=== PATIENT | female | born 1985 | race Caucasian/White ===

== ENCOUNTER 2020-10-20 17:32 | Emergency (ER) | payer OTHER, SELFPAY ==
[2020-10-20 17:45] VITALS: BP 124/82; PULSE 75; RESP 16; TEMP 36.5; O2SAT 96
--- NOTE | 2020-10-20 18:05 | ED.WOUNDLAC ---
HPI - Wound/Laceration General Chief Complaint: Wound/Laceration Stated Complaint: cut finger Time Seen by Provider: 10/20/20 17:50 Source: patient Mode of arrival: ambulatory Limitations: no limitations History of Present Illness HPI narrative: Patient comes in after cutting off tip of left index finger. The laceration was fairly close to the periosteum, and it appears she was bleeding quite a bit to start with, but this has now stopped. Laceration happened just prior to arrival. Place: home Patient tetanus UTD: Yes Context: accidental Associated symptoms: pain Related Data Home Medications Medication Instructions Recorded Confirmed norethindrone-e.estradiol-iron 1 tablet PO DAILY 10/20/20 10/20/20 [Aurovela Fe 1-20 (28)] Allergies Allergy/AdvReac Type Severity Reaction Status Date / Time No Known Allergies Allergy Unverified 09/12/11 13:22 Review of Systems Constitutional: Constitutional: Reports no additional constitutional complaints Eyes: Eyes: Reports no additional eye complaints ENT: Reports system reviewed and no additional complaints, except as documented Cardiovascular: Cardiovascular: Reports no additional cardiovascular complaints Respiratory: Respiratory: Reports no additional respiratory complaints Gastrointestinal: Gastrointestinal: Reports no additional gastrointestinal complaints Genitourinary: Genitourinary: Reports no additional female genitourinary complaints Musculoskeletal: Musculoskeletal: Reports no additional musculoskeletal complaints Integumentary/Breasts: Skin/Breast: Reports system reviewed and no additional complaints, except as docu Neurologic: Reports system reviewed and no additional complaints, except as documented Psychiatric: Psychiatric: Reports no additional psychiatric complaints Endocrine: Endocrine: Reports no additional endocrine complaints Hematologic/Lymphatic: Hematologic/Lymphatic: Reports no additional hematologic/lymphatic complaints Allergic/Immunologic: Allergic/Immunologic: Reports no additional allergic/immunologic complaints [facility] Past Medical History Medical History (Updated 10/21/20 @ 00:12 by Fran Thurman MD) Renal calculi Surgical History Surgical History History of cholecystectomy Family History Family History Mother Family history non-contributory Social History Social History Smoking status: Never smoker Alcohol intake: never Exam Const: General: no acute distress Orientation/consciousness: patient oriented x3 HENMT: Head: normal to inspection Ears: external ears normal Face and sinus: normal facial exam Mouth: Yes Abnormal oral and palatal mucosa present Throat: posterior oropharynx normal Eyes: Conjunctivae: conjunctivae normal Neck: Neck: normal visual inspection and no lymphadenopathy Chest: Chest palpation & inspection: normal inspection of the chest Resp: Effort & Inspection: normal respiratory effort Auscultation: clear to auscultation bilaterally Cardio: Rate: regular rate Rhythm: regular rhythm GI: GI Palp: Yes Soft to palpation (nontender) Skin: General skin exam: normal color Other: Tip of left index finger has been cut off. THis wound is now no longer bleeding. Neuro: General: patient oriented x3 Extrem: General: normal to inspection Psych: Appearance: grossly normal Mental Status: mental status grossly normal Thought content: Yes Normal thought content present Course Course Emergency Course: Wound was simply washed. It spontaneously achieved hemostasis. Vital Signs Vital signs: Vital Signs Temperature 36.5 C 10/20/20 17:45 Pulse Rate 75 10/20/20 17:45 Respiratory Rate 16 10/20/20 17:45 Blood Pressure 124/82 10/20/20 17:45 Pulse Oximetry 96 10/20/20 17:45 Temperature 36.5 C 10/20/20 18:07
[2020-10-20 18:07] VITALS: BP 124/82; PULSE 75; RESP 15; TEMP 36.5; O2SAT 96
== END 2020-10-20 18:05 | disposition home or self-care (01) ==
PROVIDERS: Emergency Provider Emergency Medicine; PCP Family Medicine
DX: S61.211A Laceration without foreign body of left index finger without damage to nail, initial encounter (principal); W45.8XXA Other foreign body or object entering through skin, initial encounter
CPT/HCPCS: 99282

== ENCOUNTER 2021-07-13 08:00 | Outpatient (CLI) | payer OTHER, SELFPAY ==
[2021-07-13 08:20] LABS: Basophils Absolute Auto 0.02 K/mm3 (0.00-0.10); Basophils Percent Auto 0.3 % (0.0-1.0); Eosinophils Absolute Auto 0.14 K/mm3 (0.02-0.50); Eosinophils Percent Auto 1.9 % (1.0-6.0); Hematocrit 38.9 % (35.0-49.0); Hemoglobin 13.3 g/dL (12.0-15.0); Immature Granulocyte Absolute 0.02 K/mm3 (0.00-0.00); Immature Granulocyte Percent A 0.3 % (0.0-0.0); Lymphocytes Absolute Auto 2.25 K/mm3 (1.10-4.50); Mean Corpuscular HGB Conc 34.2 g/dL (32.0-36.0); Mean Corpuscular Hemoglobin 28.4 pg (27.0-31.0); Mean Corpuscular Volume 82.9 fL (78.0-102.0); Mean Platelet Volume 8.9 fl (9.2-11.8); Monocytes Absolute Auto 0.65 K/mm3 (0.10-0.90); Neutrophils Absolute Auto 4.2 K/mm3 (1.7-7.2); Neutrophils Percent Auto 57.5 % (50.0-70.0); Platelet Count Result 250 K/mm3 (150-420); Red Blood Count 4.69 M/mm3 (4.20-5.40); Red Cell Distribution Width 12.9 % (11.6-14.4); White Blood Count 7.3 K/mm3 (4.8-10.8)
[2021-07-13 09:15] LABS: Alanine Aminotransferase 20 U/L (14-59); Alkaline Phosphatase 72 U/L (46-116); Anion Gap 11 mmol/L (8-16); Aspartate Amino Transferase 13 U/L (15-37); Bilirubin,Total 0.4 mg/dL (0.00-1.00); Blood Urea Nitrogen 11 mg/dL (7-18); Calcium 8.3 mg/dL (8.5-10.1); Carbon Dioxide 24 mmol/L (21-32); Chloride 106 mmol/L (98-108); Cholesterol 193 mg/dL (0-200); Estimated Glomerular Filt Rate > 60; Glucose 88 mg/dL (70-99); HDL Direct 39 mg/dL (40-60); LDL Cholesterol Calculated 117 mg/dL (<130); Osmolality Calculated 290 mOsm/kg (285-295); Potassium 4.2 mmol/L (3.5-5.1); Sodium 141 mmol/L (136-145); Thyroid Stimulating Hormone 1.92 uIU/mL (0.36-3.74); Total Protein 6.7 g/dL (6.4-8.2); Triglycerides 186 mg/dL (0-150)
== END 2021-07-13 08:01 | disposition home or self-care (01) ==
LOC: CHSLAB 08:05
PROVIDERS: PCP Family Medicine
DX: N92.0 Excessive and frequent menstruation with regular cycle (principal); Z13.0 Encounter for screening for diseases of the blood and blood-forming organs and certain disorders involving the immune mechanism; Z13.29 Encounter for screening for other suspected endocrine disorder; Z13.1 Encounter for screening for diabetes mellitus; Z13.220 Encounter for screening for lipoid disorders
CPT/HCPCS: 36415; 80053; 80061; 84443; 85025

== ENCOUNTER 2022-04-07 17:24 | Emergency (ER) | payer OTHER, SELFPAY ==
[2022-04-07 17:33] VITALS: BP 123/91; PULSE 101; RESP 16; TEMP 36.4; O2SAT 99
--- NOTE | 2022-04-07 17:40 | ED.GENADULT ---
HPI - General Adult General Chief complaint: Unspecified Stated complaint: spider bite L arm History of Present Illness HPI narrative: Sarah presented to the ED with a spider bite on her left forearm that that occurred 2 days ago. She thinks there might be some redness swelling. There is no drainage, fevers, chills or systemic symptoms reported. Related Data Home Medications Medication Instructions Recorded Confirmed norethindrone 1 mg-ethinyl 1 tablet PO DAILY 10/20/20 04/07/22 estradiol 20 mcg (21)-iron 75 mg (7) tablet (Aurovela Fe 1-20 (28)) Allergies Allergy/AdvReac Type Severity Reaction Status Date / Time No Known Allergies Allergy Unverified 04/07/22 17:37 Review of Systems Review of Systems: All systems reviewed & are unremarkable except as noted in HPI and below PMFSH Past Medical History Medical History Renal calculi Surgical History Surgical History History of cholecystectomy Family History Family History Mother Family history non-contributory Social History Social History Smoking status: Never smoker Alcohol intake: never Exam Const: Nutritional Appearance: average body habitus and well nourished Orientation/consciousness: oriented to person, oriented to place and oriented to time HENMT: Head: normal to inspection Eyes: General: appearance normal, both eyes and all related structures Chest: Chest palpation & inspection: normal inspection of the chest Resp: Effort & Inspection: normal respiratory effort and able to speak in complete sentences Auscultation: clear to auscultation bilaterally Cardio: Rate: tachycardic Skin: Other: On the anterior side of the left forearm there is a small erythematous papule (<1mm) with no surrounding erythema, drainage, induration or fluctuance Neuro: General: oriented to person, oriented to place and oriented to time Extrem: General: normal to inspection Psych: Appearance: grossly normal Course Vital Signs Vital signs: Vital Signs Temperature 97.5 F L 04/07/22 17:33 Pulse Rate 101 H 04/07/22 17:33 Respiratory Rate 16 07/24/22 17:33 Blood Pressure 123/91 H 04/07/22 17:33 Pulse Oximetry 99 04/07/22 17:33 Oxygen Delivery Room Air 04/07/22 17:33 Temperature 97.5 F L 04/07/22 17:33 Pulse Rate 101 H 04/07/22 17:33 Respiratory Rate 16 04/07/22 17:33 Blood Pressure 123/91 H 04/07/22 17:33 Pulse Oximetry 99 04/07/22 17:33 Oxygen Delivery Room Air 04/07/22 17:33 Medical Decision Making Vital Signs Vital Signs: Vital Signs Temperature 97.5 F L 04/07/22 17:33 Pulse Rate 101 H 04/07/22 17:33 Respiratory Rate 16 04/07/22 17:33 Blood Pressure 123/91 H 04/07/22 17:33 Pulse Oximetry 99 04/07/22 17:33 Oxygen Delivery Room Air 04/07/22 17:33 Temperature 97.5 F L 04/07/22 17:33 Pulse Rate 101 H 04/07/22 17:33 Respiratory Rate 16 04/07/22 17:33 Blood Pressure 123/91 H 04/07/22 17:33 Pulse Oximetry 99 04/07/22 17:33 Oxygen Delivery Room Air 04/07/22 17:33 Discharge Plan Discharge Clinical Impression: Accidental spider bite Patient Disposition: Home, Self-Care Condition: Stable Prescriptions: No Action norethindrone-e.estradiol-iron [Aurovela Fe 1-20 (28)] 1 mg-20 mcg (21)/75 mg (7) tablet 1 tablet PO DAILY Follow-up/Referrals: Alex,Nilam Stoddard MD [Primary Care Provider] -
[2022-04-07 17:44] VITALS: BP 123/91; PULSE 101; RESP 16; TEMP 36.4; O2SAT 99
== END 2022-04-07 17:45 | disposition home or self-care (01) ==
PROVIDERS: Emergency Provider Family Medicine; PCP Family Medicine
DX: T63.301A Toxic effect of unspecified spider venom, accidental (unintentional), initial encounter (principal)
CPT/HCPCS: 99281

== ENCOUNTER 2022-07-03 15:34 | Outpatient (CLI) | payer OTHER, SELFPAY ==
--- NOTE | ~2022-07-03 | XR_ITS ---
EXAMINATION: XR chest 2V Exam Date/Time: 07/03/2022 15:45 CDT HISTORY: cough, nasal congestion Comparison: None available. RESULT: Lines, tubes, and devices: Cholecystectomy clips. Lungs and pleura: Clear. Cardiomediastinal silhouette: Normal. Other: No acute osseous or upper abdominal finding. IMPRESSION: No acute cardiopulmonary process. Reviewed, dictated and finalized at location K.
== END 2022-07-03 15:35 | disposition home or self-care (01) ==
LOC: CHSIMG 15:37
PROVIDERS: PCP Family Medicine; Visit Provider Family Medicine
DX: R05.9 Cough, unspecified (principal); R09.81 Nasal congestion
CPT/HCPCS: 71046

== ENCOUNTER 2022-10-01 11:07 | Emergency (ER) | payer OTHER, SELFPAY ==
[2022-10-01 11:07] VITALS: BP 146/93; PULSE 88; RESP 18; TEMP 36; O2SAT 98
[2022-10-01 11:13] VITALS: BP 149/93; PULSE 95; RESP 16; TEMP 36; O2SAT 98
--- NOTE | 2022-10-01 11:19 | ED.DENTAL ---
HPI - Dental/Oral General Chief complaint: Dental/Oral Stated complaint: dental pain Time Seen by Provider: 10/01/22 11:18 Source: patient and RN notes reviewed Mode of arrival: ambulatory Limitations: no limitations History of Present Illness Complaint: tooth pain Location: Tooth # (4) Onset (ago): day(s) (3) Duration: constant Severity: severe Relieving factors: nothing Treatment prior to arrival: topical analgesic and oral analgesic Related Data Home Medications Medication Instructions Recorded Confirmed norethindrone 1 mg-ethinyl 1 tablet PO DAILY 10/20/20 10/01/22 estradiol 20 mcg (21)-iron 75 mg (7) tablet (Aurovela Fe 1-20 (28)) Allergies Allergy/AdvReac Type Severity Reaction Status Date / Time No Known Allergies Allergy Unverified 10/01/22 11:16 Review of Systems Review of Systems: All systems reviewed & are unremarkable except as noted in HPI and below Constitutional: Constitutional: Denies chills and Denies fever(s) PMFSH Past Medical History Medical History Renal calculi Surgical History Surgical History History of cholecystectomy Family History Family History Mother Family history non-contributory Social History Social History Smoking status: Never smoker Alcohol intake: never Exam Const: General: healthy appearing and no acute distress Nutritional Appearance: well nourished and obese Orientation/consciousness: patient oriented x3 Limitations: no limitations HENMT: Head: normal to inspection Ears: external ears normal Face/Nose/Sinus: Normal external nose present Face and sinus: normal facial exam Teeth and gingiva: abnormal tooth and associated gingiva upper right second molar tender Throat: posterior oropharynx normal Eyes: Conjunctivae: conjunctivae normal Pupils: Equal, round and reactive pupils present EOM: EOMs intact bilaterally Neck: Neck: normal visual inspection Resp: Effort & Inspection: normal respiratory effort Auscultation: clear to auscultation bilaterally Cardio: Rate: regular rate Rhythm: regular rhythm GI: GI Palp: Yes Soft to palpation and No Tenderness to palpation present (GI) Auscultation: normal bowel sounds Back/Spine/Pelvis: Cervical Spine: cervical ROM normal Thoracic/Lumbar Spine: thoraco-lumbar ROM normal Skin: General skin exam: normal color Rashes: no rashes Neuro: General: patient oriented x3, moves all extremities, no focal motor deficits and CN's II-XI intact bilaterally Speech: normal speech Gait exam (Neuro): Normal gait present Extrem: General: normal to inspection and no clubbing, cyanosis or edema Psych: Mental Status: mental status grossly normal Affect: normal affect Attitude: cooperative Course Vital Signs Vital signs: Vital Signs Temperature 36.0 C L 10/01/22 11:07 Pulse Rate 88 10/01/22 11:07 Respiratory Rate 18 10/01/22 11:07 Blood Pressure 146/93 H 10/01/22 11:07 Pulse Oximetry 98 10/01/22 11:07 Oxygen Delivery Room Air 10/01/22 11:07 Temperature 36.0 C L 10/01/22 12:07 Pulse Rate 95 10/01/22 12:07 Respiratory Rate 16 10/01/22 12:07 Blood Pressure 149/93 H 10/01/22 12:07 Pulse Oximetry 98 10/01/22 12:07 Oxygen Delivery Room Air 10/01/22 12:07 MDM - Dental/Oral MDM Narrative Medical decision making narrative: under not see any evidence of infection. There is no abscess no swelling along the gum line. Differential Diagnosis Differential diagnosis: Likely gingival abscess, dental caries, toothache and dental abscess Discharge Plan Discharge Clinical Impression: Toothache Patient Disposition: Home, Self-Care Condition: Stable Instructions: Toothache (ED) Additional Instructions: Use Tylenol as needed in between the nab
[2022-10-01 12:07] VITALS: BP 149/93; PULSE 95; RESP 16; TEMP 36; O2SAT 98
== END 2022-10-01 12:08 | disposition home or self-care (01) ==
LOC: CHSED 11:35
PROVIDERS: Emergency Provider Emergency Medicine; PCP Family Medicine
DX: K08.89 Other specified disorders of teeth and supporting structures (principal)
CPT/HCPCS: 99283

== ENCOUNTER 2022-10-11 11:48 | Emergency (ER) | payer OTHER, SELFPAY ==
[2022-10-11 11:51] VITALS: BP 123/69; PULSE 89; RESP 16; TEMP 36.8; O2SAT 97
--- NOTE | 2022-10-11 12:03 | ED.URI ---
HPI - URI/Sore Throat General Chief Complaint: Upper Respiratory Infection Stated Complaint: flu symptoms Time Seen by Provider: 10/11/22 12:01 Source: patient and RN notes reviewed Mode of arrival: ambulatory Limitations: no limitations History of Present Illness MD elicited complaint: fever ( subjective) and sore throat Onset (ago): day(s) (1) Consistency: constant Severity: moderate Description of mucous: clear Able to tolerate fluids by mouth: Yes Exacerbating factors: swallowing Relieving factors: nothing Associated symptoms: chills and myalgias Treatments prior to arrival: ibuprofen and cold medicine Related Data Home Medications Medication Instructions Recorded Confirmed norethindrone 1 mg-ethinyl 1 tablet PO DAILY 10/20/20 10/11/22 estradiol 20 mcg (21)-iron 75 mg (7) tablet (Aurovela Fe 1-20 (28)) Allergies Allergy/AdvReac Type Severity Reaction Status Date / Time No Known Allergies Allergy Unverified 10/11/22 11:50 PMFSH Past Medical History Medical History Renal calculi Surgical History Surgical History History of cholecystectomy Family History Family History Mother Family history non-contributory Social History Social History Smoking status: Never smoker Alcohol intake: never Course Vital Signs Vital signs: Vital Signs Temperature 36.8 C 10/11/22 11:51 Pulse Rate 89 10/11/22 11:51 Respiratory Rate 16 10/11/22 11:51 Blood Pressure 123/69 10/11/22 11:51 Pulse Oximetry 97 10/11/22 11:51 Oxygen Delivery Room Air 10/11/22 11:51 Temperature 36.8 C 10/11/22 11:51 Pulse Rate 89 10/11/22 11:51 Respiratory Rate 16 10/11/22 11:51 Blood Pressure 123/69 10/11/22 11:51 Pulse Oximetry 98 10/11/22 12:40 Oxygen Delivery Room Air 10/11/22 12:40 MDM - URI/Sore Throat Differential Diagnosis Differential diagnosis: Likely upper respiratory infection, viral infection, bronchitis, influenza, pharyngitis and other ( COVID, strep pharyngitis) Lab Data Attestation: I reviewed the patient's lab results. Labs: Lab Results 10/11/22 10/11/22 Range/Units 12:01 12:01 Influenza A (RT-PCR) Negative (Negative) Influenza B (RT-PCR) Negative (Negative) SARS-CoV-2 RNA (RT-PCR) Negative (Negative) Group A Strep (PCR) Detected A (Negative) Discharge Plan Discharge Clinical Impression: Strep throat Patient Disposition: Home, Self-Care Condition: Stable Instructions: Antibiotic Form, Strep Throat (ED) Additional Instructions: focusing on the lips, do not drink from anyone else's glass, no one should drink [place] glass, in 3-4 days get a new toothbrush. If your sexually active use another form of control condoms, spermicide gel while you are on antibiotics. Prescriptions: New amoxicillin 250 mg capsule 250 mg PO TID 10 Days Qty: 30 0RF No Action norethindrone-e.estradiol-iron [Aurovela Fe 1-20 (28)] 1 mg-20 mcg (21)/75 mg (7) tablet 1 tablet PO DAILY Follow-up/Referrals: Alex,Nilam Stoddard MD [Primary Care Provider] - Time of Disposition: 12:52
--- NOTE | 2022-10-11 12:10 | PC.NURSE ---
In room with Dr. Johnson during physical exam
[2022-10-11 12:33] LABS: Strep Group A RT-PCR DETECTED (Negative)
[2022-10-11 12:40] VITALS: O2SAT 98
[2022-10-11 12:47] LABS: Influenza A QL RT-PCR Negative (Negative); Influenza B QL RT-PCR Negative (Negative); SARS-CoV-2 RNA PCR Negative (Negative)
[2022-10-11 12:58] VITALS: BP 151/98; PULSE 98; RESP 17; TEMP 36.9; O2SAT 98
== END 2022-10-11 13:00 | disposition home or self-care (01) ==
PROVIDERS: Emergency Provider Emergency Medicine; PCP Family Medicine
DX: J02.0 Streptococcal pharyngitis (principal); Z20.822 Contact with and (suspected) exposure to COVID-19
CPT/HCPCS: 87502; 87651; 99283; U0003; U0005

== ENCOUNTER 2023-07-08 10:24 | Emergency (ER) | payer OTHER, SELFPAY ==
[2023-07-08 10:24] VITALS: BP 116/94; PULSE 108; RESP 18; TEMP 36.4; O2SAT 99
--- NOTE | 2023-07-08 10:31 | ED.URI ---
HPI - URI/Sore Throat General Chief Complaint: Upper Respiratory Infection Stated Complaint: covid positive Time Seen by Provider: 07/08/23 10:31 Source: patient and RN notes reviewed Mode of arrival: ambulatory Limitations: no limitations History of Present Illness HPI Narrative: Patient states that she had at home COVID test that was positive but she also noticed that it was . She comes in for a repeat COVID test. She then found out while she was here that her boyfriend tested positive for COVID. I explained to her that there are no false negative [id number] COVID test. MD elicited complaint: sore throat and nasal congestion Onset (ago): day(s) (2) Consistency: constant Severity: moderate Description of mucous: clear Able to tolerate fluids by mouth: Yes Exacerbating factors: nothing Relieving factors: nothing Context: sick contacts Associated symptoms: denies other symptoms Treatments prior to arrival: none Related Data Home Medications Medication Instructions Recorded Confirmed No Home Medications 07/08/23 07/08/23 Allergies Allergy/AdvReac Type Severity Reaction Status Date / Time No Known Allergies Allergy Unverified 07/08/23 10:31 Review of Systems Review of Systems: All systems reviewed & are unremarkable except as noted in HPI and below PMFSH Past Medical History Medical History (Updated 07/08/23 @ 10:39 by Fran Johnson MD) Renal calculi Surgical History Surgical History (Updated 07/08/23 @ 10:39 by Fran Johnson MD) History of section History of cholecystectomy Family History Family History Mother Family history non-contributory Social History Social History Smoking status: Never smoker Alcohol intake: never Exam Const: General: healthy appearing, no acute distress and alert Nutritional Appearance: well nourished and obese morbidly obese Orientation/consciousness: patient oriented x3 Limitations: no limitations 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 HENMT: Head: normal to inspection Ears: external ears normal Face/Nose/Sinus: Normal external nose present Face and sinus: normal facial exam Mouth: Yes moist mucous membranes Eyes: Conjunctivae: conjunctivae normal Pupils: Equal, round and reactive pupils present EOM: EOMs intact bilaterally Neck: Neck: normal visual inspection Resp: Effort & Inspection: normal respiratory effort Auscultation: clear to auscultation bilaterally Cardio: Rate: tachycardic Rhythm: regular rhythm GI: GI Palp: Yes Soft to palpation and No Tenderness to palpation present (GI) Auscultation: normal bowel sounds Back/Spine/Pelvis: Cervical Spine: cervical ROM normal Thoracic/Lumbar Spine: thoraco-lumbar ROM normal Skin: General skin exam: normal color Rashes: no rashes Neuro: General: patient oriented x3, moves all extremities, no focal motor deficits and CN's II-XI intact bilaterally Speech: normal speech Gait exam (Neuro): Normal gait present Extrem: General: normal to inspection and no clubbing, cyanosis or edema Psych: Mental Status: mental status grossly normal Affect: normal affect Attitude: cooperative MDM - URI/Sore Throat Differential Diagnosis Differential diagnosis: Likely other ( COVID) Discharge Plan Discharge Clinical Impression: COVID-19 Patient Disposition: Home, Self-Care Condition: Stable Instructions: COVID-19 (Coronavirus Disease 2019) (ED), Face Coverings (Masks) and COVID-19 (ED), Social Distancing Guidelines for COVID-19 (ED) Additional Instructions: drink plenty of fluids, get plenty of rest. Quarantine for 5 days. Prescriptions: No Action No Home Medications Follow-up/Referrals: Alex,Nilam Stoddard MD [Primary Care Provider] - Time of Disposition: 10:39
[2023-07-08 10:36] VITALS: O2SAT 99
[2023-07-08 10:50] VITALS: BP 116/94; PULSE 108; RESP 18; TEMP 36.4; O2SAT 99
== END 2023-07-08 10:50 | disposition home or self-care (01) ==
LOC: CHSED 10:41
PROVIDERS: Emergency Provider Emergency Medicine; PCP Family Medicine
DX: U07.1 COVID-19 (principal)
CPT/HCPCS: 99281

== ENCOUNTER 2023-08-30 12:25 | Emergency (ER) | payer OTHER, SELFPAY ==
[2023-08-30] VITALS (29 sets, daily range): BP systolic 100–126; BP diastolic 61–91; PULSE 62–152; RESP 14–17; TEMP 36.6–37.5; O2SAT 96–100
--- NOTE | ~2023-08-30 | XR_ITS ---
EXAMINATION: XR chest 1V portable 08/30/2023 13:51 INDICATION: Fever and congestion. Cough and shortness of breath. PROCEDURE: AP portable chest COMPARISON: 07/03/2022 FINDINGS: The lungs are clear. The cardiomediastinal silhouette is within normal limits. There are no pleural effusions. There is no pneumothorax suspected. IMPRESSION: 1: NO ACUTE CARDIOPULMONARY DISEASE. Reviewed, dictated and finalized at location A. T SENIOR MANAGER
--- NOTE | 2023-08-30 12:36 | ED.URI ---
HPI - URI/Sore Throat General Chief Complaint: Upper Respiratory Infection Stated Complaint: nausea; cough; congestion Time Seen by Provider: 08/30/23 12:36 Source: patient Mode of arrival: ambulatory Limitations: no limitations History of Present Illness HPI Narrative: 38-year-old female presents with a 4 day history of -- low-grade fever -- sore throat -- nausea with vomiting. She had 3 episodes of vomiting today. No hematemesis or melena. -- Loose stools. She had 2 episodes of diarrhea today. -- Generalized weakness and body ache --menorrhagia MD elicited complaint: fever, cough and sore throat Onset (ago): day(s) ( 4 days) Consistency: constant Severity: severe Exacerbating factors: nothing Relieving factors: nothing Associated symptoms: denies other symptoms Treatments prior to arrival: none Related Data Home Medications Medication Instructions Recorded Confirmed No Home Medications 07/08/23 08/30/23 Allergies Allergy/AdvReac Type Severity Reaction Status Date / Time No Known Allergies Allergy Verified 08/30/23 12:40 Review of Systems Review of Systems: All systems reviewed & are unremarkable except as noted in HPI and below Constitutional: Constitutional: Reports as per HPI and Reports no additional constitutional complaints Eyes: Eyes: Reports as per HPI and Reports no additional eye complaints ENT: Reports system reviewed and no additional complaints, except as documented, Reports as per HPI and Reports sore throat Cardiovascular: Cardiovascular: Reports as per HPI and Reports no additional cardiovascular complaints Respiratory: Respiratory: Reports as per HPI, Reports no additional respiratory complaints and Reports cough Gastrointestinal: Gastrointestinal: Reports as per HPI Genitourinary: Genitourinary: Reports no additional female genitourinary complaints Comments: LAST MENSTRUAL CYCLE HAD MENORRHAGIA Musculoskeletal: Musculoskeletal: Reports no additional musculoskeletal complaints and Reports as per HPI Integumentary/Breasts: Skin/Breast: Reports system reviewed and no additional complaints, except as docu and Reports as per HPI Neurologic: Reports system reviewed and no additional complaints, except as documented and Reports as per HPI Psychiatric: Psychiatric: Reports no additional psychiatric complaints and Reports as per HPI Endocrine: Endocrine: Reports no additional endocrine complaints and Reports as per HPI Hematologic/Lymphatic: Hematologic/Lymphatic: Reports no additional hematologic/lymphatic complaints and Reports as per HPI Allergic/Immunologic: Allergic/Immunologic: Reports no additional allergic/immunologic complaints and Reports as per HPI [facility] Past Medical History Medical History Renal calculi Surgical History Surgical History History of section History of cholecystectomy Family History Family History Mother Family history non-contributory Social History Social History Smoking status: Never smoker Alcohol intake: never Exam Const: General: ill appearing Nutritional Appearance: obese Orientation/consciousness: patient oriented x3 Limitations: no limitations HENMT: Head: normal to inspection Ears: external ears normal Face/Nose/Sinus: Normal external nose present Face and sinus: normal facial exam Mouth: Yes Normal oral and palatal mucosa present Other: acute exudate of tonsillitis Eyes: Conjunctivae: conjunctivae normal Pupils: Equal, round and reactive pupils present EOM: EOMs intact bilaterally Direct Ophthalmoscopy: no photophobia Neck: Neck: normal visual inspection, no meningeal signs and lymphadenopathy Chest: Chest palpation & inspection: normal inspection of the chest Resp: E
[2023-08-30 12:53] LABS: Hematocrit 24.9 % (35.0-49.0); Immature Platelet Fraction Pct 11.1 % (1.0-7.0); Mean Corpuscular HGB Conc 36.1 g/dL (32.0-36.0); Mean Corpuscular Hemoglobin 34.1 pg (27.0-31.0); Mean Corpuscular Volume 94.3 fL (78.0-102.0); Mean Platelet Volume 11.6 fl (9.2-11.8); Platelet Count Result 26 K/mm3 (150-420); Red Blood Count 2.64 M/mm3 (4.20-5.40); Red Cell Distribution Width 15.9 % (11.6-14.4); White Blood Count 3.1 K/mm3 (4.8-10.8)
[2023-08-30] MEDS: KETOROLAC 30 MG/ML VIAL (*BKC) IM (13:00)
[2023-08-30 13:04] LABS: Bilirubin Urine 1+ (Negative); Blood Urine 2+ (Negative); Color Urine Yellow (Yellow); Glucose Urine UA Negative (Negative); Ketones Urine 3+ (Negative); Leukocyte Esterase Ur Negative LEU/UL (Negative); Nitrate Urine Negative (Negative); Protein Urine 3+ (Negative); Specific Grav Ur 1.025 (1.010-1.020)
[2023-08-30 13:06] LABS: Alanine Aminotransferase 34 U/L (14-59); Albumin Level 3.1 g/dL (3.4-5.0); Alkaline Phosphatase 80 U/L (46-116); Anion Gap 7 mmol/L (8-16); Aspartate Amino Transferase 21 U/L (15-37); Bilirubin,Total 0.5 mg/dL (0.00-1.00); Blood Urea Nitrogen 3 mg/dL (7-18); Calcium 8.8 mg/dL (8.5-10.1); Carbon Dioxide 30 mmol/L (21-32); Chloride 94 mmol/L (98-108); Estimated CRCL calculation 98 ml/min; Estimated Glomerular Filt Rate > 60; Glucose 127 mg/dL (70-99); Lipase 34 U/L (16-77); Osmolality Calculated 270 mOsm/kg (285-295); Potassium 3.3 mmol/L (3.5-5.1); Sodium 131 mmol/L (136-145); Total Protein 7.9 g/dL (6.4-8.2)
[2023-08-30 13:09] LABS: Add Urine Microscopic? YES; Appearance Urine Cloudy (Clear); Bacteria Urine 1+ /hpf; Squamous Epithelial Cell Urine Moderate /hpf (Few); WBC Urine None seen /hpf (0-3)
[2023-08-30 13:10] LABS: Pregnancy On Board Control Positive; Urine Pregnancy Test Negative
[2023-08-30 13:12] LABS: Lactic Acid Reflex 1.2 mmol/L (0.4-2.0)
[2023-08-30 13:20] LABS: Atypical Lymphocytes Present; Band Neutrophils Percent 0 % (0-6); Basophils Percent Manual 0 % (0-1); Eosinophils Absolute Manual 0.03 K/mm3 (0.02-0.5); Eosinophils Percent Manual 1 % (1-6); Lymphocytes Absolute Manual 1.82 K/mm3 (1.1-4.5); Lymphocytes Percent Manual 59 % (18-44); Monocytes Absolute Manual 0.74 K/mm3 (0.1-0.90); Monocytes Percent Manual 24 % (3-9); Neutrophils Absolute Manual 0.49 K/mm3 (1.7-7.2); Neutrophils Percent Manual 16 % (46-73); Platelet Estimate Decreased (Adequate); Total Cells Counted 100
[2023-08-30 13:21] LABS: Strep Group A RT-PCR NOT DETECTED (Negative)
[2023-08-30 13:28] LABS: SARS-CoV-2 RNA PCR Negative (Negative)
[2023-08-30 13:29] LABS: Influenza A QL RT-PCR Negative (Negative); Influenza B QL RT-PCR Negative (Negative); RSV RNA, RT-PCR Negative (Negative)
[2023-08-30 14:09] LABS: Monoscreen Negative (Negative); Negative Monotest Control Negative (Negative); Positive Monotest Control Positive (Positive)
[2023-08-30] MEDS: AMOXICILLIN/CLAVULANATE K 875-125 MG TAB 1 TABLET PO (14:14)
--- NOTE | 2023-09-06 12:15 | PC.NURSE ---
Final blood culture report, no growth after 5 days. no further treatment or action needed.
== END 2023-08-30 17:35 | disposition short-term general hospital (02) ==
PROVIDERS: Emergency Provider Internal Medicine Critical Care Medicine
DX: D61.818 Other pancytopenia (principal); J03.90 Acute tonsillitis, unspecified; K52.9 Noninfective gastroenteritis and colitis, unspecified; Z20.822 Contact with and (suspected) exposure to COVID-19
CPT/HCPCS: 32551; 36415; 36556; 71045; 80053; 81001; 81025; 83605; 83690; 85025; 85055; 85610; 86308; 87040; 87637; 87651; 96372; 99285; A9270; J1885

== ENCOUNTER 2023-08-30 18:32 | Inpatient (IN) | payer OTHER, SELFPAY ==
--- NOTE | ~2023-08-30 | BM_ITS ---
EXAMINATION: CCL bone marrow asp w bx diag ORDER COMPLETED DATE: 09/02/2023 10:49 INDICATION: Pancytopenia TECHNIQUE: A time-out was performed to verify the patient's name, date of , and procedure to b e performed. The procedure including the risks and benefits was discussed with the patient. Risks dis cussed included bleeding, infection and allergic reaction. The patient understood the risks and agree d to proceed. The skin overlying the right posterior iliac spine was prepped and draped in usual ster ile fashion. Anesthetic was administered with 1% lidocaine subcutaneously. Moderate conscious sedati on was achieved with 100 mcg fentanyl IV. An 11 gauge needle was inserted into the right ilium with f luoroscopic guidance. Bone marrow was aspirated. An 8 gauge needle was then inserted into the right i lium with fluoroscopic guidance. A core bone marrow biopsy was obtained. The needle was removed and t he entry site was cleaned and dressed. There were no immediate complications. A total of 21 fluorosc opic images were recorded. Fluoroscopy exposure time was 0.4 minutes. Total DAP was 3172 mGycm^2 FINDINGS: Real-time fluoroscopy demonstrates the biopsy needle tip overlying the right posterior annamaria c spine. IMPRESSION: 1. Successful fluoroscopic guided bone marrow aspiration. 2. Successful fluoroscopic guided bone marrow biopsy. Reviewed, dictated and finalized at location A. CONSULTANT
--- NOTE | ~2023-08-30 | CT_ITS ---
EXAMINATION: CT soft tissue neck w con DATE: 08/30/2023 23:28 INDICATION: Lymphadenopathy. Tonsillar exudate. TECHNIQUE: Computed tomography (CT) of the neck was performed with 75 mL Omnipaque-350 intravenous co ntrast. The dose-length product was 619.15 mGy-cm. Automated exposure control and iterative reconstru ction technique were employed. COMPARISON: None FINDINGS: Lung apices are normal. No intracranial abnormality. No significant vascular abnormality. M ild cervical lymphadenopathy, likely reactive. There is enlargement of the fascial tonsils and adenoi ds, consistent with tonsillitis. No discrete abscess identified. There is mild narrowing of the airwa y. There is mild mucosal thickening of the paranasal sinuses. IMPRESSION: 1. Enlarged tonsils and adenoids, consistent with tonsillitis. No discrete abscess. 2: Enlarged cervical lymph nodes, likely reactive. 3: Mild sinusitis. Reviewed, dictated and finalized at location A. FFIN MACHINE OPERATOR IMPRESSION: 1. Enlarged tonsils and adenoids, consistent with tonsillitis. No discrete absc ess. 2: Enlarged cervical lymph nodes, likely reactive. 3: Mild sinusitis.
--- NOTE | ~2023-08-30 | US_ITS ---
EXAMINATION: US abdomen complete DATE: 09/01/2023 11:52 INDICATION: Pancytopenia TECHNIQUE: Multiple grayscale and Doppler ultrasound images of the abdomen were obtained. COMPARISON: CT, 08/30/2023 FINDINGS: Bowel gas obscures visualization of the pancreas. The visualized portions of the pancreas a re unremarkable. The liver demonstrates increased echogenicity, heterogenous echotexture, and decreas ed through transmission. No surface nodularity. Normal hepatopetal flow in the main portal vein. López ges of cholecystectomy are noted. The normal common bile duct measures 4 mm. The visualized portions of the aorta and inferior vena cava are normal. The spleen is normal in appearance and measures 10.8 cm. The right kidney measures 11.2 x 5.4 x 6.7 c m. The left kidney measures 12.3 x 5.8 x 6.1 cm. The kidneys demonstrate normal parenchymal echogenic ity. There is no hydronephrosis. IMPRESSION: 1. Diffuse hepatic steatosis. Reviewed, dictated and finalized at location B. VE FIXER
--- NOTE | ~2023-08-30 | CT_ITS ---
EXAMINATION: CT sinus wo con DATE: 09/01/2023 17:42 INDICATION: Cervical lymphadenopathy TECHNIQUE: Computed tomography (CT) of the paranasal sinuses was performed without intravenous contra st. The dose-length product was 333.52 mGy-cm. Automated exposure control and iterative reconstructio n technique were employed. COMPARISON: None FINDINGS: There is mucosal thickening of the left frontal, ethmoid, sphenoid and maxillary sinuses. N o air-fluid levels. Ostiomeatal units are occluded. Leftward nasal septal deviation. Mastoids are pne umatized. IMPRESSION: 1. Moderate sinusitis. Reviewed, dictated and finalized at location A. RAL CONTROL ROOM OPERATOR IMPRESSION: 1. Moderate sinusitis.
--- NOTE | ~2023-08-30 | CT_ITS ---
EXAMINATION: CTA chest PE abdomen pel DATE: 08/31/2023 06:50 ETHYLENE OXIDE PANELBOARD OPERATOR INDICATION: Shortness of breath, tachycardia. Positive d-dimer. TECHNIQUE: Computed tomographic angiography (CTA) of the chest, abdomen, and pelvis was performed wit hout and with 100 mL Omnipaque-350 intravenous contrast. The dose-length product was 2469.96 mGy-cm. Maximum intensity projection 3D-reconstructions of the aorta and other arteries were constructed by christos fleming technologist on a separate workstation. COMPARISON: None. FINDINGS: CHEST CTA: No large central pulmonary embolism. No evidence for aortic aneurysm or dissection. No significant pl eural or pericardial effusion. No thoracic lymphadenopathy. Heart size normal. No focal airspace dise ase. No endobronchial lesions. Small hiatal hernia. ABDOMEN AND PELVIS CTA: Fatty infiltration of the liver. Status post cholecystectomy. The spleen, pancreas, adrenal glands an d kidneys are unremarkable. Nonobstructive bowel gas pattern. No free air or free fluid. No lymphaden opathy. No acute osseous abnormality. IMPRESSION: 1. No acute abnormality of the chest, abdomen or pelvis. Reviewed, dictated and finalized at location A. LENE OXIDE PANELBOARD OPERATOR
[2023-08-30 18:28] VITALS: BP 119/86; PULSE 130; RESP 20; TEMP 36.7; O2SAT 100
--- NOTE | 2023-08-30 18:32 | ECG_ITS ---
Measurements Intervals Mobile Rate: 139 P: 40 MA: 132 QRS: 35 QRSD: 89 T: 35 QT: 329 QTc: 502 Interpretive Statements SINUS TACHYCARDIA NONSPECIFIC ST & T-WAVE ABNORMALITY ABNORMAL RHYTHM ECG NO PREVIOUS ECG AVAILABLE FOR COMPARISON Electronically Signed On 08-31-2023 9:00:30 [employer] by Sivakumar Steen M.D.
[2023-08-30 18:38] VITALS: PULSE 145
[2023-08-30 18:55] LABS: Immature Reticulocyte Fraction 19.4 % (3.0-15.9); Reticulocyte Hemoglobin Conten 35.3 pg (28.2-35.7); Reticulocyte Percent 2.01 % (0.7-4.3); Reticulocytes Absolute 0.05 M/mm3 (0.02-0.1)
[2023-08-30 18:57] LABS: Hematocrit 25.1 % (37.0-47.0); Hemoglobin 8.7 g/dL (12.0-15.0); Immature Platelet Fraction Pct 11.7 % (0.9-11.2); Mean Corpuscular HGB Conc 34.7 g/dl (32-36); Mean Corpuscular Hemoglobin 32.8 pg (26-34); Mean Corpuscular Volume 94.7 fl (80-100); Mean Platelet Volume 9.5 fl (7.4-10.4); Red Blood Count 2.65 M/mm3 (4.2-5.4); Red Cell Distribution Width 16.1 % (11.5-14.5); White Blood Count 3.5 K/mm3 (4.5-10.0)
--- NOTE | 2023-08-30 19:01 | PM.IMHP ---
H&P: HPI History of Present Illness Date/Time: 08/30/23 19:15 Chief Complaint: Pancytopenia. Narrative: This is a very pleasant with no significant medical history 38-year-old female who has been directly admitted to the medical floor from the emergency department at the [facility] for evaluation after she was found to have pancytopenia after presenting with low-grade fever, sore throat, nausea, and vomiting. The patient provides the following history. She has not been feeling well for approximately 4 days with symptoms to include low-grade fever, sore and swollen throat, weakness, body aches, nausea, and a couple episodes of vomiting and diarrhea. She has a cough which is really productive of clear phlegm and she reports dyspnea on exertion and wheezing as well. Her heart has been racing, mainly with activity. She has been taking DayQuil, NyQuil, and ibuprofen for her symptoms. T-max was 102.3? F. 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 Workup at the outside facility was significant for a WBC count of 3.1 (manual differential includes 16 neutrophils, 59 lymphocytes (some abnormal limbs were noted), RBC count 2.64, hemoglobin 9.0, hematocrit 29.4, platelets 26, ESR greater than 140, D-dimer 2.20, sodium 131, potassium 3.3, chloride 94, lactic acid 1.2. Grand screen was negative. She also tested negative for influenza, RSV, and COVID. ED physician spoke with Dr. Martinez who recommended transferring the patient to [place] for hematology evaluation. She was given a dose of Augmentin for pharyngitis. At the time my evaluation she is sitting in a chair at the side of the bed. She continues to feel poorly and does not feel better. No nuchal rigidity. She denies shortness of breath at rest and she does not have any difficulties swallowing or managing her secretions. She has swollen lymph nodes under her jaw but has not noticed any other lymphadenopathy. Weight has remained stable. She denies rash and joint swelling. She denies recent travel. No personal or family history of autoimmune disease or malignancy. She has occasional nose bleeds which is not new. She has not noticed any significant bruising or bleeding the last few days. Review of Systems Review of Systems: Twelve systems were reviewed and are negative except for as per HPI. [facility] Past Medical History Medical History Renal calculi Surgical History Surgical History History of section History of cholecystectomy Family History Family History Mother Family history non-contributory Social History Social History (Updated 08/31/23 @ 14:48 by Arlene Brandon PA-C) Social History: Surrogate medical decision maker: French Watson, friend. Code status: Full code. Smoking status: Former smoker Tobacco type: cigarettes Smoking end date: 08/15/11 Alcohol intake: never Lack of Transportation: No Lack of Food: Sometimes True Current Housing: I Have Housing Concerned About Future Housing: No Difficulty Paying Gas/Electric Bills: No Difficulty Paying for Meds: No Currently Unemployed: No Education: Associate Degree Difficulty w/ Childcare or Family Care: No Additional living arrangements comments: Lives with daughter. Spiritual care concerns: No Meds Home Medications and Allergies Home Medications Medication Instructions Recorded Confirmed Type No Home Medications 07/08/23 08/31/23 History Allergies Allergy/AdvReac Type Severity Reaction Status Date / Time No Known Allergies Allergy Verified 08/30/23 12:40 Vital Signs Vital Signs - 24 hr 08/30/23 18:28 08/30/23 18:38 Temperature 98.1 F Pulse Rate 130 H 145 H Respiratory Rate 20 Blood Pressure 119/86 Pulse Oximetry
[2023-08-30 19:12] LABS: Iron 81 ug/dL (37-170)
[2023-08-30 19:13] LABS: Lactic Acid Reflex 1.2 mmol/L (0.7-2.0)
[2023-08-30 19:19] LABS: Lactate Dehydrogenase 446 U/L (120-246); Magnesium 1.9 mg/dL (1.6-2.3)
[2023-08-30 19:21] LABS: Percent Iron Saturation 39 % (20-50)
[2023-08-30 19:23] LABS: Troponin I < 0.012 ng/mL (0.000-0.034)
[2023-08-30 19:24] LABS: CRP 25.4 mg/dL (<1.0)
[2023-08-30 19:41] LABS: Platelet Count Result 25 k/mm3 (150-375)
[2023-08-30 19:43] LABS: Thyroid Stimulating Hormone Reflex 0.794 uIU/mL (0.465-4.68)
[2023-08-30 19:52] LABS: Band Neutrophils Percent 1 % (0-6); Monocytes Absolute Manual 0.87 K/mm3 (0.1-0.90); Monocytes Percent Manual 25 % (3-9); Neutrophils Absolute Manual 0.45 K/mm3 (1.7-7.2); Neutrophils Percent Manual 12 % (46-73); Total Cells Counted 100
[2023-08-30 19:53] LABS: Anisocytosis 1+ (NORMAL); Atypical Lymphocytes Present; Lymphocytes Absolute Manual 2.17 K/mm3 (1.1-4.5); Lymphocytes Percent Manual 62 % (18-44); Platelet Estimate Decreased (Adequate); Schistocytes None Seen (NORMAL)
[2023-08-30 19:55] LABS: Erythrocyte Sedimentation Rate > 140 mm/hr (0-20)
[2023-08-30 20:00] VITALS: BP 130/76; PULSE 143; PULSE 63; RESP 20; TEMP 37.3; O2SAT 96
[2023-08-30 20:17] LABS: Folic Acid 10.2 ng/mL (2.76->20)
[2023-08-30 22:11] LABS: Anion Gap 10 mmol/L (8-16); Blood Urea Nitrogen 8 mg/dL (7-17); Calcium 8.8 mg/dL (8.4-10.2); Carbon Dioxide 24 mmol/L (22-30); Chloride 98 mmol/L (98-107); Estimated Glomerular Filt Rate > 60; Glucose 129 mg/dL (65-110); Potassium 3.3 mmol/L (3.4-5.0); Sodium 132 mmol/L (137-145)
[2023-08-30 22:16] LABS: Pregnancy On Board Control Positive; Urine Pregnancy Test Negative
[2023-08-31] VITALS (12 sets, daily range): BP systolic 108–137; BP diastolic 60–84; PULSE 103–141; RESP 16–20; TEMP 36–37.3; O2SAT 97–100
[2023-08-31 00:42] LABS: INR 1.1; Prothrombin Time 14.2 Seconds (11.1-14.7)
[2023-08-31 00:43] LABS: Partial Thromboplastin Time 36.3 SECONDS (22.3-36.8)
[2023-08-31] MEDS: SODIUM CHLORIDE 0.9% IV 1,000 ML 100 ML IV CONT (01:15)
[2023-08-31] MEDS: PIPERACILLN/TAZ 3.375GM/NS50ML 3.375 GM/50 ML BAG IVPB ×4 (01:15→17:43)
[2023-08-31] MEDS: DEXAMETHASONE SOD PHOS INJ 4 MG/ML VIAL IV PUSH (01:19)
[2023-08-31 01:32] LABS: Hepatitis B Surface Antigen Negative (Negative)
[2023-08-31 01:37] LABS: HAV RESULT Negative (Negative); Hepatitis B Core IgM Result Negative (Negative)
[2023-08-31 01:43] LABS: HIV 1/2 Ab P24 Ag Result Negative (Negative)
[2023-08-31 01:49] LABS: Hepatitis C Virus Antibody Negative (Negative)
[2023-08-31] MEDS: KCL 20 MEQ/SW 100 ML 100 ML 50 MEQ IVPB (01:55)
[2023-08-31] MEDS: VANCOMYCIN 1,500 MG/NS 500 ML 1,500 MG/500 ML BAG 250 MG IVPB (02:17)
[2023-08-31 06:39] LABS: Anion Gap 7 mmol/L (8-16); Blood Urea Nitrogen 5 mg/dL (7-17); Calcium 8.4 mg/dL (8.4-10.2); Carbon Dioxide 25 mmol/L (22-30); Chloride 102 mmol/L (98-107); Estimated CRCL calculation 160 ml/min; Estimated Glomerular Filt Rate > 60; Glucose 152 mg/dL (65-110); Potassium 3.7 mmol/L (3.4-5.0); Sodium 134 mmol/L (137-145)
--- NOTE | 2023-08-31 10:41 | PM.IMPN ---
Progress Note: A&P Assessment and Plan (1) Pancytopenia: Code(s): D61.818 - Other pancytopenia Status: Inactive Assessment and Plan: 08/31/2023: RBC 2.41, WBC 2.3, platelet count 20 Hematology consulted Patient given 2 units of platelets today (2) Pharyngitis: Code(s): J02.9 - Acute pharyngitis, unspecified Status: Acute Assessment and Plan: 08/31/2023: Patient talks with a hot potato throat Cervical lymphadenopathy CT scan of the soft tissues of the neck showed enlarged tonsils and adenoids consistent with tonsillitis, no discrete abscess was seen, enlarged cervical lymph nodes, likely reactive, mild sinusitis. Patient reports a sore throat, throat culture is pending Currently on Zosyn and vancomycin Patient given a 1 time dose of dexamethasone 4 mg IV push Order placed for throat lozenges (3) Elevated d-dimer: Code(s): R79.89 - Other specified abnormal findings of blood chemistry Status: Acute Assessment and Plan: 08/31/2023: D-dimer 2.20, heart rate elevated to 154 CTA of the chest/abdomen/pelvis was negative for pulmonary embolism, and no acute abnormality of the chest, abdomen, or pelvis. (4) Dehydration: Code(s): E86.0 - Dehydration Status: Acute Assessment and Plan: 08/31/2023: Patient heart rate was initially 154 Sodium 131, chloride 94 Patient started on IV fluids, normal saline at 100 mils per hour (5) Tachycardia: Code(s): R00.0 - Tachycardia, unspecified Status: Acute Assessment and Plan: 08/31/2023: Heart rate was initially 154 Patient will continue on cardiac telemetry as she is still tachycardic Likely due to dehydration CTA of chest was negative for PE Chest x-ray negative for any cardiopulmonary disease (6) Hypokalemia: Code(s): E87.6 - Hypokalemia Status: Acute Assessment and Plan: 08/31/2023: Potassium initially 3.3 she received some potassium in the emergency room and is now 3.7 Will continue to monitor labs Time Spent With Patient Time with patient: Greater than 35 minutes Subjective Date/time seen: 08/31/23 10:41 Interval history: This is a 38 year old female who presents to the hospital on 08/30/23 with complaints ofWork up in the hospital includes a soft tissue neck CT which shown enlarged tonsils and adenoids, consistent with tonsillitis, no abscess was identified, enlarged cervical lymph nodes, mild sinusitis. CXR was negative. CTA of the chest/abdomen/pelvis was also negative. EKG shown ST with a rate of 139. HR was reported as 154 as the highest. She was placed on continuous cardiac monitoring. Labs initially revealed a D-dimer 2.20, WBC 3.1, RBC 2.64, plt 26, Na+ 132, K+ 3.3, BG 129, iron 81, TIBC 210, Ferritin 542, vitamin B12 848, folate 10.2, TSH 0.794, Lipase 34, Lactate dehydrogenase 446, CRP 25.4, liver enzymes were normal, mag 1.9, Lactic acid 1.2. Ua revealed specific gravity 1.025, 3+ protein, 3+ ketones, 2+ blood, 1+ bili, urine WBC 6-10, moderate squamous epithelial cells, 1+ bacteria. Blood and throat cultures were obtained. Patient was started on IV fluids, given 20 KCL, and started on Vancomycin and Zosyn. Hematology was consulted for pancytopenia. On examination today patient is alert and oriented x3, lying in the bed. She denies any nausea, vomiting, diarrhea, abdominal pain, fever, chills, shortness of breath, or chest pain. She does sound congested and reports a very sore throat. She does have cervical lymphadenopathy. She denies any recent sick contacts. She denies any past medical history and is not on any medications at this time. Labs today reveal WBC 2.3, RBC 2.41, Hgb 8.1, Hct 23.1, RDW 16.3, Plt 20, Immature platelet fraction 12.5, Na+ 134, K+ 3.7, BG 129-152. Plan to give patient 2 units of platelets today.Throat culture pending. Hematology consulted and will likely see her tomorrow. Continue IV antibiotics. Review of Systems Review o
[2023-08-31 10:56] LABS: Hematocrit 23.1 % (37.0-47.0); Hemoglobin 8.1 g/dL (12.0-15.0); Immature Platelet Fraction Pct 12.5 % (0.9-11.2); Mean Corpuscular HGB Conc 35.1 g/dl (32-36); Mean Corpuscular Hemoglobin 33.6 pg (26-34); Mean Corpuscular Volume 95.9 fl (80-100); Mean Platelet Volume 11.4 fl (7.4-10.4); Red Blood Count 2.41 M/mm3 (4.2-5.4); Red Cell Distribution Width 16.3 % (11.5-14.5); White Blood Count 2.3 K/mm3 (4.5-10.0)
[2023-08-31 11:29] LABS: Platelet Count Result 20 k/mm3 (150-375)
[2023-08-31 12:44] LABS: Band Neutrophils Percent 2 % (0-6); Basophils Absolute Manual 0.02 K/mm3 (0.0-0.1); Basophils Percent Manual 1 % (0-1); Lymphocytes Absolute Manual 1.58 K/mm3 (1.1-4.5); Monocytes Absolute Manual 0.06 K/mm3 (0.1-0.90); Monocytes Percent Manual 3 % (3-9); Neutrophils Absolute Manual 0.62 K/mm3 (1.7-7.2); Neutrophils Percent Manual 25 % (46-73); Platelet Estimate Decreased (Adequate); Schistocytes None Seen (NORMAL); Total Cells Counted 100
[2023-08-31 12:45] LABS: Anisocytosis 1+ (NORMAL)
[2023-08-31 12:46] LABS: Atypical Lymphocytes Present
[2023-08-31] MEDS: VANCOMYCIN 1,500 MG/NS 500 ML 1,500 MG/500 ML BAG 175 MG IVPB (13:51)
[2023-08-31] MEDS: BENZOCAINE/MENTHOL (*BKC) 18 EA LOZENGE 1 LOZENGE PO (13:57)
[2023-08-31] MEDS: ACETAMINOPHEN 325 MG TABLET 650 MG PO (13:58)
[2023-08-31] MEDS: SODIUM CHLORIDE 0.9% IV 250 ML 30 ML IV CONT (22:14)
[2023-09-01] VITALS (7 sets, daily range): BP systolic 111–128; BP diastolic 65–87; PULSE 106–137; RESP 16–20; TEMP 35.9–37; O2SAT 98–100
[2023-09-01] MEDS: PIPERACILLN/TAZ 3.375GM/NS50ML 3.375 GM/50 ML BAG IVPB ×5 (00:26→23:38)
[2023-09-01] MEDS: VANCOMYCIN 1,500 MG/NS 500 ML 1,500 MG/500 ML BAG 250 MG IVPB (02:48)
[2023-09-01] MEDS: SODIUM CHLORIDE 0.9% IV 1,000 ML 100 ML IV CONT (06:08)
[2023-09-01 06:50] LABS: Hematocrit 21.8 % (37.0-47.0); Hemoglobin 7.5 g/dL (12.0-15.0); Immature Platelet Fraction Pct 2.9 % (0.9-11.2); Mean Corpuscular HGB Conc 34.4 g/dl (32-36); Mean Corpuscular Hemoglobin 33.2 pg (26-34); Mean Corpuscular Volume 96.5 fl (80-100); Mean Platelet Volume 9.7 fl (7.4-10.4); Platelet Count Result 78 k/mm3 (150-375); Red Blood Count 2.26 M/mm3 (4.2-5.4); Red Cell Distribution Width 16.3 % (11.5-14.5); White Blood Count 2.6 K/mm3 (4.5-10.0)
[2023-09-01 07:08] LABS: Potassium 3.3 mmol/L (3.4-5.0)
[2023-09-01 07:13] LABS: Alanine Aminotransferase 21 U/L (6-35); Albumin Level 3.3 g/dL (3.5-5.1); Alkaline Phosphatase 70 U/L (38-126); Anion Gap 4 mmol/L (8-16); Aspartate Amino Transferase 22 U/L (14-36); Bilirubin,Total 0.3 mg/dL (0.2-1.3); Blood Urea Nitrogen 7 mg/dL (7-17); Calcium 8.6 mg/dL (8.4-10.2); Carbon Dioxide 28 mmol/L (22-30); Chloride 108 mmol/L (98-107); Estimated CRCL calculation 137 ml/min; Estimated Glomerular Filt Rate > 60; Glucose 99 mg/dL (65-110); Lactate Dehydrogenase 348 U/L (120-246); Sodium 140 mmol/L (137-145)
[2023-09-01 07:22] LABS: CRP 17.6 mg/dL (<1.0)
[2023-09-01 08:22] LABS: Erythrocyte Sedimentation Rate > 140 mm/hr (0-20)
--- NOTE | 2023-09-01 09:38 | PDONCCN ---
HPI - Date of Consult Date/Time: 09/01/23 13:03 <MichelleHanselWin - 09/01/23 13:06> 09/01/23 09:38 <Indira Lazo - 09/01/23 09:38> Requesting Physician: Georgie Sheehan DO <MichelleHanselWin - 09/01/23 13:06> Georgie Sheehan DO <Indira Lazo - 09/01/23 09:38> Primary Care Provider: Josefa Hendrickson RN <MichelleHansel GroverWin - 09/01/23 13:06> Josefa Hendrickson RN <Indira Lazo - 09/01/23 09:38> - Consult Narrative Reason for consult: Pancytopenia <Indira Lazo - 09/01/23 09:38> Narrative: Sarah Mckeon is a 38 year old female <Hansel MartinezWin - 09/01/23 13:06> Sarah Mckeon is a 38 year old female with no past medical history that was admitted to [facility] for shortness of breath, difficulty swallowing, was having fevers at home up to 102.3. She was found to be pancytopenic. She states she has not felt well since last Friday with exhaustion, sore throat, fevers, vomiting/diarrhea. She is also having a fast heart rate with activity. 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 She has COVID a few weeks ago as well. She denies weight loss/gain, frequent infections, bleeding in her stool. Endorses shortness of breath, fatigue, fevers, night sweats, had a COVID infection a few weeks ago. CT scan of neck revealed tonsillitis and enlarged cervical lymph nodes. CTA PE revealed no pulmonary embolism and no lymphadenopathy. Most recent labs are notable wBC 2.6, Hgb 7.5, Plt 78. Neut % 8, Lymph % 85. She is status post 2 units of platelets. <Indira Lazo - 09/01/23 11:48> Review of Systems - Constitutional Reports fatigue, Reports fever(s), Reports lack of energy <Indira Lazo 09/01/23 09:53> - ENT Reports sore throat <Indira Lazo 09/01/23 09:53> - Cardiovascular Reports fast heart rate <Indira Lazo 09/01/23 09:53> - Respiratory Reports dyspnea on exertion <Indira Lazo 09/01/23 09:53> - Gastrointestinal Reports diarrhea, Reports vomiting <Indira Lazo 09/01/23 09:53> - Neurologic Reports system reviewed and no additional complaints, except as documented <CliftonIndira 09/01/23 09:38> [facility] Medical History: Medical History (Last Reviewed 08/31/23 @ 14:47 by Arlene Brandon PA-C) Renal calculi <Hansel Martinez M. - 09/01/23 13:06> Medical History (Last Reviewed 08/31/23 @ 14:47 by Arlene Brandon PA-C) Renal calculi <CliftonIndira 09/01/23 09:38> Surgical History: Surgical History (Last Reviewed 08/31/23 @ 14:47 by Arlene Brandon PA-C) History of section History of cholecystectomy <Hansel Martinez M. - 09/01/23 13:06> Surgical History (Last Reviewed 08/31/23 @ 14:47 by Arlene Brandon PA-C) History of section History of cholecystectomy <Indira Lazo 09/01/23 09:38> Family History: Family History (Last Reviewed 08/31/23 @ 14:47 by Arlene Brandon PA-C) Mother Family history non-contributory <Hansel Martinez M. - 09/01/23 13:06> Family History (Last Reviewed 08/31/23 @ 14:47 by Arlene Brandon PA-C) Mother Family history non-contributory <Indira Lazo 09/01/23 09:38> - Social History Social History: Social History (Last Updated 08/31/23 @ 14:48 by Arlene Brandon PA-C) Alcohol Use: Alcohol intake: never Others: Spiritual care concerns: No Smoking Status: Smoking status: Former smoker Tobacco type: cigarettes Smoking end date: 08/15/11 Social Determinants of Health: Has the Lack of Transportation Kept You From Medical Appointments or From Getting Medications?: No Within the Past 12 Months, Were You Worried Whether Your Food Would Run Out Before You Got Money to Buy More?: Sometimes True What is Your Housing Situation Today?: I H
[2023-09-01] MEDS: POTASSIUM CHLORIDE 20 MEQ ER TABLET 40 MEQ PO (09:56)
[2023-09-01 11:33] LABS: Band Neutrophils Percent 1 % (0-6); Lymphocytes Absolute Manual 2.21 K/mm3 (1.1-4.5); Monocytes Absolute Manual 0.15 K/mm3 (0.1-0.90); Monocytes Percent Manual 6 % (3-9); Neutrophils Absolute Manual 0.23 K/mm3 (1.7-7.2); Neutrophils Percent Manual 8 % (46-73); Platelet Estimate Decreased (Adequate); Total Cells Counted 100
[2023-09-01 11:34] LABS: Schistocytes None Seen (NORMAL)
[2023-09-01] MEDS: ACETAMINOPHEN 325 MG TABLET 650 MG PO ×2 (12:02→23:39)
[2023-09-01 14:20] LABS: Vancomycin Trough 7.8 ug/mL (10.0-20.0)
[2023-09-01] MEDS: VANCOMYCIN 2,000 MG/NS 500 ML 2,000 MG/500 ML BAG 250 MG IVPB (16:55)
--- NOTE | 2023-09-01 17:31 | P.PNIM_ITS ---
Progress Note: A&P Assessment and Plan (1) Pancytopenia: Code(s): D61.818 - Other pancytopenia Status: Inactive Assessment and Plan: 08/31/2023: * RBC 2.41, WBC 2.3, platelet count 20 * Hematology consulted * Patient given 2 units of platelets today 09/01/23: * Peripheral smear of blood shown some atypical lymphocytes nucleoli suggestive of blasts verses a reactive lymphocytes. * C-reactive protein 17.6 today, and D-dimer elevated 2.2 * RBC2.26, WBC 2.6, Plt 78 post platelet pheresis yesterday * Hematology/Oncology following * Plan for bone marrow biopsy tomorrow. * ARLENE, RPR, histoplasma pending * ESR >140 * TSH normal 0.780 * Lactate Dehydrogenase 348 * She is negative for HIV and Hepatitis panel negative. * Monoscreen negative * Group A strep PCR negative * Respiratory panel negative for Influenza, RSV, and COVID (2) Pharyngitis: Code(s): J02.9 - Acute pharyngitis, unspecified Status: Acute Assessment and Plan: 08/31/2023: * Patient talks with a hot potato throat * Cervical lymphadenopathy * CT scan of the soft tissues of the neck showed enlarged tonsils and adenoids consistent with tonsillitis, no discrete abscess was seen, enlarged cervical lymph nodes, likely reactive, mild sinusitis. * Patient reports a sore throat, throat culture is pending * Currently on Zosyn and vancomycin * Patient given a 1 time dose of dexamethasone 4 mg IV push * Order placed for throat lozenges 09/01/23: * Cervical lymphadenopathy unchanged * Patient complaining of sinus pressure and inability to breath through her nose. * CT of the sinuses shown moderate sinusitis * Patient still reports a sore throat * Continue with IV antibiotics until throat culture results * Throat culture is still pending * Blood cultures showing no growth to date * No evidence of left shift * Will check a procalcitonin tomorrow (3) Elevated d-dimer: Code(s): R79.89 - Other specified abnormal findings of blood chemistry Status: Acute Assessment and Plan: 08/31/2023: * D-dimer 2.20, heart rate elevated to 154 * CTA of the chest/abdomen/pelvis was negative for pulmonary embolism, and no acute abnormality of the chest, abdomen, or pelvis. 09/01/23: * No change, see above plan of care (4) Dehydration: Code(s): E86.0 - Dehydration Status: Acute Assessment and Plan: 08/31/2023: * Patient heart rate was initially 154 * Sodium 131, chloride 94 * Patient started on IV fluids, normal saline at 100 mils per hour 09/01/23: * Na+ 140, Chloride 108 * Resolved * Dc IVF (5) Tachycardia: Code(s): R00.0 - Tachycardia, unspecified Status: Acute Assessment and Plan: 08/31/2023: * Heart rate was initially 154 * Patient will continue on cardiac telemetry as she is still tachycardic * Likely due to dehydration * CTA of chest was negative for PE * Chest x-ray negative for any cardiopulmonary disease 09/01/23: * Remains tachycardic 108-121 * Continue cardiac monitoring (6) Hypokalemia: Code(s): E87.6 - Hypokalemia Status: Acute Assessment and Plan: 08/31/2023: * Potassium initially 3.3 she received some potassium in the emergency room and is now 3.7 * Will continue to monitor labs 09/01/23: * Potassium 3.3 today, 40 meq of KCL given * Will continue to trend. Time Spent With Patient Time with patient: Greater than 35 minutes Subjective Date/time seen: 09/01/23 17:31 Interval history:
--- NOTE | 2023-09-01 17:31 | PM.IMPN ---
Progress Note: A&P Assessment and Plan (1) Pancytopenia: Code(s): D61.818 - Other pancytopenia Status: Inactive Assessment and Plan: 08/31/2023: RBC 2.41, WBC 2.3, platelet count 20 Hematology consulted Patient given 2 units of platelets today 09/01/23: Peripheral smear of blood shown some atypical lymphocytes nucleoli suggestive of blasts verses a reactive lymphocytes. C-reactive protein 17.6 today, and D-dimer elevated 2.2 RBC2.26, WBC 2.6, Plt 78 post platelet pheresis yesterday Hematology/Oncology following Plan for bone marrow biopsy tomorrow. ARLENE, RPR, histoplasma pending ESR >140 TSH normal 0.780 Lactate Dehydrogenase 348 She is negative for HIV and Hepatitis panel negative. Monoscreen negative Group A strep PCR negative Respiratory panel negative for Influenza, RSV, and COVID (2) Pharyngitis: Code(s): J02.9 - Acute pharyngitis, unspecified Status: Acute Assessment and Plan: 08/31/2023: Patient talks with a hot potato throat Cervical lymphadenopathy CT scan of the soft tissues of the neck showed enlarged tonsils and adenoids consistent with tonsillitis, no discrete abscess was seen, enlarged cervical lymph nodes, likely reactive, mild sinusitis. Patient reports a sore throat, throat culture is pending Currently on Zosyn and vancomycin Patient given a 1 time dose of dexamethasone 4 mg IV push Order placed for throat lozenges 09/01/23: Cervical lymphadenopathy unchanged Patient complaining of sinus pressure and inability to breath through her nose. CT of the sinuses shown moderate sinusitis Patient still reports a sore throat Continue with IV antibiotics until throat culture results Throat culture is still pending Blood cultures showing no growth to date No evidence of left shift Will check a procalcitonin tomorrow (3) Elevated d-dimer: Code(s): R79.89 - Other specified abnormal findings of blood chemistry Status: Acute Assessment and Plan: 08/31/2023: D-dimer 2.20, heart rate elevated to 154 CTA of the chest/abdomen/pelvis was negative for pulmonary embolism, and no acute abnormality of the chest, abdomen, or pelvis. 09/01/23: No change, see above plan of care (4) Dehydration: Code(s): E86.0 - Dehydration Status: Acute Assessment and Plan: 08/31/2023: Patient heart rate was initially 154 Sodium 131, chloride 94 Patient started on IV fluids, normal saline at 100 mils per hour 09/01/23: Na+ 140, Chloride 108 Resolved Dc IVF (5) Tachycardia: Code(s): R00.0 - Tachycardia, unspecified Status: Acute Assessment and Plan: 08/31/2023: Heart rate was initially 154 Patient will continue on cardiac telemetry as she is still tachycardic Likely due to dehydration CTA of chest was negative for PE Chest x-ray negative for any cardiopulmonary disease 09/01/23: Remains tachycardic 108-121 Continue cardiac monitoring (6) Hypokalemia: Code(s): E87.6 - Hypokalemia Status: Acute Assessment and Plan: 08/31/2023: Potassium initially 3.3 she received some potassium in the emergency room and is now 3.7 Will continue to monitor labs 09/01/23: Potassium 3.3 today, 40 meq of KCL given Will continue to trend. Time Spent With Patient Time with patient: Greater than 35 minutes Subjective Date/time seen: 09/01/23 17:31 Interval history: 08/31/23: This is a 38 year old female who presents to the hospital on 08/30/23 with complaints ofWork up in the hospital includes a soft tissue neck CT which shown enlarged tonsils and adenoids, consistent with tonsillitis, no abscess was identified, enlarged cervical lymph nodes, mild sinusitis. CXR was negative. CTA of the chest/abdomen/pelvis was also negative. EKG shown ST with a rate of 139. HR was reported as 154 as the highest. She was placed on continuous cardiac monitoring. Labs initially revealed a D-dimer 2.2
[2023-09-02] VITALS (13 sets, daily range): BP systolic 103–132; BP diastolic 61–87; PULSE 87–140; RESP 16–18; TEMP 36–36.9; O2SAT 98–100
[2023-09-02] MEDS: VANCOMYCIN 2,000 MG/NS 500 ML 2,000 MG/500 ML BAG 250 MG IVPB (04:00)
[2023-09-02] MEDS: PIPERACILLN/TAZ 3.375GM/NS50ML 3.375 GM/50 ML BAG IVPB (06:10)
[2023-09-02 06:59] LABS: Immature Platelet Fraction Pct 3.1 % (0.9-11.2); Mean Corpuscular HGB Conc 33.3 g/dl (32-36); Mean Corpuscular Hemoglobin 33.7 pg (26-34); Platelet Count Result 52 k/mm3 (150-375); Red Blood Count 2.05 M/mm3 (4.2-5.4); Red Cell Distribution Width 16.5 % (11.5-14.5)
[2023-09-02 07:10] LABS: Alanine Aminotransferase 19 U/L (6-35); Albumin Level 3.3 g/dL (3.5-5.1); Alkaline Phosphatase 64 U/L (38-126); Anion Gap 3 mmol/L (8-16); Aspartate Amino Transferase 24 U/L (14-36); Bilirubin,Total 0.3 mg/dL (0.2-1.3); Blood Urea Nitrogen 7 mg/dL (7-17); CRP 8.1 mg/dL (<1.0); Calcium 8.3 mg/dL (8.4-10.2); Carbon Dioxide 27 mmol/L (22-30); Chloride 109 mmol/L (98-107); Estimated CRCL calculation 119 ml/min; Estimated Glomerular Filt Rate > 60; Glucose 93 mg/dL (65-110); Potassium 3.8 mmol/L (3.4-5.0); Sodium 139 mmol/L (137-145)
[2023-09-02 07:22] LABS: INR 1.1; Prothrombin Time 14.7 Seconds (11.1-14.7)
[2023-09-02 07:38] LABS: Hematocrit 20.7 % (37.0-47.0); Hemoglobin 6.9 g/dL (12.0-15.0); White Blood Count 1.7 K/mm3 (4.5-10.0)
[2023-09-02 07:51] LABS: Procalcitonin 0.4 ng/mL
[2023-09-02 08:00] LABS: Basophils Absolute Manual 0.01 K/mm3 (0.0-0.1); Basophils Percent Manual 1 % (0-1); Lymphocytes Absolute Manual 1.53 K/mm3 (1.1-4.5); Monocytes Absolute Manual 0.01 K/mm3 (0.1-0.90); Monocytes Percent Manual 1 % (3-9); Neutrophils Percent Manual 8 % (46-73); Platelet Estimate Decreased (Adequate); Schistocytes None Seen (NORMAL); Total Cells Counted 100
--- NOTE | 2023-09-02 08:37 | P.PNIM_ITS ---
Progress Note: A&P Assessment and Plan (1) Pancytopenia: Code(s): D61.818 - Other pancytopenia Status: Inactive Assessment and Plan: 08/31/2023: * RBC 2.41, WBC 2.3, platelet count 20 * Hematology consulted * Patient given 2 units of platelets today 09/01/23: * Peripheral smear of blood shown some atypical lymphocytes nucleoli suggestive of blasts verses a reactive lymphocytes. * C-reactive protein 17.6 today, and D-dimer elevated 2.2 * RBC2.26, WBC 2.6, Plt 78 post platelet pheresis yesterday * Hematology/Oncology following * Plan for bone marrow biopsy tomorrow. * ARLENE, RPR, histoplasma pending * ESR >140 * TSH normal 0.780 * Lactate Dehydrogenase 348 * She is negative for HIV and Hepatitis panel negative. * Monoscreen negative * Group A strep PCR negative * Respiratory panel negative for Influenza, RSV, and COVID 09/02/23: * Plan for bone marrow biopsy today * ARLENE, RPR, and histoplasma still pending. * Hematology/Oncology following * US of abdomen showing diffuse hepatic steatosis (2) Pharyngitis: Code(s): J02.9 - Acute pharyngitis, unspecified Status: Acute Assessment and Plan: 08/31/2023: * Patient talks with a hot potato throat * Cervical lymphadenopathy * CT scan of the soft tissues of the neck showed enlarged tonsils and adenoids consistent with tonsillitis, no discrete abscess was seen, enlarged cervical lymph nodes, likely reactive, mild sinusitis. * Patient reports a sore throat, throat culture is pending * Currently on Zosyn and vancomycin * Patient given a 1 time dose of dexamethasone 4 mg IV push * Order placed for throat lozenges 09/01/23: * Cervical lymphadenopathy unchanged * Patient complaining of sinus pressure and inability to breath through her nose. * CT of the sinuses shown moderate sinusitis * Patient still reports a sore throat * Continue with IV antibiotics until throat culture results * Throat culture is still pending * Blood cultures showing no growth to date * No evidence of left shift * Will check a procalcitonin tomorrow 09/02/23: * Throat culture still pending * Blood cultures showing no growth to date * Procal 0.4 (3) Elevated d-dimer: Code(s): R79.89 - Other specified abnormal findings of blood chemistry Status: Acute Assessment and Plan: 08/31/2023: * D-dimer 2.20, heart rate elevated to 154 * CTA of the chest/abdomen/pelvis was negative for pulmonary embolism, and no acute abnormality of the chest, abdomen, or pelvis. 09/01/23: * No change, see above plan of care (4) Dehydration: Code(s): E86.0 - Dehydration Status: Acute Assessment and Plan: 08/31/2023: * Patient heart rate was initially 154 * Sodium 131, chloride 94 * Patient started on IV fluids, normal saline at 100 mils per hour 09/01/23: * Na+ 140, Chloride 108 * Resolved * Dc IVF (5) Tachycardia: Code(s): R00.0 - Tachycardia, unspecified Status: Acute Assessment and Plan: 08/31/2023: * Heart rate was initially 154 * Patient will continue on cardiac telemetry as she is still tachycardic * Likely due to dehydration * CTA of chest was negative for PE * Chest x-ray negative for any cardiopulmonary disease 09/01/23: * Remains tachycardic 108-121 * Continue cardiac monitoring 09/02/23: * HR 94-100 * Continue cardiac monitoring for now (6) Hypokalemia: Code(s): E87.6 - Hypokalemia Status: Acute Assessment and Plan: 08/31/2023: * Potassium
--- NOTE | 2023-09-02 08:37 | PM.IMPN ---
Progress Note: A&P Assessment and Plan (1) Pancytopenia: Code(s): D61.818 - Other pancytopenia Status: Inactive Assessment and Plan: 08/31/2023: RBC 2.41, WBC 2.3, platelet count 20 Hematology consulted Patient given 2 units of platelets today 09/01/23: Peripheral smear of blood shown some atypical lymphocytes nucleoli suggestive of blasts verses a reactive lymphocytes. C-reactive protein 17.6 today, and D-dimer elevated 2.2 RBC2.26, WBC 2.6, Plt 78 post platelet pheresis yesterday Hematology/Oncology following Plan for bone marrow biopsy tomorrow. ARLENE, RPR, histoplasma pending ESR >140 TSH normal 0.780 Lactate Dehydrogenase 348 She is negative for HIV and Hepatitis panel negative. Monoscreen negative Group A strep PCR negative Respiratory panel negative for Influenza, RSV, and COVID 09/02/23: Plan for bone marrow biopsy today ARLENE, RPR, and histoplasma still pending. Hematology/Oncology following US of abdomen showing diffuse hepatic steatosis (2) Pharyngitis: Code(s): J02.9 - Acute pharyngitis, unspecified Status: Acute Assessment and Plan: 08/31/2023: Patient talks with a hot potato throat Cervical lymphadenopathy CT scan of the soft tissues of the neck showed enlarged tonsils and adenoids consistent with tonsillitis, no discrete abscess was seen, enlarged cervical lymph nodes, likely reactive, mild sinusitis. Patient reports a sore throat, throat culture is pending Currently on Zosyn and vancomycin Patient given a 1 time dose of dexamethasone 4 mg IV push Order placed for throat lozenges 09/01/23: Cervical lymphadenopathy unchanged Patient complaining of sinus pressure and inability to breath through her nose. CT of the sinuses shown moderate sinusitis Patient still reports a sore throat Continue with IV antibiotics until throat culture results Throat culture is still pending Blood cultures showing no growth to date No evidence of left shift Will check a procalcitonin tomorrow 09/02/23: Throat culture still pending Blood cultures showing no growth to date Procal 0.4 (3) Elevated d-dimer: Code(s): R79.89 - Other specified abnormal findings of blood chemistry Status: Acute Assessment and Plan: 08/31/2023: D-dimer 2.20, heart rate elevated to 154 CTA of the chest/abdomen/pelvis was negative for pulmonary embolism, and no acute abnormality of the chest, abdomen, or pelvis. 09/01/23: No change, see above plan of care (4) Dehydration: Code(s): E86.0 - Dehydration Status: Acute Assessment and Plan: 08/31/2023: Patient heart rate was initially 154 Sodium 131, chloride 94 Patient started on IV fluids, normal saline at 100 mils per hour 09/01/23: Na+ 140, Chloride 108 Resolved Dc IVF (5) Tachycardia: Code(s): R00.0 - Tachycardia, unspecified Status: Acute Assessment and Plan: 08/31/2023: Heart rate was initially 154 Patient will continue on cardiac telemetry as she is still tachycardic Likely due to dehydration CTA of chest was negative for PE Chest x-ray negative for any cardiopulmonary disease 09/01/23: Remains tachycardic 108-121 Continue cardiac monitoring 09/02/23: HR 94-100 Continue cardiac monitoring for now (6) Hypokalemia: Code(s): E87.6 - Hypokalemia Status: Acute Assessment and Plan: 08/31/2023: Potassium initially 3.3 she received some potassium in the emergency room and is now 3.7 Will continue to monitor labs 09/01/23: Potassium 3.3 today, 40 meq of KCL given Will continue to trend. 09/02/23: Potassium 4.1 today, no replacement needed Continue to trend labs. Time Spent With Patient Time with patient: Greater than 35 minutes Subjective Date/time seen: 09/02/23 08:37 Interval history: 08/31/23: This is a 38 year old female who presents to the hospital on 08/30/23 with complaints ofWork up i
--- NOTE | 2023-09-02 09:54 | PC.NURSE ---
[facility] bed for [facility] Marrow Asp[facility].
--- NOTE | 2023-09-02 10:15 | WPDMODSED ---
Moderate Sedation Note-Pt Data Patient Data Diagnosis: pancytopenia Present Complaint: fatigue Procedure to be performed/Plan: bone marrow biopsy Allergies Allergy/AdvReac Type Severity Reaction Status Date / Time No Known Allergies Allergy Verified 08/30/23 12:40 Home Medications Medication Instructions Recorded Confirmed Type No Home Medications 07/08/23 08/31/23 History Current Medications: Active Medications Acetaminophen (Acetaminophen 325 Mg Tablet) 650 mg PO Q6H PRN PRN Reason: Mild Pain (1-3) or Fever Last Admin: 09/01/23 23:39 Dose: 650 mg Benzocaine (Benzocaine/Menthol (*Bkc) 18 Ea Lozenge) 1 lozenge PO PRN PRN PRN Reason: Sore Throat Last Admin: 08/31/23 13:57 Dose: 1 lozenge Piperacillin/Tazobactam/Dextrose (Zosyn 3.375 Gm/Ns 50 Ml) 3.375 gm in 50 mls @ 100 mls/hr IVPB Q6H SIOMARA Last Infusion: 09/02/23 06:41 Dose: Infused Vancomycin HCl (Vancomycin 2,000 Mg/Ns 500 Ml) 2,000 mg in 500 mls @ 250 mls/hr IVPB Q12H SIOMARA Last Infusion: 09/02/23 06:00 Dose: Infused Sodium Chloride (Normal Saline Iv) 250 mls @ 30 mls/hr IV CONT .Q8H20M STA Stop: 09/02/23 16:32 Last Admin: 09/02/23 09:41 Dose: Not Given Sodium Chloride (Normal Saline Iv) 250 mls @ 30 mls/hr IV CONT .Q8H20M STA Stop: 09/02/23 17:00 Morphine Sulfate (Morphine Sulfate (*Crx) 2 Mg/Ml Inj) 2 mg IV PUSH Q4H PRN PRN Reason: Pain Rated 7-10 Neomycin/Polymyxin/Bacitracin (Neomycin/Polymyxin/Bacitracin Ointment 15 Gm Tube) 1 applic TOPICAL PRN PRN PRN Reason: with dressing changes Sedation/Anesthesia: No previous sedation/anesthesia problems (including family history). [facility] Past Medical History Medical History Renal calculi Surgical History Surgical History History of section History of cholecystectomy Family History Family History Mother Family history non-contributory Social History Social History (Updated 08/31/23 @ 14:48 by Arlene Brandon PA-C) Social History: Surrogate medical decision maker: French Watson, friend. Code status: Full code. Smoking status: Former smoker Tobacco type: cigarettes Smoking end date: 08/15/11 Alcohol intake: never Do You Feel Safe in your Home?: Yes Lack of Transportation: No Lack of Food: Sometimes True Current Housing: I Have Housing Concerned About Future Housing: No Difficulty Paying Gas/Electric Bills: No Difficulty Paying for Meds: No Currently Unemployed: No Education: Associate Degree Difficulty w/ Childcare or Family Care: No Additional living arrangements comments: Lives with daughter. Spiritual care concerns: No Mod Sed Physical Exam Physical Exam Pre Procedural Exam: Normal: Appearance, Throat, Lungs, Heart Rate and Heart Rhythm Hours since solid foods: 10 Hours since liquid intake: 10 Mallampati Classification: class III Internal Medicine - PN: Obj Da Vital Signs Vital Signs: Vital Signs - 24 hr 09/01/23 16:00 09/01/23 12:00 09/01/23 16:00 Temperature 96.6 F L Pulse Rate 108 H 121 H 110 H Respiratory Rate 20 Blood Pressure 111/83 Pulse Oximetry 99 Oxygen Delivery 09/01/23 20:00 09/01/23 20:00 09/02/23 00:00 Temperature 97.4 F L 98.5 F Pulse Rate 108 H 110 H Respiratory Rate 18 18 Blood Pressure 128/87 122/72 Pulse Oximetry 100 98 Oxygen Delivery Room Air 09/01/23 20:00 09/02/23 00:00 09/02/23 04:00 Temperature Pulse Rate 137 H 116 H 117 H Respiratory Rate Blood Pressure Pulse Oximetry Oxygen Delivery 09/02/23 04:00 09/02/23 08:00 Temperature 97.8 F 97.6 F Pulse Rate 94 100 Respiratory Rate 18 18 Blood Pressure 118/82 110/64 Pulse Oximetry 100 100 Oxygen Delivery Intake/Output Intake/Output: Intake & Output 08/30/23 08/31/23 09/01/23
--- NOTE | 2023-09-02 10:57 | PC.NURSE ---
Telephone report received from CARO Mata RN.
--- NOTE | 2023-09-02 11:03 | PC.NURSE ---
Returned to room per hospital bed from [facility]. Positioned supine for 30 minutes as ordered.
[2023-09-02] MEDS: SODIUM CHLORIDE 0.9% IV 250 ML 30 ML IV CONT (11:31)
[2023-09-02] MEDS: TUBING, BLOOD PLUM PUMP TUBING 1 EACH XX (11:31)
[2023-09-02 14:37] LABS: Rapid Plasma Reagin Non-Reactive (NonReactive)
[2023-09-02] MEDS: cefTRIAXone 2 GM/NS 100 ML 2 GM/100 ML BAG IVPB (14:46)
[2023-09-02 15:19] LABS: Hematocrit 24.5 % (37.0-47.0); Hemoglobin 8.1 g/dL (12.0-15.0)
[2023-09-03] VITALS: BP 129/84; PULSE 106; PULSE 93; RESP 18; TEMP 36.6; O2SAT 99
[2023-09-03] MEDS: ACETAMINOPHEN 325 MG TABLET 650 MG PO (01:02)
[2023-09-03 04:00] VITALS: BP 103/72; PULSE 88; PULSE 95; RESP 16; TEMP 36.5; O2SAT 98
[2023-09-03 06:21] LABS: Eosinophils Percent Auto 0.4 % (0-4.4); Hematocrit 24.3 % (37.0-47.0); Hemoglobin 8.3 g/dL (12.0-15.0); Immature Granulocyte Absolute 0.01 K/mm3 (0.00-0.031); Immature Granulocyte Percent A 0.4 % (0-0.5); Immature Platelet Fraction Pct 3.1 % (0.9-11.2); Lymphocytes Absolute Auto 1.72 K/mm3 (0.9-3.2); Lymphocytes Percent Auto 76.8 % (18.3-44.2); Mean Corpuscular HGB Conc 34.2 g/dl (32-36); Mean Corpuscular Hemoglobin 32.7 pg (26-34); Mean Corpuscular Volume 95.7 fl (80-100); Monocytes Absolute Auto 0.4 K/mm3 (0.1-0.6); Monocytes Percent Auto 17.4 % (2.6-8.5); Neutrophils Absolute Auto 0.1 K/mm3 (1.3-6.7); Platelet Count Result 42 k/mm3 (150-375); Red Blood Count 2.54 M/mm3 (4.2-5.4); Red Cell Distribution Width 16.5 % (11.5-14.5); White Blood Count 2.2 K/mm3 (4.5-10.0)
[2023-09-03 06:38] LABS: Alanine Aminotransferase 21 U/L (6-35); Albumin Level 3.3 g/dL (3.5-5.1); Alkaline Phosphatase 66 U/L (38-126); Anion Gap 4 mmol/L (8-16); Aspartate Amino Transferase 27 U/L (14-36); Bilirubin,Total 0.4 mg/dL (0.2-1.3); Blood Urea Nitrogen 7 mg/dL (7-17); CRP 5.8 mg/dL (<1.0); Calcium 8.6 mg/dL (8.4-10.2); Carbon Dioxide 27 mmol/L (22-30); Chloride 106 mmol/L (98-107); Estimated CRCL calculation 120 ml/min; Estimated Glomerular Filt Rate > 60; Glucose 94 mg/dL (65-110); Potassium 3.8 mmol/L (3.4-5.0); Sodium 137 mmol/L (137-145)
[2023-09-03 08:30] VITALS: BP 136/77; PULSE 92; RESP 18; TEMP 35.5; O2SAT 99
--- NOTE | 2023-09-03 09:56 | WPDONCPN ---
Progress Note: A/P (1) Pancytopenia Code(s): D61.818 - Other pancytopenia Status: Acute <Hansel Martinez - 09/03/23 16:24> (1) Pancytopenia Code(s): D61.818 - Other pancytopenia Status: Acute <Indira Lazo - 09/03/23 10:48> - Additional Plan Patient seen and examined. Labs reviewed. Case was also discussed with Dr. Irizarry. Finding consistent with acute myeloid leukemia. I have discussed this with patient and the family in detail regarding 7 days of inpatient treatment with high-dose chemotherapy and subsequent consolidation treatment and possible bone marrow transplant given the young age of this patient. I have answered all the questions to patient and the family satisfaction. Patient will be transferred to [facility] for further management. Hansel Martinez MD <Hansel Martinez - 09/03/23 16:24> Pancytopenia- Preliminary bone marrow biopsy results are pending but flow cytometry revealing for AML with markedly increased myeloblasts identified by CD117 and MPO, 78% blasts after speaking with Dr. Irizarry. We will transfer her to [facility] under Dr. Salomon's team for further management and inpatient chemotherapy. I have discussed this with the patient at length and have answered all questions. <Indira Lazo 09/03/23 10:50> - Time Spent With Patient Total time spent is greater than 50% in coordination of care (as documented) at patient's floor/unit and/or counseling patient: <Hansel Martinez - 09/03/23 16:24> Total time spent is greater than 50% in coordination of care (as documented) at patient's floor/unit and/or counseling patient: <Indira Lazo 09/03/23 09:58> 25 - 35 minutes <Indira Lazo 09/03/23 09:58> Subjective Interval history: Patient is resting in bed. She states she is feeling well after her bone marrow biopsy. Reports some tenderness. Continues to have throat pain. No other complaints. <Indira Lazo 09/03/23 10:07> Review of Systems - Review of Systems All systems reviewed & are unremarkable except as noted in HPI and bel <Indira Lazo 09/03/23 09:58> - Neurologic Reports system reviewed and no additional complaints, except as documented <Indira Lazo - 09/03/23 09:58> Exam Vital signs: Temp Pulse Resp BP Pulse Ox O2 Del Method 35.9 C L 84 18 115/78 98 Room Air 09/03/23 12:45 09/03/23 12:45 09/03/23 12:45 09/03/23 12:45 09/03/23 12:45 09/03/23 08:00 <Hansel Martinez - 09/03/23 16:24> Temp Pulse Resp BP Pulse Ox O2 Del Method 35.5 C L 92 18 136/77 99 Room Air 09/03/23 08:00 09/03/23 08:00 09/03/23 08:00 09/03/23 08:00 09/03/23 08:00 09/02/23 10:55 <Indira Lazo - 09/03/23 09:58> - Constitutional no acute distress <Indira Lazo - 09/03/23 10:10> - Routine Neck Exam Present: lymphadenopathy <Indira Lazo - 09/03/23 10:10> - Routine Respiratory Exam Present: CTAB <Indira Lazo - 09/03/23 10:10> - Routine Cardiovascular Exam Cardiovascular: Present: RRR, S1, S2 <Indira Lazo - 09/03/23 10:10> - Routine Abdominal Exam Present: normal bowel sounds <Indira Lazo - 09/03/23 10:10> - Routine Skin Exam Comments: bone marow biospy incision <Indira aLzo - 09/03/23 10:10> - Routine Neurological Exam Present: alert, oriented X3 <Indira Lazo - 09/03/23 10:10> PN: Objective Data - Labs CBC & Chem 7: 09/03/23 05:31 09/03/23 05:31 <Hansel Martinez - 09/03/23 16:24> Labs: Laboratory Results - last 24 hr 09/02/23 09/03/23 08:22 05:31 WBC 2.2 L RBC 2.54 L Hgb 8.3 L Hct 24.3 L MCV 95.7 D MCH 32.7 MCHC 34.2 RDW 16.5 H Plt Count 42 L MPV 10.0 Immature Gran % (Auto) 0.4 Neut % (Auto) 5.0 L Lymph % (Auto) 76.8 H [place] % (Auto) 17.4 H Eos % (Auto) 0.4 Baso % (Auto) 0.0 L Lymph # (Auto) 1.72 [place] # (Auto) 0.4 Eos # (Auto) 0.0 Baso # (Auto) 0.0 Abs Immat Gran (auto) 0.01 Absolute Neuts (auto) 0.1 L Abso
--- NOTE | 2023-09-03 10:08 | PM.TDS ---
Transfer Discharge Sum: Prov Provider Date of admission: 09/01/23 11:21 Primary care physician: Josefa Hendrickson RN Admitting clinician: Hansel Martinez MD Consults: 08/30/23 Consult to Physician Routine Comment: Consulting Provider: Hansel Martinez call person/MD group to consult: dr. Martinez Reason for consultation: pancytopenia Has provider been notified: Yes Receiving physician/facility: [facility] - Dr Salomon DS: Admitting Diagnosis Discharge Date 09/03/23 Admitting Diagnosis Pancytopenia DS: Discharge Diagnosis Discharge Diagnosis (1) Pancytopenia: Code(s): D61.818 - Other pancytopenia Status: Inactive (2) Pharyngitis: Code(s): J02.9 - Acute pharyngitis, unspecified Status: Acute (3) Elevated d-dimer: Code(s): R79.89 - Other specified abnormal findings of blood chemistry Status: Acute (4) Dehydration: Code(s): E86.0 - Dehydration Status: Acute (5) Tachycardia: Code(s): R00.0 - Tachycardia, unspecified Status: Acute (6) Hypokalemia: Code(s): E87.6 - Hypokalemia Status: Acute Transfer Discharge Sum: Med Medications Active and Home Medications: Home Medications No Home Medications 07/08/23 [History Confirmed 08/31/23] Active Medications Acetaminophen (Acetaminophen 325 Mg Tablet) 650 mg PO Q6H PRN PRN Reason: Mild Pain (1-3) or Fever Last Admin: 09/03/23 01:02 Dose: 650 mg Benzocaine (Benzocaine/Menthol (*Bkc) 18 Ea Lozenge) 1 lozenge PO PRN PRN PRN Reason: Sore Throat Last Admin: 08/31/23 13:57 Dose: 1 lozenge Ceftriaxone Sodium (Rocephin 2 Gm/Ns 100 Ml) 2 gm in 100 mls @ 200 mls/hr IVPB Q24H SIOMARA Last Infusion: 09/02/23 15:16 Dose: Infused Morphine Sulfate (Morphine Sulfate (*Crx) 2 Mg/Ml Inj) 2 mg IV PUSH Q4H PRN PRN Reason: Pain Rated 7-10 Neomycin/Polymyxin/Bacitracin (Neomycin/Polymyxin/Bacitracin Ointment 15 Gm Tube) 1 applic TOPICAL PRN PRN PRN Reason: with dressing changes Transfer Discharge Sum: Hosp Hospital Course Hospital course: Sarah Mckeon is a 38 year old healthy female transferred from outside hospital for fever, sore throat, nausea and vomiting and was found to have pancytopenia. Please see H&P for details. Workup at the outside facility was significant for a WBC count of 3.1 (manual differential includes 16 neutrophils, 59 lymphocytes with some abnormal limbs were noted), RBC count 2.64, hemoglobin 9.0, hematocrit 29.4, platelets 26K, ESR greater than 140, D-dimer 2.20, sodium 131, potassium 3.3, chloride 94, lactic acid 1.2. Nolan screen was negative. She also tested negative for influenza, RSV, and COVID. ED physician spoke with Dr. Martinez who recommended transferring the patient to [place] for hematology evaluation. She was given a dose of Augmentin for pharyngitis. Patient was admitted to [facility]. Hematology/oncology was consulted. blood cultures remain no growth to date. Group A strep PCR was not detected. HIV were negative. Acute hepatitis panel was negative. RPR nonreactive. Throat culture did grow group C Streptococcus. She was started on Rocephin here. No fevers documented since admission. Chest x-ray was clear. CT soft tissue of the neck showed enlarged tonsils and adenoids consistent with tonsillitis but no discrete abscess. She had enlarged cervical lymph nodes likely reactive and mild sinusitis. CTA of the chest, abdomen and pelvis showed no acute abnormalities noted. No adenopathy. Abdominal ultrasound did show increased echogenicity of the liver consistent with diffuse hepatic steatosis. CT of the sinuses did show moderate sinusitis. Her white count trended down to 1700. Hemoglobin dropped to 6.9. Platelet count dropped to 20K. During hospital course, she received 1 unit of packed red blood cells and 2 units of platelets. Peripheral smear showed atypical lymphocytes with nucleoli suggestive of blasts versus reactive lym
[2023-09-03 12:00] VITALS: BP 130/88; PULSE 84; RESP 18; TEMP 35.9; O2SAT 98
[2023-09-03 12:45] VITALS: BP 115/78; PULSE 84; RESP 18; TEMP 35.9; O2SAT 98
[2023-09-03] MEDS: cefTRIAXone 2 GM/NS 100 ML 2 GM/100 ML BAG IVPB (16:11)
[2023-09-03 20:00] VITALS: BP 136/64; PULSE 55; RESP 16; TEMP 36.2; O2SAT 93
[2023-09-05 14:28] LABS: H Band Histoplasma Negative (Negative); M Band Histoplasma Negative (Negative)
--- NOTE | 2023-09-10 13:03 | PC.NURSE ---
Histoplasmosis AB are both negative. ARLENE is negative. Dr. Monica santo.
== END 2023-09-03 22:46 | disposition short-term general hospital (02) | DRG 690 ==
PROVIDERS: Nurse Practitioner Acute Care; Physician Assistant; Radiology Diagnostic Radiology; Admitting Provider Internal Medicine Hematology & Oncology; Visit Provider Student in an Organized Health Care Education/Training Program
PROC: 079T3ZX Drainage of Bone Marrow, Percutaneous Approach, Diagnostic (ICD-10-PCS; principal; 2023-09-02 10:00)
DX: C92.00 Acute myeloblastic leukemia, not having achieved remission (principal); J02.0 Streptococcal pharyngitis; D61.818 Other pancytopenia; E86.0 Dehydration; J32.9 Chronic sinusitis, unspecified; R00.0 Tachycardia, unspecified; E87.6 Hypokalemia; Z90.49 Acquired absence of other specified parts of digestive tract; Z87.891 Personal history of nicotine dependence; Z86.16 Personal history of COVID-19; E66.01 Morbid (severe) obesity due to excess calories; Z68.43 Body mass index [BMI] 50.0-59.9, adult
CPT/HCPCS: 36415; 36430; 38222; 70486; 70491; 71275; 74177; 76700; 80048; 80053; 80074; 80202; 81025; 82607; 82728; 82746; 83540; 83550; 83605; 83615; 83735; 84145; 84443; 84484; 85014; 85018; 85025; 85046; 85055; 85380; 85610; 85652; 85730; 86038; 86140; 86592; 86698; 86703; 86850; 86900; 86901; 86923; 87070; 87147; 88184; 88185; 88305; 88311; 88313; 88341; 88342; 93005; A9270; G0378; G0379; G0432; J0696; J1100; J1642; J2250; J2543; J3010; J3370; J3480; J7030; J7050; P9016; P9034; Q9967

== ENCOUNTER 2024-07-13 16:41 | Outpatient (RCR) | payer OTHER, SELFPAY ==
--- NOTE | 2024-07-13 17:38 | PTOPEVAL1 ---
Assessment and note entered by Di Pedro DPT Evaluation Information Assessment Status Evaluation Diagnosis R knee pain ICD-10 Condition Codes (PT) M25.561 Onset 07/08/24 Subjective Information Patient reports about a month ago R knee started with no injury. patient reports she had an x-ray done with no finding. she reports pain increases as the day progresses. she reports pain is worse on the medial aspect of knee. patient reports that walking, laying down a certain position, a stair navigation. since onset of pain she has been walking with a STC. she reports nothing is helping to decrease pain. 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 Reported Pain Level Pain Score 4: Self Report Assessment PT Clinical Summary Ms. Mckeon is a 39 year old female who presents to PT with R knee pain. She demonstrates decreased R knee active ROM, decreased R knee strength and impaired gait limiting her ability to navigate stairs, walk throughout the school day and lay down. She also demonstrates tenderness at the medial joint line indicating possible meniscus involvement. She would benefit from skilled PT to address impairments and return to [facility]. Plan of Care Interventions Electrical Stimulation,Gait Training,Hot Pack/Cold Pack,Manual Therapy,Neuro Re-education,Patient/ Caregiver Educati,Therapeutic Activities, Therapeutic Exercise PT Services Indicated Yes Treatment Frequency and 2x weekly for 8 visits Duration These treatments will address the objective and functional deficits as defined above. The patient will be advanced safely and appropriately in order for the patient to progress towards his/her prior level of function. Additional exercises will be introduced and as well as a comprehensive home exercise program upon discharge, if needed, ?to ensure carryover of functional gains achieved in the clinic. This treatment plan has been reviewed and agreement upon by the patient.
--- NOTE | 2024-08-10 16:44 | PTOPREEVAL ---
Assessment and note entered by Di Pedro DPT Evaluation Information Assessment Status Re-evaluation Diagnosis R knee pain ICD-10 Condition Codes (PT) M25.561 Onset 07/08/24 Subjective Information she reports that since start of PT she can walk more without pain but the end of the work day pain is increased. laying down continues to be painful . she reports she is performing stair navigation at [facility]. she reports someday are better than others. she gets an MRI next . She does think she is improving with PT. Reported Pain Level Pain Score 8: Self Report Assessment PT Clinical Summary Ms. Mckeon has been seen for 8 visits of skilled PT with progression towards goals. She has met goals for HEP and knee flexion. She continues to lack full strength and is lacking 2 deg of knee extension. She reports she is able to ambulate further distances but is still limited by pain. She continues to have difficulty sleeping and navigating stairs. She will benefit from continued skilled PT to address remaining impairments and return to [facility]. Plan of Care Interventions Electrical Stimulation,Gait Training,Hot Pack/Cold Pack,Manual Therapy,Neuro Re-education,Patient/ Caregiver Educati,Therapeutic Activities, Therapeutic Exercise PT Services Indicated Yes Treatment Frequency and continue 2x weekly for 8 visits Duration These treatments will address the objective and functional deficits as defined above. The patient will be advanced safely and appropriately in order for the patient to progress towards his/her prior level of function. Additional exercises will be introduced and as well as a comprehensive home exercise program upon discharge, if needed, ?to ensure carryover of functional gains achieved in the clinic. This treatment plan has been reviewed and agreement upon by the patient.
--- NOTE | 2024-08-17 10:55 | PTOPREEVAL ---
Assessment and note entered by Di Pedro DPT Evaluation Information Assessment Status Re-evaluation Diagnosis R knee pain ICD-10 Condition Codes (PT) M25.561 Onset 07/08/24 Subjective Information she reports that since start of PT she can walk more without pain but the end of the work day pain is increased. laying down continues to be painful . she reports she is performing stair navigation at [facility]. she reports someday are better than others. she gets an MRI next . She does think she is improving with PT. Assessment PT Clinical Summary Ms. Mckeon has been seen for 8 visits of skilled PT with progression towards goals. She has met goals for HEP and knee flexion. She continues to lack full strength and is lacking 2 deg of knee extension. She reports she is able to ambulate further distances but is still limited by pain. She continues to have difficulty sleeping and navigating stairs. She will benefit from continued skilled PT to address remaining impairments and return to [facility]. Plan of Care Interventions Electrical Stimulation,Gait Training,Hot Pack/Cold Pack,Manual Therapy,Neuro Re-education,Patient/ Caregiver Educati,Therapeutic Activities, Therapeutic Exercise PT Services Indicated Yes Treatment Frequency and continue 2x weekly for 8 visits Duration These treatments will address the objective and functional deficits as defined above. The patient will be advanced safely and appropriately in order for the patient to progress towards his/her prior level of function. Additional exercises will be introduced and as well as a comprehensive home exercise program upon discharge, if needed, ?to ensure carryover of functional gains achieved in the clinic. This treatment plan has been reviewed and agreement upon by the patient.
== END 2024-08-10 17:00 | disposition home or self-care (01) ==
LOC: CHSPT 16:41
PROVIDERS: Visit Provider Family Medicine
DX: M25.561 Pain in right knee (principal)
CPT/HCPCS: 97014; 97110; 97140; 97161; G0283

== ENCOUNTER 2024-08-04 14:55 | Outpatient (CLI) | payer OTHER, SELFPAY ==
--- NOTE | ~2024-08-04 | XR_ITS ---
CHEST RADIOGRAPH, PA AND LATERAL CLINICAL HISTORY: Subacute cough for the past 3 weeks . COMPARISON: 07/03/2022 TECHNIQUE: PA and lateral views of the chest. FINDINGS The cardiomediastinal silhouette is unremarkable. The lungs are clear. Visualized osseous structures and soft tissues are unremarkable. IMPRESSION: No focal infiltrate or effusion. Reviewed, dictated and finalized at location [facility]. 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
== END 2024-08-04 14:56 | disposition home or self-care (01) ==
LOC: CHSIMG 14:57
PROVIDERS: PCP Family Medicine; Visit Provider Family Medicine
DX: R05.2 Subacute cough (principal)
CPT/HCPCS: 71046

== ENCOUNTER 2024-08-28 07:38 | Outpatient (CLI) | payer OTHER, SELFPAY ==
--- NOTE | ~2024-08-28 | MR_ITS ---
MRI of the right knee Clinical history: Pain Technique: Coronal proton density and proton density-weighted images, sagittal proton-density and T2 fat-sat images, and axial proton-density fat-saturated images were acquired. Findings: Anterior and posterior cruciate ligaments are intact. Medial collateral ligament and the la teral collateral ligament complex are intact. Popliteus tendon is intact. There is prominent horizontal tear of the posterior horn and body of the medial meniscus. No lateral meniscal tear evident. There is a probable early/small medial para-meniscal cyst measuring 7 mm in di ameter. Articular cartilage is relatively well preserved throughout the knee. Bone marrow signals are unremar kable. Extensor mechanism is intact. Small joint effusion present. No Tran's cyst. Impression: Horizontal tear of the posterior horn and body of the medial meniscus with associated 7 mm medial par a-meniscal cyst. Small joint effusion. Reviewed, dictated and finalized at [facility]. TER HELPER Impression: Horizontal tear of the posterior horn and body of the medial meniscus with asso ciated 7 mm medial para-meniscal cyst. Small joint effusion.
--- OUTSIDE RECORDS SUMMARY | 2024-08-31 21:24 | XMS_ITS | Clinical Summary ---
Author Organization [facility] Smart Voicemail Address [facility] [place] [address] Care Team Providers Care Propeller Engineer Name Role Phone Osmar Ragland MD Primary Care Provider [phone] Source Comments [facility] [employer],non-owned Affiliates and Associated Physician Practices is amultiple site organization consisting of ambulatory clinics and hospital sitesin [place], [place], [place] and [place]. This disclosure is being madepursuant to the Care Everywhere program and may not contain all information available regarding this patient. Last updated 18.[facility] [employer] Allergies Active Allergy Reactions Criticality Noted Date Comments Vancomycin Itching 01/20/2024 Medications * Be aware that medications may not be up to date on this document. Alwaysverify current medications with the patient. Medication Sig Dispensed Refills Start Date End Date Status Carboxymethylcellu lose Sodium (ARTIFICIAL TEARS OP) Active famotidine (Pepcid) 20 MG tabletIndications: Tonsillitis Take 1 (one) tablet by mouth 2 times daily 60 tablet 1 10/17/2023 Active Additional Information Patient taking differently:20 mg OralDAILY, Reported on 08/23/2024 multivitamin daily tablet Take 1 (one) tablet by mouth daily with food Womans multivitamin Active folic acid (Folvite) 1 MG tablet Take 1 (one) tablet by mouth once daily 90 tablet 06/01/2024 Active acetaZOLAMIDE (Diamox) 250 MG tabletIndications: IIH (idiopathic intracranial hypertension) Take 1 (one) tablet by mouth 2 times daily 60 tablet 3 08/23/2024 Active valACYclovir (Valtrex) 500 MG tabletIndications: Acute 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) Take 1 (one) tablet by mouth 2 times daily 60 tablet 11 11/03/2023 Discontinue d(Tx Complete) acetaZOLAMIDE (Diamox) 250 MG tablet Take 1 (one) tablet by mouth 2 times daily 60 tablet 03/05/2024 Discontinue d(Reorder) Active Problems Problem Noted Date Diagnosed Date Anal or rectal pain 01/20/2024 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 ailyn 01/19/2024 Tachycardia 12/30/2023 Pseudotumor cerebri 12/06/2023 Hypernatremia 11/05/2023 Hypophosphatemia 11/05/2023 Anemia 11/04/2023 Vaginal bleeding 10/14/2023 IIH (idiopathic intracranial hypertension) 10/09 Acute hypoxic respiratory failure 09/27/2023 Pulmonary edema 09/27/2023 Pancytopenia due to chemotherapy 09/05/2023 Tonsillitis 09/05/2023 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 Resolved Problems Problem Noted Date Diagnosed Date Resolved Date Febrile neutropenia 09/27/2023 10/11/19 24 Encounters Date Type Department Care Team Description 08/23/2024 8:56 AM COMPUTER SYSTEMS TECHNOLOGY INSTRUCTOR - 08/23/2024 11:59 PM COMPUTER SYSTEMS TECHNOLOGY INSTRUCTOR Hospital Encounter [facility] [address] [place] [phone] Hussain Carias MD Kobayashi, Laura, APRN-CNP Discharge Disposition: Home or Self Care 08/23/2024 Travel 08/23/2024 Orders Only [facility] [address] [place] [phone] Alyson Butcher, aeronautics commission director 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) 06/25/2024 12:35 PM CDT - 06/25/2024 11:59 PM CDT Hospital Encounter [facility] [address] [place] [address] Rossana Jay APRN-CNP Discharge Disposition: Home or Self Care 06/25/2024 10:33 AM CDT - 06/25/2024 12:34 PM CDT Hospital Encounter [facility] [address] [place] [phone] Hussain Carias MD Lama, Shalu, APRN-CNP Discharge Disposition: Home or Self Care 06/25/2024 Travel 06/22/2024 Telephone [facility] [address] [place] [address] Alyson Butcher, RN 06/01/2024 Refill [facility] [address] [place] [address] Britni Winston, PA-C MEDICATION REFILL from Last 3 Months Immunizations Name Administration Dates Next Due INFLUENZA VACCINE, QUADR. (F LUZONE; FLULAVAL; FLUARIX; AFLURIA QUADRIVALENT; 6MO+), 0.5 ML (IIV4) 07/18/2020 Social History Tobacco Use Types Packs/Day Years Used Date Smoking Tobacco: Former Cigarettes 1 6 2 005 - 2010 Smokeless Tobacco: Never Tobacco Cessation:Counseling Given: Not Answered Alcohol Use Standard Drinks/Week Comments Yes 0 (1 standard drink = 0.6 oz pur e alcohol) occasional AUDIT-C Answer Date Recorded Q1: How often do you have a drink containing alcohol? Never 01/19/2024 Q2: How many drinks containi ng alcohol do you have on a typical day when you are drinking? Patient does not drink Q3: How often do you have si x or more drinks on one occasion? Never 01/19/2024 Overall Financial Resource Strain (CARDIA) Answe r Date Recorded How hard is it for you to pa y for the very basics like food, housing, medical care, and heating? Not hard at all 01/19/2024 PHQ-2 Answer Date Recorded Patient Health Questionnaire-2 Score 0 03/03/2024 [facility] of Occupat ional Health - Occupational Stress Questionnaire Answer Date Recorded Do you feel stress - tense, restless, nervous, or anxious, or unable to sleep at night because your mind is troubled all the time - these days? Not at all 01/19/2024 Hunger Vital Sign Answer Date Recorded Within the past 12 months, y ou worried that your food would run out before you got the money to buy more. Never true 01/19/20 24 Within the past 12 months, t he food you bought just didn't last and you didn't have money to get more. Never true 01/19/2024 PRAPARE - Transportation Answer Date Re corded In the past 12 months, has l ack of transportation kept you from medical appointments or from getting medications? No 02/2024 In the past 12 months, has l ack of transportation kept you from meetings, work, or from getting things needed for daily living? No 01/19/2024 Housing Stability Vital Sign Answer Richi e Recorded In the last 12 months, was t here a time when you were not able to pay the mortgage or rent on time? No 01/19/2024 In the last 12 months, how many places have you lived? 1 01/19/2024 In the last 12 months, was t here a time when you did not have a steady place to sleep or slept in a chcf (including now)? No 01/19/2024 Sex and Gender Information Value Date Recorded Sex Assigned at Not on file Gender Identity Female 02/13/2024 1:12 PM CDT Sexual Orientation Not on file Last Filed Vital Signs Vital Sign Reading Time Taken Comments Blood Pressure 136/93 08/23/2024 9:57 AM COMPUTER SYSTEMS TECHNOLOGY INSTRUCTOR Pulse 90 08/23/2024 9:57 AM COMPUTER SYSTEMS TECHNOLOGY INSTRUCTOR Temperature 36.7 ??C (98.1 ??F) 08/23/2024 9:57 AM CS T Respiratory Rate 18 08/23/2024 9:57 AM COMPUTER SYSTEMS TECHNOLOGY INSTRUCTOR Oxygen Saturation 97% 08/23/2024 9:57 AM COMPUTER SYSTEMS TECHNOLOGY INSTRUCTOR Inhaled Oxygen Concentration 21% 09/16/2023 4 :17 AM COMPUTER SYSTEMS TECHNOLOGY INSTRUCTOR Weight 117.3 kg (258 lb 11.2 oz) 08/23/2024 9:57 AM COMPUTER SYSTEMS TECHNOLOGY INSTRUCTOR Height 157.5 cm (5' 2 ) 08/23/2024 9:57 AM COMPUTER SYSTEMS TECHNOLOGY INSTRUCTOR Body Mass Index 47.32 08/23/2024 9:57 AM COMPUTER SYSTEMS TECHNOLOGY INSTRUCTOR Plan of Treatment Upcoming Encounters Date Type Department Care Team (Late st Contact Info) Description 10/27/2024 10:30 AM COMPUTER SYSTEMS TECHNOLOGY INSTRUCTOR Appointment [facility] [address] [place] [address] Hussain Carias MD [address] [place] [address] Britni Winston PA-C [address] [place] [address] 11/17/2024 9:00 AM COMPUTER SYSTEMS TECHNOLOGY INSTRUCTOR Office Visit [facility] - Ophthalmology [address] [facility], [place] [phone] Song Hobson MD [address] [facility] [place] [address] Health Maintenance Due Date Last Done Comments PAP SMEAR 1986 PNEUMOCOCCAL VACCINE (1 of 2 - PCV) 1992 DTAP/TDAP/TD VACCINES (1 - Tdap) 2005 HEPATITIS B VACCINE (1 of 3 - 19+ 3-dose series) 2005 ZOSTER VACCINE (1 of 2) 2005 COVID-19 VACCINE (2 - Pfizer risk series) 05/22/2021 05/01/2021 INFLUENZA VACCINE (#1) 2024 07/18/2020 HEPATITIS C SCREENING Completed 09/04/2023 HIV SCREENING Completed 09/04/2023 DEPRESSION SCREENING Completed 03/03/2024 HIB VACCINE Aged Out No longer eligi ble based on patient's age to complete this topic HPV VACCINE Aged Out No longer eligi ble based on patient's age to complete this topic MENINGOCOCCAL VACCINE Aged Out No andrea josephine eligible based on patient's age to complete this topic Medical Devices Implanted Type Area Medicine Man Device Identifier Shelf Expiration Date Model / Serial / Lot Tray Cath 12fr 19cm Hkmn Trifusion 3 Lum Implanted:Qty: 1 on 09/05/2023 at [facility] Right: Chest [employer] 11/12/2024 [id number] / / [id number] Description:Dr. Balbina neil nawaf Procedures Procedure Name Priority Date/Time Associated Diagnosis Comments NPM1 MUTATION DETECTION PCR Routine 08/23/2024 9:40 AM COMPUTER SYSTEMS TECHNOLOGY INSTRUCTOR Acute 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) PHOSPHORUS BLOOD Routine 08/23/2024 9:40 AM COMPUTER SYSTEMS TECHNOLOGY INSTRUCTOR Acute 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) MAGNESIUM BLOOD Routine 08/23/2024 9:40 AM COMPUTER SYSTEMS TECHNOLOGY INSTRUCTOR Acute 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) COMPREHENSIVE METABOLIC PANEL Routine 08/23/2024 9:40 AM COMPUTER SYSTEMS TECHNOLOGY INSTRUCTOR Acute 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) CBC W AUTO DIFFERENTIAL Routine 08/23/2024 9:40 AM COMPUTER SYSTEMS TECHNOLOGY INSTRUCTOR Acute 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) XR KNEE RIGHT 3VW Routine 06/25/2024 12: 43 PM CDT Acute pain of right knee TYPE + SCREEN PANEL STAT 06/25/2024 1 1:19 AM CDT Acute 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) ERYTHROCYTE SEDIMENTATION RATE Routine 06/25/2024 11:19 AM CDT Acute pain of right knee NPM1 MUTATION DETECTION PCR Routine 06/25/2024 11:19 AM CDT 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sion (HCC) URIC ACID BLOOD STAT 06/25/2024 11:19 AM CDT Acute 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) LDH BLOOD STAT 06/25/2024 11:19 AM CDT Acute 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) CBC W AUTO DIFFERENTIAL STAT 06/25/2024 11:19 AM CDT Acute 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) MAGNESIUM BLOOD STAT 06/25/2024 11:19 AM CDT Acute 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) COMPREHENSIVE METABOLIC PANEL STAT 06/25/2024 11:19 AM CDT Acute 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) PHOSPHORUS BLOOD STAT 06/25/2024 11:1 9 AM CDT Acute 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) HEPATITIS C AB SCREEN RFLX NAAT QUANT Routine 09/04/2023 5:20 AM COMPUTER SYSTEMS TECHNOLOGY INSTRUCTOR HIV-1 HIV-2 ANTIBODY + HIV P24 AG PANEL Routine 09/04/2023 5:20 AM COMPUTER SYSTEMS TECHNOLOGY INSTRUCTOR from Last 3 Months or Most Recently Relevant to Health Maintenance Results * NPM1 MUTATION DETECTION PCR (08/23/2024 9:40 AM COMPUTER SYSTEMS TECHNOLOGY INSTRUCTOR) Only the most recent of2 resultswithin the time period is included. [facility] NPM1 Source Whole Blood 08/27/2024 1:35 PM [facility] [employer] ([facility]) NPM1 Result Not Detected 08/27/2024 1:35 PM [facility] [employer] ([facility]) Comment: A NPM1 (type A, B, or D) mutation was not detected. This result has been reviewed and approved by Raheem Warner M.D., Ph.D. INTERPRETIVE INFORMATION: NPM1 Mutation Detection ?by RT-PCR, Quantitative This test is designed to detect and quantify NPM1 mutant transcripts. NPM1 mutations represent a common recurrent genetic abnormality found in a subset of patients with acute myeloid leukemia (AML). Approximately one-third of AML patients overall and one-half of cytogenetically normal AML patients harbor an NPM1 mutation, with the most common form being a TCTG insertion (type A) seen in approximately 80% of NPM1-mutated cases. Rarer forms, known as types B and D, compose around 10% of NPM1-mutated cases. This test is designed to detect and quantify NPM1-mutant transcripts of types A, B, and D only. Mutated NPM1 confers a favorable prognosis in cytogenetically normal AML patients who lack FLT3 internal tandem duplication mutations. Recent studies show that minimal residual disease (MRD) monitoring of AML patients after chemotherapy provides important prognostic information independent of other risk factors and may help to inform clinical decisions (see reference). ?? METHODOLOGY: Patient RNA is isolated, reverse transcribed into cDNA, and amplified using multiplex allele-specific primers targeting types A, B, and D NPM1 variants. A fragment of the ABL1 gene is co-amplified and quantification is performed using the delta-delta Ct method relative to a plasmid calibrator that harbors a 1:1 ratio of NPM1 type A and ABL1 cDNA fragments. Results are reported as a normalized ratio of NPM1 variant transcripts to ABL1 transcripts present in the sample. ?? LIMITATIONS: Rare NPM1 variants (non-type A, B, or D) may not be detected. The limit of detection for this assay is 1:100,000 cells (0.001%) for type A NPM1 mutants based on cell line dilution experiments. The sensitivity of this assay for type B and D mutants is expected to be similar but has not been demonstrated. Results of this test must always be interpreted within the patient's clinical context and in conjunction with other relevant data, and should not be used alone for a diagnosis of malignancy. A negative result does not definitely exclude the possibility of an NPM1 mutation below the detection limit of this test and does not exclude the possibility of ??rare forms of NPM1 mutant transcripts (non-type A, B, or D) not detectable by this methodology. For ongoing monitoring after initial diagnosis, this test should only be used in patients who are known to have NPM1-mutated AML. Reference: Joan Jimenez et al. Assessment of Minimal Residual Disease in Standard-Risk AML. N Engl J Med. 2016 Oct 19;374(5):422-33. This test was developed and its performance characteristics determined by [employer]. It has not been cleared or approved by the US Food and Drug Administration. This test was performed in a CLIA certified laboratory and is intended for clinical purposes. NPM1 Ratio 0.0000 08/27/2024 1:35 PM COMPUTER SYSTEMS TECHNOLOGY INSTRUCTOR [employer] ([facility]) Comment: Performed By: [employer] [address] [place] [address] Journalism Professor: Ebenezer Shipman MD, PhD CLIA Number: [id number] BLOOD SPECIMEN / Unknown 08/23/2024 9:40 AM COMPUTER SYSTEMS TECHNOLOGY INSTRUCTOR 08/23/2024 9:56 AM COMPUTER SYSTEMS TECHNOLOGY INSTRUCTOR Hussain Carias MD LAB - CHEMISTRY JON NAIDU [facility] [employer] [facility]) [address] [place] [address] * (ABNORMAL) CBC WITH DIFFERENTIAL (08/23/2024 9:40 AM COMPUTER SYSTEMS TECHNOLOGY INSTRUCTOR) Only the most recent of2 resultswithin the time period is included. WBC 5.2 4.0 - 10.7 x10E9/L 08/23/2024 10:03 AM [facility] RBC Count 4.47 3.90 - 5.20 x10E12/L 08/23/2024 10:03 AM [facility] Hemoglobin 14.1 11.9 - 15.8 g/dL 08/23/2024 10:03 AM [facility] Hematocrit 40.6 34.8 - 46.1 % 08/23/2024 10:03 AM [facility] MCV 90.8 80.0 - 98.0 fL 08/23/2024 10:03 AM [facility] MCH 31.5 26.7 - 33.6 pg 08/23/2024 10:03 AM [facility] MCHC 34.7 31.7 - 36.3 g/dL 08/23/2024 10:03 AM [facility] RDW-CV 12.6 11.3 - 14.8 % 08/23/2024 10:03 AM [facility] Platelet Count 153 150 - 420 x10E9/L 08/23/2024 10:03 AM [facility] MPV 9.1 7.8 - 11.4 fL 08/23/2024 10:03 AM [facility] Preliminary Absolute Neutrophil 3.81 1.60 - 7.50 x10E9/L 08/23/2024 10:03 AM [facility] Neutrophil % 72.7 41.0 - 74.0 % 08/23/2024 10:03 AM [facility] Lymphocyte % 17.0 17.0 - 47.0 % 08/23/2024 10:03 AM [facility] Monocyte % 8.4 3.0 - 11.0 % 08/23/2024 10:03 AM [facility] Eosinophil % 1.3 0.0 - 7.0 % 08/23/2024 10:03 AM [facility] Basophil % 0.2 0.0 - 1.6 % 08/23/2024 10:03 AM [facility] Immature Granulocytes % 0.4 0.0 - 1.0 % 08/23/2024 10:03 AM [facility] Neutrophil Absolute 3.81 1.60 - 7.50 x10E9/L 08/23/2024 10:03 AM [facility] Lymphocyte Absolute 0.89(L) 1.00 - 4.40 x10E9/L 08/23/2024 10:03 AM [facility] Monocyte Absolute 0.44 0.15 - 1.00 x10E9/L 08/23/2024 10:03 AM [facility] Eosinophil Absolute 0.07 0.00 - 0.60 x10E9/L 08/23/2024 10:03 AM [facility] Basophil Absolute 0.01 0.00 - 0.13 x10E9/L 08/23/2024 10:03 AM [facility] Blood BLOOD SPECIMEN / Unknown Venipuncture / Unknown 08/23/2024 9:40 AM COMPUTER SYSTEMS TECHNOLOGY INSTRUCTOR 08/23/2024 9:56 AM [facility] Hussain Carias MD LAB - HEMATOLOGY ORD ERABLES Performing Organization Address City/State/[facility] Co de Phone Number [address] [phone] [phone] * (ABNORMAL) COMPREHENSIVE METABOLIC PANEL (08/23/2024 9:40 AM COMPUTER SYSTEMS TECHNOLOGY INSTRUCTOR) Only the most recent of2 resultswithin the time period is included. BUN 9 7 - 26 mg/dL 08/23/2024 10:23 AM [facility] Creatinine 0.63 0.56 - 0.96 mg/dL 08/23/2024 10:23 AM [facility] Sodium 141 136 - 145 mmol/L 08/23/2024 10:23 AM [facility] Potassium 3.5 3.5 - 4.5 mmol/L 08/23/2024 10:23 AM [facility] Chloride 112(H) 98 - 107 mmol/L 08/23/2024 10:23 AM [facility] CO2 19(L) 22 - 29 mmol/L 08/23/2024 10:23 AM [facility] Glucose 155(H) 70 - 99 mg/dL 08/23/2024 10:23 AM [facility] Calcium 9.3 8.4 - 10.2 mg/dL 08/23/2024 10:23 AM [facility] Protein Total 7.0 6.0 - 8.3 g/dL 08/23/2024 10:23 AM [facility] Albumin 3.7 3.4 - 5.0 g/dL 08/23/2024 10:23 AM [facility] Bilirubin Total 0.4 0.2 - 1.2 mg/dL 08/23/2024 10:23 AM [facility] Alkaline Phosphatase 106 40 - 150 U/L 08/23/2024 10:23 AM [facility] ALT 18 5 - 55 U/L 08/23/2024 10:23 AM [facility] AST 18 5 - 34 U/L 08/23/2024 10:23 AM [facility] Anion Gap 10 6 - 16 08/23/2024 10:23 AM [facility] BUN/Creatinine Ratio 14 7 - 23 08/23/2024 10:23 AM [facility] Osmolality Calculated 294 275 - 295 mOsm/kg 08/23/2024 10:23 AM [facility] Albumin/Globulin Ratio 1.1 1.1 - 2.3 08/23/2024 10:23 AM [facility] eGFR by CKD-EPI >90 >=90 mL/min/1.7 3 m2 08/23/2024 10:23 AM [facility] Blood BLOOD SPECIMEN / Unknown Venipuncture / Unknown 08/23/2024 9:40 AM COMPUTER SYSTEMS TECHNOLOGY INSTRUCTOR 08/23/2024 9:56 AM [facility] Hussain Carias MD LAB - CHEMISTRY JON NAIDU [facility] Organization Address City/State/ZIP Co de Phone Number [facility] [address] [place] [address], [facility] [phone] * (ABNORMAL) PHOSPHORUS BLOOD (08/23/2024 9:40 AM [facility]) Only the most recent of2 resultswithin the time period is included. Phosphorus 2.6(L) 2.9 - 5.1 mg/dL 08/23/2024 10:23 AM [facility] Blood BLOOD SPECIMEN / Unknown Venipuncture / Unknown 08/23/2024 9:40 AM COMPUTER SYSTEMS TECHNOLOGY INSTRUCTOR 08/23/2024 9:56 AM COMPUTER SYSTEMS TECHNOLOGY INSTRUCTOR Hussain Carias MD LAB - CHEMISTRY JON NAIDU Performing Organization Address City/[facility]/ZIP Co de Phone Number [address] [address], [facility] [phone] * MAGNESIUM BLOOD (08/23/2024 9:40 AM COMPUTER SYSTEMS TECHNOLOGY INSTRUCTOR) Only the most recent of2 resultswithin the time period is included. Magnesium 1.9 1.6 - 2.6 mg/dL 08/23/2024 10:23 AM COMPUTER SYSTEMS TECHNOLOGY INSTRUCTOR [facility] Blood BLOOD SPECIMEN / Unknown Venipuncture / Unknown 08/23/2024 9:40 AM COMPUTER SYSTEMS TECHNOLOGY INSTRUCTOR 08/23/2024 9:56 AM COMPUTER SYSTEMS TECHNOLOGY INSTRUCTOR Hussain Carias MD LAB - CHEMISTRY JON NAIDU Performing Organization Address [facility] Co de Phone Number [address] [address], [facility] [phone] * XR Knee Right 3Vw (06/25/2024 12:43 PM CDT) Anatomical Region Laterality Modality Lower Extremity Digital Radiogra phy 06/25/2024 3:49 PM CDT Impressions 06/28/2024 9:54 AM CDT IMPRESSION: No acute fracture or dislocation identified. Report dictated by Sivakumar Garrido DO (campus president). I, Sergio Arango MD have personally reviewed and interpreted this examination/study. > Interpreting Provider: Sergio Arango MD on 06/28/2024 9:54 AM Narrative 06/28/2024 9:54 AM CDT PROCEDURE: ??XR KNEE RIGHT 3VW, DATE/TIME OF EXAM: ??06/25/2024 12:44 PM, LOCATION ??[facility] INDICATION: M25.561: Acute pain of right knee ADDITIONAL CLINICAL INFORMATION: Ordering Provider Reason For Exam: ??pain and swelling of knees Technologist Note: ??patient states pain while walking started a month ago. stabbing pain on medial side of knee Additional: None. COMPARISON: None. FINDINGS: No acute fracture or dislocation. The knee joint space is preserved. No joint effusion is seen. Bone density and texture are normal. Procedure Note Sergio Arango MD - 06/28/2024 PROCEDURE: XR KNEE RIGHT 3VW, DATE/TIME OF EXAM: 06/25/2024 12:44 PM, LOCATION [facility] INDICATION: M25.561: Acute pain of right knee ADDITIONAL CLINICAL INFORMATION: Ordering Provider Reason For Exam: pain and swelling of knees Technologist Note: patient states pain while walking started a monthago. stabbing pain on medial side of knee Additional: None. COMPARISON: None. FINDINGS: No acute fracture or dislocation. The knee joint space is preserved. No joint effusion is seen. Bone density and texture are normal. IMPRESSION: No acute fracture or dislocation identified. Report dictated by Sivakumar Garrido DO (campus president). I, Sergio Arango MD have personally reviewed and interpreted this examination/study. > Interpreting Provider: Sergio Arango MD on 06/28/2024 9:54 AM Rossana Jay SOD CUTTER-OPERATIONAL ASSISTANT DIAGNOSTIC IMAGING O RDERABLES * (ABNORMAL) URIC ACID BLOOD (06/25/2024 11:19 AM CDT) Pathologist [facility] Uric Acid 6.5(H) 2.6 - 6.0 mg/dL 06/25/2024 11:56 AM CDT [facility] Blood BLOOD SPECIMEN / Unknown Venipuncture / Unknown 06/25/2024 11:19 AM CDT 06/25/2024 11:32 AM CDT Britni Winston PA-C LAB - CHEMISTRY JON NAIDU [address] [address], [facility] [phone] * TYPE + SCREEN PANEL (06/25/2024 11:19 AM CDT) Antibody Screen NEG 12:16 PM CDT [facility] ABO Rh O POS 06/25/2024 12:16 PM CDT [facility] Blood Bank BLOOD SPECIMEN / Unknown Venipuncture / Unknown 06/25/2024 11:19 AM CDT 06/25/2024 11:35 AM CDT Britni Winston PA-C LAB - BLOOD BANK ORD ERAJANES [facility] [address] [place] [phone], [facility] [phone] * ERYTHROCYTE SEDIMENTATION RATE (06/25/2024 11:19 AM CDT) Pathologist [facility] Erythrocyte Sedimentation Rate Westergren 17 0 - 20 MM/HR 06/25/2024 12:25 PM CDT [facility] Blood BLOOD SPECIMEN / Unknown Venipuncture / Unknown 06/25/2024 11:19 AM CDT 06/25/2024 11:32 AM CDT Rossana LOPEZ LAB - HEMATOLOGY ORD ERABLES Performing Organization Address City/[facility]/ZIP Co de Phone Number [address] [address], [place] [phone] * LDH BLOOD (06/25/2024 11:19 AM CDT) [facility] LDH Total 182 125 - 243 Units/L 06/25/2024 11:56 AM CDT [facility] Blood BLOOD SPECIMEN / Unknown Venipuncture / Unknown 06/25/2024 11:19 AM CDT 06/25/2024 11:32 AM CDT Britni Winston PA-C LAB - CHEMISTRY ORDAzul NAIDU Performing Organization Address City/[facility]/ZIP Co de Phone Number [address] [address], [place] [phone] * HEPATITIS C AB SCREEN RFLX NAAT QUANT (09/04/2023 5:20 AM COMPUTER SYSTEMS TECHNOLOGY INSTRUCTOR) Pathologist [facility] Hepatitis C Antibody Non-react easton Non-reac tive 09/04/2023 6:58 AM COMPUTER SYSTEMS TECHNOLOGY INSTRUCTOR [facility] Comment:Hepatitis C Antibody screen indicates no serologic evidence of past or current infection with Hepatitis C Virus. Patients with unexplained liver disease who are immunocompromised or suspected of having acute Hepatitis C infection may benefit from Nucleic Acid Test (PRADIP) for Hepatitis C Viral RNA to confirm Hepatitis C status. Blood BLOOD SPECIMEN / Unknown Lab Venipuncture / Unknown 09/04/2023 5:20 AM COMPUTER SYSTEMS TECHNOLOGY INSTRUCTOR 09/04/2023 6:05 AM COMPUTER SYSTEMS TECHNOLOGY INSTRUCTOR Graham Beltran MD LAB - CHEMISTRY JON NAIDU [facility] [address] [place] [address], [place] [phone] * HIV-1 HIV-2 ANTIBODY + HIV P24 AG PANEL (09/04/2023 5:20 AM COMPUTER SYSTEMS TECHNOLOGY INSTRUCTOR) HIV Antigen/Antibod y 1 & 2 Non-reacti ve Non-react easton 09/04/2023 6:59 AM COMPUTER SYSTEMS TECHNOLOGY INSTRUCTOR [facility] Comment:No Laboratory eviden ce of HIV infection. Blood BLOOD SPECIMEN / Unknown Lab Venipuncture / Unknown 09/04/2023 5:20 AM COMPUTER SYSTEMS TECHNOLOGY INSTRUCTOR 09/04/2023 6:05 AM COMPUTER SYSTEMS TECHNOLOGY INSTRUCTOR Graham Beltran MD LAB - CHEMISTRY JON NAIDU [facility] [address] [place] [address], [place] [phone] from Last 3 Months or Most Recently Relevant to Health Maintenance Advance Directives * Full Code (Latest Code Status on File) Date Activated Date Inactivated Comments 01/19/2024 4:43 PM 01/23/2024 6:56 PM * Full Code Date Activated Date Inactivated Comments 12/30/2023 5:11 PM 01/04/2024 3:01 PM * Full Code Date Activated Date Inactivated Comments 12/01/2023 8:35 PM 12/06/2023 12:38 PM * Full Code Date Activated Date Inactivated Comments 11/03/2023 7:26 PM 11/08/2023 2:34 PM * Full Code Date Activated Date Inactivated Comments 09/04/2023 1:49 AM 10/09/2023 6:20 PM Care Teams Propeller Engineer Relationship Specialty Start Date End Date Osmar Ragland MD [address] [place] [address] PCP - General Family Medicine 04/19/24
--- OUTSIDE RECORDS SUMMARY | 2024-08-31 21:24 | XMS_ITS | Referral Summary ---
Author Organization [facility] Address [facility] [place] [address] Care Team Providers Care Investigator Cash Shortage Name Role Phone Osmar Ragland MD Primary Care Provider [phone] Source Comments [facility],non-owned Affiliates and Associated Physician Practices is amultiple site organization consisting of ambulatory clinics and hospital sitesin [place], [place], [place] and [place]. This disclosure is being madepursuant to the Care Everywhere program and may not contain all information available regarding this patient. 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) 08/23/2024 8:56 AM ASSURANCE ANALYST - 08/23/2024 11:59 PM ASSURANCE ANALYST Hospital Encounter [facility] [address] [place] [address] Hussain Carias MD Kobayashi, Laura, APRN-CNP Discharge Disposition: Home or Self Care 06/25/2024 12:35 PM CDT - 06/25/2024 11:59 PM CDT Hospital Encounter [facility] DIAGNOSTIC RAD OP [address] [place] [address] Rossana Jay APRN-CNP Discharge Disposition: Home or Self Care 06/25/2024 Travel 06/25/2024 10:33 AM CDT - 06/25/2024 12:34 PM CDT Hospital Encounter [facility] [address] [place] [address] Hussain Carias MD Lama, Shalu, SAW OPERATOR-DRAFTER DETAIL Discharge Disposition: Home or Self Care 06/22/2024 Telephone [facility] [address] [place] [address] Alyson Butcher RN 06/01/2024 Refill [facility] [address] [place] [address] Britni Winston, PA-C MEDICATION REFILL from Last 3 Months Allergies Active Allergy Reactions Criticality Noted Date [...] 2 times daily 60 tablet 3 08/23/2024 5 Active valACYclovir (Valtrex) 500 MG tabletIndications: Acute 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) Take 1 (one) tablet by mouth 2 times daily 60 tablet 11 11/03/2023 4 Discontinue d(Tx Complete) acetaZOLAMIDE (Diamox) 250 MG tablet Take 1 (one) tablet by mouth 2 times daily 60 tablet 03/05/2024 4 Discontinue d(Reorder) Active Problems Problem Noted Date [...] Date Resolved Date Febrile neutropenia 09/27/2023 10/11/19 Immunizations Name Administration Dates Next Due INFLUENZA [...] Recorded Patient Health Questionnaire-2 Score 0 03/03/2024 [facility] [place] of Occupat ional Health - Occupational Stress [...] place to sleep or slept in a detention (including now)? No 01/19/2024 Sex and Gender Information Value Date Recorded Sex Assigned at Not on file Gender Identity Female 02/13/2024 1:12 PM CDT Sexual Orientation Not on file Last Filed Vital Signs Vital Sign Reading Time Taken Comments Blood Pressure 136/93 08/23/2024 9:57 AM ASSURANCE ANALYST Pulse 90 08/23/2024 9:57 AM ASSURANCE ANALYST Temperature 36.7 ??C (98.1 ??F) 08/23/2024 9:57 AM CS T Respiratory Rate 18 08/23/2024 9:57 AM ASSURANCE ANALYST Oxygen Saturation 97% 08/23/2024 9:57 AM ASSURANCE ANALYST Inhaled Oxygen Concentration 21% 09/16/2023 4 :17 AM ASSURANCE ANALYST Weight 117.3 kg (258 lb 11.2 oz) 08/23/2024 9:57 AM ASSURANCE ANALYST Height 157.5 cm (5' 2 ) 08/23/2024 9:57 AM ASSURANCE ANALYST Body Mass Index 47.32 08/23/2024 9:57 AM ASSURANCE ANALYST Functional Status Functional Status Response Date of Assess ment Is person deaf or have serious hearing difficult y? No 03/03/2024 Is person blind or have serious difficulty seein g? No 03/03/2024 Does person have serious dif ficulty walking/climbing stairs? No 03/03/2024 Does person have difficulty dressing/bathing? No 03/03/2024 Does person have difficulty doing errands alone? No 03/03/2024 Cognitive Status Response Date of Assessm ent Does person have difficulty concentrating/remembering/making decisions? No 03/03/2024 Plan of Treatment Upcoming Encounters Date Type Department Care Team (Late st Contact Info) Description 10/27/2024 10:30 AM ASSURANCE ANALYST Appointment [facility] [address] [place] [address] Hussain Carias MD [address] [place] [phone] Britni Winston PABaronC [address] [place], [place] [id number] 11/17/2024 9:00 AM ASSURANCE ANALYST Office Visit [facility] - Ophthalmology [address] [place] [phone] Song Hobson MD [employer] [place] [address] Medical Devices Implanted Type Area Apparel Patternmaker Device Identifier Shelf Expiration Date Model / Serial / Lot Tray Cath 12fr 19cm Hkmn Trifusion 3 Lum Implanted:Qty: 1 on 09/05/2023 at [facility] Right: Chest [employer] 11/12/2024 [id number] / / [id number] Description:Dr. Balbina neil nawaf Procedures Procedure Name Priority Date/Time Associated Diagnosis Comments NPM1 MUTATION DETECTION PCR Routine 08/23/2024 9:40 AM ASSURANCE ANALYST Acute 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) PHOSPHORUS BLOOD Routine 08/23/2024 9:40 AM ASSURANCE ANALYST Acute 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) MAGNESIUM BLOOD Routine 08/23/2024 9:40 AM ASSURANCE ANALYST Acute 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) COMPREHENSIVE METABOLIC PANEL Routine 08/23/2024 9:40 AM ASSURANCE ANALYST Acute 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) CBC W AUTO DIFFERENTIAL Routine 08/23/2024 9:40 AM ASSURANCE ANALYST Acute 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) XR [...] RFLX NAAT QUANT Routine 09/04/2023 5:20 AM ASSURANCE ANALYST HIV-1 HIV-2 ANTIBODY + HIV P24 AG PANEL Routine 09/04/2023 5:20 AM ASSURANCE ANALYST from Last 3 Months or Most Recently Relevant to Health Maintenance Results * NPM1 MUTATION DETECTION PCR (08/23/2024 9:40 AM ASSURANCE ANALYST) Only the most recent of2 resultswithin the time period is included. [facility] NPM1 Source Whole Blood 08/27/2024 1:35 PM [facility] [employer] ([facility]) NPM1 Result Not Detected 08/27/2024 1:35 PM [facility] [employer] ([facility]) Comment: A NPM1 (type A, B, or [...] developed and its performance characteristics determined by [employer]. It has not been cleared or approved by the US Food and Drug Administration. This test was performed in a CLIA certified laboratory and is intended for clinical purposes. NPM1 Ratio 0.0000 08/27/2024 1:35 PM ASSURANCE ANALYST [facility]) Comment: Performed By: [facility] [address] [place] [address] Porter Sample Case: Ebenezer Shipman MD, PhD CLIA Number: [id number] BLOOD SPECIMEN / Unknown 08/23/2024 9:40 AM ASSURANCE ANALYST 08/23/2024 9:56 AM ASSURANCE ANALYST Hussain Carias MD LAB - CHEMISTRY JON NAIDU [facility]) [address] [place] [address] * (ABNORMAL) CBC WITH DIFFERENTIAL (08/23/2024 9:40 AM ASSURANCE ANALYST) Only the most recent of2 resultswithin the time period is included. WBC 5.2 4.0 - 10.7 x10E9/L 08/23/2024 10:03 AM [facility] RBC Count 4.47 3.90 - 5.20 x10E12/L 08/23/2024 10:03 AM [facility] Hemoglobin 14.1 11.9 - 15.8 g/dL 08/23/2024 10:03 AM [facility] Hematocrit 40.6 34.8 - 46.1 % 08/23/2024 10:03 AM [facility] MCV 90.8 80.0 - 98.0 fL 08/23/2024 10:03 AM [facility] MCH 31.5 26.7 - 33.6 pg 08/23/2024 10:03 AM [facility] MCHC 34.7 31.7 - 36.3 g/dL 08/23/2024 10:03 AM [facility] RDW-CV 12.6 11.3 - 14.8 % 08/23/2024 10:03 AM [facility] Platelet Count 153 150 - 420 x10E9/L 08/23/2024 10:03 AM [facility] MPV 9.1 7.8 - 11.4 fL 08/23/2024 10:03 AM [facility] Preliminary Absolute Neutrophil 3.81 1.60 - 7.50 x10E9/L 08/23/2024 10:03 AM [facility] Neutrophil % 72.7 41.0 - 74.0 % 08/23/2024 10:03 AM [facility] Lymphocyte % 17.0 17.0 - 47.0 % 08/23/2024 10:03 AM [facility] Monocyte % 8.4 3.0 - 11.0 % 08/23/2024 10:03 AM [facility] Eosinophil % 1.3 0.0 - 7.0 % 08/23/2024 10:03 AM [facility] Basophil % 0.2 0.0 - 1.6 % 08/23/2024 10:03 AM [facility] Immature Granulocytes % 0.4 0.0 - 1.0 % 08/23/2024 10:03 AM [facility] Neutrophil Absolute 3.81 1.60 - 7.50 x10E9/L 08/23/2024 10:03 AM [facility] Lymphocyte Absolute 0.89(L) 1.00 - 4.40 x10E9/L 08/23/2024 10:03 AM [facility] Monocyte Absolute 0.44 0.15 - 1.00 x10E9/L 08/23/2024 10:03 AM [facility] Eosinophil Absolute 0.07 0.00 - 0.60 x10E9/L 08/23/2024 10:03 AM [facility] Basophil Absolute 0.01 0.00 - 0.13 x10E9/L 08/23/2024 10:03 AM [facility] Blood BLOOD SPECIMEN / Unknown Venipuncture / Unknown 08/23/2024 9:40 AM ASSURANCE ANALYST 08/23/2024 9:56 AM [facility] Hussain Carias MD LAB - HEMATOLOGY ORD ERABLES [facility] [address] [place] [address], [facility] [phone] * (ABNORMAL) COMPREHENSIVE METABOLIC PANEL (08/23/2024 9:40 AM [facility]) Only the most recent of2 resultswithin the time period is included. BUN 9 7 - 26 mg/dL 08/23/2024 10:23 AM [facility] Creatinine 0.63 0.56 - 0.96 mg/dL 08/23/2024 10:23 AM [facility] Sodium 141 136 - 145 mmol/L 08/23/2024 10:23 AM [facility] Potassium 3.5 3.5 - 4.5 mmol/L 08/23/2024 10:23 AM [facility] Chloride 112(H) 98 - 107 mmol/L 08/23/2024 10:23 AM [facility] CO2 19(L) 22 - 29 mmol/L 08/23/2024 10:23 AM [facility] Glucose 155(H) 70 - 99 mg/dL 08/23/2024 10:23 AM [facility] Calcium 9.3 8.4 - 10.2 mg/dL 08/23/2024 10:23 AM [facility] Protein Total 7.0 6.0 - 8.3 g/dL 08/23/2024 10:23 AM [facility] Albumin 3.7 3.4 - 5.0 g/dL 08/23/2024 10:23 AM [facility] Bilirubin Total 0.4 0.2 - 1.2 mg/dL 08/23/2024 10:23 AM [facility] Alkaline Phosphatase 106 40 - 150 U/L 08/23/2024 10:23 AM [facility] ALT 18 5 - 55 U/L 08/23/2024 10:23 AM [facility] AST 18 5 - 34 U/L 08/23/2024 10:23 AM [facility] Anion Gap 10 6 - 16 08/23/2024 10:23 AM [facility] BUN/Creatinine Ratio 14 7 - 23 08/23/2024 10:23 AM [facility] Osmolality Calculated 294 275 - 295 mOsm/kg 08/23/2024 10:23 AM [facility] Albumin/Globulin Ratio 1.1 1.1 - 2.3 08/23/2024 10:23 AM [facility] eGFR by CKD-EPI >90 >=90 mL/min/1.7 3 m2 08/23/2024 10:23 AM [facility] Blood BLOOD SPECIMEN / Unknown Venipuncture / Unknown 08/23/2024 9:40 AM ASSURANCE ANALYST 08/23/2024 9:56 AM ASSURANCE ANALYST Hussain Carias MD LAB - CHEMISTRY ORDAzul NAIDU [address] [address], [place] [phone] * (ABNORMAL) PHOSPHORUS BLOOD (08/23/2024 9:40 AM ASSURANCE ANALYST) Only the most recent of2 resultswithin the time period is included. Phosphorus 2.6(L) 2.9 - 5.1 mg/dL 08/23/2024 10:23 AM [facility] Blood BLOOD SPECIMEN / Unknown Venipuncture / Unknown 08/23/2024 9:40 AM ASSURANCE ANALYST 08/23/2024 9:56 AM ASSURANCE ANALYST Hussain Carias MD LAB - CHEMISTRY JON NAIDU [address] [address], [facility] [phone] * MAGNESIUM BLOOD (08/23/2024 9:40 AM ASSURANCE ANALYST) Only the most recent of2 resultswithin the time period is included. Magnesium 1.9 1.6 - 2.6 mg/dL 08/23/2024 10:23 AM ASSURANCE ANALYST [facility] Blood BLOOD SPECIMEN / Unknown Venipuncture / Unknown 08/23/2024 9:40 AM ASSURANCE ANALYST 08/23/2024 9:56 AM ASSURANCE ANALYST Hussain Carias MD LAB - CHEMISTRY JON NAIDU [facility] [address] [place] [address], [facility] [phone] * XR Knee Right 3Vw (06/25/2024 12:43 PM CDT) Anatomical Region Laterality Modality Lower Extremity Digital Radiogra phy 06/25/2024 3:49 PM CDT Impressions 06/28/2024 9:54 AM CDT IMPRESSION: No acute fracture or dislocation identified. Report dictated by Sivakumar Garrido DO (cardiac cath lab radiology technologist). I, Sergio Arango MD have personally reviewed and interpreted this examination/study. > Interpreting Provider: Sergio Arango MD on 06/28/2024 9:54 AM Narrative 06/28/2024 9:54 AM CDT PROCEDURE: ??XR KNEE RIGHT 3VW, DATE/TIME OF EXAM: ??06/25/2024 12:44 PM, LOCATION ??[facility] INDICATION: M25.561: Acute pain of right [...] DATE/TIME OF EXAM: 06/25/2024 12:44 PM, LOCATION [facility] INDICATION: M25.561: Acute pain of right [...] identified. Report dictated by Sivakumar Garrido DO (cardiac cath lab radiology technologist). I, Sergio Arango MD have personally reviewed and interpreted this examination/study. > Interpreting Provider: Sergio Arango MD on 06/28/2024 9:54 AM Rossana Jay APRN-DRAFTER DETAIL DIAGNOSTIC IMAGING O RDERABLES * (ABNORMAL) URIC ACID BLOOD (06/25/2024 11:19 AM CDT) Uric Acid 6.5(H) 2.6 - 6.0 mg/dL 06/25/2024 11:56 AM CDT [facility] Blood BLOOD SPECIMEN / Unknown Venipuncture / Unknown 06/25/2024 11:19 AM CDT 06/25/2024 11:32 AM CDT Britni Winston PA-C LAB - CHEMISTRY JON NAIDU [facility] Organization Address City/State/[facility] Co de Phone Number [facility] [address] [address], [facility] [phone] * TYPE + SCREEN PANEL (06/25/2024 11:19 AM CDT) Antibody Screen NEG 12:16 PM CDT [facility] ABO Rh O POS 06/25/2024 12:16 PM CDT [facility] Blood Bank BLOOD SPECIMEN / Unknown Venipuncture / Unknown 06/25/2024 11:19 AM CDT 06/25/2024 11:35 AM CDT Britni Winston PA-C LAB - BLOOD BANK ORD ERABLES [facility] [address] [place] [address], [facility] [phone] * ERYTHROCYTE SEDIMENTATION RATE (06/25/2024 11:19 AM CDT) Pathologist [facility] Erythrocyte Sedimentation Rate Westergren 17 0 - 20 MM/HR 06/25/2024 12:25 PM CDT [facility] Blood BLOOD SPECIMEN / Unknown Venipuncture / Unknown 06/25/2024 11:19 AM CDT 06/25/2024 11:32 AM CDT Rossana LOPEZ LAB - HEMATOLOGY ORD ERABLES [address] [address], [facility] [phone] * LDH BLOOD (06/25/2024 11:19 AM CDT) [facility] LDH Total 182 125 - 243 Units/L 06/25/2024 11:56 AM CDT [facility] Blood BLOOD SPECIMEN / Unknown Venipuncture / Unknown 06/25/2024 11:19 AM CDT 06/25/2024 11:32 AM CDT Britni Winston PA-C LAB - CHEMISTRY MANJULAE ELYSIA Performing Organization Address City/[facility]/ZIP Co de Phone Number [address] [address], [facility] [phone] * HEPATITIS C AB SCREEN RFLX NAAT QUANT (09/04/2023 5:20 AM ASSURANCE ANALYST) Pathologist [facility] Hepatitis C Antibody Non-react easton Non-reac tive 09/04/2023 6:58 AM ASSURANCE ANALYST [facility] Comment:Hepatitis C Antibody screen indicates no serologic evidence of past or current infection with Hepatitis C Virus. Patients with unexplained liver disease who are immunocompromised or suspected of having acute Hepatitis C infection may benefit from Nucleic Acid Test (PRADIP) for Hepatitis C Viral RNA to confirm Hepatitis C status. Blood BLOOD SPECIMEN / Unknown Lab Venipuncture / Unknown 09/04/2023 5:20 AM ASSURANCE ANALYST 09/04/2023 6:05 AM ASSURANCE ANALYST Graham Beltran MD LAB - CHEMISTRY JON NAIDU [address] [address], [facility] [phone] * HIV-1 HIV-2 ANTIBODY + HIV P24 AG PANEL (09/04/2023 5:20 AM ASSURANCE ANALYST) HIV Antigen/Antibod y 1 & 2 Non-reacti ve Non-react easton 09/04/2023 6:59 AM ASSURANCE ANALYST [facility] Comment:No Laboratory eviden ce of HIV infection. Blood BLOOD SPECIMEN / Unknown Lab Venipuncture / Unknown 09/04/2023 5:20 AM ASSURANCE ANALYST 09/04/2023 6:05 AM ASSURANCE ANALYST Graham Beltran MD LAB - CHEMISTRY JON NAIDU Performing Organization Address City/[facility]/ZIP Co de Phone Number [address] [address], [facility] [phone] from Last 3 Months or Most Recently [...] 1:49 AM 10/09/2023 6:20 PM Care Teams Investigator Cash Shortage Relationship Specialty Start Date End Date Osmar Ragland MD [address] [place] [id number] PCP - General Family Medicine 04/19/24
--- OUTSIDE RECORDS SUMMARY | 2024-08-31 21:25 | XMS_ITS | Patient Health Summary ---
Author Organization [facility] Address [address] [place] [address] Care Team Providers Care Money Counter Name Role Phone Osmar Ragland MD Primary Care Provider [phone] Note from [facility] [place] [facility] [place]non-owned Affiliates and Associated Physician Practices is amultiple site organization consisting of ambulatory clinics and hospital sitesin [place], [place], [place] and [place]. This disclosure is being madepursuant to the Care Everywhere program and may not contain all information available regarding this patient. Last updated 18.[facility] Allergies * Vancomycin(Itching) Medications * Be aware that medications may not be up to date on this document. Alwaysverify current medications with the patient. * Carboxymethylcellulose Sodium (ARTIFICIAL TEARS OP) * famotidine (Pepcid) 20 MG tablet(Started 10/17/2023) Take 1 (one) tablet by mouth 2 times daily 1 refill by 10/16/2024 * multivitamin daily tablet Take 1 (one) tablet by mouth daily with food Womans multivitamin * folic acid (Folvite) 1 MG tablet(Started 06/01/2024) Take 1 (one) tablet by mouth once daily * acetaZOLAMIDE (Diamox) 250 MG tablet(Started 08/23/2024) Take 1 (one) tablet by mouth 2 times daily 3 refills by 08/23/2025 Ended Medications* valACYclovir (Valtrex) 500 MG tablet(Started 11/03/2023) (Discontinued) Take 1 (one) tablet by mouth 2 times daily 11 refills by 11/02/2024 * acetaZOLAMIDE (Diamox) 250 MG tablet(Started 03/05/2024)(Discontinued) Take 1 (one) tablet by mouth 2 times daily Active Problems Problem Noted Date Diagnosed Date [...] Resolved Date Febrile neutropenia 09/27/2023 10/11/19 24 Immunizations * INFLUENZA VACCINE, QUADR. (FLUZONE; FLULAVAL; FLUARIX; AFLURIA QUADRIVALENT; 6MO+), 0.5 ML (IIV4)(Given 07/18/2020) Social History Tobacco Use Types Packs/Day Years [...] Recorded Patient Health Questionnaire-2 Score 0 03/03/2024 [facility] - Occupational Stress [...] place to sleep or slept in a [place] facility (including now)? No 01/19/2024 Sex and Gender Information Value Date Recorded Sex Assigned at Not on file Gender Identity Female 02/13/2024 1:12 PM CDT Sexual Orientation Not on file Last Filed Vital Signs Vital Sign Reading Time Taken Comments Blood Pressure 136/93 08/23/2024 9:57 AM [employer] Pulse 90 08/23/2024 9:57 AM [employer] Temperature 36.7 ??C (98.1 ??F) 08/23/2024 9:57 AM CS T Respiratory Rate 18 08/23/2024 9:57 AM [employer] Oxygen Saturation 97% 08/23/2024 9:57 AM [employer] Inhaled Oxygen Concentration 21% 09/16/2023 4 :17 AM [employer] Weight 117.3 kg (258 lb 11.2 oz) 08/23/2024 9:57 AM [employer] Height 157.5 cm (5' 2 ) 08/23/2024 9:57 AM [employer] Body Mass Index 47.32 08/23/2024 9:57 AM [employer] Medical Devices Implanted Type Area Gear Design Engineer Device Identifier Shelf Expiration Date Model / Serial / Lot Tray Cath 12fr 19cm Hkmn Trifusion 3 Lum Implanted:Qty: 1 on 09/05/2023 at [facility] Right: Chest [employer] 11/12/2024 [id number] / / [id number] Description:Dr. 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) * XR KNEE RIGHT 3VW(Performed 06/25/2024) Performed for Acute pain of right knee * TYPE + SCREEN PANEL(Performed 06/25/2024) 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) * ERYTHROCYTE SEDIMENTATION RATE(Performed 06/25/2024) Performed for Acute pain of right knee * NPM1 MUTATION DETECTION PCR(Performed 06/25/2024) Performed for 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sion (HCC) * URIC ACID BLOOD(Performed 06/25/2024) 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) * LDH BLOOD(Performed 06/25/2024) 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) * CBC W AUTO DIFFERENTIAL(Performed 06/25/2024) 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) * MAGNESIUM BLOOD(Performed 06/25/2024) 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) * COMPREHENSIVE METABOLIC PANEL(Performed 06/25/2024) 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) * PHOSPHORUS BLOOD(Performed 06/25/2024) 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) * PHOSPHORUS BLOOD(Performed 04/30/2024) 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) * MAGNESIUM BLOOD(Performed 04/30/2024) 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) * COMPREHENSIVE METABOLIC PANEL(Performed 04/30/2024) 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) * CBC W AUTO DIFFERENTIAL(Performed 04/30/2024) 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) * NPM1 MUTATION DETECTION PCR(Performed 04/30/2024) 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) * AR US PELVIC NONOB REAL-TIME IMG COMPLETE(Performed 04/19/2024) Performed for Dermoid cyst of left ovary, Abnormal uterine bleeding (AUB), Hematometra * AR SONO EXAM, TRANSVAGINAL(Performed 04/19/2024) Performed for Dermoid cyst of left ovary, Abnormal uterine bleeding (AUB), Hematometra * IMAGING/RADIOLOGY/XRAY RESULTS ORDER(Performed 04/19/2024) * IMAGING/RADIOLOGY/XRAY RESULTS ORDER(Performed 04/19/2024) Performed for Dermoid cyst of left ovary, Abnormal uterine bleeding (AUB), Hematometra * FOLATE(Performed 03/31/2024) Performed for Pancytopenia due to chemotherapy (HCC) * COPPER BLOOD(Performed 03/31/2024) Performed for Pancytopenia due to chemotherapy (HCC) * TYPE + SCREEN PANEL(Performed 03/31/2024) 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) * VITAMIN B12(Performed 03/31/2024) Performed for Pancytopenia due to chemotherapy (HCC) * URIC ACID BLOOD(Performed 03/31/2024) 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) * LDH BLOOD(Performed 03/31/2024) 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) * CBC W AUTO DIFFERENTIAL(Performed 03/31/2024) 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) * MAGNESIUM BLOOD(Performed 03/31/2024) 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) * COMPREHENSIVE METABOLIC PANEL(Performed 03/31/2024) 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) * PHOSPHORUS BLOOD(Performed 03/31/2024) 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) * TYPE + SCREEN PANEL(Performed 03/22/2024) 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) * PHOSPHORUS BLOOD(Performed 03/22/2024) 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) * MAGNESIUM BLOOD(Performed 03/22/2024) 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) * COMPREHENSIVE METABOLIC PANEL(Performed 03/22/2024) 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) * CBC W AUTO DIFFERENTIAL(Performed 03/22/2024) 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) * RETINAL ANALYSIS OCT(Performed 03/22/2024) Performed for Papilledema associated with increased intracranial pressure * IR CENTRAL LINE REMOVAL(Performed 03/03/2024) 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) * HCG URINE QUALITATIVE - POCT (IP) INTERFACED(Performed 03/03/2024) * HCG URINE QUAL POCT NOTIFICATION(Performed 03/03/2024) Performed for Pre-procedure lab exam * RETINAL ANALYSIS OCT(Performed 03/02/2024) Performed for IIH (idiopathic intracranial hypertension) * TYPE + SCREEN PANEL(Performed 02/26/2024) 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) * SLIDE SCAN HEMATOLOGY(Performed 02/26/2024) 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) * NPM1 MUTATION DETECTION PCR(Performed 02/26/2024) 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) * URIC ACID BLOOD(Performed 02/26/2024) 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) * LDH BLOOD(Performed 02/26/2024) 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) * CBC W AUTO DIFFERENTIAL(Performed 02/26/2024) 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) * MAGNESIUM BLOOD(Performed 02/26/2024) 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) * COMPREHENSIVE METABOLIC PANEL(Performed 02/26/2024) 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) * PHOSPHORUS BLOOD(Performed 02/26/2024) 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) * SLIDE SCAN HEMATOLOGY(Performed 02/20/2024) 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) * URIC ACID BLOOD(Performed 02/20/2024) 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) * LDH BLOOD(Performed 02/20/2024) 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) * CBC W AUTO DIFFERENTIAL(Performed 02/20/2024) 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) * MAGNESIUM BLOOD(Performed 02/20/2024) 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) * COMPREHENSIVE METABOLIC PANEL(Performed 02/20/2024) 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) * PHOSPHORUS BLOOD(Performed 02/20/2024) 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) * SLIDE SCAN HEMATOLOGY(Performed 02/13/2024) 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) * URIC ACID BLOOD(Performed 02/13/2024) 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) * LDH BLOOD(Performed 02/13/2024) 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) * CBC W AUTO DIFFERENTIAL(Performed 02/13/2024) 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) * MAGNESIUM BLOOD(Performed 02/13/2024) 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) * COMPREHENSIVE METABOLIC PANEL(Performed 02/13/2024) 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) * PHOSPHORUS BLOOD(Performed 02/13/2024) 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) * TYPE + SCREEN PANEL(Performed 02/10/2024) 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) * CBC W AUTO DIFFERENTIAL(Performed 02/10/2024) 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) * MAGNESIUM BLOOD(Performed 02/10/2024) 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) * COMPREHENSIVE METABOLIC PANEL(Performed 02/10/2024) 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) * PHOSPHORUS BLOOD(Performed 02/10/2024) 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) * TRANSFUSE RED BLOOD CELL LEUKOREDUCED UNIT(S)(Performed 02/06/2024) * PREPARE RBC LEUKOREDUCED UNIT(Performed 02/06/2024) * TYPE + SCREEN PANEL(Performed 02/06/2024) 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) * LDH BLOOD(Performed 02/06/2024) 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) * CBC W AUTO DIFFERENTIAL(Performed 02/06/2024) 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) * MAGNESIUM BLOOD(Performed 02/06/2024) 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) * COMPREHENSIVE METABOLIC PANEL(Performed 02/06/2024) 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) * PHOSPHORUS BLOOD(Performed 02/06/2024) 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) * TYPE + SCREEN PANEL(Performed 02/02/2024) 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) * DIFFERENTIAL MANUAL(Performed 02/02/2024) 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) * URIC ACID BLOOD(Performed 02/02/2024) 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) * LDH BLOOD(Performed 02/02/2024) 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) * CBC W AUTO DIFFERENTIAL(Performed 02/02/2024) 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) * MAGNESIUM BLOOD(Performed 02/02/2024) 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) * COMPREHENSIVE METABOLIC PANEL(Performed 02/02/2024) 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) * PHOSPHORUS BLOOD(Performed 02/02/2024) 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) * TYPE + SCREEN PANEL(Performed 01/30/2024) 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) * DIFFERENTIAL MANUAL(Performed 01/30/2024) 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) * CBC W AUTO DIFFERENTIAL(Performed 01/30/2024) 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) * MAGNESIUM BLOOD(Performed 01/30/2024) 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) * COMPREHENSIVE METABOLIC PANEL(Performed 01/30/2024) 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) * PHOSPHORUS BLOOD(Performed 01/30/2024) 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) * PLATELET COUNT AUTO(Performed 01/28/2024) 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), Ovarian mass * TRANSFUSE PLATELET PHERESIS UNIT(S)(Performed 01/28/2024) * HCG URINE QUALITATIVE(Performed 01/28/2024) 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) * PREPARE PLATELET PHERESIS UNIT(S)(Performed 01/28/2024) * TYPE + SCREEN PANEL(Performed 01/28/2024) 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) * DIFFERENTIAL MANUAL(Performed 01/28/2024) 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) * URIC ACID BLOOD(Performed 01/28/2024) 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) * LDH BLOOD(Performed 01/28/2024) 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) * CBC W AUTO DIFFERENTIAL(Performed 01/28/2024) 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) * MAGNESIUM BLOOD(Performed 01/28/2024) 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) * COMPREHENSIVE METABOLIC PANEL(Performed 01/28/2024) 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) * PHOSPHORUS BLOOD(Performed 01/28/2024) 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) * PLATELET COUNT AUTO(Performed 01/26/2024) 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) * TRANSFUSE PLATELET PHERESIS UNIT(S)(Performed 01/26/2024) * PREPARE PLATELET PHERESIS UNIT(S)(Performed 01/26/2024) * TYPE + SCREEN PANEL(Performed 01/26/2024) 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) * DIFFERENTIAL MANUAL(Performed 01/26/2024) 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) * URIC ACID BLOOD(Performed 01/26/2024) 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) * LDH BLOOD(Performed 01/26/2024) 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) * CBC W AUTO DIFFERENTIAL(Performed 01/26/2024) 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) * MAGNESIUM BLOOD(Performed 01/26/2024) 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) * COMPREHENSIVE METABOLIC PANEL(Performed 01/26/2024) 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) * PHOSPHORUS BLOOD(Performed 01/26/2024) 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) * DIFFERENTIAL MANUAL(Performed 01/23/2024) * CBC W AUTO DIFFERENTIAL(Performed 01/23/2024) * BASIC METABOLIC PANEL (CALCIUM TOTAL)(Performed 01/23/2024) * MAGNESIUM BLOOD(Performed 01/23/2024) * PHOSPHORUS BLOOD(Performed 01/23/2024) * CBC W/O DIFFERENTIAL(Performed 01/22/2024) * TRANSFUSE PLATELET PHERESIS UNIT(S)(Performed 01/22/2024) * PREPARE PLATELET PHERESIS UNIT(S)(Performed 01/22/2024) * DIFFERENTIAL MANUAL(Performed 01/22/2024) * MAGNESIUM BLOOD(Performed 01/22/2024) * PHOSPHORUS BLOOD(Performed 01/22/2024) * BASIC METABOLIC PANEL (CALCIUM TOTAL)(Performed 01/22/2024) * CBC W AUTO DIFFERENTIAL(Performed 01/22/2024) * DIFFERENTIAL MANUAL(Performed 01/21/2024) * MAGNESIUM BLOOD(Performed 01/21/2024) * PHOSPHORUS BLOOD(Performed 01/21/2024) * BASIC METABOLIC PANEL (CALCIUM TOTAL)(Performed 01/21/2024) * CBC W AUTO DIFFERENTIAL(Performed 01/21/2024) * HEMOGLOBIN(Performed 01/20/2024) * TRANSFUSE RED BLOOD CELL LEUKOREDUCED UNIT(S)(Performed 01/20/2024) * PREPARE RBC LEUKOREDUCED UNIT(Performed 01/20/2024) * TRANSFUSE PLATELET PHERESIS UNIT(S)(Performed 01/20/2024) * PREPARE PLATELET PHERESIS UNIT(S)(Performed 01/20/2024) * TYPE + SCREEN PANEL(Performed 01/20/2024) * DIFFERENTIAL MANUAL(Performed 01/20/2024) * C-REACTIVE PROTEIN(Performed 01/20/2024) * MAGNESIUM BLOOD(Performed 01/20/2024) * PHOSPHORUS BLOOD(Performed 01/20/2024) * BASIC METABOLIC PANEL (CALCIUM TOTAL)(Performed 01/20/2024) * CBC W AUTO DIFFERENTIAL(Performed 01/20/2024) * CT CHEST PE W ABD PELVIS W CONT(Performed 01/19/2024) Performed for 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sion (HCC) * PATHOLOGY PERIPHERAL SMEAR REVIEW(Performed 01/19/2024) * DIFFERENTIAL MANUAL(Performed 01/19/2024) * PHOSPHORUS BLOOD(Performed 01/19/2024) * MAGNESIUM BLOOD(Performed 01/19/2024) * BASIC METABOLIC PANEL (CALCIUM TOTAL)(Performed 01/19/2024) * CBC W AUTO DIFFERENTIAL(Performed 01/19/2024) * PLATELET COUNT AUTO(Performed 01/19/2024) Performed for Acute hypoxic respiratory failure (HCC) * CULTURE BLOOD(Performed 01/19/2024) Performed for Abscess, perianal * CULTURE BLOOD(Performed 01/19/2024) Performed for Abscess, perianal * PREPARE RBC LEUKOREDUCED UNIT(Performed 01/19/2024) * EKG 12-LEAD(Performed 01/19/2024) Performed for Tachycardia * TRANSFUSE PLATELET PHERESIS UNIT(S)(Performed 01/19/2024) Performed for Acute hypoxic respiratory failure (HCC) * PREPARE PLATELET PHERESIS UNIT(S)(Performed 01/19/2024) Performed for Acute hypoxic respiratory failure (HCC) * TYPE + SCREEN PANEL(Performed 01/19/2024) 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) * URIC ACID BLOOD(Performed 01/19/2024) 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) * LDH BLOOD(Performed 01/19/2024) 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) * CBC W AUTO DIFFERENTIAL(Performed 01/19/2024) 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) * MAGNESIUM BLOOD(Performed 01/19/2024) 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) * COMPREHENSIVE METABOLIC PANEL(Performed 01/19/2024) 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) * PHOSPHORUS BLOOD(Performed 01/19/2024) 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) * PREPARE PLATELET PHERESIS UNIT(S)(Performed 01/18/2024) Performed for Pancytopenia due to chemotherapy (HCC) * PREPARE PLATELET PHERESIS UNIT(S)(Performed 01/18/2024) * VAS BILATERAL VENOUS DUPLEX UE(Performed 01/16/2024) 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) * VAS BILATERAL VENOUS DUPLEX LE(Performed 01/16/2024) 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) * CT ABDOMEN PELVIS W CONTRAST(Performed 01/16/2024) 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) * PLATELET COUNT AUTO(Performed 01/16/2024) 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) * TRANSFUSE PLATELET PHERESIS UNIT(S)(Performed 01/16/2024) * PREPARE PLATELET PHERESIS UNIT(S)(Performed 01/16/2024) * TYPE + SCREEN PANEL(Performed 01/16/2024) 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) * URIC ACID BLOOD(Performed 01/16/2024) 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) * LDH BLOOD(Performed 01/16/2024) 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) * CBC W AUTO DIFFERENTIAL(Performed 01/16/2024) 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) * MAGNESIUM BLOOD(Performed 01/16/2024) 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) * COMPREHENSIVE METABOLIC PANEL(Performed 01/16/2024) 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) * PHOSPHORUS BLOOD(Performed 01/16/2024) 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) * PLATELET COUNT AUTO(Performed 01/14/2024) Performed for Pancytopenia due to chemotherapy (HCC) * TRANSFUSE PLATELET PHERESIS UNIT(S)(Performed 01/14/2024) * PREPARE PLATELET PHERESIS UNIT(S)(Performed 01/14/2024) * TYPE + SCREEN PANEL(Performed 01/14/2024) 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) * URIC ACID BLOOD(Performed 01/14/2024) 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) * LDH BLOOD(Performed 01/14/2024) 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) * CBC W AUTO DIFFERENTIAL(Performed 01/14/2024) 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) * MAGNESIUM BLOOD(Performed 01/14/2024) 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) * COMPREHENSIVE METABOLIC PANEL(Performed 01/14/2024) 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) * PHOSPHORUS BLOOD(Performed 01/14/2024) 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) * PREPARE PLATELET PHERESIS UNIT(S)(Performed 01/12/2024) 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) * TRANSFUSE RED BLOOD CELL LEUKOREDUCED UNIT(S)(Performed 01/12/2024) 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) * PREPARE RBC LEUKOREDUCED UNIT(Performed 01/12/2024) 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) * TYPE + SCREEN PANEL(Performed 01/12/2024) 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) * URIC ACID BLOOD(Performed 01/12/2024) 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) * LDH BLOOD(Performed 01/12/2024) 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) * CBC W AUTO DIFFERENTIAL(Performed 01/12/2024) 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) * MAGNESIUM BLOOD(Performed 01/12/2024) 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) * COMPREHENSIVE METABOLIC PANEL(Performed 01/12/2024) 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) * PHOSPHORUS BLOOD(Performed 01/12/2024) 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) * PLATELET COUNT AUTO(Performed 01/09/2024) 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) * TRANSFUSE PLATELET PHERESIS UNIT(S)(Performed 01/09/2024) * PREPARE PLATELET PHERESIS UNIT(S)(Performed 01/09/2024) * HCG BETA BLOOD QUANTITATIVE(Performed 01/09/2024) 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) * URIC ACID BLOOD(Performed 01/09/2024) 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) * LDH BLOOD(Performed 01/09/2024) 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) * CBC W AUTO DIFFERENTIAL(Performed 01/09/2024) 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) * MAGNESIUM BLOOD(Performed 01/09/2024) 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) * COMPREHENSIVE METABOLIC PANEL(Performed 01/09/2024) 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) * PHOSPHORUS BLOOD(Performed 01/09/2024) 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) * PLATELET COUNT AUTO(Performed 01/07/2024) 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) * TRANSFUSE PLATELET PHERESIS UNIT(S)(Performed 01/07/2024) * PREPARE PLATELET PHERESIS UNIT(S)(Performed 01/07/2024) * TRANSFUSE PLATELET PHERESIS UNIT(S)(Performed 01/07/2024) * PREPARE PLATELET PHERESIS UNIT(S)(Performed 01/07/2024) * TYPE + SCREEN PANEL(Performed 01/07/2024) 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) * DIFFERENTIAL MANUAL(Performed 01/07/2024) 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) * URIC ACID BLOOD(Performed 01/07/2024) 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) * LDH BLOOD(Performed 01/07/2024) 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) * CBC W AUTO DIFFERENTIAL(Performed 01/07/2024) 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) * MAGNESIUM BLOOD(Performed 01/07/2024) 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) * COMPREHENSIVE METABOLIC PANEL(Performed 01/07/2024) 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) * PHOSPHORUS BLOOD(Performed 01/07/2024) 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) * GLUCOSE - POINT OF CARE(Performed 01/04/2024) * TRANSFUSE RED BLOOD CELL LEUKOREDUCED UNIT(S)(Performed 01/04/2024) * PREPARE RBC LEUKOREDUCED UNIT(Performed 01/04/2024) * TYPE + SCREEN PANEL(Performed 01/04/2024) * GLUCOSE - POINT OF CARE(Performed 01/04/2024) * DIFFERENTIAL MANUAL(Performed 01/03/2024) 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) * PHOSPHORUS BLOOD(Performed 01/03/2024) 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) * MAGNESIUM BLOOD(Performed 01/03/2024) 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) * CBC W AUTO DIFFERENTIAL(Performed 01/03/2024) 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) * COMPREHENSIVE METABOLIC PANEL(Performed 01/03/2024) 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) * GLUCOSE - POINT OF CARE(Performed 01/03/2024) * GLUCOSE - POINT OF CARE(Performed 01/03/2024) * GLUCOSE - POINT OF CARE(Performed 01/03/2024) * GLUCOSE - POINT OF CARE(Performed 01/03/2024) * GLUCOSE - POINT OF CARE(Performed 01/02/2024) * PHOSPHORUS BLOOD(Performed 01/02/2024) 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) * MAGNESIUM BLOOD(Performed 01/02/2024) 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) * CBC W AUTO DIFFERENTIAL(Performed 01/02/2024) 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) * COMPREHENSIVE METABOLIC PANEL(Performed 01/02/2024) 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) * GLUCOSE - POINT OF CARE(Performed 01/02/2024) * GLUCOSE - POINT OF CARE(Performed 01/02/2024) * GLUCOSE - POINT OF CARE(Performed 01/02/2024) * HEMOGLOBIN A1C(Performed 01/02/2024) * GLUCOSE - POINT OF CARE(Performed 01/01/2024) * PHOSPHORUS BLOOD(Performed 01/01/2024) 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) * MAGNESIUM BLOOD(Performed 01/01/2024) 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) * CBC W AUTO DIFFERENTIAL(Performed 01/01/2024) 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) * COMPREHENSIVE METABOLIC PANEL(Performed 01/01/2024) 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) * GLUCOSE - POINT OF CARE(Performed 01/01/2024) * GLUCOSE - POINT OF CARE(Performed 01/01/2024) * GLUCOSE - POINT OF CARE(Performed 01/01/2024) * CT HEAD WO CONTRAST(Performed 01/01/2024) Performed for Fall, initial encounter * TRANSFUSE RED BLOOD CELL LEUKOREDUCED UNIT(S)(Performed 01/01/2024) * PREPARE RBC LEUKOREDUCED UNIT(Performed 01/01/2024) * TYPE + SCREEN PANEL(Performed 12/31/2023) * PHOSPHORUS BLOOD(Performed 12/31/2023) 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) * MAGNESIUM BLOOD(Performed 12/31/2023) 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) * CBC W AUTO DIFFERENTIAL(Performed 12/31/2023) 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) * COMPREHENSIVE METABOLIC PANEL(Performed 12/31/2023) 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) * PHOSPHORUS BLOOD(Performed 12/30/2023) 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) * MAGNESIUM BLOOD(Performed 12/30/2023) 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) * CBC W AUTO DIFFERENTIAL(Performed 12/30/2023) 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) * COMPREHENSIVE METABOLIC PANEL(Performed 12/30/2023) 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) * EKG 12-LEAD(Performed 12/30/2023) Performed for Tachycardia * GLUCOSE - POINT OF CARE(Performed 12/30/2023) * PLATELET COUNT AUTO CITRATED BLOOD(Performed 12/30/2023) 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) * TYPE + SCREEN PANEL(Performed 12/30/2023) 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) * URIC ACID BLOOD(Performed 12/30/2023) 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) * LDH BLOOD(Performed 12/30/2023) 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) * CBC W AUTO DIFFERENTIAL(Performed 12/30/2023) 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) * MAGNESIUM BLOOD(Performed 12/30/2023) 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) * COMPREHENSIVE METABOLIC PANEL(Performed 12/30/2023) 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) * PHOSPHORUS BLOOD(Performed 12/30/2023) 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) * DIFFERENTIAL MANUAL(Performed 12/24/2023) 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) * PHOSPHORUS BLOOD(Performed 12/24/2023) 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) * MAGNESIUM BLOOD(Performed 12/24/2023) 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) * COMPREHENSIVE METABOLIC PANEL(Performed 12/24/2023) 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) * CBC W AUTO DIFFERENTIAL(Performed 12/24/2023) 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) * PLATELET COUNT AUTO(Performed 12/22/2023) 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) * TRANSFUSE PLATELET PHERESIS UNIT(S)(Performed 12/22/2023) 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) * PREPARE PLATELET PHERESIS UNIT(S)(Performed 12/22/2023) 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) * TYPE + SCREEN PANEL(Performed 12/22/2023) 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) * DIFFERENTIAL MANUAL(Performed 12/22/2023) 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) * PHOSPHORUS BLOOD(Performed 12/22/2023) 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) * MAGNESIUM BLOOD(Performed 12/22/2023) 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) * COMPREHENSIVE METABOLIC PANEL(Performed 12/22/2023) 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) * CBC W AUTO DIFFERENTIAL(Performed 12/22/2023) 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) * TRANSFUSE RED BLOOD CELL LEUKOREDUCED UNIT(S)(Performed 12/19/2023) * PREPARE RBC LEUKOREDUCED UNIT(Performed 12/19/2023) * PLATELET COUNT AUTO(Performed 12/19/2023) 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) * XR CHEST 1VW PORTABLE(Performed 12/19/2023) Performed for Wheezing * TRANSFUSE PLATELET PHERESIS UNIT(S)(Performed 12/19/2023) * PREPARE PLATELET PHERESIS UNIT(S)(Performed 12/19/2023) * RESPIRATORY PANEL WITH SARS-COV-2 BY PCR (STL)(Performed 12/19/2023) 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) * PATHOLOGY PERIPHERAL SMEAR REVIEW(Performed 12/19/2023) 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) * TYPE + SCREEN PANEL(Performed 12/19/2023) 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) * DIFFERENTIAL MANUAL(Performed 12/19/2023) 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) * URIC ACID BLOOD(Performed 12/19/2023) 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) * LDH BLOOD(Performed 12/19/2023) 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) * CBC W AUTO DIFFERENTIAL(Performed 12/19/2023) 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) * MAGNESIUM BLOOD(Performed 12/19/2023) 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) * COMPREHENSIVE METABOLIC PANEL(Performed 12/19/2023) 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) * PHOSPHORUS BLOOD(Performed 12/19/2023) 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) * PREPARE RBC LEUKOREDUCED UNIT(Performed 12/19/2023) * US EXTREMITY LEFT LTD NONVASC(Performed 12/17/2023) 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) * URIC ACID BLOOD(Performed 12/17/2023) Performed for Acute myeloid leukemia in remission (HCC) * LDH BLOOD(Performed 12/17/2023) Performed for Acute myeloid leukemia in remission (HCC) * CBC W AUTO DIFFERENTIAL(Performed 12/17/2023) 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) * MAGNESIUM BLOOD(Performed 12/17/2023) Performed for Acute myeloid leukemia in remission (HCC) * COMPREHENSIVE METABOLIC PANEL(Performed 12/17/2023) 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) * PHOSPHORUS BLOOD(Performed 12/17/2023) Performed for Acute myeloid leukemia in remission (HCC) * PLATELET COUNT AUTO(Performed 12/15/2023) Performed for Acute myeloid leukemia in remission (HCC) * PREPARE RBC LEUKOREDUCED UNIT(Performed 12/15/2023) * TRANSFUSE PLATELET PHERESIS UNIT(S)(Performed 12/15/2023) * PREPARE PLATELET PHERESIS UNIT(S)(Performed 12/15/2023) * TYPE + SCREEN PANEL(Performed 12/15/2023) 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) * URIC ACID BLOOD(Performed 12/15/2023) Performed for Acute myeloid leukemia in remission (HCC) * LDH BLOOD(Performed 12/15/2023) Performed for Acute myeloid leukemia in remission (HCC) * CBC W AUTO DIFFERENTIAL(Performed 12/15/2023) Performed for Acute myeloid leukemia in remission (HCC) * MAGNESIUM BLOOD(Performed 12/15/2023) Performed for Acute myeloid leukemia in remission (HCC) * COMPREHENSIVE METABOLIC PANEL(Performed 12/15/2023) 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) * PHOSPHORUS BLOOD(Performed 12/15/2023) Performed for Acute myeloid leukemia in remission (HCC) * PLATELET COUNT AUTO(Performed 12/12/2023) Performed for Acute myeloid leukemia in remission (HCC) * TRANSFUSE PLATELET PHERESIS UNIT(S)(Performed 12/12/2023) * PREPARE PLATELET PHERESIS UNIT(S)(Performed 12/12/2023) * TYPE + SCREEN PANEL(Performed 12/12/2023) 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) * URIC ACID BLOOD(Performed 12/12/2023) Performed for Acute myeloid leukemia in remission (HCC) * LDH BLOOD(Performed 12/12/2023) Performed for Acute myeloid leukemia in remission (HCC) * CBC W AUTO DIFFERENTIAL(Performed 12/12/2023) Performed for Acute myeloid leukemia in remission (HCC) * MAGNESIUM BLOOD(Performed 12/12/2023) 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) * COMPREHENSIVE METABOLIC PANEL(Performed 12/12/2023) 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) * PHOSPHORUS BLOOD(Performed 12/12/2023) Performed for Acute myeloid leukemia in remission (HCC) * PLATELET COUNT AUTO(Performed 12/10/2023) Performed for Acute myeloid leukemia in remission (HCC) * TRANSFUSE PLATELET PHERESIS UNIT(S)(Performed 12/10/2023) * PREPARE PLATELET PHERESIS UNIT(S)(Performed 12/10/2023) * PHOSPHORUS BLOOD(Performed 12/10/2023) 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) * MAGNESIUM BLOOD(Performed 12/10/2023) Performed for Acute myeloid leukemia in remission (HCC) * COMPREHENSIVE METABOLIC PANEL(Performed 12/10/2023) Performed for Acute myeloid leukemia in remission (HCC) * CBC W AUTO DIFFERENTIAL(Performed 12/10/2023) Performed for Acute myeloid leukemia in remission (HCC) * PLATELET COUNT AUTO(Performed 12/08/2023) Performed for Acute myeloid leukemia in remission (HCC) * TRANSFUSE PLATELET PHERESIS UNIT(S)(Performed 12/08/2023) Performed for Acute myeloid leukemia in remission (HCC) * PREPARE PLATELET PHERESIS UNIT(S)(Performed 12/08/2023) Performed for Acute myeloid leukemia in remission (HCC) * DIFFERENTIAL MANUAL(Performed 12/08/2023) Performed for Acute myeloid leukemia in remission (HCC) * MAGNESIUM BLOOD(Performed 12/08/2023) Performed for Acute myeloid leukemia in remission (HCC) * COMPREHENSIVE METABOLIC PANEL(Performed 12/08/2023) Performed for Acute myeloid leukemia in remission (HCC) * CBC W AUTO DIFFERENTIAL(Performed 12/08/2023) Performed for Acute myeloid leukemia in remission (HCC) * URIC ACID BLOOD(Performed 12/08/2023) Performed for Acute myeloid leukemia in remission (HCC) * LDH BLOOD(Performed 12/08/2023) Performed for Acute myeloid leukemia in remission (HCC) * PHOSPHORUS BLOOD(Performed 12/08/2023) Performed for Acute myeloid leukemia in remission (HCC) * TYPE + SCREEN PANEL(Performed 12/08/2023) Performed for Acute myeloid leukemia in remission (HCC) * CBC W/O DIFFERENTIAL(Performed 12/06/2023) * TRANSFUSE RED BLOOD CELL LEUKOREDUCED UNIT(S)(Performed 12/06/2023) * PREPARE RBC LEUKOREDUCED UNIT(Performed 12/06/2023) * TYPE + SCREEN PANEL(Performed 12/06/2023) * PHOSPHORUS BLOOD(Performed 12/05/2023) 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) * MAGNESIUM BLOOD(Performed 12/05/2023) Performed for Acute myeloid leukemia in remission (HCC) * COMPREHENSIVE METABOLIC PANEL(Performed 12/05/2023) Performed for Acute myeloid leukemia in remission (HCC) * CBC W AUTO DIFFERENTIAL(Performed 12/05/2023) Performed for Acute myeloid leukemia in remission (HCC) * PHOSPHORUS BLOOD(Performed 12/04/2023) Performed for Acute myeloid leukemia in remission (HCC) * MAGNESIUM BLOOD(Performed 12/04/2023) Performed for Acute myeloid leukemia in remission (HCC) * COMPREHENSIVE METABOLIC PANEL(Performed 12/04/2023) Performed for Acute myeloid leukemia in remission (HCC) * CBC W AUTO DIFFERENTIAL(Performed 12/04/2023) Performed for Acute myeloid leukemia in remission (HCC) * PHOSPHORUS BLOOD(Performed 12/03/2023) Performed for Acute myeloid leukemia in remission (HCC) * MAGNESIUM BLOOD(Performed 12/03/2023) Performed for Acute myeloid leukemia in remission (HCC) * COMPREHENSIVE METABOLIC PANEL(Performed 12/03/2023) Performed for Acute myeloid leukemia in remission (HCC) * CBC W AUTO DIFFERENTIAL(Performed 12/03/2023) Performed for Acute myeloid leukemia in remission (HCC) * TYPE + SCREEN PANEL(Performed 12/02/2023) * PHOSPHORUS BLOOD(Performed 12/02/2023) Performed for Acute myeloid leukemia in remission (HCC) * MAGNESIUM BLOOD(Performed 12/02/2023) Performed for Acute myeloid leukemia in remission (HCC) * COMPREHENSIVE METABOLIC PANEL(Performed 12/02/2023) Performed for Acute myeloid leukemia in remission (HCC) * CBC W AUTO DIFFERENTIAL(Performed 12/02/2023) Performed for Acute myeloid leukemia in remission (HCC) * PT EVAL AND TREAT(Performed 12/01/2023) * TYPE + SCREEN PANEL(Performed 12/01/2023) Performed for Acute myeloid leukemia in remission (HCC) * HCG URINE QUALITATIVE(Performed 12/01/2023) Performed for Acute myeloid leukemia in remission (HCC) * URINALYSIS W/MICROSCOPIC REFLEX TO CULTURE(Performed 12/01/2023) Performed for Acute myeloid leukemia in remission (HCC) * URIC ACID BLOOD(Performed 12/01/2023) Performed for Acute myeloid leukemia in remission (HCC) * LDH BLOOD(Performed 12/01/2023) Performed for Acute myeloid leukemia in remission (HCC) * CBC W AUTO DIFFERENTIAL(Performed 12/01/2023) Performed for Acute myeloid leukemia in remission (HCC) * MAGNESIUM BLOOD(Performed 12/01/2023) Performed for Acute myeloid leukemia in remission (HCC) * COMPREHENSIVE METABOLIC PANEL(Performed 12/01/2023) Performed for Acute myeloid leukemia in remission (HCC) * PHOSPHORUS BLOOD(Performed 12/01/2023) Performed for Acute myeloid leukemia in remission (HCC) * CULTURE URINE(Performed 12/01/2023) Performed for Acute myeloid leukemia in remission (HCC) * TYPE + SCREEN PANEL(Performed 11/28/2023) Performed for Acute myeloid leukemia in remission (HCC) * T4 FREE(Performed 11/28/2023) Performed for Thyroid nodule * TSH(Performed 11/28/2023) Performed for Thyroid nodule * URIC ACID BLOOD(Performed 11/28/2023) 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) * LDH BLOOD(Performed 11/28/2023) Performed for Acute myeloid leukemia in remission (HCC) * CBC W AUTO DIFFERENTIAL(Performed 11/28/2023) Performed for Acute myeloid leukemia in remission (HCC) * MAGNESIUM BLOOD(Performed 11/28/2023) Performed for Acute myeloid leukemia in remission (HCC) * COMPREHENSIVE METABOLIC PANEL(Performed 11/28/2023) Performed for Acute myeloid leukemia in remission (HCC) * PHOSPHORUS BLOOD(Performed 11/28/2023) Performed for Acute myeloid leukemia in remission (HCC) * DIFFERENTIAL MANUAL(Performed 11/26/2023) Performed for Acute myeloid leukemia in remission (HCC) * URIC ACID BLOOD(Performed 11/26/2023) Performed for Acute myeloid leukemia in remission (HCC) * LDH BLOOD(Performed 11/26/2023) Performed for Acute myeloid leukemia in remission (HCC) * CBC W AUTO DIFFERENTIAL(Performed 11/26/2023) Performed for Acute myeloid leukemia in remission (HCC) * MAGNESIUM BLOOD(Performed 11/26/2023) Performed for Acute myeloid 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) * COMPREHENSIVE METABOLIC PANEL(Performed 11/26/2023) Performed for Acute myeloid leukemia in remission (HCC) * PHOSPHORUS BLOOD(Performed 11/26/2023) Performed for Acute myeloid leukemia in remission (HCC) * CT FACIAL BONES WO CONTRAST(Performed 11/24/2023) Performed for Acute myeloid leukemia in remission (HCC) * TYPE + SCREEN PANEL(Performed 11/24/2023) Performed for Acute myeloid leukemia in remission (HCC) * TRANSFUSE RED BLOOD CELL LEUKOREDUCED UNIT(S)(Performed 11/24/2023) * PLATELET COUNT AUTO(Performed 11/24/2023) 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) * PREPARE RBC LEUKOREDUCED UNIT(Performed 11/24/2023) * TRANSFUSE PLATELET PHERESIS UNIT(S)(Performed 11/24/2023) * PREPARE PLATELET PHERESIS UNIT(S)(Performed 11/24/2023) * DIFFERENTIAL MANUAL(Performed 11/24/2023) Performed for Acute myeloid leukemia in remission (HCC) * URIC ACID BLOOD(Performed 11/24/2023) Performed for Acute myeloid leukemia in remission (HCC) * LDH BLOOD(Performed 11/24/2023) Performed for Acute myeloid leukemia in remission (HCC) * CBC W AUTO DIFFERENTIAL(Performed 11/24/2023) Performed for Acute myeloid leukemia in remission (HCC) * MAGNESIUM BLOOD(Performed 11/24/2023) Performed for Acute myeloid leukemia in remission (HCC) * COMPREHENSIVE METABOLIC PANEL(Performed 11/24/2023) Performed for Acute myeloid leukemia in remission (HCC) * PHOSPHORUS BLOOD(Performed 11/24/2023) Performed for Acute myeloid leukemia in remission (HCC) * PLATELET COUNT AUTO(Performed 11/21/2023) Performed for Acute myeloid leukemia in remission (HCC) * TRANSFUSE PLATELET PHERESIS UNIT(S)(Performed 11/21/2023) * PREPARE PLATELET PHERESIS UNIT(S)(Performed 11/21/2023) * TYPE + SCREEN PANEL(Performed 11/21/2023) Performed for Acute myeloid leukemia in remission (HCC) * URIC ACID BLOOD(Performed 11/21/2023) Performed for Acute myeloid leukemia in remission (HCC) * LDH BLOOD(Performed 11/21/2023) Performed for Acute myeloid leukemia in remission (HCC) * CBC W AUTO DIFFERENTIAL(Performed 11/21/2023) Performed for Acute myeloid leukemia in remission (HCC) * MAGNESIUM BLOOD(Performed 11/21/2023) Performed for Acute myeloid leukemia in remission (HCC) * COMPREHENSIVE METABOLIC PANEL(Performed 11/21/2023) Performed for Acute myeloid leukemia in remission (HCC) * PHOSPHORUS BLOOD(Performed 11/21/2023) Performed for Acute myeloid leukemia in remission (HCC) * PLATELET COUNT AUTO(Performed 11/19/2023) Performed for Acute myeloid leukemia in remission (HCC) * TRANSFUSE PLATELET PHERESIS UNIT(S)(Performed 11/19/2023) * PREPARE PLATELET PHERESIS UNIT(S)(Performed 11/19/2023) * CT HEAD WO CONTRAST(Performed 11/19/2023) 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), Abnormalimaging of central nervous system * TYPE + SCREEN PANEL(Performed 11/19/2023) Performed for Acute myeloid leukemia in remission (HCC) * URIC ACID BLOOD(Performed 11/19/2023) Performed for Acute myeloid leukemia in remission (HCC) * LDH BLOOD(Performed 11/19/2023) Performed for Acute myeloid leukemia in remission (HCC) * CBC W AUTO DIFFERENTIAL(Performed 11/19/2023) Performed for Acute myeloid leukemia in remission (HCC) * MAGNESIUM BLOOD(Performed 11/19/2023) Performed for Acute myeloid leukemia in remission (HCC) * COMPREHENSIVE METABOLIC PANEL(Performed 11/19/2023) Performed for Acute myeloid leukemia in remission (HCC) * PHOSPHORUS BLOOD(Performed 11/19/2023) Performed for Acute myeloid leukemia in remission (HCC) * TRANSFUSE RED BLOOD CELL LEUKOREDUCED UNIT(S)(Performed 11/17/2023) * PREPARE RBC LEUKOREDUCED UNIT(Performed 11/17/2023) * TYPE + SCREEN PANEL(Performed 11/17/2023) Performed for Acute myeloid leukemia in remission (HCC) * URIC ACID BLOOD(Performed 11/17/2023) Performed for Acute myeloid leukemia in remission (HCC) * LDH BLOOD(Performed 11/17/2023) Performed for Acute myeloid leukemia in remission (HCC) * CBC W AUTO DIFFERENTIAL(Performed 11/17/2023) Performed for Acute myeloid leukemia in remission (HCC) * MAGNESIUM BLOOD(Performed 11/17/2023) Performed for Acute myeloid leukemia in remission (HCC) * COMPREHENSIVE METABOLIC PANEL(Performed 11/17/2023) Performed for Acute myeloid leukemia in remission (HCC) * PHOSPHORUS BLOOD(Performed 11/17/2023) Performed for Acute myeloid leukemia in remission (HCC) * CBC W AUTO DIFFERENTIAL(Performed 11/14/2023) Performed for Acute myeloid leukemia in remission (HCC) * TRANSFUSE PLATELET PHERESIS UNIT(S)(Performed 11/14/2023) * PREPARE PLATELET PHERESIS UNIT(S)(Performed 11/14/2023) * TYPE + SCREEN PANEL(Performed 11/14/2023) Performed for Acute myeloid leukemia in remission (HCC) * DIFFERENTIAL MANUAL(Performed 11/14/2023) Performed for Acute myeloid leukemia in remission (HCC) * URIC ACID BLOOD(Performed 11/14/2023) Performed for Acute myeloid leukemia in remission (HCC) * LDH BLOOD(Performed 11/14/2023) Performed for Acute myeloid leukemia in remission (HCC) * CBC W AUTO DIFFERENTIAL(Performed 11/14/2023) Performed for Acute myeloid leukemia in remission (HCC) * MAGNESIUM BLOOD(Performed 11/14/2023) Performed for Acute myeloid leukemia in remission (HCC) * COMPREHENSIVE METABOLIC PANEL(Performed 11/14/2023) Performed for Acute myeloid leukemia in remission (HCC) * PHOSPHORUS BLOOD(Performed 11/14/2023) Performed for Acute myeloid leukemia in remission (HCC) * TYPE + SCREEN PANEL(Performed 11/12/2023) Performed for Acute myeloid leukemia in remission (HCC) * URIC ACID BLOOD(Performed 11/12/2023) Performed for Acute myeloid leukemia in remission (HCC) * LDH BLOOD(Performed 11/12/2023) Performed for Acute myeloid leukemia in remission (HCC) * CBC W AUTO DIFFERENTIAL(Performed 11/12/2023) Performed for Acute myeloid leukemia in remission (HCC) * MAGNESIUM BLOOD(Performed 11/12/2023) Performed for Acute myeloid leukemia in remission (HCC) * COMPREHENSIVE METABOLIC PANEL(Performed 11/12/2023) Performed for Acute myeloid leukemia in remission (HCC) * PHOSPHORUS BLOOD(Performed 11/12/2023) Performed for Acute myeloid leukemia in remission (HCC) * PLATELET COUNT AUTO(Performed 11/10/2023) Performed for Acute myeloid leukemia in remission (HCC) * TRANSFUSE PLATELET PHERESIS UNIT(S)(Performed 11/10/2023) * PREPARE PLATELET PHERESIS UNIT(S)(Performed 11/10/2023) * RESPIRATORY PANEL WITH SARS-COV-2 BY PCR (STL)(Performed 11/10/2023) Performed for Viral upper respiratory tract infection * TYPE + SCREEN PANEL(Performed 11/10/2023) Performed for Acute myeloid leukemia in remission (HCC) * DIFFERENTIAL MANUAL(Performed 11/10/2023) Performed for Acute myeloid leukemia in remission (HCC) * PHOSPHORUS BLOOD(Performed 11/10/2023) Performed for Acute myeloid leukemia in remission (HCC) * MAGNESIUM BLOOD(Performed 11/10/2023) Performed for Acute myeloid leukemia in remission (HCC) * COMPREHENSIVE METABOLIC PANEL(Performed 11/10/2023) Performed for Acute myeloid leukemia in remission (HCC) * CBC W AUTO DIFFERENTIAL(Performed 11/10/2023) Performed for Acute myeloid leukemia in remission (HCC) * PHOSPHORUS BLOOD(Performed 11/07/2023) Performed for Acute myeloid leukemia in remission (HCC) * MAGNESIUM BLOOD(Performed 11/07/2023) Performed for Acute myeloid leukemia in remission (HCC) * CBC W AUTO DIFFERENTIAL(Performed 11/07/2023) Performed for Acute myeloid leukemia in remission (HCC) * COMPREHENSIVE METABOLIC PANEL(Performed 11/07/2023) Performed for Acute myeloid leukemia in remission (HCC) * PREPARE RBC LEUKOREDUCED UNIT(Performed 11/07/2023) * PHOSPHORUS BLOOD(Performed 11/06/2023) Performed for Acute myeloid leukemia in remission (HCC) * MAGNESIUM BLOOD(Performed 11/06/2023) Performed for Acute myeloid leukemia in remission (HCC) * CBC W AUTO DIFFERENTIAL(Performed 11/06/2023) Performed for Acute myeloid leukemia in remission (HCC) * COMPREHENSIVE METABOLIC PANEL(Performed 11/06/2023) Performed for Acute myeloid leukemia in remission (HCC) * TRANSFUSE RED BLOOD CELL LEUKOREDUCED UNIT(S)(Performed 11/06/2023) * PREPARE RBC LEUKOREDUCED UNIT(Performed 11/06/2023) * TYPE + SCREEN PANEL(Performed 11/06/2023) * PHOSPHORUS BLOOD(Performed 11/05/2023) Performed for Acute myeloid leukemia in remission (HCC) * MAGNESIUM BLOOD(Performed 11/05/2023) Performed for Acute myeloid leukemia in remission (HCC) * CBC W AUTO DIFFERENTIAL(Performed 11/05/2023) Performed for Acute myeloid leukemia in remission (HCC) * COMPREHENSIVE METABOLIC PANEL(Performed 11/05/2023) Performed for Acute myeloid leukemia in remission (HCC) * PHOSPHORUS BLOOD(Performed 11/04/2023) Performed for Acute myeloid leukemia in remission (HCC) * MAGNESIUM BLOOD(Performed 11/04/2023) Performed for Acute myeloid leukemia in remission (HCC) * CBC W AUTO DIFFERENTIAL(Performed 11/04/2023) Performed for Acute myeloid leukemia in remission (HCC) * COMPREHENSIVE METABOLIC PANEL(Performed 11/04/2023) Performed for Acute myeloid leukemia in remission (HCC) * TYPE + SCREEN PANEL(Performed 11/03/2023) * PHOSPHORUS BLOOD(Performed 11/03/2023) Performed for Acute myeloid leukemia in remission (HCC) * MAGNESIUM BLOOD(Performed 11/03/2023) Performed for Acute myeloid leukemia in remission (HCC) * CBC W AUTO DIFFERENTIAL(Performed 11/03/2023) Performed for Acute myeloid leukemia in remission (HCC) * COMPREHENSIVE METABOLIC PANEL(Performed 11/03/2023) 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) * TRANSFUSE RED BLOOD CELL LEUKOREDUCED UNIT(S)(Performed 11/03/2023) * PREPARE RBC LEUKOREDUCED UNIT(Performed 11/03/2023) * HCG URINE QUALITATIVE(Performed 11/03/2023) 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) * TYPE + SCREEN PANEL(Performed 11/03/2023) 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) * URIC ACID BLOOD(Performed 11/03/2023) 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) * LDH BLOOD(Performed 11/03/2023) 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) * CBC W AUTO DIFFERENTIAL(Performed 11/03/2023) 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) * MAGNESIUM BLOOD(Performed 11/03/2023) 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) * COMPREHENSIVE METABOLIC PANEL(Performed 11/03/2023) 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) * PHOSPHORUS BLOOD(Performed 11/03/2023) 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) * PATHOLOGY PERIPHERAL SMEAR REVIEW(Performed 10/29/2023) 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) * TYPE + SCREEN PANEL(Performed 10/29/2023) 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) * DIFFERENTIAL MANUAL(Performed 10/29/2023) 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) * URIC ACID BLOOD(Performed 10/29/2023) 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) * LDH BLOOD(Performed 10/29/2023) 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) * CBC W AUTO DIFFERENTIAL(Performed 10/29/2023) 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) * MAGNESIUM BLOOD(Performed 10/29/2023) 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) * COMPREHENSIVE METABOLIC PANEL(Performed 10/29/2023) 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) * PHOSPHORUS BLOOD(Performed 10/29/2023) 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) * DIFFERENTIAL MANUAL(Performed 10/27/2023) 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) * URIC ACID BLOOD(Performed 10/27/2023) 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) * LDH BLOOD(Performed 10/27/2023) 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) * CBC W AUTO DIFFERENTIAL(Performed 10/27/2023) 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) * MAGNESIUM BLOOD(Performed 10/27/2023) 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) * COMPREHENSIVE METABOLIC PANEL(Performed 10/27/2023) 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) * PHOSPHORUS BLOOD(Performed 10/27/2023) 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) * TYPE + SCREEN PANEL(Performed 10/24/2023) 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) * DIFFERENTIAL MANUAL(Performed 10/24/2023) 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) * URIC ACID BLOOD(Performed 10/24/2023) 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) * LDH BLOOD(Performed 10/24/2023) 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) * CBC W AUTO DIFFERENTIAL(Performed 10/24/2023) 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) * MAGNESIUM BLOOD(Performed 10/24/2023) 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) * COMPREHENSIVE METABOLIC PANEL(Performed 10/24/2023) 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) * PHOSPHORUS BLOOD(Performed 10/24/2023) 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) * TYPE + SCREEN PANEL(Performed 10/22/2023) 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) * DIFFERENTIAL MANUAL(Performed 10/22/2023) 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) * URIC ACID BLOOD(Performed 10/22/2023) 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) * LDH BLOOD(Performed 10/22/2023) 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) * CBC W AUTO DIFFERENTIAL(Performed 10/22/2023) 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) * MAGNESIUM BLOOD(Performed 10/22/2023) 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) * COMPREHENSIVE METABOLIC PANEL(Performed 10/22/2023) 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) * PHOSPHORUS BLOOD(Performed 10/22/2023) 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) * PLATELET COUNT AUTO(Performed 10/20/2023) 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) * TRANSFUSE RED BLOOD CELL LEUKOREDUCED UNIT(S)(Performed 10/20/2023) * PREPARE RBC LEUKOREDUCED UNIT(Performed 10/20/2023) * TRANSFUSE PLATELET PHERESIS UNIT(S)(Performed 10/20/2023) * PREPARE PLATELET PHERESIS UNIT(S)(Performed 10/20/2023) * TYPE + SCREEN PANEL(Performed 10/20/2023) 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) * URIC ACID BLOOD(Performed 10/20/2023) 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) * LDH BLOOD(Performed 10/20/2023) 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) * CBC W AUTO DIFFERENTIAL(Performed 10/20/2023) 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) * MAGNESIUM BLOOD(Performed 10/20/2023) 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) * COMPREHENSIVE METABOLIC PANEL(Performed 10/20/2023) 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) * PHOSPHORUS BLOOD(Performed 10/20/2023) 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) * PLATELET COUNT AUTO(Performed 10/17/2023) 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) * PREPARE PLATELET PHERESIS UNIT(S)(Performed 10/17/2023) * TYPE + SCREEN PANEL(Performed 10/17/2023) 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) * URIC ACID BLOOD(Performed 10/17/2023) 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) * LDH BLOOD(Performed 10/17/2023) 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) * CBC W AUTO DIFFERENTIAL(Performed 10/17/2023) 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) * MAGNESIUM BLOOD(Performed 10/17/2023) 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) * COMPREHENSIVE METABOLIC PANEL(Performed 10/17/2023) 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) * PHOSPHORUS BLOOD(Performed 10/17/2023) 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) * HCG URINE QUALITATIVE(Performed 10/14/2023) Performed for Vaginal bleeding * TRANSFUSE RED BLOOD CELL LEUKOREDUCED UNIT(S)(Performed 10/14/2023) * PREPARE RBC LEUKOREDUCED UNIT(Performed 10/14/2023) * LDH BLOOD(Performed 10/14/2023) Performed for Acute myeloid leukemia in remission (HCC), Pancytopenia (HCC) * URIC ACID BLOOD(Performed 10/14/2023) Performed for Acute myeloid leukemia in remission (HCC), Pancytopenia (HCC) * CBC W AUTO DIFFERENTIAL(Performed 10/14/2023) Performed for Acute myeloid leukemia in remission (HCC), Pancytopenia (HCC) * COMPREHENSIVE METABOLIC PANEL(Performed 10/14/2023) Performed for Acute myeloid leukemia in remission (HCC), Pancytopenia (HCC) * MAGNESIUM BLOOD(Performed 10/14/2023) Performed for Acute myeloid leukemia in remission (HCC), Pancytopenia (HCC) * PHOSPHORUS BLOOD(Performed 10/14/2023) Performed for Acute myeloid leukemia in remission (HCC), Pancytopenia (HCC) * DIFFERENTIAL MANUAL(Performed 10/13/2023) * POTASSIUM WHOLE BLD(Performed 10/13/2023) * CBC W AUTO DIFFERENTIAL(Performed 10/13/2023) * TRANSFUSE PLATELET PHERESIS UNIT(S)(Performed 10/13/2023) * PREPARE PLATELET PHERESIS UNIT(S)(Performed 10/13/2023) * OBTAIN CONSENT FOR TRANSFUSION(Performed 10/13/2023) * DOLL AUTO VISUAL FIELD EXTENDED(Performed 10/13/2023) Performed for IIH (idiopathic intracranial hypertension) * OPTIC NERVE ANALYSIS OCT(Performed 10/13/2023) Performed for IIH (idiopathic intracranial hypertension) * TYPE + SCREEN PANEL(Performed 10/13/2023) 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) * DIFFERENTIAL MANUAL(Performed 10/13/2023) 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) * URIC ACID BLOOD(Performed 10/13/2023) 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) * PHOSPHORUS BLOOD(Performed 10/13/2023) 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) * MAGNESIUM BLOOD(Performed 10/13/2023) 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) * LDH BLOOD(Performed 10/13/2023) 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) * COMPREHENSIVE METABOLIC PANEL(Performed 10/13/2023) 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) * CBC W AUTO DIFFERENTIAL(Performed 10/13/2023) 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) * TRANSFUSE RED BLOOD CELL LEUKOREDUCED UNIT(S)(Performed 10/09/2023) * PREPARE RBC LEUKOREDUCED UNIT(Performed 10/09/2023) * TYPE + SCREEN PANEL(Performed 10/09/2023) * BLOOD GASES ROMERO + COOX PANEL(Performed 10/09/2023) * DIFFERENTIAL MANUAL(Performed 10/08/2023) * FIBRINOGEN ACTIVITY(Performed 10/08/2023) * CBC W AUTO DIFFERENTIAL(Performed 10/08/2023) * PHOSPHORUS BLOOD(Performed 10/08/2023) * MAGNESIUM BLOOD(Performed 10/08/2023) * COMPREHENSIVE METABOLIC PANEL(Performed 10/08/2023) * GLUCOSE - POINT OF CARE(Performed 10/08/2023) * DIFFERENTIAL MANUAL(Performed 10/07/2023) * FIBRINOGEN ACTIVITY(Performed 10/07/2023) * CBC W AUTO DIFFERENTIAL(Performed 10/07/2023) * PHOSPHORUS BLOOD(Performed 10/07/2023) * MAGNESIUM BLOOD(Performed 10/07/2023) * COMPREHENSIVE METABOLIC PANEL(Performed 10/07/2023) * GLUCOSE - POINT OF CARE(Performed 10/07/2023) * FIBRINOGEN ACTIVITY(Performed 10/06/2023) * CBC W AUTO DIFFERENTIAL(Performed 10/06/2023) * PHOSPHORUS BLOOD(Performed 10/06/2023) * MAGNESIUM BLOOD(Performed 10/06/2023) * COMPREHENSIVE METABOLIC PANEL(Performed 10/06/2023) * GLUCOSE - POINT OF CARE(Performed 10/06/2023) * FL LUMBAR PUNCT FOR CHEMO INJ(Performed 10/06/2023) 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) * FLOW CYTOMETRY BODY FLUID(Performed 10/06/2023) 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) * HOLD SPECIMEN CSF(Performed 10/06/2023) * CELL COUNT W DIFFERENTIAL CSF(Performed 10/06/2023) * PROTEIN CSF(Performed 10/06/2023) * GLUCOSE CSF(Performed 10/06/2023) * MENINGITIS/ENCEPHALITIS PANEL CSF(Performed 10/06/2023) * CULTURE CSF+GRAM STAIN(Performed 10/06/2023) * CYTOLOGY NON-PUBLISHING AGENT PANEL (STL)(Performed 10/06/2023) 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) * GLUCOSE - POINT OF CARE(Performed 10/06/2023) * GLUCOSE - POINT OF CARE(Performed 10/06/2023) * FIBRINOGEN ACTIVITY(Performed 10/05/2023) * CBC W AUTO DIFFERENTIAL(Performed 10/05/2023) * PHOSPHORUS BLOOD(Performed 10/05/2023) * MAGNESIUM BLOOD(Performed 10/05/2023) * COMPREHENSIVE METABOLIC PANEL(Performed 10/05/2023) * GLUCOSE - POINT OF CARE(Performed 10/05/2023) * DIFFERENTIAL MANUAL(Performed 10/04/2023) * FIBRINOGEN ACTIVITY(Performed 10/04/2023) * CBC W AUTO DIFFERENTIAL(Performed 10/04/2023) * PHOSPHORUS BLOOD(Performed 10/04/2023) * MAGNESIUM BLOOD(Performed 10/04/2023) * COMPREHENSIVE METABOLIC PANEL(Performed 10/04/2023) * GLUCOSE - POINT OF CARE(Performed 10/04/2023) * GLUCOSE - POINT OF CARE(Performed 10/04/2023) * GLUCOSE - POINT OF CARE(Performed 10/04/2023) * GLUCOSE - POINT OF CARE(Performed 10/04/2023) * DIFFERENTIAL MANUAL(Performed 10/03/2023) * FIBRINOGEN ACTIVITY(Performed 10/03/2023) * CBC W AUTO DIFFERENTIAL(Performed 10/03/2023) * PHOSPHORUS BLOOD(Performed 10/03/2023) * MAGNESIUM BLOOD(Performed 10/03/2023) * COMPREHENSIVE METABOLIC PANEL(Performed 10/03/2023) * GLUCOSE - POINT OF CARE(Performed 10/03/2023) * GLUCOSE - POINT OF CARE(Performed 10/03/2023) * GLUCOSE - POINT OF CARE(Performed 10/03/2023) * GLUCOSE - POINT OF CARE(Performed 10/03/2023) * MRI ANGIO BRAIN VENOUS WWO CONT(Performed 10/03/2023) Performed for Abnormal imaging of central nervous system * DIFFERENTIAL MANUAL(Performed 10/02/2023) * FIBRINOGEN ACTIVITY(Performed 10/02/2023) * CBC W AUTO DIFFERENTIAL(Performed 10/02/2023) * PHOSPHORUS BLOOD(Performed 10/02/2023) * MAGNESIUM BLOOD(Performed 10/02/2023) * COMPREHENSIVE METABOLIC PANEL(Performed 10/02/2023) * GLUCOSE - POINT OF CARE(Performed 10/02/2023) * GLUCOSE - POINT OF CARE(Performed 10/02/2023) * GLUCOSE - POINT OF CARE(Performed 10/02/2023) * GLUCOSE - POINT OF CARE(Performed 10/02/2023) * DIFFERENTIAL MANUAL(Performed 10/01/2023) * FIBRINOGEN ACTIVITY(Performed 10/01/2023) * CBC W AUTO DIFFERENTIAL(Performed 10/01/2023) * PHOSPHORUS BLOOD(Performed 10/01/2023) * MAGNESIUM BLOOD(Performed 10/01/2023) * COMPREHENSIVE METABOLIC PANEL(Performed 10/01/2023) * GLUCOSE - POINT OF CARE(Performed 10/01/2023) * XR ABD OBSTRUCTION SERIES 2VW(Performed 10/01/2023) Performed for Nausea and vomiting, unspecified vomiting type * GLUCOSE - POINT OF CARE(Performed 10/01/2023) * FISH PML/BENY PANEL(Performed 10/01/2023) 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) * FLOW CYTOMETRY BONE MARROW(Performed 10/01/2023) 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) * CHROMOSOME ANALYSIS BONE MARROW PANEL(Performed 10/01/2023) 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) * BONE MARROW BIOPSY (STL)(Performed 10/01/2023) 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) * MYELOID MALIGNANCIES MUTATION PNL(Performed 10/01/2023) 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) * FISH AML PANEL BLOOD OR BM RFLX PML/BENY(Performed 10/01/2023) 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) * LAB MISC TEST (NOT BLOOD)(Performed 10/01/2023) * LAB MISC TEST (NOT BLOOD)(Performed 10/01/2023) * LAB MISC TEST (NOT BLOOD)(Performed 10/01/2023) * GLUCOSE - POINT OF CARE(Performed 10/01/2023) * CT HEAD WO CONTRAST(Performed 10/01/2023) Performed for Abnormal imaging of central nervous system * FL LUMBAR PUNCT FOR CHEMO INJ(Performed 10/01/2023) Performed for Abnormal imaging of central nervous system * FLOW CYTOMETRY BODY FLUID(Performed 10/01/2023) Performed for Abnormal imaging of central nervous system * CYTOLOGY NON-PUBLISHING AGENT PANEL (STL)(Performed 10/01/2023) Performed for Abnormal imaging of central nervous system * GLUCOSE - POINT OF CARE(Performed 10/01/2023) * CT ANGIO BRAIN AND NECK(Performed 10/01/2023) Performed for Abnormal imaging of central nervous system * GLUCOSE - POINT OF CARE(Performed 09/30/2023) * DIFFERENTIAL MANUAL(Performed 09/30/2023) * FIBRINOGEN ACTIVITY(Performed 09/30/2023) * CBC W AUTO DIFFERENTIAL(Performed 09/30/2023) * PHOSPHORUS BLOOD(Performed 09/30/2023) * MAGNESIUM BLOOD(Performed 09/30/2023) * COMPREHENSIVE METABOLIC PANEL(Performed 09/30/2023) * TRANSFUSE PLATELET PHERESIS UNIT(S)(Performed 09/30/2023) * PREPARE PLATELET PHERESIS UNIT(S)(Performed 09/30/2023) * GLUCOSE - POINT OF CARE(Performed 09/30/2023) * CT HEAD WO CONTRAST(Performed 09/30/2023) Performed for Abnormal imaging of central nervous system * GLUCOSE - POINT OF CARE(Performed 09/30/2023) * GLUCOSE - POINT OF CARE(Performed 09/30/2023) * GLUCOSE - POINT OF CARE(Performed 09/30/2023) * FIBRINOGEN ACTIVITY(Performed 09/30/2023) * DIFFERENTIAL MANUAL(Performed 09/29/2023) * CBC W AUTO DIFFERENTIAL(Performed 09/29/2023) * PHOSPHORUS BLOOD(Performed 09/29/2023) * MAGNESIUM BLOOD(Performed 09/29/2023) * COMPREHENSIVE METABOLIC PANEL(Performed 09/29/2023) * GLUCOSE - POINT OF CARE(Performed 09/29/2023) * MRI ORBITS OR FACE WWO CONTRAST(Performed 09/29/2023) 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) * MRI BRAIN WWO CONTRAST(Performed 09/29/2023) 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) * GLUCOSE - POINT OF CARE(Performed 09/29/2023) * TRANSFUSION REACTION PANEL(Performed 09/29/2023) * GLUCOSE - POINT OF CARE(Performed 09/29/2023) * GLUCOSE - POINT OF CARE(Performed 09/29/2023) * PREPARE PLATELET PHERESIS UNIT(S)(Performed 09/29/2023) * DIFFERENTIAL MANUAL(Performed 09/28/2023) * CBC W AUTO DIFFERENTIAL(Performed 09/28/2023) * PHOSPHORUS BLOOD(Performed 09/28/2023) * MAGNESIUM BLOOD(Performed 09/28/2023) * COMPREHENSIVE METABOLIC PANEL(Performed 09/28/2023) * GLUCOSE - POINT OF CARE(Performed 09/28/2023) * GLUCOSE - POINT OF CARE(Performed 09/28/2023) * GLUCOSE - POINT OF CARE(Performed 09/28/2023) * XR CHEST 1VW PORTABLE(Performed 09/28/2023) Performed for Acute cough * GLUCOSE - POINT OF CARE(Performed 09/28/2023) * GLUCOSE - POINT OF CARE(Performed 09/27/2023) * DIFFERENTIAL MANUAL(Performed 09/27/2023) * CBC W AUTO DIFFERENTIAL(Performed 09/27/2023) * PHOSPHORUS BLOOD(Performed 09/27/2023) * MAGNESIUM BLOOD(Performed 09/27/2023) * COMPREHENSIVE METABOLIC PANEL(Performed 09/27/2023) * GLUCOSE - POINT OF CARE(Performed 09/27/2023) * GLUCOSE - POINT OF CARE(Performed 09/27/2023) * ECHO LIMITED OR FOLLOWUP(Performed 09/27/2023) Performed for Sinus tachycardia * GLUCOSE - POINT OF CARE(Performed 09/27/2023) * DIFFERENTIAL MANUAL(Performed 09/27/2023) * HEMOGLOBIN A1C(Performed 09/27/2023) * CBC W AUTO DIFFERENTIAL(Performed 09/27/2023) * PHOSPHORUS BLOOD(Performed 09/27/2023) * MAGNESIUM BLOOD(Performed 09/27/2023) * COMPREHENSIVE METABOLIC PANEL(Performed 09/27/2023) * GLUCOSE - POINT OF CARE(Performed 09/26/2023) * GLUCOSE - POINT OF CARE(Performed 09/26/2023) * PHOSPHORUS BLOOD(Performed 09/26/2023) * BASIC METABOLIC PANEL (CALCIUM TOTAL)(Performed 09/26/2023) * GLUCOSE - POINT OF CARE(Performed 09/26/2023) * XR CHEST 1VW PORTABLE(Performed 09/26/2023) Performed for Tachycardia, Sinus tachycardia * PHOSPHORUS BLOOD(Performed 09/26/2023) * BASIC METABOLIC PANEL (CALCIUM TOTAL)(Performed 09/26/2023) * OSMOLALITY BLOOD(Performed 09/26/2023) * OSMOLALITY URINE(Performed 09/26/2023) * SODIUM URINE RANDOM(Performed 09/26/2023) * GLUCOSE - POINT OF CARE(Performed 09/26/2023) * URIC ACID BLOOD(Performed 09/25/2023) * CBC W AUTO DIFFERENTIAL(Performed 09/25/2023) * PHOSPHORUS BLOOD(Performed 09/25/2023) * MAGNESIUM BLOOD(Performed 09/25/2023) * COMPREHENSIVE METABOLIC PANEL(Performed 09/25/2023) * TRANSFUSE PLATELET PHERESIS UNIT(S)(Performed 09/25/2023) * PREPARE PLATELET PHERESIS UNIT(S)(Performed 09/25/2023) * CBC W/O DIFFERENTIAL(Performed 09/25/2023) * TROPONIN-I HIGH SENSITIVE(Performed 09/25/2023) * B-TYPE NATRIURETIC PEPTIDE(Performed 09/25/2023) * BASIC METABOLIC PANEL (CALCIUM TOTAL)(Performed 09/25/2023) * EKG 12-LEAD(Performed 09/25/2023) Performed for Tachycardia * TRANSFUSE RED BLOOD CELL LEUKOREDUCED UNIT(S)(Performed 09/25/2023) * PREPARE RBC LEUKOREDUCED UNIT(Performed 09/25/2023) * TYPE + SCREEN PANEL(Performed 09/25/2023) * BLOOD GASES ART + COOX PANEL(Performed 09/25/2023) * URIC ACID BLOOD(Performed 09/24/2023) * CBC W AUTO DIFFERENTIAL(Performed 09/24/2023) * PHOSPHORUS BLOOD(Performed 09/24/2023) * MAGNESIUM BLOOD(Performed 09/24/2023) * COMPREHENSIVE METABOLIC PANEL(Performed 09/24/2023) * URIC ACID BLOOD(Performed 09/24/2023) * CBC W AUTO DIFFERENTIAL(Performed 09/24/2023) * PHOSPHORUS BLOOD(Performed 09/24/2023) * MAGNESIUM BLOOD(Performed 09/24/2023) * COMPREHENSIVE METABOLIC PANEL(Performed 09/24/2023) * CBC W AUTO DIFFERENTIAL(Performed 09/23/2023) * TRANSFUSE PLATELET PHERESIS UNIT(S)(Performed 09/23/2023) * PREPARE PLATELET PHERESIS UNIT(S)(Performed 09/23/2023) * GLUCOSE - POINT OF CARE(Performed 09/23/2023) * URIC ACID BLOOD(Performed 09/23/2023) * CBC W AUTO DIFFERENTIAL(Performed 09/23/2023) * VANCOMYCIN LEVEL TROUGH(Performed 09/23/2023) * GLUCOSE - POINT OF CARE(Performed 09/22/2023) * VANCOMYCIN LEVEL PEAK(Performed 09/22/2023) * PHOSPHORUS BLOOD(Performed 09/22/2023) * MAGNESIUM BLOOD(Performed 09/22/2023) * COMPREHENSIVE METABOLIC PANEL(Performed 09/22/2023) * CT ANGIO CHEST PULM EMBOLISM(Performed 09/22/2023) Performed for Tachycardia * GLUCOSE - POINT OF CARE(Performed 09/22/2023) * CULTURE BLOOD(Performed 09/22/2023) * MRSA DNA PCR(Performed 09/22/2023) * RESPIRATORY PANEL WITH SARS-COV-2 BY PCR (STL)(Performed 09/22/2023) * LACTIC ACID BLOOD REFLEX TO REPEAT(Performed 09/22/2023) * CBC W AUTO DIFFERENTIAL(Performed 09/22/2023) * XR CHEST 1VW PORTABLE(Performed 09/22/2023) 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) * VAS BILATERAL VENOUS DUPLEX LE(Performed 09/22/2023) Performed for Tachycardia * URIC ACID BLOOD(Performed 09/22/2023) * CBC W AUTO DIFFERENTIAL(Performed 09/22/2023) * PHOSPHORUS BLOOD(Performed 09/22/2023) * MAGNESIUM BLOOD(Performed 09/22/2023) * COMPREHENSIVE METABOLIC PANEL(Performed 09/22/2023) * TRANSFUSE RED BLOOD CELL LEUKOREDUCED UNIT(S)(Performed 09/21/2023) * PREPARE RBC LEUKOREDUCED UNIT(Performed 09/21/2023) * TYPE + SCREEN PANEL(Performed 09/21/2023) * CBC W AUTO DIFFERENTIAL(Performed 09/21/2023) * PLATELET COUNT AUTO(Performed 09/21/2023) * TRANSFUSE PLATELET PHERESIS UNIT(S)(Performed 09/21/2023) * PREPARE PLATELET PHERESIS UNIT(S)(Performed 09/21/2023) * CBC W AUTO DIFFERENTIAL(Performed 09/21/2023) * PHOSPHORUS BLOOD(Performed 09/21/2023) * MAGNESIUM BLOOD(Performed 09/21/2023) * COMPREHENSIVE METABOLIC PANEL(Performed 09/21/2023) * CBC W AUTO DIFFERENTIAL(Performed 09/20/2023) * CBC W AUTO DIFFERENTIAL(Performed 09/20/2023) * TRANSFUSE RED BLOOD CELL LEUKOREDUCED UNIT(S)(Performed 09/20/2023) * PREPARE RBC LEUKOREDUCED UNIT(Performed 09/20/2023) * TYPE + SCREEN PANEL(Performed 09/19/2023) * PHOSPHORUS BLOOD(Performed 09/19/2023) * MAGNESIUM BLOOD(Performed 09/19/2023) * COMPREHENSIVE METABOLIC PANEL(Performed 09/19/2023) * CBC W AUTO DIFFERENTIAL(Performed 09/19/2023) * EKG 12-LEAD(Performed 09/19/2023) Performed for Tachycardia * FLOW CYTOMETRY BONE MARROW(Performed 09/19/2023) 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) * BONE MARROW BIOPSY (STL)(Performed 09/19/2023) 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) * DIFFERENTIAL MANUAL(Performed 09/18/2023) * CBC W AUTO DIFFERENTIAL(Performed 09/18/2023) * PHOSPHORUS BLOOD(Performed 09/18/2023) * MAGNESIUM BLOOD(Performed 09/18/2023) * COMPREHENSIVE METABOLIC PANEL(Performed 09/18/2023) * CBC W AUTO DIFFERENTIAL(Performed 09/18/2023) * TRANSFUSE PLATELET PHERESIS UNIT(S)(Performed 09/18/2023) * PREPARE PLATELET PHERESIS UNIT(S)(Performed 09/17/2023) * DIFFERENTIAL MANUAL(Performed 09/17/2023) * COMPREHENSIVE METABOLIC PANEL(Performed 09/17/2023) * CBC W AUTO DIFFERENTIAL(Performed 09/17/2023) * DIFFERENTIAL MANUAL(Performed 09/16/2023) * COMPREHENSIVE METABOLIC PANEL(Performed 09/16/2023) * CBC W AUTO DIFFERENTIAL(Performed 09/16/2023) * TYPE + SCREEN PANEL(Performed 09/15/2023) * COMPREHENSIVE METABOLIC PANEL(Performed 09/15/2023) * CBC W AUTO DIFFERENTIAL(Performed 09/15/2023) * XR ABDOMEN KUB(Performed 09/15/2023) Performed for Bloating * TRANSFUSE PLATELET PHERESIS UNIT(S)(Performed 09/15/2023) * PREPARE PLATELET PHERESIS UNIT(S)(Performed 09/15/2023) * TRANSFUSE RED BLOOD CELL LEUKOREDUCED UNIT(S)(Performed 09/15/2023) * PREPARE RBC LEUKOREDUCED UNIT(Performed 09/15/2023) * PHOSPHORUS BLOOD(Performed 09/14/2023) * MAGNESIUM BLOOD(Performed 09/14/2023) * COMPREHENSIVE METABOLIC PANEL(Performed 09/14/2023) * CBC W AUTO DIFFERENTIAL(Performed 09/14/2023) * GLUCOSE - POINT OF CARE(Performed 09/14/2023) * RETIC COUNT(Performed 09/13/2023) * PTT [facility](Performed 09/13/2023) * PT-INR [facility](Performed 09/13/2023) * LDH BLOOD(Performed 09/13/2023) * HAPTOGLOBIN(Performed 09/13/2023) * FIBRINOGEN ACTIVITY(Performed 09/13/2023) * D-DIMER(Performed 09/13/2023) * URIC ACID BLOOD(Performed 09/13/2023) * COMPREHENSIVE METABOLIC PANEL(Performed 09/13/2023) * CBC W AUTO DIFFERENTIAL(Performed 09/13/2023) * GLUCOSE - POINT OF CARE(Performed 09/13/2023) * GLUCOSE - POINT OF CARE(Performed 09/13/2023) * GLUCOSE - POINT OF CARE(Performed 09/13/2023) * GLUCOSE - POINT OF CARE(Performed 09/13/2023) * GLUCOSE - POINT OF CARE(Performed 09/13/2023) * TYPE + SCREEN PANEL(Performed 09/12/2023) * DIFFERENTIAL MANUAL(Performed 09/12/2023) * RETIC COUNT(Performed 09/12/2023) * PTT SLH(Performed 09/12/2023) * PT-INR SLH(Performed 09/12/2023) * LDH BLOOD(Performed 09/12/2023) * HAPTOGLOBIN(Performed 09/12/2023) * FIBRINOGEN ACTIVITY(Performed 09/12/2023) * D-DIMER(Performed 09/12/2023) * URIC ACID BLOOD(Performed 09/12/2023) * COMPREHENSIVE METABOLIC PANEL(Performed 09/12/2023) * CBC W AUTO DIFFERENTIAL(Performed 09/12/2023) * GLUCOSE - POINT OF CARE(Performed 09/12/2023) * GLUCOSE - POINT OF CARE(Performed 09/12/2023) * GLUCOSE - POINT OF CARE(Performed 09/12/2023) * GLUCOSE - POINT OF CARE(Performed 09/12/2023) * GLUCOSE - POINT OF CARE(Performed 09/11/2023) * DIFFERENTIAL MANUAL(Performed 09/11/2023) * RETIC COUNT(Performed 09/11/2023) * PTT SLH(Performed 09/11/2023) * PT-INR SLH(Performed 09/11/2023) * LDH BLOOD(Performed 09/11/2023) * HAPTOGLOBIN(Performed 09/11/2023) * FIBRINOGEN ACTIVITY(Performed 09/11/2023) * D-DIMER(Performed 09/11/2023) * URIC ACID BLOOD(Performed 09/11/2023) * COMPREHENSIVE METABOLIC PANEL(Performed 09/11/2023) * CBC W AUTO DIFFERENTIAL(Performed 09/11/2023) * GLUCOSE - POINT OF CARE(Performed 09/11/2023) * GLUCOSE - POINT OF CARE(Performed 09/11/2023) * URIC ACID BLOOD(Performed 09/10/2023) * COMPREHENSIVE METABOLIC PANEL(Performed 09/10/2023) * CBC W AUTO DIFFERENTIAL(Performed 09/10/2023) * URIC ACID BLOOD(Performed 09/09/2023) * HAPTOGLOBIN(Performed 09/09/2023) * RETIC COUNT(Performed 09/09/2023) * LDH BLOOD(Performed 09/09/2023) * PTT SLH(Performed 09/09/2023) * PT-INR SLH(Performed 09/09/2023) * FIBRINOGEN ACTIVITY(Performed 09/09/2023) * D-DIMER(Performed 09/09/2023) * COMPREHENSIVE METABOLIC PANEL(Performed 09/09/2023) * CBC W AUTO DIFFERENTIAL(Performed 09/09/2023) * TRANSFUSE RED BLOOD CELL LEUKOREDUCED UNIT(S)(Performed 09/09/2023) * PREPARE RBC LEUKOREDUCED UNIT(Performed 09/09/2023) * BLOOD TYPE VERIFICATION(Performed 09/09/2023) * TYPE + SCREEN PANEL(Performed 09/09/2023) * PHOSPHORUS BLOOD(Performed 09/08/2023) * MAGNESIUM BLOOD(Performed 09/08/2023) * URIC ACID BLOOD(Performed 09/08/2023) * HAPTOGLOBIN(Performed 09/08/2023) * RETIC COUNT(Performed 09/08/2023) * LDH BLOOD(Performed 09/08/2023) * PTT SLH(Performed 09/08/2023) * PT-INR SLH(Performed 09/08/2023) * FIBRINOGEN ACTIVITY(Performed 09/08/2023) * D-DIMER(Performed 09/08/2023) * COMPREHENSIVE METABOLIC PANEL(Performed 09/08/2023) * CBC W AUTO DIFFERENTIAL(Performed 09/08/2023) * URIC ACID BLOOD(Performed 09/07/2023) * HAPTOGLOBIN(Performed 09/07/2023) * RETIC COUNT(Performed 09/07/2023) * LDH BLOOD(Performed 09/07/2023) * PTT SLH(Performed 09/07/2023) * PT-INR SLH(Performed 09/07/2023) * FIBRINOGEN ACTIVITY(Performed 09/07/2023) * D-DIMER(Performed 09/07/2023) * COMPREHENSIVE METABOLIC PANEL(Performed 09/07/2023) * CBC W AUTO DIFFERENTIAL(Performed 09/07/2023) * URIC ACID BLOOD(Performed 09/07/2023) * DIFFERENTIAL MANUAL(Performed 09/06/2023) * CYTOMEGALOVIRUS ANTIBODY IGG BLOOD(Performed 09/06/2023) * HAPTOGLOBIN(Performed 09/06/2023) * RETIC COUNT(Performed 09/06/2023) * LDH BLOOD(Performed 09/06/2023) * PTT SLH(Performed 09/06/2023) * PT-INR SLH(Performed 09/06/2023) * FIBRINOGEN ACTIVITY(Performed 09/06/2023) * D-DIMER(Performed 09/06/2023) * COMPREHENSIVE METABOLIC PANEL(Performed 09/06/2023) * CBC W AUTO DIFFERENTIAL(Performed 09/06/2023) * HLA TYPING DNA HIGH RESOLUTION DR(Performed 09/06/2023) * HLA TYPING DNA LOW RESOLUTION A,B,C(Performed 09/06/2023) * HLA TYPING DNA LOW RESOLUTION DR,DQ(Performed 09/06/2023) * HLA TYPING LOW/HIGH RESOLUTION DPB1(Performed 09/06/2023) * HLA TYPING DNA HIGH RESOLUTION DQ(Performed 09/06/2023) * HLA TYPING DNA HIGH RESOLUTION C(Performed 09/06/2023) * HLA TYPING DNA HIGH RESOLUTION B(Performed 09/06/2023) * HLA TYPING DNA HIGH RESOLUTION A(Performed 09/06/2023) * CYTOMEGALOVIRUS (CMV) QUANTITATIVE PLASMA(Performed 09/06/2023) * HCG URINE QUALITATIVE(Performed 09/06/2023) Performed for Tonsillitis * URINALYSIS W/MICROSCOPIC REFLEX TO CULTURE(Performed 09/06/2023) Performed for Tonsillitis * DIFFERENTIAL MANUAL(Performed 09/06/2023) * HAPTOGLOBIN(Performed 09/06/2023) * RETIC COUNT(Performed 09/06/2023) * LDH BLOOD(Performed 09/06/2023) * PTT SLH(Performed 09/06/2023) * PT-INR SLH(Performed 09/06/2023) * FIBRINOGEN ACTIVITY(Performed 09/06/2023) * D-DIMER(Performed 09/06/2023) * COMPREHENSIVE METABOLIC PANEL(Performed 09/06/2023) * CBC W AUTO DIFFERENTIAL(Performed 09/06/2023) * ECHO COMPLETE W BUBBLE STUDY(Performed 09/05/2023) 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) * IR CENTRAL LINE INSERT TUNNEL(Performed 09/05/2023) 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) * MYELOID MALIGNANCIES MUTATION PNL(Performed 09/05/2023) 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) * FISH AML PANEL BLOOD OR BM RFLX PML/BENY(Performed 09/05/2023) 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) * FISH PML/BENY PANEL(Performed 09/05/2023) 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) * FLOW CYTOMETRY BONE MARROW(Performed 09/05/2023) 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) * CHROMOSOME ANALYSIS BONE MARROW PANEL(Performed 09/05/2023) 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) * BONE MARROW BIOPSY (STL)(Performed 09/05/2023) 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) * LAB MISC TEST (NOT BLOOD)(Performed 09/05/2023) * LAB MISC TEST (NOT BLOOD)(Performed 09/05/2023) * LAB MISC TEST (NOT BLOOD)(Performed 09/05/2023) * HCG URINE QUALITATIVE(Performed 09/05/2023) 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) * DIFFERENTIAL MANUAL(Performed 09/05/2023) * COMPREHENSIVE METABOLIC PANEL(Performed 09/05/2023) * LDH BLOOD(Performed 09/05/2023) * RETIC COUNT(Performed 09/05/2023) * PTT SLH(Performed 09/05/2023) * PT-INR SLH(Performed 09/05/2023) * D-DIMER(Performed 09/05/2023) * MAGNESIUM BLOOD(Performed 09/05/2023) * CBC W AUTO DIFFERENTIAL(Performed 09/05/2023) * HAPTOGLOBIN(Performed 09/05/2023) * LDH BLOOD(Performed 09/04/2023) * URIC ACID BLOOD(Performed 09/04/2023) * PHOSPHORUS BLOOD(Performed 09/04/2023) * MAGNESIUM BLOOD(Performed 09/04/2023) * COMPREHENSIVE METABOLIC PANEL(Performed 09/04/2023) * PTT SLH(Performed 09/04/2023) * PT-INR SLH(Performed 09/04/2023) * FIBRINOGEN ACTIVITY(Performed 09/04/2023) * D-DIMER(Performed 09/04/2023) * PATHOLOGY PERIPHERAL SMEAR REVIEW(Performed 09/04/2023) * DIFFERENTIAL MANUAL(Performed 09/04/2023) * RETIC COUNT(Performed 09/04/2023) * CBC W AUTO DIFFERENTIAL(Performed 09/04/2023) * MARTHA-GHOTRA VIRUS ANTIBODY TO VCA IGM(Performed 09/04/2023) * CYTOMEGALOVIRUS ANTIBODY IGG BLOOD(Performed 09/04/2023) * HEPATITIS C AB SCREEN RFLX NAAT QUANT(Performed 09/04/2023) * HEPATITIS B PANEL(Performed 09/04/2023) * HIV-1 HIV-2 ANTIBODY + HIV P24 AG PANEL(Performed 09/04/2023) * HAPTOGLOBIN(Performed 09/04/2023) * CYTOMEGALOVIRUS (CMV) QUANTITATIVE PLASMA(Performed 09/04/2023) * MARTHA-GHOTRA VIRUS QUANT BLOOD STL(Performed 09/04/2023) * FLOW CYTOMETRY BONE MARROW(Performed 09/02/2023) Performed for Other pancytopenia (CMS-HCC) * BONE MARROW BIOPSY (STL)(Performed 09/02/2023) Performed for Illness, unspecified Results * NPM1 MUTATION DETECTION PCR (08/23/2024 9:40 AM METAL [employer] PIPE [employer]) Only the most recent of4 resultswithin the time period is included. NPM1 Source Whole Blood 08/27/2024 1:35 PM METAL ORGAN PIPE [employer] ([facility]) NPM1 Result Not Detected 08/27/2024 1:35 PM METAL [employer]IPE [employer] ([facility]) Comment: A NPM1 (type A, B, or [...] developed and its performance characteristics determined by [facility]. It has not been cleared or approved by the US Food and Drug Administration. This test was performed in a CLIA certified laboratory and is intended for clinical purposes. NPM1 Ratio 0.0000 08/27/2024 1:35 PM METAL [employer] PIPE [employer] [facility] ([facility]) Comment: Performed By: [facility] [address] [place] [address] Transition Program Manager: Ebenezer Shipman MD, PhD CLIA Number: [id number] BLOOD SPECIMEN / Unknown 08/23/2024 9:40 AM [employer] 08/23/2024 9:56 AM [employer] Hussain Carias MD LAB - CHEMISTRY JON NAIDU [facility]) [address] [place] [address] * (ABNORMAL) CBC WITH DIFFERENTIAL (08/23/2024 9:40 AM [employer]) Only the most recent of111 resultswithin the time period is included. WBC 5.2 4.0 - 10.7 x10E9/L 08/23/2024 10:03 AM [facility] RBC Count 4.47 3.90 - 5.20 x10E12/L 08/23/2024 10:03 AM [facility] Hemoglobin 14.1 11.9 - 15.8 g/dL 08/23/2024 10:03 AM [facility] Hematocrit 40.6 34.8 - 46.1 % 08/23/2024 10:03 AM [facility] MCV 90.8 80.0 - 98.0 fL 08/23/2024 10:03 AM [facility] MCH 31.5 26.7 - 33.6 pg 08/23/2024 10:03 AM [facility] MCHC 34.7 31.7 - 36.3 g/dL 08/23/2024 10:03 AM [facility] RDW-CV 12.6 11.3 - 14.8 % 08/23/2024 10:03 AM [facility] Platelet Count 153 150 - 420 x10E9/L 08/23/2024 10:03 AM [facility] MPV 9.1 7.8 - 11.4 fL 08/23/2024 10:03 AM [facility] Preliminary Absolute Neutrophil 3.81 1.60 - 7.50 x10E9/L 08/23/2024 10:03 AM [facility] Neutrophil % 72.7 41.0 - 74.0 % 08/23/2024 10:03 AM [facility] Lymphocyte % 17.0 17.0 - 47.0 % 08/23/2024 10:03 AM [facility] Monocyte % 8.4 3.0 - 11.0 % 08/23/2024 10:03 AM [facility] Eosinophil % 1.3 0.0 - 7.0 % 08/23/2024 10:03 AM [facility] Basophil % 0.2 0.0 - 1.6 % 08/23/2024 10:03 AM [facility] Immature Granulocytes % 0.4 0.0 - 1.0 % 08/23/2024 10:03 AM [facility] Neutrophil Absolute 3.81 1.60 - 7.50 x10E9/L 08/23/2024 10:03 AM [facility] Lymphocyte Absolute 0.89(L) 1.00 - 4.40 x10E9/L 08/23/2024 10:03 AM [facility] Monocyte Absolute 0.44 0.15 - 1.00 x10E9/L 08/23/2024 10:03 AM [facility] Eosinophil Absolute 0.07 0.00 - 0.60 x10E9/L 08/23/2024 10:03 AM [facility] Basophil Absolute 0.01 0.00 - 0.13 x10E9/L 08/23/2024 10:03 AM [facility] Blood BLOOD SPECIMEN / Unknown Venipuncture / Unknown 08/23/2024 9:40 AM [employer] 08/23/2024 9:56 AM [facility] Hussain Carias MD LAB - HEMATOLOGY ORD ERABLES [facility] [address] [place] [address], [facility] [phone] * (ABNORMAL) COMPREHENSIVE METABOLIC PANEL (08/23/2024 9:40 AM [facility]) Only the most recent of98 resultswithin the time period is included. BUN 9 7 - 26 mg/dL 08/23/2024 10:23 AM [facility] Creatinine 0.63 0.56 - 0.96 mg/dL 08/23/2024 10:23 AM [facility] Sodium 141 136 - 145 mmol/L 08/23/2024 10:23 AM [facility] Potassium 3.5 3.5 - 4.5 mmol/L 08/23/2024 10:23 AM [facility] Chloride 112(H) 98 - 107 mmol/L 08/23/2024 10:23 AM [facility] CO2 19(L) 22 - 29 mmol/L 08/23/2024 10:23 AM [facility] Glucose 155(H) 70 - 99 mg/dL 08/23/2024 10:23 AM [facility] Calcium 9.3 8.4 - 10.2 mg/dL 08/23/2024 10:23 AM [facility] Protein Total 7.0 6.0 - 8.3 g/dL 08/23/2024 10:23 AM [facility] Albumin 3.7 3.4 - 5.0 g/dL 08/23/2024 10:23 AM [facility] Bilirubin Total 0.4 0.2 - 1.2 mg/dL 08/23/2024 10:23 AM [facility] Alkaline Phosphatase 106 40 - 150 U/L 08/23/2024 10:23 AM [facility] ALT 18 5 - 55 U/L 08/23/2024 10:23 AM [facility] AST 18 5 - 34 U/L 08/23/2024 10:23 AM [facility] Anion Gap 10 6 - 16 08/23/2024 10:23 AM [facility] BUN/Creatinine Ratio 14 7 - 23 08/23/2024 10:23 AM [facility] Osmolality Calculated 294 275 - 295 mOsm/kg 08/23/2024 10:23 AM [facility] Albumin/Globulin Ratio 1.1 1.1 - 2.3 08/23/2024 10:23 AM [facility] eGFR by CKD-EPI >90 >=90 mL/min/1.7 3 m2 08/23/2024 10:23 AM [facility] Blood BLOOD SPECIMEN / Unknown Venipuncture / Unknown 08/23/2024 9:40 AM [employer] 08/23/2024 9:56 AM [employer] Hussain Carias MD LAB - CHEMISTRY JON NAIDU Performing Organization Address City/[facility]/ZIP Co de Phone Number [address] [address], [facility] [phone] * (ABNORMAL) PHOSPHORUS BLOOD (08/23/2024 9:40 AM [employer]) Only the most recent of93 resultswithin the time period is included. Phosphorus 2.6(L) 2.9 - 5.1 mg/dL 08/23/2024 10:23 AM [facility] Blood BLOOD SPECIMEN / Unknown Venipuncture / Unknown 08/23/2024 9:40 AM [employer] 08/23/2024 9:56 AM [employer] Hussain Carias MD LAB - CHEMISTRY JON NAIDU Performing Organization Address City/[facility]/ZIP Co de Phone Number [address] [address], [facility] [phone] * MAGNESIUM BLOOD (08/23/2024 9:40 AM [employer]) Only the most recent of92 resultswithin the time period is included. Magnesium 1.9 1.6 - 2.6 mg/dL 08/23/2024 10:23 AM [employer] [facility] Blood BLOOD SPECIMEN / Unknown Venipuncture / Unknown 08/23/2024 9:40 AM [employer] 08/23/2024 9:56 AM [employer] Hussain Carias MD LAB - CHEMISTRY JON NAIDU [facility] Organization Address City/State/ZIP Co de Phone Number [facility] [address] [place] [address], [facility] [phone] * XR Knee Right 3Vw (06/25/2024 12:43 PM CDT) Anatomical Region Laterality Modality Lower Extremity Digital Radiogra phy 06/25/2024 3:49 PM CDT Impressions 06/28/2024 9:54 AM CDT IMPRESSION: No acute fracture or dislocation identified. Report dictated by Sivakumar Garrido DO (residential remodeling subcontractor). I, Sergio Arango MD have personally reviewed and interpreted this examination/study. > Interpreting Provider: Sergio Arango MD on 06/28/2024 9:54 AM Narrative 06/28/2024 9:54 AM CDT PROCEDURE: ??XR KNEE RIGHT 3VW, DATE/TIME OF EXAM: ??06/25/2024 12:44 PM, LOCATION ??[facility] INDICATION: M25.561: Acute pain of right [...] DATE/TIME OF EXAM: 06/25/2024 12:44 PM, LOCATION [facility] INDICATION: M25.561: Acute pain of right [...] identified. Report dictated by Sivakumar Garrido DO (residential remodeling subcontractor). I, Sergio Arango MD have personally reviewed and interpreted this examination/study. > Interpreting Provider: Sergio Arango MD on 06/28/2024 9:54 AM Rossana Jay EXPRESS MANAGER-DIGITAL MARKETING PROGRAM MANAGER DIAGNOSTIC IMAGING O RDERABLES * (ABNORMAL) URIC ACID BLOOD (06/25/2024 11:19 AM CDT) Only the most recent of52 resultswithin the time period is included. [facility] Uric Acid 6.5(H) 2.6 - 6.0 mg/dL 06/25/2024 11:56 AM CDT [facility] Blood BLOOD SPECIMEN / Unknown Venipuncture / Unknown 06/25/2024 11:19 AM CDT 06/25/2024 11:32 AM CDT Britni Winston PA-C LAB - CHEMISTRY JON NAIDU Performing Organization Address City/[facility]/ZIP Co de Phone Number [facility] [address] [address], [facility] [phone] * TYPE + SCREEN PANEL (06/25/2024 11:19 AM CDT) Only the most recent of51 resultswithin the time period is included. [facility] Antibody Screen NEG 12:16 PM CDT [facility] ABO Rh O POS 06/25/2024 12:16 PM CDT [facility] Blood Bank BLOOD SPECIMEN / Unknown Venipuncture / Unknown 06/25/2024 11:19 AM CDT 06/25/2024 11:35 AM CDT Britni Winston PA-C LAB - BLOOD BANK MANJULA HONG [facility] [address] [place] [address], [place] [phone] * ERYTHROCYTE SEDIMENTATION RATE (06/25/2024 11:19 AM CDT) Erythrocyte Sedimentation Rate Westergren 17 0 - 20 MM/HR 06/25/2024 12:25 PM CDT [facility] Blood BLOOD SPECIMEN / Unknown Venipuncture / Unknown 06/25/2024 11:19 AM CDT 06/25/2024 11:32 AM CDT Rossana Jay APRNNIGEL LAB - HEMATOLOGY ORD ERABLES [address] [address], [place] [phone] * LDH BLOOD (06/25/2024 11:19 AM CDT) Only the most recent of49 resultswithin the time period is included. Pathologist [facility] LDH Total 182 125 - 243 Units/L 06/25/2024 11:56 AM CDT [facility] Blood BLOOD SPECIMEN / Unknown Venipuncture / Unknown 06/25/2024 11:19 AM CDT 06/25/2024 11:32 AM CDT Britni Winston PA-C LAB - CHEMISTRY ORDE ELYSIA [address] [address], [place] [phone] * AR SONO EXAM, TRANSVAGINAL, AR US PELVIC NONOB REAL-TIME IMG COMPLETE (04/19/2024 2:06 PM CDT) Narrative Amy Mauricio - 04/19/2024 2:06 PM CDT Amy Mauricio ? 04/19/2024 ??2:07 PM Documentation in digisonics. Thanh Green MD PROCEDURE/MINOR SURG ICAL ORDERABLES * IMAGING RADIOLOGY XRAY RESULTS ORDER (04/19/2024) Only the most recent of2 resultswithin the time period is included. Anatomical Region Laterality Modality Other Narrative 04/19/2024 Ordered by an unspecified provider. Scanned Document IMAGING * COPPER BLOOD (03/31/2024 12:18 PM CDT) Copper 114.0 80.0 - 155.0 ug/dL 04/01/2024 5:17 PM CDT [facility] ([facility]) Comment: INTERPRETIVE INFORMATION: Copper, Serum or Plasma Elevated results may be due to skin or collection-related contamination, including the use of a noncertified metal-free collection/transport tube. If contamination concerns exist due to elevated levels of serum/plasma copper, confirmation with a second specimen collected in a certified metal-free tube is recommended. Serum copper may be elevated with infection, inflammation, stress, and copper supplementation. In females, elevated copper may also be caused by oral contraceptives and (concentrations may be elevated up to 3 times normal during the third trimester). This test was developed and its performance characteristics determined by [facility]. It has not been cleared or approved by the [place] Food and Drug Administration. This test was performed in a CLIA certified laboratory and is intended for clinical purposes. Performed By: [facility] [employer] [address] [place] [address] Transition Program Manager: Ebenezer Shipman MD, PhD CLIA Number: [id number] Blood BLOOD SPECIMEN / Unknown Venipuncture / Unknown 03/31/2024 12:18 PM CDT 03/31/2024 12:30 PM CDT Britni Winston PA-C LAB - CHEMISTRY JON NAIDU [facility] [employer] [facility]) [address] * FOLATE (03/31/2024 12:18 PM CDT) Folate 13.5 7.0 - 31.4 ng/mL 03/31/2024 1:41 PM CDT [facility] Blood BLOOD SPECIMEN / Unknown Venipuncture / Unknown 03/31/2024 12:18 PM CDT 03/31/2024 12:35 PM CDT Britni Winston PA-C LAB - CHEMISTRY JON JORDANQI Performing Organization Address City/[facility]/ZIP Co de Phone Number [facility] [address] [place] [address], [place] [phone] * VITAMIN B12 (03/31/2024 11:22 AM CDT) Vitamin B12 267 213 - 816 pg/mL 03/31/2024 12:32 PM CDT [facility] Blood BLOOD SPECIMEN / Unknown Venipuncture / Unknown 03/31/2024 11:22 AM CDT 03/31/2024 11:26 AM CDT Britni Winston PA-C LAB - CHEMISTRY JON NAIDU Performing Organization Address [facility]/ZIP Co de Phone Number [address] [address], [place] [phone] * RETINAL ANALYSIS OCT (03/22/2024 7:58 AM CDT) Anatomical Region Laterality Modality Head External-Camera Photography Narrative 03/22/2024 9:24 AM CDT OD: Normal foveal contour, vitreous cells (resolving VH) OS: Normal foveal contour, vitreous cells (resolving VH) Darvin Jeronimo MD OPHTHALMOLOGY [place] ED ORD W PACS * IR CENTRAL LINE REMOVAL (03/03/2024 10:56 AM CDT) Anatomical Region Laterality Modality X-Ray Angiograph y 03/03/2024 11:1 5 AM CDT Impressions 03/03/2024 11:18 AM CDT IMPRESSION: Successful removal of Tri fusion Barone tunneled central line under fluoroscopic guidance. > Interpreting Provider: Maria G Mortensen MD on 03/03/2024 11:18 AM Narrative 03/03/2024 11:18 AM CDT PROCEDURE: ??IR CENTRAL LINE REMOVAL DATE/TIME OF EXAM: ??03/03/2024 7:58 AM CLINICAL INFORMATION: None relevant/not provided if blank. 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 FLUOROSCOPY DOSE: Reference air kerma (ka,r). FINDINGS: Following informed consent the patient was taken to the angiography suite where they were noted to have a Right ??internal jugular tunneled central venous catheter. Metal Engineering Process Worker film with the existing catheter was obtained. ??The existing dressing was removed, the skin was cleansed with chlorhexidine and sterile drapes were applied. Local anesthetic was infiltrated around the exit site and the area of the subcutaneous cuff. The exit site suture was removed. Using blunt and sharp dissection, the catheter was freed from surrounding tissues and with traction was brought to the surface. Holding pressure at the venotomy site in the neck, the catheter was removed in its entirety. Hemostasis was secured with pressure. Steri strips and CHG ointment were applied over the exit site wound and covered with gauze and Tegaderm. The patient tolerated the procedure without difficulty. I was present throughout the procedure. Procedure Note Maria G Mortensen MD - 03/03/2024 PROCEDURE: IR CENTRAL LINE REMOVAL DATE/TIME OF EXAM: 03/03/2024 7:58 AM CLINICAL INFORMATION: None relevant/not provided if blank. 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 FLUOROSCOPY DOSE: Reference air kerma (ka,r). FINDINGS: Following informed consent the patient was taken to the angiographysuite where they were noted to have a Right internal jugular tunneled central venous catheter. Metal Engineering Process Worker film with the existing catheter was obtained.The existing dressing was removed, the skin was cleansed with chlorhexidineand sterile drapes were applied. Local anesthetic was infiltrated around the exit site and the area of the subcutaneous cuff. The exit site suturewas removed. Using blunt and sharp dissection, the catheter was freed from surrounding tissues and with traction was brought to the surface.Holding pressure at the venotomy site in the neck, the catheter was removed inits entirety. Hemostasis was secured with pressure. Steri strips and CHG ointment were applied over the exit site wound and covered with gauzeand Tegaderm. The patient tolerated the procedure without difficulty. I was present throughout the procedure. IMPRESSION: Successful removal of Tri fusion Barone tunneled central line under fluoroscopic guidance. > Interpreting Provider: Maria G Mortensen MD on 03/03/2024 11:18 AM Britni Winston PA-C IR ORDERABLES * HCG URINE QUALITATIVE - POCT (IP) INTERFACED (03/03/2024 8:41 AM CDT) HCG Qual Urine Negative Negative 03/03/2024 8:48 AM CDT [facility] Urine URINE / Unknown 03/03/2024 8 :41 AM CDT 03/03/2024 8:48 AM CDT Britni Winston PA-C LAB - POINT OF CARE ORDERABLES Performing Organization Address City/[facility]/ZIP Co de Phone Number [address] [address], [facility] [phone] * HCG URINE QUAL POCT NOTIFICATION (03/03/2024 8:38 AM CDT) Comment Notification Label Only - See Separate Report 03/03/2024 10:00 AM CDT [facility] Urine URINE / Unknown 03/03/2024 8 :38 AM CDT 03/03/2024 8:38 AM CDT Maria G Mortensen MD LAB - URINALYSIS ORD ERABLES Performing Organization Address City/[facility]/ZIP Co de Phone Number [address] [address], [place] [phone] * RETINAL ANALYSIS OCT (03/02/2024 12:52 PM CDT) Anatomical Region Laterality Modality Head External-Camera Photography Narrative 03/02/2024 2:12 PM CDT Images from the original result were not included. Song Hobson MD OPHTHALMOLOGY SCHED ORD W PACS * (ABNORMAL) SLIDE SCAN HEMATOLOGY (02/26/2024 1:12 PM CDT) Only the most recent of3 resultswithin the time period is included. Pathologist [facility] RBC Morphology REVIEWED 02/26/2024 2:09 PM CDT [facility] Microcytosis MODERATE(A) (none) 02/26/2024 2:09 PM CDT [facility] Polychromatic Cells MODERATE(A) (none) 02/26/2024 2:09 PM CDT [facility] Schistocytes FEW(A) (none) 02/26/2024 2:09 PM CDT [facility] Blood BLOOD SPECIMEN / Unknown Venipuncture / Unknown 02/26/2024 1:12 PM CDT 02/26/2024 1:23 PM CDT Britni Winston PA-C LAB - HEMATOLOGY ORD ERABLES Performing Organization Address City/[facility]/ZIP Co de Phone Number [facility] [address] [place] [address], [facility] [phone] * TRANSFUSE RED BLOOD CELL LEUKOREDUCED UNIT(S) (02/06/2024 12:58 PM CDT) Hussain Carias MD NURSING - BLOOD PROD TRANSFUSION * PREPARE (CROSSMATCH) RBC UNIT(S), 1 Units (02/06/2024 11:14 AM CDT) Only the most recent of23 resultswithin the time period is included. [facility] Unit Description AS1 LR PRBC IRR [facility] BLOOD [facility] LAB Unit ABO O [facility] Unit Rh POS [facility] Product Number R04 [facility] B LOOD [facility] LAB Unit Donor # [id number] [facility] Unit Status transfused [facility] BLO OD BANK LAB Product Code [id number] [facility] B[facility] OD [facility] LAB Blood Type Barcode 5100 [facility] LAB Expiration Date [id number] S BLOOD BANK LAB Blood Bank BLOOD SPECIMEN / Unknown 02/06/2024 10:12 AM CDT Hussain Carias MD LAB - BLOOD BANK ORD ERABLES [facility] LAB [address] [place] [address], [facility] [phone] * (ABNORMAL) DIFFERENTIAL MANUAL (02/02/2024 11:10 AM CDT) Only the most recent of45 resultswithin the time period is included. Neutrophil % 48 41 - 74 % 02/02/2024 12:25 PM CDT [facility] Lymphocyte % 37 17 - 47 % 02/02/2024 12:25 PM T [facility] Monocyte % 15(H) 3 - 11 % 02/02/2024 12:25 PM CDT [facility] Neutrophil Absolute 1.87 1.60 - 7.50 x10E9/L 02/02/2024 12:25 PM T [facility] Lymphocyte Absolute 1.44 1.00 - 4.40 x10E9/L 02/02/2024 12:25 PM T [facility] Monocyte Absolute 0.59 0.15 - 1.00 x10E9/L 02/02/2024 12:25 PM T [facility] RBC Morphology REVIEWED 02/02/2024 12:25 PM T [facility] Microcytosis MANY(A) (none) 02/02/2024 12:25 PM [facility] Blood BLOOD SPECIMEN / Unknown Venipuncture / Unknown 02/02/2024 11:10 AM CDT 02/02/2024 11:31 AM CDT Britni Winston PA-C LAB - HEMATOLOGY ORD ERABLES [facility] [address] [place] [address], [facility] [phone] * (ABNORMAL) PLATELET COUNT AUTO (01/28/2024 11:17 AM CDT) Only the most recent of20 resultswithin the time period is included. Pathologist [facility] Platelet Count 64(L) 150 - 420 x10E9/L 01/28/2024 11:41 AM T [facility] Blood BLOOD SPECIMEN / Unknown Line Draw / Unknown 01/28/2024 11:17 AM CDT 01/28/2024 11:29 AM CDT Britni Winston PA-C LAB - HEMATOLOGY ORD ERABLES [address] [address], [place] [phone] * TRANSFUSE PLATELET PHERESIS UNIT(S) (01/28/2024 11:08 AM CDT) Britni Winston PA-C NURSING - BLOOD PROD TRANSFUSION * HCG URINE QUALITATIVE (01/28/2024 10:03 AM CDT) Only the most recent of6 resultswithin the time period is included. [facility] Test Urine Negative Negative 01/28/2024 10:28 AM CDT [facility] Urine URINE / Unknown Collection / Unknown 01/28/2024 10:03 AM CDT 01/28/2024 10:08 AM CDT Britni Winston PA-C LAB - URINALYSIS ORD ERABLES [address] [address], [place] [phone] * TRANSFUSE PLATELET PHERESIS UNIT(S) (01/26/2024 2:38 PM CDT) [place] EXPRESS MANAGER-DIGITAL MARKETING PROGRAM MANAGER NURSING - B LOOD PROD TRANSFUSION * PREPARE PLATELET PHERESIS UNIT(S), 1 Units (01/26/2024 1:54 PM CDT) Only the most recent of33 resultswithin the time period is included. Pathologist [facility] Unit Description LRPLTphere B7 IR [facility] BLOOD [facility] LAB Unit ABO AB [facility] Unit Rh POS [facility]OD [facility] Product Number P32 [facility] B LOOD B[facility] LAB Unit Donor # [id number] [facility] Unit Status transfused [facility] BLO OD [facility]ANK LAB Product Code [id number] [facility] OD [facility] LAB Blood Type Barcode 8400 [facility] B[facility] LAB Expiration Date [id number] S BLOOD BANK LAB Blood Bank BLOOD SPECIMEN / Unknown 01/26/2024 12:51 PM CDT [place] EXPRESS MANAGER-DIGITAL MARKETING PROGRAM MANAGER LAB - BLOOD BANK ORDERABLES [facility] [address] [place] [address], [facility] [phone] * (ABNORMAL) BASIC METABOLIC PANEL (CALCIUM TOTAL) (01/23/2024 12:39 AM CDT) Only the most recent of8 resultswithin the time period is included. BUN 6(L) 7 - 26 mg/dL 01/23/2024 1:18 AM [facility] Creatinine 0.61 0.56 - 0.96 mg/dL 01/23/2024 1:18 AM [facility] Sodium 142 136 - 145 mmol/L 01/23/2024 1:18 AM [facility] Potassium 3.3(L) 3.5 - 4.5 mmol/L 01/23/2024 1:18 AM [facility] Chloride 113(H) 98 - 107 mmol/L 01/23/2024 1:18 AM [facility] CO2 22 22 - 29 mmol/L 01/23/2024 1:18 AM [facility] Glucose 97 70 - 115 mg/dL 01/23/2024 1:18 AM [facility] Calcium 9.4 8.4 - 10.2 mg/dL 01/23/2024 1:18 AM [facility] Anion Gap 7 6 - 16 01/23/2024 1:18 AM [facility] BUN/Creatinine Ratio 10 7 - 23 01/23/2024 1:18 AM [facility] Osmolality Calculated 292 275 - 295 mOsm/kg 01/23/2024 1:18 AM [facility] eGFR by CKD-EPI >90 >=90 mL/min/1.7 3 m2 01/23/2024 1:18 AM [facility] Blood BLOOD SPECIMEN / Unknown Venipuncture / Unknown 01/23/2024 12:39 AM CDT 01/23/2024 12:48 AM CDT [facility] ORDE ELYSIA [facility] [address] [place] [address], [facility] [phone] * (ABNORMAL) CBC W/O DIFFERENTIAL (01/22/2024 6:04 PM CDT) Only the most recent of3 resultswithin the time period is included. WBC 4.3 4.0 - 10.7 x10E9/L 01/22/2024 6:46 PM T [facility] RBC Count 2.85(L) 3.90 - 5.20 x10E12/L 01/22/2024 6:46 PM [facility] Hemoglobin 8.2(L) 11.9 - 15.8 g/dL 01/22/2024 6:46 PM [facility] Hematocrit 22.7(L) 34.8 - 46.1 % 01/22/2024 6:46 PM [facility] MCV 79.6(L) 80.0 - 98.0 fL 01/22/2024 6:46 PM [facility] MCH 28.8 26.7 - 33.6 pg 01/22/2024 6:46 PM [facility] MCHC 36.1 31.7 - 36.3 g/dL 01/22/2024 6:46 PM [facility] RDW-CV 14.2 11.3 - 14.8 % 01/22/2024 6:46 PM [facility] Platelet Count 42(L) 150 - 420 x10E9/L 01/22/2024 6:46 PM [facility] MPV 8.7 7.8 - 11.4 fL 01/22/2024 6:46 PM [facility] Blood BLOOD SPECIMEN / Unknown Venipuncture / Unknown 01/22/2024 6:04 PM CDT 01/22/2024 6:10 PM CDT Kate Price LAB - HEMATOLOGY ORD ERABLES [facility] [address] [place] [address], [place] [phone] * TRANSFUSE PLATELET PHERESIS UNIT(S) (01/22/2024 5:36 PM CDT) Kate Dillonvale DO NURSING - BLOOD PROD TRANSFUSION * (ABNORMAL) HEMOGLOBIN (01/20/2024 11:53 AM CDT) Hemoglobin 8.2(L) 11.9 - 15.8 g/dL 01/20/2024 12:12 PM CDT [facility] Blood BLOOD SPECIMEN / Unknown Venipuncture / Unknown 01/20/2024 11:53 AM CDT 01/20/2024 12:07 PM CDT Kate Dillonvale DO LAB - HEMATOLOGY ORD ERABLES Performing Organization Address City/[facility]/ZIP Co de Phone Number [facility] [address] [place] [address], [place] [phone] * TRANSFUSE RED BLOOD CELL LEUKOREDUCED UNIT(S) (01/20/2024 11:21 AM CDT) Kate Dillonvale DO NURSING - BLOOD PROD TRANSFUSION * TRANSFUSE PLATELET PHERESIS UNIT(S) (01/20/2024 9:21 AM CDT) Kate Dillonvale DO NURSING - BLOOD PROD TRANSFUSION * (ABNORMAL) C-REACTIVE PROTEIN (01/20/2024 3:37 AM CDT) C-Reactive Protein 13.5(H) <=0.5 mg/dL 01/20/2024 4:13 AM CDT [facility] Blood BLOOD SPECIMEN / Unknown Venipuncture / Unknown 01/20/2024 3:37 AM CDT 01/20/2024 3:46 AM CDT Kate Dillonvale DO LAB - CHEMISTRY ORDE RABLES [facility] [address] [place] [address], [place] [phone] * CT CHEST PE W ABD PELVIS W CONT (01/19/2024 9:26 PM CDT) Anatomical Region Laterality Modality Chest, Abdomen, Pelvis Computed Tomography 01/19/2024 9:35 PM CDT Impressions 01/19/2024 11:59 PM CDT Impression: 1.No evidence of central pulmonary embolism. Evaluation of segmental and subsegmental pulmonary arteries is degraded by suboptimal contrast opacification. The previously described segmental PE within the right pulmonary artery is not well-visualized. 2.Diffuse bilateral tree-in-bud opacities throughout bilateral lungs, likely infectious, inflammatory etiology. Other possibilities are aspiration, smoking-related or hypersensitivity pneumonitis. 3.Redemonstrated perirectal fat stranding and mild rectal wall thickening without a confluent fluid collection, not significantly changed compared to prior, likely sequelae of colitis. > Dictated by Partha Ryan MD (residential remodeling subcontractor). I, Feliciano Ordaz MD have personally reviewed and interpreted this examination/study. 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 TECHNIQUE: CT of the chest was performed following the uneventful administration of 100 mL of Isovue 370 intravenous contrast according to a pulmonary embolism protocol. CT of the abdomen and pelvis was also performed during the portal venous phase according to standard protocol. Multiplanar reconstructions were created. Findings: Chest: Lines and tubes: There is a right internal jugular approach central venous catheter with its tip terminating within the right atrium. Study Quality This examination for the diagnosis of pulmonary embolism is suboptimal. Pulmonary Arteries: No evidence of central pulmonary embolism. Evaluation of segmental and subsegmental pulmonary arteries is degraded by suboptimal contrast opacification. Thoracic Vasculature: No vascular abnormality is present. Lower Neck and Axillae: There is a hypoattenuating left thyroid lobe nodule measuring up to 0.7 cm in maximal diameter (series 5 image 6). No axillary lymphadenopathy is identified. Lungs: There are diffuse bilateral tree-in-bud opacities throughout the bilateral lungs, likely infectious or inflammatory. No suspicious pulmonary nodules are identified. No pleural fluid or pneumothorax is present. Heart and Pericardium: The cardiac chambers are normal in size. No pericardial fluid or thickening is present. Mediastinum and Naima: No enlarged lymph nodes are present. Other findings: None. Abdomen/pelvis: Liver: Normal. Gallbladder and Bile Ducts: The gallbladder is absent. No intrahepatic or extra hepatic biliary ductal dilatation. Spleen: Normal. Pancreas: Normal. Adrenals: Normal. Kidneys: The bilateral kidneys enhance symmetrically without evidence of hydronephrosis or nephrolithiasis. Gastrointestinal: There is redemonstrated pararectal fat stranding adjacent to the rectum, right greater than left, not significantly changed compared to prior. No confluent fluid collection is identified to suggest abscess formation. There is mild mucosal thickening of the associated rectal wall at this level, not significantly changed. The stomach, small bowel and large bowel are otherwise unremarkable. Normal appendix. Mesentery/Peritoneum/Retroperitoneum: No free intraperitoneal air. No free fluid in the abdomen or pelvis. Bladder: Normal. Reproductive Organs: The uterus is normal. Within the left adnexa there is a fat and calcium containing mature teratoma measuring up to 3.6 cm in maximal diameter (series 12 image 55), unchanged. The right adnexa is normal. Abdominal Vasculature: No vascular abnormality is present. Bones: Bone windows demonstrate no suspicious lytic or blastic lesions. The visible osseous structures are intact. Soft tissues: Normal. 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 TECHNIQUE: CT of the chest was performed following the uneventful administration of 100 mL of Isovue 370 intravenous contrast according toa pulmonary embolism protocol. CT of the abdomen and pelvis was also performed during the portal venous phase according to standard protocol. Multiplanar reconstructions were created. Findings: Chest: Lines and tubes: There is a right internal jugular approach central venous catheter withits tip terminating within the right atrium. Study Quality This examination for the diagnosis of pulmonary embolism is suboptimal. Pulmonary Arteries: No evidence of central pulmonary embolism. Evaluation of segmental and subsegmental pulmonary arteries is degraded by suboptimal contrast opacification. Thoracic Vasculature: No vascular abnormality is present. Lower Neck and Axillae: There is a hypoattenuating left thyroid lobe nodule measuring up to 0.7cm in maximal diameter (series 5 image 6). No axillary lymphadenopathy is identified. Lungs: There are diffuse bilateral tree-in-bud opacities throughout thebilateral lungs, likely infectious or inflammatory. No suspicious pulmonarynodules are identified. No pleural fluid or pneumothorax is present. Heart and Pericardium: The cardiac chambers are normal in size. No pericardial fluid orthickening is present. Mediastinum and Naima: No enlarged lymph nodes are present. Other findings: None. Abdomen/pelvis: Liver: Normal. Gallbladder and Bile Ducts: The gallbladder is absent. No intrahepatic or extra hepatic biliaryductal dilatation. Spleen: Normal. Pancreas: Normal. Adrenals: Normal. Kidneys: The bilateral kidneys enhance symmetrically without evidence of hydronephrosis or nephrolithiasis. Gastrointestinal: There is redemonstrated pararectal fat stranding adjacent to the rectum, right greater than left, not significantly changed compared to prior. No confluent fluid collection is identified to suggest abscess formation. There is mild mucosal thickening of the associated rectal wall at this level, not significantly changed. The stomach, small bowel and largebowel are otherwise unremarkable. Normal appendix. Mesentery/Peritoneum/Retroperitoneum: No free intraperitoneal air. No free fluid in the abdomen or pelvis. Bladder: Normal. Reproductive Organs: The uterus is normal. Within the left adnexa there is a fat and calcium containing mature teratoma measuring up to 3.6 cm in maximal diameter (series 12 image 55), unchanged. The right adnexa is normal. Abdominal Vasculature: No vascular abnormality is present. Bones: Bone windows demonstrate no suspicious lytic or blastic lesions. The visible osseous structures are intact. Soft tissues: Normal. Impression: 1.No evidence of central pulmonary embolism. Evaluation of segmental and subsegmental pulmonary arteries is degraded by suboptimal contrast opacification. The previously described segmental PE within the right pulmonary artery is not well-visualized. 2.Diffuse bilateral tree-in-bud opacities throughout bilateral lungs, likely infectious, inflammatory etiology. Other possibilities are aspiration, smoking-related or hypersensitivity pneumonitis. 3.Redemonstrated perirectal fat stranding and mild rectal wallthickening without a confluent fluid collection, not significantly changed comparedto prior, likely sequelae of colitis. > Dictated by Partha Ryan MD (residential remodeling subcontractor). I, Feliciano Ordaz MD have personally reviewed and interpreted this examination/study. > Interpreting Provider: Feliciano Ordaz MD on 411:59 PM Kate Price DO CT ORDERABLES * PATHOLOGY PERIPHERAL SMEAR REVIEW (01/19/2024 5:13 PM CDT) Only the most recent of4 resultswithin the time period is included. Path Review Confirmed 01/20/2024 3:59 PM CDT [facility] Blood BLOOD SPECIMEN / Unknown Venipuncture / Unknown 01/19/2024 5:13 PM CDT 01/19/2024 5:29 PM CDT Narrative [facility] - 01/20/2024 3:59 PM CDT Final Diagnosis: Peripheral blood, smear - Leukopenia with reactive changes - Microcytic anemia - Thrombocytopenia Interpretation: Review of the peripheral blood smear confirms the manual differential data. Leukocytes are decreased. Lymphocytes, neutrophils, and monocytes are decreased and show reactive changes. No blasts are identified. RBCs are microcytic, normochromic, and show anisopoikilocytosis. There are at least two RBC populations, reflecting recent RBC transfusion. Platelets are decreased with rare large forms. Clinical correlation is recommended. Clinical history: The patient is 38 year old woman with PMHx of AML that is in remission. She is currently admitted for a perianal abscess. Zo Reyes MD Attending Physician Department of Pathology Transfusion Medicine Kate Price DO LAB - PATHOLOGY/CYTO LOGY ORDERABLES [facility] [address] [place] [address], [facility] [phone] * TRANSFUSE PLATELET PHERESIS UNIT(S) (01/19/2024 11:16 AM CDT) [facility] NURSING - BLOOD PROD TRANSFUSION * CULTURE BLOOD (01/19/2024 11:11 AM CDT) Only the most recent of3 resultswithin the time period is included. Culture No growth day 5 DAVID 01/24/2024 2:31 PM CDT [facility] Blood PERIPHERAL BLOOD / Unknown Venipuncture / Unknown 01/19/2024 11:11 AM CDT 01/19/2024 11:26 AM CDT [facility] LAB - MICROBIOLOGY O RDERABLES Performing Organization Address [facility] Co de Phone Number [facility] [address] [place] [address], [facility] [phone] * EKG 12-LEAD (01/19/2024 10:37 AM CDT) Only the most recent of4 resultswithin the time period is included. Ventricular Rate 130 BPM SL MUSE Atrial Rate 130 BPM [facility] MUSE P-R Interval 132 ms [facility] MUSE QRS Duration ms 68 ms [facility] MUSE Q-T Interval ms 298 ms [facility] MUSE QTC Calculation (Bezet) 438 ms [facility] MUSE Calculated P Wyatt 56 degrees [facility] MUSE Calculated R Wyatt 47 degrees [facility] MUSE Calculated T Wyatt 13 degrees [facility] MUSE Interpretation EKG SINUS TACHYCARDIA WITH FREQUENT PREMATURE VENTRICULAR COMPLEXES NONSPECIFIC T WAVE ABNORMALITY ABNORMAL ECG NO PREVIOUS ECGS AVAILABLE Confirmed by JULISSA DUMONT MD ([id number]) on 01/25/2024 9:00:56 PM [facility] MUSE 01/19/2024 10:3 7 AM CDT 01/25/2024 9:00 PM CDT [facility] ECG ORDERABLES Performing Organization Address [facility]/State/ZIP Co de Phone Number [facility] MUSE * VAS BILATERAL VENOUS DUPLEX UE (01/16/2024 4:40 PM CDT) Anatomical Region Laterality Modality Upper Extremity Intravascular Ul trasound 01/16/2024 4:01 PM CDT Narrative Procedure Note Sivakumar Peoples MD - 01/17/2024 Britni Winston PA-C VASCULAR LAB ORDERAB LES * VAS BILATERAL VENOUS DUPLEX LE (01/16/2024 4:40 PM CDT) Only the most recent of2 resultswithin the time period is included. Anatomical Region Laterality Modality Lower Extremity Intravascular Ul trasound 01/16/2024 3:49 PM CDT Narrative Procedure Note Sivakumar Peoples MD - 01/17/2024 Britni Winston PA-C VASCULAR LAB ORDERAB LES * CT ABDOMEN PELVIS W CONTRAST (01/16/2024 1:45 PM CDT) Anatomical Region Laterality Modality Abdomen, Pelvis Computed Tomogra phy 01/16/2024 2:09 PM CDT Impressions 01/16/2024 4:49 PM CDT Impression: 1.Central filling defect within a segmental branch of the right pulmonary artery which may represent an acute pulmonary embolism, incompletely characterized. Recommend further evaluation with CT PE study. 2.Perirectal fat stranding without associated fluid collections or abnormality of the rectum which likely represents infection/inflammation. 3.2.8 x 3.0 cm heterogenous mass within the left ovary containing areas of fat density and multiple calcified foci which may represent a teratoma. Critical findings regarding the possible pulmonary embolism were discussed in detail with the patient's care provider, GERALDINE Leija by Dr. Valdes via telephone at 2:20 PM on 01/16/2024 with readback comprehension and verification. > Dictated by Jeremy Valdes MD (residential remodeling subcontractor). > Dictated by Jeremy Valdes MD (Public Transit Specialist) 01/16/2024 2:09 PM Arlyn Bartholomew MD have personally reviewed and interpreted this examination/study. > Interpreting Provider: Arlyn Gannon MD on 01/16/2024 4:49 PM Narrative 01/16/2024 4:49 PM CDT PROCEDURE: ??CT ABDOMEN PELVIS W CONTRAST DATE/TIME OF EXAM: ??01/16/2024 1:46 PM Indication: C92.01: Acute myeloid leukemia in remission (HCC) Additional History: Concern for a perianal abscess, new rectal pain. COMPARISON: None. TECHNIQUE: CT of the abdomen and pelvis was performed following the uneventful administration of 100 mL of Isovue 370 intravenous contrast according to standard protocol. Findings: Partially visualized central venous catheter terminates in the superior right atrium. Lower Chest: Lung bases are clear. There is a central filling defect within a segmental branch of the right pulmonary artery which may represent an acute pulmonary embolism, however, is incompletely characterized on this study (series 3, image 14). Liver: Homogenous enhancement of the liver without focal lesion. Patent portal vein. Gallbladder and Bile Ducts: The gallbladder surgically absent. No biliary tract dilation. Spleen: Normal. Pancreas: Normal. Adrenals: Normal. Kidneys: Normal enhancement bilaterally, no nephrolithiasis or hydronephrosis. Gastrointestinal: The stomach and visualized loops of large and small bowel are unremarkable. Normal appendix. There is perirectal fat stranding which does not extend to the anus, right side greater than left (series 3, image 135). No discrete fluid collections are present. The rectum is unremarkable in appearance. There are prominent lymph nodes in this area which are likely reactive. Mesentery/Peritoneum/Retroperitoneum: No free fluid in the abdomen or pelvis. No free intraperitoneal air. No abdominal or retroperitoneal lymphadenopathy. Bladder: Normal. Reproductive Organs: The uterus is normal. Unremarkable right ovary. The left ovary is enlarged and contains a 2.8 x 3.0 cm heterogenous lesion containing areas of fat density and multiple calcified foci which may represent a teratoma (series 3, image 109). An adjacent cyst is noted in the left ovary. Vasculature: No vascular abnormality is present. Bones: Bone windows demonstrate no suspicious lytic or blastic lesions. The visible osseous structures are intact. Soft tissues: Normal. Procedure Note Marycruz Gannon MD - 01/16/2024 PROCEDURE: CT ABDOMEN PELVIS W CONTRAST DATE/TIME OF EXAM: 01/16/2024 1:46 PM Indication: C92.01: Acute myeloid leukemia in remission (HCC) Additional History: Concern for a perianal abscess, new rectal pain. COMPARISON: None. TECHNIQUE: CT of the abdomen and pelvis was performed following the uneventful administration of 100 mL of Isovue 370 intravenous contrast according to standard protocol. Findings: Partially visualized central venous catheter terminates in the superior right atrium. Lower Chest: Lung bases are clear. There is a central filling defect within a segmental branch of the right pulmonary artery which may represent an acute pulmonary embolism,however, is incompletely characterized on this study (series 3, image 14). Liver: Homogenous enhancement of the liver without focal lesion. Patent portal vein. Gallbladder and Bile Ducts: The gallbladder surgically absent. No biliary tract dilation. Spleen: Normal. Pancreas: Normal. Adrenals: Normal. Kidneys: Normal enhancement bilaterally, no nephrolithiasis or hydronephrosis. Gastrointestinal: The stomach and visualized loops of large and small bowel areunremarkable. Normal appendix. There is perirectal fat stranding which does not extend to the anus,right side greater than left (series 3, image 135). No discrete fluidcollections are present. The rectum is unremarkable in appearance. There areprominent lymph nodes in this area which are likely reactive. Mesentery/Peritoneum/Retroperitoneum: No free fluid in the abdomen or pelvis. No free intraperitoneal air. No abdominal or retroperitoneal lymphadenopathy. Bladder: Normal. Reproductive Organs: The uterus is normal. Unremarkable right ovary. The left ovary is enlarged and contains a 2.8 x 3.0 cm heterogenouslesion containing areas of fat density and multiple calcified foci which may represent a teratoma (series 3, image 109). An adjacent cyst is noted in the left ovary. Vasculature: No vascular abnormality is present. Bones: Bone windows demonstrate no suspicious lytic or blastic lesions. The visible osseous structures are intact. Soft tissues: Normal. Impression: 1.Central filling defect within a segmental branch of the rightpulmonary artery which may represent an acute pulmonary embolism, incompletely characterized. Recommend further evaluation with CT PE study. 2.Perirectal fat stranding without associated fluid collections or abnormality of the rectum which likely represents infection/inflammation. 3.2.8 x 3.0 cm heterogenous mass within the left ovary containing areasof fat density and multiple calcified foci which may represent a teratoma. Critical findings regarding the possible pulmonary embolism werediscussed in detail with the patient's care provider, GERALDINE Leija by Dr. Lopez telephone at 2:20 PM on 01/16/2024 with readback comprehension and verification. > Dictated by Jeremy Valdes MD (residential remodeling subcontractor). > Dictated by Jeremy Valdes MD (Public Transit Specialist) 01/16/2024 2:09 PM IArlyn MD have personally reviewed and interpreted this examination/study. > Interpreting Provider: Arlyn Gannon MD on 01/16/2024 4:49 PM Britni Winston PA-C CT ORDERABLES * TRANSFUSE PLATELET PHERESIS UNIT(S) (01/16/2024 12:49 PM CDT) Britni Winston PA-C NURSING - BLOOD PROD TRANSFUSION * TRANSFUSE PLATELET PHERESIS UNIT(S) (01/14/2024 1:01 PM CDT) Kathryn Gomez EXPRESS MANAGER-DIGITAL MARKETING PROGRAM MANAGER NURSING - BLOOD PROD TRANSFUSION * TRANSFUSE RED BLOOD CELL LEUKOREDUCED UNIT(S) (01/12/2024 1:32 PM CDT) Britni Winston PA-C NURSING - BLOOD PROD TRANSFUSION * TRANSFUSE PLATELET PHERESIS UNIT(S) (01/09/2024 10:39 AM CDT) Britni Winston PA-C NURSING - BLOOD PROD TRANSFUSION * HCG BETA BLOOD QUANTITATIVE (01/09/2024 8:25 AM CDT) [facility] Beta-hCG Total Quantitative <3 mIU/mL 01/09/2024 9:39 AM CDT [facility] Comment: HCG Numeric Result Interpretation: ? Non- Females: ? < 5 mIU/mL ? Post-Menopausal Females: ??< 7 mIU/mL ? This assay is cleared for use in the early detection of only. It is not approved for any other uses such as tumor marker screening, tumor marker monitoring, etc. and should not be used for any other purposes. Blood BLOOD SPECIMEN / Unknown Venipuncture / Unknown 01/09/2024 8:25 AM CDT 01/09/2024 8:32 AM CDT Britni Winston PA-C LAB - CHEMISTRY JON NAIDU Performing Organization Address City/[facility]/ZIP Co de Phone Number [facility] [address] [place] [phone], [facility] [phone] * TRANSFUSE PLATELET PHERESIS UNIT(S) (01/07/2024 11:52 AM CDT) Britni Winston PA-C NURSING - BLOOD PROD TRANSFUSION * TRANSFUSE PLATELET PHERESIS UNIT(S) (01/07/2024 11:01 AM CDT) Britni Winston PA-C NURSING - BLOOD PROD TRANSFUSION * TRANSFUSE RED BLOOD CELL LEUKOREDUCED UNIT(S) (01/04/2024 1:38 PM CDT) Marshall Apodaca EXPRESS MANAGER-DIGITAL MARKETING PROGRAM MANAGER NURSING - BLOOD PROD TRANSFUSION * GLUCOSE - POINT OF CARE (01/04/2024 1:12 PM CDT) Only the most recent of74 resultswithin the time period is included. Glucose WB/POC 85 70 - 115 mg/dL 01/04/2024 3:02 PM CDT [facility] Specimen Type Cap Fingerstick 2023 3:02 PM CDT [facility] Blood BLOOD SPECIMEN / Unknown 01/04/2024 1:12 PM CDT 01/04/2024 3:02 PM CDT Mauro Canales MD LAB - POINT OF CARE ORDERABLES Performing Organization Address City/[facility]/ZIP Co de Phone Number [facility] [address] [place] [phone], [place] [phone] * (ABNORMAL) HEMOGLOBIN A1C (01/02/2024 6:08 AM CDT) Only the most recent of2 resultswithin the time period is included. Hemoglobin A1c 6.8(H) <=5.6 % 01/02/2024 9:40 AM CDT [facility] Estimated Average Glucose 148 mg/dL 01/02/2024 9:40 AM CDT [facility] Comment: HbA1c Interpretation: Normal : < 5.7% Pre-diabetes: 5.7-6.4% Diabetes: Equal to or greater than 6.5% Test results diagnostic of diabetes should be repeated for confirmation. Treatment target values recommended by ADA and other clinical organizations should be used to evaluate metabolic control in patients. Reference: [place] [employer], Standards of Care in Diabetes -2020 In patients 70 years and older consider HbA1c target range of 7.0-7.5% (Reference: Fede Jimenez et al. JAMDA. 2012) The Sebia assay for the measurement of HbA1c is a National Glycohemoglobin Standardization Program (NGSP) certified method. Blood BLOOD SPECIMEN / Unknown Venipuncture / Unknown 01/02/2024 6:08 AM CDT 01/02/2024 6:17 AM CDT Rogers Cazares PA-C LAB - CHEMISTRY ORD ERABLES [facility] [address] [place] [phone], [facility] [phone] * CT HEAD WO CONTRAST (01/01/2024 10:45 AM CDT) Only the most recent of4 resultswithin the time period is included. Anatomical Region Laterality Modality Head Computed Tomogra phy 01/01/2024 10:4 7 AM CDT Impressions 01/01/2024 11:21 AM CDT IMPRESSION: 1. No acute intracranial process. Report dictated by Haleigh Mosquera MD (residential remodeling subcontractor). I, Romie Sanchez MD have personally reviewed and interpreted this examination/study. > Interpreting Provider: Romie Sanchez MD on 01/01/2024 11:21 AM Narrative 01/01/2024 11:21 AM CDT PROCEDURE: ??CT HEAD WO CONTRAST, DATE/TIME OF EXAM: ??01/01/2024 10:45 AM, LOCATION ??[facility] INDICATION: W19.XXXA: Fall, initial encounter ADDITIONAL CLINICAL INFORMATION: Ordering Provider Reason For Exam: ??Rule out SAH or other acute process, s/p Pt's fall Technologist Note: Additional: EXAMINATION: Computed tomography (CT) of the head without contrast TECHNIQUE: CT of the head was performed without contrast according to standard protocol. COMPARISON: Comparison is made with a CT dated 11/19/2023 FINDINGS: No acute intracranial hemorrhage or intra- or extra-axial fluid collections are identified. The ventricles are of normal size, shape, and morphology. The basal cisterns are patent. No mass effect or midline shift is seen. The mejia-white matter differentiation is normal. Other than mild mucosal thickening of the left maxillary sinus, the visualized portions of the orbits, paranasal sinuses, and mastoids appear normal. No acute calvarial fracture is identified. Soft tissues is present overlying the occipital region of the skull. Procedure Note Romie Sanchez MD - 01/01/2024 PROCEDURE: CT HEAD WO CONTRAST, DATE/TIME OF EXAM: 01/01/2024 10:45 AM, LOCATION [facility] INDICATION: W19.XXXA: Fall, initial encounter ADDITIONAL CLINICAL INFORMATION: Ordering Provider Reason For Exam: Rule out SAH or other acute process, s/p Pt's fall Technologist Note: Additional: EXAMINATION: Computed tomography (CT) of the head without contrast TECHNIQUE: CT of the head was performed without contrast according to standard protocol. COMPARISON: Comparison is made with a CT dated 11/19/2023 FINDINGS: No acute intracranial hemorrhage or intra- or extra-axial fluidcollections are identified. The ventricles are of normal size, shape, andmorphology. The basal cisterns are patent. No mass effect or midline shift is seen.The mejia-white matter differentiation is normal. Other than mild mucosal thickening of the left maxillary sinus, the visualized portions of the orbits, paranasal sinuses, and mastoidsappear normal. No acute calvarial fracture is identified. Soft tissues is present overlying the occipital region of the skull. IMPRESSION: 1. No acute intracranial process. Report dictated by Haleigh Mosquera MD (residential remodeling subcontractor). I, Romie Sanchez MD have personally reviewed and interpreted this examination/study. > Interpreting Provider: Romie Sanchez MD on 01/01/2024 11:21 AM Rogers Cazares PA-C CT ORDERABLES * TRANSFUSE RED BLOOD CELL LEUKOREDUCED UNIT(S) (01/01/2024 3:44 AM CDT) Dominic Farah MD NURSING - BLOOD PROD TRANSFUSION * (ABNORMAL) PLATELET COUNT AUTO CITRATED BLOOD (12/30/2023 11:04 AM CDT) Platelet Count Citrated 34(L) 150 - 420 x10E9/L 12/30/2023 12:13 PM CDT [facility] Blood BLOOD SPECIMEN / Unknown Venipuncture / Unknown 12/30/2023 11:04 AM CDT 12/30/2023 11:08 AM CDT Lupe [facility]OPE[facility] LAB - HEMATOLOG Y ORDERABLES Performing Organization Address City/State/[facility] Co de Phone Number [address] [address], [facility] [phone] * TRANSFUSE PLATELET PHERESIS UNIT(S) (12/22/2023 12:03 PM CDT) Lupe [facility]OPEZ NURSING - BLOOD PROD TRANSFUSION * TRANSFUSE RED BLOOD CELL LEUKOREDUCED UNIT(S) (12/19/2023 12:44 PM CDT) Britni Winston PA-C NURSING - BLOOD PROD TRANSFUSION * TRANSFUSE PLATELET PHERESIS UNIT(S) (12/19/2023 10:54 AM CDT) Britni Winston PA-C NURSING - BLOOD PROD TRANSFUSION * XR CHEST 1VW PORTABLE (12/19/2023 10:49 AM CDT) Only the most recent of4 resultswithin the time period is included. Anatomical Region Laterality Modality Chest Radiographic Ammy ging 12/19/2023 10:4 8 AM CDT Narrative 12/19/2023 11:18 AM CDT PROCEDURE: ??XR CHEST 1VW PORTABLE, DATE/TIME OF EXAM: ??12/19/2023 10:32 AM, LOCATION ??[facility] INDICATION: R06.2: Wheezing ADDITIONAL CLINICAL INFORMATION: Ordering Provider Reason For Exam: ??wheezing COMPARISON: Chest x-ray 09/28/2023 FINDINGS/IMPRESSION: Right IJ approach tunneled central venous catheter that terminates at the superior cavoatrial junction. Minimal interstitial prominence in the lung bases, substantially decreased from 09/28/2023. Findings could be player services representative of small airways disease. Otherwise, no confluent consolidation, pleural effusion, or pneumothorax. Heart size is normal. Superior mediastinal contours are within normal limits. No acute osseous abnormality. > Dictated by Agustín Upton DO (Public Transit Specialist) Ludivina Bartholomew MD have personally reviewed and interpreted this examination/study. > Interpreting Provider: Ludivina Hayward MD on 12/19/2023 11:18 AM Procedure Note Ludivina Hayward MD - 12/19/2023 PROCEDURE: XR CHEST 1VW PORTABLE, DATE/TIME OF EXAM: 12/19/2023 10:32AM, LOCATION [facility] INDICATION: R06.2: Wheezing ADDITIONAL CLINICAL INFORMATION: Ordering Provider Reason For Exam: wheezing COMPARISON: Chest x-ray 09/28/2023 FINDINGS/IMPRESSION: Right IJ approach tunneled central venous catheter that terminates atthe superior cavoatrial junction. Minimal interstitial prominence in the lung bases, substantiallydecreased from 09/28/2023. Findings could be player services representative of small airwaysdisease. Otherwise, no confluent consolidation, pleural effusion, orpneumothorax. Heart size is normal. Superior mediastinal contours are within normal limits. No acute osseous abnormality. > Dictated by Agustín Upton DO (Public Transit Specialist) Ludivina Bartholomew MD have personally reviewed and interpreted this examination/study. > Interpreting Provider: Ludivina Hayward MD on 12/19/2023 11:18 AM Cori Hill EXPRESS MANAGER-[facility] DIAGNOSTIC IMAGING ORDERABLES * RESPIRATORY PANEL WITH SARS-COV-2 BY PCR ([facility]) (12/19/2023 9:18 AM CDT) Only the most recent of3 resultswithin the time period is included. Adenovirus PCR Not detected Not detected 12/19/2023 3:31 PM CDT [facility] Coronavirus 229E PCR Not detected Not detected 12/19/2023 3:31 PM CDT [facility] Coronavirus HKU1 PCR Not detected Not detected 12/19/2023 3:31 PM CDT [facility] Coronavirus NL63 PCR Not detected Not detected 12/19/2023 3:31 PM CDT [facility] Coronavirus OC43 PCR Not detected Not detected 12/19/2023 3:31 PM CDT [facility] COVID-19 PCR Not detected Not detected 12/19/2023 3:31 PM CDT [facility] Human Metapneumovirus PCR Not detected Not detected 12/19/2023 3:31 PM CDT [facility] Human Rhinovirus/Enterov irus PCR Not detected Not detected 12/19/2023 3:31 PM CDT [facility] Influenza A PCR Not detected Not detected 12/19/2023 3:31 PM CDT [facility] Influenza B PCR Not detected Not detected 12/19/2023 3:31 PM CDT [facility] Parainfluenza Virus 1 PCR Not detected Not detected 12/19/2023 3:31 PM CDT [facility] Parainfluenza Virus 2 PCR Not detected Not detected 12/19/2023 3:31 PM CDT [facility] Parainfluenza Virus 3 PCR Not detected Not detected 12/19/2023 3:31 PM CDT [facility] Parainfluenza Virus 4 PCR Not detected Not detected 12/19/2023 3:31 PM CDT [facility] Respiratory Syncytial Virus PCR Not detected Not detected 12/19/2023 3:31 PM CDT [facility] Bordetella parapertussis PCR Not detected Not detected 12/19/2023 3:31 PM CDT [facility] Bordetella pertussis PCR Not detected Not detected 12/19/2023 3:31 PM CDT [facility] Chlamydia pneumoniae PCR Not detected Not detected 12/19/2023 3:31 PM CDT [facility] Mycoplasma pneumoniae PCR Not detected Not detected 12/19/2023 3:31 PM CDT [facility] Microbiology SPECIMEN FROM NASOPHARYNGEAL STRUCTURE / Unknown Collection / Unknown 12/19/2023 9:18 AM CDT 12/19/2023 9:27 AM CDT Narrative [facility] - 12/19/2023 3:31 PM CDT This nucleic amplification assay has received FDA authorization via the [employer]. 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 COMPARISON: None. TECHNIQUE: Grayscale and color Doppler ultrasound of the left axillary region was performed utilizing standard protocol. FINDINGS/IMPRESSION: Within the region of interest along the left axilla, there is a small tract to the skin without sonographic evidence of a loculated fluid collection or abscess. The surrounding subcutaneous fat is echogenic and hyperemic, consistent with cellulitis. > Dictated by Aakash Mora MD (Public Transit Specialist) 12/17/2023 11:53 AM I, Julius Tapia MD have personally reviewed and interpreted this examination/study. 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 COMPARISON: None. TECHNIQUE: Grayscale and color Doppler ultrasound of the left axillary region was performed utilizing standard protocol. FINDINGS/IMPRESSION: Within the region of interest along the left axilla, there is a smalltract to the skin without sonographic evidence of a loculated fluid collectionor abscess. The surrounding subcutaneous fat is echogenic and hyperemic, consistent with cellulitis. > Dictated by Aakash Mora MD (Public Transit Specialist) 12/17/2023 11:53 AM I, Julius Tapia MD have personally reviewed and interpreted this examination/study. > Interpreting Provider: Julius Tapia MD on 12/17/2023 4:31 PM Britni Winston PA-C US ORDERABLES * TRANSFUSE PLATELET PHERESIS UNIT(S) (12/15/2023 12:04 PM CDT) Britni Winston PA-C NURSING - BLOOD PROD TRANSFUSION * TRANSFUSE PLATELET PHERESIS UNIT(S) (12/12/2023 12:23 PM CDT) Britni Winston PA-C NURSING - BLOOD PROD TRANSFUSION * TRANSFUSE PLATELET PHERESIS UNIT(S) (12/10/2023 11:50 AM CDT) Esperanza Pemberton EXPRESS MANAGER-DIGITAL MARKETING PROGRAM MANAGER NURSING - BLOOD PROD TRANSFUSION * TRANSFUSE PLATELET PHERESIS UNIT(S) (12/08/2023 12:00 PM CDT) Lupe Chamorro EXPRESS MANAGER-DIGITAL MARKETING PROGRAM MANAGER NURSING - BLOOD PROD TRANSFUSION * TRANSFUSE RED BLOOD CELL LEUKOREDUCED UNIT(S) (12/06/2023 7:21 AM CDT) Seth Cali MD NURSING - BLOOD PROD TRANSFUSION * (ABNORMAL) URINALYSIS W/MICROSCOPIC REFLEX TO CULTURE (12/01/2023 8:52 AM CDT) Only the most recent of2 resultswithin the time period is included. Color UA Yellow Straw, Yellow 12/01/2023 9:14 AM CDT [facility] Clarity UA Slt Cloudy(A) Clear 12/01/2023 9:14 AM CDT [facility] Specific [place] UA 1.023 1.005 - 1.030 12/01/2023 9:14 AM CDT [facility] pH UA 5.0 5.0 - 8.0 pH 12/01/2023 9:14 AM [facility] Protein UA 2+(A) Negative 12/01/2023 9:14 AM [facility] Glucose UA Negative Negative 12/01/2023 9:14 AM [facility] Ketone UA Negative Negative 12/01/2023 9:14 AM [facility] Bilirubin UA Negative Negative 12/01/2023 9:14 AM [facility] Blood UA 1+(A) Negative 12/01/2023 9:14 AM [facility] Nitrite UA Negative Negative 12/01/2023 9:14 AM [facility] Leukocyte Esterase 1+(A) Negative 12/01/2023 9:14 AM [facility] Urobilinogen UA Negative Negative mg/dL 12/01/2023 9:14 AM [facility] RBC UA 3-5 None Seen, 0-2, 3-5 /HPF 12/01/2023 9:14 AM [facility] WBC UA 21-50(A) None Seen, 0-5 /HPF 12/01/2023 9:14 AM [facility] Squamous Epithelial Cells UA 0-2 None Seen, 0-2, 3-5 /HPF 12/01/2023 9:14 AM [facility] Mucus UA 1+ /LPF 12/01/2023 9:14 AM [facility] Urine URINE SPECIMEN OBTAINED BY CLEAN CATCH PROCEDURE / Unknown Collection / Unknown 12/01/2023 8:52 AM CDT 12/01/2023 9:01 AM CDT Narrative [facility] - 12/01/2023 9:14 AM CDT Lab Status, Culture Reflex Indicated. Hussain Carias MD LAB - URINALYSIS ORD ERABLES [address] [address], [facility] [phone] * CULTURE URINE (12/01/2023 8:52 AM CDT) Culture Urine 50,000-100,000 CFU/mL urogenital neris 12/02/2023 11:07 PM CDT [facility] Urine URINE SPECIMEN OBTAINED BY CLEAN CATCH PROCEDURE / Unknown Collection / Unknown 12/01/2023 8:52 AM CDT 12/01/2023 9:14 AM CDT Hsusain Carias MD LAB - MICROBIOLOGY O RDERABLES [facility] [address] [place] [address], [facility] [phone] * TSH (11/28/2023 8:37 AM CDT) TSH 1.840 0.350 - 4.940 uIU/mL 11/28/2023 10:03 AM CDT [facility] Blood BLOOD SPECIMEN / Unknown Venipuncture / Unknown 11/28/2023 8:37 AM CDT 11/28/2023 8:46 AM CDT Britni Winston PA-C LAB - CHEMISTRY JON NAIDU Performing Organization Address [facility]/ZIP Co de Phone Number [address] [phone], [facility] [phone] * T4 FREE (11/28/2023 8:37 AM CDT) T4 Free 0.9 0.7 - 1.5 ng/dL 11/28/2023 10:03 AM CDT [facility] Blood BLOOD SPECIMEN / Unknown Venipuncture / Unknown 11/28/2023 8:37 AM CDT 11/28/2023 8:46 AM CDT Britni Winston PA-C LAB - CHEMISTRY JON NAIDU Performing Organization Address [facility]/ZIP Co de Phone Number [address] [address], [facility] [phone] * CT FACIAL BONES WO CONTRAST (11/24/2023 2:09 PM CDT) Anatomical Region Laterality Modality Head Computed Tomogra phy 11/24/2023 2:18 PM CDT Impressions 11/24/2023 2:23 PM CDT IMPRESSION: 1. Mild mucosal thickening of the left maxillary sinus. No complications. 2. Mild lucency surrounding the root of the right lateral maxillary incisor tooth, which could represent a small periapical abscess. Please correlate with patient's symptoms. 3. A 1.8 cm nodule in the left lobe of thyroid gland. Recommend a thyroid sonogram to further evaluate if not previously performed. 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 Contrast: COMPARISON: No prior study is available for comparison at the time of this dictation. FINDINGS: The orbits including the globes, optic nerves, retrobulbar fat and extraocular muscles appear normal. There is mild mucosal thickening in the left maxillary sinus. The other paranasal sinuses are clear. No bony erosions. The hard palate, mandible, and temporomandibular joints appear normal. The mastoid air cells are clear. No acute facial bone fractures are identified. There is mild lucency surrounding the right lateral maxillary incisor tooth. There is a 1.8 cm nodule in the left lobe of thyroid gland. Recommend a thyroid sonogram to further evaluate if not previously performed. 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 Contrast: COMPARISON: No prior study is available for comparison at the time ofthis dictation. FINDINGS: The orbits including the globes, optic nerves, retrobulbar fat and extraocular muscles appear normal. There is mild mucosal thickening inthe left maxillary sinus. The other paranasal sinuses are clear. No bony erosions. The hard palate, mandible, and temporomandibular joints appear normal. The mastoid air cells are clear. No acute facial bone fracturesare identified. There is mild lucency surrounding the right lateral maxillary incisor tooth. There is a 1.8 cm nodule in the left lobe of thyroid gland. Recommend a thyroid sonogram to further evaluate if not previously performed. IMPRESSION: 1. Mild mucosal thickening of the left maxillary sinus. Nocomplications. 2. Mild lucency surrounding the root of the right lateral maxillaryincisor tooth, which could represent a small periapical abscess. Pleasecorrelate with patient's symptoms. 3. A 1.8 cm nodule in the left lobe of thyroid gland. Recommend athyroid sonogram to further evaluate if not previously performed. > Interpreting Provider: Romie Sanchez MD on 11/24/2023 2:23 PM Britni Winston PA-C CT ORDERABLES * TRANSFUSE RED BLOOD CELL LEUKOREDUCED UNIT(S) (11/24/2023 12:28 PM CDT) Esperanza Pemberton APRN-DIGITAL MARKETING PROGRAM MANAGER NURSING - BLOOD PROD TRANSFUSION * TRANSFUSE PLATELET PHERESIS UNIT(S) (11/24/2023 12:07 PM CDT) Esperanza Pemberton APRN-DIGITAL MARKETING PROGRAM MANAGER NURSING - BLOOD PROD TRANSFUSION * TRANSFUSE PLATELET PHERESIS UNIT(S) (11/21/2023 12:55 PM METAL ORGAN PIPE MAKER) Britni Winston PA-C NURSING - BLOOD PROD TRANSFUSION * TRANSFUSE PLATELET PHERESIS UNIT(S) (11/19/2023 11:38 AM METAL ORGAN PIPE MAKER) Britni D Walker PA-C NURSING - BLOOD PROD TRANSFUSION * TRANSFUSE RED BLOOD CELL LEUKOREDUCED UNIT(S) (11/17/2023 2:10 PM METAL ORGAN PIPE MAKER) Paula Carrillo EXPRESS MANAGER-DIGITAL MARKETING PROGRAM MANAGER NURSING - BLOOD AR OD TRANSFUSION * TRANSFUSE PLATELET PHERESIS UNIT(S) (11/14/2023 3:44 PM METAL ORGAN PIPE MAKER) Britni CHANDLER-Lindsay NURSING - BLOOD PROD TRANSFUSION * TRANSFUSE PLATELET PHERESIS UNIT(S) (11/10/2023 3:56 PM METAL [employer]GAN PIPE MAKER) Paula Carrillo EXPRESS MANAGER-DIGITAL MARKETING PROGRAM MANAGER NURSING - BLOOD AR OD TRANSFUSION * TRANSFUSE RED BLOOD CELL LEUKOREDUCED UNIT(S) (11/06/2023 2:59 PM METAL [employer]GAN PIPE MAKER) Aakash Pierson MD NURSING - BLOOD PROD TRANSFUSION * TRANSFUSE RED BLOOD CELL LEUKOREDUCED UNIT(S) (11/03/2023 12:50 PM METAL ORGAN PIPE MAKER) Cori Hill EXPRESS MANAGER-DIGITAL MARKETING PROGRAM MANAGER NURSING - B LOOD PROD TRANSFUSION * TRANSFUSE RED BLOOD CELL LEUKOREDUCED UNIT(S) (10/20/2023 5:40 PM METAL ORGAN PIPE MAKER) Britni Winston PA-C NURSING - BLOOD PROD TRANSFUSION * TRANSFUSE PLATELET PHERESIS UNIT(S) (10/20/2023 4:04 PM METAL ORGAN PIPE MAKER) Britni CHANDLER-Lindsay NURSING - BLOOD PROD TRANSFUSION * TRANSFUSE RED BLOOD CELL LEUKOREDUCED UNIT(S) (10/14/2023 3:30 PM METAL ORGAN PIPE MAKER) Rossana Jay EXPRESS MANAGER-DIGITAL MARKETING PROGRAM MANAGER NURSING - BLOOD PROD TRANSFUSION * (ABNORMAL) POTASSIUM WHOLE BLD (10/13/2023 9:40 PM METAL ORGAN PIPE MAKER) [facility] Signature Potassium Whole Blood 2.7(L) 3.5 - 5.5 mmol/L 10/13/2023 9:50 PM METAL ORGAN PIPE MAKER [facility] Blood WHOLE BLOOD SPECIMEN / Unknown Venipuncture / Unknown 10/13/2023 9:40 PM METAL [employer]GAN PIPE MAKER 10/13/2023 9:44 PM METAL ORGAN PIPE MAKER Frederick Fam MD LAB - CHEMISTRY JON NAIDU [facility] [address] [place] [address], [facility] [phone] * TRANSFUSE PLATELET PHERESIS UNIT(S) (10/13/2023 8:40 PM METAL ORGAN PIPE MAKER) Laureen Gupta MD NURSING - BLOOD PROD TRANSFUSION * DOLL AUTO VISUAL FIELD EXTENDED (10/13/2023 3:21 PM METAL ORGAN PIPE MAKER) Anatomical Region Laterality Modality Head External-Camera Photography Narrative 10/28/2023 7:23 AM METAL ORGAN PIPE MAKER Images from the original result were not included. Review of HVF: ??date: pattern deviation, reliability. ?(foveal threshold), (VFI), (Mean Deviation). ??10/13/2023: ??scattered nonspecific defects but overall full gonzales OU improved from prior, good reliability OU ? (37 dB OD, 35 dB OS), (96% OD, 97% OS), (-2.9 dB OD, -3.8 dB OS). Nilam Mayers MD OPHTHALMOLOGY SCHE D ORD W PACS * OPTIC NERVE ANALYSIS OCT (10/13/2023 3:21 PM METAL ORGAN PIPE MAKER) Anatomical Region Laterality Modality Head External-Camera Photography Narrative 10/28/2023 7:23 AM METAL [employer]GAN PIPE MAKER Images from the original result were not included. OCT: average RNFL of ONH: 153 OD, 134 OS improved from prior of 175 OD 165 OS Nilam Mayers MD OPHTHALMOLOGY SCHE D ORD W PACS * TRANSFUSE RED BLOOD CELL LEUKOREDUCED UNIT(S) (10/09/2023 4:16 PM METAL ORGAN PIPE MAKER) French Novoa MD NURSING - BLOOD PROD TRANSFUSION * (ABNORMAL) BLOOD GASES ROMERO + COOX PANEL (10/09/2023 6:04 AM METAL ORGAN PIPE MAKER) pH Venous 7.36 7.32 - 7.42 pH 10/09/2023 6:18 AM METAL ORGAN PIPE MAKER [facility] pO2 Venous 74(H) 35 - 40 mmHg 10/09/2023 6:18 AM [facility] pCO2 Venous 26(L) 40 - 50 mmHg 10/09/2023 6:18 AM [facility] HCO3 Venous 14.7(L) 20 - 30 mmol/L 10/09/2023 6:18 AM [facility] Base Excess Venous -9.7(L) -2.0 - 2.0 mmol/L 10/09/2023 6:18 AM [facility] Oxyhemoglobin Venous 95.3 % 09/16 6:18 AM [facility] Deoxyhemoglobin (HHB) Venous % 2.1 % 10/09/2023 6:18 AM [facility] Methemoglobin <0.8 0.0 - 2.0 % 10/09/2023 6:18 AM [facility] Carboxyhemoglobin 2.2(H) 0.0 - 2.0 % 2023 6:18 AM [facility] O2 Content Venous 10.0 Interpret within clinical context ml/dL 10/09/2023 6:18 AM [facility] Hemoglobin by COOX 7.4(L) 12.0 - 15.6 g/dL 10/09/2023 6:18 AM [facility] O2 Saturation Venous 98 >=70 % 09/16 6:18 AM [facility] FI O2 Mixed Venous 21.0 % 2023 6:18 AM [facility] Blood BLOOD SPECIMEN / Unknown Venipuncture / Unknown 10/09/2023 6:04 AM [facility] 10/09/2023 6:15 AM [facility] - 10/09/2023 6:18 AM [facility] Carboxyhemoglobin Normal Concentration: Non-smokers: 0-2%; Smokers: 0-9%; Toxic: >20% French Novoa MD LAB - BLOOD GASES OR DERABLES [facility] [address] [place] [address], [facility] [phone] * FIBRINOGEN ACTIVITY (10/08/2023 9:52 PM METAL ORGAN PIPE MAKER) Only the most recent of19 resultswithin the time period is included. Fibrinogen Clauss 211 200 - 400 mg/dL 10/08/2023 10:15 PM METAL ORGAN PIPE MAKER [facility] Blood BLOOD SPECIMEN / Unknown Venipuncture / Unknown 10/08/2023 9:52 PM METAL ORGAN PIPE MAKER 10/08/2023 9:54 PM METAL ORGAN PIPE MAKER Umair Tan MD LAB - COAGULATION OR DERABLES Performing Organization Address City/[facility] Co de Phone Number [facility] [address] [place] [address], [facility] [phone] * FL LUMBAR PUNCT FOR CHEMO INJ (10/06/2023 3:30 PM METAL ORGAN PIPE MAKER) Only the most recent of2 resultswithin the time period is included. Anatomical Region Laterality Modality Spine Radiographic Ammy ging 10/06/2023 3:19 PM METAL ORGAN PIPE MAKER Impressions 10/06/2023 4:30 PM METAL ORGAN PIPE MAKER IMPRESSION: 1. Successful lumbar puncture under fluoroscopic guidance at level L3-4. 2. Successful injection of intrathecal chemotherapeutic agent. 3. Successful measurement of opening pressure: 31 cm of water in the prone position. Report dictated by Sivakumar Garrido DO (Public Transit Specialist). I, Sara Huitron MD have personally reviewed and interpreted this examination/study. 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 1. Diagnostic lumbar puncture (LP) under fluoroscopic guidance 2. 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 TECHNIQUE: ??The risks and benefits of the lumbar puncture including, but not limited to, infection, bleeding, seizure, epidural hematoma, post spinal headache, cerebrospinal fluid (CSF) leak requiring blood patch procedure, nausea, vomiting, irritation or damage to nerves causing pain or permanent injury ??were discussed with the patient. Alternatives were discussed and the patient was given the opportunity to ask questions. The patient acknowledged understanding, gave verbal and written consent, and wished to proceed. Attending physician: Dr. Huitron was present for the aguirre portions of the procedure. The L3-4 level was localized with fluoroscopy. The skin overlying this level was then sterilely prepped, draped, and infiltrated with 1% lidocaine for local anesthesia. Under intermittent fluoroscopic guidance, a 20-gauge 5 inch spinal needle was inserted into the thecal sac at this level. Clear CSF was identified. A total of 16 ml of CSF was removed and placed into 4 specimen tubes. The date, patient name and dose of intrathecal chemotherapy agent was confirmed prior to injection. The patient tolerated the procedure well. The patient was then transferred to the nursing area for further observation and one hour of bedrest. OPENING PRESSURE: 31 cm of water in the prone position. 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 Diagnostic lumbar puncture (LP) under fluoroscopic guidance 2. Intrathecal injection of chemotherapeutic agent HISTORY: Acute myeloid leukemia and evaluation for idiopathicintracranial hypertension. TECHNIQUE: The risks and benefits of the lumbar puncture including, but not limited to, infection, bleeding, seizure, epidural hematoma, post spinal headache, cerebrospinal fluid (CSF) leak requiring blood patch procedure, nausea, vomiting, irritation or damage to nerves causing painor permanent injury were discussed with the patient. Alternatives were discussed and the patient was given the opportunity to ask questions.The patient acknowledged understanding, gave verbal and written consent, and wished to proceed. Attending physician: Dr. Huitron was present for the aguirre portions of the procedure. The L3-4 level was localized with fluoroscopy. The skin overlying this level was then sterilely prepped, draped, and infiltrated with 1%lidocaine for local anesthesia. Under intermittent fluoroscopic guidance, [id number] 5 inch spinal needle was inserted into the thecal sac at this level. Clear CSF was identified. A total of 16 ml of CSF was removed and placed into 4 specimen tubes. The date, patient name and dose of intrathecal chemotherapy agent was confirmed prior to injection. The patient tolerated the procedure well. The patient was thentransferred to the nursing area for further observation and one hour of bedrest. OPENING PRESSURE: 31 cm of water in the prone position. CHEMOTHERAPEUTIC AGENT: 12 mg Methotrexate FLUOROSCOPY TIME:6.1 seconds IMPRESSION: 1. Successful lumbar puncture under fluoroscopic guidance at level L3-4. 2. Successful injection of intrathecal chemotherapeutic agent. 3. Successful measurement of opening pressure: 31 cm of water in theprone position. Report dictated by Sivakumar Garrido DO (Public Transit Specialist). I, Sara Huitron MD have personally reviewed and interpreted this examination/study. > Interpreting Provider: Sara Huitron MD on 10/06/2023 4:30 PM Umair Tan MD FLUOROSCOPY ORDERABL ES * FLOW CYTOMETRY BODY FLUID (10/06/2023 3:24 PM METAL ORGAN PIPE MAKER) Only the most recent of2 resultswithin the time period is included. Case Report Flow Cytometry ?Case: [id number] ? Authorizing Provider: ??Umair Tan MD ?Collected: ? 10/06/2023 03:24 PM ? Ordering Location: ? [facility] ACUTE ? Received: ?10/07/2023 12:52 PM ? Pathologist: ? Meagan Lunsford MD ? Specimen: ?CSF Tube 3 ? 10/07/2023 2:57 PM METAL ORGAN PIPE MAKER [facility] Final Diagnosis Cerebrospinal fluid, flow cytometry: - Too few hematopoietic cells for flow cytometry 10/07/2023 2:57 PM [facility] Flow Cytometry Interpretation A cytospin prepared from the flow cytometry specimen has been reviewed for quality control industrial engineer purposes. 10/07/2023 2:57 PM [facility] Flow Cytometry Results Too few hematopoietic cells for flow cytometric analysis. 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 *The established laboratory minimum viability is 70%. Values below the minimum may result in the failure to find an abnormal population of cells. This test was developed and its performance characteristics determined by the Flow Cytometry Laboratory. It has not been cleared by the [place] Food and Drug Administration (FDA). The FDA has determined that such clearance or approval is not necessary. This test is used for clinical purposes. It should not be regarded as investigational or for research. This laboratory is regulated under the Clinical Laboratory Improvement Amendments of 1998 (CLIA) as a qualified to perform high complexity clinical testing. 10/07/2023 2:57 PM METAL ORGAN PIPE MAKER [facility] Embedded Images 2:57 PM METAL ORGAN PIPE MAKER [facility] Fluid CEREBROSPINAL FLUID SPECIMEN / Unknown Collection / Unknown 10/06/2023 3:24 PM METAL ORGAN PIPE MAKER 10/07/2023 12:52 PM METAL ORGAN PIPE MAKER Umair Tan MD LAB - PATHOLOGY/CYTO LOGY ORDERABLES [facility] [address] [place] [address], [facility] [phone] * HOLD SPECIMEN CSF (10/06/2023 3:24 PM METAL ORGAN PIPE MAKER) Specimen Hold Put in CSF Hold Specimen Rack in Processing Ref 10/06/2023 4:28 PM METAL ORGAN PIPE MAKER [facility] Cerebral spinal fluid CEREBROSPINAL FLUID SPECIMEN / Unknown Collection / Unknown 10/06/2023 3:24 PM METAL ORGAN PIPE MAKER 10/06/2023 4:27 PM METAL ORGAN PIPE MAKER Umair Tan MD LAB - BODY FLUID ORD ERABLES [facility] [address] [place] [address], [facility] [phone] * MENINGITIS/ENCEPHALITIS PANEL CSF (10/06/2023 3:24 PM METAL ORGAN PIPE MAKER) Escherichia coli K1 Not detected Not detected 10/06/2023 9:03 PM METAL ORGAN PIPE MAKER [facility] Haemophilus influenzae Not detected Not detected 10/06/2023 9:03 PM METAL ORGAN PIPE MAKER [facility] Listeria monocytogenes Not detected Not detected 10/06/2023 9:03 PM METAL ORGAN PIPE MAKER [facility] Neisseria meningitis Not detected Not detected 10/06/2023 9:03 PM METAL ORGAN PIPE MAKER [facility] Streptococcus agalactiae (Group B) Not detected Not detected 10/06/2023 9:03 PM METAL ORGAN PIPE MAKER [facility] Streptococcus pneumoniae Not detected Not detected 10/06/2023 9:03 PM METAL ORGAN PIPE MAKER [facility] Cytomegalovirus Not detected Not detected 10/06/2023 9:03 PM METAL ORGAN PIPE MAKER [facility] Enterovirus Not detected Not detected 10/06/2023 9:03 PM METAL ORGAN PIPE MAKER [facility] Herpes simplex Virus 1 Not detected Not detected 10/06/2023 9:03 PM METAL ORGAN PIPE MAKER [facility] Herpes simplex Virus 2 Not detected Not detected 10/06/2023 9:03 PM METAL ORGAN PIPE MAKER [facility] Human Herpesvirus 6 Not detected Not detected 10/06/2023 9:03 PM METAL ORGAN PIPE MAKER [facility] Human Parechovirus Not detected Not detected 10/06/2023 9:03 PM METAL ORGAN PIPE MAKER [facility] Varicella zoster Virus Not detected Not detected 10/06/2023 9:03 PM METAL ORGAN PIPE MAKER [facility] Cryptococcus neoformans/gattii Not detected Not detected 10/06/2023 9:03 PM METAL ORGAN PIPE MAKER [facility] Microbiology CEREBROSPINAL FLUID SPECIMEN / Unknown Collection / Unknown 10/06/2023 3:24 PM METAL ORGAN PIPE MAKER 10/06/2023 4:48 PM METAL ORGAN PIPE MAKER Narrative [facility] - 10/06/2023 9:03 PM METAL ORGAN PIPE MAKER Meningitis/Encephalitis PCR CSF Panel performed by [employer] FilmArray multiplex PCR. A negative FilmArray ME Panel result does not exclude the possibility of SKIN FORMER infection and should not be used as the sole basis for diagnosis, treatment, or other management decisions. ??The FilmArray ME Panel is intended to be used in conjunction with the standard of care CSF Gram stain and culture for organism recovery and is not a substitute for these tests. ??Test results should be interpreted in the context of patient presentation and other laboratory information. Umair Tan MD LAB - MICROBIOLOGY O RDERABLES [facility] [address] [place] [address], [facility] [phone] * CULTURE CSF+GRAM STAIN (10/06/2023 3:24 PM METAL ORGAN PIPE MAKER) Culture No growth DAVID 10/13/2023 6:22 AM [facility] Gram Stain No polymorphonuclear cells 10/13/2023 6:22 AM METAL ORGAN PIPE MAKER [facility] Gram Stain No organisms seen 024 6:22 AM [facility] Cerebral spinal fluid CEREBROSPINAL FLUID SPECIMEN / Unknown Collection / Unknown 10/06/2023 3:24 PM METAL ORGAN PIPE MAKER 10/06/2023 4:18 PM METAL [employer]GAN PIPE MAKER Umair Tan MD LAB - MICROBIOLOGY O RDERABLES [facility] [address] [place] [address], [facility] [phone] * (ABNORMAL) CELL COUNT W DIFFERENTIAL CSF (10/06/2023 3:24 PM METAL ORGAN PIPE MAKER) Tube Number [id number] 10/06/2023 4:35 PM METAL [employer]GAN PIPE MAKER [facility] Xanthochromia ABSENT ABSENT 10/06/2023 4:35 PM METAL [employer]GAN PIPE MAKER [facility] CSF Appearance CLEAR 10/06/2023 4:35 PM METAL ORGAN PIPE MAKER [facility] CSF Color COLORLESS 10/06/2023 4:35 PM METAL [employer]GAN PIPE MAKER [facility] Total Nucleated Cells CSF 1 <=5 x10E6/L 10/06/2023 4:35 PM [facility] RBC Count CSF 6(H) <1 x10E6/L 10/06/2023 4:35 PM METAL [employer]GAN PIPE MAKER [facility] Cerebral spinal fluid CEREBROSPINAL FLUID SPECIMEN / Unknown Collection / Unknown 10/06/2023 3:24 PM METAL ORGAN PIPE MAKER 10/06/2023 4:16 PM METAL ORGAN PIPE MAKER Umair Tan MD LAB - BODY FLUID ORD ERABLES Performing Organization Address [facility]/ZIP Co de Phone Number [address] [address], [facility] [phone] * PROTEIN CSF (10/06/2023 3:24 PM METAL ORGAN PIPE MAKER) [facility] Protein CSF 31 15 - 45 mg/dL 10/06/2023 4:52 PM METAL [employer]GAN PIPE MAKER [facility] Cerebral spinal fluid CEREBROSPINAL FLUID SPECIMEN / Unknown Collection / Unknown 10/06/2023 3:24 PM METAL ORGAN PIPE MAKER 10/06/2023 4:18 PM METAL ORGAN PIPE MAKER Umair Tan MD LAB - BODY FLUID ORD ERABLES [address] [address], [place] [phone] * GLUCOSE CSF (10/06/2023 3:24 PM METAL ORGAN PIPE MAKER) Glucose CSF 58 40 - 70 mg/dL 10/06/2023 4:52 PM METAL ORGAN PIPE MAKER [facility] Cerebral spinal fluid CEREBROSPINAL FLUID SPECIMEN / Unknown Collection / Unknown 10/06/2023 3:24 PM METAL ORGAN PIPE MAKER 10/06/2023 4:18 PM METAL ORGAN PIPE MAKER Umair Tan MD LAB - BODY FLUID ORD ERABLES Performing Organization Address [facility]/State/ZIP Co de Phone Number [facility] [address] [place] [address], [facility] [phone] * CYTOLOGY NON-PUBLISHING AGENT PANEL (STL) (10/06/2023 3:23 PM METAL [employer]GAN PIPE MAKER) Only the most recent of2 resultswithin the time period is included. Pathologist [facility] Case Report Medical Cytology Report ? Case: [id number] ? Authorizing Provider: ??Umair Tan MD ?Collected: ? 10/06/2023 03:23 PM ? Ordering Location: ? [facility] 7N ACUTE ? Received: ?10/07/2023 12:56 PM ? Pathologist: ? Ru Kramer MD ? Specimen: ?CSF Tube 4 ? 10/08/2023 3:43 PM [facility] Specimen Adequacy Adequate cellularity for evaluation. 10/08/2023 3:43 PM [facility] Final Diagnosis Cerebrospinal fluid, cytology: - Rare monocytes - No malignancy identified (No blasts) 10/08/2023 3:43 PM [facility] Clinical History The patient is a 38 year-old female with history of AML, diagnosed in August 2023, ~day 22 induction 7 + 3. 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 10/08/2023 3:43 PM [facility] Gross Description 1 diff-quik stained cytospin slide from 1cc clear fluid 10/08/2023 3:43 PM [facility] Microscopic Description Clean specimen. Microscopic examination substantiates the final diagnosis. 10/08/2023 3:43 PM [facility] Pathologist Location at [facility] 10/08/2023 3:43 PM [facility] Disclaimer The performance characteristics of all immunohistochemical and indirect immunofluorescence stains (if any) cited in this report were determined by the Histopathology Laboratory of [facility]. Some of these tests rely on the use of analyte-specific reagents and are subject to specific labeling requirements by the [place] Food and Drug Administration. Such tests were developed by the Histology Laboratory of [facility] and have not been cleared or approved by the FDA. The FDA has determined that such clearance and approval is not necessary. These tests are used for clinical purposes and should not be regarded as investigational or for research. This laboratory is certified under the Clinical Laboratory Improvement Amendments (CLIA) as qualified to perform high complexity clinical laboratory testing. This case has been personally reviewed and interpreted by the attending (teaching) pathologist. 10/08/2023 3:43 PM [facility] Embedded Images 10/08/2023 3:43 PM [facility] Pathology/Cytolo gy CEREBROSPINAL FLUID SPECIMEN / Unknown Collection / Unknown 10/06/2023 3:23 PM [employer] 10/07/2023 12:56 PM [employer] Umair Tan MD LAB - PATHOLOGY/CYTO LOGY ORDERABLES [facility] [address] [facility] [place] [address], [facility] [phone] * MRI ANGIO BRAIN VENOUS WWO CONT (10/03/2023 12:31 AM [employer]) Anatomical Region Laterality Modality Head Magnetic Resonan ce 10/03/2023 9:51 AM [employer] Impressions 10/03/2023 10:24 AM [employer] IMPRESSION: 1.Moderate or moderate to severe stenosis of the junction of the straight sinus and the right transverse sinus, (series 1098, image 12). At least moderate or moderate to severe stenosis of the distal end of the left transverse sinus, (series 1091, image 15 and series 1098, image 12). Moderate or moderate to severe stenosis of the distal end of the right transverse sinus with appearance of focal fenestration versus filling defect, possibly arachnoid granulation, (series 1098, image 18 for example). 2.Findings are nonspecific however compatible with the suggested diagnosis of idiopathic intracranial hypertension, AKA pseudotumor cerebri. Clinical correlation is recommended. 3.No evidence of dural sinus thrombosis. > Interpreting Provider: Augustine Davison MD on 10/03/2023 10:24 AM Narrative 10/03/2023 10:24 AM [employer] PROCEDURE: ??MRI ANGIO BRAIN VENOUS WWO CONT, DATE/TIME OF EXAM: ??10/03/2023 12:36 AM, LOCATION ??[facility] INDICATION: R90.89: Abnormal imaging of central nervous system ADDITIONAL CLINICAL INFORMATION: Ordering Provider Reason For Exam: ??rule out caverous sinus thrombosis Technologist Note: ??Does the patient have a pacemaker or defibrillator?->No Does the patient have metal implants or stents?->No Additional: ??None. CONTRAST: ??GADOBUTROL 1 MMOL/ML IV SSM SO:10 mL EXAMINATION: Magnetic resonance venography (MRV) of the head without and with contrast TECHNIQUE: MRV of the head was performed without contrast utilizing phase contrast technique and utilizing contrast enhanced time-resolved technique after the administration of 10 mL intravenous GADAVIST contrast. COMPARISON: MRI of the brain from 09/29/2023. CT angiography of the head the neck from 10/01/2023. FINDINGS: Moderate or moderate to severe stenosis of the junction of the straight sinus and the right transverse sinus, (series 1098, image 12). At least moderate or moderate to severe stenosis of the distal end of the left transverse sinus, (series 1091, image 15 and series 1098, image 12). Moderate or moderate to severe stenosis of the distal end of the right transverse sinus with appearance of focal fenestration versus filling defect, possibly arachnoid granulation, (series 1098, image 18 for example). The dural sinuses appear otherwise normal without evidence of thrombosis. The internal cerebral veins, veins of Indu, and visible portions of the internal jugular veins appear normal without evidence of thrombosis. Procedure Note Augustine Davison MD - 10/03/2023 PROCEDURE: MRI ANGIO BRAIN VENOUS WWO CONT, DATE/TIME OF EXAM:10/03/2023 12:36 AM, LOCATION [facility] INDICATION: R90.89: Abnormal imaging of central nervous system ADDITIONAL CLINICAL INFORMATION: Ordering Provider Reason For Exam: rule out caverous sinus thrombosis Technologist Note: Does the patient have a pacemaker ordefibrillator?->No Does the patient have metal implants or stents?->No Additional: None. CONTRAST: GADOBUTROL 1 MMOL/ML IV SSM SO:10 mL EXAMINATION: Magnetic resonance venography (MRV) of the head without and with contrast TECHNIQUE: MRV of the head was performed without contrast utilizingphase contrast technique and utilizing contrast enhanced time-resolvedtechnique after the administration of 10 mL intravenous GADAVIST contrast. COMPARISON: MRI of the brain from 09/29/2023. CT angiography of the headthe neck from 10/01/2023. FINDINGS: Moderate or moderate to severe stenosis of the junction of the straight sinus and the right transverse sinus, (series 1098, image 12). At least moderate or moderate to severe stenosis of the distal end of the left transverse sinus, (series 1091, image 15 and series 1098, image 12). Moderate or moderate to severe stenosis of the distal end of the right transverse sinus with appearance of focal fenestration versus filling defect, possibly arachnoid granulation, (series 1098, image 18 for example). The dural sinuses appear otherwise normal without evidence ofthrombosis. The internal cerebral veins, veins of Indu, and visible portions of the internal jugular veins appear normal without evidence of thrombosis. IMPRESSION: 1.Moderate or moderate to severe stenosis of the junction of thestraight sinus and the right transverse sinus, (series 1098, image 12). At least moderate or moderate to severe stenosis of the distal end of the left transverse sinus, (series 1091, image 15 and series 1098, image 12). Moderate or moderate to severe stenosis of the distal end of the right transverse sinus with appearance of focal fenestration versus filling defect, possibly arachnoid granulation, (series 1098, image 18 for example). 2.Findings are nonspecific however compatible with the suggesteddiagnosis of idiopathic intracranial hypertension, AKA pseudotumor cerebri.Clinical correlation is recommended. 3.No evidence of dural sinus thrombosis. > Interpreting Provider: Augustine Davison MD on 10/03/2023 10:24 AM Umair aTn MD MR ORDERABLES * XR ABD OBSTRUCTION SERIES 2VW (10/01/2023 7:39 PM [employer]) Anatomical Region Laterality Modality Abdomen Radiographic Ammy ging 10/02/2023 8:25 AM [employer] Impressions 10/02/2023 9:26 AM [employer] IMPRESSION: Paucity of bowel gas. No pneumoperitoneum. Report dictated by Haleigh Mosquera MD (residential remodeling subcontractor). IFabien DO have personally reviewed and interpreted this examination/study. > Interpreting Provider: Fabien Yin DO on 10/02/2023 9:26 AM Narrative 10/02/2023 9:26 AM [employer] PROCEDURE: ??XR ABD OBSTRUCTION SERIES 2VW DATE/TIME OF EXAM: ??10/01/2023 7:39 PM CLINICAL INFORMATION: None relevant/not provided if blank. Indication: R11.2: Nausea and vomiting, unspecified vomiting type COMPARISON: Abdominal radiograph dated 09/15/2023. FINDINGS: Supine and upright views of the abdomen demonstrate paucity of bowel gas. No pneumoperitoneum. No pathologic calcifications are seen within the abdomen or pelvis. ??The visible lower chest has diffuse interstitial prominence which can represent pulmonary vascular congestion and interstitial pneumonia. Procedure Note Fabien Yin DO - 10/02/2023 PROCEDURE: XR ABD OBSTRUCTION SERIES 2VW DATE/TIME OF EXAM: 10/01/2023 7:39 PM CLINICAL INFORMATION: None relevant/not provided if blank. Indication: R11.2: Nausea and vomiting, unspecified vomiting type COMPARISON: Abdominal radiograph dated 09/15/2023. FINDINGS: Supine and upright views of the abdomen demonstrate paucity of bowelgas. No pneumoperitoneum. No pathologic calcifications are seen within the abdomen or pelvis. The visible lower chest has diffuse interstitial prominence which can represent pulmonary vascular congestion and interstitial pneumonia. IMPRESSION: Paucity of bowel gas. No pneumoperitoneum. Report dictated by Haleigh Mosquera MD (residential remodeling subcontractor). I, Fabien Yin DO have personally reviewed and interpreted this examination/study. > Interpreting Provider: Fabien Yin DO on 10/02/2023 9:26 AM Kevin Houston MD DIAGNOSTIC IMAGING O RDERABLES * FISH AML PANEL BLOOD OR BM RFLX PML/BENY (10/01/2023 1:50 PM [employer]) Only the most recent of2 resultswithin the time period is included. [facility] FISH AML Panel See Note Normal 10/08/2023 5:48 PM METAL [employer] PIPE [employer] ([facility]) Comment: Test Performed: Acute Myeloid Leukemia Panel by FISH (FISHAML) Specimen Type: Bone Marrow Indication for Testing: Acute Leukemia of Unspecified Cell Type RESULT Normal FISH Result inv(3) or t(3;3) RPN1::MECOM Fusion: ??not detected Deletion 5q: ??not detected Monosomy 7: ??not detected Deletion 7q: ??not detected t(8;21) RUNX1::ZTJW3M8 Fusion: ??not detected 11p15 (NUP98) Rearrangement: ??not detected 11q23 (KMT2A) Rearrangement: ??not detected inv(16) or t(16;16) CBFB::MYH11 Fusion: ??not detected INTERPRETATION There was no evidence of RPN1::MECOM fusion due to 3q21/3q26.2 inversion or translocation, deletion 5q31, monosomy 7, deletion 7q31, RUNX1::WYUA0P7 fusion due to translocation (8;21)(q21.3;q22), 11p15 (NUP98) rearrangement, 11q23 KMT2A (MLL) rearrangement, or CBFB::MYH11 fusion due to either 16p13.1/16q22 inversion or translocation. This analysis was performed with the AML panel probes RPN1/MECOM, D5S23/EGR1, D7Z1/N9G795, RUNX1/YXYU8O0 ([employer]), NUP98 and CBFB-MYH11 ([employer]), and MLL (KMT2A) ([employer]). A total of 200 cells were scored for each probe. Cytogenomic Nomenclature (ISCN): nuc jung(RPN1,MECOM,D5S23,EGR1,D7Z1,C9H505,GDZH9I3,NUP98,KMT2A,MYH11,CBF B,RUNX1)x2[200' This result has been reviewed and approved by Kimberly Alaniz, Ph.D., [facility] INTERPRETIVE INFORMATION: AML Panel by FISH This test was developed and its performance characteristics determined by [facility]. It has not been cleared or approved by the US Food and Drug Administration. This test was performed in a CLIA certified laboratory and is intended for clinical purposes. EER AML Panel by FISH See Note 10/08/2023 5:48 PM MET[employer] ([facility]) Comment: Authorized individuals can access the [employer] Enhanced Report using the following link: [email or web address] Performed By: [facility] [address] [place] [id number] Transition Program Manager: Ebenezer Shipman MD, PhD CLIA Number: [id number] Other BONE MARROW SPECIMEN / Unknown Collection / Unknown 10/01/2023 1:50 PM [employer] 10/01/2023 2:11 PM [employer]KER Umair Tan MD LAB - PATHOLOGY/CYTO LOGY ORDERABLES Performing Organization Address [facility]/State/ZIP Co de Phone Number [facility] ([facility]) [address] [place] [address], [facility] * FLOW CYTOMETRY BONE MARROW (10/01/2023 1:50 PM METAL [employer] P[employer]KER) Only the most recent of4 resultswithin the time period is included. Case Report Flow Cytometry ?Case: [id number] ? Authorizing Provider: ??Umair Tan MD ?Collected: ? 10/01/2023 01:50 PM ? Ordering Location: ? [facility] 7N ACUTE ? Received: ?10/01/2023 02:11 PM ? Pathologist: ? Beverly Ferro MD ? Specimen: ?Bone Marrow ? 10/08/2023 12:19 PM [employer] PIPE [employer] [facility] Addendum 1 Minimal residual disease flow cytometry performed at [facility] is reportedly negative for an abnormal myeloid progenitor population. 10/08/2023 12:19 PM [facility] Addendum electronically signed by Meagan Lunsford MD on 10/08/2023 at 12:18 PM Final Diagnosis Bone marrow, flow cytometric immunophenotyping: - No immunophenotypic evidence of residual acute myeloid leukemia (see comment) - No evidence of monoclonal B-cells or plasma cell neoplasm - MRD testing pending; result reported as an addendum Comment: Myeloblasts are identified by flow cytometry (2.1% of total cells). However, these blasts are CD34+/CD7- which is dissimilar to the phenotype of the patient's initially diagnosed AML (which were CD34-/CD7+) and are favored to represent benign/regenerativ e myeloblasts. 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 Please correlate with histologic review of the bone marrow ([id number]). 10/08/2023 12:19 PM [facility] Flow Cytometry Results Differential Result Comment Flow Cell Count /uL 4,600 Total Viability % 91.0 Lymphocytes % 29 Dim CD45 Region % 4 Monocytes % 38 Granulocytes % 29 10/08/2023 12:19 PM [facility] Reason for test 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 ([facility]) 10/08/2023 12:19 PM [facility] Client Specimen ID # [id number] 10/08/2023 12:19 PM [facility] Number of markers 19 were performed. A-2 Flow CD10 A-3 Flow CD13 A-5 Flow CD20 A-11 Flow CD2 A-13 Flow CD14 A-16 Flow CD117 A-17 Flow CD11b A-18 Flow CD11c A-1 Flow CD5 A-4 Flow CD19 A-6 Flow CD33 A-7 Flow CD34 A-8 Flow CD45 A-12 Flow CD7 A-14 Flow CD56 A-15 Flow CD64 A-9 Muddy+CD19+ A-10 Lambda+CD19+ A-19 Flow HLA-DR 10/08/2023 12:19 PM [facility] Pathologist Location at [facility] 10/08/2023 12:19 PM [facility] Disclaimer Test performed at [facility], [address] [place] [address], [id number]. *The established laboratory minimum viability is 70%. Values below the minimum may result in the failure to find an abnormal population of cells. This test was developed and its performance characteristics determined by the Flow Cytometry Laboratory. It has not been cleared by the [place] Food and Drug Administration (FDA). The FDA has determined that such clearance or approval is not necessary. This test is used for clinical purposes. It should not be regarded as investigational or for research. This laboratory is regulated under the Clinical Laboratory Improvement Amendments of 1998 (CLIA) as a qualified to perform high complexity clinical testing. 10/08/2023 12:19 PM [facility] Embedded Images 12:19 PM [facility] Pathology/Cytolo gy BONE MARROW SPECIMEN / Unknown Collection / Unknown 10/01/2023 1:50 PM [employer]KER 10/01/2023 2:11 PM [employer] Umair Tan MD LAB - PATHOLOGY/CYTO LOGY ORDERABLES [facility] [address] [place] [address]. [place] [address], [facility] [phone] * BONE MARROW BIOPSY (STL) (10/01/2023 1:50 PM METAL [employer]IPE [employer]KER) Only the most recent of4 resultswithin the time period is included. Case Report Bone Marrow Patholog y Report ?Case: [id number] ? Authorizing Provider: ??Umair Tan MD ?Collected: ? 10/01/2023 01:50 PM ? Ordering Location: ? [facility] 7N ACUTE ? Received: ?10/01/2023 02:11 PM ? Pathologist: ? Beverly Ferro MD ? Specimens: ?? A) - Bone Marrow Clot ? B) - Bone Marrow Core ? C) - Bone Marrow Aspirate ? D) - Blood Peripheral ? 10/03/2023 7:25 PM [employer] [facility] Final Diagnosis Bone marrow, iliac crest, core biopsy and aspirate: -No morphologic evidence of residual acute myeloid leukemia in a normocellular marrow (70% cellular) 10/03/2023 7:25 PM [facility] Comment Please correlate wit h MRD testing on the flow cytometry specimen which is pending. 10/03/2023 7:25 PM [facility] Peripheral Smear Description Manual Differential Count (100 cells): 28% neutrophils, 1% myelocytes, 44% lymphocytes, 26% monocytes, 0% eosinophils, and 0% basophils. 1.2 nRBCs / 100 WBCs. Leukocyte number: normal. Granulocyte morphology: normal. Lymphocyte morphology: normal. Erythrocyte number: decreased. Erythrocyte morphology: normocytic. Anisopoikilocytosis: mild. Polychromasia: mild. Platelet number: decreased. Platelet morphology: normal. 10/03/2023 7:25 PM [facility] Bone Marrow Aspirate Differential count not performed as the aspirate smears are markedly hemodilute. On scanning, rare hematopoiesis elements are identified. Increased blasts are not appreciated. Specimen quality: markedly suboptimal. Spicules: absent. Trilineage Hematopoiesis: present. Myeloid:Erythroid ratio: cannot be adequately evaluated due to lack of spicules Myeloid Maturation: cannot be adequately evaluated due to lack of spicules Erythroid Maturation: cannot be adequately evaluated due to lack of spicules Megakaryocyte morphology: cannot be adequately evaluated due to lack of spicules Storage iron (by special stain): An iron stain of the bone marrow aspirate smear was attempted but noncontributory due to the lack of cellular spicules. 10/03/2023 7:25 PM [facility] Bone Marrow Core Biopsy and Clot Section Description Specimen quality: adequate with 0.5 cm of evaluable marrow. Cellularity: 70 % Trilineage Hematopoiesis: present. Myeloid to Erythroid ratio: increased. Myeloid maturation and localization: normal. Erythroid maturation and localization: normal. Megakaryocyte number: normal. Megakaryocyte distribution: normal. Lymphoid aggregates: absent. Bone trabeculae: normal. Blood vessels: normal. Plasma cells: normal. Clot section marrow particles: absent. Clot section morphology: peripheral blood only. 10/03/2023 7:25 PM [facility] Flow Cytometry Summary Flow cytometry is negative for evidence of residual acute myeloid leukemia ([id number]). 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 Received fresh, specimen A, clot is less than 1 cc of bright red fluid-like blood. The specimen is placed in a biopsy bag and entirely submitted in cassette A1. Received in formalin, specimen B, core a hemorrhagic core biopsy of red-toney bone 0.8 x 0.3 cm.. The specimen is entirely submitted in cassette B1 following a 1 hour decalicifcation in [employer]. GW 10/03/2023 7:25 PM [facility] Microscopic Description Immunohistochemistry stains with appropriate controls are performed on the core biopsy in an attempt to evaluate for myeloblasts. The patient's blasts previously expressed CD7 and CD117 and those antigens are employed to evaluate for abnormal collections of immature cells. These are not identified with CD117 and CD7 stains. CD3, a T-cell marker performed to compare with CD7, highlights a similar percentage of cells. A significant population of CD7-positive, CD3-negative cells is not noted. 10/03/2023 7:25 PM [facility] Pathologist Location at [facility] 10/03/2023 7:25 PM [facility] Disclaimer The performance characteristics of all immunohistochemical and indirect immunofluorescence stains (if any) cited in this report were determined by the Histopathology Laboratory of [facility]. Some of these tests were developed by our own laboratory and have not been cleared or approved by the US Food and Drug Administration. The FDA does not require this test to go through premarket FDA review. These tests are used for clinical purposes. They should not be regarded as investigational or for research. This laboratory is certified under the Clinical Laboratory Improvement Amendments (CLIA) as qualified to perform high complexity clinical laboratory testing. This case has been personally reviewed and interpreted by the attending (teaching) pathologist. 10/03/2023 7:25 PM [facility] Embedded Images 10/03/2023 7:25 PM [facility] Pathology/Cytology PERIPHERAL BLOOD / Unknown Collection / Unknown 10/01/2023 1:50 PM [employer]KER 10/01/2023 2:11 PM [employer]AL [employer]KER Miscellaneous samples (specimen) BONE MARROW SPECIMEN / Unknown 10/01/2023 1:50 PM [employer]AL [employer]KER 10/01/2023 2:11 PM METAL [employer] PIPE [employer]KER Miscellaneous samples (specimen) SPECIMEN FROM BONE MARROW OBTAINED BY ASPIRATION / Unknown 10/01/2023 1:50 PM METAL [employer] PIPE [employer]KER 10/01/2023 2:11 PM METAL [employer] PIPE [employer]KER Miscellaneous samples (specimen) PERIPHERAL BLOOD / Unknown 10/01/2023 1:50 PM [employer]AL [employer]KER 10/01/2023 3:49 PM [employer]AL [employer] PIPE MAKER Umair Tan MD LAB - PATHOLOGY/CYTO LOGY ORDERABLES Performing Organization Address City/State/[facility] Co de Phone Number [facility] [address] [phone] * MYELOID MALIGNANCIES MUTATION PNL (10/01/2023 1:50 PM METAL [employer] P[employer]KER) Only the most recent of2 resultswithin the time period is included. Interpretation Myeloid Malignancy PNL See Note 10/10/2023 12:50 PM METAL ORGAN PIPE [employer]KER [employer] ([facility]) Comment: Myeloid Malignancies Mutation Panel NGS Submitted diagnosis or diagnosis under consideration for variant interpretation: Acute myeloid leukemia, unspecified (AML unspec) Note: Prior NGS testing performed on this patient (most recent [employer] accession [id number]) was reviewed in conjunction with the current case. The previously reported variants are not detected in this case. TIER 1: Variants of Known Clinical Significance in Hematologic Malignancies None found TIER 2: Variants of Unknown Clinical Significance in Hematologic Malignancies None found This result has been reviewed and approved by Cuauhtemoc Garcia M.D. Low coverage regions: Listed below are regions where the average sequencing depth (number of times a particular nucleotide is sequenced) in at least 20% of the [id number] is less than our stringent cutoff of 300. Sensitivity for detection of low allelic frequency variants may be reduced in areas with reduced depth of coverage. GNAS([id number]) intron 1 exon 1 BACKGROUND INFORMATION: Myeloid Malignancies Mutation ?Panel by Next Generation ?Sequencing CHARACTERISTICS: Myeloid malignancies are clonal disorders of hematopoietic stem and progenitor cells that include myelodysplastic syndromes (MDSs), myeloproliferative neoplasms (MPNs), myelodysplastic/myeloproliferative neoplasms (MDS/MPNs), and acute myeloid leukemia (AML). Recent studies have identified recurrently mutated genes with diagnostic and/or prognostic impact in myeloid malignancies. The presence of certain mutations may inform clinical management. This multigene panel by massively parallel sequencing (next generation sequencing) is a more cost-effective approach when compared to the cost of multiple single gene tests. This test can be used to complement the morphologic and cytogenetic workup of myeloid malignancies. GENES TESTED: ANKRD26; ASXL1; ASXL2; BCOR; BCORL1; BRAF; CALR; CBL; CBLB; CEBPA; CSF3R; CUX1*; DDX41; DNMT1*; DNMT3A; ELANE; ETNK1; ETV6; EZH2; FBXW7; FLT3; GATA1; GATA2; GNAS; HNRNPK; IDH1; IDH2; IL7R; JAK1; JAK2; JAK3; KDM6A*; KIT; KMT2A; KRAS; LUC7L2; MPL; NOTCH1; NPM1*; NRAS; NSD1; PHF6; PIGA; PPM1D; DVFN69I; PRPF8; PTPN11; RAD21; RUNX1; SAMD9; SAMD9L; SETBP1; SF3B1; SH2B3; SMC1A; SMC3; SRSF2; STAG2; STAT3; STAT5B*; SUZ12*; TET2; TP53; U2AF1; U2AF2; UBA1; WT1; ZRSR2. *One or more exons of the preferred transcript were not covered by sequencing for the indicated gene; see limitations section below. METHODOLOGY: Genomic DNA was isolated from peripheral blood or bone marrow and then enriched for the targeted exonic regions of the tested genes. The variant status of the targeted genes was determined by massively parallel sequencing. The hg19 (GRCh37) human genome assembly was used as a reference for identifying genetic variants. Clinically significant variants and variants of uncertain significance called in the preferred transcript are reported. LIMITATIONS: Variants outside the targeted regions or below the limit of detection are not identified. Variants in regions that are not included in the preferred transcript for the targeted genes are not detected. In some cases, variants may not be identified due to technical limitations in the presence of pseudogenes or in repetitive or homologous regions. It is also possible some insertion/deletion variants may not be identified. Benign or likely benign variants in the preferred transcript are not reported. The following regions were not sequenced due to technical limitations of the assay: CUX1 ([id number]) exon 24 DNMT1 ([id number]) exon 5 KDM6A ([id number]) exon 13 NPM1 (NM_[id number]) exon 1 STAT5B (NM_[id number]) exons 6-9 SUZ12 (NM_[id number]) exons 1-9 LIMIT OF DETECTION (LOD): 5 percent variant allele fraction (VAF) for single nucleotide variants (SNV) and small variants less than 24 base pairs (bp). Variants greater than 24bp may be detected at LOD, but the analytical sensitivity may be reduced. ANALYTICAL SENSITIVITY: The positive percent agreement (PPA) estimate for the respective variant classes (with 95 percent credibility region) are listed below. Genes included on this test are a subset of a larger methods-based validation from which the PPA values are derived. Single nucleotide variants (SNVs): 96.9 percent (95.1-98.1 percent) Insertions/duplications (1-24bp): 98.1 percent (95.5-99.3 percent) Insertions/duplications (greater than 24bp): greater than 99 percent (92.9-100.0 percent) Deletions (1-24bp): 96.7 percent (92.8-98.7 percent) Deletions (greater than 24bp): 90 percent (79.5-96.1 percent) Multinucleotide variants (MNVs): 97 percent (93.0-99.0 percent) FLT3 ITDs: Greater than 99 percent (97.1-100.0 percent) CLINICAL DISCLAIMER: Results of this test must always be interpreted within the context of clinical findings and other relevant data and should not be used alone for a diagnosis of malignancy. This test is not intended to detect minimal residual disease. This test was developed and its performance characteristics determined by [facility]. It has not been cleared or approved by the U.S. Food and Drug Administration. This test was performed in a CLIA-certified laboratory and is intended for clinical purposes. Myeloid Malignancy Dx Aml Unspec 10/10/2023 12:50 PM [employer]AL [employer] [facility]) Myeloid Malignancy Panel Specimen Bone Marrow 10/10/2023 12:50 PM [employer] [facility]) EER Myeloid Malignancy See Note 10/10/2023 12:50 PM [employer] [facility]) Comment: Authorized individuals can access the [facility] Enhanced Report using the following link: [email or web address] Performed By: [facility] hospital [address] [place] [address] Transition Program Manager: Ebenezer Shipman MD, PhD CLIA Number: [id number] Other BONE MARROW SPECIMEN / Unknown Collection / Unknown 10/01/2023 1:50 PM [employer] 10/01/2023 2:11 PM [employer] Umair Tan MD LAB - PATHOLOGY/CYTO LOGY ORDERABLES Performing Organization Address City/[facility]/ZIP Co de Phone Number [facility]) [address] [place], [place] [address] * LAB MISC TEST (NOT BLOOD) (10/01/2023 1:50 PM [employer]) Only the most recent of6 resultswithin the time period is included. Test Name FLT3 ITD/D835 10/14/2023 2:50 PM [employer]AL [employer] [facility] REF LAB NON INTERF Test Result 10/14/2023 2:50 PM [employer] [facility] REF LAB NON INTERF Comment Ref Lab 10/14/2023 2:50 PM [employer] [facility] REF LAB NON INTERF Other BONE MARROW SPECIMEN / Unknown Collection / Unknown 10/01/2023 1:50 PM [employer] 10/01/2023 2:11 PM [employer] Umair Tan MD LAB - BODY FLUID ORD ERABLES [facility] REF LAB NON INTERF [address] [place] [address], [place] [phone] * FISH PML/BENY PANEL (10/01/2023 1:50 PM [employer]) Only the most recent of2 resultswithin the time period is included. EER PML/BENY Translocation by Fish See Note 10/02/2023 4:29 PM [employer] [facility] ([facility]) Comment: Authorized individuals can access the [facility] Enhanced Report using the following link: [email or web address] Performed By: [facility] [address] [place] [id number] Transition Program Manager: Ebenezer Shipman MD, PhD [facility] Number: [id number] PML/BENY Translocation by FISH See Note 10/02/2023 4:29 PM [employer] [facility] ([facility]) Comment: Test Performed: PML-BENY Translocation by FISH (FISH PML) Specimen Type: Bone Marrow Indication for Testing: Acute Leukemia of Unspecified Cell Type RESULT Normal FISH Result t(15;17) PML::BENY ??Fusion: ??not detected INTERPRETATION There was no evidence of PML::BENY fusion due to translocation (15;17)(q24;q21). This analysis was performed with the PML/BENY probes ([employer]). A total of 200 cells were scored. Cytogenomic Nomenclature (ISCN): nuc jung(PML,BENY)x2[200' This result has been reviewed and approved by Laly Gardner, PhD INTERPRETIVE INFORMATION: PML/BENY Translocation by FISH This test was developed and its performance characteristics determined by [facility]. It has not been cleared or approved by the [place] Food and Drug Administration. This test was performed in a CLIA certified laboratory and is intended for clinical purposes. Other BONE MARROW SPECIMEN / Unknown Collection / Unknown 10/01/2023 1:50 PM [employer] 10/01/2023 2:11 PM [employer] Umair Tan MD LAB - PATHOLOGY/CYTO LOGY ORDERABLES [facility]) [address] [place] [address], [facility] * CHROMOSOME ANALYSIS BONE MARROW PANEL (10/01/2023 1:50 PM [employer]) Only the most recent of2 resultswithin the time period is included. Chromosome Analysis Bone Marrow See Note Normal 10/08/2023 9:09 PM [employer] [facility] ([facility]) Comment: Test Performed: Chromosome Analysis Specimen Type: Bone Marrow Indication for Testing: 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 Number of cells counted: 20 Number of cells analyzed: 20 Number of cells karyotyped: 17 ISCN band level: 400 Banding method: G-Banding RESULT Normal Karyotype (Female) 46,XX[20' INTERPRETATION This analysis showed a normal result. There were no abnormal clones detected within the limits of the technology utilized in this study. NOTE: FISH PML analysis was performed on this sample and reported under [facility] accession [id number]. FISH results were NORMAL. NOTE: FISH AML Panel is PENDING on this sample and will be reported under [facility] accession [id number]. This result has been reviewed and approved by Kimberly Alaniz, Ph.D., [facility] A portion of this analysis was performed at the following location(s): [facility] Critical access hospital Site [facility]-[place]#1 [facility], [address] [place] [address], [address], [place], [address], Transition Program Manager: Kimberly Alaniz, PhD, [facility] INTERPRETIVE INFORMATION: Chromosome Analysis, Bone Marrow This test was developed and its performance characteristics determined by [facility]. It has not been cleared or approved by the US Food and Drug Administration. This test was performed in a CLIA certified laboratory and is intended for clinical purposes. EER Chromosome Analysis Bone Marrow See Note 10/08/2023 9:09 PM METAL [employer] [facility] ([facility]) Comment: Authorized individuals can access the [facility] Enhanced Report using the following link: [email or web address] Performed By: Critical access hospital [address] [place] [id number] Transition Program Manager: Ebenezer Shipman MD, PhD CLIA Number: [id number] Bone marrow BONE MARROW SPECIMEN / Unknown 10/01/2023 1:50 PM [employer] 10/01/2023 2:11 PM [employer] Umair Tan MD LAB - PATHOLOGY/CYTO LOGY ORDERABLES [facility]) [address] [place] [place] [id number], [facility] * CT ANGIO BRAIN AND NECK (10/01/2023 12:28 AM [employer]) Anatomical Region Laterality Modality Head Computed Tomogra phy 10/01/2023 12:2 9 AM [employer] Impressions 10/01/2023 8:30 AM [employer] IMPRESSION: 1.Previously described trace volume of subarachnoid hemorrhage within the right central sulcus is not well appreciated on the current study. No evidence of acute intracranial hemorrhage on the current study. There appears to be some vascularity within the right central sulcus, likely the source of the signal seen on the prior MRI. Findings are nonspecific and could represent a variant venous structure with slow flow. If there is clinical concern, follow-up imaging could be obtained for further evaluation. 2.Findings compatible with idiopathic intracranial hypertension, AKA pseudotumor cerebri. Clinical correlation is recommended. 3.No large arterial occlusions or significant stenoses identified in the head or neck. 4.Heterogeneous nodule within the left thyroid lobe measures up to 2.1 cm in craniocaudal length. Recommend correlation with prior imaging, or alternatively a nonemergent thyroid ultrasound may be obtained for further characterization. Viz.AI was used for large vessel occlusion detection. Results of this exam were communicated with closed loop confirmation to Dr. Sivakumar Bhatt by Dr. Davison on ??10/01/2023 at 8:20 AM with read back compression and verification. Report dictated by tSeve Street M.D. (residential remodeling subcontractor) 10/01/2023 12:40 AM IAugustine MD have personally reviewed and interpreted this examination/study. > Interpreting Provider: Augustine Davison MD on 10/01/2023 8:30 AM Narrative 10/01/2023 8:30 AM [employer] PROCEDURE: ??CT ANGIO BRAIN AND NECK, DATE/TIME OF EXAM: ??10/01/2023 12:28 AM, LOCATION ??[facility] INDICATION: R90.89: Abnormal imaging of central nervous system ADDITIONAL CLINICAL INFORMATION: Ordering Provider Reason For Exam: ??SAH EXAMINATION: 1. Computed tomographic (CT) angiography of the head without and with contrast 2. CT angiography of the neck with contrast CONTRAST: ??IOPAMIDOL 76 % IV SOLN:75 mL TECHNIQUE: CT of the head was performed without contrast according to standard protocol. Then CT angiography of the head and neck was obtained after the uneventful administration of 75 mL Isovue-370 intravenous contrast. Three dimensional postprocessing was performed by the technologist and sent to the workstation for review. Stenosis measurements are based on NASCET criteria. ??CT dose reduction technique was used, including Automated Exposure Control. COMPARISON: CT head 09/30/2023, MRI brain 09/29/2023 FINDINGS: Non-angiographic findings: Previously described trace volume of subarachnoid hemorrhage within the right central sulcus is not well appreciated on the current study. Otherwise, there is no evidence of acute intracranial hemorrhage. The ventricles are of normal size, shape, and morphology. The basilar cisterns are patent. No mass effect or midline shift is seen. The mejia-white matter differentiation is normal. Mild nonspecific prominence of the sulci near the vertex. There is a partial empty sella. Redemonstration of tortuous, dilated optic nerve sheaths. The visualized portions of the orbits appear otherwise grossly unremarkable. There is mild paranasal sinus disease. The nasal septum is mildly deviated to the left with a small septal spur. The imaged mastoid air cells appear grossly clear. No acute fracture is identified. A right internal jugular approach Port-A-Cath is seen with catheter coursing along the superior vena cava and terminating out of the [id number]. There is a heterogeneous nodule within the left thyroid lobe which measures up to 1.2 x 1.3 x 2.1 cm (AP x TV x CC) (series 16, image 30; series 17, image 46). Angiographic findings: The visible aortic arch appears normal. The configuration of the brachiocephalic vessels is typical. The innominate artery and both subclavian arteries appear normal. The right common and internal carotid arteries as well as the right carotid bifurcation appear normal. The left common and internal carotid arteries as well as the left carotid bifurcation appear normal. A retropharyngeal course of the left internal carotid artery and the left carotid bifurcation. The cervical vertebral arteries appear normal. There appears to be some vascularity within the right central sulcus, (series 14, images 64-65, and series 13, image 67, for example), likely the source of the signal seen on the prior MRI. There is atherosclerotic disease involving the distal internal carotid arteries, predominantly on the right, without significant focal stenosis. The anterior and middle cerebral arteries appear normal. The distal vertebral arteries appear normal. The basilar artery and posterior cerebral arteries appear normal. No aneurysms, vascular occlusions, or intracranial stenoses are identified. The dural venous sinuses are patent. There is focal prominence of the junction of the vein of Mayfield and the straight sinus but this only seen on the sagittal image while the transverse diameter is not widened on the coronal image, (series 14, image 45, and series 13, image 74). Findings could represent anatomic variant. Findings are nonspecific. Of note, there appears to be stenosis of the distal end of the transverse dural venous sinuses. Procedure Note Augustine Davison MD - 10/01/2023 PROCEDURE: CT ANGIO BRAIN AND NECK, DATE/TIME OF EXAM: 10/01/2023 12:28 AM, LOCATION [facility] INDICATION: R90.89: Abnormal imaging of central nervous system ADDITIONAL CLINICAL INFORMATION: Ordering Provider Reason For Exam: SAH EXAMINATION: 1. Computed tomographic (CT) angiography of the head without and with contrast 2. CT angiography of the neck with contrast CONTRAST: IOPAMIDOL 76 % IV SOLN:75 mL TECHNIQUE: CT of the head was performed without contrast according to standard protocol. Then CT angiography of the head and neck was obtained after the uneventful administration of 75 mL Isovue-370 intravenous contrast. Three dimensional postprocessing was performed by the technologist and sent to the workstation for review. Stenosismeasurements are based on NASCET criteria. CT dose reduction technique was used, including Automated Exposure Control. COMPARISON: CT head 09/30/2023, MRI brain 09/29/2023 FINDINGS: Non-angiographic findings: Previously described trace volume of subarachnoid hemorrhage within the right central sulcus is not well appreciated on the current study. Otherwise, there is no evidence of acute intracranial hemorrhage. The ventricles are of normal size, shape, and morphology. The basilarcisterns are patent. No mass effect or midline shift is seen. The mejia-whitematter differentiation is normal. Mild nonspecific prominence of the sulci near the vertex. There is a partial empty sella. Redemonstration of tortuous, dilated optic nerve sheaths. The visualized portions of the orbitsappear otherwise grossly unremarkable. There is mild paranasal sinus disease.The nasal septum is mildly deviated to the left with a small septal spur.The imaged mastoid air cells appear grossly clear. No acute fracture is identified. A right internal jugular approach Port-A-Cath is seen with catheter coursing along the superior vena cava and terminating out of the [id number]-rr-[id number]. There is a heterogeneous nodule within the left thyroidlobe which measures up to 1.2 x 1.3 x 2.1 cm (AP x TV x CC) (series 16, image 30; series 17, image 46). Angiographic findings: The visible aortic arch appears normal. The configuration of the brachiocephalic vessels is typical. The innominate artery and both subclavian arteries appear normal. The right common and internal carotid arteries as well as the right carotid bifurcation appear normal. Theleft common and internal carotid arteries as well as the left carotid bifurcation appear normal. A retropharyngeal course of the left internal carotid artery and the left carotid bifurcation. The cervical vertebral arteries appear normal. There appears to be some vascularity within the right central sulcus, (series 14, images 64-65, and series 13, image 67, for example), likelythe source of the signal seen on the prior MRI. There is atherosclerotic disease involving the distal internal carotid arteries, predominantly on the right, without significant focalstenosis. The anterior and middle cerebral arteries appear normal. The distal vertebral arteries appear normal. The basilar artery and posteriorcerebral arteries appear normal. No aneurysms, vascular occlusions, orintracranial stenoses are identified. The dural venous sinuses are patent. There is focal prominence of the junction of the vein of Mayfield and the straight sinus but this only seen on the sagittal image while the transverse diameter is not widened on the coronal image, (series 14, image 45, and series 13, image 74). Findings could represent anatomic variant.Findings are nonspecific. Of note, there appears to be stenosis of the distal endof the transverse dural venous sinuses. IMPRESSION: 1.Previously described trace volume of subarachnoid hemorrhage withinthe right central sulcus is not well appreciated on the current study. No evidence of acute intracranial hemorrhage on the current study. There appears to be some vascularity within the right central sulcus, likelythe source of the signal seen on the prior MRI. Findings are nonspecific and could represent a variant venous structure with slow flow. If there is clinical concern, follow-up imaging could be obtained for further evaluation. 2.Findings compatible with idiopathic intracranial hypertension, AKA pseudotumor cerebri. Clinical correlation is recommended. 3.No large arterial occlusions or significant stenoses identified in the head or neck. 4.Heterogeneous nodule within the left thyroid lobe measures up to 2.1cm in craniocaudal length. Recommend correlation with prior imaging, or alternatively a nonemergent thyroid ultrasound may be obtained forfurther characterization. Viz.AI was used for large vessel occlusion detection. Results of this exam were communicated with closed loop confirmation toDr. Sivakumar Bhatt by Dr. Davison on 10/01/2023 at 8:20 AM with read back compression and verification. Report dictated by Steve Street M.D. (residential remodeling subcontractor) 10/01/2023 12:40 AM Augustine Bartholomew MD have personally reviewed and interpretedthis examination/study. > Interpreting Provider: Augustine Davison MD on 10/01/2023 8:30 AM Umair Tan MD CT ORDERABLES * TRANSFUSE PLATELET PHERESIS UNIT(S) (09/30/2023 7:16 PM [employer]) Umair Tan MD NURSING - BLOOD PROD TRANSFUSION * MRI ORBITS OR FACE WWO CONTRAST (09/29/2023 9:19 PM [employer]) Anatomical Region Laterality Modality Head Magnetic Resonan ce 09/30/2023 10:2 3 AM [employer] Impressions 09/30/2023 1:43 PM [employer]AL [employer] IMPRESSION: 1.There is lack of FLAIR suppression along cerebral sulci predominantly involving the right central sulcus without associated susceptibility. This is most likely artifactual, other differentials include developing subarachnoid hemorrhage follow-up head CT could be performed to rule out any hyperacute subarachnoid hemorrhage. 2.Otherwise no acute intracranial abnormality. No areas of abnormal contrast enhancement within the limits of the study. 3.Limited evaluation of the orbits images due to motion artifact. Within this limitation no acute finding is seen within orbits. Slight tortuous course of the bilateral optic nerves, partially empty sella appearance could be normal variant ,however could also be seen in the setting of idiopathic intracranial hypertension. The report was drafted by Mary Muir MD (Public Transit Specialist). Preliminary findings were discussed in detail with the patient's care provider, Dr. Tan by Dr. Muir via telephone at 11:03 AM on 09/30/2023 with readback comprehension and verification. I, Sara Huitron MD have personally reviewed and interpreted this examination/study. 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 CONTRAST: GADOBUTROL 1 MMOL/ML IV SSM SO:10 mL FINDINGS: Brain: Postcontrast images are slightly limited by motion artifact. There is a linear T2/FLAIR hyperintensity within the right central sulcus. There is also additional subtle lack of FLAIR suppression along the posterior bilateral cerebral sulci There is no associated susceptibility artifact. There is a vessel seen in the area on the postcontrast images. Otherwise no evidence of acute or chronic hemorrhage is identified. No evidence of acute cerebral infarction is seen. The ventricles are of normal size, shape, and morphology. No mass effect or midline shift is seen. No enhancing lesions are identified, within the limits of the study. The corpus callosum appears normal. Partially empty sella appearance.. The posterior fossa, brainstem, and craniocervical junction appear normal. The visualized portions of the mastoids appear normal. Normal flow voids are demonstrated in the carotid arteries and basilar artery. The calvarium and visualized cervical spine appear normal. Orbits: Limited exam due to motion artifact and some areas of failure of fat suppression. Within this limitation: The globes and extraocular muscles appear normal. The lacrimal glands appear normal. Slightly tortuous course of the bilateral optic nerves. Slight flattening of the posterior surface of the globes bilaterally (image 11, series 5). The optic nerves are grossly symmetric in size and signal. No abnormal enhancement is identified in either optic nerve. The optic chiasm and suprasellar cistern appear normal. Meckel's cave and the cavernous sinuses appear normal. Mild mucosal thickening in the left frontal, maxillary sinuses are seen. 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 CONTRAST: GADOBUTROL 1 MMOL/ML IV SSM SO:10 mL FINDINGS: Brain: Postcontrast images are slightly limited by motion artifact. There is a linear T2/FLAIR hyperintensity within the right centralsulcus. There is also additional subtle lack of FLAIR suppression along the posterior bilateral cerebral sulci There is no associated susceptibility artifact. There is a vessel seen in the area on the postcontrast images. Otherwise no evidence of acute or chronic hemorrhage is identified. No evidence of acute cerebral infarction is seen. The ventricles are ofnormal size, shape, and morphology. No mass effect or midline shift is seen. No enhancing lesions are identified, within the limits of the study. The corpus callosum appears normal. Partially empty sella appearance.. The posterior fossa, brainstem, and craniocervical junction appear normal. The visualized portions of the mastoids appear normal. Normal flow voids are demonstrated in the carotid arteries and basilar artery. Thecalvarium and visualized cervical spine appear normal. Orbits: Limited exam due to motion artifact and some areas of failure of fat suppression. Within this limitation: The globes and extraocular muscles appear normal. The lacrimal glands appear normal. Slightly tortuous course of the bilateral optic nerves. Slight flattening of the posterior surface of the globes bilaterally(image 11, series 5). The optic nerves are grossly symmetric in size andsignal. No abnormal enhancement is identified in either optic nerve. The optic chiasm and suprasellar cistern appear normal. Meckel's cave and the cavernous sinuses appear normal. Mild mucosal thickening in the left frontal, maxillary sinuses are seen. IMPRESSION: 1.There is lack of FLAIR suppression along cerebral sulci predominantly involving the right central sulcus without associated susceptibility.This is most likely artifactual, other differentials include developing subarachnoid hemorrhage follow-up head CT could be performed to rule out any hyperacute subarachnoid hemorrhage. 2.Otherwise no acute intracranial abnormality. No areas of abnormal contrast enhancement within the limits of the study. 3.Limited evaluation of the orbits images due to motion artifact. Within this limitation no acute finding is seen within orbits. Slight tortuous course of the bilateral optic nerves, partially empty sella appearance could be normal variant ,however could also be seen in the setting of idiopathic intracranial hypertension. The report was drafted by Mary Muir MD (Public Transit Specialist). Preliminary findings were discussed in detail with the patient's care provider, Dr. Tan by Dr. Muir via telephone at 11:03 AM on 09/30/2023 with readback comprehension and verification. Sara Bartholomew MD have personally reviewed and interpreted this examination/study. > Interpreting Provider: Sara Huitron MD on 09/30/2023 1:43 PM Rohun Mora DO MR ORDERABLES * MRI BRAIN WWO CONTRAST (09/29/2023 9:18 PM [employer]) Anatomical Region Laterality Modality Head Magnetic Resonan ce 09/30/2023 10:2 3 AM [employer] Impressions 09/30/2023 1:43 PM [employer] IMPRESSION: 1.There is lack of FLAIR suppression along cerebral sulci predominantly involving the right central sulcus without associated susceptibility. This is most likely artifactual, other differentials include developing subarachnoid hemorrhage follow-up head CT could be performed to rule out any hyperacute subarachnoid hemorrhage. 2.Otherwise no acute intracranial abnormality. No areas of abnormal contrast enhancement within the limits of the study. 3.Limited evaluation of the orbits images due to motion artifact. Within this limitation no acute finding is seen within orbits. Slight tortuous course of the bilateral optic nerves, partially empty sella appearance could be normal variant ,however could also be seen in the setting of idiopathic intracranial hypertension. The report was drafted by Mary Muir MD (Public Transit Specialist). Preliminary findings were discussed in detail with the patient's care provider, Dr. Tan by Dr. Muir via telephone at 11:03 AM on 09/30/2023 with readback comprehension and verification. Sara Bartholomew MD have personally reviewed and interpreted this examination/study. 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 CONTRAST: GADOBUTROL 1 MMOL/ML IV SSM SO:10 mL FINDINGS: Brain: Postcontrast images are slightly limited by motion artifact. There is a linear T2/FLAIR hyperintensity within the right central sulcus. There is also additional subtle lack of FLAIR suppression along the posterior bilateral cerebral sulci There is no associated susceptibility artifact. There is a vessel seen in the area on the postcontrast images. Otherwise no evidence of acute or chronic hemorrhage is identified. No evidence of acute cerebral infarction is seen. The ventricles are of normal size, shape, and morphology. No mass effect or midline shift is seen. No enhancing lesions are identified, within the limits of the study. The corpus callosum appears normal. Partially empty sella appearance.. The posterior fossa, brainstem, and craniocervical junction appear normal. The visualized portions of the mastoids appear normal. Normal flow voids are demonstrated in the carotid arteries and basilar artery. The calvarium and visualized cervical spine appear normal. Orbits: Limited exam due to motion artifact and some areas of failure of fat suppression. Within this limitation: The globes and extraocular muscles appear normal. The lacrimal glands appear normal. Slightly tortuous course of the bilateral optic nerves. Slight flattening of the posterior surface of the globes bilaterally (image 11, series 5). The optic nerves are grossly symmetric in size and signal. No abnormal enhancement is identified in either optic nerve. The optic chiasm and suprasellar cistern appear normal. Meckel's cave and the cavernous sinuses appear normal. Mild mucosal thickening in the left frontal, maxillary sinuses are seen. 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 CONTRAST: GADOBUTROL 1 MMOL/ML IV SSM SO:10 mL FINDINGS: Brain: Postcontrast images are slightly limited by motion artifact. There is a linear T2/FLAIR hyperintensity within the right centralsulcus. There is also additional subtle lack of FLAIR suppression along the posterior bilateral cerebral sulci There is no associated susceptibility artifact. There is a vessel seen in the area on the postcontrast images. Otherwise no evidence of acute or chronic hemorrhage is identified. No evidence of acute cerebral infarction is seen. The ventricles are ofnormal size, shape, and morphology. No mass effect or midline shift is seen. No enhancing lesions are identified, within the limits of the study. The corpus callosum appears normal. Partially empty sella appearance.. The posterior fossa, brainstem, and craniocervical junction appear normal. The visualized portions of the mastoids appear normal. Normal flow voids are demonstrated in the carotid arteries and basilar artery. Thecalvarium and visualized cervical spine appear normal. Orbits: Limited exam due to motion artifact and some areas of failure of fat suppression. Within this limitation: The globes and extraocular muscles appear normal. The lacrimal glands appear normal. Slightly tortuous course of the bilateral optic nerves. Slight flattening of the posterior surface of the globes bilaterally(image 11, series 5). The optic nerves are grossly symmetric in size andsignal. No abnormal enhancement is identified in either optic nerve. The optic chiasm and suprasellar cistern appear normal. Meckel's cave and the cavernous sinuses appear normal. Mild mucosal thickening in the left frontal, maxillary sinuses are seen. IMPRESSION: 1.There is lack of FLAIR suppression along cerebral sulci predominantly involving the right central sulcus without associated susceptibility.This is most likely artifactual, other differentials include developing subarachnoid hemorrhage follow-up head CT could be performed to rule out any hyperacute subarachnoid hemorrhage. 2.Otherwise no acute intracranial abnormality. No areas of abnormal contrast enhancement within the limits of the study. 3.Limited evaluation of the orbits images due to motion artifact. Within this limitation no acute finding is seen within orbits. Slight tortuous course of the bilateral optic nerves, partially empty sella appearance could be normal variant ,however could also be seen in the setting of idiopathic intracranial hypertension. The report was drafted by Mary Muir MD (Public Transit Specialist). Preliminary findings were discussed in detail with the patient's care provider, Dr. Tan by Dr. Muir via telephone at 11:03 AM on 09/30/2023 with readback comprehension and verification. I, Sara Huitron MD have personally reviewed and interpreted this examination/study. > Interpreting Provider: Sara Huirton MD on 09/30/2023 1:43 PM Librado Mora DO MR ORDERABLES * TRANSFUSION REACTION PANEL (09/29/2023 4:05 PM [employer]) Direct Vladimir (RICHI) NEG 09/29 5:29 PM [employer] [facility] Comment:RICHI READ MICROSCOPIC ALLY ABO Rh O POS 09/29/2023 5:29 PM [employer] [facility] Blood Bank BLOOD SPECIMEN / Unknown Line Draw / Unknown 09/29/2023 4:05 PM [employer] 09/29/2023 4:25 PM [employer] Librado Mora DO LAB - BLOOD BANK ORD ERABLES [facility] [address] [place] [address], [facility] [phone] * ECHO LIMITED OR FOLLOWUP (09/27/2023 9:36 AM [employer]) Only the most recent of2 resultswithin the time period is included. BSA 2.0812209 m2 SSM CV FUJ I PACS RV-wall basal diam 3.1 2.5 - 4.1 cm SSM CV FUJI PACS RV-wall longitudinal diam 7.0 5.9 - 8.3 cm SSM CV FUJI PACS TV S' tennille 14.567 cm/s SSM CV FUJ I PACS TAPSE 2.071 1.7 cm SSM CV FUJ I PACS IVC size 2.1 cm SSM CV FUJ I PACS LV biplane EF 71 54 - 74 % SSM CV FUJI PACS LV A2C EF 70 52 - 76 % SSM CV FUJ I PACS LV A4C EF 71 46 - 78 % SSM CV FUJ I PACS EF 2D Bullet 59.845 % SSM CV FUJI PACS LV stroke vol BP 80.2 mL SSM CV FUJI PACS LV stroke vol BP index 33.9 mL/m2 SSM CV FUJI PACS LV stroke vol 2D teich 76.742 ml SSM CV FUJI PACS LV Stroke Index 2D Teich 32.46 mL/m2 SSM CV FUJI PACS LV stroke vol index A4C MOD 77.593 ml/m2 SSM CV FUJI PACS LVIDd 4.81 3.8 - 5.2 cm SSM CV FUJI PACS LVIDs 2.86 2.2 - 3.5 cm SSM CV FUJI PACS IVSd 2D 0.966 0.6 - 0.9 cm SSM CV FUJI PACS LVPWd 1.01 0.6 - 0.9 cm SSM CV FUJI PACS Fractional Shortening 2D 40 28 - 44 % SSM CV FUJI PACS LV ESV BP 32.654 14 - 42 mL SSM CV FUJI PACS LV ESV index BP 13.8 8 - 24 mL/m2 SSM CV FUJI PACS LV ESV A2C 31.552 10 - 54 mL SSM CV FUJI PACS LV ESV index A2C 13.35 6 - 30 mL/m2 SSM CV FUJI PACS LV EDV BP 112.891 46 - 106 mL SSM CV FUJI PACS LV ESV A4C 31.516 12 - 60 mL SSM CV FUJI PACS LV ESV index A4C 13.33 7 - 35 mL/m2 SSM CV FUJI PACS LV EDV index BP 47.8 29 - 61 mL/m2 SSM CV FUJI PACS LV EDV A2C 104.893 41 - 133 mL SSM CV FUJI PACS LV EDV index A2C 44.37 26 - 74 mL/m2 SSM CV FUJI PACS LV EDV A4C 109.144 mL SSM CV FU JI PACS LV ESV 2D 31.185 14 - 42 mL SSM CV FUJI PACS LV EDV index A4C 46.17 30 - 82 mL/m2 SSM CV FUJI PACS LV ESV index 2D 13.19 8 - 24 mL/m2 SSM CV FUJI PACS LV EDV 2D 107.927 46 - 106 mL SSM CV FUJI PACS LV EDV index 2D 45.65 29 - 61 mL/m2 SSM CV FUJI PACS LV EDV A/L A4C 117.138 mL SSM C V FUJI PACS LV EDV index A/L A4C 49.55 mL/m2 SSM CV FUJI PACS LVOT diam 2.1 cm SSM CV FUJ I PACS LVOT area 3.56 cm2 SSM CV FUJ I PACS LV RWT 0.421 SSM CV FUJ I PACS LV Wall A2C 8.762 cm SSM CV F UJI PACS LV Wall A4C 9.494 cm SSM CV F UJI PACS LV Area Wall A2C 33.635 cm2 SSM CV FUJI PACS LV Area Wall A4C 36.171 cm2 SSM CV FUJI PACS IVS/LVPW 0.956 SSM CV FUJ I PACS LV mass 2D 168.043 66 - 150 g SSM CV FUJI PACS LV mass index 2D 71.08 44 - 88 g/m2 SSM CV FUJI PACS LA vol BP 47.287 mL SSM CV FUJ I PACS LA vol index 20.0 16 - 34 mL/m2 SSM CV FUJI PACS LA area A4C 17.23 20 cm2 SSM CV F UJI PACS LA size 3.586 2.7 - 3.8 cm SSM CV FUJI PACS LA vol BP A-L 48.264 mL SSM CV FUJI PACS RV-wall mid diam 2.9 1.9 - 3.5 cm SSM CV FUJI PACS RVIDd 3.6 cm SSM CV FUJ I PACS RV RAPHAEL 8.692 3 - 11 cm2 SSM CV FUJI PACS RV RAPHAEL index 3.68 1.6 - 6.4 cm2/m2 SSM CV FUJI PACS RV FUNMILAYO 19.3 cm2 SSM CV FUJ I PACS RV FUNMILAYO index 8.16 4.5 - 11.5 cm2/m2 SSM CV FUJI PACS RV wall thickness 0.5 0.1 - 0.5 cm SSM CV FUJI PACS RV FAC 54.89 35 % SSM CV FUJ I PACS RA area 16.824 cm2 SSM CV FUJ I PACS TV annulus 2.63 cm SSM CV FU JI PACS Sinus of Valsalva 2.78 cm SS M CV FUJI PACS Ascending aorta 2.85 cm SSM CV FUJI PACS ST junction 2.614 cm SSM CV F UJI PACS Sinus of valsalva index 1.18 cm/m2 SSM CV FUJI PACS ST junction index 1.11 cm/m2 SS M CV FUJI PACS IVC size sniff 0.713 cm SSM C V FUJI PACS Posterior dimension 0.0 cm SSM CV FUJI PACS LA ESV A4C MOD Index 19 ml/m2 SSM CV FUJI PACS LA ESV A2C MOD Index 21 ml/m2 SSM CV FUJI PACS Aortic annulus 2.387 cm SSM C V FUJI PACS [id number] 7.722 cm SSM CV FUJ I PACS [id number] 7.224 cm SSM CV FUJ I PACS Prox Asc Ao Diameter Index 1.205 cm SSM CV FUJI PACS LA AREA (2C) 18.501 SSM CV FUJI PACS LVIDs index 1.21 1.3 - 2.1 cm/m2 SSM CV FUJI PACS LV LVIDd index 2.03 2.3 - 3.1 cm/m2 SSM CV FUJI PACS RA area length vol 42.0 mL SSM CV FUJI PACS RA vol index 17.77 mL/m2 SSM CV FUJI PACS Anatomical Region Laterality Modality Ultrasound Narrative 09/27/2023 9:30 PM [employer] ?Left??Ventricle: Left ventricle size is normal. EDV Index BP is 47.8 mL/m2. ESV Index BP is 13.8 mL/m2. Normal wall thickness. LVPWd is 1.01 cm. Ventricular mass is normal. Mass index 2D is 71.08 g/m2. Normal systolic function with a visually estimated EF of 70 - 75%. EF by 2D Brian biplane is 71%. Normal wall motion. Septal motion is normal. ?Right Ventricle: Right ventricle size is normal. Normal free wall thickness. Normal wall motion. Normal systolic function. TAPSE is 2.071 cm. Fractional area change (FAC) is 54.89%. ?Left Atrium: Left atrium size is normal. Left atrium volume index is 20.0 mL/m2. ?Right Atrium: Right atrium size is normal. RA volume index is 17.77 mL/m2. ?No pericardial effusion. ?Aorta: Normal sized annulus, sinus of Valsalva (aortic root) and ascending aorta. Sinotubular junction indexed to BSA is 1.11 cm/m2. Sinus of Valsalva indexed to BSA is 1.18 cm/m2. Normal echocardiogram by 2D echocardiography. Left Ventricle Left ventricle size is normal. EDV Index BP is 47.8 mL/m2. ESV Index BP is 13.8 mL/m2. Normal wall thickness. LVPWd is 1.01 cm. Ventricular mass is normal. Mass index 2D is 71.08 g/m2. Normal systolic function with a visually estimated EF of 70 - 75%. EF by 2D Brian biplane is 71%. Normal wall motion. Septal motion is normal. Right Ventricle Right ventricle size is normal. Normal free wall thickness. Normal wall motion. Normal systolic function. TAPSE is 2.071 cm. Fractional area change (FAC) is 54.89%. Left Atrium Left atrium size is normal. Left atrium volume index is 20.0 mL/m2. Right Atrium Right atrium size is normal. RA volume index is 17.77 mL/m2. IVC/SVC IVC diameter is less than or equal to 21 mm and decreases greater than 50% during inspiration; therefore the estimated right atrial pressure is normal (~3 mmHg). IVC is normal in size. SVC was not assessed. Mitral Valve Not assessed. Valve structure is normal. No leaflet thickening. No stenosis. Tricuspid Valve Not assessed. Valve structure is normal. No leaflet thickening. No stenosis. Aortic Valve Not assessed. Valve structure is normal. No leaflet thickening. No stenosis. Pulmonic Valve Not well visualized. Ascending Aorta Normal sized annulus, sinus of Valsalva (aortic root) and ascending aorta. Sinotubular junction indexed to BSA is 1.11 cm/m2. Sinus of Valsalva indexed to BSA is 1.18 cm/m2. Pericardium The pericardium is normal. No pericardial effusion. Study Details Study quality was fair. A limited 2D and strain echocardiogram was performed. The apical, parasternal and subcostal views were obtained. Patient declined ultrasound contrast. Patient exhibited sinus tachycardia. Technical difficulties due to patient's body habitus. Prior Study Prior TTE study available for comparison. Prior study date: 09/05/2023. No significant changes noted compared to the prior study. Wall Scoring Baseline Score Index: 1.00 The left ventricular wall motion is normal. Jair Burgess MD ECHO CUPID * (ABNORMAL) OSMOLALITY BLOOD (09/26/2023 9:41 AM [employer]) Osmolality 274(L) 275 - 295 mOsm/kg 09/26/2023 10:41 AM [employer] [facility] Blood BLOOD SPECIMEN / Unknown Venipuncture / Unknown 09/26/2023 9:41 AM [employer] 09/26/2023 9:41 AM [employer] Bernard Mancuso MD LAB - CHEMISTRY JON NAIDU [address] [address], [facility] [phone] * SODIUM URINE RANDOM (09/26/2023 9:12 AM [employer]) Sodium Urine <20 Not Established mmol/L 09/26/2023 9:35 AM [employer] [facility] Urine URINE SPECIMEN OBTAINED BY CLEAN CATCH PROCEDURE / Unknown Collection / Unknown 09/26/2023 9:12 AM [employer] 09/26/2023 9:22 AM [employer] Bernard Mancuso MD LAB - URINE CHEMISTR Y ORDERABLES Performing Organization Address [facility]/ZIP Co de Phone Number [address] [address], [place] [phone] * OSMOLALITY URINE (09/26/2023 9:12 AM [employer]) Pathologist [facility] Osmolality Urine 270 50 - 1,200 mOsm/kg 09/26/2023 9:58 AM [employer] [facility] Urine URINE SPECIMEN OBTAINED BY CLEAN CATCH PROCEDURE / Unknown Collection / Unknown 09/26/2023 9:12 AM [employer] 09/26/2023 9:22 AM [employer] Bernard Mancuso MD LAB - URINE CHEMISTR Y ORDERABLES Performing Organization Address [facility]/ZIP Co de Phone Number [address] [address], [place] [phone] * TRANSFUSE PLATELET PHERESIS UNIT(S) (09/25/2023 5:23 PM [employer]) Jair Burgess MD NURSING - BLOOD PROD TRANSFUSION * TROPONIN-I HIGH SENSITIVE (09/25/2023 2:33 PM [employer]) [facility] Troponin I High Sensitive 9 <=14 ng/L 09/25/2023 3:17 PM [employer] [facility] Blood BLOOD SPECIMEN / Unknown Venipuncture / Unknown 09/25/2023 2:33 PM [employer] 09/25/2023 2:44 PM [employer] Jair Burgess MD LAB - CHEMISTRY ORDE RABQI Performing Organization Address [facility]/ZIP Co de Phone Number [address] [address], [place] [phone] * B-TYPE NATRIURETIC PEPTIDE (09/25/2023 2:33 PM [employer]) Pathologist [facility] BNP 87 <100 pg/mL 09/25/2023 3:17 PM [employer] [facility] Comment: A decision threshold of 100 pg/mL has been demonstrated to provide the maximal combination of sensitivity, specificity and predictive value for the diagnosis of congestive heart failure (CHF). ??Virtually all patients with no evidence of CHF have BNP values less than 100 pg/mL. A BNP value greater than 100 pg/mL is consistent with the diagnosis of CHF in the appropriate clinical setting. In a study of 693 patients (male and female) with diagnosed CHF, the following values were determined based on the NYHA functional classification system: NYHA Functional Class ?Mean Valule (pg/mL) ? % >100 pg/mL ?I ?320 ? 58.1 ?II ? 432 ? 73.0 ?III ?656 ? 79.0 ?IV ?1635 ? 98.3 ? Blood BLOOD SPECIMEN / Unknown Venipuncture / Unknown 09/25/2023 2:33 PM [employer] 09/25/2023 2:44 PM [employer] Jair Burgess MD LAB - CHEMISTRY JON NAIDU [facility] [address] [place] [address], [facility] [phone] * (ABNORMAL) BLOOD GASES ART + COOX PANEL (09/25/2023 12:14 AM [facility]) pH Arterial 7.45 7.35 - 7.45 pH 09/25/2023 12:28 AM [facility] pO2 Arterial 94 80 - 100 mmHg 09/25/2023 12:28 AM [facility] pCO2 Arterial 25(L) 35 - 45 mmHg 12:28 AM [facility] HCO3 Arterial 17.4(L) 20.0 - 30.0 mmol/L 09/25/2023 12:28 AM [facility] BE Arterial -6.0(L) -2.0 - 2.0 mmol/L 09/25/2023 12:28 AM [facility] Oxyhemoglobin Arterial 97.6 % 09/25/2023 12:28 AM [facility] Dexoyhemoglobin (HHB) % <1.0 % 09/25/2023 12:28 AM [facility] Methemoglobin <0.8 0.0 - 2.0 % 09/25/2023 12:28 AM [facility] Carboxyhemoglobin 2.0 0.0 - 2.0 % 2023 12:28 AM [facility] O2 Content Arterial 8.6 Interpret within clinical context ml/dL 09/25/2023 12:28 AM [facility] Hemoglobin by COOX 6.1(L) 12.0 - 15.6 g/dL 09/25/2023 12:28 AM [facility] O2 Saturation Arterial 100 90 - 100 % 09/25/2023 12:28 AM [facility] FI O2 Arterial 21.0 % 09/25/2023 12:28 AM [facility] Blood, arterial ARTERIAL BLOOD SPECIMEN / Unknown Arterial Puncture / Unknown 09/25/2023 12:14 AM [employer] 09/25/2023 12:25 AM [facility] - 09/25/2023 12:28 AM [employer] Carboxyhemoglobin Normal Concentration: Non-smokers: 0-2%; Smokers: 0-9%; Toxic: >20% Genny Leigh MD LAB - BLOOD GASES OR DERABLES Performing Organization Address [facility]/ZIP Co de Phone Number [address] [address], [facility] [phone] * VANCOMYCIN LEVEL TROUGH (09/23/2023 2:09 AM [employer]) [facility] Vancomycin Trough 11.0 10.0 - 20.0 ug/mL 09/23/2023 2:49 AM [employer] [facility] Blood BLOOD SPECIMEN / Unknown Line Draw / Unknown 09/23/2023 2:09 AM [employer] 09/23/2023 2:23 AM [employer] Narrative [facility] - 09/23/2023 2:49 AM [employer] See institution protocol. Soraya Malik MD LAB - CHEMISTRY ORDERABLES Performing Organization Address [facility] Co de Phone Number [address] [address], [facility] [phone] * VANCOMYCIN LEVEL PEAK (09/22/2023 10:21 PM [employer]) [facility] Vancomycin Peak 28.4 25.0 - 40.0 ug/mL 09/22/2023 10:58 PM [employer] [facility] Blood BLOOD SPECIMEN / Unknown Line Draw / Unknown 09/22/2023 10:21 PM [employer] 09/22/2023 10:28 PM [employer] Narrative [facility] - 09/22/2023 10:58 PM [employer] See institution protocol. Data does not support the use of vancomycin peak concentration for efficacy. Soraya Malik MD LAB - CHEMISTRY ORDERABLES Performing Organization Address [facility]/ZIP Co de Phone Number [address] [address], [place] [phone] * CT ANGIO CHEST PULM EMBOLISM (09/22/2023 8:14 PM [employer]) Anatomical Region Laterality Modality Chest Computed Tomogra phy 09/22/2023 8:17 PM [employer] Impressions 09/23/2023 10:22 AM [employer] Impression: 1.Suboptimal evaluation of the pulmonary arteries given phase of contrast. However, within the limitations of this examination, there is suggestion of a small nonocclusive pulmonary embolus in a segmental/subsegmental right lower lobe pulmonary artery. 2.No evidence of acute right heart strain. 3.Otherwise, no acute pulmonary process. Updated findings verbally relayed to Dr. Malik by Dr. Hayward at 1019 on 09/23/2023. > Dictated by Kaye Teresa DO (residential remodeling subcontractor). I, LUDIVINA HAYWARD MD have personally reviewed and interpreted this examination/study. > Interpreting Provider: LUDIVINA HAYWARD MD on 09/23/2023 10:22 AM Narrative 09/23/2023 10:22 AM [employer] PROCEDURE: ??CT ANGIO CHEST PULM EMBOLISM, DATE/TIME OF EXAM: ??09/22/2023 8:16 PM, LOCATION ??[facility] INDICATION: R00.0: Tachycardia ADDITIONAL CLINICAL INFORMATION: Ordering Provider Reason For Exam: ??rule out PE as cause of tachycardia COMPARISON: None. TECHNIQUE: CT of the chest was performed following the uneventful administration of 75 mL of Isovue 370 intravenous contrast according to a pulmonary embolism protocol. Multiplanar reconstructions were created. Findings: Study Quality This examination for the diagnosis of pulmonary embolism is suboptimal. Pulmonary Arteries: Evaluation is limited secondary to phase of contrast and photon starvation. No central filling defects are identified. There is poor characterization of the segmental/subsegmental pulmonary arteries. However, there is an ill-defined filling defect within a right lower lobe segmental artery (series 5 image 151, series 7 image 243, series 8 image 269). A small partially occlusive pulmonary embolus may be present. Thoracic Vasculature: No vascular abnormality is present. Lower Neck and Axillae: Normal. Lungs: No pulmonary parenchymal or airway process is present. No suspicious pulmonary nodules are identified. No pleural fluid or pneumothorax is present. Heart and Pericardium: The cardiac chambers are normal in size. No pericardial fluid or thickening is present. Mediastinum and Naima: No enlarged lymph nodes are present. Bones and Chest Wall: Bone windows demonstrate no suspicious lytic or blastic lesions. The visible osseous structures are intact. Upper Abdomen: Prior cholecystectomy. Otherwise, the visible portions of the upper abdominal organs are normal. Procedure Note Ludivina Hayward MD - 09/23/2023 PROCEDURE: CT ANGIO CHEST PULM EMBOLISM, DATE/TIME OF EXAM: 48:16 PM, LOCATION [facility] INDICATION: R00.0: Tachycardia ADDITIONAL CLINICAL INFORMATION: Ordering Provider Reason For Exam: rule out PE as cause of tachycardia COMPARISON: None. TECHNIQUE: CT of the chest was performed following the uneventful administration of 75 mL of Isovue 370 intravenous contrast according toa pulmonary embolism protocol. Multiplanar reconstructions were created. Findings: Study Quality This examination for the diagnosis of pulmonary embolism is suboptimal. Pulmonary Arteries: Evaluation is limited secondary to phase of contrast and photonstarvation. No central filling defects are identified. There is poorcharacterization of the segmental/subsegmental pulmonary arteries. However, there is an ill-defined filling defect within a right lower lobe segmental artery (series 5 image 151, series 7 image 243, series 8 image 269). A small partially occlusive pulmonary embolus may be present. Thoracic Vasculature: No vascular abnormality is present. Lower Neck and Axillae: Normal. Lungs: No pulmonary parenchymal or airway process is present. No suspicious pulmonary nodules are identified. No pleural fluid or pneumothorax is present. Heart and Pericardium: The cardiac chambers are normal in size. No pericardial fluid orthickening is present. Mediastinum and Naima: No enlarged lymph nodes are present. Bones and Chest Wall: Bone windows demonstrate no suspicious lytic or blastic lesions. The visible osseous structures are intact. Upper Abdomen: Prior cholecystectomy. Otherwise, the visible portions of the upper abdominal organs are normal. Impression: 1.Suboptimal evaluation of the pulmonary arteries given phase ofcontrast. However, within the limitations of this examination, there is suggestionof a small nonocclusive pulmonary embolus in a segmental/subsegmental right lower lobe pulmonary artery. 2.No evidence of acute right heart strain. 3.Otherwise, no acute pulmonary process. Updated findings verbally relayed to Dr. Malik by Dr. Hayward at 1019 on 09/23/2023. > Dictated by Kaye Teresa DO (residential remodeling subcontractor). ILUDIVINA MD have personally reviewed and interpreted this examination/study. > Interpreting Provider: LUDIVINA HAYWARD MD on 09/23/2023 10:22 AM Soraya Malik MD CT ORDERABLES * MRSA DNA PCR (09/22/2023 6:22 PM [employer]) MRSA DNA by PCR Not detected Not detected 09/23/2023 12:36 AM [employer] [facility] Microbiology SPECIMEN FROM NASAL FOSSAE / Unknown Collection / Unknown 09/22/2023 6:22 PM [employer] 09/22/2023 6:42 PM [employer] Narrative [facility] - 09/23/2023 12:36 AM [employer] Methicillin-resistant Staphylococcus aureus (MRSA) DNA is not detected (presumed not colonized with MRSA). Soraya Malik MD LAB - MICROBIOL OGY ORDERABLES Performing Organization Address City/[facility]/ZIP Co de Phone Number [facility] [address] [place] [address], [facility] [phone] * LACTIC ACID BLOOD REFLEX TO REPEAT (09/22/2023 5:42 PM [employer]) Lactic Acid-Stat 0.6 <=2.0 mmol/L 09/22/2023 6:14 PM [employer] [facility] Blood BLOOD SPECIMEN / Unknown Venipuncture / Unknown 09/22/2023 5:42 PM [employer] 09/22/2023 5:53 PM [employer] Soraya Malik MD LAB - CHEMISTRY ORDERABLES [facility] [address] [place] [address], [place] [phone] * TRANSFUSE RED BLOOD CELL LEUKOREDUCED UNIT(S) (09/22/2023 1:10 AM [employer]) Soraya Malik MD NURSING - BLOOD PROD TRANSFUSION * TRANSFUSE PLATELET PHERESIS UNIT(S) (09/21/2023 6:15 AM [employer]) Genny Leigh MD NURSING - BLOOD PROD TRANSFUSION * TRANSFUSE RED BLOOD CELL LEUKOREDUCED UNIT(S) (09/20/2023 3:29 AM [employer]) Dominic Farah MD NURSING - BLOOD PROD TRANSFUSION * TRANSFUSE PLATELET PHERESIS UNIT(S) (09/18/2023 12:36 AM [employer]) Graham Beltran MD NURSING - BLOOD PROD TRANSFUSION * TRANSFUSE PLATELET PHERESIS UNIT(S) (09/15/2023 6:03 AM [employer]) Myah Roberts DO NURSING - BLOOD PROD TRANSFUSION * TRANSFUSE RED BLOOD CELL LEUKOREDUCED UNIT(S) (09/15/2023 6:03 AM [employer]) Graham Beltran MD NURSING - BLOOD PROD TRANSFUSION * XR ABDOMEN KUB (09/15/2023 5:37 AM [employer]) Anatomical Region Laterality Modality Abdomen Radiographic Ammy ging 09/16/2023 6:56 AM [employer] Impressions 09/17/2023 2:19 PM [employer] IMPRESSION: No gross radiographic evidence of acute intra-abdominal process, however examination is severely limited due to the patient's morbidly obese body habitus Report dictated by Ivy Corea Dr, MD (residential remodeling subcontractor). I, Raheem Cazares MD have personally reviewed and interpreted this examination/study. > Interpreting Provider: Raheem Cazares MD on 09/17/2023 2:19 PM Narrative 09/17/2023 2:19 PM [employer] PROCEDURE: ??XR ABDOMEN KUB, DATE/TIME OF EXAM: ??09/15/2023 5:38 AM, LOCATION [facility] INDICATION: R14.0: Bloating ADDITIONAL CLINICAL INFORMATION: Ordering Provider Reason For Exam: ??pain ? ileus Technologist Note: Additional: COMPARISON: None. FINDINGS: Examination severely limited due to the patient's morbidly obese body habitus. Surgical clips seen in the right upper quadrant presumably from prior cholecystectomy. 2 AP supine views of the abdomen demonstrates a mostly nonspecific bowel gas pattern with no obvious evidence of dilated small or large bowel loops within the limitations of the image quality. Procedure Note Raheem Cazares MD - 09/17/2023 PROCEDURE: XR ABDOMEN KUB, DATE/TIME OF EXAM: 09/15/2023 5:38 AM, LOCATION [facility] INDICATION: R14.0: Bloating ADDITIONAL CLINICAL INFORMATION: Ordering Provider Reason For Exam: pain ? ileus Technologist Note: Additional: COMPARISON: None. FINDINGS: Examination severely limited due to the patient's morbidly obese body habitus. Surgical clips seen in the right upper quadrant presumably from prior cholecystectomy. 2 AP supine views of the abdomen demonstrates a mostly nonspecific bowel gas pattern with no obvious evidence of dilated small or large bowelloops within the limitations of the image quality. IMPRESSION: No gross radiographic evidence of acute intra-abdominal process, however examination is severely limited due to the patient's morbidly obese body habitus Report dictated by Ivy Corea Dr, MD (residential remodeling subcontractor). I, Raheem Cazares MD have personally reviewed and interpreted this examination/study. > Interpreting Provider: Raheem Cazares MD on 09/17/2023 2:19 PM Graham Beltran MD DIAGNOSTIC IMAGING O RDERABLES * PTT [facility] (09/13/2023 8:52 PM [employer]) Only the most recent of10 resultswithin the time period is included. APTT 23.2 23.0 - 38.4 Seconds 09/13/2023 9:40 PM [employer] [facility] Comment:Suggested therapeuti c range for full dose I.V. unfractionated heparin therapy for venous thromboembolism is 71 to 109 seconds. Blood BLOOD SPECIMEN / Unknown Venipuncture / Unknown 09/13/2023 8:52 PM [employer] 09/13/2023 9:17 PM [employer] Myah Roberts DO LAB - COAGULATION OR DERABLES [facility] [address] [place] [address], [facility] [phone] * PT-INR [facility] (09/13/2023 8:52 PM [employer]) Only the most recent of10 resultswithin the time period is included. PT 13.1 12.1 - 14.8 Seconds 09/13/2023 9:40 PM [employer] [facility] INR 1.0 See Comment 09/13/2023 9:40 PM [facility] Comment:The suggested therap eutic range for standard coumadin (warfarin) therapy is an INR of 2.0-3.0. For high-risk patients (Mechanical Mitral Valve Prosthesis, etc.), the suggested prophylactic therapeutic range is an INR of 2.5-3.5. Blood BLOOD SPECIMEN / Unknown Venipuncture / Unknown 09/13/2023 8:52 PM [employer] 09/13/2023 9:17 PM [employer] Myah Roberts DO LAB - COAGULATION OR DERABLES [facility] [address] [place] [address], [facility] [phone] * (ABNORMAL) D-DIMER (09/13/2023 8:52 PM [employer]) Only the most recent of10 resultswithin the time period is included. D-Dimer Quantitative 2.22(H) <=0.50 mcg/mL FEU 09/13/2023 9:43 PM [facility] Comment: In the absence of clinical symptoms, a value less than or equal to 0.5 mcg/mL FEU significantly decreases the probability of PE/DVT (negative predictive value >95%). 1 mcg/mL FEU = 1 Fibrinogen Equivalent Unit (approximates 0.5 mcg/ml of D- Dimer). ?ISTH DIAGNOSTIC SCORING SYSTEM FOR DIC ?Score ?0 ? 1 ? 2 ?3 ?? Platelet Count(x10^3/uL) ?> 100 ?? < 100 ?? < 50 ?N/A PT Prolongation above ? upper limit of normal ?0-3 ? 3-6 ? > 6 ?N/A range (seconds) ? Fibrinogen (mg/dL) ?> 100 ?? < 100 ?N/A ?N/A D-Dimer (mcg/mL FEU) ? < 0.50 ?N/A ? 0.50-5.0 ??> 5 Calculate Cumulative Score: > or = 5 :compatible with overt DIC ? < 5 :suggestive for non-overt DIC N/A = Non applicable Reference: Br. J. Haematol. 145:24-33,2009. Blood BLOOD SPECIMEN / Unknown Venipuncture / Unknown 09/13/2023 8:52 PM [employer] 09/13/2023 9:17 PM [employer] Myah Roberts DO LAB - COAGULATION OR DERABLES Performing Organization Address City/[facility]/ZIP Co de Phone Number [facility] [address] [place] [address], [place] [phone] * (ABNORMAL) RETIC COUNT (09/13/2023 8:52 PM [employer]) Only the most recent of10 resultswithin the time period is included. Reticulocyte Percent 0.43(L) 0.50 - 2.40 % 09/13/2023 11:29 PM [facility] Reticulocyte Absolute 0.0098(L) 0.0200 - 0.1100 x10E6/uL 09/13/2023 11:29 PM [facility] Ret-HE 35.7 29.0 - 37.9 pg 09/13/2023 11:29 PM [facility] Immature Reticulocyte Fraction 0.8(L) 1.8 - 15.2 % 09/13/2023 11:29 PM [facility] Blood BLOOD SPECIMEN / Unknown Venipuncture / Unknown 09/13/2023 8:52 PM [employer] 09/13/2023 9:18 PM [employer] Myah Roberts DO LAB - HEMATOLOGY ORD ERABLES Performing Organization Address City/[facility]/ZIP Co de Phone Number [facility] [address] [place] [address], [place] [phone] * (ABNORMAL) HAPTOGLOBIN (09/13/2023 8:52 PM [employer]) Only the most recent of10 resultswithin the time period is included. Haptoglobin 271(H) 14 - 258 mg/dL 09/13/2023 9:46 PM [employer] [facility] Comment:Result obtained by jose de jesus ashby. Blood BLOOD SPECIMEN / Unknown Venipuncture / Unknown 09/13/2023 8:52 PM [employer] 09/13/2023 9:07 PM [employer]AL [employer] Myah Roberts DO LAB - CHEMISTRY MANJULAE ELYSIA [facility] [address] [place] [address], [facility] [phone] * TRANSFUSE RED BLOOD CELL LEUKOREDUCED UNIT(S) (09/09/2023 6:41 AM [employer]) Jamel Silverio MD NURSING - BLOOD PROD TRANSFUSION * BLOOD TYPE VERIFICATION (09/09/2023 12:58 AM [employer]) ABO Rh O POS 09/09/2023 1:5 8 AM [employer]KER [facility] Blood Bank BLOOD SPECIMEN / Unknown Venipuncture / Unknown 09/09/2023 12:58 AM [employer]KER 09/09/2023 1:54 AM [employer] Maria C Downing MD LAB - BLOOD BANK ORD ERABLES Performing Organization Address City/[facility]/ZIP Co de Phone Number [facility] [address] [place] [address], [facility] [phone] * CYTOMEGALOVIRUS ANTIBODY IGG BLOOD (09/06/2023 9:43 PM [employer]) Only the most recent of2 resultswithin the time period is included. Cytomegalovirus Antibody IgG 0.26 <=0.70 U/mL 09/09/2023 1:32 PM METAL [employer] ([facility]) Comment: INTERPRETIVE INFORMATION: Cytomegalovirus Antibody, IgG ??0.59 U/mL or less......... Not Detected ??0.6 - 0.69 U/mL........... Indeterminate-Repeat testing in ? 10-14 days may be helpful. ??0.70 U/mL or greater...... Detected In immunocompromised patients, CMV serology (IgG or IgM antibody titers) may not be reliable and may be misleading in the diagnosis of acute or reactivation CMV disease. The preferred method for diagnosis is culture of virus and/or demonstration of viral antigen in peripheral white cells (buffy coat), bronchoalveolar lavage (BAL) cells, or tissue biopsies. This test should not be used for blood donor screening, associated re-entry protocols, or for screening Human Cell, Tissues and Cellular and Tissue-Based Products (HCT/P). The best evidence for current infection is a significant change on two appropriately timed specimens, where both tests are done in the same laboratory at the same time. Performed By: [facility] [address] [place] [address] Transition Program Manager: Ebenezer Shipman MD, PhD CLIA Number: [id number] Blood BLOOD SPECIMEN / Unknown Venipuncture / Unknown 09/06/2023 9:43 PM [employer] 09/06/2023 10:26 PM [employer]KER Cheryl Cronin MD LAB - CHEMISTRY [facility] ([facility]) [address] [place] [address], [facility] * HLA TYPING LOW/HIGH RESOLUTION DPB1 (09/06/2023 5:15 PM METAL [employer]KER) Typ DNA LR DPB1 Allele #1 *03 09/20/2023 9:47 AM METAL [employer] PIPE MAKER [facility] ([facility]) Typ DNA LR DPB1 Allele #2 *04 09/20/2023 9:47 AM METAL [employer] PIPE MAKER [facility] ([facility]) Typ DNA HR DPB1 Allele #1 *03:01:01G 09/20/2023 9:47 AM MET[employer]IPE MAKER [facility] ([facility]) Typ DNA HR DPB1 Allele #2 *04:01:01G 09/20/2023 9:47 AM METAL [employer] PIPE MAKER [facility] ([facility]) Test Methodology RTPCR/NGS 09/20/19 9:47 AM METAL [employer]IPE MAKER [facility] ([facility]) Date Results Entered [id number] 09/20/2023 9:47 AM [facility] ([facility]) Comment: This test was developed and its performance characteristics determined by the [facility]. ??It has not been cleared or approved by the U.S. Food and Drug Administration. ??The FDA has determined that such clearance or approval is not necessary. ??This test is used for clinical purposes. ??It should not be regarded as investigational or for research. This laboratory is certified under the Clinical Laboratory Improvement Amendments of 1988 (CLIA-88) as qualified to perform high complexity clinical laboratory testing. Performed at: [facility], [address] [place] [address] ??[phone] New Car Salesperson:Dr. Virgil Mabry, PhD, Blood BLOOD SPECIMEN / Unknown Venipuncture / Unknown 09/06/2023 5:15 PM [employer]AL [employer]KER 09/06/2023 5:22 PM [employer]AL [employer]IPE [employer]KER Cheryl Cronin MD LAB - BLOOD BANK ORD ERABLES [facility] ([facility]) [address] [place] [id number] [place] [address] * CYTOMEGALOVIRUS (CMV) QUANTITATIVE PLASMA (09/06/2023 5:15 PM METAL [employer]KER) Only the most recent of2 resultswithin the time period is included. CMV Quant by PCR, Interp Not detected Not detected 09/09/2023 9:42 AM METAL [employer]GAN PIPE MAKER [facility] Blood BLOOD SPECIMEN / Unknown Lab Venipuncture / Unknown 09/06/2023 5:15 PM METAL [employer] PIPE MAKER 09/06/2023 6:45 PM METAL [employer] PIPE MAKER Narrative [facility] - 09/09/2023 9:42 AM METAL [employer] PIPE MAKER The CMV DNA analysis utilized real-time PCR, and is reported as Not Detected, Detected (< 30 IU/mL) [or Detected (< 1.48 log IU/mL)], Detected (30 - 100,000,000 IU/mL) [or Detected 1.48 to 8.00 log IU/mL)], or Detected (> 100,000,000 IU/mL) [or Detected (> 8.00 log IU/mL)]. The analytical sensitivity (LOD) of the assay is 30.00 IU/mL [1.48 log IU/mL], (100% of samples with this CMV/DNA level were detected). Linear range of the assay is 30 - 100,000,000 IU/mL [or 1.48 to 8.00 log IU/mL]. The detection/quantitation of CMV DNA is plasma is based on the isolation of CMV DNA followed by real-time PCR in the presence of reference standard DNA. The standard ensures that DNA was isolated, and that no general significant inhibitors of the real-time PCR process were present. Absolute CMV values or breakpoints for symptomatic disease have not been established and appear to be different between populations and laboratories. Therefore, it is important to monitor patients and to follow increases and/or decreases in the level of CMV in multiple blood specimens. The analysis was performed using an [place] FDA approved test methodology. Cheryl Cronin MD LAB - CHEMISTRY [facility] [address] [place] [address], [facility] [phone] * HLA TYPING DNA LOW RESOLUTION DR,DQ (09/06/2023 5:15 PM METAL ORGAN PIPE MAKER) DR DQ Low Resolution DRB1-1 *04 09/20/2023 9:47 AM METAL [employer]GAN PIPE MAKER [facility] ([facility]) DR DQ Low Resolution DRB1-2 *07 09/20/2023 9:47 AM METAL [employer] PIPE MAKER [facility] ([facility]) DR DQ Low Resolution DQB1-1 *03 09/20/2023 9:47 AM METAL ORGAN PIPE MAKER [facility] ([facility]) DR DQ Low Resolution DRB3-1 Negative 09/20/2023 9:47 AM METAL ORGAN PIPE MAKER [facility] ([facility]) DR DQ Low Resolution DRB3-2 Negative 09/20/2023 9:47 AM METAL ORGAN PIPE MAKER [facility] ([facility]) DR DQ Low Resolution DRB4-1 *01 09/20/2023 9:47 AM METAL ORGAN PIPE MAKER [facility] ([facility]) DR DQ Low Resolution DRB4-2 *01:03N 09/20/2023 9:47 AM METAL [employer] PIPE MAKER [facility] ([facility]) DR DQ Low Resolution DRB5-1 Negative 09/20/2023 9:47 AM METAL ORGAN PIPE MAKER [facility] ([facility]) DR DQ Low Resolution DRB5-2 Negative 09/20/2023 9:47 AM METAL [employer]GAN PIPE MAKER [facility] ([facility]) DR DQ Low Resolution Methodology Real Time PCR 09/20/2023 9:47 AM METAL ORGAN PIPE MAKER [facility] ([facility]) DR DQ Low Resolution test date [id number] 09/20/2023 9:47 AM METAL ORGAN PIPE MAKER [facility] ([facility]) Comment: This test was developed and its performance characteristics determined by the [facility]. ??It has not been cleared or approved by the U.S. Food and Drug Administration. ??The FDA has determined that such clearance or approval is not necessary. ??This test is used for clinical purposes. ??It should not be regarded as investigational or for research. This laboratory is certified under the Clinical Laboratory Improvement Amendments of 1988 (CLIA-88) as qualified to perform high complexity clinical laboratory testing. ??CLIA ID# [id number] Performed at: [facility], [address] [place] [address] ??[phone] New Car Salesperson:Dr. Virgil Mabry, PhD, Blood BLOOD SPECIMEN / Unknown Venipuncture / Unknown 09/06/2023 5:15 PM METAL [employer] PIPE MAKER 09/06/2023 5:22 PM METAL [employer] PIPE MAKER Cheryl Cronin MD LAB - BLOOD BANK ORD ERABLES [facility] ([facility]) [address] [place] [address], [facility] * HLA TYPING DNA LOW RESOLUTION A,B,C (09/06/2023 5:15 PM METAL [employer] PIPE MAKER) ABC DNA A1 *02 09/20/2023 9:47 AM METAL [employer]GAN PIPE MAKER [facility] ([facility]) ABC DNA A2 *03 09/20/2023 9:47 AM METAL [employer]GAN PIPE MAKER [facility] ([facility]) ABC DNA B1 *44 09/20/2023 9:47 AM METAL [employer]GAN PIPE MAKER [facility] ([facility]) ABC DNA B2 *57 09/20/2023 9:47 AM METAL [employer]GAN PIPE MAKER [facility] ([facility]) ABC DNA BW1 4 09/20/2023 9:47 AM METAL [employer]GAN PIPE MAKER [facility] ([facility]) ABC DNA BW2 4 09/20/2023 9:47 AM METAL [employer]GAN PIPE MAKER [facility] ([facility]) ABC DNA C1 *05 09/20/2023 9:47 AM METAL ORGAN PIPE MAKER [facility] ([facility]) ABC DNA C2 *06 09/20/2023 9:47 AM [facility] ([facility]) ABC DNA Methodology Real Time PCR 09/20/2023 9:47 AM [facility] [facility]) ABC DNA Test Date [id number] 02/2024 9:47 AM [facility] ([facility]) Comment: This test was developed and its performance characteristics determined by the [facility]. ??It has not been cleared or approved by the U.S. Food and Drug Administration. ??The FDA has determined that such clearance or approval is not necessary. ??This test is used for clinical purposes. ??It should not be regarded as investigational or for research. This laboratory is certified under the Clinical Laboratory Improvement Amendments of 1988 (CLIA-88) as qualified to perform high complexity clinical laboratory testing. ??CLIA ID# [id number] Performed at: [facility], [address] [place] [address] ??[phone] New Car Salesperson:Dr. Virgil Mabry, PhD, Blood BLOOD SPECIMEN / Unknown Venipuncture / Unknown 09/06/2023 5:15 PM [employer]AL [employer] PIPE [employer]KER 09/06/2023 5:22 PM [employer]IPE MAKER Cheryl Cronin MD LAB - BLOOD BANK ORD ERABLES [facility] ([facility]) [address] * HLA TYPING DNA HIGH RESOLUTION DR (09/06/2023 5:15 PM METAL [employer]GAN PIPE MAKER) DR Locus DRB1-1 *04:01 9:47 AM [facility] ([facility]) DR DQ Low Resolution DRB1-2 *07:01 09/20/2023 9:47 AM [facility] ([facility]) DR Locus Test Method NGS 09/20/2023 9:47 AM METAL [employer] PIPE [employer]KER [facility] ([facility]) DR Locus Test Date [id number] 9:47 AM [facility] ([facility]) Comment: This test was developed and its performance characteristics determined by the [facility]. ??It has not been cleared or approved by the U.S. Food and Drug Administration. ??The FDA has determined that such clearance or approval is not necessary. ??This test is used for clinical purposes. ??It should not be regarded as investigational or for research. This laboratory is certified under the Clinical Laboratory Improvement Amendments of 1988 (CLIA-88) as qualified to perform high complexity clinical laboratory testing. ??CLIA ID# [id number] Performed at: [facility], [address] [place] [address] ??[phone] New Car Salesperson:Dr. Virgil Mabry, PhD, Blood BLOOD SPECIMEN / Unknown Venipuncture / Unknown 09/06/2023 5:15 PM [employer] 09/06/2023 5:22 PM [employer]IPE MAKER Cheryl Cronin MD LAB - BLOOD BANK ORD ERABLES [facility] ([facility]) [address] [place], [place] [address] * HLA TYPING DNA HIGH RESOLUTION DQ (09/06/2023 5:15 PM METAL [employer] PIPE MAKER) DR DQ Low Resolution DQB1-1 *03:01 09/20/2023 9:47 AM [facility] ([facility]) DR DQ Low Resolution DQB1-2 *03:03 09/20/2023 9:47 AM [facility] ([facility]) DQ Locus Methodology NGS 09/20/2023 9:47 AM [facility] ([facility]) DQ Locus Test Date [id number] 9:47 AM [facility] ([facility]) Comment: This test was developed and its performance characteristics determined by the [facility]. ??It has not been cleared or approved by the U.S. Food and Drug Administration. ??The FDA has determined that such clearance or approval is not necessary. ??This test is used for clinical purposes. ??It should not be regarded as investigational or for research. This laboratory is certified under the Clinical Laboratory Improvement Amendments of 1988 (CLIA-88) as qualified to perform high complexity clinical laboratory testing. ??CLIA ID# [id number] Performed at: [facility], [address] [place], [place] ??[phone] New Car Salesperson:Dr. Virgil Mabry, PhD, Blood BLOOD SPECIMEN / Unknown Venipuncture / Unknown 09/06/2023 5:15 PM [employer]KER 09/06/2023 5:22 PM [employer] MAKER Cheryl Cronin MD LAB - BLOOD BANK ORD ERABLES [facility] ([facility]) [address] [place] [address], [facility] * HLA TYPING DNA HIGH RESOLUTION B (09/06/2023 5:15 PM [employer]) HLA B Locus B-1 *44:02 4 9:47 AM [employer] [facility] ([facility]) HLA B Locus Bw-1 4 09/20/19 24 9:47 AM [employer] [facility] ([facility]) HLA B Locus B-2 *57:01 4 9:47 AM [employer] [facility] ([facility]) HLA B Locus Bw-2 4 09/20/19 24 9:47 AM [employer] [facility] ([facility]) HLA B Locus Methodology NGS 09/20/2023 9:47 AM [employer] [facility] ([facility]) HLA B Locus Test Date [id number] 09/20/2023 9:47 AM [employer] [facility] ([facility]) Comment: This test was developed and its performance characteristics determined by the [facility]. ??It has not been cleared or approved by the U.S. Food and Drug Administration. ??The FDA has determined that such clearance or approval is not necessary. ??This test is used for clinical purposes. ??It should not be regarded as investigational or for research. This laboratory is certified under the Clinical Laboratory Improvement Amendments of 1988 (CLIA-88) as qualified to perform high complexity clinical laboratory testing. ??CLIA ID# [id number] Performed at: [facility], [address] [place] [address] ??[phone] New Car Salesperson:Dr. Virgil Mabry, PhD, Blood BLOOD SPECIMEN / Unknown Venipuncture / Unknown 09/06/2023 5:15 PM [employer]IPE MAKER 09/06/2023 5:22 PM [employer]AL [employer]IPE MAKER Cheryl Cronin MD LAB - BLOOD BANK ORD ERABLES [facility] ([facility]) [address] [place] [address] * HLA TYPING DNA HIGH RESOLUTION A (09/06/2023 5:15 PM MET[employer]) A Locus HR A1 *02:01 09/20/2023 9:47 AM [employer] [facility] ([facility]) A Locus HR A2 *03:01 09/20/2023 9:47 AM [employer]IPE [employer]KER [facility] ([facility]) A Locus HR Methodology NGS 09/20/2023 9:47 AM MET[employer] PIPE [employer]KER [facility] ([facility]) A Locus Test Date [id number] 02/2024 9:47 AM [employer] [facility] ([facility]) Comment: This test was developed and its performance characteristics determined by the [facility]. ??It has not been cleared or approved by the U.S. Food and Drug Administration. ??The FDA has determined that such clearance or approval is not necessary. ??This test is used for clinical purposes. ??It should not be regarded as investigational or for research. This laboratory is certified under the Clinical Laboratory Improvement Amendments of 1988 (CLIA-88) as qualified to perform high complexity clinical laboratory testing. ??CLIA ID# [id number] Performed at: [facility], [address] [place] [address] ??[phone] New Car Salesperson:Dr. Virgil Mabry, PhD, Blood BLOOD SPECIMEN / Unknown Venipuncture / Unknown 09/06/2023 5:15 PM METAL [employer] PIPE MAKER 09/06/2023 5:22 PM METAL [employer] PIPE MAKER Cheryl Cronin MD LAB - BLOOD BANK ORD ERABLES [facility] ([facility]) [address] * HLA TYPING DNA HIGH RESOLUTION C (09/06/2023 5:15 PM [employer]KER) C Locus C1 *05:01 09/20/2023 9:47 AM [employer]KER [facility] ([facility]) C Locus C2 *06:02 09/20/2023 9:47 AM [employer]IPE [employer]KER [facility] ([facility]) Test Method NGS 09/20/2023 9:47 AM [employer]IPE [employer]KER [facility] ([facility]) C Locus Test Date [id number] 02/2024 9:47 AM [employer] [facility] ([facility]) Comment: This test was developed and its performance characteristics determined by the [facility]. ??It has not been cleared or approved by the U.S. Food and Drug Administration. ??The FDA has determined that such clearance or approval is not necessary. ??This test is used for clinical purposes. ??It should not be regarded as investigational or for research. This laboratory is certified under the Clinical Laboratory Improvement Amendments of 1988 (CLIA-88) as qualified to perform high complexity clinical laboratory testing. ??CLIA ID# [id number] Performed at: [facility], [address] [place] [address] ??[phone] New Car Salesperson:Dr. Virgil Mabry, PhD, Blood BLOOD SPECIMEN / Unknown Venipuncture / Unknown 09/06/2023 5:15 PM METAL [employer] PIPE MAKER 09/06/2023 5:22 PM METAL [employer] PIPE MAKER Cheryl Cronin MD LAB - BLOOD BANK ORD ERABLES Performing Organization Address [facility]/ZIP Co de Phone Number [facility] ([facility]) [address] * IR CENTRAL LINE INSERT TUNNEL (09/05/2023 1:50 PM METAL [employer] PIPE MAKER) Anatomical Region Laterality Modality Chest, Upper Extremity X-Ray Ang iography 09/05/2023 2:07 PM METAL [employer] PIPE MAKER Impressions 09/05/2023 2:10 PM METAL [employer] PIPE MAKER IMPRESSION: Successful Right internal jugular tunneled central venous catheter placement. > Interpreting Provider: Maria G Mortensen MD on 09/05/2023 2:10 PM Narrative 09/05/2023 2:10 PM METAL [employer] PIPE MAKER PROCEDURE: ??IR CENTRAL LINE INSERT TUNNEL DATE/TIME OF EXAM: ??09/05/2023 1:57 PM CLINICAL INFORMATION: None relevant/not provided if blank. 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 FLUOROSCOPY DOSE: mGy Reference air kerma (ka,r). Ferryboat Operator Helper:Maria G Mortensen MD Publications Inspector:Jakub Eller MD MEDICATIONS: None. ?? Contrast: None Complications: None immediate Findings and Technique: Following informed consent, the patient was taken to the angiography suite and placed on the fluoroscopy table. The skin of the Right neck and chest was prepared with chlorhexidine and sterile drapes were applied. Limited ultrasound of the (Right) lower neck demonstrated a patent and compressible internal jugular vein. A mejia scale image was documented and saved to the PACS. Under real time ultrasound guidance, using a micropuncture needle, the (Right) internal jugular vein was accessed. The needle entry was documented and an image was saved to the PACS. A microfilament wire was advanced to the central veins under fluoroscopic guidance. This allowed the placement of a 5 Iranian sheath which in turn allowed the placement of a 0.035 guidewire which was manipulated into the IVC. An exit site was chosen on the chest wall and anesthetized with lidocaine. Using a metal tunneling device, a 12F 19 cm Tri-fusion Barone access catheter was brought through a subcutaneous tunnel to the venotomy incision and prepared for insertion. Dilatation was performed to create a track to the jugular vein sufficient to accommodate a peel-away sheath which was inserted over the guidewire and the inner stylet was removed. The catheter was inserted through the sheath which was then removed. The catheter was adjusted for length under fluoroscopy such that the tip was at the junction of the SVC and RA. Lumens flushed easily and were locked with Heparin. ??The catheter was sutured in place with 3-0 Vicryl at exit site and fixed to the chest wall with a Stat-Lock device and a CHG dressing was placed. The venotomy incision was closed with a 3-0 Vicryl suture. Moderate sedation on this adult patient was ordered by me, administered intravenously in my presence, and monitored by the procedure nurse as an independent trained observer who was present throughout the procedure. The following parameters were monitored: oxygen saturation, heart rate, blood pressure, and response to care. Intra-service sedation start time was 1325 and end time was 1353 during which I was present. Total physician intra-service sedation time was 28 minutes. For details on pre-moderate sedation and post-moderate sedation patient evaluation, please review the evaluation forms in [facility]. For details on monitored clinical parameters during the intra-service sedation time, please review the procedure nurse documentation in [facility]. I was present for the Entire procedure Procedure Note Maria G Mortensen MD - 09/05/2023 PROCEDURE: IR CENTRAL LINE INSERT TUNNEL DATE/TIME OF EXAM: 09/05/2023 1:57 PM CLINICAL INFORMATION: None relevant/not provided if blank. 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 FLUOROSCOPY DOSE: mGy Reference air kerma (ka,r). Ferryboat Operator Helper:Maria G Mortensen MD Publications Inspector:Jakub Eller MD MEDICATIONS: None. Contrast: None Complications: None immediate Findings and Technique: Following informed consent, the patient was taken to the angiographysuite and placed on the fluoroscopy table. The skin of the Right neck andchest was prepared with chlorhexidine and sterile drapes were applied. Limited ultrasound of the (Right) lower neck demonstrated a patent andcompressible internal jugular vein. A mejia scale image was documented and saved tothe PACS. Under real time ultrasound guidance, using a micropuncture needle, the (Right) internal jugular vein was accessed. The needle entry was documented and an image was saved to the PACS. A microfilament wire was advanced to the central veins under fluoroscopic guidance. This allowedthe placement of a 5 Iranian sheath which in turn allowed the placement of a 0.035 guidewire which was manipulated into the IVC. An exit site waschosen on the chest wall and anesthetized with lidocaine. Using a metaltunneling device, a 12F 19 cm Tri-fusion Barone access catheter was broughtthrough a subcutaneous tunnel to the venotomy incision and prepared forinsertion. Dilatation was performed to create a track to the jugular veinsufficient to accommodate a peel-away sheath which was inserted over the guidewireand the inner stylet was removed. The catheter was inserted through thesheath which was then removed. The catheter was adjusted for length under fluoroscopy such that the tip was at the junction of the SVC and RA.Lumens flushed easily and were locked with Heparin. The catheter was suturedin place with 3-0 Vicryl at exit site and fixed to the chest wall with a Stat-Lock device and a CHG dressing was placed. The venotomy incisionwas closed with a 3-0 Vicryl suture. Moderate sedation on this adult patient was ordered by me, administered intravenously in my presence, and monitored by the procedure nurse as an independent trained observer who was present throughout the procedure.The following parameters were monitored: oxygen saturation, heart rate,blood pressure, and response to care. Intra-service sedation start time [id number] and end time was 1353 during which I was present. Total physician intra-service sedation time was 28 minutes. For details on pre-moderate sedation and post-moderate sedation patient evaluation, please reviewthe evaluation forms in [facility]. For details on monitored clinical parameters during the intra-service sedation time, please review the procedurenurse documentation in [facility]. I was present for the Entire procedure IMPRESSION: Successful Right internal jugular tunneled central venous catheter placement. > Interpreting Provider: Maria G Mortensen MD on 09/05/2023 2:10 PM Cheryl Cronin MD IR ORDERABLES * HEPATITIS C AB SCREEN RFLX NAAT QUANT (09/04/2023 5:20 AM METAL [employer]GAN PIPE MAKER) Hepatitis C Antibody Non-react easton Non-reac tive 09/04/2023 6:58 AM METAL [employer]GAN PIPE MAKER [facility] Comment:Hepatitis C Antibody screen indicates no serologic evidence of past or current infection with Hepatitis C Virus. Patients with unexplained liver disease who are immunocompromised or suspected of having acute Hepatitis C infection may benefit from Nucleic Acid Test (PRADIP) for Hepatitis C Viral RNA to confirm Hepatitis C status. Blood BLOOD SPECIMEN / Unknown Lab Venipuncture / Unknown 09/04/2023 5:20 AM METAL ORGAN PIPE MAKER 09/04/2023 6:05 AM METAL [employer]GAN PIPE MAKER Graham Beltran MD LAB - CHEMISTRY JON NAIDU Performing Organization Address [facility] Co de Phone Number [facility] [address] [place] [phone], [facility] [phone] * HIV-1 HIV-2 ANTIBODY + HIV P24 AG PANEL (09/04/2023 5:20 AM METAL ORGAN PIPE MAKER) Pathologist [facility] HIV Antigen/Antibod y 1 & 2 Non-reacti ve Non-react easton 09/04/2023 6:59 AM METAL [employer]GAN PIPE MAKER [facility] Comment:No Laboratory eviden ce of HIV infection. Blood BLOOD SPECIMEN / Unknown Lab Venipuncture / Unknown 09/04/2023 5:20 AM METAL ORGAN PIPE MAKER 09/04/2023 6:05 AM METAL ORGAN PIPE MAKER Graham Beltran MD LAB - CHEMISTRY JON NAIDU Performing Organization Address [facility] Co de Phone Number [address] [address], [facility] [phone] * MARTHA-GHOTRA VIRUS ANTIBODY TO VCA IGM (09/04/2023 5:20 AM METAL ORGAN PIPE MAKER) Pathologist [facility] Martha-Ghotra Virus Antibody IgM Viral Capsid Antigen <10.0 0.0 - 43.9 U/mL 09/05/2023 2:29 PM METAL ORGAN PIPE MAKER [facility] ([facility]) Comment: INTERPRETIVE INFORMATION: Martha-Ghotra Virus Antibody to ?Viral Capsid Antigen, IgM ??35.9 U/mL or less.......Not Detected ?36.0-43.9 U/mL..........Indeterminate - Repeat testing in ?10-14 days may be helpful. ??44.0 U/mL or greater....Detected Performed By: [facility] [address] [place] [address] Transition Program Manager: Ebenezer Shipman MD, PhD CLIA Number: [id number] Blood BLOOD SPECIMEN / Unknown Lab Venipuncture / Unknown 09/04/2023 5:20 AM METAL ORGAN PIPE MAKER 09/04/2023 6:05 AM METAL ORGAN PIPE MAKER Graham Beltran MD LAB - SEROLOGY ORDER SOL [facility] ([facility]) [address] [place], [place] [address] * (ABNORMAL) HEPATITIS B PANEL (09/04/2023 5:20 AM METAL ORGAN PIPE MAKER) [facility] Hepatitis B Virus Surface Antibody Reactive(A ) Non-react easton 09/04/2023 7:08 AM METAL ORGAN PIPE MAKER [facility] Comment: > 12 mIU/mL Hepatitis B surface Antibody (HBsAb). Reactive for HBsAb - individual is considered immune to Hepatitis B Virus infection. Hepatitis B Virus Surface Antigen Non-reacti ve Non-react easton 09/04/2023 7:08 AM METAL ORGAN PIPE MAKER [facility] Hepatitis B Core Virus Antibody IgM Non-reacti ve Non-react easton 09/04/2023 7:08 AM METAL ORGAN PIPE MAKER [facility] Blood BLOOD SPECIMEN / Unknown Lab Venipuncture / Unknown 09/04/2023 5:20 AM METAL ORGAN PIPE MAKER 09/04/2023 6:05 AM METAL ORGAN PIPE MAKER Graham Beltran MD LAB - CHEMISTRY ORDE RABQI [facility] [address] [place] [address], [facility] [phone] * MARTHA-GHOTRA VIRUS QUANT BLOOD STL (09/04/2023 5:19 AM METAL ORGAN PIPE MAKER) [facility] EBV Quant by PCR, Interp Not detected Not detected 09/04/2023 3:06 PM METAL ORGAN PIPE MAKER [facility] Specimen Type Plasma 09/04/2023 3:06 PM METAL ORGAN PIPE MAKER [facility] Blood BLOOD SPECIMEN / Unknown Lab Venipuncture / Unknown 09/04/2023 5:19 AM METAL ORGAN PIPE MAKER 09/04/2023 6:05 AM METAL ORGAN PIPE MAKER Narrative [facility] - 09/04/2023 3:06 PM METAL ORGAN PIPE MAKER DNA isolated from the plasma was analyzed in a qPCR assay to detect and quantify Martha-Ghotra DNA. An internal control is included to evaluate for PCR inhibition. The quantitative range of this assay is 500 IU/mL to 5,000,000 IU/mL. Values below 500 IU/mL will be reported as Detected (<500 IU/mL). ?? This test was developed and its performance characteristics determined by [facility]. ??It has not been cleared or approved by the U.S. Food and Drug Administration. ??The FDA has determined that such clearance or approval is not necessary. ??The test is used for clinical purposes. ??It should not be regarded as investigational or for research. ??This laboratory is certified under the Clinical Laboratory Improvement Amendments of 1988(CLIA-88) as qualified to perform high complexity clinical laboratory testing. Graham Beltran MD LAB - CHEMISTRY JON NAIDU [facility] [address] [place], [place] [address], [facility] [phone] Care Teams Money Counter Relationship Specialty Start Date End Date Osmar Ragland MD [address] [place] [address] PCP - General Family Medicine 04/19/24
--- OUTSIDE RECORDS SUMMARY | 2024-08-31 21:25 | XMS_ITS | Encounter Summary ---
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 No 01/19/2024 Sex and Gender Information Value Date Recorded Sex Assigned at Not on file Gender Identity Female 02/13/2024 1:12 PM CDT Sexual Orientation Not on file documented as of this encounter Functional Status Functional Status Response Date of [...] person have difficulty concentrating/remembering/making decisions? No 03/03/2024 documented as of this encounter Plan of Treatment Upcoming Encounters Date Type Department Care Team (Late st Contact Info) Description 10/27/2024 10:30 AM WEL[employer]E [employer] HOSTESS Appointment [facility] [address] [place] [address] Hussain Carias MD [address] [place] [phone] Britni Winston, PA-C [address] [place], [place] [id number] 11/17/2024 9:00 AM WELCOME [employer] HOSTESS Office Visit [facility] - Ophthalmology [address] [place] [address], [place] [phone] Song Hobson MD [address] [place] [address] [place] [address] Pending Results Name Type Priority Associated Diagnoses Date /Time RETINAL ANALYSIS OCT Ophthalmology Routine Papilledema associated with increased intracranial pressure 04/19/2024 9:31 AM CDT documented as of this encounter Visit Diagnoses Diagnosis Papilledema associated with increased intracranial pressure- Primary documented in this encounter Care Teams Plant Etiologist Relationship Specialty Start Date End Date Osmar Ragland MD [address] [place] [phone] PCP - General Family Medicine 04/19/24 documented as of this encounter
--- OUTSIDE RECORDS SUMMARY | 2024-08-31 21:25 | XMS_ITS | Encounter Summary ---
Author Organization [facility] Address [address] [place] [id number] Care Team Providers Care Single Corner Cutter Name Role Phone Osmar Ragland MD Primary Care Provider [phone] Encounter Details Date Type Department Care Team (Latest Contact Info) Description 04/30/2024 11:59 PM CDT Hospital Encounter [facility] [address] [place] [address] Hussain Carias MD [address] [place] [address] Britni Winston, PABaronC [address] [place] [address] Discharge Disposition: Home or Self Care Social History Tobacco Use Types Packs/Day Years Used Date Smoking Tobacco: Former Cigarettes 1 2 2010 Smokeless Tobacco: Never Alcohol Use Standard [...] Recorded Patient Health Questionnaire-2 Score 0 03/03/2024 [facility] of Occupat ional Health - Occupational Stress [...] place to sleep or slept in a nursing home (including now)? No 01/19/2024 Sex and Gender Information Value Date Recorded Sex Assigned at Not on file Gender Identity Female 02/13/2024 1:12 PM CDT Sexual Orientation Not on file documented as of this encounter Last Filed Vital Signs Vital Sign Reading Time Taken Comments Blood Pressure 132/74 04/30/2024 10:32 AM CDT Pulse 96 04/30/2024 10:32 AM CDT Temperature 36.4 ??C (97.5 ??F) 04/30/2024 10:32 AM C DT Respiratory Rate 18 04/30/2024 10:32 AM CDT Oxygen Saturation 100% 04/30/2024 10:32 AM CDT Inhaled Oxygen Concentration - - Weight 109.8 kg (242 lb) 04/30/2024 10:32 AM CDT Height - - Body Mass Index 44.26 03/03/2024 2:04 PM CDT documented in this encounter Functional Status Functional Status Response [...] No 03/03/2024 documented as of this encounter Medications at Time of Discharge Medication Sig Dispensed Refills Start Date End Date Carboxymethylcellulos e Sodium (ARTIFICIAL TEARS OP) famotidine (Pepcid) 20 MG tabletIndications:Ton sillitis Take 1 (one) tablet by mouth 2 times daily 60 tablet 1 10/17/2023 multivitamin daily tablet Take 1 (one) tablet by mouth daily with food Womans multivitamin acetaZOLAMIDE (Diamox) 250 MG tablet Take 1 (one) tablet by mouth 2 times daily 60 tablet 03/05/2024 08/23/2024 ciprofloxacin (Cipro) 750 MG tablet TAKE ONE TABLET BY MOUTH EVERY 12 HOURS FOR 6 DAYS 12 tablet 01/23/2024 06/25/2024 dilTIAZem (Cardizem) injection APPLY TO AFFECTED AREA 2 TIMES A DAY 100 mL 1 01/23/2024 06/25/2024 ibuprofen (Motrin) 800 MG tablet TAKE 1 TABLET (800 MG) BY ORAL ROUTE 3 TIMES PER DAY WITH FOOD FOR 4 DAYS 04/02/2024 06/25/2024 medroxyPROGESTERone (Provera) 5 MG tablet Take 2 (two) tablets by mouth once daily 05/20/2024 metroNIDAZOLE (Flagyl) 500 MG tablet TAKE ONE TABLET BY MOUTH EVERY 8 HOURS FOR 6 DAYS 18 tablet 01/23/2024 06/25/2024 polyethylene glycol 3350 (Miralax) 17 g packet Take by mouth once daily 06/25/2024 posaconazole (Noxafil) 100 MG tabletIndications:Acu te myeloid leukemia in remission (HCC) Take 3 (three) tablets by mouth daily with dinner 90 tablet 5 12/15/2023 05/20/2024 sennosides (Senokot) 8.6 MG tablet TAKE ONE TABLET BY MOUTH ONCE DAILY NEEDED FOR CONSTIPATION 30 tablet 01/23/2024 06/25/2024 valACYclovir (Valtrex) 500 MG tabletIndications:Acu te myeloid leukemia in remission (HCC) Take 1 (one) tablet by mouth 2 times daily 60 tablet 11 11/03/2023 08/23/2024 documented as of this encounter Progress Notes * Britni Winston PA-C - 04/30/2024 8:50 AM CDT Images from the original note were not included. 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 Originally in August of 2023 was admitted to [facility] c/o flu like symptoms and ultimately had marrow biopsy revealing 78% blasts on marrow and flow cytometry confirmed NPM1 mutation. Was sent to [facility] for AML. Completed 7 + 3 induction, cou nt recovery BMBx on 09/1723 confirmed remission. Has completed 2 consolidation therapies. 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 All have been worked up both in the inpatient and outpatient setting, well controlled on current medication regimen. Interval History: Pt presents for lab check and clinic visit. Pt states she is feeling well. She denies complaints. Denies fevers, chills, nausea, vomiting, diarrhea, or constipation. Pt continues to se Dr. Griffin for menorrhagia. She is still having maroon- colored vaginal bleeding, but it is now only when she wipes and not on her pad. She wears pads, but there is no active bleeding onto the pad. She was prescribed Provera 10mg PO QD for this. Also continues f/u with gynecology for ovarian mass. VSS Review of Systems: Review of Systems Constitutional: Negative for chills, fever, malaise/fatigue and weight loss. HENT: Negative for congestion and sore throat. Eyes: Negative for blurred vision, double vision and pain. Respiratory: Negative for cough and shortness of breath. Cardiovascular: Negative for chest pain. Gastrointestinal: Negative for abdominal pain, blood in stool, constipation, diarrhea, melena, nausea and vomiting. Genitourinary: Negative for dysuria, frequency, hematuria and urgency. + for vaginal bleeding Musculoskeletal: Negative for back pain and myalgias. Skin: Negative for rash. Neurological: Negative for dizziness, tingling and headaches. Past Medical & Surgical History None / Negative Past Oncology History Oncology History Acute myeloid leukemia in remission (HCC) 09/03/2023 Initial Diagnosis 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 ([facility]-H[facility]) 09/06/2023 - Chemotherapy cytarabine (Cytosar) 460 mg in 0.9% NaCl IV 534.6 mL infusion, 200 mg/m2 = 460 mg, Intravenous, ONCE, 1 of 1 cycle Administration: 460 mg (09/06/2023), 460 mg (09/07/2023), 460 mg (09/08/2023), 460 mg (09/09/2023),460 mg (09/10/2023), 460 mg (09/11/2023), 460 mg (09/12/2023) rasburicase (Elitek) 3 mg in 0.9% NaCl IV 50 mL bolus, 3 mg, Intravenous, PRN, 1 of 1 cycle IDArubicin (Idamycin) injection 27 mg, 12 mg/m2 = 27 mg, Intravenous, ONCE, 1 of 1 cycle Administration: 27 mg (09/06/2023), 27 mg (09/07/2023), 27 mg (09/08/2023) cytarabine (Cytosar) 6,700 mg in 0.9% NaCl IV 597 mL infusion, 3,000 mg/m2 = 6,700 mg, Intravenous,EVERY 12 HOURS, 4 of 4 cycles Administration: 6,700 mg (10/04/2023), 6,700 mg (10/04/2023), 6,700 mg (10/06/2023), 6,700 mg (10/06/2023), 6,700 mg (11/03/2023), 6,700 mg (10/08/2023), 6,700 mg (10/08/2023), 6,700 mg (11/05/2023), 6,700 mg (11/05/2023), 6,700 mg (12/01/2023), 6,700 mg (12/03/2023), 6,700 mg (12/03/2023), 6,700 mg (12/05/2023), 6,700 mg (12/05/2023), 6,700 mg (12/30/2023), 6,700 mg (11/07/2023), 6,700 mg (11/07/2023), 6,700 mg (11/03/2023), 6,700 mg (12/01/2023), 6,700 mg (12/30/2023) C1 7+3 Induction 09/06/23 C1 HiDAC 10/04/23 10/01/2023 Remission Molecular remission CR1, negative MRD by flow and NPM1 negative by PCR in the bone marrow 10/03/2023 Adverse Reaction Leukemic infiltrate vs IIH as a cause of increased ICP will treat empirically with stable to improving disc edema on exam-- to prevent vision loss. 10/04/2023 - Chemotherapy C1D1 HiDAC 12/30/2023 - Chemotherapy C4D1 HiDAC (final anticipated cycle) Active Treatment Days for Sarah Mckeon (until 05/01/2024) There are no remaining days before 05/01/2024. Medications SCHEDULED MEDICATIONS: Current Outpatient Medications Medication Sig acetaZOLAMIDE (Diamox) 250 MG tablet Take 1 (one) tablet by mouth 2 times daily Carboxymethylcellulose Sodium (ARTIFICIAL TEARS OP) famotidine (Pepcid) 20 MG tablet Take 1 (one) tablet by mouth 2 times daily medroxyPROGESTERone (Provera) 5 MG tablet Take 2 (two) tablets by mouth once daily multivitamin daily tablet Take 1 (one) tablet by mouth daily with food Womans multivitamin polyethylene glycol 3350 (Miralax) 17 g packet Take by mouth once daily posaconazole (Noxafil) 100 MG tablet Take 3 (three) tablets by mouth daily with dinner (Patient nottaking: Reported on 04/30/2024) valACYclovir (Valtrex) 500 MG tablet Take 1 (one) tablet by mouth 2 times daily No current facility-administered medications for this encounter. Allergies Allergies Allergen Reactions Vancomycin Itching OBJECTIVE Physical Exam Vitals: 04/30/24 1032 BP: 132/74 Pulse: 96 Resp: 18 Temp: 97.5 ??F SpO2: 100% Weight: 109.8 kg (242 lb) Wt Readings from Last 3 Encounters: 04/30/24 109.8 kg (242 lb) 03/31/24 107.2 kg (236 lb 6.4 oz) 03/03/24 111.6 kg (246 lb) Karnofsky/ECO/0 General appearance - well-appearing, and in no distress Mental status - alert, oriented to person, place, and time Mouth - moist mucous membranes, no lesions to oropharynx seen on exam Chest - clear to auscultation b/l, no wheezes, rales or rhonchi, symmetric air entry Heart - normal rate, regular rhythm, no murmurs Abdomen - soft, nontender, nondistended, bowel sounds present Extremities - no pedal edema, no clubbing or cyanosis Skin - normal coloration and turgor, no rashes noted Laboratory Results Recent Labs Component Name 04/30/24 1019 03/31/24 1122 03/22/24 1004 WBC 5.7 5.6 5.9 RBC 3.62* 3.09* 3.29* HGB 12.6 10.4* 11.1* HCT 37.6 31.0* 32.8* MCV 103.9* 100.3* 99.7* MCHC 33.5 33.5 33.8 PLTCOUNT 86* 51* 44* NEUTPCT 66.4 73.8 73.3 LYMPHPCT 19.8 15.8* 15.8* NEUTABS 3.79 4.11 4.32 LYMPHABS 1.13 0.88* 0.93* BASOABS 0.01 0.01 0.01 Recent Labs Component Name 04/30/24 1019 03/31/24 1122 03/22/24 1004 POTASSIUM 3.8 3.7 3.7 CO2 18* 16* 18* BUN 16 9 9 CREATININE 0.67 0.68 0.84 EGFR >90 >90 >90 GLUCOSE 130* 177* 103 CALCIUM 9.4 9.4 9.8 MAGNESIUM 2.1 2.1 2.2 PHOS 2.8* 2.1* 3.9 ALT 12 20 16 AST 12 25 18 ALKPHOS 94 81 87 Recent Labs Component Name 04/30/24 1019 03/31/24 1122 03/22/24 1004 MAGNESIUM 2.1 2.1 2.2 Recent Labs Component Name 04/30/24 1019 03/31/24 1122 03/22/24 1004 PHOS 2.8* 2.1* 3.9 Pathology Results RVP (12/19/23): negative Radiology Results UE/LE dopplers (01/16/24): No evidence of deep or superficial thrombosis in the visualized veins of the bilateral upper extremities by this exam No evidence of deep or superficial thrombosis in the visualized veins of the bilateral upper extremities by this exam CT abd/pelvis with contrast (01/16/24): 1.Central filling defect within a segmental branch [...] calcified foci which may represent a teratoma. CT Head w/o contrast (01/01/24): No acute intracranial process. CXR (12/19/23): Right IJ approach tunneled central venous catheter that terminates at the superior cavoatrial junction. Minimal interstitial prominence in the lung bases, substantially decreased from 09/28/2023. Findings could be field marketing representative of small airways disease. Otherwise, no confluent consolidation, pleural effusion, or pneumothorax. Heart size is normal. Superior mediastinal contours are within normal limits. No acute osseous abnormality. US left upper extremity (nonvascular) (12/17/23): Within the region of interest along the left axilla, there is a small tract to the skin without sonographic evidence of a loculated fluid collection orabscess. The surrounding subcutaneous fat is echogenic and hyperemic, consistent with cellulitis. 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 1. 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 Eye exam improved and pt received artificial tears w/ dexamethasone eye drops. Eye symptoms thought to be more related to retinal hemorrhage than leukemic infiltration. - S/p intrathecal MTX 10/06/23 - Count recovery marrow from 10/01/2023 shows CR, MRD flow negative, and NPM1 is negative by PCR. She is in molecular remission from AML standpoint. Plan is to complete 4 cycles of HiDAC consolidation. No more IT treatment planned. - 04/30/24 labs reviewed. Hgb up trending, but platelets continue to be stable/low. Obtained nutrition labs 03/31. NPM1 PCR labs pending. 2. Thrombocytopenia - Unclear etiology, could be 2/2 HiDAC chemotherapy but would have expected recovery of platelets by now. - Also complicated by menstrual bleeding. - Nutritional labs 03/31 WNL. 3. Menorrhagia - Follows with her local [employer], Dr. Griffin. - Continues on Provera 10mg PO QD. 4. Hx of elevated ICP, papilledema - Symptom onset during admission, 10/07/23. LP at the time revealed elevated impending pressure, butmeningitis w/u was unrevealing. - Concerns for IIH previously. - H/o Multilayered retinal Hemorrhages in both eyes - Sx resolved as of 10/2023. - Diamox restarted 02/2024 per ophthalmology; pt has [facility] neuro-ophtho appt scheduled 09/2024. 5. Ovarian mass, r/o teratoma - Incidental finding on 01/15 CT scan: 2.8 x 3.0 cm heterogenous mass within the left ovary containing areas of fat density and multiple calcified foci, will refer to gynecology. Discussed this with pton 01/28/24 (UPT neg 01/28/24). - F/u with [facility] [employer] [facility]; most recent note plans for TVUS ~late March 2024. 6. Metabolic acidosis - present on labs 03/31, likely 2/2 to diamox - Will CTM - Pt has f/u with [facility] neuro-ophthalmology scheduled 09/2024. PLAN: - Labs reviewed. Platelets continue to be lower than expected, but rising overall. WBC/Hgb now WNL. - Plan to stop valtrex 6 months s/p chemo; ~07/2024. - Continue to f/u with [employer] regarding menorrhagia, ovarian mass. - Continue to f/u with ophthalmology for for papilledema/Diamox monitoring. DISPOSITION: RTC on 06/25 for basics, NPM1 lab, and ABEL visit The total time spent today in the visit with the patient, performing chart preparation, review of data, and documentation, not related to any procedure or preventative visit services was 28 minutes. Britni Winston PA-C Blood & Marrow Transplant [facility] documented in this encounter Plan of Treatment Upcoming Encounters Date Type Department Care Team (Late Contact Info) Description 10/27/2024 10:30 AM SITE SAFETY REPRESENTATIVE Appointment [facility] B[facility] CL[facility]IC [address] [place] [address] Hussain Carias MD [address] [place] [id number] Britni Winston PA-C [address] [place] [address] 11/17/2024 9:00 AM SITE SAFETY REPRESENTATIVE Office Visit [facility] - Ophthalmology [address] [place] [phone] Song Hobson MD [address] [place] [address] [place] [phone] documented as of this encounter Procedures Procedure Name Priority Date/Time Associated Diagnosis Comments NPM1 MUTATION DETECTION PCR Routine 04/30/2024 10:19 AM CDT Acute myeloid leukemia in remission (HCC) CBC W AUTO DIFFERENTIAL Routine 04/30/2024 10:19 AM CDT Acute myeloid leukemia in remission (HCC) COMPREHENSIVE METABOLIC PANEL Routine 04/30/2024 10:19 AM CDT Acute myeloid leukemia in remission (HCC) PHOSPHORUS BLOOD Routine 04/30/2024 10:1 9 AM CDT Acute myeloid leukemia in remission (HCC) MAGNESIUM BLOOD Routine 04/30/2024 10:19 AM CDT Acute myeloid leukemia in remission (HCC) documented in this encounter Results * (ABNORMAL) PHOSPHORUS BLOOD (04/30/2024 10:19 AM CDT) Phosphorus 2.8(L) 2.9 - 5.1 mg/dL 04/30/2024 10:58 AM CDT [facility] Blood BLOOD SPECIMEN / Unknown Venipuncture / Unknown 04/30/2024 10:19 AM CDT 04/30/2024 10:25 AM CDT [facility] - CHEMI STRY ORDERABLES [facility] [address] [place] [phone], [facility] [phone] * MAGNESIUM BLOOD (04/30/2024 10:19 AM CDT) Magnesium 2.1 1.6 - 2.6 mg/dL 04/30/2024 10:58 AM CDT [facility] Blood BLOOD SPECIMEN / Unknown Venipuncture / Unknown 04/30/2024 10:19 AM CDT 04/30/2024 10:25 AM CDT [facility] - CHEMI STRY ORDERABLES [facility] [address] [place] [address], [facility] [phone] * (ABNORMAL) COMPREHENSIVE METABOLIC PANEL (04/30/2024 10:19 AM CDT) BUN 16 7 - 26 mg/dL 04/30/2024 10:58 AM [facility] Creatinine 0.67 0.56 - 0.96 mg/dL 04/30/2024 10:58 AM [facility] Sodium 141 136 - 145 mmol/L 04/30/2024 10:58 AM [facility] Potassium 3.8 3.5 - 4.5 mmol/L 04/30/2024 10:58 AM [facility] Chloride 117(H) 98 - 107 mmol/L 04/30/2024 10:58 AM [facility] CO2 18(L) 22 - 29 mmol/L 04/30/2024 10:58 AM [facility] Glucose 130(H) 70 - 115 mg/dL 04/30/2024 10:58 AM [facility] Calcium 9.4 8.4 - 10.2 mg/dL 04/30/2024 10:58 AM [facility] Protein Total 7.3 6.0 - 8.3 g/dL 04/30/2024 10:58 AM [facility] Albumin 4.1 3.4 - 5.0 g/dL 04/30/2024 10:58 AM [facility] Bilirubin Total 0.2 0.2 - 1.2 mg/dL 04/30/2024 10:58 AM [facility] Alkaline Phosphatase 94 40 - 150 U/L 04/30/2024 10:58 AM [facility] ALT 12 5 - 55 U/L 04/30/2024 10:58 AM [facility] AST 12 5 - 34 U/L 04/30/2024 10:58 AM [facility] Anion Gap 6 6 - 16 04/30/2024 10:58 AM [facility] BUN/Creatinine Ratio 24(H) 7 - 23 04/30/2024 10:58 AM [facility] Osmolality Calculated 295 275 - 295 mOsm/kg 04/30/2024 10:58 AM [facility] Albumin/Globulin Ratio 1.3 1.1 - 2.3 04/30/2024 10:58 AM [facility] eGFR by CKD-EPI >90 >=90 mL/min/1.7 3 m2 04/30/2024 10:58 AM [facility] Blood BLOOD SPECIMEN / Unknown Venipuncture / Unknown 04/30/2024 10:19 AM CDT 04/30/2024 10:25 AM [facility] [place] [facility] [employer] - CHEMI STRY ORDERABLES [address] [address], [facility] [phone] * (ABNORMAL) CBC WITH DIFFERENTIAL (04/30/2024 10:19 AM [facility]) WBC 5.7 4.0 - 10.7 x10E9/L 04/30/2024 10:42 AM [facility] RBC Count 3.62(L) 3.90 - 5.20 x10E12/L 04/30/2024 10:42 AM [facility] Hemoglobin 12.6 11.9 - 15.8 g/dL 04/30/2024 10:42 AM [facility] Hematocrit 37.6 34.8 - 46.1 % 04/30/2024 10:42 AM [facility] MCV 103.9(H) 80.0 - 98.0 fL 04/30/2024 10:42 AM [facility] MCH 34.8(H) 26.7 - 33.6 pg 04/30/2024 10:42 AM [facility] MCHC 33.5 31.7 - 36.3 g/dL 04/30/2024 10:42 AM [facility] RDW-CV 14.3 11.3 - 14.8 % 04/30/2024 10:42 AM [facility] Platelet Count 86(L) 150 - 420 x10E9/L 04/30/2024 10:42 AM [facility] MPV 10.8 7.8 - 11.4 fL 04/30/2024 10:42 AM [facility] Preliminary Absolute Neutrophil 3.79 1.60 - 7.50 x10E9/L 04/30/2024 10:42 AM [facility] Comment:Preliminary ANC pend ing manual confirmation Neutrophil % 66.4 41.0 - 74.0 % 04/30/2024 10:42 AM [facility] Lymphocyte % 19.8 17.0 - 47.0 % 04/30/2024 10:42 AM [facility] Monocyte % 12.5(H) 3.0 - 11.0 % 04/30/2024 10:42 AM [facility] Eosinophil % 0.9 0.0 - 7.0 % 04/30/2024 10:42 AM [facility] Basophil % 0.2 0.0 - 1.6 % 04/30/2024 10:42 AM [facility] Immature Granulocytes % 0.2 0.0 - 1.0 % 04/30/2024 10:42 AM [facility] Neutrophil Absolute 3.79 1.60 - 7.50 x10E9/L 04/30/2024 10:42 AM [facility] Lymphocyte Absolute 1.13 1.00 - 4.40 x10E9/L 04/30/2024 10:42 AM [facility] Monocyte Absolute 0.71 0.15 - 1.00 x10E9/L 04/30/2024 10:42 AM [facility] Eosinophil Absolute 0.05 0.00 - 0.60 x10E9/L 04/30/2024 10:42 AM [facility] Basophil Absolute 0.01 0.00 - 0.13 x10E9/L 04/30/2024 10:42 AM [facility] Blood BLOOD SPECIMEN / Unknown Venipuncture / Unknown 04/30/2024 10:19 AM CDT 04/30/2024 10:25 AM CDT [facility] - HEMAT OLOGY ORDERABLES [facility] [address] [place] [address], [facility] [phone] * NPM1 MUTATION DETECTION PCR (04/30/2024 10:19 AM CDT) [facility] NPM1 Source Whole Blood 05/05/2024 11:21 AM CDT [employer] ([facility]) NPM1 Result Not Detected 05/05/2024 11:21 AM CDT [facility] [employer] ([facility]) Comment: A NPM1 (type A, B, or D) mutation was not detected. This result has been reviewed and approved by Jodi Skinner M.D. INTERPRETIVE INFORMATION: NPM1 Mutation Detection ?by RT-PCR, [...] developed and its performance characteristics determined by [email or web address]. It has not been cleared or approved by the [place] Food and Drug Administration. This test was performed in a CLIA certified laboratory and is intended for clinical purposes. NPM1 Ratio 0.0000 05/05/2024 11:21 AM CDT [facility] [facility]) Comment: Performed By: [email or web address] [address] [place] [address] Serging Machine Operator: Ebenezer Shipman MD, PhD CLIA Number: [id number] BLOOD SPECIMEN / Unknown 04/30/2024 10:19 AM CDT 04/30/2024 10:23 AM CDT Britni Winston PA-C LAB - CHEMISTRY JON NAIDU [facility] [facility]) [address] [place] [address], [facility] documented in this encounter Visit Diagnoses Diagnosis 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 documented in this encounter Care Teams Single Corner Cutter Relationship Specialty Start Date End Date Osmar Ragland MD [address] [place] [address] PCP - General Family Medicine 04/19/24 documented as of this encounter
--- OUTSIDE RECORDS SUMMARY | 2024-08-31 21:25 | XMS_ITS | Encounter Summary ---
Author Organization [facility] Address [address] [place], [place] [address] [address] Care Team Providers Care Industrial Roofer Name Role Phone Osmar Ragland MD Primary Care Provider [phone] Encounter Details Date Type Department Care Team (Latest Contact Info) Description 06/25/2024 10:33 AM CDT - 06/25/2024 12:34 PM T Hospital Encounter [facility] [address] [place] [address] Hussain Carias MD [address] [place] [address] Rossana Jay, ZACH-BOILER COVERER [address] [place] [address] Discharge Disposition: Home or Self Care Social History Tobacco Use Types Packs/Day Years Used Date Smoking Tobacco: Former Cigarettes 1 6 2 005 - 2010 Smokeless Tobacco: Never Alcohol Use [...] Recorded Patient Health Questionnaire-2 Score 0 03/03/2024 [facility] [place] of Occupat ional Health - Occupational Stress [...] place to sleep or slept in a care home (including now)? No 01/19/2024 Sex and Gender Information Value Date Recorded Sex Assigned at Not on file Gender Identity Female 02/13/2024 1:12 PM CDT Sexual Orientation Not on file documented as of this encounter Last Filed Vital Signs Vital Sign Reading Time Taken Comments Blood Pressure 132/86 06/25/2024 11:35 AM CDT Pulse 85 06/25/2024 11:35 AM CDT Temperature 36.4 ??C (97.5 ??F) 06/25/2024 1 1:35 AM CDT Respiratory Rate 18 06/25/2024 11:3 5 AM CDT Oxygen Saturation 100% 06/25/2024 11: 35 AM CDT Inhaled Oxygen Concentration - - Weight 115.5 kg (254 lb 9.6 oz) 11:35 AM CDT Height - - Body Mass Index 46.57 03/03/2024 2:04 PM CDT documented in this [...] 2 times daily 60 tablet 1 10/17/2023 folic acid (Folvite) 1 MG tablet Take 1 (one) tablet by mouth once daily 90 tablet 06/01/2024 multivitamin daily tablet Take 1 (one) tablet by mouth daily with food Womans multivitamin acetaZOLAMIDE (Diamox) 250 MG tablet Take 1 (one) tablet by mouth 2 times daily 60 tablet 03/05/2024 08/23/2024 valACYclovir (Valtrex) 500 MG tabletIndications:Acu te myeloid leukemia in remission (HCC) Take 1 (one) tablet by mouth 2 times daily 60 tablet 11 11/03/2023 08/23/2024 documented as of this encounter Progress Notes * Rossana Jay APRN-CHU - 06/25/2024 12:00 PM CDT Images from the original note were not included. HEMATOLOGY/ONCOLOGY INPATIENT PROGRESS NOTE Name: Sarah Mckeon Age: [age] year old Date of : 1985 Date of Service: 06/28/2024 Reason for Consult: AML HEMATOLOGY & ONCOLOGY HISTORY Principal Diagnosis: AML Current Therapy: C3D21 HiDAC consolidation SUBJECTIVE History of Present Illness Chief Complaint: Post discharge follow up visit C3 D6 HiDAC History of Present Illness: Sarah Mckeon is a 39 year old female with favorable risk AML, NPM-1 mutation in complete remissionpresenting for C3 of HiDAC consolidation therapy. Originally in August of 2023 was admitted to [facility] c/o flu like symptoms and ultimately had marrow biopsy revealing 78% blasts on marrow and flow cytometry confirmed NPM1 mutation. Was sent to [facility] for AML. Completed 7 + 3 induction, cou nt recovery BMBx on 09/1723 confirmed remission. Has completed 2 consolidation therapies. 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 All have been worked up both in the inpatient and outpatient setting, well controlled on current medication regimen. Interval History: - Mora presents to clinic ambulatory for routine labs and visit. - Denies any fever, chills, nausea, vomiting, diarrhea or constipation. - No dizziness, lightheadedness, SOB, cough or any URI symptoms reported. - No oral/throat pain or lesions. - No skin rashes or lesions. - Appetite is good. Weight is stable. - Complains of pain to right knee, has been ongoing for about the month, pain progressively worsensas the day goes on and she moves around more, wearing brace to knee and using a cane to walk for support. Denies any trauma or falls, no swelling or erythema to the site. - Follows up with OBGYN for menorrhagia and ovarian mass. Review of Systems: Review of Systems Constitutional: [...] Negative for dysuria, frequency, hematuria and urgency. Musculoskeletal: Positive for joint pain. Negative for back pain and myalgias. R knee pain Skin: Negative for rash. Neurological: Negative for dizziness, tingling and headaches. Past Medical & Surgical History None / Negative Past Oncology History Oncology History Acute myeloid leukemia in remission (HCC) 09/03/2023 Initial Diagnosis 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 ([facility]-H[facility]) 09/06/2023 - Chemotherapy cytarabine (Cytosar) 460 mg [...] Active Treatment Days for Sarah Mckeon (until 06/29/2024) There are no remaining days before 06/29/2024. Medications SCHEDULED MEDICATIONS: Current Outpatient Medications Medication Sig acetaZOLAMIDE (Diamox) 250 MG tablet Take 1 (one) tablet by mouth 2 times daily Carboxymethylcellulose Sodium (ARTIFICIAL TEARS OP) famotidine (Pepcid) 20 MG tablet Take 1 (one) tablet by mouth 2 times daily folic acid (Folvite) 1 MG tablet Take 1 (one) tablet by mouth once daily multivitamin daily tablet Take 1 (one) tablet by mouth daily with food Womans multivitamin valACYclovir (Valtrex) 500 MG tablet Take 1 (one) tablet by mouth 2 times daily No current facility-administered medications for this encounter. Allergies Allergies Allergen Reactions Vancomycin Itching OBJECTIVE Physical Exam Vitals: 06/25/24 1135 BP: 132/86 Pulse: 85 Resp: 18 Temp: 97.5 ??F SpO2: 100% Weight: 115.5 kg (254 lb 9.6 oz) Wt Readings from Last 3 Encounters: 06/25/24 115.5 kg (254 lb 9.6 oz) 04/30/24 109.8 kg (242 lb) 03/31/24 107.2 kg (236 lb 6.4 oz) Karnofsky/ECO/0 Physical Examination: General appearance - alert, well appearing, and in no distress Mental status - alert, oriented to person, place, and time Chest - clear to auscultation, no wheezes, rales or rhonchi, symmetric air entry Heart - normal rate, regular rhythm, normal S1, S2, no murmurs, rubs, clicks or gallops Abdomen - soft, nontender, nondistended, no masses or organomegaly Extremities - peripheral pulses normal, no pedal edema, no clubbing or cyanosis Skin - normal coloration and turgor, no rashes, no suspicious skin lesions noted CVC - site without erythema or tenderness, dressing is intact Laboratory Results Recent Labs Component Name 06/25/24111804/30/24101803/31/24 1122 WBC 5.4 5.7 5.6 RBC 4.29 3.62* 3.09* HGB 14.1 12.6 10.4* HCT 40.8 37.6 31.0* MCV 95.1 103.9* 100.3* MCHC 34.6 33.5 33.5 PLTCOUNT 134* 86* 51* NEUTPCT 69.8 66.4 73.8 LYMPHPCT 18.5 19.8 15.8* NEUTABS 3.77 3.79 4.11 LYMPHABS 1.00 1.13 0.88* BASOABS 0.01 0.01 0.01 Recent Labs Component Name 06/25/24111804/30/24101803/31/24 1122 POTASSIUM 3.5 3.8 3.7 CO2 20* 18* 16* BUN 14 16 9 CREATININE 0.67 0.67 0.68 EGFR >90 >90 >90 GLUCOSE 148* 130* 177* CALCIUM 9.4 9.4 9.4 MAGNESIUM 2.2 2.1 2.1 PHOS 2.8* 2.8* 2.1* ALT 14 12 20 AST 15 12 25 ALKPHOS 93 94 81 Recent Labs Component Name 06/25/24111804/30/24101803/31/24 1122 MAGNESIUM 2.2 2.1 2.1 Recent Labs Component Name 06/25/24111804/30/24101803/31/24 1122 PHOS 2.8* 2.8* 2.1* Pathology Results RVP (12/19/23): negative Radiology Results [...] decreased from 09/28/2023. Findings could be field sales representative of small airways disease. Otherwise, no [...] with cellulitis. ASSESSMENT Sarah Mckeon is a 39 year old female with favorable risk AML, NPM-1 mutation, presenting for C3 ofHiDAC therapy, today is D6C3. 1. 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 Menorrhagia - Follows with her local [facility], Dr. Griffin. - Continues on Provera 10mg PO QD. 4. Hx of elevated ICP, papilledema - Symptom onset during admission, 10/07/23. LP at the time revealed elevated impending pressure, butmeningitis w/u was unrevealing. - Concerns for IIH previously. - H/o Multilayered retinal Hemorrhages in both eyes - Sx resolved as of 10/2023. - Diamox restarted 02/2024 per ophthalmology; pt has [facility] neuro-ophtho appt scheduled 09/2024. 5. Ovarian mass, r/o teratoma - Incidental finding on 01/15 CT scan: 2.8 x 3.0 cm heterogenous mass within the left ovary containing areas of fat density and multiple calcified foci, will refer to gynecology. Discussed this with pton 01/28/24 (UPT neg 01/28/24). - F/u with [facility]; most recent note plans for TVUS ~late March 2024. 6. Metabolic acidosis - present on labs 03/31, likely 2/2 to diamox - Will CTM - Pt has f/u with [facility] neuro-ophthalmology scheduled 09/2024. PLAN: - Labs reviewed. Normal WBC, Hgb and ANC. Platelets low but continues to improve. - Plan to stop valtrex 6 months s/p chemo; ~07/2024. - Continue to f/u with [facility] regarding menorrhagia, ovarian mass. - Continue to f/u with ophthalmology for for papilledema/Diamox monitoring. - She completed her chemotherapy for AML in November 2023 and remains in CR. Follow NPM1 PCR sent today (06/25). - XR right knee obtained due to c/o pain- no acute findings, no effusion, fracture or concerns for arthritis or degenerative changes. Mora has been advised to follow up with PCP regarding her knee pain. DISPOSITION: RTC on 08/23 for basics, NPM1 lab, and ABEL visit The total time spent today in the visit with the patient, performing chart preparation, review of data, and documentation, not related to any procedure or preventative visit services was 28 minutes. MACI Marie- Blood and Marrow Transplant [facility] documented in this encounter Plan of Treatment Upcoming Encounters Date Type Department Care Team (Late st Contact Info) Description 10/27/2024 10:30 AM RAISIN SEPARATOR OPERATOR Appointment [facility] [address] [place] [address] Hussain Carias MD [address] [place] [phone] Britni Winston, PA-C [address] [place] [address] 11/17/2024 9:00 AM RAISIN SEPARATOR OPERATOR Office Visit [facility] - Ophthalmology [address] [place] [phone] Song Hobson MD [address] [place] [address] [place] [id number] Scheduled Orders Name Type Priority Associated Diagnoses Orde r Schedule NPM1 MUTATION DETECTION PCR Lab Routine AML (acute myeloid leukemia) in remission (HCC) 5 Occurrences starting 06/28/2024 until 07/29/2025 documented as of this encounter Procedures Procedure Name Priority Date/Time Associated Diagnosis Comments NPM1 MUTATION DETECTION PCR Routine 06/25/2024 11:19 AM CDT 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sion (HCC) URIC ACID BLOOD STAT 06/25/2024 11:19 AM CDT Acute myeloid leukemia in remission (HCC) TYPE + SCREEN PANEL STAT 06/25/2024 1 1:19 AM CDT Acute myeloid leukemia in remission (HCC) ERYTHROCYTE SEDIMENTATION RATE Routine 06/25/2024 11:19 AM CDT Acute pain of right knee CBC W AUTO DIFFERENTIAL STAT 06/25/2024 11:19 [...] (HCC) documented in this encounter Results * XR Knee Right 3Vw (06/25/2024 12:43 PM CDT) Anatomical Region Laterality Modality Lower Extremity Digital Radiogra phy 06/25/2024 3:49 PM CDT Impressions 06/28/2024 9:54 AM CDT IMPRESSION: No acute fracture or dislocation identified. Report dictated by Sivakumar Garrido DO (senior resident care director). I, Sergio Arango MD have personally reviewed and interpreted this examination/study. > Interpreting Provider: Sergio Arango MD on 06/28/2024 9:54 AM Narrative 06/28/2024 9:54 AM CDT PROCEDURE: ??XR KNEE RIGHT 3VW, DATE/TIME OF EXAM: ??06/25/2024 12:44 PM, LOCATION ??[facility] INDICATION: M25.561: Acute pain of right [...] DATE/TIME OF EXAM: 06/25/2024 12:44 PM, LOCATION [facility] INDICATION: M25.561: Acute pain of right [...] identified. Report dictated by Sivakumar Garrido DO (senior resident care director). I, Sergio Arango MD have personally reviewed and interpreted this examination/study. > Interpreting Provider: Sergio Arango MD on 06/28/2024 9:54 AM Rossana LOPE[facility] O RDERABLES * ERYTHROCYTE SEDIMENTATION RATE (06/25/2024 11:19 AM CDT) Erythrocyte Sedimentation Rate Westergren 17 0 - 20 MM/HR 06/25/2024 12:25 PM CDT [facility] Blood BLOOD SPECIMEN / Unknown Venipuncture / Unknown 06/25/2024 11:19 AM CDT 06/25/2024 11:32 AM CDT Rossana LOPEZ LAB - HEMATOLOGY ORD ERABLES [facility] [address] [address], [facility] [place] [phone] * NPM1 MUTATION DETECTION PCR (06/25/2024 11:19 AM CDT) Pathologist [facility] NPM1 Source Whole Blood 06/29/2024 5:35 PM CDT [facility] ([facility]) NPM1 Result Not Detected 06/29/2024 5:35 PM [facility] ([facility]) Comment: A NPM1 (type A, B, or D) mutation was not detected. This result has been reviewed and approved by Cuauhtemoc Garcia M.D. INTERPRETIVE INFORMATION: NPM1 Mutation Detection ?by [...] developed and its performance characteristics determined by [facility]. It has not been cleared or approved by the US Food and Drug Administration. This test was performed in a CLIA certified laboratory and is intended for clinical purposes. NPM1 Ratio 0.0000 06/29/2024 5:35 PM CDT [facility] ([facility]) Comment: Performed By: [facility] [address] [place] [address] Campaign Director: Ebenezer Shipman MD, PhD CLIA Number: [id number] BLOOD SPECIMEN / Unknown 06/25/2024 11:19 AM CDT 06/25/2024 11:31 AM CDT Rossana Jay APRN-CHU LAB - CHEMISTRY ORDE ELYSIA Performing Organization Address City/[facility]/ZIP Co de Phone Number [facility] [employer] [facility]) [address] [place] [address] * TYPE + SCREEN PANEL (06/25/2024 11:19 AM CDT) Antibody Screen NEG 12:16 PM CDT [facility] ABO Rh O POS 06/25/2024 12:16 PM CDT [facility] Blood Bank BLOOD SPECIMEN / Unknown Venipuncture / Unknown 06/25/2024 11:19 AM CDT 06/25/2024 11:35 AM CDT Britni Winston PA-C LAB - BLOOD BANK ORD ERAJANES [facility] [address] [place] [address], [facility] [place] [phone] * (ABNORMAL) URIC ACID BLOOD (06/25/2024 11:19 AM CDT) [facility] Uric Acid 6.5(H) 2.6 - 6.0 mg/dL 06/25/2024 11:56 AM CDT [facility] Blood BLOOD SPECIMEN / Unknown Venipuncture / Unknown 06/25/2024 11:19 AM CDT 06/25/2024 11:32 AM CDT Britni Winston PA-C LAB - CHEMISTRY JON NAIDU [facility] [address] [place] [address], [facility] [place] [phone] * LDH BLOOD (06/25/2024 11:19 AM CDT) [facility] LDH Total 182 125 - 243 Units/L 06/25/2024 11:56 AM CDT [facility] Blood BLOOD SPECIMEN / Unknown Venipuncture / Unknown 06/25/2024 11:19 AM CDT 06/25/2024 11:32 AM CDT Britni Winston PA-C LAB - CHEMISTRY JON NAIDU [facility] [address] [place] [address], [facility] [place] [phone] * (ABNORMAL) CBC W AUTO DIFFERENTIAL (06/25/2024 11:19 AM CDT) [facility] WBC 5.4 4.0 - 10.7 x10E9/L 06/25/2024 11:37 AM CDT [facility] RBC Count 4.29 3.90 - 5.20 x10E12/L 06/25/2024 11:37 AM CDT [facility] Hemoglobin 14.1 11.9 - 15.8 g/dL 06/25/2024 11:37 AM CDT [facility] Hematocrit 40.8 34.8 - 46.1 % 06/25/2024 11:37 AM [facility] MCV 95.1 80.0 - 98.0 fL 06/25/2024 11:37 AM [facility] MCH 32.9 26.7 - 33.6 pg 06/25/2024 11:37 AM [facility] MCHC 34.6 31.7 - 36.3 g/dL 06/25/2024 11:37 AM [facility] RDW-CV 11.9 11.3 - 14.8 % 06/25/2024 11:37 AM [facility] Platelet Count 134(L) 150 - 420 x10E9/L 06/25/2024 11:37 AM [facility] MPV 9.2 7.8 - 11.4 fL 06/25/2024 11:37 AM [facility] Preliminary Absolute Neutrophil 3.77 1.60 - 7.50 x10E9/L 06/25/2024 11:37 AM [facility] Neutrophil % 69.8 41.0 - 74.0 % 06/25/2024 11:37 AM [facility] Lymphocyte % 18.5 17.0 - 47.0 % 06/25/2024 11:37 AM [facility] Monocyte % 10.2 3.0 - 11.0 % 06/25/2024 11:37 AM [facility] Eosinophil % 0.9 0.0 - 7.0 % 06/25/2024 11:37 AM [facility] Basophil % 0.2 0.0 - 1.6 % 06/25/2024 11:37 AM [facility] Immature Granulocytes % 0.4 0.0 - 1.0 % 06/25/2024 11:37 AM [facility] Neutrophil Absolute 3.77 1.60 - 7.50 x10E9/L 06/25/2024 11:37 AM [facility] Lymphocyte Absolute 1.00 1.00 - 4.40 x10E9/L 06/25/2024 11:37 AM [facility] Monocyte Absolute 0.55 0.15 - 1.00 x10E9/L 06/25/2024 11:37 AM CDT [facility] Eosinophil Absolute 0.05 0.00 - 0.60 x10E9/L 06/25/2024 11:37 AM CDT [facility] Basophil Absolute 0.01 0.00 - 0.13 x10E9/L 06/25/2024 11:37 AM CDT [facility] Blood BLOOD SPECIMEN / Unknown Venipuncture / Unknown 06/25/2024 11:19 AM CDT 06/25/2024 11:32 AM CDT Britni Winston PA-C LAB - HEMATOLOGY ORD ERABLES [address] [address], [facility] [place] [phone] * MAGNESIUM BLOOD (06/25/2024 11:19 AM CDT) Magnesium 2.2 1.6 - 2.6 mg/dL 06/25/2024 11:56 AM CDT [facility] Blood BLOOD SPECIMEN / Unknown Venipuncture / Unknown 06/25/2024 11:19 AM CDT 06/25/2024 11:32 AM CDT Britni Winston PA-C LAB - CHEMISTRY ORDE RABQI [address] [address], [place] [phone] * (ABNORMAL) COMPREHENSIVE METABOLIC PANEL (06/25/2024 11:19 AM CDT) BUN 14 7 - 26 mg/dL 06/25/2024 11:56 AM CDT [facility] Creatinine 0.67 0.56 - 0.96 mg/dL 06/25/2024 11:56 AM CDT [facility] Sodium 141 136 - 145 mmol/L 06/25/2024 11:56 AM CDT [facility] Potassium 3.5 3.5 - 4.5 mmol/L 06/25/2024 11:56 AM T [facility] Chloride 115(H) 98 - 107 mmol/L 06/25/2024 11:56 AM [facility] CO2 20(L) 22 - 29 mmol/L 06/25/2024 11:56 AM [facility] Glucose 148(H) 70 - 115 mg/dL 06/25/2024 11:56 AM [facility] Calcium 9.4 8.4 - 10.2 mg/dL 06/25/2024 11:56 AM [facility] Protein Total 6.9 6.0 - 8.3 g/dL 06/25/2024 11:56 AM [facility] Albumin 3.9 3.4 - 5.0 g/dL 06/25/2024 11:56 AM [facility] Bilirubin Total 0.2 0.2 - 1.2 mg/dL 06/25/2024 11:56 AM [facility] Alkaline Phosphatase 93 40 - 150 U/L 06/25/2024 11:56 AM [facility] ALT 14 5 - 55 U/L 06/25/2024 11:56 AM [facility] AST 15 5 - 34 U/L 06/25/2024 11:56 AM [facility] Anion Gap 6 6 - 16 06/25/2024 11:56 AM [facility] BUN/Creatinine Ratio 21 7 - 23 06/25/2024 11:56 AM [facility] Osmolality Calculated 295 275 - 295 mOsm/kg 06/25/2024 11:56 AM [facility] Albumin/Globulin Ratio 1.3 1.1 - 2.3 06/25/2024 11:56 AM [facility] eGFR by CKD-EPI >90 >=90 mL/min/1.7 3 m2 06/25/2024 11:56 AM [facility] Blood BLOOD SPECIMEN / Unknown Venipuncture / Unknown 06/25/2024 11:19 AM CDT 06/25/2024 11:32 AM [facility] Britni Winston PA-C LAB - CHEMISTRY JON Alonzo Organization Address City/State/ZIP Co de Phone Number [facility] [address] [place] [address], [place] [phone] * (ABNORMAL) PHOSPHORUS BLOOD (06/25/2024 11:19 AM CDT) Phosphorus 2.8(L) 2.9 - 5.1 mg/dL 06/25/2024 11:56 AM CDT [facility] Blood BLOOD SPECIMEN / Unknown Venipuncture / Unknown 06/25/2024 11:19 AM CDT 06/25/2024 11:32 AM CDT Britni Winston PA-C LAB - CHEMISTRY JON NAIDU Performing Organization Address City/State/[facility] Co de Phone Number [facility] [address] [place] [phone], [facility] [place] [phone] documented in this encounter Visit Diagnoses Diagnosis 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sion (HCC)- Primary 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 Arthritis Arthropathy, unspecified, site unspecified Acute pain of right knee AML (acute myeloid leukemia) in remission (HCC) Acute myeloid leukemia in remission Acute pain of right knee documented in this encounter Care Teams Industrial Roofer Relationship Specialty Start Date End Date Osmar Ragland MD [address] [place] [phone] PCP - General Family Medicine 04/19/24 documented as of this encounter
--- OUTSIDE RECORDS SUMMARY | 2024-08-31 21:25 | XMS_ITS | Encounter Summary ---
Author Organization [facility] Address [address] [place], [place] [address] [address] Care Team Providers Care Cadd Technician Name Role Phone Nilam Mayers MD Primary Care Provider [phone] Encounter Details Date Type Department Care Team (Latest Contact Info) Description 03/31/2024 10:38 AM CDT - 03/31/2024 11:59 PM T Hospital Encounter [facility] [address] [place] [address] Hussain Carias MD [address] [place] [address] Britni Winston, PABaronC [address] [place] [address] Discharge Disposition: Home or Self [...] Recorded Patient Health Questionnaire-2 Score 0 03/03/2024 [facility] of Occupat ional Health - Occupational Stress [...] place to sleep or slept in a snf (including now)? No 01/19/2024 Sex and Gender Information Value Date Recorded Sex Assigned at Not on file Gender Identity Female 02/13/2024 1:12 PM CDT Sexual Orientation Not on file documented as of this encounter Last Filed Vital Signs Vital Sign Reading Time Taken Comments Blood Pressure 135/83 03/31/2024 11:00 AM CDT Pulse 103 03/31/2024 11:00 AM CDT Temperature 36.6 ??C (97.9 ??F) 03/31/2024 1 1:00 AM CDT Respiratory Rate 20 03/31/2024 11:0 0 AM CDT Oxygen Saturation 100% 03/31/2024 11: 00 AM CDT Inhaled Oxygen Concentration - - Weight 107.2 kg (236 lb 6.4 oz) 024 11:00 AM CDT Height - - Body Mass Index 43.24 03/03/2024 2:04 PM CDT documented in this [...] Sig Dispensed Refills Start Date End Date Carboxymethylcellulo se Sodium (ARTIFICIAL TEARS OP) famotidine (Pepcid) 20 MG tabletIndications:To nsillitis Take 1 (one) tablet by mouth 2 times daily 60 tablet 1 10/17/2023 multivitamin daily tablet Take 1 (one) tablet by mouth daily with food Womans multivitamin acetaZOLAMIDE (Diamox) 125 MG tablet Take 2 (two) tablets by mouth 2 times daily acetaZOLAMIDE (Diamox) 250 MG tablet Take 1 (one) tablet by mouth 2 times daily 60 tablet 03/05/2024 08/23/2024 ciprofloxacin (Cipro) 750 MG tablet TAKE ONE TABLET BY MOUTH EVERY 12 HOURS FOR 6 DAYS 12 tablet 01/23/2024 06/25/2024 dilTIAZem (Cardizem) injection APPLY TO AFFECTED AREA 2 TIMES A DAY 100 mL 1 01/23/2024 06/25/2024 medroxyPROGESTERone (Depo-Provera) 150 MG/ML vial Inject 1 mL into muscle every 84 days 10/14/2023 04/30/2024 metroNIDAZOLE (Flagyl) 500 MG tablet TAKE ONE TABLET BY MOUTH EVERY 8 HOURS FOR 6 DAYS 18 tablet 01/23/2024 06/25/2024 ondansetron (Zofran) 8 MG tabletIndications:Ca ncer Chemotherapy-Induced Nausea and Vomiting Take one tablet by mouth twice a day 1 hour before midostaurin on days 8 to 21 and one tablet every 12 hours as needed for breakthrough nausea/vomiting. 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) Take 3 (three) tablets by mouth daily with dinner 90 tablet 5 12/15/2023 05/20/2024 prochlorperazine (Compazine) 10 MG tablet Take 1 (one) tablet by mouth every 8 hours as needed for Nausea/Vomiting 04/30/2024 sennosides (Senokot) 8.6 MG tablet TAKE ONE TABLET BY MOUTH ONCE DAILY NEEDED FOR CONSTIPATION 30 tablet 01/23/2024 06/25/2024 valACYclovir (Valtrex) 500 MG tabletIndications: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 neuro-ophtho appts. She reports she just came from an appt at Dr. Griffin's office (PREP ROOM SUPERVISOR), and was called by [facility] neuro-ophtho to schedule an appt. Pt will follow up with PREP ROOM SUPERVISOR regarding her menorrhagia, and will follow up soon with [facility] for management of her papilledema/Diamox. Britni Winston PA-C Hematology, Blood & Marrow Transplant [facility] * Britni Winston PA-C - 03/31/2024 11:28 AM CDT Images from the original note were not included. HEMATOLOGY/ONCOLOGY INPATIENT PROGRESS NOTE Name: Sarah Mckeon Age: [age] year old Date of : 1985 Date of Service: 03/31/2024 Reason for Consult: AML HEMATOLOGY & ONCOLOGY [...] in August of 2023 was admitted to [facility] c/o flu like symptoms and ultimately had marrow biopsy revealing 78% blasts on marrow and flow cytometry confirmed NPM1 mutation. 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 Completed 7 + 3 induction, cou nt recovery BMBx on 09/1723 confirmed remission. Has completed 2 consolidation therapies. 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 All have been worked up both in the inpatient and outpatient setting, well controlled on current medication regimen. Interval History: Pt presents for lab check and clinic visit. Per ophthalmology team, pt was restarted on Diamox for papilledema. She continues to follow with Dr. Hobson ([facility] ophthalmology) and continues to wait for referral to be completed to [facility] neuro-ophtho; pt was told that she would be receiving a call. We have also confirmed this plan with the [facility] o phthalmology team. Pt reports symptoms of heavy menstrual bleeding since 03/16/24. She reports intermittent heavy bleeding, most notably yesterday when she soaked through two large pads within three hours. She also has been passing clots, the largest of which was about a half-pad sized. Her other clots have been smaller, per pt, more like quarter-sized, but have been consistent. It is associated with cramping abdominal pain, intermittent. Last depo-provera shot was in January 2024. After completion of her chemotherapy for AML in 01/2024, pt was advised to f/u with PREP ROOM SUPERVISOR for further menstrual bleeding workup and contraception. However, pt notes she has been trying to contact an PREP ROOM SUPERVISOR for 3 weeks without success. She denies any other complains or concerns. Denies rashes anywhere. Denies fevers, chills, nausea, vomiting, diarrhea, or constipation. VSS Review of Systems: Review of Systems Constitutional: Negative for chills, fever, malaise/fatigue and weight loss. HENT: Negative for congestion and sore throat. Eyes: Negative for blurred vision, double vision and pain. Respiratory: Negative for cough and shortness of breath. Cardiovascular: Negative for chest pain. Gastrointestinal: Positive for abdominal pain. Negative for blood in stool, constipation, diarrhea,melena, nausea and vomiting. Genitourinary: Negative for dysuria, [...] unspecified 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 ([facility]) 09/06/2023 - Chemotherapy cytarabine (Cytosar) 460 [...] Active Treatment Days for Sarah Mckeon (until 04/01/2024) There are no remaining days before 04/01/2024. Medications SCHEDULED MEDICATIONS: Current Outpatient Medications Medication Sig acetaZOLAMIDE (Diamox) 250 MG tablet Take 1 (one) tablet by mouth 2 times daily Carboxymethylcellulose Sodium (ARTIFICIAL TEARS OP) dilTIAZem 1% CREA Apply to affected area 2 times daily docusate sodium (Colace) 100 MG capsule Take 1 (one) capsule by mouth once daily famotidine (Pepcid) 20 MG tablet Take 1 (one) tablet by mouth 2 times daily medroxyPROGESTERone (Depo-Provera) 150 MG/ML vial Inject 1 mL into muscle every 84 days multivitamin daily tablet Take 1 (one) tablet by mouth daily with food Womans multivitamin ondansetron (Zofran) 8 MG tablet Take one tablet by mouth twice a day 1 hour before midostaurin on days 8 to 21 and one tablet every 12 hours as needed for breakthrough nausea/vomiting. Reasons: Nausea and Vomiting caused by Cancer Chemotherapy polyethylene glycol 3350 (Miralax) 17 GM/SCOOP powder Take 17 (seventeen) g by mouth once daily posaconazole (Noxafil) 100 MG tablet Take 3 (three) tablets by mouth daily with dinner prochlorperazine (Compazine) 10 MG tablet Take 1 (one) tablet by mouth every 8 hours as needed for Nausea/Vomiting valACYclovir (Valtrex) 500 MG tablet Take 1 (one) tablet by mouth 2 times daily No current facility-administered medications for this encounter. Allergies Allergies Allergen Reactions Vancomycin Itching OBJECTIVE Physical Exam Vitals: 03/31/24 1100 BP: 135/83 Pulse: 103 Resp: 20 Temp: 97.9 ??F SpO2: 100% Weight: 107.2 kg (236 lb 6.4 oz) Wt Readings from Last 3 Encounters: 03/31/24 107.2 kg (236 lb 6.4 oz) 03/03/24 111.6 kg (246 lb) 03/03/24 109.3 kg (241 lb) Karnofsky/ECO/0 General appearance - well-appearing, and [...] noted Laboratory Results Recent Labs Component Name 03/22/24 1004 02/26/24 1312 02/20/24 0943 WBC 5.9 5.8 7.2 RBC 3.29* 2.99* 2.89* HGB 11.1* 9.6* 9.2* HCT 32.8* 28.5* 27.0* MCV 99.7* 95.3 93.4 MCHC 33.8 33.7 34.1 PLTCOUNT 44* 41* 46* NEUTPCT 73.3 64.9 74.8* LYMPHPCT 15.8* 18.0 13.1* NEUTABS 4.32 3.75 5.41 LYMPHABS 0.93* 1.04 0.95* BASOABS 0.01 0.01 0.01 Recent Labs Component Name 03/22/24 1004 02/26/24 1312 02/20/24 0943 POTASSIUM 3.7 3.8 3.6 CO2 18* 21* 21* BUN 9 7 7 CREATININE 0.84 0.66 0.65 EGFR >90 >90 >90 GLUCOSE 103 119* 159* CALCIUM 9.8 9.4 9.5 MAGNESIUM 2.2 2.1 2.0 PHOS 3.9 2.8* 3.3 ALT 16 29 24 AST 18 24 17 ALKPHOS 87 74 81 Recent Labs Component Name 03/22/24 1004 02/26/24 1312 02/20/24 0943 MAGNESIUM 2.2 2.1 2.0 Recent Labs Component Name 03/22/24 1004 02/26/24 1312 02/20/24 0943 PHOS 3.9 2.8* 3.3 Pathology Results RVP (12/19/23): negative Radiology Results [...] substantially decreased from 09/28/2023. Findings could be pest control service representative of small airways disease. Otherwise, no [...] and molecular remission after 7+3 -Transferred from [facility] after a BMBX showed 78% blasts on [...] consolidation. No more IT treatment planned. - 03/31/24 labs reviewed. Hgb up trending, but platelets continue to be stable/low. Obtained nutrition labs 03/31. - Next NPM1 PCR labs 04/30. General transfusion parameters (leukoreduced and irradiated blood products): - pRBC transfusion if hgb drops below 7. - Plt transfusion if plts drop below 10k; but if bleeding, plt transfusion if plts drop below 20K for minor bleeds (including heavy menses) and 50K for major bleeds, if possible. - Platelets 50K is adequate for most invasive procedures. - Platelets 100K is adequate for neurosurgical interventions. - Please recheck plt count immediately after completing platelet transfusion to assess response. 2. Thrombocytopenia - Unclear etiology, could be 2/2 HiDAC chemotherapy but would have expected recovery of platelets by now. - Also complicated by profuse menstrual bleeding. - Nutritional labs sent 03/31. 3. Vaginal Bleeding - Heavy per pt history 03/31/24. - At completion of chemotherapy, pt was advised to f/u with PREP ROOM SUPERVISOR for further contraception and menorrhagia treatment, including Depo-Provera if indicated. - At 03/31/24 visit, pt reports significant difficulty in setting up an appointment. - Will give depo-provera x1 03/31/24 d/t significant menstrual bleeding noted. - Called pt's local PREP ROOM SUPERVISOR, office of Dr. Griffin, who state they will review patient's chart and schedule an appointment if indicated. Faxed recent lab work, CT scan, and this note to their office. 4. Hx of elevated ICP, papilledema - Symptom onset during admission, 10/07/23. LP at the time revealed elevated impending pressure, butmeningitis w/u was unrevealing. - Concerns for IIH previously. - H/o Multilayered retinal Hemorrhages in both eyes - Sx resolved as of 10/2023. - Diamox restarted 02/2024 per ophthalmology; pt awaiting referral to [facility] neuro-ophthalmology. 5. Ovarian mass, r/o teratoma - Incidental finding on 01/15 CT scan: 2.8 x 3.0 cm heterogenous mass within the left ovary containing areas of fat density and multiple calcified foci, will refer to gynecology. Discussed this with pton 01/28/24 (UPT neg 01/28/24). - F/u with [facility] PREP ROOM SUPERVISOR; most recent note plans for TVUS ~late March 2024. 6. Metabolic acidosis - present on labs 03/31, likely 2/2 to diamox - Will CTM - Pt needs to follow up with neuro-ophthalmology as soon as able for further monitoring of Diamox. Will reach out to [facility] ophthalmology team to check on status of this referral. PLAN: - Labs reviewed. Platelets low, though other counts significantly recovered. Unsure if thrombocytopenia is 2/2 underlying issue vs. From profuse menstrual bleeding at this time. - Nutritional labs pending: copper, folate, B12. - Depo-provera given in clinic 03/31 for menstrual bleeding with plan for urgent f/u with PREP ROOM SUPERVISOR, see above. - Will also follow up on status of neuro-ophtho referral. - Stop posaconazole, as no longer needed for fungal ppx. Continue on Valtrex for VCV ppx at this time. DISPOSITION: RTC on 04/30 for basics, NPM1 lab, and ABEL visit The total time spent today in the visit with the patient, performing chart preparation, review of data, and documentation, not related to any procedure or preventative visit services was 48 minutes. Britni Winston PA-C Blood & Marrow Transplant [facility] documented in this encounter Plan of Treatment Upcoming Encounters Date Type Department Care Team (Late st Contact Info) Description 10/27/2024 10:30 AM ODD BUNDLE WORKER Appointment [facility] [address] [place] [address] Hussain Carias MD [address] [place] [address] Britni Winston PA-C [address] [place] [address] 11/17/2024 9:00 AM ODD BUNDLE WORKER Office Visit [facility] - Ophthalmology [address] [place] [phone] Song Hobson MD [address] [place] [address] [place] [phone] documented as of this encounter Procedures Procedure Name Priority Date/Time Associated Diagnosis Comments COPPER BLOOD Routine 03/31/2024 12:18 PM CDT Pancytopenia due to chemotherapy (HCC) FOLATE Routine 03/31/2024 12:18 PM CDT Pancytopenia due to chemotherapy (HCC) URIC ACID BLOOD STAT 03/31/2024 11:22 AM CDT Acute myeloid leukemia in remission (HCC) TYPE + SCREEN PANEL STAT 03/31/2024 1 1:22 AM CDT Acute myeloid leukemia in remission (HCC) CBC W AUTO DIFFERENTIAL STAT 03/31/2024 11:22 AM CDT Acute myeloid leukemia in remission (HCC) COMPREHENSIVE METABOLIC PANEL STAT 03/31/2024 11:22 AM CDT Acute myeloid leukemia in remission (HCC) PHOSPHORUS BLOOD STAT 03/31/2024 11:2 2 AM CDT Acute myeloid leukemia in remission (HCC) MAGNESIUM BLOOD STAT 03/31/2024 11:22 AM CDT Acute myeloid leukemia in remission (HCC) LDH BLOOD STAT 03/31/2024 11:22 AM CDT Acute myeloid leukemia in remission (HCC) VITAMIN B12 Routine 03/31/2024 11:22 AM CDT Pancytopenia due to chemotherapy (HCC) documented in this encounter Results * FOLATE (03/31/2024 12:18 PM CDT) Pathologist [facility] Folate 13.5 7.0 - 31.4 ng/mL 03/31/2024 1:41 PM CDT [facility] [employer] Blood BLOOD SPECIMEN / Unknown Venipuncture / Unknown 03/31/2024 12:18 PM CDT 03/31/2024 12:35 PM CDT Britni Winston PA-C LAB - CHEMISTRY JON NAIDU [address] [address], [facility] [phone] * COPPER BLOOD (03/31/2024 12:18 PM CDT) Pathologist [facility] Copper 114.0 80.0 - 155.0 ug/dL 04/01/2024 5:17 PM CDT [facility]) Comment: INTERPRETIVE INFORMATION: Copper, Serum or [...] developed and its performance characteristics determined by [employer]. It has not been cleared or approved by the [place] Food and Drug Administration. This test was performed in a CLIA certified laboratory and is intended for clinical purposes. Performed By: [facility] [employer] [address] [place] [address] Side Guider: Ebenezer Shipman MD, PhD CLIA Number: [id number] Blood BLOOD SPECIMEN / Unknown Venipuncture / Unknown 03/31/2024 12:18 PM CDT 03/31/2024 12:30 PM CDT Britni Winston PA-C LAB - CHEMISTRY JON NAIDU [facility]) [address] [place] [address] * VITAMIN B12 (03/31/2024 11:22 AM CDT) Pathologist [facility] Vitamin B12 267 213 - 816 pg/mL 03/31/2024 12:32 PM CDT [facility] Blood BLOOD SPECIMEN / Unknown Venipuncture / Unknown 03/31/2024 11:22 AM CDT 03/31/2024 11:26 AM CDT Britni Winston PA-C LAB - CHEMISTRY JON NAIDU [address] [address], [place] [phone] * TYPE + SCREEN PANEL (03/31/2024 11:22 AM CDT) Antibody Screen NEG 12:12 PM CDT [facility] ABO Rh O POS 03/31/2024 12:12 PM CDT [facility] Blood Bank BLOOD SPECIMEN / Unknown Venipuncture / Unknown 03/31/2024 11:22 AM CDT 03/31/2024 11:27 AM CDT Britni Winston PA-C LAB - BLOOD BANK ORD ERAJANES [facility] [address] [place] [address], [place] [phone] * URIC ACID BLOOD (03/31/2024 11:22 AM CDT) [facility] Uric Acid 5.3 2.6 - 6.0 mg/dL 03/31/2024 11:59 AM CDT [facility] Blood BLOOD SPECIMEN / Unknown Venipuncture / Unknown 03/31/2024 11:22 AM CDT 03/31/2024 11:26 AM CDT Britni Winston PA-C LAB - CHEMISTRY JON NAIDU Performing Organization Address [facility]/ZIP Co de Phone Number [address] [address], [place] [phone] * (ABNORMAL) LDH BLOOD (03/31/2024 11:22 AM CDT) [facility] LDH Total 260(H) 125 - 243 Units/L 03/31/2024 11:59 AM CDT [facility] Blood BLOOD SPECIMEN / Unknown Venipuncture / Unknown 03/31/2024 11:22 AM CDT 03/31/2024 11:26 AM CDT Britni Winston PA-C LAB - CHEMISTRY JON NAIDU Performing Organization Address City/[facility]/ZIP Co de Phone Number [address] [address], [place] [phone] * (ABNORMAL) CBC WITH DIFFERENTIAL (03/31/2024 11:22 AM [facility]) WBC 5.6 4.0 - 10.7 x10E9/L 03/31/2024 11:47 AM [facility] RBC Count 3.09(L) 3.90 - 5.20 x10E12/L 03/31/2024 11:47 AM [facility] Hemoglobin 10.4(L) 11.9 - 15.8 g/dL 03/31/2024 11:47 AM [facility] Hematocrit 31.0(L) 34.8 - 46.1 % 03/31/2024 11:47 AM [facility] MCV 100.3(H) 80.0 - 98.0 fL 03/31/2024 11:47 AM [facility] MCH 33.7(H) 26.7 - 33.6 pg 03/31/2024 11:47 AM [facility] MCHC 33.5 31.7 - 36.3 g/dL 03/31/2024 11:47 AM [facility] RDW-CV 18.1(H) 11.3 - 14.8 % 03/31/2024 11:47 AM [facility] Platelet Count 51(L) 150 - 420 x10E9/L 03/31/2024 11:47 AM [facility] MPV 12.8(H) 7.8 - 11.4 fL 03/31/2024 11:47 AM [facility] Preliminary Absolute Neutrophil 4.11 1.60 - 7.50 x10E9/L 03/31/2024 11:47 AM [facility] Comment:Preliminary ANC pend ing manual confirmation Neutrophil % 73.8 41.0 - 74.0 % 03/31/2024 11:47 AM [facility] Lymphocyte % 15.8(L) 17.0 - 47.0 % 03/31/2024 11:47 AM [facility] Monocyte % 8.8 3.0 - 11.0 % 03/31/2024 11:47 AM [facility] Eosinophil % 0.9 0.0 - 7.0 % 03/31/2024 11:47 AM [facility] Basophil % 0.2 0.0 - 1.6 % 03/31/2024 11:47 AM [facility] Immature Granulocytes % 0.5 0.0 - 1.0 % 03/31/2024 11:47 AM [facility] Neutrophil Absolute 4.11 1.60 - 7.50 x10E9/L 03/31/2024 11:47 AM [facility] Lymphocyte Absolute 0.88(L) 1.00 - 4.40 x10E9/L 03/31/2024 11:47 AM [facility] Monocyte Absolute 0.49 0.15 - 1.00 x10E9/L 03/31/2024 11:47 AM [facility] Eosinophil Absolute 0.05 0.00 - 0.60 x10E9/L 03/31/2024 11:47 AM [facility] Basophil Absolute 0.01 0.00 - 0.13 x10E9/L 03/31/2024 11:47 AM [facility] Blood BLOOD SPECIMEN / Unknown Venipuncture / Unknown 03/31/2024 11:22 AM CDT 03/31/2024 11:26 AM CDT Britni Winston PA-C LAB - HEMATOLOGY ORD ERABLES Performing Organization Address City/[facility]/ZIP Co de Phone Number [address] [address], [facility] [phone] * MAGNESIUM BLOOD (03/31/2024 11:22 AM CDT) Magnesium 2.1 1.6 - 2.6 mg/dL 03/31/2024 11:59 AM CDT [facility] Blood BLOOD SPECIMEN / Unknown Venipuncture / Unknown 03/31/2024 11:22 AM CDT 03/31/2024 11:26 AM CDT Britni Winston PA-C LAB - CHEMISTRY ORDE ELYSIA [address] [address] [phone] * (ABNORMAL) COMPREHENSIVE METABOLIC PANEL (03/31/2024 11:22 AM [facility]) BUN 9 7 - 26 mg/dL 03/31/2024 11:59 AM [facility] Creatinine 0.68 0.56 - 0.96 mg/dL 03/31/2024 11:59 AM [facility] Sodium 141 136 - 145 mmol/L 03/31/2024 11:59 AM [facility] Potassium 3.7 3.5 - 4.5 mmol/L 03/31/2024 11:59 AM [facility] Chloride 119(H) 98 - 107 mmol/L 03/31/2024 11:59 AM [facility] CO2 16(L) 22 - 29 mmol/L 03/31/2024 11:59 AM [facility] Glucose 177(H) 70 - 115 mg/dL 03/31/2024 11:59 AM [facility] Calcium 9.4 8.4 - 10.2 mg/dL 03/31/2024 11:59 AM [facility] Protein Total 7.2 6.0 - 8.3 g/dL 03/31/2024 11:59 AM [facility] Albumin 3.6 3.4 - 5.0 g/dL 03/31/2024 11:59 AM [facility] Bilirubin Total 0.3 0.2 - 1.2 mg/dL 03/31/2024 11:59 AM [facility] Alkaline Phosphatase 81 40 - 150 U/L 03/31/2024 11:59 AM [facility] ALT 20 5 - 55 U/L 03/31/2024 11:59 AM [facility] AST 25 5 - 34 U/L 03/31/2024 11:59 AM [facility] Anion Gap 6 6 - 16 03/31/2024 11:59 AM [facility] BUN/Creatinine Ratio 13 7 - 23 03/31/2024 11:59 AM [facility] Osmolality Calculated 295 275 - 295 mOsm/kg 03/31/2024 11:59 AM [facility] Albumin/Globulin Ratio 1.0(L) 1.1 - 2.3 03/31/2024 11:59 AM CDT [facility] eGFR by CKD-EPI >90 >=90 mL/min/1.7 3 m2 03/31/2024 11:59 AM CDT [facility] Blood BLOOD SPECIMEN / Unknown Venipuncture / Unknown 03/31/2024 11:22 AM CDT 03/31/2024 11:26 AM CDT Britni Winston PA-C LAB - CHEMISTRY ORDAzul NAIDU Performing Organization Address City/[facility]/ZIP Co de Phone Number [address] [address], [facility] [phone] * (ABNORMAL) PHOSPHORUS BLOOD (03/31/2024 11:22 AM CDT) Phosphorus 2.1(L) 2.9 - 5.1 mg/dL 03/31/2024 11:59 AM CDT [facility] Blood BLOOD SPECIMEN / Unknown Venipuncture / Unknown 03/31/2024 11:22 AM CDT 03/31/2024 11:26 AM CDT Britni Winston PA-C LAB - CHEMISTRY JON NAIDU Performing Organization Address City/[facility]/ZIP Co de Phone Number [address] [address], [facility] [phone] documented in this encounter Visit Diagnoses Diagnosis Pancytopenia due to chemotherapy (HCC)- Primary 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 Is medication being prescribed by Dock Grader or Oncologist? Yes $ Given 03/31/2024 1:07 PM CDT 150 mg Right Deltoid documented in this encounter Care Teams Cadd Technician Relationship Specialty Start Date End Date Nilam Mayers MD [address] [place] [phone] PCP - General Family Medicine 09/04/23 04/18/24 documented as of this encounter
--- OUTSIDE RECORDS SUMMARY | 2024-08-31 21:25 | XMS_ITS | Encounter Summary ---
Author Organization [facility] Health Address [address] [place] [address] [place] [address] Care Team Providers Care Cafeteria Or Lunchroom Checker Name Role Phone Osmar Ragland MD Primary Care Provider [phone] Encounter Details Date Type Department Care Team (Latest Contact Info) Description 04/30/2024 Travel Social History Tobacco Use Types Packs/Day Years Used Date Smoking Tobacco: Former Cigarettes 1 2010 Smokeless Tobacco: Never Alcohol Use Standard [...] Recorded Patient Health Questionnaire-2 Score 0 03/03/2024 [facility] [place] of Occupat ional Health - Occupational Stress [...] place to sleep or slept in a residential (including now)? No 01/19/2024 Sex and Gender [...] st Contact Info) Description 10/27/2024 10:30 AM FLY TIER Appointment [facility] BMT CLINIC [address] [place] [address] Hussain Carias MD [address] [place] [address] Britni Winston, PABaronC [address] [place] [address] 11/17/2024 9:00 AM FLY TIER Office Visit [facility] - Ophthalmology [address] [place] [phone] Song Hobson MD [address] [place] [address] [place] [phone] documented as of this encounter Visit Diagnoses Not on filedocumented in this encounter Care Teams Cafeteria Or Lunchroom Checker Relationship Specialty Start Date End Date Osmar Ragland MD [address] [place] [phone] PCP - General Family Medicine 04/19/24 documented as of this encounter
--- OUTSIDE RECORDS SUMMARY | 2024-08-31 21:25 | XMS_ITS | Encounter Summary ---
Author Organization [facility] Address [address] [place], [place] [address] [address] Care Team Providers Care Diesel Automotive Technician Name Role Phone Nilam Mayers MD Primary Care Provider [phone]- [phone] Reason for Visit * Reason Onset Date Comments Referral 04/13/2024 Encounter Details Date Type Department Care Team (Late st Contact Info) Description 04/13/2024 Telephone [facility] - Ophthalmology [address] [place] [phone] Song Hobson MD [address] [place] [address] [place] [phone] Referral Social History Tobacco Use Types Packs/Day Years [...] Recorded Patient Health Questionnaire-2 Score 0 03/03/2024 [facility] [place] of Occupat ional Health - Occupational Stress [...] place to sleep or slept in a alf (including now)? No 01/19/2024 Sex and Gender [...] No 03/03/2024 documented as of this encounter Miscellaneous Notes * Telephone Encounter - Vicki Briseno - 04/13/2024 8:07 AM CDT [facility] informed me that patient is scheduled for neuro ophthalmology exam on 09/16/24 w/ Dr. Ribeiro. documented in this encounter Plan of Treatment Upcoming Encounters Date Type Department Care Team (Late st Contact Info) Description 10/27/2024 10:30 AM WAFER FABRICATOR Appointment [facility] BMT CLINIC [address] [place], [place] [phone] Hussain Carias MD [address] [place] [phone] Britni Winston, PA-C [address] [place] [address] 11/17/2024 9:00 AM WAFER FABRICATOR Office Visit [facility] - Ophthalmology [address] [place] [phone] Song Hobson MD [address] [place] [address] [place] [phone] documented as of this encounter Visit Diagnoses Not on filedocumented in this encounter Care Teams Diesel Automotive Technician Relationship Specialty Start Date End Date Nilam Mayers MD [address] [place] [phone] PCP - General Family Medicine 09/04/23 04/18/24 documented as of this encounter
--- OUTSIDE RECORDS SUMMARY | 2024-08-31 21:25 | XMS_ITS | Encounter Summary ---
Author Organization [facility] Address [address] [place], [place] [address] [address] Care Team Providers Care Pipe Fitter Ammonia Name Role Phone Osmar Ragland MD Primary Care Provider [phone]- [phone] Encounter Details Date Type Department Care Team (Late st Contact Info) Description 08/23/2024 8:56 AM FLOOR LAYER HELPER - 08/23/2024 11:59 PM [facility] Hospital Encounter [facility] BMT CLINIC [address] [place] [address] Hussain Carias MD [address] [place] [address] Lupe Chamorro, ZACH-SENIOR PRODUCT MARKETING MANAGER [address] [facility] [place] [address] Discharge Disposition: Home or Self Care Social [...] Recorded Patient Health Questionnaire-2 Score 0 03/03/2024 [facility] [place] of Occupat ional Health - Occupational Stress [...] place to sleep or slept in a mcc (including now)? No 01/19/2024 Sex and Gender Information Value Date Recorded Sex Assigned at Not on file Gender Identity Female 02/13/2024 1:12 PM CDT Sexual Orientation Not on file documented as of this encounter Last Filed Vital Signs Vital Sign Reading Time Taken Comments Blood Pressure 136/93 08/23/2024 9:57 AM FLOOR LAYER HELPER Pulse 90 08/23/2024 9:57 AM FLOOR LAYER HELPER Temperature 36.7 ??C (98.1 ??F) 08/23/2024 9:57 AM CS T Respiratory Rate 18 08/23/2024 9:57 AM FLOOR LAYER HELPER Oxygen Saturation 97% 08/23/2024 9:57 AM FLOOR LAYER HELPER Inhaled Oxygen Concentration - - Weight 117.3 kg (258 lb 11.2 oz) 08/23/2024 9:57 AM FLOOR LAYER HELPER Height 157.5 cm (5' 2 ) 08/23/2024 9:57 AM FLOOR LAYER HELPER Body Mass Index 47.32 08/23/2024 9:57 AM FLOOR LAYER HELPER documented in this encounter Functional Status Functional [...] Sig Dispensed Refills Start Date End Date acetaZOLAMIDE (Diamox) 250 MG tabletIndications:IIH (idiopathic intracranial hypertension) Take 1 (one) tablet by mouth 2 times daily 60 tablet 3 08/23/2024 12/21/2024 Carboxymethylcellulose Sodium (ARTIFICIAL TEARS OP) famotidine (Pepcid) 20 MG tabletIndications:Tons illitis Take 1 (one) tablet by mouth 2 times daily 60 tablet 1 10/17/2023 folic acid (Folvite) 1 MG tablet Take 1 (one) tablet by mouth once daily 90 tablet 06/01/2024 multivitamin daily tablet Take 1 (one) tablet by mouth daily with food Womans multivitamin documented as of this encounter Progress Notes * Lupe Chamorro APRN-CHU - 08/23/2024 8:58 AM CST Images from the original note were not included. HEMATOLOGY/ONCOLOGY INPATIENT PROGRESS NOTE Name: Sarah Mckeon Age: [age] year old Date of : 1985 Date of Service: 08/23/2024 Reason for Consult: AML HEMATOLOGY & ONCOLOGY HISTORY Principal Diagnosis: AML Current Therapy: S/P C4 HiDAC consolidation SUBJECTIVE History of Present Illness Chief Complaint: Follow up visit post C4 HiDAC History of Present Illness: Sarah Mckeon is a 39 year old female with favorable risk AML, NPM-1 mutation in complete remissionpresenting for C3 of HiDAC consolidation therapy. Originally in August of 2023 was admitted to [facility] c/o flu like symptoms and ultimately had marrow biopsy revealing 78% blasts on marrow and flow cytometry confirmed NPM1 mutation. Was sent to [facility] for AML. Completed 7 + 3 induction, cou nt recovery BMBx on 10/01/23 confirmed remission. Has completed 2 consolidation therapies. 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 All have been worked up bothin the inpatient and outpatient setting, well controlled on current medication regimen. Interval History: -Mora presents to the clinic today for scheduled labs and visit. -Denies fever or chills. -No URI symptoms. -Plans to get her Flu shot at her local [facility] but says she is not getting a Covid shot. -Denies N/V/D, or constipation. -Eating and drinking well. -Says she continues to have vaginal bleeding with frequent large clots and this has been going on for several months. She has seen her CUSHION BUILDER and she was put on a 14 day BCP but continued to bleed through that as well. She plans to go back to her CUSHION BUILDER to discuss ablation vs hysterectomy. -She continues to have right knee pain and has gone through 8 PT visit with no improvement. -She will be getting MRI of her right knee this Sat. 08/29. -No other complaints or concerns. Review of Systems: Review of Systems Constitutional: [...] unspecified 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 ([facility]) 09/06/2023 - Chemotherapy cytarabine (Cytosar) 460 [...] Active Treatment Days for Sarah Mckeon (until 08/24/2024) There are no remaining days before 08/24/2024. Medications SCHEDULED MEDICATIONS: Current Outpatient Medications Medication Sig acetaZOLAMIDE (Diamox) 250 MG tablet Take 1 (one) tablet by mouth 2 times daily Carboxymethylcellulose Sodium (ARTIFICIAL TEARS OP) famotidine (Pepcid) 20 MG tablet Take 1 (one) tablet by mouth 2 times daily (Patient taking differently: Take 1 (one) tablet by mouth once daily) folic acid (Folvite) 1 MG tablet Take 1 (one) tablet by mouth once daily multivitamin daily tablet Take 1 (one) tablet by mouth daily with food Womans multivitamin No current facility-administered medications for this encounter. Allergies Allergies Allergen Reactions Vancomycin Itching OBJECTIVE Physical Exam Vitals: 08/23/24 0957 BP: 136/93 Pulse: 90 Resp: 18 Temp: 98.1 ??F (36.7 ??C) SpO2: 97% Weight: 117.3 kg (258 lb 11.2 oz) Height: 1.575 m (5' 2 ) Wt Readings from Last 3 Encounters: 08/23/24 117.3 kg (258 lb 11.2 oz) 06/25/24 115.5 kg (254 lb 9.6 oz) 04/30/24 109.8 kg (242 lb) Karnofsky/ECO/0 General appearance - alert, well appearing, and in no distress Mental status - alert, oriented to person, place, and time, normal mood, behavior, speech, dress, motor activity, and thought processes Chest - clear to auscultation, no wheezes, rales or rhonchi, symmetric air entry Heart - normal rate, regular rhythm, normal S1, S2, no murmurs, rubs, clicks or gallops Abdomen - soft, nontender, nondistended, no masses or organomegaly; bowel sounds normal Musculoskeletal - stable, chronic right knee pain Extremities - no pedal edema noted, intact peripheral pulses Skin - normal coloration and turgor, no rashes, no suspicious skin lesions noted Laboratory Results Recent Labs Component Name 08/23/24 0940 06/25/24 1119 04/30/24 1019 02/06/24 0958 02/02/24 1110 01/30/24 1057 01/28/24 1117 01/28/24 0944 12/30/23 2035 12/30/23 1104 11/10/23 1541 11/10/23 1312 10/13/23 2140 10/13/23 1354 10/02/23 2132 10/01/23211809/30/23200809/07/23200709/06/23 2143 09/05/23 0909 09/04/23 0525 WBC 5.2 5.4 5.7 - 3.9* 3.2* - 3.1* - - - 1.1* - 0.5* - 4.1 4.1 - 0.6* - 1.9* RBC 4.47 4.29 3.62* - 2.54* 2.61* - 2.71* - - - 2.80* - 2.54* - 2.36* 2.32* - 2.45* - 2.51* HGB 14.1 14.1 12.6 - 7.4* 7.6* - 7.7* - - - 8.3* - 7.5* - 7.3* 7.1* - 7.9* - 8.1* HCT 40.6 40.8 37.6 - 21.1* 21.3* - 22.0* - - - 23.0* - 20.2* - 21.5* 20.4* - 22.0* - 22.6* MCV 90.8 95.1 103.9* - 83.1 81.6 - 81.2 - - - 82.1 - 79.5* - 91.1 87.9 - 89.8 - 90.0 MCH 31.5 32.9 34.8* - 29.1 29.1 - 28.4 - - - 29.6 - 29.5 - 30.9 30.6 - 32.2 - 32.3 MCHC 34.7 34.6 33.5 - 35.1 35.7 - 35.0 - - - 36.1 - 37.1* - 34.0 34.8 - 35.9 - 35.8 PLTCOUNT 153 134* 86* - 37* 53* - 30* - - - 20* - 3* - 110* 97* - 23* - 35* PLT - - - - - - - - - 34* - - - - - - - - - - - MPV 9.1 9.2 10.8 - 11.8* 11.0 - 10.9 - - - 12.6* - - - 11.4 11.0 - 11.8* - - NEUTPCT 72.7 69.8 66.4 - - - - - - - - - - - - - - - - - - MONOPCT 8.4 10.2 12.5* - - - - - - - - - - - - - - - - - - EOSPCT 1.3 0.9 0.9 - - - - - - - - - - - - - - - - - - BASOPCT 0.2 0.2 0.2 - - - - - - - - - - - - - - - - - - NEUTABS 3.81 3.77 3.79 - 1.70 1.87 0.79* 1.06* - 0.65* 0.87* - - - 0.82* 0.77* - 0.05* 0.02* - 1.06* 1.93 0.82* 1.15* - 0.20* 0.18* - 0.11* 0.21* MONO - - - - 0.59 0.64 - 0.50 - - - - - - - 0.78 1.07* - 0.02* - 0.02* EOS - - - - - - - - - - - 0.01 - - - 0.04 0.04 - - - 0.02 BASO - - - - - - - - - - - - - 0.01 - - - - 0.01 - 0.04 - = values in this interval not displayed. Recent Labs Component Name 08/23/24 0940 06/25/24 1119 04/30/24 1019 BUN 9 14 16 CREATININE 0.63 0.67 0.67 NA 141 141 141 POTASSIUM 3.5 3.5 3.8 CL 112* 115* 117* CO2 19* 20* 18* GLUCOSE 155* 148* 130* CALCIUM 9.3 9.4 9.4 PROT 7.0 6.9 7.3 ALB 3.7 3.9 4.1 TBILI 0.4 0.2 0.2 ALKPHOS 106 93 94 ALT 18 14 12 AST 18 15 12 ANIONGAP 10 6 6 BCR 14 21 24* OSMOLALITY 294 295 295 AGRATIO 1.1 1.3 1.3 EGFR >90 >90 >90 Recent Labs Component Name 08/23/24 0940 06/25/24 11104/30/24 1019 MAGNESIUM 1.9 2.2 2.1 Recent Labs Component Name 08/23/24 0940 06/25/24 11104/30/24 1019 PHOS 2.6* 2.8* 2.8* Pathology Results Radiology Results X-Ray Right Knee (06/25/24):No acute fracture or dislocation identified. UE/LE dopplers (01/16/24): No evidence of deep [...] substantially decreased from 09/28/2023. Findings could be hobbies and crafts sales representative of small airways disease. Otherwise, [...] female with favorable risk AML, NPM-1 mutation, here for scheduled follow up. 1. 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 Obtained nutrition labs 03/31. NPM1 PCR ND -08/23/24: CBC WNL. NPM1 PCR pending. 2. Thrombocytopenia - Unclear etiology, could be 2/2 HiDAC chemotherapy but would have expected recovery of platelets by now. - Also complicated by menstrual bleeding. - Nutritional labs 03/31 WNL. - Resolved.(08/23/24) 3. Menorrhagia - Follows with her local ELECTRON GUN ASSEMBLER, Dr. Griffin. - Continues on Provera 10mg PO QD. - 08/23/24: Has been vaginally bleeding for last few months with occasional large clots. Was seen byher CUSHION BUILDER and put on a 14 day BCP but also spotted or bled through this. Plans to F/U with CUSHION BUILDER and discuss eith ablation or hysterectomy. 4. Hx of elevated ICP, papilledema - Symptom onset during admission, 10/07/23. LP at the time revealed elevated impending pressure, butmeningitis w/u was unrevealing. - Concerns for IIH previously. - H/o Multilayered retinal Hemorrhages in both eyes - Sx resolved as of 10/2023. - Diamox restarted 02/2024 per ophthalmology; pt has [facility] neuro-ophtho appt scheduled 09/2024. 5. Ovarian mass, r/o teratoma - Incidental finding on 01/15 CT scan: 2.8 x 3.0 cm heterogenous mass within the left ovary containing areas of fat density and multiple calcified foci, will refer to gynecology. Discussed this with pton 01/28/24 (UPT neg 01/28/24). - F/u with [facility] ELECTRON GUN ASSEMBLER; most recent note plans for TVUS ~late March 2024. 6. Metabolic acidosis - present on labs 03/31, likely 2/2 to diamox but gradually improving as of visit 06/25/24 - Continues on labs from 08/23/24 - Will CTM - Pt has f/u with [facility] neuro-ophthalmology scheduled 09/2024. # Right Knee Pain: -X-Ray of right knee showed no acute findings, no effusion, fracture or concerns for arthritis or degenerative changes. Mora has been advised to follow up with PCP regarding her knee pain. PLAN: - Labs reviewed with patient. CBC/Diff WNL - Continue to f/u with ELECTRON GUN ASSEMBLER regarding menorrhagia, ovarian mass. - F/U with [facility] neuro-ophthalmology for papilledema/Diamox monitoring. Appt scheduled 09/2024. - Metabolic acidosis continues ?likely r/t diamox. Will apprec [facility] neuro-ophtho recs after visit. - Follow NPM1 PCR sent today (06/25). - Completed 8 PT sessions for right knee pain and scheduled for right knee MRI 08/27 DISPOSITION: RTC on 10/27/24 for basics, NPM1 lab, and ABEL visit The total time spent today in the visit with the patient, performing chart preparation, review of data, and documentation, not related to any procedure or preventative visit services was 25 minutes. Lupe Chamorro APRN, MASON HELPER-C Bone Marrow Transplant [facility] Office #[phone] R LAYER HELPER documented in this encounter Plan of Treatment Upcoming Encounters Date Type Department Care Team (Late st Contact Info) Description 10/27/2024 10:30 AM FLOOR LAYER HELPER Appointment [facility] BMT CLINIC [address] [place] [address] Hussain Carias MD [address] [place] [phone] Britni Winston, PABaronC [address] [place] [address] 11/17/2024 9:00 AM FLOOR LAYER HELPER Office Visit [facility] - Ophthalmology [address] [place] [address], [place] [address] Song Hobson MD [address] [place] [address] [place] [phone] documented as of this encounter Procedures Procedure Name Priority Date/Time Associated Diagnosis Comments NPM1 MUTATION DETECTION PCR Routine 08/23/2024 9:40 AM FLOOR LAYER HELPER Acute myeloid leukemia in remission (HCC) CBC W AUTO DIFFERENTIAL Routine 08/23/2024 9:40 AM FLOOR LAYER HELPER Acute myeloid leukemia in remission (HCC) COMPREHENSIVE METABOLIC PANEL Routine 08/23/2024 9:40 AM FLOOR LAYER HELPER Acute myeloid leukemia in remission (HCC) PHOSPHORUS BLOOD Routine 08/23/2024 9:40 AM FLOOR LAYER HELPER Acute myeloid leukemia in remission (HCC) MAGNESIUM BLOOD Routine 08/23/2024 9:40 AM FLOOR LAYER HELPER Acute myeloid leukemia in remission (HCC) documented in this encounter Results * NPM1 MUTATION DETECTION PCR (08/23/2024 9:40 AM FLOOR LAYER HELPER) [facility] Signature NPM1 Source Whole Blood 08/27/2024 1:35 PM [facility] ([facility]) NPM1 Result Not Detected 08/27/2024 1:35 PM [facility] ([facility]) Comment: A NPM1 (type A, B, or [...] AML. N Engl J Med. 2016 Oct 4;374(5):422-33. This test was developed and its performance characteristics determined by [employer]. It has not been cleared or approved by the US Food and Drug Administration. This test was performed in a CLIA certified laboratory and is intended for clinical purposes. NPM1 Ratio 0.0000 08/27/2024 1:35 PM FLOOR LAYER HELPER [employer] [facility]) Comment: Performed By: [employer] [address] [place] [address] Rail Flaw Detector Operator: Ebenezer Shipman MD, PhD CLIA Number: [id number] BLOOD SPECIMEN / Unknown 08/23/2024 9:40 AM FLOOR LAYER HELPER 08/23/2024 9:56 AM FLOOR LAYER HELPER Hussain Carias MD LAB - CHEMISTRY [facility]ON NA[facility] [employer] [facility]) [address] [place] [address], [facility] * (ABNORMAL) PHOSPHORUS BLOOD (08/23/2024 9:40 AM FLOOR LAYER HELPER) Phosphorus 2.6(L) 2.9 - 5.1 mg/dL 08/23/2024 10:23 AM FLOOR LAYER HELPER [facility] Blood BLOOD SPECIMEN / Unknown Venipuncture / Unknown 08/23/2024 9:40 AM FLOOR LAYER HELPER 08/23/2024 9:56 AM FLOOR LAYER HELPER Hussain Carias MD LAB - CHEMISTRY JON NAIDU [address] [address], [facility] [phone] * MAGNESIUM BLOOD (08/23/2024 9:40 AM FLOOR LAYER HELPER) Magnesium 1.9 1.6 - 2.6 mg/dL 08/23/2024 10:23 AM [facility] Blood BLOOD SPECIMEN / Unknown Venipuncture / Unknown 08/23/2024 9:40 AM FLOOR LAYER HELPER 08/23/2024 9:56 AM FLOOR LAYER HELPER Hussain Carias MD LAB - CHEMISTRY JON NAIDU Performing Organization Address City/[facility]/ZIP Co de Phone Number [address] [address], [facility] [phone] * (ABNORMAL) COMPREHENSIVE METABOLIC PANEL (08/23/2024 9:40 AM FLOOR LAYER HELPER) BUN 9 7 - 26 mg/dL 08/23/2024 10:23 AM [facility] Creatinine 0.63 0.56 - 0.96 mg/dL 08/23/2024 10:23 AM [facility] Sodium 141 136 - 145 mmol/L 08/23/2024 10:23 AM [facility] Potassium 3.5 3.5 - 4.5 mmol/L 08/23/2024 10:23 AM [facility] Chloride 112(H) 98 - 107 mmol/L 08/23/2024 10:23 AM [facility] CO2 19(L) 22 - 29 mmol/L 08/23/2024 10:23 AM [facility] Glucose 155(H) 70 - 99 mg/dL 08/23/2024 10:23 AM [facility] Calcium 9.3 8.4 - 10.2 mg/dL 08/23/2024 10:23 AM [facility] Protein Total 7.0 6.0 - 8.3 g/dL 08/23/2024 10:23 AM [facility] Albumin 3.7 3.4 - 5.0 g/dL 08/23/2024 10:23 AM [facility] Bilirubin Total 0.4 0.2 - 1.2 mg/dL 08/23/2024 10:23 AM [facility] Alkaline Phosphatase 106 40 - 150 U/L 08/23/2024 10:23 AM [facility] ALT 18 5 - 55 U/L 08/23/2024 10:23 AM [facility] AST 18 5 - 34 U/L 08/23/2024 10:23 AM [facility] Anion Gap 10 6 - 16 08/23/2024 10:23 AM [facility] BUN/Creatinine Ratio 14 7 - 23 08/23/2024 10:23 AM [facility] Osmolality Calculated 294 275 - 295 mOsm/kg 08/23/2024 10:23 AM [facility] Albumin/Globulin Ratio 1.1 1.1 - 2.3 08/23/2024 10:23 AM [facility] eGFR by CKD-EPI >90 >=90 mL/min/1.7 3 m2 08/23/2024 10:23 AM [facility] Blood BLOOD SPECIMEN / Unknown Venipuncture / Unknown 08/23/2024 9:40 AM FLOOR LAYER HELPER 08/23/2024 9:56 AM [facility] Hussain Carias MD LAB - CHEMISTRY MANJULAE [facility] Organization Address City/State/[facility] Co de Phone Number [facility] [address] [place] [phone] [phone] * (ABNORMAL) CBC WITH DIFFERENTIAL (08/23/2024 9:40 AM [facility]) WBC 5.2 4.0 - 10.7 x10E9/L 08/23/2024 10:03 AM [facility] RBC Count 4.47 3.90 - 5.20 x10E12/L 08/23/2024 10:03 AM [facility] Hemoglobin 14.1 11.9 - 15.8 g/dL 08/23/2024 10:03 AM [facility] Hematocrit 40.6 34.8 - 46.1 % 08/23/2024 10:03 AM [facility] MCV 90.8 80.0 - 98.0 fL 08/23/2024 10:03 AM [facility] MCH 31.5 26.7 - 33.6 pg 08/23/2024 10:03 AM [facility] MCHC 34.7 31.7 - 36.3 g/dL 08/23/2024 10:03 AM [facility] RDW-CV 12.6 11.3 - 14.8 % 08/23/2024 10:03 AM [facility] Platelet Count 153 150 - 420 x10E9/L 08/23/2024 10:03 AM [facility] MPV 9.1 7.8 - 11.4 fL 08/23/2024 10:03 AM [facility] Preliminary Absolute Neutrophil 3.81 1.60 - 7.50 x10E9/L 08/23/2024 10:03 AM [facility] Neutrophil % 72.7 41.0 - 74.0 % 08/23/2024 10:03 AM [facility] Lymphocyte % 17.0 17.0 - 47.0 % 08/23/2024 10:03 AM [facility] Monocyte % 8.4 3.0 - 11.0 % 08/23/2024 10:03 AM [facility] Eosinophil % 1.3 0.0 - 7.0 % 08/23/2024 10:03 AM [facility] Basophil % 0.2 0.0 - 1.6 % 08/23/2024 10:03 AM [facility] Immature Granulocytes % 0.4 0.0 - 1.0 % 08/23/2024 10:03 AM [facility] Neutrophil Absolute 3.81 1.60 - 7.50 x10E9/L 08/23/2024 10:03 AM [facility] Lymphocyte Absolute 0.89(L) 1.00 - 4.40 x10E9/L 08/23/2024 10:03 AM [facility] Monocyte Absolute 0.44 0.15 - 1.00 x10E9/L 08/23/2024 10:03 AM [facility] Eosinophil Absolute 0.07 0.00 - 0.60 x10E9/L 08/23/2024 10:03 AM [facility] Basophil Absolute 0.01 0.00 - 0.13 x10E9/L 08/23/2024 10:03 AM [facility] Blood BLOOD SPECIMEN / Unknown Venipuncture / Unknown 08/23/2024 9:40 AM FLOOR LAYER HELPER 08/23/2024 9:56 AM FLOOR LAYER HELPER Hussain Carias MD LAB - HEMATOLOGY ORD ERABLES [facility] [address] [place] [address], [facility] [phone] documented in this encounter Visit Diagnoses Diagnosis IIH (idiopathic intracranial hypertension)- Primary Benign intracranial hypertension 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 documented in this encounter Care Teams Pipe Fitter Ammonia Relationship Specialty Start Date End Date Osmar Ragland MD [address] [place] [phone] PCP - General Family Medicine 04/19/24 documented as of this encounter
--- OUTSIDE RECORDS SUMMARY | 2024-08-31 21:25 | XMS_ITS | Encounter Summary ---
Author Organization [facility] Address [address] [place], [place] [address] [address] Care Team Providers Care Machine Tech Name Role Phone Osmar Ragland MD Primary Care Provider [phone] Reason for Visit * Reason Comments Follow-up Encounter Details Date Type Department Care Team (Late st Contact Info) Description 05/20/2024 9:00 AM CDT Office Visit [facility] - Ophthalmology [address] [place] [phone] Song Hobson MD [address] [place] [address] DE[place] [address] Papilledema associated with increased intracranial pressure (Primary Dx); Acute myeloid leukemia in remission (HCC); IIH (idiopathic intracranial hypertension) Social History Tobacco Use Types Packs/Day Years [...] Recorded Patient Health Questionnaire-2 Score 0 03/03/2024 [facility] [place] of Occupat ional Health - Occupational Stress [...] place to sleep or slept in a custodial (including now)? No 01/19/2024 Sex and Gender [...] No 03/03/2024 documented as of this encounter Progress Notes * Gary Weems MD - 05/20/2024 10:14 AM CDT Ophthalmology Office Note Subjective: Chief Complaint Patient presents with Follow-up Sarah Mckeon is a 39 year old female who presents for 1 mos follow up with repeat HVF and OCTH. Gtts: none Oral Diamox 250 mg PO BID Headaches have resolved. Denies flahses, floaters, pain, pressure. Eyes are sticky lately (allergies?) Past History: Past Medical History: Diagnosis Date Acute hypoxic respiratory failure (HCC) 09/27/2023 Acute myeloid leukemia in remission (HCC) 09/03/2023 Anemia 11/04/2023 Hypernatremia 11/05/2023 Hypophosphatemia 11/05/2023 IIH (idiopathic intracranial hypertension) 10/09/2023 Pancytopenia due to chemotherapy (HCC) 09/05/2023 Pseudotumor cerebri 12/06/2023 Pulmonary edema (HCC) 09/27/2023 Tachycardia 12/30/2023 Tonsillitis 09/05/2023 Past Surgical History: Procedure Laterality Date Section Cholecystectomy KIDNEY STONES, REMOVAL Family History Family history unknown: Yes Current Outpatient Medications Medication Sig Dispense Refill acetaZOLAMIDE (Diamox) 250 MG tablet Take 1 (one) tablet by mouth 2 times daily 60 tablet 0 Carboxymethylcellulose Sodium (ARTIFICIAL TEARS OP) famotidine (Pepcid) 20 MG tablet Take 1 (one) tablet by mouth 2 times daily 60 tablet 1 ibuprofen (Motrin) 800 MG tablet TAKE 1 TABLET (800 MG) BY ORAL ROUTE 3 TIMES PER DAY WITH FOOD FOR4 DAYS multivitamin daily tablet Take 1 (one) tablet by mouth daily with food Womans multivitamin polyethylene glycol 3350 (Miralax) 17 g packet Take by mouth once daily valACYclovir (Valtrex) 500 MG tablet Take 1 (one) tablet by mouth 2 times daily 60 tablet 11 No current facility-administered medications for this visit. Allergies Allergen Reactions Vancomycin Itching Objective: Base Eye Exam Visual Acuity (Snellen - Linear) Right Left Dist sc 20/15 20/15 Tonometry (Tonopen, 9:49 AM) Right Left Pressure 16 12 Pupils Pupils Dark Light Shape React APD Right PERRL 4 3 Round Brisk None Left PERRL 4 3 Round Brisk None Visual Hurt (Counting fingers) Left Right Full Full Extraocular Movement Right Left Full, Ortho Full, Ortho Neuro/Psych Oriented x3: Yes Mood/Affect: Normal Dilation Both eyes: 1.0% Mydriacyl, 2.5% Dar Synephrine @ 9:48 AM Additional Tests Color Right Left Ishihara Slit Lamp and Fundus Exam External Exam Right Left External Normal Normal Slit Lamp Exam Right Left Lids/Lashes Normal Normal Conjunctiva/Sclera White and quiet White and quiet Cornea Clear Clear Anterior Chamber Deep and quiet Deep and quiet Iris Round and pharm dilated Round and pharm dilated Lens Trace cortical changes Trace cortical changes Anterior Vitreous Normal Normal Fundus Exam Right Left Disc Grade 1 disc edema, no hemorrhages Lizzie 1 disc edema (mostly sup/inf poles), no hemorrhages C/D Ratio 0.05 0.05 Macula Normal Normal Vessels Mildly dilated and tortuous Mildly dilated and tortuous Periphery Normal Normal Study Findings 05/20/2024: Assessment/Plan: Papilledema OU -- improving - Leukemic infiltrate vs combined mechanism - Initial presentation 09/29/23 to the ED with elevated discs OU with grade 3-4 disc edema, though with difficult visualization of the surrounding blood vessels due to obscuration from heme. No TVOs or pulsatile tinnitus. - CT with multiple indications of increased ICP - including scleral indentation - Risk factors: obesity with BMI: 46.9, pulse of high dose steroids :dexamethasone 8-12mg from 09/05/23-09/10/23, setting of AML - VA 20/20, color full - LP with opening pressure measured on 10/06/23 with 31 cm H2O measured, confirming increased ICP. - MRV: no thrombosis, stenosis of multiple sinuses c/w IIH. Neurology states this is cavernous sinus thrombosis in their note. 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 Patient was on diamox 500mg BID but appears it was discontinued by her primary team around 01/07/24 due to metabolic acidosis - 04/19/24 now restarted on Diamox 250mg BID. Resolved prior headache (though with new shooting sensation from neck to R parietal region after starting antibiotic for toe infection), intermittent whooshing left ear stable from prior, no vision changes or diplopia. Visual function intact with VA 20/20OU and full color vision. HVF with stable borderline enlarged blind spot OD, full field OS. OCT nerve with significantly improving edema OU. Still clinically with grade 2 edema OD and grade 1 edema OS. - 05/20/24 still on PO diamox 250 mg BID, continues without SIDHU, no whooshing. VA 20/15 OU, color vision full. OCT and HVF stable. DFE with improving disc edema, now grade 1 OU, no hemorrhages. [facility]. Vitreous hemorrhage OU -- resolved, fully dehemoglobinized History of thrombocytopenia History of AML (in remission) - Initial exam Sep 2023 with intraretinal and preretinal hemorrhages OU, sub ILM hemorrhage OD, CWSOU, French spots OU - In setting of pancytopenia and febrile neutropenia - Has since completed course of chemotherapy and is now in remission - Hemorrhages now mostly resolved with small spots of completely dehemoglobinized VH OU - Evaluated by Dr. Jeronimo 03/22/24, follow up with retina PRN Plan: - F/u with [facility] neuro-ophthalmology 09/2024 as scheudled - Good response to Diamox, will continue 250mg BID - Return 6 months for color vision, HVF 24-2, OCT-H nerve, DFE Patient verbalizes understanding of the above assessment/plan, patient's questions were answered tothe best of my ability, and patient agrees with the plan. Patient was seen with Dr. Hobson. Lei Weems MD Ophthalmology Resident 05/20/2024 Associated attestation - Song Hobson MD - 05/20/2024 5:11 PM CDT I have examined the patient in person with the resident and/or student, verified aguirre portions of the exam, reviewed the note and amended it as needed, and discussed the assessment and plan with the resident and/or student, who incorporated the recommendations into their note. I also discussed the exam findings and my recommendations with the patient and any family members in attendance. Their questions were answered fully. Arrangements for follow-up appointments and testing were scheduled priorto the patient's departure. In addition, I note the following: AML, Papilledema vs Leukemic infiltrate vs combined mechanism, H/O peripapillary hemorrhage, Thrombocytopenia: LP opening pressure on 10/06/23 was 31 cm H2O. Patient is now asymptomatic. She denies headaches, diplopia, tinnitus/whooshing, TVOs, or positional changes in vision. Acuity is good OU. Color Plates are normal OU. DFE today shows Grade 0.5 disc edema OU (only sectoral areas of blurred disc margins). Review of [facility] VF: date: pattern deviation, reliability. (foveal threshold dB), (VFI%), (Mean Deviation dB). 09/30/2023: borderline superior defect OD, large superior arcuate scotoma OS, IT scotoma OS, good reliability OD, poor reliability OS. (28 OD, 35 OS), (92% OD, 82% OS), (-4.9 OD, -6.5 OS). 10/02/2023: borderline superior defect OD, superior arcuate scotoma OS, good reliability OD, good reliability OS. (36 OD, 36 OS), (92% OD, 91% OS), (-5.2 OD, -5.0 OS). 10/13/2023: full field OD, Felipe scotoma OS, good reliability OD, good reliability OS. (37 OD, 35 OS), (96% OD, 97% OS), (-2.9 OD, -3.8 OS). 03/02/2024: full field OD, full field OS, good reliability OD, good reliability OS. (37 OD, 38 OS), (98% OD, 97% OS), (-2.5 OD, -2.4 OS). 04/19/2024: full hurt OU, fair reliability OD, good reliability OS. (37 OD, 40 OS), (99% OD, 100% OS), (-0.3 OD, -0.2 OS). 05/20/2024 (today): full hurt OU, fair reliability OD, good reliability OS. (40 OD, 39 OS), (99% OD, 100% OS), (+0.3 OD, +0.3 OS). Review of [facility] OCT-Nerve/RNFL (central avg RNFL): 09/30/2023: 180 OD, 257 OS 10/02/2023: 175 OD, 165 OS 10/13/2023: 153 OD, 134 OS 03/02/2024: 193 OD, 159 OS 04/19/2024: 119 OD, 116 OS. 05/20/2024 (today): 108 OD, 101 OS. No sectoral atrophy or edema OU. Summary: Patient is asymptomatic. Acuity is good OU and stable OU. Color Plates are normal OU. Visual hurt are full OU. [facility] OCT-Nerve/RNFL is now completely normal OU. PLAN: - Continue Diamox 250 mg PO BID. - Follow up as scheduled at [facility] Neuro-Ophthalmology for further evaluation and assessment. - RTC 6 months, [facility] OCT-Nerve/RNFL, HVF 24-2, DFE. H/O leukemic retinopathy OU: DFE shows resolved multilayered retinal hemorrhages, and resolved vitreous hemorrhages. Song Hobson MD, PhD Attending, Cornea and Anterior Segment Service Date of Service: 05/20/2024 documented in this encounter Plan of Treatment Upcoming Encounters Date Type Department Care Team (Late st Contact Info) Description 10/27/2024 10:30 AM ADJUSTER ARBITRATOR Appointment [facility] [address] [place] [address] Hussain Carias MD [address] [place] [phone] Britni Winston PA-C [address] [place] [address] 11/17/2024 9:00 AM ADJUSTER ARBITRATOR Office Visit [facility] - Ophthalmology [address] [place] [phone] Song Hobson MD [address] [place] [address] DE[place] [phone] Pending Results Name Type Priority Associated Diagnoses Date /Time RETINAL ANALYSIS OCT Ophthalmology Routine IIH (idiopathic intracranial hypertension) 05/20/2024 9:17 AM CDT [employer] AUT[employer] VISUAL FIELD EXTENDED Ophthalmology Routine IIH (idiopathic intracranial hypertension) 05/20/2024 9:16 AM CDT Scheduled Orders Name Type Priority Associated Diagnoses Orde r Schedule RETINAL ANALYSIS OCT Ophthalmology Routine IIH (idiopathic intracranial hypertension) Expected: 05/20/2024, Expires: 07/20/2025 [employer] AUT[employer] VISUAL FIELD EXTENDED Ophthalmology Routine IIH (idiopathic intracranial hypertension) Expected: 05/20/2024, Expires: 07/20/2025 documented as of this encounter Visit Diagnoses Diagnosis Papilledema associated with increased intracranial pressure- Primary 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 IIH (idiopathic intracranial hypertension) Benign intracranial hypertension documented in this encounter Care Teams Machine Tech Relationship Specialty Start Date End Date Osmar Ragland MD [address] [place] [phone] PCP - General Family Medicine 04/19/24 documented as of this encounter
--- OUTSIDE RECORDS SUMMARY | 2024-08-31 21:25 | XMS_ITS | Encounter Summary ---
Author Organization [facility] Address [address] [place], [place] [address] [address] Care Team Providers Care All Source Collection Manager Name Role Phone Osmar Ragland MD Primary Care Provider [phone] Encounter Details Date Type Department Care Team (Latest Contact Info) Description 05/20/2024 9:25 AM CDT Clinical Support [facility] - Ophthalmology [address] [place] [phone] Song Hobson MD [address] [place] [address] [place] [phone] IIH (idiopathic intracranial hypertension) (Primary Dx) Social History Tobacco Use Types [...] Patient Health Questionnaire-2 Score 0 03/03/2024 [place] [facility] Occupat ional Health - Occupational Stress [...] st Contact Info) Description 10/27/2024 10:30 AM HEALTH RESEARCHER Appointment [facility] [address] [place] [address] Hussain Carias MD [address] [place] [phone] Britni Winston, PA-C [address] [place], [place] [phone] 11/17/2024 9:00 AM HEALTH RESEARCHER Office Visit [facility] - Ophthalmology [facility], [place], [place] [address] Song Hobson MD [address] [place] [address] [place] [phone] Pending Results Name Type Priority Associated Diagnoses Date /Time [employer] AUTO VISUAL FIELD EXTENDED Ophthalmology Routine IIH (idiopathic intracranial hypertension) 05/20/2024 9:16 AM CDT documented as of this encounter Visit Diagnoses Diagnosis IIH (idiopathic intracranial hypertension)- Primary Benign intracranial hypertension documented in this encounter Care Teams All Source Collection Manager Relationship Specialty Start Date End Date Osmar Ragland MD [address] [place] [phone] PCP - General Family Medicine 04/19/24 documented as of this encounter
--- OUTSIDE RECORDS SUMMARY | 2024-08-31 21:25 | XMS_ITS | Encounter Summary ---
Author Organization [facility] Address [address] [place], [place] [address] [address] Care Team Providers Care Breakdown Person Name Role Phone Osmar Ragland MD Primary Care Provider [phone]- [phone] Encounter Details Date Type Department Care Team (Latest Contact Info) Description 04/19/2024 9:40 AM CDT Clinical Support [facility] - Ophthalmology [address] [place] [phone] Song Hobson MD [address] [place] [address] [place] [address] Papilledema associated with increased intracranial [...] Recorded Patient Health Questionnaire-2 Score 0 03/03/2024 [place] of Occupat ional Health - Occupational Stress [...] st Contact Info) Description 10/27/2024 10:30 AM VULCANIZER OPERATOR Appointment [facility] [address] [place] [address] Hussain Carias MD [address] [place] [phone] Britni Winston, PA-C [address] [place], [place] [phone] 11/17/2024 9:00 AM VULCANIZER OPERATOR Office Visit [facility] - Ophthalmology [address] [place] [address], [place] [phone] Song Hobson MD [facility] [place] [address] Pending Results Name Type Priority Associated Diagnoses Date /Time DOLL AUTO VISUAL FIELD EXTENDED Ophthalmology Routine Papilledema associated with increased intracranial pressure 04/19/2024 9:31 AM CDT documented as of this encounter Visit Diagnoses Diagnosis Papilledema associated with increased intracranial pressure- Primary documented in this encounter Care Teams Breakdown Person Relationship Specialty Start Date End Date Osmar Ragland MD [address] [place] [phone] PCP - General Family Medicine 04/19/24 documented as of this encounter
--- OUTSIDE RECORDS SUMMARY | 2024-08-31 21:25 | XMS_ITS | Encounter Summary ---
Author Organization [facility] Address [address] [place], [place] [address] [address] Care Team Providers Care Special Education Teachers Name Role Phone Nilam Mayers MD Primary Care Provider [phone]- [phone] Encounter Details Date Type Department Care Team (Latest Contact Info) Description 03/22/2024 9:30 AM CDT - 03/22/2024 11:59 PM T Hospital Encounter [facility] [address] [place] [address] Hussain Carias MD [address] [place] [address] Cori Hill APRN-CNP [address] [place], [place] [phone] Discharge Disposition: Home or Self Care Social [...] Recorded Patient Health Questionnaire-2 Score 0 03/03/2024 [employer] [place] of Occupat ional Health - Occupational Stress [...] place to sleep or slept in a senior care (including now)? No 01/19/2024 Sex and Gender [...] A DAY 100 mL 1 01/23/2024 06/25/2024 dilTIAZem 1% CREA Apply to affected area 2 times daily 100 g 1 01/23/2024 03/31/2024 docusate sodium (Colace) 100 MG capsule Take 1 (one) capsule by mouth once daily 01/23/2024 03/31/2024 medroxyPROGESTERone (Depo-Provera) 150 MG/ML vial Inject 1 [...] 12/01/2023 04/30/2024 polyethylene glycol 3350 (Miralax) 17 GM/SCOOP powder Take 17 (seventeen) g by mouth once daily 238 g 01/23/2024 03/31/2024 posaconazole (Noxafil) 100 MG tabletIndications:[place] myeloid leukemia in remission (HCC) Take 3 (three) tablets by mouth daily with dinner 90 tablet 5 12/15/2023 05/20/2024 prochlorperazine (Compazine) 10 MG tablet Take 1 (one) tablet by mouth every 8 hours as needed for Nausea/Vomiting 04/30/2024 sennosides (Senokot) 8.6 MG tablet TAKE ONE TABLET BY MOUTH ONCE DAILY NEEDED FOR CONSTIPATION 30 tablet 01/23/2024 06/25/2024 valACYclovir (Valtrex) 500 MG tabletIndications:[place] myeloid leukemia in remission (HCC) Take 1 (one) tablet by mouth 2 times daily 60 tablet 11 11/03/2023 08/23/2024 documented as of this encounter Plan of Treatment Upcoming Encounters Date Type Department Care Team (Late st Contact Info) Description 10/27/2024 10:30 AM RN CCU Appointment [facility] [address] [place] [address] Hussain Carias MD [address] [place] [phone] Britni Winston, PABaronC [address] [place] [address] 11/17/2024 9:00 AM RN CCU Office Visit [facility] - Ophthalmology [address] [place] [phone] Song Hobson MD [address] [place] [address] DEPT [place] [phone] documented as of this encounter Procedures Procedure Name Priority Date/Time Associated Diagnosis Comments TYPE + SCREEN PANEL Routine 03/22/2024 1 0:04 AM CDT Acute myeloid leukemia in remission (HCC) CBC W AUTO DIFFERENTIAL Routine 03/22/2024 10:04 AM CDT Acute myeloid leukemia in remission (HCC) COMPREHENSIVE METABOLIC PANEL Routine 03/22/2024 10:04 AM CDT Acute myeloid leukemia in remission (HCC) PHOSPHORUS BLOOD Routine 03/22/2024 10:0 4 AM CDT Acute myeloid leukemia in remission (HCC) MAGNESIUM BLOOD Routine 03/22/2024 10:04 AM CDT Acute myeloid leukemia in remission (HCC) documented in this encounter Results * TYPE + SCREEN PANEL (03/22/2024 10:04 AM CDT) Antibody Screen NEG 10:51 AM CDT [facility] ABO Rh O POS 03/22/2024 10:51 AM CDT [facility] Blood Bank BLOOD SPECIMEN / Unknown Venipuncture / Unknown 03/22/2024 10:04 AM CDT 03/22/2024 10:12 AM CDT Britni Winston PA-C LAB - BLOOD BANK ORD ERABLES Performing Organization Address City/[facility]/ZIP Co de Phone Number [facility] [address] [place] [address], [facility] [phone] * PHOSPHORUS BLOOD (03/22/2024 10:04 AM CDT) Phosphorus 3.9 2.9 - 5.1 mg/dL 03/22/2024 10:45 AM CDT [facility] Blood BLOOD SPECIMEN / Unknown Venipuncture / Unknown 03/22/2024 10:04 AM CDT 03/22/2024 10:14 AM CDT Britni Winston PA-C LAB - CHEMISTRY ORDE RABLES [facility] [address] [place] [phone], [facility] [phone] * MAGNESIUM BLOOD (03/22/2024 10:04 AM CDT) Magnesium 2.2 1.6 - 2.6 mg/dL 03/22/2024 10:45 AM CDT [facility] Blood BLOOD SPECIMEN / Unknown Venipuncture / Unknown 03/22/2024 10:04 AM CDT 03/22/2024 10:14 AM CDT Britni Winston PA-C LAB - CHEMISTRY JON NAIDU [facility] [address] [place] [address], [facility] [phone] * (ABNORMAL) COMPREHENSIVE METABOLIC PANEL (03/22/2024 10:04 AM CDT) BUN 9 7 - 26 mg/dL 03/22/2024 10:45 AM [facility] Creatinine 0.84 0.56 - 0.96 mg/dL 03/22/2024 10:45 AM [facility] Sodium 141 136 - 145 mmol/L 03/22/2024 10:45 AM [facility] Potassium 3.7 3.5 - 4.5 mmol/L 03/22/2024 10:45 AM [facility] Chloride 115(H) 98 - 107 mmol/L 03/22/2024 10:45 AM [facility] CO2 18(L) 22 - 29 mmol/L 03/22/2024 10:45 AM [facility] Glucose 103 70 - 115 mg/dL 03/22/2024 10:45 AM [facility] Calcium 9.8 8.4 - 10.2 mg/dL 03/22/2024 10:45 AM [facility] Protein Total 7.1 6.0 - 8.3 g/dL 03/22/2024 10:45 AM [facility] Albumin 3.8 3.4 - 5.0 g/dL 03/22/2024 10:45 AM [facility] Bilirubin Total 0.4 0.2 - 1.2 mg/dL 03/22/2024 10:45 AM [facility] Alkaline Phosphatase 87 40 - 150 U/L 03/22/2024 10:45 AM [facility] ALT 16 5 - 55 U/L 03/22/2024 10:45 AM [facility] AST 18 5 - 34 U/L 03/22/2024 10:45 AM [facility] Anion Gap 8 6 - 16 03/22/2024 10:45 AM [facility] BUN/Creatinine Ratio 11 7 - 23 03/22/2024 10:45 AM [facility] Osmolality Calculated 291 275 - 295 mOsm/kg 03/22/2024 10:45 AM [facility] Albumin/Globulin Ratio 1.2 1.1 - 2.3 03/22/2024 10:45 AM [facility] eGFR by CKD-EPI >90 >=90 mL/min/1.7 3 m2 03/22/2024 10:45 AM [facility] Blood BLOOD SPECIMEN / Unknown Venipuncture / Unknown 03/22/2024 10:04 AM T 03/22/2024 10:14 AM [facility] Britni Winston PA-C LAB - CHEMISTRY JON NAIDU [facility] Organization Address City/State/ZIP Co de Phone Number [address] [address] [phone] * (ABNORMAL) CBC W/ DIFFERENTIAL (03/22/2024 10:04 AM [facility]) WBC 5.9 4.0 - 10.7 x10E9/L 03/22/2024 11:04 AM [facility] RBC Count 3.29(L) 3.90 - 5.20 x10E12/L 03/22/2024 11:04 AM [facility] Hemoglobin 11.1(L) 11.9 - 15.8 g/dL 03/22/2024 11:04 AM [facility] Hematocrit 32.8(L) 34.8 - 46.1 % 03/22/2024 11:04 AM [facility] MCV 99.7(H) 80.0 - 98.0 fL 03/22/2024 11:04 AM [facility] MCH 33.7(H) 26.7 - 33.6 pg 03/22/2024 11:04 AM [facility] MCHC 33.8 31.7 - 36.3 g/dL 03/22/2024 11:04 AM [facility] RDW-CV 19.6(H) 11.3 - 14.8 % 03/22/2024 11:04 AM [facility] Platelet Count 44(L) 150 - 420 x10E9/L 03/22/2024 11:04 AM [facility] MPV 11.5(H) 7.8 - 11.4 fL 03/22/2024 11:04 AM [facility] Preliminary Absolute Neutrophil 4.32 1.60 - 7.50 x10E9/L 03/22/2024 11:04 AM [facility] Comment:Preliminary ANC pend ing manual confirmation Neutrophil % 73.3 41.0 - 74.0 % 03/22/2024 11:04 AM [facility] Lymphocyte % 15.8(L) 17.0 - 47.0 % 03/22/2024 11:04 AM [facility] Monocyte % 9.7 3.0 - 11.0 % 03/22/2024 11:04 AM [facility] Eosinophil % 0.7 0.0 - 7.0 % 03/22/2024 11:04 AM [facility] Basophil % 0.2 0.0 - 1.6 % 03/22/2024 11:04 AM [facility] Immature Granulocytes % 0.3 0.0 - 1.0 % 03/22/2024 11:04 AM [facility] Neutrophil Absolute 4.32 1.60 - 7.50 x10E9/L 03/22/2024 11:04 AM [facility] Lymphocyte Absolute 0.93(L) 1.00 - 4.40 x10E9/L 03/22/2024 11:04 AM [facility] Monocyte Absolute 0.57 0.15 - 1.00 x10E9/L 03/22/2024 11:04 AM [facility] Eosinophil Absolute 0.04 0.00 - 0.60 x10E9/L 03/22/2024 11:04 AM [facility] Basophil Absolute 0.01 0.00 - 0.13 x10E9/L 03/22/2024 11:04 AM [facility] Blood BLOOD SPECIMEN / Unknown Venipuncture / Unknown 03/22/2024 10:04 AM CDT 03/22/2024 10:14 AM CDT Britni Winston PA-C LAB - HEMATOLOGY ORD ERABLES Performing Organization Address City/State/[facility] Co de Phone Number [facility] [address] [place] [address], [facility] [phone] documented in this encounter Visit Diagnoses Diagnosis 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 documented in this encounter Care Teams Special Education Teachers Relationship Specialty Start Date End Date Nilam Mayers MD [address] [place] [phone] PCP - General Family Medicine 09/04/23 04/18/24 documented as of this encounter
--- OUTSIDE RECORDS SUMMARY | 2024-08-31 21:25 | XMS_ITS | Encounter Summary ---
Author Organization [facility] Address [address] [place], [place] [address] [address] Care Team Providers Care Blending Technician Name Role Phone Nilam Mayers MD Primary Care Provider [phone]- [phone] Osmar Ragland MD Primary Care Provider [phone] Reason for Visit * Reason Onset Date Comments Patient Requested Call 03/25/2024 Encounter Details Date Type Department Care Team (Late st Contact Info) Description 03/25/2024 Telephone [facility] - CANOE MAKER [address] [facility] [address] [place] [address] Thanh Green MD [address] [facility] [address] [place] [address] Patient Requested Call Social History Tobacco Use Types Packs/Day Years [...] Patient Health Questionnaire-2 Score 0 03/03/2024 [facility] [place] of Occupat ional Health - Occupational Stress [...] encounter Miscellaneous Notes * Telephone Encounter - Raven Howard - 03/25/2024 2:07 PM CDT Pt called and stated she got her menstrual cycle on Friday and she have had big blood clots in her pad. She stated its everyday and is the size of quarters and last night it was the size of gold ball. CB [phone] documented in this encounter Plan of Treatment Upcoming Encounters Date Type Department Care Team (Late st Contact Info) Description 10/27/2024 10:30 AM CARRIER WASHER Appointment [facility] [address] [place] [address] Hussain Carias MD [address] [place] [phone] Britni Winston, PA-C [address] [place], [place] [phone] 11/17/2024 9:00 AM CARRIER WASHER Office Visit [facility] - Ophthalmology [address] [place] [phone] Song Hobson MD [address] [place] [address] [place] [phone] documented as of this encounter Visit Diagnoses Not on filedocumented in this encounter Care Teams Blending Technician Relationship Specialty Start Date End Date Zaria-Nilam Johnson MD [address] [place] [phone] PCP - General Family Medicine 09/04/23 04/18/24 Osmar Ragland MD [address] [place] [phone] PCP - General Family Medicine 04/19/24 documented as of this encounter
--- OUTSIDE RECORDS SUMMARY | 2024-08-31 21:25 | XMS_ITS | Encounter Summary ---
Author Organization [facility] Address [address] [place], [place] [address] [address] Care Team Providers Care Area Field Worker Name Role Phone Osmar Ragland MD Primary Care Provider [phone]- [phone] Encounter Details Date Type Department Care Team (Late st Contact Info) Description 08/23/2024 Orders Only [facility] [address] [place] [address] Alyson Butcher, home administrator myeloid leukemia in remission (HCC) Social History Tobacco Use Types Packs/Day Years Used Date Smoking Tobacco: Former Cigarettes 1 2 - 2010 Smokeless Tobacco: Never Alcohol [...] Recorded Patient Health Questionnaire-2 Score 0 03/03/2024 [facility] [place] of Occupat ional Health - Occupational Stress [...] place to sleep or slept in a assisted (including now)? No 01/19/2024 Sex and Gender [...] st Contact Info) Description 10/27/2024 10:30 AM COMMUNITY DEVELOPMENT MANAGER Appointment [facility] [address] [place] [address] Hussain Carias MD [address] [place] [phone] Britni Winston PA-C [address] [place], [place] [phone] 11/17/2024 9:00 AM COMMUNITY DEVELOPMENT MANAGER Office Visit [facility] - Ophthalmology [address] [place] [address], [place] [address] Song Hobson MD [address] [place] [address] [place] [address] documented as of this encounter Results * NPM1 MUTATION DETECTION PCR (08/23/2024 9:40 AM COMMUNITY DEVELOPMENT MANAGER) [facility] NPM1 Source Whole Blood 08/27/2024 1:35 PM [facility] [employer] ([facility]) NPM1 Result Not Detected 08/27/2024 1:35 PM [facility] [employer] ([facility]) Comment: A NPM1 (type A, [...] developed and its performance characteristics determined by [employer]. It has not been cleared or approved by the US Food and Drug Administration. This test was performed in a CLIA certified laboratory and is intended for clinical purposes. NPM1 Ratio 0.0000 08/27/2024 1:35 PM COMMUNITY DEVELOPMENT MANAGER [employer] ([facility]) Comment: Performed By: [employer] [address] [place] [id number] It Systems Manager: Ebenezer Shipman MD, PhD CLIA Number: [id number] BLOOD SPECIMEN / Unknown 08/23/2024 9:40 AM COMMUNITY DEVELOPMENT MANAGER 08/23/2024 9:56 AM COMMUNITY DEVELOPMENT MANAGER Hussain Carias MD LAB - CHEMISTRY JON NAIDU [facility]) [address] [place] [address] * (ABNORMAL) PHOSPHORUS BLOOD (08/23/2024 9:40 AM COMMUNITY DEVELOPMENT MANAGER) Phosphorus 2.6(L) 2.9 - 5.1 mg/dL 08/23/2024 10:23 AM COMMUNITY DEVELOPMENT MANAGER [facility] Blood BLOOD SPECIMEN / Unknown Venipuncture / Unknown 08/23/2024 9:40 AM COMMUNITY DEVELOPMENT MANAGER 08/23/2024 9:56 AM COMMUNITY DEVELOPMENT MANAGER Hussain Carias MD LAB - CHEMISTRY JON NAIDU [facility] [address] [place] [address], [facility] [phone] * MAGNESIUM BLOOD (08/23/2024 9:40 AM COMMUNITY DEVELOPMENT MANAGER) Magnesium 1.9 1.6 - 2.6 mg/dL 08/23/2024 10:23 AM COMMUNITY DEVELOPMENT MANAGER [facility] Blood BLOOD SPECIMEN / Unknown Venipuncture / Unknown 08/23/2024 9:40 AM COMMUNITY DEVELOPMENT MANAGER 08/23/2024 9:56 AM COMMUNITY DEVELOPMENT MANAGER Hussain Carias MD LAB - CHEMISTRY JON NAIDU Performing Organization Address City/[facility]/ZIP Co de Phone Number [facility] [address] [place] [phone], [facility] [phone] * (ABNORMAL) COMPREHENSIVE METABOLIC PANEL (08/23/2024 9:40 AM COMMUNITY DEVELOPMENT MANAGER) BUN 9 7 - 26 mg/dL 08/23/2024 10:23 AM [facility] Creatinine 0.63 0.56 - 0.96 mg/dL 08/23/2024 10:23 AM [facility] Sodium 141 136 - 145 mmol/L 08/23/2024 10:23 AM [facility] Potassium 3.5 3.5 - 4.5 mmol/L 08/23/2024 10:23 AM [facility] Chloride 112(H) 98 - 107 mmol/L 08/23/2024 10:23 AM [facility] CO2 19(L) 22 - 29 mmol/L 08/23/2024 10:23 AM [facility] Glucose 155(H) 70 - 99 mg/dL 08/23/2024 10:23 AM [facility] Calcium 9.3 8.4 - 10.2 mg/dL 08/23/2024 10:23 AM [facility] Protein Total 7.0 6.0 - 8.3 g/dL 08/23/2024 10:23 AM [facility] Albumin 3.7 3.4 - 5.0 g/dL 08/23/2024 10:23 AM [facility] Bilirubin Total 0.4 0.2 - 1.2 mg/dL 08/23/2024 10:23 AM [facility] Alkaline Phosphatase 106 40 - 150 U/L 08/23/2024 10:23 AM [facility] ALT 18 5 - 55 U/L 08/23/2024 10:23 AM [facility] AST 18 5 - 34 U/L 08/23/2024 10:23 AM [facility] Anion Gap 10 6 - 16 08/23/2024 10:23 AM [facility] BUN/Creatinine Ratio 14 7 - 23 08/23/2024 10:23 AM [facility] Osmolality Calculated 294 275 - 295 mOsm/kg 08/23/2024 10:23 AM [facility] Albumin/Globulin Ratio 1.1 1.1 - 2.3 08/23/2024 10:23 AM [facility] eGFR by CKD-EPI >90 >=90 mL/min/1.7 3 m2 08/23/2024 10:23 AM [facility] Blood BLOOD SPECIMEN / Unknown Venipuncture / Unknown 08/23/2024 9:40 AM [facility] 08/23/2024 9:56 AM [facility] Hussain Carias MD LAB - CHEMISTRY JON NAIDU [facility] Organization Address City/State/ZIP Co de Phone Number [facility] [address] [place] [address] [phone] * (ABNORMAL) CBC WITH DIFFERENTIAL (08/23/2024 9:40 AM [facility]) WBC 5.2 4.0 - 10.7 x10E9/L 08/23/2024 10:03 AM [facility] RBC Count 4.47 3.90 - 5.20 x10E12/L 08/23/2024 10:03 AM [facility] Hemoglobin 14.1 11.9 - 15.8 g/dL 08/23/2024 10:03 AM [facility] Hematocrit 40.6 34.8 - 46.1 % 08/23/2024 10:03 AM [facility] MCV 90.8 80.0 - 98.0 fL 08/23/2024 10:03 AM [facility] MCH 31.5 26.7 - 33.6 pg 08/23/2024 10:03 AM [facility] MCHC 34.7 31.7 - 36.3 g/dL 08/23/2024 10:03 AM [facility] RDW-CV 12.6 11.3 - 14.8 % 08/23/2024 10:03 AM [facility] Platelet Count 153 150 - 420 x10E9/L 08/23/2024 10:03 AM [facility] MPV 9.1 7.8 - 11.4 fL 08/23/2024 10:03 AM [facility] Preliminary Absolute Neutrophil 3.81 1.60 - 7.50 x10E9/L 08/23/2024 10:03 AM [facility] Neutrophil % 72.7 41.0 - 74.0 % 08/23/2024 10:03 AM [facility] Lymphocyte % 17.0 17.0 - 47.0 % 08/23/2024 10:03 AM [facility] Monocyte % 8.4 3.0 - 11.0 % 08/23/2024 10:03 AM [facility] Eosinophil % 1.3 0.0 - 7.0 % 08/23/2024 10:03 AM [facility] Basophil % 0.2 0.0 - 1.6 % 08/23/2024 10:03 AM [facility] Immature Granulocytes % 0.4 0.0 - 1.0 % 08/23/2024 10:03 AM [facility] Neutrophil Absolute 3.81 1.60 - 7.50 x10E9/L 08/23/2024 10:03 AM [facility] Lymphocyte Absolute 0.89(L) 1.00 - 4.40 x10E9/L 08/23/2024 10:03 AM [facility] Monocyte Absolute 0.44 0.15 - 1.00 x10E9/L 08/23/2024 10:03 AM [facility] Eosinophil Absolute 0.07 0.00 - 0.60 x10E9/L 08/23/2024 10:03 AM [facility] Basophil Absolute 0.01 0.00 - 0.13 x10E9/L 08/23/2024 10:03 AM [facility] Blood BLOOD SPECIMEN / Unknown Venipuncture / Unknown 08/23/2024 9:40 AM COMMUNITY DEVELOPMENT MANAGER 08/23/2024 9:56 AM [facility] Hussain Carias MD LAB - HEMATOLOGY ORD ERABLES [facility] [address] [place] [address], [facility] [phone] documented in this encounter Visit Diagnoses Diagnosis 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
--- OUTSIDE RECORDS SUMMARY | 2024-08-31 21:25 | XMS_ITS | Encounter Summary ---
Author Organization [facility] Address [address] [place], [place] [address] [address] Care Team Providers Care Forensic Sergeant Name Role Phone Osmar Ragland MD Primary Care Provider +1 [phone] Encounter Details Date Type Department Care Team (Late st Contact Info) Description 06/22/2024 Telephone [facility] [address] [place] [address] Alyson Butcher, RN Social History Tobacco Use Types Packs/Day Years [...] Recorded Patient Health Questionnaire-2 Score 0 03/03/2024 [facility] [place] of Occupat ional Health - Occupational Stress [...] place to sleep or slept in a fci (including now)? No 01/19/2024 Sex and Gender [...] encounter Miscellaneous Notes * Telephone Encounter - Alyson Butcher, RN - 06/22/2024 12:36 PM CDT Mora called and stated my right knee hurts, States it's been hurting for a month and she has tried ice, heat, elevation, etc. Would like to get a knee x- ray when she comes in later this week. Willdiscuss with ABEL. documented in this encounter Plan of Treatment Upcoming Encounters Date Type Department Care Team (Late st Contact Info) Description 10/27/2024 10:30 AM REMOTE SENSING SCIENTIST Appointment [facility] [address] [place], [place] [phone] Hussain Carias MD [address] [place] [phone] Britni Winston, PA-C [address] [place], [place] [phone] 11/17/2024 9:00 AM REMOTE SENSING SCIENTIST Office Visit [facility] - Ophthalmology [address] [place] [phone] Song Hobson MD [address] [place] [address] [place] [phone] documented as of this encounter Visit Diagnoses Not on filedocumented in this encounter Care Teams Forensic Sergeant Relationship Specialty Start Date End Date Osmar Ragland MD [address] [place] [address] PCP - General Family Medicine 04/19/24 documented as of this encounter
--- OUTSIDE RECORDS SUMMARY | 2024-08-31 21:25 | XMS_ITS | Encounter Summary ---
Author Organization [facility] Address [address] [place] [address] [place] [address] Care Team Providers Care Tunnel Drier Operator Name Role Phone Osmar Ragland MD Primary Care Provider +1 [phone] Encounter Details Date Type Department Care Team (Latest Contact Info) Description 06/25/2024 Travel Social History Tobacco Use Types Packs/Day [...] Recorded Patient Health Questionnaire-2 Score 0 03/03/2024 [facility] [place] of Occupat ional Health - Occupational Stress [...] st Contact Info) Description 10/27/2024 10:30 AM PROFESSOR OF CRIMINAL JUSTICE Appointment [facility] [address] [place] [address] Hussain Carias MD [address] [place] [address] Britni Winston, PABaronC [address] [place] [address] 11/17/2024 9:00 AM PROFESSOR OF CRIMINAL JUSTICE Office Visit [facility] - Ophthalmology [address] [place] [phone] Song Hobson MD [address] [place] [address] DEPT [place] [phone] documented as of this encounter Visit Diagnoses Not on filedocumented in this encounter Care Teams Tunnel Drier Operator Relationship Specialty Start Date End Date Osmar Ragland MD [address] [place] [phone] PCP - General Family Medicine 04/19/24 documented as of this encounter
--- OUTSIDE RECORDS SUMMARY | 2024-08-31 21:25 | XMS_ITS | Encounter Summary ---
Author Organization [facility] Address [address] [place] [address] [place] [address] Care Team Providers Care Director Teen Post Name Role Phone Osmar Ragland MD Primary Care Provider +1 [phone] Encounter Details Date Type Department Care Team (Latest Contact Info) Description 08/23/2024 Travel Social History Tobacco Use Types Packs/Day Years Used Date Smoking Tobacco: Former Cigarettes 2010 Smokeless Tobacco: Never Alcohol Use Standard [...] Recorded Patient Health Questionnaire-2 Score 0 03/03/2024 [facility] [place] of Occupat ional Health - Occupational Stress [...] place to sleep or slept in a jail (including now)? No 01/19/2024 Sex and Gender [...] st Contact Info) Description 10/27/2024 10:30 AM [employer]ORAGE BATTERY INSPECTOR AND TESTER Appointment [facility] [address] [place] [address] Hussain Carias MD [address] [place] [phone] Britni Winston, PABaronC [address] [place] [address] 11/17/2024 9:00 AM STORAGE BATTERY INSPECTOR AND TESTER Office Visit [facility] - Ophthalmology [address] [place] [phone] Song Hobson MD [address] [place] [address] [place] [phone] documented as of this encounter Visit Diagnoses Not on filedocumented in this encounter Care Teams Director Teen Post Relationship Specialty Start Date End Date Osmar Ragland MD [address] [place] [phone] PCP - General Family Medicine 04/19/24 documented as of this encounter
--- OUTSIDE RECORDS SUMMARY | 2024-08-31 21:25 | XMS_ITS | Encounter Summary ---
Author Organization [facility] Address [address] [place], [place] [address] [address] Care Team Providers Care Financial Institution Treasurer Name Role Phone Nilam Mayers MD Primary Care Provider [phone]- [phone] Encounter Details Date Type Department Care Team (Late st Contact Info) Description 03/22/2024 Orders Only [facility] [address] [place] [address] Alyson Butcher, land degradation analyst myeloid leukemia in remission (HCC) Social History [...] Health Questionnaire-2 Score 0 03/03/2024 [facility] [place] of Occupat ional Health - Occupational Stress [...] place to sleep or slept in a group home (including now)? No 01/19/2024 Sex and [...] st Contact Info) Description 10/27/2024 10:30 AM ADMINISTRATIVE SUPPORT COORDINATOR Appointment [facility] [address] [place] [address] Hussain Carias MD [address] [place] [phone] Britni Winston PA-C [address] [place], [place] [phone] 11/17/2024 9:00 AM ADMINISTRATIVE SUPPORT COORDINATOR Office Visit [facility] - Ophthalmology [address] [facility], [place] [address] Song Hobson MD [facility] [place] [address] documented as of this encounter Results * (ABNORMAL) PHOSPHORUS BLOOD (04/30/2024 10:19 AM CDT) Phosphorus 2.8(L) 2.9 - 5.1 mg/dL 04/30/2024 10:58 AM CDT [facility] Blood BLOOD SPECIMEN / Unknown Venipuncture / Unknown 04/30/2024 10:19 AM CDT 04/30/2024 10:25 AM CDT Cori Hill APRN-COMPUTER SCIENCE TEACHER LAB - CHEMI STRY ORDERABLES [address] [address], [facility] [phone] * MAGNESIUM BLOOD (04/30/2024 10:19 AM CDT) Magnesium 2.1 1.6 - 2.6 mg/dL 04/30/2024 10:58 AM CDT [facility] Blood BLOOD SPECIMEN / Unknown Venipuncture / Unknown 04/30/2024 10:19 AM CDT 04/30/2024 10:25 AM CDT Cori Hill POLICY OFFICER-COMPUTER SCIENCE TEACHER LAB - CHEMI STRY ORDERABLES [address] [address] [phone] * (ABNORMAL) COMPREHENSIVE METABOLIC PANEL (04/30/2024 10:19 AM [facility]) BUN 16 7 - 26 mg/dL 04/30/2024 10:58 AM [facility] Creatinine 0.67 0.56 - 0.96 mg/dL 04/30/2024 10:58 AM [facility] Sodium 141 136 - 145 mmol/L 04/30/2024 10:58 AM [facility] Potassium 3.8 3.5 - 4.5 mmol/L 04/30/2024 10:58 AM [facility] Chloride 117(H) 98 - 107 mmol/L 04/30/2024 10:58 AM [facility] CO2 18(L) 22 - 29 mmol/L 04/30/2024 10:58 AM [facility] Glucose 130(H) 70 - 115 mg/dL 04/30/2024 10:58 AM [facility] Calcium 9.4 8.4 - 10.2 mg/dL 04/30/2024 10:58 AM [facility] Protein Total 7.3 6.0 - 8.3 g/dL 04/30/2024 10:58 AM [facility] Albumin 4.1 3.4 - 5.0 g/dL 04/30/2024 10:58 AM [facility] Bilirubin Total 0.2 0.2 - 1.2 mg/dL 04/30/2024 10:58 AM [facility] Alkaline Phosphatase 94 40 - 150 U/L 04/30/2024 10:58 AM [facility] ALT 12 5 - 55 U/L 04/30/2024 10:58 AM [facility] AST 12 5 - 34 U/L 04/30/2024 10:58 AM [facility] Anion Gap 6 6 - 16 04/30/2024 10:58 AM [facility] BUN/Creatinine Ratio 24(H) 7 - 23 04/30/2024 10:58 AM [facility] Osmolality Calculated 295 275 - 295 mOsm/kg 04/30/2024 10:58 AM [facility] Albumin/Globulin Ratio 1.3 1.1 - 2.3 04/30/2024 10:58 AM [facility] eGFR by CKD-EPI >90 >=90 mL/min/1.7 3 m2 04/30/2024 10:58 AM [facility] Blood BLOOD SPECIMEN / Unknown Venipuncture / Unknown 04/30/2024 10:19 AM CDT 04/30/2024 10:25 AM CDT Cori Hill POLICY OFFICER-COMPUTER SCIENCE TEACHER LAB - CHEMI STRY ORDERABLES [facility] [address] [place] [address], [facility] [phone] * (ABNORMAL) CBC WITH DIFFERENTIAL (04/30/2024 10:19 AM [facility]) WBC 5.7 4.0 - 10.7 x10E9/L 04/30/2024 10:42 AM [facility] RBC Count 3.62(L) 3.90 - 5.20 x10E12/L 04/30/2024 10:42 AM [facility] Hemoglobin 12.6 11.9 - 15.8 g/dL 04/30/2024 10:42 AM [facility] Hematocrit 37.6 34.8 - 46.1 % 04/30/2024 10:42 AM [facility] MCV 103.9(H) 80.0 - 98.0 fL 04/30/2024 10:42 AM [facility] MCH 34.8(H) 26.7 - 33.6 pg 04/30/2024 10:42 AM [facility] MCHC 33.5 31.7 - 36.3 g/dL 04/30/2024 10:42 AM [facility] RDW-CV 14.3 11.3 - 14.8 % 04/30/2024 10:42 AM [facility] Platelet Count 86(L) 150 - 420 x10E9/L 04/30/2024 10:42 AM [facility] MPV 10.8 7.8 - 11.4 fL 04/30/2024 10:42 AM [facility] Preliminary Absolute Neutrophil 3.79 1.60 - 7.50 x10E9/L 04/30/2024 10:42 AM [facility] Comment:Preliminary ANC pend ing manual confirmation Neutrophil % 66.4 41.0 - 74.0 % 04/30/2024 10:42 AM [facility] Lymphocyte % 19.8 17.0 - 47.0 % 04/30/2024 10:42 AM [facility] Monocyte % 12.5(H) 3.0 - 11.0 % 04/30/2024 10:42 AM [facility] Eosinophil % 0.9 0.0 - 7.0 % 04/30/2024 10:42 AM [facility] Basophil % 0.2 0.0 - 1.6 % 04/30/2024 10:42 AM [facility] Immature Granulocytes % 0.2 0.0 - 1.0 % 04/30/2024 10:42 AM [facility] Neutrophil Absolute 3.79 1.60 - 7.50 x10E9/L 04/30/2024 10:42 AM [facility] Lymphocyte Absolute 1.13 1.00 - 4.40 x10E9/L 04/30/2024 10:42 AM [facility] Monocyte Absolute 0.71 0.15 - 1.00 x10E9/L 04/30/2024 10:42 AM [facility] Eosinophil Absolute 0.05 0.00 - 0.60 x10E9/L 04/30/2024 10:42 AM [facility] Basophil Absolute 0.01 0.00 - 0.13 x10E9/L 04/30/2024 10:42 AM [facility] Blood BLOOD SPECIMEN / Unknown Venipuncture / Unknown 04/30/2024 10:19 AM CDT 04/30/2024 10:25 AM [facility] Cori Hill POLICY OFFICER-COMPUTER SCIENCE TEACHER LAB - HEMAT OLOGY ORDERABLES [facility] [address] [place] [address], [facility] [phone] documented in this encounter Visit Diagnoses Diagnosis 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
--- OUTSIDE RECORDS SUMMARY | 2024-08-31 21:25 | XMS_ITS | Encounter Summary ---
Author Organization [facility] Health Address [address] [place] [address] [place] [address] Care Team Providers Care Meat Grader Name Role Phone Osmar Ragland MD Primary Care Provider [phone] Encounter Details Date Type Department Care Team (Latest Contact Info) Description 05/20/2024 Travel Social History Tobacco Use Types Packs/Day [...] Health Questionnaire-2 Score 0 03/03/2024 [facility] [place] of Occupat ional Health - Occupational Stress [...] st Contact Info) Description 10/27/2024 10:30 AM PROJECT MANAGER RETAIL Appointment [facility] [address] [place] [address] Hussain Carias MD [address] [place] [address] Britni Winston, PABaronC [address] [place] [address] 11/17/2024 9:00 AM PROJECT MANAGER RETAIL Office Visit [facility] - Ophthalmology [address] [place] [phone] Song Hobson MD [address] [place] [address] [place] [phone] documented as of this encounter Visit Diagnoses Not on filedocumented in this encounter Care Teams Meat Grader Relationship Specialty Start Date End Date Osmar Ragland MD [address] [place] [phone] PCP - General Family Medicine 04/19/24 documented as of this encounter
--- OUTSIDE RECORDS SUMMARY | 2024-08-31 21:25 | XMS_ITS | Encounter Summary ---
Author Organization [facility] Address [address] [place], [place] [address] [address] Care Team Providers Care Revolving Inventory Clerk Name Role Phone Osmar Ragland MD Primary Care Provider [phone] Encounter Details Date Type Department Care Team (Latest Contact Info) Description 05/20/2024 9:20 AM CDT Clinical Support [facility] - Ophthalmology [address] [place] [phone] Sogn Hobson MD [address] [place] [address] [place] [address] IIH (idiopathic intracranial hypertension) (Primary [...] Recorded Patient Health Questionnaire-2 Score 0 03/03/2024 [facility] of Occupat ional Health - Occupational Stress [...] st Contact Info) Description 10/27/2024 10:30 AM MECHANICAL FIELD ENGINEER Appointment [facility] [address] [place] [address] Hussain Carias MD [address] [place] [phone] Britni Winston, PA-C [address] [place], [place] [phone] 11/17/2024 9:00 AM MECHANICAL FIELD ENGINEER Office Visit [facility] - Ophthalmology [address] [place] [address], [place] [address] Song Hobson MD [address] [place] [address] [place] [address] Pending Results Name Type Priority Associated Diagnoses Date /Time RETINAL ANALYSIS OCT Ophthalmology Routine IIH (idiopathic intracranial hypertension) 05/20/2024 9:17 AM CDT documented as of this encounter Visit Diagnoses Diagnosis IIH (idiopathic intracranial hypertension)- Primary Benign intracranial hypertension documented in this encounter Care Teams Revolving Inventory Clerk Relationship Specialty Start Date End Date Osmar Ragland MD [address] [place] [phone] PCP - General Family Medicine 04/19/24 documented as of this encounter
--- OUTSIDE RECORDS SUMMARY | 2024-08-31 21:25 | XMS_ITS ---
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 01/19/2024 Tachycardia 12/30/2023 Pseudotumor cerebri 12/06/2023 Hypernatremia 11/05/2023 Hypophosphatemia 11/05/2023 Anemia 11/04/2023 Vaginal bleeding 10/14/2023 IIH (idiopathic intracranial hypertension) 10/09 Acute hypoxic respiratory failure 09/27/2023 Pulmonary edema 09/27/2023 Pancytopenia due to chemotherapy 09/05/2023 Tonsillitis 09/05/2023 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 Current Oncology Plans INTRATHECAL CHEMO (METHOTREXATE OR CYTARABINE)* Plan Start Date:10/01/2023 Plan Provider:Remington Stafford MD Linked Problems Acute myeloid leukemia in re mission (HCC) Treatment Medications cytarabine (Cytosar)methotrexate intrathecal IP AML CONSOLIDATION - AGE <60 (HIGH DOSE CYTARABINE)(SANDHU HIDAC)* Plan Start Date:10/03/2023 Plan Provider:Remington Stafford MD Linked Problems Acute myeloid leukemia in re mission (HCC) Treatment Medications cytarabine (Cytosar) Infusion Other Current Plans MEDROXYPROGESTERONE (DEPO-PROVERA) THERAPY PLAN* Plan Start Date:10/14/2023 Plan Provider:Hussain Carias MD Linked Problems Vaginal bleeding Treatment Medications No medications scheduled. Past Plans ONCOLOGY TREATMENT Plan Name Start Date Discontinue Date Treatment Medications Discontinue Reason Plan Provider Cycles IP AML INDUCTION (IDARUBICIN CYTARABINE) (7+3) 09/06/20 23 10/02/2023 cytarabine (Cytosar) InfusionIDArubicin (Idamycin)rasburicas e (Elitek) custom in 50 mL bolus Therapy Complete Hussain Carias MD 1 of 1 cycle started Radiation Treatments * No radiation treatments are documented for this patient in [facility]. Treatments may have been administered in another system. Lifetime Dose Tracking * Chemical Lifetime Dose Automatic Entry Manual Entr y Idarubicin 35.526 mg/m2 (81 mg) 35.526 mg/m2 (81 mg) 0 mg/m2 (0 mg) Dose Length Product 4,625 mGy-cm 4,625 mGy-cm 0 mGy-cm Resolved Problems Problem Noted Date Diagnosed Date Resolved Date Febrile neutropenia 09/27/2023 10/11/19 24
--- OUTSIDE RECORDS SUMMARY | 2024-08-31 21:25 | XMS_ITS | Encounter Summary ---
Author Organization [facility] Address [address] [place] [address] [place] [address] Care Team Providers Care Inspector Tester Sorter Name Role Phone Nilam Mayers MD Primary Care Provider [phone]- [phone] Encounter Details Date Type Department Care Team (Latest Contact Info) Description 03/31/2024 Travel Social History Tobacco Use Types Packs/Day [...] Questionnaire-2 Score 0 03/03/2024 [facility] [place] of Occupat ional Health - Occupational Stress [...] st Contact Info) Description 10/27/2024 10:30 AM VICE PRESIDENT OF RECRUITING Appointment [facility] [address] [place] [address] Hussain Carias MD [address] [place] [address] Britni Winston, PABaronC [address] [place] [address] 11/17/2024 9:00 AM VICE PRESIDENT OF RECRUITING Office Visit [facility]5 [place] [phone] Song Hobson MD [address] [place] [address] [place] [phone] documented as of this encounter Visit Diagnoses Not on filedocumented in this encounter Care Teams Inspector Tester Sorter Relationship Specialty Start Date End Date Nilam Mayers MD [address] [place] [phone] PCP - General Family Medicine 09/04/23 04/18/24 documented as of this encounter
--- OUTSIDE RECORDS SUMMARY | 2024-08-31 21:25 | XMS_ITS | Encounter Summary ---
Author Organization [facility] Health Address [address] [place] [address] [place] [address] Care Team Providers Care Can Top Setter Name Role Phone Osmar Ragland MD Primary Care Provider [phone] Encounter Details Date Type Department Care Team (Latest Contact Info) Description 04/19/2024 Travel Social History Tobacco Use Types Packs/Day [...] Recorded Patient Health Questionnaire-2 Score 0 03/03/2024 [facility] [place] of Occupat ional Health - Occupational Stress [...] st Contact Info) Description 10/27/2024 10:30 AM MORTGAGE ASSISTANT Appointment [facility] [address] [place] [address] Hussain Carias MD [address] [place] [address] Britni Winston, PABaornC [address] [place] [address] 11/17/2024 9:00 AM MORTGAGE ASSISTANT Office Visit [facility] - Ophthalmology [address] [place] [phone] Song Hobson MD [address] [place] [address] [place] [phone] documented as of this encounter Visit Diagnoses Not on filedocumented in this encounter Care Teams Can Top Setter Relationship Specialty Start Date End Date Osmar Ragland MD [address] [place] [phone] PCP - General Family Medicine 04/19/24 documented as of this encounter
--- OUTSIDE RECORDS SUMMARY | 2024-08-31 21:25 | XMS_ITS | Encounter Summary ---
Author Organization [facility] Health Address [address] [place], [place] [address] [address] Care Team Providers Care Crusher Supervisor Name Role Phone Osmar Ragland MD Primary Care Provider [phone] Reason for Visit * Reason Onset Date Comments MEDICATION REFILL 06/01/2024 Encounter Details Date Type Department Care Team (Late st Contact Info) Description 06/01/2024 Refill [facility] [address] [place] [address] Britni Winston, PABaronC [address] [place], [place] [phone] MEDICATION REFILL Social History Tobacco Use Types Packs/Day Years Used Date Smoking Tobacco: Former Cigarettes 1 6 2 2010 Smokeless Tobacco: Never Alcohol Use [...] Recorded Patient Health Questionnaire-2 Score 0 03/03/2024 [facility] [place] of Occupat ional Health - Occupational Stress [...] encounter Miscellaneous Notes * Telephone Encounter - Britni Winston PA-C - 06/01/2024 8:32 AM CDT Called pt to inform her that we have sent an rx for folic acid 1mg tabs to be taken 1 tab PO QD, disp #90 [id number] sent to her local [facility] in [place]. Added this to help with platelet production. Pt did not answer, but left VM explaining the above and requesting CB if she has any other questions. Britni Winston PA-C Hematology, Blood & Marrow Transplant [facility] documented in this encounter Plan of Treatment Upcoming Encounters Date Type Department Care Team (Late st Contact Info) Description 10/27/2024 10:30 AM LAW OFFICE ASSISTANT Appointment [facility] [address] [place], [place] [phone] Hussain Carias MD [address] [place] [phone] Britni Winston PA-C [address] [place] [address] 11/17/2024 9:00 AM LAW OFFICE ASSISTANT Office Visit [facility] - Ophthalmology [address] [place] [phone] Song Hobson MD [address] [place] [address] [place] [address] documented as of this encounter Visit Diagnoses Not on filedocumented in this encounter Care Teams Crusher Supervisor Relationship Specialty Start Date End Date Osmar Ragland MD [address] [place] [phone] PCP - General Family Medicine 04/19/24 documented as of this encounter
--- OUTSIDE RECORDS SUMMARY | 2024-08-31 21:25 | XMS_ITS | Encounter Summary ---
Author Organization [facility] Address [address] [place], [place] [address] [address] Care Team Providers Care Pastry Sous Chef Name Role Phone Osmar Ragland MD Primary Care Provider [phone] Reason for Visit * Reason Comments Ultrasound Encounter Details Date Type Department Care Team (Latest Contact Info) Description 04/19/2024 12:00 PM CDT Procedure visit [facility] - SUPPLIES PACKER [address] [facility] [address] [place] [address] Dermoid cyst of left ovary ; Cyst of left ovary; Abnormal uterine bleeding (AUB); Hematometra Social History Tobacco Use Types Packs/Day Years [...] Recorded Patient Health Questionnaire-2 Score 0 03/03/2024 [facility] [place] of Occupat ional Health - Occupational Stress [...] place to sleep or slept in a longterm (including now)? No 01/19/2024 Sex and Gender [...] No 03/03/2024 documented as of this encounter Procedure Notes * Amy Mauricio - 04/19/2024 2:06 PM CDTAssociated Order(s): PROC US ECHOGRAPHY TRANSVAGINAL Procedure(s): NJ SONO EXAM, TRANSVAGINAL; NJ US PELVIC NONOB REAL-TIME IMG COMPLETE Pre-Procedure Diagnose(s): Dermoid cyst of left ovary; Abnormal uterine bleeding (AUB) Post-Procedure Diagnose(s): Dermoid cyst of left ovary; Abnormal uterine bleeding (AUB); Hematometra Documentation in digisonics. documented in this encounter Plan of Treatment Upcoming Encounters Date Type Department Care Team (Late st Contact Info) Description 10/27/2024 10:30 AM HEAD OF RESEARCH & INSIGHTS Appointment [facility] [address] [place] [address] Hussain Carias MD [address] [place] [phone] Britni Winston, PA-C [address] [place] [address] 11/17/2024 9:00 AM HEAD OF RESEARCH & INSIGHTS Office Visit [facility] - Ophthalmology [address] [place] [phone] Song Hobson MD [facility]5 [facility] [place] [phone] documented as of this encounter Procedures Procedure Name Priority Date/Time Associated Diagnosis Comments NJ US PELVIC NONOB REAL-TIME IMG COMPLETE Routine 04/19/2024 2:06 PM CDT Dermoid cyst of left ovary Abnormal uterine bleeding (AUB) Hematometra NJ SONO EXAM, TRANSVAGINAL Routine 04/19/2024 2:06 PM CDT Dermoid cyst of left ovary Abnormal uterine bleeding (AUB) Hematometra IMAGING/RADIOLOGY/XRA Y RESULTS ORDER 04/19/2024 IMAGING/RADIOLOGY/XRA Y RESULTS ORDER 04/19/2024 Dermoid cyst of left ovary Abnormal uterine bleeding (AUB) Hematometra documented in this encounter Results * NJ SONO EXAM, TRANSVAGINAL, NJ US PELVIC NONOB REAL-TIME IMG COMPLETE (04/19/2024 2:06 PM CDT) Narrative Amy Mauricio - 04/19/2024 2:06 PM CDT Amy Mauricio ? 04/19/2024 ??2:07 PM Documentation in digisonics. Thanh Green MD PROCEDURE/MINOR SURG ICAL ORDERABLES * IMAGING RADIOLOGY XRAY RESULTS ORDER (04/19/2024) Anatomical Region Laterality Modality Other Narrative 04/19/2024 Ordered by an unspecified provider. Scanned Document IMAGING * IMAGING RADIOLOGY XRAY RESULTS ORDER (04/19/2024) Anatomical Region Laterality Modality Other Narrative 04/19/2024 Ordered by an unspecified provider. Scanned Document IMAGING documented in this encounter Visit Diagnoses Diagnosis Dermoid cyst of left ovary- Primary Cyst of left ovary Other and unspecified ovarian cyst Abnormal uterine bleeding (AUB) Hematometra documented in this encounter Care Teams Pastry Sous Chef Relationship Specialty Start Date End Date Osmar Ragland MD [address] [place] [phone] PCP - General Family Medicine 04/19/24 documented as of this encounter
--- OUTSIDE RECORDS SUMMARY | 2024-08-31 21:25 | XMS_ITS | Encounter Summary ---
Author Organization [facility] Address [facility] [address] Care Team Providers Care Medicaid Billing Clerk Name Role Phone Osmar Ragland MD Primary Care Provider [phone] Reason for Visit * Reason Comments Follow-up Encounter Details Date Type Department Care Team (Late st Contact Info) Description 04/19/2024 10:45 AM CDT Office Visit [facility] - Ophthalmology [address] [place] [phone] Song Hobson MD [address] [place] [address] [place] [address] Papilledema associated with increased intracranial pressure (Primary Dx); Acute myeloid leukemia in remission (HCC) Social History [...] Recorded Patient Health Questionnaire-2 Score 0 03/03/2024 [facility] of Occupat ional Health - Occupational Stress [...] place to sleep or slept in a halfway (including now)? No 01/19/2024 Sex and Gender [...] as of this encounter Progress Notes * Nuria Tran DO - 04/19/2024 10:34 AM CDT Images from the original note were not included. Ophthalmology Office Note Comprehensive/C[facility] Subjective: Chief Complaint Patient presents with Follow-up Sarah Mckeon is a 38 year old female who presents for follow up visit re: papilledema/IIH Gtts: none Oral: Diamox 250 mg PO BID Denies floaters. Occasional flashes. Feels some pressure from the neck to rastafarian and occasionally into upper part of eyes. Past History: Past Medical History: Diagnosis Date [...] REMOVAL Family History Family history unknown: Yes Social History Smoking status: Former Packs/day: 1.00 Years: 0.00 Types: Cigarettes Start date: 2004 Quit date: 2010 Smokeless tobacco: Never Alcohol use: Yes Comment: occasional Drug use: Never Sexual activity: Yes Review of Systems (positives in bold) Constitutional: Chills, fever and weight loss. HENT: Ear discharge, hearing loss and tinnitus. Respiratory: Cough, hemoptysis and wheezing. Cardiovascular: Chest pain and palpitations. Gastrointestinal: Abdominal pain, nausea and vomiting. Genitourinary: Dysuria, frequency and urgency. Musculoskeletal: Back pain, falls and myalgias. Skin: Itching and rash. Neurological: Sensory change, speech change and focal weakness. Psychiatric/Behavioral: Hallucinations, substance abuse and suicidal ideas. Current Outpatient Medications Medication Sig Dispense Refill acetaZOLAMIDE (Diamox) 125 MG tablet Take 2 (two) tablets by mouth 2 times daily acetaZOLAMIDE (Diamox) 250 MG tablet Take 1 (one) tablet by mouth 2 times daily 60 tablet 0 Carboxymethylcellulose Sodium (ARTIFICIAL TEARS OP) famotidine (Pepcid) 20 MG tablet Take 1 (one) tablet by mouth 2 times daily 60 tablet 1 medroxyPROGESTERone (Depo-Provera) 150 MG/ML vial Inject 1 mL into muscle every 84 days (Patient not taking: Reported on 03/31/2024) multivitamin daily tablet Take 1 (one) tablet by mouth daily with food Womans multivitamin ondansetron (Zofran) 8 MG tablet Take one tablet by mouth twice a day 1 hour before midostaurin on days 8 to 21 and one tablet every 12 hours as needed for breakthrough nausea/vomiting. Reasons: Nausea and Vomiting caused by Cancer Chemotherapy (Patient not taking: Reported on 03/31/2024) 100 [id number] polyethylene glycol 3350 (Miralax) 17 g packet Take by mouth once daily posaconazole (Noxafil) 100 MG tablet Take 3 (three) tablets by mouth daily with dinner 90 tablet 5 prochlorperazine (Compazine) 10 MG tablet Take 1 (one) tablet by mouth every 8 hours as needed for Nausea/Vomiting valACYclovir (Valtrex) 500 MG tablet Take 1 (one) tablet by mouth 2 times daily 60 tablet 11 No current facility-administered medications for this visit. Allergies Allergen Reactions Vancomycin Itching Objective: Base Eye Exam Visual Acuity (Snellen - Linear) Right Left Dist sc 20/20 20/20 -1 Tonometry (Tonopen, 10:04 AM) Right Left Pressure 15 14 Pupils Pupils Dark Light Shape React APD Right PERRL 4 3 Round Brisk None Left PERRL 4 3 Round Brisk None Visual Hurt (Counting fingers) Left Right Full Full Extraocular Movement Right Left Full, Ortho Full, Ortho Neuro/Psych Oriented x3: Yes Mood/Affect: Normal Dilation Both eyes: 1.0% Mydriacyl, 2.5% Dar Synephrine @ 10:04 AM Additional Tests Color Right Left Ishihara 14/14 1414 Slit Lamp and Fundus Exam External Exam Right Left External Normal Normal Slit Lamp Exam Right Left Lids/Lashes Normal Normal Conjunctiva/Sclera White and quiet White and quiet Cornea Clear Clear Anterior Chamber Deep and quiet Deep and quiet Iris Round and pharm dilated Round and pharm dilated Lens Trace cortical changes Trace cortical changes Anterior Vitreous One spot of dehemoglobinized VH One spot of dehemoglobinized VH Fundus Exam Right Left Disc Grade 2 disc edema, no hemorrhages Lizzie 1 disc edema (mostly sup/inf poles), no hemorrhages C/D Ratio 0.05 0.05 Macula Normal Normal Vessels Mildly dilated and tortuous Mildly dilated and tortuous Periphery Normal Normal Study Findings 04/19/2024: [employer] AUT[employer] VISUAL FIELD EXTENDED HVF 24-2 size 3 with reliable field OD with enlarged blind spot (stable), reliable full field OS, foveal threshold (37 OD, 40 OS), VFI (99 OD, 100 OS), MD (-0.28 OD, -0.18 OS) RETINAL ANALYSIS OCT OCT nerve with avg RNFL 119 OD (improved from 193 previously), 116 OS (improved from 159 previously) Assessment/Plan: Sarah Mckeon is a 38 year old female Papilledema OU -- improving - Leukemic infiltrate [...] sinus thrombosis in their note. 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 Has appt with [facility] neuro-optometry in Sep 2024. Vitreous hemorrhage OU -- resolving, fully dehemoglobinized History of thrombocytopenia History of [...] follow up with retina PRN Plan: - Good response to Diamox, will continue 250mg BID - Return 1 month for color vision, HVF 24-2, OCT-H nerve, DFE Nuria Tran DO Ophthalmology Resident 04/19/2024 11:15 AM Associated attestation - Song Hobson MD - 04/19/2024 11:15 AM CDT I have examined the patient in [...] combined mechanism, H/O peripapillary hemorrhage, Thrombocytopenia: LP with opening pressure measured on 10/06/23 with 31 cm H2O measured, confirming increased ICP. Patient does report unilateral tinnitus/whooshing in left ear. Patient denies headaches, diplopia, TVOs. Acuity is good OU. Color Plates are normal OU. Review of Wilcox VF: date: pattern deviation, [...] OD, 97% OS), (-2.5 OD, -2.4 OS). 04/19/2024 (today): full hurt OU, fair reliability OD, good reliability OS. (37 OD, 40 OS), (99% OD, 100% OS), (-0.3 OD, -0.2 OS). Review of Jay Em OCT-Nerve/RNFL (central avg RNFL): 09/30/2023: 180 OD, 257 OS 10/02/2023: 175 OD, 165 OS 10/13/2023: 153 OD, 134 OS 03/02/2024: 193 OD, 159 OS 04/19/2024 (today): 119 OD, 116 OS. Summary: Patient is mildly symptomatic. Acuity is good OU and stable OU. Color Plates are normal OU. Visual hurt are full OU. Jay Em OCT-Nerve/RNFL is now normal OU, and improved since starting Diamox 250 mg PO BID. PLAN: - Continue Diamox 250 mg PO BID. - Refer patient to [facility] Neuro-Ophthalmology for further evaluation and assessment. - RTC 1 month, Jay Em OCT-Nerve/RNFL, HVF 24-2, DFE. H/O leukemic retinopathy OU: DFE shows resolved multilayered retinal hemorrhages, and resolved vitreous hemorrhages. Song Hobson MD, PhD Attending, Cornea and Anterior Segment Service Date of Service: 04/19/2024 documented in this encounter Plan of Treatment Upcoming Encounters Date Type Department Care Team (Late st Contact Info) Description 10/27/2024 10:30 AM ADMISSIONS RECRUITER Appointment [facility] [address] [place] [address] Hussain Carias MD [address] [place] [phone] Britni Winston PA-C [address] [place] [address] 11/17/2024 9:00 AM ADMISSIONS RECRUITER Office Visit [facility] - Ophthalmology [address] [place] [phone] Song Hobson MD [facility] DEPT [place] [address] Pending Results Name Type Priority Associated Diagnoses Date /Time RETINAL ANALYSIS OCT Ophthalmology Routine Papilledema associated with increased intracranial pressure 04/19/2024 9:31 AM CDT [employer] FIELD EXTENDED Ophthalmology Routine Papilledema associated with increased intracranial pressure 04/19/2024 9:31 AM CDT Scheduled Orders Name Type Priority Associated Diagnoses Orde r Schedule RETINAL ANALYSIS OCT Ophthalmology Routine Papilledema associated with increased intracranial pressure Expected: 04/19/2024, Expires: 06/19/2025 [employer] V[employer] FIELD EXTENDED Ophthalmology Routine Papilledema associated with increased intracranial pressure Expected: 04/19/2024, Expires: 06/19/2025 documented as of this encounter Visit Diagnoses Diagnosis Papilledema associated with increased intracranial pressure- Primary 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 documented in this encounter Care Teams Medicaid Billing Clerk Relationship Specialty Start Date End Date Osmar Ragland MD [address] [place] [phone] PCP - General Family Medicine 04/19/24 documented as of this encounter
--- OUTSIDE RECORDS SUMMARY | 2024-08-31 21:25 | XMS_ITS | Encounter Summary ---
Author Organization [facility] Address [address] [place], [place] [address] [address] Care Team Providers Care Assistant Producer Name Role Phone Osmar Ragland MD Primary Care Provider [phone]- [phone] Encounter Details Date Type Department Care Team (Latest Contact Info) Description 06/25/2024 12:35 PM CDT - 06/25/2024 11:59 PM CDT Hospital Encounter [facility] [address] [place] [address] Rossana Jay, WATCH ASSEMBLY INSTRUCTOR-[employer] SERGEANT [address] [place] [address] Discharge Disposition: Home or Self [...] Recorded Patient Health Questionnaire-2 Score 0 03/03/2024 [place] [place] of Occupat ional Health - Occupational Stress [...] st Contact Info) Description 10/27/2024 10:30 AM INSPECTOR BARREL Appointment [facility] [address] [place] [address] Hussain Carias MD [address] [place] [phone] Britni Winston, PA-C [address] [place] [address] 11/17/2024 9:00 AM INSPECTOR BARREL Office Visit [facility] - Ophthalmology [address] [place] [phone] Song Hobson MD [address] [place] [address] [place] [phone] documented as of this encounter Procedures Procedure Name Priority Date/Time Associated Diagnosis Comments XR KNEE RIGHT 3VW Routine 06/25/2024 12: 43 PM CDT Acute pain of right knee documented in this encounter Results * XR Knee Right 3Vw (06/25/2024 12:43 PM CDT) Anatomical Region Laterality Modality Lower Extremity Digital Radiogra phy 06/25/2024 3:49 PM CDT Impressions 06/28/2024 9:54 AM CDT IMPRESSION: No acute fracture or dislocation identified. Report dictated by Sivakumar Garrido DO (vice president of software engineering). Sergio Bartholomew MD have personally reviewed and interpreted [...] identified. Report dictated by Sivakumar Garrido DO (vice president of software engineering). Sergio Bartholomew MD have personally reviewed and interpreted this examination/study. > Interpreting Provider: Sergio Arango MD on 06/28/2024 9:54 AM Rossana Lama WATCH ASSEMBLY INSTRUCTOR-[employer] SERGEANT DIAGNOSTIC IMAGING O RDERABLES documented in this encounter Visit Diagnoses Diagnosis Acute pain of right knee documented in this encounter Care Teams Assistant Producer Relationship Specialty Start Date End Date Osmar Ragland MD [address] [place] [address] PCP - General Family Medicine 04/19/24 documented as of this encounter
--- OUTSIDE RECORDS SUMMARY | 2024-08-31 21:26 | XMS_ITS | Encounter Summary ---
Author Organization [facility] Address [address] [place] [address] [place] [address] Care Team Providers Care Anthropometrist Name Role Phone Nilam Mayers MD Primary Care Provider [phone]- [phone] Encounter Details Date Type Department Care Team (Latest Contact Info) Description 02/02/2024 Travel Social History Tobacco Use Types Packs/Day [...] and heating? Not hard at all 01/19/2024 [facility] [place] of Occupat ional Health - Occupational Stress [...] place to sleep or slept in a [facility] (including now)? No 01/19/2024 Sex and Gender Information Value Date Recorded Sex Assigned at Not on file Gender Identity Female 02/13/2024 1:12 PM CDT Sexual Orientation Not on file documented as of this encounter Functional Status Functional Status Response Date of Assess ment Is person deaf or have serious hearing difficult y? No 01/19/2024 Is person blind or have serious difficulty seein g? No 01/19/2024 Does person have serious dif ficulty walking/climbing stairs? No 01/19/2024 Does person have difficulty dressing/bathing? No 01/19/2024 Does person have difficulty doing errands alone? No 01/19/2024 Cognitive Status Response Date of Assessm ent Does person have difficulty concentrating/remembering/making decisions? No 01/19/2024 documented as of this encounter Plan of Treatment Upcoming Encounters Date Type Department Care Team (Late st Contact Info) Description 10/27/2024 10:30 AM WARRANT SERVER Appointment [facility] [address] [place] [address] Hussain Carias MD [address] [place] [address] Britni Winston, PABaronC [address] [place] [address] 11/17/2024 9:00 AM WARRANT SERVER Office Visit [facility] - Ophthalmology [address] [place] [phone] Song Hobson MD [address] [place] [address] [place] [phone] documented as of this encounter Visit Diagnoses Not on filedocumented in this encounter Care Teams Anthropometrist Relationship Specialty Start Date End Date Nilam Mayers MD [address] [place] [phone] PCP - General Family Medicine 09/04/23 04/18/24 documented as of this encounter
--- OUTSIDE RECORDS SUMMARY | 2024-08-31 21:26 | XMS_ITS | Encounter Summary ---
Author Organization [facility] Address [address] [place] [address] Care Team Providers Care Belt Maker Name Role Phone Nilam Mayers MD Primary Care Provider [phone]- [phone] Encounter Details Date Type Department Care Team (Latest Contact Info) Description 02/13/2024 9:41 AM CDT - 02/13/2024 11:59 PM T Hospital Encounter [facility] BMT CLINIC [address] [place] [address] Hussain Carias MD [address] [place] [address] Britni Winston, PABaronC [address] [place] [address] Juany Workman RN Discharge Disposition: Home or Self Care Social [...] and heating? Not hard at all 01/19/2024 [facility] of Occupat ional Health - Occupational Stress [...] place to sleep or slept in a intermediate (including now)? No 01/19/2024 Sex and Gender Information Value Date Recorded Sex Assigned at Not on file Gender Identity Female 02/13/2024 1:12 PM CDT Sexual Orientation Not on file documented as of this encounter Last Filed Vital Signs Vital Sign Reading Time Taken Comments Blood Pressure 124/72 02/13/2024 10:40 AM CDT Pulse 84 02/13/2024 10:40 AM CDT Temperature 36.5 ??C (97.7 ??F) 02/13/2024 1 0:40 AM CDT Respiratory Rate 20 02/13/2024 10:4 0 AM CDT Oxygen Saturation 100% 02/13/2024 10: 40 AM CDT Inhaled Oxygen Concentration - - Weight 108.5 kg (239 lb 4.8 oz) 024 10:40 AM CDT Height - - Body Mass Index 43.77 01/19/2024 4:24 PM CDT documented in this encounter Functional [...] No 01/19/2024 documented as of this encounter Medications at Time of Discharge Medication Sig Dispensed Refills Start Date End Date Carboxymethylcellulo se Sodium (ARTIFICIAL TEARS OP) famotidine (Pepcid) 20 MG tabletIndications:To nsillitis Take 1 (one) tablet by mouth 2 times daily 60 tablet 1 10/17/2023 ciprofloxacin (Cipro) 750 MG tablet TAKE ONE TABLET BY MOUTH EVERY 12 HOURS FOR 6 DAYS 12 tablet 01/23/2024 06/25/2024 dilTIAZem (Cardizem) injection APPLY TO AFFECTED AREA 2 TIMES A DAY 100 mL 1 01/23/2024 06/25/2024 dilTIAZem 1% CREA Apply to affected area 2 times daily 100 g 1 01/23/2024 03/31/2024 docusate sodium (Colace) 100 MG capsule TAKE ONE CAPSULE BY MOUTH ONCE DAILY NEEDED FOR CONSTIPATION 30 capsule 01/23/2024 02/16/2024 docusate sodium (Colace) 100 MG capsule Take [...] 01/23/2024 03/31/2024 posaconazole (Noxafil) 100 MG tabletIndications: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) Take 3 (three) tablets by mouth daily with dinner 90 tablet 5 12/15/2023 05/20/2024 potassium chloride ER 10 MEQ tablet Take 2 (two) tablets by mouth once daily 30 tablet 3 12/15/2023 03/02/2024 prochlorperazine (Compazine) 10 MG tablet Take 1 (one) tablet by mouth every 8 hours as needed for Nausea/Vomiting 04/30/2024 sennosides (Senokot) 8.6 MG tablet TAKE ONE TABLET BY MOUTH ONCE DAILY NEEDED FOR CONSTIPATION 30 tablet 01/23/2024 06/25/2024 valACYclovir (Valtrex) 500 MG tabletIndications: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 HEMATOLOGY/ONCOLOGY INPATIENT PROGRESS NOTE Name: Sarah Mckeon Age: [age] year old Date of : 1985 Date of Service: 02/13/2024 Reason for Consult: AML HEMATOLOGY & ONCOLOGY [...] in August of 2023 was admitted to [facility] c/o flu like symptoms and ultimately had marrow biopsy revealing 78% blasts on marrow and flow cytometry confirmed NPM1 mutation. Was sent to [facility] for AML. Completed 7 + 3 induction, cou nt recovery BMBx on 09/1723 confirmed remission. Has completed 2 consolidation therapies. 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 All have been worked up both in the inpatient and outpatient setting, well controlled on current medication regimen. Interval History: Presents to clinic s/p [address] for lab check. Reports a small floater to the peripheral vision of her right eye. Denies any floater in her left eye. It began this morning and has persisted since. Denies eye pain, blurred vision, or double vision. Denies headaches. Denies vaginal spotting. Denies bleeding anywhere. Denies fevers, chills, nausea, vomiting, diarrhea, [...] for dysuria, frequency, hematuria and urgency. Musculoskeletal: Negative for back pain and myalgias. Skin: Negative for rash. Neurological: Negative for dizziness, tingling and headaches. 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 Medications SCHEDULED MEDICATIONS: Current Outpatient Medications Medication Sig Carboxymethylcellulose Sodium (ARTIFICIAL TEARS OP) dilTIAZem 1% CREA Apply to affected area 2 times daily docusate sodium (Colace) 50 MG capsule Take 1 (one) capsule by mouth once daily as needed for Constipation famotidine (Pepcid) 20 MG tablet Take 1 (one) tablet by mouth 2 times daily medroxyPROGESTERone (Depo-Provera) 150 MG/ML vial Inject 1 mL into muscle every 84 days ondansetron (Zofran) 8 MG tablet Take one tablet by mouth twice a day 1 hour before midostaurin on days 8 to 21 and one tablet every 12 hours as needed for breakthrough nausea/vomiting. Reasons: Nausea and Vomiting caused by Cancer Chemotherapy oxyCODONE, immediate release, (Roxicodone) 5 MG tablet Take 1 (one) tablet by mouth every 6 hours as needed for Pain (Patient not taking: Reported on 01/30/2024) polyethylene glycol 3350 (Miralax) 17 GM/SCOOP powder Take 17 (seventeen) g by mouth once daily posaconazole (Noxafil) 100 MG tablet Take 3 (three) tablets by mouth daily with dinner potassium chloride ER 10 MEQ tablet Take 2 (two) tablets by mouth once daily prochlorperazine (Compazine) 10 MG tablet Take 1 (one) tablet by mouth every 8 hours as needed for Nausea/Vomiting (Patient not taking: Reported on 12/30/2023) valACYclovir (Valtrex) 500 MG tablet Take 1 (one) tablet by mouth 2 times daily No current facility-administered medications for this encounter. Allergies Allergies Allergen Reactions Vancomycin Itching OBJECTIVE Physical Exam Vitals: 02/13/24 1040 BP: 124/72 Pulse: 84 Resp: 20 Temp: 97.7 ??F SpO2: 100% Weight: 108.5 kg (239 lb 4.8 oz) Wt Readings from Last 3 Encounters: 02/13/24 108.5 kg (239 lb 4.8 oz) 02/10/24 108.1 kg (238 lb 6.4 oz) 02/06/24 109.6 kg (241 lb 9.6 oz) Karnofsky/ECO/0 General appearance - well-appearing, and in no distress Mental status - alert, oriented to person, place, and time Eyes - PERRL, EOMI, conjunctivae without redness Mouth - moist mucous membranes, no lesions to oropharynx seen on exam Chest - clear to auscultation b/l, no wheezes, rales or rhonchi, symmetric air entry Heart - normal rate, regular rhythm, no murmurs Abdomen - soft, nontender, nondistended, bowel sounds present Extremities - no pedal edema, no clubbing or cyanosis Skin - normal coloration and turgor, no rashes noted CVC - dressing dry and intact without redness, swelling, or stated tenderness Laboratory Results Recent Labs Component Name 02/13/24105602/10/24 0902/06/24 0958 WBC 5.3 4.8 4.1 RBC 2.84* 2.81* 2.36* HGB 8.7* 8.5* 7.0* HCT 25.9* 25.0* 20.6* MCV 91.2 89.0 87.3 MCHC 33.6 34.0 34.0 PLTCOUNT 45* 37* 33* NEUTPCT 62.8 57.8 54.9 LYMPHPCT 20.1 23.5 26.9 NEUTABS 3.31 2.78 2.22 LYMPHABS 1.06 1.13 1.09 BASOABS 0.01 0.00 0.00 Recent Labs Component Name 02/13/24105602/10/24 0929 02/06/24 0958 POTASSIUM 3.6 3.6 3.4* CO2 22 19* 21* BUN 6* 9 7 CREATININE 0.66 0.66 0.58 EGFR >90 >90 >90 GLUCOSE 190* 175* 156* CALCIUM 9.4 9.9 9.6 MAGNESIUM 2.0 2.0 1.9 PHOS 2.8* 3.4 2.8* ALT 25 22 24 AST 17 17 13 ALKPHOS 76 78 71 Recent Labs Component Name 02/13/24105602/10/24 0929 02/06/24 0958 MAGNESIUM 2.0 2.0 1.9 Recent Labs Component Name 02/13/24105602/10/24 0929 02/06/24 0958 PHOS 2.8* 3.4 2.8* Pathology Results RV (12/19/23): negative Radiology Results UE/LE dopplers (01/16/24): [...] substantially decreased from 09/28/2023. Findings could be sales representative door to door of small airways disease. Otherwise, no confluent [...] and molecular remission after 7+3 -Transferred from [facility] after a BMBX showed 78% blasts on [...] consolidation. No more IT treatment planned. - 02/13/24 labs reviewed. Hgb/plt stable and up trending. Electrolytes within normal limits. - Will complete NPM1 PCR mutation labs week of 03/21/24. General transfusion parameters (leukoreduced and irradiated blood [...] completing platelet transfusion to assess response. 2. 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 Plan: - Advised pt to call ophthalmology office today, 02/12, to report floaters and to schedule f/u with Dr. Hobson. Pt states she will call their office today. - Continues artificial tears PRN. 3. Vaginal Bleeding - CTM - Next medroxyprogesterone injection planned for 03/01/24. 4. Hx of elevated ICP - Symptom onset during admission, 10/07/23. LP at the time revealed elevated impending pressure, butmeningitis w/u was unrevealing. - Concerns for IIH previously. - Sx resolved as of 10/2023. - CTM 5. Anal pain, r/o anal fissure - Pt presented to clinic on 01/15 with acute anal pain, worsened significantly by 01/18. Pt was admitted as she was neutropenic and there were concerns for possible perianal abscess on exam. She was seenby surgery team and CT abd/pelvis with contrast showed perirectal fat stranding without associated fluid collections or abnormality of the rectum which likely represents infection/inflammation. - Surgery team, per exam, suspects anal fissure vs procititis. - Pt discharged to home 01/22 with Cipro/Flagyl x 6 days (EOT 01/30/24) oxycodone for pain management, and diltiazem and calmoseptine rectal creams. - Pt has reported complete resolution of sx since 01/26/24. - F/u with surgery on 02/26/24. 6. Ovarian mass, r/o teratoma - Incidental finding on 01/15 CT scan: 2.8 x 3.0 cm heterogenous mass within the left ovary containing areas of fat density and multiple calcified foci, will refer to gynecology. Discussed this with pton 01/28/24 (UPT neg 01/28/24). - F/u with [facility] on 03/03. PLAN: - S/p C4 [facility] consolidation - Advised pt to f/u with ophthalmology later today regarding floater to right eye. - Pt will follow up with [facility] for ovarian mass, repeat referral sent. - Once counts recover, plan to switch central line to PORT as pt is a very difficult stick and pt would prefer PORT. Scheduled for 03/03. - Labs reviewed. - Will complete NPM1 PCR mutation labs week of 03/21/24. DISPOSITION: RTC 02/20/24 for basics, ABEL visit The total time spent today in the visit with the patient, performing chart preparation, review of data, and documentation, not related to any procedure or preventative visit services was 25 minutes. Britni Winston PA-C Blood & Marrow Transplant [facility] documented in this encounter Plan of Treatment Upcoming Encounters Date Type Department Care Team (Late st Contact Info) Description 10/27/2024 10:30 AM CANNONEER Appointment [facility] BMT CLINIC [address] [place] [address] Hussain Carias MD [address] [place] [address] Britni Winston PA-C [address] [place] [address] 11/17/2024 9:00 AM CANNONEER Office Visit [facility] - Ophthalmology [address] [facility], [place] [phone] Song Hobson MD [address] [facility] [place] [address] documented as of this encounter Procedures Procedure Name Priority Date/Time Associated Diagnosis Comments URIC ACID BLOOD STAT 02/13/2024 10:57 AM CDT Acute myeloid leukemia in remission (HCC) SLIDE SCAN HEMATOLOGY STAT 02/13/2024 10:57 AM CDT Acute myeloid leukemia in remission (HCC) CBC W AUTO DIFFERENTIAL STAT 02/13/2024 10:57 AM CDT Acute myeloid leukemia in remission (HCC) COMPREHENSIVE METABOLIC PANEL STAT 02/13/2024 10:57 AM CDT Acute myeloid leukemia in remission (HCC) PHOSPHORUS BLOOD STAT 02/13/2024 10:5 7 AM CDT Acute myeloid leukemia in remission (HCC) MAGNESIUM BLOOD STAT 02/13/2024 10:57 AM CDT Acute myeloid leukemia in remission (HCC) LDH BLOOD STAT 02/13/2024 10:57 AM CDT Acute myeloid leukemia in remission (HCC) documented in this encounter Results * (ABNORMAL) SLIDE SCAN HEMATOLOGY (02/13/2024 10:57 AM CDT) RBC Morphology REVIEWED 02/13/2024 11:32 AM [facility] Microcytosis MODERATE(A) (none) 02/13/2024 11:32 AM [facility] Blood BLOOD SPECIMEN / Unknown Venipuncture / Unknown 02/13/2024 10:57 AM CDT 02/13/2024 11:05 AM CDT Britni Winston PA-C LAB - HEMATOLOGY ORD GELY Performing Organization Address [facility]/ZIP Co de Phone Number [address] [address], [place] [phone] * URIC ACID BLOOD (02/13/2024 10:57 AM CDT) Uric Acid 4.5 2.6 - 6.0 mg/dL 02/13/2024 11:42 AM CDT [facility] Blood BLOOD SPECIMEN / Unknown Venipuncture / Unknown 02/13/2024 10:57 AM CDT 02/13/2024 11:41 AM CDT Britni Winston PA-C LAB - CHEMISTRY JON NAIDU Performing Organization Address [facility]/ZIP Co de Phone Number [address] [address], [place] [phone] * LDH BLOOD (02/13/2024 10:57 AM CDT) Pathologist [facility] LDH Total 214 125 - 243 Units/L 02/13/2024 11:42 AM CDT [facility] Blood BLOOD SPECIMEN / Unknown Venipuncture / Unknown 02/13/2024 10:57 AM CDT 02/13/2024 11:41 AM CDT Britni Winston PA-C LAB - CHEMISTRY ORDAzul NAIDU Performing Organization Address [facility]/ZIP Co de Phone Number [address] [address], [place] [phone] * (ABNORMAL) CBC WITH DIFFERENTIAL (02/13/2024 10:57 AM CDT) WBC 5.3 4.0 - 10.7 x10E9/L 02/13/2024 11:32 AM CDT [facility] RBC Count 2.84(L) 3.90 - 5.20 x10E12/L 02/13/2024 11:32 AM [facility] Hemoglobin 8.7(L) 11.9 - 15.8 g/dL 02/13/2024 11:32 AM [facility] Hematocrit 25.9(L) 34.8 - 46.1 % 02/13/2024 11:32 AM [facility] MCV 91.2 80.0 - 98.0 fL 02/13/2024 11:32 AM [facility] MCH 30.6 26.7 - 33.6 pg 02/13/2024 11:32 AM [facility] MCHC 33.6 31.7 - 36.3 g/dL 02/13/2024 11:32 AM [facility] RDW-CV 22.8(H) 11.3 - 14.8 % 02/13/2024 11:32 AM [facility] Platelet Count 45(L) 150 - 420 x10E9/L 02/13/2024 11:32 AM [facility] MPV 11.2 7.8 - 11.4 fL 02/13/2024 11:32 AM [facility] Preliminary Absolute Neutrophil 3.31 1.60 - 7.50 x10E9/L 02/13/2024 11:32 AM [facility] Comment:Preliminary ANC pend ing manual confirmation Neutrophil % 62.8 41.0 - 74.0 % 02/13/2024 11:32 AM [facility] Lymphocyte % 20.1 17.0 - 47.0 % 02/13/2024 11:32 AM [facility] Monocyte % 15.2(H) 3.0 - 11.0 % 02/13/2024 11:32 AM [facility] Eosinophil % 0.6 0.0 - 7.0 % 02/13/2024 11:32 AM [facility] Basophil % 0.2 0.0 - 1.6 % 02/13/2024 11:32 AM [facility] Immature Granulocytes % 1.1(H) 0.0 - 1.0 % 02/13/2024 11:32 AM [facility] Neutrophil Absolute 3.31 1.60 - 7.50 x10E9/L 02/13/2024 11:32 AM CDT [facility] Lymphocyte Absolute 1.06 1.00 - 4.40 x10E9/L 02/13/2024 11:32 AM CDT [facility] Monocyte Absolute 0.80 0.15 - 1.00 x10E9/L 02/13/2024 11:32 AM T [facility] Eosinophil Absolute 0.03 0.00 - 0.60 x10E9/L 02/13/2024 11:32 AM T [facility] Basophil Absolute 0.01 0.00 - 0.13 x10E9/L 02/13/2024 11:32 AM [facility] NRBC 0.8(H) <=0.0 /100 WBC 02/13/2024 11:32 AM T [facility] Blood BLOOD SPECIMEN / Unknown Venipuncture / Unknown 02/13/2024 10:57 AM CDT 02/13/2024 11:05 AM CDT Britni Winston PA-C LAB - HEMATOLOGY ORD ERABLES [address] [address], [facility] [phone] * MAGNESIUM BLOOD (02/13/2024 10:57 AM CDT) Magnesium 2.0 1.6 - 2.6 mg/dL 02/13/2024 11:42 AM CDT [facility] Blood BLOOD SPECIMEN / Unknown Venipuncture / Unknown 02/13/2024 10:57 AM CDT 02/13/2024 11:41 AM CDT Britni Winston PA-C LAB - CHEMISTRY ORDE RABQI [address] [address], [facility] [phone] * (ABNORMAL) COMPREHENSIVE METABOLIC PANEL (02/13/2024 10:57 AM CDT) BUN 6(L) 7 - 26 mg/dL 02/13/2024 11:42 AM [facility] Creatinine 0.66 0.56 - 0.96 mg/dL 02/13/2024 11:42 AM [facility] Sodium 140 136 - 145 mmol/L 02/13/2024 11:42 AM [facility] Potassium 3.6 3.5 - 4.5 mmol/L 02/13/2024 11:42 AM [facility] Chloride 111(H) 98 - 107 mmol/L 02/13/2024 11:42 AM [facility] CO2 22 22 - 29 mmol/L 02/13/2024 11:42 AM [facility] Glucose 190(H) 70 - 115 mg/dL 02/13/2024 11:42 AM [facility] Calcium 9.4 8.4 - 10.2 mg/dL 02/13/2024 11:42 AM [facility] Protein Total 6.6 6.0 - 8.3 g/dL 02/13/2024 11:42 AM [facility] Albumin 3.4 3.4 - 5.0 g/dL 02/13/2024 11:42 AM [facility] Bilirubin Total 0.3 0.2 - 1.2 mg/dL 02/13/2024 11:42 AM [facility] Alkaline Phosphatase 76 40 - 150 U/L 02/13/2024 11:42 AM [facility] ALT 25 5 - 55 U/L 02/13/2024 11:42 AM [facility] AST 17 5 - 34 U/L 02/13/2024 11:42 AM [facility] Anion Gap 7 6 - 16 02/13/2024 11:42 AM [facility] BUN/Creatinine Ratio 9 7 - 23 02/13/2024 11:42 AM [facility] Osmolality Calculated 293 275 - 295 mOsm/kg 02/13/2024 11:42 AM [facility] Albumin/Globulin Ratio 1.1 1.1 - 2.3 02/13/2024 11:42 AM [facility] eGFR by CKD-EPI >90 >=90 mL/min/1.7 3 m2 02/13/2024 11:42 AM CDT [facility] Blood BLOOD SPECIMEN / Unknown Venipuncture / Unknown 02/13/2024 10:57 AM CDT 02/13/2024 11:41 AM CDT Britni Winston PA-C LAB - CHEMISTRY JON NAIDU Performing Organization Address City/[facility]/ZIP Co de Phone Number [address] [address], [facility] [phone] * (ABNORMAL) PHOSPHORUS BLOOD (02/13/2024 10:57 AM CDT) Phosphorus 2.8(L) 2.9 - 5.1 mg/dL 02/13/2024 11:42 AM CDT [facility] Blood BLOOD SPECIMEN / Unknown Venipuncture / Unknown 02/13/2024 10:57 AM CDT 02/13/2024 11:41 AM CDT Britni Winston PA-C LAB - CHEMISTRY JON NAIDU Performing Organization Address City/[facility]/ZIP Co de Phone Number [address] [address], [facility] [phone] documented in this encounter Visit Diagnoses Diagnosis 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 documented in this encounter Care Teams Belt Maker Relationship Specialty Start Date End Date Nilam Mayers MD [address] [place] [phone] PCP - General Family Medicine 09/04/23 04/18/24 documented as of this encounter
--- OUTSIDE RECORDS SUMMARY | 2024-08-31 21:26 | XMS_ITS | Encounter Summary ---
Author Organization [facility] Health Address [address] [place], [place] [address] [address] Care Team Providers Care Shoe Stitcher Name Role Phone Nilam Mayers MD Primary Care Provider [phone]- [phone] Reason for Visit * Reason Comments Mass Encounter Details Date Type Department Care Team (Late st Contact Info) Description 03/03/2024 2:20 PM CDT Office Visit [facility] - TOOL AND DIE MANAGER [address] [facility] [address] [place] [address] Thanh Green MD [address] [facility] [address] [place], [place] [id number] Cyst of left ovary (Primary Dx) Social History Tobacco Use Types [...] Recorded Patient Health Questionnaire-2 Score 0 03/03/2024 [facility] of Occupat ional Health - Occupational Stress [...] place to sleep or slept in a fdc (including now)? No 01/19/2024 Sex and Gender Information Value Date Recorded Sex Assigned at Not on file Gender Identity Female 02/13/2024 1:12 PM CDT Sexual Orientation Not on file documented as of this encounter Last Filed Vital Signs Vital Sign Reading Time Taken Comments Blood Pressure 130/78 03/03/2024 2:04 PM CDT Pulse - - Temperature - - Respiratory Rate - - Oxygen Saturation - - Inhaled Oxygen Concentration - - Weight 111.6 kg (246 lb) 03/03/2024 2:04 PM CDT Height 157.5 cm (5' 2 ) 03/03/2024 2:04 PM CDT Body Mass Index 44.99 03/03/2024 2:04 PM CDT documented in this [...] as of this encounter Progress Notes * Thanh Green MD - 03/03/2024 2:25 PM CDT Problem visit Pt here referred due to CT scan showing a 2x3cm left ovarian cyst consistent with a dermoid. She isasymptomatic. Is in remission from AML, port a cath just removed. Discussed findings and potential differential. We have agreed to do TVUS in 6 wks. If stable will continue to observe. documented in this encounter Plan of Treatment Upcoming Encounters Date Type Department Care Team (Late st Contact Info) Description 10/27/2024 10:30 AM POST CLOSING SPECIALIST Appointment [facility] BMT CLINIC [address] [place] [address] Hussain Carias MD [address] [place] [phone] Britni Winston, GERALDINE-C [address] [place] [address] 11/17/2024 9:00 AM POST CLOSING SPECIALIST Office Visit [facility] - Ophthalmology [address] [place] [address], [place] [phone] Song Hobson MD [address] [place] [address] DEPT [place] [address] documented as of this encounter Results * [place] SONO EXAM, TRANSVAGINAL, [place] US PELVIC NONOB REAL-TIME IMG COMPLETE (04/19/2024 2:06 PM CDT) Narrative SendAmy petersen - 04/19/2024 2:06 PM CDT Amy Mauricio ? 04/19/2024 ??2:07 PM Documentation in digisonics. Thanh Green MD PROCEDURE/MINOR SURG ICAL ORDERABLES documented in this encounter Visit Diagnoses Diagnosis Cyst of left ovary- Primary Other and unspecified ovarian cyst Dermoid cyst of left ovary- Primary Cyst of left ovary Other and unspecified ovarian cyst Abnormal uterine bleeding (AUB) Hematometra documented in this encounter Care Teams Shoe Stitcher Relationship Specialty Start Date End Date Nilam Mayers MD [address] [place] [phone] PCP - General Family Medicine 09/04/23 04/18/24 documented as of this encounter
--- OUTSIDE RECORDS SUMMARY | 2024-08-31 21:26 | XMS_ITS | Encounter Summary ---
Author Organization [facility] Address [address] [place], [place] [address] [address] Care Team Providers Care Business Applications Specialist Name Role Phone Nilam Mayers MD Primary Care Provider +1- [phone] Encounter Details Date Type Department Care Team (Late st Contact Info) Description 03/02/2024 Telephone [facility] [address] [place] [address] Alyson Butcher, RN Social History [...] Score 0 03/03/2024 [facility] [place] of Occupat ional Health - Occupational Stress [...] No 01/19/2024 documented as of this encounter Miscellaneous Notes * Telephone Encounter - Alyson Butcher, RN - 03/02/2024 3:58 PM CDT Mora called back and spoke with Dr. Carias and it was decided to go ahead and have her line removed. Will come back in 4 weeks for count check. Verbalized understanding. documented in this encounter Plan of Treatment Upcoming Encounters Date Type Department Care Team (Late st Contact Info) Description 10/27/2024 10:30 AM RESEARCH AND EVALUATION MANAGER Appointment [facility] [address] [place] [address] Hussain Carias MD [address] [place] [phone] Britni Winston, PA-C [address] [place] [address] 11/17/2024 9:00 AM RESEARCH AND EVALUATION MANAGER Office Visit [facility] - Ophthalmology [address] [place] [address], [place] [address] Song Hobson MD [address] [place] [address] [place] [address] documented as of this encounter Visit Diagnoses Not on filedocumented in this encounter Care Teams Business Applications Specialist Relationship Specialty Start Date End Date Nilam Mayers MD [facility] [place] [phone] PCP - General Family Medicine 09/04/23 04/18/24 documented as of this encounter
--- OUTSIDE RECORDS SUMMARY | 2024-08-31 21:26 | XMS_ITS | Encounter Summary ---
Author Organization [facility] Address [address] [place], [place] [address] [address] Care Team Providers Care Lithographic Plate Maker Name Role Phone Nilam Mayers MD Primary Care Provider +1- [phone] Encounter Details Date Type Department Care Team (Latest Contact Info) Description 03/02/2024 1:00 PM CDT Clinical Support [facility] - Ophthalmology [address] [place] [phone] Song Hobson MD [address] [place] [address] [place] [address] IIH (idiopathic intracranial hypertension) (Primary [...] Health Questionnaire-2 Score 0 03/03/2024 [place] of Occupat ional Health - Occupational Stress [...] st Contact Info) Description 10/27/2024 10:30 AM INDOOR LANDSCAPE ARCHITECT Appointment [facility] [address] [place] [address] Hussain Carias MD [address] [place] [phone] Britni Winston, PA-C [address] [place], [place] [phone] 11/17/2024 9:00 AM INDOOR LANDSCAPE ARCHITECT Office Visit [facility] - Ophthalmology [address] [place] [address], [place] [address] Song Hobson MD [address] [place] [address] DEPT [place] [phone] Pending Results Name Type Priority Associated Diagnoses Date /Time DOLL AUTO VISUAL FIELD EXTENDED Ophthalmology Routine IIH (idiopathic intracranial hypertension) 03/02/2024 12:52 PM CDT documented as of this encounter Visit Diagnoses Diagnosis IIH (idiopathic intracranial hypertension)- Primary Benign intracranial hypertension documented in this encounter Care Teams Lithographic Plate Maker Relationship Specialty Start Date End Date Nilam Mayers MD [address] [place] [phone] PCP - General Family Medicine 09/04/23 04/18/24 documented as of this encounter
--- OUTSIDE RECORDS SUMMARY | 2024-08-31 21:26 | XMS_ITS | Encounter Summary ---
Author Organization [facility] Address [address] [place] [address] [place] [address] Care Team Providers Care Industrial Health Engineer Name Role Phone Nilam Mayers MD Primary Care Provider +1- [phone] Encounter Details Date Type Department Care Team (Latest Contact Info) Description 01/28/2024 Travel Social History Tobacco Use Types Packs/Day [...] and heating? Not hard at all 01/19/2024 [facility] [place] of Occupat ional Health - Occupational Stress [...] place to sleep or slept in a prison (including now)? No 01/19/2024 Sex and Gender [...] st Contact Info) Description 10/27/2024 10:30 AM CUSTOMER SERVICE CASHIER Appointment [facility] [address] [place] [address] Hussain Carias MD [address] [place] [address] Britni Winston, PABaronC [address] [place] [address] 11/17/2024 9:00 AM CUSTOMER SERVICE CASHIER Office Visit [facility] - Ophthalmology [address] [place] [phone] Song Hobson MD [address] [place] [address] [place] [phone] documented as of this encounter Visit Diagnoses Not on filedocumented in this encounter Care Teams Industrial Health Engineer Relationship Specialty Start Date End Date Nilam Mayers MD [address] [place] [phone] PCP - General Family Medicine 09/04/23 04/18/24 documented as of this encounter
--- OUTSIDE RECORDS SUMMARY | 2024-08-31 21:26 | XMS_ITS | Encounter Summary ---
Author Organization [facility] Address [address] [place], [place] [address] [address] Care Team Providers Care Mine Analyst Name Role Phone Nilam Mayers MD Primary Care Provider +1- [phone] Encounter Details Date Type Department Care Team (Latest Contact Info) Description 03/02/2024 12:55 PM CDT Clinical Support [facility] - Ophthalmology [address] [place] [phone] Song Hobson MD [address] [place] [address] [place] [address] IIH (idiopathic intracranial hypertension) (Primary [...] Recorded Patient Health Questionnaire-2 Score 0 03/03/2024 [place] of Occupat ional Health - Occupational Stress [...] st Contact Info) Description 10/27/2024 10:30 AM RESPIRATORY SCIENTIST Appointment [facility] [address] [place] [address] Hussain Carias MD [address] [place] [phone] Britni Winston, PA-C [address] [place], [place] [phone] 11/17/2024 9:00 AM RESPIRATORY SCIENTIST Office Visit [facility] - Ophthalmology [address] [facility], [place] [address] Song Hobson MD [facility] [place] [address] documented as of this encounter Procedures Procedure Name Priority Date/Time Associated Diagnosis Comments RETINAL ANALYSIS OCT Routine 03/02/2024 12:52 PM CDT IIH (idiopathic intracranial hypertension) documented in this encounter Results * RETINAL ANALYSIS OCT (03/02/2024 12:52 PM CDT) Anatomical Region Laterality Modality Head External-Camera Photography Narrative 03/02/2024 2:12 PM CDT Images from the original result were not included. Song Hobson MD OPHTHALMOLOGY SCHED [place] [facility] documented in this encounter Visit Diagnoses Diagnosis IIH (idiopathic intracranial hypertension)- Primary Benign intracranial hypertension documented in this encounter Care Teams Mine Analyst Relationship Specialty Start Date End Date Nilam Mayers MD [address] [place] [phone] PCP - General Family Medicine 09/04/23 04/18/24 documented as of this encounter
--- OUTSIDE RECORDS SUMMARY | 2024-08-31 21:26 | XMS_ITS | Encounter Summary ---
Author Organization [facility] Address [address] [place], [place] [address] [address] Care Team Providers Care Soil Expert Name Role Phone Nilam Mayers MD Primary Care Provider +1- [phone] Reason for Visit * Reason Onset Date Comments Referral 03/03/2024 Encounter Details Date Type Department Care Team (Late st Contact Info) Description 03/03/2024 Telephone [facility] - Op[facility]mology [address] [place] [phone] Song Hobson MD [address] [place] [address] [place] [address] Referral Social History Tobacco Use [...] Recorded Patient Health Questionnaire-2 Score 0 03/03/2024 [place] of Occupat ional Health - Occupational Stress [...] * Telephone Encounter - Vicki Briseno - 03/03/2024 10:22 AM CDT Securely emailed exam notes/referral to Bety @ [facility]. She will be reaching out to schedule a neuro oph eval. documented in this encounter Plan of Treatment Upcoming Encounters Date Type Department Care Team (Late st Contact Info) Description 10/27/2024 10:30 AM CHIEF PILOT Appointment [facility] [address] [place] [address] Hussain Carias MD [address] [place] [phone] Britni Winston, PA-C [facility] [place], [place] [phone] 11/17/2024 9:00 AM CHIEF PILOT Office Visit [facility] - Ophthalmology [address] [place] [phone] Song Hobson MD [address] [place] [address] [place] [address] documented as of this encounter Visit Diagnoses Not on filedocumented in this encounter Care Teams Soil Expert Relationship Specialty Start Date End Date Nilam Mayers MD [address] [place] [phone] PCP - General Family Medicine 09/04/23 04/18/24 documented as of this encounter
--- OUTSIDE RECORDS SUMMARY | 2024-08-31 21:26 | XMS_ITS | Encounter Summary ---
Author Organization [facility] Address [facility] [place] [address] Care Team Providers Care Planning Coordinator Name Role Phone Nilam Mayers MD Primary Care Provider +1- [phone] Reason for Referral * Radiology Services (Routine) - Closed Specialty Diagnoses / Procedures Referred By Contac t Referred To Contact Interventional Radiology Diagnoses Acute myeloid leukemia in remission (HCC) Procedures IR CENTRAL LINE REMOVAL Britni Winston PA-C [address] [place] [address] [facility] [address] [place] [address] Referral ID Status Reason Start Date Expiration Date Visits Re quested Visits Authorized [id number] Closed 02/02/2024 02/01/2025 1 1 Encounter Details Date Type Department Care Team (Late st Contact Info) Description 02/02/2024 Orders Only [facility] [address] [place] [address] Alyson Butcher, javascript ui developer myeloid leukemia in remission (HCC) Social History [...] and heating? Not hard at all 01/19/2024 [facility] of Occupat ional Health - Occupational Stress [...] st Contact Info) Description 10/27/2024 10:30 AM NURSE CHEMICAL DEPENDENCY Appointment [facility] [address] [place] [address] Hussain Carias MD [address] [place] [phone] Britni Winston, PA-C [address] [place], [place] [phone] 11/17/2024 9:00 AM NURSE CHEMICAL DEPENDENCY Office Visit [facility] - Ophthalmology [address] [place] [address], [place] [phone] Song Hobson MD [address] [place] [address] [place] [address] documented as of this encounter Results * IR CENTRAL LINE REMOVAL (03/03/2024 10:56 [...] myeloid leukemia in remission (HCC) Additional History: Automotive Sales Representative: Maria G Mortensen MD COMPARISON: None. FLUOROSCOPY DOSE: Reference air kerma (ka,r). FINDINGS: Following informed consent the patient was taken to the angiography suite where they were noted to have a Right ??internal jugular tunneled central venous catheter. Accounting Generalist film with the existing catheter was obtained. [...] myeloid leukemia in remission (HCC) Additional History: Automotive Sales Representative: Maria G Mortensen MD COMPARISON: None. FLUOROSCOPY DOSE: Reference air kerma (ka,r). FINDINGS: Following informed consent the patient was taken to the angiographysuite where they were noted to have a Right internal jugular tunneled central venous catheter. 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
--- OUTSIDE RECORDS SUMMARY | 2024-08-31 21:26 | XMS_ITS | Encounter Summary ---
Author Organization [facility] Address [address] [place] [address] Care Team Providers Care Publishing Agent Name Role Phone Nilam Mayers MD Primary Care Provider [phone]- [phone] Reason for Referral * Evaluate (Routine) - Closed Specialty Diagnoses / Procedures Referred By Contac t Referred To Contact Obstetrics and Gynecology Diagnoses Ovarian mass Britni Winston PA-C [address] [place] [address] [facility] [address] [facility] [address] [place] [address] Referral ID Status Reason Start Date Expiration Date V isits Requested Visits Authorized [id number] Closed Specialty Services Required 01/28/2024 01/27/2025 1 1 Encounter Details Date Type Department Care Team (Latest Contact Info) Description 01/28/2024 9:20 AM CDT - 01/28/2024 11:59 PM CDT Hospital Encounter [facility] [address] [place] [address] Hussain Carias MD [address] [place] [address] Britni Winston PA-C [address] [place] [address] Discharge Disposition: Home or Self [...] and heating? Not hard at all 01/19/2024 [facility] of Occupat ional Health - Occupational Stress [...] Sign Reading Time Taken Comments Blood Pressure 126/82 01/28/2024 11:05 AM CDT Pulse 94 01/28/2024 11:05 AM CDT Temperature 36.6 ??C (97.9 ??F) 01/28/2024 11:05 AM C DT Respiratory Rate 18 01/28/2024 11:05 AM CDT Oxygen Saturation 100% 01/28/2024 11:05 AM CDT Inhaled Oxygen Concentration - - Weight 108.9 kg (240 lb) 01/28/2024 9:37 AM CDT Height - - Body Mass Index 43.9 01/19/2024 4:24 PM CDT documented in this [...] FOR 6 DAYS 12 tablet 01/23/2024 06/25/2024 diazePAM (Valium) 5 MG tablet Take 1 (one) tablet by mouth 3 times daily as needed 30 tablet 01/23/2024 02/06/2024 dilTIAZem (Cardizem) injection APPLY TO AFFECTED AREA [...] capsule by mouth once daily 01/23/2024 03/31/2024 docusate sodium (Colace) 50 MG capsule Take 1 (one) capsule by mouth once daily as needed for Constipation 30 capsule 01/23/2024 02/13/2024 medroxyPROGESTERone (Depo-Provera) 150 MG/ML vial Inject 1 mL into muscle every 84 days 10/14/2023 04/30/2024 menthol-zinc oxide (Calmoseptine) 0.44-20.6 % ointment Apply to affected area 3 times daily as needed for Other (Apply to perirectal area TID as needed for rectal pain) 113 g 01/16/2024 02/06/2024 metroNIDAZOLE (Flagyl) 500 MG tablet TAKE ONE [...] Cancer Chemotherapy 100 tablet 11 12/01/2023 04/30/2024 oxyCODONE, immediate release, (Roxicodone) 5 MG tabletIndications:An al or rectal pain Take 1 (one) tablet by mouth every 6 hours as needed for Pain 8 tablet 01/23/2024 02/13/2024 polyethylene glycol 3350 (Miralax) 17 GM/SCOOP powder Take 17 (seventeen) g by mouth once daily 238 g 01/23/2024 03/31/2024 posaconazole (Noxafil) 100 MG tabletIndications:[place] myeloid leukemia in remission (HCC) Take 3 [...] 01/23/2024 06/25/2024 valACYclovir (Valtrex) 500 MG tabletIndications:[place] myeloid leukemia in remission (HCC) Take 1 (one) tablet by mouth 2 times daily 60 tablet 11 11/03/2023 08/23/2024 Witch Jaclyn (Hemorrhoidal Hygiene) 50 % 1 Pad by Apply externally route as needed 100 Each 1 01/14/2024 02/06/2024 documented as of this encounter Progress Notes * Mary Jordan RN - 01/28/2024 11:11 AM CDT Patient received 1 unit of platelets, tolerated well, no signs of adverse reactions transfusion started at protocol infusion rate 120 mL/hr increase after 15 minutes to 600 mL/hr. Transfusion completed tolerated well will draw post platelet lab per policy no additional complaints noted. * Britni Winston PA-C - 01/28/2024 8:57 AM CDT Images from the original note were not included. HEMATOLOGY/ONCOLOGY INPATIENT PROGRESS NOTE Name: Sarah Mckeon Age: [age] year old Date of : 1985 Date of Service: 01/28/2024 Reason for Consult: AML HEMATOLOGY & ONCOLOGY [...] in August of 2023 was admitted to [facility] c/o flu like symptoms and ultimately had marrow biopsy revealing 78% blasts on marrow and flow cytometry confirmed NPM1 mutation. Was sent to [facility] for AML. Completed 7 + 3 induction, co unt recovery BMBx on 09/1723 confirmed remission. Has completed 2 consolidation therapies. 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 All have been worked up bothin the inpatient and outpatient setting, well controlled on current medication regimen. Interval History: C4D30 HiDAC Pt was admitted to the hospital 01/18 for worsening perianal pain. While in the hospital, surgery wasconsulted and repeat CTs were completed but no abscess was found. Pain thought to be 2/2 anal fissure. Pt presents to clinic today, 01/27, for hospital f/u visit. Pt reports her rectal pain has been completely resolved since 01/25. She has not taken any pain medications since 01/25. Reports vaginal spotting today, small amount, not requiring a pad. Denies any nosebleeds in the past week. Denies fevers, chills, nausea, vomiting, diarrhea, or constipation. Overall, Mora reports she feels much better today. ANC 650 VSS Review of Systems: Review of Systems Constitutional: Negative for chills, fever, malaise/fatigue and weight loss. HENT: Negative for congestion and sore throat. Eyes: Negative for blurred vision and double vision. Respiratory: Negative for cough and shortness of breath. Cardiovascular: Negative for chest pain. Gastrointestinal: Negative for abdominal pain, blood in stool, constipation, diarrhea, melena, nausea and vomiting. Genitourinary: Negative for dysuria, frequency, hematuria and urgency. Intermittent and infrequent vaginal bleeding Musculoskeletal: Negative for back pain and myalgias. Skin: Negative for rash. Neurological: Negative for dizziness, tingling and headaches. 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) 09/06/2023 - Chemotherapy cytarabine (Cytosar) 460 mg [...] Active Treatment Days for Sarah Mckeon (until 01/29/2024) There are no remaining days before 01/29/2024. Medications SCHEDULED MEDICATIONS: Current Outpatient Medications Medication Sig Carboxymethylcellulose Sodium (ARTIFICIAL TEARS OP) ciprofloxacin (Cipro) 750 MG tablet Take 1 (one) tablet by mouth every 12 hours for 6 days diazePAM (Valium) 5 MG tablet Take 1 (one) tablet by mouth 3 times daily as needed dilTIAZem 1% CREA Apply to affected area 2 times daily docusate sodium (Colace) 50 MG capsule Take 1 (one) capsule by mouth once daily as needed for Constipation famotidine (Pepcid) 20 MG tablet Take 1 (one) tablet by mouth 2 times daily medroxyPROGESTERone (Depo-Provera) 150 MG/ML vial Inject 1 mL into muscle every 84 days menthol-zinc oxide (Calmoseptine) 0.44-20.6 % ointment Apply to affected area 3 times daily as needed for Other (Apply to perirectal area TID as needed for rectal pain) metroNIDAZOLE (Flagyl) 500 MG tablet Take 1 (one) tablet by mouth every 8 hours for 6 days ondansetron (Zofran) 8 MG tablet Take one tablet by mouth twice a day 1 hour before midostaurin on days 8 to 21 and one tablet every 12 hours as needed for breakthrough nausea/vomiting. Reasons: Nausea and Vomiting caused by Cancer Chemotherapy (Patient not taking: Reported on 01/07/2024) oxyCODONE, immediate release, (Roxicodone) 5 MG tablet Take 1 (one) tablet by mouth every 6 hours as needed for Pain polyethylene glycol 3350 (Miralax) 17 GM/SCOOP powder [...] Nausea/Vomiting (Patient not taking: Reported on 12/30/2023) senna (Senokot) 8.6 MG tablet Take 1 (one) tablet by mouth once daily as needed for Constipation valACYclovir (Valtrex) 500 MG tablet Take 1 (one) tablet by mouth 2 times daily Shae Anaya (Hemorrhoidal Hygiene) 50 % 1 Pad by Apply externally route as needed No current facility-administered medications for this encounter. Allergies Allergies Allergen Reactions Vancomycin Itching OBJECTIVE Physical Exam There were no vitals filed for this visit. Wt Readings from Last 3 Encounters: 01/26/24 109.6 kg (241 lb 11.2 oz) 01/22/24 109.8 kg (242 lb 0.2 oz) 01/19/24 108.9 kg (240 lb 1.6 oz) Karnofsky/ECO/0 General appearance - well-appearing, and [...] tenderness Laboratory Results Recent Labs Component Name 01/26/24 1439 01/26/24 1239 01/23/24 0039 01/22/24 1804 01/22/24 0017 01/03/248 01/02/24205101/01/24211712/31/232053 WBC - 3.5* 4.6 4.3 2.4* - 2.9* 3.6* 5.1 RBC - 2.70* 2.67* 2.85* 2.58* - 2.63* 2.80* 2.31* HGB - 7.9* 7.8* 8.2* 7.4* - 7.4* 7.9* 6.6* HCT - 21.9* 21.4* 22.7* 20.7* - 21.1* 22.4* 19.1* MCV - 81.1 80.1 79.6* 80.2 - 80.2 80.0 82.7 MCHC - 36.1 36.4* 36.1 35.7 - 35.1 35.3 34.6 PLTCOUNT 40* 12* 32* 42* 15* - 25* 32* 41* NEUTPCT - - - - - - 84.4* 87.5* 71.4 LYMPHPCT - - - - - - 11.4* 7.2* 10.0* NEUTABS - 0.67* 0.67* 1.25* 1.15* - 0.36* 0.79* - 2.44 3.14 3.66 LYMPHABS - 1.86 2.02 - 0.89* - 0.33* 0.26* 0.51* BASOABS - - - - - - 0.00 0.00 0.00 - = values in this interval not displayed. Recent Labs Component Name 01/26/24123801/23/243801/22/24 0017 01/19/24 1713 01/19/24 0921 01/16/24 1028 POTASSIUM 3.4* 3.3* 3.4* - 4.0 3.8 CO2 21* 22 22 - 20* 19* BUN 9 6* 6* - 10 8 CREATININE 0.58 0.61 0.61 - 0.66 0.63 EGFR >90 >90 >90 - >90 >90 GLUCOSE 155* 97 123* - 201* 181* CALCIUM 9.5 9.4 9.2 - 9.8 9.7 MAGNESIUM 1.8 1.8 1.8 - 1.8 1.8 PHOS 2.4* 3.2 3.6 - 2.6* 3.2 ALT 57* - - - 14 21 AST 48* - - - 9 11 ALKPHOS 66 - - - 69 82 - = values in this interval not displayed. Recent Labs Component Name 01/26/24123801/23/249 01/22/24 0017 MAGNESIUM 1.8 1.8 1.8 Recent Labs Component Name 01/26/24123801/23/243801/22/24 0017 PHOS 2.4* 3.2 3.6 Pathology Results RVP (12/19/23): negative Radiology Results [...] substantially decreased from 09/28/2023. Findings could be digital media representative of small airways disease. Otherwise, no [...] and molecular remission after 7+3 -Transferred from [facility] after a BMBX showed 78% [...] consolidation. No more IT treatment planned. - 01/28/24 labs reviewed. Hgb stable, plts 30. ANC now recovered. One unit plt given for plt 30 in setting of intermittent vaginal bleeding. General transfusion parameters (leukoreduced and irradiated blood [...] completing platelet transfusion to assess response. 2. 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 Plan: - Continues OP ophtho f/u with Dr. Hobson. - Continues artificial tears PRN. 3. Vaginal Bleeding - Medroxyprogesterone pill discontinued 2/2 concern for IIH. Confirmed with patient that she is nottaking it. - CTM - Next medroxyprogesterone injection planned for 02/06/24. 4. Hx of elevated ICP - Symptom [...] Discussed this with pton 01/28/24 (UPT neg 01/28/24), pt would like to follow up with her local OCCUPATIONAL THERAPY AIDE and states she will schedule this appointment. PLAN: - C4D30 HiDAC consolidation - New MedActionPlan provided to and reviewed with patient today 01/28/24. - Labs reviewed; Hgb stable, plts 30 >> 64. ANC now recovered. One unit plt given for plt 30 in setting of intermittent vaginal bleeding. DISPOSITION: RTC 01/30/24 and 02/02/24 for basics, T&S, ? Transfusions, and on 02/06/24 for basics, T&S, ? Transfusions, ABEL visit, and depo shot The total time spent today in the visit with the patient, performing chart preparation, review of data, and documentation, not related to any procedure or preventative visit services was 35 minutes. Britni Winston PA-C Blood & Marrow Transplant [facility] documented in this encounter Plan of Treatment Upcoming Encounters Date Type Department Care Team (Late st Contact Info) Description 10/27/2024 10:30 AM TALENT DEVELOPMENT COORDINATOR Appointment [facility] [address] [place] [address] Hussain Carias MD [address] [place] [address] Britni Winston PA-C [address] [place] [address] 11/17/2024 9:00 AM TALENT DEVELOPMENT COORDINATOR Office Visit [facility] - Ophthalmology [address] [facility], [place] [phone] Song Hobson MD [address] [facility] [place]PT [place] [address] Pending Results Name Type Priority Associated Diagnoses Date /Time PREPARE PLATELET PHERESIS UNIT(S), 1 Units Blood Bank Routine 01/28/2024 9:58 AM CDT Scheduled Referrals Name Type Priority Associated Diagnoses Order Schedule Ref to OBMEGANN - Fiordaliza 400 Outpatient Referral Routine Ovarian mass 1 Occurrences starting 01/28/2024 until 01/27/2025 documented as of this encounter Procedures Procedure Name Priority Date/Time Associated Diagnosis Comments PLATELET COUNT AUTO STAT 01/28/2024 1 1:17 AM CDT Acute myeloid leukemia in remission (HCC) Ovarian mass TRANSFUSE PLATELET PHERESIS UNIT(S) Routine 01/28/2024 10:14 AM CDT HCG URINE QUALITATIVE Routine 01/28/2024 10:03 AM CDT Acute myeloid leukemia in remission (HCC) PREPARE PLATELET PHERESIS UNIT(S) Routine 01/28/2024 9:58 AM CDT URIC ACID BLOOD STAT 01/28/2024 9:44 AM CDT Acute myeloid leukemia in remission (HCC) TYPE + SCREEN PANEL STAT 01/28/2024 9 :44 AM CDT Acute myeloid leukemia in remission (HCC) DIFFERENTIAL MANUAL STAT 01/28/2024 9 :44 AM CDT Acute myeloid leukemia in remission (HCC) CBC W AUTO DIFFERENTIAL STAT 01/28/2024 9:44 AM CDT Acute myeloid leukemia in remission (HCC) COMPREHENSIVE METABOLIC PANEL STAT 01/28/2024 9:44 AM CDT Acute myeloid leukemia in remission (HCC) PHOSPHORUS BLOOD STAT 01/28/2024 9:44 AM CDT Acute myeloid leukemia in remission (HCC) MAGNESIUM BLOOD STAT 01/28/2024 9:44 AM CDT Acute myeloid leukemia in remission (HCC) LDH BLOOD STAT 01/28/2024 9:44 AM CDT Acute myeloid leukemia in remission (HCC) documented in this encounter Results * (ABNORMAL) PLATELET COUNT AUTO (01/28/2024 11:17 AM CDT) Platelet Count 64(L) 150 - 420 x10E9/L 01/28/2024 11:41 AM CDT [facility] Blood BLOOD SPECIMEN / Unknown Line Draw / Unknown 01/28/2024 11:17 AM CDT 01/28/2024 11:29 AM CDT Britni Winston PA-C LAB - HEMATOLOGY ORD ERABLES [address] [address], [facility] [phone] * TRANSFUSE PLATELET PHERESIS UNIT(S) (01/28/2024 11:08 AM CDT) Britni Winston PA-C NURSING - BLOOD PROD TRANSFUSION * TRANSFUSE PLATELET PHERESIS UNIT(S), 1 Units (01/28/2024 11:08 AM CDT) Britni Winston PA-C NURSING - BLOOD PROD TRANSFUSION * HCG URINE QUALITATIVE (01/28/2024 10:03 AM CDT) Test Urine Negative Negative 01/28/2024 10:28 AM CDT [facility] Urine URINE / Unknown Collection / Unknown 01/28/2024 10:03 AM CDT 01/28/2024 10:08 AM CDT Britni Winston PA-C LAB - URINALYSIS ORD ERABLES [facility] [address] [place] [address], [facility] [phone] * (ABNORMAL) DIFFERENTIAL MANUAL (01/28/2024 9:44 AM CDT) Neutrophil % 28(L) 41 - 74 % 01/28/2024 10:56 AM CDT [facility] Lymphocyte % 54(H) 17 - 47 % 01/28/2024 10:56 AM CDT [facility] Monocyte % 16(H) 3 - 11 % 01/28/2024 10:56 AM CDT [facility] Myelocyte % 2(H) 0% % 01/28/2024 10:56 AM T [facility] Neutrophil Absolute 0.87(L) 1.60 - 7.50 x10E9/L 01/28/2024 10:56 AM T [facility] Lymphocyte Absolute 1.67 1.00 - 4.40 x10E9/L 01/28/2024 10:56 AM CDT [facility] Monocyte Absolute 0.50 0.15 - 1.00 x10E9/L 01/28/2024 10:56 AM T [facility] RBC Morphology REVIEWED 01/28/2024 10:56 AM [facility] Microcytosis MANY(A) (none) 01/28/2024 10:56 AM [facility] Blood BLOOD SPECIMEN / Unknown Venipuncture / Unknown 01/28/2024 9:44 AM CDT 01/28/2024 9:58 AM CDT Britni Winston PA-C LAB - HEMATOLOGY ORD ERABLES [address] [place] [address], [facility] [phone] * TYPE + SCREEN PANEL (01/28/2024 9:44 AM CDT) Pathologist [facility] Antibody Screen NEG 10:47 AM CDT [facility] BLOOD BANK LAB ABO Rh O POS 01/28/2024 10:47 AM CDT [facility] BLOOD BANK LAB Blood Bank BLOOD SPECIMEN / Unknown Venipuncture / Unknown 01/28/2024 9:44 AM CDT 01/28/2024 10:01 AM CDT Britni Winston PA-C LAB - BLOOD BANK ORD GELY [facility] BLOOD BANK LAB [address] [place] [address], [place] [phone] * URIC ACID BLOOD (01/28/2024 9:44 AM CDT) Uric Acid 4.6 2.6 - 6.0 mg/dL 01/28/2024 10:31 AM CDT [facility] Blood BLOOD SPECIMEN / Unknown Venipuncture / Unknown 01/28/2024 9:44 AM CDT 01/28/2024 9:58 AM CDT Britni Winston PA-C LAB - CHEMISTRY JON NAIDU Performing Organization Address [facility]/ZIP Co de Phone Number [facility] [address] [address], [place] [phone] * (ABNORMAL) LDH BLOOD (01/28/2024 9:44 AM CDT) [facility] LDH Total 280(H) 125 - 243 Units/L 01/28/2024 10:31 AM CDT [facility] Blood BLOOD SPECIMEN / Unknown Venipuncture / Unknown 01/28/2024 9:44 AM CDT 01/28/2024 9:58 AM CDT Britni Winston PA-C LAB - CHEMISTRY JON NAIDU Performing Organization Address City/[facility]/ZIP Co de Phone Number [address] [address], [place] [phone] * (ABNORMAL) CBC WITH DIFFERENTIAL (01/28/2024 9:44 AM CDT) Pathologist [facility] WBC 3.1(L) 4.0 - 10.7 x10E9/L 01/28/2024 10:57 AM [facility] RBC Count 2.71(L) 3.90 - 5.20 x10E12/L 01/28/2024 10:57 AM [facility] Hemoglobin 7.7(L) 11.9 - 15.8 g/dL 01/28/2024 10:57 AM [facility] Hematocrit 22.0(L) 34.8 - 46.1 % 01/28/2024 10:57 AM [facility] MCV 81.2 80.0 - 98.0 fL 01/28/2024 10:57 AM [facility] MCH 28.4 26.7 - 33.6 pg 01/28/2024 10:57 AM [facility] MCHC 35.0 31.7 - 36.3 g/dL 01/28/2024 10:57 AM [facility] RDW-CV 14.5 11.3 - 14.8 % 01/28/2024 10:57 AM [facility] Platelet Count 30(L) 150 - 420 x10E9/L 01/28/2024 10:57 AM [facility] MPV 10.9 7.8 - 11.4 fL 01/28/2024 10:57 AM [facility] Preliminary Absolute Neutrophil 0.65(L) 1.60 - 7.50 x10E9/L 01/28/2024 10:57 AM [facility] Comment:Preliminary ANC pend ing manual confirmation NRBC 0.6(H) <=0.0 /100 WBC 01/28/2024 10:57 AM [facility] Blood BLOOD SPECIMEN / Unknown Venipuncture / Unknown 01/28/2024 9:44 AM CDT 01/28/2024 9:58 AM CDT Britni Winston PA-C LAB - HEMATOLOGY ORD ERABLES [facility] [address] [place] [address], [facility] [phone] * MAGNESIUM BLOOD (01/28/2024 9:44 AM CDT) [facility] Magnesium 2.0 1.6 - 2.6 mg/dL 01/28/2024 10:31 AM [facility] Blood BLOOD SPECIMEN / Unknown Venipuncture / Unknown 01/28/2024 9:44 AM CDT 01/28/2024 9:58 AM CDT Britni Winston PA-C LAB - CHEMISTRY JON NAIDU Performing Organization Address [facility] Co de Phone Number [facility] [address] [place] [address] [phone] * (ABNORMAL) COMPREHENSIVE METABOLIC PANEL (01/28/2024 9:44 AM CDT) BUN 8 7 - 26 mg/dL 01/28/2024 10:31 AM [facility] Creatinine 0.65 0.56 - 0.96 mg/dL 01/28/2024 10:31 AM [facility] Sodium 141 136 - 145 mmol/L 01/28/2024 10:31 AM [facility] Potassium 3.6 3.5 - 4.5 mmol/L 01/28/2024 10:31 AM [facility] Chloride 111(H) 98 - 107 mmol/L 01/28/2024 10:31 AM [facility] CO2 22 22 - 29 mmol/L 01/28/2024 10:31 AM [facility] Glucose 162(H) 70 - 115 mg/dL 01/28/2024 10:31 AM [facility] Calcium 9.6 8.4 - 10.2 mg/dL 01/28/2024 10:31 AM [facility] Protein Total 6.4 6.0 - 8.3 g/dL 01/28/2024 10:31 AM [facility] Albumin 3.4 3.4 - 5.0 g/dL 01/28/2024 10:31 AM [facility] Bilirubin Total 0.3 0.2 - 1.2 mg/dL 01/28/2024 10:31 AM [facility] Alkaline Phosphatase 65 40 - 150 U/L 01/28/2024 10:31 AM [facility] ALT 71(H) 5 - 55 U/L 01/28/2024 10:31 AM [facility] AST 52(H) 5 - 34 U/L 01/28/2024 10:31 AM [facility] Anion Gap 8 6 - 16 01/28/2024 10:31 AM [facility] BUN/Creatinine Ratio 12 7 - 23 01/28/2024 10:31 AM [facility] Osmolality Calculated 294 275 - 295 mOsm/kg 01/28/2024 10:31 AM [facility] Albumin/Globulin Ratio 1.1 1.1 - 2.3 01/28/2024 10:31 AM [facility] eGFR by CKD-EPI >90 >=90 mL/min/1.7 3 m2 01/28/2024 10:31 AM [facility] Blood BLOOD SPECIMEN / Unknown Venipuncture / Unknown 01/28/2024 9:44 AM CDT 01/28/2024 9:58 AM CDT Britni Winston PA-C LAB - CHEMISTRY JON NAIDU [address] [address], [place] [phone] * PHOSPHORUS BLOOD (01/28/2024 9:44 AM CDT) Phosphorus 2.9 2.9 - 5.1 mg/dL 01/28/2024 10:31 AM [facility] Blood BLOOD SPECIMEN / Unknown Venipuncture / Unknown 01/28/2024 9:44 AM CDT 01/28/2024 9:58 AM CDT Britni Winston PA-C LAB - CHEMISTRY JON NAIDU [address] [address], [place] [phone] documented in this encounter Visit Diagnoses Diagnosis Ovarian mass- Primary Unspecified noninflammatory disorder of ovary, fallopian tube, and broad ligament 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 documented in this encounter Care Teams Publishing Agent Relationship Specialty Start Date End Date Nilam Mayers MD [address] [place] [phone] PCP - General Family Medicine 09/04/23 04/18/24 documented as of this encounter
--- OUTSIDE RECORDS SUMMARY | 2024-08-31 21:26 | XMS_ITS | Encounter Summary ---
Author Organization [facility] Address [address] [place] [address] [place] [address] Care Team Providers Care Catalytic Case Operator Name Role Phone Nilam Mayers MD Primary Care Provider +1- [phone] Encounter Details Date Type Department Care Team (Latest Contact Info) Description 03/22/2024 Travel Social History Tobacco Use Types Packs/Day [...] Recorded Patient Health Questionnaire-2 Score 0 03/03/2024 [facility] - Occupational Stress [...] st Contact Info) Description 10/27/2024 10:30 AM KNIFE SETTER GRINDER MACHINE Appointment [facility] B[facility] CL[facility]IC [address] [place] [address] Hussain Carias MD [address] [place] [address] Britni Winston, PABaronC [address] [place] [address] 11/17/2024 9:00 AM KNIFE SETTER GRINDER MACHINE Office Visit [facility]mology [facility] [place] [phone] Song Hobson MD [address] [place] [address] [place] [phone] documented as of this encounter Visit Diagnoses Not on filedocumented in this encounter Care Teams Catalytic Case Operator Relationship Specialty Start Date End Date Nilam Mayers MD [address] [place] [phone] PCP - General Family Medicine 09/04/23 04/18/24 documented as of this encounter
--- OUTSIDE RECORDS SUMMARY | 2024-08-31 21:26 | XMS_ITS | Encounter Summary ---
Author Organization [facility] Address [address] [place] [address] [place] [address] Care Team Providers Care Transit Planner Name Role Phone Nilam Mayers MD Primary Care Provider +1- [phone] Encounter Details Date Type Department Care Team (Latest Contact Info) Description 02/13/2024 Travel Social History Tobacco Use Types Packs/Day [...] and heating? Not hard at all 01/19/2024 [facility] [place] of Occupat ional Health - Occupational Stress [...] st Contact Info) Description 10/27/2024 10:30 AM SURGICAL ONCOLOGIST Appointment [facility] [address] [place] [address] Hussain Carias MD [address] [place] [address] Britni Winston, PABaronC [address] [place] [address] 11/17/2024 9:00 AM SURGICAL ONCOLOGIST Office Visit [facility] - Ophthalmology [address] [place] [phone] Song Hobson MD [address] [place] [address] [place] [phone] documented as of this encounter Visit Diagnoses Not on filedocumented in this encounter Care Teams Transit Planner Relationship Specialty Start Date End Date Nilam Mayers MD [address] [place] [phone] PCP - General Family Medicine 09/04/23 04/18/24 documented as of this encounter
--- OUTSIDE RECORDS SUMMARY | 2024-08-31 21:26 | XMS_ITS | Encounter Summary ---
Author Organization [facility] Address [address] [place], [place] [address] [address] Care Team Providers Care Retreader Name Role Phone Nilam Mayers MD Primary Care Provider +1- [phone] Reason for Visit * Oncology Prior Authorization (Routine) - Authorized Specialty Diagnoses / Procedures Referred By Contac t Referred To Contact Diagnoses Vaginal bleeding Procedures IN INJ MEDROXYPROGESTERNE ACETATE 1 MG Hussain Carias MD [address] [place] [address] [facility] [place] [address] Referral ID Status Reason Start Date Expiration Date V isits Requested Visits Authorized [id number] Authorized 10/14/2023 01/13/2024 1 1 Encounter Details Date Type Department Care Team (Latest Contact Info) Description 02/06/2024 9:29 AM CDT - 02/06/2024 11:59 PM CDT Hospital Encounter [facility] [address] [place] [address] Hussain Carias MD [address] [place] [address] Britni Winston PABaronC [address] [place] [address] Discharge Disposition: Home or Self [...] and heating? Not hard at all 01/19/2024 [facility] [place] of Occupat ional Health - Occupational Stress [...] Sign Reading Time Taken Comments Blood Pressure 124/82 02/06/2024 12:58 PM CDT Pulse 91 02/06/2024 12:58 PM CDT Temperature 36.7 ??C (98.1 ??F) 02/06/2024 1 2:58 PM CDT Respiratory Rate 20 02/06/2024 12:5 8 PM CDT Oxygen Saturation 100% 02/06/2024 12: 58 PM CDT Inhaled Oxygen Concentration - - Weight 109.6 kg (241 lb 9.6 oz) 02/06/2024 9:42 AM CDT Height - - Body Mass Index 44.19 01/19/2024 4:24 PM CDT documented in this [...] 01/23/2024 03/31/2024 posaconazole (Noxafil) 100 MG tabletIndications: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 HEMATOLOGY/ONCOLOGY INPATIENT PROGRESS NOTE Name: Sarah Mckeon Age: [age] year old Date of : 1985 Date of Service: 02/06/2024 Reason for Consult: AML HEMATOLOGY & ONCOLOGY [...] in August of 2023 was admitted to [facility] c/o flu like symptoms and ultimately had marrow biopsy revealing 78% blasts on marrow and flow cytometry confirmed NPM1 mutation. Was sent to [facility] for AML. Completed 7 + 3 induction, cou nt recovery BMBx on 09/1723 confirmed remission. Has completed 2 consolidation therapies. 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 All have been worked up both in the inpatient and outpatient setting, well controlled on current medication regimen. Interval History: Presents to clinic s/p C4 HiDAC for lab check. Denies vaginal spotting. Denies bleeding anywhere. Pt reports she is feeling very well and is excited to have her hair growing back. Denies fevers, chills, nausea, vomiting, diarrhea, or constipation. Denies pain anywhere. VSS Review of Systems: Review of Systems [...] unspecified 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 ([facility]) 09/06/2023 - Chemotherapy cytarabine (Cytosar) 460 mg [...] Active Treatment Days for Sarah Mckeon (until 02/07/2024) There are no remaining days before 02/07/2024. Medications SCHEDULED MEDICATIONS: Current Outpatient Medications Medication [...] (one) tablet by mouth 2 times daily Current Facility-Administered Medications Medication medroxyPROGESTERone (Depo-Provera) injection 150 mg Allergies Allergies Allergen Reactions Vancomycin Itching OBJECTIVE Physical Exam Vitals: 02/06/24 0942 02/06/24 1124 BP: 140/73 119/78 Pulse: 102 99 Resp: 20 18 Temp: 97.5 ??F 97.9 ??F SpO2: 100% 100% Weight: 109.6 kg (241 lb 9.6 oz) Wt Readings from Last 3 Encounters: 02/06/24 109.6 kg (241 lb 9.6 oz) 02/02/24 108.5 kg (239 lb 1.6 oz) 01/30/24 109.5 kg (241 lb 4.8 oz) Karnofsky/ECO/0 General appearance - well-appearing, and [...] tenderness Laboratory Results Recent Labs Component Name 02/06/24 0958 02/02/24 1110 01/30/24 1057 01/03/248 01/02/24205101/01/242117 WBC 4.1 3.9* 3.2* - 2.9* 3.6* RBC 2.36* 2.54* 2.61* - 2.63* 2.80* HGB 7.0* 7.4* 7.6* - 7.4* 7.9* HCT 20.6* 21.1* 21.3* - 21.1* 22.4* MCV 87.3 83.1 81.6 - 80.2 80.0 MCHC 34.0 35.1 35.7 - 35.1 35.3 PLTCOUNT 33* 37* 53* - 25* 32* NEUTPCT 54.9 - - - 84.4* 87.5* LYMPHPCT 26.9 - - - 11.4* 7.2* NEUTABS 2.22 1.70 1.87 0.79* 1.06* - 2.44 3.14 LYMPHABS 1.09 1.44 1.50 - 0.33* 0.26* BASOABS 0.00 - - - 0.00 0.00 - = values in this interval not displayed. Recent Labs Component Name 02/06/24 0958 02/02/24 1110 01/30/24 1057 POTASSIUM 3.4* 3.6 3.6 CO2 21* 21* 21* BUN 7 9 9 CREATININE 0.58 0.66 0.59 EGFR >90 >90 >90 GLUCOSE 156* 148* 152* CALCIUM 9.6 9.9 9.4 MAGNESIUM 1.9 2.0 2.0 PHOS 2.8* 3.0 2.9 ALT 24 43 63* AST 13 20 40* ALKPHOS 71 72 66 Recent Labs Component Name 02/06/24 0958 02/02/24 1110 01/30/24 1057 MAGNESIUM 1.9 2.0 2.0 Recent Labs Component Name 02/06/24 0958 02/02/24 1110 01/30/24 1057 PHOS 2.8* 3.0 2.9 Pathology Results RVP (12/19/23): negative Radiology Results [...] substantially decreased from 09/28/2023. Findings could be tax representative of small airways disease. Otherwise, no [...] and molecular remission after 7+3 -Transferred from [facility] after a BMBX showed 78% blasts [...] consolidation. No more IT treatment planned. - 02/06/24 labs reviewed. Plt stable. 1 unit PRBC given for Hgb 7. Electrolytes within normal limits. - Will complete [...] 3. Vaginal Bleeding - Medroxyprogesterone pill discontinued 10/17 concern for IIH. Confirmed with patient that she is nottaking it. - CTM - Medroxyprogesterone injection given 02/06/24. - Next medroxyprogesterone injection planned for 03/01/24. [...] mass, r/o teratoma - Incidental finding on 5/3 CT scan: 2.8 x 3.0 cm heterogenous mass within the left ovary containing areas of fat density and multiple calcified foci, will refer to gynecology. Discussed this with pton 01/28/24 (UPT neg 01/28/24), pt would like to follow up with her local BROKERAGE COORDINATOR and states she will schedule this appointment. However, pt's local BROKERAGE COORDINATOR was unable to treat this, so will send repeat referral to [facility] BROKERAGE COORDINATOR. Awaiting pt to be scheduled PLAN: - S/p C4 HiDAC consolidation - Pt will follow up with [facility] BROKERAGE COORDINATOR for ovarian mass, repeat referral sent. - Once counts recover, plan to switch central line to PORT as pt is a very difficult stick and pt would prefer PORT. R/b discussed. - Labs reviewed; 1 unit PRBC given for Hgb 7. DISPOSITION: RTC 02/10/24 for basics, T&S, ? Transfusions, and on 02/13/24 for basics, T&S, ?Transfusions, ABEL visit, and depo shot The total time spent today in the visit with the patient, performing chart preparation, review of data, and documentation, not related to any procedure or preventative visit services was 25 minutes. Britni Winston PA-C Blood & Marrow Transplant [facility] documented in this encounter Plan of Treatment Upcoming Encounters Date Type Department Care Team (Late st Contact Info) Description 10/27/2024 10:30 AM BOTTLER Appointment [facility] [address] [place] [address] Hussain Carias MD [address] [place] [phone] Britni Winston PA-C [address] [place] [address] 11/17/2024 9:00 AM BOTTLER Office Visit [facility] - Ophthalmology [address] [place] [phone] Song Hobson MD [address] [place] [address] DE[place] [address] documented as of this encounter Procedures Procedure Name Priority Date/Time Associated Diagnosis Comments TRANSFUSE RED BLOOD CELL LEUKOREDUCED UNIT(S) Routine 02/06/2024 11:24 AM CDT PREPARE RBC LEUKOREDUCED UNIT Routine 02/06/2024 11:14 AM CDT TYPE + SCREEN PANEL STAT 02/06/2024 9 :58 AM CDT Acute myeloid leukemia in remission (HCC) CBC W AUTO DIFFERENTIAL STAT 02/06/2024 9:58 AM CDT Acute myeloid leukemia in remission (HCC) COMPREHENSIVE METABOLIC PANEL STAT 02/06/2024 9:58 AM CDT Acute myeloid leukemia in remission (HCC) PHOSPHORUS BLOOD STAT 02/06/2024 9:58 AM CDT Acute myeloid leukemia in remission (HCC) MAGNESIUM BLOOD STAT 02/06/2024 9:58 AM CDT Acute myeloid leukemia in remission (HCC) LDH BLOOD STAT 02/06/2024 9:58 AM CDT Acute myeloid leukemia in remission (HCC) documented in this encounter Results * TRANSFUSE RED BLOOD CELL LEUKOREDUCED UNIT(S) (02/06/2024 12:58 PM CDT) Hussain Carias MD NURSING - BLOOD PROD TRANSFUSION * TRANSFUSE RED BLOOD CELL LEUKOREDUCED UNIT(S), 1 Units (02/06/2024 12:58 PM CDT) Hussain Carias MD NURSING - BLOOD PROD TRANSFUSION * PREPARE (CROSSMATCH) RBC UNIT(S), 1 Units (02/06/2024 11:14 AM CDT) Unit Description AS1 LR PRBC IRR [facility] Unit ABO O [facility] Unit Rh POS [facility] Product Number R04 [facility] Unit Donor # [id number] [facility] Unit Status transfused [facility] Product Code [id number] [facility] Blood Type Barcode 5100 [facility] Expiration Date [id number] S BLOOD BANK LAB Blood Bank BLOOD SPECIMEN / Unknown 02/06/2024 10:12 AM CDT Hussain Carias MD LAB - BLOOD BANK ORD ERABLES Performing Organization Address City/[facility]/ZIP Co de Phone Number [facility] [address] [place] [address], [place] [phone] * TYPE + SCREEN PANEL (02/06/2024 9:58 AM CDT) Antibody Screen NEG 11:02 AM CDT [facility] ABO Rh O POS 02/06/2024 11:02 AM CDT [facility] Blood Bank BLOOD SPECIMEN / Unknown Venipuncture / Unknown 02/06/2024 9:58 AM CDT 02/06/2024 10:12 AM CDT Britni Winston PA-C LAB - BLOOD BANK ORD GELY Performing Organization Address [facility]/ZIP Co de Phone Number [facility] [address] [place] [address], [place] [phone] * LDH BLOOD (02/06/2024 9:58 AM CDT) LDH Total 206 125 - 243 Units/L 02/06/2024 10:49 AM CDT [facility] Blood BLOOD SPECIMEN / Unknown Venipuncture / Unknown 02/06/2024 9:58 AM CDT 02/06/2024 10:13 AM CDT Britni Winston PA-C LAB - CHEMISTRY JON NAIDU Performing Organization Address City/[facility]/ZIP Co de Phone Number [facility] [address] [place] [address], [place] [phone] * (ABNORMAL) CBC WITH DIFFERENTIAL (02/06/2024 9:58 AM [facility] [place] [place] WBC 4.1 4.0 - 10.7 x10E9/L 02/06/2024 11:22 AM [facility] RBC Count 2.36(L) 3.90 - 5.20 x10E12/L 02/06/2024 11:22 AM [facility] Hemoglobin 7.0(L) 11.9 - 15.8 g/dL 02/06/2024 11:22 AM [facility] Hematocrit 20.6(L) 34.8 - 46.1 % 02/06/2024 11:22 AM [facility] MCV 87.3 80.0 - 98.0 fL 02/06/2024 11:22 AM [facility] MCH 29.7 26.7 - 33.6 pg 02/06/2024 11:22 AM [facility] MCHC 34.0 31.7 - 36.3 g/dL 02/06/2024 11:22 AM [facility] RDW-CV 18.9(H) 11.3 - 14.8 % 02/06/2024 11:22 AM [facility] Platelet Count 33(L) 150 - 420 x10E9/L 02/06/2024 11:22 AM [facility] MPV 11.4 7.8 - 11.4 fL 02/06/2024 11:22 AM [facility] Preliminary Absolute Neutrophil 2.22 1.60 - 7.50 x10E9/L 02/06/2024 11:22 AM [facility] Comment:Preliminary ANC pend ing manual confirmation Neutrophil % 54.9 41.0 - 74.0 % 02/06/2024 11:22 AM [facility] Lymphocyte % 26.9 17.0 - 47.0 % 02/06/2024 11:22 AM [facility] Monocyte % 18.0(H) 3.0 - 11.0 % 02/06/2024 11:22 AM [facility] Eosinophil % 0.0 0.0 - 7.0 % 02/06/2024 11:22 AM [facility] Basophil % 0.0 0.0 - 1.6 % 02/06/2024 11:22 AM [facility] Immature Granulocytes % 0.2 0.0 - 1.0 % 02/06/2024 11:22 AM [facility] Neutrophil Absolute 2.22 1.60 - 7.50 x10E9/L 02/06/2024 11:22 AM T [facility] Lymphocyte Absolute 1.09 1.00 - 4.40 x10E9/L 02/06/2024 11:22 AM [facility] Monocyte Absolute 0.73 0.15 - 1.00 x10E9/L 02/06/2024 11:22 AM [facility] Eosinophil Absolute 0.00 0.00 - 0.60 x10E9/L 02/06/2024 11:22 AM [facility] Basophil Absolute 0.00 0.00 - 0.13 x10E9/L 02/06/2024 11:22 AM [facility] NRBC 1.0(H) <=0.0 /100 WBC 02/06/2024 11:22 AM [facility] Blood BLOOD SPECIMEN / Unknown Venipuncture / Unknown 02/06/2024 9:58 AM CDT 02/06/2024 10:13 AM CDT Britni Winston PA-C LAB - HEMATOLOGY ORD ERABLES [facility] [address] [place] [address], [facility] [phone] * MAGNESIUM BLOOD (02/06/2024 9:58 AM CDT) Magnesium 1.9 1.6 - 2.6 mg/dL 02/06/2024 10:49 AM CDT [facility] Blood BLOOD SPECIMEN / Unknown Venipuncture / Unknown 02/06/2024 9:58 AM CDT 02/06/2024 10:13 AM CDT Britni Winston PA-C LAB - CHEMISTRY ORDE RABQI [facility] [address] [place] [address], [facility] [phone] * (ABNORMAL) COMPREHENSIVE METABOLIC PANEL (02/06/2024 9:58 AM [facility] [place] [place] BUN 7 7 - 26 mg/dL 02/06/2024 10:49 AM [facility] Creatinine 0.58 0.56 - 0.96 mg/dL 02/06/2024 10:49 AM [facility] Sodium 141 136 - 145 mmol/L 02/06/2024 10:49 AM [facility] Potassium 3.4(L) 3.5 - 4.5 mmol/L 02/06/2024 10:49 AM [facility] Chloride 111(H) 98 - 107 mmol/L 02/06/2024 10:49 AM [facility] CO2 21(L) 22 - 29 mmol/L 02/06/2024 10:49 AM [facility] Glucose 156(H) 70 - 115 mg/dL 02/06/2024 10:49 AM [facility] Calcium 9.6 8.4 - 10.2 mg/dL 02/06/2024 10:49 AM [facility] Protein Total 6.5 6.0 - 8.3 g/dL 02/06/2024 10:49 AM [facility] Albumin 3.3(L) 3.4 - 5.0 g/dL 02/06/2024 10:49 AM [facility] Bilirubin Total 0.4 0.2 - 1.2 mg/dL 02/06/2024 10:49 AM [facility] Alkaline Phosphatase 71 40 - 150 U/L 02/06/2024 10:49 AM [facility] ALT 24 5 - 55 U/L 02/06/2024 10:49 AM [facility] AST 13 5 - 34 U/L 02/06/2024 10:49 AM [facility] Anion Gap 9 6 - 16 02/06/2024 10:49 AM [facility] BUN/Creatinine Ratio 12 7 - 23 02/06/2024 10:49 AM [facility] Osmolality Calculated 293 275 - 295 mOsm/kg 02/06/2024 10:49 AM [facility] Albumin/Globulin Ratio 1.0(L) 1.1 - 2.3 02/06/2024 10:49 AM [facility] eGFR by CKD-EPI >90 >=90 mL/min/1.7 3 m2 02/06/2024 10:49 AM T [facility] Blood BLOOD SPECIMEN / Unknown Venipuncture / Unknown 02/06/2024 9:58 AM CDT 02/06/2024 10:13 AM CDT Britni Winston PA-C LAB - CHEMISTRY JON NAIDU [address] [address], [facility] [phone] * (ABNORMAL) PHOSPHORUS BLOOD (02/06/2024 9:58 AM CDT) Phosphorus 2.8(L) 2.9 - 5.1 mg/dL 02/06/2024 10:49 AM T [facility] Blood BLOOD SPECIMEN / Unknown Venipuncture / Unknown 02/06/2024 9:58 AM CDT 02/06/2024 10:13 AM CDT Britni Winston PA-C LAB - CHEMISTRY JON NAIDU Performing Organization Address City/[facility]/ZIP Co de Phone Number [address] [address], [place] [phone] documented in this encounter Visit Diagnoses Diagnosis Vaginal bleeding- Primary 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 Is medication being prescribed by Dry Mill Operator or Oncologist? Yes $ Given 02/06/2024 1:00 PM CDT 150 mg Right Deltoid documented in this encounter Care Teams Retreader Relationship Specialty Start Date End Date Nilam Mayers MD [address] [place] [phone] PCP - General Family Medicine 09/04/23 04/18/24 documented as of this encounter
--- OUTSIDE RECORDS SUMMARY | 2024-08-31 21:26 | XMS_ITS | Encounter Summary ---
Author Organization [facility] Address [address] [place] [address] [place] [address] Care Team Providers Care Tattoo And Body Artist Name Role Phone Nilam Mayers MD Primary Care Provider +1- [phone] Encounter Details Date Type Department Care Team (Latest Contact Info) Description 02/26/2024 Travel Social History Tobacco Use Types Packs/Day [...] and heating? Not hard at all 01/19/2024 [facility] [place] of Occupat ional Health - Occupational Stress [...] st Contact Info) Description 10/27/2024 10:30 AM RISK ADJUSTMENT SPECIALIST Appointment [facility] [address] [place] [address] Hussain Carias MD [address] [place] [address] Britni Winston, PABaronC [address] [place] [address] 11/17/2024 9:00 AM RISK ADJUSTMENT SPECIALIST Office Visit [facility] - Ophthalmology [address] [place] [phone] Song Hobson MD [address] [place] [address] [place] [phone] documented as of this encounter Visit Diagnoses Not on filedocumented in this encounter Care Teams Tattoo And Body Artist Relationship Specialty Start Date End Date Nilam Mayers MD [address] [place] [phone] PCP - General Family Medicine 09/04/23 04/18/24 documented as of this encounter
--- OUTSIDE RECORDS SUMMARY | 2024-08-31 21:26 | XMS_ITS | Encounter Summary ---
Author Organization [facility] Address [address] [place] [address] [place] [address] Care Team Providers Care Grease Man Name Role Phone Nilam Mayers MD Primary Care Provider +1- [phone] Encounter Details Date Type Department Care Team (Latest Contact Info) Description 02/20/2024 Travel Social History Tobacco Use Types Packs/Day [...] and heating? Not hard at all 01/19/2024 [facility] [place] of Occupat ional Health - Occupational Stress [...] st Contact Info) Description 10/27/2024 10:30 AM FABRICATOR INDUSTRIAL FURNACE Appointment [facility] [address] [place] [address] Hussain Carias MD [address] [place] [address] Britni Winston, PABaronC [address] [place] [address] 11/17/2024 9:00 AM FABRICATOR INDUSTRIAL FURNACE Office Visit [facility] - Ophthalmology [address] [place] [phone] Song Hobson MD [address] [place] [address] [place] [phone] documented as of this encounter Visit Diagnoses Not on filedocumented in this encounter Care Teams Grease Man Relationship Specialty Start Date End Date Nilam Mayers MD [address] [place] [phone] PCP - General Family Medicine 09/04/23 04/18/24 documented as of this encounter
--- OUTSIDE RECORDS SUMMARY | 2024-08-31 21:26 | XMS_ITS | Encounter Summary ---
Author Organization [facility] Health Address [facility]3 [facility] [place] [address] Care Team Providers Care Pizza Cook Name Role Phone Nilam Mayers MD Primary Care Provider +1- [phone] Osmar Ragland MD Primary Care Provider +[phone] Encounter Details Date Type Department Care Team (Late st Contact Info) Description 01/23/2024 Orders Only [facility] 7N ACUTE [address] [place] [phone] Sivakumar Rosa MD [facility]1 [facility] [place] [phone] Other specified diseases of anus and rectum Social History Tobacco Use Types Packs/Day Years [...] Recorded Patient Health Questionnaire-2 Score 0 03/03/2024 [facility] of Occupat ional Health - Occupational Stress [...] Contact Info) Description 10/27/2024 10:30 AM PROJECT CREW WORKER Appointment [facility] [address] [place] [address] Hussain Carias MD [address] [place] [phone] Britni Winston, PA-C [address] [place], [place] [id number] 11/17/2024 9:00 AM PROJECT CREW WORKER Office Visit [facility] - Ophthalmology [address] [place] [address], [place] [phone] Song Hobson MD [address] [place] [address] [place] [phone] documented as of this encounter Visit Diagnoses Diagnosis Other specified diseases of anus and rectum documented in this encounter Care Teams Pizza Cook Relationship Specialty Start Date End Date Nilam Mayers MD [address] [place] [phone] PCP - General Family Medicine 09/04/23 04/18/24 Osmar Ragland MD [address] [place] [phone] PCP - General Family Medicine 04/19/24 documented as of this encounter
--- OUTSIDE RECORDS SUMMARY | 2024-08-31 21:26 | XMS_ITS | Encounter Summary ---
Author Organization [facility] Address [address] [place], [place] [address] [address] Care Team Providers Care Groover And Turner Name Role Phone Nilam Mayers MD Primary Care Provider [phone] Reason for Referral * Radiology Services (Routine) - Closed Specialty Diagnoses / Procedures Referred By Contac t Referred To Contact Interventional Radiology Diagnoses Acute myeloid leukemia in remission (HCC) Procedures IR CENTRAL LINE REMOVAL Britni Winston PA-C [address] [place] [address] [address] Referral ID Status Reason Start Date Expiration Date Visits Re quested Visits Authorized [id number] Closed 02/02/2024 02/01/2025 1 1 Reason for Visit * Radiology Services (Routine) - Closed Specialty Diagnoses / Procedures Referred By Contac t Referred To Contact Interventional Radiology Diagnoses Acute myeloid leukemia in remission (HCC) Procedures IR CENTRAL LINE REMOVAL Britni Winston PA-C [address] [place] [address] [facility] [address] [place] [phone] Referral ID Status Reason Start Date Expiration Date Visits Re quested Visits Authorized [id number] Closed 02/02/2024 02/01/2025 1 1 Encounter Details Date Type Department Care Team (Latest Contact Info) Description 03/03/2024 7:59 AM CDT - 03/03/2024 12:25 PM CDT Hospital Encounter [facility] [address] [place] [address] Britni Winston, PABaronC [address] [place] [address] Mary Ervin MD [address] [facility] DIV [place] [address] Internal Medicine Discharge Disposition: Home or Self Care Social [...] Score 0 03/03/2024 [facility] [place] of Occupat ional Health - Occupational Stress [...] Sign Reading Time Taken Comments Blood Pressure 125/80 03/03/2024 12:15 PM CDT Pulse 107 03/03/2024 12:15 PM CDT Temperature 36.8 ??C (98.2 ??F) 03/03/2024 12:00 PM C DT Respiratory Rate 20 03/03/2024 12:15 PM CDT Oxygen Saturation 99% 03/03/2024 12:15 PM CDT Inhaled Oxygen Concentration - - Weight 109.3 kg (241 lb) 03/03/2024 8:42 AM CDT Height 157.5 cm (5' 2 ) 03/03/2024 8:42 AM CDT Body Mass Index 44.08 03/03/2024 8:42 AM CDT documented in this encounter Functional Status [...] No 03/03/2024 documented as of this encounter Discharge Instructions * Discharge Instructions* Maria G Mortensen MD - 03/03/2024 11:15 AM CDT RADIOLOGY OUTPATIENT PHYSICIAN DISCHARGE ORDER Dressing Care: leave dressing in place. Keep Dry Instructions: If you have one or more of the following, please call your physician: A. Redness or swelling of the operative site. B. Persistent bleeding through bandage. C. Severe pain which is not relieved by oral pain medication. D. Temperature above 101 degrees or severe chilling. E. Foul odor of drainage. If you are unable to reach your physician with an urgent or severe problem: 1. Call the nephrology resident at [phone] . 2. Call the emergency room at [phone]. Post Moderate Sedation instructions: During the procedure, you received sedation medications that might linger in your system up to 24 hours after administration. Therefore, for the next 24 hours, donot drive a car or use heavy equipment. An adult should drive you home and stay with you after you have had moderate sedation. Follow your caregiver's advice about making changes to your diet, activity, or medicine. Avoid hardexercise right after having moderate sedation. Do not drink alcoholic beverages, such as beer and wine etc. Do not make important decisions for 24 hours (one day) after having moderate sedation like big financial decisions, selling property etc. Medications: IF prescribed pain medications, do not take on an empty stomach. Do not drive, drink alcohol or operate machinery while taking medication.; we have not made any changes to your previously prescribed medications. 03/03/2024 11:15 AM Physician: Maria G Mortensen documented in this encounter Medications at Time of Discharge Medication Sig Dispensed Refills Start Date End Date Carboxymethylcellulo se Sodium (ARTIFICIAL TEARS OP) famotidine (Pepcid) 20 MG tabletIndications:To nsillitis Take 1 (one) tablet by mouth 2 times daily 60 tablet 1 10/17/2023 multivitamin daily tablet Take 1 (one) tablet by mouth daily with food Womans multivitamin ciprofloxacin (Cipro) 750 MG tablet TAKE ONE [...] 01/23/2024 03/31/2024 posaconazole (Noxafil) 100 MG tabletIndications:[place] myeloid leukemia in remission (HCC) Take 3 (three) tablets by mouth daily with dinner 90 tablet 5 12/15/2023 05/20/2024 prochlorperazine (Compazine) 10 MG tablet Take 1 (one) tablet by mouth every 8 hours as needed for Nausea/Vomiting 04/30/2024 sennosides (Senokot) 8.6 MG tablet TAKE ONE TABLET BY MOUTH ONCE DAILY NEEDED FOR CONSTIPATION 30 tablet 01/23/2024 06/25/2024 valACYclovir (Valtrex) 500 MG tabletIndications:Ac [place] myeloid leukemia in remission (HCC) Take 1 (one) tablet by mouth 2 times daily 60 tablet 11 11/03/2023 08/23/2024 documented as of this encounter H&P Notes * Maria G Mortensen MD - 03/03/2024 9:01 AM CDT INTERVENTIONAL NEPHROLOGY HISTORY AND PHYSICAL Patient Name: Sarah Mckeon HISTORY OF PRESENT ILLNESS: 38 year old female with PMH of AML presents to interventional suite today for removal of a tunneledtrifusion hernandez catheter since it is no longer needed. REVIEW OF SYSTEMS: Negative for f/c Negative for c/p PAST MEDICAL HISTORY: Past Medical History: Diagnosis Date Acute hypoxic respiratory failure (HCC) 09/27/2023 Acute myeloid leukemia in remission (HCC) 09/03/2023 Anemia 11/04/2023 Hypernatremia 11/05/2023 Hypophosphatemia 11/05/2023 IIH (idiopathic intracranial hypertension) 10/09/2023 Pancytopenia due to chemotherapy (HCC) 09/05/2023 Pseudotumor cerebri 12/06/2023 Pulmonary edema (HCC) 09/27/2023 Tachycardia 12/30/2023 Tonsillitis 09/05/2023 PAST SURGICAL HISTORY: as above in PMH plus: Past Surgical History: Procedure Laterality Date Section Cholecystectomy KIDNEY STONES, REMOVAL SOCIAL HISTORY: Social History Socioeconomic History Marital status: Tobacco Use Smoking status: Former Packs/day: 1 Types: Cigarettes Start date: 2004 Quit date: 2010 Years since quittin. Smokeless tobacco: Never Vaping Use Vaping Use: Never used Substance and Sexual Activity Alcohol use: Yes Comment: occasional Drug use: Never Sexual activity: Yes FAMILY HISTORY: Family History Family history unknown: Yes ALLERGIES: Allergies Allergen Reactions Vancomycin Itching MEDS: Reviewed VITALS: Vitals: 03/03/24 0842 03/03/24 0856 BP: 111/77 Pulse: (!) 111 Resp: 16 Temp: 98 ??F (36.7 ??C) SpO2: 98% Weight: 109.3 kg (241 lb) Height: 1.575 m (5' 2 ) Estimated body mass index is 44.08 kg/m?? as calculated from the following: Height as of this encounter: 1.575 m (5' 2 ). Weight as of this encounter: 109.3 kg (241 lb). PHYSICAL EXAM: Gen in nad Right IJ Hernandez catheter s1s2 rrr No edema LAB: Recent Labs Component Name 02/26/24 1312 02/20/2443 02/13/24105602/10/2429 02/06/2458 12/30/23203412/30/23110309/14/23214909/13/23205109/12/23204509/11/23200109/10/23211009/09/23213709/08/232054 HGB 9.6* 9.2* 8.7* 8.5* 7.0* - - - 7.4* 7.0* 7.0* - 7.3* 6.7* WBC 5.8 7.2 5.3 4.8 4.1 - - - 0.5* 0.5* 0.5* - 0.3* 0.4* PLT - - - - - - 34* - - - - - - - HCT 28.5* 27.0* 25.9* 25.0* 20.6* - - - 20.0* 19.2* 19.3* - 20.2* 18.8* MCV 95.3 93.4 91.2 89.0 87.3 - - - 87.7 88.5 89.4 - 89.4 91.3 PT - - - - - - - - 13.1 13.6 14.4 - 14.1 13.1 INR - - - - - - - - 1.0 1.1 1.2 - 1.1 1.0 - = values in this interval not displayed. ) Recent Labs Component Name 02/26/24131102/20/2494202/13/24105602/10/2492802/06/24 0958 BUN 7 7 6* 9 7 CREATININE 0.66 0.65 0.66 0.66 0.58 NA 144 140 140 141 141 CL 113* 111* 111* 110* 111* CO2 21* 21* 22 19* 21* CALCIUM 9.4 9.5 9.4 9.9 9.6 PHOS 2.8* 3.3 2.8* 3.4 2.8* Recent Labs Component Name 02/26/24131102/20/2443 02/13/24105602/10/2492802/06/24 09 ALB 3.5 3.5 3.4 3.4 3.3* TBILI 0.4 0.4 0.3 0.4 0.4 ALT 29 24 25 22 24 AST 24 17 17 17 13 Recent Labs Component Name 09/25/23 0014 [id number] 17.4* ASSESSMENT: Tunneled cathter no longer needed PLAN: Proceed with hernandez catheter removal under local anesthesia Maria G Mortensen MD documented in this encounter Procedure Notes * Maria G Mortensen MD - 03/03/2024 11:13 AM CDT Brief Procedure Note - Interventional Nephrology Sarah Mckeon 1985 Date of procedure: 03/03/24 Procedure: Trifusion Hernandez Catheter Removal RI Die Maker: Maria G Mortensen Complications: None Full procedure note and images in Synapse and EPIC (Results/Interventional) Dr.Posan Bryson Mortensen Nephrology Attending [facility] 03/03/24 11:14 AM * Maria G Mortensen MD - 03/03/2024 11:13 AM CDT IP Sedation Post Date/Time: 03/03/2024 11:13 AM Performed by: Maria G Mortensen Authorized by: Maria G Mortensen Unit: IR Post-Procedure Attestation: I have reviewed the post-procedure vital signs: Patient is 2 - able to move four extremities voluntarily on command. Patient 2 - is able to breathe and cough freely. Patient's 2 - Blood pressure within 20% of pre-anesthesia level Patient is 2 - Fully Awake Patient's 2 - color is WNL. Jose De Jesus score is 10 Patient's temperature is Normalthermic Patient's pain level is: None 03/03/2024 11:13 AM Maria G Mortensen MD * Maria G Mortensen MD - 03/03/2024 9:01 AM CDT IP Sedation Pre Date/Time: 03/03/2024 9:01 AM Performed by: Maria G Mortensen Authorized by: Maria G Mortensen Unit: IR Consent: Verbal consent obtained. Written consent obtained. History & Exam Attestation: I have reviewed the pre-procedure nursing assessment: Yes Brief history and exam related to procedure complete: Yes H&P was reviewed, the patient was examined, and that ? no changes? have occurred in the patient? s condition since the H&P was complete: Yes History of previous anesthetic problems/complications including family history: No History of airway problems: No Tracheal deviation: No Short thick neck/non-visible neck: No Neck with limited range of motion: No Visible anterior neck mass: No Small mouth opening/ and/or sub/mental space (less than 3 finger breadths): No Protruding upper teeth: No Oxygen saturation less than 91% on room air: No Pre-Procedure ASA Classification: ASA 2 Mallampati Classification: Class II Procedure Plan: Moderate Sedation Based on the pre-procedure assessment, History and Physical, and allergy history, this patient is asuitable candidate for sedation during the planned procedure. I have discussed the plan, risk, benefits and alternatives with patient, family members or patient warehouse representative: Yes Attestation: I have reviewed the immediate pre-procedure vital signs: Yes Patient reports or my clinical evaluation indicates there have been no changes in the patient's condition prior to the start of the procedure: Yes Intra-Procedure Patient is currently here for Hernandez catheter removal 03/03/2024 9:01 AM Maria G Mortensen MD documented in this encounter Plan of Treatment Upcoming Encounters Date Type Department Care Team (Late st Contact Info) Description 10/27/2024 10:30 AM INSURANCE COMMISSIONER Appointment [facility] [address] [place] [address] Hussain Carias MD [address] [place] [phone] Britni Winston PA-C [address] [place] [address] 11/17/2024 9:00 AM INSURANCE COMMISSIONER Office Visit [facility] - Ophthalmology [address] [facility], [place] [address] Song Hobson MD [address] [place] [address] [place] [phone] documented as of this encounter Procedures Procedure Name Priority Date/Time Associated Diagnosis Comments IR CENTRAL LINE REMOVAL Routine 03/03/2024 10:56 AM CDT Acute myeloid leukemia in remission (HCC) HCG URINE QUALITATIVE - POCT (IP) INTERFACED Routine 03/03/2024 8:41 AM CDT HCG URINE QUAL POCT NOTIFICATION STAT 03/03/2024 8:38 AM CDT Pre-procedure lab exam documented in this encounter Results * IR CENTRAL LINE REMOVAL (03/03/2024 10:56 AM CDT) Anatomical Region Laterality Modality X-Ray Angiograph y 03/03/2024 11:1 5 AM CDT Impressions 03/03/2024 11:18 AM CDT IMPRESSION: Successful removal of Tri fusion Hernandez tunneled central line under fluoroscopic guidance. > Interpreting Provider: Maria G Mortensen MD on 03/03/2024 11:18 AM Narrative 03/03/2024 11:18 AM CDT PROCEDURE: ??IR CENTRAL LINE REMOVAL DATE/TIME OF EXAM: ??03/03/2024 7:58 AM CLINICAL INFORMATION: None relevant/not provided if blank. Indication: C92.01: Acute myeloid leukemia in remission (HCC) Additional History: Die Maker: Maria G Mortensen MD COMPARISON: None. FLUOROSCOPY DOSE: Reference air kerma (ka,r). FINDINGS: Following informed consent the patient was taken to the angiography suite where they were noted to have a Right ??internal jugular tunneled central venous catheter. [employer] film with the existing catheter was obtained. [...] myeloid leukemia in remission (HCC) Additional History: Die Maker: Maria G Mortensen MD COMPARISON: None. FLUOROSCOPY DOSE: Reference air kerma (ka,r). FINDINGS: Following informed consent the patient was taken to the angiographysuite where they were noted to have a Right internal jugular tunneled central venous catheter. Stri[employer] film with the existing catheter was obtained.The [...] procedure. IMPRESSION: Successful removal of Tri fusion Hernandez tunneled central line under fluoroscopic guidance. > Interpreting Provider: Maria G Mortensen MD on 03/03/2024 11:18 AM Britni Winston PA-C IR ORDERABLES * HCG URINE QUALITATIVE - POCT (IP) INTERFACED (03/03/2024 8:41 AM CDT) HCG Qual Urine Negative Negative 03/03/2024 8:48 AM CDT [facility] Urine URINE / Unknown 03/03/2024 8 :41 AM CDT 03/03/2024 8:48 AM CDT Britni Winston PA-C LAB - POINT OF CARE ORDERABLES Performing Organization Address City/[facility]/ZIP Co de Phone Number [facility] [address] [place] [phone], [place] [phone] * HCG URINE QUAL POCT NOTIFICATION (03/03/2024 8:38 AM CDT) Comment Notification Label Only - See Separate Report 03/03/2024 10:00 AM CDT [facility] Urine URINE / Unknown 03/03/2024 8 :38 AM CDT 03/03/2024 8:38 AM CDT Maria G Mortensen MD LAB - URINALYSIS ORD ERABLES Performing Organization Address City/[facility]/ZIP Co de Phone Number [address] [address], [place] [phone] documented in this encounter Visit Diagnoses Diagnosis Pre-procedure lab exam- Primary Pre-procedural laboratory examination 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 documented in this encounter Administered Medications Inactive Administered Medications - up to 3 most recent administrations Medication Order MAR Action Action Date Dose Rate Site lidocaine HCl (PF) (Xylocaine MPF) 2 % injection Subcutaneous, ONCE PRN, Starting on Fri03/03/24 at 1054, Until Fri03/03/24 at 1054, Intra-op $ Given 03/03/2024 10:54 AM CDT 10 mL Se e Comments documented in this encounter Active and Recently Administered Medications Times are shown in CDT. PRN Medication Order 03/01/2024 03/02/2024 03/03/2024 lidocaine HCl (PF) (Xylocaine MPF) 2 % injection (COMPLETED) Subcutaneous, ONCE PRN, Starting on Fri03/03/24 at 1054, Until Fri03/03/24 at 1054, Intra-op 1054 ($ Given - Prov ider: Maria G Mortensen MD - Comment: to table) documented in this encounter Care Teams Groover And Turner Relationship Specialty Start Date End Date Nilam Mayers MD [address] [place] [address] PCP - General Family Medicine 09/04/23 04/18/24 documented as of this encounter
--- OUTSIDE RECORDS SUMMARY | 2024-08-31 21:26 | XMS_ITS | Encounter Summary ---
Author Organization [facility] Health Address [address] [place], [place] [address] [address] Care Team Providers Care Roof Fixer Name Role Phone Nilam Mayers MD Primary Care Provider [phone]- [phone] Reason for Visit * Reason Comments Follow-up Encounter Details Date Type Department Care Team (Late st Contact Info) Description 03/02/2024 1:45 PM CDT Office Visit [facility] - Ophthalmology [address] [place] [phone] Song Hobson MD [address] [place] [address] [place] [address] Papilledema associated with increased intracranial [...] Recorded Patient Health Questionnaire-2 Score 0 03/03/2024 [facility] of Occupat ional Health - [...] place to sleep or slept in a skilled nursing (including now)? No 01/19/2024 Sex and Gender [...] No 01/19/2024 documented as of this encounter Progress Notes * Shannan Woods MD - 03/02/2024 1:37 PM CDT Images from the original note were not included. Ophthalmology Office Note Subjective: Chief Complaint Patient presents with Follow-up Sarah Mckeon is a 38 year old female here for papilledema follow-up. Diamox 500 mg PO BID - d/c 12/[address] Cali in bone-marrow clinic. As of consult with us 12/01, patient was to continue until she saw Dr. Hobson at several cancelled appointments, and was also noted to be sent in upon discharge of weekly chemotherapy 12/05, but patient states she was never prescribed it to restart. Had LP 10/01 and 10/06, as they forgot to take out the fluid, concern for leukemic infiltrates in right orbit. New dark floater right eye a few weeks ago, has now dissipated. Vision is pretty good. No eye pain/pressure. Rare head pain left side, sometimes when getting up too fast, lasts a few seconds. Denies TVOs, N/V, diplopia, tinnitus. No flashes of light. Drops: PFATs 6x/day OU AT [facility] QHS OU In remission from Leukemia, last chemo session in December. Current Outpatient Medications Medication Sig Dispense Refill Carboxymethylcellulose Sodium (ARTIFICIAL TEARS OP) dilTIAZem 1% CREA Apply to affected area 2 times daily 100 g 1 docusate sodium (Colace) 100 MG capsule famotidine (Pepcid) 20 MG tablet Take 1 [...] caused by Cancer Chemotherapy 100 tablet 11 polyethylene glycol 3350 (Miralax) 17 GM/SCOOP powder Take 17 (seventeen) g by mouth once daily 238g 0 posaconazole (Noxafil) 100 MG tablet Take 3 [...] this visit. Allergies Allergen Reactions Vancomycin Itching Past Medical History: Diagnosis Date Acute hypoxic respiratory failure (HCC) 09/27/2023 Acute myeloid leukemia in remission (HCC) 09/03/2023 Anemia 11/04/2023 Hypernatremia 11/05/2023 Hypophosphatemia 11/05/2023 IIH (idiopathic intracranial hypertension) 10/09/2023 Pancytopenia due to chemotherapy (HCC) 09/05/2023 Pseudotumor cerebri 12/06/2023 Pulmonary edema ([facility]) 09/27/2023 Tachycardia 12/30/2023 Tonsillitis 09/05/2023 Past Surgical History: Procedure Laterality Date Section Cholecystectomy KIDNEY STONES, REMOVAL Family History Family history unknown: Yes Social History Tobacco Use Smoking status: Former Packs/day: 1 Types: Cigarettes Start date: 2004 Quit date: 2010 Years since quittin.4 Smokeless tobacco: Never Vaping Use Vaping Use: Never used Substance Use Topics Alcohol use: Yes Comment: occasional Drug use: Never Objective: Base Eye Exam Visual Acuity (Snellen - Linear) Right Left Dist sc 20/20 20/20 Tonometry (Tonopen, 1:32 PM) Right Left Pressure 18 18 Pupils Pupils Dark Light Shape React APD Right PERRL 7 5 Round Brisk None Left PERRL 7 5 Round Brisk None Visual Hurt (Counting fingers) Left Right Full Full Extraocular Movement Right Left Full Full Neuro/Psych Oriented x3: Yes Mood/Affect: Normal Dilation Both eyes: 1.0% Mydriacyl, 2.5% Dar Synephrine @ 1:32 PM Additional Tests Color Right Left Ishihara 16/16 16/16 Slit Lamp and Fundus Exam External Exam Right Left External Normal Normal Slit Lamp Exam Right Left Lids/Lashes Normal Normal Conjunctiva/Sclera White and quiet White and quiet Cornea Clear Clear Anterior Chamber Deep and quiet Deep and quiet Iris Round and reactive Round and reactive Lens Clear Clear Vitreous PVD Normal Fundus Exam Right Left Disc gr 2-3 worsening edema with few peripapillary hemorrhages gr 2-3 worsening edema with few peripapillary hemorrhages Macula Normal Normal Vessels dilated and tortuous dilated and tortuous Periphery small resolving VH inferotemporally small resolving VH inferonasally, 1 blot heme temporally Studies 03/02/2024: RETINAL ANALYSIS OCT Assessment/Plan: Sarah Mckeon is a 38 year old female Worsening papilledema, both eyes Hx of Elevated ICP Prior presentation: Elevated discs OU with prior Likely grade 3-4, though with difficult visualization of the surrounding blood vessels due to obscuration from heme. CT with multiple indications of increased ICP- scleral indentation - Presentation: Denies TVOs, denies pulsatile tinnitus - Risk factors: obesity with BMI:46.9, pulse of high dose steroids :dexamethasone 8-12mg from 09/05-09/10, Setting of AML - VA 20/20, color full - Exam notable for grade 3-4 disc edema with hemorrhages ( worsened by platelet value), opening pressure of LP was unmeasured 10/01/23. LP with opening pressure measured on 10/06/23 with 31 cm H2O measured, confirming increased ICP. MRV: no thrombosis, stenosis of multiple sinuses c/w IIH. Neurology states this is cavernous sinus thrombosis in their note. 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 VA 20/30 OD 20/25 OS, IOP wnl, color vision full, Exam with diffuse SPEE OU, OCT with continued improved edema, HVF with improved visual hurt, resolving hemorrhages on DFE - 03/02/24 f/u improved VA 20/20 OU, IOP wnl, color vision full, HVF full field OD, possible enlarged blind spot OS with good reliability OU, however worsening OCT-H nerve 193 OD, 159 OS increased from prior. 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 Stable creamy lesions on exam. -OCT macula with elevation near bruchs membrane at the location of creamy small lesions. -Vast improvement of creamy infiltrates of the retina in both eyes since initial exam. - So far likely etiology is leukemic infiltration of the retina vs. Possible infectious etiology. PLAN: - Will send message to patient's oncology team to recommend restarting diamox 250 MG BID due to worsening papilledema on exam today, patient has f/u with them tomorrow - Refer patient to [facility] Neuro-Ophthalmology for further evaluation and assessment - RTC 1 month, Round Top OCT-Nerve/RNFL, HVF 24-2, DFE. - Follow up next available with Retina Service. - Message sent to Dr. Winston requesting restarting Diamox 250 mg PO BID. Patient discussed with and seen by Dr. Hobson. Shannan Woods MD Ophthalmology Associated attestation - Song Hobson MD - 03/02/2024 2:42 PM CDT I have examined the patient [...] cm H2O measured, confirming increased ICP. Patient denies headaches, tinnitus, diplopia, TVOs. Acuity is good OU. Color [...] OD, 97% OS), (-2.9 OD, -3.8 OS). 03/02/2024 (today): full field OD, full field OS, good reliability OD, good reliability OS. (37 OD, 38 OS), (98% OD, 97% OS), (-2.5 OD, -2.4 OS). Review of Round Top OCT-Nerve/RNFL (central avg RNFL): 09/30/2023: 180 OD, 257 OS 10/02/2023: 175 OD, 165 OS 10/13/2023: 153 OD, 134 OS 03/02/2024 (today): 193 OD, 159 OS Summary: Patient is asymptomatic. Acuity is good OU. Color Plates are normal OU. Visual hurt are full OU. Round Top OCT measurement of edema is worsening since stopping Diamox. PLAN: - Message to patient's oncology team to recommend restarting diamox 250 MG BID due to worsening papilledema on exam today. - Refer patient to [facility] Neuro-Ophthalmology for further evaluation and assessment - RTC 1 month, Round Top OCT-Nerve/RNFL, HVF 24-2, DFE. - Follow up next available with [facility]. - Message sent to Dr. Winston requesting restarting Diamox 250 mg PO BID. See resident note for further details. Song Hobson MD, PhD Attending, Cornea and Anterior Segment Service Date of Service: 03/02/2024 documented in this encounter Plan of Treatment Upcoming Encounters Date Type Department Care Team (Late st Contact Info) Description 10/27/2024 10:30 AM FINANCIAL SERVICES INTERNSHIP Appointment [facility] [address] [place] [address] Hussain Carias MD [address] [place] [address] Britni Winston PA-C [address] [place] [address] 11/17/2024 9:00 AM FINANCIAL SERVICES INTERNSHIP Office Visit [facility] - Ophthalmology [facility] [facility], [place] [phone] Song Hobson MD [facility]5 [facility] [place] [address] Pending Results Name Type Priority Associated Diagnoses Date /Time [employer] FIELD EXTENDED Ophthalmology Routine IIH (idiopathic intracranial hypertension) 03/02/2024 12:52 PM CDT Scheduled Orders Name Type Priority Associated Diagnoses Orde r Schedule [employer] FIELD EXTENDED Ophthalmology Routine Papilledema associated with increased intracranial pressure Expected: 03/02/2024, Expires: 05/02/2025 documented as of this encounter Results * RETINAL ANALYSIS OCT (03/02/2024 12:52 PM CDT) Anatomical Region Laterality Modality Head External-Camera Photography Narrative 03/02/2024 2:12 PM CDT Images from the original result were not included. Song Hobson MD OPHTHALMOLOGY SCHED ORD W PACS documented in this encounter Visit Diagnoses Diagnosis Papilledema associated with increased intracranial pressure- Primary IIH (idiopathic intracranial hypertension)- Primary Benign intracranial hypertension documented in this encounter Care Teams Roof Fixer Relationship Specialty Start Date End Date Nilam Mayers MD [address] [place] [phone] PCP - General Family Medicine 09/04/23 04/18/24 documented as of this encounter
--- OUTSIDE RECORDS SUMMARY | 2024-08-31 21:26 | XMS_ITS | Encounter Summary ---
Author Organization [facility] Address [address] [place] [address] [place] [address] Care Team Providers Care Shelter Case Manager Name Role Phone Nilam Mayers MD Primary Care Provider +1- [phone] Encounter Details Date Type Department Care Team (Latest Contact Info) Description 01/30/2024 Travel Social History Tobacco Use Types Packs/Day [...] and heating? Not hard at all 01/19/2024 [facility] [place] of Occupat ional Health - Occupational Stress [...] place to sleep or slept in a penitentiary (including now)? No 01/19/2024 Sex and Gender [...] st Contact Info) Description 10/27/2024 10:30 AM CLOTH COVERER Appointment [facility] [address] [place] [address] Hussain Carias MD [address] [place] [address] Britni Winston, PABaronC [address] [place] [address] 11/17/2024 9:00 AM CLOTH COVERER Office Visit [facility] Physician Group - Ophthalmology [address] [place] [phone] Song Hobson MD [address] [place] [address] DEPT [place] [phone] documented as of this encounter Visit Diagnoses Not on filedocumented in this encounter Care Teams Shelter Case Manager Relationship Specialty Start Date End Date Nilam Mayers MD [address] [place] [phone] PCP - General Family Medicine 09/04/23 04/18/24 documented as of this encounter
--- OUTSIDE RECORDS SUMMARY | 2024-08-31 21:26 | XMS_ITS | Encounter Summary ---
Author Organization [facility] Address [address] [place], [place] [address] [address] Care Team Providers Care Switchboard Troubleshooter Name Role Phone Nilam Mayers MD Primary Care Provider +1- [phone] Encounter Details Date Type Department Care Team (Latest Contact Info) Description 02/26/2024 10:58 AM CDT - 02/26/2024 11:59 PM T Hospital Encounter [facility] [address] [place] [address] Hussain Carias MD [address] [place] [address] Britni Winston, PABaronC [address] [place] [address] Discharge Disposition: Home or Self [...] and heating? Not hard at all 01/19/2024 [facility] of Occupat ional Health - Occupational Stress [...] Sign Reading Time Taken Comments Blood Pressure 114/80 02/26/2024 1:05 PM CDT Pulse 91 02/26/2024 1:05 PM CDT Temperature 36.3 ??C (97.3 ??F) 02/26/2024 1:05 PM CD T Respiratory Rate 18 02/26/2024 1:05 PM CDT Oxygen Saturation 100% 02/26/2024 1:05 PM CDT Inhaled Oxygen Concentration - - Weight 108.8 kg (239 lb 14.4 oz) 02/26/2024 1:05 PM CDT Height - - Body Mass Index 43.88 02/26/2024 11:36 AM CDT documented in this encounter Functional [...] 01/23/2024 03/31/2024 posaconazole (Noxafil) 100 MG tabletIndications:Ac [place] myeloid leukemia in remission (HCC) Take 3 [...] 01/23/2024 06/25/2024 valACYclovir (Valtrex) 500 MG tabletIndications:Ac [place] myeloid leukemia in remission (HCC) Take 1 (one) tablet by mouth 2 times daily 60 tablet 11 11/03/2023 08/23/2024 documented as of this encounter Plan of Treatment Upcoming Encounters Date Type Department Care Team (Late st Contact Info) Description 10/27/2024 10:30 AM POURED WALL FOREMAN Appointment [facility] [address] [place] [address] Hussain Carias MD [address] [place] [phone] Britni Winston PAChristianne [address] [place] [address] 11/17/2024 9:00 AM POURED WALL FOREMAN Office Visit [facility] Physician Group - Ophthalmology [address] [place] [phone] Song Hobson MD [facility] [place] [phone] documented as of this encounter Procedures Procedure Name Priority Date/Time Associated Diagnosis Comments NPM1 MUTATION DETECTION PCR Routine 02/26/2024 1:12 PM CDT Acute myeloid leukemia in remission (HCC) URIC ACID BLOOD STAT 02/26/2024 1:12 PM CDT Acute myeloid leukemia in remission (HCC) TYPE + SCREEN PANEL STAT 02/26/2024 1 :12 PM CDT Acute myeloid leukemia in remission (HCC) SLIDE SCAN HEMATOLOGY STAT 02/26/2024 1:12 PM CDT Acute myeloid leukemia in remission (HCC) CBC W AUTO DIFFERENTIAL STAT 02/26/2024 1:12 PM CDT Acute myeloid leukemia in remission (HCC) COMPREHENSIVE METABOLIC PANEL STAT 02/26/2024 1:12 PM CDT Acute myeloid leukemia in remission (HCC) PHOSPHORUS BLOOD STAT 02/26/2024 1:12 PM CDT Acute myeloid leukemia in remission (HCC) MAGNESIUM BLOOD STAT 02/26/2024 1:12 PM CDT Acute myeloid leukemia in remission (HCC) LDH BLOOD STAT 02/26/2024 1:12 PM CDT Acute myeloid leukemia in remission (HCC) documented in this encounter Results * (ABNORMAL) SLIDE SCAN HEMATOLOGY (02/26/2024 1:12 PM CDT) RBC Morphology REVIEWED 02/26/2024 2:09 PM CDT [facility] Microcytosis MODERATE(A) (none) 02/26/2024 2:09 PM CDT [facility] Polychromatic Cells MODERATE(A) (none) 02/26/2024 2:09 PM CDT [facility] Schistocytes FEW(A) (none) 02/26/2024 2:09 PM CDT [facility] Blood BLOOD SPECIMEN / Unknown Venipuncture / Unknown 02/26/2024 1:12 PM CDT 02/26/2024 1:23 PM CDT Britni Winston PA-C LAB - HEMATOLOGY ORD ERABLES [facility] [address] [place] [address], [facility] [phone] * NPM1 MUTATION DETECTION PCR (02/26/2024 1:12 PM CDT) NPM1 Source Whole Blood 03/02/2024 2:47 PM CDT [facility] [employer] ([facility]) NPM1 Result Not Detected 03/02/2024 2:47 PM CDT [facility] ([facility]) Comment: This result has been reviewed and approved by Shar Elaine M.D. A NPM1 (type A, B, or D) mutation was not detected. INTERPRETIVE INFORMATION: NPM1 Mutation Detection ?by RT-PCR, [...] developed and its performance characteristics determined by [facility]. It has not been cleared or approved by the [place] Food and Drug Administration. This test was performed in a CLIA certified laboratory and is intended for clinical purposes. NPM1 Ratio 0.0000 03/02/2024 2:47 PM CDT [facility] ([facility]) Comment: Performed By: [facility] [address] [place] [address] Federal Law Clerk: Ebenezer Shipman MD, PhD CLIA Number: [id number] BLOOD SPECIMEN / Unknown 02/26/2024 1:12 PM CDT 02/26/2024 1:21 PM CDT Britni Winston PA-C LAB - CHEMISTRY JON NAIDU [facility] [employer] [facility]) [address] [place] [address] * TYPE + SCREEN PANEL (02/26/2024 1:12 PM CDT) Antibody Screen NEG 2:11 PM CDT [facility] ABO Rh O POS 02/26/2024 2:11 PM CDT [facility] Blood Bank BLOOD SPECIMEN / Unknown Venipuncture / Unknown 02/26/2024 1:12 PM CDT 02/26/2024 1:27 PM CDT Britni Winston PA-C LAB - BLOOD BANK ORD ERAJANES Performing Organization Address City/[facility]/ZIP Co de Phone Number [facility] [address] [place] [id number], [place] [phone] * URIC ACID BLOOD (02/26/2024 1:12 PM CDT) Uric Acid 4.7 2.6 - 6.0 mg/dL 02/26/2024 1:51 PM CDT [facility] Blood BLOOD SPECIMEN / Unknown Venipuncture / Unknown 02/26/2024 1:12 PM CDT 02/26/2024 1:22 PM CDT Britni Winston PA-C LAB - CHEMISTRY ORDE ELYSIA Performing Organization Address [facility]/ZIP Co de Phone Number [facility] [address] [address], [place] [phone] * LDH BLOOD (02/26/2024 1:12 PM CDT) LDH Total 218 125 - 243 Units/L 02/26/2024 1:51 PM CDT [facility] Blood BLOOD SPECIMEN / Unknown Venipuncture / Unknown 02/26/2024 1:12 PM CDT 02/26/2024 1:22 PM CDT Britni Winston PA-C LAB - CHEMISTRY ORDE RABQI Performing Organization Address City/[facility]/ZIP Co de Phone Number [address] [address], [place] [phone] * (ABNORMAL) CBC WITH DIFFERENTIAL (02/26/2024 1:12 PM CDT) WBC 5.8 4.0 - 10.7 x10E9/L 02/26/2024 2:09 PM [facility] RBC Count 2.99(L) 3.90 - 5.20 x10E12/L 02/26/2024 2:09 PM [facility] Hemoglobin 9.6(L) 11.9 - 15.8 g/dL 02/26/2024 2:09 PM [facility] Hematocrit 28.5(L) 34.8 - 46.1 % 02/26/2024 2:09 PM [facility] MCV 95.3 80.0 - 98.0 fL 02/26/2024 2:09 PM [facility] MCH 32.1 26.7 - 33.6 pg 02/26/2024 2:09 PM [facility] MCHC 33.7 31.7 - 36.3 g/dL 02/26/2024 2:09 PM [facility] RDW-CV 24.4(H) 11.3 - 14.8 % 02/26/2024 2:09 PM [facility] Platelet Count 41(L) 150 - 420 x10E9/L 02/26/2024 2:09 PM [facility] MPV 11.1 7.8 - 11.4 fL 02/26/2024 2:09 PM [facility] Preliminary Absolute Neutrophil 3.75 1.60 - 7.50 x10E9/L 02/26/2024 2:09 PM [facility] Comment:Preliminary ANC pend ing manual confirmation Neutrophil % 64.9 41.0 - 74.0 % 02/26/2024 2:09 PM [facility] Lymphocyte % 18.0 17.0 - 47.0 % 02/26/2024 2:09 PM [facility] Monocyte % 15.7(H) 3.0 - 11.0 % 02/26/2024 2:09 PM [facility] Eosinophil % 0.7 0.0 - 7.0 % 02/26/2024 2:09 PM [facility] Basophil % 0.2 0.0 - 1.6 % 02/26/2024 2:09 PM [facility] Immature Granulocytes % 0.5 0.0 - 1.0 % 02/26/2024 2:09 PM CDT [facility] Neutrophil Absolute 3.75 1.60 - 7.50 x10E9/L 02/26/2024 2:09 PM CDT [facility] Lymphocyte Absolute 1.04 1.00 - 4.40 x10E9/L 02/26/2024 2:09 PM CDT [facility] Monocyte Absolute 0.91 0.15 - 1.00 x10E9/L 02/26/2024 2:09 PM CDT [facility] Eosinophil Absolute 0.04 0.00 - 0.60 x10E9/L 02/26/2024 2:09 PM CDT [facility] Basophil Absolute 0.01 0.00 - 0.13 x10E9/L 02/26/2024 2:09 PM CDT [facility] Blood BLOOD SPECIMEN / Unknown Venipuncture / Unknown 02/26/2024 1:12 PM CDT 02/26/2024 1:23 PM CDT Britni Winston PA-C LAB - HEMATOLOGY ORD ERABLES [address] [address], [facility] [phone] * MAGNESIUM BLOOD (02/26/2024 1:12 PM CDT) Magnesium 2.1 1.6 - 2.6 mg/dL 02/26/2024 1:51 PM CDT [facility] Blood BLOOD SPECIMEN / Unknown Venipuncture / Unknown 02/26/2024 1:12 PM CDT 02/26/2024 1:22 PM CDT Britni Winston PA-C LAB - CHEMISTRY ORDE RABQI [address] [address], [place] [phone] * (ABNORMAL) COMPREHENSIVE METABOLIC PANEL (02/26/2024 1:12 PM CDT) BUN 7 7 - 26 mg/dL 02/26/2024 1:51 PM [facility] Creatinine 0.66 0.56 - 0.96 mg/dL 02/26/2024 1:51 PM [facility] Sodium 144 136 - 145 mmol/L 02/26/2024 1:51 PM [facility] Potassium 3.8 3.5 - 4.5 mmol/L 02/26/2024 1:51 PM [facility] Chloride 113(H) 98 - 107 mmol/L 02/26/2024 1:51 PM [facility] CO2 21(L) 22 - 29 mmol/L 02/26/2024 1:51 PM [facility] Glucose 119(H) 70 - 115 mg/dL 02/26/2024 1:51 PM [facility] Calcium 9.4 8.4 - 10.2 mg/dL 02/26/2024 1:51 PM [facility] Protein Total 6.7 6.0 - 8.3 g/dL 02/26/2024 1:51 PM [facility] Albumin 3.5 3.4 - 5.0 g/dL 02/26/2024 1:51 PM [facility] Bilirubin Total 0.4 0.2 - 1.2 mg/dL 02/26/2024 1:51 PM [facility] Alkaline Phosphatase 74 40 - 150 U/L 02/26/2024 1:51 PM [facility] ALT 29 5 - 55 U/L 02/26/2024 1:51 PM [facility] AST 24 5 - 34 U/L 02/26/2024 1:51 PM [facility] Anion Gap 10 6 - 16 02/26/2024 1:51 PM [facility] BUN/Creatinine Ratio 11 7 - 23 02/26/2024 1:51 PM [facility] Osmolality Calculated 297(H) 275 - 295 mOsm/kg 02/26/2024 1:51 PM [facility] Albumin/Globulin Ratio 1.1 1.1 - 2.3 02/26/2024 1:51 PM [facility] eGFR by CKD-EPI >90 >=90 mL/min/1.7 3 m2 02/26/2024 1:51 PM CDT [facility] Blood BLOOD SPECIMEN / Unknown Venipuncture / Unknown 02/26/2024 1:12 PM CDT 02/26/2024 1:22 PM CDT Britni Winston PA-C LAB - CHEMISTRY JON NAIDU Performing Organization Address City/[facility]/ZIP Co de Phone Number [address] [address], [place] [phone] * (ABNORMAL) PHOSPHORUS BLOOD (02/26/2024 1:12 PM CDT) Phosphorus 2.8(L) 2.9 - 5.1 mg/dL 02/26/2024 1:51 PM CDT [facility] Blood BLOOD SPECIMEN / Unknown Venipuncture / Unknown 02/26/2024 1:12 PM CDT 02/26/2024 1:22 PM CDT Britni Winston PA-C LAB - CHEMISTRY JON NAIDU Performing Organization Address City/[facility]/ZIP Co de Phone Number [address] [address], [place] [phone] documented in this encounter Visit Diagnoses Diagnosis 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 documented in this encounter Care Teams Switchboard Troubleshooter Relationship Specialty Start Date End Date Nilam Mayers MD [address] [place] [phone] PCP - General Family Medicine 09/04/23 04/18/24 documented as of this encounter
--- OUTSIDE RECORDS SUMMARY | 2024-08-31 21:26 | XMS_ITS | Encounter Summary ---
Author Organization [facility] Address [address] [place], [place] [address] [address] Care Team Providers Care Medical Technicians Name Role Phone Nilam Mayers MD Primary Care Provider +1- [phone] Encounter Details Date Type Department Care Team (Late st Contact Info) Description 01/23/2024 Telephone [facility] CL[facility] [address] [place] [address] Beronica Lilly, RN Social History Tobacco Use Types Packs/Day [...] and heating? Not hard at all 01/19/2024 [facility] of Occupat ional Health - Occupational Stress [...] place to sleep or slept in a fpc (including now)? No 01/19/2024 Sex and Gender [...] encounter Miscellaneous Notes * Telephone Encounter - Beronica Lilly RN - 01/23/2024 4:39 PM CDT Coordinator left VM for patient to let her know that since she is getting discharged, her next appthas been scheduled in the BMT clinic. Appt scheduled for 01/25 @ 12:30pm. Provided [phone] as call back number. documented in this encounter Plan of Treatment Upcoming Encounters Date Type Department Care Team (Late st Contact Info) Description 10/27/2024 10:30 AM SHAPING MACHINE OPERATOR Appointment [facility] [address] [place] [address] Hussain Carias MD [address] [place] [phone] Britni Winston, PA-C [address] [place] [address] 11/17/2024 9:00 AM SHAPING MACHINE OPERATOR Office Visit [facility] - Ophthalmology [address] [place] [address], [place] [phone] Song Hobson MD [facility]5 [facility] [place] [address] documented as of this encounter Visit Diagnoses Not on filedocumented in this encounter Care Teams Medical Technicians Relationship Specialty Start Date End Date Nilam Mayers MD [address] [place] [phone] PCP - General Family Medicine 09/04/23 04/18/24 documented as of this encounter
--- OUTSIDE RECORDS SUMMARY | 2024-08-31 21:26 | XMS_ITS | Encounter Summary ---
Author Organization [facility] Address [address] [place], [place] [address] [address] Care Team Providers Care Customer Solutions Representative Name Role Phone Nilam Mayers MD Primary Care Provider +1- [phone] Reason for Visit * Reason Comments Establish Care Follow up Encounter Details Date Type Department Care Team (Late st Contact Info) Description 02/26/2024 12:30 PM CDT Office Visit [facility] - General Surgery [address] [place] [address], [place] [address] Lizzie Escudero MD [address] [place] [address] [address] [place] [address] Anal or rectal pain (Primary Dx); Anal fissure Social History Tobacco Use Types Packs/Day Years Used Date Smoking Tobacco: Former Cigarettes 1 6 2 005 - 2010 Smokeless Tobacco: Never Tobacco Cessation:Counseling Given: No Alcohol Use Standard Drinks/Week Comments Yes 0 [...] and heating? Not hard at all 01/19/2024 [facility] [place] of Occupat ional Health - Occupational Stress [...] to sleep or slept in a senior living (including now)? No 01/19/2024 Sex and Gender Information Value Date Recorded Sex Assigned at Not on file Gender Identity Female 02/13/2024 1:12 PM CDT Sexual Orientation Not on file documented as of this encounter Last Filed Vital Signs Vital Sign Reading Time Taken Comments Blood Pressure 119/82 02/26/2024 11:36 AM CDT Pulse 111 02/26/2024 11:36 AM CDT Temperature 36.1 ??C (97 ??F) 02/26/2024 11:36 AM CDT Respiratory Rate 18 02/26/2024 11:36 AM CDT Oxygen Saturation 99% 02/26/2024 11:36 AM CDT Inhaled Oxygen Concentration - - Weight 108.9 kg (240 lb) 02/26/2024 11:36 AM CDT Height 157.5 cm (5' 2 ) 02/26/2024 11:36 AM CDT Body Mass Index 43.9 02/26/2024 11:36 AM CDT documented in this [...] No 01/19/2024 documented as of this encounter Patient Instructions * Patient Instructions* Carlos Lemus - 02/26/2024 12:20 PM CDT Posterior anal fissure, now asymptomatic without pain. Recommend high fiber diet (25-35g in a day) At least 65 oz of water daily. Avoid straining and constipation. Follow-up in 4-6 months or PRN Recommend screening colonoscopy at 46. Please call with any additional questions [phone] documented in this encounter Progress Notes * Carlos Lemus - 02/26/2024 12:21 PM CDT Images from the original note were not included. Colorectal Surgery Clinic Progress Note Sarah Mckeon (38 year old female) Date: 02/26/2024 Assessment and Plan: Sarah Mckeon is a 38 year old female with who on 01/13 developed severe sharp/tearing pain anal painwith CT imaging was notable for perirectal fat stranding. She was started on a 6 day course of cefepime and flagyl and given topical nifedipine cream, but with WBC count of 0.7 and ANC 0.06, anorectal exam was deferred. She reports complete resolution of symptoms 2-3 days after discharge. Anoscopy in clinic today was notable for a posterior anal fissure without active bleeding. Management options for refractory anal fissure including anal sphincter botox injections with nifedipine cream, as well as definitive surgical management with sphincterotomy were discussed. At this time, the patient is asymptomatic and there is no indication to proceed with injections or surgery. Plan: - High fiber diet (25-35g of fiber daily) - At least 64 oz of water daily - Avoid straining and constipation - Follow-up in 4-6 months or PRN - Call clinic with any additional questions - Recommend screening colonoscopy at 46. 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 She previously had severe constipation with straining. CT imaging was notable for perirectal fat stranding. She was started on a 6 day course of cefepime and flagyl and given topical nifedipine cream. Her labs were notable for WBC count of 0.7 (ANC 0.06) and so anorectal exam was deferred. Subjective & Interval History - Her anal pain had completely resolved 2-3 days after discharge with antibiotics and Nifedipine cream. - She has been taking Miralax daily and has had regular daily bowel movements without straining. - Noticed one episode of nerissa blood in stool but notes this may have been menorrhagia. - Denies abdominal pain, nausea, vomiting, fevers, chills. Objective: Home Medications Carboxymethylcellulose Sodium (ARTIFICIAL TEARS OP) dilTIAZem 1% CREA Apply to affected area 2 times daily famotidine (Pepcid) 20 MG tablet Take [...] 2 (two) tablets by mouth once daily (Patient not taking: Reported on 02/13/2024) prochlorperazine (Compazine) 10 MG tablet Take 1 (one) tablet by mouth every 8 hours as needed for Nausea/Vomiting valACYclovir (Valtrex) 500 MG tablet Take 1 (one) tablet by mouth 2 times daily Vitals: 02/26/24 1136 BP: 119/82 Pulse: (!) 111 Resp: 18 Temp: 97 ??F (36.1 ??C) SpO2: 99% Weight: 108.9 kg (240 lb) Height: 1.575 m (5' 2 ) Physical Exam: GEN: In no acute distress. Alert and appropriate. HEENT: Normocephalic. Atraumatic. Resp: Clear bilaterally. Normal work of breathing on room air CV: Regular rate and rhythm. Abd: Soft and nontender to palpation. Non distended. No rebound or guarding. Ext: no cyanosis, clubbing, or edema Psych: appropriate mood and affect Anorectal: On ASHLEY, no palpable lesions, masses, fissures, or external hemorrhoid columns. Appropriate sphincter tone. On anoscopy, approximately 1 cm length superficial posterior wall anal fissure without active bleeding. Investigations: Labs: CBC Recent Labs Component Name 02/20/24 0943 02/13/24 1057 02/10/24 0929 02/06/24 0958 WBC 7.2 5.3 4.8 4.1 HGB 9.2* 8.7* 8.5* 7.0* HCT 27.0* 25.9* 25.0* 20.6* PLTCOUNT 46* 45* 37* 33* BMP Recent Labs Component Name 02/20/24 0943 02/13/24 1057 02/10/24 0929 02/06/24 0958 NA 140 140 141 141 POTASSIUM 3.6 3.6 3.6 3.4* CL 111* 111* 110* 111* CO2 21* 22 19* 21* BUN 7 6* 9 7 CREATININE 0.65 0.66 0.66 0.58 GLUCOSE 159* 190* 175* 156* CALCIUM 9.5 9.4 9.9 9.6 MAGNESIUM 2.0 2.0 2.0 1.9 PHOS 3.3 2.8* 3.4 2.8* LFTs Recent Labs Component Name 02/20/24 0943 02/13/24 1057 02/10/24 0929 02/06/24 0958 PROT 6.7 6.6 6.6 6.5 ALB 3.5 3.4 3.4 3.3* TBILI 0.4 0.3 0.4 0.4 ALT 24 25 22 24 AST 17 17 17 13 ALKPHOS 81 76 78 71 Coag Recent Labs Component Name 09/13/23205109/12/23204509/11/23200109/09/23 2138 PT 13.1 13.6 14.4 14.1 PTT 23.2 20.9* 21.9* 21.3* INR 1.0 1.1 1.2 1.1 Radiology Impressions: CT CHEST PE W ABD PELVIS W CONT Result Date: 01/19/2024 Impression: 1.No evidence of central pulmonary embolism. [...] colitis. > Dictated by Partha Ryan MD (resident physician). I, Feliciano Ordaz MD have personally reviewed and interpreted this examination/study. > Interpreting Provider: Feliciano Ordaz MD on 01/19/2024 11:[address] ABDOMEN PELVIS W CONTRAST Result Date: 01/16/2024 Impression: 1.Central filling defect within a segmental [...] verification. > Dictated by Jeremy Valdes MD (resident physician). > Dictatedby Jeremy Valdes MD (Analytical Lab Analyst) 01/16/2024 2:09 PM IArlyn MD have personally reviewed and interpreted this examination/study. > Interpreting Provider: Arlyn Gannon MD on 01/16/2024 4:49 PM Associated attestation - Lizzie Escudero MD - 02/27/2024 10:02 AM CDT 38F AML rectal pain on recent admission with suspected anal fissure. Clinically improved today. Denies pain, drainage. On exam posterior anal fissure noted. Recommend conservative measures as outlined above, can hold off on continuing nifedipine for now given resolution of symptoms. Attending Physician Supervisory Note I have verified the documentation of the medical student, including all history, exam and medical decision making details. I have personally performed a physical exam and have personally reviewed thedata to support my medical decision making as outlined in the medical students notes and I arrive independently at the same conclusion. Lizzie Escudero MD documented in this encounter Plan of Treatment Upcoming Encounters Date Type Department Care Team (Late st Contact Info) Description 10/27/2024 10:30 AM HAT CONDITIONER Appointment [facility] CL[facility] [address] [place] [address] Hussain Carias MD [address] [place] [phone] Britni Winston PA-C [address] [place] [address] 11/17/2024 9:00 AM HAT CONDITIONER Office Visit [facility] - Ophthalmology [address] [place] [phone] Song Hobson MD [address] [place] [address] [place] [address] documented as of this encounter Visit Diagnoses Diagnosis Anal or rectal pain- Primary Anal fissure documented in this encounter Care Teams Customer Solutions Representative Relationship Specialty Start Date End Date Nilam Mayers MD [address] [place] [phone] PCP - General Family Medicine 09/04/23 04/18/24 documented as of this encounter
--- OUTSIDE RECORDS SUMMARY | 2024-08-31 21:26 | XMS_ITS | Encounter Summary ---
Author Organization [facility] Address [address] [place] [address] Care Team Providers Care Senior Application Software Engineer Name Role Phone Nilam Mayers MD Primary Care Provider +1- [phone] Encounter Details Date Type Department Care Team (Latest Contact Info) Description 02/10/2024 8:58 AM CDT - 02/10/2024 11:59 PM T Hospital Encounter [facility] CL[facility] [address] [place] [address] Hussain Carias MD [address] [place] [address] Kathryn Gomez, WOUND SPECIALIST-DIGITAL IMAGER [address] [place], [place] [phone] Discharge Disposition: Home or Self Care Social [...] Never 01/19/2024 Overall Financial Resource Strain (CARDIA) Moriah r Date Recorded How hard is it for you to pa y for the very basics like food, housing, medical care, and heating? Not hard at all 01/19/2024 [facility] [place] of Occupat ional Health - Occupational Stress [...] Sign Reading Time Taken Comments Blood Pressure 123/76 02/10/2024 11:24 AM CDT Pulse 81 02/10/2024 11:24 AM CDT Temperature 36.7 ??C (98 ??F) 02/10/2024 11: 24 AM CDT Respiratory Rate 20 02/10/2024 11:2 4 AM CDT Oxygen Saturation 100% 02/10/2024 11: 24 AM CDT Inhaled Oxygen Concentration - - Weight 108.1 kg (238 lb 6.4 oz) 024 11:24 AM CDT Height - - Body Mass Index 43.6 01/19/2024 4:24 PM CDT documented in this [...] 01/23/2024 03/31/2024 posaconazole (Noxafil) 100 MG tabletIndications: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) Take 3 [...] 01/23/2024 06/25/2024 valACYclovir (Valtrex) 500 MG tabletIndications: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) Take 1 (one) tablet by mouth 2 times daily 60 tablet 11 11/03/2023 08/23/2024 documented as of this encounter Plan of Treatment Upcoming Encounters Date Type Department Care Team (Late st Contact Info) Description 10/27/2024 10:30 AM CREDIT COLLECTION SPECIALIST Appointment [facility] B[facility] [address] [place] [address] Hussain Carias MD [address] [place] [address] Britni Winston, PA-C [address] [place] [address] 11/17/2024 9:00 AM CREDIT COLLECTION SPECIALIST Office Visit [facility] - Ophthalmology [address] [facility], [place] [address] Song Hobson MD [address] [facility] DEPT [place] [address] documented as of this encounter Procedures Procedure Name Priority Date/Time Associated Diagnosis Comments TYPE + SCREEN PANEL STAT 02/10/2024 9 :29 AM CDT Acute myeloid leukemia in remission (HCC) CBC W AUTO DIFFERENTIAL STAT 02/10/2024 9:29 AM CDT Acute myeloid leukemia in remission (HCC) COMPREHENSIVE METABOLIC PANEL STAT 02/10/2024 9:29 AM CDT Acute myeloid leukemia in remission (HCC) PHOSPHORUS BLOOD STAT 02/10/2024 9:29 AM CDT Acute myeloid leukemia in remission (HCC) MAGNESIUM BLOOD STAT 02/10/2024 9:29 AM CDT Acute myeloid leukemia in remission (HCC) documented in this encounter Results * TYPE + SCREEN PANEL (02/10/2024 9:29 AM CDT) Antibody Screen NEG 10:40 AM CDT [facility] BLOOD [facility] LAB ABO Rh O POS 02/10/2024 10:40 AM CDT [facility] Blood Bank BLOOD SPECIMEN / Unknown Venipuncture / Unknown 02/10/2024 9:29 AM CDT 02/10/2024 9:52 AM CDT Britni Winston PA-C LAB - BLOOD BANK ORD ERABLES [facility]LO[facility] [address] [place] [address], [facility] [phone] * (ABNORMAL) CBC WITH DIFFERENTIAL (02/10/2024 9:29 AM [facility]) WBC 4.8 4.0 - 10.7 x10E9/L 02/10/2024 10:30 AM [facility] RBC Count 2.81(L) 3.90 - 5.20 x10E12/L 02/10/2024 10:30 AM [facility] Hemoglobin 8.5(L) 11.9 - 15.8 g/dL 02/10/2024 10:30 AM [facility] Hematocrit 25.0(L) 34.8 - 46.1 % 02/10/2024 10:30 AM [facility] MCV 89.0 80.0 - 98.0 fL 02/10/2024 10:30 AM [facility] MCH 30.2 26.7 - 33.6 pg 02/10/2024 10:30 AM [facility] MCHC 34.0 31.7 - 36.3 g/dL 02/10/2024 10:30 AM [facility] RDW-CV 20.9(H) 11.3 - 14.8 % 02/10/2024 10:30 AM [facility] Platelet Count 37(L) 150 - 420 x10E9/L 02/10/2024 10:30 AM [facility] MPV 11.2 7.8 - 11.4 fL 02/10/2024 10:30 AM [facility] Preliminary Absolute Neutrophil 2.78 1.60 - 7.50 x10E9/L 02/10/2024 10:30 AM [facility] Comment:Preliminary ANC pend ing manual confirmation Neutrophil % 57.8 41.0 - 74.0 % 02/10/2024 10:30 AM [facility] Lymphocyte % 23.5 17.0 - 47.0 % 02/10/2024 10:30 AM [facility] Monocyte % 17.9(H) 3.0 - 11.0 % 02/10/2024 10:30 AM [facility] Eosinophil % 0.2 0.0 - 7.0 % 02/10/2024 10:30 AM [facility] Basophil % 0.0 0.0 - 1.6 % 02/10/2024 10:30 AM [facility] Immature Granulocytes % 0.6 0.0 - 1.0 % 02/10/2024 10:30 AM [facility] Neutrophil Absolute 2.78 1.60 - 7.50 x10E9/L 02/10/2024 10:30 AM [facility] Lymphocyte Absolute 1.13 1.00 - 4.40 x10E9/L 02/10/2024 10:30 AM [facility] Monocyte Absolute 0.86 0.15 - 1.00 x10E9/L 02/10/2024 10:30 AM [facility] Eosinophil Absolute 0.01 0.00 - 0.60 x10E9/L 02/10/2024 10:30 AM [facility] Basophil Absolute 0.00 0.00 - 0.13 x10E9/L 02/10/2024 10:30 AM [facility] NRBC 0.8(H) <=0.0 /100 WBC 02/10/2024 10:30 AM [facility] Blood BLOOD SPECIMEN / Unknown Venipuncture / Unknown 02/10/2024 9:29 AM CDT 02/10/2024 9:38 AM CDT Britni Winston PA-C LAB - HEMATOLOGY ORD GELY Performing Organization Address [facility] de Phone Number [facility] [address] [place] [address], [facility] [phone] * MAGNESIUM BLOOD (02/10/2024 9:29 AM CDT) Magnesium 2.0 1.6 - 2.6 mg/dL 02/10/2024 10:09 AM T [facility] Blood BLOOD SPECIMEN / Unknown Venipuncture / Unknown 02/10/2024 9:29 AM CDT 02/10/2024 9:37 AM CDT Britni Winston PA-C LAB - CHEMISTRY ORDE RABQI [facility] [address] [place] [address], [facility] [phone] * (ABNORMAL) COMPREHENSIVE METABOLIC PANEL (02/10/2024 9:29 AM [facility]) BUN 9 7 - 26 mg/dL 02/10/2024 10:09 AM [facility] Creatinine 0.66 0.56 - 0.96 mg/dL 02/10/2024 10:09 AM [facility] Sodium 141 136 - 145 mmol/L 02/10/2024 10:09 AM [facility] Potassium 3.6 3.5 - 4.5 mmol/L 02/10/2024 10:09 AM [facility] Chloride 110(H) 98 - 107 mmol/L 02/10/2024 10:09 AM [facility] CO2 19(L) 22 - 29 mmol/L 02/10/2024 10:09 AM [facility] Glucose 175(H) 70 - 115 mg/dL 02/10/2024 10:09 AM [facility] Calcium 9.9 8.4 - 10.2 mg/dL 02/10/2024 10:09 AM [facility] Protein Total 6.6 6.0 - 8.3 g/dL 02/10/2024 10:09 AM [facility] Albumin 3.4 3.4 - 5.0 g/dL 02/10/2024 10:09 AM [facility] Bilirubin Total 0.4 0.2 - 1.2 mg/dL 02/10/2024 10:09 AM [facility] Alkaline Phosphatase 78 40 - 150 U/L 02/10/2024 10:09 AM [facility] ALT 22 5 - 55 U/L 02/10/2024 10:09 AM [facility] AST 17 5 - 34 U/L 02/10/2024 10:09 AM [facility] Anion Gap 12 6 - 16 02/10/2024 10:09 AM [facility] BUN/Creatinine Ratio 14 7 - 23 02/10/2024 10:09 AM [facility] Osmolality Calculated 295 275 - 295 mOsm/kg 02/10/2024 10:09 AM CDT [facility] Albumin/Globulin Ratio 1.1 1.1 - 2.3 02/10/2024 10:09 AM T [facility] eGFR by CKD-EPI >90 >=90 mL/min/1.7 3 m2 02/10/2024 10:09 AM CDT [facility] Blood BLOOD SPECIMEN / Unknown Venipuncture / Unknown 02/10/2024 9:29 AM CDT 02/10/2024 9:37 AM CDT Britni Winston PA-C LAB - CHEMISTRY [place] [address] [address], [facility] [phone] * PHOSPHORUS BLOOD (02/10/2024 9:29 AM CDT) Phosphorus 3.4 2.9 - 5.1 mg/dL 02/10/2024 10:09 AM T [facility] Blood BLOOD SPECIMEN / Unknown Venipuncture / Unknown 02/10/2024 9:29 AM CDT 02/10/2024 9:37 AM CDT Britni Winston PA-C LAB - CHEMISTRY [place] [address] [address], [place] [phone] documented in this encounter Visit Diagnoses Diagnosis 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 documented in this encounter Care Teams Senior Application Software Engineer Relationship Specialty Start Date End Date Nilam Mayers MD [address] [place] [phone] PCP - General Family Medicine 09/04/23 04/18/24 documented as of this encounter
--- OUTSIDE RECORDS SUMMARY | 2024-08-31 21:26 | XMS_ITS | Encounter Summary ---
Author Organization [facility] Address [address] [place] [address] [place] [address] Care Team Providers Care Vehicle Care Specialist Name Role Phone Nilam Mayers MD Primary Care Provider +1- [phone] Encounter Details Date Type Department Care Team (Latest Contact Info) Description 01/26/2024 Travel Social History Tobacco Use Types Packs/Day [...] and heating? Not hard at all 01/19/2024 [facility] [place] of Occupat ional Health - Occupational Stress [...] Contact Info) Description 10/27/2024 10:30 AM COMMUNITY AFFAIRS DIRECTOR Appointment [facility] BMT CLINIC [address] [place] [address] Hussain Carias MD [address] [place] [address] Britni Winston, PABaronC [address] [place] [address] 11/17/2024 9:00 AM COMMUNITY AFFAIRS DIRECTOR Office Visit [facility] - Ophthalmology [address] [place] [phone] Song Hobson MD [address] [place] [address] [place] [phone] documented as of this encounter Visit Diagnoses Not on filedocumented in this encounter Care Teams Vehicle Care Specialist Relationship Specialty Start Date End Date Nilam Mayers MD [address] [place] [phone] PCP - General Family Medicine 09/04/23 04/18/24 documented as of this encounter
--- OUTSIDE RECORDS SUMMARY | 2024-08-31 21:26 | XMS_ITS | Encounter Summary ---
Author Organization [facility] Address [address] [place] [address] [place] [address] Care Team Providers Care Dog Track Kennel Manager Name Role Phone Nilam Mayers MD Primary Care Provider +1- [phone] Encounter Details Date Type Department Care Team (Latest Contact Info) Description 02/06/2024 Travel Social History Tobacco Use Types Packs/Day [...] at all 01/19/2024 [facility] [place] of Occupat ional Health - Occupational [...] st Contact Info) Description 10/27/2024 10:30 AM LATH HAND Appointment [facility] BMT CLINIC [address] [place] [address] Hussain Carias MD [address] [place] [address] Britni Winston, PABaronC [address] [place] [address] 11/17/2024 9:00 AM LATH HAND Office Visit [facility] - Ophthalmology [address] [place] [phone] Song Hobson MD [address] [place] [address] [place] [phone] documented as of this encounter Visit Diagnoses Not on filedocumented in this encounter Care Teams Dog Track Kennel Manager Relationship Specialty Start Date End Date Nilam Mayers MD [address] [place] [phone] PCP - General Family Medicine 09/04/23 04/18/24 documented as of this encounter
--- OUTSIDE RECORDS SUMMARY | 2024-08-31 21:26 | XMS_ITS | Encounter Summary ---
Author Organization [facility] Address [address] [place], [place] [address] [address] Care Team Providers Care Psychologist Private Practice Name Role Phone Nilam Mayers MD Primary Care Provider +1- [phone] Reason for Referral * Evaluate (Routine) - Open Specialty Diagnoses / Procedures Referred By Contac t Referred To Contact Maternal Medicine Diagnoses Ovarian mass Britni Winston PA-C [address] [place] [address] [facility] [address] [place] [address]. [address] [place] [address] Referral ID Status Reason Start Date Expiration Date V isits Requested Visits Authorized [id number] Open Specialty Services Required 01/30/2024 01/29/2025 1 1 Encounter Details Date Type Department Care Team (Latest Contact Info) Description 01/30/2024 10:35 AM CDT - 01/30/2024 11:59 PM CDT Hospital Encounter [facility] [address] [place] [address] Hussain Carias MD [address] [place] [phone] Britni Winston PA-C [address] [place] [address] Discharge Disposition: Home or Self [...] and heating? Not hard at all 01/19/2024 [facility] of Occupat ional Health - Occupational Stress [...] Sign Reading Time Taken Comments Blood Pressure 138/89 01/30/2024 12:03 PM CDT Pulse 86 01/30/2024 12:03 PM CDT Temperature 36.3 ??C (97.4 ??F) 01/30/2024 1 2:03 PM CDT Respiratory Rate 20 01/30/2024 12:0 3 PM CDT Oxygen Saturation 100% 01/30/2024 12: 03 PM CDT Inhaled Oxygen Concentration - - Weight 109.5 kg (241 lb 4.8 oz) 024 12:03 PM CDT Height - - Body Mass Index 44.13 01/19/2024 4:24 PM CDT documented in this [...] Progress Notes * Britni Winston PA-C - 01/30/2024 12:42 PM CDT Images from the original note were not included. HEMATOLOGY/ONCOLOGY INPATIENT PROGRESS NOTE Name: Sarah Mckeon Age: [age] year old Date of : 1985 Date of Service: 01/30/2024 Reason for Consult: AML HEMATOLOGY & ONCOLOGY [...] in August of 2023 was admitted to [facility] c/o flu like symptoms and ultimately had [...] controlled on current medication regimen. Interval History: S/p C4 HIDAC. Pt reports continued complete resolution of he rectal pain. Denies vaginal spotting today. Overall, feeling very well and energy is starting to return. Denies any complaints. Denies fevers, chills, nausea, vomiting, diarrhea, [...] unspecified 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 ([facility]) 09/06/2023 - Chemotherapy cytarabine (Cytosar) 460 [...] Active Treatment Days for Sarah Mckeon (until 01/31/2024) There are no remaining days before 01/31/2024. Medications SCHEDULED MEDICATIONS: Current Outpatient Medications Medication Sig Carboxymethylcellulose Sodium (ARTIFICIAL TEARS OP) diazePAM (Valium) 5 MG tablet Take 1 [...] area TID as needed for rectal pain) ondansetron (Zofran) 8 MG tablet Take one [...] (one) tablet by mouth 2 times daily Witfanta Jaclyn (Hemorrhoidal Hygiene) 50 % 1 Pad by Apply externally route as needed No current facility-administered medications for this encounter. Allergies Allergies Allergen Reactions Vancomycin Itching OBJECTIVE Physical Exam Vitals: 01/30/24 1203 BP: 138/89 Pulse: 86 Resp: 20 Temp: 97.4 ??F SpO2: 100% Weight: 109.5 kg (241 lb 4.8 oz) Wt Readings from Last 3 Encounters: 01/30/24 109.5 kg (241 lb 4.8 oz) 01/28/24 108.9 kg (240 lb) 01/26/24 109.6 kg (241 lb 11.2 oz) Karnofsky/ECO/0 General appearance - well-appearing, and [...] tenderness Laboratory Results Recent Labs Component Name 01/30/24 1057 01/28/24 1117 01/28/24 0944 01/26/24 1439 01/26/24 1239 01/03/24212701/02/24205101/01/24211712/31/232053 WBC 3.2* - 3.1* - 3.5* - 2.9* 3.6* 5.1 RBC 2.61* - 2.71* - 2.70* - 2.63* 2.80* 2.31* HGB 7.6* - 7.7* - 7.9* - 7.4* 7.9* 6.6* HCT 21.3* - 22.0* - 21.9* - 21.1* 22.4* 19.1* MCV 81.6 - 81.2 - 81.1 - 80.2 80.0 82.7 MCHC 35.7 - 35.0 - 36.1 - 35.1 35.3 34.6 PLTCOUNT 53* 64* 30* - 12* - 25* 32* 41* NEUTPCT - - - - - - 84.4* 87.5* 71.4 LYMPHPCT - - - - - - 11.4* 7.2* 10.0* NEUTABS 0.79* 1.06* - 0.65* 0.87* - 0.67* 0.67* - 2.44 3.14 3.66 LYMPHABS 1.50 - 1.67 - 1.86 - 0.33* 0.26* 0.51* BASOABS - - - - - - 0.00 0.00 0.00 - = values in this interval not displayed. Recent Labs Component Name 01/30/24 1057 01/28/24 0944 01/26/24 1239 POTASSIUM 3.6 3.6 3.4* CO2 21* 22 21* BUN 9 8 9 CREATININE 0.59 0.65 0.58 EGFR >90 >90 >90 GLUCOSE 152* 162* 155* CALCIUM 9.4 9.6 9.5 MAGNESIUM 2.0 2.0 1.8 PHOS 2.9 2.9 2.4* ALT 63* 71* 57* AST 40* 52* 48* ALKPHOS 66 65 66 Recent Labs Component Name 01/30/24 1057 01/28/24 0944 01/26/24 1239 MAGNESIUM 2.0 2.0 1.8 Recent Labs Component Name 01/30/24 1057 01/28/24 0944 01/26/24 1239 PHOS 2.9 2.9 2.4* Pathology Results RVP (12/19/23): negative Radiology Results [...] substantially decreased from 09/28/2023. Findings could be service representative of small airways disease. Otherwise, [...] and molecular remission after 7+3 -Transferred from [facility] after a BMBX showed 78% blasts on [...] consolidation. No more IT treatment planned. - 01/30/24 labs reviewed. Hgb/plt stable. Electrolytes within normal limits. General transfusion parameters (leukoreduced and irradiated blood [...] like to follow up with her local TRANSFERRER and states she will schedule this appointment. However, pt's local TRANSFERRER was unable to treat this, so will send repeat referral to [facility] TRANSFERRER. PLAN: - S/p C4 HiDAC consolidation - Pt will follow up with [facility] TRANSFERRER for ovarian mass, repeat referral sent. - Once counts recover, plan to switch central line to PORT as pt is a very difficult stick and pt would prefer PORT. R/b discussed. - Labs reviewed; Hgb/plt stable. DISPOSITION: RTC 02/02/24 for basics, T&S, ? Transfusions, and on 02/06/24 for basics, T&S, ?Transfusions, ABEL visit, and depo shot The total time spent today in the visit with the patient, performing chart preparation, review of data, and documentation, not related to any procedure or preventative visit services was 35 minutes. Britni Winston PA-C Blood & Marrow Transplant [facility] documented in this encounter Plan of Treatment Upcoming Encounters Date Type Department Care Team (Late st Contact Info) Description 10/27/2024 10:30 AM MACHINING MANAGER Appointment [facility] [address] [place] [address] Hussain Carias MD [address] [place] [phone] Britni Winston PA-C [address] [place], [place] [phone] 11/17/2024 9:00 AM MACHINING MANAGER Office Visit [facility] - Ophthalmology [address] [place] [address], [place] [phone] Song Hobson MD [address] [place] [address] DE[place] [phone] Scheduled Referrals Name Type Priority Associated Diagnoses Order Schedule Ref to OBGYN - [place] 400 Outpatient Referral Routine Ovarian mass 1 Occurrences starting 01/30/2024 until 01/29/2025 documented as of this encounter Procedures Procedure Name Priority Date/Time Associated Diagnosis Comments TYPE + SCREEN PANEL STAT 01/30/2024 1 0:57 AM CDT Acute myeloid leukemia in remission (HCC) DIFFERENTIAL MANUAL STAT 01/30/2024 1 0:57 AM CDT Acute myeloid leukemia in remission (HCC) CBC W AUTO DIFFERENTIAL STAT 01/30/2024 10:57 AM CDT Acute myeloid leukemia in remission (HCC) COMPREHENSIVE METABOLIC PANEL STAT 01/30/2024 10:57 AM CDT Acute myeloid leukemia in remission (HCC) PHOSPHORUS BLOOD STAT 01/30/2024 10:5 7 AM CDT Acute myeloid leukemia in remission (HCC) MAGNESIUM BLOOD STAT 01/30/2024 10:57 AM CDT Acute myeloid leukemia in remission (HCC) documented in this encounter Results * (ABNORMAL) DIFFERENTIAL MANUAL (01/30/2024 10:57 AM CDT) Neutrophil % 33(L) 41 - 74 % 01/30/2024 12:03 PM CDT [facility] Lymphocyte % 47 17 - 47 % 01/30/2024 12:03 PM CDT [facility] Monocyte % 20(H) 3 - 11 % 01/30/2024 12:03 PM T [facility] Comment:Rare monocyte appear s to be immature. Neutrophil Absolute 1.06(L) 1.60 - 7.50 x10E9/L 01/30/2024 12:03 PM T [facility] Lymphocyte Absolute 1.50 1.00 - 4.40 x10E9/L 01/30/2024 12:03 PM T [facility] Monocyte Absolute 0.64 0.15 - 1.00 x10E9/L 01/30/2024 12:03 PM T [facility] RBC Morphology REVIEWED 01/30/2024 12:03 PM [facility] Microcytosis MODERATE(A) (none) 01/30/2024 12:03 PM [facility] Blood BLOOD SPECIMEN / Unknown Venipuncture / Unknown 01/30/2024 10:57 AM CDT 01/30/2024 11:01 AM CDT Britni Winston PA-C LAB - HEMATOLOGY ORD ERABLES [facility] [address] [place] [phone], [facility] [phone] * TYPE + SCREEN PANEL (01/30/2024 10:57 AM CDT) Antibody Screen NEG 11:48 AM CDT [facility] ABO Rh O POS 01/30/2024 11:48 AM CDT [facility] Blood Bank BLOOD SPECIMEN / Unknown Venipuncture / Unknown 01/30/2024 10:57 AM CDT 01/30/2024 11:02 AM CDT Britni Winston PA-C LAB - BLOOD BANK ORD ERABLES [facility] [address] [place] [address], [facility] [phone] * (ABNORMAL) CBC WITH DIFFERENTIAL (01/30/2024 10:57 AM CDT) WBC 3.2(L) 4.0 - 10.7 x10E9/L 01/30/2024 12:03 PM [facility] RBC Count 2.61(L) 3.90 - 5.20 x10E12/L 01/30/2024 12:03 PM [facility] Hemoglobin 7.6(L) 11.9 - 15.8 g/dL 01/30/2024 12:03 PM [facility] Hematocrit 21.3(L) 34.8 - 46.1 % 01/30/2024 12:03 PM [facility] MCV 81.6 80.0 - 98.0 fL 01/30/2024 12:03 PM [facility] MCH 29.1 26.7 - 33.6 pg 01/30/2024 12:03 PM [facility] MCHC 35.7 31.7 - 36.3 g/dL 01/30/2024 12:03 PM [facility] RDW-CV 14.6 11.3 - 14.8 % 01/30/2024 12:03 PM [facility] Platelet Count 53(L) 150 - 420 x10E9/L 01/30/2024 12:03 PM [facility] MPV 11.0 7.8 - 11.4 fL 01/30/2024 12:03 PM [facility] Preliminary Absolute Neutrophil 0.79(L) 1.60 - 7.50 x10E9/L 01/30/2024 12:03 PM CDT [facility] Comment:Preliminary ANC pend ing manual confirmation NRBC 1.6(H) <=0.0 /100 WBC 01/30/2024 12:03 PM CDT [facility] Blood BLOOD SPECIMEN / Unknown Venipuncture / Unknown 01/30/2024 10:57 AM CDT 01/30/2024 11:01 AM CDT Britni Winston PA-C LAB - HEMATOLOGY ORD ERABLES Performing Organization Address City/[facility]/ZIP Co de Phone Number [address] [address], [facility] [phone] * MAGNESIUM BLOOD (01/30/2024 10:57 AM CDT) Magnesium 2.0 1.6 - 2.6 mg/dL 01/30/2024 11:33 AM T [facility] Blood BLOOD SPECIMEN / Unknown Venipuncture / Unknown 01/30/2024 10:57 AM CDT 01/30/2024 11:01 AM CDT Britni Winston PA-C LAB - CHEMISTRY ORDE RABLES Performing Organization Address City/[facility]/ZIP Co de Phone Number [address] [address], [facility] [phone] * (ABNORMAL) COMPREHENSIVE METABOLIC PANEL (01/30/2024 10:57 AM CDT) BUN 9 7 - 26 mg/dL 01/30/2024 11:34 AM [facility] Creatinine 0.59 0.56 - 0.96 mg/dL 01/30/2024 11:34 AM T [facility] Sodium 139 136 - 145 mmol/L 01/30/2024 11:34 AM T [facility] Potassium 3.6 3.5 - 4.5 mmol/L 01/30/2024 11:34 AM [facility] Chloride 110(H) 98 - 107 mmol/L 01/30/2024 11:34 AM [facility] CO2 21(L) 22 - 29 mmol/L 01/30/2024 11:34 AM [facility] Glucose 152(H) 70 - 115 mg/dL 01/30/2024 11:34 AM [facility] Calcium 9.4 8.4 - 10.2 mg/dL 01/30/2024 11:34 AM [facility] Protein Total 6.4 6.0 - 8.3 g/dL 01/30/2024 11:34 AM [facility] Albumin 3.5 3.4 - 5.0 g/dL 01/30/2024 11:34 AM [facility] Bilirubin Total 0.4 0.2 - 1.2 mg/dL 01/30/2024 11:34 AM [facility] Alkaline Phosphatase 66 40 - 150 U/L 01/30/2024 11:34 AM [facility] ALT 63(H) 5 - 55 U/L 01/30/2024 11:34 AM [facility] AST 40(H) 5 - 34 U/L 01/30/2024 11:34 AM [facility] Anion Gap 8 6 - 16 01/30/2024 11:34 AM [facility] BUN/Creatinine Ratio 15 7 - 23 01/30/2024 11:34 AM [facility] Osmolality Calculated 290 275 - 295 mOsm/kg 01/30/2024 11:34 AM [facility] Albumin/Globulin Ratio 1.2 1.1 - 2.3 01/30/2024 11:34 AM [facility] eGFR by CKD-EPI >90 >=90 mL/min/1.7 3 m2 01/30/2024 11:34 AM [facility] Blood BLOOD SPECIMEN / Unknown Venipuncture / Unknown 01/30/2024 10:57 AM CDT 01/30/2024 11:01 AM T Britni Winston PA-C LAB - CHEMISTRY JON NAIDU [facility] [address] [place] [phone], [facility] [phone] * PHOSPHORUS BLOOD (01/30/2024 10:57 AM CDT) Phosphorus 2.9 2.9 - 5.1 mg/dL 01/30/2024 11:33 AM CDT [facility] Blood BLOOD SPECIMEN / Unknown Venipuncture / Unknown 01/30/2024 10:57 AM CDT 01/30/2024 11:01 AM CDT Britni Winston PA-C LAB - CHEMISTRY JON NAIDU Performing Organization Address City/[facility] Co de Phone Number [facility] [address] [phone], [facility] [phone] documented in this encounter Visit Diagnoses Diagnosis Ovarian mass- Primary Unspecified noninflammatory disorder of ovary, fallopian tube, and broad ligament 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 documented in this encounter Care Teams Psychologist Private Practice Relationship Specialty Start Date End Date Nilam Mayers MD [address] [place] [phone] PCP - General Family Medicine 09/04/23 04/18/24 documented as of this encounter
--- OUTSIDE RECORDS SUMMARY | 2024-08-31 21:26 | XMS_ITS | Encounter Summary ---
Author Organization [facility] Address [address] [place], [place] [address] [address] Care Team Providers Care Retail Zone Specialist Name Role Phone Nilam Mayers MD Primary Care Provider +1- [phone] Reason for Visit * Reason Comments Retina Evaluation Encounter Details Date Type Department Care Team (Late st Contact Info) Description 03/22/2024 8:30 AM CDT Office Visit [facility] - Ophthalmology [address] [place] [address] Hussain Carias MD [address] [place] [address] Darvin Jeronimo MD [address] [place] [address] Vitreous hemorrhage of both eyes (HCC) (Primary Dx); Acute myeloid leukemia in remission (HCC); Papilledema associated with increased intracranial pressure Social History Tobacco Use Types Packs/Day Years [...] Recorded Patient Health Questionnaire-2 Score 0 03/03/2024 [facility] of Occupat ional Health - Occupational Stress [...] as of this encounter Progress Notes * Darvin Jeronimo MD - 03/22/2024 8:17 AM CDT [facility] Clinic Note 03/22/2024 at 9:28 AM Patient: Sarah Mckeon Age: [age] year old Date of : 1985 HPI: Per chart review, this is a 38 yo F w/ hx of AML (in remission), followed by Dr. Hobson for papilledema, here for retina eval. Was previously on Diamox 500 mg PO BID, eventually was discontinued because she was undergoing chemo from 09/2023-12/2023. Initially was diagnosed with the AML in 08/2023. Had LP in past w/ concern for leukemic infiltrates in right orbit. She is happy with her vision currently. States she feels a little pressure behind OU (OD>OS). Pt denies pain, FOL, or floaters. Denies TVOs, N/V, diplopia, tinnitus, headaches. Has been restarted on Diamox PO 250mg BID for 2 weeks now. Only uses PFATs prn OU. Objective: Base Eye Exam Visual Acuity (Snellen - Linear) Right Left Dist sc 20/20 20/20 Tonometry (Tonopen, 8:21 AM) Right Left Pressure 12 5 Tonometry #2 (Tonopen, 8:44 AM) Right Left Pressure 12 15 Pupils Pupils Dark Light Shape React APD Right PERRL 7 5 Round Brisk None Left PERRL 7 5 Round Brisk None Visual Hurt (Counting fingers) Left Right Full Full Extraocular Movement Right Left Full Full Neuro/Psych Oriented x3: Yes Mood/Affect: Normal Dilation Both eyes: 1.0% Mydriacyl, 2.5% Dar Synephrine @ 8:22 AM Slit Lamp and Fundus Exam External Exam Right Left External Normal Normal Slit Lamp Exam Right Left Lids/Lashes Normal Normal Conjunctiva/Sclera White and quiet White and quiet Cornea Clear Clear Anterior Chamber Deep and quiet Deep and quiet Iris Round and reactive Round and reactive Lens Clear Clear Anterior Vitreous One spot of dehemoglobinized VH One spot of dehemoglobinized VH Fundus Exam Right Left Disc Gr 2-3 papilledema w/ small peripapillary hemorrhage Gr 2-3 papilledema C/D Ratio 0.05 0.05 Macula Normal Single small CWS temporally Vessels Mildly dilated and tortuous Mildly dilated and tortuous Periphery Normal Normal Relevant Diagnostic Tests or Imaging: OCT Macula: Assessment and Plan: #Vitreous hemorrhage #Hx of Thrombocytopenia #Hx of AML (in remission) -Patient with a History of AML c/b pancytopenia and febrile neutropenia -Initial exam by our Consult/Call team 09/2023 with papilledema. [Re-retinal and intraretinal hemes,French's spots, multiple CWS OU -Patient has since completed a course of Chemotherapy and is now in remission -Exam 03/22/24 with resolved intraretinal heme, mostly resolved VH (only 1 spot of old dehemoglobinized VH remaining in each eye). VA 20/20 PU, No signes of leukemic retinal infiltrates. #Papilledema -Follows with Dr. Hobson, also referred by Dr. 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 Hobson -Patient today denies headaches, tinnitus, diplopia, TVOs. VA 20/20 OU Recommendations: -Patient awaiting call from [facility] Neuro-Ophthalmology eval for further assessment -Follow up with Dr. Hobson as scheduled. Kandace VIEYRA Patient discussed with and seen by Dr. Jeronimo. Isaiah Burleson MD Ophthalmology Resident (PGY-2) 03/22/2024 9:28 AM I reviewed and confirmed the techs ROS, past histories, and readings. I have personally seen and examined the patient, and reviewed in detail the findings of the resident/fellow. I have personally performed the extended ophthalmoscopy.The final examination findings, image interpretations, and plan a s documented in the record represent my personal judgment and conclusions. with the following additions or corrections: Follow up: Dr. Hobson as scheduled, Kandace Jeronimo MD Attending, Retina Service Date of Service: 03/22/2024 documented in this encounter Plan of Treatment Upcoming Encounters Date Type Department Care Team (Late st Contact Info) Description 10/27/2024 10:30 AM AVIONIC TECHNICIAN Appointment [facility] [address] [place] [address] Hussain Carias MD [address] [place] [phone] Britni Winston, PABaronC [address] [place] [address] 11/17/2024 9:00 AM AVIONIC TECHNICIAN Office Visit [facility] - Ophthalmology [address] [place] [phone] Song Hobson MD [facility]5 [facility] [place] [phone] documented as of this encounter Results * RETINAL ANALYSIS OCT (03/22/2024 7:58 AM CDT) Anatomical Region Laterality Modality Head External-Camera Photography Narrative 03/22/2024 9:24 AM CDT OD: Normal foveal contour, vitreous cells (resolving VH) OS: Normal foveal contour, vitreous cells (resolving VH) Darvin Jeronimo MD OPHTHALMOLOGY [facility] ED ORD W PACS documented in this encounter Visit Diagnoses Diagnosis Vitreous hemorrhage of both eyes (HCC)- Primary Vitreous hemorrhage 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
--- OUTSIDE RECORDS SUMMARY | 2024-08-31 21:26 | XMS_ITS | Encounter Summary ---
Author Organization [facility] Address [address] [place] [address] [place] [address] Care Team Providers Care Signs And Displays Sales Representative Name Role Phone Nilam Mayers MD Primary Care Provider +1- [phone] Encounter Details Date Type Department Care Team (Latest Contact Info) Description 02/10/2024 Travel Social History Tobacco Use Types Packs/Day [...] and heating? Not hard at all 01/19/2024 [facility] [place] of Occupat ional Health - Occupational Stress [...] place to sleep or slept in a retirement (including now)? No 01/19/2024 Sex and Gender [...] st Contact Info) Description 10/27/2024 10:30 AM ORDNANCE ENGINEERING TECHNICIAN Appointment [facility] [address] [place] [address] Hussain Carias MD [address] [place] [address] Britni Winston, PABaronC [address] [place] [address] 11/17/2024 9:00 AM ORDNANCE ENGINEERING TECHNICIAN Office Visit [facility] - Ophthalmology [address] [place] [phone] Song Hobson MD [address] [place] [address] [place] [phone] documented as of this encounter Visit Diagnoses Not on filedocumented in this encounter Care Teams Signs And Displays Sales Representative Relationship Specialty Start Date End Date Nilam Mayers MD [address] [place] [phone] PCP - General Family Medicine 09/04/23 04/18/24 documented as of this encounter
--- OUTSIDE RECORDS SUMMARY | 2024-08-31 21:26 | XMS_ITS | Encounter Summary ---
Author Organization [facility] Address [address] [place] [address] [place] [address] Care Team Providers Care Core Cutter Name Role Phone Nilam Mayers MD Primary Care Provider +1- [phone] Encounter Details Date Type Department Care Team (Latest Contact Info) Description 03/03/2024 Travel Social History Tobacco Use Types Packs/Day [...] Recorded Patient Health Questionnaire-2 Score 0 03/03/2024 [facility] [place] of Occupat ional Health - Occupational Stress [...] st Contact Info) Description 10/27/2024 10:30 AM MANGLE OPERATOR GARMENTS Appointment [facility] [address] [place] [address] Hussain Carias MD [address] [place] [address] Britni Winston, PABaronC [address] [place] [address] 11/17/2024 9:00 AM MANGLE OPERATOR GARMENTS Office Visit [facility] - [facility]mology [facility] [place] [phone] Song Hobson MD [address] [place] [address] DE[place] [phone] documented as of this encounter Visit Diagnoses Not on filedocumented in this encounter Care Teams Core Cutter Relationship Specialty Start Date End Date Nilam Mayers MD [address] [place] [phone] PCP - General Family Medicine 09/04/23 04/18/24 documented as of this encounter
--- OUTSIDE RECORDS SUMMARY | 2024-08-31 21:26 | XMS_ITS | Encounter Summary ---
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) Social History [...] Patient Health Questionnaire-2 Score 0 03/03/2024 [facility] [place] of Occupat ional Health - Occupational Stress [...] st Contact Info) Description 10/27/2024 10:30 AM OCCUPATIONAL HEALTH AND SAFETY OFFICER Appointment [facility] [address] [place] [address] Hussain Carias MD [address] [place] [address] Britni Winston PA-C [address] [place] [address] 11/17/2024 9:00 AM OCCUPATIONAL HEALTH AND SAFETY OFFICER Office Visit [facility] - Ophthalmology [address] [facility], [place], [place] [address] Song Hobson MD [facility] [place] [address] documented as of this encounter Results * TYPE + SCREEN PANEL (03/22/2024 10:04 AM CDT) Antibody Screen NEG 10:51 AM CDT [facility] ABO Rh O POS 03/22/2024 10:51 AM CDT [facility] Blood Bank BLOOD SPECIMEN / Unknown Venipuncture / Unknown 03/22/2024 10:04 AM CDT 03/22/2024 10:12 AM CDT Britni Winston PA-C LAB - BLOOD BANK ORD ERABLES [facility] [address] [place] [address], [place] [phone] * PHOSPHORUS BLOOD (03/22/2024 10:04 AM CDT) Phosphorus 3.9 2.9 - 5.1 mg/dL 03/22/2024 10:45 AM CDT [facility] Blood BLOOD SPECIMEN / Unknown Venipuncture / Unknown 03/22/2024 10:04 AM CDT 03/22/2024 10:14 AM CDT Britni Winston PA-C LAB - CHEMISTRY ORDE RABQI [facility] [address] [place] [address], [place] [phone] * MAGNESIUM BLOOD (03/22/2024 10:04 AM CDT) Magnesium 2.2 1.6 - 2.6 mg/dL 03/22/2024 10:45 AM [facility] Blood BLOOD SPECIMEN / Unknown Venipuncture / Unknown 03/22/2024 10:04 AM CDT 03/22/2024 10:14 AM CDT Britni Winston PA-C LAB - CHEMISTRY JON NAIDU [facility] [address] [place] [address], [facility] [phone] * (ABNORMAL) COMPREHENSIVE METABOLIC PANEL (03/22/2024 10:04 AM CDT) BUN 9 7 - 26 mg/dL 03/22/2024 10:45 AM [facility] Creatinine 0.84 0.56 - 0.96 mg/dL 03/22/2024 10:45 AM [facility] Sodium 141 136 - 145 mmol/L 03/22/2024 10:45 AM [facility] Potassium 3.7 3.5 - 4.5 mmol/L 03/22/2024 10:45 AM [facility] Chloride 115(H) 98 - 107 mmol/L 03/22/2024 10:45 AM [facility] CO2 18(L) 22 - 29 mmol/L 03/22/2024 10:45 AM [facility] Glucose 103 70 - 115 mg/dL 03/22/2024 10:45 AM [facility] Calcium 9.8 8.4 - 10.2 mg/dL 03/22/2024 10:45 AM [facility] Protein Total 7.1 6.0 - 8.3 g/dL 03/22/2024 10:45 AM [facility] Albumin 3.8 3.4 - 5.0 g/dL 03/22/2024 10:45 AM [facility] Bilirubin Total 0.4 0.2 - 1.2 mg/dL 03/22/2024 10:45 AM [facility] Alkaline Phosphatase 87 40 - 150 U/L 03/22/2024 10:45 AM [facility] ALT 16 5 - 55 U/L 03/22/2024 10:45 AM [facility] AST 18 5 - 34 U/L 03/22/2024 10:45 AM [facility] Anion Gap 8 6 - 16 03/22/2024 10:45 AM [facility] BUN/Creatinine Ratio 11 7 - 23 03/22/2024 10:45 AM [facility] Osmolality Calculated 291 275 - 295 mOsm/kg 03/22/2024 10:45 AM [facility] Albumin/Globulin Ratio 1.2 1.1 - 2.3 03/22/2024 10:45 AM [facility] eGFR by CKD-EPI >90 >=90 mL/min/1.7 3 m2 03/22/2024 10:45 AM [facility] Blood BLOOD SPECIMEN / Unknown Venipuncture / Unknown 03/22/2024 10:04 AM T 03/22/2024 10:14 AM T Britni Winston PA-C LAB - CHEMISTRY JON NAIDU [facility] Organization Address City/State/[facility] Co de Phone Number [facility] [address] [place] [address], [facility] [phone] * (ABNORMAL) CBC W/ DIFFERENTIAL (03/22/2024 10:04 AM [facility]) WBC 5.9 4.0 - 10.7 x10E9/L 03/22/2024 11:04 AM [facility] RBC Count 3.29(L) 3.90 - 5.20 x10E12/L 03/22/2024 11:04 AM [facility] Hemoglobin 11.1(L) 11.9 - 15.8 g/dL 03/22/2024 11:04 AM [facility] Hematocrit 32.8(L) 34.8 - 46.1 % 03/22/2024 11:04 AM [facility] MCV 99.7(H) 80.0 - 98.0 fL 03/22/2024 11:04 AM [facility] MCH 33.7(H) 26.7 - 33.6 pg 03/22/2024 11:04 AM [facility] MCHC 33.8 31.7 - 36.3 g/dL 03/22/2024 11:04 AM [facility] RDW-CV 19.6(H) 11.3 - 14.8 % 03/22/2024 11:04 AM [facility] Platelet Count 44(L) 150 - 420 x10E9/L 03/22/2024 11:04 AM [facility] MPV 11.5(H) 7.8 - 11.4 fL 03/22/2024 11:04 AM [facility] Preliminary Absolute Neutrophil 4.32 1.60 - 7.50 x10E9/L 03/22/2024 11:04 AM [facility] Comment:Preliminary ANC pend ing manual confirmation Neutrophil % 73.3 41.0 - 74.0 % 03/22/2024 11:04 AM [facility] Lymphocyte % 15.8(L) 17.0 - 47.0 % 03/22/2024 11:04 AM [facility] Monocyte % 9.7 3.0 - 11.0 % 03/22/2024 11:04 AM [facility] Eosinophil % 0.7 0.0 - 7.0 % 03/22/2024 11:04 AM [facility] Basophil % 0.2 0.0 - 1.6 % 03/22/2024 11:04 AM [facility] Immature Granulocytes % 0.3 0.0 - 1.0 % 03/22/2024 11:04 AM [facility] Neutrophil Absolute 4.32 1.60 - 7.50 x10E9/L 03/22/2024 11:04 AM [facility] Lymphocyte Absolute 0.93(L) 1.00 - 4.40 x10E9/L 03/22/2024 11:04 AM [facility] Monocyte Absolute 0.57 0.15 - 1.00 x10E9/L 03/22/2024 11:04 AM CDT [facility] Eosinophil Absolute 0.04 0.00 - 0.60 x10E9/L 03/22/2024 11:04 AM CDT [facility] Basophil Absolute 0.01 0.00 - 0.13 x10E9/L 03/22/2024 11:04 AM CDT [facility] Blood BLOOD SPECIMEN / Unknown Venipuncture / Unknown 03/22/2024 10:04 AM CDT 03/22/2024 10:14 AM CDT rBitni Winston PA-C LAB - HEMATOLOGY ORD ERABLES [facility] [address] [place] [address], [facility] [phone] documented in this encounter Visit Diagnoses Diagnosis 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
--- OUTSIDE RECORDS SUMMARY | 2024-08-31 21:26 | XMS_ITS | Encounter Summary ---
Author Organization [facility] Address [address] [place], [place] [address] [address] Care Team Providers Care Engineering Technology Instructor Name Role Phone Nilam Mayers MD Primary Care Provider +1- [phone] Encounter Details Date Type Department Care Team (Latest Contact Info) Description 01/26/2024 11:29 AM CDT - 01/26/2024 11:59 PM T Hospital Encounter [facility] [address] [place] [address] Hussain Carias MD [address] [place] [address] Cori Hill APRN-CHU [address] [place] [address] Discharge Disposition: Home or Self Care Social [...] hard at all 01/19/2024 [facility] of Occupat ional Health - Occupational Stress [...] Reading Time Taken Comments Blood Pressure 135/83 01/26/2024 2:37 PM CDT Pulse 93 01/26/2024 2:37 PM CDT Temperature 36.5 ??C (97.7 ??F) 01/26/2024 2:37 PM CD T Respiratory Rate 20 01/26/2024 2:37 PM CDT Oxygen Saturation 100% 01/26/2024 2:37 PM CDT Inhaled Oxygen Concentration - - Weight 109.6 kg (241 lb 11.2 oz) 2023 12:32 PM CDT Height - - Body Mass Index 44.21 01/19/2024 4:24 PM CDT documented in this [...] 01/23/2024 03/31/2024 posaconazole (Noxafil) 100 MG tabletIndications:Ac [place] myeloid leukemia in remission (HCC) Take 3 (three) tablets by mouth daily with dinner 90 tablet 5 12/15/2023 05/20/2024 potassium chloride ER 10 MEQ tablet Take 2 (two) tablets by mouth once daily 30 tablet 3 12/15/2023 03/02/2024 prochlorperazine (Compazine) 10 MG tablet Take 1 (one) tablet by mouth every 8 hours as needed for Nausea/Vomiting 04/30/2024 senna (Senokot) 8.6 MG tablet Take 1 (one) tablet by mouth once daily as needed for Constipation 30 tablet 01/23/2024 01/28/2024 sennosides (Senokot) 8.6 MG tablet TAKE ONE TABLET BY MOUTH ONCE DAILY NEEDED FOR CONSTIPATION 30 tablet 01/23/2024 06/25/2024 valACYclovir (Valtrex) 500 MG tabletIndications:Ac [place] myeloid leukemia in remission (HCC) Take 1 (one) tablet by mouth 2 times daily 60 tablet 11 11/03/2023 08/23/2024 Shae Anaya (Hemorrhoidal Hygiene) 50 % 1 Pad by Apply externally route as needed 100 Each 1 01/14/2024 02/06/2024 documented as of this encounter Plan of Treatment Upcoming Encounters Date Type Department Care Team (Late st Contact Info) Description 10/27/2024 10:30 AM VP SOFTWARE Appointment [facility] [address] [place] [address] Hussain Carias MD [address] [place] [phone] Britni Winston, PA-C [address] [place] [address] 11/17/2024 9:00 AM VP SOFTWARE Office Visit [facility] - Ophthalmology [address] [place] [phone] Song Hobson MD [address] [place] [address] [place] [phone] documented as of this encounter Procedures Procedure Name Priority Date/Time Associated Diagnosis Comments PLATELET COUNT AUTO STAT 01/26/2024 2 :39 PM CDT Acute myeloid leukemia in remission (HCC) TRANSFUSE PLATELET PHERESIS UNIT(S) Routine 01/26/2024 2:04 PM CDT PREPARE PLATELET PHERESIS UNIT(S) Routine 01/26/2024 1:54 PM CDT URIC ACID BLOOD STAT 01/26/2024 12:39 PM CDT Acute myeloid leukemia in remission (HCC) TYPE + SCREEN PANEL STAT 01/26/2024 1 2:39 PM CDT Acute myeloid leukemia in remission (HCC) DIFFERENTIAL MANUAL STAT 01/26/2024 1 2:39 PM CDT Acute myeloid leukemia in remission (HCC) CBC W AUTO DIFFERENTIAL STAT 01/26/2024 12:39 PM CDT Acute myeloid leukemia in remission (HCC) COMPREHENSIVE METABOLIC PANEL STAT 01/26/2024 12:39 PM CDT Acute myeloid leukemia in remission (HCC) PHOSPHORUS BLOOD STAT 01/26/2024 12:3 9 PM CDT Acute myeloid leukemia in remission (HCC) MAGNESIUM BLOOD STAT 01/26/2024 12:39 PM CDT Acute myeloid leukemia in remission (HCC) LDH BLOOD STAT 01/26/2024 12:39 PM CDT Acute myeloid leukemia in remission (HCC) documented in this encounter Results * (ABNORMAL) PLATELET COUNT AUTO (01/26/2024 2:39 PM CDT) [facility] Platelet Count 40(L) 150 - 420 x10E9/L 01/26/2024 3:26 PM CDT [facility] Blood BLOOD SPECIMEN / Unknown Venipuncture / Unknown 01/26/2024 2:39 PM CDT 01/26/2024 3:14 PM CDT Cori Hill APRN-MANAGER INSTRUMENTATION LAB - HEMAT OLOGY ORDERABLES Performing Organization Address [facility]/State/[facility] Co de Phone Number [address] [address], [facility] [phone] * TRANSFUSE PLATELET PHERESIS UNIT(S) (01/26/2024 2:38 PM CDT) Cori Hill BULLDOZER/LOADER/COMPACTOR/SCRAPER-MANAGER INSTRUMENTATION NURSING - B LOOD PROD TRANSFUSION * TRANSFUSE PLATELET PHERESIS UNIT(S), 1 Units (01/26/2024 2:38 PM CDT) Cori Hill BULLDOZER/LOADER/COMPACTOR/SCRAPER-MANAGER INSTRUMENTATION NURSING - B LOOD PROD TRANSFUSION * PREPARE PLATELET PHERESIS UNIT(S), 1 Units (01/26/2024 1:54 PM CDT) Unit Description [id number] B7 IR [facility] Unit ABO AB [facility] Unit Rh POS [facility] Product Number P32 [facility] Unit Donor # [id number] [facility] Unit Status transfused [facility] Product Code [id number] [facility] Blood Type Barcode 8400 [facility] Expiration Date [id number] S BLOOD BANK LAB Blood Bank BLOOD SPECIMEN / Unknown 01/26/2024 12:51 PM CDT Cori Hill BULLDOZER/LOADER/COMPACTOR/SCRAPER-MANAGER INSTRUMENTATION LAB - BLOOD BANK ORDERABLES [facility] [address] [place] [address], [facility] [phone] * (ABNORMAL) DIFFERENTIAL MANUAL (01/26/2024 12:39 PM CDT) Neutrophil % 19(L) 41 - 74 % 01/26/2024 1:54 PM T [facility] Lymphocyte % 53(H) 17 - 47 % 01/26/2024 1:54 PM T [facility] Monocyte % 23(H) 3 - 11 % 01/26/2024 1:54 PM T [facility] Metamyelocyte % 2(H) 0% % 1:54 PM T [facility] Myelocyte % 2(H) 0% % 01/26/2024 1:54 PM T [facility] Promyelocyte % 1(H) 0% % 01/26/2024 1:54 PM T [facility] Neutrophil Absolute 0.67(L) 1.60 - 7.50 x10E9/L 01/26/2024 1:54 PM T [facility] Lymphocyte Absolute 1.86 1.00 - 4.40 x10E9/L 01/26/2024 1:54 PM T [facility] Monocyte Absolute 0.81 0.15 - 1.00 x10E9/L 01/26/2024 1:54 PM T [facility] RBC Morphology REVIEWED 01/26/2024 1:54 PM CDT [facility] Microcytosis MANY(A) (none) 01/26/2024 1:54 PM CDT [facility] Blood BLOOD SPECIMEN / Unknown Venipuncture / Unknown 01/26/2024 12:39 PM CDT 01/26/2024 12:50 PM CDT Britni Winston PA-C LAB - HEMATOLOGY ORD ERABLES [facility] [address] [place] [address], [place] [phone] * TYPE + SCREEN PANEL (01/26/2024 12:39 PM CDT) Antibody Screen NEG 1:28 PM CDT [facility] ABO Rh O POS 01/26/2024 1:28 PM CDT [facility] Blood Bank BLOOD SPECIMEN / Unknown Venipuncture / Unknown 01/26/2024 12:39 PM CDT 01/26/2024 12:51 PM CDT Britni Winston PA-C LAB - BLOOD BANK ORD GELY Performing Organization Address City/[facility]/ZIP Co de Phone Number [facility] [address] [place] [address], [place] [phone] * URIC ACID BLOOD (01/26/2024 12:39 PM CDT) Uric Acid 4.1 2.6 - 6.0 mg/dL 01/26/2024 1:17 PM CDT [facility] Blood BLOOD SPECIMEN / Unknown Venipuncture / Unknown 01/26/2024 12:39 PM CDT 01/26/2024 12:50 PM CDT Britni Winston PA-C LAB - CHEMISTRY ORDE RABQI Performing Organization Address City/[facility]/ZIP Co de Phone Number [facility] [address] [address], [place] [phone] * (ABNORMAL) LDH BLOOD (01/26/2024 12:39 PM CDT) [facility] LDH Total 290(H) 125 - 243 Units/L 01/26/2024 1:17 PM [facility] Blood BLOOD SPECIMEN / Unknown Venipuncture / Unknown 01/26/2024 12:39 PM CDT 01/26/2024 12:50 PM CDT Britni Winston PA-C LAB - CHEMISTRY JON NAIDU [facility] [address] [place] [address], [facility] [phone] * (ABNORMAL) CBC WITH DIFFERENTIAL (01/26/2024 12:39 PM CDT) [facility] WBC 3.5(L) 4.0 - 10.7 x10E9/L 01/26/2024 1:55 PM [facility] RBC Count 2.70(L) 3.90 - 5.20 x10E12/L 01/26/2024 1:55 PM [facility] Hemoglobin 7.9(L) 11.9 - 15.8 g/dL 01/26/2024 1:55 PM [facility] Hematocrit 21.9(L) 34.8 - 46.1 % 01/26/2024 1:55 PM [facility] MCV 81.1 80.0 - 98.0 fL 01/26/2024 1:55 PM [facility] MCH 29.3 26.7 - 33.6 pg 01/26/2024 1:55 PM [facility] MCHC 36.1 31.7 - 36.3 g/dL 01/26/2024 1:55 PM [facility] RDW-CV 14.5 11.3 - 14.8 % 01/26/2024 1:55 PM [facility] Platelet Count 12(LL) 150 - 420 x10E9/L 01/26/2024 1:55 PM [facility] MPV 12.0(H) 7.8 - 11.4 fL 01/26/2024 1:55 PM [facility] Preliminary Absolute Neutrophil 0.67(L) 1.60 - 7.50 x10E9/L 01/26/2024 1:55 PM T [facility] Comment:Preliminary ANC pend ing manual confirmation Blood BLOOD SPECIMEN / Unknown Venipuncture / Unknown 01/26/2024 12:39 PM CDT 01/26/2024 12:50 PM CDT Britni Winston PA-C LAB - HEMATOLOGY ORD ERABLES Performing Organization Address [facility]/ZIP Co de Phone Number [address] [address], [facility] [phone] * MAGNESIUM BLOOD (01/26/2024 12:39 PM CDT) Magnesium 1.8 1.6 - 2.6 mg/dL 01/26/2024 1:17 PM T [facility] Blood BLOOD SPECIMEN / Unknown Venipuncture / Unknown 01/26/2024 12:39 PM CDT 01/26/2024 12:50 PM CDT Britni Wisnton PA-C LAB - CHEMISTRY ORDE RABQI Performing Organization Address [facility]/ZIP Co de Phone Number [address] [address], [facility] [phone] * (ABNORMAL) COMPREHENSIVE METABOLIC PANEL (01/26/2024 12:39 PM CDT) BUN 9 7 - 26 mg/dL 01/26/2024 1:17 PM T [facility] Creatinine 0.58 0.56 - 0.96 mg/dL 01/26/2024 1:17 PM T [facility] Sodium 142 136 - 145 mmol/L 01/26/2024 1:17 PM [facility] Potassium 3.4(L) 3.5 - 4.5 mmol/L 01/26/2024 1:17 PM T [facility] Chloride 112(H) 98 - 107 mmol/L 01/26/2024 1:17 PM T [facility] CO2 21(L) 22 - 29 mmol/L 01/26/2024 1:17 PM [facility] Glucose 155(H) 70 - 115 mg/dL 01/26/2024 1:17 PM [facility] Calcium 9.5 8.4 - 10.2 mg/dL 01/26/2024 1:17 PM [facility] Protein Total 6.3 6.0 - 8.3 g/dL 01/26/2024 1:17 PM [facility] Albumin 3.3(L) 3.4 - 5.0 g/dL 01/26/2024 1:17 PM [facility] Bilirubin Total 0.3 0.2 - 1.2 mg/dL 01/26/2024 1:17 PM [facility] Alkaline Phosphatase 66 40 - 150 U/L 01/26/2024 1:17 PM [facility] ALT 57(H) 5 - 55 U/L 01/26/2024 1:17 PM [facility] AST 48(H) 5 - 34 U/L 01/26/2024 1:17 PM [facility] Anion Gap 9 6 - 16 01/26/2024 1:17 PM [facility] BUN/Creatinine Ratio 16 7 - 23 01/26/2024 1:17 PM [facility] Osmolality Calculated 296(H) 275 - 295 mOsm/kg 01/26/2024 1:17 PM [facility] Albumin/Globulin Ratio 1.1 1.1 - 2.3 01/26/2024 1:17 PM [facility] eGFR by CKD-EPI >90 >=90 mL/min/1.7 3 m2 01/26/2024 1:17 PM [facility] Blood BLOOD SPECIMEN / Unknown Venipuncture / Unknown 01/26/2024 12:39 PM T 01/26/2024 12:50 PM [facility] Britni Winston PA-C LAB - CHEMISTRY JON NAIDU [facility] Organization Address City/State/ZIP Co de Phone Number [facility] [address] [place] [address], [facility] [phone] * (ABNORMAL) PHOSPHORUS BLOOD (01/26/2024 12:39 PM CDT) Phosphorus 2.4(L) 2.9 - 5.1 mg/dL 01/26/2024 1:17 PM CDT [facility] Blood BLOOD SPECIMEN / Unknown Venipuncture / Unknown 01/26/2024 12:39 PM CDT 01/26/2024 12:50 PM CDT Britni Winston PA-C LAB - CHEMISTRY JON NAIDU [facility] [address] [place] [phone], [facility] [phone] documented in this encounter Visit Diagnoses Diagnosis 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 documented in this encounter Administered Medications Inactive Administered Medications - up to 3 most recent administrations Medication Order MAR Action Action Date Dose Rate Site potassium chloride ER (Klor-Con M) tablet 40 mEq 40 mEq, Oral, ONCE, 1 dose, On Fri01/26/24 at 1345, Do not crush or chew. $ Given 01/26/2024 2:38 PM CDT 40 mEq documented in this encounter Care Teams Engineering Technology Instructor Relationship Specialty Start Date End Date Nilam Mayers MD [address] [place] [phone] PCP - General Family Medicine 09/04/23 04/18/24 documented as of this encounter
--- OUTSIDE RECORDS SUMMARY | 2024-08-31 21:26 | XMS_ITS | Encounter Summary ---
Author Organization [facility] Address [address] [place], [place] [address] [address] Care Team Providers Care Belt Machine Operator Name Role Phone Nilam Mayers MD Primary Care Provider +1- [phone] Encounter Details Date Type Department Care Team (Latest Contact Info) Description 02/02/2024 10:18 AM CDT - 02/02/2024 11:59 PM T Hospital Encounter [facility] [address] [place] [address] Hussain Carias MD [address] [place] [address] Cori Hill APRN-CHU [address] [place] [address] Discharge Disposition: Home or Self [...] and heating? Not hard at all 01/19/2024 [facility] of Occupat ional Health - Occupational Stress [...] Sign Reading Time Taken Comments Blood Pressure 134/74 02/02/2024 11:01 AM CDT Pulse 106 02/02/2024 11:01 AM CDT Temperature 36.7 ??C (98 ??F) 02/02/2024 11: 01 AM CDT Respiratory Rate 20 02/02/2024 11:0 1 AM CDT Oxygen Saturation 100% 02/02/2024 11: 01 AM CDT Inhaled Oxygen Concentration - - Weight 108.5 kg (239 lb 1.6 oz) 024 11:01 AM CDT Height - - Body Mass Index 43.73 01/19/2024 4:24 PM CDT documented in this [...] 01/23/2024 03/31/2024 posaconazole (Noxafil) 100 MG tabletIndications:[place] myeloid leukemia in remission (HCC) Take 3 [...] 01/23/2024 06/25/2024 valACYclovir (Valtrex) 500 MG tabletIndications:[place] myeloid leukemia in remission (HCC) Take 1 (one) tablet by mouth 2 times daily 60 tablet 11 11/03/2023 08/23/2024 Witfanta De La Oel (Hemorrhoidal Hygiene) 50 % 1 Pad by Apply externally route as needed 100 Each 1 01/14/2024 02/06/2024 documented as of this encounter Plan of Treatment Upcoming Encounters Date Type Department Care Team (Late st Contact Info) Description 10/27/2024 10:30 AM CLINICAL MEDICAL TRANSCRIPTIONIST Appointment [facility] [address] [place] [address] Hussain Carias MD [address] [place] [phone] Britni Winston, PABaronC [address] [place] [address] 11/17/2024 9:00 AM CLINICAL MEDICAL TRANSCRIPTIONIST Office Visit [facility] - Ophthalmology [address] [place] [phone] Song Hobson MD [address] [facility] [place] [address] documented as of this encounter Procedures Procedure Name Priority Date/Time Associated Diagnosis Comments URIC ACID BLOOD STAT 02/02/2024 11:10 AM CDT Acute myeloid leukemia in remission (HCC) TYPE + SCREEN PANEL STAT 02/02/2024 1 1:10 AM CDT Acute myeloid leukemia in remission (HCC) DIFFERENTIAL MANUAL STAT 02/02/2024 1 1:10 AM CDT Acute myeloid leukemia in remission (HCC) CBC W AUTO DIFFERENTIAL STAT 02/02/2024 11:10 AM CDT Acute myeloid leukemia in remission (HCC) COMPREHENSIVE METABOLIC PANEL STAT 02/02/2024 11:10 AM CDT Acute myeloid leukemia in remission (HCC) PHOSPHORUS BLOOD STAT 02/02/2024 11:1 0 AM CDT Acute myeloid leukemia in remission (HCC) MAGNESIUM BLOOD STAT 02/02/2024 11:10 AM CDT Acute myeloid leukemia in remission (HCC) LDH BLOOD STAT 02/02/2024 11:10 AM CDT Acute myeloid leukemia in remission (HCC) documented in this encounter Results * (ABNORMAL) DIFFERENTIAL MANUAL (02/02/2024 11:10 AM CDT) Neutrophil % 48 41 - 74 % 02/02/2024 12:[address] [facility] Lymphocyte % 37 17 - 47 % 02/02/2024 12:25 PM CDT [facility] Monocyte % 15(H) 3 - 11 % 02/02/2024 12:25 PM CDT [facility] Neutrophil Absolute 1.87 1.60 - 7.50 x10E9/L 02/02/2024 12:25 PM T [facility] Lymphocyte Absolute 1.44 1.00 - 4.40 x10E9/L 02/02/2024 12:25 PM CDT [facility] Monocyte Absolute 0.59 0.15 - 1.00 x10E9/L 02/02/2024 12:25 PM CDT [facility] RBC Morphology REVIEWED 02/02/2024 12:25 PM CDT [facility] Microcytosis MANY(A) (none) 02/02/2024 12:25 PM [facility] Blood BLOOD SPECIMEN / Unknown Venipuncture / Unknown 02/02/2024 11:10 AM CDT 02/02/2024 11:31 AM CDT Britni Winston PA-C LAB - HEMATOLOGY ORD ERABLES [facility] [address] [place] [phone], [facility] [phone] * TYPE + SCREEN PANEL (02/02/2024 11:10 AM CDT) Antibody Screen NEG 12:[address] [facility] ABO Rh O POS 02/02/2024 12:[address] [facility] Blood Bank BLOOD SPECIMEN / Unknown Venipuncture / Unknown 02/02/2024 11:10 AM CDT 02/02/2024 11:39 AM CDT Britni Winston PA-C LAB - BLOOD BANK ORD GELY Performing Organization Address City/[facility]/ZIP Co de Phone Number [facility] [address] [place] [address], [place] [phone] * URIC ACID BLOOD (02/02/2024 11:10 AM CDT) Uric Acid 5.3 2.6 - 6.0 mg/dL 02/02/2024 11:57 AM CDT [facility] Blood BLOOD SPECIMEN / Unknown Venipuncture / Unknown 02/02/2024 11:10 AM CDT 02/02/2024 11:31 AM CDT Britni Winston PA-C LAB - CHEMISTRY JON NAIDU Performing Organization Address [facility]/ZIP Co de Phone Number [address] [address], [place] [phone] * LDH BLOOD (02/02/2024 11:10 AM CDT) Pathologist [facility] LDH Total 222 125 - 243 Units/L 02/02/2024 11:57 AM CDT [facility] Blood BLOOD SPECIMEN / Unknown Venipuncture / Unknown 02/02/2024 11:10 AM CDT 02/02/2024 11:31 AM CDT Britni Winston PA-C LAB - CHEMISTRY JON NAIDU Performing Organization Address City/[facility]/ZIP Co de Phone Number [address] [address], [place] [phone] * (ABNORMAL) CBC WITH DIFFERENTIAL (02/02/2024 11:10 AM CDT) Pathologist [facility] WBC 3.9(L) 4.0 - 10.7 x10E9/L 02/02/2024 12:[address] [facility] RBC Count 2.54(L) 3.90 - 5.20 x10E12/L 02/02/2024 12:25 PM [facility] Hemoglobin 7.4(L) 11.9 - 15.8 g/dL 02/02/2024 12:25 PM [facility] Hematocrit 21.1(L) 34.8 - 46.1 % 02/02/2024 12:25 PM [facility] MCV 83.1 80.0 - 98.0 fL 02/02/2024 12:25 PM [facility] MCH 29.1 26.7 - 33.6 pg 02/02/2024 12:25 PM [facility] MCHC 35.1 31.7 - 36.3 g/dL 02/02/2024 12:25 PM [facility] RDW-CV 14.6 11.3 - 14.8 % 02/02/2024 12:25 PM [facility] Platelet Count 37(L) 150 - 420 x10E9/L 02/02/2024 12:25 PM [facility] MPV 11.8(H) 7.8 - 11.4 fL 02/02/2024 12:25 PM [facility] Preliminary Absolute Neutrophil 1.70 1.60 - 7.50 x10E9/L 02/02/2024 12:25 PM [facility] Comment:Preliminary ANC pend ing manual confirmation NRBC 1.0(H) <=0.0 /100 WBC 02/02/2024 12:25 PM [facility] Blood BLOOD SPECIMEN / Unknown Venipuncture / Unknown 02/02/2024 11:10 AM CDT 02/02/2024 11:31 AM CDT Britni Winston PA-C LAB - HEMATOLOGY ORD ERABLES [address] [address], [facility] [phone] * MAGNESIUM BLOOD (02/02/2024 11:10 AM CDT) Magnesium 2.0 1.6 - 2.6 mg/dL 02/02/2024 11:57 AM [facility] Blood BLOOD SPECIMEN / Unknown Venipuncture / Unknown 02/02/2024 11:10 AM CDT 02/02/2024 11:31 AM T Britni Winston PA-C LAB - CHEMISTRY JON Alonzo Organization Address [facility]/ZIP Co de Phone Number [facility] [address] [place] [phone] [phone] * (ABNORMAL) COMPREHENSIVE METABOLIC PANEL (02/02/2024 11:10 AM CDT) BUN 9 7 - 26 mg/dL 02/02/2024 11:59 AM [facility] Creatinine 0.66 0.56 - 0.96 mg/dL 02/02/2024 11:59 AM [facility] Sodium 141 136 - 145 mmol/L 02/02/2024 11:59 AM [facility] Potassium 3.6 3.5 - 4.5 mmol/L 02/02/2024 11:59 AM [facility] Chloride 108(H) 98 - 107 mmol/L 02/02/2024 11:59 AM [facility] CO2 21(L) 22 - 29 mmol/L 02/02/2024 11:59 AM [facility] Glucose 148(H) 70 - 115 mg/dL 02/02/2024 11:59 AM [facility] Calcium 9.9 8.4 - 10.2 mg/dL 02/02/2024 11:59 AM [facility] Protein Total 6.7 6.0 - 8.3 g/dL 02/02/2024 11:59 AM [facility] Albumin 3.5 3.4 - 5.0 g/dL 02/02/2024 11:59 AM [facility] Bilirubin Total 0.5 0.2 - 1.2 mg/dL 02/02/2024 11:59 AM [facility] Alkaline Phosphatase 72 40 - 150 U/L 02/02/2024 11:59 AM [facility] ALT 43 5 - 55 U/L 02/02/2024 11:59 AM [facility] AST 20 5 - 34 U/L 02/02/2024 11:59 AM [facility] Anion Gap 12 6 - 16 02/02/2024 11:59 AM [facility] BUN/Creatinine Ratio 14 7 - 23 02/02/2024 11:59 AM [facility] Osmolality Calculated 293 275 - 295 mOsm/kg 02/02/2024 11:59 AM [facility] Albumin/Globulin Ratio 1.1 1.1 - 2.3 02/02/2024 11:59 AM [facility] eGFR by CKD-EPI >90 >=90 mL/min/1.7 3 m2 02/02/2024 11:59 AM [facility] Blood BLOOD SPECIMEN / Unknown Venipuncture / Unknown 02/02/2024 11:10 AM CDT 02/02/2024 11:31 AM CDT Britni Winston PA-C LAB - CHEMISTRY JON NAIDU [address] [address], [facility] [phone] * PHOSPHORUS BLOOD (02/02/2024 11:10 AM CDT) Phosphorus 3.0 2.9 - 5.1 mg/dL 02/02/2024 11:57 AM T [facility] Blood BLOOD SPECIMEN / Unknown Venipuncture / Unknown 02/02/2024 11:10 AM CDT 02/02/2024 11:31 AM CDT Britni Winston PA-C LAB - CHEMISTRY JON NAIDU [address] [address], [place] [phone] documented in this encounter Visit Diagnoses Diagnosis 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 documented in this encounter Care Teams Belt Machine Operator Relationship Specialty Start Date End Date Nilam Mayers MD [address] [place] [phone] PCP - General Family Medicine 09/04/23 04/18/24 documented as of this encounter
--- OUTSIDE RECORDS SUMMARY | 2024-08-31 21:26 | XMS_ITS | Encounter Summary ---
Author Organization [facility] Address [address] [place], [place] [address] [address] Care Team Providers Care Piping Engineer Name Role Phone Nilam Mayers MD Primary Care Provider +1- [phone] Encounter Details Date Type Department Care Team (Late st Contact Info) Description 03/02/2024 Telephone [facility] [address] [place] [address] Alyson Butcher, RN Social History [...] Recorded Patient Health Questionnaire-2 Score 0 03/03/2024 [facility] [place] of Occupat ional Health - Occupational Stress [...] Encounter - Alyson Butcher, RN - 03/02/2024 2:43 PM CDT Mora called to let this coordinator know that she saw ophthalmology and they would like her to restart the eyedrops that make my counts drop. She was worried that if she did take them that it would mess things up. Explained to her that would discuss with Dr. Carias and see if this is ok. Will update Mora once a response from Dr. Carias is received. documented in this encounter Plan of Treatment Upcoming Encounters Date Type Department Care Team (Late st Contact Info) Description 10/27/2024 10:30 AM JUNIOR HIGH MATH TEACHER Appointment [facility] [address] [place] [address] Hussain Carias MD [address] [place] [phone] Britni Winston, PA-C [facility]1 [place], [place] [id number] 11/17/2024 9:00 AM JUNIOR HIGH MATH TEACHER Office Visit [facility] - Ophthalmology [address] [place] [phone] Song Hobson MD [address] [place] [address] [place] [address] documented as of this encounter Visit Diagnoses Not on filedocumented in this encounter Care Teams Piping Engineer Relationship Specialty Start Date End Date Nilam Mayers MD [address] [place] [phone] PCP - General Family Medicine 09/04/23 04/18/24 documented as of this encounter
--- OUTSIDE RECORDS SUMMARY | 2024-08-31 21:26 | XMS_ITS | Encounter Summary ---
Author Organization [facility] Address [address] [place], [place] [address] [address] Care Team Providers Care Ed Teacher Name Role Phone Nilam Mayers MD Primary Care Provider +1- [phone] Encounter Details Date Type Department Care Team (Latest Contact Info) Description 03/22/2024 8:00 AM CDT Clinical Support [facility] - Ophthalmology [address] [place] [phone] Darvin Jeronimo MD [facility]5 [place] [address] Papilledema associated with increased intracranial [...] Recorded Patient Health Questionnaire-2 Score 0 03/03/2024 [facility] [place] of Occupat ional Health - Occupational Stress [...] Contact Info) Description 10/27/2024 10:30 AM INSPECTOR BOILER Appointment [facility] [address] [place] [address] Hussain Carias MD [address] [place] [phone] Britni Winston, PA-C [address] [place], [place] [phone] 11/17/2024 9:00 AM INSPECTOR BOILER Office Visit [facility] - Ophthalmology [address] [facility] [place] [place] [phone] Song Hobson MD [facility]5 [facility] [place] [address] documented as of this encounter Procedures Procedure Name Priority Date/Time Associated Diagnosis Comments RETINAL ANALYSIS OCT Routine 03/22/2024 7:58 AM CDT Papilledema associated with increased intracranial pressure documented in this encounter Results * RETINAL ANALYSIS OCT (03/22/2024 7:58 AM CDT) Anatomical Region Laterality Modality Head External-Camera Photography Narrative 03/22/2024 9:24 AM CDT OD: Normal foveal contour, vitreous cells (resolving VH) OS: Normal foveal contour, vitreous cells (resolving VH) Darvin Jeronimo MD [facility] ORD W PACS documented in this encounter Visit Diagnoses Diagnosis Papilledema associated with increased intracranial pressure- Primary documented in this encounter Care Teams Ed Teacher Relationship Specialty Start Date End Date Nilam Mayers MD [address] [place] [phone] PCP - General Family Medicine 09/04/23 04/18/24 documented as of this encounter
--- OUTSIDE RECORDS SUMMARY | 2024-08-31 21:26 | XMS_ITS | Encounter Summary ---
Author Organization [facility] Address [address] [place] [address] [place] [address] Care Team Providers Care Watch Guard Gate Name Role Phone Nilam Mayers MD Primary Care Provider +1- [phone] Encounter Details Date Type Department Care Team (Latest Contact Info) Description 03/02/2024 Travel Social History Tobacco Use Types Packs/Day [...] Recorded Patient Health Questionnaire-2 Score 0 03/03/2024 [facility] [place] of Occupat ional Health - Occupational Stress [...] st Contact Info) Description 10/27/2024 10:[address] Appointment [facility] CL[facility] [address] [place] [address] Hussain Carias MD [address] [place] [address] Britni Winston, PABaronC [address] [place] [address] 11/17/2024 9:[address] Office Visit [facility] - Ophthalmology [facility]5 [place] [phone] Song Hobson MD [address] [place] [address] DE[place] [phone] documented as of this encounter Visit Diagnoses Not on filedocumented in this encounter Care Teams Watch Guard Gate Relationship Specialty Start Date End Date Nilam Mayers MD [address] [place] [phone] PCP - General Family Medicine 09/04/23 04/18/24 documented as of this encounter
--- OUTSIDE RECORDS SUMMARY | 2024-08-31 21:26 | XMS_ITS | Encounter Summary ---
Author Organization [facility] Address [address] [place], [place] [address] [address] Care Team Providers Care Manager Pet Name Role Phone Nilam Mayers MD Primary Care Provider [phone]- [phone] Encounter Details Date Type Department Care Team (Latest Contact Info) Description 02/20/2024 9:37 AM CDT - 02/20/2024 11:59 PM T Hospital Encounter [facility] BMT CLINIC [address] [place] [address] Hussain Carias MD [address] [place] [address] Britni Winston, PABaronC [address] [place] [address] Discharge Disposition: Home or Self [...] and heating? Not hard at all 01/19/2024 [facility] [place] [facility] - Occupational Stress [...] Sign Reading Time Taken Comments Blood Pressure 140/82 02/20/2024 10:44 AM CDT Pulse 92 02/20/2024 10:44 AM CDT Temperature 36.6 ??C (97.8 ??F) 02/20/2024 10:44 AM C DT Respiratory Rate 20 02/20/2024 10:44 AM CDT Oxygen Saturation 100% 02/20/2024 10:44 AM CDT Inhaled Oxygen Concentration - - Weight 109.8 kg (242 lb) 02/20/2024 10:44 AM CDT Height - - Body Mass Index 44.26 01/19/2024 4:24 PM CDT documented in this [...] Progress Notes * Britni Winston PA-C - 02/20/2024 1:28 PM CDT Images from the original note were not included. HEMATOLOGY/ONCOLOGY INPATIENT PROGRESS NOTE Name: Sarah Mckeon Age: [age] year old Date of : 1985 Date of Service: 02/20/2024 Reason for Consult: AML HEMATOLOGY & ONCOLOGY [...] in August of 2023 was admitted to [facility] c/o flu like symptoms and ultimately had marrow biopsy revealing 78% blasts on marrow and flow cytometry confirmed NPM1 mutation. Was sent to [facility] for AML. Completed 7 + 3 induction, cou nt recovery BMBx on 09/1723 confirmed remission. Has completed 2 consolidation therapies. 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 All have been worked up both in the inpatient and outpatient setting, well controlled on current medication regimen. Interval History: Presents to clinic for lab check and visit. Denies eye pain, blurred vision, or double vision. Denies pain anywhere. Denies fevers, chills, nausea, vomiting, diarrhea, or constipation. Reports she has been much more active at home and has felt well. VSS Review of Systems: Review of Systems [...] unspecified 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 ([facility]) 09/06/2023 - Chemotherapy cytarabine (Cytosar) 460 mg [...] Active Treatment Days for Sarah Mckeon (until 02/21/2024) There are no remaining days before 02/21/2024. Medications SCHEDULED MEDICATIONS: Current Outpatient Medications Medication [...] Reactions Vancomycin Itching OBJECTIVE Physical Exam Vitals: 02/20/24 1044 BP: 140/82 Pulse: 92 Resp: 20 Temp: 97.8 ??F SpO2: 100% Weight: 109.8 kg (242 lb) Wt Readings from Last 3 Encounters: 02/20/24 109.8 kg (242 lb) 02/13/24 108.5 kg (239 lb 4.8 oz) 02/10/24 108.1 kg (238 lb 6.4 oz) Karnofsky/ECO/0 General appearance - well-appearing, and [...] tenderness Laboratory Results Recent Labs Component Name 02/20/24 0943 02/13/24 1057 02/10/24 0929 WBC 7.2 5.3 4.8 RBC 2.89* 2.84* 2.81* HGB 9.2* 8.7* 8.5* HCT 27.0* 25.9* 25.0* MCV 93.4 91.2 89.0 MCHC 34.1 33.6 34.0 PLTCOUNT 46* 45* 37* NEUTPCT 74.8* 62.8 57.8 LYMPHPCT 13.1* 20.1 23.5 NEUTABS 5.41 3.31 2.78 LYMPHABS 0.95* 1.06 1.13 BASOABS 0.01 0.01 0.00 Recent Labs Component Name 02/20/24 0943 02/13/24 1057 02/10/24 0929 POTASSIUM 3.6 3.6 3.6 CO2 21* 22 19* BUN 7 6* 9 CREATININE 0.65 0.66 0.66 EGFR >90 >90 >90 GLUCOSE 159* 190* 175* CALCIUM 9.5 9.4 9.9 MAGNESIUM 2.0 2.0 2.0 PHOS 3.3 2.8* 3.4 ALT 24 25 22 AST 17 17 17 ALKPHOS 81 76 78 Recent Labs Component Name 02/20/24 0943 02/13/24 1057 02/10/24 0929 MAGNESIUM 2.0 2.0 2.0 Recent Labs Component Name 02/20/24 0943 02/13/24 1057 02/10/24 0929 PHOS 3.3 2.8* 3.4 Pathology Results RVP (12/19/23): negative Radiology Results [...] substantially decreased from 09/28/2023. Findings could be international representative of small airways disease. Otherwise, no [...] and molecular remission after 7+3 -Transferred from [facility] after a BMBX showed 78% blasts on [...] consolidation. No more IT treatment planned. - 02/20/24 labs reviewed. Hgb/plt stable and up trending. Electrolytes within normal limits. - Will complete NPM1 PCR mutation labs 02/26/24. General transfusion parameters (leukoreduced and irradiated blood [...] response. 2. Floater in right eye - Per pt at 02/12 visit. 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 Plan: - f/u with Dr. Hobson 03/02. - Advised pt to call ophthalmology office [...] 01/28/24 (UPT neg 01/28/24). - F/u with ENDOCRINOLOGY PHYSICIAN on 03/03. PLAN: - Continue follow ups with surgery 02/25, ophthalmology 03/02, and ENDOCRINOLOGY PHYSICIAN 03/03. - Central line removal scheduled for 03/03. - Labs reviewed. DISPOSITION: RTC 02/26/24 for basics, NPM1 lab, and CVC dressing change, and on 04/30 for basics, NPM1 lab, and ABEL visit The total time spent today in the visit with the patient, performing chart preparation, review of data, and documentation, not related to any procedure or preventative visit services was 25 minutes. Britni Winston PA-C Blood & Marrow Transplant [facility] Associated attestation - Hussain Carias MD - 02/20/2024 3:29 PM CDT I independently interviewed and examined Sarah Mckeon with the advanced practice provider. I reviewed my findings and assessment with the advanced practice provider and the patient. I reviewed the note. Please see note for full detail. I agree with the findings and plan of care as documented by the advanced practice provider. 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 Recent Labs Component Name 02/20/24 0943 WBC 7.2 HGB 9.2* HCT 27.0* PLTCOUNT 46* Otherwise feels well. Continue to monitor CBC and NPM1 PCR in PB every 8 weeks. Hussain Carias MD, MS assistant professor of historyassistant professor of art Division of Hematology, Oncology, BMT & Cellular therapies [facility] documented in this encounter Plan of Treatment Upcoming Encounters Date Type Department Care Team (Late st Contact Info) Description 10/27/2024 10:30 AM SHORTHAND TEACHER Appointment [facility] BMT CLINIC [address] [place] [address] Hussain Carias MD [address] [place] [phone] Britni Winston PA-C [address] [place] [address] 11/17/2024 9:00 AM SHORTHAND TEACHER Office Visit [facility] - Ophthalmology [address] [facility], [place] [address] Song Hobson MD [facility] DEPT [place] [phone] documented as of this encounter Procedures Procedure Name Priority Date/Time Associated Diagnosis Comments URIC ACID BLOOD STAT 02/20/2024 9:43 AM CDT Acute myeloid leukemia in remission (HCC) SLIDE SCAN HEMATOLOGY STAT 02/20/2024 9:43 AM CDT Acute myeloid leukemia in remission (HCC) CBC W AUTO DIFFERENTIAL STAT 02/20/2024 9:43 AM CDT Acute myeloid leukemia in remission (HCC) COMPREHENSIVE METABOLIC PANEL STAT 02/20/2024 9:43 AM CDT Acute myeloid leukemia in remission (HCC) PHOSPHORUS BLOOD STAT 02/20/2024 9:43 AM CDT Acute myeloid leukemia in remission (HCC) MAGNESIUM BLOOD STAT 02/20/2024 9:43 AM CDT Acute myeloid leukemia in remission (HCC) LDH BLOOD STAT 02/20/2024 9:43 AM CDT Acute myeloid leukemia in remission (HCC) documented in this encounter Results * NPM1 MUTATION DETECTION PCR (04/30/2024 10:19 AM CDT) NPM1 Source Whole Blood 05/05/2024 11:21 AM CDT [employer] ([facility]) NPM1 Result Not Detected 05/05/2024 11:21 AM [facility] ([facility]) Comment: A NPM1 (type A, B, or [...] developed and its performance characteristics determined by [employer]. It has not been cleared or approved by the US Food and Drug Administration. This test was performed in a CLIA certified laboratory and is intended for clinical purposes. NPM1 Ratio 0.0000 05/05/2024 11:21 AM CDT [employer] ([facility]) Comment: Performed By: [facility] [address] [place] [address] Captain'S Assistant: Ebenezer Shipman MD, PhD CLIA Number: [id number] BLOOD SPECIMEN / Unknown 04/30/2024 10:19 AM CDT 04/30/2024 10:23 AM CDT Britni Winston PA-C LAB - CHEMISTRY JON NAIDU [facility] [employer] [facility]) [address] * NPM1 MUTATION DETECTION PCR (02/26/2024 1:12 PM CDT) [facility] NPM1 Source Whole Blood 03/02/2024 2:47 PM CDT [facility] [employer] ([facility]) NPM1 Result Not Detected 03/02/2024 2:47 PM CDT [employer] ([facility]) Comment: This result has been reviewed and [...] developed and its performance characteristics determined by [employer]. It has not been cleared or approved by the US Food and Drug Administration. This test was performed in a CLIA certified laboratory and is intended for clinical purposes. NPM1 Ratio 0.0000 03/02/2024 2:47 PM CDT [facility] ([facility]) Comment: Performed By: [employer] [address] [place] [address] Captain'S Assistant: Ebenezer Shipman MD, PhD CLIA Number: [id number] BLOOD SPECIMEN / Unknown 02/26/2024 1:12 PM CDT 02/26/2024 1:21 PM CDT Britni Winston PA-C LAB - CHEMISTRY JON NAIDU [facility] ([facility]) [address] [place] [id number] * (ABNORMAL) SLIDE SCAN HEMATOLOGY (02/20/2024 9:43 AM CDT) RBC Morphology REVIEWED 02/20/2024 11:11 AM CDT [facility] Microcytosis MANY(A) (none) 02/20/2024 11:11 AM CDT [facility] Polychromatic Cells MODERATE(A) (none) 02/20/2024 11:11 AM CDT [facility] Blood BLOOD SPECIMEN / Unknown Venipuncture / Unknown 02/20/2024 9:43 AM CDT 02/20/2024 9:49 AM CDT Britni Winston PA-C LAB - HEMATOLOGY ORD GELY [address] [address], [facility] [phone] * URIC ACID BLOOD (02/20/2024 9:43 AM CDT) Uric Acid 4.3 2.6 - 6.0 mg/dL 02/20/2024 10:21 AM CDT [facility] Blood BLOOD SPECIMEN / Unknown Venipuncture / Unknown 02/20/2024 9:43 AM CDT 02/20/2024 9:49 AM CDT Britni Winston PA-C LAB - CHEMISTRY ORDAzul NAIDU [address] [address], [facility] [phone] * LDH BLOOD (02/20/2024 9:43 AM CDT) [facility] LDH Total 192 125 - 243 Units/L 02/20/2024 10:21 AM [facility] Blood BLOOD SPECIMEN / Unknown Venipuncture / Unknown 02/20/2024 9:43 AM CDT 02/20/2024 9:49 AM CDT Britni Winston PA-C LAB - CHEMISTRY JON NAIDU Performing Organization Address [facility]/ZIP Co de Phone Number [address] [address], [facility] [phone] * (ABNORMAL) CBC WITH DIFFERENTIAL (02/20/2024 9:43 AM CDT) [facility] WBC 7.2 4.0 - 10.7 x10E9/L 02/20/2024 11:11 AM [facility] RBC Count 2.89(L) 3.90 - 5.20 x10E12/L 02/20/2024 11:11 AM [facility] Hemoglobin 9.2(L) 11.9 - 15.8 g/dL 02/20/2024 11:11 AM [facility] Hematocrit 27.0(L) 34.8 - 46.1 % 02/20/2024 11:11 AM [facility] MCV 93.4 80.0 - 98.0 fL 02/20/2024 11:11 AM [facility] MCH 31.8 26.7 - 33.6 pg 02/20/2024 11:11 AM [facility] MCHC 34.1 31.7 - 36.3 g/dL 02/20/2024 11:11 AM [facility] RDW-CV 24.6(H) 11.3 - 14.8 % 02/20/2024 11:11 AM [facility] Platelet Count 46(L) 150 - 420 x10E9/L 02/20/2024 11:11 AM [facility] MPV 11.1 7.8 - 11.4 fL 02/20/2024 11:11 AM [facility] Preliminary Absolute Neutrophil 5.41 1.60 - 7.50 x10E9/L 02/20/2024 11:11 AM [facility] Comment:Preliminary ANC pend ing manual confirmation Neutrophil % 74.8(H) 41.0 - 74.0 % 02/20/2024 11:11 AM [facility] Lymphocyte % 13.1(L) 17.0 - 47.0 % 02/20/2024 11:11 AM [facility] Monocyte % 10.8 3.0 - 11.0 % 02/20/2024 11:11 AM [facility] Eosinophil % 0.6 0.0 - 7.0 % 02/20/2024 11:11 AM [facility] Basophil % 0.1 0.0 - 1.6 % 02/20/2024 11:11 AM [facility] Immature Granulocytes % 0.6 0.0 - 1.0 % 02/20/2024 11:11 AM [facility] Neutrophil Absolute 5.41 1.60 - 7.50 x10E9/L 02/20/2024 11:11 AM [facility] Lymphocyte Absolute 0.95(L) 1.00 - 4.40 x10E9/L 02/20/2024 11:11 AM [facility] Monocyte Absolute 0.78 0.15 - 1.00 x10E9/L 02/20/2024 11:11 AM [facility] Eosinophil Absolute 0.04 0.00 - 0.60 x10E9/L 02/20/2024 11:11 AM [facility] Basophil Absolute 0.01 0.00 - 0.13 x10E9/L 02/20/2024 11:11 AM [facility] Blood BLOOD SPECIMEN / Unknown Venipuncture / Unknown 02/20/2024 9:43 AM CDT 02/20/2024 9:49 AM CDT Britni Winston PA-C LAB - HEMATOLOGY ORD ERABLES Performing Organization Address City/[facility]/ZIP Co de Phone Number [address] [address], [facility] [phone] * MAGNESIUM BLOOD (02/20/2024 9:43 AM CDT) Magnesium 2.0 1.6 - 2.6 mg/dL 02/20/2024 10:21 AM [facility] Blood BLOOD SPECIMEN / Unknown Venipuncture / Unknown 02/20/2024 9:43 AM CDT 02/20/2024 9:49 AM CDT Britni Winston PA-C LAB - CHEMISTRY JON NAIDU Performing Organization Address [facility]/ZIP Co de Phone Number [address] [address], [facility] [phone] * (ABNORMAL) COMPREHENSIVE METABOLIC PANEL (02/20/2024 9:43 AM CDT) BUN 7 7 - 26 mg/dL 02/20/2024 10:21 AM [facility] Creatinine 0.65 0.56 - 0.96 mg/dL 02/20/2024 10:21 AM [facility] Sodium 140 136 - 145 mmol/L 02/20/2024 10:21 AM [facility] Potassium 3.6 3.5 - 4.5 mmol/L 02/20/2024 10:21 AM [facility] Chloride 111(H) 98 - 107 mmol/L 02/20/2024 10:21 AM [facility] CO2 21(L) 22 - 29 mmol/L 02/20/2024 10:21 AM [facility] Glucose 159(H) 70 - 115 mg/dL 02/20/2024 10:21 AM [facility] Calcium 9.5 8.4 - 10.2 mg/dL 02/20/2024 10:21 AM [facility] Protein Total 6.7 6.0 - 8.3 g/dL 02/20/2024 10:21 AM [facility] Albumin 3.5 3.4 - 5.0 g/dL 02/20/2024 10:21 AM [facility] Bilirubin Total 0.4 0.2 - 1.2 mg/dL 02/20/2024 10:21 AM [facility] Alkaline Phosphatase 81 40 - 150 U/L 02/20/2024 10:21 AM [facility] ALT 24 5 - 55 U/L 02/20/2024 10:21 AM [facility] AST 17 5 - 34 U/L 02/20/2024 10:21 AM [facility] Anion Gap 8 6 - 16 02/20/2024 10:21 AM [facility] BUN/Creatinine Ratio 11 7 - 23 02/20/2024 10:21 AM [facility] Osmolality Calculated 291 275 - 295 mOsm/kg 02/20/2024 10:21 AM [facility] Albumin/Globulin Ratio 1.1 1.1 - 2.3 02/20/2024 10:21 AM [facility] eGFR by CKD-EPI >90 >=90 mL/min/1.7 3 m2 02/20/2024 10:21 AM [facility] Blood BLOOD SPECIMEN / Unknown Venipuncture / Unknown 02/20/2024 9:43 AM CDT 02/20/2024 9:49 AM T Britni Winston PA-C LAB - CHEMISTRY JON NAIDU [facility] Organization Address City/State/ZIP Co de Phone Number [facility] [address] [place] [address], [facility] [phone] * PHOSPHORUS BLOOD (02/20/2024 9:43 AM CDT) Phosphorus 3.3 2.9 - 5.1 mg/dL 02/20/2024 10:21 AM [facility] Blood BLOOD SPECIMEN / Unknown Venipuncture / Unknown 02/20/2024 9:43 AM CDT 02/20/2024 9:49 AM CDT Britni Winston PA-C LAB - CHEMISTRY JON NAIDU Performing Organization Address City/State/[facility] Co de Phone Number [address] [address], [facility] [phone] documented in this encounter Visit Diagnoses Diagnosis 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 documented in this encounter Care Teams Manager Pet Relationship Specialty Start Date End Date Nilam Mayers MD [address] [place] [phone] PCP - General Family Medicine 09/04/23 04/18/24 documented as of this encounter
--- OUTSIDE RECORDS SUMMARY | 2024-08-31 21:27 | XMS_ITS | Encounter Summary ---
Author Organization [facility] Address [address] [place], [place] [address] [address] Care Team Providers Care Technical Healthcare Consultant Name Role Phone Nilam Mayers MD Primary Care Provider [phone]- [phone] Reason for Visit * Radiology Services (Routine) - Closed Specialty Diagnoses / Procedures Referred By Contac t Referred To Contact Hematology-Oncology Diagnoses Acute myeloid leukemia in remission (HCC) Procedures VAS BILATERAL VENOUS DUPLEX UE Britni Winston, NOELLE [address] [place] [address] Referral ID Status Reason Start Date Expiration Date Visits Re quested Visits Authorized [id number] Closed 01/16/2024 01/15/2025 1 1 Encounter Details Date Type Department Care Team (Latest Contact Info) Description 01/16/2024 3:05 PM CDT - 01/16/2024 11:59 PM CDT Hospital Encounter [facility] VASCULAR [address] [place] [phone] Britni Winston, PAChristianne [address] [place], [place] [id number] Discharge Disposition: Home or Self Care Social History Tobacco Use Types Packs/Day Years Used Date Smoking Tobacco: Former Cigarettes 1 6 2 005 - 2010 Smokeless Tobacco: Never Alcohol Use Standard Drinks/Week Comments Yes 0 (1 standard drink = 0.6 oz pur e alcohol) occasional AUDIT-C Answer Date Recorded Q1: How often do you have a drink containing alcohol? Never 12/30/2023 Q2: How many drinks containi ng alcohol do you have on a typical day when you are drinking? Patient does not drink Q3: How often do you have si x or more drinks on one occasion? Never 12/30/2023 Overall Financial Resource Strain (CARDIA) Answe r Date Recorded How hard is it for you to pa y for the very basics like food, housing, medical care, and heating? Not hard at all 12/30/2023 [facility] - Occupational Stress Questionnaire Answer Date Recorded Do you feel stress - tense, restless, nervous, or anxious, or unable to sleep at night because your mind is troubled all the time - these days? Not at all 12/30/2023 Hunger Vital Sign Answer Date Recorded Within the past 12 months, y ou worried that your food would run out before you got the money to buy more. Never true 12/30/19 24 Within the past 12 months, t he food you bought just didn't last and you didn't have money to get more. Never true 12/30/2023 PRAPARE - Transportation Answer Date Re corded In the past 12 months, has l ack of transportation kept you from medical appointments or from getting medications? No 12/14 In the past 12 months, has l ack of transportation kept you from meetings, work, or from getting things needed for daily living? No 12/30/2023 Housing Stability Vital Sign Answer Richi e Recorded In the last 12 months, was t here a time when you were not able to pay the mortgage or rent on time? No 12/30/2023 In the last 12 months, how many places have you lived? 1 12/30/2023 In the last 12 months, was t here a time when you did not have a steady place to sleep or slept in a intermediate (including now)? Yes 12/30/2023 Sex and Gender Information Value Date Recorded Sex Assigned at Not on file Gender Identity Female 02/13/2024 1:12 PM CDT Sexual Orientation Not on file documented as of this encounter Functional Status Functional Status Response Date of Assess ment Is person deaf or have serious hearing difficult y? No 12/30/2023 Is person blind or have serious difficulty seein g? No 12/30/2023 Does person have serious dif ficulty walking/climbing stairs? No 12/30/2023 Does person have difficulty dressing/bathing? No 12/30/2023 Does person have difficulty doing errands alone? No 12/30/2023 Cognitive Status Response Date of Assessm ent Does person have difficulty concentrating/remembering/making decisions? No 12/30/2023 documented as of this encounter Medications at Time of Discharge Medication Sig Dispensed Refills Start Date End Date Carboxymethylcellulo se Sodium (ARTIFICIAL TEARS OP) famotidine (Pepcid) 20 MG tabletIndications:To nsillitis Take 1 (one) tablet by mouth 2 times daily 60 tablet 1 10/17/2023 acetaZOLAMIDE (Diamox) 250 MG tablet TAKE 1 (ONE) TABLET BY MOUTH 2 TIMES DAILY REASONS: PSEUDOTUMOR CEREBRI 01/09/2024 01/23/2024 levoFLOXacin (Levaquin) 500 MG tablet Take 1 (one) tablet by mouth once daily 30 tablet 1 12/15/2023 01/23/2024 medroxyPROGESTERone (Depo-Provera) 150 MG/ML vial Inject 1 mL into muscle every 84 days 10/14/2023 04/30/2024 menthol-zinc oxide (Calmoseptine) 0.44-20.6 % ointment Apply to affected area 3 times daily as needed for Other (Apply to perirectal area TID as needed for rectal pain) 113 g 01/16/2024 02/06/2024 metroNIDAZOLE (Flagyl) 500 MG tablet Take 1 (one) tablet by mouth every 8 hours 15 tablet 01/16/2024 01/23/2024 ondansetron (Zofran) 8 MG tabletIndications:Ca ncer Chemotherapy-Induced [...] every 6 hours as needed for Pain 10 tablet 01/16/2024 01/23/2024 posaconazole (Noxafil) 100 MG tabletIndications:Ac kiana myeloid leukemia in remission (HCC) Take 3 (three) tablets by mouth daily with dinner 90 tablet 5 12/15/2023 05/20/2024 potassium chloride ER 10 MEQ tablet Take 2 (two) tablets by mouth once daily 30 tablet 3 12/15/2023 03/02/2024 prochlorperazine (Compazine) 10 MG tablet Take 1 (one) tablet by mouth every 8 hours as needed for Nausea/Vomiting 04/30/2024 valACYclovir (Valtrex) 500 MG tabletIndications:Ac kiana myeloid leukemia in remission (HCC) Take 1 (one) tablet by mouth 2 times daily 60 tablet 11 11/03/2023 08/23/2024 Shae Anaya (Hemorrhoidal Hygiene) 50 % 1 Pad by Apply externally route as needed 100 Each 1 01/14/2024 02/06/2024 documented as of this encounter Plan of Treatment Upcoming Encounters Date Type Department Care Team (Late st Contact Info) Description 10/27/2024 10:30 AM CARPENTER APPRENTICE Appointment [facility] BMT CLINIC [address] [place] [address] Hussain Carias MD [address] [place] [phone] Britni Winston PA-C [address] [place] [address] 11/17/2024 9:00 AM CARPENTER APPRENTICE Office Visit [facility] - Ophthalmology [address] [place] [phone] Song Hobson MD [address] [place] [address] DE[place] [phone] documented as of this encounter Procedures Procedure Name Priority Date/Time Associated Diagnosis Comments VAS BILATERAL VENOUS DUPLEX UE Routine 01/16/2024 4:40 PM CDT Acute myeloid leukemia in remission (HCC) documented in this encounter Results * VAS BILATERAL VENOUS DUPLEX UE (01/16/2024 4:40 PM CDT) Anatomical Region Laterality Modality Upper Extremity Intravascular Ul trasound 01/16/2024 4:01 PM CDT Narrative Procedure Note Sivakumar Peoples MD - 01/17/2024 Britni Winston PA-C VASCULAR LAB ORDERAB LES documented in this encounter Visit Diagnoses Diagnosis 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 documented in this encounter Care Teams Technical Healthcare Consultant Relationship Specialty Start Date End Date Nilam Mayers MD [address] [place] [phone] PCP - General Family Medicine 09/04/23 04/18/24 documented as of this encounter
--- OUTSIDE RECORDS SUMMARY | 2024-08-31 21:27 | XMS_ITS | Encounter Summary ---
Author Organization [facility] Address [address] [place], [place] [address] [address] Care Team Providers Care Sole Conforming Machine Operator Name Role Phone Nilam Mayers MD Primary Care Provider [phone]- [phone] Encounter Details Date Type Department Care Team (Latest Contact Info) Description 01/07/2024 8:35 AM CDT - 01/07/2024 11:59 PM CDT Hospital Encounter [facility] [address] [place] [address] Hussain Carias MD [address] [place] [address] Britni Winston, PABaronC [address] [place] [address] Discharge Disposition: Home or Self [...] and heating? Not hard at all 12/30/2023 [facility] [place] [facility] Occupat ional Health - Occupational Stress [...] place to sleep or slept in a long-term (including now)? Yes 12/30/2023 Sex and Gender Information Value Date Recorded Sex Assigned at Not on file Gender Identity Female 02/13/2024 1:12 PM CDT Sexual Orientation Not on file documented as of this encounter Last Filed Vital Signs Vital Sign Reading Time Taken Comments Blood Pressure 111/72 01/07/2024 11:49 AM CDT Pulse 93 01/07/2024 11:49 AM CDT Temperature 36.6 ??C (97.9 ??F) 01/07/2024 1 1:49 AM CDT Respiratory Rate 18 01/07/2024 11:4 9 AM CDT Oxygen Saturation 100% 01/07/2024 11: 49 AM CDT Inhaled Oxygen Concentration - - Weight 108.2 kg (238 lb 9.6 oz) 01/07/2024 8:46 AM CDT Height - - Body Mass Index 43.64 12/30/2023 4:50 PM CDT documented in this encounter Functional [...] 2 times daily 60 tablet 1 10/17/2023 levoFLOXacin (Levaquin) 500 MG tablet Take 1 (one) tablet by mouth once daily 30 tablet 1 12/15/2023 01/23/2024 medroxyPROGESTERone (Depo-Provera) 150 MG/ML vial Inject 1 mL into muscle every 84 days 10/14/2023 04/30/2024 ondansetron (Zofran) 8 MG tabletIndications:Ca ncer Chemotherapy-Induced Nausea and Vomiting Take one tablet by mouth twice a day 1 hour before midostaurin on days 8 to 21 and one tablet every 12 hours as needed for breakthrough nausea/vomiting. Reasons: Nausea and Vomiting caused by Cancer Chemotherapy 100 tablet 11 12/01/2023 04/30/2024 posaconazole (Noxafil) 100 MG tabletIndications:Ac kate myeloid [...] Nausea/Vomiting 04/30/2024 valACYclovir (Valtrex) 500 MG tabletIndications: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) Take 1 (one) tablet by mouth 2 times daily 60 tablet 11 11/03/2023 08/23/2024 documented as of this encounter Progress Notes * Britni Winston PA-C - 01/07/2024 9:51 AM CDT Images from the original note were not included. 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 Originally in August of 2023 was admitted to [facility] c/o flu like symptoms and ultimately had marrow biopsy revealing 78% blasts on marrow and flow cytometry confirmed NPM1 mutation. Was sent to [facility] for AML. Completed 7 + 3 induction, cou nt recovery BMBx on 09/1723 confirmed remission. Has completed 2 consolidation therapies. 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 All have been worked up both in the inpatient and outpatient setting, well controlled on current medication regimen. Prior to current admission has no complaints and denies any fever, chills, nausea, vomiting, diarrhea, dizziness, lightheadedness, SOB, cough, or LUTS. Tolerated D1-4 well without any side effects or transfusion requirements. She was discharged on 12/06/23. Interval History: C4D9 HiDAC. Does note active bleeding today to her upper gums. Reports recent fall while hospitalized last weekto her face, but CT head completed at that time was unremarkable. Notes her gums have intermittently bled since this fall. Notes that, after her fall, her front upper teeth were sore, but this has improved daily since the initial fall. She denies any loose or broken teeth. Denies fevers, chills, nausea, vomiting, diarrhea, or constipation. Denies any persistent anal pain. Reports previous abscess to left axilla has resolved. VSS ANC 260 Review of Systems: Review of Systems Constitutional: Negative for chills, fever, malaise/fatigue and weight loss. HENT: Negative for nosebleeds and sore throat. Eyes: Negative for blurred [...] Neurological: Negative for dizziness, tingling and headaches. Endo/Heme/Allergies: Bruises/bleeds easily. Past Medical & Surgical History None / Negative Past Oncology History Oncology History Acute myeloid leukemia in remission (HCC) 09/03/2023 Initial Diagnosis 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 ([facility]) 09/06/2023 - Chemotherapy cytarabine (Cytosar) [...] Active Treatment Days for Sarah Mckeon (until 01/08/2024) 01/02/2024 ONCOLOGY TREATMENT: IP AML CONSOLIDATION - AGE <60 (HIGH DOSE CYTARABINE)(SANDHU HIDAC) Day 5, Cycle 4 (Started) Pre-Medications: ondansetron (Zofran) injection 8 mg, dexAMETHasone (Decadron) injection 8 mg Chemotherapy: cytarabine (Cytosar) 6,700 mg in 0.9% NaCl IV 597 mL infusion Medications SCHEDULED MEDICATIONS: Current Outpatient Medications Medication Sig ??? Carboxymethylcellulose Sodium (ARTIFICIAL TEARS OP) ??? dexAMETHasone (Decadron) 0.1 % ophthalmic suspension Instill 2 (two) drops into both eyes 4 times daily ??? famotidine (Pepcid) 20 MG tablet Take 1 (one) tablet by mouth 2 times daily ??? levoFLOXacin (Levaquin) 500 MG tablet Take 1 (one) tablet by mouth once daily (Patient not taking: Reported on 12/30/2023) ??? medroxyPROGESTERone (Depo-Provera) 150 MG/ML vial Inject 1 mL into muscle every 84 days ??? ondansetron (Zofran) 8 MG tablet Take one tablet by mouth twice a day 1 hour before midostaurinon days 8 to 21 and one tablet every 12 hours as needed for breakthrough nausea/vomiting. Reasons: Nausea and Vomiting caused by Cancer Chemotherapy (Patient not taking: Reported on 12/30/2023) ??? posaconazole (Noxafil) 100 MG tablet Take 3 (three) tablets by mouth daily with dinner ??? potassium chloride ER 10 MEQ tablet Take 2 (two) tablets by mouth once daily ??? prochlorperazine (Compazine) 10 MG tablet Take 1 (one) tablet by mouth every 8 hours as needed for Nausea/Vomiting (Patient not taking: Reported on 12/30/2023) ??? valACYclovir (Valtrex) 500 MG tablet Take 1 (one) tablet by mouth 2 times daily Current Facility-Administered Medications Medication ??? 0.9% NaCl infusion rate and volume ??? 0.9% NaCl injection 3 mL And ??? 0.9% NaCl injection 1-10 mL Allergies No Known Allergies OBJECTIVE Physical Exam Vitals: 01/07/24 0846 BP: 141/89 Resp: (!) 124 Temp: 98.4 ??F SpO2: 100% Weight: 108.2 kg (238 lb 9.6 oz) Wt Readings from Last 3 Encounters: 01/07/24 108.2 kg (238 lb 9.6 oz) 01/03/24 108 kg (238 lb 3.2 oz) 12/30/23 108.7 kg (239 lb 11.2 oz) Karnofsky/ECO/0 General appearance - well-appearing, and in no distress Mental status - alert, oriented to person, place, and time Mouth - moist mucous membranes, no lesions to oropharynx seen on exam, active bleeding to upper gumline Chest - clear to auscultation b/l, no wheezes, rales or rhonchi, symmetric air entry Heart - normal rate, regular rhythm, no murmurs Abdomen - soft, nontender, nondistended, bowel sounds present Extremities - no pedal edema, no clubbing or cyanosis Skin - normal coloration and turgor, no rashes noted, PIP noted to previous left axillary abscess site, otherwise resolved CVC - dressing dry and intact without redness, swelling, or stated tenderness Laboratory Results Recent Labs Component Name 01/07/24 0855 01/03/24212701/02/24205101/01/24211712/31/232053 WBC 0.5* 2.5* 2.9* 3.6* 5.1 RBC 2.98* 2.53* 2.63* 2.80* 2.31* HGB 8.3* 7.1* 7.4* 7.9* 6.6* HCT 23.6* 20.0* 21.1* 22.4* 19.1* MCV 79.2* 79.1* 80.2 80.0 82.7 MCHC 35.2 35.5 35.1 35.3 34.6 PLTCOUNT 3* 18* 25* 32* 41* NEUTPCT - - 84.4* 87.5* 71.4 LYMPHPCT - - 11.4* 7.2* 10.0* NEUTABS 0.29* 0.26* 2.35 2.43 2.44 3.14 3.66 LYMPHABS 0.25* 0.08* 0.33* 0.26* 0.51* BASOABS - - 0.00 0.00 0.00 Recent Labs Component Name 01/07/24 0855 01/03/24212701/02/242051 POTASSIUM 3.8 4.3 3.6 CO2 20* 23 24 BUN 16 20 18 CREATININE 0.69 0.75 0.73 EGFR >90 >90 >90 GLUCOSE 180* 286* 213* CALCIUM 9.7 9.6 9.4 MAGNESIUM 1.8 2.1 2.2 PHOS 4.0 4.3 3.9 ALT 29 49 35 AST 12 31 14 ALKPHOS 65 65 69 Recent Labs Component Name 01/07/24 0855 01/03/24212701/02/242051 MAGNESIUM 1.8 2.1 2.2 Recent Labs Component Name 01/07/24 0855 01/03/248 01/02/242051 PHOS 4.0 4.3 3.9 Pathology Results RVP (12/19/23): negative Radiology Results CT Head w/o contrast (01/01/24): No acute intracranial process. CXR (12/19/23): Right IJ approach tunneled central venous catheter that terminates at the superior cavoatrial junction. ?? Minimal interstitial prominence in the lung bases, substantially decreased from 09/28/2023. Findings could be solar sales representative and assessor of small airways disease. Otherwise, no confluent [...] and molecular remission after 7+3 -Transferred from [facility] after a BMBX showed 78% blasts on [...] consolidation. No more IT treatment planned. - Labs reviewed. Hgb stable s/p 4th cycle HiDAC, but plts 3 requiring two transfusions for active bleeding 01/06. Will monitor for ANC recovery. General transfusion parameters (leukoreduced and irradiated blood [...] Likely 2/2 to underlying hematologic dyscrasias - Asymptomatic today, still using dexa eye drops at home. 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 Plan: - Per ophtho will follow up as an outpatient, no acute concerns as of now. Next f/u 12/[address] Hobson. - Acetazolamide discontinued due to significant metabolic acidosis, even on half dose. - Continue dexamethasone eye drops during HiDAC cycles. - Artificial tears QID while inpatient. 3. Vaginal Bleeding - Medroxyprogesterone pill discontinued 10/17 concern for IIH. Confirmed with patient that she is nottaking it. - CTM - Next medroxyprogesterone injection planned for 01/09/24. 4. Hx of elevated ICP - Symptom onset during admission, 10/07/23. LP at the time revealed elevated impending pressure, butmeningitis w/u was unrevealing. - Concerns for IIH previously. - Sx now resolved as of 10/2023. 5. Anal pain - Per exam 12/17/23, no areas of erythema or tenderness. - Per pt's history, suspect anal fissure. - CTM. Advised pt to call for any signs of worsening sx and to let us know if sx do not continue toresolve. - Resolved per pt 01/07/24. 6. Left axillary abscess - Began 12/14, worsened 12/16. - Obtained left axillary US 12/16 to look for area of loculation to determine if drainage is necessary. Prelim read did not find area of loculation. - Sent Bactrim DS 2 tabs BID x 5 days, 0 RF (12/19-12/23). - Resolved 01/07/24. 7. Gumline bleeding - Active on exam 01/07/24. - 2/2 thrombocytopenia 2/2 chemotherapy, as well as recent fall 12/31/23. - 2 units plts given 01/07/24 3 >> 51 PLAN: - C4D9 HiDAC consolidation - Continue OI ppx with valtrex, posaconazole, and levaquin while neutropenic. - 2 units plts given 01/07/24 3 >> 51 - Continue to monitor ANC for count recovery DISPOSITION: RTC 01/08 for labs, ? transfusions and on 01/11 for labs, ABEL, ? Transfusions Total time of visit: 30 minutes including medical discussion and decision making Britni Winston PA-C Blood & Marrow Transplant [facility] documented in this encounter Plan of Treatment Upcoming Encounters Date Type Department Care Team (Late st Contact Info) Description 10/27/2024 10:30 AM ELECTROPHONIC ENGINEER Appointment [facility] [address] [place] [address] Hussain Carias MD [address] [place] [phone] Britni Winston PA-C [address] [place] [address] 11/17/2024 9:00 AM ELECTROPHONIC ENGINEER Office Visit [facility] - Ophthalmology [address] [place] [phone] Song Hobson MD [address] [place] [address] [place] [address] documented as of this encounter Procedures Procedure Name Priority Date/Time Associated Diagnosis Comments PLATELET COUNT AUTO STAT 01/07/2024 1 1:56 AM CDT Acute myeloid leukemia in remission (HCC) TRANSFUSE PLATELET PHERESIS UNIT(S) Routine 01/07/2024 10:59 AM CDT PREPARE PLATELET PHERESIS UNIT(S) Routine 01/07/2024 10:55 AM CDT TRANSFUSE PLATELET PHERESIS UNIT(S) Routine 01/07/2024 10:11 AM CDT PREPARE PLATELET PHERESIS UNIT(S) Routine 01/07/2024 9:59 AM CDT URIC ACID BLOOD STAT 01/07/2024 8:55 AM CDT Acute myeloid leukemia in remission (HCC) TYPE + SCREEN PANEL STAT 01/07/2024 8 :55 AM CDT Acute myeloid leukemia in remission (HCC) DIFFERENTIAL MANUAL STAT 01/07/2024 8 :55 AM CDT Acute myeloid leukemia in remission (HCC) CBC W AUTO DIFFERENTIAL STAT 01/07/2024 8:55 AM CDT Acute myeloid leukemia in remission (HCC) COMPREHENSIVE METABOLIC PANEL STAT 01/07/2024 8:55 AM CDT Acute myeloid leukemia in remission (HCC) PHOSPHORUS BLOOD STAT 01/07/2024 8:55 AM CDT Acute myeloid leukemia in remission (HCC) MAGNESIUM BLOOD STAT 01/07/2024 8:55 AM CDT Acute myeloid leukemia in remission (HCC) LDH BLOOD STAT 01/07/2024 8:55 AM CDT Acute myeloid leukemia in remission (HCC) documented in this encounter Results * (ABNORMAL) PLATELET COUNT AUTO (01/07/2024 11:56 AM CDT) [facility] Platelet Count 51(L) 150 - 420 x10E9/L 01/07/2024 12:39 PM CDT [facility] Blood BLOOD SPECIMEN / Unknown Venipuncture / Unknown 01/07/2024 11:56 AM CDT 01/07/2024 12:27 PM CDT Britni Winston PA-C LAB - HEMATOLOGY ORD ERABLES [facility] [address] [place] [address], [facility] [phone] * TRANSFUSE PLATELET PHERESIS UNIT(S) (01/07/2024 11:52 AM CDT) Britni Winston PA-C NURSING - BLOOD PROD TRANSFUSION * TRANSFUSE PLATELET PHERESIS UNIT(S), 1 Units (01/07/2024 11:52 AM CDT) Britni Winston PA-C NURSING - BLOOD PROD TRANSFUSION * TRANSFUSE PLATELET PHERESIS UNIT(S) (01/07/2024 11:01 AM CDT) Britni Winston PA-C NURSING - BLOOD PROD TRANSFUSION * TRANSFUSE PLATELET PHERESIS UNIT(S), 1 Units (01/07/2024 11:01 AM CDT) Britni Winston PA-C NURSING - BLOOD PROD TRANSFUSION * PREPARE PLATELET PHERESIS UNIT(S), 1 Units (01/07/2024 10:55 AM CDT) [facility] Unit Description LR PLT Phere PRT [facility] Unit ABO A [facility] Unit Rh POS [facility] Product Number [id number] [facility] Unit Donor # [id number] [facility] Unit Status transfused [facility] Product Code [id number] [facility] Blood Type Barcode 6200 [facility] Expiration Date [id number] [facility] Blood Bank BLOOD SPECIMEN / Unknown 01/07/2024 9:10 AM CDT Britni Winston PA-C LAB - BLOOD BANK ORD ERABLES [facility] [address] [place] [address], [place] [phone] * PREPARE PLATELET PHERESIS UNIT(S), 1 Units (01/07/2024 9:59 AM CDT) [facility] Unit Description LR PLT Phere PRT [facility] Unit ABO O [facility] Unit Rh POS [facility] Product Number [id number] [facility] Unit Donor # [id number] [facility] Unit Status transfused [facility] Product Code [id number] [facility] Blood Type Barcode 5100 [facility] Expiration Date S BLOOD BANK LAB Blood Bank BLOOD SPECIMEN / Unknown 01/07/2024 9:10 AM CDT Britni Winston PA-C LAB - BLOOD BANK ORD ERAJANES [facility] [address] [place] [address], [place] [phone] * (ABNORMAL) DIFFERENTIAL MANUAL (01/07/2024 8:55 AM CDT) [facility] Neutrophil % 51 41 - 74 % 01/07/2024 9:50 AM CDT [facility] Lymphocyte % 49(H) 17 - 47 % 01/07/2024 9:50 AM CDT [facility] Neutrophil Absolute 0.26(L) 1.60 - 7.50 x10E9/L 01/07/2024 9:50 AM T [facility] Lymphocyte Absolute 0.25(L) 1.00 - 4.40 x10E9/L 01/07/2024 9:50 AM T [facility] RBC Morphology REVIEWED 01/07/2024 9:50 AM CDT [facility] Microcytosis MANY(A) (none) 01/07/2024 9:50 AM T [facility] Blood BLOOD SPECIMEN / Unknown Venipuncture / Unknown 01/07/2024 8:55 AM CDT 01/07/2024 9:06 AM CDT Britni Winston PA-C LAB - HEMATOLOGY ORD ERABLES [address] [address], [place] [phone] * TYPE + SCREEN PANEL (01/07/2024 8:55 AM CDT) Antibody Screen NEG 9:50 AM CDT [facility] ABO Rh O POS 01/07/2024 9:50 AM CDT [facility] Blood Bank BLOOD SPECIMEN / Unknown Venipuncture / Unknown 01/07/2024 8:55 AM CDT 01/07/2024 9:10 AM CDT Britni Winston PA-C LAB - BLOOD BANK ORD ERAJANES [facility] [address] [place] [address], [place] [phone] * URIC ACID BLOOD (01/07/2024 8:55 AM CDT) Uric Acid 4.4 2.6 - 6.0 mg/dL 01/07/2024 9:36 AM CDT [facility] Blood BLOOD SPECIMEN / Unknown Venipuncture / Unknown 01/07/2024 8:55 AM CDT 01/07/2024 9:06 AM CDT Britni Winston PA-C LAB - CHEMISTRY ORDE ELYSIA Performing Organization Address City/[facility]/ZIP Co de Phone Number [address] [address], [place] [phone] * LDH BLOOD (01/07/2024 8:55 AM CDT) [facility] Total 182 125 - 243 Units/L 01/07/2024 9:36 AM CDT [facility] Blood BLOOD SPECIMEN / Unknown Venipuncture / Unknown 01/07/2024 8:55 AM CDT 01/07/2024 9:06 AM CDT Britni Winston PA-C LAB - CHEMISTRY ORDE ELYSIA [address] [place] [address], [facility] [phone] * (ABNORMAL) CBC WITH DIFFERENTIAL (01/07/2024 8:55 AM CDT) WBC 0.5(LL) 4.0 - 10.7 x10E9/L 01/07/2024 9:50 AM [facility] RBC Count 2.98(L) 3.90 - 5.20 x10E12/L 01/07/2024 9:50 AM [facility] Hemoglobin 8.3(L) 11.9 - 15.8 g/dL 01/07/2024 9:50 AM [facility] Hematocrit 23.6(L) 34.8 - 46.1 % 01/07/2024 9:50 AM [facility] MCV 79.2(L) 80.0 - 98.0 fL 01/07/2024 9:50 AM [facility] MCH 27.9 26.7 - 33.6 pg 01/07/2024 9:50 AM [facility] MCHC 35.2 31.7 - 36.3 g/dL 01/07/2024 9:50 AM [facility] RDW-CV 13.8 11.3 - 14.8 % 01/07/2024 9:50 AM [facility] Platelet Count 3(LL) 150 - 420 x10E9/L 01/07/2024 9:50 AM [facility] Preliminary Absolute Neutrophil 0.29(L) 1.60 - 7.50 x10E9/L 01/07/2024 9:50 AM [facility] Comment:Preliminary ANC pend ing manual confirmation Blood BLOOD SPECIMEN / Unknown Venipuncture / Unknown 01/07/2024 8:55 AM CDT 01/07/2024 9:06 AM CDT Britni Winston PA-C LAB - HEMATOLOGY ORD ERABLES [address] [address], [facility] [phone] * MAGNESIUM BLOOD (01/07/2024 8:55 AM CDT) Magnesium 1.8 1.6 - 2.6 mg/dL 01/07/2024 9:36 AM [facility] Blood BLOOD SPECIMEN / Unknown Venipuncture / Unknown 01/07/2024 8:55 AM CDT 01/07/2024 9:06 AM CDT Britni Winston PA-C LAB - CHEMISTRY JON NAIDU [facility] [address] [place] [address], [facility] [phone] * (ABNORMAL) COMPREHENSIVE METABOLIC PANEL (01/07/2024 8:55 AM CDT) BUN 16 7 - 26 mg/dL 01/07/2024 9:36 AM [facility] Creatinine 0.69 0.56 - 0.96 mg/dL 01/07/2024 9:36 AM [facility] Sodium 138 136 - 145 mmol/L 01/07/2024 9:36 AM [facility] Potassium 3.8 3.5 - 4.5 mmol/L 01/07/2024 9:36 AM [facility] Chloride 108(H) 98 - 107 mmol/L 01/07/2024 9:36 AM [facility] CO2 20(L) 22 - 29 mmol/L 01/07/2024 9:36 AM [facility] Glucose 180(H) 70 - 115 mg/dL 01/07/2024 9:36 AM [facility] Calcium 9.7 8.4 - 10.2 mg/dL 01/07/2024 9:36 AM [facility] Protein Total 6.6 6.0 - 8.3 g/dL 01/07/2024 9:36 AM [facility] Albumin 3.6 3.4 - 5.0 g/dL 01/07/2024 9:36 AM [facility] Bilirubin Total 0.8 0.2 - 1.2 mg/dL 01/07/2024 9:36 AM [facility] Alkaline Phosphatase 65 40 - 150 U/L 01/07/2024 9:36 AM [facility] ALT 29 5 - 55 U/L 01/07/2024 9:36 AM [facility] AST 12 5 - 34 U/L 01/07/2024 9:36 AM [facility] Anion Gap 10 6 - 16 01/07/2024 9:36 AM [facility] BUN/Creatinine Ratio 23 7 - 23 01/07/2024 9:36 AM [facility] Osmolality Calculated 292 275 - 295 mOsm/kg 01/07/2024 9:36 AM [facility] Albumin/Globulin Ratio 1.2 1.1 - 2.3 01/07/2024 9:36 AM [facility] eGFR by CKD-EPI >90 >=90 mL/min/1.7 3 m2 01/07/2024 9:36 AM [facility] Blood BLOOD SPECIMEN / Unknown Venipuncture / Unknown 01/07/2024 8:55 AM CDT 01/07/2024 9:06 AM CDT Britni Winston PA-C LAB - CHEMISTRY JON NAIDU [address] [address], [facility] [phone] * PHOSPHORUS BLOOD (01/07/2024 8:55 AM CDT) Phosphorus 4.0 2.9 - 5.1 mg/dL 01/07/2024 9:36 AM T [facility] Blood BLOOD SPECIMEN / Unknown Venipuncture / Unknown 01/07/2024 8:55 AM CDT 01/07/2024 9:06 AM CDT Britni Winston PA-C LAB - CHEMISTRY JON NAIDU [address] [address], [place] [phone] documented in this encounter Visit Diagnoses Diagnosis 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 documented in this encounter Care Teams Sole Conforming Machine Operator Relationship Specialty Start Date End Date Nilam Mayers MD [address] [place] [phone] PCP - General Family Medicine 09/04/23 04/18/24 documented as of this encounter
--- OUTSIDE RECORDS SUMMARY | 2024-08-31 21:27 | XMS_ITS | Encounter Summary ---
Author Organization [facility] Address [address] [place] [address] Care Team Providers Care Associate Professor Of Communication Name Role Phone Nilam Mayers MD Primary Care Provider +1- [phone] Encounter Details Date Type Department Care Team (Latest Contact Info) Description 01/14/2024 9:37 AM CDT - 01/14/2024 11:59 PM T Hospital Encounter [facility] [address] [place] [address] Hussain Carias MD [address] [place] [address] Kathryn Gomez, PLANER OPERATOR-RAG CUTTING MACHINE OPERATOR [address] [place], [place] [id number] Discharge Disposition: Home or Self Care Social [...] Never 12/30/2023 Overall Financial Resource Strain (CARDIA) Moriah r Date Recorded How hard is it for you to pa y for the very basics like food, housing, medical care, and heating? Not hard at all 12/30/2023 [facility] of Occupat ional Health - Occupational Stress [...] or slept in a retirement (including now)? Yes 12/30/2023 Sex and Gender Information Value Date Recorded Sex Assigned at Not on file Gender Identity Female 02/13/2024 1:12 PM CDT Sexual Orientation Not on file documented as of this encounter Last Filed Vital Signs Vital Sign Reading Time Taken Comments Blood Pressure 125/88 01/14/2024 1:00 PM CDT Pulse 111 01/14/2024 1:00 PM CDT Temperature 36.6 ??C (97.9 ??F) 01/14/2024 1:00 PM CD T Respiratory Rate 20 01/14/2024 1:00 PM CDT Oxygen Saturation 100% 01/14/2024 1:00 PM CDT Inhaled Oxygen Concentration - - Weight 109.6 kg (241 lb 9.6 oz) 024 10:20 AM CDT Height - - Body Mass Index 44.19 12/30/2023 4:50 PM CDT documented in this [...] st Contact Info) Description 10/27/2024 10:30 AM SENIOR MERCHANDISER Appointment [facility] [address] [place] [address] Hussain Carias MD [address] [place] [phone] Britni Winston, PABaronC [address] [place], [place] [phone] 11/17/2024 9:00 AM SENIOR MERCHANDISER Office Visit [facility] - Ophthalmology [address] [place] [phone] Song Hobson MD [facility]5 [facility] DEPT [place] [phone] documented as of this encounter Procedures Procedure Name Priority Date/Time Associated Diagnosis Comments PREPARE PLATELET PHERESIS UNIT(S) Routine 01/18/2024 1:17 AM CDT Pancytopenia due to chemotherapy (HCC) PREPARE PLATELET PHERESIS UNIT(S) Routine 01/18/2024 1:17 AM CDT PLATELET COUNT AUTO Routine 01/14/2024 1 :03 PM CDT Pancytopenia due to chemotherapy (HCC) TRANSFUSE PLATELET PHERESIS UNIT(S) Routine 01/14/2024 12:11 PM CDT PREPARE PLATELET PHERESIS UNIT(S) Routine 01/14/2024 11:51 AM CDT URIC ACID BLOOD STAT 01/14/2024 10:36 AM CDT Acute myeloid leukemia in remission (HCC) TYPE + SCREEN PANEL STAT 01/14/2024 1 0:36 AM CDT Acute myeloid leukemia in remission (HCC) CBC W AUTO DIFFERENTIAL STAT 01/14/2024 10:36 AM CDT Acute myeloid leukemia in remission (HCC) COMPREHENSIVE METABOLIC PANEL STAT 01/14/2024 10:36 AM CDT Acute myeloid leukemia in remission (HCC) PHOSPHORUS BLOOD STAT 01/14/2024 10:3 6 AM CDT Acute myeloid leukemia in remission (HCC) MAGNESIUM BLOOD STAT 01/14/2024 10:36 AM CDT Acute myeloid leukemia in remission (HCC) LDH BLOOD STAT 01/14/2024 10:36 AM CDT Acute myeloid leukemia in remission (HCC) documented in this encounter Results * PREPARE PLATELET PHERESIS UNIT(S), 1 Units (01/18/2024 1:17 AM CDT) Unit Description N/A [facility] Blood Bank BLOOD SPECIMEN / Unknown 01/14/2024 10:52 AM CDT Kathryn Gomez PLANER OPERATOR-RAG CUTTING MACHINE OPERATOR LAB - BLOO D BANK ORDERABLES [facility] [address] [place] [address], [facility] [phone] * PREPARE PLATELET PHERESIS UNIT(S), 1 Units (01/18/2024 1:17 AM CDT) Unit Description N/A [facility] Blood Bank BLOOD SPECIMEN / Unknown 01/14/2024 10:52 AM CDT Kathryn Gomez APRN-RAG CUTTING MACHINE OPERATOR LAB - BLOO D BANK ORDERABLES [facility] [address] [place] [address], [facility] [phone] * (ABNORMAL) PLATELET COUNT AUTO (01/14/2024 1:03 PM CDT) Pathologist [facility] Platelet Count 38(L) 150 - 420 x10E9/L 01/14/2024 1:34 PM CDT [facility] Blood BLOOD SPECIMEN / Unknown Venipuncture / Unknown 01/14/2024 1:03 PM CDT 01/14/2024 1:22 PM CDT Kathryn Gomez APRN-RAG CUTTING MACHINE OPERATOR LAB - [place] TOLOGY ORDERABLES Performing Organization Address City/[facility]/ZIP Co de Phone Number [facility] [address] [place] [address], [place] [phone] * TRANSFUSE PLATELET PHERESIS UNIT(S) (01/14/2024 1:01 PM CDT) Kathryn Gomez APRN-RAG CUTTING MACHINE OPERATOR NURSING - BLOOD PROD TRANSFUSION * TRANSFUSE PLATELET PHERESIS UNIT(S), 1 Units (01/14/2024 1:01 PM CDT) Kathryn Gomez APRN-RAG CUTTING MACHINE OPERATOR NURSING - BLOOD PROD TRANSFUSION * PREPARE PLATELET PHERESIS UNIT(S), 1 Units (01/14/2024 11:51 AM CDT) Unit Description LR PLT Phere PRT [facility] Unit ABO O [facility] Unit Rh POS [facility] Product Number [id number] [facility] Unit Donor # [id number] [facility] Unit Status transfused [facility] Product Code [id number] [facility] Blood Type Barcode 5100 [facility] Expiration Date S BLOOD BANK LAB Blood Bank BLOOD SPECIMEN / Unknown 01/14/2024 10:52 AM CDT Kathryn Gomez PLANER OPERATOR-RAG CUTTING MACHINE OPERATOR LAB - BLOO D BANK ORDERABLES Performing Organization Address [facility]/ZIP Co de Phone Number [facility] [address] [place] [address], [place] [phone] * TYPE + SCREEN PANEL (01/14/2024 10:36 AM CDT) Antibody Screen NEG 11:36 AM CDT [facility] ABO Rh O POS 01/14/2024 11:36 AM CDT [facility] Blood Bank BLOOD SPECIMEN / Unknown Venipuncture / Unknown 01/14/2024 10:36 AM CDT 01/14/2024 10:52 AM CDT Britni Winston PA-C LAB - BLOOD BANK ORD ERABLES Performing Organization Address [facility]/ZIP Co de Phone Number [facility] [address] [place] [address], [place] [phone] * URIC ACID BLOOD (01/14/2024 10:36 AM CDT) Uric Acid 3.9 2.6 - 6.0 mg/dL 01/14/2024 11:14 AM CDT [facility] Blood BLOOD SPECIMEN / Unknown Venipuncture / Unknown 01/14/2024 10:36 AM CDT 01/14/2024 10:50 AM CDT Britni Winston PA-C LAB - CHEMISTRY ORDE RABLES Performing Organization Address City/[facility]/ZIP Co de Phone Number [facility] [address] [place] [address], [place] [phone] * LDH BLOOD (01/14/2024 10:36 AM CDT) LDH Total 169 125 - 243 Units/L 01/14/2024 11:14 AM CDT [facility] Blood BLOOD SPECIMEN / Unknown Venipuncture / Unknown 01/14/2024 10:36 AM CDT 01/14/2024 10:50 AM CDT Britni Winston PA-C LAB - CHEMISTRY JNO NAIDU [facility] [address] [place] [address], [facility] [phone] * (ABNORMAL) CBC WITH DIFFERENTIAL (01/14/2024 10:36 AM CDT) WBC 0.2(LL) 4.0 - 10.7 x10E9/L 01/14/2024 11:40 AM [facility] Comment:No Manual Differenti al performed. WBC count < 0.5 RBC Count 2.77(L) 3.90 - 5.20 x10E12/L 01/14/2024 11:40 AM [facility] Hemoglobin 7.9(L) 11.9 - 15.8 g/dL 01/14/2024 11:40 AM [facility] Hematocrit 21.6(L) 34.8 - 46.1 % 01/14/2024 11:40 AM [facility] MCV 78.0(L) 80.0 - 98.0 fL 01/14/2024 11:40 AM [facility] MCH 28.5 26.7 - 33.6 pg 01/14/2024 11:40 AM [facility] MCHC 36.6(H) 31.7 - 36.3 g/dL 01/14/2024 11:40 AM [facility] RDW-CV 13.5 11.3 - 14.8 % 01/14/2024 11:40 AM [facility] Platelet Count 7(LL) 150 - 420 x10E9/L 01/14/2024 11:40 AM [facility] MPV 11.4 7.8 - 11.4 fL 01/14/2024 11:40 AM [facility] Preliminary Absolute Neutrophil 01/14/2024 11:40 AM [facility] Blood BLOOD SPECIMEN / Unknown Venipuncture / Unknown 01/14/2024 10:36 AM CDT 01/14/2024 10:50 AM CDT Britni Winston PA-C LAB - HEMATOLOGY ORD ERABLES Performing Organization Address City/[facility]/ZIP Co de Phone Number [address] [address], [facility] [phone] * MAGNESIUM BLOOD (01/14/2024 10:36 AM CDT) Magnesium 1.9 1.6 - 2.6 mg/dL 01/14/2024 11:14 AM T [facility] Blood BLOOD SPECIMEN / Unknown Venipuncture / Unknown 01/14/2024 10:36 AM CDT 01/14/2024 10:50 AM CDT Britni Winston PA-C LAB - CHEMISTRY JON NAIDU Performing Organization Address City/[facility]/ZIP Co de Phone Number [address] [address], [facility] [phone] * (ABNORMAL) COMPREHENSIVE METABOLIC PANEL (01/14/2024 10:36 AM CDT) BUN 13 7 - 26 mg/dL 01/14/2024 11:14 AM [facility] Creatinine 0.67 0.56 - 0.96 mg/dL 01/14/2024 11:14 AM [facility] Sodium 140 136 - 145 mmol/L 01/14/2024 11:14 AM [facility] Potassium 3.8 3.5 - 4.5 mmol/L 01/14/2024 11:14 AM [facility] Chloride 110(H) 98 - 107 mmol/L 01/14/2024 11:14 AM [facility] CO2 21(L) 22 - 29 mmol/L 01/14/2024 11:14 AM [facility] Glucose 200(H) 70 - 115 mg/dL 01/14/2024 11:14 AM [facility] Calcium 10.2 8.4 - 10.2 mg/dL 01/14/2024 11:14 AM [facility] Protein Total 6.8 6.0 - 8.3 g/dL 01/14/2024 11:14 AM [facility] Albumin 3.6 3.4 - 5.0 g/dL 01/14/2024 11:14 AM [facility] Bilirubin Total 0.5 0.2 - 1.2 mg/dL 01/14/2024 11:14 AM [facility] Alkaline Phosphatase 83 40 - 150 U/L 01/14/2024 11:14 AM [facility] ALT 21 5 - 55 U/L 01/14/2024 11:14 AM [facility] AST 11 5 - 34 U/L 01/14/2024 11:14 AM [facility] Anion Gap 9 6 - 16 01/14/2024 11:14 AM [facility] BUN/Creatinine Ratio 19 7 - 23 01/14/2024 11:14 AM [facility] Osmolality Calculated 296(H) 275 - 295 mOsm/kg 01/14/2024 11:14 AM [facility] Albumin/Globulin Ratio 1.1 1.1 - 2.3 01/14/2024 11:14 AM [facility] eGFR by CKD-EPI >90 >=90 mL/min/1.7 3 m2 01/14/2024 11:14 AM [facility] Blood BLOOD SPECIMEN / Unknown Venipuncture / Unknown 01/14/2024 10:36 AM CDT 01/14/2024 10:50 AM [facility] Britni Winston PA-C LAB - CHEMISTRY ORDE ELYSIA [facility] [address] [place] [address], [facility] [phone] * PHOSPHORUS BLOOD (01/14/2024 10:36 AM [facility]) Phosphorus 4.0 2.9 - 5.1 mg/dL 01/14/2024 11:14 AM [facility] Blood BLOOD SPECIMEN / Unknown Venipuncture / Unknown 01/14/2024 10:36 AM CDT 01/14/2024 10:50 AM CDT Britni Winston PA-C LAB - CHEMISTRY JON NAIDU Performing Organization Address City/State/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
--- OUTSIDE RECORDS SUMMARY | 2024-08-31 21:27 | XMS_ITS | Encounter Summary ---
Author Organization [facility] Address [address] [place] [address] [place] [address] Care Team Providers Care Service Cleaner Name Role Phone Nilam Mayers MD Primary Care Provider +1- [phone] Encounter Details Date Type Department Care Team (Latest Contact Info) Description 01/07/2024 Travel Social History Tobacco Use Types Packs/Day [...] and heating? Not hard at all 12/30/2023 [facility] [place] of Occupat ional Health - Occupational Stress [...] slept in a senior care (including now)? Yes 12/30/2023 Sex and Gender [...] No 12/30/2023 documented as of this encounter Plan of Treatment Upcoming Encounters Date Type Department Care Team (Late st Contact Info) Description 10/27/2024 10:30 AM MEDICAL TRANSCRIPTION Appointment [facility] [address] [place] [address] Hussain Carias MD [address] [place] [address] Britni Winston, PABaronC [address] [place] [address] 11/17/2024 9:00 AM MEDICAL TRANSCRIPTION Office Visit [facility] - Ophthalmology [address] [place] [phone] Song Hobson MD [address] [place] [address] [place] [phone] documented as of this encounter Visit Diagnoses Not on filedocumented in this encounter Care Teams Service Cleaner Relationship Specialty Start Date End Date Nilam Mayers MD [address] [place] [phone] PCP - General Family Medicine 09/04/23 04/18/24 documented as of this encounter
--- OUTSIDE RECORDS SUMMARY | 2024-08-31 21:27 | XMS_ITS | Encounter Summary ---
Author Organization [facility] Address [address] [place] [address] [place] [address] Care Team Providers Care Tornado Chaser Name Role Phone Nilam Mayers MD Primary Care Provider +1- [phone] Encounter Details Date Type Department Care Team (Latest Contact Info) Description 01/14/2024 Travel Social History Tobacco Use Types Packs/Day [...] and heating? Not hard at all 12/30/2023 [facility] [place] of Occupat ional Health - Occupational [...] st Contact Info) Description 10/27/2024 10:30 AM RESORT DESK CLERK Appointment [facility] [address] [place] [address] Hussain Carias MD [address] [place] [address] Britni Winston, PABaronC [address] [place] [address] 11/17/2024 9:00 AM RESORT DESK CLERK Office Visit [facility] - Ophthalmology [address] [place] [phone] Song Hobson MD [address] [place] [address] [place] [phone] documented as of this encounter Visit Diagnoses Not on filedocumented in this encounter Care Teams Tornado Chaser Relationship Specialty Start Date End Date Nilam Mayers MD [address] [place] [phone] PCP - General Family Medicine 09/04/23 04/18/24 documented as of this encounter
--- OUTSIDE RECORDS SUMMARY | 2024-08-31 21:27 | XMS_ITS | Encounter Summary ---
Author Organization [facility] Address [address] [place] [address] [place] [address] Care Team Providers Care Cement Despatch Operator Name Role Phone Nilam Mayers MD Primary Care Provider +1- [phone] Encounter Details Date Type Department Care Team (Latest Contact Info) Description 01/12/2024 Travel Social History Tobacco Use Types Packs/Day [...] and heating? Not hard at all 12/30/2023 [facility] [place] of Occupat ional Health - Occupational Stress [...] or slept in a custodial (including now)? Yes 12/30/2023 Sex and Gender [...] st Contact Info) Description 10/27/2024 10:30 AM CONSTRUCTION ELECTRICIAN Appointment [facility] [address] [place] [address] Hussain Carias MD [address] [place] [address] Britni Winston, PABaronC [address] [place] [address] 11/17/2024 9:00 AM CONSTRUCTION ELECTRICIAN Office Visit [facility] - Ophthalmology [address] [place] [phone] Song Hobson MD [address] [place] [address] [place] [phone] documented as of this encounter Visit Diagnoses Not on filedocumented in this encounter Care Teams Cement Despatch Operator Relationship Specialty Start Date End Date Nilam Mayers MD [address] [place] [phone] PCP - General Family Medicine 09/04/23 04/18/24 documented as of this encounter
--- OUTSIDE RECORDS SUMMARY | 2024-08-31 21:27 | XMS_ITS | Encounter Summary ---
Author Organization [facility] Address [address] [place], [place] [address] [address] Care Team Providers Care Technical Sales Specialist Name Role Phone Nilam Mayers MD Primary Care Provider [phone] Reason for Referral * Radiology Services (Routine) - Open Specialty Diagnoses / Procedures Referred By Contac t Referred To Contact Diagnoses Anal or rectal pain Procedures CT ABDOMEN PELVIS W CONTRAST Kate Price DO [address] [facility] 2L DIV OF [facility] [place] [address] Referral ID Status Reason Start Date Expiration Date Visits Re quested Visits Authorized [id number] Open 01/23/2024 01/22/2025 1 1 Reason for Visit * Auth/Cert (Routine) Specialty Diagnoses / Procedures Referred By Contac t Referred To Contact Diagnoses AML Referral ID Status Reason Start Date Expiration Date Visits Re quested Visits Authorized [id number] 1 1 Encounter Details Date Type Department Care Team (Latest Contact Info) Description 01/19/2024 4:03 PM CDT - 01/23/2024 5:56 PM CDT Hospital Encounter [facility] 7N ACUTE [address] [place] [address] [place] [address] [place] [address] 2L DIV OF [facility] [place] [address] General Medicine Discharge Disposition: Home or Self Care [...] and heating? Not hard at all 01/19/2024 [facility] [place] [facility] - Occupational Stress [...] Sign Reading Time Taken Comments Blood Pressure 126/87 01/23/2024 12:12 PM CDT Pulse 115 01/23/2024 12:12 PM CDT Temperature 36.9 ??C (98.4 ??F) 01/23/2024 1 2:12 PM CDT Respiratory Rate 18 01/23/2024 12:1 2 PM CDT Oxygen Saturation 100% 01/23/2024 12: 12 PM CDT Inhaled Oxygen Concentration - - Weight 109.8 kg (242 lb 0.2 oz) 01/22/2024 4:55 AM CDT Height 157.5 cm (5' 2 ) 01/19/2024 4:24 PM CDT Body Mass Index 44.26 01/19/2024 4:24 PM [...] No 01/19/2024 documented as of this encounter Discharge Summaries * Stu Wayne MD - 01/23/2024 5:56 PM CDT [facility] INTERNAL MEDICINE DISCHARGE SUMMARY PATIENT: Selvin Mckeon 38 year old female : 1985 ADMISSION INFORMATION ADMISSION DISCHARGE Date: 01/19/2024 Date: 01/23/2024 Admitting Physician Kate Price DO Discharge Physician: Kate Price DO Present on Admission: 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sion (HCC) Pancytopenia due to chemotherapy (HCC) Tachycardia Anal or rectal pain Discharge Diagnoses: 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sion (HCC) Pancytopenia due to chemotherapy (HCC) Tachycardia Anal or rectal pain Admission Condition: fair Discharged Condition: good Consults: IP CONSULT TO GENERAL SURGERY IP CONSULT TO COLORECTAL SURGERY HOSPITAL COURSE Hospital Course: Ms. Mckeon is a 38 year old lady with PMHx of AML in remission, neutropenic. Presented from hem/oncclinic for anal pain (anal fissure suspected) with concern of fat stranding in CT A/P and incidental findings of PE, no evidence of DVT in US duplex. CT PE No evidence of central pulmonary embolism. Evaluation of segmental and subsegmental pulmonary arteries is degraded by suboptimal contrast opacification. CT pelvis There is redemonstrated pararectal fat stranding adjacent to the rectum,right greater than left, not significantly changed compared to prior. Requiring transfusion to achieve Hb >7 and Plt >30. Received 1u plts transfusion on 01/21. ACS consulted with no acute intervention, CRS unable to perform exam under sedation due to neutropenia, recommended continuing topical nifedipine while white count continues to improve. Will need outpatient repeat CT to ensure no abscess and CRS follow up within 2 weeks. Discharged on cipro and flagyl for 6 day course. Note to PCP (e.g. vitals, labs, imaging, medication start/stop, etc. to follow): Will need repeat CT Has f/u with colorectal surgery on February 25 Significant Diagnostic Studies: Labs this admission: CBC: Recent Labs Lab 01/23/24 0039 01/22/24 1804 01/22/24 0017 WBC 4.6 4.3 2.4* HGB 7.8* 8.2* 7.4* HCT 21.4* 22.7* 20.7* MCV 80.1 79.6* 80.2 PLTCOUNT 32* 42* 15* BMP: Recent Labs Lab 01/23/24 0039 01/22/24 0017 01/21/24 0005 NA 142 142 140 POTASSIUM 3.3* 3.4* 3.7 CL 113* 109* 108* BUN 6* 6* 6* CREATININE 0.61 0.61 0.64 CALCIUM 9.4 9.2 9.3 CMP: Recent Labs Lab 01/19/24 0921 01/16/24 1028 01/14/24 1036 AST 9 11 11 ALT 14 21 21 TBILI 0.5 0.5 0.5 ALKPHOS 69 82 83 ALB 3.2* 3.5 3.6 PROT 6.9 6.8 6.8 Coagulation: No results for input(s): PT , INR , APTT in the last 168 hours. Pertinent Microbiology: Microbiology Results (Displays last 21 days for this encounter ONLY) Procedure Component Value - Date/Time CULTURE BLOOD [[id number]] (Normal) Collected: 01/19/24 1111 Lab Status: Preliminary result Specimen: Blood Peripheral Updated: 01/21/24 1432 Culture No growth CULTURE BLOOD [[id number]] (Normal) Collected: 01/19/24 1111 Lab Status: Preliminary result Specimen: Blood Peripheral Updated: 01/21/24 1432 Culture No growth Pending labs: Imaging: (only include the pertinent ones) CT CHEST PE W ABD PELVIS W [...] colitis. > Dictated by Partha Ryan MD (president [employer]). I, Feliciano Ordaz MD have personally reviewed and interpreted this examination/study. > Interpreting Provider: Feliciano Ordaz MD on 01/19/2024 11:59 PM Discharge Exam: Vitals: BP 126/87 (BP Location: Right arm, Patient Position: Sitting) Pulse (!) 115 Temp 98.4 ??F (36.9??C) (Oral) Resp 18 Ht 1.575 m (5' 2 ) Wt 109.8 kg (242 lb 0.2 oz) SpO2 100% Gen: Alert, cooperative, no distress Head: Normocephalic, without obvious abnormality, atraumatic Eyes: Conjunctivae/corneas clear, EOMI Nose: Mucosa normal. No drainage. Throat: Moist mucous membranes Neck: No JVD, no carotid bruit, trachea midline Back: Symmetric, no curvature Resp: CTAB, no wheezes/crackles CV: RRR, S1S2, No M/R/G Abd: S/NT/ND, BS+, no bruits Ext: No clubbing, cyanosis, edema; no skin changes consistent with venous stasis or arterial disease Pulses: 2+ DP B Skin: Skin color, texture, turgor normal. No rashes or lesions Neuro: No focal deficits DISCHARGE PLANNING Disposition: Home Patient Instructions: Medication List START taking these medications ciprofloxacin 750 MG tablet Commonly known as: Cipro Take 1 (one) tablet by mouth every 12 hours for 6 days diazePAM 5 MG tablet Commonly known as: Valium Take 1 (one) tablet by mouth 3 times daily as needed dilTIAZem 1% Crea Apply to affected area 2 times daily docusate sodium 50 MG capsule Commonly known as: Colace Take 1 (one) capsule by mouth once daily as needed for Constipation polyethylene glycol 3350 17 GM/SCOOP powder Commonly known as: Miralax Take 17 (seventeen) g by mouth once daily senna 8.6 MG tablet Commonly known as: Senokot Take 1 (one) tablet by mouth once daily as needed for Constipation CHANGE how you take these medications oxyCODONE (immediate release) 5 MG tablet Commonly known as: Roxicodone Take 1 (one) tablet by mouth every 6 hours as needed for Pain What changed: Another medication with the same name was removed. Continue taking this medication, and follow the directions you see here. CONTINUE taking these medications ARTIFICIAL TEARS OP famotidine 20 MG tablet Commonly known as: Pepcid Take 1 (one) tablet by mouth 2 times daily Hemorrhoidal Hygiene 50 % 1 Pad by Apply externally route as needed medroxyPROGESTERone 150 MG/ML vial Commonly known as: Depo-Provera menthol-zinc oxide 0.44-20.6 % ointment Commonly known as: Calmoseptine Apply to affected area 3 times daily as needed for Other (Apply to perirectal area TID as needed for rectal pain) metroNIDAZOLE 500 MG tablet Commonly known as: Flagyl Take 1 (one) tablet by mouth every 8 hours for 6 days posaconazole 100 MG tablet Commonly known as: Noxafil Take 3 (three) tablets by mouth daily with dinner potassium chloride ER 10 MEQ tablet Take 2 (two) tablets by mouth once daily valACYclovir 500 MG tablet Commonly known as: Valtrex Take 1 (one) tablet by mouth 2 times daily STOP taking these medications acetaZOLAMIDE 250 MG tablet Commonly known as: Diamox levoFLOXacin 500 MG tablet Commonly known as: Levaquin ASK your doctor about these medications ondansetron 8 MG tablet Commonly known as: Zofran Take one tablet by mouth twice a day 1 hour before midostaurin on days 8 to 21 and one tablet every12 hours as needed for breakthrough nausea/vomiting. Reasons: Nausea and Vomiting caused by Cancer Chemotherapy prochlorperazine 10 MG tablet Commonly known as: Compazine Where to Get Your Medications These medications were sent to [facility] - [address] [address] [address] [facility] [address] ciprofloxacin 750 MG tablet diazePAM 5 MG tablet dilTIAZem 1% Crea docusate sodium 50 MG capsule metroNIDAZOLE 500 MG tablet oxyCODONE (immediate release) 5 MG tablet polyethylene glycol 3350 17 GM/SCOOP powder senna 8.6 MG tablet Discharge Instructions [facility] SUMMARY OF HOSPITALIZATION (01/19/2024 through 01/23/2024) Ms. Mike Ryan were admitted to [facility] on 01/19/2024 for anal pain and concern for infection.We had our colorectal surgeons review your case and they recommended medication to help with your pain. Given your cancer we had our oncologists review your case and they recommended antibiotics and antivirals and medications to help your cell counts. You pain improved and your cell counts returned to normal levels. On 01/23/2024, we felt that you were ready for discharge from the hospital. ----- PLEASE NOTE THE FOLLOWING: Medications: Please take only the medications as described in the table below: Current Discharge Medication List UNREVIEWED MEDICATIONS Instructions Authorizing Provider ondansetron 8 MG tablet Commonly known as: Zofran Quantity Dispensed: 100 tablet Take one tablet by mouth twice a day 1 hour before midostaurin on days 8 to 21 and one tablet every12 hours as needed for breakthrough nausea/vomiting. Reasons: Nausea and Vomiting caused by Cancer Chemotherapy Hussain Carias MD prochlorperazine 10 MG tablet Commonly known as: Compazine Take 1 (one) tablet by mouth every 8 hours as needed for Nausea/Vomiting START taking these medications Instructions Authorizing Provider ciprofloxacin 750 MG tablet Commonly known as: Cipro Quantity Dispensed: 12 tablet Take 1 (one) tablet by mouth every 12 hours for 6 days Sivakumar Rosa diazePAM 5 MG tablet Commonly known as: Valium Quantity Dispensed: 30 tablet Take 1 (one) tablet by mouth 3 times daily as needed Sivakumar Rosa dilTIAZem 1% Crea Quantity Dispensed: 100 g Apply to affected area 2 times daily Sivakumar Rosa docusate sodium 50 MG capsule Commonly known as: Colace Quantity Dispensed: 30 capsule Take 1 (one) capsule by mouth once daily as needed for Constipation Sivakumar Rosa polyethylene glycol 3350 17 GM/SCOOP powder Commonly known as: Miralax Quantity Dispensed: 238 g Take 17 (seventeen) g by mouth once daily Sivakumar Rosa senna 8.6 MG tablet Commonly known as: Senokot Quantity Dispensed: 30 tablet Take 1 (one) tablet by mouth once daily as needed for Constipation Sivakumar Rosa CONTINUE taking these medications which have CHANGED Instructions Authorizing Provider oxyCODONE (immediate release) 5 MG tablet What changed: Another medication with the same name was removed. Continue taking this medication, and follow the directions you see here. Commonly known as: Roxicodone Quantity Dispensed: 8 tablet Take 1 (one) tablet by mouth every 6 hours as needed for Pain Sivakumar Rosa CONTINUE taking these medications which have NOT CHANGED Instructions Authorizing Provider ARTIFICIAL TEARS OP famotidine 20 MG tablet Commonly known as: Pepcid Quantity Dispensed: 60 tablet Take 1 (one) tablet by mouth 2 times daily Britni Winston PA-C Hemorrhoidal Hygiene 50 % Quantity Dispensed: 100 Each 1 Pad by Apply externally route as needed Kathryn Gomez APRN-CHU medroxyPROGESTERone 150 MG/ML vial Commonly known as: Depo-Provera Inject 1 mL into muscle every 84 days menthol-zinc oxide 0.44-20.6 % ointment Commonly known as: Calmoseptine Quantity Dispensed: 113 g Apply to affected area 3 times daily as needed for Other (Apply to perirectal area TID as needed for rectal pain) Britni Winston PA-C metroNIDAZOLE 500 MG tablet Commonly known as: Flagyl Quantity Dispensed: 18 tablet Take 1 (one) tablet by mouth every 8 hours for 6 days Sivakumar Rosa posaconazole 100 MG tablet Commonly known as: Noxafil Quantity Dispensed: 90 tablet Take 3 (three) tablets by mouth daily with dinner Britni Winston PA-C potassium chloride ER 10 MEQ tablet Quantity Dispensed: 30 tablet Take 2 (two) tablets by mouth once daily Britni Winston PA-C valACYclovir 500 MG tablet Commonly known as: Valtrex Quantity Dispensed: 60 tablet Take 1 (one) tablet by mouth 2 times daily JOHN Camilo STOP taking these medications acetaZOLAMIDE 250 MG tablet Commonly known as: Diamox levoFLOXacin 500 MG tablet Commonly known as: Levaquin 2. Follow up: Future Appointments February 12:30 PM (Arrive by 12:15 PM) Appointment with Lizzie Escudero at [facility] - General Surgery ([phone]) [address] [place] [phone] As directed Imaging: CT ABDOMEN PELVIS W CONTRAST Please make an appointment with your primary care physician for 1-2 weeks after discharge. You will be contacted by a discharge operations expert to make the following appointments: colorectal surgery clinic 3. Lifestyle Modifications: - Please AVOID smoking cigarettes. Please talk to your Primary Care Physician if you need help quitting smoking. - Please cut down on alcohol use. Please talk with your Primary Care Physician if you need help cutting down or quitting drinking alcohol. - Please maintain a healthy diet including fresh fruits & vegetables, low-salt food, and low-calorie food in order to help you lose weight and live a healthy lifestyle. - Discuss an exercise program with your Primary Care Physician. We recommended that most individuals exercise for 20 minutes at least 5 times per week 4. In the case of emergency: - Please call your physician or report to the nearest emergency room if you develop new or concerning symptoms, including, but not limited to, chest pain, palpitations, shortness of breath, nausea, vomiting, confusion, and/or numbness or tingling. Thank you for allowing us to participate in your care. Sincerely, [facility] phone number: Scheduling line phone number: Signed: Stu Wayne MD Internal Medicine Resident [facility] 01/23/2024 9:51 PM Associated attestation - Kate Price DO - 01/25/2024 11:32 AM CDT I have seen and examined the patient with the resident and I agree with the findings and plan of care as documented by the resident. In addition: Significant improvement in symptoms during admission. Continue oral abx to complete 10day course. Outpatient follow up with CRS and repeat CT imaging. Date of Service: 01/23/2024 Kate Price DO documented in this encounter Discharge Instructions * Discharge Instructions* Sivakumar Rosa MD - 01/23/2024 12:01 PM CDT [facility] SUMMARY OF HOSPITALIZATION (01/19/2024 through 01/23/2024) Ms. Mike Ryan were admitted to [facility] on 01/19/2024 for anal pain and concern for infection.We had our colorectal surgeons review your case and they recommended medication to help with your pain. Given your cancer we had our oncologists review your case and they recommended antibiotics and antivirals and medications to help your cell counts. You pain improved and your cell counts returned to normal levels. On 01/23/2024, we felt that you were ready for discharge from the hospital. ----- PLEASE NOTE THE FOLLOWING: Medications: Please take only the medications as described in the table below: Current Discharge Medication List UNREVIEWED MEDICATIONS Instructions Authorizing Provider ondansetron 8 MG tablet Commonly known as: Zofran Quantity Dispensed: 100 tablet Take one tablet by mouth twice a day 1 hour before midostaurin on days 8 to 21 and one tablet every12 hours as needed for breakthrough nausea/vomiting. Reasons: Nausea and Vomiting caused by Cancer Chemotherapy Hussain Carias MD prochlorperazine 10 MG tablet Commonly known as: Compazine Take 1 (one) tablet by mouth every 8 hours as needed for Nausea/Vomiting START taking these medications Instructions Authorizing Provider ciprofloxacin 750 MG tablet Commonly known as: Cipro Quantity Dispensed: 12 tablet Take 1 (one) tablet by mouth every 12 hours for 6 days Sivakumar Rosa diazePAM 5 MG tablet Commonly known as: Valium Quantity Dispensed: 30 tablet Take 1 (one) tablet by mouth 3 times daily as needed Sivakumar Rosa dilTIAZem 1% Crea Quantity Dispensed: 100 g Apply to affected area 2 times daily Sivakumar Rosa docusate sodium 50 MG capsule Commonly known as: Colace Quantity Dispensed: 30 capsule Take 1 (one) capsule by mouth once daily as needed for Constipation Sivakumar Rosa polyethylene glycol 3350 17 GM/SCOOP powder Commonly known as: Miralax Quantity Dispensed: 238 g Take 17 (seventeen) g by mouth once daily Sivakumar Rosa senna 8.6 MG tablet Commonly known as: Senokot Quantity Dispensed: 30 tablet Take 1 (one) tablet by mouth once daily as needed for Constipation Sivakumar Rosa CONTINUE taking these medications which have CHANGED Instructions Authorizing Provider oxyCODONE (immediate release) 5 MG tablet What changed: Another medication with the same name was removed. Continue taking this medication, and follow the directions you see here. Commonly known as: Roxicodone Quantity Dispensed: 8 tablet Take 1 (one) tablet by mouth every 6 hours as needed for Pain Sivakumar Rosa CONTINUE taking these medications which have NOT CHANGED Instructions Authorizing Provider ARTIFICIAL TEARS OP famotidine 20 MG tablet Commonly known as: Pepcid Quantity Dispensed: 60 tablet Take 1 (one) tablet by mouth 2 times daily Britni Winston PA-C Hemorrhoidal Hygiene 50 % Quantity Dispensed: 100 Each 1 Pad by Apply externally route as needed Kathryn Gomez APRN-CHU medroxyPROGESTERone 150 MG/ML vial Commonly known as: Depo-Provera Inject 1 mL into muscle every 84 days menthol-zinc oxide 0.44-20.6 % ointment Commonly known as: Calmoseptine Quantity Dispensed: 113 g Apply to affected area 3 times daily as needed for Other (Apply to perirectal area TID as needed for rectal pain) Britni Winston PA-C metroNIDAZOLE 500 MG tablet Commonly known as: Flagyl Quantity Dispensed: 18 tablet Take 1 (one) tablet by mouth every 8 hours for 6 days Sivakumar Rosa posaconazole 100 MG tablet Commonly known as: Noxafil Quantity Dispensed: 90 tablet Take 3 (three) tablets by mouth daily with dinner Britni Winston PA-C potassium chloride ER 10 MEQ tablet Quantity Dispensed: 30 tablet Take 2 (two) tablets by mouth once daily Britni Winston PA-C valACYclovir 500 MG tablet Commonly known as: Valtrex Quantity Dispensed: 60 tablet Take 1 (one) tablet by mouth 2 times daily Cori Hill APRN-CHU STOP taking these medications acetaZOLAMIDE 250 MG tablet Commonly known as: Diamox levoFLOXacin 500 MG tablet Commonly known as: Levaquin 2. Follow up: Future Appointments February 12:30 PM (Arrive by 12:15 PM) Appointment with Lizzie Escudero at [facility] - General Surgery ([phone]) [address] [place] [phone] As directed Imaging: CT ABDOMEN PELVIS W CONTRAST Please make an appointment with your primary care physician for 1-2 weeks after discharge. You will be contacted by a discharge operations expert to make the following appointments: colorectal surgery clinic 3. Lifestyle Modifications: - Please AVOID smoking cigarettes. Please talk to your Primary Care Physician if you need help quitting smoking. - Please cut down on alcohol use. Please talk with your Primary Care Physician if you need help cutting down or quitting drinking alcohol. - Please maintain a healthy diet including fresh fruits & vegetables, low-salt food, and low-calorie food in order to help you lose weight and live a healthy lifestyle. - Discuss an exercise program with your Primary Care Physician. We recommended that most individuals exercise for 20 minutes at least 5 times per week 4. In the case of emergency: - Please call your physician or report to the nearest emergency room if you develop new or concerning symptoms, including, but not limited to, chest pain, palpitations, shortness of breath, nausea, vomiting, confusion, and/or numbness or tingling. Thank you for allowing us to participate in your care. Sincerely, [facility] phone number: Scheduling line phone number: documented in this encounter Medications at Time of Discharge Medication Sig Dispensed Refills Start Date End Date Carboxymethylcellulo se Sodium (ARTIFICIAL TEARS OP) famotidine (Pepcid) 20 MG tabletIndications:To nsillitis Take 1 (one) tablet by mouth 2 times daily 60 tablet 1 10/17/2023 diazePAM (Valium) 5 MG tablet Take 1 (one) tablet by mouth 3 times daily as needed 30 tablet 01/23/2024 02/06/2024 dilTIAZem 1% CREA Apply to affected area [...] for rectal pain) 113 g 01/16/2024 02/06/2024 ondansetron (Zofran) 8 MG tabletIndications:Ca ncer Chemotherapy-Induced [...] 01/23/2024 03/31/2024 posaconazole (Noxafil) 100 MG tabletIndications:Ac [place] myeloid leukemia in remission (HCC) Take 3 [...] needed for Constipation 30 tablet 01/23/2024 01/28/2024 valACYclovir (Valtrex) 500 MG tabletIndications:Ac eklutna myeloid leukemia in remission (HCC) Take 1 (one) tablet by mouth 2 times daily 60 tablet 11 11/03/2023 08/23/2024 Shae Anaya (Hemorrhoidal Hygiene) 50 % 1 Pad by Apply externally route as needed 100 Each 1 01/14/2024 02/06/2024 documented as of this encounter Progress Notes * Tunde Brooks, PharmD - 01/23/2024 5:56 PM CDT MEDICATION TO BEDSIDE DELIVERY: COMPLETE Medication to Bedside delivery was completed for Selvin Mckeon. A total of 7 prescriptions were delivered to the patient for discharge. Medications were given to NURSE (ANUEL) This delivery included a controlled substance: YES This delivery included medication that should be stored in the fridge: NO Thank you for allowing the outpatient pharmacy to participate in the care of Selvin Mckeon. If you have any questions, please contact the outpatient pharmacy at [phone]. Sixto Saunders CPhT [facility] at [address], [address] Floor [place], [place] [address] Hours of Operation Friday - Friday: 8:00am to 6:00pm Friday: 9:00am to 1:00pm Epic: [facility] *Ensure the patient and clinic's nearby ZIP codes box is unchecked* * Velma Toney MD - 01/23/2024 2:08 PM CDT Images from the original note were not included. 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 Pt was seen inclinic on Monday 01/[address] abdomen which showed oziel-rectal fat stranding and given concernf or abscess was sent home with levoflox [address] abdomen also partially visualised a segemental PE ( incompletely characterised). Pt called Friday w/ worsening oziel- anal pain and was admitted for work up and IV AB. CTPE did not show any evidence of PE but contrast ws suboptimal. Pt saturating well on room air Pt was seen by Gen surg and no intervention recommended. Seen by CRS , who recommended high fibre ,stool softeners and water intake Interval hx -Received TBO filgatrim dose 4 today -ANC 1150 today -Anal pain has resolved Review of Systems: As noted in HPI. All other systems reviewed and negative. Past Medical & Surgical History Patient Active Problem List Diagnosis Anal or rectal pain 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sion (HCC) Tachycardia Pseudotumor cerebri Hypernatremia Hypophosphatemia Anemia Vaginal bleeding IIH (idiopathic intracranial hypertension) Acute hypoxic respiratory failure (HCC) Pulmonary edema (HCC) Pancytopenia due to chemotherapy (HCC) Tonsillitis Acute myeloid leukemia in remission (HCC) Past Medical History: Diagnosis Date NEGATIVE PAST MEDICAL HISTORY - SEE PROBLEM LIST Past Surgical History: Procedure Laterality Date Section Cholecystectomy KIDNEY STONES, REMOVAL Past Oncology History Cancer Staging No matching staging information was found for the patient. Oncology History Acute myeloid leukemia in remission [...] (final anticipated cycle) Active Treatment Days for Mike Selvin Velazco (until 01/24/2024) There are no remaining days before 01/24/2024. Social History Social History Tobacco Use Smoking status: Former Packs/day: 1 Types: Cigarettes Start date: 2004 Quit date: 2010 Years since quittin.3 Smokeless tobacco: Never Substance Use Topics Alcohol use: Yes Comment: occasional Family History Family History Family history unknown: Yes OBJECTIVE Physical Exam Vitals: 01/23/24 0033 01/23/24 0420 01/23/24 0836 01/23/24 1212 BP: 106/64 120/81 144/99 126/87 Pulse: 102 103 (!) 115 (!) 115 Resp: 18 18 18 18 Temp: 98.8 ??F (37.1 ??C) 98.6 ??F (37 ??C) 97.8 ??F (36.6 ??C) 98.4 ??F (36.9 ??C) SpO2: 97% 97% 99% 100% Weight: Height: Wt Readings from Last 3 Encounters: 01/22/24 109.8 kg (242 lb 0.2 oz) 01/19/24 108.9 kg (240 lb 1.6 oz) 01/16/24 109.3 kg (240 lb 14.4 oz) ECO General: Well-developed . No acute distress. Head: Normocephalic, atraumatic. Eyes: No scleral icterus. Conjunctivae clear. Ears: Normal external ears. Hearing intact to voice. Nose: Symmetric nose. No visible drainage. Throat: Moist mucous membranes. No visible mouth sores. Neck: Supple, trachea midline. Heart: Normal S1, S2. Regular rate and rhythm. Lungs: Symmetric breath sounds. Clear to auscultation. Nonlabored respirations. Abdomen: Soft, nontender, nondistended. Bowel sounds present. Lymph: No palpable cervical or supraclavicular lymphadenopathy. Extremities: No clubbing or edema. Musculoskeletal: No spinal tenderness or visible deformity. Ambulates without assistance. Skin: Warm, dry. No rash. Neurologic: Alert, oriented. No gross focal neurologic deficits. Psychiatric: Cooperative. Appropriate mood and affect. No ASHLEY as neutropenic Laboratory Results Recent Labs Component Name 01/23/24 0039 01/22/24 1804 01/22/24 0017 01/21/24 0005 01/03/24212701/02/24205101/01/[id number]/31/232053 WBC 4.6 4.3 2.4* 1.1* - 2.9* 3.6* 5.1 RBC 2.67* 2.85* 2.58* 2.49* - 2.63* 2.80* 2.31* HGB 7.8* 8.2* 7.4* 7.2* - 7.4* 7.9* 6.6* HCT 21.4* 22.7* 20.7* 19.7* - 21.1* 22.4* 19.1* MCV 80.1 79.6* 80.2 79.1* - 80.2 80.0 82.7 MCHC 36.4* 36.1 35.7 36.5* - 35.1 35.3 34.6 PLTCOUNT 32* 42* 15* 24* - 25* 32* 41* NEUTPCT - - - - - 84.4* 87.5* 71.4 LYMPHPCT - - - - - 11.4* 7.2* 10.0* NEUTABS 1.25* 1.15* - 0.36* 0.79* 0.20* 0.25* - 2.44 3.14 3.66 LYMPHABS 2.02 - 0.89* 0.35* - 0.33* 0.26* 0.51* BASOABS - - - - - 0.00 0.00 0.00 - = values in this interval not displayed. Recent Labs Component Name 01/23/24 0039 01/22/24 0017 01/21/24 0005 01/19/24 1713 01/19/24 0921 01/16/24 1028 01/14/24 1036 POTASSIUM 3.3* 3.4* 3.7 - 4.0 3.8 3.8 CO2 22 22 21* - 20* 19* 21* BUN 6* 6* 6* - 10 8 13 CREATININE 0.61 0.61 0.64 - 0.66 0.63 0.67 EGFR >90 >90 >90 - >90 >90 >90 GLUCOSE 97 123* 108 - 201* 181* 200* CALCIUM 9.4 9.2 9.3 - 9.8 9.7 10.2 MAGNESIUM 1.8 1.8 1.8 - 1.8 1.8 1.9 PHOS 3.2 3.6 4.3 - 2.6* 3.2 4.0 ALT - - - - 14 21 21 AST - - - - 9 11 11 ALKPHOS - - - - 69 82 83 - = values in this interval not displayed. Pathology Results Personally reviewed and summarized above in Hematology & Oncology History Radiology Results Personally reviewed and summarized above in Hematology & Oncology History CT CHEST PE W ABD PELVIS W [...] colitis. > Dictated by Partha Ryan MD (president [employer]). I, Feliciano Ordaz MD have personally reviewed and interpreted this examination/study. > Interpreting Provider: Feliciano Ordaz MD on 01/19/2024 11:[address] ABDOMEN PELVIS W CONTRAST Result Date: 01/16/2024 Impression: 1.Central filling defect within a segmental branch of the right pulmonary artery whichmay represent an acute pulmonary embolism, incompletely characterized. Recommend further evaluationwith CT PE study. 2.Perirectal fat stranding without associated fluid collections or abnormality ofthe rectum which likely represents infection/inflammation. 3.2.8 x 3.0 cm heterogenous mass within the left ovary containing areas of fat density and multiple calcified foci which may represent a teratoma. Critical findings regarding the possible pulmonary embolism were discussed in detail with thepatient's care provider, GERALDINE Leija by Dr. Valdes via telephone at 2:20 PM on 01/16/2024 with readback comprehension and verification. > Dictated by Jeremy Valdes MD (president [employer]). > Dictated by Jeremy Valdes MD (Vice Chairman) 01/16/2024 2:09 PM Arlyn Bartholomew MD have personally reviewed and interpreted this ex ASSESSMENT Selvin Mckeon is a 38 year old female with AML presenting with oziel-anal pain . 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 Avoid ASHLEY -conservative management w/ pain control and stool softeners -On cefepime and metronidazole, Ok with discharge on PO antibiotic regimen per infectious disease. Will need outpatient repeat CT to ensure no abscess and CRS follow up -daily CBC and CMP -TBO filgastrim s/p 4 doses including today - blood cx drawn on admission - NGTD -O/P heme onc follow up --Transfusion parameters: (Leukoreduced and irradiated blood products) -pRBC to keep Hgb >7 if hemodynamically stable and no bleeding -PLT transfusion to keep PLT >30K -Fibrinogen > 100 Thank you for the opportunity to participate in the care of this patient. Hem/Onc consult service will continue to follow closely. Please don't hesitate to contact hem/onc consult fellow via the day light relief operator or AMION if any questions or clarifications. D/w Dr Nicole Toney MD, PGY-4 Hematology-Oncology Fellow [facility] Associated attestation - Abrahan Rivera MD - 01/23/2024 6:07 PM CDT I have seen and examined the patient with the fellow. I agree with the findings and plan of care asdocumented by the fellow. Date of fellow's note: 01/23/2024 Date of service: 01/23/2024 Abrahan Rivera MD * Trinidad Cedillo RN - 01/23/2024 1:42 PM CDT Problem: Pain/Discomfort Goal: Patient exhibits reduced pain/discomfort as evidenced by pain scores Outcome: Adequate for Discharge Goal: Patient uses pharmacological and non-pharmacological pain management strategies. Outcome: Adequate for Discharge Goal: Patient verbalizes acceptable level of pain relief and ability to engage in desired activity. Outcome: Adequate for Discharge Problem: Fall Risk Goal: Fall risk and fall related injury risk are minimized (interventions related to the fall risk can be found in the flowsheet documentation) Outcome: Adequate for Discharge * Lizzie Escudero MD - 01/23/2024 11:05 AM CDT Images from the original note were not included. Colorectal Surgery Progress Note Selvin Mckeon Age: [age] year old female Date of : 1985 Admit Date: 01/19/2024 Admitting Physician: Kate Price DO History of Present Illness: Selvin Mckeon is a 38 year old female with history of AML diagnosed in August 2023 in remission s/p induction chemotherapy followed by 4 cycles HiDAC now with ongoing neutropenia, recently diagnosed right segmental PE and 4-day history of sharp/tearing perianal pain associated with perirectal fat stranding on CT imaging. Patient states she has regular constipation with hard stools every otherday that require significant straining. She has never taken stool softeners or laxatives. She denies blood or purulence per rectum. She describes her perianal pain as constant though aggravated by bowel movements and sitting for prolonged periods of time. Denies personal or family history of anal/colorectal cancers and inflammatory bowel disease. She has never been diagnosed with a sexually transmitted illness. State she has history of anoreceptive intercourse but none since July 2023. Patient currently on cefepime and flagyl with no reported improvement in pain over the past 2 days.She has been afebrile with ongoing tachycardia (HR 100- 130s) since hospital admission on 01/19/24. Labs notable for WBC count 0.7 (ANC 0.06). CT 01/18 showed the aforementioned perirectal fat stranding without an associated fluid collection. Interval: NAEON, afebrile, HD stable Mild tachycardia overnight, (110) Reports perianal pain greatly improved Stools have been soft, non-strained WBC count 4.6 (from 4.3), ANC 1.25 (from 1.15) OBJECTIVE Vitals: Vitals: 01/22/24 2002 01/23/24 0033 01/23/24 0420 01/23/24 0836 BP: 120/77 106/64 120/81 144/99 Pulse: 107 102 103 (!) 115 Resp: 18 18 18 18 Temp: 98.8 ??F (37.1 ??C) 98.8 ??F (37.1 ??C) 98.6 ??F (37 ??C) 97.8 ??F (36.6 ??C) SpO2: 100% 97% 97% 99% Weight: Height: Temp (24hrs), Av.4 ??F (36.9 ??C), Min:97.8 ??F (36.6 ??C), Max:98.8 ??F (37.1 ??C) Systolic (36hrs), Av , Min:106 , Max:144 Diastolic (36hrs), Av, Min:64, Max:99 Estimated body mass index is 44.26 kg/m?? as calculated from the following: Height as of this encounter: 1.575 m (5' 2 ). Weight as of this encounter: 109.8 kg (242 lb 0.2 oz). PREVIOUS WEIGHTS: Wt Readings from Last 5 Encounters: 01/22/24 109.8 kg (242 lb 0.2 oz) 01/19/24 108.9 kg (240 lb 1.6 oz) 01/16/24 109.3 kg (240 lb 14.4 oz) 01/14/24 109.6 kg (241 lb 9.6 oz) 01/12/24 109.8 kg (242 lb) Physical Examination: Gen: NAD HEENT: AT/NC, EOMI, oropharynx clear CV: RRR Pulm: Unlabored respirations Abd: Soft, non-distended, non-tender MSK: Warm and well perfused, no edema Neuro: Moving all extremities, no focal deficits Psych: Appropriate mood and affect Data Review: Labs: CBC Recent Labs Component Name 01/23/24 0039 01/22/24 1804 01/22/24 0017 01/21/24 0005 WBC 4.6 4.3 2.4* 1.1* HGB 7.8* 8.2* 7.4* 7.2* HCT 21.4* 22.7* 20.7* 19.7* PLTCOUNT 32* 42* 15* 24* BMP Recent Labs Component Name 01/23/24 0039 01/22/24 0017 01/21/24 0005 01/20/24 0337 NA 142 142 140 137 POTASSIUM 3.3* 3.4* 3.7 3.7 CL 113* 109* 108* 107 CO2 22 22 21* 21* BUN 6* 6* 6* 8 CREATININE 0.61 0.61 0.64 0.64 GLUCOSE 97 123* 108 108 CALCIUM 9.4 9.2 9.3 9.3 MAGNESIUM 1.8 1.8 1.8 1.7 PHOS 3.2 3.6 4.3 4.4 Recent Imaging: CT CHEST PE W ABD PELVIS W [...] colitis. > Dictated by Partha Ryan MD (president [employer]). I, Feliciano Ordaz MD have personally reviewed and interpreted this examination/study. 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 Based on clinical history and limited anorectal exam, patient likely has anal fissure with reactive proctitis proximally. Due to neutropenia, will defer intra-anal treatments and/or exam under anesthesia at this time. Recommend continued bowel regimen (colace, Miralax, senna) in order to avoid hard stools and straining with bowel movements. Additionally recommend adequate fiber (25-35g daily) and water intake (at least 64 ounces per day) as well as valium for perianal pain relief - patient now reporting much improved pain on this regimen. Applying nifedipine ointment externally for now. Pending an improvement of ANC, would consider completeanorectal examination and nifedipine application intra-anally for optimal effect. - Patient is clear for discharge from Colorectal Surgery standpoint as long as pain is controlled - Recommend continued bowel regimen daily (Miralax, senna, colace) to avoid hard/strained BMs - Recommend adequate fiber (25-35g daily) and water (at least 64 ounces) intake daily - PO valium (5mg TID PRN) for perianal pain relief - OK for topical nifedipine to external anus only, nothing intra-anal; when ANC has recovered to within normal limits can apply nifedipine intra-anally - Have patient call to follow up with Dr. Escudero in Colorectal Surgery clinic in 2 weeks (orderplaced in Discharge Navigator) Lucas Cervantes, General Surgery PGY-3 01/23/2024 11:19 AM Attending Physician Supervisory Note I personally interviewed and examined the patient and agree with the doctor above. Lizzie Escudero MD * Gui Edwards RN - 01/22/2024 4:59 PM CDT Problem: Pain/Discomfort Goal: Patient exhibits reduced pain/discomfort as evidenced by pain scores Outcome: Progressing Goal: Patient uses pharmacological and non-pharmacological pain management strategies. Outcome: Progressing Goal: Patient verbalizes acceptable level of pain relief and ability to engage in desired activity. Outcome: Progressing * Stu Wayne MD - 01/22/2024 11:05 AM CDT [facility] INTERNAL MEDICINE PROGRESS NOTE Patient: Selvin Mckeon Sex: female Age: [age] year old Date of : 1985 Date of Admission: 01/19/2024 Date: 01/22/2024 LOS: 3 SUBJECTIVE Interval History: Pain better controlled, patient feels she is improving. White count improving. Patient resting comfortably, denies chest pain, sob, n/v/diarrhea, fevers, chills, lightheadedness, headaches. Continuing topical nifedipine. Educated pain on using oral> iv pain meds. Hospital Course: Ms. Mckeon is a 38 year old lady with PMHx of AML in remission, neutropenic. Presented from hem/oncclinic for anal pain (anal fissure suspected) with concern of fat stranding in CT A/P and incidental findings of PE, no evidence of DVT in US duplex. CT PE No evidence of central pulmonary embolism. Evaluation of segmental and subsegmental pulmonary arteries is degraded by suboptimal contrast opacification. CT pelvis There is redemonstrated pararectal fat stranding adjacent to the rectum,right greater than left, not significantly changed compared to prior. Requiring transfusion to achieve Hb >7 and Plt >30. ACS consulted with no acute intervention, CRS unable to perform exam under sedation due to neutropenia, recommended continuing topical nifedipine while white count continues to improve. OBJECTIVE Vital Signs: Vitals: 01/22/24 0012 01/22/24 0454 01/22/24 0455 01/22/24 0720 BP: 114/75 108/69 135/81 Pulse: 103 105 93 Resp: 18 18 18 Temp: 98.7 ??F (37.1 ??C) 97.9 ??F (36.6 ??C) 98.5 ??F (36.9 ??C) SpO2: 96% 94% 96% Weight: 109.8 kg (242 lb 0.2 oz) Height: Temp Min: 97.5 ??F (36.4 ??C) Max: 98.8 ??F (37.1 ??C), Pulse Min: 61 Max: 133, Resp Min: 16 Max: 24, BP Min: 95/67 Max: 145/82 Intake & Output: In: 2611.4 [P.O.:2380; I.V.:231.4] Out: 1900 [Urine:1900] Physical Exam: Physical Exam Constitutional: Appearance: She is obese. HENT: Head: Normocephalic. Mouth/Throat: Mouth: Mucous membranes are moist. Pharynx: Oropharynx is clear. Eyes: Extraocular Movements: Extraocular movements intact. Conjunctiva/sclera: Conjunctivae normal. Cardiovascular: Rate and Rhythm: Normal rate and regular rhythm. Pulses: Normal pulses. Heart sounds: Normal heart sounds. No murmur heard. No gallop. Pulmonary: Effort: Pulmonary effort is normal. No respiratory distress. Breath sounds: Normal breath sounds. No wheezing or rales. Abdominal: General: Abdomen is flat. Bowel sounds are normal. Palpations: Abdomen is soft. Tenderness: There is no abdominal tenderness. There is no guarding. Musculoskeletal: Cervical back: Neck supple. Right lower leg: No edema. Left lower leg: No edema. Skin: General: Skin is warm and dry. Neurological: Mental Status: She is alert and oriented to person, place, and time. Current Medications: Scheduled: 0.9% NaCl 3 mL Intracatheter q8h cefepime 2 g Intravenous q8h diltiaZEM 2% ointment Topical BID docusate sodium 100 mg Oral QDAY metroNIDAZOLE 500 mg Oral q8h polyethylene glycol 3350 17 g Oral QDAY posaconazole 300 mg Oral QDAY WITH DINNER senna 8.6 mg Oral QDAY tbo-filgrastim 480 mcg Subcutaneous QDAY valACYclovir 500 mg Oral BID Continuous: PRN: SALINE LOCK, INSERT AND MAINTAIN AND 0.9% NaCl AND 0.9% NaCl diazePAM diphenhydrAMINE terwmjclnoWJNTX-[id number]-dykp/mag/simethicone 1:1:1 morphine oxyCODONE (immediate release) throat lozenge Significant Lab Results: Results for orders placed or performed during the hospital encounter of 01/19/24 (from the past 24 hour(s)) CBC W AUTO DIFFERENTIAL Result Value Ref Range WBC 2.4 (L) 4.0 - 10.7 x10E9/L RBC Count 2.58 (L) 3.90 - 5.20 x10E12/L Hemoglobin 7.4 (L) 11.9 - 15.8 g/dL Hematocrit 20.7 (L) 34.8 - 46.1 % MCV 80.2 80.0 - 98.0 fL MCH 28.7 26.7 - 33.6 pg MCHC 35.7 31.7 - 36.3 g/dL RDW-CV 14.3 11.3 - 14.8 % Platelet Count 15 (LL) 150 - 420 x10E9/L MPV 8.4 7.8 - 11.4 fL Preliminary Absolute Neutrophil 0.36 (L) 1.60 - 7.50 x10E9/L BASIC METABOLIC PANEL (CALCIUM TOTAL) Result Value Ref Range BUN 6 (L) 7 - 26 mg/dL Creatinine 0.61 0.56 - 0.96 mg/dL Sodium 142 136 - 145 mmol/L Potassium 3.4 (L) 3.5 - 4.5 mmol/L Chloride 109 (H) 98 - 107 mmol/L CO2 22 22 - 29 mmol/L Glucose 123 (H) 70 - 115 mg/dL Calcium 9.2 8.4 - 10.2 mg/dL Anion Gap 11 6 - 16 BUN/Creatinine Ratio 10 7 - 23 Osmolality Calculated 293 275 - 295 mOsm/kg eGFR by CKD-EPI >90 >=90 mL/min/1.73 m2 PHOSPHORUS BLOOD Result Value Ref Range Phosphorus 3.6 2.9 - 5.1 mg/dL MAGNESIUM BLOOD Result Value Ref Range Magnesium 1.8 1.6 - 2.6 mg/dL DIFFERENTIAL MANUAL Result Value Ref Range Neutrophil % 33 (L) 41 - 74 % Lymphocyte % 37 17 - 47 % Monocyte % 23 (H) 3 - 11 % Other Cells % 7 (H) 0% % Neutrophil Absolute 0.79 (L) 1.60 - 7.50 x10E9/L Lymphocyte Absolute 0.89 (L) 1.00 - 4.40 x10E9/L Monocyte Absolute 0.55 0.15 - 1.00 x10E9/L RBC Morphology REVIEWED Microcytosis MODERATE (Abnormal) (none) Toxic Changes PRESENT (Abnormal) (none) Microbiology: Microbiology Results (Displays last 21 days for this encounter ONLY) Procedure Component Value - Date/Time CULTURE BLOOD [[id number]] (Normal) Collected: 01/19/24 1111 Lab Status: Preliminary result Specimen: Blood Peripheral Updated: 01/21/24 1432 Culture No growth CULTURE BLOOD [[id number]] (Normal) Collected: 01/19/24 1111 Lab Status: Preliminary result Specimen: Blood Peripheral Updated: 01/21/24 1432 Culture No growth Imaging & Studies: CT CHEST PE W ABD PELVIS W [...] colitis. > Dictated by Partha Ryan MD (president [employer]). I, Feliciano Ordaz MD have personally reviewed and interpreted this examination/study. > Interpreting Provider: Feliciano Ordaz MD on 01/19/2024 11:59 PM ASSESSMENT & PLAN Pancytopenia due to chemotherapy (HCC) (POA: Yes) Tachycardia (POA: Yes) 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sion (HCC) (POA: Yes) Anal or rectal pain (POA: Yes) O Anal pain: - Patient had similar complain in 12/17/23 with no concern on exam per chart review in the clinic, resolved spontaneously. - 01/16/24: Anal pain recurred and significantly and rapidly progressed with lack of response to oralABx (Flagyl 500 TID, Levaquin 750 OD). - CT abd/pelvis 01/16/24: with contrast showing perirectal fat stranding without associated fluid collections or abnormality of the rectum which likely represents infection/inflammation. - CT pelvis/Abdomen 01/17: no change in previous findings. - Home pain medications for current pain: Oxycodone 5 mg PO QD and calmoseptine, which did not help. - Lack of response to oral Abx started 01/15: Flagyl 500 TID and Levaquin 750 OD. - FU blood culture results: NGTD. Plan: - Morphine injection 2mg OD PRN, Oxycodone 2.5 mg Q4h PRN. - Patient is neutropenic, rectal exam impossible until ANC>500. - IV cefepime ( 2g OD) and Flagyl (500 Q 8 h) (EOT TBD). - CRS recommendations: - Daily bowel regimen (Miralax, senna, colace) - Adequate fiber (25-35g daily) and water (at least 64 ounces) intake daily - Continue PO valium (5mg TID prn) for perianal pain, patient had good response to it. - Topical nifedipine only recommended by CRS for external use only, nothing intra-anal - outpatient follow up with CRS #AML: #Neutropenia: - Diagnosed in 08/2023. - Under remission, neutropenic. - Follow up with Hem/Onc in clinic. - Last blood transfusion and Plt 01/19/24. - Has intermittent vaginal bleeding and nose bleed. - PPx: valacyclovir 500 BID, Levaquin 500 OD, Posaconazole 300 daily. Plan: - Continue PPx Posaconazole and Valacyclovir, holding Levaquin as she is taking cefepime. - topical nifedipine for fissure, no intra-anal - Started on Granix SC 3 times daily on 01/20/24. Transfusion paramaters: - Hb target > 7 and Plt > 30. - Last transfusion 01/19 for Hb 6.4 > 8.2 post transfusion. - Plt target > 30, last transfusion AM for count of 22. #PE concern: - Incidental finding in CT AP on 01/15. - No symptoms. - BUE and CARLO US no DVT. - CT PE ordered 01/18: no filling defect seen and evaluation of segmental and subsegmental parts is suboptimal. Plan: - Contraindicated for AC due to low PLT and HB. O Vaginal Bleeding: no active bleeding - Medroxyprogesterone pill discontinued 2/2 concern for IIH. -Confirmed with patient that she is not taking it. Plan: - CTM - Next medroxyprogesterone injection planned for 02/06/24 Code: full Diet: regular Electrolytes: Replete PRN PPx: scd Access: piv/port Dispo: home The above assessment and plan will be discussed with the attending. This note is not final until attested by attending physician. Stu Wayne MD Internal Medicine Resident [facility] 01/22/2024 11:06 AM Associated attestation - Kate Price DO - 01/22/2024 10:36 PM CDT I have seen and examined the patient with the resident and I agree with the findings and plan of care as documented by the resident. Date of Service: 01/22/2024 Kate Price DO * Lizzie Escudero MD - 01/22/2024 8:39 AM CDT Images from the original note were not included. 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 Patient states she has regular constipation with hard stools every otherday that require significant straining. She has never taken stool softeners or laxatives. She denies blood or purulence per rectum. She describes her perianal pain as constant though aggravated by bowel movements and sitting for prolonged periods of time. Denies personal or family history of anal/colorectal cancers and inflammatory bowel disease. She has never been diagnosed with a sexually transmitted illness. State she has history of anoreceptive intercourse but none since July 2023. Patient currently on cefepime and flagyl with no reported improvement in pain over the past 2 days.She has been afebrile with ongoing tachycardia (HR 100- 130s) since hospital admission on 01/19/24. Labs notable for WBC count 0.7 (ANC 0.06). CT 01/18 showed the aforementioned perirectal fat stranding without an associated fluid collection. Interval: NAEON Mild tachycardia overnight, (110) Pain improved, no longer bothers her except when defecating 2x BM yesterday without blood ANC currenlty 0.36 OBJECTIVE Vitals: Vitals: 01/22/24 0012 01/22/24 0454 01/22/24 0455 01/22/24 0720 BP: 114/75 108/69 135/81 Pulse: 103 105 93 Resp: 18 18 18 Temp: 98.7 ??F (37.1 ??C) 97.9 ??F (36.6 ??C) 98.5 ??F (36.9 ??C) SpO2: 96% 94% 96% Weight: 109.8 kg (242 lb 0.2 oz) Height: Temp (24hrs), Av.3 ??F (36.8 ??C), Min:97.7 ??F (36.5 ??C), Max:98.8 ??F (37.1 ??C) Systolic (36hrs), Av , Min:95 , Max:143 Diastolic (36hrs), Av, Min:67, Max:94 Estimated body mass index is 44.26 kg/m?? as calculated from the following: Height as of this encounter: 1.575 m (5' 2 ). Weight as of this encounter: 109.8 kg (242 lb 0.2 oz). PREVIOUS WEIGHTS: Wt Readings from Last 5 Encounters: 01/22/24 109.8 kg (242 lb 0.2 oz) 01/19/24 108.9 kg (240 lb 1.6 oz) 01/16/24 109.3 kg (240 lb 14.4 oz) 01/14/24 109.6 kg (241 lb 9.6 oz) 01/12/24 109.8 kg (242 lb) Physical Examination: Gen: NAD HEENT: AT/NC, EOMI, oropharynx clear CV: RRR Pulm: Unlabored respirations Abd: Soft, non-distended, non-tender MSK: warm and well perfused, no edema Neuro: Moving all extremities, no focal deficits Psych: Appropriate mood and affect Data Review: Labs: CBC Recent Labs Component Name 01/22/24 0017 01/21/24 0005 01/20/24 1153 01/20/24 0337 01/19/24 1713 WBC 2.4* 1.1* - 0.7* 0.6* HGB 7.4* 7.2* 8.2* 6.4* 8.2* HCT 20.7* 19.7* - 17.6* 22.6* PLTCOUNT 15* 24* - 22* 38* BMP Recent Labs Component Name 01/22/24 0017 01/21/24 0005 01/20/24 03301/19/24 1713 NA 142 140 137 136 POTASSIUM 3.4* 3.7 3.7 3.8 CL 109* 108* 107 106 CO2 22 21* 21* 20* BUN 6* 6* 8 11 CREATININE 0.61 0.64 0.64 0.70 GLUCOSE 123* 108 108 112 CALCIUM 9.2 9.3 9.3 10.0 MAGNESIUM 1.8 1.8 1.7 1.9 PHOS 3.6 4.3 4.4 3.4 Recent Imaging: CT CHEST PE W ABD PELVIS W [...] colitis. > Dictated by Partha Ryan MD (president [employer]). I, Feliciano Ordaz MD have personally reviewed and interpreted this examination/study. 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 Based on clinical history and limited anorectal exam, patient likely has anal fissure with reactive proctitis proximally. Due to neutropenia, would defer any intra-anal treatments and/or exam under anesthesia at this time. Recommend daily bowel regimen (colace, Miralax, senna) in order to avoid hard stools and straining with bowel movements. Additionally recommend adequate fiber (25-35g daily) and water intake (at least 64 ounces per day) as well as valium for perianal pain relief. Pending an improvement of ANC, would consider complete anorectal examination and topical nifedipine treatment if indicated. - No acute colorectal surgical intervention indicated at this time - Patient is clear for discharge from our standpoint as long as pain is controlled - Recommend daily bowel regimen (Miralax, senna, colace) - Recommend adequate fiber (25-35g daily) and water (at least 64 ounces) intake daily - Continue PO valium (5mg TID prn) for perianal pain control - OK for topical nifedipine to external anus only, nothing intra-anal, when ANC has recovered than can apply topical nifedipine intra-anal - Will schedule outpatient follow-up, full anorectal exam once counts have recovered Zach Jones MD General Surgery Resident, PGY-3 01/22/2024 8:40 AM Attending Physician Supervisory Note I personally interviewed and examined the patient and agree with the doctor above. Lizzie Escudero MD * Velma Toney MD - 01/22/2024 7:54 AM CDT Images from the original note were not included. 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 Pt was seen inclinic on Monday 01/[address] abdomen which showed oziel-rectal fat stranding and given concernf or abscess was sent home with levoflox [address] abdomen also partially visualised a segemental PE ( incompletely characterised). Pt called Friday w/ worsening oziel- anal pain and was admitted for work up and IV AB. CTPE did not show any evidence of PE but contrast ws suboptimal. Pt saturating well on room air Pt was seen by Gen surg and no intervention recommended. Seen by CRS , who recommended high fibre ,stool softeners and water intake Interval hx -Received TBO filgatrim dose 2 yesterday -WBC improved from to 2.4 , Anc 792 -Complaining of anal pain w/ BM , otherwise pain improved Review of Systems: As noted in HPI. All other systems reviewed and negative. Past Medical & Surgical History Patient Active Problem List Diagnosis Anal or rectal pain 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sion (HCC) Tachycardia Pseudotumor cerebri Hypernatremia Hypophosphatemia Anemia Vaginal bleeding IIH (idiopathic intracranial hypertension) Acute hypoxic respiratory failure (HCC) Pulmonary edema (HCC) Pancytopenia due to chemotherapy (HCC) Tonsillitis Acute myeloid leukemia in remission (HCC) Past Medical History: Diagnosis Date NEGATIVE PAST MEDICAL HISTORY - SEE PROBLEM LIST Past Surgical History: Procedure Laterality Date Section Cholecystectomy KIDNEY STONES, REMOVAL Past Oncology History Cancer Staging No matching staging information was found for the patient. Oncology History Acute myeloid leukemia in remission (HCC) 09/03/2023 Initial Diagnosis 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 (CMS-HCC) 09/06/2023 - Chemotherapy cytarabine (Cytosar) 460 mg [...] (final anticipated cycle) Active Treatment Days for Selvin Mckeon (until 01/23/2024) There are no remaining days before 01/23/2024. Social History Social History Tobacco Use Smoking status: Former Packs/day: 1 Types: Cigarettes Start date: 2004 Quit date: 2010 Years since quittin.3 Smokeless tobacco: Never Substance Use Topics Alcohol use: Yes Comment: occasional Family History Family History Family history unknown: Yes OBJECTIVE Physical Exam Vitals: 01/22/24 0012 01/22/24 0454 01/22/24 0455 01/22/24 0720 BP: 114/75 108/69 135/81 Pulse: 103 105 93 Resp: 18 18 18 Temp: 98.7 ??F (37.1 ??C) 97.9 ??F (36.6 ??C) 98.5 ??F (36.9 ??C) SpO2: 96% 94% 96% Weight: 109.8 kg (242 lb 0.2 oz) Height: Wt Readings from Last 3 Encounters: 01/22/24 109.8 kg (242 lb 0.2 oz) 01/19/24 108.9 kg (240 lb 1.6 oz) 01/16/24 109.3 kg (240 lb 14.4 oz) ECO General: Well-developed . No acute distress. Head: Normocephalic, atraumatic. Eyes: No scleral icterus. Conjunctivae clear. Ears: Normal external ears. Hearing intact to voice. Nose: Symmetric nose. No visible drainage. Throat: Moist mucous membranes. No visible mouth sores. Neck: Supple, trachea midline. Heart: Normal S1, S2. Regular rate and rhythm. Lungs: Symmetric breath sounds. Clear to auscultation. Nonlabored respirations. Abdomen: Soft, nontender, nondistended. Bowel sounds present. Lymph: No palpable cervical or supraclavicular lymphadenopathy. Extremities: No clubbing or edema. Musculoskeletal: No spinal tenderness or visible deformity. Ambulates without assistance. Skin: Warm, dry. No rash. Neurologic: Alert, oriented. No gross focal neurologic deficits. Psychiatric: Cooperative. Appropriate mood and affect. No ASHLEY as neutropenic Laboratory Results Recent Labs Component Name 01/22/24 0017 01/21/24 0005 01/20/24 1153 01/20/247 01/03/24212701/02/24205101/01/24211712/31/232053 WBC 2.4* 1.1* - 0.7* - 2.9* 3.6* 5.1 RBC 2.58* 2.49* - 2.23* - 2.63* 2.80* 2.31* HGB 7.4* 7.2* 8.2* 6.4* - 7.4* 7.9* 6.6* HCT 20.7* 19.7* - 17.6* - 21.1* 22.4* 19.1* MCV 80.2 79.1* - 78.9* - 80.2 80.0 82.7 MCHC 35.7 36.5* - 36.4* - 35.1 35.3 34.6 PLTCOUNT 15* 24* - 22* - 25* 32* 41* NEUTPCT - - - - - 84.4* 87.5* 71.4 LYMPHPCT - - - - - 11.4* 7.2* 10.0* NEUTABS 0.36* 0.79* 0.20* 0.25* - 0.06* 0.06* - 2.44 3.14 3.66 LYMPHABS 0.89* 0.35* - 0.42* - 0.33* 0.26* 0.51* BASOABS - - - - - 0.00 0.00 0.00 - = values in this interval not displayed. Recent Labs Component Name 01/22/24 0017 01/21/24 0005 01/20/24 0337 01/19/24 1713 01/19/24 0921 01/16/24 1028 01/14/24 1036 POTASSIUM 3.4* 3.7 3.7 - 4.0 3.8 3.8 CO2 22 21* 21* - 20* 19* 21* BUN 6* 6* 8 - 10 8 13 CREATININE 0.61 0.64 0.64 - 0.66 0.63 0.67 EGFR >90 >90 >90 - >90 >90 >90 GLUCOSE 123* 108 108 - 201* 181* 200* CALCIUM 9.2 9.3 9.3 - 9.8 9.7 10.2 MAGNESIUM 1.8 1.8 1.7 - 1.8 1.8 1.9 PHOS 3.6 4.3 4.4 - 2.6* 3.2 4.0 ALT - - - - 14 21 21 AST - - - - 9 11 11 ALKPHOS - - - - 69 82 83 - = values in this interval not displayed. Pathology Results Personally reviewed and summarized above in Hematology & Oncology History Radiology Results Personally reviewed and summarized above in Hematology & Oncology History CT CHEST PE W ABD PELVIS W [...] colitis. > Dictated by Partha Ryan MD (president [employer]). I, Feliciano Ordaz MD have personally reviewed [...] verification. > Dictated by Jeremy Valdes MD (president [employer]). > Dictatedby Jeremy Valdes MD (Vice Chairman) 01/16/2024 2:09 PM I, E. Krysten Gannon MD have personally reviewed and interpreted this ex ASSESSMENT Selvin Mckeon is a 38 year old female with AML presenting with oziel-anal pain . 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 Avoid ASHLEY -conservative management w/ pain control and stool softeners -Plt 15 this am, will need 1 U plt w/ post transfusion check to a goal of 30K -On cefepime and metronidazole, vanc discontinued -daily CBC and CMP -TBO filgastrim to help with neutropenia as pt is in CR. Until ANC >1000 x 3 days ( D3 today). If ANC improves, will consider re-imaging -initial concern for PE on 01/16/24 but no PE/ DVT identified on imaging 01/19/24. Pt is saturating well on room air - F/U blood cx drawn on admission - NGTD , although pt HDS --Transfusion parameters: (Leukoreduced and irradiated blood products) -pRBC to keep Hgb >7 if hemodynamically stable and no bleeding -PLT transfusion to keep PLT >30K -Fibrinogen > 100 Thank you for the opportunity to participate in the care of this patient. Hem/Onc consult service will continue to follow closely. Please don't hesitate to contact hem/onc consult fellow via the day light relief operator or AMION if any questions or clarifications. D/w Dr Nicole Toney MD, PGY-4 Hematology-Oncology Fellow [facility] Associated attestation - Abrahan Rivera MD - 01/22/2024 6:44 PM CDT I have seen and examined the patient with the fellow. I agree with the findings and plan of care asdocumented by the fellow. Date of fellow's note: 01/22/2024 Date of service: 01/22/2024 Abrahan Rivera MD * Ce Stafford RN - 01/21/2024 6:23 PM CDT Problem: Pain/Discomfort Goal: Patient exhibits reduced pain/discomfort as evidenced by pain scores Outcome: Progressing Goal: Patient uses pharmacological and non-pharmacological pain management strategies. Outcome: Progressing Goal: Patient verbalizes acceptable level of pain relief and ability to engage in desired activity. Outcome: Progressing * Velma Toney MD - 01/21/2024 3:51 PM CDT Images from the original note were not included. 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 Pt was seen inclinic on Monday 01/[address] abdomen which showed oziel-rectal fat stranding and given concernf or abscess was sent home with levoflox [address] abdomen also partially visualised a segemental PE ( incompletely characterised). Pt called Friday w/ worsening oziel- anal pain and was admitted for work up and IV AB. CTPE did not show any evidence of PE but contrast ws suboptimal. Pt saturating well on room air Pt was seen by Gen surg and no intervention recommended. Seen by CRS , who recommended high fibre ,stool softeners and water intake Interval hx -Received TBO filgatrim yesterday -WBC improved from 0.7 to 1.1 today -Complaining of anal pain w/ BM Review of Systems: As noted in HPI. All other systems reviewed and negative. Past Medical & Surgical History Patient Active Problem List Diagnosis Anal or rectal pain 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sion (HCC) Tachycardia Pseudotumor cerebri Hypernatremia Hypophosphatemia Anemia Vaginal bleeding IIH (idiopathic intracranial hypertension) Acute hypoxic respiratory failure (HCC) Pulmonary edema (HCC) Pancytopenia due to chemotherapy (HCC) Tonsillitis Acute myeloid leukemia in remission (HCC) Past Medical History: Diagnosis Date NEGATIVE PAST MEDICAL HISTORY - SEE PROBLEM LIST Past Surgical History: Procedure Laterality Date Section Cholecystectomy KIDNEY STONES, REMOVAL Past Oncology History Cancer Staging No matching staging information was found for the patient. Oncology History Acute myeloid leukemia in remission (HCC) 09/03/2023 Initial Diagnosis 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 (CMS-HCC) 09/06/2023 - Chemotherapy cytarabine (Cytosar) 460 mg [...] (final anticipated cycle) Active Treatment Days for Mike Selvin Velazco (until 01/22/2024) There are no remaining days before 01/22/2024. Social History Social History Tobacco Use Smoking status: Former Packs/day: 1 Types: Cigarettes Start date: 2004 Quit date: 2010 Years since quittin.3 Smokeless tobacco: Never Substance Use Topics Alcohol use: Yes Comment: occasional Family History Family History Family history unknown: Yes OBJECTIVE Physical Exam Vitals: 01/20/24 2350 01/21/24 0344 01/21/24 0915 01/21/24 1220 BP: 95/67 108/67 143/91 123/94 Pulse: (!) 110 109 (!) 123 (!) 125 Resp: Temp: 98.5 ??F (36.9 ??C) 98.6 ??F (37 ??C) 97.7 ??F (36.5 ??C) 98 ??F (36.7 ??C) SpO2: 97% 97% 98% 98% Weight: Height: Wt Readings from Last 3 Encounters: 01/19/24 108.9 kg (240 lb 1.6 oz) 01/19/24 108.9 kg (240 lb 1.6 oz) 01/16/24 109.3 kg (240 lb 14.4 oz) ECO General: Well-developed . No acute distress. Head: Normocephalic, atraumatic. Eyes: No scleral icterus. Conjunctivae clear. Ears: Normal external ears. Hearing intact to voice. Nose: Symmetric nose. No visible drainage. Throat: Moist mucous membranes. No visible mouth sores. Neck: Supple, trachea midline. Heart: Normal S1, S2. Regular rate and rhythm. Lungs: Symmetric breath sounds. Clear to auscultation. Nonlabored respirations. Abdomen: Soft, nontender, nondistended. Bowel sounds present. Lymph: No palpable cervical or supraclavicular lymphadenopathy. Extremities: No clubbing or edema. Musculoskeletal: No spinal tenderness or visible deformity. Ambulates without assistance. Skin: Warm, dry. No rash. Neurologic: Alert, oriented. No gross focal neurologic deficits. Psychiatric: Cooperative. Appropriate mood and affect. No ASHLEY as neutropenic Laboratory Results Recent Labs Component Name 01/21/24 0005 01/20/24 1153 01/20/24 0337 01/19/24 1713 01/03/24212701/02/24205101/01/24211712/31/232053 WBC 1.1* - 0.7* 0.6* - 2.9* 3.6* 5.1 RBC 2.49* - 2.23* 2.85* - 2.63* 2.80* 2.31* HGB 7.2* 8.2* 6.4* 8.2* - 7.4* 7.9* 6.6* HCT 19.7* - 17.6* 22.6* - 21.1* 22.4* 19.1* MCV 79.1* - 78.9* 79.3* - 80.2 80.0 82.7 MCHC 36.5* - 36.4* 36.3 - 35.1 35.3 34.6 PLTCOUNT 24* - 22* 38* - 25* 32* 41* NEUTPCT - - - - - 84.4* 87.5* 71.4 LYMPHPCT - - - - - 11.4* 7.2* 10.0* NEUTABS 0.20* 0.25* - 0.06* 0.06* 0.05* 0.04* - 2.44 3.14 3.66 LYMPHABS 0.35* - 0.42* 0.43* - 0.33* 0.26* 0.51* BASOABS - - - - - 0.00 0.00 0.00 - = values in this interval not displayed. Recent Labs Component Name 01/21/24 0005 01/20/24 0337 01/19/24 1713 01/19/24 0921 01/16/24 1028 01/14/24 1036 POTASSIUM 3.7 3.7 3.8 4.0 3.8 3.8 CO2 21* 21* 20* 20* 19* 21* BUN 6* 8 11 10 8 13 CREATININE 0.64 0.64 0.70 0.66 0.63 0.67 EGFR >90 >90 >90 >90 >90 >90 GLUCOSE 108 108 112 201* 181* 200* CALCIUM 9.3 9.3 10.0 9.8 9.7 10.2 MAGNESIUM 1.8 1.7 1.9 1.8 1.8 1.9 PHOS 4.3 4.4 3.4 2.6* 3.2 4.0 ALT - - - 14 21 21 AST - - - 9 11 11 ALKPHOS - - - 69 82 83 Pathology Results Personally reviewed and summarized above in Hematology & Oncology History Radiology Results Personally reviewed and summarized above in Hematology & Oncology History CT CHEST PE W ABD PELVIS W [...] colitis. > Dictated by Partha Ryan MD (president [employer]). IFeliciano MD have personally reviewed and interpreted this [...] verification. > Dictated by Jeremy Valdes MD (president [employer]). > Dictatedby Jeremy Valdes MD (Vice Chairman) 01/16/2024 2:09 PM Arlyn Bartholomew MD have personally reviewed and interpreted this ex ASSESSMENT Selvin Mckeon is a 38 year old female with AML presenting with oziel-anal pain . 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 Avoid ASHLEY -conservative management w/ pain control and stool softeners -On cefepime and metronidazole, vanc discontinued -daily CBC and CMP -TBO filgastrim to help with neutropenia as pt is in CR. Until ANC >1000 x 3 days ( D2 today) -initial concern for PE on 01/16/24 but no PE identified on imaging 01/19/24. Pt is saturating well on room air - F/U blood cx drawn on admission - NGTD , although pt HDS --Transfusion parameters: (Leukoreduced and irradiated blood products)pRBC to keep Hgb >7 if hemodynamically stable and no bleeding.PLT transfusion to keep PLT >10 K; but if bleeding, keep PLT >20K for minor bleeds and >50K for major bleeds, if possible. PLT >50K is adequate for mostinvasive procedures. PLT~100K is adequate for neurosurgical interventions. Fibrinogen > 100 Thank you for the opportunity to participate in the care of this patient. Hem/Onc consult service will continue to follow closely. Please don't hesitate to contact hem/onc consult fellow via the day light relief operator or AMION if any questions or clarifications. D/w Dr Nicole Toney MD, PGY-4 Hematology-Oncology Fellow [facility] Associated attestation - Abrahan Rivera MD - 01/22/2024 6:39 PM CDT I have seen and examined the patient with the fellow. I agree with the findings and plan of care asdocumented by the fellow. Date of fellow's note: 01/21/2024 Date of service: 01/21/2024 Abrahan Rivera MD * Lizzie Escudero MD - 01/21/2024 10:40 AM CDT Images from the original note were not included. 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 Patient states she has regular constipation with hard stools every otherday that require significant straining. She has never taken stool softeners or laxatives. She denies blood or purulence per rectum. She describes her perianal pain as constant though aggravated by bowel movements and sitting for prolonged periods of time. Denies personal or family history of anal/colorectal cancers and inflammatory bowel disease. She has never been diagnosed with a sexually transmitted illness. State she has history of anoreceptive intercourse but none since July 2023. Patient currently on cefepime and flagyl with no reported improvement in pain over the past 2 days.She has been afebrile with ongoing tachycardia (HR 100- 130s) since hospital admission on 01/19/24. Labs notable for WBC count 0.7 (ANC 0.06). CT yesterday evening showed the aforementioned perirectal fat stranding without an associated fluid collection. Interval: NAEON Pain improved, no longer bothers her expect when defecating 2x BM yesterday without blood OBJECTIVE Vitals: Vitals: 01/20/24 2011 01/20/24 2350 01/21/24 0344 01/21/24 0915 BP: 107/70 95/67 108/67 143/91 Pulse: 61 (!) 110 109 (!) 123 Resp: 17 16 17 24 Temp: 98.6 ??F (37 ??C) 98.5 ??F (36.9 ??C) 98.6 ??F (37 ??C) 97.7 ??F (36.5 ??C) SpO2: 98% 97% 97% 98% Weight: Height: Temp (24hrs), Av.2 ??F (36.8 ??C), Min:97.6 ??F (36.4 ??C), Max:98.6 ??F (37 ??C) Systolic (36hrs), Av , Min:95 , Max:145 Diastolic (36hrs), Av, Min:62, Max:96 Estimated body mass index is 43.91 kg/m?? as calculated from the following: Height as of this encounter: 1.575 m (5' 2 ). Weight as of this encounter: 108.9 kg (240 lb 1.6 oz). PREVIOUS WEIGHTS: Wt Readings from Last 5 Encounters: 01/19/24 108.9 kg (240 lb 1.6 oz) 01/19/24 108.9 kg (240 lb 1.6 oz) 01/16/24 109.3 kg (240 lb 14.4 oz) 01/14/24 109.6 kg (241 lb 9.6 oz) 01/12/24 109.8 kg (242 lb) Physical Examination: Gen: NAD HEENT: AT/NC, EOMI, oropharynx clear CV: RRR Pulm: Unlabored respirations Abd: Soft, non-distended, non-tender MSK: warm and well perfused, no edema Neuro: Moving all extremities, no focal deficits Psych: Appropriate mood and affect Data Review: Labs: CBC Recent Labs Component Name 01/21/24 0005 01/20/24 1153 01/20/24 0337 01/19/24 1713 01/19/24 1111 01/19/24 0921 WBC 1.1* - 0.7* 0.6* - 0.4* HGB 7.2* 8.2* 6.4* 8.2* - 6.7* HCT 19.7* - 17.6* 22.6* - 18.6* PLTCOUNT 24* - 22* 38* 35* 10* BMP Recent Labs Component Name 01/21/24 0005 01/20/24 0337 01/19/24 1713 01/19/24 0921 NA 140 137 136 136 POTASSIUM 3.7 3.7 3.8 4.0 CL 108* 107 106 106 CO2 21* 21* 20* 20* BUN 6* 8 11 10 CREATININE 0.64 0.64 0.70 0.66 GLUCOSE 108 108 112 201* CALCIUM 9.3 9.3 10.0 9.8 MAGNESIUM 1.8 1.7 1.9 1.8 PHOS 4.3 4.4 3.4 2.6* Recent Imaging: CT CHEST PE W ABD PELVIS W [...] colitis. > Dictated by Partha Ryan MD (president [employer]). I, Feliciano Ordaz MD have personally reviewed and interpreted this examination/study. 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 Based on clinical history and limited anorectal exam, patient likely has anal fissure with reactive proctitis proximally. Due to neutropenia, would defer any intra-anal treatments and/or exam under anesthesia at this time. Recommend daily bowel regimen (colace, Miralax, senna) in order to avoid hard stools and straining with bowel movements. Additionally recommend adequate fiber (25-35g daily) and water intake (at least 64 ounces per day) as well as valium for perianal pain relief. Pending an improvement of ANC, would consider complete anorectal examination and topical nifedipine treatment if indicated. - No acute colorectal surgical intervention indicated at this time - Recommend daily bowel regimen (Miralax, senna, colace) - Recommend adequate fiber (25-35g daily) and water (at least 64 ounces) intake daily - Continue PO valium (5mg TID prn) for perianal pain control - OK for topical nifedipine to external anus only, nothing intra-anal - Colorectal Surgery will follow; please page with any questions/concerns Zach Jones MD General Surgery Resident, PGY-3 01/21/2024 10:44 AM;sig Attending Physician Supervisory Note I personally interviewed and examined the patient and agree with the doctor above. Lizzie Escudero MD * Johanne Cruz MD - 01/21/2024 7:17 AM CDT [facility] INTERNAL MEDICINE PROGRESS NOTE Patient: Selvin Mckeon Sex: female Age: [age] year old Date of : 1985 Date of Admission: 01/19/2024 Date: 01/21/2024 LOS: 2 SUBJECTIVE Interval History: Had bowel movement today, mixed hard and soft stool. Some blood (spotting) was noticed after she strained. Hospital Course: Please refer for H&P for detailed presenting history. Ms. Mckeon is a 38 year old lady with PMHx of AML in remission, neutropenic. Presented from hem/oncclinic for anal pain (anal fissure suspected) with concern of fat stranding in CT A/P and incidental findings of PE, no evidence of DVT in US duplex. CT PE No evidence of central pulmonary embolism. Evaluation of segmental and subsegmental pulmonary arteries is degraded by suboptimal contrast opacification. CT pelvis There is redemonstrated pararectal fat stranding adjacent to the rectum,right greater than left, not significantly changed compared to prior. Requiring transfusion to achieve Hb >7 and Plt >30. ACS consulted with no acute intervention, CRS unable to perform exam under sedation due to neutropenia, recommended symptomatic treatment for anal fissure suspected in inspection with continuing antibiotics and monitoring clinical response. OBJECTIVE Vital Signs: Vitals: 01/20/24 1523 01/20/24201001/20/24 2350 01/21/24 0344 BP: 139/76 107/70 95/67 108/67 Pulse: (!) 111 61 (!) 110 109 Resp: 16 17 16 17 Temp: 98.2 ??F (36.8 ??C) 98.6 ??F (37 ??C) 98.5 ??F (36.9 ??C) 98.6 ??F (37 ??C) SpO2: 100% 98% 97% 97% Weight: Height: Temp Min: 97.5 ??F (36.4 ??C) Max: 98.6 ??F (37 ??C), Pulse Min: 61 Max: 133, Resp Min: 16 Max: 20,BP Min: 95/67 Max: 145/82 Intake & Output: In: 4854.8 [P.O.:3162; I.V.:1169.1] Out: 2400 [Urine:2400] Physical Exam: Gen: Alert, cooperative, no distress Head: Normocephalic, without obvious abnormality, atraumatic Eyes: Conjunctivae/corneas clear, EOMI Nose: Mucosa normal. No drainage. Throat: Moist mucous membranes Neck: No JVD, no carotid bruit, trachea midline Back: Symmetric, no curvature Resp: CTAB, no wheezes/crackles CV: RRR, S1S2, No M/R/G Abd: S/NT/ND, BS+, no bruits , ASHLEY not possible due to neutropenia and pain. Ext: No clubbing, cyanosis, edema; no skin changes consistent with venous stasis or arterial disease Pulses: 2+ DP B Skin: Skin color, texture, turgor normal. No rashes or lesions Neuro: No focal deficits Current Medications: Scheduled: 0.9% NaCl 3 mL Intracatheter q8h cefepime 2 g Intravenous q8h docusate sodium 100 mg Oral QDAY iopamidol Intravenous Contrast - Once metroNIDAZOLE 500 mg Oral q8h polyethylene glycol 3350 17 g Oral QDAY posaconazole 300 mg Oral QDAY WITH DINNER senna 8.6 mg Oral QDAY tbo-filgrastim 480 mcg Subcutaneous QDAY valACYclovir 500 mg Oral BID Continuous: PRN: SALINE LOCK, INSERT AND MAINTAIN AND 0.9% NaCl AND 0.9% NaCl diazePAM diphenhydrAMINE morphine oxyCODONE (immediate release) Significant Lab Results: Reviewed. Pancytopenia, ANC 20 Microbiology: Blood culture 5/6 NGTD. Imaging & Studies: Reviewed. ASSESSMENT & PLAN Pancytopenia due to chemotherapy (HCC) (POA: Yes) Tachycardia (POA: Yes) 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sion (HCC) (POA: Yes) Anal or rectal pain (POA: Yes) Ms. Mckeon is a 38 year old lady with history of AML on remission presenting with worsening anal pain and concern for infection. Also has incidental PE on imaging without evidence for DVT. No PE on repeated imaging. Remain admitted for anal fissure and oziel-rectal infection. O Anal pain: - Patient had similar complain in 12/17/23 with no concern on exam per chart review in the clinic, resolved spontaneously. - 01/16/24: Anal pain recurred and significantly and rapidly progressed with lack of response to oralABx (Flagyl 500 TID, Levaquin 750 OD). - CT abd/pelvis 01/16/24: with contrast showing perirectal fat stranding without associated fluid collections or abnormality of the rectum which likely represents infection/inflammation. - CT pelvis/Abdomen 01/17: no change in previous findings. - Home pain medications for current pain: Oxycodone 5 mg PO QD and calmoseptine, which did not help. - Lack of response to oral Abx started 01/15: Flagyl 500 TID and Levaquin 750 OD. - ACS consulted, requested CRS consult and they are following. Plan: - Morphine injection 2mg OD PRN, Oxycodone 2.5 mg Q4h PRN. - Patient is neutropenic, rectal exam impossible until ANC>500. - IV cefepime ( 2g OD) and Flagyl (500 Q 8 h) (EOT TBD), clinical evaluation daily. - FU blood culture results: NGTD. - CRS recommendations: > Daily bowel regimen (Miralax, senna, colace) > Adequate fiber (25-35g daily) and water (at least 64 ounces) intake daily > Continue PO valium (5mg TID prn) for perianal pain, patient had good response to it. > Topical nifedipine recommended by CRS for external use only, Nothing intra- anal. (Confirmed with Hem/Onc prior to ordering, order placed for diltiazem as Nifedipine not available). O AML: O Neutropenia: - Diagnosed in 08/2023. - Under remission, neutropenic. - Follow up with Hem/Onc in clinic. - Last blood transfusion and Plt 01/19/24. - Has intermittent vaginal bleeding and nose bleed. - PPx: valacyclovir 500 BID, Levaquin 500 OD, Posaconazole 300 daily. Plan: - Continue PPx Posaconazole and Valacyclovir, holding Levaquin as she is taking cefepime. - Please avoid any topical therapy for the anal fissure. - Started on Granix SC 3 times daily on 01/20/24. O Transfusion paramaters: - Hb target > 7 and Plt > 30. - Last transfusion 01/19 for Hb 6.4 > 8.2 post transfusion. - Plt target > 30, last transfusion AM for count of 22. O PE concern: - Incidental finding in CT AP on 01/15. - No symptoms. - BUE and CARLO US no DVT. - CT PE ordered 01/18: no filling defect seen and evaluation of segmental and subsegmental parts is suboptimal. Plan: - Contraindicated for AC due to low PLT and HB. O Vaginal Bleeding: no active bleeding - Medroxyprogesterone pill discontinued 10/17 concern for IIH. -Confirmed with patient that she is not taking it. Plan: - CTM - Next medroxyprogesterone injection planned for 02/06/24. Non active problems: O Thyroid nodule: - TSH 12/06 Normal. - Incidental findings on CT, 0.7 left lobe nodule. Plan: - FU OP with PCP for further workup. O Ovarian mass, r/o teratoma - Incidental finding on 01/15 CT scan: 3.2.8 x 3.0 cm heterogenous mass within the left ovary containing areas of fat density and multiple calcified foci. Plan: - will refer to gynecology. O Hx of elevated ICP : resolved. - Symptom onset during admission, 10/07/23. LP at the time revealed elevated impending pressure, butmeningitis w/u was unrevealing. - Concerns for IIH previously. - resolved as of 10/2023. - CTM Code: Full. Diet: Neutropenic, high fiber diet. Electrolytes: Replete PRN PPx: Contraindicated. Access: Port , PIV. Dispo: Medicine. The above assessment and plan will be discussed with the attending. This note is not final until attested by attending physician. Johanne Cruz MD Neurology Resident [facility] 01/21/2024 7:17 AM Associated attestation - Kate Price DO - 01/21/2024 5:03 PM CDT I have seen and examined the patient with the resident and I agree with the findings and plan of care as documented by the resident. In addition: Improved pain control with PO valium, continue TID PRN. Appreciate colorectal recommendations. Continue filgrastim per hematology. Remains on abx. No fevers or transfusion needs overnight. Date of Service: 01/21/2024 Kate Price DO * Valentín Mckeon RN - 01/21/2024 1:17 AM CDT Problem: Pain/Discomfort Goal: Patient exhibits reduced pain/discomfort as evidenced by pain scores Outcome: Progressing Problem: Pain/Discomfort Goal: Patient uses pharmacological and non-pharmacological pain management strategies. Outcome: Progressing Problem: Pain/Discomfort Goal: Patient verbalizes acceptable level of pain relief and ability to engage in desired activity. Outcome: Progressing * Ce Stafford RN - 01/20/2024 5:49 PM CDT Problem: Pain/Discomfort Goal: Patient exhibits reduced pain/discomfort as evidenced by pain scores Outcome: Progressing Goal: Patient uses pharmacological and non-pharmacological pain management strategies. Outcome: Progressing Goal: Patient verbalizes acceptable level of pain relief and ability to engage in desired activity. Outcome: Progressing * Justin Moon RN - 01/20/2024 2:39 PM CDT Care Coordination Initial Assessment Anticipated Discharge Date: 01/22/24 Transportation at Discharge: Family Anticipated level of care at discharge: Home Anticipated level of care provider: None Prior to admission level of care: Home Prior to admit provider: None Patient Goals: Safe return home Plans: Discharge needs identified. See progress notes for details. Case Management to follow for discharge planning. Comments: 38-year-old female with history of AML diagnosed in August 2023 in remission s/p induction chemotherapy followed by 4 cycles HiDAC now with ongoing neutropenia, recently diagnosed right segmental PE and 4-day history of sharp/tearing perianal pain associated with perirectal fat stranding on CT imaging. Patient was admitted form Hem/Onc clinic for PE workup including CTPE Evaluation. Additionally, forIV antibiotics and surgical evaluation for oziel- anal infection in the setting of neutropenia. Lives with: Daughter;Significant Other Physical Limitations: None Requires Assistance With: None Preferred Pharmacy: [id number] - [address] [facility] [address] [address] [id number] PCP: Nilam Mayers MD. Payer/Plan Subscriber Name Rel Member # Group # [employer] * SELVIN MCKEON Self [id number] [address] Home Address: [address] [address] Advance Directive: No Advance Directive Would you like assistance on completing and executing or revising an Advance Directive?: No READMISSION RISK SCORE is 21 at 2:41 PM 01/20/2024. Chart reviewed. Family Support (name and phone): Extended Emergency Contact Information Primary Emergency Contact: tonia fernández Mobile Relation: Significant other Secondary Emergency Contact: French Rosenthal Mobile Relation: Friend Typing Pool Supervisor needed? No Patient or patient services representative requests care coordination reach out to family or caregiver listed above regarding discharge planning and at time of discharge? No Patient/Family provided with list of resources? No Preferred Provider / High Quality Network List given?: No Reason for provider choice: Pt. choice - Physician driven Equipment at Home: None List DME pt. requires but does not have.: None Marketing Information Coordinator Referral: No Will continue to follow. For any questions or needs please contact: Supervisor Shuttle Fitting Name/Phone number: Justin Moon RN * Johanne Cruz MD - 01/20/2024 9:51 AM CDT [facility] INTERNAL MEDICINE PROGRESS NOTE Patient: Selvin Mckeon Sex: female Age: [age] year old Date of : 1985 Date of Admission: 01/19/2024 Date: 01/20/2024 LOS: 1 SUBJECTIVE Interval History: Still has severe anal pain. No bowel movement. Throat pain. Hospital Course: Please refer for H&P for detailed presenting history. Ms. Mckeon is a 38 year old lady with PMHx of AML in remission, neutropenic. Presented from hem/oncclinic for anal pain (anal fissure suspected) with concern of fat stranding in CT A/P and incidental findings of PE, no evidence of DVT in US duplex. CT PE No evidence of central pulmonary embolism. Evaluation of segmental and subsegmental pulmonary arteries is degraded by suboptimal contrast opacification. CT pelvis There is redemonstrated pararectal fat stranding adjacent to the rectum,right greater than left, not significantly changed compared to prior. Requiring transfusion to achieve Hb >7 and Plt >30. ACS consulted with no acute intervention, pending CRS evaluation. OBJECTIVE Vital Signs: Vitals: 01/20/24 0826 01/20/24 0847 01/20/24 0914 01/20/24 0947 BP: 110/78 145/88 107/96 125/90 Pulse: (!) 120 (!) 130 (!) 126 (!) 117 Resp: 16 16 16 16 Temp: 97.6 ??F (36.4 ??C) 98 ??F (36.7 ??C) 97.5 ??F (36.4 ??C) 98.4 ??F (36.9 ??C) SpO2: 97% 100% 95% 100% Weight: Height: Temp Min: 97.5 ??F (36.4 ??C) Max: 98.6 ??F (37 ??C), Pulse Min: 67 Max: 133, Resp Min: 16 Max: 20,BP Min: 99/62 Max: 145/82 Intake & Output: In: 7.4 [P.O.:750; I.V.:1317.4] Out: 1000 [Urine:1000] Physical Exam: Gen: Alert, cooperative, no distress Head: Normocephalic, without obvious abnormality, atraumatic Eyes: Conjunctivae/corneas clear, EOMI Nose: Mucosa normal. No drainage. Throat: Moist mucous membranes Neck: No JVD, no carotid bruit, trachea midline Back: Symmetric, no curvature Resp: CTAB, no wheezes/crackles CV: RRR, S1S2, No M/R/G Abd: S/NT/ND, BS+, no bruits , ASHLEY not possible due to neutropenia and pain. Ext: No clubbing, cyanosis, edema; no skin changes consistent with venous stasis or arterial disease Pulses: 2+ DP B Skin: Skin color, texture, turgor normal. No rashes or lesions Neuro: No focal deficits Current Medications: Scheduled: ??? 0.9% NaCl 3 mL Intracatheter q8h ??? cefepime 2 g Intravenous q8h ??? iopamidol Intravenous Contrast - Once ??? metroNIDAZOLE 500 mg Oral q8h ??? polyethylene glycol 3350 17 g Oral QDAY ??? posaconazole 300 mg Oral QDAY WITH DINNER ??? valACYclovir 500 mg Oral BID Continuous: PRN: ??? 0.9% NaCl ??? 0.9% NaCl ??? SALINE LOCK, INSERT AND MAINTAIN AND 0.9% NaCl AND 0.9% NaCl ??? diphenhydrAMINE ??? morphine ??? oxyCODONE (immediate release) Significant Lab Results: ANC 600. Hb 6.4 and Plt 22. Microbiology: Blood culture 01/18: in process. Imaging & Studies: Reviewed. ASSESSMENT & PLAN 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sion (HCC) (POA: Unknown) Ms. Mckeon is a 38 year old lady with history of AML on remission presenting with worsening anal pain and concern for infection. Also has incidental PE on imaging without evidence for DVT. ?? O Anal pain: - Patient had similar complain in 12/17/23 with no concern on exam per chart review in the clinic, resolved spontaneously. - 01/16/24: Anal pain recurred and significantly and rapidly progressed with lack of response to oralABx (Flagyl 500 TID, Levaquin 750 OD). - CT abd/pelvis 01/16/24: with contrast showing perirectal fat stranding without associated fluid collections or abnormality of the rectum which likely represents infection/inflammation. - CT pelvis/Abdomen 01/17: no change in previous findings. - Home pain medications for current pain: Oxycodone 5 mg PO QD and ??calmoseptine, which did not help. - Lack of response to oral Abx started 01/15: Flagyl 500 TID and Levaquin 750 OD. - ACS consulted, requested CRS consult and they are following. Plan: - Morphine injection 2mg OD PRN, Oxycodone 2.5 mg Q4h PRN. - Patient is neutropenic, rectal exam impossible until ANC>500. - IV cefepime ( 2g OD) and Flagyl (500 Q 8 h) (EOT TBD), clinical evaluation daily. - FU blood culture results: NGTD. - CRS recommendations: > Daily bowel regimen (Miralax, senna, colace) > Adequate fiber (25-35g daily) and water (at least 64 ounces) intake daily > Trial of PO valium (5mg TID prn) for perianal pain control for 1 day and will evaluate response. O AML: O Neutropenia: - Diagnosed in 08/2023. - Under remission, neutropenic. - Follow up with Hem/Onc in clinic. - Last blood transfusion and Plt 01/19/24. - Has intermittent vaginal bleeding and nose bleed. - PPx: valacyclovir 500 BID, Levaquin 500 OD, Posaconazole 300 daily. Plan: - Continue PPx Posaconazole and Valacyclovir, holding Levaquin as she is taking cefepime. - Please avoid any topical therapy for the anal fissure. - Started on Granix SC 3 times daily on 01/20/24. O Transfusion paramaters: - Hb target > 7 and Plt > 30. - Last transfusion 01/19 for Hb 6.4 > 8.2 post transfusion. - Plt target > 30, last transfusion AM for count of 22. O PE concern: - Incidental finding in CT AP on 01/15. - No symptoms. - BUE and CARLO US no DVT. - CT PE ordered 01/18: no filling defect seen and evaluation of segmental and subsegmental parts is suboptimal. Plan: - Contraindicated for AC due to low PLT and HB. ?? O Vaginal Bleeding: no active bleeding -??Medroxyprogesterone??pill discontinued 10/17 concern for IIH. -Confirmed with patient that she is not taking it.?? Plan: - CTM - Next medroxyprogesterone injection planned for 02/06/24. ?? Non active problems: ?? O Thyroid nodule: - TSH 12/06 Normal. - Incidental findings on CT, 0.7 left lobe nodule. Plan: - FU OP with PCP for further workup. O Ovarian mass, r/o teratoma - Incidental finding on 01/15 CT scan: 3.2.8 x 3.0 cm heterogenous mass within the left ovary containing areas of fat density and multiple calcified foci. Plan: - will refer to gynecology. ?? O Hx of elevated ICP : resolved. - Symptom onset during admission, 10/07/23. LP at the time revealed elevated impending pressure, butmeningitis w/u was unrevealing. - Concerns for IIH previously. - resolved as of 10/2023. - CTM ?? Code: Full. Diet: NPO. Electrolytes: Replete PRN PPx: Contraindicated. Access: Port , PIV. Dispo: Admit to Medicine. The above assessment and plan will be discussed with the attending. This note is not final until attested by attending physician. Johanne Cruz MD Neurology Resident [facility] 01/20/2024 9:52 AM Associated attestation - Kate Price DO - 01/20/2024 9:32 PM CDT I have reviewed the findings and plan of care as documented by the resident. In addition: See my separate attestation from H&P. Date of Service: 01/20/2024 Kate Price DO * Ebenezer Elkins RN - 01/19/2024 6:43 PM CDT Problem: Pain/Discomfort Goal: Patient exhibits reduced pain/discomfort as evidenced by pain scores Outcome: Progressing Goal: Patient uses pharmacological and non-pharmacological pain management strategies. Outcome: Progressing Goal: Patient verbalizes acceptable level of pain relief and ability to engage in desired activity. Outcome: Progressing * Neftali Burden PharmD - 01/19/2024 5:16 PM CDT ACTIVE CONSULTS TO PHARMACY/DISEASE STATE MONITORING Pharmacy Consult: Vancomycin Note: The latest IDSA/SIDP guideline for vancomycin therapeutic monitoring recommend monitoring thearea under the serum concentration vs. time curve for 0- 24 hours (AUC24) as the preferred therapeutic target for suspected/confirmed MRSA infections. The goal AUC 400-600 mg/L/hr has been shown to decrease overall drug exposure minimizing the risk of acute kidney injury without compromising clinical outcomes. Trough guided therapy and serial random level assessment is still appropriate in some patient populations. REF: https://www.idsociety.org/practice-guideline/vancomycin/ ASSESSMENT/PLAN Indication: documented Intra-abdominal with Goal Level: AUC 400-600 Assessment Microbiology: Recent Labs Component Name 09/22/23 1822 MRSADPCR Not detected History/current positive cultures for MRSA: No Other pertinent micro: n/a Renal: Recent Labs Component Name 01/19/24 0921 01/16/24 1028 01/14/24 1036 01/12/24 1022 CREATININE 0.66 0.63 0.67 0.58 BUN 10 8 13 11 Considered stable at this time as patient has Estimated Creatinine Clearance: 135.6 mL/min (by C-G formula based on SCr of 0.66 mg/dL). Historical dosing data that influences current dosing decisions: No Plan Regimen: Loading dose: 2500 mg Maintenance dose: 1250 mg, Dosing interval: Q8 hr This regimen calculates to provide estimated AUC of 454 mg-h/L Monitoring Will order a vancomycin peak level after maintenance dose on 01/20 at 0500 and trough level prior to maintenance dose on 01/20 at 0900 and adjust regimen if indicated. Continue to monitor patient???s renal function and cultures as needed. Neftali Burden PharmD 01/19/2024 5:04 PM [facility] Vancomycin Guideline SUBJECTIVE/OBJECTIVE Selvin Mckeon is a 38 year old female Height: 5' 2 (157.5 cm) Wt 108.9 kg (240 lb 1.6 oz) Body mass index is 43.91 kg/m??. Dialysis Orders (72h ago, onward) None Radiocontrast within 72 hours The 3 most recent administrations since 01/16/2024 are shown below each listed medication. Other Order Route Dose Action Date iopamidol (Isovue 370) 76 % contrast Intravenous 100 mL $ Given - Contrast 01/16/2024 Vancomycin Administrations from MAR (last 72 hours) None Recent Labs Component Name 09/23/23 0209 09/22/23 2221 VANCTROUGH 11.0 - VANCOPEAK - 28.4 documented in this encounter H&P Notes * Johanne Cruz MD - 01/19/2024 4:35 PM CDT [facility] INTERNAL MEDICINE HISTORY & PHYSICAL NOTE Date of Admission: 01/19/2024 Patient: Selvin Mckeon Sex: female Age: [age] year old Date of : 1985 Code Status: Prior SUBJECTIVE Chief Complaint: Anal pain. History of Present Illness: Ms. 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 Patient presented to clinic on 01/15 with oziel-anal pain, CT A/P perirectal fat stranding without associated fluid collections or abnormality of the rectum which likely represents infection/inflammation. CT showed incidental central filling defect within a segmental branch of the right pulmonary artery which may represent an acute pulmonary embolism. BUE and BLE dopplers on 01/15 were negative for any deep vein thrombosis. She was started on treatment dose of Levaquin 750 mg QD + Falgyl 500 mg TID on 01/15.She was also prescribed oxycodone 5 mg prn for pain. However, perianal pain has significantly worsened (10/10), not able to sit due to pain. Denies any fever, chills, rectal bleeding or any perianal drainage.Last BM 01/16 (hard stool), no chronic constipation or previous similar complain.Had blood spotting but she has Irregular menstural cycle as she uses Medroxyprogestron q3m for control. Patient was admitted form Hem/Onc clinic for PE workup including CTPE Evaluation. Additionally, forIV antibiotics and surgical evaluation for oziel- anal infection in the setting of neutropenia. Patient required 1 unit of RBCs and one unit of platelet prior to admission. Past Medical History: Past Medical History: Diagnosis Date ??? NEGATIVE PAST MEDICAL HISTORY - SEE PROBLEM LIST Past Surgical History: Past Surgical History: Procedure Laterality Date ??? Section ??? Cholecystectomy ??? KIDNEY STONES, REMOVAL Family History: Family History Family history unknown: Yes Social History: Social History Socioeconomic History ??? Marital status: Spouse name: Not on file ??? Number of children: Not on file ??? Years of education: Not on file ??? Highest education level: Not on file Occupational History ??? Not on file Tobacco Use ??? Smoking status: Former Packs/day: 1 Types: Cigarettes Start date: 2004 Quit date: 2010 Years since quittin.3 ??? Smokeless tobacco: Never Vaping Use ??? Vaping Use: Never used Substance and Sexual Activity ??? Alcohol use: Yes Comment: occasional ??? Drug use: Never ??? Sexual activity: Yes Other Topics Concern ??? Not on file Social History Narrative ??? Not on file Social Determinants of Health Financial Resource Strain: Low Risk (12/30/2023) Overall Financial Resource Strain (CARDIA) ??? Difficulty of Paying Living Expenses: Not hard at all Food Insecurity: No Food Insecurity (12/30/2023) Hunger Vital Sign ??? Worried About Running Out of Food in the Last Year: Never true ??? Ran Out of Food in the Last Year: Never true Transportation Needs: No Transportation Needs (12/30/2023) PRAPARE - Transportation ??? Lack of Transportation (Medical): No ??? Lack of Transportation (Non-Medical): No Stress: No Stress Concern Present (12/30/2023) [employer] [place] [employer] - Occupational Stress Questionnaire ??? Feeling of Stress : Not at all Recent Concern: Stress - Stress Concern Present (11/03/2023) [employer] [place] [employer] - Occupational Stress Questionnaire ??? Feeling of Stress : To some extent Housing Stability: High Risk (12/30/2023) Housing Stability Vital Sign ??? Unable to Pay for Housing in the Last Year: No ??? Number of Places Lived in the Last Year: 1 ??? Unstable Housing in the Last Year: Yes Allergies: No Known Allergies Home Medications: Current Facility-Administered Medications on File Prior to Encounter Medication Dose Route Frequency Provider Last Rate Last Admin ??? 0.9% NaCl infusion rate and volume 250 mL Intravenous Once PRN Lama, Rossana, ARBORICULTURIST-SUBSTATION OPERATOR AUTOMATIC ??? [COMPLETED] cefepime (Maxipime) 2,000 mg in 0.9% NaCl IV 50 mL IVPB 2 g Intravenous Once LamaRossana APRN-SUBSTATION OPERATOR AUTOMATIC Stopped at 01/19/24 1151 ??? [COMPLETED] metroNIDAZOLE (Flagyl) 500 mg in 100 mL IVPB 500 mg Intravenous Once LamaRossana ARBORICULTURIST-SUBSTATION OPERATOR AUTOMATIC Stopped at 01/19/24 1222 ??? [COMPLETED] morphine injection 2 mg 2 mg Intravenous Once Hussain Carias MD 2 mg at 01/19/24 1018 ??? [COMPLETED] morphine injection 2 mg 2 mg Intravenous Once Hussain Carias MD 2 mg at 01/19/24 1343 ??? [COMPLETED] ondansetron (Zofran) injection 4 mg 4 mg Intravenous Once LamaRossana APRN-SUBSTATION OPERATOR AUTOMATIC 4 mg at 01/19/24 1030 Current Outpatient Medications on File Prior to Encounter Medication Sig Dispense Refill ??? Carboxymethylcellulose Sodium (ARTIFICIAL TEARS OP) ??? famotidine (Pepcid) 20 MG tablet Take 1 (one) tablet by mouth 2 times daily 60 tablet 1 ??? levoFLOXacin (Levaquin) 500 MG tablet Take 1 (one) tablet by mouth once daily 30 tablet 1 ??? medroxyPROGESTERone (Depo-Provera) 150 MG/ML vial Inject 1 mL into muscle every 84 days ??? menthol-zinc oxide (Calmoseptine) 0.44-20.6 % ointment Apply to affected area 3 times daily as needed for Other (Apply to perirectal area TID as needed for rectal pain) 113 g 0 ??? metroNIDAZOLE (Flagyl) 500 MG tablet Take 1 (one) tablet by mouth every 8 hours 15 tablet 0 ??? ondansetron (Zofran) 8 MG tablet Take one tablet by mouth twice a day 1 hour before midostaurinon days 8 to 21 and one tablet every 12 hours as needed for breakthrough nausea/vomiting. Reasons: Nausea and Vomiting caused by Cancer Chemotherapy (Patient not taking: Reported on 01/07/2024) 100 tablet 11 ??? oxyCODONE, immediate release, (Roxicodone) 5 MG tablet Take 1 (one) tablet by mouth every 6 hours as needed for Pain 12 tablet 0 ??? oxyCODONE, immediate release, (Roxicodone) 5 MG tablet Take 1 (one) tablet by mouth every 6 hours as needed for Pain 10 tablet 0 ??? posaconazole (Noxafil) 100 MG tablet Take 3 (three) tablets by mouth daily with dinner 90 tablet 5 ??? potassium chloride ER 10 MEQ tablet Take 2 (two) tablets by mouth once daily 30 tablet 3 ??? prochlorperazine (Compazine) 10 MG tablet Take 1 (one) tablet by mouth every 8 hours as needed for Nausea/Vomiting (Patient not taking: Reported on 12/30/2023) ??? valACYclovir (Valtrex) 500 MG tablet Take 1 (one) tablet by mouth 2 times daily 60 tablet 11 ??? Witch Jaclyn (Hemorrhoidal Hygiene) 50 % 1 Pad by Apply externally route as needed 100 Each 1 Current Medications: Scheduled: Continuous: No current facility-administered medications for this encounter. PRN: Review of Systems: Review of Systems Constitutional: Negative for chills, fever, malaise/fatigue and weight loss. HENT: Positive for nosebleeds. Negative for sore throat. Intermittent nose bleed over the weekend per pt. Eyes: Negative for blurred vision and double vision. Respiratory: Negative for cough and shortness of breath. Cardiovascular: Negative for chest pain. Gastrointestinal: Negative for abdominal pain, blood in stool, constipation, diarrhea, melena, nausea and vomiting. + for oziel-anal pain Genitourinary: Negative for dysuria, frequency, hematuria and urgency.Intermittent and infrequent vaginal spotting Musculoskeletal: Negative for back pain and myalgias. Skin: Negative for rash. Neurological: Negative for dizziness, tingling and headaches. Endo/Heme/Allergies: Bruises/bleeds easily. OBJECTIVE Vital Signs: Temp: [98.1 ??F (36.7 ??C)-98.6 ??F (37 ??C)] 98.4 ??F (36.9 ??C) Pulse: [67-133] 128 Resp: [18-20] 18 BP: (119-145)/(82-99) 119/99 Physical Exam: Gen: Alert, cooperative, no distress Head: Normocephalic, without obvious abnormality, atraumatic Eyes: Conjunctivae/corneas clear, EOMI Nose: Mucosa normal. No drainage. Throat: Moist mucous membranes Neck: No JVD, no carotid bruit, trachea midline Back: Symmetric, no curvature Resp: CTAB, no wheezes/crackles CV: Tachycardiac. Abd: Distended, present bowel sounds. Ext: No clubbing, cyanosis, edema; no skin changes consistent with venous stasis or arterial disease Pulses: 2+ DP B Skin: Skin color, texture, turgor normal. No rashes or lesions Neuro: No focal deficits Lab Results: CBC: Recent Labs Component Name 01/19/2492001/16/24102701/14/24 1036 12/30/23203412/30/23 1104 WBC 0.4* 0.2* 0.2* - - HGB 6.7* 7.4* 7.9* - - HCT 18.6* 20.4* 21.6* - - MCV 77.8* 77.6* 78.0* - - PLT - - - - 34* - = values in this interval not displayed. Coagulation Panel: Recent Labs Component Name 09/13/23205109/12/23204509/11/232001 PT 13.1 13.6 14.4 INR 1.0 1.1 1.2 PTT 23.2 20.9* 21.9* BMP: Recent Labs Component Name 01/19/2492001/16/24102701/14/24 1036 NA 136 141 140 POTASSIUM 4.0 3.8 3.8 CL 106 111* 110* CO2 20* 19* 21* BUN 10 8 13 CREATININE 0.66 0.63 0.67 CALCIUM 9.8 9.7 10.2 Recent Labs Component Name 01/19/2492001/16/24102701/14/24 1036 MAGNESIUM 1.8 1.8 1.9 Recent Labs Component Name 01/19/24 0901/16/248 01/14/24 1036 PHOS 2.6* 3.2 4.0 Hepatic Panel: Recent Labs Component Name 01/19/2492001/16/24102701/14/24 1036 AST 9 11 11 ALT 14 21 21 ALKPHOS 69 82 83 TBILI 0.5 0.5 0.5 ALB 3.2* 3.5 3.6 ABG: Recent Labs Component Name 10/09/23 0604 09/25/23 0014 PH 7.36 7.45 PCO2 - 25* PO2 - 94 Amylase/Lipase: Invalid input(s): AMYL , LIPA Thyroid Studies: Recent Labs Component Name 11/28/23 0837 TSH 1.840 Cardiac Enzymes: No results for input(s): CKTOTAL , CKMB , TROPONINI in the last 86536 hours. Invalid input(s): CKMBINDEX Lipid Panel: No results for input(s): LDLCALC , HDL in the last 85483 hours. Microbiology: Blood culture 01/18 in process. Imaging & Studies: CTPE ordered. CT P/V ordered. ASSESSMENT & PLAN 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sion (HCC) (POA: Unknown) Ms. Mckeon is a 38 year old lady with history of AML on remission presenting with worsening anal pain and concern for infection. Also has incidental PE on imaging without evidence for DVT. O Anal pain: - Patient had similar complain in 12/17/23 with no concern on exam per chart review in the clinic, resolved spontaneously. - 01/16/24: Anal pain recurred and significantly and rapidly progressed with lack of response to oralABx (Flagyl 500 TID, Levaquin 750 OD). - CT abd/pelvis 01/16/24: with contrast showing perirectal fat stranding without associated fluid collections or abnormality of the rectum which likely represents infection/inflammation. - Home pain medications for current pain: Oxycodone 5 mg PO QD and calmoseptine, which did not help. - Lack of response to oral Abx started 01/15: Flagyl 500 TID and Levaquin 750 OD. Plan: - Morphine injection 2mg OD PRN. - Patient is neutropenic, rectal exam impossible until ANC>500. - IV cefepime ( 2g OD) and Flagyl (500 Q 8 h). - CT pelvis/Abdomen 01/17. - ACS consulted. - FU blood culture results. O PE: - Incidental finding in CT AP on 01/15. - No symptoms. - BUE and CARLO US no DVT. Plan: - CT PE ordered 01/18. - Contraindicated for AC due to low PLT and HB. O AML: O Neutropenia: - Diagnosed in 08/2023. - Under remission, neutropenic. - Follow up with Hem/Onc in clinic. - Last blood transfusion and Plt 01/19/24. - Has intermittent vaginal bleeding and nose bleed. - PPx: valacyclovir 500 BID, Levaquin 500 OD, Posaconazole 300 daily. Plan: - CBC stat and transfuse if needed to achieve Hb > 7 and PLT > 30. O Vaginal Bleeding: -??Medroxyprogesterone??pill discontinued 10/17 concern for IIH. -Confirmed with patient that she is not taking it.?? Plan: - CTM - Next medroxyprogesterone injection planned for 02/06/24. Non active problems: O Ovarian mass, r/o teratoma - Incidental finding on 01/15 CT scan: 3.2.8 x 3.0 cm heterogenous mass within the left ovary containing areas of fat density and multiple calcified foci. Plan: - will refer to gynecology. O Hx of elevated ICP : resolved. - Symptom onset during admission, 10/07/23. LP at the time revealed elevated impending pressure, butmeningitis w/u was unrevealing. - Concerns for IIH previously. - resolved as of 10/2023. - CTM Code: Full. Diet: NPO. Electrolytes: Replete PRN PPx: Contraindicated. Access: Port , PIV. Dispo: Admit to Medicine. The above assessment and plan will be discussed with the attending. This note is not final until attested by attending physician. Johanne Cruz MD Neurology Resident [facility] - [facility] 01/19/2024 4:36 PM Associated attestation - Kate Price DO - 01/20/2024 9:28 PM CDT I have seen and examined the patient with the resident and I agree with the findings and plan of care as documented by the resident. In addition: 38 yo F with PMH of AML presenting with rectal pain of one week duration. Outpatient imaging showed perirectal fat stranding, potential infection. Possible PE seen as well. Repeat imaging, start abx and consult colorectal surgery. Improve pain control but avoid constipation. Appreciate hematology, ACS and colorectal involvement in care. Active Problem List Pancytopenia due to chemotherapy (HCC) (POA: Yes) Tachycardia (POA: Yes) 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sion (HCC) (POA: Yes) Anal or rectal pain (POA: Yes) Date of Service: 01/20/2024 Kate Price DO documented in this encounter Consult Notes * Lizzie Escudero MD - 01/20/2024 9:52 AM CDTAssociated Order(s): IP CONSULT TO COLORECTAL SURGERY Images from the original note were not included. COLORECTAL SURGERY CONSULT NOTE Patient Name: Selvin Mckeon Age/Gender: 38 year old female : 1985 Date: 01/20/2024 Reason for Consult: Perianal pain, perirectal fat stranding HPI: Selvin Mckeon is a 38-year-old female with history of AML diagnosed in August 2023 in remission s/p induction chemotherapy followed by 4 cycles HiDAC now with ongoing neutropenia, recently diagnosed right segmental PE and 4-day history of sharp/tearing perianal pain associated with perirectal fat stranding on CT imaging. Patient states she has regular constipation with hard stools every other day that require significant straining. She has never taken stool softeners or laxatives. She denies blood or purulence per rectum. She describes her perianal pain as constant though aggravated by bowel movements and sitting for prolonged periods of time. Denies personal or family history of an al/colorectal cancers and inflammatory bowel disease. She has never been diagnosed with a sexually transmitted illness. State she has history of anoreceptive intercourse but none since July 2023. Patient currently on cefepime and flagyl with no reported improvement in pain over the past 2 days.She has been afebrile with ongoing tachycardia (HR 100- 130s) since hospital admission on 01/19/24. Labs notable for WBC count 0.7 (ANC 0.06). CT yesterday evening showed the aforementioned perirectal fat stranding without an associated fluid collection. Past Medical History: Diagnosis Date NEGATIVE PAST MEDICAL HISTORY - SEE PROBLEM LIST Past Surgical History: Procedure Laterality Date Section Cholecystectomy KIDNEY STONES, REMOVAL Allergies Allergen Reactions Vancomycin Itching Outpatient Medications: acetaZOLAMIDE (Diamox) 250 MG tablet Carboxymethylcellulose Sodium (ARTIFICIAL TEARS OP) famotidine (Pepcid) 20 MG tablet levoFLOXacin (Levaquin) 500 MG tablet medroxyPROGESTERone (Depo-Provera) 150 MG/ML vial menthol-zinc oxide (Calmoseptine) 0.44-20.6 % ointment metroNIDAZOLE (Flagyl) 500 MG tablet ondansetron (Zofran) 8 MG tablet oxyCODONE, immediate release, (Roxicodone) 5 MG tablet oxyCODONE, immediate release, (Roxicodone) 5 MG tablet posaconazole (Noxafil) 100 MG tablet potassium chloride ER 10 MEQ tablet prochlorperazine (Compazine) 10 MG tablet valACYclovir (Valtrex) 500 MG tablet Witch Jaclyn (Hemorrhoidal Hygiene) 50 % Inpatient Medications: Current Facility-Administered Medications Medication 0.9% NaCl infusion rate and volume 0.9% NaCl infusion rate and volume 0.9% NaCl injection 3 mL And 0.9% NaCl injection 1-10 mL cefepime (Maxipime) 2,000 mg in 0.9% NaCl IV 50 mL IVPB diphenhydrAMINE (Benadryl) capsule 50 mg iopamidol (Isovue 370) 76 % contrast metroNIDAZOLE (Flagyl) tablet 500 mg morphine injection 2 mg oxyCODONE (immediate release) (Roxicodone) tablet 5 mg polyethylene glycol 3350 (Miralax) packet 17 g posaconazole (Noxafil) tablet 300 mg valACYclovir (Valtrex) tablet 500 mg Social History Tobacco Use Smoking status: Former Packs/day: 1 Types: Cigarettes Start date: 2004 Quit date: 2010 Years since quittin.3 Smokeless tobacco: Never Vaping Use Vaping Use: Never used Substance Use Topics Alcohol use: Yes Comment: occasional Drug use: Never Family History Family history unknown: Yes Problem List/Present on Admission: 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sion (HCC) (POA: Unknown) REVIEW OF SYSTEMS Constitutional: As per HPI Eyes: Negative for visual changes CV: Negative for chest pain Pulm: Negative for dyspnea GI: As per HPI : Negative for dysuria, hematuria MSK: Negative for myalgias, arthralgias Skin: Negative for skin changes Neuro: Negative for weakness Remainder of ROS negative unless documented in HPI PHYSICAL EXAM Vitals: 01/20/24 0826 01/20/24 0847 01/20/24 0914 01/20/24 0947 BP: 110/78 145/88 107/96 125/90 Pulse: (!) 120 (!) 130 (!) 126 (!) 117 Resp: 16 16 16 16 Temp: 97.6 ??F (36.4 ??C) 98 ??F (36.7 ??C) 97.5 ??F (36.4 ??C) 98.4 ??F (36.9 ??C) SpO2: 97% 100% 95% 100% Weight: Height: Estimated body mass index is 43.91 kg/m?? as calculated from the following: Height as of this encounter: 1.575 m (5' 2 ). Weight as of this encounter: 108.9 kg (240 lb 1.6 oz). Gen: NAD HEENT: AT/NC, EOMI, oropharynx clear CV: RRR Pulm: Unlabored respirations Abd: Soft, non-distended, non-tender Anorectal: exam limited due to pain. On inspection there appears to be a fissure near the posteriormidline, no surrounding erythema/swelling. No prolapsed hemorrhoids or perianal lesions otherwise. ASHLEY deferred due to neutropenia MSK: WWP, no c/c/e Neuro: Moving all extremities, no focal deficits Psych: Appropriate mood and affect Recent Labs: CBC: Recent Labs Component Name 01/20/24 0337 12/30/23203412/30/23 1104 WBC 0.7* - - HGB 6.4* - - HCT 17.6* - - PLT - - 34* - = values in this interval not displayed. BMP: Recent Labs Component Name 01/20/24 0337 NA 137 CL 107 CO2 21* BUN 8 CREATININE 0.64 Recent Labs Component Name 09/13/232051 PT 13.1 PTT 23.2 INR 1.0 Imaging: CT CHEST PE W ABD PELVIS W [...] colitis. > Dictated by Partha Ryan MD (president consumer electronics company). I, Feliciano Ordaz MD have personally reviewed [...] verification. > Dictated by Jeremy Valdes MD (president consumer electronics company). > Dictatedby Jeremy Valdes MD (Vice Chairman) 01/16/2024 2:09 PM IArlyn MD have personally reviewed and interpreted this examination/study. > Interpreting Provider: Arlyn Gannon MD on 01/16/2024 4:49 PM Assessment and Plan: Selvin Mckeon is a 38-year-old female with history of AML diagnosed in August 2023 in remission s/p chemotherapy now with ongoing neutropenia and 4-day history of sharp/tearing perianal pain associated with perirectal fat stranding on CT imaging. Based on clinical history and limited anorectal exam, patient likely has anal fissure with reactive proctitis proximally. Due to neutropenia, would defer any intra-anal treatments and/or exam under anesthesia at this time. Recommend daily bowel regimen (colace, Miralax, senna) in order to avoid hard stools and straining with bowel movements. Additionally recommend adequate fiber (25-35g daily) and water intake (at least 64 ounces per day) as well as valium for perianal pain relief. Pending an improvement of ANC, would consider complete anorectal examination and topical nifedipine treatment if indicated. - No acute colorectal surgical intervention indicated at this time - Recommend daily bowel regimen (Miralax, senna, colace) - Recommend adequate fiber (25-35g daily) and water (at least 64 ounces) intake daily - Recommend trial of PO valium (5mg TID prn) for perianal pain control - Colorectal Surgery will follow; please page with any questions/concerns Lucas Cervantes, DO General Surgery PGY-3 01/20/2024 9:52 AM Attending Physician Supervisory Note I personally interviewed and examined the patient and agree with the doctor above. May start nifedipine to anus when neutropenia resolved. I have verified the documentation of the resident, including all history, exam, and medical decision-making details. I have personally performed a physical exam and have personally reviewed all pertinent records available to me to support my medical decision-making as outlined in the resident???s note, and I arrive independently at the same conclusion. Lizzie Escudero MD * Velma Toney MD - 01/20/2024 8:37 AM CDT Images from the original note were not included. 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 Pt was seen inclinic on Monday 01/[address] abdomen which showed oziel-rectal fat stranding and given concernf or abscess was sent home with levoflox [address] abdomen also partially visualised a segemental PE ( incompletely characterised). Pt called Friday w/ worsening oziel- anal pain and was admitted for work up and IV AB. CTPE did not show any evidence of PE but contrast ws suboptimal. Pt saturating well on room air Pt was seen by Gen surg and no intervention recommended. Seen by CRS , who recommended high fibre ,stool softeners and water intake Review of Systems: As noted in HPI. All other systems reviewed and negative. Past Medical & Surgical History Patient Active Problem List Diagnosis ??? 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sion (HCC) ??? Tachycardia ??? Pseudotumor cerebri ??? Hypernatremia ??? Hypophosphatemia ??? Anemia ??? Vaginal bleeding ??? IIH (idiopathic intracranial hypertension) ??? Acute hypoxic respiratory failure (HCC) ??? Pulmonary edema (HCC) ??? Pancytopenia due to chemotherapy (HCC) ??? Tonsillitis ??? Acute myeloid leukemia in remission (HCC) Past Medical History: Diagnosis Date ??? NEGATIVE PAST MEDICAL HISTORY - SEE PROBLEM LIST Past Surgical History: Procedure Laterality Date ??? Section ??? Cholecystectomy ??? KIDNEY STONES, REMOVAL Past Oncology History Cancer Staging No matching staging information was found for the patient. Oncology History Acute myeloid leukemia in remission [...] (final anticipated cycle) Active Treatment Days for Selvin Mckeon (until 01/21/2024) 01/02/2024 ONCOLOGY TREATMENT: IP AML CONSOLIDATION - AGE <60 (HIGH DOSE CYTARABINE)(SANDHU HIDAC) Day 5, Cycle 4 (Started) Pre-Medications: ondansetron (Zofran) injection 8 mg, dexAMETHasone (Decadron) injection 8 mg Chemotherapy: cytarabine (Cytosar) 6,700 mg in 0.9% NaCl IV 597 mL infusion Social History Social History Tobacco Use ??? Smoking status: Former Packs/day: 1 Types: Cigarettes Start date: 2004 Quit date: 2010 Years since quittin.3 ??? Smokeless tobacco: Never Substance Use Topics ??? Alcohol use: Yes Comment: occasional Family History Family History Family history unknown: Yes Medications SCHEDULED MEDICATIONS: 0.9% NaCl injection 3 mL, Intracatheter, q8h cefepime (Maxipime) 2,000 mg in 0.9% NaCl IV 50 mL IVPB, Intravenous, q8h iopamidol (Isovue 370) 76 % contrast, Intravenous, Contrast - Once metroNIDAZOLE (Flagyl) tablet 500 mg, Oral, q8h polyethylene glycol 3350 (Miralax) packet 17 g, Oral, QDAY posaconazole (Noxafil) tablet 300 mg, Oral, QDAY WITH DINNER valACYclovir (Valtrex) tablet 500 mg, Oral, BID [COMPLETED] lactated ringers IV bolus, Intravenous, Once CONTINUOUS MEDICATIONS: PRN MEDICATIONS: 0.9% NaCl infusion rate and volume, Intravenous, Once PRN 0.9% NaCl infusion rate and volume, Intravenous, Once PRN 0.9% NaCl injection 1-10 mL, Intracatheter, PRN diphenhydrAMINE (Benadryl) capsule 50 mg, Oral, AT BEDTIME PRN morphine injection 2 mg, Intravenous, q4h PRN oxyCODONE (immediate release) (Roxicodone) tablet 5 mg, Oral, q4h PRN Allergies Allergies Allergen Reactions ??? Vancomycin Itching OBJECTIVE Physical Exam Vitals: 01/20/24 0027 01/20/24 0338 01/20/24 0737 01/20/24 0826 BP: 109/65 99/62 110/78 110/78 Pulse: 109 106 (!) 123 (!) 120 Resp: 18 18 18 16 Temp: 98 ??F (36.7 ??C) 98.4 ??F (36.9 ??C) 97.6 ??F (36.4 ??C) 97.6 ??F (36.4 ??C) SpO2: 100% 100% 100% 97% Weight: Height: Wt Readings from Last 3 Encounters: 01/19/24 108.9 kg (240 lb 1.6 oz) 01/19/24 108.9 kg (240 lb 1.6 oz) 01/16/24 109.3 kg (240 lb 14.4 oz) ECO General: Well-developed . No acute distress. Head: Normocephalic, atraumatic. Eyes: No scleral icterus. Conjunctivae clear. Ears: Normal external ears. Hearing intact to voice. Nose: Symmetric nose. No visible drainage. Throat: Moist mucous membranes. No visible mouth sores. Neck: Supple, trachea midline. Heart: Normal S1, S2. Regular rate and rhythm. Lungs: Symmetric breath sounds. Clear to auscultation. Nonlabored respirations. Abdomen: Soft, nontender, nondistended. Bowel sounds present. Lymph: No palpable cervical or supraclavicular lymphadenopathy. Extremities: No clubbing or edema. Musculoskeletal: No spinal tenderness or visible deformity. Ambulates without assistance. Skin: Warm, dry. No rash. Neurologic: Alert, oriented. No gross focal neurologic deficits. Psychiatric: Cooperative. Appropriate mood and affect. No ASHLEY as neutropenic Laboratory Results Recent Labs Component Name 01/20/24 0337 01/19/24 1713 01/19/24 1111 01/19/24 0921 01/07/24 1156 01/07/24 0855 01/03/24212701/02/24205101/01/24211712/31/232053 WBC 0.7* 0.6* - 0.4* - 0.5* - 2.9* 3.6* 5.1 RBC 2.23* 2.85* - 2.39* - 2.98* - 2.63* 2.80* 2.31* HGB 6.4* 8.2* - 6.7* - 8.3* - 7.4* 7.9* 6.6* HCT 17.6* 22.6* - 18.6* - 23.6* - 21.1* 22.4* 19.1* MCV 78.9* 79.3* - 77.8* - 79.2* - 80.2 80.0 82.7 MCHC 36.4* 36.3 - 36.0 - 35.2 - 35.1 35.3 34.6 PLTCOUNT 22* 38* 35* 10* - 3* - 25* 32* 41* NEUTPCT - - - - - - - 84.4* 87.5* 71.4 LYMPHPCT - - - - - - - 11.4* 7.2* 10.0* NEUTABS 0.06* 0.06* 0.05* 0.04* - - - 0.29* 0.26* - 2.44 3.14 3.66 LYMPHABS 0.42* 0.43* - - - 0.25* - 0.33* 0.26* 0.51* BASOABS - - - - - - - 0.00 0.00 0.00 - = values in this interval not displayed. Recent Labs Component Name 01/20/24 0337 01/19/24 1713 01/19/24 0921 01/16/24 1028 01/14/24 1036 POTASSIUM 3.7 3.8 4.0 3.8 3.8 CO2 21* 20* 20* 19* 21* BUN 8 11 10 8 13 CREATININE 0.64 0.70 0.66 0.63 0.67 EGFR >90 >90 >90 >90 >90 GLUCOSE 108 112 201* 181* 200* CALCIUM 9.3 10.0 9.8 9.7 10.2 MAGNESIUM 1.7 1.9 1.8 1.8 1.9 PHOS 4.4 3.4 2.6* 3.2 4.0 ALT - - 14 21 21 AST - - 9 11 11 ALKPHOS - - 69 82 83 Pathology Results Personally reviewed and summarized above in Hematology & Oncology History Radiology Results Personally reviewed and summarized above in Hematology & Oncology History CT CHEST PE W ABD PELVIS W [...] colitis. > Dictated by Partha Ryan MD (president [employer]). I, Feliciano Ordaz MD have personally reviewed [...] verification. > Dictated by Jeremy Valdes MD (president [employer]). > Dictatedby Jeremy Valdes MD (Vice Chairman) 01/16/2024 2:09 PM IArlyn MD have personally reviewed and interpreted this ex ASSESSMENT Selvin Mckeon is a 38 year old female with AML presenting with oziel-anal pain . 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 -Pt complaining of severe oziel-anal pain PLAN -Seen by gen surg and CRS, given that pt is neutropenic no topical treatment or ASHLEY was done -conservative management w/ pain control and stool softeners -On cefepime and metronidazole, vanc discontinued -daily CBC and CMP -Will add TBO filgastrim to help with neutropenia as pt is in CR. Until ANC >1000 x 3 days -initial concern for PE on 01/16/24 but no PE identified on imaging 01/19/24. Pt is saturating well onroom air - F/U blood cx drawn on admission , although pt HDS --Transfusion parameters: (Leukoreduced and irradiated blood products)pRBC to keep Hgb >7 if hemodynamically stable and no bleeding.PLT transfusion to keep PLT >10 K; but if bleeding, keep PLT >20K for minor bleeds and >50K for major bleeds, if possible. PLT >50K is adequate for mostinvasive procedures. PLT~100K is adequate for neurosurgical interventions. Fibrinogen > 100 Thank you for the opportunity to participate in the care of this patient. Hem/Onc consult service will continue to follow closely. Please don't hesitate to contact hem/onc consult fellow via the day light relief operator or AMION if any questions or clarifications. D/w Dr Nicole Toney MD, PGY-4 Hematology-Oncology Fellow [facility] Associated attestation - Abrahan Rivera MD - 01/20/2024 6:44 PM CDT I have seen and examined the patient with the fellow. I agree with the findings and plan of care asdocumented by the fellow. Date of fellow's note: 01/20/2024 Date of service: 01/20/2024 Abrahan Rivera MD * Baldemar Casper MD - 01/19/2024 11:32 PM CDTAssociated Order(s): IP CONSULT TO GENERAL SURGERY Images from the original note were not included. 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 Patient presented to hemon/onc clinic on 01/15 with oziel-anal pain, CT A/P perirectal fat stranding without associated fluid collections or abnormality of the rectum which likely represents infection/inflammation.??CT showed incidental central filling defect within a segmental branch of the right pulmonary arterywhich may represent an acute pulmonary embolism. ??BUE and BLE dopplers on 01/15 were negative for any deep vein thrombosis.?? Patient was admitted from [facility] clinic for management of her PE. ACS team was consulted to rule our a perirectal abscess vs perianal abscess. Patient denies any abdominal pain, however states she started having perianal pain after a period of constipation and hard stools. She is currently still neutropenic. Past Medical History: Diagnosis Date ??? NEGATIVE PAST MEDICAL HISTORY - SEE PROBLEM LIST Past Surgical History: Procedure Laterality Date ??? Section ??? Cholecystectomy ??? KIDNEY STONES, REMOVAL No Known Allergies Outpatient Medications: ??? acetaZOLAMIDE (Diamox) 250 MG tablet ??? Carboxymethylcellulose Sodium (ARTIFICIAL TEARS OP) ??? famotidine (Pepcid) 20 MG tablet ??? levoFLOXacin (Levaquin) 500 MG tablet ??? medroxyPROGESTERone (Depo-Provera) 150 MG/ML vial ??? menthol-zinc oxide (Calmoseptine) 0.44-20.6 % ointment ??? metroNIDAZOLE (Flagyl) 500 MG tablet ??? ondansetron (Zofran) 8 MG tablet ??? oxyCODONE, immediate release, (Roxicodone) 5 MG tablet ??? oxyCODONE, immediate release, (Roxicodone) 5 MG tablet ??? posaconazole (Noxafil) 100 MG tablet ??? potassium chloride ER 10 MEQ tablet ??? prochlorperazine (Compazine) 10 MG tablet ??? valACYclovir (Valtrex) 500 MG tablet ??? Shae Anaya (Hemorrhoidal Hygiene) 50 % Inpatient Medications: Current Facility-Administered Medications Medication ??? 0.9% NaCl injection 3 mL And ??? 0.9% NaCl injection 1-10 mL ??? cefepime (Maxipime) 2,000 mg in 0.9% NaCl IV 50 mL IVPB ??? diphenhydrAMINE (Benadryl) capsule 50 mg ??? iopamidol (Isovue 370) 76 % contrast ??? metroNIDAZOLE (Flagyl) tablet 500 mg ??? morphine injection 2 mg ??? oxyCODONE (immediate release) (Roxicodone) tablet 5 mg ??? polyethylene glycol 3350 (Miralax) packet 17 g ??? posaconazole (Noxafil) tablet 300 mg ??? valACYclovir (Valtrex) tablet 500 mg Facility-Administered Medications Ordered in Other Encounters Medication ??? 0.9% NaCl infusion rate and volume Social History Tobacco Use ??? Smoking status: Former Packs/day: 1 Types: Cigarettes Start date: 2004 Quit date: 2010 Years since quittin.3 ??? Smokeless tobacco: Never Vaping Use ??? Vaping Use: Never used Substance Use Topics ??? Alcohol use: Yes Comment: occasional ??? Drug use: Never Family History Family history unknown: Yes Problem List/Present on Admission: 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sion (HCC) (POA: Unknown) REVIEW OF SYSTEMS Constitutional: As per HPI Eyes: Negative for visual changes CV: Negative for chest pain Pulm: Negative for dyspnea GI: As per HPI : Negative for dysuria, hematuria MSK: Negative for myalgias, arthralgias Skin: Negative for skin changes Neuro: Negative for weakness Remainder of ROS negative unless documented in HPI PHYSICAL EXAM Vitals: 01/19/24 1624 01/19/24 1937 BP: 119/99 136/92 Pulse: (!) 128 (!) 131 Resp: 18 18 Temp: 98.4 ??F (36.9 ??C) 98.4 ??F (36.9 ??C) SpO2: 100% Weight: 108.9 kg (240 lb 1.6 oz) Height: 1.575 m (5' 2 ) Estimated body mass index is 43.91 kg/m?? as calculated from the following: Height as of this encounter: 1.575 m (5' 2 ). Weight as of this encounter: 108.9 kg (240 lb 1.6 oz). Gen: NAD HEENT: AT/NC, EOMI, oropharynx clear CV: RRR Pulm: Nonlabored respirations Abd: Soft, NT/ND Anus: right perianal erythema, could not thoroughly examine due to her pain MSK: WWP, no c/c/e Neuro: Moving all extremities, no focal deficits Psych: Appropriate mood and affect Recent Labs: CBC: Recent Labs Component Name 01/19/24 1713 12/30/23 2035 12/30/23 1104 WBC 0.6* - - HGB 8.2* - - HCT 22.6* - - PLT - - 34* - = values in this interval not displayed. BMP: Recent Labs Component Name 01/19/24 1713 NA 136 CL 106 CO2 20* BUN 11 CREATININE 0.70 Recent Labs Component Name 09/13/23 2052 PT 13.1 PTT 23.2 INR 1.0 Imaging: CT PE with delays CAP 01/19/2024: No evidence of central pulmonary embolism. Evaluation of segmental and subsegmental pulmonary arteries is degraded by suboptimal contrast opacification. The previously described segmental PE within the right pulmonary artery is not well-visualized. Diffuse bilateral tree-in-bud opacities throughout bilateral lungs, likely infectious in etiology. Redemonstrated perirectal fat stranding and mild rectal wall thickening without a confluent fluid collection, not significantly changed compared to prior, likely sequelae of colitis. Assessment and Plan: Selvin Mckeon is a 38 year old female with a hx of AML with complete remission, last chemo was a month ago and patient is still neutropenic. Admitted for evaluation of PE. Patient currently having for perirectal fat stranding that does not require any surgical intervention from the ACS team. - Recommend continue antibiotics as per primary team - Recommend Colorectal team consult in AM - No acute surgical intervention nor further evaluation needed from Acute Care Surgery team. Baldemar Casper MD General Surgery Mems Integration Engineer Acute Care Surgery Department 01/20/2024 Associated attestation - Ru Torres MD - 01/27/2024 9:18 AM CDT Pt seen and examined with team History and exam discussed with ACS chief Labs and films reviewed Agree with above assessments and plan Pt with oziel-rectal/oziel-anal pain Pt neutropenic No clear abscess on imaging Recommend abx documented in this encounter Plan of Treatment Upcoming Encounters Date Type Department Care Team (Late st Contact Info) Description 10/27/2024 10:30 [address]CAR DISPATCHER Appointment [facility] [address] [place] [address] Hussain Carias MD [address] [place] [address] Britni Winston PA-C [address] [place] [address] 11/17/2024 9:00 [address]RE[address]CAR DISPATCHER Office Visit [facility] - Ophthalmology [address] [facility] [place] [phone] Song Hobson MD [address] [facility] DEPT [place] [address] Scheduled Orders Name Type Priority Associated Diagnoses Orde r Schedule CT ABDOMEN PELVIS W CONTRAST Imaging Routine Anal or rectal pain 1 Occurrences starting 01/23/2024 until 01/22/2025 documented as of this encounter Procedures Procedure Name Priority Date/Time Associated Diagnosis Comments DIFFERENTIAL MANUAL AM Draw 01/23/2024 1 2:39 AM CDT CBC W AUTO DIFFERENTIAL AM Draw 01/23/2024 12:39 AM CDT BASIC METABOLIC PANEL (CALCIUM TOTAL) AM Draw 01/23/2024 12:39 AM CDT PHOSPHORUS BLOOD Routine 01/23/2024 12:3 9 AM CDT MAGNESIUM BLOOD Routine 01/23/2024 12:39 AM CDT CBC W/O DIFFERENTIAL STAT 01/22/2024 6:04 PM CDT TRANSFUSE PLATELET PHERESIS UNIT(S) Routine 01/22/2024 4:47 PM CDT PREPARE PLATELET PHERESIS UNIT(S) Routine 01/22/2024 4:40 PM CDT DIFFERENTIAL MANUAL AM Draw 01/22/2024 1 2:17 AM CDT CBC W AUTO DIFFERENTIAL AM Draw 01/22/2024 12:17 AM CDT BASIC METABOLIC PANEL (CALCIUM TOTAL) AM Draw 01/22/2024 12:17 AM CDT PHOSPHORUS BLOOD Routine 01/22/2024 12:1 7 AM CDT MAGNESIUM BLOOD Routine 01/22/2024 12:17 AM CDT DIFFERENTIAL MANUAL AM Draw 01/21/2024 1 2:05 AM CDT CBC W AUTO DIFFERENTIAL AM Draw 01/21/2024 12:05 AM CDT BASIC METABOLIC PANEL (CALCIUM TOTAL) AM Draw 01/21/2024 12:05 AM CDT PHOSPHORUS BLOOD Routine 01/21/2024 12:0 5 AM CDT MAGNESIUM BLOOD Routine 01/21/2024 12:05 AM CDT HEMOGLOBIN Timed 01/20/2024 11:53 AM CDT TRANSFUSE RED BLOOD CELL LEUKOREDUCED UNIT(S) Routine 01/20/2024 9:27 AM CDT PREPARE RBC LEUKOREDUCED UNIT Routine 01/20/2024 9:19 AM CDT TRANSFUSE PLATELET PHERESIS UNIT(S) Routine 01/20/2024 8:26 AM CDT PREPARE PLATELET PHERESIS UNIT(S) Routine 01/20/2024 7:57 AM CDT TYPE + SCREEN PANEL Routine 01/20/2024 6 :46 AM CDT C-REACTIVE PROTEIN LESLY 01/20/2024 3: 37 AM CDT DIFFERENTIAL MANUAL AM Draw 01/20/2024 3 :37 AM CDT CBC W AUTO DIFFERENTIAL AM Draw 01/20/2024 3:37 AM CDT BASIC METABOLIC PANEL (CALCIUM TOTAL) AM Draw 01/20/2024 3:37 AM CDT PHOSPHORUS BLOOD Routine 01/20/2024 3:37 AM CDT MAGNESIUM BLOOD Routine 01/20/2024 3:[address] CHEST PE W ABD PELVIS W CONT STAT 01/19/2024 9:26 PM CDT 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sion (HCC) PATHOLOGY PERIPHERAL SMEAR REVIEW STAT 01/19/2024 5:13 PM CDT DIFFERENTIAL MANUAL STAT 01/19/2024 5 :13 PM CDT CBC W AUTO DIFFERENTIAL STAT 01/19/2024 5:13 PM CDT BASIC METABOLIC PANEL (CALCIUM TOTAL) STAT 01/19/2024 5:13 PM CDT PHOSPHORUS BLOOD STAT 01/19/2024 5:13 PM CDT MAGNESIUM BLOOD STAT 01/19/2024 5:13 PM CDT documented in this encounter Results * (ABNORMAL) DIFFERENTIAL MANUAL (01/23/2024 12:39 AM CDT) Neutrophil % 25(L) 41 - 74 % 01/23/2024 2:11 AM CDT [facility] Lymphocyte % 44 17 - 47 % 01/23/2024 2:11 AM CDT [facility] Monocyte % 31(H) 3 - 11 % 01/23/2024 2:11 AM CDT [facility] Comment:Immature forms seen. Neutrophil Absolute 1.15(L) 1.60 - 7.50 x10E9/L 01/23/2024 2:11 AM CDT [facility] Lymphocyte Absolute 2.02 1.00 - 4.40 x10E9/L 01/23/2024 2:11 AM CDT [facility] Monocyte Absolute 1.43(H) 0.15 - 1.00 x10E9/L 01/23/2024 2:11 AM CDT [facility] RBC Morphology REVIEWED 01/23/2024 2:[address] [facility] Microcytosis MANY(A) (none) 01/23/2024 2:[address] [facility] Blood BLOOD SPECIMEN / Unknown Venipuncture / Unknown 01/23/2024 12:39 AM CDT 01/23/2024 12:48 AM CDT Kate Price DO LAB - HEMATOLOGY ORD ERABLES Performing Organization Address City/State/[facility] Co de Phone Number [facility] [address] [place] [address], [facility] [phone] * (ABNORMAL) CBC W AUTO DIFFERENTIAL (01/23/2024 12:39 AM CDT) WBC 4.6 4.0 - 10.7 x10E9/L 01/23/2024 2:[address] [facility] RBC Count 2.67(L) 3.90 - 5.20 x10E12/L 01/23/2024 2:[address] [facility] Hemoglobin 7.8(L) 11.9 - 15.8 g/dL 01/23/2024 2:[address] [facility] Hematocrit 21.4(L) 34.8 - 46.1 % 01/23/2024 2:[address] [facility] MCV 80.1 80.0 - 98.0 fL 01/23/2024 2:[address] [facility] MCH 29.2 26.7 - 33.6 pg 01/23/2024 2:[address] [facility] MCHC 36.4(H) 31.7 - 36.3 g/dL 01/23/2024 2:[address] [facility] RDW-CV 14.5 11.3 - 14.8 % 01/23/2024 2:[address] [facility] Platelet Count 32(L) 150 - 420 x10E9/L 01/23/2024 2:[address] [facility] MPV 9.6 7.8 - 11.4 fL 01/23/2024 2:[address] [facility] Preliminary Absolute Neutrophil 1.25(L) 1.60 - 7.50 x10E9/L 01/23/2024 2:[address] [facility] Comment:Preliminary ANC pend ing manual confirmation Blood BLOOD SPECIMEN / Unknown Venipuncture / Unknown 01/23/2024 12:39 AM CDT 01/23/2024 12:48 AM CDT Kate Price DO LAB - HEMATOLOGY ORD ERABLES [facility] [address] [place] [address], [facility] [phone] * (ABNORMAL) BASIC METABOLIC PANEL (CALCIUM TOTAL) (01/23/2024 12:39 AM CDT) BUN 6(L) 7 - 26 mg/dL 01/23/2024 1:[address] [facility] Creatinine 0.61 0.56 - 0.96 mg/dL 01/23/2024 1:[address] [facility] Sodium 142 136 - 145 mmol/L 01/23/2024 1:[address] [facility] Potassium 3.3(L) 3.5 - 4.5 mmol/L 01/23/2024 1:[address] [facility] Chloride 113(H) 98 - 107 mmol/L 01/23/2024 1:[address] [facility] CO2 22 22 - 29 mmol/L 01/23/2024 1:[address] [facility] Glucose 97 70 - 115 mg/dL 01/23/2024 1:[address] [facility] Calcium 9.4 8.4 - 10.2 mg/dL 01/23/2024 1:[address] [facility] Anion Gap 7 6 - 16 01/23/2024 1:[address] [facility] BUN/Creatinine Ratio 10 7 - 23 01/23/2024 1:[address] [facility] Osmolality Calculated 292 275 - 295 mOsm/kg 01/23/2024 1:[address] [facility] eGFR by CKD-EPI >90 >=90 mL/min/1.7 3 m2 01/23/2024 1:[address] [facility] Blood BLOOD SPECIMEN / Unknown Venipuncture / Unknown 01/23/2024 12:39 AM CDT 01/23/2024 12:48 AM CDT [facility] LAB - CHEMISTRY JON NAIDU Performing Organization Address City/[facility]/ZIP Co de Phone Number [address] [address], [facility] [phone] * MAGNESIUM BLOOD (01/23/2024 12:39 AM CDT) Magnesium 1.8 1.6 - 2.6 mg/dL 01/23/2024 1:18 AM CDT [facility] Blood BLOOD SPECIMEN / Unknown Venipuncture / Unknown 01/23/2024 12:39 AM CDT 01/23/2024 12:48 AM CDT Kate Upperville DO LAB - CHEMISTRY JON NAIDU Performing Organization Address [facility]/ZIP Co de Phone Number [address] [address], [place] [phone] * PHOSPHORUS BLOOD (01/23/2024 12:39 AM CDT) Phosphorus 3.2 2.9 - 5.1 mg/dL 01/23/2024 1:12 AM CDT [facility] Blood BLOOD SPECIMEN / Unknown Venipuncture / Unknown 01/23/2024 12:39 AM CDT 01/23/2024 12:48 AM CDT Kate Upperville DO LAB - CHEMISTRY JON NAIDU Performing Organization Address City/[facility]/ZIP Co de Phone Number [address] [address], [place] [phone] * (ABNORMAL) CBC W/O DIFFERENTIAL (01/22/2024 6:04 PM CDT) WBC 4.3 4.0 - 10.7 x10E9/L 01/22/2024 6:[address] [facility] RBC Count 2.85(L) 3.90 - 5.20 x10E12/L 01/22/2024 6:[address] [facility] Hemoglobin 8.2(L) 11.9 - 15.8 g/dL 01/22/2024 6:[address] [facility] Hematocrit 22.7(L) 34.8 - 46.1 % 01/22/2024 6:[address] [facility] MCV 79.6(L) 80.0 - 98.0 fL 01/22/2024 6:[address] [facility] MCH 28.8 26.7 - 33.6 pg 01/22/2024 6:[address] [facility] MCHC 36.1 31.7 - 36.3 g/dL 01/22/2024 6:[address] [facility] RDW-CV 14.2 11.3 - 14.8 % 01/22/2024 6:[address] [facility] Platelet Count 42(L) 150 - 420 x10E9/L 01/22/2024 6:[address] [facility] MPV 8.7 7.8 - 11.4 fL 01/22/2024 6:[address] [facility] Blood BLOOD SPECIMEN / Unknown Venipuncture / Unknown 01/22/2024 6:04 PM CDT 01/22/2024 6:10 PM CDT Kate Upperville DO LAB - HEMATOLOGY ORD ERABLES Performing Organization Address City/State/[facility] Co de Phone Number [facility] [address] [place] [address], [facility] [phone] * TRANSFUSE PLATELET PHERESIS UNIT(S) (01/22/2024 5:36 PM CDT) Kate Upperville DO NURSING - BLOOD PROD TRANSFUSION * TRANSFUSE PLATELET PHERESIS UNIT(S), 1 Units (01/22/2024 5:36 PM CDT) Kate Upperville DO NURSING - BLOOD PROD TRANSFUSION * PREPARE PLATELET PHERESIS UNIT(S), 1 Units (01/22/2024 4:40 PM CDT) Unit Description LRPLTphere B7 IR [facility] Unit ABO B [facility] Unit Rh POS [facility] Product Number P31 [facility] Unit Donor # [id number] [facility] Unit Status transfused [facility] Product Code [id number] [facility] Blood Type Barcode 7300 [facility] Expiration Date [facility] Blood Bank BLOOD SPECIMEN / Unknown 01/20/2024 6:52 AM CDT Kate Price DO LAB - BLOOD BANK ORD ERABLES [facility] [address] [place] [address], [facility] [phone] * (ABNORMAL) DIFFERENTIAL MANUAL (01/22/2024 12:17 AM CDT) [facility] Neutrophil % 33(L) 41 - 74 % 01/22/2024 2:59 AM CDT [facility] Lymphocyte % 37 17 - 47 % 01/22/2024 2:59 AM T [facility] Monocyte % 23(H) 3 - 11 % 01/22/2024 2:59 AM T [facility] Other Cells % 7(H) 0% % 01/22/2024 2:59 AM T [facility] Comment:Immature-appearing m onocytes Neutrophil Absolute 0.79(L) 1.60 - 7.50 x10E9/L 01/22/2024 2:59 AM CDT [facility] Lymphocyte Absolute 0.89(L) 1.00 - 4.40 x10E9/L 01/22/2024 2:59 AM T [facility] Monocyte Absolute 0.55 0.15 - 1.00 x10E9/L 01/22/2024 2:59 AM T [facility] RBC Morphology REVIEWED 01/22/2024 2:59 AM T [facility] Microcytosis MODERATE(A) (none) 01/22/2024 2:59 AM T [facility] Toxic Changes PRESENT(A) (none) 01/22/2024 2:59 AM CDT [facility] Blood BLOOD SPECIMEN / Unknown Venipuncture / Unknown 01/22/2024 12:17 AM CDT 01/22/2024 12:24 AM CDT [facility] LAB - HEMATOLOGY ORD ERABLES Performing Organization Address City/[facility]/ZIP Co de Phone Number [address] [address], [facility] [phone] * MAGNESIUM BLOOD (01/22/2024 12:17 AM CDT) Magnesium 1.8 1.6 - 2.6 mg/dL 01/22/2024 12:52 AM CDT [facility] Blood BLOOD SPECIMEN / Unknown Venipuncture / Unknown 01/22/2024 12:17 AM CDT 01/22/2024 12:25 AM CDT [facility] LAB - CHEMISTRY ORDE RABLES Performing Organization Address [facility]/ZIP Co de Phone Number [address] [address], [facility] [phone] * PHOSPHORUS BLOOD (01/22/2024 12:17 AM CDT) Phosphorus 3.6 2.9 - 5.1 mg/dL 01/22/2024 12:52 AM CDT [facility] Blood BLOOD SPECIMEN / Unknown Venipuncture / Unknown 01/22/2024 12:17 AM CDT 01/22/2024 12:25 AM CDT [facility] LAB - CHEMISTRY ORDE RABLES Performing Organization Address [facility]/ZIP Co de Phone Number [address] [address], [facility] [phone] * (ABNORMAL) BASIC METABOLIC PANEL (CALCIUM TOTAL) (01/22/2024 12:17 AM CDT) BUN 6(L) 7 - 26 mg/dL 01/22/2024 12:[address] [facility] Creatinine 0.61 0.56 - 0.96 mg/dL 01/22/2024 12:[address] [facility] Sodium 142 136 - 145 mmol/L 01/22/2024 12:[address] [facility] Potassium 3.4(L) 3.5 - 4.5 mmol/L 01/22/2024 12:[address] [facility] Chloride 109(H) 98 - 107 mmol/L 01/22/2024 12:[address] [facility] CO2 22 22 - 29 mmol/L 01/22/2024 12:[address] [facility] Glucose 123(H) 70 - 115 mg/dL 01/22/2024 12:[address] [facility] Calcium 9.2 8.4 - 10.2 mg/dL 01/22/2024 12:[address] [facility] Anion Gap 11 6 - 16 01/22/2024 12:[address] [facility] BUN/Creatinine Ratio 10 7 - 23 01/22/2024 12:[address] [facility] Osmolality Calculated 293 275 - 295 mOsm/kg 01/22/2024 12:[address] [facility] eGFR by CKD-EPI >90 >=90 mL/min/1.7 3 m2 01/22/2024 12:[address] [facility] Blood BLOOD SPECIMEN / Unknown Venipuncture / Unknown 01/22/2024 12:17 AM CDT 01/22/2024 12:25 AM [facility] Kate Price DO LAB - CHEMISTRY JON NAIDU [address] [address], [facility] [phone] * (ABNORMAL) CBC W AUTO DIFFERENTIAL (01/22/2024 12:17 AM CDT) Pathologist [facility] WBC 2.4(L) 4.0 - 10.7 x10E9/L 01/22/2024 2:[address] [facility] RBC Count 2.58(L) 3.90 - 5.20 x10E12/L 01/22/2024 2:[address] [facility] Hemoglobin 7.4(L) 11.9 - 15.8 g/dL 01/22/2024 2:[address] [facility] Hematocrit 20.7(L) 34.8 - 46.1 % 01/22/2024 2:[address] [facility] MCV 80.2 80.0 - 98.0 fL 01/22/2024 2:[address] [facility] MCH 28.7 26.7 - 33.6 pg 01/22/2024 2:[address] [facility] MCHC 35.7 31.7 - 36.3 g/dL 01/22/2024 2:[address] [facility] RDW-CV 14.3 11.3 - 14.8 % 01/22/2024 2:[address] [facility] Platelet Count 15(LL) 150 - 420 x10E9/L 01/22/2024 2:[address] [facility] MPV 8.4 7.8 - 11.4 fL 01/22/2024 2:[address] [facility] Preliminary Absolute Neutrophil 0.36(L) 1.60 - 7.50 x10E9/L 01/22/2024 2:[address] [facility] Comment:Preliminary ANC pend ing manual confirmation Blood BLOOD SPECIMEN / Unknown Venipuncture / Unknown 01/22/2024 12:17 AM CDT 01/22/2024 12:24 AM CDT Kate Price DO LAB - HEMATOLOGY ORD ERABLES [address] [address], [facility] [phone] * (ABNORMAL) DIFFERENTIAL MANUAL (01/21/2024 12:05 AM CDT) Neutrophil % 23(L) 41 - 74 % 01/21/2024 5:[address] [facility] Lymphocyte % 32 17 - 47 % 01/21/2024 5:[address] [facility] Monocyte % 40(H) 3 - 11 % 01/21/2024 5:[address] [facility] Other Cells % 5(H) 0% % 01/21/2024 5:[address] [facility] Comment:Immature-appearing m onocytes Neutrophil Absolute 0.25(L) 1.60 - 7.50 x10E9/L 01/21/2024 5:[address] [facility] Lymphocyte Absolute 0.35(L) 1.00 - 4.40 x10E9/L 01/21/2024 5:[address] [facility] Monocyte Absolute 0.44 0.15 - 1.00 x10E9/L 01/21/2024 5:[address] [facility] RBC Morphology REVIEWED 01/21/2024 5:[address] [facility] Microcytosis MANY(A) (none) 01/21/2024 5:[address] [facility] Blood BLOOD SPECIMEN / Unknown Venipuncture / Unknown 01/21/2024 12:05 AM CDT 01/21/2024 12:18 AM CDT Kate Price DO LAB - HEMATOLOGY ORD ERABLES [address] [address], [facility] [phone] * MAGNESIUM BLOOD (01/21/2024 12:05 AM CDT) Magnesium 1.8 1.6 - 2.6 mg/dL 01/21/2024 12:44 AM T [facility] Blood BLOOD SPECIMEN / Unknown Venipuncture / Unknown 01/21/2024 12:05 AM CDT 01/21/2024 12:18 AM CDT Kate Price DO LAB - CHEMISTRY ORDE RABLES Performing Organization Address City/[facility]/ZIP Co de Phone Number [address] [address], [place] [phone] * PHOSPHORUS BLOOD (01/21/2024 12:05 AM CDT) Phosphorus 4.3 2.9 - 5.1 mg/dL 01/21/2024 12:[address] [facility] Blood BLOOD SPECIMEN / Unknown Venipuncture / Unknown 01/21/2024 12:05 AM CDT 01/21/2024 12:18 AM CDT Kate Price DO LAB - CHEMISTRY MANJULAE ELYSIA [facility] [address] [place] [address], [facility] [phone] * (ABNORMAL) BASIC METABOLIC PANEL (CALCIUM TOTAL) (01/21/2024 12:05 AM CDT) BUN 6(L) 7 - 26 mg/dL 01/21/2024 12:[address] [facility] Creatinine 0.64 0.56 - 0.96 mg/dL 01/21/2024 12:[address] [facility] Sodium 140 136 - 145 mmol/L 01/21/2024 12:[address] [facility] Potassium 3.7 3.5 - 4.5 mmol/L 01/21/2024 12:[address] [facility] Chloride 108(H) 98 - 107 mmol/L 01/21/2024 12:[address] [facility] CO2 21(L) 22 - 29 mmol/L 01/21/2024 12:[address] [facility] Glucose 108 70 - 115 mg/dL 01/21/2024 12:[address] [facility] Calcium 9.3 8.4 - 10.2 mg/dL 01/21/2024 12:[address] [facility] Anion Gap 11 6 - 16 01/21/2024 12:[address] [facility] BUN/Creatinine Ratio 9 7 - 23 01/21/2024 12:[address] [facility] Osmolality Calculated 288 275 - 295 mOsm/kg 01/21/2024 12:[address] [facility] eGFR by CKD-EPI >90 >=90 mL/min/1.7 3 m2 01/21/2024 12:[address] [facility] Blood BLOOD SPECIMEN / Unknown Venipuncture / Unknown 01/21/2024 12:05 AM CDT 01/21/2024 12:18 AM CDT Kate Price DO LAB - CHEMISTRY JON NAIDU Performing Organization Address City/State/[facility] Co de Phone Number [facility] [address] [place] [address], [facility] [phone] * (ABNORMAL) CBC W AUTO DIFFERENTIAL (01/21/2024 12:05 AM CDT) WBC 1.1(L) 4.0 - 10.7 x10E9/L 01/21/2024 5:[address] [facility] RBC Count 2.49(L) 3.90 - 5.20 x10E12/L 01/21/2024 5:[address] [facility] Hemoglobin 7.2(L) 11.9 - 15.8 g/dL 01/21/2024 5:[address] [facility] Hematocrit 19.7(L) 34.8 - 46.1 % 01/21/2024 5:[address] [facility] MCV 79.1(L) 80.0 - 98.0 fL 01/21/2024 5:[address] [facility] MCH 28.9 26.7 - 33.6 pg 01/21/2024 5:[address] [facility] MCHC 36.5(H) 31.7 - 36.3 g/dL 01/21/2024 5:[address] [facility] RDW-CV 13.9 11.3 - 14.8 % 01/21/2024 5:[address] [facility] Platelet Count 24(L) 150 - 420 x10E9/L 01/21/2024 5:[address] [facility] MPV 10.0 7.8 - 11.4 fL 01/21/2024 5:[address] [facility] Preliminary Absolute Neutrophil 0.20(L) 1.60 - 7.50 x10E9/L 01/21/2024 5:05 AM CDT [facility] Comment:Preliminary ANC pend ing manual confirmation Blood BLOOD SPECIMEN / Unknown Venipuncture / Unknown 01/21/2024 12:05 AM CDT 01/21/2024 12:18 AM CDT Kate Upperville DO LAB - HEMATOLOGY ORD ERABLES Performing Organization Address City/[facility]/ZIP Co de Phone Number [address] [address], [facility] [phone] * (ABNORMAL) HEMOGLOBIN (01/20/2024 11:53 AM CDT) Hemoglobin 8.2(L) 11.9 - 15.8 g/dL 01/20/2024 12:12 PM CDT [facility] Blood BLOOD SPECIMEN / Unknown Venipuncture / Unknown 01/20/2024 11:53 AM CDT 01/20/2024 12:07 PM CDT Kate Upperville DO LAB - HEMATOLOGY ORD ERABLES Performing Organization Address City/[facility]/ZIP Co de Phone Number [address] [address], [facility] [phone] * TRANSFUSE RED BLOOD CELL LEUKOREDUCED UNIT(S) (01/20/2024 11:21 AM CDT) Kate Upperville DO NURSING - BLOOD PROD TRANSFUSION * TRANSFUSE RED BLOOD CELL LEUKOREDUCED UNIT(S), 1 Units (01/20/2024 11:21 AM CDT) Kate Upperville DO NURSING - BLOOD PROD TRANSFUSION * TRANSFUSE PLATELET PHERESIS UNIT(S) (01/20/2024 9:21 AM CDT) Kate Upperville DO NURSING - BLOOD PROD TRANSFUSION * TRANSFUSE PLATELET PHERESIS UNIT(S), 1 Units (01/20/2024 9:21 AM CDT) Kate Upperville DO NURSING - BLOOD PROD TRANSFUSION * PREPARE (CROSSMATCH) RBC UNIT(S), 1 Units (01/20/2024 9:19 AM CDT) Unit Description AS1 LR RBC IRRLV [facility] Unit ABO O [facility] Unit Rh NEG [facility] Product Number R53 [facility] B[facility] Unit Donor # [id number] [facility] Unit Status transfused [facility] Product Code [id number] [facility] Blood Type Barcode 9500 [facility] Expiration Date [id number] S BLOOD BANK LAB Blood Bank BLOOD SPECIMEN / Unknown 01/20/2024 6:52 AM CDT [facility] LAB - BLOOD BANK ORD ERABLES [facility] [address] [place] [address], [place] [phone] * PREPARE PLATELET PHERESIS UNIT(S), 1 Units (01/20/2024 7:57 AM CDT) Unit Description LR PLT Phere PRT [facility] Unit ABO AB [facility] Unit Rh POS [facility] Product Number E8332 [facility] B[facility] Unit Donor # [id number] [facility] Unit Status transfused [facility] Product Code [id number] [facility] Blood Type Barcode 8400 [facility] Expiration Date [id number] [facility] Blood Bank BLOOD SPECIMEN / Unknown 01/20/2024 6:52 AM CDT [facility] LAB - BLOOD BANK ORD ERABLES [facility] [address] [place] [address], [place] [phone] * TYPE + SCREEN PANEL (01/20/2024 6:46 AM CDT) Antibody Screen NEG 7:43 AM CDT [facility] ABO Rh O POS 01/20/2024 7:43 AM CDT [facility] BLOOD [facility] Blood Bank BLOOD SPECIMEN / Unknown Venipuncture / Unknown 01/20/2024 6:46 AM CDT 01/20/2024 6:52 AM CDT Kate [facility] LAB - BLOOD BANK ORD ERABLES [facility] [address] [place] [address], [facility] [phone] * (ABNORMAL) DIFFERENTIAL MANUAL (01/20/2024 3:37 AM CDT) Neutrophil % 8(L) 41 - 74 % 01/20/2024 6:[address] [facility] Lymphocyte % 60(H) 17 - 47 % 01/20/2024 6:[address] [facility] Monocyte % 26(H) 3 - 11 % 01/20/2024 6:[address] [facility] Other Cells % 6(H) 0% % 01/20/2024 6:[address] [facility] Comment:Immature monocytes Neutrophil Absolute 0.06(L) 1.60 - 7.50 x10E9/L 01/20/2024 6:[address] [facility] Lymphocyte Absolute 0.42(L) 1.00 - 4.40 x10E9/L 01/20/2024 6:[address] [facility] Monocyte Absolute 0.18 0.15 - 1.00 x10E9/L 01/20/2024 6:[address] [facility] RBC Morphology REVIEWED 01/20/2024 6:[address] [facility] Microcytosis MODERATE(A) (none) 01/20/2024 6:[address] [facility] Blood BLOOD SPECIMEN / Unknown Venipuncture / Unknown 01/20/2024 3:37 AM CDT 01/20/2024 3:45 AM CDT Kate [facility] LAB - HEMATOLOGY ORD ERABLES [address] [address], [facility] [phone] * (ABNORMAL) C-REACTIVE PROTEIN (01/20/2024 3:37 AM CDT) C-Reactive Protein 13.5(H) <=0.5 mg/dL 01/20/2024 4:13 AM CDT [facility] Blood BLOOD SPECIMEN / Unknown Venipuncture / Unknown 01/20/2024 3:37 AM CDT 01/20/2024 3:46 AM CDT [facility] - CHEMISTRY [employer]DH[employer] Performing Organization Address City/[facility]/ZIP Co de Phone Number [address] [address], [facility] [phone] * MAGNESIUM BLOOD (01/20/2024 3:37 AM CDT) Magnesium 1.7 1.6 - 2.6 mg/dL 01/20/2024 4:13 AM CDT [facility] Blood BLOOD SPECIMEN / Unknown Venipuncture / Unknown 01/20/2024 3:37 AM CDT 01/20/2024 3:46 AM CDT [facility] LAB - CHEMISTRY [employer] Performing Organization Address [facility]/ZIP Co de Phone Number [address] [address], [facility] [phone] * PHOSPHORUS BLOOD (01/20/2024 3:37 AM CDT) Phosphorus 4.4 2.9 - 5.1 mg/dL 01/20/2024 4:13 AM CDT [facility] Blood BLOOD SPECIMEN / Unknown Venipuncture / Unknown 01/20/2024 3:37 AM CDT 01/20/2024 3:46 AM CDT [facility] - CHEMISTRY ORDE [employer] [address] [place] [address], [facility] [phone] * (ABNORMAL) BASIC METABOLIC PANEL (CALCIUM TOTAL) (01/20/2024 3:37 AM CDT) BUN 8 7 - 26 mg/dL 01/20/2024 4:[address] [facility] Creatinine 0.64 0.56 - 0.96 mg/dL 01/20/2024 4:[address] [facility] Sodium 137 136 - 145 mmol/L 01/20/2024 4:[address] [facility] Potassium 3.7 3.5 - 4.5 mmol/L 01/20/2024 4:[address] [facility] Chloride 107 98 - 107 mmol/L 01/20/2024 4:[address] [facility] CO2 21(L) 22 - 29 mmol/L 01/20/2024 4:[address] [facility] Glucose 108 70 - 115 mg/dL 01/20/2024 4:[address] [facility] Calcium 9.3 8.4 - 10.2 mg/dL 01/20/2024 4:[address] [facility] Anion Gap 9 6 - 16 01/20/2024 4:[address] [facility] BUN/Creatinine Ratio 13 7 - 23 01/20/2024 4:[address] [facility] Osmolality Calculated 283 275 - 295 mOsm/kg 01/20/2024 4:[address] [facility] eGFR by CKD-EPI >90 >=90 mL/min/1.7 3 m2 01/20/2024 4:[address] [facility] Blood BLOOD SPECIMEN / Unknown Venipuncture / Unknown 01/20/2024 3:37 AM CDT 01/20/2024 3:46 AM T Kate Price DO LAB - CHEMISTRY MANJULAE ELYSIA [facility] [address] [place] [address], [facility] [phone] * (ABNORMAL) CBC W AUTO DIFFERENTIAL (01/20/2024 3:37 AM CDT) WBC 0.7(LL) 4.0 - 10.7 x10E9/L 01/20/2024 6:[address] [facility] RBC Count 2.23(L) 3.90 - 5.20 x10E12/L 01/20/2024 6:[address] [facility] Hemoglobin 6.4(L) 11.9 - 15.8 g/dL 01/20/2024 6:[address] [facility] Hematocrit 17.6(L) 34.8 - 46.1 % 01/20/2024 6:[address] [facility] MCV 78.9(L) 80.0 - 98.0 fL 01/20/2024 6:[address] [facility] MCH 28.7 26.7 - 33.6 pg 01/20/2024 6:[address] [facility] MCHC 36.4(H) 31.7 - 36.3 g/dL 01/20/2024 6:[address] [facility] RDW-CV 14.0 11.3 - 14.8 % 01/20/2024 6:[address] [facility] Platelet Count 22(L) 150 - 420 x10E9/L 01/20/2024 6:[address] [facility] MPV 9.0 7.8 - 11.4 fL 01/20/2024 6:[address] [facility] Preliminary Absolute Neutrophil 0.06(L) 1.60 - 7.50 x10E9/L 01/20/2024 6:[address] [facility] Comment:Preliminary ANC pend ing manual confirmation Blood BLOOD SPECIMEN / Unknown Venipuncture / Unknown 01/20/2024 3:37 AM CDT 01/20/2024 3:45 AM T Kate Price DO LAB - HEMATOLOGY ORD ERABLES [facility] [address] [place] [address], [facility] [phone] * CT CHEST PE W ABD PELVIS [...] colitis. > Dictated by Partha Ryan MD (president [employer]). I, Feliciano Ordaz MD have personally reviewed and interpreted this examination/study. > Interpreting Provider: Feliciano Ordaz MD on 01/19/2024 11:59 PM Narrative 01/19/2024 11:59 PM CDT PROCEDURE: ??CT CHEST PE W ABD PELVIS W CONT, DATE/TIME OF EXAM: ??01/19/2024 9:27 PM, LOCATION ??[facility] INDICATION: C92.00: Acute myeloid leukemia not having [...] CONT, DATE/TIME OF EXAM:01/19/2024 9:27 PM, LOCATION [facility] INDICATION: C92.00: Acute myeloid leukemia not having [...] colitis. > Dictated by Partha Ryan MD (president [employer]). I, Feliciano Ordaz MD have personally reviewed and interpreted this examination/study. > Interpreting Provider: Feliciano Ordaz MD on 1:59 PM Kate Upperville DO CT ORDERABLES * PATHOLOGY PERIPHERAL SMEAR REVIEW (01/19/2024 5:13 PM CDT) Path Review Confirmed 01/20/2024 3:59 PM CDT [facility] Blood BLOOD SPECIMEN / Unknown Venipuncture / Unknown 01/19/2024 5:13 PM CDT 01/19/2024 5:29 PM CDT Narrative [facility] - 01/20/2024 3:59 PM CDT Final [...] Physician Department of Pathology Transfusion Medicine Kate Upperville DO LAB - PATHOLOGY/CYTO LOGY ORDERABLES [facility] [address] [place] [address], [facility] [phone] * (ABNORMAL) DIFFERENTIAL MANUAL (01/19/2024 5:13 PM CDT) Pathologist [facility] Neutrophil % 6(L) 41 - 74 % 01/19/2024 7:[address] [facility] Lymphocyte % 72(H) 17 - 47 % 01/19/2024 7:[address] [facility] Comment:Reactive Lymphocytes present Monocyte % 18(H) 3 - 11 % 01/19/2024 7:[address] [facility] Other Cells % 4(H) 0% % 01/19/2024 7:[address] [facility] Comment:immature appearing m onocytes Neutrophil Absolute 0.04(L) 1.60 - 7.50 x10E9/L 01/19/2024 7:[address] [facility] Lymphocyte Absolute 0.43(L) 1.00 - 4.40 x10E9/L 01/19/2024 7:[address] [facility] Monocyte Absolute 0.11(L) 0.15 - 1.00 x10E9/L 01/19/2024 7:[address] [facility] RBC Morphology REVIEWED 01/19/2024 7:[address] [facility] Jeremi Cells MODERATE(A) (none) 01/19/2024 7:[address] [facility] Microcytosis MODERATE(A) (none) 01/19/2024 7:[address] [facility] Toxic Changes PRESENT(A) (none) 01/19/2024 7:[address] [facility] Blood BLOOD SPECIMEN / Unknown Venipuncture / Unknown 01/19/2024 5:13 PM CDT 01/19/2024 5:29 PM CDT Kate Price DO LAB - HEMATOLOGY ORD ERABLES [facility] [address] [place] [address], [facility] [phone] * PHOSPHORUS BLOOD (01/19/2024 5:13 PM CDT) Pathologist [facility] Phosphorus 3.4 2.9 - 5.1 mg/dL 01/19/2024 5:57 PM CDT [facility] Blood BLOOD SPECIMEN / Unknown Venipuncture / Unknown 01/19/2024 5:13 PM CDT 01/19/2024 5:29 PM CDT [facility] LAB - CHEMISTRY ORDAzul NAIDU Performing Organization Address City/[facility]/ZIP Co de Phone Number [address] [address], [facility] [phone] * MAGNESIUM BLOOD (01/19/2024 5:13 PM CDT) Magnesium 1.9 1.6 - 2.6 mg/dL 01/19/2024 5:57 PM CDT [facility] Blood BLOOD SPECIMEN / Unknown Venipuncture / Unknown 01/19/2024 5:13 PM CDT 01/19/2024 5:29 PM CDT [facility] LAB - CHEMISTRY ORDAzul NAIDU Performing Organization Address [facility]/ZIP Co de Phone Number [address] [address], [facility] [phone] * (ABNORMAL) BASIC METABOLIC PANEL (CALCIUM TOTAL) (01/19/2024 5:13 PM CDT) BUN 11 7 - 26 mg/dL 01/19/2024 5:57 PM CDT [facility] Creatinine 0.70 0.56 - 0.96 mg/dL 01/19/2024 5:57 PM CDT [facility] Sodium 136 136 - 145 mmol/L 01/19/2024 5:57 PM CDT [facility] Potassium 3.8 3.5 - 4.5 mmol/L 01/19/2024 5:57 PM T [facility] Chloride 106 98 - 107 mmol/L 01/19/2024 5:57 PM T [facility] CO2 20(L) 22 - 29 mmol/L 01/19/2024 5:57 PM CDT [facility] Glucose 112 70 - 115 mg/dL 01/19/2024 5:57 PM T [facility] Calcium 10.0 8.4 - 10.2 mg/dL 01/19/2024 5:[address] [facility] Anion Gap 10 6 - 16 01/19/2024 5:[address] [facility] BUN/Creatinine Ratio 16 7 - 23 01/19/2024 5:[address] [facility] Osmolality Calculated 282 275 - 295 mOsm/kg 01/19/2024 5:[address] [facility] eGFR by CKD-EPI >90 >=90 mL/min/1.7 3 m2 01/19/2024 5:[address] [facility] Blood BLOOD SPECIMEN / Unknown Venipuncture / Unknown 01/19/2024 5:13 PM CDT 01/19/2024 5:29 PM CDT Kate Price DO LAB - CHEMISTRY MANJULAE ELYSIA Performing Organization Address City/State/[facility] Co de Phone Number [address] [address], [facility] [phone] * (ABNORMAL) CBC W AUTO DIFFERENTIAL (01/19/2024 5:13 PM CDT) WBC 0.6(LL) 4.0 - 10.7 x10E9/L 01/19/2024 6:[address] [facility] RBC Count 2.85(L) 3.90 - 5.20 x10E12/L 01/19/2024 6:[address] [facility] Hemoglobin 8.2(L) 11.9 - 15.8 g/dL 01/19/2024 6:[address] [facility] Hematocrit 22.6(L) 34.8 - 46.1 % 01/19/2024 6:[address] [facility] MCV 79.3(L) 80.0 - 98.0 fL 01/19/2024 6:[address] [facility] MCH 28.8 26.7 - 33.6 pg 01/19/2024 6:[address] [facility] MCHC 36.3 31.7 - 36.3 g/dL 01/19/2024 6:59 PM CDT [facility] RDW-CV 14.3 11.3 - 14.8 % 01/19/2024 6:59 PM CDT [facility] Platelet Count 38(L) 150 - 420 x10E9/L 01/19/2024 6:59 PM CDT [facility] MPV 9.4 7.8 - 11.4 fL 01/19/2024 6:59 PM T [facility] Preliminary Absolute Neutrophil 0.05(L) 1.60 - 7.50 x10E9/L 01/19/2024 6:59 PM T [facility] Comment:Preliminary ANC pend ing manual confirmation Blood BLOOD SPECIMEN / Unknown Venipuncture / Unknown 01/19/2024 5:13 PM CDT 01/19/2024 5:29 PM CDT Kate Price DO LAB - HEMATOLOGY ORD ERABLES Performing Organization Address City/[facility] Co de Phone Number [facility] [address] [place] [address], [facility] [phone] documented in this encounter Visit Diagnoses Diagnosis 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sion (HCC)- Primary 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sion (HCC) Anal or rectal pain 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 Tachycardia Tachycardia, unspecified Anal or rectal pain documented in this encounter Administered Medications Inactive Administered Medications - up to 3 most recent administrations Medication Order MAR Action Action Date Dose Rate Site 0.9% NaCl injection 1-10 mL 1-10 mL, Intracatheter, PRN, Other, peripheral line flush, Starting on Fri01/19/24 at 1641, Until Fri01/23/24 at 1856, Flush peripheral IV catheter with 1-10 mL of normal saline before and after medications and prn to clear blood from the line or to verify patency. 0.9% NaCl injection 3 mL 3 mL, Intracatheter, EVERY 8 HOURS, First dose on Fri01/19/24 at 1715, Until Discontinued, Flush peripheral IV catheter with 3 mL of normal saline every 8 hours. $ Given 01/23/2024 1:09 PM CDT 3 mL $ Given 01/23/2024 5:23 AM CDT 3 mL $ Given 01/21/2024 1:28 PM CDT 3 mL cefepime (Maxipime) 2,000 mg in 0.9% NaCl IV 50 mL IVPB 2,000 mg (2 g), at 100 mL/hr, Intravenous, EVERY 8 HOURS, First dose on Fri01/19/24 at 1730, Until Discontinued, Indication for anti-infective therapy: Documented infection, Site of anti-infective therapy: Intra-abdominal Rate Change 01/23/2024 1:43 PM CDT 5 mL/h r $ New Bag/Syringe 01/23/2024 1:11 PM CDT 2,000 mg 100 mL /hr $ New Bag/Syringe 01/23/2024 5:22 AM CDT 2,000 mg 100 mL /hr diazePAM (Valium) tablet 5 mg 5 mg, Oral, 3 TIMES DAILY PRN, Other, Rectal PAIN, Starting on Fri01/20/24 at 1346, Until Fri01/21/24 at 1051 $ Given 01/20/2024 6:32 PM CDT 5 mg diazePAM (Valium) tablet 5 mg 5 mg, Oral, 3 TIMES DAILY PRN, Other, Rectal PAIN, Starting on Fri01/21/24 at 1051, Until Fri01/23/24 at 1856 $ Given 01/22/2024 6:01 PM CDT 5 mg $ Given 01/22/2024 8:57 AM CDT 5 mg $ Given 01/22/2024 12:54 AM CDT 5 mg diltiaZEM 2% ointment Topical, 2 TIMES DAILY, First dose on Fri01/21/24 at 1415, Until Discontinued, Apply sufficient quantity to anal fissure twice daily Compounded by pharmacy $ Given 01/23/2024 8:11 AM CDT $ Given 01/22/2024 8:43 PM CDT $ Given 01/22/2024 8:58 AM CDT diphenhydrAMINE (Benadryl) capsule 50 mg 50 mg, Oral, AT BEDTIME PRN, Itching, Starting on Fri01/19/24 at 2046, Until Fri01/23/24 at 1856 $ Given 01/21/2024 12:04 AM CDT 50 mg $ Given 01/19/2024 9:26 PM CDT 50 mg [id number]-mohk/mag/simethi cone 1:1:1 (First Mouthwash BLM) suspension 5 mL 5 mL, Swish and Spit, EVERY 6 HOURS PRN, Sore Throat, Starting on Ally 01/22/24 at 0023, Until Fri01/23/24 at 1856, Equivalent to Benadryl, Lidocaine 2% viscous, Maalox, 1:1:1 ratio $ Given 01/22/2024 12:39 AM CDT 5 mL docusate sodium (Colace) capsule 100 mg 100 mg, Oral, DAILY, First dose on Fri01/20/24 at 1430, Until Discontinued $ Given 01/23/2024 8:11 AM CDT 100 mg $ Given 01/22/2024 8:58 AM CDT 100 mg $ Given 01/21/2024 8:35 AM CDT 100 mg iopamidol (Isovue 370) 76 % contrast Intravenous, CONTRAST ONCE, Starting on Fri01/19/24 at 2054, Until Fri01/21/24 at 2053 $ Given - Contrast 01/19/2024 9:08 PM CDT 100 mL lactated ringers IV bolus 1,000 mL, at 331.49 mL/hr, Administer over 181 Minutes, ONCE, 1 dose, On Fri01/19/24 at 1930 $ New Bag/Syringe 01/19/2024 7:49 PM CDT 1,000 mL 331.49 mL/hr metroNIDAZOLE (Flagyl) tablet 500 mg 500 mg, Oral, EVERY 8 HOURS, First dose on Fri01/19/24 at 1800, Until Discontinued, May take with food or milk., Indication for anti-infective therapy: Suspected infection, Site of anti-infective therapy: Intra-abdominal $ Given 01/23/2024 1:09 PM CDT 500 mg $ Given 01/23/2024 5:23 AM CDT 500 mg $ Given 01/22/2024 8:42 PM CDT 500 mg morphine injection 2 mg 2 mg, Intravenous, EVERY 4 HOURS PRN, Severe Pain, Moderate Pain, Starting on Fri01/19/24 at 1652, Until Fri01/23/24 at 1856, For use if oral option ineffective or unable to be given. Patient preference for lesser PRN pain meds may be honored when the patient requests a less strong medication, a lower dose, or a less intrusive route of administration when the lesser drug, dose and route have been ordered for the patient. This patient request must be documented in the MAR. If both oral and IV options are ordered for the same pain severity, give oral first unless patient cannot tolerate oral intake $ Given 01/22/2024 12:53 AM CDT 2 mg $ Given 01/21/2024 6:52 PM CDT 2 mg $ Given 01/21/2024 1:27 PM CDT 2 mg oxyCODONE (immediate release) (Roxicodone) tablet 5 mg 5 mg, Oral, EVERY 6 HOURS PRN, Moderate Pain, Severe Pain, Starting on Fri01/19/24 at 1850, Until Fri01/20/24 at 0752, Patient preference for lesser PRN pain meds may be honored when the patient requests a less strong medication, a lower dose, or a less intrusive route of administration when the lesser drug, dose and route have been ordered for the patient. This patient request must be documented in the MAR. If both oral and IV options are ordered for the same pain severity, give oral first unless patient cannot tolerate oral intake $ Given 01/20/2024 2:58 AM CDT 5 mg $ Given 01/19/2024 7:45 PM CDT 5 mg oxyCODONE (immediate release) (Roxicodone) tablet 5 mg 5 mg, Oral, EVERY 4 HOURS PRN, Moderate Pain, Severe Pain, Starting on Fri01/20/24 at 0800, Until Fri01/23/24 at 1856, Patient preference for lesser PRN pain meds may be honored when the patient requests a less strong medication, a lower dose, or a less intrusive route of administration when the lesser drug, dose and route have been ordered for the patient. This patient request must be documented in the MAR. If both oral and IV options are ordered for the same pain severity, give oral first unless patient cannot tolerate oral intake $ Given 01/21/2024 6:14 PM CDT 5 mg $ Given 01/21/2024 8:35 AM CDT 5 mg $ Given 01/20/2024 5:29 PM CDT 5 mg polyethylene glycol 3350 (Miralax) packet 17 g 17 g, Oral, DAILY, First dose on Fri01/19/24 at 1800, Until Discontinued, Mix in 8 ounces of water, juice, soda, coffee or tea prior to administration $ Given 01/23/2024 8:11 AM CDT 17 g $ Given 01/22/2024 8:58 AM CDT 17 g $ Given 01/21/2024 8:35 AM CDT 17 g posaconazole (Noxafil) tablet 300 mg 300 mg, Oral, DAILY WITH DINNER, First dose on Fri01/19/24 at 1800, Until Discontinued, Swallow whole. Do not crush, chew, or cut in half., Indication for anti-infective therapy: Suspected infection, Site of anti-infective therapy: Other, Other site of infection (free text): none $ Given 01/22/2024 5:38 PM CDT 300 mg $ Given 01/21/2024 6:13 PM CDT 300 mg $ Given 01/20/2024 5:28 PM CDT 300 mg potassium chloride ER (Klor-Con M) tablet 20 mEq 20 mEq, Oral, ONCE, 1 dose, On Fri01/22/24 at 0830, Do not crush or chew. $ Given 01/22/2024 8:58 AM CDT 20 mEq potassium chloride ER (Klor-Con M) tablet 40 mEq 40 mEq, Oral, ONCE, 1 dose, On Fri01/23/24 at 0900, Do not crush or chew. $ Given 01/23/2024 8:57 AM CDT 40 mEq senna (Senokot) tablet 8.6 mg 8.6 mg, Oral, DAILY, First dose on Fri01/20/24 at 1430, Until Discontinued $ Given 01/23/2024 8:11 AM CDT 8.6 mg $ Given 01/22/2024 8:58 AM CDT 8.6 mg $ Given 01/21/2024 8:35 AM CDT 8.6 mg tbo-filgrastim (Granix) prefilled syringe 480 mcg 480 mcg, Subcutaneous, DAILY, 5 doses, First dose on Fri01/20/24 at 1330, Last dose on Fri01/24/24 at 1000 $ Given 01/23/2024 8:58 AM CDT 480 mcg Abdominal Tissue $ Given 01/22/2024 5:38 PM CDT 480 mcg Ab dominal Tissue $ Given 01/21/2024 6:13 PM CDT 480 mcg Ab dominal Tissue throat lozenge 1 lozenge 1 lozenge, Oral, EVERY 2 HOURS PRN, Sore Throat, Starting on Fri01/21/24 at 1431, Until Fri01/23/24 at 1856 $ Given 01/21/2024 6:15 PM CDT 1 lozenge $ Given 01/21/2024 2:35 PM CDT 1 lozenge valACYclovir (Valtrex) tablet 500 mg 500 mg, Oral, 2 TIMES DAILY, First dose on Fri01/19/24 at 2100, Until Discontinued, Indication for anti-infective therapy: Risk of Infection $ Given 01/23/2024 8:11 AM CDT 500 mg $ Given 01/22/2024 8:42 PM CDT 500 mg $ Given 01/22/2024 8:58 AM CDT 500 mg vancomycin (Vancocin) 2,500 mg in 550 mL IVPB 2,500 mg, at 220 mL/hr, Intravenous, ONCE, 1 dose, On Fri01/19/24 at 1730, Indication for anti-infective therapy: Documented infection, Site of anti-infective therapy: Intra-abdominal $ New Bag/Syringe 01/19/2024 5:32 PM CDT 2,500 mg 220 mL/hr documented in this encounter Active and Recently Administered Medications Times are shown in CDT. Scheduled Medication Order 01/21/2024 01/22/2024 01/23/2024 0.9% NaCl injection 3 mL(Linked Group 1) 3 mL, Intracatheter, EVERY 8 HOURS, First dose on Fri01/19/24 at 1715, Until Discontinued, Flush peripheral IV catheter with 3 mL of normal saline every 8 hours. 0500 ($ Given - Provider: Valentín Mckeon RN)1328 ($ Given - Provider: Ce Stafford, CORRIE) 0021 (Canceled Entry - Provider: Marly Wharton RN)0645 (Canceled Entry - Provider: Marly Wharton RN)1443 (Canceled Entry - Provider: Gui Edwards RN)2139 (Canceled Entry - Provider: Marly Wharton RN) 0523 ($ Given - Provider: Marly Wharton RN)1309 ($ Given - Provider: Trinidad Cedillo RN) cefepime (Maxipime) 2,000 mg in 0.9% NaCl IV 50 mL IVPB 2,000 mg (2 g), at 100 mL/hr, Intravenous, EVERY 8 HOURS, First dose on Fri01/19/24 at 1730, Until Discontinued, Indication for anti-infective therapy: Documented infection, Site of anti-infective therapy: Intra-abdominal 0306 ($ New Bag/Syringe - Provider: Valentín Mckeon RN)0336 (Stopped - Provider: Valentín Mckeon RN)1102 ($ New Bag/Syringe - Provider: Ce Stafford RN)1132 (Stopped - Provider: Ce Stafford RN)1820 ($ New Bag/Syringe - Provider: Ce Stafford RN)1849 (Stopped - Provider: Ce Stafford RN)1849 (Stopped - Provider: Ce Stafford RN)1850 (Stopped - Provider: Ce Stafford RN) 0403 ($ New Bag/Syringe - Provider: Marly Wharton RN)0424 (Stopped - Provider: Marly Wharton RN)1057 ($ New Bag/Syringe - Provider: Gui Edwards RN)1126 (Stopped - Provider: Gui Edwards RN)2043 ($ New Bag/Syringe - Provider: Marly Wharton RN)2128 (Stopped - Provider: Marly Wharton RN) 0522 ($ New Bag/Syringe - Provider: Marly Wharton RN)0602 (Stopped - Provider: Marly Wharton RN)1311 ($ New Bag/Syringe - Provider: Trinidad Cedillo RN)1343 (Rate Change - Provider: Trinidad Cedillo RN)1348 (Stopped - Provider: Trinidad Cedillo RN) diltiaZEM 2% ointment Topical, 2 TIMES DAILY, First dose on Fri01/21/24 at 1415, Until Discontinued, Apply sufficient quantity to anal fissure twice daily Compounded by pharmacy 1646 ($ Given - Provider: Ce Stafford RN)2118 (Not Administered - Provider: Marly Wharton RN - Reason: Refused-Patient) 0858 ($ Given - Provider: Gui Edwards RN)2043 ($ Given - Provider: Marly Wharton RN) 0811 ($ Given - Provider: Trinidad Cedillo, RN) docusate sodium (Colace) capsule 100 mg (CANCELED) 100 mg, Oral, DAILY, First dose on Fri01/20/24 at 1430, Until Discontinued 0835 ($ Given - Provider: Ce Stafford RN) 0858 ($ Given - Provider: Gui Edwards RN) 0811 ($ Given - Provider: Trinidad Cedillo, RN) metroNIDAZOLE (Flagyl) tablet 500 mg 500 mg, Oral, EVERY 8 HOURS, First dose on Fri01/19/24 at 1800, Until Discontinued, May take with food or milk., Indication for anti-infective therapy: Suspected infection, Site of anti-infective therapy: Intra-abdominal 0459 ($ Given - Provider: Valentín Mckeon RN)1327 ($ Given - Provider: Ce Stafford RN)2118 ($ Given - Provider: Marly Wharton RN) 0643 ($ Given - Provider: Marly Wharton RN)1441 ($ Given - Provider: Gui Edwards RN)2042 ($ Given - Provider: Marly Wharton RN) 0523 ($ Given - Provider: Marly Wharton RN)1309 ($ Given - Provider: Trinidad Cedillo, RN) polyethylene glycol 3350 (Miralax) packet 17 g (CANCELED) 17 g, Oral, DAILY, First dose on Fri01/19/24 at 1800, Until Discontinued, Mix in 8 ounces of water, juice, soda, coffee or tea prior to administration 0835 ($ Given - Provider: Ce Stafford RN) 0858 ($ Given - Provider: Gui Edwards RN) 0811 ($ Given - Provider: Trinidad Cedillo, CORRIE) posaconazole (Noxafil) tablet 300 mg 300 mg, Oral, DAILY WITH DINNER, First dose on Fri01/19/24 at 1800, Until Discontinued, Swallow whole. Do not crush, chew, or cut in half., Indication for anti-infective therapy: Suspected infection, Site of anti-infective therapy: Other, Other site of infection (free text): none 1813 ($ Given - Provider: Ce Stafford RN) 1738 ($ Given - Provider: Gui Edwards RN) potassium chloride ER (Klor-Con M) tablet 20 mEq (COMPLETED) 20 mEq, Oral, ONCE, 1 dose, On Fri01/22/24 at 0830, Do not crush or chew. 0858 ($ Given - Provider: Gui Edwards RN) potassium chloride ER (Klor-Con M) tablet 40 mEq (COMPLETED) 40 mEq, Oral, ONCE, 1 dose, On Fri01/23/24 at 0900, Do not crush or chew. 0857 ($ Given - Provider: Trinidad Cedillo, CORRIE) senna (Senokot) tablet 8.6 mg (CANCELED) 8.6 mg, Oral, DAILY, First dose on Fri01/20/24 at 1430, Until Discontinued 0835 ($ Given - Provider: Ce Stafford RN) 0858 ($ Given - Provider: Gui Edwards RN) 0811 ($ Given - Provider: Trinidad Cedillo, CORRIE) tbo-filgrastim (Granix) prefilled syringe 480 mcg 480 mcg, Subcutaneous, DAILY, 5 doses, First dose on Fri01/20/24 at 1330, Last dose on Fri01/24/24 at 1000 1813 ($ Given - Provider: Ce Stafford RN) 1738 ($ Given - Provider: Gui Edwards RN) 0858 ($ Given - Provider: Trinidad Cedillo, CORRIE) valACYclovir (Valtrex) tablet 500 mg 500 mg, Oral, 2 TIMES DAILY, First dose on Fri01/19/24 at 2100, Until Discontinued, Indication for anti-infective therapy: Risk of Infection 0835 ($ Given - Provider: Ce Stafford RN)2118 ($ Given - Provider: Marly Wharton, RN) 0858 ($ Given - Provider: Gui Edwards, CORRIE)2041 ($ Given - Provider: Marly Wharton, CORRIE) 0811 ($ Given - Provider: Trinidad Cedillo, CORRIE) PRN Medication Order 01/21/2024 01/22/2024 01/23/2024 0.9% NaCl injection 1-10 mL(Linked Group 1) 1-10 mL, Intracatheter, PRN, Other, peripheral line flush, Starting on 01/19/24 at 1641, Until Fri01/23/24 at 1856, Flush peripheral IV catheter with 1-10 mL of normal saline before and after medications and prn to clear blood from the line or to verify patency. diazePAM (Valium) tablet 5 mg 5 mg, Oral, 3 TIMES DAILY PRN, Other, Rectal PAIN, Starting on Fri01/21/24 at 1051, Until Fri01/23/24 at 1856 0054 ($ Given - Provider: Marly Wharton RN)0857 ($ Given - Provider: Gui Edwards, CORRIE)1801 ($ Given - Provider: Gui Edwards, CORRIE) diphenhydrAMINE (Benadryl) capsule 50 mg 50 mg, Oral, AT BEDTIME PRN, Itching, Starting on Fri01/19/24 at 2046, Until Fri01/23/24 at 1856 0004 ($ Given - Provider: Valentín Mckeon RN) ihvazcfktlLTWHB-DEXDJLCRO-he um/mag/simethicone 1:1:1 (First Mouthwash BLM) suspension 5 mL 5 mL, Swish and Spit, EVERY 6 HOURS PRN, Sore Throat, Starting on Ally 01/22/24 at 0023, Until Fri01/23/24 at 1856, Equivalent to Benadryl, Lidocaine 2% viscous, Maalox, 1:1:1 ratio 0039 ($ Given - Provider: Marly Wharton RN) morphine injection 2 mg 2 mg, Intravenous, EVERY 4 HOURS PRN, Severe Pain, Moderate Pain, Starting on Fri01/19/24 at 1652, Until Fri01/23/24 at 1856, For use if oral option ineffective or unable to be given. Patient preference for lesser PRN pain meds may be honored when the patient requests a less strong medication, a lower dose, or a less intrusive route of administration when the lesser drug, dose and route have been ordered for the patient. This patient request must be documented in the MAR. If both oral and IV options are ordered for the same pain severity, give oral first unless patient cannot tolerate oral intake 0003 ($ Given - Provider: Valentín Mckeon RN)0458 ($ Given - Provider: Valentín Mckeon RN)0929 ($ Given - Provider: Ce Stafford RN)1327 ($ Given - Provider: Ce Stafford RN)1852 ($ Given - Provider: Ce Stafford RN) 0053 ($ Given - Provider: Marly Wharton RN) oxyCODONE (immediate release) (Roxicodone) tablet 5 mg 5 mg, Oral, EVERY 4 HOURS PRN, Moderate Pain, Severe Pain, Starting on Fri01/20/24 at 0800, Until Fri01/23/24 at 1856, Patient preference for lesser PRN pain meds may be honored when the patient requests a less strong medication, a lower dose, or a less intrusive route of administration when the lesser drug, dose and route have been ordered for the patient. This patient request must be documented in the MAR. If both oral and IV options are ordered for the same pain severity, give oral first unless patient cannot tolerate oral intake 0835 ($ Given - Provider: Ce Stafford RN)1814 ($ Given - Provider: Ce Stafford RN) throat lozenge 1 lozenge 1 lozenge, Oral, EVERY 2 HOURS PRN, Sore Throat, Starting on Fri01/21/24 at 1431, Until Fri01/23/24 at 1856 1435 ($ Given - Provider: Ce Stafford RN)1815 ($ Given - Provider: Ce Stafford RN) Linked Groups Order Group 1: SALINE LOCK, INSERT AND MAINTAIN (CANCELED) Routine, CONTINUOUS, Starting on Fri01/19/24 at 1645, Until Specified, New collection And 0.9% NaCl injection 3 mLJump to med 3 mL, Intracatheter, EVERY 8 HOURS, First dose on Fri01/19/24 at 1715, Until Discontinued, Flush peripheral IV catheter with 3 mL of normal saline every 8 hours. And 0.9% NaCl injection 1-10 mLJump to med 1-10 mL, Intracatheter, PRN, Other, peripheral line flush, Starting on 01/19/24 at 1641, Until Fri01/23/24 at 1856, Flush peripheral IV catheter with 1-10 mL of normal saline before and after medications and prn to clear blood from the line or to verify patency. documented in this encounter Care Teams Technical Sales Specialist Relationship Specialty Start Date End Date Nilam Mayers MD [address] [place] [phone] PCP - General Family Medicine 09/04/23 04/18/24 documented as of this encounter
--- OUTSIDE RECORDS SUMMARY | 2024-08-31 21:27 | XMS_ITS | Encounter Summary ---
Author Organization [facility] Address [address] [place], [place] [address] [address] Care Team Providers Care Fruit Cutter Name Role Phone Nilam Mayers MD Primary Care Provider [phone] Reason for Visit * Auth/Cert (Routine) Specialty Diagnoses / Procedures Referred By Contac t Referred To Contact Diagnoses AML Referral ID Status Reason Start Date Expiration Date Visits Re quested Visits Authorized [id number] 1 1 Encounter Details Date Type Department Care Team (Latest Contact Info) Description 12/30/2023 4:44 PM CDT - 01/04/2024 1:45 PM CDT Hospital Encounter [facility] 7N ACUTE [address] [place] [address] Hussain Carias MD [address] [place] [address] Cheryl Cronin MD [address] [place] [address] Dawn Dias MD [address] [place] [address] Mauro Canales MD [address] [place] [address] [place] [address] Hospitalist Discharge Disposition: Home or Self Care Social [...] and heating? Not hard at all 12/30/2023 [facility] [place] [facility] - Occupational Stress [...] or slept in a assisted (including now)? Yes 12/30/2023 Sex and Gender Information Value Date Recorded Sex Assigned at Not on file Gender Identity Female 02/13/2024 1:12 PM CDT Sexual Orientation Not on file documented as of this encounter Last Filed Vital Signs Vital Sign Reading Time Taken Comments Blood Pressure 126/88 01/04/2024 1:37 PM CDT Pulse 68 01/04/2024 1:37 PM CDT Temperature 36.4 ??C (97.6 ??F) 01/04/2024 1:37 PM CD T Respiratory Rate 20 01/04/2024 1:37 PM CDT Oxygen Saturation 100% 01/04/2024 1:37 PM CDT Inhaled Oxygen Concentration - - Weight 108 kg (238 lb 3.2 oz) 01/03/2024 3:49 AM CDT Height 157.5 cm (5' 2 ) 12/30/2023 4:50 PM CDT Body Mass Index 43.57 12/30/2023 4:50 PM CDT documented in this [...] No 12/30/2023 documented as of this encounter Discharge Summaries * Marshall ApodacaZACH-PRINTING PRESS MACHINE OPERATOR - 01/04/2024 1:17 PM CDT Hospital Discharge Summary Patient ID: Sarah Mckeon [id number] 38 year old 1985 Admit date: 12/30/2023 Discharge date: 01/04/24 Admitting Physician: Hussain Carias MD Discharge Physician: Mauro Canales MD Present on Admission: ??? Acute myeloid leukemia in remission (HCC) ??? Pancytopenia due to chemotherapy (HCC) ??? IIH (idiopathic intracranial hypertension) ??? Tachycardia Discharge Diagnoses: ?? AML in remission (dx'd 08/2023) ?? Pancytopenia ?? s/p fall during hospitalization (12/31/23) ?? h/o SAH (09/2023) ?? Multilayered retinal hemorrhages ?? Papilledema ?? Type 2 Diabetes Mellitus ?? Hyperglycemia Admission Condition: stable Discharged Condition: stable Indication for Admission: chemotherapy cycle, blood transfusion Hospital Course: Sarah Mckeon is a 38 year old female with past medical history of AML, multilayered retinal hemorrhages, and DM who presented for cycle 4 of HiDAC with hematology/oncology. She tolerated treatment well, and received 1u PRBC prior to discharge 01/03 per heme/onc recs. She has appointments this week with heme/onc including lab draws already in place (01/06). Discharged home. Consults: Hematology/Oncology Significant Diagnostic Studies: CBC: Recent Labs Lab Units 01/03/24212701/02/24205101/01/24211712/30/23203412/30/23 1104 WBC x10E9/L 2.5* 2.9* 3.6* < > -- RBC x10E12/L 2.53* 2.63* 2.80* < > -- HGB g/dL 7.1* 7.4* 7.9* < > -- HCT % 20.0* 21.1* 22.4* < > -- PLT x10E9/L -- -- -- -- 34* < > = values in this interval not displayed. BMP: Recent Labs Lab Units 01/03/24212701/02/24205101/01/242117 NA mmol/L 139 139 138 CL mmol/L 107 108* 106 CO2 mmol/L 23 24 23 BUN mg/dL 20 18 18 CREATININE mg/dL 0.75 0.73 0.74 CALCIUM mg/dL 9.6 9.4 9.9 Magnesium: No results for input(s): MG in the last 168 hours. Phosphorus: Recent Labs Lab Units 01/03/24212701/02/24205101/01/242117 PHOS mg/dL 4.3 3.9 3.5 Coagulation: No results for input(s): PT , INR , APTT in the last 168 hours. Endocrine: No results for input(s): TSH , A1C in the last 168 hours. LFTs: Recent Labs Lab Units 01/03/24212701/02/24205101/01/242117 AST U/L 31 14 26 ALT U/L 49 35 45 TBILI mg/dL 0.6 0.5 0.4 ALB g/dL 3.[address] HEAD WO CONTRAST Result Date: 01/01/2024 IMPRESSION: 1. No acute intracranial process. Report dictated by Haleigh Mosquera MD (resident service coordinator). I, Romie Sanchez MD have personally reviewed and interpreted this examination/study. > Interpreting Provider: Romie Sanchez MD on 01/01/2024 11:21 AM Discharge Exam: Blood pressure 112/77, pulse 73, temperature 98.3 ??F (36.8 ??C), temperature source Oral, resp. rate 20, height 1.575 m (5' 2 ), weight 108 kg (238 lb 3.2 oz), SpO2 100%. Physical Exam Vitals reviewed. Patient awake and alert sitting on couch using computer, NAD. HENT: Head: Normocephalic and atraumatic. Ears: Hearing intact to voice Eyes: General: No scleral icterus. Extraocular Movements: Extraocular movements intact. Cardiovascular: Rate and Rhythm: Normal rate and regular rhythm. Heart sounds: No friction rub. No gallop. Pulmonary: Effort: Pulmonary effort is normal. Breathing room air. Breath sounds: Normal breath sounds, with good aeration bilaterally. Abdominal: General: Bowel sounds are normal. Palpations: Abdomen is soft. Tenderness: There is no abdominal tenderness. There is no guarding. Musculoskeletal: Cervical back: Normal range of motion. No rigidity. Right lower leg: No edema. Left lower leg: No edema. Skin: General: Skin is warm and dry. Coloration: Skin is not jaundiced. Neurological: General: No focal deficit present. Mental Status: She is alert and oriented to person, place, and time. Mental status is at baseline. Psychiatric: Mood and Affect: Mood normal. Pleasant. Behavior: Behavior normal. Thought Content: Thought content normal. Disposition: Home Patient Instructions: Medication List START taking these medications dexAMETHasone 0.1 % ophthalmic suspension Commonly known as: Decadron Instill 2 (two) drops into both eyes 4 times daily CONTINUE taking these medications ARTIFICIAL TEARS OP famotidine 20 MG tablet Commonly known as: Pepcid Take 1 (one) tablet by mouth 2 times daily medroxyPROGESTERone 150 MG/ML vial Commonly known as: Depo-Provera posaconazole 100 MG tablet Commonly known as: Noxafil Take 3 (three) tablets by mouth daily with dinner potassium chloride ER 10 MEQ tablet Take 2 (two) tablets by mouth once daily valACYclovir 500 MG tablet Commonly known as: Valtrex Take 1 (one) tablet by mouth 2 times daily ASK your doctor about these medications levoFLOXacin 500 MG tablet Commonly known as: Levaquin Take 1 (one) tablet by mouth once daily ondansetron 8 MG tablet Commonly known as: Zofran Take one tablet by mouth twice a day 1 hour before midostaurin on days 8 to 21 and one tablet every12 hours as needed for breakthrough nausea/vomiting. Reasons: Nausea and Vomiting caused by Cancer Chemotherapy prochlorperazine 10 MG tablet Commonly known as: Compazine Where to Get Your Medications Information about where to get these medications is not yet available Ask your nurse or doctor about these medications ?? dexAMETHasone 0.1 % ophthalmic suspension Follow-up Information Nilam Mayers MD . Specialty: Family Medicine Contact information: [address] [facility] [address] Discharge Instructions Sarah Mckeon, You were admitted for your 4th cycle of chemotherapy, which you tolerated well. You received 1 unitof blood today (01/03) prior to discharging home, and have a follow up appointment already scheduled (see below) on Friday with a lab draw. See below for heme/onc medication regimen, you already have your meds at home. Thank you for allowing us to participate in your care. Hematology/oncology discharge meds (no prescriptions need to be sent): -Levaquin 500 mg qday x 10 days (already has enough at home) -Posaconazole 400 mg qday x 10 days (already has enough at home) -Continue home Valtrex 500 mg BID (already has enough at home) -Decadron eye drops 0.1% suspension 2 drops QID until 01/06 (Fri) afternoon (on discharge, nursing can give pt the remainder of the bottle currently being used inpatient) Hematology/oncology Clinic f/u details: -Appt in heme/onc clinic is scheduled for 01/06 -Will have MWF labs done in heme/onc clinic (our clinic will take care of the orders) FOLLOW-UP: Please follow-up with your PCP within 7-14 DAYS NORMAL RISK READMISSION days of discharge. Please also make sure to attend the following appointments: Future Appointments Sunday January 07, 2024 9:00 AM Appointment with Britni Winston; [facility] ([phone]) [address] [facility] [address] Tuesday January 09, 2024 9:30 AM Appointment with Britni Winston; [facility] ([phone]) [address] [facility] [address] It is essential that you keep all of your follow-up appointments and go to your doctors appointments as scheduled. If there is a conflict, please call the clinic ahead of time and reschedule the appointment. DISCHARGE MEDICATIONS: You were discharged on the medications listed in this printout. Make sure to take them exactly as prescribed. If you have any questions about your medications, please be sure to ask the pharmacy when you filling and packing supervisor your prescription. You may also call your primary provider if you are uncertain whether you should be taking your medication. If you need to call [facility] for any reason, you may reach us at [phone] and dial [phone] for the pad making machine operator. CONCERNING SYMPTOMS: When to call your healthcare provider: Call your healthcare provider immediately if you have any of the following: - Fever of 100??F (38??C) or higher - Shaking chills - Intractable nausea and vomiting - Severe headache - Confusion/altered mental status - Seizures (convulsions) - Weakness in arms/legs - Dizziness If you are unable to reach your primary provider, please go to the nearest emergency room or call EMS [phone]). Thanks! Internal Medicine Department [facility] [address] [place], [place] [id number] Signed: Marshall Apodaca APRN-CHU 01/04/2024 Time spent on discharge: 45 minutes. Time was spent on preparation of reviewing chart, prescriptions, counseling patient, working with social work and nursing, discussion with family, documentation. Associated attestation - Mauro Canales MD - 01/04/2024 4:37 PM CDT I have personally and independently examined the patient and reviewed the chart and all pertinent data including imaging and labs. I agree with the Advanced Practic Provider with the note and treatment plan for this patient. documented in this encounter Discharge Instructions * Discharge Instructions* Marshall Apodaca APRN-PRINTING PRESS MACHINE OPERATOR - 01/03/2024 8:19 AM CDT Sarahmarisa Mckeon, You were admitted for your 4th cycle of chemotherapy, which you tolerated well. You received 1 unitof blood today (01/03) prior to discharging home, and have a follow up appointment already scheduled (see below) on Friday with a lab draw. See below for heme/onc medication regimen, you already have your meds at home. Thank you for allowing us to participate in your care. Hematology/oncology discharge meds (no prescriptions need to be sent): -Levaquin 500 mg qday x 10 days (already has enough at home) -Posaconazole 400 mg qday x 10 days (already has enough at home) -Continue home Valtrex 500 mg BID (already has enough at home) -Decadron eye drops 0.1% suspension 2 drops QID until 01/06 (Fri) afternoon (on discharge, nursing can give pt the remainder of the bottle currently being used inpatient) Hematology/oncology Clinic f/u details: -Appt in heme/onc clinic is scheduled for 01/06 -Will have MWF labs done in heme/onc clinic (our clinic will take care of the orders) FOLLOW-UP: Please follow-up with your PCP within 7-14 DAYS NORMAL RISK READMISSION days of discharge. Please also make sure to attend the following appointments: Future Appointments Sunday January 07, 2024 9:00 AM Appointment with Britni Winston; [facility] ([phone]) [address] [facility] [address] Tuesday January 09, 2024 9:30 AM Appointment with Britni Winston; [facility] ([phone]) [address] [facility] [address] It is essential that you keep all of your follow-up appointments and go to your doctors appointments as scheduled. If there is a conflict, please call the clinic ahead of time and reschedule the appointment. DISCHARGE MEDICATIONS: You were discharged on the medications listed in this printout. Make sure to take them exactly as prescribed. If you have any questions about your medications, please be sure to ask the pharmacy when you filling and packing supervisor your prescription. You may also call your primary provider if you are uncertain whether you should be taking your medication. If you need to call [facility] for any reason, you may reach us at [phone] and dial [phone] for the pad making machine operator. CONCERNING SYMPTOMS: When to call your healthcare provider: Call your healthcare provider immediately if you have any of the following: - Fever of 100??F (38??C) or higher - Shaking chills - Intractable nausea and vomiting - Severe headache - Confusion/altered mental status - Seizures (convulsions) - Weakness in arms/legs - Dizziness If you are unable to reach your primary provider, please go to the nearest emergency room or call EMS ([phone]). Thanks! Internal Medicine Department [address] [address] documented in this encounter Medications at Time of Discharge Medication Sig Dispensed Refills Start Date End Date Carboxymethylcellulo se Sodium (ARTIFICIAL TEARS OP) famotidine (Pepcid) 20 MG tabletIndications:To nsillitis Take 1 (one) tablet by mouth 2 times daily 60 tablet 1 10/17/2023 dexAMETHasone (Decadron) 0.1 % ophthalmic suspensionIndication s:Acute myeloid leukemia in remission (HCC) Instill 2 (two) drops into both eyes 4 times daily 01/04/2024 01/07/2024 levoFLOXacin (Levaquin) 500 MG tablet Take 1 [...] as of this encounter Progress Notes * Shahzad Tinoco MD - 01/04/2024 11:42 AM CDT Images from the original note were not included. HEMATOLOGY/ONCOLOGY INPATIENT PROGRESS NOTE Name: Sarah Mckeon Age: [age] year old Date of : 1985 Date of Service: 01/04/2024 HEMATOLOGY & ONCOLOGY HISTORY Principal Diagnosis: AML w/ NPM-1 mutation Current Therapy: C4D4 HiDAC consolidation Prior Hematology/Oncology History: Acute myeloid leukemia in remission (HCC) 09/03/2023 Initial Diagnosis 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 ([facility]) 09/06/2023 - Chemotherapy cytarabine (Cytosar) 460 [...] edema on exam-- to prevent vision loss. Active Treatment Days for Sarah Mckeon (until 01/01/2024) 12/30/2023 ONCOLOGY TREATMENT: IP AML CONSOLIDATION - AGE <60 (HIGH DOSE CYTARABINE)(SANDHU HIDAC) Day 1, Cycle 4 (Started) Pre-Medications: ondansetron (Zofran) injection 8 mg, ondansetron (Zofran) injection 8 mg, dexAMETHasone Sod Phosphate PF injection 8 mg Chemotherapy: cytarabine (Cytosar) 6,700 mg in 0.9% NaCl IV 597 mL infusion, cytarabine (Cytosar) 6,700 mg in 0.9% NaCl IV 597 mL infusion Supportive Care: dexAMETHasone (Decadron) 0.1 % ophthalmic suspension 2 drop, dexAMETHasone (Decadron) 0.1 % ophthalmic suspension 2 drop, famotidine (Pepcid) tablet 20 mg, prochlorperazine (Compazine) tablet 10 mg, prochlorperazine (Compazine) injection 5 mg, ondansetron (disintegrating) (Zofran ODT) tablet 8 mg, ondansetron (Zofran) injection 8 mg, valACYclovir (Valtrex) tablet 500 mg 01/01/2024 ONCOLOGY TREATMENT: IP AML CONSOLIDATION - AGE <60 (HIGH DOSE CYTARABINE)(SANDHU HIDAC) Day 3, Cycle 4 (Planned) Pre-Medications: ondansetron (Zofran) injection 8 mg, dexAMETHasone Sod Phosphate PF injection 8 mg Chemotherapy: cytarabine (Cytosar) 6,700 mg in 0.9% NaCl IV 567 mL infusion History of Present Illness Chief Complaint: Here for Cycle 4 HIDAC for AML Hospital Course: Sarah Mckeon is a 38 year old female with AML w/ NPM-1 mutation (favorable) diagnosed in 09/06, s/p induction 7+3 and 2x consolidation therapies, here for cycle 4 of HiDAC treatment. Per patient presented [facility] 08/2023 with flu/ cold like symptoms ( chills, fever, fatigue), infectious work up neg, during work up bone marrow biopsy performed revealing 78% blasts on marrow and flow cytometry confirmed NPM1 mutation, transferred to [facility] for induction therapy, after which repeat BMB 10/01/23 showed remission of disease. Underwent 2x consolidation therapies during herlast admission hospital course c/b retinal hemorrhage and increased intracranial pressure, and a SAH that resolved on repeat imaging w/ MRI. Per pt during cycle 2 in early 11/2022 she experience mildtremor in R hand and R leg for 5 minutes that self resolved w/o intervention and no nausea after completing induction. Had a fall on night of 12/31 ~1am, reaching over for eye drops that fell on the ground, after this had a syncopal episode, brief fainting for ~5 mins, woke up with blood in her mouth from her L upper molar area, bleeding resolved spontaneously after pt applied pressure, hgb drop from 7.3 to 6.6, plt 41, received 1U prbc, hgb stable post fall, Head CT no hemorrhage or acute abnormalities -risk factors for AML reviewed, no hx of radiation or benzene exposure, however past tobacco use 16pack year hx (2ppd for 8 years, quit 2010) Interval History: -no acute events overnight, ready for discharge today Review of Systems: As noted in HPI. All other systems reviewed and negative. Past Medical & Surgical History Patient Active Problem List Diagnosis ??? Tachycardia ??? Pseudotumor cerebri ??? Hypernatremia [...] Section ??? Cholecystectomy ??? KIDNEY STONES, REMOVAL Social History 2ppd for ~8 years, quit in 2010 when patient became , ~16 pack year hx Occasional etoh on holidays, Denies marijuana, cocaine and heroin use Lives with partner, daughter (age 11) and step son (21) Social History Tobacco Use ??? Smoking status: Former Packs/day: 1 Types: Cigarettes Start date: 2004 Quit date: 2010 Years since quittin.3 ??? Smokeless tobacco: Never Substance Use Topics ??? Alcohol use: Yes Comment: occasional Family History Family History Family history unknown: Yes father is adopted, his biological father at young age of a cancer unknown what kind Pt not in touch with her mother since age 7 Medications SCHEDULED MEDICATIONS: 0.9% NaCl injection 3 mL, Intracatheter, q8h dexAMETHasone (Decadron) 0.1 % ophthalmic suspension 2 drop, Each Eye, 4X/DAY famotidine (Pepcid) tablet 20 mg, Oral, BID insulin aspart (NovoLOG) pen 0-4 Units, Subcutaneous, AT BEDTIME insulin aspart (NovoLOG) pen 0-6 Units, Subcutaneous, TID WC valACYclovir (Valtrex) tablet 500 mg, Oral, BID [COMPLETED] cytarabine (Cytosar) 6,700 mg in 0.9% NaCl IV 597 mL infusion, Intravenous, q12h [COMPLETED] ondansetron (Zofran) injection 8 mg, Intravenous, q12h Allergies No Known Allergies OBJECTIVE Physical Exam Vitals: 01/04/24 0001 01/04/24 0529 01/04/24 0749 01/04/24 1129 BP: 116/64 118/69 136/77 126/75 Pulse: 91 90 77 72 Resp: Temp: 98 ??F (36.7 ??C) 98.4 ??F (36.9 ??C) 97.8 ??F (36.6 ??C) SpO2: 98% 97% 97% 100% Weight: Height: Wt Readings from Last 3 Encounters: 01/03/24 108 kg (238 lb 3.2 oz) 12/30/23 108.7 kg (239 lb 11.2 oz) 12/24/23 107.6 kg (237 lb 3.2 oz) ECOG: General: Well-developed axo3. No acute distress. Head: Normocephalic, atraumatic. Eyes: [...] Musculoskeletal: No spinal tenderness or visible deformity. Skin: Warm, dry. No rash. Neurologic: Alert, oriented. No gross focal neurologic deficits. Psychiatric: Cooperative. Appropriate mood and affect. Laboratory Results Reviewed Pathology Results Personally reviewed and summarized above in Hematology & Oncology History Radiology Results Personally reviewed and summarized above in Hematology & Oncology History Reviewed ASSESSMENT Sarah Mckeon is a 38 year old female with AML w/ NPM-1 mutation (favorable) diagnosed in 09/06, s/p induction 7+3 and 2x consolidation therapies, here for cycle 4 of HiDAC treatment. 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 She is in molecular remission from AML standpoint. Plan is to complete 4 cycles of HiDAC consolidation. No more IT treatment planned. - Labs reviewed. Hgb 6.6 overnight received 1U prb on 12/31 (hgb drop after 1x fall 4/`8 night) -post fall head CT no acute intracranial pathology, no intracranial hemorrhage PLAN: -Cycle 4 Day 6 HiDAC consolidation - Continue ppx with valtrex 500mg BID -Please note pt has home Levaquin, posaconazole and valtrex supply already -pt will take current bottle of dexamethasone ophthalmic drops home with her to complete 72 hrs post-last dose of HiDAC -had clinic f/u w/ Britni [facility] onc clinic Saturday 01/06, with labs M/W/ for monitoring -Ready for discharge after treatment today TRANSFUSION parameters: - pRBC transfusion if hgb drops below [...] after completing platelet transfusion to assess response. ?? # Multilayered retinal Hemorrhages BL #hx of papilledema w/ elevated ICP now resolved - attributed to retinal hemorrhage and not chemotherapy, eval by optho last hospitalization - Asymptomatic today, still using dexa eye drops while on HIDAC - s.p acetazolamide 500mg BID tx, discontinued due to metabolic acidosis, continued PFATs (Preservative-Free Artificial Tears) - had gritty feeling in eyes / floaters -LP 10/06/23 showed elevated opening pressures, meningitis ruled out Plan: - Per ophtho will follow up as an outpatient. Next f/u 12/[address] Hobson, will need to reschedule ? - Continue dexamethasone eye drops during HiDAC cycles - Artificial tears QID while inpatient. ?? #Vaginal Bleeding -??Medroxyprogesterone??pill discontinued 2/2 concern for IIH. Confirmed with patient that she is not taking it. -reports last vaginal spotting 1 month ago, none currently - CTM - Next medroxyprogesterone injection due week of 01/05/24. ?? Plan discussed with Dr. Lebron. Shahzad Tinoco Hem/onc fellow Associated attestation - Jose Martin Lebron MD - 01/04/2024 11:53 AM CDT Attending Physician Supervisory Note Oncology History Acute myeloid leukemia in remission (HCC) 09/03/2023 Initial Diagnosis 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 ([facility]) 09/06/2023 - Chemotherapy cytarabine (Cytosar) 460 [...] - Chemotherapy C4D1 HiDAC (final anticipated cycle) I personally interviewed and examined the patient and agree with the doctor above. Jose Martin Lebron MD * Sasha Mora RN - 01/04/2024 5:41 AM CDT Problem: Fall Risk Goal: Fall risk and fall related injury risk are minimized (interventions related to the fall risk can be found in the flowsheet documentation) Outcome: Progressing Problem: Pain/Discomfort Goal: Patient exhibits reduced pain/discomfort as evidenced by pain scores Outcome: Progressing Goal: Patient uses pharmacological and non-pharmacological pain management strategies. Outcome: Progressing Goal: Patient verbalizes acceptable level of pain relief and ability to engage in desired activity. Outcome: Progressing * Marshall Apodaca APRN-PRINTING PRESS MACHINE OPERATOR - 01/03/2024 1:49 PM CDT Daily Progress Note Hospital Medicine Name: Sarah Mckeon Age: [age] year old Room: 709/ Date Admitted: 12/30/2023 Hospital Course: Sarah Mckeon is a 38 year old female with past medical history of AML, multilayered retinal hemorrhages, and DM who presented for cycle 4 of HiDAC with hematology/oncology. Subjective: Patient seen awake and alert sitting up on couch working on her computer, breathing room air in no acute distress. Denies fever, chills, chest pain, shortness of breath. Denies acute or new complaints. Denies changes in bowel or bladder. Current Facility-Administered Medications Medication Dose Route Frequency Provider Last Rate Last Admin ??? 0.9% NaCl injection 3 mL 3 mL Intracatheter q8h Cheryl Cronin MD 10 mL at 12/31/23 1354 And ??? 0.9% NaCl injection 1-10 mL 1-10 mL Intracatheter PRN Cheryl Cronin MD 10 mL at 12/31/23 0927 ??? acetaminophen (Tylenol) tablet 500 mg 500 mg Oral q6h PRN Rogers Cazares PA-C 500 mg at 01/02/24 0843 ??? artificial tears ophthalmic solution 1 drop 1 drop Each Eye TID PRN Cheryl Cronin MD ??? cytarabine (Cytosar) 6,700 mg in 0.9% NaCl IV 597 mL infusion 3,000 mg/m2 (Treatment Plan Recorded) Intravenous q12h Remington Stafford MD 199 mL/hr at 01/03/24 1026 6,700 mg at 01/03/24 1026 ??? dexAMETHasone (Decadron) 0.1 % ophthalmic suspension 2 drop 2 drop Each Eye 4X/DAY Remington Stafford MD 2 drop at 01/03/24 0940 ??? dextrose 10 % IV bolus 12.5 g Intravenous PRN Rogers Cazares PA-C Or ??? dextrose 10 % IV bolus 25 g Intravenous PRN Rogers Cazares PA-C Or ??? glucagon (Glucagen) injection 1 mg 1 mg Subcutaneous PRN Rogers Cazares PA-C ??? famotidine (Pepcid) tablet 20 mg 20 mg Oral BID Remington Stafford MD 20 mg at 01/03/24 0941 ??? glucose (Diabetic Use) oral gel Oral PRN Rogers Cazares PA-C ??? insulin aspart (NovoLOG) pen 0-4 Units 0-4 Units Subcutaneous AT BEDTIME Rogers Cazares PA-C2 Units at 01/01/24 2211 ??? insulin aspart (NovoLOG) pen 0-6 Units 0-6 Units Subcutaneous TID WC Rogers Cazares PA-C 2 Units at 01/02/24 1810 ??? ondansetron (disintegrating) (Zofran ODT) tablet 8 mg 8 mg Oral BID PRN Remington Stafford MD ??? ondansetron (Zofran) injection 8 mg 8 mg Intravenous q12h Remington Stafford MD 8 mg at 01/03/24 0940 ??? ondansetron (Zofran) injection 8 mg 8 mg Intravenous BID PRN Remington Stafford MD ??? prochlorperazine (Compazine) injection 5 mg 5 mg Intravenous q4h PRN Remington Stafford MD ??? prochlorperazine (Compazine) tablet 10 mg 10 mg Oral q4h PRN Remington Stafford MD ??? valACYclovir (Valtrex) tablet 500 mg 500 mg Oral BID Remington Stafford MD 500 mg at 01/03/24 0941 Wt Readings from Last 3 Encounters: 01/03/24 108 kg (238 lb 3.2 oz) 12/30/23 108.7 kg (239 lb 11.2 oz) 12/24/23 107.6 kg (237 lb 3.2 oz) Vitals: BP 126/78 (BP Location: Right arm, Patient Position: Lying, BP Cuff Size: Adult) Pulse 78 Temp 97.9 ??F (36.6 ??C) (Oral) Resp 16 Ht 1.575 m (5' 2 ) Wt 108 kg (238 lb 3.2 oz) SpO2 98% Physical Exam Vitals reviewed. HENT: Head: Normocephalic and atraumatic. Ears: Comments: Hearing intact to voice Eyes: General: No scleral icterus. Extraocular Movements: Extraocular movements intact. Cardiovascular: Rate and Rhythm: Normal rate and regular rhythm. Heart sounds: No friction rub. No gallop. Pulmonary: Effort: Pulmonary effort is normal. Breath sounds: Normal breath sounds. Abdominal: General: Bowel sounds are normal. Palpations: Abdomen is soft. Tenderness: There is no abdominal tenderness. There is no guarding. Musculoskeletal: Cervical back: Normal range of motion. No rigidity. Right lower leg: No edema. Left lower leg: No edema. Skin: General: Skin is warm and dry. Coloration: Skin is not jaundiced. Neurological: General: No focal deficit present. Mental Status: She is alert and oriented to person, place, and time. Mental status is at baseline. Psychiatric: Mood and Affect: Mood normal. Behavior: Behavior normal. Thought Content: Thought content normal. Labs: CBC: Recent Labs Lab Units 01/02/24205101/01/24211712/31/23205312/30/23203412/30/23 1104 WBC x10E9/L 2.9* 3.6* 5.1 < > -- RBC x10E12/L 2.63* 2.80* 2.31* < > -- HGB g/dL 7.4* 7.9* 6.6* < > -- HCT % 21.1* 22.4* 19.1* < > -- PLT x10E9/L -- -- -- -- 34* < > = values in this interval not displayed. BMP: Recent Labs Lab Units 01/02/24205101/01/24211712/31/232053 NA mmol/L 139 138 138 CL mmol/L 108* 106 110* CO2 mmol/L 24 23 20* BUN mg/dL 18 18 13 CREATININE mg/dL 0.73 0.74 0.66 CALCIUM mg/dL 9.4 9.9 10.0 Magnesium: No results for input(s): MG in the last 168 hours. Phosphorus: Recent Labs Lab Units 01/02/24205101/01/24211712/31/232053 PHOS mg/dL 3.9 3.5 3.4 Coagulation: No results for input(s): PT , INR , APTT in the last 168 hours. Endocrine: No results for input(s): TSH , A1C in the last 168 hours. LFTs: Recent Labs Lab Units 01/02/24205101/01/24211712/31/232053 AST U/L 14 26 23 ALT U/L 35 45 32 TBILI mg/dL 0.5 0.4 0.5 ALB g/dL 3.6 3.7 3.7 Micro: Microbiology Results (Displays last 21 days for this encounter ONLY) Procedure Component Value - Date/Time RESPIRATORY PANEL WITH SARS-COV-2 BY PCR ([facility]) [[id number]] (Normal) Collected: 12/19/23 0918 Lab Status: Final result Specimen: Microbiology from Nasopharyngeal Updated: 12/19/23 1531 Adenovirus PCR Not detected Coronavirus 229E PCR Not detected Coronavirus HKU1 PCR Not detected Coronavirus NL63 PCR Not detected Coronavirus OC43 PCR Not detected COVID-19 PCR Not detected Human Metapneumovirus PCR Not detected Human Rhinovirus/Enterovirus PCR Not detected Influenza A PCR Not detected Influenza B PCR Not detected Parainfluenza Virus 1 PCR Not detected Parainfluenza Virus 2 PCR Not detected Parainfluenza Virus 3 PCR Not detected Parainfluenza Virus 4 PCR Not detected Respiratory Syncytial Virus PCR Not detected Bordetella parapertussis PCR Not detected Bordetella pertussis PCR Not detected Chlamydia pneumoniae PCR Not detected Mycoplasma pneumoniae PCR Not detected Narrative: This nucleic amplification assay has received FDA authorization via the [employer]. Imaging: CT HEAD WO CONTRAST Result Date: 01/01/2024 IMPRESSION: 1. No acute intracranial process. Report dictated by Haleigh Mosquera MD (resident service coordinator). I, Romie Sanchez MD have personally reviewed and interpreted this examination/study. > Interpreting Provider: Romie Sanchez MD on 01/01/2024 11:21 AM Problem List: Acute myeloid leukemia in remission (HCC) (POA: Yes) Pancytopenia due to chemotherapy (HCC) (POA: Yes) IIH (idiopathic intracranial hypertension) (POA: Yes) Tachycardia (POA: Yes) Assessment and Plan: #AML in remission (dx'd 08/2023) #Pancytopenia Presented for cycle 4 of HiDAC (cytarabine, & dexamethasone). -heme/onc following with transfusion recs to maintain hgb <7 and PLT < 10 (unless bleeding) -this cycle EOT 01/02pm, per heme/onc can d/c if stable 01/03 -daily CBC during admission, transfuse per heme/onc recs #s/p fall during hospitalization (12/31/23) #h/o SAH (09/2023) Fall 12/30 per nursing, pt was found with blood in mouth, no img at that time, CT head later without acute process. -cont acetaminophen PRN pain -fall precautions -monitor anemia #Multilayered retinal hemorrhages #Papilledema -follows with ophthalmology outpatient -cont dexamethasone gtts w/ HiDAC per heme/onc recs -artificial tears #Type 2 Diabetes Mellitus #Hyperglycemia hgA1c 7.2 (09/27/23) -> 6.8% (01/02/24), reported no home meds. -hyperglycemia likely 2/2 steroids vs T2DM -cont coverage w/ SSI only, blood glucose 116 before breakfast this AM -cont accu checks + SSI TIDAC/HS -consistent carb diet Inpatient Checklist -LDA: PIV -Antibiotic end date: N/A, chronic ppx -Consults: Heme/Onc -DVT: None, ambulatory and +anemia -Diet: Consistent Carb -Code Status: Full Code -Dispo: Admitted, anticipate d/c home without needs 01/03 if labs [id number] Non-urgent messages may be sent through [employer] Secure Chat Date of service: 01/03/2024 Attending Physician: Mauro Canales MD Associated attestation - aMuro Canales MD - 01/04/2024 7:51 AM CDT I have personally and independently examined the patient and reviewed the chart and all pertinent data including imaging and labs. I agree with the Advanced Practic Provider with the note and treatment plan for this patient. * Shahzad Tinoco MD - 01/03/2024 10:44 AM CDT Images from the original note were not included. HEMATOLOGY/ONCOLOGY INPATIENT PROGRESS NOTE Name: Sarah Mckeon Age: [age] year old Date of : 1985 Date of Service: 01/03/2024 HEMATOLOGY & ONCOLOGY HISTORY Principal Diagnosis: AML w/ NPM-1 mutation Current Therapy: C4D4 HiDAC consolidation Prior Hematology/Oncology History: Acute myeloid leukemia in remission (HCC) 09/03/2023 Initial Diagnosis 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 ([facility]) 09/06/2023 - Chemotherapy cytarabine (Cytosar) 460 [...] edema on exam-- to prevent vision loss. Active Treatment Days for Sarah Mckeon (until 01/01/2024) 12/30/2023 ONCOLOGY TREATMENT: IP AML CONSOLIDATION - AGE <60 (HIGH DOSE CYTARABINE)(SANDHU HIDAC) Day 1, Cycle 4 (Started) Pre-Medications: ondansetron (Zofran) injection 8 mg, ondansetron (Zofran) injection 8 mg, dexAMETHasone Sod Phosphate PF injection 8 mg Chemotherapy: cytarabine (Cytosar) 6,700 mg in 0.9% NaCl IV 597 mL infusion, cytarabine (Cytosar) 6,700 mg in 0.9% NaCl IV 597 mL infusion Supportive Care: dexAMETHasone (Decadron) 0.1 % ophthalmic suspension 2 drop, dexAMETHasone (Decadron) 0.1 % ophthalmic suspension 2 drop, famotidine (Pepcid) tablet 20 mg, prochlorperazine (Compazine) tablet 10 mg, prochlorperazine (Compazine) injection 5 mg, ondansetron (disintegrating) (Zofran ODT) tablet 8 mg, ondansetron (Zofran) injection 8 mg, valACYclovir (Valtrex) tablet 500 mg 01/01/2024 ONCOLOGY TREATMENT: IP AML CONSOLIDATION - AGE <60 (HIGH DOSE CYTARABINE)(SANDHU HIDAC) Day 3, Cycle 4 (Planned) Pre-Medications: ondansetron (Zofran) injection 8 mg, dexAMETHasone Sod Phosphate PF injection 8 mg Chemotherapy: cytarabine (Cytosar) 6,700 mg in 0.9% NaCl IV 567 mL infusion History of Present Illness Chief Complaint: Here for Cycle 4 HIDAC for AML Hospital Course: Sarah Mckeon is a 38 year old female with AML w/ NPM-1 mutation (favorable) diagnosed in 09/06, s/p induction 7+3 and 2x consolidation therapies, here for cycle 4 of HiDAC treatment. Per patient [facility] 08/[facility] with flu/ cold like symptoms ( chills, fever, fatigue), infectious work up neg, during work up bone marrow biopsy performed revealing 78% blasts on marrow and flow cytometry confirmed NPM1 mutation, transferred to [facility] for induction therapy, after which repeat BMB 10/01/23 showed remission of disease. Underwent 2x consolidation therapies during herlast admission hospital course c/b retinal hemorrhage and increased intracranial pressure, and a SAH that resolved on repeat imaging w/ MRI. Per pt during cycle 2 in early 11/2022 she experience mildtremor in R hand and R leg for 5 minutes that self resolved w/o intervention and no nausea after completing induction. Had a fall on night of 12/31 ~1am, reaching over for eye drops that fell on the ground, after this had a syncopal episode, brief fainting for ~5 mins, woke up with blood in her mouth from her L upper molar area, bleeding resolved spontaneously after pt applied pressure, hgb drop from 7.3 to 6.6, plt 41, received 1U prbc, hgb stable post fall, Head CT no hemorrhage or acute abnormalities -risk factors for AML reviewed, no hx of radiation or benzene exposure, however past tobacco use 16pack year hx (2ppd for 8 years, quit 2010) Interval History: -no acute events overnight Review of Systems: As noted in HPI. All other systems reviewed and negative. Past Medical & Surgical History Patient Active Problem List Diagnosis ??? Tachycardia ??? Pseudotumor cerebri ??? Hypernatremia [...] Section ??? Cholecystectomy ??? KIDNEY STONES, REMOVAL Social History 2ppd for ~8 years, quit in 2010 when patient became , ~16 pack year hx Occasional etoh on holidays, Denies marijuana, cocaine and heroin use Lives with partner, daughter (age 11) and step son (21) Social History Tobacco Use ??? Smoking status: Former Packs/day: 1 Types: Cigarettes Start date: 2004 Quit date: 2010 Years since quittin.3 ??? Smokeless tobacco: Never Substance Use Topics ??? Alcohol use: Yes Comment: occasional Family History Family History Family history unknown: Yes father is adopted, his biological father at young age of a cancer unknown what kind Pt not in touch with her mother since age 7 Medications SCHEDULED MEDICATIONS: 0.9% NaCl injection 3 mL, Intracatheter, q8h cytarabine (Cytosar) 6,700 mg in 0.9% NaCl IV 597 mL infusion, Intravenous, q12h dexAMETHasone (Decadron) 0.1 % ophthalmic suspension 2 drop, Each Eye, 4X/DAY famotidine (Pepcid) tablet 20 mg, Oral, BID insulin aspart (NovoLOG) pen 0-4 Units, Subcutaneous, AT BEDTIME insulin aspart (NovoLOG) pen 0-6 Units, Subcutaneous, TID WC ondansetron (Zofran) injection 8 mg, Intravenous, q12h valACYclovir (Valtrex) tablet 500 mg, Oral, BID [COMPLETED] dexAMETHasone (Decadron) injection 8 mg, Intravenous, Once CONTINUOUS MEDICATIONS: PRN MEDICATIONS: Or Or 0.9% NaCl injection 1-10 mL, Intracatheter, PRN acetaminophen (Tylenol) tablet 500 mg, Oral, q6h PRN artificial tears ophthalmic solution 1 drop, Each Eye, TID PRN dextrose 10 % IV bolus, Intravenous, PRN dextrose 10 % IV bolus, Intravenous, PRN glucagon (Glucagen) injection 1 mg, Subcutaneous, PRN glucose (Diabetic Use) oral gel, Oral, PRN ondansetron (disintegrating) (Zofran ODT) tablet 8 mg, Oral, BID PRN ondansetron (Zofran) injection 8 mg, Intravenous, BID PRN prochlorperazine (Compazine) injection 5 mg, Intravenous, q4h PRN prochlorperazine (Compazine) tablet 10 mg, Oral, q4h PRN Allergies No Known Allergies OBJECTIVE Physical Exam Vitals: 01/02/24200001/02/24 2336 01/03/24 0349 01/03/24 0733 BP: 131/76 108/69 115/69 119/72 Pulse: 76 88 68 67 Resp: 16 Temp: 97.4 ??F (36.3 ??C) 98.2 ??F (36.8 ??C) 98 ??F (36.7 ??C) 97.5 ??F (36.4 ??C) SpO2: 100% 97% 98% 100% Weight: 108 kg (238 lb 3.2 oz) Height: Wt Readings from Last 3 Encounters: 01/03/24 108 kg (238 lb 3.2 oz) 12/30/23 108.7 kg (239 lb 11.2 oz) 12/24/23 107.6 kg (237 lb 3.2 oz) ECOG: General: Well-developed axo3. No acute distress. Head: Normocephalic, atraumatic. Eyes: [...] Musculoskeletal: No spinal tenderness or visible deformity. Skin: Warm, dry. No rash. Neurologic: Alert, oriented. No gross focal neurologic deficits. Psychiatric: Cooperative. Appropriate mood and affect. Laboratory Results Recent Labs Component Name 01/02/24205101/01/24211712/31/232053 WBC 2.9* 3.6* 5.1 RBC 2.63* 2.80* 2.31* HGB 7.4* 7.9* 6.6* HCT 21.1* 22.4* 19.1* MCV 80.2 80.0 82.7 MCHC 35.1 35.3 34.6 PLTCOUNT 25* 32* 41* NEUTPCT 84.4* 87.5* 71.4 LYMPHPCT 11.4* 7.2* 10.0* NEUTABS 2.44 3.14 3.66 LYMPHABS 0.33* 0.26* 0.51* BASOABS 0.00 0.00 0.00 Recent Labs Component Name 01/02/24205101/01/24211712/31/232053 POTASSIUM 3.6 4.4 4.0 CO2 24 23 20* BUN 18 18 13 CREATININE 0.73 0.74 0.66 EGFR >90 >90 >90 GLUCOSE 213* 297* 246* CALCIUM 9.4 9.9 10.0 MAGNESIUM 2.2 2.1 2.2 PHOS 3.9 3.5 3.4 ALT 35 45 32 AST 14 26 23 ALKPHOS 69 74 73 Pathology Results Personally reviewed and summarized above in Hematology & Oncology History Radiology Results Personally reviewed and summarized above in Hematology & Oncology History CT FACIAL BONES WO CONTRAST Result Date: 11/24/2023 IMPRESSION: 1. Mild mucosal thickening of the [...] Romie Sanchez MD on 11/24/2023 2:[address] HEAD WO CONTRAST Result Date: 11/19/2023 IMPRESSION: 1. Interval resolution of a small amount of subarachnoid hemorrhage in the right central sulcus. No new hemorrhage. > Interpreting Provider: Romie Sanchez MD on 11/19/2023 11:32 AM FL LUMBAR PUNCT FOR CHEMO INJ Result Date: 10/06/2023 IMPRESSION: 1. Successful lumbar puncture under fluoroscopic guidance at level L3-4. 2. Successful injection of intrathecal chemotherapeutic agent. 3. Successful measurement of opening pressure: 31 cm of water in the prone position. Report dictated by Sivakumar Garrido DO (Jewellery Designer). I, Sara Huitron MD have personally reviewed and interpreted this examination/study. 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 At [...] Augustine Davison MD on 10/03/2023 10:24 AM ASSESSMENT Sarah Mckeon is a 38 year old female with AML w/ NPM-1 mutation (favorable) diagnosed in 09/06, s/p induction 7+3 and 2x consolidation therapies, here for cycle 4 of HiDAC treatment. 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 She is in molecular remission from AML standpoint. Plan is to complete 4 cycles of HiDAC consolidation. No more IT treatment planned. - Labs reviewed. Hgb 6.6 overnight received 1U prb on 12/31 (hgb drop after 1x fall /8 night) -post fall head CT no acute intracranial pathology, no intracranial hemorrhage PLAN: -Cycle 4 Day 5 HiDAC consolidation - Continue ppx with valtrex 500mg BID -Please note pt has home Levaquin, posaconazole and valtrex supply already -pt will take current bottle of dexamethasone ophthalmic drops home with her to complete 72 hrs post-last dose of HiDAC -had clinic f/u w/ [facility] onc clinic Saturday 01/06, with labs M/W/F for monitoring TRANSFUSION parameters: - pRBC transfusion if hgb drops below [...] after completing platelet transfusion to assess response. ?? # Multilayered retinal Hemorrhages BL #hx of papilledema w/ elevated ICP now resolved - attributed to retinal hemorrhage and not chemotherapy, eval by optho last hospitalization - Asymptomatic today, still using dexa eye drops while on HIDAC - s.p acetazolamide 500mg BID tx, discontinued due to metabolic acidosis, continued PFATs (Preservative-Free Artificial Tears) - had gritty feeling in eyes / floaters -LP 10/06/23 showed elevated opening pressures, meningitis ruled out Plan: - Per ophtho will follow up as an outpatient. Next f/u 12/[address] Hobson, will need to reschedule ? - Continue dexamethasone eye drops during HiDAC cycles - Artificial tears QID while inpatient. ?? #Vaginal Bleeding -??Medroxyprogesterone??pill discontinued / concern for IIH. Confirmed with patient that she is not taking it. -reports last vaginal spotting 1 month ago, none currently - CTM - Next medroxyprogesterone injection due week of 01/05/24. ?? Plan discussed with Dr. Lebron. Shahzad Tinoco Hem/onc fellow Associated attestation - Jose Martin Lebron MD - 01/04/2024 11:49 AM CDT Attending Physician Supervisory Note Oncology History Acute myeloid leukemia in remission (HCC) 09/03/2023 Initial Diagnosis 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 ([facility]) 09/06/2023 - Chemotherapy cytarabine (Cytosar) 460 [...] - Chemotherapy C4D1 HiDAC (final anticipated cycle) I personally interviewed and examined the patient and agree with the doctor above. Jose Martin Lebron MD * Alexsandra, Flor Reed RN - 01/03/2024 2:01 AM CDT Problem: Fall Risk Goal: Fall risk and fall related injury risk are minimized (interventions related to the fall risk can be found in the flowsheet documentation) Outcome: Progressing * Ce Stafford RN - 01/02/2024 6:34 PM CDT Problem: Fall Risk Goal: Fall risk and fall related injury risk are minimized (interventions related to the fall risk can be found in the flowsheet documentation) Outcome: Progressing Problem: Pain/Discomfort Goal: Patient exhibits reduced pain/discomfort as evidenced by pain scores Outcome: Progressing Goal: Patient uses pharmacological and non-pharmacological pain management strategies. Outcome: Progressing Goal: Patient verbalizes acceptable level of pain relief and ability to engage in desired activity. Outcome: Progressing * Tiana Burciaga DO - 01/02/2024 1:39 PM CDT Ms. Mckeon is a 38-year-old female C4D4 HiDAC for favorable-risk (NPM1+) AML. She is currently inpatient (see today's progress note for details) w/ anticipated discharge on Sun AM. Discharge planningas below: Heme/onc discharge meds (no prescriptions need to be sent): -Levaquin 500 mg qday x 10 days (already has enough at home) -Posaconazole 400 mg qday x 10 days (already has enough at home) -Continue home Valtrex 500 mg BID (already has enough at home) -Decadron eye drops 0.1% suspension 2 drops QID until 01/06 (Fri) afternoon (on discharge, nursing can give pt the remainder of the bottle currently being used inpatient) Clinic f/u details: -Appt in heme/onc clinic is scheduled for 01/06 -Will have MWF labs done in heme/onc clinic (our clinic will take care of the orders) Thank you for the opportunity to participate in the care of this patient. Please don't hesitate to contact heme/onc consult fellow via the pad making machine operator or AMION if any clarifications needed or any questions. Plan was discussed with hematology/oncology attending. Tiana Burciaga DO, PGY-4 Hematology/Oncology Fellow [facility] * Gaurav Moyer - 01/02/2024 12:54 PM CDT Music Therapy Progress Note Start Time: 1100 End Time: 1135 Music Therapy Goals: Increase relaxation and Increase meaningful social interaction Intervention Provided: Provide familiar / significant music and Provide opportunities for social interaction Therapy Type: Individual Therapy Patient Response: Appropriate Affect: Mood, appropriate Treatment Modality: Music Therapy Music Therapist Gaurav Moyer visited patient in [facility] room. Patient was observed sitting up in chair, alert and oriented. During interventions, Patient sang, made eye contact, smiled, and moved in time with the music. At conclusion of session, no nonverbal indicators of distress observed. Gaurav Moyer [facility] [place] 01/02/2024 12:54 PM * Marshall Apodaca APRN-CNP - 01/02/2024 11:32 AM CDT Daily Progress Note Hospital Medicine Name: Sarah Mckeon Age: [age] year old Room: 709/01 Date Admitted: 12/30/2023 Hospital Course: Sarah Mckeon is a 38 year old female with past medical history of AML, multilayered retinal hemorrhages, and DM who presented for cycle 4 of HiDAC with hematology/oncology. Subjective: Patient seen awake and alert sitting up in chair working on her computer, breathing room air in no acute distress. Denies fever, chills, chest pain, shortness of breath. Denies acute or new complaints. Current Facility-Administered Medications Medication Dose Route Frequency Provider Last Rate Last Admin ??? 0.9% NaCl injection 3 mL 3 mL Intracatheter q8h Cheryl Cronin MD 10 mL at 12/31/23 1354 And ??? 0.9% NaCl injection 1-10 mL 1-10 mL Intracatheter PRN Cheryl Cronin MD 10 mL at 12/31/23 0927 ??? acetaminophen (Tylenol) tablet 500 mg 500 mg Oral q6h PRN Rogers Cazares PA-C 500 mg at 01/02/24 0843 ??? artificial tears ophthalmic solution 1 drop 1 drop Each Eye TID PRN Cheryl Cronin MD ??? dexAMETHasone (Decadron) 0.1 % ophthalmic suspension 2 drop 2 drop Each Eye 4X/DAY Remington Stafford MD 2 drop at 01/02/24 1015 ??? dextrose 10 % IV bolus 12.5 g Intravenous PRN Rogers Cazares PA-C Or ??? dextrose 10 % IV bolus 25 g Intravenous PRN Rogers Cazares PA-C Or ??? glucagon (Glucagen) injection 1 mg 1 mg Subcutaneous PRN Rogers Cazares PA-C ??? famotidine (Pepcid) tablet 20 mg 20 mg Oral BID Remington Stafford MD 20 mg at 01/02/24 0844 ??? glucose (Diabetic Use) oral gel Oral PRN Rogers Cazares PA-C ??? insulin aspart (NovoLOG) pen 0-4 Units 0-4 Units Subcutaneous AT BEDTIME Rogers Cazares PA-C2 Units at 01/01/24 2211 ??? insulin aspart (NovoLOG) pen 0-6 Units 0-6 Units Subcutaneous TID WC Rogers Cazares PA-C 3 Units at 01/01/24 1657 ??? ondansetron (disintegrating) (Zofran ODT) tablet 8 mg 8 mg Oral BID PRN Remington Stafford MD ??? ondansetron (Zofran) injection 8 mg 8 mg Intravenous BID PRN Remington Stafford MD ??? prochlorperazine (Compazine) injection 5 mg 5 mg Intravenous q4h PRN Remington Stafford MD ??? prochlorperazine (Compazine) tablet 10 mg 10 mg Oral q4h PRN Remington Stafford MD ??? valACYclovir (Valtrex) tablet 500 mg 500 mg Oral BID Remington Stafford MD 500 mg at 01/02/24 0844 Wt Readings from Last 3 Encounters: 01/02/24 108.9 kg (240 lb) 12/30/23 108.7 kg (239 lb 11.2 oz) 12/24/23 107.6 kg (237 lb 3.2 oz) Vitals: BP 118/76 (BP Location: Right arm, Patient Position: Lying, BP Cuff Size: Adult) Pulse 76 Temp 97.7 ??F (36.5 ??C) (Oral) Resp 20 Ht 1.575 m (5' 2 ) Wt 108.9 kg (240 lb) SpO2 97% Physical Exam Vitals reviewed. HENT: Head: Normocephalic and atraumatic. Ears: Comments: Hearing intact to voice Eyes: General: No scleral icterus. Extraocular Movements: Extraocular movements intact. Cardiovascular: Rate and Rhythm: Normal rate and regular rhythm. Heart sounds: No friction rub. No gallop. Pulmonary: Effort: Pulmonary effort is normal. Breath sounds: Normal breath sounds. Abdominal: General: Bowel sounds are normal. Palpations: Abdomen is soft. Tenderness: There is no guarding. Musculoskeletal: Cervical back: Normal range of motion. No rigidity. Right lower leg: No edema. Left lower leg: No edema. Skin: General: Skin is warm and dry. Neurological: General: No focal deficit present. Mental Status: She is alert and oriented to person, place, and time. Mental status is at baseline. Psychiatric: Mood and Affect: Mood normal. Behavior: Behavior normal. Thought Content: Thought content normal. Labs: CBC: Recent Labs Lab Units 01/01/24211712/31/23205312/30/23203412/30/231103 WBC x10E9/L 3.6* 5.1 4.2 -- RBC x10E12/L 2.80* 2.31* 2.60* -- HGB g/dL 7.9* 6.6* 7.3* -- HCT % 22.4* 19.1* 21.5* -- PLT x10E9/L -- -- -- 34* BMP: Recent Labs Lab Units 01/01/24211712/31/23205312/30/232034 NA mmol/L 138 138 139 CL mmol/L 106 110* 109* CO2 mmol/L 23 20* 18* BUN mg/dL 18 13 13 CREATININE mg/dL 0.74 0.66 0.61 CALCIUM mg/dL 9.9 10.0 10.0 Magnesium: No results for input(s): MG in the last 168 hours. Phosphorus: Recent Labs Lab Units 01/01/24211712/31/23205312/30/232034 PHOS mg/dL 3.5 3.4 3.2 Coagulation: No results for input(s): PT , INR , APTT in the last 168 hours. Endocrine: No results for input(s): TSH , A1C in the last 168 hours. LFTs: Recent Labs Lab Units 01/01/24211712/31/23205312/30/232034 AST U/L 26 23 21 ALT U/L 45 32 26 TBILI mg/dL 0.4 0.5 0.4 ALB g/dL 3.7 3.7 3.7 Micro: Microbiology Results (Displays last 21 days for this encounter ONLY) Procedure Component Value - Date/Time RESPIRATORY PANEL WITH SARS-COV-2 BY PCR ([facility]) [[id number]] (Normal) Collected: 12/19/23917 Lab Status: Final result Specimen: Microbiology from Nasopharyngeal Updated: 12/19/23 1531 Adenovirus PCR Not detected Coronavirus 229E PCR Not detected Coronavirus HKU1 PCR Not detected Coronavirus NL63 PCR Not detected Coronavirus OC43 PCR Not detected COVID-19 PCR Not detected Human Metapneumovirus PCR Not detected Human Rhinovirus/Enterovirus PCR Not detected Influenza A PCR Not detected Influenza B PCR Not detected Parainfluenza Virus 1 PCR Not detected Parainfluenza Virus 2 PCR Not detected Parainfluenza Virus 3 PCR Not detected Parainfluenza Virus 4 PCR Not detected Respiratory Syncytial Virus PCR Not detected Bordetella parapertussis PCR Not detected Bordetella pertussis PCR Not detected Chlamydia pneumoniae PCR Not detected Mycoplasma pneumoniae PCR Not detected Narrative: This nucleic amplification assay has received FDA authorization via the [employer]. Imaging: CT HEAD WO CONTRAST Result Date: 01/01/2024 IMPRESSION: 1. No acute intracranial process. Report dictated by Haleigh Mosquera MD (resident service coordinator). I, Romie Sanchez MD have personally reviewed and interpreted this examination/study. > Interpreting Provider: Romie Sanchez MD on 01/01/2024 11:21 AM Problem List: Acute myeloid leukemia in remission (HCC) (POA: Yes) Pancytopenia due to chemotherapy (HCC) (POA: Yes) IIH (idiopathic intracranial hypertension) (POA: Yes) Tachycardia (POA: Yes) Assessment and Plan: #AML #Pancytopenia Presented for cycle 4 of HiDAC. -heme/onc following with transfusion recs to maintain hgb <7 and PLT < 10 (unless bleeding) -this cycle EOT 04/20pm, per heme/onc can d/c if stable 01/03 -daily CBC during admission, transfuse per heme/onc recs #s/p fall during hospitalization (12/31/23) #h/o SAH (09/2023) Fall 12/30 per nursing, pt was found with blood in mouth, no img at that time, CT head later without acute process. -cont acetaminophen PRN pain -fall precautions -monitor anemia #Multilayered retinal hemorrhages #Papilledema -follows with ophthalmology outpatient -cont dexamethasone gtts w/ HiDAC per heme/onc recs -artificial tears #Type 2 Diabetes Mellitus #Hyperglycemia hgA1c 7.2 (09/27/23) -> 6.8% (01/02/24), reported no home meds. -hyperglycemia likely 2/2 steroids vs T2DM -cont coverage w/ SSI only, blood glucose 116 before breakfast this AM -cont accu checks + SSI TIDAC/HS -consistent carb diet Inpatient Checklist -LDA: PIV -Antibiotic end date: N/A, chronic ppx -Consults: Heme/Onc -DVT: None, ambulatory and +anemia -Diet: Consistent Carb -Code Status: Full Code -Dispo: Admitted, anticipate d/c home without needs 01/03 if labs stable [facility] Medicine ASCOM # [id number] Non-urgent messages may be sent through Listiki Chat Date of service: 01/02/2024 Attending Physician: Dawn Dias MD * Avril Caraballo DO - 01/02/2024 11:31 AM CDT Images from the original note were not included. HEMATOLOGY/ONCOLOGY INPATIENT PROGRESS NOTE Name: Sarah Mckeon Age: [age] year old Date of : 1985 Date of Service: 01/02/2024 HEMATOLOGY & ONCOLOGY HISTORY Principal Diagnosis: AML w/ NPM-1 mutation Current Therapy: C4D4 HiDAC consolidation Prior Hematology/Oncology History: Acute myeloid leukemia in remission (HCC) 09/03/2023 Initial Diagnosis 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 ([facility]) 09/06/2023 - Chemotherapy cytarabine (Cytosar) 460 [...] edema on exam-- to prevent vision loss. Active Treatment Days for Sarah Mckeon (until 01/01/2024) 12/30/2023 ONCOLOGY TREATMENT: IP AML CONSOLIDATION - AGE <60 (HIGH DOSE CYTARABINE)(SANDHU HIDAC) Day 1, Cycle 4 (Started) Pre-Medications: ondansetron (Zofran) injection 8 mg, ondansetron (Zofran) injection 8 mg, dexAMETHasone Sod Phosphate PF injection 8 mg Chemotherapy: cytarabine (Cytosar) 6,700 mg in 0.9% NaCl IV 597 mL infusion, cytarabine (Cytosar) 6,700 mg in 0.9% NaCl IV 597 mL infusion Supportive Care: dexAMETHasone (Decadron) 0.1 % ophthalmic suspension 2 drop, dexAMETHasone (Decadron) 0.1 % ophthalmic suspension 2 drop, famotidine (Pepcid) tablet 20 mg, prochlorperazine (Compazine) tablet 10 mg, prochlorperazine (Compazine) injection 5 mg, ondansetron (disintegrating) (Zofran ODT) tablet 8 mg, ondansetron (Zofran) injection 8 mg, valACYclovir (Valtrex) tablet 500 mg 01/01/2024 ONCOLOGY TREATMENT: IP AML CONSOLIDATION - AGE <60 (HIGH DOSE CYTARABINE)(SANDHU HIDAC) Day 3, Cycle 4 (Planned) Pre-Medications: ondansetron (Zofran) injection 8 mg, dexAMETHasone Sod Phosphate PF injection 8 mg Chemotherapy: cytarabine (Cytosar) 6,700 mg in 0.9% NaCl IV 567 mL infusion History of Present Illness Chief Complaint: Here for Cycle 4 HIDAC for AML Hospital Course: Sarah Mckeon is a 38 year old female with AML w/ NPM-1 mutation (favorable) diagnosed in 09/06, s/p induction 7+3 and 2x consolidation therapies, here for cycle 4 of HiDAC treatment. Per patient presented [facility] 08/[facility]23 with flu/ cold like symptoms ( chills, fever, fatigue), infectious work up neg, during work up bone marrow biopsy performed revealing 78% blasts on marrow and flow cytometry confirmed NPM1 mutation, transferred to [facility] for induction therapy, after which repeat BMB 10/01/23 showed remission of disease. Underwent 2x consolidation therapies during herlast admission hospital course c/b retinal hemorrhage and increased intracranial pressure, and a SAH that resolved on repeat imaging w/ MRI. Per pt during cycle 2 in early 11/2022 she experience mildtremor in R hand and R leg for 5 minutes that self resolved w/o intervention and no nausea after completing induction. Had a fall on night of 12/31 ~1am, reaching over for eye drops that fell on the ground, after this had a syncopal episode, brief fainting for ~5 mins, woke up with blood in her mouth from her L upper molar area, bleeding resolved spontaneously after pt applied pressure, hgb drop from 7.3 to 6.6, plt 41, received 1U prbc, hgb stable post fall, Head CT no hemorrhage or acute abnormalities -risk factors for AML reviewed, no hx of radiation or benzene exposure, however past tobacco use 16pack year hx (2ppd for 8 years, quit 2010) Interval History: -no acute events overnight, pt doing well, denies N/V, abd pain, no longer feeling lightheaded Review of Systems: As noted in HPI. All other systems reviewed and negative. Past Medical & Surgical History Patient Active Problem List Diagnosis ??? Tachycardia ??? Pseudotumor cerebri ??? Hypernatremia [...] Section ??? Cholecystectomy ??? KIDNEY STONES, REMOVAL Social History 2ppd for ~8 years, quit in 2010 when patient became , ~16 pack year hx Occasional etoh on holidays, Denies marijuana, cocaine and heroin use Lives with partner, daughter (age 11) and step son (21) Social History Tobacco Use ??? Smoking status: Former Packs/day: 1 Types: Cigarettes Start date: 2004 Quit date: 2010 Years since quittin.3 ??? Smokeless tobacco: Never Substance Use Topics ??? Alcohol use: Yes Comment: occasional Family History Family History Family history unknown: Yes father is adopted, his biological father at young age of a cancer unknown what kind Pt not in touch with her mother since age 7 Medications SCHEDULED MEDICATIONS: 0.9% NaCl injection 3 mL, Intracatheter, q8h dexAMETHasone (Decadron) 0.1 % ophthalmic suspension 2 drop, Each Eye, 4X/DAY famotidine (Pepcid) tablet 20 mg, Oral, BID insulin aspart (NovoLOG) pen 0-4 Units, Subcutaneous, AT BEDTIME insulin aspart (NovoLOG) pen 0-6 Units, Subcutaneous, TID WC valACYclovir (Valtrex) tablet 500 mg, Oral, BID [COMPLETED] cytarabine (Cytosar) 6,700 mg in 0.9% NaCl IV 597 mL infusion, Intravenous, q12h [COMPLETED] ondansetron (Zofran) injection 8 mg, Intravenous, q12h CONTINUOUS MEDICATIONS: PRN MEDICATIONS: Or Or 0.9% NaCl injection 1-10 mL, Intracatheter, PRN acetaminophen (Tylenol) tablet 500 mg, Oral, q6h PRN artificial tears ophthalmic solution 1 drop, Each Eye, TID PRN dextrose 10 % IV bolus, Intravenous, PRN dextrose 10 % IV bolus, Intravenous, PRN glucagon (Glucagen) injection 1 mg, Subcutaneous, PRN glucose (Diabetic Use) oral gel, Oral, PRN ondansetron (disintegrating) (Zofran ODT) tablet 8 mg, Oral, BID PRN ondansetron (Zofran) injection 8 mg, Intravenous, BID PRN prochlorperazine (Compazine) injection 5 mg, Intravenous, q4h PRN prochlorperazine (Compazine) tablet 10 mg, Oral, q4h PRN Allergies No Known Allergies OBJECTIVE Physical Exam Vitals: 01/01/24 2004 01/02/24 0038 01/02/24 0446 01/02/24 0845 BP: 135/83 112/64 123/71 118/76 Pulse: 82 80 74 76 Resp: Temp: 97.7 ??F (36.5 ??C) 98.3 ??F (36.8 ??C) 98.2 ??F (36.8 ??C) 97.7 ??F (36.5 ??C) SpO2: 99% 97% 98% 97% Weight: 108.9 kg (240 lb) Height: Wt Readings from Last 3 Encounters: 01/02/24 108.9 kg (240 lb) 12/30/23 108.7 kg (239 lb 11.2 oz) 12/24/23 107.6 kg (237 lb 3.2 oz) ECOG: General: Well-developed axo3. No acute distress. Head: Normocephalic, atraumatic. Eyes: [...] Musculoskeletal: No spinal tenderness or visible deformity. Skin: Warm, dry. No rash. Neurologic: Alert, oriented. No gross focal neurologic deficits. Psychiatric: Cooperative. Appropriate mood and affect. Laboratory Results Recent Labs Component Name 01/01/24211712/31/23205312/30/232034 WBC 3.6* 5.1 4.2 RBC 2.80* 2.31* 2.60* HGB 7.9* 6.6* 7.3* HCT 22.4* 19.1* 21.5* MCV 80.0 82.7 82.7 MCHC 35.3 34.6 34.0 PLTCOUNT 32* 41* 44* NEUTPCT 87.5* 71.4 81.5* LYMPHPCT 7.2* 10.0* 11.8* NEUTABS 3.14 3.66 3.40 LYMPHABS 0.26* 0.51* 0.49* BASOABS 0.00 0.00 0.01 Recent Labs Component Name 01/01/24211712/31/23205312/30/232034 POTASSIUM 4.4 4.0 4.3 CO2 23 20* 18* BUN 18 13 13 CREATININE 0.74 0.66 0.61 EGFR >90 >90 >90 GLUCOSE 297* 246* 274* CALCIUM 9.9 10.0 10.0 MAGNESIUM 2.1 2.2 1.8 PHOS 3.5 3.4 3.2 ALT 45 32 26 AST 26 23 21 ALKPHOS 74 73 86 Pathology Results Personally reviewed and summarized above in Hematology & Oncology History Radiology Results Personally reviewed and summarized above in Hematology & Oncology History CT FACIAL BONES WO CONTRAST Result Date: 11/24/2023 IMPRESSION: 1. Mild mucosal thickening of the [...] Romie Sanchez MD on 11/24/2023 2:[address] HEAD WO CONTRAST Result Date: 11/19/2023 IMPRESSION: 1. Interval resolution of a small amount of subarachnoid hemorrhage in the right central sulcus. No new hemorrhage. > Interpreting Provider: Romie Sanchez MD on 11/19/2023 11:32 AM FL LUMBAR PUNCT FOR CHEMO INJ Result Date: 10/06/2023 IMPRESSION: 1. Successful lumbar puncture under fluoroscopic guidance at level L3-4. 2. Successful injection of intrathecal chemotherapeutic agent. 3. Successful measurement of opening pressure: 31 cm of water in the prone position. Report dictated by Sivakumar Garrido DO (Jewellery Designer). I, Sara Huitron MD have personally reviewed and interpreted this examination/study. 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 At [...] Augustine Davison MD on 10/03/2023 10:24 AM ASSESSMENT Sarah Mckeon is a 38 year old female with AML w/ NPM-1 mutation (favorable) diagnosed in 09/06, s/p induction 7+3 and 2x consolidation therapies, here for cycle 4 of HiDAC treatment. 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 She is in molecular remission from AML standpoint. Plan is to complete 4 cycles of HiDAC consolidation. No more IT treatment planned. - Labs reviewed. Hgb 6.6 overnight received 1U prb on 12/31 (hgb drop after 1x fall 4/`8 night) -post fall head CT no acute intracranial pathology, no intracranial hemorrhage PLAN: -Cycle 4 Day 4 HiDAC consolidation - Continue ppx with valtrex 500mg BID - consider posaconazole, and levaquin if patient becomes neutropenic - Stat CT prelim per my read no acute intracranial bleeding -Please note pt has home Levaquin, posaconazole and valtrex supply already -pt will take current bottle of dexamethasone ophthalmic drops home with her to complete 72 hrs post-last dose of HiDAC -had clinic f/u w/ [facility] onc clinic Saturday 01/06, with labs M// for monitoring TRANSFUSION parameters: - pRBC transfusion if hgb drops below [...] after completing platelet transfusion to assess response. ?? # Multilayered retinal Hemorrhages BL #hx of papilledema w/ elevated ICP now resolved - attributed to retinal hemorrhage and not chemotherapy, eval by optho last hospitalization - Asymptomatic today, still using dexa eye drops while on HIDAC - s.p acetazolamide 500mg BID tx, discontinued due to metabolic acidosis, continued PFATs (Preservative-Free Artificial Tears) - had gritty feeling in eyes / floaters -LP 10/06/23 showed elevated opening pressures, meningitis ruled out Plan: - Per ophtho will follow up as an outpatient. Next f/u 12/[address] Hobson, will need to reschedule ? - Continue dexamethasone eye drops during HiDAC cycles - Artificial tears QID while inpatient. ?? #Vaginal Bleeding -??Medroxyprogesterone??pill discontinued 2/2 concern for IIH. Confirmed with patient that she is not taking it. -reports last vaginal spotting 1 month ago, none currently - CTM - Next medroxyprogesterone injection due week of 01/05/24. ?? #Hx of anal pain: likely attributed to anal fissure - Per exam 12/17/23, no areas of erythema or tenderness. - Per pt's history, suspect anal fissure. - Preparation H cream externally, and/or tucks pads for comfort - Improving ?? Thank you for the opportunity to participate in the care of this patient. Hem/Onc consult service will continue to follow closely. Recommendations not final until attestation by attending Dr Lebron Please don't hesitate to contact hem/onc consult fellow via the pad making machine operator or AMION if any questions or clarifications. Associated attestation - Jose Martin Lebron MD - 01/02/2024 2:59 PM CDT Attending Physician Supervisory Note Oncology History Acute myeloid leukemia in remission (HCC) 09/03/2023 Initial Diagnosis 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 ([facility]) 09/06/2023 - Chemotherapy cytarabine (Cytosar) 460 [...] - Chemotherapy C4D1 HiDAC (final anticipated cycle) I personally interviewed and examined the patient and agree with the doctor above. Jose Martin Lebron MD * Flor Upton, CORRIE - 01/02/2024 1:37 AM CDT Problem: Fall Risk Goal: Fall risk and fall related injury risk are minimized (interventions related to the fall risk can be found in the flowsheet documentation) Outcome: Progressing * Ce Stafford RN - 01/01/2024 4:13 PM CDT Problem: Fall Risk Goal: Fall risk and fall related injury risk are minimized (interventions related to the fall risk can be found in the flowsheet documentation) Outcome: Progressing Problem: Pain/Discomfort Goal: Patient exhibits reduced pain/discomfort as evidenced by pain scores Outcome: Progressing Goal: Patient uses pharmacological and non-pharmacological pain management strategies. Outcome: Progressing Goal: Patient verbalizes acceptable level of pain relief and ability to engage in desired activity. Outcome: Progressing * Rogers Cazares PA-C - 01/01/2024 12:51 PM CDT Hospitalist Daily Progress Note Name: Sarah Mckeon Age: [age] year old Room: 709/01 Date Admitted: 12/30/2023 Total duration of encounter: 2 days Hospital Course: Sarah Mckeon is a 38 year old female with PMH of AML, multilyaered retinal hemorrhages, presentingfor C4 of HiDAC with consolidation for AML. Subjective: Patient seen and examined at bedside. Ms. Mckeon states she is doing well. She described her fall yesterday morningas follows: she was standing upright and then started shaking and felt dizzy. She then came down to her knees and passed out. She does not remember how she hit her head/jaw, but statesblood was found in her mouth after fall. She denies history of seizures or falls. Hgb was 6.6 yesterday at 20:54 and Pt received a blood transfusion this morning. RN reported similar history of her fall. Today she endorses mild tooth pain in front tooth, but denies any headache, dizziness. She denies fever, chills, chest pain, shortness of breath, nausea, vomiting, diarrhea, constipation, or abdominal pain. Current Facility-Administered Medications Medication Dose Route Frequency Provider Last Rate Last Admin ??? 0.9% NaCl infusion rate and volume 250 mL Intravenous Once PRN Dominic Farah MD ??? 0.9% NaCl injection 3 mL 3 mL Intracatheter q8h Cheryl Cronin MD 10 mL at 12/31/23 1354 And ??? 0.9% NaCl injection 1-10 mL 1-10 mL Intracatheter PRN Cheryl Cronin MD 10 mL at 04/17/24 0927 ??? artificial tears ophthalmic solution 1 drop 1 drop Each Eye TID PRN Cheryl Cronin MD ??? cytarabine (Cytosar) 6,700 mg in 0.9% NaCl IV 597 mL infusion 3,000 mg/m2 (Treatment Plan Recorded) Intravenous q12h Remington Stafford MD 199 mL/hr at 01/01/24 1003 6,700 mg at 01/01/24 1003 ??? dexAMETHasone (Decadron) 0.1 % ophthalmic suspension 2 drop 2 drop Each Eye 4X/DAY Remington Stafford MD 2 drop at 01/01/24 1135 ??? dextrose 10 % IV bolus 12.5 g Intravenous PRN Rogers Cazares PA-C Or ??? dextrose 10 % IV bolus 25 g Intravenous PRN Rogers Cazares PA-C Or ??? glucagon (Glucagen) injection 1 mg 1 mg Subcutaneous PRN Rogers Cazares PA-C ??? famotidine (Pepcid) tablet 20 mg 20 mg Oral BID Remington Stafford MD 20 mg at 01/01/24 0926 ??? glucose (Diabetic Use) oral gel Oral PRN Rogers Cazares PA-C ??? insulin aspart (NovoLOG) pen 0-4 Units 0-4 Units Subcutaneous AT BEDTIME Rogers Cazares PA-C ??? insulin aspart (NovoLOG) pen 0-6 Units 0-6 Units Subcutaneous TID WC Rogers Cazares PA-C ??? ondansetron (disintegrating) (Zofran ODT) tablet 8 mg 8 mg Oral BID PRN Remington Stafford MD ??? ondansetron (Zofran) injection 8 mg 8 mg Intravenous q12h Remington Stafford MD 8 mg at 01/01/24926 ??? ondansetron (Zofran) injection 8 mg 8 mg Intravenous BID PRN Remington Stafford MD ??? prochlorperazine (Compazine) injection 5 mg 5 mg Intravenous q4h PRN Remington Stafford MD ??? prochlorperazine (Compazine) tablet 10 mg 10 mg Oral q4h PRN Remington Stafford MD ??? valACYclovir (Valtrex) tablet 500 mg 500 mg Oral BID Remington Stafford MD 500 mg at 01/01/24 0926 Vitals: Vital signs reviewed. BP 113/71 Pulse 87 Temp 97.5 ??F (36.4 ??C) Resp 20 Ht 1.575 m (5' 2 ) Wt 109.4 kg (241 lb 3.2 oz) SpO2 97% Physical Exam Constitutional: General: Not in acute distress, plesant Appearance: Nontoxic appearing, not diaphoretic. HENT: Head: Normocephalic and atraumatic. Mouth: Mucous membranes are moist. Mild erythema around the gum of left upper incisor. No bleeding noted from teeth or gums. Eyes: General: EOMI. Scleral icterus is not present. Sclera are non-injected. Cardiovascular: Rate and Rhythm: Normal rate and regular rhythm. No murmurs or gallops noted. Pulmonary: Effort: Pulmonary effort is normal. No respiratory distress. Breath sounds: Normal breath sounds. Abdominal: General: There is no distention. Palpation: Abdomen is soft. Tenderness: There is no abdominal tenderness. There is no guarding. Musculoskeletal: Right lower leg: No edema. Left lower leg: No edema. Skin: General: Skin is warm and dry. Neurological: Mental Status: Alert and oriented to person, place, and time. Normal speech. Grossly moving all extremities; no focal deficits Psychiatric: Mood and Affect: Mood and affect are appropriate. Labs: CBC: Recent Labs Lab Units 12/31/23205312/30/23203412/30/23 1104 12/30/23 0909 WBC x10E9/L 5.1 4.2 -- 5.0 RBC x10E12/L 2.31* 2.60* -- 2.58* HGB g/dL 6.6* 7.3* -- 7.4* HCT % 19.1* 21.5* -- 21.1* PLT x10E9/L -- -- 34* -- BMP: Recent Labs Lab Units 12/31/23205312/30/23203412/30/23 0909 NA mmol/L 138 139 142 CL mmol/L 110* 109* 112* CO2 mmol/L 20* 18* 20* BUN mg/dL 13 13 9 CREATININE mg/dL 0.66 0.61 0.72 CALCIUM mg/dL 10.0 10.0 9.7 Magnesium: No results for input(s): MG in the last 168 hours. Phosphorus: Recent Labs Lab Units 12/31/23205312/30/23203412/30/23 0909 PHOS mg/dL 3.4 3.2 3.5 Coagulation: No results for input(s): PT , INR , APTT in the last 168 hours. Endocrine: No results for input(s): TSH , A1C in the last 168 hours. LFTs: Recent Labs Lab Units 12/31/23205312/30/23203412/30/23 0909 AST U/L 23 21 17 ALT U/L 32 26 21 TBILI mg/dL 0.5 0.4 0.4 ALB g/dL 3.7 3.7 3.5 Micro: Microbiology Results (Displays last 21 days for this encounter ONLY) Procedure Component Value - Date/Time RESPIRATORY PANEL WITH SARS-COV-2 BY PCR ([facility]) [[id number]] (Normal) Collected: 12/19/23917 Lab Status: Final result Specimen: Microbiology from Nasopharyngeal Updated: 12/19/23 1531 Adenovirus PCR Not detected Coronavirus 229E PCR Not detected Coronavirus HKU1 PCR Not detected Coronavirus NL63 PCR Not detected Coronavirus OC43 PCR Not detected COVID-19 PCR Not detected Human Metapneumovirus PCR Not detected Human Rhinovirus/Enterovirus PCR Not detected Influenza A PCR Not detected Influenza B PCR Not detected Parainfluenza Virus 1 PCR Not detected Parainfluenza Virus 2 PCR Not detected Parainfluenza Virus 3 PCR Not detected Parainfluenza Virus 4 PCR Not detected Respiratory Syncytial Virus PCR Not detected Bordetella parapertussis PCR Not detected Bordetella pertussis PCR Not detected Chlamydia pneumoniae PCR Not detected Mycoplasma pneumoniae PCR Not detected Narrative: This nucleic amplification assay has received FDA authorization via the [employer]. Imaging: CT HEAD WO CONTRAST Result Date: 01/01/2024 IMPRESSION: 1. No acute intracranial process. Report dictated by Haleigh Mosquera MD (resident service coordinator). IRomie MD have personally reviewed and interpreted this examination/study. > Interpreting Provider: Romie Sanchez MD on 01/01/2024 11:21 AM Problem List Acute myeloid leukemia in remission (HCC) (POA: Yes) Pancytopenia due to chemotherapy (HCC) (POA: Yes) IIH (idiopathic intracranial hypertension) (POA: Yes) Tachycardia (POA: Yes) Assessment and plan: A&P reviewed and adapted from previous Hospitalist progress note on 12/31/2023 with my changes and updates as indicated. ?? AML Pancytopenia -Presenting for C4 of HiDAC consolidation ->follow heme/onc recs -Labs collected in clinic noting pancytopenia c/w prior course PLAN: - C4D2 per heme/onc - Valtrex for OI ppx - Transfuse to maintain Hgb > 7.0 and Plt > 10K ?-Consent placed in chart -S/p blood transfusion today -Follow CBC on 01/01 ?? S/p fall in hospital Hx of SAH in 09/2023 -Fall occurred at 11:30 on 12/30 per nursing and Pt was found to have blood in mouth s/p fall. At that time it was felt that no imaging was needed and Pt was given Tylenol for pain. -Hgb was 6.6 on 12/30 -Fall likely 2/2 anemia -Pt denies any history of seizures or previous falls PLAN: -CT head ordered and shows no acute process -Fall precautions -Tylenol PRN for pain Multilayered Retinal Hemorrhages Papilledema -Follows with ophthalmology as outpatient -Previously on acetazolamide for concern of idiopathic intracranial hypertension, but stopped afterdeveloping metabolic acidosis PLAN: -Dexamethasone drops with HiDAC per heme/onc -Artificial tears -Will follow with ophtho as outpatient Hx of T2DM Hyperglycemia 2/2 steroids vs T2DM -A1C was 7.2 on 09/27 -Pt not on any meds at home -Pt s/p decadron 8 mg IV today -Start SSI 0-6 and monitor BG with goal BG 140-180 -Follow morning repeat A1C Tachycardia -Resolved - Present on arrival in both clinic and to floor - States that she has not had issues with palpitations or chest pain as an outpatient; states that she often feels this way when starting a cycle but that it evens out shortly after - No signs to suggest underlying infection; appears euvolemic at this time - EKG noting sinus tachycardia and HR much improved - Continue to monitor vitals This was discussed with the attending physician. Inpatient Checklist LDA(s) PIV DVT ppx No lovenox as Pt is ambulatory and had recent Hgb 6.6 VTE Mechanical Prophylaxis Orders (From admission, onward) Ordered Start 12/30/231710 SEQUENTIAL COMPRESSION DEVICE (IMPLEMENT) CONTINUOUS Start Time: 12/30/231714 Order ID: [id number] Status: Sent 12/30/231714 PT/OT Consulted No Diet DIET REGULAR Consult(s) IP CONSULT TO INDUSTRIAL AUTOMATION ENGINEER PCP Nilam Mayers MD Code Full Code DC Dispo Inpatient READMISSION RISK SCORE is 24 at 12:51 PM 01/01/2024. Rogers Cazares PA-C Feel free to text page me through [employer] Date of service: 01/01/2024 Attending Physician: Dawn Dias MD * Avril Caraballo DO - 01/01/2024 11:09 AM CDT Images from the original note were not included. HEMATOLOGY/ONCOLOGY INPATIENT PROGRESS NOTE Name: Sarah Mckeon Age: [age] year old Date of : 1985 Date of Service: 01/01/2024 HEMATOLOGY & ONCOLOGY HISTORY Principal Diagnosis: AML w/ NPM-1 mutation Current Therapy: C4D3 HiDAC consolidation Prior Hematology/Oncology History: Acute myeloid leukemia in remission (HCC) 09/03/2023 Initial Diagnosis 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 ([facility]) 09/06/2023 - Chemotherapy cytarabine (Cytosar) 460 [...] edema on exam-- to prevent vision loss. Active Treatment Days for Sarah Mckeon (until 01/01/2024) 12/30/2023 ONCOLOGY TREATMENT: IP AML CONSOLIDATION - AGE <60 (HIGH DOSE CYTARABINE)(SANDHU HIDAC) Day 1, Cycle 4 (Started) Pre-Medications: ondansetron (Zofran) injection 8 mg, ondansetron (Zofran) injection 8 mg, dexAMETHasone Sod Phosphate PF injection 8 mg Chemotherapy: cytarabine (Cytosar) 6,700 mg in 0.9% NaCl IV 597 mL infusion, cytarabine (Cytosar) 6,700 mg in 0.9% NaCl IV 597 mL infusion Supportive Care: dexAMETHasone (Decadron) 0.1 % ophthalmic suspension 2 drop, dexAMETHasone (Decadron) 0.1 % ophthalmic suspension 2 drop, famotidine (Pepcid) tablet 20 mg, prochlorperazine (Compazine) tablet 10 mg, prochlorperazine (Compazine) injection 5 mg, ondansetron (disintegrating) (Zofran ODT) tablet 8 mg, ondansetron (Zofran) injection 8 mg, valACYclovir (Valtrex) tablet 500 mg 01/01/2024 ONCOLOGY TREATMENT: IP AML CONSOLIDATION - AGE <60 (HIGH DOSE CYTARABINE)(SANDHU HIDAC) Day 3, Cycle 4 (Planned) Pre-Medications: ondansetron (Zofran) injection 8 mg, dexAMETHasone Sod Phosphate PF injection 8 mg Chemotherapy: cytarabine (Cytosar) 6,700 mg in 0.9% NaCl IV 567 mL infusion History of Present Illness Chief Complaint: Here for Cycle 4 HIDAC for AML Hospital Course: Sarah Mckeon is a 38 year old female with AML w/ NPM-1 mutation (favorable) diagnosed in 09/06, s/p induction 7+3 and 2x consolidation therapies, here for cycle 4 of HiDAC treatment. Per patient presented to [facility] 08/2023 with flu/ cold like symptoms ( chills, fever, fatigue), infectious work up neg, during work up bone marrow biopsy performed revealing 78% blasts on marrow and flow cytometry confirmed NPM1 mutation, transferred to [facility] for induction therapy, after which repeat BMB 10/01/23 showed remission of disease. Underwent 2x consolidation therapies during herlast admission hospital course c/b retinal hemorrhage and increased intracranial pressure, and a SAH that resolved on repeat imaging w/ MRI. Per pt during cycle 2 in early 11/2022 she experience mildtremor in R hand and R leg for 5 minutes that self resolved w/o intervention and no nausea after completing induction. -risk factors for AML reviewed, no hx of radiation or benzene exposure, however past tobacco use 16pack year hx (2ppd for 8 years, quit 2010) Interval History: 1x fall overnight, pt was reaching over for eye drops that fell on the ground, after this had a syncopal episode, brief fainting for ~5 mins, woke up with blood in her mouth from her L upper molar area, bleeding resolved spontaneously after pt applied pressure, hgb drop from 7.3 to 6.6, plt 41, received 1U prbc overnight -complete neuro exam performed, pupils equal reactive to light BL, 5/5 strength in BL upper and LE w/ sensation in tact, no bowel or bladder incontinence and denies being confused after -Stat CT prelim per my read no acute intracranial bleeding Review of Systems: As noted in HPI. All other systems reviewed and negative. Past Medical & Surgical History Patient Active Problem List Diagnosis ??? Tachycardia ??? Pseudotumor cerebri ??? Hypernatremia [...] Section ??? Cholecystectomy ??? KIDNEY STONES, REMOVAL Social History 2ppd for ~8 years, quit in 2010 when patient became , ~16 pack year hx Occasional etoh on holidays, Denies marijuana, cocaine and heroin use Lives with partner, daughter (age 11) and step son (21) Social History Tobacco Use ??? Smoking status: Former Packs/day: 1 Types: Cigarettes Start date: 2004 Quit date: 2011 Years since quittin.3 ??? Smokeless tobacco: Never Substance Use Topics ??? Alcohol use: Yes Comment: occasional Family History Family History Family history unknown: Yes father is adopted, his biological father at young age of a cancer unknown what kind Pt not in touch with her mother since age 7 Medications SCHEDULED MEDICATIONS: 0.9% NaCl injection 3 mL, Intracatheter, q8h cytarabine (Cytosar) 6,700 mg in 0.9% NaCl IV 597 mL infusion, Intravenous, q12h dexAMETHasone (Decadron) 0.1 % ophthalmic suspension 2 drop, Each Eye, 4X/DAY famotidine (Pepcid) tablet 20 mg, Oral, BID insulin aspart (NovoLOG) pen 0-4 Units, Subcutaneous, AT BEDTIME insulin aspart (NovoLOG) pen 0-6 Units, Subcutaneous, TID WC ondansetron (Zofran) injection 8 mg, Intravenous, q12h valACYclovir (Valtrex) tablet 500 mg, Oral, BID [COMPLETED] acetaminophen (Tylenol) tablet 1,000 mg, Oral, Once [COMPLETED] dexAMETHasone (Decadron) injection 8 mg, Intravenous, Once CONTINUOUS MEDICATIONS: PRN MEDICATIONS: Or Or 0.9% NaCl infusion rate and volume, Intravenous, Once PRN 0.9% NaCl injection 1-10 mL, Intracatheter, PRN artificial tears ophthalmic solution 1 drop, Each Eye, TID PRN dextrose 10 % IV bolus, Intravenous, PRN dextrose 10 % IV bolus, Intravenous, PRN glucagon (Glucagen) injection 1 mg, Subcutaneous, PRN glucose (Diabetic Use) oral gel, Oral, PRN ondansetron (disintegrating) (Zofran ODT) tablet 8 mg, Oral, BID PRN ondansetron (Zofran) injection 8 mg, Intravenous, BID PRN prochlorperazine (Compazine) injection 5 mg, Intravenous, q4h PRN prochlorperazine (Compazine) tablet 10 mg, Oral, q4h PRN Allergies No Known Allergies OBJECTIVE Physical Exam Vitals: 01/01/24 0100 01/01/24 0118 01/01/24 0341 01/01/24 0822 BP: 110/70 112/65 110/71 120/84 Pulse: 90 91 92 82 Resp: Temp: 98.1 ??F (36.7 ??C) 98.1 ??F (36.7 ??C) 98.4 ??F (36.9 ??C) 98.2 ??F (36.8 ??C) SpO2: 97% 98% 100% 98% Weight: Height: Wt Readings from Last 3 Encounters: 12/30/23 109.4 kg (241 lb 3.2 oz) 12/30/23 108.7 kg (239 lb 11.2 oz) 12/24/23 107.6 kg (237 lb 3.2 oz) ECOG: General: Well-developed axo3. No acute distress. Head: Normocephalic, atraumatic. Eyes: [...] Musculoskeletal: No spinal tenderness or visible deformity. Skin: Warm, dry. No rash. Neurologic: Alert, oriented. No gross focal neurologic deficits. Psychiatric: Cooperative. Appropriate mood and affect. Laboratory Results Recent Labs Component Name 12/31/23205312/30/23203412/30/23 0909 12/24/23 0851 WBC 5.1 4.2 5.0 2.8* RBC 2.31* 2.60* 2.58* 2.84* HGB 6.6* 7.3* 7.4* 8.1* HCT 19.1* 21.5* 21.1* 22.8* MCV 82.7 82.7 81.8 80.3 MCHC 34.6 34.0 35.1 35.5 PLTCOUNT 41* 44* - 48* NEUTPCT 71.4 81.5* 42.9 - LYMPHPCT 10.0* 11.8* 34.5 - NEUTABS 3.66 3.40 2.16 0.89* 1.34* LYMPHABS 0.51* 0.49* 1.74 0.45* BASOABS 0.00 0.01 0.01 - Recent Labs Component Name 12/31/23205312/30/23203412/30/23 0909 POTASSIUM 4.0 4.3 3.8 CO2 20* 18* 20* BUN 13 13 9 CREATININE 0.66 0.61 0.72 EGFR >90 >90 >90 GLUCOSE 246* 274* 187* CALCIUM 10.0 10.0 9.7 MAGNESIUM 2.2 1.8 1.8 PHOS 3.4 3.2 3.5 ALT 32 26 21 AST 23 21 17 ALKPHOS 73 86 86 Pathology Results Personally reviewed and summarized above in Hematology & Oncology History Radiology Results Personally reviewed and summarized above in Hematology & Oncology History CT FACIAL BONES WO CONTRAST Result Date: 11/24/2023 IMPRESSION: 1. Mild mucosal thickening of the [...] Romie Sanchez MD on 11/24/2023 2:[address] HEAD WO CONTRAST Result Date: 11/19/2023 IMPRESSION: 1. Interval resolution of a small amount of subarachnoid hemorrhage in the right central sulcus. No new hemorrhage. > Interpreting Provider: Romie Sanchez MD on 11/19/2023 11:32 AM FL LUMBAR PUNCT FOR CHEMO INJ Result Date: 10/06/2023 IMPRESSION: 1. Successful lumbar puncture under fluoroscopic guidance at level L3-4. 2. Successful injection of intrathecal chemotherapeutic agent. 3. Successful measurement of opening pressure: 31 cm of water in the prone position. Report dictated by Sivakumar Garrido DO (Jewellery Designer). I, Sara Huitron MD have personally reviewed and interpreted this examination/study. 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 At [...] Augustine Davison MD on 10/03/2023 10:24 AM ASSESSMENT Sarah Mckeon is a 38 year old female with AML w/ NPM-1 mutation (favorable) diagnosed in 09/06, s/p induction 7+3 and 2x consolidation therapies, here for cycle 4 of HiDAC treatment. 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 She is in molecular remission from AML standpoint. Plan is to complete 4 cycles of HiDAC consolidation. No more IT treatment planned. - Labs reviewed. Hgb 6.6 overnight received 1U prb on 12/31 (hgb drop after 1x fall 4/`8 night) -Final read for CT head will be important given hx of incidental small SAH 09/2023 found during ophtho workup for retina hemorrhage PLAN: -Cycle 4 Day 3 HiDAC consolidation -1x decadron 8mg IV prior to HIDAC today - Continue ppx with valtrex 500mg BID - consider posaconazole, and levaquin if patient becomes neutropenic - Stat CT prelim per my read no acute intracranial bleeding -Please note pt has home Levaquin, posaconazole and valtrex supply already TRANSFUSION parameters: - pRBC transfusion if hgb drops below [...] after completing platelet transfusion to assess response. ?? # Multilayered retinal Hemorrhages BL #hx of papilledema w/ elevated ICP now resolved - attributed to retinal hemorrhage and not chemotherapy, eval by optho last hospitalization - Asymptomatic today, still using dexa eye drops while on HIDAC - s.p acetazolamide 500mg BID tx, discontinued due to metabolic acidosis, continued PFATs (Preservative-Free Artificial Tears) - had gritty feeling in eyes / floaters -LP 10/06/23 showed elevated opening pressures, meningitis ruled out Plan: - Per ophtho will follow up as an outpatient. Next f/u 12/[address] Hobson, will need to reschedule ? - Continue dexamethasone eye drops during HiDAC cycles - Artificial tears QID while inpatient. ?? #Vaginal Bleeding -??Medroxyprogesterone??pill discontinued 2/ concern for IIH. Confirmed with patient that she is not taking it. -reports last vaginal spotting 1 month ago, none currently - CTM - Next medroxyprogesterone injection due week of 01/05/24. ?? #Hx of anal pain: likely attributed to anal fissure - Per exam 12/17/23, no areas of erythema or tenderness. - Per pt's history, suspect anal fissure. - Preparation H cream externally, and/or tucks pads for comfort - Improving ?? Thank you for the opportunity to participate in the care of this patient. Hem/Onc consult service will continue to follow closely. Recommendations not final until attestation by attending Dr Lebron Please don't hesitate to contact hem/onc consult fellow via the pad making machine operator or [employer] if any questions or clarifications. Associated attestation - Jose Martin Lebron MD - 01/02/2024 2:48 PM CDT Attending Physician Supervisory Note Oncology History Acute myeloid leukemia in remission [...] - Chemotherapy C4D1 HiDAC (final anticipated cycle) I personally interviewed and examined the patient and agree with the doctor above. Jose Martin Lebron MD * Sendy Edwards RN - 12/31/2023 10:28 PM CDT Problem: Fall Risk Goal: Fall risk and fall related injury risk are minimized (interventions related to the fall risk can be found in the flowsheet documentation) Outcome: Progressing Problem: Pain/Discomfort Goal: Patient exhibits reduced pain/discomfort as evidenced by pain scores Outcome: Progressing * Ignacia Martin RN - 12/31/2023 6:12 PM CDT Problem: Fall Risk Goal: Fall risk and fall related injury risk are minimized (interventions related to the fall risk can be found in the flowsheet documentation) Outcome: Progressing Problem: Pain/Discomfort Goal: Patient exhibits reduced pain/discomfort as evidenced by pain scores Outcome: Progressing Goal: Patient uses pharmacological and non-pharmacological pain management strategies. Outcome: Progressing Goal: Patient verbalizes acceptable level of pain relief and ability to engage in desired activity. Outcome: Progressing * Zuleyka Lindsey RN - 12/31/2023 3:24 PM CDT Care Coordination Initial Assessment Anticipated Discharge Date: 01/05/24 Transportation at Discharge: significant other Anticipated level of care at discharge: Acute Rehab Facility, Home Anticipated level of care provider: None Prior to admission level of care: Home Prior to admit provider: None Patient Goals: safe discharge Plans: No discharge needs identified at this time. Consult Case Management if discharge planning needs arise. Comments: 38 year old female with h/o AML, papilledema presenting for cycle 4 of HiDAC consolidation therapy for AML Lives with: Daughter;Significant Other Physical Limitations: None Requires Assistance With: None Preferred Pharmacy: [id number] - [address] [id number] [address] [address] Advance Directive: No Advance Directive Information Given: Will be offered upon admission Would you like assistance on completing and executing or revising an Advance Directive?: No READMISSION RISK SCORE is 24 at 3:24 PM 12/31/2023. Met with patient and significant other. State pt does not use assistive device and needs assistanceshopping, cooking and cleaning. Significant other assists. Family Support (name and phone): Extended Emergency Contact Information Primary Emergency Contact: tonia fernández Mobile Relation: Significant other Secondary Emergency Contact: French Rosenthal Mobile Relation: Friend Duct Layer Helper needed? No Patient or ambulatory services representative requests care coordination reach out to family or caregiver listed above regarding discharge planning and at time of discharge? Yes Patient/Family provided with list of resources? No Preferred Provider / High Quality Network List given?: No Reason for provider choice: Pt. choice - Physician driven Industrial Therapist Referral: No Will continue to follow. For any questions or needs please contact: Herbarium Curator Name/Phone number: Zuleyka Lindsey RN [phone] * Avril Caraballo DO - 12/31/2023 11:23 AM CDT Images from the original note were not included. HEMATOLOGY/ONCOLOGY INPATIENT PROGRESS NOTE Name: Sarah Mckeon Age: [age] year old Date of : 1985 Date of Service: 12/31/2023 HEMATOLOGY & ONCOLOGY HISTORY Principal Diagnosis: AML w/ NPM-1 mutation Current Therapy: C4D2 HiDAC consolidation Prior Hematology/Oncology History: Acute myeloid leukemia in remission (HCC) 09/03/2023 Initial Diagnosis 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 ([facility]) 09/06/2023 - Chemotherapy cytarabine (Cytosar) 460 [...] edema on exam-- to prevent vision loss. Active Treatment Days for Sarah Mckeon (until 01/01/2024) 12/30/2023 ONCOLOGY TREATMENT: IP AML CONSOLIDATION - AGE <60 (HIGH DOSE CYTARABINE)(SANDHU HIDAC) Day 1, Cycle 4 (Started) Pre-Medications: ondansetron (Zofran) injection 8 mg, ondansetron (Zofran) injection 8 mg, dexAMETHasone Sod Phosphate PF injection 8 mg Chemotherapy: cytarabine (Cytosar) 6,700 mg in 0.9% NaCl IV 597 mL infusion, cytarabine (Cytosar) 6,700 mg in 0.9% NaCl IV 597 mL infusion Supportive Care: dexAMETHasone (Decadron) 0.1 % ophthalmic suspension 2 drop, dexAMETHasone (Decadron) 0.1 % ophthalmic suspension 2 drop, famotidine (Pepcid) tablet 20 mg, prochlorperazine (Compazine) tablet 10 mg, prochlorperazine (Compazine) injection 5 mg, ondansetron (disintegrating) (Zofran ODT) tablet 8 mg, ondansetron (Zofran) injection 8 mg, valACYclovir (Valtrex) tablet 500 mg 01/01/2024 ONCOLOGY TREATMENT: IP AML CONSOLIDATION - AGE <60 (HIGH DOSE CYTARABINE)(SANDHU HIDAC) Day 3, Cycle 4 (Planned) Pre-Medications: ondansetron (Zofran) injection 8 mg, dexAMETHasone Sod Phosphate PF injection 8 mg Chemotherapy: cytarabine (Cytosar) 6,700 mg in 0.9% NaCl IV 567 mL infusion SUBJECTIVE History of Present Illness Chief Complaint: Here for Cycle 4 HIDAC for AML Hospital Course: Sarah Mckeon is a 38 year old female with AML w/ NPM-1 mutation (favorable) diagnosed in 09/06, s/p induction 7+3 and 2x consolidation therapies, here for cycle 4 of HiDAC treatment. Per patient presented to [facility] 08/2023 with flu/ cold like symptoms ( chills, fever, fatigue), infectious work up neg, during work up bone marrow biopsy performed revealing 78% blasts on marrow and flow cytometry confirmed NPM1 mutation, transferred to [facility] for induction therapy, after which repeat BMB 10/01/23 showed remission of disease. Underwent 2x consolidation therapies during herlast admission hospital course c/b retinal hemorrhage and increased intracranial pressure, and a SAH that resolved on repeat imaging w/ MRI. Per pt during cycle 2 in early 11/2022 she experience mildtremor in R hand and R leg for 5 minutes that self resolved w/o intervention and no nausea after completing induction. -risk factors for AML reviewed, no hx of radiation or benzene exposure, however past tobacco use 16pack year hx (2ppd for 8 years, quit 2010) Interval History: -reports feeling well, received 1st dose of high dose cytarabine overnight, denies SIDHU, N/V, detailed neuro and cerebella exam wnl -vaginal bleeding 1x month ago, on methyl progesterone injections monthly, next dose 01/04 -left axillary abscess well healed -continues to be borderline asymptomatic tachycardia HR 105 on EKG, QTC wnl in media tab -using H prep for hemorrhoid related pain Review of Systems: As noted in HPI. All other systems reviewed and negative. Past Medical & Surgical History Patient Active Problem List Diagnosis ??? Tachycardia ??? Pseudotumor cerebri ??? Hypernatremia [...] Section ??? Cholecystectomy ??? KIDNEY STONES, REMOVAL Social History 2ppd for ~8 years, quit in 2010 when patient became , ~16 pack year hx Occasional etoh on holidays, Denies marijuana, cocaine and heroin use Lives with partner, daughter (age 11) and step son (21) Social History Tobacco Use ??? Smoking status: Former Packs/day: 1 Types: Cigarettes Start date: 2004 Quit date: 2010 Years since quittin.3 ??? Smokeless tobacco: Never Substance Use Topics ??? Alcohol use: Yes Comment: occasional Family History Family History Family history unknown: Yes father is adopted, his biological father at young age of a cancer unknown what kind Pt not in touch with her mother since age 7 Medications SCHEDULED MEDICATIONS: 0.9% NaCl injection 3 mL, Intracatheter, q8h dexAMETHasone (Decadron) 0.1 % ophthalmic suspension 2 drop, Each Eye, 4X/DAY famotidine (Pepcid) tablet 20 mg, Oral, BID valACYclovir (Valtrex) tablet 500 mg, Oral, BID [COMPLETED] cytarabine (Cytosar) 6,700 mg in 0.9% NaCl IV 597 mL infusion, Intravenous, Once [COMPLETED] ondansetron (Zofran) injection 8 mg, Intravenous, q12h CONTINUOUS MEDICATIONS: PRN MEDICATIONS: 0.9% NaCl injection 1-10 mL, Intracatheter, PRN artificial tears ophthalmic solution 1 drop, Each Eye, TID PRN ondansetron (disintegrating) (Zofran ODT) tablet 8 mg, Oral, BID PRN ondansetron (Zofran) injection 8 mg, Intravenous, BID PRN prochlorperazine (Compazine) injection 5 mg, Intravenous, q4h PRN prochlorperazine (Compazine) tablet 10 mg, Oral, q4h PRN Allergies No Known Allergies OBJECTIVE Physical Exam Vitals: 12/30/23 2235 12/31/23 0356 12/31/23 0814 12/31/23 1120 BP: 122/88 117/62 128/84 146/87 Pulse: 108 108 101 (!) 118 Resp: 18 18 18 20 Temp: 98 ??F (36.7 ??C) 97.9 ??F (36.6 ??C) 98.1 ??F (36.7 ??C) 97.5 ??F (36.4 ??C) SpO2: 99% 99% 100% 100% Weight: Height: Wt Readings from Last 3 Encounters: 12/30/23 109.4 kg (241 lb 3.2 oz) 12/30/23 108.7 kg (239 lb 11.2 oz) 12/24/23 107.6 kg (237 lb 3.2 oz) ECOG: General: Well-developed axo3. No acute distress. Head: Normocephalic, atraumatic. Eyes: [...] Musculoskeletal: No spinal tenderness or visible deformity. Skin: Warm, dry. No rash. Neurologic: Alert, oriented. No gross focal neurologic deficits. Psychiatric: Cooperative. Appropriate mood and affect. Laboratory Results Recent Labs Component Name 12/30/23203412/30/23 0909 12/24/23 0851 12/22/23 1206 12/06/23 0847 12/05/232021 WBC 4.2 5.0 2.8* - - 2.1* RBC 2.60* 2.58* 2.84* - - 2.37* HGB 7.3* 7.4* 8.1* - - 6.8* HCT 21.5* 21.1* 22.8* - - 19.0* MCV 82.7 81.8 80.3 - - 80.2 MCHC 34.0 35.1 35.5 - - 35.8 PLTCOUNT 44* - 48* 52* - 33* NEUTPCT 81.5* 42.9 - - - 92.7* LYMPHPCT 11.8* 34.5 - - - 5.8* NEUTABS 3.40 2.16 0.89* 1.34* - - 1.91 LYMPHABS 0.49* 1.74 0.45* - - 0.12* BASOABS 0.01 0.01 - - - 0.00 - = values in this interval not displayed. Recent Labs Component Name 12/30/23203412/30/23 0909 12/24/23 0851 POTASSIUM 4.3 3.8 4.1 CO2 18* 20* 18* BUN 13 9 10 CREATININE 0.61 0.72 0.68 EGFR >90 >90 >90 GLUCOSE 274* 187* 165* CALCIUM 10.0 9.7 9.7 MAGNESIUM 1.8 1.8 2.1 PHOS 3.2 3.5 3.1 ALT 26 21 24 AST 21 17 19 ALKPHOS 86 86 88 Pathology Results Personally reviewed and summarized above in Hematology & Oncology History Radiology Results Personally reviewed and summarized above in Hematology & Oncology History CT FACIAL BONES WO CONTRAST Result Date: 11/24/2023 IMPRESSION: 1. Mild mucosal thickening of the [...] Romie Sanchez MD on 11/24/2023 2:[address] HEAD WO CONTRAST Result Date: 11/19/2023 IMPRESSION: 1. Interval resolution of a small amount of subarachnoid hemorrhage in the right central sulcus. No new hemorrhage. > Interpreting Provider: Romie Sanchez MD on 11/19/2023 11:32 AM FL LUMBAR PUNCT FOR CHEMO INJ Result Date: 10/06/2023 IMPRESSION: 1. Successful lumbar puncture under fluoroscopic guidance at level L3-4. 2. Successful injection of intrathecal chemotherapeutic agent. 3. Successful measurement of opening pressure: 31 cm of water in the prone position. Report dictated by Sivakumar Garrido DO (Jewellery Designer). ISara MD have personally reviewed and interpreted this examination/study. 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 At [...] Augustine Davison MD on 10/03/2023 10:24 AM ASSESSMENT Sarah Mckeon is a 38 year old female with AML w/ NPM-1 mutation (favorable) diagnosed in 09/06, s/p induction 7+3 and 2x consolidation therapies, here for cycle 4 of HiDAC treatment. 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 She is in molecular remission from AML standpoint. Plan is to complete 4 cycles of HiDAC consolidation. No more IT treatment planned. - Labs reviewed. Hgb low at 7.3 PLAN: -Cycle 4 Day 2 HiDAC consolidation - Continue ppx with valtrex 500mg BID -consider posaconazole, and levaquin if patient becomes neutropenic TRANSFUSION parameters: - pRBC transfusion if hgb drops below [...] after completing platelet transfusion to assess response. ?? # Multilayered retinal Hemorrhages BL #hx of papilledema w/ elevated ICP now resolved - attributed to retinal hemorrhage and not chemotherapy, eval by optho last hospitalization - Asymptomatic today, still using dexa eye drops while on HIDAC - s.p acetazolamide 500mg BID tx, discontinued due to metabolic acidosis, continued PFATs (Preservative-Free Artificial Tears) - had gritty feeling in eyes / floaters -LP 10/06/23 showed elevated opening pressures, meningitis ruled out Plan: - Per ophtho will follow up as an outpatient. Next f/u 12/[address] Hobson, will need to reschedule ? - Continue dexamethasone eye drops during HiDAC cycles - Artificial tears QID while inpatient. ?? #Vaginal Bleeding -??Medroxyprogesterone??pill discontinued 2/2 concern for IIH. Confirmed with patient that she is not taking it. -reports last vaginal spotting 1 month ago, none currently - CTM - Next medroxyprogesterone injection due week of 01/05/24. ?? #Hx of anal pain: likely attributed to anal fissure - Per exam 12/17/23, no areas of erythema or tenderness. - Per pt's history, suspect anal fissure. - Preparation H cream externally, and/or tucks pads for comfort - Improving ?? Thank you for the opportunity to participate in the care of this patient. Hem/Onc consult service will continue to follow closely. Recommendations not final until attestation by attending Dr Lebron Please don't hesitate to contact hem/onc consult fellow via the pad making machine operator or AMION if any questions or clarifications. Associated attestation - Jose Martin Lebron MD - 12/31/2023 1:21 PM CDT Attending Physician Supervisory Note Oncology History Acute myeloid leukemia in remission (HCC) 09/03/2023 Initial Diagnosis 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 ([facility]-HCC) 09/06/2023 - Chemotherapy cytarabine (Cytosar) 460 [...] edema on exam-- to prevent vision loss. I personally interviewed and examined the patient and agree with the doctor above. Jose Martin Lebron MD * Cheryl Cronin MD - 12/31/2023 10:12 AM CDT Internal Medicine Progress Note 12/31/2023 @ 10:12 AM Admit Date: 12/30/2023 - Length of Stay 1 Day(s) Subjective: - No acute issues or events this AM - Tolerating treatment well - EKG performed yesterday night with improvement of HR and noting only sinus tachycardia Objective: Temp: [97.9 ??F (36.6 ??C)-98.2 ??F (36.8 ??C)] 98.1 ??F (36.7 ??C) Pulse: [101-136] 101 Resp: [18] 18 BP: (117-137)/(62-99) 128/84 Physical Exam General: NAD. HENT: NC/AT Eyes: Anicteric. Non-injected. Chest: CTAB. No crackles or wheezes. No increased work of breathing. Port at chest. Cardiovascular: RRR. No murmurs, rubs, or gallops Abdomen: Soft. NT/ND. Normal BS+. Extremities: No signs of clubbing, cyanosis, or edema. Skin: Warm. Dry. Neurological: Alert; conversational and follows commands. Moves all extremities spontaneously without issue. No focal deficits. Psych: Appropriate mood and affect Data reviewed including pertinent labs, imaging, diagnostics. Imaging: No results found. Assessment/Plan: Principal Problem: Acute myeloid leukemia in remission (HCC) Active Problems: Pancytopenia due to chemotherapy (HCC) IIH (idiopathic intracranial hypertension) Tachycardia #AML #Pancytopenia - Presenting for C4 of HiDAC consolidation - Labs collected in clinic noting pancytopenia c/w prior course PLAN: - C4D2 per heme/onc - Valtrex for OI ppx - Transfuse to maintain Hgb > 7.0 and Plt > 10K - Consent placed in chart ? #Tachycardia (Improved) - Present on arrival in both clinic and to floor - States that she has not had issues with palpitations or chest pain as an outpatient; states that she often feels this way when starting a cycle but that it evens out shortly after - No signs to suggest underlying infection; appears euvolemic at this time - EKG noting sinus tachycardia and HR much improved PLAN: - Continue to monitor ? #Multilayered Retinal Hemorrhages #Papilledema - Follows with ophthalmology as outpatient - Previously on acetazolamide for concern of IIH but stopped after developing metabolic acidosis PLAN: - Dexamethasone drops with HiDAC per heme/onc - Artificial tears - Will follow with ophtho as outpatient Nutrition: Reglar diet DVT Prophylaxis: Mechanical Code: Full Dispo: Awaiting completion of C4 The best way to reach me is through Secure Chat. Cheryl Cronin MD 12/31/2023 * Sheron Weber RN - 12/31/2023 6:05 AM CDT Problem: Fall Risk Goal: Fall risk and fall related injury risk are minimized (interventions related to the fall risk can be found in the flowsheet documentation) Outcome: Progressing * Ebenezer Elkins RN - 12/30/2023 6:29 PM CDT Problem: Fall Risk Goal: Fall risk and fall related injury risk are minimized (interventions related to the fall risk can be found in the flowsheet documentation) 12/30/20231828 by Ebenezer Elkins RN Outcome: Progressing 12/30/2023 1828 by Ebenezer Elkins RN Outcome: Progressing 12/30/2023 1828 by Ebenezer Elkins RN Outcome: Progressing * Ebenezer Elkins RN - 12/30/2023 6:28 PM CDT Problem: Fall Risk Goal: Fall risk and fall related injury risk are minimized (interventions related to the fall risk can be found in the flowsheet documentation) Outcome: Progressing documented in this encounter H&P Notes * Cheryl Cronin MD - 12/30/2023 5:29 PM CDT Images from the original note were not included. General Medicine History & Physical Note Patient: Sarah Mckeon (:1985) Room: [facility] Admit Date: 12/30/2023 Length of Stay: 0 Reason for Admission: Acute myeloid leukemia in remission (HCC) SUBJECTIVE Sarah Mckeon is a 38 year old female with h/o AML, papilledema presenting to [facility] for cycle 4 of HiDAC consolidation therapy for AML. States that overall she is doing well and has been without any symptoms including fever, chills, NS, cough, diarrhea, hematuria, dysuria, melena, hematochezia. Did recently have some issues with constipation/hemorrhoids which had resolved, as well as a recent left axillary infection for which she received Bactrim and has now resolved. On arrival to the floor VS notable for HR 136; AF, BP wnl. Labs from clinic relatively unremarkablecompared to prior studies. Review of Systems 10 point ROS performed and negative unless otherwise noted in the HPI Past Medical History Past Medical History: Diagnosis Date ??? NEGATIVE PAST MEDICAL HISTORY - SEE PROBLEM LIST Past Surgical History Past Surgical History: Procedure Laterality Date ??? Section ??? Cholecystectomy ??? KIDNEY STONES, REMOVAL Family History Family History Family history unknown: Yes Social History Social History Smoking status: Former Packs/day: 1.00 Years: 0.00 Types: Cigarettes Start date: 2004 Quit date: 2010 Smokeless tobacco: Never Alcohol use: Yes Comment: occasional Drug use: Never Sexual activity: Yes Allergies No Known Allergies Home Medications ??? Carboxymethylcellulose Sodium (ARTIFICIAL TEARS OP) ??? famotidine (Pepcid) 20 MG tablet ??? levoFLOXacin (Levaquin) 500 MG tablet ??? medroxyPROGESTERone (Depo-Provera) 150 MG/ML vial ??? ondansetron (Zofran) 8 MG tablet ??? posaconazole (Noxafil) 100 MG tablet ??? potassium chloride ER 10 MEQ tablet ??? prochlorperazine (Compazine) 10 MG tablet ??? valACYclovir (Valtrex) 500 MG tablet OBJECTIVE Vitals Vitals: 12/30/23 1650 BP: 137/91 Pulse: (!) 136 Resp: 18 Temp: 98.2 ??F (36.8 ??C) Weight: 109.4 kg (241 lb 3.2 oz) Height: 1.575 m (5' 2 ) Estimated body mass index is 44.12 kg/m?? as calculated from the following: Height as of this encounter: 1.575 m (5' 2 ). Weight as of this encounter: 109.4 kg (241 lb 3.2 oz). I/Os No intake or output data in the 24 hours ending 12/30/231927 Physical Exam General: NAD. HENT: NC/AT Eyes: Anicteric. Non-injected. Chest: CTAB. No crackles or wheezes. No increased work of breathing. Cardiovascular: Mild tachycardia although sounds regular on exam. No murmurs, rubs, or gallops Abdomen: Soft. NT/ND. Normal BS+. Extremities: No signs of clubbing, cyanosis, or edema. Skin: Warm. Dry. Area underneath left arm without signs of infection Neurological: Alert; conversational and follows commands. Moves all extremities spontaneously without issue. No focal deficits. Psych: Appropriate mood and affect Laboratory Data CBC: Recent Labs Lab 12/30/23 0909 12/24/23 0851 12/22/23 1206 WBC 5.0 2.8* -- HGB 7.4* 8.1* -- HCT 21.1* 22.8* -- MCV 81.8 80.3 -- PLTCOUNT -- 48* 52* BMP: Recent Labs Lab 12/30/23 0909 12/24/23 0851 NA 142 137 POTASSIUM 3.8 4.1 CL 112* 109* CO2 20* 18* BUN 9 10 CREATININE 0.72 0.68 CALCIUM 9.7 9.7 GLUCOSE 187* 165* PHOS 3.5 3.1 MAGNESIUM 1.8 2.1 CMP: Recent Labs Lab 12/30/23 0909 12/24/23 0851 AST 17 19 ALT 21 24 TBILI 0.4 0.3 ALKPHOS 86 88 ALB 3.5 3.5 PROT 6.9 7.5 Microbiology: Reviewed in Epic Imaging Reviewed in [facility] Principal Problem: Acute myeloid leukemia in remission (HCC) Active Problems: Pancytopenia due to chemotherapy (HCC) IIH (idiopathic intracranial hypertension) Tachycardia Assessment & Plan #AML #Pancytopenia - Presenting for C4 of HiDAC consolidation - Labs collected in clinic noting pancytopenia c/w prior course PLAN: - C4D1 per heme/onc - Valtrex for OI ppx - Transfuse to maintain Hgb > 7.0 and Plt > 10K - Consent placed in chart #Tachycardia - Present on arrival in both clinic and to floor - States that she has not had issues with palpitations or chest pain as an outpatient; states that she often feels this way when starting a cycle but that it evens out shortly after - No signs to suggest underlying infection; appears euvolemic at this time PLAN: - EKG ordered to evaluate for type of tachycardia; will follow-up based on sinus or irregular findings #Multilayered Retinal Hemorrhages #Papilledema - Follows with ophthalmology as outpatient - Previously on acetazolamide for concern of IIH but stopped after developing metabolic acidosis PLAN: - Dexamethasone drops with HiDAC per heme/onc - Artificial tears - Will follow with ophtho as outpatient Daily Checklist VTE PPX [x] SCD [] SQ Heparin [] SQ Lovenox [] Therapeutic Anticoagulation Diet DIET REGULAR LDA Port Activity Activity as tolerated + OOBTC 3x daily as tolerated Consults None Disposition Inpatient Code Status Full Code Signed: Cheryl Cronin MD Hospitalist, Sterile Instrument Technician [facility] Please contact via # listed on Amion or via [place] message 12/30/23 7:28 PM documented in this encounter Plan of Treatment Upcoming Encounters Date Type Department Care Team (Late st Contact Info) Description 10/27/2024 10:30 AM PATIENT FINANCIAL SERVICES SPECIALIST Appointment [facility] [address] [place] [address] Hussain Carias MD [address] [place] [phone] Britni Winston, PABaronC [address] [place] [address] 11/17/2024 9:00 AM PATIENT FINANCIAL SERVICES SPECIALIST Office Visit [facility] - Ophthalmology [address] [place] [phone] Song Hobson MD [address] [facility] [place] [phone] documented as of this encounter Procedures Procedure Name Priority Date/Time Associated Diagnosis Comments GLUCOSE - POINT OF CARE Routine 01/04/2024 1:12 PM CDT TRANSFUSE RED BLOOD CELL LEUKOREDUCED UNIT(S) Routine 01/04/2024 11:31 AM CDT PREPARE RBC LEUKOREDUCED UNIT Routine 01/04/2024 11:06 AM CDT TYPE + SCREEN PANEL STAT 01/04/2024 9 :13 AM CDT GLUCOSE - POINT OF CARE Routine 01/04/2024 8:23 AM CDT DIFFERENTIAL MANUAL Routine 01/03/2024 9 :28 PM CDT Acute myeloid leukemia in remission (HCC) CBC W AUTO DIFFERENTIAL Routine 01/03/2024 9:28 PM CDT Acute myeloid leukemia in remission (HCC) COMPREHENSIVE METABOLIC PANEL Routine 01/03/2024 9:28 PM CDT Acute myeloid leukemia in remission (HCC) PHOSPHORUS BLOOD Routine 01/03/2024 9:28 PM CDT Acute myeloid leukemia in remission (HCC) MAGNESIUM BLOOD Routine 01/03/2024 9:28 PM CDT Acute myeloid leukemia in remission (HCC) GLUCOSE - POINT OF CARE Routine 01/03/2024 8:18 PM CDT GLUCOSE - POINT OF CARE Routine 01/03/2024 5:11 PM CDT GLUCOSE - POINT OF CARE Routine 01/03/2024 11:10 AM CDT GLUCOSE - POINT OF CARE Routine 01/03/2024 7:27 AM CDT GLUCOSE - POINT OF CARE Routine 01/02/2024 11:58 PM CDT CBC W AUTO DIFFERENTIAL Routine 01/02/2024 8:52 PM CDT Acute myeloid leukemia in remission (HCC) COMPREHENSIVE METABOLIC PANEL Routine 01/02/2024 8:52 PM CDT Acute myeloid leukemia in remission (HCC) PHOSPHORUS BLOOD Routine 01/02/2024 8:52 PM CDT Acute myeloid leukemia in remission (HCC) MAGNESIUM BLOOD Routine 01/02/2024 8:52 PM CDT Acute myeloid leukemia in remission (HCC) GLUCOSE - POINT OF CARE Routine 01/02/2024 6:07 PM CDT GLUCOSE - POINT OF CARE Routine 01/02/2024 11:04 AM CDT GLUCOSE - POINT OF CARE Routine 01/02/2024 8:42 AM CDT HEMOGLOBIN A1C Routine 01/02/2024 6:08 AM CDT GLUCOSE - POINT OF CARE Routine 01/01/2024 10:05 PM CDT CBC W AUTO DIFFERENTIAL Routine 01/01/2024 9:18 PM CDT Acute myeloid leukemia in remission (HCC) COMPREHENSIVE METABOLIC PANEL Routine 01/01/2024 9:18 PM CDT Acute myeloid leukemia in remission (HCC) PHOSPHORUS BLOOD Routine 01/01/2024 9:18 PM CDT Acute myeloid leukemia in remission (HCC) MAGNESIUM BLOOD Routine 01/01/2024 9:18 PM CDT Acute myeloid leukemia in remission (HCC) GLUCOSE - POINT OF CARE Routine 01/01/2024 7:58 PM CDT GLUCOSE - POINT OF CARE Routine 01/01/2024 4:39 PM CDT GLUCOSE - POINT OF CARE Routine 01/01/2024 11:[address] HEAD WO CONTRAST STAT 01/01/2024 1 0:45 AM CDT Fall, initial encounter TRANSFUSE RED BLOOD CELL LEUKOREDUCED UNIT(S) Routine 01/01/2024 1:03 AM CDT PREPARE RBC LEUKOREDUCED UNIT Routine 01/01/2024 12:40 AM CDT TYPE + SCREEN PANEL Routine 12/31/2023 1 1:13 PM CDT CBC W AUTO DIFFERENTIAL Routine 12/31/2023 8:54 PM CDT Acute myeloid leukemia in remission (HCC) COMPREHENSIVE METABOLIC PANEL Routine 12/31/2023 8:54 PM CDT Acute myeloid leukemia in remission (HCC) PHOSPHORUS BLOOD Routine 12/31/2023 8:54 PM CDT Acute myeloid leukemia in remission (HCC) MAGNESIUM BLOOD Routine 12/31/2023 8:54 PM CDT Acute myeloid leukemia in remission (HCC) CBC W AUTO DIFFERENTIAL Routine 12/30/2023 8:35 PM CDT Acute myeloid leukemia in remission (HCC) COMPREHENSIVE METABOLIC PANEL Routine 12/30/2023 8:35 PM CDT Acute myeloid leukemia in remission (HCC) PHOSPHORUS BLOOD Routine 12/30/2023 8:35 PM CDT Acute myeloid leukemia in remission (HCC) MAGNESIUM BLOOD Routine 12/30/2023 8:35 PM CDT Acute myeloid leukemia in remission (HCC) EKG 12-LEAD Routine 12/30/2023 7:27 PM CDT Tachycardia documented in this encounter Results * TRANSFUSE RED BLOOD CELL LEUKOREDUCED UNIT(S) (01/04/2024 1:38 PM CDT) Marshall Apodaca CONSULTING SYSTEMS ENGINEER-PRINTING PRESS MACHINE OPERATOR NURSING - BLOOD PROD TRANSFUSION * TRANSFUSE RED BLOOD CELL LEUKOREDUCED UNIT(S), 1 Units (01/04/2024 1:38 PM CDT) Marshall Apodaca CONSULTING SYSTEMS ENGINEER-PRINTING PRESS MACHINE OPERATOR NURSING - BLOOD PROD TRANSFUSION * GLUCOSE - POINT OF CARE (01/04/2024 1:12 PM CDT) Pathologist [facility] Glucose WB/POC 85 70 - 115 mg/dL 01/04/2024 3:02 PM CDT [facility] Specimen Type Cap Fingerstick 2023 3:02 PM CDT [facility] Blood BLOOD SPECIMEN / Unknown 01/04/2024 1:12 PM CDT 01/04/2024 3:02 PM CDT Mauro Canales MD LAB - POINT OF CARE ORDERABLES [address] [address], [facility] [phone] * PREPARE (CROSSMATCH) RBC UNIT(S), 1 Units (01/04/2024 11:06 AM CDT) Unit Description AS1 LR PRBC IRR [facility] Unit ABO O [facility] Unit Rh POS [facility] Product Number R04 [facility] Unit Donor # [id number] [facility] Unit Status transfused [facility] Product Code [id number] [facility] Blood Type Barcode 5100 [facility] Expiration Date [id number] [facility] Blood Bank BLOOD SPECIMEN / Unknown 01/04/2024 9:33 AM CDT Marshall Apodaca APRN-PRINTING PRESS MACHINE OPERATOR LAB - BLOOD BANK ORDERABLES [facility] [address] [place] [address], [place] [phone] * TYPE + SCREEN PANEL (01/04/2024 9:13 AM CDT) Antibody Screen NEG 10:15 AM CDT [facility] ABO Rh O POS 01/04/2024 10:15 AM CDT [facility] Blood Bank BLOOD SPECIMEN / Unknown Venipuncture / Unknown 01/04/2024 9:13 AM CDT 01/04/2024 9:33 AM CDT Marshall Apodaca CONSULTING SYSTEMS ENGINEER-PRINTING PRESS MACHINE OPERATOR LAB - BLOOD BANK ORDERABLES [facility] [address] [place] [address], [place] [phone] * GLUCOSE - POINT OF CARE (01/04/2024 8:23 AM CDT) Pathologist [facility] Glucose WB/POC 107 70 - 115 mg/dL 01/04/2024 8:27 AM CDT [facility] Specimen Type Cap Fingerstick 2023 8:27 AM CDT [facility] Blood BLOOD SPECIMEN / Unknown 01/04/2024 8:23 AM CDT 01/04/2024 8:27 AM CDT Mauro Canales MD LAB - POINT OF CARE ORDERABLES [facility] [address] [place] [address], [facility] [phone] * (ABNORMAL) DIFFERENTIAL MANUAL (01/03/2024 9:28 PM CDT) Neutrophil % 97(H) 41 - 74 % 01/04/2024 2:14 AM CDT [facility] Lymphocyte % 3(L) 17 - 47 % 01/04/2024 2:14 AM CDT [facility] Neutrophil Absolute 2.43 1.60 - 7.50 x10E9/L 01/04/2024 2:14 AM CDT [facility] Lymphocyte Absolute 0.08(L) 1.00 - 4.40 x10E9/L 01/04/2024 2:14 AM CDT [facility] RBC Morphology REVIEWED 01/04/2024 2:14 AM CDT [facility] Microcytosis MANY(A) (none) 01/04/2024 2:14 AM CDT [facility] Blood BLOOD SPECIMEN / Unknown Line Draw / Unknown 01/03/2024 9:28 PM CDT 01/03/2024 9:39 PM CDT Remington Stafford MD LAB - HEMATOLOGY ORD ERABLES [facility] [address] [place] [id number], [facility] [phone] * PHOSPHORUS BLOOD (01/03/2024 9:28 PM CDT) Phosphorus 4.3 2.9 - 5.1 mg/dL 01/03/2024 10:03 PM CDT [facility] Blood BLOOD SPECIMEN / Unknown Line Draw / Unknown 01/03/2024 9:28 PM CDT 01/03/2024 9:39 PM CDT Remington Stafford MD LAB - CHEMISTRY ORDE RABLES [facility] [address] [place] [address], [place] [phone] * MAGNESIUM BLOOD (01/03/2024 9:28 PM CDT) [facility] Magnesium 2.1 1.6 - 2.6 mg/dL 01/03/2024 10:03 PM T [facility] Blood BLOOD SPECIMEN / Unknown Line Draw / Unknown 01/03/2024 9:28 PM CDT 01/03/2024 9:39 PM CDT Mhd Flaco Stafford MD LAB - CHEMISTRY JON NAIDU Performing Organization Address City/[facility]/ZIP Co de Phone Number [facility] [address] [place] [address], [place] [phone] * (ABNORMAL) CBC W AUTO DIFFERENTIAL (01/03/2024 9:28 PM CDT) [facility] WBC 2.5(L) 4.0 - 10.7 x10E9/L 01/04/2024 2:16 AM [facility] [facility] RBC Count 2.53(L) 3.90 - 5.20 x10E12/L 01/04/2024 2:16 AM [facility] Hemoglobin 7.1(L) 11.9 - 15.8 g/dL 01/04/2024 2:16 AM [facility] Hematocrit 20.0(L) 34.8 - 46.1 % 01/04/2024 2:16 AM [facility] MCV 79.1(L) 80.0 - 98.0 fL 01/04/2024 2:16 AM [facility] MCH 28.1 26.7 - 33.6 pg 01/04/2024 2:16 AM [facility] MCHC 35.5 31.7 - 36.3 g/dL 01/04/2024 2:16 AM [facility] RDW-CV 14.3 11.3 - 14.8 % 01/04/2024 2:16 AM [facility] Platelet Count 18(LL) 150 - 420 x10E9/L 01/04/2024 2:16 AM [facility] MPV 10.6 7.8 - 11.4 fL 01/04/2024 2:16 AM [facility] Preliminary Absolute Neutrophil 2.35 1.60 - 7.50 x10E9/L 01/04/2024 2:16 AM [facility] Comment:Preliminary ANC pend ing manual confirmation Blood BLOOD SPECIMEN / Unknown Line Draw / Unknown 01/03/2024 9:28 PM CDT 01/03/2024 9:39 PM CDT Mhd Flaco Stafford MD LAB - HEMATOLOGY ORD ERABLES [facility] [address] [place] [address], [facility] [phone] * (ABNORMAL) COMPREHENSIVE METABOLIC PANEL (01/03/2024 9:28 PM CDT) BUN 20 7 - 26 mg/dL 01/03/2024 10:03 PM [facility] Creatinine 0.75 0.56 - 0.96 mg/dL 01/03/2024 10:03 PM [facility] Sodium 139 136 - 145 mmol/L 01/03/2024 10:03 PM [facility] Potassium 4.3 3.5 - 4.5 mmol/L 01/03/2024 10:03 PM [facility] Chloride 107 98 - 107 mmol/L 01/03/2024 10:03 PM [facility] CO2 23 22 - 29 mmol/L 01/03/2024 10:03 PM [facility] Glucose 286(H) 70 - 115 mg/dL 01/03/2024 10:03 PM [facility] Calcium 9.6 8.4 - 10.2 mg/dL 01/03/2024 10:03 PM [facility] Protein Total 6.3 6.0 - 8.3 g/dL 01/03/2024 10:03 PM [facility] Albumin 3.4 3.4 - 5.0 g/dL 01/03/2024 10:03 PM [facility] Bilirubin Total 0.6 0.2 - 1.2 mg/dL 01/03/2024 10:03 PM [facility] Alkaline Phosphatase 65 40 - 150 U/L 01/03/2024 10:03 PM [facility] ALT 49 5 - 55 U/L 01/03/2024 10:03 PM [facility] AST 31 5 - 34 U/L 01/03/2024 10:03 PM [facility] Anion Gap 9 6 - 16 01/03/2024 10:03 PM [facility] BUN/Creatinine Ratio 27(H) 7 - 23 01/03/2024 10:03 PM [facility] Osmolality Calculated 301(H) 275 - 295 mOsm/kg 01/03/2024 10:03 PM [facility] Albumin/Globulin Ratio 1.2 1.1 - 2.3 01/03/2024 10:03 PM [facility] eGFR by CKD-EPI >90 >=90 mL/min/1.7 3 m2 01/03/2024 10:03 PM [facility] Blood BLOOD SPECIMEN / Unknown Line Draw / Unknown 01/03/2024 9:28 PM CDT 01/03/2024 9:39 PM CDT Mhd Flaco Stafford MD LAB - CHEMISTRY JON NAIDU [facility] Organization Address City/State/[facility] Co de Phone Number [facility] [address] [place] [address], [facility] [phone] * (ABNORMAL) GLUCOSE - POINT OF CARE (01/03/2024 8:18 PM CDT) Glucose WB/POC 292(H) 70 - 115 mg/dL 01/03/2024 8:19 PM T [facility] Specimen Type Cap Fingerstick 2023 8:19 PM T [facility] Blood BLOOD SPECIMEN / Unknown 01/03/2024 8:18 PM CDT 01/03/2024 8:19 PM CDT Mauro Canales MD LAB - POINT OF CARE ORDERABLES [address] [address], [place] [phone] * (ABNORMAL) GLUCOSE - POINT OF CARE (01/03/2024 5:11 PM CDT) Glucose WB/POC 167(H) 70 - 115 mg/dL 01/03/2024 7:04 PM CDT [facility] Specimen Type Cap Fingerstick 2023 7:04 PM CDT [facility] Blood BLOOD SPECIMEN / Unknown 01/03/2024 5:11 PM CDT 01/03/2024 7:04 PM CDT Mauro Canales MD LAB - POINT OF CARE ORDERABLES Performing Organization Address City/[facility]/ZIP Co de Phone Number [address] [address], [place] [phone] * GLUCOSE - POINT OF CARE (01/03/2024 11:10 AM CDT) Glucose WB/POC 93 70 - 115 mg/dL 01/03/2024 7:04 PM CDT [facility] Specimen Type Cap Fingerstick 2023 7:04 PM CDT [facility] Blood BLOOD SPECIMEN / Unknown 01/03/2024 11:10 AM CDT 01/03/2024 7:04 PM CDT Mauro Canales MD LAB - POINT OF CARE ORDERABLES [address] [address], [place] [phone] * GLUCOSE - POINT OF CARE (01/03/2024 7:27 AM CDT) Glucose WB/POC 88 70 - 115 mg/dL 01/03/2024 7:04 PM CDT [facility] Specimen Type Cap Fingerstick 2023 7:04 PM CDT [facility] Blood BLOOD SPECIMEN / Unknown 01/03/2024 7:27 AM CDT 01/03/2024 7:04 PM CDT Mauro Canales MD LAB - POINT OF CARE ORDERABLES Performing Organization Address City/[facility]/ZIP Co de Phone Number [address] [address], [place] [phone] * GLUCOSE - POINT OF CARE (01/02/2024 11:58 PM CDT) Glucose WB/POC 113 70 - 115 mg/dL 01/02/2024 11:59 PM CDT [facility] Specimen Type Cap Fingerstick 2023 11:59 PM CDT [facility] Blood BLOOD SPECIMEN / Unknown 01/02/2024 11:58 PM CDT 01/02/2024 11:59 PM CDT Dawn Dias MD LAB - POINT OF CARE ORDERABLES Performing Organization Address City/[facility]/ZIP Co de Phone Number [address] [address], [place] [phone] * PHOSPHORUS BLOOD (01/02/2024 8:52 PM CDT) Phosphorus 3.9 2.9 - 5.1 mg/dL 01/02/2024 9:25 PM CDT [facility] Blood BLOOD SPECIMEN / Unknown Venipuncture / Unknown 01/02/2024 8:52 PM CDT 01/02/2024 8:57 PM CDT Remington Stafford MD LAB - CHEMISTRY JON NAIDU [address] [address], [place] [phone] * MAGNESIUM BLOOD (01/02/2024 8:52 PM CDT) Magnesium 2.2 1.6 - 2.6 mg/dL 01/02/2024 9:25 PM [facility] Blood BLOOD SPECIMEN / Unknown Venipuncture / Unknown 01/02/2024 8:52 PM CDT 01/02/2024 8:57 PM CDT Mhd Flaco Stafford MD LAB - CHEMISTRY JON NAIDU [facility] Organization Address City/State/[facility] Co de Phone Number [facility] [address] [place] [address], [facility] [phone] * (ABNORMAL) CBC W AUTO DIFFERENTIAL (01/02/2024 8:52 PM CDT) WBC 2.9(L) 4.0 - 10.7 x10E9/L 01/02/2024 10:39 PM [facility] RBC Count 2.63(L) 3.90 - 5.20 x10E12/L 01/02/2024 10:39 PM [facility] Hemoglobin 7.4(L) 11.9 - 15.8 g/dL 01/02/2024 10:39 PM [facility] Hematocrit 21.1(L) 34.8 - 46.1 % 01/02/2024 10:39 PM [facility] MCV 80.2 80.0 - 98.0 fL 01/02/2024 10:39 PM [facility] MCH 28.1 26.7 - 33.6 pg 01/02/2024 10:39 PM [facility] MCHC 35.1 31.7 - 36.3 g/dL 01/02/2024 10:39 PM [facility] RDW-CV 14.7 11.3 - 14.8 % 01/02/2024 10:39 PM [facility] Platelet Count 25(L) 150 - 420 x10E9/L 01/02/2024 10:39 PM [facility] MPV 11.3 7.8 - 11.4 fL 01/02/2024 10:39 PM [facility] Preliminary Absolute Neutrophil 2.44 1.60 - 7.50 x10E9/L 01/02/2024 10:39 PM [facility] Comment:Preliminary ANC pend ing manual confirmation Neutrophil % 84.4(H) 41.0 - 74.0 % 01/02/2024 10:39 PM [facility] Lymphocyte % 11.4(L) 17.0 - 47.0 % 01/02/2024 10:39 PM [facility] Monocyte % 3.5 3.0 - 11.0 % 01/02/2024 10:39 PM [facility] Eosinophil % 0.0 0.0 - 7.0 % 01/02/2024 10:39 PM [facility] Basophil % 0.0 0.0 - 1.6 % 01/02/2024 10:39 PM [facility] Immature Granulocytes % 0.7 0.0 - 1.0 % 01/02/2024 10:39 PM [facility] Neutrophil Absolute 2.44 1.60 - 7.50 x10E9/L 01/02/2024 10:39 PM [facility] Lymphocyte Absolute 0.33(L) 1.00 - 4.40 x10E9/L 01/02/2024 10:39 PM [facility] Monocyte Absolute 0.10(L) 0.15 - 1.00 x10E9/L 01/02/2024 10:39 PM [facility] Eosinophil Absolute 0.00 0.00 - 0.60 x10E9/L 01/02/2024 10:39 PM [facility] Basophil Absolute 0.00 0.00 - 0.13 x10E9/L 01/02/2024 10:39 PM [facility] Blood BLOOD SPECIMEN / Unknown Venipuncture / Unknown 01/02/2024 8:52 PM CDT 01/02/2024 8:57 PM CDT Mhd Flaco Stafford MD LAB - HEMATOLOGY ORD ERABLES [facility] [address] [place] [address], [facility] [phone] * (ABNORMAL) COMPREHENSIVE METABOLIC PANEL (01/02/2024 8:52 PM CDT) BUN 18 7 - 26 mg/dL 01/02/2024 9:25 PM [facility] Creatinine 0.73 0.56 - 0.96 mg/dL 01/02/2024 9:25 PM [facility] Sodium 139 136 - 145 mmol/L 01/02/2024 9:25 PM [facility] Potassium 3.6 3.5 - 4.5 mmol/L 01/02/2024 9:25 PM [facility] Chloride 108(H) 98 - 107 mmol/L 01/02/2024 9:25 PM [facility] CO2 24 22 - 29 mmol/L 01/02/2024 9:25 PM [facility] Glucose 213(H) 70 - 115 mg/dL 01/02/2024 9:25 PM [facility] Calcium 9.4 8.4 - 10.2 mg/dL 01/02/2024 9:25 PM [facility] Protein Total 6.7 6.0 - 8.3 g/dL 01/02/2024 9:25 PM [facility] Albumin 3.6 3.4 - 5.0 g/dL 01/02/2024 9:25 PM [facility] Bilirubin Total 0.5 0.2 - 1.2 mg/dL 01/02/2024 9:25 PM [facility] Alkaline Phosphatase 69 40 - 150 U/L 01/02/2024 9:25 PM [facility] ALT 35 5 - 55 U/L 01/02/2024 9:25 PM [facility] AST 14 5 - 34 U/L 01/02/2024 9:25 PM [facility] Anion Gap 7 6 - 16 01/02/2024 9:25 PM [facility] BUN/Creatinine Ratio 25(H) 7 - 23 01/02/2024 9:25 PM [facility] Osmolality Calculated 296(H) 275 - 295 mOsm/kg 01/02/2024 9:25 PM [facility] Albumin/Globulin Ratio 1.2 1.1 - 2.3 01/02/2024 9:25 PM CDT [facility] eGFR by CKD-EPI >90 >=90 mL/min/1.7 3 m2 01/02/2024 9:25 PM CDT [facility] Blood BLOOD SPECIMEN / Unknown Venipuncture / Unknown 01/02/2024 8:52 PM CDT 01/02/2024 8:57 PM CDT Remington Stafford MD LAB - CHEMISTRY ORDAzul NAIDU [facility] [address] [place] [address], [place] [phone] * (ABNORMAL) GLUCOSE - POINT OF CARE (01/02/2024 6:07 PM CDT) Glucose WB/POC 195(H) 70 - 115 mg/dL 01/02/2024 8:17 PM CDT [facility] Specimen Type Cap Fingerstick 2023 8:17 PM CDT [facility] Blood BLOOD SPECIMEN / Unknown 01/02/2024 6:07 PM CDT 01/02/2024 8:17 PM CDT Dawn Dias MD LAB - POINT OF CARE ORDERABLES Performing Organization Address [facility]/ZIP Co de Phone Number [address] [address], [place] [phone] * (ABNORMAL) GLUCOSE - POINT OF CARE (01/02/2024 11:04 AM CDT) Glucose WB/POC 169(H) 70 - 115 mg/dL 01/02/2024 8:17 PM CDT [facility] Specimen Type Cap Fingerstick 2023 8:17 PM CDT [facility] Blood BLOOD SPECIMEN / Unknown 01/02/2024 11:04 AM CDT 01/02/2024 8:17 PM CDT Dawn Dias MD LAB - POINT OF CARE ORDERABLES [place] [address] [place] [address], [place] [phone] * (ABNORMAL) GLUCOSE - POINT OF CARE (01/02/2024 8:42 AM CDT) Glucose WB/POC 116(H) 70 - 115 mg/dL 01/02/2024 8:45 AM CDT [facility] Specimen Type Cap Fingerstick 2023 8:45 AM CDT [facility] Blood BLOOD SPECIMEN / Unknown 01/02/2024 8:42 AM CDT 01/02/2024 8:45 AM CDT Dawn Dias MD LAB - POINT OF CARE ORDERABLES [facility] [address] [place] [address], [facility] [phone] * (ABNORMAL) HEMOGLOBIN A1C (01/02/2024 6:08 AM CDT) Hemoglobin A1c 6.8(H) <=5.6 % 01/02/2024 9:40 AM CDT [facility] Estimated Average Glucose 148 mg/dL 01/02/2024 9:40 AM CDT [facility] Comment: HbA1c Interpretation: Normal : < 5.7% Pre-diabetes: 5.7-6.4% Diabetes: Equal to or greater than 6.5% Test results diagnostic of diabetes should be repeated for confirmation. Treatment target values recommended by ADA and other clinical organizations should be used to evaluate metabolic control in patients. Reference: [place] [employer], Standards of Care in Diabetes [...] Cazares PA-C LAB - CHEMISTRY ORD ERABLES Performing Organization Address City/[facility]/ZIP Co de Phone Number [address] [address], [place] [phone] * (ABNORMAL) GLUCOSE - POINT OF CARE (01/01/2024 10:05 PM CDT) Glucose WB/POC 291(H) 70 - 115 mg/dL 01/01/2024 10:09 PM CDT [facility] Specimen Type Arterial 01/01/2024 10:09 PM CDT [facility] Blood BLOOD SPECIMEN / Unknown 01/01/2024 10:05 PM CDT 01/01/2024 10:09 PM CDT Dawn Dias MD LAB - POINT OF CARE ORDERABLES Performing Organization Address [facility]/ZIP Co de Phone Number [address] [address], [place] [phone] * PHOSPHORUS BLOOD (01/01/2024 9:18 PM CDT) Phosphorus 3.5 2.9 - 5.1 mg/dL 01/01/2024 9:56 PM CDT [facility] Blood BLOOD SPECIMEN / Unknown Venipuncture / Unknown 01/01/2024 9:18 PM CDT 01/01/2024 9:31 PM CDT Remington Stafford MD LAB - CHEMISTRY ORDAzul NAIDU [address] [address], [place] [phone] * MAGNESIUM BLOOD (01/01/2024 9:18 PM CDT) Magnesium 2.1 1.6 - 2.6 mg/dL 01/01/2024 9:56 PM CDT [facility] Blood BLOOD SPECIMEN / Unknown Venipuncture / Unknown 01/01/2024 9:18 PM CDT 01/01/2024 9:31 PM CDT Mhd Flaco Stafford MD LAB - CHEMISTRY JON NAIDU [facility] Organization Address City/State/ZIP Co de Phone Number [facility] [address] [place] [address], [facility] [phone] * (ABNORMAL) CBC W AUTO DIFFERENTIAL (01/01/2024 9:18 PM CDT) WBC 3.6(L) 4.0 - 10.7 x10E9/L 01/01/2024 9:55 PM T [facility] RBC Count 2.80(L) 3.90 - 5.20 x10E12/L 01/01/2024 9:55 PM [facility] Hemoglobin 7.9(L) 11.9 - 15.8 g/dL 01/01/2024 9:55 PM [facility] Hematocrit 22.4(L) 34.8 - 46.1 % 01/01/2024 9:55 PM [facility] MCV 80.0 80.0 - 98.0 fL 01/01/2024 9:55 PM [facility] MCH 28.2 26.7 - 33.6 pg 01/01/2024 9:55 PM [facility] MCHC 35.3 31.7 - 36.3 g/dL 01/01/2024 9:55 PM [facility] RDW-CV 15.7(H) 11.3 - 14.8 % 01/01/2024 9:55 PM [facility] Platelet Count 32(L) 150 - 420 x10E9/L 01/01/2024 9:55 PM [facility] MPV 11.3 7.8 - 11.4 fL 01/01/2024 9:55 PM [facility] Preliminary Absolute Neutrophil 3.14 1.60 - 7.50 x10E9/L 01/01/2024 9:55 PM [facility] Comment:Preliminary ANC pend ing manual confirmation Neutrophil % 87.5(H) 41.0 - 74.0 % 01/01/2024 9:55 PM [facility] Lymphocyte % 7.2(L) 17.0 - 47.0 % 01/01/2024 9:55 PM CDT [facility] Monocyte % 4.7 3.0 - 11.0 % 01/01/2024 9:55 PM [facility] Eosinophil % 0.0 0.0 - 7.0 % 01/01/2024 9:55 PM [facility] Basophil % 0.0 0.0 - 1.6 % 01/01/2024 9:55 PM [facility] Immature Granulocytes % 0.6 0.0 - 1.0 % 01/01/2024 9:55 PM [facility] Neutrophil Absolute 3.14 1.60 - 7.50 x10E9/L 01/01/2024 9:55 PM [facility] Lymphocyte Absolute 0.26(L) 1.00 - 4.40 x10E9/L 01/01/2024 9:55 PM [facility] Monocyte Absolute 0.17 0.15 - 1.00 x10E9/L 01/01/2024 9:55 PM [facility] Eosinophil Absolute 0.00 0.00 - 0.60 x10E9/L 01/01/2024 9:55 PM [facility] Basophil Absolute 0.00 0.00 - 0.13 x10E9/L 01/01/2024 9:55 PM [facility] Blood BLOOD SPECIMEN / Unknown Venipuncture / Unknown 01/01/2024 9:18 PM CDT 01/01/2024 9:31 PM CDT Mhd Flaco Stafford MD LAB - HEMATOLOGY ORD ERABLES [facility] [address] [place] [address], [facility] [phone] * (ABNORMAL) COMPREHENSIVE METABOLIC PANEL (01/01/2024 9:18 PM CDT) BUN 18 7 - 26 mg/dL 01/01/2024 9:56 PM T [facility] Creatinine 0.74 0.56 - 0.96 mg/dL 01/01/2024 9:56 PM [facility] Sodium 138 136 - 145 mmol/L 01/01/2024 9:56 PM [facility] Potassium 4.4 3.5 - 4.5 mmol/L 01/01/2024 9:56 PM [facility] Chloride 106 98 - 107 mmol/L 01/01/2024 9:56 PM [facility] CO2 23 22 - 29 mmol/L 01/01/2024 9:56 PM [facility] Glucose 297(H) 70 - 115 mg/dL 01/01/2024 9:56 PM [facility] Calcium 9.9 8.4 - 10.2 mg/dL 01/01/2024 9:56 PM [facility] Protein Total 7.0 6.0 - 8.3 g/dL 01/01/2024 9:56 PM [facility] Albumin 3.7 3.4 - 5.0 g/dL 01/01/2024 9:56 PM [facility] Bilirubin Total 0.4 0.2 - 1.2 mg/dL 01/01/2024 9:56 PM [facility] Alkaline Phosphatase 74 40 - 150 U/L 01/01/2024 9:56 PM [facility] ALT 45 5 - 55 U/L 01/01/2024 9:56 PM [facility] AST 26 5 - 34 U/L 01/01/2024 9:56 PM [facility] Anion Gap 9 6 - 16 01/01/2024 9:56 PM [facility] BUN/Creatinine Ratio 24(H) 7 - 23 01/01/2024 9:56 PM [facility] Osmolality Calculated 299(H) 275 - 295 mOsm/kg 01/01/2024 9:56 PM [facility] Albumin/Globulin Ratio 1.1 1.1 - 2.3 01/01/2024 9:56 PM [facility] eGFR by CKD-EPI >90 >=90 mL/min/1.7 3 m2 01/01/2024 9:56 PM [facility] Blood BLOOD SPECIMEN / Unknown Venipuncture / Unknown 01/01/2024 9:18 PM CDT 01/01/2024 9:31 PM CDT Remington Stafford MD LAB - CHEMISTRY OJN NAIDU [address] [address], [place] [phone] * (ABNORMAL) GLUCOSE - POINT OF CARE (01/01/2024 7:58 PM CDT) Glucose WB/POC 263(H) 70 - 115 mg/dL 01/01/2024 8:02 PM CDT [facility] Specimen Type Cap Fingerstick 2023 8:02 PM CDT [facility] Blood BLOOD SPECIMEN / Unknown 01/01/2024 7:58 PM CDT 01/01/2024 8:02 PM CDT Dawn Dias MD LAB - POINT OF CARE ORDERABLES Performing Organization Address City/[facility]/ZIP Co de Phone Number [address] [address], [place] [phone] * (ABNORMAL) GLUCOSE - POINT OF CARE (01/01/2024 4:39 PM CDT) Glucose WB/POC 242(H) 70 - 115 mg/dL 01/01/2024 4:42 PM CDT [facility] Specimen Type Cap Fingerstick 2023 4:42 PM CDT [facility] Blood BLOOD SPECIMEN / Unknown 01/01/2024 4:39 PM CDT 01/01/2024 4:42 PM CDT Dawn Dias MD LAB - POINT OF CARE ORDERABLES [address] [address], [place] [phone] * (ABNORMAL) GLUCOSE - POINT OF CARE (01/01/2024 11:20 AM CDT) Glucose WB/POC 137(H) 70 - 115 mg/dL 01/01/2024 11:28 AM CDT [facility] Specimen Type Cap Fingerstick 2023 11:28 AM CDT [facility] Blood BLOOD SPECIMEN / Unknown 01/01/2024 11:20 AM CDT 01/01/2024 11:28 AM CDT Dawn Dias MD LAB - POINT OF CARE ORDERABLES Performing Organization Address City/State/[facility] Co de Phone Number [facility] [address] [place] [address], [facility] [phone] * CT HEAD WO CONTRAST (01/01/2024 10:45 AM CDT) Anatomical Region Laterality Modality Head Computed Tomogra phy 01/01/2024 10:4 7 AM CDT Impressions 01/01/2024 11:21 AM CDT IMPRESSION: 1. No acute intracranial process. Report dictated by Haleigh Mosquera MD (resident service coordinator). I, Romie Sanchez MD have personally reviewed and interpreted this examination/study. > Interpreting Provider: Romie Sanchez MD on 01/01/2024 11:21 AM Narrative 01/01/2024 11:21 AM CDT PROCEDURE: ??CT HEAD WO CONTRAST, DATE/TIME OF EXAM: ??01/01/2024 10:45 AM, LOCATION ??[facility] INDICATION: W19.XXXA: Fall, initial encounter ADDITIONAL CLINICAL [...] DATE/TIME OF EXAM: 01/01/2024 10:45 AM, LOCATION [facility] INDICATION: W19.XXXA: Fall, initial encounter ADDITIONAL CLINICAL [...] process. Report dictated by Haleigh Mosquera MD (resident service coordinator). I, Romie Sanchez MD have personally reviewed and interpreted this examination/study. > Interpreting Provider: Romie Sanchez MD on 01/01/2024 11:21 AM Rogers Cazares PA-C CT ORDERABLES * TRANSFUSE RED BLOOD CELL LEUKOREDUCED UNIT(S) (01/01/2024 3:44 AM CDT) Dominic Farah MD NURSING - BLOOD PROD TRANSFUSION * TRANSFUSE RED BLOOD CELL LEUKOREDUCED UNIT(S), 1 Units (01/01/2024 3:44 AM CDT) Dominic Farah MD NURSING - BLOOD PROD TRANSFUSION * PREPARE (CROSSMATCH) RBC UNIT(S), 1 Units (01/01/2024 12:40 AM CDT) Unit Description AS1 LR PRBC IRR [facility] Unit ABO O [facility] Unit Rh POS [facility] Product [facility] R04 [facility] Unit Donor # [id number] [facility] Unit Status transfused [facility] Product Code [id number] [facility] Blood Type Barcode 5100 [facility] Expiration Date [id number] S BLOOD BANK LAB Blood Bank BLOOD SPECIMEN / Unknown 12/31/2023 11:16 PM CDT Dominic Farah MD LAB - BLOOD BANK ORD ERABLES [facility] [address] [place] [address], [place] [phone] * TYPE + SCREEN PANEL (12/31/2023 11:13 PM CDT) Antibody Screen NEG 11:52 PM CDT [facility] ABO Rh O POS 12/31/2023 11:52 PM CDT [facility] Blood Bank BLOOD SPECIMEN / Unknown Venipuncture / Unknown 12/31/2023 11:13 PM CDT 12/31/2023 11:16 PM CDT Cheryl Cronin MD LAB - BLOOD BANK ORD ERABLES Performing Organization Address City/[facility]/ZIP Co de Phone Number [facility] [address] [place] [address], [place] [phone] * PHOSPHORUS BLOOD (12/31/2023 8:54 PM CDT) Phosphorus 3.4 2.9 - 5.1 mg/dL 12/31/2023 9:50 PM CDT [facility] Blood BLOOD SPECIMEN / Unknown Venipuncture / Unknown 12/31/2023 8:54 PM CDT 12/31/2023 9:19 PM CDT Remington Stafford MD LAB - CHEMISTRY JON NAIDU [facility] [address] [place] [address], [facility] [phone] * MAGNESIUM BLOOD (12/31/2023 8:54 PM CDT) Pathologist [facility] Magnesium 2.2 1.6 - 2.6 mg/dL 12/31/2023 9:50 PM [facility] Blood BLOOD SPECIMEN / Unknown Venipuncture / Unknown 12/31/2023 8:54 PM CDT 12/31/2023 9:19 PM CDT Mhd Flaco Stafford MD LAB - CHEMISTRY JON NAIDU [facility] Organization Address City/State/ZIP Co de Phone Number [facility] [address] [place] [address], [facility] [phone] * (ABNORMAL) CBC W AUTO DIFFERENTIAL (12/31/2023 8:54 PM CDT) [facility] WBC 5.1 4.0 - 10.7 x10E9/L 12/31/2023 10:17 PM [facility] RBC Count 2.31(L) 3.90 - 5.20 x10E12/L 12/31/2023 10:17 PM [facility] Hemoglobin 6.6(L) 11.9 - 15.8 g/dL 12/31/2023 10:17 PM [facility] Hematocrit 19.1(L) 34.8 - 46.1 % 12/31/2023 10:17 PM [facility] MCV 82.7 80.0 - 98.0 fL 12/31/2023 10:17 PM [facility] MCH 28.6 26.7 - 33.6 pg 12/31/2023 10:17 PM [facility] MCHC 34.6 31.7 - 36.3 g/dL 12/31/2023 10:17 PM [facility] RDW-CV 15.5(H) 11.3 - 14.8 % 12/31/2023 10:17 PM [facility] Platelet Count 41(L) 150 - 420 x10E9/L 12/31/2023 10:17 PM [facility] [facility] MPV 10.9 7.8 - 11.4 fL 12/31/2023 10:17 PM [facility] Preliminary Absolute Neutrophil 3.66 1.60 - 7.50 x10E9/L 12/31/2023 10:17 PM [facility] Comment:Preliminary ANC pend ing manual confirmation Neutrophil % 71.4 41.0 - 74.0 % 12/31/2023 10:17 PM [facility] Lymphocyte % 10.0(L) 17.0 - 47.0 % 12/31/2023 10:17 PM [facility] Monocyte % 18.4(H) 3.0 - 11.0 % 12/31/2023 10:17 PM [facility] Eosinophil % 0.0 0.0 - 7.0 % 12/31/2023 10:17 PM [facility] Basophil % 0.0 0.0 - 1.6 % 12/31/2023 10:17 PM [facility] Immature Granulocytes % 0.2 0.0 - 1.0 % 12/31/2023 10:17 PM [facility] Neutrophil Absolute 3.66 1.60 - 7.50 x10E9/L 12/31/2023 10:17 PM [facility] Lymphocyte Absolute 0.51(L) 1.00 - 4.40 x10E9/L 12/31/2023 10:17 PM [facility] Monocyte Absolute 0.94 0.15 - 1.00 x10E9/L 12/31/2023 10:17 PM [facility] Eosinophil Absolute 0.00 0.00 - 0.60 x10E9/L 12/31/2023 10:17 PM [facility] Basophil Absolute 0.00 0.00 - 0.13 x10E9/L 12/31/2023 10:17 PM [facility] Blood BLOOD SPECIMEN / Unknown Venipuncture / Unknown 12/31/2023 8:54 PM CDT 12/31/2023 9:19 PM CDT d Flaco Stafford MD LAB - HEMATOLOGY ORD ERABLES [facility] [address] [place] [address], [facility] [phone] * (ABNORMAL) COMPREHENSIVE METABOLIC PANEL (12/31/2023 8:54 PM T) BUN 13 7 - 26 mg/dL 12/31/2023 9:50 PM [facility] Creatinine 0.66 0.56 - 0.96 mg/dL 12/31/2023 9:50 PM [facility] Sodium 138 136 - 145 mmol/L 12/31/2023 9:50 PM [facility] Potassium 4.0 3.5 - 4.5 mmol/L 12/31/2023 9:50 PM [facility] Chloride 110(H) 98 - 107 mmol/L 12/31/2023 9:50 PM [facility] CO2 20(L) 22 - 29 mmol/L 12/31/2023 9:50 PM [facility] Glucose 246(H) 70 - 115 mg/dL 12/31/2023 9:50 PM [facility] Calcium 10.0 8.4 - 10.2 mg/dL 12/31/2023 9:50 PM [facility] Protein Total 6.9 6.0 - 8.3 g/dL 12/31/2023 9:50 PM [facility] Albumin 3.7 3.4 - 5.0 g/dL 12/31/2023 9:50 PM [facility] Bilirubin Total 0.5 0.2 - 1.2 mg/dL 12/31/2023 9:50 PM [facility] Alkaline Phosphatase 73 40 - 150 U/L 12/31/2023 9:50 PM [facility] ALT 32 5 - 55 U/L 12/31/2023 9:50 PM [facility] AST 23 5 - 34 U/L 12/31/2023 9:50 PM [facility] Anion Gap 8 6 - 16 12/31/2023 9:50 PM [facility] BUN/Creatinine Ratio 20 7 - 23 12/31/2023 9:50 PM [facility] Osmolality Calculated 294 275 - 295 mOsm/kg 12/31/2023 9:50 PM CDT [facility] Albumin/Globulin Ratio 1.2 1.1 - 2.3 12/31/2023 9:50 PM CDT [facility] eGFR by CKD-EPI >90 >=90 mL/min/1.7 3 m2 12/31/2023 9:50 PM CDT [facility] Blood BLOOD SPECIMEN / Unknown Venipuncture / Unknown 12/31/2023 8:54 PM CDT 12/31/2023 9:19 PM CDT Remington Stafford MD LAB - CHEMISTRY [facility] Performing Organization Address City/[facility]/ZIP Co de Phone Number [address] [address], [facility] [phone] * PHOSPHORUS BLOOD (12/30/2023 8:35 PM CDT) Phosphorus 3.2 2.9 - 5.1 mg/dL 12/30/2023 9:11 PM CDT [facility] Blood BLOOD SPECIMEN / Unknown Venipuncture / Unknown 12/30/2023 8:35 PM CDT 12/30/2023 8:45 PM CDT Remington Stafford MD LAB - CHEMISTRY J[facility] NAIDU Performing Organization Address [facility]/ZIP Co de Phone Number [address] [address], [facility] [phone] * MAGNESIUM BLOOD (12/30/2023 8:35 PM CDT) Magnesium 1.8 1.6 - 2.6 mg/dL 12/30/2023 9:11 PM CDT [facility] Blood BLOOD SPECIMEN / Unknown Venipuncture / Unknown 12/30/2023 8:35 PM CDT 12/30/2023 8:45 PM CDT Remington Stafford MD LAB - CHEMISTRY J[facility] NA[facility] [address] [place] [address], [facility] [phone] * (ABNORMAL) CBC W AUTO DIFFERENTIAL (12/30/2023 8:35 PM CDT) WBC 4.2 4.0 - 10.7 x10E9/L 12/30/2023 10:25 PM [facility] RBC Count 2.60(L) 3.90 - 5.20 x10E12/L 12/30/2023 10:25 PM [facility] Hemoglobin 7.3(L) 11.9 - 15.8 g/dL 12/30/2023 10:25 PM [facility] Hematocrit 21.5(L) 34.8 - 46.1 % 12/30/2023 10:25 PM [facility] MCV 82.7 80.0 - 98.0 fL 12/30/2023 10:25 PM [facility] MCH 28.1 26.7 - 33.6 pg 12/30/2023 10:25 PM [facility] MCHC 34.0 31.7 - 36.3 g/dL 12/30/2023 10:25 PM [facility] RDW-CV 14.8 11.3 - 14.8 % 12/30/2023 10:25 PM [facility] Platelet Count 44(L) 150 - 420 x10E9/L 12/30/2023 10:25 PM [facility] MPV 11.5(H) 7.8 - 11.4 fL 12/30/2023 10:25 PM [facility] Preliminary Absolute Neutrophil 3.40 1.60 - 7.50 x10E9/L 12/30/2023 10:25 PM [facility] Comment:Preliminary ANC pend ing manual confirmation Neutrophil % 81.5(H) 41.0 - 74.0 % 12/30/2023 10:25 PM [facility] Lymphocyte % 11.8(L) 17.0 - 47.0 % 12/30/2023 10:25 PM [facility] Monocyte % 5.3 3.0 - 11.0 % 12/30/2023 10:25 PM CDT [facility] Eosinophil % 0.0 0.0 - 7.0 % 12/30/2023 10:25 PM T [facility] Basophil % 0.2 0.0 - 1.6 % 12/30/2023 10:25 PM [facility] Immature Granulocytes % 1.2(H) 0.0 - 1.0 % 12/30/2023 10:25 PM T [facility] Neutrophil Absolute 3.40 1.60 - 7.50 x10E9/L 12/30/2023 10:25 PM [facility] Lymphocyte Absolute 0.49(L) 1.00 - 4.40 x10E9/L 12/30/2023 10:25 PM [facility] Monocyte Absolute 0.22 0.15 - 1.00 x10E9/L 12/30/2023 10:25 PM [facility] Eosinophil Absolute 0.00 0.00 - 0.60 x10E9/L 12/30/2023 10:25 PM [facility] Basophil Absolute 0.01 0.00 - 0.13 x10E9/L 12/30/2023 10:25 PM [facility] NRBC 1.4(H) <=0.0 /100 WBC 12/30/2023 10:25 PM [facility] Blood BLOOD SPECIMEN / Unknown Venipuncture / Unknown 12/30/2023 8:35 PM CDT 12/30/2023 8:45 PM CDT Mhd Flaco Stafford MD LAB - HEMATOLOGY ORD ERABLES [facility] [address] [place] [address], [facility] [phone] * (ABNORMAL) COMPREHENSIVE METABOLIC PANEL (12/30/2023 8:35 PM CDT) BUN 13 7 - 26 mg/dL 12/30/2023 9:11 PM CDT [facility] Creatinine 0.61 0.56 - 0.96 mg/dL 12/30/2023 9:11 PM [facility] Sodium 139 136 - 145 mmol/L 12/30/2023 9:11 PM [facility] Potassium 4.3 3.5 - 4.5 mmol/L 12/30/2023 9:11 PM [facility] Chloride 109(H) 98 - 107 mmol/L 12/30/2023 9:11 PM [facility] CO2 18(L) 22 - 29 mmol/L 12/30/2023 9:11 PM [facility] Glucose 274(H) 70 - 115 mg/dL 12/30/2023 9:11 PM [facility] Calcium 10.0 8.4 - 10.2 mg/dL 12/30/2023 9:11 PM [facility] Protein Total 7.2 6.0 - 8.3 g/dL 12/30/2023 9:11 PM [facility] Albumin 3.7 3.4 - 5.0 g/dL 12/30/2023 9:11 PM [facility] Bilirubin Total 0.4 0.2 - 1.2 mg/dL 12/30/2023 9:11 PM [facility] Alkaline Phosphatase 86 40 - 150 U/L 12/30/2023 9:11 PM [facility] ALT 26 5 - 55 U/L 12/30/2023 9:11 PM [facility] AST 21 5 - 34 U/L 12/30/2023 9:11 PM [facility] Anion Gap 12 6 - 16 12/30/2023 9:11 PM [facility] BUN/Creatinine Ratio 21 7 - 23 12/30/2023 9:11 PM [facility] Osmolality Calculated 298(H) 275 - 295 mOsm/kg 12/30/2023 9:11 PM [facility] Albumin/Globulin Ratio 1.1 1.1 - 2.3 12/30/2023 9:11 PM [facility] eGFR by CKD-EPI >90 >=90 mL/min/1.7 3 m2 12/30/2023 9:11 PM [facility] Blood BLOOD SPECIMEN / Unknown Venipuncture / Unknown 12/30/2023 8:35 PM CDT 12/30/2023 8:45 PM CDT Remington Stafford MD LAB - CHEMISTRY JON NAIDU [facility] [address] [place] [address], [place] [phone] * EKG 12-LEAD (12/30/2023 7:27 PM CDT) Ventricular Rate 110 BPM H MUSE Atrial Rate 110 BPM [facility] P-R Interval 136 ms [facility] QRS Duration ms 74 ms [facility] Q-T Interval ms 318 ms [facility] QTC Calculation (Bezet) 430 ms [facility] Calculated P [place] 38 degrees SL MUSE Calculated R [place] 17 degrees [facility] Calculated T [place] 15 degrees [facility] Interpretation EKG SINUS TACHYCARDIA OTHERWISE NORMAL ECG WHEN COMPARED WITH ECG OF 30-DEC-2023 19:27, NO SIGNIFICANT CHANGE SINCE PRIOR TRACING Confirmed by MD CECELIA, [id number] ([id number]) on 01/01/2024 9:19:26 AM [facility] 12/30/2023 7:27 PM CDT 01/01/2024 9:19 AM CDT Cheryl Cronin MD ECG ORDERABLES Performing Organization Address [facility] Co de Phone Number [facility] documented in this encounter Visit Diagnoses Diagnosis 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 Tachycardia Tachycardia, unspecified Fall, initial encounter 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 IIH (idiopathic intracranial hypertension) Benign intracranial hypertension Tachycardia Tachycardia, unspecified documented in this encounter Administered Medications Inactive Administered Medications - up to 3 most recent administrations Medication Order MAR Action Action Date Dose Rate Site 0.9% NaCl infusion ADS Med 1 dose, Starting on 01/04/24 at 1125, Until 01/04/24 at 1130, Created by cabinet override $ New Bag/Syringe 01/04/2024 11:30 AM CDT 250 mL 0.9% NaCl infusion rate and volume at 20 mL/hr, 250 mL, ONCE PRN, Starting on Fri01/04/24 at 0847, Until Fri01/04/24 at 1456, Normal Saline flush bag for blood and blood product administration 0.9% NaCl injection 1-10 mL 1-10 mL, Intracatheter, PRN, Other, peripheral line flush, Starting on Fri12/30/23 at 1710, Until Fri01/04/24 at 1456, Flush peripheral IV catheter with 1-10 mL of normal saline before and after medications and prn to clear blood from the line or to verify patency. $ Given 12/31/2023 9:27 AM CDT 10 mL 0.9% NaCl injection 3 mL 3 mL, Intracatheter, EVERY 8 HOURS, First dose on Fri12/30/23 at 1745, Until Discontinued, Flush peripheral IV catheter with 3 mL of normal saline every 8 hours. $ Given 01/04/2024 5:28 AM CDT 3 mL $ Given 01/03/2024 9:28 PM CDT 3 mL $ Given 01/03/2024 2:09 PM CDT 10 mL acetaminophen (Tylenol) tablet 1,000 mg 1,000 mg, Oral, Once, 1 dose, On Fri12/31/23 at 1815, Patient preference for lesser PRN pain meds [...] patient cannot tolerate oral intake $ Given 12/31/2023 6:18 PM CDT 1,000 mg acetaminophen (Tylenol) tablet 500 mg 500 mg, Oral, EVERY 6 HOURS PRN, Mild Pain, Moderate Pain, Fever, Headache, Starting on Fri01/01/24 at 2042, Until Fri01/04/24 at 1456, Patient preference for lesser PRN pain meds [...] patient cannot tolerate oral intake $ Given 01/02/2024 8:43 AM CDT 500 mg artificial tears ophthalmic solution 1 drop 1 drop, Each Eye, 3 TIMES DAILY PRN, Dry Eyes, Starting on Fri12/31/23 at 1014, Until 01/04/24 at 1456 cytarabine (Cytosar) 6,700 mg in 0.9% NaCl IV 597 mL infusion 6,700 mg (rounded from 6,720 mg = 3,000 mg/m2 ? 2.24 m2 Treatment Plan BSA from Recorded weight), at 199 mL/hr, Administer over 3 Hours, Intravenous, ONCE, 1 dose, On Fri12/30/23 at 2230, . PREMEDICATION(s): should be administered at least 30 minutes prior to infusion $ New Bag/Syringe 12/30/2023 10:34 PM CDT 6,700 mg 199 mL/hr cytarabine (Cytosar) 6,700 mg in 0.9% NaCl IV 597 mL infusion 6,700 mg (rounded from 6,720 mg = 3,000 mg/m2 ? 2.24 m2 Treatment Plan BSA from Recorded weight), at 199 mL/hr, Administer over 3 Hours, Intravenous, EVERY 12 HOURS, 2 doses, First dose on Ally 01/01/24 at 1000, Last dose on Fri01/01/24 at 2200, . PREMEDICATION(s): should be administered at least 30 minutes prior to infusion $ New Bag/Syringe 01/01/2024 10:10 PM CDT 6,700 mg 199 mL/hr $ New Bag/Syringe 01/01/2024 10:03 AM CDT 6,700 mg 199 m L/hr cytarabine (Cytosar) 6,700 mg in 0.9% NaCl IV 597 mL infusion 6,700 mg (rounded from 6,720 mg = 3,000 mg/m2 ? 2.24 m2 Treatment Plan BSA from Recorded weight), at 199 mL/hr, Administer over 3 Hours, Intravenous, EVERY 12 HOURS, 2 doses, First dose on 01/03/24 at 1000, Last dose on 01/03/24 at 2200, . PREMEDICATION(s): should be administered at least 30 minutes prior to infusion $ New Bag/Syringe 01/03/2024 10:09 PM CDT 6,700 mg 199 mL/hr $ New Bag/Syringe 01/03/2024 10:26 AM CDT 6,700 mg 199 m L/hr dexAMETHasone (Decadron) 0.1 % ophthalmic suspension 2 drop 2 drop, Each Eye, FOUR TIMES DAILY, 32 doses, First dose on Fri12/30/23 at 1545, Last dose on Fri01/07/24 at 1000, Shake well before using. $ Given 01/04/2024 11:50 AM CDT 2 drops $ Given 01/04/2024 5:28 AM CDT 2 drops $ Given 01/03/2024 8:19 PM CDT 2 drops dexAMETHasone (Decadron) injection 8 mg 8 mg, Intravenous, ONCE, 1 dose, On Ally 01/01/24 at 0930, Administer 30 minutes prior to chemotherapy ONLY IF patient did not take oral dexamethasone. $ Given 01/01/2024 9:26 AM CDT 8 mg dexAMETHasone (Decadron) injection 8 mg 8 mg, Intravenous, ONCE, 1 dose, On 01/03/24 at 0930, Administer 30 minutes prior to chemotherapy ONLY IF patient did not take oral dexamethasone. $ Given 01/03/2024 9:41 AM CDT 8 mg dextrose 10 % IV bolus 12.5 g, at 468.75 mL/hr, Intravenous, PRN, Other, Bedside Glucose less than 70 mg/dL -If NOT able to eat and/or NPO and with IV Access, Starting on Ally 01/01/24 at 1022, Until 01/04/24 at 1456, If NOT able to eat and/or NPO and with IV Access: For Bedside Glucose 54-69 mg/dL give 12.5 g Dextrose IV STAT For Bedside Glucose LESS than 54 mg/dl verify with a second Bedside Glucose (from a different site) and give 25 g Dextrose IV STAT Re-check and Re-treat blood glucose EVERY , 10-25 minutes until blood glucose GREATER than or equal to 80 mg/dl. NOTIFY PROVIDER OF HYPOGLYCEMIC EVENT. dextrose 10 % IV bolus 25 g, at 937.5 mL/hr, Intravenous, PRN, Other, Bedside Glucose less than 70 mg/dL -If NOT able to eat and/or NPO and with IV Access, Starting on Ally 01/01/24 at 1022, Until 01/04/24 at 1456, If NOT able to eat and/or NPO and with IV Access: For Bedside Glucose 54-69 mg/dL - give 12.5 g Dextrose IV STAT For Bedside Glucose LESS than 54 mg/dl - verify with a second Bedside Glucose (from a different site) and give 25 g Dextrose IV STAT Re-check and Re-treat blood glucose EVERY - 10-25 minutes until blood glucose GREATER than or equal to 80 mg/dl. - If repeat bedside glucose 54-79 give 12.5 g Dextrose IV STAT NOTIFY PROVIDER OF HYPOGLYCEMIC EVENT. famotidine (Pepcid) tablet 20 mg 20 mg, Oral, 2 TIMES DAILY, 60 doses, First dose on Fri12/30/23 at 2100, Last dose on Fri01/29/24 at 0900 $ Given 01/04/2024 9:13 AM CDT 20 mg $ Given 01/03/2024 8:19 PM CDT 20 mg $ Given 01/03/2024 9:41 AM CDT 20 mg glucagon (Glucagen) injection 1 mg 1 mg, Subcutaneous, PRN, Bedside Glucose less than 70 mg/dL - If NOT able to eat and/or NPO and withOUT IV Access, Starting on Fri01/01/24 at 1022, Until [place] 01/04/24 at 1456, If NOT able to eat and/or NPO and NO IV Access: For Bedside glucose 54-69 mg/dL ? - Give 1 mg subcutaneous For Bedside Glucose LESS than 54 mg/dl ? -?verify with a second bedside glucose (from a different site) ? -?Give 1 mg subcutaneous Re-check and Re-treat blood glucose EVERY 10-25 minutes until blood glucose GREATER than or equal to 80 mg/dl.? NOTIFY PROVIDER OF HYPOGLYCEMIC EVENT. Reconstitute vial with 1 mL of sterile water for injection for a final concentration of 1 mg/mL; shake vial gently; use immediately and discard unused portion insulin aspart (NovoLOG) pen 0-4 Units 0-4 Units, Subcutaneous, AT BEDTIME, First dose on Ally 01/01/24 at 2100, Until Discontinued, Low Dose: Correction Insulin Bedside glucose should be done within 30-60 minutes of correction insulin administration. BG (mg/dL) Corrective Action LESS than 70 follow Hypoglycemic guidelines, 70-220 NO bedtime correction insulin 221-260 GIVE 1 unit of insulin 261-300 GIVE 2 units of insulin 301-350 GIVE 3 units of insulin Greater than 350 GIVE 4 units of insulin and notify physician $ Given 01/03/2024 8:20 PM CDT 2 Units Right Arm $ Given 01/01/2024 10:11 PM CDT 2 Units A bdominal Tissue insulin aspart (NovoLOG) pen 0-6 Units 0-6 Units, Subcutaneous, 3 TIMES DAILY WITH MEALS, First dose on Ally 01/01/24 at 1200, Until Discontinued, Low Dose: Correction Insulin Bedside glucose should be done within 30-60 minutes of correction insulin administration. BG (mg/dL) Corrective Action LESS than 70 follow Hypoglycemic guidelines, 70-180 NO Correction insulin, 181-220 GIVE 2 units of insulin, 221-260 GIVE 3 units of insulin, 261-300 GIVE 4 units of insulin, 301-350 GIVE 5 units of insulin, Greater than 350 GIVE 6 units of insulin and notify physician. If the patient is NPO: DO NOT HOLD correction insulin If patient is eating meals and has orders for Mealtime insulin, combine and give at the same time. $ Given 01/02/2024 6:10 PM CDT 2 Units Abdominal Tissue $ Given 01/01/2024 4:57 PM CDT 3 Units Ab dominal Tissue ondansetron (disintegrating) (Zofran ODT) tablet 8 mg 8 mg, Oral, 2 TIMES DAILY PRN, Nausea/Vomiting, Starting on e 12/30/23 at 1535, Until 01/04/24 at 1456, Second line therapy if failed prochlorperazine with continued loss of appetite and > 3 episodes of vomiting. Do not administer if patient received palonosetron within 48 hours or exceed ondansetron 32 mg in 24 hours. Use IV if patient unable to tolerate oral administration. Dissolved orally on tongue ondansetron (Zofran) injection 8 mg 8 mg, Intravenous, 2 TIMES DAILY PRN, Nausea/Vomiting, Starting on 12/30/23 at 1535, Until 01/04/24 at 1456, Administer over 2 to 5 minutes. Second line therapy if failed prochlorperazine with continued loss of appetite and > 3 episodes of vomiting. Do not administer if patient received palonosetron within 48 hours or exceed ondansetron 32 mg in 24 hours. Use IV if patient unable to tolerate oral administration. ondansetron (Zofran) injection 8 mg 8 mg, Intravenous, EVERY 12 HOURS, 1 dose, First dose on Fri12/30/23 at 2200, Administer over 2 to 5 minutes. Administer 30 minutes prior to chemotherapy. $ Given 12/30/2023 9:52 PM CDT 8 mg ondansetron (Zofran) injection 8 mg 8 mg, Intravenous, EVERY 12 HOURS, 2 doses, First dose on Fri01/01/24 at 0930, Last dose on Fri01/01/24 at 2130, Administer over 2 to 5 minutes. Administer 30 minutes prior to chemotherapy. $ Given 01/01/2024 9:31 PM CDT 8 mg $ Given 01/01/2024 9:27 AM CDT 8 mg ondansetron (Zofran) injection 8 mg 8 mg, Intravenous, EVERY 12 HOURS, 2 doses, First dose on Fri01/03/24 at 0930, Last dose on [facility] 01/03/24 at 2130, Administer over 2 to 5 minutes. Administer 30 minutes prior to chemotherapy. $ Given 01/03/2024 9:28 PM CDT 8 mg $ Given 01/03/2024 9:40 AM CDT 8 mg prochlorperazine (Compazine) injection 5 mg 5 mg, Intravenous, EVERY 4 HOURS PRN, Nausea/Vomiting, Starting on Fri12/30/23 at 1535, Until Fri01/04/24 at 1456, Max intravenous rate = 5 mg/min First line therapy for Grade 1 nausea, loss of appetite, or initial onset of vomiting 1-2 episodes. Use IV if patient unable to tolerate oral administration prochlorperazine (Compazine) tablet 10 mg 10 mg, Oral, EVERY 4 HOURS PRN, Nausea/Vomiting, Starting on Fri12/30/23 at 1535, Until 01/04/24 at 1456, First line therapy for Grade 1 nausea, loss of appetite, or initial onset of vomiting 1-2 episodes. Use IV if patient unable to tolerate oral administration valACYclovir (Valtrex) tablet 500 mg 500 mg, Oral, 2 TIMES DAILY, 60 doses, First dose on Fri12/30/23 at 2100, Last dose on Fri01/29/24 at 0900, Indication for anti-infective therapy: Chronic prophylaxis $ Given 01/04/2024 9:13 AM CDT 500 mg $ Given 01/03/2024 8:19 PM CDT 500 mg $ Given 01/03/2024 9:41 AM CDT 500 mg documented in this encounter Active and Recently Administered Medications Times are shown in CDT. Scheduled Medication Order 01/02/2024 01/03/2024 01/04/2024 0.9% NaCl injection 3 mL(Linked Group 1) 3 mL, Intracatheter, EVERY 8 HOURS, First dose on Fri12/30/23 at 1745, Until Discontinued, Flush peripheral IV catheter with 3 mL of normal saline every 8 hours. 0611 (Canceled Entry - Provider: Flor Upton RN)1327 (Canceled Entry - Provider: Ce Stafford RN)2126 (Canceled Entry - Provider: Flor Upton RN) 0600 (Canceled Entry - Provider: Flor Upton RN)1409 ($ Given - Provider: Ericka Thomas RN)2128 ($ Given - Provider: Sasha Mora, CORRIE) 0528 ($ Given - Provider: Sasha Mora, RN) cytarabine (Cytosar) 6,700 mg in 0.9% NaCl IV 597 mL infusion (COMPLETED) 6,700 mg (rounded from 6,720 mg = 3,000 mg/m2 ? 2.24 m2 Treatment Plan BSA from Recorded weight), at 199 mL/hr, Administer over 3 Hours, Intravenous, EVERY 12 HOURS, 2 doses, First dose on Fri01/03/24 at 1000, Last dose on Fri01/03/24 at 2200, . PREMEDICATION(s): should be administered at least 30 minutes prior to infusion 1026 ($ New Bag/Syringe - Provider: Ericka Thomas RN)1330 (Stopped - Provider: Ericka Thomas RN)2209 ($ New Bag/Syringe - Provider: Sasha Mora, CORRIE) 0111 (Stopped - Provider: Sasha Mora, RN) dexAMETHasone (Decadron) 0.1 % ophthalmic suspension 2 drop 2 drop, Each Eye, FOUR TIMES DAILY, 32 doses, First dose on Fri12/30/23 at 1545, Last dose on Fri01/07/24 at 1000, Shake well before using. 0605 ($ Given - Provider: Flor Upton RN)1015 ($ Given - Provider: Ce Stafford, RN)1407 ($ Given - Provider: Ce Stafford, RN)2048 ($ Given - Provider: Flor Upton, CORRIE) 0556 ($ Given - Provider: Flor Upton RN)0940 ($ Given - Provider: Ericka Thomas, CORRIE)1409 ($ Given - Provider: Ericka Thomas, RN)2019 ($ Given - Provider: Sasha Mora, RN) 0528 ($ Given - Provider: Sasha Mora, RN)1150 ($ Given - Provider: Ericka Thomas, CORRIE) dexAMETHasone (Decadron) injection 8 mg (COMPLETED) 8 mg, Intravenous, ONCE, 1 dose, On 01/03/24 at 0930, Administer 30 minutes prior to chemotherapy ONLY IF patient did not take oral dexamethasone. 0941 ($ Given - Provider: Ericka Thomas RN) famotidine (Pepcid) tablet 20 mg 20 mg, Oral, 2 TIMES DAILY, 60 doses, First dose on Fri12/30/23 at 2100, Last dose on Fri01/29/24 at 0900 0844 ($ Given - Provider: Ce Stafford, CORRIE)2047 ($ Given - Provider: Flor Upton RN) 0941 ($ Given - Provider: Ericka Thomas, CORRIE)2018 ($ Given - Provider: Sasha Mora, CORRIE) 0913 ($ Given - Provider: Ericka Thomas, CORRIE) insulin aspart (NovoLOG) pen 0-4 Units 0-4 Units, Subcutaneous, AT BEDTIME, First dose on Fri01/01/24 at 2100, Until Discontinued, Low Dose: Correction Insulin Bedside glucose should be done within 30-60 minutes of correction insulin administration. BG (mg/dL) Corrective Action LESS than 70 follow Hypoglycemic guidelines, 70-220 NO bedtime correction insulin [id number] GIVE 1 unit of insulin [id number] GIVE 2 units of insulin [phone] GIVE 3 units of insulin Greater than 350 GIVE 4 units of insulin and notify physician 2125 (Not Administered - Provider: Flor Upton RN - Reason: Per Administration Instructions) 2019 ($ Given - Provider: Sasha Mora, RN) insulin aspart (NovoLOG) pen 0-6 Units 0-6 Units, Subcutaneous, 3 TIMES DAILY WITH MEALS, First dose on Fri01/01/24 at 1200, Until Discontinued, Low Dose: Correction Insulin Bedside glucose should be done within 30-60 minutes of correction insulin administration. BG (mg/dL) Corrective Action LESS than 70 follow Hypoglycemic guidelines, 70-180 NO Correction insulin, 181-220 GIVE 2 units of insulin, 221-260 GIVE 3 units of insulin, 261-300 GIVE 4 units of insulin, 301-350 GIVE 5 units of insulin, Greater than 350 GIVE 6 units of insulin and notify physician. If the patient is NPO: DO NOT HOLD correction insulin If patient is eating meals and has orders for Mealtime insulin, combine and give at the same time. 0843 (Not Administered - Provider: Ce Stafford RN - Reason: Per Administration Instructions - Comment: BG 116)1211 (Not Administered - Provider: Ce Stafford RN - Reason: Per Administration Instructions - Comment: BG 169)1810 ($ Given - Provider: Ce Stafford RN - Comment: BG 195) 0800 (Not Administered - Provider: Ericka Thomas RN - Reason: Per Administration Instructions)1200 (Not Administered - Provider: Ericka Thomas RN - Reason: Per Administration Instructions)1813 (Not Administered - Provider: Ericka Thomas RN - Reason: Per Administration Instructions) 0913 (Not Administered - Provider: Ericka Thomas RN - Reason: Per Administration Instructions)1200 (Due) ondansetron (Zofran) injection 8 mg (COMPLETED) 8 mg, Intravenous, EVERY 12 HOURS, 2 doses, First dose on 01/03/24 at 0930, Last dose on 01/03/24 at 2130, Administer over 2 to 5 minutes. Administer 30 minutes prior to chemotherapy. 0940 ($ Given - Provider: Ericka Thomas RN)2128 ($ Given - Provider: Sasha Mora, CORRIE) valACYclovir (Valtrex) tablet 500 mg 500 mg, Oral, 2 TIMES DAILY, 60 doses, First dose on Fri12/30/23 at 2100, Last dose on Fri01/29/24 at 0900, Indication for anti-infective therapy: Chronic prophylaxis 0844 ($ Given - Provider: Ce Stafford, RN)2047 ($ Given - Provider: Flor Upton, RN) 0941 ($ Given - Provider: Ericka Thomas, RN)2018 ($ Given - Provider: Sasha Mora, RN) 0913 ($ Given - Provider: Ericka Thomas, RN) PRN Medication Order 01/02/2024 01/03/2024 01/04/2024 0.9% NaCl infusion rate and volume at 20 mL/hr, 250 mL, ONCE PRN, Starting on 01/04/24 at 0847, Until 01/04/24 at 1456, Normal Saline flush bag for blood and blood product administration 0.9% NaCl injection 1-10 mL(Linked Group 1) 1-10 mL, Intracatheter, PRN, Other, peripheral line flush, Starting on Fri12/30/23 at 1710, Until Fri01/04/24 at 1456, Flush peripheral IV catheter with 1-10 mL of normal saline before and after medications and prn to clear blood from the line or to verify patency. acetaminophen (Tylenol) tablet 500 mg 500 mg, Oral, EVERY 6 HOURS PRN, Mild Pain, Moderate Pain, Fever, Headache, Starting on [facility] 01/01/24 at 2042, Until 01/04/24 at 1456, Patient preference for lesser PRN pain meds [...] first unless patient cannot tolerate oral intake 0843 ($ Given - Provider: Ce Stafford RN) artificial tears ophthalmic solution 1 drop 1 drop, Each Eye, 3 TIMES DAILY PRN, Dry Eyes, Starting on Fri12/31/23 at 1014, Until 01/04/24 at 1456 dextrose 10 % IV bolus(Linked Group 2) 12.5 g, at 468.75 mL/hr, Intravenous, PRN, Other, Bedside Glucose less than 70 mg/dL -If NOT able to eat and/or NPO and with IV Access, Starting on [facility] 01/01/24 at 1022, Until [facility] 01/04/24 at 1456, If NOT able to eat and/or NPO and with IV Access: For Bedside Glucose 54-69 mg/dL give 12.5 g Dextrose IV STAT For Bedside Glucose LESS than 54 mg/dl verify with a second Bedside Glucose (from a different site) and give 25 g Dextrose IV STAT Re-check and Re-treat blood glucose EVERY , 10-25 minutes until blood glucose GREATER than or equal to 80 mg/dl. NOTIFY PROVIDER OF HYPOGLYCEMIC EVENT. dextrose 10 % IV bolus(Linked Group 2) 25 g, at 937.5 mL/hr, Intravenous, PRN, Other, Bedside Glucose less than 70 mg/dL -If NOT able to eat and/or NPO and with IV Access, Starting on [facility] 01/01/24 at 1022, Until [facility] 01/04/24 at 1456, If NOT able to eat and/or NPO and with IV Access: For Bedside Glucose 54-69 mg/dL - give 12.5 g Dextrose IV STAT For Bedside Glucose LESS than 54 mg/dl - verify with a second Bedside Glucose (from a different site) and give 25 g Dextrose IV STAT Re-check and Re-treat blood glucose EVERY - 10-25 minutes until blood glucose GREATER than or equal to 80 mg/dl. - If repeat bedside glucose 54-79 give 12.5 g Dextrose IV STAT NOTIFY PROVIDER OF HYPOGLYCEMIC EVENT. glucagon (Glucagen) injection 1 mg(Linked Group 2) 1 mg, Subcutaneous, PRN, Bedside Glucose less than 70 mg/dL - If NOT able to eat and/or NPO and withOUT IV Access, Starting on [facility] 01/01/24 at 1022, Until [facility] 01/04/24 at 1456, If NOT able to eat and/or NPO and NO IV Access: For Bedside glucose 54-69 mg/dL ? - Give 1 mg subcutaneous For Bedside Glucose LESS than 54 mg/dl ? -?verify with a second bedside glucose (from a different site) ? -?Give 1 mg subcutaneous Re-check and Re-treat blood glucose EVERY 10-25 minutes until blood glucose GREATER than or equal to 80 mg/dl.? NOTIFY PROVIDER OF HYPOGLYCEMIC EVENT. Reconstitute vial with 1 mL of sterile water for injection for a final concentration of 1 mg/mL; shake vial gently; use immediately and discard unused portion glucose (Diabetic Use) oral gel Oral, PRN, Other, Bedside Glucose less than 70 mg/dL, Starting on [facility] 01/01/24 at 1022, Until 01/04/24 at 1456, If able to take oral medications: For Bedside Glucose 54 - 69 mg/dL Give 15 grams of oral carbohydrates - 1 glucose gel (see MAR) If patient refuses glucose gel, then offer: - 4 ounces of fruit juice OR - 4 ounces non-diet soda OR - 8 ounces of fat-free milk For Bedside Glucose LESS than 54 mg/dL verify with a second Bedside Glucose (from a different site) - If pt is symptomatic, do not delay treatment - If accuracy of the POC glucose is in question, confirm glucose with a STAT laboratory test Give 30 grams of oral carbohydrates - 2 glucose gels (see MAR) If patient refuses glucose gel, then offer: - 8 ounces of fruit juice OR - 8 ounces non-diet soda OR - 16 ounces of fat-free milk Re-check and Re-treat blood glucose EVERY 10-25 minutes until blood glucose GREATER than or equal to 80 mg/dl. - If on recheck, bedside glucose 54-79 mg/dL - Give 15 grams of oral carbohydrates (see above for choices) NOTIFY PROVIDER OF HYPOGLYCEMIC EVENT. ondansetron (disintegrating) (Zofran ODT) tablet 8 mg 8 mg, Oral, 2 TIMES DAILY PRN, Nausea/Vomiting, Starting on 12/30/23 at 1535, Until 01/04/24 at 1456, Second line therapy if failed prochlorperazine with continued loss of appetite and > 3 episodes of vomiting. Do not administer if patient received palonosetron within 48 hours or exceed ondansetron 32 mg in 24 hours. Use IV if patient unable to tolerate oral administration. Dissolved orally on tongue ondansetron (Zofran) injection 8 mg 8 mg, Intravenous, 2 TIMES DAILY PRN, Nausea/Vomiting, Starting on 12/30/23 at 1535, Until 01/04/24 at 1456, Administer over 2 to 5 minutes. Second line therapy if failed prochlorperazine with continued loss of appetite and > 3 episodes of vomiting. Do not administer if patient received palonosetron within 48 hours or exceed ondansetron 32 mg in 24 hours. Use IV if patient unable to tolerate oral administration. prochlorperazine (Compazine) injection 5 mg 5 mg, Intravenous, EVERY 4 HOURS PRN, Nausea/Vomiting, Starting on Fri12/30/23 at 1535, Until Fri01/04/24 at 1456, Max intravenous rate = 5 mg/min First line therapy for Grade 1 nausea, loss of appetite, or initial onset of vomiting 1-2 episodes. Use IV if patient unable to tolerate oral administration prochlorperazine (Compazine) tablet 10 mg 10 mg, Oral, EVERY 4 HOURS PRN, Nausea/Vomiting, Starting on Fri12/30/23 at 1535, Until Fri01/04/24 at 1456, First line therapy for Grade 1 nausea, loss of appetite, or initial onset of vomiting 1-2 episodes. Use IV if patient unable to tolerate oral administration No Frequency Medication Order 01/02/2024 01/03/2024 01/04/2024 0.9% NaCl infusion ADS Med (COMPLETED) 1 dose, Starting on Fri01/04/24 at 1125, Until Fri01/04/24 at 1130, Created by cabinet override 1130 ($ New Bag/Syri nge - Provider: Ericka Thomas RN) Linked Groups Order Group 1: SALINE LOCK, INSERT AND MAINTAIN (CANCELED) Routine, CONTINUOUS, Starting on Fri12/30/23 at 1715, Until Specified, New collection And 0.9% NaCl injection 3 mLJump to med 3 mL, Intracatheter, EVERY 8 HOURS, First dose on Fri12/30/23 at 1745, Until Discontinued, Flush peripheral IV catheter with 3 mL of normal saline every 8 hours. And 0.9% NaCl injection 1-10 mLJump to med 1-10 mL, Intracatheter, PRN, Other, peripheral line flush, Starting on Fri12/30/23 at 1710, Until Fri01/04/24 at 1456, Flush peripheral IV catheter with 1-10 mL of normal saline before and after medications and prn to clear blood from the line or to verify patency. Group 2: dextrose 10 % IV bolusJump to med 12.5 g, at 468.75 mL/hr, Intravenous, PRN, Other, Bedside Glucose less than 70 mg/dL -If NOT able to eat and/or NPO and with IV Access, Starting on [facility] 01/01/24 at 1022, Until 01/04/24 at 1456, If NOT able to eat and/or NPO and with IV Access: For Bedside Glucose 54-69 mg/dL give 12.5 g Dextrose IV STAT For Bedside Glucose LESS than 54 mg/dl verify with a second Bedside Glucose (from a different site) and give 25 g Dextrose IV STAT Re-check and Re-treat blood glucose EVERY , 10-25 minutes until blood glucose GREATER than or equal to 80 mg/dl. NOTIFY PROVIDER OF HYPOGLYCEMIC EVENT. Or dextrose 10 % IV bolusJump to med 25 g, at 937.5 mL/hr, Intravenous, PRN, Other, Bedside Glucose less than 70 mg/dL -If NOT able to eat and/or NPO and with IV Access, Starting on [facility] 01/01/24 at 1022, Until 01/04/24 at 1456, If NOT able to eat and/or NPO and with IV Access: For Bedside Glucose 54-69 mg/dL - give 12.5 g Dextrose IV STAT For Bedside Glucose LESS than 54 mg/dl - verify with a second Bedside Glucose (from a different site) and give 25 g Dextrose IV STAT Re-check and Re-treat blood glucose EVERY - 10-25 minutes until blood glucose GREATER than or equal to 80 mg/dl. - If repeat bedside glucose 54- 79 give 12.5 g Dextrose IV STAT NOTIFY PROVIDER OF HYPOGLYCEMIC EVENT. Or glucagon (Glucagen) injection 1 mgJump to med 1 mg, Subcutaneous, PRN, Bedside Glucose less than 70 mg/dL - If NOT able to eat and/or NPO and withOUT IV Access, Starting on [facility] 01/01/24 at 1022, Until [facility] 01/04/24 at 1456, If NOT able to eat and/or NPO and NO IV Access: For Bedside glucose 54- 69 mg/dL ? - Give 1 mg subcutaneous For Bedside Glucose LESS than 54 mg/dl ? -?verify with a second bedside glucose (from a different site) ? -?Give 1 mg subcutaneous Re-check and Re-treat blood glucose EVERY 10-25 minutes until blood glucose GREATER than or equal to 80 mg/dl.? NOTIFY PROVIDER OF HYPOGLYCEMIC EVENT. Reconstitute vial with 1 mL of sterile water for injection for a final concentration of 1 mg/mL; shake vial gently; use immediately and discard unused portion documented in this encounter Care Teams Fruit Cutter Relationship Specialty Start Date End Date Nilam Mayers MD [address] [place] [phone] PCP - General Family Medicine 09/04/23 04/18/24 documented as of this encounter
--- OUTSIDE RECORDS SUMMARY | 2024-08-31 21:27 | XMS_ITS | Encounter Summary ---
Author Organization [facility] Address [address] [place], [place] [address] [address] Care Team Providers Care Manager Of Finance Name Role Phone Nilam Mayers MD Primary Care Provider [phone] Reason for Referral * Radiology Services (Routine) - Closed Specialty Diagnoses / Procedures Referred By Henryac t Referred To Contact Hematology-Oncology Diagnoses Acute myeloid leukemia in remission (HCC) Procedures CT ABDOMEN PELVIS W CONTRAST Britni Winston PA-C [address] [place] [address] Referral ID Status Reason Start Date Expiration Date Visits Re quested Visits Authorized [id number] Closed 01/16/2024 01/15/2025 1 1 Reason for Visit * Radiology Services (Routine) - Closed Specialty Diagnoses / Procedures Referred By Ratna sher Referred To Contact Hematology-Oncology Diagnoses Acute myeloid leukemia in remission (HCC) Procedures CT ABDOMEN PELVIS W CONTRAST Britni Winston PA-C [address] [place] [address] Referral ID Status Reason Start Date Expiration Date Visits Re quested Visits Authorized [id number] Closed 01/16/2024 01/15/2025 1 1 Encounter Details Date Type Department Care Team (Latest Contact Info) Description 01/16/2024 1:22 PM CDT - 01/16/2024 2:59 PM CDT Hospital Encounter [facility] CAT SCAN [address] [place] [phone] Britni Winston, PABaronC [address] [place] [address] Discharge Disposition: Home or Self Care Social [...] and heating? Not hard at all 12/30/2023 [facility] [place] of Occupat ional Health - Occupational Stress [...] or slept in a penitentiary (including now)? Yes 12/30/2023 Sex and Gender [...] 12/01/2023 04/30/2024 posaconazole (Noxafil) 100 MG tabletIndications:Ac ione myeloid leukemia in remission (HCC) Take 3 (three) tablets by mouth daily with dinner 90 tablet 5 12/15/2023 05/20/2024 potassium chloride ER 10 MEQ tablet Take 2 (two) tablets by mouth once daily 30 tablet 3 12/15/2023 03/02/2024 prochlorperazine (Compazine) 10 MG tablet Take 1 (one) tablet by mouth every 8 hours as needed for Nausea/Vomiting 04/30/2024 valACYclovir (Valtrex) 500 MG tabletIndications:Ac ione myeloid leukemia in remission (HCC) Take 1 (one) tablet by mouth 2 times daily 60 tablet 11 11/03/2023 08/23/2024 Shae Anaya (Hemorrhoidal Hygiene) 50 % 1 Pad by Apply externally route as needed 100 Each 1 01/14/2024 02/06/2024 documented as of this encounter Plan of Treatment Upcoming Encounters Date Type Department Care Team (Late st Contact Info) Description 10/27/2024 10:30 AM FOOD INSPECTOR Appointment [facility] [address] [place] [address] Hussain Carias MD [address] [place] [phone] Britni Winston PA-C [facility] [place] [address] 11/17/2024 9:00 AM FOOD INSPECTOR Office Visit [facility] - Ophthalmology [address] [place] [phone] Song Hobson MD [address] [place] [address] [place] [phone] documented as of this encounter Procedures Procedure Name Priority Date/Time Associated Diagnosis Comments CT ABDOMEN PELVIS W CONTRAST Routine 01/16/2024 1:45 PM CDT Acute myeloid leukemia in remission (HCC) documented in this encounter Results * CT ABDOMEN PELVIS W CONTRAST (01/16/2024 [...] > Dictated by Jeremy Valdes MD (resident programs assistant). > Dictated by Jeremy Valdes MD ([employer]) 01/16/2024 2:09 PM IArlyn MD have personally [...] > Dictated by Jeremy Valdes MD (resident programs assistant). > Dictated by Jeremy Valdes MD ([employer]) 01/16/2024 2:09 PM IArlyn MD have personally reviewed and interpreted this examination/study. > Interpreting Provider: Arlyn Gannon MD on 01/16/2024 4:49 PM Britni Winston PA-C CT ORDERABLES documented in this encounter Visit Diagnoses Diagnosis 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 documented in this encounter Administered Medications Inactive Administered Medications - up to 3 most recent administrations Medication Order MAR Action Action Date Dose Rate Site iopamidol (Isovue 370) 76 % contrast Intravenous, CONTRAST ONCE, Starting on 01/16/24 at 1322, Until 01/17/24 at 0140 $ Given - Contrast 01/16/2024 1:46 PM CDT 100 mL documented in this encounter Care Teams Manager Of Finance Relationship Specialty Start Date End Date Nilam Mayers MD [address] [place] [phone] PCP - General Family Medicine 09/04/23 04/18/24 documented as of this encounter
--- OUTSIDE RECORDS SUMMARY | 2024-08-31 21:27 | XMS_ITS | Encounter Summary ---
Author Organization [facility] Address [address] [place], [place] [address] [address] Care Team Providers Care Painter Supervisor Name Role Phone Nilam Mayers MD Primary Care Provider [phone] Encounter Details Date Type Department Care Team (Late st Contact Info) Description 01/17/2024 Orders Only [facility] - Hematology/Oncology [address] [place] [phone] Remington Stafford MD [address] [facility] [place], [place] [phone] Rectal fissure Social History Tobacco Use Types Packs/Day [...] and heating? Not hard at all 01/19/2024 [facility] [place] of Occupat ional Health - [...] st Contact Info) Description 10/27/2024 10:30 AM MILL WORKER Appointment [facility] [address] [place] [address] Hussain Carias MD [address] [place] [phone] Britni Winston, PA-C [address] [place], [place] [phone] 11/17/2024 9:00 AM MILL WORKER Office Visit [facility] - Ophthalmology [address] [place] [address], [place] [phone] Song Hobson MD [facility] [place] [phone] documented as of this encounter Visit Diagnoses Diagnosis Rectal fissure- Primary Anal fissure documented in this encounter Care Teams Painter Supervisor Relationship Specialty Start Date End Date iNlam Mayers MD [address] [place] [phone] PCP - General Family Medicine 09/04/23 04/18/24 documented as of this encounter
--- OUTSIDE RECORDS SUMMARY | 2024-08-31 21:27 | XMS_ITS | Encounter Summary ---
Author Organization [facility] Address [address] [place], [place] [address] [address] Care Team Providers Care Watch Engine Operator Name Role Phone Nilam Mayers MD Primary Care Provider [phone] Encounter Details Date Type Department Care Team (Latest Contact Info) Description 01/12/2024 9:28 AM CDT - 01/12/2024 11:59 PM T Hospital Encounter [facility] [address] [place] [address] Hussain Carias MD [address] [place] [address] Britni Winston, PABaronC [address] [place] [address] Discharge Disposition: Home or Self [...] and heating? Not hard at all 12/30/2023 [facility] - Occupational Stress [...] Sign Reading Time Taken Comments Blood Pressure 134/83 01/12/2024 1:31 PM CDT Pulse 98 01/12/2024 1:31 PM CDT Temperature 36.7 ??C (98 ??F) 01/12/2024 1:31 PM CDT Respiratory Rate 18 01/12/2024 1:31 PM CDT Oxygen Saturation 100% 01/12/2024 1:31 PM CDT Inhaled Oxygen Concentration - - Weight 109.8 kg (242 lb) 01/12/2024 10:14 AM CDT Height - - Body Mass Index 44.26 12/30/2023 4:50 PM CDT documented in this [...] st Contact Info) Description 10/27/2024 10:30 AM FAMILY RESOURCE SPECIALIST Appointment [facility] [address] [place] [address] Hussain Carias MD [address] [place] [address] Britni Winston, PA-C [address] [place] [address] 11/17/2024 9:00 AM FAMILY RESOURCE SPECIALIST Office Visit [facility] - Ophthalmology [address] [place] [phone] Song Hobson MD [address] [place] [address] [place] [address] Scheduled Orders Name Type Priority Associated Diagnoses Order Schedule TRANSFUSE PLATELET PHERESIS UNIT(S), 1 Units NSG BLD TRANSFUSION Routine Acute myeloid leukemia in remission (HCC) Transfusion for 1 Occurrences starting 01/12/2024 documented as of this encounter Procedures Procedure Name Priority Date/Time Associated Diagnosis Comments PREPARE PLATELET PHERESIS UNIT(S) Routine 01/12/2024 1:35 PM CDT Acute myeloid leukemia in remission (HCC) TRANSFUSE RED BLOOD CELL LEUKOREDUCED UNIT(S) Routine 01/12/2024 11:37 AM CDT Acute myeloid leukemia in remission (HCC) PREPARE RBC LEUKOREDUCED UNIT Routine 01/12/2024 11:23 AM CDT Acute myeloid leukemia in remission (HCC) URIC ACID BLOOD STAT 01/12/2024 10:22 AM CDT Acute myeloid leukemia in remission (HCC) TYPE + SCREEN PANEL STAT 01/12/2024 1 0:22 AM CDT Acute myeloid leukemia in remission (HCC) CBC W AUTO DIFFERENTIAL STAT 01/12/2024 10:22 AM CDT Acute myeloid leukemia in remission (HCC) COMPREHENSIVE METABOLIC PANEL STAT 01/12/2024 10:22 AM CDT Acute myeloid leukemia in remission (HCC) PHOSPHORUS BLOOD STAT 01/12/2024 10:2 2 AM CDT Acute myeloid leukemia in remission (HCC) MAGNESIUM BLOOD STAT 01/12/2024 10:22 AM CDT Acute myeloid leukemia in remission (HCC) LDH BLOOD STAT 01/12/2024 10:22 AM CDT Acute myeloid leukemia in remission (HCC) documented in this encounter Results * PREPARE PLATELET PHERESIS UNIT(S), 1 Units (01/12/2024 1:35 PM CDT) Unit Description LRPLTphere B7 IR [facility] Unit ABO AB [facility] Unit Rh POS [facility] Product Number P31 [facility] Unit Donor # [id number] [facility] Unit Status [facility] Product Code [id number] [facility] Blood Type Barcode 8400 [facility] Expiration Date [facility] Unit Description LRPLTphere B7 IR [facility] Unit ABO AB [facility] Unit Rh POS [facility] Product Number P30 [facility] Unit Donor # [id number] [facility] Unit Status [facility] Product Code [id number] [facility] Blood Type Barcode 8400 [facility] Expiration Date [facility] Blood Bank BLOOD SPECIMEN / Unknown 01/12/2024 10:31 AM CDT Britni Winston PA-C LAB - BLOOD BANK ORD ERABLES Performing Organization Address [facility]/ZIP Co de Phone Number [facility] [address] [place] [address], [facility] [phone] * TRANSFUSE RED BLOOD CELL LEUKOREDUCED UNIT(S) (01/12/2024 1:32 PM CDT) Britni Winston PA-C NURSING - BLOOD PROD TRANSFUSION * TRANSFUSE RED BLOOD CELL LEUKOREDUCED UNIT(S), 1 Units (01/12/2024 1:32 PM CDT) Britni Winston PA-C NURSING - BLOOD PROD TRANSFUSION * PREPARE (CROSSMATCH) RBC UNIT(S), 1 Units (01/12/2024 11:23 AM CDT) Unit Description AS1 LR PRBC IRR [facility] Unit ABO O [facility] Unit Rh POS [facility] Product Number R04 [facility] Unit Donor # [id number] [facility] Unit Status transfused [facility] B[facility] OD [facility] Product Code [id number] [facility] Blood Type Barcode 5100 [facility] Expiration Date [id number] S BLOOD BANK LAB Blood Bank BLOOD SPECIMEN / Unknown 01/12/2024 10:31 AM CDT Britni Winston PA-C LAB - BLOOD BANK ORD ERAJANES Performing Organization Address City/[facility]/ZIP Co de Phone Number [facility] [address] [place] [address], [place] [phone] * TYPE + SCREEN PANEL (01/12/2024 10:22 AM CDT) Antibody Screen NEG 11:16 AM CDT [facility] ABO Rh O POS 01/12/2024 11:16 AM CDT [facility] Blood Bank BLOOD SPECIMEN / Unknown Venipuncture / Unknown 01/12/2024 10:22 AM CDT 01/12/2024 10:31 AM CDT Britni Winston PA-C LAB - BLOOD BANK ORD ERAJANES Performing Organization Address [facility]/ZIP Co de Phone Number [facility] [address] [place] [address], [facility] [phone] * URIC ACID BLOOD (01/12/2024 10:22 AM CDT) Uric Acid 3.7 2.6 - 6.0 mg/dL 01/12/2024 10:57 AM CDT [facility] Blood BLOOD SPECIMEN / Unknown Venipuncture / Unknown 01/12/2024 10:22 AM CDT 01/12/2024 10:28 AM CDT Britni Winston PA-C LAB - CHEMISTRY JON NAIDU Performing Organization Address [facility] Co de Phone Number [address] [address], [facility] [phone] * LDH BLOOD (01/12/2024 10:22 AM CDT) Pathologist [facility] LDH Total 180 125 - 243 Units/L 01/12/2024 10:57 AM CDT [facility] Blood BLOOD SPECIMEN / Unknown Venipuncture / Unknown 01/12/2024 10:22 AM CDT 01/12/2024 10:28 AM CDT Britni Winston PA-C LAB - CHEMISTRY JON NAIDU Performing Organization Address City/[facility]/ZIP Co de Phone Number [address] [address], [facility] [phone] * (ABNORMAL) CBC WITH DIFFERENTIAL (01/12/2024 10:22 AM CDT) Pathologist [facility] WBC 0.2(LL) 4.0 - 10.7 x10E9/L 01/12/2024 11:18 AM CDT [facility] Comment:No differential repo rted. WBC count <0.5 RBC Count 2.44(L) 3.90 - 5.20 x10E12/L 01/12/2024 11:18 AM [facility] Hemoglobin 6.8(L) 11.9 - 15.8 g/dL 01/12/2024 11:18 AM [facility] Hematocrit 18.9(L) 34.8 - 46.1 % 01/12/2024 11:18 AM [facility] MCV 77.5(L) 80.0 - 98.0 fL 01/12/2024 11:18 AM [facility] MCH 27.9 26.7 - 33.6 pg 01/12/2024 11:18 AM [facility] MCHC 36.0 31.7 - 36.3 g/dL 01/12/2024 11:18 AM [facility] RDW-CV 13.0 11.3 - 14.8 % 01/12/2024 11:18 AM [facility] Platelet Count 22(L) 150 - 420 x10E9/L 01/12/2024 11:18 AM [facility] Preliminary Absolute Neutrophil 01/12/2024 11:18 AM [facility] Comment:This is a corrected result. Previous result was 0.01 x10E9/L on 01/12/2024 at 1044 CDT Blood BLOOD SPECIMEN / Unknown Venipuncture / Unknown 01/12/2024 10:22 AM CDT 01/12/2024 10:29 AM CDT Britni Winston PA-C LAB - HEMATOLOGY ORD ERABLES Performing Organization Address City/State/[facility] Co de Phone Number [facility] [address] [place] [address], [facility] [phone] * MAGNESIUM BLOOD (01/12/2024 10:22 AM CDT) Magnesium 1.8 1.6 - 2.6 mg/dL 01/12/2024 10:57 AM T [facility] Blood BLOOD SPECIMEN / Unknown Venipuncture / Unknown 01/12/2024 10:22 AM CDT 01/12/2024 10:28 AM CDT Britni Winston PA-C LAB - CHEMISTRY JON Alonzo Organization Address City/State/ZIP Co de Phone Number [facility] [address] [place] [address], [facility] [phone] * (ABNORMAL) COMPREHENSIVE METABOLIC PANEL (01/12/2024 10:22 AM CDT) BUN 11 7 - 26 mg/dL 01/12/2024 10:57 AM [facility] Creatinine 0.58 0.56 - 0.96 mg/dL 01/12/2024 10:57 AM [facility] Sodium 140 136 - 145 mmol/L 01/12/2024 10:57 AM [facility] Potassium 3.8 3.5 - 4.5 mmol/L 01/12/2024 10:57 AM [facility] Chloride 111(H) 98 - 107 mmol/L 01/12/2024 10:57 AM [facility] CO2 20(L) 22 - 29 mmol/L 01/12/2024 10:57 AM [facility] Glucose 194(H) 70 - 115 mg/dL 01/12/2024 10:57 AM [facility] Calcium 9.9 8.4 - 10.2 mg/dL 01/12/2024 10:57 AM [facility] Protein Total 6.9 6.0 - 8.3 g/dL 01/12/2024 10:57 AM [facility] Albumin 3.6 3.4 - 5.0 g/dL 01/12/2024 10:57 AM [facility] Bilirubin Total 0.4 0.2 - 1.2 mg/dL 01/12/2024 10:57 AM [facility] Alkaline Phosphatase 76 40 - 150 U/L 01/12/2024 10:57 AM [facility] ALT 24 5 - 55 U/L 01/12/2024 10:57 AM [facility] AST 11 5 - 34 U/L 01/12/2024 10:57 AM [facility] Anion Gap 9 6 - 16 01/12/2024 10:57 AM [facility] BUN/Creatinine Ratio 19 7 - 23 01/12/2024 10:57 AM T [facility] Osmolality Calculated 295 275 - 295 mOsm/kg 01/12/2024 10:57 AM [facility] Albumin/Globulin Ratio 1.1 1.1 - 2.3 01/12/2024 10:57 AM [facility] eGFR by CKD-EPI >90 >=90 mL/min/1.7 3 m2 01/12/2024 10:57 AM T [facility] Blood BLOOD SPECIMEN / Unknown Venipuncture / Unknown 01/12/2024 10:22 AM CDT 01/12/2024 10:28 AM CDT Britni Winston PA-C LAB - CHEMISTRY JON NAIDU [address] [address], [place] [phone] * PHOSPHORUS BLOOD (01/12/2024 10:22 AM CDT) Phosphorus 3.4 2.9 - 5.1 mg/dL 01/12/2024 10:57 AM [facility] Blood BLOOD SPECIMEN / Unknown Venipuncture / Unknown 01/12/2024 10:22 AM CDT 01/12/2024 10:28 AM CDT Britni Winston PA-C LAB - CHEMISTRY JON NAIDU [address] [address], [place] [phone] documented in this encounter Visit Diagnoses Diagnosis 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 documented in this encounter Care Teams Watch Engine Operator Relationship Specialty Start Date End Date Nilam Mayers MD [address] [place] [phone] PCP - General Family Medicine 09/04/23 04/18/24 documented as of this encounter
--- OUTSIDE RECORDS SUMMARY | 2024-08-31 21:27 | XMS_ITS | Encounter Summary ---
Author Organization [facility] Address [address] [place], [place] [address] [address] Care Team Providers Care Mechanic Driver Name Role Phone Nilam Mayers MD Primary Care Provider [phone]- [phone] Reason for Visit * Oncology Prior Authorization (Routine) - Authorized Specialty Diagnoses / Procedures Referred By Contac t Referred To Contact Diagnoses Vaginal bleeding Procedures SD INJ MEDROXYPROGESTERNE ACETATE 1 MG Hussain Carias MD [address] [place] [address] [facility] [place] [address] Referral ID Status Reason Start Date Expiration Date V isits Requested Visits Authorized [id number] Authorized 10/14/2023 01/13/2024 1 1 Encounter Details Date Type Department Care Team (Latest Contact Info) Description 01/09/2024 8:08 AM CDT - 01/09/2024 11:59 PM CDT Hospital Encounter [facility] [address] [place] [id number] Hussain Carias MD [address] [place] [address] Britni Winston PABaronC [address] [place] [address] Discharge Disposition: Home or Self [...] and heating? Not hard at all 12/30/2023 [facility] [place] of Occupat ional Health - Occupational Stress [...] slept in a nursing home (including now)? Yes 12/30/2023 Sex and Gender Information Value Date Recorded Sex Assigned at Not on file Gender Identity Female 02/13/2024 1:12 PM CDT Sexual Orientation Not on file documented as of this encounter Last Filed Vital Signs Vital Sign Reading Time Taken Comments Blood Pressure 123/81 01/09/2024 10:38 AM CDT Pulse 100 01/09/2024 10:38 AM CDT Temperature 36.8 ??C (98.2 ??F) 01/09/2024 1 0:38 AM CDT Respiratory Rate 18 01/09/2024 10:3 8 AM CDT Oxygen Saturation 100% 01/09/2024 10: 38 AM CDT Inhaled Oxygen Concentration - - Weight 108.5 kg (239 lb 4.8 oz) 01/09/2024 8:16 AM CDT Height - - Body Mass Index 43.77 12/30/2023 4:50 PM CDT documented in this [...] 12/01/2023 04/30/2024 posaconazole (Noxafil) 100 MG tabletIndications:Ac [place] myeloid leukemia in remission (HCC) Take 3 (three) tablets by mouth daily with dinner 90 tablet 5 12/15/2023 05/20/2024 potassium chloride ER 10 MEQ tablet Take 2 (two) tablets by mouth once daily 30 tablet 3 12/15/2023 03/02/2024 prochlorperazine (Compazine) 10 MG tablet Take 1 (one) tablet by mouth every 8 hours as needed for Nausea/Vomiting 04/30/2024 valACYclovir (Valtrex) 500 MG tabletIndications:Ac [place] myeloid leukemia in remission (HCC) Take 1 (one) tablet by mouth 2 times daily 60 tablet 11 11/03/2023 08/23/2024 documented as of this encounter Plan of Treatment Upcoming Encounters Date Type Department Care Team (Late st Contact Info) Description 10/27/2024 10:30 AM DIESEL INSTRUCTOR Appointment [facility] [address] [place] [address] Hussain Carias MD [address] [place] [phone] Britni Winston PA-C [address] [place] [address] 11/17/2024 9:00 AM DIESEL INSTRUCTOR Office Visit [facility] - Ophthalmology [address] [place] [phone] Song Hobson MD [address] [place] [address] DEPT [place]TH[place] [phone] documented as of this encounter Procedures Procedure Name Priority Date/Time Associated Diagnosis Comments PLATELET COUNT AUTO Routine 01/09/2024 1 0:38 AM CDT Acute myeloid leukemia in remission (HCC) TRANSFUSE PLATELET PHERESIS UNIT(S) Routine 01/09/2024 9:53 AM CDT PREPARE PLATELET PHERESIS UNIT(S) Routine 01/09/2024 9:41 AM CDT URIC ACID BLOOD STAT 01/09/2024 8:25 AM CDT Acute myeloid leukemia in remission (HCC) CBC W AUTO DIFFERENTIAL STAT 01/09/2024 8:25 AM CDT Acute myeloid leukemia in remission (HCC) COMPREHENSIVE METABOLIC PANEL STAT 01/09/2024 8:25 AM CDT Acute myeloid leukemia in remission (HCC) HCG BETA BLOOD QUANTITATIVE STAT 01/09/2024 8:25 AM CDT Acute myeloid leukemia in remission (HCC) PHOSPHORUS BLOOD STAT 01/09/2024 8:25 AM CDT Acute myeloid leukemia in remission (HCC) MAGNESIUM BLOOD STAT 01/09/2024 8:25 AM CDT Acute myeloid leukemia in remission (HCC) LDH BLOOD STAT 01/09/2024 8:25 AM CDT Acute myeloid leukemia in remission (HCC) documented in this encounter Results * TRANSFUSE PLATELET PHERESIS UNIT(S) (01/09/2024 10:39 AM CDT) Britni Winston PA-C NURSING - BLOOD PROD TRANSFUSION * TRANSFUSE PLATELET PHERESIS UNIT(S), 1 Units (01/09/2024 10:39 AM CDT) Britni Winston PA-C NURSING - BLOOD PROD TRANSFUSION * (ABNORMAL) PLATELET COUNT AUTO (01/09/2024 10:38 AM CDT) [facility] Platelet Count 59(L) 150 - 420 x10E9/L 01/09/2024 11:03 AM CDT [facility] Blood BLOOD SPECIMEN / Unknown Venipuncture / Unknown 01/09/2024 10:38 AM CDT 01/09/2024 10:47 AM CDT Britni Winston PA-C LAB - HEMATOLOGY ORD ERABLES Performing Organization Address City/[facility]/ZIP Co de Phone Number [facility] [address] [place] [phone], [facility] [phone] * PREPARE PLATELET PHERESIS UNIT(S), 1 Units (01/09/2024 9:41 AM CDT) [facility] Unit Description LR PLT Phere PRT [facility] Unit ABO O [facility] Unit Rh POS [facility] Product Number [id number] [facility] Unit Donor # [id number] [facility] Unit Status transfused [facility] Product Code [id number] [facility] Blood Type Barcode 5100 [facility] Expiration Date [id number] [facility] Blood Bank BLOOD SPECIMEN / Unknown Britni Winston PA-C LAB - BLOOD BANK ORD ERABLES Performing Organization Address City/[facility]/ZIP Co de Phone Number [facility] [address] [place] [phone], [facility] [phone] * HCG BETA BLOOD QUANTITATIVE (01/09/2024 8:25 AM CDT) [facility] Beta-hCG Total Quantitative <3 mIU/mL 01/09/2024 9:39 AM CDT [facility] Comment: HCG Numeric Result Interpretation: ? Non- [...] - CHEMISTRY JON NAIDU Performing Organization Address [facility]/ZIP Co de Phone Number [address] [address], [place] [phone] * URIC ACID BLOOD (01/09/2024 8:25 AM CDT) Uric Acid 4.1 2.6 - 6.0 mg/dL 01/09/2024 9:02 AM CDT [facility] Blood BLOOD SPECIMEN / Unknown Venipuncture / Unknown 01/09/2024 8:25 AM CDT 01/09/2024 8:32 AM CDT Britni Winston PA-C LAB - CHEMISTRY JON NAIDU Performing Organization Address [facility] Co de Phone Number [address] [address], [place] [phone] * LDH BLOOD (01/09/2024 8:25 AM CDT) Pathologist [facility] LDH Total 200 125 - 243 Units/L 01/09/2024 9:02 AM CDT [facility] Blood BLOOD SPECIMEN / Unknown Venipuncture / Unknown 01/09/2024 8:25 AM CDT 01/09/2024 8:32 AM CDT Britni Winston PA-C LAB - CHEMISTRY JON NAIDU Performing Organization Address City/[facility]/ZIP Co de Phone Number [address] [address], [place] [phone] * (ABNORMAL) CBC WITH DIFFERENTIAL (01/09/2024 8:25 AM CDT) WBC 0.3(LL) 4.0 - 10.7 x10E9/L 01/09/2024 9:11 AM CDT [facility] Comment:No Manual Differenti al performed. WBC count < 0.5 RBC Count 2.65(L) 3.90 - 5.20 x10E12/L 01/09/2024 9:11 AM [facility] Hemoglobin 7.5(L) 11.9 - 15.8 g/dL 01/09/2024 9:11 AM [facility] Hematocrit 21.0(L) 34.8 - 46.1 % 01/09/2024 9:11 AM [facility] MCV 79.2(L) 80.0 - 98.0 fL 01/09/2024 9:11 AM [facility] MCH 28.3 26.7 - 33.6 pg 01/09/2024 9:11 AM [facility] MCHC 35.7 31.7 - 36.3 g/dL 01/09/2024 9:11 AM [facility] RDW-CV 13.5 11.3 - 14.8 % 01/09/2024 9:11 AM [facility] Platelet Count 30(L) 150 - 420 x10E9/L 01/09/2024 9:11 AM [facility] MPV 9.7 7.8 - 11.4 fL 01/09/2024 9:11 AM [facility] Preliminary Absolute Neutrophil 01/09/2024 9:11 AM [facility] Blood BLOOD SPECIMEN / Unknown Venipuncture / Unknown 01/09/2024 8:25 AM CDT 01/09/2024 8:32 AM CDT Britni Winston PA-C LAB - HEMATOLOGY ORD ERABLES Performing Organization Address [facility]/State/[facility] Co de Phone Number [address] [address] [phone] * MAGNESIUM BLOOD (01/09/2024 8:25 AM CDT) Magnesium 1.9 1.6 - 2.6 mg/dL 01/09/2024 9:02 AM [facility] Blood BLOOD SPECIMEN / Unknown Venipuncture / Unknown 01/09/2024 8:25 AM CDT 01/09/2024 8:32 AM CDT Britni Winston PA-C LAB - CHEMISTRY JON NAIDU [facility] Organization Address City/State/ZIP Co de Phone Number [facility] [address] [place] [address], [facility] [phone] * (ABNORMAL) COMPREHENSIVE METABOLIC PANEL (01/09/2024 8:25 AM [facility]) BUN 11 7 - 26 mg/dL 01/09/2024 9:02 AM [facility] Creatinine 0.60 0.56 - 0.96 mg/dL 01/09/2024 9:02 AM [facility] Sodium 138 136 - 145 mmol/L 01/09/2024 9:02 AM [facility] Potassium 3.8 3.5 - 4.5 mmol/L 01/09/2024 9:02 AM [facility] Chloride 109(H) 98 - 107 mmol/L 01/09/2024 9:02 AM [facility] CO2 20(L) 22 - 29 mmol/L 01/09/2024 9:02 AM [facility] Glucose 165(H) 70 - 115 mg/dL 01/09/2024 9:02 AM [facility] Calcium 9.8 8.4 - 10.2 mg/dL 01/09/2024 9:02 AM [facility] Protein Total 6.9 6.0 - 8.3 g/dL 01/09/2024 9:02 AM [facility] Albumin 3.7 3.4 - 5.0 g/dL 01/09/2024 9:02 AM [facility] Bilirubin Total 0.5 0.2 - 1.2 mg/dL 01/09/2024 9:02 AM [facility] Alkaline Phosphatase 74 40 - 150 U/L 01/09/2024 9:02 AM [facility] ALT 26 5 - 55 U/L 01/09/2024 9:02 AM [facility] AST 11 5 - 34 U/L 01/09/2024 9:02 AM [facility] Anion Gap 9 6 - 16 01/09/2024 9:02 AM [facility] BUN/Creatinine Ratio 18 7 - 23 01/09/2024 9:02 AM CDT [facility] Osmolality Calculated 289 275 - 295 mOsm/kg 01/09/2024 9:02 AM T [facility] Albumin/Globulin Ratio 1.2 1.1 - 2.3 01/09/2024 9:02 AM T [facility] eGFR by CKD-EPI >90 >=90 mL/min/1.7 3 m2 01/09/2024 9:02 AM T [facility] Blood BLOOD SPECIMEN / Unknown Venipuncture / Unknown 01/09/2024 8:25 AM CDT 01/09/2024 8:32 AM CDT Britni Winston PA-C LAB - CHEMISTRY JON NAIDU [facility] [address] [place] [address], [facility] [phone] * PHOSPHORUS BLOOD (01/09/2024 8:25 AM CDT) Phosphorus 3.7 2.9 - 5.1 mg/dL 01/09/2024 9:02 AM T [facility] Blood BLOOD SPECIMEN / Unknown Venipuncture / Unknown 01/09/2024 8:25 AM CDT 01/09/2024 8:32 AM CDT Britni Winston PA-C LAB - CHEMISTRY JON NAIDU [address] [address], [place] [phone] documented in this encounter Visit Diagnoses Diagnosis 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 in remission Vaginal bleeding Other specified noninflammatory disorder of vagina documented in this encounter Administered Medications Inactive Administered Medications - up to 3 most recent administrations Medication Order MAR Action Action Date Dose Rate Site medroxyPROGESTERone (Depo-Provera) injection 150 mg 150 mg, Intramuscular, ONCE, 1 dose, On Fri01/09/24 at 0800, Shake well before using., Restricted to Hematology/Oncology providers. Is medication being prescribed by Automation/Controls Manager or Oncologist? Yes $ Given 01/09/2024 9:55 AM CDT 150 mg Right Arm documented in this encounter Care Teams Mechanic Driver Relationship Specialty Start Date End Date Nilam Mayers MD [address] [place] [phone] PCP - General Family Medicine 09/04/23 04/18/24 documented as of this encounter
--- OUTSIDE RECORDS SUMMARY | 2024-08-31 21:27 | XMS_ITS | Encounter Summary ---
Author Organization [facility] Health Address [address] [place], [place] [address] [address] Care Team Providers Care Director Recreation Center Name Role Phone Nilam Mayers MD Primary Care Provider +1- [phone] Reason for Visit * Reason Onset Date Comments Follow-up 01/19/2024 Direct admission from BMT clinic Encounter Details Date Type Department Care Team (Late st Contact Info) Description 01/19/[address] [facility] [address] [place] [phone] Kate Price DO [address] [place] [address] Follow-up (Direct admission from BMT clinic) Social History Tobacco Use Types Packs/Day Years [...] and heating? Not hard at all 01/19/2024 [facility] [place] of Occupat ional Health - Occupational Stress [...] place to sleep or slept in a half-way (including now)? No 01/19/2024 Sex and Gender [...] encounter Miscellaneous Notes * Telephone Encounter - Kate Price DO - 01/19/2024 1:14 PM CDT [facility] Hospital Transfer Call Documentation Date:01/19/2024 Time:1:15 PM Patient: Sarah Mckeon : 1985 Referring Facility Name: NA ([facility] Heme/onc); Dr. Carias Reason for Admission: Direct admission for IV abx Brief Description (including applicable labs, imaging, consultations): 38 yo F with hx of AML and IIH presenting with pancytopenia, no count recovery as of yet. CT abdomen/pelvis on 01/15 showing perirectal fat stranding and possible new PE. Would like patient started oncefepime/flagyl, surgery consulted, CT PE and heparin gtt if necessary. Patient needs on arrival to [facility]: Medicine admissions resident (ask shearer operator for Medicine Admission) to be notified of arrival. Consultation to (N/A if blank): Hematology will follow while admitted I have accepted this patient for direct admission to . If patient awaiting bed for >24hours, an update on patient's clinical condition is requested. Signed:Kate Price DO 01/19/2024 documented in this encounter Plan of Treatment Upcoming Encounters Date Type Department Care Team (Late st Contact Info) Description 10/27/2024 10:30 AM ONCOLOGY REGISTRAR Appointment [facility] [address] [place] [address] Hussani Carias MD [address] [place] [phone] Britni Winston PA-C [address] [place] [address] 11/17/2024 9:00 AM ONCOLOGY REGISTRAR Office Visit [facility] - Ophthalmology [address] [place] [address], [place] [phone] Song Hobson MD [facility]5 [facility] [place] [phone] documented as of this encounter Visit Diagnoses Not on filedocumented in this encounter Care Teams Director Recreation Center Relationship Specialty Start Date End Date Nilam Mayers MD [address] [place] [phone] PCP - General Family Medicine 09/04/23 04/18/24 documented as of this encounter
--- OUTSIDE RECORDS SUMMARY | 2024-08-31 21:27 | XMS_ITS | Encounter Summary ---
Author Organization [facility] Address [address] [place] [address] Care Team Providers Care Therapeutic Mentor Name Role Phone Nilam Mayers MD Primary Care Provider [phone] Reason for Referral * Radiology Services (Routine) - Pending Review Specialty Diagnoses / Procedures Referred By Contac t Referred To Contact Hematology-Oncology Diagnoses Acute myeloid leukemia in remission (HCC) Abscess, perianal Procedures CT CHEST ABDOMEN PELVIS W CONT Rossana Jay APRN-CNP [address] [place] [address] Referral ID Status Reason Start Date Expiration Date V isits Requested Visits Authorized [id number] Pending Review 01/19/2024 01/18/2025 1 1 Reason for Visit * Auth/Cert (Routine) Specialty Diagnoses / Procedures Referred By Contac t Referred To Contact Diagnoses AML Referral ID Status Reason Start Date Expiration Date Visits Re quested Visits Authorized [id number] 1 1 Encounter Details Date Type Department Care Team (Latest Contact Info) Description 01/19/2024 8:52 AM CDT - 01/19/2024 12:59 PM CDT Hospital Encounter [facility] [address] [place] [address] Hussain Carias MD [address] [place] [phone] Rossana Jay APRN-CNP [address] [place] [address] Discharge Disposition: Home or Self Care Social [...] and heating? Not hard at all 01/19/2024 [facility] - Occupational [...] Sign Reading Time Taken Comments Blood Pressure 123/88 01/19/2024 11:40 AM CDT Pulse 67 01/19/2024 11:40 AM CDT Temperature 37 ??C (98.6 ??F) 01/19/2024 11: 40 AM CDT Respiratory Rate 18 01/19/2024 11:4 0 AM CDT Oxygen Saturation 100% 01/19/2024 11: 40 AM CDT Inhaled Oxygen Concentration - - Weight 108.9 kg (240 lb 1.6 oz) 01/19/2024 9:19 AM CDT Height - - Body Mass Index 43.91 12/30/2023 4:50 PM CDT documented in this [...] TIMES DAILY REASONS: PSEUDOTUMOR CEREBRI 01/09/2024 01/23/2024 ciprofloxacin (Cipro) 750 MG tablet Take 1 (one) tablet by mouth every 12 hours for 6 days 12 tablet 01/23/2024 01/23/2024 diazePAM (Valium) 5 MG tablet Take 1 (one) tablet by mouth 3 times daily as needed 30 tablet 01/23/2024 02/06/2024 dilTIAZem 1% CREA Apply to affected area 2 times daily 100 g 1 01/23/2024 03/31/2024 docusate sodium (Colace) 50 MG capsule Take 1 (one) capsule by mouth once daily as needed for Constipation 30 capsule 01/23/2024 02/13/2024 levoFLOXacin (Levaquin) 500 MG tablet Take 1 [...] mouth every 8 hours for 6 days 18 tablet 01/23/2024 01/23/2024 metroNIDAZOLE (Flagyl) 500 MG tablet Take 1 (one) tablet by mouth every 8 hours for 6 days 18 tablet 01/23/2024 01/23/2024 metroNIDAZOLE (Flagyl) 500 MG tablet Take 1 [...] needed for Pain 8 tablet 01/23/2024 02/13/2024 oxyCODONE, immediate release, (Roxicodone) 5 MG tabletIndications:Re ctal fissure Take 1 (one) tablet by mouth every 6 hours as needed for Pain 12 tablet 01/17/2024 01/23/2024 oxyCODONE, immediate release, (Roxicodone) 5 MG tabletIndications:An al or rectal pain Take 1 (one) tablet by mouth every 6 hours as needed for Pain 10 tablet 01/16/2024 01/23/2024 polyethylene glycol 3350 (Miralax) 17 GM/SCOOP powder [...] 01/23/2024 01/28/2024 valACYclovir (Valtrex) 500 MG tabletIndications: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) Take 1 (one) tablet by mouth 2 times daily 60 tablet 11 11/03/2023 08/23/2024 Shae Anaya (Hemorrhoidal Hygiene) 50 % 1 Pad by Apply externally route as needed 100 Each 1 01/14/2024 02/06/2024 documented as of this encounter Progress Notes * Rossana Jay APRN-[facility] - 01/19/2024 11:49 AM CDT Images from the original note were not included. HEMATOLOGY/ONCOLOGY INPATIENT PROGRESS NOTE Name: Sarah Mckeon Age: [age] year old Date of : 1985 Date of Service: 01/19/2024 Reason for Consult: AML HEMATOLOGY & ONCOLOGY [...] in August of 2023 was admitted to [facility] c/o flu like symptoms and ultimately had marrow biopsy revealing 78% blasts on marrow and flow cytometry confirmed NPM1 mutation. Was sent to [facility] for AML. Completed 7 + 3 induction, cou nt recovery BMBx on 09/1723 confirmed remission. Has completed 2 consolidation therapies. 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 All have been worked up both in the inpatient and outpatient setting, well controlled on current medication regimen. Interval History: - C4D21 HiDAC - She was seen in clinic on 01/15 with perianal pain, CT Abd/pelvis showed perirectal fat stranding without associated fluid collections or abnormality of the rectum which likely represents infection/inflammation. CT also noted central filling defect within a segmental branch of the right pulmonary artery which may represent an acute pulmonary embolism. She was started on treatment dose of Levaquin 750 mg QD + Falgyl 500 mg TID on 01/15.She was also prescribed oxycodone 5 mg prn for pain. - She is here for follow up of her symptoms, labs and visit. She reports that her perianal pain hassignificantly worsened over the weekend, pain 10/10 at its worse, taking a dose of oxycodone bringsit down to 3-5 but says oxycodone only helps for an hour before the pain starts trending up. She has pain with sitting or laying and has to sit/lay in certain angle not to aggravate the pain. She has not been able to sleep due to pain. - Denies any fever, chills, rectal bleeding or any perianal drainage. - She had intermittent nose bleed over the weekend. Also has infrequent vaginal spotting. - She had a hard bowel movement on 01/16. - Tachycardic in clinic and visibly seems to be in discomfort. - Continues to be neutropenic. - Denies any shortness or breath, cough or hemoptysis. She will have CT chest PE protocol today forevaluation of filling defect of right pulmonary artery and to r/o PE. BUE and BLE dopplers on 01/15 were negative for any deep vein thrombosis. Review of Systems: Review of Systems Constitutional: Negative for chills, fever, malaise/fatigue and weight loss. HENT: Positive for nosebleeds. Negative for sore throat. Intermittent nose bleed over the weekend per pt Eyes: Negative for blurred vision and double vision. Respiratory: Negative for cough and shortness of breath. Cardiovascular: Negative for chest pain. Gastrointestinal: Negative for abdominal pain, blood in stool, constipation, diarrhea, melena, nausea and vomiting. + for oziel-anal pain Genitourinary: Negative for dysuria, frequency, hematuria and urgency. Intermittent and infrequent vaginal spotting Musculoskeletal: Negative for back pain and myalgias. Skin: Negative for rash. Neurological: Negative for dizziness, tingling and headaches. Endo/Heme/Allergies: Bruises/bleeds easily. Past Medical & Surgical History None / Negative Past Oncology History Oncology History Acute myeloid leukemia in remission (HCC) 09/03/2023 Initial Diagnosis 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 ([facility]-HCC) 09/06/2023 - Chemotherapy cytarabine (Cytosar) 460 mg [...] Active Treatment Days for Sarah Mckeon (until 01/20/2024) 01/02/2024 ONCOLOGY TREATMENT: IP AML CONSOLIDATION - [...] 1 (one) tablet by mouth once daily ??? medroxyPROGESTERone (Depo-Provera) 150 MG/ML vial Inject 1 mL into muscle every 84 days ??? menthol-zinc oxide (Calmoseptine) 0.44-20.6 % ointment Apply to affected area 3 times daily as needed for Other (Apply to perirectal area TID as needed for rectal pain) ??? metroNIDAZOLE (Flagyl) 500 MG tablet Take 1 (one) tablet by mouth every 8 hours ??? ondansetron (Zofran) 8 MG tablet Take one tablet by mouth twice a day 1 hour before midostaurinon days 8 to 21 and one tablet every 12 hours as needed for breakthrough nausea/vomiting. Reasons: Nausea and Vomiting caused by Cancer Chemotherapy (Patient not taking: Reported on 01/07/2024) ??? oxyCODONE, immediate release, (Roxicodone) 5 MG tablet Take 1 (one) tablet by mouth every 6 hours as needed for Pain ??? oxyCODONE, immediate release, (Roxicodone) 5 MG tablet Take 1 (one) tablet by mouth every 6 hours as needed for Pain ??? posaconazole (Noxafil) 100 MG tablet Take [...] tablet by mouth 2 times daily ??? Witch Jaclyn (Hemorrhoidal Hygiene) 50 % 1 Pad by Apply externally route as needed Current Facility-Administered Medications Medication ??? 0.9% NaCl infusion rate and volume ??? metroNIDAZOLE (Flagyl) 500 mg in 100 mL IVPB Allergies No Known Allergies OBJECTIVE Physical Exam Vitals: 01/19/24 1014 01/19/24 1018 01/19/24 1100 01/19/24 1140 BP: 132/90 133/82 123/85 123/88 Pulse: 76 (!) 128 (!) 133 67 Resp: 20 20 18 18 Temp: 98.5 ??F 98.6 ??F 98.4 ??F 98.6 ??F SpO2: 100% 100% 100% 100% Weight: Wt Readings from Last 3 Encounters: 01/19/24 108.9 kg (240 lb 1.6 oz) 01/16/24 109.3 kg (240 lb 14.4 oz) 01/14/24 109.6 kg (241 lb 9.6 oz) Karnofsky/ECO/0 General appearance - appears distress and in pain, sitting in a pillow and at an angle due to perianal pain Mental status - alert, oriented to person, place, and time Mouth - moist mucous membranes, no lesions to oropharynx seen on exam Chest - clear to auscultation b/l, no wheezes, rales or rhonchi, symmetric air entry Heart - tachycardic, regular rhythm, no murmurs Abdomen - soft, nontender, nondistended, bowel sounds present Extremities - no pedal edema, no clubbing or cyanosis Skin - normal coloration and turgor, no rashes noted Rectal - Invasive rectal exam was deferred due to neutropenic status, outer rectum erythematous andmoderate to severe tenderness to touch, did not appreciate any external hemorrhoids or CVC - dressing dry and intact without redness, swelling, or stated tenderness Laboratory Results Recent Labs Component Name 01/19/24 1111 01/19/24 0921 01/16/24 1251 01/16/24 1028 01/14/24 1303 01/14/24 1036 01/07/24 1156 01/07/24 0855 01/03/24212701/02/24205101/01/24211712/31/232053 WBC - 0.4* - 0.2* - 0.2* - 0.5* 2.5* 2.9* 3.6* 5.1 RBC - 2.39* - 2.63* - 2.77* - 2.98* 2.53* 2.63* 2.80* 2.31* HGB - 6.7* - 7.4* - 7.9* - 8.3* 7.1* 7.4* 7.9* 6.6* HCT - 18.6* - 20.4* - 21.6* - 23.6* 20.0* 21.1* 22.4* 19.1* MCV - 77.8* - 77.6* - 78.0* - 79.2* 79.1* 80.2 80.0 82.7 MCHC - 36.0 - 36.3 - 36.6* - 35.2 35.5 35.1 35.3 34.6 PLTCOUNT 35* 10* 42* 17* - 7* - 3* 18* 25* 32* 41* NEUTPCT - - - - - - - - - 84.4* 87.5* 71.4 LYMPHPCT - - - - - - - - - 11.4* 7.2* 10.0* NEUTABS - - - - - - - 0.29* 0.26* 2.35 2.43 2.44 3.14 3.66 LYMPHABS - - - - - - - 0.25* 0.08* 0.33* 0.26* 0.51* BASOABS - - - - - - - - - 0.00 0.00 0.00 - = values in this interval not displayed. Recent Labs Component Name 01/19/24 0901/16/248 01/14/24 1036 POTASSIUM 4.0 3.8 3.8 CO2 20* 19* 21* BUN 10 8 13 CREATININE 0.66 0.63 0.67 EGFR >90 >90 >90 GLUCOSE 201* 181* 200* CALCIUM 9.8 9.7 10.2 MAGNESIUM 1.8 1.8 1.9 PHOS 2.6* 3.2 4.0 ALT 14 21 21 AST 9 11 11 ALKPHOS 69 82 83 Recent Labs Component Name 01/19/2492001/16/24102701/14/24 1036 MAGNESIUM 1.8 1.8 1.9 Recent Labs Component Name 01/19/2492001/16/24102701/14/24 1036 PHOS 2.6* 3.2 4.0 Pathology Results RVP (12/19/23): negative Radiology Results UE/LE dopplers (01/16/24): No??evidence??of??deep??or??superficial??thrombosis??in??the??visualized??veins? ?of??the??bilateral??upper??extremities??by??this??exam No??evidence??of??deep??or??superficial??thrombosis??in??the??visualized??veins? ?of??the??bilateral??upper??extremities??by??this??exam CT abd/pelvis with contrast (01/16/24): 1.Central filling [...] substantially decreased from 09/28/2023. Findings could be media sales representative of small airways disease. Otherwise, [...] and molecular remission after 7+3 -Transferred from [facility] after a BMBX showed 78% blasts [...] consolidation. No more IT treatment planned. - 01/16/24 Labs reviewed. Hgb stable, plts 17. One unit PRBC given for plt <20 in setting of intermittent vaginal bleeding and history of ? retinal hemorrhages. Will monitor for ANC recovery. General transfusion [...] 10/2023. - CTM 5. Anal pain, r/o hemorrhoids vs perianal abscess - Per exam 12/17/23, no areas of erythema or tenderness. - Per pt's history, suspect anal fissure. - CTM. Advised pt to call for any signs of worsening sx and to let us know if sx do not continue toresolve. - Resolved per pt 01/07/24. - Recurred and significantly worsened 01/15 --> CT abd/pelvis with contrast showing perirectal fatstranding without associated fluid collections or abnormality of the rectum which likely represents infection/inflammation. Concern that pt may be early on in abscess development but, due to low WBC count, pt may not have fully presented yet. - 01/16/24: Sent rx for flagyl 500mg TID x 5 days, disp #15 0RF. Advised pt to increase levaquin to 750mg for the next five days. Pt is understanding of this plan. - Also sent for oxycodone 5mg PO QD, signed by Dr. Salomon, disp #10 0RF, and calmoseptine (in case pt's sx related to hemorrhoids) for pain control. 6. Gumline bleeding - Active on exam 01/07/24. - 2/2 thrombocytopenia 2/2 chemotherapy, as well as recent fall 12/31/23. - Resolved . 7. R/o PE - Incidental finding of central filling defect within a segmental branch of the right pulmonary artery per CT abd/pelvis 01/16/24. Pt's case discussed with the radiologist. - UE/LE doppler 01/16/24 prelim negative. - Will obtain CT PE protocol on 01/19/24 - Plan discussed with attending, Dr. Salomon. - Advised pt to call hematology immediately were she to develop any SOB, chest pain, or leg swelling. Pt currently asymptomatic, but tachycardia was noted on VS 01/16/24. At this time, pt's platelets preclude anticoagulation and we will monitor closely. 8. Ovarian mass, r/o teratoma - Incidental finding on 01/15 CT scan: 3.2.8 x 3.0 cm heterogenous mass within the left ovary containing areas of fat density and multiple calcified foci, will refer to gynecology. PLAN: - C4D21 HiDAC consolidation - Labs reviewed; continues to be neutropenic and pancytopenic. Count should be recovering this weekpost her last cycle of chemo. - Administer 1 unit of pRBC for hgb 6.7. Administer 1 unit of platelet for platelet level 10. Obtain post platelet count. - Perianal pain has significant worsened on PO antibiotics and is concerning due to pt's neutropenic status. - Obtain blood cultures X 2, administer cefepime 2g IV and Flagyl 500 mg IV and admit to 7N for IV antibiotics and further management. - Incidental finding of filling defect on CT abd/pelvis, dopplers 01/16 were negative. Will repeat CTChest to rule out PE, will add CT of abdomen and pelvis since her pain has significant worsened since her last CT on 01/15 and there may be a developing abscess. - Consider consulting colorectal surgery inpatient if indicated after repeat CT today. - Deferring rectal exam due to neutropenic status. - If PE is identified on CT plan to keep platelet threshold >30 K and treat with heparin gtt perDr. Carias. - Morphine 2 mg X 1 in clinic for pain, will need oxycodone and morphine prescribed inpatient for pain management. Please avoid Tylenol in neutropenic pts. - Add stool softener colace BID to keep stools soft. DISPOSITION: Admit to 7N for IV antibiotics, pain management and possible surgical consult. MACI Marie- Blood and Marrow Transplant [facility] documented in this encounter Plan of Treatment Upcoming Encounters Date Type Department Care Team (Late st Contact Info) Description 10/27/2024 10:30 AM DIRECTOR OF PROGRAMMING Appointment [facility] [address] [place] [address] Hussain Carias MD [address] [place] [phone] Britni Winston PA-C [address] [place] [address] 11/17/2024 9:00 AM DIRECTOR OF PROGRAMMING Office Visit [facility] - Ophthalmology [address] [place] [phone] Song Hobson MD [address] [place] [address] [place] [address] Pending Results Name Type Priority Associated Diagnoses Date/Time TRANSFUSE RED BLOOD CELL LEUKOREDUCED UNIT(S), 1 Units NSG BLD TRANSFUSION Routine 01/19/2024 11:22 AM CDT TRANSFUSE RED BLOOD CELL LEUKOREDUCED UNIT(S) NSG BLD TRANSFUSION Routine 01/19/2024 1 1:21 AM CDT Scheduled Orders Name Type Priority Associated Diagnoses Orde r Schedule CT CHEST ABDOMEN PELVIS W CONT Imaging Routine Acute myeloid leukemia in remission (HCC) Abscess, perianal 1 Occurrences starting 01/19/2024 until 01/18/2025 documented as of this encounter Procedures Procedure Name Priority Date/Time Associated Diagnosis Comments CULTURE BLOOD Timed 01/19/2024 11:11 AM CDT Abscess, perianal CULTURE BLOOD Timed 01/19/2024 11:11 AM CDT Abscess, perianal PLATELET COUNT AUTO STAT 01/19/2024 1 1:11 AM CDT Acute hypoxic respiratory failure (HCC) PREPARE RBC LEUKOREDUCED UNIT Routine 01/19/2024 10:54 AM CDT EKG 12-LEAD Routine 01/19/2024 10:37 AM CDT Tachycardia TRANSFUSE PLATELET PHERESIS UNIT(S) Routine 01/19/2024 10:14 AM CDT Acute hypoxic respiratory failure (HCC) PREPARE PLATELET PHERESIS UNIT(S) Routine 01/19/2024 10:03 AM CDT Acute hypoxic respiratory failure (HCC) URIC ACID BLOOD STAT 01/19/2024 9:21 AM CDT Acute myeloid leukemia in remission (HCC) TYPE + SCREEN PANEL STAT 01/19/2024 9 :21 AM CDT Acute myeloid leukemia in remission (HCC) CBC W AUTO DIFFERENTIAL STAT 01/19/2024 9:21 AM CDT Acute myeloid leukemia in remission (HCC) COMPREHENSIVE METABOLIC PANEL STAT 01/19/2024 9:21 AM CDT Acute myeloid leukemia in remission (HCC) PHOSPHORUS BLOOD STAT 01/19/2024 9:21 AM CDT Acute myeloid leukemia in remission (HCC) MAGNESIUM BLOOD STAT 01/19/2024 9:21 AM CDT Acute myeloid leukemia in remission (HCC) LDH BLOOD STAT 01/19/2024 9:21 AM CDT Acute myeloid leukemia in remission (HCC) documented in this encounter Results * TRANSFUSE PLATELET PHERESIS UNIT(S) (01/19/2024 11:16 AM CDT) Rossana Jay APRN-[facility] - BLOOD PROD TRANSFUSION * TRANSFUSE PLATELET PHERESIS UNIT(S), 1 Units (01/19/2024 11:16 AM CDT) Rossana Jay APRN-[facility] - BLOOD PROD TRANSFUSION * CULTURE BLOOD (01/19/2024 11:11 AM CDT) Culture No growth day 5 DAVID 01/24/2024 2:[address] [facility] Blood PERIPHERAL BLOOD / Unknown Venipuncture / Unknown 01/19/2024 11:11 AM CDT 01/19/2024 11:26 AM CDT [facility]ana [facility] - MICROBIOLOGY O RDERABLES [facility] [address] [place] [address], [facility] [phone] * CULTURE BLOOD (01/19/2024 11:11 AM CDT) Culture No growth day 5 DAVID 01/24/2024 2:[address] [facility] Blood PERIPHERAL BLOOD / Unknown Venipuncture / Unknown 01/19/2024 11:11 AM CDT 01/19/2024 11:26 AM CDT Rossana [facility] - MICRO[facility]OLOG[facility] O RDERABLES Performing Organization Address City/[facility]/ZIP Co de Phone Number [facility] MICROBIOLOGY [address] [place] [address], [facility] [phone] * (ABNORMAL) PLATELET COUNT AUTO (01/19/2024 11:11 AM CDT) Pathologist [facility] Platelet Count 35(L) 150 - 420 x10E9/L 01/19/2024 11:46 AM CDT [facility] Blood BLOOD SPECIMEN / Unknown Venipuncture / Unknown 01/19/2024 11:11 AM CDT 01/19/2024 11:30 AM CDT Rossanastanislaw Felicianocarol [facility] - HEMATOLOGY ORD ERABLES Performing Organization Address City/[facility]/ZIP Co de Phone Number [facility] [address] [address], [facility] [phone] * PREPARE (CROSSMATCH) RBC UNIT(S), 1 Units (01/19/2024 10:54 AM CDT) [facility] Unit Description AS1 LR PRBC IRR [facility] BLOOD BANK LAB Unit ABO O [facility] B[facility]OD [facility] LAB Unit Rh POS [facility]OD [facility] LAB Product Number R04 [facility] B LOOD BANK LAB Unit Donor # [id number] [facility] BLOOD [facility]ANK LAB Unit Status transfused [facility] BLO OD BANK LAB Product Code [id number] [facility] BLO OD BANK LAB Blood Type Barcode 5100 [facility] BLOOD BANK LAB Expiration Date [id number] S BLOOD BANK LAB Blood Bank BLOOD SPECIMEN / Unknown 01/19/2024 9:41 AM CDT [facility]ana [facility]ol [facility] - [facility]OD [facility]ANK ORD ERABLES Performing Organization Address City/[facility]/ZIP Co de Phone Number [facility] BLOOD BANK LAB [address] [place] [phone], [place] [phone] * EKG 12-LEAD (01/19/2024 10:37 AM CDT) Ventricular Rate 130 BPM [facility] MUSE Atrial Rate 130 BPM [facility] MUSE P-R Interval 132 ms [facility] M[facility] QRS Duration ms 68 ms [facility] MUSE Q-T Interval ms 298 ms [facility] MUSE QTC Calculation (Bezet) 438 ms [facility] MUSE Calculated P [place] 56 degrees [facility] MUSE Calculated R [place] 47 degrees [facility] MUSE Calculated T [place] 13 degrees [facility] MUSE Interpretation EKG SINUS TACHYCARDIA WITH FREQUENT PREMATURE VENTRICULAR COMPLEXES NONSPECIFIC T WAVE ABNORMALITY ABNORMAL ECG NO PREVIOUS ECGS AVAILABLE Confirmed by JULISSA DUMONT MD ([id number]) on 01/25/2024 9:00:56 PM [facility] MUSE 01/19/2024 10:3 7 AM CDT 01/25/2024 9:00 PM CDT [facility] ECG ORDERABLES Performing Organization Address City/[facility]/ZIP Co de Phone Number [facility] MUSE * PREPARE PLATELET PHERESIS UNIT(S), 1 Units (01/19/2024 10:03 AM CDT) Unit Description LRPLTphere B7 IR [facility] BLOOD BANK LAB Unit ABO O [facility] BLOOD BANK LAB Unit Rh POS [facility] BLOOD BANK LAB Product Number P30 [facility] B LOOD BANK LAB Unit Donor # [id number] [facility] BLOOD BANK LAB Unit Status transfused [facility] BLO OD BANK LAB Product Code [id number] [facility] BLO OD BANK LAB Blood Type Barcode 5100 [facility] BLOOD BANK LAB Expiration Date [id number] S BLOOD BANK LAB Blood Bank BLOOD SPECIMEN / Unknown 01/19/2024 9:41 AM CDT Rossana Jay [facility] - BLOOD BANK ORD ERABLES [facility] BLOOD BANK LAB [address] [place] [address], [facility] [phone] * TYPE + SCREEN PANEL (01/19/2024 9:21 AM CDT) Antibody Screen NEG 10:29 AM CDT [facility] BLOOD BANK LAB ABO Rh O POS 01/19/2024 10:29 AM CDT [facility] BLOOD BANK LAB Blood Bank BLOOD SPECIMEN / Unknown Venipuncture / Unknown 01/19/2024 9:21 AM CDT 01/19/2024 9:41 AM CDT Britni Winston PA-C LAB - BLOOD BANK ORD ERAJANES Performing Organization Address [facility]/ZIP Co de Phone Number [facility] BLOOD BANK LAB [address] [place] [phone], [place] [phone] * URIC ACID BLOOD (01/19/2024 9:21 AM CDT) Uric Acid 4.2 2.6 - 6.0 mg/dL 01/19/2024 10:09 AM CDT [facility] Blood BLOOD SPECIMEN / Unknown Venipuncture / Unknown 01/19/2024 9:21 AM CDT 01/19/2024 9:43 AM CDT Britni Winston PA-C LAB - CHEMISTRY ORDE ELYSIA Performing Organization Address [facility]/ZIP Co de Phone Number [facility] [address] [address], [place] [phone] * LDH BLOOD (01/19/2024 9:21 AM CDT) LDH Total 157 125 - 243 Units/L 01/19/2024 10:09 AM CDT [facility] Blood BLOOD SPECIMEN / Unknown Venipuncture / Unknown 01/19/2024 9:21 AM CDT 01/19/2024 9:43 AM CDT Britni Winston PA-C LAB - CHEMISTRY ORDE RABQI Performing Organization Address City/[facility]/ZIP Co de Phone Number [address] [address], [place] [phone] * (ABNORMAL) CBC WITH DIFFERENTIAL (01/19/2024 9:21 AM CDT) WBC 0.4(LL) 4.0 - 10.7 x10E9/L 01/19/2024 10:51 AM [facility] Comment:No Manual Differenti al performed. WBC count < 0.5 RBC Count 2.39(L) 3.90 - 5.20 x10E12/L 01/19/2024 10:51 AM [facility] Hemoglobin 6.7(L) 11.9 - 15.8 g/dL 01/19/2024 10:51 AM [facility] Hematocrit 18.6(L) 34.8 - 46.1 % 01/19/2024 10:51 AM [facility] MCV 77.8(L) 80.0 - 98.0 fL 01/19/2024 10:51 AM [facility] MCH 28.0 26.7 - 33.6 pg 01/19/2024 10:51 AM [facility] MCHC 36.0 31.7 - 36.3 g/dL 01/19/2024 10:51 AM [facility] RDW-CV 13.4 11.3 - 14.8 % 01/19/2024 10:51 AM [facility] Platelet Count 10(LL) 150 - 420 x10E9/L 01/19/2024 10:51 AM [facility] MPV 9.5 7.8 - 11.4 fL 01/19/2024 10:51 AM [facility] Preliminary Absolute Neutrophil 01/19/2024 10:51 AM [facility] Blood BLOOD SPECIMEN / Unknown Venipuncture / Unknown 01/19/2024 9:21 AM CDT 01/19/2024 9:43 AM T Britni Winston PA-C LAB - HEMATOLOGY ORD ERABLES [address] [address], [facility] [phone] * MAGNESIUM BLOOD (01/19/2024 9:21 AM CDT) Magnesium 1.8 1.6 - 2.6 mg/dL 01/19/2024 10:09 AM [facility] Blood BLOOD SPECIMEN / Unknown Venipuncture / Unknown 01/19/2024 9:21 AM CDT 01/19/2024 9:43 AM T Britni Winston PA-C LAB - CHEMISTRY JON NAIDU [facility] [address] [place] [address], [facility] [phone] * (ABNORMAL) COMPREHENSIVE METABOLIC PANEL (01/19/2024 9:21 AM CDT) BUN 10 7 - 26 mg/dL 01/19/2024 10:09 AM [facility] Creatinine 0.66 0.56 - 0.96 mg/dL 01/19/2024 10:09 AM [facility] Sodium 136 136 - 145 mmol/L 01/19/2024 10:09 AM [facility] Potassium 4.0 3.5 - 4.5 mmol/L 01/19/2024 10:09 AM [facility] Chloride 106 98 - 107 mmol/L 01/19/2024 10:09 AM [facility] CO2 20(L) 22 - 29 mmol/L 01/19/2024 10:09 AM [facility] Glucose 201(H) 70 - 115 mg/dL 01/19/2024 10:09 AM [facility] Calcium 9.8 8.4 - 10.2 mg/dL 01/19/2024 10:09 AM [facility] Protein Total 6.9 6.0 - 8.3 g/dL 01/19/2024 10:09 AM [facility] Albumin 3.2(L) 3.4 - 5.0 g/dL 01/19/2024 10:09 AM [facility] Bilirubin Total 0.5 0.2 - 1.2 mg/dL 01/19/2024 10:09 AM [facility] Alkaline Phosphatase 69 40 - 150 U/L 01/19/2024 10:09 AM [facility] ALT 14 5 - 55 U/L 01/19/2024 10:09 AM [facility] AST 9 5 - 34 U/L 01/19/2024 10:09 AM [facility] Anion Gap 10 6 - 16 01/19/2024 10:09 AM [facility] BUN/Creatinine Ratio 15 7 - 23 01/19/2024 10:09 AM [facility] Osmolality Calculated 287 275 - 295 mOsm/kg 01/19/2024 10:09 AM [facility] Albumin/Globulin Ratio 0.9(L) 1.1 - 2.3 01/19/2024 10:09 AM [facility] eGFR by CKD-EPI >90 >=90 mL/min/1.7 3 m2 01/19/2024 10:09 AM [facility] Blood BLOOD SPECIMEN / Unknown Venipuncture / Unknown 01/19/2024 9:21 AM CDT 01/19/2024 9:43 AM CDT Britni Winston PA-C LAB - CHEMISTRY JON NAIDU Performing Organization Address City/[facility]/ZIP Co de Phone Number [address] [address], [facility] [phone] * (ABNORMAL) PHOSPHORUS BLOOD (01/19/2024 9:21 AM CDT) [facility] Signature Phosphorus 2.6(L) 2.9 - 5.1 mg/dL 01/19/2024 10:09 AM T [facility] Blood BLOOD SPECIMEN / Unknown Venipuncture / Unknown 01/19/2024 9:21 AM CDT 01/19/2024 9:43 AM CDT Britni Winston PA-C LAB - CHEMISTRY JON NAIDU [address] [address], [place] [phone] documented in this encounter Visit Diagnoses Diagnosis Acute hypoxic respiratory failure (HCC)- Primary 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 Abscess, perianal Abscess of anal and rectal regions Tachycardia Tachycardia, unspecified documented in this encounter Administered Medications Inactive Administered Medications - up to 3 most recent administrations Medication Order MAR Action Action Date Dose Rate Site cefepime (Maxipime) 2,000 mg in 0.9% NaCl IV 50 mL IVPB 2,000 mg (2 g), at 100 mL/hr, Intravenous, ONCE, 1 dose, On Fri01/19/24 at 1030, Indication for anti-infective therapy: Suspected infection, Site of anti-infective therapy: Urine/Genitourinary, Intra-abdominal $ New Bag/Syringe 01/19/2024 11:17 AM CDT 2,000 mg 100 mL/hr metroNIDAZOLE (Flagyl) 500 mg in 100 mL IVPB 500 mg, at 200 mL/hr, Intravenous, ONCE, 1 dose, On Fri01/19/24 at 1030, Controlled Room Temperature, Indication for anti-infective therapy: Suspected infection, Site of anti-infective therapy: Intra-abdominal $ New Bag/Syringe 01/19/2024 11:52 AM CDT 500 mg 200 mL/hr morphine injection 2 mg 2 mg, Intravenous, ONCE, 1 dose, On Fri01/19/24 at 1030, Patient preference for lesser PRN pain meds [...] patient cannot tolerate oral intake $ Given 01/19/2024 10:18 AM CDT 2 mg morphine injection 2 mg 2 mg, Intravenous, ONCE, 1 dose, On Fri01/19/24 at 1330, Patient preference for lesser PRN pain meds [...] patient cannot tolerate oral intake $ Given 01/19/2024 1:43 PM CDT 2 mg ondansetron (Zofran) injection 4 mg 4 mg, Intravenous, ONCE, 1 dose, On Fri01/19/24 at 1030, Administer over 2 to 5 minutes. $ Given 01/19/2024 10:30 AM CDT 4 mg documented in this encounter Care Teams Therapeutic Mentor Relationship Specialty Start Date End Date Nilam Mayers MD [address] [place] [phone] PCP - General Family Medicine 09/04/23 04/18/24 documented as of this encounter
--- OUTSIDE RECORDS SUMMARY | 2024-08-31 21:27 | XMS_ITS | Encounter Summary ---
Author Organization [facility] Address [address] [place], [place] [address] [address] Care Team Providers Care Dragsaw Operator Name Role Phone Nilam Mayers MD Primary Care Provider [phone] Reason for Visit * Reason Onset Date Comments MEDICATION REFILL 01/16/2024 Encounter Details Date Type Department Care Team (Late st Contact Info) Description 01/16/2024 Refill [facility] [address] [place] [address] Britni Winston, PABaronC [address] [place], [place] [id number] MEDICATION REFILL Social History Tobacco Use Types [...] and heating? Not hard at all 12/30/2023 [facility] - Occupational Stress [...] st Contact Info) Description 10/27/2024 10:30 AM [facility] Appointment [facility] [address] [place] [address] Hussain Carias MD [address] [place] [phone] Britni Winston, PA-C [address] [place], [place] [phone] 11/17/2024 9:00 AM [facility] [employer] Office Visit [facility] - Ophthalmology [address] [place] [phone] Song Hobson MD [facility] DEPT [place] [address] documented as of this encounter Visit Diagnoses Diagnosis Anal or rectal pain- Primary documented in this encounter Care Teams Dragsaw Operator Relationship Specialty Start Date End Date Nilam Mayers MD [address] [place] [phone] PCP - General Family Medicine 09/04/23 04/18/24 documented as of this encounter
--- OUTSIDE RECORDS SUMMARY | 2024-08-31 21:27 | XMS_ITS | Encounter Summary ---
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, unspecified laterality (HCC) Procedures VAS BILATERAL VENOUS DUPLEX LE Britni Winston PA-C [address] [place] [address] Referral ID Status Reason Start Date Expiration Date Visits Re quested Visits Authorized [id number] Open 01/16/2024 01/15/2025 1 1 * Radiology Services (Routine) - Open Specialty Diagnoses / Procedures Referred By Contac t Referred To Contact Diagnoses 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, unspecified laterality (HCC) Procedures VAS BILATERAL VENOUS DUPLEX UBritni Bryant PA-C [address] [place] [address] Referral ID Status Reason Start Date Expiration Date Visits Re quested Visits Authorized [id number] Open 01/16/2024 01/15/2025 1 1 * Radiology Services (Routine) - Closed Specialty Diagnoses / Procedures Referred By Contac t Referred To Contact Hematology-Oncology Diagnoses Acute myeloid leukemia in remission (HCC) Procedures VAS BILATERAL VENOUS DUPLEX UE Britni Winston PA-C [address] [place] [address] Referral ID Status Reason Start Date Expiration Date Visits Re quested Visits Authorized [id number] Closed 01/16/2024 01/15/2025 1 1 * Radiology Services (Routine) - Closed Specialty Diagnoses / Procedures Referred By Contac t Referred To Contact Hematology-Oncology Diagnoses Acute myeloid leukemia in remission (HCC) Procedures VAS BILATERAL VENOUS DUPLEX LE Britni Winston PA-C [address] [place] [address] Referral ID Status Reason Start Date Expiration Date Visits Re quested Visits Authorized [id number] Closed 01/16/2024 01/15/2025 1 1 * Radiology Services (Routine) - Authorized Specialty Diagnoses / Procedures Referred By Contac t Referred To Contact Hematology-Oncology Diagnoses Acute myeloid leukemia in remission (HCC) Anal or rectal pain Procedures CT ANGIO CHEST PULM EMBOLISM Britni Winston PA-C [address] [place] [address] Referral ID Status Reason Start Date Expiration Date V isits Requested Visits Authorized [id number] Authorized 01/16/2024 01/15/2025 1 1 * Radiology Services (Routine) - Closed Specialty Diagnoses / Procedures Referred By Contac t Referred To Contact Hematology-Oncology Diagnoses Acute myeloid leukemia in remission (HCC) Procedures CT ABDOMEN PELVIS W CONTRAST Britni Winston PA-C [address] [place] [address] Referral ID Status Reason Start Date Expiration Date Visits Re quested Visits Authorized [id number] Closed 01/16/2024 01/15/2025 1 1 Encounter Details Date Type Department Care Team (Latest Contact Info) Description 01/16/2024 9:51 AM CDT - 01/16/2024 1:21 PM CDT Hospital Encounter [facility] [address] [place] [address] Hussain Carias MD [address] [place] [address] Britni Winston PA-C [address] [place] [address] Discharge Disposition: Home or Self Care Social [...] and heating? Not hard at all 12/30/2023 [facility] [place] of Occupat ional Health - Occupational Stress [...] Sign Reading Time Taken Comments Blood Pressure 121/91 01/16/2024 12:48 PM CDT Pulse 114 01/16/2024 12:48 PM CDT Temperature 36.9 ??C (98.5 ??F) 01/16/2024 1 2:48 PM CDT Respiratory Rate 20 01/16/2024 12:4 8 PM CDT Oxygen Saturation 100% 01/16/2024 12: 48 PM CDT Inhaled Oxygen Concentration - - Weight 109.3 kg (240 lb 14.4 oz) 2023 10:17 AM CDT Height - - Body Mass Index 44.06 12/30/2023 4:50 PM CDT documented in this [...] 12/01/2023 04/30/2024 posaconazole (Noxafil) 100 MG tabletIndications:Ac pechanga myeloid leukemia in remission (HCC) Take 3 (three) tablets by mouth daily with dinner 90 tablet 5 12/15/2023 05/20/2024 potassium chloride ER 10 MEQ tablet Take 2 (two) tablets by mouth once daily 30 tablet 3 12/15/2023 03/02/2024 prochlorperazine (Compazine) 10 MG tablet Take 1 (one) tablet by mouth every 8 hours as needed for Nausea/Vomiting 04/30/2024 valACYclovir (Valtrex) 500 MG tabletIndications:Ac pechanga myeloid leukemia in remission (HCC) Take 1 (one) tablet by mouth 2 times daily 60 tablet 11 11/03/2023 08/23/2024 Witch Jaclyn (Hemorrhoidal Hygiene) 50 % 1 Pad by Apply externally route as needed 100 Each 1 01/14/2024 02/06/2024 documented as of this encounter Progress Notes * Britni Winston PA-C - 01/16/2024 1:43 PM CDT Images from the original note were not included. HEMATOLOGY/ONCOLOGY INPATIENT PROGRESS NOTE Name: Sarah ALBARRANN: [id number] Age: [age] year old Date of : 1985 Date of Service: 01/16/2024 Reason for Consult: AML HEMATOLOGY & ONCOLOGY [...] in August of 2023 was admitted to [facility] c/o flu like symptoms and ultimately had marrow biopsy revealing 78% blasts on marrow and flow cytometry confirmed NPM1 mutation. Was sent to [facility] for AML. Completed 7 + [...] She was discharged on 12/06/23. Interval History: C4D18 HiDAC Pt presents with acute, moderate to severe perianal pain. Reports it began two days ago and has significantly worsened since starting. She reports extreme discomfort with sitting and has been sittingon pillows leaning off the area. Denies any rectal bleeding, hematochezia, or melena. Pt denies SOB, chest pain, or palpitations. She denies leg swelling. Denies fevers, chills, nausea, vomiting, diarrhea, or constipation. VSS, though noted to be tachycardic today at 114. Continues to be neutropenic. Review of Systems: Review of Systems Constitutional: [...] 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 ([facility]) 09/06/2023 - Chemotherapy cytarabine (Cytosar) 460 mg [...] Active Treatment Days for Sarah Mckeon (until 01/17/2024) 01/02/2024 ONCOLOGY TREATMENT: IP AML CONSOLIDATION - [...] (Patient not taking: Reported on 01/07/2024) ??? posaconazole (Noxafil) 100 MG tablet Take [...] tablet by mouth 2 times daily ??? Shae Jaclyn (Hemorrhoidal Hygiene) 50 % 1 Pad by Apply externally route as needed Current Facility-Administered Medications Medication ??? 0.9% NaCl infusion rate and volume ??? 0.9% NaCl injection 3 mL And ??? 0.9% NaCl injection 1-10 mL Facility-Administered Medications Ordered in Other Encounters Medication ??? iopamidol (Isovue 370) 76 % contrast Allergies No Known Allergies OBJECTIVE Physical Exam Vitals: 01/16/24 1017 01/16/24 1212 01/16/24 1231 01/16/24 1248 BP: 134/86 126/90 136/99 121/91 Pulse: (!) 110 (!) 114 (!) 115 (!) 114 Resp: 20 20 20 20 Temp: 98.2 ??F 98.3 ??F 98.1 ??F 98.5 ??F SpO2: 99% 100% 100% 100% Weight: 109.3 kg (240 lb 14.4 oz) Wt Readings from Last 3 Encounters: 01/16/24 109.3 kg (240 lb 14.4 oz) 01/14/24 109.6 kg (241 lb 9.6 oz) 01/12/24 109.8 kg (242 lb) Karnofsky/ECO/0 General appearance - well-appearing, and in moderate distress secondary to pain requiring to sit inawkward positions to decrease her pain Mental status - alert, oriented to [...] and turgor, no rashes noted Rectal - small amount of erythema, warmth, and moderate tenderness to posterior oziel-anal area at 6o'clock position No specific/pointed tenderness or fluctuance on exam No external hemorrhoids seen on exam CVC - dressing dry and intact without redness, swelling, or stated tenderness Laboratory Results Recent Labs Component Name 01/16/24 1028 01/14/24 1303 01/14/24 1036 01/12/24 1022 01/07/24 1156 01/07/24 0855 01/03/24212701/02/24205101/01/24211712/31/232053 WBC 0.2* - 0.2* 0.2* - 0.5* 2.5* 2.9* 3.6* 5.1 RBC 2.63* - 2.77* 2.44* - 2.98* 2.53* 2.63* 2.80* 2.31* HGB 7.4* - 7.9* 6.8* - 8.3* 7.1* 7.4* 7.9* 6.6* HCT 20.4* - 21.6* 18.9* - 23.6* 20.0* 21.1* 22.4* 19.1* MCV 77.6* - 78.0* 77.5* - 79.2* 79.1* 80.2 80.0 82.7 MCHC 36.3 - 36.6* 36.0 - 35.2 35.5 35.1 35.3 34.6 PLTCOUNT 17* 38* 7* 22* - 3* 18* 25* 32* 41* NEUTPCT - - - - - - - 84.4* 87.5* 71.4 LYMPHPCT - - - - - - - 11.4* 7.2* 10.0* NEUTABS - - - - - 0.29* 0.26* 2.35 2.43 2.44 3.14 3.66 LYMPHABS - - - - - 0.25* 0.08* 0.33* 0.26* 0.51* BASOABS - - - - - - - 0.00 0.00 0.00 - = values in this interval not displayed. Recent Labs Component Name 01/16/24 1028 01/14/24 1036 01/12/24 1022 POTASSIUM 3.8 3.8 3.8 CO2 19* 21* 20* BUN 8 13 11 CREATININE 0.63 0.67 0.58 EGFR >90 >90 >90 GLUCOSE 181* 200* 194* CALCIUM 9.7 10.2 9.9 MAGNESIUM 1.8 1.9 1.8 PHOS 3.2 4.0 3.4 ALT 24 AST 11 11 11 ALKPHOS 82 83 76 Recent Labs Component Name 01/16/24 1028 01/14/24 1036 01/12/24 1022 MAGNESIUM 1.8 1.9 1.8 Recent Labs Component Name 01/16/24 1028 01/14/24 1036 01/12/24 1022 PHOS 3.2 4.0 3.4 Pathology Results RVP (12/19/23): negative Radiology Results UE/LE dopplers (01/16/24): pending CT abd/pelvis with contrast (01/16/24): 1.Central filling [...] substantially decreased from 09/28/2023. Findings could be insurance representative of small airways disease. Otherwise, no [...] and molecular remission after 7+3 -Transferred from [facility] after a BMBX showed 78% blasts on [...] IT treatment planned. - Labs reviewed. Hgb stable, plts 17. One unit PRBC given for plt <20 in setting of intermittentvaginal bleeding and history of ? retinal hemorrhages. [...] 3. Vaginal Bleeding - Medroxyprogesterone pill discontinued 2/ concern for IIH. Confirmed with [...] may not have fully presented yet. - Sent rx for flagyl 500mg TID x 5 days, disp #15 0RF. Advised pt to increase levaquin to 750mg forthe next five days. Pt is understanding of [...] foci, will refer to gynecology. PLAN: - C4D18 HiDAC consolidation - Labs reviewed; thrombocytopenic requiring 1 unit plt for plts 17 >>42 - Incidental finding of filling defect on CT abd/pelvis required further workup with dopplers; willobtain CT PE protocol 01/18 and continue to monitor closely. Pt's thrombocytopenia does preclude anticoagulation at this time. - Levaquin increased to 750mg PO QD and added flagyl 500mg TID x 5 days for pt's perianal concerns. - Oxycodone also sent as above for pt's perianal pain. - Will need to refer to gynecology for ovarian mass. - Continue OI ppx with valtrex, posaconazole. - Continue to monitor ANC for count recovery DISPOSITION: RTC 01/18 for basics, T&S, ? Transfusions, and CT PE protocol, and on 01/20 for labs, ? transfusions and on 01/22 for labs, ABEL, ? Transfusions Total time of visit: 120 minutes including medical discussion and decision making Britni Winston PA-C Blood & Marrow Transplant [facility] documented in this encounter Plan of Treatment Upcoming Encounters Date Type Department Care Team (Late st Contact Info) Description 10/27/2024 10:30 AM ORNAMENTAL IRONWORKER Appointment [facility] [address] [place] [address] Hussain Carias MD [address] [place] [phone] Britni Winston PA-C [address] [place] [address] 11/17/2024 9:00 AM ORNAMENTAL IRONWORKER Office Visit [facility] - Ophthalmology [address], [place] [phone] Song Hobson MD [address] [place] [address] [place] [phone] Scheduled Orders Name Type Priority Associated Diagnoses Orde r Schedule VAS BILATERAL VENOUS DUPLEX UE Vascular Routine Acute myeloid leukemia in remission (HCC) Anal or rectal pain For radiant use only for 1 Occurrences starting 01/16/2024 until 01/16/2024 VAS BILATERAL VENOUS DUPLEX LE Vascular Routine Acute myeloid leukemia in remission (HCC) Anal or rectal pain For radiant use only for 1 Occurrences starting 01/16/2024 until 01/16/2024 CT ANGIO CHEST PULM EMBOLISM Imaging Routine Acute myeloid leukemia in remission (HCC) Anal or rectal pain 1 Occurrences starting 01/16/2024 until 01/15/2025 VAS BILATERAL VENOUS DUPLEX UE Vascular Routine 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, unspecified laterality (HCC) 1 Occurrences starting 01/16/2024 until 01/15/2025 VAS BILATERAL VENOUS DUPLEX LE Vascular Routine 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, unspecified laterality (HCC) 1 Occurrences starting 01/16/2024 until 01/15/2025 documented as of this encounter Procedures Procedure Name Priority Date/Time Associated Diagnosis Comments PLATELET COUNT AUTO Routine 01/16/2024 1 2:51 PM CDT Acute myeloid leukemia in remission (HCC) TRANSFUSE PLATELET PHERESIS UNIT(S) Routine 01/16/2024 12:12 PM CDT PREPARE PLATELET PHERESIS UNIT(S) Routine 01/16/2024 12:01 PM CDT URIC ACID BLOOD STAT 01/16/2024 10:28 AM CDT Acute myeloid leukemia in remission (HCC) TYPE + SCREEN PANEL STAT 01/16/2024 1 0:28 AM CDT Acute myeloid leukemia in remission (HCC) CBC W AUTO DIFFERENTIAL STAT 01/16/2024 10:28 AM CDT Acute myeloid leukemia in remission (HCC) COMPREHENSIVE METABOLIC PANEL STAT 01/16/2024 10:28 AM CDT Acute myeloid leukemia in remission (HCC) PHOSPHORUS BLOOD STAT 01/16/2024 10:2 8 AM CDT Acute myeloid leukemia in remission (HCC) MAGNESIUM BLOOD STAT 01/16/2024 10:28 AM CDT Acute myeloid leukemia in remission (HCC) LDH BLOOD STAT 01/16/2024 10:28 AM CDT Acute myeloid leukemia in remission (HCC) documented in this encounter Results * VAS BILATERAL VENOUS DUPLEX UE (01/16/2024 4:40 PM CDT) Anatomical Region Laterality Modality Upper Extremity Intravascular Ul trasound 01/16/2024 4:01 PM CDT Narrative Procedure Note Sivakumar Peoples MD - 01/17/2024 Britni CHANDLER-C VASCULAR LAB ORDERAB LES * VAS BILATERAL VENOUS DUPLEX LE (01/16/2024 4:40 PM CDT) Anatomical Region Laterality Modality Lower Extremity Intravascular [...] verification. > Dictated by Jeremy Valdes MD (cco & president). > Dictated by Jeremy Valdes MD (Banking Pin Adjuster) 01/16/2024 2:09 PM I, Arlyn Gannon MD have personally reviewed and interpreted [...] verification. > Dictated by Jeremy Valdes MD (cco & president). > Dictated by Jeremy Valdes MD (Banking Pin Adjuster) 01/16/2024 2:09 PM IArlyn MD have personally reviewed and interpreted this examination/study. > Interpreting Provider: Arlyn Gannon MD on 01/16/2024 4:49 PM Britni Winston PA-C CT ORDERABLES * (ABNORMAL) PLATELET COUNT AUTO (01/16/2024 12:51 PM CDT) Platelet Count 42(L) 150 - 420 x10E9/L 01/16/2024 1:45 PM CDT [facility] Blood BLOOD SPECIMEN / Unknown Venipuncture / Unknown 01/16/2024 12:51 PM CDT 01/16/2024 12:59 PM CDT Britni Winston PA-C LAB - HEMATOLOGY ORD ERABLES [facility] [address] [place] [phone], [facility] [phone] * TRANSFUSE PLATELET PHERESIS UNIT(S) (01/16/2024 12:49 PM CDT) Britni Winston PA-C NURSING - BLOOD PROD TRANSFUSION * TRANSFUSE PLATELET PHERESIS UNIT(S), 1 Units (01/16/2024 12:49 PM CDT) Britni Winston PA-C NURSING - BLOOD PROD TRANSFUSION * PREPARE PLATELET PHERESIS UNIT(S), 1 Units (01/16/2024 12:01 PM CDT) Unit Description LRPLTpher B7 IR [facility] LAB Unit ABO A [facility] Unit Rh POS [facility] Product Number P33 [facility] B LOOD BANK LAB Unit Donor # [id number] [facility] Unit Status transfused [facility] BLO OD BANK LAB Product Code [id number] [facility] BLO OD BANK LAB Blood Type Barcode 6200 [facility] Expiration Date [id number] S BLOOD BANK LAB Blood Bank BLOOD SPECIMEN / Unknown 01/16/2024 10:41 AM CDT Britni Winston PA-C LAB - BLOOD BANK ORD ERABLES [facility] LAB [address] [place] [address], [employer] [phone] * TYPE + SCREEN PANEL (01/16/2024 10:28 AM CDT) Antibody Screen NEG 11:38 AM CDT [facility] LAB ABO Rh O POS 01/16/2024 11:38 AM CDT [facility] Blood Bank BLOOD SPECIMEN / Unknown Venipuncture / Unknown 01/16/2024 10:28 AM CDT 01/16/2024 10:41 AM CDT Britni Winston PA-C LAB - BLOOD BANK ORD ERABLES [facility] [address] [place] [address], [place] [phone] * URIC ACID BLOOD (01/16/2024 10:28 AM CDT) Uric Acid 3.7 2.6 - 6.0 mg/dL 01/16/2024 11:09 AM T [facility] Blood BLOOD SPECIMEN / Unknown Venipuncture / Unknown 01/16/2024 10:28 AM CDT 01/16/2024 10:40 AM CDT Britni Winston PA-C LAB - CHEMISTRY JON NAIDU [address] [address], [facility] [phone] * LDH BLOOD (01/16/2024 10:28 AM CDT) [facility] LDH Total 165 125 - 243 Units/L 01/16/2024 11:09 AM T [facility] Blood BLOOD SPECIMEN / Unknown Venipuncture / Unknown 01/16/2024 10:28 AM CDT 01/16/2024 10:40 AM CDT Britni Winston PA-C LAB - CHEMISTRY JON NAIDU Performing Organization Address [facility]/ZIP Co de Phone Number [address] [address], [facility] [phone] * (ABNORMAL) CBC WITH DIFFERENTIAL (01/16/2024 10:28 AM CDT) [facility] WBC 0.2(LL) 4.0 - 10.7 x10E9/L 01/16/2024 11:27 AM [facility] Comment:No Manual Differenti al performed. WBC count < 0.5 RBC Count 2.63(L) 3.90 - 5.20 x10E12/L 01/16/2024 11:27 AM [facility] Hemoglobin 7.4(L) 11.9 - 15.8 g/dL 01/16/2024 11:27 AM [facility] Hematocrit 20.4(L) 34.8 - 46.1 % 01/16/2024 11:27 AM [facility] MCV 77.6(L) 80.0 - 98.0 fL 01/16/2024 11:27 AM T [facility] MCH 28.1 26.7 - 33.6 pg 01/16/2024 11:27 AM [facility] MCHC 36.3 31.7 - 36.3 g/dL 01/16/2024 11:27 AM [facility] RDW-CV 13.6 11.3 - 14.8 % 01/16/2024 11:27 AM [facility] Platelet Count 17(LL) 150 - 420 x10E9/L 01/16/2024 11:27 AM [facility] MPV 10.0 7.8 - 11.4 fL 01/16/2024 11:27 AM [facility] Preliminary Absolute Neutrophil 01/16/2024 11:27 AM [facility] Blood BLOOD SPECIMEN / Unknown Venipuncture / Unknown 01/16/2024 10:28 AM CDT 01/16/2024 10:40 AM CDT Britni Winston PA-C LAB - HEMATOLOGY ORD ERABLES [address] [address], [facility] [phone] * MAGNESIUM BLOOD (01/16/2024 10:28 AM CDT) Magnesium 1.8 1.6 - 2.6 mg/dL 01/16/2024 11:09 AM T [facility] Blood BLOOD SPECIMEN / Unknown Venipuncture / Unknown 01/16/2024 10:28 AM CDT 01/16/2024 10:40 AM CDT Britni Winston PA-C LAB - CHEMISTRY ORDE RABLES [address] [address], [facility] [phone] * (ABNORMAL) COMPREHENSIVE METABOLIC PANEL (01/16/2024 10:28 AM CDT) BUN 8 7 - 26 mg/dL 01/16/2024 11:09 AM [facility] Creatinine 0.63 0.56 - 0.96 mg/dL 01/16/2024 11:09 AM [facility] Sodium 141 136 - 145 mmol/L 01/16/2024 11:09 AM [facility] Potassium 3.8 3.5 - 4.5 mmol/L 01/16/2024 11:09 AM [facility] Chloride 111(H) 98 - 107 mmol/L 01/16/2024 11:09 AM [facility] CO2 19(L) 22 - 29 mmol/L 01/16/2024 11:09 AM [facility] Glucose 181(H) 70 - 115 mg/dL 01/16/2024 11:09 AM [facility] Calcium 9.7 8.4 - 10.2 mg/dL 01/16/2024 11:09 AM [facility] Protein Total 6.8 6.0 - 8.3 g/dL 01/16/2024 11:09 AM [facility] Albumin 3.5 3.4 - 5.0 g/dL 01/16/2024 11:09 AM [facility] Bilirubin Total 0.5 0.2 - 1.2 mg/dL 01/16/2024 11:09 AM [facility] Alkaline Phosphatase 82 40 - 150 U/L 01/16/2024 11:09 AM [facility] ALT 21 5 - 55 U/L 01/16/2024 11:09 AM [facility] AST 11 5 - 34 U/L 01/16/2024 11:09 AM [facility] Anion Gap 11 6 - 16 01/16/2024 11:09 AM [facility] BUN/Creatinine Ratio 13 7 - 23 01/16/2024 11:09 AM [facility] Osmolality Calculated 295 275 - 295 mOsm/kg 01/16/2024 11:09 AM [facility] Albumin/Globulin Ratio 1.1 1.1 - 2.3 01/16/2024 11:09 AM [facility] eGFR by CKD-EPI >90 >=90 mL/min/1.7 3 m2 01/16/2024 11:09 AM CDT [facility] Blood BLOOD SPECIMEN / Unknown Venipuncture / Unknown 01/16/2024 10:28 AM CDT 01/16/2024 10:40 AM CDT Britni Winston PA-C LAB - CHEMISTRY ORDAzul NAIDU [address] [address], [facility] [phone] * PHOSPHORUS BLOOD (01/16/2024 10:28 AM CDT) [facility] Signature Phosphorus 3.2 2.9 - 5.1 mg/dL 01/16/2024 11:09 AM CDT [facility] Blood BLOOD SPECIMEN / Unknown Venipuncture / Unknown 01/16/2024 10:28 AM CDT 01/16/2024 10:40 AM CDT Britni Winston PA-C LAB - CHEMISTRY JON NAIDU [address] [address], [place] [phone] documented in this encounter Visit Diagnoses Diagnosis Anal or rectal pain- Primary 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, 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 documented in this encounter Administered Medications Inactive Administered Medications - up to 3 most recent administrations Medication Order MAR Action Action Date Dose Rate Site oxyCODONE (immediate release) (Roxicodone) tablet 5 mg 5 mg, Oral, Once, 1 dose, On Fri01/16/24 at 1045, Patient preference for lesser PRN pain meds [...] patient cannot tolerate oral intake $ Given 01/16/2024 10:53 AM CDT 5 mg documented in this encounter Care Teams Party Host Relationship Specialty Start Date End Date Nilam Mayers MD [address] [place] [phone] PCP - General Family Medicine 09/04/23 04/18/24 documented as of this encounter
--- OUTSIDE RECORDS SUMMARY | 2024-08-31 21:27 | XMS_ITS | Encounter Summary ---
Author Organization [facility] Address [address] [place], [place] [address] [address] Care Team Providers Care Pelt Inspector Name Role Phone Nilam Mayers MD Primary Care Provider +1- [phone] Reason for Visit * Radiology Services (Routine) - Closed Specialty Diagnoses / Procedures Referred By Contac t Referred To Contact Hematology-Oncology Diagnoses Acute myeloid leukemia in remission (HCC) Procedures VAS BILATERAL VENOUS DUPLEX Britni Murillo, NOELLE [address] [place] [address] Referral ID Status Reason Start Date Expiration Date Visits Re quested Visits Authorized [id number] Closed 01/16/2024 01/15/2025 1 1 Encounter Details Date Type Department Care Team (Latest Contact Info) Description 01/16/2024 3:00 PM CDT - 01/16/2024 3:04 PM CDT Hospital Encounter [facility] VASCULAR [address] [place] [phone] Britni Winston, PAChristianne [address] [place], [place] [id number] Discharge Disposition: Home or Self Care Social [...] and heating? Not hard at all 12/30/2023 [facility] of Occupat ional Health - Occupational [...] st Contact Info) Description 10/27/2024 10:30 AM EDI DEVELOPER Appointment [facility] [address] [place] [address] Hussain Carias MD [address] [place] [phone] Britni Winston PA-C [address] [place], [place] [id number] 11/17/2024 9:00 AM EDI DEVELOPER Office Visit [facility] - Ophthalmology [address] [place] [phone] Song Hobson MD [address] [place] [address] DE[place] [phone] documented as of this encounter Procedures Procedure Name Priority Date/Time Associated Diagnosis Comments VAS BILATERAL VENOUS DUPLEX LE Routine 01/16/2024 4:40 PM CDT Acute myeloid leukemia in remission (HCC) documented in this encounter Results * VAS BILATERAL VENOUS DUPLEX LE (01/16/2024 4:40 PM CDT) Anatomical Region Laterality Modality Lower Extremity Intravascular Ul trasound 01/16/2024 3:49 PM CDT Narrative Procedure Note Sivakumar Peoples MD - 01/17/2024 Britni Winston PA-C VASCULAR LAB ORDERAB LES documented in this encounter Visit Diagnoses Diagnosis 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 documented in this encounter Care Teams Pelt Inspector Relationship Specialty Start Date End Date Nilam aMyers MD [address] [place] [phone] PCP - General Family Medicine 09/04/23 04/18/24 documented as of this encounter
--- OUTSIDE RECORDS SUMMARY | 2024-08-31 21:27 | XMS_ITS | Encounter Summary ---
Author Organization [facility] Address [address] [place] [address] [place] [address] Care Team Providers Care Electrical Logging Engineer Name Role Phone Nilam Mayers MD Primary Care Provider +1- [phone] Encounter Details Date Type Department Care Team (Latest Contact Info) Description 01/16/2024 Travel Social History Tobacco Use Types Packs/Day [...] and heating? Not hard at all 12/30/2023 [facility] [place] of Occupat ional Health - Occupational Stress [...] st Contact Info) Description 10/27/2024 10:30 AM DOOR MANAGER Appointment [facility] [address] [place] [address] Hussain Carias MD [address] [place] [address] Britni Winston, PABaronC [address] [place] [address] 11/17/2024 9:00 AM DOOR MANAGER Office Visit [facility] - Ophthalmology [address] [place] [phone] Song Hobson MD [address] [place] [address] [place] [phone] documented as of this encounter Visit Diagnoses Not on filedocumented in this encounter Care Teams Electrical Logging Engineer Relationship Specialty Start Date End Date Nilam Mayers MD [address] [place] [phone] PCP - General Family Medicine 09/04/23 04/18/24 documented as of this encounter
--- OUTSIDE RECORDS SUMMARY | 2024-08-31 21:27 | XMS_ITS | Encounter Summary ---
Author Organization [facility] Address [address] [place] [address] [place] [address] Care Team Providers Care Drywall Professional Name Role Phone Nilam Mayers MD Primary Care Provider +1- [phone] Encounter Details Date Type Department Care Team (Latest Contact Info) Description 01/09/2024 Travel Social History Tobacco Use Types Packs/Day [...] and heating? Not hard at all 12/30/2023 [facility] [place] of Occupat ional Health - Occupational Stress [...] st Contact Info) Description 10/27/2024 10:30 AM ASSIGNER Appointment [facility] [address] [place] [address] Hussain Carias MD [address] [place] [address] Britni Winston, PABaronC [address] [place] [address] 11/17/2024 9:00 AM ASSIGNER Office Visit [facility] - Ophthalmology [address] [place] [phone] Song Hobson MD [address] [place] [address] [place] [phone] documented as of this encounter Visit Diagnoses Not on filedocumented in this encounter Care Teams Drywall Professional Relationship Specialty Start Date End Date Nilam Mayers MD [address] [place] [phone] PCP - General Family Medicine 09/04/23 04/18/24 documented as of this encounter
--- OUTSIDE RECORDS SUMMARY | 2024-08-31 21:27 | XMS_ITS | Encounter Summary ---
Author Organization [facility] Address [address] [place] [address] [place] [address] Care Team Providers Care Elevator Erector Name Role Phone Nilam Mayers MD Primary Care Provider +1- [phone] Encounter Details Date Type Department Care Team (Latest Contact Info) Description 01/19/2024 Travel Social History Tobacco Use Types Packs/Day [...] and heating? Not hard at all 01/19/2024 [facility] [place] of Occupat ional Health - Occupational Stress [...] st Contact Info) Description 10/27/2024 10:30 [address] [facility] B[facility] CL[facility] [address] [place] [address] Hussain Carias MD [address] [place] [address] Britni Winston, PABaronC [address] [place] [address] 11/17/2024 9:00 AM YARD PERSON Office Visit [facility] - Ophthalmology [address] [place] [phone] Song Hobson MD [address] [place] [address] DEPT [place] [phone] documented as of this encounter Visit Diagnoses Not on filedocumented in this encounter Care Teams Elevator Erector Relationship Specialty Start Date End Date Nilam Mayers MD [address] [place] [phone] PCP - General Family Medicine 09/04/23 04/18/24 documented as of this encounter
--- OUTSIDE RECORDS SUMMARY | 2024-08-31 21:27 | XMS_ITS | Encounter Summary ---
Author Organization [facility] Address [address] [place], [place] [address] [address] Care Team Providers Care Batch Tester Name Role Phone Nilam Mayers MD Primary Care Provider +1- [phone] Encounter Details Date Type Department Care Team (Late st Contact Info) Description 01/17/2024 Orders Only [facility] - Hematology/Oncology [address] [place] [address] Remington Stafford MD [address] [facility] [place], [place] [phone] Rectal fissure Social History Tobacco Use Types [...] and heating? Not hard at all 01/19/2024 [facility] of Occupat ional Health - Occupational Stress [...] st Contact Info) Description 10/27/2024 10:30 AM RESIDENT HALL DIRECTOR Appointment [facility] [address] [place] [address] Hussain Carias MD [address] [place] [phone] Britni Winston, PA-C [address] [place], [place] [phone] 11/17/2024 9:00 AM RESIDENT HALL DIRECTOR Office Visit [facility] - Ophthalmology [address] [place] [address], [place] [phone] Song Hobson MD [facility]5 [facility] [place] [address] documented as of this encounter Visit Diagnoses Diagnosis Rectal fissure- Primary Anal fissure documented in this encounter Care Teams Batch Tester Relationship Specialty Start Date End Date Nilam Mayers MD [address] [place] [phone] PCP - General Family Medicine 09/04/23 04/18/24 documented as of this encounter
--- OUTSIDE RECORDS SUMMARY | 2024-08-31 21:28 | XMS_ITS | Encounter Summary ---
Author Organization [facility] Address [address] [place], [place] [address] [address] Care Team Providers Care Administrative Job Titles Name Role Phone Nilam Mayers MD Primary Care Provider +1- [phone] Encounter Details Date Type Department Care Team (Late st Contact Info) Description 12/07/2023 Telephone [facility] B[facility] CL[facility]IC [address] [place] [address] Britni Winston, PA-C [address] [place] [address] Social History Tobacco Use Types Packs/Day Years Used Date Smoking Tobacco: Former Cigarettes 1 2 - 2010 Smokeless Tobacco: Never Alcohol Use Standard Drinks/Week Comments Yes 0 (1 standard drink = 0.6 oz pur e alcohol) occasional AUDIT-C Answer Date Recorded Q1: How often do you have a drink containing alcohol? Never 12/01/2023 Q2: How many drinks containi ng alcohol do you have on a typical day when you are drinking? Patient does not drink Q3: How often do you have si x or more drinks on one occasion? Never 12/01/2023 Overall Financial Resource Strain (CARDIA) Answe r Date Recorded How hard is it for you to pa y for the very basics like food, housing, medical care, and heating? Patient declined 12/01/2023 [facility] of Occupat ional Health - Occupational Stress Questionnaire Answer Date Recorded Do you feel stress - tense, restless, nervous, or anxious, or unable to sleep at night because your mind is troubled all the time - these days? Patient declined 12/01/2023 Hunger Vital Sign Answer Date Recorded Within the past 12 months, y ou worried that your food would run out before you got the money to buy more. Patient declined Within the past 12 months, t he food you bought just didn't last and you didn't have money to get more. Patient declined PRAPARE - Transportation Answer Date Re corded In the past 12 months, has l ack of transportation kept you from medical appointments or from getting medications? Patient declined 12/01/2023 In the past 12 months, has l ack of transportation kept you from meetings, work, or from getting things needed for daily living? Patient declined 12/01/2023 Housing Stability Vital Sign Answer Richi e Recorded In the last 12 months, was t here a time when you were not able to pay the mortgage or rent on time? Patient declined 12/01/19 24 In the last 12 months, how many places have you lived? 1 12/01/2023 In the last 12 months, was t here a time when you did not have a steady place to sleep or slept in a fci (including now)? Patient declined 12/01/2023 Sex and Gender Information Value Date Recorded Sex Assigned at Not on file Gender Identity Female 02/13/2024 1:12 PM CDT Sexual Orientation Not on file documented as of this encounter Functional Status Functional Status Response Date of Assess ment Is person deaf or have serious hearing difficult y? No 12/01/2023 Is person blind or have serious difficulty seein g? No 12/01/2023 Does person have serious dif ficulty walking/climbing stairs? No 12/01/2023 Does person have difficulty dressing/bathing? No 12/01/2023 Does person have difficulty doing errands alone? No 12/01/2023 Cognitive Status Response Date of Assessm ent Does person have difficulty concentrating/remembering/making decisions? No 12/01/2023 documented as of this encounter Plan of Treatment Upcoming Encounters Date Type Department Care Team (Late st Contact Info) Description 10/27/2024 10:30 AM ARMHOLE PRESSER Appointment [facility] B[facility] CLINIC [address] [place] [address] Hussain Carias MD [address] [place] [address] Britni Winston, PA-C [address] [place], [place] [phone] 11/17/2024 9:00 AM ARMHOLE PRESSER Office Visit [facility] - Ophthalmology [address] [place] [address], [place] [phone] Song Hobson MD [address] [place] [address] [place] [phone] documented as of this encounter Visit Diagnoses Not on filedocumented in this encounter Care Teams Administrative Job Titles Relationship Specialty Start Date End Date Nilam Mayers MD [address] [place] [phone] PCP - General Family Medicine 09/04/23 04/18/24 documented as of this encounter
--- OUTSIDE RECORDS SUMMARY | 2024-08-31 21:28 | XMS_ITS | Encounter Summary ---
Author Organization [facility] Address [address] [place] [address] [place] [address] Care Team Providers Care Oral And Maxillofacial Surgery Resident Name Role Phone Nilam Mayers MD Primary Care Provider +1- [phone] Encounter Details Date Type Department Care Team (Latest Contact Info) Description 12/10/2023 Travel Social History Tobacco Use Types Packs/Day [...] medical care, and heating? Patient declined 12/01/2023 [facility] [place] of Occupat ional Health - Occupational Stress [...] or slept in a chcf (including now)? Patient declined 12/01/2023 Sex and [...] st Contact Info) Description 10/27/2024 10:30 AM CELL POURER Appointment [facility] [address] [place] [address] Hussain Carias MD [address] [place] [address] Britni Winston, PABaronC [address] [place] [address] 11/17/2024 9:00 AM CELL POURER Office Visit [facility] - Ophthalmology [address] [place] [phone] Song Hobson MD [address] [place] [address] [place] [phone] documented as of this encounter Visit Diagnoses Not on filedocumented in this encounter Care Teams Oral And Maxillofacial Surgery Resident Relationship Specialty Start Date End Date Nilam Mayers MD [address] [place] [phone] PCP - General Family Medicine 09/04/23 04/18/24 documented as of this encounter
--- OUTSIDE RECORDS SUMMARY | 2024-08-31 21:28 | XMS_ITS | Encounter Summary ---
Author Organization [facility] Address [address] [place], [place] [address] [address] Care Team Providers Care Electronic Console Display Operator Name Role Phone Nilam Mayers MD Primary Care Provider [phone] Encounter Details Date Type Department Care Team (Latest Contact Info) Description 12/19/2023 7:11 AM CDT - 12/19/2023 10:31 AM CDT Hospital Encounter [facility] [address] [place] [address] Hussain Carias MD [address] [place] [address] Britni Winston, PABaronC [address] [place] [address] Discharge Disposition: Home or Self [...] medical care, and heating? Patient declined 12/01/2023 [facility] - Occupational Stress [...] or slept in a m[facility]p (including now)? Patient declined 12/01/2023 Sex and Gender Information Value Date Recorded Sex Assigned at Not on file Gender Identity Female 02/13/2024 1:12 PM CDT Sexual Orientation Not on file documented as of this encounter Last Filed Vital Signs Vital Sign Reading Time Taken Comments Blood Pressure 113/73 12/19/2023 10:18 AM CDT Pulse 115 12/19/2023 10:18 AM CDT Temperature 37.1 ??C (98.8 ??F) 12/19/2023 1 0:18 AM CDT Respiratory Rate 20 12/19/2023 10:1 8 AM CDT Oxygen Saturation 100% 12/19/2023 10: 18 AM CDT Inhaled Oxygen Concentration - - Weight 108.8 kg (239 lb 14.4 oz) 12/19/2023 8:46 AM CDT Height - - Body Mass Index 43.87 12/03/2023 11:44 AM CDT documented in this encounter Functional [...] No 12/01/2023 documented as of this encounter Medications at [...] 8 hours as needed for Nausea/Vomiting 04/30/2024 sulfamethoxazole-tri methoprim (Bactrim DS; Septra DS) 800-160 MG tablet Take 2 (two) tablets by mouth every 12 hours for 5 days 20 tablet 12/17/2023 12/22/2023 valACYclovir (Valtrex) 500 MG tabletIndications: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) Take 1 (one) tablet by mouth 2 times daily 60 tablet 11 11/03/2023 08/23/2024 documented as of this encounter Progress Notes * Britni Winston PA-C - 12/19/2023 10:00 AM CDT Images from the original note were not included. HEMATOLOGY/ONCOLOGY INPATIENT PROGRESS NOTE Name: Sarah Mckeon Age: [age] year old Date of : 1985 Date of Service: 12/19/2023 Reason for Consult: AML HEMATOLOGY & ONCOLOGY [...] in August of 2023 was admitted to [facility] c/o flu like symptoms and ultimately had marrow biopsy revealing 78% blasts on marrow and flow cytometry confirmed NPM1 mutation. Was sent to [facility] for AML. Completed 7 + [...] She was discharged on 12/06/23. Interval History: C1D19 HiDAC Pt reports feeling very fatigued today. She has a productive cough and some rhinorrhea, but denies shortness of breath and chest pain. Reports anal pain is improved. It is not gone completely, but is improved. Reports her pimple to left axillary area is also significantly improved. She denies pain to the area. Denies fevers, chills, nausea, vomiting, diarrhea, or constipation. VSS ANC 30. Review of Systems: Review of Systems Unable to perform ROS: Other Constitutional: Negative for chills, fever, malaise/fatigue and weight loss. HENT: Positive for congestion. Negative for nosebleeds and sore throat. Eyes: Negative for blurred vision and double vision. Respiratory: Positive for cough and sputum production. Negative for shortness of breath. Cardiovascular: Negative for chest [...] unspecified 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 ([facility]) 09/06/2023 - Chemotherapy cytarabine (Cytosar) [...] mg/m2 = 6,700 mg, Intravenous,EVERY 12 HOURS, 1 of 2 cycles Administration: 6,700 mg (10/04/2023), 6,700 mg (10/04/2023), 6,700 mg (10/06/2023) C1 7+3 Induction 09/06/23 C1 HiDAC 10/04/23 10/01/2023 Remission Molecular remission CR1, negative MRD by flow and NPM1 negative by PCR in the bone marrow 10/03/2023 Adverse Reaction Leukemic infiltrate vs IIH as a cause of increased ICP will treat empirically with stable to improving disc edema on exam-- to prevent vision loss. Active Treatment Days for Sarah Mckeon (until 12/20/2023) 12/03/2023 ONCOLOGY TREATMENT: IP AML CONSOLIDATION - AGE <60 (HIGH DOSE CYTARABINE)(SANDHU HIDAC) Day 5, Cycle 3 (Started) Pre-Medications: ondansetron (Zofran) injection 8 mg, [...] Nausea and Vomiting caused by Cancer Chemotherapy ??? posaconazole (Noxafil) 100 MG tablet Take 3 (three) tablets by mouth daily with dinner ??? potassium chloride ER 10 MEQ tablet Take 2 (two) tablets by mouth once daily ??? prochlorperazine (Compazine) 10 MG tablet Take 1 (one) tablet by mouth every 8 hours as needed for Nausea/Vomiting ??? sulfamethoxazole-trimethoprim (Bactrim DS; Septra DS) 800-160 MG tablet Take 2 (two) tablets bymouth every 12 hours for 5 days ??? valACYclovir (Valtrex) 500 MG tablet Take 1 (one) tablet by mouth 2 times daily No current facility-administered medications for this encounter. Allergies No Known Allergies OBJECTIVE Physical Exam Vitals: 12/19/23 0846 12/19/23 0957 BP: 132/78 110/74 Pulse: (!) 116 (!) 116 Resp: 20 Temp: 98.5 ??F 98.9 ??F SpO2: 100% 100% Weight: 108.8 kg (239 lb 14.4 oz) Wt Readings from Last 3 Encounters: 12/19/23 108.8 kg (239 lb 14.4 oz) 12/17/23 109.5 kg (241 lb 6.4 oz) 12/15/23 108.5 kg (239 lb 4.8 oz) Karnofsky/ECO/0 General appearance - [...] no pedal edema, no clubbing or cyanosis Area to inferior medial left axillary region appears to be resolving Skin - normal coloration and turgor, no rashes noted CVC - dressing dry and intact without redness, swelling, or stated tenderness Laboratory Results Recent Labs Component Name 12/19/23 0851 12/17/23 0837 12/15/23 1207 12/15/23 0939 12/08/23 1205 12/08/23 1011 12/06/23 0847 12/05/23202112/04/23 1946 12/03/23 2040 WBC 0.5* 0.2* - 0.2* - 1.3* - 2.1* 3.3* 3.3* RBC 2.37* 2.63* - 2.18* - 3.05* - 2.37* 2.44* 2.44* HGB 6.8* 7.7* - 6.2* - 8.8* - 6.8* 7.2* 7.1* HCT 18.8* 20.9* - 17.3* - 24.0* - 19.0* 19.9* 20.3* MCV 79.3* 79.5* - 79.4* - 78.7* - 80.2 81.6 83.2 MCHC 36.2 36.8* - 35.8 - 36.7* - 35.8 36.2 35.0 PLTCOUNT 12* 37* 49* 15* - 9* - 33* 48* 54* NEUTPCT - - - - - - - 92.7* 89.0* 87.8* LYMPHPCT - - - - - - - 5.8* 6.7* 5.8* NEUTABS 0.03* - - - - 0.98* 1.03* - 1.91 2.93 2.85 LYMPHABS - - - - - 0.27* - 0.12* 0.22* 0.19* BASOABS - - - - - - - 0.00 0.00 0.01 - = values in this interval not displayed. Recent Labs Component Name 12/19/23 0851 12/17/23 0837 12/15/23 0939 POTASSIUM 4.0 3.8 3.8 CO2 21* 18* 20* BUN 9 9 10 CREATININE 0.68 0.62 0.63 EGFR >90 >90 >90 GLUCOSE 127* 162* 151* CALCIUM 9.8 9.9 9.6 MAGNESIUM 1.9 2.0 1.9 PHOS 3.2 3.4 3.3 ALT 17 22 23 AST 10 12 12 ALKPHOS 77 91 79 Recent Labs Component Name 12/19/23 0851 12/17/23 0837 12/15/23 0939 MAGNESIUM 1.9 2.0 1.9 Recent Labs Component Name 12/19/23 0851 12/17/23 0837 12/15/23 0939 PHOS 3.2 3.4 3.3 Pathology Results RVP (12/19/23): pending Radiology Results CXR (12/19/23): Right IJ approach tunneled central venous catheter that terminates at the superior cavoatrial junction. ?? Minimal interstitial prominence in the lung bases, substantially decreased from 09/28/2023. Findings could be field representatives director of small airways disease. Otherwise, no confluent consolidation, pleural effusion, or pneumothorax. Heart size is normal. Superior mediastinal contours are within normal limits. No acute osseous abnormality. US left upper extremity (nonvascular) (12/17/23): final read pending, prelim read negative for areas of loculation ASSESSMENT Sarah Mckeon is a 38 year old female with favorable risk AML, NPM-1 mutation, presenting for C3 ofHiDAC therapy, today is D6C3. 1. 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 - Labs reviewed. Hgb/plts stable s/p 3rd cycle HiDAC. Continue to monitor for ANC recovery. General transfusion parameters [...] of now. Next f/u 12/[address] Hboson. - Acetazolamide discontinued due to significant metabolic acidosis, even on half dose. - Continue dexamethasone eye drops during HiDAC cycles. - Artificial tears QID while inpatient. 3. Vaginal Bleeding - Medroxyprogesterone pill discontinued 10/17 concern for IIH. Confirmed with patient that she is nottaking it. - CTM - Next medroxyprogesterone injection due week of 01/05/24. 4. Hx of elevated ICP - Symptom [...] know if sx do not continue toresolve. 6. Left axillary abscess - Began 12/14, worsened 12/16. - Obtained left axillary US 12/16 to look for area of loculation to determine if drainage is necessary. Prelim read did not find area of loculation. - Sent Bactrim DS 2 tabs BID x 5 days, 0 RF (12/19-12/23). - Appears to be resolving per exam 12/18. 7. URI - CXR (12/18) negative for acute pulmonary process - RVP pending. - Follow sx, pt instructed to call if her sx worsen or if she develops any fevers. PLAN: - C3D17 HiDAC consolidation - Continue on Bactrim for abscess tx. - CXR shows no acute pulmonary process. - RVP pending - Continue OI ppx with valtrex, posaconazole, and levaquin while neutropenic. DISPOSITION: RTC 12/21 for labs, ? transfusions and on 12/25 for labs, ABEL, ? Transfusions, and on 12/29/23 for C4 HiDAC start, labs, and ABEL. Total time of visit: 30 minutes including medical discussion and decision making Britni Winston PA-C [facility] documented in this encounter Plan of Treatment Upcoming Encounters Date Type Department Care Team (Late st Contact Info) Description 10/27/2024 10:30 AM [employer] Appointment [facility] [address] [place] [address] Hussain Carias MD [address] [place] [phone] Britni Winston PA-C [address] [place] [address] 11/17/2024 9:00 AM [employer] Office Visit [facility] - Ophthalmology [address] [place] [phone] Song Hobson MD [address] [facility] [place] [address] documented as of this encounter Procedures Procedure Name Priority Date/Time Associated Diagnosis Comments TRANSFUSE RED BLOOD CELL LEUKOREDUCED UNIT(S) Routine 12/19/2023 11:00 AM CDT PREPARE RBC LEUKOREDUCED UNIT Routine 12/19/2023 10:50 AM CDT PLATELET COUNT AUTO Routine 12/19/2023 1 0:49 AM CDT Acute myeloid leukemia in remission (HCC) XR CHEST 1VW PORTABLE STAT 12/19/2023 10:49 AM CDT Wheezing TRANSFUSE PLATELET PHERESIS UNIT(S) Routine 12/19/2023 9:57 AM CDT PREPARE PLATELET PHERESIS UNIT(S) Routine 12/19/2023 9:49 AM CDT RESPIRATORY PANEL WITH SARS-COV-2 BY PCR (STL) Routine 12/19/2023 9:18 AM CDT Acute myeloid leukemia in remission (HCC) URIC ACID BLOOD STAT 12/19/2023 8:51 AM CDT Acute myeloid leukemia in remission (HCC) PATHOLOGY PERIPHERAL SMEAR REVIEW STAT 12/19/2023 8:51 AM CDT Acute myeloid leukemia in remission (HCC) TYPE + SCREEN PANEL STAT 12/19/2023 8 :51 AM CDT Acute myeloid leukemia in remission (HCC) DIFFERENTIAL MANUAL STAT 12/19/2023 8 :51 AM CDT Acute myeloid leukemia in remission (HCC) CBC W AUTO DIFFERENTIAL STAT 12/19/2023 8:51 AM CDT Acute myeloid leukemia in remission (HCC) COMPREHENSIVE METABOLIC PANEL STAT 12/19/2023 8:51 AM CDT Acute myeloid leukemia in remission (HCC) PHOSPHORUS BLOOD STAT 12/19/2023 8:51 AM CDT Acute myeloid leukemia in remission (HCC) MAGNESIUM BLOOD STAT 12/19/2023 8:51 AM CDT Acute myeloid leukemia in remission (HCC) LDH BLOOD STAT 12/19/2023 8:51 AM CDT Acute myeloid leukemia in remission (HCC) documented in this encounter Results * TRANSFUSE RED BLOOD CELL LEUKOREDUCED UNIT(S) (12/19/2023 12:44 PM CDT) Britni Winston PA-C NURSING - BLOOD PROD TRANSFUSION * TRANSFUSE RED BLOOD CELL LEUKOREDUCED UNIT(S), 1 Units (12/19/2023 12:44 PM CDT) Britni Winston PA-C NURSING - BLOOD PROD TRANSFUSION * TRANSFUSE PLATELET PHERESIS UNIT(S) (12/19/2023 10:54 AM CDT) Britni Winston PA-C NURSING - BLOOD PROD TRANSFUSION * TRANSFUSE PLATELET PHERESIS UNIT(S), 1 Units (12/19/2023 10:54 AM CDT) Britni Winston PA-C NURSING - BLOOD PROD TRANSFUSION * PREPARE (CROSSMATCH) RBC UNIT(S), 1 Units (12/19/2023 10:50 AM CDT) Unit Description AS1 LR PRBC IRR [facility] Unit ABO O [facility] Unit Rh POS [facility] Product Number R04 [facility] LO[facility] Unit Donor # [id number] [facility] Unit Status transfused [facility] OD [facility] Product Code [id number] [facility] Blood Type Barcode 5100 [facility] Expiration Date [id number] S BLOOD BANK LAB Blood Bank BLOOD SPECIMEN / Unknown 12/19/2023 9:14 AM CDT Britni Winston PA-C LAB - BLOOD BANK ORD ERABLES Performing Organization Address City/[facility]/ZIP Co de Phone Number [facility] [address] [place] [address], [facility] [phone] * (ABNORMAL) PLATELET COUNT AUTO (12/19/2023 10:49 AM CDT) Platelet Count 33(L) 150 - 420 x10E9/L 12/19/2023 11:16 AM CDT [facility] Blood BLOOD SPECIMEN / Unknown Venipuncture / Unknown 12/19/2023 10:49 AM CDT 12/19/2023 10:57 AM CDT Britni Winston PA-C LAB - HEMATOLOGY ORD ERABLES [facility] [address] [place] [address], [place] [phone] * XR CHEST 1VW PORTABLE (12/19/2023 10:49 AM CDT) Anatomical Region Laterality Modality Chest Radiographic Ammy ging 12/19/2023 10:4 8 AM CDT Narrative 12/19/2023 11:18 AM CDT PROCEDURE: ??XR CHEST 1VW PORTABLE, DATE/TIME OF EXAM: ??12/19/2023 10:32 AM, LOCATION ??[facility] INDICATION: R06.2: Wheezing ADDITIONAL CLINICAL INFORMATION: Ordering Provider Reason For Exam: ??wheezing COMPARISON: Chest x-ray 09/28/2023 FINDINGS/IMPRESSION: Right IJ approach tunneled central venous catheter that terminates at the superior cavoatrial junction. Minimal interstitial prominence in the lung bases, substantially decreased from 09/28/2023. Findings could be field representatives director of small airways disease. Otherwise, no confluent consolidation, pleural effusion, or pneumothorax. Heart size is normal. Superior mediastinal contours are within normal limits. No acute osseous abnormality. > Dictated by Agustín Upton DO (Manager Mechanical) Jimmie Bartholomew MD have personally reviewed and interpreted this examination/study. > Interpreting Provider: Jimmie Sierra MD on 12/19/2023 11:18 AM Procedure Note Jimmie Sierra MD - 12/19/2023 PROCEDURE: XR CHEST 1VW PORTABLE, DATE/TIME OF EXAM: 12/19/2023 10:32AM, LOCATION [facility] INDICATION: R06.2: Wheezing ADDITIONAL CLINICAL INFORMATION: Ordering Provider Reason For Exam: wheezing COMPARISON: Chest x-ray 09/28/2023 FINDINGS/IMPRESSION: Right IJ approach tunneled central venous catheter that terminates atthe superior cavoatrial junction. Minimal interstitial prominence in the lung bases, substantiallydecreased from 09/28/2023. Findings could be field representatives director of small airwaysdisease. Otherwise, no confluent consolidation, pleural effusion, orpneumothorax. Heart size is normal. Superior mediastinal contours are within normal limits. No acute osseous abnormality. > Dictated by Agustín Upton DO (Manager Mechanical) Jimmie Bartholomew MD have personally reviewed and interpreted this examination/study. > Interpreting Provider: Jimmie Sierra MD on 12/19/2023 11:18 AM Cori Hill APRN-AEROSPACE PROJECT MANAGER DIAGNOSTIC IMAGING ORDERABLES * PREPARE PLATELET PHERESIS UNIT(S), 1 Units (12/19/2023 9:49 AM CDT) Unit Description LR PLT Phere PRT [facility] Unit ABO O [facility] Unit Rh POS [facility] Product Number [id number] [facility] B LOOD B[facility] LAB Unit Donor # [id number] [facility] Unit Status transfused [facility] OD [facility] Product Code [id number] [facility] OD [facility] Blood Type Barcode 5100 [facility] Expiration Date [id number] [facility] Blood Bank BLOOD SPECIMEN / Unknown 12/19/2023 9:14 AM CDT Britni Winston PA-C LAB - BLOOD BANK ORD ERABLES [facility] [address] [place] [address], [facility] [phone] * RESPIRATORY PANEL WITH SARS-COV-2 BY PCR ([facility]) (12/19/2023 9:18 AM CDT) Adenovirus PCR Not detected Not detected 12/19/2023 3:31 PM CDT [facility] Coronavirus 229E PCR Not detected [...] detected Not detected 12/19/2023 3:31 PM CDT [facility] Parainfluenza Virus 3 PCR Not detected Not detected 12/19/2023 3:31 PM CDT [facility] Parainfluenza Virus 4 PCR Not detected Not detected 12/19/2023 3:31 PM CDT [facility] Respiratory Syncytial Virus PCR Not detected Not detected 12/19/2023 3:31 PM CDT [facility] Bordetella parapertussis PCR Not detected Not detected 12/19/2023 3:31 PM CDT [facility] Bordetella pertussis PCR Not detected Not detected 12/19/2023 3:31 PM CDT [facility] Chlamydia pneumoniae PCR Not detected Not detected 12/19/2023 3:31 PM CDT [facility] Mycoplasma pneumoniae PCR Not detected Not detected 12/19/2023 3:31 PM CDT [facility] Microbiology SPECIMEN FROM NASOPHARYNGEAL STRUCTURE / Unknown Collection / Unknown 12/19/2023 9:18 AM CDT 12/19/2023 9:27 AM CDT Narrative [facility] - 12/19/2023 3:31 PM CDT This nucleic amplification assay has received FDA authorization via the [employer]. Britni Winston PA-C LAB - MICROBIOLOGY O RDERABLES [facility] [address] [place], [place] [address], [facility] [phone] * PATHOLOGY PERIPHERAL SMEAR REVIEW (12/19/2023 8:51 AM CDT) Path Review Confirmed 12/19/2023 11:41 AM CDT [facility] Blood BLOOD SPECIMEN / Unknown Venipuncture / Unknown 12/19/2023 8:51 AM CDT 12/19/2023 9:06 AM CDT Narrative [facility] - 12/19/2023 11:41 AM CDT Clinical history: This 38 year-old female patient with AML, currently undergoing chemotherapy, presents today for a hematology/oncology clinic visit. Pertinent findings, peripheral blood smear: -Pancytopenia -Marked leukopenia due to absolute neutropenia and lymphocytopenia -No blasts -Microcytic normochromic anemia -Marked thrombocytopenia Comments: These findings are consistent with a patient undergoing chemotherapy. Correlation with clinical findings is advised. Maria C Downing MD Attending Physician Transfusion Medicine and Clinical Pathology Britni Winston PA-C LAB - PATHOLOGY/CYTO LOGY ORDERABLES [facility] [address] [place] [address], [facility] [phone] * (ABNORMAL) DIFFERENTIAL MANUAL (12/19/2023 8:51 AM CDT) Neutrophil % 5(L) 41 - 74 % 12/19/2023 11:40 AM [facility] Lymphocyte % 44 17 - 47 % 12/19/2023 11:40 AM [facility] Comment:Reactive Lymphocytes present Monocyte % 49(H) 3 - 11 % 12/19/2023 11:40 AM [facility] Other Cells % 2(H) 0% % 12/19/2023 11:40 AM [facility] Comment:Monocytes with somew hat immature appearance - likely related to chemotherapy (NOT blast-like and NOT concerning for monoblasts or promonocytes). Neutrophil Absolute 0.03(L) 1.60 - 7.50 x10E9/L 12/19/2023 11:40 AM [facility] Lymphocyte Absolute 0.22(L) 1.00 - 4.40 x10E9/L 12/19/2023 11:40 AM [facility] Monocyte Absolute 0.25 0.15 - 1.00 x10E9/L 12/19/2023 11:40 AM [facility] RBC Morphology REVIEWED 12/19/2023 11:40 AM [facility] Microcytosis MANY(A) (none) 12/19/2023 11:40 AM [facility] Schistocytes FEW(A) (none) 12/19/2023 11:40 AM [facility] Blood BLOOD SPECIMEN / Unknown Venipuncture / Unknown 12/19/2023 8:51 AM CDT 12/19/2023 9:06 AM CDT Britni Winston PA-C LAB - HEMATOLOGY ORD ERABLES [address] [address], [place] [phone] * TYPE + SCREEN PANEL (12/19/2023 8:51 AM CDT) Antibody Screen NEG 9:56 AM CDT [facility] ABO Rh O POS 12/19/2023 9:56 AM CDT [facility] Blood Bank BLOOD SPECIMEN / Unknown Venipuncture / Unknown 12/19/2023 8:51 AM CDT 12/19/2023 9:14 AM CDT Britni Winston PA-C LAB - BLOOD BANK ORD ERAJANES Performing Organization Address City/[facility]/ZIP Co de Phone Number [facility] [address] [place] [address], [place] [phone] * URIC ACID BLOOD (12/19/2023 8:51 AM CDT) Uric Acid 2.9 2.6 - 6.0 mg/dL 12/19/2023 9:45 AM CDT [facility] Blood BLOOD SPECIMEN / Unknown Venipuncture / Unknown 12/19/2023 8:51 AM CDT 12/19/2023 9:06 AM CDT Britni Winston PA-C LAB - CHEMISTRY ORDE RABQI [facility] [address] [address], [place] [phone] * LDH BLOOD (12/19/2023 8:51 AM CDT) LDH Total 169 125 - 243 Units/L 12/19/2023 9:45 AM CDT [facility] Blood BLOOD SPECIMEN / Unknown Venipuncture / Unknown 12/19/2023 8:51 AM CDT 12/19/2023 9:06 AM CDT Britni Winston PA-C LAB - CHEMISTRY JON Alonzo Organization Address City/State/ZIP Co de Phone Number [facility] [address] [place] [phone], [facility] [phone] * (ABNORMAL) CBC WITH DIFFERENTIAL (12/19/2023 8:51 AM CDT) WBC 0.5(LL) 4.0 - 10.7 x10E9/L 12/19/2023 10:39 AM [facility] RBC Count 2.37(L) 3.90 - 5.20 x10E12/L 12/19/2023 10:39 AM [facility] Hemoglobin 6.8(L) 11.9 - 15.8 g/dL 12/19/2023 10:39 AM [facility] Hematocrit 18.8(L) 34.8 - 46.1 % 12/19/2023 10:39 AM [facility] MCV 79.3(L) 80.0 - 98.0 fL 12/19/2023 10:39 AM [facility] MCH 28.7 26.7 - 33.6 pg 12/19/2023 10:39 AM [facility] MCHC 36.2 31.7 - 36.3 g/dL 12/19/2023 10:39 AM [facility] RDW-CV 13.6 11.3 - 14.8 % 12/19/2023 10:39 AM [facility] Platelet Count 12(LL) 150 - 420 x10E9/L 12/19/2023 10:39 AM [facility] MPV 8.5 7.8 - 11.4 fL 12/19/2023 10:39 AM [facility] Preliminary Absolute Neutrophil 0.03(L) 1.60 - 7.50 x10E9/L 12/19/2023 10:39 AM [facility] Comment:Preliminary ANC pend ing manual confirmation Blood BLOOD SPECIMEN / Unknown Venipuncture / Unknown 12/19/2023 8:51 AM CDT 12/19/2023 9:06 AM CDT Britni Winston PA-C LAB - HEMATOLOGY ORD ERABLES [address] [address], [facility] [phone] * MAGNESIUM BLOOD (12/19/2023 8:51 AM CDT) Magnesium 1.9 1.6 - 2.6 mg/dL 12/19/2023 9:45 AM [facility] Blood BLOOD SPECIMEN / Unknown Venipuncture / Unknown 12/19/2023 8:51 AM CDT 12/19/2023 9:06 AM CDT Britni Winston PA-C LAB - CHEMISTRY ORDE RABQI Performing Organization Address City/[facility]/ZIP Co de Phone Number [address] [address], [facility] [phone] * (ABNORMAL) COMPREHENSIVE METABOLIC PANEL (12/19/2023 8:51 AM CDT) BUN 9 7 - 26 mg/dL 12/19/2023 9:45 AM [facility] Creatinine 0.68 0.56 - 0.96 mg/dL 12/19/2023 9:45 AM [facility] Sodium 137 136 - 145 mmol/L 12/19/2023 9:45 AM [facility] Potassium 4.0 3.5 - 4.5 mmol/L 12/19/2023 9:45 AM [facility] Chloride 106 98 - 107 mmol/L 12/19/2023 9:45 AM [facility] CO2 21(L) 22 - 29 mmol/L 12/19/2023 9:45 AM [facility] Glucose 127(H) 70 - 115 mg/dL 12/19/2023 9:45 AM [facility] Calcium 9.8 8.4 - 10.2 mg/dL 12/19/2023 9:45 AM [facility] Protein Total 7.3 6.0 - 8.3 g/dL 12/19/2023 9:45 AM [facility] Albumin 3.3(L) 3.4 - 5.0 g/dL 12/19/2023 9:45 AM [facility] Bilirubin Total 0.4 0.2 - 1.2 mg/dL 12/19/2023 9:45 AM [facility] Alkaline Phosphatase 77 40 - 150 U/L 12/19/2023 9:45 AM [facility] ALT 17 5 - 55 U/L 12/19/2023 9:45 AM [facility] AST 10 5 - 34 U/L 12/19/2023 9:45 AM [facility] Anion Gap 10 6 - 16 12/19/2023 9:45 AM [facility] BUN/Creatinine Ratio 13 7 - 23 12/19/2023 9:45 AM [facility] Osmolality Calculated 284 275 - 295 mOsm/kg 12/19/2023 9:45 AM [facility] Albumin/Globulin Ratio 0.8(L) 1.1 - 2.3 12/19/2023 9:45 AM [facility] eGFR by CKD-EPI >90 >=90 mL/min/1.7 3 m2 12/19/2023 9:45 AM [facility] Blood BLOOD SPECIMEN / Unknown Venipuncture / Unknown 12/19/2023 8:51 AM CDT 12/19/2023 9:06 AM T Britni Winston PA-C LAB - CHEMISTRY JON NAIDU [facility] Organization Address City/State/ZIP Co de Phone Number [facility] [address] [place] [phone], [facility] [phone] * PHOSPHORUS BLOOD (12/19/2023 8:51 AM CDT) Phosphorus 3.2 2.9 - 5.1 mg/dL 12/19/2023 9:45 AM [facility] Blood BLOOD SPECIMEN / Unknown Venipuncture / Unknown 12/19/2023 8:51 AM CDT 12/19/2023 9:06 AM CDT Britni Winston PA-C LAB - CHEMISTRY JON NAIDU Performing Organization Address City/State/[facility] Co de Phone Number [address] [phone], [facility] [phone] documented in this encounter Visit Diagnoses Diagnosis Wheezing- Primary 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 documented in this encounter Additional Health Concerns Infection Onset Date Last Indicated Resolved Time COVID-19 Under Investigation 12/19/2023 12/19/2023 12/19/2023 3:31 PM CDT documented as of this encounter Care Teams Electronic Console Display Operator Relationship Specialty Start Date End Date Nilam Mayers MD [address] [place] [phone] PCP - General Family Medicine 09/04/23 04/18/24 documented as of this encounter
--- OUTSIDE RECORDS SUMMARY | 2024-08-31 21:28 | XMS_ITS | Encounter Summary ---
Author Organization [facility] Address [address] [place], [place] [address] [address] Care Team Providers Care Plant And Equipment Worker Name Role Phone Nilam Mayers MD Primary Care Provider [phone]- [phone] Encounter Details Date Type Department Care Team (Late st Contact Info) Description 12/25/2023 Orders Only [facility] PH[facility] HEM/ONC [address] [place] [address] Remington Stafford MD [facility] DIV OF HEMATOLOGY & [place] [address] Social History Tobacco Use Types Packs/Day Years [...] and heating? Not hard at all 12/30/2023 [facility] of Occupat ional Health - Occupational Stress [...] slept in a senior living (including now)? Yes 12/30/2023 Sex and Gender [...] st Contact Info) Description 10/27/2024 10:30 AM AUCTION CLERK Appointment [facility] [address] [place] [address] Hussain Carias MD [address] [place] [phone] Britni Winston PA-C [address] [place] [address] 11/17/2024 9:00 AM AUCTION CLERK Office Visit [facility] - Ophthalmology [address] [place] [address], [place] [address] Song Hobson MD [facility] [place] [address] documented as of this encounter Visit Diagnoses Not on filedocumented in this encounter Care Teams Plant And Equipment Worker Relationship Specialty Start Date End Date Nilam Mayers MD [address] [place] [phone] PCP - General Family Medicine 09/04/23 04/18/24 documented as of this encounter
--- OUTSIDE RECORDS SUMMARY | 2024-08-31 21:28 | XMS_ITS | Encounter Summary ---
Author Organization [facility] Address [address] [place], [place] [address] [address] Care Team Providers Care Audio Specialist Name Role Phone Nilam Mayers MD Primary Care Provider [phone]- [phone] Reason for Referral * Radiology Services (Routine) - Closed Specialty Diagnoses / Procedures Referred By Contac t Referred To Contact Ultrasound Diagnoses Acute myeloid leukemia in remission (HCC) Procedures US EXTREMITY LEFT LTD Britni Falk PA-C [address] [place] [address] [address] [place] [address] Referral ID Status Reason Start Date Expiration Date Visits Re quested Visits Authorized [id number] Closed 12/17/2023 12/16/2024 1 1 * Radiology Services (Routine) - Closed Specialty Diagnoses / Procedures Referred By Contac t Referred To Contact Ultrasound Diagnoses Acute myeloid leukemia in remission (HCC) Procedures US EXTREMITY LEFT LTD Britni Falk PA-C [address] [place] [address] [address] [place] [address] Referral ID Status Reason Start Date Expiration Date Visits Re quested Visits Authorized [id number] Closed 12/17/2023 12/16/2024 1 1 * Radiology Services (Routine) - Authorized Specialty Diagnoses / Procedures Referred By Contdrake t Referred To Contact Hematology-Oncology Diagnoses Acute myeloid leukemia in remission (HCC) Procedures US AXILLA LEFT Britni Winston PA-C [address] [place] [address] Referral ID Status Reason Start Date Expiration Date V isits Requested Visits Authorized [id number] Authorized 12/17/2023 12/16/2024 1 1 Encounter Details Date Type Department Care Team (Latest Contact Info) Description 12/17/2023 8:32 AM CDT - 12/17/2023 11:18 AM CDT Hospital Encounter [facility] [address] [place] [address] Hussain Carias MD [address] [place] [phone] Britni Winston PA-C [address] [place], [place] [phone] Discharge Disposition: Home or Self Care Social [...] medical care, and heating? Patient declined 12/01/2023 [facility] of Occupat ional Health - Occupational Stress [...] place to sleep or slept in a usp (including now)? Patient declined 12/01/2023 Sex and Gender Information Value Date Recorded Sex Assigned at Not on file Gender Identity Female 02/13/2024 1:12 PM CDT Sexual Orientation Not on file documented as of this encounter Last Filed Vital Signs Vital Sign Reading Time Taken Comments Blood Pressure 145/95 12/17/2023 8:36 AM CDT Pulse 116 12/17/2023 8:36 AM CDT Temperature 36.8 ??C (98.2 ??F) 12/17/2023 8:36 AM CD T Respiratory Rate 22 12/17/2023 8:36 AM CDT Oxygen Saturation 100% 12/17/2023 8:36 AM CDT Inhaled Oxygen Concentration - - Weight 109.5 kg (241 lb 6.4 oz) 12/17/2023 8:36 AM CDT Height - - Body Mass Index 44.14 12/03/2023 11:44 AM CDT documented in this [...] 12/01/2023 04/30/2024 posaconazole (Noxafil) 100 MG tabletIndications:Ac [place] myeloid leukemia in remission (HCC) Take 3 (three) tablets by mouth daily with dinner 90 tablet 5 12/15/2023 05/20/2024 potassium chloride ER 10 MEQ tablet Take 2 (two) tablets by mouth once daily 30 tablet 3 12/15/2023 03/02/2024 prochlorperazine (Compazine) 10 MG tablet Take 1 (one) tablet by mouth every 8 hours as needed for Nausea/Vomiting 04/30/2024 valACYclovir (Valtrex) 500 MG tabletIndications:Ac [place] myeloid leukemia in remission (HCC) Take 1 (one) tablet by mouth 2 times daily 60 tablet 11 11/03/2023 08/23/2024 documented as of this encounter Progress Notes * Britni Winston PA-C - 12/17/2023 7:28 AM CDT Images from the original note were not included. HEMATOLOGY/ONCOLOGY INPATIENT PROGRESS NOTE Name: Sarah Mckeon Age: [age] year old Date of : 1985 Date of Service: 12/17/2023 Reason for Consult: AML HEMATOLOGY & ONCOLOGY [...] in August of 2023 was admitted to [facility] c/o flu like symptoms and ultimately had marrow biopsy revealing 78% blasts on marrow and flow cytometry confirmed NPM1 mutation. Was sent to [facility] for AML. Completed 7 + 3 [...] She was discharged on 12/06/23. Interval History: C1D17 HiDAC New pimple to left axillary area which pt first noticed two days ago. Pt reports she noticed swelling to the area one day ago and she popped it, noting yellow drainage to the area. However, pt still feels as though there is more drainage in the wound. Also notes generalized fatigue throughout her days. Reports new anal pain, particularly when having a BM which resolves s/p the BM. However, she does note some pressure sensation to the area at rest when sitting. Denies hematochezia or melena. Denies F/C. Denies N/V/D/C. VSS Review of Systems: Review of Systems Constitutional: Negative for chills, fever, malaise/fatigue and weight loss. HENT: Negative for congestion, nosebleeds and sore throat. Eyes: Negative for blurred vision and double vision. Respiratory: Negative for cough and shortness of breath. Cardiovascular: Negative for chest pain. Gastrointestinal: Negative for abdominal pain, blood in stool, constipation, diarrhea, melena, nausea and vomiting. Genitourinary: Negative for dysuria, frequency, hematuria and urgency. Musculoskeletal: Negative for back pain and myalgias. Skin: Negative for rash. Abscess Neurological: Negative for dizziness, tingling and headaches. Past Medical & Surgical History None / Negative Past Oncology History Oncology History Acute myeloid leukemia in remission (HCC) 09/03/2023 Initial Diagnosis 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 ([facility]-HCC) 09/06/2023 - Chemotherapy cytarabine (Cytosar) 460 [...] Active Treatment Days for Sarah Mckeon (until 12/18/2023) 12/03/2023 ONCOLOGY TREATMENT: IP AML CONSOLIDATION - AGE <60 (HIGH DOSE CYTARABINE)(SANDHU HIDAC) Day 5, Cycle 3 (Started) Pre-Medications: ondansetron (Zofran) injection 8 mg, dexAMETHasone (Decadron) injection 8 mg Chemotherapy: cytarabine (Cytosar) 6,700 mg in 0.9% NaCl IV 597 mL infusion Medications SCHEDULED MEDICATIONS: Current Outpatient Medications Medication Sig ??? acetaZOLAMIDE (Diamox) 250 MG tablet Take 1 (one) tablet by mouth 2 times daily Reasons: Pseudotumor Cerebri (Patient not taking: Reported on 12/08/2023) ??? Carboxymethylcellulose Sodium (ARTIFICIAL TEARS OP) ??? dicyclomine (Bentyl) 20 MG tablet Take 1 (one) tablet by mouth 3 times daily as needed ??? famotidine (Pepcid) 20 MG tablet Take 1 (one) tablet by mouth 2 times daily ??? levoFLOXacin (Levaquin) 500 MG tablet Take 1 (one) tablet by mouth once daily ??? medroxyPROGESTERone (Depo-Provera) 150 MG/ML vial Inject 1 mL into muscle every 84 days (Patient not taking: Reported on 12/08/2023) ??? ondansetron (Zofran) 8 MG tablet Take [...] 8 hours as needed for Nausea/Vomiting ??? valACYclovir (Valtrex) 500 MG tablet Take 1 (one) tablet by mouth 2 times daily No current facility-administered medications for this encounter. Allergies No Known Allergies OBJECTIVE Physical Exam There were no vitals filed for this visit. Wt Readings from Last 3 Encounters: 12/15/23 108.5 kg (239 lb 4.8 oz) 12/12/23 108.4 kg (238 lb 14.4 oz) 12/10/23 108.6 kg (239 lb 6.4 oz) Karnofsky/ECO/0 General appearance - [...] normal coloration and turgor, no rashes noted Erythema and induration noted to an approximately 1cm area to the inferior medial left axillary region Rectal exam - No external hemorrhoids, no tenderness to palpation along external anal sphincter or surrounding areas, no erythema or warmth CVC - dressing dry and intact without redness, swelling, or stated tenderness Laboratory Results Recent Labs Component Name 12/15/23 1207 12/15/23 0939 12/12/23 1221 12/12/23 1000 12/10/23 1148 12/10/23 0900 12/08/23 1205 12/08/23 1011 12/06/23 0847 12/05/23 2022 12/04/23 1946 12/03/23 2040 WBC - 0.2* - 0.2* - 0.3* - 1.3* - 2.1* 3.3* 3.3* RBC - 2.18* - 2.49* - 2.67* - 3.05* - 2.37* 2.44* 2.44* HGB - 6.2* - 7.1* - 7.6* - 8.8* - 6.8* 7.2* 7.1* HCT - 17.3* - 19.7* - 20.9* - 24.0* - 19.0* 19.9* 20.3* MCV - 79.4* - 79.1* - 78.3* - 78.7* - 80.2 81.6 83.2 MCHC - 35.8 - 36.0 - 36.4* - 36.7* - 35.8 36.2 35.0 PLTCOUNT 49* 15* 52* 24* - 17* - 9* - 33* 48* 54* NEUTPCT - - - - - - - - - 92.7* 89.0* 87.8* LYMPHPCT - - - - - - - - - 5.8* 6.7* 5.8* NEUTABS - - - - - - - 0.98* 1.03* - 1.91 2.93 2.85 LYMPHABS - - - - - - - 0.27* - 0.12* 0.22* 0.19* BASOABS - - - - - - - - - 0.00 0.00 0.01 - = values in this interval not displayed. Recent Labs Component Name 12/15/23 0912/12/23 1000 12/10/23 0900 POTASSIUM 3.8 3.8 3.4* CO2 20* 21* 19* BUN 10 10 11 CREATININE 0.63 0.62 0.64 EGFR >90 >90 >90 GLUCOSE 151* 154* 157* CALCIUM 9.6 9.7 9.4 MAGNESIUM 1.9 1.9 1.7 PHOS 3.3 3.7 3.2 ALT 23 26 22 AST 12 15 14 ALKPHOS 79 78 70 Recent Labs Component Name 12/15/23 0939 12/12/23 1000 12/10/23 0900 MAGNESIUM 1.9 1.9 1.7 Recent Labs Component Name 12/15/23 0939 12/12/23 1000 12/10/23 0900 PHOS 3.3 3.7 3.2 Pathology Results Personally reviewed and summarized above in Hematology & Oncology History Radiology Results US left upper extremity (nonvascular) (12/17/23): final read pending, prelim read negative for areas of loculation ASSESSMENT Sarah Mckeon is a 38 year old female with favorable risk AML, NPM-1 mutation, presenting for C3 ofHiDAC therapy, today is D6C3. 1. 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 PLAN: - C3D17 HiDAC consolidation - Follow US LUE nonvascular to final read. - Start Bactrim DS x 5 days, see above. - Continue OI ppx with valtrex, posaconazole, and levaquin while neutropenic. DISPOSITION: RTC 12/18, 12/21, and 12/25 for labs, ? transfusions and on 12/28 for ABEL, C4 HiDAC, admit to heme, labs, and ?transfusions Total time of visit: 30 minutes including medical discussion and decision making Britni Winston PA-C Blood & Marrow Transplant [facility] documented in this encounter Plan of Treatment Upcoming Encounters Date Type Department Care Team (Late st Contact Info) Description 10/27/2024 10:30 AM LEAN SENSEI Appointment [facility] [address] [place] [address] Hussain Carias MD [address] [place] [phone] Britni Winston PA-C [address] [place], [place] [id number] 11/17/2024 9:00 AM LEAN SENSEI Office Visit [facility] - Ophthalmology [address] [facility], [place] [address] Song Hobson MD [address] [place] [address] [place] [phone] documented as of this encounter Procedures Procedure Name Priority Date/Time Associated Diagnosis Comments US EXTREMITY LEFT LTD NONVASC Routine 12/17/2023 12:07 PM CDT Acute myeloid leukemia in remission (HCC) URIC ACID BLOOD STAT 12/17/2023 8:37 AM CDT Acute myeloid leukemia in remission (HCC) CBC W AUTO DIFFERENTIAL STAT 12/17/2023 8:37 AM CDT Acute myeloid leukemia in remission (HCC) COMPREHENSIVE METABOLIC PANEL STAT 12/17/2023 8:37 AM CDT Acute myeloid leukemia in remission (HCC) PHOSPHORUS BLOOD STAT 12/17/2023 8:37 AM CDT Acute myeloid leukemia in remission (HCC) MAGNESIUM BLOOD STAT 12/17/2023 8:37 AM CDT Acute myeloid leukemia in remission (HCC) LDH BLOOD STAT 12/17/2023 8:37 AM CDT Acute myeloid leukemia in remission (HCC) documented in this encounter Results * US EXTREMITY LEFT LTD NONVASC (12/17/2023 12:07 PM CDT) Anatomical Region Laterality Modality Lower Extremity, Upper Extremity Ultrasound 12/17/2023 11:5 3 AM CDT Narrative 12/17/2023 4:31 PM CDT PROCEDURE: ??US EXTREMITY LEFT LTD NONVASC, DATE/TIME OF EXAM: ??12/17/2023 12:07 PM, LOCATION ??[facility] 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 in [...] cellulitis. > Dictated by Aakash Mora MD ([facility]) 12/17/2023 11:53 AM I, Julius Tapia MD have personally reviewed and interpreted this examination/study. > Interpreting Provider: Julius Tapia MD on 12/17/2023 4:31 PM Procedure Note Julius Tapia MD - 12/17/2023 PROCEDURE: US EXTREMITY LEFT LTD NONVASC, DATE/TIME OF EXAM: 12/17/2023 12:07 PM, LOCATION [facility] 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 in [...] cellulitis. > Dictated by Aakash Mora MD ([facility]) 12/17/2023 11:53 AM I, Julius Tapia MD have personally reviewed and interpreted this examination/study. > Interpreting Provider: Julius Tapia MD on 12/17/2023 4:31 PM Britni Winston PA-C US ORDERABLES * URIC ACID BLOOD (12/17/2023 8:37 AM CDT) Uric Acid 3.1 2.6 - 6.0 mg/dL 12/17/2023 9:24 AM CDT [facility] Blood BLOOD SPECIMEN / Unknown Venipuncture / Unknown 12/17/2023 8:37 AM CDT 12/17/2023 8:44 AM CDT Britni Winston PA-C LAB - CHEMISTRY ORDAzul NAIDU [address] [address], [facility] [phone] * LDH BLOOD (12/17/2023 8:37 AM CDT) Pathologist [facility] LDH Total 184 125 - 243 Units/L 12/17/2023 9:24 AM [facility] Blood BLOOD SPECIMEN / Unknown Venipuncture / Unknown 12/17/2023 8:37 AM CDT 12/17/2023 8:44 AM CDT Britni Winston PA-C LAB - CHEMISTRY JON NAIDU Performing Organization Address [facility]/ZIP Co de Phone Number [address] [address], [facility] [phone] * (ABNORMAL) CBC WITH DIFFERENTIAL (12/17/2023 8:37 AM CDT) Pathologist [facility] WBC 0.2(LL) 4.0 - 10.7 x10E9/L 12/17/2023 9:32 AM [facility] Comment:No differential repo rted. WBC count <0.5 RBC Count 2.63(L) 3.90 - 5.20 x10E12/L 12/17/2023 9:32 AM [facility] Hemoglobin 7.7(L) 11.9 - 15.8 g/dL 12/17/2023 9:32 AM [facility] Hematocrit 20.9(L) 34.8 - 46.1 % 12/17/2023 9:32 AM [facility] MCV 79.5(L) 80.0 - 98.0 fL 12/17/2023 9:32 AM [facility] MCH 29.3 26.7 - 33.6 pg 12/17/2023 9:32 AM [facility] MCHC 36.8(H) 31.7 - 36.3 g/dL 12/17/2023 9:32 AM CDT [facility] RDW-CV 13.5 11.3 - 14.8 % 12/17/2023 9:32 AM CDT [facility] Platelet Count 37(L) 150 - 420 x10E9/L 12/17/2023 9:32 AM CDT [facility] MPV 9.9 7.8 - 11.4 fL 12/17/2023 9:32 AM CDT [facility] Preliminary Absolute Neutrophil 12/17/2023 9:32 AM CDT [facility] Blood BLOOD SPECIMEN / Unknown Venipuncture / Unknown 12/17/2023 8:37 AM CDT 12/17/2023 8:44 AM CDT Britni Winston PA-C LAB - HEMATOLOGY ORD ERABLES Performing Organization Address City/[facility]/ZIP Co de Phone Number [address] [address], [facility] [phone] * MAGNESIUM BLOOD (12/17/2023 8:37 AM CDT) Magnesium 2.0 1.6 - 2.6 mg/dL 12/17/2023 9:24 AM CDT [facility] Blood BLOOD SPECIMEN / Unknown Venipuncture / Unknown 12/17/2023 8:37 AM CDT 12/17/2023 8:44 AM CDT Britni Winston PA-C LAB - CHEMISTRY ORDE RABQI [facility] [address] [place] [phone], [place] [phone] * (ABNORMAL) COMPREHENSIVE METABOLIC PANEL (12/17/2023 8:37 AM CDT) BUN 9 7 - 26 mg/dL 12/17/2023 9:24 AM CDT [facility] Creatinine 0.62 0.56 - 0.96 mg/dL 12/17/2023 9:24 AM CDT [facility] Sodium 136 136 - 145 mmol/L 12/17/2023 9:24 AM [facility] Potassium 3.8 3.5 - 4.5 mmol/L 12/17/2023 9:24 AM [facility] Chloride 107 98 - 107 mmol/L 12/17/2023 9:24 AM [facility] CO2 18(L) 22 - 29 mmol/L 12/17/2023 9:24 AM [facility] Glucose 162(H) 70 - 115 mg/dL 12/17/2023 9:24 AM [facility] Calcium 9.9 8.4 - 10.2 mg/dL 12/17/2023 9:24 AM [facility] Protein Total 7.3 6.0 - 8.3 g/dL 12/17/2023 9:24 AM [facility] Albumin 3.6 3.4 - 5.0 g/dL 12/17/2023 9:24 AM [facility] Bilirubin Total 0.6 0.2 - 1.2 mg/dL 12/17/2023 9:24 AM [facility] Alkaline Phosphatase 91 40 - 150 U/L 12/17/2023 9:24 AM [facility] ALT 22 5 - 55 U/L 12/17/2023 9:24 AM [facility] AST 12 5 - 34 U/L 12/17/2023 9:24 AM [facility] Anion Gap 11 6 - 16 12/17/2023 9:24 AM [facility] BUN/Creatinine Ratio 15 7 - 23 12/17/2023 9:24 AM [facility] Osmolality Calculated 284 275 - 295 mOsm/kg 12/17/2023 9:24 AM [facility] Albumin/Globulin Ratio 1.0(L) 1.1 - 2.3 12/17/2023 9:24 AM [facility] eGFR by CKD-EPI >90 >=90 mL/min/1.7 3 m2 12/17/2023 9:24 AM [facility] Blood BLOOD SPECIMEN / Unknown Venipuncture / Unknown 12/17/2023 8:37 AM CDT 12/17/2023 8:44 AM CDT Britni Winston PA-C LAB - CHEMISTRY JON NAIDU [address] [place] [address], [place] [phone] * PHOSPHORUS BLOOD (12/17/2023 8:37 AM CDT) Phosphorus 3.4 2.9 - 5.1 mg/dL 12/17/2023 9:24 AM CDT [facility] Blood BLOOD SPECIMEN / Unknown Venipuncture / Unknown 12/17/2023 8:37 AM CDT 12/17/2023 8:44 AM CDT Britni Winston PA-C LAB - CHEMISTRY JON NAIDU [address] [address], [facility] [phone] documented in this encounter Visit Diagnoses Diagnosis 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 documented in this encounter Care Teams Audio Specialist Relationship Specialty Start Date End Date Nilam [place]ers MD [address] [place] [phone] PCP - General Family Medicine 09/04/23 04/18/24 documented as of this encounter
--- OUTSIDE RECORDS SUMMARY | 2024-08-31 21:28 | XMS_ITS | Encounter Summary ---
Author Organization [facility] Address [address] [place], [place] [address] [address] Care Team Providers Care Porcelain Waxer Name Role Phone Nilam [place] MD Primary Care Provider +1- [phone] Encounter Details Date Type Department Care Team (Late st Contact Info) Description 12/24/2023 Telephone [facility] [address] [place] [address] Vanessa Lindsey Social History Tobacco Use Types Packs/Day Years [...] medical care, and heating? Patient declined 12/01/2023 [facility] [place] of Occupat ional Health - Occupational Stress [...] or slept in a penitentiary (including now)? Patient declined 12/01/2023 Sex and [...] st Contact Info) Description 10/27/2024 10:30 AM SHEET METAL ASSEMBLER Appointment [facility] [address] [place] [address] Hussain Carias MD [address] [place] [address] Britni Winston, PABaronC [address] [place] [address] 11/17/2024 9:00 AM SHEET METAL ASSEMBLER Office Visit [facility] - Ophthalmology [address] [place] [address], [place] [phone] Song Hobson MD [address] [place] [address] [place] [phone] documented as of this encounter Visit Diagnoses Not on filedocumented in this encounter Care Teams Porcelain Waxer Relationship Specialty Start Date End Date Nilam [place]ers MD [address] [place] [phone] PCP - General Family Medicine 09/04/23 04/18/24 documented as of this encounter
--- OUTSIDE RECORDS SUMMARY | 2024-08-31 21:28 | XMS_ITS | Encounter Summary ---
Author Organization [facility] Address [address] [place], [place] [address] [address] Care Team Providers Care Commissary Officer Name Role Phone Nilam Mayers MD Primary Care Provider [phone] Reason for Visit * Auth/Cert (Routine) Specialty Diagnoses / Procedures Referred By Contac t Referred To Contact Diagnoses AML Referral ID Status Reason Start Date Expiration Date Visits Re quested Visits Authorized [id number] 1 1 Encounter Details Date Type Department Care Team (Late st Contact Info) Description 12/01/2023 5:46 PM CDT - 12/06/2023 11:38 AM CDT Hospital Encounter [facility] ACUTE [address] [place] [address] Hussain Carias MD [address] [place] [phone] Remington Stafford MD [address] [facility] DIV OF HEMATOLOGY & [place] [address] Jair Burgess MD [address] [place] [phone] Susana Perez MD [address] [place] [address] Seth Cali MD [address] DIV OF [facility] [place] [address] Internal Medicine Discharge Disposition: Home or Self [...] medical care, and heating? Patient declined 12/01/2023 [facility] - Occupational [...] or slept in a jail (including now)? Patient declined 12/01/2023 Sex and Gender Information Value Date Recorded Sex Assigned at Not on file Gender Identity Female 02/13/2024 1:12 PM CDT Sexual Orientation Not on file documented as of this encounter Last Filed Vital Signs Vital Sign Reading Time Taken Comments Blood Pressure 124/88 12/06/2023 7:55 AM CDT Pulse 91 12/06/2023 7:55 AM CDT Temperature 36.5 ??C (97.7 ??F) 12/06/2023 7:55 AM CD T Respiratory Rate 18 12/06/2023 7:18 AM CDT Oxygen Saturation 100% 12/06/2023 7:55 AM CDT Inhaled Oxygen Concentration - - Weight 106.8 kg (235 lb 6.4 oz) 12/06/2023 4:44 AM CDT Height 157.5 cm (5' 2.01 ) 12/03/2023 1 1:44 AM CDT Body Mass Index 43.04 12/03/2023 11:44 AM CDT documented in this [...] No 12/01/2023 documented as of this encounter Discharge Summaries * Anatoly Moreno MD - 12/06/2023 9:14 AM CDT Physician Discharge Summary Patient ID: Sarah Mckeon [id number] 38 year old 1985 Admission Date: 12/01/2023 Discharge Date and Time: 12/06/2023, 9:15 AM Admitting Physician: Hussain Carias MD Discharge Physician: Seth Cali MD Present on Admission: ??? Acute myeloid leukemia in remission (HCC) ??? Pancytopenia (HCC) ??? Pseudotumor cerebri Indication for Admission: Chemotherapy administration Discharge Diagnoses: ??? Acute myeloid leukemia in remission (HCC) ??? Pancytopenia (HCC) ??? Pseudotumor cerebri Admission Condition: stable Discharged Condition: stable Discharge Exam: Vitals: Temp: [97.7 ??F (36.5 ??C)-98.5 ??F (36.9 ??C)] 97.7 ??F (36.5 ??C) Pulse: [76-103] 91 Resp: [18-28] 18 BP: (110-135)/(66-88) 124/88 General: alert and oriented, no acute distress Eyes: extraocular muscles intact Mouth/Throat: moist mucous membranes Neck: good range of motion CV: regular rate and rhythm, no murmurs appreciated Resp: clear to auscultation bilaterally, no wheezes or crackles heard Abd: soft, nontender, nondistended Extremities: no lower extremity edema, no cyanosis Skin: no rashes or lesions noted Neuro: moving all extremities well Hospital Course: Sarah Mckeon is a 38 year old female recently diagnosed with Acute Myeloid Leukemia by bone marrowbiopsy in August of 2023. She is in remission per bone marrow biopsy in 10/01/23. 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 She received cycle 1 on 10/04 and cycle 2 on 11/03/23.??She presented on 12/01 for cycle three ofHiDAC consolidation. She received her chemotherapy w/o any major complications. Patient was discharged on opportunistic infection ppx. Also acetazolamide prescribed for her Dx of pseudotumor cerebrii. Follow Up List: - Hem Onc and Ophto Consults: IP CONSULT TO NUTRITIONAL SERV IP CONSULT TO ONCOLOGY Significant Diagnostic Studies: Labs this admission: Results for orders placed or performed during the hospital encounter of 12/01/23 (from the past 48 hour(s)) CBC W AUTO DIFFERENTIAL Result Value Ref Range WBC 3.3 (L) 4.0 - 10.7 x10E9/L RBC Count 2.44 (L) 3.90 - 5.20 x10E12/L Hemoglobin 7.2 (L) 11.9 - 15.8 g/dL Hematocrit 19.9 (L) 34.8 - 46.1 % MCV 81.6 80.0 - 98.0 fL MCH 29.5 26.7 - 33.6 pg MCHC 36.2 31.7 - 36.3 g/dL RDW-CV 14.6 11.3 - 14.8 % Platelet Count 48 (L) 150 - 420 x10E9/L MPV 11.4 7.8 - 11.4 fL Preliminary Absolute Neutrophil 2.93 1.60 - 7.50 x10E9/L Neutrophil % 89.0 (H) 41.0 - 74.0 % Lymphocyte % 6.7 (L) 17.0 - 47.0 % Monocyte % 4.0 3.0 - 11.0 % Eosinophil % 0.0 0.0 - 7.0 % Basophil % 0.0 0.0 - 1.6 % Immature Granulocytes % 0.3 0.0 - 1.0 % Neutrophil Absolute 2.93 1.60 - 7.50 x10E9/L Lymphocyte Absolute 0.22 (L) 1.00 - 4.40 x10E9/L Monocyte Absolute 0.13 (L) 0.15 - 1.00 x10E9/L Eosinophil Absolute 0.00 0.00 - 0.60 x10E9/L Basophil Absolute 0.00 0.00 - 0.13 x10E9/L COMPREHENSIVE METABOLIC PANEL Result Value Ref Range BUN 17 7 - 26 mg/dL Creatinine 0.82 0.56 - 0.96 mg/dL Sodium 137 136 - 145 mmol/L Potassium 3.8 3.5 - 4.5 mmol/L Chloride 114 (H) 98 - 107 mmol/L CO2 15 (L) 22 - 29 mmol/L Glucose 256 (H) 70 - 115 mg/dL Calcium 8.9 8.4 - 10.2 mg/dL Protein Total 6.8 6.0 - 8.3 g/dL Albumin 3.6 3.4 - 5.0 g/dL Bilirubin Total 0.5 0.2 - 1.2 mg/dL Alkaline Phosphatase 69 40 - 150 U/L ALT 27 5 - 55 U/L AST 10 5 - 34 U/L Anion Gap 8 6 - 16 BUN/Creatinine Ratio 21 7 - 23 Osmolality Calculated 294 275 - 295 mOsm/kg Albumin/Globulin Ratio 1.1 1.1 - 2.3 eGFR by CKD-EPI >90 >=90 mL/min/1.73 m2 MAGNESIUM BLOOD Result Value Ref Range Magnesium 2.4 1.6 - 2.6 mg/dL PHOSPHORUS BLOOD Result Value Ref Range Phosphorus 2.5 (L) 2.9 - 5.1 mg/dL CBC W AUTO DIFFERENTIAL Result Value Ref Range WBC 2.1 (L) 4.0 - 10.7 x10E9/L RBC Count 2.37 (L) 3.90 - 5.20 x10E12/L Hemoglobin 6.8 (L) 11.9 - 15.8 g/dL Hematocrit 19.0 (L) 34.8 - 46.1 % MCV 80.2 80.0 - 98.0 fL MCH 28.7 26.7 - 33.6 pg MCHC 35.8 31.7 - 36.3 g/dL RDW-CV 14.5 11.3 - 14.8 % Platelet Count 33 (L) 150 - 420 x10E9/L MPV 12.3 (H) 7.8 - 11.4 fL Preliminary Absolute Neutrophil 1.91 1.60 - 7.50 x10E9/L Neutrophil % 92.7 (H) 41.0 - 74.0 % Lymphocyte % 5.8 (L) 17.0 - 47.0 % Monocyte % 0.5 (L) 3.0 - 11.0 % Eosinophil % 0.0 0.0 - 7.0 % Basophil % 0.0 0.0 - 1.6 % Immature Granulocytes % 1.0 0.0 - 1.0 % Neutrophil Absolute 1.91 1.60 - 7.50 x10E9/L Lymphocyte Absolute 0.12 (L) 1.00 - 4.40 x10E9/L Monocyte Absolute 0.01 (L) 0.15 - 1.00 x10E9/L Eosinophil Absolute 0.00 0.00 - 0.60 x10E9/L Basophil Absolute 0.00 0.00 - 0.13 x10E9/L COMPREHENSIVE METABOLIC PANEL Result Value Ref Range BUN 18 7 - 26 mg/dL Creatinine 0.71 0.56 - 0.96 mg/dL Sodium 138 136 - 145 mmol/L Potassium 4.1 3.5 - 4.5 mmol/L Chloride 114 (H) 98 - 107 mmol/L CO2 16 (L) 22 - 29 mmol/L Glucose 293 (H) 70 - 115 mg/dL Calcium 9.0 8.4 - 10.2 mg/dL Protein Total 6.4 6.0 - 8.3 g/dL Albumin 3.4 3.4 - 5.0 g/dL Bilirubin Total 0.4 0.2 - 1.2 mg/dL Alkaline Phosphatase 68 40 - 150 U/L ALT 21 5 - 55 U/L AST 8 5 - 34 U/L Anion Gap 8 6 - 16 BUN/Creatinine Ratio 25 (H) 7 - 23 Osmolality Calculated 299 (H) 275 - 295 mOsm/kg Albumin/Globulin Ratio 1.1 1.1 - 2.3 eGFR by CKD-EPI >90 >=90 mL/min/1.73 m2 MAGNESIUM BLOOD Result Value Ref Range Magnesium 2.4 1.6 - 2.6 mg/dL PHOSPHORUS BLOOD Result Value Ref Range Phosphorus 2.7 (L) 2.9 - 5.1 mg/dL TYPE + SCREEN PANEL Result Value Ref Range Antibody Screen NEG ABO Rh O POS Imaging: No results found. Disposition: Home Patient Instructions: Medication List START taking these medications acetaZOLAMIDE 250 MG tablet Commonly known as: Diamox Take 1 (one) tablet by mouth 2 times daily Reasons: Pseudotumor Cerebri levoFLOXacin 500 MG tablet Commonly known as: Levaquin Take 1 (one) tablet by mouth once daily CONTINUE taking these medications ARTIFICIAL TEARS OP famotidine 20 MG tablet Commonly known as: Pepcid Take 1 (one) tablet by mouth 2 times daily medroxyPROGESTERone 150 MG/ML vial Commonly known as: Depo-Provera ondansetron 8 MG tablet Commonly known as: Zofran Take one tablet by mouth twice a day 1 hour before midostaurin on days 8 to 21 and one tablet every12 hours as needed for breakthrough nausea/vomiting. Reasons: Nausea and Vomiting caused by Cancer Chemotherapy posaconazole 100 MG tablet Commonly known as: Noxafil Take 3 (three) tablets by mouth daily with dinner potassium chloride ER 10 MEQ tablet Take 2 (two) tablets by mouth once daily valACYclovir 500 MG tablet Commonly known as: Valtrex Take 1 (one) tablet by mouth 2 times daily STOP taking these medications prochlorperazine 10 MG tablet Commonly known as: Compazine Where to Get Your Medications These medications were sent to [facility]/pharmacy #[id number] - [address] [facility] [address] [place] [id number] ?? acetaZOLAMIDE 250 MG tablet ?? ondansetron 8 MG tablet Discharge Instructions Dear Mrs Mckeon, You were admitted to [facility] for administration of your chemotherapy regimen. Everything went well. Below is the list of medications that you should be taking. They were sent to : Please note the following instructions: DISCHARGE MEDICATIONS: Below were changes made to your home medications: New meds started: Current Discharge Medication List START taking these medications Details acetaZOLAMIDE (Diamox) 250 MG tablet Take 1 (one) tablet by mouth 2 times daily Reasons: Pseudotumor Cerebri Qty: 60 tablet, Refills: 3 Home meds to stop: Current Discharge Medication List STOP taking these medications prochlorperazine (Compazine) 10 MG tablet Comments: Reason for Stopping: Home meds that have changed: Current Discharge Medication List CONTINUE these medications which have CHANGED Details ondansetron (Zofran) 8 MG tablet Take one tablet by mouth twice a day 1 hour before midostaurin on days 8 to 21 and one tablet every 12 hours as needed for breakthrough nausea/vomiting. Reasons: Nausea and Vomiting caused by Cancer Chemotherapy Qty: 100 tablet, Refills: 11 Associated Diagnoses: Acute myeloid leukemia in remission (HCC) Home meds that are continued: Current Discharge Medication List CONTINUE these medications which have NOT CHANGED Details Carboxymethylcellulose Sodium (ARTIFICIAL TEARS OP) famotidine (Pepcid) 20 MG tablet Take 1 (one) tablet by mouth 2 times daily Qty: 60 tablet, Refills: 1 Associated Diagnoses: Tonsillitis levoFLOXacin (Levaquin) 500 MG tablet Take 1 (one) tablet by mouth once daily Qty: 30 tablet, Refills: 1 medroxyPROGESTERone (Depo-Provera) 150 MG/ML vial Inject 1 mL into muscle every 84 days posaconazole (Noxafil) 100 MG tablet Take 3 (three) tablets by mouth daily with dinner Qty: 90 tablet, Refills: 5 Associated Diagnoses: Acute myeloid leukemia in remission (HCC) potassium chloride ER 10 MEQ tablet Take 2 (two) tablets by mouth once daily Qty: 30 tablet, Refills: 3 valACYclovir (Valtrex) 500 MG tablet Take 1 (one) tablet by mouth 2 times daily Qty: 60 tablet, Refills: 11 Associated Diagnoses: Acute myeloid leukemia in remission (HCC) If you have any questions about your medications, please be sure to ask the pharmacy when you pickling drum operator your prescription. You may also call your primary provider if you are uncertain if you should be taking your medication. CONCERNING SYMPTOMS: When to call your healthcare provider: Call your healthcare provider immediately if you have any of the following: - Dizziness - Weakness in arms/legs - Fever of 101??F or higher - Shaking chills - Intractable nausea and vomiting - Severe headache - Confusion/altered mental status - Seizures (convulsions) If you are unable to reach your primary provider, please go to the nearest emergency room or call EMS ([phone]). FOLLOW-UP APPOINTMENTS: It is essential that you keep all of your follow-up appointments and go to your doctors appointments as scheduled. If a follow-up with your primary care provider has not been scheduled, you need to schedule an appointment to follow- up on your hospitalization within 1-2 weeks. If there is a conflict, please call the clinic ahead of time and reschedule the appointment. If you need to call [facility] for any reason, you may reach us at [phone] and dial 0 for the oil and gas well treatment operator. It was a pleasure taking care of you and we wish you all the best. Kind regards, Your Hospital Team [address] [id number] Activity: activity as tolerated Diet: Regular diet Wound Care: None needed Route to: PCP Signed: Anatoly Moreno MD 12/06/2023 9:15 AM Associated attestation - Seth Cali MD - 12/16/2023 12:54 PM CDT Attending Physician Attestation I have seen and examined the patient with the resident and I agree with the findings and plan of care as documented by Dr. Moreno. Acute myeloid leukemia in remission (HCC) (POA: Yes) Pancytopenia (HCC) (POA: Yes) Pseudotumor cerebri (POA: Yes) Date of Service: 12/06/2023 Time spent on discharge: 25 minutes. Time was spent on preparation of discharge records, counseling patient, and working with social work and nursing. Seth Cali MD documented in this encounter Discharge Instructions * Discharge Instructions* Anatoly Moreno MD - 12/06/2023 8:56 AM CDT Dear Mrs Mckeon, You were admitted to [facility] for administration of your chemotherapy regimen. Everything went well. Below is the list of medications that you should be taking. They were sent to : Please note the following instructions: DISCHARGE MEDICATIONS: Below were changes made to your home medications: New meds started: Current Discharge Medication List START taking these medications Details acetaZOLAMIDE (Diamox) 250 MG tablet Take 1 (one) tablet by mouth 2 times daily Reasons: Pseudotumor Cerebri Qty: 60 tablet, Refills: 3 Home meds to stop: Current Discharge Medication List STOP taking these medications prochlorperazine (Compazine) 10 MG tablet Comments: Reason for Stopping: Home meds that have changed: Current Discharge Medication List CONTINUE these medications which have CHANGED Details ondansetron (Zofran) 8 MG tablet Take one tablet by mouth twice a day 1 hour before midostaurin on days 8 to 21 and one tablet every 12 hours as needed for breakthrough nausea/vomiting. Reasons: Nausea and Vomiting caused by Cancer Chemotherapy Qty: 100 tablet, Refills: 11 Associated Diagnoses: Acute myeloid leukemia in remission (HCC) Home meds that are continued: Current Discharge Medication List CONTINUE these medications which have NOT CHANGED Details Carboxymethylcellulose Sodium (ARTIFICIAL TEARS OP) famotidine (Pepcid) 20 MG tablet Take 1 (one) tablet by mouth 2 times daily Qty: 60 tablet, Refills: 1 Associated Diagnoses: Tonsillitis levoFLOXacin (Levaquin) 500 MG tablet Take 1 (one) tablet by mouth once daily Qty: 30 tablet, Refills: 1 medroxyPROGESTERone (Depo-Provera) 150 MG/ML vial Inject 1 mL into muscle every 84 days posaconazole (Noxafil) 100 MG tablet Take 3 (three) tablets by mouth daily with dinner Qty: 90 tablet, Refills: 5 Associated Diagnoses: Acute myeloid leukemia in remission (HCC) potassium chloride ER 10 MEQ tablet Take 2 (two) tablets by mouth once daily Qty: 30 tablet, Refills: 3 valACYclovir (Valtrex) 500 MG tablet Take 1 (one) tablet by mouth 2 times daily Qty: 60 tablet, Refills: 11 Associated Diagnoses: Acute myeloid leukemia in remission (HCC) If you have any questions about your medications, please be sure to ask the pharmacy when you pickling drum operator your prescription. You may also call your primary provider if you are uncertain if you should be taking your medication. CONCERNING SYMPTOMS: When to call your healthcare provider: Call your healthcare provider immediately if you have any of the following: - Dizziness - Weakness in arms/legs - Fever of 101??F or higher - Shaking chills - Intractable nausea and vomiting - Severe headache - Confusion/altered mental status - Seizures (convulsions) If you are unable to reach your primary provider, please go to the nearest emergency room or call EMS (911). FOLLOW-UP APPOINTMENTS: It is essential that you keep all of your follow-up appointments and go to your doctors appointments as scheduled. If a follow-up with your primary care provider has not been scheduled, you need to schedule an appointment to follow- up on your hospitalization within 1-2 weeks. If there is a conflict, please call the clinic ahead of time and reschedule the appointment. If you need to call [facility] for any reason, you may reach us at [phone] and dial 0 for the oil and gas well treatment operator. It was a pleasure taking care of you and we wish you all the best. Kind regards, Your Hospital Team [address] [address] documented in this encounter Medications at Time of Discharge Medication Sig Dispensed Refills Start Date End Date Carboxymethylcellulos e Sodium (ARTIFICIAL TEARS OP) famotidine (Pepcid) 20 MG tabletIndications:Ton sillitis Take 1 (one) tablet by mouth 2 times daily 60 tablet 1 10/17/2023 acetaZOLAMIDE (Diamox) 250 MG tabletIndications:Idi opathic Intracranial Hypertension Take 1 (one) tablet by mouth 2 times daily Reasons: Pseudotumor Cerebri 60 tablet 3 12/06/2023 12/17/2023 levoFLOXacin (Levaquin) 500 MG tablet Take 1 (one) tablet by mouth once daily 30 tablet 1 10/08/2023 12/15/2023 medroxyPROGESTERone (Depo-Provera) 150 MG/ML vial Inject 1 mL into muscle every 84 days 10/14/2023 04/30/2024 ondansetron (Zofran) 8 MG tabletIndications:Can cer Chemotherapy-Induced Nausea and Vomiting Take one tablet by mouth twice a day 1 hour before midostaurin on days 8 to 21 and one tablet every 12 hours as needed for breakthrough nausea/vomiting. Reasons: Nausea and Vomiting caused by Cancer Chemotherapy 100 tablet 11 12/01/2023 04/30/2024 posaconazole (Noxafil) 100 MG tabletIndications:Acu te myeloid leukemia in remission (HCC) Take 3 (three) tablets by mouth daily with dinner 90 tablet 5 11/03/2023 12/15/2023 potassium chloride ER 10 MEQ tablet Take 2 (two) tablets by mouth once daily 30 tablet 3 11/10/2023 12/15/2023 valACYclovir (Valtrex) 500 MG tabletIndications:Acu te myeloid leukemia in remission (HCC) Take 1 (one) tablet by mouth 2 times daily 60 tablet 11 11/03/2023 08/23/2024 documented as of this encounter Progress Notes * Velma Toney MD - 12/06/2023 10:52 AM CDT Images from the original note were not included. HEMATOLOGY/ONCOLOGY INPATIENT PROGRESS NOTE Name: Sarah Mckeon Age: [age] year old Date of : 1985 Date of Service: 12/06/2023 Reason for Consult: AML HEMATOLOGY & ONCOLOGY HISTORY Principal Diagnosis: AML Current Therapy: C3D5 HiDAC consolidation SUBJECTIVE History of Present Illness Chief Complaint: Scheduled admission for C3 HiDAC History of Present Illness: Sarah Mckeon is a 38 year old female with favorable risk AML, NPM-1 mutation in complete remissionpresenting for C3 of HiDAC consolidation therapy. Originally in August of 2023 was admitted to [facility] c/o flu like symptoms and ultimately had marrow biopsy revealing 78% blasts on marrow and flow cytometry confirmed NPM1 mutation. Was sent to [facility] for AML. Completed 7 [...] without any side effects or transfusion requirements. Interval History: Hb 6.8, received 1 unit of blood today Meds to bedside Plan to dc today Review of Systems: As noted in HPI. All other systems reviewed and negative. Past Medical & Surgical History Patient Active Problem List Diagnosis ??? Pseudotumor cerebri ??? Hypernatremia ??? Hypophosphatemia ??? Anemia ??? Vaginal bleeding ??? IIH (idiopathic intracranial hypertension) ??? Acute hypoxic respiratory failure (HCC) ??? Pulmonary edema (HCC) ??? Pancytopenia (HCC) ??? Tonsillitis ??? Acute myeloid leukemia [...] unspecified 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 ([facility]) 09/06/2023 - Chemotherapy cytarabine (Cytosar) 460 mg [...] prevent vision loss. Active Treatment Days for Mike Sarah Velazco (until 12/07/2023) 12/03/2023 ONCOLOGY TREATMENT: IP AML CONSOLIDATION - AGE <60 (HIGH DOSE CYTARABINE)(S[facility]HU HIDAC) Day 5, Cycle 3 (Started) Pre-Medications: ondansetron (Zofran) injection 8 mg, dexAMETHasone (Decadron) injection 8 mg Chemotherapy: cytarabine (Cytosar) 6,700 mg in 0.9% NaCl IV 597 mL infusion Social History Social History Tobacco Use ??? Smoking status: Former Packs/day: 1 Types: Cigarettes Start date: 2004 Quit date: 2010 Years since quittin.2 ??? Smokeless tobacco: Never Substance Use Topics ??? Alcohol use: Yes Comment: occasional Family History Family History Family history unknown: Yes Medications SCHEDULED MEDICATIONS: 0.9% NaCl injection 3 mL, Intracatheter, q8h 0.9% NaCl injection 3 mL, Intracatheter, q8h acetaZOLAMIDE (Diamox) tablet 250 mg, Oral, BID artificial tears ophthalmic solution 1 drop, Each Eye, 6X/day dexAMETHasone (Decadron) 0.1 % ophthalmic suspension 2 drop, Each Eye, 4X/DAY famotidine (Pepcid) tablet 20 mg, Oral, BID heparin lock flush injection 500 Units, Intracatheter, QDAY posaconazole (Noxafil) tablet 300 mg, Oral, QDAY WITH DINNER potassium chloride ER (Klor-Con M) tablet 20 mEq, Oral, QDAY valACYclovir (Valtrex) tablet 500 mg, Oral, BID [COMPLETED] cytarabine (Cytosar) 6,700 mg in 0.9% NaCl IV 597 mL infusion, Intravenous, q12h [COMPLETED] ondansetron (Zofran) injection 8 mg, Intravenous, q12h CONTINUOUS MEDICATIONS: PRN MEDICATIONS: Or 0.9% NaCl infusion rate and volume, Intravenous, Once PRN 0.9% NaCl injection 1-10 mL, Intracatheter, PRN 0.9% NaCl injection 1-10 mL, Intracatheter, PRN magnesium sulfate 2 g in 50 mL bolus, Intravenous, PRN magnesium sulfate 4 g in 100 mL bolus, Intravenous, PRN ondansetron (disintegrating) (Zofran ODT) tablet 8 mg, Oral, BID PRN ondansetron (Zofran) injection 8 mg, Intravenous, BID PRN prochlorperazine (Compazine) injection 5 mg, Intravenous, q4h PRN prochlorperazine (Compazine) tablet 10 mg, Oral, q4h PRN Allergies No Known Allergies OBJECTIVE Physical Exam Vitals: 12/06/23 0420 12/06/23 0444 12/06/23 0718 12/06/23 0755 BP: 111/66 113/73 124/88 Pulse: 77 76 91 Resp: 18 18 Temp: 97.9 ??F (36.6 ??C) 97.9 ??F (36.6 ??C) 97.7 ??F (36.5 ??C) SpO2: 100% 100% 100% Weight: 106.8 kg (235 lb 6.4 oz) Height: Wt Readings from Last 3 Encounters: 12/06/23 106.8 kg (235 lb 6.4 oz) 12/01/23 110.1 kg (242 lb 12.8 oz) 11/28/23 110.6 kg (243 lb 12.8 oz) ECO General: AAOx4, no acute distress, pleasant and cooperative Head: normocephalic, atraumatic Eyes: conjunctivae clear, extraocular muscles intact Mouth/Throat: oropharynx clear with no lesions, moist mucous membranes Neck: no jugular venous distension, no cervical lympadenopathy, good range of motion CV: regular rate and rhythm, no murmurs appreciated Resp: good bilateral air entry, no wheezes, no crackles, Abd: normoactive BS, soft, nontender, non distended Extremities: +1 BLLE , no cyanosis Skin: skin color and turgor normal, no rashes or lesions noted Neuro: moving all extremities well, no focal deficits Laboratory Results Recent Labs Component Name 12/06/23 0847 12/05/23202112/04/23194512/03/232039 WBC 2.7* 2.1* 3.3* 3.3* RBC 2.98* 2.37* 2.44* 2.44* HGB 8.5* 6.8* 7.2* 7.1* HCT 23.4* 19.0* 19.9* 20.3* MCV 78.5* 80.2 81.6 83.2 MCHC 36.3 35.8 36.2 35.0 PLTCOUNT 28* 33* 48* 54* NEUTPCT - 92.7* 89.0* 87.8* LYMPHPCT - 5.8* 6.7* 5.8* NEUTABS - 1.91 2.93 2.85 LYMPHABS - 0.12* 0.22* 0.19* BASOABS - 0.00 0.00 0.01 Recent Labs Component Name 12/05/23202112/04/23194512/03/232039 POTASSIUM 4.1 3.8 4.4 CO2 16* 15* 15* BUN 18 17 17 CREATININE 0.71 0.82 0.82 EGFR >90 >90 >90 GLUCOSE 293* 256* 285* CALCIUM 9.0 8.9 9.1 MAGNESIUM 2.4 2.4 2.5 PHOS 2.7* 2.5* 3.1 ALT 21 27 34 AST 8 10 12 ALKPHOS 68 69 72 Pathology Results Personally reviewed and summarized above in Hematology & Oncology History Radiology Results Personally reviewed and summarized above in Hematology & Oncology History ASSESSMENT Sarah Mckeon is a 38 year old female with favorable risk AML, NPM-1 mutation, presenting for C3 ofHiDAC therapy, today is D6C3. 1. 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 No more IT treatment planned. PLAN: - C3D6 HiDAC consolidation - Continue OI ppx with valtrex, posaconazole. Valacyclovir 500, Posaconazole 300, and Levofloxacin delivered to bedside for discharge today - Continue dexamethasone eye drops for chemical conjunctivitis ppx while whole high dose cytarabine. -O/P follow up with Heme onc Dr [facility] for lab checks and transfusion support 2 times a week 2. 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 3. Vaginal Bleeding - Medroxyprogesterone pill discontinued 2/2 concern for IIH. Confirmed with patient that she is nottaking it. - CTM 4. Elevated ICP - symptom onset during admission, 10/07/23. LP at the time revealed elevated ipening pressure, but meningitis w/u was unrevealing. - Concerns for IIH - Continue acetazolamide 500 BID 5. Mouth lesions/ Jaw pain - Currently asymptomatic - Can use magic mouthwash if needed, assess daily for potential treatment General transfusion parameters (leukoreduced and irradiated blood [...] after completing platelet transfusion to assess response. Thank you for the opportunity to participate in the care of this patient. Hem/Onc consult service will continue to follow closely. Please don't hesitate to contact hem/onc consult fellow via the oil and gas well treatment operator or AMION if any questions or clarifications. Velma Toney MD, PGY-4 [facility]ology[facility]cology Fellow [facility] Associated attestation - Abrahan Rivera MD - 12/06/2023 1:04 PM CDT I have seen and examined the patient with the fellow. I agree with the findings and plan of care asdocumented by the fellow. Date of fellow's note: 12/06/2023 Date of service: 12/06/2023 Abrahan Rivera MD * French Segovia - 12/06/2023 6:47 AM CDT [facility] INTERNAL MEDICINE PROGRESS NOTE Patient: Sarah Mckeon Sex: female Age: [age] year old Date of : 1985 Date of Admission: 12/01/2023 Date: 12/06/2023 LOS: 5 SUBJECTIVE Interval History: Received 1 unit of blood overnight for decreased Hgb 6.8. She is doing well this morning and no acute distress. Denies SIDHU, CP, SOB, palpitations, abd pain, n/v/d. Medically stable for discharge today. 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 She is in remission per bone marrow biopsy in 10/01/23. 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 She received cycle 1 on 10/04 and cycle 2 on 11/03/23. She presents today for cycle three of HiDAC, currently on day 5 (final day). She presented with tachycardia and otherwise VSS. Lab findings were significant for anemia and thrombocytopenia consistent with her history. She has been stable on the floor. Chemotherapy being managed by heme/onc. OBJECTIVE Vital Signs: Vitals: 12/06/23 0341 12/06/23 0405 12/06/23 0420 12/06/23 0444 BP: 110/68 111/66 Pulse: 103 77 Resp: 28 18 18 Temp: 98.5 ??F (36.9 ??C) 97.9 ??F (36.6 ??C) SpO2: 100% 100% Weight: 106.8 kg (235 lb 6.4 oz) Height: Temp Min: 97 ??F (36.1 ??C) Max: 101.1 ??F (38.4 ??C), Pulse Min: 51 Max: 157, Resp Min: 12 Max: 32, BP Min: 92/58 Max: 169/91 Intake & Output: In: 1520 [P.O.:1520] Out: 4550 [Urine:4550] Physical Exam: Physical Exam Constitutional: General: She is not in acute distress. Appearance: She is not ill-appearing. Cardiovascular: Rate and Rhythm: Normal rate and regular rhythm. Heart sounds: No murmur heard. No friction rub. No gallop. Pulmonary: Effort: Pulmonary effort is normal. No respiratory distress. Breath sounds: Normal breath sounds. No stridor. No wheezing or rales. Abdominal: General: Bowel sounds are normal. There is no distension. Palpations: Abdomen is soft. Tenderness: There is no abdominal tenderness. There is no guarding. Musculoskeletal: General: No swelling or tenderness. Normal range of motion. Right lower leg: No edema. Left lower leg: No edema. Skin: General: Skin is warm. Coloration: Skin is not jaundiced. Findings: No bruising. Neurological: General: No focal deficit present. Mental Status: She is alert and oriented to person, place, and time. Mental status is at baseline. Current Medications: Scheduled: ??? 0.9% NaCl 3 mL Intracatheter q8h ??? 0.9% NaCl 3 mL Intracatheter q8h ??? acetaZOLAMIDE 250 mg Oral BID ??? artificial tears 1 drop Each Eye 6X/day ??? dexAMETHasone 2 drop Each Eye 4X/DAY ??? famotidine 20 mg Oral BID ??? heparin lock flush 500 Units Intracatheter QDAY ??? posaconazole 300 mg Oral QDAY WITH DINNER ??? potassium chloride ER 20 mEq Oral QDAY ??? valACYclovir 500 mg Oral BID Continuous: PRN: ??? 0.9% NaCl ??? SALINE LOCK, INSERT AND MAINTAIN AND 0.9% NaCl AND 0.9% NaCl ??? 0.9% NaCl AND 0.9% NaCl ??? magnesium sulfate OR magnesium sulfate ??? ondansetron (disintegrating) ??? ondansetron ??? prochlorperazine ??? prochlorperazine Significant Lab Results: CBC: Recent Labs Component Name 12/05/23202112/04/23194512/03/232039 WBC 2.1* 3.3* 3.3* HGB 6.8* 7.2* 7.1* HCT 19.0* 19.9* 20.3* PLTCOUNT 33* 48* 54* BMP: Recent Labs Component Name 12/05/23202112/04/23194512/03/232039 NA 138 137 138 POTASSIUM 4.1 3.8 4.4 CL 114* 114* 114* CO2 16* 15* 15* BUN 18 17 17 CREATININE 0.71 0.82 0.82 EGFR >90 >90 >90 GLUCOSE 293* 256* 285* CALCIUM 9.0 8.9 9.1 ANIONGAP 8 8 9 Recent Labs Component Name 12/05/23202112/04/23194512/03/232039 PHOS 2.7* 2.5* 3.1 MAGNESIUM 2.4 2.4 2.5 LFTs: Recent Labs Component Name 12/05/23202112/04/23194512/03/232039 AST 8 10 12 ALT 21 27 34 ALKPHOS 68 69 72 Coags: Recent Labs Component Name 09/13/23205109/12/23204509/11/232001 PT 13.1 13.6 14.4 INR 1.0 1.1 1.2 PTT 23.2 20.9* 21.9* ENDO: Recent Labs Component Name 11/28/23 0837 TSH 1.840 Recent Labs Component Name 09/27/23 0048 HGBA1C 7.2* Cardiac: No results for input(s): CK , CKTOTAL , CKMB , CKMBUL , CKMBNGML , TROPONIN , TROPONINI , TROPONINT in the last 14317 hours. ABGs: Recent Labs Component Name 10/09/23 0604 09/25/23 0014 PH 7.36 7.45 PCO2 - 25* PO2 - 94 FIO2 21.0 21.0 UA: Recent Labs Component Name 12/01/23 0852 COLORU Yellow CLARITYU Slt Cloudy* LABSPEC 1.023 KETONES Negative BILIRUBINUR Negative BLOODU 1+* NITRITE Negative LEUKOCYTE 1+* WBCU 21-50* Microbiology: Culture Date/Time Value Ref Range Status 10/06/2023 03:24 PM No growth Final Imaging & Studies: No results found. ASSESSMENT & PLAN Acute myeloid leukemia in remission (HCC) (POA: Unknown) Assessment: Mrs. Mckeon is a 38 year old Female with PMHx of AML in remission (10/01/23) who is currently doing well and tolerating her chemo regimen well (cytoarabine and idarubicin). Her last HiDAC cycles were 10/04, 11/03 and her current cycle started on 12/01. No concerns of TLS or neutropnic feverat this time. She is medically stable and will be ready for discharge pending heme/onc okay. 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 - F/u with heme/onc on 12/07 for CBC at [facility]. - Discussed with patient to monitor for signs of fever. Currently no concerns for neutropenic feveror TLS. - Last chemo cycle in December. #Non-anion gap metabolic acidosis - Likely secondary to urine bicarb excretion due to diamox, bicarb is 15 today - ophto is okay with decreasing dose Plan - Diamox 250mg BID - Follow CMP #Home meds Famotidine 20mg qd: GERD Potassium chloride 20meq qd: hypokalemia #Incidental findings 1.8 cm thyroid nodule seen 11/23 CT, first noted September. TSH normal. - OP thyroid US Chronic/ historic problems: #Vaginal bleeding - Endorses she is currently experiences occasional spotting <1 pad per day Plan: - Provide pads when needed - Depo shot 12/11 outpatient #Elevated ICP #Papilledema - concern for increased ICP given Ct imaging, elevated ICP 31 for IT chemo, meningitis w/u negative, concern for IIH - discharged on acetazolamide with optho f/u, - ophtho called about missed appointment, will f/u in 2 weeks, see plan of care note - acetazolamide 250 mg BID - Patient reports she is not taking acetazolamide at home Plan: - Acetazolamide 250 mg BID - F/u ophtho appt was canceled, need to f/u about scheduling on Thursday 12/07 #Multilayered retinal hemorrhages #Dry eyes - reports she had spots in both eyes, hasn't bothering her since taking eye drops - reports she is taking steroids and lubricant eye drops at home - Per ophto examination, no concern for leukemic retinopathy, saw intraretinal and preretinal hemorrhages likely d/t underlying blood dyscrasias. Had significant improvement 10/13. - Could be a/w thrombocytopenia leading to hemorrhage. Plan: - Needs f/u ophtho clinic - PFAT 6 times daily, dexamethasone eye drops #Mouth lesions, jaw/pain (resolved) - last week, resolved with warm salt rinse, now asx. - had CT face 11/23 with no significant findings #History of SAH - incidental findings on SAH on Ct head during September admission - NSGY f/u on 11/[address] head showed interval resolution of small SAH Plan - CTM Code: FULL Diet: Regular Electrolytes: Replete PRN PPx: SCD, hold DVT ppx platelet <50k Access: [facility] Dispo: Home The above assessment and plan will be discussed with the attending. This note is not final until attested by attending physician. French Segovia MS4 [facility] 12/06/2023 6:47 AM * Yin Saunders RN - 12/06/2023 5:13 AM CDT Problem: Symptom management Goal: Symptoms of nausea will be minimized Outcome: Progressing Goal: Symptoms of stomatitis will be minimized Outcome: Progressing Problem: Protective Precautions Goal: Patient will remain free of Nosocomial Infections Outcome: Progressing Problem: Bleeding Precautions Goal: Precautionary measures taken to prevent bleeding Outcome: Progressing Problem: Pain/Discomfort Goal: Patient verbalizes acceptable level of pain relief and ability to engage in desired activity. Outcome: Progressing * Gaurav Moyer - 12/05/2023 1:10 PM CDT Music Therapy Progress Note Start Time: 1145 End Time: 1215 Music Therapy Goals: Increase relaxation and Increase meaningful social interaction Intervention Provided: Provide familiar / significant music, Utilized iso- principle and Provide opportunities for social interaction Therapy Type: Individual Therapy Patient Response: Appropriate Affect: Mood, appropriate Treatment Modality: Music Therapy Music Therapist Gaurav Moyer visited patient in [facility] room. Patient was observed sitting up in chair, alert and oriented. During interventions, Patient sang, smiled, madeeye contact, and moved in time with the music. Patient engaged in emotional processing after each intervention. At conclusion of session, no nonverbal indicators of distress observed. ERLINDA Philip, MT-BC 12/05/2023 1:10 PM * Ronak Newman DO - 12/05/2023 11:41 AM CDT Images from the original note were not included. HEMATOLOGY/ONCOLOGY INPATIENT PROGRESS NOTE Name: Sarah Mckeon Age: [age] year old Date of : 1985 Date of Service: 12/05/2023 Reason for Consult: AML HEMATOLOGY & ONCOLOGY HISTORY Principal Diagnosis: AML Current Therapy: C3D5 HiDAC consolidation SUBJECTIVE History of Present Illness Chief Complaint: Scheduled admission for C3 HiDAC History of Present Illness: Sarah Mckeon is a 38 year old female with favorable risk AML, NPM-1 mutation in complete remissionpresenting for C3 of HiDAC consolidation therapy. Originally in August of 2023 was admitted to [facility] c/o flu like symptoms and ultimately had marrow biopsy revealing 78% blasts on marrow and flow cytometry confirmed NPM1 mutation. Was sent to [facility] for AML. Completed 7 [...] without any side effects or transfusion requirements. Interval History: Tolerated D4 treatment well, has no pertinent complaints today, just stating that she is tired. Remains acitve with ambulation, adequate UOP, good caloric intake. Today no new complaints. Review of Systems: As noted in HPI. All other systems reviewed and negative. Past Medical & Surgical History Patient Active Problem List Diagnosis ??? Hypernatremia ??? Hypophosphatemia ??? Anemia ??? Vaginal bleeding ??? IIH (idiopathic intracranial hypertension) ??? Acute hypoxic respiratory failure (HCC) ??? Pulmonary edema (HCC) ??? Pancytopenia (HCC) ??? Tonsillitis ??? Acute myeloid leukemia [...] unspecified 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 ([facility]) 09/06/2023 - Chemotherapy cytarabine (Cytosar) 460 mg [...] Active Treatment Days for Sarah Mckeon (until 12/06/2023) 12/03/2023 ONCOLOGY TREATMENT: IP AML CONSOLIDATION - AGE <60 (HIGH DOSE CYTARABINE)(SANDHU HIDAC) Day 5, Cycle 3 (Started) Pre-Medications: ondansetron (Zofran) injection 8 mg, dexAMETHasone (Decadron) injection 8 mg Chemotherapy: cytarabine (Cytosar) 6,700 mg in 0.9% NaCl IV 597 mL infusion Social History Social History Tobacco Use ??? Smoking status: Former Packs/day: 1 Types: Cigarettes Start date: 2004 Quit date: 2010 Years since quittin.2 ??? Smokeless tobacco: Never Substance Use Topics ??? Alcohol use: Yes Comment: occasional Family History Family History Family history unknown: Yes Medications SCHEDULED MEDICATIONS: 0.9% NaCl injection 3 mL, Intracatheter, q8h acetaZOLAMIDE (Diamox) tablet 250 mg, Oral, BID artificial tears ophthalmic solution 1 drop, Each Eye, 6X/day cytarabine (Cytosar) 6,700 mg in 0.9% NaCl IV 597 mL infusion, Intravenous, q12h dexAMETHasone (Decadron) 0.1 % ophthalmic suspension 2 drop, Each Eye, 4X/DAY famotidine (Pepcid) tablet 20 mg, Oral, BID heparin lock flush injection 500 Units, Intracatheter, QDAY ondansetron (Zofran) injection 8 mg, Intravenous, q12h posaconazole (Noxafil) tablet 300 mg, Oral, QDAY WITH DINNER potassium chloride ER (Klor-Con M) tablet 20 mEq, Oral, QDAY valACYclovir (Valtrex) tablet 500 mg, Oral, BID [COMPLETED] dexAMETHasone (Decadron) injection 8 mg, Intravenous, Once CONTINUOUS MEDICATIONS: PRN MEDICATIONS: Or 0.9% NaCl injection 1-10 mL, Intracatheter, PRN magnesium sulfate 2 g in 50 mL bolus, Intravenous, PRN magnesium sulfate 4 g in 100 mL bolus, Intravenous, PRN ondansetron (disintegrating) (Zofran ODT) tablet 8 mg, Oral, BID PRN ondansetron (Zofran) injection 8 mg, Intravenous, BID PRN prochlorperazine (Compazine) injection 5 mg, Intravenous, q4h PRN prochlorperazine (Compazine) tablet 10 mg, Oral, q4h PRN Allergies No Known Allergies OBJECTIVE Physical Exam Vitals: 12/04/23 0838 12/04/23 1759 12/05/23 0039 12/05/23 0804 BP: 114/76 130/86 107/69 Pulse: 99 67 93 Resp: 16 16 18 Temp: 97.7 ??F (36.5 ??C) 97.7 ??F (36.5 ??C) 98.1 ??F (36.7 ??C) SpO2: 99% 100% 100% Weight: Height: Wt Readings from Last 3 Encounters: 12/02/23 110.6 kg (243 lb 12.8 oz) 12/01/23 110.1 kg (242 lb 12.8 oz) 11/28/23 110.6 kg (243 lb 12.8 oz) ECO General: AAOx4, no acute distress, pleasant and cooperative Head: normocephalic, atraumatic Eyes: conjunctivae clear, extraocular muscles intact Mouth/Throat: oropharynx clear with no lesions, moist mucous membranes Neck: no jugular venous distension, no cervical lympadenopathy, good range of motion CV: regular rate and rhythm, no murmurs appreciated Resp: good bilateral air entry, no wheezes, no crackles, Abd: normoactive BS, soft, nontender, non distended Extremities: +1 BLLE , no cyanosis Skin: skin color and turgor normal, no rashes or lesions noted Neuro: moving all extremities well, no focal deficits Laboratory Results Recent Labs Component Name 12/04/23194512/03/23203912/02/232002 WBC 3.3* 3.3* 6.1 RBC 2.44* 2.44* 2.54* HGB 7.2* 7.1* 7.4* HCT 19.9* 20.3* 21.1* MCV 81.6 83.2 83.1 MCHC 36.2 35.0 35.1 PLTCOUNT 48* 54* 64* NEUTPCT 89.0* 87.8* 72.9 LYMPHPCT 6.7* 5.8* 6.5* NEUTABS 2.93 2.85 4.47 LYMPHABS 0.22* 0.19* 0.40* BASOABS 0.00 0.01 0.00 Recent Labs Component Name 12/04/23194512/03/23203912/02/232002 POTASSIUM 3.8 4.4 4.1 CO2 15* 15* 19* BUN 17 17 11 CREATININE 0.82 0.82 0.73 EGFR >90 >90 >90 GLUCOSE 256* 285* 186* CALCIUM 8.9 9.1 9.8 MAGNESIUM 2.4 2.5 2.4 PHOS 2.5* 3.1 3.4 ALT 27 34 44 AST 10 12 24 ALKPHOS 69 72 73 Pathology Results Personally reviewed and summarized above in Hematology & Oncology History Radiology Results Personally reviewed and summarized above in Hematology & Oncology History ASSESSMENT Sarah Mckeon is a 38 year old female with 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 1. 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 No more IT treatment planned. PLAN: - Continue with C3,D5 HiDAC consolidation ; last cytarabine dose tonight at 6 PM. - Continue OI ppx with valtrex, posaconazole. - If neutropenic (ANC <500), please start levofloxacin ppx - Please order ppx medications today to be ready for anticipated discharge tomorrow morning. Valacyclovir 500, Posaconazole 300, and Levofloxacin. - Ride home tomorrow morning (12/06/23) - Continue dexamethasone eye drops for chemical conjunctivitis ppx while whole high dose cytarabine. 2. 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 3. Vaginal Bleeding - Medroxyprogesterone pill discontinued 2/2 concern for IIH. Confirmed with patient that she is nottaking it. - CTM 4. Elevated ICP - symptom onset during admission, 10/07/23. LP at the time revealed elevated ipening pressure, but meningitis w/u was unrevealing. - Concerns for IIH - Continue acetazolamide 500 BID 5. Mouth lesions/ Jaw pain - Currently asymptomatic - Can use magic mouthwash if needed, assess daily for potential treatment General transfusion parameters (leukoreduced and irradiated blood [...] after completing platelet transfusion to assess response. Thank you for the opportunity to participate in the care of this patient. Hem/Onc consult service will continue to follow closely. Please don't hesitate to contact hem/onc consult fellow via the oil and gas well treatment operator or AMION if any questions or clarifications. Associated attestation - Abrahan Rivera MD - 12/05/2023 5:21 PM CDT I have seen and examined the patient with the resident. I agree with the findings and plan of care as documented by the resident. Date of resident's note: 12/05/2023 Date of service: 12/05/2023 Abrahan Rivera MD * French Segovia - 12/05/2023 8:57 AM CDT [facility] INTERNAL MEDICINE PROGRESS NOTE Patient: Sarah Mckeon Sex: female Age: [age] year old Date of : 1985 Date of Admission: 12/01/2023 Date: 12/05/2023 LOS: 4 SUBJECTIVE Interval History: NAEON. She is doing well this morning and no acute distress. Denies SIDHU, CP, SOB, palpitations, abd pain, n/v/d. Her lubna painting is now completed. Medically stable for discharge tomorrow. 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 She is in remission per bone marrow biopsy in 10/01/23. 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 She received cycle 1 on 10/04 and cycle 2 on 11/03/23.??She presents today for cycle three of HiDAC, currently on day 5 (final day). ?? She presented??with tachycardia and otherwise VSS. Lab findings were significant for anemia and thrombocytopenia consistent with her history. She has been stable on the floor. Chemotherapy being managed by heme/onc. OBJECTIVE Vital Signs: Vitals: 12/04/23 0838 12/04/23 1759 12/05/23 0039 12/05/23 0804 BP: 114/76 130/86 107/69 Pulse: 99 67 93 Resp: 16 16 18 Temp: 97.7 ??F (36.5 ??C) 97.7 ??F (36.5 ??C) 98.1 ??F (36.7 ??C) SpO2: 99% 100% 100% Weight: Height: Temp Min: 97 ??F (36.1 ??C) Max: 101.1 ??F (38.4 ??C), Pulse Min: 51 Max: 157, Resp Min: 12 Max: 32, BP Min: 92/58 Max: 169/91 Intake & Output: In: 2127.8 [P.O.:1520; I.V.:607.8] Out: 4600 [Urine:4600] Physical Exam: Physical Exam Constitutional: General: She is not in acute distress. Appearance: She is not ill-appearing. Cardiovascular: Rate and Rhythm: Normal rate and regular rhythm. Heart sounds: No murmur heard. No friction rub. No gallop. Pulmonary: Effort: Pulmonary effort is normal. No respiratory distress. Breath sounds: Normal breath sounds. No stridor. No wheezing or rales. Abdominal: General: Bowel sounds are normal. There is no distension. Palpations: Abdomen is soft. Tenderness: There is no abdominal tenderness. There is no guarding. Musculoskeletal: General: No swelling or tenderness. Normal range of motion. Right lower leg: No edema. Left lower leg: No edema. Skin: General: Skin is warm. Coloration: Skin is not jaundiced. Findings: No bruising. Neurological: General: No focal deficit present. Mental Status: She is alert and oriented to person, place, and time. Mental status is at baseline. Current Medications: Scheduled: ??? 0.9% NaCl 3 mL Intracatheter q8h ??? acetaZOLAMIDE 250 mg Oral BID ??? artificial tears 1 drop Each Eye 6X/day ??? cytarabine 3,000 mg/m2 (Treatment Plan Recorded) Intravenous q12h ??? dexAMETHasone 2 drop Each Eye 4X/DAY ??? famotidine 20 mg Oral BID ??? heparin 7,500 Units Subcutaneous q8h ??? heparin lock flush 500 Units Intracatheter QDAY ??? ondansetron 8 mg Intravenous q12h ??? posaconazole 300 mg Oral QDAY WITH DINNER ??? potassium chloride ER 20 mEq Oral QDAY ??? valACYclovir 500 mg Oral BID Continuous: PRN: ??? 0.9% NaCl AND 0.9% NaCl ??? magnesium sulfate OR magnesium sulfate ??? ondansetron (disintegrating) ??? ondansetron ??? prochlorperazine ??? prochlorperazine Significant Lab Results: CBC: Recent Labs Component Name 12/04/23194512/03/23203912/02/232002 WBC 3.3* 3.3* 6.1 HGB 7.2* 7.1* 7.4* HCT 19.9* 20.3* 21.1* PLTCOUNT 48* 54* 64* BMP: Recent Labs Component Name 12/04/23194512/03/23203912/02/232002 NA 137 138 139 POTASSIUM 3.8 4.4 4.1 CL 114* 114* 112* CO2 15* 15* 19* BUN 17 17 11 CREATININE 0.82 0.82 0.73 EGFR >90 >90 >90 GLUCOSE 256* 285* 186* CALCIUM 8.9 9.1 9.8 ANIONGAP 8 9 8 Recent Labs Component Name 12/04/23194512/03/23203912/02/232002 PHOS 2.5* 3.1 3.4 MAGNESIUM 2.4 2.5 2.4 LFTs: Recent Labs Component Name 12/04/23194512/03/23203912/02/232002 AST 10 12 24 ALT 27 34 44 ALKPHOS 69 72 73 Coags: Recent Labs Component Name 09/13/23205109/12/23204509/11/232001 PT 13.1 13.6 14.4 INR 1.0 1.1 1.2 PTT 23.2 20.9* 21.9* ENDO: Recent Labs Component Name 11/28/23 0837 TSH 1.840 Recent Labs Component Name 09/27/23 0048 HGBA1C 7.2* Cardiac: No results for input(s): CK , CKTOTAL , CKMB , CKMBUL , CKMBNGML , TROPONIN , TROPONINI , TROPONINT in the last 51278 hours. ABGs: Recent Labs Component Name 10/09/23 0604 09/25/23 0014 PH 7.36 7.45 PCO2 - 25* PO2 - 94 FIO2 21.0 21.0 UA: Recent Labs Component Name 12/01/23 0852 COLORU Yellow CLARITYU Slt Cloudy* LABSPEC 1.023 KETONES Negative BILIRUBINUR Negative BLOODU 1+* NITRITE Negative LEUKOCYTE 1+* WBCU 21-50* Microbiology: Culture Date/Time Value Ref Range Status 10/06/2023 03:24 PM No growth Final Imaging & Studies: No results found. ASSESSMENT & PLAN Acute myeloid leukemia in remission (HCC) (POA: Unknown) Assessment: Mrs. Mckeon is a 38 year old Female with PMHx of AML in remission (10/01/23) who is currently doing well and tolerating her chemo regimen well (cytoarabine and idarubicin). Her last HiDAC cycles were 10/04, 11/03 and her current cycle started on 12/01. She is medically stable and will be ready for discharge pending heme/onc okay. ?? 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 Patient has a ride tomorrow upon discharge. ?? #Non-anion gap metabolic acidosis - Likely secondary to urine bicarb excretion due to diamox, bicarb is 15 today - ophto is okay with decreasing dose Plan - Diamox 250mg BID - Follow CMP ?? #Home meds Famotidine 20mg qd: GERD Potassium chloride 20meq qd: hypokalemia ?? #Incidental findings 1.8 cm thyroid nodule seen 11/23 CT, first noted September. TSH normal. - OP thyroid US ?? Chronic/ historic??problems: #Vaginal bleeding -??endorses she is currently experiences??occasional spotting??<1 pad per day Plan: - provide pads??when needed - Depo shot 12/11??outpatient ?? #Elevated ICP #Papilledema - concern for increased ICP given Ct imaging, elevated ICP 31 for IT chemo, meningitis w/u negative, concern for IIH - discharged on acetazolamide with optho f/u, - ophtho called about missed appointment, will f/u in 2 weeks, see plan of care note ?- acetazolamide 250 mg BID - Patient reports she is not taking acetazolamide at home Plan: - Acetazolamide 250 mg BID - F/u optho in 2 weeks ?? #Multilayered retinal hemorrhages #Dry eyes -??reports she had??spots in both eyes, hasn't bothering her??since taking eye drops - reports she is taking steroids and lubricant eye drops at home - Per ophto examination, no concern for leukemic retinopathy, saw intraretinal and preretinal hemorrhages likely d/t underlying blood dyscrasias. Had significant improvement 10/13. - ophtho called about missed appointment, will f/u in 2 weeks, see plan of care note Plan: - F/u optho in 2 weeks - PFAT 6 times daily, dexamethasone eye drops ?? #Mouth lesions, jaw/pain??(resolved) - last week, resolved with warm salt rinse - had CT face 11/23 with no significant findings ?? #History of SAH - incidental findings on SAH on Ct head during September admission - NSGY f/u on 11/[address] head showed interval resolution of small SAH Plan - CTM ?? Code: FULL Diet: Regular Electrolytes: Replete PRN PPx: SCD, hold DVT ppx platelet <50k Access: Central RIJ Dispo: Home The above assessment and plan will be discussed with the attending. This note is not final until attested by attending physician. French Reddy Segovia MS4 [facility] 12/05/2023 8:58 AM Associated attestation - Susana Perez MD - 12/05/2023 2:48 PM CDT I have verified the documentation of the medical student including all history, exam, and medical decision-making details. I have personally performed a physical exam and have personally reviewed thedata to support my medical decision-making as outlined in the medical student???s note, and I arrive independently at the same conclusion. Date of Service: 12/05/2023 Susana Perez MD * Conor Valdes - 12/04/2023 1:38 PM CDT [facility] INTERNAL MEDICINE PROGRESS NOTE Patient: Sarah Mckeon Sex: female Age: [age] year old Date of : 1985 Date of Admission: 12/01/2023 Date: 12/04/2023 LOS: 3 SUBJECTIVE Interval History: No acute events overnight. She reports she is feeling well. Denies chest pain, SOB, abdominal pain,vomiting, weakness, headaches, or any complaints. She endorsed some slight nausea yesterday which resolved by drinking sprite. She has made excellent progress on her ulbna painting. 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 She is in remission per bone marrow biopsy in 10/01/23. 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 She received cycle 1 on 10/04 and cycle 2 on 11/03/23. She presents today for cycle three of HiDAC, currently on day 2. ?? She presented with tachycardia and otherwise VSS. Lab findings were significant for anemia and thrombocytopenia consistent with her history. She has been stable on the floor. Chemotherapy being managed by heme/onc. OBJECTIVE Vital Signs: Vitals: 12/03/23 1201 12/03/23 1633 12/04/23 0020 12/04/23 0838 BP: 129/89 124/87 146/74 114/76 Pulse: 80 100 83 99 Resp: 18 18 18 16 Temp: 98.2 ??F (36.8 ??C) 97.8 ??F (36.6 ??C) 98.1 ??F (36.7 ??C) 97.7 ??F (36.5 ??C) SpO2: 99% 100% 100% 99% Weight: Height: Temp Min: 97 ??F (36.1 ??C) Max: 101.1 ??F (38.4 ??C), Pulse Min: 51 Max: 157, Resp Min: 12 Max: 32, BP Min: 92/58 Max: 169/91 Intake & Output: In: 2455 [P.O.:1250; I.V.:1205] Out: 5950 [Urine:5950] Physical Exam: General: Alert and oriented to person, place, time and situation, no acute distress Neck: No JVD or cartoid bruit. Trachea midline. Heart: RRR, Normal S1 and S2. No murmurs appreciated. Chest: Normal breath sounds, no wheezes or rhonchi Abdomen: Soft, non-tender, non-distended, bowel sounds present Extremities: No lower extremity edema, 2+ distal peripheral pulses Neuro: No focal deficits noted Intake/Output Summary (Last 24 hours) at 12/04/2023 1338 Last data filed at 12/04/2023 1049 Gross per 24 hour Intake 1097.76 ml Output 2200 ml Net -1102.24 ml Current Medications: Scheduled: ??? 0.9% NaCl 3 mL Intracatheter q8h ??? acetaZOLAMIDE 500 mg Oral BID ??? artificial tears 1 drop Each Eye 6X/day ??? [START ON 12/05/2023] cytarabine 3,000 mg/m2 (Treatment Plan Recorded) Intravenous q12h ??? dexAMETHasone 2 drop Each Eye 4X/DAY ??? [START ON 12/05/2023] dexAMETHasone 8 mg Intravenous Once ??? famotidine 20 mg Oral BID ??? heparin 7,500 Units Subcutaneous q8h ??? heparin lock flush 500 Units Intracatheter QDAY ??? [START ON 12/05/2023] ondansetron 8 mg Intravenous q12h ??? posaconazole 300 mg Oral QDAY WITH DINNER ??? potassium chloride ER 20 mEq Oral QDAY ??? valACYclovir 500 mg Oral BID Continuous: PRN: ??? 0.9% NaCl AND 0.9% NaCl ??? magnesium sulfate OR magnesium sulfate ??? ondansetron (disintegrating) ??? ondansetron ??? prochlorperazine ??? prochlorperazine Significant Lab Results: CBC: Recent Labs Component Name 12/03/23203912/02/23200212/01/23 0852 WBC 3.3* 6.1 4.9 HGB 7.1* 7.4* 7.7* HCT 20.3* 21.1* 21.9* MCV 83.2 83.1 82.0 Coagulation Panel: Recent Labs Component Name 09/13/23205109/12/23204509/11/232001 PT 13.1 13.6 14.4 INR 1.0 1.1 1.2 PTT 23.2 20.9* 21.9* BMP: Recent Labs Component Name 12/03/23203912/02/23200212/01/23 0852 NA 138 139 141 POTASSIUM 4.4 4.1 3.5 CL 114* 112* 111* CO2 15* 19* 21* BUN 17 11 8 CREATININE 0.82 0.73 0.77 CALCIUM 9.1 9.8 9.3 Recent Labs Component Name 12/03/23203912/02/23200212/01/23 0852 MAGNESIUM 2.5 2.4 1.9 Recent Labs Component Name 12/03/23203912/02/23200212/01/23 0852 PHOS 3.1 3.4 2.7* Hepatic Panel: Recent Labs Component Name 12/03/23203912/02/23200212/01/23 0852 AST 09 07 24 ALT 34 44 44 ALKPHOS 72 73 81 TBILI 0.4 0.5 0.5 ALB 3.5 3.6 3.4 ABG: Recent Labs Component Name 10/09/23 0604 09/25/23 0014 PH 7.36 7.45 PCO2 - 25* PO2 - 94 Amylase/Lipase: Invalid input(s): AMYL , LIPA Thyroid Studies: Recent Labs Component Name 11/28/23 0837 TSH 1.840 Cardiac Enzymes: No results for input(s): CKTOTAL , CKMB , TROPONINI in the last 03432 hours. Invalid input(s): CKMBINDEX Lipid Panel: No results for input(s): LDLCALC , HDL in the last 85513 hours. Microbiology: Microbiology Results (Displays last 21 days for this encounter ONLY) Procedure Component Value - Date/Time CULTURE URINE [[id number]] Collected: 12/01/23 0852 Lab Status: Final result Specimen: Urine Clean Catch Updated: 12/02/232306 Culture Urine 50,000-100,000 CFU/mL urogenital neris Imaging & Studies: No results found. ASSESSMENT & PLAN Sarah Mckeon is a 38 year old female with AML in remission (10/01/23). She is s/p 7+3 (cytoarabine and idarubicin) on 09/06 and is currently receiving HiDAC s/p 2 cycles (10/04, 11/03) due to concern for PULP DRIER FIRER involvement. She presents on 12/01 for cycle 3 of HiDAC. Heme/onc is currenty managing her chemo. She is doing well currently. ?? 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 - s/p 7+3 and 2 rounds HiDAC, in remission 10/01 - 12/03: C3D4 HiDAC - last day should be Friday, anticipate d/c Friday - doing well, not requiring interventions Plan - Heme/onc recs - Prophylaxis - Valtrex 500mg qd, Noxafil 300mg with dinner - if ANC <500 restart levaquin - Nausea - Zofran and prochlorperazine PRN - Replete magnesium PRN - Transfuse pt >20k, >30k if vaginal bleeding - Transfuse pRBC for Hbg < 7 #Non-anion gap metabolic acidosis - likely secondary to urine bicarb excretion due to diamox, bicarb is 15 today - ophto is okay with decreasing dose Plan - decrease to 250mg BID and f/u CMP ?? #Home meds Famotidine 20mg qd: GERD Potassium chloride 20meq qd: hypokalemia ?? #Incidental findings 1.8 cm thyroid nodule seen 11/23 CT, first noted September. TSH normal. - OP thyroid US Chronic/ historic problems: #Vaginal bleeding - endorses she is currently experiences occasional spotting <1 pad per day Plan: - provide pads when needed - Depo shot 12/11 outpatient ?? #Elevated ICP #Papilledema - concern for increased ICP given Ct imaging, elevated ICP 31 for IT chemo, meningitis w/u negative, concern for IIH - discharged on acetazolamide with optho f/u, - ophtho called about missed appointment, will f/u in 2 weeks, see plan of care note - acetazolamide 500mg BID - patient reports she is not taking acetazolamide at home Plan: - acetazolamide 500mg BID - f/u optho in 2 weeks ?? #Multilayered retinal hemorrhages #Dry eyes - reports she had spots in both eyes, hasn't bothering her since taking eye drops - reports she is taking steroids and lubricant eye drops at home - Per ophto examination, no concern for leukemic retinopathy, saw intraretinal and preretinal hemorrhages likely d/t underlying blood dyscrasias. Had significant improvement 10/13. - ophtho called about missed appointment, will f/u in 2 weeks, see plan of care note Plan: - f/u optho in 2 weeks - PFAT 6 times daily, dexamethasone eye drops ?? #Mouth lesions, jaw/pain (resolved) - last week, resolved with warm salt rinse - had CT face 11/23 with no significant findings ?? #History of SAH - incidental findings on SAH on Ct head during September admission - NSGY f/u on 11/[address] head showed interval resolution of small SAH Plan - CTM Code: FULL Diet: Regular Electrolytes: Replete PRN PPx: SCD Access: Central RIJ Dispo: likely home pending chemo The above assessment and plan will be discussed with the attending. This note is not final until attested by attending physician. Conor Valdes MS4 [facility] 12/04/2023 1:38 PM Associated attestation - Susana Perez MD - 12/04/2023 2:18 PM CDT I have verified the documentation of the medical student including all history, exam, and medical decision-making details. I have personally performed a physical exam and have personally reviewed thedata to support my medical decision-making as outlined in the medical student???s note, and I arrive independently at the same conclusion. Date of Service: 12/04/2023 Susana Perez MD * Gaurav Moyer - 12/04/2023 11:50 AM CDT Music Therapy Progress Note Start Time: 5 End Time: 1110 Music Therapy Goals: Increase relaxation, Increase appropriate sensory stimulation and Increase meaningful social interaction Intervention Provided: Provide familiar / significant music, Utilized iso- principle and Provide opportunities for social interaction Therapy Type: Individual Therapy Patient Response: Appropriate Affect: Mood, appropriate Treatment Modality: Music Therapy Music Therapist Gaurav Moyer visited patient in [facility] room. Patient was observed sitting up in chair, alert and oriented. During interventions, Patient sang, made eye contact, smiled, and moved in time with the music. At conclusion of session, no nonverbal indicators of distress observed. Gaurav Moyer, [facility], [place] 12/04/2023 11:50 AM * Ronak Newman DO - 12/04/2023 8:28 AM CDT Images from the original note were not included. HEMATOLOGY/ONCOLOGY INPATIENT PROGRESS NOTE Name: Sarah Mckeon Age: [age] year old Date of : 1985 Date of Service: 12/04/2023 Reason for Consult: AML HEMATOLOGY & ONCOLOGY HISTORY Principal Diagnosis: AML Current Therapy: C3D3 HiDAC consolidation SUBJECTIVE History of Present Illness Chief Complaint: Scheduled admission for C3 HiDAC History of Present Illness: Sarah Mckeon is a 38 year old female with favorable risk AML, NPM-1 mutation in complete remissionpresenting for C3 of HiDAC consolidation therapy. Originally in August of 2023 was admitted to [facility] c/o flu like symptoms and ultimately had marrow biopsy revealing 78% blasts on marrow and flow cytometry confirmed NPM1 mutation. Was sent to [facility] for AML. Completed 7 [...] diarrhea, dizziness, lightheadedness, SOB, cough, or LUTS. Interval History: No acute events overnight, asymptomatic, hemodynamically stable, tolerated D3 treatment well. Todayno new complaints. Review of Systems: As noted in HPI. All other systems reviewed and negative. Past Medical & Surgical History Patient Active Problem List Diagnosis ??? Hypernatremia ??? Hypophosphatemia ??? Anemia ??? Vaginal bleeding ??? IIH (idiopathic intracranial hypertension) ??? Acute hypoxic respiratory failure (HCC) ??? Pulmonary edema (HCC) ??? Pancytopenia (HCC) ??? Tonsillitis ??? Acute myeloid leukemia [...] unspecified 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 ([facility]) 09/06/2023 - Chemotherapy cytarabine (Cytosar) 460 mg [...] Active Treatment Days for Sarah Mckeon (until 12/05/2023) 12/03/2023 ONCOLOGY TREATMENT: IP AML CONSOLIDATION - AGE <60 (HIGH DOSE CYTARABINE)([facility] HIDAC) Day 5, Cycle 3 (Started) Pre-Medications: ondansetron (Zofran) injection 8 mg, dexAMETHasone (Decadron) injection 8 mg Chemotherapy: cytarabine (Cytosar) 6,700 mg in 0.9% NaCl IV 597 mL infusion Social History Social History Tobacco Use ??? Smoking status: Former Packs/day: 1 Types: Cigarettes Start date: 2004 Quit date: 2010 Years since quittin.2 ??? Smokeless tobacco: Never Substance Use Topics ??? Alcohol use: Yes Comment: occasional Family History Family History Family history unknown: Yes Medications SCHEDULED MEDICATIONS: 0.9% NaCl injection 3 mL, Intracatheter, q8h acetaZOLAMIDE (Diamox) tablet 500 mg, Oral, BID artificial tears ophthalmic solution 1 drop, Each Eye, 6X/day dexAMETHasone (Decadron) 0.1 % ophthalmic suspension 2 drop, Each Eye, 4X/DAY famotidine (Pepcid) tablet 20 mg, Oral, BID heparin injection 7,500 Units, Subcutaneous, q8h heparin lock flush injection 500 Units, Intracatheter, QDAY posaconazole (Noxafil) tablet 300 mg, Oral, QDAY WITH DINNER potassium chloride ER (Klor-Con M) tablet 20 mEq, Oral, QDAY valACYclovir (Valtrex) tablet 500 mg, Oral, BID [COMPLETED] cytarabine (Cytosar) 6,700 mg in 0.9% NaCl IV 597 mL infusion, Intravenous, q12h [COMPLETED] dexAMETHasone (Decadron) injection 8 mg, Intravenous, Once [COMPLETED] ondansetron (Zofran) injection 8 mg, Intravenous, q12h [START ON 12/05/2023] cytarabine (Cytosar) 6,700 mg in 0.9% NaCl IV 597 mL infusion, Intravenous, q12h [START ON 12/05/2023] dexAMETHasone (Decadron) injection 8 mg, Intravenous, Once [START ON 12/05/2023] ondansetron (Zofran) injection 8 mg, Intravenous, q12h CONTINUOUS MEDICATIONS: PRN MEDICATIONS: Or 0.9% NaCl injection 1-10 mL, Intracatheter, PRN magnesium sulfate 2 g in 50 mL bolus, Intravenous, PRN magnesium sulfate 4 g in 100 mL bolus, Intravenous, PRN ondansetron (disintegrating) (Zofran ODT) tablet 8 mg, Oral, BID PRN ondansetron (Zofran) injection 8 mg, Intravenous, BID PRN prochlorperazine (Compazine) injection 5 mg, Intravenous, q4h PRN prochlorperazine (Compazine) tablet 10 mg, Oral, q4h PRN Allergies No Known Allergies OBJECTIVE Physical Exam Vitals: 12/03/23 1144 12/03/23 1201 12/03/23 1633 12/04/23 0020 BP: 129/89 124/87 146/74 Pulse: 80 100 83 Resp: Temp: 98.2 ??F (36.8 ??C) 97.8 ??F (36.6 ??C) 98.1 ??F (36.7 ??C) SpO2: 99% 100% 100% Weight: Height: 1.575 m (5' 2.01 ) Wt Readings from Last 3 Encounters: 12/02/23 110.6 kg (243 lb 12.8 oz) 12/01/23 110.1 kg (242 lb 12.8 oz) 11/28/23 110.6 kg (243 lb 12.8 oz) ECO General: AAOx4, no acute distress, pleasant and cooperative Head: normocephalic, atraumatic Eyes: conjunctivae clear, extraocular muscles intact Mouth/Throat: oropharynx clear with no lesions, moist mucous membranes Neck: no jugular venous distension, no cervical lympadenopathy, good range of motion CV: regular rate and rhythm, no murmurs appreciated Resp: good bilateral air entry, no wheezes, no crackles, Abd: normoactive BS, soft, nontender, non distended Extremities: +1 BLLE , no cyanosis Skin: skin color and turgor normal, no rashes or lesions noted Neuro: moving all extremities well, no focal deficits Laboratory Results Recent Labs Component Name 12/03/23203912/02/23200212/01/23 0852 WBC 3.3* 6.1 4.9 RBC 2.44* 2.54* 2.67* HGB 7.1* 7.4* 7.7* HCT 20.3* 21.1* 21.9* MCV 83.2 83.1 82.0 MCHC 35.0 35.1 35.2 PLTCOUNT 54* 64* 61* NEUTPCT 87.8* 72.9 52.9 LYMPHPCT 5.8* 6.5* 17.2 NEUTABS 2.85 4.47 2.58 LYMPHABS 0.19* 0.40* 0.84* BASOABS 0.01 0.00 0.00 Recent Labs Component Name 12/03/23203912/02/23200212/01/23 0852 POTASSIUM 4.4 4.1 3.5 CO2 15* 19* 21* BUN 17 11 8 CREATININE 0.82 0.73 0.77 EGFR >90 >90 >90 GLUCOSE 285* 186* 158* CALCIUM 9.1 9.8 9.3 MAGNESIUM 2.5 2.4 1.9 PHOS 3.1 3.4 2.7* ALT 34 44 44 AST 12 24 24 ALKPHOS 72 73 81 Pathology Results Personally reviewed and summarized above in Hematology & Oncology History Radiology Results Personally reviewed and summarized above in Hematology & Oncology History ASSESSMENT Sarah Mckeon is a 38 year old female with 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 1. 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 No more IT treatment planned. PLAN: - Continue with C3,D4 HiDAC consolidation - Continue OI ppx with valtrex, posaconazole. - If neutropenic (ANC <500), please start levofloxacin ppx - Continue dexamethasone eye drops for chemical conjunctivitis ppx while whole high dose cytarabine. 2. 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 3. Vaginal Bleeding - Medroxyprogesterone pill discontinued 2/2 concern for IIH. Confirmed with patient that she is nottaking it. - CTM 4. Elevated ICP - symptom onset during admission, 10/07/23. LP at the time revealed elevated ipening pressure, but meningitis w/u was unrevealing. - Concerns for IIH - Continue acetazolamide 500 BID 5. Mouth lesions/ Jaw pain - Currently asymptomatic - Can use magic mouthwash if needed, assess daily for potential treatment General transfusion parameters (leukoreduced and irradiated blood [...] after completing platelet transfusion to assess response. Thank you for the opportunity to participate in the care of this patient. Hem/Onc consult service will continue to follow closely. Please don't hesitate to contact hem/onc consult fellow via the [employer] well treatment operator or [facility] if any questions or clarifications. Associated attestation - Abrahan Rivera MD - 12/04/2023 5:33 PM CDT I have seen and examined the patient with the resident. I agree with the findings and plan of care as documented by the resident. Date of resident's note: 12/04/2023 Date of service: 12/04/2023 Abrahan Rivera MD * Gaurav Moyer - 12/03/2023 1:12 PM CDT Music Therapy Progress Note Start Time: 1030 End Time: 1100 Music Therapy Goals: Increase relaxation and Increase meaningful social interaction Intervention Provided: Provide familiar / significant music, Utilized iso- principle and Provide opportunities for social interaction Therapy Type: Individual Therapy Patient Response: Appropriate Affect: Mood, appropriate Treatment Modality: Music Therapy Music Therapist Gaurav Moyer visited patient in [facility] room. Patient was observed sitting up in chair, alert and oriented. During interventions, Patient smiled, made eye contact, moved in time with the music, sang, and mouthed familiar lyrics. Patient engaged in conversation after each intervention. At conclusion of session, no nonverbal indicators of distress observed. Gaurav Moyer, [facility] 12/03/2023 1:13 PM * Nannette Jade RN - 12/03/2023 12:45 PM CDT Problem: Symptom management Goal: Symptoms of nausea will be minimized Outcome: Progressing Goal: Symptoms of stomatitis will be minimized Outcome: Progressing Problem: Protective Precautions Goal: Patient will remain free of Nosocomial Infections Outcome: Progressing Problem: Bleeding Precautions Goal: Excessive bleeding will be minimized Outcome: Progressing Goal: Precautionary measures taken to prevent bleeding Outcome: Progressing Problem: Pain/Discomfort Goal: Patient exhibits reduced pain/discomfort as evidenced by pain scores Outcome: Progressing Goal: Patient uses pharmacological and non-pharmacological pain management strategies. Outcome: Progressing Goal: Patient verbalizes acceptable level of pain relief and ability to engage in desired activity. Outcome: Progressing Problem: Nutrient: Increased nutrient needs (specify) Goal: Total intake will meet estimated nutrient needs Outcome: Progressing * Ronak Newman DO - 12/03/2023 12:15 PM CDT Images from the original note were not included. HEMATOLOGY/ONCOLOGY INPATIENT PROGRESS NOTE Name: Sarah Mckeon Age: [age] year old Date of : 1985 Date of Service: 12/03/2023 Reason for Consult: AML HEMATOLOGY & ONCOLOGY HISTORY Principal Diagnosis: AML Current Therapy: C3D3 HiDAC consolidation SUBJECTIVE History of Present Illness Chief Complaint: Scheduled admission for C3 HiDAC History of Present Illness: Sarah Mckeon is a 38 year old female with favorable risk AML, NPM-1 mutation in complete remissionpresenting for C3 of HiDAC consolidation therapy. Originally in August of 2023 was admitted to [facility] c/o flu like symptoms and ultimately had marrow biopsy revealing 78% blasts on marrow and flow cytometry confirmed NPM1 mutation. Was sent to [facility] for AML. Completed 7 [...] diarrhea, dizziness, lightheadedness, SOB, cough, or LUTS. Interval History: No acute events overnight, asymptomatic, hemodynamically stable, tolerated D1 treatment well. Todayno new complaints, keeps active walking around the tapia and her room. Review of Systems: As noted in HPI. All other systems reviewed and negative. Past Medical & Surgical History Patient Active Problem List Diagnosis ??? Hypernatremia ??? Hypophosphatemia ??? Anemia ??? Vaginal bleeding ??? IIH (idiopathic intracranial hypertension) ??? Acute hypoxic respiratory failure (HCC) ??? Pulmonary edema (HCC) ??? Pancytopenia (HCC) ??? Tonsillitis ??? Acute myeloid leukemia [...] unspecified 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 ([facility]) 09/06/2023 - Chemotherapy cytarabine (Cytosar) 460 mg [...] Active Treatment Days for Sarah Mckeon (until 12/04/2023) 12/02/2023 ONCOLOGY TREATMENT: IP AML CONSOLIDATION - AGE <60 (HIGH DOSE CYTARABINE)(SANDHU HIDAC) Day 3, Cycle 3 (Started) Pre-Medications: ondansetron (Zofran) injection 8 mg, dexAMETHasone (Decadron) injection 8 mg Chemotherapy: cytarabine (Cytosar) 6,700 mg in 0.9% NaCl IV 597 mL infusion Social History Social History Tobacco Use ??? Smoking status: Former Packs/day: 1 Types: Cigarettes Start date: 2004 Quit date: 2010 Years since quittin.2 ??? Smokeless tobacco: Never Substance Use Topics ??? Alcohol use: Yes Comment: occasional Family History Family History Family history unknown: Yes Medications SCHEDULED MEDICATIONS: 0.9% NaCl injection 3 mL, Intracatheter, q8h acetaZOLAMIDE (Diamox) tablet 500 mg, Oral, BID artificial tears ophthalmic solution 1 drop, Each Eye, 6X/day cytarabine (Cytosar) 6,700 mg in 0.9% NaCl IV 597 mL infusion, Intravenous, q12h dexAMETHasone (Decadron) 0.1 % ophthalmic suspension 2 drop, Each Eye, 4X/DAY famotidine (Pepcid) tablet 20 mg, Oral, BID heparin lock flush injection 500 Units, Intracatheter, QDAY ondansetron (Zofran) injection 8 mg, Intravenous, q12h posaconazole (Noxafil) tablet 300 mg, Oral, QDAY WITH DINNER potassium chloride ER (Klor-Con M) tablet 20 mEq, Oral, QDAY valACYclovir (Valtrex) tablet 500 mg, Oral, BID [COMPLETED] dexAMETHasone (Decadron) injection 8 mg, Intravenous, Once CONTINUOUS MEDICATIONS: PRN MEDICATIONS: Or 0.9% NaCl injection 1-10 mL, Intracatheter, PRN magnesium sulfate 2 g in 50 mL bolus, Intravenous, PRN magnesium sulfate 4 g in 100 mL bolus, Intravenous, PRN ondansetron (disintegrating) (Zofran ODT) tablet 8 mg, Oral, BID PRN ondansetron (Zofran) injection 8 mg, Intravenous, BID PRN prochlorperazine (Compazine) injection 5 mg, Intravenous, q4h PRN prochlorperazine (Compazine) tablet 10 mg, Oral, q4h PRN Allergies No Known Allergies OBJECTIVE Physical Exam Vitals: 12/02/23 0853 12/02/23 2024 12/03/23 0825 12/03/23 1144 BP: 136/91 136/83 114/76 Pulse: 106 68 72 Resp: 18 18 16 Temp: 98 ??F (36.7 ??C) 97.9 ??F (36.6 ??C) 97.9 ??F (36.6 ??C) SpO2: 100% 100% 100% Weight: 110.6 kg (243 lb 12.8 oz) Height: 1.575 m (5' 2.01 ) Wt Readings from Last 3 Encounters: 12/02/23 110.6 kg (243 lb 12.8 oz) 12/01/23 110.1 kg (242 lb 12.8 oz) 11/28/23 110.6 kg (243 lb 12.8 oz) ECO General: AAOx4, no acute distress, pleasant and cooperative Head: normocephalic, atraumatic Eyes: conjunctivae clear, extraocular muscles intact Mouth/Throat: oropharynx clear with no lesions, moist mucous membranes Neck: no jugular venous distension, no cervical lympadenopathy, good range of motion CV: regular rate and rhythm, no murmurs appreciated Resp: good bilateral air entry, no wheezes, no crackles, Abd: normoactive BS, soft, nontender, non distended Extremities: +1 BLLE , no cyanosis Skin: skin color and turgor normal, no rashes or lesions noted Neuro: moving all extremities well, no focal deficits Laboratory Results Recent Labs Component Name 12/02/23200212/01/23 0852 11/28/23 0837 WBC 6.1 4.9 3.7* RBC 2.54* 2.67* 2.79* HGB 7.4* 7.7* 7.9* HCT 21.1* 21.9* 22.2* MCV 83.1 82.0 79.6* MCHC 35.1 35.2 35.6 PLTCOUNT 64* 61* 46* NEUTPCT 72.9 52.9 39.9* LYMPHPCT 6.5* 17.2 20.2 NEUTABS 4.47 2.58 1.48* LYMPHABS 0.40* 0.84* 0.75* BASOABS 0.00 0.00 0.00 Recent Labs Component Name 12/02/23200212/01/23 0852 11/28/23 0837 POTASSIUM 4.1 3.5 3.4* CO2 19* 21* 21* BUN 11 8 7 CREATININE 0.73 0.77 0.69 EGFR >90 >90 >90 GLUCOSE 186* 158* 152* CALCIUM 9.8 9.3 9.3 MAGNESIUM 2.4 1.9 1.9 PHOS 3.4 2.7* 3.2 ALT 44 44 60* AST 24 24 36* ALKPHOS 73 81 79 Pathology Results Personally reviewed and summarized above in Hematology & Oncology History Radiology Results Personally reviewed and summarized above in Hematology & Oncology History ASSESSMENT Sarah Mckeon is a 38 year old female with 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 1. 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 No more IT treatment planned. PLAN: - Continue with C3,D3 HiDAC consolidation - Continue OI ppx with valtrex, posaconazole. - If neutropenic (ANC <500), please start levofloxacin ppx - Continue dexamethasone eye drops for chemical conjunctivitis ppx while whole high dose cytarabine. 2. 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 3. Vaginal Bleeding - Medroxyprogesterone pill discontinued 2/ concern for IIH. Confirmed with patient that she is nottaking it. - CTM 4. Elevated ICP - symptom onset during admission, 10/07/23. LP at the time revealed elevated ipening pressure, but meningitis w/u was unrevealing. - Concerns for IIH - Continue acetazolamide 500 BID 5. Mouth lesions/ Jaw pain - Currently asymptomatic - Can use magic mouthwash if needed, assess daily for potential treatment General transfusion parameters (leukoreduced and irradiated blood [...] after completing platelet transfusion to assess response. Thank you for the opportunity to participate in the care of this patient. Hem/Onc consult service will continue to follow closely. Please don't hesitate to contact hem/onc consult fellow via the oil and gas well treatment operator or [employer] if any questions or clarifications. Associated attestation - Abrahan Rivera MD - 12/03/2023 4:10 PM CDT I have seen and examined the patient with the resident. I agree with the findings and plan of care as documented by the resident. Date of resident's note: 12/03/2023 Date of service: 12/03/2023 Abrahan Rivera MD * Conor Valdes - 12/03/2023 6:33 AM CDT [facility] INTERNAL MEDICINE PROGRESS NOTE Patient: Sarah Mckeon Sex: female Age: [age] year old Date of : 1985 Date of Admission: 12/01/2023 Date: 12/03/2023 LOS: 2 SUBJECTIVE Interval History: No acute events overnight. She reports she is feeling well. Denies chest pain, SOB, abdominal pain,n/v, headache, weakness, or any complaints. 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 She is in remission per bone marrow biopsy in 10/01/23. 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 She received cycle 1 on 10/04 and cycle 2 on 11/03/23. She presents today for cycle three of HiDAC, currently on day 2. ?? She presented with tachycardia and otherwise VSS. Lab findings were significant for anemia and thrombocytopenia consistent with her history. She has been stable on the floor. Chemotherapy being managed by heme/onc. OBJECTIVE Vital Signs: Vitals: 12/01/23 1954 12/01/23 2354 12/02/23 0853 12/02/232023 BP: 133/77 136/91 136/83 Pulse: (!) 113 106 68 Resp: Temp: 98 ??F (36.7 ??C) 98 ??F (36.7 ??C) 97.9 ??F (36.6 ??C) SpO2: 98% 100% 100% Weight: 110.3 kg (243 lb 3.2 oz) 110.6 kg (243 lb 12.8 oz) Temp Min: 97 ??F (36.1 ??C) Max: 101.1 ??F (38.4 ??C), Pulse Min: 51 Max: 157, Resp Min: 12 Max: 32, BP Min: 92/58 Max: 169/91 Intake & Output: In: 2781.7 [P.O.:2160; I.V.:621.7] Out: 3800 [Urine:3800] Physical Exam: General: Alert and oriented to person, place, time and situation, no acute distress Neck: No JVD or cartoid bruit. Trachea midline. Heart: RRR, Normal S1 and S2. No murmurs appreciated. Chest: Normal breath sounds, no wheezes or rhonchi Abdomen: Soft, non-tender, non-distended, bowel sounds present Extremities: No lower extremity edema, 2+ distal peripheral pulses Neuro: No focal deficits noted Intake/Output Summary (Last 24 hours) at 12/03/2023 0633 Last data filed at 12/02/20232023 Gross per 24 hour Intake 1660 ml Output 3300 ml Net -1640 ml Current Medications: Scheduled: ??? 0.9% NaCl 3 mL Intracatheter q8h ??? acetaZOLAMIDE 500 mg Oral BID ??? artificial tears 1 drop Each Eye 6X/day ??? cytarabine 3,000 mg/m2 (Treatment Plan Recorded) Intravenous q12h ??? dexAMETHasone 2 drop Each Eye 4X/DAY ??? dexAMETHasone 8 mg Intravenous Once ??? famotidine 20 mg Oral BID ??? heparin lock flush 500 Units Intracatheter QDAY ??? ondansetron 8 mg Intravenous q12h ??? posaconazole 300 mg Oral QDAY WITH DINNER ??? potassium chloride ER 20 mEq Oral QDAY ??? valACYclovir 500 mg Oral BID Continuous: PRN: ??? 0.9% NaCl AND 0.9% NaCl ??? magnesium sulfate OR magnesium sulfate ??? ondansetron (disintegrating) ??? ondansetron ??? prochlorperazine ??? prochlorperazine Significant Lab Results: CBC: Recent Labs Component Name 12/02/23200212/01/23 0852 11/28/23 0837 WBC 6.1 4.9 3.7* HGB 7.4* 7.7* 7.9* HCT 21.1* 21.9* 22.2* MCV 83.1 82.0 79.6* Coagulation Panel: Recent Labs Component Name 09/13/23205109/12/23204509/11/232001 PT 13.1 13.6 14.4 INR 1.0 1.1 1.2 PTT 23.2 20.9* 21.9* BMP: Recent Labs Component Name 12/02/23200212/01/23 0852 11/28/23 0837 NA 139 141 142 POTASSIUM 4.1 3.5 3.4* CL 112* 111* 110* CO2 19* 21* 21* BUN 11 8 7 CREATININE 0.73 0.77 0.69 CALCIUM 9.8 9.3 9.3 Recent Labs Component Name 12/02/23200212/01/23 0852 11/28/23 0837 MAGNESIUM 2.4 1.9 1.9 Recent Labs Component Name 12/02/23200212/01/23 0852 11/28/23 0837 PHOS 3.4 2.7* 3.2 Hepatic Panel: Recent Labs Component Name 12/02/23200212/01/23 0852 11/28/23 0837 AST 24 24 36* ALT 44 44 60* ALKPHOS 73 81 79 TBILI 0.5 0.5 0.4 ALB 3.6 3.4 3.2* ABG: Recent Labs Component Name 10/09/23 0604 09/25/23 0014 PH 7.36 7.45 PCO2 - 25* PO2 - 94 Amylase/Lipase: Invalid input(s): AMYL , LIPA Thyroid Studies: Recent Labs Component Name 11/28/23 0837 TSH 1.840 Cardiac Enzymes: No results for input(s): CKTOTAL , CKMB , TROPONINI in the last 08307 hours. Invalid input(s): CKMBINDEX Lipid Panel: No results for input(s): LDLCALC , HDL in the last 03904 hours. Microbiology: Microbiology Results (Displays last 21 days for this encounter ONLY) Procedure Component Value - Date/Time CULTURE URINE [[id number]] Collected: 12/01/23 08 Lab Status: Final result Specimen: Urine Clean Catch Updated: 12/02/232306 Culture Urine 50,000-100,000 CFU/mL urogenital neris Imaging & Studies: No results found. ASSESSMENT & PLAN Sarah Mckeon is a 38 year old female with AML in remission (10/01/23). She is s/p 7+3 (cytoarabine and idarubicin) on 09/06 and is currently receiving HiDAC s/p 2 cycles (10/04, 11/03) due to concern for PULP DRIER FIRER involvement. She presents on 12/01 for cycle 3 of HiDAC. Heme/onc is currenty managing her chemo. She is doing well currently. ?? 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 #Home meds Famotidine 20mg qd: GERD Potassium chloride 20meq qd: hypokalemia ?? #Incidental findings 1.8 cm thyroid nodule seen 11/23 CT, first noted September. TSH normal. - OP thyroid US Chronic/ historic problems: #Vaginal bleeding - endorses she is currently experiences occasional spotting <1 pad per day Plan: - provide pads when needed - Depo shot 12/11 outpatient ?? #Elevated ICP #Papilledema - concern for increased ICP given Ct imaging, elevated ICP 31 for IT chemo, meningitis w/u negative, concern for IIH - discharged on acetazolamide with optho f/u, - ophtho called about missed appointment, will f/u in 2 weeks, see plan of care note - acetazolamide 500mg BID - patient reports she is not taking acetazolamide at home Plan: - acetazolamide 500mg BID ?? #Multilayered retinal hemorrhages #Dry eyes - reports she had spots in both eyes, hasn't bothering her since taking eye drops - reports she is taking steroids and lubricant eye drops at home - Per ophto examination, no concern for leukemic retinopathy, saw intraretinal and preretinal hemorrhages likely d/t underlying blood dyscrasias. Had significant improvement 10/13. - ophtho called about missed appointment, will f/u in 2 weeks, see plan of care note Plan: - f/u optho - PFAT 6 times daily, dexamethasone eye drops ?? #Mouth lesions, jaw/pain (resolved) - last week, resolved with warm salt rinse - had CT face 11/23 with no significant findings ?? #History of SAH - incidental findings on SAH on Ct head during September admission - NSGY f/u on 11/[address] head showed interval resolution of small SAH Plan - CTM Code: FULL Diet: Regular Electrolytes: Replete PRN PPx: SCD Access: Central [facility] Dispo: likely home pending chemo The above assessment and plan will be discussed with the attending. This note is not final until attested by attending physician. Conor Valdes MS4 [facility] 12/03/2023 6:33 AM Associated attestation - Susana Perez MD - 12/04/2023 1:05 PM CDT I have verified the documentation of the medical student including all history, exam, and medical decision-making details. I have personally performed a physical exam and have personally reviewed thedata to support my medical decision-making as outlined in the medical student???s note, and I arrive independently at the same conclusion. Date of Service: 12/03/2023 Susana Perez MD * Justin Moon RN - 12/02/2023 2:25 PM CDT Care Coordination Initial Assessment Anticipated Discharge Date: 12/06/23 Transportation at Discharge: Family Anticipated level of care at discharge: Home Anticipated level of care provider: None Prior to admission level of care: Home Prior to admit provider: None Patient Goals: Safe return home Plans: No discharge needs identified at this time. Consult Case Management if discharge planning needs arise. Comments: 38 year old??female??with PMH of AML??diagnosed in 08/2023??who was directly admitted for??chemotherapy. Cycle 3 of HiDAC consolidation therapy. Follow up transport concern: Patient states she and her SO has been driving to follow up visits then requesting mileage reimbursement as her prearranged [place] Medicaid transport, the bottom hoop driver assigned trips have frequently canceled transport day of appointment. When she requests no Lyft drivers, Lyft drivers are still assigned by [place] Medicaid. Lives with: Daughter;Significant Other Physical Limitations: None Requires Assistance With: None Preferred Pharmacy: [id number] - [address] [id number] [address] [facility] [address] READMISSION RISK SCORE is 22 at 3:21 PM 12/02/2023. Met with patient Family Support (name and phone): Extended Emergency Contact Information Primary Emergency Contact: tonia fernández Mobile Relation: Significant other Secondary Emergency Contact: French Rosenthal Mobile Relation: Friend Health Plan Advisor needed? No Patient or construction representative requests care coordination reach out to family or caregiver listed above regarding discharge planning and at time of discharge? No Patient/Family provided with list of resources? No Preferred Provider / High Quality Network List given?: No Reason for provider choice: Pt. choice - Physician driven Equipment at Home: None List DME pt. requires but does not have.: None Orthopedics Nurse Referral: No Will continue to follow. For any questions or needs please contact: Liquefaction Supervisor Name/Phone number: Justin Moon RN [phone] * Gaurav Moyer - 12/02/2023 1:03 PM CDT Music Therapy Progress Note Start Time: 1010 End Time: 1040 Music Therapy Goals: Increase relaxation and Increase meaningful social interaction Intervention Provided: Provide familiar / significant music and Provide opportunities for social interaction Therapy Type: Individual Therapy Patient Response: Appropriate Affect: Mood, appropriate Treatment Modality: Music Therapy Music Therapist Gaurav Moyer and music therapy student visited patient in [facility]. Patient was observed sitting up in chair, alert and oriented. During interventions, Patient smiled, made eye contact, sang, mouthed familiar lyrics, and moved in time with the music. At conclusion of session, no nonverbal indicators of distress observed. ERLINDA Philip, MT-BC 12/02/2023 1:03 PM * Janae Miles RN - 12/02/2023 11:51 AM CDT Problem: Symptom management Goal: Symptoms of nausea will be minimized Outcome: Progressing Goal: Symptoms of stomatitis will be minimized Outcome: Progressing Problem: Protective Precautions Goal: Patient will remain free of Nosocomial Infections Outcome: Progressing Problem: Bleeding Precautions Goal: Excessive bleeding will be minimized Outcome: Progressing Goal: Precautionary measures taken to prevent bleeding Outcome: Progressing Problem: Pain/Discomfort Goal: Patient exhibits reduced pain/discomfort as evidenced by pain scores Outcome: Progressing Goal: Patient uses pharmacological and non-pharmacological pain management strategies. Outcome: Progressing Goal: Patient verbalizes acceptable level of pain relief and ability to engage in desired activity. Outcome: Progressing Problem: Pain/Discomfort Goal: Patient exhibits reduced pain/discomfort as evidenced by pain scores Outcome: Progressing Goal: Patient uses pharmacological and non-pharmacological pain management strategies. Outcome: Progressing Goal: Patient verbalizes acceptable level of pain relief and ability to engage in desired activity. Outcome: Progressing * Nieves Quevedo PT - 12/02/2023 11:21 AM CDT [facility] Department of Physical Medicine & Rehabilitation Progress Note Patient: Sarah Mckeon Med Record Number: [id number] Date of : 1985 Age: [age] year old PT orders received, chart reviewed. Per MDRs, pt is independent with no skilled PT needs. Yellow team aware. D/C PT. * Dano Jean MD - 12/02/2023 8:38 AM CDT PLAN OF CARE- OPHTHALMOLOGY Sarah Mckeon is a 38 year old female was scheduled to see Dr. Hobson today for resolving papilledema. She can be rescheduled for 2 weeks with him for repeat testing and OCT-H of the optic nerves Recommendations: - Continue diamox/acetazolamide 500 BID - Follow up will be scheduled for 2 weeks from now with Dr. Hobson. Dano Jean MD Ophthalmology documented in this encounter H&P Notes * Rio Escamilla MD - 12/02/2023 10:10 AM CDT [facility] INTERNAL MEDICINE HISTORY & PHYSICAL NOTE Date of Admission: 12/01/2023 Patient: Sarah Mckeon Sex: female Age: [age] year old Date of : 1985 Code Status: Full Code SUBJECTIVE Chief Complaint: No chief complaint on file. History of Present Illness: 38 year old female with PMH of AML diagnosed in 08/2023 who was directly admitted for chemotherapy.Cycle 3 of HiDAC consolidation therapy. The patient denies any current symptoms. Upon admission the patient was AAOx4 in no distress. Vitals signs were within normal limits. Labs were significant for Hegb of 7.7 (at baseline), PLT of 61. Otherwise labs were unremarkable. Past Medical History: Past Medical History: Diagnosis [...] date: 2004 Quit date: 2011 Years since quittin.2 ??? Smokeless tobacco: Never Vaping Use ??? Vaping Use: Never used Substance and Sexual Activity ??? Alcohol use: Yes Comment: occasional ??? Drug use: Never ??? Sexual activity: Yes Other Topics Concern ??? Not on file Social History Narrative ??? Not on file Social Determinants of Health Financial Resource Strain: Patient Declined (12/01/2023) Overall Financial Resource Strain (CARDIA) ??? Difficulty of Paying Living Expenses: Patient declined Food Insecurity: Patient Declined (12/01/2023) Hunger Vital Sign ??? Worried About Running Out of Food in the Last Year: Patient declined ??? Ran Out of Food in the Last Year: Patient declined Transportation Needs: Patient Declined (12/01/2023) PRAPARE - Transportation ??? Lack of Transportation (Medical): Patient declined ??? Lack of Transportation (Non-Medical): Patient declined Stress: Patient Declined (12/01/2023) [place] [employer] - Occupational Stress Questionnaire ??? Feeling of Stress : Patient declined Recent Concern: Stress - Stress Concern Present (11/03/2023) [place] [employer] [employer] [facility] - Occupational Stress Questionnaire ??? Feeling of Stress : To some extent Housing Stability: Patient Declined (12/01/2023) Housing Stability Vital Sign ??? Unable to Pay for Housing in the Last Year: Patient declined ??? Number of Places Lived in the Last Year: 1 ??? Unstable Housing in the Last Year: Patient declined Allergies: No Known Allergies Home Medications: No current facility-administered medications on file prior to encounter. Current Outpatient Medications on File Prior to Encounter Medication Sig Dispense Refill ??? Carboxymethylcellulose Sodium (ARTIFICIAL TEARS OP) ??? famotidine (Pepcid) 20 MG tablet Take 1 (one) tablet by mouth 2 times daily 60 tablet 1 ??? levoFLOXacin (Levaquin) 500 MG tablet Take 1 (one) tablet by mouth once daily (Patient not taking: Reported on 12/02/2023) 30 tablet 1 ??? medroxyPROGESTERone (Depo-Provera) 150 MG/ML vial Inject 1 mL into muscle every 84 days ??? ondansetron (Zofran) 8 MG tablet Take one tablet by mouth twice a day 1 hour before midostaurinon days 8 to 21 and one tablet every 12 hours as needed for breakthrough nausea/vomiting. Reasons: Nausea and Vomiting caused by Cancer Chemotherapy (Patient not taking: Reported on 12/02/2023) 100 tablet 11 ??? posaconazole (Noxafil) 100 MG tablet Take 3 (three) tablets by mouth daily with dinner 90 tablet 5 ??? potassium chloride ER 10 MEQ tablet Take 2 (two) tablets by mouth once daily 30 tablet 3 ??? prochlorperazine (Compazine) 10 MG tablet Take 1 (one) tablet by mouth every 6 hours as needed for Nausea/Vomiting (Patient not taking: Reported on 12/02/2023) 30 tablet 11 ??? valACYclovir (Valtrex) 500 MG tablet Take 1 (one) tablet by mouth 2 times daily 60 tablet 11 Current Medications: Scheduled: ??? 0.9% NaCl 3 mL Intracatheter q8h ??? dexAMETHasone 2 drop Each Eye 4X/DAY ??? famotidine 20 mg Oral BID ??? heparin lock flush 500 Units Intracatheter QDAY ??? posaconazole 300 mg Oral QDAY WITH DINNER ??? potassium chloride ER 20 mEq Oral QDAY ??? valACYclovir 500 mg Oral BID Continuous: PRN: ??? 0.9% NaCl AND 0.9% NaCl ??? magnesium sulfate OR magnesium sulfate ??? ondansetron (disintegrating) ??? ondansetron ??? prochlorperazine ??? prochlorperazine Review of Systems: (positives are bolded) CONSTITUTIONAL: weight loss, fevers, chills, sweats, malaise, anorexia, fatigue Head/ NEURO: headache, dizziness, syncope, vertigo, seizures, gait problems, tremor, balance, memory problems ENT: epistaxis, rhinorrhea, bleeding gums, hearing loss, tinnitus, odynophagia, dysphagia, EYES: visual blurring, double vision, eye pain RESP: SOB, pleuritic CP, dyspnea at rest, dyspnea on exertion, cough, sputum, wheezing CV: pressure chest pain, orthopnea, palpitations, edema, GI: nausea, vomiting, abdominal pain, constipation, diarrhea : incontinence, dysuria, frequency, hematuria, kidney stone MSK: joint stiffness, swelling, pain, weakness. SKIN: rash, itching, bruising, lumps or bumps PSYCH: depressed mood, anxiety, suicidal or homicidal ideation ENDO: cold or heat intolerance, polyphagia, polydipsia, polyuria HEME: anemia, bleeding disorder, abnormal bruising, blood clots OBJECTIVE Vital Signs: Temp: [98 ??F (36.7 ??C)] 98 ??F (36.7 ??C) Pulse: [106-113] 106 Resp: [18] 18 BP: (133-136)/(77-91) 136/91 Physical Exam: General: AAOx4, no acute distress, pleasant and cooperative Head: normocephalic, atraumatic Eyes: conjunctivae clear, extraocular muscles intact Mouth/Throat: oropharynx clear with no lesions, moist mucous membranes Neck: no jugular venous distension, no cervical lympadenopathy, good range of motion CV: regular rate and rhythm, no murmurs appreciated Resp: good bilateral air entry, no wheezes, no crackles, Abd: normoactive BS, soft, nontender, non distended Extremities: +1 BLLE , no cyanosis Skin: skin color and turgor normal, no rashes or lesions noted Neuro: moving all extremities well, no focal deficits Lab Results: CBC: Recent Labs Component Name 12/01/23 0852 11/28/23 0837 11/26/23 0946 WBC 4.9 3.7* 3.0* HGB 7.7* 7.9* 8.2* HCT 21.9* 22.2* 22.4* MCV 82.0 79.6* 79.7* Coagulation Panel: Recent Labs Component Name 09/13/23205109/12/23204509/11/232001 PT 13.1 13.6 14.4 INR 1.0 1.1 1.2 PTT 23.2 20.9* 21.9* BMP: Recent Labs Component Name 12/01/23 0852 11/28/23 0837 11/26/23 0946 NA 141 142 139 POTASSIUM 3.5 3.4* 3.3* CL 111* 110* 110* CO2 21* 21* 20* BUN 8 7 7 CREATININE 0.77 0.69 0.63 CALCIUM 9.3 9.3 9.3 Recent Labs Component Name 12/01/23 0852 11/28/23 0837 11/26/23 0946 MAGNESIUM 1.9 1.9 1.7 Recent Labs Component Name 12/01/23 0852 11/28/23 0837 11/26/23 0946 PHOS 2.7* 3.2 2.6* Hepatic Panel: Recent Labs Component Name 12/01/23 0852 11/28/23 0837 11/26/23 0946 AST 24 36* 25 ALT 44 60* 53 ALKPHOS 81 79 78 TBILI 0.5 0.4 0.4 ALB 3.4 3.2* 3.0* ABG: Recent Labs Component Name 10/09/23 0604 09/25/23 0014 PH 7.36 7.45 PCO2 - 25* PO2 - 94 Amylase/Lipase: Invalid input(s): AMYL , LIPA Thyroid Studies: Recent Labs Component Name 11/28/23 0837 TSH 1.840 Cardiac Enzymes: No results for input(s): CKTOTAL , CKMB , TROPONINI in the last 25719 hours. Invalid input(s): CKMBINDEX Lipid Panel: No results for input(s): LDLCALC , HDL in the last 01899 hours. UA: Microbiology: Microbiology Results (Displays last 21 days for this encounter ONLY) Procedure Component Value - Date/Time CULTURE URINE [[id number]] Collected: 12/01/23 0852 Lab Status: In process Specimen: Urine Clean Catch Updated: 12/01/23 09 Imaging & Studies: No results found. ASSESSMENT & PLAN 38 yo female with PMH of AML presenting for chemotherapy. #AML Myeloid malignancy mutation panel-NPM1 31.3%, TET2 69.9%, and RAST 5.2% Diagonised in 2022 after BMBx at [facility] after a BMBX showed 78% blasts on bone marrow flow cytometry, final report of biopsy showed 90% blasts consistent with AML. -TTE 09/27/23 EF 70-75% -FISH AML panel WNL, Normal karyotype -HIV and hep screen NR - Here for third cycle chemotherapy. EOT 12/03 - Count recovery marrow from 10/01/2023 shows CR, MRD flow negative, and NPM1 is negative by PCR. She is in molecular remission from AML standpoint. Plan is to complete 4 cycles of HiDAC consolidation. No more IT treatment planned. Plan: - Heme- ONC c/s follow reccs. - OI ppx Valtrex, posaconazole. - NAuzea, pain meds PRN: Zofran/Prochloperzaine. - if ANC <500, start levaquin. #Anemia #Thrombocytopenia - Most likely 2/2 AML - CTM and transfuse gfor Hgb <7 and PLT <20, <30 if active vaginal bleeding. #Vaginal bleeding - Keep platelets >30K while pt continues to have sx of bleeding. - s/p Depo shot 10/14, 11/12. Vaginal bleeding. - Depo on 12/10. #Elevated ICP #Multilayered retinal hemorrhages in both eyes likely due to underlying blood dyscrasias - Based on LP 10/07/23. Opening pressure was 31. - S/p intrathecal MTX 10/06/23 Continue diamox - Per ophthalmology note 10/13/23, pt's overall eye exam appears to be improving since initial concerns during recent admission. Ophthalmology recs: -??Start PFATs at least 6 times daily, - Steroids eye drops - Continue diamox 500 BID at this time - F/u with Dr. Hobson. Patient is admitted to the hospital for her chemotherapy so the apointment will be pospoponed for 14 days. #GERD: Famotidine #Hyokalemia: Potassium chloride #Hx of SAH: Resolved based on NSGY note on CT head 09/2023 Code: Full Diet: Diet orders this encounter Procedures ??? DIET REGULAR Electrolytes: Replete PRN PPx: SCD Access: pIV, port-a-cath. Dispo: Admit to Medicine. IP CONSULT TO NUTRITIONAL SERV IP CONSULT TO ONCOLOGY The above assessment and plan will be discussed with the attending. This note is not final until attested by attending physician. [place] PGY2 IM resident. 12/02/2023 10:11 AM Associated attestation - Jair Burgess MD - 12/02/2023 3:01 PM CDT I have seen and examined the patient with the resident and I agree with the findings and plan of care as documented by the resident. Date of service 12/02/23 Jair Burgess MD * Conor Valdes - 12/02/2023 7:13 AM CDT [facility] - [facility] MEDICINE HISTORY & PHYSICAL NOTE Date of Admission: 12/01/2023 Patient: Sarah Mckeon Sex: female Age: [age] year old Date of : 1985 Code Status: Full Code SUBJECTIVE Chief Complaint: I'm here for chemo History of Present Illness: Sarah Mckeon is a 38 year old female recently diagnosed with Acute Myeloid Leukemia by bone marrowbiopsy in August of 2023. She is in remission per bone marrow biopsy in 10/01/23. 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 She received cycle 1 on 10/04 and cycle 2 on 11/03/23. She presents today for cycle three of HiDAC, currently on day 2. She presented with tachycardia and otherwise VSS. Lab findings were significant for anemia and thrombocytopenia consistent with her history. Chemotherapy being managed by heme/onc. Past Medical History: Past Medical History: Diagnosis [...] date: 2004 Quit date: 2010 Years since quittin.2 ??? Smokeless tobacco: Never Vaping Use ??? Vaping Use: Never used Substance and Sexual Activity ??? Alcohol use: Yes Comment: occasional ??? Drug use: Never ??? Sexual activity: Yes Other Topics Concern ??? Not on file Social History Narrative ??? Not on file Social Determinants of Health Financial Resource Strain: Patient Declined (12/01/2023) Overall Financial Resource Strain (CARDIA) ??? Difficulty of Paying Living Expenses: Patient declined Food Insecurity: Patient Declined (12/01/2023) Hunger Vital Sign ??? Worried About Running Out of Food in the Last Year: Patient declined ??? Ran Out of Food in the Last Year: Patient declined Transportation Needs: Patient Declined (12/01/2023) PRAPARE - Transportation ??? Lack of Transportation (Medical): Patient declined ??? Lack of Transportation (Non-Medical): Patient declined Stress: Patient Declined (12/01/2023) [place] [employer] - Occupational Stress Questionnaire ??? Feeling of Stress : Patient declined Recent Concern: Stress - Stress Concern Present (11/03/2023) [place] [employer] - Occupational Stress Questionnaire ??? Feeling of Stress : To some extent Housing Stability: Patient Declined (12/01/2023) Housing Stability Vital Sign ??? Unable to Pay for Housing in the Last Year: Patient declined ??? Number of Places Lived in the Last Year: 1 ??? Unstable Housing in the Last Year: Patient declined Allergies: No Known Allergies Home Medications: No current facility-administered medications on file prior to encounter. Current Outpatient Medications on File Prior to [...] caused by Cancer Chemotherapy 100 tablet 11 ??? posaconazole (Noxafil) 100 MG tablet Take 3 (three) tablets by mouth daily with dinner 90 tablet 5 ??? potassium chloride ER 10 MEQ tablet Take 2 (two) tablets by mouth once daily 30 tablet 3 ??? prochlorperazine (Compazine) 10 MG tablet Take 1 (one) tablet by mouth every 6 hours as needed for Nausea/Vomiting 30 tablet 11 ??? valACYclovir (Valtrex) 500 MG tablet Take 1 (one) tablet by mouth 2 times daily 60 tablet 11 Current Medications: Scheduled: ??? dexAMETHasone 2 drop Each Eye 4X/DAY ??? famotidine 20 mg Oral BID ??? heparin lock flush 500 Units Intracatheter QDAY ??? posaconazole 300 mg Oral QDAY WITH DINNER ??? potassium chloride ER 20 mEq Oral QDAY ??? valACYclovir 500 mg Oral BID Continuous: PRN: ??? magnesium sulfate OR magnesium sulfate ??? ondansetron (disintegrating) ??? ondansetron ??? prochlorperazine ??? prochlorperazine Review of Systems: Review of Systems Constitutional: Negative for chills and fever. Eyes: Negative for blurred vision and discharge. Respiratory: Negative for cough and shortness of breath. Cardiovascular: Negative for chest pain and palpitations. Gastrointestinal: Negative for abdominal pain, nausea and vomiting. Genitourinary: Negative for dysuria and urgency. Musculoskeletal: Positive for neck pain. Negative for back pain. Skin: Negative for itching and rash. Neurological: Negative for seizures, weakness and headaches. Psychiatric/Behavioral: Negative for hallucinations. OBJECTIVE Vital Signs: Temp: [97.4 ??F (36.3 ??C)-98 ??F (36.7 ??C)] 98 ??F (36.7 ??C) Pulse: [111-113] 113 Resp: [18-22] 18 BP: (133-145)/(77-89) 133/77 Physical Exam: Physical Exam Constitutional: General: She is not in acute distress. Appearance: Normal appearance. She is obese. She is not ill-appearing. HENT: Head: Normocephalic and atraumatic. Mouth/Throat: Mouth: Mucous membranes are moist. Pharynx: Oropharynx is clear. Eyes: General: No scleral icterus. Extraocular Movements: Extraocular movements intact. Conjunctiva/sclera: Conjunctivae normal. Cardiovascular: Rate and Rhythm: Regular rhythm. Tachycardia present. Pulses: Normal pulses. Heart sounds: Normal heart sounds. No murmur heard. No friction rub. No gallop. Pulmonary: Effort: Pulmonary effort is normal. No respiratory distress. Breath sounds: Normal breath sounds. Abdominal: General: There is no distension. Palpations: Abdomen is soft. There is no mass. Tenderness: There is no abdominal tenderness. There is no guarding. Musculoskeletal: General: Normal range of motion. Cervical back: Normal range of motion. No tenderness. Skin: General: Skin is warm and dry. Capillary Refill: Capillary refill takes less than 2 seconds. Coloration: Skin is not jaundiced. Findings: No rash. Neurological: General: No focal deficit present. Mental Status: She is alert and oriented to person, place, and time. Mental status is at baseline. Psychiatric: Mood and Affect: Mood normal. Behavior: Behavior normal. Thought Content: Thought content normal. Judgment: Judgment normal. Lab Results: CBC: Recent Labs Component Name 12/01/23 0852 11/28/23 0837 11/26/23 0946 WBC 4.9 3.7* 3.0* HGB 7.7* 7.9* 8.2* HCT 21.9* 22.2* 22.4* MCV 82.0 79.6* 79.7* Coagulation Panel: Recent Labs Component Name 09/13/23205109/12/23204509/11/232001 PT 13.1 13.6 14.4 INR 1.0 1.1 1.2 PTT 23.2 20.9* 21.9* BMP: Recent Labs Component Name 12/01/23 0852 11/28/23 0837 11/26/23 0946 NA 141 142 139 POTASSIUM 3.5 3.4* 3.3* CL 111* 110* 110* CO2 21* 21* 20* BUN 8 7 7 CREATININE 0.77 0.69 0.63 CALCIUM 9.3 9.3 9.3 Recent Labs Component Name 12/01/23 0852 11/28/23 0837 11/26/23 0946 MAGNESIUM 1.9 1.9 1.7 Recent Labs Component Name 12/01/23 0852 11/28/23 0837 11/26/23 0946 PHOS 2.7* 3.2 2.6* Hepatic Panel: Recent Labs Component Name 12/01/23 0852 11/28/23 0837 11/26/23 0946 AST 24 36* 25 ALT 44 60* 53 ALKPHOS 81 79 78 TBILI 0.5 0.4 0.4 ALB 3.4 3.2* 3.0* ABG: Recent Labs Component Name 10/09/23 0604 09/25/23 0014 PH 7.36 7.45 PCO2 - 25* PO2 - 94 Amylase/Lipase: Invalid input(s): AMYL , LIPA Thyroid Studies: Recent Labs Component Name 11/28/23 0837 TSH 1.840 Cardiac Enzymes: No results for input(s): CKTOTAL , CKMB , TROPONINI in the last 31820 hours. Invalid input(s): CKMBINDEX Lipid Panel: No results for input(s): LDLCALC , HDL in the last 56777 hours. UA: 11/30: 2+ protein, 1+ blood, 1+ leukocyte esterase, 21-50 WBC Microbiology: 11/30 Urine culture pending Imaging & Studies: N/A ASSESSMENT & PLAN Sarah Mckeon is a 38 year old female with AML in remission (10/01/23). She is s/p 7+3 (cytoarabine and idarubicin) on 09/06 and is currently receiving HiDAC s/p 2 cycles (10/04, 11/03) due to concern for PULP DRIER FIRER involvement. She presents on 12/01 for cycle 3 of HiDAC. She is doing well today. 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 TSH normal. - OP thyroid US Chronic/ historic problems: #Vaginal bleeding - endorses history of heavy vaginal bleeding for which she was son medroxyprogesterone, switched todepo nurses' association executive director d/t concerns of IIH - received first dose 10/14, 11/12, upcoming dose 12/10 - endorses she is currently experiences occasional spotting <1 pad per day Plan: - provide pads when needed - Depo shot 12/11 outpatient #Elevated ICP #Papilledema - concern for increased ICP given Ct imaging, elevated ICP 31 for IT chemo - meningitis w/u negative, concern for IIH - discharged on acetazolamide with optho f/u, - ophtho called about missed appointment, will f/u in 2 weeks, see plan of care note - acetazolamide 500mg BID - patient reports she is not taking acetazolamide at home Plan: - start acetazolamide 500mg BID #Multilayered retinal hemorrhages #Dry eyes - reports she had spots in both eyes, hasn't bothering her since taking eye drops - reports she is taking steroids and lubricant eye drops at home - Per ophto examination, no concern for leukemic retinopathy, saw intraretinal and preretinal hemorrhages likely d/t underlying blood dyscrasias. Had significant improvement 10/13. - ophtho called about missed appointment, will f/u in 2 weeks, see plan of care note Plan: - f/u optho - PFAT 6 times daily, dexamethasone eye drops #Mouth lesions, jaw/pain (resolved) - last week, resolved with warm salt rinse - had CT face 11/23 with no significant findings #History of SAH - incidental findings on SAH on Ct head during September admission - NSGY f/u on 11/[address] head showed interval resolution of small SAH Plan - monitor for devotement of headache, nausea, vomiting, numbness, tingling, weakness, or seizures Code: FULL Diet: Regular Electrolytes: Replete PRN PPx: SCDs Access: Central Line RIJ Dispo: Admit to Medicine. The above assessment and plan will be discussed with the attending. This note is not final until attested by attending physician. Conor Valdes MS4 [facility] - [facility] 12/02/2023 7:14 AM Associated attestation - Jair Burgess MD - 12/02/2023 2:58 PM CDT This note is for educational purposes only. Please refer to documentation done separately in resident's note. Jair Burgess MD documented in this encounter Consult Notes * Anita Rios MD - 12/03/2023 4:52 PM CDTAssociated Order(s): IP CONSULT TO ONCOLOGY Please see consult note dated 12/01 * Tere Luna - 12/02/2023 3:09 PM CDTAssociated Order(s): IP CONSULT TO NUTRITIONAL SERV Clinical Nutrition Assessment Brief Synopsis: Patient is at Nutrition Risk; Specific criteria can be found in assessment below Nutrition Plan: Regular Diet +Equate Protein shake from outside Recommendations to Physician: None Comments: Pt consulted for BMT. Pt seen by international accountant this afternoon. Pt reports good appetite. Pt denies any N/V/C/D or chewing/swallowing issues. Pt reports having issues eating last week d/t mouth sores, but symptoms are resolving. Pt denies any tastes changes but states that this usually starts around day 3-4 of treatment for her. Pt denies any unintended wt loss. She reports a 25# wt loss since August d/t weight loss interventions of diet and exercise. Reports new UBW of 240# Scaledweights indicate that her weight is stable. Last BM was this morning (12/01). Labs reviewed--elevated blood glucose levels noted. Pt is knowlegable about increased needs and brought protein shakes (Equate chocolate) from home to the hospital. Pt was educated on high protein, high calorie diet to support needs during treatment. Pt was receptive to education. RD to follow. Assessment: Med/Surg History and Clinical Diagnoses: 38 year old female recently diagnosed with Acute Myeloid Leukemia. In remission per bone marrow biopsy in 10/01/23. Currently receiving HiDAC; received cycle 1on 10/04 and cycle 2 on 11/03/23; admitted for cycle three of HiDAC, currently on day 2. Weight: 110.3 kg (243 lb 3.2 oz) BMI: Body mass index is 44.48 kg/m??. BMI Range: Morbidly Obese Class 3 , Usual weight/lb: 240 Recent Weights/Methods 11/17/2023 1157 11/19/2023 0931 11/19/2023 1046 11/21/2023 1030 11/24/2023 0950 11/26/2023 0941 11/28/2023 0834 12/01/20231953 Weight: 109.4 kg (241 lb 1.6 oz) 110.7 kg (244 lb) 110.5 kg (243 lb 8 oz) 112.1 kg (247 lb 1.6 oz) 109 kg (240 lb 4.8 oz) 109.6 kg (241 lb 9.6 oz) 110.6 kg (243 lb 12.8 oz) 110.3 kg (243 lb 3.2 oz) Weight Method : -- -- -- -- -- -- -- Standing scale Wt Comments: Scaled wt indicates that pt weight is stable. Pt reports an intended 25# wt loss sinceDecember d/t weight loss goals through diet and exercise. Reports no recent weight changes aside from regular +/- 3# fluctuations from new UBW of 240. Diet order accuracy Current diet order: Regular Nutrition recommendation: agree with current nutrition order P.O.Intake for the past 48 hrs: % Meal Taken Av % Min: 100 % Max: 100 % Food Allergies: No known food allergies GI Concerns: None Chewing/Swallowing: None Pain affecting intake: No Estimated Needs: KCAL: 0446-6214 (based on 30-35 kcal/kg IBW) Protein (g): 60-75 (based on 1.2-1.5 g/kg IBW) Fluid (ml): 1 ml/kcal Needs based on: Kcal/kg- (Comment) Recommended Access Route: PO Laboratory values: Recent Labs Component Name 12/01/23 0852 11/28/23 0837 11/26/23 0946 BUN 8 7 7 CREATININE 0.77 0.69 0.63 NA 141 142 139 POTASSIUM 3.5 3.4* 3.3* CL 111* 110* 110* CO2 21* 21* 20* GLUCOSE 158* 152* 175* CALCIUM 9.3 9.3 9.3 PROT 6.7 6.5 6.5 ALB 3.4 3.2* 3.0* TBILI 0.5 0.4 0.4 ALKPHOS 81 79 78 ALT 44 60* 53 AST 24 36* 25 ANIONGAP 9 11 9 BCR 10 10 11 OSMOLALITY 294 295 290 AGRATIO 1.0* 1.0* 0.9* EGFR >90 >90 >90 Medications: Current Facility-Administered Medications Medication ??? 0.9% NaCl injection 3 mL And ??? 0.9% NaCl injection 1-10 mL ??? acetaZOLAMIDE (Diamox) tablet 500 mg ??? dexAMETHasone (Decadron) 0.1 % ophthalmic suspension 2 drop ??? famotidine (Pepcid) tablet 20 mg ??? heparin lock flush injection 500 Units ??? magnesium sulfate 2 g in 50 mL bolus Or ??? magnesium sulfate 4 g in 100 mL bolus ??? ondansetron (disintegrating) (Zofran ODT) tablet 8 mg ??? ondansetron (Zofran) injection 8 mg ??? PATIENT SUPPLIED MEDICATION 1 drop ??? posaconazole (Noxafil) tablet 300 mg ??? potassium chloride ER (Klor-Con M) tablet 20 mEq ??? prochlorperazine (Compazine) injection 5 mg ??? prochlorperazine (Compazine) tablet 10 mg ??? valACYclovir (Valtrex) tablet 500 mg Skin/Wound: WDL Education needed: High Calorie;High Protein Education Provided: Yes;Handout Provided Expected level of compliance: Good Nutrition Care Process (1) Nutrition Diagnostic Statement: Increased nutrient needs related to:: cancer as evidenced by:: estimated energy needs ..;estimated protein needs .. Nutrition Diagnostic Statement Progress: New diagnostic statement established Nutrition Intervention: Meals and snacks: Monitoring: GI, PO intake, WT, labs, medications Evaluation: Nutrition Goal: Total intake will meet estimated nutrient needs Nutrition Goal Timeframe: Throughout stay Nutrition Goal Progress: New goal established Tere Stevens [employer] [id number] * Ronak Newman DO - 12/02/2023 6:09 AM CDT Images from the original note were not included. HEMATOLOGY/ONCOLOGY INPATIENT CONSULTATION NOTE Name: Sarah Mckeon Age: [age] year old Date of : 1985 Date of Service: 12/02/2023 Reason for Consult: AML HEMATOLOGY & ONCOLOGY HISTORY Principal Diagnosis: AML Current Therapy: C3D2 HiDAC Prior Hematology/Oncology History: Acute myeloid leukemia in remission (HCC) 09/03/2023 Initial Diagnosis ?? 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 ([facility]) ?? 09/06/2023 - Chemotherapy ?? cytarabine (Cytosar) 460 mg in 0.9% NaCl IV 534.6 mL infusion, 200 mg/m2 = 460 mg, Intravenous, ONCE, 1 of 1 cycle ?? Administration: 460 mg (09/06/2023), 460 mg (09/07/2023), 460 mg (09/08/2023), 460 mg (09/09/2023),460 mg (09/10/2023), 460 mg (09/11/2023), 460 mg (09/12/2023) ? rasburicase (Elitek) 3 mg in 0.9% NaCl IV 50 mL bolus, 3 mg, Intravenous, PRN, 1 of 1 cycle ? IDArubicin (Idamycin) injection 27 mg, 12 mg/m2 = 27 mg, Intravenous, ONCE, 1 of 1 cycle ?? Administration: 27 mg (09/06/2023), 27 mg (09/07/2023), 27 mg (09/08/2023) ?? cytarabine (Cytosar) 6,700 mg in 0.9% NaCl IV 597 mL infusion, 3,000 mg/m2 = 6,700 mg, Intravenous,EVERY 12 HOURS, 1 of 2 cycles ?? Administration: 6,700 mg (10/04/2023), 6,700 mg (10/04/2023), 6,700 mg (10/06/2023) ?? C1 7+3 Induction 09/06/23 C1 HiDAC 10/04/23 ?? 10/01/2023 Remission ?? Molecular remission CR1, negative MRD by flow and NPM1 negative by PCR in the bone marrow ?? 10/03/2023 Adverse Reaction ?? Leukemic infiltrate vs IIH as a cause of increased ICP will treat empirically with stable to improving disc edema on exam-- to prevent vision loss.? SUBJECTIVE History of Present Illness Chief Complaint: Scheduled admission for C3 HiDAC History of Present Illness: Sarah Mckeon is a 38 year old female with favorable risk AML, NPM-1 mutation in complete remissionpresenting for C3 of HiDAC consolidation therapy. Originally in August of 2023 was admitted to [facility] c/o flu like symptoms and ultimately had marrow biopsy revealing 78% blasts on marrow and flow cytometry confirmed NPM1 mutation. Was sent to [facility] for AML. Completed 7 [...] diarrhea, dizziness, lightheadedness, SOB, cough, or LUTS. Review of Systems: As noted in HPI. All other systems reviewed and negative. Past Medical & Surgical History Patient Active Problem List Diagnosis ??? Hypernatremia ??? Hypophosphatemia ??? Anemia ??? Vaginal bleeding ??? IIH (idiopathic intracranial hypertension) ??? Acute hypoxic respiratory failure (HCC) ??? Pulmonary edema (HCC) ??? Pancytopenia (HCC) ??? Tonsillitis ??? Acute myeloid leukemia [...] unspecified 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 ([facility]) 09/06/2023 - Chemotherapy cytarabine (Cytosar) 460 mg [...] Active Treatment Days for Sarah Mckeon (until 12/03/2023) 12/01/2023 ONCOLOGY TREATMENT: IP AML CONSOLIDATION - AGE <60 (HIGH DOSE CYTARABINE)(SANDHU HIDAC) Day 1, Cycle 3 (Started) Pre-Medications: ondansetron (Zofran) injection 8 mg, ondansetron (Zofran) injection 8 mg, dexAMETHasone (Decadron) [...] 8 mg, ondansetron (Zofran) injection 8 mg, levoFLOXacin (Levaquin) tablet 500 mg, valACYclovir (Valtrex) tablet 500 mg 12/03/2023 ONCOLOGY TREATMENT: IP AML CONSOLIDATION - AGE <60 (HIGH DOSE CYTARABINE)(SANDHU HIDAC) Day 3, Cycle 3 (Planned) Pre-Medications: ondansetron (Zofran) injection 8 mg, dexAMETHasone (Decadron) injection 8 mg Chemotherapy: cytarabine (Cytosar) 6,700 mg in 0.9% NaCl IV 567 mL infusion Social History Social History Tobacco Use ??? Smoking status: Former Packs/day: 1 Types: Cigarettes Start date: 2004 Quit date: 2010 Years since quittin.2 ??? Smokeless tobacco: Never Substance Use Topics ??? Alcohol use: Yes Comment: occasional Family History Family History Family history unknown: Yes Medications SCHEDULED MEDICATIONS: dexAMETHasone (Decadron) 0.1 % ophthalmic suspension 2 drop, Each Eye, 4X/DAY famotidine (Pepcid) tablet 20 mg, Oral, BID heparin lock flush injection 500 Units, Intracatheter, QDAY posaconazole (Noxafil) tablet 300 mg, Oral, QDAY WITH DINNER potassium chloride ER (Klor-Con M) tablet 20 mEq, Oral, QDAY valACYclovir (Valtrex) tablet 500 mg, Oral, BID [COMPLETED] cytarabine (Cytosar) 6,700 mg in 0.9% NaCl IV 597 mL infusion, Intravenous, Once [COMPLETED] ondansetron (Zofran) injection 8 mg, Intravenous, Once CONTINUOUS MEDICATIONS: PRN MEDICATIONS: Or magnesium sulfate 2 g in 50 mL bolus, Intravenous, PRN magnesium sulfate 4 g in 100 mL bolus, Intravenous, PRN ondansetron (disintegrating) (Zofran ODT) tablet 8 mg, Oral, BID PRN ondansetron (Zofran) injection 8 mg, Intravenous, BID PRN prochlorperazine (Compazine) injection 5 mg, Intravenous, q4h PRN prochlorperazine (Compazine) tablet 10 mg, Oral, q4h PRN Allergies No Known Allergies OBJECTIVE Physical Exam Vitals: 12/01/23 1954 12/01/23 2354 BP: 133/77 Pulse: (!) 113 Resp: 18 Temp: 98 ??F (36.7 ??C) SpO2: 98% Weight: 110.3 kg (243 lb 3.2 oz) Wt Readings from Last 3 Encounters: 12/01/23 110.3 kg (243 lb 3.2 oz) 12/01/23 110.1 kg (242 lb 12.8 oz) 11/28/23 110.6 kg (243 lb 12.8 oz) ECO General: AAOx4, no acute distress, pleasant and cooperative Head: normocephalic, atraumatic Eyes: conjunctivae clear, extraocular muscles intact Mouth/Throat: oropharynx clear with no lesions, moist mucous membranes Neck: no jugular venous distension, no cervical lympadenopathy, good range of motion CV: regular rate and rhythm, no murmurs appreciated Resp: good bilateral air entry, no wheezes, no crackles, Abd: normoactive BS, soft, nontender, non distended Extremities: +1 BLLE , no cyanosis Skin: skin color and turgor normal, no rashes or lesions noted Neuro: moving all extremities well, no focal deficits Laboratory Results Recent Labs Component Name 12/01/23 0852 11/28/23 0837 11/26/23 0946 11/10/23 1312 11/07/23 2103 WBC 4.9 3.7* 3.0* - 2.2* RBC 2.67* 2.79* 2.81* - 2.82* HGB 7.7* 7.9* 8.2* - 8.2* HCT 21.9* 22.2* 22.4* - 23.4* MCV 82.0 79.6* 79.7* - 83.0 MCHC 35.2 35.6 36.6* - 35.0 PLTCOUNT 61* 46* 45* - 68* NEUTPCT 52.9 39.9* - - 92.8* LYMPHPCT 17.2 20.2 - - 5.4* NEUTABS 2.58 1.48* 1.09* 1.44* - 2.06 LYMPHABS 0.84* 0.75* 0.75* - 0.12* BASOABS 0.00 0.00 - - 0.00 - = values in this interval not displayed. 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 1. 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 No more IT treatment planned. PLAN: - Continue with C3,D2 HiDAC consolidation - Continue OI ppx with valtrex, posaconazole. - If neutropenic (ANC <500), please start levofloxacin ppx - Continue dexamethasone eye drops for chemical conjunctivitis ppx while whole high dose cytarabine. 2. 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 3. Vaginal Bleeding - Medroxyprogesterone pill discontinued 2/2 concern for IIH. Confirmed with patient that she is nottaking it. 4. Elevated ICP - symptom onset during admission, 10/07/23. LP at the time revealed elevated ipening pressure, but meningitis w/u was unrevealing. - Concerns for IIH - Continue acetazolamide 500 BID 5. Mouth lesions/ Jaw pain - Currently asymptomatic - Can use magic mouthwash if needed, assess daily for potential treatment 6. Dry eyes Current ophthalmology recs: -??Start PFATs at least 6 times daily, AT [facility] OU - Continue diamox 500 BID at this time - F/u with Dr. Hobson 3/19/24 General transfusion parameters (leukoreduced and irradiated blood [...] after completing platelet transfusion to assess response. Thank you for the opportunity to participate in the care of this patient. Hem/Onc consult service will continue to follow closely. Please don't hesitate to contact hem/onc consult fellow via the oil and gas well treatment operator or [employer] if any questions or clarifications. Associated attestation - Abrahan Rivera MD - 12/03/2023 8:43 AM CDT I have seen and examined the patient with the resident. I agree with the findings and plan of care as documented by the resident. Date of resident's note: 12/02/2023 Date of service: 12/02/2023 Abrahan Rivera MD documented in this encounter Miscellaneous Notes * Coding Query - Susana Perez MD - 12/05/2023 11:32 AM CDT DOCUMENTATION CLARIFICATION REQUEST Use the F2 function aguirre to complete the query. Click ???Sign?? to file the note. TO: Dr. Susana Perez FROM: Ines Barr SENIOR QA TESTER, [facility] Email: [email or web address] Patient Name: Sarah Mckeon Please review the clinical information below and clarify the condition.. Choices may include but are not limited to: ??? Pancytopenia due to chemotherapy ??? Pancytopenia due other cause, please specify ??? Other, please specify ??? Unable to determine The medical record reflects the following: o Risk Factors: Chemotherapy, AML o Clinical Findings: Admission for chemotherapy. On admission 11/30: WBC 4.9, RBC 2.67, platelets 61, 12/01: WBC 6.1, RBC 2.54, platelets 64, 12/02: WBC 3.3, RBC 2.44, platelets 54; 12/03: WBC 3.3, RBC 2.44, platelets 48 o Treatment: Lab monitoring PROVIDER RESPONSE (Use F2 to respond) ??? Pancytopenia due to chemotherapy Susana Perez MD Please provide your clinical opinion and findings to support the diagnosis in the progress notes & carry it through into your discharge summary. THIS DOCUMENT IS MAINTAINED A PERMANENT PART OF THE MEDICAL RECORD. documented in this encounter Plan of Treatment Upcoming Encounters Date Type Department Care Team (Late st Contact Info) Description 10/27/2024 10:30 AM ANIMAL ASSISTED THERAPIST Appointment [facility] [address] [place] [address] Hussain Carias MD [address] [place] [phone] Britni Winston, PAChristianne [address] [place] [id number] 11/17/2024 9:00 AM ANIMAL ASSISTED THERAPIST Office Visit [facility] - Ophthalmology [address] [place] [phone] Song Hobson MD [address] [place] [address] [place] [phone] documented as of this encounter Procedures Procedure Name Priority Date/Time Associated Diagnosis Comments CBC W/O DIFFERENTIAL Timed 12/06/2023 8:47 AM CDT TRANSFUSE RED BLOOD CELL LEUKOREDUCED UNIT(S) Routine 12/06/2023 4:05 AM CDT PREPARE RBC LEUKOREDUCED UNIT Routine 12/06/2023 3:54 AM CDT TYPE + SCREEN PANEL STAT 12/06/2023 3 :03 AM CDT CBC W AUTO DIFFERENTIAL Routine 12/05/2023 8:22 PM CDT Acute myeloid leukemia in remission (HCC) COMPREHENSIVE METABOLIC PANEL Routine 12/05/2023 8:22 PM CDT Acute myeloid leukemia in remission (HCC) PHOSPHORUS BLOOD Routine 12/05/2023 8:22 PM CDT Acute myeloid leukemia in remission (HCC) MAGNESIUM BLOOD Routine 12/05/2023 8:22 PM CDT Acute myeloid leukemia in remission (HCC) CBC W AUTO DIFFERENTIAL Routine 12/04/2023 7:46 PM CDT Acute myeloid leukemia in remission (HCC) COMPREHENSIVE METABOLIC PANEL Routine 12/04/2023 7:46 PM CDT Acute myeloid leukemia in remission (HCC) PHOSPHORUS BLOOD Routine 12/04/2023 7:46 PM CDT Acute myeloid leukemia in remission (HCC) MAGNESIUM BLOOD Routine 12/04/2023 7:46 PM CDT Acute myeloid leukemia in remission (HCC) CBC W AUTO DIFFERENTIAL Routine 12/03/2023 8:40 PM CDT Acute myeloid leukemia in remission (HCC) COMPREHENSIVE METABOLIC PANEL Routine 12/03/2023 8:40 PM CDT Acute myeloid leukemia in remission (HCC) PHOSPHORUS BLOOD Routine 12/03/2023 8:40 PM CDT Acute myeloid leukemia in remission (HCC) MAGNESIUM BLOOD Routine 12/03/2023 8:40 PM CDT Acute myeloid leukemia in remission (HCC) TYPE + SCREEN PANEL Routine 12/02/2023 8 :03 PM CDT CBC W AUTO DIFFERENTIAL Routine 12/02/2023 8:03 PM CDT Acute myeloid leukemia in remission (HCC) COMPREHENSIVE METABOLIC PANEL Routine 12/02/2023 8:03 PM CDT Acute myeloid leukemia in remission (HCC) PHOSPHORUS BLOOD Routine 12/02/2023 8:03 PM CDT Acute myeloid leukemia in remission (HCC) MAGNESIUM BLOOD Routine 12/02/2023 8:03 PM CDT Acute myeloid leukemia in remission (HCC) PT EVAL AND TREAT Routine 12/01/2023 8:3 5 PM CDT documented in this encounter Results * (ABNORMAL) CBC W/O DIFFERENTIAL (12/06/2023 8:47 AM CDT) WBC 2.7(L) 4.0 - 10.7 x10E9/L 12/06/2023 9:34 AM [facility] RBC Count 2.98(L) 3.90 - 5.20 x10E12/L 12/06/2023 9:34 AM [facility] Hemoglobin 8.5(L) 11.9 - 15.8 g/dL 12/06/2023 9:34 AM [facility] Hematocrit 23.4(L) 34.8 - 46.1 % 12/06/2023 9:34 AM [facility] MCV 78.5(L) 80.0 - 98.0 fL 12/06/2023 9:34 AM [facility] MCH 28.5 26.7 - 33.6 pg 12/06/2023 9:34 AM [facility] MCHC 36.3 31.7 - 36.3 g/dL 12/06/2023 9:34 AM [facility] RDW-CV 14.3 11.3 - 14.8 % 12/06/2023 9:34 AM [facility] Platelet Count 28(L) 150 - 420 x10E9/L 12/06/2023 9:34 AM [facility] MPV 11.4 7.8 - 11.4 fL 12/06/2023 9:34 AM [facility] Blood BLOOD SPECIMEN / Unknown Venipuncture / Unknown 12/06/2023 8:47 AM CDT 12/06/2023 9:00 AM CDT Seth Cali MD LAB - HEMATOLOGY ORD ASHLANDBLES Performing Organization Address City/[facility]/ZIP Co de Phone Number [facility] [address] [place] [address], [place] [phone] * TRANSFUSE RED BLOOD CELL LEUKOREDUCED UNIT(S) (12/06/2023 7:21 AM CDT) Seth Cali MD NURSING - BLOOD PROD TRANSFUSION * TRANSFUSE RED BLOOD CELL LEUKOREDUCED UNIT(S), 1 Units (12/06/2023 7:21 AM CDT) Seth Cali MD NURSING - BLOOD PROD TRANSFUSION * PREPARE (CROSSMATCH) RBC UNIT(S), 1 Units (12/06/2023 3:54 AM CDT) Unit Description AS1 LR PRBC IRR [facility] Unit ABO O [facility] B[facility] Unit Rh POS [facility] Product Number R04 [facility] B LOOD BANK LAB Unit Donor # [id number] [facility] Unit Status transfused [facility] BLO OD BANK LAB Product Code [id number] [facility] BLO OD BANK LAB Blood Type Barcode 5100 [facility] Expiration Date [id number] S BLOOD BANK LAB Blood Bank BLOOD SPECIMEN / Unknown 12/06/2023 3:12 AM CDT Seth Cali MD LAB - BLOOD BANK ORD ERABLES [facility] [address] [place] [address], [place] [phone] * TYPE + SCREEN PANEL (12/06/2023 3:03 AM CDT) Antibody Screen NEG 3:51 AM CDT [facility] ABO Rh O POS 12/06/2023 3:51 AM CDT [facility] Blood Bank BLOOD SPECIMEN / Unknown Venipuncture / Unknown 12/06/2023 3:03 AM CDT 12/06/2023 3:12 AM CDT Seth Cali MD LAB - BLOOD BANK ORD ERABLES Performing Organization Address City/[facility]/ZIP Co de Phone Number [facility] [address] [place] [address], [facility] [phone] * (ABNORMAL) PHOSPHORUS BLOOD (12/05/2023 8:22 PM CDT) Phosphorus 2.7(L) 2.9 - 5.1 mg/dL 12/05/2023 9:23 PM CDT [facility] Blood BLOOD SPECIMEN / Unknown Venipuncture / Unknown 12/05/2023 8:22 PM CDT 12/05/2023 8:53 PM CDT Yoly Steward APRN-PULP DRIER FIRER LAB - CHEMIS TRY ORDERABLES Performing Organization Address [facility]/ZIP Co de Phone Number [address] [address], [facility] [phone] * MAGNESIUM BLOOD (12/05/2023 8:22 PM CDT) Pathologist [facility] [place] Magnesium 2.4 1.6 - 2.6 mg/dL 12/05/2023 9:23 PM CDT [facility] Blood BLOOD SPECIMEN / Unknown Venipuncture / Unknown 12/05/2023 8:22 PM CDT 12/05/2023 8:53 PM CDT Yoly Steward HOLLOW CORE DOOR FRAME ASSEMBLER-P[employer]ER LAB - CHEMIS TRY ORDERABLES Performing Organization Address City/[facility]/ZIP Co de Phone Number [address] [address], [facility] [phone] * (ABNORMAL) COMPREHENSIVE METABOLIC PANEL (12/05/2023 8:22 PM CDT) BUN 18 7 - 26 mg/dL 12/05/2023 9:23 PM CDT [facility] Creatinine 0.71 0.56 - 0.96 mg/dL 12/05/2023 9:23 PM [facility] Sodium 138 136 - 145 mmol/L 12/05/2023 9:23 PM [facility] Potassium 4.1 3.5 - 4.5 mmol/L 12/05/2023 9:23 PM [facility] Chloride 114(H) 98 - 107 mmol/L 12/05/2023 9:23 PM [facility] CO2 16(L) 22 - 29 mmol/L 12/05/2023 9:23 PM [facility] Glucose 293(H) 70 - 115 mg/dL 12/05/2023 9:23 PM [facility] Calcium 9.0 8.4 - 10.2 mg/dL 12/05/2023 9:23 PM [facility] Protein Total 6.4 6.0 - 8.3 g/dL 12/05/2023 9:23 PM [facility] Albumin 3.4 3.4 - 5.0 g/dL 12/05/2023 9:23 PM [facility] Bilirubin Total 0.4 0.2 - 1.2 mg/dL 12/05/2023 9:23 PM [facility] Alkaline Phosphatase 68 40 - 150 U/L 12/05/2023 9:23 PM [facility] ALT 21 5 - 55 U/L 12/05/2023 9:23 PM [facility] AST 8 5 - 34 U/L 12/05/2023 9:23 PM [facility] Anion Gap 8 6 - 16 12/05/2023 9:23 PM [facility] BUN/Creatinine Ratio 25(H) 7 - 23 12/05/2023 9:23 PM [facility] Osmolality Calculated 299(H) 275 - 295 mOsm/kg 12/05/2023 9:23 PM [facility] Albumin/Globulin Ratio 1.1 1.1 - 2.3 12/05/2023 9:23 PM [facility] eGFR by CKD-EPI >90 >=90 mL/min/1.7 3 m2 12/05/2023 9:23 PM [facility] Blood BLOOD SPECIMEN / Unknown Venipuncture / Unknown 12/05/2023 8:22 PM CDT 12/05/2023 8:53 PM CDT Yoly Garzon Bin HOLLOW CORE DOOR FRAME ASSEMBLER-P[employer]ER FIRER LAB - CHEMIS TRY ORDERABLES [facility] [address] [place] [address], [facility] [phone] * (ABNORMAL) CBC W AUTO DIFFERENTIAL (12/05/2023 8:22 PM CDT) WBC 2.1(L) 4.0 - 10.7 x10E9/L 12/05/2023 9:17 PM [facility] RBC Count 2.37(L) 3.90 - 5.20 x10E12/L 12/05/2023 9:17 PM [facility] Hemoglobin 6.8(L) 11.9 - 15.8 g/dL 12/05/2023 9:17 PM [facility] Hematocrit 19.0(L) 34.8 - 46.1 % 12/05/2023 9:17 PM [facility] MCV 80.2 80.0 - 98.0 fL 12/05/2023 9:17 PM [facility] MCH 28.7 26.7 - 33.6 pg 12/05/2023 9:17 PM [facility] MCHC 35.8 31.7 - 36.3 g/dL 12/05/2023 9:17 PM [facility] RDW-CV 14.5 11.3 - 14.8 % 12/05/2023 9:17 PM [facility] Platelet Count 33(L) 150 - 420 x10E9/L 12/05/2023 9:17 PM [facility] MPV 12.3(H) 7.8 - 11.4 fL 12/05/2023 9:17 PM [facility] Preliminary Absolute Neutrophil 1.91 1.60 - 7.50 x10E9/L 12/05/2023 9:17 PM [facility] Comment:Preliminary ANC pend ing manual confirmation Preliminary ANC pending manual confirmation Neutrophil % 92.7(H) 41.0 - 74.0 % 12/05/2023 9:17 PM [facility] Lymphocyte % 5.8(L) 17.0 - 47.0 % 12/05/2023 9:17 PM [facility] Monocyte % 0.5(L) 3.0 - 11.0 % 12/05/2023 9:17 PM [facility] Eosinophil % 0.0 0.0 - 7.0 % 12/05/2023 9:17 PM [facility] Basophil % 0.0 0.0 - 1.6 % 12/05/2023 9:17 PM [facility] Immature Granulocytes % 1.0 0.0 - 1.0 % 12/05/2023 9:17 PM [facility] Neutrophil Absolute 1.91 1.60 - 7.50 x10E9/L 12/05/2023 9:17 PM [facility] Lymphocyte Absolute 0.12(L) 1.00 - 4.40 x10E9/L 12/05/2023 9:17 PM [facility] Monocyte Absolute 0.01(L) 0.15 - 1.00 x10E9/L 12/05/2023 9:17 PM [facility] Eosinophil Absolute 0.00 0.00 - 0.60 x10E9/L 12/05/2023 9:17 PM [facility] Basophil Absolute 0.00 0.00 - 0.13 x10E9/L 12/05/2023 9:17 PM [facility] Blood BLOOD SPECIMEN / Unknown Venipuncture / Unknown 12/05/2023 8:22 PM CDT 12/05/2023 8:52 PM CDT Yoly Steward HOLLOW CORE DOOR FRAME ASSEMBLER-P[employer]ER FIRER LAB - HEMATO LOGY ORDERABLES [facility] [address] [place] [address], [facility] [phone] * (ABNORMAL) PHOSPHORUS BLOOD (12/04/2023 7:46 PM CDT) Phosphorus 2.5(L) 2.9 - 5.1 mg/dL 12/04/2023 8:29 PM CDT [facility] Blood BLOOD SPECIMEN / Unknown Venipuncture / Unknown 12/04/2023 7:46 PM CDT 12/04/2023 8:01 PM CDT Yoly Steward HOLLOW CORE DOOR FRAME ASSEMBLER-PUL[employer]RIER FIRER LAB - CHEMIS TRY ORDERABLES Performing Organization Address City/[facility]/ZIP Co de Phone Number [address] [address], [facility] [phone] * MAGNESIUM BLOOD (12/04/2023 7:46 PM CDT) Pathologist [facility] [place] Magnesium 2.4 1.6 - 2.6 mg/dL 12/04/2023 8:29 PM CDT [facility] Blood BLOOD SPECIMEN / Unknown Venipuncture / Unknown 12/04/2023 7:46 PM CDT 12/04/2023 8:01 PM CDT Yoly Gutierrezgarrett HOLLOW CORE DOOR FRAME ASSEMBLER-P[employer]P D[employer]ER FIRER LAB - CHEMIS TRY ORDERABLES Performing Organization Address [facility]/ZIP Co de Phone Number [address] [address], [facility] [phone] * (ABNORMAL) COMPREHENSIVE METABOLIC PANEL (12/04/2023 7:46 PM CDT) BUN 17 7 - 26 mg/dL 12/04/2023 8:29 PM CDT [facility] Creatinine 0.82 0.56 - 0.96 mg/dL 12/04/2023 8:29 PM CDT [facility] Sodium 137 136 - 145 mmol/L 12/04/2023 8:29 PM CDT [facility] Potassium 3.8 3.5 - 4.5 mmol/L 12/04/2023 8:29 PM CDT [facility] Chloride 114(H) 98 - 107 mmol/L 12/04/2023 8:29 PM CDT [facility] CO2 15(L) 22 - 29 mmol/L 12/04/2023 8:29 PM [facility] Glucose 256(H) 70 - 115 mg/dL 12/04/2023 8:29 PM [facility] Calcium 8.9 8.4 - 10.2 mg/dL 12/04/2023 8:29 PM [facility] Protein Total 6.8 6.0 - 8.3 g/dL 12/04/2023 8:29 PM [facility] Albumin 3.6 3.4 - 5.0 g/dL 12/04/2023 8:29 PM [facility] Bilirubin Total 0.5 0.2 - 1.2 mg/dL 12/04/2023 8:29 PM [facility] Alkaline Phosphatase 69 40 - 150 U/L 12/04/2023 8:29 PM [facility] ALT 27 5 - 55 U/L 12/04/2023 8:29 PM [facility] AST 10 5 - 34 U/L 12/04/2023 8:29 PM [facility] Anion Gap 8 6 - 16 12/04/2023 8:29 PM [facility] BUN/Creatinine Ratio 21 7 - 23 12/04/2023 8:29 PM [facility] Osmolality Calculated 294 275 - 295 mOsm/kg 12/04/2023 8:29 PM [facility] Albumin/Globulin Ratio 1.1 1.1 - 2.3 12/04/2023 8:29 PM [facility] eGFR by CKD-EPI >90 >=90 mL/min/1.7 3 m2 12/04/2023 8:29 PM [facility] Blood BLOOD SPECIMEN / Unknown Venipuncture / Unknown 12/04/2023 7:46 PM CDT 12/04/2023 8:01 PM CDT Yoly Steward HOLLOW [employer] DOOR FRAME ASSEMBLER-PULP DRIER FIRER LAB - CHEMIS TRY ORDERABLES [facility] [address] [place] [address], [facility] [phone] * (ABNORMAL) CBC W AUTO DIFFERENTIAL (12/04/2023 7:46 PM CDT) [facility] WBC 3.3(L) 4.0 - 10.7 x10E9/L 12/04/2023 8:55 PM [facility] RBC Count 2.44(L) 3.90 - 5.20 x10E12/L 12/04/2023 8:55 PM [facility] Hemoglobin 7.2(L) 11.9 - 15.8 g/dL 12/04/2023 8:55 PM [facility] Hematocrit 19.9(L) 34.8 - 46.1 % 12/04/2023 8:55 PM [facility] MCV 81.6 80.0 - 98.0 fL 12/04/2023 8:55 PM [facility] MCH 29.5 26.7 - 33.6 pg 12/04/2023 8:55 PM [facility] MCHC 36.2 31.7 - 36.3 g/dL 12/04/2023 8:55 PM [facility] RDW-CV 14.6 11.3 - 14.8 % 12/04/2023 8:55 PM [facility] Platelet Count 48(L) 150 - 420 x10E9/L 12/04/2023 8:55 PM [facility] MPV 11.4 7.8 - 11.4 fL 12/04/2023 8:55 PM [facility] Preliminary Absolute Neutrophil 2.93 1.60 - 7.50 x10E9/L 12/04/2023 8:55 PM [facility] Comment:Preliminary ANC pend ing manual confirmation Neutrophil % 89.0(H) 41.0 - 74.0 % 12/04/2023 8:55 PM [facility] Lymphocyte % 6.7(L) 17.0 - 47.0 % 12/04/2023 8:55 PM [facility] Monocyte % 4.0 3.0 - 11.0 % 12/04/2023 8:55 PM [facility] Eosinophil % 0.0 0.0 - 7.0 % 12/04/2023 8:55 PM [facility] Basophil % 0.0 0.0 - 1.6 % 12/04/2023 8:55 PM CDT [facility] Immature Granulocytes % 0.3 0.0 - 1.0 % 12/04/2023 8:55 PM CDT [facility] Neutrophil Absolute 2.93 1.60 - 7.50 x10E9/L 12/04/2023 8:55 PM CDT [facility] Lymphocyte Absolute 0.22(L) 1.00 - 4.40 x10E9/L 12/04/2023 8:55 PM CDT [facility] Monocyte Absolute 0.13(L) 0.15 - 1.00 x10E9/L 12/04/2023 8:55 PM CDT [facility] Eosinophil Absolute 0.00 0.00 - 0.60 x10E9/L 12/04/2023 8:55 PM CDT [facility] Basophil Absolute 0.00 0.00 - 0.13 x10E9/L 12/04/2023 8:55 PM CDT [facility] Blood BLOOD SPECIMEN / Unknown Venipuncture / Unknown 12/04/2023 7:46 PM CDT 12/04/2023 8:01 PM CDT Yoly Steward APRN-[facility] - HEMATO LOGY ORDERABLES [address] [id number], [facility] [phone] * PHOSPHORUS BLOOD (12/03/2023 8:40 PM CDT) Phosphorus 3.1 2.9 - 5.1 mg/dL 12/03/2023 9:21 PM CDT [facility] Blood BLOOD SPECIMEN / Unknown Venipuncture / Unknown 12/03/2023 8:40 PM CDT 12/03/2023 8:52 PM CDT Yoly Steward APRN-[facility] - CHEMIS TRY ORDERABLES [address] [address], [facility] [phone] * MAGNESIUM BLOOD (12/03/2023 8:40 PM CDT) Magnesium 2.5 1.6 - 2.6 mg/dL 12/03/2023 9:21 PM [facility] Blood BLOOD SPECIMEN / Unknown Venipuncture / Unknown 12/03/2023 8:40 PM CDT 12/03/2023 8:52 PM CDT Yoly Steward [employer]-[facility] - CHEMIS TRY ORDERABLES [facility] [address] [place] [phone], [facility] [phone] * (ABNORMAL) COMPREHENSIVE METABOLIC PANEL (12/03/2023 8:40 PM CDT) BUN 17 7 - 26 mg/dL 12/03/2023 9:21 PM [facility] Creatinine 0.82 0.56 - 0.96 mg/dL 12/03/2023 9:21 PM [facility] Sodium 138 136 - 145 mmol/L 12/03/2023 9:21 PM [facility] Potassium 4.4 3.5 - 4.5 mmol/L 12/03/2023 9:21 PM [facility] Chloride 114(H) 98 - 107 mmol/L 12/03/2023 9:21 PM [facility] CO2 15(L) 22 - 29 mmol/L 12/03/2023 9:21 PM [facility] Glucose 285(H) 70 - 115 mg/dL 12/03/2023 9:21 PM [facility] Calcium 9.1 8.4 - 10.2 mg/dL 12/03/2023 9:21 PM [facility] Protein Total 6.8 6.0 - 8.3 g/dL 12/03/2023 9:21 PM [facility] Albumin 3.5 3.4 - 5.0 g/dL 12/03/2023 9:21 PM [facility] Bilirubin Total 0.4 0.2 - 1.2 mg/dL 12/03/2023 9:21 PM [facility] Alkaline Phosphatase 72 40 - 150 U/L 12/03/2023 9:21 PM [facility] ALT 34 5 - 55 U/L 12/03/2023 9:21 PM [facility] AST 12 5 - 34 U/L 12/03/2023 9:21 PM [facility] Anion Gap 9 6 - 16 12/03/2023 9:21 PM [facility] BUN/Creatinine Ratio 21 7 - 23 12/03/2023 9:21 PM [facility] Osmolality Calculated 298(H) 275 - 295 mOsm/kg 12/03/2023 9:21 PM [facility] Albumin/Globulin Ratio 1.1 1.1 - 2.3 12/03/2023 9:21 PM [facility] eGFR by CKD-EPI >90 >=90 mL/min/1.7 3 m2 12/03/2023 9:21 PM [facility] Blood BLOOD SPECIMEN / Unknown Venipuncture / Unknown 12/03/2023 8:40 PM CDT 12/03/2023 8:52 PM CDT Yoly Steward [employer]-P[employer]P [employer] LAB - CHEMIS TRY ORDERABLES Performing Organization Address [facility]/State/[facility] Co de Phone Number [facility] [address] [place] [phone], [facility] [phone] * (ABNORMAL) CBC W AUTO DIFFERENTIAL (12/03/2023 8:40 PM CDT) WBC 3.3(L) 4.0 - 10.7 x10E9/L 12/03/2023 9:18 PM [facility] RBC Count 2.44(L) 3.90 - 5.20 x10E12/L 12/03/2023 9:18 PM [facility] Hemoglobin 7.1(L) 11.9 - 15.8 g/dL 12/03/2023 9:18 PM [facility] Hematocrit 20.3(L) 34.8 - 46.1 % 12/03/2023 9:18 PM [facility] MCV 83.2 80.0 - 98.0 fL 12/03/2023 9:18 PM [facility] MCH 29.1 26.7 - 33.6 pg 12/03/2023 9:18 PM [facility] MCHC 35.0 31.7 - 36.3 g/dL 12/03/2023 9:18 PM [facility] RDW-CV 14.7 11.3 - 14.8 % 12/03/2023 9:18 PM [facility] Platelet Count 54(L) 150 - 420 x10E9/L 12/03/2023 9:18 PM [facility] MPV 11.7(H) 7.8 - 11.4 fL 12/03/2023 9:18 PM [facility] Preliminary Absolute Neutrophil 2.85 1.60 - 7.50 x10E9/L 12/03/2023 9:18 PM [facility] Comment:Preliminary ANC pend ing manual confirmation Neutrophil % 87.8(H) 41.0 - 74.0 % 12/03/2023 9:18 PM [facility] Lymphocyte % 5.8(L) 17.0 - 47.0 % 12/03/2023 9:18 PM [facility] Monocyte % 5.5 3.0 - 11.0 % 12/03/2023 9:18 PM [facility] Eosinophil % 0.0 0.0 - 7.0 % 12/03/2023 9:18 PM [facility] Basophil % 0.3 0.0 - 1.6 % 12/03/2023 9:18 PM [facility] Immature Granulocytes % 0.6 0.0 - 1.0 % 12/03/2023 9:18 PM [facility] Neutrophil Absolute 2.85 1.60 - 7.50 x10E9/L 12/03/2023 9:18 PM [facility] Lymphocyte Absolute 0.19(L) 1.00 - 4.40 x10E9/L 12/03/2023 9:18 PM [facility] Monocyte Absolute 0.18 0.15 - 1.00 x10E9/L 12/03/2023 9:18 PM CDT [facility] Eosinophil Absolute 0.00 0.00 - 0.60 x10E9/L 12/03/2023 9:18 PM CDT [facility] Basophil Absolute 0.01 0.00 - 0.13 x10E9/L 12/03/2023 9:18 PM CDT [facility] Blood BLOOD SPECIMEN / Unknown Venipuncture / Unknown 12/03/2023 8:40 PM CDT 12/03/2023 8:52 PM CDT Yoly Reddus BIRDN-PULP DRIER [employer]ER LAB - HEMATO LOGY ORDERABLES [address] [phone], [facility] [phone] * PHOSPHORUS BLOOD (12/02/2023 8:03 PM CDT) Phosphorus 3.4 2.9 - 5.1 mg/dL 12/02/2023 8:49 PM CDT [facility] Blood BLOOD SPECIMEN / Unknown Venipuncture / Unknown 12/02/2023 8:03 PM CDT 12/02/2023 8:15 PM CDT Yoly Gutierrezgarrett [employer] LAB - CHEMIS TRY ORDERABLES [address] [phone], [facility] [phone] * MAGNESIUM BLOOD (12/02/2023 8:03 PM CDT) Magnesium 2.4 1.6 - 2.6 mg/dL 12/02/2023 8:49 PM CDT [facility] Blood BLOOD SPECIMEN / Unknown Venipuncture / Unknown 12/02/2023 8:03 PM CDT 12/02/2023 8:15 PM CDT Yoly Duran Gutierrezgarrett [employer] FRAME AS[employer]ER-P[employer] LAB - CHEMIS TRY ORDERABLES [facility] [address] [place] [address], [facility] [phone] * (ABNORMAL) COMPREHENSIVE METABOLIC PANEL (12/02/2023 8:03 PM [facility]) BUN 11 7 - 26 mg/dL 12/02/2023 8:49 PM [facility] Creatinine 0.73 0.56 - 0.96 mg/dL 12/02/2023 8:49 PM [facility] Sodium 139 136 - 145 mmol/L 12/02/2023 8:49 PM [facility] Potassium 4.1 3.5 - 4.5 mmol/L 12/02/2023 8:49 PM [facility] Chloride 112(H) 98 - 107 mmol/L 12/02/2023 8:49 PM [facility] CO2 19(L) 22 - 29 mmol/L 12/02/2023 8:49 PM [facility] Glucose 186(H) 70 - 115 mg/dL 12/02/2023 8:49 PM [facility] Calcium 9.8 8.4 - 10.2 mg/dL 12/02/2023 8:49 PM [facility] Protein Total 7.0 6.0 - 8.3 g/dL 12/02/2023 8:49 PM [facility] Albumin 3.6 3.4 - 5.0 g/dL 12/02/2023 8:49 PM [facility] Bilirubin Total 0.5 0.2 - 1.2 mg/dL 12/02/2023 8:49 PM [facility] Alkaline Phosphatase 73 40 - 150 U/L 12/02/2023 8:49 PM [facility] ALT 44 5 - 55 U/L 12/02/2023 8:49 PM [facility] AST 24 5 - 34 U/L 12/02/2023 8:49 PM [facility] Anion Gap 8 6 - 16 12/02/2023 8:49 PM [facility] BUN/Creatinine Ratio 15 7 - 23 12/02/2023 8:49 PM [facility] Osmolality Calculated 292 275 - 295 mOsm/kg 12/02/2023 8:49 PM [facility] Albumin/Globulin Ratio 1.1 1.1 - 2.3 12/02/2023 8:49 PM [facility] eGFR by CKD-EPI >90 >=90 mL/min/1.7 3 m2 12/02/2023 8:49 PM [facility] Blood BLOOD SPECIMEN / Unknown Venipuncture / Unknown 12/02/2023 8:03 PM CDT 12/02/2023 8:15 PM CDT Yoly Steward [employer] FRAME ASSEMBLER-P[employer]ER LAB - CHEMIS TRY ORDERABLES [facility] [address] [place] [phone], [facility] [phone] * (ABNORMAL) CBC W AUTO DIFFERENTIAL (12/02/2023 8:03 PM T) WBC 6.1 4.0 - 10.7 x10E9/L 12/02/2023 8:35 PM [facility] RBC Count 2.54(L) 3.90 - 5.20 x10E12/L 12/02/2023 8:35 PM [facility] Hemoglobin 7.4(L) 11.9 - 15.8 g/dL 12/02/2023 8:35 PM [facility] Hematocrit 21.1(L) 34.8 - 46.1 % 12/02/2023 8:35 PM [facility] MCV 83.1 80.0 - 98.0 fL 12/02/2023 8:35 PM [facility] MCH 29.1 26.7 - 33.6 pg 12/02/2023 8:35 PM [facility] MCHC 35.1 31.7 - 36.3 g/dL 12/02/2023 8:35 PM [facility] RDW-CV 14.9(H) 11.3 - 14.8 % 12/02/2023 8:35 PM [facility] Platelet Count 64(L) 150 - 420 x10E9/L 12/02/2023 8:35 PM [facility] MPV 11.7(H) 7.8 - 11.4 fL 12/02/2023 8:35 PM [facility] Preliminary Absolute Neutrophil 4.47 1.60 - 7.50 x10E9/L 12/02/2023 8:35 PM [facility] Comment:Preliminary ANC pend ing manual confirmation Neutrophil % 72.9 41.0 - 74.0 % 12/02/2023 8:35 PM [facility] Lymphocyte % 6.5(L) 17.0 - 47.0 % 12/02/2023 8:35 PM [facility] Monocyte % 19.9(H) 3.0 - 11.0 % 12/02/2023 8:35 PM [facility] Eosinophil % 0.0 0.0 - 7.0 % 12/02/2023 8:35 PM [facility] Basophil % 0.0 0.0 - 1.6 % 12/02/2023 8:35 PM [facility] Immature Granulocytes % 0.7 0.0 - 1.0 % 12/02/2023 8:35 PM [facility] Neutrophil Absolute 4.47 1.60 - 7.50 x10E9/L 12/02/2023 8:35 PM [facility] Lymphocyte Absolute 0.40(L) 1.00 - 4.40 x10E9/L 12/02/2023 8:35 PM [facility] Monocyte Absolute 1.22(H) 0.15 - 1.00 x10E9/L 12/02/2023 8:35 PM [facility] Eosinophil Absolute 0.00 0.00 - 0.60 x10E9/L 12/02/2023 8:35 PM [facility] Basophil Absolute 0.00 0.00 - 0.13 x10E9/L 12/02/2023 8:35 PM [facility] Blood BLOOD SPECIMEN / Unknown Venipuncture / Unknown 12/02/2023 8:03 PM CDT 12/02/2023 8:15 PM CDT Yoly Steward [employer] FRAME ASSEM[employer]ER-P[employer] LAB - HEMATO LOGY ORDERABLES [facility] [address] [place] [address], [place] [phone] * TYPE + SCREEN PANEL (12/02/2023 8:03 PM CDT) Antibody Screen NEG 10:04 PM CDT [facility] ABO Rh O POS 12/02/2023 10:04 PM CDT [facility] Blood Bank BLOOD SPECIMEN / Unknown Venipuncture / Unknown 12/02/2023 8:03 PM CDT 12/02/2023 9:23 PM CDT Hussain Carias MD LAB - BLOOD BANK ORD ERABLES Performing Organization Address City/[facility]/ZIP Co de Phone Number [facility] [address] [place] [address], [place] [phone] documented in this encounter Visit Diagnoses Diagnosis 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 Pancytopenia (HCC) Pseudotumor cerebri Benign intracranial hypertension documented in this encounter Administered Medications Inactive Administered Medications - up to 3 most recent administrations Medication Order MAR Action Action Date Dose Rate Site 0.9% NaCl infusion rate and volume at 20 mL/hr, 250 mL, ONCE PRN, Starting on 12/06/23 at 0016, Until 12/06/23 at 1238, Normal Saline flush bag for blood and blood product administration 0.9% NaCl injection 1-10 mL 1-10 mL, Intracatheter, PRN, Other, peripheral line flush, Starting on 12/02/23 at 0926, Until 12/06/23 at 1238, Flush peripheral IV catheter with 1-10 mL of normal saline before and after medications and prn to clear blood from the line or to verify patency. 0.9% NaCl injection 1-10 mL 1-10 mL, Intracatheter, PRN, Other, peripheral line flush, Starting on 12/06/23 at 0016, Until 12/06/23 at 1238, Flush peripheral IV catheter with 1-10 mL of normal saline before and after medications and prn to clear blood from the line or to verify patency. 0.9% NaCl injection 3 mL 3 mL, Intracatheter, EVERY 8 HOURS, First dose on Fri12/02/23 at 1000, Until Discontinued, Flush peripheral IV catheter with 3 mL of normal saline every 8 hours. $ Given 12/06/2023 7:17 AM CDT 3 mL $ Given 12/05/2023 8:21 PM CDT 3 mL $ Given 12/05/2023 4:25 PM CDT 3 mL 0.9% NaCl injection 3 mL 3 mL, Intracatheter, EVERY 8 HOURS, First dose on Fri12/06/23 at 0100, Until Discontinued, Flush peripheral IV catheter with 3 mL of normal saline every 8 hours. $ Given 12/06/2023 7:16 AM CDT 3 mL $ Given 12/06/2023 3:06 AM CDT 3 mL acetaZOLAMIDE (Diamox) tablet 250 mg 250 mg, Oral, 2 TIMES DAILY, First dose (after last modification) on Fri12/04/23 at 2100, Until Discontinued $ Given 12/06/2023 9:17 AM CDT 250 mg $ Given 12/05/2023 8:20 PM CDT 250 mg $ Given 12/05/2023 8:28 AM CDT 250 mg acetaZOLAMIDE (Diamox) tablet 500 mg 500 mg, Oral, 2 TIMES DAILY, First dose on Fri12/02/23 at 1130, Until Discontinued $ Given 12/04/2023 8:17 AM CDT 500 mg $ Given 12/03/2023 8:41 PM CDT 500 mg $ Given 12/03/2023 8:36 AM CDT 500 mg artificial tears ophthalmic solution 1 drop 1 drop, Each Eye, 6 TIMES DAILY WHILE AWAKE, First dose on Fri12/02/23 at 1630, Until Discontinued $ Given 12/06/2023 9:20 AM CDT 1 drop $ Given 12/06/2023 7:17 AM CDT 1 drop $ Given 12/05/2023 8:20 PM CDT 1 drop cytarabine (Cytosar) 6,700 mg in 0.9% NaCl IV 597 mL infusion 6,700 mg (rounded from 6,720 mg = 3,000 mg/m2 ? 2.24 m2 Treatment Plan BSA from Recorded weight), at 199 mL/hr, Administer over 3 Hours, Intravenous, ONCE, 1 dose, On Fri12/01/23 at 2215, . PREMEDICATION(s): should be administered at least 30 minutes prior to infusion $ New Bag/Syringe 12/01/2023 10:05 PM CDT 6,700 mg 199 mL/hr cytarabine (Cytosar) 6,700 mg in 0.9% NaCl IV 597 mL infusion 6,700 mg (rounded from 6,720 mg = 3,000 mg/m2 ? 2.24 m2 Treatment Plan BSA from Recorded weight), at 199 mL/hr, Administer over 3 Hours, Intravenous, EVERY 12 HOURS, 2 doses, First dose on Fri12/03/23 at 0900, Last dose on Fri12/03/23 at 2100, . PREMEDICATION(s): should be administered at least 30 minutes prior to infusion $ New Bag/Syringe 12/03/2023 9:17 PM CDT 6,700 mg 199 mL/hr $ New Bag/Syringe 12/03/2023 9:12 AM CDT 6,700 mg 199 mL /hr cytarabine (Cytosar) 6,700 mg in 0.9% NaCl IV 597 mL infusion 6,700 mg (rounded from 6,720 mg = 3,000 mg/m2 ? 2.24 m2 Treatment Plan BSA from Recorded weight), at 199 mL/hr, Administer over 3 Hours, Intravenous, EVERY 12 HOURS, 2 doses, First dose on Fri12/05/23 at 0600, Last dose on Fri12/05/23 at 1800, . PREMEDICATION(s): should be administered at least 30 minutes prior to infusion $ New Bag/Syringe 12/05/2023 6:44 PM CDT 6,700 mg 199 mL/hr $ New Bag/Syringe 12/05/2023 6:26 AM CDT 6,700 mg 199 mL /hr dexAMETHasone (Decadron) 0.1 % ophthalmic suspension 2 drop 2 drop, Each Eye, FOUR TIMES DAILY, 32 doses, First dose on Fri12/01/23 at 2000, Last dose on Fri12/09/23 at 1400, Shake well before using. $ Given 12/06/2023 9:20 AM CDT 2 drops $ Given 12/06/2023 7:17 AM CDT 2 drops $ Given 12/05/2023 8:22 PM CDT 2 drops dexAMETHasone (Decadron) injection 8 mg 8 mg, Intravenous, ONCE, 1 dose, On Fri12/03/23 at 0830, Administer 30 minutes prior to chemotherapy ONLY IF patient did not take oral dexamethasone. $ Given 12/03/2023 8:36 AM CDT 8 mg dexAMETHasone (Decadron) injection 8 mg 8 mg, Intravenous, ONCE, 1 dose, On Fri12/05/23 at 0530, Administer 30 minutes prior to chemotherapy ONLY IF patient did not take oral dexamethasone. $ Given 12/05/2023 5:47 AM CDT 8 mg famotidine (Pepcid) tablet 20 mg 20 mg, Oral, 2 TIMES DAILY, 60 doses, First dose on Fri12/01/23 at 2100, Last dose on Fri12/31/23 at 0900 $ Given 12/06/2023 8:48 AM CDT 20 mg $ Given 12/05/2023 8:20 PM CDT 20 mg $ Given 12/05/2023 8:28 AM CDT 20 mg heparin injection 7,500 Units 7,500 Units, Subcutaneous, EVERY 8 HOURS, First dose on Fri12/03/23 at 1730, Until Discontinued $ Given 12/04/2023 6:39 PM CDT 7,500 Units Abd Left Upper Quadrant $ Given 12/04/2023 10:23 AM CDT 7,500 Units Abd Left Lower Quadrant $ Given 12/03/2023 5:20 PM CDT 7,500 Units A bdominal Tissue heparin lock flush injection 500 Units 500 Units, Intracatheter, DAILY, First dose on Fri12/02/23 at 2100, Until Discontinued, For line dancer $ Given 12/06/2023 3:06 AM CDT 500 Units $ Given 12/04/2023 7:46 PM CDT 500 Units $ Given 12/03/2023 9:14 PM CDT 500 Units magnesium sulfate 2 g in 50 mL bolus 2 g, at 25 mL/hr, Administer over 120 Minutes, Intravenous, PRN, serum magnesium 1.1 mg/dL to 1.4 mg/dL, Starting on Fri12/01/23 at 2031, Until Fri12/06/23 at 1238, Infuse at 1 gm/hr magnesium sulfate 4 g in 100 mL bolus 4 g, at 25 mL/hr, Administer over 240 Minutes, Intravenous, PRN, serum magnesium LESS than 1.1 mg/dL, Starting on Fri12/01/23 at 2031, Until 12/06/23 at 1238, Infuse at 1 gm/hr ondansetron (disintegrating) (Zofran ODT) tablet 8 mg 8 mg, Oral, 2 TIMES DAILY PRN, Nausea/Vomiting, Starting on Fri12/01/23 at 1752, Until 12/06/23 at 1238, Second line therapy if failed prochlorperazine with continued loss of appetite and > 3 episodes of vomiting. Do not administer if patient received palonosetron within 48 hours or exceed ondansetron 32 mg in 24 hours. Use IV if patient unable to tolerate oral administration. Dissolved orally on tongue ondansetron (Zofran) injection 8 mg 8 mg, Intravenous, ONCE, 1 dose, On Fri12/01/23 at 2145, Administer over 2 to 5 minutes. Administer 30 minutes prior to chemotherapy. $ Given 12/01/2023 9:27 PM CDT 8 mg ondansetron (Zofran) injection 8 mg 8 mg, Intravenous, 2 TIMES DAILY PRN, Nausea/Vomiting, Starting on Fri12/01/23 at 1752, Until 12/06/23 at 1238, Administer over 2 to 5 minutes. Second [...] 12 HOURS, 2 doses, First dose on Fri12/03/23 at 0830, Last dose on Fri12/03/23 at 2030, Administer over 2 to 5 minutes. Administer 30 minutes prior to chemotherapy. $ Given 12/03/2023 8:35 PM CDT 8 mg $ Given 12/03/2023 8:36 AM CDT 8 mg ondansetron (Zofran) injection 8 mg 8 mg, Intravenous, EVERY 12 HOURS, 2 doses, First dose on Fri12/05/23 at 0530, Last dose on Fri12/05/23 at 1730, Administer over 2 to 5 minutes. Administer 30 minutes prior to chemotherapy. $ Given 12/05/2023 5:25 PM CDT 8 mg $ Given 12/05/2023 5:49 AM CDT 8 mg posaconazole (Noxafil) tablet 300 mg 300 mg, Oral, DAILY WITH DINNER, First dose on Fri12/02/23 at 1800, Until Discontinued, Swallow whole. Do not crush, chew, or cut in half., Indication for anti-infective therapy: Chronic prophylaxis $ Given 12/05/2023 5:24 PM CDT 300 mg $ Given 12/04/2023 5:37 PM CDT 300 mg $ Given 12/03/2023 4:54 PM CDT 300 mg potassium chloride ER (Klor-Con M) tablet 20 mEq 20 mEq, Oral, DAILY, First dose on Fri12/02/23 at 1700, Until Discontinued, Swallow whole, do not crush, chew or break. Do not crush or chew. $ Given 12/06/2023 8:48 AM CDT 20 mEq $ Given 12/05/2023 8:28 AM CDT 20 mEq $ Given 12/04/2023 8:16 AM CDT 20 mEq prochlorperazine (Compazine) injection 5 mg 5 mg, Intravenous, EVERY 4 HOURS PRN, Nausea/Vomiting, Starting on Fri12/01/23 at 1752, Until 12/06/23 at 1238, Max intravenous rate = 5 mg/min First line therapy for Grade 1 nausea, loss of appetite, or initial onset of vomiting 1-2 episodes. Use IV if patient unable to tolerate oral administration prochlorperazine (Compazine) tablet 10 mg 10 mg, Oral, EVERY 4 HOURS PRN, Nausea/Vomiting, Starting on Fri12/01/23 at 1752, Until 12/06/23 at 1238, First line therapy for Grade 1 nausea, loss of appetite, or initial onset of vomiting 1-2 episodes. Use IV if patient unable to tolerate oral administration valACYclovir (Valtrex) tablet 500 mg 500 mg, Oral, 2 TIMES DAILY, 60 doses, First dose on Fri12/01/23 at 2100, Last dose on Fri12/31/23 at 0900, Indication for anti-infective therapy: Chronic prophylaxis $ Given 12/06/2023 8:48 AM CDT 500 mg $ Given 12/05/2023 8:20 PM CDT 500 mg $ Given 12/05/2023 8:28 AM CDT 500 mg documented in this encounter Active and Recently Administered Medications Times are shown in CDT. Scheduled Medication Order 12/04/2023 12/05/2023 12/06/2023 0.9% NaCl injection 3 mL(Linked Group 1) 3 mL, Intracatheter, EVERY 8 HOURS, First dose on Fri12/02/23 at 1000, Until Discontinued, Flush peripheral IV catheter with 3 mL of normal saline every 8 hours. 0600 (Canceled Entry - Provider: Angelika Fry RN)1739 ($ Given - Provider: Kim Shahid RN)2200 (Canceled Entry - Provider: Angelika Fry RN) 0600 (Canceled Entry - Provider: Angelika Fry RN)1625 ($ Given - Provider: Kim Shahid RN)2020 ($ Given - Provider: Yin Saunders RN) 0717 ($ Given - Provider: Yin Saunders RN) 0.9% NaCl injection 3 mL(Linked Group 2) 3 mL, Intracatheter, EVERY 8 HOURS, First dose on Fri12/06/23 at 0100, Until Discontinued, Flush peripheral IV catheter with 3 mL of normal saline every 8 hours. 0306 ($ Given - Provider: Yin Saunders RN)0716 ($ Given - Provider: Yin Saunders, CORRIE) acetaZOLAMIDE (Diamox) tablet 250 mg 250 mg, Oral, 2 TIMES DAILY, First dose (after last modification) on Ally 12/04/23 at 2100, Until Discontinued 2014 ($ Given - Provider: Angelika Fry RN) 08 ($ Given - Provider: Kim Shahid RN)2019 ($ Given - Provider: Yin Saunders, CORRIE) 0917 ($ Given - Provider: Ericka Thomas RN) acetaZOLAMIDE (Diamox) tablet 500 mg (CANCELED) 500 mg, Oral, 2 TIMES DAILY, First dose on Fri12/02/23 at 1130, Until Discontinued 816 ($ Given - Provider: Kim Shahid RN) artificial tears ophthalmic solution 1 drop 1 drop, Each Eye, 6 TIMES DAILY WHILE AWAKE, First dose on Fri12/02/23 at 1630, Until Discontinued 0817 ($ Given - Provider: Kim Shahid RN)1225 ($ Given - Provider: Kim Shahid RN)1602 ($ Given - Provider: Kim Shahid RN)1738 ($ Given - Provider: Kim Shahid RN)1843 ($ Given - Provider: Kim Shahid RN)2200 (Canceled Entry - Provider: Angelika Fry RN) 0827 ($ Given - Provider: Kim Shahid RN)1000 ($ Given - Provider: Kim Shahid RN)1227 ($ Given - Provider: Kim Shahid RN)1624 ($ Given - Provider: Kim Shahid RN)1725 ($ Given - Provider: Kim Shahid RN)2020 ($ Given - Provider: Yin Saunders RN) 0717 ($ Given - Provider: Yin Saunders RN)0920 ($ Given - Provider: Ericka Thomas RN) cytarabine (Cytosar) 6,700 mg in 0.9% NaCl IV 597 mL infusion (COMPLETED) 6,700 mg (rounded from 6,720 mg = 3,000 mg/m2 ? 2.24 m2 Treatment Plan BSA from Recorded weight), at 199 mL/hr, Administer over 3 Hours, Intravenous, EVERY 12 HOURS, 2 doses, First dose on Fri12/05/23 at 0600, Last dose on Fri12/05/23 at 1800, . PREMEDICATION(s): should be administered at least 30 minutes prior to infusion 0626 ($ New Bag/Syringe - Provider: Angelika Fry RN - Comment: cerebellar WNL brisk blood return)0930 (Stopped - Provider: Kim Shahid RN)1844 ($ New Bag/Syringe - Provider: Ricarda Hassan RN - Comment: positive blood return present on red lumen)2144 (Stopped - Provider: Vivian Donaldson RN) dexAMETHasone (Decadron) 0.1 % ophthalmic suspension 2 drop 2 drop, Each Eye, FOUR TIMES DAILY, 32 doses, First dose on Fri12/01/23 at 2000, Last dose on Fri12/09/23 at 1400, Shake well before using. 0816 ($ Given - Provider: Kim Shahid RN)1219 ($ Given - Provider: Kim Shahid RN)1737 ($ Given - Provider: Kim Shahid RN)2015 ($ Given - Provider: Angelika Fry RN - Comment: self) 0829 ($ Given - Provider: Kim Shahid RN)1227 ($ Given - Provider: Kim Shahid RN)1624 ($ Given - Provider: Kim Shhaid RN)202 ($ Given - Provider: Yin Saunders, RN) 0717 ($ Given - Provider: Yin Saunders, RN)0920 ($ Given - Provider: Ericka Thomas, CORRIE) dexAMETHasone (Decadron) injection 8 mg (COMPLETED) 8 mg, Intravenous, ONCE, 1 dose, On Fri12/05/23 at 0530, Administer 30 minutes prior to chemotherapy ONLY IF patient did not take oral dexamethasone. 0547 ($ Given - Provider: Angelika Fry, CORRIE) famotidine (Pepcid) tablet 20 mg 20 mg, Oral, 2 TIMES DAILY, 60 doses, First dose on Fri12/01/23 at 2100, Last dose on Fri12/31/23 at 0900 0817 ($ Given - Provider: Kim Shahid RN)2014 ($ Given - Provider: Angelika Fry, CORRIE) 0828 ($ Given - Provider: Kim Shahid RN)2019 ($ Given - Provider: Yin Saunders, CORRIE) 0848 ($ Given - Provider: Ericka Thomas, CORRIE) heparin injection 7,500 Units (CANCELED) 7,500 Units, Subcutaneous, EVERY 8 HOURS, First dose on Fri12/03/23 at 1730, Until Discontinued 1023 ($ Given - Provider: Kim Shahid RN)1839 ($ Given - Provider: Kim Shahid RN) 0100 (Canceled Entry - Provider: Angelika Fry RN - Comment: pt refused- says I walk the halls & I have low platelets) heparin lock flush injection 500 Units 500 Units, Intracatheter, DAILY, First dose on Fri12/02/23 at 2100, Until Discontinued, For line dancer 0000 (Canceled Entry - Provider: Angelika Fry RN)1946 ($ Given - Provider: Angelika Fry RN)2200 (Canceled Entry - Provider: Angelika Fry RN) 0306 ($ Given - Provider: Yin Saunders, RN) ondansetron (Zofran) injection 8 mg (COMPLETED) 8 mg, Intravenous, EVERY 12 HOURS, 2 doses, First dose on Fri12/05/23 at 0530, Last dose on Fri12/05/23 at 1730, Administer over 2 to 5 minutes. Administer 30 minutes prior to chemotherapy. 0549 ($ Given - Provider: Angelika Fry RN)1725 ($ Given - Provider: Kim Shahid RN) posaconazole (Noxafil) tablet 300 mg 300 mg, Oral, DAILY WITH DINNER, First dose on Fri12/02/23 at 1800, Until Discontinued, Swallow whole. Do not crush, chew, or cut in half., Indication for anti-infective therapy: Chronic prophylaxis 173 ($ Given - Provider: Kim Shahid RN) 1724 ($ Given - Provider: Kim Shahid RN) potassium chloride ER (Klor-Con M) tablet 20 mEq 20 mEq, Oral, DAILY, First dose on Fri12/02/23 at 1700, Until Discontinued, Swallow whole, do not crush, chew or break. Do not crush or chew. 0816 ($ Given - Provider: Kim Shahid RN) 0828 ($ Given - Provider: Kim Shahid RN) 0848 ($ Given - Provider: Ericka Thomas RN) valACYclovir (Valtrex) tablet 500 mg 500 mg, Oral, 2 TIMES DAILY, 60 doses, First dose on Fri12/01/23 at 2100, Last dose on Fri12/31/23 at 0900, Indication for anti-infective therapy: Chronic prophylaxis 0817 ($ Given - Provider: Kim Shahid RN)2014 ($ Given - Provider: Angelika Fry RN) 0828 ($ Given - Provider: Kim Shahid RN)2019 ($ Given - Provider: Yin Saunders RN) 0848 ($ Given - Provider: Ericka Thomas RN) PRN Medication Order 12/04/2023 12/05/2023 12/06/2023 0.9% NaCl infusion rate and volume at 20 mL/hr, 250 mL, ONCE PRN, Starting on 12/06/23 at 0016, Until 12/06/23 at 1238, Normal Saline flush bag for blood and blood product administration 0.9% NaCl injection 1-10 mL(Linked Group 1) 1-10 mL, Intracatheter, PRN, Other, peripheral line flush, Starting on 12/02/23 at 0926, Until 12/06/23 at 1238, Flush peripheral IV catheter with 1-10 mL of normal saline before and after medications and prn to clear blood from the line or to verify patency. 0.9% NaCl injection 1-10 mL(Linked Group 2) 1-10 mL, Intracatheter, PRN, Other, peripheral line flush, Starting on 12/06/23 at 0016, Until 12/06/23 at 1238, Flush peripheral IV catheter with 1-10 mL of normal saline before and after medications and prn to clear blood from the line or to verify patency. magnesium sulfate 2 g in 50 mL bolus(Linked Group 3) 2 g, at 25 mL/hr, Administer over 120 Minutes, Intravenous, PRN, serum magnesium 1.1 mg/dL to 1.4 mg/dL, Starting on 12/01/23 at 2031, Until 12/06/23 at 1238, Infuse at 1 gm/hr magnesium sulfate 4 g in 100 mL bolus(Linked Group 3) 4 g, at 25 mL/hr, Administer over 240 Minutes, Intravenous, PRN, serum magnesium LESS than 1.1 mg/dL, Starting on 12/01/23 at 2031, Until 12/06/23 at 1238, Infuse at 1 gm/hr ondansetron (disintegrating) (Zofran ODT) tablet 8 mg 8 mg, Oral, 2 TIMES DAILY PRN, Nausea/Vomiting, Starting on 12/01/23 at 1752, Until 12/06/23 at 1238, Second line therapy if failed prochlorperazine with continued loss of appetite and > 3 episodes of vomiting. Do not administer if patient received palonosetron within 48 hours or exceed ondansetron 32 mg in 24 hours. Use IV if patient unable to tolerate oral administration. Dissolved orally on tongue ondansetron (Zofran) injection 8 mg 8 mg, Intravenous, 2 TIMES DAILY PRN, Nausea/Vomiting, Starting on Fri12/01/23 at 1752, Until 12/06/23 at 1238, Administer over 2 to 5 minutes. Second [...] EVERY 4 HOURS PRN, Nausea/Vomiting, Starting on Fri12/01/23 at 1752, Until 12/06/23 at 1238, Max intravenous rate = 5 mg/min First line therapy for Grade 1 nausea, loss of appetite, or initial onset of vomiting 1-2 episodes. Use IV if patient unable to tolerate oral administration prochlorperazine (Compazine) tablet 10 mg 10 mg, Oral, EVERY 4 HOURS PRN, Nausea/Vomiting, Starting on Fri12/01/23 at 1752, Until 12/06/23 at 1238, First line therapy for Grade 1 nausea, loss of appetite, or initial onset of vomiting 1-2 episodes. Use IV if patient unable to tolerate oral administration Linked Groups Order Group 1: 0.9% NaCl injection 3 mLJump to med 3 mL, Intracatheter, EVERY 8 HOURS, First dose on Fri12/02/23 at 1000, Until Discontinued, Flush peripheral IV catheter with 3 mL of normal saline every 8 hours. And 0.9% NaCl injection 1-10 mLJump to med 1-10 mL, Intracatheter, PRN, Other, peripheral line flush, Starting on Fri12/02/23 at 0926, Until 12/06/23 at 1238, Flush peripheral IV catheter with 1-10 mL of normal saline before and after medications and prn to clear blood from the line or to verify patency. Group 2: SALINE LOCK, INSERT AND MAINTAIN (CANCELED) Routine, CONTINUOUS, Starting on Fri12/06/23 at 0030, Until Specified, New collection And 0.9% NaCl injection 3 mLJump to med 3 mL, Intracatheter, EVERY 8 HOURS, First dose on 12/06/23 at 0100, Until Discontinued, Flush peripheral IV catheter with 3 mL of normal saline every 8 hours. And 0.9% NaCl injection 1-10 mLJump to med 1-10 mL, Intracatheter, PRN, Other, peripheral line flush, Starting on 12/06/23 at 0016, Until 12/06/23 at 1238, Flush peripheral IV catheter with 1-10 mL of normal saline before and after medications and prn to clear blood from the line or to verify patency. Group 3: magnesium sulfate 2 g in 50 mL bolusJump to med 2 g, at 25 mL/hr, Administer over 120 Minutes, Intravenous, PRN, serum magnesium 1.1 mg/dL to 1.4 mg/dL, Starting on Fri12/01/23 at 203, Until 12/06/23 at 1238, Infuse at 1 gm/hr Or magnesium sulfate 4 g in 100 mL bolusJump to med 4 g, at 25 mL/hr, Administer over 240 Minutes, Intravenous, PRN, serum magnesium LESS than 1.1 mg/dL, Starting on Fri12/01/23 at 2030, Until 12/06/23 at 1238, Infuse at 1 gm/hr documented in this encounter Care Teams Commissary Officer Relationship Specialty Start Date End Date Nilam Mayers MD [address] [place] [phone] PCP - General Family Medicine 09/04/23 04/18/24 documented as of this encounter
--- OUTSIDE RECORDS SUMMARY | 2024-08-31 21:28 | XMS_ITS | Encounter Summary ---
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 Patient declined 12/01/2023 [facility] of Occupat ional Health - Occupational Stress [...] or slept in a intermediate (including now)? Patient declined 12/01/2023 Sex and [...] st Contact Info) Description 10/27/2024 10:30 AM ENROLLMENT SERVICES VICE PRESIDENT Appointment [facility] [address] [place] [address] Hussain Carias MD [address] [place] [address] Britni Winston, PABaronC [address] [place] [address] 11/17/2024 9:00 AM ENROLLMENT SERVICES VICE PRESIDENT Office Visit [facility] - Ophthalmology [address] [place] [phone] Song Hobson MD [address] [place] [address] [place] [phone] documented as of this encounter Visit Diagnoses Not on filedocumented in this encounter Care Teams Dry Wall Installations Mechanic Relationship Specialty Start Date End Date Nilam Mayers MD [address] [place] [phone] PCP - General Family Medicine 09/04/23 04/18/24 documented as of this encounter
--- OUTSIDE RECORDS SUMMARY | 2024-08-31 21:28 | XMS_ITS | Encounter Summary ---
Author Organization [facility] Address [address] [place], [place] [address] [address] Care Team Providers Care Barrel Endshake Adjuster Name Role Phone Nilam Mayers MD Primary Care Provider +1- [phone] Reason for Visit * Radiology Services (Routine) - Closed Specialty Diagnoses / Procedures Referred By Contac t Referred To Contact Ultrasound Diagnoses Acute myeloid leukemia in remission (HCC) Procedures US EXTREMITY LEFT LTD NONVASC Britni Winston PA-C [address] [place] [address] [phone] Referral ID Status Reason Start Date Expiration Date Visits Re quested Visits Authorized [id number] Closed 12/17/2023 12/16/2024 1 1 Encounter Details Date Type Department Care Team (Latest Contact Info) Description 12/17/2023 11:19 AM CDT - 12/17/2023 11:59 PM T Hospital Encounter [address] [phone] Britni Winston PA-C [address] [place] [phone] Discharge Disposition: Home or Self Care [...] medical care, and heating? Patient declined 12/01/2023 [facility] of Occupat ional Health - Occupational [...] or slept in a correction (including now)? Patient declined 12/01/2023 Sex and [...] st Contact Info) Description 10/27/2024 10:30 AM EMBEDDED NURSE Appointment [facility] [address] [place] [address] Hussain Carias MD [address] [place] [phone] Britni Winston PA-C [address] [place], [place] [phone] 11/17/2024 9:00 AM EMBEDDED NURSE Office Visit [facility] - Ophthalmology [address] [place] [phone] Song Hobson MD [address] [place] [address] [place] [phone] documented as of this encounter Procedures Procedure [...] DATE/TIME OF EXAM: ??12/17/2023 12:07 PM, LOCATION ??[facility] 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 in [...] cellulitis. > Dictated by Aakash Mora MD (Electrical Manufacturing Technician) 12/17/2023 11:53 AM I, Julius Tapia MD have personally reviewed and interpreted this examination/study. > Interpreting Provider: Julius Tapia MD on 12/17/2023 4:31 PM Procedure Note Julius Tapia MD - 12/17/2023 PROCEDURE: US EXTREMITY LEFT LTD NONVASC, DATE/TIME OF EXAM: 12/17/2023 12:07 PM, LOCATION [facility] 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 in [...] cellulitis. > Dictated by Aakash Mora MD (Electrical Manufacturing Technician) 12/17/2023 11:53 AM I, Julius Tapia MD have personally reviewed and interpreted this examination/study. > Interpreting Provider: Julius Tapia MD on 12/17/2023 4:31 PM Britni Winston PA-C US ORDERABLES documented in this encounter Visit Diagnoses Not on filedocumented in this encounter Care Teams Barrel Endshake Adjuster Relationship Specialty Start Date End Date Nilam Mayers MD [address] [place] [phone] PCP - General Family Medicine 09/04/23 04/18/24 documented as of this encounter
--- OUTSIDE RECORDS SUMMARY | 2024-08-31 21:28 | XMS_ITS | Encounter Summary ---
Author Organization [facility] Address [address] [place] [address] [place] [address] Care Team Providers Care Security Inspector Name Role Phone Nilam Mayers MD Primary Care Provider +1- [phone] Encounter Details Date Type Department Care Team (Latest Contact Info) Description 12/15/2023 Travel Social History Tobacco Use Types Packs/Day [...] medical care, and heating? Patient declined 12/01/2023 [facility] of Occupat ional Health - Occupational Stress [...] or slept in a half-way (including now)? Patient declined 12/01/2023 Sex and [...] st Contact Info) Description 10/27/2024 10:30 AM CHECK WEIGHER Appointment [facility] [address] [place] [address] Hussain Carias MD [address] [place] [address] Britni Winston, PABaronC [address] [place] [address] 11/17/2024 9:00 AM CHECK WEIGHER Office Visit [facility] - Ophthalmology [address] [place] [phone] Song Hobson MD [address] [place] [address] [place] [phone] documented as of this encounter Visit Diagnoses Not on filedocumented in this encounter Care Teams Security Inspector Relationship Specialty Start Date End Date Nilam Mayers MD [address] [place] [phone] PCP - General Family Medicine 09/04/23 04/18/24 documented as of this encounter
--- OUTSIDE RECORDS SUMMARY | 2024-08-31 21:28 | XMS_ITS | Encounter Summary ---
Author Organization [facility] Address [address] [place], [place] [address] [address] Care Team Providers Care Sheet Metal Smith Name Role Phone Nilam Mayers MD Primary Care Provider +1- [phone] Encounter Details Date Type Department Care Team (Latest Contact Info) Description 12/19/2023 10:32 AM CDT - 12/19/2023 11:59 PM T Hospital Encounter [facility] DIAGNOSTIC RAD [address] [place] [phone] Cori Hill, SPLICER OPERATOR-ACTIVITIES AIDE [address] [place] [address] Discharge Disposition: Home or Self [...] medical care, and heating? Patient declined 12/01/2023 [facility] [place] of Occupat ional Health - Occupational Stress [...] place to sleep or slept in a long term (including now)? Patient declined 12/01/2023 Sex and [...] 12/01/2023 04/30/2024 posaconazole (Noxafil) 100 MG tabletIndications:Ac [place] myeloid leukemia in remission (HCC) Take 3 [...] 12/17/2023 12/22/2023 valACYclovir (Valtrex) 500 MG tabletIndications:Ac [place] myeloid leukemia in remission (HCC) Take 1 (one) tablet by mouth 2 times daily 60 tablet 11 11/03/2023 08/23/2024 documented as of this encounter Plan of Treatment Upcoming Encounters Date Type Department Care Team (Late st Contact Info) Description 10/27/2024 10:30 AM MANAGER MATH Appointment [facility] [address] [place] [address] Hussain Carias MD [address] [place] [address] Brinti Winston PA-C [address] [place] [address] 11/17/2024 9:00 AM MANAGER MATH Office Visit [facility] - Ophthalmology [address] [facility] [place] [phone] Song Hobson MD [address] [facility] [place] [phone] documented as of this encounter Procedures Procedure Name Priority Date/Time Associated Diagnosis Comments XR CHEST 1VW PORTABLE STAT 12/19/2023 10:49 AM CDT Wheezing documented in this encounter Results * XR CHEST 1VW PORTABLE (12/19/2023 10:49 AM CDT) Anatomical Region Laterality Modality Chest Radiographic Ammy ging 12/19/2023 10:4 8 AM CDT Narrative 12/19/2023 11:18 AM CDT PROCEDURE: ??XR CHEST 1VW PORTABLE, DATE/TIME OF EXAM: ??12/19/2023 10:32 AM, LOCATION ??[facility] INDICATION: R06.2: Wheezing ADDITIONAL CLINICAL INFORMATION: [...] abnormality. > Dictated by Agustín Upton DO (Premium Representative) IJimmie MD have personally reviewed and interpreted this examination/study. > Interpreting Provider: Jimmie Sierra MD on 12/19/2023 11:18 AM Procedure Note Jimmie Sierra MD - 12/19/2023 PROCEDURE: XR CHEST 1VW PORTABLE, DATE/TIME OF EXAM: 12/19/2023 10:32AM, LOCATION [facility] INDICATION: R06.2: Wheezing ADDITIONAL CLINICAL INFORMATION: Ordering Provider Reason For Exam: wheezing COMPARISON: Chest x-ray 09/28/2023 FINDINGS/IMPRESSION: Right IJ approach tunneled central venous catheter that terminates atthe superior cavoatrial junction. Minimal interstitial prominence in the lung bases, substantiallydecreased from 09/28/2023. Findings could be field sales representative of small airwaysdisease. Otherwise, no confluent consolidation, pleural effusion, orpneumothorax. Heart size is normal. Superior mediastinal contours are within normal limits. No acute osseous abnormality. > Dictated by Agustín Upton DO (Premium Representative) I, Jimmie Sierra MD have personally reviewed and interpreted this examination/study. > Interpreting Provider: Jimmie Sierra MD on 12/19/2023 11:18 AM Cori Hill SPLICER OPERATOR-ACTIVITIES AIDE DIAGNOSTIC IMAGING ORDERABLES documented in this encounter Visit Diagnoses Not on filedocumented in this encounter Additional Health Concerns Infection Onset Date Last Indicated Resolved Time COVID-19 Under Investigation 12/19/2023 12/19/2023 12/19/2023 3:31 PM CDT documented as of this encounter Care Teams Sheet Metal Smith Relationship Specialty Start Date End Date Nilam Mayers MD [address] [place] [phone] PCP - General Family Medicine 09/04/23 04/18/24 documented as of this encounter
--- OUTSIDE RECORDS SUMMARY | 2024-08-31 21:28 | XMS_ITS | Encounter Summary ---
Author Organization [facility] Address [address] [place], [place] [address] [address] Care Team Providers Care Surgical Attendant Name Role Phone Nilam Mayers MD Primary Care Provider +1- [phone] Encounter Details Date Type Department Care Team (Latest Contact Info) Description 12/10/2023 8:46 AM CDT - 12/10/2023 11:59 PM T Hospital Encounter [facility] [address] [place] [address] Hussain Carias MD [address] [place] [address] Esperanza Pemberton, ZACH-TECHNOLOGY SALES CONSULTANT [address] [place] [address] Discharge Disposition: Home or Self Care Social [...] medical care, and heating? Patient declined 12/01/2023 [facility] of Occupat ional Health - Occupational Stress [...] slept in a senior care (including now)? Patient declined 12/01/2023 Sex and Gender Information Value Date Recorded Sex Assigned at Not on file Gender Identity Female 02/13/2024 1:12 PM CDT Sexual Orientation Not on file documented as of this encounter Last Filed Vital Signs Vital Sign Reading Time Taken Comments Blood Pressure 134/86 12/10/2023 11:50 AM CDT Pulse 104 12/10/2023 11:50 AM CDT Temperature 36.7 ??C (98 ??F) 12/10/2023 11: 50 AM CDT Respiratory Rate 18 12/10/2023 11:5 0 AM CDT Oxygen Saturation 100% 12/10/2023 11: 50 AM CDT Inhaled Oxygen Concentration - - Weight 108.6 kg (239 lb 6.4 oz) 12/10/2023 8:56 AM CDT Height - - Body Mass Index 43.78 12/03/2023 11:44 AM CDT documented in this [...] Pseudotumor Cerebri 60 tablet 3 12/06/2023 12/17/2023 dicyclomine (Bentyl) 20 MG tablet Take 1 (one) tablet by mouth 3 times daily as needed 12/17/2023 levoFLOXacin (Levaquin) 500 MG tablet Take [...] once daily 30 tablet 3 11/10/2023 12/15/2023 prochlorperazine (Compazine) 10 MG tablet Take 1 (one) tablet by mouth every 8 hours as needed for Nausea/Vomiting 04/30/2024 valACYclovir (Valtrex) 500 MG tabletIndications:Acu te myeloid leukemia in remission (HCC) Take 1 (one) tablet by mouth 2 times daily 60 tablet 11 11/03/2023 08/23/2024 documented as of this encounter Plan of Treatment Upcoming Encounters Date Type Department Care Team (Late st Contact Info) Description 10/27/2024 10:30 AM REGISTERED HEALTH NURSE Appointment [facility] [address] [place] [address] Hussain Carias MD [address] [place] [phone] Britni Winston, PA-C [address] [place], [place] [phone] 11/17/2024 9:00 AM REGISTERED HEALTH NURSE Office Visit [facility] - Ophthalmology [address] [place] [phone] Song Hobson MD [address] [place] [address] [place] [phone] documented as of this encounter Procedures Procedure Name Priority Date/Time Associated Diagnosis Comments PLATELET COUNT AUTO Routine 12/10/2023 1 1:48 AM CDT Acute myeloid leukemia in remission (HCC) TRANSFUSE PLATELET PHERESIS UNIT(S) Routine 12/10/2023 11:03 AM CDT PREPARE PLATELET PHERESIS UNIT(S) Routine 12/10/2023 10:37 AM CDT CBC W AUTO DIFFERENTIAL STAT 12/10/2023 9:00 AM CDT Acute myeloid leukemia in remission (HCC) COMPREHENSIVE METABOLIC PANEL STAT 12/10/2023 9:00 AM CDT Acute myeloid leukemia in remission (HCC) PHOSPHORUS BLOOD STAT 12/10/2023 9:00 AM CDT Acute myeloid leukemia in remission (HCC) MAGNESIUM BLOOD STAT 12/10/2023 9:00 AM CDT Acute myeloid leukemia in remission (HCC) documented in this encounter Results * TRANSFUSE PLATELET PHERESIS UNIT(S) (12/10/2023 11:50 AM CDT) Esperanza Pemberton ONLINE TRADER-TECHNOLOGY SALES CONSULTANT NURSING - BLOOD PROD TRANSFUSION * TRANSFUSE PLATELET PHERESIS UNIT(S), 1 Units (12/10/2023 11:50 AM CDT) Esperanza Pemberton ONLINE TRADER-TECHNOLOGY SALES CONSULTANT NURSING - BLOOD PROD TRANSFUSION * (ABNORMAL) PLATELET COUNT AUTO (12/10/2023 11:48 AM CDT) Pathologist [facility] Platelet Count 45(L) 150 - 420 x10E9/L 12/10/2023 1:01 PM CDT [facility] Blood BLOOD SPECIMEN / Unknown Venipuncture / Unknown 12/10/2023 11:48 AM CDT 12/10/2023 12:04 PM CDT Esperanza Pemberton [facility] Y ORDERABLES [address] [address], [place] [phone] * PREPARE PLATELET PHERESIS UNIT(S), 1 Units (12/10/2023 10:37 AM CDT) Unit Description LRPLTpher B7 IR [facility] BLOOD [facility]ANK LAB Unit ABO O [facility] Unit Rh POS [facility] Product Number P33 [facility] B LOOD [facility]ANK LAB Unit Donor # [id number] [facility] Unit Status transfused [facility] BLO OD BANK LAB Product Code [id number] [facility] BLO OD [facility]ANK LAB Blood Type Barcode 5100 [facility] LAB Expiration Date S BLOOD BANK LAB Blood Bank BLOOD SPECIMEN / Unknown Georgetteoliver Pemberton [facility] - BLOOD BAN K ORDERABLES [facility] LAB [address] [place] [address], [place] [phone] * PHOSPHORUS BLOOD (12/10/2023 9:00 AM CDT) Phosphorus 3.2 2.9 - 5.1 mg/dL 12/10/2023 9:43 AM CDT [facility] Blood BLOOD SPECIMEN / Unknown Venipuncture / Unknown 12/10/2023 9:00 AM CDT 12/10/2023 9:09 AM CDT Lupe Chamorro [facility] - CHEMISTRY ORDERABLES Performing Organization Address City/[facility]/ZIP Co de Phone Number [address] [address], [place] [phone] * MAGNESIUM BLOOD (12/10/2023 9:00 AM CDT) Magnesium 1.7 1.6 - 2.6 mg/dL 12/10/2023 9:43 AM CDT [facility] Blood BLOOD SPECIMEN / Unknown Venipuncture / Unknown 12/10/2023 9:00 AM CDT 12/10/2023 9:09 AM CDT Lupe Chamorro [facility] - CHEMISTRY ORDERABLES Performing Organization Address City/[facility]/ZIP Co de Phone Number [address] [address], [place] [phone] * (ABNORMAL) COMPREHENSIVE METABOLIC PANEL (12/10/2023 9:00 AM CDT) BUN 11 7 - 26 mg/dL 12/10/2023 9:43 AM CDT [facility] Creatinine 0.64 0.56 - 0.96 mg/dL 12/10/2023 9:43 AM [facility] Sodium 140 136 - 145 mmol/L 12/10/2023 9:43 AM [facility] Potassium 3.4(L) 3.5 - 4.5 mmol/L 12/10/2023 9:43 AM [facility] Chloride 110(H) 98 - 107 mmol/L 12/10/2023 9:43 AM [facility] CO2 19(L) 22 - 29 mmol/L 12/10/2023 9:43 AM [facility] Glucose 157(H) 70 - 115 mg/dL 12/10/2023 9:43 AM [facility] Calcium 9.4 8.4 - 10.2 mg/dL 12/10/2023 9:43 AM [facility] Protein Total 6.3 6.0 - 8.3 g/dL 12/10/2023 9:43 AM [facility] Albumin 3.4 3.4 - 5.0 g/dL 12/10/2023 9:43 AM [facility] Bilirubin Total 0.6 0.2 - 1.2 mg/dL 12/10/2023 9:43 AM [facility] Alkaline Phosphatase 70 40 - 150 U/L 12/10/2023 9:43 AM [facility] ALT 22 5 - 55 U/L 12/10/2023 9:43 AM [facility] AST 14 5 - 34 U/L 12/10/2023 9:43 AM [facility] Anion Gap 11 6 - 16 12/10/2023 9:43 AM [facility] BUN/Creatinine Ratio 17 7 - 23 12/10/2023 9:43 AM [facility] Osmolality Calculated 293 275 - 295 mOsm/kg 12/10/2023 9:43 AM [facility] Albumin/Globulin Ratio 1.2 1.1 - 2.3 12/10/2023 9:43 AM [facility] eGFR by CKD-EPI >90 >=90 mL/min/1.7 3 m2 12/10/2023 9:43 AM [facility] Blood BLOOD SPECIMEN / Unknown Venipuncture / Unknown 12/10/2023 9:00 AM CDT 12/10/2023 9:09 AM CDT Lupe Chamorro ONLINE TRADER-TECHNOLOGY SALES CONSULTANT LAB - CHEMISTRY ORDERABLES [facility] [address] [place] [address], [place] [phone] * (ABNORMAL) CBC WITH DIFFERENTIAL (12/10/2023 9:00 AM CDT) WBC 0.3(LL) 4.0 - 10.7 x10E9/L 12/10/2023 9:44 AM [facility] Comment:No Manual Differenti al performed. WBC count < 0.5 RBC Count 2.67(L) 3.90 - 5.20 x10E12/L 12/10/2023 9:44 AM [facility] Hemoglobin 7.6(L) 11.9 - 15.8 g/dL 12/10/2023 9:44 AM [facility] Hematocrit 20.9(L) 34.8 - 46.1 % 12/10/2023 9:44 AM [facility] MCV 78.3(L) 80.0 - 98.0 fL 12/10/2023 9:44 AM [facility] MCH 28.5 26.7 - 33.6 pg 12/10/2023 9:44 AM [facility] MCHC 36.4(H) 31.7 - 36.3 g/dL 12/10/2023 9:44 AM [facility] RDW-CV 14.1 11.3 - 14.8 % 12/10/2023 9:44 AM [facility] Platelet Count 17(LL) 150 - 420 x10E9/L 12/10/2023 9:44 AM [facility] MPV 11.0 7.8 - 11.4 fL 12/10/2023 9:44 AM [facility] Preliminary Absolute Neutrophil 12/10/2023 9:44 AM [facility] Comment:Preliminary ANC pend ing manual confirmation Blood BLOOD SPECIMEN / Unknown Venipuncture / Unknown 12/10/2023 9:00 AM CDT 12/10/2023 9:05 AM CDT Lupe Pedro Pablo [facility] - HEMATOLOG Y ORDERABLES [facility] [address] [place] [address], [place] [phone] documented in this encounter Visit Diagnoses Diagnosis 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 documented in this encounter Administered Medications Inactive Administered Medications - up to 3 most recent administrations Medication Order MAR Action Action Date Dose Rate Site potassium chloride ER (Klor-Con M) tablet 40 mEq 40 mEq, Oral, ONCE, 1 dose, On Fri12/10/23 at 1015, Do not crush or chew. $ Given 12/10/2023 11:50 AM CDT 40 mEq documented in this encounter Care Teams Surgical Attendant Relationship Specialty Start Date End Date Nilam Mayers MD [address] [place] [phone] PCP - General Family Medicine 09/04/23 04/18/24 documented as of this encounter
--- OUTSIDE RECORDS SUMMARY | 2024-08-31 21:28 | XMS_ITS | Encounter Summary ---
Author Organization [facility] Address [address] [place], [place] [address] [address] Care Team Providers Care Supervisor [employer] Name Role Phone Nilam Mayers MD Primary Care Provider [phone]- [phone] Encounter Details Date Type Department Care Team (Late st Contact Info) Description 12/24/2023 8:45 AM CDT - 12/24/2023 11:59 PM T Hospital Encounter [facility] [address] [place] [address] Hussain Carias MD [address] [place] [address] Lupe Chamorro, ZACH-AUTOMOTIVE ENGINEERING TEACHER [address] [facility] [place] [address] Discharge Disposition: Home or Self Care Social [...] heating? Patient declined 12/01/2023 [facility] [place] of Occupat ional Health - Occupational Stress [...] or slept in a fpc (including now)? Patient declined 12/01/2023 Sex and Gender Information Value Date Recorded Sex Assigned at Not on file Gender Identity Female 02/13/2024 1:12 PM CDT Sexual Orientation Not on file documented as of this encounter Last Filed Vital Signs Vital Sign Reading Time Taken Comments Blood Pressure 108/65 12/24/2023 2:19 PM CDT Pulse 87 12/24/2023 2:19 PM CDT Temperature 37.2 ??C (99 ??F) 12/24/2023 2:19 PM CDT Respiratory Rate 18 12/24/2023 2:19 PM CDT Oxygen Saturation 100% 12/24/2023 2:19 PM CDT Inhaled Oxygen Concentration - - Weight 107.6 kg (237 lb 3.2 oz) 12/24/2023 8:48 AM CDT Height - - Body Mass Index 43.37 12/03/2023 11:44 AM CDT documented in this [...] st Contact Info) Description 10/27/2024 10:30 AM PEDIATRICS PHYSICIAN Appointment [facility] [address] [place], [place] [id number] Hussain Carias MD [address] [place] [phone] Britni Winston, PA-C [address] [place] [address] 11/17/2024 9:00 AM PEDIATRICS PHYSICIAN Office Visit [facility] - Ophthalmology [address] [place] [phone] Song Hobson MD [address] [place] [address] [place] [phone] documented as of this encounter Procedures Procedure Name Priority Date/Time Associated Diagnosis Comments DIFFERENTIAL MANUAL STAT 12/24/2023 8 :51 AM CDT Acute myeloid leukemia in remission (HCC) CBC W AUTO DIFFERENTIAL STAT 12/24/2023 8:51 AM CDT Acute myeloid leukemia in remission (HCC) COMPREHENSIVE METABOLIC PANEL STAT 12/24/2023 8:51 AM CDT Acute myeloid leukemia in remission (HCC) PHOSPHORUS BLOOD STAT 12/24/2023 8:51 AM CDT Acute myeloid leukemia in remission (HCC) MAGNESIUM BLOOD STAT 12/24/2023 8:51 AM CDT Acute myeloid leukemia in remission (HCC) documented in this encounter Results * (ABNORMAL) DIFFERENTIAL MANUAL (12/24/2023 8:51 AM CDT) Neutrophil % 48 41 - 74 % 12/24/2023 10:14 AM T [facility] Lymphocyte % 16(L) 17 - 47 % 12/24/2023 10:14 AM T [facility] Monocyte % 32(H) 3 - 11 % 12/24/2023 10:14 AM T [facility] Metamyelocyte % 2(H) 0% % 10:14 AM T [facility] Myelocyte % 2(H) 0% % 12/24/2023 10:14 AM T [facility] Neutrophil Absolute 1.34(L) 1.60 - 7.50 x10E9/L 12/24/2023 10:14 AM T [facility] Lymphocyte Absolute 0.45(L) 1.00 - 4.40 x10E9/L 12/24/2023 10:14 AM T [facility] Monocyte Absolute 0.90 0.15 - 1.00 x10E9/L 12/24/2023 10:14 AM [facility] RBC Morphology REVIEWED 12/24/2023 10:14 AM [facility] Microcytosis MANY(A) (none) 12/24/2023 10:14 AM T [facility] Blood BLOOD SPECIMEN / Unknown Venipuncture / Unknown 12/24/2023 8:51 AM CDT 12/24/2023 8:59 AM CDT Lupe Chamorro APRN-AUTOMOTIVE ENGINEERING TEACHER LAB - HEMATOLOG Y ORDERABLES Performing Organization Address City/State/[facility] Co de Phone Number [facility] [address] [place] [phone], [facility] [phone] * PHOSPHORUS BLOOD (12/24/2023 8:51 AM CDT) Phosphorus 3.1 2.9 - 5.1 mg/dL 12/24/2023 9:33 AM T [facility] Blood BLOOD SPECIMEN / Unknown Venipuncture / Unknown 12/24/2023 8:51 AM CDT 12/24/2023 8:59 AM CDT Lupe [facility] - CHEMISTRY ORDERABLES [address] [phone], [facility] [phone] * MAGNESIUM BLOOD (12/24/2023 8:51 AM CDT) Magnesium 2.1 1.6 - 2.6 mg/dL 12/24/2023 9:33 AM [facility] Blood BLOOD SPECIMEN / Unknown Venipuncture / Unknown 12/24/2023 8:51 AM CDT 12/24/2023 8:59 AM CDT Lupe Pedro Pablo [facility] - CHEMISTRY ORDERABLES Performing Organization Address [facility]/ZIP Co de Phone Number [address] [phone], [facility] [phone] * (ABNORMAL) COMPREHENSIVE METABOLIC PANEL (12/24/2023 8:51 AM CDT) BUN 10 7 - 26 mg/dL 12/24/2023 9:33 AM [facility] Creatinine 0.68 0.56 - 0.96 mg/dL 12/24/2023 9:33 AM [facility] Sodium 137 136 - 145 mmol/L 12/24/2023 9:33 AM [facility] Potassium 4.1 3.5 - 4.5 mmol/L 12/24/2023 9:33 AM [facility] Chloride 109(H) 98 - 107 mmol/L 12/24/2023 9:33 AM [facility] CO2 18(L) 22 - 29 mmol/L 12/24/2023 9:33 AM [facility] Glucose 165(H) 70 - 115 mg/dL 12/24/2023 9:33 AM [facility] Calcium 9.7 8.4 - 10.2 mg/dL 12/24/2023 9:33 AM [facility] Protein Total 7.5 6.0 - 8.3 g/dL 12/24/2023 9:33 AM [facility] Albumin 3.5 3.4 - 5.0 g/dL 12/24/2023 9:33 AM [facility] Bilirubin Total 0.3 0.2 - 1.2 mg/dL 12/24/2023 9:33 AM [facility] Alkaline Phosphatase 88 40 - 150 U/L 12/24/2023 9:33 AM [facility] ALT 24 5 - 55 U/L 12/24/2023 9:33 AM [facility] AST 19 5 - 34 U/L 12/24/2023 9:33 AM [facility] Anion Gap 10 6 - 16 12/24/2023 9:33 AM [facility] BUN/Creatinine Ratio 15 7 - 23 12/24/2023 9:33 AM [facility] Osmolality Calculated 287 275 - 295 mOsm/kg 12/24/2023 9:33 AM [facility] Albumin/Globulin Ratio 0.9(L) 1.1 - 2.3 12/24/2023 9:33 AM [facility] eGFR by CKD-EPI >90 >=90 mL/min/1.7 3 m2 12/24/2023 9:33 AM [facility] Blood BLOOD SPECIMEN / Unknown Venipuncture / Unknown 12/24/2023 8:51 AM CDT 12/24/2023 8:59 AM T Lupe Chamorro MASTER [employer] PARACHUTIST-AUTOMOTIVE ENGINEERING TEACHER LAB - CHEMISTRY ORDERABLES Performing Organization Address City/State/[facility] Co de Phone Number [facility] [address] [place] [phone], [facility] [phone] * (ABNORMAL) CBC WITH DIFFERENTIAL (12/24/2023 8:51 AM T) WBC 2.8(L) 4.0 - 10.7 x10E9/L 12/24/2023 10:14 AM [facility] RBC Count 2.84(L) 3.90 - 5.20 x10E12/L 12/24/2023 10:14 AM [facility] Hemoglobin 8.1(L) 11.9 - 15.8 g/dL 12/24/2023 10:14 AM [facility] Hematocrit 22.8(L) 34.8 - 46.1 % 12/24/2023 10:14 AM [facility] MCV 80.3 80.0 - 98.0 fL 12/24/2023 10:14 AM [facility] MCH 28.5 26.7 - 33.6 pg 12/24/2023 10:14 AM [facility] MCHC 35.5 31.7 - 36.3 g/dL 12/24/2023 10:14 AM [facility] RDW-CV 14.1 11.3 - 14.8 % 12/24/2023 10:14 AM [facility] Platelet Count 48(L) 150 - 420 x10E9/L 12/24/2023 10:14 AM [facility] MPV 9.6 7.8 - 11.4 fL 12/24/2023 10:14 AM [facility] Preliminary Absolute Neutrophil 0.89(L) 1.60 - 7.50 x10E9/L 12/24/2023 10:14 AM [facility] Comment:Preliminary ANC pend ing manual confirmation NRBC 0.7(H) <=0.0 /100 WBC 12/24/2023 10:14 AM [facility] Blood BLOOD SPECIMEN / Unknown Venipuncture / Unknown 12/24/2023 8:51 AM CDT 12/24/2023 8:59 AM T Lupe Chamorro MASTER [employer]IST-AUTOMOTIVE ENGINEERING TEACHER LAB - HEMATOLOG Y ORDERABLES [facility] [address] [place] [phone], [facility] [phone] documented in this encounter Visit Diagnoses Diagnosis 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 documented in this encounter Care Teams Supervisor [employer] Relationship Specialty Start Date End Date Nilam Mayers MD [address] [place] [phone] PCP - General Family Medicine 09/04/23 04/18/24 documented as of this encounter
--- OUTSIDE RECORDS SUMMARY | 2024-08-31 21:28 | XMS_ITS | Encounter Summary ---
Author Organization [facility] Address [address] [place] [address] [place] [address] Care Team Providers Care Adjustment Supervisor Name Role Phone Nilam Mayers MD Primary Care Provider [phone]- [phone] Encounter Details Date Type Department Care Team (Latest Contact Info) Description 12/30/2023 Travel Social History Tobacco Use Types Packs/Day [...] and heating? 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 Appointment [facility] [address] [place] [address] Hussain Carias MD [address] [place] [address] Britni Winston, PABaronC [address] [place] [address] 11/17/2024 9:00 AM DUPLICATING MACHINE SERVICER Office Visit [facility] - Ophthalmology [address] [place] [phone] Song Hobson MD [address] [place] [address] [place] [phone] documented as of this encounter Visit Diagnoses Not on filedocumented in this encounter Care Teams Adjustment Supervisor Relationship Specialty Start Date End Date Nilam Mayers MD [address] [place] [phone] PCP - General Family Medicine 09/04/23 04/18/24 documented as of this encounter
--- OUTSIDE RECORDS SUMMARY | 2024-08-31 21:28 | XMS_ITS | Encounter Summary ---
Author Organization [facility] Address [address] [place], [place] [address] [address] Care Team Providers Care Security Solutions Architect Name Role Phone Nilam Mayers MD Primary Care Provider [phone]- [phone] Reason for Visit * Oncology Prior Authorization (Routine) - Closed Specialty Diagnoses / Procedures Referred By Contac t Referred To Contact Diagnoses Acute myeloid leukemia in remission (HCC) Procedures MS INJECTION CYTARABINE 100 MG MS ONDANSETRON HCL INJECTION MS PROCHLORPERAZINE INJECTION Remington Stafford MD [address] [facility] [place] [address] [facility] [address] [place] [address] Referral ID Status Reason Start Date Expiration Date Visits Re quested Visits Authorized [id number] Closed 10/02/2023 02/20/2024 2 2 Encounter Details Date Type Department Care Team (Late st Contact Info) Description 12/30/2023 8:57 AM CDT - 12/30/2023 4:43 PM CDT Hospital Encounter [facility] [address] [place] [address] Lupe Chamorro APRN-CHU [address] [facility] [place] [place] [address] Discharge Disposition: Home or Self [...] and heating? Not hard at all 12/30/2023 [facility] - Occupational Stress [...] or slept in a correction (including now)? Yes 12/30/2023 Sex and Gender Information Value Date Recorded Sex Assigned at Not on file Gender Identity Female 02/13/2024 1:12 PM CDT Sexual Orientation Not on file documented as of this encounter Last Filed Vital Signs Vital Sign Reading Time Taken Comments Blood Pressure 132/85 12/30/2023 9:06 AM CDT Pulse 124 12/30/2023 9:06 AM CDT Temperature 36.7 ??C (98.1 ??F) 12/30/2023 9:06 AM CD T Respiratory Rate 18 12/30/2023 9:06 AM CDT Oxygen Saturation 100% 12/30/2023 9:06 AM CDT Inhaled Oxygen Concentration - - Weight 108.7 kg (239 lb 11.2 oz) 12/30/2023 9:06 AM CDT Height - - Body Mass Index 43.83 12/03/2023 11:44 AM CDT documented in this [...] 12/01/2023 04/30/2024 posaconazole (Noxafil) 100 MG tabletIndications:Ac anvik myeloid leukemia in remission (HCC) Take 3 (three) tablets by mouth daily with dinner 90 tablet 5 12/15/2023 05/20/2024 potassium chloride ER 10 MEQ tablet Take 2 (two) tablets by mouth once daily 30 tablet 3 12/15/2023 03/02/2024 prochlorperazine (Compazine) 10 MG tablet Take 1 (one) tablet by mouth every 8 hours as needed for Nausea/Vomiting 04/30/2024 valACYclovir (Valtrex) 500 MG tabletIndications:Ac anvik myeloid leukemia in remission (HCC) Take 1 (one) tablet by mouth 2 times daily 60 tablet 11 11/03/2023 08/23/2024 documented as of this encounter Progress Notes * Lupe Chamorro APRN-AGRICULTURAL LOAN OFFICER - 12/30/2023 9:03 AM CDT Images from the original note were not included. HEMATOLOGY/ONCOLOGY INPATIENT PROGRESS NOTE Name: Sarah Mckeon Age: [age] year old Date of : 1985 Date of Service: 12/30/2023 Reason for Consult: AML HEMATOLOGY & ONCOLOGY HISTORY Principal Diagnosis: AML Current Therapy: C4D1 HiDAC consolidation SUBJECTIVE History of Present Illness Chief Complaint: Visit today prior to starting C4 D1 HiDAC l History of Present Illness: Sarah Mckeon is a 38 year old female with favorable risk AML, NPM-1 mutation in complete remissionpresenting for C4 of HiDAC consolidation therapy. Originally in August of 2023 was admitted to [facility] c/o flu like symptoms and ultimately had marrow biopsy revealing 78% blasts on marrow and flow cytometry confirmed NPM1 mutation. Was sent to [facility] for AML. Completed 7 + 3 induction, cou nt recovery BMBx on 09/1723 confirmed remission. Has completed 2 consolidation therapies. 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 All have been worked up both in the inpatient and outpatient setting, well controlled on current medication regimen. Interval History: -Presents to clinic today for scheduled visit for labs and to start C4 HiDAC and admit to 7N. -Denies F/C/N/V/D/C, or abdominal pain. -Eating and drinking well. -Left axillary abscess well healed. -Hemorrhoid pain and discomfort has improved after using preparation H and generic tucks pads. -Having normal, formed, soft stools. No rectal bleeding. No nose bleeds. -No other complaints or concerns. Review of Systems: Review of Systems Unable to perform ROS: Other Constitutional: Negative. Negative for chills, fever, malaise/fatigue and weight loss. HENT: Negative. Negative for congestion, nosebleeds and sore throat. Eyes: Negative. Negative for blurred vision and double vision. Respiratory: Negative. Negative for cough and shortness of breath. Cardiovascular: Negative. Negative for chest pain. Gastrointestinal: Negative. Negative for abdominal pain, blood in stool, constipation, diarrhea, melena, nausea and vomiting. Genitourinary: Negative. Negative for dysuria, frequency, hematuria and urgency. Musculoskeletal: Negative. Negative for back pain and myalgias. Skin: Negative. Negative for rash. Neurological: Negative. Negative for dizziness, tingling and headaches. Endo/Heme/Allergies: Negative. Psychiatric/Behavioral: Negative. All other systems reviewed and are negative. Past Medical & Surgical History None / Negative Past Oncology History Oncology History Acute myeloid leukemia in remission (HCC) 09/03/2023 Initial Diagnosis 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 ([facility]-HCC) 09/06/2023 - Chemotherapy cytarabine (Cytosar) 460 mg [...] 1 of 1 cycle IDArubicin (Idamycin) injection mg, 12 mg/m2 = 27 mg, Intravenous, [...] edema on exam-- to prevent vision loss. .onctx Active Treatment Days for Sarah Mckeon (until 12/31/2023) 12/30/2023 ONCOLOGY TREATMENT: IP AML CONSOLIDATION - AGE <60 (HIGH DOSE CYTARABINE)(SANDHU HIDAC) Day 1, Cycle 4 (Planned) Pre-Medications: ondansetron (Zofran) injection 8 mg, ondansetron (Zofran) injection 8 mg, dexAMETHasone Sod Phosphate PF injection 8 mg Chemotherapy: cytarabine (Cytosar) 6,700 mg in 0.9% NaCl IV 567 mL infusion, cytarabine (Cytosar) 6,700 mg in 0.9% NaCl IV 567 mL infusion Supportive Care: dexAMETHasone (Decadron) 0.1 % ophthalmic suspension 2 drop, dexAMETHasone (Decadron) 0.1 % ophthalmic suspension 2 drop, famotidine (Pepcid) tablet 20 mg, prochlorperazine (Compazine) tablet 10 mg, prochlorperazine (Compazine) injection 5 mg, ondansetron (disintegrating) (Zofran ODT) tablet 8 mg, ondansetron (Zofran) injection 8 mg, valACYclovir (Valtrex) tablet 500 mg Medications SCHEDULED MEDICATIONS: Current Outpatient Medications Medication [...] 84 days (Patient not taking: Reported on 12/22/2023) ??? ondansetron (Zofran) 8 MG tablet Take [...] times daily Current Facility-Administered Medications Medication ??? cytarabine (Cytosar) 6,700 mg in 0.9% NaCl IV 597 mL infusion ??? dexAMETHasone (Decadron) 0.1 % ophthalmic suspension 2 drop ??? ondansetron (Zofran) injection 8 mg Allergies No Known Allergies OBJECTIVE Physical Exam Vitals: 12/30/23 0906 BP: 132/85 Pulse: (Abnormal) 124 Resp: 18 Temp: 98.1 ??F SpO2: 100% Weight: 108.7 kg (239 lb 11.2 oz) Wt Readings from Last 3 Encounters: 12/30/23 108.7 kg (239 lb 11.2 oz) 12/24/23 107.6 kg (237 lb 3.2 oz) 12/22/23 107.6 kg (237 lb 3.2 oz) PHYSICAL EXAM: Karnofsky/ECO/0 General appearance - alert, well appearing, and in no distress Mental status - alert, oriented to person, place, and time, normal mood, behavior, speech, dress, motor activity, and thought processes Mouth - mucous membranes moist, pharynx normal without lesions Chest - clear to auscultation, no wheezes, rales or rhonchi, symmetric air entry Heart - tachycardic, regular rhythm, normal S1, S2, no murmurs, rubs, clicks or gallops Abdomen - soft, nontender, nondistended, no masses or organomegaly; bowel sounds normal Musculoskeletal - no joint tenderness, deformity or swelling Extremities - pedal edema trace +, intact peripheral pulses Skin - normal coloration and turgor, no rashes, no suspicious skin lesions noted. Area under left axilla with just a tiny pimple-looking spot left, no open areas, no erythema, swelling, or drainage. CVC: tunneled CVC to right chest, dressing is dry and intact without redness, swelling, or stated tenderness Laboratory Results Recent Labs Component Name 12/30/23 0909 12/24/23 0851 12/22/23 1206 12/22/23 0906 12/06/23 0847 12/05/23202112/04/23 1946 WBC 5.0 2.8* - 1.4* - 2.1* 3.3* RBC 2.58* 2.84* - 2.77* - 2.37* 2.44* HGB 7.4* 8.1* - 7.8* - 6.8* 7.2* HCT 21.1* 22.8* - 22.1* - 19.0* 19.9* MCV 81.8 80.3 - 79.8* - 80.2 81.6 MCHC 35.1 35.5 - 35.3 - 35.8 36.2 PLTCOUNT - 48* 52* 16* - 33* 48* NEUTPCT 42.9 - - - - 92.7* 89.0* LYMPHPCT 34.5 - - - - 5.8* 6.7* NEUTABS 2.16 0.89* 1.34* - 0.41* 0.43* - 1.91 2.93 LYMPHABS 1.74 0.45* - 0.53* - 0.12* 0.22* BASOABS 0.01 - - - - 0.00 0.00 - = values in this interval not displayed. Recent Labs Component Name 12/30/23 0909 12/24/23 0851 12/22/23 0906 POTASSIUM 3.8 4.1 3.8 CO2 20* 18* 19* BUN 9 10 9 CREATININE 0.72 0.68 0.70 EGFR >90 >90 >90 GLUCOSE 187* 165* 168* CALCIUM 9.7 9.7 9.9 MAGNESIUM 1.8 2.1 1.9 PHOS 3.5 3.1 3.5 ALT 21 24 21 AST 17 19 15 ALKPHOS 86 88 80 Recent Labs Component Name 12/30/23 0909 12/24/23 0851 12/22/23 0906 MAGNESIUM 1.8 2.1 1.9 Recent Labs Component Name 12/30/23 0909 12/24/23 0851 12/22/23 0906 PHOS 3.5 3.1 3.5 Pathology Results RVP (12/19/23): negative Radiology Results CXR (12/19/23): Right IJ approach tunneled central venous catheter that terminates at the superior cavoatrial junction. ?? Minimal interstitial prominence in the lung bases, substantially decreased from 09/28/2023. Findings could be dairy supplies sales representative of small airways disease. Otherwise, [...] favorable risk AML, NPM-1 mutation, presenting for C4 ofHiDAC therapy, today is D1 C4. 1. Acute myeloid leukemia, NPM-1 mutation, favorable [...] planned. - Labs reviewed. Hgb low at 7.4 today but within parameters to proceed to treatment today. General transfusion parameters (leukoreduced and irradiated blood [...] know if sx do not continue toresolve. -Suggested sitz baths, A & D ointment to the area as a barrier, Preparation H cream externally,and/or tucks pads for comfort -Improving 6. Left axillary abscess - Began 12/14, worsened 12/16. - Obtained left axillary US 12/16 to look for area of loculation to determine if drainage is necessary. Prelim read did not find area of loculation. - Sent Bactrim DS 2 tabs BID x 5 days, 0 RF (12/19-12/23). - Appears to be resolving per exam 12/18. -Area appears well-healed (12/28) 7. URI - CXR (12/18) negative for acute pulmonary process - RVP neg. -Resolved (12/30/23) PLAN: - C4 D1 HiDAC consolidation - Continue OI ppx with valtrex, posaconazole, and start levaquin when neutropenic. -May continue A & D ointment as skin barrier for rectal pain, sitz baths, preparation H cream externally, and /or tucks pads for comfort. 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 Appointment [facility] [address] [place] [address] Hussain Carias MD [address] [place] [address] Britni Winston, PABaronC [address] [place] [address] 11/17/2024 9:00 AM BRAIDER SETTER Office Visit [facility] - Ophthalmology [address] [facility], [place] [phone] Song Hobson MD [address] [facility] [place]PT [place] [phone] documented as of this encounter Procedures Procedure Name Priority Date/Time Associated Diagnosis Comments GLUCOSE - POINT OF CARE Routine 12/30/2023 1:02 PM CDT PLATELET COUNT AUTO CITRATED BLOOD STAT 12/30/2023 11:04 AM CDT Acute myeloid leukemia in remission (HCC) URIC ACID BLOOD STAT 12/30/2023 9:09 AM CDT Acute myeloid leukemia in remission (HCC) TYPE + SCREEN PANEL STAT 12/30/2023 9 :09 AM CDT Acute myeloid leukemia in remission (HCC) CBC W AUTO DIFFERENTIAL STAT 12/30/2023 9:09 AM CDT Acute myeloid leukemia in remission (HCC) COMPREHENSIVE METABOLIC PANEL STAT 12/30/2023 9:09 AM CDT Acute myeloid leukemia in remission (HCC) PHOSPHORUS BLOOD STAT 12/30/2023 9:09 AM CDT Acute myeloid leukemia in remission (HCC) MAGNESIUM BLOOD STAT 12/30/2023 9:09 AM CDT Acute myeloid leukemia in remission (HCC) LDH BLOOD STAT 12/30/2023 9:09 AM CDT Acute myeloid leukemia in remission (HCC) documented in this encounter Results * (ABNORMAL) GLUCOSE - POINT OF CARE (12/30/2023 1:02 PM CDT) Pathologist [facility] Glucose WB/POC 131(H) 70 - 115 mg/dL 12/30/2023 1:03 PM CDT [facility] Specimen Type Cap Fingerstick 2023 1:03 PM CDT [facility] Blood BLOOD SPECIMEN / Unknown 12/30/2023 1:02 PM CDT 12/30/2023 1:03 PM CDT Lupe LOPEZ LAB - POINT OF CARE ORDERABLES [address] [address], [place] [phone] * (ABNORMAL) PLATELET COUNT AUTO CITRATED BLOOD (12/30/2023 11:04 AM CDT) Platelet Count Citrated 34(L) 150 - 420 x10E9/L 12/30/2023 12:13 PM CDT [facility] Blood BLOOD SPECIMEN / Unknown Venipuncture / Unknown 12/30/2023 11:04 AM CDT 12/30/2023 11:08 AM CDT Lupe LOPEZ LAB - HEMATOLOG Y ORDERABLES Performing Organization Address City/[facility]/ZIP Co de Phone Number [address] [address], [place] [phone] * TYPE + SCREEN PANEL (12/30/2023 9:09 AM CDT) Antibody Screen NEG 10:13 AM CDT [facility] ABO Rh O POS 12/30/2023 10:13 AM CDT [facility] Blood Bank BLOOD SPECIMEN / Unknown Venipuncture / Unknown 12/30/2023 9:09 AM CDT 12/30/2023 9:26 AM CDT Britni Winston PA-C LAB - BLOOD BANK ORD ERABLES Performing Organization Address City/[facility]/ZIP Co de Phone Number [facility] [address] [place] [address], [place] [phone] * URIC ACID BLOOD (12/30/2023 9:09 AM CDT) Pathologist [facility] Uric Acid 4.7 2.6 - 6.0 mg/dL 12/30/2023 9:44 AM CDT [facility] Blood BLOOD SPECIMEN / Unknown Venipuncture / Unknown 12/30/2023 9:09 AM CDT 12/30/2023 9:18 AM CDT Britni Winston PA-C LAB - CHEMISTRY JON NAIDU [address] [address], [facility] [phone] * (ABNORMAL) LDH BLOOD (12/30/2023 9:09 AM CDT) [facility] LDH Total 260(H) 125 - 243 Units/L 12/30/2023 9:44 AM CDT [facility] Blood BLOOD SPECIMEN / Unknown Venipuncture / Unknown 12/30/2023 9:09 AM CDT 12/30/2023 9:18 AM CDT Britni Winston PA-C LAB - CHEMISTRY JON NAIDU [address] [address], [facility] [phone] * (ABNORMAL) CBC WITH DIFFERENTIAL (12/30/2023 9:09 AM CDT) [facility] WBC 5.0 4.0 - 10.7 x10E9/L 12/30/2023 9:56 AM CDT [facility] RBC Count 2.58(L) 3.90 - 5.20 x10E12/L 12/30/2023 9:56 AM T [facility] Hemoglobin 7.4(L) 11.9 - 15.8 g/dL 12/30/2023 9:56 AM T [facility] Hematocrit 21.1(L) 34.8 - 46.1 % 12/30/2023 9:56 [address] [facility] MCV 81.8 80.0 - 98.0 fL 12/30/2023 9:56 AM [facility] MCH 28.7 26.7 - 33.6 pg 12/30/2023 9:56 AM [facility] MCHC 35.1 31.7 - 36.3 g/dL 12/30/2023 9:56 AM [facility] RDW-CV 14.6 11.3 - 14.8 % 12/30/2023 9:56 AM [facility] Platelet Count 12/30/2023 9:56 AM [facility] Comment:Platelets clumped on slide but appears decreased. Recommend repeat with a sodium citrate blue top tube. MPV 12/30/2023 9:56 AM [facility] Comment:Unable to report Preliminary Absolute Neutrophil 2.16 1.60 - 7.50 x10E9/L 12/30/2023 9:56 AM [facility] Comment:Preliminary ANC pend ing manual confirmation Neutrophil % 42.9 41.0 - 74.0 % 12/30/2023 9:56 AM [facility] Lymphocyte % 34.5 17.0 - 47.0 % 12/30/2023 9:56 AM [facility] Monocyte % 21.8(H) 3.0 - 11.0 % 12/30/2023 9:56 AM [facility] Eosinophil % 0.0 0.0 - 7.0 % 12/30/2023 9:56 AM [facility] Basophil % 0.2 0.0 - 1.6 % 12/30/2023 9:56 AM [facility] Immature Granulocytes % 0.6 0.0 - 1.0 % 12/30/2023 9:56 AM [facility] Neutrophil Absolute 2.16 1.60 - 7.50 x10E9/L 12/30/2023 9:56 AM [facility] Lymphocyte Absolute 1.74 1.00 - 4.40 x10E9/L 12/30/2023 9:56 AM [facility] Monocyte Absolute 1.10(H) 0.15 - 1.00 x10E9/L 12/30/2023 9:56 AM CDT [facility] Eosinophil Absolute 0.00 0.00 - 0.60 x10E9/L 12/30/2023 9:56 AM CDT [facility] Basophil Absolute 0.01 0.00 - 0.13 x10E9/L 12/30/2023 9:56 AM CDT [facility] NRBC 1.4(H) <=0.0 /100 WBC 12/30/2023 9:56 AM CDT [facility] Blood BLOOD SPECIMEN / Unknown Venipuncture / Unknown 12/30/2023 9:09 AM CDT 12/30/2023 9:18 AM CDT Britni Winston PA-C LAB - HEMATOLOGY ORD ERABLES Performing Organization Address City/[facility]/ZIP Co de Phone Number [address] [address], [facility] [phone] * MAGNESIUM BLOOD (12/30/2023 9:09 AM CDT) Magnesium 1.8 1.6 - 2.6 mg/dL 12/30/2023 9:44 AM CDT [facility] Blood BLOOD SPECIMEN / Unknown Venipuncture / Unknown 12/30/2023 9:09 AM CDT 12/30/2023 9:18 AM CDT Britni Winston PA-C LAB - CHEMISTRY ORDE RABQI [address] [address], [facility] [phone] * (ABNORMAL) COMPREHENSIVE METABOLIC PANEL (12/30/2023 9:09 AM CDT) BUN 9 7 - 26 mg/dL 12/30/2023 9:44 AM CDT [facility] Creatinine 0.72 0.56 - 0.96 mg/dL 12/30/2023 9:44 AM CDT [facility] Sodium 142 136 - 145 mmol/L 12/30/2023 9:44 AM [facility] Potassium 3.8 3.5 - 4.5 mmol/L 12/30/2023 9:44 AM [facility] Chloride 112(H) 98 - 107 mmol/L 12/30/2023 9:44 AM [facility] CO2 20(L) 22 - 29 mmol/L 12/30/2023 9:44 AM [facility] Glucose 187(H) 70 - 115 mg/dL 12/30/2023 9:44 AM [facility] Calcium 9.7 8.4 - 10.2 mg/dL 12/30/2023 9:44 AM [facility] Protein Total 6.9 6.0 - 8.3 g/dL 12/30/2023 9:44 AM [facility] Albumin 3.5 3.4 - 5.0 g/dL 12/30/2023 9:44 AM [facility] Bilirubin Total 0.4 0.2 - 1.2 mg/dL 12/30/2023 9:44 AM [facility] Alkaline Phosphatase 86 40 - 150 U/L 12/30/2023 9:44 AM [facility] ALT 21 5 - 55 U/L 12/30/2023 9:44 AM [facility] AST 17 5 - 34 U/L 12/30/2023 9:44 AM [facility] Anion Gap 10 6 - 16 12/30/2023 9:44 AM [facility] BUN/Creatinine Ratio 13 7 - 23 12/30/2023 9:44 AM [facility] Osmolality Calculated 298(H) 275 - 295 mOsm/kg 12/30/2023 9:44 AM [facility] Albumin/Globulin Ratio 1.0(L) 1.1 - 2.3 12/30/2023 9:44 AM [facility] eGFR by CKD-EPI >90 >=90 mL/min/1.7 3 m2 12/30/2023 9:44 AM [facility] Blood BLOOD SPECIMEN / Unknown Venipuncture / Unknown 12/30/2023 9:09 AM T 12/30/2023 9:18 AM CDT Britni Winston PA-C LAB - CHEMISTRY JON JULIANQI [address] [address], [place] [phone] * PHOSPHORUS BLOOD (12/30/2023 9:09 AM CDT) Phosphorus 3.5 2.9 - 5.1 mg/dL 12/30/2023 9:44 AM CDT [facility] Blood BLOOD SPECIMEN / Unknown Venipuncture / Unknown 12/30/2023 9:09 AM CDT 12/30/2023 9:18 AM CDT Britni Winston PA-C LAB - CHEMISTRY JON NAIDU [address] [address], [place] [phone] documented in this encounter Visit Diagnoses Diagnosis 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 in remission documented in this encounter Administered Medications Inactive Administered Medications - up to 3 most recent administrations Medication Order MAR Action Action Date Dose Rate Site cytarabine (Cytosar) 6,700 mg in 0.9% NaCl IV 597 mL infusion 6,700 mg (rounded from 6,720 mg = 3,000 mg/m2 ? 2.24 m2 Treatment Plan BSA from Recorded weight), at 199 mL/hr, Administer over 3 Hours, Intravenous, ONCE, 1 dose, On Fri12/30/23 at 1030, . PREMEDICATION(s): should be administered at least 30 minutes prior to infusion $ New Bag/Syringe 12/30/2023 10:23 AM CDT 6,700 mg 199 mL/hr dexAMETHasone (Decadron) 0.1 % ophthalmic suspension 2 drop 2 drop, Each Eye, FOUR TIMES DAILY, 4 doses, First dose on Fri12/30/23 at 1000, Last dose on Fri12/31/23 at 0600, Shake well before using. $ Given 12/30/2023 2:00 PM CDT 2 drops $ Given 12/30/2023 10:09 AM CDT 2 drops dexAMETHasone Sod Phosphate PF injection 8 mg 8 mg, Intravenous, ONCE, 1 dose, On Fri12/30/23 at 1000, Administer 30 minutes prior to chemotherapy ONLY IF patient did not take oral dexamethasone. $ Given 12/30/2023 10:09 AM CDT 8 mg ondansetron (Zofran) injection 8 mg 8 mg, Intravenous, EVERY 12 HOURS, 2 doses, First dose on Fri12/30/23 at 1000, Last dose on Fri12/30/23 at 2200, Administer over 2 to 5 minutes. Administer 30 minutes prior to chemotherapy. $ Given 12/30/2023 10:10 AM CDT 8 mg documented in this encounter Care Teams Security Solutions Architect Relationship Specialty Start Date End Date Nilam Mayers MD [address] [place] [phone] PCP - General Family Medicine 09/04/23 04/18/24 documented as of this encounter
--- OUTSIDE RECORDS SUMMARY | 2024-08-31 21:28 | XMS_ITS | Encounter Summary ---
Author Organization [facility] Address [address] [place], [place] [address] [address] Care Team Providers Care Medicaid Billing Clerk Name Role Phone Nilam Mayers MD Primary Care Provider +1- [phone] Encounter Details Date Type Department Care Team (Latest Contact Info) Description 12/15/2023 9:19 AM CDT - 12/15/2023 11:59 PM T Hospital Encounter [facility] [address] [place] [address] Unknown, Provider Britni Winston PA-C [address] [place] [address] Discharge Disposition: Home or Self [...] medical care, and heating? 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 - Ophthalmology [address] [place] [address], [place] [phone] Song Hobson MD [address] [place] [address] [place] [address] Pending Results Name Type Priority Associated Diagnoses Date/Time TRANSFUSE RED BLOOD CELL LEUKOREDUCED UNIT(S), 1 Units NSG BLD TRANSFUSION Routine 12/15/2023 12:12 PM CDT TRANSFUSE RED BLOOD CELL LEUKOREDUCED UNIT(S) NSG BLD TRANSFUSION Routine 12/15/2023 1 2:10 PM CDT documented as of this encounter Procedures Procedure Name Priority Date/Time Associated Diagnosis Comments PREPARE RBC LEUKOREDUCED UNIT Routine 12/19/2023 1:17 AM CDT PLATELET COUNT AUTO Routine 12/15/2023 1 2:07 PM CDT Acute myeloid leukemia in remission (HCC) PREPARE RBC LEUKOREDUCED UNIT Routine 12/15/2023 11:57 AM CDT TRANSFUSE PLATELET PHERESIS UNIT(S) Routine 12/15/2023 11:18 AM CDT PREPARE PLATELET PHERESIS UNIT(S) Routine 12/15/2023 11:02 AM CDT URIC ACID BLOOD STAT 12/15/2023 9:39 AM CDT Acute myeloid leukemia in remission (HCC) TYPE + SCREEN PANEL STAT 12/15/2023 9 :39 AM CDT Acute myeloid leukemia in remission (HCC) CBC W AUTO DIFFERENTIAL STAT 12/15/2023 9:39 AM CDT Acute myeloid leukemia in remission (HCC) COMPREHENSIVE METABOLIC PANEL STAT 12/15/2023 9:39 AM CDT Acute myeloid leukemia in remission (HCC) PHOSPHORUS BLOOD STAT 12/15/2023 9:39 AM CDT Acute myeloid leukemia in remission (HCC) MAGNESIUM BLOOD STAT 12/15/2023 9:39 AM CDT Acute myeloid leukemia in remission (HCC) LDH BLOOD STAT 12/15/2023 9:39 AM CDT Acute myeloid leukemia in remission (HCC) documented in this encounter Results * PREPARE (CROSSMATCH) RBC UNIT(S), 1 Units (12/19/2023 1:17 AM CDT) Unit Description AS1 LR PRBC IRR [facility] Unit ABO O [facility] Unit Rh POS [facility] Product Number R04 [facility] Unit Donor # [id number] [facility] Unit Status released [facility] Product Code [id number] [facility] Blood Type Barcode 5100 [facility] Expiration Date [id number] S BLOOD BANK LAB Blood Bank BLOOD SPECIMEN / Unknown 12/15/2023 9:56 AM CDT Britni Winston PA-C LAB - BLOOD BANK ORD ERABLES Performing Organization Address [facility]/ZIP Co de Phone Number [facility] [address] [place] [address], [facility] [phone] * (ABNORMAL) PLATELET COUNT AUTO (12/15/2023 12:07 PM CDT) Pathologist [facility] Platelet Count 49(L) 150 - 420 x10E9/L 12/15/2023 1:16 PM CDT [facility] Blood BLOOD SPECIMEN / Unknown Venipuncture / Unknown 12/15/2023 12:07 PM CDT 12/15/2023 12:21 PM CDT Britni Winston PA-C LAB - HEMATOLOGY ORD ERAJANES Performing Organization Address [facility] Co de Phone Number [facility] [address] [place] [address], [place] [phone] * TRANSFUSE PLATELET PHERESIS UNIT(S) (12/15/2023 12:04 PM CDT) Britni Winston PA-C NURSING - BLOOD PROD TRANSFUSION * TRANSFUSE PLATELET PHERESIS UNIT(S), 1 Units (12/15/2023 12:04 PM CDT) Britni Winston PA-C NURSING - BLOOD PROD TRANSFUSION * PREPARE (CROSSMATCH) RBC UNIT(S), 1 Units (12/15/2023 11:57 AM CDT) Pathologist [facility] Unit Description AS1 LR PRBC IRR [facility] Unit ABO O [facility] Unit Rh POS [facility] Product Number R04 [facility] Unit Donor # [id number] [facility] Unit Status transfused [facility] Product Code [id number] [facility] Blood Type Barcode 5100 [facility] Expiration Date [id number] S [facility] BANK LAB Blood Bank BLOOD SPECIMEN / Unknown 12/15/2023 9:56 AM CDT Britni Winston PA-C LAB - BLOOD BANK ORD ERABLES Performing Organization Address [facility]/ZIP Co de Phone Number [facility] [address] [place] [address], [place] [phone] * PREPARE PLATELET PHERESIS UNIT(S), 1 Units (12/15/2023 11:02 AM CDT) Unit Description LRPLTphere B7 IR [facility] Unit ABO O [facility] Unit Rh POS [facility] Product Number P30 [facility] Unit Donor # [id number] [facility] Unit Status transfused [facility] Product [facility] [id number] [facility] Blood Type Barcode 5100 [facility] Expiration Date [facility] Blood Bank BLOOD SPECIMEN / Unknown 12/15/2023 9:56 AM CDT Britni Winston PA-C LAB - BLOOD BANK ORD ERABLES Performing Organization Address City/[facility]/ZIP Co de Phone Number [facility] [address] [place] [address], [facility] [phone] * URIC ACID BLOOD (12/15/2023 9:39 AM CDT) [facility] Uric Acid 3.5 2.6 - 6.0 mg/dL 12/15/2023 10:26 AM CDT [facility] Blood BLOOD SPECIMEN / Unknown Venipuncture / Unknown 12/15/2023 9:39 AM CDT 12/15/2023 9:44 AM CDT Britni Winston PA-C LAB - CHEMISTRY ORDE RABLES [facility] [address] [place] [address], [place] [phone] * TYPE + SCREEN PANEL (12/15/2023 9:39 AM CDT) Pathologist [facility] Antibody Screen NEG 10:36 AM CDT [facility] ABO Rh O POS 12/15/2023 10:36 AM CDT [facility] Blood Bank BLOOD SPECIMEN / Unknown Venipuncture / Unknown 12/15/2023 9:39 AM CDT 12/15/2023 9:56 AM CDT Britni Winston PA-C LAB - BLOOD BANK ORD ERABLES Performing Organization Address City/[facility]/ZIP Co de Phone Number [facility] [address] [place] [address], [facility] [phone] * LDH BLOOD (12/15/2023 9:39 AM CDT) Pathologist [facility] LDH Total 182 125 - 243 Units/L 12/15/2023 10:26 AM [facility] Blood BLOOD SPECIMEN / Unknown Venipuncture / Unknown 12/15/2023 9:39 AM CDT 12/15/2023 9:44 AM CDT Britni Winston PA-C LAB - CHEMISTRY ORDE RABQI Performing Organization Address City/[facility]/ZIP Co de Phone Number [facility] [address] [place] [address], [facility] [phone] * (ABNORMAL) CBC WITH DIFFERENTIAL (12/15/2023 9:39 AM CDT) [facility] WBC 0.2(LL) 4.0 - 10.7 x10E9/L 12/15/2023 10:24 AM [facility] Comment:No differential repo rted. WBC count <0.5 RBC Count 2.18(L) 3.90 - 5.20 x10E12/L 12/15/2023 10:24 AM [facility] Hemoglobin 6.2(L) 11.9 - 15.8 g/dL 12/15/2023 10:24 AM [facility] Hematocrit 17.3(L) 34.8 - 46.1 % 12/15/2023 10:24 AM [facility] MCV 79.4(L) 80.0 - 98.0 fL 12/15/2023 10:24 AM [facility] MCH 28.4 26.7 - 33.6 pg 12/15/2023 10:24 AM [facility] MCHC 35.8 31.7 - 36.3 g/dL 12/15/2023 10:24 AM [facility] RDW-CV 13.2 11.3 - 14.8 % 12/15/2023 10:24 AM [facility] Platelet Count 15(LL) 150 - 420 x10E9/L 12/15/2023 10:24 AM [facility] MPV 11.2 7.8 - 11.4 fL 12/15/2023 10:24 AM [facility] Preliminary Absolute Neutrophil 12/15/2023 10:24 AM [facility] Comment:Preliminary ANC pend ing manual confirmation Blood BLOOD SPECIMEN / Unknown Venipuncture / Unknown 12/15/2023 9:39 AM CDT 12/15/2023 9:44 AM CDT Britni Winston PA-C LAB - HEMATOLOGY ORD ERABLES Performing Organization Address City/[facility]/ZIP Co de Phone Number [address] [address], [facility] [phone] * MAGNESIUM BLOOD (12/15/2023 9:39 AM CDT) Magnesium 1.9 1.6 - 2.6 mg/dL 12/15/2023 10:26 AM [facility] Blood BLOOD SPECIMEN / Unknown Venipuncture / Unknown 12/15/2023 9:39 AM CDT 12/15/2023 9:44 AM CDT Britni Winston PA-C LAB - CHEMISTRY ORDE RABLES [address] [address], [place] [phone] * (ABNORMAL) COMPREHENSIVE METABOLIC PANEL (12/15/2023 9:39 AM CDT) BUN 10 7 - 26 mg/dL 12/15/2023 10:26 AM [facility] Creatinine 0.63 0.56 - 0.96 mg/dL 12/15/2023 10:26 AM [facility] Sodium 140 136 - 145 mmol/L 12/15/2023 10:26 AM [facility] Potassium 3.8 3.5 - 4.5 mmol/L 12/15/2023 10:26 AM [facility] Chloride 111(H) 98 - 107 mmol/L 12/15/2023 10:26 AM [facility] CO2 20(L) 22 - 29 mmol/L 12/15/2023 10:26 AM [facility] Glucose 151(H) 70 - 115 mg/dL 12/15/2023 10:26 AM [facility] Calcium 9.6 8.4 - 10.2 mg/dL 12/15/2023 10:26 AM [facility] Protein Total 6.5 6.0 - 8.3 g/dL 12/15/2023 10:26 AM [facility] Albumin 3.3(L) 3.4 - 5.0 g/dL 12/15/2023 10:26 AM [facility] Bilirubin Total 0.5 0.2 - 1.2 mg/dL 12/15/2023 10:26 AM [facility] Alkaline Phosphatase 79 40 - 150 U/L 12/15/2023 10:26 AM [facility] ALT 23 5 - 55 U/L 12/15/2023 10:26 AM [facility] AST 12 5 - 34 U/L 12/15/2023 10:26 AM [facility] Anion Gap 9 6 - 16 12/15/2023 10:26 AM [facility] BUN/Creatinine Ratio 16 7 - 23 12/15/2023 10:26 AM [facility] Osmolality Calculated 292 275 - 295 mOsm/kg 12/15/2023 10:26 AM [facility] Albumin/Globulin Ratio 1.0(L) 1.1 - 2.3 12/15/2023 10:26 AM [facility] eGFR by CKD-EPI >90 >=90 mL/min/1.7 3 m2 12/15/2023 10:26 AM CDT [facility] Blood BLOOD SPECIMEN / Unknown Venipuncture / Unknown 12/15/2023 9:39 AM CDT 12/15/2023 9:44 AM CDT Britni Winston PA-C LAB - CHEMISTRY JON NAIDU Performing Organization Address City/[facility]/ZIP Co de Phone Number [address] [address], [place] [phone] * PHOSPHORUS BLOOD (12/15/2023 9:39 AM CDT) Phosphorus 3.3 2.9 - 5.1 mg/dL 12/15/2023 10:26 AM CDT [facility] Blood BLOOD SPECIMEN / Unknown Venipuncture / Unknown 12/15/2023 9:39 AM CDT 12/15/2023 9:44 AM CDT Britni Winston PA-C LAB - CHEMISTRY JON NAIDU Performing Organization Address [facility]/ZIP Co de Phone Number [address] [address], [place] [phone] documented in this encounter Visit Diagnoses Diagnosis 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 documented in this encounter Care Teams Medicaid Billing Clerk Relationship Specialty Start Date End Date Nilam Mayers MD [address] [place] [phone] PCP - General Family Medicine 09/04/23 04/18/24 documented as of this encounter
--- OUTSIDE RECORDS SUMMARY | 2024-08-31 21:28 | XMS_ITS | Encounter Summary ---
Author Organization [facility] Address [address] [place] [address] [place] [address] Care Team Providers Care Complaint Investigator Name Role Phone Nilam Mayers MD Primary Care Provider +1- [phone] Encounter Details Date Type Department Care Team (Latest Contact Info) Description 12/19/2023 Travel Social History Tobacco Use Types Packs/Day [...] and heating? Patient declined 12/01/2023 [facility] of Occupat ional Health - Occupational Stress [...] or slept in a snf (including now)? 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 - Ophthalmology [address] [place] [phone] Song Hobson MD [address] [place] [address] [place] [phone] documented as of this encounter Visit Diagnoses Not on filedocumented in this encounter Additional Health Concerns Infection Onset Date Last Indicated Resolved Time COVID-19 Under Investigation 12/19/2023 12/19/2023 12/19/2023 3:31 PM CDT documented as of this encounter Care Teams Complaint Investigator Relationship Specialty Start Date End Date Nilam Mayers MD [address] [place] [phone] PCP - General Family Medicine 09/04/23 04/18/24 documented as of this encounter
--- OUTSIDE RECORDS SUMMARY | 2024-08-31 21:28 | XMS_ITS | Encounter Summary ---
Author Organization [facility] Address [address] [place], [place] [address] [address] Care Team Providers Care Cigar Packer And Sorter Name Role Phone Nilam Mayers MD Primary Care Provider +1- [phone] Encounter Details Date Type Department Care Team (Late st Contact Info) Description 01/02/2024 Telephone [facility] [address] [place] [address] Vanessa Lindsey Social History Tobacco [...] and heating? Not hard at all 12/30/2023 [facility] of Occupat ional Health - Occupational Stress [...] or slept in a prison (including now)? Yes 12/30/2023 Sex and Gender [...] Contact Info) Description 10/27/2024 10:30 AM LEAN SPECIALIST Appointment [facility] [address] [place] [address] Hussain Carias MD [address] [place] [address] Britni Winston, PABaronC [address] [place] [address] 11/17/2024 9:00 AM LEAN SPECIALIST Office Visit [facility] - Ophthalmology [address] [place] [address], [place] [phone] Song Hobson MD [address] [place] [address] [place] [phone] documented as of this encounter Visit Diagnoses Not on filedocumented in this encounter Care Teams Cigar Packer And Sorter Relationship Specialty Start Date End Date Nilam Mayers MD [address] [place] [phone] PCP - General Family Medicine 09/04/23 04/18/24 documented as of this encounter
--- OUTSIDE RECORDS SUMMARY | 2024-08-31 21:28 | XMS_ITS | Encounter Summary ---
Author Organization [facility] Address [address] [place], [place] [address] [address] Care Team Providers Care Senior Systems Developer Name Role Phone Nilam Mayers MD Primary Care Provider [phone] Encounter Details Date Type Department Care Team (Late st Contact Info) Description 12/08/2023 9:30 AM CDT - 12/08/2023 11:59 PM T Hospital Encounter [facility] [address] [place] [address] Hussain Carias MD [address] [place] [address] Lupe Chamorro, ZACH-DEPENDENCY PROGRAM DIRECTOR [address] [facility] [place] [address] Hematology/Oncology Discharge Disposition: Home or Self Care Social [...] medical care, and heating? Patient declined 12/01/2023 [facility] [place] of Occupat ional Health - Occupational Stress [...] slept in a care home (including now)? Patient declined 12/01/2023 Sex and Gender Information Value Date Recorded Sex Assigned at Not on file Gender Identity Female 02/13/2024 1:12 PM CDT Sexual Orientation Not on file documented as of this encounter Last Filed Vital Signs Vital Sign Reading Time Taken Comments Blood Pressure 120/80 12/08/2023 11:59 AM CDT Pulse 96 12/08/2023 11:59 AM CDT Temperature 36.5 ??C (97.7 ??F) 12/08/2023 1 1:59 AM CDT Respiratory Rate 18 12/08/2023 11:5 9 AM CDT Oxygen Saturation 100% 12/08/2023 11: 59 AM CDT Inhaled Oxygen Concentration - - Weight 106.5 kg (234 lb 14.4 oz) 12/08/2023 9:43 AM CDT Height - - Body Mass Index 42.95 12/03/2023 11:44 AM CDT documented in this [...] as of this encounter Progress Notes * Hussain Carias MD - 12/08/2023 9:30 AM CDT Images from the original note were not included. HEMATOLOGY/ONCOLOGY INPATIENT PROGRESS NOTE Name: Sarah Mckeon Age: [age] year old Date of : 1985 Date of Service: 12/07/2023 Reason for Consult: AML HEMATOLOGY & ONCOLOGY [...] in August of 2023 was admitted to [facility] c/o flu like symptoms and ultimately had marrow biopsy revealing 78% blasts on marrow and flow cytometry confirmed NPM1 mutation. Was sent to [facility] for AML. Completed 7 + 3 [...] She was discharged on 12/06/23. Interval History: -Mora comes to the clinic today for post discharge visit. -Says she had quite a rough time on Friday night after discharge with N/V/D, and abdominal pain. -She layed on the floor for a while and then had to sit on the toilet with a bucket in her lap for quite some time, took anti-emetic (zofran), and was finally able to fall asleep. -Warren better on Friday with just 2 episodes of loose stools and just mild nausea and took zofran again with relief. -Has been able to hold fluids and pills down. -Just feels fatigued but no pain or discomfort. -No other complaints or concerns. Review of Systems: All other systems reviewed and negative. 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 0.9% NaCl IV bolus Allergies No Known Allergies OBJECTIVE Physical Exam Vitals: 12/08/23 0943 12/08/23 1005 12/08/23 1006 12/08/23 1007 BP: (Abnormal) 154/100 104/60 114/73 102/79 Pulse: (Abnormal) 122 107 (Abnormal) 112 (Abnormal) 120 Temp: 97.7 ??F SpO2: 100% Weight: 106.5 kg (234 lb 14.4 oz) Wt Readings from Last 3 Encounters: 12/08/23 106.5 kg (234 lb 14.4 oz) 12/06/23 106.8 kg (235 lb 6.4 oz) 12/01/23 110.1 kg (242 lb 12.8 oz) Karnofsky/ECO/0 General: AAOx4, no acute distress, pleasant and cooperative Head: normocephalic, atraumatic Eyes: conjunctivae clear, extraocular muscles intact Mouth/Throat: oropharynx clear with moist mucous membranes, tiny blood blister to left buccal mucosa Neck: no jugular venous distension, no cervical lymphadenopathy, good range of motion CV: tachycardic and regular rhythm, no murmurs appreciated Resp: good bilateral air entry, no wheezes, no crackles, Abd: normoactive BS, soft, nontender, non distended Extremities: trace+ BLLE , no cyanosis Skin: skin color and turgor normal, no rashes or lesions noted Neuro: moving all extremities well, no focal deficits CVC: tunneled CVC to right chest, dressing is dry and intact without redness, swelling, or stated tenderness Laboratory Results Recent Labs Component Name 12/08/23 1205 12/08/23 1011 12/06/23 0847 12/05/23202112/04/23 1946 12/03/232039 WBC - 1.3* 2.7* 2.1* 3.3* 3.3* RBC - 3.05* 2.98* 2.37* 2.44* 2.44* HGB - 8.8* 8.5* 6.8* 7.2* 7.1* HCT - 24.0* 23.4* 19.0* 19.9* 20.3* MCV - 78.7* 78.5* 80.2 81.6 83.2 MCHC - 36.7* 36.3 35.8 36.2 35.0 PLTCOUNT 29* 9* 28* 33* 48* 54* NEUTPCT - - - 92.7* 89.0* 87.8* LYMPHPCT - - - 5.8* 6.7* 5.8* NEUTABS - 0.98* 1.03* - 1.91 2.93 2.85 LYMPHABS - 0.27* - 0.12* 0.22* 0.19* BASOABS - - - 0.00 0.00 0.01 Recent Labs Component Name 12/08/23 1011 12/05/23202112/04/231945 POTASSIUM 3.1* 4.1 3.8 CO2 18* 16* 15* BUN 22 18 17 CREATININE 0.77 0.71 0.82 EGFR >90 >90 >90 GLUCOSE 165* 293* 256* CALCIUM 9.4 9.0 8.9 MAGNESIUM 2.0 2.4 2.4 PHOS 2.9 2.7* 2.5* ALT 27 AST 12 8 10 ALKPHOS 68 68 69 Recent Labs Component Name 12/08/23 1011 12/05/23202112/04/23 194 MAGNESIUM 2.0 2.4 2.4 Recent Labs Component Name 12/08/23 1011 12/05/23202112/04/231945 PHOS 2.9 2.7* 2.5* Pathology Results Personally reviewed and summarized above [...] and molecular remission after 7+3 -Transferred from [facility] after a BMBX showed 78% blasts [...] HiDAC consolidation. No more IT treatment planned. General transfusion parameters (leukoreduced and irradiated blood [...] that she is nottaking it. - CTM -Will be due week of 12/08/23 4. Elevated ICP - symptom onset during admission, 10/07/23. LP at the time revealed elevated impending pressure, butmeningitis w/u was unrevealing. - Concerns for IIH - Continue acetazolamide 500 BID-now on hold 5. Mouth lesions/ Jaw pain - Currently asymptomatic - has small blood blister to left buccal mucosa, non-painful - Can use magic mouthwash if needed, assess daily for potential treatment PLAN: - C3D6 HiDAC consolidation - Continue OI ppx with valtrex, posaconazole, and levaquin while neutropenic. - Continue dexamethasone eye drops for chemical conjunctivitis ppx while whole high dose cytarabine. - O/P follow up with Heme onc Dr Stafford's clinic for lab checks and transfusion support 2 times a week - 1LNS today in clinic for dehydration/orthostasis S/P diarrhea over the weekend - 40 meq PO KCL in clinic for K+ 3.1 - 1u Plts for Plt Ct 9>29 - Collect stool sample and bring to clinic if diarrhea should continue DISPOSITION: RTC 12/09 and for ABEL, labs, and ?transfusions Total time of visit: 30 minutes including medical discussion and decision making Lupe Chamorro, ZACH, WEAVING MACHINE OPERATOR-C Bone Marrow Transplant [facility] Office #[phone] I independently interviewed and examined Sarah Mckeon with the BMT advanced practice provider. I reviewed my findings and assessment with the advanced practice provider and the patient. I reviewed the note. Please see note for full detail. I agree with the findings and plan of care as documented by the advanced practice provider. 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 She checked temp multiple times. Warren better Friday. Feels fatigued VSS Recent Labs Component Name 12/08/23 1205 12/08/23 1011 WBC - 1.3* HGB - 8.8* HCT - 24.0* PLTCOUNT 29* 9* She will need 3 times a week lab check, symptom eval, and transfusion support. Denies eye symptoms, headache. Check C diff if diarrhea recurs. Hussain Carias MD, MS professor of voiceassistant professor of biochemistry Division of Hematology, Oncology, BMT & Cellular therapies [facility] documented in this encounter Plan of Treatment Upcoming Encounters Date Type Department Care Team (Late st Contact Info) Description 10/27/2024 10:30 AM APPRENTICE JOCKEY Appointment [facility] [address] [place] [address] Hussain Carias MD [address] [place] [address] Britni Winston PA-C [address] [place] [address] 11/17/2024 9:00 AM APPRENTICE JOCKEY Office Visit [facility] - Ophthalmology [address] [facility], [place] [id number] Song Hobson MD [address] [facility] [place] [address] documented as of this encounter Procedures Procedure Name Priority Date/Time Associated Diagnosis Comments PLATELET COUNT AUTO Routine 12/08/2023 1 2:05 PM CDT Acute myeloid leukemia in remission (HCC) TRANSFUSE PLATELET PHERESIS UNIT(S) Routine 12/08/2023 11:15 AM CDT Acute myeloid leukemia in remission (HCC) PREPARE PLATELET PHERESIS UNIT(S) Routine 12/08/2023 11:02 AM CDT Acute myeloid leukemia in remission (HCC) URIC ACID BLOOD STAT 12/08/2023 10:11 AM CDT Acute myeloid leukemia in remission (HCC) DIFFERENTIAL MANUAL STAT 12/08/2023 1 0:11 AM CDT Acute myeloid leukemia in remission (HCC) CBC W AUTO DIFFERENTIAL STAT 12/08/2023 10:11 AM CDT Acute myeloid leukemia in remission (HCC) COMPREHENSIVE METABOLIC PANEL STAT 12/08/2023 10:11 AM CDT Acute myeloid leukemia in remission (HCC) PHOSPHORUS BLOOD STAT 12/08/2023 10:1 1 AM CDT Acute myeloid leukemia in remission (HCC) MAGNESIUM BLOOD STAT 12/08/2023 10:11 AM CDT Acute myeloid leukemia in remission (HCC) LDH BLOOD STAT 12/08/2023 10:11 AM CDT Acute myeloid leukemia in remission (HCC) TYPE + SCREEN PANEL STAT 12/08/2023 9 :59 AM CDT Acute myeloid leukemia in remission (HCC) documented in this encounter Results * PHOSPHORUS BLOOD (12/10/2023 9:00 AM CDT) Pathologist [facility] Phosphorus 3.2 2.9 - 5.1 mg/dL 12/10/2023 9:43 AM CDT [facility] Blood BLOOD SPECIMEN / Unknown Venipuncture / Unknown 12/10/2023 9:00 AM CDT 12/10/2023 9:09 AM CDT Lupe Chamorro [facility] - CHEMISTRY ORDERABLES [address] [address], [facility] [phone] * MAGNESIUM BLOOD (12/10/2023 9:00 AM CDT) [facility] Magnesium 1.7 1.6 - 2.6 mg/dL 12/10/2023 9:43 AM CDT [facility] Blood BLOOD SPECIMEN / Unknown Venipuncture / Unknown 12/10/2023 9:00 AM CDT 12/10/2023 9:09 AM CDT Lupe Chamorro [facility] - CHEMISTRY ORDERABLES [address] [address], [facility] [phone] * (ABNORMAL) COMPREHENSIVE METABOLIC PANEL (12/10/2023 9:00 AM CDT) Pathologist [facility] BUN 11 7 - 26 mg/dL 12/10/2023 9:43 AM CDT [facility] Creatinine 0.64 0.56 - 0.96 mg/dL 12/10/2023 9:43 AM CDT [facility] Sodium 140 136 - 145 mmol/L 12/10/2023 9:43 AM CDT [facility] Potassium 3.4(L) 3.5 - 4.5 mmol/L 12/10/2023 9:43 AM [facility] Chloride 110(H) 98 - 107 mmol/L 12/10/2023 9:43 AM [facility] CO2 19(L) 22 - 29 mmol/L 12/10/2023 9:43 AM [facility] Glucose 157(H) 70 - 115 mg/dL 12/10/2023 9:43 AM [facility] Calcium 9.4 8.4 - 10.2 mg/dL 12/10/2023 9:43 AM [facility] Protein Total 6.3 6.0 - 8.3 g/dL 12/10/2023 9:43 AM [facility] Albumin 3.4 3.4 - 5.0 g/dL 12/10/2023 9:43 AM [facility] Bilirubin Total 0.6 0.2 - 1.2 mg/dL 12/10/2023 9:43 AM [facility] Alkaline Phosphatase 70 40 - 150 U/L 12/10/2023 9:43 AM [facility] ALT 22 5 - 55 U/L 12/10/2023 9:43 AM [facility] AST 14 5 - 34 U/L 12/10/2023 9:43 AM [facility] Anion Gap 11 6 - 16 12/10/2023 9:43 AM [facility] BUN/Creatinine Ratio 17 7 - 23 12/10/2023 9:43 AM [facility] Osmolality Calculated 293 275 - 295 mOsm/kg 12/10/2023 9:43 AM [facility] Albumin/Globulin Ratio 1.2 1.1 - 2.3 12/10/2023 9:43 AM [facility] eGFR by CKD-EPI >90 >=90 mL/min/1.7 3 m2 12/10/2023 9:43 AM [facility] Blood BLOOD SPECIMEN / Unknown Venipuncture / Unknown 12/10/2023 9:00 AM CDT 12/10/2023 9:09 AM [facility] Lupe LOPEZ LAB - CHEMISTRY ORDERABLES [facility] [address] [place] [address], [facility] [phone] * (ABNORMAL) CBC WITH DIFFERENTIAL (12/10/2023 9:00 AM CDT) WBC 0.3(LL) 4.0 - 10.7 x10E9/L 12/10/2023 9:44 AM [facility] Comment:No Manual Differenti al performed. WBC count < 0.5 RBC Count 2.67(L) 3.90 - 5.20 x10E12/L 12/10/2023 9:44 AM [facility] Hemoglobin 7.6(L) 11.9 - 15.8 g/dL 12/10/2023 9:44 AM [facility] Hematocrit 20.9(L) 34.8 - 46.1 % 12/10/2023 9:44 AM [facility] MCV 78.3(L) 80.0 - 98.0 fL 12/10/2023 9:44 AM [facility] MCH 28.5 26.7 - 33.6 pg 12/10/2023 9:44 AM [facility] MCHC 36.4(H) 31.7 - 36.3 g/dL 12/10/2023 9:44 AM [facility] RDW-CV 14.1 11.3 - 14.8 % 12/10/2023 9:44 AM [facility] Platelet Count 17(LL) 150 - 420 x10E9/L 12/10/2023 9:44 AM [facility] MPV 11.0 7.8 - 11.4 fL 12/10/2023 9:44 AM [facility] Preliminary Absolute Neutrophil 12/10/2023 9:44 AM [facility] Comment:Preliminary ANC pend ing manual confirmation Blood BLOOD SPECIMEN / Unknown Venipuncture / Unknown 12/10/2023 9:00 AM CDT 12/10/2023 9:05 AM T Lupe Chamorro APRN-DEPENDENCY PROGRAM DIRECTOR LAB - HEMATOLOG Y ORDERABLES Performing Organization Address City/[facility]/ZIP Co de Phone Number [address] [address], [facility] [phone] * (ABNORMAL) PLATELET COUNT AUTO (12/08/2023 12:05 PM CDT) [facility] Platelet Count 29(L) 150 - 420 x10E9/L 12/08/2023 1:00 PM CDT [facility] Blood BLOOD SPECIMEN / Unknown Venipuncture / Unknown 12/08/2023 12:05 PM CDT 12/08/2023 12:19 PM CDT Lupe Chamorro APRN-DEPENDENCY PROGRAM DIRECTOR LAB - HEMATOLOG Y ORDERABLES Performing Organization Address City/[facility]/ZIP Co de Phone Number [address] [address], [facility] [phone] * TRANSFUSE PLATELET PHERESIS UNIT(S) (12/08/2023 12:00 PM CDT) Lupe Chamorro APRN-DEPENDENCY PROGRAM DIRECTOR NURSING - BLOOD PROD TRANSFUSION * TRANSFUSE PLATELET PHERESIS UNIT(S), 1 Units (12/08/2023 12:00 PM CDT) Lupe Chamorro APRN-DEPENDENCY PROGRAM DIRECTOR NURSING - BLOOD PROD TRANSFUSION * PREPARE PLATELET PHERESIS UNIT(S), 1 Units (12/08/2023 11:02 AM CDT) Pathologist [facility] Unit Description LRPLTphere B7 IR [facility] Unit ABO O [facility] Unit Rh POS [facility] Product Number P31 [facility] Unit Donor # [id number] [facility] Unit Status transfused [facility] Product Code [id number] [facility] Blood Type Barcode 5100 [facility] Expiration Date [id number] S BLOOD BANK LAB Blood Bank BLOOD SPECIMEN / Unknown 12/08/2023 9:59 AM CDT Lupe KARIMIDEPENDENCY PROGRAM DIRECTOR LAB - BLOOD BAN K ORDERABLES [facility] [address] [place] [address], [facility] [phone] * (ABNORMAL) DIFFERENTIAL MANUAL (12/08/2023 10:11 AM CDT) Neutrophil % 79(H) 41 - 74 % 12/08/2023 11:10 AM CDT [facility] Lymphocyte % 21 17 - 47 % 12/08/2023 11:10 AM CDT [facility] Neutrophil Absolute 1.03(L) 1.60 - 7.50 x10E9/L 12/08/2023 11:10 AM CDT [facility] Lymphocyte Absolute 0.27(L) 1.00 - 4.40 x10E9/L 12/08/2023 11:10 AM CDT [facility] RBC Morphology REVIEWED 12/08/2023 11:10 AM CDT [facility] Microcytosis MANY(A) (none) 12/08/2023 11:10 AM CDT [facility] Blood BLOOD SPECIMEN / Unknown Venipuncture / Unknown 12/08/2023 10:11 AM CDT 12/08/2023 10:11 AM CDT Lupe Chamorro [facility] - HEMATOLOG Y ORDERABLES Performing Organization Address City/[facility]/ZIP Co de Phone Number [facility] [address] [place] [address], [facility] [phone] * MAGNESIUM BLOOD (12/08/2023 10:11 AM CDT) Magnesium 2.0 1.6 - 2.6 mg/dL 12/08/2023 10:41 AM CDT [facility] Blood BLOOD SPECIMEN / Unknown Venipuncture / Unknown 12/08/2023 10:11 AM CDT 12/08/2023 10:11 AM CDT Lupe Chamorro [facility] - CHEMISTRY ORDERABLES [facility] [address] [place] [address], [facility] [phone] * (ABNORMAL) COMPREHENSIVE METABOLIC PANEL (12/08/2023 10:11 AM [facility]) BUN 22 7 - 26 mg/dL 12/08/2023 10:41 AM [facility] Creatinine 0.77 0.56 - 0.96 mg/dL 12/08/2023 10:41 AM [facility] Sodium 140 136 - 145 mmol/L 12/08/2023 10:41 AM [facility] Potassium 3.1(L) 3.5 - 4.5 mmol/L 12/08/2023 10:41 AM [facility] Chloride 110(H) 98 - 107 mmol/L 12/08/2023 10:41 AM [facility] CO2 18(L) 22 - 29 mmol/L 12/08/2023 10:41 AM [facility] Glucose 165(H) 70 - 115 mg/dL 12/08/2023 10:41 AM [facility] Calcium 9.4 8.4 - 10.2 mg/dL 12/08/2023 10:41 AM [facility] Protein Total 6.8 6.0 - 8.3 g/dL 12/08/2023 10:41 AM [facility] Albumin 3.5 3.4 - 5.0 g/dL 12/08/2023 10:41 AM [facility] Bilirubin Total 0.7 0.2 - 1.2 mg/dL 12/08/2023 10:41 AM [facility] Alkaline Phosphatase 68 40 - 150 U/L 12/08/2023 10:41 AM [facility] ALT 21 5 - 55 U/L 12/08/2023 10:41 AM [facility] AST 12 5 - 34 U/L 12/08/2023 10:41 AM [facility] Anion Gap 12 6 - 16 12/08/2023 10:41 AM [facility] BUN/Creatinine Ratio 29(H) 7 - 23 12/08/2023 10:41 AM [facility] Osmolality Calculated 297(H) 275 - 295 mOsm/kg 12/08/2023 10:41 AM [facility] Albumin/Globulin Ratio 1.1 1.1 - 2.3 12/08/2023 10:41 AM [facility] eGFR by CKD-EPI >90 >=90 mL/min/1.7 3 m2 12/08/2023 10:41 AM [facility] Blood BLOOD SPECIMEN / Unknown Venipuncture / Unknown 12/08/2023 10:11 AM CDT 12/08/2023 10:11 AM T Lupe Chamorro WOOL CLEANER-DEPENDENCY PROGRAM DIRECTOR LAB - CHEMISTRY ORDERABLES [facility] [address] [place] [address], [facility] [phone] * (ABNORMAL) CBC W AUTO DIFFERENTIAL (12/08/2023 10:11 AM [facility]) WBC 1.3(L) 4.0 - 10.7 x10E9/L 12/08/2023 11:11 AM [facility] RBC Count 3.05(L) 3.90 - 5.20 x10E12/L 12/08/2023 11:11 AM [facility] Hemoglobin 8.8(L) 11.9 - 15.8 g/dL 12/08/2023 11:11 AM [facility] Hematocrit 24.0(L) 34.8 - 46.1 % 12/08/2023 11:11 AM [facility] MCV 78.7(L) 80.0 - 98.0 fL 12/08/2023 11:11 AM [facility] MCH 28.9 26.7 - 33.6 pg 12/08/2023 11:11 AM [facility] MCHC 36.7(H) 31.7 - 36.3 g/dL 12/08/2023 11:11 AM [facility] RDW-CV 14.6 11.3 - 14.8 % 12/08/2023 11:11 AM [facility] Platelet Count 9(LL) 150 - 420 x10E9/L 12/08/2023 11:11 AM CDT [facility] Preliminary Absolute Neutrophil 0.98(L) 1.60 - 7.50 x10E9/L 12/08/2023 11:11 AM CDT [facility] Comment:Preliminary ANC pend ing manual confirmation Blood BLOOD SPECIMEN / Unknown Venipuncture / Unknown 12/08/2023 10:11 AM CDT 12/08/2023 10:11 AM CDT Lupe Chamorro [facility] - HEMATOLOG Y ORDERABLES [address] [address], [facility] [phone] * URIC ACID BLOOD (12/08/2023 10:11 AM CDT) Uric Acid 3.9 2.6 - 6.0 mg/dL 12/08/2023 10:41 AM CDT [facility] Blood BLOOD SPECIMEN / Unknown Venipuncture / Unknown 12/08/2023 10:11 AM CDT 12/08/2023 10:11 AM CDT Lupe Chamorro [facility] - CHEMISTRY ORDERABLES Performing Organization Address [facility]/ZIP Co de Phone Number [address] [address], [place] [phone] * LDH BLOOD (12/08/2023 10:11 AM CDT) [facility] Total 205 125 - 243 Units/L 12/08/2023 10:41 AM CDT [facility] Blood BLOOD SPECIMEN / Unknown Venipuncture / Unknown 12/08/2023 10:11 AM CDT 12/08/2023 10:11 AM CDT Lupe Chamorro [facility] - CHEMISTRY ORDERABLES [address] [address], [facility] [phone] * PHOSPHORUS BLOOD (12/08/2023 10:11 AM CDT) Phosphorus 2.9 2.9 - 5.1 mg/dL 12/08/2023 10:41 AM CDT [facility] Blood BLOOD SPECIMEN / Unknown Venipuncture / Unknown 12/08/2023 10:11 AM CDT 12/08/2023 10:11 AM CDT Lupe LOPEZ LAB - CHEMISTRY ORDERABLES [facility] [address] [place] [address], [facility] [phone] * TYPE + SCREEN PANEL (12/08/2023 9:59 AM CDT) Antibody Screen NEG 10:42 AM CDT [facility] ABO Rh O POS 12/08/2023 10:42 AM CDT [facility] Blood Bank BLOOD SPECIMEN / Unknown Venipuncture / Unknown 12/08/2023 9:59 AM CDT 12/08/2023 9:59 AM CDT Britni Winston PA-C LAB - BLOOD BANK ORD ERABLES [facility] [address] [place] [address], [facility] [phone] documented in this encounter Visit Diagnoses Diagnosis 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 in remission Dehydration Orthostatic hypotension Hypokalemia Hypopotassemia documented in this encounter Administered Medications Inactive Administered Medications - up to 3 most recent administrations Medication Order MAR Action Action Date Dose Rate Site 0.9% NaCl IV bolus 1,000 mL, at 983.61 mL/hr, Administer over 61 Minutes, ONCE, 1 dose, On 12/08/23 at 1030 $ New Bag/Syringe 12/08/2023 10:10 AM CDT 1,000 mL 983.61 mL/hr potassium chloride ER (Klor-Con M) tablet 40 mEq 40 mEq, Oral, ONCE, 1 dose, On 12/08/23 at 1115, Do not crush or chew. $ Given 12/08/2023 11:11 AM CDT 40 mEq documented in this encounter Care Teams Senior Systems Developer Relationship Specialty Start Date End Date Nilam Mayers MD [address] [place] [phone] PCP - General Family Medicine 09/04/23 04/18/24 documented as of this encounter
--- OUTSIDE RECORDS SUMMARY | 2024-08-31 21:28 | XMS_ITS | Encounter Summary ---
Author Organization [facility] Address [address] [place], [place] [address] [address] Care Team Providers Care Cisco Certified Internetwork Expert Name Role Phone Nilam Mayers MD Primary Care Provider +1- [phone] Reason for Visit * Reason Onset Date Comments MEDICATION REFILL 12/15/2023 Encounter Details Date Type Department Care Team (Late st Contact Info) Description 12/15/2023 Refill [facility] [address] [place] [address] Britni Winston, PABaronC [address] [place], [place] [phone] MEDICATION REFILL Social History Tobacco Use Types [...] medical care, and heating? Patient declined 12/01/2023 [facility] [place] of Occupat ional Health - Occupational Stress [...] a [place] [facility] [place] (including now)? Patient declined 12/01/2023 Sex and [...] st Contact Info) Description 10/27/2024 10:30 AM OUTSIDE FOOD SERVER Appointment [facility] [address] [place] [address] Hussain Carias MD [address] [place] [phone] Britni Winston, PA-C [address] [place], [place] [phone] 11/17/2024 9:00 AM OUTSIDE FOOD SERVER Office Visit [facility] - Ophthalmology [address] [place] [address], [place] [phone] Song Hobson MD [facility] DEPT [place] [address] documented as of this encounter Visit Diagnoses Diagnosis 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 documented in this encounter Care Teams Cisco Certified Internetwork Expert Relationship Specialty Start Date End Date Nilam Mayers MD [address] [place] [phone] PCP - General Family Medicine 09/04/23 04/18/24 documented as of this encounter
--- OUTSIDE RECORDS SUMMARY | 2024-08-31 21:28 | XMS_ITS | Encounter Summary ---
Author Organization [facility] Address [address] [place], [place] [address] [address] Care Team Providers Care Teachers' Assistant Name Role Phone Nilam Mayers MD Primary Care Provider +1- [phone] Reason for Visit * Reason Onset Date Comments Patient Requested Call 12/07/2023 Encounter Details Date Type Department Care Team (Late Contact Info) Description 12/07/2023 Telephone [facility] - Hematology/Oncology [address] [place] [address] Velma Toney MD [address] [place] [address] Patient Requested Call Social History Tobacco Use [...] medical care, and heating? Patient declined 12/01/2023 [facility] [place] of Occupat ional Health - Occupational Stress [...] or slept in a fdc (including now)? Patient declined 12/01/2023 Sex and [...] No 12/01/2023 documented as of this encounter Miscellaneous Notes * Telephone Encounter - Velma Toney MD - 12/07/2023 1:57 PM CDT Pt called regarding nausea vomiting overnight with 2 episodes of diarrhea. Temp reported 95 -96. Discussed taking zofran and going to closest ER if persists as they were reluctant to come to [facility] ER Velma Toney MD, PGY-4 Hematology-Oncology Fellow [facility] documented in this encounter Plan of Treatment Upcoming Encounters Date Type Department Care Team (Late st Contact Info) Description 10/27/2024 10:30 AM MANUFACTURING ENGINEER Appointment [facility] [address] [place] [address] Hussain Carias MD [address] [place] [phone] Britni Winston, PA-C [facility] [place] [address] 11/17/2024 9:00 AM MANUFACTURING ENGINEER Office Visit [facility] Group - Ophthalmology [address] [place] [phone] Song Hobson MD [address] [place] [address] [place] [address] documented as of this encounter Visit Diagnoses Not on filedocumented in this encounter Care Teams Teachers' Assistant Relationship Specialty Start Date End Date Nilam Mayers MD [address] [place] [phone] PCP - General Family Medicine 09/04/23 04/18/24 documented as of this encounter
--- OUTSIDE RECORDS SUMMARY | 2024-08-31 21:28 | XMS_ITS | Encounter Summary ---
Author Organization [facility] Address [address] [place], [place] [address] [address] Care Team Providers Care Vendor Analyst Name Role Phone Nilam Mayers MD Primary Care Provider +1- [phone] Encounter Details Date Type Department Care Team (Late st Contact Info) Description 12/06/2023 Orders Only [facility] - Hematology/Oncology [address] [place] [address] Velma Toney MD [address] [place], [place] [phone] Social History Tobacco Use Types Packs/Day Years [...] medical care, and heating? Patient declined 12/01/2023 [facility] [place] of Occupat ional Health - Occupational Stress [...] or slept in a longterm (including now)? Patient declined 12/01/2023 Sex and [...] st Contact Info) Description 10/27/2024 10:30 AM SUPERVISOR LENS GENERATING Appointment [facility] [address] [place] [address] Hussain Carias MD [address] [place] [phone] Britni Winston PA-C [address] [place] [address] 11/17/2024 9:00 AM SUPERVISOR LENS GENERATING Office Visit [facility] - Ophthalmology [address] [place] [address], [place] [phone] Song Hobson MD [facility]5 [facility] [place] [address] documented as of this encounter Visit Diagnoses Not on filedocumented in this encounter Care Teams Vendor Analyst Relationship Specialty Start Date End Date Nilam Mayers MD [address] [place] [phone] PCP - General Family Medicine 09/04/23 04/18/24 documented as of this encounter
--- OUTSIDE RECORDS SUMMARY | 2024-08-31 21:28 | XMS_ITS | Encounter Summary ---
Author Organization [facility] Address [address] [place] [address] [place] [address] Care Team Providers Care Casino Banker Name Role Phone Nilam Mayers MD Primary Care Provider +1- [phone] Encounter Details Date Type Department Care Team (Latest Contact Info) Description 12/13/2023 Travel Social History Tobacco Use Types Packs/Day [...] and heating? Patient declined 12/01/2023 [facility] of Occupat ional Health - Occupational Stress [...] st Contact Info) Description 10/27/2024 10:30 AM AUTO PAINTER Appointment [facility] [address] [place] [address] Hussain Carias MD [address] [place] [address] Britni Winston, PABaronC [address] [place] [address] 11/17/2024 9:00 AM AUTO PAINTER Office Visit [facility] Group - Ophthalmology [address] [place] [phone] Song Hobson MD [address] [place] [address] [place] [phone] documented as of this encounter Visit Diagnoses Not on filedocumented in this encounter Care Teams Casino Banker Relationship Specialty Start Date End Date Nilam Mayers MD [address] [place] [phone] PCP - General Family Medicine 09/04/23 04/18/24 documented as of this encounter
--- OUTSIDE RECORDS SUMMARY | 2024-08-31 21:28 | XMS_ITS | Encounter Summary ---
Author Organization [facility] Address [address] [place], [place] [address] [address] Care Team Providers Care Zigzagger Name Role Phone Nilam Mayers MD Primary Care Provider +1- [phone] Encounter Details Date Type Department Care Team (Latest Contact Info) Description 12/12/2023 9:33 AM CDT - 12/12/2023 11:59 PM CDT Hospital Encounter [facility] [address] [place] [address] Hussain Carias MD [address] [place] [address] Britni Winston, PABaronC [address] [place] [address] Discharge Disposition: Home or Self [...] medical care, and heating? Patient declined 12/01/2023 [facility] [place] of Occupat ional Health - Occupational Stress [...] or slept in a assisted (including now)? Patient declined 12/01/2023 Sex and Gender Information Value Date Recorded Sex Assigned at Not on file Gender Identity Female 02/13/2024 1:12 PM CDT Sexual Orientation Not on file documented as of this encounter Last Filed Vital Signs Vital Sign Reading Time Taken Comments Blood Pressure 128/80 12/12/2023 12:21 PM CDT Pulse 102 12/12/2023 12:21 PM CDT Temperature 36.4 ??C (97.6 ??F) 12/12/2023 1 2:21 PM CDT Respiratory Rate 18 12/12/2023 12:2 1 PM CDT Oxygen Saturation 100% 12/12/2023 12: 21 PM CDT Inhaled Oxygen Concentration - - Weight 108.4 kg (238 lb 14.4 oz) 12/12/2023 9:58 AM CDT Height - - Body Mass Index 43.68 12/03/2023 11:44 AM CDT documented in this [...] st Contact Info) Description 10/27/2024 10:30 AM MARKET RESEARCH MANAGER Appointment [facility] [address] [place] [address] Hussain Carias MD [address] [place] [phone] Britni Winston PA-C [address] [place], [place] [phone] 11/17/2024 9:00 AM MARKET RESEARCH MANAGER Office Visit [facility] Group - Ophthalmology [address] [place] [phone] Song Hobson MD [address] [place] [address] DE[place] [phone] documented as of this encounter Procedures Procedure Name Priority Date/Time Associated Diagnosis Comments PLATELET COUNT AUTO STAT 12/12/2023 1 2:21 PM CDT Acute myeloid leukemia in remission (HCC) TRANSFUSE PLATELET PHERESIS UNIT(S) Routine 12/12/2023 11:30 AM CDT PREPARE PLATELET PHERESIS UNIT(S) Routine 12/12/2023 11:21 AM CDT URIC ACID BLOOD STAT 12/12/2023 10:00 AM CDT Acute myeloid leukemia in remission (HCC) TYPE + SCREEN PANEL STAT 12/12/2023 1 0:00 AM CDT Acute myeloid leukemia in remission (HCC) CBC W AUTO DIFFERENTIAL STAT 12/12/2023 10:00 AM CDT Acute myeloid leukemia in remission (HCC) COMPREHENSIVE METABOLIC PANEL STAT 12/12/2023 10:00 AM CDT Acute myeloid leukemia in remission (HCC) PHOSPHORUS BLOOD STAT 12/12/2023 10:0 0 AM CDT Acute myeloid leukemia in remission (HCC) MAGNESIUM BLOOD STAT 12/12/2023 10:00 AM CDT Acute myeloid leukemia in remission (HCC) LDH BLOOD STAT 12/12/2023 10:00 AM CDT Acute myeloid leukemia in remission (HCC) documented in this encounter Results * TRANSFUSE PLATELET PHERESIS UNIT(S) (12/12/2023 12:23 PM CDT) Britni Winston PA-C NURSING - BLOOD PROD TRANSFUSION * TRANSFUSE PLATELET PHERESIS UNIT(S), 1 Units (12/12/2023 12:23 PM CDT) Britni Winston PA-C NURSING - BLOOD PROD TRANSFUSION * (ABNORMAL) PLATELET COUNT AUTO (12/12/2023 12:21 PM CDT) Platelet Count 52(L) 150 - 420 x10E9/L 12/12/2023 12:39 PM CDT [facility] Blood BLOOD SPECIMEN / Unknown Venipuncture / Unknown 12/12/2023 12:21 PM CDT 12/12/2023 12:28 PM CDT Britni Winston PA-C LAB - HEMATOLOGY ORD ERABLES [facility] [address] [place] [phone], [facility] [phone] * PREPARE PLATELET PHERESIS UNIT(S), 1 Units (12/12/2023 11:21 AM CDT) Unit Description LRPLTphere B7 IR [facility] Unit ABO A [facility] Unit Rh POS [facility] Product Number P32 [facility] Unit Donor # [id number] [facility] Unit Status transfused [facility] Product Code [id number] [facility] Blood Type Barcode 6200 [facility] Expiration Date [facility] Blood Bank BLOOD SPECIMEN / Unknown 12/12/2023 10:11 AM CDT Britni Winston PA-C LAB - BLOOD BANK ORD ERABLES [facility] [address] [place] [address], [place] [phone] * TYPE + SCREEN PANEL (12/12/2023 10:00 AM CDT) Antibody Screen NEG 10:53 AM CDT [facility] ABO Rh O POS 12/12/2023 10:53 AM CDT [facility] Blood Bank BLOOD SPECIMEN / Unknown Venipuncture / Unknown 12/12/2023 10:00 AM CDT 12/12/2023 10:11 AM CDT Britni Winston PA-C LAB - BLOOD BANK ORD ERAJANES [facility] [address] [place] [address], [place] [phone] * URIC ACID BLOOD (12/12/2023 10:00 AM CDT) Uric Acid 3.3 2.6 - 6.0 mg/dL 12/12/2023 10:38 AM CDT [facility] Blood BLOOD SPECIMEN / Unknown Venipuncture / Unknown 12/12/2023 10:00 AM CDT 12/12/2023 10:08 AM CDT Britni Winston PA-C LAB - CHEMISTRY JON NAIDU [address] [address], [facility] [phone] * LDH BLOOD (12/12/2023 10:00 AM CDT) [facility] LDH Total 198 125 - 243 Units/L 12/12/2023 10:38 AM [facility] Blood BLOOD SPECIMEN / Unknown Venipuncture / Unknown 12/12/2023 10:00 AM CDT 12/12/2023 10:08 AM CDT Britni Winston PA-C LAB - CHEMISTRY JON NAIDU Performing Organization Address [facility]/ZIP Co de Phone Number [address] [address], [facility] [phone] * (ABNORMAL) CBC WITH DIFFERENTIAL (12/12/2023 10:00 AM CDT) [facility] WBC 0.2(LL) 4.0 - 10.7 x10E9/L 12/12/2023 10:57 AM [facility] Comment:No differential repo rted. WBC count <0.5 RBC Count 2.49(L) 3.90 - 5.20 x10E12/L 12/12/2023 10:57 AM [facility] Hemoglobin 7.1(L) 11.9 - 15.8 g/dL 12/12/2023 10:57 AM [facility] Hematocrit 19.7(L) 34.8 - 46.1 % 12/12/2023 10:57 AM [facility] MCV 79.1(L) 80.0 - 98.0 fL 12/12/2023 10:57 AM [facility] MCH 28.5 26.7 - 33.6 pg 12/12/2023 10:57 AM [facility] MCHC 36.0 31.7 - 36.3 g/dL 12/12/2023 10:57 AM [facility] RDW-CV 13.8 11.3 - 14.8 % 12/12/2023 10:57 AM CDT [facility] Platelet Count 24(L) 150 - 420 x10E9/L 12/12/2023 10:57 AM CDT [facility] MPV 10.2 7.8 - 11.4 fL 12/12/2023 10:57 AM T [facility] Preliminary Absolute Neutrophil 12/12/2023 10:57 AM T [facility] Blood BLOOD SPECIMEN / Unknown Venipuncture / Unknown 12/12/2023 10:00 AM CDT 12/12/2023 10:08 AM CDT Britni Winston PA-C LAB - HEMATOLOGY ORD ERABLES [address] [address], [place] [phone] * MAGNESIUM BLOOD (12/12/2023 10:00 AM CDT) Magnesium 1.9 1.6 - 2.6 mg/dL 12/12/2023 10:38 AM T [facility] Blood BLOOD SPECIMEN / Unknown Venipuncture / Unknown 12/12/2023 10:00 AM CDT 12/12/2023 10:08 AM CDT Britni Winston PA-C LAB - CHEMISTRY ORDE RABQI [address] [address], [place] [phone] * (ABNORMAL) COMPREHENSIVE METABOLIC PANEL (12/12/2023 10:00 AM CDT) BUN 10 7 - 26 mg/dL 12/12/2023 10:38 AM T [facility] Creatinine 0.62 0.56 - 0.96 mg/dL 12/12/2023 10:38 AM T [facility] Sodium 141 136 - 145 mmol/L 12/12/2023 10:38 AM T [facility] Potassium 3.8 3.5 - 4.5 mmol/L 12/12/2023 10:38 AM [facility] Chloride 110(H) 98 - 107 mmol/L 12/12/2023 10:38 AM [facility] CO2 21(L) 22 - 29 mmol/L 12/12/2023 10:38 AM [facility] Glucose 154(H) 70 - 115 mg/dL 12/12/2023 10:38 AM [facility] Calcium 9.7 8.4 - 10.2 mg/dL 12/12/2023 10:38 AM [facility] Protein Total 6.6 6.0 - 8.3 g/dL 12/12/2023 10:38 AM [facility] Albumin 3.4 3.4 - 5.0 g/dL 12/12/2023 10:38 AM [facility] Bilirubin Total 0.4 0.2 - 1.2 mg/dL 12/12/2023 10:38 AM [facility] Alkaline Phosphatase 78 40 - 150 U/L 12/12/2023 10:38 AM [facility] ALT 26 5 - 55 U/L 12/12/2023 10:38 AM [facility] AST 15 5 - 34 U/L 12/12/2023 10:38 AM [facility] Anion Gap 10 6 - 16 12/12/2023 10:38 AM [facility] BUN/Creatinine Ratio 16 7 - 23 12/12/2023 10:38 AM [facility] Osmolality Calculated 294 275 - 295 mOsm/kg 12/12/2023 10:38 AM [facility] Albumin/Globulin Ratio 1.1 1.1 - 2.3 12/12/2023 10:38 AM [facility] eGFR by CKD-EPI >90 >=90 mL/min/1.7 3 m2 12/12/2023 10:38 AM [facility] Blood BLOOD SPECIMEN / Unknown Venipuncture / Unknown 12/12/2023 10:00 AM CDT 12/12/2023 10:08 AM T Britni Winston PA-C LAB - CHEMISTRY ORDE ELYSIA [facility] [address] [place] [address], [place] [phone] * PHOSPHORUS BLOOD (12/12/2023 10:00 AM CDT) Phosphorus 3.7 2.9 - 5.1 mg/dL 12/12/2023 10:38 AM CDT [facility] Blood BLOOD SPECIMEN / Unknown Venipuncture / Unknown 12/12/2023 10:00 AM CDT 12/12/2023 10:08 AM CDT Britni Winston PA-C LAB - CHEMISTRY JON NAIDU [facility] [address] [place] [address], [place] [phone] documented in this encounter Visit Diagnoses Diagnosis 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 documented in this encounter Administered Medications Inactive Administered Medications - up to 3 most recent administrations Medication Order MAR Action Action Date Dose Rate Site medroxyPROGESTERone (Depo-Provera) injection 150 mg 150 mg, Intramuscular, ONCE, 1 dose, On Fri12/12/23 at 1115, Shake well before using., Restricted to Hematology/Oncology providers. Is medication being prescribed by Whipped Topping Finisher or Oncologist? Yes $ Given 12/12/2023 11:16 AM CDT 150 mg Righ t Arm documented in this encounter Care Teams Zigzagger Relationship Specialty Start Date End Date Nilam Mayers MD [address] [place] [phone] PCP - General Family Medicine 09/04/23 04/18/24 documented as of this encounter
--- OUTSIDE RECORDS SUMMARY | 2024-08-31 21:28 | XMS_ITS | Encounter Summary ---
Author Organization [facility] Address [address] [place] [address] [place] [address] Care Team Providers Care Corporate Ethics Officer Name Role Phone Nilam Mayers MD Primary Care Provider +1- [phone] Encounter Details Date Type Department Care Team (Latest Contact Info) Description 12/22/2023 Travel Social History Tobacco Use Types Packs/Day [...] medical care, and heating? Patient declined 12/01/2023 [facility] [place] of Occupat ional Health - Occupational Stress [...] st Contact Info) Description 10/27/2024 10:30 AM PRIMARY CARE PROVIDER Appointment [facility] [address] [place] [address] Hussain Carias MD [address] [place] [address] Britni Winston, PABaronC [address] [place] [address] 11/17/2024 9:00 AM PRIMARY CARE PROVIDER Office Visit [facility] Group - Ophthalmology [address] [place] [phone] Song Hobson MD [address] [place] [address] DEPT [place] [phone] documented as of this encounter Visit Diagnoses Not on filedocumented in this encounter Care Teams Corporate Ethics Officer Relationship Specialty Start Date End Date Nilam Mayers MD [address] [place] [phone] PCP - General Family Medicine 09/04/23 04/18/24 documented as of this encounter
--- OUTSIDE RECORDS SUMMARY | 2024-08-31 21:28 | XMS_ITS | Encounter Summary ---
Author Organization [facility] Address [address] [place] [address] [place] [address] Care Team Providers Care Parent Partner Name Role Phone Nilam Mayers MD Primary Care Provider +1- [phone] Encounter Details Date Type Department Care Team (Latest Contact Info) Description 12/12/2023 Travel Social History Tobacco Use Types Packs/Day [...] medical care, and heating? Patient declined 12/01/2023 [facility] [place] of Occupat ional Health - Occupational Stress [...] or slept in a detention (including now)? Patient declined 12/01/2023 Sex and [...] st Contact Info) Description 10/27/2024 10:30 AM CONFERENCE CENTER COORDINATOR Appointment [facility] [address] [place] [address] Hussain Carias MD [address] [place] [address] Britni Winston, PABaronC [address] [place] [address] 11/17/2024 9:00 AM CONFERENCE CENTER COORDINATOR Office Visit [facility] Group - Ophthalmology [address] [place] [phone] Song Hobson MD [address] [place] [address] [place] [phone] documented as of this encounter Visit Diagnoses Not on filedocumented in this encounter Care Teams Parent Partner Relationship Specialty Start Date End Date Nilam Mayers MD [address] [place] [phone] PCP - General Family Medicine 09/04/23 04/18/24 documented as of this encounter
--- OUTSIDE RECORDS SUMMARY | 2024-08-31 21:28 | XMS_ITS | Encounter Summary ---
Author Organization [facility] Address [address] [place], [place] [address] [address] Care Team Providers Care Vibration Engineer Name Role Phone Nilam Mayers MD Primary Care Provider [phone]- [phone] Encounter Details Date Type Department Care Team (Late st Contact Info) Description 12/22/2023 8:45 AM CDT - 12/22/2023 11:59 PM T Hospital Encounter [facility] [address] [place] [address] Lupe Chamorro, TANK TRUCK ENGINE MECHANIC-CANCER REGISTRY COORDINATOR [address] [facility] [place], [place] [id number] Discharge Disposition: Home or Self Care Social [...] medical care, and heating? Patient declined 12/01/2023 [facility] of Occupat ional Health - Occupational Stress [...] Sign Reading Time Taken Comments Blood Pressure 118/74 12/22/2023 12:03 PM CDT Pulse 104 12/22/2023 12:03 PM CDT Temperature 36.7 ??C (98 ??F) 12/22/2023 12: 03 PM CDT Respiratory Rate 18 12/22/2023 12:0 3 PM CDT Oxygen Saturation 100% 12/22/2023 12: 03 PM CDT Inhaled Oxygen Concentration - - Weight 107.6 kg (237 lb 3.2 oz) 12/22/2023 9:04 AM CDT Height - - Body Mass [...] 12/01/2023 04/30/2024 posaconazole (Noxafil) 100 MG tabletIndications:Ac [place] myeloid leukemia in remission (HCC) Take 3 (three) tablets by mouth daily with dinner 90 tablet 5 12/15/2023 05/20/2024 potassium chloride ER 10 MEQ tablet Take 2 (two) tablets by mouth once daily 30 tablet 3 12/15/2023 03/02/2024 prochlorperazine (Compazine) 10 MG tablet Take 1 (one) tablet by mouth every 8 hours as needed for Nausea/Vomiting 04/30/2024 valACYclovir (Valtrex) 500 MG tabletIndications:Ac [place] myeloid leukemia in remission (HCC) Take 1 (one) tablet by mouth 2 times daily 60 tablet 11 11/03/2023 08/23/2024 documented as of this encounter Progress Notes * Lupe Chamorro, ZACH-CANCER REGISTRY COORDINATOR - 12/22/2023 9:00 AM CDT Images from the original note were not included. 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 Originally in August of 2023 was admitted to [facility] c/o flu like symptoms and ultimately had marrow biopsy revealing 78% blasts on marrow and flow cytometry confirmed NPM1 mutation. Was sent to [facility] for AML. Completed 7 + 3 [...] She was discharged on 12/06/23. Interval History: -C3 D9 HiDAC -Comes to the clinic today for labs and visit. -Will finish antibiotic (Bactrim) for left axillary abscess this evening. -She now has painful hemorrhoids from being constipated and then having large stools. -She is moving her bowels well now but feels like razors when she moves her bowels. -Suggested she sit in shallow tub of warm water with epsom salts like sitz bath, apply A & D ointment to area as a barrier, can use preparation H cream externally, and may use tucks pads. Instructed not to insert suppositories. -Denies rectal bleeding but aware to call should she begin to have BRBPR. -Denies fever or chills. Her T-Max has been up to 100 but no higher. -Denies N/V/D but some semi-loose stool after constipation. -Eating and drinking well. Review of Systems: Review of Systems Unable to perform ROS: Other Constitutional: Negative. Negative for chills, fever, malaise/fatigue and weight loss. HENT: Positive for congestion. Negative for nosebleeds and sore throat. Eyes: Negative. Negative for blurred vision and double vision. Respiratory: Positive for cough and sputum production. Negative for shortness of breath. Cardiovascular: Negative. Negative for chest pain. Gastrointestinal: Positive for constipation. Negative for abdominal pain, blood in stool, diarrhea,melena, nausea and vomiting. Genitourinary: Negative. Negative for dysuria, frequency, hematuria and urgency. Musculoskeletal: Negative. Negative for back pain and myalgias. Skin: Negative. Negative for rash. Neurological: Negative. Negative for dizziness, tingling and headaches. Endo/Heme/Allergies: Negative. Psychiatric/Behavioral: Negative. 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 .onctx Active Treatment Days for AlfreditoSarah rodrigues Mora (until 12/23/2023) 12/03/2023 ONCOLOGY TREATMENT: IP AML CONSOLIDATION - [...] No Known Allergies OBJECTIVE Physical Exam Vitals: 12/22/23 0904 BP: 121/79 Pulse: (Abnormal) 111 Resp: 18 Temp: 97.9 ??F SpO2: 100% Weight: 107.6 kg (237 lb 3.2 oz) Wt Readings from Last 3 Encounters: 12/22/23 107.6 kg (237 lb 3.2 oz) 12/19/23 108.8 kg (239 lb 14.4 oz) 12/17/23 109.5 kg (241 lb 6.4 oz) PHYSICAL EXAM: Karnofsky/ECO/0 General appearance - [...] no masses or organomegaly; bowel sounds normal Extremities - pedal edema trace +L>R, intact peripheral pulses Skin - normal coloration and turgor, no rashes, no suspicious skin lesions noted Area under left axilla with just a tiny pimple-looking spot left, no open areas, no erythema, swelling, or drainage. CVC: tunneled CVC to right chest, dressing is dry and intact without redness, swelling, or stated tenderness Laboratory Results Recent Labs Component Name 12/22/23 1206 12/22/23 0906 12/19/23 1049 12/19/23 0851 12/17/23 0837 12/08/23 1205 12/08/23 1011 12/06/23 0847 12/05/23202112/04/23 1946 12/03/23 2040 WBC - 1.4* - 0.5* 0.2* - 1.3* - 2.1* 3.3* 3.3* RBC - 2.77* - 2.37* 2.63* - 3.05* - 2.37* 2.44* 2.44* HGB - 7.8* - 6.8* 7.7* - 8.8* - 6.8* 7.2* 7.1* HCT - 22.1* - 18.8* 20.9* - 24.0* - 19.0* 19.9* 20.3* MCV - 79.8* - 79.3* 79.5* - 78.7* - 80.2 81.6 83.2 MCHC - 35.3 - 36.2 36.8* - 36.7* - 35.8 36.2 35.0 PLTCOUNT 52* 16* 33* 12* 37* - 9* - 33* 48* 54* NEUTPCT - - - - - - - - 92.7* 89.0* 87.8* LYMPHPCT - - - - - - - - 5.8* 6.7* 5.8* NEUTABS - 0.41* 0.43* - 0.03* 0.03* - - 0.98* 1.03* - 1.91 2.93 2.85 LYMPHABS - 0.53* - 0.22* - - 0.27* - 0.12* 0.22* 0.19* BASOABS - - - - - - - - 0.00 0.00 0.01 - = values in this interval not displayed. Recent Labs Component Name 12/22/2390512/19/23 0851 12/17/23 0837 POTASSIUM 3.8 4.0 3.8 CO2 19* 21* 18* BUN 9 9 9 CREATININE 0.70 0.68 0.62 EGFR >90 >90 >90 GLUCOSE 168* 127* 162* CALCIUM 9.9 9.8 9.9 MAGNESIUM 1.9 1.9 2.0 PHOS 3.5 3.2 3.4 ALT 21 17 22 AST 15 10 12 ALKPHOS 80 77 91 Recent Labs Component Name 12/22/2390512/19/23 0851 12/17/23 0837 MAGNESIUM 1.9 1.9 2.0 Recent Labs Component Name 12/22/23 0906 12/19/23 0851 12/17/23 0837 PHOS 3.5 3.2 3.4 Pathology Results RVP (12/19/23): negative Radiology Results CXR (12/19/23): Right IJ approach tunneled central venous catheter that terminates at the superior cavoatrial junction. ?? Minimal interstitial prominence in the lung bases, substantially decreased from 09/28/2023. Findings could be direct customer service representative of small airways disease. Otherwise, [...] presenting for C3 ofHiDAC therapy, today is D9 C3. 1. 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 Vaginal Bleeding - Medroxyprogesterone pill discontinued 2 concern for IIH. Confirmed with patient that [...] H cream externally,and/or tucks pads for comfort 6. Left axillary abscess - Began 12/14, worsened 12/16. - Obtained left axillary US 12/16 to look for area of loculation to determine if drainage is necessary. Prelim read did not find area of loculation. - Sent Bactrim DS 2 tabs BID x 5 days, 0 RF (12/19-12/23). - Appears to be resolving per exam 12/18. -Area appears well-healed (12/21) 7. URI - CXR (12/18) negative for acute pulmonary process - RVP neg. - Follow sx, pt instructed to call if her sx worsen or if she develops any fevers. PLAN: - C3 D17 HiDAC consolidation - Continue on Bactrim for abscess tx.(will complete this evening (12/21) - Continue OI ppx with valtrex, posaconazole, and levaquin while neutropenic. - Received 1u Plts today for Plt Ct 16>52 -Suggested A & D ointment as skin barrier for rectal pain, sitz baths, preparation H cream externally, and /or tucks pads for comfort. - No suppositories DISPOSITION: RTC 12/24/23 for labs, ? transfusions and on 12/25 for labs, ABEL, ? Transfusions, and on12/29/23 for C4 HiDAC start, labs, and ABEL. Total time of visit: 25 minutes including medical discussion and decision making Lupe Chamorro APRN, RN HYPERBARIC-C Bone Marrow Transplant [facility] Office #[phone] documented in this encounter Plan of Treatment Upcoming Encounters Date Type Department Care Team (Late st Contact Info) Description 10/27/2024 10:30 AM GENERATOR WORKER Appointment [facility] [address] [place] [address] Hussain Carias MD [address] [place] [phone] Britni Winston PABaronC [address] [place] [address] 11/17/2024 9:00 AM GENERATOR WORKER Office Visit [facility] - Ophthalmology [address] [place] [address] Song Hobson MD [address] [place] [phone] documented as of this encounter Procedures Procedure Name Priority Date/Time Associated Diagnosis Comments PLATELET COUNT AUTO Routine 12/22/2023 1 2:06 PM CDT Acute myeloid leukemia in remission (HCC) TRANSFUSE PLATELET PHERESIS UNIT(S) Routine 12/22/2023 11:17 AM CDT Acute myeloid leukemia in remission (HCC) PREPARE PLATELET PHERESIS UNIT(S) Routine 12/22/2023 11:11 AM CDT Acute myeloid leukemia in remission (HCC) TYPE + SCREEN PANEL STAT 12/22/2023 9 :06 AM CDT Acute myeloid leukemia in remission (HCC) DIFFERENTIAL MANUAL STAT 12/22/2023 9 :06 AM CDT Acute myeloid leukemia in remission (HCC) CBC W AUTO DIFFERENTIAL STAT 12/22/2023 9:06 AM CDT Acute myeloid leukemia in remission (HCC) COMPREHENSIVE METABOLIC PANEL STAT 12/22/2023 9:06 AM CDT Acute myeloid leukemia in remission (HCC) PHOSPHORUS BLOOD STAT 12/22/2023 9:06 AM CDT Acute myeloid leukemia in remission (HCC) MAGNESIUM BLOOD STAT 12/22/2023 9:06 AM CDT Acute myeloid leukemia in remission (HCC) documented in this encounter Results * PHOSPHORUS BLOOD (12/24/2023 8:51 AM CDT) [facility] Signature Phosphorus 3.1 2.9 - 5.1 mg/dL 12/24/2023 9:33 AM CDT [facility] Blood BLOOD SPECIMEN / Unknown Venipuncture / Unknown 12/24/2023 8:51 AM CDT 12/24/2023 8:59 AM CDT Lupe Pedro Pablo TANK TRUCK ENGINE MECHANIC-CANCER REGISTRY COORDINATOR LAB - CHEMISTRY ORDERABLES [address] [address], [facility] [phone] * MAGNESIUM BLOOD (12/24/2023 8:51 AM CDT) Magnesium 2.1 1.6 - 2.6 mg/dL 12/24/2023 9:33 AM [facility] Blood BLOOD SPECIMEN / Unknown Venipuncture / Unknown 12/24/2023 8:51 AM CDT 12/24/2023 8:59 AM CDT Lupe Pedro Pablo [facility] LAB - CHEMISTRY ORDERABLES Performing Organization Address [facility]/ZIP Co de Phone Number [address] [address], [facility] [phone] * (ABNORMAL) COMPREHENSIVE METABOLIC PANEL (12/24/2023 8:51 AM CDT) BUN 10 7 - 26 mg/dL 12/24/2023 9:33 AM [facility] Creatinine 0.68 0.56 - 0.96 mg/dL 12/24/2023 9:33 AM [facility] Sodium 137 136 - 145 mmol/L 12/24/2023 9:33 AM [facility] Potassium 4.1 3.5 - 4.5 mmol/L 12/24/2023 9:33 AM [facility] Chloride 109(H) 98 - 107 mmol/L 12/24/2023 9:33 AM [facility] CO2 18(L) 22 - 29 mmol/L 12/24/2023 9:33 AM [facility] Glucose 165(H) 70 - 115 mg/dL 12/24/2023 9:33 AM [facility] Calcium 9.7 8.4 - 10.2 mg/dL 12/24/2023 9:33 AM [facility] Protein Total 7.5 6.0 - 8.3 g/dL 12/24/2023 9:33 AM [facility] Albumin 3.5 3.4 - 5.0 g/dL 12/24/2023 9:33 AM [facility] Bilirubin Total 0.3 0.2 - 1.2 mg/dL 12/24/2023 9:33 AM [facility] Alkaline Phosphatase 88 40 - 150 U/L 12/24/2023 9:33 AM [facility] ALT 24 5 - 55 U/L 12/24/2023 9:33 AM [facility] AST 19 5 - 34 U/L 12/24/2023 9:33 AM [facility] Anion Gap 10 6 - 16 12/24/2023 9:33 AM [facility] BUN/Creatinine Ratio 15 7 - 23 12/24/2023 9:33 AM [facility] Osmolality Calculated 287 275 - 295 mOsm/kg 12/24/2023 9:33 AM [facility] Albumin/Globulin Ratio 0.9(L) 1.1 - 2.3 12/24/2023 9:33 AM [facility] eGFR by CKD-EPI >90 >=90 mL/min/1.7 3 m2 12/24/2023 9:33 AM [facility] Blood BLOOD SPECIMEN / Unknown Venipuncture / Unknown 12/24/2023 8:51 AM CDT 12/24/2023 8:59 AM T Lupe Chamorro TANK TRUCK ENGINE MECHANIC-CANCER REGISTRY COORDINATOR LAB - CHEMISTRY ORDERABLES Performing Organization Address [facility] Co de Phone Number [address] [address], [facility] [phone] * (ABNORMAL) CBC WITH DIFFERENTIAL (12/24/2023 8:51 AM CDT) WBC 2.8(L) 4.0 - 10.7 x10E9/L 12/24/2023 10:14 AM [facility] RBC Count 2.84(L) 3.90 - 5.20 x10E12/L 12/24/2023 10:14 AM [facility] Hemoglobin 8.1(L) 11.9 - 15.8 g/dL 12/24/2023 10:14 AM [facility] Hematocrit 22.8(L) 34.8 - 46.1 % 12/24/2023 10:14 AM [facility] MCV 80.3 80.0 - 98.0 fL 12/24/2023 10:14 AM [facility] MCH 28.5 26.7 - 33.6 pg 12/24/2023 10:14 AM [facility] MCHC 35.5 31.7 - 36.3 g/dL 12/24/2023 10:14 AM [facility] RDW-CV 14.1 11.3 - 14.8 % 12/24/2023 10:14 AM [facility] Platelet Count 48(L) 150 - 420 x10E9/L 12/24/2023 10:14 AM [facility] MPV 9.6 7.8 - 11.4 fL 12/24/2023 10:14 AM [facility] Preliminary Absolute Neutrophil 0.89(L) 1.60 - 7.50 x10E9/L 12/24/2023 10:14 AM [facility] Comment:Preliminary ANC pend ing manual confirmation NRBC 0.7(H) <=0.0 /100 WBC 12/24/2023 10:14 AM [facility] Blood BLOOD SPECIMEN / Unknown Venipuncture / Unknown 12/24/2023 8:51 AM CDT 12/24/2023 8:59 AM CDT Lupe Chamorro TANK TRUCK ENGINE MECHANIC-CANCER REGISTRY COORDINATOR LAB - HEMATOLOG Y ORDERABLES [facility] [address] [place] [phone], [facility] [phone] * (ABNORMAL) PLATELET COUNT AUTO (12/22/2023 12:06 PM CDT) Platelet Count 52(L) 150 - 420 x10E9/L 12/22/2023 12:46 PM [facility] Blood BLOOD SPECIMEN / Unknown Venipuncture / Unknown 12/22/2023 12:06 PM CDT 12/22/2023 12:33 PM CDT Lupe Chamorro [facility] - HEMATOLOG Y ORDERABLES [facility] [address] [place] [address], [facility] [phone] * TRANSFUSE PLATELET PHERESIS UNIT(S) (12/22/2023 12:03 PM CDT) Lupe Chamorro [facility] NURSING - BLOOD PROD TRANSFUSION * TRANSFUSE PLATELET PHERESIS UNIT(S), 1 Units (12/22/2023 12:03 PM CDT) Lupe Chamorro [facility]ST. [facility] NUR[facility] - BLOOD PROD TRANSFUSION * PREPARE PLATELET PHERESIS UNIT(S), 1 Units (12/22/2023 11:11 AM CDT) Unit Description LRPLTphere B7 IR [facility] B[facility]OD [facility] LAB Unit ABO O [facility] Unit Rh POS [facility] Product Number P31 [facility] B LOOD BANK LAB Unit Donor # [id number] [facility] Unit Status transfused [facility] BLO OD BANK LAB Product Code [id number] [facility] BLO OD BANK LAB Blood Type Barcode 5100 [facility] BLOOD [facility] LAB Expiration Date [id number] S BLOOD BANK LAB Blood Bank BLOOD SPECIMEN / Unknown 12/22/2023 9:20 AM CDT Lupe Chamorro [facility] LAB - BLOOD BAN K ORDERABLES [facility] LAB [address] [place] [address], [facility] [phone] * (ABNORMAL) DIFFERENTIAL MANUAL (12/22/2023 9:06 AM CDT) Neutrophil % 31(L) 41 - 74 % 12/22/2023 10:16 AM CDT [facility] Lymphocyte % 38 17 - 47 % 12/22/2023 10:16 AM [facility] Monocyte % 27(H) 3 - 11 % 12/22/2023 10:16 AM [facility] Other Cells % 4(H) 0% % 12/22/2023 10:16 AM [facility] Comment:Monocytes with somew hat immature appearance - likely related to chemotherapy (NOT blast-like and NOT concerning for monoblasts or promonocytes). Neutrophil Absolute 0.43(L) 1.60 - 7.50 x10E9/L 12/22/2023 10:16 AM [facility] Lymphocyte Absolute 0.53(L) 1.00 - 4.40 x10E9/L 12/22/2023 10:16 AM [facility] Monocyte Absolute 0.38 0.15 - 1.00 x10E9/L 12/22/2023 10:16 AM [facility] RBC Morphology REVIEWED 12/22/2023 10:16 AM [facility] Microcytosis MODERATE(A) (none) 12/22/2023 10:16 AM [facility] Blood BLOOD SPECIMEN / Unknown Venipuncture / Unknown 12/22/2023 9:06 AM CDT 12/22/2023 9:14 AM CDT Lupe LOPEZ LAB - HEMATOLOG Y ORDERABLES Performing Organization Address [facility] Co de Phone Number [facility] [address] [place] [phone], [facility] [phone] * TYPE + SCREEN PANEL (12/22/2023 9:06 AM CDT) Antibody Screen NEG 10:06 AM CDT [facility] LAB ABO Rh O POS 12/22/2023 10:06 AM CDT [facility] LAB Blood Bank BLOOD SPECIMEN / Unknown Venipuncture / Unknown 12/22/2023 9:06 AM CDT 12/22/2023 9:20 AM CDT Lupe LOPEZ LAB - BLOOD BAN K ORDERABLES [facility] [address] [place] [phone], [facility] [phone] * PHOSPHORUS BLOOD (12/22/2023 9:06 AM CDT) Phosphorus 3.5 2.9 - 5.1 mg/dL 12/22/2023 9:42 AM CDT [facility] Blood BLOOD SPECIMEN / Unknown Venipuncture / Unknown 12/22/2023 9:06 AM CDT 12/22/2023 9:14 AM CDT Lupe Chamorro [facility] LAB - CHEMISTRY ORDERABLES [address] [address], [facility] [phone] * MAGNESIUM BLOOD (12/22/2023 9:06 AM CDT) Pathologist [facility] Magnesium 1.9 1.6 - 2.6 mg/dL 12/22/2023 9:42 AM CDT [facility] Blood BLOOD SPECIMEN / Unknown Venipuncture / Unknown 12/22/2023 9:06 AM CDT 12/22/2023 9:14 AM CDT Lupe Chamorro [facility] LAB - CHEMISTRY ORDERABLES [address] [address], [facility] [phone] * (ABNORMAL) COMPREHENSIVE METABOLIC PANEL (12/22/2023 9:06 AM CDT) BUN 9 7 - 26 mg/dL 12/22/2023 9:42 AM CDT [facility] Creatinine 0.70 0.56 - 0.96 mg/dL 12/22/2023 9:42 AM CDT [facility] Sodium 138 136 - 145 mmol/L 12/22/2023 9:42 AM CDT [facility] Potassium 3.8 3.5 - 4.5 mmol/L 12/22/2023 9:42 AM [facility] Chloride 109(H) 98 - 107 mmol/L 12/22/2023 9:42 AM [facility] CO2 19(L) 22 - 29 mmol/L 12/22/2023 9:42 AM [facility] Glucose 168(H) 70 - 115 mg/dL 12/22/2023 9:42 AM [facility] Calcium 9.9 8.4 - 10.2 mg/dL 12/22/2023 9:42 AM [facility] Protein Total 7.0 6.0 - 8.3 g/dL 12/22/2023 9:42 AM [facility] Albumin 3.2(L) 3.4 - 5.0 g/dL 12/22/2023 9:42 AM [facility] Bilirubin Total 0.3 0.2 - 1.2 mg/dL 12/22/2023 9:42 AM [facility] Alkaline Phosphatase 80 40 - 150 U/L 12/22/2023 9:42 AM [facility] ALT 21 5 - 55 U/L 12/22/2023 9:42 AM [facility] AST 15 5 - 34 U/L 12/22/2023 9:42 AM [facility] Anion Gap 10 6 - 16 12/22/2023 9:42 AM [facility] BUN/Creatinine Ratio 13 7 - 23 12/22/2023 9:42 AM [facility] Osmolality Calculated 289 275 - 295 mOsm/kg 12/22/2023 9:42 AM [facility] Albumin/Globulin Ratio 0.8(L) 1.1 - 2.3 12/22/2023 9:42 AM [facility] eGFR by CKD-EPI >90 >=90 mL/min/1.7 3 m2 12/22/2023 9:42 AM [facility] Blood BLOOD SPECIMEN / Unknown Venipuncture / Unknown 12/22/2023 9:06 AM CDT 12/22/2023 9:14 AM [facility] Lupe Chamorro TANK TRUCK ENGINE MECHANIC-CANCER REGISTRY COORDINATOR LAB - CHEMISTRY ORDERABLES [facility] [address] [place] [address], [facility] [phone] * (ABNORMAL) CBC WITH DIFFERENTIAL (12/22/2023 9:06 AM T) WBC 1.4(L) 4.0 - 10.7 x10E9/L 12/22/2023 10:17 AM [facility] RBC Count 2.77(L) 3.90 - 5.20 x10E12/L 12/22/2023 10:17 AM [facility] Hemoglobin 7.8(L) 11.9 - 15.8 g/dL 12/22/2023 10:17 AM [facility] Hematocrit 22.1(L) 34.8 - 46.1 % 12/22/2023 10:17 AM [facility] MCV 79.8(L) 80.0 - 98.0 fL 12/22/2023 10:17 AM [facility] MCH 28.2 26.7 - 33.6 pg 12/22/2023 10:17 AM [facility] MCHC 35.3 31.7 - 36.3 g/dL 12/22/2023 10:17 AM [facility] RDW-CV 14.2 11.3 - 14.8 % 12/22/2023 10:17 AM [facility] Platelet Count 16(LL) 150 - 420 x10E9/L 12/22/2023 10:17 AM [facility] MPV 10.1 7.8 - 11.4 fL 12/22/2023 10:17 AM [facility] Preliminary Absolute Neutrophil 0.41(L) 1.60 - 7.50 x10E9/L 12/22/2023 10:17 AM [facility] Comment:Preliminary ANC pend ing manual confirmation Blood BLOOD SPECIMEN / Unknown Venipuncture / Unknown 12/22/2023 9:06 AM CDT 12/22/2023 9:14 AM T Lupe Pedro Pablo TANK TRUCK ENGINE MECHANIC-CANCER REGISTRY COORDINATOR LAB - HEMATOLOG Y ORDERABLES [facility] [address] [place] [address], [facility] [phone] documented in this encounter Visit Diagnoses Diagnosis 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 in remission documented in this encounter Care Teams Vibration Engineer Relationship Specialty Start Date End Date Nilam Mayers MD [address] [place] [phone] PCP - General Family Medicine 09/04/23 04/18/24 documented as of this encounter
--- OUTSIDE RECORDS SUMMARY | 2024-08-31 21:28 | XMS_ITS | Encounter Summary ---
Author Organization [facility] Address [address] [place] [address] [place] [address] Care Team Providers Care Assembly Mechanic Name Role Phone Nilam Mayers MD Primary Care Provider [phone] Encounter Details Date Type Department Care Team (Latest Contact Info) Description 12/17/2023 Travel Social History Tobacco Use Types Packs/Day [...] medical care, and heating? Patient declined 12/01/2023 [facility] [place] [facility] Occupat ional [facility] - Occupational Stress [...] Contact Info) Description 10/27/2024 10:30 AM DIRECTOR RISK Appointment [facility] [address] [place] [address] Hussain Carias MD [address] [place] [address] Britni Winston, PABaronC [address] [place] [address] 11/17/2024 9:00 AM DIRECTOR RISK Office Visit [facility] - Ophthalmology [address] [place] [phone] Song Hobson MD [address] [place] [address] [place] [phone] documented as of this encounter Visit Diagnoses Not on filedocumented in this encounter Care Teams Assembly Mechanic Relationship Specialty Start Date End Date Nilam Mayers MD [address] [place] [phone] PCP - General Family Medicine 09/04/23 04/18/24 documented as of this encounter
--- OUTSIDE RECORDS SUMMARY | 2024-08-31 21:29 | XMS_ITS | Encounter Summary ---
Author Organization [facility] Address [address] [place], [place] [address] [address] Care Team Providers Care Bibliographic Services Specialist Name Role Phone Nilam Mayers MD Primary Care Provider [phone] Encounter Details Date Type Department Care Team (Late st Contact Info) Description 11/28/2023 Orders Only [facility] - Hematology/Oncology [address] [place] [address] Hussain Carias MD [address] [place] [address] Social History Tobacco Use Types Packs/Day Years Used Date Smoking Tobacco: Former Cigarettes 1 2010 Smokeless Tobacco: Never Alcohol Use Standard Drinks/Week Comments Yes 0 (1 standard drink = 0.6 oz pur e alcohol) occasional AUDIT-C Answer Date Recorded Q1: How often do you have a drink containing alc ohol? Monthly or less 11/03/2023 Q2: How many drinks containi ng alcohol do you have on a typical day when you are drinking? 3 or 4 11/03/2023 Q3: How often do you have si x or more drinks on one occasion? Less than monthly 11/03/2023 Overall Financial Resource Strain (CARDIA) Answe r Date Recorded How hard is it for you to pa y for the very basics like food, housing, medical care, and heating? Not very hard 11/03/2023 [facility] - Occupational Stress Questionnaire Answer Date Recorded Do you feel stress - tense, restless, nervous, or anxious, or unable to sleep at night because your mind is troubled all the time - these days? To some extent 11/03/2023 Hunger Vital Sign Answer Date Recorded Within the past 12 months, y ou worried that your food would run out before you got the money to buy more. Never true 11/03/19 24 Within the past 12 months, t he food you bought just didn't last and you didn't have money to get more. Never true 11/03/2023 PRAPARE - Transportation Answer Date Re corded In the past 12 months, has l ack of transportation kept you from medical appointments or from getting medications? No 10/16 In the past 12 months, has l ack of transportation kept you from meetings, work, or from getting things needed for daily living? No 11/03/2023 Housing Stability Vital Sign Answer Richi e Recorded In the last 12 months, was t here a time when you were not able to pay the mortgage or rent on time? No 11/03/2023 In the last 12 months, how many places have you lived? 1 11/03/2023 In the last 12 months, was t here a time when you did not have a steady place to sleep or slept in a alf (including now)? No 11/03/2023 Sex and Gender Information Value Date Recorded Sex Assigned at Not on file Gender Identity Female 02/13/2024 1:12 PM CDT Sexual Orientation Not on file documented as of this encounter Functional Status Functional Status Response Date of Assess ment Is person deaf or have serious hearing difficult y? No 11/03/2023 Is person blind or have serious difficulty seein g? No 11/03/2023 Does person have serious dif ficulty walking/climbing stairs? No 11/03/2023 Does person have difficulty dressing/bathing? No 11/03/2023 Does person have difficulty doing errands alone? Yes 11/03/2023 Cognitive Status Response Date of Assessm ent Does person have difficulty concentrating/remembering/making decisions? No 11/03/2023 documented as of this encounter Plan of Treatment Upcoming Encounters Date Type Department Care Team (Late st Contact Info) Description 10/27/2024 10:30 AM LUBRICATOR GRANULATOR Appointment [facility] [address] [place] [address] Hussain Carias MD [address] [place] [phone] Britni Winston PA-C [address] [place] [address] 11/17/2024 9:00 AM LUBRICATOR GRANULATOR Office Visit [facility] - Ophthalmology [address] [place] [phone] Song Hobson MD [address] [facility] DEPT [place] [address] documented as of this encounter Visit Diagnoses Not on filedocumented in this encounter Care Teams Bibliographic Services Specialist Relationship Specialty Start Date End Date Nilam Mayers MD [address] [place] [phone] PCP - General Family Medicine 09/04/23 04/18/24 documented as of this encounter
--- OUTSIDE RECORDS SUMMARY | 2024-08-31 21:29 | XMS_ITS | Encounter Summary ---
Author Organization [facility] Address [address] [place], [place] [address] [address] Care Team Providers Care Lan Analyst Name Role Phone Nilam Mayers MD Primary Care Provider [phone] Reason for Visit * Auth/Cert (Routine) Specialty Diagnoses / Procedures Referred By Contac t Referred To Contact Diagnoses AML Referral ID Status Reason Start Date Expiration Date Visits Re quested Visits Authorized [id number] 1 1 Encounter Details Date Type Department Care Team (Latest Contact Info) Description 12/01/2023 8:36 AM CDT - 12/01/2023 5:45 PM CDT Hospital Encounter [facility] [address] [place] [address] Hussain Carias MD [address] [place] [address] Rossana Jay, CHIEF FINANCIAL OFFICER-DATA INTEGRITY SPECIALIST [address] [place] [address] Discharge Disposition: Home or Self [...] you are drinking? Patient does not drink 03/18/202 4 Q3: How often do you have si x or more drinks on one occasion? Never 12/01/2023 Overall Financial Resource Strain (CARDIA) Answe r Date Recorded How hard is it for you to pa y for the very basics like food, housing, medical care, and heating? Patient declined 12/01/2023 [facility] [...] Sign Reading Time Taken Comments Blood Pressure 145/89 12/01/2023 8:46 AM CDT Pulse 111 12/01/2023 8:46 AM CDT Temperature 36.3 ??C (97.4 ??F) 12/01/2023 8:46 AM CD T Respiratory Rate 22 12/01/2023 8:46 AM CDT Oxygen Saturation 99% 12/01/2023 8:46 AM CDT Inhaled Oxygen Concentration - - Weight 110.1 kg (242 lb 12.8 oz) 12/01/2023 8:46 AM CDT Height - - Body Mass Index 44.41 11/19/2023 9:31 AM HEALTH INSPECTOR FOOD documented in this encounter Functional Status Functional [...] No 11/03/2023 documented as of this encounter Medications at [...] Cancer Chemotherapy 100 tablet 11 12/01/2023 04/30/2024 ondansetron (Zofran) 8 MG tabletIndications:Can cer Chemotherapy-Induced Nausea and Vomiting Take one tablet by mouth twice a day 1 hour before midostaurin on days 8 to 21 and one tablet every 12 hours as needed for breakthrough nausea/vomiting. Reasons: Nausea and Vomiting caused by Cancer Chemotherapy 100 tablet 11 11/04/2023 12/06/2023 posaconazole (Noxafil) 100 MG tabletIndications:Acu te myeloid leukemia in remission (HCC) Take 3 (three) tablets by mouth daily with dinner 90 tablet 5 11/03/2023 12/15/2023 potassium chloride ER 10 MEQ tablet Take 2 (two) tablets by mouth once daily 30 tablet 3 11/10/2023 12/15/2023 prochlorperazine (Compazine) 10 MG tabletIndications:Acu te myeloid leukemia in remission (HCC) Take 1 (one) tablet by mouth every 6 hours as needed for Nausea/Vomiting 30 tablet 11 12/01/2023 12/06/2023 prochlorperazine (Compazine) 10 MG tabletIndications:Acu te myeloid leukemia in remission (HCC) Take 1 (one) tablet by mouth every 6 hours as needed for Nausea/Vomiting 30 tablet 11 11/04/2023 12/06/2023 valACYclovir (Valtrex) 500 MG tabletIndications:Acu te myeloid leukemia in remission (HCC) Take 1 (one) tablet by mouth 2 times daily 60 tablet 11 11/03/2023 08/23/2024 documented as of this encounter Progress Notes * Rossana Jay APRN-DATA INTEGRITY SPECIALIST - 12/01/2023 8:43 AM CDT [facility] Hematology/Oncology Clinic Visit Note Date of visit: 12/01/2023 Patient: Sarah Glaserlilia Oncologist: Dr. 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 Was treated with vanc cefepime and then CTX, but had persistent pancytopenia. Bone marrow biopsy was done which showed 78% blast on the bone marrow flow cytometry and confirmed NPM1 mutation. Pt was transferred to [facility] for concern for AML. Count recovery BMBx performed at [facility] on 10/01/23 confirmed no blasts, MRD pending as of 10/13/23. SH - Lives alone with daughter (11 y old); her daughter is currently staying with her dad. No PMHx of cancers; she is adopted so FH is limited. No drugs or smoking or alcohol use. C1 7+3 Induction, 09/06/23 C1 HiDAC, 10/04/23 C2 HiDAC, 11/03/23 INTERIM HISTORY - Mora presents to clinic ambulatory for her routine chemo, labs and visit. - Denies any fever, chills, nausea, vomiting, diarrhea or constipation. Had a formed BM 11/29. - No dizziness, lightheadedness, SOB, cough or any URI symptoms reported. - Vaginal bleeding has resoled, has sporadic spotting, does not need to wear any pads. Last depo shot was 11/12. - Mouth sores and jaw pain has resolved. Continues oral care with salt water mouth rinses. - Appetite is good. Weight is stable. - Legs/knees are a little sore today, says she walked a lot yesterday. - Has no other acute complaints. PERFORMANCE STATUS: KPS 90 / ECOG 1 ONCOLOGY HISTORY: Cancer Staging No matching staging information was found for the patient. 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 PAST MEDICAL HISTORY: Past Medical History: Diagnosis Date ??? NEGATIVE PAST MEDICAL HISTORY - SEE PROBLEM LIST MEDICATIONS: Current Outpatient Medications on File Prior to [...] 60 tablet 11 No current facility-administered medications on file prior to encounter. ALLERGIES: No Known Allergies SOCAL HISTORY: Social History Socioeconomic History ??? Marital status: [...] of Health Financial Resource Strain: Low Risk (11/03/2023) Overall Financial Resource Strain (CARDIA) ??? Difficulty of Paying Living Expenses: Not very hard Food Insecurity: No Food Insecurity (11/03/2023) Hunger Vital Sign ??? Worried About Running Out of Food in the Last Year: Never true ??? Ran Out of Food in the Last Year: Never true Transportation Needs: No Transportation Needs (11/03/2023) PRAPARE - Transportation ??? Lack of Transportation (Medical): No ??? Lack of Transportation (Non-Medical): No Stress: Stress Concern Present (11/03/2023) [employer] [facility] - Occupational Stress Questionnaire ??? Feeling of Stress : To some extent Housing Stability: Low Risk (11/03/2023) Housing Stability Vital Sign ??? Unable to Pay for Housing in the Last Year: No ??? Number of Places Lived in the Last Year: 1 ??? Unstable Housing in the Last Year: No FAMILY HISTORY: Family History Family history unknown: Yes REVIEW OF SYSTEMS: Review of Systems Constitutional: Negative for chills and fever. HENT: Negative for congestion, nosebleeds and sore throat. Eyes: Negative for blurred vision, double vision, pain and redness. Respiratory: Negative for cough, hemoptysis and shortness of breath. Cardiovascular: Negative for chest pain and leg swelling. Gastrointestinal: Negative for abdominal pain, blood in stool, constipation, diarrhea, melena, nausea and vomiting. Genitourinary: Negative for dysuria. Skin: Negative for rash. Neurological: Negative for dizziness and headaches. PHYSICAL EXAM: Wt Readings from Last 3 Encounters: 12/01/23 110.1 kg (242 lb 12.8 oz) 11/28/23 110.6 kg (243 lb 12.8 oz) 11/26/23 109.6 kg (241 lb 9.6 oz) Temp Readings from Last 3 Encounters: 12/01/23 97.4 ??F (Oral) 11/28/23 98.4 ??F 11/26/23 97.9 ??F (Oral) BP Readings from Last 3 Encounters: 12/01/23 145/89 11/28/23 140/87 11/26/23 143/92 Pulse Readings from Last 3 Encounters: 12/01/23 (!) 111 11/28/23 (!) 116 11/26/23 (!) 112 Physical Exam Vitals reviewed. Constitutional: General: She is not in acute distress. Appearance: She is not ill-appearing. HENT: Head: Normocephalic and atraumatic. Nose: No congestion or rhinorrhea. Mouth/Throat: Mouth: No oral lesions. Comments: No oral lesions noted, no pain to mandible and neck on palpation Eyes: General: Lids are normal. Extraocular Movements: Extraocular movements intact. Conjunctiva/sclera: Right eye: Right conjunctiva is not injected. Left eye: Left conjunctiva is not injected. Cardiovascular: Rate and Rhythm: Normal rate and regular rhythm. Pulmonary: Effort: Pulmonary effort is normal. Abdominal: General: Abdomen is flat. Bowel sounds are normal. Palpations: Abdomen is soft. Musculoskeletal: Cervical back: Normal range of motion and neck supple. Right lower leg: No swelling. No edema. Left lower leg: No swelling. No edema. Skin: General: Skin is warm and dry. Neurological: General: No focal deficit present. Mental Status: She is alert and oriented to person, place, and time. Cranial Nerves: No cranial nerve deficit. Motor: No weakness. Psychiatric: Mood and Affect: Mood normal. Behavior: Behavior normal. LABS: Recent Labs Component Name 11/28/23 0837 WBC 3.7* HGB 7.9* HCT 22.2* PLTCOUNT 46* Recent Labs Component Name 11/28/23 0837 11/26/23 0946 11/24/23 1003 11/12/23 1136 11/10/23 1312 11/07/23 2103 11/06/23200711/03/23 0956 10/29/23 1048 10/13/23 2140 10/13/23 1354 10/02/23 2132 10/01/23 2119 09/30/23200809/07/23200709/06/23 21409/05/23 0909 09/04/23 0525 WBC 3.7* 3.0* 2.0* - 1.1* 2.2* 3.5* - 3.2* - 0.5* - 4.1 4.1 - 0.6* - 1.9* RBC 2.79* 2.81* 2.33* - 2.80* 2.82* 2.79* - 2.51* - 2.54* - 2.36* 2.32* - 2.45* - 2.51* HGB 7.9* 8.2* 6.6* - 8.3* 8.2* 8.1* - 7.4* - 7.5* - 7.3* 7.1* - 7.9* - 8.1* HCT 22.2* 22.4* 18.2* - 23.0* 23.4* 23.7* - 20.2* - 20.2* - 21.5* 20.4* - 22.0* - 22.6* MCV 79.6* 79.7* 78.1* - 82.1 83.0 84.9 - 80.5 - 79.5* - 91.1 87.9 - 89.8 - 90.0 MCH 28.3 29.2 28.3 - 29.6 29.1 29.0 - 29.5 - 29.5 - 30.9 30.6 - 32.2 - 32.3 MCHC 35.6 36.6* 36.3 - 36.1 35.0 34.2 - 36.6* - 37.1* - 34.0 34.8 - 35.9 - 35.8 MPV 11.0 11.5* 10.9 - 12.6* 10.9 11.2 - 11.1 - - - 11.4 11.0 - 11.8* - - NEUTPCT 39.9* - - - - 92.8* 87.6* - - - - - - - - - - - MONOPCT 35.3* - - - - 0.9* 4.3 - - - - - - - - - - - EOSPCT 0.0 - - - - 0.0 0.0 - - - - - - - - - - - BASOPCT 0.0 - - - - 0.0 0.0 - - - - - - - - - - - MONO - 0.78 0.74 - - - - - 1.09* - - - 0.78 1.07* - 0.02* - 0.02* EOS - - - - 0.01 - - - - - - - 0.04 0.04 - - - 0.02 BASO - - - - - - - - - - 0.01 - - - - 0.01 - 0.04 - = values in this interval not displayed. Recent Labs Component Name 11/28/23 0837 11/26/23 0946 11/24/23 1003 BUN 7 7 6* CREATININE 0.69 0.63 0.65 NA 142 139 140 POTASSIUM 3.4* 3.3* 3.2* CL 110* 110* 109* CALCIUM 9.3 9.3 9.4 PROT 6.5 6.5 6.3 ALB 3.2* 3.0* 3.0* TBILI 0.4 0.4 0.4 ALKPHOS 79 78 75 ALT 60* 53 76* AST 36* 25 40* ANIONGAP 11 9 9 BCR 10 11 9 OSMOLALITY 295 290 289 EGFR >90 >90 >90 Pathology Results RESULT Normal FISH Result: inv(3) or t(3;3) RPN1::MECOM Fusion: not detected Deletion 5q: not detected Monosomy 7: not detected Deletion 7q: not detected t(8;21) RUNX1::LKAS0C8 Fusion: not detected 11p15 (NUP98) Rearrangement: not detected 11q23 (KMT2A) Rearrangement: not detected inv(16) or t(16;16) CBFB::MYH11 Fusion: not detected INTERPRETATION There was no evidence of RPN1::MECOM fusion due to 3q21/3q26.2 inversion or translocation, deletion 5q31, monosomy 7, deletion 7q31, RUNX1::MTUT2S1 fusion due to translocation (8;21)(q21.3;q22), 11p15 (NUP98) rearrangement, 11q23 KMT2A (MLL) rearrangement, or CBFB::MYH11 fusion due to either 16p13.1/16q22 inversion or translocation. Final Diagnosis Bone marrow, aspirate, clot section, and core biopsy: - Acute myeloid leukemia - See description Peripheral blood smear: - Pancytopenia with circulating blasts - See description at 0832 AP Comment Overall, the bone marrow specimen shows involvement by acute myeloid leukemia. Correlation with disease-defining clinical information and cytogenetic/molecular testing is required for further classification. Peripheral Smear Description Manual Differential Count (100 cells): 11% blasts, 9% neutrophils, 79% lymphocytes, and 1% monocytes. Leukocyte number: decreased. Granulocyte morphology: Blasts are seen and are intermediate in size with fine chromatin and scant to moderate amounts of cytoplasm. No Stef rods are seen. Mature granulocytes are occasionally seen. Lymphocyte morphology: normal. Erythrocyte number: decreased. Erythrocyte morphology: normocytic/normochromic. Anisopoikilocytosis: mild. Polychromasia: mild. Platelet number: decreased. Platelet morphology: normal. Bone Marrow Aspirate Differential count (200 cells): 63.5% blasts, 18% maturing myeloid precursors, 10% erythroid progenitors, 0.5% monocytes, 1% eosinophils, 4.5% lymphocytes, and 2.5% plasma cells. Specimen quality: adequate. Spicules: present. Blasts comprise the majority of cells in the marrow and show similar morphology to those described in the peripheral blood smear. Limited maturing myeloid and erythroid lineage cells are present. Megakaryocytes are readily identified and show some nuclear lobation abnormalities. Storage iron (by special stain): adequate. Sideroblastic iron (by special stain): decreased. Control is appropriately reactive. Bone Marrow Core Biopsy and Clot Section Description Specimen quality: adequate with ~1 cm of evaluable marrow. Cellularity: nearly 100% Nearly all of the marrow cellularity consists of immature mononuclear cells. Background myeloid anderythroid lineage cells are decreased. Megakaryocytes are increased in number and show clustering. No lymphoid aggregates are seen. Clot section marrow particles: absent. Clot section morphology: peripheral blood only. Flow Cytometry Summary Concurrent flow cytometry () shows acute myeloid leukemia. Specimens A Bone Marrow Final Diagnosis Bone marrow, flow cytometric immunophenotyping: [...] were CD34-/CD7+) and are favored to represent benign/regenerative myeloblasts. Electronically signed Radiology Results CT Facial Bones 11/24/23 1. Mild mucosal thickening of the left maxillary sinus. No complications. 2. Mild lucency surrounding the root of the right lateral maxillary incisor tooth, which could represent a small periapical abscess. Please correlate with patient's symptoms. 3. A 1.8 cm nodule in the left lobe of thyroid gland. Recommend a thyroid sonogram to further evaluate if not previously performed. FL LUMBAR PUNCT FOR CHEMO INJ Result Date: 10/01/2023 1. Successful lumbar puncture under fluoroscopic guidance at level L4-5. 2. Successful injection ofintrathecal chemotherapeutic agent. Report dictated by Sivakumar Garrido DO (Ambulance Paramedic). Attending Physician: Dr. Augustine Davison Digging Machine Operator: Dr. Sivakumar Garrido DO (Ambulance Paramedic). The procedure was performed by the: The merchandising assistant, and the attending radiologist was present for all critical and aguirre portions of the procedure, and was immediately available to furnish services during the entire procedure. CT HEAD WO CONTRAST Result Date: 10/01/2023 A tiny amount of subarachnoid hemorrhage in the right central sulcus is less conspicuous, suggesting evolution. CT ANGIO BRAIN AND NECK Result Date: 10/01/2023 1. Previously described trace volume of subarachnoid hemorrhage within the right central sulcus is not well appreciated on the current study. No evidence of acute intracranial hemorrhage on the current study. There appears to be some vascularity within the right central sulcus, likely the source ofthe signal seen on the prior MRI. Findings are nonspecific and could represent a variant venous structure with slow flow. If there is clinical concern, follow-up imaging could be obtained for furtherevaluation. 2. Findings compatible with idiopathic intracranial hypertension, AKA pseudotumor cerebri. Clinical correlation is recommended. 3. No large arterial occlusions or significant stenoses identified [...] Dr. Sivakumar Bhatt by Dr. Davison on 10/01/2023 at 8:20 AM with read back compression and verification. ASSESSMENT Sarah Mckeon is a 38 year old female who transferred to [facility] on 09/03/2023 for suspected AML. Patient started 7 + 3 (cytarabine and idarubicin) on 09/06/2023. Now receiving HiDAC consolidation due to concern for SOAP SLABBER involvement. 1. AML, NPM-1 mut, fav risk in CR and molecular remission after 7+3 -Pancytopenia, neutropenia -Transferred from [facility] after a BMBX showed 78% blasts on bone marrow flow cytometry, final report of biopsy showed 90% blasts consistent with AML. 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 Villareal (rad/onc) offered radiation if sx were progressive. However, pt's eye exams improved per ophtho. Will continue tomonitor and hold on radiation for now. - Count recovery marrow from 10/01/2023 shows CR, MRD flow negative, and NPM1 is negative by PCR. She is in molecular remission from AML standpoint. Plan is to complete 4 cycles of HiDAC consolidation. No more IT treatment planned. Eye symptoms are more likely retinal hemorrhage than leukemic infiltration. If this is leukemic retinal infiltration, HiDAC should suffice. Recommendation is systemic chemo for leukemic retinal infiltration. 2. Vaginal bleeding - Patient experiencing lower abdominal cramping consistent with her menstrual cramps - Reports vaginal bleeding ~1 pad/day - Medroxyprogesterone pill discontinued 10/17 concern for IIH. Confirmed with patient that she is nottaking it. - Keep platelets >30K while pt continues to have sx of bleeding. Platelets Threshold >20K without bleeding. - s/p Depo shot 10/14, 11/12. Will plan monthly Depo shots for now. 3. 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 - Vast improvement of creamy infiltrates of the retina in both eyes since initial exam. - Unclear etiology - Keep platelets >30K - Exam significantly improved per ophtho 10/13. - Ophtho f/u 12/02/23. 4. Dry Eyes - Per ophthalmology, dexamethasone eye drops unlikely to have contributed to her acute eye dryness episode. - For future cycles, plan to c/w dexamethasone eye drops in addition to QID use of artificial tears. Current ophthalmology recs: - Start PFATs at least 6 times daily, AT [facility] QHS OU - Continue diamox 500 BID at this time - F/u with Dr. Hobson 12/02/23 5. Elevated ICP - Noted while admitted to the hospital ~10/07/23; LP revealed opening pressure of 31. Meningitis w/unegative. - Concern for IIH - S/p intrathecal MTX 10/06/23 Continue diamox - Per ophthalmology note 10/13/23, pt's overall eye exam appears to be improving since initial concerns during recent admission. Ophthalmology recs: - Start PFATs at least 6 times daily, AT [facility] QHS OU - Continue diamox 500 BID at this time - F/u with Dr. Hobson 6. Mouth lesions/ jaw pain - Jaw pain has resolved. CT facial bones without concern. - Continue salt water mouth rinses. PLAN: - Urine HCG is negative. - Labs reviewed. WBC is 4.9, hgb 7.7, plt 61, ANC 2580. Platelet is <75 K but ok to proceed withHiDAC per Dr. Carias. - She will get her first dose of Cytarabine in clinic. - Continue OI ppx with Valtrex and posaconazole. No Levaquin needed at this time since ANC >500. - Transfusion parameters: (leukoreduced and irradiated blood products) pRBC to keep Hgb >7 if hemodynamically stable and no bleeding. - Plt threshold >20K since she is not having active vaginal bleeding, increase platelet threshold to >30K if active bleeding. F/u: Admit to 7N for HiDAC. [facility] documented in this encounter Plan of Treatment Upcoming Encounters Date Type Department Care Team (Late st Contact Info) Description 10/27/2024 10:30 AM HEALTH INSPECTOR FOOD Appointment [facility] [address] [place] [address] Hussain Carias MD [facility] [place] [phone] Britni Winston PA-C [address] [place] [address] 11/17/2024 9:00 AM HEALTH INSPECTOR FOOD Office Visit [facility] - Ophthalmology [address] [place] [phone] Song Hobson MD [address] [place] [address] [place] [phone] Scheduled Orders Name Type Priority Associated Diagnoses Order Schedule HCG URINE QUALITATIVE - POINT OF CARE Point of Care Testing STAT Acute myeloid leukemia in remission (HCC) ONCE for 1 Occurrences starting 12/01/2023 until 12/01/2023 documented as of this encounter Procedures Procedure Name Priority Date/Time Associated Diagnosis Comments URINALYSIS W/MICROSCOPIC REFLEX TO CULTURE STAT 12/01/2023 8:52 AM CDT Acute myeloid leukemia in remission (HCC) URIC ACID BLOOD STAT 12/01/2023 8:52 AM CDT Acute myeloid leukemia in remission (HCC) HCG URINE QUALITATIVE Routine 12/01/2023 8:52 AM CDT Acute myeloid leukemia in remission (HCC) CULTURE URINE STAT 12/01/2023 8:52 AM CDT Acute myeloid leukemia in remission (HCC) TYPE + SCREEN PANEL STAT 12/01/2023 8 :52 AM CDT Acute myeloid leukemia in remission (HCC) CBC W AUTO DIFFERENTIAL STAT 12/01/2023 8:52 AM CDT Acute myeloid leukemia in remission (HCC) COMPREHENSIVE METABOLIC PANEL STAT 12/01/2023 8:52 AM CDT Acute myeloid leukemia in remission (HCC) PHOSPHORUS BLOOD STAT 12/01/2023 8:52 AM CDT Acute myeloid leukemia in remission (HCC) MAGNESIUM BLOOD STAT 12/01/2023 8:52 AM CDT Acute myeloid leukemia in remission (HCC) LDH BLOOD STAT 12/01/2023 8:52 AM CDT Acute myeloid leukemia in remission (HCC) documented in this encounter Results * CULTURE URINE (12/01/2023 8:52 AM CDT) Culture Urine 50,000-100,000 CFU/mL urogenital neris 12/02/2023 11:07 PM CDT [facility] MICRO[facility] Urine URINE SPECIMEN OBTAINED BY CLEAN CATCH PROCEDURE / Unknown Collection / Unknown 12/01/2023 8:52 AM CDT 12/01/2023 9:14 AM CDT Hussain Carias MD LAB - MICROBIOLOGY O RDERABLES [facility] MICRO[facility]OLOGY [address] [place] [address], [facility] [phone] * HCG URINE QUALITATIVE (12/01/2023 8:52 AM CDT) Test Urine Negative Negative 12/01/2023 9:12 AM CDT [facility] Urine URINE / Unknown Collection / Unknown 12/01/2023 8:52 AM CDT 12/01/2023 9:02 AM CDT Rossana Jay APRN-DATA INTEGRITY SPECIALIST LAB - URINALYSIS ORD ERABLES Performing Organization Address City/[facility]/ZIP Co de Phone Number [facility] [address] [place] [address], [place] [phone] * (ABNORMAL) URINALYSIS W/MICROSCOPIC REFLEX TO CULTURE (12/01/2023 8:52 AM CDT) Color UA Yellow Straw, Yellow 12/01/2023 9:14 AM CDT [facility] Clarity UA Slt Cloudy(A) Clear 12/01/2023 9:14 AM CDT [facility] Specific [place] UA 1.023 1.005 - 1.030 12/01/2023 9:14 AM T [facility] pH UA 5.0 5.0 - 8.0 pH 12/01/2023 9:14 AM T [facility] Protein UA 2+(A) Negative 12/01/2023 9:14 AM CDT [facility] Glucose UA Negative Negative 12/01/2023 9:14 AM T [facility] Ketone UA Negative Negative 12/01/2023 9:14 AM CDT [facility] Bilirubin UA Negative Negative 12/01/2023 9:14 AM T [facility] Blood UA 1+(A) Negative 12/01/2023 9:14 AM CDT [facility] Nitrite UA Negative Negative 12/01/2023 9:14 AM T [facility] Leukocyte Esterase 1+(A) Negative 12/01/2023 9:14 AM CDT [facility] Urobilinogen UA Negative Negative mg/dL 12/01/2023 9:14 AM CDT [facility] RBC UA 3-5 None Seen, 0-2, 3-5 /HPF 12/01/2023 9:14 AM T [facility] WBC UA 21-50(A) None Seen, 0-5 /HPF 12/01/2023 9:14 AM CDT [facility] Squamous Epithelial Cells UA 0-2 None Seen, 0-2, 3-5 /HPF 12/01/2023 9:14 AM CDT [facility] Mucus UA 1+ /LPF 12/01/2023 9:14 AM CDT [facility] Urine URINE SPECIMEN OBTAINED BY CLEAN CATCH PROCEDURE / Unknown Collection / Unknown 12/01/2023 8:52 AM CDT 12/01/2023 9:01 AM CDT Narrative [facility] - 12/01/2023 9:14 AM CDT Lab Status, Culture Reflex Indicated. Hussain Carias MD LAB - URINALYSIS ORD ERABLES [facility] [address] [place] [phone], [place] [phone] * TYPE + SCREEN PANEL (12/01/2023 8:52 AM CDT) Antibody Screen NEG 9:51 AM CDT [facility] ABO Rh O POS 12/01/2023 9:51 AM CDT [facility] Blood Bank BLOOD SPECIMEN / Unknown Venipuncture / Unknown 12/01/2023 8:52 AM CDT 12/01/2023 9:04 AM CDT Britni Winston PA-C LAB - BLOOD BANK ORD ERABLES [facility] [address] [place] [address], [place] [phone] * URIC ACID BLOOD (12/01/2023 8:52 AM CDT) Uric Acid 4.4 2.6 - 6.0 mg/dL 12/01/2023 9:35 AM T [facility] Blood BLOOD SPECIMEN / Unknown Venipuncture / Unknown 12/01/2023 8:52 AM CDT 12/01/2023 9:01 AM CDT Britni Winston PA-C LAB - CHEMISTRY JON NAIDU Performing Organization Address City/[facility]/ZIP Co de Phone Number [address] [address], [facility] [phone] * (ABNORMAL) LDH BLOOD (12/01/2023 8:52 AM CDT) Pathologist [facility] LDH Total 295(H) 125 - 243 Units/L 12/01/2023 9:35 AM T [facility] Blood BLOOD SPECIMEN / Unknown Venipuncture / Unknown 12/01/2023 8:52 AM CDT 12/01/2023 9:01 AM CDT Britni Winston PA-C LAB - CHEMISTRY JON NAIDU Performing Organization Address City/[facility]/ZIP Co de Phone Number [address] [address], [facility] [phone] * (ABNORMAL) CBC WITH DIFFERENTIAL (12/01/2023 8:52 AM CDT) WBC 4.9 4.0 - 10.7 x10E9/L 12/01/2023 9:29 AM [facility] RBC Count 2.67(L) 3.90 - 5.20 x10E12/L 12/01/2023 9:29 AM [facility] Hemoglobin 7.7(L) 11.9 - 15.8 g/dL 12/01/2023 9:29 AM [facility] Hematocrit 21.9(L) 34.8 - 46.1 % 12/01/2023 9:29 AM [facility] MCV 82.0 80.0 - 98.0 fL 12/01/2023 9:29 AM [facility] MCH 28.8 26.7 - 33.6 pg 12/01/2023 9:29 AM [facility] MCHC 35.2 31.7 - 36.3 g/dL 12/01/2023 9:29 AM [facility] RDW-CV 14.6 11.3 - 14.8 % 12/01/2023 9:29 AM [facility] Platelet Count 61(L) 150 - 420 x10E9/L 12/01/2023 9:29 AM [facility] MPV 10.7 7.8 - 11.4 fL 12/01/2023 9:29 AM [facility] Preliminary Absolute Neutrophil 2.58 1.60 - 7.50 x10E9/L 12/01/2023 9:29 AM [facility] Comment:Preliminary ANC pend ing manual confirmation Neutrophil % 52.9 41.0 - 74.0 % 12/01/2023 9:29 AM [facility] Lymphocyte % 17.2 17.0 - 47.0 % 12/01/2023 9:29 AM [facility] Monocyte % 28.3(H) 3.0 - 11.0 % 12/01/2023 9:29 AM [facility] Eosinophil % 0.0 0.0 - 7.0 % 12/01/2023 9:29 AM [facility] Basophil % 0.0 0.0 - 1.6 % 12/01/2023 9:29 AM [facility] Immature Granulocytes % 1.6(H) 0.0 - 1.0 % 12/01/2023 9:29 AM [facility] Neutrophil Absolute 2.58 1.60 - 7.50 x10E9/L 12/01/2023 9:29 AM [facility] Lymphocyte Absolute 0.84(L) 1.00 - 4.40 x10E9/L 12/01/2023 9:29 AM [facility] Monocyte Absolute 1.38(H) 0.15 - 1.00 x10E9/L 12/01/2023 9:29 AM [facility] Eosinophil Absolute 0.00 0.00 - 0.60 x10E9/L 12/01/2023 9:29 AM CDT [facility] Basophil Absolute 0.00 0.00 - 0.13 x10E9/L 12/01/2023 9:29 AM CDT [facility] NRBC 1.0(H) <=0.0 /100 WBC 12/01/2023 9:29 AM CDT [facility] Blood BLOOD SPECIMEN / Unknown Venipuncture / Unknown 12/01/2023 8:52 AM CDT 12/01/2023 9:07 AM CDT Britni Winston PA-C LAB - HEMATOLOGY ORD ERABLES [address] [address], [place] [phone] * MAGNESIUM BLOOD (12/01/2023 8:52 AM CDT) Magnesium 1.9 1.6 - 2.6 mg/dL 12/01/2023 9:35 AM CDT [facility] Blood BLOOD SPECIMEN / Unknown Venipuncture / Unknown 12/01/2023 8:52 AM CDT 12/01/2023 9:01 AM CDT Britni Winston PA-C LAB - CHEMISTRY ORDE RABLES [address] [address], [place] [phone] * (ABNORMAL) COMPREHENSIVE METABOLIC PANEL (12/01/2023 8:52 AM CDT) BUN 8 7 - 26 mg/dL 12/01/2023 9:35 AM CDT [facility] Creatinine 0.77 0.56 - 0.96 mg/dL 12/01/2023 9:35 AM CDT [facility] Sodium 141 136 - 145 mmol/L 12/01/2023 9:35 AM CDT [facility] Potassium 3.5 3.5 - 4.5 mmol/L 12/01/2023 9:35 AM CDT [facility] Chloride 111(H) 98 - 107 mmol/L 12/01/2023 9:35 AM [facility] CO2 21(L) 22 - 29 mmol/L 12/01/2023 9:35 AM [facility] Glucose 158(H) 70 - 115 mg/dL 12/01/2023 9:35 AM [facility] Calcium 9.3 8.4 - 10.2 mg/dL 12/01/2023 9:35 AM [facility] Protein Total 6.7 6.0 - 8.3 g/dL 12/01/2023 9:35 AM [facility] Albumin 3.4 3.4 - 5.0 g/dL 12/01/2023 9:35 AM [facility] Bilirubin Total 0.5 0.2 - 1.2 mg/dL 12/01/2023 9:35 AM [facility] Alkaline Phosphatase 81 40 - 150 U/L 12/01/2023 9:35 AM [facility] ALT 44 5 - 55 U/L 12/01/2023 9:35 AM [facility] AST 24 5 - 34 U/L 12/01/2023 9:35 AM [facility] Anion Gap 9 6 - 16 12/01/2023 9:35 AM [facility] BUN/Creatinine Ratio 10 7 - 23 12/01/2023 9:35 AM [facility] Osmolality Calculated 294 275 - 295 mOsm/kg 12/01/2023 9:35 AM [facility] Albumin/Globulin Ratio 1.0(L) 1.1 - 2.3 12/01/2023 9:35 AM [facility] eGFR by CKD-EPI >90 >=90 mL/min/1.7 3 m2 12/01/2023 9:35 AM [facility] Blood BLOOD SPECIMEN / Unknown Venipuncture / Unknown 12/01/2023 8:52 AM [facility] 12/01/2023 9:01 AM [facility] Britni Winston PA-C LAB - CHEMISTRY JON NAIDU [facility] [address] [place] [address], [facility] [phone] * (ABNORMAL) PHOSPHORUS BLOOD (12/01/2023 8:52 AM CDT) Phosphorus 2.7(L) 2.9 - 5.1 mg/dL 12/01/2023 9:35 AM CDT [facility] Blood BLOOD SPECIMEN / Unknown Venipuncture / Unknown 12/01/2023 8:52 AM CDT 12/01/2023 9:01 AM CDT Britni Winston PA-C LAB - CHEMISTRY JON NAIDU [facility] [address] [place] [address], [facility] [phone] documented in this encounter Visit Diagnoses Diagnosis [...] Intravenous, ONCE, 1 dose, On Fri12/01/23 at 1015, . PREMEDICATION(s): should be administered at least 30 minutes prior to infusion $ New Bag/Syringe 12/01/2023 10:20 AM CDT 6,700 mg 199 mL/hr dexAMETHasone (Decadron) 0.1 % ophthalmic suspension 2 drop 2 drop, Each Eye, FOUR TIMES DAILY, 4 doses, First dose on Fri12/01/23 at 1000, Last dose on Fri12/02/23 at 0600, Shake well before using. $ Given 12/01/2023 1:51 PM CDT 2 drops $ Given 12/01/2023 9:49 AM CDT 2 drops dexAMETHasone (Decadron) injection 8 mg 8 mg, Intravenous, ONCE, 1 dose, On Fri12/01/23 at 0945, Administer 30 minutes prior to chemotherapy ONLY IF patient did not take oral dexamethasone. $ Given 12/01/2023 9:47 AM CDT 8 mg ondansetron (Zofran) injection 8 mg 8 mg, Intravenous, ONCE, 1 dose, On 12/01/23 at 0945, Administer over 2 to 5 minutes. Administer 30 minutes prior to chemotherapy. $ Given 12/01/2023 9:44 AM CDT 8 mg documented in this encounter Care Teams Lan Analyst Relationship Specialty Start Date End Date Nilam Mayers MD [address] [place] [phone] PCP - General Family Medicine 09/04/23 04/18/24 documented as of this encounter
--- OUTSIDE RECORDS SUMMARY | 2024-08-31 21:29 | XMS_ITS | Encounter Summary ---
Author Organization [facility] Address [address] [place] [address] [place] [address] Care Team Providers Care Rn Embedded Name Role Phone Nilam Mayers MD Primary Care Provider [phone]- [phone] Encounter Details Date Type Department Care Team (Latest Contact Info) Description 12/01/2023 Travel Social History Tobacco Use Types Packs/Day [...] medical care, and heating? Patient declined 12/01/2023 [facility] - Occupational [...] st Contact Info) Description 10/27/2024 10:30 AM COLLECT ON DELIVERY CLERK Appointment [facility] [address] [place] [address] Hussain Carias MD [address] [place] [address] Britni Winston, PABaronC [address] [place] [address] 11/17/2024 9:00 AM COLLECT ON DELIVERY CLERK Office Visit [facility] - Ophthalmology [address] [place] [phone] Song Hobson MD [address] [place] [address] [place] [phone] documented as of this encounter Visit Diagnoses Not on filedocumented in this encounter Care Teams Rn Embedded Relationship Specialty Start Date End Date Nilam Mayers MD [address] [place] [phone] PCP - General Family Medicine 09/04/23 04/18/24 documented as of this encounter
--- OUTSIDE RECORDS SUMMARY | 2024-08-31 21:29 | XMS_ITS | Encounter Summary ---
Author Organization [facility] Address [address] [place] [id number] Care Team Providers Care Change Management Analyst Name Role Phone Nilam Mayers MD Primary Care Provider [phone]- [phone] Encounter Details Date Type Department Care Team (Latest Contact Info) Description 11/17/2023 8:42 AM [employer] - 11/17/2023 11:59 PM [facility] Hospital Encounter [facility] [address] [place] [address] Hussain Carias MD [address] [place] [address] Paula Carrillo APRN-CHU [address] [place] [phone] Discharge Disposition: Home or Self Care Social [...] care, and heating? Not very hard 11/03/2023 [facility] - Occupational Stress [...] slept in a halfway (including now)? No 11/03/2023 Sex and Gender Information Value Date Recorded Sex Assigned at Not on file Gender Identity Female 02/13/2024 1:12 PM CDT Sexual Orientation Not on file documented as of this encounter Last Filed Vital Signs Vital Sign Reading Time Taken Comments Blood Pressure 128/80 11/17/2023 2:09 PM [employer] Pulse 92 11/17/2023 2:09 PM [employer] Temperature 36.7 ??C (98 ??F) 11/17/2023 2:09 PM [employer] Respiratory Rate 18 11/17/2023 2:09 PM [employer] Oxygen Saturation 100% 11/17/2023 2:09 PM [employer] Inhaled Oxygen Concentration - - Weight 109.4 kg (241 lb 1.6 oz) 024 11:57 AM [employer] Height - - Body Mass Index 44.09 11/06/2023 2:31 PM [employer] documented in this encounter Functional Status Functional [...] 11 11/04/2023 12/06/2023 posaconazole (Noxafil) 100 MG tabletIndications: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) Take 3 (three) tablets by mouth daily with dinner 90 tablet 5 11/03/2023 12/15/2023 potassium chloride ER 10 MEQ tablet Take 2 (two) tablets by mouth once daily 30 tablet 3 11/10/2023 12/15/2023 prochlorperazine (Compazine) 10 MG tabletIndications: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) Take 1 (one) tablet by mouth every 6 hours as needed for Nausea/Vomiting 30 tablet 11 11/04/2023 12/06/2023 valACYclovir (Valtrex) 500 MG tabletIndications: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) Take 1 (one) tablet by mouth 2 times daily 60 tablet 11 11/03/2023 08/23/2024 documented as of this encounter Plan of Treatment Upcoming Encounters Date Type Department Care Team (Late st Contact Info) Description 10/27/2024 10:30 AM [employer] Appointment [facility] [address] [place] [address] Hussain Carias MD [address] [place] [phone] Britni Winston PA-C [address] [place], [place] [phone] 11/17/2024 9:00 AM [employer] Office Visit [facility] Physician [facility] - Ophthalmology [address] [place] [address], [place] [phone] Song Hobson MD [address] [place] [address] DE[place] [address] documented as of this encounter Procedures Procedure Name Priority Date/Time Associated Diagnosis Comments TRANSFUSE RED BLOOD CELL LEUKOREDUCED UNIT(S) Routine 11/17/2023 12:19 PM [employer] PREPARE RBC LEUKOREDUCED UNIT Routine 11/17/2023 12:01 PM [employer] URIC ACID BLOOD STAT 11/17/2023 9:46 AM [employer] Acute myeloid leukemia in remission (HCC) TYPE + SCREEN PANEL STAT 11/17/2023 9 :46 AM [employer] Acute myeloid leukemia in remission (HCC) CBC W AUTO DIFFERENTIAL STAT 11/17/2023 9:46 AM [employer] Acute myeloid leukemia in remission (HCC) COMPREHENSIVE METABOLIC PANEL STAT 11/17/2023 9:46 AM [employer] Acute myeloid leukemia in remission (HCC) PHOSPHORUS BLOOD STAT 11/17/2023 9:46 AM [employer] Acute myeloid leukemia in remission (HCC) MAGNESIUM BLOOD STAT 11/17/2023 9:46 AM [employer] Acute myeloid leukemia in remission (HCC) LDH BLOOD STAT 11/17/2023 9:46 AM [employer] Acute myeloid leukemia in remission (HCC) documented in this encounter Results * TRANSFUSE RED BLOOD CELL LEUKOREDUCED UNIT(S) (11/17/2023 2:10 PM [employer]) Paula Carrillo APRN-CHU NURSING - BLOOD AR OD TRANSFUSION * TRANSFUSE RED BLOOD CELL LEUKOREDUCED UNIT(S), 1 Units (11/17/2023 2:10 PM [employer]) Paula Carrillo APRN-PROCESS ENGINEER NURSING - BLOOD AR OD TRANSFUSION * PREPARE (CROSSMATCH) RBC UNIT(S), 1 Units (11/17/2023 12:01 PM [employer]) Unit Description AS1 LR PRBC IRR [facility] BLOOD [facility] Unit ABO O [facility] B[facility]OD [facility] Unit Rh POS [facility] Product Number R04 [facility] B LOOD BANK LAB Unit Donor # [id number] [facility]OD [facility] Unit Status transfused [facility] BLO OD BANK LAB Product Code [id number] [facility] OD BANK LAB Blood Type Barcode 5100 [facility] BLOOD [facility] LAB Expiration Date [id number] S BLOOD BANK LAB Blood Bank BLOOD SPECIMEN / Unknown 11/17/2023 9:54 AM [employer] Paula LOPEZ LAB - BLOOD BANK O RDERABLES [facility]OD [facility] [address] [place] [address], [facility] [phone] * TYPE + SCREEN PANEL (11/17/2023 9:46 AM [employer]) Antibody Screen NEG 10:46 AM [employer] [facility] B[facility] ABO Rh O POS 11/17/2023 10:46 AM [employer] [facility] BLOOD [facility] Blood Bank BLOOD SPECIMEN / Unknown Venipuncture / Unknown 11/17/2023 9:46 AM [employer] 11/17/2023 9:54 AM [employer] Britni Winston PA-C LAB - BLOOD BANK ORD ERABLES Performing Organization Address City/[facility]/ZIP Co de Phone Number [facility] BLOOD [facility] LAB [address] [place] [address], [facility] [phone] * URIC ACID BLOOD (11/17/2023 9:46 AM [employer]) Uric Acid 4.0 2.6 - 6.0 mg/dL 11/17/2023 10:37 AM [facility] Blood BLOOD SPECIMEN / Unknown Venipuncture / Unknown 11/17/2023 9:46 AM [employer] 11/17/2023 10:06 AM [employer] Britni Winston PA-C LAB - CHEMISTRY JON NAIDU Performing Organization Address [facility]/ZIP Co de Phone Number [address] [address], [facility] [phone] * LDH BLOOD (11/17/2023 9:46 AM [employer]) Pathologist [facility] LDH Total 203 125 - 243 Units/L 11/17/2023 10:37 AM [facility] Blood BLOOD SPECIMEN / Unknown Venipuncture / Unknown 11/17/2023 9:46 AM [employer] 11/17/2023 10:06 AM [employer] Britni Winston PA-C LAB - CHEMISTRY MANJULAE RABQI Performing Organization Address [facility]/ZIP Co de Phone Number [address] [address], [place] [phone] * (ABNORMAL) CBC WITH DIFFERENTIAL (11/17/2023 9:46 AM [employer]) WBC 0.4(LL) 4.0 - 10.7 x10E9/L 11/17/2023 10:59 AM [facility] Comment:No Manual Differenti al performed. WBC count < 0.5 RBC Count 2.43(L) 3.90 - 5.20 x10E12/L 11/17/2023 10:59 AM [facility] Hemoglobin 7.0(L) 11.9 - 15.8 g/dL 11/17/2023 10:59 AM [facility] Hematocrit 19.7(L) 34.8 - 46.1 % 11/17/2023 10:59 AM [facility] MCV 81.1 80.0 - 98.0 fL 11/17/2023 10:59 AM [facility] MCH 28.8 26.7 - 33.6 pg 11/17/2023 10:59 AM [facility] MCHC 35.5 31.7 - 36.3 g/dL 11/17/2023 10:59 AM [facility] RDW-CV 12.8 11.3 - 14.8 % 11/17/2023 10:59 AM [facility] Platelet Count 24(L) 150 - 420 x10E9/L 11/17/2023 10:59 AM [facility] MPV 10.1 7.8 - 11.4 fL 11/17/2023 10:59 AM [facility] Blood BLOOD SPECIMEN / Unknown Venipuncture / Unknown 11/17/2023 9:46 AM [employer] 11/17/2023 10:06 AM [employer] Britni Winston PA-C LAB - HEMATOLOGY ORD ERABLES Performing Organization Address [facility]/State/[facility] Co de Phone Number [address] [address] [phone] * MAGNESIUM BLOOD (11/17/2023 9:46 AM [employer]) Magnesium 1.8 1.6 - 2.6 mg/dL 11/17/2023 10:37 AM [facility] Blood BLOOD SPECIMEN / Unknown Venipuncture / Unknown 11/17/2023 9:46 AM [employer] 11/17/2023 10:06 AM [employer] Britni Winston PA-C LAB - CHEMISTRY JON NAIDU [facility] [address] [place] [address], [facility] [phone] * (ABNORMAL) COMPREHENSIVE METABOLIC PANEL (11/17/2023 9:46 AM [facility]) BUN 11 7 - 26 mg/dL 11/17/2023 10:37 AM [facility] Creatinine 0.69 0.56 - 0.96 mg/dL 11/17/2023 10:37 AM [facility] Sodium 142 136 - 145 mmol/L 11/17/2023 10:37 AM [facility] Potassium 3.7 3.5 - 4.5 mmol/L 11/17/2023 10:37 AM [facility] Chloride 113(H) 98 - 107 mmol/L 11/17/2023 10:37 AM [facility] CO2 19(L) 22 - 29 mmol/L 11/17/2023 10:37 AM [facility] Glucose 186(H) 70 - 115 mg/dL 11/17/2023 10:37 AM [facility] Calcium 9.2 8.4 - 10.2 mg/dL 11/17/2023 10:37 AM [facility] Protein Total 6.6 6.0 - 8.3 g/dL 11/17/2023 10:37 AM [facility] Albumin 3.4 3.4 - 5.0 g/dL 11/17/2023 10:37 AM [facility] Bilirubin Total 0.5 0.2 - 1.2 mg/dL 11/17/2023 10:37 AM [facility] Alkaline Phosphatase 75 40 - 150 U/L 11/17/2023 10:37 AM [facility] ALT 29 5 - 55 U/L 11/17/2023 10:37 AM [facility] AST 16 5 - 34 U/L 11/17/2023 10:37 AM [facility] Anion Gap 10 6 - 16 11/17/2023 10:37 AM [facility] BUN/Creatinine Ratio 16 7 - 23 11/17/2023 10:37 AM [employer] [facility] Osmolality Calculated 298(H) 275 - 295 mOsm/kg 11/17/2023 10:37 AM [facility] Albumin/Globulin Ratio 1.1 1.1 - 2.3 11/17/2023 10:37 AM [facility] eGFR by CKD-EPI >90 >=90 mL/min/1.7 3 m2 11/17/2023 10:37 AM [facility] Blood BLOOD SPECIMEN / Unknown Venipuncture / Unknown 11/17/2023 9:46 AM [employer] 11/17/2023 10:06 AM [employer] Britni Winston PA-C LAB - CHEMISTRY JON NAIDU [address] [address], [facility] [phone] * (ABNORMAL) PHOSPHORUS BLOOD (11/17/2023 9:46 AM [employer]) Phosphorus 2.7(L) 2.9 - 5.1 mg/dL 11/17/2023 10:37 AM [facility] Blood BLOOD SPECIMEN / Unknown Venipuncture / Unknown 11/17/2023 9:46 AM [employer] 11/17/2023 10:06 AM [employer] Britni Winston PA-C LAB - CHEMISTRY JON NAIDU [address] [address], [facility] [phone] documented in this encounter Visit Diagnoses Diagnosis 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 documented in this encounter Care Teams Change Management Analyst Relationship Specialty Start Date End Date Nilam Mayers MD [address] [place] [phone] PCP - General Family Medicine 09/04/23 04/18/24 documented as of this encounter
--- OUTSIDE RECORDS SUMMARY | 2024-08-31 21:29 | XMS_ITS | Encounter Summary ---
Author Organization [facility] Address [address] [place], [place] [address] [address] Care Team Providers Care Fryer Operator Name Role Phone Nilam Mayers MD Primary Care Provider +1- [phone] Reason for Referral * Radiology Services (Emergency) - Closed Specialty Diagnoses / Procedures Referred By Ratna sher Referred To Contact Hematology-Oncology Diagnoses Acute myeloid leukemia in remission (HCC) Procedures CT FACIAL BONES WO CONTRAST Britni Winston PA-C [address] [place] [address] Referral ID Status Reason Start Date Expiration Date Visits Re quested Visits Authorized [id number] Closed 11/21/2023 11/20/2024 1 1 Reason for Visit * Radiology Services (Emergency) - Closed Specialty Diagnoses / Procedures Referred By Ratna sher Referred To Contact Hematology-Oncology Diagnoses Acute myeloid leukemia in remission (HCC) Procedures CT FACIAL BONES WO CONTRAST Britni Winston PA-C [address] [place] [address] Referral ID Status Reason Start Date Expiration Date Visits Re quested Visits Authorized [id number] Closed 11/21/2023 11/20/2024 1 1 Encounter Details Date Type Department Care Team (Latest Contact Info) Description 11/24/2023 1:00 PM CDT - 11/24/2023 11:59 PM CDT Hospital Encounter [facility] [address] [place] [phone] Britni Winston, PABaronC [address] [place] [address] Discharge Disposition: Home or Self Care Social [...] care, and heating? Not very hard 11/03/2023 [facility] - [...] slept in a snf (including now)? No 11/03/2023 Sex and Gender [...] 11/04/2023 12/06/2023 posaconazole (Noxafil) 100 MG tabletIndications:Ac [place] myeloid leukemia in remission (HCC) Take 3 (three) tablets by mouth daily with dinner 90 tablet 5 11/03/2023 12/15/2023 potassium chloride ER 10 MEQ tablet Take 2 (two) tablets by mouth once daily 30 tablet 3 11/10/2023 12/15/2023 prochlorperazine (Compazine) 10 MG tabletIndications:Ac [place] myeloid leukemia in remission (HCC) Take 1 (one) tablet by mouth every 6 hours as needed for Nausea/Vomiting 30 tablet 11 11/04/2023 12/06/2023 valACYclovir (Valtrex) 500 MG tabletIndications:Ac [place] myeloid leukemia in remission (HCC) Take 1 (one) tablet by mouth 2 times daily 60 tablet 11 11/03/2023 08/23/2024 documented as of this encounter Plan of Treatment Upcoming Encounters Date Type Department Care Team (Late st Contact Info) Description 10/27/2024 10:30 AM CHEMICAL EQUIPMENT SALES ENGINEER Appointment [facility] [address] [place] [address] Hussain Carias MD [address] [place] [phone] Britni Winston PABaronC [address] [place] [address] 11/17/2024 9:00 AM CHEMICAL EQUIPMENT SALES ENGINEER Office Visit [facility] - Ophthalmology [address] [place] [phone] Song Hobson MD [address] [place] [address] [place] [phone] documented as of this encounter Procedures Procedure Name Priority Date/Time Associated Diagnosis Comments CT FACIAL BONES WO CONTRAST STAT 11/24/2023 2:09 PM CDT Acute myeloid leukemia in remission (HCC) documented in this encounter Results * CT FACIAL BONES WO CONTRAST (11/24/2023 [...] DATE/TIME OF EXAM: ??11/24/2023 2:11 PM, LOCATION ??[facility] 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 in remission [...] CONTRAST, DATE/TIME OF EXAM: 42:11 PM, LOCATION [facility] 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 in remission [...] 2:23 PM Britni Winston PA-C CT ORDERABLES documented in this encounter Visit Diagnoses Diagnosis 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 documented in this encounter Care Teams Fryer Operator Relationship Specialty Start Date End Date Nilam Mayers MD [address] [place] [phone] PCP - General Family Medicine 09/04/23 04/18/24 documented as of this encounter
--- OUTSIDE RECORDS SUMMARY | 2024-08-31 21:29 | XMS_ITS | Encounter Summary ---
Author Organization [facility] Address [address] [place] [address] Care Team Providers Care Director Dietetics Department Name Role Phone Nilam Mayers MD Primary Care Provider +1- [phone] Encounter Details Date Type Department Care Team (Latest Contact Info) Description 11/14/2023 11:47 AM REGISTERED DIETICIAN - 11/14/2023 11:59 PM [facility] Hospital Encounter [facility] [address] [place] [address] Hussain Carias MD [address] [place] [address] Britni Winston, PABaronC [address] [...] care, and heating? Not very hard 11/03/2023 [facility] of Occupat ional Health - Occupational Stress [...] slept in a prison (including now)? No 11/03/2023 Sex and Gender Information Value Date Recorded Sex Assigned at Not on file Gender Identity Female 02/13/2024 1:12 PM CDT Sexual Orientation Not on file documented as of this encounter Last Filed Vital Signs Vital Sign Reading Time Taken Comments Blood Pressure 118/81 11/14/2023 3:43 PM REGISTERED DIETICIAN Pulse 99 11/14/2023 3:43 PM REGISTERED DIETICIAN Temperature 36.5 ??C (97.7 ??F) 11/14/2023 3:43 PM CS T Respiratory Rate 16 11/14/2023 3:43 PM REGISTERED DIETICIAN Oxygen Saturation 100% 11/14/2023 3:43 PM REGISTERED DIETICIAN Inhaled Oxygen Concentration - - Weight 109.5 kg (241 lb 6.4 oz) 11/14/2023 1:08 PM REGISTERED DIETICIAN Height - - Body Mass Index 44.14 11/06/2023 2:31 PM REGISTERED DIETICIAN documented in this encounter Functional Status Functional [...] 11/04/2023 12/06/2023 posaconazole (Noxafil) 100 MG tabletIndications:Ac [place] myeloid leukemia in remission (HCC) Take 3 (three) tablets by mouth daily with dinner 90 tablet 5 11/03/2023 12/15/2023 potassium chloride ER 10 MEQ tablet Take 2 (two) tablets by mouth once daily 30 tablet 3 11/10/2023 12/15/2023 prochlorperazine (Compazine) 10 MG tabletIndications:Ac [place] 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) Take 1 (one) tablet by mouth every 6 hours as needed for Nausea/Vomiting 30 tablet 11 11/04/2023 12/06/2023 valACYclovir (Valtrex) 500 MG tabletIndications:Ac [place] myeloid leukemia in remission (HCC) Take 1 (one) tablet by mouth 2 times daily 60 tablet 11 11/03/2023 08/23/2024 documented as of this encounter Plan of Treatment Upcoming Encounters Date Type Department Care Team (Late st Contact Info) Description 10/27/2024 10:30 AM REGISTERED DIETICIAN Appointment [facility] [address] [place], [place] [phone] Hussain Carias MD [address] [place] [phone] Britni Winston PA-C [address] [place], [place] [phone] 11/17/2024 9:00 AM REGISTERED DIETICIAN Office Visit [facility] - Ophthalmology [address] [place] [phone] Song Hobson MD [address] [place] [address] [place] [address] documented as of this encounter Procedures Procedure Name Priority Date/Time Associated Diagnosis Comments CBC W AUTO DIFFERENTIAL STAT 11/14/2023 3:48 PM REGISTERED DIETICIAN Acute myeloid leukemia in remission (HCC) TRANSFUSE PLATELET PHERESIS UNIT(S) Routine 11/14/2023 3:05 PM REGISTERED DIETICIAN PREPARE PLATELET PHERESIS UNIT(S) Routine 11/14/2023 2:56 PM REGISTERED DIETICIAN URIC ACID BLOOD STAT 11/14/2023 1:14 PM REGISTERED DIETICIAN Acute myeloid leukemia in remission (HCC) TYPE + SCREEN PANEL STAT 11/14/2023 1 :14 PM REGISTERED DIETICIAN Acute myeloid leukemia in remission (HCC) DIFFERENTIAL MANUAL STAT 11/14/2023 1 :14 PM REGISTERED DIETICIAN Acute myeloid leukemia in remission (HCC) CBC W AUTO DIFFERENTIAL STAT 11/14/2023 1:14 PM REGISTERED DIETICIAN Acute myeloid leukemia in remission (HCC) COMPREHENSIVE METABOLIC PANEL STAT 11/14/2023 1:14 PM REGISTERED DIETICIAN Acute myeloid leukemia in remission (HCC) PHOSPHORUS BLOOD STAT 11/14/2023 1:14 PM REGISTERED DIETICIAN Acute myeloid leukemia in remission (HCC) MAGNESIUM BLOOD STAT 11/14/2023 1:14 PM REGISTERED DIETICIAN Acute myeloid leukemia in remission (HCC) LDH BLOOD STAT 11/14/2023 1:14 PM REGISTERED DIETICIAN Acute myeloid leukemia in remission (HCC) documented in this encounter Results * (ABNORMAL) CBC WITH DIFFERENTIAL (11/14/2023 3:48 PM REGISTERED DIETICIAN) WBC 0.3(LL) 4.0 - 10.7 x10E9/L 11/14/2023 5:30 PM [facility] Comment:No diff due to WBC < 0.5 RBC Count 2.47(L) 3.90 - 5.20 x10E12/L 11/14/2023 5:30 PM [facility] Hemoglobin 7.1(L) 11.9 - 15.8 g/dL 11/14/2023 5:30 PM [facility] Hematocrit 20.0(L) 34.8 - 46.1 % 11/14/2023 5:30 PM [facility] MCV 81.0 80.0 - 98.0 fL 11/14/2023 5:30 PM [facility] MCH 28.7 26.7 - 33.6 pg 11/14/2023 5:30 PM [facility] MCHC 35.5 31.7 - 36.3 g/dL 11/14/2023 5:30 PM [facility] RDW-CV 13.1 11.3 - 14.8 % 11/14/2023 5:30 PM [facility] Platelet Count 44(L) 150 - 420 x10E9/L 11/14/2023 5:30 PM [facility] MPV 10.6 7.8 - 11.4 fL 11/14/2023 5:30 PM REGISTERED DIETICIAN [facility] Blood BLOOD SPECIMEN / Unknown Venipuncture / Unknown 11/14/2023 3:48 PM REGISTERED DIETICIAN 11/14/2023 3:55 PM REGISTERED DIETICIAN Britni Winston PA-C LAB - HEMATOLOGY ORD ERABLES [facility] [address] [place] [address], [place] [phone] * TRANSFUSE PLATELET PHERESIS UNIT(S) (11/14/2023 3:44 PM REGISTERED DIETICIAN) Britni Winston PA-C NURSING - BLOOD PROD TRANSFUSION * TRANSFUSE PLATELET PHERESIS UNIT(S), 1 Units (11/14/2023 3:44 PM REGISTERED DIETICIAN) Britni Winston PA-C NURSING - BLOOD PROD TRANSFUSION * PREPARE PLATELET PHERESIS UNIT(S), 1 Units (11/14/2023 2:56 PM REGISTERED DIETICIAN) Unit Description LRPLTphere B7 IR [facility] BLOOD BANK LAB Unit ABO O [facility] BLOOD [facility]ANK LAB Unit Rh POS [facility] BLOOD BANK LAB Product Number P31 [facility] B LOOD BANK LAB Unit Donor # [id number] [facility] BLOOD BANK LAB Unit Status transfused [facility] BLO OD BANK LAB Product Code W7511L63 [facility] BLO OD BANK LAB Blood Type Barcode 5100 [facility] BLOOD BANK LAB Expiration Date [id number] S BLOOD BANK LAB Blood Bank BLOOD SPECIMEN / Unknown 11/14/2023 1:30 PM REGISTERED DIETICIAN Britni Winston PA-C LAB - BLOOD BANK ORD ERABLES [facility] BLOOD BANK LAB [address] [place] [address], [place] [phone] * (ABNORMAL) DIFFERENTIAL MANUAL (11/14/2023 1:14 PM REGISTERED DIETICIAN) Neutrophil % 8(L) 41 - 74 % 11/14/2023 2:14 PM REGISTERED DIETICIAN [facility] Lymphocyte % 92(H) 17 - 47 % 11/14/2023 2:14 PM [facility] Neutrophil Absolute 0.04(L) 1.60 - 7.50 x10E9/L 11/14/2023 2:14 PM [facility] Lymphocyte Absolute 0.46(L) 1.00 - 4.40 x10E9/L 11/14/2023 2:14 PM [facility] RBC Morphology REVIEWED 11/14/2023 2:14 PM [facility] Microcytosis MANY(A) (none) 11/14/2023 2:14 PM [facility] Schistocytes FEW(A) (none) 11/14/2023 2:14 PM [facility] Stomatocytes MODERATE(A) (none) 11/14/2023 2:14 PM [facility] Blood BLOOD SPECIMEN / Unknown Venipuncture / Unknown 11/14/2023 1:14 PM REGISTERED DIETICIAN 11/14/2023 1:28 PM REGISTERED DIETICIAN Britni Winston PA-C LAB - HEMATOLOGY ORD ERABLES [facility] [address] [place] [address], [place] [phone] * TYPE + SCREEN PANEL (11/14/2023 1:14 PM REGISTERED DIETICIAN) Antibody Screen NEG 2:21 PM REGISTERED DIETICIAN [facility] BLOOD BANK LAB ABO Rh O POS 11/14/2023 2:21 PM REGISTERED DIETICIAN [facility] BLOOD BANK LAB Blood Bank BLOOD SPECIMEN / Unknown Venipuncture / Unknown 11/14/2023 1:14 PM REGISTERED DIETICIAN 11/14/2023 1:30 PM REGISTERED DIETICIAN Britni Winston PA-C LAB - BLOOD BANK ORD ERABLES [facility] BLOOD BANK LAB [address] [place] [address], [place] [phone] * URIC ACID BLOOD (11/14/2023 1:14 PM REGISTERED DIETICIAN) Uric Acid 3.6 2.6 - 6.0 mg/dL 11/14/2023 1:53 PM [facility] Blood BLOOD SPECIMEN / Unknown Venipuncture / Unknown 11/14/2023 1:14 PM REGISTERED DIETICIAN 11/14/2023 1:28 PM REGISTERED DIETICIAN Britni Winston PA-C LAB - CHEMISTRY ORDAzul NAIDU Performing Organization Address City/[facility]/ZIP Co de Phone Number [address] [address], [facility] [phone] * LDH BLOOD (11/14/2023 1:14 PM REGISTERED DIETICIAN) [facility] LDH Total 210 125 - 243 Units/L 11/14/2023 1:53 PM [facility] Blood BLOOD SPECIMEN / Unknown Venipuncture / Unknown 11/14/2023 1:14 PM REGISTERED DIETICIAN 11/14/2023 1:28 PM REGISTERED DIETICIAN Britni Winston PA-C LAB - CHEMISTRY ORDAzul NAIDU Performing Organization Address [facility]/ZIP Co de Phone Number [address] [address], [facility] [phone] * (ABNORMAL) CBC WITH DIFFERENTIAL (11/14/2023 1:14 PM REGISTERED DIETICIAN) [facility] WBC 0.5(LL) 4.0 - 10.7 x10E9/L 11/14/2023 2:15 PM [facility] RBC Count 2.78(L) 3.90 - 5.20 x10E12/L 11/14/2023 2:15 PM [facility] Hemoglobin 8.0(L) 11.9 - 15.8 g/dL 11/14/2023 2:15 PM [facility] Hematocrit 22.6(L) 34.8 - 46.1 % 11/14/2023 2:15 PM [facility] MCV 81.3 80.0 - 98.0 fL 11/14/2023 2:15 PM [facility] MCH 28.8 26.7 - 33.6 pg 11/14/2023 2:15 PM [facility] MCHC 35.4 31.7 - 36.3 g/dL 11/14/2023 2:15 PM [facility] RDW-CV 13.0 11.3 - 14.8 % 11/14/2023 2:15 PM [facility] Platelet Count 12(LL) 150 - 420 x10E9/L 11/14/2023 2:15 PM [facility] MPV 10.1 7.8 - 11.4 fL 11/14/2023 2:15 PM [facility] Preliminary Absolute Neutrophil 0.02(L) 1.60 - 7.50 x10E9/L 11/14/2023 2:15 PM [facility] Comment:Preliminary ANC pend ing manual confirmation Blood BLOOD SPECIMEN / Unknown Venipuncture / Unknown 11/14/2023 1:14 PM REGISTERED DIETICIAN 11/14/2023 1:28 PM REGISTERED DIETICIAN Britni Winston PA-C LAB - HEMATOLOGY ORD ERABLES [address] [address], [place] [phone] * MAGNESIUM BLOOD (11/14/2023 1:14 PM REGISTERED DIETICIAN) Pathologist [facility] Magnesium 1.9 1.6 - 2.6 mg/dL 11/14/2023 1:53 PM [facility] Blood BLOOD SPECIMEN / Unknown Venipuncture / Unknown 11/14/2023 1:14 PM REGISTERED DIETICIAN 11/14/2023 1:28 PM REGISTERED DIETICIAN Britni Winston PA-C LAB - CHEMISTRY ORDE RABLES [address] [address], [place] [phone] * (ABNORMAL) COMPREHENSIVE METABOLIC PANEL (11/14/2023 1:14 PM REGISTERED DIETICIAN) BUN 12 7 - 26 mg/dL 11/14/2023 1:53 PM [facility] Creatinine 0.66 0.56 - 0.96 mg/dL 11/14/2023 1:53 PM [facility] Sodium 140 136 - 145 mmol/L 11/14/2023 1:53 PM [facility] Potassium 3.7 3.5 - 4.5 mmol/L 11/14/2023 1:53 PM [facility] Chloride 109(H) 98 - 107 mmol/L 11/14/2023 1:53 PM [facility] CO2 21(L) 22 - 29 mmol/L 11/14/2023 1:53 PM [facility] Glucose 151(H) 70 - 115 mg/dL 11/14/2023 1:53 PM [facility] Calcium 9.1 8.4 - 10.2 mg/dL 11/14/2023 1:53 PM [facility] Protein Total 6.9 6.0 - 8.3 g/dL 11/14/2023 1:53 PM [facility] Albumin 3.4 3.4 - 5.0 g/dL 11/14/2023 1:53 PM [facility] Bilirubin Total 0.5 0.2 - 1.2 mg/dL 11/14/2023 1:53 PM [facility] Alkaline Phosphatase 82 40 - 150 U/L 11/14/2023 1:53 PM [facility] ALT 32 5 - 55 U/L 11/14/2023 1:53 PM [facility] AST 16 5 - 34 U/L 11/14/2023 1:53 PM [facility] Anion Gap 10 6 - 16 11/14/2023 1:53 PM [facility] BUN/Creatinine Ratio 18 7 - 23 11/14/2023 1:53 PM [facility] Osmolality Calculated 293 275 - 295 mOsm/kg 11/14/2023 1:53 PM [facility] Albumin/Globulin Ratio 1.0(L) 1.1 - 2.3 11/14/2023 1:53 PM [facility] eGFR by CKD-EPI >90 >=90 mL/min/1.7 3 m2 11/14/2023 1:53 PM [facility] Blood BLOOD SPECIMEN / Unknown Venipuncture / Unknown 11/14/2023 1:14 PM REGISTERED DIETICIAN 11/14/2023 1:28 PM REGISTERED DIETICIAN Britni Winston PA-C LAB - CHEMISTRY JON NAIDU Performing Organization Address City/[facility]/ZIP Co de Phone Number [address] [address], [place] [phone] * (ABNORMAL) PHOSPHORUS BLOOD (11/14/2023 1:14 PM REGISTERED DIETICIAN) Phosphorus 2.8(L) 2.9 - 5.1 mg/dL 11/14/2023 1:53 PM REGISTERED DIETICIAN [facility] Blood BLOOD SPECIMEN / Unknown Venipuncture / Unknown 11/14/2023 1:14 PM REGISTERED DIETICIAN 11/14/2023 1:28 PM REGISTERED DIETICIAN Britni Winston PA-C LAB - CHEMISTRY JON NAIDU Performing Organization Address [facility] Co de Phone Number [address] [address], [place] [phone] documented in this encounter Visit Diagnoses Diagnosis 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 documented in this encounter Administered Medications Inactive Administered Medications - up to 3 most recent administrations Medication Order MAR Action Action Date Dose Rate Site sodium - potassium phosphates (K Phos Neutral) tablet 2 tablet 2 tablet, Oral, ONCE, 1 dose, On Fri11/14/23 at 1500, Contains Phos 8 mmol, K+ 1.1 mEq, Na 13 mEq per tablet $ Given 11/14/2023 2:50 PM REGISTERED DIETICIAN 2 tablets documented in this encounter Care Teams Director Dietetics Department Relationship Specialty Start Date End Date Nilam Mayers MD [address] [place] [phone] PCP - General Family Medicine 09/04/23 04/18/24 documented as of this encounter
--- OUTSIDE RECORDS SUMMARY | 2024-08-31 21:29 | XMS_ITS | Encounter Summary ---
Author Organization [facility] Address [address] [place] [address] [place] [address] Care Team Providers Care Boiler Control Room Operator Name Role Phone Nilam Mayers MD Primary Care Provider +1- [phone] Encounter Details Date Type Department Care Team (Latest Contact Info) Description 11/17/2023 Travel Social History Tobacco Use Types Packs/Day [...] and heating? Not very hard 11/03/2023 [facility] of Occupat ional Health - Occupational Stress [...] slept in a fpc (including now)? No 11/03/2023 Sex and Gender [...] st Contact Info) Description 10/27/2024 10:30 AM RIVET TOSSER Appointment [facility] [address] [place] [address] Hussain Carias MD [address] [place] [phone] Britni Winston, PABaronC [address] [place] [address] 11/17/2024 9:00 AM RIVET TOSSER Office Visit [facility] - Ophthalmology [address] [place] [phone] Song Hobson MD [address] [place] [address] [place] [address] documented as of this encounter Visit Diagnoses Not on filedocumented in this encounter Care Teams Boiler Control Room Operator Relationship Specialty Start Date End Date Nilam Mayers MD [address] [place] [phone] PCP - General Family Medicine 09/04/23 04/18/24 documented as of this encounter
--- OUTSIDE RECORDS SUMMARY | 2024-08-31 21:29 | XMS_ITS | Encounter Summary ---
Author Organization [facility] Address [address] [place], [place] [address] [address] Care Team Providers Care Escalator Constructor Name Role Phone Nilam Mayers MD Primary Care Provider [phone]- [phone] Encounter Details Date Type Department Care Team (Latest Contact Info) Description 11/24/2023 9:44 AM CDT - 11/24/2023 12:59 PM T Hospital Encounter [facility] [address] [place] [address] Hussain Carias MD [address] [place] [address] Esperanza Pemberton, DIRECTOR MICROBIOLOGY-PROCESS TRAINER [address] [place] [address] Discharge Disposition: Home or Self [...] care, and heating? Not very hard 11/03/2023 [facility] of Occupat ional Health - Occupational Stress [...] slept in a custodial (including now)? No 11/03/2023 Sex and Gender Information Value Date Recorded Sex Assigned at Not on file Gender Identity Female 02/13/2024 1:12 PM CDT Sexual Orientation Not on file documented as of this encounter Last Filed Vital Signs Vital Sign Reading Time Taken Comments Blood Pressure 125/74 11/24/2023 12:27 PM CDT Pulse 96 11/24/2023 12:27 PM CDT Temperature 37 ??C (98.6 ??F) 11/24/2023 12:27 PM CDT Respiratory Rate 20 11/24/2023 12:27 PM CDT Oxygen Saturation 100% 11/24/2023 12:27 PM CDT Inhaled Oxygen Concentration - - Weight 109 kg (240 lb 4.8 oz) 11/24/2023 9:50 AM CDT Height - - Body Mass Index 43.95 11/19/2023 9:31 AM JEWEL WAXER documented in this encounter Functional Status Functional [...] st Contact Info) Description 10/27/2024 10:30 AM JEWEL WAXER Appointment [facility] [address] [place], [place] [id number] Hussain Carias MD [address] [place] [phone] Britni Winston PA-C [address] [place], [place] [phone] 11/17/2024 9:00 AM JEWEL WAXER Office Visit [facility] - Ophthalmology [address] [place] [phone] Song Hobson MD [address] [place] [address] [place] [phone] documented as of this encounter Procedures Procedure Name Priority Date/Time Associated Diagnosis Comments TYPE + SCREEN PANEL STAT 11/24/2023 1 2:28 PM CDT Acute myeloid leukemia in remission (HCC) TRANSFUSE RED BLOOD CELL LEUKOREDUCED UNIT(S) Routine 11/24/2023 12:08 PM CDT PLATELET COUNT AUTO Routine 11/24/2023 1 2:06 PM CDT Acute myeloid leukemia in remission (HCC) PREPARE RBC LEUKOREDUCED UNIT Routine 11/24/2023 11:56 AM CDT TRANSFUSE PLATELET PHERESIS UNIT(S) Routine 11/24/2023 11:19 AM CDT PREPARE PLATELET PHERESIS UNIT(S) Routine 11/24/2023 11:10 AM CDT URIC ACID BLOOD STAT 11/24/2023 10:03 AM CDT Acute myeloid leukemia in remission (HCC) DIFFERENTIAL MANUAL STAT 11/24/2023 1 0:03 AM CDT Acute myeloid leukemia in remission (HCC) CBC W AUTO DIFFERENTIAL STAT 11/24/2023 10:03 AM CDT Acute myeloid leukemia in remission (HCC) COMPREHENSIVE METABOLIC PANEL STAT 11/24/2023 10:03 AM CDT Acute myeloid leukemia in remission (HCC) PHOSPHORUS BLOOD STAT 11/24/2023 10:0 3 AM CDT Acute myeloid leukemia in remission (HCC) MAGNESIUM BLOOD STAT 11/24/2023 10:03 AM CDT Acute myeloid leukemia in remission (HCC) LDH BLOOD STAT 11/24/2023 10:03 AM CDT Acute myeloid leukemia in remission (HCC) documented in this encounter Results * TRANSFUSE RED BLOOD CELL LEUKOREDUCED UNIT(S) (11/24/2023 12:28 PM CDT) Esperanza Pemberton APRN-PROCESS TRAINER NURSING - BLOOD PROD TRANSFUSION * TRANSFUSE RED BLOOD CELL LEUKOREDUCED UNIT(S), 1 Units (11/24/2023 12:28 PM CDT) Esperanza Pemberton APRN-PROCESS TRAINER NURSING - BLOOD PROD TRANSFUSION * TYPE + SCREEN PANEL (11/24/2023 12:28 PM CDT) Antibody Screen NEG 1:40 PM CDT [facility] ABO Rh O POS 11/24/2023 1:40 PM CDT [facility] Blood Bank BLOOD SPECIMEN / Unknown Venipuncture / Unknown 11/24/2023 12:28 PM CDT 11/24/2023 12:40 PM CDT Britni Winston PA-C LAB - BLOOD BANK ORD ERABLES [facility] [address] [place] [address], [facility] [phone] * TRANSFUSE PLATELET PHERESIS UNIT(S) (11/24/2023 12:07 PM CDT) Esperanza Pemberton [facility] NURSING - BLOOD PROD TRANSFUSION * TRANSFUSE PLATELET PHERESIS UNIT(S), 1 Units (11/24/2023 12:07 PM CDT) Esperanza Pemberton [facility] NURSING - BLOOD PROD TRANSFUSION * (ABNORMAL) PLATELET COUNT AUTO (11/24/2023 12:06 PM CDT) Platelet Count 59(L) 150 - 420 x10E9/L 11/24/2023 12:32 PM CDT [facility] Blood BLOOD SPECIMEN / Unknown Venipuncture / Unknown 11/24/2023 12:06 PM CDT 11/24/2023 12:13 PM CDT [facility] Y ORDERABLES [facility] [address] [place] [address], [facility] [phone] * PREPARE (CROSSMATCH) RBC UNIT(S), 1 Units (11/24/2023 11:56 AM CDT) Pathologist [facility] Unit Description AS1 LR PRBC IRR [facility] Unit ABO O [facility] Unit Rh POS [facility] Product Number R04 [facility] Unit Donor # [id number] [facility] Unit Status transfused [facility] Product Code [id number] [facility] Blood Type Barcode 5100 [facility] Expiration Date [id number] S BLOOD BANK LAB Blood Bank BLOOD SPECIMEN / Unknown 11/24/2023 12:40 PM CDT Georgette Buss [facility] LAB - BLOOD BAN K ORDERABLES [facility] [address] [place] [address], [facility] [phone] * PREPARE PLATELET PHERESIS UNIT(S), 1 Units (11/24/2023 11:10 AM CDT) [facility] Unit Description LRPLTphere B7 IR [facility] Unit ABO O [facility] Unit Rh POS [facility] Product Number P32 [facility] LO[facility] Unit Donor # [id number] [facility] Unit Status transfused [facility] Product Code [id number] [facility] OD [facility] LAB Blood Type Barcode 5100 [facility] Expiration Date [id number] S BLOOD BANK LAB Blood Bank BLOOD SPECIMEN / Unknown 11/24/2023 12:40 PM CDT Esperanza Pemberton DIRECTOR MICROBIOLOGY-PROCESS TRAINER LAB - BLOOD BAN K ORDERABLES Performing Organization Address [facility]/ZIP Co de Phone Number [facility] [address] [place] [address], [facility] [phone] * (ABNORMAL) DIFFERENTIAL MANUAL (11/24/2023 10:03 AM CDT) [facility] Neutrophil % 29(L) 41 - 74 % 11/24/2023 11:12 AM CDT [facility] Lymphocyte % 33 17 - 47 % 11/24/2023 11:12 AM CDT [facility] Monocyte % 37(H) 3 - 11 % 11/24/2023 11:12 AM T [facility] Metamyelocyte % 1(H) 0% % 11:12 AM CDT [facility] Neutrophil Absolute 0.58(L) 1.60 - 7.50 x10E9/L 11/24/2023 11:12 AM T [facility] Lymphocyte Absolute 0.66(L) 1.00 - 4.40 x10E9/L 11/24/2023 11:12 AM T [facility] Monocyte Absolute 0.74 0.15 - 1.00 x10E9/L 11/24/2023 11:12 AM CDT [facility] RBC Morphology REVIEWED 11/24/2023 11:12 AM CDT [facility] Microcytosis MODERATE(A) (none) 11/24/2023 11:12 AM CDT [facility] Blood BLOOD SPECIMEN / Unknown Venipuncture / Unknown 11/24/2023 10:03 AM CDT 11/24/2023 10:11 AM CDT Britni Winston PA-C LAB - HEMATOLOGY ORD ERABLES [address] [address], [place] [phone] * URIC ACID BLOOD (11/24/2023 10:03 AM CDT) Uric Acid 3.5 2.6 - 6.0 mg/dL 11/24/2023 10:40 AM CDT [facility] Blood BLOOD SPECIMEN / Unknown Venipuncture / Unknown 11/24/2023 10:03 AM CDT 11/24/2023 10:11 AM CDT Britni Winston PA-C LAB - CHEMISTRY JON NAIDU Performing Organization Address [facility]/ZIP Co de Phone Number [address] [address], [place] [phone] * LDH BLOOD (11/24/2023 10:03 AM CDT) [facility]DH Total 215 125 - 243 Units/L 11/24/2023 10:40 AM CDT [facility] Blood BLOOD SPECIMEN / Unknown Venipuncture / Unknown 11/24/2023 10:03 AM CDT 11/24/2023 10:11 AM CDT Britni Winston PA-C LAB - CHEMISTRY ORDE RABQI Performing Organization Address City/[facility]/ZIP Co de Phone Number [address] [address], [place] [phone] * (ABNORMAL) CBC WITH DIFFERENTIAL (11/24/2023 10:03 AM CDT) WBC 2.0(L) 4.0 - 10.7 x10E9/L 11/24/2023 11:12 AM [facility] RBC Count 2.33(L) 3.90 - 5.20 x10E12/L 11/24/2023 11:12 AM [facility] Hemoglobin 6.6(L) 11.9 - 15.8 g/dL 11/24/2023 11:12 AM [facility] Hematocrit 18.2(L) 34.8 - 46.1 % 11/24/2023 11:12 AM [facility] MCV 78.1(L) 80.0 - 98.0 fL 11/24/2023 11:12 AM [facility] MCH 28.3 26.7 - 33.6 pg 11/24/2023 11:12 AM [facility] MCHC 36.3 31.7 - 36.3 g/dL 11/24/2023 11:12 AM [facility] RDW-CV 13.1 11.3 - 14.8 % 11/24/2023 11:12 AM [facility] Platelet Count 24(L) 150 - 420 x10E9/L 11/24/2023 11:12 AM [facility] MPV 10.9 7.8 - 11.4 fL 11/24/2023 11:12 AM [facility] Preliminary Absolute Neutrophil 0.37(L) 1.60 - 7.50 x10E9/L 11/24/2023 11:12 AM [facility] Comment:Preliminary ANC pend ing manual confirmation Blood BLOOD SPECIMEN / Unknown Venipuncture / Unknown 11/24/2023 10:03 AM CDT 11/24/2023 10:11 AM T Britni Winston PA-C LAB - HEMATOLOGY ORD ERABLES [facility] [address] [place] [address], [facility] [phone] * MAGNESIUM BLOOD (11/24/2023 10:03 AM CDT) Pathologist [facility] Magnesium 1.7 1.6 - 2.6 mg/dL 11/24/2023 10:40 AM [facility] Blood BLOOD SPECIMEN / Unknown Venipuncture / Unknown 11/24/2023 10:03 AM CDT 11/24/2023 10:11 AM CDT Britni Winston PA-C LAB - CHEMISTRY JON NAIDU [facility] [address] [place] [address], [facility] [phone] * (ABNORMAL) COMPREHENSIVE METABOLIC PANEL (11/24/2023 10:03 AM CDT) Pathologist [facility] BUN 6(L) 7 - 26 mg/dL 11/24/2023 10:40 AM [facility] Creatinine 0.65 0.56 - 0.96 mg/dL 11/24/2023 10:40 AM [facility] Sodium 140 136 - 145 mmol/L 11/24/2023 10:40 AM [facility] Potassium 3.2(L) 3.5 - 4.5 mmol/L 11/24/2023 10:40 AM [facility] Chloride 109(H) 98 - 107 mmol/L 11/24/2023 10:40 AM [facility] CO2 22 22 - 29 mmol/L 11/24/2023 10:40 AM [facility] Glucose 125(H) 70 - 115 mg/dL 11/24/2023 10:40 AM [facility] Calcium 9.4 8.4 - 10.2 mg/dL 11/24/2023 10:40 AM [facility] Protein Total 6.3 6.0 - 8.3 g/dL 11/24/2023 10:40 AM [facility] Albumin 3.0(L) 3.4 - 5.0 g/dL 11/24/2023 10:40 AM [facility] Bilirubin Total 0.4 0.2 - 1.2 mg/dL 11/24/2023 10:40 AM [facility] Alkaline Phosphatase 75 40 - 150 U/L 11/24/2023 10:40 AM [facility] ALT 76(H) 5 - 55 U/L 11/24/2023 10:40 AM [facility] AST 40(H) 5 - 34 U/L 11/24/2023 10:40 AM [facility] Anion Gap 9 6 - 16 11/24/2023 10:40 AM [facility] BUN/Creatinine Ratio 9 7 - 23 11/24/2023 10:40 AM [facility] Osmolality Calculated 289 275 - 295 mOsm/kg 11/24/2023 10:40 AM [facility] Albumin/Globulin Ratio 0.9(L) 1.1 - 2.3 11/24/2023 10:40 AM [facility] eGFR by CKD-EPI >90 >=90 mL/min/1.7 3 m2 11/24/2023 10:40 AM [facility] Blood BLOOD SPECIMEN / Unknown Venipuncture / Unknown 11/24/2023 10:03 AM CDT 11/24/2023 10:11 AM CDT Britni Winston PA-C LAB - CHEMISTRY JON NAIDU [address] [address], [place] [phone] * (ABNORMAL) PHOSPHORUS BLOOD (11/24/2023 10:03 AM CDT) Phosphorus 2.8(L) 2.9 - 5.1 mg/dL 11/24/2023 10:40 AM T [facility] Blood BLOOD SPECIMEN / Unknown Venipuncture / Unknown 11/24/2023 10:03 AM CDT 11/24/2023 10:11 AM CDT Birtni Winston PA-C LAB - CHEMISTRY JON NAIDU [address] [address], [place] [phone] documented in this encounter Visit Diagnoses Diagnosis 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 documented in this encounter Care Teams Escalator Constructor Relationship Specialty Start Date End Date Nilam Mayers MD [address] [place] [phone] PCP - General Family Medicine 09/04/23 04/18/24 documented as of this encounter
--- OUTSIDE RECORDS SUMMARY | 2024-08-31 21:29 | XMS_ITS | Encounter Summary ---
Author Organization [facility] Address [address] [place] [address] [place] [address] Care Team Providers Care Last Remodeler Repairer Name Role Phone Nilam Mayers MD Primary Care Provider [phone]- [phone] Encounter Details Date Type Department Care Team (Latest Contact Info) Description 11/21/2023 Travel Social History Tobacco Use Types Packs/Day [...] care, and heating? Not very hard 11/03/2023 [facility] [place] of Occupat ional Health - Occupational Stress [...] slept in a penitentiary (including now)? No 11/03/2023 Sex and Gender [...] st Contact Info) Description 10/27/2024 10:30 AM BOAT MECHANIC Appointment [facility] [address] [place] [address] Hussain Carias MD [address] [place] [phone] Britni Winston, PABaronC [address] [place] [address] 11/17/2024 9:00 AM BOAT MECHANIC Office Visit [facility] - Ophthalmology [address] [place] [phone] Song Hobson MD [address] [place] [address] [place] [address] documented as of this encounter Visit Diagnoses Not on filedocumented in this encounter Care Teams Last Remodeler Repairer Relationship Specialty Start Date End Date Nilam Mayers MD [address] [place] [phone] PCP - General Family Medicine 09/04/23 04/18/24 documented as of this encounter
--- OUTSIDE RECORDS SUMMARY | 2024-08-31 21:29 | XMS_ITS | Encounter Summary ---
Author Organization [facility] Address [address] [place], [place] [address] [address] Care Team Providers Care Airplane Patrol Pilot Name Role Phone Nilam Mayers MD Primary Care Provider [phone] Reason for Referral * Radiology Services (Emergency) - Closed Specialty Diagnoses / Procedures Referred By Contac t Referred To Contact Hematology-Oncology Diagnoses Acute myeloid leukemia in remission (HCC) Procedures CT FACIAL BONES WO CONTRAST Britni Winston PA-C [address] [place] [address] Referral ID Status Reason Start Date Expiration Date Visits Re quested Visits Authorized [id number] Closed 11/21/2023 11/20/2024 1 1 SPINNER Encounter Details Date Type Department Care Team (Latest Contact Info) Description 11/21/2023 8:31 AM YARN SPINNER - 11/21/2023 11:59 PM YARN SPINNER Hospital Encounter [facility] [address] [place] [address] Hussain Carias MD [address] [place] [phone] Britni Winston PA-C [address] [place] [address] Discharge Disposition: [...] care, and heating? Not very hard 11/03/2023 [facility] [place] of Occupat ional Health - Occupational Stress [...] or slept in a usp (including now)? No 11/03/2023 Sex and Gender Information Value Date Recorded Sex Assigned at Not on file Gender Identity Female 02/13/2024 1:12 PM CDT Sexual Orientation Not on file documented as of this encounter Last Filed Vital Signs Vital Sign Reading Time Taken Comments Blood Pressure 129/90 11/21/2023 12:54 PM YARN SPINNER Pulse 111 11/21/2023 12:54 PM YARN SPINNER Temperature 37.4 ??C (99.3 ??F) 11/21/2023 1 2:54 PM YARN SPINNER Respiratory Rate 18 11/21/2023 12:5 4 PM YARN SPINNER Oxygen Saturation 100% 11/21/2023 12: 54 PM YARN SPINNER Inhaled Oxygen Concentration - - Weight 112.1 kg (247 lb 1.6 oz) 024 10:30 AM YARN SPINNER Height - - Body Mass Index 45.2 11/19/2023 9:31 AM YARN SPINNER documented in this encounter Functional Status Functional [...] No 11/03/2023 documented as of this encounter Discharge Instructions * Patient Instructions* Britni Winston PA-C - 11/21/2023 3:09 PM YARN SPINNER Thank you for entrusting your healthcare to the physicians and other specialists at the [facility]. [facility] Hematology/Oncology Clinic: [phone] RN: Alyson Butcher or Beronica Lilly For symptom management or prescription questions during business hours (Mon-Fri 8AM-4:30PM), pleasecall the clinic front maker ([phone]) and your message will be routed to your RN. Outside of business hours, please call the hematology/oncology doctor on-call. If you have an urgent need during business hours please make sure to speak with a front maker so your message is routed urgently to a nurse. Hem/Onc Doctor On-Call (After hours, weekends, holidays): [phone], Dial [phone] (Slat Basket Maker) and askfor the hematology/oncology fellow on-call and they will contact you within 30 minutes. If you are having a medical emergency, please call 911 or go to the nearest Emergency Room. Please call for directions for any of these symptoms: Fever higher than 100.4??F (taken by mouth) if you are on active treatment please take your temperature with a digital thermometer twice daily and before taking Tylenol Intense chills or shakes Uncontrolled nausea/vomiting or diarrhea Abnormal bleeding or unexplained bruising New rash or allergic reaction, such as swelling of the mouth or throat, severe itching, trouble swallowing, difficulty breathing Pain or soreness at the chemo injection site or catheter site New or unusual pain, including severe headaches Please dial 911 or report to the nearest emergency room: New chest pain or difficulty breathing SPINNER documented in this encounter Medications at Time [...] 11/04/2023 12/06/2023 posaconazole (Noxafil) 100 MG tabletIndications:Ac [place] myeloid leukemia in remission (HCC) Take 3 (three) tablets by mouth daily with dinner 90 tablet 5 11/03/2023 12/15/2023 potassium chloride ER 10 MEQ tablet Take 2 (two) tablets by mouth once daily 30 tablet 3 11/10/2023 12/15/2023 prochlorperazine (Compazine) 10 MG tabletIndications:Ac [place] myeloid leukemia in remission (HCC) Take 1 (one) tablet by mouth every 6 hours as needed for Nausea/Vomiting 30 tablet 11 11/04/2023 12/06/2023 valACYclovir (Valtrex) 500 MG tabletIndications:Ac [place] myeloid leukemia in remission (HCC) Take 1 (one) tablet by mouth 2 times daily 60 tablet 11 11/03/2023 08/23/2024 documented as of this encounter Progress Notes * Britni Winston PA-C - 11/21/2023 11:09 AM CST [facility] Hematology/Oncology Clinic Visit Note Date of visit: 11/21/2023 Patient: Sarah Mckeon Oncologist: Dr. 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 Was treated with vanc cefepime and then CTX, but had persistent pancytopenia. Bone marrow biopsy was done which showed 78% blast on the bone marrow flow cytometry and confirmed NPM1 mutation. Pt was transferred to [facility] for concern for AML. Count recovery BMBx performed at [facility] on 10/01/23 confirmed no blasts, MRD pending as of 10/13/23. SH - Lives alone with daughter (11 y old); her daughter is currently staying with her dad. No PMHx of cancers; she is adopted so FH is limited. No drugs or smoking or alcohol use. C1 7+3 Induction, 09/06/23 C1 HiDAC, 10/04/23 C2 HiDAC, 11/03/23 INTERIM HISTORY Mora presents to clinic for cycle 2 day 19 HiDAC. 11/18 evening, pt began to note a couple of mouth sores to her mouth, one popping on 11/19. On 11/19, pt developed mild pain (worsens to the touch) to her right lower jaw. Eating/chewing without difficulty. Pt reports she has been using saltwater rinses. Reports continued vaginal bleeding (1 pad per day). She notes it comes and goes in amount but neverexceeds 1 pad per day. Denies F/N/V/D/C. Has been taking her temperature, but it has not exceeded 99.2F. Pt also notes oneepisode where she felt chills, but she also was not fevering at that time. VSS. PERFORMANCE STATUS: KPS 90 / ECOG 1 ONCOLOGY HISTORY: Cancer Staging No matching staging information was found for the patient. Oncology History Acute myeloid leukemia in remission ([facility]) 09/03/2023 Initial Diagnosis 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 ([facility]) 09/06/2023 - Chemotherapy cytarabine (Cytosar) 460 mg [...] date: 2004 Quit date: 2011 Years since quittin.1 ??? Smokeless tobacco: Never Vaping Use ??? [...] (Non-Medical): No Stress: Stress Concern Present (11/03/2023) [facility] [place] of Occupational Health - Occupational Stress Questionnaire [...] Negative for congestion, nosebleeds and sore throat. Mouth sores Jaw pain Eyes: Negative for blurred vision, double vision, pain and redness. Respiratory: Negative for cough, hemoptysis and shortness of breath. Cardiovascular: Negative for chest pain and leg swelling. Gastrointestinal: Negative for abdominal pain, blood in stool, constipation, diarrhea, melena, nausea and vomiting. Genitourinary: Negative for dysuria. Skin: Negative for rash. Neurological: Negative for dizziness and headaches. PHYSICAL EXAM: Wt Readings from Last 3 Encounters: 11/21/23 112.1 kg (247 lb 1.6 oz) 11/19/23 110.7 kg (244 lb) 11/19/23 110.5 kg (243 lb 8 oz) Temp Readings from Last 3 Encounters: 11/21/23 98.4 ??F (Oral) 11/19/23 98.6 ??F 11/19/23 97.9 ??F BP Readings from Last 3 Encounters: 11/21/23 149/94 11/19/23 129/93 11/19/23 119/86 Pulse Readings from Last 3 Encounters: 11/21/23 107 11/19/23 (!) 120 11/19/23 104 Physical Exam Vitals reviewed. Constitutional: General: She is not in acute distress. Appearance: She is not ill-appearing. HENT: Head: Normocephalic and atraumatic. Nose: No rhinorrhea. Mouth/Throat: Mouth: Oral lesions present. Comments: Two oral lesion to her mouth Pain to palpation over right mandible Eyes: General: Lids are normal. Extraocular Movements: [...] Behavior normal. LABS: Recent Labs Component Name 11/19/23 1139 11/19/23 0840 WBC - 0.4* HGB - 8.4* HCT - 22.9* PLTCOUNT 40* 10* Recent Labs Component Name 11/19/23 0840 11/17/23 0946 11/14/23 1548 11/12/23 1136 11/10/23 1312 11/07/23 2103 11/06/23 2008 11/05/23 2257 11/03/23 0956 10/29/23 1048 10/27/23 1409 10/24/23 1212 10/13/23 2140 10/13/23 1354 10/02/23 2132 01/211809/30/23200809/07/23200709/06/23 2143 09/05/23 0909 09/04/23 0525 WBC 0.4* 0.4* 0.3* - 1.1* 2.2* 3.5* 4.2 - 3.2* 2.8* 1.3* - 0.5* - 4.1 4.1 - 0.6* - 1.9* RBC 2.95* 2.43* 2.47* - 2.80* 2.82* 2.79* 2.38* - 2.51* 2.48* 2.69* - 2.54* - 2.36* 2.32* - 2.45* -2.51* HGB 8.4* 7.0* 7.1* - 8.3* 8.2* 8.1* 7.0* - 7.4* 7.3* 7.8* - 7.5* - 7.3* 7.1* - 7.9* - 8.1* HCT 22.9* 19.7* 20.0* - 23.0* 23.4* 23.7* 20.3* - 20.2* 19.7* 21.1* - 20.2* - 21.5* 20.4* - 22.0* -22.6* MCV 77.6* 81.1 81.0 - 82.1 83.0 84.9 85.3 - 80.5 79.4* 78.4* - 79.5* - 91.1 87.9 - 89.8 - 90.0 MCH 28.5 28.8 28.7 - 29.6 29.1 29.0 29.4 - 29.5 29.4 29.0 - 29.5 - 30.9 30.6 - 32.2 - 32.3 MCHC 36.7* 35.5 35.5 - 36.1 35.0 34.2 34.5 - 36.6* 37.1* 37.0* - 37.1* - 34.0 34.8 - 35.9 - 35.8 MPV 9.5 10.1 10.6 - 12.6* 10.9 11.2 11.5* - 11.1 11.8* 10.8 - - - 11.4 11.0 - 11.8* - - NEUTPCT - - - - - 92.8* 87.6* 86.8* - - - - - - - - - - - - - MONOPCT - - - - - 0.9* 4.3 6.0 - - - - - - - - - - - - - EOSPCT - - - - - 0.0 0.0 0.0 - - - - - - - - - - - - - BASOPCT - - - - - 0.0 0.0 0.0 - - - - - - - - - - - - - MONO - - - - - - - - - 1.09* 1.15* 0.49 - - - 0.78 1.07* - 0.02* [...] interval not displayed. Recent Labs Component Name 11/19/23 0840 11/17/23 0946 11/14/23 1314 BUN 12 11 12 CREATININE 0.65 0.69 0.66 NA 141 142 140 POTASSIUM 3.8 3.7 3.7 CL 111* 113* 109* CALCIUM 9.2 9.2 9.1 PROT 6.8 6.6 6.9 ALB 3.4 3.4 3.4 TBILI 0.7 0.5 0.5 ALKPHOS 81 75 82 ALT 26 29 32 AST 13 16 16 ANIONGAP 10 10 10 BCR 18 16 18 OSMOLALITY 295 298* 293 EGFR >90 >90 >90 Pathology Results RESULT Normal FISH Result: inv(3) or t(3;3) RPN1::MECOM Fusion: not detected Deletion 5q: not detected Monosomy 7: not detected Deletion 7q: not detected t(8;21) RUNX1::ULEN1G7 Fusion: not detected 11p15 (NUP98) Rearrangement: not detected 11q23 (KMT2A) Rearrangement: not detected inv(16) or t(16;16) CBFB::MYH11 Fusion: not detected INTERPRETATION There was no evidence of RPN1::MECOM fusion due to 3q21/3q26.2 inversion or translocation, deletion 5q31, monosomy 7, deletion 7q31, RUNX1::ELJM1F7 fusion due to translocation (8;21)(q21.3;q22), 11p15 (NUP98) [...] represent benign/regenerative myeloblasts. Electronically signed Radiology Results FL LUMBAR PUNCT FOR CHEMO INJ Result Date: 10/01/2023 1. Successful lumbar puncture under fluoroscopic guidance at level L4-5. 2. Successful injection ofintrathecal chemotherapeutic agent. Report dictated by Sivakumar Garrido DO (Physician Asst). Attending Physician: Dr. Augustine [facility] Dental Office Receptionist: Dr. Sivakumar Garrido DO (Physician Asst). The procedure was performed by the: The executive assistant to president, and the attending radiologist was present for [...] 38 year old female who transferred to [facility] on 09/03/2023 for suspected AML. Patient started 7 + 3 (cytarabine and idarubicin) on 09/06/2023. Now receiving HiDAC consolidation due to concern for [employer] involvement. 1. AML, NPM-1 mut, fav risk in CR and molecular remission after 7+3 -Pancytopenia, neutropenia -Transferred from [facility] after a [...] - F/u with Dr. Hobson 6. Mouth lesions, Acute jaw pain - Continue saltwater rinses - Call parameters over the weekend discussed with patient, including worsening sx or any fever. - CT facial bones ordered. There were no more outpatient slots on 11/20, so pt was scheduled for t 1PM. PLAN: - Labs reviewed, plts 23 per prelim count. - 1 unit plt given for plt 23 - CT facial bones to be completed 11/23. - Call parameters, in light of new jaw pain, discussed with pt. - Plt threshold >30K at this time d/t active vaginal bleeding; will keep at >20 when vaginal bleeding slows. - Continue OI ppx with Valtrex, Levaquin, and posaconazole. - Transfusion parameters: (leukoreduced and irradiated blood products) pRBC to keep Hgb >7 if hemodynamically stable and no bleeding. PLT transfusion to keep PLT >30K at this time due to vaginal bleeding. F/u: f/u on 11/25/23 and 11/28/23 for labs only, and on 11/25 for labs and ABEL visit Britni Winston PA-C Blood & Marrow Transplant [facility] SPINNER Associated attestation - Hussain Carias MD - 11/22/2023 11:05 AM YARN SPINNER I independently interviewed and examined Sarah Mckeon with the BMT advanced practice provider. I reviewed my findings and assessment with the advanced practice provider and the patient. I reviewed the note. Please see note for full detail. I agree with the findings and plan of care as documented by the advanced practice provider. Favorable risk AML in CR VSS Recent Labs Component Name 11/21/23 1300 11/21/23 1045 WBC - 0.4* HGB - 7.4* HCT - 19.9* PLTCOUNT 41* 23* C2D19 of HiDAC Mouth sores likely secondary to chemo. Oral hygiene, saline mouth wash and supportive management. C/o Jaw pain, new, concern for dental infection/abscess. On exam no TMJ tenderness and no sinus tenderness. Will check CT maxillofacial bone. Vaginal bleeding s/p depo shot Hussain Carias MD, MS dental hygiene professorassociate professor of violin Division of Hematology, Oncology, BMT & Cellular therapies [facility] documented in this encounter Plan of Treatment Upcoming Encounters Date Type Department Care Team (Late st Contact Info) Description 10/27/2024 10:30 AM YARN SPINNER Appointment [facility] [address] [place] [address] Hussain Carias MD [address] [place] [address] Britni Winston PA-C [address] [place] [address] 11/17/2024 9:00 AM YARN SPINNER Office Visit [facility] - Ophthalmology [address] [facility], [place] [phone] Song Hobson MD [address] [facility] DE[place] [address] documented as of this encounter Procedures Procedure Name Priority Date/Time Associated Diagnosis Comments PLATELET COUNT AUTO Routine 11/21/2023 1 :00 PM YARN SPINNER Acute myeloid leukemia in remission (HCC) TRANSFUSE PLATELET PHERESIS UNIT(S) Routine 11/21/2023 12:10 PM YARN SPINNER PREPARE PLATELET PHERESIS UNIT(S) Routine 11/21/2023 12:02 PM YARN SPINNER URIC ACID BLOOD STAT 11/21/2023 10:45 AM YARN SPINNER Acute myeloid leukemia in remission (HCC) TYPE + SCREEN PANEL STAT 11/21/2023 1 0:45 AM YARN SPINNER Acute myeloid leukemia in remission (HCC) CBC W AUTO DIFFERENTIAL STAT 11/21/2023 10:45 AM YARN SPINNER Acute myeloid leukemia in remission (HCC) COMPREHENSIVE METABOLIC PANEL STAT 11/21/2023 10:45 AM YARN SPINNER Acute myeloid leukemia in remission (HCC) PHOSPHORUS BLOOD STAT 11/21/2023 10:4 5 AM YARN SPINNER Acute myeloid leukemia in remission (HCC) MAGNESIUM BLOOD STAT 11/21/2023 10:45 AM YARN SPINNER Acute myeloid leukemia in remission (HCC) LDH BLOOD STAT 11/21/2023 10:45 AM YARN SPINNER Acute myeloid leukemia in remission (HCC) documented [...] DATE/TIME OF EXAM: ??11/24/2023 2:11 PM, LOCATION ??[facility] 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 in [...] CONTRAST, DATE/TIME OF EXAM: 42:11 PM, LOCATION [facility] 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 in [...] CT ORDERABLES * (ABNORMAL) PLATELET COUNT AUTO (11/21/2023 1:00 PM YARN SPINNER) Platelet Count 41(L) 150 - 420 x10E9/L 11/21/2023 2:21 PM YARN SPINNER [facility] Blood BLOOD SPECIMEN / Unknown Venipuncture / Unknown 11/21/2023 1:00 PM YARN SPINNER 11/21/2023 1:10 PM YARN SPINNER Britni Winston PA-C LAB - HEMATOLOGY ORD ERABLES [facility] [address] [place] [address], [facility] [phone] * TRANSFUSE PLATELET PHERESIS UNIT(S) (11/21/2023 12:55 PM YARN SPINNER) Britni Winston PA-C NURSING - BLOOD PROD TRANSFUSION * TRANSFUSE PLATELET PHERESIS UNIT(S), 1 Units (11/21/2023 12:55 PM YARN SPINNER) Britni Winston PA-C NURSING - BLOOD PROD TRANSFUSION * PREPARE PLATELET PHERESIS UNIT(S), 1 Units (11/21/2023 12:02 PM YARN SPINNER) Unit Description LRPLTphere B7 IR [facility] BLOOD BANK LAB Unit ABO A [facility] BLOOD [facility] Unit Rh POS [facility] BLO[facility] Product Number P31 [facility] B LOOD [facility]ANK [facility] Unit Donor # [id number] [facility] Unit Status transfused [facility] BLO OD BANK LAB Product Code [id number] [facility] BLO OD BANK LAB Blood Type Barcode 6200 [facility] BLOOD [facility] LAB Expiration Date [id number] [facility] BLOOD [facility]ANK LAB Blood Bank BLOOD SPECIMEN / Unknown 11/21/2023 10:53 AM YARN SPINNER Britni Winston PA-C LAB - BLOOD BANK ORD ERABLES [facility] BLOOD [facility] LAB [address] [place] [address], [facility] [phone] * TYPE + SCREEN PANEL (11/21/2023 10:45 AM YARN SPINNER) Antibody Screen NEG 11:47 AM YARN SPINNER [facility] BLOOD BANK LAB ABO Rh O POS 11/21/2023 11:47 AM YARN SPINNER [facility] BLOOD BANK LAB Blood Bank BLOOD SPECIMEN / Unknown Venipuncture / Unknown 11/21/2023 10:45 AM YARN SPINNER 11/21/2023 10:53 AM YARN SPINNER Britni Winston PA-C LAB - BLOOD BANK ORD ERABLES [facility] BLOOD [facility]ANK LAB [address] [place] [address], [facility] [phone] * URIC ACID BLOOD (11/21/2023 10:45 AM YARN SPINNER) [facility] Uric Acid 3.6 2.6 - 6.0 mg/dL 11/21/2023 11:18 AM [facility] Blood BLOOD SPECIMEN / Unknown Venipuncture / Unknown 11/21/2023 10:45 AM YARN SPINNER 11/21/2023 10:52 AM YARN SPINNER Britni Winston PA-C LAB - CHEMISTRY JON NAIDU Performing Organization Address City/[facility]/ZIP Co de Phone Number [address] [address], [facility] [phone] * LDH BLOOD (11/21/2023 10:45 AM YARN SPINNER) [facility] LDH Total 193 125 - 243 Units/L 11/21/2023 11:18 AM [facility] Blood BLOOD SPECIMEN / Unknown Venipuncture / Unknown 11/21/2023 10:45 AM YARN SPINNER 11/21/2023 10:52 AM YARN SPINNER Britni Winston PA-C LAB - CHEMISTRY JON NAIDU [address] [address], [facility] [phone] * (ABNORMAL) CBC WITH DIFFERENTIAL (11/21/2023 10:45 AM YARN SPINNER) [facility] WBC 0.4(LL) 4.0 - 10.7 x10E9/L 11/21/2023 1:33 PM [facility] Comment:No differential repo rted. WBC count <0.5 RBC Count 2.55(L) 3.90 - 5.20 x10E12/L 11/21/2023 1:33 PM [facility] Hemoglobin 7.4(L) 11.9 - 15.8 g/dL 11/21/2023 1:33 PM [facility] Hematocrit 19.9(L) 34.8 - 46.1 % 11/21/2023 1:33 PM [facility] MCV 78.0(L) 80.0 - 98.0 fL 11/21/2023 1:33 PM [facility] MCH 29.0 26.7 - 33.6 pg 11/21/2023 1:33 PM [facility] MCHC 37.2(H) 31.7 - 36.3 g/dL 11/21/2023 1:33 PM [facility] RDW-CV 12.8 11.3 - 14.8 % 11/21/2023 1:33 PM [facility] Platelet Count 23(L) 150 - 420 x10E9/L 11/21/2023 1:33 PM [facility] MPV 11.0 7.8 - 11.4 fL 11/21/2023 1:33 PM [facility] Blood BLOOD SPECIMEN / Unknown Venipuncture / Unknown 11/21/2023 10:45 AM YARN SPINNER 11/21/2023 10:52 AM YARN SPINNER Britni Winston PA-C LAB - HEMATOLOGY ORD ERABLES [address] [address], [facility] [phone] * MAGNESIUM BLOOD (11/21/2023 10:45 AM YARN SPINNER) Magnesium 1.7 1.6 - 2.6 mg/dL 11/21/2023 11:18 AM [facility] Blood BLOOD SPECIMEN / Unknown Venipuncture / Unknown 11/21/2023 10:45 AM YARN SPINNER 11/21/2023 10:52 AM YARN SPINNER Britni Winston PA-C LAB - CHEMISTRY ORDE RABLES [address] [address], [facility] [phone] * (ABNORMAL) COMPREHENSIVE METABOLIC PANEL (11/21/2023 10:45 AM YARN SPINNER) BUN 10 7 - 26 mg/dL 11/21/2023 11:18 AM [facility] Creatinine 0.64 0.56 - 0.96 mg/dL 11/21/2023 11:18 AM [facility] Sodium 138 136 - 145 mmol/L 11/21/2023 11:18 AM [facility] Potassium 3.6 3.5 - 4.5 mmol/L 11/21/2023 11:18 AM [facility] Chloride 110(H) 98 - 107 mmol/L 11/21/2023 11:18 AM [facility] CO2 20(L) 22 - 29 mmol/L 11/21/2023 11:18 AM [facility] Glucose 206(H) 70 - 115 mg/dL 11/21/2023 11:18 AM [facility] Calcium 9.4 8.4 - 10.2 mg/dL 11/21/2023 11:18 AM [facility] Protein Total 6.6 6.0 - 8.3 g/dL 11/21/2023 11:18 AM [facility] Albumin 3.2(L) 3.4 - 5.0 g/dL 11/21/2023 11:18 AM [facility] Bilirubin Total 0.4 0.2 - 1.2 mg/dL 11/21/2023 11:18 AM [facility] Alkaline Phosphatase 75 40 - 150 U/L 11/21/2023 11:18 AM [facility] ALT 20 5 - 55 U/L 11/21/2023 11:18 AM [facility] AST 14 5 - 34 U/L 11/21/2023 11:18 AM [facility] Anion Gap 8 6 - 16 11/21/2023 11:18 AM [facility] BUN/Creatinine Ratio 16 7 - 23 11/21/2023 11:18 AM [facility] Osmolality Calculated 291 275 - 295 mOsm/kg 11/21/2023 11:18 AM [facility] Albumin/Globulin Ratio 0.9(L) 1.1 - 2.3 11/21/2023 11:18 AM [facility] eGFR by CKD-EPI >90 >=90 mL/min/1.7 3 m2 11/21/2023 11:18 AM [facility] Blood BLOOD SPECIMEN / Unknown Venipuncture / Unknown 11/21/2023 10:45 AM YARN SPINNER 11/21/2023 10:52 AM YARN SPINNER Britni Winston PA-C LAB - CHEMISTRY JON NAIDU Performing Organization Address City/[facility]/ZIP Co de Phone Number [address] [address], [facility] [phone] * (ABNORMAL) PHOSPHORUS BLOOD (11/21/2023 10:45 AM YARN SPINNER) Phosphorus 2.2(L) 2.9 - 5.1 mg/dL 11/21/2023 11:18 AM YARN SPINNER [facility] Blood BLOOD SPECIMEN / Unknown Venipuncture / Unknown 11/21/2023 10:45 AM YARN SPINNER 11/21/2023 10:52 AM YARN SPINNER Britni Winston PA-C LAB - CHEMISTRY JON NAIDU Performing Organization Address City/[facility]/ZIP Co de Phone Number [address] [address], [place] [phone] documented in this encounter Visit Diagnoses Diagnosis 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
--- OUTSIDE RECORDS SUMMARY | 2024-08-31 21:29 | XMS_ITS | Encounter Summary ---
Author Organization [facility], [facility] Address [address] [place], [place] [address] [address] Care Team Providers Care Carpenter Mold Name Role Phone Nilam Mayers MD Primary Care Provider +1- [phone] Encounter Details Date Type Department Care Team (Late st Contact Info) Description 11/27/2023 Orders Only [facility] [address] [place] [address] Remington Stafford MD [facility]1 S [facility] OF HEMATOLOGY & [place] [address] Social History Tobacco Use Types Packs/Day Years [...] medical care, and heating? Patient declined 12/01/2023 [facility] of Occupat ional Health - Occupational Stress [...] st Contact Info) Description 10/27/2024 10:30 AM LAND TITLE EXAMINER Appointment [facility] [address] [place] [address] Hussain Carias MD [address] [place] [phone] Britni Winston PA-C [address] [place] [address] 11/17/2024 9:00 AM LAND TITLE EXAMINER Office Visit [facility] - Ophthalmology [address] [place] [phone] Song Hobson MD [facility]5 [facility] DEPT [place] [address] documented as of this encounter Visit Diagnoses Not on filedocumented in this encounter Care Teams Carpenter Mold Relationship Specialty Start Date End Date Nilam Mayers MD [address] [place] [phone] PCP - General Family Medicine 09/04/23 04/18/24 documented as of this encounter
--- OUTSIDE RECORDS SUMMARY | 2024-08-31 21:29 | XMS_ITS | Encounter Summary ---
Author Organization [facility] Address [address] [place] [address] Care Team Providers Care Park Guard Name Role Phone Nilam Mayers MD Primary Care Provider +1- [phone] Encounter Details Date Type Department Care Team (Latest Contact Info) Description 11/12/2023 10:36 AM BEARING INSPECTOR - 11/12/2023 11:59 PM [facility] Hospital Encounter [facility] [address] [place] [address] Hussain Carias MD [address] [place] [address] Britni Winston, PABaronC [address] [place] [address] Juany Workman RN Discharge Disposition: [...] care, and heating? Not very hard 11/03/2023 [facility] of Occupat ional Health - Occupational Stress [...] slept in a intermediate (including now)? No 11/03/2023 Sex and Gender Information Value Date Recorded Sex Assigned at Not on file Gender Identity Female 02/13/2024 1:12 PM CDT Sexual Orientation Not on file documented as of this encounter Last Filed Vital Signs Vital Sign Reading Time Taken Comments Blood Pressure 135/80 11/12/2023 11:31 AM BEARING INSPECTOR Pulse 105 11/12/2023 11:40 AM BEARING INSPECTOR Temperature 36.3 ??C (97.4 ??F) 11/12/2023 1 1:31 AM BEARING INSPECTOR Respiratory Rate 18 11/12/2023 11:3 1 AM BEARING INSPECTOR Oxygen Saturation 100% 11/12/2023 11: 31 AM BEARING INSPECTOR Inhaled Oxygen Concentration - - Weight 108.3 kg (238 lb 11.2 oz) 2023 11:31 AM BEARING INSPECTOR Height - - Body Mass Index 43.65 11/06/2023 2:31 PM BEARING INSPECTOR documented in this encounter Functional Status Functional [...] 11/04/2023 12/06/2023 posaconazole (Noxafil) 100 MG tabletIndications:Ac [place] myeloid leukemia in remission (HCC) Take 3 (three) tablets by mouth daily with dinner 90 tablet 5 11/03/2023 12/15/2023 potassium chloride ER 10 MEQ tablet Take 2 (two) tablets by mouth once daily 30 tablet 3 11/10/2023 12/15/2023 prochlorperazine (Compazine) 10 MG tabletIndications:Ac [place] myeloid leukemia in remission (HCC) Take 1 (one) tablet by mouth every 6 hours as needed for Nausea/Vomiting 30 tablet 11 11/04/2023 12/06/2023 valACYclovir (Valtrex) 500 MG tabletIndications:Ac [place] myeloid leukemia in remission (HCC) Take 1 (one) tablet by mouth 2 times daily 60 tablet 11/03/2023 08/23/2024 documented as of this encounter Progress Notes * Britni Winston PA-C - 11/12/2023 12:18 PM CST [facility] Hematology/Oncology Clinic Visit Note Date of visit: 11/12/2023 Patient: Sarah Mckeon Oncologist: Dr. 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 Was treated with vanc cefepime and then CTX, but had persistent pancytopenia. Bone marrow biopsy was done which showed 78% blast on the bone marrow flow cytometry and confirmed NPM1 mutation. Pt was transferred to [facility] for concern for AML. Count recovery BMBx performed at [facility] on 10/01/23 confirmed no blasts, MRD pending as of 10/13/23. SH - Lives alone with daughter (11 y old); her daughter is currently staying with her dad. No PMHx of cancers; she is adopted so FH is limited. No drugs or smoking or alcohol use. C1 7+3 Induction, 09/06/23 C1 HiDAC, 10/04/23 C2 HiDAC, 11/03/23 INTERIM HISTORY Mora presents to clinic for f/u s/p cycle 2 HiDAC. Notes she had some rhinorrhea and a slight cough starting on 11/08/23, however RVP was negative 11/10/23. Denies F/C. Denies CP/SOB. Received Depo shot today 11/12/23. Since starting dexamethasone eye drops with this cycle of HiDAC (completed 11/10/23), she has noted some mild dry eye sensation, which has been relieved with frequent use of her PFAT. Overall, feels well today. Denies D/C/N/V/abd pain. Denies vaginal bleeding today. States she has intermittent slight spotting throughout the past couple of weeks, no pads used. VSS PERFORMANCE STATUS: KPS 90 / ECOG 1 ONCOLOGY HISTORY: Cancer Staging No matching staging information was found for the patient. 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 famotidine (Pepcid) 20 MG tablet Take [...] date: 2004 Quit date: 2010 Years since quittin.1 ??? Smokeless tobacco: Never [...] (Non-Medical): No Stress: Stress Concern Present (11/03/2023) [facility] of Occupational Health - Occupational Stress Questionnaire [...] Constitutional: Negative for chills and fever. HENT: Positive for congestion. Negative for sore throat. Eyes: Negative for blurred vision, double vision, pain and redness. Respiratory: Positive for cough. Negative for hemoptysis and shortness of breath. Cardiovascular: Negative for chest pain and leg swelling. Gastrointestinal: Negative for abdominal pain, blood in stool, constipation, diarrhea, melena, nausea and vomiting. Genitourinary: Negative for dysuria. Skin: Negative for rash. Neurological: Negative for dizziness and headaches. PHYSICAL EXAM: Wt Readings from Last 3 Encounters: 11/12/23 108.3 kg (238 lb 11.2 oz) 11/10/23 110.4 kg (243 lb 4.8 oz) 11/06/23 112.7 kg (248 lb 7.3 oz) Temp Readings from Last 3 Encounters: 11/12/23 97.4 ??F (Oral) 11/10/23 98.5 ??F 11/08/23 97.3 ??F (Oral) BP Readings from Last 3 Encounters: 11/12/23 135/80 11/10/23 115/68 11/08/23 146/78 Pulse Readings from Last 3 Encounters: 11/12/23 105 11/10/23 89 11/08/23 98 Physical Exam Vitals reviewed. Constitutional: General: She is not in acute distress. Appearance: She is not ill-appearing. HENT: Head: Normocephalic and atraumatic. Eyes: General: Lids are normal. Extraocular Movements: [...] Behavior normal. LABS: Recent Labs Component Name 11/12/23 1136 11/10/23 1541 WBC 0.4* - HGB 8.6* - HCT 24.3* - PLTCOUNT - 58* Recent Labs Component Name 11/12/23 1136 11/10/23 1312 11/07/23 2103 11/06/23200711/05/23 2257 11/03/23 0956 10/29/23 1048 10/27/23 1409 10/24/23 1212 10/13/23 2140 10/13/23 1354 10/02/23 2132 10/01/23 2119 09/30/23200809/07/23200709/06/23 2143 09/05/23 0909 09/04/23 0525 WBC 0.4* 1.1* 2.2* 3.5* 4.2 - 3.2* 2.8* 1.3* - 0.5* - 4.1 4.1 - 0.6* - 1.9* RBC 2.96* 2.80* 2.82* 2.79* 2.38* - 2.51* 2.48* 2.69* - 2.54* - 2.36* 2.32* - 2.45* - 2.51* HGB 8.6* 8.3* 8.2* 8.1* 7.0* - 7.4* 7.3* 7.8* - 7.5* - 7.3* 7.1* - 7.9* - 8.1* HCT 24.3* 23.0* 23.4* 23.7* 20.3* - 20.2* 19.7* 21.1* - 20.2* - 21.5* 20.4* - 22.0* - 22.6* MCV 82.1 82.1 83.0 84.9 85.3 - 80.5 79.4* 78.4* - 79.5* - 91.1 87.9 - 89.8 - 90.0 MCH 29.1 29.6 29.1 29.0 29.4 - 29.5 29.4 29.0 - 29.5 - 30.9 30.6 - 32.2 - 32.3 MCHC 35.4 36.1 35.0 34.2 34.5 - 36.6* 37.1* 37.0* - 37.1* - 34.0 34.8 - 35.9 - 35.8 MPV - 12.6* 10.9 11.2 11.5* - 11.1 11.8* 10.8 - - - 11.4 11.0 - 11.8* - - NEUTPCT - - 92.8* 87.6* 86.8* - - - - - - - - - - - - - MONOPCT - - 0.9* 4.3 6.0 - - - - - - - - - - - - - EOSPCT - - 0.0 0.0 0.0 - - - - - - - - - - - - - BASOPCT - - 0.0 0.0 0.0 - - - - - - - - - - - - - MONO - - - - - - 1.09* 1.15* 0.49 - - - 0.78 1.07* - 0.02* - 0.02* EOS - 0.01 - - - - - - - - - - 0.04 0.04 - - - 0.02 BASO - - - - - - - - - - 0.01 - - - - 0.01 - 0.04 - = values in this interval not displayed. Recent Labs Component Name 11/10/23 1312 11/07/23 2103 11/06/232007 BUN 15 17 15 CREATININE 0.62 0.60 0.64 NA 144 142 138 POTASSIUM 3.7 4.2 3.7 CL 109* 108* 108* CALCIUM 9.0 9.0 8.5 PROT 6.1 6.1 6.1 ALB 3.3* 3.3* 3.3* TBILI 0.8 0.6 0.6 ALKPHOS 66 67 62 ALT 28 34 27 AST 17 21 15 ANIONGAP 11 11 7 BCR 24* 28* 23 OSMOLALITY 302* 306* 294 EGFR >90 >90 >90 Pathology Results RESULT Normal FISH Result: inv(3) or t(3;3) RPN1::MECOM Fusion: not detected Deletion 5q: not detected Monosomy 7: not detected Deletion 7q: not detected t(8;21) RUNX1::UQHJ0E7 Fusion: not detected 11p15 (NUP98) Rearrangement: not detected 11q23 (KMT2A) Rearrangement: not detected inv(16) or t(16;16) CBFB::MYH11 Fusion: not detected INTERPRETATION There was no evidence of RPN1::MECOM fusion due to 3q21/3q26.2 inversion or translocation, deletion 5q31, monosomy 7, deletion 7q31, RUNX1::OEBU4B9 fusion due to translocation (8;21)(q21.3;q22), 11p15 (NUP98) [...] only. Flow Cytometry Summary Concurrent flow cytometry ([id number]) shows acute myeloid leukemia. Specimens A Bone [...] agent. Report dictated by Sivakumar Garrido DO (Accounting Tutor). Attending Physician: Dr. Augustine Davison Cassandra Consultant: Dr. Sivakumar Garrido DO (Accounting Tutor). The procedure was performed by the: The commercial real estate assistant, and the attending radiologist was present [...] 38 year old female who transferred to [facility] on 09/03/2023 for suspected AML. Patient started 7 + 3 (cytarabine and idarubicin) on 09/06/2023. 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 1. AML, NPM-1 mut, fav risk in CR and molecular remission after 7+3 -Pancytopenia, neutropenia -Transferred from [facility] after a BMBX showed 78% [...] is leukemic retinal infiltration, HiDAC should suffice. I reviewed the literature and recommendation is systemic chemo for leukemic retinal infiltration. [...] improved per ophtho 10/13. - Ophtho f/u 11/20/23. 4. Dry Eyes - Per ophthalmology, dexamethasone [...] this time - F/u with Dr. Hobson 11/20/23 5. Elevated ICP - Noted while admitted [...] time - F/u with Dr. Hobson 6. Small volume SAH in right central sulcus - Per CT 10/01/23 - NSGY will f/u with pt in clinic w/ Dr. Lomeli on 11/19/23 w/ CTH non con for imaging. - Keep plts >20K at this time. PLAN: - labs reviewed, plts 29 per prelim count. Will adjust platelet threshold to >20K as pt no longer has vaginal bleeding but we still have some concern with recent retinal hemorrhage and small volume SAH hx. - Continue OI ppx with Valtrex, Levaquin, and posaconazole. - Transfusion parameters: (leukoreduced and irradiated blood products) pRBC to keep Hgb >7 if hemodynamically stable and no bleeding. PLT transfusion to keep PLT >20K at this time due to recent(small) SAH, vaginal bleeding, and retinal hemorrhages. F/u: f/u on 11/14/23 and 11/17/23 for labs only, and on 11/18 for labs and ABEL visit Britni Winston PA-C Blood & Marrow Transplant [facility] ING INSPECTOR documented in this encounter Plan of Treatment Upcoming Encounters Date Type Department Care Team (Late st Contact Info) Description 10/27/2024 10:30 AM BEARING INSPECTOR Appointment [facility] [address] [place] [address] Hussain Carisa MD [address] [place] [phone] Britni Winston PA-C [address] [place] [address] 11/17/2024 9:00 AM BEARING INSPECTOR Office Visit [facility] - Ophthalmology [address] [facility] [place] [address] Song Hobson MD [address] [facility] [place] [phone] documented as of this encounter Procedures Procedure Name Priority Date/Time Associated Diagnosis Comments TYPE + SCREEN PANEL STAT 11/12/2023 1 2:58 PM BEARING INSPECTOR Acute myeloid leukemia in remission (HCC) URIC ACID BLOOD STAT 11/12/2023 11:36 AM BEARING INSPECTOR Acute myeloid leukemia in remission (HCC) CBC W AUTO DIFFERENTIAL STAT 11/12/2023 11:36 AM BEARING INSPECTOR Acute myeloid leukemia in remission (HCC) COMPREHENSIVE METABOLIC PANEL STAT 11/12/2023 11:36 AM BEARING INSPECTOR Acute myeloid leukemia in remission (HCC) PHOSPHORUS BLOOD STAT 11/12/2023 11:3 6 AM BEARING INSPECTOR Acute myeloid leukemia in remission (HCC) MAGNESIUM BLOOD STAT 11/12/2023 11:36 AM BEARING INSPECTOR Acute myeloid leukemia in remission (HCC) LDH BLOOD STAT 11/12/2023 11:36 AM BEARING INSPECTOR Acute myeloid leukemia in remission (HCC) documented in this encounter Results * TYPE + SCREEN PANEL (11/12/2023 12:58 PM BEARING INSPECTOR) Antibody Screen NEG 2:16 PM BEARING INSPECTOR [facility] ABO Rh O POS 11/12/2023 2:16 PM BEARING INSPECTOR [facility] Blood Bank BLOOD SPECIMEN / Unknown Venipuncture / Unknown 11/12/2023 12:58 PM BEARING INSPECTOR 11/12/2023 1:28 PM BEARING INSPECTOR Britni Winston PA-C LAB - BLOOD BANK ORD GELY Performing Organization Address [facility]/ZIP Co de Phone Number [facility] [address] [place] [address], [place] [phone] * URIC ACID BLOOD (11/12/2023 11:36 AM BEARING INSPECTOR) Uric Acid 3.4 2.6 - 6.0 mg/dL 11/12/2023 12:40 PM BEARING INSPECTOR [facility] Blood BLOOD SPECIMEN / Unknown Venipuncture / Unknown 11/12/2023 11:36 AM BEARING INSPECTOR 11/12/2023 11:49 AM BEARING INSPECTOR Britni Winston PA-C LAB - CHEMISTRY JON NAIDU Performing Organization Address [facility]/ZIP Co de Phone Number [address] [address], [place] [phone] * LDH BLOOD (11/12/2023 11:36 AM BEARING INSPECTOR) Pathologist [facility] LDH Total 222 125 - 243 Units/L 11/12/2023 12:21 PM BEARING INSPECTOR [facility] Blood BLOOD SPECIMEN / Unknown Venipuncture / Unknown 11/12/2023 11:36 AM BEARING INSPECTOR 11/12/2023 11:49 AM BEARING INSPECTOR Britni Winston PA-C LAB - CHEMISTRY JON NAIDU Performing Organization Address City/[facility]/ZIP Co de Phone Number [address] [address], [place] [phone] * (ABNORMAL) CBC WITH DIFFERENTIAL (11/12/2023 11:36 AM BEARING INSPECTOR) WBC 0.4(LL) 4.0 - 10.7 x10E9/L 11/12/2023 1:30 PM BEARING INSPECTOR [facility] Comment:No Manual Differenti al performed. WBC count < 0.5 RBC Count 2.96(L) 3.90 - 5.20 x10E12/L 11/12/2023 1:[address] [facility] Hemoglobin 8.6(L) 11.9 - 15.8 g/dL 11/12/2023 1:[address] [facility] Hematocrit 24.3(L) 34.8 - 46.1 % 11/12/2023 1:[address] [facility] MCV 82.1 80.0 - 98.0 fL 11/12/2023 1:[address] [facility] MCH 29.1 26.7 - 33.6 pg 11/12/2023 1:[address] [facility] MCHC 35.4 31.7 - 36.3 g/dL 11/12/2023 1:[address] [facility] RDW-CV 13.3 11.3 - 14.8 % 11/12/2023 1:[address] [facility] Platelet Count 29(L) 150 - 420 x10E9/L 11/12/2023 1:[address] [facility] MPV 10.8 7.8 - 11.4 fL 11/12/2023 1:[address] [facility] Preliminary Absolute Neutrophil 11/12/2023 1:[address] [facility] Comment:Preliminary ANC pend ing manual confirmation Blood BLOOD SPECIMEN / Unknown Venipuncture / Unknown 11/12/2023 11:36 AM BEARING INSPECTOR 11/12/2023 11:50 AM [facility] Britni Winston PA-C LAB - HEMATOLOGY ORD ERABLES Performing Organization Address City/State/[facility] Co de Phone Number [facility] [address] [place] [address], [facility] [phone] * MAGNESIUM BLOOD (11/12/2023 11:36 AM BEARING INSPECTOR) Magnesium 2.0 1.6 - 2.6 mg/dL 11/12/2023 12:[address] [facility] Blood BLOOD SPECIMEN / Unknown Venipuncture / Unknown 11/12/2023 11:36 AM BEARING INSPECTOR 11/12/2023 11:49 AM BEARING INSPECTOR Britni Winston PA-C LAB - CHEMISTRY JON NAIDU [facility] [address] [place] [address], [facility] [phone] * (ABNORMAL) COMPREHENSIVE METABOLIC PANEL (11/12/2023 11:36 AM BEARING INSPECTOR) BUN 15 7 - 26 mg/dL 11/12/2023 12:[address] [facility] Creatinine 0.63 0.56 - 0.96 mg/dL 11/12/2023 12:[address] [facility] Sodium 139 136 - 145 mmol/L 11/12/2023 12:[address] [facility] Potassium 3.9 3.5 - 4.5 mmol/L 11/12/2023 12:[address] [facility] Chloride 109(H) 98 - 107 mmol/L 11/12/2023 12:[address] [facility] CO2 21(L) 22 - 29 mmol/L 11/12/2023 12:[address] [facility] Glucose 135(H) 70 - 115 mg/dL 11/12/2023 12:[address] [facility] Calcium 9.6 8.4 - 10.2 mg/dL 11/12/2023 12:[address] [facility] Protein Total 6.7 6.0 - 8.3 g/dL 11/12/2023 12:[address] [facility] Albumin 3.3(L) 3.4 - 5.0 g/dL 11/12/2023 12:[address] [facility] Bilirubin Total 0.9 0.2 - 1.2 mg/dL 11/12/2023 12:[address] [facility] Alkaline Phosphatase 73 40 - 150 U/L 11/12/2023 12:[address] [facility] ALT 31 5 - 55 U/L 11/12/2023 12:[address] [facility] AST 16 5 - 34 U/L 11/12/2023 12:[address] [facility] Anion Gap 9 6 - 16 11/12/2023 12:[address] [facility] BUN/Creatinine Ratio 24(H) 7 - 23 11/12/2023 12:[address] [facility] Osmolality Calculated 291 275 - 295 mOsm/kg 11/12/2023 12:[address] [facility] Albumin/Globulin Ratio 1.0(L) 1.1 - 2.3 11/12/2023 12:[address] [facility] eGFR by CKD-EPI >90 >=90 mL/min/1.7 3 m2 11/12/2023 12:[address] [facility] Blood BLOOD SPECIMEN / Unknown Venipuncture / Unknown 11/12/2023 11:36 AM BEARING INSPECTOR 11/12/2023 11:49 AM BEARING INSPECTOR Britni Winston PA-C LAB - CHEMISTRY JON NAIDU [facility] [address] [place] [address], [place] [phone] * PHOSPHORUS BLOOD (11/12/2023 11:36 AM BEARING INSPECTOR) Phosphorus 3.2 2.9 - 5.1 mg/dL 11/12/2023 12:[address] [facility] Blood BLOOD SPECIMEN / Unknown Venipuncture / Unknown 11/12/2023 11:36 AM BEARING INSPECTOR 11/12/2023 11:49 AM BEARING INSPECTOR Britni Winston PA-C LAB - CHEMISTRY JON NAIDU [facility] [address] [place] [address], [place] [phone] documented in this encounter Visit Diagnoses Diagnosis Metabolic acidosis Acidosis 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 documented in this encounter Care Teams Park Guard Relationship Specialty Start Date End Date Nilam Mayers MD [address] [place] [phone] PCP - General Family Medicine 09/04/23 04/18/24 documented as of this encounter
--- OUTSIDE RECORDS SUMMARY | 2024-08-31 21:29 | XMS_ITS | Encounter Summary ---
Author Organization [facility] Address [address] [place] [address] [place] [address] Care Team Providers Care Substance Abuse Nurse Name Role Phone Nilam Mayers MD Primary Care Provider +1- [phone] Encounter Details Date Type Department Care Team (Latest Contact Info) Description 11/14/2023 Travel Social History Tobacco Use Types Packs/Day [...] care, and heating? Not very hard 11/03/2023 [facility] [place] of Occupat ional Health - Occupational Stress [...] in a nursing home (including now)? No 11/03/2023 Sex and Gender [...] st Contact Info) Description 10/27/2024 10:30 AM EXPERIMENTAL ELECTRONICS DEVELOPER Appointment [facility] [address] [place] [address] Hussain Carias MD [address] [place] [phone] Britni Winston, PABaronC [address] [place] [address] 11/17/2024 9:00 AM EXPERIMENTAL ELECTRONICS DEVELOPER Office Visit [facility] - Ophthalmology [address] [place] [phone] Song Hobson MD [address] [place] [address] [place] [address] documented as of this encounter Visit Diagnoses Not on filedocumented in this encounter Care Teams Substance Abuse Nurse Relationship Specialty Start Date End Date Nilam Mayers MD [address] [place] [phone] PCP - General Family Medicine 09/04/23 04/18/24 documented as of this encounter
--- OUTSIDE RECORDS SUMMARY | 2024-08-31 21:29 | XMS_ITS | Encounter Summary ---
Author Organization [facility] Address [address] [place] [address] [place] [address] Care Team Providers Care Dress Marker Name Role Phone Nilam Mayers MD Primary Care Provider +1- [phone] Encounter Details Date Type Department Care Team (Latest Contact Info) Description 11/26/2023 Travel Social History Tobacco Use Types Packs/Day [...] care, and heating? Not very hard 11/03/2023 [facility] [place] of Occupat ional Health - Occupational Stress [...] slept in a longterm (including now)? No 11/03/2023 Sex and Gender [...] st Contact Info) Description 10/27/2024 10:30 AM SUB MASTER Appointment [facility] [address] [place] [address] Hussain Carias MD [address] [place] [phone] Britni Winston, PABaronC [address] [place] [address] 11/17/2024 9:00 AM SUB MASTER Office Visit [facility] - Ophthalmology [address] [place] [phone] Song Hobson MD [address] [place] [address] DE[place] [address] documented as of this encounter Visit Diagnoses Not on filedocumented in this encounter Care Teams Dress Marker Relationship Specialty Start Date End Date Nilam Mayers MD [address] [place] [phone] PCP - General Family Medicine 09/04/23 04/18/24 documented as of this encounter
--- OUTSIDE RECORDS SUMMARY | 2024-08-31 21:29 | XMS_ITS | Encounter Summary ---
Author Organization [facility] Address [address] [place] [address] [place] [address] Care Team Providers Care Global Transportation Manager Name Role Phone Nilam Mayers MD Primary Care Provider [phone] Encounter Details Date Type Department Care Team (Latest Contact Info) Description 11/19/2023 Travel Social History Tobacco Use Types Packs/Day [...] care, and heating? Not very hard 11/03/2023 [facility] [place] [facility] - Occupational Stress [...] or slept in a long-term (including now)? No 11/03/2023 Sex and Gender [...] st Contact Info) Description 10/27/2024 10:30 AM [employer]ER Appointment [facility] [address] [place] [address] Hussain Carias MD [address] [place] [phone] Britni Winston, PABaronC [address] [place] [address] 11/17/2024 9:00 AM [employer] Office Visit [facility] - Ophthalmology [address] [place] [phone] Song Hobson MD [address] [place] [address] [place] [phone] documented as of this encounter Visit Diagnoses Not on filedocumented in this encounter Care Teams Global Transportation Manager Relationship Specialty Start Date End Date Nilam Mayers MD [address] [place] [phone] PCP - General Family Medicine 09/04/23 04/18/24 documented as of this encounter
--- OUTSIDE RECORDS SUMMARY | 2024-08-31 21:29 | XMS_ITS | Encounter Summary ---
Author Organization [facility] Address [address] [place], [place] [address] [address] Care Team Providers Care Sales Exec Name Role Phone Nilam Mayers MD Primary Care Provider [phone] Reason for Visit * Auth/Cert (Routine) Specialty Diagnoses / Procedures Referred By Contac t Referred To Contact Diagnoses AML Referral ID Status Reason Start Date Expiration Date Visits Re quested Visits Authorized [id number] 1 1 Encounter Details Date Type Department Care Team (Latest Contact Info) Description 11/03/2023 6:09 PM WOOD CASKET ASSEMBLER - 11/08/2023 1:15 PM WOOD CASKET ASSEMBLER Hospital Encounter [facility] [address]UTE [address] [place] [id number] Hussain Carias MD [address] [place] [id number] Aakash Pierson MD [address] [facility] [place] [address] Mauro Canales MD [address] [facility] [place] [address] Hospitalist Discharge Disposition: Home or [...] care, and heating? Not very hard 11/03/2023 [facility] of Occupat ional Health - Occupational [...] Sign Reading Time Taken Comments Blood Pressure 146/78 11/08/2023 6:04 AM WOOD CASKET ASSEMBLER Pulse 98 11/08/2023 6:04 AM WOOD CASKET ASSEMBLER Temperature 36.3 ??C (97.3 ??F) 11/08/2023 6:04 AM CS T Respiratory Rate 18 11/08/2023 6:04 AM WOOD CASKET ASSEMBLER Oxygen Saturation 98% 11/08/2023 6:04 AM WOOD CASKET ASSEMBLER Inhaled Oxygen Concentration - - Weight 112.7 kg (248 lb 7.3 oz) 11/06/2023 2:31 PM WOOD CASKET ASSEMBLER Height 157.5 cm (5' 2.01 ) 11/06/2023 2:31 PM CS T Body Mass Index 45.43 11/06/2023 2:31 PM WOOD CASKET ASSEMBLER documented in this encounter Functional Status Functional [...] 11/03/2023 documented as of this encounter Discharge Summaries * Mauro Canales MD - 11/08/2023 12:59 PM CST Physician Discharge Summary Patient ID: Selvin Mckeon [id number] 38 year old 1985 Admit date: 11/03/2023 Discharge date: 11/08/2023 Admitting Physician: Hussain Carias MD Discharge Physician: Mauro Canales Admission Diagnoses: AML, admitted for chemotherapy Discharge Diagnoses: AML Discharged Condition: stable Hospital Course: 38 y/o F w/ PMH AML dx presents for chemotherapy. Hem/onc was consulted. She received cycle 2 of HiDAC (high-dose cytarabine). She was continued on valtrex, posaconazole and due to neutropeniashe was started on levaquin. She was also continued on dexamethasone eye drops. She received 1 U pRBC for Hb < 7 but otherwise did not require further pRBC or plt transfusions. She did well with he r chemo and was discharged home. She will follow-up in BMT clinic 11/10. Consults: Oncology Significant Diagnostic Studies: See hospital course Discharge Exam: General: NAD and cooperative, obese HEENT: NCAT, PERRLA, EOMI, MMM Neck: Supple, non-tender Cardio: RRR, no murmurs Resp: Lungs clear to auscultation bilaterally, no wheezes or crackles Abdomen: Soft, non-tender, non-distended, bowel sounds normal Extremities: No edema Skin: No rash or lesions Neuro: AO x 4, CN 2 to 12 grossly intact, no focal deficits Disposition: Home Current Discharge Medication List START taking these medications Instructions Authorizing Provider dexAMETHasone 0.1 % ophthalmic suspension Commonly known as: Decadron Quantity Dispensed: 5 mL Instill 2 (two) drops into both eyes 4 times daily for 32 doses Mauro Canales MD levoFLOXacin 500 MG tablet Commonly known as: Levaquin Quantity Dispensed: 30 tablet Take 1 (one) tablet by mouth once daily French Novoa ondansetron 8 MG tablet Commonly known as: Zofran Quantity Dispensed: 100 tablet Take one tablet by mouth twice a day 1 hour before midostaurin on days 8 to 21 and one tablet every12 hours as needed for breakthrough nausea/vomiting. Reasons: Nausea and Vomiting caused by Cancer Chemotherapy Hussain Carias MD CONTINUE taking these medications which have NOT CHANGED Instructions Authorizing Provider ARTIFICIAL TEARS OP famotidine 20 MG tablet Commonly known as: Pepcid Quantity Dispensed: 60 tablet Take 1 (one) tablet by mouth 2 times daily Britni Winston PA-C medroxyPROGESTERone 150 MG/ML vial Commonly known as: Depo-Provera Inject 1 mL into muscle every 84 days posaconazole 100 MG tablet Commonly known as: Noxafil Quantity Dispensed: 90 tablet Take 3 (three) tablets by mouth daily with dinner Cori Hill APRN-CHU potassium chloride ER 10 MEQ tablet Quantity Dispensed: 30 tablet Take 2 (two) tablets by mouth once daily Britni Winston PA-C prochlorperazine 10 MG tablet Commonly known as: Compazine Quantity Dispensed: 30 tablet Take 1 (one) tablet by mouth every 6 hours as needed for Nausea/Vomiting Hussain Carias MD valACYclovir 500 MG tablet Commonly known as: Valtrex Quantity Dispensed: 60 tablet Take 1 (one) tablet by mouth 2 times daily Cori Schweickart, STEREOPTICIAN-REFUND CLERK STOP taking these medications acetaZOLAMIDE 250 MG tablet Commonly known as: Diamox dicyclomine 20 MG tablet Commonly known as: Bentyl ondansetron (disintegrating) 8 MG tablet Commonly known as: Zofran ODT sodium - potassium phosphates [id number] MG tablet Commonly known as: K Phos Neutral Signed: Mauro Canales MD 11/08/2023 12:59 PM CASKET ASSEMBLER documented in this encounter Discharge Instructions * Discharge Instructions* Mauro Canales MD - 11/08/2023 12:56 PM WOOD CASKET ASSEMBLER Dear Alfreditolilia, Please take your medications as prescribed Please follow-up with your Oncologist We wish you the best! CASKET ASSEMBLER * Discharge Instr - Activity* Tram Carrillo RN - 11/08/2023 1:00 PM WOOD CASKET ASSEMBLER Activity as tolerated. CASKET ASSEMBLER * Discharge Instr - Diet* Tram Carrillo RN - 11/08/2023 1:00 PM WOOD CASKET ASSEMBLER Diet as tolerated. CASKET ASSEMBLER documented in this encounter Medications at Time [...] times daily for 32 doses 5 mL 11/08/2023 11/12/2023 levoFLOXacin (Levaquin) 500 MG tablet Take 1 [...] 11/04/2023 12/06/2023 posaconazole (Noxafil) 100 MG tabletIndications:[place] myeloid leukemia in remission (HCC) Take 3 (three) tablets by mouth daily with dinner 90 tablet 5 11/03/2023 12/15/2023 potassium chloride ER 10 MEQ tablet Take 2 (two) tablets by mouth once daily 30 tablet 10/13/2023 11/10/2023 prochlorperazine (Compazine) 10 MG tabletIndications:[place] myeloid leukemia in remission (HCC) Take 1 (one) tablet by mouth every 6 hours as needed for Nausea/Vomiting 30 tablet 11 11/04/2023 12/06/2023 valACYclovir (Valtrex) 500 MG tabletIndications:[place] myeloid leukemia in remission (HCC) Take 1 (one) tablet by mouth 2 times daily 60 tablet 11/03/2023 08/23/2024 documented as of this encounter Progress Notes * Tram Carrillo RN - 11/08/2023 12:58 PM CST Problem: Symptom management Goal: Symptoms of nausea will be minimized Outcome: Adequate for Discharge Goal: Symptoms of stomatitis will be minimized Outcome: Adequate for Discharge Problem: Protective Precautions Goal: Patient will remain free of Nosocomial Infections Outcome: Adequate for Discharge Problem: Bleeding Precautions Goal: Excessive bleeding will be minimized Outcome: Adequate for Discharge Goal: Precautionary measures taken to prevent bleeding Outcome: Adequate for Discharge Problem: Potential for Central Venous Catheter Infection Goal: Signs and Symptoms of Central Venous Catheter Infection are Avoided Outcome: Adequate for Discharge Problem: Potential for Central Venous Catheter Occlusion Goal: Central Venous Catheter Occlusion is Avoided Outcome: Adequate for Discharge CASKET ASSEMBLER * Tiana Burciaga DO - 11/08/2023 7:13 AM CST Images from the original note were not included. 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 Hem/Onc consultation requested for above. See above for detailed hematology/oncology history. She tolerated cycle 1 well. She had some nausea/diarrhea but resolved and has not recurred since discharge. She denied any vision complaint, headaches, CP, SOB, abdominal pain or other symptoms. She received 1 unit pRBC in clinic prior to admission for Hgb 6.8. She received first dose of cycle 2 HiDAC on 11/03. Interval history: NAEO. VSS. C2D6 HiDAC. No new sx today; feeling well overnight. No overnight transfusion requirements. Discussed the plan including discharge and upcoming mgmt as below. Past Medical & Surgical History Patient Active Problem List Diagnosis ??? Hypernatremia ??? Hypophosphatemia ??? Anemia ??? Vaginal bleeding ??? IIH (idiopathic intracranial hypertension) ??? Acute hypoxic respiratory failure (CMS-HCC) ??? Pulmonary edema ??? Pancytopenia (CMS-HCC) ??? Tonsillitis ??? 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 NEGATIVE PAST MEDICAL HISTORY - SEE PROBLEM LIST Past Surgical History: Procedure Laterality Date ??? Section ??? Cholecystectomy ??? KIDNEY STONES, REMOVAL Past Oncology History Cancer Staging No matching staging information was found for the patient. Oncology History Acute myeloid leukemia in remission ([facility]) 09/03/2023 Initial Diagnosis 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 ([facility]) 09/06/2023 - Chemotherapy cytarabine (Cytosar) 460 mg [...] prevent vision loss. Active Treatment Days for Selvin Mckeon (until 11/09/2023) 11/06/2023 ONCOLOGY TREATMENT: IP AML CONSOLIDATION - AGE <60 (HIGH DOSE CYTARABINE)(SANDHU HIDAC) Day 5, Cycle 2 (Started) Pre-Medications: ondansetron (Zofran) injection 8 mg, dexAMETHasone (Decadron) injection 8 mg Chemotherapy: cytarabine (Cytosar) 6,700 mg in 0.9% NaCl IV 597 mL infusion Social History Social History Tobacco Use ??? Smoking status: Former Packs/day: 1 Types: Cigarettes Start date: 2004 Quit date: 2010 Years since quittin.1 ??? Smokeless tobacco: Never Substance Use Topics ??? Alcohol use: Yes Comment: occasional Family History Family History Family history unknown: Yes Medications SCHEDULED MEDICATIONS: 0.9% NaCl injection 3 mL, Intracatheter, q8h dexAMETHasone (Decadron) 0.1 % ophthalmic suspension 2 drop, Each Eye, 4X/DAY famotidine (Pepcid) tablet 20 mg, Oral, BID posaconazole (Noxafil) tablet 300 mg, Oral, QDAY WITH DINNER potassium chloride ER (Klor-Con M) tablet 20 mEq, Oral, QDAY valACYclovir (Valtrex) tablet 500 mg, Oral, BID [COMPLETED] cytarabine (Cytosar) 6,700 mg in 0.9% NaCl IV 597 mL infusion, Intravenous, q12h [COMPLETED] dexAMETHasone (Decadron) injection 8 mg, Intravenous, Once [COMPLETED] ondansetron (Zofran) injection 8 mg, Intravenous, q12h [COMPLETED] sodium - potassium phosphates (K Phos Neutral) tablet 1 tablet, Oral, BID [START ON 11/10/2023] levoFLOXacin (Levaquin) tablet 500 mg, Oral, QAM CONTINUOUS MEDICATIONS: PRN MEDICATIONS: 0.9% NaCl injection 1-10 mL, Intracatheter, PRN artificial tears ophthalmic solution 1 drop, Each Eye, TID PRN dicyclomine (Bentyl) tablet 20 mg, Oral, TID PRN ondansetron (disintegrating) (Zofran ODT) tablet 8 mg, Oral, BID PRN ondansetron (Zofran) injection 8 mg, Intravenous, BID PRN prochlorperazine (Compazine) injection 5 mg, Intravenous, q4h PRN prochlorperazine (Compazine) tablet 10 mg, Oral, q4h PRN Allergies No Known Allergies OBJECTIVE Physical Exam Vitals: 11/07/23 1346 11/07/23 2156 11/08/23 0115 11/08/23 0604 BP: 108/75 131/90 135/85 146/78 Pulse: 71 65 68 98 Resp: 19 18 18 18 Temp: 97.6 ??F (36.4 ??C) 97.3 ??F (36.3 ??C) 97.8 ??F (36.6 ??C) 97.3 ??F (36.3 ??C) SpO2: 100% 99% 99% 98% Weight: Height: Wt Readings from Last 3 Encounters: 11/06/23 112.7 kg (248 lb 7.3 oz) 11/03/23 112.8 kg (248 lb 9.6 oz) 10/29/23 112.1 kg (247 lb 3.2 oz) ECO General: Well-developed. No acute distress. Sitting on sofa. Head: Normocephalic, atraumatic. Eyes: No scleral icterus. Conjunctivae clear. Ears: Normal external ears. Hearing intact to voice. Nose: Symmetric nose. No visible drainage. Throat: Moist mucous membranes. No visible mouth sores. Neck: Supple, trachea midline. Heart: Normal S1, S2. Nml rate, regular rhythm. Lungs: Symmetric breath sounds. Clear to auscultation. Nonlabored respirations. Skin: Warm, dry. No visible rash. Neurologic: Alert, oriented. No gross focal neurologic deficits. Psychiatric: Cooperative. Appropriate mood and affect. Laboratory Results Reviewed Pathology Results Personally reviewed and summarized above in Hematology & Oncology History Radiology Results Personally reviewed and summarized above in Hematology & Oncology History ASSESSMENT Selvin Mckeon is a 38 year old female with Acute Myeloid Leukemia presenting for Cycle 2 consolidation with HiDAC. Hem/Onc consultation requested for chemotherapy. 1. 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 No more IT treatment planned. 2. Small volume SAH in right central sulcus - Noted on CT 10/01/23 - NSGY f/u on 11/19/23 - PLT goal >30k 3. Elevated ICP - noted during hospitalization in September, opening pressure on LP - Concern for IIH - Discharged on diamox 4. Vaginal bleeding - endorses mild spotting - medroxyprogesterone discontinued due to c/f IIH - Monthly depo shots (next dose end of October) - PLT goal >30k 5. 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 She also has levofloxacin at home. -- If neutropenia (ANC <500), please start levofloxacin - Continue dexamethasone eye drops for chemical conjunctivitis ppx while on high-dose cytarabine and continue on discharge as per order for a few days - Please transfuse Plt to maintain count >30k at this time due to small SAH, vaginal bleeding, retinal hemorrhages - Has upcoming heme/onc appt on 11/10 General transfusion parameters (leukoreduced and irradiated blood [...] to contact heme/onc consult fellow via the dump operator or AMION if any clarifications needed or any questions. Plan was discussed with hematology/oncology attending. Tiana Burciaga DO, PGY-4 Hematology/Oncology Fellow [facility] CASKET ASSEMBLER Associated attestation - Adis Guajardo MD - 11/08/2023 8:30 PM WOOD CASKET ASSEMBLER ATTENDING ATTESTATION Date of service: 11/08/2023 I personally interviewed and examined Selvin Mckeon on rounds with the resident on 11/08/2023. I agree with the findings and plan of care as documented by the resident. In addition, I note: C2D6 of HiDAC for AML in CR1. Chemotherapy is complete. Patient is stable for discharge. She will follow up Dr. Stafford. Adis Guajardo MD, PhD Hematology/Oncology * Flor Upton RN - 11/08/2023 2:43 AM CST Problem: Symptom management Goal: Symptoms of nausea will be minimized Outcome: Progressing Goal: Symptoms of stomatitis will be minimized Outcome: Progressing Problem: Protective Precautions Goal: Patient will remain free of Nosocomial Infections Outcome: Progressing Problem: Bleeding Precautions Goal: Excessive bleeding will be minimized Outcome: Progressing Goal: Precautionary measures taken to prevent bleeding Outcome: Progressing Problem: Potential for Central Venous Catheter Infection Goal: Signs and Symptoms of Central Venous Catheter Infection are Avoided Outcome: Progressing Problem: Potential for Central Venous Catheter Occlusion Goal: Central Venous Catheter Occlusion is Avoided Outcome: Progressing CASKET ASSEMBLER * Tram Carrillo RN - 11/07/2023 6:31 PM CST Problem: Symptom management Goal: Symptoms of nausea will be minimized Outcome: Progressing Goal: Symptoms of stomatitis will be minimized Outcome: Progressing Problem: Protective Precautions Goal: Patient will remain free of Nosocomial Infections Outcome: Progressing Problem: Bleeding Precautions Goal: Excessive bleeding will be minimized Outcome: Progressing Goal: Precautionary measures taken to prevent bleeding Outcome: Progressing Problem: Potential for Central Venous Catheter Infection Goal: Signs and Symptoms of Central Venous Catheter Infection are Avoided Outcome: Progressing Problem: Potential for Central Venous Catheter Occlusion Goal: Central Venous Catheter Occlusion is Avoided Outcome: Progressing CASKET ASSEMBLER * Justin Moon RN - 11/07/2023 3:08 PM CST Care Coordination Progress Note Anticipated level of care at discharge: Home: Anticipated level of care provider: None: Anticipated Discharge Date: 11/08/23: Discharge Plan: Return home pending completion of chemo. Scheduled infusions due to complete near midnight 11/07. Orientation Level: Oriented X4: Family Support (Name and Phone): Extended Emergency Contact Information Primary Emergency Contact: tonia fernández Mobile Relation: Significant other Secondary Emergency Contact: French Rosenthal Mobile Relation: Friend Belt Notcher needed? No Transportation at Discharge: Family: READMISSION RISK SCORE is 23 at 3:08 PM 11/07/2023.: Name: Justin Moon RN [phone] CASKET ASSEMBLER * Gaurav Moyer - 11/07/2023 12:51 PM CST Music Therapy Progress Note Start Time: 950 End Time: 1015 Music Therapy Goals: Increase relaxation and Increase meaningful social interaction Intervention Provided: Provide familiar / significant music, Utilized iso- principle and Provide opportunities for social interaction Therapy Type: Individual Therapy Patient Response: Appropriate Affect: Mood, appropriate Treatment Modality: Music Therapy Music Therapist Gaurav Moyer visited patient in [facility] room. Patient was observed sitting up in chair, alert and oriented. During interventions, Patient sang, made eye contact, smiled, and moved in time with the music. At conclusion of session, no nonverbal indicators of distress observed. Gaurav Moyer, ERLINDA, MT-BC 11/07/2023 12:51 PM CASKET ASSEMBLER * Aakash Pierson MD - 11/07/2023 12:35 PM CST INTERNAL MEDICINE PROGRESS NOTE Patient: Selvin Mckeon (:1985) Admit Date: 11/03/2023. Subjective Patient was seen and examined at bedside, no active complaints, eating and drinking fine. Physical Exam BP 128/90 Pulse 65 Temp 97.9 ??F (36.6 ??C) (Oral) Resp 19 Ht 1.575 m (5' 2.01 ) Wt 112.7kg (248 lb 7.3 oz) SpO2 100% Intake/Output Summary (Last 24 hours) at 11/07/2023 1235 Last data filed at 11/07/2023 1026 Gross per 24 hour Intake 950 ml Output 3125 ml Net -2175 ml GEN Not in acute distress Pulm No wheezing, no crackles, No rhonchi Cardio No murmur, S1, S2 GI Abdomen soft, not distended, no tenderness, Bowel sounds present EXT +1 legs edema ROBERTO No loss of sensations, no B/L weakness, Speech intact Data Review Labs CBC Recent Labs Component Name 11/06/23200711/05/23225611/04/232106 WBC 3.5* 4.2 5.7 HGB 8.1* 7.0* 7.6* HCT 23.7* 20.3* 22.1* MCV 84.9 85.3 83.7 CMP Recent Labs Component Name 11/06/23200711/05/23225611/04/23 2107 NA 138 140 141 CL 108* 110* 111* CO2 24 22 CREATININE 0.64 0.57 0.59 BUN 15 14 15 ALKPHOS 62 66 72 ALT 27 29 33 AST 15 16 15 ABG No results for input(s): PHART , PO2ART , OIU4ADL , XLY9UMQ in the last 36304 hours. Invalid input(s): J8QNCYS LFTs Recent Labs Component Name 11/06/232007 ALT 27 AST 15 ALKPHOS 62 TBILI 0.6 COAGs Recent Labs Component Name 09/13/23205109/12/23204509/11/232001 PT 13.1 13.6 14.4 INR 1.0 1.1 1.2 LIPIDs No results for input(s): CHOL , HDL , LDLCALC , TRIG , CHOLHDL in the last 89934 hours. CARDIAC No results for input(s): CKTOTAL , CKMB , TROPONINI in the last 66699 hours. 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 ?? Acute problems: #AML #Normocytic anemia #Thrombocytopenia Plan: -Heme/onc following, appreciate recs Plan for last dose HiDAC today 11/07, then likely discharge 11/08 from Oncology perspective -Continue home posaconazole 300 mg daily -Continue home valacyclovir 500 mg BID -Start levofloxacin for ANC < 500 Anemia She required 1 unit of blood transfusion in Oncology Clinic, hemoglobin 7 again, will be given 1 more unit of blood transfusion Thrombocytopenia Secondary to chemo, continue to monitor Transfuse if platelet count less than 30 K due to small SAH, vaginal bleeding, retinal hemorrhages Hypernatremia-resolved now Code: Full Diet: DIET REGULAR DVT PPx: SCDs Access: PIV PT/OT: Pending Dispo: Pending medical stabilization. Discharge home tomorrow Aakash Pierson MD Promotion Officer Internal Medicine 11/07/2023 12:35 PM CASKET ASSEMBLER * Gaurav Badillo DO - 11/07/2023 12:28 PM CST Images from the original note were not included. 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 Hem/Onc consultation requested for above. See above for detailed hematology/oncology history. She tolerated cycle 1 well. She had some nausea/diarrhea but resolved and has not recurred since discharge. She denied any vision complaint, headaches, CP, SOB, abdominal pain or other symptoms. She received 1 unit pRBC in clinic prior to admission for Hgb 6.8. She received first dose of cycle 2 HiDAC on 11/03. Interval history - Tolerating HiDAC well. Today is C2D5. No acute complaint. Past Medical & Surgical History Patient Active Problem List Diagnosis ??? Hypernatremia ??? Hypophosphatemia ??? Anemia ??? Vaginal bleeding ??? IIH (idiopathic intracranial hypertension) ??? Acute hypoxic respiratory failure (CMS-HCC) ??? Pulmonary edema ??? Pancytopenia (CMS-HCC) ??? Tonsillitis ??? 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 NEGATIVE PAST MEDICAL HISTORY - SEE PROBLEM LIST Past Surgical History: Procedure Laterality Date ??? Section ??? Cholecystectomy ??? KIDNEY STONES, REMOVAL Past Oncology History Cancer Staging No matching staging information was found for the patient. Oncology History Acute myeloid leukemia in remission (CMS-HCC) 09/03/2023 Initial Diagnosis Acute leukemia of unspecified [...] prevent vision loss. Active Treatment Days for Selvin Mckeon (until 11/08/2023) 11/06/2023 ONCOLOGY TREATMENT: IP AML CONSOLIDATION - AGE <60 (HIGH DOSE CYTARABINE)(SANDHU HIDAC) Day 5, Cycle 2 (Started) Pre-Medications: ondansetron (Zofran) injection 8 mg, dexAMETHasone (Decadron) injection 8 mg Chemotherapy: cytarabine (Cytosar) 6,700 mg in 0.9% NaCl IV 597 mL infusion Social History Social History Tobacco Use ??? Smoking status: Former Packs/day: 1 Types: Cigarettes Start date: 2004 Quit date: 2010 Years since quittin.1 ??? Smokeless tobacco: Never Substance Use Topics ??? Alcohol use: Yes Comment: occasional Family History Family History Family history unknown: Yes Medications SCHEDULED MEDICATIONS: 0.9% NaCl injection 3 mL, Intracatheter, q8h cytarabine (Cytosar) 6,700 mg in 0.9% NaCl IV 597 mL infusion, Intravenous, q12h dexAMETHasone (Decadron) 0.1 % ophthalmic suspension 2 drop, Each Eye, 4X/DAY famotidine (Pepcid) tablet 20 mg, Oral, BID ondansetron (Zofran) injection 8 mg, Intravenous, q12h posaconazole (Noxafil) tablet 300 mg, Oral, QDAY WITH DINNER potassium chloride ER (Klor-Con M) tablet 20 mEq, Oral, QDAY sodium - potassium phosphates (K Phos Neutral) tablet 1 tablet, Oral, BID valACYclovir (Valtrex) tablet 500 mg, Oral, BID [COMPLETED] dexAMETHasone (Decadron) injection 8 mg, Intravenous, Once [START ON 11/10/2023] levoFLOXacin (Levaquin) tablet 500 mg, Oral, QAM CONTINUOUS MEDICATIONS: PRN MEDICATIONS: 0.9% NaCl injection 1-10 mL, Intracatheter, PRN artificial tears ophthalmic solution 1 drop, Each Eye, TID PRN dicyclomine (Bentyl) tablet 20 mg, Oral, TID PRN ondansetron (disintegrating) (Zofran ODT) tablet 8 mg, Oral, BID PRN ondansetron (Zofran) injection 8 mg, Intravenous, BID PRN prochlorperazine (Compazine) injection 5 mg, Intravenous, q4h PRN prochlorperazine (Compazine) tablet 10 mg, Oral, q4h PRN Allergies No Known Allergies OBJECTIVE Physical Exam Vitals: 11/06/23 2213 11/07/23 0628 11/07/23 1026 11/07/23 1111 BP: 127/92 146/87 (!) 147/100 128/90 Pulse: 77 86 81 65 Resp: 16 19 Temp: 97.5 ??F (36.4 ??C) 97.9 ??F (36.6 ??C) 97.8 ??F (36.6 ??C) 97.9 ??F (36.6 ??C) SpO2: 98% 100% 98% 100% Weight: Height: Wt Readings from Last 3 Encounters: 11/06/23 112.7 kg (248 lb 7.3 oz) 11/03/23 112.8 kg (248 lb 9.6 oz) 10/29/23 112.1 kg (247 lb 3.2 oz) ECO General: Well-developed. No acute distress. Sitting on sofa working Head: Normocephalic, atraumatic. Eyes: No scleral icterus. [...] above in Hematology & Oncology History ASSESSMENT Selvin Mckeon is a 38 year old female with Acute Myeloid Leukemia presenting for Cycle 2 consolidation with HiDAC. Hem/Onc consultation requested for chemotherapy. 1. 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 No more IT treatment planned. 2. Small volume SAH in right central sulcus - Noted on CT 10/01/23 - NSGY f/u on 11/19/23 - PLT goal >30k 3. Elevated ICP - noted during hospitalization in September, opening pressure on LP - Concern for IIH - Discharged on diamox 4. Vaginal bleeding - endorses mild spotting - medroxyprogesterone discontinued due to c/f IIH - Monthly depo shots (next dose end of October) - PLT goal >30k 5. 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 She also has levofloxacin at home. -- If neutropenia (ANC <500), please start levofloxacin - Continue dexamethasone eye drops for chemical conjunctivitis ppx while on high-dose cytarabine. - Please transfuse Plt to maintain count >30k at this time due to small SAH, vaginal bleeding, retinal hemorrhages General transfusion parameters (leukoreduced and irradiated blood [...] to contact hem/onc consult fellow via the dump operator or AMION if any questions or clarifications. Patient seen and discussed with Heme/Onc attending. Gaurav Badillo DO Internal Medicine PGY3 CASKET ASSEMBLER Associated attestation - Doris Avilez MD - 11/07/2023 1:56 PM WOOD CASKET ASSEMBLER Attending Physician Supervisory Note I personally interviewed and examined the patient with the housekeeper manager. I confirm the findings and agree with the assessment and plan. Doris Avilez MD * Christiane Marte RPhT - 11/07/2023 9:30 AM CST MEDICATION TO BEDSIDE DELIVERY: COMPLETE Medication to Bedside delivery was completed for Selvin Mckeon. ??? A total of 2 prescriptions were delivered to the patient for discharge. ??? Medications were given to PATIENT (SELVIN MCKEON) ??? This delivery included a controlled substance: NO ??? This delivery included medication that should be stored in the fridge: NO Thank you for allowing the outpatient pharmacy to participate in the care of Selvin Mckeon. If you have any questions, please contact the outpatient pharmacy at [phone]. Christiane Marte [facility] at [address], [address] Floor [place], [place] [address] Hours of Operation Friday - Friday: 8:00am to 6:00pm Friday: 9:00am to 1:00pm Epic: [facility], [facility] *Ensure the patient and clinic's nearby ZIP codes box is unchecked* CASKET ASSEMBLER * Flor Upton RN - 11/07/2023 12:53 AM CST Problem: Symptom management Goal: Symptoms of nausea will be minimized Outcome: Progressing Goal: Symptoms of stomatitis will be minimized Outcome: Progressing Problem: Protective Precautions Goal: Patient will remain free of Nosocomial Infections Outcome: Progressing Problem: Bleeding Precautions Goal: Excessive bleeding will be minimized Outcome: Progressing Goal: Precautionary measures taken to prevent bleeding Outcome: Progressing Problem: Potential for Central Venous Catheter Infection Goal: Signs and Symptoms of Central Venous Catheter Infection are Avoided Outcome: Progressing Problem: Potential for Central Venous Catheter Occlusion Goal: Central Venous Catheter Occlusion is Avoided Outcome: Progressing CASKET ASSEMBLER * Gaurav Moyer - 11/06/2023 1:33 PM CST Music Therapy Progress Note Start Time: 1305 End Time: 1335 Music Therapy Goals: Increase relaxation and Increase meaningful social interaction Intervention Provided: Provide familiar / significant music and Provide opportunities for social interaction Therapy Type: Individual Therapy Patient Response: Appropriate Affect: Mood, appropriate Treatment Modality: Music Therapy Music Therapist Gaurav Moyer visited patient in [facility] room. Patient was observed sitting up in chair, alert and oriented. During interventions, Patient smiled, sang, mouthed familiar lyrics, made eye contact, and moved in time with the music. Patient engaged in reminiscence after each intervention. At conclusion of session, no nonverbal indicators of distress observed. Gaurav Moyer, MMT, MT-BC 11/06/2023 1:33 PM CASKET ASSEMBLER * Aakash Pierson MD - 11/06/2023 12:53 PM CST INTERNAL MEDICINE PROGRESS NOTE Patient: Selvin Mckeon (:1985) Admit Date: 11/03/2023. Subjective Patient was seen and examined at bedside, no active complaints, she tells that she has mild bilateral lower extremity edema which she developed after chemo. Physical Exam BP 131/82 Pulse 98 Temp 97.2 ??F (36.2 ??C) (Oral) Resp 18 Ht 1.575 m (5' 2.01 ) Wt 112.7kg (248 lb 7.3 oz) SpO2 100% Intake/Output Summary (Last 24 hours) at 11/06/2023 1253 Last data filed at 11/06/2023 0800 Gross per 24 hour Intake 2706.64 ml Output 2900 ml Net -193.36 ml GEN Not in acute distress Pulm No wheezing, no crackles, No rhonchi Cardio No murmur, S1, S2 GI Abdomen soft, not distended, no tenderness, Bowel sounds present EXT +1 legs edema ROBERTO No loss of sensations, no B/L weakness, Speech intact Data Review Labs CBC Recent Labs Component Name 11/05/23225611/04/23210611/03/23 2305 WBC 4.2 5.7 4.2 HGB 7.0* 7.6* 7.8* HCT 20.3* 22.1* 22.3* MCV 85.3 83.7 83.8 CMP Recent Labs Component Name 11/05/23225611/04/23210611/03/23 2305 NA 140 141 149* CL 110* 111* 111* CO2 24 22 25 CREATININE 0.57 0.59 0.54* BUN 14 15 9 ALKPHOS 66 72 67 ALT 29 33 39 AST 16 15 22 ABG No results for input(s): PHART , PO2ART , SAS3TXF , TQW5MCK in the last 03227 hours. Invalid input(s): M7USWIJ LFTs Recent Labs Component Name 11/05/232256 ALT 29 AST 16 ALKPHOS 66 TBILI 0.4 COAGs Recent Labs Component Name 09/13/23205109/12/23204509/11/232001 PT 13.1 13.6 14.4 INR 1.0 1.1 1.2 LIPIDs No results for input(s): CHOL , HDL , LDLCALC , TRIG , CHOLHDL in the last 23987 hours. CARDIAC No results for input(s): CKTOTAL , CKMB , TROPONINI in the last 11594 hours. Invalid input(s): CKMBINDEX DIABETES Recent Labs Component Name 11/05/232256 CREATININE 0.57 Microbiology Reviewed in chart Radiology Reviewed in chart Assessment & Plan Active Problems: Acute myeloid leukemia in remission (CMS-HCC) Pancytopenia (CMS-HCC) Anemia Hypernatremia Hypophosphatemia Selvin Mckeon is a 38 year old female with PMH of AML diagnosed in 08/2023 who was directly admitted for chemotherapy. ?? Acute problems: #AML #Normocytic anemia #Thrombocytopenia Plan: -Heme/onc following, appreciate recs Plan for last dose HiDAC tomorrow 11/07, then likely discharge 11/08 from Oncology perspective -Continue home posaconazole 300 mg daily -Continue home valacyclovir 500 mg BID -Start levofloxacin for ANC < 500 Anemia She required 1 unit of blood transfusion in Oncology Clinic, hemoglobin 7 again, will be given 1 more unit of blood transfusion Thrombocytopenia Secondary to chemo, continue to monitor Transfuse if platelet count less than 30 K due to small SAH, vaginal bleeding, retinal hemorrhages Hypernatremia-resolved now Code: Full Diet: DIET REGULAR DVT PPx: SCDs Access: PIV PT/OT: Pending Dispo: Pending medical stabilization. Aakash Pierson MD Promotion Officer Internal Medicine 11/06/2023 12:53 PM CASKET ASSEMBLER * Doris Avilez MD - 11/06/2023 12:42 PM CST Images from the original note were not included. HEMATOLOGY/ONCOLOGY INPATIENT PROGRESS NOTE Name: Selvin Mckeon Age: [id number] year old Date of : 1985 Date of Service: 11/06/2023 Reason for Consult: C2 HiDAC HEMATOLOGY & ONCOLOGY HISTORY Principal Diagnosis: AML, NPM-1 mutation, favorable risk Current Therapy: HiDAC Prior Hematology/Oncology History: 09/02/2023: Bone marrow biopsy at [facility] which revealed 78% blasts likely AML. 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 Hem/Onc consultation requested for above. See above for detailed hematology/oncology history. She tolerated cycle 1 well. She had some nausea/diarrhea but resolved and has not recurred since discharge. She denied any vision complaint, headaches, CP, SOB, abdominal pain or other symptoms. She received 1 unit pRBC in clinic prior to admission for Hgb 6.8. She received first dose of cycle 2 HiDAC on 11/03. Interval history - Tolerating HiDAC well. Today is C2D4. No acute complaint. Past Medical & Surgical History Patient Active Problem List Diagnosis ??? Hypernatremia ??? Hypophosphatemia ??? Anemia ??? Vaginal bleeding ??? IIH (idiopathic intracranial hypertension) ??? Acute hypoxic respiratory failure (CMS-HCC) ??? Pulmonary edema ??? Pancytopenia (CMS-HCC) ??? Tonsillitis ??? 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 NEGATIVE PAST MEDICAL HISTORY - SEE PROBLEM LIST Past Surgical History: Procedure Laterality Date ??? Section ??? Cholecystectomy ??? KIDNEY STONES, REMOVAL Past Oncology History Cancer Staging No matching staging information was found for the patient. Oncology History Acute myeloid leukemia in remission (CMS-HCC) 09/03/2023 Initial Diagnosis Acute leukemia of unspecified [...] prevent vision loss. Active Treatment Days for Selvin Mckeon (until 11/07/2023) 11/07/2023 ONCOLOGY TREATMENT: IP AML CONSOLIDATION - AGE <60 (HIGH DOSE CYTARABINE)(SANDHU HIDAC) Day 5, Cycle 2 (Planned) Pre-Medications: ondansetron (Zofran) injection 8 mg, dexAMETHasone (Decadron) injection 8 mg Chemotherapy: cytarabine (Cytosar) 6,700 mg in 0.9% NaCl IV 567 mL infusion Social History Social History Tobacco Use ??? Smoking status: Former Packs/day: 1 Types: Cigarettes Start date: 2004 Quit date: 2010 Years since quittin.1 ??? Smokeless tobacco: Never Substance Use Topics ??? Alcohol use: Yes Comment: occasional Family History Family History Family history unknown: Yes Medications SCHEDULED MEDICATIONS: 0.9% NaCl injection 3 mL, Intracatheter, q8h dexAMETHasone (Decadron) 0.1 % ophthalmic suspension 2 drop, Each Eye, 4X/DAY famotidine (Pepcid) tablet 20 mg, Oral, BID posaconazole (Noxafil) tablet 300 mg, Oral, QDAY WITH DINNER potassium chloride ER (Klor-Con M) tablet 20 mEq, Oral, QDAY sodium - potassium phosphates (K Phos Neutral) tablet 1 tablet, Oral, BID valACYclovir (Valtrex) tablet 500 mg, Oral, BID [COMPLETED] cytarabine (Cytosar) 6,700 mg in 0.9% NaCl IV 597 mL infusion, Intravenous, q12h [COMPLETED] ondansetron (Zofran) injection 8 mg, Intravenous, q12h [COMPLETED] potassium phosphate 15 mmol in 250 mL bolus, Intravenous, Once [START ON 11/10/2023] levoFLOXacin (Levaquin) tablet 500 mg, Oral, QAM CONTINUOUS MEDICATIONS: PRN MEDICATIONS: 0.9% NaCl infusion rate and volume, Intravenous, Once PRN 0.9% NaCl injection 1-10 mL, Intracatheter, PRN artificial tears ophthalmic solution 1 drop, Each Eye, TID PRN dicyclomine (Bentyl) tablet 20 mg, Oral, TID PRN ondansetron (disintegrating) (Zofran ODT) tablet 8 mg, Oral, BID PRN ondansetron (Zofran) injection 8 mg, Intravenous, BID PRN prochlorperazine (Compazine) injection 5 mg, Intravenous, q4h PRN prochlorperazine (Compazine) tablet 10 mg, Oral, q4h PRN Allergies No Known Allergies OBJECTIVE Physical Exam Vitals: 11/05/23 1418 11/05/23 2000 11/06/23 0627 11/06/23 0834 BP: 147/99 130/88 115/98 131/82 Pulse: 90 85 91 98 Resp: Temp: 97.5 ??F (36.4 ??C) 97.2 ??F (36.2 ??C) 97.2 ??F (36.2 ??C) 97.2 ??F (36.2 ??C) SpO2: 99% 99% 98% 100% Weight: Height: Wt Readings from Last 3 Encounters: 11/03/23 112.7 kg (248 lb 7.3 oz) 11/03/23 112.8 kg (248 lb 9.6 oz) 10/29/23 112.1 kg (247 lb 3.2 oz) ECO General: Well-developed. No acute distress. Sitting on sofa working on laptop. Head: Normocephalic, atraumatic. Eyes: No scleral icterus. [...] above in Hematology & Oncology History ASSESSMENT Selvin Mckeon is a 38 year old female with Acute Myeloid Leukemia presenting for Cycle 2 consolidation with HiDAC. Hem/Onc consultation requested for chemotherapy. 1. 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 No more IT treatment planned. 2. Small volume SAH in right central sulcus - Noted on CT 10/01/23 - NSGY f/u on 11/19/23 - PLT goal >30k 3. Elevated ICP - noted during hospitalization in September, opening pressure on LP 31 - Concern for IIH - Discharged on diamox 4. Vaginal bleeding - endorses mild spotting - medroxyprogesterone discontinued due to c/f IIH - Monthly depo shots (next dose end of October) - PLT goal >30k 5. 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 She also has levofloxacin at home. -- If neutropenia (ANC <500), please start levofloxacin - Continue dexamethasone eye drops for chemical conjunctivitis ppx while on high-dose cytarabine. - Please transfuse Plt to maintain count >30k at this time due to small SAH, vaginal bleeding, retinal hemorrhages General transfusion parameters (leukoreduced and irradiated blood [...] to contact hem/onc consult fellow via the dump operator or AMION if any questions or clarifications. Patient seen and discussed with Heme/Onc attending. Gaurav Badillo DO Internal Medicine PGY3 Attending Physician Supervisory Note I personally interviewed and examined the patient with the housekeeper manager. I confirm the findings and agree with the assessment and plan. Doris Avilez MD CASKET ASSEMBLER * Lynda Shaver Nurse Extern - 11/06/2023 10:48 AM CST Problem: Symptom management Goal: Symptoms of nausea will be minimized Outcome: Progressing Goal: Symptoms of stomatitis will be minimized Outcome: Progressing Problem: Protective Precautions Goal: Patient will remain free of Nosocomial Infections Outcome: Progressing Problem: Bleeding Precautions Goal: Excessive bleeding will be minimized Outcome: Progressing Goal: Precautionary measures taken to prevent bleeding Outcome: Progressing Problem: Potential for Central Venous Catheter Infection Goal: Signs and Symptoms of Central Venous Catheter Infection are Avoided Outcome: Progressing Problem: Potential for Central Venous Catheter Occlusion Goal: Central Venous Catheter Occlusion is Avoided Outcome: Progressing * Gaurav Moyer - 11/05/2023 3:09 PM CST Music Therapy Progress Note Start Time: 1345 End Time: 1415 Music Therapy Goals: Increase relaxation and Increase meaningful social interaction Intervention Provided: Provide familiar / significant music, Utilized iso- principle and Provide opportunities for social interaction Therapy Type: Individual Therapy Patient Response: Appropriate Affect: Happy and Mood, appropriate Treatment Modality: Music Therapy Music Therapist Gaurav Moyer and medical students visited patient in [facility] room. Patient was observed sitting up in chair, alert and oriented. During interventions, Patient smiled, sang, moved in time with the music, and made eye contact. Patient engaged in reminiscenceand pleasant conversation after each intervention. At conclusion of session, no nonverbal indicators of distress observed. ERLINDA Philip, MT-BC 11/05/2023 3:09 PM CASKET ASSEMBLER * Lynda Shaver Nurse Extern - 11/05/2023 10:55 AM CST Problem: Symptom management Goal: Symptoms of nausea will be minimized Outcome: Progressing Goal: Symptoms of stomatitis will be minimized Outcome: Progressing Problem: Protective Precautions Goal: Patient will remain free of Nosocomial Infections Outcome: Progressing Problem: Bleeding Precautions Goal: Excessive bleeding will be minimized Outcome: Progressing Goal: Precautionary measures taken to prevent bleeding Outcome: Progressing Problem: Potential for Central Venous Catheter Infection Goal: Signs and Symptoms of Central Venous Catheter Infection are Avoided Outcome: Progressing Problem: Potential for Central Venous Catheter Occlusion Goal: Central Venous Catheter Occlusion is Avoided Outcome: Progressing * Aakash Pierson MD - 11/05/2023 10:43 AM CST INTERNAL MEDICINE PROGRESS NOTE Patient: Selvin Mckeon (:1985) Admit Date: 11/03/2023. Subjective Patient was seen and examined at bedside, no active complaints, she tells that she has mild bilateral lower extremity edema which she developed after chemo. Physical Exam BP 139/91 (BP Cuff Size: A) Pulse 109 Temp 97.4 ??F (36.3 ??C) (Oral) Resp 20 Ht 1.575 m (5' 2.01 ) Wt 112.7 kg (248 lb 7.3 oz) SpO2 99% Intake/Output Summary (Last 24 hours) at 11/05/2023 1043 Last data filed at 11/05/2023 1027 Gross per 24 hour Intake 1950 ml Output 3395 ml Net -1445 ml GEN Not in acute distress Pulm No wheezing, no crackles, No rhonchi Cardio No murmur, S1, S2 GI Abdomen soft, not distended, no tenderness, Bowel sounds present EXT +1 legs edema ROBERTO No loss of sensations, no B/L weakness, Speech intact Data Review Labs CBC Recent Labs Component Name 11/04/23210611/03/23230411/03/23 0956 WBC 5.7 4.2 4.3 HGB 7.6* 7.8* 6.8* HCT 22.1* 22.3* 19.3* MCV 83.7 83.8 84.3 CMP Recent Labs Component Name 11/04/23210611/03/23230411/03/23 0956 NA 141 149* 143 CL 111* 111* 109* CO2 22 25 25 CREATININE 0.59 0.54* 0.55* BUN 15 9 6* ALKPHOS 72 67 68 ALT 33 39 43 AST 15 22 23 ABG No results for input(s): PHART , PO2ART , MIE5FKB , TXL9WBA in the last 84409 hours. Invalid input(s): K2KMHYL LFTs Recent Labs Component Name 11/04/232106 ALT 33 AST 15 ALKPHOS 72 TBILI 0.6 COAGs Recent Labs Component Name 09/13/23205109/12/23204509/11/232001 PT 13.1 13.6 14.4 INR 1.0 1.1 1.2 LIPIDs No results for input(s): CHOL , HDL , LDLCALC , TRIG , CHOLHDL in the last 60242 hours. CARDIAC No results for input(s): CKTOTAL , CKMB , TROPONINI in the last 94128 hours. Invalid input(s): CKMBINDEX DIABETES Recent Labs Component Name 11/04/232106 CREATININE 0.59 Microbiology Reviewed in chart Radiology Reviewed in chart Assessment & Plan Active Problems: Acute myeloid leukemia in remission (CMS-HCC) Pancytopenia (CMS-HCC) Anemia Hypernatremia Hypophosphatemia Selvin Kineke is a 38 year old female with PMH of AML diagnosed in 08/2023 who was directly admitted for chemotherapy. ?? Acute problems: #AML #Normocytic anemia #Thrombocytopenia -Presents for cycle 2 of HiDAC Plan: -Heme/onc following, appreciate recs -HiDAC -Continue home posaconazole 300 mg daily -Continue home valacyclovir 500 mg BID -Start levofloxacin for ANC < 500 Anemia She required 1 unit of blood transfusion in Oncology Clinic, continue to monitor H&H, no activebleeding Thrombocytopenia Secondary to chemo, continue to monitor Hypernatremia-resolved now Code: Full Diet: DIET REGULAR DVT PPx: SCDs Access: PIV PT/OT: Pending Dispo: Pending medical stabilization. Aakash Pierson MD Promotion Officer Internal Medicine 11/05/2023 10:43 AM CASKET ASSEMBLER * Gaurav Badillo DO - 11/05/2023 9:31 AM CST Images from the original note were not included. HEMATOLOGY/ONCOLOGY INPATIENT PROGRESS NOTE Name: Selvin Mckeon Age: [age] year old Date of : 1985 Date of Service: 11/05/2023 Reason for Consult: C2 HiDAC HEMATOLOGY & ONCOLOGY HISTORY Principal Diagnosis: AML, NPM-1 mutation, favorable risk Current Therapy: HiDAC Prior Hematology/Oncology History: 09/02/2023: Bone marrow biopsy at [facility] which revealed 78% blasts likely AML. 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 Hem/Onc consultation requested for above. See above for detailed hematology/oncology history. She tolerated cycle 1 well. She had some nausea/diarrhea but resolved and has not recurred since discharge. She denied any vision complaint, headaches, CP, SOB, abdominal pain or other symptoms. She received 1 unit pRBC in clinic prior to admission for Hgb 6.8. She received first dose of cycle 2 HiDAC on 11/03. Past Medical & Surgical History Patient Active Problem List Diagnosis ??? Anemia ??? Vaginal bleeding ??? IIH (idiopathic intracranial hypertension) ??? Acute hypoxic respiratory failure ([facility]-HCC) ??? Pulmonary edema ??? Pancytopenia (CMS-HCC) ??? Tonsillitis ??? Acute myeloid leukemia in remission ([facility]) Past Medical History: Diagnosis Date ??? NEGATIVE PAST MEDICAL HISTORY - SEE PROBLEM LIST Past Surgical History: Procedure Laterality Date ??? Section ??? Cholecystectomy ??? KIDNEY STONES, REMOVAL Past Oncology History Cancer Staging No matching staging information was found for the patient. Oncology History Acute myeloid leukemia in remission ([facility]) 09/03/2023 Initial Diagnosis 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 ([facility]) 09/06/2023 - Chemotherapy cytarabine (Cytosar) 460 [...] prevent vision loss. Active Treatment Days for Selvin Mckeon (until 11/06/2023) There are no remaining days before 11/06/2023. Social History Social History Tobacco Use ??? Smoking status: Former Packs/day: 1 Types: Cigarettes Start date: 2004 Quit date: 2010 Years since quittin.1 ??? Smokeless tobacco: Never Substance Use Topics ??? Alcohol use: Yes Comment: occasional Family History Family History Family history unknown: Yes Medications SCHEDULED MEDICATIONS: 0.9% NaCl injection 3 mL, Intracatheter, q8h cytarabine (Cytosar) 6,700 mg in 0.9% NaCl IV 597 mL infusion, Intravenous, q12h dexAMETHasone (Decadron) 0.1 % ophthalmic suspension 2 drop, Each Eye, 4X/DAY famotidine (Pepcid) tablet 20 mg, Oral, BID ondansetron (Zofran) injection 8 mg, Intravenous, q12h posaconazole (Noxafil) tablet 300 mg, Oral, QDAY WITH DINNER potassium chloride ER (Klor-Con M) tablet 20 mEq, Oral, QDAY potassium phosphate 15 mmol in 250 mL bolus, Intravenous, Once valACYclovir (Valtrex) tablet 500 mg, Oral, BID [COMPLETED] dexAMETHasone (Decadron) injection 8 mg, Intravenous, Once [START ON 11/10/2023] levoFLOXacin (Levaquin) tablet 500 mg, Oral, QAM CONTINUOUS MEDICATIONS: PRN MEDICATIONS: 0.9% NaCl injection 1-10 mL, Intracatheter, PRN artificial tears ophthalmic solution 1 drop, Each Eye, TID PRN dicyclomine (Bentyl) tablet 20 mg, Oral, TID PRN ondansetron (disintegrating) (Zofran ODT) tablet 8 mg, Oral, BID PRN ondansetron (Zofran) injection 8 mg, Intravenous, BID PRN prochlorperazine (Compazine) injection 5 mg, Intravenous, q4h PRN prochlorperazine (Compazine) tablet 10 mg, Oral, q4h PRN Allergies No Known Allergies OBJECTIVE Physical Exam Vitals: 11/04/23 0559 11/04/23 1451 11/04/23 1953 11/05/23 0615 BP: 126/78 134/78 140/95 139/91 Pulse: 103 (!) 115 108 109 Resp: Temp: 97.3 ??F (36.3 ??C) 98 ??F (36.7 ??C) 98.1 ??F (36.7 ??C) 97.4 ??F (36.3 ??C) SpO2: 98% 98% 99% 99% Weight: Height: Wt Readings from Last 3 Encounters: 11/03/23 112.7 kg (248 lb 7.3 oz) 11/03/23 112.8 kg (248 lb 9.6 oz) 10/29/23 112.1 kg (247 lb 3.2 oz) ECO General: Well-developed. No acute distress. Sitting on sofa working on laptop. Head: Normocephalic, atraumatic. Eyes: No scleral icterus. [...] above in Hematology & Oncology History ASSESSMENT Selvin Mckeon is a 38 year old female with Acute Myeloid Leukemia presenting for Cycle 2 consolidation with HiDAC. Hem/Onc consultation requested for chemotherapy. 1. 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 No more IT treatment planned. 2. Small volume SAH in right central sulcus - Noted on CT 10/01/23 - NSGY f/u on 11/19/23 - PLT goal >30k 3. Elevated ICP - noted during hospitalization in September, opening pressure on LP 31 - Concern for IIH - Discharged on diamox 4. Vaginal bleeding - endorses mild spotting - medroxyprogesterone discontinued due to c/f IIH - Monthly depo shots (next dose end of October) - PLT goal >30k 5. 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 - Please transfuse Plt to maintain count >30k at this time due to small SAH, vaginal bleeding, retinal hemorrhages General transfusion parameters (leukoreduced and irradiated blood [...] to contact hem/onc consult fellow via the dump operator or AMION if any questions or clarifications. Patient seen and discussed with Heme/Onc attending. Gaurav Badillo DO Internal Medicine PGY3 CASKET ASSEMBLER Associated attestation - Doris Avilez MD - 11/07/2023 1:55 PM WOOD CASKET ASSEMBLER Attending Physician Supervisory Note I personally interviewed and examined the patient with the housekeeper manager. I confirm the findings and agree with the assessment and plan. Doris Avilez MD * Gui Edwards RN - 11/04/2023 4:45 PM CST Problem: Symptom management Goal: Symptoms of nausea will be minimized Outcome: Progressing Goal: Symptoms of stomatitis will be minimized Outcome: Progressing CASKET ASSEMBLER * Aakash Pierson MD - 11/04/2023 2:17 PM CST INTERNAL MEDICINE PROGRESS NOTE Patient: Selvin Mckeon (:1985) Admit Date: 11/03/2023. Subjective Patient was seen and examined at bedside, no active complaints, she tells that she has mild bilateral lower extremity edema which she developed after chemo. Physical Exam BP 126/78 (BP Cuff Size: A) Pulse 103 Temp 97.3 ??F (36.3 ??C) (Oral) Resp 18 Ht 1.575 m (5' 2.01 ) Wt 112.7 kg (248 lb 7.3 oz) SpO2 98% Intake/Output Summary (Last 24 hours) at 11/04/2023 1420 Last data filed at 11/04/2023 1409 Gross per 24 hour Intake 1746.48 ml Output 3800 ml Net -2053.52 ml GEN Not in acute distress Pulm No wheezing, no crackles, No rhonchi Cardio No murmur, S1, S2 GI Abdomen soft, not distended, no tenderness, Bowel sounds present EXT +1 legs edema ROBERTO No loss of sensations, no B/L weakness, Speech intact Data Review Labs CBC Recent Labs Component Name 11/03/23230411/03/23 0956 10/29/23 1048 WBC 4.2 4.3 3.2* HGB 7.8* 6.8* 7.4* HCT 22.3* 19.3* 20.2* MCV 83.8 84.3 80.5 CMP Recent Labs Component Name 11/03/23230411/03/23 0956 10/29/23 1048 NA 149* 143 144 CL 111* 109* 111* CO2 25 25 24 CREATININE 0.54* 0.55* 0.54* BUN 9 6* 7 ALKPHOS 67 68 73 ALT 39 43 31 AST 22 23 25 ABG No results for input(s): PHART , PO2ART , JTF9NJP , CPA1DBJ in the last 29003 hours. Invalid input(s): L5PGIJT LFTs Recent Labs Component Name 11/03/235 ALT 39 AST 22 ALKPHOS 67 TBILI 0.5 COAGs Recent Labs Component Name 09/13/23205109/12/23204509/11/232001 PT 13.1 13.6 14.4 INR 1.0 1.1 1.2 LIPIDs No results for input(s): CHOL , HDL , LDLCALC , TRIG , CHOLHDL in the last 42607 hours. CARDIAC No results for input(s): CKTOTAL , CKMB , TROPONINI in the last 45619 hours. Invalid input(s): CKMBINDEX DIABETES Recent Labs Component Name 11/03/232304 CREATININE 0.54* Microbiology Reviewed in chart Radiology Reviewed in chart Assessment & Plan Active Problems: Acute myeloid leukemia in remission (CMS-HCC) Pancytopenia (CMS-HCC) Anemia Selvin Mckeon is a 38 year old female with PMH of AML diagnosed in 08/2023 who was directly admitted for chemotherapy. ?? Acute problems: #AML #Normocytic anemia #Thrombocytopenia -Presents for cycle 2 of HiDAC -Admission labs notable for Hb 7.8, plt 104 Plan: -Heme/onc following, appreciate recs -HiDAC -Continue home posaconazole 300 mg daily -Continue home valacyclovir 500 mg BID -Start levofloxacin for ANC < 500 Anemia She required 1 unit of blood transfusion in Oncology Clinic, hemoglobin 7.8, continue to monitor, no active bleeding ?? Code: Full Diet: DIET REGULAR DVT PPx: SCDs Access: PIV PT/OT: Pending Dispo: Pending medical stabilization. Aakash Pierson MD Promotion Officer Internal Medicine 11/04/2023 2:20 PM CASKET ASSEMBLER * Justin Moon RN - 11/04/2023 9:58 AM CST Care Coordination Initial Assessment Anticipated Discharge Date: 11/08/23 Transportation at Discharge: Family Anticipated level of care at discharge: Home Anticipated level of care provider: None Prior to admission level of care: Home Prior to admit provider: None Patient Goals: Safe return home Plans: No discharge needs identified at this time. Consult Case Management if discharge planning needs arise. Comments: 38 year old female with PMH of AML diagnosed in 08/2023 who was directly admitted 11/03 for cycle 2 HiDAC chemotherapy. Lives with: Daughter;Significant Other Physical Limitations: None Requires Assistance With: None Preferred Pharmacy: [facility]/pharmacy #[id number] - [phone] [phone] [id number] Advance Directive: No Advance Directive Information Given: Will be offered upon admission Would you like assistance on completing and executing or revising an Advance Directive?: No READMISSION RISK SCORE is 21 at 3:07 PM 11/04/2023. Met with patient at bedside Family Support (name and phone): Extended Emergency Contact Information Primary Emergency Contact: tonia fernández Mobile Relation: Significant other Secondary Emergency Contact: French Rosenthal Mobile Relation: Friend Belt Notcher needed? No Patient or data entry representative requests care coordination reach out to family or caregiver listed above regarding discharge planning and at time of discharge? No Patient/Family provided with list of resources? No Preferred Provider / High Quality Network List given?: No Reason for provider choice: Pt. choice - Physician driven Equipment at Home: None List DME pt. requires but does not have.: None Dissolver Operator Referral: No Will continue to follow. For any questions or needs please contact: Veneer Clipper Helper Name/Phone number: Justin Moon RN [phone] CASKET ASSEMBLER documented in this encounter H&P Notes * Conor Ozuna MD - 11/03/2023 7:15 PM CST [facility] INTERNAL MEDICINE HISTORY & PHYSICAL NOTE Date of Admission: 11/03/2023 Patient: Selvin Mckeon Sex: female Age: [age] year old Date of : 1985 Code Status: Prior SUBJECTIVE Chief Complaint: AML History of Present Illness: Selvin Mckeon is a 38 year old female with PMH of AML diagnosed in 08/2023 who was directly admitted for chemotherapy. She is scheduled to receive cycle 2 of HiDAC (high-dose cytarabine). Labs were drawn in heme/onc clinic this morning and showed Hb 6.8, and patient received 1u pRBCs. Patient was admitted to medicine for further management. On admission, vital signs were stable. At bedside, patient doing well. Denies fevers, chills, nausea, vomiting, diarrhea, hematochezia. States she has tolerated previous cycle without complications. Heme/onc was consulted for management of chemotherapy. Past Medical History: Past Medical History: Diagnosis [...] of Health Financial Resource Strain: Low Risk (09/06/2023) Overall Financial Resource Strain (CARDIA) ??? Difficulty of Paying Living Expenses: Not very hard Food Insecurity: No Food Insecurity (09/06/2023) Hunger Vital Sign ??? Worried About Running Out of Food in the Last Year: Never true ??? Ran Out of Food in the Last Year: Never true Transportation Needs: No Transportation Needs (09/06/2023) PRAPARE - Transportation ??? Lack of Transportation (Medical): No ??? Lack of Transportation (Non-Medical): No Stress: No Stress Concern Present (09/06/2023) [employer] - Occupational Stress Questionnaire ??? Feeling of Stress : Only a little Housing Stability: Low Risk (09/06/2023) Housing Stability Vital Sign ??? Unable to Pay for Housing in the Last Year: No ??? Number of Places Lived in the Last Year: 1 ??? Unstable Housing in the Last Year: No Allergies: No Known Allergies Home Medications: No current facility-administered medications on file prior to encounter. Current Outpatient Medications on File Prior to Encounter Medication Sig Dispense Refill ??? acetaZOLAMIDE (Diamox) 250 MG tablet Take 2 (two) tablets by mouth 2 times daily 120 tablet 1 ??? Carboxymethylcellulose Sodium (ARTIFICIAL TEARS OP) ??? dicyclomine (Bentyl) 20 MG tablet Take 1 (one) tablet by mouth 3 times daily as needed (cramping) (Patient not taking: Reported on 10/16/2023) 30 tablet 1 ??? famotidine (Pepcid) 20 MG tablet Take 1 (one) tablet by mouth 2 times daily 60 tablet 1 ??? levoFLOXacin (Levaquin) 500 MG tablet Take 1 (one) tablet by mouth once daily 30 tablet 1 ??? medroxyPROGESTERone (Depo-Provera) 150 MG/ML vial Inject 1 mL into muscle every 84 days ??? ondansetron, disintegrating, (Zofran ODT) 8 MG tablet Take 1 (one) tablet by mouth 2 times daily as needed for Nausea/Vomiting Allow tablet to dissolve on the tongue (Patient not taking: Reportedon 10/16/2023) 30 tablet 1 ??? potassium chloride ER 10 MEQ tablet Take 2 (two) tablets by mouth once daily 30 tablet 0 ??? prochlorperazine (Compazine) 10 MG tablet Take 1 (one) tablet by mouth every 6 hours as needed for Nausea/Vomiting 30 tablet 1 ??? sodium - potassium phosphates (K Phos Neutral) 155-852-130 MG tablet Take 2 (two) tablets by mouth once daily 60 tablet 0 Current Medications: Scheduled: ??? cytarabine 3,000 mg/m2 (Treatment Plan Recorded) Intravenous q12h ??? dexAMETHasone 2 drop Each Eye 4X/DAY ??? dexAMETHasone 8 mg Intravenous Once ??? famotidine 20 mg Oral BID ??? [START ON 11/10/2023] levoFLOXacin 500 mg Oral QAM ??? ondansetron 8 mg Intravenous Once ??? valACYclovir 500 mg Oral BID Continuous: PRN: ??? ondansetron (disintegrating) ??? ondansetron ??? prochlorperazine ??? prochlorperazine Review of Systems: Review of Systems Constitutional: Positive for malaise/fatigue. Negative for chills, fever and weight loss. HENT: Negative for congestion and sore throat. Eyes: Negative for blurred vision and double vision. Respiratory: Negative for cough and shortness of breath. Cardiovascular: Negative for chest pain and leg swelling. Gastrointestinal: Negative for abdominal pain, blood in stool, constipation, diarrhea, melena, nausea and vomiting. Genitourinary: Negative for dysuria and frequency. Neurological: Negative for sensory change, focal weakness and headaches. OBJECTIVE Vital Signs: Temp: [98.1 ??F (36.7 ??C)-98.4 ??F (36.9 ??C)] 98.4 ??F (36.9 ??C) Pulse: [95-101] 95 Resp: [16-18] 16 BP: (127-136)/(62-81) 131/76 Physical Exam: General: alert and oriented to person, place, time, and situation, no acute distress, cooperative Head: normocephalic, atraumatic Eyes: conjunctivae clear, extraocular muscles intact Mouth/Throat: oropharynx clear with no lesions, moist mucous membranes Neck: no jugular venous distension, no cervical lympadenopathy, full range of motion CV: regular rate and rhythm, no murmurs appreciated Chest: port in place on right chest, c/d/i Resp: clear to auscultation bilaterally, no wheezes or crackles heard Abd: soft, rotund, nontender, nondistended, no masses or hepatosplenomegaly, normoactive bowel sounds Extremities: no clubbing, cyanosis, or edema Skin: skin color and turgor normal, no rashes or lesions noted Neuro: moving all extremities well, no focal deficits Lab Results: BMP: Recent Labs Component Name 11/03/23 0956 10/29/23 1048 10/27/23 1409 NA 143 144 143 CL 109* 111* 111* CO2 25 24 25 BUN 6* 7 9 CREATININE 0.55* 0.54* 0.51* CALCIUM 8.4 9.1 9.3 PHOS 2.4* 1.8* 2.0* CBC: Recent Labs Component Name 11/03/23 0956 10/29/23 1048 10/27/23 1409 WBC 4.3 3.2* 2.8* HGB 6.8* 7.4* 7.3* HCT 19.3* 20.2* 19.7* Hepatic: Recent Labs Component Name 11/03/23 0956 10/29/23 1048 10/27/23 1409 ALT 43 31 32 AST 23 25 22 TBILI 0.5 0.3 0.3 PROT 6.2 6.4 6.4 ALB 3.2* 3.1* 3.1* ALKPHOS 68 73 77 Coagulation: Recent Labs Component Name 09/13/23205109/12/23204509/11/232001 PT 13.1 13.6 14.4 INR 1.0 1.1 1.2 Cardiac Markers: No results for input(s): CK , CKTOTAL , CKMB , CKMBUL , CKMBNGML , TROPONIN , TROPONINI , TROPONINT in the last 40015 hours. ABGs: No results for input(s): PHART , PO2ART , CZE6EIU , BEART in the last 30287 hours. UA: Reviewed. Microbiology: Reviewed. Pathology: Reviewed. Imaging & Studies: Reviewed. ASSESSMENT & PLAN Acute myeloid leukemia in remission (CMS-HCC) (POA: Unknown) Selvin Mckeon is a 38 year old female with PMH of AML diagnosed in 08/2023 who was directly admitted for chemotherapy. Acute problems: #AML #Normocytic anemia #Thrombocytopenia -Presents for cycle 2 of HiDAC -Admission labs notable for Hb 7.8, plt 104 Plan: -Heme/onc following, appreciate recs -HiDAC -Continue home posaconazole 300 mg daily -Continue home valacyclovir 500 mg BID -Start levofloxacin for ANC < 500 Code: Full Diet: DIET REGULAR DVT PPx: SCDs Access: PIV PT/OT: Pending Dispo: Pending medical stabilization. The above assessment and plan will be discussed with the attending. This note is not final until attested by attending physician. Conor Ozuna MD Internal Medicine Resident [facility] 11/03/2023 7:15 PM CASKET ASSEMBLER Associated attestation - Aakash Pierson MD - 11/04/2023 3:33 PM WOOD CASKET ASSEMBLER Patient was seen and examined with medical review specialist, I agree with the history and physical examination and discussed the patient's management with the resident. Aakash Pierson MD Promotion Officer Internal Medicine documented in this encounter Consult Notes * Gaurav Badillo DO - 11/04/2023 12:36 PM CSTAssociated Order(s): IP CONSULT TO HEMATOLOGY Images from the original note were not included. HEMATOLOGY/ONCOLOGY INPATIENT CONSULTATION NOTE Name: Selvin Mckeon Age: [age] year old Date of : 1985 Date of Service: 11/04/2023 Reason for Consult: C2 HiDAC HEMATOLOGY & ONCOLOGY HISTORY Principal Diagnosis: AML, NPM-1 mutation, favorable risk Current Therapy: HiDAC Prior Hematology/Oncology History: 09/02/2023: Bone marrow biopsy at [facility] which revealed 78% blasts likely AML. 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 Hem/Onc consultation requested for above. See above for detailed hematology/oncology history. She tolerated cycle 1 well. She had some nausea/diarrhea but resolved and has not recurred since discharge. She denied any vision complaint, headaches, CP, SOB, abdominal pain or other symptoms. She received 1 unit pRBC in clinic yesterday before admission for Hgb 6.8 -> 7.8. She received first dose of cycle 2 cytarabine on 11/03. Review of Systems: As noted in HPI. All other systems reviewed and negative. Past Medical & Surgical History Patient Active Problem List Diagnosis ??? Vaginal bleeding ??? IIH (idiopathic intracranial hypertension) ??? Acute hypoxic respiratory failure (CMS-HCC) ??? Pulmonary edema ??? Pancytopenia (CMS-HCC) ??? Tonsillitis ??? 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 NEGATIVE PAST MEDICAL HISTORY - SEE PROBLEM LIST Past Surgical History: Procedure Laterality Date ??? Section ??? Cholecystectomy ??? KIDNEY STONES, REMOVAL Past Oncology History Cancer Staging No matching staging information was found for the patient. Oncology History Acute myeloid leukemia in remission (CMS-HCC) 09/03/2023 Initial Diagnosis Acute leukemia of unspecified [...] prevent vision loss. Active Treatment Days for Selvin Mckeon (until 11/05/2023) 11/03/2023 ONCOLOGY TREATMENT: IP AML CONSOLIDATION - AGE <60 (HIGH DOSE CYTARABINE)(SANDHU HIDAC) Day 1, Cycle 2 (Started) Pre-Medications: ondansetron (Zofran) injection 8 mg, [...] 500 mg, valACYclovir (Valtrex) tablet 500 mg 11/05/2023 ONCOLOGY TREATMENT: IP AML CONSOLIDATION - AGE <60 (HIGH DOSE CYTARABINE)(SANDHU HIDAC) Day 3, Cycle 2 (Planned) Pre-Medications: ondansetron (Zofran) injection 8 mg, dexAMETHasone (Decadron) injection 8 mg Chemotherapy: cytarabine (Cytosar) 6,700 mg in 0.9% NaCl IV 567 mL infusion Social History Social History Tobacco Use ??? Smoking status: Former Packs/day: 1 Types: Cigarettes Start date: 2004 Quit date: 2010 Years since quittin.1 ??? Smokeless tobacco: Never Substance Use Topics ??? Alcohol use: Yes Comment: occasional Family History Family History Family history unknown: Yes Medications SCHEDULED MEDICATIONS: 0.9% NaCl injection 3 mL, Intracatheter, q8h artificial tears ophthalmic ointment, Each Eye, 4X/day - AC & HS dexAMETHasone (Decadron) 0.1 % ophthalmic suspension 2 drop, Each Eye, 4X/DAY famotidine (Pepcid) tablet 20 mg, Oral, BID posaconazole (Noxafil) tablet 300 mg, Oral, QDAY WITH DINNER potassium chloride ER (Klor-Con M) tablet 20 mEq, Oral, QDAY valACYclovir (Valtrex) tablet 500 mg, Oral, BID [COMPLETED] cytarabine (Cytosar) 6,700 mg in 0.9% NaCl IV 597 mL infusion, Intravenous, q12h [COMPLETED] dexAMETHasone (Decadron) injection 8 mg, Intravenous, Once [COMPLETED] ondansetron (Zofran) injection 8 mg, Intravenous, Once [START ON 11/10/2023] levoFLOXacin (Levaquin) tablet 500 mg, Oral, QAM CONTINUOUS MEDICATIONS: PRN MEDICATIONS: 0.9% NaCl infusion rate and volume, Intravenous, Once PRN 0.9% NaCl injection 1-10 mL, Intracatheter, PRN dicyclomine (Bentyl) tablet 20 mg, Oral, TID PRN ondansetron (disintegrating) (Zofran ODT) tablet 8 mg, Oral, BID PRN ondansetron (Zofran) injection 8 mg, Intravenous, BID PRN prochlorperazine (Compazine) injection 5 mg, Intravenous, q4h PRN prochlorperazine (Compazine) tablet 10 mg, Oral, q4h PRN Allergies No Known Allergies OBJECTIVE Physical Exam Vitals: 11/03/23 2138 11/03/23 2200 11/04/23 0259 11/04/23 0559 BP: 134/89 126/78 Pulse: 97 103 Resp: 18 Temp: 98.3 ??F (36.8 ??C) 97.5 ??F (36.4 ??C) 97.3 ??F (36.3 ??C) SpO2: 98% Weight: 112.7 kg (248 lb 7.3 oz) Height: 1.575 m (5' 2.01 ) Wt Readings from Last 3 Encounters: 11/03/23 112.7 kg (248 lb 7.3 oz) 11/03/23 112.8 kg (248 lb 9.6 oz) 10/29/23 112.1 kg (247 lb 3.2 oz) ECO General: Well-developed. No acute distress. Sitting on sofa working on laptop. Head: Normocephalic, atraumatic. Eyes: No scleral icterus. [...] above in Hematology & Oncology History ASSESSMENT Selvin Mckeon is a 38 year old female with Acute Myeloid Leukemia presenting for Cycle 2 consolidation with HiDAC. Hem/Onc consultation requested for chemotherapy. 1. 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 No more IT treatment planned. 2. Small volume SAH in right central sulcus - Noted on CT 10/01/23 - NSGY f/u on 11/19/23 - PLT goal >30k 3. Elevated ICP - noted during hospitalization in September, opening pressure on LP - Concern for IIH - Discharged on diamox 4. Vaginal bleeding - endorses mild spotting - medroxyprogesterone discontinued due to c/f IIH - Monthly depo shots (next dose end of October) - PLT goal >30k 5. 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 Recommend changing moisturizing drops to artifical tears (eye drops), as pt declining ointment that is currently ordered - Please transfuse Plt to maintain count >30k at this time due to small SAH, vaginal bleeding, retinal hemorrhages General transfusion parameters (leukoreduced and irradiated blood [...] to contact hem/onc consult fellow via the dump operator or AMION if any questions or clarifications. Patient seen and discussed with Heme/Onc attending. Gaurav Badillo DO Internal Medicine PGY3 CASKET ASSEMBLER Associated attestation - Doris Avilez MD - 11/05/2023 2:03 PM WOOD CASKET ASSEMBLER Attending Physician Supervisory Note I personally interviewed and examined the patient with the housekeeper manager. I confirm the findings and agree with the assessment and plan. Doris Avilez MD documented in this encounter Plan of Treatment Upcoming Encounters Date Type Department Care Team (Late st Contact Info) Description 10/27/2024 10:30 AM WOOD CASKET ASSEMBLER Appointment [facility] [address] [place] [address] Hussain Carias MD [address] [place] [phone] Britni Winston PA-C [address] [place] [address] 11/17/2024 9:00 AM WOOD CASKET ASSEMBLER Office Visit [facility] - Ophthalmology [address] [place] [phone] Song Hobson MD [facility] [facility] [place] [address] documented as of this encounter Procedures Procedure Name Priority Date/Time Associated Diagnosis Comments CBC W AUTO DIFFERENTIAL Routine 11/07/2023 9:03 PM WOOD CASKET ASSEMBLER Acute myeloid leukemia in remission (HCC) COMPREHENSIVE METABOLIC PANEL Routine 11/07/2023 9:03 PM [employer] C[employer]ET AS[employer]ER Acute myeloid leukemia in remission (HCC) PHOSPHORUS BLOOD Routine 11/07/2023 9:03 PM [employer] CASKET ASSEMBLER Acute myeloid leukemia in remission (HCC) MAGNESIUM BLOOD Routine 11/07/2023 9:03 PM WO[employer] CASKET ASSEMBLER Acute myeloid leukemia in remission (HCC) PREPARE RBC LEUKOREDUCED UNIT Routine 11/07/2023 1:17 AM WOOD CASKET ASSEMBLER CBC W AUTO DIFFERENTIAL Routine 11/06/2023 8:08 PM WO[employer] CASKET ASSEMBLER Acute myeloid leukemia in remission (HCC) COMPREHENSIVE METABOLIC PANEL Routine 11/06/2023 8:08 PM [employer] C[employer]ET ASSEMBLER Acute myeloid leukemia in remission (HCC) PHOSPHORUS BLOOD Routine 11/06/2023 8:08 PM WO[employer] CASKET ASSEMBLER Acute myeloid leukemia in remission (HCC) MAGNESIUM BLOOD Routine 11/06/2023 8:08 PM WOOD CASKET ASSEMBLER Acute myeloid leukemia in remission (HCC) TRANSFUSE RED BLOOD CELL LEUKOREDUCED UNIT(S) Routine 11/06/2023 1:06 PM WOOD CASKET ASSEMBLER PREPARE RBC LEUKOREDUCED UNIT Routine 11/06/2023 12:48 PM WOOD CASKET ASSEMBLER TYPE + SCREEN PANEL Routine 11/06/2023 9 :35 AM WOOD CASKET ASSEMBLER CBC W AUTO DIFFERENTIAL Routine 11/05/2023 10:57 PM WO[employer] CASKET ASSEMBLER Acute myeloid leukemia in remission (HCC) COMPREHENSIVE METABOLIC PANEL Routine 11/05/2023 10:57 PM WO[employer] CASKET ASSEMBLER Acute myeloid leukemia in remission (HCC) PHOSPHORUS BLOOD Routine 11/05/2023 10:5 7 PM WO[employer] CASKET ASSEMBLER Acute myeloid leukemia in remission (HCC) MAGNESIUM BLOOD Routine 11/05/2023 10:57 PM WO[employer] CASKET ASSEMBLER Acute myeloid leukemia in remission (HCC) CBC W AUTO DIFFERENTIAL Routine 11/04/2023 9:07 PM WOOD CASKET ASSEMBLER Acute myeloid leukemia in remission (HCC) COMPREHENSIVE METABOLIC PANEL Routine 11/04/2023 9:07 PM WO[employer] CASKET ASSEMBLER Acute myeloid leukemia in remission (HCC) PHOSPHORUS BLOOD Routine 11/04/2023 9:07 PM WOOD CASKET ASSEMBLER Acute myeloid leukemia in remission (HCC) MAGNESIUM BLOOD Routine 11/04/2023 9:07 PM WOOD CASKET ASSEMBLER Acute myeloid leukemia in remission (HCC) TYPE + SCREEN PANEL STAT 11/03/2023 1 1:05 PM WOOD CASKET ASSEMBLER CBC W AUTO DIFFERENTIAL Routine 11/03/2023 11:05 PM WO[employer] CASKET ASSEMBLER Acute myeloid leukemia in remission (HCC) COMPREHENSIVE METABOLIC PANEL Routine 11/03/2023 11:05 PM WO[employer] CASKET ASSEMBLER Acute myeloid leukemia in remission (HCC) PHOSPHORUS BLOOD Routine 11/03/2023 11:0 5 PM WO[employer] CASKET ASSEMBLER Acute myeloid leukemia in remission (HCC) MAGNESIUM BLOOD Routine 11/03/2023 11:05 PM WO[employer] CASKET ASSEMBLER Acute myeloid leukemia in remission (HCC) documented in this encounter Results * PHOSPHORUS BLOOD (11/07/2023 9:03 PM WOOD CASKET ASSEMBLER) [facility] Phosphorus 3.2 2.9 - 5.1 mg/dL 11/07/2023 9:43 PM WOOD CASKET ASSEMBLER [facility] Blood BLOOD SPECIMEN / Unknown Venipuncture / Unknown 11/07/2023 9:03 PM WOOD CASKET ASSEMBLER 11/07/2023 9:13 PM WOOD CASKET ASSEMBLER Hussain Carias MD LAB - CHEMISTRY JON NAIDU [address] [address], [facility] [phone] * MAGNESIUM BLOOD (11/07/2023 9:03 PM WOOD CASKET ASSEMBLER) Magnesium 2.3 1.6 - 2.6 mg/dL 11/07/2023 9:43 PM [facility] Blood BLOOD SPECIMEN / Unknown Venipuncture / Unknown 11/07/2023 9:03 PM WOOD CASKET ASSEMBLER 11/07/2023 9:13 PM WOOD CASKET ASSEMBLER Hussain Carias MD LAB - CHEMISTRY JON NAIDU Performing Organization Address [facility]/ZIP Co de Phone Number [address] [address], [facility] [phone] * (ABNORMAL) CBC W AUTO DIFFERENTIAL (11/07/2023 9:03 PM WOOD CASKET ASSEMBLER) WBC 2.2(L) 4.0 - 10.7 x10E9/L 11/07/2023 9:23 PM [facility] RBC Count 2.82(L) 3.90 - 5.20 x10E12/L 11/07/2023 9:23 PM [facility] Hemoglobin 8.2(L) 11.9 - 15.8 g/dL 11/07/2023 9:23 PM [facility] Hematocrit 23.4(L) 34.8 - 46.1 % 11/07/2023 9:23 PM [facility] MCV 83.0 80.0 - 98.0 fL 11/07/2023 9:23 PM [facility] MCH 29.1 26.7 - 33.6 pg 11/07/2023 9:23 PM [facility] MCHC 35.0 31.7 - 36.3 g/dL 11/07/2023 9:23 PM [facility] RDW-CV 14.5 11.3 - 14.8 % 11/07/2023 9:23 PM [facility] Platelet Count 68(L) 150 - 420 x10E9/L 11/07/2023 9:23 PM [facility] MPV 10.9 7.8 - 11.4 fL 11/07/2023 9:23 PM [facility] Preliminary Absolute Neutrophil 2.06 1.60 - 7.50 x10E9/L 11/07/2023 9:23 PM [facility] Comment:Preliminary ANC pend ing manual confirmation Neutrophil % 92.8(H) 41.0 - 74.0 % 11/07/2023 9:23 PM [facility] Lymphocyte % 5.4(L) 17.0 - 47.0 % 11/07/2023 9:23 PM [facility] Monocyte % 0.9(L) 3.0 - 11.0 % 11/07/2023 9:23 PM [facility] Eosinophil % 0.0 0.0 - 7.0 % 11/07/2023 9:23 PM [facility] Basophil % 0.0 0.0 - 1.6 % 11/07/2023 9:23 PM [facility] Immature Granulocytes % 0.9 0.0 - 1.0 % 11/07/2023 9:23 PM [facility] Neutrophil Absolute 2.06 1.60 - 7.50 x10E9/L 11/07/2023 9:23 PM [facility] Lymphocyte Absolute 0.12(L) 1.00 - 4.40 x10E9/L 11/07/2023 9:23 PM [facility] Monocyte Absolute 0.02(L) 0.15 - 1.00 x10E9/L 11/07/2023 9:23 PM [facility] Eosinophil Absolute 0.00 0.00 - 0.60 x10E9/L 11/07/2023 9:23 PM [facility] Basophil Absolute 0.00 0.00 - 0.13 x10E9/L 11/07/2023 9:23 PM [facility] Blood BLOOD SPECIMEN / Unknown Venipuncture / Unknown 11/07/2023 9:03 PM WOOD CASKET ASSEMBLER 11/07/2023 9:13 PM [facility] Ranju Kunwor MD LAB - HEMATOLOGY ORD ERABLES [facility] [address] [place] [address], [facility] [phone] * (ABNORMAL) COMPREHENSIVE METABOLIC PANEL (11/07/2023 9:03 PM [facility]) BUN 17 7 - 26 mg/dL 11/07/2023 9:43 PM [facility] Creatinine 0.60 0.56 - 0.96 mg/dL 11/07/2023 9:43 PM [facility] Sodium 142 136 - 145 mmol/L 11/07/2023 9:43 PM [facility] Potassium 4.2 3.5 - 4.5 mmol/L 11/07/2023 9:43 PM [facility] Chloride 108(H) 98 - 107 mmol/L 11/07/2023 9:43 PM [facility] CO2 23 22 - 29 mmol/L 11/07/2023 9:43 PM [facility] Glucose 280(H) 70 - 115 mg/dL 11/07/2023 9:43 PM [facility] Calcium 9.0 8.4 - 10.2 mg/dL 11/07/2023 9:43 PM [facility] Protein Total 6.1 6.0 - 8.3 g/dL 11/07/2023 9:43 PM [facility] Albumin 3.3(L) 3.4 - 5.0 g/dL 11/07/2023 9:43 PM [facility] Bilirubin Total 0.6 0.2 - 1.2 mg/dL 11/07/2023 9:43 PM [facility] Alkaline Phosphatase 67 40 - 150 U/L 11/07/2023 9:43 PM [facility] ALT 34 5 - 55 U/L 11/07/2023 9:43 PM [facility] AST 21 5 - 34 U/L 11/07/2023 9:43 PM [facility] Anion Gap 11 6 - 16 11/07/2023 9:43 PM [facility] BUN/Creatinine Ratio 28(H) 7 - 23 11/07/2023 9:43 PM [facility] Osmolality Calculated 306(H) 275 - 295 mOsm/kg 11/07/2023 9:43 PM WO[employer] CASKET ASSEMBLER [facility] Albumin/Globulin Ratio 1.2 1.1 - 2.3 11/07/2023 9:43 PM WO[employer] CASKET ASSEMBLER [facility] eGFR by CKD-EPI >90 >=90 mL/min/1.7 3 m2 11/07/2023 9:43 PM WO[employer] CASKET ASSEMBLER [facility] Blood BLOOD SPECIMEN / Unknown Venipuncture / Unknown 11/07/2023 9:03 PM WOOD CASKET ASSEMBLER 11/07/2023 9:13 PM WOOD CASKET ASSEMBLER Hussain Carias MD LAB - CHEMISTRY JON NAIDU Performing Organization Address City/[facility]/ZIP Co de Phone Number [address] [address], [place] [phone] * PREPARE (CROSSMATCH) RBC UNIT(S), 1 Units (11/07/2023 1:17 AM WOOD CASKET ASSEMBLER) Unit Description N/A [facility] Blood Bank BLOOD SPECIMEN / Unknown 11/03/2023 11:11 PM WOOD CASKET ASSEMBLER Aakash Pierson MD LAB - BLOOD BANK ORD ERABLES Performing Organization Address [facility]/ZIP Co de Phone Number [facility] [address] [place] [address], [place] [phone] * (ABNORMAL) PHOSPHORUS BLOOD (11/06/2023 8:08 PM WOOD CASKET ASSEMBLER) Phosphorus 2.7(L) 2.9 - 5.1 mg/dL 11/06/2023 8:56 PM WOOD CASKET ASSEMBLER [facility] Blood BLOOD SPECIMEN / Unknown Venipuncture / Unknown 11/06/2023 8:08 PM WOOD CASKET ASSEMBLER 11/06/2023 8:28 PM WO[employer] CASKET ASSEMBLER Hussain Carias MD LAB - CHEMISTRY JON NAIDU Performing Organization Address City/[facility]/ZIP Co de Phone Number [address] [id number] [phone] * MAGNESIUM BLOOD (11/06/2023 8:08 PM WOOD CASKET ASSEMBLER) Pathologist [facility] Magnesium 2.1 1.6 - 2.6 mg/dL 11/06/2023 8:56 PM [facility] Blood BLOOD SPECIMEN / Unknown Venipuncture / Unknown 11/06/2023 8:08 PM WOOD CASKET ASSEMBLER 11/06/2023 8:28 PM WO[employer] CASKET ASSEMBLER Hussain Carias MD LAB - CHEMISTRY JON NAIDU [facility] [address] [place] [address], [facility] [phone] * (ABNORMAL) CBC W AUTO DIFFERENTIAL (11/06/2023 8:08 PM WOOD CASKET ASSEMBLER) [facility] WBC 3.5(L) 4.0 - 10.7 x10E9/L 11/06/2023 8:44 PM [facility] RBC Count 2.79(L) 3.90 - 5.20 x10E12/L 11/06/2023 8:44 PM [facility] Hemoglobin 8.1(L) 11.9 - 15.8 g/dL 11/06/2023 8:44 PM [facility] Hematocrit 23.7(L) 34.8 - 46.1 % 11/06/2023 8:44 PM [facility] MCV 84.9 80.0 - 98.0 fL 11/06/2023 8:44 PM [facility] MCH 29.0 26.7 - 33.6 pg 11/06/2023 8:44 PM [facility] MCHC 34.2 31.7 - 36.3 g/dL 11/06/2023 8:44 PM [facility] RDW-CV 14.8 11.3 - 14.8 % 11/06/2023 8:44 PM [facility] Platelet Count 79(L) 150 - 420 x10E9/L 11/06/2023 8:44 PM [facility] MPV 11.2 7.8 - 11.4 fL 11/06/2023 8:44 PM [facility] Preliminary Absolute Neutrophil 3.06 1.60 - 7.50 x10E9/L 11/06/2023 8:44 PM [facility] Comment:Preliminary ANC pend ing manual confirmation Neutrophil % 87.6(H) 41.0 - 74.0 % 11/06/2023 8:44 PM [facility] Lymphocyte % 7.2(L) 17.0 - 47.0 % 11/06/2023 8:44 PM [facility] Monocyte % 4.3 3.0 - 11.0 % 11/06/2023 8:44 PM [facility] Eosinophil % 0.0 0.0 - 7.0 % 11/06/2023 8:44 PM [facility] Basophil % 0.0 0.0 - 1.6 % 11/06/2023 8:44 PM [facility] Immature Granulocytes % 0.9 0.0 - 1.0 % 11/06/2023 8:44 PM [facility] Neutrophil Absolute 3.06 1.60 - 7.50 x10E9/L 11/06/2023 8:44 PM [facility] Lymphocyte Absolute 0.25(L) 1.00 - 4.40 x10E9/L 11/06/2023 8:44 PM [facility] Monocyte Absolute 0.15 0.15 - 1.00 x10E9/L 11/06/2023 8:44 PM [facility] Eosinophil Absolute 0.00 0.00 - 0.60 x10E9/L 11/06/2023 8:44 PM [facility] Basophil Absolute 0.00 0.00 - 0.13 x10E9/L 11/06/2023 8:44 PM [facility] Blood BLOOD SPECIMEN / Unknown Venipuncture / Unknown 11/06/2023 8:08 PM WOOD CASKET ASSEMBLER 11/06/2023 8:28 PM [facility] Hussain Carias MD LAB - HEMATOLOGY ORD ERABLES [facility] [address] [place] [address], [facility] [phone] * (ABNORMAL) COMPREHENSIVE METABOLIC PANEL (11/06/2023 8:08 PM [facility]) BUN 15 7 - 26 mg/dL 11/06/2023 9:15 PM [facility] Creatinine 0.64 0.56 - 0.96 mg/dL 11/06/2023 9:15 PM [facility] Sodium 138 136 - 145 mmol/L 11/06/2023 9:15 PM [facility] Potassium 3.7 3.5 - 4.5 mmol/L 11/06/2023 9:15 PM [facility] Chloride 108(H) 98 - 107 mmol/L 11/06/2023 9:15 PM [facility] CO2 23 22 - 29 mmol/L 11/06/2023 9:15 PM [facility] Glucose 222(H) 70 - 115 mg/dL 11/06/2023 9:15 PM [facility] Calcium 8.5 8.4 - 10.2 mg/dL 11/06/2023 9:15 PM [facility] Protein Total 6.1 6.0 - 8.3 g/dL 11/06/2023 9:15 PM [facility] Albumin 3.3(L) 3.4 - 5.0 g/dL 11/06/2023 9:15 PM [facility] Bilirubin Total 0.6 0.2 - 1.2 mg/dL 11/06/2023 9:15 PM [facility] Alkaline Phosphatase 62 40 - 150 U/L 11/06/2023 9:15 PM [facility] ALT 27 5 - 55 U/L 11/06/2023 9:15 PM [facility] AST 15 5 - 34 U/L 11/06/2023 9:15 PM [facility] Anion Gap 7 6 - 16 11/06/2023 9:15 PM [facility] BUN/Creatinine Ratio 23 7 - 23 11/06/2023 9:15 PM [facility] Osmolality Calculated 294 275 - 295 mOsm/kg 11/06/2023 9:15 PM [facility] Albumin/Globulin Ratio 1.2 1.1 - 2.3 11/06/2023 9:15 PM [facility] eGFR by CKD-EPI >90 >=90 mL/min/1.7 3 m2 11/06/2023 9:15 PM WOOD CASKET ASSEMBLER [facility] Blood BLOOD SPECIMEN / Unknown Venipuncture / Unknown 11/06/2023 8:08 PM WOOD CASKET ASSEMBLER 11/06/2023 8:28 PM WOOD CASKET ASSEMBLER Hussain Carias MD LAB - CHEMISTRY ORDE ELYSIA Performing Organization Address City/[facility]/ZIP Co de Phone Number [facility] [address] [place] [address], [place] [phone] * TRANSFUSE RED BLOOD CELL LEUKOREDUCED UNIT(S) (11/06/2023 2:59 PM WOOD CASKET ASSEMBLER) Aakash Pierson MD NURSING - BLOOD PROD TRANSFUSION * TRANSFUSE RED BLOOD CELL LEUKOREDUCED UNIT(S), 1 Units (11/06/2023 2:59 PM WOOD CASKET ASSEMBLER) Aakash Pierson MD NURSING - BLOOD PROD TRANSFUSION * PREPARE (CROSSMATCH) RBC UNIT(S), 1 Units (11/06/2023 12:48 PM WOOD CASKET ASSEMBLER) Unit Description AS1 LR PRBC IRR [facility] Unit ABO O [facility] Unit Rh POS [facility] Product Number R04 [facility] Unit Donor # [id number] [facility] Unit Status transfused [facility] Product Code [id number] [facility] Blood Type Barcode 5100 [facility] Expiration Date [id number] S BLOOD BANK LAB Blood Bank BLOOD SPECIMEN / Unknown 11/03/2023 11:11 PM WOOD CASKET ASSEMBLER Hussain Carias MD LAB - BLOOD BANK ORD ERABLES [facility] [address] [place] [address], [place] [phone] * TYPE + SCREEN PANEL (11/06/2023 9:35 AM WOOD CASKET ASSEMBLER) Antibody Screen NEG 10:33 AM WOOD CASKET ASSEMBLER [facility] ABO Rh O POS 11/06/2023 10:33 AM WOOD CASKET ASSEMBLER [facility] Blood Bank BLOOD SPECIMEN / Unknown Venipuncture / Unknown 11/06/2023 9:35 AM WO[employer] CASKET ASSEMBLER 11/06/2023 9:42 AM WOOD CASKET ASSEMBLER Aakash Pierson MD LAB - BLOOD BANK ORD GELY Performing Organization Address City/[facility]/ZIP Co de Phone Number [facility] [address] [place] [address], [place] [phone] * (ABNORMAL) PHOSPHORUS BLOOD (11/05/2023 10:57 PM WOOD CASKET ASSEMBLER) Phosphorus 2.7(L) 2.9 - 5.1 mg/dL 11/05/2023 11:24 PM WOOD CASKET ASSEMBLER [facility] Blood BLOOD SPECIMEN / Unknown Venipuncture / Unknown 11/05/2023 10:57 PM WOOD CASKET ASSEMBLER 11/05/2023 10:57 PM WO[employer] CASKET ASSEMBLER Hussain Carias MD LAB - CHEMISTRY JON NAIDU Performing Organization Address [facility]/ZIP Co de Phone Number [facility] [address] [address], [place] [phone] * MAGNESIUM BLOOD (11/05/2023 10:57 PM WOOD CASKET ASSEMBLER) Magnesium 2.0 1.6 - 2.6 mg/dL 11/05/2023 11:24 PM WOOD CASKET ASSEMBLER [facility] Blood BLOOD SPECIMEN / Unknown Venipuncture / Unknown 11/05/2023 10:57 PM WO[employer] CASKET ASSEMBLER 11/05/2023 10:57 PM WO[employer] CASKET ASSEMBLER Hussain Carias MD LAB - CHEMISTRY JON NAIDU Performing Organization Address [facility]/ZIP Co de Phone Number [address] [address], [place] [phone] * (ABNORMAL) CBC W AUTO DIFFERENTIAL (11/05/2023 10:57 PM WOOD CASKET ASSEMBLER) WBC 4.2 4.0 - 10.7 x10E9/L 11/05/2023 11:10 PM [facility] RBC Count 2.38(L) 3.90 - 5.20 x10E12/L 11/05/2023 11:10 PM [facility] Hemoglobin 7.0(L) 11.9 - 15.8 g/dL 11/05/2023 11:10 PM [facility] Hematocrit 20.3(L) 34.8 - 46.1 % 11/05/2023 11:10 PM [facility] MCV 85.3 80.0 - 98.0 fL 11/05/2023 11:10 PM [facility] MCH 29.4 26.7 - 33.6 pg 11/05/2023 11:10 PM [facility] MCHC 34.5 31.7 - 36.3 g/dL 11/05/2023 11:10 PM [facility] RDW-CV 15.9(H) 11.3 - 14.8 % 11/05/2023 11:10 PM [facility] Platelet Count 94(L) 150 - 420 x10E9/L 11/05/2023 11:10 PM [facility] MPV 11.5(H) 7.8 - 11.4 fL 11/05/2023 11:10 PM [facility] Preliminary Absolute Neutrophil 3.64 1.60 - 7.50 x10E9/L 11/05/2023 11:10 PM [facility] Comment:Preliminary ANC pend ing manual confirmation Neutrophil % 86.8(H) 41.0 - 74.0 % 11/05/2023 11:10 PM [facility] Lymphocyte % 6.2(L) 17.0 - 47.0 % 11/05/2023 11:10 PM [facility] Monocyte % 6.0 3.0 - 11.0 % 11/05/2023 11:10 PM [facility] Eosinophil % 0.0 0.0 - 7.0 % 11/05/2023 11:10 PM [facility] Basophil % 0.0 0.0 - 1.6 % 11/05/2023 11:10 PM [facility] Immature Granulocytes % 1.0 0.0 - 1.0 % 11/05/2023 11:10 PM [facility] Neutrophil Absolute 3.64 1.60 - 7.50 x10E9/L 11/05/2023 11:10 PM [facility] Lymphocyte Absolute 0.26(L) 1.00 - 4.40 x10E9/L 11/05/2023 11:10 PM [facility] Monocyte Absolute 0.25 0.15 - 1.00 x10E9/L 11/05/2023 11:10 PM [facility] Eosinophil Absolute 0.00 0.00 - 0.60 x10E9/L 11/05/2023 11:10 PM [facility] Basophil Absolute 0.00 0.00 - 0.13 x10E9/L 11/05/2023 11:10 PM [facility] Blood BLOOD SPECIMEN / Unknown Venipuncture / Unknown 11/05/2023 10:57 PM WOOD CASKET ASSEMBLER 11/05/2023 10:58 PM [facility] Hussain Carias MD LAB - HEMATOLOGY ORD ERABLES [facility] [address] [place] [id number] [phone] * (ABNORMAL) COMPREHENSIVE METABOLIC PANEL (11/05/2023 10:57 PM WO[employer] CASKET ASSEMBLER) BUN 14 7 - 26 mg/dL 11/05/2023 11:24 PM [facility] Creatinine 0.57 0.56 - 0.96 mg/dL 11/05/2023 11:24 PM [facility] Sodium 140 136 - 145 mmol/L 11/05/2023 11:24 PM [facility] Potassium 4.3 3.5 - 4.5 mmol/L 11/05/2023 11:24 PM [facility] Chloride 110(H) 98 - 107 mmol/L 11/05/2023 11:24 PM [facility] CO2 24 22 - 29 mmol/L 11/05/2023 11:24 PM [facility] Glucose 217(H) 70 - 115 mg/dL 11/05/2023 11:24 PM [facility] Calcium 9.0 8.4 - 10.2 mg/dL 11/05/2023 11:24 PM [facility] Protein Total 6.1 6.0 - 8.3 g/dL 11/05/2023 11:24 PM [facility] Albumin 3.2(L) 3.4 - 5.0 g/dL 11/05/2023 11:24 PM [facility] Bilirubin Total 0.4 0.2 - 1.2 mg/dL 11/05/2023 11:24 PM [facility] Alkaline Phosphatase 66 40 - 150 U/L 11/05/2023 11:24 PM [facility] ALT 29 5 - 55 U/L 11/05/2023 11:24 PM [facility] AST 16 5 - 34 U/L 11/05/2023 11:24 PM [facility] Anion Gap 6 6 - 16 11/05/2023 11:24 PM [facility] BUN/Creatinine Ratio 25(H) 7 - 23 11/05/2023 11:24 PM [facility] Osmolality Calculated 297(H) 275 - 295 mOsm/kg 11/05/2023 11:24 PM [facility] Albumin/Globulin Ratio 1.1 1.1 - 2.3 11/05/2023 11:24 PM [facility] eGFR by CKD-EPI >90 >=90 mL/min/1.7 3 m2 11/05/2023 11:24 PM [facility] Blood BLOOD SPECIMEN / Unknown Venipuncture / Unknown 11/05/2023 10:57 PM [employer] 11/05/2023 10:57 PM [facility] Hussain Carias MD LAB - CHEMISTRY ORDE [facility] Organization Address City/State/ZIP Co de Phone Number [facility] [address] [place] [address], [facility] [phone] * (ABNORMAL) PHOSPHORUS BLOOD (11/04/2023 9:07 PM [facility]) Phosphorus 2.0(L) 2.9 - 5.1 mg/dL 11/04/2023 9:47 PM [facility] Blood BLOOD SPECIMEN / Unknown Venipuncture / Unknown 11/04/2023 9:07 PM [employer] 11/04/2023 9:21 PM [employer] Hussain Carias MD LAB - CHEMISTRY JON NAIDU [facility] [address] [place] [phone], [facility] [phone] * MAGNESIUM BLOOD (11/04/2023 9:07 PM [employer]) Magnesium 1.6 1.6 - 2.6 mg/dL 11/04/2023 9:47 PM [facility] Blood BLOOD SPECIMEN / Unknown Venipuncture / Unknown 11/04/2023 9:07 PM [employer] 11/04/2023 9:21 PM [employer] Hussain Carias MD LAB - CHEMISTRY JON NAIDU Performing Organization Address [facility]/ZIP Co de Phone Number [address] [address], [facility] [phone] * (ABNORMAL) CBC W AUTO DIFFERENTIAL (11/04/2023 9:07 PM [employer]) WBC 5.7 4.0 - 10.7 x10E9/L 11/04/2023 9:36 PM [facility] RBC Count 2.64(L) 3.90 - 5.20 x10E12/L 11/04/2023 9:36 PM [facility] Hemoglobin 7.6(L) 11.9 - 15.8 g/dL 11/04/2023 9:36 PM [facility] Hematocrit 22.1(L) 34.8 - 46.1 % 11/04/2023 9:36 PM [facility] MCV 83.7 80.0 - 98.0 fL 11/04/2023 9:36 PM [facility] MCH 28.8 26.7 - 33.6 pg 11/04/2023 9:36 PM [facility] MCHC 34.4 31.7 - 36.3 g/dL 11/04/2023 9:36 PM [facility] RDW-CV 16.1(H) 11.3 - 14.8 % 11/04/2023 9:36 PM [facility] Platelet Count 104(L) 150 - 420 x10E9/L 11/04/2023 9:36 PM [facility] MPV 11.4 7.8 - 11.4 fL 11/04/2023 9:36 PM [facility] Preliminary Absolute Neutrophil 4.51 1.60 - 7.50 x10E9/L 11/04/2023 9:36 PM [facility] Neutrophil % 79.4(H) 41.0 - 74.0 % 11/04/2023 9:36 PM [facility] Lymphocyte % 4.0(L) 17.0 - 47.0 % 11/04/2023 9:36 PM [facility] Monocyte % 15.7(H) 3.0 - 11.0 % 11/04/2023 9:36 PM [facility] Eosinophil % 0.0 0.0 - 7.0 % 11/04/2023 9:36 PM [facility] Basophil % 0.0 0.0 - 1.6 % 11/04/2023 9:36 PM [facility] Immature Granulocytes % 0.9 0.0 - 1.0 % 11/04/2023 9:36 PM [facility] Neutrophil Absolute 4.51 1.60 - 7.50 x10E9/L 11/04/2023 9:36 PM [facility] Lymphocyte Absolute 0.23(L) 1.00 - 4.40 x10E9/L 11/04/2023 9:36 PM [facility] Monocyte Absolute 0.89 0.15 - 1.00 x10E9/L 11/04/2023 9:36 PM [facility] Eosinophil Absolute 0.00 0.00 - 0.60 x10E9/L 11/04/2023 9:36 PM [facility] Basophil Absolute 0.00 0.00 - 0.13 x10E9/L 11/04/2023 9:36 PM [facility] Blood BLOOD SPECIMEN / Unknown Venipuncture / Unknown 11/04/2023 9:07 PM [employer] 11/04/2023 9:21 PM [employer] Hussain Carias MD LAB - HEMATOLOGY ORD ERABLES [facility] [address] [place] [address], [facility] [phone] * (ABNORMAL) COMPREHENSIVE METABOLIC PANEL (11/04/2023 9:07 PM [employer]) BUN 15 7 - 26 mg/dL 11/04/2023 9:49 PM [facility] Creatinine 0.59 0.56 - 0.96 mg/dL 11/04/2023 9:49 PM [facility] Sodium 141 136 - 145 mmol/L 11/04/2023 9:49 PM [facility] Potassium 4.0 3.5 - 4.5 mmol/L 11/04/2023 9:49 PM [facility] Chloride 111(H) 98 - 107 mmol/L 11/04/2023 9:49 PM [facility] CO2 22 22 - 29 mmol/L 11/04/2023 9:49 PM [facility] Glucose 212(H) 70 - 115 mg/dL 11/04/2023 9:49 PM [facility] Calcium 9.4 8.4 - 10.2 mg/dL 11/04/2023 9:49 PM [facility] Protein Total 6.4 6.0 - 8.3 g/dL 11/04/2023 9:49 PM [facility] Albumin 3.3(L) 3.4 - 5.0 g/dL 11/04/2023 9:49 PM [facility] Bilirubin Total 0.6 0.2 - 1.2 mg/dL 11/04/2023 9:49 PM [facility] Alkaline Phosphatase 72 40 - 150 U/L 11/04/2023 9:49 PM [facility] ALT 33 5 - 55 U/L 11/04/2023 9:49 PM [facility] AST 15 5 - 34 U/L 11/04/2023 9:49 PM [facility] Anion Gap 8 6 - 16 11/04/2023 9:49 PM [facility] BUN/Creatinine Ratio 25(H) 7 - 23 11/04/2023 9:49 PM [facility] Osmolality Calculated 299(H) 275 - 295 mOsm/kg 11/04/2023 9:49 PM [facility] Albumin/Globulin Ratio 1.1 1.1 - 2.3 11/04/2023 9:49 PM [facility] eGFR by CKD-EPI >90 >=90 mL/min/1.7 3 m2 11/04/2023 9:49 PM [facility] Blood BLOOD SPECIMEN / Unknown Venipuncture / Unknown 11/04/2023 9:07 PM [employer] 11/04/2023 9:21 PM [employer] Hussain Carias MD LAB - CHEMISTRY ORDE ELYSIA Performing Organization Address City/[facility]/ZIP Co de Phone Number [address] [address], [place] [phone] * TYPE + SCREEN PANEL (11/03/2023 11:05 PM [employer]) Antibody Screen NEG 11:48 PM [facility] BLOOD BANK LAB ABO Rh O POS 11/03/2023 11:48 PM [employer] [facility] BLOOD BANK LAB Blood Bank BLOOD SPECIMEN / Unknown Venipuncture / Unknown 11/03/2023 11:05 PM [employer] 11/03/2023 11:11 PM [employer] Hussain Carias MD LAB - BLOOD BANK ORD ERABLES [facility] BLOOD BANK LAB [address] [place] [id number], [place] [phone] * PHOSPHORUS BLOOD (11/03/2023 11:05 PM [employer]) Phosphorus 3.1 2.9 - 5.1 mg/dL 11/03/2023 11:41 PM [facility] Blood BLOOD SPECIMEN / Unknown Venipuncture / Unknown 11/03/2023 11:05 PM [employer] 11/03/2023 11:15 PM [employer] Hussain Carias MD LAB - CHEMISTRY JON NAIDU [facility] [address] [place] [id number], [facility] [phone] * MAGNESIUM BLOOD (11/03/2023 11:05 PM [employer]) [facility] Magnesium 1.6 1.6 - 2.6 mg/dL 11/03/2023 11:41 PM [facility] Blood BLOOD SPECIMEN / Unknown Venipuncture / Unknown 11/03/2023 11:05 PM [employer] 11/03/2023 11:15 PM [employer] Hussain Carias MD LAB - CHEMISTRY JON NAIDU Performing Organization Address [facility]/ZIP Co de Phone Number [address] [address], [facility] [phone] * (ABNORMAL) CBC W AUTO DIFFERENTIAL (11/03/2023 11:05 PM [employer]) [facility] WBC 4.2 4.0 - 10.7 x10E9/L 11/04/2023 1:38 AM [facility] RBC Count 2.66(L) 3.90 - 5.20 x10E12/L 11/04/2023 1:38 AM [facility] Hemoglobin 7.8(L) 11.9 - 15.8 g/dL 11/04/2023 1:38 AM [facility] Hematocrit 22.3(L) 34.8 - 46.1 % 11/04/2023 1:38 AM [facility] MCV 83.8 80.0 - 98.0 fL 11/04/2023 1:38 AM [facility] MCH 29.3 26.7 - 33.6 pg 11/04/2023 1:38 AM [facility] MCHC 35.0 31.7 - 36.3 g/dL 11/04/2023 1:38 AM [facility] RDW-CV 15.4(H) 11.3 - 14.8 % 11/04/2023 1:38 AM [facility] Platelet Count 104(L) 150 - 420 x10E9/L 11/04/2023 1:38 AM [facility] MPV 11.2 7.8 - 11.4 fL 11/04/2023 1:38 AM [facility] Preliminary Absolute Neutrophil 2.54 1.60 - 7.50 x10E9/L 11/04/2023 1:38 AM [facility] Comment:Preliminary ANC pend ing manual confirmation Neutrophil % 61.1 41.0 - 74.0 % 11/04/2023 1:38 AM [facility] Lymphocyte % 14.4(L) 17.0 - 47.0 % 11/04/2023 1:38 AM [facility] Monocyte % 23.8(H) 3.0 - 11.0 % 11/04/2023 1:38 AM [facility] Eosinophil % 0.0 0.0 - 7.0 % 11/04/2023 1:38 AM [facility] Basophil % 0.2 0.0 - 1.6 % 11/04/2023 1:38 AM [facility] Immature Granulocytes % 0.5 0.0 - 1.0 % 11/04/2023 1:38 AM [facility] Neutrophil Absolute 2.54 1.60 - 7.50 x10E9/L 11/04/2023 1:38 AM [facility] Lymphocyte Absolute 0.60(L) 1.00 - 4.40 x10E9/L 11/04/2023 1:38 AM [facility] Monocyte Absolute 0.99 0.15 - 1.00 x10E9/L 11/04/2023 1:38 AM [facility] Eosinophil Absolute 0.00 0.00 - 0.60 x10E9/L 11/04/2023 1:38 AM [facility] Basophil Absolute 0.01 0.00 - 0.13 x10E9/L 11/04/2023 1:38 AM [facility] NRBC 2.2(H) <=0.0 /100 WBC 11/04/2023 1:38 AM [facility] Blood BLOOD SPECIMEN / Unknown Venipuncture / Unknown 11/03/2023 11:05 PM [facility] 11/03/2023 11:15 PM [facility] Hussain Carias MD LAB - HEMATOLOGY ORD ERABLES [facility] [address] [place] [address], [facility] [phone] * (ABNORMAL) COMPREHENSIVE METABOLIC PANEL (11/03/2023 11:05 PM [facility]) BUN 9 7 - 26 mg/dL 11/03/2023 11:41 PM [facility] Creatinine 0.54(L) 0.56 - 0.96 mg/dL 11/03/2023 11:41 PM [facility] Sodium 149(H) 136 - 145 mmol/L 11/03/2023 11:41 PM [facility] Potassium 3.6 3.5 - 4.5 mmol/L 11/03/2023 11:41 PM [facility] Chloride 111(H) 98 - 107 mmol/L 11/03/2023 11:41 PM [facility] CO2 25 22 - 29 mmol/L 11/03/2023 11:41 PM [facility] Glucose 104 70 - 115 mg/dL 11/03/2023 11:41 PM [facility] Calcium 9.0 8.4 - 10.2 mg/dL 11/03/2023 11:41 PM [facility] Protein Total 6.1 6.0 - 8.3 g/dL 11/03/2023 11:41 PM [facility] Albumin 3.1(L) 3.4 - 5.0 g/dL 11/03/2023 11:41 PM [facility] Bilirubin Total 0.5 0.2 - 1.2 mg/dL 11/03/2023 11:41 PM [facility] Alkaline Phosphatase 67 40 - 150 U/L 11/03/2023 11:41 PM [facility] ALT 39 5 - 55 U/L 11/03/2023 11:41 PM [facility] AST 22 5 - 34 U/L 11/03/2023 11:41 PM [facility] Anion Gap 13 6 - 16 11/03/2023 11:41 PM [facility] BUN/Creatinine Ratio 17 7 - 23 11/03/2023 11:41 PM [facility] Osmolality Calculated 307(H) 275 - 295 mOsm/kg 11/03/2023 11:41 PM [facility] Albumin/Globulin Ratio 1.0(L) 1.1 - 2.3 11/03/2023 11:41 PM [facility] eGFR by CKD-EPI >90 >=90 mL/min/1.7 3 m2 11/03/2023 11:41 PM [facility] Blood BLOOD SPECIMEN / Unknown Venipuncture / Unknown 11/03/2023 11:05 PM [employer] 11/03/2023 11:15 PM [employer] Hussain Carias MD LAB - CHEMISTRY JON NAIDU [facility] Organization Address City/State/ZIP Co de Phone Number [facility] [address] [place] [address], 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 Anemia Anemia, unspecified Pancytopenia (HCC) Hypernatremia Hyperosmolality and/or hypernatremia Hypophosphatemia Disorders of phosphorus metabolism documented in this encounter Administered Medications Inactive Administered Medications - up to 3 most recent administrations Medication Order MAR Action Action Date Dose Rate Site 0.45% NaCl infusion at 75 mL/hr, Intravenous, CONTINUOUS, Starting on Fri11/04/23 at 0830, Until Fri11/04/23 at 1000 $ New Bag/Syringe 11/04/2023 8:46 AM [employer] 75 mL/ hr 0.9% NaCl injection 1-10 mL 1-10 mL, Intracatheter, PRN, Other, peripheral line flush, Starting on Fri11/03/23 at 1919, Until 11/08/23 at 1439, Flush peripheral IV catheter with 1-10 mL of normal saline before and after medications and prn to clear blood from the line or to verify patency. 0.9% NaCl injection 3 mL 3 mL, Intracatheter, EVERY 8 HOURS, First dose on Fri11/03/23 at 2200, Until Discontinued, Flush peripheral IV catheter with 3 mL of normal saline every 8 hours. $ Given 11/07/2023 9:50 PM [employer] 3 mL $ Given 11/07/2023 2:47 PM [employer] 3 mL $ Given 11/05/2023 3:17 PM [employer] 3 mL artificial tears ophthalmic ointment Each Eye, 4 TIMES DAILY - BEFORE MEALS AND AT BEDTIME, First dose on Fri11/03/23 at 2100, Until Discontinued $ Given 11/04/2023 8:43 AM [employer] artificial tears ophthalmic solution 1 drop 1 drop, Each Eye, 3 TIMES DAILY PRN, Dry Eyes, Starting on Fri11/04/23 at 1415, Until 11/08/23 at 1439 cytarabine (Cytosar) 6,700 mg in 0.9% NaCl IV 597 mL infusion 6,700 mg (rounded from 6,720 mg = 3,000 mg/m2 ? 2.24 m2 Treatment Plan BSA from Recorded weight), at 199 mL/hr, Administer over 3 Hours, Intravenous, EVERY 12 HOURS, 1 dose, First dose on Fri11/03/23 at 2330, . PREMEDICATION(s): should be administered at least 30 minutes prior to infusion $ New Bag/Syringe 11/03/2023 11:46 PM [employer] 6,700 mg 199 mL/hr cytarabine (Cytosar) 6,700 mg in 0.9% NaCl IV 597 mL infusion 6,700 mg (rounded from 6,720 mg = 3,000 mg/m2 ? 2.24 m2 Treatment Plan BSA from Recorded weight), at 199 mL/hr, Administer over 3 Hours, Intravenous, EVERY 12 HOURS, 2 doses, First dose on Fri11/05/23 at 1000, Last dose on Fri11/05/23 at 2200, . PREMEDICATION(s): should be administered at least 30 minutes prior to infusion $ New Bag/Syringe 11/05/2023 10:22 PM [employer] 6,700 mg 199 mL/hr $ New Bag/Syringe 11/05/2023 10:41 AM [employer] 6,700 mg 199 m L/hr cytarabine (Cytosar) 6,700 mg in 0.9% NaCl IV 597 mL infusion 6,700 mg (rounded from 6,720 mg = 3,000 mg/m2 ? 2.24 m2 Treatment Plan BSA from Recorded weight), at 199 mL/hr, Administer over 3 Hours, Intravenous, EVERY 12 HOURS, 2 doses, First dose on Fri11/07/23 at 1000, Last dose on Fri11/07/23 at 2200, . PREMEDICATION(s): should be administered at least 30 minutes prior to infusion $ New Bag/Syringe 11/07/2023 9:56 PM [employer] 6,700 mg 199 mL/hr $ New Bag/Syringe 11/07/2023 10:22 AM [employer] 6,700 mg 199 m L/hr dexAMETHasone (Decadron) 0.1 % ophthalmic suspension 2 drop 2 drop, Each Eye, FOUR TIMES DAILY, 32 doses, First dose on Fri11/03/23 at 2100, Last dose on Fri11/11/23 at 1400, Shake well before using. $ Given 11/08/2023 9:48 AM [employer] 2 drops $ Given 11/08/2023 6:03 AM [employer] 2 drops $ Given 11/07/2023 8:59 PM [employer] 2 drops dexAMETHasone (Decadron) injection 8 mg 8 mg, Intravenous, ONCE, 1 dose, On Fri11/03/23 at 2300, Administer 30 minutes prior to chemotherapy ONLY IF patient did not take oral dexamethasone. $ Given 11/03/2023 11:00 PM [employer] 8 mg dexAMETHasone (Decadron) injection 8 mg 8 mg, Intravenous, ONCE, 1 dose, On Fri11/05/23 at 0930, Administer 30 minutes prior to chemotherapy ONLY IF patient did not take oral dexamethasone. $ Given 11/05/2023 9:18 AM [employer] 8 mg dexAMETHasone (Decadron) injection 8 mg 8 mg, Intravenous, ONCE, 1 dose, On Fri11/07/23 at 0930, Administer 30 minutes prior to chemotherapy ONLY IF patient did not take oral dexamethasone. $ Given 11/07/2023 9:28 AM [employer] 8 mg famotidine (Pepcid) tablet 20 mg 20 mg, Oral, 2 TIMES DAILY, First dose on Fri11/03/23 at 2100, Until Discontinued $ Given 11/08/2023 9:48 AM [employer] 20 m g $ Given 11/07/2023 8:59 PM [employer] 20 mg $ Given 11/07/2023 9:28 AM [employer] 20 mg levoFLOXacin (Levaquin) tablet 500 mg 500 mg, Oral, EVERY MORNING, 30 doses, First dose on Fri11/10/23 at 0700, Last dose on Fri12/09/23 at 0700, Do not administer with magnesium, calcium or ferrous sulfate-containing products., Indication for anti-infective therapy: Chronic prophylaxis ondansetron (disintegrating) (Zofran ODT) tablet 8 mg 8 mg, Oral, 2 TIMES DAILY PRN, Nausea/Vomiting, Starting on Fri11/03/23 at 1535, Until 11/08/23 at 1439, Second line therapy if failed prochlorperazine with continued loss of appetite and > 3 episodes of vomiting. Do not administer if patient received palonosetron within 48 hours or exceed ondansetron 32 mg in 24 hours. Use IV if patient unable to tolerate oral administration. Dissolved orally on tongue ondansetron (Zofran) injection 8 mg 8 mg, Intravenous, 2 TIMES DAILY PRN, Nausea/Vomiting, Starting on Fri11/03/23 at 1535, Until 11/08/23 at 1439, Administer over 2 to 5 minutes. Second line therapy if failed prochlorperazine with continued loss of appetite and > 3 episodes of vomiting. Do not administer if patient received palonosetron within 48 hours or exceed ondansetron 32 mg in 24 hours. Use IV if patient unable to tolerate oral administration. $ Given 11/05/2023 9:17 AM [employer] 8 mg ondansetron (Zofran) injection 8 mg 8 mg, Intravenous, ONCE, 1 dose, On Fri11/03/23 at 2300, Administer over 2 to 5 minutes. Administer 30 minutes prior to chemotherapy. $ Given 11/03/2023 11:00 PM [employer] 8 mg ondansetron (Zofran) injection 8 mg 8 mg, Intravenous, EVERY 12 HOURS, 2 doses, First dose on Fri11/05/23 at 0930, Last dose on Fri11/05/23 at 2130, Administer over 2 to 5 minutes. Administer 30 minutes prior to chemotherapy. $ Given 11/05/2023 9:27 PM [employer] 8 mg $ Given 11/05/2023 9:20 AM [employer] 8 mg ondansetron (Zofran) injection 8 mg 8 mg, Intravenous, EVERY 12 HOURS, 2 doses, First dose on Fri11/07/23 at 0930, Last dose on Fri11/07/23 at 2130, Administer over 2 to 5 minutes. Administer 30 minutes prior to chemotherapy. $ Given 11/07/2023 9:39 PM [employer] 8 mg $ Given 11/07/2023 9:27 AM [employer] 8 mg posaconazole (Noxafil) tablet 300 mg 300 mg, Oral, DAILY WITH DINNER, First dose on Fri11/03/23 at 2030, Until Discontinued, Swallow whole. Do not crush, chew, or cut in half., Indication for anti-infective therapy: Chronic prophylaxis $ Given 11/07/2023 5:37 PM [employer] 300 mg $ Given 11/06/2023 5:52 PM [employer] 300 mg $ Given 11/05/2023 5:36 PM [employer] 300 mg potassium chloride ER (Klor-Con M) tablet 20 mEq 20 mEq, Oral, DAILY, First dose on Fri11/03/23 at 2100, Until Discontinued, Swallow whole, do not crush, chew or break. May cut in half but do not crush or chew. $ Given 11/08/2023 9:48 AM [employer] 20 mEq $ Given 11/07/2023 9:27 AM [employer] 20 mEq $ Given 11/06/2023 9:27 AM [employer] 20 mEq potassium phosphate 15 mmol in 250 mL bolus 15 mmol, at 62.5 mL/hr, Administer over 4 Hours, Intravenous, ONCE, 1 dose, On Fri11/05/23 at 0900, 3 mmol phosphate = 4.4 mEq potassium $ New Bag/Syringe 11/05/2023 9:21 AM [employer] 15 mmol 62.5 mL/hr prochlorperazine (Compazine) injection 5 mg 5 mg, Intravenous, EVERY 4 HOURS PRN, Nausea/Vomiting, Starting on Fri11/03/23 at 1535, Until 11/08/23 at 1439, Max intravenous rate = 5 mg/min First line therapy for Grade 1 nausea, loss of appetite, or initial onset of vomiting 1-2 episodes. Use IV if patient unable to tolerate oral administration prochlorperazine (Compazine) tablet 10 mg 10 mg, Oral, EVERY 4 HOURS PRN, Nausea/Vomiting, Starting on Fri11/03/23 at 1535, Until 11/08/23 at 1439, First line therapy for Grade 1 nausea, loss of appetite, or initial onset of vomiting 1-2 episodes. Use IV if patient unable to tolerate oral administration sodium - potassium phosphates (K Phos Neutral) tablet 1 tablet 1 tablet, Oral, 2 TIMES DAILY, 4 doses, First dose on Fri11/06/23 at 0915, Last dose on Fri11/07/23 at 2100, Contains Phos 8 mmol, K+ 1.1 mEq, Na 13 mEq per tablet $ Given 11/07/2023 8:59 PM [employer] 1 tablet $ Given 11/07/2023 9:27 AM [employer] 1 tablet $ Given 11/06/2023 8:03 PM [employer] 1 tablet sodium - potassium phosphates (K Phos Neutral) tablet 2 tablet 2 tablet, Oral, DAILY, First dose on Fri11/03/23 at 2100, Until Discontinued, Contains Phos 8 mmol, K+ 1.1 mEq, Na 13 mEq per tablet $ Given 11/03/2023 9:14 PM [employer] 2 tablets valACYclovir (Valtrex) tablet 500 mg 500 mg, Oral, 2 TIMES DAILY, First dose on Fri11/03/23 at 2030, Until Discontinued, Indication for anti-infective therapy: Chronic prophylaxis $ Given 11/08/2023 9:48 AM [employer] 500 mg $ Given 11/07/2023 8:59 PM [employer] 500 mg $ Given 11/07/2023 9:27 AM [employer] 500 mg documented in this encounter Active and Recently Administered Medications Times are shown in [employer]. Scheduled Medication Order 11/06/2023 11/07/2023 11/08/2023 0.9% NaCl injection 3 mL(Linked Group 1) 3 mL, Intracatheter, EVERY 8 HOURS, First dose on Fri11/03/23 at 2200, Until Discontinued, Flush peripheral IV catheter with 3 mL of normal saline every 8 hours. 0607 (Canceled Entry - Provider: Marly Wharton RN)1531 (Canceled Entry - Provider: Nurse Chintan Roller Helper)2133 (Canceled Entry - Provider: Flor Upton RN) 0552 (Canceled Entry - Provider: Flor Upton RN)1447 ($ Given - Provider: Tram Carrillo RN)2150 ($ Given - Provider: Komal Gomez RN) 0443 (Canceled Entry - Provider: Flor Upton RN) cytarabine (Cytosar) 6,700 mg in 0.9% NaCl IV 597 mL infusion (COMPLETED) 6,700 mg (rounded from 6,720 mg = 3,000 mg/m2 ? 2.24 m2 Treatment Plan BSA from Recorded weight), at 199 mL/hr, Administer over 3 Hours, Intravenous, EVERY 12 HOURS, 2 doses, First dose on Fri11/07/23 at 1000, Last dose on Fri11/07/23 at 2200, . PREMEDICATION(s): should be administered at least 30 minutes prior to infusion 1022 ($ New Bag/Syringe - Provider: Tram Carrillo RN)1418 (Stopped - Provider: Tram Carrillo RN)2156 ($ New Bag/Syringe - Provider: Komal Gomez RN - Comment: Chemo gown and gloves used, good blood return noted, consent in chart, cerebellar check done and intact.) 0117 (Stopped - Provider: Flor Upton RN - Comment: pt tolerating well) dexAMETHasone (Decadron) 0.1 % ophthalmic suspension 2 drop 2 drop, Each Eye, FOUR TIMES DAILY, 32 doses, First dose on Fri11/03/23 at 2100, Last dose on Fri11/11/23 at 1400, Shake well before using. 0637 ($ Given - Provider: Marly Wharton RN)0928 ($ Given - Provider: Lynda Shaver, Nurse Roller Helper)1541 ($ Given - Provider: Lynda Shaver, Nurse Roller Helper)2002 ($ Given - Provider: Flor Upton, CORRIE) 0624 ($ Given - Provider: Flor Upton RN)0947 ($ Given - Provider: Tram Carrillo RN)1448 ($ Given - Provider: Tram Carrillo RN)2059 ($ Given - Provider: Flor Upton RN) 0603 ($ Given - Provider: Flor Upton, CORRIE)0948 ($ Given - Provider: Tram Carrillo, CORRIE) dexAMETHasone (Decadron) injection 8 mg (COMPLETED) 8 mg, Intravenous, ONCE, 1 dose, On Fri11/07/23 at 0930, Administer 30 minutes prior to chemotherapy ONLY IF patient did not take oral dexamethasone. 09 ($ Given - Provider: Tram Carrillo RN) famotidine (Pepcid) tablet 20 mg 20 mg, Oral, 2 TIMES DAILY, First dose on Fri11/03/23 at 2100, Until Discontinued 926 ($ Given - Provider: Lynda Shaver, Nurse Roller Helper)2002 ($ Given - Provider: Flor Upton, RN) 927 ($ Given - Provider: Tram Carrillo, RN)2058 ($ Given - Provider: Flor Upton, CORRIE) 947 ($ Given - Provider: Tram Carrillo RN) levoFLOXacin (Levaquin) tablet 500 mg 500 mg, Oral, EVERY MORNING, 30 doses, First dose on Fri11/10/23 at 0700, Last dose on Fri12/09/23 at 0700, Do not administer with magnesium, calcium or ferrous sulfate-containing products., Indication for anti-infective therapy: Chronic prophylaxis ondansetron (Zofran) injection 8 mg (COMPLETED) 8 mg, Intravenous, EVERY 12 HOURS, 2 doses, First dose on Fri11/07/23 at 0930, Last dose on Fri11/07/23 at 2130, Administer over 2 to 5 minutes. Administer 30 minutes prior to chemotherapy. 926 ($ Given - Provider: Tram Carrillo RN)2138 ($ Given - Provider: Flor Upton RN) posaconazole (Noxafil) tablet 300 mg 300 mg, Oral, DAILY WITH DINNER, First dose on Fri11/03/23 at 2030, Until Discontinued, Swallow whole. Do not crush, chew, or cut in half., Indication for anti-infective therapy: Chronic prophylaxis 1751 ($ Given - Provider: Lynda Shaver, Nurse Roller Helper) 173 ($ Given - Provider: Tram Carrillo, RN) potassium chloride ER (Klor-Con M) tablet 20 mEq 20 mEq, Oral, DAILY, First dose on Fri11/03/23 at 2100, Until Discontinued, Swallow whole, do not crush, chew or break. May cut in half but do not crush or chew. 926 ($ Given - Provider: Lynda Shaver, Nurse Roller Helper) 926 ($ Given - Provider: Tram Carrillo, CORRIE) 947 ($ Given - Provider: Tram Carrillo RN) sodium - potassium phosphates (K Phos Neutral) tablet 1 tablet (COMPLETED) 1 tablet, Oral, 2 TIMES DAILY, 4 doses, First dose on Fri11/06/23 at 0915, Last dose on Fri11/07/23 at 2100, Contains Phos 8 mmol, K+ 1.1 mEq, Na 13 mEq per tablet 926 ($ Given - Provider: Lynda Shaver, Nurse Roller Helper)2002 ($ Given - Provider: Flor Upton, CORRIE) 926 ($ Given - Provider: Tram Carrillo RN)2058 ($ Given - Provider: Flor Upton, CORRIE) valACYclovir (Valtrex) tablet 500 mg 500 mg, Oral, 2 TIMES DAILY, First dose on Fri11/03/23 at 2030, Until Discontinued, Indication for anti-infective therapy: Chronic prophylaxis 926 ($ Given - Provider: Lynda Shaver, Nurse Roller Helper)2002 ($ Given - Provider: Flor Upton RN) 926 ($ Given - Provider: Tram Carrillo RN)2058 ($ Given - Provider: Flor Upton RN) 09 ($ Given - Provider: Tram Carrillo RN) PRN Medication Order 11/06/2023 11/07/2023 11/08/2023 0.9% NaCl injection 1-10 mL(Linked Group 1) 1-10 mL, Intracatheter, PRN, Other, peripheral line flush, Starting on Fri11/03/23 at 1919, Until 11/08/23 at 1439, Flush peripheral IV catheter with 1-10 mL of normal saline before and after medications and prn to clear blood from the line or to verify patency. artificial tears ophthalmic solution 1 drop 1 drop, Each Eye, 3 TIMES DAILY PRN, Dry Eyes, Starting on Fri11/04/23 at 1415, Until 11/08/23 at 1439 dicyclomine (Bentyl) tablet 20 mg 20 mg, Oral, 3 TIMES DAILY PRN, cramping, Starting on Fri11/03/23 at 2020, Until 11/08/23 at 1439 ondansetron (disintegrating) (Zofran ODT) tablet 8 mg 8 mg, Oral, 2 TIMES DAILY PRN, Nausea/Vomiting, Starting on Fri11/03/23 at 1535, Until 11/08/23 at 1439, Second line therapy if failed prochlorperazine with continued loss of appetite and > 3 episodes of vomiting. Do not administer if patient received palonosetron within 48 hours or exceed ondansetron 32 mg in 24 hours. Use IV if patient unable to tolerate oral administration. Dissolved orally on tongue ondansetron (Zofran) injection 8 mg 8 mg, Intravenous, 2 TIMES DAILY PRN, Nausea/Vomiting, Starting on Fri11/03/23 at 1535, Until 11/08/23 at 1439, Administer over 2 to 5 minutes. Second [...] EVERY 4 HOURS PRN, Nausea/Vomiting, Starting on Fri11/03/23 at 1535, Until 11/08/23 at 1439, Max intravenous rate = 5 mg/min First line therapy for Grade 1 nausea, loss of appetite, or initial onset of vomiting 1-2 episodes. Use IV if patient unable to tolerate oral administration prochlorperazine (Compazine) tablet 10 mg 10 mg, Oral, EVERY 4 HOURS PRN, Nausea/Vomiting, Starting on Fri11/03/23 at 1535, Until 11/08/23 at 1439, First line therapy for Grade 1 nausea, loss of appetite, or initial onset of vomiting 1-2 episodes. Use IV if patient unable to tolerate oral administration Linked Groups Order Group 1: SALINE LOCK, INSERT AND MAINTAIN (CANCELED) Routine, CONTINUOUS, Starting on Fri11/03/23 at 1930, Until Specified, New collection And 0.9% NaCl injection 3 mLJump to med 3 mL, Intracatheter, EVERY 8 HOURS, First dose on Fri11/03/23 at 2200, Until Discontinued, Flush peripheral IV catheter with 3 mL of normal saline every 8 hours. And 0.9% NaCl injection 1-10 mLJump to med 1-10 mL, Intracatheter, PRN, Other, peripheral line flush, Starting on Fri11/03/23 at 1919, Until 11/08/23 at 1439, Flush peripheral IV catheter with 1-10 mL of normal saline before and after medications and prn to clear blood from the line or to verify patency. documented in this encounter Care Teams Sales Exec Relationship Specialty Start Date End Date Zaria-Gagen, Nilam, MD [address] [place] [phone] PCP - General Family Medicine 09/04/23 04/18/24 documented as of this encounter
--- OUTSIDE RECORDS SUMMARY | 2024-08-31 21:29 | XMS_ITS | Encounter Summary ---
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 Appointment [facility] [address] [place] [address] Hussain Carias MD [address] [place] [phone] Britni Winston, PABaronC [address] [place] [address] 11/17/2024 9:00 AM RUBBER THREAD SPOOLER Office Visit [facility] - Ophthalmology [address] [place] [phone] Song Hobson MD [address] [place] [address] [place] [address] documented as of this encounter Visit Diagnoses Not on filedocumented in this encounter Additional Health Concerns Infection Onset Date Last Indicated Resolved Time COVID-19 Under Investigation 11/10/2023 11/10/2023 11/10/2023 6:57 PM RUBBER THREAD SPOOLER documented as of this encounter Care Teams Electric Motor And Generator Assembler Relationship Specialty Start Date End Date Nilam Mayers MD [address] [place] [phone] PCP - General Family Medicine 09/04/23 04/18/24 documented as of this encounter
--- OUTSIDE RECORDS SUMMARY | 2024-08-31 21:29 | XMS_ITS | Encounter Summary ---
Author Organization [facility] Address [address] [place] [address] Care Team Providers Care Chemical Processor Name Role Phone Nilam Mayers MD Primary Care Provider +1- [phone] Encounter Details Date Type Department Care Team (Latest Contact Info) Description 11/19/2023 8:38 AM PLASTIC DIE MAKER APPRENTICE - 11/19/2023 8:57 AM [facility] Hospital Encounter [facility] CL[facility] [address] [place] [address] Hussain Carias MD [address] [place] [address] Britni Winston, PABaronC [address] [place] [address] Discharge Disposition: Home or Self [...] care, and heating? Not very hard 11/03/2023 [place] of Occupat ional Health - Occupational Stress [...] * Patient Instructions* Britni Winston PA-C - 11/19/2023 1:11 PM PLASTIC DIE MAKER APPRENTICE Thank you for entrusting your healthcare to the physicians and other specialists at the [facility]emat[facility] On[facility]. [facility]ematology/On[facility] Clinic: [phone] RN: Alyson Butcher or Beronica Lilly For symptom management or prescription questions during business hours (Mon-Fri 8AM-4:30PM), pleasecall the clinic front end driver ([phone]) and your message will be routed to your RN. Outside of business hours, please call the hematology/oncology doctor on-call. If you have an urgent need during business hours please make sure to speak with a front office manager so your message is routed urgently to a nurse. Hem/Onc Doctor On-Call (After hours, weekends, holidays): [phone], Dial [phone] (Readiness Paraprofessional) and askfor the hematology/oncology fellow on-call and [...] room: New chest pain or difficulty breathing TIC DIE MAKER APPRENTICE documented in this encounter Medications at Time [...] Progress Notes * Britni Winston PA-C - 11/19/2023 11:01 AM CST [facility] Hematology/Oncology Clinic Visit Note Date of visit: 11/19/2023 Patient: Sarah Mckeon Oncologist: Dr. 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 Was treated with vanc cefepime and then CTX, but had persistent pancytopenia. Bone marrow biopsy was done which showed 78% blast on the bone marrow flow cytometry and confirmed NPM1 mutation. Pt was transferred to [facility] for concern for AML. Count recovery BMBx performed at [facility] on 10/01/23 confirmed no blasts, MRD [...] presents to clinic for cycle 2 day 17 HiDAC. Reports vaginal bleeding (1 pad per day). Denies any dry eyes this week. She has been using her PFATs regularly. Denies D/C/N/V/pain anywhere. Denies F/C. Reports her cough/rhinorrhea have mostly resolved. VSS PERFORMANCE STATUS: KPS 90 / ECOG [...] (Non-Medical): No Stress: Stress Concern Present (11/03/2023) [place] of Occupational Health - Occupational Stress Questionnaire [...] EXAM: Wt Readings from Last 3 Encounters: 11/19/23 110.5 kg (243 lb 8 oz) 11/17/23 109.4 kg (241 lb 1.6 oz) 11/14/23 109.5 kg (241 lb 6.4 oz) Temp Readings from Last 3 Encounters: 11/19/23 98.6 ??F 11/19/23 97.6 ??F 11/17/23 98 ??F BP Readings from Last 3 Encounters: 11/19/23 129/93 11/19/23 125/88 11/17/23 128/80 Pulse Readings from Last 3 Encounters: 11/19/23 (!) 120 11/19/23 (!) 115 11/17/23 92 Physical Exam Vitals reviewed. Constitutional: General: She is not in acute distress. Appearance: She is not ill-appearing. HENT: Head: Normocephalic and atraumatic. Nose: No rhinorrhea. Eyes: General: Lids are normal. Extraocular Movements: [...] normal. LABS: Recent Labs Component Name 11/19/23 0840 11/17/23 0946 WBC - 0.4* HGB 8.4* 7.0* HCT 22.9* 19.7* PLTCOUNT - 24* Recent Labs Component Name 11/19/23 0840 11/17/23 0946 11/14/23 1548 11/14/23 1314 11/12/23 1136 11/10/23 1312 11/07/233 11/06/23200711/05/23 2257 11/03/23 0956 10/29/23 1048 10/27/23 1409 10/24/232 10/13/230 10/13/23 1354 10/02/23213110/01/23211809/30/23200809/07/23200709/06/23 21409/05/23 0909 09/04/23 0525 WBC - 0.4* 0.3* 0.5* - 1.1* 2.2* 3.5* 4.2 - 3.2* 2.8* 1.3* - 0.5* - 4.1 4.1 - 0.6* - 1.9* RBC 2.95* 2.43* 2.47* 2.78* - 2.80* 2.82* 2.79* 2.38* - 2.51* 2.48* 2.69* - 2.54* - 2.36* 2.32* - 2.45* - 2.51* HGB 8.4* 7.0* 7.1* 8.0* - 8.3* 8.2* 8.1* 7.0* - 7.4* 7.3* 7.8* - 7.5* - 7.3* 7.1* - 7.9* - 8.1* HCT 22.9* 19.7* 20.0* 22.6* - 23.0* 23.4* 23.7* 20.3* - 20.2* 19.7* 21.1* - 20.2* - 21.5* 20.4* - 22.0* - 22.6* MCV 77.6* 81.1 81.0 81.3 - 82.1 83.0 84.9 85.3 - 80.5 79.4* 78.4* - 79.5* - 91.1 87.9 - 89.8 - 90.0 MCH 28.5 28.8 28.7 28.8 - 29.6 29.1 29.0 29.4 - 29.5 29.4 29.0 - 29.5 - 30.9 30.6 - 32.2 - 32.3 MCHC 36.7* 35.5 35.5 35.4 - 36.1 35.0 34.2 34.5 - 36.6* 37.1* 37.0* - 37.1* - 34.0 34.8 - 35.9 - 35.8 MPV - 10.1 10.6 10.1 - 12.6* 10.9 11.2 11.5* - 11.1 11.8* 10.8 - - - 11.4 11.0 - 11.8* - - NEUTPCT - - - - - - 92.8* 87.6* 86.8* - - - - - - - - - - - - - MONOPCT - - - - - - 0.9* 4.3 6.0 - - - - - - - - - - - - - EOSPCT - - - - - - 0.0 0.0 0.0 - - - - - - - - - - - - - BASOPCT - - - - - - 0.0 0.0 0.0 - - - - - - - - - - - - - MONO - - - - - - - - - - 1.09* 1.15* 0.49 - - - 0.78 1.07* - 0.02* - 0.02* EOS - - - - - 0.01 - [...] not detected Deletion 7q: not detected t(8;21) RUNX1::JGWC3Z4 Fusion: not detected 11p15 (NUP98) Rearrangement: not detected 11q23 (KMT2A) Rearrangement: not detected inv(16) or t(16;16) CBFB::MYH11 Fusion: not detected INTERPRETATION There was no evidence of RPN1::MECOM fusion due to 3q21/3q26.2 inversion or translocation, deletion 5q31, monosomy 7, deletion 7q31, RUNX1::USXK5E2 fusion due to translocation (8;21)(q21.3;q22), 11p15 (NUP98) [...] only. 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 Specimens A Bone [...] agent. Report dictated by Sivakumar Garrido DO (Skills Auditor). Attending Physician: Dr. Augustine Davison Freight Loader: Dr. Sivakumar Garrido DO (Skills Auditor). The procedure was performed by the: The front office assistant, and the attending radiologist was present [...] 38 year old female who transferred to [facility] on 09/03/2023 for suspected AML. Patient started 7 + 3 (cytarabine and idarubicin) on 09/06/2023. 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 1. 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 - Resolved per neurosurgery 11/18 s/p repeat head CT. PLAN: - Labs reviewed, plts 10 per prelim count. - 1 unit plt given for plt 10 - Plt threshold >30K at this time d/t active vaginal bleeding; will keep at >20 when vaginal bleeding slows. - Continue OI ppx with Valtrex, Levaquin, and posaconazole. - Transfusion parameters: (leukoreduced and irradiated blood products) pRBC to keep Hgb >7 if hemodynamically stable and no bleeding. PLT transfusion to keep PLT >30K at this time due to vaginal bleeding. F/u: f/u on 11/21/23 and 11/24/23 for labs only, and on 11/25 for labs and ABEL visit Britni Winston PA-C Blood & Marrow Transplant [facility] TIC DIE MAKER APPRENTICE documented in this encounter Plan of Treatment Upcoming Encounters Date Type Department Care Team (Late st Contact Info) Description 10/27/2024 10:30 AM PLASTIC DIE MAKER APPRENTICE Appointment [facility] B[facility] CLINIC [address] [place] [address] Hussain Carias MD [address] [place] [phone] Britni Winston PA-C [address] [place] [address] 11/17/2024 9:00 AM PLASTIC DIE MAKER APPRENTICE Office Visit [facility] - Ophthalmology [address] [place] [phone] Song Hobson MD [address] [place] [address] [place] [address] documented as of this encounter Procedures Procedure Name Priority Date/Time Associated Diagnosis Comments PLATELET COUNT AUTO Routine 11/19/2023 1 1:39 AM PLASTIC DIE MAKER APPRENTICE Acute myeloid leukemia in remission (HCC) TRANSFUSE PLATELET PHERESIS UNIT(S) Routine 11/19/2023 10:49 AM PLASTIC DIE MAKER APPRENTICE PREPARE PLATELET PHERESIS UNIT(S) Routine 11/19/2023 10:44 AM PLASTIC DIE MAKER APPRENTICE URIC ACID BLOOD STAT 11/19/2023 8:40 AM PLASTIC DIE MAKER APPRENTICE Acute myeloid leukemia in remission (HCC) TYPE + SCREEN PANEL STAT 11/19/2023 8 :40 AM PLASTIC DIE MAKER APPRENTICE Acute myeloid leukemia in remission (HCC) CBC W AUTO DIFFERENTIAL STAT 11/19/2023 8:40 AM PLASTIC DIE MAKER APPRENTICE Acute myeloid leukemia in remission (HCC) COMPREHENSIVE METABOLIC PANEL STAT 11/19/2023 8:40 AM PLASTIC DIE MAKER APPRENTICE Acute myeloid leukemia in remission (HCC) PHOSPHORUS BLOOD STAT 11/19/2023 8:40 AM PLASTIC DIE MAKER APPRENTICE Acute myeloid leukemia in remission (HCC) MAGNESIUM BLOOD STAT 11/19/2023 8:40 AM PLASTIC DIE MAKER APPRENTICE Acute myeloid leukemia in remission (HCC) LDH BLOOD STAT 11/19/2023 8:40 AM PLASTIC DIE MAKER APPRENTICE Acute myeloid leukemia in remission (HCC) documented in this encounter Results * (ABNORMAL) PLATELET COUNT AUTO (11/19/2023 11:39 AM PLASTIC DIE MAKER APPRENTICE) Platelet Count 40(L) 150 - 420 x10E9/L 11/19/2023 12:10 PM PLASTIC DIE MAKER APPRENTICE [facility] Blood BLOOD SPECIMEN / Unknown Venipuncture / Unknown 11/19/2023 11:39 AM PLASTIC DIE MAKER APPRENTICE 11/19/2023 11:47 AM PLASTIC DIE MAKER APPRENTICE Britni Winston PA-C LAB - HEMATOLOGY ORD ERABLES [facility] [address] [place] [address], [facility] [phone] * TRANSFUSE PLATELET PHERESIS UNIT(S) (11/19/2023 11:38 AM PLASTIC DIE MAKER APPRENTICE) Britni Winston PA-C NURSING - BLOOD PROD TRANSFUSION * TRANSFUSE PLATELET PHERESIS UNIT(S), 1 Units (11/19/2023 11:38 AM PLASTIC DIE MAKER APPRENTICE) Britni Winston PA-C NURSING - BLOOD PROD TRANSFUSION * PREPARE PLATELET PHERESIS UNIT(S), 1 Units (11/19/2023 10:44 AM PLASTIC DIE MAKER APPRENTICE) Unit Description LR PLT Phere PRT [facility] Unit ABO O [facility] Unit Rh NEG [facility] Product Number [id number] [facility] B LO[facility] Unit Donor # [id number] [facility] Unit Status transfused [facility] B[facility] OD [facility] Product Code [id number] [facility] B[facility] OD [facility] LAB Blood Type Barcode 9500 [facility] Expiration Date [id number] S BLOOD BANK LAB Blood Bank BLOOD SPECIMEN / Unknown 11/19/2023 8:48 AM PLASTIC DIE MAKER APPRENTICE Britni Winston PA-C LAB - BLOOD BANK ORD ERABLES Performing Organization Address [facility]/ZIP Co de Phone Number [facility] [address] [place] [address], [facility] [phone] * TYPE + SCREEN PANEL (11/19/2023 8:40 AM PLASTIC DIE MAKER APPRENTICE) Antibody Screen NEG 9:39 AM PLASTIC DIE MAKER APPRENTICE [facility] ABO Rh O POS 11/19/2023 9:39 AM PLASTIC DIE MAKER APPRENTICE [facility] Blood Bank BLOOD SPECIMEN / Unknown Venipuncture / Unknown 11/19/2023 8:40 AM PLASTIC DIE MAKER APPRENTICE 11/19/2023 8:48 AM PLASTIC DIE MAKER APPRENTICE Britni Winston PA-C LAB - BLOOD BANK ORD ERABLES [facility] [address] [place] [address], [facility] [phone] * URIC ACID BLOOD (11/19/2023 8:40 AM PLASTIC DIE MAKER APPRENTICE) [facility] Uric Acid 4.0 2.6 - 6.0 mg/dL 11/19/2023 9:17 AM PLASTIC DIE MAKER APPRENTICE [facility] Blood BLOOD SPECIMEN / Unknown Venipuncture / Unknown 11/19/2023 8:40 AM PLASTIC DIE MAKER APPRENTICE 11/19/2023 8:48 AM PLASTIC DIE MAKER APPRENTICE Britni Winston PA-C LAB - CHEMISTRY JON NAIDU Performing Organization Address City/[facility]/ZIP Co de Phone Number [facility] [address] [place] [phone], [facility] [phone] * LDH BLOOD (11/19/2023 8:40 AM PLASTIC DIE MAKER APPRENTICE) [facility] LDH Total 203 125 - 243 Units/L 11/19/2023 9:17 AM [facility] Blood BLOOD SPECIMEN / Unknown Venipuncture / Unknown 11/19/2023 8:40 AM PLASTIC DIE MAKER APPRENTICE 11/19/2023 8:48 AM PLASTIC DIE MAKER APPRENTICE Britni Winston PA-C LAB - CHEMISTRY JON NAIDU Performing Organization Address City/[facility]/ZIP Co de Phone Number [address] [address], [facility] [phone] * (ABNORMAL) CBC WITH DIFFERENTIAL (11/19/2023 8:40 AM PLASTIC DIE MAKER APPRENTICE) [facility] WBC 0.4(LL) 4.0 - 10.7 x10E9/L 11/19/2023 11:25 AM [facility] Comment:No Manual Differenti al performed. WBC count < 0.5 RBC Count 2.95(L) 3.90 - 5.20 x10E12/L 11/19/2023 11:25 AM [facility] Hemoglobin 8.4(L) 11.9 - 15.8 g/dL 11/19/2023 11:25 AM [facility] Hematocrit 22.9(L) 34.8 - 46.1 % 11/19/2023 11:25 AM [facility] MCV 77.6(L) 80.0 - 98.0 fL 11/19/2023 11:25 AM [facility] MCH 28.5 26.7 - 33.6 pg 11/19/2023 11:25 AM [facility] MCHC 36.7(H) 31.7 - 36.3 g/dL 11/19/2023 11:25 AM [facility] RDW-CV 13.1 11.3 - 14.8 % 11/19/2023 11:25 AM [facility] Platelet Count 10(LL) 150 - 420 x10E9/L 11/19/2023 11:25 AM [facility] MPV 9.5 7.8 - 11.4 fL 11/19/2023 11:25 AM [facility] Blood BLOOD SPECIMEN / Unknown Venipuncture / Unknown 11/19/2023 8:40 AM PLASTIC DIE MAKER APPRENTICE 11/19/2023 8:48 AM PLASTIC DIE MAKER APPRENTICE Britin Winston PA-C LAB - HEMATOLOGY ORD ERABLES [address] [address], [facility] [phone] * MAGNESIUM BLOOD (11/19/2023 8:40 AM PLASTIC DIE MAKER APPRENTICE) Magnesium 1.8 1.6 - 2.6 mg/dL 11/19/2023 9:17 AM [facility] Blood BLOOD SPECIMEN / Unknown Venipuncture / Unknown 11/19/2023 8:40 AM PLASTIC DIE MAKER APPRENTICE 11/19/2023 8:48 AM PLASTIC DIE MAKER APPRENTICE Britni Winston PA-C LAB - CHEMISTRY ORDE RABLES [address] [address], [place] [phone] * (ABNORMAL) COMPREHENSIVE METABOLIC PANEL (11/19/2023 8:40 AM PLASTIC DIE MAKER APPRENTICE) BUN 12 7 - 26 mg/dL 11/19/2023 9:17 AM [facility] Creatinine 0.65 0.56 - 0.96 mg/dL 11/19/2023 9:17 AM [facility] Sodium 141 136 - 145 mmol/L 11/19/2023 9:17 AM [facility] Potassium 3.8 3.5 - 4.5 mmol/L 11/19/2023 9:17 AM [facility] Chloride 111(H) 98 - 107 mmol/L 11/19/2023 9:17 AM [facility] CO2 20(L) 22 - 29 mmol/L 11/19/2023 9:17 AM [facility] Glucose 153(H) 70 - 115 mg/dL 11/19/2023 9:17 AM [facility] Calcium 9.2 8.4 - 10.2 mg/dL 11/19/2023 9:17 AM [facility] Protein Total 6.8 6.0 - 8.3 g/dL 11/19/2023 9:17 AM [facility] Albumin 3.4 3.4 - 5.0 g/dL 11/19/2023 9:17 AM [facility] Bilirubin Total 0.7 0.2 - 1.2 mg/dL 11/19/2023 9:17 AM [facility] Alkaline Phosphatase 81 40 - 150 U/L 11/19/2023 9:17 AM [facility] ALT 26 5 - 55 U/L 11/19/2023 9:17 AM [facility] AST 13 5 - 34 U/L 11/19/2023 9:17 AM [facility] Anion Gap 10 6 - 16 11/19/2023 9:17 AM [facility] BUN/Creatinine Ratio 18 7 - 23 11/19/2023 9:17 AM [facility] Osmolality Calculated 295 275 - 295 mOsm/kg 11/19/2023 9:17 AM [facility] Albumin/Globulin Ratio 1.0(L) 1.1 - 2.3 11/19/2023 9:17 AM [facility] eGFR by CKD-EPI >90 >=90 mL/min/1.7 3 m2 11/19/2023 9:17 AM PLASTIC DIE MAKER APPRENTICE [facility] Blood BLOOD SPECIMEN / Unknown Venipuncture / Unknown 11/19/2023 8:40 AM PLASTIC DIE MAKER APPRENTICE 11/19/2023 8:48 AM PLASTIC DIE MAKER APPRENTICE Britni Winston PA-C LAB - CHEMISTRY JON NAIDU Performing Organization Address City/[facility]/ZIP Co de Phone Number [facility] [address] [place] [phone], [facility] [phone] * PHOSPHORUS BLOOD (11/19/2023 8:40 AM PLASTIC DIE MAKER APPRENTICE) Phosphorus 2.9 2.9 - 5.1 mg/dL 11/19/2023 9:17 AM PLASTIC DIE MAKER APPRENTICE [facility] Blood BLOOD SPECIMEN / Unknown Venipuncture / Unknown 11/19/2023 8:40 AM PLASTIC DIE MAKER APPRENTICE 11/19/2023 8:48 AM PLASTIC DIE MAKER APPRENTICE Britni Winston PA-C LAB - CHEMISTRY JON NAIDU Performing Organization Address City/[facility]/ZIP Co de Phone Number [address] [address], [facility] [phone] documented in this encounter Visit Diagnoses Diagnosis 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 documented in this encounter Care Teams Chemical Processor Relationship Specialty Start Date End Date Nilam Mayers MD [address] [place] [phone] PCP - General Family Medicine 09/04/23 04/18/24 documented as of this encounter
--- OUTSIDE RECORDS SUMMARY | 2024-08-31 21:29 | XMS_ITS | Encounter Summary ---
Author Organization [facility] Address [address] [place] [address] [place] [address] Care Team Providers Care Garment Sewer Hand Name Role Phone Nilam Mayers MD Primary Care Provider +1- [phone] Encounter Details Date Type Department Care Team (Latest Contact Info) Description 11/28/2023 Travel Social History Tobacco Use Types Packs/Day [...] care, and heating? Not very hard 11/03/2023 [facility] [place] of Occupat ional Health - Occupational Stress [...] slept in a long term (including now)? No 11/03/2023 Sex and Gender [...] st Contact Info) Description 10/27/2024 10:30 AM STOCK PREPARATION SUPERVISOR Appointment [facility] [address] [place] [address] Hussain Carias MD [address] [place] [phone] Britni Winston, PABaronC [address] [place] [address] 11/17/2024 9:00 AM STOCK PREPARATION SUPERVISOR Office Visit [facility] - Ophthalmology [address] [place] [phone] Song Hobson MD [address] [place] [address] [place] [address] documented as of this encounter Visit Diagnoses Not on filedocumented in this encounter Care Teams Garment Sewer Hand Relationship Specialty Start Date End Date Nilam Mayers MD [address] [place] [phone] PCP - General Family Medicine 09/04/23 04/18/24 documented as of this encounter
--- OUTSIDE RECORDS SUMMARY | 2024-08-31 21:29 | XMS_ITS | Encounter Summary ---
Author Organization [facility] Address [address] [place], [place] [address] [address] Care Team Providers Care Cnc Supervisor Name Role Phone Nilam Mayers MD Primary Care Provider +1- [phone] Encounter Details Date Type Department Care Team (Late st Contact Info) Description 11/26/2023 Orders Only [facility] [address] [place] [address] Remington Stafford MD [address] [facility] OF HEMATOLOGY & MEDICAL ONCOLOGY [place], [place] [phone] Social History Tobacco Use Types Packs/Day Years [...] medical care, and heating? Patient declined 12/01/2023 [facility] [place] of Occupat ional Health - Occupational Stress [...] Contact Info) Description 10/27/2024 10:30 AM DIRECTOR HARDWARE Appointment [facility] [address] [place] [address] Hussain Carias MD [address] [place] [phone] Britni Winston PA-C [address] [place] [address] 11/17/2024 9:00 AM DIRECTOR HARDWARE Office Visit [facility] - Ophthalmology [address] [place] [phone] Song Hobson MD [facility] [place] [address] documented as of this encounter Visit Diagnoses Not on filedocumented in this encounter Care Teams Cnc Supervisor Relationship Specialty Start Date End Date Nilam Mayers MD [address] [place] [phone] PCP - General Family Medicine 09/04/23 04/18/24 documented as of this encounter
--- OUTSIDE RECORDS SUMMARY | 2024-08-31 21:29 | XMS_ITS | Encounter Summary ---
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) Abnormal imaging of central nervous system Procedures CT HEAD WO CONTRAST Dori Muñiz APRN-CNP [address] [facility] [address] [place] [address] [facility] [address] [facility] [place] [address] Referral ID Status Reason Start Date Expiration Date Visits Re quested Visits Authorized [id number] Closed 11/10/2023 11/09/2024 2 2 MECHANIC Reason for Visit * Radiology Services (Routine) - Closed Specialty Diagnoses / Procedures Referred By Contac t Referred To Contact CT Scan Diagnoses 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) Abnormal imaging of central nervous system Procedures CT HEAD WO CONTRAST Dori Muñiz APRN-CNP [address] [facility] [address] [place] [address] [facility] [address] [place] [address] Referral ID Status Reason Start Date Expiration Date Visits Re quested Visits Authorized [id number] Closed 11/10/2023 11/09/2024 2 2 Encounter Details Date Type Department Care Team (Latest Contact Info) Description 11/19/2023 8:58 AM PLOW MECHANIC - 11/19/2023 11:59 PM PLOW MECHANIC Hospital Encounter SL CAT SCAN [address] [place] [address] Dori Muñiz, ZACH-CUSTOMER CARE MANAGER [address] [facility] [address] [place] [address] Discharge Disposition: Home or Self [...] care, and heating? Not very hard 11/03/2023 [facility] [place] of Occupat ional Health - Occupational Stress [...] 2 times daily 60 tablet 1 10/17/2023 Blood Pressure Monitoring (Blood Pressure Monitor/M Cuff) MISC Use 1 Units once daily 1 Each 11/19/2023 11/21/2023 levoFLOXacin (Levaquin) 500 MG tablet Take 1 [...] 11/04/2023 12/06/2023 posaconazole (Noxafil) 100 MG tabletIndications:Ac nenana myeloid leukemia in remission (HCC) Take 3 (three) tablets by mouth daily with dinner 90 tablet 5 11/03/2023 12/15/2023 potassium chloride ER 10 MEQ tablet Take 2 (two) tablets by mouth once daily 30 tablet 3 11/10/2023 12/15/2023 prochlorperazine (Compazine) 10 MG tabletIndications:Ac nenana myeloid leukemia in remission (HCC) Take 1 (one) tablet by mouth every 6 hours as needed for Nausea/Vomiting 30 tablet 11 11/04/2023 12/06/2023 valACYclovir (Valtrex) 500 MG tabletIndications:Ac nenana myeloid leukemia in remission (HCC) Take 1 (one) tablet by mouth 2 times daily 60 tablet 11 11/03/2023 08/23/2024 documented as of this encounter Plan of Treatment Upcoming Encounters Date Type Department Care Team (Late st Contact Info) Description 10/27/2024 10:30 AM PLOW MECHANIC Appointment [facility] [address] [place] [address] Hussain Carias MD [address] [place] [phone] Britni Winston PA-Lindsay [address] [place] [address] 11/17/2024 9:00 AM PLOW MECHANIC Office Visit [facility] - Ophthalmology [address] [place] [address] Song Hobson MD [address] [place] [address] [place] [phone] documented as of this encounter Procedures Procedure Name Priority Date/Time Associated Diagnosis Comments CT HEAD WO CONTRAST Routine 11/19/2023 9 :09 AM PLOW MECHANIC 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 Interval resolution of a small amount of subarachnoid hemorrhage in the right central sulcus. No new hemorrhage. > Interpreting Provider: Romie Sanchez MD on 11/19/2023 11:32 AM Narrative 11/19/2023 11:32 AM PLOW MECHANIC PROCEDURE: ??CT HEAD WO CONTRAST, DATE/TIME OF EXAM: ??11/19/2023 9:10 AM, LOCATION ??[facility] INDICATION: C95.00: 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 ([facility]) R90.89: Abnormal imaging of central nervous system ADDITIONAL CLINICAL INFORMATION: Ordering Provider Reason For Exam: ??fu Technologist Note: Additional: TECHNIQUE: CT of the head was performed without contrast according to standard protocol. CONTRAST: COMPARISON: 10/01/2023. FINDINGS: Interval resolution of a tiny amount of subarachnoid hemorrhage in the right central sulcus. No new hemorrhage. No acute intracranial hemorrhage or intra- or extra-axial fluid collections are identified. The ventricles are of normal size, shape, and morphology. The basal cisterns are patent. No mass effect or midline shift is seen. The mejia-white matter differentiation is normal. The visualized portions of the orbits, paranasal sinuses, and mastoids appear normal. No acute calvarial fracture is identified. Procedure Note Romie Sanchez MD - 11/19/2023 PROCEDURE: CT HEAD WO CONTRAST, DATE/TIME OF EXAM: 11/19/2023 9:10 AM, LOCATION [facility] INDICATION: C95.00: 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 ([facility]) R90.89: Abnormal imaging of central nervous system ADDITIONAL CLINICAL INFORMATION: Ordering Provider Reason For Exam: fu Technologist Note: Additional: TECHNIQUE: CT of the head was performed without contrast according to standard protocol. CONTRAST: COMPARISON: 10/01/2023. FINDINGS: Interval resolution of a tiny amount of subarachnoid hemorrhage in the right central sulcus. No new hemorrhage. No acute intracranialhemorrhage or intra- or extra-axial fluid collections are identified. Theventricles are of normal size, shape, and morphology. The basal cisterns arepatent. No mass effect or midline shift is seen. The mejia-white matter differentiation is normal. The visualized portions of the orbits, paranasal sinuses, and mastoids appear normal. No acute calvarial fracture is identified. IMPRESSION: 1. Interval resolution of a small amount of subarachnoid hemorrhage inthe right central sulcus. No new hemorrhage. 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
--- OUTSIDE RECORDS SUMMARY | 2024-08-31 21:29 | XMS_ITS | Encounter Summary ---
Author Organization [facility] Address [address] [place] [address] [place] [address] Care Team Providers Care General Purchasing Agent Name Role Phone Nilam Mayers MD Primary Care Provider +1- [phone] Encounter Details Date Type Department Care Team (Latest Contact Info) Description 11/24/2023 Travel Social History Tobacco Use Types Packs/Day [...] care, and heating? Not very hard 11/03/2023 [facility] [place] of Occupat ional Health - Occupational Stress [...] st Contact Info) Description 10/27/2024 10:30 AM QUALITY IMPROVEMENT ENGINEER [facility]ointment [facility] [address] [place] [address] Hussain Carias MD [address] [place] [phone] Britni Winston, PABaronC [address] [place] [address] 11/17/2024 9:00 AM QUALITY IMPROVEMENT ENGINEER Office Visit [facility] - Ophthalmology [address] [place] [phone] Song Hobson MD [address] [place] [address] [place] [address] documented as of this encounter Visit Diagnoses Not on filedocumented in this encounter Care Teams General Purchasing Agent Relationship Specialty Start Date End Date Nilam Mayers MD [address] [place] [phone] PCP - General Family Medicine 09/04/23 04/18/24 documented as of this encounter
--- OUTSIDE RECORDS SUMMARY | 2024-08-31 21:29 | XMS_ITS | Encounter Summary ---
Author Organization [facility] Address [address] [place] [address] [place] [address] Care Team Providers Care Cupola Man Name Role Phone Nilam Mayers MD Primary Care Provider +1- [phone] Encounter Details Date Type Department Care Team (Latest Contact Info) Description 11/12/2023 Travel Social History Tobacco Use Types Packs/Day [...] care, and heating? Not very hard 11/03/2023 [facility] [place] of Occupat ional Health - Occupational Stress [...] slept in a chcf (including now)? No 11/03/2023 Sex and Gender [...] st Contact Info) Description 10/27/2024 10:30 AM ENGINEER Appointment [facility] [address] [place] [address] Hussain Carias MD [address] [place] [phone] Britni Winston, PABaronC [address] [place] [address] 11/17/2024 9:00 AM ENGINEER Office Visit [facility] - Ophthalmology [address] [place] [phone] Song Hobson MD [address] [place] [address] DE[place] [address] documented as of this encounter Visit Diagnoses Not on filedocumented in this encounter Care Teams Cupola Man Relationship Specialty Start Date End Date Nilam Mayers MD [address] [place] [phone] PCP - General Family Medicine 09/04/23 04/18/24 documented as of this encounter
--- OUTSIDE RECORDS SUMMARY | 2024-08-31 21:29 | XMS_ITS | Encounter Summary ---
Author Organization [facility] Address [address] [place], [place] [address] [address] Care Team Providers Care Frame Expander Name Role Phone Nilam Mayers MD Primary Care Provider +1- [phone] Encounter Details Date Type Department Care Team (Latest Contact Info) Description 11/26/2023 9:28 AM CDT - 11/26/2023 11:59 PM T Hospital Encounter [facility] [address] [place] [address] Hussain Carias MD [address] [place] [address] Britni Winston, PABaronC [address] [place] [address] Discharge Disposition: Home or Self [...] care, and heating? Not very hard 11/03/2023 [facility] [place] of Occupat ional Health - Occupational Stress [...] Sign Reading Time Taken Comments Blood Pressure 143/92 11/26/2023 9:41 AM CDT Pulse 112 11/26/2023 9:41 AM CDT Temperature 36.6 ??C (97.9 ??F) 11/26/2023 9:41 AM CD T Respiratory Rate 20 11/26/2023 9:41 AM CDT Oxygen Saturation 100% 11/26/2023 9:41 AM CDT Inhaled Oxygen Concentration - - Weight 109.6 kg (241 lb 9.6 oz) 11/26/2023 9:41 AM CDT Height - - Body Mass Index 44.19 11/19/2023 9:31 AM CORE DROPPER documented in this encounter Functional Status Functional [...] 11/04/2023 12/06/2023 posaconazole (Noxafil) 100 MG tabletIndications:Ac agdaagux myeloid leukemia in remission (HCC) Take 3 (three) tablets by mouth daily with dinner 90 tablet 5 11/03/2023 12/15/2023 potassium chloride ER 10 MEQ tablet Take 2 (two) tablets by mouth once daily 30 tablet 3 11/10/2023 12/15/2023 prochlorperazine (Compazine) 10 MG tabletIndications:Ac agdaagux myeloid leukemia in remission (HCC) Take 1 (one) tablet by mouth every 6 hours as needed for Nausea/Vomiting 30 tablet 11 11/04/2023 12/06/2023 valACYclovir (Valtrex) 500 MG tabletIndications:Ac agdaagux myeloid leukemia in remission (HCC) Take 1 (one) tablet by mouth 2 times daily 60 tablet 11 11/03/2023 08/23/2024 documented as of this encounter Plan of Treatment Upcoming Encounters Date Type Department Care Team (Late st Contact Info) Description 10/27/2024 10:30 AM CORE DROPPER Appointment [facility] [address] [place] [address] Hussain Carias MD [address] [place] [phone] Britni Winston PA-C [address] [place], [place] [phone] 11/17/2024 9:00 AM CORE DROPPER Office Visit [facility] - Ophthalmology [address] [place] [phone] Song Hobson MD [address] [place] [address] [place] [address] documented as of this encounter Procedures Procedure Name Priority Date/Time Associated Diagnosis Comments URIC ACID BLOOD STAT 11/26/2023 9:46 AM CDT Acute myeloid leukemia in remission (HCC) DIFFERENTIAL MANUAL STAT 11/26/2023 9 :46 AM CDT Acute myeloid leukemia in remission (HCC) CBC W AUTO DIFFERENTIAL STAT 11/26/2023 9:46 AM CDT Acute myeloid leukemia in remission (HCC) COMPREHENSIVE METABOLIC PANEL STAT 11/26/2023 9:46 AM CDT Acute myeloid leukemia in remission (HCC) PHOSPHORUS BLOOD STAT 11/26/2023 9:46 AM CDT Acute myeloid leukemia in remission (HCC) MAGNESIUM BLOOD STAT 11/26/2023 9:46 AM CDT Acute myeloid leukemia in remission (HCC) LDH BLOOD STAT 11/26/2023 9:46 AM CDT Acute myeloid leukemia in remission (HCC) documented in this encounter Results * T4 FREE (11/28/2023 8:37 AM CDT) Pathologist [facility] T4 Free 0.9 0.7 - 1.5 ng/dL 11/28/2023 10:03 AM CDT [facility] Blood BLOOD SPECIMEN / Unknown Venipuncture / Unknown 11/28/2023 8:37 AM CDT 11/28/2023 8:46 AM CDT Britni Winston PA-C LAB - CHEMISTRY JON NAIDU Performing Organization Address City/[facility]/ZIP Co de Phone Number [address] [address], [facility] [phone] * TSH (11/28/2023 8:37 AM CDT) [facility] TSH 1.840 0.350 - 4.940 uIU/mL 11/28/2023 10:03 AM CDT [facility] Blood BLOOD SPECIMEN / Unknown Venipuncture / Unknown 11/28/2023 8:37 AM CDT 11/28/2023 8:46 AM CDT Britni Winston PA-C LAB - CHEMISTRY ORDAzul NAIDU [address] [address], [facility] [phone] * (ABNORMAL) DIFFERENTIAL MANUAL (11/26/2023 9:46 AM CDT) [facility] Neutrophil % 48 41 - 74 % 11/26/2023 11:06 AM CDT [facility] Lymphocyte % 25 17 - 47 % 11/26/2023 11:06 AM CDT [facility] Monocyte % 26(H) 3 - 11 % 11/26/2023 11:06 AM [facility] Myelocyte % 1(H) 0% % 11/26/2023 11:06 AM [facility] Neutrophil Absolute 1.44(L) 1.60 - 7.50 x10E9/L 11/26/2023 11:06 AM [facility] Lymphocyte Absolute 0.75(L) 1.00 - 4.40 x10E9/L 11/26/2023 11:06 AM [facility] Monocyte Absolute 0.78 0.15 - 1.00 x10E9/L 11/26/2023 11:06 AM [facility] RBC Morphology REVIEWED 11/26/2023 11:06 AM [facility] Microcytosis MANY(A) (none) 11/26/2023 11:06 AM [facility] Stomatocytes MODERATE(A) (none) 11/26/2023 11:06 AM [facility] Blood BLOOD SPECIMEN / Unknown Venipuncture / Unknown 11/26/2023 9:46 AM CDT 11/26/2023 10:00 AM CDT Britni Winston PA-C LAB - HEMATOLOGY ORD ERABLES [address] [address], [facility] [phone] * URIC ACID BLOOD (11/26/2023 9:46 AM CDT) Uric Acid 3.8 2.6 - 6.0 mg/dL 11/26/2023 10:39 AM T [facility] Blood BLOOD SPECIMEN / Unknown Venipuncture / Unknown 11/26/2023 9:46 AM CDT 11/26/2023 10:00 AM CDT Britni Winston PA-C LAB - CHEMISTRY ORDE RABQI [address] [address], [place] [phone] * (ABNORMAL) LDH BLOOD (11/26/2023 9:46 AM CDT) [facility] LDH Total 261(H) 125 - 243 Units/L 11/26/2023 10:39 AM [facility] Blood BLOOD SPECIMEN / Unknown Venipuncture / Unknown 11/26/2023 9:46 AM CDT 11/26/2023 10:00 AM CDT Britni Winston PA-C LAB - CHEMISTRY JON NAIDU [facility] [address] [place] [address], [facility] [phone] * (ABNORMAL) CBC WITH DIFFERENTIAL (11/26/2023 9:46 AM CDT) [facility] WBC 3.0(L) 4.0 - 10.7 x10E9/L 11/26/2023 11:06 AM [facility] RBC Count 2.81(L) 3.90 - 5.20 x10E12/L 11/26/2023 11:06 AM [facility] Hemoglobin 8.2(L) 11.9 - 15.8 g/dL 11/26/2023 11:06 AM [facility] Hematocrit 22.4(L) 34.8 - 46.1 % 11/26/2023 11:06 AM [facility] MCV 79.7(L) 80.0 - 98.0 fL 11/26/2023 11:06 AM [facility] MCH 29.2 26.7 - 33.6 pg 11/26/2023 11:06 AM [facility] MCHC 36.6(H) 31.7 - 36.3 g/dL 11/26/2023 11:06 AM [facility] RDW-CV 13.3 11.3 - 14.8 % 11/26/2023 11:06 AM [facility] Platelet Count 45(L) 150 - 420 x10E9/L 11/26/2023 11:06 AM [facility] MPV 11.5(H) 7.8 - 11.4 fL 11/26/2023 11:06 AM T [facility] Preliminary Absolute Neutrophil 1.09(L) 1.60 - 7.50 x10E9/L 11/26/2023 11:06 AM [facility] Comment:Preliminary ANC pend ing manual confirmation NRBC 1.0(H) <=0.0 /100 WBC 11/26/2023 11:06 AM T [facility] Blood BLOOD SPECIMEN / Unknown Venipuncture / Unknown 11/26/2023 9:46 AM CDT 11/26/2023 10:00 AM CDT Britni Winston PA-C LAB - HEMATOLOGY ORD ERABLES Performing Organization Address City/[facility]/ZIP Co de Phone Number [address] [address], [facility] [phone] * MAGNESIUM BLOOD (11/26/2023 9:46 AM CDT) Magnesium 1.7 1.6 - 2.6 mg/dL 11/26/2023 10:39 AM T [facility] Blood BLOOD SPECIMEN / Unknown Venipuncture / Unknown 11/26/2023 9:46 AM CDT 11/26/2023 10:00 AM CDT Britni Winston PA-C LAB - CHEMISTRY ORDE RABQI Performing Organization Address [facility]/ZIP Co de Phone Number [address] [address], [facility] [phone] * (ABNORMAL) COMPREHENSIVE METABOLIC PANEL (11/26/2023 9:46 AM CDT) BUN 7 7 - 26 mg/dL 11/26/2023 10:39 AM T [facility] Creatinine 0.63 0.56 - 0.96 mg/dL 11/26/2023 10:39 AM T [facility] Sodium 139 136 - 145 mmol/L 11/26/2023 10:39 AM T [facility] Potassium 3.3(L) 3.5 - 4.5 mmol/L 11/26/2023 10:39 AM [facility] Chloride 110(H) 98 - 107 mmol/L 11/26/2023 10:39 AM [facility] CO2 20(L) 22 - 29 mmol/L 11/26/2023 10:39 AM [facility] Glucose 175(H) 70 - 115 mg/dL 11/26/2023 10:39 AM [facility] Calcium 9.3 8.4 - 10.2 mg/dL 11/26/2023 10:39 AM [facility] Protein Total 6.5 6.0 - 8.3 g/dL 11/26/2023 10:39 AM [facility] Albumin 3.0(L) 3.4 - 5.0 g/dL 11/26/2023 10:39 AM [facility] Bilirubin Total 0.4 0.2 - 1.2 mg/dL 11/26/2023 10:39 AM [facility] Alkaline Phosphatase 78 40 - 150 U/L 11/26/2023 10:39 AM [facility] ALT 53 5 - 55 U/L 11/26/2023 10:39 AM [facility] AST 25 5 - 34 U/L 11/26/2023 10:39 AM [facility] Anion Gap 9 6 - 16 11/26/2023 10:39 AM [facility] BUN/Creatinine Ratio 11 7 - 23 11/26/2023 10:39 AM [facility] Osmolality Calculated 290 275 - 295 mOsm/kg 11/26/2023 10:39 AM [facility] Albumin/Globulin Ratio 0.9(L) 1.1 - 2.3 11/26/2023 10:39 AM [facility] eGFR by CKD-EPI >90 >=90 mL/min/1.7 3 m2 11/26/2023 10:39 AM [facility] Blood BLOOD SPECIMEN / Unknown Venipuncture / Unknown 11/26/2023 9:46 AM T 11/26/2023 10:00 AM T Britni Winston PA-C LAB - CHEMISTRY ORDE ELYSIA [facility] Organization Address City/State/ZIP Co de Phone Number [facility] [address] [place] [address], [place] [phone] * (ABNORMAL) PHOSPHORUS BLOOD (11/26/2023 9:46 AM CDT) Phosphorus 2.6(L) 2.9 - 5.1 mg/dL 11/26/2023 10:39 AM CDT [facility] Blood BLOOD SPECIMEN / Unknown Venipuncture / Unknown 11/26/2023 9:46 AM CDT 11/26/2023 10:00 AM CDT Britni Winston PA-C LAB - CHEMISTRY JON NAIDU [address] [address], [facility] [phone] documented in this encounter Visit Diagnoses Diagnosis Thyroid nodule- Primary 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 $ Given 11/26/2023 10:50 AM CDT 20 mEq documented in this encounter Care Teams Frame Expander Relationship Specialty Start Date End Date Nilam Mayers MD [address] [place] [phone] PCP - General Family Medicine 09/04/23 04/18/24 documented as of this encounter
--- OUTSIDE RECORDS SUMMARY | 2024-08-31 21:29 | XMS_ITS | Encounter Summary ---
Author Organization 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) Abnormal imaging of central nervous system Dori Muñiz APRN-CNP [address] [facility] [address] [place] [address] Stas Lomeli MD [address] [place] [address] [address] [place] [address] Referral ID Status Reason Start Date Expiration Date V isits Requested Visits Authorized [id number] Closed Discharge Follow-up 10/01/2023 09/30/2024 1 1 Encounter Details Date Type Department Care Team (Late st Contact Info) Description 11/19/2023 9:45 AM VOCATIONAL CASE MANAGER Office Visit [facility] - Neurosurgery [address] [place] [address], [place] [address] Dori Muñiz APRN-CNP [address] [facility] [address] [place] [address] Stas Lomeli MD [address] [facility] [address] [place] [address] SAH (subarachnoid hemorrhage) (HCC) (Primary Dx) Social History Tobacco Use Types Packs/Day Years Used Date Smoking Tobacco: Former Cigarettes 1 6 2 - 2010 Smokeless Tobacco: Never Tobacco Cessation:Counseling [...] care, and heating? Not very hard 11/03/2023 [facility] - [...] slept in a mcc (including now)? No 11/03/2023 Sex and Gender Information Value Date Recorded Sex Assigned at Not on file Gender Identity Female 02/13/2024 1:12 PM CDT Sexual Orientation Not on file documented as of this encounter Last Filed Vital Signs Vital Sign Reading Time Taken Comments Blood Pressure 129/93 11/19/2023 9:31 AM VOCATIONAL CASE MANAGER Pulse 120 11/19/2023 9:31 AM VOCATIONAL CASE MANAGER Temperature 37 ??C (98.6 ??F) 11/19/2023 9:31 AM VOCATIONAL CASE MANAGER Respiratory Rate 18 11/19/2023 9:31 AM VOCATIONAL CASE MANAGER Oxygen Saturation 98% 11/19/2023 9:31 AM VOCATIONAL CASE MANAGER Inhaled Oxygen Concentration - - Weight 110.7 kg (244 lb) 11/19/2023 9:31 AM VOCATIONAL CASE MANAGER Height 157.5 cm (5' 2 ) 11/19/2023 9:31 AM VOCATIONAL CASE MANAGER Body Mass Index 44.63 11/19/2023 9:31 AM VOCATIONAL CASE MANAGER documented in this encounter Functional Status Functional [...] No 11/03/2023 documented as of this encounter Patient Instructions * Patient Instructions* Angelika Harvey APRN-CNP - 11/19/2023 10:00 AM VOCATIONAL CASE MANAGER Follow up with Dr. Lomeli as needed For any questions call Rocio at [phone] TIONAL CASE MANAGER documented in this encounter Progress Notes * Angelika Harvey APRN-CNP - 11/19/2023 9:38 AM CST Neurosurgery Clinic Note Date: 11/19/2023 Time: 9:39 AM History of Present Illness Sarah Mckeon is a 38 year old female with past medical history including AML. During workup for extent of disease, CT head obtained which revealed incidental right central sulcus small volume SAH. No prior trauma. Patient denies headache, nausea, vomiting, numbness, tingling, weakness, or seizures. The patient's medications include no anticoagulation or antiplatelets. After reviewing of CTH and CTA, NSGY determined that no acute surgical intervention was required and recommended OP f/u. Here today for routine follow up with repeat imaging. She is doing well, no complaints of headaches, seizures, weakness, n/v. Scheduled to have next chemotherapy treatment middle of November. Review of Systems Cardiac-nil Resp-nil GI-nil -nil Exam BP 129/93 (BP SITE: LEFT ARM, BP POSITION: SITTING, BP Cuff Size: A) Pulse (!) 120 Temp 98.6 ??F (37 ??C) Resp 18 Ht 1.575 m (5' 2 ) Wt 110.7 kg (244 lb) SpO2 98% Neuro: alert, oriented x 3 (name, place date), speech clear, fluent, ou4r, eomi, face symmetric, tongue midline, no drift, strength 5/5 in major muscle groups, sensation intact, normal gait Imaging CT head wo contrast on 11/19/23 Independently reviewed, resolution of SAH IMPRESSION: ?? 1. Interval resolution of a small amount of subarachnoid hemorrhage in the right central sulcus. No new hemorrhage. ?? A/P Mora Mckeon is a 38 year old female with past medical history including AML. During workup for extent of disease, CT head obtained which revealed incidental right central sulcus small volume SAH. Noprior trauma. Patient denies headache, nausea, vomiting, numbness, tingling, weakness, or seizures.Repeat CT head shows resolution of SAH. Return as needed. Angelika Harvey, ZACH-CHU 9:39 AM 11/19/2023 Allergies as of 11/19/2023 ??? (No Known Allergies) Current Outpatient Medications on File Prior to Visit Medication Sig Dispense Refill ??? Carboxymethylcellulose Sodium [...] current facility-administered medications on file prior to visit. Past Medical History: Diagnosis Date ??? NEGATIVE PAST MEDICAL HISTORY - SEE PROBLEM LIST Past Surgical History: Procedure Laterality Date ??? Section ??? Cholecystectomy ??? KIDNEY STONES, REMOVAL Family History Family history unknown: Yes Social History Socioeconomic History ??? Marital status: [...] (Non-Medical): No Stress: Stress Concern Present (11/03/2023) [facility] [place] - Occupational Stress Questionnaire ??? Feeling of Stress : To some extent Housing Stability: Low Risk (11/03/2023) Housing Stability Vital Sign ??? Unable to Pay for Housing in the Last Year: No ??? Number of Places Lived in the Last Year: 1 ??? 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) Pancytopenia (CMS-HCC) Tonsillitis Acute hypoxic respiratory failure (CMS-HCC) Pulmonary edema IIH (idiopathic intracranial hypertension) Vaginal bleeding Anemia Hypernatremia Hypophosphatemia TIONAL CASE MANAGER documented in this encounter Plan of Treatment Upcoming Encounters Date Type Department Care Team (Late st Contact Info) Description 10/27/2024 10:30 AM VOCATIONAL CASE MANAGER Appointment [facility] [address] [place] [address] Hussain Carias MD [address] [place] [phone] Britni Winston PA-C [address] [place] [address] 11/17/2024 9:00 AM VOCATIONAL CASE MANAGER Office Visit [facility] - Ophthalmology [address] [place] [phone] Song Hobson MD [facility] [place] [address] Scheduled Referrals Name Type Priority Associated Diagnoses Orde r Schedule Ref to Neurosurgery [facility] Referral Routine 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
--- OUTSIDE RECORDS SUMMARY | 2024-08-31 21:29 | XMS_ITS | Encounter Summary ---
Author Organization [facility] Address [address] [place], [place] [address] [address] Care Team Providers Care Physical Therapy Coordinator Name Role Phone Nilam Mayers MD Primary Care Provider [phone]- [phone] Encounter Details Date Type Department Care Team (Latest Contact Info) Description 11/28/2023 8:27 AM CDT - 11/28/2023 11:59 PM T Hospital Encounter [facility] [address] [place] [address] Hussain Carias MD [address] [place] [address] Britni Winston, PABaronC [address] [place] [address] Discharge Disposition: Home or Self [...] care, and heating? Not very hard 11/03/2023 [facility] of Occupat ional Health - Occupational Stress [...] slept in a fdc (including now)? No 11/03/2023 Sex and Gender Information Value Date Recorded Sex Assigned at Not on file Gender Identity Female 02/13/2024 1:12 PM CDT Sexual Orientation Not on file documented as of this encounter Last Filed Vital Signs Vital Sign Reading Time Taken Comments Blood Pressure 140/87 11/28/2023 8:34 AM CDT Pulse 116 11/28/2023 8:34 AM CDT Temperature 36.9 ??C (98.4 ??F) 11/28/2023 8:34 AM CD T Respiratory Rate 20 11/28/2023 8:34 AM CDT Oxygen Saturation 100% 11/28/2023 8:34 AM CDT Inhaled Oxygen Concentration - - Weight 110.6 kg (243 lb 12.8 oz) 11/28/2023 8:34 AM CDT Height - - Body Mass Index 44.59 11/19/2023 9:31 AM ENTRY LEVEL FINANCIAL ANALYST documented in this encounter Functional Status Functional [...] st Contact Info) Description 10/27/2024 10:30 AM ENTRY LEVEL FINANCIAL ANALYST Appointment [facility] [address] [place] [address] Hussain Carias MD [address] [place] [phone] Britni Winston PA-C [address] [place] [address] 11/17/2024 9:00 AM ENTRY LEVEL FINANCIAL ANALYST Office Visit [facility] - Ophthalmology [address] [place] [phone] Song Hobson MD [address] [place] [address] DE[place] [phone] documented as of this encounter Procedures Procedure Name Priority Date/Time Associated Diagnosis Comments URIC ACID BLOOD STAT 11/28/2023 8:37 AM CDT Acute myeloid leukemia in remission (HCC) TYPE + SCREEN PANEL STAT 11/28/2023 8 :37 AM CDT Acute myeloid leukemia in remission (HCC) CBC W AUTO DIFFERENTIAL STAT 11/28/2023 8:37 AM CDT Acute myeloid leukemia in remission (HCC) COMPREHENSIVE METABOLIC PANEL STAT 11/28/2023 8:37 AM CDT Acute myeloid leukemia in remission (HCC) PHOSPHORUS BLOOD STAT 11/28/2023 8:37 AM CDT Acute myeloid leukemia in remission (HCC) MAGNESIUM BLOOD STAT 11/28/2023 8:37 AM CDT Acute myeloid leukemia in remission (HCC) LDH BLOOD STAT 11/28/2023 8:37 AM CDT Acute myeloid leukemia in remission (HCC) TSH Routine 11/28/2023 8:37 AM CDT Thyroid nodule T4 FREE Routine 11/28/2023 8:37 AM CDT Thyroid nodule documented in this encounter Results * T4 FREE (11/28/2023 8:37 AM CDT) T4 Free 0.9 0.7 - 1.5 ng/dL 11/28/2023 10:03 AM CDT [facility] Blood BLOOD SPECIMEN / Unknown Venipuncture / Unknown 11/28/2023 8:37 AM CDT 11/28/2023 8:46 AM CDT Britni Winston PA-C LAB - CHEMISTRY JON NAIDU [address] [address], [facility] [phone] * TSH (11/28/2023 8:37 AM CDT) TSH 1.840 0.350 - 4.940 uIU/mL 11/28/2023 10:03 AM CDT [facility] Blood BLOOD SPECIMEN / Unknown Venipuncture / Unknown 11/28/2023 8:37 AM CDT 11/28/2023 8:46 AM CDT Britni Winston PA-C LAB - CHEMISTRY ORDE ELYSIA [facility] [address] [place] [address], [place] [phone] * TYPE + SCREEN PANEL (11/28/2023 8:37 AM CDT) Pathologist [facility] Antibody Screen NEG 9:21 AM CDT [facility] BLOOD BANK LAB ABO Rh O POS 11/28/2023 9:21 AM CDT [facility] B[facility]OD [facility] LAB Blood Bank BLOOD SPECIMEN / Unknown Venipuncture / Unknown 11/28/2023 8:37 AM CDT 11/28/2023 8:45 AM CDT Britni Winston PA-C LAB - BLOOD BANK ORD ERABLES Performing Organization Address City/Va Hospital/ZIP Co de Phone Number [facility] BLOOD BANK LAB [address] [place] [address], [place] [phone] * URIC ACID BLOOD (11/28/2023 8:37 AM CDT) Pathologist [facility] Uric Acid 4.4 2.6 - 6.0 mg/dL 11/28/2023 9:13 AM CDT [facility] Blood BLOOD SPECIMEN / Unknown Venipuncture / Unknown 11/28/2023 8:37 AM CDT 11/28/2023 8:46 AM CDT Britni Winston PA-C LAB - CHEMISTRY ORDAzul NAIDU Performing Organization Address City/Va Hospital/ZIP Co de Phone Number [facility] [address] [place] [phone], [place] [phone] * (ABNORMAL) LDH BLOOD (11/28/2023 8:37 AM CDT) [facility] LDH Total 308(H) 125 - 243 Units/L 11/28/2023 9:13 AM [facility] Blood BLOOD SPECIMEN / Unknown Venipuncture / Unknown 11/28/2023 8:37 AM CDT 11/28/2023 8:46 AM CDT Britni Winston PA-C LAB - CHEMISTRY ORDE ELYSIA [facility] Organization Address City/State/ZIP Co de Phone Number [facility] [address] [place] [address], [facility] [phone] * (ABNORMAL) CBC WITH DIFFERENTIAL (11/28/2023 8:37 AM CDT) [facility] WBC 3.7(L) 4.0 - 10.7 x10E9/L 11/28/2023 9:26 AM [facility] RBC Count 2.79(L) 3.90 - 5.20 x10E12/L 11/28/2023 9:26 AM [facility] Hemoglobin 7.9(L) 11.9 - 15.8 g/dL 11/28/2023 9:26 AM [facility] Hematocrit 22.2(L) 34.8 - 46.1 % 11/28/2023 9:26 AM [facility] MCV 79.6(L) 80.0 - 98.0 fL 11/28/2023 9:26 AM [facility] MCH 28.3 26.7 - 33.6 pg 11/28/2023 9:26 AM [facility] MCHC 35.6 31.7 - 36.3 g/dL 11/28/2023 9:26 AM [facility] RDW-CV 13.9 11.3 - 14.8 % 11/28/2023 9:26 AM [facility] Platelet Count 46(L) 150 - 420 x10E9/L 11/28/2023 9:26 AM [facility] MPV 11.0 7.8 - 11.4 fL 11/28/2023 9:26 AM [facility] Preliminary Absolute Neutrophil 1.48(L) 1.60 - 7.50 x10E9/L 11/28/2023 9:26 AM [facility] Comment:Preliminary ANC pend ing manual confirmation Neutrophil % 39.9(L) 41.0 - 74.0 % 11/28/2023 9:26 AM [facility] Lymphocyte % 20.2 17.0 - 47.0 % 11/28/2023 9:26 AM [facility] Monocyte % 35.3(H) 3.0 - 11.0 % 11/28/2023 9:26 AM [facility] Eosinophil % 0.0 0.0 - 7.0 % 11/28/2023 9:26 AM [facility] Basophil % 0.0 0.0 - 1.6 % 11/28/2023 9:26 AM [facility] Immature Granulocytes % 4.6(H) 0.0 - 1.0 % 11/28/2023 9:26 AM [facility] Neutrophil Absolute 1.48(L) 1.60 - 7.50 x10E9/L 11/28/2023 9:26 AM [facility] Lymphocyte Absolute 0.75(L) 1.00 - 4.40 x10E9/L 11/28/2023 9:26 AM [facility] Monocyte Absolute 1.31(H) 0.15 - 1.00 x10E9/L 11/28/2023 9:26 AM [facility] Eosinophil Absolute 0.00 0.00 - 0.60 x10E9/L 11/28/2023 9:26 AM [facility] Basophil Absolute 0.00 0.00 - 0.13 x10E9/L 11/28/2023 9:26 AM [facility] NRBC 1.1(H) <=0.0 /100 WBC 11/28/2023 9:26 AM [facility] Blood BLOOD SPECIMEN / Unknown Venipuncture / Unknown 11/28/2023 8:37 AM CDT 11/28/2023 8:46 AM CDT Britni Winston PA-C LAB - HEMATOLOGY ORD ERABLES Performing Organization Address City/Va Hospital/ZIP Co de Phone Number [facility] [address] [place] [phone], [place] [phone] * MAGNESIUM BLOOD (11/28/2023 8:37 AM CDT) Magnesium 1.9 1.6 - 2.6 mg/dL 11/28/2023 9:13 AM T [facility] Blood BLOOD SPECIMEN / Unknown Venipuncture / Unknown 11/28/2023 8:37 AM CDT 11/28/2023 8:46 AM CDT Britni Winston PA-C LAB - CHEMISTRY ORDE RABLES Performing Organization Address [facility]/Va Hospital/ZIP Co de Phone Number [address] [address], [place] [phone] * (ABNORMAL) COMPREHENSIVE METABOLIC PANEL (11/28/2023 8:37 AM CDT) BUN 7 7 - 26 mg/dL 11/28/2023 9:13 AM [facility] Creatinine 0.69 0.56 - 0.96 mg/dL 11/28/2023 9:13 AM [facility] Sodium 142 136 - 145 mmol/L 11/28/2023 9:13 AM [facility] Potassium 3.4(L) 3.5 - 4.5 mmol/L 11/28/2023 9:13 AM [facility] Chloride 110(H) 98 - 107 mmol/L 11/28/2023 9:13 AM [facility] CO2 21(L) 22 - 29 mmol/L 11/28/2023 9:13 AM [facility] Glucose 152(H) 70 - 115 mg/dL 11/28/2023 9:13 AM [facility] Calcium 9.3 8.4 - 10.2 mg/dL 11/28/2023 9:13 AM [facility] Protein Total 6.5 6.0 - 8.3 g/dL 11/28/2023 9:13 AM [facility] Albumin 3.2(L) 3.4 - 5.0 g/dL 11/28/2023 9:13 AM [facility] Bilirubin Total 0.4 0.2 - 1.2 mg/dL 11/28/2023 9:13 AM [facility] Alkaline Phosphatase 79 40 - 150 U/L 11/28/2023 9:13 AM [facility] ALT 60(H) 5 - 55 U/L 11/28/2023 9:13 AM [facility] AST 36(H) 5 - 34 U/L 11/28/2023 9:13 AM [facility] Anion Gap 11 6 - 16 11/28/2023 9:13 AM [facility] BUN/Creatinine Ratio 10 7 - 23 11/28/2023 9:13 AM [facility] Osmolality Calculated 295 275 - 295 mOsm/kg 11/28/2023 9:13 AM [facility] Albumin/Globulin Ratio 1.0(L) 1.1 - 2.3 11/28/2023 9:13 AM [facility] eGFR by CKD-EPI >90 >=90 mL/min/1.7 3 m2 11/28/2023 9:13 AM [facility] Blood BLOOD SPECIMEN / Unknown Venipuncture / Unknown 11/28/2023 8:37 AM CDT 11/28/2023 8:46 AM T Britni Winston PA-C LAB - CHEMISTRY JON NAIDU [facility] Organization Address City/State/ZIP Co de Phone Number [facility] [address] [place] [phone], [facility] [phone] * PHOSPHORUS BLOOD (11/28/2023 8:37 AM CDT) Phosphorus 3.2 2.9 - 5.1 mg/dL 11/28/2023 9:13 AM [facility] Blood BLOOD SPECIMEN / Unknown Venipuncture / Unknown 11/28/2023 8:37 AM CDT 11/28/2023 8:46 AM CDT Britni Winston PA-C LAB - CHEMISTRY JON Alonzo Organization Address City/State/[facility] Co de Phone Number [address] [phone] [phone] documented in this encounter Visit Diagnoses Diagnosis 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 Thyroid nodule Nontoxic uninodular goiter documented in this encounter Care Teams Physical Therapy Coordinator Relationship Specialty Start Date End Date Nilam Mayers MD [address] [place] [phone] PCP - General Family Medicine 09/04/23 04/18/24 documented as of this encounter
--- OUTSIDE RECORDS SUMMARY | 2024-08-31 21:29 | XMS_ITS | Encounter Summary ---
Author Organization [facility] Address [address] [place] [id number] Care Team Providers Care Inserting Press Operator Name Role Phone Nilam Mayers MD Primary Care Provider [phone] Encounter Details Date Type Department Care Team (Latest Contact Info) Description 11/10/2023 12:51 PM HEALTH OCCUPATIONS INSTRUCTOR - 11/10/2023 11:59 PM [facility] Hospital Encounter [facility] [address] [place] [address] Hussain Carias MD [address] [place] [address] Paula Carrillo APRN-CHU [address] [place] [address] Discharge Disposition: Home or Self Care Social [...] care, and heating? Not very hard 11/03/2023 [facility] [place] [facility] Occupat ional Health - Occupational Stress [...] slept in a residential (including now)? No 11/03/2023 Sex and Gender Information Value Date Recorded Sex Assigned at Not on file Gender Identity Female 02/13/2024 1:12 PM CDT Sexual Orientation Not on file documented as of this encounter Last Filed Vital Signs Vital Sign Reading Time Taken Comments Blood Pressure 115/68 11/10/2023 3:17 PM HEALTH OCCUPATIONS INSTRUCTOR Pulse 89 11/10/2023 3:17 PM HEALTH OCCUPATIONS INSTRUCTOR Temperature 36.9 ??C (98.5 ??F) 11/10/2023 3:17 PM CS T Respiratory Rate 18 11/10/2023 3:1 7 PM HEALTH OCCUPATIONS INSTRUCTOR Oxygen Saturation 100% 11/10/2023 3:17 PM HEALTH OCCUPATIONS INSTRUCTOR Inhaled Oxygen Concentration - - Weight 110.4 kg (243 lb 4.8 oz) 11/10/2023 1:00 PM HEALTH OCCUPATIONS INSTRUCTOR Height - - Body Mass Index 44.49 11/06/2023 2:31 PM HEALTH OCCUPATIONS INSTRUCTOR documented in this encounter Functional Status Functional [...] Contact Info) Description 10/27/2024 10:30 AM HEALTH OCCUPATIONS INSTRUCTOR Appointment [facility] [address] [place], [place] [id number] Hussain Carias MD [address] [place] [phone] Britni Winston, PABaronC [address] [place], [place] [phone] 11/17/2024 9:00 AM HEALTH OCCUPATIONS INSTRUCTOR Office Visit [facility] - Ophthalmology [address] [place] [phone] Song Hobson MD [facility] [place] [phone] documented as of this encounter Procedures Procedure Name Priority Date/Time Associated Diagnosis Comments PLATELET COUNT AUTO Routine 11/10/2023 3 :41 PM HEALTH OCCUPATIONS INSTRUCTOR Acute myeloid leukemia in remission (HCC) TRANSFUSE PLATELET PHERESIS UNIT(S) Routine 11/10/2023 2:56 PM HEALTH OCCUPATIONS INSTRUCTOR PREPARE PLATELET PHERESIS UNIT(S) Routine 11/10/2023 2:50 PM HEALTH OCCUPATIONS INSTRUCTOR RESPIRATORY PANEL WITH SARS-COV-2 BY PCR (STL) Routine 11/10/2023 1:26 PM HEALTH OCCUPATIONS INSTRUCTOR Viral upper respiratory tract infection TYPE + SCREEN PANEL STAT 11/10/2023 1 :12 PM HEALTH OCCUPATIONS INSTRUCTOR Acute myeloid leukemia in remission (HCC) DIFFERENTIAL MANUAL STAT 11/10/2023 1 :12 PM HEALTH OCCUPATIONS INSTRUCTOR Acute myeloid leukemia in remission (HCC) CBC W AUTO DIFFERENTIAL STAT 11/10/2023 1:12 PM HEALTH OCCUPATIONS INSTRUCTOR Acute myeloid leukemia in remission (HCC) COMPREHENSIVE METABOLIC PANEL STAT 11/10/2023 1:12 PM HEALTH OCCUPATIONS INSTRUCTOR Acute myeloid leukemia in remission (HCC) PHOSPHORUS BLOOD STAT 11/10/2023 1:12 PM HEALTH OCCUPATIONS INSTRUCTOR Acute myeloid leukemia in remission (HCC) MAGNESIUM BLOOD STAT 11/10/2023 1:12 PM HEALTH OCCUPATIONS INSTRUCTOR Acute myeloid leukemia in remission (HCC) documented in this encounter Results * TRANSFUSE PLATELET PHERESIS UNIT(S) (11/10/2023 3:56 PM HEALTH OCCUPATIONS INSTRUCTOR) Paula OLPEZ NURSING - BLOOD PA OD TRANSFUSION * TRANSFUSE PLATELET PHERESIS UNIT(S), 1 Units (11/10/2023 3:56 PM HEALTH OCCUPATIONS INSTRUCTOR) Paula LOPEZ NURSING - BLOOD PA OD TRANSFUSION * (ABNORMAL) PLATELET COUNT AUTO (11/10/2023 3:41 PM HEALTH OCCUPATIONS INSTRUCTOR) [facility] Platelet Count 58(L) 150 - 420 x10E9/L 11/10/2023 4:20 PM HEALTH OCCUPATIONS INSTRUCTOR [facility] Blood BLOOD SPECIMEN / Unknown Venipuncture / Unknown 11/10/2023 3:41 PM HEALTH OCCUPATIONS INSTRUCTOR 11/10/2023 3:50 PM HEALTH OCCUPATIONS INSTRUCTOR Paula LOPEZ LAB - HEMATOLOGY O RDERABLES [facility] [address] [place] [address], [facility] [phone] * PREPARE PLATELET PHERESIS UNIT(S), 1 Units (11/10/2023 2:50 PM HEALTH OCCUPATIONS INSTRUCTOR) Pathologist [facility] Unit Description LRPLTphere B7 IR [facility] Unit ABO O [facility] Unit Rh POS [facility] Product Number P32 [facility] B LO[facility]ANK [facility] Unit Donor # [id number] [facility] Unit Status transfused [facility] BLO OD BANK LAB Product Code F0497I66 [facility] BLO OD BANK LAB Blood Type Barcode 5100 [facility] Expiration Date [id number] S BLOOD BANK LAB Blood Bank BLOOD SPECIMEN / Unknown 11/10/2023 1:30 PM HEALTH OCCUPATIONS INSTRUCTOR Paula Carrillo BATCH MIXER-DISBURSEMENT CLERK LAB - BLOOD BANK O RDERABLES [facility] LAB [address] [place] [address], [facility] [phone] * RESPIRATORY PANEL WITH SARS-COV-2 BY PCR (ST) (11/10/2023 1:26 PM HEALTH OCCUPATIONS INSTRUCTOR) [facility] Adenovirus PCR Not detected Not detected 11/10/2023 6:57 PM HEALTH OCCUPATIONS INSTRUCTOR [facility] Coronavirus 229E PCR Not detected Not detected 11/10/2023 6:57 PM HEALTH OCCUPATIONS INSTRUCTOR [facility] Coronavirus HKU1 PCR Not detected Not detected 11/10/2023 6:57 PM HEALTH OCCUPATIONS INSTRUCTOR [facility] Coronavirus NL63 PCR Not detected Not detected 11/10/2023 6:57 PM HEALTH OCCUPATIONS INSTRUCTOR [facility] Coronavirus OC43 PCR Not detected Not detected 11/10/2023 6:57 PM HEALTH OCCUPATIONS INSTRUCTOR [facility] COVID-19 PCR Not detected Not detected 11/10/2023 6:57 PM HEALTH OCCUPATIONS INSTRUCTOR [facility] Human Metapneumovirus PCR Not detected Not detected 11/10/2023 6:57 PM HEALTH OCCUPATIONS INSTRUCTOR [facility] Human Rhinovirus/Enterov irus PCR Not detected Not detected 11/10/2023 6:57 PM HEALTH OCCUPATIONS INSTRUCTOR [facility] Influenza A PCR Not detected Not detected 11/10/2023 6:57 PM HEALTH OCCUPATIONS INSTRUCTOR [facility] Influenza B PCR Not detected Not detected 11/10/2023 6:57 PM HEALTH OCCUPATIONS INSTRUCTOR [facility] Parainfluenza Virus 1 PCR Not detected Not detected 11/10/2023 6:57 PM HEALTH OCCUPATIONS INSTRUCTOR [facility] Parainfluenza Virus 2 PCR Not detected Not detected 11/10/2023 6:57 PM HEALTH OCCUPATIONS INSTRUCTOR [facility] Parainfluenza Virus 3 PCR Not detected Not detected 11/10/2023 6:57 PM HEALTH OCCUPATIONS INSTRUCTOR [facility] Parainfluenza Virus 4 PCR Not detected Not detected 11/10/2023 6:57 PM HEALTH OCCUPATIONS INSTRUCTOR [facility] Respiratory Syncytial Virus PCR Not detected Not detected 11/10/2023 6:57 PM HEALTH OCCUPATIONS INSTRUCTOR [facility] Bordetella parapertussis PCR Not detected Not detected 11/10/2023 6:57 PM HEALTH OCCUPATIONS INSTRUCTOR [facility] Bordetella pertussis PCR Not detected Not detected 11/10/2023 6:57 PM HEALTH OCCUPATIONS INSTRUCTOR [facility] Chlamydia pneumoniae PCR Not detected Not detected 11/10/2023 6:57 PM HEALTH OCCUPATIONS INSTRUCTOR [facility] Mycoplasma pneumoniae PCR Not detected Not detected 11/10/2023 6:57 PM HEALTH OCCUPATIONS INSTRUCTOR [facility] Microbiology SPECIMEN FROM NASOPHARYNGEAL STRUCTURE / Unknown Collection / Unknown 11/10/2023 1:26 PM HEALTH OCCUPATIONS INSTRUCTOR 11/10/2023 1:29 PM HEALTH OCCUPATIONS INSTRUCTOR Narrative [facility] - 11/10/2023 6:57 PM HEALTH OCCUPATIONS INSTRUCTOR This nucleic amplification assay has received FDA authorization via the [employer]. Paula Carrillo APRN-DISBURSEMENT CLERK LAB - MICROBIOLOGY ORDERABLES [facility] [address] [place], [place] [address], [facility] [phone] * (ABNORMAL) DIFFERENTIAL MANUAL (11/10/2023 1:12 PM HEALTH OCCUPATIONS INSTRUCTOR) Neutrophil % 70 41 - 74 % 11/10/2023 2:11 PM [facility] Lymphocyte % 29 17 - 47 % 11/10/2023 2:11 PM [facility] Eosinophil % 1 0 - 7 % 11/10/2023 2:11 PM [facility] Neutrophil Absolute 0.77(L) 1.60 - 7.50 x10E9/L 11/10/2023 2:11 PM [facility] Lymphocyte Absolute 0.32(L) 1.00 - 4.40 x10E9/L 11/10/2023 2:11 PM HEALTH OCCUPATIONS INSTRUCTOR H LABORATORY [facility] Eosinophil Absolute 0.01 0.00 - 0.60 x10E9/L 11/10/2023 2:11 PM [facility] RBC Morphology REVIEWED 11/10/2023 2:11 PM [facility] Microcytosis MANY(A) (none) 11/10/2023 2:11 PM [facility] Blood BLOOD SPECIMEN / Unknown Venipuncture / Unknown 11/10/2023 1:12 PM HEALTH OCCUPATIONS INSTRUCTOR 11/10/2023 1:30 PM HEALTH OCCUPATIONS INSTRUCTOR [facility] - HEMATOLOG Y ORDERABLES Performing Organization Address City/[facility]/ZIP Co de Phone Number [facility] [address] [place] [address], [facility] [phone] * TYPE + SCREEN PANEL (11/10/2023 1:12 PM HEALTH OCCUPATIONS INSTRUCTOR) Antibody Screen NEG 2:08 PM [facility] LAB ABO Rh O POS 11/10/2023 2:08 PM HEALTH OCCUPATIONS INSTRUCTOR [facility] Blood Bank BLOOD SPECIMEN / Unknown Venipuncture / Unknown 11/10/2023 1:12 PM HEALTH OCCUPATIONS INSTRUCTOR 11/10/2023 1:30 PM HEALTH OCCUPATIONS INSTRUCTOR Lupe KARIMIDISBURSEMENT CLERK LAB - BLOOD BAN K ORDERABLES Performing Organization Address City/[facility]/ZIP Co de Phone Number [facility] B[facility] LAB [address] [place] [address], [place] [phone] * PHOSPHORUS BLOOD (11/10/2023 1:12 PM HEALTH OCCUPATIONS INSTRUCTOR) Phosphorus 3.7 2.9 - 5.1 mg/dL 11/10/2023 1:57 PM HEALTH OCCUPATIONS INSTRUCTOR [facility] Blood BLOOD SPECIMEN / Unknown Venipuncture / Unknown 11/10/2023 1:12 PM HEALTH OCCUPATIONS INSTRUCTOR 11/10/2023 1:30 PM HEALTH OCCUPATIONS INSTRUCTOR Lupe KARIMIDISBURSEMENT CLERK LAB - CHEMISTRY ORDERABLES [facility] [address] [place] [address], [facility] [phone] * MAGNESIUM BLOOD (11/10/2023 1:12 PM HEALTH OCCUPATIONS INSTRUCTOR) Pathologist [facility] Magnesium 2.2 1.6 - 2.6 mg/dL 11/10/2023 1:57 PM [facility] Blood BLOOD SPECIMEN / Unknown Venipuncture / Unknown 11/10/2023 1:12 PM HEALTH OCCUPATIONS INSTRUCTOR 11/10/2023 1:30 PM HEALTH OCCUPATIONS INSTRUCTOR Lupe Chamorro APRN-DISBURSEMENT CLERK LAB - CHEMISTRY ORDERABLES [facility] [address] [place] [phone], [facility] [phone] * (ABNORMAL) COMPREHENSIVE METABOLIC PANEL (11/10/2023 1:12 PM HEALTH OCCUPATIONS INSTRUCTOR) [facility] BUN 15 7 - 26 mg/dL 11/10/2023 1:57 PM [facility] Creatinine 0.62 0.56 - 0.96 mg/dL 11/10/2023 1:57 PM [facility] Sodium 144 136 - 145 mmol/L 11/10/2023 1:57 PM [facility] Potassium 3.7 3.5 - 4.5 mmol/L 11/10/2023 1:57 PM [facility] Chloride 109(H) 98 - 107 mmol/L 11/10/2023 1:57 PM [facility] CO2 24 22 - 29 mmol/L 11/10/2023 1:57 PM [facility] Glucose 161(H) 70 - 115 mg/dL 11/10/2023 1:57 PM [facility] Calcium 9.0 8.4 - 10.2 mg/dL 11/10/2023 1:57 PM [facility] Protein Total 6.1 6.0 - 8.3 g/dL 11/10/2023 1:57 PM [facility] Albumin 3.3(L) 3.4 - 5.0 g/dL 11/10/2023 1:57 PM [facility] Bilirubin Total 0.8 0.2 - 1.2 mg/dL 11/10/2023 1:57 PM [facility] Alkaline Phosphatase 66 40 - 150 U/L 11/10/2023 1:57 PM [facility] ALT 28 5 - 55 U/L 11/10/2023 1:57 PM [facility] AST 17 5 - 34 U/L 11/10/2023 1:57 PM [facility] Anion Gap 11 6 - 16 11/10/2023 1:57 PM [facility] BUN/Creatinine Ratio 24(H) 7 - 23 11/10/2023 1:57 PM [facility] Osmolality Calculated 302(H) 275 - 295 mOsm/kg 11/10/2023 1:57 PM [facility] Albumin/Globulin Ratio 1.2 1.1 - 2.3 11/10/2023 1:57 PM [facility] eGFR by CKD-EPI >90 >=90 mL/min/1.7 3 m2 11/10/2023 1:57 PM [facility] Blood BLOOD SPECIMEN / Unknown Venipuncture / Unknown 11/10/2023 1:12 PM HEALTH OCCUPATIONS INSTRUCTOR 11/10/2023 1:30 PM [facility] Lupe Chamorro APRN-DISBURSEMENT CLERK LAB - CHEMISTRY ORDERABLES Performing Organization Address [facility]/State/ZIP Co de Phone Number [facility] [address] [place] [address], [facility] [phone] * (ABNORMAL) CBC WITH DIFFERENTIAL (11/10/2023 1:12 PM HEALTH OCCUPATIONS INSTRUCTOR) WBC 1.1(L) 4.0 - 10.7 x10E9/L 11/10/2023 2:11 PM [facility] RBC Count 2.80(L) 3.90 - 5.20 x10E12/L 11/10/2023 2:11 PM [facility] Hemoglobin 8.3(L) 11.9 - 15.8 g/dL 11/10/2023 2:11 PM [facility] Hematocrit 23.0(L) 34.8 - 46.1 % 11/10/2023 2:11 PM [facility] MCV 82.1 80.0 - 98.0 fL 11/10/2023 2:11 PM [facility] MCH 29.6 26.7 - 33.6 pg 11/10/2023 2:11 PM [facility] MCHC 36.1 31.7 - 36.3 g/dL 11/10/2023 2:11 PM [facility] RDW-CV 14.0 11.3 - 14.8 % 11/10/2023 2:11 PM [facility] Platelet Count 20(L) 150 - 420 x10E9/L 11/10/2023 2:11 PM [facility] MPV 12.6(H) 7.8 - 11.4 fL 11/10/2023 2:11 PM [facility] Preliminary Absolute Neutrophil 0.82(L) 1.60 - 7.50 x10E9/L 11/10/2023 2:11 PM [facility] Comment:Preliminary ANC pend ing manual confirmation Blood BLOOD SPECIMEN / Unknown Venipuncture / Unknown 11/10/2023 1:12 PM HEALTH OCCUPATIONS INSTRUCTOR 11/10/2023 1:30 PM HEALTH OCCUPATIONS INSTRUCTOR Lupe Chamorro APRN-CHU LAB - HEMATOLOG Y ORDERABLES Performing Organization Address [facility]/State/[facility] Co de Phone Number [facility] [address] [place] [address] [phone] documented in this encounter Visit Diagnoses Diagnosis 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 in remission Viral upper respiratory tract infection Acute upper respiratory infections of unspecified site documented in this encounter Additional Health Concerns Infection Onset Date Last Indicated Resolved Time COVID-19 Under Investigation 11/10/2023 11/10/2023 11/10/2023 6:57 PM HEALTH OCCUPATIONS INSTRUCTOR documented as of this encounter Care Teams Inserting Press Operator Relationship Specialty Start Date End Date Nliam Mayers MD [address] [place] [phone] PCP - General Family Medicine 09/04/23 04/18/24 documented as of this encounter
--- OUTSIDE RECORDS SUMMARY | 2024-08-31 21:30 | XMS_ITS | Encounter Summary ---
Author Organization [facility] Address [address] [place], [place] [address] [address] Care Team Providers Care Ham Stripper Name Role Phone Nilam Mayers MD Primary Care Provider [phone]- [phone] Encounter Details Date Type Department Care Team (Latest Contact Info) Description 10/20/2023 10:15 AM LOOM MECHANIC - 10/20/2023 11:59 PM [facility] Hospital Encounter [facility] [address] [place] [address] Hussain Carias MD [address] [place] [address] Nilam Mayers MD [address] [place] [address] Britni Winston, PA-C [address] [place] [address] Discharge Disposition: Home or Self [...] drink containing alc ohol? Monthly or less 09/03/2023 Q2: How many drinks containi ng alcohol do you have on a typical day when you are drinking? 3 or 4 09/03/2023 Q3: How often do you have si x or more drinks on one occasion? Less than monthly 09/03/2023 Overall Financial Resource Strain (CARDIA) Answe r Date Recorded How hard is it for you to pa y for the very basics like food, housing, medical care, and heating? Not very hard 09/06/2023 [facility] of Occupat ional Health - Occupational Stress Questionnaire Answer Date Recorded Do you feel stress - tense, restless, nervous, or anxious, or unable to sleep at night because your mind is troubled all the time - these days? Only a little 09/06/2023 Hunger Vital Sign Answer Date Recorded Within the past 12 months, y ou worried that your food would run out before you got the money to buy more. Never true 09/06/20 Within the past 12 months, t he food you bought just didn't last and you didn't have money to get more. Never true 09/06/2023 PRAPARE - Transportation Answer Date Re corded In the past 12 months, has l ack of transportation kept you from medical appointments or from getting medications? No 08/16 In the past 12 months, has l ack of transportation kept you from meetings, work, or from getting things needed for daily living? No 09/06/2023 Housing Stability Vital Sign Answer Richi e Recorded In the last 12 months, was t here a time when you were not able to pay the mortgage or rent on time? No 09/06/2023 In the last 12 months, how many places have you lived? 1 09/06/2023 In the last 12 months, was t here a time when you did not have a steady place to sleep or slept in a longterm (including now)? No 09/06/2023 Sex and Gender Information Value Date Recorded Sex Assigned at Not on file Gender Identity Female 02/13/2024 1:12 PM CDT Sexual Orientation Not on file documented as of this encounter Last Filed Vital Signs Vital Sign Reading Time Taken Comments Blood Pressure 107/72 10/20/2023 5:40 PM LOOM MECHANIC Pulse 92 10/20/2023 5:40 PM LOOM MECHANIC Temperature 36.3 ??C (97.4 ??F) 10/20/2023 5:40 PM CS T Respiratory Rate 18 10/20/2023 5:40 PM LOOM MECHANIC Oxygen Saturation 100% 10/20/2023 5:40 PM LOOM MECHANIC Inhaled Oxygen Concentration - - Weight 109.4 kg (241 lb 3.2 oz) 024 12:58 PM LOOM MECHANIC Height - - Body Mass Index 44.12 10/13/2023 5:23 PM LOOM MECHANIC documented in this encounter Functional Status Functional Status Response Date of Assess ment Is person deaf or have serious hearing difficult y? No 10/09/2023 Is person blind or have serious difficulty seein g? No 10/09/2023 Does person have serious dif ficulty walking/climbing stairs? No 10/09/2023 Does person have difficulty dressing/bathing? No 10/09/2023 Does person have difficulty doing errands alone? Yes 10/09/2023 Cognitive Status Response Date of Assessm ent Does person have difficulty concentrating/remembering/making decisions? No 10/09/2023 documented as of this encounter Discharge Instructions * Patient Instructions* Britni Winston PA-C - 10/20/2023 4:35 PM LOOM MECHANIC Thank you for entrusting your healthcare to the physicians and other specialists at the [facility]. [facility] Hematology/Oncology Clinic: [phone] RN: Alyson Butcher or Beronica Lilly For symptom management or prescription questions during business hours (Mon-Fri 8AM-4:30PM), pleasecall the clinic commercial front load driver ([phone]) and your message will be routed to your RN. Outside of business hours, please call the hematology/oncology doctor on-call. If you have an urgent need during business hours please make sure to speak with a hotel front office manager so your message is routed urgently to a nurse. Hem/Onc Doctor On-Call (After hours, weekends, holidays): [phone], Dial [phone] (Tape Librarian) and askfor the hematology/oncology fellow on-call and [...] room: New chest pain or difficulty breathing MECHANIC documented in this encounter Medications at Time of Discharge Medication Sig Dispensed Refills Start Date End Date Carboxymethylcellulose Sodium (ARTIFICIAL TEARS OP) famotidine (Pepcid) 20 MG tabletIndications:Tonsi llitis Take 1 (one) tablet by mouth 2 times daily 60 tablet 1 10/17/2023 acetaZOLAMIDE (Diamox) 250 MG tablet Take 2 (two) tablets by mouth 2 times daily 120 tablet 1 10/08/2023 11/08/2023 dicyclomine (Bentyl) 20 MG tablet Take 1 (one) tablet by mouth 3 times daily as needed (cramping) 30 tablet 1 10/09/2023 11/08/2023 levoFLOXacin (Levaquin) 500 MG tablet Take 1 (one) tablet by mouth once daily 30 tablet 1 10/08/2023 12/15/2023 medroxyPROGESTERone (Depo-Provera) 150 MG/ML vial Inject 1 mL into muscle every 84 days 10/14/2023 04/30/2024 ondansetron, disintegrating, (Zofran ODT) 8 MG tabletIndications:Tonsi llitis Take 1 (one) tablet by mouth 2 times daily as needed for Nausea/Vomiting Allow tablet to dissolve on the tongue 30 tablet 1 10/09/2023 11/08/2023 posaconazole (Noxafil) 100 MG tablet Take 3 (three) tablets by mouth 2 times daily for 1 day, THEN 3 (three) tablets daily with dinner for 30 days. 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) Take 1 (one) tablet by mouth every 6 hours as needed for Nausea/Vomiting 30 tablet 1 10/09/2023 11/08/2023 valACYclovir (Valtrex) 500 MG tablet Take 1 (one) tablet by mouth 2 times daily 60 tablet 2 10/08/2023 11/03/2023 documented as of this encounter Plan of Treatment Upcoming Encounters Date Type Department Care Team (Late st Contact Info) Description 10/27/2024 10:30 AM LOOM MECHANIC Appointment [facility] [address] [place] [address] Hussain Carias MD [address] [place] [phone] Britni Winston, PABaronC [address] [place] [phone] 11/17/2024 9:00 AM LOOM MECHANIC Office Visit [facility] - Ophthalmology [address] [place] [phone] Song Hobson MD [address] [place] [address] [place] [phone] documented as of this encounter Procedures Procedure Name Priority Date/Time Associated Diagnosis Comments PLATELET COUNT AUTO Routine 10/20/2023 4 :06 PM LOOM MECHANIC Acute myeloid leukemia in remission (HCC) TRANSFUSE RED BLOOD CELL LEUKOREDUCED UNIT(S) Routine 10/20/2023 4:03 PM LOOM MECHANIC PREPARE RBC LEUKOREDUCED UNIT Routine 10/20/2023 3:30 PM LOOM MECHANIC TRANSFUSE PLATELET PHERESIS UNIT(S) Routine 10/20/2023 2:35 PM LOOM MECHANIC PREPARE PLATELET PHERESIS UNIT(S) Routine 10/20/2023 2:22 PM LOOM MECHANIC URIC ACID BLOOD STAT 10/20/2023 1:04 PM LOOM MECHANIC Acute myeloid leukemia in remission (HCC) TYPE + SCREEN PANEL STAT 10/20/2023 1 :04 PM LOOM MECHANIC Acute myeloid leukemia in remission (HCC) CBC W AUTO DIFFERENTIAL STAT 10/20/2023 1:04 PM LOOM MECHANIC Acute myeloid leukemia in remission (HCC) COMPREHENSIVE METABOLIC PANEL STAT 10/20/2023 1:04 PM LOOM MECHANIC Acute myeloid leukemia in remission (HCC) PHOSPHORUS BLOOD STAT 10/20/2023 1:04 PM LOOM MECHANIC Acute myeloid leukemia in remission (HCC) MAGNESIUM BLOOD STAT 10/20/2023 1:04 PM LOOM MECHANIC Acute myeloid leukemia in remission (HCC) LDH BLOOD STAT 10/20/2023 1:04 PM LOOM MECHANIC Acute myeloid leukemia in remission (HCC) documented in this encounter Results * TRANSFUSE RED BLOOD CELL LEUKOREDUCED UNIT(S) (10/20/2023 5:40 PM LOOM MECHANIC) Britni Winston PA-C NURSING - BLOOD PROD TRANSFUSION * TRANSFUSE RED BLOOD CELL LEUKOREDUCED UNIT(S), 1 Units (10/20/2023 5:40 PM LOOM MECHANIC) Britni Winston PA-C NURSING - BLOOD PROD TRANSFUSION * (ABNORMAL) PLATELET COUNT AUTO (10/20/2023 4:06 PM LOOM MECHANIC) Platelet Count 54(L) 150 - 420 x10E9/L 10/20/2023 4:44 PM LOOM MECHANIC [facility] Blood BLOOD SPECIMEN / Unknown Venipuncture / Unknown 10/20/2023 4:06 PM LOOM MECHANIC 10/20/2023 4:14 PM LOOM MECHANIC Britni Winston PA-C LAB - HEMATOLOGY ORD ERABLES [facility] [address] [place] [address], [facility] [phone] * TRANSFUSE PLATELET PHERESIS UNIT(S) (10/20/2023 4:04 PM LOOM MECHANIC) Britni Winston PA-C NURSING - BLOOD PROD TRANSFUSION * TRANSFUSE PLATELET PHERESIS UNIT(S), 1 Units (10/20/2023 4:04 PM LOOM MECHANIC) Britni Winston PA-C NURSING - BLOOD PROD TRANSFUSION * PREPARE (CROSSMATCH) RBC UNIT(S), 1 Units (10/20/2023 3:30 PM LOOM MECHANIC) Unit Description AS1 LR PRBC IRR [facility] Unit ABO O [facility] Unit Rh POS [facility] Product Number R04 [facility] Unit Donor # [id number] [facility] Unit Status transfused [facility] Product Code [id number] [facility] Blood Type Barcode 5100 [facility] Expiration Date S BLOOD BANK LAB Blood Bank BLOOD SPECIMEN / Unknown 10/20/2023 1:14 PM LOOM MECHANIC Britni Winston PA-C LAB - BLOOD BANK ORD ERABLES [facility] [address] [place] [address], [facility] [phone] * PREPARE PLATELET PHERESIS UNIT(S), 1 Units (10/20/2023 2:22 PM LOOM MECHANIC) Unit Description LRPLTphere B7 IR [facility] Unit ABO B [facility] Unit Rh POS [facility] Product Number P32 [facility] Unit Donor # [id number] [facility] Unit Status transfused [facility] Product Code [id number] [facility] Blood Type Barcode 7300 [facility] Expiration Date [id number] S BLOOD BANK LAB Blood Bank BLOOD SPECIMEN / Unknown 10/20/2023 1:14 PM LOOM MECHANIC Britni Winston PA-C LAB - BLOOD BANK ORD ERAJANES Performing Organization Address [facility]/ZIP Co de Phone Number [facility] [address] [place] [phone], [place] [phone] * TYPE + SCREEN PANEL (10/20/2023 1:04 PM LOOM MECHANIC) Antibody Screen NEG 1:51 PM LOOM MECHANIC [facility] ABO Rh O POS 10/20/2023 1:51 PM LOOM MECHANIC [facility] Blood Bank BLOOD SPECIMEN / Unknown Venipuncture / Unknown 10/20/2023 1:04 PM LOOM MECHANIC 10/20/2023 1:14 PM LOOM MECHANIC Britni Winston PA-C LAB - BLOOD BANK ORD GELY Performing Organization Address [facility] Co de Phone Number [facility] [address] [place] [phone], [place] [phone] * URIC ACID BLOOD (10/20/2023 1:04 PM LOOM MECHANIC) Uric Acid 4.0 2.6 - 6.0 mg/dL 10/20/2023 1:38 PM LOOM MECHANIC [facility] Blood BLOOD SPECIMEN / Unknown Venipuncture / Unknown 10/20/2023 1:04 PM LOOM MECHANIC 10/20/2023 1:12 PM LOOM MECHANIC Britni Winston PA-C LAB - CHEMISTRY ORDAzul NAIDU Performing Organization Address [facility]/ZIP Co de Phone Number [facility] [address] [place] [phone], [place] [phone] * LDH BLOOD (10/20/2023 1:04 PM LOOM MECHANIC) LDH Total 170 125 - 243 Units/L 10/20/2023 1:38 PM LOOM MECHANIC [facility] Blood BLOOD SPECIMEN / Unknown Venipuncture / Unknown 10/20/2023 1:04 PM LOOM MECHANIC 10/20/2023 1:12 PM LOOM MECHANIC Britni Winston PA-C LAB - CHEMISTRY JON NAIDU [facility] [address] [place] [address], [facility] [phone] * (ABNORMAL) CBC WITH DIFFERENTIAL (10/20/2023 1:04 PM LOOM MECHANIC) WBC 0.4(LL) 4.0 - 10.7 x10E9/L 10/20/2023 2:14 PM [facility] RBC Count 2.34(L) 3.90 - 5.20 x10E12/L 10/20/2023 2:14 PM [facility] Hemoglobin 6.8(L) 11.9 - 15.8 g/dL 10/20/2023 2:14 PM [facility] Hematocrit 18.3(L) 34.8 - 46.1 % 10/20/2023 2:14 PM [facility] MCV 78.2(L) 80.0 - 98.0 fL 10/20/2023 2:14 PM [facility] MCH 29.1 26.7 - 33.6 pg 10/20/2023 2:14 PM [facility] MCHC 37.2(H) 31.7 - 36.3 g/dL 10/20/2023 2:14 PM [facility] RDW-CV 12.5 11.3 - 14.8 % 10/20/2023 2:14 PM [facility] Platelet Count 18(LL) 150 - 420 x10E9/L 10/20/2023 2:14 PM [facility] MPV 10.1 7.8 - 11.4 fL 10/20/2023 2:14 PM [facility] Preliminary Absolute Neutrophil 0.01(L) 1.60 - 7.50 x10E9/L 10/20/2023 2:14 PM [facility] Neutrophil % 2.2(L) 41.0 - 74.0 % 10/20/2023 2:14 PM [facility] Lymphocyte % 95.5(H) 17.0 - 47.0 % 10/20/2023 2:14 PM [facility] Monocyte % 2.3(L) 3.0 - 11.0 % 10/20/2023 2:14 PM [facility] Eosinophil % 0.0 0.0 - 7.0 % 10/20/2023 2:14 PM [facility] Basophil % 0.0 0.0 - 1.6 % 10/20/2023 2:14 PM [facility] Immature Granulocytes % 0.0 0.0 - 1.0 % 10/20/2023 2:14 PM [facility] Neutrophil Absolute 0.01(L) 1.60 - 7.50 x10E9/L 10/20/2023 2:14 PM [facility] Lymphocyte Absolute 0.42(L) 1.00 - 4.40 x10E9/L 10/20/2023 2:14 PM [facility] Monocyte Absolute 0.01(L) 0.15 - 1.00 x10E9/L 10/20/2023 2:14 PM [facility] Eosinophil Absolute 0.00 0.00 - 0.60 x10E9/L 10/20/2023 2:14 PM [facility] Basophil Absolute 0.00 0.00 - 0.13 x10E9/L 10/20/2023 2:14 PM [facility] Blood BLOOD SPECIMEN / Unknown Venipuncture / Unknown 10/20/2023 1:04 PM LOOM MECHANIC 10/20/2023 1:12 PM [facility] Britni Winston PA-C LAB - HEMATOLOGY ORD ERABLES [facility] [address] [place] [address], [facility] [phone] * MAGNESIUM BLOOD (10/20/2023 1:04 PM [facility]) Magnesium 1.6 1.6 - 2.6 mg/dL 10/20/2023 1:38 PM [facility] Blood BLOOD SPECIMEN / Unknown Venipuncture / Unknown 10/20/2023 1:04 PM LOOM MECHANIC 10/20/2023 1:12 PM LOOM MECHANIC Britni Winston PA-C LAB - CHEMISTRY ORDAzul NAIDU [facility] [address] [place] [address], [facility] [phone] * (ABNORMAL) COMPREHENSIVE METABOLIC PANEL (10/20/2023 1:04 PM LOOM MECHANIC) BUN 11 7 - 26 mg/dL 10/20/2023 1:38 PM [facility] Creatinine 0.68 0.56 - 0.96 mg/dL 10/20/2023 1:38 PM [facility] Sodium 140 136 - 145 mmol/L 10/20/2023 1:38 PM [facility] Potassium 3.2(L) 3.5 - 4.5 mmol/L 10/20/2023 1:38 PM [facility] Chloride 115(H) 98 - 107 mmol/L 10/20/2023 1:38 PM [facility] CO2 15(L) 22 - 29 mmol/L 10/20/2023 1:38 PM [facility] Glucose 139(H) 70 - 115 mg/dL 10/20/2023 1:38 PM [facility] Calcium 9.2 8.4 - 10.2 mg/dL 10/20/2023 1:38 PM [facility] Protein Total 6.5 6.0 - 8.3 g/dL 10/20/2023 1:38 PM [facility] Albumin 3.3(L) 3.4 - 5.0 g/dL 10/20/2023 1:38 PM [facility] Bilirubin Total 0.5 0.2 - 1.2 mg/dL 10/20/2023 1:38 PM [facility] Alkaline Phosphatase 84 40 - 150 U/L 10/20/2023 1:38 PM [facility] ALT 37 5 - 55 U/L 10/20/2023 1:38 PM [facility] AST 16 5 - 34 U/L 10/20/2023 1:38 PM [facility] Anion Gap 10 6 - 16 10/20/2023 1:38 PM [facility] BUN/Creatinine Ratio 16 7 - 23 10/20/2023 1:38 PM [facility] Osmolality Calculated 292 275 - 295 mOsm/kg 10/20/2023 1:38 PM [facility] Albumin/Globulin Ratio 1.0(L) 1.1 - 2.3 10/20/2023 1:38 PM [facility] eGFR by CKD-EPI >90 >=90 mL/min/1.7 3 m2 10/20/2023 1:38 PM [facility] Blood BLOOD SPECIMEN / Unknown Venipuncture / Unknown 10/20/2023 1:04 PM LOOM MECHANIC 10/20/2023 1:12 PM LOOM MECHANIC Britni Winston PA-C LAB - CHEMISTRY JON NAIDU Performing Organization Address City/[facility]/ZIP Co de Phone Number [address] [address], [facility] [phone] * (ABNORMAL) PHOSPHORUS BLOOD (10/20/2023 1:04 PM LOOM MECHANIC) Phosphorus 2.3(L) 2.9 - 5.1 mg/dL 10/20/2023 1:38 PM [facility] Blood BLOOD SPECIMEN / Unknown Venipuncture / Unknown 10/20/2023 1:04 PM LOOM MECHANIC 10/20/2023 1:12 PM LOOM MECHANIC Britni Winston PA-C LAB - CHEMISTRY JON NAIDU Performing Organization Address City/[facility]/ZIP Co de Phone Number [address] [address], [facility] [phone] documented in this encounter Visit Diagnoses Diagnosis 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 documented in this encounter Administered Medications Inactive Administered Medications - up to 3 most recent administrations Medication Order MAR Action Action Date Dose Rate Site potassium chloride ER (Klor-Con M) tablet 40 mEq 40 mEq, Oral, ONCE, 1 dose, On Fri10/20/23 at 1415, Do not crush or chew. $ Given 10/20/2023 2:58 PM LOOM MECHANIC 40 mEq sodium - potassium phosphates (K Phos Neutral) tablet 1 tablet 1 tablet, Oral, ONCE, 1 dose, On 10/20/23 at 1415, Contains Phos 8 mmol, K+ 1.1 mEq, Na 13 mEq per tablet $ Given 10/20/2023 2:58 PM LOOM MECHANIC 1 tablet documented in this encounter Care Teams Ham Stripper Relationship Specialty Start Date End Date Nilam Mayers MD [address] [place] [phone] PCP - General Family Medicine 09/04/23 04/18/24 documented as of this encounter
--- OUTSIDE RECORDS SUMMARY | 2024-08-31 21:30 | XMS_ITS | Encounter Summary ---
Author Organization [facility] Health Address [facility] [place] [address] Care Team Providers Care Crib Attendant Name Role Phone Nilam Mayers MD Primary Care Provider [phone] Encounter Details Date Type Department Care Team (Latest Contact Info) Description 10/22/2023 Travel Social History Tobacco Use Types Packs/Day [...] care, and heating? Not very hard 09/06/2023 [facility] [place] of Occupat ional Health - Occupational Stress [...] money to buy more. Never true 09/06/20 23 Within the past 12 months, t he [...] slept in a prison (including now)? No 09/06/2023 Sex and Gender [...] No 10/09/2023 documented as of this encounter Plan of Treatment Upcoming Encounters Date Type Department Care Team (Late st Contact Info) Description 10/27/2024 10:30 AM PLATE MOUNTER Appointment [facility] [address] [place] [address] Hussain Carias MD [address] [place] [phone] Britni Winston, PABaronC [address] [place] [address] 11/17/2024 9:00 AM PLATE MOUNTER Office Visit [facility] - Ophthalmology [address] [place] [phone] Song Hobson MD [address] [place] [address] [place] [address] documented as of this encounter Visit Diagnoses Not on filedocumented in this encounter Care Teams Crib Attendant Relationship Specialty Start Date End Date Nilam Mayers MD [address] [place] [phone] PCP - General Family Medicine 09/04/23 04/18/24 documented as of this encounter
--- OUTSIDE RECORDS SUMMARY | 2024-08-31 21:30 | XMS_ITS | Encounter Summary ---
Author Organization [facility] Address [address] [place] [address] Care Team Providers Care Retail Management Keyholder Name Role Phone Nilam Mayers MD Primary Care Provider [phone]- [phone] Encounter Details Date Type Department Care Team (Latest Contact Info) Description 10/29/2023 10:38 AM MUFFLE OPERATOR - 10/29/2023 11:59 PM [facility] Hospital Encounter [facility] BMT CLINIC [address] [place] [address] Hussain Carias MD [address] [place] [address] Britni Winston, PABaronC [address] [place] [address] Discharge Disposition: Home or [...] care, and heating? Not very hard 09/06/2023 [facility] [place] [facility] - Occupational Stress [...] in a long term (including now)? No 09/06/2023 Sex and Gender Information Value Date Recorded Sex Assigned at Not on file Gender Identity Female 02/13/2024 1:12 PM CDT Sexual Orientation Not on file documented as of this encounter Last Filed Vital Signs Vital Sign Reading Time Taken Comments Blood Pressure 145/89 10/29/2023 1:10 PM MUFFLE OPERATOR Pulse 102 10/29/2023 1:10 PM MUFFLE OPERATOR Temperature 36.5 ??C (97.7 ??F) 10/29/2023 1:10 PM CS T Respiratory Rate 20 10/29/2023 1:10 PM MUFFLE OPERATOR Oxygen Saturation 100% 10/29/2023 1:10 PM MUFFLE OPERATOR Inhaled Oxygen Concentration - - Weight 112.1 kg (247 lb 3.2 oz) 10/29/2023 1:10 PM MUFFLE OPERATOR Height - - Body Mass Index 45.21 10/13/2023 5:23 PM MUFFLE OPERATOR documented in this encounter Functional Status Functional [...] * Patient Instructions* Britni Winston PA-C - 10/29/2023 1:45 PM MUFFLE OPERATOR Thank you for entrusting your healthcare to the physicians and other specialists at the [facility] Hematology & Oncology Clinic. [facility] Hematology/Oncology Clinic: [phone] RN: Alyson Butcher or Beronica Lilly For symptom management or prescription questions during business hours (Mon-Fri 8AM-4:30PM), pleasecall the clinic front desk officer ([phone]) and your message will be routed to your RN. Outside of business hours, please call the hematology/oncology doctor on-call. If you have an urgent need during business hours please make sure to speak with a front services agent so your message is routed urgently to a nurse. Hem/Onc Doctor On-Call (After hours, weekends, holidays): [phone], Dial 0 (Steel Burner) and askfor the hematology/oncology fellow on-call and [...] room: New chest pain or difficulty breathing LE OPERATOR documented in this encounter Medications at Time [...] for Nausea/Vomiting 30 tablet 1 10/09/2023 11/08/2023 sodium - potassium phosphates (K Phos Neutral) 155-852-130 MG tablet Take 2 (two) tablets by mouth once daily 60 tablet 10/22/2023 11/08/2023 valACYclovir (Valtrex) 500 MG tablet Take 1 (one) tablet by mouth 2 times daily 60 tablet 2 10/08/2023 11/03/2023 documented as of this encounter Progress Notes * Britni Winston PA-C - 10/29/2023 1:28 PM CST [facility] Hematology/Oncology Clinic Visit Note Date of visit: 10/29/2023 Patient: Sarah Mckeon Oncologist: Dr. 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 Was treated with vanc cefepime and then CTX, but had persistent pancytopenia. Bone marrow biopsy was done which showed 78% blast on the bone marrow flow cytometry and confirmed NPM1 mutation. Pt was transferred to [facility] for concern for AML. Count recovery BMBx performed at [facility] on 10/01/23 confirmed no blasts, MRD pending as of 10/13/23. SH - Lives alone with daughter (11 y old); her daughter is currently staying with her dad. No PMHx of cancers; she is adopted so FH is limited. No drugs or smoking or alcohol use. C1 7+3 Induction 09/06/23 C1 HiDAC 10/04/23 INTERIM HISTORY Spotting some again, denies any soaked pads. Denies pain anywhere. Denies F/C/N/V/D/C Denies CP/SOB Pt reports she was unable to fill her potassium prescription as [facility]. VSS ANC 1120 PERFORMANCE STATUS: KPS 90 / ECOG 1 ONCOLOGY HISTORY: Cancer Staging No matching staging information was found for the patient. 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 posaconazole (Noxafil) 100 MG tablet Take 3 (three) tablets by mouth 2 times daily for 1 day, THEN 3 (three) tablets daily with dinner for 30 days. 90 tablet 2 ??? potassium chloride ER 10 MEQ tablet Take 2 (two) tablets by mouth once daily 30 tablet 0 ??? prochlorperazine (Compazine) 10 MG tablet Take 1 (one) tablet by mouth every 6 hours as needed for Nausea/Vomiting 30 tablet 1 ??? sodium - potassium phosphates (K Phos Neutral) 155-852-130 MG tablet Take 2 (two) tablets by mouth once daily 60 tablet 0 ??? valACYclovir (Valtrex) 500 MG tablet Take 1 (one) tablet by mouth 2 times daily 60 tablet 2 No current facility-administered medications on file prior [...] No Stress: No Stress Concern Present (09/06/2023) [facility] [place] [facility] - Occupational Stress Questionnaire [...] for chills and fever. HENT: Negative for congestion and sore throat. Eyes: Negative for blurred vision, double vision, pain and redness. Respiratory: Negative for cough and shortness of breath. Cardiovascular: Negative for chest pain. Gastrointestinal: Negative for abdominal pain, constipation, diarrhea, nausea and vomiting. Skin: Negative for rash. Neurological: Negative for dizziness and headaches. PHYSICAL EXAM: Wt Readings from Last 3 Encounters: 10/29/23 112.1 kg (247 lb 3.2 oz) 10/27/23 111.9 kg (246 lb 9.6 oz) 10/24/23 109.5 kg (241 lb 4.8 oz) Temp Readings from Last 3 Encounters: 10/29/23 97.7 ??F 10/27/23 98.3 ??F 10/24/23 97.5 ??F (Oral) BP Readings from Last 3 Encounters: 10/29/23 145/89 10/27/23 149/97 10/24/23 126/75 Pulse Readings from Last 3 Encounters: 10/29/23 102 10/27/23 99 10/24/23 101 Physical Exam Vitals reviewed. Constitutional: General: She [...] is normal. Abdominal: General: Abdomen is flat. Musculoskeletal: Cervical back: Normal range of motion and neck supple. Right lower leg: No swelling. No edema. Left lower leg: No swelling. No edema. Skin: General: Skin is warm and dry. Neurological: General: No focal deficit present. Mental Status: She is alert and oriented to person, place, and time. Psychiatric: Mood and Affect: Mood normal. Behavior: Behavior normal. LABS: Recent Labs Component Name 10/29/23 1048 WBC 3.2* HGB 7.4* HCT 20.2* PLTCOUNT 77* Recent Labs Component Name 10/29/23 1048 10/27/23 1409 10/24/23 1212 10/22/23 1340 10/20/23 1304 10/13/23 2140 10/13/23 1354 10/07/23 2031 10/06/23 2041 10/05/23 2051 10/02/23 2132 10/01/23 2119 09/30/23200809/07/23200709/06/23 2143 09/06/23 0026 09/05/23 0909 09/04/23 0525 WBC 3.2* 2.8* 1.3* - 0.4* - 0.5* - 2.5* 3.8* - 4.1 4.1 - 0.6* 1.9* - 1.9* RBC 2.51* 2.48* 2.69* - 2.34* - 2.54* - 2.43* 2.34* - 2.36* 2.32* - 2.45* 2.46* - 2.51* HGB 7.4* 7.3* 7.8* - 6.8* - 7.5* - 7.5* 7.2* - 7.3* 7.1* - 7.9* 8.0* - 8.1* HCT 20.2* 19.7* 21.1* - 18.3* - 20.2* - 21.5* 20.9* - 21.5* 20.4* - 22.0* 22.1* - 22.6* MCV 80.5 79.4* 78.4* - 78.2* - 79.5* - 88.5 89.3 - 91.1 87.9 - 89.8 89.8 - 90.0 MCH 29.5 29.4 29.0 - 29.1 - 29.5 - 30.9 30.8 - 30.9 30.6 - 32.2 32.5 - 32.3 MCHC 36.6* 37.1* 37.0* - 37.2* - 37.1* - 34.9 34.4 - 34.0 34.8 - 35.9 36.2 - 35.8 MPV 11.1 11.8* 10.8 - 10.1 - - - 10.2 10.3 - 11.4 11.0 - 11.8* 11.4 - - NEUTPCT - - - - 2.2* - - - 88.4* 71.1 - - - - - - - - MONOPCT - - - - 2.3* - - - 2.4* 13.8* - - - - - - - - EOSPCT - - - - 0.0 - - - 0.0 0.0 - - - - - - - - BASOPCT - - - - 0.0 - - - 0.0 0.0 - - - - - - - - MONO 1.09* 1.15* 0.49 - - - - - - - - 0.78 1.07* - 0.02* 0.02* - 0.02* EOS - - - - - - - - - - - 0.04 0.04 - - 0.02 - 0.02 BASO - - - - - - 0.01 - - - - - - - 0.01 - - 0.04 - = values in this interval not displayed. Recent Labs Component Name 10/29/23 1048 10/27/23 1409 10/24/23 1212 BUN 7 9 10 CREATININE 0.54* 0.51* 0.71 NA 144 143 143 POTASSIUM 3.0* 3.1* 3.5 CL 111* 111* 117* CALCIUM 9.1 9.3 9.7 PROT 6.4 6.4 6.6 ALB 3.1* 3.1* 3.2* TBILI 0.3 0.3 0.3 ALKPHOS 73 77 84 ALT 31 32 32 AST 25 22 18 ANIONGAP 9 7 9 BCR 13 18 14 OSMOLALITY 298* 295 295 EGFR >90 >90 >90 Pathology Results RESULT Normal FISH Result inv(3) or t(3;3) RPN1::MECOM Fusion: not detected Deletion 5q: not detected Monosomy 7: not detected Deletion 7q: not detected t(8;21) RUNX1::UGQZ4L0 Fusion: not detected 11p15 (NUP98) Rearrangement: not detected 11q23 (KMT2A) Rearrangement: not detected inv(16) or t(16;16) CBFB::MYH11 Fusion: not detected INTERPRETATION There was no evidence of RPN1::MECOM fusion due to 3q21/3q26.2 inversion or translocation, deletion 5q31, monosomy 7, deletion 7q31, RUNX1::NPGL4T8 fusion due to translocation (8;21)(q21.3;q22), 11p15 (NUP98) [...] only. Flow Cytometry Summary Concurrent flow cytometry ([id number]) shows acute myeloid leukemia. Specimens A Bone Marrow . . Final Diagnosis Bone marrow, flow cytometric immunophenotyping: [...] agent. Report dictated by Sivakumar Garrido DO (Criminal Profiler). Attending Physician: Dr. Augustine Davison Collateral Analyst: Dr. Sivakumar Garrido DO (Criminal Profiler). The procedure was performed by the: The dietitian assistant, and the attending radiologist was present [...] 38 year old female who transferred to [facility] on 09/03/2023 for suspected AML. Patient started 7 + 3 (cytarabine and idarubicin) on 09/06/2023. Now receiving HiDAC consolidation due to concern for RUG TOUCH UP PAINTER involvement. 1. AML, NPM-1 mut, fav risk in CR and molecular remission after 7+3 -Pancytopenia, neutropenia -Transferred from [facility] after a BMBX showed 78% blasts [...] is systemic chemo for leukemic retinal infiltration. - Labs reviewed 10/29/23; Kphos and potassium repleted. 2. Iwj-hofmc-ljo metabolic acidosis - Likely 10/17 Diamox, follow - Decreased Diamox to 250mg PO BID 10/17/23 from 500mg PO BID d/t significant metabolic acidosis on labs. - D/c'd Diamox 10/24/23 d/t persistent significant metabolic acidosis. - Metabolic acidosis significantly improved 10/29/23. 3. Vaginal bleeding - Patient experiencing lower abdominal cramping consistent with her menstrual cramps - Reports vaginal bleeding ~1 pad/day - Medroxyprogesterone pill discontinued 10/17 concern for IIH. Confirmed with patient that she is nottaking it. - Keep platelets >30K while pt continues to have sx of bleeding. - s/p Depo shot 10/14. Will plan monthly Depo shots for now. 4. Multilayered retinal hemorrhages in both eyes likely [...] per ophtho 10/13. - Ophtho f/u 11/20/23. 5. Dry Eyes - Per ophthalmology, dexamethasone eye [...] time - F/u with Dr. Hobson 11/20/23 6. Elevated ICP - Noted while admitted to [...] this time - F/u with Dr. Hobson 7. Small volume SAH in right central sulcus - Per CT 10/01/23 - NSGY will f/u with pt in clinic w/ Dr. Lomeli in ~late October or early November 2023 w/ CT non con for imaging. - Keep plts >30K at this time. PLAN: - CBC 3 times a week while outpatient; social work has arranged rides for patient TIW. - Labs reviewed 10/29/23 - Phos and K repleted. Called [facility] to clarify K prescription; [facility] states the prescription will be ready today, 10/29/23. - Will continue with dexamethasone on future HiDAC cycles after extensive discussion with ophthalmology 10/27/23. - Continue Valtrex, posaconazole, and levaquin for OI ppx - ANC recovered to 1000; d/c'd Levaquin 10/29/23. Will need to re-add Levaquin if pt becomes neutropenic. - Will need test p/t next HiDAC cycle. - Per discussion with ophthalmology, will c/w dexamethasone eye drops with next HiDAC cycle in addition to QID artificial tears. - Medication complete review with pharmacy team and patient; new MedActionPlan provided. Pt understanding of plan and has no questions at this time. - Transfusion parameters: (Leukoreduced and irradiated blood products) pRBC to keep Hgb >7 if hemodynamically stable and no bleeding. PLT transfusion to keep PLT >30K at this time due to (small) SAH, vaginal bleeding, and retinal hemorrhages. F/u: 10/31/23 for basics, TLS, T&S, ? Transfusions, and on 11/03/23 for basics, ? Transfusions, UPT, TLS, T&S, and admission for HiDAC Britni Winston PA-C Blood & Marrow Transplant [facility] LE OPERATOR documented in this encounter Plan of Treatment Upcoming Encounters Date Type Department Care Team (Late st Contact Info) Description 10/27/2024 10:30 AM MUFFLE OPERATOR Appointment [facility] BMT CLINIC [address] [place], [place] [id number] Hussain Carias MD [address] [place] [phone] Britni Winston PA-C [address] [place] [address] 11/17/2024 9:00 AM MUFFLE OPERATOR Office Visit [facility] - Ophthalmology [address] [place] [phone] Song Hobson MD [address] [place] [address] [place] [phone] documented as of this encounter Procedures Procedure Name Priority Date/Time Associated Diagnosis Comments URIC ACID BLOOD STAT 10/29/2023 10:48 AM MUFFLE OPERATOR Acute myeloid leukemia in remission (HCC) PATHOLOGY PERIPHERAL SMEAR REVIEW STAT 10/29/2023 10:48 AM MUFFLE OPERATOR Acute myeloid leukemia in remission (HCC) TYPE + SCREEN PANEL STAT 10/29/2023 1 0:48 AM MUFFLE OPERATOR Acute myeloid leukemia in remission (HCC) DIFFERENTIAL MANUAL STAT 10/29/2023 1 0:48 AM MUFFLE OPERATOR Acute myeloid leukemia in remission (HCC) CBC W AUTO DIFFERENTIAL STAT 10/29/2023 10:48 AM MUFFLE OPERATOR Acute myeloid leukemia in remission (HCC) COMPREHENSIVE METABOLIC PANEL STAT 10/29/2023 10:48 AM MUFFLE OPERATOR Acute myeloid leukemia in remission (HCC) PHOSPHORUS BLOOD STAT 10/29/2023 10:4 8 AM MUFFLE OPERATOR Acute myeloid leukemia in remission (HCC) MAGNESIUM BLOOD STAT 10/29/2023 10:48 AM MUFFLE OPERATOR Acute myeloid leukemia in remission (HCC) LDH BLOOD STAT 10/29/2023 10:48 AM MUFFLE OPERATOR Acute myeloid leukemia in remission (HCC) documented in this encounter Results * PATHOLOGY PERIPHERAL SMEAR REVIEW (10/29/2023 10:48 AM MUFFLE OPERATOR) Path Review Corrected 10/29/2023 2:[address] [facility] Blood BLOOD SPECIMEN / Unknown Venipuncture / Unknown 10/29/2023 10:48 AM MUFFLE OPERATOR 10/29/2023 10:54 AM MUFFLE OPERATOR Narrative [facility] - 10/29/2023 2:45 PM MUFFLE OPERATOR Clinical history: This 38 year-old female patient with recently-diagnosed AML (August 2023), currently on consolidation chemotherapy, ??presented to BMT (hematology/oncology) clinic for follow-up. ?? Pertinent findings, peripheral blood smear: -Pancytopenia -Absolute neutropenia and lymphocytopenia -Mild absolute monocytosis -Normochromic and borderline microcytic anemia with increased anisocytosis and polychromasia -Slightly increased number of nucleated RBCs Comments: These findings are consistent with a patient undergoing chemotherapy. Correlation with clinical findings is advised. Maria C Downing MD Attending Physician Transfusion Medicine and Clinical Pathology Britni Winston PA-C LAB - PATHOLOGY/CYTO LOGY ORDERABLES [facility] [address] [place] [address], [facility] [phone] * (ABNORMAL) DIFFERENTIAL MANUAL (10/29/2023 10:48 AM MUFFLE OPERATOR) Neutrophil % 35(L) 41 - 74 % 10/29/2023 2:44 PM [facility] Lymphocyte % 29 17 - 47 % 10/29/2023 2:44 PM [facility] Monocyte % 30(H) 3 - 11 % 10/29/2023 2:44 PM [facility] Comment:This is a corrected result. Previous result was 34 % on 10/29/2023 at 1249 MUFFLE OPERATOR Myelocyte % 1(H) 0% % 10/29/2023 2:44 PM [facility] Other Cells % 5(H) 0% % 10/29/2023 2:44 PM [facility] Comment: Slightly immature-appearing monocytes (often seen following chemo and/or during bone marrow regeneration). This is a corrected result. Previous result was 1 % on 10/29/2023 at 1249 MUFFLE OPERATOR Neutrophil Absolute 1.12(L) 1.60 - 7.50 x10E9/L 10/29/2023 2:44 PM [facility] Lymphocyte Absolute 0.93(L) 1.00 - 4.40 x10E9/L 10/29/2023 2:44 PM [facility] Monocyte Absolute 1.09(H) 0.15 - 1.00 x10E9/L 10/29/2023 2:44 PM [facility] RBC Morphology REVIEWED 10/29/2023 2:44 PM [facility] Microcytosis MANY(A) (none) 10/29/2023 2:44 PM [facility] Schistocytes FEW(A) (none) 10/29/2023 2:44 PM [facility] Blood BLOOD SPECIMEN / Unknown Venipuncture / Unknown 10/29/2023 10:48 AM MUFFLE OPERATOR 10/29/2023 10:54 AM MUFFLE OPERATOR Britni Winston PA-C LAB - HEMATOLOGY ORD ERABLES [facility] [address] [place] [address], [place] [phone] * TYPE + SCREEN PANEL (10/29/2023 10:48 AM MUFFLE OPERATOR) Antibody Screen NEG 11:37 AM MUFFLE OPERATOR [facility] BLOOD BANK LAB ABO Rh O POS 10/29/2023 11:37 AM MUFFLE OPERATOR [facility] BLOOD BANK LAB Blood Bank BLOOD SPECIMEN / Unknown Venipuncture / Unknown 10/29/2023 10:48 AM MUFFLE OPERATOR 10/29/2023 10:54 AM MUFFLE OPERATOR Britni Winston PA-C LAB - BLOOD BANK ORD ERAJANES Performing Organization Address City/[facility]/ZIP Co de Phone Number [facility] BLOOD BANK LAB [address] [place] [address], [place] [phone] * URIC ACID BLOOD (10/29/2023 10:48 AM MUFFLE OPERATOR) Pathologist [facility] Uric Acid 3.2 2.6 - 6.0 mg/dL 10/29/2023 11:[address] [facility] Blood BLOOD SPECIMEN / Unknown Venipuncture / Unknown 10/29/2023 10:48 AM MUFFLE OPERATOR 10/29/2023 10:54 AM MUFFLE OPERATOR Britni Winston PA-C LAB - CHEMISTRY JON NAIDU Performing Organization Address City/[facility]/ZIP Co de Phone Number [facility] [address] [place] [address], [place] [phone] * (ABNORMAL) LDH BLOOD (10/29/2023 10:48 AM MUFFLE OPERATOR) LDH Total 288(H) 125 - 243 Units/L 10/29/2023 11:[address] [facility] Blood BLOOD SPECIMEN / Unknown Venipuncture / Unknown 10/29/2023 10:48 AM MUFFLE OPERATOR 10/29/2023 10:54 AM MUFFLE OPERATOR Britni Winston PA-C LAB - CHEMISTRY ORDAzul NAIDU [place] [address] [place] [address] [phone] * (ABNORMAL) CBC WITH DIFFERENTIAL (10/29/2023 10:48 AM MUFFLE OPERATOR) WBC 3.2(L) 4.0 - 10.7 x10E9/L 10/29/2023 12:48 PM [facility] RBC Count 2.51(L) 3.90 - 5.20 x10E12/L 10/29/2023 12:48 PM [facility] Hemoglobin 7.4(L) 11.9 - 15.8 g/dL 10/29/2023 12:48 PM [facility] Hematocrit 20.2(L) 34.8 - 46.1 % 10/29/2023 12:48 PM [facility] MCV 80.5 80.0 - 98.0 fL 10/29/2023 12:48 PM [facility] MCH 29.5 26.7 - 33.6 pg 10/29/2023 12:48 PM [facility] MCHC 36.6(H) 31.7 - 36.3 g/dL 10/29/2023 12:48 PM [facility] RDW-CV 12.6 11.3 - 14.8 % 10/29/2023 12:48 PM [facility] Platelet Count 77(L) 150 - 420 x10E9/L 10/29/2023 12:48 PM [facility] MPV 11.1 7.8 - 11.4 fL 10/29/2023 12:48 PM [facility] Preliminary Absolute Neutrophil 1.00(L) 1.60 - 7.50 x10E9/L 10/29/2023 12:48 PM [facility] NRBC 3.1(H) <=0.0 /100 WBC 10/29/2023 12:48 PM [facility] Blood BLOOD SPECIMEN / Unknown Venipuncture / Unknown 10/29/2023 10:48 AM MUFFLE OPERATOR 10/29/2023 10:54 AM MUFFLE OPERATOR Britni Winston PA-C LAB - HEMATOLOGY ORD ERABLES [facility] [address] [place] [address], [place] [phone] * (ABNORMAL) MAGNESIUM BLOOD (10/29/2023 10:48 AM MUFFLE OPERATOR) [facility] Magnesium 1.5(L) 1.6 - 2.6 mg/dL 10/29/2023 11:35 AM [facility] Blood BLOOD SPECIMEN / Unknown Venipuncture / Unknown 10/29/2023 10:48 AM MUFFLE OPERATOR 10/29/2023 10:54 AM [facility] Britni Winston PA-C LAB - CHEMISTRY JON NAIDU Performing Organization Address [facility]/ZIP Co de Phone Number [facility] [address] [place] [address], [place] [phone] * (ABNORMAL) COMPREHENSIVE METABOLIC PANEL (10/29/2023 10:48 AM MUFFLE OPERATOR) [facility] BUN 7 7 - 26 mg/dL 10/29/2023 11:35 AM [facility] Creatinine 0.54(L) 0.56 - 0.96 mg/dL 10/29/2023 11:35 AM [facility] Sodium 144 136 - 145 mmol/L 10/29/2023 11:35 AM [facility] Potassium 3.0(L) 3.5 - 4.5 mmol/L 10/29/2023 11:35 AM [facility] Chloride 111(H) 98 - 107 mmol/L 10/29/2023 11:35 AM [facility] CO2 24 22 - 29 mmol/L 10/29/2023 11:35 AM [facility] Glucose 129(H) 70 - 115 mg/dL 10/29/2023 11:35 AM [facility] Calcium 9.1 8.4 - 10.2 mg/dL 10/29/2023 11:35 AM [facility] Protein Total 6.4 6.0 - 8.3 g/dL 10/29/2023 11:35 AM [facility] Albumin 3.1(L) 3.4 - 5.0 g/dL 10/29/2023 11:35 AM [facility] Bilirubin Total 0.3 0.2 - 1.2 mg/dL 10/29/2023 11:35 AM [facility] Alkaline Phosphatase 73 40 - 150 U/L 10/29/2023 11:35 AM [facility] ALT 31 5 - 55 U/L 10/29/2023 11:35 AM [facility] AST 25 5 - 34 U/L 10/29/2023 11:35 AM [facility] Anion Gap 9 6 - 16 10/29/2023 11:35 AM [facility] BUN/Creatinine Ratio 13 7 - 23 10/29/2023 11:35 AM [facility] Osmolality Calculated 298(H) 275 - 295 mOsm/kg 10/29/2023 11:35 AM [facility] Albumin/Globulin Ratio 0.9(L) 1.1 - 2.3 10/29/2023 11:35 AM [facility] eGFR by CKD-EPI >90 >=90 mL/min/1.7 3 m2 10/29/2023 11:35 AM [facility] Blood BLOOD SPECIMEN / Unknown Venipuncture / Unknown 10/29/2023 10:48 AM MUFFLE OPERATOR 10/29/2023 10:54 AM MUFFLE OPERATOR Britni Winston PA-C LAB - CHEMISTRY ORDAzul NAIDU [address] [address], [facility] [phone] * (ABNORMAL) PHOSPHORUS BLOOD (10/29/2023 10:48 AM MUFFLE OPERATOR) Phosphorus 1.8(L) 2.9 - 5.1 mg/dL 10/29/2023 11:35 AM [facility] Blood BLOOD SPECIMEN / Unknown Venipuncture / Unknown 10/29/2023 10:48 AM MUFFLE OPERATOR 10/29/2023 10:54 AM MUFFLE OPERATOR Britni Winston PA-C LAB - CHEMISTRY ORDAzul NAIDU [address] [place] [address], [facility] [phone] documented in this encounter Visit Diagnoses Diagnosis 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 documented in this encounter Administered Medications Inactive Administered Medications - up to 3 most recent administrations Medication Order MAR Action Action Date Dose Rate Site potassium chloride ER (Klor-Con M) tablet 40 mEq 40 mEq, Oral, ONCE, 1 dose, On Fri10/29/23 at 1345, Do not crush or chew. $ Given 10/29/2023 1:49 PM MUFFLE OPERATOR 40 mEq sodium - potassium phosphates (K Phos Neutral) tablet 2 tablet 2 tablet, Oral, ONCE, 1 dose, On Fri10/29/23 at 1345, Contains Phos 8 mmol, K+ 1.1 mEq, Na 13 mEq per tablet $ Given 10/29/2023 1:49 PM MUFFLE OPERATOR 2 tablets documented in this encounter Care Teams Retail Management Keyholder Relationship Specialty Start Date End Date Nilam Mayers MD [address] [place] [phone] PCP - General Family Medicine 09/04/23 04/18/24 documented as of this encounter
--- OUTSIDE RECORDS SUMMARY | 2024-08-31 21:30 | XMS_ITS | Encounter Summary ---
Author Organization [facility] Health Address [facility] [place] [address] Care Team Providers Care Truck Farmer Name Role Phone Nilam Mayers MD Primary Care Provider +1- [phone] Encounter Details Date Type Department Care Team (Latest Contact Info) Description 10/27/2023 Travel Social History Tobacco Use Types Packs/Day [...] care, and heating? Not very hard 09/06/2023 [facility] [place] of Occupat ional Health - Occupational Stress [...] slept in a usp (including now)? No 09/06/2023 Sex and Gender [...] st Contact Info) Description 10/27/2024 10:30 AM KISS MACHINE OPERATOR Appointment [facility] BMT CLINIC [address] [place] [address] Hussain Carias MD [address] [place] [phone] Britni Winston, PABaronC [address] [place] [address] 11/17/2024 9:00 AM KISS MACHINE OPERATOR Office Visit [facility] - Ophthalmology [address] [place] [phone] Song Hobson MD [address] [place] [address] DEPT [place] [address] documented as of this encounter Visit Diagnoses Not on filedocumented in this encounter Care Teams Truck Farmer Relationship Specialty Start Date End Date Nilam Mayers MD [address] [place] [phone] PCP - General Family Medicine 09/04/23 04/18/24 documented as of this encounter
--- OUTSIDE RECORDS SUMMARY | 2024-08-31 21:30 | XMS_ITS | Encounter Summary ---
Author Organization [facility] Health Address [address] [place], [place] [address] [address] Care Team Providers Care Financial Foundations Associate Name Role Phone Nilam Mayers MD Primary Care Provider +1- [phone] Reason for Visit * Reason Onset Date Comments Hospital Admission 10/30/2023 Encounter Details Date Type Department Care Team (Late st Contact Info) Description 10/30/[address] [facility] INTERNAL [facility] [address] [place] [phone] Terri Acosta DO [address] OF [facility] [place] [address] Hospital Admission Social History Tobacco Use Types Packs/Day Years [...] care, and heating? Not very hard 09/06/2023 [facility] [place] [facility] of Occupat ional Health - Occupational Stress [...] in a group home (including now)? 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 Patient needs on arrival to [facility]: Medicine admissions resident (ask butadiene converter utility operator for Medicine Admission) to be notified of arrival. Consultation to (N/A if blank): heme/onc I have accepted this patient for transfer to [facility]. If patient awaiting bed for >24hours, an update on patient's clinical condition is requested. Signed:Terri Acosta DO 10/30/2023 TITATIVE ANALYST documented in this encounter Plan of Treatment Upcoming Encounters Date Type Department Care Team (Late st Contact Info) Description 10/27/2024 10:30 AM QUANTITATIVE ANALYST Appointment [facility] B[facility] CLINIC [address] [place] [address] Hussain Carias MD [address] [place] [phone] Britni Winston PA-C [address] [place] [address] 11/17/2024 9:00 AM QUANTITATIVE ANALYST Office Visit [facility] Physician Group - Ophthalmology [address] [place] [address], [place] [phone] Song Hobson MD [address] [place] [address] [place] [address] documented as of this encounter Visit Diagnoses Not on filedocumented in this encounter Care Teams Financial Foundations Associate Relationship Specialty Start Date End Date Nilam Mayers MD [address] [place] [phone] PCP - General Family Medicine 09/04/23 04/18/24 documented as of this encounter
--- OUTSIDE RECORDS SUMMARY | 2024-08-31 21:30 | XMS_ITS | Encounter Summary ---
Author Organization [facility] Address [address] [place] [address] Care Team Providers Care Operational Test Mechanic Name Role Phone Nilam Mayers MD Primary Care Provider +1- [phone] Encounter Details Date Type Department Care Team (Latest Contact Info) Description 10/22/2023 11:31 AM COPY ROOM TECHNICIAN - 10/22/2023 11:59 PM [facility] Hospital Encounter [facility] BMT CLINIC [address] [place] [address] Hussain Carias MD [address] [place] [address] Britni Winston, PABaronC [address] [place] [address] Discharge Disposition: Home or Self [...] and heating? Not very hard 09/06/2023 [facility] [place] of Occupat ional Health - Occupational Stress [...] in a senior care (including now)? No 09/06/2023 Sex and Gender Information Value Date Recorded Sex Assigned at Not on file Gender Identity Female 02/13/2024 1:12 PM CDT Sexual Orientation Not on file documented as of this encounter Last Filed Vital Signs Vital Sign Reading Time Taken Comments Blood Pressure 118/81 10/22/2023 1:36 PM COPY ROOM TECHNICIAN Pulse 87 10/22/2023 1:36 PM COPY ROOM TECHNICIAN Temperature 36.6 ??C (97.8 ??F) 10/22/2023 1:36 PM CS T Respiratory Rate 16 10/22/2023 1:36 PM COPY ROOM TECHNICIAN Oxygen Saturation 100% 10/22/2023 1:36 PM COPY ROOM TECHNICIAN Inhaled Oxygen Concentration - - Weight 109.6 kg (241 lb 11.2 oz) 10/22/2023 1:36 PM COPY ROOM TECHNICIAN Height - - Body Mass Index 44.21 10/13/2023 5:23 PM COPY ROOM TECHNICIAN documented in this encounter Functional Status Functional [...] * Patient Instructions* Britni Winston PA-C - 10/22/2023 3:09 PM COPY ROOM TECHNICIAN Thank you for entrusting your healthcare to the physicians and other specialists at the [facility] Hematology & Oncology Clinic. [facility] Hematology/Oncology Clinic: [phone] RN: Alyson Butcher or Beronica Lilly For symptom management or prescription questions during business hours (Mon-Fri 8AM-4:30PM), pleasecall the clinic front end specialist ([phone]) and your message will be routed to your RN. Outside of business hours, please call the hematology/oncology doctor on-call. If you have an urgent need during business hours please make sure to speak with a front end specialist so your message is routed urgently to a nurse. Hem/Onc Doctor On-Call (After hours, weekends, holidays): [phone], Dial 0 (Loom Doffer) and askfor the hematology/oncology fellow on-call and [...] room: New chest pain or difficulty breathing ROOM TECHNICIAN documented in this encounter Medications at Time [...] Progress Notes * Britni Winston PA-C - 10/22/2023 2:51 PM CST [facility] Hematology/Oncology Clinic Visit Note Date of visit: 10/22/2023 Patient: Sarah Mckeon Oncologist: Dr. 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 Was treated with vanc cefepime and then CTX, but had persistent pancytopenia. Bone marrow biopsy was done which showed 78% blast on the bone marrow flow cytometry and confirmed NPM1 mutation. Pt was transferred to [facility] for concern for AML. Count recovery BMBx performed at [facility] on 10/01/23 confirmed no blasts, MRD pending as of 10/13/23. SH - Lives alone with daughter (11 y old); her daughter is currently staying with her dad. No PMHx of cancers; she is adopted so FH is limited. No drugs or smoking or alcohol use. C1 7+3 Induction 09/06/23 C1 HiDAC 10/04/23 INTERIM HISTORY Reports feeling well today. She is sitting in room doing homework on her laptop today. Reports all bleeding has completely stopped, including her vaginal bleeding. Denies F/C/N/V/D/C. Denies pain anywhere. Denies CP/SOB. Denies any visual sx; denies eye pain/double vision/blurred vision. VSS ANC 0 PERFORMANCE STATUS: KPS 90 / ECOG 1 ONCOLOGY HISTORY: Cancer Staging No matching staging information was found for the patient. Oncology History Acute myeloid leukemia in remission ([facility]) 09/03/2023 Initial Diagnosis Acute leukemia of unspecified [...] needed for Nausea/Vomiting 30 tablet 1 ??? valACYclovir (Valtrex) 500 MG tablet Take [...] No Stress: No Stress Concern Present (09/06/2023) [facility] of Occupational Health - Occupational Stress Questionnaire [...] EXAM: Wt Readings from Last 3 Encounters: 10/22/23 109.6 kg (241 lb 11.2 oz) 10/20/23 109.4 kg (241 lb 3.2 oz) 10/17/23 107.9 kg (237 lb 14.4 oz) Temp Readings from Last 3 Encounters: 10/22/23 97.8 ??F 10/20/23 97.4 ??F 10/17/23 97.5 ??F BP Readings from Last 3 Encounters: 10/22/23 118/81 10/20/23 107/72 10/17/23 123/72 Pulse Readings from Last 3 Encounters: 10/22/23 87 10/20/23 92 10/17/23 97 Physical Exam Vitals reviewed. Constitutional: General: She [...] Behavior normal. LABS: Recent Labs Component Name 10/22/23 1340 WBC 0.7* HGB 7.7* HCT 21.1* PLTCOUNT 33* Recent Labs Component Name 10/22/23 1340 10/20/23 1304 10/17/23 1352 10/14/23 1330 10/13/23 2140 10/13/23 1354 10/08/23 2152 10/07/23 2031 10/06/23 2041 10/05/23 2051 10/02/23 2132 10/01/23 2119 09/30/23200809/07/23200709/06/23 2143 09/06/23 0026 09/05/23 0909 09/04/23 0525 WBC 0.7* 0.4* 0.4* - 0.5* 0.5* - 3.7* 2.5* 3.8* - 4.1 4.1 - 0.6* 1.9* - 1.9* RBC 2.67* 2.34* 2.53* - 2.27* 2.54* - 2.48* 2.43* 2.34* - 2.36* 2.32* - 2.45* 2.46* - 2.51* HGB 7.7* 6.8* 7.5* - 6.6* 7.5* - 7.8* 7.5* 7.2* - 7.3* 7.1* - 7.9* 8.0* - 8.1* HCT 21.1* 18.3* 20.0* - 17.8* 20.2* - 22.0* 21.5* 20.9* - 21.5* 20.4* - 22.0* 22.1* - 22.6* MCV 79.0* 78.2* 79.1* - 78.4* 79.5* - 88.7 88.5 89.3 - 91.1 87.9 - 89.8 89.8 - 90.0 MCH 28.8 29.1 29.6 - 29.1 29.5 - 31.5 30.9 30.8 - 30.9 30.6 - 32.2 32.5 - 32.3 MCHC 36.5* 37.2* 37.5* - 37.1* 37.1* - 35.5 34.9 34.4 - 34.0 34.8 - 35.9 36.2 - 35.8 MPV 9.9 10.1 10.4 - 10.3 - - 10.5 10.2 10.3 - 11.4 11.0 - 11.8* 11.4 - - NEUTPCT - 2.2* - - - - - - 88.4* 71.1 - - - - - - - - MONOPCT - 2.3* - - - - - - 2.4* 13.8* - - - - - - - - EOSPCT - 0.0 - - - - - - 0.0 0.0 - - - - - - - - BASOPCT - 0.0 - - - - - - 0.0 0.0 - - - - - - - - MONO 0.10* - - - 0.01* - - 0.04* - - - 0.78 1.07* - 0.02* 0.02* - 0.02* EOS - - - - - - - - - - - 0.04 0.04 - - 0.02 - 0.02 BASO - - - - - 0.01 - - - - - - - - 0.01 - - 0.04 - = values in this interval not displayed. Recent Labs Component Name 10/22/23 1340 10/20/23 1304 10/17/23 1352 BUN 11 11 12 CREATININE 0.64 0.68 0.72 NA 140 140 141 POTASSIUM 3.6 3.2* 3.1* CL 117* 115* 116* CALCIUM 9.5 9.2 9.5 PROT 6.6 6.5 6.6 ALB 3.3* 3.3* 3.4 TBILI 0.4 0.5 0.4 ALKPHOS 85 84 86 ALT 33 37 53 AST 15 16 24 ANIONGAP 7 10 10 BCR 17 16 17 OSMOLALITY 289 292 294 EGFR >90 >90 >90 Pathology Results RESULT Normal FISH Result inv(3) or t(3;3) RPN1::MECOM Fusion: not detected Deletion 5q: not detected Monosomy 7: not detected Deletion 7q: not detected t(8;21) RUNX1::SZOG5G9 Fusion: not detected 11p15 (NUP98) Rearrangement: not detected 11q23 (KMT2A) Rearrangement: not detected inv(16) or t(16;16) CBFB::MYH11 Fusion: not detected INTERPRETATION There was no evidence of RPN1::MECOM fusion due to 3q21/3q26.2 inversion or translocation, deletion 5q31, monosomy 7, deletion 7q31, RUNX1::NTST4O5 fusion due to translocation (8;21)(q21.3;q22), 11p15 (NUP98) [...] only. Flow Cytometry Summary Concurrent flow cytometry ([id number]) shows acute myeloid leukemia. Specimens A Bone [...] agent. Report dictated by Sivakumar Garrido DO (Concaving Machine Operator). Attending Physician: Dr. Augustine Davison Housing Assistant: Dr. Sivakumar Garrido DO (Concaving Machine Operator). The procedure was performed by the: The cement tester assistant, and the attending radiologist was present [...] 38 year old female who transferred to [facility] on 09/03/2023 for suspected AML. Patient started 7 + 3 (cytarabine and idarubicin) on 09/06/2023. Now receiving HiDAC consolidation due to concern for FIRM ADMINISTRATOR involvement. 1. AML, NPM-1 mut, fav risk in CR and molecular remission after 7+3 -Pancytopenia, neutropenia -Transferred from [facility] after a BMBX showed [...] for leukemic retinal infiltration. - Labs reviewed 10/22/23; Kphos repleted. 2. Lnn-zrlaf-hje metabolic acidosis - Likely 2/2 Diamox, follow - Decreased Diamox to 250mg PO BID 10/17/23 from 500mg PO BID d/t significant metabolic acidosis on labs. - Continues with significant metabolic acidosis 10/22/23. 3. 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 - Vast improvement of creamy infiltrates of the retina in both eyes since initial exam. - Unclear etiology - Keep platelets >30K - Exam significantly improved per ophtho 10/13. - Ophtho f/u 11/20/23. 5. Dry Eyes - Per ophthalmology, possibly 2/2 dexamethasone eye drops for pt's cytarabine. - For future cycles, plan to hold dexamethasone eye drops and use artificial tears only. Current ophthalmology recs: - Start PFATs at [...] time. PLAN: - CBC 3 times a week; social work has arranged rides for patient TIW. - Labs reviewed. - Phos repleted. - Will hold dexamethasone on future HiDAC cycles due to concern that it caused pt's dry eyes - Continue Valtrex, posaconazole, and levaquin for OI ppx - Re-discussed call parameters with ANC 0. - Medication complete review with pharmacy team and patient; new MedActionPlan provided. Pt understanding of plan and has no questions at this time. - Transfusion parameters: (Leukoreduced and irradiated blood products)pRBC to keep Hgb >7 if hemodynamically stable and no bleeding. PLT transfusion to keep PLT >30K at this time due to (small)SAH, vaginal bleeding, and retinal hemorrhages. F/u: 10/24/23 for basics, ? Transfusions, and ABEL visit, 10/27/23 for basics, ? Transfusions, and on 10/29/23 for basics, ? Transfusions, and ABEL visit. Britni Winston PA-C Blood & Marrow Transplant [facility] ROOM TECHNICIAN documented in this encounter Plan of Treatment Upcoming Encounters Date Type Department Care Team (Late st Contact Info) Description 10/27/2024 10:30 AM COPY ROOM TECHNICIAN Appointment [facility] BMT CLINIC [address] [place] [address] Hussain Carias MD [address] [place] [phone] Britni Winston PA-C [address] [place] [address] 11/17/2024 9:00 AM COPY ROOM TECHNICIAN Office Visit [facility]ician Group - Ophthalmology [address] [place] [address], [place] [address] Song Hobson MD [address] [place] [address] [place] [phone] documented as of this encounter Procedures Procedure Name Priority Date/Time Associated Diagnosis Comments TYPE + SCREEN PANEL STAT 10/22/2023 3 :16 PM COPY ROOM TECHNICIAN Acute myeloid leukemia in remission (HCC) URIC ACID BLOOD STAT 10/22/2023 1:40 PM COPY ROOM TECHNICIAN Acute myeloid leukemia in remission (HCC) DIFFERENTIAL MANUAL STAT 10/22/2023 1 :40 PM COPY ROOM TECHNICIAN Acute myeloid leukemia in remission (HCC) CBC W AUTO DIFFERENTIAL STAT 10/22/2023 1:40 PM COPY ROOM TECHNICIAN Acute myeloid leukemia in remission (HCC) COMPREHENSIVE METABOLIC PANEL STAT 10/22/2023 1:40 PM COPY ROOM TECHNICIAN Acute myeloid leukemia in remission (HCC) PHOSPHORUS BLOOD STAT 10/22/2023 1:40 PM COPY ROOM TECHNICIAN Acute myeloid leukemia in remission (HCC) MAGNESIUM BLOOD STAT 10/22/2023 1:40 PM COPY ROOM TECHNICIAN Acute myeloid leukemia in remission (HCC) LDH BLOOD STAT 10/22/2023 1:40 PM COPY ROOM TECHNICIAN Acute myeloid leukemia in remission (HCC) documented in this encounter Results * TYPE + SCREEN PANEL (10/22/2023 3:16 PM COPY ROOM TECHNICIAN) Pathologist [facility] Antibody Screen NEG 4:19 PM COPY ROOM TECHNICIAN [facility] BLOOD BANK LAB ABO Rh O POS 10/22/2023 4:19 PM COPY ROOM TECHNICIAN [facility] BLOOD BANK LAB Blood Bank BLOOD SPECIMEN / Unknown Venipuncture / Unknown 10/22/2023 3:16 PM COPY ROOM TECHNICIAN 10/22/2023 3:24 PM COPY ROOM TECHNICIAN Britni Winston PA-C LAB - BLOOD BANK ORD ERABLES [facility] BLOOD BANK LAB [address] [place] [address], [facility] [phone] * (ABNORMAL) DIFFERENTIAL MANUAL (10/22/2023 1:40 PM COPY ROOM TECHNICIAN) [facility] [address] Neutrophil % 0(L) 41 - 74 % 10/22/2023 2:47 PM [facility] Lymphocyte % 85(H) 17 - 47 % 10/22/2023 2:47 PM [facility] Comment:Reactive Lymphocytes present Monocyte % 15(H) 3 - 11 % 10/22/2023 2:47 PM [facility] Neutrophil Absolute 0.00(L) 1.60 - 7.50 x10E9/L 10/22/2023 2:47 PM [facility] Lymphocyte Absolute 0.60(L) 1.00 - 4.40 x10E9/L 10/22/2023 2:47 PM [facility] Monocyte Absolute 0.10(L) 0.15 - 1.00 x10E9/L 10/22/2023 2:47 PM [facility] RBC Morphology REVIEWED 10/22/2023 2:47 PM [facility] Microcytosis MANY(A) (none) 10/22/2023 2:47 PM COPY ROOM TECHNICIAN [facility] Pappenheimer Bodies MODERATE(A) (none) 10/22/2023 2:47 PM COPY ROOM TECHNICIAN [facility] Blood BLOOD SPECIMEN / Unknown Venipuncture / Unknown 10/22/2023 1:40 PM COPY ROOM TECHNICIAN 10/22/2023 1:55 PM COPY ROOM TECHNICIAN Britni Winston PA-C LAB - HEMATOLOGY ORD ERABLES Performing Organization Address City/[facility]/ZIP Co de Phone Number [address] [address], [place] [phone] * URIC ACID BLOOD (10/22/2023 1:40 PM COPY ROOM TECHNICIAN) Uric Acid 3.4 2.6 - 6.0 mg/dL 10/22/2023 2:22 PM COPY ROOM TECHNICIAN [facility] Blood BLOOD SPECIMEN / Unknown Venipuncture / Unknown 10/22/2023 1:40 PM COPY ROOM TECHNICIAN 10/22/2023 1:56 PM COPY ROOM TECHNICIAN Britni Winston PA-C LAB - CHEMISTRY ORDE RABQI Performing Organization Address [facility]/ZIP Co de Phone Number [address] [address], [place] [phone] * LDH BLOOD (10/22/2023 1:40 PM COPY ROOM TECHNICIAN) LDH Total 182 125 - 243 Units/L 10/22/2023 2:22 PM COPY ROOM TECHNICIAN [facility] Blood BLOOD SPECIMEN / Unknown Venipuncture / Unknown 10/22/2023 1:40 PM COPY ROOM TECHNICIAN 10/22/2023 1:56 PM COPY ROOM TECHNICIAN Britni Winston PA-C LAB - CHEMISTRY ORDE RABQI Performing Organization Address [facility]/ZIP Co de Phone Number [address] [address], [place] [phone] * (ABNORMAL) CBC WITH DIFFERENTIAL (10/22/2023 1:40 PM COPY ROOM TECHNICIAN) WBC 0.7(LL) 4.0 - 10.7 x10E9/L 10/22/2023 2:47 PM [facility] RBC Count 2.67(L) 3.90 - 5.20 x10E12/L 10/22/2023 2:47 PM [facility] Hemoglobin 7.7(L) 11.9 - 15.8 g/dL 10/22/2023 2:47 PM [facility] Hematocrit 21.1(L) 34.8 - 46.1 % 10/22/2023 2:47 PM [facility] MCV 79.0(L) 80.0 - 98.0 fL 10/22/2023 2:47 PM [facility] MCH 28.8 26.7 - 33.6 pg 10/22/2023 2:47 PM [facility] MCHC 36.5(H) 31.7 - 36.3 g/dL 10/22/2023 2:47 PM [facility] RDW-CV 12.5 11.3 - 14.8 % 10/22/2023 2:47 PM [facility] Platelet Count 33(L) 150 - 420 x10E9/L 10/22/2023 2:47 PM [facility] MPV 9.9 7.8 - 11.4 fL 10/22/2023 2:47 PM [facility] Preliminary Absolute Neutrophil 0.00(L) 1.60 - 7.50 x10E9/L 10/22/2023 2:47 PM [facility] Blood BLOOD SPECIMEN / Unknown Venipuncture / Unknown 10/22/2023 1:40 PM COPY ROOM TECHNICIAN 10/22/2023 1:55 PM [facility] Britni Winston PA-C LAB - HEMATOLOGY ORD ERABLES [facility] [address] [place] [address], [facility] [phone] * MAGNESIUM BLOOD (10/22/2023 1:40 PM COPY ROOM TECHNICIAN) Magnesium 1.6 1.6 - 2.6 mg/dL 10/22/2023 2:22 PM [facility] Blood BLOOD SPECIMEN / Unknown Venipuncture / Unknown 10/22/2023 1:40 PM COPY ROOM TECHNICIAN 10/22/2023 1:56 PM COPY ROOM TECHNICIAN Britni Winston PA-C LAB - CHEMISTRY JON NAIDU [facility] [address] [place] [address], [facility] [phone] * (ABNORMAL) COMPREHENSIVE METABOLIC PANEL (10/22/2023 1:40 PM COPY ROOM TECHNICIAN) BUN 11 7 - 26 mg/dL 10/22/2023 2:22 PM [facility] Creatinine 0.64 0.56 - 0.96 mg/dL 10/22/2023 2:22 PM [facility] Sodium 140 136 - 145 mmol/L 10/22/2023 2:22 PM [facility] Potassium 3.6 3.5 - 4.5 mmol/L 10/22/2023 2:22 PM [facility] Chloride 117(H) 98 - 107 mmol/L 10/22/2023 2:22 PM [facility] CO2 16(L) 22 - 29 mmol/L 10/22/2023 2:22 PM [facility] Glucose 92 70 - 115 mg/dL 10/22/2023 2:22 PM [facility] Calcium 9.5 8.4 - 10.2 mg/dL 10/22/2023 2:22 PM [facility] Protein Total 6.6 6.0 - 8.3 g/dL 10/22/2023 2:22 PM [facility] Albumin 3.3(L) 3.4 - 5.0 g/dL 10/22/2023 2:22 PM [facility] Bilirubin Total 0.4 0.2 - 1.2 mg/dL 10/22/2023 2:22 PM [facility] Alkaline Phosphatase 85 40 - 150 U/L 10/22/2023 2:22 PM [facility] ALT 33 5 - 55 U/L 10/22/2023 2:22 PM [facility] AST 15 5 - 34 U/L 10/22/2023 2:22 PM [facility] Anion Gap 7 6 - 16 10/22/2023 2:22 PM [facility] BUN/Creatinine Ratio 17 7 - 23 10/22/2023 2:22 PM [facility] Osmolality Calculated 289 275 - 295 mOsm/kg 10/22/2023 2:22 PM [facility] Albumin/Globulin Ratio 1.0(L) 1.1 - 2.3 10/22/2023 2:22 PM [facility] eGFR by CKD-EPI >90 >=90 mL/min/1.7 3 m2 10/22/2023 2:22 PM [facility] Blood BLOOD SPECIMEN / Unknown Venipuncture / Unknown 10/22/2023 1:40 PM COPY ROOM TECHNICIAN 10/22/2023 1:56 PM COPY ROOM TECHNICIAN Britni Winston PA-C LAB - CHEMISTRY JON NAIDU Performing Organization Address City/[facility]/ZIP Co de Phone Number [facility] [address] [place] [address], [place] [phone] * (ABNORMAL) PHOSPHORUS BLOOD (10/22/2023 1:40 PM COPY ROOM TECHNICIAN) Phosphorus 2.3(L) 2.9 - 5.1 mg/dL 10/22/2023 2:22 PM [facility] Blood BLOOD SPECIMEN / Unknown Venipuncture / Unknown 10/22/2023 1:40 PM COPY ROOM TECHNICIAN 10/22/2023 1:56 PM COPY ROOM TECHNICIAN Britni Winston PA-C LAB - CHEMISTRY JON NAIDU [facility] [address] [place] [address], [place] [phone] documented in this encounter Visit Diagnoses Diagnosis 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 documented in this encounter Administered Medications Inactive Administered Medications - up to 3 most recent administrations Medication Order MAR Action Action Date Dose Rate Site sodium - potassium phosphates (K Phos Neutral) tablet 2 tablet 2 tablet, Oral, ONCE, 1 dose, On Fri10/22/23 at 1515, Contains Phos 8 mmol, K+ 1.1 mEq, Na 13 mEq per tablet $ Given 10/22/2023 3:11 PM COPY ROOM TECHNICIAN 2 tablets documented in this encounter Care Teams Operational Test Mechanic Relationship Specialty Start Date End Date Nilam Mayers MD [address] [place] [phone] PCP - General Family Medicine 09/04/23 04/18/24 documented as of this encounter
--- OUTSIDE RECORDS SUMMARY | 2024-08-31 21:30 | XMS_ITS | Encounter Summary ---
Author Organization [facility] Health Address [facility]3 [facility] [place] [address] Care Team Providers Care Eating Disorder Psychologist Name Role Phone Nilam Mayers MD Primary Care Provider +1- [phone] Encounter Details Date Type Department Care Team (Latest Contact Info) Description 10/17/2023 Travel Social History Tobacco Use Types Packs/Day [...] care, and heating? Not very hard 09/06/2023 [facility] [place] of Occupat ional Health - Occupational Stress [...] slept in a correction (including now)? No 09/06/2023 Sex and Gender [...] st Contact Info) Description 10/27/2024 10:30 AM PIG FARM MANAGER Appointment [facility] [address] [place] [address] Hussain Carias MD [address] [place] [phone] Britni Winston, PABaronC [address] [place] [address] 11/17/2024 9:00 AM PIG FARM MANAGER Office Visit [facility] - Ophthalmology [address] [place] [phone] Song Hobson MD [address] [place] [address] [place] [address] documented as of this encounter Visit Diagnoses Not on filedocumented in this encounter Care Teams Eating Disorder Psychologist Relationship Specialty Start Date End Date Nilam Mayers MD [address] [place] [phone] PCP - General Family Medicine 09/04/23 04/18/24 documented as of this encounter
--- OUTSIDE RECORDS SUMMARY | 2024-08-31 21:30 | XMS_ITS | Encounter Summary ---
Author Organization [facility] Health Address [facility]3 [facility] [place] [address] Care Team Providers Care Dater Assembler Name Role Phone Nilam Mayers MD Primary Care Provider +1- [phone] Encounter Details Date Type Department Care Team (Latest Contact Info) Description 10/24/2023 Travel Social History Tobacco Use Types Packs/Day [...] care, and heating? Not very hard 09/06/2023 [facility] [place] of Occupat ional Health - Occupational Stress [...] in a nursing home (including now)? No 09/06/2023 Sex and [...] st Contact Info) Description 10/27/2024 10:30 AM HOME HEALTH PROVIDER Appointment [facility] [address] [place] [address] Hussain Carias MD [address] [place] [phone] Britni Winston, PABaronC [address] [place] [address] 11/17/2024 9:00 AM HOME HEALTH PROVIDER Office Visit [facility] Physician Group - Ophthalmology [address] [place] [phone] Song Hobson MD [address] [place] [address] [place] [address] documented as of this encounter Visit Diagnoses Not on filedocumented in this encounter Care Teams Dater Assembler Relationship Specialty Start Date End Date Nilam Mayers MD [address] [place] [phone] PCP - General Family Medicine 09/04/23 04/18/24 documented as of this encounter
--- OUTSIDE RECORDS SUMMARY | 2024-08-31 21:30 | XMS_ITS | Encounter Summary ---
Author Organization [facility] Address [address] [place] [address] [place] [address] Care Team Providers Care Rivet Catcher Name Role Phone Nilam Mayers MD Primary Care Provider +1- [phone] Encounter Details Date Type Department Care Team (Latest Contact Info) Description 11/03/2023 Travel Social History Tobacco Use Types Packs/Day [...] care, and heating? Not very hard 11/03/2023 [facility] [place] of Occupat ional Health - Occupational Stress [...] st Contact Info) Description 10/27/2024 10:30 AM STAMP COLLECTOR Appointment [facility] [address] [place] [address] Hussain Carias MD [address] [place] [phone] Britni Winston, PABaronC [address] [place] [address] 11/17/2024 9:00 AM STAMP COLLECTOR Office Visit [facility] Physician Group - Ophthalmology [address] [place] [phone] Song Hobson MD [address] [place] [address] [place] [address] documented as of this encounter Visit Diagnoses Not on filedocumented in this encounter Care Teams Rivet Catcher Relationship Specialty Start Date End Date Nilam Mayers MD [address] [place] [phone] PCP - General Family Medicine 09/04/23 04/18/24 documented as of this encounter
--- OUTSIDE RECORDS SUMMARY | 2024-08-31 21:30 | XMS_ITS | Encounter Summary ---
Author Organization [facility] Health Address [facility]3 [facility] [place] [address] Care Team Providers Care Business Integration Analyst Name Role Phone Nilam Mayers MD Primary Care Provider +1- [phone] Encounter Details Date Type Department Care Team (Latest Contact Info) Description 10/29/2023 Travel Social History Tobacco Use Types Packs/Day [...] care, and heating? Not very hard 09/06/2023 [facility] [place] of Occupat ional Health - Occupational Stress [...] slept in a long-term (including now)? No 09/06/2023 Sex and Gender [...] st Contact Info) Description 10/27/2024 10:30 AM CD MIXER Appointment [facility] [address] [place] [address] Hussain Carias MD [address] [place] [phone] Britni Winston, PABaronC [address] [place] [address] 11/17/2024 9:00 AM CD MIXER Office Visit [facility] Physician Group - Ophthalmology [address] [place] [phone] Song Hobson MD [address] [place] [address] [place] [address] documented as of this encounter Visit Diagnoses Not on filedocumented in this encounter Care Teams Business Integration Analyst Relationship Specialty Start Date End Date Nilma Mayers MD [address] [place] [phone] PCP - General Family Medicine 09/04/23 04/18/24 documented as of this encounter
--- OUTSIDE RECORDS SUMMARY | 2024-08-31 21:30 | XMS_ITS | Encounter Summary ---
Author Organization [facility] Address [address] [place] [address] Care Team Providers Care District Wire Chief Name Role Phone Nilam Mayers MD Primary Care Provider +1- [phone] Encounter Details Date Type Department Care Team (Latest Contact Info) Description 10/27/2023 1:53 PM SPACE SYSTEMS OPERATIONS MANAGER - 10/27/2023 11:59 PM [facility] Hospital Encounter [facility] [address] [place] [address] Hussain Carias MD [address] [place] [address] Britni Winston, PABaronC [address] [place] [address] Discharge Disposition: Home or Self [...] care, and heating? Not very hard 09/06/2023 [facility] [place] of Occupat ional Health - Occupational Stress [...] Sign Reading Time Taken Comments Blood Pressure 149/97 10/27/2023 2:05 PM SPACE SYSTEMS OPERATIONS MANAGER Pulse 99 10/27/2023 2:05 PM SPACE SYSTEMS OPERATIONS MANAGER Temperature 36.8 ??C (98.3 ??F) 10/27/2023 2:05 PM CS T Respiratory Rate 18 10/27/2023 2:05 PM SPACE SYSTEMS OPERATIONS MANAGER Oxygen Saturation 100% 10/27/2023 2:05 PM SPACE SYSTEMS OPERATIONS MANAGER Inhaled Oxygen Concentration - - Weight 111.9 kg (246 lb 9.6 oz) 10/27/2023 2:05 PM SPACE SYSTEMS OPERATIONS MANAGER Height - - Body Mass Index 45.1 10/13/2023 5:23 PM SPACE SYSTEMS OPERATIONS MANAGER documented in this encounter Functional Status [...] No 10/09/2023 documented as of this encounter Medications at [...] st Contact Info) Description 10/27/2024 10:30 AM SPACE SYSTEMS OPERATIONS MANAGER Appointment [facility] [address] [place] [address] Hussain Carias MD [facility] [place] [phone] Britni Winston PABaronC [address] [place] [address] 11/17/2024 9:00 AM SPACE SYSTEMS OPERATIONS MANAGER Office Visit [facility] Physician Group - Ophthalmology [address] [place] [phone] Song Hobson MD [address] [place] [address] [place] [phone] documented as of this encounter Procedures Procedure Name Priority Date/Time Associated Diagnosis Comments URIC ACID BLOOD STAT 10/27/2023 2:09 PM SPACE SYSTEMS OPERATIONS MANAGER Acute myeloid leukemia in remission (HCC) DIFFERENTIAL MANUAL STAT 10/27/2023 2 :09 PM SPACE SYSTEMS OPERATIONS MANAGER Acute myeloid leukemia in remission (HCC) CBC W AUTO DIFFERENTIAL STAT 10/27/2023 2:09 PM SPACE SYSTEMS OPERATIONS MANAGER Acute myeloid leukemia in remission (HCC) COMPREHENSIVE METABOLIC PANEL STAT 10/27/2023 2:09 PM SPACE SYSTEMS OPERATIONS MANAGER Acute myeloid leukemia in remission (HCC) PHOSPHORUS BLOOD STAT 10/27/2023 2:09 PM SPACE SYSTEMS OPERATIONS MANAGER Acute myeloid leukemia in remission (HCC) MAGNESIUM BLOOD STAT 10/27/2023 2:09 PM SPACE SYSTEMS OPERATIONS MANAGER Acute myeloid leukemia in remission (HCC) LDH BLOOD STAT 10/27/2023 2:09 PM SPACE SYSTEMS OPERATIONS MANAGER Acute myeloid leukemia in remission (HCC) documented in this encounter Results * (ABNORMAL) DIFFERENTIAL MANUAL (10/27/2023 2:09 PM SPACE SYSTEMS OPERATIONS MANAGER) Neutrophil % 14(L) 41 - 74 % 10/27/2023 3:30 PM [facility] Lymphocyte % 44 17 - 47 % 10/27/2023 3:30 PM [facility] Monocyte % 41(H) 3 - 11 % 10/27/2023 3:30 PM [facility] Myelocyte % 1(H) 0% % 10/27/2023 3:30 PM [facility] Neutrophil Absolute 0.39(L) 1.60 - 7.50 x10E9/L 10/27/2023 3:30 PM [facility] Lymphocyte Absolute 1.23 1.00 - 4.40 x10E9/L 10/27/2023 3:30 PM [facility] Monocyte Absolute 1.15(H) 0.15 - 1.00 x10E9/L 10/27/2023 3:30 PM [facility] RBC Morphology REVIEWED 10/27/2023 3:30 PM [facility] Microcytosis MANY(A) (none) 10/27/2023 3:30 PM [facility] Blood BLOOD SPECIMEN / Unknown Venipuncture / Unknown 10/27/2023 2:09 PM SPACE SYSTEMS OPERATIONS MANAGER 10/27/2023 2:12 PM SPACE SYSTEMS OPERATIONS MANAGER Britni Winston PA-C LAB - HEMATOLOGY ORD ERABLES [facility] [address] [place] [address], [place] [phone] * URIC ACID BLOOD (10/27/2023 2:09 PM SPACE SYSTEMS OPERATIONS MANAGER) [facility] Uric Acid 3.4 2.6 - 6.0 mg/dL 10/27/2023 2:42 PM SPACE SYSTEMS OPERATIONS MANAGER [facility] Blood BLOOD SPECIMEN / Unknown Venipuncture / Unknown 10/27/2023 2:09 PM SPACE SYSTEMS OPERATIONS MANAGER 10/27/2023 2:12 PM SPACE SYSTEMS OPERATIONS MANAGER Britni Winston PA-C LAB - CHEMISTRY [facility] [address] [address], [place] [phone] * (ABNORMAL) LDH BLOOD (10/27/2023 2:09 PM SPACE SYSTEMS OPERATIONS MANAGER) [facility] LDH Total 262(H) 125 - 243 Units/L 10/27/2023 2:42 PM SPACE SYSTEMS OPERATIONS MANAGER [facility] Blood BLOOD SPECIMEN / Unknown Venipuncture / Unknown 10/27/2023 2:09 PM SPACE SYSTEMS OPERATIONS MANAGER 10/27/2023 2:12 PM SPACE SYSTEMS OPERATIONS MANAGER Britni Winston PA-C LAB - CHEMISTRY [facility] [address] [address], [place] [phone] * (ABNORMAL) CBC WITH DIFFERENTIAL (10/27/2023 2:09 PM SPACE SYSTEMS OPERATIONS MANAGER) [facility] WBC 2.8(L) 4.0 - 10.7 x10E9/L 10/27/2023 3:30 PM SPACE SYSTEMS OPERATIONS MANAGER [facility] RBC Count 2.48(L) 3.90 - 5.20 x10E12/L 10/27/2023 3:30 PM [facility] Hemoglobin 7.3(L) 11.9 - 15.8 g/dL 10/27/2023 3:30 PM SPACE SYSTEMS OPERATIONS MANAGER [facility] Hematocrit 19.7(L) 34.8 - 46.1 % 10/27/2023 3:30 PM [facility] MCV 79.4(L) 80.0 - 98.0 fL 10/27/2023 3:30 PM [facility] MCH 29.4 26.7 - 33.6 pg 10/27/2023 3:30 PM [facility] MCHC 37.1(H) 31.7 - 36.3 g/dL 10/27/2023 3:30 PM [facility] RDW-CV 12.3 11.3 - 14.8 % 10/27/2023 3:30 PM [facility] Platelet Count 51(L) 150 - 420 x10E9/L 10/27/2023 3:30 PM [facility] MPV 11.8(H) 7.8 - 11.4 fL 10/27/2023 3:30 PM [facility] Preliminary Absolute Neutrophil 0.45(L) 1.60 - 7.50 x10E9/L 10/27/2023 3:30 PM [facility] NRBC 2.5(H) <=0.0 /100 WBC 10/27/2023 3:30 PM [facility] Blood BLOOD SPECIMEN / Unknown Venipuncture / Unknown 10/27/2023 2:09 PM SPACE SYSTEMS OPERATIONS MANAGER 10/27/2023 2:12 PM SPACE SYSTEMS OPERATIONS MANAGER Britni Winston PA-C LAB - HEMATOLOGY ORD ERAJANES Performing Organization Address City/State/[facility] Co de Phone Number [facility] [address] [place] [phone], [facility] [phone] * (ABNORMAL) MAGNESIUM BLOOD (10/27/2023 2:09 PM SPACE SYSTEMS OPERATIONS MANAGER) Magnesium 1.5(L) 1.6 - 2.6 mg/dL 10/27/2023 2:42 PM [facility] Blood BLOOD SPECIMEN / Unknown Venipuncture / Unknown 10/27/2023 2:09 PM SPACE SYSTEMS OPERATIONS MANAGER 10/27/2023 2:12 PM SPACE SYSTEMS OPERATIONS MANAGER Britni Winston PA-C LAB - CHEMISTRY ORDE ELYSIA [facility] [address] [place] [address], [facility] [phone] * (ABNORMAL) COMPREHENSIVE METABOLIC PANEL (10/27/2023 2:09 PM [facility]) BUN 9 7 - 26 mg/dL 10/27/2023 2:42 PM [facility] Creatinine 0.51(L) 0.56 - 0.96 mg/dL 10/27/2023 2:42 PM [facility] Sodium 143 136 - 145 mmol/L 10/27/2023 2:42 PM [facility] Potassium 3.1(L) 3.5 - 4.5 mmol/L 10/27/2023 2:42 PM [facility] Chloride 111(H) 98 - 107 mmol/L 10/27/2023 2:42 PM [facility] CO2 25 22 - 29 mmol/L 10/27/2023 2:42 PM [facility] Glucose 96 70 - 115 mg/dL 10/27/2023 2:42 PM [facility] Calcium 9.3 8.4 - 10.2 mg/dL 10/27/2023 2:42 PM [facility] Protein Total 6.4 6.0 - 8.3 g/dL 10/27/2023 2:42 PM [facility] Albumin 3.1(L) 3.4 - 5.0 g/dL 10/27/2023 2:42 PM [facility] Bilirubin Total 0.3 0.2 - 1.2 mg/dL 10/27/2023 2:42 PM [facility] Alkaline Phosphatase 77 40 - 150 U/L 10/27/2023 2:42 PM [facility] ALT 32 5 - 55 U/L 10/27/2023 2:42 PM [facility] AST 22 5 - 34 U/L 10/27/2023 2:42 PM [facility] Anion Gap 7 6 - 16 10/27/2023 2:42 PM [facility] BUN/Creatinine Ratio 18 7 - 23 10/27/2023 2:42 PM [facility] Osmolality Calculated 295 275 - 295 mOsm/kg 10/27/2023 2:42 PM SPACE SYSTEMS OPERATIONS MANAGER [facility] Albumin/Globulin Ratio 0.9(L) 1.1 - 2.3 10/27/2023 2:42 PM SPACE SYSTEMS OPERATIONS MANAGER [facility] eGFR by CKD-EPI >90 >=90 mL/min/1.7 3 m2 10/27/2023 2:42 PM SPACE SYSTEMS OPERATIONS MANAGER [facility] Blood BLOOD SPECIMEN / Unknown Venipuncture / Unknown 10/27/2023 2:09 PM SPACE SYSTEMS OPERATIONS MANAGER 10/27/2023 2:12 PM SPACE SYSTEMS OPERATIONS MANAGER Britni Winston PA-C LAB - CHEMISTRY [facility] [address] [address], [place] [phone] * (ABNORMAL) PHOSPHORUS BLOOD (10/27/2023 2:09 PM SPACE SYSTEMS OPERATIONS MANAGER) Phosphorus 2.0(L) 2.9 - 5.1 mg/dL 10/27/2023 2:42 PM SPACE SYSTEMS OPERATIONS MANAGER [facility] Blood BLOOD SPECIMEN / Unknown Venipuncture / Unknown 10/27/2023 2:09 PM SPACE SYSTEMS OPERATIONS MANAGER 10/27/2023 2:12 PM SPACE SYSTEMS OPERATIONS MANAGER Britni Winston PA-C LAB - CHEMISTRY [facility] Performing Organization Address City/[facility]/ZIP Co de Phone Number [address] [address], [place] [phone] documented in this encounter Visit Diagnoses Diagnosis 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 documented in this encounter Administered Medications Inactive Administered Medications - up to 3 most recent administrations Medication Order MAR Action Action Date Dose Rate Site potassium chloride ER (Klor-Con M) tablet 40 mEq 40 mEq, Oral, ONCE, 1 dose, On Fri10/27/23 at 1515, Do not crush or chew. $ Given 10/27/2023 2:54 PM SPACE SYSTEMS OPERATIONS MANAGER 40 mEq sodium - potassium phosphates (K Phos Neutral) tablet 2 tablet 2 tablet, Oral, ONCE, 1 dose, On Fri10/27/23 at 1515, Contains Phos 8 mmol, K+ 1.1 mEq, Na 13 mEq per tablet $ Given 10/27/2023 2:54 PM SPACE SYSTEMS OPERATIONS MANAGER 2 tablets documented in this encounter Care Teams District Wire Chief Relationship Specialty Start Date End Date Nilam Mayers MD [address] [place] [phone] PCP - General Family Medicine 09/04/23 04/18/24 documented as of this encounter
--- OUTSIDE RECORDS SUMMARY | 2024-08-31 21:30 | XMS_ITS | Encounter Summary ---
Author Organization [facility] Address [address] [place] [address] Care Team Providers Care Truck Engine Technician Name Role Phone Nilam Mayers MD Primary Care Provider [phone] Encounter Details Date Type Department Care Team (Latest Contact Info) Description 10/24/2023 11:49 AM PROMOTIONS SPECIALIST - 10/24/2023 11:59 PM [facility] Hospital Encounter [facility] [address] [place] [address] Hussain Carias MD [address] [place] [address] Kathryn Gomez, DREDGEMASTER-PACKING ROOM SUPERVISOR [address] [place] [address] Discharge Disposition: Home or Self Care Social [...] monthly 09/03/2023 Overall Financial Resource Strain (CARDIA) Sarae r Date Recorded How hard is it for you to pa y for the very basics like food, housing, medical care, and heating? Not very hard 09/06/2023 [facility] of Occupat ional Health - Occupational Stress [...] Sign Reading Time Taken Comments Blood Pressure 126/75 10/24/2023 1:00 PM PROMOTIONS SPECIALIST Pulse 101 10/24/2023 1:00 PM PROMOTIONS SPECIALIST Temperature 36.4 ??C (97.5 ??F) 10/24/2023 1:00 PM CS T Respiratory Rate 20 10/24/2023 1:00 PM PROMOTIONS SPECIALIST Oxygen Saturation 100% 10/24/2023 1:00 PM PROMOTIONS SPECIALIST Inhaled Oxygen Concentration - - Weight 109.5 kg (241 lb 4.8 oz) 10/24/2023 1:00 PM PROMOTIONS SPECIALIST Height - - Body Mass Index 44.13 10/13/2023 5:23 PM PROMOTIONS SPECIALIST documented in this encounter Functional Status Functional [...] * Patient Instructions* Britni Winston PA-C - 10/24/2023 1:11 PM PROMOTIONS SPECIALIST Thank you for entrusting your healthcare to the physicians and other specialists at the [facility]. [facility] Hematology/Oncology Clinic: [phone] RN: Alyson Butcher or Beronica Lilly For symptom management or prescription questions during business hours (Mon-Fri 8AM-4:30PM), pleasecall the clinic frontend engineer ([phone]) and your message will be routed to your RN. Outside of business hours, please call the hematology/oncology doctor on-call. If you have an urgent need during business hours please make sure to speak with a front office director so your message is routed urgently to a nurse. Hem/Onc Doctor On-Call (After hours, weekends, holidays): [phone], Dial [phone] (Communications Equipment Operator) and askfor the hematology/oncology fellow on-call and [...] room: New chest pain or difficulty breathing OTIONS SPECIALIST documented in this encounter Medications at Time [...] as of this encounter Progress Notes * Becky Quiroz RPhT - 10/24/2023 1:11 PM CST MEDICATION TO BEDSIDE DELIVERY: COMPLETE Medication to Bedside delivery was completed for Sarah Mckeon. ??? A total of 1 prescriptions were delivered to the patient for discharge. ??? Medications were given to NURSE (RICARDO) ??? This delivery included a controlled substance: NO ??? This delivery included medication that should be stored in the fridge: NO Thank you for allowing the outpatient pharmacy to participate in the care of Sarah Mckeon. If you have any questions, please contact the outpatient pharmacy at [phone]. Minnie Parra [facility] at [address], First Floor [place], [place] [address] Hours of Operation Friday - Friday: 8:00am to 6:00pm Friday: 9:00am to 1:00pm Epic: [facility] *Ensure the patient and clinic's nearby ZIP codes box is unchecked* OTIONS SPECIALIST documented in this encounter Plan of Treatment Upcoming Encounters Date Type Department Care Team (Late st Contact Info) Description 10/27/2024 10:30 AM PROMOTIONS SPECIALIST Appointment [facility] [address] [place] [address] Hussain Carias MD [address] [place] [address] Britni Winston PA-C [address] [place] [address] 11/17/2024 9:00 AM PROMOTIONS SPECIALIST Office Visit [facility] - Ophthalmology [address] [facility] [place] [address] Song Hobson MD [address] [facility] [place] [phone] documented as of this encounter Procedures Procedure Name Priority Date/Time Associated Diagnosis Comments URIC ACID BLOOD STAT 10/24/2023 12:12 PM PROMOTIONS SPECIALIST Acute myeloid leukemia in remission (HCC) TYPE + SCREEN PANEL STAT 10/24/2023 1 2:12 PM PROMOTIONS SPECIALIST Acute myeloid leukemia in remission (HCC) DIFFERENTIAL MANUAL STAT 10/24/2023 1 2:12 PM PROMOTIONS SPECIALIST Acute myeloid leukemia in remission (HCC) CBC W AUTO DIFFERENTIAL STAT 10/24/2023 12:12 PM PROMOTIONS SPECIALIST Acute myeloid leukemia in remission (HCC) COMPREHENSIVE METABOLIC PANEL STAT 10/24/2023 12:12 PM PROMOTIONS SPECIALIST Acute myeloid leukemia in remission (HCC) PHOSPHORUS BLOOD STAT 10/24/2023 12:1 2 PM PROMOTIONS SPECIALIST Acute myeloid leukemia in remission (HCC) MAGNESIUM BLOOD STAT 10/24/2023 12:12 PM PROMOTIONS SPECIALIST Acute myeloid leukemia in remission (HCC) LDH BLOOD STAT 10/24/2023 12:12 PM PROMOTIONS SPECIALIST Acute myeloid leukemia in remission (HCC) documented in this encounter Results * (ABNORMAL) DIFFERENTIAL MANUAL (10/24/2023 12:12 PM PROMOTIONS SPECIALIST) Neutrophil % 4(L) 41 - 74 % 10/24/2023 2:18 PM [facility] Lymphocyte % 57(H) 17 - 47 % 10/24/2023 2:18 PM [facility] Monocyte % 38(H) 3 - 11 % 10/24/2023 2:18 PM [facility] Myelocyte % 1(H) 0% % 10/24/2023 2:18 PM [facility] Neutrophil Absolute 0.05(L) 1.60 - 7.50 x10E9/L 10/24/2023 2:18 PM [facility] Lymphocyte Absolute 0.74(L) 1.00 - 4.40 x10E9/L 10/24/2023 2:18 PM [facility] Monocyte Absolute 0.49 0.15 - 1.00 x10E9/L 10/24/2023 2:18 PM [facility] RBC Morphology REVIEWED 10/24/2023 2:18 PM [facility] Microcytosis MANY(A) (none) 10/24/2023 2:18 PM [facility] Schistocytes FEW(A) (none) 10/24/2023 2:18 PM [facility] Blood BLOOD SPECIMEN / Unknown Venipuncture / Unknown 10/24/2023 12:12 PM PROMOTIONS SPECIALIST 10/24/2023 12:20 PM PROMOTIONS SPECIALIST Britni Winston PA-C LAB - HEMATOLOGY ORD ERABLES Performing Organization Address City/[facility] Co de Phone Number [address] [address], [facility] [phone] * TYPE + SCREEN PANEL (10/24/2023 12:12 PM PROMOTIONS SPECIALIST) Antibody Screen NEG 1:06 PM [facility] BLOOD BANK LAB ABO Rh O POS 10/24/2023 1:06 PM [facility] BLOOD BANK LAB Blood Bank BLOOD SPECIMEN / Unknown Venipuncture / Unknown 10/24/2023 12:12 PM PROMOTIONS SPECIALIST 10/24/2023 12:27 PM PROMOTIONS SPECIALIST Britni Winston PA-C LAB - BLOOD BANK ORD ERABLES [facility] [address] [place] [address], [place] [phone] * URIC ACID BLOOD (10/24/2023 12:12 PM PROMOTIONS SPECIALIST) Pathologist [facility] Uric Acid 3.5 2.6 - 6.0 mg/dL 10/24/2023 12:50 PM PROMOTIONS SPECIALIST [facility] Blood BLOOD SPECIMEN / Unknown Venipuncture / Unknown 10/24/2023 12:12 PM PROMOTIONS SPECIALIST 10/24/2023 12:20 PM PROMOTIONS SPECIALIST Britni Winston PA-C LAB - CHEMISTRY JON NAIDU [facility] [address] [place] [address], [place] [phone] * LDH BLOOD (10/24/2023 12:12 PM PROMOTIONS SPECIALIST) [facility] LDH Total 207 125 - 243 Units/L 10/24/2023 12:50 PM PROMOTIONS SPECIALIST [facility] Blood BLOOD SPECIMEN / Unknown Venipuncture / Unknown 10/24/2023 12:12 PM PROMOTIONS SPECIALIST 10/24/2023 12:20 PM PROMOTIONS SPECIALIST Britni Winston PA-C LAB - CHEMISTRY JON NAIDU Performing Organization Address City/[facility]/ZIP Co de Phone Number [address] [address], [place] [phone] * (ABNORMAL) CBC WITH DIFFERENTIAL (10/24/2023 12:12 PM PROMOTIONS SPECIALIST) Pathologist [facility] WBC 1.3(L) 4.0 - 10.7 x10E9/L 10/24/2023 2:18 PM [facility] RBC Count 2.69(L) 3.90 - 5.20 x10E12/L 10/24/2023 2:18 PM [facility] Hemoglobin 7.8(L) 11.9 - 15.8 g/dL 10/24/2023 2:18 PM [facility] Hematocrit 21.1(L) 34.8 - 46.1 % 10/24/2023 2:18 PM [facility] MCV 78.4(L) 80.0 - 98.0 fL 10/24/2023 2:18 PM [facility] MCH 29.0 26.7 - 33.6 pg 10/24/2023 2:18 PM [facility] MCHC 37.0(H) 31.7 - 36.3 g/dL 10/24/2023 2:18 PM [facility] RDW-CV 12.6 11.3 - 14.8 % 10/24/2023 2:18 PM [facility] Platelet Count 34(L) 150 - 420 x10E9/L 10/24/2023 2:18 PM [facility] MPV 10.8 7.8 - 11.4 fL 10/24/2023 2:18 PM [facility] Preliminary Absolute Neutrophil 0.05(L) 1.60 - 7.50 x10E9/L 10/24/2023 2:18 PM [facility] NRBC 2.3(H) <=0.0 /100 WBC 10/24/2023 2:18 PM [facility] Blood BLOOD SPECIMEN / Unknown Venipuncture / Unknown 10/24/2023 12:12 PM PROMOTIONS SPECIALIST 10/24/2023 12:20 PM PROMOTIONS SPECIALIST Britni Winston PA-C LAB - HEMATOLOGY ORD GELY Performing Organization Address [facility] Co de Phone Number [facility] [address] [place] [phone], [facility] [phone] * MAGNESIUM BLOOD (10/24/2023 12:12 PM PROMOTIONS SPECIALIST) Magnesium 1.6 1.6 - 2.6 mg/dL 10/24/2023 12:50 PM [facility] Blood BLOOD SPECIMEN / Unknown Venipuncture / Unknown 10/24/2023 12:12 PM PROMOTIONS SPECIALIST 10/24/2023 12:20 PM PROMOTIONS SPECIALIST Britni Winston PA-C LAB - CHEMISTRY ORDE ELYSIA [facility] [address] [place] [address], [facility] [phone] * (ABNORMAL) COMPREHENSIVE METABOLIC PANEL (10/24/2023 12:12 PM [facility]) BUN 10 7 - 26 mg/dL 10/24/2023 12:50 PM [facility] Creatinine 0.71 0.56 - 0.96 mg/dL 10/24/2023 12:50 PM [facility] Sodium 143 136 - 145 mmol/L 10/24/2023 12:50 PM [facility] Potassium 3.5 3.5 - 4.5 mmol/L 10/24/2023 12:50 PM [facility] Chloride 117(H) 98 - 107 mmol/L 10/24/2023 12:50 PM [facility] CO2 17(L) 22 - 29 mmol/L 10/24/2023 12:50 PM [facility] Glucose 102 70 - 115 mg/dL 10/24/2023 12:50 PM [facility] Calcium 9.7 8.4 - 10.2 mg/dL 10/24/2023 12:50 PM [facility] Protein Total 6.6 6.0 - 8.3 g/dL 10/24/2023 12:50 PM [facility] Albumin 3.2(L) 3.4 - 5.0 g/dL 10/24/2023 12:50 PM [facility] Bilirubin Total 0.3 0.2 - 1.2 mg/dL 10/24/2023 12:50 PM [facility] Alkaline Phosphatase 84 40 - 150 U/L 10/24/2023 12:50 PM [facility] ALT 32 5 - 55 U/L 10/24/2023 12:50 PM [facility] AST 18 5 - 34 U/L 10/24/2023 12:50 PM [facility] Anion Gap 9 6 - 16 10/24/2023 12:50 PM [facility] BUN/Creatinine Ratio 14 7 - 23 10/24/2023 12:50 PM [facility] Osmolality Calculated 295 275 - 295 mOsm/kg 10/24/2023 12:50 PM [facility] Albumin/Globulin Ratio 0.9(L) 1.1 - 2.3 10/24/2023 12:50 PM PROMOTIONS SPECIALIST [facility] eGFR by CKD-EPI >90 >=90 mL/min/1.7 3 m2 10/24/2023 12:50 PM PROMOTIONS SPECIALIST [facility] Blood BLOOD SPECIMEN / Unknown Venipuncture / Unknown 10/24/2023 12:12 PM PROMOTIONS SPECIALIST 10/24/2023 12:20 PM PROMOTIONS SPECIALIST Britni Winston PA-C LAB - CHEMISTRY JON NAIDU [facility] [address] [place] [address], [facility] [phone] * (ABNORMAL) PHOSPHORUS BLOOD (10/24/2023 12:12 PM PROMOTIONS SPECIALIST) Phosphorus 1.9(L) 2.9 - 5.1 mg/dL 10/24/2023 12:50 PM PROMOTIONS SPECIALIST [facility] Blood BLOOD SPECIMEN / Unknown Venipuncture / Unknown 10/24/2023 12:12 PM PROMOTIONS SPECIALIST 10/24/2023 12:20 PM PROMOTIONS SPECIALIST Britni Winston PA-C LAB - CHEMISTRY JON NAIDU [address] [address], [place] [phone] documented in this encounter Visit Diagnoses Diagnosis 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 documented in this encounter Administered Medications Inactive Administered Medications - up to 3 most recent administrations Medication Order MAR Action Action Date Dose Rate Site sodium - potassium phosphates (K Phos Neutral) tablet 2 tablet 2 tablet, Oral, ONCE, 1 dose, On Fri10/24/23 at 1330, Contains Phos 8 mmol, K+ 1.1 mEq, Na 13 mEq per tablet $ Given 10/24/2023 1:06 PM PROMOTIONS SPECIALIST 2 tablets documented in this encounter Care Teams Truck Engine Technician Relationship Specialty Start Date End Date Nilam Mayers MD [address] [place] [phone] PCP - General Family Medicine 09/04/23 04/18/24 documented as of this encounter
--- OUTSIDE RECORDS SUMMARY | 2024-08-31 21:30 | XMS_ITS | Encounter Summary ---
Author Organization [facility] Address [address] [place] [address] Care Team Providers Care Agricultural Produce Sorter Name Role Phone Nilam Mayers MD Primary Care Provider [phone] Reason for Visit * Auth/Cert (Routine) Specialty Diagnoses / Procedures Referred By Contac t Referred To Contact Diagnoses AML Referral ID Status Reason Start Date Expiration Date Visits Re quested Visits Authorized [id number] 1 1 Encounter Details Date Type Department Care Team (Latest Contact Info) Description 11/03/2023 9:28 AM MIXER OPERATOR TABLETS - 11/03/2023 6:08 PM [facility] Hospital Encounter [facility] [address] [place] [address] Hussain Carias MD [address] [place] [phone] Cori Hill APRN-CNP [address] [place] [address] Discharge Disposition: Home or Self Care Social [...] care, and heating? Not very hard 11/03/2023 [facility] [place] [facility] - Occupational Stress [...] in a skilled nursing (including now)? No 11/03/2023 Sex and Gender Information Value Date Recorded Sex Assigned at Not on file Gender Identity Female 02/13/2024 1:12 PM CDT Sexual Orientation Not on file documented as of this encounter Last Filed Vital Signs Vital Sign Reading Time Taken Comments Blood Pressure 131/76 11/03/2023 12:49 PM MIXER OPERATOR TABLETS Pulse 95 11/03/2023 12:49 PM MIXER OPERATOR TABLETS Temperature 36.9 ??C (98.4 ??F) 11/03/2023 1 2:49 PM MIXER OPERATOR TABLETS Respiratory Rate 16 11/03/2023 12:4 9 PM MIXER OPERATOR TABLETS Oxygen Saturation 100% 11/03/2023 12: 49 PM MIXER OPERATOR TABLETS Inhaled Oxygen Concentration - - Weight 112.8 kg (248 lb 9.6 oz) 024 10:52 AM MIXER OPERATOR TABLETS Height - - Body Mass Index 45.47 10/13/2023 5:23 PM MIXER OPERATOR TABLETS documented in this encounter Functional Status Functional [...] times daily 120 tablet 1 10/08/2023 11/08/2023 dexAMETHasone (Decadron) 0.1 % ophthalmic suspensionIndications :Acute myeloid leukemia in remission (HCC) Instill 2 (two) drops into both eyes 4 times daily for 32 doses 5 mL 11/08/2023 11/12/2023 dicyclomine (Bentyl) 20 MG tablet Take 1 [...] Cancer Chemotherapy 100 tablet 11 11/04/2023 12/06/2023 ondansetron, disintegrating, (Zofran ODT) 8 MG tabletIndications:Jonny teran Take 1 (one) tablet by mouth 2 times daily as needed for Nausea/Vomiting Allow tablet to dissolve on the tongue 30 tablet 1 10/09/2023 11/08/2023 posaconazole (Noxafil) 100 MG tabletIndications:Acu te myeloid leukemia in remission (HCC) Take 3 (three) tablets by mouth daily with dinner 90 tablet 5 11/03/2023 12/15/2023 potassium chloride ER 10 MEQ tablet Take 2 (two) tablets by mouth once daily 30 tablet 10/13/2023 11/10/2023 prochlorperazine (Compazine) 10 MG tabletIndications:Acu te myeloid leukemia in remission (HCC) Take 1 (one) tablet by mouth every 6 hours as needed for Nausea/Vomiting 30 tablet 11 11/04/2023 12/06/2023 prochlorperazine (Compazine) 10 MG tabletIndications:Acu te leukemia of unspecified 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) Take 1 (one) tablet by mouth every 6 hours as needed for Nausea/Vomiting 30 tablet 1 10/09/2023 11/08/2023 sodium - potassium phosphates (K Phos Neutral) 155-852-130 MG tablet Take 2 (two) tablets by mouth once daily 60 tablet 10/22/2023 11/08/2023 valACYclovir (Valtrex) 500 MG tabletIndications:Acu te myeloid leukemia in remission (HCC) Take 1 (one) tablet by mouth 2 times daily 60 tablet 11 11/03/2023 08/23/2024 documented as of this encounter Progress Notes * Marycarmen Gil - 11/03/2023 12:54 PM CST MEDICATION TO BEDSIDE DELIVERY: COMPLETE Medication to Bedside delivery was completed for Sarah Mckeon. ??? A total of 1 prescriptions were delivered to the patient for discharge. ??? Medications were given to NURSE (MADHURI) ??? This delivery included a controlled substance: NO ??? This delivery included medication that should be stored in the fridge: NO Thank you for allowing the outpatient pharmacy to participate in the care of Sarah Mckeon. If you have any questions, please contact the outpatient pharmacy at [phone]. Marycarmen [facility] at [facility] [address] First Floor [place], [place] [address] Hours of Operation Friday - Friday: 8:00am to 6:00pm Friday: 9:00am to 1:00pm Epic: [facility] *Ensure the patient and clinic's nearby ZIP codes box is unchecked* * Cori Hill, ZACH-EXECUTIVE BUSINESS COACH - 11/03/2023 11:30 AM CST [facility] Hematology/Oncology Clinic Visit Note Date of visit: 11/03/2023 Patient: Sarah Mckeon Oncologist: Dr. 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 Was treated with vanc cefepime and then CTX, but had persistent pancytopenia. Bone marrow biopsy was done which showed 78% blast on the bone marrow flow cytometry and confirmed NPM1 mutation. Pt was transferred to [facility] for concern for AML. Count recovery BMBx performed at [facility] on 10/01/23 confirmed no blasts, MRD [...] Mora presents to clinic for cycle 2 HiDAC Feeling well overall Continues to have some spotting Due for Depo at end of the month Has not been able to get her potassium script from [facility] PERFORMANCE STATUS: KPS 90 / ECOG 1 ONCOLOGY HISTORY: Cancer Staging No matching staging information was found for the patient. 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 Initial Diagnosis 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 ([facility]) 09/06/2023 - Chemotherapy cytarabine (Cytosar) 460 mg [...] by mouth once daily 60 tablet 0 No current facility-administered medications on file prior [...] No Stress: No Stress Concern Present (09/06/2023) [facility] [place] [facility] - Occupational Stress Questionnaire [...] EXAM: Wt Readings from Last 3 Encounters: 11/03/23 112.8 kg (248 lb 9.6 oz) 10/29/23 112.1 kg (247 lb 3.2 oz) 10/27/23 111.9 kg (246 lb 9.6 oz) Temp Readings from Last 3 Encounters: 11/03/23 98.4 ??F (Oral) 10/29/23 97.7 ??F 10/27/23 98.3 ??F BP Readings from Last 3 Encounters: 11/03/23 127/62 10/29/23 145/89 10/27/23 149/97 Pulse Readings from Last 3 Encounters: 11/03/23 100 10/29/23 102 10/27/23 99 Physical Exam Vitals reviewed. Constitutional: General: She [...] Behavior normal. LABS: Recent Labs Component Name 11/03/23 0956 WBC 4.3 HGB 6.8* HCT 19.3* PLTCOUNT 102* Recent Labs Component Name 11/03/23 0956 10/29/23 1048 10/27/23 1409 10/24/23 1212 10/22/23 1340 10/20/23 1304 10/13/23 2140 10/13/23 1354 10/07/23 2031 10/06/23 2041 10/02/23 2132 10/01/23 2119 09/30/23200809/07/23200709/06/23 2143 09/06/23 0026 09/05/23 0909 09/04/23 0525 WBC 4.3 3.2* 2.8* 1.3* - 0.4* - 0.5* - 2.5* - 4.1 4.1 - 0.6* 1.9* - 1.9* RBC 2.29* 2.51* 2.48* 2.69* - 2.34* - 2.54* - 2.43* - 2.36* 2.32* - 2.45* 2.46* - 2.51* HGB 6.8* 7.4* 7.3* 7.8* - 6.8* - 7.5* - 7.5* - 7.3* 7.1* - 7.9* 8.0* - 8.1* HCT 19.3* 20.2* 19.7* 21.1* - 18.3* - 20.2* - 21.5* - 21.5* 20.4* - 22.0* 22.1* - 22.6* MCV 84.3 80.5 79.4* 78.4* - 78.2* - 79.5* - 88.5 - 91.1 87.9 - 89.8 89.8 - 90.0 MCH 29.7 29.5 29.4 29.0 - 29.1 - 29.5 - 30.9 - 30.9 30.6 - 32.2 32.5 - 32.3 MCHC 35.2 36.6* 37.1* 37.0* - 37.2* - 37.1* - 34.9 - 34.0 34.8 - 35.9 36.2 - 35.8 MPV 11.4 11.1 11.8* 10.8 - 10.1 - - - 10.2 - 11.4 11.0 - 11.8* 11.4 - - NEUTPCT 50.8 - - - - 2.2* - - - 88.4* - - - - - - - - MONOPCT 28.3* - - - - 2.3* - - - 2.4* - - - - - - - - EOSPCT 0.0 - - - - 0.0 - - - 0.0 - - - - - - - - BASOPCT 0.0 - - - - 0.0 - - - 0.0 - - - - - - - - MONO - 1.09* 1.15* 0.49 - - - - - - - 0.78 1.07* - 0.02* 0.02* - 0.02* EOS - - - - - - - - - - - 0.04 0.04 - - 0.02 - 0.02 BASO - - - - - - - 0.01 - - - - - - 0.01 - - 0.04 - = values in this interval not displayed. Recent Labs Component Name 11/03/23 0956 10/29/23 1048 10/27/23 1409 BUN 6* 7 9 CREATININE 0.55* 0.54* 0.51* NA 143 144 143 POTASSIUM 2.6* 3.0* 3.1* CL 109* 111* 111* CALCIUM 8.4 9.1 9.3 PROT 6.2 6.4 6.4 ALB 3.2* 3.1* 3.1* TBILI 0.5 0.3 0.3 ALKPHOS 68 73 77 ALT 43 31 32 AST 23 25 22 ANIONGAP 9 9 7 BCR 11 13 18 OSMOLALITY 294 298* 295 EGFR >90 >90 >90 Pathology Results RESULT Normal FISH Result: inv(3) or t(3;3) RPN1::MECOM Fusion: not detected Deletion 5q: not detected Monosomy 7: not detected Deletion 7q: not detected t(8;21) RUNX1::VGKD0S2 Fusion: not detected 11p15 (NUP98) Rearrangement: not detected 11q23 (KMT2A) Rearrangement: not detected inv(16) or t(16;16) CBFB::MYH11 Fusion: not detected INTERPRETATION There was no evidence of RPN1::MECOM fusion due to 3q21/3q26.2 inversion or translocation, deletion 5q31, monosomy 7, deletion 7q31, RUNX1::JVXQ7T4 fusion due to translocation (8;21)(q21.3;q22), 11p15 (NUP98) [...] only. Flow Cytometry Summary Concurrent flow cytometry ([id number]) shows acute myeloid leukemia. Specimens A Bone [...] agent. Report dictated by Sivakumar Garrido DO (Sound Assistant). Attending Physician: Dr. Augustine Davison Alternative Dispute Resolution Mediator: Dr. Sivakumar Garrido DO (Sound Assistant). The procedure was performed by the: The administrative personal assistant, and the attending radiologist was present [...] 38 year old female who transferred to [facility] on 09/03/2023 for suspected AML. Patient started 7 + 3 (cytarabine and idarubicin) on 09/06/2023. 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 1. AML, NPM-1 mut, fav risk in CR and molecular remission after 7+3 -Pancytopenia, neutropenia -Transferred from [facility] after a BMBX showed 78% [...] systemic chemo for leukemic retinal infiltration. 2. Vfu-tmfbl-vog metabolic acidosis - Likely 10/17 Diamox, follow [...] clinic w/ Dr. Lomeli on 11/19/23 w/ CT non con for imaging. - Keep plts >30K at this time. PLAN: - labs reviewed, ANC 2190. Transfusing 1 unit of PRBCs in clinic. Urine HCG negative. - Cleared for cycle 2 of HiDAC, receiving first dose of HiDAC in clinic then admitting for remaining doses. Baseline cerebellar check completed in clinic. - Per discussion with ophthalmology, will c/w dexamethasone eye drops with next HiDAC cycle in addition to QID artificial tears. - Continue OI ppx with Valtrex and posaconazole. Start Levaquin with neutropenia (ANC <500) - Transfusion parameters: (leukoreduced and irradiated blood products) pRBC to keep Hgb >7 if hemodynamically stable and no bleeding. PLT transfusion to keep PLT >30K at this time due to (small) SAH, vaginal bleeding, and retinal hemorrhages. Discharge Planning: - Plan for labs 3 times a week on MWF in BMT clinic. Scheduled for 11/10, 11/12, and 11/13 currently. Patient is planning to schedule rides now (11/03) - Refills for Valtrex sent locally ([facility]) and posaconazole sent to [facility] (will need delivered at discharge) F/u: Admit to [facility] for HiDAC cycle 2 The total time spent today in the visit with the patient, performing chart preparation, review of data, and documentation, not related to any procedure or preventative visit services was 35 minutes. Cori Hill APRN, [facility] R OPERATOR TABLETS documented in this encounter Plan of Treatment Upcoming Encounters Date Type Department Care Team (Late st Contact Info) Description 10/27/2024 10:30 AM MIXER OPERATOR TABLETS Appointment [facility] [address] [place] [address] Hussain Carias MD [address] [place] [phone] Britni Winston, PABaronC [address] [place] [address] 11/17/2024 9:00 AM MIXER OPERATOR TABLETS Office Visit [facility] - Ophthalmology [address] [place] [phone] Song Hobson MD [address] [place] [address] [place] [phone] documented as of this encounter Procedures Procedure Name Priority Date/Time Associated Diagnosis Comments TRANSFUSE RED BLOOD CELL LEUKOREDUCED UNIT(S) Routine 11/03/2023 11:17 AM MIXER OPERATOR TABLETS PREPARE RBC LEUKOREDUCED UNIT Routine 11/03/2023 11:01 AM MIXER OPERATOR TABLETS HCG URINE QUALITATIVE STAT 11/03/2023 10:02 AM MIXER OPERATOR TABLETS Acute myeloid leukemia in remission (HCC) URIC ACID BLOOD STAT 11/03/2023 9:56 AM MIXER OPERATOR TABLETS Acute myeloid leukemia in remission (HCC) TYPE + SCREEN PANEL STAT 11/03/2023 9 :56 AM MIXER OPERATOR TABLETS Acute myeloid leukemia in remission (HCC) CBC W AUTO DIFFERENTIAL STAT 11/03/2023 9:56 AM MIXER OPERATOR TABLETS Acute myeloid leukemia in remission (HCC) COMPREHENSIVE METABOLIC PANEL STAT 11/03/2023 9:56 AM MIXER OPERATOR TABLETS Acute myeloid leukemia in remission (HCC) PHOSPHORUS BLOOD STAT 11/03/2023 9:56 AM MIXER OPERATOR TABLETS Acute myeloid leukemia in remission (HCC) MAGNESIUM BLOOD STAT 11/03/2023 9:56 AM MIXER OPERATOR TABLETS Acute myeloid leukemia in remission (HCC) LDH BLOOD STAT 11/03/2023 9:56 AM MIXER OPERATOR TABLETS Acute myeloid leukemia in remission (HCC) documented in this encounter Results * TRANSFUSE RED BLOOD CELL LEUKOREDUCED UNIT(S) (11/03/2023 12:50 PM MIXER OPERATOR TABLETS) Cori Hill BOOM CRANE OPERATOR-EXECUTIVE BUSINESS COACH NURSING - B LOOD PROD TRANSFUSION * TRANSFUSE RED BLOOD CELL LEUKOREDUCED UNIT(S), 1 Units (11/03/2023 12:50 PM MIXER OPERATOR TABLETS) Cori Hill BOOM CRANE OPERATOR-EXECUTIVE BUSINESS COACH NURSING - B LOOD PROD TRANSFUSION * PREPARE (CROSSMATCH) RBC UNIT(S), 1 Units (11/03/2023 11:01 AM MIXER OPERATOR TABLETS) Pathologist [facility] Unit Description AS1 LR PRBC IRR [facility] Unit ABO O [facility] Unit Rh POS [facility] Product Number R04 [facility] B LO[facility] B[facility] Unit Donor # [id number] [facility] Unit Status transfused [facility] Product Code [id number] [facility] Blood Type Barcode 5100 [facility] Expiration Date [id number] S BLOOD BANK LAB Blood Bank BLOOD SPECIMEN / Unknown 11/03/2023 10:10 AM MIXER OPERATOR TABLETS Cori Hill BOOM CRANE OPERATOR-EXECUTIVE BUSINESS COACH LAB - BLOOD BANK ORDERABLES [facility] [address] [place] [address], [place] [phone] * HCG URINE QUALITATIVE (11/03/2023 10:02 AM MIXER OPERATOR TABLETS) Test Urine Negative Negative 11/03/2023 10:22 AM MIXER OPERATOR TABLETS [facility] Urine URINE / Unknown Collection / Unknown 11/03/2023 10:02 AM MIXER OPERATOR TABLETS 11/03/2023 10:07 AM MIXER OPERATOR TABLETS Cori Hill BOOM CRANE OPERATOR-EXECUTIVE BUSINESS COACH LAB - URINA LYSIS ORDERABLES Performing Organization Address [facility] Co de Phone Number [facility] [address] [place] [phone], [place] [phone] * TYPE + SCREEN PANEL (11/03/2023 9:56 AM MIXER OPERATOR TABLETS) Antibody Screen NEG 10:57 AM MIXER OPERATOR TABLETS [facility] ABO Rh O POS 11/03/2023 10:57 AM MIXER OPERATOR TABLETS [facility] Blood Bank BLOOD SPECIMEN / Unknown Venipuncture / Unknown 11/03/2023 9:56 AM MIXER OPERATOR TABLETS 11/03/2023 10:10 AM MIXER OPERATOR TABLETS Britni Winston PA-C LAB - BLOOD BANK ORD ERABLES Performing Organization Address [facility] Co de Phone Number [facility] [address] [place] [phone], [place] [phone] * URIC ACID BLOOD (11/03/2023 9:56 AM MIXER OPERATOR TABLETS) Uric Acid 3.9 2.6 - 6.0 mg/dL 11/03/2023 10:34 AM MIXER OPERATOR TABLETS [facility] Blood BLOOD SPECIMEN / Unknown Venipuncture / Unknown 11/03/2023 9:56 AM MIXER OPERATOR TABLETS 11/03/2023 10:09 AM MIXER OPERATOR TABLETS Britni Winston PA-C LAB - CHEMISTRY ORDE RABLES [facility] [address] [place] [address], [facility] [phone] * (ABNORMAL) LDH BLOOD (11/03/2023 9:56 AM MIXER OPERATOR TABLETS) [facility] LDH Total 303(H) 125 - 243 Units/L 11/03/2023 10:34 AM [facility] Blood BLOOD SPECIMEN / Unknown Venipuncture / Unknown 11/03/2023 9:56 AM MIXER OPERATOR TABLETS 11/03/2023 10:09 AM MIXER OPERATOR TABLETS Britni Winston PA-C LAB - CHEMISTRY ORDE ELYSIA [address] [address], [facility] [phone] * (ABNORMAL) CBC WITH DIFFERENTIAL (11/03/2023 9:56 AM [facility]) [facility] WBC 4.3 4.0 - 10.7 x10E9/L 11/03/2023 10:36 AM [facility] RBC Count 2.29(L) 3.90 - 5.20 x10E12/L 11/03/2023 10:36 AM [facility] Hemoglobin 6.8(L) 11.9 - 15.8 g/dL 11/03/2023 10:36 AM [facility] Hematocrit 19.3(L) 34.8 - 46.1 % 11/03/2023 10:36 AM [facility] MCV 84.3 80.0 - 98.0 fL 11/03/2023 10:36 AM [facility] MCH 29.7 26.7 - 33.6 pg 11/03/2023 10:36 AM [facility] MCHC 35.2 31.7 - 36.3 g/dL 11/03/2023 10:36 AM [facility] RDW-CV 15.0(H) 11.3 - 14.8 % 11/03/2023 10:36 AM [facility] Platelet Count 102(L) 150 - 420 x10E9/L 11/03/2023 10:36 AM [facility] MPV 11.4 7.8 - 11.4 fL 11/03/2023 10:36 AM [facility] Preliminary Absolute Neutrophil 2.19 1.60 - 7.50 x10E9/L 11/03/2023 10:36 AM [facility] Neutrophil % 50.8 41.0 - 74.0 % 11/03/2023 10:36 AM [facility] Lymphocyte % 19.5 17.0 - 47.0 % 11/03/2023 10:36 AM [facility] Monocyte % 28.3(H) 3.0 - 11.0 % 11/03/2023 10:36 AM [facility] Eosinophil % 0.0 0.0 - 7.0 % 11/03/2023 10:36 AM [facility] Basophil % 0.0 0.0 - 1.6 % 11/03/2023 10:36 AM [facility] Immature Granulocytes % 1.4(H) 0.0 - 1.0 % 11/03/2023 10:36 AM [facility] Neutrophil Absolute 2.19 1.60 - 7.50 x10E9/L 11/03/2023 10:36 AM [facility] Lymphocyte Absolute 0.84(L) 1.00 - 4.40 x10E9/L 11/03/2023 10:36 AM [facility] Monocyte Absolute 1.22(H) 0.15 - 1.00 x10E9/L 11/03/2023 10:36 AM [facility] Eosinophil Absolute 0.00 0.00 - 0.60 x10E9/L 11/03/2023 10:36 AM [facility] Basophil Absolute 0.00 0.00 - 0.13 x10E9/L 11/03/2023 10:36 AM [facility] NRBC 1.9(H) <=0.0 /100 WBC 11/03/2023 10:36 AM [facility] Blood BLOOD SPECIMEN / Unknown Venipuncture / Unknown 11/03/2023 9:56 AM MIXER OPERATOR TABLETS 11/03/2023 10:09 AM [facility] Britni Winston PA-C LAB - HEMATOLOGY ORD ERABLES [facility] [address] [place] [address], [facility] [phone] * (ABNORMAL) MAGNESIUM BLOOD (11/03/2023 9:56 AM MIXER OPERATOR TABLETS) Pathologist [facility] Magnesium 1.4(L) 1.6 - 2.6 mg/dL 11/03/2023 10:34 AM [facility] Blood BLOOD SPECIMEN / Unknown Venipuncture / Unknown 11/03/2023 9:56 AM MIXER OPERATOR TABLETS 11/03/2023 10:09 AM [facility] Britni Winston PA-C LAB - CHEMISTRY ORDE RABQI Performing Organization Address [facility]/ZIP Co de Phone Number [facility] [address] [place] [address], [facility] [phone] * (ABNORMAL) COMPREHENSIVE METABOLIC PANEL (11/03/2023 9:56 AM MIXER OPERATOR TABLETS) [facility] BUN 6(L) 7 - 26 mg/dL 11/03/2023 10:34 AM [facility] Creatinine 0.55(L) 0.56 - 0.96 mg/dL 11/03/2023 10:34 AM [facility] Sodium 143 136 - 145 mmol/L 11/03/2023 10:34 AM [facility] Potassium 2.6(L) 3.5 - 4.5 mmol/L 11/03/2023 10:34 AM [facility] Chloride 109(H) 98 - 107 mmol/L 11/03/2023 10:34 AM [facility] CO2 25 22 - 29 mmol/L 11/03/2023 10:34 AM [facility] Glucose 105 70 - 115 mg/dL 11/03/2023 10:34 AM [facility] Calcium 8.4 8.4 - 10.2 mg/dL 11/03/2023 10:34 AM [facility] Protein Total 6.2 6.0 - 8.3 g/dL 11/03/2023 10:34 AM [facility] Albumin 3.2(L) 3.4 - 5.0 g/dL 11/03/2023 10:34 AM [facility] Bilirubin Total 0.5 0.2 - 1.2 mg/dL 11/03/2023 10:34 AM [facility] Alkaline Phosphatase 68 40 - 150 U/L 11/03/2023 10:34 AM [facility] ALT 43 5 - 55 U/L 11/03/2023 10:34 AM [facility] AST 23 5 - 34 U/L 11/03/2023 10:34 AM [facility] Anion Gap 9 6 - 16 11/03/2023 10:34 AM [facility] BUN/Creatinine Ratio 11 7 - 23 11/03/2023 10:34 AM [facility] Osmolality Calculated 294 275 - 295 mOsm/kg 11/03/2023 10:34 AM [facility] Albumin/Globulin Ratio 1.1 1.1 - 2.3 11/03/2023 10:34 AM [facility] eGFR by CKD-EPI >90 >=90 mL/min/1.7 3 m2 11/03/2023 10:34 AM [facility] Blood BLOOD SPECIMEN / Unknown Venipuncture / Unknown 11/03/2023 9:56 AM MIXER OPERATOR TABLETS 11/03/2023 10:09 AM [facility] Britni Winston PA-C LAB - CHEMISTRY ORDAzul NAIDU [facility] [address] [place] [address], [facility] [phone] * (ABNORMAL) PHOSPHORUS BLOOD (11/03/2023 9:56 AM MIXER OPERATOR TABLETS) Phosphorus 2.4(L) 2.9 - 5.1 mg/dL 11/03/2023 10:34 AM [facility] Blood BLOOD SPECIMEN / Unknown Venipuncture / Unknown 11/03/2023 9:56 AM MIXER OPERATOR TABLETS 11/03/2023 10:09 AM MIXER OPERATOR TABLETS Britni Winston PA-C LAB - CHEMISTRY ORDAzul NAIDU [facility] [address] [place] [address], [facility] [phone] documented in this encounter Visit Diagnoses Diagnosis 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 in remission documented in this encounter Administered Medications Inactive Administered Medications - up to 3 most recent administrations Medication Order MAR Action Action Date Dose Rate Site 0.9% NaCl injection 3 mL 3 mL, Intracatheter, EVERY 8 HOURS, First dose on Fri11/03/23 at 1400, Until Discontinued, Flush peripheral IV catheter with 3 mL of normal saline every 8 hours. $ Given 11/03/2023 2:00 PM MIXER OPERATOR TABLETS 3 mL cytarabine (Cytosar) 6,700 mg in 0.9% NaCl IV 597 mL infusion 6,700 mg (rounded from 6,720 mg = 3,000 mg/m2 ? 2.24 m2 Treatment Plan BSA from Recorded weight), at 199 mL/hr, Administer over 3 Hours, Intravenous, ONCE, 1 dose, On Fri11/03/23 at 1415, . PREMEDICATION(s): should be administered at least 30 minutes prior to infusion $ New Bag/Syringe 11/03/2023 1:11 PM MIXER OPERATOR TABLETS 6,700 mg 199 mL/hr dexAMETHasone (Decadron) 0.1 % ophthalmic suspension 2 drop 2 drop, Each Eye, FOUR TIMES DAILY, 4 doses, First dose on Fri11/03/23 at 1230, Last dose on Fri11/04/23 at 1000, Shake well before using. $ Given 11/03/2023 12:50 PM MIXER OPERATOR TABLETS 2 drops magnesium oxide (Mag-Ox) tablet 400 mg 400 mg, Oral, ONCE, 1 dose, On Fri11/03/23 at 1115 $ Given 11/03/2023 11:20 AM MIXER OPERATOR TABLETS 400 mg ondansetron (Zofran) injection 8 mg 8 mg, Intravenous, ONCE, 1 dose, On Fri11/03/23 at 1245, Administer over 2 to 5 minutes. Administer 30 minutes prior to chemotherapy. $ Given 11/03/2023 12:50 PM MIXER OPERATOR TABLETS 8 mg potassium chloride ER (Klor-Con M) tablet 80 mEq 80 mEq, Oral, ONCE, 1 dose, On Fri11/03/23 at 1100, Do not crush or chew. $ Given 11/03/2023 11:20 AM MIXER OPERATOR TABLETS 80 mEq documented in this encounter Care Teams Agricultural Produce Sorter Relationship Specialty Start Date End Date Nilam Mayers MD [address] [place] [phone] PCP - General Family Medicine 09/04/23 04/18/24 documented as of this encounter
--- OUTSIDE RECORDS SUMMARY | 2024-08-31 21:30 | XMS_ITS | Encounter Summary ---
Author Organization [facility] Health Address [facility] [place] [address] Care Team Providers Care Mid Teacher Name Role Phone Nilam Mayers MD Primary Care Provider +1- [phone] Encounter Details Date Type Department Care Team (Late st Contact Info) Description 10/28/2023 Orders Only [facility] [address] [place] [address] Hussain Carias MD [address] [place] [address] Social History Tobacco Use Types [...] care, and heating? Not very hard 09/06/2023 [facility] [place] of Occupat ional Health - Occupational Stress [...] slept in a snf (including now)? No 09/06/2023 Sex and Gender [...] st Contact Info) Description 10/27/2024 10:30 AM FERRYBOAT OPERATOR CABLE Appointment [facility] [address] [place] [address] Hussain Carias MD [address] [place] [phone] Britni Winston PA-C [address] [place] [address] 11/17/2024 9:00 AM FERRYBOAT OPERATOR CABLE Office Visit [facility] - Ophthalmology [address] [place] [phone] Song Hobson MD [address] [facility] [place] [address] documented as of this encounter Visit Diagnoses Not on filedocumented in this encounter Care Teams Mid Teacher Relationship Specialty Start Date End Date Nilam Mayers MD [address] [place] [phone] PCP - General Family Medicine 09/04/23 04/18/24 documented as of this encounter
--- OUTSIDE RECORDS SUMMARY | 2024-08-31 21:30 | XMS_ITS | Encounter Summary ---
Author Organization [facility] Address [address] [place], [place] [address] [address] Care Team Providers Care Sheet Rock Layer Name Role Phone Nilam Mayers MD Primary Care Provider +1- [phone] Encounter Details Date Type Department Care Team (Late st Contact Info) Description 10/24/2023 Telephone [facility] [address] [place] [address] Britni Winston, PA-C [address] [place] [address] Social History Tobacco Use Types [...] care, and heating? Not very hard 09/06/2023 [facility] [place] of Occupat ional Health - Occupational Stress [...] st Contact Info) Description 10/27/2024 10:30 AM SKI TOPPER Appointment [facility] [address] [place] [address] Hussain Carias MD [address] [place] [address] Britni Winston, PA-C [address] [place] [address] 11/17/2024 9:00 AM SKI TOPPER Office Visit [facility] - Ophthalmology [address] [place] [address], [place] [address] Song Hobson MD [address] [place] [address] [place] [address] documented as of this encounter Visit Diagnoses Not on filedocumented in this encounter Care Teams Sheet Rock Layer Relationship Specialty Start Date End Date Nilam Mayers MD [address] [place] [phone] PCP - General Family Medicine 09/04/23 04/18/24 documented as of this encounter
--- OUTSIDE RECORDS SUMMARY | 2024-08-31 21:30 | XMS_ITS | Encounter Summary ---
Author Organization [facility] Health Address [facility] [place] [address] Care Team Providers Care [employer] Consultant Name Role Phone Nilam Mayers MD Primary Care Provider +1- [phone] Encounter Details Date Type Department Care Team (Latest Contact Info) Description 10/20/2023 Travel Social History Tobacco Use Types Packs/Day [...] care, and heating? Not very hard 09/06/2023 [facility] [place] of Occupat ional Health - Occupational Stress [...] slept in a residential (including now)? No 09/06/2023 Sex and Gender [...] st Contact Info) Description 10/27/2024 10:30 AM LOGISTICS ASSOCIATE Appointment [facility] [address] [place] [address] Hussain Carias MD [address] [place] [phone] Britni Winston, PABaronC [address] [place] [address] 11/17/2024 9:00 AM LOGISTICS ASSOCIATE Office Visit [facility] - Ophthalmology [address] [place] [phone] Song Hobson MD [address] [place] [address] [place] [address] documented as of this encounter Visit Diagnoses Not on filedocumented in this encounter Care Teams [employer] Consultant Relationship Specialty Start Date End Date Nilam Mayers MD [address] [place] [phone] PCP - General Family Medicine 09/04/23 04/18/24 documented as of this encounter
--- OUTSIDE RECORDS SUMMARY | 2024-08-31 21:31 | XMS_ITS | Encounter Summary ---
Author Organization [facility] Health Address [address] [place], [place] [address] [address] Care Team Providers Care Nursing Home Administrator Name Role Phone Nilam Mayers MD Primary Care Provider +1- [phone] Encounter Details Date Type Department Care Team (Latest Contact Info) Description 10/13/2023 3:25 PM MAINTENANCE PLANNER Clinical Support [facility] - Ophthalmology [address] [place] [phone] Nilam Mayers MD [address] [place] [address] IIH (idiopathic intracranial hypertension) (Primary Dx) Social [...] care, and heating? Not very hard 09/06/2023 [facility] [place] of Occupat ional Health - Occupational Stress [...] in a senior living (including now)? No 09/06/2023 Sex and Gender [...] st Contact Info) Description 10/27/2024 10:30 AM MAINTENANCE PLANNER Appointment [facility] [address] [place] [address] Hussain Carias MD [address] [place] [phone] Britni Winston PA-C [address] [place] [address] 11/17/2024 9:00 AM MAINTENANCE PLANNER Office Visit [facility] - Ophthalmology [facility], [place] [address] Song Hobson MD [address] [place] [address] [place] [address] documented as of this encounter Procedures Procedure Name Priority Date/Time Associated Diagnosis Comments OPTIC NERVE ANALYSIS OCT Routine 10/13/2023 3:21 PM MAINTENANCE PLANNER IIH (idiopathic intracranial hypertension) documented in this encounter Results * OPTIC NERVE ANALYSIS OCT (10/13/2023 3:21 PM MAINTENANCE PLANNER) Anatomical Region Laterality Modality Head External-Camera Photography Narrative 10/28/2023 7:23 AM MAINTENANCE PLANNER Images from the original result were not included. OCT: average RNFL of ONH: 153 OD, 134 OS improved from prior of 175 OD 165 OS Nilam Mayers MD OPHTHALMOLOGY SCHE D ORD W PACS documented in this encounter Visit Diagnoses Diagnosis IIH (idiopathic intracranial hypertension)- Primary Benign intracranial hypertension documented in this encounter Care Teams Nursing Home Administrator Relationship Specialty Start Date End Date Nilam Mayers MD [address] [place] [phone] PCP - General Family Medicine 09/04/23 04/18/24 documented as of this encounter
--- OUTSIDE RECORDS SUMMARY | 2024-08-31 21:31 | XMS_ITS | Encounter Summary ---
Author Organization [facility] Health Address [address] [place], [place] [address] [address] Care Team Providers Care Patient Account Liaison Name Role Phone Nilam Mayers MD Primary Care Provider +1- [phone] Encounter Details Date Type Department Care Team (Late st Contact Info) Description 10/09/2023 Telephone [facility] [address] [place] [address] Alyson Butcher, RN Social History [...] care, and heating? Not very hard 09/06/2023 [facility] [place] of Occupat ional Health - Occupational Stress [...] Telephone Encounter - Alyson Butcher, RN - 10/09/2023 5:09 PM CST recevied a vm from Sarah asking if she could reschedule her appt. Called her back and left a vm tolet her know it was not a good idea to reschedule as her counts are dropping. Explained that we maybe able to cancel the [facility] appt due to being seen in our clinic. Left call back number forquestions. Will update Britni CHANDLER. T OUTPUT CLERK documented in this encounter Plan of Treatment Upcoming Encounters Date Type Department Care Team (Late st Contact Info) Description 10/27/2024 10:30 AM INPUT OUTPUT CLERK Appointment [facility] [address] [place] [address] Hussain Carias MD [address] [place] [phone] Britni Winston, PA-C [address] [place], [place] [phone] 11/17/2024 9:00 AM INPUT OUTPUT CLERK Office Visit [facility] - Ophthalmology [address] [place] [phone] Song Hobson MD [address] [place] [address] [place] [phone] documented as of this encounter Visit Diagnoses Not on filedocumented in this encounter Care Teams Patient Account Liaison Relationship Specialty Start Date End Date Nilam Mayers MD [address] [place] [phone] PCP - General Family Medicine 09/04/23 04/18/24 documented as of this encounter
--- OUTSIDE RECORDS SUMMARY | 2024-08-31 21:31 | XMS_ITS | Encounter Summary ---
Author Organization [facility] Health Address [address] [place], [place] [address] [address] Care Team Providers Care Safety And Health Manager Name Role Phone Nilam Mayers MD Primary Care Provider +1- [phone] Encounter Details Date Type Department Care Team (Latest Contact Info) Description 10/13/2023 3:30 PM NIGHT CLEANER Clinical Support [facility] - Ophthalmology [address] [place] [phone] Nilam Mayers MD [address] [place] [address] IIH (idiopathic intracranial hypertension) (Primary [...] care, and heating? Not very hard 09/06/2023 [facility] [place] of Occupat ional Health - Occupational Stress [...] slept in a intermediate (including now)? No 09/06/2023 Sex and Gender [...] st Contact Info) Description 10/27/2024 10:30 AM NIGHT CLEANER Appointment [facility] [address] [place] [address] Hussain Carias MD [address] [place] [phone] Britni Winston PA-C [address] [place], [place] [phone] 11/17/2024 9:00 AM NIGHT CLEANER Office Visit [facility] - Ophthalmology [facility], [place] [address] Song Hobson MD [address] [place] [address] [place] [address] documented as of this encounter Procedures Procedure Name Priority Date/Time Associated Diagnosis Comments DOLL AUTO VISUAL FIELD EXTENDED Routine 10/13/2023 3:21 PM NIGHT CLEANER IIH (idiopathic intracranial hypertension) documented in this encounter Results * DOLL AUTO VISUAL FIELD EXTENDED (10/13/2023 3:21 PM NIGHT CLEANER) Anatomical Region Laterality Modality Head External-Camera Photography Narrative 10/28/2023 7:23 AM NIGHT CLEANER Images from the original result were not [...] hypertension documented in this encounter Care Teams Safety And Health Manager Relationship Specialty Start Date End Date Nilam Mayers MD [address] [place] [phone] PCP - General Family Medicine 09/04/23 04/18/24 documented as of this encounter
--- OUTSIDE RECORDS SUMMARY | 2024-08-31 21:31 | XMS_ITS | Encounter Summary ---
Author Organization [facility] Address [address] [place] [address] Care Team Providers Care Asphalt Raker Name Role Phone Nilam Mayers MD Primary Care Provider [phone] Encounter Details Date Type Department Care Team (Latest Contact Info) Description 10/13/2023 1:36 PM UNDERWATER HUNTER - 10/13/2023 5:40 PM [facility] Hospital Encounter [facility] [address] [place] [address] Hussain Carias MD [address] [place] [address] Nilam Mayers MD [address] [place] [address] Britni Winston, PA-C [address] [place] [address] Discharge Disposition: Home or Self [...] care, and heating? Not very hard 09/06/2023 [facility] - Occupational Stress [...] slept in a fpc (including now)? No 09/06/2023 Sex and Gender Information Value Date Recorded Sex Assigned at Not on file Gender Identity Female 02/13/2024 1:12 PM CDT Sexual Orientation Not on file documented as of this encounter Last Filed Vital Signs Vital Sign Reading Time Taken Comments Blood Pressure 139/77 10/13/2023 1:50 PM UNDERWATER HUNTER Pulse 120 10/13/2023 1:50 PM UNDERWATER HUNTER Temperature 36.4 ??C (97.5 ??F) 10/13/2023 1:50 PM CS T Respiratory Rate 18 10/13/2023 1:50 PM UNDERWATER HUNTER Oxygen Saturation 100% 10/13/2023 1:50 PM UNDERWATER HUNTER Inhaled Oxygen Concentration - - Weight 106.9 kg (235 lb 11.2 oz) 10/13/2023 1:50 PM UNDERWATER HUNTER Height - - Body Mass Index 43.11 10/07/2023 4:00 AM UNDERWATER HUNTER documented in this encounter Functional Status Functional [...] Date End Date acetaZOLAMIDE (Diamox) 250 MG tablet Take 2 (two) tablets by mouth 2 times daily 120 tablet 1 10/08/2023 11/08/2023 dicyclomine (Bentyl) 20 MG tablet Take 1 (one) tablet by mouth 3 times daily as needed (cramping) 30 tablet 1 10/09/2023 11/08/2023 famotidine (Pepcid) 20 MG tabletIndications:Tonsi llitis Take 1 (one) tablet by mouth 2 times daily 60 tablet 1 10/09/2023 10/17/2023 levoFLOXacin (Levaquin) 500 MG tablet Take 1 (one) tablet by mouth once daily 30 tablet 1 10/08/2023 12/15/2023 ondansetron, disintegrating, (Zofran ODT) 8 MG tabletIndications:Tonsi [...] 30 days. 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 Notified GERALDINE Ryder. Mora's platelet count is 3 today,and she needs a platelet transfusion. It is unlikely she will finish in ophthalmology before cliniccloses today, so plan is for Mora to go to ED after that appointment for platelet transfusion. Britni will update ED charge. Mora indicated understanding and is agreeable to plan. RWATER HUNTER * Britni Winston PA-C - 10/13/2023 7:21 AM CST [facility] Hematology/Oncology Clinic Visit Note Date of visit: 10/13/2023 Patient: Sarah Mckeon Oncologist: Dr. 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 Was treated with vanc cefepime and then CTX, but had persistent pancytopenia. Bone marrow biopsy was done which showed 78% blast on the bone marrow flow cytometry and confirmed NPM1 mutation. Pt was transferred to [facility] for concern for AML. Count recovery BMBx performed at [facility] on 10/01/23 confirmed no blasts, MRD pending as of 10/13/23. SH - Lives alone with daughter (11 y old); her daughter is currently staying with her dad. No PMHx of cancers; she is adopted so FH is limited. No drugs or smoking or alcohol use. C1 7+3 Induction 09/06/23 C1 HiDAC 10/04/23 INTERIM HISTORY Pt presents in f/u C1D9 HiDAC. Pt presented with acute complaint of eye watering, blurred vision, and eye pain. She notes mild pain at rest which increases to moderate pain with trying to focus on anything. Pt reports she is uncomfortable from the excessive, profuse eye watering. Pt denies double vision, headache, dizziness, or weakness. Pt also denies F/C/N/V/D/C. Pt denies pain anywhere other than her eyes. Pt does note continued, mild to moderate vaginal bleeding. HPI/ROS limited due to pt's acute eye complaints. PERFORMANCE STATUS: KPS 90 / ECOG 1 ONCOLOGY HISTORY: Cancer Staging No matching staging information was found for the patient. 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 PAST MEDICAL HISTORY: Past Medical History: Diagnosis Date ??? NEGATIVE PAST MEDICAL HISTORY - SEE PROBLEM LIST MEDICATIONS: No current facility-administered medications on file prior to encounter. Current Outpatient Medications on File Prior to Encounter Medication Sig Dispense Refill ??? acetaZOLAMIDE (Diamox) 250 MG tablet Take 2 (two) tablets by mouth 2 times daily 120 tablet 1 ??? dicyclomine (Bentyl) 20 MG tablet Take 1 (one) tablet by mouth 3 times daily as needed (cramping) 30 tablet 1 ??? famotidine (Pepcid) 20 MG tablet Take 1 (one) tablet by mouth 2 times daily 60 tablet 1 ??? levoFLOXacin (Levaquin) 500 MG tablet Take 1 (one) tablet by mouth once daily 30 tablet 1 ??? ondansetron, disintegrating, (Zofran ODT) 8 MG tablet Take 1 (one) tablet by mouth 2 times daily as needed for Nausea/Vomiting Allow tablet to dissolve on the tongue 30 tablet 1 ??? posaconazole (Noxafil) 100 MG tablet Take 3 (three) tablets by mouth 2 times daily for 1 day, THEN 3 (three) tablets daily with dinner for 30 days. 90 tablet 2 ??? prochlorperazine (Compazine) 10 MG tablet Take 1 (one) tablet by mouth every 6 hours as needed for Nausea/Vomiting 30 tablet 1 ??? valACYclovir (Valtrex) 500 MG tablet Take 1 (one) tablet by mouth 2 times daily 60 tablet 2 ALLERGIES: No Known Allergies SOCAL HISTORY: Social History Socioeconomic History ??? Marital status: Spouse name: Not on file ??? Number of children: Not on file ??? Years of education: Not on file ??? Highest education level: Not on file Occupational History ??? Not on file Tobacco Use ??? Smoking status: Former Packs/day: 1 Types: Cigarettes Start date: 2004 Quit date: 2011 Years since quittin.0 ??? Smokeless tobacco: Never Vaping Use ??? [...] No Stress: No Stress Concern Present (09/06/2023) [facility] - Occupational Stress Questionnaire [...] Negative for congestion and sore throat. Eyes: Positive for blurred vision and pain. Negative for double vision and redness. Respiratory: Negative for cough and shortness of breath. Cardiovascular: Negative for chest pain. Gastrointestinal: Negative for abdominal pain, constipation, diarrhea, nausea and vomiting. Skin: Negative for rash. Neurological: Negative for dizziness, weakness and headaches. PHYSICAL EXAM: Wt Readings from Last 3 Encounters: 10/13/23 106.9 kg (235 lb 11.2 oz) 10/09/23 108.7 kg (239 lb 9.6 oz) Temp Readings from Last 3 Encounters: 10/13/23 97.8 ??F (Temporal) 10/13/23 97.5 ??F 10/09/23 97.5 ??F BP Readings from Last 3 Encounters: 10/13/23 124/79 10/13/23 139/77 10/09/23 126/89 Pulse Readings from Last 3 Encounters: 10/13/23 80 10/13/23 (!) 120 10/09/23 105 Physical Exam Vitals and nursing note reviewed. Constitutional: General: She is in acute distress. Appearance: She is not ill-appearing. HENT: Head: Normocephalic and atraumatic. Nose: No rhinorrhea. Eyes: General: Lids are normal. Extraocular Movements: Extraocular movements intact. Conjunctiva/sclera: Right eye: Right conjunctiva is not injected. Left eye: Left conjunctiva is not injected. Comments: Gross visual gonzales tested; All four quadrants of left eye field of vision intact. However, pt failed test of right lower quadrant of right eye vision. Other three quadrants of right eye vision grossly intact. Cardiovascular: Rate and Rhythm: Regular rhythm. Tachycardia present. Pulmonary: Effort: Pulmonary effort is normal. No respiratory distress. Breath sounds: Normal breath sounds. No wheezing, rhonchi or rales. Abdominal: General: Abdomen is flat. Palpations: Abdomen is soft. Musculoskeletal: Cervical back: Normal range of motion and neck supple. Right lower leg: No swelling. No edema. Left lower leg: No swelling. No edema. Skin: General: Skin is warm and dry. Neurological: Mental Status: She is alert. LABS: Recent Labs Component Name 10/13/23 1354 WBC 0.5* HGB 7.5* HCT 20.2* PLTCOUNT 3* Recent Labs Component Name 10/13/23 1354 10/08/23 2152 10/07/23 2031 10/06/23 2041 10/05/23 2051 10/04/23 2311 10/03/23 2102 10/02/23 2132 10/01/23 2119 09/30/23200809/07/23200709/06/23 2143 09/06/23 0026 09/05/23 0909 09/04/23 0525 WBC 0.5* 1.7* 3.7* 2.5* 3.8* 6.4 4.6 - 4.1 4.1 - 0.6* 1.9* - 1.9* RBC 2.54* 2.27* 2.48* 2.43* 2.34* 2.56* 2.36* - 2.36* 2.32* - 2.45* 2.46* - 2.51* HGB 7.5* 7.1* 7.8* 7.5* 7.2* 7.9* 7.3* - 7.3* 7.1* - 7.9* 8.0* - 8.1* HCT 20.2* 19.8* 22.0* 21.5* 20.9* 22.9* 21.1* - 21.5* 20.4* - 22.0* 22.1* - 22.6* MCV 79.5* 87.2 88.7 88.5 89.3 89.5 89.4 - 91.1 87.9 - 89.8 89.8 - 90.0 MCH 29.5 31.3 31.5 30.9 30.8 30.9 30.9 - 30.9 30.6 - 32.2 32.5 - 32.3 MCHC 37.1* 35.9 35.5 34.9 34.4 34.5 34.6 - 34.0 34.8 - 35.9 36.2 - 35.8 MPV - 10.3 10.5 10.2 10.3 10.9 11.3 - 11.4 11.0 - 11.8* 11.4 - - NEUTPCT - - - 88.4* 71.1 - - - - - - - - - - MONOPCT - - - 2.4* 13.8* - - - - - - - - - - EOSPCT - - - 0.0 0.0 - - - - - - - - - - BASOPCT - - - 0.0 0.0 - - - - - - - - - - MONO - - 0.04* - - 0.38 0.69 - 0.78 1.07* - 0.02* 0.02* - 0.02* EOS - - - - - - - - 0.04 0.04 - - 0.02 - 0.02 BASO 0.01 - - - - - - - - - - 0.01 - - 0.04 - = values in this interval not displayed. Recent Labs Component Name 10/13/23 1354 10/08/23 2152 10/07/23 2031 BUN 16 17 18 CREATININE 0.69 0.67 0.79 NA 140 140 142 POTASSIUM 2.5* 4.2 3.4* CL 111* 113* 112* CALCIUM 9.6 9.5 9.3 PROT 7.0 6.8 7.1 ALB 3.6 3.4 3.6 TBILI 0.8 0.6 0.8 ALKPHOS 80 65 66 ALT 75* 89* 101* AST 24 39* 54* ANIONGAP 13 11 11 BCR 23 25* 23 OSMOLALITY 292 295 298* EGFR >90 >90 >90 Pathology Results RESULT Normal FISH Result inv(3) or t(3;3) RPN1::MECOM Fusion: not detected Deletion 5q: not detected Monosomy 7: not detected Deletion 7q: not detected t(8;21) RUNX1::NPMY8U6 Fusion: not detected 11p15 (NUP98) Rearrangement: not detected 11q23 (KMT2A) Rearrangement: not detected inv(16) or t(16;16) CBFB::MYH11 Fusion: not detected INTERPRETATION There was no evidence of RPN1::MECOM fusion due to 3q21/3q26.2 inversion or translocation, deletion 5q31, monosomy 7, deletion 7q31, RUNX1::IXKU2B4 fusion due to translocation (8;21)(q21.3;q22), 11p15 (NUP98) [...] only. 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 Specimens A Bone [...] agent. Report dictated by Sivakumar Garrido DO (Leg Breaker). Attending Physician: Dr. Augustine Davison Icu Specialist: Dr. Sivakumar Garrido DO (Leg Breaker). The procedure was performed by the: The surgical assistant, and the attending radiologist was present [...] year old female who transferred to [facility] on 09/03/2023 for suspected AML. Patient started 7 + 3 (cytarabine and idarubicin) on 09/06/2023. Now receiving HiDAC consolidation due to concern for FRUIT LOADER involvement. 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 #Neutropenic fever, resolved - T-max of 101.1?? F on 09/22. No fever since 09/22. - Infectious workup, incluing LP, RPP, and blood cx, was negative. #Acute respiratory failure with hypoxia, resolved - Occurred 09/22/23 - Suspected to be due to atelectasis, anemia, possible pulmonary embolism, hypophosphatemia - CT chest PE-Suboptimal evaluation of the pulmonary arteries given phase of contrast. However, within the limitations of this examination, there is suggestion of a small nonocclusive pulmonary embolus in a segmental/subsegmental right lower lobe pulmonary artery. - Duplex venous ultrasound negative for DVT - Blood cx 09/22 no growth at 5 days - CXR 09/28 with unchanged diffuse interstitial prominence, could represent pulmonary vascular congestion and/or interstitial pneumonia no pleural effusion or pneumothorax - Will continue to hold anticoagulants at this time due to low suspicion for PE and setting of pt'sprofound thrombocytopenia. 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 - Vast improvement of creamy infiltrates of the retina in both eyes since initial exam. - Unclear etiology - Keep platelets >30K Current ophthalmology recs: - Start PFATs at least 6 times daily, AT [facility] QHS OU - Continue diamox 500 BID at this time - F/u with Dr. Joce JAMES #Elevated ICP - Noted while admitted to the hospital ~10/07/23; LP revealed opening pressure of 31. Meningitis w/unegative. - Concern for IIH - S/p intrathecal MTX 10/06/23 #Small volume SAH in right central sulcus - Per CT 10/01/23 - NSGY will f/u with pt in clinic w/ Dr. Lomeli in ~late October or early November 2023 w/ CT non con for imaging. - Keep plts >30K at this time. PLAN - C1D9 HiDAC consolidation. >> At today's 10/13/23 visit, pt noting significant b/l eye symptoms, as noted above in HPI. Physical exam positive for possible visual field deficits, as well as profuse/excessive eye watering.Pt left clinic before visit complete for visit with ophthalmology. D/t pt's visit lasting beyond our clinic hours, pt went to ED for transfusions and potassium re-check. During this visit, we were unable to review pt's medications as pt left hematology clinic urgently. - Labs reviewed. - Klor-con 60mEq PO tab given x1 in clinic today for K 2.5. Sent rx for Klor-con 20mEq tabs to be taken PO QD to pt's local pharmacy. - Platelets 3; need for platelet transfusions as goal is PLT >30K at this time due to (small) SAH and active vaginal bleeding. - Follow 10/01 BMBx MRD result. - Patient with continued mild to moderate vaginal bleeding . Will continue to moitor Hgb; consider restarting medroxyprogesterone if Hgb drops below 7. - Diamox 500 mg BID, monitor metabolic acidosis - Continue Valtrex for OI ppx and now on Decadron eye drops for conjunctivitis ppx while on high-dose cytarabine - Transfusion parameters: (Leukoreduced and irradiated blood products)pRBC to keep Hgb >7 if hemodynamically stable and no bleeding. PLT transfusion to keep PLT >30K at this time due to (small)SAH and no upcoming NSGY intervention planned. - Due to pt's urgent visit with ophthalmology, was unable to do full medication review with patient. Will plan to review this at her next appointment. Pharmacy team will possibly see & review patient's medications as well. - Pt reports significant concerns with financial burden in light of her new AML diagnosis and the frequent visits / transportation costs. Will request licensed clinical social worker consultation at her next appointment. Per ophthalmology note 10/13/23, pt's overall eye exam appears to be improving since initial concerns during recent admission. Ophthalmology recs: - Start PFATs at least 6 times daily, AT [facility] QHS OU - Continue diamox 500 BID at this time - F/u with Dr. Joce JAMES F/u: Follow up in [facility] hematology clinic on 10/14/23, preferably, or on 10/16/23. Recommended follow up on 10/15, but pt refuses due to not being able to find a ride. Discussed importance of f/u soon dued/t platelet concerns and active vaginal bleeding. Pt states she will try and come 10/14/23, and will call our office to update us. linotype worker to see patient to assist with transportation and financial concerns moving forward. Additionally, will work on finding facility for local labs to be completed. Britni Winston PA-C Blood & Marrow Transplant [facility] RWATER HUNTER documented in this encounter Plan of Treatment Upcoming Encounters Date Type Department Care Team (Late st Contact Info) Description 10/27/2024 10:30 AM UNDERWATER HUNTER Appointment [facility] [address] [place] [address] Hussain Carias MD [address] [place] [id number] Britni Winston PA-C [address] [place] [address] 11/17/2024 9:00 AM UNDERWATER HUNTER Office Visit [facility] - Ophthalmology [address] [place] [phone] Song Hobson MD [address] [place] [address] [place] [address] documented as of this encounter Procedures Procedure Name Priority Date/Time Associated Diagnosis Comments URIC ACID BLOOD STAT 10/13/2023 1:54 PM UNDERWATER HUNTER 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) TYPE + SCREEN PANEL STAT 10/13/2023 1 :54 PM UNDERWATER HUNTER 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) DIFFERENTIAL MANUAL STAT 10/13/2023 1 :54 PM UNDERWATER HUNTER 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) CBC W AUTO DIFFERENTIAL STAT 10/13/2023 1:54 PM UNDERWATER HUNTER 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) COMPREHENSIVE METABOLIC PANEL STAT 10/13/2023 1:54 PM UNDERWATER HUNTER 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) PHOSPHORUS BLOOD STAT 10/13/2023 1:54 PM UNDERWATER HUNTER 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) MAGNESIUM BLOOD STAT 10/13/2023 1:54 PM UNDERWATER HUNTER 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50 x10E9/L 10/13/2023 4:05 PM [facility]ATER [facility]TER [facility] Lymphocyte Absolute 0.47(L) 1.00 - 4.40 x10E9/L 10/13/2023 4:05 PM [facility] Basophil Absolute 0.01 0.00 - 0.13 x10E9/L 10/13/2023 4:05 PM [facility] RBC Morphology NORMAL 10/13/2023 4:05 PM [facility] Blood BLOOD SPECIMEN / Unknown Venipuncture / Unknown 10/13/2023 1:54 PM UNDERWATER HUNTER 10/13/2023 2:03 PM UNDERWATER HUNTER Britni Winston PA-C LAB - HEMATOLOGY ORD ERABLES Performing Organization Address City/[facility]/ZIP Co de Phone Number [facility] [address] [place] [address], [place] [phone] * TYPE + SCREEN PANEL (10/13/2023 1:54 PM UNDERWATER HUNTER) Antibody Screen NEG 2:46 PM UNDERWATER HUNTER [facility] ABO Rh O POS 10/13/2023 2:46 PM UNDERWATER HUNTER [facility] Blood Bank BLOOD SPECIMEN / Unknown Venipuncture / Unknown 10/13/2023 1:54 PM UNDERWATER HUNTER 10/13/2023 2:03 PM UNDERWATER HUNTER Britni Winston PA-C LAB - BLOOD BANK ORD ERAJANES Performing Organization Address City/[facility]/ZIP Co de Phone Number [facility] [address] [place] [address], [place] [phone] * URIC ACID BLOOD (10/13/2023 1:54 PM UNDERWATER HUNTER) Uric Acid 4.0 2.6 - 6.0 mg/dL 10/13/2023 2:[address] [facility] Blood BLOOD SPECIMEN / Unknown Venipuncture / Unknown 10/13/2023 1:54 PM UNDERWATER HUNTER 10/13/2023 2:04 PM UNDERWATER HUNTER Britni Winston PA-C LAB - CHEMISTRY ORDE ELYSIA [facility] [address] [place] [address], [facility] [phone] * PHOSPHORUS BLOOD (10/13/2023 1:54 PM UNDERWATER HUNTER) Phosphorus 3.7 2.9 - 5.1 mg/dL 10/13/2023 2:[address] [facility] Blood BLOOD SPECIMEN / Unknown Venipuncture / Unknown 10/13/2023 1:54 PM UNDERWATER HUNTER 10/13/2023 2:04 PM UNDERWATER HUNTER Britni Winston PA-C LAB - CHEMISTRY JON NAIDU Performing Organization Address City/[facility]/ZIP Co de Phone Number [address] [address], [facility] [phone] * MAGNESIUM BLOOD (10/13/2023 1:54 PM UNDERWATER HUNTER) Magnesium 1.7 1.6 - 2.6 mg/dL 10/13/2023 2:[address] [facility] Blood BLOOD SPECIMEN / Unknown Venipuncture / Unknown 10/13/2023 1:54 PM UNDERWATER HUNTER 10/13/2023 2:04 PM UNDERWATER HUNTER Britni Winston PA-C LAB - CHEMISTRY JON NAIDU Performing Organization Address City/[facility]/ZIP Co de Phone Number [address] [address], [place] [phone] * LDH BLOOD (10/13/2023 1:54 PM UNDERWATER HUNTER) LDH Total 195 125 - 243 Units/L 10/13/2023 2:[address] [facility] Blood BLOOD SPECIMEN / Unknown Venipuncture / Unknown 10/13/2023 1:54 PM UNDERWATER HUNTER 10/13/2023 2:04 PM UNDERWATER HUNTER Britni Winston PA-C LAB - CHEMISTRY JON NAIDU [address] [address] [phone] * (ABNORMAL) COMPREHENSIVE METABOLIC PANEL (10/13/2023 1:54 PM [facility]) BUN 16 7 - 26 mg/dL 10/13/2023 2:33 PM [facility] Creatinine 0.69 0.56 - 0.96 mg/dL 10/13/2023 2:33 PM [facility] Sodium 140 136 - 145 mmol/L 10/13/2023 2:33 PM [facility] Potassium 2.5(L) 3.5 - 4.5 mmol/L 10/13/2023 2:33 PM [facility] Chloride 111(H) 98 - 107 mmol/L 10/13/2023 2:33 PM [facility] CO2 16(L) 22 - 29 mmol/L 10/13/2023 2:33 PM [facility] Glucose 112 70 - 115 mg/dL 10/13/2023 2:33 PM [facility] Calcium 9.6 8.4 - 10.2 mg/dL 10/13/2023 2:33 PM [facility] Protein Total 7.0 6.0 - 8.3 g/dL 10/13/2023 2:33 PM [facility] Albumin 3.6 3.4 - 5.0 g/dL 10/13/2023 2:33 PM [facility] Bilirubin Total 0.8 0.2 - 1.2 mg/dL 10/13/2023 2:33 PM [facility] Alkaline Phosphatase 80 40 - 150 U/L 10/13/2023 2:33 PM [facility] ALT 75(H) 5 - 55 U/L 10/13/2023 2:33 PM [facility] AST 24 5 - 34 U/L 10/13/2023 2:33 PM [facility] Anion Gap 13 6 - 16 10/13/2023 2:33 PM [facility] BUN/Creatinine Ratio 23 7 - 23 10/13/2023 2:33 PM [facility] Osmolality Calculated 292 275 - 295 mOsm/kg 10/13/2023 2:33 PM [facility] Albumin/Globulin Ratio 1.1 1.1 - 2.3 10/13/2023 2:33 PM [facility] eGFR by CKD-EPI >90 >=90 mL/min/1.7 3 m2 10/13/2023 2:33 PM [facility] Blood BLOOD SPECIMEN / Unknown Venipuncture / Unknown 10/13/2023 1:54 PM UNDERWATER HUNTER 10/13/2023 2:04 PM UNDERWATER HUNTER Britni Winston PA-C LAB - CHEMISTRY JON NAIDU [facility] [address] [place] [address], [facility] [phone] * (ABNORMAL) CBC W AUTO DIFFERENTIAL (10/13/2023 1:54 PM [facility]) WBC 0.5(LL) 4.0 - 10.7 x10E9/L 10/13/2023 4:11 PM [facility] RBC Count 2.54(L) 3.90 - 5.20 x10E12/L 10/13/2023 4:11 PM [facility] Hemoglobin 7.5(L) 11.9 - 15.8 g/dL 10/13/2023 4:11 PM [facility] Hematocrit 20.2(L) 34.8 - 46.1 % 10/13/2023 4:11 PM [facility] MCV 79.5(L) 80.0 - 98.0 fL 10/13/2023 4:11 PM [facility] MCH 29.5 26.7 - 33.6 pg 10/13/2023 4:11 PM [facility] MCHC 37.1(H) 31.7 - 36.3 g/dL 10/13/2023 4:11 PM [facility] RDW-CV 12.7 11.3 - 14.8 % 10/13/2023 4:11 PM [facility] Platelet Count 3(LL) 150 - 420 x10E9/L 10/13/2023 4:11 PM [facility] Preliminary Absolute Neutrophil 0.05(L) 1.60 - 7.50 x10E9/L 10/13/2023 4:11 PM [facility] Blood BLOOD SPECIMEN / Unknown Venipuncture / Unknown 10/13/2023 1:54 PM UNDERWATER HUNTER 10/13/2023 2:03 PM UNDERWATER HUNTER Britni Winston PA-C LAB - HEMATOLOGY ORD ERABLES 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 $ Given 10/13/2023 2:54 PM UNDERWATER HUNTER 60 mEq documented in this encounter Care Teams Asphalt Raker Relationship Specialty Start Date End Date Nilam Mayers MD [address] [place] [phone] PCP - General Family Medicine 09/04/23 04/18/24 documented as of this encounter
--- OUTSIDE RECORDS SUMMARY | 2024-08-31 21:31 | XMS_ITS | Encounter Summary ---
Author Organization [facility] Address [facility] [place] [address] Care Team Providers Care Sporting Goods Sales Manager Name Role Phone Nilam Mayers MD Primary Care Provider [phone]- [phone] Reason for Visit * Reason Comments Transitional Care Encounter Details Date Type Department Care Team (Late st Contact Info) Description 10/13/2023 Transitional Care Transitional Care at [address] [phone] Lupe Waldron, homicide squad commanding officer Social History Tobacco Use Types Packs/Day Years [...] care, and heating? Not very hard 09/06/2023 [facility] [place] of Occupat ional Health - Occupational [...] slept in a alf (including now)? No 09/06/2023 Sex and Gender [...] encounter Miscellaneous Notes * Telephone Encounter - Lupe Waldron RN - 10/13/2023 9:16 AM CST RN 48 hour post discharge follow-up contact by telephone: Patient with recent IP discharge from [facility] on 10/09/23. RN attempted to reach Sarah Mckeon today by telephone ([phone]) to complete 48 hour post discharge follow-up contact. RN was unable to reach Sarah at this time and this RN left voice message, encouraging patient to call this lyric writer back when available to provide update since last follow-up contact. RN will await call back from and will continue to follow Patient for Bridge clinic appointment. Bridge appt details are on AVS/MyChart. ?? Call Duration: 1 min Lupe Waldron RN, BSN Frame Bender, [facility] Office: [phone] 10/13/2023 FIRER/FIREMAN documented in this encounter Plan of Treatment Upcoming Encounters Date Type Department Care Team (Late st Contact Info) Description 10/27/2024 10:30 AM SHOP FIRER/FIREMAN Appointment [facility] [address] [place] [address] Hussain Carias MD [address] [place] [phone] Britni Winston, PA-C [address] [place] [address] 11/17/2024 9:00 AM SHOP FIRER/FIREMAN Office Visit [facility] - Ophthalmology [address] [place] [phone] Song Hobson MD [address] [place] [address] [place] [phone] documented as of this encounter Visit Diagnoses Not on filedocumented in this encounter Care Teams Sporting Goods Sales Manager Relationship Specialty Start Date End Date Zaria-Nilam Johnson MD [address] [place] [phone] PCP - General Family Medicine 09/04/23 04/18/24 documented as of this encounter
--- OUTSIDE RECORDS SUMMARY | 2024-08-31 21:31 | XMS_ITS | Encounter Summary ---
Author Organization [facility] Address [facility] [place] [address] Care Team Providers Care Dental Aide Name Role Phone Nilam Mayers MD Primary Care Provider [phone]- [phone] Reason for Visit * Reason Comments Follow-up Encounter Details Date Type Department Care Team (Late st Contact Info) Description 10/13/2023 2:45 PM BRAILLE CODER Office Visit [facility] - Ophthalmology [address] [place] [phone] Hussain Carias MD [address] [place] [address] Nilam Mayers MD [address] [place] [address] Papilledema (Primary Dx); IIH (idiopathic intracranial hypertension) Social History Tobacco [...] care, and heating? Not very hard 09/06/2023 [facility] [place] of Occupat ional Health - Occupational Stress [...] slept in a jail (including now)? No 09/06/2023 Sex and Gender [...] No 10/09/2023 documented as of this encounter Patient Instructions * Patient Instructions* Shannan Woods MD - 10/13/2023 5:11 PM BRAILLE CODER [facility] Ophthalmology Located at: [facility] Medicine Ophthalmology [address] [place] [address] Your Visit from 10/13/2023 Follow up Appointment: - It is important that you follow up with us for the health of your eyes. - If you have trouble making or getting to your appointment please call our clinic Eye Drop Instructions: Use the following eye drops as directed below. If you were previously using other drops, please discontinue those at this time. Please wait 3-5 minutes between drops. Both Eyes (OU) START Artificial tears ointment/gel (Refresh PM, Systane Nighttime, Generic brand) at bedtime START PRESERVATIVE FREE artificial tears (Refresh, Systane, Generic brand)--these should usually befound in single use plastic vials--at least six times daily Oral Medications: Continue diamox Activity Instructions: Please Do Not Rub your Eyes Reasons to call: - call with any new changes in vision, including if you feel your vision worsens - call if you have new flashes, floaters, or a feeling of a curtain coming down over your vision - call with any questions about your drops or eye medications, or if you have trouble getting thesemedicines. Phone Number: Week (8am-5pm) - Call [phone] () Evenings, Weekends, or Holidays: Call [phone] and dial [phone] for the mixing house operator. Ask to speak to the eye doctor production material handler. They will connect us. LLE CODER documented in this encounter Progress Notes * Shannan Woods MD - 10/13/2023 4:40 PM CST Images from the original note were not included. Ophthalmology Office Note Resident On-Call ([facility]) Clinic Subjective: Chief Complaint Patient presents with ??? Follow-up Ms. Sarah Kineke is a 38 year old female who presents today for evaluation of eye discomfort. Sarah Mckeon is a 38 year old female here for a neuro follow up. HVF and OCTH performed today. Finished her decadron eye drops from her oncologist on Friday. Afterwards she began has been having pain in both of her eyes. Says she feels like she can't open her eyes until she cries. Has FBS and grittiness that comes and goes. Has lots of tearing but denies mucous or purulent discharge. Floaters have remained the same, says she sees occasionally sees FOL but those have not changed either. Denies any eye trauma or injury. Still taking diamox 500 BID. Drops: None Past History: Past Medical History: Diagnosis Date ??? [...] Current Outpatient Medications Medication Sig Dispense Refill ??? acetaZOLAMIDE (Diamox) [...] 60 tablet 2 No current facility-administered medications for this visit. No Known Allergies Objective: Base Eye Exam Visual Acuity (Snellen - Linear) Right Left Dist sc 20/30 -1 20/25 -1 Dist ph sc 20/20 -3 20/20 -2 Tonometry (Tonopen, 3:51 PM) Right Left Pressure 12 14 Pupils Dark Light Shape React Right 5 3 Round Brisk Left 5 3 Round Brisk Please re check Neuro/Psych Oriented x3: Yes Mood/Affect: Normal Dilation Both eyes: 1.0% Mydriacyl, 2.5% Dar Synephrine @ 3:52 PM Additional Tests Color Right Left Ishihara Slit Lamp and Fundus Exam External Exam Right Left External Normal Normal Slit Lamp Exam Right Left Lids/Lashes Normal Normal Conjunctiva/Sclera White and quiet White and quiet Cornea Diffuse 2+ SPEE Diffuse 2-3+ SPEE Anterior Chamber Deep and quiet Deep and quiet Iris Round and reactive Round and reactive Lens Clear Clear Vitreous PVD Normal Fundus Exam Right Left Disc Resolving Disc edema vs infiltrate with peripapillary hemorrhages Resolving Disc edema only nasal Macula Resolved small white retinal lesions Resolved small white retinal lesion Vessels dilated and tortuous dilated and tortuous Periphery subILM heme, preretinal and intraretinal hemorrhages, inferotemporal birmingham spot preretinaland intraretinal hemorrhages Study Findings 10/13/2023: Review of HVF: date: pattern deviation, reliability. (foveal threshold), (VFI), (Mean Deviation). 10/13/2023: scattered nonspecific defects but overall full gonzales OU improved from prior, good reliability OU (37 dB OD, 35 dB OS), (96% OD, 97% OS), (-2.9 dB OD, -3.8 dB OS). DOLL AUTO VISUAL FIELD EXTENDED OCT: average RNFL of ONH: 153 OD, 134 OS improved from prior of 175 OD 165 OS OPTIC NERVE ANALYSIS OCT The diagnostic test and above interpretation are reviewed and I agree with the changes made as needed as above. Hina Wahl MD Assessment/Plan: Sarah Mckeon is a 38 year old female Resolving papilledema, both eyes Hx of Elevated ICP Elevated discs OU with worsening today from prior Likely grade 3-4, though with difficult visualization of the surrounding blood vessels due to obscuration from heme. CT with multiple indications of increased ICP- scleral indentation - Presentation:??Denies TVOs, denies pulsatile tinnitus - Risk factors:??obesity with BMI:46.9, pulse of high dose steroids :dexamethasone 8-12mg from 09/05-09/10, Setting of AML?? - VA??20/20, color??full - Exam notable for??grade 3-4 disc edema with hemorrhages ( worsened by platelet value), opening pressure of LP was unmeasured 10/01/23. MRV: no thrombosis, stenosis of multiple sinuses c/w IIH. Neurology states this is cavernous sinus thrombosis in their note. Interval: HVF unreliable and no clear pattern of retrochiasmal involvement with likely artifact of testing, OCT nerve stable from previous avg RNFLthinner today RNFL: 180->175, 257->165 (with heavy segmentation error today and previous OCT). Visual function remains minimally affected if at all. VA: 20/20, Color vision full. Visual field largely unchanged from prior. - Interval Hx: LP with opening pressure measured on 10/06/23 with 31 cm H2O measured, confirming increased ICP. 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 VA 20/30 OD 20/25 OS, IOP wnl, color vision full, Exam with diffuse SPEE OU, OCT with continued improved edema, HVF with improved visual gonzales, resolving hemorrhages on DFE ?? 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 Stable creamy lesions on exam. ??-OCT macula with elevation near bruchs membrane at the location of creamy small lesions.?? -Vast improvement of creamy infiltrates of the retina in both eyes since initial exam. ? - So far likely etiology is leukemic infiltration of the retina vs. Possible infectious etiology. Plan: - Start PFATs at least 6 times daily, AT alma QHS OU - Continue diamox 500 BID at this time - Per patient's oncology team, patient to head to ED today for blood product transfusion - F/u in [address] Hobson for repeat HVF and OCT-H nerve Patient verbalizes understanding of the above assessment/plan, patient's questions were answered tothe best of my ability, and patient agrees with the plan. Patient was seen with Dr. aWhl and discussed with Dr. Hobson. Shannan Woods MD Ophthalmology Resident 10/13/2023 Pt verbalizes understanding of the above assessment/plan, all questions were answered, and pt agrees to follow-up. I have personally examined the patient with the wrapper stripper/resident, and have revised the above note to document my findings/assessment/plan. Hina Wahl MD LLE CODER documented in this encounter Plan of Treatment Upcoming Encounters Date Type Department Care Team (Late st Contact Info) Description 10/27/2024 10:30 AM BRAILLE CODER Appointment [facility] [address] [place] [address] Hussain Carias MD [address] [place] [phone] Britni Winston, BASILIAC [address] [place] [address] 11/17/2024 9:00 AM BRAILLE CODER Office Visit [facility] - Ophthalmology [address] [place] [phone] Song Hobson MD [address] [facility] [place] [address] documented as of this encounter Results * DOLL AUTO VISUAL FIELD EXTENDED (10/13/2023 3:21 PM BRAILLE CODER) Anatomical Region Laterality Modality Head External-Camera Photography Narrative 10/28/2023 7:23 AM BRAILLE CODER Images from the original result were not [...] OPTIC NERVE ANALYSIS OCT (10/13/2023 3:21 PM BRAILLE CODER) Anatomical Region Laterality Modality Head External-Camera Photography Narrative 10/28/2023 7:23 AM BRAILLE CODER Images from the original result were not included. OCT: average RNFL of ONH: 153 OD, 134 OS improved from prior of 175 OD 165 OS Nilam Mayers MD OPHTHALMOLOGY [facility] D ORD W PACS documented in this encounter Visit Diagnoses Diagnosis Papilledema- Primary IIH (idiopathic intracranial hypertension) Benign intracranial hypertension IIH (idiopathic intracranial hypertension)- Primary Benign intracranial hypertension IIH (idiopathic intracranial hypertension)- Primary Benign intracranial hypertension documented in this encounter Care Teams Dental Aide Relationship Specialty Start Date End Date Nilam Mayers MD [address] [place] [phone] PCP - General Family Medicine 09/04/23 04/18/24 documented as of this encounter
--- OUTSIDE RECORDS SUMMARY | 2024-08-31 21:31 | XMS_ITS | Encounter Summary ---
Author Organization [facility] Address [address] [place] [id number] Care Team Providers Care Microbiology Supervisor Name Role Phone Nilam Mayers MD Primary Care Provider [phone] Reason for Visit * Reason Comments Abnormal Lab Pt sent to ED by BMT clinic for platelet transfusion. Pt said she was too late to receive at the clinic. Pt reports platelets are 3. Pt denies nausea, vomiting, fever, chills, diarrhea. 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 Not very hard 09/06/2023 [facility] [place] [facility] - Occupational [...] slept in a detention (including now)? No 09/06/2023 Sex and Gender Information Value Date Recorded Sex Assigned at Not on file Gender Identity Female 02/13/2024 1:12 PM CDT Sexual Orientation Not on file documented as of this encounter Last Filed Vital Signs Vital Sign Reading Time Taken Comments Blood Pressure 133/86 10/13/2023 10:00 PM PROJECT ARCHITECT Pulse 106 10/13/2023 10:00 PM PROJECT ARCHITECT Temperature 36.7 ??C (98 ??F) 10/13/2023 10:00 PM PROJECT ARCHITECT Respiratory Rate 23 10/13/2023 10:00 PM PROJECT ARCHITECT Oxygen Saturation 100% 10/13/2023 10:00 PM PROJECT ARCHITECT Inhaled Oxygen Concentration - - Weight 107 kg (236 lb) 10/13/2023 5:23 PM PROJECT ARCHITECT Height 157.5 cm (5' 2 ) 10/13/2023 5:23 PM PROJECT ARCHITECT Body Mass Index 43.16 10/13/2023 5:23 PM PROJECT ARCHITECT documented in this encounter Functional Status Functional [...] this encounter Discharge Instructions * Discharge Instructions* Osmar Gasca DO - 10/13/2023 10:46 PM PROJECT ARCHITECT You were evaluated for a low platelet count. You received one unit of platelets and your levels mercedes to 40. We also provided you with supplemental potassium and magnesium. Please follow-up with the BMT team tomorrow. Please burr picker the supplemental potassium they called in for you. Please return to the ER immediately for any new or worsening concerns, specifically, bleeding, altered mentation, severe, headache, or other concerns. ECT ARCHITECT documented in this encounter Medications at Time [...] 10/08/2023 11/03/2023 documented as of this encounter ED Notes * Yoly Delgadillo RN - 10/13/2023 11:00 PM CST Patient discharged home in company of her boyfriend in a stable general condition. ECT ARCHITECT * Osmar Gasca DO - 10/13/2023 8:47 PM CST [facility] EMERGENCY DEPARTMENT Sarah Mckeon is a 38 year old female PMHx AML who presents to the ER for a platelet transfusion. Pt was scheduled for transfusion today but missed clinic appointment 2/ urgent ophthalmological exam. Plan for 1u platelet transfusion, and a recheck of the patient's platelet count and whole blood potassium. Pt presentation, course, and plan discussed with attending emergency medicine physician Dr. Frederick Fam. K 2.7. Will replete magnesium and potassium. Pt informed BMT team sent K supplement Rx to pharmacy for her to burr picker and begin in AM. Signed out to incoming team at transition of care. Impression: 1. Low platelet count (CMS-HCC) 2. Acute leukemia not having achieved remission ([facility]-HCC) Disposition: Pending CBC. ECT ARCHITECT * Frederick Fam MD - 10/13/2023 7:54 PM CST Resident Attestation I have performed an independent history and physical examination and discussed the patient's management with the resident. I confirm the residents findings, assessment and plan of care except where revised on this note. Interval History: Sarah Mckeon 38 year old female with a past medical history that includes pancytopenia, IIH is presenting to the ED sent by BMT clinic for platelet transfusion, workup for IIH. Patient has no other complaints. History is obtained from patient and is located in my HPI section. I also externally reviewed previous records that I had access to within [facility] and noted relevant statements in my HPI. ROS: Pertinent ROS as per HPI Past Medical History: Diagnosis Date ??? NEGATIVE PAST MEDICAL HISTORY - SEE PROBLEM LIST Past Surgical History: Procedure Laterality Date ??? Section ??? Cholecystectomy ??? KIDNEY STONES, REMOVAL Social History Tobacco Use ??? Smoking status: Former Packs/day: 1 Types: Cigarettes Start date: 2004 Quit date: 2010 Years since quittin.0 ??? Smokeless tobacco: Never Vaping Use ??? Vaping Use: Never used Substance Use Topics ??? Alcohol use: Yes Comment: occasional ??? Drug use: Never No Known Allergies No current facility-administered medications for this encounter. Current Outpatient Medications Medication Sig ??? acetaZOLAMIDE (Diamox) 250 MG tablet Take 2 (two) tablets by mouth 2 times daily ??? dicyclomine (Bentyl) 20 MG tablet Take 1 (one) tablet by mouth 3 times daily as needed (cramping) ??? famotidine (Pepcid) 20 MG tablet Take 1 (one) tablet by mouth 2 times daily ??? levoFLOXacin (Levaquin) 500 MG tablet Take 1 (one) tablet by mouth once daily ??? ondansetron, disintegrating, (Zofran ODT) 8 MG tablet Take 1 (one) tablet by mouth 2 times daily as needed for Nausea/Vomiting Allow tablet to dissolve on the tongue ??? posaconazole (Noxafil) 100 MG tablet Take 3 (three) tablets by mouth 2 times daily for 1 day, THEN 3 (three) tablets daily with dinner for 30 days. ??? potassium chloride ER 10 MEQ tablet Take 2 (two) tablets by mouth once daily ??? prochlorperazine (Compazine) 10 MG tablet Take 1 (one) tablet by mouth every 6 hours as needed for Nausea/Vomiting ??? valACYclovir (Valtrex) 500 MG tablet Take 1 (one) tablet by mouth 2 times daily Exam: Vitals: 10/13/23 1935 10/13/23 1950 10/13/23203810/13/23 2200 BP: 131/88 143/80 135/92 133/86 Pulse: 99 98 91 106 Resp: 12 13 12 23 Temp: 97.9 ??F (36.6 ??C) 98 ??F (36.7 ??C) 97.9 ??F (36.6 ??C) 98 ??F (36.7 ??C) SpO2: 99% 100% 100% 100% Weight: Height: Gen- no acute distress Eyes- normal conjunctiva Ent- no neck swelling Cv- heart without murmur, normal pulses bilateral radial Resp- No respiratory distress, lung clear to auscultation Abd- soft, nontender, normal bowel sounds Ms- no ext swelling Neuro- Steady, stable gain, awake and alert, normal motor all 4 MDM: DDx: asymptomatic thrombocytopenia Plan: discuss with BMT Labs Reviewed CBC W AUTO DIFFERENTIAL - Abnormal; Notable for the following components: Result Value WBC 0.5 (*) RBC Count 2.27 (*) Hemoglobin 6.6 (*) Hematocrit 17.8 (*) MCV 78.4 (*) MCHC 37.1 (*) Platelet Count 40 (*) All other components within normal limits POTASSIUM WHOLE BLD - Abnormal; Notable for the following components: Potassium Whole Blood 2.7 (*) All other components within normal limits DIFFERENTIAL MANUAL - Abnormal; Notable for the following components: Neutrophil % 3 (*) Lymphocyte % 96 (*) Monocyte % 1 (*) Neutrophil Absolute 0.02 (*) Lymphocyte Absolute 0.48 (*) Monocyte Absolute 0.01 (*) Microcytosis MODERATE (*) All other components within normal limits PREPARE PLATELET PHERESIS UNIT(S) Lab interpret: Thrombocytopenia No orders to display ED COURSE: 6:50 PM Patient requests no IV access because she has a port. She states that she had a traumatic experience in a hospital when nurses tried multiple attempts to get peripheral IV in place. 6:54 PM Patient reports getting platelet transfusions in the past, she only receives one bag and typically does not have her levels rechecked. 11:06 PM Spoke with BMT, they are aware that she is anemic at 6.2, but platelets have improved to 40. Patient is okay with being discharged, will be seen tomorrow at clinic where she will recieve unit of blood. Pt wishes this, does not want to stay longer, is not symptomatic. 11:08 PM: Resident has reviewed her diagnostic findings and she has had an opportunity to ask no any questions she has about care, diagnosis and discharge plan. Patient is comfortable with the discharge plan. She will follow up as directed and will return to the ER if her condition worsens or she develops other urgent concerns. pt counseled on findings and plan Clinical Impression: 1. Low platelet count (CMS-HCC) 2. Acute leukemia not having achieved remission (CMS-HCC) 3. Hypokalemia Conclusion and Disposition: Acute problems: Refer to HPI Exacerbations of chronic problems: Refer to HPI Systemic issues: Refer to HPI Consultations in the ED: Refer to ED course Medication changes: Refer to ED course and disposition tab Follow up: Refer to ED course and disposition tab Disposition: discharge Please see resident note for further details By signing my name below, I, Roberto Booth, attest that this documentation has been preparedunder the direction and in the presence of Dr. Fam. Signed: Kayla Shelby. I, Dr. Fam, personally performed the services described in this documentation. All medical record entries made by the belindaibe were at my direction and in my presence. I have reviewed the chart andagree that the record reflects my personal performance and is accurate and complete. Electronically signed: Dr. Fam Date: 10/14/23 Time: 7:55 PM ECT ARCHITECT * Yady Barajas RN - 10/13/2023 7:18 PM CST Report given to Cat RN. * Yady Barajas RN - 10/13/2023 6:11 PM CST Consent form signed. ECT ARCHITECT * Yady Barajas RN - 10/13/2023 6:02 PM CST Pt informed this RN that her port is actually already accessed. Per ED telegraphic instrument supervisor, this RN may use already accessed port. ECT ARCHITECT * Yady Barajas RN - 10/13/2023 5:54 PM CST This RN informed by [facility] staff that this RN is unable to access pt's port and must try a PIV per [facility]. This RN informed pt of this. Pt tearful and refusing PIV. ED telegraphic instrument supervisor notified. ECT ARCHITECT * Yady Barajas RN - 10/13/2023 5:43 PM CST This RN agrees with triage note: Chief Complaint Patient presents with Abnormal Lab Pt sent to ED by BMT clinic for platelet transfusion. Pt said she was too late to receive at the clinic. Pt reports platelets are 3. Pt denies nausea, vomiting, fever, chills, diarrhea. Denies SOB orCP Pt A&Ox4 (person, place, time, and situation). Respirations even and unlabored. Equal rise and fall of the chest noted. Skin warm, dry, and pale. PMS intact. NAD noted. No continuous VS monitor available at this time. Family at the bedside. Pt sitting in recliner. Pt denies having any further needs. Pt in shipman spot so no call light available. Pt within view of nurses station. ECT ARCHITECT * Raffy Dai RN - 10/13/2023 5:41 PM CST Bed: [address] Expected date: Expected time: Means of arrival: Comments: [place] ECT ARCHITECT * Salma Lynch RN - 10/13/2023 5:33 PM CST Pt sent to ED by BMT clinic for platelet transfusion. Pt said she was too late to receive at the clinic. Pt reports platelets are 3. Pt denies nausea, vomiting, fever, chills, diarrhea. Denies SOB orCP Past Medical History: Diagnosis Date ??? NEGATIVE PAST MEDICAL HISTORY - SEE PROBLEM LIST Past Surgical History: Procedure Laterality Date ??? Section ??? Cholecystectomy ??? KIDNEY STONES, REMOVAL ECT ARCHITECT documented in this encounter Plan of Treatment Upcoming Encounters Date Type Department Care Team (Late st Contact Info) Description 10/27/2024 10:30 AM PROJECT ARCHITECT Appointment [facility] BMT CLINIC [address] [place] [address] Hussain Carias MD [address] [place] [phone] Britni Winston PAChristianne [address] [place] [address] 11/17/2024 9:00 AM PROJECT ARCHITECT Office Visit [facility] - Ophthalmology [address] [place] [phone] Song Hobson MD [address] [place] [address] [place] [address] documented as of this encounter Procedures Procedure Name Priority Date/Time Associated Diagnosis Comments DIFFERENTIAL MANUAL STAT 10/13/2023 9 :40 PM PROJECT ARCHITECT CBC W AUTO DIFFERENTIAL STAT 10/13/2023 9:40 PM PROJECT ARCHITECT POTASSIUM WHOLE BLD STAT 10/13/2023 9 :40 PM PROJECT ARCHITECT TRANSFUSE PLATELET PHERESIS UNIT(S) Routine 10/13/2023 7:35 PM PROJECT ARCHITECT PREPARE PLATELET PHERESIS UNIT(S) STAT 10/13/2023 6:35 PM PROJECT ARCHITECT OBTAIN CONSENT FOR TRANSFUSION Routine 10/13/2023 5:53 PM PROJECT ARCHITECT documented in this encounter Results * (ABNORMAL) DIFFERENTIAL MANUAL (10/13/2023 9:40 PM PROJECT ARCHITECT) Neutrophil % 3(L) 41 - 74 % 10/13/2023 10:32 PM [facility] Lymphocyte % 96(H) 17 - 47 % 10/13/2023 10:32 PM [facility] Monocyte % 1(L) 3 - 11 % 10/13/2023 10:32 PM [facility] Neutrophil Absolute 0.02(L) 1.60 - 7.50 x10E9/L 10/13/2023 10:32 PM [facility] Lymphocyte Absolute 0.48(L) 1.00 - 4.40 x10E9/L 10/13/2023 10:32 PM [facility] Monocyte Absolute 0.01(L) 0.15 - 1.00 x10E9/L 10/13/2023 10:32 PM [facility] RBC Morphology REVIEWED 10/13/2023 10:32 PM [facility] Microcytosis MODERATE(A) (none) 10/13/2023 10:32 PM [facility] Blood BLOOD SPECIMEN / Unknown Venipuncture / Unknown 10/13/2023 9:40 PM PROJECT ARCHITECT 10/13/2023 9:47 PM PROJECT ARCHITECT Frederick Fam MD LAB - HEMATOLOGY ORD ERABLES [facility] [address] [place] [phone], [facility] [phone] * (ABNORMAL) POTASSIUM WHOLE BLD (10/13/2023 9:40 PM PROJECT ARCHITECT) [facility] Potassium Whole Blood 2.7(L) 3.5 - 5.5 mmol/L 10/13/2023 9:50 PM [facility] Blood WHOLE BLOOD SPECIMEN / Unknown Venipuncture / Unknown 10/13/2023 9:40 PM PROJECT ARCHITECT 10/13/2023 9:44 PM PROJECT ARCHITECT Frederick Fam MD LAB - CHEMISTRY [facility]ON [facility] [address] [address], [facility] [phone] * (ABNORMAL) CBC W AUTO DIFFERENTIAL (10/13/2023 9:40 PM PROJECT ARCHITECT) [facility] WBC 0.5(LL) 4.0 - 10.7 x10E9/L 10/13/2023 10:33 PM [facility] RBC Count 2.27(L) 3.90 - 5.20 x10E12/L 10/13/2023 10:33 PM [facility] Hemoglobin 6.6(L) 11.9 - 15.8 g/dL 10/13/2023 10:33 PM [facility] Hematocrit 17.8(L) 34.8 - 46.1 % 10/13/2023 10:33 PM [facility] MCV 78.4(L) 80.0 - 98.0 fL 10/13/2023 10:33 PM [facility] MCH 29.1 26.7 - 33.6 pg 10/13/2023 10:33 PM [facility] MCHC 37.1(H) 31.7 - 36.3 g/dL 10/13/2023 10:33 PM [facility] RDW-CV 12.5 11.3 - 14.8 % 10/13/2023 10:33 PM [facility] Platelet Count 40(L) 150 - 420 x10E9/L 10/13/2023 10:33 PM PROJECT ARCHITECT [facility] MPV 10.3 7.8 - 11.4 fL 10/13/2023 10:33 PM PROJECT ARCHITECT [facility] Blood BLOOD SPECIMEN / Unknown Venipuncture / Unknown 10/13/2023 9:40 PM PROJECT ARCHITECT 10/13/2023 9:47 PM PROJECT ARCHITECT Frederick Fam MD LAB - HEMATOLOGY ORD ERABLES [facility] [address] [place] [address], [facility] [phone] * TRANSFUSE PLATELET PHERESIS UNIT(S) (10/13/2023 8:40 PM PROJECT ARCHITECT) Laureen Gupta MD NURSING - BLOOD PROD TRANSFUSION * TRANSFUSE PLATELET PHERESIS UNIT(S), 1 Units (10/13/2023 8:40 PM PROJECT ARCHITECT) Laureen Gupta MD NURSING - BLOOD PROD TRANSFUSION * PREPARE PLATELET PHERESIS UNIT(S), 2 Units (10/13/2023 6:35 PM PROJECT ARCHITECT) Unit Description LRPLTpher B7 IR [facility] BLOOD BANK LAB Unit ABO O [facility] BLOOD [facility] LAB Unit Rh POS [facility] BLOOD [facility] LAB Product Number P33 [facility] B LOOD BANK LAB Unit Donor # [id number] [facility] BLOOD BANK LAB Unit Status released [facility] BLOO D BANK LAB Product Code [id number] [facility] BLO OD BANK LAB Blood Type Barcode 5100 [facility] BLOOD BANK LAB Expiration Date S BLOOD BANK LAB Unit Description LRPLTphere B7 IR [facility] BLOOD BANK LAB Unit ABO AB [facility] BLOOD [facility]ANK LAB Unit Rh NEG [facility] BLOOD BANK LAB Product Number P30 [facility] B LOOD BANK LAB Unit Donor # [id number] [facility] BLOOD BANK LAB Unit Status transfused [facility] BLO OD BANK LAB Product Code [id number] [facility] BLO OD BANK LAB Blood Type Barcode 2800 [facility] BLOOD BANK LAB Expiration Date S BLOOD BANK LAB Blood Bank BLOOD SPECIMEN / Unknown Laureen Gupta MD LAB - BLOOD BANK ORD ERABLES [facility] BLOOD BANK LAB [address] [place] [address], [facility] [phone] documented in this encounter Visit Diagnoses Diagnosis Low platelet count (HCC)- Primary 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) Acute leukemia of unspecified cell type, without mention of having achieved remission Hypokalemia Hypopotassemia documented in this encounter Administered Medications Inactive Administered Medications - up to 3 most recent administrations Medication Order MAR Action Action Date Dose Rate Site 0.9% NaCl infusion rate and volume at 20 mL/hr, 250 mL, ONCE PRN, Starting on Fri10/13/23 at 1749, Until Fri10/14/23 at 0142, Normal Saline flush bag for blood and blood product administration 0.9% NaCl injection 1-10 mL 1-10 mL, Intracatheter, PRN, Other, peripheral line flush, Starting on Fri10/13/23 at 1749, Until Fri10/14/23 at 0142, Flush peripheral IV catheter with 1-10 mL of normal saline before and after medications and prn to clear blood from the line or to verify patency. 0.9% NaCl injection 3 mL 3 mL, Intracatheter, EVERY 8 HOURS, First dose on Fri10/13/23 at 2200, Until Discontinued, Flush peripheral IV catheter with 3 mL of normal saline every 8 hours. $ Given 10/13/2023 9:45 PM PROJECT ARCHITECT 3 mL magnesium oxide (Mag-Ox) tablet 400 mg 400 mg, Oral, NOW, 1 dose, On Fri10/13/23 at 2215 $ Given 10/13/2023 10:43 PM PROJECT ARCHITECT 400 mg potassium chloride ER (Klor-Con M) tablet 40 mEq 40 mEq, Oral, ONCE, 1 dose, On Fri10/13/23 at 2230, Do not crush or chew. $ Given 10/13/2023 10:44 PM PROJECT ARCHITECT 40 mEq potassium chloride ER (Klor-Con M) tablet 40 mEq 40 mEq, Oral, ONCE, 1 dose, On Fri10/13/23 at 2245, Do not crush or chew. $ Given 10/13/2023 10:43 PM PROJECT ARCHITECT 40 mEq documented in this encounter Active and Recently Administered Medications Times are shown in PROJECT ARCHITECT. Scheduled Medication Order 10/11/2023 10/12/2023 10/13/2023 0.9% NaCl injection 3 mL(Linked Group 1) 3 mL, Intracatheter, EVERY 8 HOURS, First dose on Fri10/13/23 at 2200, Until Discontinued, Flush peripheral IV catheter with 3 mL of normal saline every 8 hours. 214 ($ Given - Prov ider: Yoly Delgadillo RN) magnesium oxide (Mag-Ox) tablet 400 mg (COMPLETED) 400 mg, Oral, NOW, 1 dose, On Fri10/13/23 at 2215 2243 ($ Given - Prov ider: Yoly Delgadillo RN) potassium chloride ER (Klor-Con M) tablet 40 mEq (COMPLETED) 40 mEq, Oral, ONCE, 1 dose, On Fri10/13/23 at 2230, Do not crush or chew. 2243 ($ Given - Prov ider: Yoly Delgadillo RN) potassium chloride ER (Klor-Con M) tablet 40 mEq (COMPLETED) 40 mEq, Oral, ONCE, 1 dose, On Fri10/13/23 at 2245, Do not crush or chew. 2243 ($ Given - Prov ider: Yoly Delgadillo RN) PRN Medication Order 10/11/2023 10/12/2023 10/13/2023 0.9% NaCl infusion rate and volume at 20 mL/hr, 250 mL, ONCE PRN, Starting on Fri10/13/23 at 1749, Until Fri10/14/23 at 0142, Normal Saline flush bag for blood and blood product administration 0.9% NaCl injection 1-10 mL(Linked Group 1) 1-10 mL, Intracatheter, PRN, Other, peripheral line flush, Starting on Fri10/13/23 at 1749, Until Fri10/14/23 at 0142, Flush peripheral IV catheter with 1-10 mL of normal saline before and after medications and prn to clear blood from the line or to verify patency. Linked Groups Order Group 1: SALINE LOCK, INSERT AND MAINTAIN (COMPLETED) Routine, CONTINUOUS, Starting on Fri10/13/23 at 1800, Until Specified, New collection, Task Completed: Yes And 0.9% NaCl injection 3 mLJump to med 3 mL, Intracatheter, EVERY 8 HOURS, First dose on Fri10/13/23 at 2200, Until Discontinued, Flush peripheral IV catheter with 3 mL of normal saline every 8 hours. And 0.9% NaCl injection 1-10 mLJump to med 1-10 mL, Intracatheter, PRN, Other, peripheral line flush, Starting on Fri10/13/23 at 1749, Until Tu10/14/23 at 0142, Flush peripheral IV catheter with 1-10 mL of normal saline before and after medications and prn to clear blood from the line or to verify patency. documented in this encounter Care Teams Microbiology Supervisor Relationship Specialty Start Date End Date Nilam Mayers MD [address] [place] [phone] PCP - General Family Medicine 09/04/23 04/18/24 documented as of this encounter
--- OUTSIDE RECORDS SUMMARY | 2024-08-31 21:31 | XMS_ITS | Encounter Summary ---
Author Organization [facility] Address [facility] [place] [address] Care Team Providers Care Backup Sawyer Name Role Phone Nilam Mayers MD Primary Care Provider [phone] Reason for Visit * Consultation (Urgent) - Closed Specialty Diagnoses / Procedures Referred By Contac t Referred To Contact Transitional Care Diagnoses IIH (idiopathic intracranial hypertension) French Novoa MD [address] [place] [address] [address] [place] [address] Referral ID Status Reason Start Date Expiration Date V isits Requested Visits Authorized [id number] Closed Specialty Services Required 10/09/2023 10/08/2024 1 1 Encounter Details Date Type Department Care Team (Late st Contact Info) Description 10/16/2023 10:30 AM ROTARY BAR OPERATOR Video Visit Transitional Care at [address] [address] Erickson Landa MD [address] [facility] [address] [facility] [place] [address] Acute myeloid leukemia in remission (HCC) ; IIH (idiopathic intracranial hypertension); SAH (subarachnoid hemorrhage) (HCC); Metabolic acidosis Social History Tobacco Use Types Packs/Day Years [...] care, and heating? Not very hard 09/06/2023 [facility] - Occupational Stress [...] this encounter Patient Instructions * Patient Instructions* Paula Lorenzo PharmD - 10/16/2023 10:23 AM ROTARY BAR OPERATOR Vaccinations Recommended: Below vaccines that are recommended based on your age and medical conditions. Please stop by your local pharmacy or ask your physician about these vaccines. COVID-19 (Pfizer or Moderna): 1 doses of Pfizer or Moderna COVID vaccine is recommended. This vaccine became newly available on May 26, 2023 to cover against the Omicron variant. Flu or influenza: Due every year Pneumococcal (Prevnar-20): You are due for Prevnar-20 Shingles Shot (Shingrix): For those over the age of 50, a 2-dose series should be given 2-6 months apart regardless of previous shingles outbreak or previously received older formulation of vaccine (Zostavax) Tetanus (Td or Tdap): Every 10 years to prevent tetanus RY BAR OPERATOR documented in this encounter Progress Notes * Paula Lorenzo PharmD - 10/16/2023 10:42 AM CST [facility] Medication Reconciliation Note: Clarified outpatient medications with patient using AVS from hospital . This medication reconciliation was completed via phone in the [facility] since the patient was unavailable for an in-person visit. Medication Concerns/Issues: None Current Updated Home Medications: Current Outpatient Medications Medication Sig acetaZOLAMIDE (Diamox) 250 MG tablet Take 2 (two) tablets by mouth 2 times daily Carboxymethylcellulose Sodium (ARTIFICIAL TEARS OP) dicyclomine (Bentyl) 20 MG tablet Take 1 (one) tablet by mouth 3 times daily as needed (cramping) (Patient not taking: Reported on 10/16/2023) famotidine (Pepcid) 20 MG tablet Take 1 (one) tablet by mouth 2 times daily levoFLOXacin (Levaquin) 500 MG tablet Take 1 (one) tablet by mouth once daily medroxyPROGESTERone (Depo-Provera) 150 MG/ML vial ondansetron, disintegrating, (Zofran ODT) 8 MG tablet Take 1 (one) tablet by mouth 2 times daily asneeded for Nausea/Vomiting Allow tablet to dissolve on the tongue (Patient not taking: Reported on 10/16/2023) posaconazole (Noxafil) 100 MG tablet Take 3 (three) tablets by mouth 2 times daily for 1 day, THEN 3 (three) tablets daily with dinner for 30 days. potassium chloride ER 10 MEQ tablet Take 2 (two) tablets by mouth once daily prochlorperazine (Compazine) 10 MG tablet Take 1 (one) tablet by mouth every 6 hours as needed for Nausea/Vomiting valACYclovir (Valtrex) 500 MG tablet Take 1 (one) tablet by mouth 2 times daily No current facility-administered medications for this visit. Medication List Updates and Changes Made: Medications deleted: none Medications added: depo provera Medications changed/adjusted: none Med Rec was Completed by: Paula Lorenzo PharmD 10/16/23 10:41 AM [facility] Vaccination Note: Sarah Mckeon is a 38 year old female who was screened for vaccination needs. The patient was provided education regarding need for: Flu, COVID (Pfizer/Moderna), Prevnar-20, Tetanus (Tdap), and Shingles vaccine (Shingrix). Patient was told that these vaccines can be obtained from local pharmacy or physician's office. Vaccine Education was Completed by: Paula Lorenzo PharmD 10/16/23 10:41 AM RY BAR OPERATOR * Cuauhtemoc Art MD - 10/16/2023 10:20 AM CST Ambulatory Discharge Telephone/Video Visit Note Today's visit was conducted virtually. The patient has given verbal consent to have today's visit conducted virtually and understands the risks, benefits and alternatives associated with telemedicine. Patient location: Home This encounter was performed using: audio and video Total time spent on visit on date of encounter is: 30 minutes with 30 minutes spent in medical discussion. Date of Service: 10/16/2023 CC: AML Assessment and Plan: #AML #Small SAH #Idiopathic intracranial hypertension Patient doing well since discharge. Requiring transfusions managed by onc. Seeing ophtho for eye pain/dryness -meds reviewed and can continue acetazolamide, Valtrex/levofloxacin/Valtrex, famotidine, zofran PRN(hasn't used), prochlorperazine PRN (used with improvement), potassium, bentyl PRN (hasn't needed to use). Has pill box -bicarb 16 and AG 10, get VBG with other labs to monitor acidosis -finished dexamethasone drops with blurred vision, taking artifical tears per ophtho -onc 10/17, can discuss vaccines PCV20, COVID, influenza, hepatitis B, tetanus with oncologist. Getting labs MWF and transfusions PRN -pt going in tomorrow with labs, add VBG -NSGY 11/18 for SAH -ophtho 11/19 Future Appointments October 10:30 AM Appointment with [facility] at [facility] at [facility] ([phone]) [address] [facility] [address] Tuesday October 17, 2023 1:30 PM Appointment with Britni Winston at [facility] ([phone]) [address] [facility] [address] Friday October 20, 2023 12:30 PM Appointment with Britni Winston; [facility] at [facility] ([phone]) [address] [facility] [address] Sunday October 22, 2023 1:30 PM Appointment with Britni Winston; [facility] at [facility] ([phone]) [address] [facility] [address] Tuesday October 24, 2023 1:30 PM Appointment with Britni Winston; [facility] at [facility] ([phone]) [address] [facility] [address] Sunday November 19, 2023 9:00 AM Appointment with [facility] [address] at [facility] ([phone]) [address] [facility] [address] Sunday November 19, 2023 9:45 AM (Arrive by 9:30 AM) Appointment with Stas Lomeli at [facility] - Neurosurgery ([phone]) [address] [facility] [address] November 8:15 AM (Arrive by 8:00 AM) Appointment with Song Hobson at [facility] - Ophthalmology ([phone]) [address] [facility] [address] Complexity of Medical Decision-Making (low/moderate/high): moderate Patient discussed with attending physician, Dr. Marie, who agrees with my assessment and plan. Refreshed smartlinks? If so, click next option Subjective: Sarah Mckeon is an 38 year old female who was evaluated via telemedicine after recent hospital admission for AML. Medical problems include: Patient Active Problem List: Acute myeloid leukemia in remission (CMS-HCC) Pancytopenia ([facility]-HCC) Tonsillitis Acute hypoxic respiratory failure (CMS-[facility]) Pulmonary edema IIH (idiopathic intracranial hypertension) Vaginal bleeding Date of Initial Inpatient Discharge: 10/09 Date(s) of Unsuccessful Post-Discharge Communication with Patient: 10/13, 10/10 Date of Nwie-qm-Drpz Visit: 10/16/2023 Manager Line used?: N (Y/N) Previous Report(s) Reviewed: none Hospital discharge summary Brief hospital course: 09/03-10/09: 38 year old??female??with no PMH who presented on 09/03 with fatigue and flu-like symptoms. 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 Hospital course also c/b leukemic infiltrates on fundoscopic exam per Ophthalmology. An MRI was obtained which showed a small SAH, for which NSGY was consulted and rec op f/u without surg intervention. Repeat Bone marrow Bx sugg ested remission of AML and cytology showed no evidence of leukemia involvement. Pt also required [employer] Cytarabine inpatient for consolidation therapy. ??Neurology was also consulted for concern for elevated ICP given CT imaging. Repeat LP for IT chemo 10/06 showing open pressure 30 ccH2O. Resumed stalin tazolamide. By 10/09 she had completed consolidation therapy. She was discharged to home with OI ppxmedications as well as PRNs. -saw ophtho 10/13 for eye discomfort- PFATs at least 6 times daily, AT [facility] OU. Continue diamox 500 BID at this time. Then went to ED for PLT transfusion -saw onc 10/14- cbc three times weekly, Valtrex, decadron eye drops, keep hgb >7 and PLT >30, Diamox 500 mg BID. Received 1 unit of PRBC Today's visit was focused on the following issues: -feeling fine after discharged. She is feeling fatigued, patient has recently moved. Menstrual bleeding, decreased with Depo and unsure of her normal menstrual period. No SOB, cough, diarrhea, vomiting. NO SIDHU. Difficulty with long distance vision, photophobia, seen by ophtho and using eye drops with improvement. -got Depo provera shot yesterday Past Medical/Surgical/Family/Social History: Reviewed and updated in [employer] History tab Medication Reconciliation:Reviewed and updated in [employer] Medications tab Current Outpatient Medications Medication Sig Dispense Refill [...] No current facility-administered medications for this visit. I reconciled the patient's medications during this visit and the above list is accurate. Allergies: Reviewed and updated in Epic Allergies Tab Review of systems: ROS negative unless otherwise specified Objective: NAD, sitting comfortably in chair Cuauhtemoc Art MD 10/16/2023 RY BAR OPERATOR Associated attestation - Erickson Landa MD - 10/17/2023 12:30 PM ROTARY BAR OPERATOR Attending Physician Attestation I saw and examined the patient with the resident, and I agree with the resident's history, physicalexam, and assessment and plan. Date of Service: 10/16/2023 Erickson Chase MD documented in this encounter Plan of Treatment Upcoming Encounters Date Type Department Care Team (Late st Contact Info) Description 10/27/2024 10:30 AM ROTARY BAR OPERATOR Appointment [facility] [address] [place] [address] Hussain Carias MD [address] [place] [id number] Britni Winston PA-C [address] [place] [address] 11/17/2024 9:00 AM ROTARY BAR OPERATOR Office Visit [facility] - Ophthalmology [address] [place] [phone] Song Hobson MD [address] [place] [address] [place] [address] documented as of this encounter Visit Diagnoses Diagnosis 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 in remission IIH (idiopathic intracranial hypertension) Benign intracranial hypertension SAH (subarachnoid hemorrhage) (HCC) Subarachnoid hemorrhage Metabolic acidosis Acidosis documented in this encounter Care Teams Backup Sawyer Relationship Specialty Start Date End Date Zaria-Gagen, Nilam, MD [address] [place] [phone] PCP - General Family Medicine 09/04/23 04/18/24 documented as of this encounter
--- OUTSIDE RECORDS SUMMARY | 2024-08-31 21:31 | XMS_ITS | Encounter Summary ---
Author Organization [facility] Address [address] [place], [place] [address] [address] Care Team Providers Care Platform Power Technician Name Role Phone Nilam Mayers MD Primary Care Provider [phone] Reason for Visit * Oncology Prior Authorization (Routine) - Authorized Specialty Diagnoses / Procedures Referred By Contac t Referred To Contact Diagnoses Vaginal bleeding Procedures MD INJ MEDROXYPROGESTERNE ACETATE 1 MG Hussain Carias MD [address] [place] [address] [facility] [address] [place] [id number] Referral ID Status Reason Start Date Expiration Date V isits Requested Visits Authorized [id number] Authorized 10/14/2023 01/13/2024 1 1 Encounter Details Date Type Department Care Team (Latest Contact Info) Description 10/14/2023 1:15 PM HUMANITIES TEACHER - 10/14/2023 11:59 PM HUMANITIES TEACHER Hospital Encounter [facility] [address] [place] [id number] Hussain Carias MD [address] [place] [address] Hematology/Oncology Discharge Disposition: Home or Self Care [...] care, and heating? Not very hard 09/06/2023 [facility] - Occupational Stress [...] Sign Reading Time Taken Comments Blood Pressure 120/70 10/14/2023 3:29 PM HUMANITIES TEACHER Pulse 105 10/14/2023 3:29 PM HUMANITIES TEACHER Temperature 36.3 ??C (97.4 ??F) 10/14/2023 3:29 PM CS T Respiratory Rate 16 10/14/2023 3:29 PM HUMANITIES TEACHER Oxygen Saturation 100% 10/14/2023 3:29 PM HUMANITIES TEACHER Inhaled Oxygen Concentration - - Weight 107.1 kg (236 lb 1.6 oz) 10/14/2023 1:26 PM HUMANITIES TEACHER Height - - Body Mass Index 43.18 10/13/2023 5:23 PM HUMANITIES TEACHER documented in this encounter Functional Status Functional [...] this encounter Discharge Instructions * Patient Instructions* Rossana Jay APRN-CNP - 10/14/2023 3:14 PM HUMANITIES TEACHER Thank you for entrusting your healthcare to the physicians and other specialists at the [facility]. [facility]emat[facility]cology Clinic: [phone] RN: Alyson Butcher or Beronica Lilly For symptom management or prescription questions during business hours (Mon-Fri 8AM-4:30PM), pleasecall the clinic front desk receptionist ([phone]) and your message will be routed to your RN. Outside of business hours, please call the hematology/oncology doctor on-call. If you have an urgent need during business hours please make sure to speak with a front desk associate so your message is routed urgently to a nurse. Hem/Onc Doctor On-Call (After hours, weekends, holidays): [phone], Dial [phone] (Grain Commodity Manager) and askfor the hematology/oncology fellow on-call and [...] room: New chest pain or difficulty breathing NITIES TEACHER documented in this encounter Medications at Time [...] as of this encounter Progress Notes * Zo Gates, DIANE - 10/14/2023 11:59 PM CST SW met with patient and significant other in the clinic. She was working up until diagnosis. 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 She does not have any STD, LTD, or FMLA benefits. She is debating on whether to apply for disability or unemployment. She has been calling her case manager through the [facility] but hasn't received a call back. SW encouraged them to look at disability and explainedhow the process works. They expressed that they knew of a lead ios developer that will fast track the application. SW offered to help with the application but they opted to complete it on their own at home. They also explained to SW that she only has 6 months of treatment and than she will be back at work so kathleen chaney unemployment would be better. Mora explained that Raheem is her only support and transportation. He works in [email or web address] by 2:30 each day. SW explained her insurance benefits and how [facility] can provide gas reimbursementor transportation and also provided them with their contact information.. They thought that maybe they could use it to get here and than Raheem can pick her up once he is off. SW also offered to work with RN coordinator to getting her to local lab draws at Dr. Martinez's office. Patient explained that she would also need rides there. [place] may be able to get her to [place] easier than [place]. SWcalled [facility]TM to ask this question but they can't answer it as they only put the trips in and than thecompanies pick them up or not. For now they decided to just come to [facility] for all labs/transfusions. SW is available if any other questions or concerns present. Zo Gates LCSW 10/15/2023 11:41 AM NITIES TEACHER * Hussain Carias MD - 10/14/2023 11:59 PM CST [facility] Hematology/Oncology Clinic Visit Note Date of visit: 10/14/2023 Patient: Sarah Mckeon Oncologist: Dr. 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 Was treated with vanc cefepime and then CTX, but had persistent pancytopenia. Bone marrow biopsy was done which showed 78% blast on the bone marrow flow cytometry and confirmed NPM1 mutation. Pt was transferred to [facility] for concern for AML. Count recovery BMBx performed at [facility] on 10/01/23 confirmed no blasts, MRD pending as of 10/13/23. SH - Lives alone with daughter (11 y old); her daughter is currently staying with her dad. No PMHx of cancers; she is adopted so FH is limited. No drugs or smoking or alcohol use. C1 7+3 Induction 09/06/23 C1 HiDAC 10/04/23 INTERIM HISTORY Pt presents in f/u C1D11 HiDAC. Presents for transfusion visit. She saw Ophthalmology for eye watering, blurred vision, and eye pain yesterday. She still has pain due to gritty sensation in eye, photophobia. She denies headache. Ptdenies double vision, headache, dizziness, or weakness. Pt also denies F/C/N/V/D/C. Pt denies pain anywhere other than her eyes. Pt had significant vaginal bleeding and shows the picture of the clot she passed this morning. Thishas been ongoing since last week. She has mild nose bleeding as well. I reviewed her medication. She is not taking medroxyprogesterone pill. PERFORMANCE STATUS: KPS 90 / ECOG 1 ONCOLOGY HISTORY: Cancer Staging No matching staging information was found for the patient. 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 ([facility]-H[facility]) 09/03/2023 Initial Diagnosis Acute leukemia of [...] No Stress: No Stress Concern Present (09/06/2023) [facility] [employer] - Occupational Stress Questionnaire [...] EXAM: Wt Readings from Last 3 Encounters: 10/14/23 107.1 kg (236 lb 1.6 oz) 10/13/23 107 kg (236 lb) 10/13/23 106.9 kg (235 lb 11.2 oz) Temp Readings from Last 3 Encounters: 10/14/23 97.4 ??F (Oral) 10/13/23 98 ??F (Oral) 10/13/23 97.5 ??F BP Readings from Last 3 Encounters: 10/14/23 120/70 10/13/23 133/86 10/13/23 139/77 Pulse Readings from Last 3 Encounters: 10/14/23 105 10/13/23 106 10/13/23 (!) 120 Physical Exam Vitals reviewed. Constitutional: General: She [...] present. Pulmonary: Effort: Pulmonary effort is normal. Abdominal: [...] Behavior normal. LABS: Recent Labs Component Name 10/14/23 1330 WBC 0.4* HGB 6.6* HCT 18.0* PLTCOUNT 37* Recent Labs Component Name 10/14/23 1330 10/13/23 2140 10/13/23 1354 10/08/23 2152 10/07/23 2031 10/06/23 2041 10/05/23 2051 10/04/23 2311 10/02/23 2132 10/01/23 2119 09/30/23200809/07/23200709/06/23 2143 09/06/23 0026 09/05/23 0909 09/04/23 0525 WBC 0.4* 0.5* 0.5* 1.7* 3.7* 2.5* 3.8* 6.4 - 4.1 4.1 - 0.6* 1.9* - 1.9* RBC 2.25* 2.27* 2.54* 2.27* 2.48* 2.43* 2.34* 2.56* - 2.36* 2.32* - 2.45* 2.46* - 2.51* HGB 6.6* 6.6* 7.5* 7.1* 7.8* 7.5* 7.2* 7.9* - 7.3* 7.1* - 7.9* 8.0* - 8.1* HCT 18.0* 17.8* 20.2* 19.8* 22.0* 21.5* 20.9* 22.9* - 21.5* 20.4* - 22.0* 22.1* - 22.6* MCV 80.0 78.4* 79.5* 87.2 88.7 88.5 89.3 89.5 - 91.1 87.9 - 89.8 89.8 - 90.0 MCH 29.3 29.1 29.5 31.3 31.5 30.9 30.8 30.9 - 30.9 30.6 - 32.2 32.5 - 32.3 MCHC 36.7* 37.1* 37.1* 35.9 35.5 34.9 34.4 34.5 - 34.0 34.8 - 35.9 36.2 - 35.8 MPV 9.8 10.3 - 10.3 10.5 10.2 10.3 10.9 - 11.4 11.0 - 11.8* 11.4 - - NEUTPCT - - - - - 88.4* 71.1 - - - - - - - - - MONOPCT - - - - - 2.4* 13.8* - - - - - - - - - EOSPCT - - - - - 0.0 0.0 - - - - - - - - - BASOPCT - - - - - 0.0 0.0 - - - - - - - - - MONO - 0.01* - - 0.04* - - 0.38 - 0.78 1.07* - 0.02* 0.02* - 0.02* EOS - - - - - - - - - 0.04 0.04 - - 0.02 - 0.02 BASO - - 0.01 - - - - - - - - - 0.01 - - 0.04 - = values in this interval not displayed. Recent Labs Component Name 10/14/23 1330 10/13/23 1354 10/08/23 2152 BUN 14 16 17 CREATININE 0.68 0.69 0.67 NA 139 140 140 POTASSIUM 3.4* 2.5* 4.2 CL 113* 111* 113* CALCIUM 9.4 9.6 9.5 PROT 6.8 7.0 6.8 ALB 3.5 3.6 3.4 TBILI 0.6 0.8 0.6 ALKPHOS 77 80 65 ALT 64* 75* 89* AST 23 24 39* ANIONGAP 10 13 11 BCR 21 23 25* OSMOLALITY 289 292 295 EGFR >90 >90 >90 Pathology Results RESULT Normal FISH Result inv(3) or t(3;3) RPN1::MECOM Fusion: not detected Deletion 5q: not detected Monosomy 7: not detected Deletion 7q: not detected t(8;21) RUNX1::YLFG0Q4 Fusion: not detected 11p15 (NUP98) Rearrangement: not detected 11q23 (KMT2A) Rearrangement: not detected inv(16) or t(16;16) CBFB::MYH11 Fusion: not detected INTERPRETATION There was no evidence of RPN1::MECOM fusion due to 3q21/3q26.2 inversion or translocation, deletion 5q31, monosomy 7, deletion 7q31, RUNX1::EIDG9V9 fusion due to translocation (8;21)(q21.3;q22), 11p15 (NUP98) [...] only. Flow Cytometry Summary Concurrent flow cytometry ([id number]) shows acute myeloid leukemia. Specimens A Bone [...] agent. Report dictated by Sivakumar Garrido DO (Manager Wind). Attending Physician: Dr. Augustine Davison Grand Jury Deputy Sheriff: Dr. Sivakumar Garrido DO (Manager Wind). The procedure was performed by the: The fws faculty assistant, and the attending radiologist was present [...] 38 year old female who transferred to [facility] on 09/03/2023 for suspected AML. Patient started 7 + 3 (cytarabine and idarubicin) on 09/06/2023. Now receiving HiDAC consolidation due to concern for ALBERENE STONE SETTER involvement. 1. 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 Count recovery marrow from 10/01/2023 shows CR, MRD flow negative, and NPM1 is negative by PCR. She is in molecular remission from AML standpoint. Plan is to complete 4 cycles of HiDAC consolidation. No more IT treatment planned. Eye symptoms are more likely retinal hemorrhage than leukemic infiltration. If this is leukemic retinal infiltration, HiDAC should suffice. I reviewed the literature andrecommendation is systemic chemo for leukemic retinal infiltration. 2. Neutropenic fever, resolved - T-max of 101.1?? F on 09/22. No fever since 09/22. - Infectious workup, incluing LP, RPP, and blood cx, was negative. 3. Acute respiratory failure with hypoxia, resolved - Occurred [...] for PE and setting of pt'sprofound thrombocytopenia. 3. Yya-anrqf-tas metabolic acidosis -Likely 2/2 Diamox, follow 4 Transaminitis -Mild, CTM 5. Vaginal bleeding - Patient experiencing lower abdominal cramping consistent with her menstrual cramps - Reports vaginal bleeding ~1 pad/day - Medroxyprogesterone pill discontinued 2/2 concern for IIH. Confirmed with patient that she is nottaking it. - Keep platelets >30K - s/p Depo shot 10/14. 6. 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 - Vast improvement of creamy infiltrates of the retina in both eyes since initial exam. - Unclear etiology - Keep platelets >30K Current ophthalmology recs: - Start PFATs at least 6 times daily, AT [facility] QHS OU - Continue diamox 500 BID at this time - F/u with Dr. Hobson TBD Saw Ophthalmology 10/13. 7. Elevated ICP - Noted while admitted to [...] this time - F/u with Dr. Hobson diamox #Small volume SAH in right central sulcus - Per CT 10/01/23 - NSGY will f/u with pt in clinic w/ Dr. Lomeli in ~late October or early November 2023 w/ CT non con for imaging. - Keep plts >30K at this time. PLAN: - CBC 3 times a week. - Labs reviewed. - Replete electrolyte PRN. IV or PO as needed - S/p Depo shot 10/14 - continue Diamox 500 mg BID, monitor metabolic acidosis - Continue Valtrex for OI ppx and now on Decadron eye drops for conjunctivitis ppx while on high-dose cytarabine - Transfusion parameters: (Leukoreduced and irradiated blood products)pRBC to keep Hgb >7 if hemodynamically stable and no bleeding. PLT transfusion to keep PLT >30K at this time due to (small)SAH and no upcoming NSGY intervention planned. Patient has active vaginal bleeding - Pt reports significant concerns with financial burden in light of her new AML diagnosis and the frequent visits / transportation costs. She met with home health care social worker today for ride to clinic. Her local clinic is 30 min away and we are 55 min away. She prefers to come here at this time for the followup. The above noted plan was discussed in detail with the patient, and I answered her questions to the best of my ability. The patient is aware that she can call the office should she have any additionalquestions. Hussain Carias MD, MS associate professor of chemistryballistics professor Division of Hematology, Oncology, BMT & Cellular therapies [facility] NITIES TEACHER documented in this encounter Miscellaneous Notes * Addendum Note - Shandra Santiago - 10/14/2023 11:59 PM CSTEncounter addended by: Shandra Santiago on: 10/20/2023 8:25 AM Actions taken: Charge Capture section accepted NITIES TEACHER documented in this encounter Plan of Treatment Upcoming Encounters Date Type Department Care Team (Late st Contact Info) Description 10/27/2024 10:30 AM HUMANITIES TEACHER Appointment [facility] [address] [place] [address] Hussain Carias MD [address] [place] [phone] Britni Winston PA-C [address] [place] [address] 11/17/2024 9:00 AM HUMANITIES TEACHER Office Visit [facility] - Ophthalmology [address] [place] [phone] Song Hobson MD [address] [place] [address] [place] [address] documented as of this encounter Procedures Procedure Name Priority Date/Time Associated Diagnosis Comments HCG URINE QUALITATIVE STAT 10/14/2023 2:52 PM HUMANITIES TEACHER Vaginal bleeding TRANSFUSE RED BLOOD CELL LEUKOREDUCED UNIT(S) Routine 10/14/2023 1:57 PM HUMANITIES TEACHER PREPARE RBC LEUKOREDUCED UNIT Routine 10/14/2023 1:48 PM HUMANITIES TEACHER URIC ACID BLOOD Routine 10/14/2023 1:30 PM HUMANITIES TEACHER Acute myeloid leukemia in remission (HCC) Pancytopenia (HCC) CBC W AUTO DIFFERENTIAL STAT 10/14/2023 1:30 PM HUMANITIES TEACHER Acute myeloid leukemia in remission (HCC) Pancytopenia (HCC) COMPREHENSIVE METABOLIC PANEL STAT 10/14/2023 1:30 PM HUMANITIES TEACHER Acute myeloid leukemia in remission (HCC) Pancytopenia (HCC) PHOSPHORUS BLOOD STAT 10/14/2023 1:30 PM HUMANITIES TEACHER Acute myeloid leukemia in remission (HCC) Pancytopenia (HCC) MAGNESIUM BLOOD STAT 10/14/2023 1:30 PM HUMANITIES TEACHER Acute myeloid leukemia in remission (HCC) Pancytopenia (HCC) LDH BLOOD Routine 10/14/2023 1:30 PM HUMANITIES TEACHER Acute myeloid leukemia in remission (HCC) Pancytopenia (HCC) documented in this encounter Results * TRANSFUSE RED BLOOD CELL LEUKOREDUCED UNIT(S) (10/14/2023 3:30 PM HUMANITIES TEACHER) Rossana Lama FINGER WAVER-LOG HANDLER NURSING - BLOOD PROD TRANSFUSION * TRANSFUSE RED BLOOD CELL LEUKOREDUCED UNIT(S), 1 Units (10/14/2023 3:30 PM HUMANITIES TEACHER) Rossana Lama FINGER WAVER-LOG HANDLER NURSING - BLOOD PROD TRANSFUSION * HCG URINE QUALITATIVE (10/14/2023 2:52 PM HUMANITIES TEACHER) Test Urine Negative Negative 10/14/2023 4:16 PM HUMANITIES TEACHER [facility] Urine URINE / Unknown Collection / Unknown 10/14/2023 2:52 PM HUMANITIES TEACHER 10/14/2023 2:59 PM HUMANITIES TEACHER Hussain Carias MD LAB - URINALYSIS ORD ERABLES [facility] [address] [place] [address], [facility] [phone] * PREPARE (CROSSMATCH) RBC UNIT(S), 1 Units (10/14/2023 1:48 PM HUMANITIES TEACHER) Pathologist [facility] Unit Description AS1 LR PRBC IRR [facility] Unit ABO O [facility] Unit Rh POS [facility] Product Number R04 [facility] Unit Donor # [id number] [facility] Unit Status transfused [facility] Product Code [id number] [facility] Blood Type Barcode 5100 [facility] Expiration Date [id number] [facility] Blood Bank BLOOD SPECIMEN / Unknown 10/13/2023 2:03 PM HUMANITIES TEACHER Rossana Jay APRN-LOG HANDLER LAB - BLOOD BANK ORD ERABLES Performing Organization Address City/[facility]/ZIP Co de Phone Number [facility] [address] [place] [address], [facility] [phone] * LDH BLOOD (10/14/2023 1:30 PM HUMANITIES TEACHER) [facility] LDH Total 186 125 - 243 Units/L 10/14/2023 2:09 PM HUMANITIES TEACHER [facility] Blood BLOOD SPECIMEN / Unknown Venipuncture / Unknown 10/14/2023 1:30 PM HUMANITIES TEACHER 10/14/2023 1:43 PM HUMANITIES TEACHER Rossana Jay APRN-LOG HANDLER LAB - CHEMISTRY ORDE RABLES [address] [address], [place] [phone] * URIC ACID BLOOD (10/14/2023 1:30 PM HUMANITIES TEACHER) [facility] Uric Acid 3.8 2.6 - 6.0 mg/dL 10/14/2023 2:09 PM HUMANITIES TEACHER [facility] Blood BLOOD SPECIMEN / Unknown Venipuncture / Unknown 10/14/2023 1:30 PM HUMANITIES TEACHER 10/14/2023 1:43 PM HUMANITIES TEACHER Rossana Jay APRN-LOG HANDLER LAB - CHEMISTRY ORDE RABQI [facility] [address] [place] [address], [facility] [phone] * (ABNORMAL) CBC WITH DIFFERENTIAL (10/14/2023 1:30 PM HUMANITIES TEACHER) WBC 0.4(LL) 4.0 - 10.7 x10E9/L 10/14/2023 2:45 PM [facility] RBC Count 2.25(L) 3.90 - 5.20 x10E12/L 10/14/2023 2:45 PM [facility] Hemoglobin 6.6(L) 11.9 - 15.8 g/dL 10/14/2023 2:45 PM [facility] Hematocrit 18.0(L) 34.8 - 46.1 % 10/14/2023 2:45 PM [facility] MCV 80.0 80.0 - 98.0 fL 10/14/2023 2:45 PM [facility] MCH 29.3 26.7 - 33.6 pg 10/14/2023 2:45 PM [facility] MCHC 36.7(H) 31.7 - 36.3 g/dL 10/14/2023 2:45 PM [facility] RDW-CV 12.6 11.3 - 14.8 % 10/14/2023 2:45 PM [facility] Platelet Count 37(L) 150 - 420 x10E9/L 10/14/2023 2:45 PM [facility] MPV 9.8 7.8 - 11.4 fL 10/14/2023 2:45 PM [facility] Blood BLOOD SPECIMEN / Unknown Venipuncture / Unknown 10/14/2023 1:30 PM HUMANITIES TEACHER 10/14/2023 1:43 PM HUMANITIES TEACHER Rossana Jay APRN-LOG HANDLER LAB - HEMATOLOGY ORD ERABLES [facility] [address] [place] [address], [facility] [phone] * (ABNORMAL) COMPREHENSIVE METABOLIC PANEL (10/14/2023 1:30 PM [facility]) BUN 14 7 - 26 mg/dL 10/14/2023 2:09 PM [facility] Creatinine 0.68 0.56 - 0.96 mg/dL 10/14/2023 2:09 PM [facility] Sodium 139 136 - 145 mmol/L 10/14/2023 2:09 PM [facility] Potassium 3.4(L) 3.5 - 4.5 mmol/L 10/14/2023 2:09 PM [facility] Chloride 113(H) 98 - 107 mmol/L 10/14/2023 2:09 PM [facility] CO2 16(L) 22 - 29 mmol/L 10/14/2023 2:09 PM [facility] Glucose 109 70 - 115 mg/dL 10/14/2023 2:09 PM [facility] Calcium 9.4 8.4 - 10.2 mg/dL 10/14/2023 2:09 PM [facility] Protein Total 6.8 6.0 - 8.3 g/dL 10/14/2023 2:09 PM [facility] Albumin 3.5 3.4 - 5.0 g/dL 10/14/2023 2:09 PM [facility] Bilirubin Total 0.6 0.2 - 1.2 mg/dL 10/14/2023 2:09 PM [facility] Alkaline Phosphatase 77 40 - 150 U/L 10/14/2023 2:09 PM [facility] ALT 64(H) 5 - 55 U/L 10/14/2023 2:09 PM [facility] AST 23 5 - 34 U/L 10/14/2023 2:09 PM [facility] Anion Gap 10 6 - 16 10/14/2023 2:09 PM [facility] BUN/Creatinine Ratio 21 7 - 23 10/14/2023 2:09 PM [facility] Osmolality Calculated 289 275 - 295 mOsm/kg 10/14/2023 2:09 PM [facility] Albumin/Globulin Ratio 1.1 1.1 - 2.3 10/14/2023 2:09 PM HUMANITIES TEACHER [facility] eGFR by CKD-EPI >90 >=90 mL/min/1.7 3 m2 10/14/2023 2:09 PM HUMANITIES TEACHER [facility] Blood BLOOD SPECIMEN / Unknown Venipuncture / Unknown 10/14/2023 1:30 PM HUMANITIES TEACHER 10/14/2023 1:43 PM HUMANITIES TEACHER Rossana Felicianocarol [facility] - CHEMISTRY ORDE [facility] [address] [address], [place] [phone] * MAGNESIUM BLOOD (10/14/2023 1:30 PM HUMANITIES TEACHER) Magnesium 1.7 1.6 - 2.6 mg/dL 10/14/2023 2:09 PM HUMANITIES TEACHER [facility] Blood BLOOD SPECIMEN / Unknown Venipuncture / Unknown 10/14/2023 1:30 PM HUMANITIES TEACHER 10/14/2023 1:43 PM HUMANITIES TEACHER Rossana Felicianocarol [facility] - CHEMISTRY ORDE [employer] Performing Organization Address [facility]/ZIP Co de Phone Number [address] [address], [place] [phone] * PHOSPHORUS BLOOD (10/14/2023 1:30 PM HUMANITIES TEACHER) Phosphorus 3.2 2.9 - 5.1 mg/dL 10/14/2023 2:09 PM HUMANITIES TEACHER [facility] Blood BLOOD SPECIMEN / Unknown Venipuncture / Unknown 10/14/2023 1:30 PM HUMANITIES TEACHER 10/14/2023 1:43 PM HUMANITIES TEACHER Rossana Jay [facility] LAB - CHEMISTRY ORDE ELYSIA Performing Organization Address City/[facility]/ZIP Co de Phone Number [address] [address], [place] [phone] documented in this encounter Visit Diagnoses Diagnosis 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 in remission Vaginal bleeding Other specified noninflammatory disorder of vagina Pancytopenia (HCC) documented in this encounter Administered Medications Inactive Administered Medications - up to 3 most recent administrations Medication Order MAR Action Action Date Dose Rate Site medroxyPROGESTERone (Depo-Provera) injection 150 mg 150 mg, Intramuscular, ONCE, 1 dose, On Fri10/14/23 at 1500, Shake well before using., Restricted to Hematology/Oncology providers. Is medication being prescribed by Software Development Intern or Oncologist? Yes $ Given 10/14/2023 2:52 PM HUMANITIES TEACHER 150 mg Right Arm potassium chloride ER (Klor-Con M) tablet 40 mEq 40 mEq, Oral, ONCE, 1 dose, On Fri10/14/23 at 1445, Do not crush or chew. $ Given 10/14/2023 2:52 PM HUMANITIES TEACHER 40 mEq documented in this encounter Care Teams Platform Power Technician Relationship Specialty Start Date End Date Nilam Mayers MD [address] [place] [phone] PCP - General Family Medicine 09/04/23 04/18/24 documented as of this encounter
--- OUTSIDE RECORDS SUMMARY | 2024-08-31 21:31 | XMS_ITS | Encounter Summary ---
Author Organization [facility] Health Address [address] [place], [place] [address] [address] Care Team Providers Care Cloth Spreader Name Role Phone Nilam Mayers MD Primary Care Provider +1- [phone] Reason for Visit * Reason Onset Date Comments Medication Request 10/14/2023 Encounter Details Date Type Department Care Team (Late st Contact Info) Description 10/14/2023 Telephone [facility] [address] [place] [address] Lory Cazares, aluminum molding machine operator Request Social History Tobacco Use Types Packs/Day Years [...] and heating? Not hard at all 12/30/2023 [facility] [place] of Occupat ional Health - Occupational Stress [...] or slept in a chcf (including now)? Yes 12/30/2023 Sex and Gender [...] encounter Miscellaneous Notes * Telephone Encounter - Ru Macedo APRN-NURSE SANE - 01/17/2024 11:36 AM CDT Mora called the BMT clinic with continued complaint of pain to her rectal area. She was recently evaluated for this on 01/15. Continues to deny fever chills or other signs of infection. Was able to picking crew supervisor and start antibiotics yesterday, but did not receive pain med as prescribed. This ABEL called [facility] pharmacy and script for oxycodone 5mg did not go through per pharmacy staff. Script was then sentagain. This ABEL then called back pharmacy and confirmed receipt of script, and then notified Mora of this. Instructed Mora to call the clinic if she develops constitutional signs or symptoms of infection. Mora verbalized understanding. Ru Macedo APRN, STEAM TRAP MAN-C [facility] Blood & Marrow Transplant documented in this encounter Plan of Treatment Upcoming Encounters Date Type Department Care Team (Late st Contact Info) Description 10/27/2024 10:30 AM DOMESTIC TECHNICIAN Appointment [facility] [address] [place], [place] [phone] Hussain Carias MD [address] [place] [phone] Britni Wintson, PA-C [address] [place] [phone] 11/17/2024 9:00 AM DOMESTIC TECHNICIAN Office Visit [facility] - Ophthalmology [address] [place] [phone] Song Hobson MD [address] [place] [address] [place] [phone] documented as of this encounter Visit Diagnoses Not on filedocumented in this encounter Additional Health Concerns Infection Onset Date Last Indicated Resolved Time COVID-19 Under Investigation 11/10/2023 11/10/2023 11/10/2023 6:57 PM DOMESTIC TECHNICIAN COVID-19 Under Investigation 12/19/2023 12/19/2023 12/19/2023 3:31 PM CDT documented as of this encounter Care Teams Cloth Spreader Relationship Specialty Start Date End Date Nilam Mayers MD [address] [place] [phone] PCP - General Family Medicine 09/04/23 04/18/24 documented as of this encounter
--- OUTSIDE RECORDS SUMMARY | 2024-08-31 21:31 | XMS_ITS | Encounter Summary ---
Author Organization [facility] Health Address [address] [place], [place] [address] [address] Care Team Providers Care Telecommunications Network Planner Name Role Phone Nilam Mayers MD Primary Care Provider +1- [phone] Reason for Visit * Reason Onset Date Comments Eye Problem 10/13/2023 Encounter Details Date Type Department Care Team (Late st Contact Info) Description 10/13/2023 Telephone [facility] - Ophthalmology [address] [place] [address] Shannan Woods MD [address] [facility] [place] [address] Eye Problem Social History Tobacco Use Types Packs/Day Years [...] care, and heating? Not very hard 09/06/2023 [facility] [place] of Occupat ional Health - Occupational [...] slept in a retirement (including now)? No 09/06/2023 Sex and Gender [...] encounter Miscellaneous Notes * Telephone Encounter - Shannan Woods MD - 10/13/2023 9:46 AM CONCRETE PAVEMENT INSTALLER Patient Phone Call Summary Received message about Sarah Mckeon, a 38 year old female regarding eye pain. Called back. Finished her decadron eye drops from her oncologist on Friday. Afterwards she began has been having pain in both of her eyes. Says she feels like she can't open her eyes until she cries. Has FBS that comesand goes. Has lots of tearing but denies mucous or purulent discharge. Floaters have remained the same, says she sees occasionally sees FOL but those have not changed either. Denies any eye trauma orinjury. Patient has appointment with us in two days but states she has no transportation to clinic that day. Is coming to [facility] later this afternoon for BMT. Plan: - Will schedule appointment with [facility] today 10/13/22 at 2:45PM after her BMT appointmnet - Pt made aware of up to a couple of hours of wait time on urgent care clinic - Recommended presentation to ED if unable to come to clinic this afternoon Shannan Woods MD Ophthalmology 10/13/2023 9:46 AM RETE PAVEMENT INSTALLER documented in this encounter Plan of Treatment Upcoming Encounters Date Type Department Care Team (Late st Contact Info) Description 10/27/2024 10:30 AM CONCRETE PAVEMENT INSTALLER Appointment [facility] BMT CLINIC [address] [place] [address] Hussain Carias MD [address] [place] [phone] Britni Winston PA-C [address] [place] [address] 11/17/2024 9:00 AM CONCRETE PAVEMENT INSTALLER Office Visit [facility] - Ophthalmology [address] [place] [phone] Song Hobson MD [address] [place] [address] [place] [phone] documented as of this encounter Visit Diagnoses Not on filedocumented in this encounter Care Teams Telecommunications Network Planner Relationship Specialty Start Date End Date Nilam Mayers MD [address] [place] [phone] PCP - General Family Medicine 09/04/23 04/18/24 documented as of this encounter
--- OUTSIDE RECORDS SUMMARY | 2024-08-31 21:31 | XMS_ITS | Encounter Summary ---
Author Organization [facility] Health Address [address] [place], [place] [address] [address] Care Team Providers Care Pack Worker Name Role Phone Nilam Mayers MD Primary Care Provider +1- [phone] Reason for Visit * Reason Onset Date Comments Abnormal Lab 10/13/2023 Encounter Details Date Type Department Care Team (Late st Contact Info) Description 10/13/2023 Telephone [facility] - Hematology/Oncology [address] [place] [address] Yoly Steward, BRICKLAYER [facility] [address] [facility] OF HEMATOLOGY [place] [address] Abnormal Lab Social History Tobacco Use Types Packs/Day Years [...] care, and heating? Not very hard 09/06/2023 [facility] [place] of Occupat ional Health - Occupational Stress [...] st Contact Info) Description 10/27/2024 10:30 AM CORRESPONDENT Appointment [facility] B[facility] CLINIC [address] [place] [address] Hussain Carias MD [address] [place] [phone] Britni Winston PABaronC [address] [place], [place] [phone] 11/17/2024 9:00 AM CORRESPONDENT Office Visit [facility] Physician Group - Ophthalmology [address] [place] [phone] Song Hobson MD [address] [place] [address] [place] [phone] documented as of this encounter Visit Diagnoses Not on filedocumented in this encounter Care Teams Pack Worker Relationship Specialty Start Date End Date Nilam Mayers MD [address] [place] [phone] PCP - General Family Medicine 09/04/23 04/18/24 documented as of this encounter
--- OUTSIDE RECORDS SUMMARY | 2024-08-31 21:31 | XMS_ITS | Encounter Summary ---
Author Organization [facility] Health Address [address] [place], [place] [address] [address] Care Team Providers Care Assault Amphibious Vehicle Crewman Name Role Phone Nilam Mayers MD Primary Care Provider +1- [phone] Reason for Visit * Reason Onset Date Comments Results 10/13/2023 Encounter Details Date Type Department Care Team (Late st Contact Info) Description 10/13/2023 Telephone [facility] - Hematology/Oncology [address] [place] [address] Yoly Steward, SALES MERCHANDISING [facility] [address] [facility] OF HEMATOLOGY & MEDICAL ONCOLOGY [place], [place] [phone] Results Social History Tobacco Use Types Packs/Day Years [...] care, and heating? Not very hard 09/06/2023 [facility] [place] of Occupat ional Health - Occupational Stress [...] encounter Miscellaneous Notes * Telephone Encounter - Yoly Steward APRN-ORGANIZATIONAL RESEARCH CONSULTANT - 10/13/2023 7:48 PM BEAM WORKER Received a call from ED (Stu) regarding Ms. Mckeon who presented to the ED for platelets. They wanted to know if we typically got a post platelet count when we did platelets. I told them we always do. In reviewing the chart and speaking to Britni CHANDLER and Dr. Carias, it was decided that the goal for her post count would be 30K related to a remote SAH (small) and some ocular bleeding she had in the past. I relayed that message to the ED and asked that they get a repeat potassium level when they got the post platelet count. She has a prescription waiting for her at her local [facility]. Patient will return to clinic on Fri. Someone will call her tomorrow to check in on her and assure she knows when her appointment is. Yoly Steward APRN [facility] Blood and Marrow Transplant Program WORKER documented in this encounter Plan of Treatment Upcoming Encounters Date Type Department Care Team (Late st Contact Info) Description 10/27/2024 10:30 AM BEAM WORKER Appointment [facility] BMT CLINIC [address] [place] [address] Hussain Carias MD [address] [place] [phone] Britni Winston PA-C [address] [place] [address] 11/17/2024 9:00 AM BEAM WORKER Office Visit [facility] Physician Group - Ophthalmology [address] [place] [phone] Song Hobson MD [address] [place] [address] [place] [address] documented as of this encounter Visit Diagnoses Not on filedocumented in this encounter Care Teams Assault Amphibious Vehicle Crewman Relationship Specialty Start Date End Date Nilam Mayers MD [facility] [place] [phone] PCP - General Family Medicine 09/04/23 04/18/24 documented as of this encounter
--- OUTSIDE RECORDS SUMMARY | 2024-08-31 21:31 | XMS_ITS | Encounter Summary ---
Author Organization [facility] Address [facility] [place] [address] Care Team Providers Care Load Mixer Name Role Phone Nilam Mayers MD Primary Care Provider +1- [phone] Reason for Visit * Reason Comments Transitional Care Encounter Details Date Type Department Care Team (Late st Contact Info) Description 10/10/2023 Transitional Care Transitional Care at [address] [address] Lupe Waldron, ip attorney Social History Tobacco Use Types Packs/Day Years [...] care, and heating? Not very hard 09/06/2023 [facility] [place] of Occupat ional Health - Occupational Stress [...] Telephone Encounter - Lupe Waldron RN - 10/10/2023 10:53 AM CST RN 48 hour post discharge follow-up contact by telephone: Patient with recent IP discharge from [facility] on 10/09/23. RN attempted to reach Sarah Mckeon today by telephone ([phone]) to complete 48 hour post discharge follow-up contact. RN was unable to reach Sarah at this time and this RN left voice message, encouraging patient to call this designer writer back when available to provide update since last follow-up contact. RN will await call back from and will continue to follow Patient for [facility] clinic appointment. [facility] appt details are on AVS/MyChart. Call Duration: 1 min Lupe Waldron RN, BSN Knitting Machine Fixer Head, [facility] Office: [phone] 10/10/2023 PATCHER documented in this encounter Plan of Treatment Upcoming Encounters Date Type Department Care Team (Late st Contact Info) Description 10/27/2024 10:[address] Appointment [facility] B[facility] CLINIC [address] [place] [address] Hussain Carias MD [address] [place] [phone] Britni Winston, PA-C [address] [place] [address] 11/17/2024 9:[address] Office Visit [facility] Physician Group - Ophthalmology [address] [place] [phone] Song Hobson MD [address] [place] [address] [place] [phone] documented as of this encounter Visit Diagnoses Not on filedocumented in this encounter Care Teams Load Mixer Relationship Specialty Start Date End Date Zaria-Nilam Johnson MD [address] [place] [phone] PCP - General Family Medicine 09/04/23 04/18/24 documented as of this encounter
--- OUTSIDE RECORDS SUMMARY | 2024-08-31 21:31 | XMS_ITS | Encounter Summary ---
Author Organization [facility] Health Address [facility] [place] [address] Care Team Providers Care Dredge Pipe Operator Name Role Phone Nilam Mayers MD Primary Care Provider +1- [phone] Encounter Details Date Type Department Care Team (Latest Contact Info) Description 10/15/2023 Travel Social History Tobacco Use Types Packs/Day [...] care, and heating? Not very hard 09/06/2023 [facility] [place] of Occupat ional Health - Occupational Stress [...] in a skilled nursing (including now)? No 09/06/2023 Sex and Gender [...] st Contact Info) Description 10/27/2024 10:30 AM CENTER MACHINE OPERATOR Appointment [facility] B[facility] CLINIC [address] [place] [address] Hussain Carias MD [address] [place] [phone] Britni Winston, PABaronC [address] [place] [address] 11/17/2024 9:00 AM CENTER MACHINE OPERATOR Office Visit [facility] Physician Group - Ophthalmology [address] [place] [phone] Song Hobson MD [address] [place] [address] [place] [phone] documented as of this encounter Visit Diagnoses Not on filedocumented in this encounter Care Teams Dredge Pipe Operator Relationship Specialty Start Date End Date Nilam Mayers MD [address] [place] [phone] PCP - General Family Medicine 09/04/23 04/18/24 documented as of this encounter
--- OUTSIDE RECORDS SUMMARY | 2024-08-31 21:31 | XMS_ITS | Encounter Summary ---
Author Organization [facility] Address [facility] [place] [address] Care Team Providers Care Hand Spring Repairer Name Role Phone Nilam Mayers MD Primary Care Provider +1- [phone] Reason for Visit * Reason Onset Date Comments Reminder Call 10/15/2023 Encounter Details Date Type Department Care Team (Late st Contact Info) Description 10/15/2023 Telephone Transitional Care at [address] [address] Jessica Parikh, MA Reminder Call Social History Tobacco Use Types Packs/Day [...] care, and heating? Not very hard 09/06/2023 [facility] [place] of Occupat ional Health - Occupational Stress [...] [place] [facility] (including now)? No 09/06/2023 Sex and Gender [...] encounter Miscellaneous Notes * Telephone Encounter - Jessica Parikh MA - 10/15/2023 9:07 AM REGIONAL TANKER TRUCK DRIVER Called patient to confirm [facility] appointment on 10/16/23 at 10:30. Patient needed to change tovirtual as does nto have a way to get here. Confirmed appointment date and time and went over parking instructions with patient and advised to bring medication bottles to appointment. ONAL TANKER TRUCK DRIVER documented in this encounter Plan of Treatment Upcoming Encounters Date Type Department Care Team (Late st Contact Info) Description 10/27/2024 10:30 AM REGIONAL TANKER TRUCK DRIVER Appointment [facility] BMT CLINIC [address] [place] [address] Hussain Carias MD [address] [place] [phone] Britni Winston PA-C [facility]1 [place], [place] [phone] 11/17/2024 9:00 AM REGIONAL TANKER TRUCK DRIVER Office Visit [facility] Physician Group - Ophthalmology [address] [place] [phone] Song Hobson MD [address] [place] [address] [place] [phone] documented as of this encounter Visit Diagnoses Not on filedocumented in this encounter Care Teams Hand Spring Repairer Relationship Specialty Start Date End Date Nilam Mayers MD [address] [place] [phone] PCP - General Family Medicine 09/04/23 04/18/24 documented as of this encounter
--- OUTSIDE RECORDS SUMMARY | 2024-08-31 21:31 | XMS_ITS | Encounter Summary ---
Author Organization [facility] Address [address] [place] [address] Care Team Providers Care Plant Engineering Manager Name Role Phone Nilam Mayers MD Primary Care Provider [phone] Encounter Details Date Type Department Care Team (Latest Contact Info) Description 10/17/2023 1:25 PM SCREW REMOVER - 10/17/2023 11:59 PM [facility] Hospital Encounter [facility] [address] [place] [address] Hussain Carias MD [address] [place] [address] Britni Winston, PABaronC [address] [place] [address] Discharge Disposition: Home or Self [...] care, and heating? Not very hard 09/06/2023 [facility] [employer] - Occupational Stress [...] Sign Reading Time Taken Comments Blood Pressure 123/72 10/17/2023 3:50 PM SCREW REMOVER Pulse 97 10/17/2023 3:50 PM SCREW REMOVER Temperature 36.4 ??C (97.5 ??F) 10/17/2023 3:50 PM CS T Respiratory Rate 18 10/17/2023 3:50 PM SCREW REMOVER Oxygen Saturation 100% 10/17/2023 3:50 PM SCREW REMOVER Inhaled Oxygen Concentration - - Weight 107.9 kg (237 lb 14.4 oz) 10/17/2023 1:44 PM SCREW REMOVER Height - - Body Mass Index 43.51 10/13/2023 5:23 PM SCREW REMOVER documented in this encounter Functional Status Functional [...] * Patient Instructions* Britni Winston PA-C - 10/17/2023 3:56 PM SCREW REMOVER Thank you for entrusting your healthcare to the physicians and other specialists at the [facility] Hematology & Oncology [facility]. [facility] Hematology/Oncology Clinic: [phone] RN: Alyson Butcher or Beronica Lilly For symptom management or prescription questions during business hours (Mon-Fri 8AM-4:30PM), pleasecall the clinic front edger ([phone]) and your message will be routed to your RN. Outside of business hours, please call the hematology/oncology doctor on-call. If you have an urgent need during business hours please make sure to speak with a assistant front end manager so your message is routed urgently to a nurse. Hem/Onc Doctor On-Call (After hours, weekends, holidays): [phone], Dial [phone] (Casting Repairer) and askfor the hematology/oncology fellow on-call and [...] room: New chest pain or difficulty breathing W REMOVER documented in this encounter Medications at Time [...] as of this encounter Progress Notes * Gertrudis Jnoes PharmD - 10/17/2023 2:35 PM CST Medication History Met with Sarah and her boyfriend (Roderick) to review medications and schedule. She denies use of anyvitamins, herbals, topicals, or medications prescribed by other providers. She asked about medroxyprogesterone received from outpatient pharmacy today, after receiving this medication in the clinic on 10/15/23, in the clinic. Explained outpatient prescription would be given on next administration (due 11/13/23 or 11/14/23). Reviewed how to store the medication. Current Medications: ValACYclovir 500 mg PO BID Posaconazole 300 mg (Delayed Release) PO Daily w/Dinner LevoFLOXacin 500 mg PO Daily Famotidine 20 mg PO BID AcetaZOLAMIDE 250 mg PO BID Potassium chloride 20 mEq (Extended Release) PO Daily Artifical Tears Eye Drops; 2 drops in the affected eye(s) 6 times every day. Medroxyprogesterone 150 mg/mL Injection, Administer monthly as directed by physician. Ondansetron 8 mg PO BID PRN N/V Prochlorperazine 10 mg PO TID PRN N/V Dicyclomine 20 mg PO TID PRN GI symptoms Please contact pharmacy ([phone]) with any questions. Thank you. W REMOVER * Becky Quiroz RPhT - 10/17/2023 10:50 AM CST MEDICATION TO BEDSIDE DELIVERY: COMPLETE Medication to Bedside delivery was completed for Sarah Mike. ??? A total of 1 prescriptions were delivered to the patient for discharge. ??? Medications were given to NURSE (RAMONA) ??? This delivery included a controlled substance: NO ??? This delivery included medication that should be stored in the fridge: NO Thank you for allowing the outpatient pharmacy to participate in the care of Sarah Mcekon. If you have any questions, please contact the outpatient pharmacy at [phone]. Becky Quiroz [facility] at [facility] [address] [place], [place] [address] Hours of Operation Friday - Friday: 8:00am to 6:00pm Friday: 9:00am to 1:00pm Epic: [facility] *Ensure the patient and clinic's nearby ZIP codes box is unchecked* * Britni Winston PA-C - 10/17/2023 7:19 AM CST [facility] Hematology/Oncology Clinic Visit Note Date of visit: 10/17/2023 Patient: Sarah Mckeon Oncologist: Dr. 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 Was treated with vanc cefepime and then CTX, but had persistent pancytopenia. Bone marrow biopsy was done which showed 78% blast on the bone marrow flow cytometry and confirmed NPM1 mutation. Pt was transferred to [facility] for concern for AML. Count recovery BMBx performed at [facility] on 10/01/23 confirmed no blasts, MRD pending as of 10/13/23. SH - Lives alone with daughter (11 y old); her daughter is currently staying with her dad. No PMHx of cancers; she is adopted so FH is limited. No drugs or smoking or alcohol use. C1 7+3 Induction 09/06/23 C1 HiDAC 10/04/23 INTERIM HISTORY Reports feeling well today. Vaginal bleeding has almost stopped. Using no pads per day. Reports she had some mild gum bleeding with brushing her teeth this AM; it is now stopped. Reports eye pain and blurred vision has completely resolved. Continues to report mild eye tearing intermittently throughout the day, which are improved with artificial tears. Denies F/C/N/V/D/C. Denies pain anywhere. Denies CP, SOB. VSS PERFORMANCE STATUS: KPS 90 / ECOG 1 ONCOLOGY HISTORY: Cancer Staging No matching staging information was found for the patient. Oncology History Acute myeloid leukemia in remission ([facility]) 09/03/2023 Initial Diagnosis 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 ([facility]) 09/06/2023 - Chemotherapy cytarabine (Cytosar) 460 mg [...] No Stress: No Stress Concern Present (09/06/2023) [employer] [facility] [employer] - Occupational Stress Questionnaire [...] rash. Neurological: Negative for dizziness and headaches. Endo/Heme/Allergies: Bruises/bleeds easily. PHYSICAL EXAM: Wt Readings from Last 3 [...] 2041 10/05/23 2051 10/04/23 2311 10/02/23 2132 10/01/[id number]/30/[id number]/07/23200709/06/23 2143 09/06/23 0026 09/05/23 0909 09/04/23 0525 [...] not detected Deletion 7q: not detected t(8;21) RUNX1::[id number] Fusion: not detected 11p15 (NUP98) Rearrangement: not detected 11q23 (KMT2A) Rearrangement: not detected inv(16) or t(16;16) CBFB::MYH11 Fusion: not detected INTERPRETATION There was no evidence of RPN1::MECOM fusion due to 3q21/3q26.2 inversion or translocation, deletion 5q31, monosomy 7, deletion 7q31, RUNX1::[id number] fusion due to translocation (8;21)(q21.3;q22), 11p15 (NUP98) [...] only. Flow Cytometry Summary Concurrent flow cytometry ([id number]) shows acute myeloid leukemia. Specimens A Bone [...] agent. Report dictated by Sivakumar Garrido DO (Ocean Import Representative). Attending Physician: Dr. Augustine Davison Pump Rebuilder: Dr. Sivakumar Garrido DO (Ocean Import Representative). The procedure was performed by the: The conference assistant, and the attending radiologist was present [...] 38 year old female who transferred to [facility] on 09/03/2023 for suspected AML. Patient started 7 + 3 (cytarabine and idarubicin) on 09/06/2023. Now receiving HiDAC consolidation due to concern for BUSINESS OPERATIONS CONSULTANT involvement. 1. AML, NPM-1 mut, fav risk in CR and molecular remission after 7+3 -Pancytopenia, neutropenia -Transferred from [facility] after a BMBX showed 78% blasts on [...] chemo for leukemic retinal infiltration. - Labs reviewed, 1 unit plts given for plts 12 and active vaginal bleeding 10/17/23. 2. [id number] metabolic acidosis -Likely 2/2 Diamox, follow - Decreased Diamox to 250mg PO BID 10/17/23 from 500mg PO BID d/t significant metabolic acidosis on labs. 3. Vaginal bleeding - Patient experiencing lower [...] time - F/u with Dr. Hobson diamox 7. Small volume SAH in right central sulcus - Per CT 10/01/23 - NSGY will f/u with pt in clinic w/ Dr. Lomeli in ~late October or early November 2023 w/ CT non con for imaging. - Keep plts >30K at this time. PLAN: - CBC 3 times a week; social work has arranged rides for patient TIW. - Labs reviewed, 1 unit plt given for plt 12 >> 58. - K and Phos repleted. - S/p Depo shot 10/14 - Will hold dexamethasone on future HiDAC cycles due to concern that it caused pt's dry eyes - Reduce Diamox to 250 mg BID, monitor metabolic acidosis - Continue Valtrex, posaconazole, and levaquin for OI ppx - Medication complete review with pharmacy team and patient; new MedActionPlan provided. Pt understanding of plan and has no questions at this time. - Transfusion parameters: (Leukoreduced and irradiated blood products)pRBC to keep Hgb >7 if hemodynamically stable and no bleeding. PLT transfusion to keep PLT >30K at this time due to (small)SAH, vaginal bleeding, and retinal hemorrhages. F/u: 10/20/23 for basics, ? Transfusions, and ABEL visit, 10/22/23 for basics, ? Transfusions, and on 10/24/23 for basics, ? Transfusions. Britni Winston PA-C [facility] documented in this encounter Plan of Treatment Upcoming Encounters Date Type Department Care Team (Late st Contact Info) Description 10/27/2024 10:30 AM SCREW REMOVER Appointment [facility] [address] [place] [address] Hussain Carias MD [address] [place] [id number] Britni Winston PA-C [address] [place] [address] 11/17/2024 9:00 AM SCREW REMOVER Office Visit [facility] - Ophthalmology [address] [place] [address] Song Hobson MD [address] [place] [address] [place] [address] Pending Results Name Type Priority Associated Diagnoses Date/Time TRANSFUSE PLATELET PHERESIS UNIT(S), 1 Units NSG BLD TRANSFUSION Routine 10/17/2023 3 :10 PM SCREW REMOVER TRANSFUSE PLATELET PHERESIS UNIT(S) NSG BLD TRANSFUSION Routine 10/17/2023 3:08 PM SCREW REMOVER Scheduled Orders Name Type Priority Associated Diagnoses Orde r Schedule PHOSPHORUS BLOOD Lab STAT Acute myeloid leukemia in remission (HCC) 100 Occurrences starting 10/17/2023 until 11/14/2024, 38 completed COMPREHENSIVE METABOLIC PANEL Lab STAT Acute myeloid leukemia in remission (HCC) 100 Occurrences starting 10/17/2023 until 11/14/2024, 38 completed MAGNESIUM BLOOD Lab STAT Acute myeloid leukemia in remission (HCC) 100 Occurrences starting 10/17/2023 until 11/14/2024, 38 completed CBC WITH DIFFERENTIAL Lab STAT Acute myeloid leukemia in remission (HCC) 100 Occurrences starting 10/17/2023 until 11/14/2024, 39 completed LDH BLOOD Lab STAT Acute myeloid leukemia in remission (HCC) 100 Occurrences starting 10/17/2023 until 11/14/2024, 36 completed URIC ACID BLOOD Lab STAT Acute myeloid leukemia in remission (HCC) 100 Occurrences starting 10/17/2023 until 11/14/2024, 35 completed TYPE + SCREEN PANEL Blood Bank STAT Acute myeloid leukemia in remission (HCC) 100 Occurrences starting 10/17/2023 until 11/14/2024, 33 completed documented as of this encounter Procedures Procedure Name Priority Date/Time Associated Diagnosis Comments PLATELET COUNT AUTO STAT 10/17/2023 3 :48 PM SCREW REMOVER Acute myeloid leukemia in remission (HCC) PREPARE PLATELET PHERESIS UNIT(S) Routine 10/17/2023 3:00 PM SCREW REMOVER URIC ACID BLOOD STAT 10/17/2023 1:52 PM SCREW REMOVER Acute myeloid leukemia in remission (HCC) TYPE + SCREEN PANEL STAT 10/17/2023 1 :52 PM SCREW REMOVER Acute myeloid leukemia in remission (HCC) CBC W AUTO DIFFERENTIAL STAT 10/17/2023 1:52 PM SCREW REMOVER Acute myeloid leukemia in remission (HCC) COMPREHENSIVE METABOLIC PANEL STAT 10/17/2023 1:52 PM SCREW REMOVER Acute myeloid leukemia in remission (HCC) PHOSPHORUS BLOOD STAT 10/17/2023 1:52 PM SCREW REMOVER Acute myeloid leukemia in remission (HCC) MAGNESIUM BLOOD STAT 10/17/2023 1:52 PM SCREW REMOVER Acute myeloid leukemia in remission (HCC) LDH BLOOD STAT 10/17/2023 1:52 PM SCREW REMOVER Acute myeloid leukemia in remission (HCC) documented in this encounter Results * TYPE + SCREEN PANEL (06/25/2024 11:19 AM CDT) Antibody Screen NEG 12:16 PM CDT [facility] ABO Rh O POS 06/25/2024 12:16 PM CDT [facility] Blood Bank BLOOD SPECIMEN / Unknown Venipuncture / Unknown 06/25/2024 11:19 AM CDT 06/25/2024 11:35 AM CDT Britni Winston PA-C LAB - BLOOD BANK ORD GELY [facility] [address] [place] [address], [place] [phone] * (ABNORMAL) URIC ACID BLOOD (06/25/2024 11:19 AM CDT) Uric Acid 6.5(H) 2.6 - 6.0 mg/dL 06/25/2024 11:56 AM CDT [facility] Blood BLOOD SPECIMEN / Unknown Venipuncture / Unknown 06/25/2024 11:19 AM CDT 06/25/2024 11:32 AM CDT Britni Winston PA-C LAB - CHEMISTRY JON NAIDU Performing Organization Address City/[facility]/ZIP Co de Phone Number [address] [address], [place] [phone] * LDH BLOOD (06/25/2024 11:19 AM CDT) LDH Total 182 125 - 243 Units/L 06/25/2024 11:56 AM CDT [facility] Blood BLOOD SPECIMEN / Unknown Venipuncture / Unknown 06/25/2024 11:19 AM CDT 06/25/2024 11:32 AM CDT Britni Winston PA-C LAB - CHEMISTRY ORDE ELYSIA Performing Organization Address City/[facility]/ZIP Co de Phone Number [address] [address], [place] [phone] * (ABNORMAL) CBC W AUTO DIFFERENTIAL (06/25/2024 11:19 AM CDT) WBC 5.4 4.0 - 10.7 x10E9/L 06/25/2024 11:37 AM [facility] RBC Count 4.29 3.90 - 5.20 x10E12/L 06/25/2024 11:37 AM [facility] Hemoglobin 14.1 11.9 - 15.8 g/dL 06/25/2024 11:37 AM [facility] Hematocrit 40.8 34.8 - 46.1 % 06/25/2024 11:37 AM [facility] MCV 95.1 80.0 - 98.0 fL 06/25/2024 11:37 AM [facility] MCH 32.9 26.7 - 33.6 pg 06/25/2024 11:37 AM [facility] MCHC 34.6 31.7 - 36.3 g/dL 06/25/2024 11:37 AM [facility] RDW-CV 11.9 11.3 - 14.8 % 06/25/2024 11:37 AM [facility] Platelet Count 134(L) 150 - 420 x10E9/L 06/25/2024 11:37 AM [facility] MPV 9.2 7.8 - 11.4 fL 06/25/2024 11:37 AM [facility] Preliminary Absolute Neutrophil 3.77 1.60 - 7.50 x10E9/L 06/25/2024 11:37 AM [facility] Neutrophil % 69.8 41.0 - 74.0 % 06/25/2024 11:37 AM [facility] Lymphocyte % 18.5 17.0 - 47.0 % 06/25/2024 11:37 AM [facility] Monocyte % 10.2 3.0 - 11.0 % 06/25/2024 11:37 AM [facility] Eosinophil % 0.9 0.0 - 7.0 % 06/25/2024 11:37 AM [facility] Basophil % 0.2 0.0 - 1.6 % 06/25/2024 11:37 AM [facility] Immature Granulocytes % 0.4 0.0 - 1.0 % 06/25/2024 11:37 AM CDT [facility] Neutrophil Absolute 3.77 1.60 - 7.50 x10E9/L 06/25/2024 11:37 AM CDT [facility] Lymphocyte Absolute 1.00 1.00 - 4.40 x10E9/L 06/25/2024 11:37 AM CDT [facility] Monocyte Absolute 0.55 0.15 - 1.00 x10E9/L 06/25/2024 11:37 AM CDT [facility] Eosinophil Absolute 0.05 0.00 - 0.60 x10E9/L 06/25/2024 11:37 AM CDT [facility] Basophil Absolute 0.01 0.00 - 0.13 x10E9/L 06/25/2024 11:37 AM CDT [facility] Blood BLOOD SPECIMEN / Unknown Venipuncture / Unknown 06/25/2024 11:19 AM CDT 06/25/2024 11:32 AM CDT Britni Winston PA-C LAB - HEMATOLOGY ORD ERABLES [address] [address], [facility] [phone] * MAGNESIUM BLOOD (06/25/2024 11:19 AM CDT) Magnesium 2.2 1.6 - 2.6 mg/dL 06/25/2024 11:56 AM CDT [facility] Blood BLOOD SPECIMEN / Unknown Venipuncture / Unknown 06/25/2024 11:19 AM CDT 06/25/2024 11:32 AM CDT Britni Winston PA-C LAB - CHEMISTRY ORDE ELYSIA [address] [address], [facility] [phone] * (ABNORMAL) COMPREHENSIVE METABOLIC PANEL (06/25/2024 11:19 AM CDT) BUN 14 7 - 26 mg/dL 06/25/2024 11:56 AM [facility] Creatinine 0.67 0.56 - 0.96 mg/dL 06/25/2024 11:56 AM [facility] Sodium 141 136 - 145 mmol/L 06/25/2024 11:56 AM [facility] Potassium 3.5 3.5 - 4.5 mmol/L 06/25/2024 11:56 AM [facility] Chloride 115(H) 98 - 107 mmol/L 06/25/2024 11:56 AM [facility] CO2 20(L) 22 - 29 mmol/L 06/25/2024 11:56 AM [facility] Glucose 148(H) 70 - 115 mg/dL 06/25/2024 11:56 AM [facility] Calcium 9.4 8.4 - 10.2 mg/dL 06/25/2024 11:56 AM [facility] Protein Total 6.9 6.0 - 8.3 g/dL 06/25/2024 11:56 AM [facility] Albumin 3.9 3.4 - 5.0 g/dL 06/25/2024 11:56 AM [facility] Bilirubin Total 0.2 0.2 - 1.2 mg/dL 06/25/2024 11:56 AM [facility] Alkaline Phosphatase 93 40 - 150 U/L 06/25/2024 11:56 AM [facility] ALT 14 5 - 55 U/L 06/25/2024 11:56 AM [facility] AST 15 5 - 34 U/L 06/25/2024 11:56 AM [facility] Anion Gap 6 6 - 16 06/25/2024 11:56 AM [facility] BUN/Creatinine Ratio 21 7 - 23 06/25/2024 11:56 AM [facility] Osmolality Calculated 295 275 - 295 mOsm/kg 06/25/2024 11:56 AM [facility] Albumin/Globulin Ratio 1.3 1.1 - 2.3 06/25/2024 11:56 AM [facility] eGFR by CKD-EPI >90 >=90 mL/min/1.7 3 m2 06/25/2024 11:56 AM CDT [facility] Blood BLOOD SPECIMEN / Unknown Venipuncture / Unknown 06/25/2024 11:19 AM CDT 06/25/2024 11:32 AM CDT Britni Winston PA-C LAB - CHEMISTRY JON NAIDU [facility] [address] [place] [address], [place] [phone] * (ABNORMAL) PHOSPHORUS BLOOD (06/25/2024 11:19 AM CDT) Phosphorus 2.8(L) 2.9 - 5.1 mg/dL 06/25/2024 11:56 AM CDT [facility] Blood BLOOD SPECIMEN / Unknown Venipuncture / Unknown 06/25/2024 11:19 AM CDT 06/25/2024 11:32 AM CDT Britni iWnston PA-C LAB - CHEMISTRY JON NAIDU Performing Organization Address City/[facility]/ZIP Co de Phone Number [address] [address], [place] [phone] * TYPE + SCREEN PANEL (03/31/2024 11:22 AM CDT) Antibody Screen NEG 12:12 PM CDT [facility] ABO Rh O POS 03/31/2024 12:12 PM CDT [facility] Blood Bank BLOOD SPECIMEN / Unknown Venipuncture / Unknown 03/31/2024 11:22 AM CDT 03/31/2024 11:27 AM CDT Britni Winston PA-C LAB - BLOOD BANK ORD ERABLES [facility] [address] [place] [address], [place] [phone] * URIC ACID BLOOD (03/31/2024 11:22 AM CDT) Uric Acid 5.3 2.6 - 6.0 mg/dL 03/31/2024 11:59 AM CDT [facility] Blood BLOOD SPECIMEN / Unknown Venipuncture / Unknown 03/31/2024 11:22 AM CDT 03/31/2024 11:26 AM CDT Britni Winston PA-C LAB - CHEMISTRY ORDAzul NAIDU Performing Organization Address [facility]/ZIP Co de Phone Number [address] [address], [facility] [phone] * (ABNORMAL) LDH BLOOD (03/31/2024 11:22 AM CDT) [facility] LDH Total 260(H) 125 - 243 Units/L 03/31/2024 11:59 AM T [facility] Blood BLOOD SPECIMEN / Unknown Venipuncture / Unknown 03/31/2024 11:22 AM CDT 03/31/2024 11:26 AM CDT Britni Winston PA-C LAB - CHEMISTRY JON NAIDU Performing Organization Address City/[facility]/ZIP Co de Phone Number [address] [address], [facility] [phone] * (ABNORMAL) CBC WITH DIFFERENTIAL (03/31/2024 11:22 AM CDT) [facility] WBC 5.6 4.0 - 10.7 x10E9/L 03/31/2024 11:47 AM [facility] RBC Count 3.09(L) 3.90 - 5.20 x10E12/L 03/31/2024 11:47 AM [facility] Hemoglobin 10.4(L) 11.9 - 15.8 g/dL 03/31/2024 11:47 AM [facility] Hematocrit 31.0(L) 34.8 - 46.1 % 03/31/2024 11:47 AM [facility] MCV 100.3(H) 80.0 - 98.0 fL 03/31/2024 11:47 AM [facility] MCH 33.7(H) 26.7 - 33.6 pg 03/31/2024 11:47 AM [facility] MCHC 33.5 31.7 - 36.3 g/dL 03/31/2024 11:47 AM [facility] RDW-CV 18.1(H) 11.3 - 14.8 % 03/31/2024 11:47 AM [facility] Platelet Count 51(L) 150 - 420 x10E9/L 03/31/2024 11:47 AM [facility] MPV 12.8(H) 7.8 - 11.4 fL 03/31/2024 11:47 AM [facility] Preliminary Absolute Neutrophil 4.11 1.60 - 7.50 x10E9/L 03/31/2024 11:47 AM [facility] Comment:Preliminary ANC pend ing manual confirmation Neutrophil % 73.8 41.0 - 74.0 % 03/31/2024 11:47 AM [facility] Lymphocyte % 15.8(L) 17.0 - 47.0 % 03/31/2024 11:47 AM [facility] Monocyte % 8.8 3.0 - 11.0 % 03/31/2024 11:47 AM [facility] Eosinophil % 0.9 0.0 - 7.0 % 03/31/2024 11:47 AM [facility] Basophil % 0.2 0.0 - 1.6 % 03/31/2024 11:47 AM [facility] Immature Granulocytes % 0.5 0.0 - 1.0 % 03/31/2024 11:47 AM [facility] Neutrophil Absolute 4.11 1.60 - 7.50 x10E9/L 03/31/2024 11:47 AM [facility] Lymphocyte Absolute 0.88(L) 1.00 - 4.40 x10E9/L 03/31/2024 11:47 AM [facility] Monocyte Absolute 0.49 0.15 - 1.00 x10E9/L 03/31/2024 11:47 AM [facility] Eosinophil Absolute 0.05 0.00 - 0.60 x10E9/L 03/31/2024 11:47 AM [facility] Basophil Absolute 0.01 0.00 - 0.13 x10E9/L 03/31/2024 11:47 AM CDT [facility] Blood BLOOD SPECIMEN / Unknown Venipuncture / Unknown 03/31/2024 11:22 AM CDT 03/31/2024 11:26 AM CDT Britni Winston PA-C LAB - HEMATOLOGY ORD ERABLES Performing Organization Address City/[facility]/ZIP Co de Phone Number [address] [address], [facility] [phone] * MAGNESIUM BLOOD (03/31/2024 11:22 AM CDT) Magnesium 2.1 1.6 - 2.6 mg/dL 03/31/2024 11:59 AM CDT [facility] Blood BLOOD SPECIMEN / Unknown Venipuncture / Unknown 03/31/2024 11:22 AM CDT 03/31/2024 11:26 AM CDT Britni Winston PA-C LAB - CHEMISTRY ORDAzul NAIDU [address] [address], [place] [phone] * (ABNORMAL) COMPREHENSIVE METABOLIC PANEL (03/31/2024 11:22 AM CDT) BUN 9 7 - 26 mg/dL 03/31/2024 11:59 AM CDT [facility] Creatinine 0.68 0.56 - 0.96 mg/dL 03/31/2024 11:59 AM CDT [facility] Sodium 141 136 - 145 mmol/L 03/31/2024 11:59 AM CDT [facility] Potassium 3.7 3.5 - 4.5 mmol/L 03/31/2024 11:59 AM CDT [facility] Chloride 119(H) 98 - 107 mmol/L 03/31/2024 11:59 AM CDT [facility] CO2 16(L) 22 - 29 mmol/L 03/31/2024 11:59 AM [facility] Glucose 177(H) 70 - 115 mg/dL 03/31/2024 11:59 AM [facility] Calcium 9.4 8.4 - 10.2 mg/dL 03/31/2024 11:59 AM [facility] Protein Total 7.2 6.0 - 8.3 g/dL 03/31/2024 11:59 AM [facility] Albumin 3.6 3.4 - 5.0 g/dL 03/31/2024 11:59 AM [facility] Bilirubin Total 0.3 0.2 - 1.2 mg/dL 03/31/2024 11:59 AM [facility] Alkaline Phosphatase 81 40 - 150 U/L 03/31/2024 11:59 AM [facility] ALT 20 5 - 55 U/L 03/31/2024 11:59 AM [facility] AST 25 5 - 34 U/L 03/31/2024 11:59 AM [facility] Anion Gap 6 6 - 16 03/31/2024 11:59 AM [facility] BUN/Creatinine Ratio 13 7 - 23 03/31/2024 11:59 AM [facility] Osmolality Calculated 295 275 - 295 mOsm/kg 03/31/2024 11:59 AM [facility] Albumin/Globulin Ratio 1.0(L) 1.1 - 2.3 03/31/2024 11:59 AM [facility] eGFR by CKD-EPI >90 >=90 mL/min/1.7 3 m2 03/31/2024 11:59 AM [facility] Blood BLOOD SPECIMEN / Unknown Venipuncture / Unknown 03/31/2024 11:22 AM T 03/31/2024 11:26 AM [facility] Britni Winston PA-C LAB - CHEMISTRY ORDAzul NAIDU [facility] Organization Address City/State/ZIP Co de Phone Number [facility] [address] [place] [address], [facility] [phone] * (ABNORMAL) PHOSPHORUS BLOOD (03/31/2024 11:22 AM CDT) Phosphorus 2.1(L) 2.9 - 5.1 mg/dL 03/31/2024 11:59 AM CDT [facility] Blood BLOOD SPECIMEN / Unknown Venipuncture / Unknown 03/31/2024 11:22 AM CDT 03/31/2024 11:26 AM CDT Britni Winston PA-C LAB - CHEMISTRY JON NAIDU [address] [address], [place] [phone] * TYPE + SCREEN PANEL (02/26/2024 1:12 PM CDT) Pathologist [facility] Antibody Screen NEG 2:11 PM CDT [facility] ABO Rh O POS 02/26/2024 2:11 PM CDT [facility] Blood Bank BLOOD SPECIMEN / Unknown Venipuncture / Unknown 02/26/2024 1:12 PM CDT 02/26/2024 1:27 PM CDT Britni Winston PA-C LAB - BLOOD BANK ORD GELY [facility] [address] [place] [address], [place] [phone] * URIC ACID BLOOD (02/26/2024 1:12 PM CDT) Pathologist [facility] Uric Acid 4.7 2.6 - 6.0 mg/dL 02/26/2024 1:51 PM CDT [facility] Blood BLOOD SPECIMEN / Unknown Venipuncture / Unknown 02/26/2024 1:12 PM CDT 02/26/2024 1:22 PM CDT Britni Winston PA-C LAB - CHEMISTRY JON NAIDU [address] [address], [facility] [phone] * LDH BLOOD (02/26/2024 1:12 PM CDT) [facility] LDH Total 218 125 - 243 Units/L 02/26/2024 1:51 PM [facility] Blood BLOOD SPECIMEN / Unknown Venipuncture / Unknown 02/26/2024 1:12 PM CDT 02/26/2024 1:22 PM CDT Britni Winston PA-C LAB - CHEMISTRY ORDE ELYSIA [facility] Organization Address City/State/ZIP Co de Phone Number [facility] [address] [place] [address], [facility] [phone] * (ABNORMAL) CBC WITH DIFFERENTIAL (02/26/2024 1:12 PM CDT) [facility] WBC 5.8 4.0 - 10.7 x10E9/L 02/26/2024 2:09 PM [facility] RBC Count 2.99(L) 3.90 - 5.20 x10E12/L 02/26/2024 2:09 PM [facility] Hemoglobin 9.6(L) 11.9 - 15.8 g/dL 02/26/2024 2:09 PM [facility] Hematocrit 28.5(L) 34.8 - 46.1 % 02/26/2024 2:09 PM [facility] MCV 95.3 80.0 - 98.0 fL 02/26/2024 2:09 PM [facility] MCH 32.1 26.7 - 33.6 pg 02/26/2024 2:09 PM [facility] MCHC 33.7 31.7 - 36.3 g/dL 02/26/2024 2:09 PM [facility] RDW-CV 24.4(H) 11.3 - 14.8 % 02/26/2024 2:09 PM [facility] Platelet Count 41(L) 150 - 420 x10E9/L 02/26/2024 2:09 PM [facility] MPV 11.1 7.8 - 11.4 fL 02/26/2024 2:09 PM [facility] Preliminary Absolute Neutrophil 3.75 1.60 - 7.50 x10E9/L 02/26/2024 2:09 PM [facility] Comment:Preliminary ANC pend ing manual confirmation Neutrophil % 64.9 41.0 - 74.0 % 02/26/2024 2:09 PM [facility] Lymphocyte % 18.0 17.0 - 47.0 % 02/26/2024 2:09 PM [facility] Monocyte % 15.7(H) 3.0 - 11.0 % 02/26/2024 2:09 PM [facility] Eosinophil % 0.7 0.0 - 7.0 % 02/26/2024 2:09 PM [facility] Basophil % 0.2 0.0 - 1.6 % 02/26/2024 2:09 PM [facility] Immature Granulocytes % 0.5 0.0 - 1.0 % 02/26/2024 2:09 PM [facility] Neutrophil Absolute 3.75 1.60 - 7.50 x10E9/L 02/26/2024 2:09 PM [facility] Lymphocyte Absolute 1.04 1.00 - 4.40 x10E9/L 02/26/2024 2:09 PM [facility] Monocyte Absolute 0.91 0.15 - 1.00 x10E9/L 02/26/2024 2:09 PM [facility] Eosinophil Absolute 0.04 0.00 - 0.60 x10E9/L 02/26/2024 2:09 PM [facility] Basophil Absolute 0.01 0.00 - 0.13 x10E9/L 02/26/2024 2:09 PM [facility] Blood BLOOD SPECIMEN / Unknown Venipuncture / Unknown 02/26/2024 1:12 PM CDT 02/26/2024 1:23 PM CDT Britni Winston PA-C LAB - HEMATOLOGY ORD ERABLES [facility] [address] [place] [address], [facility] [phone] * MAGNESIUM BLOOD (02/26/2024 1:12 PM CDT) [facility] Magnesium 2.1 1.6 - 2.6 mg/dL 02/26/2024 1:51 PM [facility] Blood BLOOD SPECIMEN / Unknown Venipuncture / Unknown 02/26/2024 1:12 PM CDT 02/26/2024 1:22 PM CDT Britni Winston PA-C LAB - CHEMISTRY JON NAIDU [facility] Organization Address City/State/ZIP Co de Phone Number [address] [address], [facility] [phone] * (ABNORMAL) COMPREHENSIVE METABOLIC PANEL (02/26/2024 1:12 PM CDT) [facility] BUN 7 7 - 26 mg/dL 02/26/2024 1:51 PM [facility] Creatinine 0.66 0.56 - 0.96 mg/dL 02/26/2024 1:51 PM [facility] Sodium 144 136 - 145 mmol/L 02/26/2024 1:51 PM [facility] Potassium 3.8 3.5 - 4.5 mmol/L 02/26/2024 1:51 PM [facility] Chloride 113(H) 98 - 107 mmol/L 02/26/2024 1:51 PM [facility] CO2 21(L) 22 - 29 mmol/L 02/26/2024 1:51 PM [facility] Glucose 119(H) 70 - 115 mg/dL 02/26/2024 1:51 PM [facility] Calcium 9.4 8.4 - 10.2 mg/dL 02/26/2024 1:51 PM [facility] Protein Total 6.7 6.0 - 8.3 g/dL 02/26/2024 1:51 PM [facility] Albumin 3.5 3.4 - 5.0 g/dL 02/26/2024 1:51 PM [facility] Bilirubin Total 0.4 0.2 - 1.2 mg/dL 02/26/2024 1:51 PM [facility] Alkaline Phosphatase 74 40 - 150 U/L 02/26/2024 1:51 PM [facility] ALT 29 5 - 55 U/L 02/26/2024 1:51 PM [facility] AST 24 5 - 34 U/L 02/26/2024 1:51 PM [facility] Anion Gap 10 6 - 16 02/26/2024 1:51 PM [facility] BUN/Creatinine Ratio 11 7 - 23 02/26/2024 1:51 PM [facility] Osmolality Calculated 297(H) 275 - 295 mOsm/kg 02/26/2024 1:51 PM [facility] Albumin/Globulin Ratio 1.1 1.1 - 2.3 02/26/2024 1:51 PM [facility] eGFR by CKD-EPI >90 >=90 mL/min/1.7 3 m2 02/26/2024 1:51 PM T [facility] Blood BLOOD SPECIMEN / Unknown Venipuncture / Unknown 02/26/2024 1:12 PM CDT 02/26/2024 1:22 PM CDT Britni Winston PA-C LAB - CHEMISTRY JON NAIDU Performing Organization Address City/[facility]/ZIP Co de Phone Number [address] [address], [facility] [phone] * (ABNORMAL) PHOSPHORUS BLOOD (02/26/2024 1:12 PM CDT) Phosphorus 2.8(L) 2.9 - 5.1 mg/dL 02/26/2024 1:51 PM CDT [facility] Blood BLOOD SPECIMEN / Unknown Venipuncture / Unknown 02/26/2024 1:12 PM CDT 02/26/2024 1:22 PM CDT Britni Winston PA-C LAB - CHEMISTRY ORDAzul NAIDU [address] [address], [place] [phone] * URIC ACID BLOOD (02/20/2024 9:43 AM CDT) [facility] Uric Acid 4.3 2.6 - 6.0 mg/dL 02/20/2024 10:21 AM CDT [facility] Blood BLOOD SPECIMEN / Unknown Venipuncture / Unknown 02/20/2024 9:43 AM CDT 02/20/2024 9:49 AM CDT Britni Winston PA-C LAB - CHEMISTRY JON NAIDU [address] [address], [place] [phone] * LDH BLOOD (02/20/2024 9:43 AM CDT) [facility] LDH Total 192 125 - 243 Units/L 02/20/2024 10:21 AM CDT [facility] Blood BLOOD SPECIMEN / Unknown Venipuncture / Unknown 02/20/2024 9:43 AM CDT 02/20/2024 9:49 AM CDT Britni Winston PA-C LAB - CHEMISTRY ORDAzul NAIDU [address] [address], [place] [phone] * (ABNORMAL) CBC WITH DIFFERENTIAL (02/20/2024 9:43 AM CDT) [facility] WBC 7.2 4.0 - 10.7 x10E9/L 02/20/2024 11:11 AM CDT [facility] RBC Count 2.89(L) 3.90 - 5.20 x10E12/L 02/20/2024 11:11 AM CDT [facility] Hemoglobin 9.2(L) 11.9 - 15.8 g/dL 02/20/2024 11:11 AM CDT [facility] Hematocrit 27.0(L) 34.8 - 46.1 % 02/20/2024 11:11 AM [facility] MCV 93.4 80.0 - 98.0 fL 02/20/2024 11:11 AM [facility] MCH 31.8 26.7 - 33.6 pg 02/20/2024 11:11 AM [facility] MCHC 34.1 31.7 - 36.3 g/dL 02/20/2024 11:11 AM [facility] RDW-CV 24.6(H) 11.3 - 14.8 % 02/20/2024 11:11 AM [facility] Platelet Count 46(L) 150 - 420 x10E9/L 02/20/2024 11:11 AM [facility] MPV 11.1 7.8 - 11.4 fL 02/20/2024 11:11 AM [facility] Preliminary Absolute Neutrophil 5.41 1.60 - 7.50 x10E9/L 02/20/2024 11:11 AM [facility] Comment:Preliminary ANC pend ing manual confirmation Neutrophil % 74.8(H) 41.0 - 74.0 % 02/20/2024 11:11 AM [facility] Lymphocyte % 13.1(L) 17.0 - 47.0 % 02/20/2024 11:11 AM [facility] Monocyte % 10.8 3.0 - 11.0 % 02/20/2024 11:11 AM [facility] Eosinophil % 0.6 0.0 - 7.0 % 02/20/2024 11:11 AM [facility] Basophil % 0.1 0.0 - 1.6 % 02/20/2024 11:11 AM [facility] Immature Granulocytes % 0.6 0.0 - 1.0 % 02/20/2024 11:11 AM [facility] Neutrophil Absolute 5.41 1.60 - 7.50 x10E9/L 02/20/2024 11:11 AM [facility] Lymphocyte Absolute 0.95(L) 1.00 - 4.40 x10E9/L 02/20/2024 11:11 AM [facility] Monocyte Absolute 0.78 0.15 - 1.00 x10E9/L 02/20/2024 11:11 AM CDT [facility] Eosinophil Absolute 0.04 0.00 - 0.60 x10E9/L 02/20/2024 11:11 AM CDT [facility] Basophil Absolute 0.01 0.00 - 0.13 x10E9/L 02/20/2024 11:11 AM CDT [facility] Blood BLOOD SPECIMEN / Unknown Venipuncture / Unknown 02/20/2024 9:43 AM CDT 02/20/2024 9:49 AM CDT Britni Winston PA-C LAB - HEMATOLOGY ORD ERABLES [address] [address], [facility] [phone] * MAGNESIUM BLOOD (02/20/2024 9:43 AM CDT) Magnesium 2.0 1.6 - 2.6 mg/dL 02/20/2024 10:21 AM CDT [facility] Blood BLOOD SPECIMEN / Unknown Venipuncture / Unknown 02/20/2024 9:43 AM CDT 02/20/2024 9:49 AM CDT Britni Winston PA-C LAB - CHEMISTRY ORDAzul RABQI [address] [address], [place] [phone] * (ABNORMAL) COMPREHENSIVE METABOLIC PANEL (02/20/2024 9:43 AM CDT) BUN 7 7 - 26 mg/dL 02/20/2024 10:21 AM CDT [facility] Creatinine 0.65 0.56 - 0.96 mg/dL 02/20/2024 10:21 AM CDT [facility] Sodium 140 136 - 145 mmol/L 02/20/2024 10:21 AM CDT [facility] Potassium 3.6 3.5 - 4.5 mmol/L 02/20/2024 10:21 AM [facility] Chloride 111(H) 98 - 107 mmol/L 02/20/2024 10:21 AM [facility] CO2 21(L) 22 - 29 mmol/L 02/20/2024 10:21 AM [facility] Glucose 159(H) 70 - 115 mg/dL 02/20/2024 10:21 AM [facility] Calcium 9.5 8.4 - 10.2 mg/dL 02/20/2024 10:21 AM [facility] Protein Total 6.7 6.0 - 8.3 g/dL 02/20/2024 10:21 AM [facility] Albumin 3.5 3.4 - 5.0 g/dL 02/20/2024 10:21 AM [facility] Bilirubin Total 0.4 0.2 - 1.2 mg/dL 02/20/2024 10:21 AM [facility] Alkaline Phosphatase 81 40 - 150 U/L 02/20/2024 10:21 AM [facility] ALT 24 5 - 55 U/L 02/20/2024 10:21 AM [facility] AST 17 5 - 34 U/L 02/20/2024 10:21 AM [facility] Anion Gap 8 6 - 16 02/20/2024 10:21 AM [facility] BUN/Creatinine Ratio 11 7 - 23 02/20/2024 10:21 AM [facility] Osmolality Calculated 291 275 - 295 mOsm/kg 02/20/2024 10:21 AM [facility] Albumin/Globulin Ratio 1.1 1.1 - 2.3 02/20/2024 10:21 AM [facility] eGFR by CKD-EPI >90 >=90 mL/min/1.7 3 m2 02/20/2024 10:21 AM [facility] Blood BLOOD SPECIMEN / Unknown Venipuncture / Unknown 02/20/2024 9:43 AM CDT 02/20/2024 9:49 AM T Britni Winston PA-C LAB - CHEMISTRY JON NAIDU [facility] Organization Address City/State/ZIP Co de Phone Number [facility] [address] [place] [address], [place] [phone] * PHOSPHORUS BLOOD (02/20/2024 9:43 AM CDT) Phosphorus 3.3 2.9 - 5.1 mg/dL 02/20/2024 10:21 AM CDT [facility] Blood BLOOD SPECIMEN / Unknown Venipuncture / Unknown 02/20/2024 9:43 AM CDT 02/20/2024 9:49 AM CDT Britni Winston PA-C LAB - CHEMISTRY JON NAIDU Performing Organization Address City/[facility]/ZIP Co de Phone Number [address] [address], [place] [phone] * URIC ACID BLOOD (02/13/2024 10:57 AM CDT) Uric Acid 4.5 2.6 - 6.0 mg/dL 02/13/2024 11:42 AM CDT [facility] Blood BLOOD SPECIMEN / Unknown Venipuncture / Unknown 02/13/2024 10:57 AM CDT 02/13/2024 11:41 AM CDT Britni Winston PA-C LAB - CHEMISTRY JON NAIDU Performing Organization Address City/[facility]/ZIP Co de Phone Number [address] [address], [place] [phone] * LDH BLOOD (02/13/2024 10:57 AM CDT) LDH Total 214 125 - 243 Units/L 02/13/2024 11:42 AM CDT [facility] Blood BLOOD SPECIMEN / Unknown Venipuncture / Unknown 02/13/2024 10:57 AM CDT 02/13/2024 11:41 AM CDT Britni Winston PA-C LAB - CHEMISTRY JON NAIDU [address] [place] [address] [phone] * (ABNORMAL) CBC WITH DIFFERENTIAL (02/13/2024 10:57 AM [facility]) WBC 5.3 4.0 - 10.7 x10E9/L 02/13/2024 11:32 AM [facility] RBC Count 2.84(L) 3.90 - 5.20 x10E12/L 02/13/2024 11:32 AM [facility] Hemoglobin 8.7(L) 11.9 - 15.8 g/dL 02/13/2024 11:32 AM [facility] Hematocrit 25.9(L) 34.8 - 46.1 % 02/13/2024 11:32 AM [facility] MCV 91.2 80.0 - 98.0 fL 02/13/2024 11:32 AM [facility] MCH 30.6 26.7 - 33.6 pg 02/13/2024 11:32 AM [facility] MCHC 33.6 31.7 - 36.3 g/dL 02/13/2024 11:32 AM [facility] RDW-CV 22.8(H) 11.3 - 14.8 % 02/13/2024 11:32 AM [facility] Platelet Count 45(L) 150 - 420 x10E9/L 02/13/2024 11:32 AM [facility] MPV 11.2 7.8 - 11.4 fL 02/13/2024 11:32 AM [facility] Preliminary Absolute Neutrophil 3.31 1.60 - 7.50 x10E9/L 02/13/2024 11:32 AM [facility] Comment:Preliminary ANC pend ing manual confirmation Neutrophil % 62.8 41.0 - 74.0 % 02/13/2024 11:32 AM [facility] Lymphocyte % 20.1 17.0 - 47.0 % 02/13/2024 11:32 AM [facility] Monocyte % 15.2(H) 3.0 - 11.0 % 02/13/2024 11:32 AM [facility] Eosinophil % 0.6 0.0 - 7.0 % 02/13/2024 11:32 AM [facility] Basophil % 0.2 0.0 - 1.6 % 02/13/2024 11:32 AM [facility] Immature Granulocytes % 1.1(H) 0.0 - 1.0 % 02/13/2024 11:32 AM [facility] Neutrophil Absolute 3.31 1.60 - 7.50 x10E9/L 02/13/2024 11:32 AM [facility] Lymphocyte Absolute 1.06 1.00 - 4.40 x10E9/L 02/13/2024 11:32 AM [facility] Monocyte Absolute 0.80 0.15 - 1.00 x10E9/L 02/13/2024 11:32 AM [facility] Eosinophil Absolute 0.03 0.00 - 0.60 x10E9/L 02/13/2024 11:32 AM [facility] Basophil Absolute 0.01 0.00 - 0.13 x10E9/L 02/13/2024 11:32 AM [facility] NRBC 0.8(H) <=0.0 /100 WBC 02/13/2024 11:32 AM [facility] Blood BLOOD SPECIMEN / Unknown Venipuncture / Unknown 02/13/2024 10:57 AM CDT 02/13/2024 11:05 AM T Britni Winston PA-C LAB - HEMATOLOGY ORD ERABLES Performing Organization Address City/State/[facility] Co de Phone Number [facility] [address] [place] [address] [phone] * MAGNESIUM BLOOD (02/13/2024 10:57 AM CDT) [facility] Signature Magnesium 2.0 1.6 - 2.6 mg/dL 02/13/2024 11:42 AM [facility] Blood BLOOD SPECIMEN / Unknown Venipuncture / Unknown 02/13/2024 10:57 AM CDT 02/13/2024 11:41 AM CDT Britni Winston PA-C LAB - CHEMISTRY JON NAIDU [facility] [address] [place] [address], [facility] [phone] * (ABNORMAL) COMPREHENSIVE METABOLIC PANEL (02/13/2024 10:57 AM CDT) BUN 6(L) 7 - 26 mg/dL 02/13/2024 11:42 AM [facility] Creatinine 0.66 0.56 - 0.96 mg/dL 02/13/2024 11:42 AM [facility] Sodium 140 136 - 145 mmol/L 02/13/2024 11:42 AM [facility] Potassium 3.6 3.5 - 4.5 mmol/L 02/13/2024 11:42 AM [facility] Chloride 111(H) 98 - 107 mmol/L 02/13/2024 11:42 AM [facility] CO2 22 22 - 29 mmol/L 02/13/2024 11:42 AM [facility] Glucose 190(H) 70 - 115 mg/dL 02/13/2024 11:42 AM [facility] Calcium 9.4 8.4 - 10.2 mg/dL 02/13/2024 11:42 AM [facility] Protein Total 6.6 6.0 - 8.3 g/dL 02/13/2024 11:42 AM [facility] Albumin 3.4 3.4 - 5.0 g/dL 02/13/2024 11:42 AM [facility] Bilirubin Total 0.3 0.2 - 1.2 mg/dL 02/13/2024 11:42 AM [facility] Alkaline Phosphatase 76 40 - 150 U/L 02/13/2024 11:42 AM [facility] ALT 25 5 - 55 U/L 02/13/2024 11:42 AM [facility] AST 17 5 - 34 U/L 02/13/2024 11:42 AM [facility] Anion Gap 7 6 - 16 02/13/2024 11:42 AM CDT [facility] BUN/Creatinine Ratio 9 7 - 23 02/13/2024 11:42 AM T [facility] Osmolality Calculated 293 275 - 295 mOsm/kg 02/13/2024 11:42 AM T [facility] Albumin/Globulin Ratio 1.1 1.1 - 2.3 02/13/2024 11:42 AM T [facility] eGFR by CKD-EPI >90 >=90 mL/min/1.7 3 m2 02/13/2024 11:42 AM CDT [facility] [facility] Blood BLOOD SPECIMEN / Unknown Venipuncture / Unknown 02/13/2024 10:57 AM CDT 02/13/2024 11:41 AM CDT Britni Winston PA-C LAB - CHEMISTRY JON NAIDU Performing Organization Address City/[facility]/ZIP Co de Phone Number [address] [address], [place] [phone] * (ABNORMAL) PHOSPHORUS BLOOD (02/13/2024 10:57 AM CDT) Phosphorus 2.8(L) 2.9 - 5.1 mg/dL 02/13/2024 11:42 AM CDT [facility] Blood BLOOD SPECIMEN / Unknown Venipuncture / Unknown 02/13/2024 10:57 AM CDT 02/13/2024 11:41 AM CDT Britni Winston PA-C LAB - CHEMISTRY JON NAIDU [address] [address], [place] [phone] * TYPE + SCREEN PANEL (02/10/2024 9:29 AM CDT) Antibody Screen NEG 10:40 AM CDT [facility] ABO Rh O POS 02/10/2024 10:40 AM CDT [facility] Blood Bank BLOOD SPECIMEN / Unknown Venipuncture / Unknown 02/10/2024 9:29 AM CDT 02/10/2024 9:52 AM CDT Britni Winston PA-C LAB - BLOOD BANK ORD ERABLES [facility] [address] [place] [address], [facility] [phone] * (ABNORMAL) CBC WITH DIFFERENTIAL (02/10/2024 9:29 AM CDT) WBC 4.8 4.0 - 10.7 x10E9/L 02/10/2024 10:30 AM [facility] RBC Count 2.81(L) 3.90 - 5.20 x10E12/L 02/10/2024 10:30 AM [facility] Hemoglobin 8.5(L) 11.9 - 15.8 g/dL 02/10/2024 10:30 AM [facility] Hematocrit 25.0(L) 34.8 - 46.1 % 02/10/2024 10:30 AM [facility] MCV 89.0 80.0 - 98.0 fL 02/10/2024 10:30 AM [facility] MCH 30.2 26.7 - 33.6 pg 02/10/2024 10:30 AM [facility] MCHC 34.0 31.7 - 36.3 g/dL 02/10/2024 10:30 AM [facility] RDW-CV 20.9(H) 11.3 - 14.8 % 02/10/2024 10:30 AM [facility] Platelet Count 37(L) 150 - 420 x10E9/L 02/10/2024 10:30 AM [facility] MPV 11.2 7.8 - 11.4 fL 02/10/2024 10:30 AM [facility] Preliminary Absolute Neutrophil 2.78 1.60 - 7.50 x10E9/L 02/10/2024 10:30 AM [facility] Comment:Preliminary ANC pend ing manual confirmation Neutrophil % 57.8 41.0 - 74.0 % 02/10/2024 10:30 AM [facility] Lymphocyte % 23.5 17.0 - 47.0 % 02/10/2024 10:30 AM [facility] Monocyte % 17.9(H) 3.0 - 11.0 % 02/10/2024 10:30 AM [facility] Eosinophil % 0.2 0.0 - 7.0 % 02/10/2024 10:30 AM [facility] Basophil % 0.0 0.0 - 1.6 % 02/10/2024 10:30 AM [facility] Immature Granulocytes % 0.6 0.0 - 1.0 % 02/10/2024 10:30 AM [facility] Neutrophil Absolute 2.78 1.60 - 7.50 x10E9/L 02/10/2024 10:30 AM [facility] Lymphocyte Absolute 1.13 1.00 - 4.40 x10E9/L 02/10/2024 10:30 AM [facility] Monocyte Absolute 0.86 0.15 - 1.00 x10E9/L 02/10/2024 10:30 AM [facility] Eosinophil Absolute 0.01 0.00 - 0.60 x10E9/L 02/10/2024 10:30 AM [facility] Basophil Absolute 0.00 0.00 - 0.13 x10E9/L 02/10/2024 10:30 AM [facility] NRBC 0.8(H) <=0.0 /100 WBC 02/10/2024 10:30 AM [facility] Blood BLOOD SPECIMEN / Unknown Venipuncture / Unknown 02/10/2024 9:29 AM CDT 02/10/2024 9:38 AM CDT Britni Winston PA-C LAB - HEMATOLOGY ORD ERABLES [address] [address], [facility] [phone] * MAGNESIUM BLOOD (02/10/2024 9:29 AM CDT) Magnesium 2.0 1.6 - 2.6 mg/dL 02/10/2024 10:09 AM [facility] Blood BLOOD SPECIMEN / Unknown Venipuncture / Unknown 02/10/2024 9:29 AM CDT 02/10/2024 9:37 AM T Britni Winston PA-C LAB - CHEMISTRY JON NAIDU [facility] Organization Address City/State/ZIP Co de Phone Number [facility] [address] [place] [address], [facility] [phone] * (ABNORMAL) COMPREHENSIVE METABOLIC PANEL (02/10/2024 9:29 AM T) BUN 9 7 - 26 mg/dL 02/10/2024 10:09 AM [facility] Creatinine 0.66 0.56 - 0.96 mg/dL 02/10/2024 10:09 AM [facility] Sodium 141 136 - 145 mmol/L 02/10/2024 10:09 AM [facility] Potassium 3.6 3.5 - 4.5 mmol/L 02/10/2024 10:09 AM [facility] Chloride 110(H) 98 - 107 mmol/L 02/10/2024 10:09 AM [facility] CO2 19(L) 22 - 29 mmol/L 02/10/2024 10:09 AM [facility] Glucose 175(H) 70 - 115 mg/dL 02/10/2024 10:09 AM [facility] Calcium 9.9 8.4 - 10.2 mg/dL 02/10/2024 10:09 AM [facility] Protein Total 6.6 6.0 - 8.3 g/dL 02/10/2024 10:09 AM [facility] Albumin 3.4 3.4 - 5.0 g/dL 02/10/2024 10:09 AM [facility] Bilirubin Total 0.4 0.2 - 1.2 mg/dL 02/10/2024 10:09 AM [facility] Alkaline Phosphatase 78 40 - 150 U/L 02/10/2024 10:09 AM [facility] ALT 22 5 - 55 U/L 02/10/2024 10:09 AM [facility] AST 17 5 - 34 U/L 02/10/2024 10:09 AM [facility] Anion Gap 12 6 - 16 02/10/2024 10:09 AM [facility] BUN/Creatinine Ratio 14 7 - 23 02/10/2024 10:09 AM [facility] Osmolality Calculated 295 275 - 295 mOsm/kg 02/10/2024 10:09 AM [facility] Albumin/Globulin Ratio 1.1 1.1 - 2.3 02/10/2024 10:09 AM [facility] eGFR by CKD-EPI >90 >=90 mL/min/1.7 3 m2 02/10/2024 10:09 AM [facility] Blood BLOOD SPECIMEN / Unknown Venipuncture / Unknown 02/10/2024 9:29 AM CDT 02/10/2024 9:37 AM CDT Britni Winston PA-C LAB - CHEMISTRY JON NAIDU [address] [address], [facility] [phone] * PHOSPHORUS BLOOD (02/10/2024 9:29 AM CDT) Phosphorus 3.4 2.9 - 5.1 mg/dL 02/10/2024 10:09 AM [facility] Blood BLOOD SPECIMEN / Unknown Venipuncture / Unknown 02/10/2024 9:29 AM CDT 02/10/2024 9:37 AM CDT Britni Winston PA-C LAB - CHEMISTRY JON NAIDU [address] [address], [place] [phone] * TYPE + SCREEN PANEL (02/06/2024 9:58 AM CDT) Antibody Screen NEG 11:02 AM T [facility] ABO Rh O POS 02/06/2024 11:02 AM CDT [facility] Blood Bank BLOOD SPECIMEN / Unknown Venipuncture / Unknown 02/06/2024 9:58 AM CDT 02/06/2024 10:12 AM CDT Britni Winston PA-C LAB - BLOOD BANK ORD ERABLES [facility] [address] [place] [address], [facility] [phone] * LDH BLOOD (02/06/2024 9:58 AM CDT) Pathologist [facility] LDH Total 206 125 - 243 Units/L 02/06/2024 10:49 AM CDT [facility] Blood BLOOD SPECIMEN / Unknown Venipuncture / Unknown 02/06/2024 9:58 AM CDT 02/06/2024 10:13 AM CDT Britni Winston PA-C LAB - CHEMISTRY ORDE RABLES [facility] [address] [place] [address], [facility] [phone] * (ABNORMAL) CBC WITH DIFFERENTIAL (02/06/2024 9:58 AM CDT) Pathologist [facility] WBC 4.1 4.0 - 10.7 x10E9/L 02/06/2024 11:22 AM T [facility] RBC Count 2.36(L) 3.90 - 5.20 x10E12/L 02/06/2024 11:22 AM T [facility] Hemoglobin 7.0(L) 11.9 - 15.8 g/dL 02/06/2024 11:22 AM T [facility] Hematocrit 20.6(L) 34.8 - 46.1 % 02/06/2024 11:22 AM [facility] MCV 87.3 80.0 - 98.0 fL 02/06/2024 11:22 AM T [facility] MCH 29.7 26.7 - 33.6 pg 02/06/2024 11:22 AM [facility] MCHC 34.0 31.7 - 36.3 g/dL 02/06/2024 11:22 AM [facility] RDW-CV 18.9(H) 11.3 - 14.8 % 02/06/2024 11:22 AM [facility] Platelet Count 33(L) 150 - 420 x10E9/L 02/06/2024 11:22 AM [facility] MPV 11.4 7.8 - 11.4 fL 02/06/2024 11:22 AM [facility] Preliminary Absolute Neutrophil 2.22 1.60 - 7.50 x10E9/L 02/06/2024 11:22 AM [facility] Comment:Preliminary ANC pend ing manual confirmation Neutrophil % 54.9 41.0 - 74.0 % 02/06/2024 11:22 AM [facility] Lymphocyte % 26.9 17.0 - 47.0 % 02/06/2024 11:22 AM [facility] Monocyte % 18.0(H) 3.0 - 11.0 % 02/06/2024 11:22 AM [facility] Eosinophil % 0.0 0.0 - 7.0 % 02/06/2024 11:22 AM [facility] Basophil % 0.0 0.0 - 1.6 % 02/06/2024 11:22 AM [facility] Immature Granulocytes % 0.2 0.0 - 1.0 % 02/06/2024 11:22 AM [facility] Neutrophil Absolute 2.22 1.60 - 7.50 x10E9/L 02/06/2024 11:22 AM [facility] Lymphocyte Absolute 1.09 1.00 - 4.40 x10E9/L 02/06/2024 11:22 AM [facility] Monocyte Absolute 0.73 0.15 - 1.00 x10E9/L 02/06/2024 11:22 AM [facility] Eosinophil Absolute 0.00 0.00 - 0.60 x10E9/L 02/06/2024 11:22 AM CDT [facility] Basophil Absolute 0.00 0.00 - 0.13 x10E9/L 02/06/2024 11:22 AM CDT [facility] NRBC 1.0(H) <=0.0 /100 WBC 02/06/2024 11:22 AM CDT [facility] Blood BLOOD SPECIMEN / Unknown Venipuncture / Unknown 02/06/2024 9:58 AM CDT 02/06/2024 10:13 AM CDT Britni Winston PA-C LAB - HEMATOLOGY ORD ERABLES Performing Organization Address City/[facility]/ZIP Co de Phone Number [address] [address], [facility] [phone] * MAGNESIUM BLOOD (02/06/2024 9:58 AM CDT) Magnesium 1.9 1.6 - 2.6 mg/dL 02/06/2024 10:49 AM T [facility] Blood BLOOD SPECIMEN / Unknown Venipuncture / Unknown 02/06/2024 9:58 AM CDT 02/06/2024 10:13 AM CDT Britni Winston PA-C LAB - CHEMISTRY ORDE RABQI Performing Organization Address City/[facility]/ZIP Co de Phone Number [address] [address], [place] [phone] * (ABNORMAL) COMPREHENSIVE METABOLIC PANEL (02/06/2024 9:58 AM CDT) BUN 7 7 - 26 mg/dL 02/06/2024 10:49 AM T [facility] Creatinine 0.58 0.56 - 0.96 mg/dL 02/06/2024 10:49 AM T [facility] Sodium 141 136 - 145 mmol/L 02/06/2024 10:49 AM T [facility] Potassium 3.4(L) 3.5 - 4.5 mmol/L 02/06/2024 10:49 AM T [facility] Chloride 111(H) 98 - 107 mmol/L 02/06/2024 10:49 AM [facility] CO2 21(L) 22 - 29 mmol/L 02/06/2024 10:49 AM [facility] Glucose 156(H) 70 - 115 mg/dL 02/06/2024 10:49 AM [facility] Calcium 9.6 8.4 - 10.2 mg/dL 02/06/2024 10:49 AM [facility] Protein Total 6.5 6.0 - 8.3 g/dL 02/06/2024 10:49 AM [facility] Albumin 3.3(L) 3.4 - 5.0 g/dL 02/06/2024 10:49 AM [facility] Bilirubin Total 0.4 0.2 - 1.2 mg/dL 02/06/2024 10:49 AM [facility] Alkaline Phosphatase 71 40 - 150 U/L 02/06/2024 10:49 AM [facility] ALT 24 5 - 55 U/L 02/06/2024 10:49 AM [facility] AST 13 5 - 34 U/L 02/06/2024 10:49 AM [facility] Anion Gap 9 6 - 16 02/06/2024 10:49 AM [facility] BUN/Creatinine Ratio 12 7 - 23 02/06/2024 10:49 AM [facility] Osmolality Calculated 293 275 - 295 mOsm/kg 02/06/2024 10:49 AM [facility] Albumin/Globulin Ratio 1.0(L) 1.1 - 2.3 02/06/2024 10:49 AM [facility] eGFR by CKD-EPI >90 >=90 mL/min/1.7 3 m2 02/06/2024 10:49 AM [facility] Blood BLOOD SPECIMEN / Unknown Venipuncture / Unknown 02/06/2024 9:58 AM [facility] 02/06/2024 10:13 AM [facility] Britni Winston PA-C LAB - CHEMISTRY JON NAIDU [facility] Organization Address City/State/ZIP Co de Phone Number [facility] [address] [place] [address], [facility] [phone] * (ABNORMAL) PHOSPHORUS BLOOD (02/06/2024 9:58 AM CDT) Phosphorus 2.8(L) 2.9 - 5.1 mg/dL 02/06/2024 10:49 AM CDT [facility] Blood BLOOD SPECIMEN / Unknown Venipuncture / Unknown 02/06/2024 9:58 AM CDT 02/06/2024 10:13 AM CDT Britni Winston PA-C LAB - CHEMISTRY ORDE ELYSIA [address] [address], [facility] [phone] * TYPE + SCREEN PANEL (02/02/2024 11:10 AM CDT) Antibody Screen NEG 12:17 PM CDT [facility] ABO Rh O POS 02/02/2024 12:17 PM CDT [facility] Blood Bank BLOOD SPECIMEN / Unknown Venipuncture / Unknown 02/02/2024 11:10 AM CDT 02/02/2024 11:39 AM CDT Britni Winston PA-C LAB - BLOOD BANK ORD ERABLES Performing Organization Address City/[facility]/ZIP Co de Phone Number [facility] [address] [place] [address], [facility] [phone] * URIC ACID BLOOD (02/02/2024 11:10 AM CDT) Uric Acid 5.3 2.6 - 6.0 mg/dL 02/02/2024 11:57 AM CDT [facility] Blood BLOOD SPECIMEN / Unknown Venipuncture / Unknown 02/02/2024 11:10 AM CDT 02/02/2024 11:31 AM CDT Britni Winston PA-C LAB - CHEMISTRY ORDAzul NAIDU [facility] [address] [place] [address], [facility] [phone] * LDH BLOOD (02/02/2024 11:10 AM CDT) [facility] LDH Total 222 125 - 243 Units/L 02/02/2024 11:57 AM [facility] Blood BLOOD SPECIMEN / Unknown Venipuncture / Unknown 02/02/2024 11:10 AM CDT 02/02/2024 11:31 AM CDT Britni Winston PA-C LAB - CHEMISTRY MANJULAE ELYSIA [place] [id number] [place] [address], [facility] [phone] * (ABNORMAL) CBC WITH DIFFERENTIAL (02/02/2024 11:10 AM CDT) [facility] WBC 3.9(L) 4.0 - 10.7 x10E9/L 02/02/2024 12:25 PM [facility] RBC Count 2.54(L) 3.90 - 5.20 x10E12/L 02/02/2024 12:25 PM [facility] Hemoglobin 7.4(L) 11.9 - 15.8 g/dL 02/02/2024 12:25 PM [facility] Hematocrit 21.1(L) 34.8 - 46.1 % 02/02/2024 12:25 PM [facility] MCV 83.1 80.0 - 98.0 fL 02/02/2024 12:25 PM [facility] MCH 29.1 26.7 - 33.6 pg 02/02/2024 12:25 PM [facility] MCHC 35.1 31.7 - 36.3 g/dL 02/02/2024 12:25 PM [facility] RDW-CV 14.6 11.3 - 14.8 % 02/02/2024 12:25 PM [facility] Platelet Count 37(L) 150 - 420 x10E9/L 02/02/2024 12:25 PM [facility] MPV 11.8(H) 7.8 - 11.4 fL 02/02/2024 12:25 PM T [facility] Preliminary Absolute Neutrophil 1.70 1.60 - 7.50 x10E9/L 02/02/2024 12:25 PM T [facility] Comment:Preliminary ANC pend ing manual confirmation NRBC 1.0(H) <=0.0 /100 WBC 02/02/2024 12:25 PM T [facility] Blood BLOOD SPECIMEN / Unknown Venipuncture / Unknown 02/02/2024 11:10 AM CDT 02/02/2024 11:31 AM CDT Britni Winston PA-C LAB - HEMATOLOGY ORD ERABLES Performing Organization Address City/[facility]/ZIP Co de Phone Number [address] [address], [facility] [phone] * MAGNESIUM BLOOD (02/02/2024 11:10 AM CDT) Magnesium 2.0 1.6 - 2.6 mg/dL 02/02/2024 11:57 AM T [facility] Blood BLOOD SPECIMEN / Unknown Venipuncture / Unknown 02/02/2024 11:10 AM CDT 02/02/2024 11:31 AM CDT Britni Winston PA-C LAB - CHEMISTRY ORDE RABQI [address] [address], [facility] [phone] * (ABNORMAL) COMPREHENSIVE METABOLIC PANEL (02/02/2024 11:10 AM CDT) BUN 9 7 - 26 mg/dL 02/02/2024 11:59 AM T [facility] Creatinine 0.66 0.56 - 0.96 mg/dL 02/02/2024 11:59 AM T [facility] Sodium 141 136 - 145 mmol/L 02/02/2024 11:59 AM T [facility] Potassium 3.6 3.5 - 4.5 mmol/L 02/02/2024 11:59 AM [facility] Chloride 108(H) 98 - 107 mmol/L 02/02/2024 11:59 AM [facility] CO2 21(L) 22 - 29 mmol/L 02/02/2024 11:59 AM [facility] Glucose 148(H) 70 - 115 mg/dL 02/02/2024 11:59 AM [facility] Calcium 9.9 8.4 - 10.2 mg/dL 02/02/2024 11:59 AM [facility] Protein Total 6.7 6.0 - 8.3 g/dL 02/02/2024 11:59 AM [facility] Albumin 3.5 3.4 - 5.0 g/dL 02/02/2024 11:59 AM [facility] Bilirubin Total 0.5 0.2 - 1.2 mg/dL 02/02/2024 11:59 AM [facility] Alkaline Phosphatase 72 40 - 150 U/L 02/02/2024 11:59 AM [facility] ALT 43 5 - 55 U/L 02/02/2024 11:59 AM [facility] AST 20 5 - 34 U/L 02/02/2024 11:59 AM [facility] Anion Gap 12 6 - 16 02/02/2024 11:59 AM [facility] BUN/Creatinine Ratio 14 7 - 23 02/02/2024 11:59 AM [facility] Osmolality Calculated 293 275 - 295 mOsm/kg 02/02/2024 11:59 AM [facility] Albumin/Globulin Ratio 1.1 1.1 - 2.3 02/02/2024 11:59 AM [facility] eGFR by CKD-EPI >90 >=90 mL/min/1.7 3 m2 02/02/2024 11:59 AM [facility] Blood BLOOD SPECIMEN / Unknown Venipuncture / Unknown 02/02/2024 11:10 AM CDT 02/02/2024 11:31 AM T Britni Winston PA-C LAB - CHEMISTRY ORDE RABLES Performing Organization Address City/[facility]/ZIP Co de Phone Number [facility] [address] [place] [address], [place] [phone] * PHOSPHORUS BLOOD (02/02/2024 11:10 AM CDT) Pathologist [facility] Phosphorus 3.0 2.9 - 5.1 mg/dL 02/02/2024 11:57 AM CDT [facility] Blood BLOOD SPECIMEN / Unknown Venipuncture / Unknown 02/02/2024 11:10 AM CDT 02/02/2024 11:31 AM CDT Britni Winston PA-C LAB - CHEMISTRY JON NAIDU Performing Organization Address City/[facility]/ZIP Co de Phone Number [address] [address], [place] [phone] * TYPE + SCREEN PANEL (01/30/2024 10:57 AM CDT) [facility] Antibody Screen NEG 11:48 AM CDT [facility] ABO Rh O POS 01/30/2024 11:48 AM CDT [facility] Blood Bank BLOOD SPECIMEN / Unknown Venipuncture / Unknown 01/30/2024 10:57 AM CDT 01/30/2024 11:02 AM CDT Britni Winston PA-C LAB - BLOOD BANK MANJULA HONG Performing Organization Address [facility]/ZIP Co de Phone Number [facility] [address] [place] [address], [place] [phone] * (ABNORMAL) CBC WITH DIFFERENTIAL (01/30/2024 10:57 AM CDT) Pathologist [facility] WBC 3.2(L) 4.0 - 10.7 x10E9/L 01/30/2024 12:03 PM CDT [facility] RBC Count 2.61(L) 3.90 - 5.20 x10E12/L 01/30/2024 12:03 PM CDT [facility] Hemoglobin 7.6(L) 11.9 - 15.8 g/dL 01/30/2024 12:03 PM [facility] Hematocrit 21.3(L) 34.8 - 46.1 % 01/30/2024 12:03 PM [facility] MCV 81.6 80.0 - 98.0 fL 01/30/2024 12:03 PM [facility] MCH 29.1 26.7 - 33.6 pg 01/30/2024 12:03 PM [facility] MCHC 35.7 31.7 - 36.3 g/dL 01/30/2024 12:03 PM [facility] RDW-CV 14.6 11.3 - 14.8 % 01/30/2024 12:03 PM [facility] Platelet Count 53(L) 150 - 420 x10E9/L 01/30/2024 12:03 PM [facility] MPV 11.0 7.8 - 11.4 fL 01/30/2024 12:03 PM [facility] Preliminary Absolute Neutrophil 0.79(L) 1.60 - 7.50 x10E9/L 01/30/2024 12:03 PM [facility] Comment:Preliminary ANC pend ing manual confirmation NRBC 1.6(H) <=0.0 /100 WBC 01/30/2024 12:03 PM [facility] Blood BLOOD SPECIMEN / Unknown Venipuncture / Unknown 01/30/2024 10:57 AM CDT 01/30/2024 11:01 AM CDT Britni Winston PA-C LAB - HEMATOLOGY ORD ERABLES [facility] [address] [place] [address], [facility] [phone] * MAGNESIUM BLOOD (01/30/2024 10:57 AM CDT) Magnesium 2.0 1.6 - 2.6 mg/dL 01/30/2024 11:33 AM [facility] Blood BLOOD SPECIMEN / Unknown Venipuncture / Unknown 01/30/2024 10:57 AM CDT 01/30/2024 11:01 AM CDT Britni Winston PA-C LAB - CHEMISTRY JON NAIDU [facility] [address] [place] [address], [facility] [phone] * (ABNORMAL) COMPREHENSIVE METABOLIC PANEL (01/30/2024 10:57 AM CDT) BUN 9 7 - 26 mg/dL 01/30/2024 11:34 AM [facility] Creatinine 0.59 0.56 - 0.96 mg/dL 01/30/2024 11:34 AM [facility] Sodium 139 136 - 145 mmol/L 01/30/2024 11:34 AM [facility] Potassium 3.6 3.5 - 4.5 mmol/L 01/30/2024 11:34 AM [facility] Chloride 110(H) 98 - 107 mmol/L 01/30/2024 11:34 AM [facility] [facility] CO2 21(L) 22 - 29 mmol/L 01/30/2024 11:34 AM [facility] Glucose 152(H) 70 - 115 mg/dL 01/30/2024 11:34 AM [facility] Calcium 9.4 8.4 - 10.2 mg/dL 01/30/2024 11:34 AM [facility] Protein Total 6.4 6.0 - 8.3 g/dL 01/30/2024 11:34 AM [facility] Albumin 3.5 3.4 - 5.0 g/dL 01/30/2024 11:34 AM [facility] Bilirubin Total 0.4 0.2 - 1.2 mg/dL 01/30/2024 11:34 AM [facility] Alkaline Phosphatase 66 40 - 150 U/L 01/30/2024 11:34 AM [facility] ALT 63(H) 5 - 55 U/L 01/30/2024 11:34 AM [facility] AST 40(H) 5 - 34 U/L 01/30/2024 11:34 AM CDT [facility] Anion Gap 8 6 - 16 01/30/2024 11:34 AM T [facility] BUN/Creatinine Ratio 15 7 - 23 01/30/2024 11:34 AM T [facility] Osmolality Calculated 290 275 - 295 mOsm/kg 01/30/2024 11:34 AM [facility] Albumin/Globulin Ratio 1.2 1.1 - 2.3 01/30/2024 11:34 AM [facility] eGFR by CKD-EPI >90 >=90 mL/min/1.7 3 m2 01/30/2024 11:34 AM [facility] Blood BLOOD SPECIMEN / Unknown Venipuncture / Unknown 01/30/2024 10:57 AM CDT 01/30/2024 11:01 AM CDT Britni Winston PA-C LAB - CHEMISTRY ORDAzul NAIDU Performing Organization Address City/[facility]/ZIP Co de Phone Number [address] [address], [facility] [phone] * PHOSPHORUS BLOOD (01/30/2024 10:57 AM CDT) Phosphorus 2.9 2.9 - 5.1 mg/dL 01/30/2024 11:33 AM T [facility] Blood BLOOD SPECIMEN / Unknown Venipuncture / Unknown 01/30/2024 10:57 AM CDT 01/30/2024 11:01 AM CDT Britni Winston PA-C LAB - CHEMISTRY ORDAzul NAIDU [address] [address], [place] [phone] * TYPE + SCREEN PANEL (01/28/2024 9:44 AM CDT) Antibody Screen NEG 10:47 AM CDT [facility] ABO Rh O POS 01/28/2024 10:47 AM CDT [facility] Blood Bank BLOOD SPECIMEN / Unknown Venipuncture / Unknown 01/28/2024 9:44 AM CDT 01/28/2024 10:01 AM CDT Britni Winston PA-C LAB - BLOOD BANK ORD GELY Performing Organization Address [facility]/ZIP Co de Phone Number [facility] [address] [place] [address], [place] [phone] * URIC ACID BLOOD (01/28/2024 9:44 AM CDT) Uric Acid 4.6 2.6 - 6.0 mg/dL 01/28/2024 10:31 AM CDT [facility] Blood BLOOD SPECIMEN / Unknown Venipuncture / Unknown 01/28/2024 9:44 AM CDT 01/28/2024 9:58 AM CDT Britni Winston PA-C LAB - CHEMISTRY JON NAIDU Performing Organization Address [facility]/ZIP Co de Phone Number [address] [address], [place] [phone] * (ABNORMAL) LDH BLOOD (01/28/2024 9:44 AM CDT) [facility] LDH Total 280(H) 125 - 243 Units/L 01/28/2024 10:31 AM CDT [facility] Blood BLOOD SPECIMEN / Unknown Venipuncture / Unknown 01/28/2024 9:44 AM CDT 01/28/2024 9:58 AM CDT Britni Winston PA-C LAB - CHEMISTRY JON NAIDU Performing Organization Address [facility]/ZIP Co de Phone Number [address] [address], [place] [phone] * (ABNORMAL) CBC WITH DIFFERENTIAL (01/28/2024 9:44 AM CDT) Pathologist [facility] WBC 3.1(L) 4.0 - 10.7 x10E9/L 01/28/2024 10:57 AM [facility] RBC Count 2.71(L) 3.90 - 5.20 x10E12/L 01/28/2024 10:57 AM [facility] Hemoglobin 7.7(L) 11.9 - 15.8 g/dL 01/28/2024 10:57 AM [facility] Hematocrit 22.0(L) 34.8 - 46.1 % 01/28/2024 10:57 AM [facility] MCV 81.2 80.0 - 98.0 fL 01/28/2024 10:57 AM [facility] MCH 28.4 26.7 - 33.6 pg 01/28/2024 10:57 AM [facility] MCHC 35.0 31.7 - 36.3 g/dL 01/28/2024 10:57 AM [facility] RDW-CV 14.5 11.3 - 14.8 % 01/28/2024 10:57 AM [facility] Platelet Count 30(L) 150 - 420 x10E9/L 01/28/2024 10:57 AM [facility] MPV 10.9 7.8 - 11.4 fL 01/28/2024 10:57 AM [facility] Preliminary Absolute Neutrophil 0.65(L) 1.60 - 7.50 x10E9/L 01/28/2024 10:57 AM [facility] Comment:Preliminary ANC pend ing manual confirmation NRBC 0.6(H) <=0.0 /100 WBC 01/28/2024 10:57 AM [facility] Blood BLOOD SPECIMEN / Unknown Venipuncture / Unknown 01/28/2024 9:44 AM CDT 01/28/2024 9:58 AM CDT Britni Winston PA-C LAB - HEMATOLOGY ORD ERABLES [facility] [address] [place] [address], [facility] [phone] * MAGNESIUM BLOOD (01/28/2024 9:44 AM CDT) Magnesium 2.0 1.6 - 2.6 mg/dL 01/28/2024 10:31 AM [facility] Blood BLOOD SPECIMEN / Unknown Venipuncture / Unknown 01/28/2024 9:44 AM CDT 01/28/2024 9:58 AM CDT Britni Winston PA-C LAB - CHEMISTRY JON NAIDU Performing Organization Address [facility] Co de Phone Number [facility] [address] [place] [address] [phone] * (ABNORMAL) COMPREHENSIVE METABOLIC PANEL (01/28/2024 9:44 AM CDT) BUN 8 7 - 26 mg/dL 01/28/2024 10:31 AM [facility] Creatinine 0.65 0.56 - 0.96 mg/dL 01/28/2024 10:31 AM [facility] Sodium 141 136 - 145 mmol/L 01/28/2024 10:31 AM [facility] Potassium 3.6 3.5 - 4.5 mmol/L 01/28/2024 10:31 AM [facility] Chloride 111(H) 98 - 107 mmol/L 01/28/2024 10:31 AM [facility] CO2 22 22 - 29 mmol/L 01/28/2024 10:31 AM [facility] Glucose 162(H) 70 - 115 mg/dL 01/28/2024 10:31 AM [facility] Calcium 9.6 8.4 - 10.2 mg/dL 01/28/2024 10:31 AM [facility] Protein Total 6.4 6.0 - 8.3 g/dL 01/28/2024 10:31 AM [facility] Albumin 3.4 3.4 - 5.0 g/dL 01/28/2024 10:31 AM [facility] Bilirubin Total 0.3 0.2 - 1.2 mg/dL 01/28/2024 10:31 AM [facility] Alkaline Phosphatase 65 40 - 150 U/L 01/28/2024 10:31 AM [facility] ALT 71(H) 5 - 55 U/L 01/28/2024 10:31 AM [facility] AST 52(H) 5 - 34 U/L 01/28/2024 10:31 AM [facility] Anion Gap 8 6 - 16 01/28/2024 10:31 AM [facility] BUN/Creatinine Ratio 12 7 - 23 01/28/2024 10:31 AM [facility] Osmolality Calculated 294 275 - 295 mOsm/kg 01/28/2024 10:31 AM [facility] Albumin/Globulin Ratio 1.1 1.1 - 2.3 01/28/2024 10:31 AM [facility] eGFR by CKD-EPI >90 >=90 mL/min/1.7 3 m2 01/28/2024 10:31 AM [facility] Blood BLOOD SPECIMEN / Unknown Venipuncture / Unknown 01/28/2024 9:44 AM CDT 01/28/2024 9:58 AM CDT Britni Winston PA-C LAB - CHEMISTRY JON NAIDU [address] [address], [facility] [phone] * PHOSPHORUS BLOOD (01/28/2024 9:44 AM CDT) Phosphorus 2.9 2.9 - 5.1 mg/dL 01/28/2024 10:31 AM [facility] Blood BLOOD SPECIMEN / Unknown Venipuncture / Unknown 01/28/2024 9:44 AM CDT 01/28/2024 9:58 AM CDT Britni Winston PA-C LAB - CHEMISTRY ORDAzul NAIDU [address] [address], [place] [phone] * TYPE + SCREEN PANEL (01/26/2024 12:39 PM CDT) Antibody Screen NEG 1:28 PM CDT [facility] ABO Rh O POS 01/26/2024 1:28 PM CDT [facility] Blood Bank BLOOD SPECIMEN / Unknown Venipuncture / Unknown 01/26/2024 12:39 PM CDT 01/26/2024 12:51 PM CDT Britni Winston PA-C LAB - BLOOD BANK ORD GELY Performing Organization Address City/[facility]/ZIP Co de Phone Number [facility] [address] [place] [address], [place] [phone] * URIC ACID BLOOD (01/26/2024 12:39 PM CDT) Uric Acid 4.1 2.6 - 6.0 mg/dL 01/26/2024 1:17 PM CDT [facility] Blood BLOOD SPECIMEN / Unknown Venipuncture / Unknown 01/26/2024 12:39 PM CDT 01/26/2024 12:50 PM CDT Britni Winston PA-C LAB - CHEMISTRY JON NAIDU Performing Organization Address [facility]/ZIP Co de Phone Number [address] [address], [place] [phone] * (ABNORMAL) LDH BLOOD (01/26/2024 12:39 PM CDT) LDH Total 290(H) 125 - 243 Units/L 01/26/2024 1:17 PM CDT [facility] Blood BLOOD SPECIMEN / Unknown Venipuncture / Unknown 01/26/2024 12:39 PM CDT 01/26/2024 12:50 PM CDT Britni Winston PA-C LAB - CHEMISTRY MANJULAE ELYSIA Performing Organization Address City/[facility]/ZIP Co de Phone Number [address] [address], [place] [phone] * (ABNORMAL) CBC WITH DIFFERENTIAL (01/26/2024 12:39 PM CDT) WBC 3.5(L) 4.0 - 10.7 x10E9/L 01/26/2024 [...] 1.60 - 7.50 x10E9/L 01/26/2024 1:55 PM [facility] Comment:Preliminary ANC pend ing manual confirmation Blood BLOOD SPECIMEN / Unknown Venipuncture / Unknown 01/26/2024 12:39 PM CDT 01/26/2024 12:50 PM CDT Britni Winston PA-C LAB - HEMATOLOGY ORD ERABLES [facility] [address] [place] [address], [facility] [phone] * MAGNESIUM BLOOD (01/26/2024 12:39 PM CDT) Pathologist [facility] Magnesium 1.8 1.6 - 2.6 mg/dL 01/26/2024 1:17 PM [facility] Blood BLOOD SPECIMEN / Unknown Venipuncture / Unknown 01/26/2024 12:39 PM CDT 01/26/2024 12:50 PM CDT Britni Winston PA-C LAB - CHEMISTRY JON NAIDU [facility] [address] [place] [address], [facility] [phone] * (ABNORMAL) COMPREHENSIVE METABOLIC PANEL (01/26/2024 12:39 PM CDT) Pathologist [facility] BUN 9 7 - 26 mg/dL 01/26/2024 1:17 PM [facility] Creatinine 0.58 0.56 - 0.96 mg/dL 01/26/2024 1:17 PM [facility] Sodium 142 136 - 145 mmol/L 01/26/2024 1:17 PM [facility] Potassium 3.4(L) 3.5 - 4.5 mmol/L 01/26/2024 1:17 PM [facility] Chloride 112(H) 98 - 107 mmol/L 01/26/2024 1:17 PM [facility] CO2 21(L) 22 - 29 mmol/L 01/26/2024 [...] 40 - 150 U/L 01/26/2024 1:17 PM CDT [facility] ALT 57(H) 5 - 55 U/L 01/26/2024 1:17 PM T [facility] AST 48(H) 5 - 34 U/L 01/26/2024 1:17 PM T [facility] Anion Gap 9 6 - 16 01/26/2024 1:17 PM T [facility] BUN/Creatinine Ratio 16 7 - 23 01/26/2024 1:17 PM T [facility] Osmolality Calculated 296(H) 275 - 295 mOsm/kg 01/26/2024 1:17 PM T [facility] Albumin/Globulin Ratio 1.1 1.1 - 2.3 01/26/2024 1:17 PM T [facility] eGFR by CKD-EPI >90 >=90 mL/min/1.7 3 m2 01/26/2024 1:17 PM T [facility] Blood BLOOD SPECIMEN / Unknown Venipuncture / Unknown 01/26/2024 12:39 PM CDT 01/26/2024 12:50 PM CDT Britni Winston PA-C LAB - CHEMISTRY ORDAzul NAIDU [address] [address], [facility] [phone] * (ABNORMAL) PHOSPHORUS BLOOD (01/26/2024 12:39 PM CDT) Phosphorus 2.4(L) 2.9 - 5.1 mg/dL 01/26/2024 1:17 PM CDT [facility] Blood BLOOD SPECIMEN / Unknown Venipuncture / Unknown 01/26/2024 12:39 PM CDT 01/26/2024 12:50 PM CDT Britni Winston PA-C LAB - CHEMISTRY ORDAzul NAIDU [address] [address], [place] [phone] * TYPE + SCREEN PANEL (01/19/2024 9:21 AM CDT) Antibody Screen NEG 10:29 AM CDT [facility] ABO Rh O POS 01/19/2024 10:29 AM CDT [facility] Blood Bank BLOOD SPECIMEN / Unknown Venipuncture / Unknown 01/19/2024 9:21 AM CDT 01/19/2024 9:41 AM CDT Britni Winston PA-C LAB - BLOOD BANK ORD ERABLES [facility] [address] [place] [address], [place] [phone] * URIC ACID BLOOD (01/19/2024 9:21 AM CDT) Uric Acid 4.2 2.6 - 6.0 mg/dL 01/19/2024 10:09 AM CDT [facility] Blood BLOOD SPECIMEN / Unknown Venipuncture / Unknown 01/19/2024 9:21 AM CDT 01/19/2024 9:43 AM CDT Britni Winston PA-C LAB - CHEMISTRY ORDE RABQI [address] [address], [place] [phone] * LDH BLOOD (01/19/2024 9:21 AM CDT) LDH Total 157 125 - 243 Units/L 01/19/2024 10:09 AM CDT [facility] Blood BLOOD SPECIMEN / Unknown Venipuncture / Unknown 01/19/2024 9:21 AM CDT 01/19/2024 9:43 AM CDT Britni Winston PA-C LAB - CHEMISTRY ORDE RABQI [address] [address], [place] [phone] * (ABNORMAL) CBC WITH DIFFERENTIAL (01/19/2024 9:21 AM [facility]) WBC 0.4(LL) 4.0 - 10.7 x10E9/L 01/19/2024 10:51 AM [facility] Comment:No Manual Differenti al performed. WBC count < 0.5 RBC Count 2.39(L) 3.90 - 5.20 x10E12/L 01/19/2024 10:51 AM [facility] Hemoglobin 6.7(L) 11.9 - 15.8 g/dL 01/19/2024 10:51 AM [facility] Hematocrit 18.6(L) 34.8 - 46.1 % 01/19/2024 10:51 AM [facility] MCV 77.8(L) 80.0 - 98.0 fL 01/19/2024 10:51 AM [facility] MCH 28.0 26.7 - 33.6 pg 01/19/2024 10:51 AM [facility] MCHC 36.0 31.7 - 36.3 g/dL 01/19/2024 10:51 AM [facility] RDW-CV 13.4 11.3 - 14.8 % 01/19/2024 10:51 AM [facility] Platelet Count 10(LL) 150 - 420 x10E9/L 01/19/2024 10:51 AM [facility] MPV 9.5 7.8 - 11.4 fL 01/19/2024 10:51 AM [facility] Preliminary Absolute Neutrophil 01/19/2024 10:51 AM [facility] Blood BLOOD SPECIMEN / Unknown Venipuncture / Unknown 01/19/2024 9:21 AM CDT 01/19/2024 9:43 AM T Britni Winston PA-C LAB - HEMATOLOGY ORD ERABLES [facility] [address] [place] [address], [facility] [phone] * MAGNESIUM BLOOD (01/19/2024 9:21 AM CDT) Magnesium 1.8 1.6 - 2.6 mg/dL 01/19/2024 10:09 AM [facility] Blood BLOOD SPECIMEN / Unknown Venipuncture / Unknown 01/19/2024 9:21 AM CDT 01/19/2024 9:43 AM CDT Britni Winston PA-C LAB - CHEMISTRY JON NAIDU [facility] [address] [place] [address], [facility] [phone] * (ABNORMAL) COMPREHENSIVE METABOLIC PANEL (01/19/2024 9:21 AM CDT) BUN 10 7 - 26 mg/dL 01/19/2024 10:09 AM [facility] Creatinine 0.66 0.56 - 0.96 mg/dL 01/19/2024 10:09 AM [facility] Sodium 136 136 - 145 mmol/L 01/19/2024 10:09 AM [facility] Potassium 4.0 3.5 - 4.5 mmol/L 01/19/2024 10:09 AM [facility] Chloride 106 98 - 107 mmol/L 01/19/2024 10:09 AM [facility] CO2 20(L) 22 - 29 mmol/L 01/19/2024 10:09 AM [facility] Glucose 201(H) 70 - 115 mg/dL 01/19/2024 10:09 AM [facility] Calcium 9.8 8.4 - 10.2 mg/dL 01/19/2024 10:09 AM [facility] Protein Total 6.9 6.0 - 8.3 g/dL 01/19/2024 10:09 AM [facility] Albumin 3.2(L) 3.4 - 5.0 g/dL 01/19/2024 10:09 AM [facility] Bilirubin Total 0.5 0.2 - 1.2 mg/dL 01/19/2024 10:09 AM [facility] Alkaline Phosphatase 69 40 - 150 U/L 01/19/2024 10:09 AM [facility] ALT 14 5 - 55 U/L 01/19/2024 10:09 AM [facility] AST 9 5 - 34 U/L 01/19/2024 10:09 AM [facility] Anion Gap 10 6 - 16 01/19/2024 10:09 AM [facility] BUN/Creatinine Ratio 15 7 - 23 01/19/2024 10:09 AM [facility] Osmolality Calculated 287 275 - 295 mOsm/kg 01/19/2024 10:09 AM [facility] Albumin/Globulin Ratio 0.9(L) 1.1 - 2.3 01/19/2024 10:09 AM [facility] eGFR by CKD-EPI >90 >=90 mL/min/1.7 3 m2 01/19/2024 10:09 AM [facility] Blood BLOOD SPECIMEN / Unknown Venipuncture / Unknown 01/19/2024 9:21 AM CDT 01/19/2024 9:43 AM CDT Britni Winston PA-C LAB - CHEMISTRY JON NAIDU [address] [address], [facility] [phone] * (ABNORMAL) PHOSPHORUS BLOOD (01/19/2024 9:21 AM CDT) Phosphorus 2.6(L) 2.9 - 5.1 mg/dL 01/19/2024 10:09 AM [facility] Blood BLOOD SPECIMEN / Unknown Venipuncture / Unknown 01/19/2024 9:21 AM CDT 01/19/2024 9:43 AM CDT Britni Winston PA-C LAB - CHEMISTRY JON NAIDU [address] [address], [place] [phone] * TYPE + SCREEN PANEL (01/16/2024 10:28 AM CDT) Antibody Screen NEG 11:38 AM CDT [facility] ABO Rh O POS 01/16/2024 11:38 AM CDT [facility] Blood Bank BLOOD SPECIMEN / Unknown Venipuncture / Unknown 01/16/2024 10:28 AM CDT 01/16/2024 10:41 AM CDT Britni Winston PA-C LAB - BLOOD BANK ORD ERABLES [facility] [address] [place] [address], [place] [phone] * URIC ACID BLOOD (01/16/2024 10:28 AM CDT) Uric Acid 3.7 2.6 - 6.0 mg/dL 01/16/2024 11:09 AM CDT [facility] Blood BLOOD SPECIMEN / Unknown Venipuncture / Unknown 01/16/2024 10:28 AM CDT 01/16/2024 10:40 AM CDT Britni Winston PA-C LAB - CHEMISTRY ORDE RABQI [address] [address], [place] [phone] * LDH BLOOD (01/16/2024 10:28 AM CDT) LDH Total 165 125 - 243 Units/L 01/16/2024 11:09 AM CDT [facility] Blood BLOOD SPECIMEN / Unknown Venipuncture / Unknown 01/16/2024 10:28 AM CDT 01/16/2024 10:40 AM CDT Britni Winston PA-C LAB - CHEMISTRY ORDE RABQI [address] [address], [place] [phone] * (ABNORMAL) CBC WITH DIFFERENTIAL (01/16/2024 10:28 AM [facility]) WBC 0.2(LL) 4.0 - 10.7 x10E9/L 01/16/2024 11:27 AM [facility] Comment:No Manual Differenti al performed. WBC count < 0.5 RBC Count 2.63(L) 3.90 - 5.20 x10E12/L 01/16/2024 11:27 AM [facility] Hemoglobin 7.4(L) 11.9 - 15.8 g/dL 01/16/2024 11:27 AM [facility] Hematocrit 20.4(L) 34.8 - 46.1 % 01/16/2024 11:27 AM [facility] MCV 77.6(L) 80.0 - 98.0 fL 01/16/2024 11:27 AM [facility] MCH 28.1 26.7 - 33.6 pg 01/16/2024 11:27 AM [facility] MCHC 36.3 31.7 - 36.3 g/dL 01/16/2024 11:27 AM [facility] RDW-CV 13.6 11.3 - 14.8 % 01/16/2024 11:27 AM [facility] Platelet Count 17(LL) 150 - 420 x10E9/L 01/16/2024 11:27 AM [facility] MPV 10.0 7.8 - 11.4 fL 01/16/2024 11:27 AM [facility] Preliminary Absolute Neutrophil 01/16/2024 11:27 AM [facility] Blood BLOOD SPECIMEN / Unknown Venipuncture / Unknown 01/16/2024 10:28 AM CDT 01/16/2024 10:40 AM [facility] Britni Winston PA-C LAB - HEMATOLOGY ORD ERABLES [facility] [address] [place] [address], [facility] [phone] * MAGNESIUM BLOOD (01/16/2024 10:28 AM CDT) Magnesium 1.8 1.6 - 2.6 mg/dL 01/16/2024 11:09 AM [facility] Blood BLOOD SPECIMEN / Unknown Venipuncture / Unknown 01/16/2024 10:28 AM CDT 01/16/2024 10:40 AM CDT Britni Winston PA-C LAB - CHEMISTRY JON NAIDU [facility] [address] [place] [address], [facility] [phone] * (ABNORMAL) COMPREHENSIVE METABOLIC PANEL (01/16/2024 10:28 AM CDT) BUN 8 7 - 26 mg/dL 01/16/2024 11:09 AM [facility] Creatinine 0.63 0.56 - 0.96 mg/dL 01/16/2024 11:09 AM [facility] Sodium 141 136 - 145 mmol/L 01/16/2024 11:09 AM [facility] Potassium 3.8 3.5 - 4.5 mmol/L 01/16/2024 11:09 AM [facility] Chloride 111(H) 98 - 107 mmol/L 01/16/2024 11:09 AM [facility] CO2 19(L) 22 - 29 mmol/L 01/16/2024 11:09 AM [facility] Glucose 181(H) 70 - 115 mg/dL 01/16/2024 11:09 AM [facility] Calcium 9.7 8.4 - 10.2 mg/dL 01/16/2024 11:09 AM [facility] Protein Total 6.8 6.0 - 8.3 g/dL 01/16/2024 11:09 AM [facility] Albumin 3.5 3.4 - 5.0 g/dL 01/16/2024 11:09 AM [facility] Bilirubin Total 0.5 0.2 - 1.2 mg/dL 01/16/2024 11:09 AM [facility] Alkaline Phosphatase 82 40 - 150 U/L 01/16/2024 11:09 AM [facility] ALT 21 5 - 55 U/L 01/16/2024 11:09 AM [facility] AST 11 5 - 34 U/L 01/16/2024 11:09 AM [facility] Anion Gap 11 6 - 16 01/16/2024 11:09 AM [facility] BUN/Creatinine Ratio 13 7 - 23 01/16/2024 11:09 AM [facility] Osmolality Calculated 295 275 - 295 mOsm/kg 01/16/2024 11:09 AM [facility] Albumin/Globulin Ratio 1.1 1.1 - 2.3 01/16/2024 11:09 AM [facility] eGFR by CKD-EPI >90 >=90 mL/min/1.7 3 m2 01/16/2024 11:09 AM [facility] Blood BLOOD SPECIMEN / Unknown Venipuncture / Unknown 01/16/2024 10:28 AM CDT 01/16/2024 10:40 AM CDT Britni Winston PA-C LAB - CHEMISTRY JON NAIDU [address] [address], [place] [phone] * PHOSPHORUS BLOOD (01/16/2024 10:28 AM CDT) Phosphorus 3.2 2.9 - 5.1 mg/dL 01/16/2024 11:09 AM [facility] Blood BLOOD SPECIMEN / Unknown Venipuncture / Unknown 01/16/2024 10:28 AM CDT 01/16/2024 10:40 AM CDT Britni Winston PA-C LAB - CHEMISTRY ORDAzul NAIDU [address] [address], [place] [phone] * TYPE + SCREEN PANEL (01/14/2024 10:36 AM CDT) Antibody Screen NEG 11:36 AM CDT [facility] ABO Rh O POS 01/14/2024 11:36 AM CDT [facility] Blood Bank BLOOD SPECIMEN / Unknown Venipuncture / Unknown 01/14/2024 10:36 AM CDT 01/14/2024 10:52 AM CDT Britni Winston PA-C LAB - BLOOD BANK ORD ERABLES [facility] [address] [place] [address], [place] [phone] * URIC ACID BLOOD (01/14/2024 10:36 AM CDT) Uric Acid 3.9 2.6 - 6.0 mg/dL 01/14/2024 11:14 AM CDT [facility] Blood BLOOD SPECIMEN / Unknown Venipuncture / Unknown 01/14/2024 10:36 AM CDT 01/14/2024 10:50 AM CDT Britni Winston PA-C LAB - CHEMISTRY ORDE RABQI Performing Organization Address City/[facility]/ZIP Co de Phone Number [address] [address], [place] [phone] * LDH BLOOD (01/14/2024 10:36 AM CDT) Pathologist [facility] LDH Total 169 125 - 243 Units/L 01/14/2024 11:14 AM CDT [facility] Blood BLOOD SPECIMEN / Unknown Venipuncture / Unknown 01/14/2024 10:36 AM CDT 01/14/2024 10:50 AM CDT Britni Winston PA-C LAB - CHEMISTRY ORDE RABQI Performing Organization Address City/[facility]/ZIP Co de Phone Number [address] [address], [place] [phone] * (ABNORMAL) CBC WITH DIFFERENTIAL (01/14/2024 10:36 AM [facility]) WBC 0.2(LL) 4.0 - 10.7 x10E9/L 01/14/2024 11:40 AM [facility] Comment:No Manual Differenti al performed. WBC count < 0.5 RBC Count 2.77(L) 3.90 - 5.20 x10E12/L 01/14/2024 11:40 AM [facility] Hemoglobin 7.9(L) 11.9 - 15.8 g/dL 01/14/2024 11:40 AM [facility] Hematocrit 21.6(L) 34.8 - 46.1 % 01/14/2024 11:40 AM [facility] MCV 78.0(L) 80.0 - 98.0 fL 01/14/2024 11:40 AM [facility] MCH 28.5 26.7 - 33.6 pg 01/14/2024 11:40 AM [facility] MCHC 36.6(H) 31.7 - 36.3 g/dL 01/14/2024 11:40 AM [facility] RDW-CV 13.5 11.3 - 14.8 % 01/14/2024 11:40 AM [facility] Platelet Count 7(LL) 150 - 420 x10E9/L 01/14/2024 11:40 AM [facility] MPV 11.4 7.8 - 11.4 fL 01/14/2024 11:40 AM [facility] Preliminary Absolute Neutrophil 01/14/2024 11:40 AM [facility] Blood BLOOD SPECIMEN / Unknown Venipuncture / Unknown 01/14/2024 10:36 AM CDT 01/14/2024 10:50 AM T Britni Winston PA-C LAB - HEMATOLOGY ORD ERABLES [facility] [address] [place] [address], [facility] [phone] * MAGNESIUM BLOOD (01/14/2024 10:36 AM CDT) Magnesium 1.9 1.6 - 2.6 mg/dL 01/14/2024 11:14 AM [facility] Blood BLOOD SPECIMEN / Unknown Venipuncture / Unknown 01/14/2024 10:36 AM CDT 01/14/2024 10:50 AM CDT Britni Winston PA-C LAB - CHEMISTRY JON NAIDU [facility] [address] [place] [address], [facility] [phone] * (ABNORMAL) COMPREHENSIVE METABOLIC PANEL (01/14/2024 10:36 AM CDT) BUN 13 7 - 26 mg/dL 01/14/2024 11:14 AM [facility] Creatinine 0.67 0.56 - 0.96 mg/dL 01/14/2024 11:14 AM [facility] Sodium 140 136 - 145 mmol/L 01/14/2024 11:14 AM [facility] Potassium 3.8 3.5 - 4.5 mmol/L 01/14/2024 11:14 AM [facility] Chloride 110(H) 98 - 107 mmol/L 01/14/2024 11:14 AM [facility] CO2 21(L) 22 - 29 mmol/L 01/14/2024 11:14 AM [facility] Glucose 200(H) 70 - 115 mg/dL 01/14/2024 11:14 AM [facility] Calcium 10.2 8.4 - 10.2 mg/dL 01/14/2024 11:14 AM [facility] Protein Total 6.8 6.0 - 8.3 g/dL 01/14/2024 11:14 AM [facility] Albumin 3.6 3.4 - 5.0 g/dL 01/14/2024 11:14 AM [facility] Bilirubin Total 0.5 0.2 - 1.2 mg/dL 01/14/2024 11:14 AM [facility] Alkaline Phosphatase 83 40 - 150 U/L 01/14/2024 11:14 AM [facility] ALT 21 5 - 55 U/L 01/14/2024 11:14 AM [facility] AST 11 5 - 34 U/L 01/14/2024 11:14 AM [facility] Anion Gap 9 6 - 16 01/14/2024 11:14 AM [facility] BUN/Creatinine Ratio 19 7 - 23 01/14/2024 11:14 AM [facility] Osmolality Calculated 296(H) 275 - 295 mOsm/kg 01/14/2024 11:14 AM [facility] Albumin/Globulin Ratio 1.1 1.1 - 2.3 01/14/2024 11:14 AM [facility] eGFR by CKD-EPI >90 >=90 mL/min/1.7 3 m2 01/14/2024 11:14 AM [facility] Blood BLOOD SPECIMEN / Unknown Venipuncture / Unknown 01/14/2024 10:36 AM CDT 01/14/2024 10:50 AM CDT Britni Winston PA-C LAB - CHEMISTRY ORDAzul NAIDU [address] [address], [facility] [phone] * PHOSPHORUS BLOOD (01/14/2024 10:36 AM CDT) Phosphorus 4.0 2.9 - 5.1 mg/dL 01/14/2024 11:14 AM T [facility] Blood BLOOD SPECIMEN / Unknown Venipuncture / Unknown 01/14/2024 10:36 AM CDT 01/14/2024 10:50 AM CDT Britni Winston PA-C LAB - CHEMISTRY ORDAzul NAIDU [address] [address], [place] [phone] * TYPE + SCREEN PANEL (01/12/2024 10:22 AM CDT) Antibody Screen NEG 11:16 AM CDT [facility] ABO Rh O POS 01/12/2024 11:16 AM CDT [facility] Blood Bank BLOOD SPECIMEN / Unknown Venipuncture / Unknown 01/12/2024 10:22 AM CDT 01/12/2024 10:31 AM CDT Britni Winston PA-C LAB - BLOOD BANK ORD ERABLES [facility] [address] [place] [address], [place] [phone] * URIC ACID BLOOD (01/12/2024 10:22 AM CDT) Pathologist [facility] Uric Acid 3.7 2.6 - 6.0 mg/dL 01/12/2024 10:57 AM CDT [facility] Blood BLOOD SPECIMEN / Unknown Venipuncture / Unknown 01/12/2024 10:22 AM CDT 01/12/2024 10:28 AM CDT Britni Winston PA-C LAB - CHEMISTRY ORDE RABQI Performing Organization Address City/[facility]/ZIP Co de Phone Number [address] [address], [place] [phone] * LDH BLOOD (01/12/2024 10:22 AM CDT) Pathologist [facility] LDH Total 180 125 - 243 Units/L 01/12/2024 10:57 AM CDT [facility] Blood BLOOD SPECIMEN / Unknown Venipuncture / Unknown 01/12/2024 10:22 AM CDT 01/12/2024 10:28 AM CDT Britni Winston PA-C LAB - CHEMISTRY ORDE RABQI Performing Organization Address City/[facility]/ZIP Co de Phone Number [address] [address], [place] [phone] * (ABNORMAL) CBC WITH DIFFERENTIAL (01/12/2024 10:22 AM CDT) WBC 0.2(LL) 4.0 - 10.7 x10E9/L 01/12/2024 11:18 AM [facility] Comment:No differential repo rted. WBC count <0.5 RBC Count 2.44(L) 3.90 - 5.20 x10E12/L 01/12/2024 11:18 AM [facility] Hemoglobin 6.8(L) 11.9 - 15.8 g/dL 01/12/2024 11:18 AM [facility] Hematocrit 18.9(L) 34.8 - 46.1 % 01/12/2024 11:18 AM [facility] MCV 77.5(L) 80.0 - 98.0 fL 01/12/2024 11:18 AM [facility] MCH 27.9 26.7 - 33.6 pg 01/12/2024 11:18 AM [facility] MCHC 36.0 31.7 - 36.3 g/dL 01/12/2024 11:18 AM [facility] RDW-CV 13.0 11.3 - 14.8 % 01/12/2024 11:18 AM [facility] Platelet Count 22(L) 150 - 420 x10E9/L 01/12/2024 11:18 AM [facility] Preliminary Absolute Neutrophil 01/12/2024 11:18 AM [facility] Comment:This is a corrected result. Previous result was 0.01 x10E9/L on 01/12/2024 at 1044 CDT Blood BLOOD SPECIMEN / Unknown Venipuncture / Unknown 01/12/2024 10:22 AM CDT 01/12/2024 10:29 AM CDT Britni Winston PA-C LAB - HEMATOLOGY ORD ERABLES [facility] [address] [place] [address], [facility] [phone] * MAGNESIUM BLOOD (01/12/2024 10:22 AM CDT) Magnesium 1.8 1.6 - 2.6 mg/dL 01/12/2024 10:57 AM [facility] Blood BLOOD SPECIMEN / Unknown Venipuncture / Unknown 01/12/2024 10:22 AM CDT 01/12/2024 10:28 AM CDT Britni Winston PA-C LAB - CHEMISTRY JON NAIDU [facility] [address] [place] [address], [facility] [phone] * (ABNORMAL) COMPREHENSIVE METABOLIC PANEL (01/12/2024 10:22 AM CDT) Pathologist [facility] BUN 11 7 - 26 mg/dL 01/12/2024 10:57 AM [facility] Creatinine 0.58 0.56 - 0.96 mg/dL 01/12/2024 10:57 AM [facility] Sodium 140 136 - 145 mmol/L 01/12/2024 10:57 AM [facility] Potassium 3.8 3.5 - 4.5 mmol/L 01/12/2024 10:57 AM [facility] Chloride 111(H) 98 - 107 mmol/L 01/12/2024 10:57 AM [facility] CO2 20(L) 22 - 29 mmol/L 01/12/2024 10:57 AM [facility] Glucose 194(H) 70 - 115 mg/dL 01/12/2024 10:57 AM [facility] Calcium 9.9 8.4 - 10.2 mg/dL 01/12/2024 10:57 AM [facility] Protein Total 6.9 6.0 - 8.3 g/dL 01/12/2024 10:57 AM [facility] Albumin 3.6 3.4 - 5.0 g/dL 01/12/2024 10:57 AM [facility] Bilirubin Total 0.4 0.2 - 1.2 mg/dL 01/12/2024 10:57 AM [facility] Alkaline Phosphatase 76 40 - 150 U/L 01/12/2024 10:57 AM [facility] ALT 24 5 - 55 U/L 01/12/2024 10:57 AM [facility] AST 11 5 - 34 U/L 01/12/2024 10:57 AM [facility] Anion Gap 9 6 - 16 01/12/2024 10:57 AM [facility] BUN/Creatinine Ratio 19 7 - 23 01/12/2024 10:57 AM [facility] Osmolality Calculated 295 275 - 295 mOsm/kg 01/12/2024 10:57 AM [facility] Albumin/Globulin Ratio 1.1 1.1 - 2.3 01/12/2024 10:57 AM [facility] eGFR by CKD-EPI >90 >=90 mL/min/1.7 3 m2 01/12/2024 10:57 AM [facility] Blood BLOOD SPECIMEN / Unknown Venipuncture / Unknown 01/12/2024 10:22 AM CDT 01/12/2024 10:28 AM CDT Britni Winston PA-C LAB - CHEMISTRY JON NAIDU [address] [address], [facility] [phone] * PHOSPHORUS BLOOD (01/12/2024 10:22 AM CDT) Phosphorus 3.4 2.9 - 5.1 mg/dL 01/12/2024 10:57 AM [facility] Blood BLOOD SPECIMEN / Unknown Venipuncture / Unknown 01/12/2024 10:22 AM CDT 01/12/2024 10:28 AM CDT Britni Winston PA-C LAB - CHEMISTRY ORDAzul NAIDU [address] [address], [place] [phone] * URIC ACID BLOOD (01/09/2024 8:25 AM CDT) Pathologist [facility] Uric Acid 4.1 2.6 - 6.0 mg/dL 01/09/2024 9:02 AM CDT [facility] Blood BLOOD SPECIMEN / Unknown Venipuncture / Unknown 01/09/2024 8:25 AM CDT 01/09/2024 8:32 AM CDT Britni Winston PA-C LAB - CHEMISTRY JON NAIDU Performing Organization Address City/[facility]/ZIP Co de Phone Number [facility] [address] [place] [address], [facility] [phone] * LDH BLOOD (01/09/2024 8:25 AM CDT) [facility] LDH Total 200 125 - 243 Units/L 01/09/2024 9:02 AM CDT [facility] Blood BLOOD SPECIMEN / Unknown Venipuncture / Unknown 01/09/2024 8:25 AM CDT 01/09/2024 8:32 AM CDT Britni Winston PA-C LAB - CHEMISTRY JON NAIDU Performing Organization Address [facility]/ZIP Co de Phone Number [address] [address], [place] [phone] * (ABNORMAL) CBC WITH DIFFERENTIAL (01/09/2024 8:25 AM CDT) [facility] WBC 0.3(LL) 4.0 - 10.7 x10E9/L 01/09/2024 9:11 AM [facility] Comment:No Manual Differenti al performed. WBC count < 0.5 RBC Count 2.65(L) 3.90 - 5.20 x10E12/L 01/09/2024 9:11 AM T [facility] Hemoglobin 7.5(L) 11.9 - 15.8 g/dL 01/09/2024 9:11 AM T [facility] Hematocrit 21.0(L) 34.8 - 46.1 % 01/09/2024 9:11 AM T [facility] MCV 79.2(L) 80.0 - 98.0 fL 01/09/2024 9:11 AM CDT [facility] MCH 28.3 26.7 - 33.6 pg 01/09/2024 9:11 AM T [facility] MCHC 35.7 31.7 - 36.3 g/dL 01/09/2024 9:11 AM T [facility] RDW-CV 13.5 11.3 - 14.8 % 01/09/2024 9:11 AM T [facility] Platelet Count 30(L) 150 - 420 x10E9/L 01/09/2024 9:11 AM T [facility] MPV 9.7 7.8 - 11.4 fL 01/09/2024 9:11 AM T [facility] Preliminary Absolute Neutrophil 01/09/2024 9:11 AM T [facility] Blood BLOOD SPECIMEN / Unknown Venipuncture / Unknown 01/09/2024 8:25 AM CDT 01/09/2024 8:32 AM CDT Britni Winston PA-C LAB - HEMATOLOGY ORD ERABLES [address] [address], [facility] [phone] * MAGNESIUM BLOOD (01/09/2024 8:25 AM CDT) Magnesium 1.9 1.6 - 2.6 mg/dL 01/09/2024 9:02 AM CDT [facility] Blood BLOOD SPECIMEN / Unknown Venipuncture / Unknown 01/09/2024 8:25 AM CDT 01/09/2024 8:32 AM CDT Britni Winston PA-C LAB - CHEMISTRY ORDE RABQI [address] [address], [place] [phone] * (ABNORMAL) COMPREHENSIVE METABOLIC PANEL (01/09/2024 8:25 AM CDT) BUN 11 7 - 26 mg/dL 01/09/2024 9:02 AM [facility] Creatinine 0.60 0.56 - 0.96 mg/dL 01/09/2024 9:02 AM [facility] Sodium 138 136 - 145 mmol/L 01/09/2024 9:02 AM [facility] Potassium 3.8 3.5 - 4.5 mmol/L 01/09/2024 9:02 AM [facility] Chloride 109(H) 98 - 107 mmol/L 01/09/2024 9:02 AM [facility] CO2 20(L) 22 - 29 mmol/L 01/09/2024 9:02 AM [facility] Glucose 165(H) 70 - 115 mg/dL 01/09/2024 9:02 AM [facility] Calcium 9.8 8.4 - 10.2 mg/dL 01/09/2024 9:02 AM [facility] Protein Total 6.9 6.0 - 8.3 g/dL 01/09/2024 9:02 AM [facility] Albumin 3.7 3.4 - 5.0 g/dL 01/09/2024 9:02 AM [facility] Bilirubin Total 0.5 0.2 - 1.2 mg/dL 01/09/2024 9:02 AM [facility] Alkaline Phosphatase 74 40 - 150 U/L 01/09/2024 9:02 AM [facility] ALT 26 5 - 55 U/L 01/09/2024 9:02 AM [facility] AST 11 5 - 34 U/L 01/09/2024 9:02 AM [facility] Anion Gap 9 6 - 16 01/09/2024 9:02 AM [facility] BUN/Creatinine Ratio 18 7 - 23 01/09/2024 9:02 AM [facility] Osmolality Calculated 289 275 - 295 mOsm/kg 01/09/2024 9:02 AM [facility] Albumin/Globulin Ratio 1.2 1.1 - 2.3 01/09/2024 9:02 AM [facility] eGFR by CKD-EPI >90 >=90 mL/min/1.7 3 m2 01/09/2024 9:02 AM CDT [facility] Blood BLOOD SPECIMEN / Unknown Venipuncture / Unknown 01/09/2024 8:25 AM CDT 01/09/2024 8:32 AM CDT Britni Winston PA-C LAB - CHEMISTRY JON NAIDU [address] [address], [place] [phone] * PHOSPHORUS BLOOD (01/09/2024 8:25 AM CDT) Phosphorus 3.7 2.9 - 5.1 mg/dL 01/09/2024 9:02 AM CDT [facility] Blood BLOOD SPECIMEN / Unknown Venipuncture / Unknown 01/09/2024 8:25 AM CDT 01/09/2024 8:32 AM CDT Britni Winston PA-C LAB - CHEMISTRY JON NAIDU Performing Organization Address City/[facility]/ZIP Co de Phone Number [address] [address], [place] [phone] * TYPE + SCREEN PANEL (01/07/2024 8:55 AM CDT) Antibody Screen NEG 9:50 AM CDT [facility] ABO Rh O POS 01/07/2024 9:50 AM CDT [facility] Blood Bank BLOOD SPECIMEN / Unknown Venipuncture / Unknown 01/07/2024 8:55 AM CDT 01/07/2024 9:10 AM CDT Britni Winston PA-C LAB - BLOOD BANK ORD ERABLES [facility] [address] [place] [address], [place] [phone] * URIC ACID BLOOD (01/07/2024 8:55 AM CDT) Uric Acid 4.4 2.6 - 6.0 mg/dL 01/07/2024 9:36 AM CDT [facility] Blood BLOOD SPECIMEN / Unknown Venipuncture / Unknown 01/07/2024 8:55 AM CDT 01/07/2024 9:06 AM CDT Britni Winston PA-C LAB - CHEMISTRY JON NAIDU [address] [address], [facility] [phone] * LDH BLOOD (01/07/2024 8:55 AM CDT) [facility] LDH Total 182 125 - 243 Units/L 01/07/2024 9:36 AM CDT [facility] Blood BLOOD SPECIMEN / Unknown Venipuncture / Unknown 01/07/2024 8:55 AM CDT 01/07/2024 9:06 AM CDT Britni Winston PA-C LAB - CHEMISTRY JON NAIDU [address] [address], [facility] [phone] * (ABNORMAL) CBC WITH DIFFERENTIAL (01/07/2024 8:55 AM CDT) [facility] WBC 0.5(LL) 4.0 - 10.7 x10E9/L 01/07/2024 9:50 AM [facility] RBC Count 2.98(L) 3.90 - 5.20 x10E12/L 01/07/2024 9:50 AM [facility] Hemoglobin 8.3(L) 11.9 - 15.8 g/dL 01/07/2024 9:50 AM T [facility] Hematocrit 23.6(L) 34.8 - 46.1 % 01/07/2024 9:50 AM [facility] MCV 79.2(L) 80.0 - 98.0 fL 01/07/2024 9:50 AM CDT [facility] MCH 27.9 26.7 - 33.6 pg 01/07/2024 9:50 AM T [facility] MCHC 35.2 31.7 - 36.3 g/dL 01/07/2024 9:50 AM [facility] RDW-CV 13.8 11.3 - 14.8 % 01/07/2024 9:50 AM [facility] Platelet Count 3(LL) 150 - 420 x10E9/L 01/07/2024 9:50 AM [facility] Preliminary Absolute Neutrophil 0.29(L) 1.60 - 7.50 x10E9/L 01/07/2024 9:50 AM [facility] Comment:Preliminary ANC pend ing manual confirmation Blood BLOOD SPECIMEN / Unknown Venipuncture / Unknown 01/07/2024 8:55 AM CDT 01/07/2024 9:06 AM CDT Britni Winston PA-C LAB - HEMATOLOGY ORD ERABLES [address] [address], [facility] [phone] * MAGNESIUM BLOOD (01/07/2024 8:55 AM CDT) Magnesium 1.8 1.6 - 2.6 mg/dL 01/07/2024 9:36 AM T [facility] Blood BLOOD SPECIMEN / Unknown Venipuncture / Unknown 01/07/2024 8:55 AM CDT 01/07/2024 9:06 AM CDT Britni Winston PA-C LAB - CHEMISTRY ORDE RABQI [address] [address], [place] [phone] * (ABNORMAL) COMPREHENSIVE METABOLIC PANEL (01/07/2024 8:55 AM CDT) BUN 16 7 - 26 mg/dL 01/07/2024 9:36 AM [facility] Creatinine 0.69 0.56 - 0.96 mg/dL 01/07/2024 9:36 AM [facility] Sodium 138 136 - 145 mmol/L 01/07/2024 9:36 AM [facility] Potassium 3.8 3.5 - 4.5 mmol/L 01/07/2024 9:36 AM [facility] Chloride 108(H) 98 - 107 mmol/L 01/07/2024 9:36 AM [facility] CO2 20(L) 22 - 29 mmol/L 01/07/2024 9:36 AM [facility] Glucose 180(H) 70 - 115 mg/dL 01/07/2024 9:36 AM [facility] Calcium 9.7 8.4 - 10.2 mg/dL 01/07/2024 9:36 AM [facility] Protein Total 6.6 6.0 - 8.3 g/dL 01/07/2024 9:36 AM [facility] Albumin 3.6 3.4 - 5.0 g/dL 01/07/2024 9:36 AM [facility] Bilirubin Total 0.8 0.2 - 1.2 mg/dL 01/07/2024 9:36 AM [facility] Alkaline Phosphatase 65 40 - 150 U/L 01/07/2024 9:36 AM [facility] ALT 29 5 - 55 U/L 01/07/2024 9:36 AM [facility] AST 12 5 - 34 U/L 01/07/2024 9:36 AM [facility] Anion Gap 10 6 - 16 01/07/2024 9:36 AM [facility] BUN/Creatinine Ratio 23 7 - 23 01/07/2024 9:36 AM [facility] Osmolality Calculated 292 275 - 295 mOsm/kg 01/07/2024 9:36 AM [facility] Albumin/Globulin Ratio 1.2 1.1 - 2.3 01/07/2024 9:36 AM [facility] eGFR by CKD-EPI >90 >=90 mL/min/1.7 3 m2 01/07/2024 9:36 AM CDT [facility] Blood BLOOD SPECIMEN / Unknown Venipuncture / Unknown 01/07/2024 8:55 AM CDT 01/07/2024 9:06 AM CDT Britni Winston PA-C LAB - CHEMISTRY JON NAIDU Performing Organization Address [facility]/ZIP Co de Phone Number [address] [address], [place] [phone] * PHOSPHORUS BLOOD (01/07/2024 8:55 AM CDT) Phosphorus 4.0 2.9 - 5.1 mg/dL 01/07/2024 9:36 AM CDT [facility] Blood BLOOD SPECIMEN / Unknown Venipuncture / Unknown 01/07/2024 8:55 AM CDT 01/07/2024 9:06 AM CDT Britni Winston PA-C LAB - CHEMISTRY JON NAIDU Performing Organization Address [facility]/ZIP Co de Phone Number [facility] [address] [address], [place] [phone] * TYPE + SCREEN PANEL (12/30/2023 9:09 AM CDT) Antibody Screen NEG 10:13 AM CDT [facility] ABO Rh O POS 12/30/2023 10:13 AM CDT [facility] Blood Bank BLOOD SPECIMEN / Unknown Venipuncture / Unknown 12/30/2023 9:09 AM CDT 12/30/2023 9:26 AM CDT Britni Winston PA-C LAB - BLOOD BANK MANJULA HONG Performing Organization Address [facility]/ZIP Co de Phone Number [facility] [address] [place] [address], [place] [phone] * URIC ACID BLOOD (12/30/2023 9:09 AM CDT) Uric Acid 4.7 2.6 - 6.0 mg/dL 12/30/2023 9:44 AM CDT [facility] Blood BLOOD SPECIMEN / Unknown Venipuncture / Unknown 12/30/2023 9:09 AM CDT 12/30/2023 9:18 AM CDT Britni Winston PA-C LAB - CHEMISTRY JON NAIDU Performing Organization Address [facility]/ZIP Co de Phone Number [address] [address], [facility] [phone] * (ABNORMAL) LDH BLOOD (12/30/2023 9:09 AM CDT) Pathologist [facility] LDH Total 260(H) 125 - 243 Units/L 12/30/2023 9:44 AM CDT [facility] Blood BLOOD SPECIMEN / Unknown Venipuncture / Unknown 12/30/2023 9:09 AM CDT 12/30/2023 9:18 AM CDT Britni Winston PA-C LAB - CHEMISTRY JON NAIDU Performing Organization Address [facility]/ZIP Co de Phone Number [address] [address], [facility] [phone] * (ABNORMAL) CBC WITH DIFFERENTIAL (12/30/2023 9:09 AM CDT) [facility] WBC 5.0 4.0 - 10.7 x10E9/L 12/30/2023 9:56 AM [facility] RBC Count 2.58(L) 3.90 - 5.20 x10E12/L 12/30/2023 9:56 AM [facility] Hemoglobin 7.4(L) 11.9 - 15.8 g/dL 12/30/2023 9:56 AM [facility] Hematocrit 21.1(L) 34.8 - 46.1 % 12/30/2023 9:56 AM [facility] MCV 81.8 80.0 - 98.0 fL 12/30/2023 9:56 AM [facility] MCH 28.7 26.7 - 33.6 pg 12/30/2023 9:56 AM [facility] MCHC 35.1 31.7 - 36.3 g/dL 12/30/2023 9:56 AM [facility] RDW-CV 14.6 11.3 - 14.8 % 12/30/2023 9:56 AM [facility] Platelet Count 12/30/2023 9:56 AM [facility] Comment:Platelets clumped on slide but appears decreased. Recommend repeat with a sodium citrate blue top tube. MPV 12/30/2023 9:56 AM [facility] Comment:Unable to report Preliminary Absolute Neutrophil 2.16 1.60 - 7.50 x10E9/L 12/30/2023 9:56 AM [facility] Comment:Preliminary ANC pend ing manual confirmation Neutrophil % 42.9 41.0 - 74.0 % 12/30/2023 9:56 AM [facility] Lymphocyte % 34.5 17.0 - 47.0 % 12/30/2023 9:56 AM [facility] Monocyte % 21.8(H) 3.0 - 11.0 % 12/30/2023 9:56 AM [facility] Eosinophil % 0.0 0.0 - 7.0 % 12/30/2023 9:56 AM [facility] Basophil % 0.2 0.0 - 1.6 % 12/30/2023 9:56 AM [facility] Immature Granulocytes % 0.6 0.0 - 1.0 % 12/30/2023 9:56 AM [facility] Neutrophil Absolute 2.16 1.60 - 7.50 x10E9/L 12/30/2023 9:56 AM [facility] Lymphocyte Absolute 1.74 1.00 - 4.40 x10E9/L 12/30/2023 9:56 AM [facility] Monocyte Absolute 1.10(H) 0.15 - 1.00 x10E9/L 12/30/2023 9:56 AM [facility] Eosinophil Absolute 0.00 0.00 - 0.60 x10E9/L 12/30/2023 9:56 AM [facility] Basophil Absolute 0.01 0.00 - 0.13 x10E9/L 12/30/2023 9:56 AM CDT [facility] NRBC 1.4(H) <=0.0 /100 WBC 12/30/2023 9:56 AM T [facility] Blood BLOOD SPECIMEN / Unknown Venipuncture / Unknown 12/30/2023 9:09 AM CDT 12/30/2023 9:18 AM CDT Britni Winston PA-C LAB - HEMATOLOGY ORD ERABLES Performing Organization Address City/[facility]/ZIP Co de Phone Number [address] [address], [facility] [phone] * MAGNESIUM BLOOD (12/30/2023 9:09 AM CDT) Magnesium 1.8 1.6 - 2.6 mg/dL 12/30/2023 9:44 AM T [facility] Blood BLOOD SPECIMEN / Unknown Venipuncture / Unknown 12/30/2023 9:09 AM CDT 12/30/2023 9:18 AM CDT Britni Winston PA-C LAB - CHEMISTRY ORDE RABQI Performing Organization Address City/[facility]/ZIP Co de Phone Number [address] [address], [facility] [phone] * (ABNORMAL) COMPREHENSIVE METABOLIC PANEL (12/30/2023 9:09 AM CDT) BUN 9 7 - 26 mg/dL 12/30/2023 9:44 AM [facility] Creatinine 0.72 0.56 - 0.96 mg/dL 12/30/2023 9:44 AM T [facility] Sodium 142 136 - 145 mmol/L 12/30/2023 9:44 AM [facility] Potassium 3.8 3.5 - 4.5 mmol/L 12/30/2023 9:44 AM T [facility] Chloride 112(H) 98 - 107 mmol/L 12/30/2023 9:44 AM T [facility] CO2 20(L) 22 - 29 mmol/L 12/30/2023 9:44 AM [facility] Glucose 187(H) 70 - 115 mg/dL 12/30/2023 9:44 AM [facility] Calcium 9.7 8.4 - 10.2 mg/dL 12/30/2023 9:44 AM [facility] Protein Total 6.9 6.0 - 8.3 g/dL 12/30/2023 9:44 AM [facility] Albumin 3.5 3.4 - 5.0 g/dL 12/30/2023 9:44 AM [facility] Bilirubin Total 0.4 0.2 - 1.2 mg/dL 12/30/2023 9:44 AM [facility] Alkaline Phosphatase 86 40 - 150 U/L 12/30/2023 9:44 AM [facility] ALT 21 5 - 55 U/L 12/30/2023 9:44 AM [facility] AST 17 5 - 34 U/L 12/30/2023 9:44 AM [facility] Anion Gap 10 6 - 16 12/30/2023 9:44 AM [facility] BUN/Creatinine Ratio 13 7 - 23 12/30/2023 9:44 AM [facility] Osmolality Calculated 298(H) 275 - 295 mOsm/kg 12/30/2023 9:44 AM [facility] Albumin/Globulin Ratio 1.0(L) 1.1 - 2.3 12/30/2023 9:44 AM [facility] eGFR by CKD-EPI >90 >=90 mL/min/1.7 3 m2 12/30/2023 9:44 AM [facility] Blood BLOOD SPECIMEN / Unknown Venipuncture / Unknown 12/30/2023 9:09 AM [facility] 12/30/2023 9:18 AM [facility] Britni Winston PA-C LAB - CHEMISTRY JON NAIDU [facility] Organization Address City/State/ZIP Co de Phone Number [facility] [address] [place] [address], [facility] [phone] * PHOSPHORUS BLOOD (12/30/2023 9:09 AM CDT) Phosphorus 3.5 2.9 - 5.1 mg/dL 12/30/2023 9:44 AM CDT [facility] Blood BLOOD SPECIMEN / Unknown Venipuncture / Unknown 12/30/2023 9:09 AM CDT 12/30/2023 9:18 AM CDT Britni Winston PA-C LAB - CHEMISTRY JON NAIDU [address] [address], [place] [phone] * TYPE + SCREEN PANEL (12/19/2023 8:51 AM CDT) Antibody Screen NEG 9:56 AM CDT [facility] BLOOD [facility] ABO Rh O POS 12/19/2023 9:56 AM CDT [facility] Blood Bank BLOOD SPECIMEN / Unknown Venipuncture / Unknown 12/19/2023 8:51 AM CDT 12/19/2023 9:14 AM CDT Britni Winston PA-C LAB - BLOOD BANK ORD GELY [facility] [address] [place] [address], [place] [phone] * URIC ACID BLOOD (12/19/2023 8:51 AM CDT) Uric Acid 2.9 2.6 - 6.0 mg/dL 12/19/2023 9:45 AM CDT [facility] Blood BLOOD SPECIMEN / Unknown Venipuncture / Unknown 12/19/2023 8:51 AM CDT 12/19/2023 9:06 AM CDT Britni Winston PA-C LAB - CHEMISTRY JON NAIDU [address] [address], [facility] [phone] * LDH BLOOD (12/19/2023 8:51 AM CDT) [facility] LDH Total 169 125 - 243 Units/L 12/19/2023 9:45 AM [facility] Blood BLOOD SPECIMEN / Unknown Venipuncture / Unknown 12/19/2023 8:51 AM CDT 12/19/2023 9:06 AM CDT Britni Winston PA-C LAB - CHEMISTRY ORDE ELYSIA [facility] [address] [place] [address], [facility] [phone] * (ABNORMAL) CBC WITH DIFFERENTIAL (12/19/2023 8:51 AM CDT) [facility] WBC 0.5(LL) 4.0 - 10.7 x10E9/L 12/19/2023 10:39 AM [facility] RBC Count 2.37(L) 3.90 - 5.20 x10E12/L 12/19/2023 10:39 AM [facility] Hemoglobin 6.8(L) 11.9 - 15.8 g/dL 12/19/2023 10:39 AM [facility] Hematocrit 18.8(L) 34.8 - 46.1 % 12/19/2023 10:39 AM [facility] MCV 79.3(L) 80.0 - 98.0 fL 12/19/2023 10:39 AM [facility] MCH 28.7 26.7 - 33.6 pg 12/19/2023 10:39 AM [facility] MCHC 36.2 31.7 - 36.3 g/dL 12/19/2023 10:39 AM [facility] RDW-CV 13.6 11.3 - 14.8 % 12/19/2023 10:39 AM [facility] Platelet Count 12(LL) 150 - 420 x10E9/L 12/19/2023 10:39 AM [facility] MPV 8.5 7.8 - 11.4 fL 12/19/2023 10:39 AM T [facility] Preliminary Absolute Neutrophil 0.03(L) 1.60 - 7.50 x10E9/L 12/19/2023 10:39 AM [facility] Comment:Preliminary ANC pend ing manual confirmation Blood BLOOD SPECIMEN / Unknown Venipuncture / Unknown 12/19/2023 8:51 AM CDT 12/19/2023 9:06 AM CDT Britni Winston PA-C LAB - HEMATOLOGY ORD ERABLES [address] [address], [facility] [phone] * MAGNESIUM BLOOD (12/19/2023 8:51 AM CDT) Magnesium 1.9 1.6 - 2.6 mg/dL 12/19/2023 9:45 AM [facility] Blood BLOOD SPECIMEN / Unknown Venipuncture / Unknown 12/19/2023 8:51 AM CDT 12/19/2023 9:06 AM CDT Britni Winston PA-C LAB - CHEMISTRY ORDE RABQI [address] [address], [facility] [phone] * (ABNORMAL) COMPREHENSIVE METABOLIC PANEL (12/19/2023 8:51 AM CDT) BUN 9 7 - 26 mg/dL 12/19/2023 9:45 AM [facility] Creatinine 0.68 0.56 - 0.96 mg/dL 12/19/2023 9:45 AM [facility] Sodium 137 136 - 145 mmol/L 12/19/2023 9:45 AM [facility] Potassium 4.0 3.5 - 4.5 mmol/L 12/19/2023 9:45 AM [facility] Chloride 106 98 - 107 mmol/L 12/19/2023 9:45 AM [facility] CO2 21(L) 22 - 29 mmol/L 12/19/2023 9:45 AM [facility] Glucose 127(H) 70 - 115 mg/dL 12/19/2023 9:45 AM [facility] Calcium 9.8 8.4 - 10.2 mg/dL 12/19/2023 9:45 AM [facility] Protein Total 7.3 6.0 - 8.3 g/dL 12/19/2023 9:45 AM [facility] Albumin 3.3(L) 3.4 - 5.0 g/dL 12/19/2023 9:45 AM [facility] Bilirubin Total 0.4 0.2 - 1.2 mg/dL 12/19/2023 9:45 AM [facility] Alkaline Phosphatase 77 40 - 150 U/L 12/19/2023 9:45 AM [facility] ALT 17 5 - 55 U/L 12/19/2023 9:45 AM [facility] AST 10 5 - 34 U/L 12/19/2023 9:45 AM [facility] Anion Gap 10 6 - 16 12/19/2023 9:45 AM [facility] BUN/Creatinine Ratio 13 7 - 23 12/19/2023 9:45 AM [facility] Osmolality Calculated 284 275 - 295 mOsm/kg 12/19/2023 9:45 AM [facility] Albumin/Globulin Ratio 0.8(L) 1.1 - 2.3 12/19/2023 9:45 AM [facility] eGFR by CKD-EPI >90 >=90 mL/min/1.7 3 m2 12/19/2023 9:45 AM [facility] Blood BLOOD SPECIMEN / Unknown Venipuncture / Unknown 12/19/2023 8:51 AM [facility] 12/19/2023 9:06 AM [facility] Britni Winston PA-C LAB - CHEMISTRY JON NAIDU [facility] Organization Address City/State/ZIP Co de Phone Number [facility] [address] [place] [address], [place] [phone] * PHOSPHORUS BLOOD (12/19/2023 8:51 AM CDT) Phosphorus 3.2 2.9 - 5.1 mg/dL 12/19/2023 9:45 AM CDT [facility] Blood BLOOD SPECIMEN / Unknown Venipuncture / Unknown 12/19/2023 8:51 AM CDT 12/19/2023 9:06 AM CDT Britni Winston PA-C LAB - CHEMISTRY ORDAzul NAIDU [address] [address], [place] [phone] * URIC ACID BLOOD (12/17/2023 8:37 AM CDT) Uric Acid 3.1 2.6 - 6.0 mg/dL 12/17/2023 9:24 AM CDT [facility] Blood BLOOD SPECIMEN / Unknown Venipuncture / Unknown 12/17/2023 8:37 AM CDT 12/17/2023 8:44 AM CDT Britni Winston PA-C LAB - CHEMISTRY JON NAIDU Performing Organization Address City/[facility]/ZIP Co de Phone Number [address] [address], [place] [phone] * LDH BLOOD (12/17/2023 8:37 AM CDT) LDH Total 184 125 - 243 Units/L 12/17/2023 9:24 AM CDT [facility] Blood BLOOD SPECIMEN / Unknown Venipuncture / Unknown 12/17/2023 8:37 AM CDT 12/17/2023 8:44 AM CDT Britni Winston PA-C LAB - CHEMISTRY JON NAIDU [address] [address], [place] [phone] * (ABNORMAL) CBC WITH DIFFERENTIAL (12/17/2023 8:37 AM T) WBC 0.2(LL) 4.0 - 10.7 x10E9/L 12/17/2023 9:32 AM [facility] Comment:No differential repo rted. WBC count <0.5 RBC Count 2.63(L) 3.90 - 5.20 x10E12/L 12/17/2023 9:32 AM [facility] Hemoglobin 7.7(L) 11.9 - 15.8 g/dL 12/17/2023 9:32 AM [facility] Hematocrit 20.9(L) 34.8 - 46.1 % 12/17/2023 9:32 AM [facility] MCV 79.5(L) 80.0 - 98.0 fL 12/17/2023 9:32 AM [facility] MCH 29.3 26.7 - 33.6 pg 12/17/2023 9:32 AM [facility] MCHC 36.8(H) 31.7 - 36.3 g/dL 12/17/2023 9:32 AM [facility] RDW-CV 13.5 11.3 - 14.8 % 12/17/2023 9:32 AM [facility] Platelet Count 37(L) 150 - 420 x10E9/L 12/17/2023 9:32 AM [facility] MPV 9.9 7.8 - 11.4 fL 12/17/2023 9:32 AM [facility] Preliminary Absolute Neutrophil 12/17/2023 9:32 AM [facility] Blood BLOOD SPECIMEN / Unknown Venipuncture / Unknown 12/17/2023 8:37 AM CDT 12/17/2023 8:44 AM T Britni Winston PA-C LAB - HEMATOLOGY ORD ERABLES [facility] [address] [place] [phone], [facility] [phone] * MAGNESIUM BLOOD (12/17/2023 8:37 AM CDT) Magnesium 2.0 1.6 - 2.6 mg/dL 12/17/2023 9:24 AM [facility] Blood BLOOD SPECIMEN / Unknown Venipuncture / Unknown 12/17/2023 8:37 AM CDT 12/17/2023 8:44 AM CDT Britni Winston PA-C LAB - CHEMISTRY JON NAIDU [facility] [address] [place] [address], [facility] [phone] * (ABNORMAL) COMPREHENSIVE METABOLIC PANEL (12/17/2023 8:37 AM CDT) Pathologist [facility] BUN 9 7 - 26 mg/dL 12/17/2023 9:24 AM [facility] Creatinine 0.62 0.56 - 0.96 mg/dL 12/17/2023 9:24 AM [facility] Sodium 136 136 - 145 mmol/L 12/17/2023 9:24 AM [facility] Potassium 3.8 3.5 - 4.5 mmol/L 12/17/2023 9:24 AM [facility] Chloride 107 98 - 107 mmol/L 12/17/2023 9:24 AM [facility] CO2 18(L) 22 - 29 mmol/L 12/17/2023 9:24 AM [facility] Glucose 162(H) 70 - 115 mg/dL 12/17/2023 9:24 AM [facility] Calcium 9.9 8.4 - 10.2 mg/dL 12/17/2023 9:24 AM [facility] Protein Total 7.3 6.0 - 8.3 g/dL 12/17/2023 9:24 AM [facility] Albumin 3.6 3.4 - 5.0 g/dL 12/17/2023 9:24 AM [facility] Bilirubin Total 0.6 0.2 - 1.2 mg/dL 12/17/2023 9:24 AM [facility] Alkaline Phosphatase 91 40 - 150 U/L 12/17/2023 9:24 AM [facility] ALT 22 5 - 55 U/L 12/17/2023 9:24 AM [facility] AST 12 5 - 34 U/L 12/17/2023 9:24 AM [facility] Anion Gap 11 6 - 16 12/17/2023 9:24 AM [facility] BUN/Creatinine Ratio 15 7 - 23 12/17/2023 9:24 AM [facility] Osmolality Calculated 284 275 - 295 mOsm/kg 12/17/2023 9:24 AM [facility] Albumin/Globulin Ratio 1.0(L) 1.1 - 2.3 12/17/2023 9:24 AM [facility] eGFR by CKD-EPI >90 >=90 mL/min/1.7 3 m2 12/17/2023 9:24 AM [facility] Blood BLOOD SPECIMEN / Unknown Venipuncture / Unknown 12/17/2023 8:37 AM CDT 12/17/2023 8:44 AM CDT Britni Winston PA-C LAB - CHEMISTRY ORDAzul NAIDU [address] [address], [facility] [phone] * PHOSPHORUS BLOOD (12/17/2023 8:37 AM CDT) Phosphorus 3.4 2.9 - 5.1 mg/dL 12/17/2023 9:24 AM T [facility] Blood BLOOD SPECIMEN / Unknown Venipuncture / Unknown 12/17/2023 8:37 AM CDT 12/17/2023 8:44 AM CDT Britni Winston PA-C LAB - CHEMISTRY ORDAzul NAIDU [address] [address], [place] [phone] * TYPE + SCREEN PANEL (12/15/2023 9:39 AM CDT) Antibody Screen NEG 10:36 AM CDT [facility]OD [facility] ABO Rh O POS 12/15/2023 10:36 AM CDT [facility] Blood Bank BLOOD SPECIMEN / Unknown Venipuncture / Unknown 12/15/2023 9:39 AM CDT 12/15/2023 9:56 AM CDT Britni Winston PA-C LAB - BLOOD BANK ORD ERABLES [facility] [address] [place] [address], [place] [phone] * URIC ACID BLOOD (12/15/2023 9:39 AM CDT) Pathologist [facility] Uric Acid 3.5 2.6 - 6.0 mg/dL 12/15/2023 10:26 AM CDT [facility] Blood BLOOD SPECIMEN / Unknown Venipuncture / Unknown 12/15/2023 9:39 AM CDT 12/15/2023 9:44 AM CDT Britni Winston PA-C LAB - CHEMISTRY ORDE RABQI Performing Organization Address City/[facility]/ZIP Co de Phone Number [address] [address], [place] [phone] * LDH BLOOD (12/15/2023 9:39 AM CDT) Pathologist [facility] LDH Total 182 125 - 243 Units/L 12/15/2023 10:26 AM CDT [facility] Blood BLOOD SPECIMEN / Unknown Venipuncture / Unknown 12/15/2023 9:39 AM CDT 12/15/2023 9:44 AM CDT Britni Winston PA-C LAB - CHEMISTRY ORDE RABQI Performing Organization Address City/[facility]/ZIP Co de Phone Number [address] [address], [place] [phone] * (ABNORMAL) CBC WITH DIFFERENTIAL (12/15/2023 9:39 AM CDT) WBC 0.2(LL) 4.0 - 10.7 x10E9/L 12/15/2023 10:24 AM [facility] Comment:No differential repo rted. WBC count <0.5 RBC Count 2.18(L) 3.90 - 5.20 x10E12/L 12/15/2023 10:24 AM [facility] Hemoglobin 6.2(L) 11.9 - 15.8 g/dL 12/15/2023 10:24 AM [facility] Hematocrit 17.3(L) 34.8 - 46.1 % 12/15/2023 10:24 AM [facility] MCV 79.4(L) 80.0 - 98.0 fL 12/15/2023 10:24 AM [facility] MCH 28.4 26.7 - 33.6 pg 12/15/2023 10:24 AM [facility] MCHC 35.8 31.7 - 36.3 g/dL 12/15/2023 10:24 AM [facility] RDW-CV 13.2 11.3 - 14.8 % 12/15/2023 10:24 AM [facility] Platelet Count 15(LL) 150 - 420 x10E9/L 12/15/2023 10:24 AM [facility] MPV 11.2 7.8 - 11.4 fL 12/15/2023 10:24 AM [facility] Preliminary Absolute Neutrophil 12/15/2023 10:24 AM [facility] Comment:Preliminary ANC pend ing manual confirmation Blood BLOOD SPECIMEN / Unknown Venipuncture / Unknown 12/15/2023 9:39 AM CDT 12/15/2023 9:44 AM T Britni Winston PA-C LAB - HEMATOLOGY ORD ERABLES [facility] [address] [place] [id number], [facility] [phone] * MAGNESIUM BLOOD (12/15/2023 9:39 AM CDT) Magnesium 1.9 1.6 - 2.6 mg/dL 12/15/2023 10:26 AM [facility] Blood BLOOD SPECIMEN / Unknown Venipuncture / Unknown 12/15/2023 9:39 AM CDT 12/15/2023 9:44 AM CDT Britni Winston PA-C LAB - CHEMISTRY JON NAIDU [facility] [address] [place] [address], [facility] [phone] * (ABNORMAL) COMPREHENSIVE METABOLIC PANEL (12/15/2023 9:39 AM CDT) BUN 10 7 - 26 mg/dL 12/15/2023 10:26 AM [facility] Creatinine 0.63 0.56 - 0.96 mg/dL 12/15/2023 10:26 AM [facility] Sodium 140 136 - 145 mmol/L 12/15/2023 10:26 AM [facility] Potassium 3.8 3.5 - 4.5 mmol/L 12/15/2023 10:26 AM [facility] Chloride 111(H) 98 - 107 mmol/L 12/15/2023 10:26 AM [facility] CO2 20(L) 22 - 29 mmol/L 12/15/2023 10:26 AM [facility] Glucose 151(H) 70 - 115 mg/dL 12/15/2023 10:26 AM [facility] Calcium 9.6 8.4 - 10.2 mg/dL 12/15/2023 10:26 AM [facility] Protein Total 6.5 6.0 - 8.3 g/dL 12/15/2023 10:26 AM [facility] Albumin 3.3(L) 3.4 - 5.0 g/dL 12/15/2023 10:26 AM [facility] Bilirubin Total 0.5 0.2 - 1.2 mg/dL 12/15/2023 10:26 AM [facility] Alkaline Phosphatase 79 40 - 150 U/L 12/15/2023 10:26 AM [facility] ALT 23 5 - 55 U/L 12/15/2023 10:26 AM [facility] AST 12 5 - 34 U/L 12/15/2023 10:26 AM [facility] Anion Gap 9 6 - 16 12/15/2023 10:26 AM [facility] BUN/Creatinine Ratio 16 7 - 23 12/15/2023 10:26 AM [facility] Osmolality Calculated 292 275 - 295 mOsm/kg 12/15/2023 10:26 AM [facility] Albumin/Globulin Ratio 1.0(L) 1.1 - 2.3 12/15/2023 10:26 AM [facility] eGFR by CKD-EPI >90 >=90 mL/min/1.7 3 m2 12/15/2023 10:26 AM [facility] Blood BLOOD SPECIMEN / Unknown Venipuncture / Unknown 12/15/2023 9:39 AM CDT 12/15/2023 9:44 AM CDT Britni Winston PA-C LAB - CHEMISTRY ORDAzul NAIDU [address] [address], [place] [phone] * PHOSPHORUS BLOOD (12/15/2023 9:39 AM CDT) Phosphorus 3.3 2.9 - 5.1 mg/dL 12/15/2023 10:26 AM T [facility] Blood BLOOD SPECIMEN / Unknown Venipuncture / Unknown 12/15/2023 9:39 AM CDT 12/15/2023 9:44 AM CDT Britni Winston PA-C LAB - CHEMISTRY ORDAzul NAIDU [address] [address], [place] [phone] * TYPE + SCREEN PANEL (12/12/2023 10:00 AM CDT) Antibody Screen NEG 10:53 AM CDT [facility] ABO Rh O POS 12/12/2023 10:53 AM CDT [facility] Blood Bank BLOOD SPECIMEN / Unknown Venipuncture / Unknown 12/12/2023 10:00 AM CDT 12/12/2023 10:11 AM CDT Britni Winston PA-C LAB - BLOOD BANK ORD ERABLES [facility] [address] [place] [address], [place] [phone] * URIC ACID BLOOD (12/12/2023 10:00 AM CDT) Uric Acid 3.3 2.6 - 6.0 mg/dL 12/12/2023 10:38 AM CDT [facility] Blood BLOOD SPECIMEN / Unknown Venipuncture / Unknown 12/12/2023 10:00 AM CDT 12/12/2023 10:08 AM CDT Britni Winston PA-C LAB - CHEMISTRY ORDE RABQI [address] [address], [place] [phone] * LDH BLOOD (12/12/2023 10:00 AM CDT) LDH Total 198 125 - 243 Units/L 12/12/2023 10:38 AM CDT [facility] Blood BLOOD SPECIMEN / Unknown Venipuncture / Unknown 12/12/2023 10:00 AM CDT 12/12/2023 10:08 AM CDT Britni Winston PA-C LAB - CHEMISTRY ORDE ELYSIA [address] [address], [place] [phone] * (ABNORMAL) CBC WITH DIFFERENTIAL (12/12/2023 10:00 AM [facility]) WBC 0.2(LL) 4.0 - 10.7 x10E9/L 12/12/2023 10:57 AM [facility] Comment:No differential repo rted. WBC count <0.5 RBC Count 2.49(L) 3.90 - 5.20 x10E12/L 12/12/2023 10:57 AM [facility] Hemoglobin 7.1(L) 11.9 - 15.8 g/dL 12/12/2023 10:57 AM [facility] Hematocrit 19.7(L) 34.8 - 46.1 % 12/12/2023 10:57 AM [facility] MCV 79.1(L) 80.0 - 98.0 fL 12/12/2023 10:57 AM [facility] MCH 28.5 26.7 - 33.6 pg 12/12/2023 10:57 AM [facility] MCHC 36.0 31.7 - 36.3 g/dL 12/12/2023 10:57 AM [facility] RDW-CV 13.8 11.3 - 14.8 % 12/12/2023 10:57 AM [facility] Platelet Count 24(L) 150 - 420 x10E9/L 12/12/2023 10:57 AM [facility] MPV 10.2 7.8 - 11.4 fL 12/12/2023 10:57 AM [facility] Preliminary Absolute Neutrophil 12/12/2023 10:57 AM [facility] Blood BLOOD SPECIMEN / Unknown Venipuncture / Unknown 12/12/2023 10:00 AM CDT 12/12/2023 10:08 AM [facility] Britni Winston PA-C LAB - HEMATOLOGY ORD ERABLES [facility] [address] [place] [address], [facility] [phone] * MAGNESIUM BLOOD (12/12/2023 10:00 AM CDT) Magnesium 1.9 1.6 - 2.6 mg/dL 12/12/2023 10:38 AM [facility] Blood BLOOD SPECIMEN / Unknown Venipuncture / Unknown 12/12/2023 10:00 AM CDT 12/12/2023 10:08 AM CDT Britni Winston PA-C LAB - CHEMISTRY JON NAIDU [facility] [address] [place] [address], [facility] [phone] * (ABNORMAL) COMPREHENSIVE METABOLIC PANEL (12/12/2023 10:00 AM CDT) BUN 10 7 - 26 mg/dL 12/12/2023 10:38 AM [facility] Creatinine 0.62 0.56 - 0.96 mg/dL 12/12/2023 10:38 AM [facility] Sodium 141 136 - 145 mmol/L 12/12/2023 10:38 AM [facility] Potassium 3.8 3.5 - 4.5 mmol/L 12/12/2023 10:38 AM [facility] Chloride 110(H) 98 - 107 mmol/L 12/12/2023 10:38 AM [facility] CO2 21(L) 22 - 29 mmol/L 12/12/2023 10:38 AM [facility] Glucose 154(H) 70 - 115 mg/dL 12/12/2023 10:38 AM [facility] Calcium 9.7 8.4 - 10.2 mg/dL 12/12/2023 10:38 AM [facility] Protein Total 6.6 6.0 - 8.3 g/dL 12/12/2023 10:38 AM [facility] Albumin 3.4 3.4 - 5.0 g/dL 12/12/2023 10:38 AM [facility] Bilirubin Total 0.4 0.2 - 1.2 mg/dL 12/12/2023 10:38 AM [facility] Alkaline Phosphatase 78 40 - 150 U/L 12/12/2023 10:38 AM [facility] ALT 26 5 - 55 U/L 12/12/2023 10:38 AM [facility] AST 15 5 - 34 U/L 12/12/2023 10:38 AM [facility] Anion Gap 10 6 - 16 12/12/2023 10:38 AM [facility] BUN/Creatinine Ratio 16 7 - 23 12/12/2023 10:38 AM [facility] Osmolality Calculated 294 275 - 295 mOsm/kg 12/12/2023 10:38 AM [facility] Albumin/Globulin Ratio 1.1 1.1 - 2.3 12/12/2023 10:38 AM [facility] eGFR by CKD-EPI >90 >=90 mL/min/1.7 3 m2 12/12/2023 10:38 AM [facility] Blood BLOOD SPECIMEN / Unknown Venipuncture / Unknown 12/12/2023 10:00 AM CDT 12/12/2023 10:08 AM CDT Britni Winston PA-C LAB - CHEMISTRY ORDAzul NAIDU [address] [address], [facility] [phone] * PHOSPHORUS BLOOD (12/12/2023 10:00 AM CDT) Phosphorus 3.7 2.9 - 5.1 mg/dL 12/12/2023 10:38 AM T [facility] Blood BLOOD SPECIMEN / Unknown Venipuncture / Unknown 12/12/2023 10:00 AM CDT 12/12/2023 10:08 AM CDT Britni Winston PA-C LAB - CHEMISTRY ORDAzul NAIDU [address] [address], [place] [phone] * TYPE + SCREEN PANEL (12/08/2023 9:59 AM CDT) Antibody Screen NEG 10:42 AM CDT [facility] ABO Rh O POS 12/08/2023 10:42 AM CDT [facility] Blood Bank BLOOD SPECIMEN / Unknown Venipuncture / Unknown 12/08/2023 9:59 AM CDT 12/08/2023 9:59 AM CDT Britni Winston PA-C LAB - BLOOD BANK ORD ERABLES [facility] [address] [place] [address], [place] [phone] * TYPE + SCREEN PANEL (12/01/2023 8:52 AM CDT) Antibody Screen NEG 9:51 AM CDT [facility] ABO Rh O POS 12/01/2023 9:51 AM CDT [facility] Blood Bank BLOOD SPECIMEN / Unknown Venipuncture / Unknown 12/01/2023 8:52 AM CDT 12/01/2023 9:04 AM CDT Britni Winston PA-C LAB - BLOOD BANK ORD ERAJANES [facility] [address] [place] [address], [place] [phone] * URIC ACID BLOOD (12/01/2023 8:52 AM CDT) Uric Acid 4.4 2.6 - 6.0 mg/dL 12/01/2023 9:35 AM CDT [facility] Blood BLOOD SPECIMEN / Unknown Venipuncture / Unknown 12/01/2023 8:52 AM CDT 12/01/2023 9:01 AM CDT Britni Winston PA-C LAB - CHEMISTRY ORDAzul NAIDU [facility] [address] [place] [address], [facility] [phone] * (ABNORMAL) LDH BLOOD (12/01/2023 8:52 AM CDT) [facility] LDH Total 295(H) 125 - 243 Units/L 12/01/2023 9:35 AM [facility] Blood BLOOD SPECIMEN / Unknown Venipuncture / Unknown 12/01/2023 8:52 AM CDT 12/01/2023 9:01 AM CDT Britni Winston PA-C LAB - CHEMISTRY MANJULAE ELYSIA [facility] Organization Address City/State/ZIP Co de Phone Number [facility] [address] [place] [address], [facility] [phone] * (ABNORMAL) CBC WITH DIFFERENTIAL (12/01/2023 8:52 AM CDT) [facility] WBC 4.9 4.0 - 10.7 x10E9/L 12/01/2023 9:29 AM [facility] RBC Count 2.67(L) 3.90 - 5.20 x10E12/L 12/01/2023 9:29 AM [facility] Hemoglobin 7.7(L) 11.9 - 15.8 g/dL 12/01/2023 9:29 AM [facility] Hematocrit 21.9(L) 34.8 - 46.1 % 12/01/2023 9:29 AM [facility] MCV 82.0 80.0 - 98.0 fL 12/01/2023 9:29 AM [facility] MCH 28.8 26.7 - 33.6 pg 12/01/2023 9:29 AM [facility] MCHC 35.2 31.7 - 36.3 g/dL 12/01/2023 9:29 AM [facility] RDW-CV 14.6 11.3 - 14.8 % 12/01/2023 9:29 AM [facility] Platelet Count 61(L) 150 - 420 x10E9/L 12/01/2023 9:29 AM [facility] MPV 10.7 7.8 - 11.4 fL 12/01/2023 9:29 AM [facility] Preliminary Absolute Neutrophil 2.58 1.60 - 7.50 x10E9/L 12/01/2023 9:29 AM [facility] Comment:Preliminary ANC pend ing manual confirmation Neutrophil % 52.9 41.0 - 74.0 % 12/01/2023 9:29 AM [facility] Lymphocyte % 17.2 17.0 - 47.0 % 12/01/2023 9:29 AM [facility] Monocyte % 28.3(H) 3.0 - 11.0 % 12/01/2023 9:29 AM [facility] Eosinophil % 0.0 0.0 - 7.0 % 12/01/2023 9:29 AM [facility] Basophil % 0.0 0.0 - 1.6 % 12/01/2023 9:29 AM [facility] Immature Granulocytes % 1.6(H) 0.0 - 1.0 % 12/01/2023 9:29 AM [facility] Neutrophil Absolute 2.58 1.60 - 7.50 x10E9/L 12/01/2023 9:29 AM [facility] Lymphocyte Absolute 0.84(L) 1.00 - 4.40 x10E9/L 12/01/2023 9:29 AM [facility] Monocyte Absolute 1.38(H) 0.15 - 1.00 x10E9/L 12/01/2023 9:29 AM [facility] Eosinophil Absolute 0.00 0.00 - 0.60 x10E9/L 12/01/2023 9:29 AM [facility] Basophil Absolute 0.00 0.00 - 0.13 x10E9/L 12/01/2023 9:29 AM [facility] NRBC 1.0(H) <=0.0 /100 WBC 12/01/2023 9:29 AM [facility] Blood BLOOD SPECIMEN / Unknown Venipuncture / Unknown 12/01/2023 8:52 AM CDT 12/01/2023 9:07 AM CDT Britni Winston PA-C LAB - HEMATOLOGY ORD ERABLES [address] [address], [place] [phone] * MAGNESIUM BLOOD (12/01/2023 8:52 AM CDT) Magnesium 1.9 1.6 - 2.6 mg/dL 12/01/2023 9:35 AM [facility] Blood BLOOD SPECIMEN / Unknown Venipuncture / Unknown 12/01/2023 8:52 AM CDT 12/01/2023 9:01 AM CDT Britni Winston PA-C LAB - CHEMISTRY ORDE RABLES Performing Organization Address [facility]/ZIP Co de Phone Number [address] [address], [facility] [phone] * (ABNORMAL) COMPREHENSIVE METABOLIC PANEL (12/01/2023 8:52 AM CDT) BUN 8 7 - 26 mg/dL 12/01/2023 9:35 AM [facility] Creatinine 0.77 0.56 - 0.96 mg/dL 12/01/2023 9:35 AM [facility] Sodium 141 136 - 145 mmol/L 12/01/2023 9:35 AM [facility] Potassium 3.5 3.5 - 4.5 mmol/L 12/01/2023 9:35 AM [facility] Chloride 111(H) 98 - 107 mmol/L 12/01/2023 9:35 AM [facility] CO2 21(L) 22 - 29 mmol/L 12/01/2023 9:35 AM [facility] Glucose 158(H) 70 - 115 mg/dL 12/01/2023 9:35 AM [facility] Calcium 9.3 8.4 - 10.2 mg/dL 12/01/2023 9:35 AM [facility] Protein Total 6.7 6.0 - 8.3 g/dL 12/01/2023 9:35 AM [facility] Albumin 3.4 3.4 - 5.0 g/dL 12/01/2023 9:35 AM [facility] Bilirubin Total 0.5 0.2 - 1.2 mg/dL 12/01/2023 9:35 AM [facility] Alkaline Phosphatase 81 40 - 150 U/L 12/01/2023 9:35 AM [facility] ALT 44 5 - 55 U/L 12/01/2023 9:35 AM [facility] AST 24 5 - 34 U/L 12/01/2023 9:35 AM [facility] Anion Gap 9 6 - 16 12/01/2023 9:35 AM [facility] BUN/Creatinine Ratio 10 7 - 23 12/01/2023 9:35 AM [facility] Osmolality Calculated 294 275 - 295 mOsm/kg 12/01/2023 9:35 AM [facility] Albumin/Globulin Ratio 1.0(L) 1.1 - 2.3 12/01/2023 9:35 AM [facility] eGFR by CKD-EPI >90 >=90 mL/min/1.7 3 m2 12/01/2023 9:35 AM [facility] Blood BLOOD SPECIMEN / Unknown Venipuncture / Unknown 12/01/2023 8:52 AM CDT 12/01/2023 9:01 AM CDT Britni Winston PA-C LAB - CHEMISTRY MANJULAE ELYSIA [facility] Organization Address City/State/[facility] de Phone Number [facility] [address] [place] [phone], [facility] [phone] * (ABNORMAL) PHOSPHORUS BLOOD (12/01/2023 8:52 AM CDT) Phosphorus 2.7(L) 2.9 - 5.1 mg/dL 12/01/2023 9:35 AM [facility] Blood BLOOD SPECIMEN / Unknown Venipuncture / Unknown 12/01/2023 8:52 AM CDT 12/01/2023 9:01 AM CDT Britni Winston PA-C LAB - CHEMISTRY ORDAzul NAIDU Performing Organization Address City/[facility]/ZIP Co de Phone Number [address] [address], [place] [phone] * TYPE + SCREEN PANEL (11/28/2023 8:37 AM CDT) Antibody Screen NEG 9:21 AM CDT [facility] ABO Rh O POS 11/28/2023 9:21 AM CDT [facility] Blood Bank BLOOD SPECIMEN / Unknown Venipuncture / Unknown 11/28/2023 8:37 AM CDT 11/28/2023 8:45 AM CDT Britni Winston PA-C LAB - BLOOD BANK ORD GELY Performing Organization Address City/[facility]/ZIP Co de Phone Number [facility] [address] [place] [address], [place] [phone] * URIC ACID BLOOD (11/28/2023 8:37 AM CDT) Uric Acid 4.4 2.6 - 6.0 mg/dL 11/28/2023 9:13 AM CDT [facility] Blood BLOOD SPECIMEN / Unknown Venipuncture / Unknown 11/28/2023 8:37 AM CDT 11/28/2023 8:46 AM CDT Britni Winston PA-C LAB - CHEMISTRY JON NAIDU Performing Organization Address City/[facility]/ZIP Co de Phone Number [facility] [address] [address], [place] [phone] * (ABNORMAL) LDH BLOOD (11/28/2023 8:37 AM CDT) LDH Total 308(H) 125 - 243 Units/L 11/28/2023 9:13 AM CDT [facility] Blood BLOOD SPECIMEN / Unknown Venipuncture / Unknown 11/28/2023 8:37 AM CDT 11/28/2023 8:46 AM CDT Britni Winston PA-C LAB - CHEMISTRY ORDE ELYSIA [facility] [address] [place] [address], [facility] [phone] * (ABNORMAL) CBC WITH DIFFERENTIAL (11/28/2023 8:37 AM CDT) WBC 3.7(L) 4.0 - 10.7 x10E9/L 11/28/2023 9:26 AM [facility] RBC Count 2.79(L) 3.90 - 5.20 x10E12/L 11/28/2023 9:26 AM [facility] Hemoglobin 7.9(L) 11.9 - 15.8 g/dL 11/28/2023 9:26 AM [facility] Hematocrit 22.2(L) 34.8 - 46.1 % 11/28/2023 9:26 AM [facility] MCV 79.6(L) 80.0 - 98.0 fL 11/28/2023 9:26 AM [facility] MCH 28.3 26.7 - 33.6 pg 11/28/2023 9:26 AM [facility] MCHC 35.6 31.7 - 36.3 g/dL 11/28/2023 9:26 AM [facility] RDW-CV 13.9 11.3 - 14.8 % 11/28/2023 9:26 AM [facility] Platelet Count 46(L) 150 - 420 x10E9/L 11/28/2023 9:26 AM [facility] MPV 11.0 7.8 - 11.4 fL 11/28/2023 9:26 AM [facility] Preliminary Absolute Neutrophil 1.48(L) 1.60 - 7.50 x10E9/L 11/28/2023 9:26 AM [facility] Comment:Preliminary ANC pend ing manual confirmation Neutrophil % 39.9(L) 41.0 - 74.0 % 11/28/2023 9:26 AM [facility] Lymphocyte % 20.2 17.0 - 47.0 % 11/28/2023 9:26 AM [facility] Monocyte % 35.3(H) 3.0 - 11.0 % 11/28/2023 9:26 AM [facility] Eosinophil % 0.0 0.0 - 7.0 % 11/28/2023 9:26 AM [facility] Basophil % 0.0 0.0 - 1.6 % 11/28/2023 9:26 AM [facility] Immature Granulocytes % 4.6(H) 0.0 - 1.0 % 11/28/2023 9:26 AM [facility] Neutrophil Absolute 1.48(L) 1.60 - 7.50 x10E9/L 11/28/2023 9:26 AM [facility] Lymphocyte Absolute 0.75(L) 1.00 - 4.40 x10E9/L 11/28/2023 9:26 AM [facility] Monocyte Absolute 1.31(H) 0.15 - 1.00 x10E9/L 11/28/2023 9:26 AM [facility] Eosinophil Absolute 0.00 0.00 - 0.60 x10E9/L 11/28/2023 9:26 AM [facility] Basophil Absolute 0.00 0.00 - 0.13 x10E9/L 11/28/2023 9:26 AM [facility] NRBC 1.1(H) <=0.0 /100 WBC 11/28/2023 9:26 AM [facility] Blood BLOOD SPECIMEN / Unknown Venipuncture / Unknown 11/28/2023 8:37 AM CDT 11/28/2023 8:46 AM CDT Britin Winston PA-C LAB - HEMATOLOGY ORD ERABLES [facility] [address] [place] [address], [facility] [phone] * MAGNESIUM BLOOD (11/28/2023 8:37 AM CDT) Pathologist [facility] Magnesium 1.9 1.6 - 2.6 mg/dL 11/28/2023 9:13 AM [facility] Blood BLOOD SPECIMEN / Unknown Venipuncture / Unknown 11/28/2023 8:37 AM CDT 11/28/2023 8:46 AM CDT Britni Winston PA-C LAB - CHEMISTRY JON NAIDU [facility] [address] [place] [address], [facility] [phone] * (ABNORMAL) COMPREHENSIVE METABOLIC PANEL (11/28/2023 8:37 AM CDT) [facility] BUN 7 7 - 26 mg/dL 11/28/2023 9:13 AM [facility] Creatinine 0.69 0.56 - 0.96 mg/dL 11/28/2023 9:13 AM [facility] Sodium 142 136 - 145 mmol/L 11/28/2023 9:13 AM [facility] Potassium 3.4(L) 3.5 - 4.5 mmol/L 11/28/2023 9:13 AM [facility] Chloride 110(H) 98 - 107 mmol/L 11/28/2023 9:13 AM [facility] CO2 21(L) 22 - 29 mmol/L 11/28/2023 9:13 AM [facility] Glucose 152(H) 70 - 115 mg/dL 11/28/2023 9:13 AM [facility] Calcium 9.3 8.4 - 10.2 mg/dL 11/28/2023 9:13 AM [facility] Protein Total 6.5 6.0 - 8.3 g/dL 11/28/2023 9:13 AM [facility] Albumin 3.2(L) 3.4 - 5.0 g/dL 11/28/2023 9:13 AM [facility] Bilirubin Total 0.4 0.2 - 1.2 mg/dL 11/28/2023 9:13 AM [facility] Alkaline Phosphatase 79 40 - 150 U/L 11/28/2023 9:13 AM [facility] ALT 60(H) 5 - 55 U/L 11/28/2023 9:13 AM [facility] AST 36(H) 5 - 34 U/L 11/28/2023 9:13 AM [facility] Anion Gap 11 6 - 16 11/28/2023 9:13 AM [facility] BUN/Creatinine Ratio 10 7 - 23 11/28/2023 9:13 AM [facility] Osmolality Calculated 295 275 - 295 mOsm/kg 11/28/2023 9:13 AM [facility] Albumin/Globulin Ratio 1.0(L) 1.1 - 2.3 11/28/2023 9:13 AM [facility] eGFR by CKD-EPI >90 >=90 mL/min/1.7 3 m2 11/28/2023 9:13 AM [facility] Blood BLOOD SPECIMEN / Unknown Venipuncture / Unknown 11/28/2023 8:37 AM CDT 11/28/2023 8:46 AM CDT Britni Winston PA-C LAB - CHEMISTRY JON NAIDU Performing Organization Address City/[facility]/ZIP Co de Phone Number [address] [address], [facility] [phone] * PHOSPHORUS BLOOD (11/28/2023 8:37 AM CDT) Phosphorus 3.2 2.9 - 5.1 mg/dL 11/28/2023 9:13 AM T [facility] Blood BLOOD SPECIMEN / Unknown Venipuncture / Unknown 11/28/2023 8:37 AM CDT 11/28/2023 8:46 AM CDT Britni Winston PA-C LAB - CHEMISTRY ORDAzul NAIDU [address] [address], [place] [phone] * URIC ACID BLOOD (11/26/2023 9:46 AM CDT) [facility] Uric Acid 3.8 2.6 - 6.0 mg/dL 11/26/2023 10:39 AM CDT [facility] Blood BLOOD SPECIMEN / Unknown Venipuncture / Unknown 11/26/2023 9:46 AM CDT 11/26/2023 10:00 AM CDT Britni Winston PA-C LAB - CHEMISTRY JON NAIDU Performing Organization Address City/[facility]/ZIP Co de Phone Number [address] [address], [facility] [phone] * (ABNORMAL) LDH BLOOD (11/26/2023 9:46 AM CDT) [facility] LDH Total 261(H) 125 - 243 Units/L 11/26/2023 10:39 AM CDT [facility] Blood BLOOD SPECIMEN / Unknown Venipuncture / Unknown 11/26/2023 9:46 AM CDT 11/26/2023 10:00 AM CDT Britni Winston PA-C LAB - CHEMISTRY JON NAIDU Performing Organization Address [facility]/ZIP Co de Phone Number [address] [address], [facility] [phone] * (ABNORMAL) CBC WITH DIFFERENTIAL (11/26/2023 9:46 AM CDT) [facility] WBC 3.0(L) 4.0 - 10.7 x10E9/L 11/26/2023 11:06 AM [facility] RBC Count 2.81(L) 3.90 - 5.20 x10E12/L 11/26/2023 11:06 AM [facility] Hemoglobin 8.2(L) 11.9 - 15.8 g/dL 11/26/2023 11:06 AM [facility] Hematocrit 22.4(L) 34.8 - 46.1 % 11/26/2023 11:06 AM [facility] MCV 79.7(L) 80.0 - 98.0 fL 11/26/2023 11:06 AM [facility] MCH 29.2 26.7 - 33.6 pg 11/26/2023 11:06 AM [facility] MCHC 36.6(H) 31.7 - 36.3 g/dL 11/26/2023 11:06 AM [facility] RDW-CV 13.3 11.3 - 14.8 % 11/26/2023 11:06 AM [facility] Platelet Count 45(L) 150 - 420 x10E9/L 11/26/2023 11:06 AM [facility] MPV 11.5(H) 7.8 - 11.4 fL 11/26/2023 11:06 AM [facility] Preliminary Absolute Neutrophil 1.09(L) 1.60 - 7.50 x10E9/L 11/26/2023 11:06 AM [facility] Comment:Preliminary ANC pend ing manual confirmation NRBC 1.0(H) <=0.0 /100 WBC 11/26/2023 11:06 AM [facility] Blood BLOOD SPECIMEN / Unknown Venipuncture / Unknown 11/26/2023 9:46 AM CDT 11/26/2023 10:00 AM CDT Britni Winston PA-C LAB - HEMATOLOGY ORD ERABLES [address] [address], [facility] [phone] * MAGNESIUM BLOOD (11/26/2023 9:46 AM CDT) Magnesium 1.7 1.6 - 2.6 mg/dL 11/26/2023 10:39 AM [facility] Blood BLOOD SPECIMEN / Unknown Venipuncture / Unknown 11/26/2023 9:46 AM CDT 11/26/2023 10:00 AM CDT Britni Winston PA-C LAB - CHEMISTRY ORDE RABQI [facility] [address] [place] [address], [facility] [phone] * (ABNORMAL) COMPREHENSIVE METABOLIC PANEL (11/26/2023 9:46 AM [facility]) BUN 7 7 - 26 mg/dL 11/26/2023 10:39 AM [facility] Creatinine 0.63 0.56 - 0.96 mg/dL 11/26/2023 10:39 AM [facility] Sodium 139 136 - 145 mmol/L 11/26/2023 10:39 AM [facility] Potassium 3.3(L) 3.5 - 4.5 mmol/L 11/26/2023 10:39 AM [facility] Chloride 110(H) 98 - 107 mmol/L 11/26/2023 10:39 AM [facility] CO2 20(L) 22 - 29 mmol/L 11/26/2023 10:39 AM [facility] Glucose 175(H) 70 - 115 mg/dL 11/26/2023 10:39 AM [facility] Calcium 9.3 8.4 - 10.2 mg/dL 11/26/2023 10:39 AM [facility] Protein Total 6.5 6.0 - 8.3 g/dL 11/26/2023 10:39 AM [facility] Albumin 3.0(L) 3.4 - 5.0 g/dL 11/26/2023 10:39 AM [facility] Bilirubin Total 0.4 0.2 - 1.2 mg/dL 11/26/2023 10:39 AM [facility] Alkaline Phosphatase 78 40 - 150 U/L 11/26/2023 10:39 AM [facility] ALT 53 5 - 55 U/L 11/26/2023 10:39 AM [facility] AST 25 5 - 34 U/L 11/26/2023 10:39 AM [facility] Anion Gap 9 6 - 16 11/26/2023 10:39 AM [facility] BUN/Creatinine Ratio 11 7 - 23 11/26/2023 10:39 AM [facility] Osmolality Calculated 290 275 - 295 mOsm/kg 11/26/2023 10:39 AM CDT [facility] Albumin/Globulin Ratio 0.9(L) 1.1 - 2.3 11/26/2023 10:39 AM CDT [facility] eGFR by CKD-EPI >90 >=90 mL/min/1.7 3 m2 11/26/2023 10:39 AM CDT [facility] Blood BLOOD SPECIMEN / Unknown Venipuncture / Unknown 11/26/2023 9:46 AM CDT 11/26/2023 10:00 AM CDT Britni Winston PA-C LAB - CHEMISTRY JON NAIDU [address] [address], [facility] [phone] * (ABNORMAL) PHOSPHORUS BLOOD (11/26/2023 9:46 AM CDT) Phosphorus 2.6(L) 2.9 - 5.1 mg/dL 11/26/2023 10:39 AM CDT [facility] Blood BLOOD SPECIMEN / Unknown Venipuncture / Unknown 11/26/2023 9:46 AM CDT 11/26/2023 10:00 AM CDT Britni Winston PA-C LAB - CHEMISTRY JON NAIDU [address] [address], [place] [phone] * TYPE + SCREEN PANEL (11/24/2023 12:28 PM CDT) Antibody Screen NEG 1:40 PM CDT [facility] ABO Rh O POS 11/24/2023 1:40 PM CDT [facility] Blood Bank BLOOD SPECIMEN / Unknown Venipuncture / Unknown 11/24/2023 12:28 PM CDT 11/24/2023 12:40 PM CDT Britni Winston PA-C LAB - BLOOD BANK ORD ERAJANES [facility] [address] [place] [address], [facility] [phone] * URIC ACID BLOOD (11/24/2023 10:03 AM CDT) Pathologist [facility] Uric Acid 3.5 2.6 - 6.0 mg/dL 11/24/2023 10:40 AM CDT [facility] Blood BLOOD SPECIMEN / Unknown Venipuncture / Unknown 11/24/2023 10:03 AM CDT 11/24/2023 10:11 AM CDT Britni Winston PA-C LAB - CHEMISTRY JON NAIDU Performing Organization Address City/[facility]/ZIP Co de Phone Number [address] [address], [facility] [phone] * LDH BLOOD (11/24/2023 10:03 AM CDT) [facility] LDH Total 215 125 - 243 Units/L 11/24/2023 10:40 AM CDT [facility] Blood BLOOD SPECIMEN / Unknown Venipuncture / Unknown 11/24/2023 10:03 AM CDT 11/24/2023 10:11 AM CDT Britni Winston PA-C LAB - CHEMISTRY JON NAIDU Performing Organization Address City/[facility]/ZIP Co de Phone Number [address] [address], [facility] [phone] * (ABNORMAL) CBC WITH DIFFERENTIAL (11/24/2023 10:03 AM CDT) Pathologist [facility] WBC 2.0(L) 4.0 - 10.7 x10E9/L 11/24/2023 11:12 AM CDT [facility] RBC Count 2.33(L) 3.90 - 5.20 x10E12/L 11/24/2023 11:12 AM CDT [facility] Hemoglobin 6.6(L) 11.9 - 15.8 g/dL 11/24/2023 11:12 AM [facility] Hematocrit 18.2(L) 34.8 - 46.1 % 11/24/2023 11:12 AM [facility] MCV 78.1(L) 80.0 - 98.0 fL 11/24/2023 11:12 AM [facility] MCH 28.3 26.7 - 33.6 pg 11/24/2023 11:12 AM [facility] MCHC 36.3 31.7 - 36.3 g/dL 11/24/2023 11:12 AM [facility] RDW-CV 13.1 11.3 - 14.8 % 11/24/2023 11:12 AM [facility] Platelet Count 24(L) 150 - 420 x10E9/L 11/24/2023 11:12 AM [facility] MPV 10.9 7.8 - 11.4 fL 11/24/2023 11:12 AM [facility] Preliminary Absolute Neutrophil 0.37(L) 1.60 - 7.50 x10E9/L 11/24/2023 11:12 AM [facility] Comment:Preliminary ANC pend ing manual confirmation Blood BLOOD SPECIMEN / Unknown Venipuncture / Unknown 11/24/2023 10:03 AM CDT 11/24/2023 10:11 AM CDT Britni Winston PA-C LAB - HEMATOLOGY ORD ERABLES Performing Organization Address [facility]/State/[facility] Co de Phone Number [facility] [address] [place] [phone] [phone] * MAGNESIUM BLOOD (11/24/2023 10:03 AM CDT) Magnesium 1.7 1.6 - 2.6 mg/dL 11/24/2023 10:40 AM [facility] Blood BLOOD SPECIMEN / Unknown Venipuncture / Unknown 11/24/2023 10:03 AM CDT 11/24/2023 10:11 AM CDT Britni Winston PA-C LAB - CHEMISTRY JON NAIDU [facility] [address] [place] [address], [facility] [phone] * (ABNORMAL) COMPREHENSIVE METABOLIC PANEL (11/24/2023 10:03 AM [facility]) BUN 6(L) 7 - 26 mg/dL 11/24/2023 10:40 AM [facility] Creatinine 0.65 0.56 - 0.96 mg/dL 11/24/2023 10:40 AM [facility] Sodium 140 136 - 145 mmol/L 11/24/2023 10:40 AM [facility] Potassium 3.2(L) 3.5 - 4.5 mmol/L 11/24/2023 10:40 AM [facility] Chloride 109(H) 98 - 107 mmol/L 11/24/2023 10:40 AM [facility] CO2 22 22 - 29 mmol/L 11/24/2023 10:40 AM [facility] Glucose 125(H) 70 - 115 mg/dL 11/24/2023 10:40 AM [facility] Calcium 9.4 8.4 - 10.2 mg/dL 11/24/2023 10:40 AM [facility] Protein Total 6.3 6.0 - 8.3 g/dL 11/24/2023 10:40 AM [facility] Albumin 3.0(L) 3.4 - 5.0 g/dL 11/24/2023 10:40 AM [facility] Bilirubin Total 0.4 0.2 - 1.2 mg/dL 11/24/2023 10:40 AM [facility] Alkaline Phosphatase 75 40 - 150 U/L 11/24/2023 10:40 AM [facility] ALT 76(H) 5 - 55 U/L 11/24/2023 10:40 AM [facility] AST 40(H) 5 - 34 U/L 11/24/2023 10:40 AM [facility] Anion Gap 9 6 - 16 11/24/2023 10:40 AM [facility] BUN/Creatinine Ratio 9 7 - 23 11/24/2023 10:40 AM [facility] Osmolality Calculated 289 275 - 295 mOsm/kg 11/24/2023 10:40 AM [facility] Albumin/Globulin Ratio 0.9(L) 1.1 - 2.3 11/24/2023 10:40 AM [facility] eGFR by CKD-EPI >90 >=90 mL/min/1.7 3 m2 11/24/2023 10:40 AM [facility] Blood BLOOD SPECIMEN / Unknown Venipuncture / Unknown 11/24/2023 10:03 AM CDT 11/24/2023 10:11 AM CDT Britni Winston PA-C LAB - CHEMISTRY JON NAIDU Performing Organization Address City/[facility]/ZIP Co de Phone Number [address] [address], [place] [phone] * (ABNORMAL) PHOSPHORUS BLOOD (11/24/2023 10:03 AM CDT) Phosphorus 2.8(L) 2.9 - 5.1 mg/dL 11/24/2023 10:40 AM [facility] Blood BLOOD SPECIMEN / Unknown Venipuncture / Unknown 11/24/2023 10:03 AM CDT 11/24/2023 10:11 AM CDT Britni Winston PA-C LAB - CHEMISTRY JON NAIDU [address] [address], [place] [phone] * TYPE + SCREEN PANEL (11/21/2023 10:45 AM SCREW REMOVER) Antibody Screen NEG 11:47 AM SCREW REMOVER [facility] ABO Rh O POS 11/21/2023 11:47 AM SCREW REMOVER [facility] Blood Bank BLOOD SPECIMEN / Unknown Venipuncture / Unknown 11/21/2023 10:45 AM SCREW REMOVER 11/21/2023 10:53 AM SCREW REMOVER Britni Winston PA-C LAB - BLOOD BANK ORD ERABLES Performing Organization Address [facility]/ZIP Co de Phone Number [facility] [address] [place] [address], [place] [phone] * URIC ACID BLOOD (11/21/2023 10:45 AM S[facility] REMOVER) Uric Acid 3.6 2.6 - 6.0 mg/dL 11/21/2023 11:18 AM SCREW REMOVER [facility] Blood BLOOD SPECIMEN / Unknown Venipuncture / Unknown 11/21/2023 10:45 AM SCREW REMOVER 11/21/2023 10:52 AM SCREW REMOVER Britni Winston PA-C LAB - CHEMISTRY JON NAIDU Performing Organization Address [facility] Co de Phone Number [address] [address], [place] [phone] * LDH BLOOD (11/21/2023 10:45 AM SCREW REMOVER) LDH Total 193 125 - 243 Units/L 11/21/2023 11:18 AM SCREW REMOVER [facility] Blood BLOOD SPECIMEN / Unknown Venipuncture / Unknown 11/21/2023 10:45 AM SCREW REMOVER 11/21/2023 10:52 AM SCREW REMOVER Britni Winston PA-C LAB - CHEMISTRY ORDE ELYSIA Performing Organization Address City/[facility]/ZIP Co de Phone Number [address] [address], [place] [phone] * (ABNORMAL) CBC WITH DIFFERENTIAL (11/21/2023 10:45 AM SCREW REMOVER) WBC 0.4(LL) 4.0 - 10.7 x10E9/L 11/21/2023 1:33 PM SCREW REMOVER [facility] Comment:No differential repo rted. WBC count <0.5 RBC Count 2.55(L) 3.90 - 5.20 x10E12/L 11/21/2023 1:33 PM [facility] Hemoglobin 7.4(L) 11.9 - 15.8 g/dL 11/21/2023 1:33 PM [facility] Hematocrit 19.9(L) 34.8 - 46.1 % 11/21/2023 1:33 PM [facility] MCV 78.0(L) 80.0 - 98.0 fL 11/21/2023 1:33 PM [facility] MCH 29.0 26.7 - 33.6 pg 11/21/2023 1:33 PM [facility] MCHC 37.2(H) 31.7 - 36.3 g/dL 11/21/2023 1:33 PM [facility] RDW-CV 12.8 11.3 - 14.8 % 11/21/2023 1:33 PM [facility] Platelet Count 23(L) 150 - 420 x10E9/L 11/21/2023 1:33 PM [facility] MPV 11.0 7.8 - 11.4 fL 11/21/2023 1:33 PM [facility] Blood BLOOD SPECIMEN / Unknown Venipuncture / Unknown 11/21/2023 10:45 AM SCREW REMOVER 11/21/2023 10:52 AM SCREW REMOVER Britni Winston PA-C LAB - HEMATOLOGY ORD ERABLES [address] [address], [facility] [phone] * MAGNESIUM BLOOD (11/21/2023 10:45 AM SCREW REMOVER) Magnesium 1.7 1.6 - 2.6 mg/dL 11/21/2023 11:18 AM [facility] Blood BLOOD SPECIMEN / Unknown Venipuncture / Unknown 11/21/2023 10:45 AM SCREW REMOVER 11/21/2023 10:52 AM SCREW REMOVER Britni Winston PA-C LAB - CHEMISTRY ORDE ELYSIA [address] [place] [address] [phone] * (ABNORMAL) COMPREHENSIVE METABOLIC PANEL (11/21/2023 10:45 AM [facility]) BUN 10 7 - 26 mg/dL 11/21/2023 11:18 AM [facility] Creatinine 0.64 0.56 - 0.96 mg/dL 11/21/2023 11:18 AM [facility] Sodium 138 136 - 145 mmol/L 11/21/2023 11:18 AM [facility] Potassium 3.6 3.5 - 4.5 mmol/L 11/21/2023 11:18 AM [facility] Chloride 110(H) 98 - 107 mmol/L 11/21/2023 11:18 AM [facility] CO2 20(L) 22 - 29 mmol/L 11/21/2023 11:18 AM [facility] Glucose 206(H) 70 - 115 mg/dL 11/21/2023 11:18 AM [facility] Calcium 9.4 8.4 - 10.2 mg/dL 11/21/2023 11:18 AM [facility] Protein Total 6.6 6.0 - 8.3 g/dL 11/21/2023 11:18 AM [facility] Albumin 3.2(L) 3.4 - 5.0 g/dL 11/21/2023 11:18 AM [facility] Bilirubin Total 0.4 0.2 - 1.2 mg/dL 11/21/2023 11:18 AM [facility] Alkaline Phosphatase 75 40 - 150 U/L 11/21/2023 11:18 AM [facility] ALT 20 5 - 55 U/L 11/21/2023 11:18 AM [facility] AST 14 5 - 34 U/L 11/21/2023 11:18 AM [facility] Anion Gap 8 6 - 16 11/21/2023 11:18 AM [facility] BUN/Creatinine Ratio 16 7 - 23 11/21/2023 11:18 AM [facility] Osmolality Calculated 291 275 - 295 mOsm/kg 11/21/2023 11:18 AM [facility] Albumin/Globulin Ratio 0.9(L) 1.1 - 2.3 11/21/2023 11:18 AM SCREW REMOVER [facility] eGFR by CKD-EPI >90 >=90 mL/min/1.7 3 m2 11/21/2023 11:18 AM [facility] Blood BLOOD SPECIMEN / Unknown Venipuncture / Unknown 11/21/2023 10:45 AM SCREW REMOVER 11/21/2023 10:52 AM SCREW REMOVER Britni Winston PA-C LAB - CHEMISTRY JON NAIDU [address] [address], [place] [phone] * (ABNORMAL) PHOSPHORUS BLOOD (11/21/2023 10:45 AM SCREW REMOVER) Phosphorus 2.2(L) 2.9 - 5.1 mg/dL 11/21/2023 11:18 AM SCREW REMOVER [facility] Blood BLOOD SPECIMEN / Unknown Venipuncture / Unknown 11/21/2023 10:45 AM SCREW REMOVER 11/21/2023 10:52 AM SCREW REMOVER Britni Winston PA-C LAB - CHEMISTRY JON NAIDU Performing Organization Address City/[facility]/ZIP Co de Phone Number [address] [address], [place] [phone] * TYPE + SCREEN PANEL (11/19/2023 8:40 AM SCREW REMOVER) Antibody Screen NEG 9:39 AM SCREW REMOVER [facility] ABO Rh O POS 11/19/2023 9:39 AM SCREW REMOVER [facility] Blood Bank BLOOD SPECIMEN / Unknown Venipuncture / Unknown 11/19/2023 8:40 AM SCREW REMOVER 11/19/2023 8:48 AM SCREW REMOVER Britni Winston PA-C LAB - BLOOD BANK MANJULA HONG [facility] [address] [place] [address], [place] [phone] * URIC ACID BLOOD (11/19/2023 8:40 AM SCREW REMOVER) [facility] Uric Acid 4.0 2.6 - 6.0 mg/dL 11/19/2023 9:17 AM [facility] Blood BLOOD SPECIMEN / Unknown Venipuncture / Unknown 11/19/2023 8:40 AM SCREW REMOVER 11/19/2023 8:48 AM SCREW REMOVER Britni Winston PA-C LAB - CHEMISTRY JON NAIDU Performing Organization Address City/[facility]/ZIP Co de Phone Number [address] [address], [facility] [phone] * LDH BLOOD (11/19/2023 8:40 AM SCREW REMOVER) [facility] LDH Total 203 125 - 243 Units/L 11/19/2023 9:17 AM [facility] Blood BLOOD SPECIMEN / Unknown Venipuncture / Unknown 11/19/2023 8:40 AM SCREW REMOVER 11/19/2023 8:48 AM SCREW REMOVER Britni Winston PA-C LAB - CHEMISTRY JON NAIDU [address] [address], [facility] [phone] * (ABNORMAL) CBC WITH DIFFERENTIAL (11/19/2023 8:40 AM SCREW REMOVER) [facility] WBC 0.4(LL) 4.0 - 10.7 x10E9/L 11/19/2023 11:25 AM [facility] Comment:No Manual Differenti al performed. WBC count < 0.5 RBC Count 2.95(L) 3.90 - 5.20 x10E12/L 11/19/2023 11:25 AM [facility] Hemoglobin 8.4(L) 11.9 - 15.8 g/dL 11/19/2023 11:25 AM [facility] Hematocrit 22.9(L) 34.8 - 46.1 % 11/19/2023 11:25 AM [facility] MCV 77.6(L) 80.0 - 98.0 fL 11/19/2023 11:25 AM [facility] MCH 28.5 26.7 - 33.6 pg 11/19/2023 11:25 AM [facility] MCHC 36.7(H) 31.7 - 36.3 g/dL 11/19/2023 11:25 AM [facility] RDW-CV 13.1 11.3 - 14.8 % 11/19/2023 11:25 AM [facility] Platelet Count 10(LL) 150 - 420 x10E9/L 11/19/2023 11:25 AM [facility] MPV 9.5 7.8 - 11.4 fL 11/19/2023 11:25 AM [facility] Blood BLOOD SPECIMEN / Unknown Venipuncture / Unknown 11/19/2023 8:40 AM SCREW REMOVER 11/19/2023 8:48 AM SCREW REMOVER Britni Winston PA-C LAB - HEMATOLOGY ORD ERABLES [address] [address], [facility] [phone] * MAGNESIUM BLOOD (11/19/2023 8:40 AM SCREW REMOVER) Magnesium 1.8 1.6 - 2.6 mg/dL 11/19/2023 9:17 AM [facility] Blood BLOOD SPECIMEN / Unknown Venipuncture / Unknown 11/19/2023 8:40 AM SCREW REMOVER 11/19/2023 8:48 AM SCREW REMOVER Britni Winston PA-C LAB - CHEMISTRY ORDE RABLES [address] [address], [facility] [phone] * (ABNORMAL) COMPREHENSIVE METABOLIC PANEL (11/19/2023 8:40 AM SCREW REMOVER) BUN 12 7 - 26 mg/dL 11/19/2023 9:17 AM [facility] Creatinine 0.65 0.56 - 0.96 mg/dL 11/19/2023 9:17 AM [facility] Sodium 141 136 - 145 mmol/L 11/19/2023 9:17 AM [facility] Potassium 3.8 3.5 - 4.5 mmol/L 11/19/2023 9:17 AM [facility] Chloride 111(H) 98 - 107 mmol/L 11/19/2023 9:17 AM [facility] CO2 20(L) 22 - 29 mmol/L 11/19/2023 9:17 AM [facility] Glucose 153(H) 70 - 115 mg/dL 11/19/2023 9:17 AM [facility] Calcium 9.2 8.4 - 10.2 mg/dL 11/19/2023 9:17 AM [facility] Protein Total 6.8 6.0 - 8.3 g/dL 11/19/2023 9:17 AM [facility] Albumin 3.4 3.4 - 5.0 g/dL 11/19/2023 9:17 AM [facility] Bilirubin Total 0.7 0.2 - 1.2 mg/dL 11/19/2023 9:17 AM [facility] Alkaline Phosphatase 81 40 - 150 U/L 11/19/2023 9:17 AM [facility] ALT 26 5 - 55 U/L 11/19/2023 9:17 AM [facility] AST 13 5 - 34 U/L 11/19/2023 9:17 AM [facility] Anion Gap 10 6 - 16 11/19/2023 9:17 AM [facility] BUN/Creatinine Ratio 18 7 - 23 11/19/2023 9:17 AM [facility] Osmolality Calculated 295 275 - 295 mOsm/kg 11/19/2023 9:17 AM [facility] Albumin/Globulin Ratio 1.0(L) 1.1 - 2.3 11/19/2023 9:17 AM [facility] eGFR by CKD-EPI >90 >=90 mL/min/1.7 3 m2 11/19/2023 9:17 AM [facility] Blood BLOOD SPECIMEN / Unknown Venipuncture / Unknown 11/19/2023 8:40 AM [facility] 11/19/2023 8:48 AM [facility] Britni Winston PA-C LAB - CHEMISTRY JON NAIDU [address] [address], [place] [phone] * PHOSPHORUS BLOOD (11/19/2023 8:40 AM [facility]) Phosphorus 2.9 2.9 - 5.1 mg/dL 11/19/2023 9:17 AM [facility] Blood BLOOD SPECIMEN / Unknown Venipuncture / Unknown 11/19/2023 8:40 AM [facility] 11/19/2023 8:48 AM [facility] Britni Winston PA-C LAB - CHEMISTRY JON NAIDU Performing Organization Address City/[facility]/ZIP Co de Phone Number [address] [address], [place] [phone] * TYPE + SCREEN PANEL (11/17/2023 9:46 AM [facility]) Antibody Screen NEG 10:46 AM [facility] B[facility]OD [facility] LAB ABO Rh O POS 11/17/2023 10:46 AM [facility] LAB Blood Bank BLOOD SPECIMEN / Unknown Venipuncture / Unknown 11/17/2023 9:46 AM [facility] 11/17/2023 9:54 AM [facility] Britni Winston PA-C LAB - BLOOD BANK MANJULA HONG [facility] [address] [place] [address], [place] [phone] * URIC ACID BLOOD (11/17/2023 9:46 AM [facility]) Uric Acid 4.0 2.6 - 6.0 mg/dL 11/17/2023 10:37 AM [facility] Blood BLOOD SPECIMEN / Unknown Venipuncture / Unknown 11/17/2023 9:46 AM [facility] 11/17/2023 10:06 AM [facility] Britni Winston PA-C LAB - CHEMISTRY ORDAzul NAIDU [address] [address], [facility] [phone] * LDH BLOOD (11/17/2023 9:46 AM [facility]) Pathologist [facility] LDH Total 203 125 - 243 Units/L 11/17/2023 10:37 AM [facility] Blood BLOOD SPECIMEN / Unknown Venipuncture / Unknown 11/17/2023 9:46 AM [facility] 11/17/2023 10:06 AM [facility] Britni Winston PA-C LAB - CHEMISTRY JON NAIDU Performing Organization Address [facility]/ZIP Co de Phone Number [address] [address], [facility] [phone] * (ABNORMAL) CBC WITH DIFFERENTIAL (11/17/2023 9:46 AM [facility]) [facility] WBC 0.4(LL) 4.0 - 10.7 x10E9/L 11/17/2023 10:59 AM [facility] Comment:No Manual Differenti al performed. WBC count < 0.5 RBC Count 2.43(L) 3.90 - 5.20 x10E12/L 11/17/2023 10:59 AM [facility] Hemoglobin 7.0(L) 11.9 - 15.8 g/dL 11/17/2023 10:59 AM [facility] Hematocrit 19.7(L) 34.8 - 46.1 % 11/17/2023 10:59 AM [facility] MCV 81.1 80.0 - 98.0 fL 11/17/2023 10:59 AM [facility] MCH 28.8 26.7 - 33.6 pg 11/17/2023 10:59 AM [facility] MCHC 35.5 31.7 - 36.3 g/dL 11/17/2023 10:59 AM [facility] RDW-CV 12.8 11.3 - 14.8 % 11/17/2023 10:59 AM [facility] Platelet Count 24(L) 150 - 420 x10E9/L 11/17/2023 10:59 AM [facility] MPV 10.1 7.8 - 11.4 fL 11/17/2023 10:59 AM [facility] Blood BLOOD SPECIMEN / Unknown Venipuncture / Unknown 11/17/2023 9:46 AM [facility] 11/17/2023 10:06 AM [facility] Britni Winston PA-C LAB - HEMATOLOGY ORD ERABLES [facility] [address] [place] [address], [place] [phone] * MAGNESIUM BLOOD (11/17/2023 9:46 AM [facility]) Magnesium 1.8 1.6 - 2.6 mg/dL 11/17/2023 10:37 AM [facility] Blood BLOOD SPECIMEN / Unknown Venipuncture / Unknown 11/17/2023 9:46 AM [facility] 11/17/2023 10:06 AM [facility] Britni Winston PA-C LAB - CHEMISTRY ORDE RABLES [facility] [address] [place] [address], [place] [phone] * (ABNORMAL) COMPREHENSIVE METABOLIC PANEL (11/17/2023 9:46 AM SCREW REMOVER) BUN 11 7 - 26 mg/dL 11/17/2023 10:37 AM [facility] Creatinine 0.69 0.56 - 0.96 mg/dL 11/17/2023 10:37 AM [facility] Sodium 142 136 - 145 mmol/L 11/17/2023 10:37 AM [facility] Potassium 3.7 3.5 - 4.5 mmol/L 11/17/2023 10:37 AM [facility] Chloride 113(H) 98 - 107 mmol/L 11/17/2023 10:37 AM [facility] CO2 19(L) 22 - 29 mmol/L 11/17/2023 10:37 AM [facility] Glucose 186(H) 70 - 115 mg/dL 11/17/2023 10:37 AM [facility] Calcium 9.2 8.4 - 10.2 mg/dL 11/17/2023 10:37 AM [facility] Protein Total 6.6 6.0 - 8.3 g/dL 11/17/2023 10:37 AM [facility] Albumin 3.4 3.4 - 5.0 g/dL 11/17/2023 10:37 AM [facility] Bilirubin Total 0.5 0.2 - 1.2 mg/dL 11/17/2023 10:37 AM [facility] Alkaline Phosphatase 75 40 - 150 U/L 11/17/2023 10:37 AM [facility] ALT 29 5 - 55 U/L 11/17/2023 10:37 AM [facility] AST 16 5 - 34 U/L 11/17/2023 10:37 AM [facility] Anion Gap 10 6 - 16 11/17/2023 10:37 AM [facility] BUN/Creatinine Ratio 16 7 - 23 11/17/2023 10:37 AM [facility] Osmolality Calculated 298(H) 275 - 295 mOsm/kg 11/17/2023 10:37 AM [facility] Albumin/Globulin Ratio 1.1 1.1 - 2.3 11/17/2023 10:37 AM [facility] eGFR by CKD-EPI >90 >=90 mL/min/1.7 3 m2 11/17/2023 10:37 AM [facility] Blood BLOOD SPECIMEN / Unknown Venipuncture / Unknown 11/17/2023 9:46 AM [facility] 11/17/2023 10:06 AM [facility] Britni Winston PA-C LAB - CHEMISTRY JON Alonzo Organization Address City/State/ZIP Co de Phone Number [facility] [address] [place] [address], [facility] [phone] * (ABNORMAL) PHOSPHORUS BLOOD (11/17/2023 9:46 AM SCREW REMOVER) Pathologist [facility] Phosphorus 2.7(L) 2.9 - 5.1 mg/dL 11/17/2023 10:37 AM [facility] Blood BLOOD SPECIMEN / Unknown Venipuncture / Unknown 11/17/2023 9:46 AM SCREW REMOVER 11/17/2023 10:06 AM SCREW REMOVER Britni Winston PA-C LAB - CHEMISTRY MANJULAE ELYSIA [facility] Organization Address City/State/ZIP Co de Phone Number [facility] [address] [place] [address], [facility] [phone] * (ABNORMAL) CBC WITH DIFFERENTIAL (11/14/2023 3:48 PM SCREW REMOVER) Pathologist [facility] WBC 0.3(LL) 4.0 - 10.7 x10E9/L 11/14/2023 [...] 7.8 - 11.4 fL 11/14/2023 5:30 PM SCREW REMOVER [facility] Blood BLOOD SPECIMEN / Unknown Venipuncture / Unknown 11/14/2023 3:48 PM SCREW REMOVER 11/14/2023 3:55 PM SCREW REMOVER Britni Winston PA-C LAB - HEMATOLOGY ORD ERABLES [address] [address], [place] [phone] * TYPE + SCREEN PANEL (11/14/2023 1:14 PM SCREW REMOVER) Antibody Screen NEG 2:21 PM SCREW REMOVER [facility] ABO Rh O POS 11/14/2023 2:21 PM SCREW REMOVER [facility] Blood Bank BLOOD SPECIMEN / Unknown Venipuncture / Unknown 11/14/2023 1:14 PM SCREW REMOVER 11/14/2023 1:30 PM SCREW REMOVER Britni Winston PA-C LAB - BLOOD BANK ORD ERABLES Performing Organization Address City/[facility]/ZIP Co de Phone Number [facility] [address] [place] [address], [place] [phone] * URIC ACID BLOOD (11/14/2023 1:14 PM SCREW REMOVER) Uric Acid 3.6 2.6 - 6.0 mg/dL 11/14/2023 1:53 PM SCREW REMOVER [facility] Blood BLOOD SPECIMEN / Unknown Venipuncture / Unknown 11/14/2023 1:14 PM SCREW REMOVER 11/14/2023 1:28 PM SCREW REMOVER Britni Winston PA-C LAB - CHEMISTRY ORDE RABQI [address] [address], [place] [phone] * LDH BLOOD (11/14/2023 1:14 PM SCREW REMOVER) LDH Total 210 125 - 243 Units/L 11/14/2023 1:53 PM [facility] Blood BLOOD SPECIMEN / Unknown Venipuncture / Unknown 11/14/2023 1:14 PM SCREW REMOVER 11/14/2023 1:28 PM SCREW REMOVER Britni Winston PA-C LAB - CHEMISTRY JON NAIDU [facility] Organization Address City/State/ZIP Co de Phone Number [facility] [address] [place] [address], [facility] [phone] * (ABNORMAL) CBC WITH DIFFERENTIAL (11/14/2023 1:14 PM SCREW REMOVER) WBC 0.5(LL) 4.0 - 10.7 x10E9/L 11/14/2023 [...] Unknown Venipuncture / Unknown 11/14/2023 1:14 PM SCREW REMOVER 11/14/2023 1:28 PM SCREW REMOVER Britni Winston PA-C LAB - HEMATOLOGY ORD ERABLES Performing Organization Address [facility]/ZIP Co de Phone Number [address] [address], [facility] [phone] * MAGNESIUM BLOOD (11/14/2023 1:14 PM SCREW REMOVER) Magnesium 1.9 1.6 - 2.6 mg/dL 11/14/2023 1:53 PM [facility] Blood BLOOD SPECIMEN / Unknown Venipuncture / Unknown 11/14/2023 1:14 PM SCREW REMOVER 11/14/2023 1:28 PM SCREW REMOVER Britni Winston PA-C LAB - CHEMISTRY ORDE RABQI Performing Organization Address City/[facility]/ZIP Co de Phone Number [address] [address], [facility] [phone] * (ABNORMAL) COMPREHENSIVE METABOLIC PANEL (11/14/2023 1:14 PM SCREW REMOVER) BUN 12 7 - 26 mg/dL 11/14/2023 [...] Unknown Venipuncture / Unknown 11/14/2023 1:14 PM SCREW REMOVER 11/14/2023 1:28 PM [facility] Britni Winston PA-C LAB - CHEMISTRY JON NAIDU [facility] [address] [place] [address], [facility] [phone] * (ABNORMAL) PHOSPHORUS BLOOD (11/14/2023 1:14 PM SCREW REMOVER) Phosphorus 2.8(L) 2.9 - 5.1 mg/dL 11/14/2023 1:53 PM [facility] Blood BLOOD SPECIMEN / Unknown Venipuncture / Unknown 11/14/2023 1:14 PM SCREW REMOVER 11/14/2023 1:28 PM SCREW REMOVER Britni Winston PA-C LAB - CHEMISTRY JON NAIDU Performing Organization Address City/[facility]/ZIP Co de Phone Number [address] [address], [place] [phone] * TYPE + SCREEN PANEL (11/12/2023 12:58 PM SCREW REMOVER) Antibody Screen NEG 2:16 PM SCREW REMOVER [facility] ABO Rh O POS 11/12/2023 2:16 PM SCREW REMOVER [facility] Blood Bank BLOOD SPECIMEN / Unknown Venipuncture / Unknown 11/12/2023 12:58 PM SCREW REMOVER 11/12/2023 1:28 PM SCREW REMOVER Britni Winston PA-C LAB - BLOOD BANK ORD GELY Performing Organization Address [facility]/ZIP Co de Phone Number [facility] [address] [place] [address], [place] [phone] * URIC ACID BLOOD (11/12/2023 11:36 AM SCREW REMOVER) Uric Acid 3.4 2.6 - 6.0 mg/dL 11/12/2023 12:40 PM SCREW REMOVER [facility] Blood BLOOD SPECIMEN / Unknown Venipuncture / Unknown 11/12/2023 11:36 AM SCREW REMOVER 11/12/2023 11:49 AM SCREW REMOVER Britni Winston PA-C LAB - CHEMISTRY JON NAIDU Performing Organization Address City/[facility]/ZIP Co de Phone Number [address] [address], [place] [phone] * LDH BLOOD (11/12/2023 11:36 AM SCREW REMOVER) LDH Total 222 125 - 243 Units/L 11/12/2023 12:21 PM SCREW REMOVER [facility] Blood BLOOD SPECIMEN / Unknown Venipuncture / Unknown 11/12/2023 11:36 AM SCREW REMOVER 11/12/2023 11:49 AM SCREW REMOVER Britni Winston PA-C LAB - CHEMISTRY JON NAIDU [facility] [address] [place] [address], [facility] [phone] * (ABNORMAL) CBC WITH DIFFERENTIAL (11/12/2023 11:36 AM SCREW REMOVER) WBC 0.4(LL) 4.0 - 10.7 x10E9/L 11/12/2023 1:30 PM [facility] Comment:No Manual Differenti al performed. WBC count < 0.5 RBC Count 2.96(L) 3.90 - 5.20 x10E12/L 11/12/2023 1:30 PM [facility] Hemoglobin 8.6(L) 11.9 - 15.8 g/dL 11/12/2023 1:30 PM [facility] Hematocrit 24.3(L) 34.8 - 46.1 % 11/12/2023 1:30 PM [facility] MCV 82.1 80.0 - 98.0 fL 11/12/2023 1:30 PM [facility] MCH 29.1 26.7 - 33.6 pg 11/12/2023 1:30 PM [facility] MCHC 35.4 31.7 - 36.3 g/dL 11/12/2023 1:30 PM [facility] RDW-CV 13.3 11.3 - 14.8 % 11/12/2023 1:30 PM [facility] Platelet Count 29(L) 150 - 420 x10E9/L 11/12/2023 1:30 PM [facility] MPV 10.8 7.8 - 11.4 fL 11/12/2023 1:30 PM [facility] Preliminary Absolute Neutrophil 11/12/2023 1:30 PM [facility] Comment:Preliminary ANC pend ing manual confirmation Blood BLOOD SPECIMEN / Unknown Venipuncture / Unknown 11/12/2023 11:36 AM SCREW REMOVER 11/12/2023 11:50 AM SCREW REMOVER Britni Winston PA-C LAB - HEMATOLOGY ORD ERABLES [address] [address], [place] [phone] * MAGNESIUM BLOOD (11/12/2023 11:36 AM SCREW REMOVER) Magnesium 2.0 1.6 - 2.6 mg/dL 11/12/2023 12:21 PM [facility] Blood BLOOD SPECIMEN / Unknown Venipuncture / Unknown 11/12/2023 11:36 AM SCREW REMOVER 11/12/2023 11:49 AM SCREW REMOVER Britni Winston PA-C LAB - CHEMISTRY ORDE RABQI [address] [address], [place] [phone] * (ABNORMAL) COMPREHENSIVE METABOLIC PANEL (11/12/2023 11:36 AM SCREW REMOVER) BUN 15 7 - 26 mg/dL 11/12/2023 12:21 PM [facility] Creatinine 0.63 0.56 - 0.96 mg/dL 11/12/2023 12:21 PM [facility] Sodium 139 136 - 145 mmol/L 11/12/2023 12:21 PM [facility] Potassium 3.9 3.5 - 4.5 mmol/L 11/12/2023 12:21 PM [facility] Chloride 109(H) 98 - 107 mmol/L 11/12/2023 12:21 PM [facility] CO2 21(L) 22 - 29 mmol/L 11/12/2023 12:21 PM [facility] Glucose 135(H) 70 - 115 mg/dL 11/12/2023 12:21 PM [facility] Calcium 9.6 8.4 - 10.2 mg/dL 11/12/2023 12:21 PM [facility] Protein Total 6.7 6.0 - 8.3 g/dL 11/12/2023 12:21 PM [facility] Albumin 3.3(L) 3.4 - 5.0 g/dL 11/12/2023 12:21 PM [facility] Bilirubin Total 0.9 0.2 - 1.2 mg/dL 11/12/2023 12:21 PM [facility] Alkaline Phosphatase 73 40 - 150 U/L 11/12/2023 12:21 PM [facility] ALT 31 5 - 55 U/L 11/12/2023 12:21 PM [facility] AST 16 5 - 34 U/L 11/12/2023 12:21 PM [facility] Anion Gap 9 6 - 16 11/12/2023 12:21 PM [facility] BUN/Creatinine Ratio 24(H) 7 - 23 11/12/2023 12:21 PM [facility] Osmolality Calculated 291 275 - 295 mOsm/kg 11/12/2023 12:21 PM [facility] Albumin/Globulin Ratio 1.0(L) 1.1 - 2.3 11/12/2023 12:21 PM [facility] eGFR by CKD-EPI >90 >=90 mL/min/1.7 3 m2 11/12/2023 12:21 PM [facility] Blood BLOOD SPECIMEN / Unknown Venipuncture / Unknown 11/12/2023 11:36 AM SCREW REMOVER 11/12/2023 11:49 AM SCREW REMOVER Britni Winston PA-C LAB - CHEMISTRY JON NAIDU [address] [address], [facility] [phone] * PHOSPHORUS BLOOD (11/12/2023 11:36 AM SCREW REMOVER) Phosphorus 3.2 2.9 - 5.1 mg/dL 11/12/2023 12:21 PM [facility] Blood BLOOD SPECIMEN / Unknown Venipuncture / Unknown 11/12/2023 11:36 AM SCREW REMOVER 11/12/2023 11:49 AM SCREW REMOVER Britni Winston PA-C LAB - CHEMISTRY JON NAIDU [facility] [address] [place] [address], [place] [phone] * TYPE + SCREEN PANEL (11/03/2023 9:56 AM SCREW REMOVER) Antibody Screen NEG 10:57 AM SCREW REMOVER [facility] ABO Rh O POS 11/03/2023 10:57 AM SCREW REMOVER [facility] Blood Bank BLOOD SPECIMEN / Unknown Venipuncture / Unknown 11/03/2023 9:56 AM SCREW REMOVER 11/03/2023 10:10 AM SCREW REMOVER Britni Winston PA-C LAB - BLOOD BANK ORD ERAJANES Performing Organization Address [facility] Co de Phone Number [facility] [address] [place] [address], [place] [phone] * URIC ACID BLOOD (11/03/2023 9:56 AM SCREW REMOVER) Uric Acid 3.9 2.6 - 6.0 mg/dL 11/03/2023 10:34 AM SCREW REMOVER [facility] Blood BLOOD SPECIMEN / Unknown Venipuncture / Unknown 11/03/2023 9:56 AM SCREW REMOVER 11/03/2023 10:09 AM SCREW REMOVER Britni Winston PA-C LAB - CHEMISTRY ORDE ELYSIA Performing Organization Address [facility]/ZIP Co de Phone Number [address] [address], [place] [phone] * (ABNORMAL) LDH BLOOD (11/03/2023 9:56 AM SCREW REMOVER) LDH Total 303(H) 125 - 243 Units/L 11/03/2023 10:34 AM SCREW REMOVER [facility] Blood BLOOD SPECIMEN / Unknown Venipuncture / Unknown 11/03/2023 9:56 AM SCREW REMOVER 11/03/2023 10:09 AM SCREW REMOVER Britni Winston PA-C LAB - CHEMISTRY ORDE EYLSIA [facility] [address] [place] [address], [facility] [phone] * (ABNORMAL) CBC WITH DIFFERENTIAL (11/03/2023 9:56 AM [facility]) WBC 4.3 4.0 - 10.7 x10E9/L 11/03/2023 10:36 AM [facility] RBC Count 2.29(L) 3.90 - 5.20 x10E12/L 11/03/2023 10:36 AM [facility] Hemoglobin 6.8(L) 11.9 - 15.8 g/dL 11/03/2023 10:36 AM [facility] Hematocrit 19.3(L) 34.8 - 46.1 % 11/03/2023 10:36 AM [facility] MCV 84.3 80.0 - 98.0 fL 11/03/2023 10:36 AM [facility] MCH 29.7 26.7 - 33.6 pg 11/03/2023 10:36 AM [facility] MCHC 35.2 31.7 - 36.3 g/dL 11/03/2023 10:36 AM [facility] RDW-CV 15.0(H) 11.3 - 14.8 % 11/03/2023 10:36 AM [facility] Platelet Count 102(L) 150 - 420 x10E9/L 11/03/2023 10:36 AM [facility] MPV 11.4 7.8 - 11.4 fL 11/03/2023 10:36 AM [facility] Preliminary Absolute Neutrophil 2.19 1.60 - 7.50 x10E9/L 11/03/2023 10:36 AM [facility] Neutrophil % 50.8 41.0 - 74.0 % 11/03/2023 10:36 AM [facility] Lymphocyte % 19.5 17.0 - 47.0 % 11/03/2023 10:36 AM [facility] Monocyte % 28.3(H) 3.0 - 11.0 % 11/03/2023 10:36 AM [facility] Eosinophil % 0.0 0.0 - 7.0 % 11/03/2023 10:36 AM [facility] Basophil % 0.0 0.0 - 1.6 % 11/03/2023 10:36 AM [facility] Immature Granulocytes % 1.4(H) 0.0 - 1.0 % 11/03/2023 10:36 AM [facility] Neutrophil Absolute 2.19 1.60 - 7.50 x10E9/L 11/03/2023 10:36 AM [facility] Lymphocyte Absolute 0.84(L) 1.00 - 4.40 x10E9/L 11/03/2023 10:36 AM [facility] Monocyte Absolute 1.22(H) 0.15 - 1.00 x10E9/L 11/03/2023 10:36 AM [facility] Eosinophil Absolute 0.00 0.00 - 0.60 x10E9/L 11/03/2023 10:36 AM [facility] Basophil Absolute 0.00 0.00 - 0.13 x10E9/L 11/03/2023 10:36 AM [facility] NRBC 1.9(H) <=0.0 /100 WBC 11/03/2023 10:36 AM [facility] Blood BLOOD SPECIMEN / Unknown Venipuncture / Unknown 11/03/2023 9:56 AM SCREW REMOVER 11/03/2023 10:09 AM [facility] Britni Winston PA-C LAB - HEMATOLOGY ORD ERABLES Performing Organization Address City/State/[facility] Co de Phone Number [address] [phone] [phone] * (ABNORMAL) MAGNESIUM BLOOD (11/03/2023 9:56 AM SCREW REMOVER) Magnesium 1.4(L) 1.6 - 2.6 mg/dL 11/03/2023 10:34 AM [facility] Blood BLOOD SPECIMEN / Unknown Venipuncture / Unknown 11/03/2023 9:56 AM SCREW REMOVER 11/03/2023 10:09 AM [facility] Britni Winston PA-C LAB - CHEMISTRY JON NAIDU [facility] [address] [place] [address], [facility] [phone] * (ABNORMAL) COMPREHENSIVE METABOLIC PANEL (11/03/2023 9:56 AM [facility]) BUN 6(L) 7 - 26 mg/dL 11/03/2023 10:34 AM [facility] Creatinine 0.55(L) 0.56 - 0.96 mg/dL 11/03/2023 10:34 AM [facility] Sodium 143 136 - 145 mmol/L 11/03/2023 10:34 AM [facility] Potassium 2.6(L) 3.5 - 4.5 mmol/L 11/03/2023 10:34 AM [facility] Chloride 109(H) 98 - 107 mmol/L 11/03/2023 10:34 AM [facility] CO2 25 22 - 29 mmol/L 11/03/2023 10:34 AM [facility] Glucose 105 70 - 115 mg/dL 11/03/2023 10:34 AM [facility] Calcium 8.4 8.4 - 10.2 mg/dL 11/03/2023 10:34 AM [facility] Protein Total 6.2 6.0 - 8.3 g/dL 11/03/2023 10:34 AM [facility] Albumin 3.2(L) 3.4 - 5.0 g/dL 11/03/2023 10:34 AM [facility] Bilirubin Total 0.5 0.2 - 1.2 mg/dL 11/03/2023 10:34 AM [facility] Alkaline Phosphatase 68 40 - 150 U/L 11/03/2023 10:34 AM [facility] ALT 43 5 - 55 U/L 11/03/2023 10:34 AM [facility] AST 23 5 - 34 U/L 11/03/2023 10:34 AM [facility] Anion Gap 9 6 - 16 11/03/2023 10:34 AM [facility] BUN/Creatinine Ratio 11 7 - 23 11/03/2023 10:34 AM [facility] Osmolality Calculated 294 275 - 295 mOsm/kg 11/03/2023 10:34 AM [facility] Albumin/Globulin Ratio 1.1 1.1 - 2.3 11/03/2023 10:34 AM [facility] eGFR by CKD-EPI >90 >=90 mL/min/1.7 3 m2 11/03/2023 10:34 AM [facility] Blood BLOOD SPECIMEN / Unknown Venipuncture / Unknown 11/03/2023 9:56 AM SCREW REMOVER 11/03/2023 10:09 AM SCREW REMOVER Britni Winston PA-C LAB - CHEMISTRY JON NAIDU [address] [address], [facility] [phone] * (ABNORMAL) PHOSPHORUS BLOOD (11/03/2023 9:56 AM SCREW REMOVER) Phosphorus 2.4(L) 2.9 - 5.1 mg/dL 11/03/2023 10:34 AM [facility] Blood BLOOD SPECIMEN / Unknown Venipuncture / Unknown 11/03/2023 9:56 AM SCREW REMOVER 11/03/2023 10:09 AM SCREW REMOVER Britni Winston PA-C LAB - CHEMISTRY JON NAIDU [address] [address], [place] [phone] * TYPE + SCREEN PANEL (10/29/2023 10:48 AM SCREW REMOVER) Antibody Screen NEG 11:37 AM [facility] ABO Rh O POS 10/29/2023 11:37 AM [facility] Blood Bank BLOOD SPECIMEN / Unknown Venipuncture / Unknown 10/29/2023 10:48 AM SCREW REMOVER 10/29/2023 10:54 AM SCREW REMOVER Britni Winston PA-C LAB - BLOOD BANK ORD ERAJANES [facility] [address] [place] [address], [place] [phone] * URIC ACID BLOOD (10/29/2023 10:48 AM SCREW REMOVER) [facility] Uric Acid 3.2 2.6 - 6.0 mg/dL 10/29/2023 11:35 AM SCREW REMOVER [facility] Blood BLOOD SPECIMEN / Unknown Venipuncture / Unknown 10/29/2023 10:48 AM SCREW REMOVER 10/29/2023 10:54 AM SCREW REMOVER Britni Winston PA-C LAB - CHEMISTRY JON NAIDU [facility] [address] [place] [address], [place] [phone] * (ABNORMAL) LDH BLOOD (10/29/2023 10:48 AM SCREW REMOVER) [facility] LDH Total 288(H) 125 - 243 Units/L 10/29/2023 11:35 AM SCREW REMOVER [facility] Blood BLOOD SPECIMEN / Unknown Venipuncture / Unknown 10/29/2023 10:48 AM SCREW REMOVER 10/29/2023 10:54 AM SCREW REMOVER Britni Winston PA-C LAB - CHEMISTRY JON NAIDU [facility] [address] [place] [address], [place] [phone] * (ABNORMAL) CBC WITH DIFFERENTIAL (10/29/2023 10:48 AM SCREW REMOVER) [facility] WBC 3.2(L) 4.0 - 10.7 x10E9/L 10/29/2023 12:48 PM [facility] RBC Count 2.51(L) 3.90 - 5.20 x10E12/L 10/29/2023 12:48 PM [facility] Hemoglobin 7.4(L) 11.9 - 15.8 g/dL 10/29/2023 12:48 PM [facility] Hematocrit 20.2(L) 34.8 - 46.1 % 10/29/2023 12:48 PM [facility] MCV 80.5 80.0 - 98.0 fL 10/29/2023 12:48 PM [facility] MCH 29.5 26.7 - 33.6 pg 10/29/2023 12:48 PM [facility] MCHC 36.6(H) 31.7 - 36.3 g/dL 10/29/2023 12:48 PM [facility] RDW-CV 12.6 11.3 - 14.8 % 10/29/2023 12:48 PM [facility] Platelet Count 77(L) 150 - 420 x10E9/L 10/29/2023 12:48 PM [facility] MPV 11.1 7.8 - 11.4 fL 10/29/2023 12:48 PM [facility] Preliminary Absolute Neutrophil 1.00(L) 1.60 - 7.50 x10E9/L 10/29/2023 12:48 PM [facility] NRBC 3.1(H) <=0.0 /100 WBC 10/29/2023 12:48 PM [facility] Blood BLOOD SPECIMEN / Unknown Venipuncture / Unknown 10/29/2023 10:48 AM SCREW REMOVER 10/29/2023 10:54 AM SCREW REMOVER Britni Winston PA-C LAB - HEMATOLOGY ORD ERABLES Performing Organization Address [facility]/State/[facility] Co de Phone Number [address] [phone] [phone] * (ABNORMAL) MAGNESIUM BLOOD (10/29/2023 10:48 AM SCREW REMOVER) Magnesium 1.5(L) 1.6 - 2.6 mg/dL 10/29/2023 11:35 AM [facility] Blood BLOOD SPECIMEN / Unknown Venipuncture / Unknown 10/29/2023 10:48 AM [employer] 10/29/2023 10:54 AM [employer]CRE[employer]OVER Britni Winston PA-C LAB - CHEMISTRY JON NAIDU [facility] [address] [place] [address], [facility] [phone] * (ABNORMAL) COMPREHENSIVE METABOLIC PANEL (10/29/2023 10:48 AM [facility]) BUN 7 7 - 26 mg/dL 10/29/2023 11:35 AM [facility] Creatinine 0.54(L) 0.56 - 0.96 mg/dL 10/29/2023 11:35 AM [facility] Sodium 144 136 - 145 mmol/L 10/29/2023 11:35 AM [facility] Potassium 3.0(L) 3.5 - 4.5 mmol/L 10/29/2023 11:35 AM [facility] Chloride 111(H) 98 - 107 mmol/L 10/29/2023 11:35 AM [facility] CO2 24 22 - 29 mmol/L 10/29/2023 11:35 AM [facility] Glucose 129(H) 70 - 115 mg/dL 10/29/2023 11:35 AM [facility] Calcium 9.1 8.4 - 10.2 mg/dL 10/29/2023 11:35 AM [facility] Protein Total 6.4 6.0 - 8.3 g/dL 10/29/2023 11:35 AM [facility] Albumin 3.1(L) 3.4 - 5.0 g/dL 10/29/2023 11:35 AM [facility] Bilirubin Total 0.3 0.2 - 1.2 mg/dL 10/29/2023 11:35 AM [facility] Alkaline Phosphatase 73 40 - 150 U/L 10/29/2023 11:35 AM [facility] ALT 31 5 - 55 U/L 10/29/2023 11:35 AM [facility] AST 25 5 - 34 U/L 10/29/2023 11:35 AM [facility] Anion Gap 9 6 - 16 10/29/2023 11:35 AM [facility] BUN/Creatinine Ratio 13 7 - 23 10/29/2023 11:35 AM [facility] Osmolality Calculated 298(H) 275 - 295 mOsm/kg 10/29/2023 11:35 AM [facility] Albumin/Globulin Ratio 0.9(L) 1.1 - 2.3 10/29/2023 11:35 AM [facility] eGFR by CKD-EPI >90 >=90 mL/min/1.7 3 m2 10/29/2023 11:35 AM [facility] Blood BLOOD SPECIMEN / Unknown Venipuncture / Unknown 10/29/2023 10:48 AM [employer] 10/29/2023 10:54 AM SCRE[employer]OVER Britni Winston PA-C LAB - CHEMISTRY JON NAIDU Performing Organization Address [facility]/ZIP Co de Phone Number [address] [address], [facility] [phone] * (ABNORMAL) PHOSPHORUS BLOOD (10/29/2023 10:48 AM SCREW [employer]OVER) Phosphorus 1.8(L) 2.9 - 5.1 mg/dL 10/29/2023 11:35 AM [facility] Blood BLOOD SPECIMEN / Unknown Venipuncture / Unknown 10/29/2023 10:48 AM S[employer] 10/29/2023 10:54 AM SCREW [employer]OVER Britni Winston PA-C LAB - CHEMISTRY JON NAIDU Performing Organization Address [facility]/ZIP Co de Phone Number [address] [address], [place] [phone] * URIC ACID BLOOD (10/27/2023 2:09 PM SCREW REMOVER) Uric Acid 3.4 2.6 - 6.0 mg/dL 10/27/2023 2:42 PM SCRE[employer] [facility] Blood BLOOD SPECIMEN / Unknown Venipuncture / Unknown 10/27/2023 2:09 PM SCRE[employer] 10/27/2023 2:12 PM [employer]CREW [employer]OVER Britni Winston PA-C LAB - CHEMISTRY JON NAIDU [facility] [address] [place] [address], [facility] [phone] * (ABNORMAL) LDH BLOOD (10/27/2023 2:09 PM SCREW REMOVER) [facility] LDH Total 262(H) 125 - 243 Units/L 10/27/2023 2:42 PM [facility] Blood BLOOD SPECIMEN / Unknown Venipuncture / Unknown 10/27/2023 2:09 PM [employer] 10/27/2023 2:12 PM S[employer]OVER Britni Winston PA-C LAB - CHEMISTRY ORDAzul NAIDU Performing Organization Address City/[facility]/ZIP Co de Phone Number [address] [address], [facility] [phone] * (ABNORMAL) CBC WITH DIFFERENTIAL (10/27/2023 2:09 PM SCREW REMOVER) [facility] WBC 2.8(L) 4.0 - 10.7 x10E9/L 10/27/2023 3:30 PM [facility] RBC Count 2.48(L) 3.90 - 5.20 x10E12/L 10/27/2023 3:30 PM [facility] Hemoglobin 7.3(L) 11.9 - 15.8 g/dL 10/27/2023 3:30 PM [facility] Hematocrit 19.7(L) 34.8 - 46.1 % 10/27/2023 3:30 PM [facility] MCV 79.4(L) 80.0 - 98.0 fL 10/27/2023 3:30 PM [facility] MCH 29.4 26.7 - 33.6 pg 10/27/2023 3:30 PM [facility] MCHC 37.1(H) 31.7 - 36.3 g/dL 10/27/2023 3:30 PM [facility] RDW-CV 12.3 11.3 - 14.8 % 10/27/2023 3:30 PM [facility] Platelet Count 51(L) 150 - 420 x10E9/L 10/27/2023 3:30 PM [facility] MPV 11.8(H) 7.8 - 11.4 fL 10/27/2023 3:30 PM [facility] Preliminary Absolute Neutrophil 0.45(L) 1.60 - 7.50 x10E9/L 10/27/2023 3:30 PM [facility] NRBC 2.5(H) <=0.0 /100 WBC 10/27/2023 3:30 PM [facility] Blood BLOOD SPECIMEN / Unknown Venipuncture / Unknown 10/27/2023 2:09 PM SCREW REMOVER 10/27/2023 2:12 PM SCREW REMOVER Britni Winston PA-C LAB - HEMATOLOGY ORD ERABLES Performing Organization Address City/[facility]/ZIP Co de Phone Number [address] [address], [facility] [phone] * (ABNORMAL) MAGNESIUM BLOOD (10/27/2023 2:09 PM SCREW REMOVER) Magnesium 1.5(L) 1.6 - 2.6 mg/dL 10/27/2023 2:42 PM [facility] Blood BLOOD SPECIMEN / Unknown Venipuncture / Unknown 10/27/2023 2:09 PM SCREW REMOVER 10/27/2023 2:12 PM SCREW REMOVER Britni Winston PA-C LAB - CHEMISTRY ORDAzul RABQI Performing Organization Address City/[facility]/ZIP Co de Phone Number [address] [address], [place] [phone] * (ABNORMAL) COMPREHENSIVE METABOLIC PANEL (10/27/2023 2:09 PM SCREW REMOVER) BUN 9 7 - 26 mg/dL 10/27/2023 2:42 PM [facility] Creatinine 0.51(L) 0.56 - 0.96 mg/dL 10/27/2023 2:42 PM [facility] Sodium 143 136 - 145 mmol/L 10/27/2023 2:42 PM [facility] Potassium 3.1(L) 3.5 - 4.5 mmol/L 10/27/2023 2:42 PM [facility] Chloride 111(H) 98 - 107 mmol/L 10/27/2023 2:42 PM [facility] CO2 25 22 - 29 mmol/L 10/27/2023 2:42 PM [facility] Glucose 96 70 - 115 mg/dL 10/27/2023 2:42 PM [facility] Calcium 9.3 8.4 - 10.2 mg/dL 10/27/2023 2:42 PM [facility] Protein Total 6.4 6.0 - 8.3 g/dL 10/27/2023 2:42 PM [facility] Albumin 3.1(L) 3.4 - 5.0 g/dL 10/27/2023 2:42 PM [facility] Bilirubin Total 0.3 0.2 - 1.2 mg/dL 10/27/2023 2:42 PM [facility] Alkaline Phosphatase 77 40 - 150 U/L 10/27/2023 2:42 PM [facility] ALT 32 5 - 55 U/L 10/27/2023 2:42 PM [facility] AST 22 5 - 34 U/L 10/27/2023 2:42 PM [facility] Anion Gap 7 6 - 16 10/27/2023 2:42 PM [facility] BUN/Creatinine Ratio 18 7 - 23 10/27/2023 2:42 PM [facility] Osmolality Calculated 295 275 - 295 mOsm/kg 10/27/2023 2:42 PM [facility] Albumin/Globulin Ratio 0.9(L) 1.1 - 2.3 10/27/2023 2:42 PM [facility] eGFR by CKD-EPI >90 >=90 mL/min/1.7 3 m2 10/27/2023 2:42 PM [facility] Blood BLOOD SPECIMEN / Unknown Venipuncture / Unknown 10/27/2023 2:09 PM SCREW REMOVER 10/27/2023 2:12 PM [facility] Britni Winston PA-C LAB - CHEMISTRY JON NAIDU [facility] Organization Address City/State/ZIP Co de Phone Number [address] [address], [place] [phone] * (ABNORMAL) PHOSPHORUS BLOOD (10/27/2023 2:09 PM SCREW REMOVER) Phosphorus 2.0(L) 2.9 - 5.1 mg/dL 10/27/2023 2:42 PM SCREW REMOVER [facility] Blood BLOOD SPECIMEN / Unknown Venipuncture / Unknown 10/27/2023 2:09 PM SCREW REMOVER 10/27/2023 2:12 PM [facility]CRE[facility] REMOVER Britni Winston PA-C LAB - CHEMISTRY ORDE ELYSIA [address] [address], [place] [phone] * TYPE + SCREEN PANEL (10/24/2023 12:12 PM SCREW REMOVER) Antibody Screen NEG 1:06 PM SCREW REMOVER [facility] ABO Rh O POS 10/24/2023 1:06 PM SCREW REMOVER [facility] Blood Bank BLOOD SPECIMEN / Unknown Venipuncture / Unknown 10/24/2023 12:12 PM SCREW REMOVER 10/24/2023 12:27 PM SCREW REMOVER Britni Winston PA-C LAB - BLOOD BANK ORD GELY [facility] [address] [place] [address], [place] [phone] * URIC ACID BLOOD (10/24/2023 12:12 PM SCREW REMOVER) Uric Acid 3.5 2.6 - 6.0 mg/dL 10/24/2023 12:50 PM SCREW REMOVER [facility] Blood BLOOD SPECIMEN / Unknown Venipuncture / Unknown 10/24/2023 12:12 PM SCREW REMOVER 10/24/2023 12:20 PM [facility]OVER Britni Winston PA-C LAB - CHEMISTRY ORDE ELYSIA [facility] [address] [place] [address], [place] [phone] * LDH BLOOD (10/24/2023 12:12 PM SCREW REMOVER) [facility] LDH Total 207 125 - 243 Units/L 10/24/2023 12:50 PM [facility] Blood BLOOD SPECIMEN / Unknown Venipuncture / Unknown 10/24/2023 12:12 PM SCREW REMOVER 10/24/2023 12:20 PM [facility]CRE[facility] REMOVER Britni Winston PA-C LAB - CHEMISTRY ORDAzul NAIDU [facility] [address] [place] [address], [facility] [phone] * (ABNORMAL) CBC WITH DIFFERENTIAL (10/24/2023 12:12 PM SCREW REMOVER) [facility] WBC 1.3(L) 4.0 - 10.7 x10E9/L 10/24/2023 [...] Unknown Venipuncture / Unknown 10/24/2023 12:12 PM SCREW REMOVER 10/24/2023 12:20 PM [facility]OVER Britni Winston PA-C LAB - HEMATOLOGY ORD ERABLES [facility] [address] [place] [address], [place] [phone] * MAGNESIUM BLOOD (10/24/2023 12:12 PM SCREW REMOVER) Magnesium 1.6 1.6 - 2.6 mg/dL 10/24/2023 12:50 PM [facility] Blood BLOOD SPECIMEN / Unknown Venipuncture / Unknown 10/24/2023 12:12 PM SCREW REMOVER 10/24/2023 12:20 PM [facility]OVER Britni Winston PA-C LAB - CHEMISTRY ORDE RABLES [facility] [address] [place] [address], [place] [phone] * (ABNORMAL) COMPREHENSIVE METABOLIC PANEL (10/24/2023 12:12 PM SCREW REMOVER) BUN 10 7 - 26 mg/dL 10/24/2023 [...] 0.9(L) 1.1 - 2.3 10/24/2023 12:50 PM [facility] eGFR by CKD-EPI >90 >=90 mL/min/1.7 3 m2 10/24/2023 12:50 PM [facility] Blood BLOOD SPECIMEN / Unknown Venipuncture / Unknown 10/24/2023 12:12 PM SCREW REMOVER 10/24/2023 12:20 PM [facility] Britni Winston PA-C LAB - CHEMISTRY JON NAIDU [facility] [address] [place] [address], [facility] [phone] * (ABNORMAL) PHOSPHORUS BLOOD (10/24/2023 12:12 PM SCREW REMOVER) Phosphorus 1.9(L) 2.9 - 5.1 mg/dL 10/24/2023 12:50 PM SCREW REMOVER [facility] Blood BLOOD SPECIMEN / Unknown Venipuncture / Unknown 10/24/2023 12:12 PM SCREW REMOVER 10/24/2023 12:20 PM [facility]CRE[facility] REMOVER Britni Winston PA-C LAB - CHEMISTRY ORDE RABQI [address] [address], [facility] [phone] * TYPE + SCREEN PANEL (10/22/2023 3:16 PM SCREW REMOVER) Antibody Screen NEG 4:19 PM SCREW REMOVER [facility] ABO Rh O POS 10/22/2023 4:19 PM SCREW REMOVER [facility] Blood Bank BLOOD SPECIMEN / Unknown Venipuncture / Unknown 10/22/2023 3:16 PM SCREW REMOVER 10/22/2023 3:24 PM SCREW REMOVER Britni Winston PA-C LAB - BLOOD BANK ORD ERABLES Performing Organization Address City/[facility]/ZIP Co de Phone Number [facility] [address] [place] [address], [place] [phone] * URIC ACID BLOOD (10/22/2023 1:40 PM SCREW REMOVER) Uric Acid 3.4 2.6 - 6.0 mg/dL 10/22/2023 2:22 PM SCREW REMOVER [facility] Blood BLOOD SPECIMEN / Unknown Venipuncture / Unknown 10/22/2023 1:40 PM SCREW REMOVER 10/22/2023 1:56 PM SCREW REMOVER Britni Wisnton PA-C LAB - CHEMISTRY ORDE ELYSIA [address] [address], [facility] [phone] * LDH BLOOD (10/22/2023 1:40 PM SCREW REMOVER) [facility] LDH Total 182 125 - 243 Units/L 10/22/2023 2:22 PM [facility] Blood BLOOD SPECIMEN / Unknown Venipuncture / Unknown 10/22/2023 1:40 PM SCREW REMOVER 10/22/2023 1:56 PM SCREW REMOVER Britni Winston PA-C LAB - CHEMISTRY ORDE ELYSIA [facility] [address] [place] [address], [facility] [phone] * (ABNORMAL) CBC WITH DIFFERENTIAL (10/22/2023 1:40 PM SCREW REMOVER) [facility] WBC 0.7(LL) 4.0 - 10.7 x10E9/L 10/22/2023 2:47 PM [facility] RBC Count 2.67(L) 3.90 - 5.20 x10E12/L 10/22/2023 2:47 PM [facility] Hemoglobin 7.7(L) 11.9 - 15.8 g/dL 10/22/2023 2:47 PM [facility] Hematocrit 21.1(L) 34.8 - 46.1 % 10/22/2023 2:47 PM [facility] MCV 79.0(L) 80.0 - 98.0 fL 10/22/2023 2:47 PM [facility] MCH 28.8 26.7 - 33.6 pg 10/22/2023 2:47 PM [facility] MCHC 36.5(H) 31.7 - 36.3 g/dL 10/22/2023 2:47 PM [facility] RDW-CV 12.5 11.3 - 14.8 % 10/22/2023 2:47 PM [facility] Platelet Count 33(L) 150 - 420 x10E9/L 10/22/2023 2:47 PM [facility] MPV 9.9 7.8 - 11.4 fL 10/22/2023 2:47 PM [facility] Preliminary Absolute Neutrophil 0.00(L) 1.60 - 7.50 x10E9/L 10/22/2023 2:47 PM [facility] Blood BLOOD SPECIMEN / Unknown Venipuncture / Unknown 10/22/2023 1:40 PM SCREW REMOVER 10/22/2023 1:55 PM SCREW REMOVER Britni Winston PA-C LAB - HEMATOLOGY ORD ERABLES [address] [address], [facility] [phone] * MAGNESIUM BLOOD (10/22/2023 1:40 PM SCREW REMOVER) Pathologist [facility] Magnesium 1.6 1.6 - 2.6 mg/dL 10/22/2023 2:22 PM [facility] Blood BLOOD SPECIMEN / Unknown Venipuncture / Unknown 10/22/2023 1:40 PM SCREW REMOVER 10/22/2023 1:56 PM SCREW REMOVER Britni Winston PA-C LAB - CHEMISTRY ORDE RABQI [address] [address], [facility] [phone] * (ABNORMAL) COMPREHENSIVE METABOLIC PANEL (10/22/2023 1:40 PM SCREW REMOVER) BUN 11 7 - 26 mg/dL 10/22/2023 2:22 PM [facility] Creatinine 0.64 0.56 - 0.96 mg/dL 10/22/2023 2:22 PM [facility] Sodium 140 136 - 145 mmol/L 10/22/2023 2:22 PM [facility] Potassium 3.6 3.5 - 4.5 mmol/L 10/22/2023 2:22 PM [facility] Chloride 117(H) 98 - 107 mmol/L 10/22/2023 2:22 PM [facility] CO2 16(L) 22 - 29 mmol/L 10/22/2023 2:22 PM [facility] Glucose 92 70 - 115 mg/dL 10/22/2023 2:22 PM [facility] Calcium 9.5 8.4 - 10.2 mg/dL 10/22/2023 2:22 PM [facility] Protein Total 6.6 6.0 - 8.3 g/dL 10/22/2023 2:22 PM [facility] Albumin 3.3(L) 3.4 - 5.0 g/dL 10/22/2023 2:22 PM [facility] Bilirubin Total 0.4 0.2 - 1.2 mg/dL 10/22/2023 2:22 PM [facility] Alkaline Phosphatase 85 40 - 150 U/L 10/22/2023 2:22 PM [facility] ALT 33 5 - 55 U/L 10/22/2023 2:22 PM [facility] AST 15 5 - 34 U/L 10/22/2023 2:22 PM [facility] Anion Gap 7 6 - 16 10/22/2023 2:22 PM [facility] BUN/Creatinine Ratio 17 7 - 23 10/22/2023 2:22 PM [facility] Osmolality Calculated 289 275 - 295 mOsm/kg 10/22/2023 2:22 PM [facility] Albumin/Globulin Ratio 1.0(L) 1.1 - 2.3 10/22/2023 2:22 PM [facility] eGFR by CKD-EPI >90 >=90 mL/min/1.7 3 m2 10/22/2023 2:22 PM [facility] Blood BLOOD SPECIMEN / Unknown Venipuncture / Unknown 10/22/2023 1:40 PM SCREW REMOVER 10/22/2023 1:56 PM [facility] Britni Winston PA-C LAB - CHEMISTRY JON NAIDU [facility] Organization Address City/State/ZIP Co de Phone Number [facility] [address] [place] [address], [facility] [phone] * (ABNORMAL) PHOSPHORUS BLOOD (10/22/2023 1:40 PM SCREW REMOVER) Phosphorus 2.3(L) 2.9 - 5.1 mg/dL 10/22/2023 2:22 PM SCREW REMOVER [facility] Blood BLOOD SPECIMEN / Unknown Venipuncture / Unknown 10/22/2023 1:40 PM SCREW REMOVER 10/22/2023 1:56 PM [facility]CREW REMOVER Britni Winston PA-C LAB - CHEMISTRY JON NAIDU Performing Organization Address City/[facility]/ZIP Co de Phone Number [address] [address], [place] [phone] * TYPE + SCREEN PANEL (10/20/2023 1:04 PM SCREW REMOVER) Antibody Screen NEG 1:51 PM SCREW REMOVER [facility] ABO Rh O POS 10/20/2023 1:51 PM SCREW REMOVER [facility] Blood Bank BLOOD SPECIMEN / Unknown Venipuncture / Unknown 10/20/2023 1:04 PM SCREW REMOVER 10/20/2023 1:14 PM SCREW REMOVER Britni Winston PA-C LAB - BLOOD BANK ORD ERAJANES Performing Organization Address [facility]/ZIP Co de Phone Number [facility] [address] [place] [address], [place] [phone] * URIC ACID BLOOD (10/20/2023 1:04 PM SCREW REMOVER) Uric Acid 4.0 2.6 - 6.0 mg/dL 10/20/2023 1:38 PM SCREW REMOVER [facility] Blood BLOOD SPECIMEN / Unknown Venipuncture / Unknown 10/20/2023 1:04 PM SCREW REMOVER 10/20/2023 1:12 PM SCRE[facility] REMOVER Britni Winston PA-C LAB - CHEMISTRY JON NAIDU Performing Organization Address City/[facility]/ZIP Co de Phone Number [address] [address], [place] [phone] * LDH BLOOD (10/20/2023 1:04 PM SCREW REMOVER) LDH Total 170 125 - 243 Units/L 10/20/2023 1:38 PM [facility] Blood BLOOD SPECIMEN / Unknown Venipuncture / Unknown 10/20/2023 1:04 PM SCREW REMOVER 10/20/2023 1:12 PM [facility]OVER Britni Winston PA-C LAB - CHEMISTRY JON NAIDU [facility] Organization Address City/State/ZIP Co de Phone Number [facility] [address] [place] [address], [facility] [phone] * (ABNORMAL) CBC WITH DIFFERENTIAL (10/20/2023 1:04 PM SCREW REMOVER) WBC 0.4(LL) 4.0 - 10.7 x10E9/L 10/20/2023 2:14 PM [facility] RBC Count 2.34(L) 3.90 - 5.20 x10E12/L 10/20/2023 2:14 PM [facility] Hemoglobin 6.8(L) 11.9 - 15.8 g/dL 10/20/2023 2:14 PM [facility] Hematocrit 18.3(L) 34.8 - 46.1 % 10/20/2023 2:14 PM [facility] MCV 78.2(L) 80.0 - 98.0 fL 10/20/2023 2:14 PM [facility] MCH 29.1 26.7 - 33.6 pg 10/20/2023 2:14 PM [facility] MCHC 37.2(H) 31.7 - 36.3 g/dL 10/20/2023 2:14 PM [facility] RDW-CV 12.5 11.3 - 14.8 % 10/20/2023 2:14 PM [facility] Platelet Count 18(LL) 150 - 420 x10E9/L 10/20/2023 2:14 PM [facility] MPV 10.1 7.8 - 11.4 fL 10/20/2023 2:14 PM [facility] Preliminary Absolute Neutrophil 0.01(L) 1.60 - 7.50 x10E9/L 10/20/2023 2:14 PM [facility] Neutrophil % 2.2(L) 41.0 - 74.0 % 10/20/2023 2:14 PM [facility] Lymphocyte % 95.5(H) 17.0 - 47.0 % 10/20/2023 2:14 PM [facility] Monocyte % 2.3(L) 3.0 - 11.0 % 10/20/2023 2:14 PM [facility] Eosinophil % 0.0 0.0 - 7.0 % 10/20/2023 2:14 PM [facility] Basophil % 0.0 0.0 - 1.6 % 10/20/2023 2:14 PM [facility] Immature Granulocytes % 0.0 0.0 - 1.0 % 10/20/2023 2:14 PM [facility] Neutrophil Absolute 0.01(L) 1.60 - 7.50 x10E9/L 10/20/2023 2:14 PM [facility] Lymphocyte Absolute 0.42(L) 1.00 - 4.40 x10E9/L 10/20/2023 2:14 PM [facility] Monocyte Absolute 0.01(L) 0.15 - 1.00 x10E9/L 10/20/2023 2:14 PM [facility] Eosinophil Absolute 0.00 0.00 - 0.60 x10E9/L 10/20/2023 2:14 PM [facility] Basophil Absolute 0.00 0.00 - 0.13 x10E9/L 10/20/2023 2:14 PM [facility] Blood BLOOD SPECIMEN / Unknown Venipuncture / Unknown 10/20/2023 1:04 PM SCREW REMOVER 10/20/2023 1:12 PM [facility] Britni Winston PA-C LAB - HEMATOLOGY ORD ERABLES [facility] [address] [place] [address], [facility] [phone] * MAGNESIUM BLOOD (10/20/2023 1:04 PM SCREW REMOVER) Magnesium 1.6 1.6 - 2.6 mg/dL 10/20/2023 1:38 PM [facility] Blood BLOOD SPECIMEN / Unknown Venipuncture / Unknown 10/20/2023 1:04 PM SCREW REMOVER 10/20/2023 1:12 PM [facility]CRE[facility] REMOVER Britni Winston PA-C LAB - CHEMISTRY JON NAIDU [facility] [address] [place] [address], [facility] [phone] * (ABNORMAL) COMPREHENSIVE METABOLIC PANEL (10/20/2023 1:04 PM SCREW REMOVER) BUN 11 7 - 26 mg/dL 10/20/2023 1:38 PM [facility] Creatinine 0.68 0.56 - 0.96 mg/dL 10/20/2023 1:38 PM [facility] Sodium 140 136 - 145 mmol/L 10/20/2023 1:38 PM [facility] Potassium 3.2(L) 3.5 - 4.5 mmol/L 10/20/2023 1:38 PM [facility] Chloride 115(H) 98 - 107 mmol/L 10/20/2023 1:38 PM [facility] CO2 15(L) 22 - 29 mmol/L 10/20/2023 1:38 PM [facility] Glucose 139(H) 70 - 115 mg/dL 10/20/2023 1:38 PM [facility] Calcium 9.2 8.4 - 10.2 mg/dL 10/20/2023 1:38 PM [facility] Protein Total 6.5 6.0 - 8.3 g/dL 10/20/2023 1:38 PM [facility] Albumin 3.3(L) 3.4 - 5.0 g/dL 10/20/2023 1:38 PM [facility] Bilirubin Total 0.5 0.2 - 1.2 mg/dL 10/20/2023 1:38 PM [facility] Alkaline Phosphatase 84 40 - 150 U/L 10/20/2023 1:38 PM [facility] ALT 37 5 - 55 U/L 10/20/2023 1:38 PM [facility] AST 16 5 - 34 U/L 10/20/2023 1:38 PM [facility] Anion Gap 10 6 - 16 10/20/2023 1:38 PM [facility] BUN/Creatinine Ratio 16 7 - 23 10/20/2023 1:38 PM [facility] Osmolality Calculated 292 275 - 295 mOsm/kg 10/20/2023 1:38 PM [facility] Albumin/Globulin Ratio 1.0(L) 1.1 - 2.3 10/20/2023 1:38 PM [facility] eGFR by CKD-EPI >90 >=90 mL/min/1.7 3 m2 10/20/2023 1:38 PM [facility] Blood BLOOD SPECIMEN / Unknown Venipuncture / Unknown 10/20/2023 1:04 PM SCREW REMOVER 10/20/2023 1:12 PM [facility]CRE[facility] REMOVER Britni Winston PA-C LAB - CHEMISTRY JON NAIDU Performing Organization Address City/[facility]/ZIP Co de Phone Number [address] [address], [place] [phone] * (ABNORMAL) PHOSPHORUS BLOOD (10/20/2023 1:04 PM SCREW REMOVER) Pathologist [facility] Phosphorus 2.3(L) 2.9 - 5.1 mg/dL 10/20/2023 1:38 PM [facility] Blood BLOOD SPECIMEN / Unknown Venipuncture / Unknown 10/20/2023 1:04 PM SCREW REMOVER 10/20/2023 1:12 PM [facility]CREW REMOVER Britni Winston PA-C LAB - CHEMISTRY ORDAzul NAIDU [address] [address], [place] [phone] * (ABNORMAL) PLATELET COUNT AUTO (10/17/2023 3:48 PM SCREW REMOVER) Platelet Count 58(L) 150 - 420 x10E9/L 10/17/2023 4:24 PM SCREW REMOVER [facility] Blood BLOOD SPECIMEN / Unknown Venipuncture / Unknown 10/17/2023 3:48 PM SCREW REMOVER 10/17/2023 3:55 PM SCREW REMOVER Britni Winston PA-C LAB - HEMATOLOGY ORD ERABLES [facility] [address] [place] [address], [place] [phone] * PREPARE PLATELET PHERESIS UNIT(S), 1 Units (10/17/2023 3:00 PM SCREW REMOVER) Unit Description LRPLTphere B7 IR [facility] Unit ABO O [facility] Unit Rh POS [facility] Product Number P32 [facility] Unit Donor # [id number] [facility] Unit Status transfused [facility] Product Code [id number] [facility] Blood Type Barcode 5100 [facility] Expiration Date [id number] [facility] Blood Bank BLOOD SPECIMEN / Unknown 10/17/2023 1:57 PM SCREW REMOVER Britni Winston PA-C LAB - BLOOD BANK ORD ERABLES Performing Organization Address City/[facility]/ZIP Co de Phone Number [facility] [address] [place] [address], [place] [phone] * TYPE + SCREEN PANEL (10/17/2023 1:52 PM SCREW REMOVER) Antibody Screen NEG 2:39 PM SCREW REMOVER [facility] ABO Rh O POS 10/17/2023 2:39 PM SCREW REMOVER [facility] Blood Bank BLOOD SPECIMEN / Unknown Venipuncture / Unknown 10/17/2023 1:52 PM SCREW REMOVER 10/17/2023 1:57 PM SCREW REMOVER Britni Winston PA-C LAB - BLOOD BANK ORD ERABLES [facility] [address] [place] [address], [place] [phone] * URIC ACID BLOOD (10/17/2023 1:52 PM SCREW REMOVER) [facility] Uric Acid 3.8 2.6 - 6.0 mg/dL 10/17/2023 2:30 PM [facility] Blood BLOOD SPECIMEN / Unknown Venipuncture / Unknown 10/17/2023 1:52 PM SCREW REMOVER 10/17/2023 2:00 PM SCREW REMOVER Britni Winston PA-C LAB - CHEMISTRY JON NAIDU Performing Organization Address City/[facility]/ZIP Co de Phone Number [address] [address], [facility] [phone] * LDH BLOOD (10/17/2023 1:52 PM SCREW REMOVER) [facility] LDH Total 192 125 - 243 Units/L 10/17/2023 2:30 PM [facility] Blood BLOOD SPECIMEN / Unknown Venipuncture / Unknown 10/17/2023 1:52 PM SCREW REMOVER 10/17/2023 2:00 PM SCREW REMOVER Britni Winston PA-C LAB - CHEMISTRY JON NAIDU [address] [address], [facility] [phone] * (ABNORMAL) CBC WITH DIFFERENTIAL (10/17/2023 1:52 PM [facility]CRE[facility]) [facility] WBC 0.4(LL) 4.0 - 10.7 x10E9/L 10/17/2023 2:42 PM [facility] RBC Count 2.53(L) 3.90 - 5.20 x10E12/L 10/17/2023 2:42 PM [facility] Hemoglobin 7.5(L) 11.9 - 15.8 g/dL 10/17/2023 2:42 PM [facility] Hematocrit 20.0(L) 34.8 - 46.1 % 10/17/2023 2:42 PM [facility] MCV 79.1(L) 80.0 - 98.0 fL 10/17/2023 2:42 PM [facility] MCH 29.6 26.7 - 33.6 pg 10/17/2023 2:42 PM [facility] MCHC 37.5(H) 31.7 - 36.3 g/dL 10/17/2023 2:42 PM [facility] RDW-CV 12.5 11.3 - 14.8 % 10/17/2023 2:42 PM [facility] Platelet Count 12(LL) 150 - 420 x10E9/L 10/17/2023 2:42 PM [facility] MPV 10.4 7.8 - 11.4 fL 10/17/2023 2:42 PM [facility] Preliminary Absolute Neutrophil 0.00(L) 1.60 - 7.50 x10E9/L 10/17/2023 2:42 PM [facility] Blood BLOOD SPECIMEN / Unknown Venipuncture / Unknown 10/17/2023 1:52 PM [facility] 10/17/2023 2:00 PM [facility] Britni Winston PA-C LAB - HEMATOLOGY ORD ERABLES [address] [address], [facility] [phone] * MAGNESIUM BLOOD (10/17/2023 1:52 PM [facility]) [facility] Magnesium 1.6 1.6 - 2.6 mg/dL 10/17/2023 2:30 PM [facility] Blood BLOOD SPECIMEN / Unknown Venipuncture / Unknown 10/17/2023 1:52 PM [facility] 10/17/2023 2:00 PM [facility] [employer] Britni Winston PA-C LAB - CHEMISTRY ORDE RABLES [address] [address], [place] [phone] * (ABNORMAL) COMPREHENSIVE METABOLIC PANEL (10/17/2023 1:52 PM [facility]) BUN 12 7 - 26 mg/dL 10/17/2023 2:30 PM [facility] Creatinine 0.72 0.56 - 0.96 mg/dL 10/17/2023 2:30 PM [facility] Sodium 141 136 - 145 mmol/L 10/17/2023 2:30 PM [facility] Potassium 3.1(L) 3.5 - 4.5 mmol/L 10/17/2023 2:30 PM [facility] Chloride 116(H) 98 - 107 mmol/L 10/17/2023 2:30 PM [facility] CO2 15(L) 22 - 29 mmol/L 10/17/2023 2:30 PM [facility] Glucose 131(H) 70 - 115 mg/dL 10/17/2023 2:30 PM [facility] Calcium 9.5 8.4 - 10.2 mg/dL 10/17/2023 2:30 PM [facility] Protein Total 6.6 6.0 - 8.3 g/dL 10/17/2023 2:30 PM [facility] Albumin 3.4 3.4 - 5.0 g/dL 10/17/2023 2:30 PM [facility] Bilirubin Total 0.4 0.2 - 1.2 mg/dL 10/17/2023 2:30 PM [facility] Alkaline Phosphatase 86 40 - 150 U/L 10/17/2023 2:30 PM [facility] ALT 53 5 - 55 U/L 10/17/2023 2:30 PM [facility] AST 24 5 - 34 U/L 10/17/2023 2:30 PM [facility] Anion Gap 10 6 - 16 10/17/2023 2:30 PM [facility] BUN/Creatinine Ratio 17 7 - 23 10/17/2023 2:30 PM [facility] Osmolality Calculated 294 275 - 295 mOsm/kg 10/17/2023 2:30 PM [facility] Albumin/Globulin Ratio 1.1 1.1 - 2.3 10/17/2023 2:30 PM [facility] eGFR by CKD-EPI >90 >=90 mL/min/1.7 3 m2 10/17/2023 2:30 PM [facility] Blood BLOOD SPECIMEN / Unknown Venipuncture / Unknown 10/17/2023 1:52 PM [facility] 10/17/2023 2:00 PM [facility] Britni Winston PA-C LAB - CHEMISTRY JON NAIDU Performing Organization Address [facility]/ZIP Co de Phone Number [address] [address], [facility] [phone] * (ABNORMAL) PHOSPHORUS BLOOD (10/17/2023 1:52 PM [facility]) Phosphorus 2.7(L) 2.9 - 5.1 mg/dL 10/17/2023 2:30 PM [facility] Blood BLOOD SPECIMEN / Unknown Venipuncture / Unknown 10/17/2023 1:52 PM [facility] 10/17/2023 2:00 PM [facility] Britni Winston PA-C LAB - CHEMISTRY JON ANIDU Performing Organization Address [facility]/ZIP Co de Phone Number [address] [address], [facility] [phone] documented in this encounter Visit Diagnoses Diagnosis 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 $ Given 10/17/2023 3:45 PM SCREW REMOVER 20 mEq sodium - potassium phosphates (K Phos Neutral) tablet 2 tablet 2 tablet, Oral, ONCE, 1 dose, On Fri10/17/23 at 1615, Contains Phos 8 mmol, K+ 1.1 mEq, Na 13 mEq per tablet $ Given 10/17/2023 3:54 PM SCREW REMOVER 2 tablets documented in this encounter Care Teams Plant Engineering Manager Relationship Specialty Start Date End Date Nilam Mayers MD [address] [place] [phone] PCP - General Family Medicine 09/04/23 04/18/24 documented as of this encounter
--- OUTSIDE RECORDS SUMMARY | 2024-08-31 21:31 | XMS_ITS | Encounter Summary ---
Author Organization [facility] Health Address [facility] [place] [address] Care Team Providers Care Chassis Engineer Name Role Phone Nilam Mayers MD Primary Care Provider +1- [phone] Encounter Details Date Type Department Care Team (Latest Contact Info) Description 10/13/2023 Travel Social History Tobacco Use Types Packs/Day [...] care, and heating? Not very hard 09/06/2023 [facility] [place] of Occupat ional Health - Occupational Stress [...] slept in a mcc (including now)? No 09/06/2023 Sex and Gender [...] st Contact Info) Description 10/27/2024 10:30 AM CERTIFIED NURSING ATTENDANT Appointment [facility] [address] [place] [address] Hussain Carias MD [address] [place] [phone] Britni Winston, PABaronC [address] [place] [address] 11/17/2024 9:00 AM CERTIFIED NURSING ATTENDANT Office Visit [facility] - Ophthalmology [address] [place] [phone] Song Hobson MD [address] [place] [address] [place] [address] documented as of this encounter Visit Diagnoses Not on filedocumented in this encounter Care Teams Chassis Engineer Relationship Specialty Start Date End Date Nilam Mayers MD [address] [place] [phone] PCP - General Family Medicine 09/04/23 04/18/24 documented as of this encounter
--- OUTSIDE RECORDS SUMMARY | 2024-08-31 21:33 | XMS_ITS | Encounter Summary ---
Author Organization [facility] Address [address] [place] [address] Care Team Providers Care Fundraising Sale Representative Name Role Phone Nilam Mayers MD Primary Care Provider +1- [phone] Reason for Visit * Auth/Cert (Routine) Specialty Diagnoses / Procedures Referred By Contac t Referred To Contact Diagnoses Acute leukemia. Referral ID Status Reason Start Date Expiration Date Visits Re quested Visits Authorized [id number] 1 1 Encounter Details Date Type Department Care Team (Late st Contact Info) Description 09/30/2023 9:40 AM PIANO TEACHER Clinical Support [facility] - Ophthalmology [address] [place] [phone] Song Hobson MD [address] [place] [address] [place] [phone] Umair Tan MD [address] [place] [address] DIV OF [employer] [place] [address] Optic disc edema (Primary Dx) Social History Tobacco Use Types [...] care, and heating? Not very hard 09/06/2023 [facility] of Occupat ional Health - [...] or have serious hearing difficult y? No 09/03/2023 Is person blind or have serious difficulty seein g? No 09/03/2023 Does person have serious dif ficulty walking/climbing stairs? No 09/03/2023 Does person have difficulty dressing/bathing? No 09/03/2023 Does person have difficulty doing errands alone? No 09/03/2023 Cognitive Status Response Date of Assessm ent Does person have difficulty concentrating/remembering/making decisions? No 09/03/2023 documented as of this encounter Plan of Treatment Upcoming Encounters Date Type Department Care Team (Late st Contact Info) Description 10/27/2024 10:30 AM PIANO TEACHER Appointment [facility] [address] [place] [address] Hussain Carias MD [address] [place] [phone] Britni Winston, PA-C [address] [place], [place] [phone] 11/17/2024 9:00 AM PIANO TEACHER Office Visit [facility] - Ophthalmology [address] [place] [phone] Song Hobson MD [address] [place] [address] DE[place] [phone] Pending Results Name Type Priority Associated Diagnoses Date /Time OPTIC NERVE ANALYSIS OCT Ophthalmology Routine Optic disc edema 09/30/2023 9:34 AM PIANO TEACHER documented as of this encounter Visit Diagnoses Diagnosis Optic disc edema- Primary Papilloedema, unspecified documented in this encounter Care Teams Fundraising Sale Representative Relationship Specialty Start Date End Date Nilam Mayers MD [address] [place] [phone] PCP - General Family Medicine 09/04/23 04/18/24 documented as of this encounter
--- OUTSIDE RECORDS SUMMARY | 2024-08-31 21:33 | XMS_ITS | Encounter Summary ---
Author Organization [facility] Address [facility]3 [facility] [place] [address] Care Team Providers Care Traffic Control Supervisor Name Role Phone Nilam Mayers MD Primary Care Provider +1- [phone] Osmar Ragland MD Primary Care Provider +1 [phone] Encounter Details Date Type Department Care Team (Late st Contact Info) Description 09/30/2023 Ophth Exam [facility] - Ophthalmology [address] [place] [address] Dano Jean MD 1201 [facility] [place] [address] Social History Tobacco Use Types Packs/Day Years [...] care, and heating? Not very hard 09/06/2023 [facility] [place] of Occupat ional Health - Occupational Stress [...] st Contact Info) Description 10/27/2024 10:30 AM SURGERY SPECIALIST Appointment [facility] [address] [place] [phone] Hussain Carias MD [address] [place] [address] Britni Winston, PA-C [address] [place] [address] 11/17/2024 9:00 AM SURGERY SPECIALIST Office Visit [facility] - Ophthalmology [address] [place] [address], [place] [address] Song Hobson MD [address] [place] [address] DEPT [place] [address] documented as of this encounter Visit Diagnoses Not on filedocumented in this encounter Additional Health Concerns Infection Onset Date Last Indicated Resolved Time COVID-19 Under Investigation 11/10/2023 11/10/2023 11/10/2023 6:57 PM SURGERY SPECIALIST COVID-19 Under Investigation 12/19/2023 12/19/2023 12/19/2023 3:31 PM CDT documented as of this encounter Care Teams Traffic Control Supervisor Relationship Specialty Start Date End Date Nilam Mayers MD [address] [place] [phone] PCP - General Family Medicine 09/04/23 04/18/24 Osmar Ragland MD [address] [place] [phone] PCP - General Family Medicine 04/19/24 documented as of this encounter
--- OUTSIDE RECORDS SUMMARY | 2024-08-31 21:33 | XMS_ITS | Encounter Summary ---
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 [place] [address] 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) Social History Tobacco Use Types [...] care, and heating? Not very hard 09/06/2023 [facility] [place] of Occupat ional Health - Occupational Stress [...] st Contact Info) Description 10/27/2024 10:30 AM ESTATE PLANNING PARALEGAL Appointment [facility] [address] [place] [address] Hussain Carias MD [address] [place] [phone] Britni Winston PABaronC [address] [place] [address] 11/17/2024 9:00 AM ESTATE PLANNING PARALEGAL Office Visit [facility] - Ophthalmology [address] [place] [phone] Song Hobson MD [address] [place] [address] DEPT [place] [phone] Scheduled Referrals Name Type Priority Associated Diagnoses Orde r Schedule Ref to Hematology/Oncol [facility] Outpatient Referral Routine 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) 1 Occurrences starting 09/29/2023 until 09/29/2024 documented as of this encounter Visit Diagnoses Diagnosis 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
--- OUTSIDE RECORDS SUMMARY | 2024-08-31 21:33 | XMS_ITS | Encounter Summary ---
Author Organization [facility] Health Address [address] [place], [place] [address] [address] Care Team Providers Care Sales Service Coordinator Name Role Phone Unavailable Primary Care Provider Unavailabl e Reason for Visit * Reason Onset Date Comments General 09/03/2023 Evaluation for t rejisfer to [facility] Encounter Details Date Type Department Care Team (Late st Contact Info) Description 09/03/2023 Telephone [facility] INTERNAL MED [address] [place] [phone] Umair Tan MD [address] [facility] 2L [place] [facility] [place] [address] General (Evaluation for transfer to [facility]) Social History Tobacco Use Types Packs/Day Years Used Date Smoking Tobacco: Former Cigarettes 1 6 2 005 - 2010 Smokeless Tobacco: Never Alcohol Use Standard Drinks/Week Comments Yes 0 (1 standard drink = 0.6 oz pur e alcohol) AUDIT-C Answer Date Recorded Q1: How often do you have a drink containing alc ohol? Monthly or less 09/03/2023 Q2: How many drinks containi ng alcohol do you have on a typical day when you are drinking? 3 or 4 09/03/2023 Q3: How often do you have si x or more drinks on one occasion? Less than monthly 09/03/2023 Sex and Gender Information Value Date Recorded Sex Assigned at Not on file Gender Identity Female 02/13/2024 1:12 PM CDT Sexual Orientation Not on file documented as of this encounter Miscellaneous Notes * Telephone Encounter - Umair Tan MD - 09/03/2023 2:39 PM CST [facility] Transfer Call Documentation Date:09/03/2023 Time:2:40 PM Patient: Sarah Mckeon : 1985 Referring Facility Name:[facility] Reason for Transfer: Acute Leukemia Brief Description (including applicable labs, imaging, consultations): 38 yo at [facility] who is being requested to be transferred to [facility] for acute leukemia. Casewas discussed wit the Heme/onc service and they agree to consult. Patient initially presented with malaise and found to have pancytopenia. smear with blast, HIV negative, rpr nonreactive, group C strep positive on throat swab., CT CAP negative. BM Biopsy shows acute myeloid leukemia. - VS stable - 136/77, p 72 - has gotten 1 unit of blood there - plt 42, wbc - 22, hgb 8.3 - crp 5.8 Patient needs on arrival to [facility]: Medicine admissions resident (ask stone processing machine operator for Medicine Admission) to be notified of arrival. Consultation to (N/A if blank): heme/onc I have accepted this patient for transfer to [facility]. If patient awaiting bed for >24hours, an update on patient's clinical condition is requested. Signed:Umair Tan MD 09/03/2023 UCT AMBASSADOR documented in this encounter Plan of Treatment Upcoming Encounters Date Type Department Care Team (Late st Contact Info) Description 10/27/2024 10:30 AM PRODUCT AMBASSADOR Appointment [facility] [address] [place] [address] Hussain Carias MD [address] [place] [phone] Britni Winston PA-C [address] [place] [address] 11/17/2024 9:00 AM PRODUCT AMBASSADOR Office Visit [facility] Group - Ophthalmology [address] [place] [phone] Song Hobson MD [address] [place] [address] [place] [address] documented as of this encounter Visit Diagnoses Not on filedocumented in this encounter
--- OUTSIDE RECORDS SUMMARY | 2024-08-31 21:33 | XMS_ITS | Encounter Summary ---
Author Organization [facility] Address [address] [place] [address] Care Team Providers Care Discount Clerk Name Role Phone Nilam Mayers MD Primary Care Provider +1- [phone] Reason for Visit * Auth/Cert (Routine) Specialty Diagnoses / Procedures Referred By Contac t Referred To Contact Diagnoses Acute leukemia. Referral ID Status Reason Start Date Expiration Date Visits Re quested Visits Authorized [id number] 1 1 Encounter Details Date Type Department Care Team (Late st Contact Info) Description 10/02/2023 8:55 AM PSYCHOLOGY FELLOW Clinical Support [facility] - Ophthalmology [address] [place] [phone] Song Hobson MD [address] [place] [address] [place] [phone] Umair Tan MD [address] [place] [address] DIV OF [facility] [place] [address] Papilledema (Primary Dx) Social History Tobacco Use Types [...] hard 09/06/2023 [facility] [place] of Occupat ional Health - Occupational Stress [...] st Contact Info) Description 10/27/2024 10:30 AM PSYCHOLOGY FELLOW Appointment [facility] [address] [place] [address] Hussain Carias MD [address] [place] [phone] Britni Winston, PA-C [address] [place] [address] 11/17/2024 9:00 AM PSYCHOLOGY FELLOW Office Visit [facility] - Ophthalmology [address] [place] [phone] Song Hobson MD [address] [place] [address] [place] [phone] Pending Results Name Type Priority Associated Diagnoses Date /Time OPTIC NERVE ANALYSIS OCT Ophthalmology Routine Papilledema 10/02/2023 8:39 AM PSYCHOLOGY FELLOW documented as of this encounter Visit Diagnoses Diagnosis Papilledema- Primary documented in this encounter Care Teams Discount Clerk Relationship Specialty Start Date End Date Nilam Mayers MD [address] [place] [phone] PCP - General Family Medicine 09/04/23 04/18/24 documented as of this encounter
--- OUTSIDE RECORDS SUMMARY | 2024-08-31 21:33 | XMS_ITS | Encounter Summary ---
Author Organization [facility] Address [address] [place] [address] Care Team Providers Care Blade Balancer Name Role Phone Nilam Mayers MD Primary Care Provider +1- [phone] Reason for Visit * Auth/Cert (Routine) Specialty Diagnoses / Procedures Referred By Contac t Referred To Contact Diagnoses Acute leukemia. Referral ID Status Reason Start Date Expiration Date Visits Re quested Visits Authorized [id number] 1 1 Encounter Details Date Type Department Care Team (Late st Contact Info) Description 10/02/2023 8:50 AM HAND INSPECTOR Clinical Support [facility] - Ophthalmology [address] [place] [phone] Song Hobson MD [address] [place] [address] [place] [phone] Umair Tan MD [address] [place] [address] DIV OF [facility] [place] [address] Papilledema (Primary Dx) Social History Tobacco Use [...] care, and heating? Not very hard 09/06/2023 [facility] of Occupat ional Health - Occupational Stress [...] slept in a custodial (including now)? No 09/06/2023 Sex and Gender [...] st Contact Info) Description 10/27/2024 10:30 AM HAND INSPECTOR Appointment [facility] [address] [place] [address] Hussain Carias MD [address] [place] [phone] Britni Winston, PA-C [address] [place], [place] [phone] 11/17/2024 9:00 AM HAND INSPECTOR Office Visit [facility] - Ophthalmology [address] [place] [phone] Song Hobson MD [address] [place] [address] [place] [phone] Pending Results Name Type Priority Associated Diagnoses Date /Time DOLL AUTO VISUAL FIELD EXTENDED Ophthalmology Routine Papilledema 10/02/2023 8:39 AM HAND INSPECTOR documented as of this encounter Visit Diagnoses Diagnosis Papilledema- Primary documented in this encounter Care Teams Blade Balancer Relationship Specialty Start Date End Date Nilam Mayers MD [address] [place] [phone] PCP - General Family Medicine 09/04/23 04/18/24 documented as of this encounter
--- OUTSIDE RECORDS SUMMARY | 2024-08-31 21:33 | XMS_ITS | Encounter Summary ---
Author Organization [facility] Address [address] [place], [place] [address] [address] Care Team Providers Care System Administration Advisor Name Role Phone Nilam Mayers MD Primary Care Provider +1- [phone] Encounter Details Date Type Department Care Team (Late st Contact Info) Description 10/08/2023 Orders Only [facility] - Hematology/Oncology [address] [place] [address] Tiana Burciaga, DO [address] [place] [address] Social History Tobacco Use Types Packs/Day Years [...] care, and heating? Not very hard 09/06/2023 [facility] [place] of Occupat ional Health - Occupational Stress [...] slept in a halfway (including now)? No 09/06/2023 Sex and Gender [...] st Contact Info) Description 10/27/2024 10:30 AM BROWNFIELD REDEVELOPMENT SPECIALIST Appointment [facility] [address] [place] [address] Hussain Carias MD [address] [place] [phone] Britni Winston PA-C [address] [place] [address] 11/17/2024 9:00 AM BROWNFIELD REDEVELOPMENT SPECIALIST Office Visit [facility] - Ophthalmology [address] [place] [phone] Song Hobson MD [facility] [place] [address] documented as of this encounter Visit Diagnoses Not on filedocumented in this encounter Care Teams System Administration Advisor Relationship Specialty Start Date End Date Nilam Mayers MD [address] [place] [phone] PCP - General Family Medicine 09/04/23 04/18/24 documented as of this encounter
--- OUTSIDE RECORDS SUMMARY | 2024-08-31 21:33 | XMS_ITS | Encounter Summary ---
Author Organization [facility] Address [address] [place] [address] Care Team Providers Care Plastic Parts Fabricator Trimmer Name Role Phone Nilam Mayers MD Primary Care Provider +1- [phone] Reason for Visit * Auth/Cert (Routine) Specialty Diagnoses / Procedures Referred By Contac t Referred To Contact Diagnoses Acute leukemia. Referral ID Status Reason Start Date Expiration Date Visits Re quested Visits Authorized [id number] 1 1 Encounter Details Date Type Department Care Team (Late st Contact Info) Description 09/30/2023 9:45 AM SALT WASHER Clinical Support [facility] - Ophthalmology [address] [place] [phone] Song Hobson MD [address] [place] [address] [place] [phone] Umair Tan MD [address] [place] [address] DIV OF [facility] [place] [address] Optic disc edema (Primary Dx) Social History [...] care, and heating? Not very hard 09/06/2023 [facility] of Occupat ional Health - [...] st Contact Info) Description 10/27/2024 10:30 AM SALT WASHER Appointment [facility] [address] [place] [address] Hussain Carias MD [address] [place] [phone] Britni Winston, PA-C [address] [place], [place] [phone] 11/17/2024 9:00 AM SALT WASHER Office Visit [facility]ician Group - Ophthalmology [address] [place] [phone] Song Hobson MD [address] [place] [address] [place] [phone] Pending Results Name Type Priority Associated Diagnoses Date /Time RETINAL ANALYSIS OCT Ophthalmology Routine Optic disc edema 09/30/2023 9:34 AM SALT WASHER documented as of this encounter Visit Diagnoses Diagnosis Optic disc edema- Primary Papilloedema, unspecified documented in this encounter Care Teams Plastic Parts Fabricator Trimmer Relationship Specialty Start Date End Date Nilam Mayers MD [address] [place] [phone] PCP - General Family Medicine 09/04/23 04/18/24 documented as of this encounter
--- OUTSIDE RECORDS SUMMARY | 2024-08-31 21:33 | XMS_ITS | Encounter Summary ---
Author Organization [facility] Address [facility] [place] [address] Care Team Providers Care Bone Tender Name Role Phone Nilam Mayers MD Primary Care Provider +1- [phone] Osmar Ragland MD Primary Care Provider +1 [phone] Encounter Details Date Type Department Care Team (Late st Contact Info) Description 10/03/2023 Ophth Exam [facility] - Ophthalmology [address] [place] [address] Dano Jean MD 1201 [facility] [place] [place] [address] Social History Tobacco Use Types [...] care, and heating? Not very hard 09/06/2023 [facility] [place] of Occupat ional Health - Occupational Stress [...] st Contact Info) Description 10/27/2024 10:30 AM PAD MACHINE FEEDER Appointment [facility] B[facility] CL[facility] [address] [place] [phone] Hussain Carias MD [address] [place] [address] Britni Winston, PA-C [address] [place] [address] 11/17/2024 9:00 AM PAD MACHINE FEEDER Office Visit [facility] - Ophthalmology [address] [place] [address], [place] [address] Song Hobson MD [address] [place] [address] [place] [address] documented as of this encounter Visit Diagnoses Not on filedocumented in this encounter Additional Health Concerns Infection Onset Date Last Indicated Resolved Time COVID-19 Under Investigation 11/10/2023 11/10/2023 11/10/2023 6:57 PM PAD MACHINE FEEDER COVID-19 Under Investigation 12/19/2023 12/19/2023 12/19/2023 3:31 PM CDT documented as of this encounter Care Teams Bone Tender Relationship Specialty Start Date End Date Nilam Mayers MD [address] [place] [phone] PCP - General Family Medicine 09/04/23 04/18/24 Osmar Ragland MD [address] [place] [phone] PCP - General Family Medicine 04/19/24 documented as of this encounter
--- OUTSIDE RECORDS SUMMARY | 2024-08-31 21:33 | XMS_ITS | Encounter Summary ---
Author Organization [facility] Address [facility] [place] [address] Care Team Providers Care Field Ring Assembler Name Role Phone Nilam Mayers MD Primary Care Provider +- [phone] Osmar Ragland MD Primary Care Provider [phone] Encounter Details Date Type Department Care Team (Late st Contact Info) Description 09/03/2023 Lab Requisition [facility] - Pathology Lab [address] [place] [address] Surjit Bassett MD [address] [facility] [address] [place] [address] Illness, unspecified Social History Tobacco Use Types Packs/Day Years Used Date Smoking Tobacco: Never Assessed AUDIT-C Answer Date Recorded Q1: How often [...] care, and heating? Not very hard 09/06/2023 [facility] of Occupat ional Health - Occupational Stress [...] on file documented as of this encounter Plan of Treatment Upcoming Encounters Date Type Department Care Team (Late st Contact Info) Description 10/27/2024 10:30 AM EVENT SERVICES MANAGER Appointment [facility] [address] [place] [address] Hussain Carias MD [address] [place] [phone] Britni Winston, PA-C [address] [place] [address] 11/17/2024 9:00 AM EVENT SERVICES MANAGER Office Visit [facility] - Ophthalmology [address] [place] [phone] Song Hobson MD [address] [place] [address] [place] [address] documented as of this encounter Procedures Procedure Name Priority Date/Time Associated Diagnosis Comments BONE MARROW BIOPSY (STL) Routine 09/02/2023 9:29 AM EVENT SERVICES MANAGER Illness, unspecified documented in this encounter Results * BONE MARROW BIOPSY (STL) (09/02/2023 9:29 AM EVENT SERVICES MANAGER) Case Report Bone Marrow Patholog y Report ?Case: [id number] ? Authorizing Provider: ??Luis Bassett MD ??Collected: ? 09/02/2023 09:29 AM ? Ordering Location: ? [facility] ? Received: ?09/03/2023 04:13 PM ? Pathologist: ? Yamil Coles MD ? Specimens: ?? A) - Bone Marrow Clot ? B) - Bone Marrow Core ? 09/04/2023 6:17 PM [facility] [place] Final Diagnosis Bone marrow, aspirate, clot section, and core biopsy: - Acute myeloid leukemia, NOS - See description. Peripheral blood smear: - Pancytopenia, marked. - Circulating blasts 09/04/2023 6:17 PM [facility] Comment Correlation with clinical features, available cytogenetics, FISH studies, and molecular studies recommended. 09/04/2023 6:17 PM [facility] Peripheral Smear Description RBC: Normocytic and normochromic anemia. No circulating nucleated RBCs WBC: Markedly decreased in number, scattered circulating blasts seen (24/100WBCs) Platelets: Rarely seen 09/04/2023 6:17 PM [facility] Bone Marrow Aspirate Specimen quality: Suboptimal, hemodiluted Spicules: Present, rare Trilineage Hematopoiesis: Markedly increased blasts (over 90%), with large size, fine chromatin, conspicuous to prominent nucleoli. Myeloids: Rare maturing myeloids seen Erythroids: Rarely seen, rare cells with nuclear contour irregularity, and rare binucleated cells Megakaryocytes: Rarely seen, rare microcytic forms, forms with separate nuclei, forms with hypo- or mono-lobation Storage iron (by special stain): Mildly decreased Sideroblastic iron (by special stain): No ring sideroblasts seen 09/04/2023 6:17 PM [facility] PATH[facility] Bone Marrow Core Biopsy and Clot Section Description Specimen quality: Adequate with 1.8 cm of evaluable marrow Cellularity: 95%, hypercellular Blasts: Markedly increased, forming sheets, with large size, fine chromatin, and conspicuous nucleoli. Highlighted by myeloperoxidase, and CD117 (approximately 80%). Essentially negative for CD34 Myeloid maturation and localization: Left-shifted. Markedly increased, highlighted by myeloperoxidase Erythroid maturation and localization: Decreased with mild architectural disarray, rarely highlighted by E-cadherin Megakaryocyte: Increased, including many hyperchromatic and hypolobated forms, microcytic forms, or forms with separate nuclei Lymphoid aggregates: Rare seen, comprising of small mature lymphocytes Reticulin stain: No increased fibrosis (MF-0/3) Clot section: Hematopoietic elements seen. Similar to core biopsy specimen Storage iron (by special stain): Adequate Sideroblastic iron (by special stain): No ring sideroblasts seen 09/04/2023 6:17 PM [facility] Flow Cytometry Summary Bone marrow, flow cytometric immunophenotypic analysis: - Markedly increased myeloblasts identified (By CD117 and MPO, approximately 78% of all events analyzed are blasts), consistent with acute myeloid leukemia. 09/04/2023 6:17 PM [facility] Clinical History 09/04/2023 6:17 PM [facility] Materials Received Received are 20 slide(s) and 3 blocks labeled [id number] along with a copy of the outside pathology report. [place] [address] . All original materials are returned to the referring institution, along with a copy of our final report. 09/04/2023 6:17 PM [facility] Pathologist Location at [facility] 09/04/2023 6:17 PM [facility] Disclaimer The performance characteristics of all immunohistochemical and indirect immunofluorescence stains (if any) cited in this report were determined by the Histopathology Laboratory of [facility]. Some of these tests were developed by [...] and interpreted by the attending (teaching) pathologist. 09/04/2023 6:17 PM [facility] Embedded Images 09/04/2023 6:17 PM [facility] LAB Pathology/Cytology BONE MARROW SPECIMEN / Unknown 09/02/2023 9:29 AM EVENT SERVICES MANAGER 09/03/2023 4:13 PM EVENT SERVICES MANAGER Miscellaneous samples (specimen) BONE MARROW SPECIMEN / Unknown 09/02/2023 9:29 AM EVENT SERVICES MANAGER 09/03/2023 4:13 PM EVENT SERVICES MANAGER Surjit Bassett MD LAB - PATHO LOGY/CYTOLOGY ORDERABLES [facility] PATHOLOGY LAB [address] [place] [address] documented in this encounter Visit Diagnoses Diagnosis Illness, unspecified documented in this encounter Additional Health Concerns Infection Onset Date Last Indicated Resolved Time CDIFF Under Investigation 09/14/2023 09/15/2023 1:20 PM EVENT SERVICES MANAGER COVID-19 Under Investigation 09/22/2023 09/22/2023 09/23/2023 12:28 AM EVENT SERVICES MANAGER COVID-19 Under Investigation 11/10/2023 11/10/2023 11/10/2023 6:57 PM EVENT SERVICES MANAGER COVID-19 Under Investigation 12/19/2023 12/19/2023 12/19/2023 3:31 PM CDT documented as of this encounter Care Teams Field Ring Assembler Relationship Specialty Start Date End Date Nilam Mayers MD [address] [place] [phone] PCP - General Family Medicine 09/04/23 04/18/24 Osmar Ragland MD [address] [place] [phone] PCP - General Family Medicine 04/19/24 documented as of this encounter
--- OUTSIDE RECORDS SUMMARY | 2024-08-31 21:33 | XMS_ITS | Encounter Summary ---
Author Organization [facility] Address [facility] [place] [address] Care Team Providers Care Brooch And Bracelet Maker Name Role Phone Nilam Mayers MD Primary Care Provider +- [phone] Osmar Ragland MD Primary Care Provider [phone] Encounter Details Date Type Department Care Team (Late st Contact Info) Description 09/02/2023 Lab Requisition [facility] - Pathology Lab [address] [place] [address] Surjit Bassett MD [address] [facility] [address] [place] [address] Other pancytopenia (HCC) Social History Tobacco Use Types Packs/Day [...] care, and heating? Not very hard 09/06/2023 [facility] of Occupat ional Health - Occupational Stress [...] st Contact Info) Description 10/27/2024 10:30 AM RESUME WRITER Appointment [facility] [address] [place] [address] Hussain Carias MD [address] [place] [phone] Britni Winston, PA-C [address] [place] [address] 11/17/2024 9:00 AM RESUME WRITER Office Visit [facility] - Ophthalmology [address] [place] [phone] Song Hobson MD [address] [facility] [address] [place] [phone] documented as of this encounter Procedures Procedure Name Priority Date/Time Associated Diagnosis Comments FLOW CYTOMETRY BONE MARROW Routine 09/02/2023 10:00 AM RESUME WRITER Other pancytopenia (CMS-HCC) documented in this encounter Results * FLOW CYTOMETRY BONE MARROW (09/02/2023 10:00 AM RESUME WRITER) Case Report Flow Cytometry ?Case: [id number] ? Authorizing Provider: ??Luis Bassett MD ??Collected: ? 09/02/2023 10:00 AM ? Ordering Location: ? [facility] ? Received: ?09/02/2023 01:17 PM ? Pathologist: ? Yamil Coles MD ? Specimen: ?Bone Marrow ? 09/02/2023 5:06 PM RESUME WRITER [facility] Final Diagnosis Bone marrow, flow cytometric immunophenotypic analysis: - Markedly increased myeloblasts identified (By CD117 and MPO, approximately 78% of all events analyzed are blasts), consistent with acute myeloid leukemia. - See interpretation. 09/02/2023 5:06 PM [facility] PATHOLOG[facility] LAB Flow Cytometry Interpretation Viability: 98% Lymphocytes: 17% B-cells: 25% of the lymphocytes, polytypic, kappa:lambda ratio 1.86:1 T-cells: 67% % of the lymphocytes, no immunophenotypic aberrancy detected Dim CD45 Region: 78%. Expansion of the dim CD45 region by an abnormal blast population expressing CD13, CD33, CD117, CD7, CD11c (partial), and MPO . The blasts lack expression of CD34, HLA-DR, TdT , CD1a, CD2, cyCD3, CD5, CD10, CD11b, CD14, CD19, CD20, cyCD22, CD56, CD64, nyFD51i, CD30. By CD117 and MPO, approximately 78% of all events analyzed are blasts. Monocytes: 0% Granulocytes: 4%. Few and unremarkable, based on the markers performed A bone marrow aspirate smear prepared from the flow cytometry specimen is reviewed for supplier quality engineering manager purposes. The preliminary findings were relayed to [facility] at [phone] in the afternoon of 09/02/[address] Coles. 09/02/2023 5:06 PM [facility] PATH[facility] LAB Flow Cytometry Results Differential Result Comment Flow Cell Count /uL 36,400 Total Viability % 98.0 Lymphocytes % 17 Dim CD45 Region % 78 Monocytes % 0 Granulocytes % 4 09/02/2023 5:06 PM [facility] PATH[facility] Reason for test Other pancytopenia ([facility]) 284.19 09/02/2023 5:06 PM [facility] PATH[facility] Client Specimen ID # [id number] 09/02/2023 5:06 PM [facility] PATH[facility] LAB Number of markers 24 were performed. A-2 Flow CD10 A-3 Flow CD13 A-5 Flow CD20 A-16 Flow CD2 A-18 Flow CD14 A-21 Flow CD117 A-22 Flow CD11b A-23 Flow CD11c A-1 Flow CD5 A-4 Flow CD19 A-6 Flow CD33 A-7 Flow CD34 A-8 Flow CD45 A-14 cyCD22 A-15 mcIZ22b A-17 Flow CD7 A-19 Flow CD56 A-20 Flow CD64 A-9 Ashton+CD19+ A-10 Lambda+CD19+ A-11 Flow MPO A-12 Flow TdT A-13 cyCD3 A-24 Flow HLA-DR 09/02/2023 5:06 PM [facility] PATH[facility] LAB Pathologist Location at [facility] 09/02/2023 5:06 PM [facility] PATHOLOG[facility] LAB Disclaimer Test performed at [facility], [address] [place], [place], [address]. *The established laboratory minimum viability is 70%. [...] qualified to perform high complexity clinical testing. 09/02/2023 5:06 PM [facility] PATHOLOG[facility] LAB Embedded Images 5:06 PM [facility] PATH[facility] LAB Pathology/Cytolo gy BONE MARROW SPECIMEN / Unknown 09/02/2023 10:00 AM RESUME WRITER 09/02/2023 1:17 PM RESUME WRITER Surjit Bassett MD LAB - PATHO LOGY/CYTOLOGY ORDERABLES [facility] [address] [place] [address]. [address] [phone] documented in this encounter Visit Diagnoses Diagnosis Other pancytopenia (HCC) Other pancytopenia documented in this encounter Additional Health Concerns Infection Onset Date Last Indicated Resolved Time CDIFF Under Investigation 09/14/2023 09/15/2023 1:20 PM RESUME WRITER COVID-19 Under Investigation 09/22/2023 09/22/2023 09/23/2023 12:28 AM RESUME WRITER COVID-19 Under Investigation 11/10/2023 11/10/2023 11/10/2023 6:57 PM RESUME WRITER COVID-19 Under Investigation 12/19/2023 12/19/202312/19/2023 3:31 PM CDT documented as of this encounter Care Teams Brooch And Bracelet Maker Relationship Specialty Start Date End Date Nilam Mayers MD [address] [place] [phone] PCP - General Family Medicine 09/04/23 04/18/24 Osmar Ragland MD [address] [place] [address] PCP - General Family Medicine 04/19/24 documented as of this encounter
--- OUTSIDE RECORDS SUMMARY | 2024-08-31 21:33 | XMS_ITS | Encounter Summary ---
Author Organization [facility] Address [facility] [place] [address] Care Team Providers Care Advertising Sales Assistant Name Role Phone Nilam Mayers MD Primary Care Provider [phone]- [phone] Osmar Ragland MD Primary Care Provider [phone] Encounter Details Date Type Department Care Team (Late st Contact Info) Description 09/29/2023 Ophth Exam [facility] - Op[facility]mology [address] [facility], [place] [phone] Jerel Beach MD [address] [facility] [place] [address] Social History Tobacco Use Types Packs/Day Years [...] care, and heating? Not very hard 09/06/2023 [facility] [place] of Occupat ional Health - Occupational Stress [...] st Contact Info) Description 10/27/2024 10:30 AM GUT PULLER Appointment [facility]IC [address] [place] [address] Hussain Carias MD [address] [place] [phone] Britni Winston PABaronC [address] [place], [place] [phone] 11/17/2024 9:00 AM GUT PULLER Office Visit [facility] - Ophthalmology [address] [place] [phone] Song Hobson MD [address] [place] [address] DEPT [place] [address] documented as of this encounter Visit Diagnoses Not on filedocumented in this encounter Additional Health Concerns Infection Onset Date Last Indicated Resolved Time COVID-19 Under Investigation 11/10/2023 11/10/2023 11/10/2023 6:57 PM GUT PULLER COVID-19 Under Investigation 12/19/2023 12/19/2023 12/19/2023 3:31 PM CDT documented as of this encounter Care Teams Advertising Sales Assistant Relationship Specialty Start Date End Date Nilam Mayers MD [address] [place] [phone] PCP - General Family Medicine 09/04/23 04/18/24 Osmar Ragland MD [address] [place] [phone] PCP - General Family Medicine 04/19/24 documented as of this encounter
--- OUTSIDE RECORDS SUMMARY | 2024-08-31 21:33 | XMS_ITS | Encounter Summary ---
Author Organization [facility] Address [facility]3 [facility] [place] [address] Care Team Providers Care Director Smb Sales Name Role Phone Nilam Mayers MD Primary Care Provider [phone]- [phone] Osmar Ragland MD Primary Care Provider +[phone] Encounter Details Date Type Department Care Team (Late st Contact Info) Description 10/01/2023 Ophth Exam [facility] - Op[facility]mology [address] [place] [address] Dano Jean MD [address] [facility] [place] [address] Social History Tobacco Use Types [...] Not very hard 09/06/2023 [facility] [place] of Occupat ional Health - Occupational Stress [...] st Contact Info) Description 10/27/2024 10:30 AM COLLEGE DEAN Appointment [facility] [address] [place] [phone] Hussain Carias MD [address] [place] [address] Britni Winston, PA-C [address] [place] [address] 11/17/2024 9:00 AM COLLEGE DEAN Office Visit [facility] - Ophthalmology [address] [place] [address], [place] [address] Song Hobson MD [address] [place] [address] [place] [address] documented as of this encounter Visit Diagnoses Not on filedocumented in this encounter Additional Health Concerns Infection Onset Date Last Indicated Resolved Time COVID-19 Under Investigation 11/10/2023 11/10/2023 11/10/2023 6:57 PM COLLEGE DEAN COVID-19 Under Investigation 12/19/2023 12/19/2023 12/19/2023 3:31 PM CDT documented as of this encounter Care Teams Director Smb Sales Relationship Specialty Start Date End Date Nilam Mayers MD [address] [place] [phone] PCP - General Family Medicine 09/04/23 04/18/24 Osmar Ragland MD [address] [place] [phone] PCP - General Family Medicine 04/19/24 documented as of this encounter
--- OUTSIDE RECORDS SUMMARY | 2024-08-31 21:33 | XMS_ITS | Encounter Summary ---
Author Organization [facility] Address [facility]3 [facility] [place] [address] Care Team Providers Care Sanipractic Physician Name Role Phone Nilam Mayers MD Primary Care Provider [phone]- [phone] Osmar Ragland MD Primary Care Provider [phone] Encounter Details Date Type Department Care Team (Late st Contact Info) Description 10/02/2023 Ophth Exam [facility] - Op[facility]mology [address] [place] [address] Dano Jean MD 12[address] [facility] [place] [address] Social History Tobacco Use Types [...] care, and heating? Not very hard 09/06/2023 [facility] [place] of Occupat ional Health - Occupational Stress [...] st Contact Info) Description 10/27/2024 10:30 AM ENGRAVER HAND HARD METALS Appointment [facility] B[facility] CLINIC [address] [place] [phone] Hussain Carias MD [address] [place] [address] Britni Winston, PA-C [address] [place] [address] 11/17/2024 9:00 AM ENGRAVER HAND HARD METALS Office Visit [facility] - Ophthalmology [address] [place] [address], [place] [address] Song Hobson MD [address] [place] [address] DEPT [place] [address] documented as of this encounter Visit Diagnoses Not on filedocumented in this encounter Additional Health Concerns Infection Onset Date Last Indicated Resolved Time COVID-19 Under Investigation 11/10/2023 11/10/2023 11/10/2023 6:57 PM ENGRAVER HAND HARD METALS COVID-19 Under Investigation 12/19/2023 12/19/2023 12/19/2023 3:31 PM CDT documented as of this encounter Care Teams Sanipractic Physician Relationship Specialty Start Date End Date Nilam Mayers MD [address] [place] [phone] PCP - General Family Medicine 09/04/23 04/18/24 Osmar Ragland MD [address] [place] [phone] PCP - General Family Medicine 04/19/24 documented as of this encounter
--- OUTSIDE RECORDS SUMMARY | 2024-08-31 21:33 | XMS_ITS | Encounter Summary ---
Author Organization [facility] Address [address] [place] [address] Care Team Providers Care Frame Nailer Name Role Phone Nilam Mayers MD Primary Care Provider +1- [phone] Reason for Visit * Auth/Cert (Routine) Specialty Diagnoses / Procedures Referred By Contac t Referred To Contact Diagnoses Acute leukemia. Referral ID Status Reason Start Date Expiration Date Visits Re quested Visits Authorized [id number] 1 1 Encounter Details Date Type Department Care Team (Late st Contact Info) Description 09/30/2023 9:50 AM CERAMIC TILE SETTER Clinical Support [facility] - Ophthalmology [address] [place] [phone] Song Hobson MD [address] [place] [address] [place] [phone] Umair Tan MD [address] [place] [address] [facility] [place] [address] Optic disc edema (Primary Dx) Social History [...] care, and heating? Not very hard 09/06/2023 [facility] of Occupat ional Health - Occupational [...] st Contact Info) Description 10/27/2024 10:30 AM CERAMIC TILE SETTER Appointment [facility] B[facility] CLIN[facility] [address] [place] [address] Hussain Carias MD [address] [place] [phone] Britni Winston, PA-C [address] [place], [place] [phone] 11/17/2024 9:00 AM CERAMIC TILE SETTER Office Visit [facility] - Ophthalmology [address] [place] [phone] Song Hobson MD [address] [place] [address] DEPT [place] [phone] Pending Results Name Type Priority Associated Diagnoses Date /Time FUNDUS PHOTO BOTH EYES Ophthalmology Routine Optic disc edema 09/30/2023 9:34 AM CERAMIC TILE SETTER documented as of this encounter Visit Diagnoses Diagnosis Optic disc edema- Primary Papilloedema, unspecified documented in this encounter Care Teams Frame Nailer Relationship Specialty Start Date End Date Nilam Mayers MD [address] [place] [phone] PCP - General Family Medicine 09/04/23 04/18/24 documented as of this encounter
--- OUTSIDE RECORDS SUMMARY | 2024-08-31 21:33 | XMS_ITS | Encounter Summary ---
Author Organization [facility] Address [address] [place], [place] [address] [address] Care Team Providers Care Emergency Medical Technician/Driver Name Role Phone Unavailable Primary Care Provider Unavailabl e Encounter Details Date Type Department Care Team (Latest Contact Info) Description 09/03/2023 Travel Social History Tobacco Use Types Packs/Day [...] Contact Info) Description 10/27/2024 10:30 AM CERTIFIED OPHTHALMIC SURGICAL ASSISTANT Appointment [facility] CL[facility] [address] [place] [address] Hussain Carias MD [address] [place] [phone] Britni Winston, PA-C [address] [place] [address] 11/17/2024 9:00 AM CERTIFIED OPHTHALMIC SURGICAL ASSISTANT Office [facility] - Ophthalmology [address] [place] [phone] Song Hobson MD [address] [place] [address] [place] [address] documented as of this encounter Visit Diagnoses Not on filedocumented in this encounter
--- OUTSIDE RECORDS SUMMARY | 2024-08-31 21:33 | XMS_ITS | Encounter Summary ---
Author Organization [facility] Address [address] [place], [place] [address] [address] Care Team Providers Care Bariatric Program Coordinator Name Role Phone Nilam Mayers MD Primary Care Provider [phone] Reason for Referral * Consultation (Urgent) - Closed Specialty Diagnoses / Procedures Referred By Contac t Referred To Contact Transitional Care Diagnoses IIH (idiopathic intracranial hypertension) French Novoa MD [address] [place] [address] [address] Referral ID Status Reason Start Date Expiration Date V isits Requested Visits Authorized [id number] Closed Specialty Services Required 10/09/2023 10/08/[address] REPRESENTATIVE * Consultation (Routine) - Pending Review Specialty Diagnoses / Procedures Referred By Contac t Referred To Contact Diagnoses IIH (idiopathic intracranial hypertension) French Novoa MD [address] [place] [address] Referral ID Status Reason Start Date Expiration Date Visits Requested Visits Authorized [id number] Pending Review Specialty Services Required 10/09/2023 10/08/[address] REPRESENTATIVE * Evaluate & Treat (Routine) - Pending Review Specialty Diagnoses / Procedures Referred By Contac t Referred To Contact Ophthalmology Diagnoses IIH (idiopathic intracranial hypertension) French Novoa MD [address] [place] [address] [facility] [address] [facility], [place] [address] Referral ID Status Reason Start Date Expiration Date Visits Requested Visits Authorized [id number] Pending Review Discharge Follow-up 10/09/2023 10/08/[address] REPRESENTATIVE * Radiology Services (Routine) - Closed Specialty Diagnoses / Procedures Referred By Ratna sher Referred To Contact CT Scan Diagnoses 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) Abnormal imaging of central nervous system Procedures CT HEAD WO CONTRAST Dori Muñiz APRN-CNP [address] [place] [address] [facility] [address] [place] [address] Referral ID Status Reason Start Date Expiration Date Visits Re quested Visits Authorized [id number] Closed 11/10/2023 11/09/[address] REPRESENTATIVE * Evaluate & Treat (Routine) - Closed Specialty Diagnoses / Procedures Referred By Ratna sher Referred To Contact Neurological Surgery Diagnoses 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) Abnormal imaging of central nervous system Dori Muñiz APRN-CNP [address] [place] [address] Stas Lomeli MD [address] [place] [address] Referral ID Status Reason Start Date Expiration Date V isits Requested Visits Authorized [id number] Closed Discharge Follow-up 10/01/2023 09/30/2024 1 1 Scheduling Instructions Call [phone] to make a follow up appointment in clinic in 4-[address] REPRESENTATIVE Reason for Visit * Auth/Cert (Routine) Specialty Diagnoses / Procedures Referred By Contac t Referred To Contact Diagnoses Acute leukemia. Referral ID Status Reason Start Date Expiration Date Visits Re quested Visits Authorized [id number] 1 1 Encounter Details Date Type Department Care Team (Latest Contact Info) Description 09/03/2023 11:48 PM ARTIST REPRESENTATIVE - 10/09/2023 5:19 PM ARTIST REPRESENTATIVE Hospital Encounter [facility] ACUTE [address] [place] [phone] Umair Tan MD [address] [facility] [place] [address] Cheryl Cronin MD [address] [place] [phone] Myah Roberts, DO [address] [place] [phone] Soraya Malik MD [address] [facility] [place] [address] Bernard Mancuso MD [address] [place] [address] Jair Burgess MD [address] [place] [phone] Kate Price DO [address] [facility] [place] [address] Librado Mora DO [address] [place] [address] French Novoa MD [address] [place] [address] Internal Medicine Discharge Disposition: Home or Self [...] care, and heating? Not very hard 09/06/2023 [place] [facility] - Occupational Stress [...] Sign Reading Time Taken Comments Blood Pressure 126/89 10/09/2023 4:14 PM ARTIST REPRESENTATIVE Pulse 105 10/09/2023 4:14 PM ARTIST REPRESENTATIVE Temperature 36.4 ??C (97.5 ??F) 10/09/2023 4:14 PM CS T Respiratory Rate 18 10/09/2023 4:14 PM ARTIST REPRESENTATIVE Oxygen Saturation 100% 10/09/2023 4:14 PM ARTIST REPRESENTATIVE Inhaled Oxygen Concentration 21% 09/16/2023 4 :17 AM ARTIST REPRESENTATIVE Weight 108.7 kg (239 lb 9.6 oz) 10/09/2023 4:59 AM ARTIST REPRESENTATIVE Height 157.5 cm (5' 2 ) 10/07/2023 4:00 AM ARTIST REPRESENTATIVE Body Mass Index 43.82 10/07/2023 4:00 AM ARTIST REPRESENTATIVE documented in this encounter Functional Status Functional [...] 10/09/2023 documented as of this encounter Discharge Summaries * French Novoa MD - 10/09/2023 9:59 AM CST Images from the original note were not included. Hospital Discharge Summary Patient ID: Selvin Mckeon [id number] 38 year old 1985 Admit date: 09/03/2023 Discharge date: 10/09/23 Admitting Physician: Umair Tan MD Discharge Physician: French Novoa MD Present on Admission: ??? 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 Pancytopenia (CMS-HCC) ??? Tonsillitis Discharge Diagnoses: AML, SAH, IIH, neutropenic fever Admission Condition: poor Discharged Condition: good Indication for Admission: AML Hospital Course: Selvin Mckeon is a 38 year old female with no significant past medical history who presented on 09/03 with fatigue and flu-like symptoms. 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 Hospital course c/b persistent tachycardia, neutropenic fever, and hypoxia. Hospital course also c/b leukemic infiltrates on fundoscopic exam per Ophthalmology. An MRI was obtained which showeda small SAH, for which NSGY was consulted. After reviewing of CTH and CTA, NSGY determined that no acute surgical intervention was required and recommended OP f/u. Pt also received a Lumbar puncture with intrathecal Cytarabine for concern for leukemic infiltrates around eye. 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 Pt also required HiDAC Cytarabine inpatient for consolidation therapy. Neurology was also consulted for concern for elevated ICP given CT imaging and recommended a repeat LP with opening pressure and agreed with acetazolamide. Acetazolamide dropped bicarb so it was held. Repeat LP for IT chemo 10/06 showing open pressure 30 ccH2O. Resumed aceatolamide with VBG showing appropriate respiratory compensation for metabolic acidosis. By 10/09 she had completed consolidation therapy. She was discharged to home with OI ppx medications as well as PRNs. She has follow up with oncology, bridge clinic and optho. Items Needed on Follow-up: > Bridge clinic, please check a BMP and VBG to be sure she is tolerating acetazolamide, goal is to increase to 1000 mg BID Consults: NSGY, Optho, Neuro, H/O Pending Labs and Studies: None Discharge Communication: Patient's hospital course was conveyed to patient . Significant Diagnostic Studies: CBC: Recent Labs Lab Units 10/08/23 2152 10/07/23 2031 10/06/23 2041 WBC x10E9/L 1.7* 3.7* 2.5* RBC x10E12/L 2.27* 2.48* 2.43* HGB g/dL 7.1* 7.8* 7.5* HCT % 19.8* 22.0* 21.5* BMP: Recent Labs Lab Units 10/08/23215110/07/23203010/06/232040 NA mmol/L 140 142 137 CL mmol/L 113* 112* 114* CO2 mmol/L 16* 19* 18* BUN mg/dL 17 18 13 CREATININE mg/dL 0.67 0.79 0.64 CALCIUM mg/dL 9.5 9.3 9.1 Magnesium: No results for input(s): MG in the last 168 hours. Phosphorus: Recent Labs Lab Units 10/08/23215110/07/23203010/06/232040 PHOS mg/dL 2.8* 3.2 3.2 Coagulation: No results for input(s): PT , INR , APTT in the last 168 hours. Endocrine: No results for input(s): TSH , A1C in the last 168 hours. LFTs: Recent Labs Lab Units 10/08/23215110/07/23203010/06/232040 AST U/L 39* 54* 54* ALT U/L 89* 101* 82* TBILI mg/dL 0.6 0.8 0.4 ALB g/dL 3.4 3.6 3.2* FL LUMBAR PUNCT FOR CHEMO INJ Result Date: 10/06/2023 IMPRESSION: 1. Successful lumbar puncture under fluoroscopic guidance at level L3-4. 2. Successful injection of intrathecal chemotherapeutic agent. 3. Successful measurement of opening pressure: 31 cm of water in the prone position. Report dictated by Sivakumar Garrido DO (Video Arcade Manager). I, Sara Huitron MD have personally reviewed [...] Augustine Davison MD on 10/03/2023 10:24 AM Discharge Exam: Blood pressure 127/76, pulse (!) 125, temperature 97.7 ??F (36.5 ??C), temperature source Oral, resp. rate 18, height 1.575 m (5' 2 ), weight 108.7 kg (239 lb 9.6 oz), SpO2 100%. GEN: well nourished in NAD CHEST: Clear to auscultation bilaterally HEART: Regular rate and rhythm, Nl S1 and S2 No gallops. GI: Abdomen soft and non tender, non-distended, +BS EXT: No edema. PSYCH: Alert and oriented to person place time and situation. Good mood, appropriate affect. Disposition: Home Patient Instructions: Medication List START taking these medications acetaZOLAMIDE 250 MG tablet Commonly known as: Diamox Take 2 (two) tablets by mouth 2 times daily dexAMETHasone 0.1 % ophthalmic suspension Commonly known as: Decadron Instill 2 (two) drops into both eyes 4 times daily for 3 days dicyclomine 20 MG tablet Commonly known as: Bentyl Take 1 (one) tablet by mouth 3 times daily as needed (cramping) famotidine 20 MG tablet Commonly known as: Pepcid Take 1 (one) tablet by mouth 2 times daily levoFLOXacin 500 MG tablet Commonly known as: Levaquin Take 1 (one) tablet by mouth once daily ondansetron (disintegrating) 8 MG tablet Commonly known as: Zofran ODT Take 1 (one) tablet by mouth 2 times daily as needed for Nausea/Vomiting Allow tablet to dissolve on the tongue posaconazole 100 MG tablet Commonly known as: Noxafil Take 3 (three) tablets by mouth 2 times daily for 1 day, THEN 3 (three) tablets daily with dinner for 30 days. Start taking on: October 08, 2023 prochlorperazine 10 MG tablet Commonly known as: Compazine Take 1 (one) tablet by mouth every 6 hours as needed for Nausea/Vomiting valACYclovir 500 MG tablet Commonly known as: Valtrex Take 1 (one) tablet by mouth 2 times daily Where to Get Your Medications These medications were sent to [facility] [place] [place] - [address] [facility] [address] [address] [facility] [address] ?? acetaZOLAMIDE 250 MG tablet ?? dicyclomine 20 MG tablet ?? famotidine 20 MG tablet ?? levoFLOXacin 500 MG tablet ?? ondansetron (disintegrating) 8 MG tablet ?? posaconazole 100 MG tablet ?? prochlorperazine 10 MG tablet ?? valACYclovir 500 MG tablet Information about where to get these medications is not yet available Ask your nurse or doctor about these medications ?? dexAMETHasone 0.1 % ophthalmic suspension Discharge Instructions DISCHARGE INSTRUCTIONS? A MESSAGE FROM YOUR DOCTORS:?? Dear Selvin Mckeon,? 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 You were treated with induction and consolidationchemotherapy. Your course was complicated by bleeding around the brain, high pressure around the brain and infection. 1. Subarachnoid hemorrhage - nothing in particular needs to be done. You will follow up with neurological surgery with a repeat CT scan of your head 2. Idiopathic intracranial hypertension - high pressure around your brain which can lead to vision loss. You will take the acetazolamide (diamox) twice daily and follow up with the ophthalmologists and neurologists (eye and brain doctors) 3. Pulmonary embolism - a blood clot in your lungs. No treatment is needed for this at this time 4. Infection - you got IV antibiotics while you were here, you will take the infection prophylaxis medications like we discussed (see AVS for how to take them) Because a lot of new things are going on I would like you to follow up in the hospital discharge (bridge) clinic next week to regroup and get any and all questions answered. ? 1. DISCHARGE MEDICATIONS:? Below were changes made to your home medications:? START TAKING (and why)? -? See attached AVS for your medication list ? Other than the changes stated above, continue all other home medications as prescribed.? Please discuss these changes with your Primary Care Physician (or your specialist doctor).?? If you have any questions about your medications, please ask the pharmacy when you hop picker your prescription. You may also call your primary provider if you still have questions.? ? 2. FOLLOW-UP:? A) Below are your scheduled appointments? Future Appointments Friday October 13, 2023 2:00 PM Appointment with Britni Winston; [facility] at [facility] ([phone]) [address] [facility] [address] October 10:30 AM Appointment with [facility] at [facility]itional Care at [facility] ([phone]) [address] [facility] [address] Sunday November 19, 2023 9:00 AM Appointment with [facility] OP CT 2 at [facility] SCAN ([phone]) [address] [facility] [address] Sunday November 19, 2023 9:45 AM (Arrive by 9:30 AM) Appointment with Stas Lomeli at [facility] - Neurosurgery ([phone]) [address] [facility] [address] Saturday December 30, 2023 8:30 AM (Arrive by 8:15 AM) Appointment with Song Hobson at [facility] - Ophthalmology ([phone]) [address] [facility] [address] As directed Imaging: CT HEAD WO CONTRAST As directed Outpatient Referral: Ref to [facility] Transitional [facility] As directed Outpatient Referral: Referral to Neurology ? -If you are not going home but to Rehab or Usp, ask the providers there about going to future appointments.?? ? B) It is essential that you keep all your follow-up appointments and go to your doctors??? appointments as scheduled. If a follow-up with your primary care provider has not been scheduled, you need to schedule an appointment to follow- up on your hospitalization within 1-2 weeks. If there is a conflict, please call the clinic ahead of time and reschedule the appointment.? ? 3. ?Lifestyle Modifications? -It is very important for your health to AVOID/STOP smoking cigarettes. Please talk to your primarycare physician if you need help quitting smoking.? -Please include plenty of fruits and vegetables in your diet and maintain a healthy diet.? -Discuss an exercise program with your primary care physician. It is recommended that most individuals should exercise for 20 minutes at least 5 times per week.? Please call your Primary Care Provider, report to the nearest emergency room or call 911 if you develop new or concerning symptoms, including, but not limited to, fever, chest pain, palpitations, numbness, worsening confusion, weakness in arms/legs, dizziness, or worsening shortness of breath.? Thank you for allowing us to participate in your care!? ? Internal Medicine Team? [facility] [address]? [place] [address]? You are being referred to the [facility] for follow up after your hospital stay. Location: The clinic is located on the second floor of [facility] at [facility]. The entrance can be found off [facility] and parking is available across the street in the parking garage. See the map below. Address: The [facility] at [address] [place] [address] Hours: Friday to Friday 8:00 AM to 4:00 PM The [facility] ([facility] Recovery, Informing Decisions & Guiding Empowerment) Clinic provides a one-time appointment with a physician or advanced practitioner within 14 days after leaving the hospital. The [facility] works to support patient care transitions, recovery, and reduced risk of hospitalreadmission and additional emergency department visits. All patients receive the best possible carefor their health needs and are supported in their transition from hospital discharge to on-going primary and specialty care. The [facility] visit includes: ? Check-up on your overall health ? Understanding what medications you???re taking ? Access and help to afford your medications ? Possible tests and blood work ? Verification of follow-up appointments For your visit: ? Bring a list of questions about your recent hospitalization and treatment plan. ? Bring your discharge paperwork and all your current medications with you to the visit. ? Arrive 15 minutes before your appointment and allow at least 60 minutes for your appointment. ? Bring your picture ID and insurance card if you have it Frequently Asked Questions: How do I make my appointment? After your provider makes the referral, the clinic staff will call you to schedule it. It is important that we have your correct phone number on file before you discharge. In some instances, the appointment may be made just before you discharge. If you discharge from the hospital and no one has contacted you in 1-2 business days, please call [phone] and the staff will assist you. Where do I park? Free parking is available in the [employer] [facility]age located across the street from [facility]. When you arrive at the garage, you will get a ticket which you will have validated at the front end developer on theFirst Floor of [facility]. What if I do not have insurance? What is the cost? There is no copay required for a [facility] appointment. If you do not have insurance, our clinic [employer] Operator, may be able to refer you to a service that can help you get insurance. What if I already have a primary care appointment soon after my hospital discharge? If you already have an upcoming primary care appointment, then you may not need a [facility] clinic appointment. You can call our clinic to discuss with one of our staff. Is this a walk-in clinic? No, you must have a referral from your hospital provider to have an appointment. What if I need to reschedule or cancel my appointment? Please call [phone] and the staff will assist you. If you need to cancel, we ask that you call24 hours before your appointment. What if I need transportation assistance? When our team schedules your appointment, they will ask if you need transportation assistance and can help you coordinate that. Thank you! We look forward to seeing you at the [facility]. Signed: French Novoa MD 10/09/2023 Time spent on discharge: >30 minutes. Time was spent on preparation of discharge records, prescriptions, counseling patient, working withsocial work and nursing, discussing with family. ST REPRESENTATIVE documented in this encounter Discharge Instructions * Discharge Instructions* French Novoa MD - 10/09/2023 9:38 AM ARTIST REPRESENTATIVE Images from the original note were not included. DISCHARGE INSTRUCTIONS? A MESSAGE FROM YOUR DOCTORS:?? Dear Selvin Mckeon,? 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 You were treated with induction and consolidationchemotherapy. Your course was complicated by bleeding around the brain, high pressure around the brain and infection. Subarachnoid hemorrhage - nothing in particular needs to be done. You will follow up with neurological surgery with a repeat CT scan of your head Idiopathic intracranial hypertension - high pressure around your brain which can lead to vision loss. You will take the acetazolamide (diamox) twice daily and follow up with the ophthalmologists Pulmonary embolism - a blood clot in your lungs. No treatment is needed for this at this time Infection - you got IV antibiotics while you were here, you will take the infection prophylaxis medications like we discussed (see AVS for how to take them) Because a lot of new things are going on I would like you to follow up in the hospital discharge (bridge) clinic next week to regroup and get any and all questions answered. ? DISCHARGE MEDICATIONS:? Below were changes made to your home medications:? START TAKING (and why)? -? See attached AVS for your medication list ? Other than the changes stated above, continue all other home medications as prescribed.? Please discuss these changes with your Primary Care Physician (or your specialist doctor).?? If you have any questions about your medications, please ask the pharmacy when you hop picker your prescription. You may also call your primary provider if you still have questions.? ? 2. FOLLOW-UP:? A) Below are your scheduled appointments? Future Appointments Friday October 13, 2023 2:00 PM Appointment with Britni Winston; [facility] at [facility] ([phone]) [address] [facility] [address] October 10:30 AM Appointment with [facility] at Transitional Care at [facility] ([phone]) [address] [facility] [address] Sunday November 19, 2023 9:00 AM Appointment with [facility] OP CT 2 at [facility] ([phone]) [address] [facility] [address] Sunday November 19, 2023 9:45 AM (Arrive by 9:30 AM) Appointment with Stas Lomeli at [facility] - Neurosurgery ([phone]) [address] [facility] [address] Saturday December 30, 2023 8:30 AM (Arrive by 8:15 AM) Appointment with Song Hobson at [facility] - Ophthalmology ([phone]) [address] [place] [address] As directed Imaging: CT HEAD WO CONTRAST As directed Outpatient Referral: Ref to [facility] Transitional Care As directed Outpatient Referral: Referral to Neurology ? -If you are not going home but to Rehab or Usp, ask the providers there about going to future appointments.?? ? B) It is essential that you keep all your follow-up appointments and go to your doctors??? appointments as scheduled. If a follow-up with your primary care provider has not been scheduled, you need to schedule an appointment to follow- up on your hospitalization within 1-2 weeks. If there is a conflict, please call the clinic ahead of time and reschedule the appointment.? ? 3. ?Lifestyle Modifications? -It is very important for your health to AVOID/STOP smoking cigarettes. Please talk to your primarycare physician if you need help quitting smoking.? -Please include plenty of fruits and vegetables in your diet and maintain a healthy diet.? -Discuss an exercise program with your primary care physician. It is recommended that most individuals should exercise for 20 minutes at least 5 times per week.? Please call your Primary Care Provider, report to the nearest emergency room or call 911 if you develop new or concerning symptoms, including, but not limited to, fever, chest pain, palpitations, numbness, worsening confusion, weakness in arms/legs, dizziness, or worsening shortness of breath.? Thank you for allowing us to participate in your care!? ? Internal Medicine Team? [facility] [address]? [place] [address]? You are being referred to the [facility] for follow up after your hospital stay. Location: The clinic is located on the second floor of [facility] at [facility]. The entrance can be found off [facility] and parking is available across the street in the parking garage. See the map below. Address: [facility] at [address], [place] [address] Hours: Friday to Friday 8:00 AM to 4:00 PM The [facility] (Bridging Recovery, Informing Decisions & Guiding Empowerment) Clinic provides a one-time appointment with a physician or advanced practitioner within 14 days after leaving the hospital. The [facility] works to support patient care transitions, recovery, and reduced risk of hospitalreadmission and additional emergency department visits. All patients receive the best possible carefor their health needs and are supported in their transition from hospital discharge to on-going primary and specialty care. The [facility] visit includes: Check-up on your overall health Understanding what medications you???re taking Access and help to afford your medications Possible tests and blood work Verification of follow-up appointments For your visit: Bring a list of questions about your recent hospitalization and treatment plan. Bring your discharge paperwork and all your current medications with you to the visit. Arrive 15 minutes before your appointment and allow at least 60 minutes for your appointment. Bring your picture ID and insurance card if you have it Frequently Asked Questions: How do I make my appointment? After your provider makes the referral, the clinic staff will call you to schedule it. It is important that we have your correct phone number on file before you discharge. In some instances, the appointment may be made just before you discharge. If you discharge from the hospital and no one has contacted you in 1-2 business days, please call [phone] and the staff will assist you. Where do I park? Free parking is available in the [employer] [facility] located across the street from [facility]. When you arrive at the garage, you will get a ticket which you will have validated at the front end developer on theFirst Floor of [facility]. What if I do not have insurance? What is the cost? There is no copay required for a [facility] appointment. If you do not have insurance, our clinic [employer], may be able to refer you to a service that can help you get insurance. What if I already have a primary care appointment soon after my hospital discharge? If you already have an upcoming primary care appointment, then you may not need a [facility] appointment. You can call our clinic to discuss with one of our staff. Is this a walk-in clinic? No, you must have a referral from your hospital provider to have an appointment. What if I need to reschedule or cancel my appointment? Please call [phone] and the staff will assist you. If you need to cancel, we ask that you call24 hours before your appointment. What if I need transportation assistance? When our team schedules your appointment, they will ask if you need transportation assistance and can help you coordinate that. Thank you! We look forward to seeing you at the [facility] [employer] ST REPRESENTATIVE documented in this encounter Medications at Time of Discharge Medication Sig Dispensed Refills Start Date End Date acetaZOLAMIDE (Diamox) 250 MG tablet Take 2 (two) tablets by mouth 2 times daily 120 tablet 1 10/08/2023 11/08/2023 dexAMETHasone (Decadron) 0.1 % ophthalmic suspensionIndications:A cute leukemia of unspecified 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) Instill 2 (two) drops into both eyes 4 times daily for 3 days 10/08/2023 10/11/2023 dicyclomine (Bentyl) 20 MG tablet Take 1 [...] as of this encounter Progress Notes * Gaurav Moyer - 10/09/2023 2:59 PM CST Music Therapy Progress Note Start Time: 1145 End Time: 1210 Music Therapy Goals: Increase relaxation and Increase meaningful social interaction Intervention Provided: Provide familiar / significant music, Utilized iso- principle and Provide opportunities for social interaction Therapy Type: Individual Therapy Patient Response: Appropriate Affect: Mood, appropriate Treatment Modality: Music Therapy Music Therapist Gaurav Moyer visited patient in [facility] room. Patient was observed sitting up in chair, alert and oriented. During interventions, Patient sang, moved in time with the music, smiled, and made eye contact. Patient reported looking forward to discharge and was in a positive mood throughout the session. At conclusion of session, no nonverbal indicators of distress observed. Gaurav Moyer, [facility], [place]- 10/09/2023 2:[address] REPRESENTATIVE * Fabien Anna, Graduate Nurse - 10/09/2023 1:00 PM CST Problem: Infection Goal: Signs and symptoms of infections are decreased or avoided Outcome: Completed Problem: Pain/Discomfort Goal: Patient exhibits reduced pain/discomfort as evidenced by pain scores Outcome: Completed Problem: Fall Risk Goal: Fall risk and fall related injury risk are minimized (interventions related to the fall risk can be found in the flowsheet documentation) Outcome: Completed Problem: Hemodynamic Status/Cardiac Output Goal: Patient has stable vital signs and fluid balance Outcome: Adequate for Discharge Problem: Nutrient: Increased nutrient needs (specify) Goal: Total intake will meet estimated nutrient needs Outcome: Completed ST REPRESENTATIVE * Nicho Centeno CPhT - 10/09/2023 11:49 AM CST MEDICATION TO BEDSIDE DELIVERY: COMPLETE Medication to Bedside delivery was completed for Selvin Mckeon. ??? A total of 4 prescriptions were delivered to the patient for discharge. ??? Medications were given to NURSE (nurse kramer ) ??? This delivery included a controlled substance: NO ??? This delivery included medication that should be stored in the fridge: NO Thank you for allowing the outpatient pharmacy to participate in the care of Selvin Mckeon. If you have any questions, please contact the outpatient pharmacy at [phone]. Nicho Centeno CPhT [facility] [address] [place], [place] [address] Hours of Operation Friday - Friday: 8:00am to 6:00pm Friday: 9:00am to 1:00pm Epic: [facility] *Ensure the patient and clinic's nearby ZIP codes box is unchecked* ST REPRESENTATIVE * Dano Jean MD - 10/09/2023 10:00 AM CST PLAN OF CARE- OPHTHALMOLOGY Recommendations: -Follow up will be scheduled for 10/15 at 8:[address] Hobson -Continue diamox 500 BID, attempt to uptitrate if possible to 1000 BID Dano Jean MD Ophthalmology ST REPRESENTATIVE * Zo Soto RN - 10/09/2023 8:57 AM CST [facility] received a referral from French Novoa MD to schedule an appointment following hospital discharge. The patient is scheduled to be seen on October at 1030. 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 09/03/2023: Patient transferred to [facility] for further care and evaluation. SUBJECTIVE History of Present Illness Chief Complaint: Concern for AML HPI on Initial Consult: Selvin Mckeon is a 38 year old female with no PMH who presented to [facility] presenting with fevers and flu like symptoms, initially thought to have tonsillitis seen on CT face?. Was treated with vanc cefepime and then CTX but had persistent pancytopenia so bone marrow biopsy was done whichshowed 78% blast on the bone marrow flow cytometry. Pt was transferred for concern for AML Formal bone marrow report still pending from [facility] - Lives alone with daughter ( 11 y old) who is currently staying with her dad No PMH of cancers , is adopted so not sure about FH No drugs or smoking or alcohol use Interval History: No acute events overnight. Patient afebrile and hemodynamically stable. No overnight transfusion requirements. LP cytology 10/06 with rare monocytes, no malignancy identified (no blasts). This AM, patient reports her vaginal bleeding is slightly increased but still estimates ~1 pad/day. Hgb 7.1 from7.8 yesterday. She denies fever, chills, headache, nausea, or vomiting. Review of Systems: As noted in HPI. Past Medical & Surgical History Patient Active Problem List Diagnosis ??? Acute hypoxic respiratory failure (CMS-HCC) ??? Pulmonary edema ??? Febrile neutropenia (CMS-HCC) ??? Pancytopenia (CMS-HCC) ??? Tonsillitis ??? 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 NEGATIVE PAST MEDICAL HISTORY - SEE PROBLEM LIST Past Surgical History: Procedure Laterality Date ??? Section ??? Cholecystectomy ??? KIDNEY STONES, REMOVAL Past Oncology History Cancer Staging No matching staging information was found for the patient. 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 (CMS-HCC) 09/03/2023 Initial Diagnosis Acute leukemia [...] (10/04/2023), 6,700 mg (10/04/2023), 6,700 mg (10/06/2023) Active Treatment Days for Selvin Mckeon (until 10/10/2023) 10/07/2023 ONCOLOGY TREATMENT: IP AML CONSOLIDATION - AGE <60 (HIGH DOSE CYTARABINE)(SANDHU HIDAC) Day 5, Cycle 1 (Started) Pre-Medications: ondansetron (Zofran) injection 8 mg, dexAMETHasone (Decadron) injection 8 mg Chemotherapy: cytarabine (Cytosar) 6,700 mg in 0.9% NaCl IV 597 mL infusion Social History Social History Tobacco Use ??? Smoking status: Former Packs/day: 1 Types: Cigarettes Start date: 2004 Quit date: 2010 Years since quittin.0 ??? Smokeless tobacco: Never Substance Use Topics ??? Alcohol use: Yes Comment: occasional Family History Family History Family history unknown: Yes Medications SCHEDULED MEDICATIONS: 0.9% NaCl injection 3 mL, Intracatheter, q8h acetaZOLAMIDE (Diamox) tablet 500 mg, Oral, BID dexAMETHasone (Decadron) 0.1 % ophthalmic suspension 2 drop, Each Eye, 4X/DAY famotidine (Pepcid) tablet 20 mg, Oral, BID perflutren lipid microsphere (Definity) injection 0.5 mL, Intravenous, intra- Procedure multiple valACYclovir (Valtrex) tablet 500 mg, Oral, BID [COMPLETED] cytarabine (Cytosar) 6,700 mg in 0.9% NaCl IV 597 mL infusion, Intravenous, q12h [COMPLETED] dexAMETHasone (Decadron) injection 8 mg, Intravenous, Once [COMPLETED] ondansetron (Zofran) injection 8 mg, Intravenous, q12h [COMPLETED] potassium chloride ER (Klor-Con M) tablet 40 mEq, Oral, q4h CONTINUOUS MEDICATIONS: PRN MEDICATIONS: Or Or 0.9% NaCl injection 1-10 mL, Intracatheter, PRN acetaminophen (Tylenol) tablet 650 mg, Oral, q6h PRN ALPRAZolam (Xanax) tablet 0.25 mg, Oral, BID PRN dextrose 10 % IV bolus, Intravenous, PRN dextrose 10 % IV bolus, Intravenous, PRN dicyclomine (Bentyl) tablet 20 mg, Oral, TID PRN docusate sodium (Colace) solution 50 mg, Oral, AT BEDTIME PRN glucagon (Glucagen) injection 1 mg, Subcutaneous, PRN glucose (Diabetic Use) oral gel, Oral, PRN guaiFENesin (Robitussin) solution 10 mL, Oral, q6h PRN heparin lock flush injection 500 Units, Intracatheter, PRN melatonin tablet 3 mg, Oral, AT BEDTIME PRN ondansetron (disintegrating) (Zofran ODT) tablet 8 mg, Oral, BID PRN ondansetron (Zofran) injection 8 mg, Intravenous, BID PRN oxyCODONE (immediate release) (Roxicodone) tablet 5 mg, Oral, q6h PRN prochlorperazine (Compazine) injection 5 mg, Intravenous, q6h PRN prochlorperazine (Compazine) tablet 10 mg, Oral, q4h PRN simethicone (Mylicon) chew tablet 80 mg, Oral, 4X/day PRN Allergies No Known Allergies OBJECTIVE Physical Exam Vitals: 10/08/23 2038 10/09/23 0032 10/09/23 0459 10/09/23 0500 BP: 120/78 121/74 115/75 Pulse: 91 90 106 Resp: 18 20 18 Temp: 97.6 ??F (36.4 ??C) 97.9 ??F (36.6 ??C) 97.8 ??F (36.6 ??C) SpO2: 99% 100% 100% Weight: 108.7 kg (239 lb 9.6 oz) Height: Wt Readings from Last 3 Encounters: 10/09/23 108.7 kg (239 lb 9.6 oz) ECO Gen: Resting comfortably sitting up on couch CV: RRR Resp: Symmetric chest rise bilaterally Abd: Soft, nontender, nondistended Ext: Trace pitting edema Neuro: Ambulates without assistance Psych: Appropriate mood and affect Laboratory Results Recent Labs Component Name 10/08/23215110/07/23203010/06/23204010/05/232050 WBC 1.7* 3.7* 2.5* 3.8* RBC 2.27* 2.48* 2.43* 2.34* HGB 7.1* 7.8* 7.5* 7.2* HCT 19.8* 22.0* 21.5* 20.9* MCV 87.2 88.7 88.5 89.3 MCHC 35.9 35.5 34.9 34.4 PLTCOUNT 72* 104* 125* 163 NEUTPCT - - 88.4* 71.1 LYMPHPCT - - 8.4* 12.7* NEUTABS 1.52* 1.50* 3.23 3.22 2.21 2.21 2.68 2.68 LYMPHABS 0.20* 0.44* 0.21* 0.48* BASOABS - - 0.00 0.00 Recent Labs Component Name 10/08/23215110/07/23203010/06/232040 POTASSIUM 4.2 3.4* 4.1 CO2 16* 19* 18* BUN 17 18 13 CREATININE 0.67 0.79 0.64 EGFR >90 >90 >90 GLUCOSE 168* 139* 152* CALCIUM 9.5 9.3 9.1 MAGNESIUM 2.3 2.3 2.3 PHOS 2.8* 3.2 3.2 ALT 89* 101* 82* AST 39* 54* 54* ALKPHOS 65 66 64 Pathology Results RESULT Normal FISH Result inv(3) or t(3;3) RPN1::MECOM Fusion: not detected Deletion 5q: not detected Monosomy 7: not detected Deletion 7q: not detected t(8;21) RUNX1::[id number] Fusion: not detected 11p15 (NUP98) Rearrangement: not detected 11q23 (KMT2A) Rearrangement: not detected inv(16) or t(16;16) CBFB::MYH11 Fusion: not detected INTERPRETATION There was no evidence of RPN1::MECOM fusion due to 3q21/3q26.2 inversion or translocation, deletion 5q31, monosomy 7, deletion 7q31, RUNX1::UPJF6C9 fusion due to translocation (8;21)(q21.3;q22), 11p15 (NUP98) [...] represent benign/regenerative myeloblasts. Electronically signed Radiology Results XR ABD OBSTRUCTION SERIES 2VW Result Date: 10/02/2023 IMPRESSION: Paucity of bowel gas. No pneumoperitoneum. Report dictated by Haleigh Mosquera MD (assistant professor of radiology). I, Fabien Yin DO have personally reviewed and interpreted this examination/study. > Interpreting Provider: Fabien Yin DO on 10/02/2023 9:26 AM FL LUMBAR PUNCT FOR CHEMO INJ Result Date: 10/01/2023 IMPRESSION: 1. Successful lumbar puncture under fluoroscopic guidance at level L4-5. 2. Successful injection of intrathecal chemotherapeutic agent. Report dictated by Sivakumar Garrido DO (Video Arcade Manager). Attending Physician: Dr. Augustine Davison Cvt Rn: Dr. Sivakumar Garrido DO (Video Arcade Manager). The procedure was performed by the: The bacteriology research assistant, and the attending radiologist was present for all critical and aguirre portions of the procedure, and was immediately available to furnish services during the entire procedure. The attending radiologist performed the following procedural activities: IDr. Augustine was there and supervised aguirre portions of the procedure, not scrubbed. Augustine Bartholomew MD have personally reviewed and interpreted this examination/study. > Interpreting Provider: Augustine Davison MD on 10/01/2023 4:[address] HEAD WO CONTRAST Result Date: 10/01/2023 IMPRESSION: A tiny amount of subarachnoid hemorrhage in the right central sulcus is less conspicuous, suggesting evolution. Report dictated by Sivakumar Garrido DO (Video Arcade Manager). Romie Bartholomew MD have personally reviewed and interpreted this examination/study. > Interpreting Provider: Romie Sanchez MD on 10/01/2023 11:[address] ANGIO BRAIN AND NECK Result Date: 10/01/2023 IMPRESSION: 1.Previously described trace volume of subarachnoid hemorrhage within the right centralsulcus is not well appreciated on the current study. No evidence of acute intracranial hemorrhage on the current study. There appears to be some vascularity within the right central sulcus, likely the source of the signal seen on the prior MRI. Findings are nonspecific and could represent a variantvenous structure with slow flow. If there is clinical concern, follow-up imaging could be obtained for further evaluation. 2.Findings compatible with idiopathic intracranial hypertension, AKA pseudotumor cerebri. Clinical correlation is recommended. 3.No large arterial occlusions or significant sten oses identified in the head or neck. 4.Heterogeneous [...] verification. Report dictated by Steve Street M.D. (assistant professor of radiology) 10/01/2023 12:40 AM Augustine Bartholomew MD have personally reviewed and interpreted this examination/study. > Interpreting Provider: Augustine Davison MD on 10/01/2023 8:[address] HEAD WO CONTRAST Result Date: 09/30/2023 IMPRESSION: Redemonstration of a tiny amount of subarachnoid hemorrhage in the right central sulcus. These findings were discussed in detail with the patient's care provider, Dr. Tan by Dr. Sanchez via telephone at 4:43 PM on 09/30/2023 with readback comprehension and verification. Report dictated by Sivakumar Garrido DO (Video Arcade Manager). I, Romie Sanchez MD have personally reviewed and interpreted this examination/study. > Interpreting Provider: Romie Sanchez MD on 09/30/2023 4:43 PM ASSESSMENT Selvin Mckeon is a 38 year old female who transferred to [facility] on 09/03/2023 for suspected AML. Patient started 7 + 3 (cytarabine and idarubicin) on 09/06/2023. 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 F on 09/22 #Tachycardia #Acute respiratory failure with hypoxia, resolved -Suspected to be due to atelectasis, anemia, possible pulmonary embolism, hypophosphatemia -CT chest PE-Suboptimal evaluation of the pulmonary arteries given phase of contrast. However, within the limitations of this examination, there is suggestion of a small nonocclusive pulmonary embolus in a segmental/subsegmental right lower lobe pulmonary artery. -Duplex venous ultrasound negative for DVT -Blood cx 09/22 no growth at 5 days -CXR 09/28 with unchanged diffuse interstitial prominence, could represent pulmonary vascular congestion and/or interstitial pneumonia no pleural effusion or pneumothorax #Lbc-ainfl-nxa metabolic acidosis -Likely 2/2 Diamox #Transaminitis -Mild #Vaginal bleeding -Patient experiencing lower abdominal cramping consistent with her menstrual cramps -Reports vaginal bleeding ~1 pad/day -Medroxyprogesterone discontinued 2/2 concern for IIH -Hgb today 7.1 from 7.8 yesterday RECOMMENDATIONS -10/01 BM bx results so far showing remission (minimal residual disease testing still pending) so proceeding w/ HiDAC (high-dose cytarabine) consolidation chemo -LP 10/06 cytology with rare monocytes, no malignancy identified (no blasts) -C1D6 HiDAC consolidation. Dosing as detailed in [place] protocol will be 3 g q12 hr on days 1, 3, and 5. Daily neuro exams (particularly cerebellar) while on HiDAC. -Patient with vaginal bleeding and menstrual cramps. Recommend transfusing 1 unit pRBCs prior to discharge. Will continue to monitor Hgb outpatient and consider restarting medroxyprogesterone if Hgb drops below 7. -Diamox 500 mg BID, monitor VBG -Appreciate neuro, NSGY, ophtho, and rad onc input -Continue Valtrex for OI ppx and now on Decadron eye drops for conjunctivitis ppx while on high-dose cytarabine -Daily CBC w/diff, CMP -Daily weights -Transfusion parameters: (Leukoreduced and irradiated blood products)pRBC to keep Hgb >7 if hemodynamically stable and no bleeding. PLT transfusion to keep PLT >50K at this time due to (small) SAH and no upcoming NSGY intervention planned. PLT~100K is adequate for neurosurgical interventions.Fibrinogen > 100 -PRN anti-emetics -Would not recommend anticoagulation given low suspicion for PE, diagnostic imaging nonconclusive. Additionally she has thrombocytopenia. -Dr. Carias will be primary Summary of discharge plans w/ tentative discharge date, 10/09: -We are scheduling her for a H/O clinic appt w/ us on Fri (10/13) w/ labs (CBC w/ diff and CMP) 3x weekly. -Heme/onc discharge meds will be Decadron eye drops 0.1% 2 drops QID both eyes through 10/11, posaconazole 300 mg twice daily for 2 doses followed by 300 mg once daily, Valtrex 500 mg BID, and Levaquin 500 mg qday (ideally delivered to the bedside prior to discharge). Thank you for the opportunity to participate in the care of this patient. Please don't hesitate to contact heme/onc consult fellow via the warping mill operator or AMION if any clarifications needed or any questions. Plan was discussed with hematology/oncology attending. Linnette Antonio MS4 Hematology/Oncology Consult Service 10/09/2023 7:[address] REPRESENTATIVE Associated attestation - Jose Martin Lebron MD - 10/10/2023 8:34 AM ARTIST REPRESENTATIVE Attending Physician Supervisory Note 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 ([facility]-HCC) 09/03/2023 Initial Diagnosis 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 ([facility]-HCC) 09/06/2023 - Chemotherapy cytarabine (Cytosar) [...] (10/04/2023), 6,700 mg (10/04/2023), 6,700 mg (10/06/2023) 10/03/2023 Adverse Reaction Leukemic infiltrate vs IIH as a cause of increased ICP will treat empirically with stable to improving disc edema on exam-- to prevent vision loss. I personally interviewed and examined the patient and agree with the doctor above. Jose Martin Lebron MD * Dano Jean MD - 10/08/2023 6:56 PM CST Images from the original note were not included. 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 She reports floaters in the right eye but denies vision loss, flashes, or veil OU. She denies pain, redness OU. Interval history: States vision is stable, floaters are unchanged, no flashes, no dark curtains. Denies eye pain. Review of Systems Positives in bold - General: fevers, night sweats, weight loss - Neuro: headache, weakness/numbness/tingling, hearingloss, cognitive changes - ENT: oral ulcers, sinusitis, ear/nose deformities - Skin: rashes, poliosis, madarosis, vitiligo, erythema nodosum - Pulm: SOB/THOMPSON, cough, hemoptysis - Cardiac: chest pain, pa lpitations - GI: diarrhea, ulcers - : genital lesions, discharge, blood in urine - MSK: arthralgias, low back pain Other ROS negative beyond pertinent positives and negatives in HPI Past Medical/Surgical History Past Medical History: Diagnosis Date ??? NEGATIVE PAST MEDICAL HISTORY - SEE PROBLEM LIST Past ocular history: denies eye surgery, laser procedures, vision correction. Denies history of strabismus. Past Family History [] blindness [] glaucoma [] Other (please list) Family History Family history unknown: Yes Social History Noncontributory Allergies No Known Allergies Objective Base Eye Exam Visual Acuity (Snellen - Linear) Right Left Near sc 20/20 20/20 Tonometry (Palpation, 4:58 PM) Right Left Pressure Soft Soft Patient deferred IOP check Pupils Dark Light Shape React APD Right 5 3 Round Brisk None Left 5 3 Round Brisk None Visual Hurt Left Right Full Full Extraocular Movement Right Left 0 0 0 0 0 0 0 0 0 0 0 0 0 0 0 0 Neuro/Psych Oriented x3: Yes Mood/Affect: Normal Dilation Both eyes: 1.0% Mydriacyl, 1.0% Cyclogyl @ 4:59 PM Additional Tests Color Right Left Ishihara /16 1616 Slit Lamp and Fundus Exam External Exam Right Left External Normal Normal Slit Lamp Exam Right Left Lids/Lashes Normal Normal Conjunctiva/Sclera White and quiet White and quiet Cornea Clear Clear Anterior Chamber Deep and quiet Deep and quiet Iris Round and reactive Round and reactive Lens Clear Clear Vitreous PVD Normal Fundus Exam Right Left Disc Grade 1 Disc edema vs infiltrate with peripapillary hemorrhages Resolving Disc edema only nasal Macula Small white retinal lesions, that are resolving Small white retinal lesion, nearly resolved Vessels dilated and tortuous dilated and tortuous Periphery subILM heme, preretinal and intraretinal hemorrhages, inferotemporal [place] spot preretinaland intraretinal hemorrhages HVF above OD:dissimilar pattern from prior, nasal defect spanning the horizontal midline, unreliable. Fovea: 36 db (improved), VFI: 92% (stable), MD: -5.16 (mildly worse from 4.9) OS: Smaller ST field defects, no longer involving the central vision. More reliable. Fovea: 36 (improved), VFI: 91% (improved), MD-5.0 from -4.6 RNFL: 180->175, 257->165 (with heavy segmentation error today and previous OCT). Assessment/Plan Selvin Mckeon is a 38 year old femaleconsulted for new onset floaters OD. Elevated ICP Resolving papilledema Elevated discs OU with worsening today from [...] empirically with improving disc edema on exam ? 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 Possible infectious etiology. ?? Recommendations: - Continue acetazolamide to 500 mg BID if cleared by primary team - Ophthalmology will continue to follow - FOLLOW-UP PLAN: Call prior to discharging pt for follow-up. Pt should not be discharged prior to ophthalmology arranging follow-up. Seen independently by me. Dano Jean MD Ophthalmology Resident 10/08/2023 7:[address] REPRESENTATIVE * Marycarmen Gil - 10/08/2023 4:47 PM CST MEDICATION TO BEDSIDE DELIVERY: COMPLETE Medication to Bedside delivery was completed for Selvin Mckeon. ??? A total of 3 prescriptions were delivered to the patient for discharge. ??? Medications were given to PATIENT (SELVIN (CHANDU, RN AWARE)) ??? This delivery included a controlled substance: NO ??? This delivery included medication that should be stored in the fridge: NO Thank you for allowing the outpatient pharmacy to participate in the care of Selvin Mckeon. If you have any questions, please contact the outpatient pharmacy at [phone]. [facility] at [facility] [address] [place], [place] [address] Hours of Operation Friday - Friday: 8:00am to 6:00pm Friday: 9:00am to 1:00pm Epic: [facility] *Ensure the patient and clinic's nearby ZIP codes box is unchecked* ST REPRESENTATIVE * Gaurav Moyer - 10/08/2023 3:01 PM CST Music Therapy Progress Note Start Time: 1400 End Time: 1430 Music Therapy Goals: Increase relaxation and Increase meaningful social interaction Intervention Provided: Provide familiar / significant music and Provide opportunities for social interaction Therapy Type: Individual Therapy Patient Response: Appropriate Affect: Mood, appropriate Treatment Modality: Music Therapy Music Therapist Gaurav Moyer and medical students visited patient in [facility] room. Patient was observed sitting up in chair, alert and oriented. During interventions, Patient sang, mouthed familiar lyrics, smiled, and moved in time with the music. Patient engaged in emotional processing after each intervention. At conclusion of session, no nonverbal indicators of distress observed. ERLINDA Philip, MT-BC 10/08/2023 3:[address] REPRESENTATIVE * Tiana Burciaga DO - 10/08/2023 2:50 PM CST Ms. 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 Summary of discharge plans w/ tentative discharge date of tmrw, 10/09: -We are scheduling her for a H/O clinic appt w/ us on Mon (10/13) w/ labs (CBC w/ diff and CMP) 3x weekly. -Heme/onc discharge meds will be Decadron eye drops 0.1% 2 drops QID both eyes through 10/11, posaconazole 300 mg twice daily for 2 doses followed by 300 mg once daily, Valtrex 500 mg BID, and Levaquin 500 mg qday, Pepcid 20 mg BID, Zofran 8 mg BID PRN N/V, and Compazine 10 mg q6 hrs PRN N/V (ideally delivered to the bedside prior to discharge). Thank you for the opportunity to participate in the care of this patient. Please don't hesitate to contact heme/onc consult fellow via the warping mill operator or AMION if any clarifications needed or any questions. Plan was discussed with hematology/oncology attending. Tiana Burciaga DO, PGY-4 Hematology/Oncology Fellow [facility] ST REPRESENTATIVE * Chandu Padgett RN - 10/08/2023 1:40 PM CST Problem: Infection Goal: Signs and symptoms of infections are decreased or avoided Outcome: Progressing Problem: Pain/Discomfort Goal: Patient exhibits reduced pain/discomfort as evidenced by pain scores Outcome: Progressing Problem: Fall Risk Goal: Fall risk and fall related injury risk are minimized (interventions related to the fall risk can be found in the flowsheet documentation) Outcome: Progressing * French Nvooa MD - 10/08/2023 11:29 AM CST [facility] Medicine Daily Progress Note Name: Selvin Mckeon Age: [age] year old Room: 721/01 Date Admitted: 09/03/2023 Hospital Course: Selvin Mckeon is a 38 year old female with no significant past medical history who presented on 09/03 with fatigue and flu-like symptoms. 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 Hospital course c/b persistent tachycardia, neutropenic fever, and hypoxia. Hospital course also c/b leukemic infiltrates on fundoscopic exam per Ophthalmology. An MRI was obtained which showeda small SAH, for which NSGY was consulted. After reviewing of CTH and CTA, NSGY determined that no acute surgical intervention was required and recommended OP f/u. Pt also received a Lumbar puncture with intrathecal Cytarabine for concern for leukemic infiltrates around eye. 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 Pt also required HiDAC Cytarabine inpatient for consolidation therapy. Neurology was also consulted for concern for elevated ICP given CT imaging and recommended a repeat LP with opening pressure and agreed with acetaz hamilton. Acetazolamide dropped bicarb so it was held. Repeat LP for IT chemo 10/06 showing open pressure 30 ccH2O. Resumed aceatolamide Interval History: NAEO Afebrile, VSS Started menstrual cycle having vaginal bleeding CO2 on bmp better on acetazolamide Objective: Patient Vitals for the past 6 hrs: Temp Pulse Resp BP BP Method 10/08/23 0738 98.5 ??F (36.9 ??C) 98 18 117/78 Automatic Estimated body mass index is 44.3 kg/m?? as calculated from the following: Height as of this encounter: 1.575 m (5' 2 ). Weight as of this encounter: 109.9 kg (242 lb 3.2 oz). O: Gen: well nourished female NAD HEENT: NCAT, EOMI, MMM CV: RRR no MRG Resp: CTAB ABD: soft, nontender Ext: trace LE edema Labs: Recent Labs Component Name 10/07/23203009/14/23214909/13/232051 WBC 3.7* - 0.5* HGB 7.8* - 7.4* HCT 22.0* - 20.0* NA 142 - 138 CL 112* - 108* BUN 18 - 10 CREATININE 0.79 - 0.66 PHOS 3.2 - - CALCIUM 9.3 - 8.4 PT - - 13.1 INR - - 1.0 AST 54* - 15 ALT 101* - 40 ALKPHOS 66 - 55 TBILI 0.8 - 0.5 - = values in this interval not displayed. Microbiology: Microbiology Results (Displays last 21 days for this encounter ONLY) Procedure Component Value - Date/Time CULTURE CSF+GRAM STAIN [[id number]] (Normal) Collected: 10/06/23 1524 Lab Status: Preliminary result Specimen: Cerebral spinal fluid from CSF Tube 1 Updated: 10/08/23 0717 Culture No growth Gram Stain No polymorphonuclear cells No organisms seen MENINGITIS/ENCEPHALITIS PANEL CSF [[id number]] (Normal) Collected: 10/06/23 1524 Lab Status: Final result Specimen: Microbiology from CSF Updated: 10/06/23 2103 Escherichia coli K1 Not detected Haemophilus influenzae Not detected Listeria monocytogenes Not detected Neisseria meningitis Not detected Streptococcus agalactiae (Group B) Not detected Streptococcus pneumoniae Not detected Cytomegalovirus Not detected Enterovirus Not detected Herpes simplex Virus 1 Not detected Herpes simplex Virus 2 Not detected Human Herpesvirus 6 Not detected Human Parechovirus Not detected Varicella zoster Virus Not detected Cryptococcus neoformans/gattii Not detected Narrative: Meningitis/Encephalitis PCR CSF Panel performed by [employer] Film[employer] multiplex PCR. A negative FilmArray ME Panel result does not exclude the possibility of ENVIRONMENTAL LABORATORY TECHNICIAN infection and should not be used as the sole basis for diagnosis, treatment, or other management decisions. The FilmArray ME Panel is intended to be used in conjunction with the standard of care CSF Gram stain and culture for organism recovery and is not a substitute for these tests. Test results should be interpreted inthe context of patient presentation and other laboratory information. CULTURE BLOOD [[id number]] (Normal) Collected: 09/22/231823 Lab Status: Final result Specimen: Blood Peripheral Updated: 09/27/23 2330 Culture No growth day 5 MRSA DNA PCR [[id number]] (Normal) Collected: 09/22/23 182 Lab Status: Final result Specimen: Microbiology from Nasal Updated: 09/23/23 0036 MRSA DNA by PCR Not detected Narrative: Methicillin-resistant Staphylococcus aureus (MRSA) DNA is not detected (presumed not colonized withMRSA). RESPIRATORY PANEL WITH SARS-COV-2 BY PCR (STL) [[id number]] (Normal) Collected: 09/22/23 182 Lab Status: Final result Specimen: Microbiology from Nasopharyngeal Updated: 09/23/23 0028 Adenovirus PCR Not detected Coronavirus 229E PCR [...] authorization via the [employer]. Imaging: CXR 09/26 reviewed TTE Left??Ventricle: Left ventricle size is normal. EDV Index BP is 47.8 mL/m2. ESV Index BP is 13.8 mL/m2. Normal wall thickness. LVPWd is 1.01 cm. Ventricular mass is normal. Mass index 2D is 71.08 g/m2. Normal systolic function with a visually estimated EF of 70 - 75%. EF by 2D Brian biplane is 71%. Normal wall motion. Septal motion is normal. ??? Right Ventricle: Right ventricle size is normal. Normal free wall thickness. Normal wall motion. Normal systolic function. TAPSE is 2.071 cm. Fractional area change (FAC) is 54.89%. ??? Left Atrium: Left atrium size is normal. Left atrium volume index is 20.0 mL/m2. ??? Right Atrium: Right atrium size is normal. RA volume index is 17.77 mL/m2. ??? No pericardial effusion. ??? Aorta: Normal sized annulus, sinus of Valsalva (aortic root) and ascending aorta. Sinotubular junction indexed to BSA is 1.11 cm/m2. Sinus of Valsalva indexed to BSA is 1.18 cm/m2. ?? Normal echocardiogram by 2D echocardiography. 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 (CMS-HCC) (POA: Yes) Pancytopenia (CMS-HCC) (POA: Yes) Tonsillitis (POA: Yes) Acute hypoxic respiratory failure (CMS-HCC) (POA: No) Pulmonary edema (POA: No) Febrile neutropenia (CMS-HCC) (POA: No) # AML c/b pancytopenia and febrile neutropenia - BMBx at [place] with 78% blasts, final report with 90% blast consistent with AML Day 14 BMBx without evidence of residual AML - medroxyprogesterone d/abbie - HiDAC consolidation started PLAN - monitor daily labs, transfuse plt >50 (given known SDH), Hgb <7; both leukoreduced and irradiated products - continue Valtrex for OI prophylaxis and decadron eye drops # menstrual blood loss - medroxyprogesterone held due to IIH - monitor CBC, may need to give back if significant blood loss - hold heparin # IIH - increased opening pressure on LP to 30 mmH2O 10/06 - MRV negative for dural venous thrombosis. Also showed nonspecific findings but compatible with IIH given clinical correlation - rad onc consulted for radiation therapy - Neurology consulted - Ophthalmology following - previously did not tolerate acetazolamide due to acidosis, mercedes again when holding PLAN - aceatazolamide 500 mg BID, f/u CO2 with VBG tomorrow - other options are topiramate and TUMBLER MACHINE OPERATOR HELPER shunt but both of these are suboptimal # Small volume SAH in right central sulcus - NSGY consulted. Will f/u with pt in clinic w/ in 4-6 weeks w/ CTH non con for imaging. # Acute respiratory failure with hypoxia, resolved # Sinus tachycardia, resolved - holding anticoagulation given elevated risk in setting of thrombocytopenia, once platelets recover will need reevaluation for need of AC vs repeat CT PE - repeat TTE with normal RV, continue telemetry # Back pain, improved -Ctm # Tonsillitis, resolved - status post course of augmentin FEN: Electrolytes replaced with goal of K>4, Phos>3, Mag>2. Diet: Regular PPx: scd Disposition: Inpatient Code Status: Full French Novoa MD ST REPRESENTATIVE * StrawnLinnette - 10/08/2023 7:34 AM CST HEMATOLOGY/ONCOLOGY INPATIENT PROGRESS NOTE Name: Selvin Mckeon Age: [age] year old Date of : 1985 Date of Service: 10/08/2023 HEMATOLOGY & ONCOLOGY HISTORY Principal Diagnosis: AML, NPM-1 mut, fav risk Current Therapy: 7 + 3 (cytarabine and idarubicin) Prior Hematology/Oncology History: 09/02/2023: Bone marrow biopsy at [facility] which revealed 78% blasts likely AML. 09/03/2023: Patient transferred to [facility] for further care and evaluation. SUBJECTIVE History of Present Illness Chief Complaint: Concern for AML HPI on Initial Consult: Selvin Mckeon is a 38 year old female with no PMH who presented to [facility] presenting with fevers and flu like symptoms, initially thought to have tonsillitis seen on CT face?. Was treated with vanc cefepime and then CTX but had persistent pancytopenia so bone marrow biopsy was done whichshowed 78% blast on the bone marrow flow cytometry. Pt was transferred for concern for AML Formal bone marrow report still pending from [facility] - Lives alone with daughter ( 11 y old) who is currently staying with her dad No PMH of cancers , is adopted so not sure about FH No drugs or smoking or alcohol use Interval History: No acute events overnight. Patient afebrile and hemodynamically stable. No overnight transfusion requirements. Acetazolamide 500 mg BID restarted yesterday. This AM, patient resting in bed feeling tired. She reports lower abdominal cramping consistent with her usual menstrual cramping and vaginal bl eeding ~1 pad/day. She denies fever, chills, chest pain, SOB, or increased leg swelling. Continuingconsolidation chemo today as below. Review of Systems: As noted in HPI. Past Medical & Surgical History Patient Active Problem List Diagnosis ??? Acute hypoxic respiratory failure (CMS-HCC) ??? Pulmonary edema ??? Febrile neutropenia (CMS-HCC) ??? Pancytopenia (CMS-HCC) ??? Tonsillitis ??? 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 NEGATIVE PAST MEDICAL HISTORY - SEE PROBLEM LIST Past Surgical History: Procedure Laterality Date ??? Section ??? Cholecystectomy ??? KIDNEY STONES, REMOVAL Past Oncology History Cancer Staging No matching staging information was found for the patient. 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 (CMS-HCC) 09/03/2023 Initial Diagnosis Acute leukemia [...] (10/04/2023), 6,700 mg (10/04/2023), 6,700 mg (10/06/2023) Active Treatment Days for Selvin Mckeon (until 10/09/2023) 10/07/2023 ONCOLOGY TREATMENT: IP AML CONSOLIDATION - AGE <60 (HIGH DOSE CYTARABINE)(S[facility] HIDAC) Day 5, Cycle 1 (Started) Pre-Medications: ondansetron (Zofran) injection 8 mg, dexAMETHasone (Decadron) injection 8 mg Chemotherapy: cytarabine (Cytosar) 6,700 mg in 0.9% NaCl IV 597 mL infusion Social History Social History Tobacco Use ??? Smoking status: Former Packs/day: 1 Types: Cigarettes Start date: 2004 Quit date: 2010 Years since quittin.0 ??? Smokeless tobacco: Never Substance Use Topics ??? Alcohol use: Yes Comment: occasional Family History Family History Family history unknown: Yes Medications SCHEDULED MEDICATIONS: 0.9% NaCl injection 3 mL, Intracatheter, q8h acetaZOLAMIDE (Diamox) tablet 500 mg, Oral, BID cytarabine (Cytosar) 6,700 mg in 0.9% NaCl IV 597 mL infusion, Intravenous, q12h dexAMETHasone (Decadron) 0.1 % ophthalmic suspension 2 drop, Each Eye, 4X/DAY dexAMETHasone (Decadron) injection 8 mg, Intravenous, Once famotidine (Pepcid) tablet 20 mg, Oral, BID heparin injection 7,500 Units, Subcutaneous, q8h ondansetron (Zofran) injection 8 mg, Intravenous, q12h perflutren lipid microsphere (Definity) injection 0.5 mL, Intravenous, intra- Procedure multiple valACYclovir (Valtrex) tablet 500 mg, Oral, BID CONTINUOUS MEDICATIONS: PRN MEDICATIONS: Or Or 0.9% NaCl injection 1-10 mL, Intracatheter, PRN acetaminophen (Tylenol) tablet 650 mg, Oral, q6h PRN ALPRAZolam (Xanax) tablet 0.25 mg, Oral, BID PRN dextrose 10 % IV bolus, Intravenous, PRN dextrose 10 % IV bolus, Intravenous, PRN dicyclomine (Bentyl) tablet 20 mg, Oral, TID PRN docusate sodium (Colace) solution 50 mg, Oral, AT BEDTIME PRN glucagon (Glucagen) injection 1 mg, Subcutaneous, PRN glucose (Diabetic Use) oral gel, Oral, PRN guaiFENesin (Robitussin) solution 10 mL, Oral, q6h PRN heparin lock flush injection 500 Units, Intracatheter, PRN melatonin tablet 3 mg, Oral, AT BEDTIME PRN ondansetron (disintegrating) (Zofran ODT) tablet 8 mg, Oral, BID PRN ondansetron (Zofran) injection 8 mg, Intravenous, BID PRN oxyCODONE (immediate release) (Roxicodone) tablet 5 mg, Oral, q6h PRN prochlorperazine (Compazine) injection 5 mg, Intravenous, q6h PRN prochlorperazine (Compazine) tablet 10 mg, Oral, q4h PRN simethicone (Mylicon) chew tablet 80 mg, Oral, 4X/day PRN Allergies No Known Allergies OBJECTIVE Physical Exam Vitals: 10/07/23 1614 10/07/23 2100 10/08/23 0025 10/08/23 0421 BP: 124/85 112/68 114/67 92/58 Pulse: 101 94 101 106 Resp: 18 18 18 18 Temp: 97.7 ??F (36.5 ??C) 97.9 ??F (36.6 ??C) 98.2 ??F (36.8 ??C) 97.9 ??F (36.6 ??C) SpO2: 99% 93% 100% 98% Weight: Height: Wt Readings from Last 3 Encounters: 10/07/23 109.9 kg (242 lb 3.2 oz) ECO Gen: Resting comfortably in bed CV: RRR Resp: Symmetric chest rise bilaterally Abd: Soft, nontender, nondistended Ext: Trace pitting edema Neuro: Ambulates without assistance Psych: Appropriate mood and affect Laboratory Results Recent Labs Component Name 10/07/23203010/06/23204010/05/232050 WBC 3.7* 2.5* 3.8* RBC 2.48* 2.43* 2.34* HGB 7.8* 7.5* 7.2* HCT 22.0* 21.5* 20.9* MCV 88.7 88.5 89.3 MCHC 35.5 34.9 34.4 PLTCOUNT 104* 125* 163 NEUTPCT - 88.4* 71.1 LYMPHPCT - 8.4* 12.7* NEUTABS 3.23 3.22 2.21 2.21 2.68 2.68 LYMPHABS 0.44* 0.21* 0.48* BASOABS - 0.00 0.00 Recent Labs Component Name 10/07/23203010/06/23204010/05/232050 POTASSIUM 3.4* 4.1 3.8 CO2 19* 18* 14* BUN 18 13 13 CREATININE 0.79 0.64 0.68 EGFR >90 >90 >90 GLUCOSE 139* 152* 139* CALCIUM 9.3 9.1 9.1 MAGNESIUM 2.3 2.3 2.2 PHOS 3.2 3.2 3.1 ALT 101* 82* 75* AST 54* 54* 57* ALKPHOS 66 64 63 Pathology Results RESULT Normal FISH Result inv(3) or t(3;3) RPN1::MECOM Fusion: not detected Deletion 5q: not detected Monosomy 7: not detected Deletion 7q: not detected t(8;21) RUNX1::[id number] Fusion: not detected 11p15 (NUP98) Rearrangement: not detected 11q23 (KMT2A) Rearrangement: not detected inv(16) or t(16;16) CBFB::MYH11 Fusion: not detected INTERPRETATION There was no evidence of RPN1::MECOM fusion due to 3q21/3q26.2 inversion or translocation, deletion 5q31, monosomy 7, deletion 7q31, RUNX1::[id number] fusion due to translocation (8;21)(q21.3;q22), 11p15 (NUP98) [...] represent benign/regenerative myeloblasts. Electronically signed Radiology Results XR ABD OBSTRUCTION SERIES 2VW Result Date: 10/02/2023 IMPRESSION: Paucity of bowel gas. No pneumoperitoneum. Report dictated by Haleigh Mosquera MD (assistant professor of radiology). Fabien Bartholomew DO have personally reviewed and interpreted this examination/study. > Interpreting Provider: Fabien Yin DO on 10/02/2023 9:26 AM FL LUMBAR PUNCT FOR CHEMO INJ Result Date: 10/01/2023 IMPRESSION: 1. Successful lumbar puncture under fluoroscopic guidance at level L4-5. 2. Successful injection of intrathecal chemotherapeutic agent. Report dictated by Sivakumar Garrido DO (Video Arcade Manager). Attending Physician: Dr. Augustine Davison Cvt Rn: Dr. Sivakumar Garrido DO (Video Arcade Manager). The procedure was performed by the: The bacteriology research assistant, and the attending radiologist was present for all critical and aguirre portions of the procedure, and was immediately available to furnish services during the entire procedure. The attending radiologist performed the following procedural activities: Dr. Augustine Bartholomew was there and supervised aguirre portions of the procedure, not scrubbed. Augustine Bartholomew MD have personally reviewed and interpreted this examination/study. > Interpreting Provider: Augustine Davison MD on 10/01/2023 4:[address] HEAD WO CONTRAST Result Date: 10/01/2023 IMPRESSION: A tiny amount of subarachnoid hemorrhage in the right central sulcus is less conspicuous, suggesting evolution. Report dictated by Sivakumar Garrido DO (Video Arcade Manager). Romie Bartholomew MD have personally reviewed and interpreted this examination/study. > Interpreting Provider: Romie Sanchez MD on 10/01/2023 11:[address] ANGIO BRAIN AND NECK Result Date: 10/01/2023 IMPRESSION: 1.Previously described trace volume of subarachnoid hemorrhage within the right centralsulcus is not well appreciated on the current study. No evidence of acute intracranial hemorrhage on the current study. There appears to be some vascularity within the right central sulcus, likely the source of the signal seen on the prior MRI. Findings are nonspecific and could represent a variantvenous structure with slow flow. If there is clinical concern, follow-up imaging could be obtained for further evaluation. 2.Findings compatible with idiopathic intracranial hypertension, AKA pseudotumor cerebri. Clinical correlation is recommended. 3.No large arterial occlusions or significant sten oses identified in the head or neck. 4.Heterogeneous [...] verification. Report dictated by Steve Street M.D. (assistant professor of radiology) 10/01/2023 12:40 AM Augustine Bartholomew MD have personally reviewed and interpreted this examination/study. > Interpreting Provider: Augustine Davison MD on 10/01/2023 8:[address] HEAD WO CONTRAST Result Date: 09/30/2023 IMPRESSION: Redemonstration of a tiny amount of subarachnoid hemorrhage in the right central sulcus. These findings were discussed in detail with the patient's care provider, Dr. Tan by Dr. Sanchez via telephone at 4:43 PM on 09/30/2023 with readback comprehension and verification. Report dictated by Sivakumar Garrido DO (Video Arcade Manager). I, Romie Sanchez MD have personally reviewed and interpreted this examination/study. > Interpreting Provider: Romie Sanchez MD on 09/30/2023 4:43 PM ASSESSMENT Selvin Mckeon is a 38 year old female who transferred to [facility] on 09/03/2023 for suspected AML. Patient started 7 + 3 (cytarabine and idarubicin) on 09/06/2023. 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 F on 09/22 #Tachycardia #Acute respiratory failure with hypoxia, resolved -Suspected to be due to atelectasis, anemia, possible pulmonary embolism, hypophosphatemia -CT chest PE-Suboptimal evaluation of the pulmonary arteries given phase of contrast. However, within the limitations of this examination, there is suggestion of a small nonocclusive pulmonary embolus in a segmental/subsegmental right lower lobe pulmonary artery. -Duplex venous ultrasound negative for DVT -Blood cx 09/22 no growth at 5 days -CXR 09/28 with unchanged diffuse interstitial prominence, could represent pulmonary vascular congestion and/or interstitial pneumonia no pleural effusion or pneumothorax #Dbl-[id number]-jam metabolic acidosis -Likely 2/2 Diamox #Transaminitis -Mild #Vaginal bleeding -Patient experiencing lower abdominal cramping consistent with her menstrual cramps -Reports vaginal bleeding ~1 pad/day -Medroxyprogesterone discontinued 2/2 concern for IIH -Hgb today 7.8 RECOMMENDATIONS -10/01 BM bx results so far showing remission (minimal residual disease testing still pending) so proceeding w/ HiDAC (high-dose cytarabine) consolidation chemo -C1D5 HiDAC consolidation. Dosing as detailed in [place] protocol will be 3 g q12 hr on days 1, 3, and 5. Daily neuro exams (particularly cerebellar) while on HiDAC. -Follow-up LP cytology 10/06. Previous LP cytology showed no leukemia involvement. -Patient with vaginal bleeding and menstrual cramps. Continue to monitor Hgb and consider restarting medroxyprogesterone if Hgb drops below 7. -Diamox 500 mg BID restarted yesterday, monitor VBG -Appreciate neuro, NSGY, ophtho, and rad onc input -Continue Valtrex for OI ppx and now on Decadron eye drops for conjunctivitis ppx while on high-dose cytarabine -Daily CBC w/diff, CMP -Daily weights -Transfusion parameters: (Leukoreduced and irradiated blood products)pRBC to keep Hgb >7 if hemodynamically stable and no bleeding. PLT transfusion to keep PLT >50K at this time due to (small) SAH and no upcoming NSGY intervention planned. PLT~100K is adequate for neurosurgical interventions.Fibrinogen > 100 -PRN anti-emetics -Would not recommend anticoagulation given low suspicion for PE, diagnostic imaging nonconclusive. Additionally she has thrombocytopenia. -Dr. Carias will be primary- patient will need outpatient follow up scheduled prior to discharge. Thank you for the opportunity to participate in the care of this patient. Please don't hesitate to contact heme/onc consult fellow via the warping mill operator or AMION if any clarifications needed or any questions. Plan was discussed with hematology/oncology attending. Linnette Antonio MS4 Hematology/Oncology Consult Service 10/08/2023 7:[address] REPRESENTATIVE Associated attestation - Jose Martin Lebron MD - 10/08/2023 3:25 PM ARTIST REPRESENTATIVE Attending Physician Supervisory Note 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 (CMS-HCC) 09/03/2023 Initial Diagnosis Acute leukemia [...] (10/04/2023), 6,700 mg (10/04/2023), 6,700 mg (10/06/2023) I personally interviewed and examined the patient and agree with the doctor above. Jose Martin Lebron MD * French Novoa MD - 10/07/2023 3:00 PM CST [facility] Medicine Daily Progress Note Name: Selvin Mckeon Age: [age] year old Room: 721/01 Date Admitted: 09/03/2023 Hospital Course: Selvin Mckeon is a 38 year old female with no significant past medical history who presented on 09/03 with fatigue and flu-like symptoms. 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 Hospital course c/b persistent tachycardia, neutropenic fever, and hypoxia. Hospital course also c/b leukemic infiltrates on fundoscopic exam per Ophthalmology. An MRI was obtained which showeda small SAH, for which NSGY was consulted. After reviewing of CTH and CTA, NSGY determined that no acute surgical intervention was required and recommended OP f/u. Pt also received a Lumbar puncture with intrathecal Cytarabine for concern for leukemic infiltrates around eye. 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 Pt also required HiDAC Cytarabine inpatient for consolidation therapy. Neurology was also consulted for concern for elevated ICP given CT imaging and recommended a repeat LP with opening pressure and agreed with acetaz hamilton. Acetazolamide dropped bicarb so it was held. Repeat LP for IT chemo 10/06 showing open pressure 30 ccH2O. Resumed aceatolamide Interval History: NAEO Yesterday LP showed opening pressure 30 mm H2O, given near-normalization of CO2 acetazolamide resumed at 500 BID and will assess response Patient denies SIDHU or changes in vision Objective: No data found. Estimated body mass index is 44.3 kg/m?? as calculated from the following: Height as of this encounter: 1.575 m (5' 2 ). Weight as of this encounter: 109.9 kg (242 lb 3.2 oz). O: Gen: well nourished female NAD HEENT: NCAT, EOMI, MMM CV: RRR no MRG Resp: CTAB ABD: soft, nontender Ext: trace LE edema Labs: Recent Labs Component Name 10/06/23204009/14/23214909/13/232051 WBC 2.5* - 0.5* HGB 7.5* - 7.4* HCT 21.5* - 20.0* NA 137 - 138 CL 114* - 108* BUN 13 - 10 CREATININE 0.64 - 0.66 PHOS 3.2 - - CALCIUM 9.1 - 8.4 PT - - 13.1 INR - - 1.0 AST 54* - 15 ALT 82* - 40 ALKPHOS 64 - 55 TBILI 0.4 - 0.5 - = values in this interval not displayed. Microbiology: Microbiology Results (Displays last 21 days for this encounter ONLY) Procedure Component Value - Date/Time CULTURE CSF+GRAM STAIN [[id number]] (Normal) Collected: 10/06/23 1524 Lab Status: Preliminary result Specimen: Cerebral spinal fluid from CSF Tube 1 Updated: 10/07/23 0804 Culture No growth Gram Stain No polymorphonuclear cells No organisms seen MENINGITIS/ENCEPHALITIS PANEL CSF [[id number]] (Normal) Collected: 10/06/23 1524 Lab Status: Final result Specimen: Microbiology from CSF Updated: 10/06/23 2103 Escherichia coli K1 Not detected Haemophilus influenzae Not detected Listeria monocytogenes Not detected Neisseria meningitis Not detected Streptococcus agalactiae (Group B) Not detected Streptococcus pneumoniae Not detected Cytomegalovirus Not detected Enterovirus Not detected Herpes simplex Virus 1 Not detected Herpes simplex Virus 2 Not detected Human Herpesvirus 6 Not detected Human Parechovirus Not detected Varicella zoster Virus Not detected Cryptococcus neoformans/gattii Not detected Narrative: Meningitis/Encephalitis PCR CSF Panel performed by [employer] multiplex PCR. A negative [employer] ME Panel result does not exclude the possibility of ENVIRONMENTAL LABORATORY TECHNICIAN infection and should not be used as the sole basis for diagnosis, treatment, or other management decisions. The [employer] ME Panel is intended to be used in conjunction with the standard of care CSF Gram stain and culture for organism recovery and is not a substitute for these tests. Test results should be interpreted inthe context of patient presentation and other laboratory information. CULTURE BLOOD [[id number]] (Normal) Collected: 09/22/23 1824 Lab Status: Final result Specimen: Blood Peripheral Updated: 09/27/23 2330 Culture No growth day 5 MRSA DNA PCR [[id number]] (Normal) Collected: 09/22/23 1822 Lab Status: Final result Specimen: Microbiology from Nasal Updated: 09/23/23 0036 MRSA DNA by PCR Not detected Narrative: Methicillin-resistant Staphylococcus aureus (MRSA) DNA is not detected (presumed not colonized withMRSA). RESPIRATORY PANEL WITH SARS-COV-2 BY PCR ([facility]) [[id number]] (Normal) Collected: 09/22/23 1821 Lab Status: Final result Specimen: Microbiology from Nasopharyngeal Updated: 09/23/23 0028 Adenovirus PCR Not detected Coronavirus 229E PCR [...] authorization via the [employer]. Imaging: CXR 09/26 reviewed TTE Left??Ventricle: Left ventricle size is normal. EDV Index BP is 47.8 mL/m2. ESV Index BP is 13.8 mL/m2. Normal wall thickness. LVPWd is 1.01 cm. Ventricular mass is normal. Mass index 2D is 71.08 g/m2. Normal systolic function with a visually estimated EF of 70 - 75%. EF by 2D Brian biplane is 71%. Normal wall motion. Septal motion is normal. ??? Right Ventricle: Right ventricle size is normal. Normal free wall thickness. Normal wall motion. Normal systolic function. TAPSE is 2.071 cm. Fractional area change (FAC) is 54.89%. ??? Left Atrium: Left atrium size is normal. Left atrium volume index is 20.0 mL/m2. ??? Right Atrium: Right atrium size is normal. RA volume index is 17.77 mL/m2. ??? No pericardial effusion. ??? Aorta: Normal sized annulus, sinus of Valsalva (aortic root) and ascending aorta. Sinotubular junction indexed to BSA is 1.11 cm/m2. Sinus of Valsalva indexed to BSA is 1.18 cm/m2. ?? Normal echocardiogram by 2D echocardiography. 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 (CMS-HCC) (POA: Yes) Pancytopenia (CMS-HCC) (POA: Yes) Tonsillitis (POA: Yes) Acute hypoxic respiratory failure (CMS-HCC) (POA: No) Pulmonary edema (POA: No) Febrile neutropenia (CMS-HCC) (POA: No) # AML c/b pancytopenia and febrile neutropenia - BMBx at [place] with 78% blasts, final report with 90% blast consistent with AML Day 14 BMBx without evidence of residual AML - medroxyprogesterone d/abbie - HiDAC consolidation started PLAN - monitor daily labs, transfuse plt >50 (given known SDH), Hgb <7; both leukoreduced and irradiated products - continue Valtrex for OI prophylaxis and decadron eye drops # IIH - increased opening pressure on LP to 30 mmH2O 10/06 - MRV negative for dural venous thrombosis. Also showed nonspecific findings but compatible with IIH given clinical correlation - rad onc consulted for radiation therapy - Neurology consulted - Ophthalmology following - previously did not tolerate acetazolamide due to acidosis, mercedes again when holding PLAN - resume aceatazolamide 500 mg BID, f/u CO2 with VBG tomorrow, can discuss with nephrology about how much acidosis is tolerated - other options are topiramate and TUMBLER MACHINE OPERATOR HELPER shunt but both of these are suboptimal # Small volume SAH in right central sulcus - NSGY consulted. Will f/u with pt in clinic w/ in 4-6 weeks w/ CTH non con for imaging. # Acute respiratory failure with hypoxia, resolved # Sinus tachycardia, resolved - holding anticoagulation given elevated risk in setting of thrombocytopenia, once platelets recover will need reevaluation for need of AC vs repeat CT PE - repeat TTE with normal RV, continue telemetry # Back pain, improved -Ctm # Tonsillitis, resolved - status post course of augmentin FEN: Electrolytes replaced with goal of K>4, Phos>3, Mag>2. Diet: Regular PPx: sqh Disposition: Inpatient Code Status: Full French Novoa MD ST REPRESENTATIVE * Gaurav Moyer - 10/07/2023 1:39 PM CST Music Therapy Progress Note Start Time: 1015 End Time: 1055 Music Therapy Goals: Increase relaxation and Increase meaningful social interaction Intervention Provided: Provide familiar / significant music and Provide opportunities for social interaction Therapy Type: Individual Therapy Patient Response: Appropriate Affect: Mood, appropriate Treatment Modality: Music Therapy Music Therapist Gaurav Moyer and music therapy international student counselor visited patient in [facility] room. Patient was observed sitting up in chair, alert and oriented. During interventions, Patient smiled, sang, mouthed familiar lyrics, and moved in time with the music. Patient engaged in emotional processing and reminiscence after each intervention. At conclusion of session, no nonverbal indicators of distress observed. Gaurav Moyer, MMT, MT-BC 10/07/2023 1:[address] REPRESENTATIVE * Cheryl Storey RD/CANDIDO - 10/07/2023 1:30 PM CST Clinical Nutrition Assessment Brief Synopsis: Patient is at Nutrition Risk; Specific criteria can be found in assessment below Nutrition Plan: Regular Diet +Premier Protein shake from outside Recommendations to Physician: None Comments: Pt scheduled for reassessment. Note decline in PO intakes, ranging 0- 90% of meals. Pt reports ongoing fatigue, states that some of her taste is improving. Explained that yesterday meals were late (RD+pt suspects this was secondary d/t weather). Stated that she would get x2 meals so close together. Encouraged patient to contact RN to contact RD if this continues to occur. Encouraged to use microwave to help heat up food if needed. Reports that she is still consuming supplements from home. x1 stool today, RD to follow. Assessment: Med/Surg History and Clinical Diagnoses: PMH who presented to [facility] presenting with fevers and flu like symptoms, initially thought to have tonsillitis seen on CT face Height: 157.5 cm (5' 2 ) Weight: 109.9 kg (242 lb 3.2 oz) BMI: Body mass index is 44.3 kg/m??. BMI Range: Severely Obese Class 2 IBW/lb (Calculated) Female: 110, Recent Weights/Methods 09/30/2023 0406 10/01/2023 0400 10/02/2023 0332 10/03/2023 0548 10/04/2023 0533 10/05/2023 0509 10/06/2023 0528 10/07/2023 0400 Weight: 116.5 kg (256 lb 12.8 oz) 116.4 kg (256 lb 9.6 oz) 114.9 kg (253 lb 6.4 oz) 113.4 kg (250 lb 0.4 oz) 113.1 kg (249 lb 6.4 oz) 113.8 kg (250 lb 12.8 oz) 110.7 kg (244 lb 0.6 oz) 109.9 kg (242 lb 3.2 oz) Weight Method : Standing Standing -- Standing Standing -- Standing Standing Wt Comments: reviewed, net fluid loss of -11L. Diet order accuracy Current diet order: Regular Current supplement order: Fiber pkt BID Nutrition recommendation: agree with current nutrition order P.O.Intake for the past 48 hrs: % Meal Taken Av % Min: 0 % Max: 90 % Food Allergies: No known food allergies GI Concerns: Diarrhea Chewing/Swallowing: None Pain affecting intake: No Estimated Needs: KCAL: 1092-4509 (30-35kcal/kg of IBW) Protein (g): 66-77 (1.2-1.4gm/kg of IBW) Fluid (ml): 1 ml/kcal Needs based on: Kcal/kg- (Comment) (55kg of IBW) Recommended Access Route: PO Laboratory values: Recent Labs Component Name 10/06/23204010/05/23205010/04/23 2311 BUN 13 13 12 CREATININE 0.64 0.68 0.70 NA 137 142 141 POTASSIUM 4.1 3.8 4.1 CL 114* 119* 119* CO2 18* 14* 14* GLUCOSE 152* 139* 135* CALCIUM 9.1 9.1 9.2 PROT 6.7 6.6 6.8 ALB 3.2* 3.1* 3.1* TBILI 0.4 0.3 0.3 ALKPHOS 64 63 70 ALT 82* 75* 50 AST 54* 57* 33 ANIONGAP 5* 9 8 BCR 20 19 17 OSMOLALITY 287 296* 294 AGRATIO 0.9* 0.9* 0.8* EGFR >90 >90 >90 Medications: Current Facility-Administered Medications Medication ??? 0.9% NaCl injection 3 mL And ??? 0.9% NaCl injection 1-10 mL ??? acetaminophen (Tylenol) tablet 650 mg ??? acetaZOLAMIDE (Diamox) tablet 500 mg ??? ALPRAZolam (Xanax) tablet 0.25 mg ??? dexAMETHasone (Decadron) 0.1 % ophthalmic suspension 2 drop ??? dextrose 10 % IV bolus Or ??? dextrose 10 % IV bolus Or ??? glucagon (Glucagen) injection 1 mg ??? dicyclomine (Bentyl) tablet 20 mg ??? docusate sodium (Colace) solution 50 mg ??? famotidine (Pepcid) tablet 20 mg ??? glucose (Diabetic Use) oral gel ??? guaiFENesin (Robitussin) solution 10 mL ??? heparin lock flush injection 500 Units ??? melatonin tablet 3 mg ??? ondansetron (disintegrating) (Zofran ODT) tablet 8 mg ??? ondansetron (Zofran) injection 8 mg ??? oxyCODONE (immediate release) (Roxicodone) tablet 5 mg ??? perflutren lipid microsphere (Definity) injection 0.5 mL ??? prochlorperazine (Compazine) injection 5 mg ??? prochlorperazine (Compazine) tablet 10 mg ??? simethicone (Mylicon) chew tablet 80 mg ??? valACYclovir (Valtrex) tablet 500 mg Skin/Wound: None Nutrition Care Process (1) Nutrition Diagnostic Statement: Increased nutrient needs related to:: cancer as evidenced by:: estimated protein needs ..;estimated energy needs .. Nutrition Diagnostic Statement Progress: Nutrition problem continues Nutrition Intervention: Meals and snacks: Monitoring: GI, PO intake, WT, labs, medications Evaluation: Nutrition Goal: Total intake will meet estimated nutrient needs Nutrition Goal Timeframe: Throughout stay Nutrition Goal Progress: Continue with current goal Ascom [id number] ST REPRESENTATIVE * Linnette Antonio - 10/07/2023 8:34 AM CST Images from the original note were not included. 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 09/03/2023: Patient transferred to [facility] for further care and evaluation. SUBJECTIVE History of Present Illness Chief Complaint: Concern for AML HPI on Initial Consult: Selvin Mckeon is a 38 year old female with no PMH who presented to [facility] presenting with fevers and flu like symptoms, initially thought to have tonsillitis seen on CT face?. Was treated with vanc cefepime and then CTX but had persistent pancytopenia so bone marrow biopsy was done whichshowed 78% blast on the bone marrow flow cytometry. Pt was transferred for concern for AML Formal bone marrow report still pending from [facility] - Lives alone with daughter ( 11 y old) who is currently staying with her dad No PMH of cancers , is adopted so not sure about FH No drugs or smoking or alcohol use Interval History: No acute events overnight. Patient afebrile and hemodynamically stable. No overnight transfusion requirements. Patient received LP with intrathecal methotrexate yesterday. This AM, patient reports feeling tired. She reports some intermittent nausea but no vomiting. She notes the swelling in her legs has been decreasing. She denies headaches, changes in vision, chest pain, SOB, or abdominal pain. Continuing consolidation chemo today as below. Review of Systems: As noted in HPI. Past Medical & Surgical History Patient Active Problem List Diagnosis ??? Acute hypoxic respiratory failure (CMS-HCC) ??? Pulmonary edema ??? Febrile neutropenia (CMS-HCC) ??? Pancytopenia (CMS-HCC) ??? Tonsillitis ??? 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 NEGATIVE PAST MEDICAL HISTORY - SEE PROBLEM LIST Past Surgical History: Procedure Laterality Date ??? Section ??? Cholecystectomy ??? KIDNEY STONES, REMOVAL Past Oncology History Cancer Staging No matching staging information was found for the patient. 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 Smoking status: Former Packs/day: 1 Types: Cigarettes Start date: 2004 Quit date: 2010 Years since quittin.0 ??? Smokeless tobacco: Never Substance Use Topics ??? Alcohol use: Yes Comment: occasional Family History Family History Family history unknown: Yes Medications SCHEDULED MEDICATIONS: 0.9% NaCl injection 3 mL, Intracatheter, q8h acetaZOLAMIDE (Diamox) tablet 500 mg, Oral, BID dexAMETHasone (Decadron) 0.1 % ophthalmic suspension 2 drop, Each Eye, 4X/DAY famotidine (Pepcid) tablet 20 mg, Oral, BID insulin aspart (NovoLOG) pen 0-6 Units, Subcutaneous, TID WC perflutren lipid microsphere (Definity) injection 0.5 mL, Intravenous, intra- Procedure multiple valACYclovir (Valtrex) tablet 500 mg, Oral, BID [COMPLETED] cytarabine (Cytosar) 6,700 mg in 0.9% NaCl IV 597 mL infusion, Intravenous, q12h [COMPLETED] dexAMETHasone (Decadron) injection 8 mg, Intravenous, Once [COMPLETED] lidocaine (Xylocaine) 1 % injection, Subcutaneous, Once [COMPLETED] methotrexate (PF) 12 mg in 0.9% NaCl 3 mL intrathecal, Intrathecal, Once [COMPLETED] ondansetron (Zofran) injection 8 mg, Intravenous, q12h CONTINUOUS MEDICATIONS: PRN MEDICATIONS: Or Or 0.9% NaCl injection 1-10 mL, Intracatheter, PRN acetaminophen (Tylenol) tablet 650 mg, Oral, q6h PRN ALPRAZolam (Xanax) tablet 0.25 mg, Oral, BID PRN dextrose 10 % IV bolus, Intravenous, PRN dextrose 10 % IV bolus, Intravenous, PRN dicyclomine (Bentyl) tablet 20 mg, Oral, TID PRN docusate sodium (Colace) solution 50 mg, Oral, AT BEDTIME PRN glucagon (Glucagen) injection 1 mg, Subcutaneous, PRN glucose (Diabetic Use) oral gel, Oral, PRN guaiFENesin (Robitussin) solution 10 mL, Oral, q6h PRN heparin lock flush injection 500 Units, Intracatheter, PRN melatonin tablet 3 mg, Oral, AT BEDTIME PRN ondansetron (disintegrating) (Zofran ODT) tablet 8 mg, Oral, BID PRN ondansetron (Zofran) injection 8 mg, Intravenous, BID PRN oxyCODONE (immediate release) (Roxicodone) tablet 5 mg, Oral, q6h PRN prochlorperazine (Compazine) injection 5 mg, Intravenous, q6h PRN prochlorperazine (Compazine) tablet 10 mg, Oral, q4h PRN simethicone (Mylicon) chew tablet 80 mg, Oral, 4X/day PRN Allergies No Known Allergies OBJECTIVE Physical Exam Vitals: 10/07/23 0033 10/07/23 0320 10/07/23 0400 10/07/23 0747 BP: 119/81 116/77 (!) 123/100 Pulse: 87 107 (!) 112 Resp: 20 20 18 Temp: 97.8 ??F (36.6 ??C) 98.5 ??F (36.9 ??C) 98.2 ??F (36.8 ??C) SpO2: 98% 99% 99% Weight: 109.9 kg (242 lb 3.2 oz) Height: 1.575 m (5' 2 ) Wt Readings from Last 3 Encounters: 10/07/23 109.9 kg (242 lb 3.2 oz) ECO Gen: Resting comfortably in bed CV: RRR Resp: Clear to auscultation bilaterally Abd: Soft, nontender, nondistended Ext: Trace pitting edema Neuro: Ambulates without assistance Psych: Appropriate mood and affect Laboratory Results Recent Labs Component Name 10/06/23204010/05/23205010/04/23 2311 WBC 2.5* 3.8* 6.4 RBC 2.43* 2.34* 2.56* HGB 7.5* 7.2* 7.9* HCT 21.5* 20.9* 22.9* MCV 88.5 89.3 89.5 MCHC 34.9 34.4 34.5 PLTCOUNT 125* 163 211 NEUTPCT 88.4* 71.1 - LYMPHPCT 8.4* 12.7* - NEUTABS 2.21 2.21 2.68 2.68 4.76 5.18 LYMPHABS 0.21* 0.48* 0.77* BASOABS 0.00 0.00 - Recent Labs Component Name 10/06/23204010/05/23205010/04/23 2311 POTASSIUM 4.1 3.8 4.1 CO2 18* 14* 14* BUN 13 13 12 CREATININE 0.64 0.68 0.70 EGFR >90 >90 >90 GLUCOSE 152* 139* 135* CALCIUM 9.1 9.1 9.2 MAGNESIUM 2.3 2.2 2.0 PHOS 3.2 3.1 3.1 ALT 82* 75* 50 AST 54* 57* 33 ALKPHOS 64 63 70 Pathology Results RESULT Normal FISH Result inv(3) or t(3;3) RPN1::MECOM Fusion: not detected Deletion 5q: not detected Monosomy 7: not detected Deletion 7q: not detected t(8;21) RUNX1::[id number] Fusion: not detected 11p15 (NUP98) Rearrangement: not detected 11q23 (KMT2A) Rearrangement: not detected inv(16) or t(16;16) CBFB::MYH11 Fusion: not detected INTERPRETATION There was no evidence of RPN1::MECOM fusion due to 3q21/3q26.2 inversion or translocation, deletion 5q31, monosomy 7, deletion 7q31, RUNX1::[id number] fusion due to translocation (8;21)(q21.3;q22), 11p15 (NUP98) [...] represent benign/regenerative myeloblasts. Electronically signed Radiology Results XR ABD OBSTRUCTION SERIES 2VW Result Date: 10/02/2023 IMPRESSION: Paucity of bowel gas. No pneumoperitoneum. Report dictated by Haleigh Mosquera MD (assistant professor of radiology). Fabien Bartholomew DO have personally reviewed and interpreted this examination/study. > Interpreting Provider: Fabien Yin DO on 10/02/2023 9:26 AM FL LUMBAR PUNCT FOR CHEMO INJ Result Date: 10/01/2023 IMPRESSION: 1. Successful lumbar puncture under fluoroscopic guidance at level L4-5. 2. Successful injection of intrathecal chemotherapeutic agent. Report dictated by Sivakumar Garrido DO (Video Arcade Manager). Attending Physician: Dr. Augustine Davison Cvt Rn: Dr. Sivakumar Garrido DO (Video Arcade Manager). The procedure was performed by the: The bacteriology research assistant, and the attending radiologist was present for all critical and aguirre portions of the procedure, and was immediately available to furnish services during the entire procedure. The attending radiologist performed the following procedural activities: Dr. Augustine Bartholomew was there and supervised aguirre portions of the procedure, not scrubbed. Augustine Bartholomew MD have personally reviewed and interpreted this examination/study. > Interpreting Provider: Augustine Davison MD on 10/01/2023 4:[address] HEAD WO CONTRAST Result Date: 10/01/2023 IMPRESSION: A tiny amount of subarachnoid hemorrhage in the right central sulcus is less conspicuous, suggesting evolution. Report dictated by Sivakumar Garrido DO (Video Arcade Manager). Romie Bartholomew MD have personally reviewed and interpreted this examination/study. > Interpreting Provider: Romie Sanchez MD on 10/01/2023 11:[address] ANGIO BRAIN AND NECK Result Date: 10/01/2023 IMPRESSION: 1.Previously described trace volume of subarachnoid hemorrhage within the right centralsulcus is not well appreciated on the current study. No evidence of acute intracranial hemorrhage on the current study. There appears to be some vascularity within the right central sulcus, likely the source of the signal seen on the prior MRI. Findings are nonspecific and could represent a variantvenous structure with slow flow. If there is clinical concern, follow-up imaging could be obtained for further evaluation. 2.Findings compatible with idiopathic intracranial hypertension, AKA pseudotumor cerebri. Clinical correlation is recommended. 3.No large arterial occlusions or significant sten oses identified in the head or neck. 4.Heterogeneous [...] verification. Report dictated by Steve Street M.D. (assistant professor of radiology) 10/01/2023 12:40 AM Augustine Bartholomew MD have personally reviewed and interpreted this examination/study. > Interpreting Provider: Augustine Davison MD on 10/01/2023 8:[address] HEAD WO CONTRAST Result Date: 09/30/2023 IMPRESSION: Redemonstration of a tiny amount of subarachnoid hemorrhage in the right central sulcus. These findings were discussed in detail with the patient's care provider, Dr. Tan by Dr. Sanchez via telephone at 4:43 PM on 09/30/2023 with readback comprehension and verification. Report dictated by Sivakumar Garrido DO (Video Arcade Manager). Romie Bartholomew MD have personally reviewed and interpreted this examination/study. > Interpreting Provider: Romie Sanchez MD on 09/30/2023 4:43 PM ASSESSMENT Selvin Mckeon is a 38 year old female who transferred to [facility] on 09/03/2023 for suspected AML. Patient started 7 + 3 (cytarabine and idarubicin) on 09/06/2023. 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 F on 09/22 #Tachycardia #Acute respiratory failure with hypoxia, resolved -Suspected to be due to atelectasis, anemia, possible pulmonary embolism, hypophosphatemia -CT chest PE-Suboptimal evaluation of the pulmonary arteries given phase of contrast. However, within the limitations of this examination, there is suggestion of a small nonocclusive pulmonary embolus in a segmental/subsegmental right lower lobe pulmonary artery. -Duplex venous ultrasound negative for DVT -Blood cx 09/22 no growth at 5 days -CXR 09/28 with unchanged diffuse interstitial prominence, could represent pulmonary vascular congestion and/or interstitial pneumonia no pleural effusion or pneumothorax #[id number] metabolic acidosis -Likely 2/2 Diamox #Transaminitis -Mild RECOMMENDATIONS -10/01 BM bx results so far showing remission (minimal residual disease testing still pending) so proceeding w/ HiDAC (high-dose cytarabine) consolidation chemo -C1D4 HiDAC consolidation. Dosing as detailed in [place] protocol will be 3 g q12 hr on days 1, 3, and 5. Daily neuro exams (particularly cerebellar) while on HiDAC. -Follow-up LP cytology, flow cytometry 10/06. Previous LP cytology showed no leukemia involvement. -Diamox discontinued due to persistent metabolic acidosis per primary team -Appreciate neuro, NSGY, ophtho, and rad onc input -Continue Valtrex for OI ppx and now on Decadron eye drops for conjunctivitis ppx while on high-dose cytarabine -Daily CBC w/diff, CMP -Daily weights -Transfusion parameters: (Leukoreduced and irradiated blood products)pRBC to keep Hgb >7 if hemodynamically stable and no bleeding. PLT transfusion to keep PLT >50K at this time due to (small) SAH and no upcoming NSGY intervention planned. PLT~100K is adequate for neurosurgical interventions.Fibrinogen > 100 -PRN anti-emetics -Would not recommend anticoagulation given low suspicion for PE, diagnostic imaging nonconclusive. Additionally she has thrombocytopenia. -Dr. Carias will be primary- patient will need outpatient follow up scheduled prior to discharge. Thank you for the opportunity to participate in the care of this patient. Please don't hesitate to contact heme/onc consult fellow via the warping mill operator or AMION if any clarifications needed or any questions. Plan was discussed with hematology/oncology attending. Linnette Antonio MS4 Hematology/Oncology Consult Service 10/07/2023 8:[address] REPRESENTATIVE Associated attestation - Jose Martin Lebron MD - 10/08/2023 3:14 PM ARTIST REPRESENTATIVE 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 ([facility]) 09/03/2023 Initial Diagnosis 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 ([facility]) 09/06/2023 - Chemotherapy cytarabine (Cytosar) [...] (10/04/2023), 6,700 mg (10/04/2023), 6,700 mg (10/06/2023) Attending Physician Supervisory Note I personally interviewed and examined the patient and agree with the doctor above. Jose Martin Lebron MD * Aakash Mitchell, DO - 10/07/2023 7:58 AM CST I have seen and examined the patient with the resident and I agree with the findings and plan of care as documented by the resident. Date of Service: 10-07-23. Santa Hoffman MD Neurology Consult Note/History & Physical Patient: Selvin Mckeon Age: [age] year old Admission Date and Time: 09/03/2023 Subjective Reason for consult/Chief Complaint: Concern for IIH History of Presenting Illness: Selvin Mckeon is a 38 year old female w/o any significant PMH who presented as an OSH transfer from [facility] for newly diagnosed AML now undergoing 7+3 induction therapy. Patient BMBx at [facility] showed 78% blasts. Patient was transferred for induction therapy.Heme/onc was consulted and 7+3 was started. Patient also noted to have visual changes, MRI brain and orbits was done. This showed partial empty sella w/ concern for possible IIH. Ophthalmology was consulted and found patient to have 3-4 optic disc edema w/ hemorrhage showing concern for leukemic infiltrate vs IIH. Patient underwent LP w/ IT cytarabine 100mg on 10/01, no opening pressure was measured. Cytologies were sent and pending. 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 Patient started on diamox 500mg BID w/ plans for uptitration. Neurology now consulted due to the concern for IIH. Past Medical History No history on file. Past Medical History: Diagnosis Date ??? NEGATIVE PAST MEDICAL HISTORY - SEE PROBLEM LIST Past Surgical History: Procedure Laterality Date ??? Section ??? Cholecystectomy ??? KIDNEY STONES, REMOVAL Allergies No Known Allergies Family History FMHx: Family history has been reviewed and is non contributory Social History Social history has been reviewed and is non contributory to current case. Review of Systems General - Denies changes in weight or appetite ENT - Denies dental or swallowing difficulties Cardiac - Denies chest pain or palpitations Pulmonary - Denies shortness of breath, cough, or sputum production Gastrointestinal - Denies abdominal pain or changes in bowel habits Genitourinary - Denies changes in bladder habits Endocrine - Denies heat or cold intolerance Musculoskeletal - Denies myalgias or arthralgias Hematological - Denies history of malignancy or blood abnormalities Neurological - See HPI Objective BP 116/77 (BP Cuff Size: A) Pulse 107 Temp 98.5 ??F (36.9 ??C) (Oral) Resp 20 Ht 1.575 m (5' 2 ) Wt 109.9 kg (242 lb 3.2 oz) SpO2 99% Temp (30hrs) Max:98.5 ??F (36.9 ??C) Body mass index is 44.3 kg/m??. Exam: General: Con - NAD, afebrile Heent - NCAT, MMM, anicteric Neck - No JVD, LAD, trachea midline CV - RRR for age, normal s1/s2, no m/r/g Pulm - CTAB, no w/r/r Abd - BS+, soft, NTND Ext: No c/c/e, 2+ dpp, normal ROM Cortical Function Mental Status Awake, alert, follows commands Orientation Person, place, time, and situation Language Fluency intact, comprehension intact, repetition intact Visual Hurt Intact bilaterally to confrontation Neglect No visual neglect noted, no tactile neglect noted Cranial Nerves II Pupils 4 mm and bilaterally reactive to light. Fundoscopic exam not performed. VIII Hearing is intact bilaterally to finger rub. III/IV/ Extraocular muscles intact. No diplopia, ptosis, nystagmus or convergence abnormalities noted. IX/X Palate elevated symmetrically without phonation abnormalities noted. V Facial sensation symmetric to light touch and intact bilaterally. Corneal reflex not examined. XIHead turning and shoulder shrug are intact. VII No facial palsy noted. XII Tongue is midline with normal movements and no atrophy noted. Motor Function Movement No abnormalities noted Bulk No abnormalities noted Tone No abnormalities noted Proximal Upper Distal Upper Proximal Lower Distal Lower Right 5/5 5/5 5/5 5/5 Left 5/5 5/5 5/5 5/5 Muscle Stretch Reflexes BI TRI BR PAT ACH TOES Right 2 2 2 2 2 Down Left 2 2 2 2 2 Down Sensory Light Touch Symmetric and intact bilaterally Noxious Stimuli Symmetric and intact bilaterally Temperature Not tested Pallesthesia Not tested Cerebellar FNF HOWIE HKS Right Intact Deferred Deferred Left Intact Deferred Deferred Gait Deferred Labs: Results for orders placed or performed during the hospital encounter of 09/03/23 (from the past 24 hour(s)) GLUCOSE - POINT OF CARE Result Value Ref Range Glucose WB/POC 83 70 - 115 mg/dL Specimen Type Cap Fingerstick GLUCOSE - POINT OF CARE Result Value Ref Range Glucose WB/POC 109 70 - 115 mg/dL Specimen Type Cap Fingerstick GLUCOSE CSF Specimen: CSF Tube 3; Cerebral spinal fluid Result Value Ref Range Glucose CSF 58 40 - 70 mg/dL PROTEIN CSF Specimen: CSF Tube 3; Cerebral spinal fluid Result Value Ref Range Protein CSF 31 15 - 45 mg/dL CELL COUNT W DIFFERENTIAL CSF Specimen: CSF Tube 1; Cerebral spinal fluid Result Value Ref Range Tube Number TUBE 4 Xanthochromia ABSENT ABSENT CSF Appearance CLEAR CSF Color COLORLESS Total Nucleated Cells CSF 1 <=5 x10E6/L RBC Count CSF 6 (H) <1 x10E6/L MENINGITIS/ENCEPHALITIS PANEL CSF Specimen: CSF; Microbiology Result Value Ref Range Escherichia coli K1 Not detected Not detected Haemophilus influenzae Not detected Not detected Listeria monocytogenes Not detected Not detected Neisseria meningitis Not detected Not detected Streptococcus agalactiae (Group B) Not detected Not detected Streptococcus pneumoniae Not detected Not detected Cytomegalovirus Not detected Not detected Enterovirus Not detected Not detected Herpes simplex Virus 1 Not detected Not detected Herpes simplex Virus 2 Not detected Not detected Human Herpesvirus 6 Not detected Not detected Human Parechovirus Not detected Not detected Varicella zoster Virus Not detected Not detected Cryptococcus neoformans/gattii Not detected Not detected HOLD SPECIMEN CSF Specimen: CSF; Cerebral spinal fluid Result Value Ref Range Specimen Hold Put in CSF Hold Specimen Rack in Processing Ref GLUCOSE - POINT OF CARE Result Value Ref Range Glucose WB/POC 123 (H) 70 - 115 mg/dL Specimen Type Cap Fingerstick COMPREHENSIVE METABOLIC PANEL Result Value Ref Range BUN 13 7 - 26 mg/dL Creatinine 0.64 0.56 - 0.96 mg/dL Sodium 137 136 - 145 mmol/L Potassium 4.1 3.5 - 4.5 mmol/L Chloride 114 (H) 98 - 107 mmol/L CO2 18 (L) 22 - 29 mmol/L Glucose 152 (H) 70 - 115 mg/dL Calcium 9.1 8.4 - 10.2 mg/dL Protein Total 6.7 6.0 - 8.3 g/dL Albumin 3.2 (L) 3.4 - 5.0 g/dL Bilirubin Total 0.4 0.2 - 1.2 mg/dL Alkaline Phosphatase 64 40 - 150 U/L ALT 82 (H) 5 - 55 U/L AST 54 (H) 5 - 34 U/L Anion Gap 5 (L) 6 - 16 BUN/Creatinine Ratio 20 7 - 23 Osmolality Calculated 287 275 - 295 mOsm/kg Albumin/Globulin Ratio 0.9 (L) 1.1 - 2.3 eGFR by CKD-EPI >90 >=90 mL/min/1.73 m2 MAGNESIUM BLOOD Result Value Ref Range Magnesium 2.3 1.6 - 2.6 mg/dL PHOSPHORUS BLOOD Result Value Ref Range Phosphorus 3.2 2.9 - 5.1 mg/dL CBC W AUTO DIFFERENTIAL Result Value Ref Range WBC 2.5 (L) 4.0 - 10.7 x10E9/L RBC Count 2.43 (L) 3.90 - 5.20 x10E12/L Hemoglobin 7.5 (L) 11.9 - 15.8 g/dL Hematocrit 21.5 (L) 34.8 - 46.1 % MCV 88.5 80.0 - 98.0 fL MCH 30.9 26.7 - 33.6 pg MCHC 34.9 31.7 - 36.3 g/dL RDW-CV 13.6 11.3 - 14.8 % Platelet Count 125 (L) 150 - 420 x10E9/L MPV 10.2 7.8 - 11.4 fL Preliminary Absolute Neutrophil 2.21 1.60 - 7.50 x10E9/L Neutrophil % 88.4 (H) 41.0 - 74.0 % Lymphocyte % 8.4 (L) 17.0 - 47.0 % Monocyte % 2.4 (L) 3.0 - 11.0 % Eosinophil % 0.0 0.0 - 7.0 % Basophil % 0.0 0.0 - 1.6 % Immature Granulocytes % 0.8 0.0 - 1.0 % Neutrophil Absolute 2.21 1.60 - 7.50 x10E9/L Lymphocyte Absolute 0.21 (L) 1.00 - 4.40 x10E9/L Monocyte Absolute 0.06 (L) 0.15 - 1.00 x10E9/L Eosinophil Absolute 0.00 0.00 - 0.60 x10E9/L Basophil Absolute 0.00 0.00 - 0.13 x10E9/L FIBRINOGEN ACTIVITY Result Value Ref Range Fibrinogen Clauss 196 (L) 200 - 400 mg/dL GLUCOSE - POINT OF CARE Result Value Ref Range Glucose WB/POC 134 (H) 70 - 115 mg/dL Specimen Type Cap Fingerstick Neuroimaging: Assessment and Plan: Selvin Mckeon is a 38 year old female w/o any significant PMH [facility] now undergoing 7+3 induction therapy. Now w/ concern for IIH vs leukemic infiltrate of retina. #Elevated ICP w/ concern for IIH -Patient w/ partial empty sella on MRI w/ concern for IIH -LP w/ opening pressure of 31 -Meningitis panel neg, culture/gram stain NGTD -glucose 58, protein 31, 1 nucleated cell -MRV w/o cavernous sinus thrombosis -Diomox stopped held due to non gap acidosis for the last few days -Ensure patient is not taking any Vitamin A and does not take any going forward -Diamox now restarted, if patient is unable to tolerate would need evaluation for potential shunt placement. Will be discussed with General Neurology Attending Physician, Dr. Yasmin Mitchell DO Internal Medicine, PGY-3 Pager [phone] 10/07/2023 7:[address] REPRESENTATIVE * Queta Moreno RN - 10/07/2023 1:55 AM CST Problem: Fall Risk Goal: Fall risk and fall related injury risk are minimized (interventions related to the fall risk can be found in the flowsheet documentation) Outcome: Progressing Problem: Hemodynamic Status/Cardiac Output Goal: Patient has stable vital signs and fluid balance Outcome: Progressing Problem: Pain/Discomfort Goal: Patient exhibits reduced pain/discomfort as evidenced by pain scores Outcome: Progressing Problem: Infection Goal: Signs and symptoms of infections are decreased or avoided Outcome: Progressing Problem: Nutrient: Increased nutrient needs (specify) Goal: Total intake will meet estimated nutrient needs Outcome: Progressing ST REPRESENTATIVE * Ngozi Maharaj - 10/06/2023 4:15 PM CST Problem: Infection Goal: Signs and symptoms of infections are decreased or avoided Outcome: Progressing Problem: Pain/Discomfort Goal: Patient exhibits reduced pain/discomfort as evidenced by pain scores Outcome: Progressing Problem: Fall Risk Goal: Fall risk and fall related injury risk are minimized (interventions related to the fall risk can be found in the flowsheet documentation) Outcome: Progressing Problem: Hemodynamic Status/Cardiac Output Goal: Patient has stable vital signs and fluid balance Outcome: Progressing ST REPRESENTATIVE * Tiana Burciaga DO - 10/06/2023 1:41 PM CST HEMATOLOGY/ONCOLOGY INPATIENT PROGRESS NOTE Name: Selvin Mckeon Age: [age] year old Date of : 1985 Date of Service: 10/06/2023 HEMATOLOGY & ONCOLOGY HISTORY Principal Diagnosis: AML, NPM-1 mut, fav risk Current Therapy: 7 + 3 (cytarabine and idarubicin) Prior Hematology/Oncology History: 09/02/2023: Bone marrow biopsy at [facility] which revealed 78% blasts likely AML. 09/03/2023: Patient transferred to [facility] for further care and evaluation. SUBJECTIVE History of Present Illness Chief Complaint: Concern for AML HPI on Initial Consult: Selvin Mckeon is a 38 year old female with no PMH who presented to [facility] presenting with fevers and flu like symptoms, initially thought to have tonsillitis seen on CT face?. Was treated with vanc cefepime and then CTX but had persistent pancytopenia so bone marrow biopsy was done whichshowed 78% blast on the bone marrow flow cytometry. Pt was transferred for concern for AML Formal bone marrow report still pending from [facility]SH [facility] - Lives alone with daughter ( 11 y old) who is currently staying with her dad No PMH of cancers , is adopted so not sure about FH No drugs or smoking or alcohol use Interval History: NAEO. Afebrile and remains HDS. No overnight transfusion requirements. Continuing consolidation chemo w/ LP today as below. Review of Systems: As noted in HPI. Past Medical & Surgical History Patient Active Problem List Diagnosis ??? Acute hypoxic respiratory failure (CMS-HCC) ??? Pulmonary edema ??? Febrile neutropenia (CMS-HCC) ??? Pancytopenia (CMS-HCC) ??? Tonsillitis ??? 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 NEGATIVE PAST MEDICAL HISTORY - SEE PROBLEM LIST Past Surgical History: Procedure Laterality Date ??? Section ??? Cholecystectomy ??? KIDNEY STONES, REMOVAL Past Oncology History Cancer Staging No matching staging information was found for the patient. Oncology History No history exists. Active Treatment Days for Selvin Mckeon (until 10/07/2023) 10/05/2023 ONCOLOGY TREATMENT: IP AML CONSOLIDATION - AGE <60 (HIGH DOSE CYTARABINE)([facility] HIDAC) Day 3, Cycle 1 (Started) Pre-Medications: ondansetron (Zofran) injection 8 mg, dexAMETHasone (Decadron) injection 8 mg Chemotherapy: cytarabine (Cytosar) 6,700 mg in 0.9% NaCl IV 597 mL infusion Social History Social History Tobacco Use ??? Smoking status: Former Packs/day: 1 Types: Cigarettes Start date: 2004 Quit date: 2010 Years since quittin.0 ??? Smokeless tobacco: Never Substance Use Topics [...] mg, Oral, BID insulin aspart (NovoLOG) pen 0-6 Units, Subcutaneous, TID WC methotrexate (PF) 12 mg in 0.9% NaCl 3 mL intrathecal, Intrathecal, Once ondansetron (Zofran) injection 8 mg, Intravenous, q12h perflutren lipid microsphere (Definity) injection 0.5 mL, Intravenous, intra- Procedure multiple valACYclovir (Valtrex) tablet 500 mg, Oral, BID [COMPLETED] dexAMETHasone (Decadron) injection 8 mg, Intravenous, Once [] potassium chloride ER (Klor-Con M) tablet 40 mEq, Oral, BID WC CONTINUOUS MEDICATIONS: PRN MEDICATIONS: Or Or 0.9% NaCl injection 1-10 mL, Intracatheter, PRN acetaminophen (Tylenol) tablet 650 mg, Oral, q6h PRN ALPRAZolam (Xanax) tablet 0.25 mg, Oral, BID PRN dextrose 10 % IV bolus, Intravenous, PRN dextrose 10 % IV bolus, Intravenous, PRN dicyclomine (Bentyl) tablet 20 mg, Oral, TID PRN docusate sodium (Colace) solution 50 mg, Oral, AT BEDTIME PRN glucagon (Glucagen) injection 1 mg, Subcutaneous, PRN glucose (Diabetic Use) oral gel, Oral, PRN guaiFENesin (Robitussin) solution 10 mL, Oral, q6h PRN heparin lock flush injection 500 Units, Intracatheter, PRN melatonin tablet 3 mg, Oral, AT BEDTIME PRN ondansetron (disintegrating) (Zofran ODT) tablet 8 mg, Oral, BID PRN ondansetron (Zofran) injection 8 mg, Intravenous, BID PRN oxyCODONE (immediate release) (Roxicodone) tablet 5 mg, Oral, q6h PRN prochlorperazine (Compazine) injection 5 mg, Intravenous, q6h PRN prochlorperazine (Compazine) tablet 10 mg, Oral, q4h PRN simethicone (Mylicon) chew tablet 80 mg, Oral, 4X/day PRN Allergies No Known Allergies OBJECTIVE Physical Exam Vitals: 10/06/23 0524 10/06/23 0528 10/06/23 0921 10/06/23 1308 BP: 117/78 110/75 119/74 Pulse: 94 93 95 Resp: 16 20 16 Temp: 97.5 ??F (36.4 ??C) 97.6 ??F (36.4 ??C) 97.7 ??F (36.5 ??C) SpO2: 100% 100% 100% Weight: 110.7 kg (244 lb 0.6 oz) Height: Wt Readings from Last 3 Encounters: 10/06/23 110.7 kg (244 lb 0.6 oz) ECO Unable to physically exam pt this afternoon due to pt being at radiology for LP. Laboratory Results Recent Labs Component Name 10/05/23205010/04/23231010/03/232101 WBC 3.8* 6.4 4.6 RBC 2.34* 2.56* 2.36* HGB 7.2* 7.9* 7.3* HCT 20.9* 22.9* 21.1* MCV 89.3 89.5 89.4 MCHC 34.4 34.5 34.6 PLTCOUNT 163 211 143* NEUTPCT 71.1 - - LYMPHPCT 12.7* - - NEUTABS 2.68 2.68 4.76 5.18 1.38* 2.39 LYMPHABS 0.48* 0.77* 1.33 BASOABS 0.00 - - Recent Labs Component Name 10/05/23205010/04/23231010/03/23 2102 POTASSIUM 3.8 4.1 3.2* CO2 14* 14* 17* BUN 13 12 9 CREATININE 0.68 0.70 0.70 EGFR >90 >90 >90 GLUCOSE 139* 135* 101 CALCIUM 9.1 9.2 8.9 MAGNESIUM 2.2 2.0 2.0 PHOS 3.1 3.1 3.2 ALT 75* 50 48 AST 57* 33 41* ALKPHOS 63 70 62 Pathology Results RESULT Normal FISH Result inv(3) or t(3;3) RPN1::MECOM Fusion: not detected Deletion 5q: not detected Monosomy 7: not detected Deletion 7q: not detected t(8;21) RUNX1::[id number] Fusion: not detected 11p15 (NUP98) Rearrangement: not detected 11q23 (KMT2A) Rearrangement: not detected inv(16) or t(16;16) CBFB::MYH11 Fusion: not detected INTERPRETATION There was no evidence of RPN1::MECOM fusion due to 3q21/3q26.2 inversion or translocation, deletion 5q31, monosomy 7, deletion 7q31, RUNX1::YEDQ7B6 fusion due to translocation (8;21)(q21.3;q22), 11p15 (NUP98) [...] represent benign/regenerative myeloblasts. Electronically signed Radiology Results XR ABD OBSTRUCTION SERIES 2VW Result Date: 10/02/2023 IMPRESSION: Paucity of bowel gas. No pneumoperitoneum. Report dictated by Haleigh Mosquera MD (assistant professor of radiology). Fabien Bartholomew DO have personally reviewed and interpreted this examination/study. > Interpreting Provider: Fabien Yin DO on 10/02/2023 9:26 AM FL LUMBAR PUNCT FOR CHEMO INJ Result Date: 10/01/2023 IMPRESSION: 1. Successful lumbar puncture under fluoroscopic guidance at level L4-5. 2. Successful injection of intrathecal chemotherapeutic agent. Report dictated by Sivakumar Garrido DO (Video Arcade Manager). Attending Physician: Dr. Augustine Davison Cvt Rn: Dr. Sivakumar Garrido DO (Video Arcade Manager). The procedure was performed by the: The bacteriology research assistant, and the attending radiologist was present for all critical and aguirre portions of the procedure, and was immediately available to furnish services during the entire procedure. The attending radiologist performed the following procedural activities: Dr. Augustine Bartholomew was there and supervised aguirre portions of the procedure, not scrubbed. Augustine Bartholomew MD have personally reviewed and interpreted this examination/study. > Interpreting Provider: Augustine Davison MD on 10/01/2023 4:[address] HEAD WO CONTRAST Result Date: 10/01/2023 IMPRESSION: A tiny amount of subarachnoid hemorrhage in the right central sulcus is less conspicuous, suggesting evolution. Report dictated by Sivakumar Garrido DO (Video Arcade Manager). Romie Bartholomew MD have personally reviewed and interpreted this examination/study. > Interpreting Provider: Romie Sanchez MD on 10/01/2023 11:[address] ANGIO BRAIN AND NECK Result Date: 10/01/2023 IMPRESSION: 1.Previously described trace volume of subarachnoid hemorrhage within the right centralsulcus is not well appreciated on the current study. No evidence of acute intracranial hemorrhage on the current study. There appears to be some vascularity within the right central sulcus, likely the source of the signal seen on the prior MRI. Findings are nonspecific and could represent a variantvenous structure with slow flow. If there is clinical concern, follow-up imaging could be obtained for further evaluation. 2.Findings compatible with idiopathic intracranial hypertension, AKA pseudotumor cerebri. Clinical correlation is recommended. 3.No large arterial occlusions or significant sten oses identified in the head or neck. 4.Heterogeneous [...] verification. Report dictated by Steve Street M.D. (assistant professor of radiology) 10/01/2023 12:40 AM IAugustine MD have personally reviewed and interpreted this examination/study. > Interpreting Provider: Augustine Davison MD on 10/01/2023 8:[address] HEAD WO CONTRAST Result Date: 09/30/2023 IMPRESSION: Redemonstration of a tiny amount of subarachnoid hemorrhage in the right central sulcus. These findings were discussed in detail with the patient's care provider, Dr. Tan by Dr. Sanchez via telephone at 4:43 PM on 09/30/2023 with readback comprehension and verification. Report dictated by Sivakumar Garrido DO (Video Arcade Manager). I, Romie Sanchez MD have personally reviewed and interpreted this examination/study. > Interpreting Provider: Romie Sanchez MD on 09/30/2023 4:43 PM ASSESSMENT Selvin Mckeon is a 38 year old female who transferred to [facility] on 09/03/2023 for suspected AML. Patient started 7 + 3 (cytarabine and idarubicin) on 09/06/2023. 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 F on 09/22 #Tachycardia #Acute respiratory failure with hypoxia, resolved -Suspected to be due to atelectasis, anemia, possible pulmonary embolism, hypophosphatemia -CT chest PE-Suboptimal evaluation of the pulmonary arteries given phase of contrast. However, within the limitations of this examination, there is suggestion of a small nonocclusive pulmonary embolus in a segmental/subsegmental right lower lobe pulmonary artery. -Duplex venous ultrasound negative for DVT -Blood cx 09/22 no growth at 5 days -CXR 09/28 with unchanged diffuse interstitial prominence, could represent pulmonary vascular congestion and/or interstitial pneumonia no pleural effusion or pneumothorax #[id number] metabolic acidosis -Likely 2/2 Diamox #Transaminitis -Mild RECOMMENDATIONS -10/01 BM bx results so far showing remission (minimal residual disease testing still pending) so proceeding w/ HiDAC (high-dose cytarabine) consolidation chemo -C1D3 HiDAC consolidation. Dosing as detailed in [place] protocol will be 3 g q12 hr on days 1, 3, and 5. Daily neuro exams (particularly cerebellar) while on HiDAC. -Tentative plan for repeat lumbar puncture today for intrathecal MTX and opening pressure, cytology, and flow cytometry. Previous LP cytology showed no leukemia involvement. -Diamox discontinued due to persistent metabolic acidosis per primary team -Appreciate neuro, NSGY, ophtho, and rad onc input -Continue Valtrex for OI ppx and now on Decadron eye drops for conjunctivitis ppx while on high-dose cytarabine -Daily CBC w/diff, CMP -Daily weights -Transfusion parameters: (Leukoreduced and irradiated blood products)pRBC to keep Hgb >7 if hemodynamically stable and no bleeding. PLT transfusion to keep PLT >50K at this time due to (small) SAH and no upcoming NSGY intervention planned. PLT~100K is adequate for neurosurgical interventions.Fibrinogen > 100 -PRN anti-emetics -Would not recommend anticoagulation given low suspicion for PE, diagnostic imaging nonconclusive. Additionally she has thrombocytopenia. -Dr. Carias will be primary- patient will need outpatient follow up scheduled prior to discharge. Thank you for the opportunity to participate in the care of this patient. Please don't hesitate to contact heme/onc consult fellow via the warping mill operator or AMION if any clarifications needed or any questions. Plan was discussed with hematology/oncology attending. Tiana Burciaga DO, PGY-4 Hematology/Oncology Fellow [facility] ST REPRESENTATIVE Associated attestation - Jose Martin Lebron MD - 10/06/2023 4:18 PM ARTIST REPRESENTATIVE Attending Physician Supervisory Note 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 (CMS-HCC) 09/03/2023 Initial Diagnosis Acute leukemia [...] (10/04/2023), 6,700 mg (10/04/2023), 6,700 mg (10/06/2023) I personally interviewed and examined the patient and agree with the doctor above. Jose Martin Lebron MD * Med Hodges, - 10/06/2023 8:12 AM CST [facility] Medicine Daily Progress Note Name: Selvin Mckeon Age: [age] year old Room: 721/01 Date Admitted: 09/03/2023 Hospital Course: Selvin Mckeon is a 38 year old female with no significant past medical history who presented on 09/03 with fatigue and flu-like symptoms. 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 Hospital course c/b persistent tachycardia, neutropenic fever, and hypoxia. Hospital course also c/b leukemic infiltrates on fundoscopic exam per Ophthalmology. An MRI was obtained which showeda small SAH, for which NSGY was consulted. After reviewing of CTH and CTA, NSGY determined that no acute surgical intervention was required and recommended OP f/u. Pt also received a Lumbar puncture with intrathecal Cytarabine for concern for leukemic infiltrates around eye. 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 Pt also required HiDAC Cytarabine inpatient for consolidation therapy. Neurology was also consulted for concern for elevated ICP given CT imaging and recommended a repeat LP with opening pressure and agreed with Diamox . Interval History: Pt resting in comfortably in bed this AM. Reports no changes in vision or cerebellar signs Objective: Patient Vitals for the past 6 hrs: Temp Pulse Resp BP 10/06/23 0524 97.5 ??F (36.4 ??C) 94 16 117/78 Estimated body mass index is 44.64 kg/m?? as calculated from the following: Height as of this encounter: 1.575 m (5' 2 ). Weight as of this encounter: 110.7 kg (244 lb 0.6 oz). O: Physical Exam Gen: NAD CV: RRR no M Resp: CTAB Neuro: negative romberg sign, heel to hurtado test Labs: Recent Labs Component Name 10/05/23205009/14/23214909/13/232051 WBC 3.8* - 0.5* HGB 7.2* - 7.4* HCT 20.9* - 20.0* NA 142 - 138 CL 119* - 108* BUN 13 - 10 CREATININE 0.68 - 0.66 PHOS 3.1 - - CALCIUM 9.1 - 8.4 PT - - 13.1 INR - - 1.0 AST 57* - 15 ALT 75* - 40 ALKPHOS 63 - 55 TBILI 0.3 - 0.5 - = values in this interval not displayed. 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 (CMS-HCC) (POA: Yes) Pancytopenia (CMS-HCC) (POA: Yes) Tonsillitis (POA: Yes) Acute hypoxic respiratory failure (CMS-HCC) (POA: No) Pulmonary edema (POA: No) Febrile neutropenia (CMS-HCC) (POA: No) #AML c/b pancytopenia and febrile neutropenia BMBx at [place] with 78% blasts, final report with 90% blast consistent with AML Day 14 BMBx without evidence of residual AML - D22 7+3 - medroxyprogesterone d/abbie PLAN - monitor daily labs, transfuse plt <20, Hgb <7; both leukoreduced and irradiated blood if needed - continue Valtrex for OI prophylaxis -Continue consolidation therapy w/ HiDAC. C1D3 HIDAC. 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 Also showed nonspecific findings but compatible with IIHgiven clinical correlation PLAN -rad onc consulted for radiation therapy -Neurology consulted. Recs include repeat LP w/ opening pressure and d/cing Medoxyprogesterone. -Ophthalmology following. Recommend IV Diamox.Cont to hold Diamox given non-AG acidosis. -Per Heme/Onc, will plan for repeat LP with Intrathecal Methotrexate today. Discussed w/ Radiology regarding need for opening pressure. -Neuro following. Recommend LP w/ opening pressure. Orders for LP placed. Discussed w/ Radiology. Small volume SAH in right central sulcus -NSGY consulted. Will f/u with pt in clinic w/ in 4-6 weeks w/ CTH non con for imaging. #Acute respiratory failure with hypoxia, resolved #Sinus tachycardia, resolved - holding anticoagulation given elevated risk in setting of thrombocytopenia, once platelets recover will need reevaluation for need of AC vs repeat CT PE - repeat TTE with normal RV, continue telemetry - Suspect may be related to anemia #Back pain, improved -Ctm #Tonsillitis, resolved - status post course of augmentin FEN: Electrolytes replaced with goal of K>4, Phos>3, Mag>2. Diet: NPO for LP. Will restart Regular diet PPx: holding chemical ppx in setting of thrombocytopenia Disposition: Inpatient Code Status: Full Pt seen and discussed with Dr.Wheeler Med Hodges, DO Internal Medicine, PGY-[address] REPRESENTATIVE Associated attestation - Umair Tan MD - 10/06/2023 4:44 PM ARTIST REPRESENTATIVE I have seen and examined the patient with the resident and I agree with the findings and plan of care as documented by the resident. In addition: - plan for LP today with intrathecal methotrexate - holding diamox given acidosis but may need to reconsider in AM Date of Service: 10/06/2023 Umair Tan MD * Valentín Mckeon, RN - 10/06/2023 3:31 AM CST Problem: Infection Goal: Signs and symptoms of infections are decreased or avoided Outcome: Progressing Problem: Pain/Discomfort Goal: Patient exhibits reduced pain/discomfort as evidenced by pain scores Outcome: Progressing Problem: Fall Risk Goal: Fall risk and fall related injury risk are minimized (interventions related to the fall risk can be found in the flowsheet documentation) Outcome: Progressing ST REPRESENTATIVE * Lynda Shaver Nurse Extern - 10/05/2023 10:25 AM CST Problem: Infection Goal: Signs and symptoms of infections are decreased or avoided Outcome: Progressing Problem: Pain/Discomfort Goal: Patient exhibits reduced pain/discomfort as evidenced by pain scores Outcome: Progressing Problem: Fall Risk Goal: Fall risk and fall related injury risk are minimized (interventions related to the fall risk can be found in the flowsheet documentation) Outcome: Progressing Problem: Hemodynamic Status/Cardiac Output Goal: Patient has stable vital signs and fluid balance Outcome: Progressing Problem: Nutrient: Increased nutrient needs (specify) Goal: Total intake will meet estimated nutrient needs Outcome: Progressing ST REPRESENTATIVE * Med Hodges DO - 10/05/2023 8:06 AM CST [facility] Medicine Daily Progress Note Name: Selvin Mckeon Age: [age] year old Room: 721/01 Date Admitted: 09/03/2023 Hospital Course: Selvin Mckeon is a 38 year old female with no significant past medical history who presented on 09/03 with fatigue and flu-like symptoms. 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 Hospital course c/b persistent tachycardia, neutropenic fever, and hypoxia. Hospital course also c/b leukemic infiltrates on fundoscopic exam per Ophthalmology. An MRI was obtained which showeda small SAH, for which NSGY was consulted. After reviewing of CTH and CTA, NSGY determined that no acute surgical intervention was required and recommended OP f/u. Pt also received a Lumbar puncture with intrathecal Cytarabine for concern for leukemic infiltrates around eye. 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 Pt also required HiDAC Cytarabine inpatient for consolidation therapy. Neurology was also consulted for concern for elevated ICP given CT imaging and recommended a repeat LP with opening pressure and agreed with Diamox . Interval History: Pt doing well this AM. No acute complaints CO2: 14 today -> Diamox d/abbie Plan for LP tomororw Objective: No data found. Estimated body mass index is 45.87 kg/m?? as calculated from the following: Height as of this encounter: 1.575 m (5' 2 ). Weight as of this encounter: 113.8 kg (250 lb 12.8 oz). O: Physical Exam grossly unchanged from yesterday Gen: NAD CV: RRR no M Resp: CTAB Labs: Recent Labs Component Name 10/04/23 2311 09/14/23 2150 09/13/232051 WBC 6.4 - 0.5* HGB 7.9* - 7.4* HCT 22.9* - 20.0* NA 141 - 138 CL 119* - 108* BUN 12 - 10 CREATININE 0.70 - 0.66 PHOS 3.1 - - CALCIUM 9.2 - 8.4 PT - - 13.1 INR - - 1.0 AST 33 - 15 ALT 50 - 40 ALKPHOS 70 - 55 TBILI 0.3 - 0.5 - = values in this interval not displayed. 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 (CMS-HCC) (POA: Yes) Pancytopenia (CMS-HCC) (POA: Yes) Tonsillitis (POA: Yes) Acute hypoxic respiratory failure (CMS-HCC) (POA: No) Pulmonary edema (POA: No) Febrile neutropenia (CMS-HCC) (POA: No) #AML c/b pancytopenia and febrile neutropenia BMBx at [place] with 78% blasts, final report with 90% blast consistent with AML Day 14 BMBx without evidence of residual AML - D22 7+3 - medroxyprogesterone d/abbie PLAN - monitor daily labs, transfuse plt <20, Hgb <7; both leukoreduced and irradiated blood if needed - continue Valtrex for OI prophylaxis #Acute onset floaters, 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 Also showed nonspecific findings but compatible with IIHgiven clinical correlation PLAN -rad onc consulted for radiation therapy -Neurology consulted. Recs include repeat LP w/ opening pressure and d/cing Medoxyprogesterone. -Ophthalmology following. Recommend IV Diamox.Diamox held today given non-AG acidosis. -Per Heme/Onc, will plan for repeat LP with Intrathecal Methotrexate on Friday. Discussed w/ Radiology regarding need for opening pressure. -Neuro following. Recommend LP w/ opening pressure. Orders for LP placed. Discussed w/ Radiology. Small volume SAH in right central sulcus -NSGY consulted. Will f/u with pt in clinic w/ in 4-6 weeks w/ CTH non con for imaging. #Acute respiratory failure with hypoxia, resolved #Sinus tachycardia, resolved - holding anticoagulation given elevated risk in setting of thrombocytopenia, once platelets recover will need reevaluation for need of AC vs repeat CT PE - repeat TTE with normal RV, continue telemetry - Suspect may be related to anemia #Back pain, improved -Ctm #Tonsillitis, resolved - status post course of augmentin FEN: Electrolytes replaced with goal of K>4, Phos>3, Mag>2. Diet: Regular. NPO @ [place] For LP PPx: holding chemical ppx in setting of thrombocytopenia Disposition: Inpatient Code Status: Full Pt seen and discussed with Dr.Wheeler Med Hodges, ST REPRESENTATIVE Associated attestation - Umair Tan MD - 10/05/2023 10:55 AM ARTIST REPRESENTATIVE I have seen and examined the patient with the resident and I agree with the findings and plan of care as documented by the resident. Date of Service: 10/05/2023 Umair Tan MD * Remington Stafford MD - 10/05/2023 6:52 AM CST Images from the original note were not included. HEMATOLOGY/ONCOLOGY INPATIENT PROGRESS NOTE Name: Selvin Mckeon Age: [age] year old Date of : 1985 Date of Service: 10/05/2023 HEMATOLOGY & ONCOLOGY HISTORY Principal Diagnosis: AML, NPM-1 mut, fav risk Current Therapy: 7 + 3 (cytarabine and idarubicin) Prior Hematology/Oncology History: 09/02/2023: Bone marrow biopsy at [facility] which revealed 78% blasts likely AML. 09/03/2023: Patient transferred to [facility] for further care and evaluation. SUBJECTIVE History of Present Illness Chief Complaint: Concern for AML HPI on Initial Consult: Selvin Mckeon is a 38 year old female with no PMH who presented to [facility] presenting with fevers and flu like symptoms, initially thought to have tonsillitis seen on CT face?. Was treated with vanc cefepime and then CTX but had persistent pancytopenia so bone marrow biopsy was done whichshowed 78% blast on the bone marrow flow cytometry. Pt was transferred for concern for AML Formal bone marrow report still pending from [facility] - Lives alone with daughter ( 11 y old) who is currently staying with her dad No PMH of cancers , is adopted so not sure about FH No drugs or smoking or alcohol use Interval History: NAEO. No new sx except tired from multiple overnight interruptions for chemo. Feeling well overall.Afebrile and remains HDS. No overnight transfusion requirements. Continuing consolidation chemo today as below. Review of Systems: As noted in HPI. 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 Oncology History No history exists. Active Treatment Days for Selvin Mckeon (until 10/06/2023) 10/04/2023 ONCOLOGY TREATMENT: IP AML CONSOLIDATION - AGE <60 (HIGH DOSE CYTARABINE)(S[facility] HIDAC) Day 1, Cycle 1 (Started) Pre-Medications: ondansetron (Zofran) injection 8 mg, dexAMETHasone (Decadron) injection 8 mg Chemotherapy: cytarabine (Cytosar) 6,700 mg in 0.9% NaCl IV 597 mL infusion Supportive Care: dexAMETHasone (Decadron) 0.1 % ophthalmic suspension 2 drop, famotidine (Pepcid) tablet 20 mg, prochlorperazine (Compazine) tablet 10 mg, prochlorperazine (Compazine) injection 5 mg,ondansetron (disintegrating) (Zofran ODT) tablet 8 mg, ondansetron (Zofran) injection 8 mg, levoFLOXacin (Levaquin) tablet 500 mg, valACYclovir (Valtrex) tablet 500 mg 10/06/2023 ONCOLOGY TREATMENT: IP AML CONSOLIDATION - AGE <60 (HIGH DOSE CYTARABINE)(S[facility]HU HIDAC) Day 3, Cycle 1 (Planned) Pre-Medications: ondansetron (Zofran) injection 8 mg, dexAMETHasone (Decadron) injection 8 mg Chemotherapy: cytarabine (Cytosar) 6,700 mg in 0.9% NaCl IV 567 mL infusion Social History Social History Tobacco Use Smoking status: Former Packs/day: 1 Types: Cigarettes Start date: 2004 Quit date: 2010 Years since quittin.0 Smokeless tobacco: Never Substance Use Topics Alcohol use: Yes Comment: occasional Family History Family History Family history unknown: Yes Medications SCHEDULED MEDICATIONS: 0.9% NaCl injection 3 mL, Intracatheter, q8h acetaZOLAMIDE ER 12hr (Diamox Sequel) capsule 500 mg, Oral, BID dexAMETHasone (Decadron) 0.1 % ophthalmic suspension 2 drop, Each Eye, 4X/DAY famotidine (Pepcid) tablet 20 mg, Oral, BID insulin aspart (NovoLOG) pen 0-6 Units, Subcutaneous, TID WC perflutren lipid microsphere (Definity) injection 0.5 mL, Intravenous, intra- Procedure multiple potassium chloride ER (Klor-Con M) tablet 40 mEq, Oral, BID WC valACYclovir (Valtrex) tablet 500 mg, Oral, BID [COMPLETED] cytarabine (Cytosar) 6,700 mg in 0.9% NaCl IV 597 mL infusion, Intravenous, q12h [COMPLETED] dexAMETHasone (Decadron) injection 8 mg, Intravenous, Once [COMPLETED] ondansetron (Zofran) injection 8 mg, Intravenous, q12h [COMPLETED] potassium chloride ER (Klor-Con M) tablet 40 mEq, Oral, Once [] gadobutrol (Gadavist) injection, Intravenous, Contrast - Once CONTINUOUS MEDICATIONS: PRN MEDICATIONS: Or Or 0.9% NaCl injection 1-10 mL, Intracatheter, PRN acetaminophen (Tylenol) tablet 650 mg, Oral, q6h PRN ALPRAZolam (Xanax) tablet 0.25 mg, Oral, BID PRN dextrose 10 % IV bolus, Intravenous, PRN dextrose 10 % IV bolus, Intravenous, PRN dicyclomine (Bentyl) tablet 20 mg, Oral, TID PRN docusate sodium (Colace) solution 50 mg, Oral, AT BEDTIME PRN glucagon (Glucagen) injection 1 mg, Subcutaneous, PRN glucose (Diabetic Use) oral gel, Oral, PRN guaiFENesin (Robitussin) solution 10 mL, Oral, q6h PRN heparin lock flush injection 500 Units, Intracatheter, PRN melatonin tablet 3 mg, Oral, AT BEDTIME PRN ondansetron (disintegrating) (Zofran ODT) tablet 8 mg, Oral, BID PRN ondansetron (Zofran) injection 8 mg, Intravenous, BID PRN oxyCODONE (immediate release) (Roxicodone) tablet 5 mg, Oral, q6h PRN prochlorperazine (Compazine) injection 5 mg, Intravenous, q6h PRN prochlorperazine (Compazine) tablet 10 mg, Oral, q4h PRN simethicone (Mylicon) chew tablet 80 mg, Oral, 4X/day PRN Allergies No Known Allergies OBJECTIVE Physical Exam Vitals: 10/04/23 0046 10/04/23 0533 10/04/23 1958 10/05/23 0509 BP: 124/70 110/73 140/86 Pulse: 107 109 105 Resp: 18 18 18 Temp: 98 ??F (36.7 ??C) 97.9 ??F (36.6 ??C) 97.4 ??F (36.3 ??C) SpO2: 99% 100% 99% Weight: 113.1 kg (249 lb 6.4 oz) 113.8 kg (250 lb 12.8 oz) Height: Wt Readings from Last 3 Encounters: 10/05/23 113.8 kg (250 lb 12.8 oz) ECO General: Comfortable, NAD HEENT: Normocephalic. Normal appearing conjunctiva. Sclerae anicteric. Lungs: Non-labored breathing at rest. Musculoskeletal: No gross deformity of extremities. Skin: No rashes or lesions visible. Neurologic: Awake, alert, grossly intact. Moving all limbs. Psychiatric: Cooperative. Conversation appropriate. Laboratory Results Recent Labs Component Name 10/04/23231010/03/23210110/02/232131 WBC 6.4 4.6 4.1 RBC 2.56* 2.36* 2.33* HGB 7.9* 7.3* 7.2* HCT 22.9* 21.1* 21.0* MCV 89.5 89.4 90.1 MCHC 34.5 34.6 34.3 PLTCOUNT 211 143* 127* NEUTABS 4.76 5.18 1.38* 2.39 1.24* 1.56* LYMPHABS 0.77* 1.33 1.48 Recent Labs Component Name 10/04/23231010/03/23210110/02/232131 POTASSIUM 4.1 3.2* 3.2* CO2 14* 17* 19* BUN 12 9 6* CREATININE 0.70 0.70 0.63 EGFR >90 >90 >90 GLUCOSE 135* 101 87 CALCIUM 9.2 8.9 8.8 MAGNESIUM 2.0 2.0 2.0 PHOS 3.1 3.2 3.5 ALT 50 48 43 AST 33 41* 45* ALKPHOS 70 62 61 Pathology Results RESULT Normal FISH Result inv(3) or t(3;3) RPN1::MECOM Fusion: not detected Deletion 5q: not detected Monosomy 7: not detected Deletion 7q: not detected t(8;21) RUNX1::[id number] Fusion: not detected 11p15 (NUP98) Rearrangement: not detected 11q23 (KMT2A) Rearrangement: not detected inv(16) or t(16;16) CBFB::MYH11 Fusion: not detected INTERPRETATION There was no evidence of RPN1::MECOM fusion due to 3q21/3q26.2 inversion or translocation, deletion 5q31, monosomy 7, deletion 7q31, RUNX1::GWBO2Y6 fusion due to translocation (8;21)(q21.3;q22), 11p15 (NUP98) [...] only. Flow Cytometry Summary Concurrent flow cytometry ([id number]) shows acute myeloid leukemia. Specimens A Bone [...] represent benign/regenerative myeloblasts. Electronically signed Radiology Results XR ABD OBSTRUCTION SERIES 2VW Result Date: 10/02/2023 IMPRESSION: Paucity of bowel gas. No pneumoperitoneum. Report dictated by Haleigh Mosquera MD (assistant professor of radiology). Fabien Bartholomew DO have personally reviewed and interpreted this examination/study. > Interpreting Provider: Fabien Yin DO on 10/02/2023 9:26 AM FL LUMBAR PUNCT FOR CHEMO INJ Result Date: 10/01/2023 IMPRESSION: 1. Successful lumbar puncture under fluoroscopic guidance at level L4-5. 2. Successful injection of intrathecal chemotherapeutic agent. Report dictated by Sivakumar Garrido DO (Video Arcade Manager). Attending Physician: Dr. Augustine Davison Cvt Rn: Dr. Sivakumar Garrido DO (Video Arcade Manager). The procedure was performed by the: The bacteriology research assistant, and the attending radiologist was present for all critical and aguirre portions of the procedure, and was immediately available to furnish services during the entire procedure. The attending radiologist performed the following procedural activities: IDr. Augustine was there and supervised aguirre portions of the procedure, not scrubbed. Augustine Bartholomew MD have personally reviewed and interpreted this examination/study. > Interpreting Provider: Augustine Davison MD on 10/01/2023 4:[address] HEAD WO CONTRAST Result Date: 10/01/2023 IMPRESSION: A tiny amount of subarachnoid hemorrhage in the right central sulcus is less conspicuous, suggesting evolution. Report dictated by Sivakumar Garrido DO (Video Arcade Manager). Romie Bartholomew MD have personally reviewed and interpreted this examination/study. > Interpreting Provider: Romie Sanchez MD on 10/01/2023 11:[address] ANGIO BRAIN AND NECK Result Date: 10/01/2023 IMPRESSION: 1.Previously described trace volume of subarachnoid hemorrhage within the right centralsulcus is not well appreciated on the current study. No evidence of acute intracranial hemorrhage on the current study. There appears to be some vascularity within the right central sulcus, likely the source of the signal seen on the prior MRI. Findings are nonspecific and could represent a variantvenous structure with slow flow. If there is clinical concern, follow-up imaging could be obtained for further evaluation. 2.Findings compatible with idiopathic intracranial hypertension, AKA pseudotumor cerebri. Clinical correlation is recommended. 3.No large arterial occlusions or significant sten oses identified in the head or neck. 4.Heterogeneous [...] verification. Report dictated by Steve Street M.D. (assistant professor of radiology) 10/01/2023 12:40 AM IAugustine MD have personally reviewed and interpreted this examination/study. > Interpreting Provider: Augustine Davison MD on 10/01/2023 8:[address] HEAD WO CONTRAST Result Date: 09/30/2023 IMPRESSION: Redemonstration of a tiny amount of subarachnoid hemorrhage in the right central sulcus. These findings were discussed in detail with the patient's care provider, Dr. Tan by Dr. Sanchez via telephone at 4:43 PM on 09/30/2023 with readback comprehension and verification. Report dictated by Sivakumar Garrido DO (Video Arcade Manager). IRomie MD have personally reviewed and interpreted this examination/study. > Interpreting Provider: Romie Sanchez MD on 09/30/2023 4:43 PM ASSESSMENT Selvin Mckeon is a 38 year old female who transferred to [facility] on 09/03/2023 for suspected AML. Patient started 7 + 3 (cytarabine and idarubicin) on 09/06/2023. 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 F on 09/22 #Tachycardia #Acute respiratory failure with hypoxia, resolved -Suspected to be due to atelectasis, anemia, possible pulmonary embolism, hypophosphatemia -CT chest PE-Suboptimal evaluation of the pulmonary arteries given phase of contrast. However, within the limitations of this examination, there is suggestion of a small nonocclusive pulmonary embolus in a segmental/subsegmental right lower lobe pulmonary artery. -Duplex venous ultrasound negative for DVT -Blood cx 09/22 no growth at 5 days -CXR 09/28 with unchanged diffuse interstitial prominence, could represent pulmonary vascular congestion and/or interstitial pneumonia no pleural effusion or pneumothorax #[id number] metabolic acidosis -Likely 2/2 Diamox RECOMMENDATIONS -10/01 BM bx results so far showing remission (minimal residual disease testing still pending) so proceeding w/ HiDAC (high-dose cytarabine) consolidation chemo -C1D2 HiDAC consolidation. Dosing as detailed in [place] protocol will be 3 g q12 hr on days 1, 3, and 5. Daily neuro exams while on HiDAC. -Tentative plan for repeat lumbar puncture on Friday, 10/06 for intrathecal chemo and opening pressure, cytology, and flow cytometry. Previous LP cytology showed no leukemia involvement. -Decreased dose of Diamox and possible holding today per primary team due to acidosis -Appreciate neuro, NSGY, ophtho, and rad onc input -Continue Valtrex for OI ppx and now on Decadron eye drops for conjunctivitis ppx while on high-dose cytarabine -Daily CBC w/diff, CMP -Daily weights -Transfusion parameters: (Leukoreduced and irradiated blood products)pRBC to keep Hgb >7 if hemodynamically stable and no bleeding. PLT transfusion to keep PLT >50K at this time due to (small) SAH and no upcoming NSGY intervention planned. PLT~100K is adequate for neurosurgical interventions.Fibrinogen > 100 -PRN anti-emetics -Would not recommend anticoagulation given low suspicion for PE, diagnostic imaging nonconclusive. Additionally she has thrombocytopenia. -Dr. Carias will be primary- patient will need outpatient follow up scheduled prior to discharge. Thank you for the opportunity to participate in the care of this patient. Please don't hesitate to contact heme/onc consult fellow via the warping mill operator or AMION if any clarifications needed or any questions. Plan was discussed with hematology/oncology attending. Tiana Burciaga DO, PGY-4 Hematology/Oncology Fellow [facility] I personally evaluated and examined Selvin Mckeon. I confirmed the aguirre elements of of history and physical examination. I also discussed the assessment and plan in detail with the team on rounds and with the patient. I made some modifications to the above note. I fully concur with the above assessment and plan. Maribel Stafford MD [facility] Department of Internal Medicine Division of Hematology Oncology ST REPRESENTATIVE * Valentín Mckeon RN - 10/05/2023 2:01 AM CST Problem: Infection Goal: Signs and symptoms of infections are decreased or avoided Outcome: Progressing Problem: Pain/Discomfort Goal: Patient exhibits reduced pain/discomfort as evidenced by pain scores Outcome: Progressing Problem: Fall Risk Goal: Fall risk and fall related injury risk are minimized (interventions related to the fall risk can be found in the flowsheet documentation) Outcome: Progressing Problem: Hemodynamic Status/Cardiac Output Goal: Patient has stable vital signs and fluid balance Outcome: Progressing * Chandu Padgett RN - 10/04/2023 5:12 PM CST Problem: Infection Goal: Signs and symptoms of infections are decreased or avoided Outcome: Progressing Problem: Pain/Discomfort Goal: Patient exhibits reduced pain/discomfort as evidenced by pain scores Outcome: Progressing Problem: Fall Risk Goal: Fall risk and fall related injury risk are minimized (interventions related to the fall risk can be found in the flowsheet documentation) Outcome: Progressing ST REPRESENTATIVE * Med Hodges DO - 10/04/2023 8:34 AM CST [facility] Medicine Daily Progress Note Name: Selvin Mckeon Age: [age] year old Room: 721/01 Date Admitted: 09/03/2023 Hospital Course: Selvin Mckeon is a 38 year old female with no significant past medical history who presented on 09/03 with fatigue and flu-like symptoms. 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 Hospital course c/b persistent tachycardia, neutropenic fever, and hypoxia. Hospital course also c/b leukemic infiltrates on fundoscopic exam per Ophthalmology. An MRI was obtained which showeda small SAH, for which NSGY was consulted. After reviewing of CTH and CTA, NSGY determined that no acute surgical intervention was required and recommended OP f/u. Pt also received a Lumbar puncture with intrathecal Cytarabine for concern for leukemic infiltrates around eye. 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 Pt also required HiDAC Cytarabine inpatient for consolidation therapy. Neurology was also consulted for concern for elevated ICP given CT imaging and recommended a repeat LP with opening pressure and agreed with Diamox . Interval History: Pt doing well this AM. No acute complaints Objective: Patient Vitals for the past 6 hrs: Temp Pulse Resp BP BP Method 10/04/23 0533 97.9 ??F (36.6 ??C) 109 18 110/73 Automatic Estimated body mass index is 45.62 kg/m?? as calculated from the following: Height as of this encounter: 1.575 m (5' 2 ). Weight as of this encounter: 113.1 kg (249 lb 6.4 oz). O: Physical Exam grossly unchanged from yesterday Gen: NAD CV: RRR no M Resp: CTAB Labs: Recent Labs Component Name 10/03/23210109/14/23214909/13/232051 WBC 4.6 - 0.5* HGB 7.3* - 7.4* HCT 21.1* - 20.0* NA 142 - 138 CL 115* - 108* BUN 9 - 10 CREATININE 0.70 - 0.66 PHOS 3.2 - - CALCIUM 8.9 - 8.4 PT - - 13.1 INR - - 1.0 AST 41* - 15 ALT 48 - 40 ALKPHOS 62 - 55 TBILI 0.2 - 0.5 - = values in this interval not displayed. 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 (CMS-HCC) (POA: Yes) Pancytopenia (CMS-HCC) (POA: Yes) Tonsillitis (POA: Yes) Acute hypoxic respiratory failure (CMS-HCC) (POA: No) Pulmonary edema (POA: No) Febrile neutropenia (CMS-HCC) (POA: No) #AML c/b pancytopenia and febrile neutropenia BMBx at [place] with 78% blasts, final report with 90% blast consistent with AML Day 14 BMBx without evidence of residual AML - D22 7+3 - medroxyprogesterone d/abbie PLAN - monitor daily labs, transfuse plt <20, Hgb <7; both leukoreduced and irradiated blood if needed - continue Valtrex for OI prophylaxis #Acute onset floaters, 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 Also showed nonspecific findings but compatible with IIHgiven clinical correlation PLAN -rad onc consulted for radiation therapy -Neurology consulted. Recs include repeat LP w/ opening pressure and d/cing Medoxyprogesterone. -Ophthalmology following. Recommend IV Diamox. Will continue to monitor -Per Heme/Onc, will plan for repeat LP with Intrathecal Methotrexate on Friday. -Neuro following. Recommend LP w/ opening pressure. Orders for LP placed. Discussed w/ Radiology. Small volume SAH in right central sulcus -NSGY consulted. Will f/u with pt in clinic w/ in 4-6 weeks w/ CTH non con for imaging. #Acute respiratory failure with hypoxia, resolved #Sinus tachycardia, resolved - holding anticoagulation given elevated risk in setting of thrombocytopenia, once platelets recover will need reevaluation for need of AC vs repeat CT PE - repeat TTE with normal RV, continue telemetry - Suspect may be related to anemia #Back pain, improved -Ctm #Tonsillitis, resolved - status post course of augmentin FEN: Electrolytes replaced with goal of K>4, Phos>3, Mag>2. Diet: Regular PPx: holding chemical ppx in setting of thrombocytopenia Disposition: Inpatient Code Status: Full Pt seen and discussed with Dr.Wheeler Med Hodges, DO ST REPRESENTATIVE Associated attestation - Umair Tan MD - 10/04/2023 11:58 AM ARTIST REPRESENTATIVE I have seen and examined the patient with the resident and I agree with the findings and plan of care as documented by the resident. Date of Service: 10/04/2023 Umair Tan MD * Remington Stafford MD - 10/04/2023 7:09 AM CST Images from the original note were not included. 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 09/03/2023: Patient transferred to [facility] for further care and evaluation. SUBJECTIVE History of Present Illness Chief Complaint: Concern for AML HPI on Initial Consult: Selvin Mckeon is a 38 year old female with no PMH who presented to [facility] presenting with fevers and flu like symptoms, initially thought to have tonsillitis seen on CT face?. Was treated with vanc cefepime and then CTX but had persistent pancytopenia so bone marrow biopsy was done whichshowed 78% blast on the bone marrow flow cytometry. Pt was transferred for concern for AML Formal bone marrow report still pending from [facility] - Lives alone with daughter ( 11 y old) who is currently staying with her dad No PMH of cancers , is adopted so not sure about FH No drugs or smoking or alcohol use Interval History: NAEO. No new sx. Feeling well overall. Afebrile and remains HDS. No overnight transfusion requirements. BM bx results so far from 10/01 showing remission; discussed w/ pt today. Beginning consolidation chemo today as below. Review of Systems: As noted in HPI. 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 Oncology History No history exists. Active Treatment Days for Selvin Mckeon (until 10/05/2023) 10/03/2023 ONCOLOGY TREATMENT: IP AML CONSOLIDATION - AGE <60 (HIGH DOSE CYTARABINE)([facility] HIDAC) Day 1, Cycle 1 (Planned) Pre-Medications: ondansetron (Zofran) injection 8 mg, dexAMETHasone (Decadron) injection 8 mg Chemotherapy: cytarabine (Cytosar) 6,700 mg in 0.9% NaCl IV 567 mL infusion Supportive Care: dexAMETHasone sodium phosphate (Decadron) 0.1 % ophthalmic solution 2 drop, famotidine (Pepcid) tablet 20 mg, prochlorperazine (Compazine) tablet 10 mg, prochlorperazine (Compazine) injection 5 mg, ondansetron (disintegrating) (Zofran ODT) tablet 8 mg, ondansetron (Zofran) injection 8 mg, levoFLOXacin (Levaquin) tablet 500 mg, valACYclovir (Valtrex) tablet 500 mg 10/05/2023 ONCOLOGY TREATMENT: IP AML CONSOLIDATION - AGE <60 (HIGH DOSE CYTARABINE)([facility] HIDAC) Day 3, Cycle 1 (Planned) Pre-Medications: ondansetron (Zofran) injection 8 mg, dexAMETHasone (Decadron) injection 8 mg Chemotherapy: cytarabine (Cytosar) 6,700 mg in 0.9% NaCl IV 567 mL infusion Social History Social History Tobacco Use Smoking status: Former Packs/day: 1 Types: Cigarettes Start date: 2004 Quit date: 2010 Years since quittin.0 Smokeless tobacco: Never Substance Use Topics Alcohol use: Yes Comment: occasional Family History Family History Family history unknown: Yes Medications SCHEDULED MEDICATIONS: 0.9% NaCl injection 3 mL, Intracatheter, q8h acetaZOLAMIDE ER 12hr (Diamox Sequel) capsule 1,000 mg, Oral, BID famotidine (Pepcid) tablet 20 mg, Oral, BID gadobutrol (Gadavist) injection, Intravenous, Contrast - Once insulin aspart (NovoLOG) pen 0-6 Units, Subcutaneous, TID perflutren lipid microsphere (Definity) injection 0.5 mL, Intravenous, intra- Procedure multiple potassium chloride ER (Klor-Con M) tablet 40 mEq, Oral, BID valACYclovir (Valtrex) tablet 500 mg, Oral, BID CONTINUOUS MEDICATIONS: PRN MEDICATIONS: Or Or 0.9% NaCl injection 1-10 mL, Intracatheter, PRN acetaminophen (Tylenol) tablet 650 mg, Oral, q6h PRN ALPRAZolam (Xanax) tablet 0.25 mg, Oral, BID PRN dextrose 10 % IV bolus, Intravenous, PRN dextrose 10 % IV bolus, Intravenous, PRN dicyclomine (Bentyl) tablet 20 mg, Oral, TID PRN docusate sodium (Colace) solution 50 mg, Oral, AT BEDTIME PRN glucagon (Glucagen) injection 1 mg, Subcutaneous, PRN glucose (Diabetic Use) oral gel, Oral, PRN guaiFENesin (Robitussin) solution 10 mL, Oral, q6h PRN heparin lock flush injection 500 Units, Intracatheter, PRN melatonin tablet 3 mg, Oral, AT BEDTIME PRN ondansetron (disintegrating) (Zofran ODT) tablet 8 mg, Oral, BID PRN ondansetron (Zofran) injection 8 mg, Intravenous, BID PRN oxyCODONE (immediate release) (Roxicodone) tablet 5 mg, Oral, q6h PRN prochlorperazine (Compazine) injection 5 mg, Intravenous, q6h PRN simethicone (Mylicon) chew tablet 80 mg, Oral, 4X/day PRN Allergies No Known Allergies OBJECTIVE Physical Exam Vitals: 10/03/23 1539 10/03/23 2031 10/04/23 0046 10/04/23 0533 BP: 127/75 128/74 124/70 110/73 Pulse: 104 100 107 109 Resp: 18 18 Temp: 97.8 ??F (36.6 ??C) 97.7 ??F (36.5 ??C) 98 ??F (36.7 ??C) 97.9 ??F (36.6 ??C) SpO2: 98% 100% 99% 100% Weight: 113.1 kg (249 lb 6.4 oz) Height: Wt Readings from Last 3 Encounters: 10/04/23 113.1 kg (249 lb 6.4 oz) ECO General: Comfortable, NAD HEENT: Normocephalic. Normal appearing conjunctiva. Sclerae anicteric. Lungs: Non-labored breathing at rest. Musculoskeletal: No gross deformity of extremities. Skin: No rashes or lesions visible. Neurologic: Awake, alert, grossly intact. Moving all limbs. Psychiatric: Cooperative. Conversation appropriate. Laboratory Results Recent Labs Component Name 10/03/23210110/02/23213110/01/232118 WBC 4.6 4.1 4.1 RBC 2.36* 2.33* 2.36* HGB 7.3* 7.2* 7.3* HCT 21.1* 21.0* 21.5* MCV 89.4 90.1 91.1 MCHC 34.6 34.3 34.0 PLTCOUNT 143* 127* 110* NEUTABS 1.38* 2.39 1.24* 1.56* 1.06* 1.93 LYMPHABS 1.33 1.48 1.11 Recent Labs Component Name 10/03/23210110/02/23213110/01/232118 POTASSIUM 3.2* 3.2* 3.5 CO2 17* 19* 21* BUN 9 6* <5* CREATININE 0.70 0.63 0.53* EGFR >90 >90 >90 GLUCOSE 101 87 95 CALCIUM 8.9 8.8 8.4 MAGNESIUM 2.0 2.0 2.0 PHOS 3.2 3.5 2.6* ALT 48 43 29 AST 41* 45* 38* ALKPHOS 62 61 58 Pathology Results RESULT Normal FISH Result inv(3) or t(3;3) RPN1::MECOM Fusion: not detected Deletion 5q: not detected Monosomy 7: not detected Deletion 7q: not detected t(8;21) RUNX1::MFUQ9V1 Fusion: not detected 11p15 (NUP98) Rearrangement: not detected 11q23 (KMT2A) Rearrangement: not detected inv(16) or t(16;16) CBFB::MYH11 Fusion: not detected INTERPRETATION There was no evidence of RPN1::MECOM fusion due to 3q21/3q26.2 inversion or translocation, deletion 5q31, monosomy 7, deletion 7q31, RUNX1::SZHX8Y2 fusion due to translocation (8;21)(q21.3;q22), 11p15 (NUP98) [...] represent benign/regenerative myeloblasts. Electronically signed Radiology Results XR ABD OBSTRUCTION SERIES 2VW Result Date: 10/02/2023 IMPRESSION: Paucity of bowel gas. No pneumoperitoneum. Report dictated by Haleigh Mosquera MD (assistant professor of radiology). I, Fabien Yin DO have personally reviewed and interpreted this examination/study. > Interpreting Provider: Fabien Yin DO on 10/02/2023 9:26 AM FL LUMBAR PUNCT FOR CHEMO INJ Result Date: 10/01/2023 IMPRESSION: 1. Successful lumbar puncture under fluoroscopic guidance at level L4-5. 2. Successful injection of intrathecal chemotherapeutic agent. Report dictated by Sivakumar Garrido DO (Video Arcade Manager). Attending Physician: Dr. Augustine Davison Cvt Rn: Dr. Sivakumar Garrido DO (Video Arcade Manager). The procedure was performed by the: The bacteriology research assistant, and the attending radiologist was present for all critical and aguirre portions of the procedure, and was immediately available to furnish services during the entire procedure. The attending radiologist performed the following procedural activities: IDr. Augustine was there and supervised aguirre portions of the procedure, not scrubbed. Augustine Bartholomew MD have personally reviewed and interpreted this examination/study. > Interpreting Provider: Augustine Davison MD on 10/01/2023 4:[address] HEAD WO CONTRAST Result Date: 10/01/2023 IMPRESSION: A tiny amount of subarachnoid hemorrhage in the right central sulcus is less conspicuous, suggesting evolution. Report dictated by Sivakumar Garrido DO (Video Arcade Manager). Romie Bartholomew MD have personally reviewed and interpreted this examination/study. > Interpreting Provider: Romie Sanchez MD on 10/01/2023 11:[address] ANGIO BRAIN AND NECK Result Date: 10/01/2023 IMPRESSION: 1.Previously described trace volume of subarachnoid hemorrhage within the right centralsulcus is not well appreciated on the current study. No evidence of acute intracranial hemorrhage on the current study. There appears to be some vascularity within the right central sulcus, likely the source of the signal seen on the prior MRI. Findings are nonspecific and could represent a variantvenous structure with slow flow. If there is clinical concern, follow-up imaging could be obtained for further evaluation. 2.Findings compatible with idiopathic intracranial hypertension, AKA pseudotumor cerebri. Clinical correlation is recommended. 3.No large arterial occlusions or significant sten oses identified in the head or neck. 4.Heterogeneous [...] verification. Report dictated by Steve Street M.D. (assistant professor of radiology) 10/01/2023 12:40 AM Augustine Bartholomew MD have personally reviewed and interpreted this examination/study. > Interpreting Provider: Augustine Davison MD on 10/01/2023 8:[address] HEAD WO CONTRAST Result Date: 09/30/2023 IMPRESSION: Redemonstration of a tiny amount of subarachnoid hemorrhage in the right central sulcus. These findings were discussed in detail with the patient's care provider, Dr. Tan by Dr. Sanchez via telephone at 4:43 PM on 09/30/2023 with readback comprehension and verification. Report dictated by Sivakumar Garrido DO (Video Arcade Manager). I, Romie Sanchez MD have personally reviewed and interpreted this examination/study. > Interpreting Provider: Romie Sanchez MD on 09/30/2023 4:43 PM ASSESSMENT Selvin Mckeon is a 38 year old female who transferred to [facility] on 09/03/2023 for suspected AML. Patient started 7 + 3 (cytarabine and idarubicin) on 09/06/2023. 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 F on 09/22 #Tachycardia #Acute respiratory failure with hypoxia, resolved -Suspected to be due to atelectasis, anemia, possible pulmonary embolism, hypophosphatemia -CT chest PE-Suboptimal evaluation of the pulmonary arteries given phase of contrast. However, within the limitations of this examination, there is suggestion of a small nonocclusive pulmonary embolus in a segmental/subsegmental right lower lobe pulmonary artery. -Duplex venous ultrasound negative for DVT -Blood cx 09/22 no growth at 5 days -CXR 09/28 with unchanged diffuse interstitial prominence, could represent pulmonary vascular congestion and/or interstitial pneumonia no pleural effusion or pneumothorax RECOMMENDATIONS -10/01 BM bx results so far showing remission (minimal residual disease testing still pending) so proceeding w/ HiDAC (high-dose cytarabine) consolidation chemo today. Dosing as detailed in [place] protocol will be 3 g q12 hr on days 1, 3, and 5. -Tentative plan for repeat lumbar puncture on Friday, 10/06 for intrathecal methotrexate and openingpressure measurement -CSF studies from LP 10/01 with intrathecal cytarabine cytology shows no leukemia involvement -Appreciate neuro, NSGY, ophtho, and rad onc input -Continue Valtrex for OI ppx and now on Decadron eye drops for conjunctivitis ppx while on high-dose cytarabine -Daily CBC w/diff, CMP -Daily weights -Transfusion parameters: (Leukoreduced and irradiated blood products)pRBC to keep Hgb >7 if hemodynamically stable and no bleeding. PLT transfusion to keep PLT >50K at this time due to (small) SAH and no upcoming NSGY intervention planned. PLT~100K is adequate for neurosurgical interventions.Fibrinogen > 100 -PRN anti-emetics -Would not recommend anticoagulation given low suspicion for PE, diagnostic imaging nonconclusive. Additionally she has thrombocytopenia. -Dr. Carias will be primary- patient will need outpatient follow up scheduled prior to discharge. Thank you for the opportunity to participate in the care of this patient. Please don't hesitate to contact heme/onc consult fellow via the warping mill operator or AMION if any clarifications needed or any questions. Plan was discussed with hematology/oncology attending. Tiana Burciaga DO, PGY-4 Hematology/Oncology Fellow [facility] I personally evaluated and examined Selvin Mckeon. I confirmed the aguirre elements of of history and physical examination. I also discussed the assessment and plan in detail with the team on rounds and with the patient. I made some modifications to the above note. I fully concur with the above assessment and plan. Maribel Stafford MD [facility] Department of Internal Medicine Division of Hematology Oncology ' ST REPRESENTATIVE * Valentín Mckeon RN - 10/04/2023 5:54 AM CST Problem: Infection Goal: Signs and symptoms of infections are decreased or avoided Outcome: Progressing Problem: Pain/Discomfort Goal: Patient exhibits reduced pain/discomfort as evidenced by pain scores Outcome: Progressing Problem: Fall Risk Goal: Fall risk and fall related injury risk are minimized (interventions related to the fall risk can be found in the flowsheet documentation) Outcome: Progressing Problem: Hemodynamic Status/Cardiac Output Goal: Patient has stable vital signs and fluid balance Outcome: Progressing ST REPRESENTATIVE * Justin Moon RN - 10/03/2023 4:25 PM CST Care Coordination Progress Note Anticipated level of care at discharge: Home: Anticipated level of care provider: None: Anticipated Discharge Date: 10/10/23: Discharge Plan: Return home when stable. Pending repeat LP Friday 10/06, HiDAC chemo, BMBx, Neuro consult Orientation Level: Oriented X4: Family Support (Name and Phone): Extended Emergency Contact Information Primary Emergency Contact: Raheem Lai Mobile Relation: Significant other Secondary Emergency Contact: French Rosenthal Mobile Relation: Friend [employer] Field Processing Supervisor needed? No Transportation at Discharge: Friend: READMISSION RISK SCORE is 8 at 4:25 PM 10/03/2023.: Name: Justin Moon RN ST REPRESENTATIVE * Dano Jean MD - 10/03/2023 2:28 PM CST Images from the original note were not included. 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 She reports floaters in the right eye but denies vision loss, flashes, or veil OU. She denies pain, redness OU. Interval history: States vision is stable, floaters are unchanged, no flashes, no dark curtains. Denies eye pain. Review of Systems Positives in bold - General: fevers, night sweats, weight loss - Neuro: headache, weakness/numbness/tingling, hearingloss, cognitive changes - ENT: oral ulcers, sinusitis, ear/nose deformities - Skin: rashes, poliosis, madarosis, vitiligo, erythema nodosum - Pulm: SOB/THOMPSON, cough, hemoptysis - Cardiac: chest pain, pa lpitations - GI: diarrhea, ulcers - : genital lesions, discharge, blood in urine - MSK: arthralgias, low back pain Other ROS negative beyond pertinent positives and negatives in HPI Past Medical/Surgical History Past Medical History: Diagnosis Date ??? NEGATIVE PAST MEDICAL HISTORY - SEE PROBLEM LIST Past ocular history: denies eye surgery, laser procedures, vision correction. Denies history of strabismus. Past Family History [] blindness [] glaucoma [] Other (please list) Family History Family history unknown: Yes Social History Noncontributory Allergies No Known Allergies Objective Base Eye Exam Visual Acuity (Snellen - Linear) Right Left Near sc 20/20 20/20 Tonometry (Palpation, 2:27 PM) Right Left Pressure Soft Soft Pupils Pupils Dark Light Shape React APD Right PERRL 5 2 Round Brisk None Left PERRL 5 2 Round Brisk None Visual Hurt Left Right Full Full Extraocular Movement Right Left 0 0 0 0 0 0 0 0 0 0 0 0 0 0 0 0 Neuro/Psych Oriented x3: Yes Mood/Affect: Normal Dilation Both eyes: 1.0% Mydriacyl, 1.0% Cyclogyl @ 2:27 PM Additional Tests Color Right Left Ishihara [...] PVD Normal Fundus Exam Right Left Disc Grade 1-2 Disc edema vs infiltrate with peripapillary hemorrhages Grade 1-2 Disc edema vs infiltrate with peripapillary hemorrhages Macula Small white retinal lesions, birmingham spot Small white retinal lesions, birmingham spot Vessels dilated and tortuous dilated and tortuous Periphery subILM heme, preretinal and intraretinal hemorrhages, inferotemporal birmingham spot preretinaland intraretinal hemorrhages, inferior birmingham spot HVF above OD:dissimilar pattern from prior, nasal defect spanning the horizontal midline, unreliable. Fovea: 36 db (improved), VFI: 92% (stable), MD: -5.16 (mildly worse from 4.9) OS: Smaller ST field defects, no longer involving the central vision. More reliable. Fovea: 36 (improved), VFI: 91% (improved), MD-5.0 from -4.6 RNFL: 180->175, 257->165 (with heavy segmentation error today and previous OCT). Assessment/Plan Selvin Mckeon is a 38 year old femaleconsulted for new onset floaters OD. Optic Disc elevation OU Likely papilledema Elevated discs OU with worsening today from [...] no thrombosis, stenosis of multiple sinuses c/w IIH Interval: HVF unreliable and no clear pattern of retrochiasmal involvement with likely artifact of testing, OCT nerve stable from previous avg RNFLthinner today RNFL: 180->175, 257->165 (with heavy segmentation error today and previous OCT). Visual function remains minimally affected if at all. VA: 20/20, Color vision full. Visual field largely unchanged from prior. - Leukemic infiltrate vs IIH as a cause of increased ICP will treat empirically with stable to improving disc edema on exam-- to prevent vision loss. ? 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 - So far likely etiology is leukemic infiltration of the nerve retina vs. Possible infectious etiology vs other drusenoid accumulation. Will repeat DFE tomorrow with Dr. Hobson to assess ?? Recommendations: - Continue acetazolamide to 1000mg ER BID if cleared by primary team - Will have the patient in the clinic on Friday10/06/23 at 8:30 for testing in the ophthalmology clinic if primary team okay with this, please arrange transport for this if possible. - FOLLOW-UP PLAN: Call prior to discharging pt for follow-up. Pt should not be discharged prior to ophthalmology arranging follow-up. Seen independently by me. Dano Jean MD Ophthalmology Resident 10/03/2023 2:[address] REPRESENTATIVE Associated attestation - Song Hobson MD - 10/05/2023 9:59 PM ARTIST REPRESENTATIVE I have reviewed the resident note, the documented assessment and plan, and all associated tests, labs, and imaging. I have personally examined the patient with the resident, and have revised the above note to document my findings/assessment/plan. Assessment and instructions were reviewed with the patient or family, medications were ordered as appropriate, and follow up appointments were scheduled. Patient and/or family verbalized their understanding of the above assessment/plan, and all questions were answered. Song Hobson MD, PhD Attending, Cornea and Anterior Segment Service Date of Service: 10/03/2023 * Gaurav Moyer - 10/03/2023 2:09 PM CST Music Therapy Progress Note Start Time: 1030 End Time: 1105 Music Therapy Goals: Increase relaxation, Increase appropriate sensory stimulation and Increase meaningful social interaction Intervention Provided: Provide familiar / significant music and Provide opportunities for social interaction Therapy Type: Individual Therapy Patient Response: Appropriate Affect: Mood, appropriate Treatment Modality: Music Therapy Music Therapist Gaurav Moyer visited patient in [facility] room. Patient was observed sitting up in chair, alert and oriented. During interventions, Patient made eye contact, moved in time with the music, sang, and breathed slowly and deeply. At conclusion of session, no nonverbal indicators of distress observed. Gaurav Moyer, [facility], [place] 10/03/2023 2:[address] REPRESENTATIVE * Frankie Braswell - 10/03/2023 12:51 PM CST Neurology Progress Note Patient: Selvin Mckeon Room: 721 Age: [age] year old Subjective: Selvin Mckeon is a 38 year old female with no significant PMH who presented on 09/03/24 for fever and flu-like symptoms. 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 Initiation was started with 7+3 (cytarabine and indarubicin) c/b acute respiratory failure w/ hypoxia and sinus tachycardia. Respiratory failure treated with nasal canula and is resolved. On 09/28/23 patient reported new floaters bilaterally worse in her right eye. She denies ocular pain, reduced vision, headaches, nausea, vomiting. MRI brain and orbits was done showing partially empty sella w/ concern for possible IIH. Opthalmology examined her and noted papilledema and retinal hemorrhages. They are concerned for leukemic infiltrate vs IIH. Patient underwent LP w/ IT cytarabine 100mg on 10/01, no opening pressure measured. Cyto logies were sent and pending. 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 Patient started on diamox 500mg BID. Most recent opthalmology examination showed improvement of papilledema and diamox was uptitrated to 1000mg BID. Neurology consulted for concern for IIH. Overnight: No overnight activities. Objective: BP 125/81 (BP Cuff Size: A) Pulse 93 Temp 97.8 ??F (36.6 ??C) (Oral) Resp 16 Ht 1.575 m (5'2 ) Wt 113.4 kg (250 lb 0.4 oz) SpO2 100% Temp (30hrs) Max:97.9 ??F (36.6 ??C) Body mass index is 45.73 kg/m??. Exam: General: Con - NAD, afebrile Heent - NCAT, MMM, anicteric Neck - No JVD, LAD, trachea midline CV - RRR for age, normal s1/s2, no m/r/g Pulm - CTAB, no w/r/r Abd - BS+, soft, NTND Ext: No c/c/e, 2+ dpp, normal ROM Cortical Function Mental Status Awake, alert, follows commands Orientation Person, place, time, and situation Language Fluency intact, comprehension intact, repetition intact Visual Hurt Intact bilaterally to confrontation Neglect No visual neglect noted, no tactile neglect noted Cranial Nerves II Pupils 4 mm and bilaterally reactive to light. Fundoscopic exam not performed. VIII Hearing is intact bilaterally to finger rub. III/IV/ Extraocular muscles intact. No diplopia, ptosis, nystagmus or convergence abnormalities noted. IX/X Palate elevated symmetrically without phonation abnormalities noted. V Facial sensation symmetric to light touch and intact bilaterally. Corneal reflex not examined. XIHead turning and shoulder shrug are intact. VII No facial palsy noted. XII Tongue is midline with normal movements and no atrophy noted. Motor Function Movement No abnormalities noted Bulk No abnormalities noted Tone No abnormalities noted Proximal Upper Distal Upper Proximal Lower Distal Lower Right 5/5 5/5 5/5 5/5 Left 5/5 5/5 5/5 5/5 Muscle Stretch Reflexes BI TRI BR PAT ACH TOES Right 3 3 3 3 3 Down Left 3 3 3 3 3 Down Sensory Light Touch Symmetric and intact bilaterally Noxious Stimuli Symmetric and intact bilaterally Temperature Not tested Pallesthesia Not tested Cerebellar FNF HOWIE HKS Right Intact Deferred Intact Left Intact Deferred Intact Gait Deferred Labs: Results for orders placed or performed during the hospital encounter of 09/03/23 (from the past 24 hour(s)) GLUCOSE - POINT OF CARE Result Value Ref Range Glucose WB/POC 83 70 - 115 mg/dL Specimen Type Cap Fingerstick GLUCOSE - POINT OF CARE Result Value Ref Range Glucose WB/POC 75 70 - 115 mg/dL Specimen Type Cap Fingerstick GLUCOSE - POINT OF CARE Result Value Ref Range Glucose WB/POC 80 70 - 115 mg/dL Specimen Type Arterial COMPREHENSIVE METABOLIC PANEL Result Value Ref Range BUN 6 (L) 7 - 26 mg/dL Creatinine 0.63 0.56 - 0.96 mg/dL Sodium 139 136 - 145 mmol/L Potassium 3.2 (L) 3.5 - 4.5 mmol/L Chloride 112 (H) 98 - 107 mmol/L CO2 19 (L) 22 - 29 mmol/L Glucose 87 70 - 115 mg/dL Calcium 8.8 8.4 - 10.2 mg/dL Protein Total 6.2 6.0 - 8.3 g/dL Albumin 2.8 (L) 3.4 - 5.0 g/dL Bilirubin Total 0.3 0.2 - 1.2 mg/dL Alkaline Phosphatase 61 40 - 150 U/L ALT 43 5 - 55 U/L AST 45 (H) 5 - 34 U/L Anion Gap 8 6 - 16 BUN/Creatinine Ratio 10 7 - 23 Osmolality Calculated 285 275 - 295 mOsm/kg Albumin/Globulin Ratio 0.8 (L) 1.1 - 2.3 eGFR by CKD-EPI >90 >=90 mL/min/1.73 m2 MAGNESIUM BLOOD Result Value Ref Range Magnesium 2.0 1.6 - 2.6 mg/dL PHOSPHORUS BLOOD Result Value Ref Range Phosphorus 3.5 2.9 - 5.1 mg/dL CBC W AUTO DIFFERENTIAL Result Value Ref Range WBC 4.1 4.0 - 10.7 x10E9/L RBC Count 2.33 (L) 3.90 - 5.20 x10E12/L Hemoglobin 7.2 (L) 11.9 - 15.8 g/dL Hematocrit 21.0 (L) 34.8 - 46.1 % MCV 90.1 80.0 - 98.0 fL MCH 30.9 26.7 - 33.6 pg MCHC 34.3 31.7 - 36.3 g/dL RDW-CV 14.1 11.3 - 14.8 % Platelet Count 127 (L) 150 - 420 x10E9/L MPV 10.6 7.8 - 11.4 fL Preliminary Absolute Neutrophil 1.24 (L) 1.60 - 7.50 x10E9/L NRBC 0.7 (H) <=0.0 /100 WBC FIBRINOGEN ACTIVITY Result Value Ref Range Fibrinogen Clauss 333 200 - 400 mg/dL DIFFERENTIAL MANUAL Result Value Ref Range Neutrophil % 33 (L) 41 - 74 % Band Neutrophil % 5 % Lymphocyte % 36 17 - 47 % Monocyte % 20 (H) 3 - 11 % Metamyelocyte % 3 (H) 0% % Myelocyte % 3 (H) 0% % Neutrophil Absolute 1.56 (L) 1.60 - 7.50 x10E9/L Lymphocyte Absolute 1.48 1.00 - 4.40 x10E9/L Monocyte Absolute 0.82 0.15 - 1.00 x10E9/L RBC Morphology REVIEWED GLUCOSE - POINT OF CARE Result Value Ref Range Glucose WB/POC 89 70 - 115 mg/dL Specimen Type Cap Fingerstick GLUCOSE - POINT OF CARE Result Value Ref Range Glucose WB/POC 83 70 - 115 mg/dL Specimen Type Cap Fingerstick Neuroimaging: CTA Brain and Neck 10/01/23 1.Previously described trace volume of subarachnoid hemorrhage. No evidence of acute intracranial hemorrhage on the current study. 2.Findings compatible with idiopathic intracranial hypertension, AKA pseudotumor cerebri. Clinical correlation is recommended. CTH WO Contrast 10/01/23 1. A tiny amount of subarachnoid hemorrhage in the right central sulcus is less conspicuous, suggesting evolution. MRI Orbits OR Face WWO Contrast 09/29/23 1. No acute intracranial abnormality. No areas of abnormal contrast enhancement within the limits of the study. 2.Limited evaluation of the orbits images due to motion artifact. Within this limitation no acute finding is seen within orbits. Slight tortuous course of the bilateral optic nerves, partially empty sella appearance could be normal variant ,however could also be seen in the setting of idiopathic intracranial hypertension. MRI Brain WWO Contrast 09/29/23 1. No acute intracranial abnormality. No areas of abnormal contrast enhancement within the limits of the study. 2.Limited evaluation of the orbits images due to motion artifact. Within this limitation no acute finding is seen within orbits. Slight tortuous course of the bilateral optic nerves, partially empty sella appearance could be normal variant ,however could also be seen in the setting of idiopathic intracranial hypertension. 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 DDx 1) IIH - b/l papilledema and retinal hemorrhage with empty sella on neuro imaging are suggestive ofpossible IIH. Opening pressure was not gather during LP. Holding methylprogesterone as possible contributor to increased ICP. IIH is associated with anemia (A,B). Although rare, AML can present w/ isolated intracranial hypertension (C). Please Please see the following studies: A. Https://pubmed.ncbi.nlm.nih.gov/22901784/ B. https://journals.lww.com/jneuro-ophthalmology/fulltext/2021/64948/anemia_and_idi opathic_intracranial_hypertension__a.33.aspx C. https://www.ncbi.nlm.nih.gov/pmc/articles/KGT0748696/#:~:text=AML%20presenting%2 0with%20isolated%20intracranial,presenting%20as%20IIH%20with%20papilledema 2) Leukemic retinopathy - Ocular findings are common in acute leukemias with retinal hemorrhages and birmingham spots being the most common. Both of which were visualized on fundoscopy. 3) Direct Leukemic Infiltrate - This is rare, present in only 3% of acute leukemia ocular findings. 4) Cavernous Sinus Thrombosis - MRV is pending. No CN findings or Wendi's syndrome noted on exam. 5) Terson Syndrome - CT and MRI notable for trace SAH which is the most common association with TS.Opthalmology evaluation deemed this less likely. Plan: 1. Will recheck LP for opening pressure and routine labs, glucose, protein, cell count, meningitis panel, gram stain. 2. MRV is pending 3. Agree w/ diamox w/ uptitration Inpatient Checklist: Lines: PIV Prophylaxis: Diet: Clear Liquid Activity: Activity as tolerated Code status: Full Code Disposition: Inpatient monitoring Discussed Assessment and Plan with Attending Physician, Frankie Braswell MS3 ST REPRESENTATIVE * Juana Verduzco RN - 10/03/2023 10:56 AM CST Problem: Infection Goal: Signs and symptoms of infections are decreased or avoided Outcome: Progressing Problem: Pain/Discomfort Goal: Patient exhibits reduced pain/discomfort as evidenced by pain scores Outcome: Progressing Problem: Fall Risk Goal: Fall risk and fall related injury risk are minimized (interventions related to the fall risk can be found in the flowsheet documentation) Outcome: Progressing Problem: Hemodynamic Status/Cardiac Output Goal: Patient has stable vital signs and fluid balance Outcome: Progressing Problem: Nutrient: Increased nutrient needs (specify) Goal: Total intake will meet estimated nutrient needs Outcome: Progressing ST REPRESENTATIVE * Med Hodges DO - 10/03/2023 8:47 AM CST [facility] Medicine Daily Progress Note Name: Selvin Mckeon Age: [age] year old Room: 721/ Date Admitted: 09/03/2023 Hospital Course: Selvin Mckeon is a 38 year old female with no significant past medical history who presented on 09/03 with fatigue and flu-like symptoms. She was found to have AML and is undergoing induction therapywith 7+3. Hospital course c/b persistent tachycardia, neutropenic fever, and hypoxia. Hospital course c/b leukemic infiltrates on fundoscopic exam. Interval History: Pt doing well this AM. No complaints. Objective: Patient Vitals for the past 6 hrs: Temp Pulse Resp BP BP Method 10/03/23 0749 97.8 ??F (36.6 ??C) 99 18 126/97 Automatic 10/03/23 0543 97.9 ??F (36.6 ??C) 106 16 133/82 -- Estimated body mass index is 45.73 kg/m?? as calculated from the following: Height as of this encounter: 1.575 m (5' 2 ). Weight as of this encounter: 113.4 kg (250 lb 0.4 oz). O: Gen: NAD CV: RRR no M Resp: CTAB Labs: Recent Labs Component Name 10/02/23213109/14/23214909/13/232051 WBC 4.1 - 0.5* HGB 7.2* - 7.4* HCT 21.0* - 20.0* NA 139 - 138 CL 112* - 108* BUN 6* - 10 CREATININE 0.63 - 0.66 PHOS 3.5 - - CALCIUM 8.8 - 8.4 PT - - 13.1 INR - - 1.0 AST 45* - 15 ALT 43 - 40 ALKPHOS 61 - 55 TBILI 0.3 - 0.5 - = values in this interval not displayed. 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 (CMS-HCC) (POA: Yes) Pancytopenia (CMS-HCC) (POA: Yes) Tonsillitis (POA: Yes) Acute hypoxic respiratory failure (CMS-HCC) (POA: No) Pulmonary edema (POA: No) Febrile neutropenia (CMS-HCC) (POA: No) #AML c/b pancytopenia and febrile neutropenia BMBx at [place] with 78% blasts, final report with 90% blast consistent with AML Day 14 BMBx without evidence of residual AML - D22 7+3 - medroxyprogesterone d/abbie - monitor daily labs, transfuse plt <20, Hgb <7; both leukoreduced and irradiated blood if needed - continue Valtrex for OI prophylaxis #Acute onset floaters, 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 Recs include repeat LP w/ opening pressure and d/cing Medoxyprogesterone. -Ophthalmology following. Recommend IV Diamox. Will continue to monitor -Per Heme/Onc, will plan for repeat LP with Intrathecal Methotrexate on Friday. -Neuro following. Recommend LP w/ opening pressure. Orders for LP placed. Discussed w/ Radiology. -F/u on final read of MRV to r/o Venous Sinus Thrombosis Small volume SAH in right central sulcus -NSGY following. Will f/u with pt in clinic w/ in 4-6 weeks w/ CTH non con for imaging. #Acute respiratory failure with hypoxia, resolved #Sinus tachycardia, resolved - holding anticoagulation given elevated risk in setting of thrombocytopenia, once platelets recover will need reevaluation for need of AC vs repeat CT PE - repeat TTE with normal RV, continue telemetry - Suspect may be related to anemia #Back pain, improved -Ctm #Tonsillitis, resolved - status post course of augmentin FEN: Electrolytes replaced with goal of K>4, Phos>3, Mag>2. Diet: Regular PPx: holding chemical ppx in setting of thrombocytopenia Disposition: Inpatient Code Status: Full Pt seen and discussed with Dr.Wheeler Med Hodges, DO ST REPRESENTATIVE Associated attestation - Umair Tan MD - 10/03/2023 2:40 PM ARTIST REPRESENTATIVE I have seen and examined the patient with the resident and I agree with the findings and plan of care as documented by the resident. In addition: - continue treatment as per heme/onc - plan for LP on Friday with methotrexate intrathecal - advance diet to regular - appreciate neuro input on MRV Date of Service: 10/03/2023 Umair Tan MD * Remington Stafford MD - 10/03/2023 6:41 AM CST Images from the original note were not included. HEMATOLOGY/ONCOLOGY INPATIENT PROGRESS NOTE Name: Selvin Mckeon Age: [age] year old Date of : 1985 Date of Service: 10/03/2023 HEMATOLOGY & ONCOLOGY HISTORY Principal Diagnosis: AML, NPM-1 mut, fav risk Current Therapy: 7 + 3 (cytarabine and idarubicin) Prior Hematology/Oncology History: 09/02/2023: Bone marrow biopsy at [facility] which revealed 78% blasts likely AML. 09/03/2023: Patient transferred to [facility] for further care and evaluation. SUBJECTIVE History of Present Illness Chief Complaint: Concern for AML Interval History: Yesterday, patient consented for HiDAC. Plan for patient to start treatment today pending prelim bone marrow biopsy results. Bone marrow flow cytometry 10/01 with no immunophenotypic evidence of residual acute myeloid leukemia, no evidence of monoclonal B-cells or plasma cell neoplasm. CSF cytology still pending. Neurology consult yesterday with recommended repeat LP, MRV brain, and stopping medroxyprogesterone when able. Ophthalmology and Radiation oncology continuing to follow. This AM, patient resting comfortably in bed. She reports feeling tired from being woken up throughout the night and is hoping to get some rest today. She denies headache, changes in vision, fever, chills, chest pain, SOB, abdominal pain, or increased leg swelling. ANC 1353 from 1927. Review of Systems: As noted in HPI. All other systems reviewed and negative. Past Medical & Surgical History Patient Active Problem List Diagnosis Acute hypoxic respiratory failure (CMS-HCC) Pulmonary edema Febrile neutropenia (CMS-HCC) Pancytopenia (CMS-HCC) Tonsillitis 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 ([facility]-HCC) Past Medical History: Diagnosis Date NEGATIVE PAST MEDICAL HISTORY - SEE PROBLEM LIST Past Surgical History: Procedure Laterality Date Section Cholecystectomy KIDNEY STONES, REMOVAL Past Oncology History Cancer Staging No matching staging information was found for the patient. Oncology History No history exists. Active Treatment Days for Selvin Mckeon (until 10/04/2023) 10/03/2023 ONCOLOGY TREATMENT: IP AML CONSOLIDATION - AGE <60 (HIGH DOSE CYTARABINE)(SANDHU HIDAC) Day 1, Cycle 1 (Planned) Pre-Medications: ondansetron (Zofran) injection 8 mg, dexAMETHasone (Decadron) injection 8 mg Chemotherapy: cytarabine (Cytosar) 6,700 mg in 0.9% NaCl IV 567 mL infusion Supportive Care: dexAMETHasone (Decadron) 0.1 % ophthalmic suspension 2 drop, famotidine (Pepcid) tablet 20 mg, prochlorperazine (Compazine) tablet 10 mg, prochlorperazine (Compazine) injection 5 mg,ondansetron (disintegrating) (Zofran ODT) tablet 8 mg, ondansetron (Zofran) injection 8 mg, levoFLOXacin (Levaquin) tablet 500 mg, valACYclovir (Valtrex) tablet 500 mg Social History Social History Tobacco Use Smoking status: Former Packs/day: 1 Types: Cigarettes Start date: 2004 Quit date: 2010 Years since quittin.0 Smokeless tobacco: Never Substance Use Topics Alcohol use: Yes Comment: occasional Family History Family History Family history unknown: Yes Medications SCHEDULED MEDICATIONS: 0.9% NaCl injection 3 mL, Intracatheter, q8h acetaZOLAMIDE ER 12hr (Diamox Sequel) capsule 1,000 mg, Oral, BID famotidine (Pepcid) tablet 20 mg, Oral, BID gadobutrol (Gadavist) injection, Intravenous, Contrast - Once insulin aspart (NovoLOG) pen 0-6 Units, Subcutaneous, TID WC medroxyPROGESTERone (Provera) tablet 10 mg, Oral, QDAY perflutren lipid microsphere (Definity) injection 0.5 mL, Intravenous, intra- Procedure multiple valACYclovir (Valtrex) tablet 500 mg, Oral, BID [COMPLETED] potassium chloride ER (Klor-Con M) tablet 40 mEq, Oral, Once [COMPLETED] sodium - potassium phosphates (K Phos Neutral) tablet 2 tablet, Oral, Once [] iopamidol (Isovue 370) 76 % contrast, Intravenous, Contrast - Once CONTINUOUS MEDICATIONS: PRN MEDICATIONS: Or Or 0.9% NaCl injection 1-10 mL, Intracatheter, PRN acetaminophen (Tylenol) tablet 650 mg, Oral, q6h PRN ALPRAZolam (Xanax) tablet 0.25 mg, Oral, BID PRN dextrose 10 % IV bolus, Intravenous, PRN dextrose 10 % IV bolus, Intravenous, PRN dicyclomine (Bentyl) tablet 20 mg, Oral, TID PRN docusate sodium (Colace) solution 50 mg, Oral, AT BEDTIME PRN glucagon (Glucagen) injection 1 mg, Subcutaneous, PRN glucose (Diabetic Use) oral gel, Oral, PRN guaiFENesin (Robitussin) solution 10 mL, Oral, q6h PRN heparin lock flush injection 500 Units, Intracatheter, PRN melatonin tablet 3 mg, Oral, AT BEDTIME PRN ondansetron (disintegrating) (Zofran ODT) tablet 8 mg, Oral, BID PRN ondansetron (Zofran) injection 8 mg, Intravenous, BID PRN oxyCODONE (immediate release) (Roxicodone) tablet 5 mg, Oral, q6h PRN prochlorperazine (Compazine) injection 5 mg, Intravenous, q6h PRN simethicone (Mylicon) chew tablet 80 mg, Oral, 4X/day PRN Allergies No Known Allergies OBJECTIVE Physical Exam Vitals: 10/02/23 2058 10/03/23 0038 10/03/23 0543 10/03/23 0548 BP: 133/88 135/81 133/82 Pulse: 98 85 106 Resp: 18 16 16 Temp: 97.8 ??F (36.6 ??C) 97.6 ??F (36.4 ??C) 97.9 ??F (36.6 ??C) SpO2: 100% 98% 99% Weight: 113.4 kg (250 lb 0.4 oz) Height: Wt Readings from Last 3 Encounters: 10/03/23 113.4 kg (250 lb 0.4 oz) ECO General: Resting comfortably in bed, no acute distress Heart: Normal S1, S2. Regular rate and rhythm. Lungs: Symmetric chest rise, clear to auscultation bilaterally Abdomen: Soft, nontender, nondistended. Bowel sounds present. Extremities: 1+ bilateral lower extremity edema slightly decreased from yesterday Skin: Warm, dry. Psychiatric: Cooperative. Appropriate mood and affect. Laboratory Results Recent Labs Component Name 10/02/23213110/01/23211809/30/232008 WBC 4.1 4.1 4.1 RBC 2.33* 2.36* 2.32* HGB 7.2* 7.3* 7.1* HCT 21.0* 21.5* 20.4* MCV 90.1 91.1 87.9 MCHC 34.3 34.0 34.8 PLTCOUNT 127* 110* 97* NEUTABS 1.24* 1.56* 1.06* 1.93 0.82* 1.15* LYMPHABS 1.48 1.11 1.80 Recent Labs Component Name 10/02/23213110/01/23211809/30/232008 POTASSIUM 3.2* 3.5 3.3* CO2 19* 21* 23 BUN 6* <5* 6* CREATININE 0.63 0.53* 0.56 EGFR >90 >90 >90 GLUCOSE 87 95 112 CALCIUM 8.8 8.4 8.7 MAGNESIUM 2.0 2.0 2.0 PHOS 3.5 2.6* 2.3* ALT 43 29 19 AST 45* 38* 21 ALKPHOS 61 58 57 Pathology Results RESULT Normal FISH Result inv(3) or t(3;3) RPN1::MECOM Fusion: not detected Deletion 5q: not detected Monosomy 7: not detected Deletion 7q: not detected t(8;21) RUNX1::JQIW2A7 Fusion: not detected 11p15 (NUP98) Rearrangement: not detected 11q23 (KMT2A) Rearrangement: not detected inv(16) or t(16;16) CBFB::MYH11 Fusion: not detected INTERPRETATION There was no evidence of RPN1::MECOM fusion due to 3q21/3q26.2 inversion or translocation, deletion 5q31, monosomy 7, deletion 7q31, RUNX1::NMOC6E5 fusion due to translocation (8;21)(q21.3;q22), 11p15 (NUP98) [...] represent benign/regenerative myeloblasts. Electronically signed Radiology Results XR ABD OBSTRUCTION SERIES 2VW Result Date: 10/02/2023 IMPRESSION: Paucity of bowel gas. No pneumoperitoneum. Report dictated by Haleigh Mosquera MD (assistant professor of radiology). Fabien Bartholomew DO have personally reviewed and interpreted this examination/study. > Interpreting Provider: Fabien Yin DO on 10/02/2023 9:26 AM FL LUMBAR PUNCT FOR CHEMO INJ Result Date: 10/01/2023 IMPRESSION: 1. Successful lumbar puncture under fluoroscopic guidance at level L4-5. 2. Successful injection of intrathecal chemotherapeutic agent. Report dictated by Sivakumar Garrido DO (Video Arcade Manager). Attending Physician: Dr. Augustine Davison Cvt Rn: Dr. Sivakumar Garrido DO (Video Arcade Manager). The procedure was performed by the: The bacteriology research assistant, and the attending radiologist was present for all critical and aguirre portions of the procedure, and was immediately available to furnish services during the entire procedure. The attending radiologist performed the following procedural activities: IDr. Augustine was there and supervised aguirre portions of the procedure, not scrubbed. Augustine Bartholomew MD have personally reviewed and interpreted this examination/study. > Interpreting Provider: Augustine Davison MD on 10/01/2023 4:[address] HEAD WO CONTRAST Result Date: 10/01/2023 IMPRESSION: A tiny amount of subarachnoid hemorrhage in the right central sulcus is less conspicuous, suggesting evolution. Report dictated by Sivakumar Garrido DO (Video Arcade Manager). Romie Bartholomew MD have personally reviewed and interpreted this examination/study. > Interpreting Provider: Romie Sanchez MD on 10/01/2023 11:[address] ANGIO BRAIN AND NECK Result Date: 10/01/2023 IMPRESSION: 1.Previously described trace volume of subarachnoid hemorrhage within the right centralsulcus is not well appreciated on the current study. No evidence of acute intracranial hemorrhage on the current study. There appears to be some vascularity within the right central sulcus, likely the source of the signal seen on the prior MRI. Findings are nonspecific and could represent a variantvenous structure with slow flow. If there is clinical concern, follow-up imaging could be obtained for further evaluation. 2.Findings compatible with idiopathic intracranial hypertension, AKA pseudotumor cerebri. Clinical correlation is recommended. 3.No large arterial occlusions or significant sten oses identified in the head or neck. 4.Heterogeneous [...] verification. Report dictated by Steve Street M.D. (assistant professor of radiology) 10/01/2023 12:40 AM IAugustine MD have personally reviewed and interpreted this examination/study. > Interpreting Provider: Augustine Davison MD on 10/01/2023 8:[address] HEAD WO CONTRAST Result Date: 09/30/2023 IMPRESSION: Redemonstration of a tiny amount of subarachnoid hemorrhage in the right central sulcus. These findings were discussed in detail with the patient's care provider, Dr. Tan by Dr. Sanchez via telephone at 4:43 PM on 09/30/2023 with readback comprehension and verification. Report dictated by Sivakumar Garrido DO (Video Arcade Manager). Romie Bartholomew MD have personally reviewed and interpreted this examination/study. > Interpreting Provider: Romie Sanchez MD on 09/30/2023 4:43 PM ASSESSMENT Selvin Mckeon is a 38 year old female who transferred to [facility] on 09/03/2023 for suspected AML. Patient started 7 + 3 (cytarabine and idarubicin) on 09/06/2023. 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 F on 09/22 #Tachycardia #Acute respiratory failure with hypoxia, resolved -Suspected to be due to atelectasis, anemia, possible pulmonary embolism, hypophosphatemia -CT chest PE-Suboptimal evaluation of the pulmonary arteries given phase of contrast. However, within the limitations of this examination, there is suggestion of a small nonocclusive pulmonary embolus in a segmental/subsegmental right lower lobe pulmonary artery. -Duplex venous ultrasound negative for DVT -Blood cx 09/22 no growth at 5 days -CXR 09/28 with unchanged diffuse interstitial prominence, could represent pulmonary vascular congestion and/or interstitial pneumonia no pleural effusion or pneumothorax RECOMMENDATIONS -Tentative plan to start HiDAC pending results of bone marrow biopsy from 10/01, consent obtained -Tentative plan for repeat lumbar puncture on Friday, 10/06 for intrathecal methotrexate and openingpressure measurement -Follow-up CSF studies from LP 10/01 with intrathecal cytarabine -Okay to hold medroxyprogesterone unless patient with active bleeding per vagina -Follow-up Neurology recommendations -Follow-up Ophthalmology recommendations -Follow-up Radiation Oncology recommendations -Continue Valtrex for ppx -Daily CBC w/diff, CMP -Daily weights -Transfusion parameters: (Leukoreduced and irradiated blood products)pRBC to keep Hgb >7 if hemodynamically stable and no bleeding. PLT transfusion to keep PLT >50K at this time due to (small) SAH and no upcoming NSGY intervention planned. PLT~100K is adequate for neurosurgical interventions.Fibrinogen > 100 -PRN anti-emetics -Would not recommend anticoagulation given low suspicion for PE, diagnostic imaging nonconclusive. Additionally she has thrombocytopenia. -Dr. Carias will be primary- patient will need outpatient follow up scheduled prior to discharge. Patient discussed with Attending Dr. Stafford. Thank you for the opportunity to participate in the care of this patient. Hem/Onc consult service will continue to follow closely. Please don't hesitate to contact hem/onc consult fellow via the warping mill operator or AMION if any questions or clarifications. Linnette Antonio MS4 Hematology/Oncology Consult Service 10/03/2023 6:41 AM I personally evaluated and examined Selvin Mckeon. I confirmed the aguirre elements of of history and physical examination. I also discussed the assessment and plan in detail with the team on rounds and with the patient. I made some modifications to the above note. I fully concur with the above assessment and plan. Maribel Stafford MD [facility] Department of Internal Medicine Division of Hematology Oncology ST REPRESENTATIVE * Tiana Burciaga DO - 10/02/2023 4:14 PM CST Ms. Mckeon is a 38-year-old female w/ AML; please see progress note from today for further details.UPDATE: Extensive conversation w/ pt and her partner at the bedside this afternoon. Consented for upcoming HiDAC chemotherapy (first awaiting prelim BM bx results, likely tmrw) and answered their questions. Her partner, Roderick Fernández, requested to be notified for any patient updates, at [phone]. Will relay to primary team as well. Please don't hesitate to contact heme/onc consult fellow via the warping mill operator or AMION if any clarifications needed or any questions. Tiana Burciaga DO, PGY-4 Hematology/Oncology Fellow [facility] ST REPRESENTATIVE * Gaurav Moyer - 10/02/2023 3:06 PM CST Music Therapy Progress Note Start Time: 1405 End Time: 1440 Music Therapy Goals: Increase relaxation and Increase meaningful social interaction Intervention Provided: Provide familiar / significant music, Utilized iso- principle and Provide opportunities for social interaction Therapy Type: Individual Therapy Patient Response: Appropriate and Tearful Affect: Mood, appropriate Treatment Modality: Music Therapy Music Therapist Gaurav Moyer visited patient in [facility] room. Patient was observed sitting up in chair, alert and oriented. During interventions, Patient made eye contact, mouthed familiar lyrics, moved in time with the music, and demonstrated appropriate coping skills (ie was tearful). Patient engaged in emotional processing after each intervention. At conclusion of session, no nonverbal indicators of distress observed. Gaurav Moyer, ERLINDA, MT-BC 10/02/2023 3:[address] REPRESENTATIVE * Hina Wahl MD - 10/02/2023 2:42 PM CST Images from the original note were not included. 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 She reports floaters in the right eye but denies vision loss, flashes, or veil OU. She denies pain, redness OU. Interval history: States vision is stable, floaters are unchanged, no flashes, no dark curtains. Denies eye pain. Review of Systems Positives in bold - General: fevers, night sweats, weight loss - Neuro: headache, weakness/numbness/tingling, hearingloss, cognitive changes - ENT: oral ulcers, sinusitis, ear/nose deformities - Skin: rashes, poliosis, madarosis, vitiligo, erythema nodosum - Pulm: SOB/THOMPSON, cough, hemoptysis - Cardiac: chest pain, pa lpitations - GI: diarrhea, ulcers - : genital lesions, discharge, blood in urine - MSK: arthralgias, low back pain Other ROS negative beyond pertinent positives and negatives in HPI Past Medical/Surgical History Past Medical History: Diagnosis Date NEGATIVE PAST MEDICAL HISTORY - SEE PROBLEM LIST Past ocular history: denies eye surgery, laser procedures, vision correction. Denies history of strabismus. Past Family History [] blindness [] glaucoma [] Other (please list) Family History Family history unknown: Yes Social History Noncontributory Allergies No Known Allergies Objective Base Eye Exam Visual Acuity (Snellen - Linear) Right Left Near sc 20/20 20/20 Tonometry (Tonopen, 3:54 PM) Right Left Pressure 20 18 Pupils Pupils Dark Light Shape React APD Right PERRL 4 2 Round Brisk None Left PERRL 4 2 Round Brisk None Visual Hurt Left Right Full Full Extraocular Movement Right Left 0 0 0 0 0 0 0 0 0 0 0 0 0 0 0 0 Neuro/Psych Oriented x3: Yes Mood/Affect: Normal Dilation Both eyes: 1.0% Mydriacyl, 1.0% Cyclogyl @ 3:55 PM Additional Tests Color Right Left Ishihara 16/16 16/16 Slit Lamp and Fundus Exam External Exam Right Left External Normal Normal Portable Slit Lamp Exam Right Left Lids/Lashes Normal Normal Conjunctiva/Sclera White and quiet White and quiet Cornea Clear Clear Anterior Chamber Deep and quiet Deep and quiet Iris Round and reactive Round and reactive Lens Clear Clear Vitreous PVD Normal Fundus Exam Right Left Disc Grade 2-3 Disc edema vs infiltrate with peripapillary hemorrhages Grade 2-3 Disc edema vs infiltrate with peripapillary hemorrhages HVF above OD:dissimilar pattern from prior, nasal defect spanning the horizontal midline, unreliable. Fovea: 36 db (improved), VFI: 92% (stable), MD: -5.16 (mildly worse from 4.9) OS: Smaller ST field defects, no longer involving the central vision. More reliable. Fovea: 36 (improved), VFI: 91% (improved), MD-5.0 from -4.6 RNFL: 180->175, 257->165 (with heavy segmentation error today and previous OCT). Assessment/Plan Selvin Mckeon is a 38 year old femaleconsulted for new onset floaters OD. Optic Disc elevation OU Likely papilledema Elevated discs OU with worsening today from [...] opening pressure of LP was unmeasured 10/01/23. Interval: HVF unreliable and no clear pattern of retrochiasmal involvement with likely artifact of testing, OCT nerve stable from previous avg RNFLthinner today RNFL: 180->175, 257->165 (with heavy segmentation error today and previous OCT). Visual function remains minimally affected if at all. VA: 20/20, Color vision full. Visual field largely unchanged from prior. - Leukemic infiltrate vs IIH as a cause of increased ICP will treat empirically with stable to improving disc edema on exam-- to prevent vision loss. 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 Stable creamy lesions on exam yesterday. Interval: OCT macula with elevation near bruchs membrane at the location of creamy small lesions. - So far likely etiology is leukemic infiltration of the nerve retina vs. Possible infectious etiology vs other drusenoid accumulation. Will repeat DFE tomorrow with Dr. Hobson to assess Recommendations: - Increase acetazolamide to 1000mg ER BID if cleared by primary team - Will see patient again tomorrow with Dr. Hobson for DFE. - FOLLOW-UP PLAN: Call prior to discharging pt for follow-up. Pt should not be discharged prior to ophthalmology arranging follow-up. Seen independently by me. Dano Jean MD Ophthalmology Resident 10/02/2023 4:07 PM Addendum: Chart reviewed, agree with resident's impression and plan. Patient was not seen by an attending. Hina Wahl MD ST REPRESENTATIVE * Shelby Jimenez - 10/02/2023 11:15 AM CST Discharge tv technician received request from ZACH Muñiz to schedule a follow up appointment with Neurosurgery. This ad copy writer sent a request via [email or web address] to [facility] to assist with scheduling an appointment. The patient's chart will be updated once an appointment has been made. The patient will continued to be followed for their discharge planning needs. 10/02/2023 Shelby Jimenez This ad copy writer received appointment information from [facility]. The patient is scheduled to see on 11-19-2023 at 9:45am. Testing is scheduled for 9:00am the same day. No further discharge scheduling needs at this time. Shelby Jimenez 10/02/2023 ST REPRESENTATIVE * Med Hodges DO - 10/02/2023 8:17 AM CST [facility] Medicine Daily Progress Note Name: Selvin Mckeon Age: [age] year old Room: 721/01 Date Admitted: 09/03/2023 Hospital Course: Selvin Mckeon is a 38 year old female with no significant past medical history who presented on 09/03 with fatigue and flu-like symptoms. She was found to have AML and is undergoing induction therapywith 7+3. Hospital course c/b persistent tachycardia, neutropenic fever, and hypoxia. Hospital course c/b leukemic infiltrates on fundoscopic exam. Interval History: Overnight, pt was vomiting. Reports vomiting has improved today Objective: No data found. Estimated body mass index is 46.35 kg/m?? as calculated from the following: Height as of this encounter: 1.575 m (5' 2 ). Weight as of this encounter: 114.9 kg (253 lb 6.4 oz). O: Gen: NAD CV: RRR no M Resp: CTAB Labs: Recent Labs Component Name 10/01/23211809/14/23214909/13/232051 WBC 4.1 - 0.5* HGB 7.3* - 7.4* HCT 21.5* - 20.0* NA 142 - 138 CL 113* - 108* BUN <5* - 10 CREATININE 0.53* - 0.66 PHOS 2.6* - - CALCIUM 8.4 - 8.4 PT - - 13.1 INR - - 1.0 AST 38* - 15 ALT 29 - 40 ALKPHOS 58 - 55 TBILI 0.3 - 0.5 - = values in this interval not displayed. 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 (CMS-HCC) (POA: Yes) Pancytopenia (CMS-HCC) (POA: Yes) Tonsillitis (POA: Yes) Acute hypoxic respiratory failure (CMS-HCC) (POA: No) Pulmonary edema (POA: No) Febrile neutropenia (CMS-HCC) (POA: No) #AML c/b pancytopenia and febrile neutropenia BMBx at [place] with 78% blasts, final report with 90% blast consistent with AML Day 14 BMBx without evidence of residual AML - D22 7+3 - medroxyprogesterone decreased to 10mg daily per oncology recommendations for menstrual bleeding - monitor daily labs, transfuse plt <20, Hgb <7; both leukoreduced and irradiated blood if needed - continue Valtrex for OI prophylaxis #Acute onset floaters, 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 Recs include repeat LP w/ opening pressure and d/cing Medoxyprogesterone. -Ophthalmology following. Recommend IV Diamox. Will continue to monitor -Appreciate Heme/onc recs regarding further plans for treatment. Small volume SAH in right central sulcus -NSGY following. Will f/u with pt in clinic w/ in 4-6 weeks w/ CTH non con for imaging. #Acute respiratory failure with hypoxia, resolved #Sinus tachycardia, resolved - holding anticoagulation given elevated risk in setting of thrombocytopenia, once platelets recover will need reevaluation for need of AC vs repeat CT PE - repeat TTE with normal RV, continue telemetry - Suspect may be related to anemia #Back pain, improved -Ctm #Tonsillitis, resolved - status post course of augmentin FEN: Electrolytes replaced with goal of K>4, Phos>3, Mag>2. Diet: Regular PPx: holding chemical ppx in setting of thrombocytopenia Disposition: Inpatient Code Status: Full Pt seen and discussed with Dr.Wheeler Med Hodges, DO ST REPRESENTATIVE Associated attestation - Umair Tan MD - 10/02/2023 4:33 PM ARTIST REPRESENTATIVE I have seen and examined the patient with the resident and I agree with the findings and plan of care as documented by the resident. Date of Service: 10/02/2023 Umair Tan MD * Remington Stafford MD - 10/02/2023 6:58 AM CST Images from the original note were not included. HEMATOLOGY/ONCOLOGY INPATIENT PROGRESS NOTE Name: Selvin Mckeno Age: [age] year old Date of : 1985 Date of Service: 10/02/2023 HEMATOLOGY & ONCOLOGY HISTORY Principal Diagnosis: AML, NPM-1 mut, fav risk Current Therapy: 7 + 3 (cytarabine and idarubicin) Prior Hematology/Oncology History: 09/02/2023: Bone marrow biopsy at [facility] which revealed 78% blasts likely AML. 09/03/2023: Patient transferred to [facility] for further care and evaluation. SUBJECTIVE History of Present Illness Chief Complaint: Concern for AML Interval History: Yesterday, patient underwent bone marrow biopsy, results pending. She received LP with intrathecal cytarabine, CSF flow cytometry with inadequate cellularity for analysis. Patient started on acetazolamide ER 500 mg BID and Neurology consulted due to concern for IIH. Neurosurgery with no further inpatient intervention and recommended outpatient follow-up. Ophthalmology and Radiation oncology continuing to follow. Overnight, patient with persistent nausea/vomiting that started after receiving LP with intrathecalchemotherapy. This AM, patient reports feeling much better and is no longer experiencing nausea/vomiting. She reports increased leg swelling she attributes to the IV fluids started overnight. ANC 1927 from 1148 yesterday. Review of Systems: As noted in HPI. All other systems reviewed and negative. 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 Oncology History No history exists. Active Treatment Days for Selvin Mckeon (until 10/03/2023) There are no remaining days before 10/03/2023. Social History Social History Tobacco Use Smoking status: Former Packs/day: 1 Types: Cigarettes Start date: 2004 Quit date: 2010 Years since quittin.0 Smokeless tobacco: Never Substance Use Topics Alcohol use: Yes Comment: occasional Family History Family History Family history unknown: Yes Medications SCHEDULED MEDICATIONS: 0.9% NaCl injection 3 mL, Intracatheter, q8h acetaZOLAMIDE ER 12hr (Diamox Sequel) capsule 500 mg, Oral, BID famotidine (Pepcid) tablet 20 mg, Oral, BID insulin aspart (NovoLOG) pen 0-6 Units, Subcutaneous, TID WC iopamidol (Isovue 370) 76 % contrast, Intravenous, Contrast - Once medroxyPROGESTERone (Provera) tablet 10 mg, Oral, QDAY perflutren lipid microsphere (Definity) injection 0.5 mL, Intravenous, intra- Procedure multiple valACYclovir (Valtrex) tablet 500 mg, Oral, BID [COMPLETED] acetaZOLAMIDE (Diamox) injection 500 mg, Intravenous, Once [COMPLETED] cytarabine (Cytosar) INTRATHECAL chemo injection 100 mg, Intrathecal, Once [COMPLETED] fentaNYL (PF) (Sublimaze) injection 25 mcg, Intravenous, Once [COMPLETED] lactated ringers IV bolus, Intravenous, Once [COMPLETED] lidocaine (Xylocaine) 1 % injection, Subcutaneous, Once [] fentaNYL (PF) (Sublimaze) injection 25 mcg, Intravenous, Once [] gadobutrol (Gadavist) injection, Intravenous, Contrast - Once CONTINUOUS MEDICATIONS: dextrose 5 % and lactated ringers infusion, Intravenous, Continuous PRN MEDICATIONS: Or Or 0.9% NaCl injection 1-10 mL, Intracatheter, PRN acetaminophen (Tylenol) tablet 650 mg, Oral, q6h PRN ALPRAZolam (Xanax) tablet 0.25 mg, Oral, BID PRN dextrose 10 % IV bolus, Intravenous, PRN dextrose 10 % IV bolus, Intravenous, PRN dicyclomine (Bentyl) tablet 20 mg, Oral, TID PRN docusate sodium (Colace) solution 50 mg, Oral, AT BEDTIME PRN glucagon (Glucagen) injection 1 mg, Subcutaneous, PRN glucose (Diabetic Use) oral gel, Oral, PRN guaiFENesin (Robitussin) solution 10 mL, Oral, q6h PRN heparin lock flush injection 500 Units, Intracatheter, PRN melatonin tablet 3 mg, Oral, AT BEDTIME PRN ondansetron (disintegrating) (Zofran ODT) tablet 8 mg, Oral, BID PRN ondansetron (Zofran) injection 8 mg, Intravenous, BID PRN oxyCODONE (immediate release) (Roxicodone) tablet 5 mg, Oral, q6h PRN prochlorperazine (Compazine) injection 5 mg, Intravenous, q6h PRN simethicone (Mylicon) chew tablet 80 mg, Oral, 4X/day PRN Allergies No Known Allergies OBJECTIVE Physical Exam Vitals: 10/01/23 1144 10/01/23 1609 10/02/23 0015 10/02/23 0332 BP: 126/90 126/88 137/92 Pulse: 93 96 102 Resp: 20 20 18 Temp: 97.8 ??F (36.6 ??C) 97.8 ??F (36.6 ??C) 97.6 ??F (36.4 ??C) SpO2: 98% 99% 97% Weight: 114.9 kg (253 lb 6.4 oz) Height: Wt Readings from Last 3 Encounters: 10/02/23 114.9 kg (253 lb 6.4 oz) ECO General: Sitting up on couch, no acute distress Heart: Normal S1, S2. Regular rate and rhythm. Lungs: Symmetric chest rise, clear to auscultation bilaterally Abdomen: Soft, nontender, nondistended. Bowel sounds present. Extremities: 1+ bilateral lower extremity edema slightly increased from yesterday Skin: Warm, dry. Psychiatric: Cooperative. Appropriate mood and affect. Laboratory Results Recent Labs Component Name 10/01/23211809/30/23200809/29/232129 WBC 4.1 4.1 2.9* RBC 2.36* 2.32* 2.30* HGB 7.3* 7.1* 7.1* HCT 21.5* 20.4* 20.0* MCV 91.1 87.9 87.0 MCHC 34.0 34.8 35.5 PLTCOUNT 110* 97* 44* NEUTABS 1.06* 1.93 0.82* 1.15* 0.58* 0.64* LYMPHABS 1.11 1.80 1.16 Recent Labs Component Name 10/01/23211809/30/23200809/29/232129 POTASSIUM 3.5 3.3* 3.5 CO2 21* 23 25 BUN <5* 6* 6* CREATININE 0.53* 0.56 0.55* EGFR >90 >90 >90 GLUCOSE 95 112 109 CALCIUM 8.4 8.7 8.4 MAGNESIUM 2.0 2.0 2.1 PHOS 2.6* 2.3* 1.9* ALT 29 19 16 AST 38* 21 14 ALKPHOS 58 57 52 Pathology Results RESULT Normal FISH Result inv(3) or t(3;3) RPN1::MECOM Fusion: not detected Deletion 5q: not detected Monosomy 7: not detected Deletion 7q: not detected t(8;21) RUNX1::AIHQ4N2 Fusion: not detected 11p15 (NUP98) Rearrangement: not detected 11q23 (KMT2A) Rearrangement: not detected inv(16) or t(16;16) CBFB::MYH11 Fusion: not detected INTERPRETATION There was no evidence of RPN1::MECOM fusion due to 3q21/3q26.2 inversion or translocation, deletion 5q31, monosomy 7, deletion 7q31, RUNX1::RDTE8O5 fusion due to translocation (8;21)(q21.3;q22), 11p15 (NUP98) [...] only. Flow Cytometry Summary Concurrent flow cytometry ([id number]) shows acute myeloid leukemia. Radiology Results XR ABD OBSTRUCTION SERIES 2VW Result Date: 10/02/2023 IMPRESSION: Paucity of bowel gas. No pneumoperitoneum. Report dictated by Haleigh Mosquera MD (assistant professor of radiology). Fabien Bartholomew DO have personally reviewed and interpreted this examination/study. > Interpreting Provider: Fabien Yin DO on 10/02/2023 9:26 AM FL LUMBAR PUNCT FOR CHEMO INJ Result Date: 10/01/2023 IMPRESSION: 1. Successful lumbar puncture under fluoroscopic guidance at level L4-5. 2. Successful injection of intrathecal chemotherapeutic agent. Report dictated by Sivakumar Garrido DO (Video Arcade Manager). Attending Physician: Dr. Augustine Davison Cvt Rn: Dr. Sivakumar Garrido DO (Video Arcade Manager). The procedure was performed by the: The bacteriology research assistant, and the attending radiologist was present for all critical and aguirre portions of the procedure, and was immediately available to furnish services during the entire procedure. The attending radiologist performed the following procedural activities: IDr. Augustnie was there and supervised aguirre portions of the procedure, not scrubbed. Augustine Bartholomew MD have personally reviewed and interpreted this examination/study. > Interpreting Provider: Augustine Dvaison MD on 10/01/2023 4:[address] HEAD WO CONTRAST Result Date: 10/01/2023 IMPRESSION: A tiny amount of subarachnoid hemorrhage in the right central sulcus is less conspicuous, suggesting evolution. Report dictated by Sivakumar Garrido DO (Video Arcade Manager). Romie Bartholomew MD have personally reviewed and interpreted this examination/study. > Interpreting Provider: Romie Sanchez MD on 10/01/2023 11:[address] ANGIO BRAIN AND NECK Result Date: 10/01/2023 IMPRESSION: 1.Previously described trace volume of subarachnoid hemorrhage within the right centralsulcus is not well appreciated on the current study. No evidence of acute intracranial hemorrhage on the current study. There appears to be some vascularity within the right central sulcus, likely the source of the signal seen on the prior MRI. Findings are nonspecific and could represent a variantvenous structure with slow flow. If there is clinical concern, follow-up imaging could be obtained for further evaluation. 2.Findings compatible with idiopathic intracranial hypertension, AKA pseudotumor cerebri. Clinical correlation is recommended. 3.No large arterial occlusions or significant sten oses identified in the head or neck. 4.Heterogeneous [...] verification. Report dictated by Steve Street M.D. (assistant professor of radiology) 10/01/2023 12:40 AM IAugustine MD have personally reviewed and interpreted this examination/study. > Interpreting Provider: Augustine Davison MD on 10/01/2023 8:[address] HEAD WO CONTRAST Result Date: 09/30/2023 IMPRESSION: Redemonstration of a tiny amount of subarachnoid hemorrhage in the right central sulcus. These findings were discussed in detail with the patient's care provider, Dr. Tan by Dr. Sanchez via telephone at 4:43 PM on 09/30/2023 with readback comprehension and verification. Report dictated by Sivakumar Garrido DO (Video Arcade Manager). Romie Bartholomew MD have personally reviewed and interpreted this examination/study. > Interpreting Provider: Romie Sanchez MD on 09/30/2023 4:43 PM MRI ORBITS OR FACE WWO CONTRAST Result Date: 09/30/2023 IMPRESSION: 1.There is lack of FLAIR suppression [...] partially empty sella appearance could be normal variant,however could also be seen in the setting of idiopathic intracranial hypertension. The report was drafted by Mary Muir MD (Video Arcade Manager). Preliminary findings were discussed in detail with the patient's care provider, Dr. Tan by Dr. Muir via telephone at 11:03 AM on 09/30/2023 with readback comprehension and verification. Sara Bartholomew MD have personally reviewedand interpreted this examination/study. > Interpreting Provider: Sara Huitron MD on 09/30/2023 1:43 PM MRI BRAIN WWO CONTRAST Result Date: 09/30/2023 IMPRESSION: 1.There is lack of FLAIR suppression [...] partially empty sella appearance could be normal variant,however could also be seen in the setting of idiopathic intracranial hypertension. The report was drafted by Mary Muir MD (Video Arcade Manager). Preliminary findings were discussed in detail with the patient's care provider, Dr. Tan by Dr. Muir via telephone at 11:03 AM on 09/30/2023 with readback comprehension and verification. Sara Bartholomew MD have personally reviewedand interpreted this examination/study. > Interpreting Provider: Sara Huitron MD on 09/30/2023 1:43 PM ASSESSMENT Selvin Mckeon is a 38 year old female who transferred to [facility] on 09/03/2023 for suspected AML. Patient started 7 + 3 (cytarabine and idarubicin) on 09/06/2023. Today is D27 7 + 3 (cytarabine and idarubicin). 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 F on 09/22 #Tachycardia #Acute respiratory failure with hypoxia, resolved -Suspected to be due to atelectasis, anemia, possible pulmonary embolism, hypophosphatemia -CT chest PE-Suboptimal evaluation of the pulmonary arteries given phase of contrast. However, within the limitations of this examination, there is suggestion of a small nonocclusive pulmonary embolus in a segmental/subsegmental right lower lobe pulmonary artery. -Duplex venous ultrasound negative for DVT -Blood cx 09/22 no growth at 5 days -CXR 09/28 with unchanged diffuse interstitial prominence, could represent pulmonary vascular congestion and/or interstitial pneumonia no pleural effusion or pneumothorax RECOMMENDATIONS -Plan to start high dose cytarabine today, consent to be obtained -Bone marrow biopsy yesterday, follow-up pathology results -LP yesterday with intrathecal cytarabine, follow-up CSF studies -Follow-up Neurology recommendations -Follow-up Ophthalmology recommendations -Follow-up Radiation Oncology recommendations -Continue Valtrex for ppx -Given that patient no longer has bleeding per vagina will decrease frequency of medroxyprogesterone to 10 mg daily. Continue for duration of chemo. -Daily CBC w/diff, CMP -Daily weights -Transfusion parameters: (Leukoreduced and irradiated blood products)pRBC to keep Hgb >7 if hemodynamically stable and no bleeding. PLT transfusion to keep PLT >50K at this time due to (small) SAH and no upcoming NSGY intervention planned. PLT~100K is adequate for neurosurgical interventions.Fibrinogen > 100 -PRN anti-emetics -Would not recommend anticoagulation given low suspicion for PE, diagnostic imaging nonconclusive. Additionally she has thrombocytopenia. -Dr. Carias will be primary- patient will need outpatient follow up scheduled prior to discharge. Patient discussed with Attending Dr. Stafford. Thank you for the opportunity to participate in the care of this patient. Hem/Onc consult service will continue to follow closely. Please don't hesitate to contact hem/onc consult fellow via the warping mill operator or AMION if any questions or clarifications. Linnette Antonio MS4 Hematology/Oncology Consult Service 10/02/2023 6:59 AM I personally evaluated and examined Selvin Mckeon. I confirmed the aguirre elements of of history and physical examination. I also discussed the assessment and plan in detail with the team on rounds and with the patient. I made some modifications to the above note. I fully concur with the above assessment and plan. Maribel Stafford MD [facility] Department of Internal Medicine Division of Hematology Oncology ST REPRESENTATIVE * Queta Moreno RN - 10/02/2023 12:27 AM CST Problem: Infection Goal: Signs and symptoms of infections are decreased or avoided Outcome: Progressing Problem: Pain/Discomfort Goal: Patient exhibits reduced pain/discomfort as evidenced by pain scores Outcome: Progressing Problem: Fall Risk Goal: Fall risk and fall related injury risk are minimized (interventions related to the fall risk can be found in the flowsheet documentation) Outcome: Progressing Problem: Hemodynamic Status/Cardiac Output Goal: Patient has stable vital signs and fluid balance Outcome: Progressing ST REPRESENTATIVE * Kevin Houston MD - 10/01/2023 7:11 PM CST I was called by patient's nurse due to concern of persistent nausea and vomiting that reportdly started after LP and intrathecal chemo today. Patient unable to hold and solid food and even water. On my exam, she is non toxic appearing, AAO X4, abd exam, soft mild tenderness to LLQ but no guarding, BS present but sluggish. Will regress diet to clear liquids, IVF w D5LR at 75 cc/hr X 12 hrs, obtainAbd xray. Discussed with nurse to place NG tube if still vomiting after ordered IV anti-emetics. Signed out to concrete boom pump operator. ST REPRESENTATIVE * Tiana Burciaga DO - 10/01/2023 4:10 PM CST Ms. Mckeon is a 38-year-old female w/ favorable-risk AML being seen by our service. Please see progress note from today for further details. Please transfuse plts if plt count drops below 50k at thistime due to (small) SAH and no upcoming NSGY intervention planned. Thank you for the opportunity to participate in the care of this patient. Please don't hesitate to contact heme/onc consult fellow via the warping mill operator or AMION if any clarifications needed or any questions. Plan was discussed with hematology/oncology attending. Tiana Burciaga DO, PGY-4 Hematology/Oncology Fellow [facility] ST REPRESENTATIVE * Dori Muñiz APRN-CNP - 10/01/2023 4:02 PM CST NEUROSURGERY PROGRESS NOTE At the current time, Selvin Mckeon does not require any further inpatient neurosurgical care. Patient's exam and imaging have remained stable. If indicated by primary team, from a neurosurgical perspective it is safe to start heparin SubQ for VTE prophylaxis starting tomorrow. Please have the patient follow up with Dr Lomeli in 4-[address] head noncontrast for imaging. Our office will schedule their follow up appt. Neurosurgery follow upinformation also placed in [facility] discharge navigator. JOHN Cerda 10/01/2023 4:[address] REPRESENTATIVE * Justin Moon RN - 10/01/2023 3:56 PM CST Care Coordination Progress Note Anticipated level of care at discharge: Home: Anticipated level of care provider: None: Anticipated Discharge Date: 10/03/23: Discharge Plan: When medically stable, transfer home with support of boyfriend. Per Hematology Oncology: Today is D26 7 + 3 (cytarabine and idarubicin). Counts recovered; ANC 1148 from 638 yesterday. -Plan for LP today with intrathecal cytarabine, follow-up CSF studies -Will plan for repeat bone marrow biopsy since patient now with concern for ENVIRONMENTAL LABORATORY TECHNICIAN involvement -Follow-up Ophthalmology recommendations -Follow-up Neurosurgery recommendations -Follow-up Radiation Oncology recommendations Orientation Level: Appropriate for developmental age;Oriented X4: Family Support (Name and Phone): Extended Emergency Contact Information Primary Emergency Contact: Raheem Lai Mobile Relation: Significant other Secondary Emergency Contact: French Rosenthal Mobile Relation: Friend [employer] Field Processing Supervisor needed? No Transportation at Discharge: Friend: READMISSION RISK SCORE is 9 at 3:56 PM 10/01/2023.: Name: Justin Moon RN [phone] ST REPRESENTATIVE * Ebenezer Elkins RN - 10/01/2023 3:32 PM CST Problem: Infection Goal: Signs and symptoms of infections are decreased or avoided Outcome: Progressing Problem: Pain/Discomfort Goal: Patient exhibits reduced pain/discomfort as evidenced by pain scores Outcome: Progressing Problem: Fall Risk Goal: Fall risk and fall related injury risk are minimized (interventions related to the fall risk can be found in the flowsheet documentation) Outcome: Progressing Problem: Hemodynamic Status/Cardiac Output Goal: Patient has stable vital signs and fluid balance Outcome: Progressing Problem: Nutrient: Increased nutrient needs (specify) Goal: Total intake will meet estimated nutrient needs Outcome: Progressing ST REPRESENTATIVE * Hina Wahl MD - 10/01/2023 9:37 AM CST Images from the original note were not included. 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 She reports floaters in the right eye but denies vision loss, flashes, or veil OU. She denies pain, redness OU. Interval history: States vision is stable, floaters are unchanged, no flashes, no dark curtains. Denies eye pain. Review of Systems Positives in bold - General: fevers, night sweats, weight loss - Neuro: headache, weakness/numbness/tingling, hearingloss, cognitive changes - ENT: oral ulcers, sinusitis, ear/nose deformities - Skin: rashes, poliosis, madarosis, vitiligo, erythema nodosum - Pulm: SOB/THOMPSON, cough, hemoptysis - Cardiac: chest pain, pa lpitations - GI: diarrhea, ulcers - : genital lesions, discharge, blood in urine - MSK: arthralgias, low back pain Other ROS negative beyond pertinent positives and negatives in HPI Past Medical/Surgical History Past Medical History: Diagnosis Date NEGATIVE PAST MEDICAL HISTORY - SEE PROBLEM LIST Past ocular history: denies eye surgery, laser procedures, vision correction. Denies history of strabismus. Past Family History [] blindness [] glaucoma [] Other (please list) Family History Family history unknown: Yes Social History Noncontributory Allergies No Known Allergies Objective Base Eye Exam Visual Acuity (Lokesh Card) Right Left Near sc J1+ J1+ Tonometry (Tonopen, 3:33 PM) Right Left Pressure 15 17 Pupils Dark Light Shape React APD Right 6 4 Round 4+ None Left 6 4 Round 4+ None Visual Hurt Left Right Full Full Extraocular Movement Right Left 0 0 0 0 0 0 0 0 0 0 0 0 0 0 0 0 Neuro/Psych Oriented x3: Yes Mood/Affect: Normal Dilation Both eyes: 1.0% Mydriacyl, 1.0% Cyclogyl @ 3:33 PM Slit Lamp and Fundus Exam External Exam Right Left External Normal Normal Portable Slit Lamp Exam Right Left Lids/Lashes Normal Normal Conjunctiva/Sclera White and quiet White and quiet Cornea Clear Clear Anterior Chamber Deep and quiet Deep and quiet Iris Round and reactive Round and reactive Lens Clear Clear Vitreous PVD Normal Fundus Exam Right Left Disc Grade 3-4 Disc edema vs infiltrate with peripapillary hemorrhages Grade 3-4 Disc edema vs infiltrate with peripapillary hemorrhages Macula Small white retinal lesions, birmingham spot Small white retinal lesions, birmingham spot Vessels dilated and tortuous dilated and tortuous Periphery subILM heme, preretinal and intraretinal hemorrhages, inferotemporal birmingham spot preretinaland intraretinal hemorrhages, inferior birmingham spot Prior studies from 09/30/23 HVF above OD: Possible defects in SN and Temporally, unreliable. Fovea: 28 db, VFI: 92%, MD: -4.9 OS: ST and IT field defects through central vision. Unreliable. Fovea: 34, VFI: 82%, MD-4.6 1. 2. Disc and fundus photos 1. OD: with 5 small retinal lesions and a birmingham spot SN within the macula. Disc is elevated with PP flame hemes. Vessels normal course and caliber. 2. OS: 6 small retinal lesions. Disc is elevated with PP flame hemes. Vessels normal course and caliber. RNFL: 180, 257. Disc edema present, Inferior artifact due to heme on the left. Artificially readingthicker. OCT Macula with outer retinal disruption/ infiltrates corresponding to creamy white lesions. Assessment/Plan Selvin Mckeon is a 38 year old femaleconsulted for new onset floaters OD. Optic Disc edema OU Likely papilledema Elevated discs OU with worsening today from [...] opening pressure of LP was unmeasured 10/01/23. - Leukemic infiltrate vs IIH as a cause of increased ICP will treat empirically with worsening discedema on exam to prevent vision loss. 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 OCT macula with elevation near bruchs membrane at the location of creamy small lesions. Interval Hx: stable creamy lesions on exam today. - So far likely etiology is leukemic infiltration of the nerve and or retina vs. 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 Recommendations: - IV diamox 500mg single dose followed by - acetazolamide 500mg ER BID with up-titration soon - FOLLOW-UP PLAN: Call prior to discharging pt for follow-up. Pt should not be discharged prior to ophthalmology arranging follow-up. Upon discharge, will plan to schedule with Resident Knockout Machine Operator clinic. Seen on 09/[address] Garcia and discussed with Dr. Hobson and Dr. Garcia. Dano Jean MD Ophthalmology Resident 10/01/2023 3:49 PM Addendum: Chart reviewed, agree with resident's impression and plan. Patient was not seen by an attending. Hina Wahl MD ST REPRESENTATIVE * Med Hodges, DO - 10/01/2023 8:35 AM CST [facility] Medicine Daily Progress Note Name: Selvin Mckeon Age: [age] year old Room: 721/01 Date Admitted: 09/03/2023 Hospital Course: Selvin Mckeon is a 38 year old female with no significant past medical history who presented on 09/03 with fatigue and flu-like symptoms. She was found to have AML and is undergoing induction therapywith 7+3. Hospital course c/b persistent tachycardia, neutropenic fever, and hypoxia. Hospital course c/b leukemic infiltrates on fundoscopic exam. Interval History: Pt completed LP w/ intrathecal Cytarabine today. Pt was quite upset regarding recent complications of hospital course. Support were provided by the medical team. Per rad onc, no indication for radiotherapy given lack of progression of eye Sx. However, if there is evidence of ENVIRONMENTAL LABORATORY TECHNICIAN involvement, will reassess Objective: Patient Vitals for the past 6 hrs: Temp Pulse Resp BP BP Method 10/01/23 0734 97.9 ??F (36.6 ??C) 104 20 129/89 Automatic 10/01/23 0339 97.8 ??F (36.6 ??C) (!) 111 -- 102/70 -- Estimated body mass index is 46.93 kg/m?? as calculated from the following: Height as of this encounter: 1.575 m (5' 2 ). Weight as of this encounter: 116.4 kg (256 lb 9.6 oz). O: Gen: NAD CV: RRR no M Resp: CTAB Labs: Recent Labs Component Name 09/30/23200809/14/23214909/13/232051 WBC 4.1 - 0.5* HGB 7.1* - 7.4* HCT 20.4* - 20.0* NA 147* - 138 CL 113* - 108* BUN 6* - 10 CREATININE 0.56 - 0.66 PHOS 2.3* - - CALCIUM 8.7 - 8.4 PT - - 13.1 INR - - 1.0 AST 21 - 15 ALT 19 - 40 ALKPHOS 57 - 55 TBILI 0.3 - 0.5 - = values in this interval not displayed. 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 (CMS-HCC) (POA: Yes) Pancytopenia (CMS-HCC) (POA: Yes) Tonsillitis (POA: Yes) Acute hypoxic respiratory failure (CMS-HCC) (POA: No) Pulmonary edema (POA: No) Febrile neutropenia (CMS-HCC) (POA: No) #AML c/b pancytopenia and febrile neutropenia BMBx at [place] with 78% blasts, final report with 90% blast consistent with AML Day 14 BMBx without evidence of residual AML - D22 7+3 - medroxyprogesterone decreased to 10mg daily per oncology recommendations for menstrual bleeding - monitor daily labs, transfuse plt <20, Hgb <7; both leukoreduced and irradiated blood if needed - continue Valtrex for OI prophylaxis #Acute onset floaters - consulted ophthalmology given acute onset, their exam consistent with leukemic retinopathy. -rad onc consulted for radiation therapy -LP orders placed for intrathecal cytarabine Small volume SAH in right central sulcus -NSGY following. Recs include repeat CTH and CTA #Acute respiratory failure with hypoxia, resolved #Sinus tachycardia, resolved - holding anticoagulation given elevated risk in setting of thrombocytopenia, once platelets recover will need reevaluation for need of AC vs repeat CT PE - repeat TTE with normal RV, continue telemetry - Suspect may be related to anemia #Back pain, improved -Ctm #Hypokalemia #Hypophosphatemia - repeat as indicated #Tonsillitis, resolved - status post course of augmentin FEN: Electrolytes replaced with goal of K>4, Phos>3, Mag>2. Diet: Regular PPx: holding chemical ppx in setting of thrombocytopenia Disposition: Inpatient Code Status: Full Pt seen and discussed with Dr.Wheeler Med Hodges, ST REPRESENTATIVE Associated attestation - Umair Tan MD - 10/01/2023 3:47 PM ARTIST REPRESENTATIVE I have seen and examined the patient with the resident and I agree with the findings and plan of care as documented by the resident. In addition: - appreciate input from neurosurgery and radiation oncology - CTA - suggest that prior imaging finding is not a SAH but more likely a variant venous structure with slow flow - LP with intrathecal chemo provided today, unfortunately no opening pressure was obtained. Date of Service: 10/01/2023 Umair Tan MD * JamaalRemington MD - 10/01/2023 8:04 AM CST Images from the original note were not included. HEMATOLOGY/ONCOLOGY INPATIENT PROGRESS NOTE Name: Selvin Mckeon Age: [age] year old Date of : 1985 Date of Service: 10/01/2023 HEMATOLOGY & ONCOLOGY HISTORY Principal Diagnosis: AML, NPM-1 mut, fav risk Current Therapy: 7 + 3 (cytarabine and idarubicin) Prior Hematology/Oncology History: 09/02/2023: Bone marrow biopsy at [facility] which revealed 78% blasts likely AML. 09/03/2023: Patient transferred to [facility] for further care and evaluation. SUBJECTIVE History of Present Illness Chief Complaint: Concern for AML Interval History: Per Ophthalmology recommendations, patient received MRI Brain + Orbits yesterday which showed concern for developing SAH, slight tortuous course of bilateral optic nerves and partially empty sella appearance that could be seen in idiopathic intracranial hypertension. CT Head with re demonstration of small amount of subarachnoid hemorrhage in the right central sulcus. Neurosurgery consulted and recommended additional imaging. Patient seen by Ophthalmology in clinic yesterday AM for floaters x 3 days in both eyes R>L. Based on additional imaging and clinic visit, Ophthalmology concerned for leukemic retinopathy and agreed with LP and cytology for evaluation of ENVIRONMENTAL LABORATORY TECHNICIAN involving AML. Radiation oncology consulted with plan to evaluate patient again today and will consider local radiation if symptoms progress. This AM, patient resting comfortably in bed with no acute complaints. She reports her vision/bilateral floaters are unchanged. She denies fevers, chills, headaches, vertigo, abdominal pain, or increased leg swelling. ANC 1148 from 638 yesterday. Review of Systems: As noted in HPI. All other systems reviewed and negative. Past Medical & Surgical History Patient Active Problem List Diagnosis ??? Acute hypoxic respiratory failure (CMS-HCC) ??? Pulmonary edema ??? Febrile neutropenia (CMS-HCC) ??? Pancytopenia (CMS-HCC) ??? Tonsillitis ??? 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 NEGATIVE PAST MEDICAL HISTORY - SEE PROBLEM LIST Past Surgical History: Procedure Laterality Date ??? Section ??? Cholecystectomy ??? KIDNEY STONES, REMOVAL Past Oncology History Cancer Staging No matching staging information was found for the patient. Oncology History No history exists. Active Treatment Days for Selvin Mckeon (until 10/02/2023) There are no remaining days before 10/02/2023. Social History Social History Tobacco Use ??? Smoking status: Former Packs/day: 1 Types: Cigarettes Start date: 2004 Quit date: 2011 Years since quittin.0 ??? Smokeless tobacco: Never Substance Use Topics ??? Alcohol use: Yes Comment: occasional Family History Family History Family history unknown: Yes Medications SCHEDULED MEDICATIONS: 0.9% NaCl injection 3 mL, Intracatheter, q8h cytarabine (Cytosar) INTRATHECAL chemo injection 100 mg, Intrathecal, Once famotidine (Pepcid) tablet 20 mg, Oral, BID gadobutrol (Gadavist) injection, Intravenous, Contrast - Once insulin aspart (NovoLOG) pen 0-6 Units, Subcutaneous, TID WC iopamidol (Isovue 370) 76 % contrast, Intravenous, Contrast - Once medroxyPROGESTERone (Provera) tablet 10 mg, Oral, QDAY perflutren lipid microsphere (Definity) injection 0.5 mL, Intravenous, intra- Procedure multiple valACYclovir (Valtrex) tablet 500 mg, Oral, BID [COMPLETED] sodium - potassium phosphates (K Phos Neutral) tablet 2 tablet, Oral, Once [COMPLETED] sodium - potassium phosphates (K Phos Neutral) tablet 2 tablet, Oral, Once CONTINUOUS MEDICATIONS: PRN MEDICATIONS: Or Or 0.9% NaCl infusion rate and volume, Intravenous, Once PRN 0.9% NaCl injection 1-10 mL, Intracatheter, PRN acetaminophen (Tylenol) tablet 650 mg, Oral, q6h PRN ALPRAZolam (Xanax) tablet 0.25 mg, Oral, BID PRN dextrose 10 % IV bolus, Intravenous, PRN dextrose 10 % IV bolus, Intravenous, PRN dicyclomine (Bentyl) tablet 20 mg, Oral, TID PRN docusate sodium (Colace) solution 50 mg, Oral, AT BEDTIME PRN glucagon (Glucagen) injection 1 mg, Subcutaneous, PRN glucose (Diabetic Use) oral gel, Oral, PRN guaiFENesin (Robitussin) solution 10 mL, Oral, q6h PRN heparin lock flush injection 500 Units, Intracatheter, PRN melatonin tablet 3 mg, Oral, AT BEDTIME PRN ondansetron (disintegrating) (Zofran ODT) tablet 8 mg, Oral, BID PRN ondansetron (Zofran) injection 8 mg, Intravenous, BID PRN oxyCODONE (immediate release) (Roxicodone) tablet 5 mg, Oral, q6h PRN prochlorperazine (Compazine) injection 5 mg, Intravenous, q6h PRN simethicone (Mylicon) chew tablet 80 mg, Oral, 4X/day PRN Allergies No Known Allergies OBJECTIVE Physical Exam Vitals: 09/30/23 2327 10/01/23 0339 10/01/23 0400 10/01/23 0734 BP: 129/83 102/70 129/89 Pulse: 107 (!) 111 104 Resp: 20 20 Temp: 97.8 ??F (36.6 ??C) 97.8 ??F (36.6 ??C) 97.9 ??F (36.6 ??C) SpO2: 99% 97% 98% Weight: 116.4 kg (256 lb 9.6 oz) Height: Wt Readings from Last 3 Encounters: 10/01/23 116.4 kg (256 lb 9.6 oz) ECO General: Resting comfortably in bed, no acute distress Heart: Normal S1, S2. Regular rate and rhythm. Lungs: Symmetric chest rise, clear to auscultation bilaterally Abdomen: Soft, nontender, nondistended. Bowel sounds present. Extremities: 1+ bilateral lower extremity edema unchanged from yesterday Skin: Warm, dry. Psychiatric: Cooperative. Appropriate mood and affect. Laboratory Results Recent Labs Component Name 09/30/23200809/29/23212909/28/232019 WBC 4.1 2.9* 2.0* RBC 2.32* 2.30* 2.37* HGB 7.1* 7.1* 7.4* HCT 20.4* 20.0* 20.6* MCV 87.9 87.0 86.9 MCHC 34.8 35.5 35.9 PLTCOUNT 97* 44* 34* NEUTABS 0.82* 1.15* 0.58* 0.64* 0.39* 0.42* LYMPHABS 1.80 1.16 1.00 Recent Labs Component Name 09/30/23200809/29/23212909/28/232019 POTASSIUM 3.3* 3.5 3.1* CO2 23 25 24 BUN 6* 6* 5* CREATININE 0.56 0.55* 0.56 EGFR >90 >90 >90 GLUCOSE 112 109 114 CALCIUM 8.7 8.4 8.2* MAGNESIUM 2.0 2.1 2.0 PHOS 2.3* 1.9* 1.8* ALT 19 16 19 AST 21 14 17 ALKPHOS 57 52 57 Pathology Results RESULT Normal FISH Result inv(3) or t(3;3) RPN1::MECOM Fusion: not detected Deletion 5q: not detected Monosomy 7: not detected Deletion 7q: not detected t(8;21) [id number]::[id number] Fusion: not detected 11p15 (NUP98) Rearrangement: not detected 11q23 (KMT2A) Rearrangement: not detected inv(16) or t(16;16) CBFB::MYH11 Fusion: not detected INTERPRETATION There was no evidence of RPN1::MECOM fusion due to 3q21/3q26.2 inversion or translocation, deletion 5q31, monosomy 7, deletion 7q31, RUNX1::RKNX1D4 fusion due to translocation (8;21)(q21.3;q22), 11p15 (NUP98) [...] flow cytometry () shows acute myeloid leukemia. Radiology Results CT ANGIO BRAIN AND NECK Result Date: 10/01/2023 IMPRESSION: 1.Previously described trace volume of subarachnoid hemorrhage within the right centralsulcus is not well appreciated on the current study. No evidence of acute intracranial hemorrhage on the current study. There appears to be some vascularity within the right central sulcus, likely the source of the signal seen on the prior MRI. Findings are nonspecific and could represent a variantvenous structure with slow flow. If there is clinical concern, follow-up imaging could be obtained for further evaluation. 2.Findings compatible with idiopathic intracranial hypertension, AKA pseudotumor cerebri. Clinical correlation is recommended. 3.No large arterial occlusions or significant sten oses identified in the head or neck. 4.Heterogeneous [...] verification. Report dictated by Steve Street M.D. (assistant professor of radiology) 10/01/2023 12:40 AM Augustine Bartholomew MD have personally reviewed and interpreted this examination/study. > Interpreting Provider: Augustine Davison MD on 10/01/2023 8:[address] HEAD WO CONTRAST Result Date: 09/30/2023 IMPRESSION: Redemonstration of a tiny amount of subarachnoid hemorrhage in the right central sulcus. These findings were discussed in detail with the patient's care provider, Dr. Tan by Dr. Sanchez via telephone at 4:43 PM on 09/30/2023 with readback comprehension and verification. Report dictated by Sivakumar Garrido DO (Video Arcade Manager). Romie Bartholomew MD have personally reviewed and interpreted this examination/study. > Interpreting Provider: Romie Snachez MD on 09/30/2023 4:43 PM MRI ORBITS OR FACE WWO CONTRAST Result Date: 09/30/2023 IMPRESSION: 1.There is lack of FLAIR suppression [...] partially empty sella appearance could be normal variant,however could also be seen in the setting of idiopathic intracranial hypertension. The report was drafted by Mary Muir MD (Video Arcade Manager). Preliminary findings were discussed in detail with the patient's care provider, Dr. Tan by Dr. Muir via telephone at 11:03 AM on 09/30/2023 with readback comprehension and verification. I, Sara Huitron MD have personally reviewedand interpreted this examination/study. > Interpreting Provider: Sara Huitron MD on 09/30/2023 1:43 PM MRI BRAIN WWO CONTRAST Result Date: 09/30/2023 IMPRESSION: 1.There is lack of FLAIR suppression [...] partially empty sella appearance could be normal variant,however could also be seen in the setting of idiopathic intracranial hypertension. The report was drafted by Mary Muir MD (Video Arcade Manager). Preliminary findings were discussed in detail with the patient's care provider, Dr. Tan by Dr. Muir via telephone at 11:03 AM on 09/30/2023 with readback comprehension and verification. I, Sara Huitron MD have personally reviewedand interpreted this examination/study. > Interpreting Provider: Sara Huitron MD on 09/30/2023 1:43 PM ASSESSMENT Selvin Mckeon is a 38 year old female who transferred to [facility] on 09/03/2023 for suspected AML. Patient started 7 + 3 (cytarabine and idarubicin) on 09/06/2023. Today is D26 7 + 3 (cytarabine and idarubicin). 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 F on 09/22 #Tachycardia #Acute respiratory failure with hypoxia, resolved -Suspected to be due to atelectasis, anemia, possible pulmonary embolism, hypophosphatemia -CT chest PE-Suboptimal evaluation of the pulmonary arteries given phase of contrast. However, within the limitations of this examination, there is suggestion of a small nonocclusive pulmonary embolus in a segmental/subsegmental right lower lobe pulmonary artery. -Duplex venous ultrasound negative for DVT -Blood cx 09/22 no growth at 5 days -CXR 09/28 with unchanged diffuse interstitial prominence, could represent pulmonary vascular congestion and/or interstitial pneumonia no pleural effusion or pneumothorax RECOMMENDATIONS -Plan for LP today with intrathecal cytarabine, follow-up CSF studies -Will plan for repeat bone marrow biopsy since patient now with concern for ENVIRONMENTAL LABORATORY TECHNICIAN involvement -Follow-up Ophthalmology recommendations -Follow-up Neurosurgery recommendations -Follow-up Radiation Oncology recommendations -Continue Valtrex for ppx -Given that patient no longer has bleeding per vagina will decrease frequency of medroxyprogesterone to 10 mg daily. Continue for duration of chemo. -Daily CBC w/diff, CMP -Daily weights -Transfusion parameters: (Leukoreduced and irradiated blood products)pRBC to keep Hgb >7 if hemodynamically stable and no bleeding.PLT transfusion to keep PLT >10 K; but if bleeding, keep PLT >20K for minor bleeds and >50K for major bleeds, if possible. PLT >50K is adequate for most invasive procedures. PLT~100K is adequate for neurosurgical interventions. Fibrinogen > 100 -PRN anti-emetics -Would not recommend anticoagulation given low suspicion for PE, diagnostic imaging nonconclusive. Additionally she has thrombocytopenia. -Dr. Carias will be primary- patient will need outpatient follow up scheduled prior to discharge. Patient discussed with Attending Dr. Stafford. Thank you for the opportunity to participate in the care of this patient. Hem/Onc consult service will continue to follow closely. Please don't hesitate to contact hem/onc consult fellow via the warping mill operator or AMION if any questions or clarifications. Linnette Antonio MS4 Hematology/Oncology Consult Service 10/01/2023 8:04 AM I personally evaluated and examined Selvin Mckeon. I confirmed the aguirre elements of of history and physical examination. I also discussed the assessment and plan in detail with the team on rounds and with the patient. I made some modifications to the above note. I fully concur with the above assessment and plan. Maribel Stafford MD [facility] Department of Internal Medicine Division of Hematology Oncology ST REPRESENTATIVE * Queta Moreno RN - 10/01/2023 5:23 AM CST Problem: Infection Goal: Signs and symptoms of infections are decreased or avoided Outcome: Adequate for Discharge Problem: Pain/Discomfort Goal: Patient exhibits reduced pain/discomfort as evidenced by pain scores Outcome: Adequate for Discharge Problem: Fall Risk Goal: Fall risk and fall related injury risk are minimized (interventions related to the fall risk can be found in the flowsheet documentation) Outcome: Adequate for Discharge Problem: Hemodynamic Status/Cardiac Output Goal: Patient has stable vital signs and fluid balance Outcome: Progressing ST REPRESENTATIVE * Gui Edwards RN - 09/30/2023 4:11 PM CST Problem: Nutrient: Increased nutrient needs (specify) Goal: Total intake will meet estimated nutrient needs Outcome: Progressing ST REPRESENTATIVE * Med Hodges, - 09/30/2023 4:09 PM CST Hospital Medicine Daily Progress Note Name: Selvin Mckeon Age: [age] year old Room: 721/01 Date Admitted: 09/03/2023 Hospital Course: Selvin Mckeon is a 38 year old female with no significant past medical history who presented on 09/03 with fatigue and flu-like symptoms. She was found to have AML and is undergoing induction therapywith 7+3. Hospital course c/b persistent tachycardia, neutropenic fever, and hypoxia. Interval History: Pt reports no vision changes. Pt was seen by Ophthalmology today, who reported concern for leukemic infiltrates on fundoscopic exam. Rad onc consulted and orders placed for LP with intrathecal Cytarabine Objective: No data found. Estimated body mass index is 46.97 kg/m?? as calculated from the following: Height as of this encounter: 1.575 m (5' 2 ). Weight as of this encounter: 116.5 kg (256 lb 12.8 oz). O: Gen: NAD CV: RRR no M Resp: CTAB Abd: soft, nt, nd Ext: no LE edema Neuro: A & O x3, CNIII, IV and intact, peripheral vision intact Labs: Recent Labs Component Name 09/29/23212909/14/23214909/13/232051 WBC 2.9* - 0.5* HGB 7.1* - 7.4* HCT 20.0* - 20.0* NA 141 - 138 CL 110* - 108* BUN 6* - 10 CREATININE 0.55* - 0.66 PHOS 1.9* - - CALCIUM 8.4 - 8.4 PT - - 13.1 INR - - 1.0 AST 14 - 15 ALT 16 - 40 ALKPHOS 52 - 55 TBILI 0.4 - 0.5 - = values in this interval not displayed. 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 (CMS-HCC) (POA: Yes) Pancytopenia (CMS-HCC) (POA: Yes) Tonsillitis (POA: Yes) Acute hypoxic respiratory failure (CMS-HCC) (POA: No) Pulmonary edema (POA: No) Febrile neutropenia (CMS-HCC) (POA: No) #AML c/b pancytopenia and febrile neutropenia BMBx at [place] with 78% blasts, final report with 90% blast consistent with AML Day 14 BMBx without evidence of residual AML - D22 7+3 - medroxyprogesterone decreased to 10mg daily per oncology recommendations for menstrual bleeding - monitor daily labs, transfuse plt <20, Hgb <7; both leukoreduced and irradiated blood if needed - continue Valtrex for OI prophylaxis #Acute onset floaters - consulted ophthalmology given acute onset, their exam consistent with leukemic retinopathy. -rad onc consulted for radiation therapy -LP orders placed for intrathecal cytarabine #Acute respiratory failure with hypoxia, resolved #Sinus tachycardia - holding anticoagulation given elevated risk in setting of thrombocytopenia, once platelets recover will need reevaluation for need of AC vs repeat CT PE - repeat TTE with normal RV, continue telemetry - Suspect may be related to anemia #Back pain, improved -Ctm #Hypokalemia #Hypophosphatemia - repeat as indicated #Tonsillitis, resolved - status post course of augmentin FEN: Electrolytes replaced with goal of K>4, Phos>3, Mag>2. Diet: Regular PPx: holding chemical ppx in setting of thrombocytopenia Disposition: Inpatient Code Status: Full Pt seen and discussed with Dr.Wheeler Med Hodges, ST REPRESENTATIVE Associated attestation - Umair Tan MD - 09/30/2023 6:06 PM ARTIST REPRESENTATIVE I have seen and examined the patient with the resident and I agree with the findings and plan of care as documented by the resident. In addition: - Noted ophthalmology concern for leukemic infiltrates - Radiation oncology consulted and patient low planned for LP with intrathecal therapy - of note, patient is due for repeat BM biopsy on inpatient side Additionally - MRI/CT imaging noted concern for SAH in central sulci - reached out to heme/onc who suggested plt goal >50 unless plan for intervention by neurosurgery - Neurosurgery consulted - Repeat Head CT requested 6 hrs after imaging - ordered. Date of Service: 09/30/2023 Umair Tan MD * Gaurav Moyer - 09/30/2023 2:48 PM CST Music Therapy Progress Note Start Time: 1420 End Time: 1445 Music Therapy Goals: Increase relaxation, Increase appropriate sensory stimulation and Increase meaningful social interaction Intervention Provided: Provide familiar / significant music, Utilized iso- principle and Provide opportunities for social interaction Therapy Type: Individual Therapy Patient Response: Appropriate and Tearful Affect: Mood, appropriate and Sad Treatment Modality: Music Therapy Music Therapist Gaurav Moyer visited patient in [facility] room. Patient was observed sitting up in chair, alert and oriented. Patient reported feeling stress and sadness regarding test results and changing discharge plans, and requested live music. During interventions, Patient mouthed familiar lyrics, made eye contact, demonstrated appropriate emotional coping skills (iewas tearful), and moved in time with the music. At conclusion of session, Patient thanked this ad copy writer and said, I think I needed that most of all today. Gaurav Moyer, [facility], [place] 09/30/2023 2:[address] REPRESENTATIVE * Dano Jean MD - 09/30/2023 9:09 AM CST Images from the original note were not included. 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 She reports floaters in the right eye but denies vision loss, flashes, or veil OU. She denies pain, redness OU. Interval history: States vision is stable, floaters are unchanged, no flashes, no dark curtains. Denies eye pain. Review of Systems Positives in bold - General: fevers, night sweats, weight loss - Neuro: headache, weakness/numbness/tingling, hearingloss, cognitive changes - ENT: oral ulcers, sinusitis, ear/nose deformities - Skin: rashes, poliosis, madarosis, vitiligo, erythema nodosum - Pulm: SOB/THOMPSON, cough, hemoptysis - Cardiac: chest pain, pa lpitations - GI: diarrhea, ulcers - : genital lesions, discharge, blood in urine - MSK: arthralgias, low back pain Other ROS negative beyond pertinent positives and negatives in HPI Past Medical/Surgical History Past Medical History: Diagnosis Date ??? NEGATIVE PAST MEDICAL HISTORY - SEE PROBLEM LIST Past ocular history: denies eye surgery, laser procedures, vision correction. Denies history of strabismus. Past Family History [] blindness [] glaucoma [] Other (please list) Family History Family history unknown: Yes Social History Noncontributory Allergies No Known Allergies Objective Base Eye Exam Neuro/Psych Oriented x3: Yes Mood/Affect: Normal Slit Lamp and Fundus Exam External Exam Right Left External Normal Normal Slit Lamp Exam Right Left Lids/Lashes Normal Normal Conjunctiva/Sclera White and quiet White and quiet Cornea Clear Clear Anterior Chamber Deep and quiet Deep and quiet Iris Round and reactive Round and reactive Lens Clear Clear Vitreous PVD Normal Fundus Exam Right Left Disc Disc edema vs infiltrate peripapillary hemorrhages Disc edema vs infiltrate peripapillary hemorrhages Macula no DBH, MA few foci of small white retinal lesions, birmingham spot no DBH, MA few foci of small white retinal lesions, [place] spot Vessels dilated and tortuous dilated and tortuous Periphery subILM heme, preretinal and intraretinal hemorrhages, inferotemporal birmingham spot preretinaland intraretinal hemorrhages, inferior [place] spot HVF above OD: Possible defects in SN and Temporally, unreliable. Fovea: 28 db, VFI: 92%, MD: -4.9 OS: ST and IT field defects through central vision. Unreliable. Fovea: 34, VFI: 82%, MD-4.6 1. 2. Disc and fundus photos 1. OD: with 5 small retinal lesions and a birmingham spot SN within the macula. Disc is elevated with PP flame hemes. Vessels normal course and caliber. 2. OS: 6 small retinal lesions. Disc is elevated with PP flame hemes. Vessels normal course and caliber. RNFL: 180, 257. Disc edema present, Inferior artifact due to heme on the left. Artificially readingthicker. OCT Macula with outer retinal disruption/ infiltrates corresponding to creamy white lesions. Assessment/Plan Selvin Mckeon is a 38 year old femaleconsulted for new onset floaters OD. 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 OCT macula with elevation near bruchs membrane at the location of creamy small lesions. - So far likely etiology is leukemic infiltration of the nerve and or retina vs. 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 Hemorrhages likely worsened by severe thrombocytopenia. Recommendations: -Agree with LP and cytology for evaluation of ENVIRONMENTAL LABORATORY TECHNICIAN involving AML - FOLLOW-UP PLAN: Call prior to discharging pt for follow-up. Pt should not be discharged prior to ophthalmology arranging follow-up. Upon discharge, will plan to schedule with Resident Knockout Machine Operator clinic. Seen with Dr. Garcia. Dano Jean MD Ophthalmology Resident 09/30/2023 6:[address] REPRESENTATIVE Associated attestation - Valentín Garcia MD - 10/02/2023 11:46 AM ARTIST REPRESENTATIVE I have seen and examined the patient with the resident and I agree with the findings and plan of care as documented by the resident. Date of Service: 09/30/23 VALENTÍN GARCIA MD * Justin Moon RN - 09/30/2023 9:02 AM CST Care Coordination Progress Note Anticipated level of care at discharge: Home: Anticipated level of care provider: None: Anticipated Discharge Date: 09/30/23: Discharge Plan: Home with support of her boyfriend. Treatment team informed of patient???s concerns prior to discharge : -hospital charges, she was instructed to call billing -discharging medication to bedside -ophthalmology evaluation -her boyfriend is available after 4 pm for transportation Orientation Level: Oriented X4: Family Support (Name and Phone): Extended Emergency Contact Information Primary Emergency Contact: Raheem Lai Mobile Relation: Significant other Secondary Emergency Contact: French Rosenthal Mobile Relation: Friend [employer] Field Processing Supervisor needed? No Transportation at Discharge: Friend: PCP: Nilam Mayers MD. Payer/Plan Subscriber Name Rel Member # Group # [facility] * SELVIN MCKEON Self [id number] [address] READMISSION RISK SCORE is 9 at 9:02 AM 09/30/2023.: Name: Justin Moon RN [phone] ST REPRESENTATIVE * Remington Stafford MD - 09/30/2023 8:23 AM CST Images from the original note were not included. HEMATOLOGY/ONCOLOGY INPATIENT PROGRESS NOTE Name: Selvin Mckeon Age: [age] year old Date of : 1985 Date of Service: 09/30/2023 HEMATOLOGY & ONCOLOGY HISTORY Principal Diagnosis: AML, NPM-1 mut, fav risk Current Therapy: 7 + 3 (cytarabine and idarubicin) Prior Hematology/Oncology History: 09/02/2023: Bone marrow biopsy at [facility] which revealed 78% blasts likely AML. 09/03/2023: Patient transferred to [facility] for further care and evaluation. SUBJECTIVE History of Present Illness Chief Complaint: Concern for AML Interval History: Patient reported new floaters x 3 days in right eye yesterday, Ophthalmology consult obtained. This AM, patient sitting by window listening to music. She reports her floaters are unchanged and are not bothering her. She reports overall feeling well and has been tolerating regular diet without nausea or vomiting. She denies pain, shortness of breath, or increased leg swelling. ANC 638 from 420 yesterday. Review of Systems: As noted in HPI. All other systems reviewed and negative. 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 Oncology History No history exists. Active Treatment Days for Selvin Mckeon (until 10/01/2023) There are no remaining days before 10/01/2023. Social History Social History Tobacco Use Smoking status: Former Packs/day: 1 Types: Cigarettes Start date: 2004 Quit date: 2010 Years since quittin.0 Smokeless tobacco: Never Substance Use Topics Alcohol use: Yes Comment: occasional Family History Family History Family history unknown: Yes Medications SCHEDULED MEDICATIONS: 0.9% NaCl injection 3 mL, Intracatheter, q8h famotidine (Pepcid) tablet 20 mg, Oral, BID gadobutrol (Gadavist) injection, Intravenous, Contrast - Once insulin aspart (NovoLOG) pen 0-4 Units, Subcutaneous, AT BEDTIME insulin aspart (NovoLOG) pen 0-6 Units, Subcutaneous, TID WC levoFLOXacin (Levaquin) tablet 500 mg, Oral, q24h medroxyPROGESTERone (Provera) tablet 10 mg, Oral, QDAY perflutren lipid microsphere (Definity) injection 0.5 mL, Intravenous, intra- Procedure multiple posaconazole (Noxafil) tablet 300 mg, Oral, QDAY WITH DINNER valACYclovir (Valtrex) tablet 500 mg, Oral, BID [COMPLETED] LORazepam (Ativan) injection 1 mg, Intravenous, Once [COMPLETED] sodium - potassium phosphates (K Phos Neutral) tablet 2 tablet, Oral, BID [COMPLETED] sodium - potassium phosphates (K Phos Neutral) tablet 2 tablet, Oral, Once CONTINUOUS MEDICATIONS: PRN MEDICATIONS: Or Or 0.9% NaCl injection 1-10 mL, Intracatheter, PRN acetaminophen (Tylenol) tablet 650 mg, Oral, q6h PRN ALPRAZolam (Xanax) tablet 0.25 mg, Oral, BID PRN dextrose 10 % IV bolus, Intravenous, PRN dextrose 10 % IV bolus, Intravenous, PRN dicyclomine (Bentyl) tablet 20 mg, Oral, TID PRN docusate sodium (Colace) solution 50 mg, Oral, AT BEDTIME PRN glucagon (Glucagen) injection 1 mg, Subcutaneous, PRN glucose (Diabetic Use) oral gel, Oral, PRN guaiFENesin (Robitussin) solution 10 mL, Oral, q6h PRN heparin lock flush injection 500 Units, Intracatheter, PRN melatonin tablet 3 mg, Oral, AT BEDTIME PRN ondansetron (disintegrating) (Zofran ODT) tablet 8 mg, Oral, BID PRN ondansetron (Zofran) injection 8 mg, Intravenous, BID PRN oxyCODONE (immediate release) (Roxicodone) tablet 5 mg, Oral, q6h PRN prochlorperazine (Compazine) injection 5 mg, Intravenous, q6h PRN simethicone (Mylicon) chew tablet 80 mg, Oral, 4X/day PRN Allergies No Known Allergies OBJECTIVE Physical Exam Vitals: 09/29/23 2117 09/30/23 0005 09/30/23 0406 09/30/23 0645 BP: 131/86 126/87 121/91 133/89 Pulse: 104 (!) 110 108 104 Resp: 20 20 20 20 Temp: 97.7 ??F (36.5 ??C) 97.6 ??F (36.4 ??C) 97.6 ??F (36.4 ??C) 97.7 ??F (36.5 ??C) SpO2: 100% 97% 99% 99% Weight: 116.5 kg (256 lb 12.8 oz) Height: Wt Readings from Last 3 Encounters: 09/30/23 116.5 kg (256 lb 12.8 oz) ECO General: Sitting up in chair by window, no acute distress Heart: Normal S1, S2. Regular rate and rhythm. Lungs: Symmetric chest rise, clear to auscultation bilaterally Abdomen: Soft, nontender, nondistended. Bowel sounds present. Extremities: 1+ bilateral lower extremity edema unchanged from yesterday Skin: Warm, dry. Psychiatric: Cooperative. Appropriate mood and affect. Laboratory Results Recent Labs Component Name 09/29/23212909/28/23201909/27/232019 WBC 2.9* 2.0* 0.8* RBC 2.30* 2.37* 2.30* HGB 7.1* 7.4* 7.0* HCT 20.0* 20.6* 19.4* MCV 87.0 86.9 84.3 MCHC 35.5 35.9 36.1 PLTCOUNT 44* 34* 28* NEUTABS 0.58* 0.64* 0.39* 0.42* 0.11* 0.10* LYMPHABS 1.16 1.00 0.48* Recent Labs Component Name 09/29/23212909/28/23201909/27/232019 POTASSIUM 3.5 3.1* 3.4* CO2 24 24 BUN 6* 5* <5* CREATININE 0.55* 0.56 0.56 EGFR >90 >90 >90 GLUCOSE 109 114 106 CALCIUM 8.4 8.2* 7.9* MAGNESIUM 2.1 2.0 2.1 PHOS 1.9* 1.8* 1.4* ALT 16 19 15 AST 14 17 16 ALKPHOS 52 57 52 Pathology Results RESULT Normal FISH Result inv(3) or t(3;3) RPN1::MECOM Fusion: not detected Deletion 5q: not detected Monosomy 7: not detected Deletion 7q: not detected t(8;21) [id number] Fusion: not detected 11p15 (NUP98) Rearrangement: not detected 11q23 (KMT2A) Rearrangement: not detected inv(16) or t(16;16) CBFB::MYH11 Fusion: not detected INTERPRETATION There was no evidence of RPN1::MECOM fusion due to 3q21/3q26.2 inversion or translocation, deletion 5q31, monosomy 7, deletion 7q31, RUNX1::PWEF7K8 fusion due to translocation (8;21)(q21.3;q22), 11p15 (NUP98) [...] only. 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 Radiology Results CT ANGIO CHEST PULM EMBOLISM Result Date: 09/23/2023 Impression: 1.Suboptimal evaluation of the pulmonary arteries given phase of contrast. However, within the limitations of this examination, there is suggestion of a small nonocclusive pulmonary embolus in a segmental/subsegmental right lower lobe pulmonary artery. 2.No evidence of acute right heartstrain. 3.Otherwise, no acute pulmonary process. Updated findings verbally relayed to Dr. Helena Hayward at 1019 on 09/23/2023. > Dictated by Kaye Teresa DO (assistant professor of radiology). I, LUDIVINA HAYWARD MD have personally reviewed and interpreted this examination/study. > Interpreting Provider: LUDIVINA HAYWARD MD on 09/23/2023 10:22 AM XR ABDOMEN KUB Result Date: 09/17/2023 IMPRESSION: No gross radiographic evidence of acute intra-abdominal process, however examination isseverely limited due to the patient's morbidly obese body habitus Report dictated by Ivy Corea Dr, MD (assistant professor of radiology). I, Raheem Cazares MD have personally reviewed and interpreted this examination/study. > Interpreting Provider: Raheem Cazares MD on 09/17/2023 2:19 PM IR CENTRAL LINE INSERT TUNNEL Result Date: 09/05/2023 IMPRESSION: Successful Right internal jugular tunneled central venous catheter placement. > Interpreting Provider: Maria G Mortensen MD on 09/05/2023 2:10 PM ASSESSMENT Selvin Mckeon is a 38 year old female who transferred to [facility] on 09/03/2023 for suspected AML. Patient started 7 + 3 (cytarabine and idarubicin) on 09/06/2023. Today is D25 7 + 3 (cytarabine and idarubicin). 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 F on 09/22 #Tachycardia #Acute respiratory failure with hypoxia, resolved -Suspected to be due to atelectasis, anemia, possible pulmonary embolism, hypophosphatemia -CT chest PE-Suboptimal evaluation of the pulmonary arteries given phase of contrast. However, within the limitations of this examination, there is suggestion of a small nonocclusive pulmonary embolus in a segmental/subsegmental right lower lobe pulmonary artery. -Duplex venous ultrasound negative for DVT -Blood cx 09/22 no growth at 5 days -CXR 09/28 with unchanged diffuse interstitial prominence, could represent pulmonary vascular congestion and/or interstitial pneumonia no pleural effusion or pneumothorax RECOMMENDATIONS -Follow-up Ophthalmology recommendations -Patient is okay to discharge from heme/onc perspective. Dr. Carias will be primary- patient will need outpatient follow up scheduled prior to discharge. -Discontinue Levaquin -Discontinue posaconazole -Continue Valtrex for ppx -Given that patient no longer has bleeding per vagina will decrease frequency of medroxyprogesterone to 10 mg daily. Continue for duration of chemo. -Daily CBC w/diff, CMP -Daily weights -Transfusion goals plts > 20 K(in the setting of vaginal bleeding), Hb >7.0, Fibronogen > 100. Please give both leukoreduced and irratiated blood if needed -PRN anti-emetics -Would not recommend anticoagulation given low suspicion for PE, diagnostic imaging nonconclusive. Additionally she has thrombocytopenia. Patient discussed with Attending Dr. Stafford. Thank you for the opportunity to participate in the care of this patient. Hem/Onc consult service will continue to follow closely. Please don't hesitate to contact hem/onc consult fellow via the warping mill operator or AMION if any questions or clarifications. Linnette Antonio MS4 Hematology/Oncology Consult Service 09/30/2023 8:24 AM I personally evaluated and examined Selvin Mckeon. I confirmed the aguirre elements of of history and physical examination. I also discussed the assessment and plan in detail with the team on rounds and with the patient. I made some modifications to the above note. I fully concur with the above assessment and plan. Maribel Stafford MD [facility] Department of Internal Medicine Division of Hematology Oncology ST REPRESENTATIVE * Flor Upton RN - 09/30/2023 3:17 AM CST Problem: Fall Risk Goal: Fall risk and fall related injury risk are minimized (interventions related to the fall risk can be found in the flowsheet documentation) Outcome: Progressing Problem: Hemodynamic Status/Cardiac Output Goal: Patient has stable vital signs and fluid balance Outcome: Progressing ST REPRESENTATIVE * Librado Mora DO - 09/29/2023 5:37 PM CST [facility] Medicine Daily Progress Note Name: Selvin Mckeon Age: [age] year old Room: 721/01 Date Admitted: 09/03/2023 Hospital Course: Selvin Mckeon is a 38 year old female with no significant past medical history who presented on 09/03 with fatigue and flu-like symptoms. She was found to have AML and is undergoing induction therapywith 7+3. Hospital course c/b persistent tachycardia, neutropenic fever, and hypoxia. Interval History: Report no dyspnea or pain anywhere Objective: Patient Vitals for the past 6 hrs: Temp Pulse Resp BP BP Method 09/29/23 1615 97.6 ??F (36.4 ??C) (!) 110 20 120/81 Automatic 09/29/23 1232 97.5 ??F (36.4 ??C) 107 20 126/77 Automatic Estimated body mass index is 47.48 kg/m?? as calculated from the following: Height as of this encounter: 1.575 m (5' 2 ). Weight as of this encounter: 117.8 kg (259 lb 9.6 oz). Physical Exam: General: Alert, ambulatory without assistance, cooperative, no distress, appears stated age. Posterior hair loss. Eyes: Conjunctivae clear. EOMI. No conjunctival injection. Neck: RIJ in place without surrounding erythema or pain Lungs: Clear to auscultation bilaterally. No increased work of breathing Heart: Tachycardic Abdomen: Soft, non-tender. Bowel sounds normal. Back: Hypertonicity noted in the thoracic paraspinal musculature bilaterally, pain improved with soft tissue massage Extremities: Moving spontaneously Neuro: Answering questions appropriately with clear speech Labs: Recent Labs Component Name 09/28/23201909/14/23214909/13/232051 WBC 2.0* - 0.5* HGB 7.4* - 7.4* HCT 20.6* - 20.0* NA 137 - 138 CL 104 - 108* BUN 5* - 10 CREATININE 0.56 - 0.66 PHOS 1.8* - - CALCIUM 8.2* - 8.4 PT - - 13.1 INR - - 1.0 AST 17 - 15 ALT 19 - 40 ALKPHOS 57 - 55 TBILI 0.5 - 0.5 - = values in this interval not displayed. 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 (CMS-HCC) (POA: Yes) Pancytopenia (CMS-HCC) (POA: Yes) Tonsillitis (POA: Yes) Acute hypoxic respiratory failure (CMS-HCC) (POA: No) Pulmonary edema (POA: No) Febrile neutropenia (CMS-HCC) (POA: No) #AML c/b pancytopenia and febrile neutropenia BMBx at [place] with 78% blasts, final report with 90% blast consistent with AML Day 14 BMBx without evidence of residual AML - D22 7+3 - medroxyprogesterone decreased to 10mg daily per oncology recommendations for menstrual bleeding - monitor daily labs, transfuse plt <20, Hgb <7; both leukoreduced and irradiated blood if needed - continue posaconazole and valtrex for OI prophylaxis - transitioning from therapeutic cefepime dose to ppx levofloxacin dosing, appreciate heme/onc guidance. #Acute onset floaters - consulted ophthalmology given acute onset, their exam consistent with leukemic retinopathy. Plan is for patient to proceed with ophthalmologic testing on 09/30/2023, she will have to be wheeled down there due to the need for specialized equipment. Nursing communication placed to ok this course of action. - MRI Brain & orbits wwo per optho recs #Acute respiratory failure with hypoxia, resolved #Sinus tachycardia - holding anticoagulation given elevated risk in setting of thrombocytopenia, once platelets recover will need reevaluation for need of AC vs repeat CT PE - repeat TTE with normal RV, continue telemetry - Suspect may be related to anemia #Back pain - likely MSK in setting of nausea and vomiting, rule out new consolidation - improved with palpation during exam, given heat pack PRN - halting oxicodone for back pain #Hypokalemia #Hypophosphatemia - repeat as indicated #Tonsillitis, resolved - status post course of augmentin FEN: Electrolytes replaced with goal of K>4, Phos>3, Mag>2. Diet: Regular PPx: holding chemical ppx in setting of thrombocytopenia Disposition: Inpatient Code Status: Full Librado Mora DO ST REPRESENTATIVE * Felicia Valencia, JUSTIN/LD - 09/29/2023 2:34 PM CST Clinical Nutrition Assessment Brief Synopsis: Patient is at Nutrition Risk; Specific criteria can be found in assessment below Nutrition Plan: Regular diet Recommendations to Physician: Continue to monitor and replete lytes as indicated -- K+ and Phos Comments: Pt scheduled for reassessment. PO intake appears adequate per documentation -- consistently > 75% of meals since 09/23/23. Good intake of ONS as well. Last BM 09/28; pt experiencing frequent loose/watery stools per banquet coordinator. Noted fiber pkt ordered BID. Labs reviewed -- K+ (3.1) and Phos (1.8). Noted pt receiving supplemental NaKPhos oral tablet BID, per NOV. RD to follow per clinical nutrition guidelines. Assessment: Med/Surg History and Clinical Diagnoses: PMH who presented to [facility] presenting with fevers and flu like symptoms, initially thought to have tonsillitis seen on CT face Height: 157.5 cm (5' 2 ) Weight: 117.8 kg (259 lb 9.6 oz) BMI: Body mass index is 47.48 kg/m??. BMI Range: Severely Obese Class 2 IBW/lb (Calculated) Female: 110, Recent Weights/Methods 09/23/2023 0550 09/24/2023 0805 09/25/2023 0502 09/26/2023 0512 09/27/2023 0537 09/27/2023 0824 09/28/2023 0550 09/29/2023 0540 Weight: 114.7 kg (252 lb 12.8 oz) 114.8 kg (253 lb) 116.3 kg (256 lb 6.4 oz) 117.7 kg (259 lb 6.4 oz) 118.5 kg (261 lb 3.2 oz) 118.4 kg (261 lb) 117.4 kg (258 lb 12.8 oz) 117.8 kg (259 lb 9.6 oz) Weight Method : Standing -- Standing Standing Standing -- Standing Standing Wt Comments: Reviewed & monitoring. Wt trending down Diet order accuracy Current diet order: Regular Current supplement order: Fiber pkt BID Nutrition recommendation: agree with current nutrition order P.O.Intake for the past 48 hrs: % Meal Taken Av % Min: 95 % Max: 95 % Supplement(s) Consumed- Last 48 hours None Food Allergies: No known food allergies GI Concerns: Diarrhea Chewing/Swallowing: None Pain affecting intake: No Estimated Needs: KCAL: 3239-8107 (30-35kcal/kg of IBW) Protein (g): 66-77 (1.2-1.4gm/kg of IBW) Fluid (ml): 1 ml/kcal Needs based on: Kcal/kg- (Comment) (55kg of IBW) Recommended Access Route: PO Laboratory values: Recent Labs Component Name 09/28/23201909/27/23201909/27/23 0048 BUN 5* <5* <5* CREATININE 0.56 0.56 0.63 NA 137 135* 132* POTASSIUM 3.1* 3.4* 3.2* CL 104 101 101 CO2 24 24 23 GLUCOSE 114 106 108 CALCIUM 8.2* 7.9* 7.7* PROT 6.0 5.8* 5.8* ALB 2.2* 2.0* 2.0* TBILI 0.5 0.6 0.7 ALKPHOS 57 52 52 ALT 19 15 13 AST 17 16 11 ANIONGAP 9 10 8 BCR 9 <9 <8 OSMOLALITY 282 <278 <272* AGRATIO 0.6* 0.5* 0.5* EGFR >90 >90 >90 Medications: Current Facility-Administered Medications Medication ??? 0.9% NaCl injection 3 mL And ??? 0.9% NaCl injection 1-10 mL ??? acetaminophen (Tylenol) tablet 650 mg ??? ALPRAZolam (Xanax) tablet 0.25 mg ??? cefepime (Maxipime) 2,000 mg in 0.9% NaCl IV 50 mL IVPB ??? dextrose 10 % IV bolus Or ??? dextrose 10 % IV bolus Or ??? glucagon (Glucagen) injection 1 mg ??? dicyclomine (Bentyl) tablet 20 mg ??? docusate sodium (Colace) solution 50 mg ??? famotidine (Pepcid) tablet 20 mg ??? glucose (Diabetic Use) oral gel ??? guaiFENesin (Robitussin) solution 10 mL ??? heparin lock flush injection 500 Units ??? insulin aspart (NovoLOG) pen 0-4 Units ??? insulin aspart (NovoLOG) pen 0-6 Units ??? medroxyPROGESTERone (Provera) tablet 10 mg ??? melatonin tablet 3 mg ??? ondansetron (disintegrating) (Zofran ODT) tablet 8 mg ??? ondansetron (Zofran) injection 8 mg ??? oxyCODONE (immediate release) (Roxicodone) tablet 5 mg ??? perflutren lipid microsphere (Definity) injection 0.5 mL ??? posaconazole (Noxafil) tablet 300 mg ??? prochlorperazine (Compazine) injection 5 mg ??? simethicone (Mylicon) chew tablet 80 mg ??? sodium - potassium phosphates (K Phos Neutral) tablet 2 tablet ??? valACYclovir (Valtrex) tablet 500 mg Skin/Wound: None Nutrition Care Process (1) Nutrition Diagnostic Statement: Increased nutrient needs related to:: cancer as evidenced by:: estimated protein needs ..;estimated energy needs .. Nutrition Diagnostic Statement Progress: Nutrition problem continues Nutrition Intervention: Meals and snacks: Monitoring: PO intake, labs, weight, BM Evaluation: Nutrition Goal: Total intake will meet estimated nutrient needs Nutrition Goal Timeframe: Throughout stay Nutrition Goal Progress: Continue with current goal Felicia Valencia MS, RD/JUSTINN, LD Ascom: [id number] ST REPRESENTATIVE * Jerel Beach MD - 09/29/2023 12:31 PM CST Ophthalmology Plan of Care: Selvin Mckeon was dilated in both eyesat 11:52am on 09/29/2023 with phenylephrine, tropicamide, and cyclogyl 1%. Dilation may last up to ~24 hours. Please page ophthalmology for any questions. Jerel Beach MD Ophthalmology Resident ST REPRESENTATIVE * Saba Alexander RN - 09/29/2023 11:28 AM CST Problem: Infection Goal: Signs and symptoms of infections are decreased or avoided Outcome: Progressing Problem: Pain/Discomfort Goal: Patient exhibits reduced pain/discomfort as evidenced by pain scores Outcome: Progressing Problem: Fall Risk Goal: Fall risk and fall related injury risk are minimized (interventions related to the fall risk can be found in the flowsheet documentation) Outcome: Progressing Problem: Hemodynamic Status/Cardiac Output Goal: Patient has stable vital signs and fluid balance Outcome: Progressing Problem: Nutrient: Increased nutrient needs (specify) Goal: Total intake will meet estimated nutrient needs Outcome: Progressing ST REPRESENTATIVE * Remington Stafford MD - 09/29/2023 9:43 AM CST Images from the original note were not included. HEMATOLOGY/ONCOLOGY INPATIENT PROGRESS NOTE Name: Selvin Mckeon Age: [age] year old Date of : 1985 Date of Service: 09/29/2023 HEMATOLOGY & ONCOLOGY HISTORY Principal Diagnosis: AML, NPM-1 mut, fav risk Current Therapy: 7 + 3 (cytarabine and idarubicin) Prior Hematology/Oncology History: 09/02/2023: Bone marrow biopsy at [facility] which revealed 78% blasts likely AML. 09/03/2023: Patient transferred to [facility] for further care and evaluation. SUBJECTIVE History of Present Illness Chief Complaint: Concern for AML Interval History: No acute events overnight. Patient resting comfortably in bed this AM with no acute complaints. Denies difficulty breathing and reports she did not require supplemental oxygen overnight. Patient tolerating regular diet without nausea or vomiting. Review of Systems: As noted in HPI. All other systems reviewed and negative. 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 Oncology History No history exists. Active Treatment Days for Selvin Mckeon (until 09/30/2023) There are no remaining days before 09/30/2023. Social History Social History Tobacco Use Smoking status: Former Packs/day: 1 Types: Cigarettes Start date: 2004 Quit date: 2010 Years since quittin.0 Smokeless tobacco: Never Substance Use Topics Alcohol use: Yes Comment: occasional Family History Family History Family history unknown: Yes Medications SCHEDULED MEDICATIONS: 0.9% NaCl injection 3 mL, Intracatheter, q8h cefepime (Maxipime) 2,000 mg in 0.9% NaCl IV 50 mL IVPB, Intravenous, q8h famotidine (Pepcid) tablet 20 mg, Oral, BID insulin aspart (NovoLOG) pen 0-4 Units, Subcutaneous, AT BEDTIME insulin aspart (NovoLOG) pen 0-6 Units, Subcutaneous, TID WC medroxyPROGESTERone (Provera) tablet 10 mg, Oral, QDAY perflutren lipid microsphere (Definity) injection 0.5 mL, Intravenous, intra- Procedure multiple posaconazole (Noxafil) tablet 300 mg, Oral, QDAY WITH DINNER sodium - potassium phosphates (K Phos Neutral) tablet 2 tablet, Oral, BID valACYclovir (Valtrex) tablet 500 mg, Oral, BID [COMPLETED] oxyCODONE (immediate release) (Roxicodone) tablet 5 mg, Oral, Once [COMPLETED] potassium phosphate 30 mmol in d5w 260 mL bolus premix, Intravenous, Once CONTINUOUS MEDICATIONS: PRN MEDICATIONS: Or Or 0.9% NaCl injection 1-10 mL, Intracatheter, PRN acetaminophen (Tylenol) tablet 650 mg, Oral, q6h PRN ALPRAZolam (Xanax) tablet 0.25 mg, Oral, BID PRN dextrose 10 % IV bolus, Intravenous, PRN dextrose 10 % IV bolus, Intravenous, PRN dicyclomine (Bentyl) tablet 20 mg, Oral, TID PRN docusate sodium (Colace) solution 50 mg, Oral, AT BEDTIME PRN glucagon (Glucagen) injection 1 mg, Subcutaneous, PRN glucose (Diabetic Use) oral gel, Oral, PRN guaiFENesin (Robitussin) solution 10 mL, Oral, q6h PRN heparin lock flush injection 500 Units, Intracatheter, PRN melatonin tablet 3 mg, Oral, AT BEDTIME PRN ondansetron (disintegrating) (Zofran ODT) tablet 8 mg, Oral, BID PRN ondansetron (Zofran) injection 8 mg, Intravenous, BID PRN oxyCODONE (immediate release) (Roxicodone) tablet 5 mg, Oral, q6h PRN prochlorperazine (Compazine) injection 5 mg, Intravenous, q6h PRN simethicone (Mylicon) chew tablet 80 mg, Oral, 4X/day PRN Allergies No Known Allergies OBJECTIVE Physical Exam Vitals: 09/28/23 1639 09/28/23 2017 09/29/23 0023 09/29/23 0540 BP: 127/79 139/70 115/67 120/75 Pulse: (!) 115 (!) 115 106 106 Resp: 18 20 20 19 Temp: 97.9 ??F (36.6 ??C) 98.4 ??F (36.9 ??C) 98.3 ??F (36.8 ??C) 98.1 ??F (36.7 ??C) SpO2: 94% 94% 92% 95% Weight: 117.8 kg (259 lb 9.6 oz) Height: 1.575 m (5' 2 ) Wt Readings from Last 3 Encounters: 09/29/23 117.8 kg (259 lb 9.6 oz) ECO General: Resting comfortably in bed, no acute distress Heart: Normal S1, S2. Regular rate and rhythm. Lungs: Symmetric chest rise, clear to auscultation bilaterally Abdomen: Soft, nontender, nondistended. Bowel sounds present. Extremities: 1+ bilateral lower extremity edema Skin: Warm, dry. Psychiatric: Cooperative. Appropriate mood and affect. Laboratory Results Recent Labs Component Name 09/28/23201909/27/23201909/27/23 0048 WBC 2.0* 0.8* 0.5* RBC 2.37* 2.30* 2.29* HGB 7.4* 7.0* 7.1* HCT 20.6* 19.4* 19.1* MCV 86.9 84.3 83.4 MCHC 35.9 36.1 37.2* PLTCOUNT 34* 28* 24* NEUTABS 0.39* 0.42* 0.11* 0.10* 0.04* 0.04* LYMPHABS 1.00 0.48* 0.42* Recent Labs Component Name 09/28/23201909/27/23201909/27/238 POTASSIUM 3.1* 3.4* 3.2* CO2 BUN 5* <5* <5* CREATININE 0.56 0.56 0.63 EGFR >90 >90 >90 GLUCOSE 114 106 108 CALCIUM 8.2* 7.9* 7.7* MAGNESIUM 2.0 2.1 2.1 PHOS 1.8* 1.4* 1.8* ALT 19 15 13 AST 17 16 11 ALKPHOS 57 52 52 Pathology Results RESULT Normal FISH Result inv(3) or t(3;3) RPN1::MECOM Fusion: not detected Deletion 5q: not detected Monosomy 7: not detected Deletion 7q: not detected t(8;21) [id number] Fusion: not detected 11p15 (NUP98) Rearrangement: not detected 11q23 (KMT2A) Rearrangement: not detected inv(16) or t(16;16) CBFB::MYH11 Fusion: not detected INTERPRETATION There was no evidence of RPN1::MECOM fusion due to 3q21/3q26.2 inversion or translocation, deletion 5q31, monosomy 7, deletion 7q31, RUNX1::[id number] fusion due to translocation (8;21)(q21.3;q22), 11p15 (NUP98) [...] only. Flow Cytometry Summary Concurrent flow cytometry ([id number]) shows acute myeloid leukemia. Radiology Results CT ANGIO CHEST PULM EMBOLISM Result Date: 09/23/2023 Impression: 1.Suboptimal evaluation of the pulmonary arteries given phase of contrast. However, within the limitations of this examination, there is suggestion of a small nonocclusive pulmonary embolus in a segmental/subsegmental right lower lobe pulmonary artery. 2.No evidence of acute right heartstrain. 3.Otherwise, no acute pulmonary process. Updated findings verbally relayed to Dr. Helena Hayward at 1019 on 09/23/2023. > Dictated by Kaye Teresa DO (assistant professor of radiology). I, LUDIVINA HAWYARD MD have personally reviewed and interpreted this examination/study. > Interpreting Provider: LUDIVINA HAYWARD MD on 09/23/2023 10:22 AM XR ABDOMEN KUB Result Date: 09/17/2023 IMPRESSION: No gross radiographic evidence of acute intra-abdominal process, however examination isseverely limited due to the patient's morbidly obese body habitus Report dictated by Ivy Corea Dr, MD (assistant professor of radiology). I, Raheem Cazares MD have personally reviewed and interpreted this examination/study. > Interpreting Provider: Raheem Cazares MD on 09/17/2023 2:19 PM IR CENTRAL LINE INSERT TUNNEL Result Date: 09/05/2023 IMPRESSION: Successful Right internal jugular tunneled central venous catheter placement. > Interpreting Provider: Maria G Mortensen MD on 09/05/2023 2:10 PM ASSESSMENT Selvin Mckeon is a 38 year old female who transferred to [facility] on 09/03/2023 for suspected AML. Patient started 7 + 3 (cytarabine and idarubicin) on 09/06/2023. Today is D24 7 + 3 (cytarabine and idarubicin). 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 F on 09/22 #Tachycardia #Acute respiratory failure with hypoxia -Suspected to be due to atelectasis, anemia, possible pulmonary embolism, hypophosphatemia -CT chest PE-Suboptimal evaluation of the pulmonary arteries given phase of contrast. However, within the limitations of this examination, there is suggestion of a small nonocclusive pulmonary embolus in a segmental/subsegmental right lower lobe pulmonary artery. -Duplex venous ultrasound negative for DVT -Blood cx 09/22 no growth at 5 days -CXR 09/28 with unchanged diffuse interstitial prominence, could represent pulmonary vascular congestion and/or interstitial pneumonia no pleural effusion or pneumothorax RECOMMENDATIONS -Discontinue cefepime -Start Levaquin for ppx -Continue to monitor for fevers -Possible discharge tomorrow if patient continues to progress well. Dr. Carias will be primary, patient will need outpatient follow up scheduled prior to discharge. -On posaconazole and valtrex for OI prophylaxis -Given that patient no longer has bleeding per vagina will decrease frequency of medroxyprogesterone to 10 mg daily. Continue for duration of chemo. -Daily CBC w/diff, CMP -Daily weights -Transfusion goals plts > 20 K(in the setting of vaginal bleeding), Hb >7.0, Fibronogen > 100. Please give both leukoreduced and irratiated blood if needed -PRN anti-emetics -Would not recommend anticoagulation given low suspicion for PE, diagnostic imaging nonconclusive. Additionally she has thrombocytopenia. Thank you for the opportunity to participate in the care of this patient. Hem/Onc consult service will continue to follow closely. Please don't hesitate to contact hem/onc consult fellow via the warping mill operator or AMION if any questions or clarifications. Linnette Antonio MS4 Hematology/Oncology Consult Service 09/29/2023 11:35 AM I personally evaluated and examined Selvin Mckeon. I confirmed the aguirre elements of of history and physical examination. I also discussed the assessment and plan in detail with the team on rounds and with the patient. I made some modifications to the above note. I fully concur with the above assessment and plan. Maribel Stafford MD [facility] Department of Internal Medicine Division of Hematology Oncology ST REPRESENTATIVE * Saba Alexander RN - 09/28/2023 10:29 AM CST Problem: Infection Goal: Signs and symptoms of infections are decreased or avoided Outcome: Progressing Problem: Pain/Discomfort Goal: Patient exhibits reduced pain/discomfort as evidenced by pain scores Outcome: Progressing Problem: Fall Risk Goal: Fall risk and fall related injury risk are minimized (interventions related to the fall risk can be found in the flowsheet documentation) Outcome: Progressing Problem: Hemodynamic Status/Cardiac Output Goal: Patient has stable vital signs and fluid balance Outcome: Progressing Problem: Nutrient: Increased nutrient needs (specify) Goal: Total intake will meet estimated nutrient needs Outcome: Progressing ST REPRESENTATIVE * Anita Rios MD - 09/28/2023 9:20 AM CST Images from the original note were not included. HEMATOLOGY/ONCOLOGY INPATIENT PROGRESS NOTE Name: Selvin Mckeon Age: [age] year old Date of : 1985 Date of Service: 09/28/2023 Reason for Consult: AML HEMATOLOGY & ONCOLOGY HISTORY Principal Diagnosis: AML Current Therapy: 7+ 3 Prior Hematology/Oncology History: None SUBJECTIVE History of Present Illness Chief Complaint: Fatigue, flu like symptoms History of Present Illness: Selvin Mckeon is a 38 year old female with no PMH who presented to [facility] presenting with fevers and flu like symptoms, initially thought to have tonsillitis seen on CT face?. Was treated with vanc cefepime and then CTX but had persistent pancytopenia so bone marrow biopsy was done whichshowed 78% blast on the bone marrow flow cytometry. Pt was transferred for concern for AML Formal bone marrow report still pending from [facility] - Lives alone with daughter ( 11 y old) who is currently staying with her dad No PMH of cancers , is adopted so not sure about FH No drugs or smoking or alcohol use Interval hx Patient endorses having coughing bouts and vomiting episodes. Following which she did notice some floaters in eyes. Additionally mentions developing back pain from the coughing bouts. She currently isn't on any supplemental oxygen. Review of Systems: As noted in HPI. All other systems reviewed and negative. Past Medical & Surgical History Patient Active Problem List Diagnosis ??? Acute hypoxic respiratory failure (CMS-HCC) ??? Pulmonary edema ??? Febrile neutropenia (CMS-HCC) ??? Pancytopenia (CMS-HCC) ??? Tonsillitis ??? 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 NEGATIVE PAST MEDICAL HISTORY - SEE PROBLEM LIST Past Surgical History: Procedure Laterality Date ??? Section ??? Cholecystectomy ??? KIDNEY STONES, REMOVAL Social History Social History Tobacco Use ??? Smoking status: Former Packs/day: 1 Types: Cigarettes Start date: 2004 Quit date: 2010 Years since quittin.0 ??? Smokeless tobacco: Never Substance Use Topics ??? Alcohol use: Yes Comment: occasional Family History Family History Family history unknown: Yes Medications SCHEDULED MEDICATIONS: 0.9% NaCl injection 3 mL, Intracatheter, q8h cefepime (Maxipime) 2,000 mg in 0.9% NaCl IV 50 mL IVPB, Intravenous, q8h famotidine (Pepcid) tablet 20 mg, Oral, BID insulin aspart (NovoLOG) pen 0-4 Units, Subcutaneous, AT BEDTIME insulin aspart (NovoLOG) pen 0-6 Units, Subcutaneous, TID WC medroxyPROGESTERone (Provera) tablet 10 mg, Oral, QDAY perflutren lipid microsphere (Definity) injection 0.5 mL, Intravenous, intra- Procedure multiple posaconazole (Noxafil) tablet 300 mg, Oral, QDAY WITH DINNER sodium - potassium phosphates (K Phos Neutral) tablet 2 tablet, Oral, BID valACYclovir (Valtrex) tablet 500 mg, Oral, BID [COMPLETED] potassium phosphate 15 mmol in 250 mL bolus, Intravenous, Once [COMPLETED] potassium phosphate 30 mmol in d5w 260 mL bolus premix, Intravenous, Once CONTINUOUS MEDICATIONS: PRN MEDICATIONS: Or Or 0.9% NaCl injection 1-10 mL, Intracatheter, PRN acetaminophen (Tylenol) tablet 650 mg, Oral, q6h PRN ALPRAZolam (Xanax) tablet 0.25 mg, Oral, BID PRN dextrose 10 % IV bolus, Intravenous, PRN dextrose 10 % IV bolus, Intravenous, PRN dicyclomine (Bentyl) tablet 20 mg, Oral, TID PRN docusate sodium (Colace) solution 50 mg, Oral, AT BEDTIME PRN glucagon (Glucagen) injection 1 mg, Subcutaneous, PRN glucose (Diabetic Use) oral gel, Oral, PRN guaiFENesin (Robitussin) solution 10 mL, Oral, q6h PRN heparin lock flush injection 500 Units, Intracatheter, PRN melatonin tablet 3 mg, Oral, AT BEDTIME PRN ondansetron (disintegrating) (Zofran ODT) tablet 8 mg, Oral, BID PRN ondansetron (Zofran) injection 8 mg, Intravenous, BID PRN oxyCODONE (immediate release) (Roxicodone) tablet 5 mg, Oral, q6h PRN prochlorperazine (Compazine) injection 5 mg, Intravenous, q6h PRN simethicone (Mylicon) chew tablet 80 mg, Oral, 4X/day PRN Allergies No Known Allergies OBJECTIVE Physical Exam Vitals: 09/27/23 2349 09/28/23 0550 09/28/23 0837 09/28/23 1257 BP: 128/76 108/75 98/65 115/82 Pulse: (!) 114 105 103 (!) 118 Resp: 22 19 20 18 Temp: 98.4 ??F (36.9 ??C) 98.3 ??F (36.8 ??C) 98.2 ??F (36.8 ??C) 98.1 ??F (36.7 ??C) SpO2: 91% 99% 99% 90% Weight: 117.4 kg (258 lb 12.8 oz) Height: 1.575 m (5' 2 ) Wt Readings from Last 3 Encounters: 09/28/23 117.4 kg (258 lb 12.8 oz) ECO General: Well-developed . No acute distress. Heart: Normal S1, S2. Regular rate and rhythm. Lungs: Symmetric breath sounds. Clear to auscultation. Decreased basilar lung sounds. No wheezing appreciated. Abdomen: Soft, nontender, nondistended. Bowel sounds present. Extremities: Mild bilateral lower extremity edema Skin: Warm, dry. No rash. Psychiatric: Cooperative. Appropriate mood and affect. Laboratory Results Recent Labs Component Name 09/27/23201909/27/23 0048 09/25/23195309/19/23212904/24 2225 WBC 0.8* 0.5* 0.2* - 0.5* RBC 2.30* 2.29* 2.39* - 2.23* HGB 7.0* 7.1* 7.4* - 7.0* HCT 19.4* 19.1* 19.9* - 19.2* MCV 84.3 83.4 83.3 - 86.1 MCHC 36.1 37.2* 37.2* - 36.5* PLTCOUNT 28* 24* 29* - 27* NEUTABS 0.11* 0.10* 0.04* 0.04* 0.00* - 0.01* 0.00* LYMPHABS 0.48* 0.42* - - 0.50* - = values in this interval not displayed. Recent Labs Component Name 09/27/23201909/27/23 0048 09/26/23 1501 09/26/23 0941 09/25/23 1954 POTASSIUM 3.4* 3.2* 3.5 - 3.2* CO2 24 23 22 - 19* BUN <5* <5* <5* - <5* CREATININE 0.56 0.63 0.57 - 0.64 EGFR >90 >90 >90 - >90 GLUCOSE 106 108 123* - 189* CALCIUM 7.9* 7.7* 7.7* - 7.3* MAGNESIUM 2.1 2.1 - - 2.0 PHOS 1.4* 1.8* 0.8* - 0.9* ALT 15 13 - - 14 AST 16 11 - - 9 ALKPHOS 52 52 - - 45 - = values in this interval not displayed. Pathology Results Personally reviewed and summarized above in Hematology & Oncology History RESULT Normal FISH Result inv(3) or t(3;3) RPN1::MECOM Fusion: not detected Deletion 5q: not detected Monosomy 7: not detected Deletion 7q: not detected t(8;21) RUNX1::ACQX5G1 Fusion: not detected 11p15 (NUP98) Rearrangement: not detected 11q23 (KMT2A) Rearrangement: not detected inv(16) or t(16;16) CBFB::MYH11 Fusion: not detected INTERPRETATION There was no evidence of RPN1::MECOM fusion due to 3q21/3q26.2 inversion or translocation, deletion 5q31, monosomy 7, deletion 7q31, RUNX1::FYNH8W3 fusion due to translocation (8;21)(q21.3;q22), 11p15 (NUP98) [...] flow cytometry () shows acute myeloid leukemia. 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 FISH normal -ECHO 59% EF -FISH AML panel WNL ,Normal karyotype -HIV and hep screen NR -D14 bone marrow demonstrated no morphologic evidence of residual acute myeloid leukemia in a markedly hypocellular bone marrow (5% cellular) -Myeloid malignancy mutation panel-NPM1 31.3%, TET2 69.9%, and RAST 5.2% Suspected TRALI Patient noted to have ??hypoxemic respiratory insufficiency within six hours after blood product administration on 09/25/2023. Patient received platelet transfusion on 09/25/2023 completed at around 4:30 p.m. She received supportive care with oxygen supplementation progression of hypoxemia. Echocardiogram demonstrated EF of 71%. Neutropenic fever, resolved T-max of 101.1?? F Tachycardia Acute respiratory failure with hypoxia Suspected to be due to atelectasis, anemia, possible pulmonary embolism, hypophosphatemia CT chest PE-Suboptimal evaluation of the pulmonary arteries given phase of contrast. However, within the limitations of this examination, there is suggestion of a small nonocclusive pulmonary embolusin a segmental/subsegmental right lower lobe pulmonary artery. Duplex venous ultrasound negative for DVT Chest o-cgb-smebdaoaivwi volume overload? Normal BMP PLAN -Started 7 + 3 09/06/23 , D23 today -Transfusion medicine service notified and requested for initiating an evaluation for a transfusionreaction if needed. -Medroxyprogesterone to 10 mg daily .Continue for duration of chemo . -Daily CBC w/diff, CMP -On posaconazole and valtrex for OI prophylaxis -Continue Cefepime. Follow-up on blood cultures -Dr Carias will be primary -Daily weights - Transfusion goals plts > 20 K(in the setting of vaginal bleeding), Hb >7.0, Fibronogen >100. Please give both leukoreduced and irratiated blood if needed -PRN anti-emetics . Thank you for the opportunity to participate in the care of this patient. Hem/Onc consult service will continue to follow closely. Please don't hesitate to contact hem/onc consult fellow via the warping mill operator or AMION if any questions or clarifications. Anita Rios MD Hematology Oncology Fellow PGY4 [facility] ST REPRESENTATIVE Associated attestation - Alfredito Guajardo MD - 09/28/2023 3:46 PM ARTIST REPRESENTATIVE ATTENDING ATTESTATION Date of service: 09/28/2023 I personally interviewed and examined Selvin Mckeon on rounds with the resident on 09/28/2023. I agree with the findings and plan of care as documented by the resident. In addition, I note: D23 of induction chemotherapy with 7+3 (cytarabine plus idarubicin) for newly diagnosed AML. Day 14 BM flow cytometry and core biopsy negative for residual leukemia. I do not recommend treatment for PE. The scan report was not definitive and she is high risk for anticoagulation. Please order a post transfusion platelet count every time platelets are given. Hypoxic episode Friday temporally related to a 1liter bolus of IVF which was given shortly after a platelet transfusion. Cardiac echo indicates normal heart function. Patient off oxygen this AM with normal saturations. I suspect that the hypoxic episode was TRALI since CHF has been ruled out. Notify blood bank. Alfredito Guajardo MD, PhD Hematology/Oncology * Kate Price DO - 09/28/2023 8:22 AM CST [facility] Medicine Daily Progress Note Name: Selvin Mckeon Age: [age] year old Room: 721/01 Date Admitted: 09/03/2023 Hospital Course: Selvin Mckeon is a 38 year old female with no significant past medical history who presented on 09/03 with fatigue and flu-like symptoms. She was found to have AML and is undergoing induction therapywith 7+3. Hospital course c/b persistent tachycardia, neutropenic fever, and hypoxia. Interval History: No transfusion needs overnight. Hgb and plt count remain stable. Ms. Mckeon reports continued coughing and some congestion despite improvement in dyspnea. She is now on RA. She reports sharp bilateral back pain that is worsening since vomiting yesterday. No bleeding with emesis, urination or bowel movements. She has additional noted floater in the R visual field, without vision blurring or loss. Objective: Patient Vitals for the past 6 hrs: Temp Pulse Resp BP BP Method 09/28/23 0550 98.3 ??F (36.8 ??C) 105 19 108/75 Automatic Estimated body mass index is 47.34 kg/m?? as calculated from the following: Height as of this encounter: 1.575 m (5' 2 ). Weight as of this encounter: 117.4 kg (258 lb 12.8 oz). Physical Exam: General: Alert, ambulatory without assistance, cooperative, no distress, appears stated age. Posterior hair loss. Eyes: Conjunctivae clear. EOMI. No conjunctival injection. Neck: RIJ in place without surrounding erythema or pain Lungs: Clear to auscultation bilaterally. No increased work of breathing Heart: Tachycardic Abdomen: Soft, non-tender. Bowel sounds normal. Back: Hypertonicity noted in the thoracic paraspinal musculature bilaterally, pain improved with soft tissue massage Extremities: Resolving pitting edema in the LE bilaterally Neuro: Answering questions appropriately with clear speech Labs: Recent Labs Component Name 09/27/23201909/14/23214909/13/232051 WBC 0.8* - 0.5* HGB 7.0* - 7.4* HCT 19.4* - 20.0* NA 135* - 138 CL 101 - 108* BUN <5* - 10 CREATININE 0.56 - 0.66 PHOS 1.4* - - CALCIUM 7.9* - 8.4 PT - - 13.1 INR - - 1.0 AST 16 - 15 ALT 15 - 40 ALKPHOS 52 - 55 TBILI 0.6 - 0.5 - = values in this interval not displayed. 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 (CMS-HCC) (POA: Yes) Pancytopenia (CMS-HCC) (POA: Yes) Tonsillitis (POA: Yes) Acute hypoxic respiratory failure (CMS-HCC) (POA: No) Pulmonary edema (POA: No) Febrile neutropenia (CMS-HCC) (POA: No) AML c/b pancytopenia and febrile neutropenia BMBx at [place] with 78% blasts, final report with 90% blast consistent with AML Day 14 BMBx without evidence of residual AML - D22 7+3 - medroxyprogesterone decreased to 10mg daily per oncology recommendations for menstrual bleeding - monitor daily labs, transfuse plt <20, Hgb <7; both leukoreduced and irradiated blood if needed - continue posaconazole and valtrex for OI prophylaxis - continue cefepime, follow blood cultures, monitor for recurrent fever Acute respiratory failure with hypoxia, resolved Sinus tachycardia Possible new PE - holding anticoagulation given elevated risk in setting of thrombocytopenia, once platelets recover will need reevaluation for need of AC vs repeat CT PE - repeat TTE with normal RV, continue telemetry - symptoms improving, monitor for additional lasix needs Cough - repeat CXR, consider repeat RVP, last obtained negative 09/22 Back pain - likely MSK in setting of nausea and vomiting, rule out new consolidation - improved with palpation during exam, given heat pack PRN Visual changes - no changes on examination today or evidence of trauma/vision loss; consider ophthalmology involvement if symptoms persist or worsen Hypokalemia Hypophosphatemia - repeat as indicated Tonsillitis, resolved - status post course of augmentin FEN: Electrolytes replaced with goal of K>4, Phos>3, Mag>2. Diet: Regular PPx: holding chemical ppx in setting of thrombocytopenia Disposition: Inpatient Code Status: Full Kate Price DO ST REPRESENTATIVE * Valentín Mckeon RN - 09/28/2023 7:55 AM CST Problem: Infection Goal: Signs and symptoms of infections are decreased or avoided Outcome: Progressing Problem: Pain/Discomfort Goal: Patient exhibits reduced pain/discomfort as evidenced by pain scores Outcome: Progressing Problem: Fall Risk Goal: Fall risk and fall related injury risk are minimized (interventions related to the fall risk can be found in the flowsheet documentation) Outcome: Progressing ST REPRESENTATIVE * Saba Alexander RN - 09/27/2023 3:56 PM CST Problem: Infection Goal: Signs and symptoms of infections are decreased or avoided Outcome: Progressing Problem: Pain/Discomfort Goal: Patient exhibits reduced pain/discomfort as evidenced by pain scores Outcome: Progressing Problem: Fall Risk Goal: Fall risk and fall related injury risk are minimized (interventions related to the fall risk can be found in the flowsheet documentation) Outcome: Progressing Problem: Hemodynamic Status/Cardiac Output Goal: Patient has stable vital signs and fluid balance Outcome: Progressing ST REPRESENTATIVE * Kate Price DO - 09/27/2023 9:18 AM CST [facility] Medicine Daily Progress Note Name: Selvin Mckeon Age: [age] year old Room: 721/01 Date Admitted: 09/03/2023 Hospital Course: Selvin Mckeon is a 38 year old female with no significant past medical history who presented on 09/03 with fatigue and flu-like symptoms. She was found to have AML and is undergoing induction therapywith 7+3. Hospital course c/b persistent tachycardia, neutropenic fever, and hypoxia. Interval History: Over the past 24 hours, Ms. Mckeon experienced increase in nausea which is improving. No dyspnea reported today. Overall, feeling well this morning. She denies abdominal pain, constipation, and bleeding outside of small amount of vaginal spotting. Tolerating small meals. Follow up TTE to be performed. Remains on stable O2 supplementation. Objective: Patient Vitals for the past 6 hrs: Temp Pulse Resp BP BP Method 09/27/23 0824 97.9 ??F (36.6 ??C) (!) 121 18 110/72 Automatic 09/27/23 0537 98.3 ??F (36.8 ??C) (!) 125 19 112/81 Automatic Estimated body mass index is 47.74 kg/m?? as calculated from the following: Height as of this encounter: 1.575 m (5' 2 ). Weight as of this encounter: 118.4 kg (261 lb). Physical Exam: General: Alert, cooperative, no distress, appears stated age. Posterior hair loss. Eyes: Conjunctivae clear. Neck: RIJ in place without surrounding erythema or pain Lungs: Clear to auscultation bilaterally. No increased work of breathing Heart: Tachycardic Abdomen: Soft, non-tender. Bowel sounds normal. Extremities: 1-2+ pitting edema in the feet bilaterally Neuro: Answering questions appropriately with clear speech Labs: Recent Labs Component Name 09/27/23 0048 09/14/23 2150 09/13/232051 WBC 0.5* - 0.5* HGB 7.1* - 7.4* HCT 19.1* - 20.0* NA 132* - 138 CL 101 - 108* BUN <5* - 10 CREATININE 0.63 - 0.66 PHOS 1.8* - - CALCIUM 7.7* - 8.4 PT - - 13.1 INR - - 1.0 AST 11 - 15 ALT 13 - 40 ALKPHOS 52 - 55 TBILI 0.7 - 0.5 - = values in this interval not displayed. 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 (CMS-HCC) (POA: Yes) Pancytopenia (CMS-HCC) (POA: Yes) Tonsillitis (POA: Yes) Acute hypoxic respiratory failure (CMS-HCC) (POA: No) Pulmonary edema (POA: No) Febrile neutropenia (CMS-HCC) (POA: No) AML c/b pancytopenia and febrile neutropenia BMBx at [place] with 78% blasts, final report with 90% blast consistent with AML Day 14 BMBx without evidence of residual AML - D22 7+3 - medroxyprogesterone decreased to 10mg daily per oncology recommendations for menstrual bleeding - monitor daily labs, transfuse plt <20, Hgb <7; both leukoreduced and irradiated blood if needed - continue posaconazole and valtrex for OI prophylaxis - continue cefepime, follow blood cultures, monitor for recurrent fever Acute respiratory failure with hypoxia Sinus tachycardia Possible new PE - holding anticoagulation given elevated risk in setting of thrombocytopenia, once platelets recover will need reevaluation for need of AC vs repeat CT PE - follow repeat TTE, continue telemetry - improved symptoms today, monitor for additional lasix needs Hypokalemia Hypophosphatemia - repeat as indicated Tonsillitis, resolved - status post course of augmentin FEN: Electrolytes replaced with goal of K>4, Phos>3, Mag>2. Diet: Regular PPx: holding chemical ppx in setting of thrombocytopenia Disposition: Inpatient Code Status: Full Kate Price DO ST REPRESENTATIVE * Anita Rios MD - 09/27/2023 8:20 AM CST Images from the original note were not included. HEMATOLOGY/ONCOLOGY INPATIENT PROGRESS NOTE Name: Selvin Mckeon Age: [age] year old Date of : 1985 Date of Service: 09/27/2023 Reason for Consult: AML HEMATOLOGY & ONCOLOGY HISTORY Principal Diagnosis: AML Current Therapy: 7+ 3 Prior Hematology/Oncology History: None SUBJECTIVE History of Present Illness Chief Complaint: Fatigue, flu like symptoms History of Present Illness: Selvin Mckeon is a 38 year old female with no PMH who presented to [facility] presenting with fevers and flu like symptoms, initially thought to have tonsillitis seen on CT face?. Was treated with vanc cefepime and then CTX but had persistent pancytopenia so bone marrow biopsy was done whichshowed 78% blast on the bone marrow flow cytometry. Pt was transferred for concern for AML Formal bone marrow report still pending from [facility] - Lives alone with daughter ( 11 y old) who is currently staying with her dad No PMH of cancers , is adopted so not sure about FH No drugs or smoking or alcohol use Interval hx No acute overnight events. Patient reports having a good night of restful sleep. She feels well compared to yesterday. Currently on 2 L of supplemental oxygen via nasal cannula. Denies any chest pain, wheezing, palpitations, shortness of breath. She did receive 10 mg of oral Lasix yesterday. Review of Systems: As noted in HPI. All other systems reviewed and negative. Past Medical & Surgical History Patient Active Problem List Diagnosis ??? Acute hypoxic respiratory failure (CMS-HCC) ??? Pulmonary edema ??? Febrile neutropenia (CMS-HCC) ??? Pancytopenia (CMS-HCC) ??? Tonsillitis ??? 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 NEGATIVE PAST MEDICAL HISTORY - SEE PROBLEM LIST Past Surgical History: Procedure Laterality Date ??? Section ??? Cholecystectomy ??? KIDNEY STONES, REMOVAL Social History Social History Tobacco Use ??? Smoking status: Former Packs/day: 1 Types: Cigarettes Start date: 2004 Quit date: 2010 Years since quittin.0 ??? Smokeless tobacco: Never Substance Use Topics ??? Alcohol use: Yes Comment: occasional Family History Family History Family history unknown: Yes Medications SCHEDULED MEDICATIONS: 0.9% NaCl injection 3 mL, Intracatheter, q8h cefepime (Maxipime) 2,000 mg in 0.9% NaCl IV 50 mL IVPB, Intravenous, q8h famotidine (Pepcid) tablet 20 mg, Oral, BID insulin aspart (NovoLOG) pen 0-4 Units, Subcutaneous, AT BEDTIME insulin aspart (NovoLOG) pen 0-6 Units, Subcutaneous, TID WC perflutren lipid microsphere (Definity) injection 0.5 mL, Intravenous, intra- Procedure multiple posaconazole (Noxafil) tablet 300 mg, Oral, QDAY WITH DINNER potassium phosphate 15 mmol in 250 mL bolus, Intravenous, Once sodium - potassium phosphates (K Phos Neutral) tablet 2 tablet, Oral, BID valACYclovir (Valtrex) tablet 500 mg, Oral, BID [COMPLETED] sodium phosphate 30 mmol IVPB 260 mL, Intravenous, Once [START ON 09/28/2023] medroxyPROGESTERone (Provera) tablet 10 mg, Oral, QDAY CONTINUOUS MEDICATIONS: PRN MEDICATIONS: Or Or 0.9% NaCl injection 1-10 mL, Intracatheter, PRN acetaminophen (Tylenol) tablet 650 mg, Oral, q6h PRN ALPRAZolam (Xanax) tablet 0.25 mg, Oral, BID PRN dextrose 10 % IV bolus, Intravenous, PRN dextrose 10 % IV bolus, Intravenous, PRN dicyclomine (Bentyl) tablet 20 mg, Oral, TID PRN docusate sodium (Colace) solution 50 mg, Oral, AT BEDTIME PRN glucagon (Glucagen) injection 1 mg, Subcutaneous, PRN glucose (Diabetic Use) oral gel, Oral, PRN heparin lock flush injection 500 Units, Intracatheter, PRN melatonin tablet 3 mg, Oral, AT BEDTIME PRN ondansetron (disintegrating) (Zofran ODT) tablet 8 mg, Oral, BID PRN ondansetron (Zofran) injection 8 mg, Intravenous, BID PRN oxyCODONE (immediate release) (Roxicodone) tablet 5 mg, Oral, q6h PRN prochlorperazine (Compazine) injection 5 mg, Intravenous, q6h PRN simethicone (Mylicon) chew tablet 80 mg, Oral, 4X/day PRN Allergies No Known Allergies OBJECTIVE Physical Exam Vitals: 09/27/23 0013 09/27/23 0537 09/27/23 0824 09/27/23 1239 BP: 105/64 112/81 110/72 118/82 Pulse: (!) 115 (!) 125 (!) 121 (!) 118 Resp: 19 19 18 20 Temp: 98.1 ??F (36.7 ??C) 98.3 ??F (36.8 ??C) 97.9 ??F (36.6 ??C) 98 ??F (36.7 ??C) SpO2: 97% 93% 98% 96% Weight: 118.5 kg (261 lb 3.2 oz) 118.4 kg (261 lb) Height: 1.575 m (5' 2 ) 1.575 m (5' 2 ) Wt Readings from Last 3 Encounters: 09/27/23 118.4 kg (261 lb) ECO General: Well-developed . No acute distress. Heart: Normal S1, S2. Regular rate and rhythm. Lungs: Symmetric breath sounds. Clear to auscultation. Decreased basilar lung sounds. No wheezing appreciated. Abdomen: Soft, nontender, nondistended. Bowel sounds present. Extremities: Mild bilateral lower extremity edema Skin: Warm, dry. No rash. Psychiatric: Cooperative. Appropriate mood and affect. Laboratory Results Recent Labs Component Name 09/27/23 0048 09/25/23195309/25/23 1433 09/19/23 2130 09/18/23 2225 09/18/23 1018 09/17/232028 WBC 0.5* 0.2* 0.2* - 0.5* - 0.6* RBC 2.29* 2.39* 2.70* - 2.23* - 2.57* HGB 7.1* 7.4* 8.2* - 7.0* - 8.1* HCT 19.1* 19.9* 22.4* - 19.2* - 22.2* MCV 83.4 83.3 83.0 - 86.1 - 86.4 MCHC 37.2* 37.2* 36.6* - 36.5* - 36.5* PLTCOUNT 24* 29* 6* - 27* - 8* NEUTABS 0.04* 0.04* 0.00* - - 0.01* 0.00* - 0.01* 0.00* LYMPHABS 0.42* - - - 0.50* - 0.60* - = values in this interval not displayed. Recent Labs Component Name 09/27/23 0048 09/26/23 1501 09/26/23 0941 09/25/23195309/25/23 1404 09/24/232005 POTASSIUM 3.2* 3.5 6.0* 3.2* - 3.7 CO2 23 22 22 19* - 18* BUN <5* <5* <5* <5* - 8 CREATININE 0.63 0.57 0.62 0.64 - 0.76 EGFR >90 >90 >90 >90 - >90 GLUCOSE 108 123* 199* 189* - 146* CALCIUM 7.7* 7.7* 7.8* 7.3* - 8.5 MAGNESIUM 2.1 - - 2.0 - 1.4* PHOS 1.8* 0.8* 6.6* 0.9* - 0.9* ALT 13 - - 14 - 18 AST 11 - - 9 - 8 ALKPHOS 52 - - 45 - 60 - = values in this interval not displayed. Pathology Results Personally reviewed and summarized above in Hematology & Oncology History RESULT Normal FISH Result inv(3) or t(3;3) RPN1::MECOM Fusion: not detected Deletion 5q: not detected Monosomy 7: not detected Deletion 7q: not detected t(8;21) RUNX1::[id number] Fusion: not detected 11p15 (NUP98) Rearrangement: not detected 11q23 (KMT2A) Rearrangement: not detected inv(16) or t(16;16) CBFB::MYH11 Fusion: not detected INTERPRETATION There was no evidence of RPN1::MECOM fusion due to 3q21/3q26.2 inversion or translocation, deletion 5q31, monosomy 7, deletion 7q31, RUNX1::HMAX3N9 fusion due to translocation (8;21)(q21.3;q22), 11p15 (NUP98) [...] only. Flow Cytometry Summary Concurrent flow cytometry ([id number]) shows acute myeloid leukemia. 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 FISH normal -ECHO 59% EF -FISH AML panel WNL ,Normal karyotype -HIV and hep screen NR -D14 bone marrow demonstrated no morphologic evidence of residual acute myeloid leukemia in a markedly hypocellular bone marrow (5% cellular) -Myeloid malignancy mutation panel-NPM1 31.3%, TET2 69.9%, and RAST 5.2% Neutropenic fever, resolved T-max of 101.1?? F Tachycardia Acute respiratory failure with hypoxia Suspected to be due to atelectasis, anemia, possible pulmonary embolism, hypophosphatemia CT chest PE-Suboptimal evaluation of the pulmonary arteries given phase of contrast. However, within the limitations of this examination, there is suggestion of a small nonocclusive pulmonary embolusin a segmental/subsegmental right lower lobe pulmonary artery. Duplex venous ultrasound negative for DVT Chest g-[id number] volume overload? Normal BMP PLAN -Started 7 + 3 09/06/23 , D22 today -Given that patient no longer has bleeding per vagina will decrease frequency of medroxyprogesterone to 10 mg daily .Continue for duration of chemo . -Daily CBC w/diff, CMP -On posaconazole and valtrex for OI prophylaxis -Continue Cefepime. -Follow-up on blood cultures -Dr Carias will be primary -Daily weights - Transfusion goals plts > 20 K(in the setting of vaginal bleeding), Hb >7.0, Fibronogen >100. Please give both leukoreduced and irratiated blood if needed -PRN anti-emetics -Would not recommend anticoagulation given low suspicion for PE, diagnostic imaging nonconclusive. Additionally she has thrombocytopenia. Thank you for the opportunity to participate in the care of this patient. Hem/Onc consult service will continue to follow closely. Please don't hesitate to contact hem/onc consult fellow via the warping mill operator or AMION if any questions or clarifications. Anita Rios MD Hematology Oncology Fellow PGY4 [facility] ST REPRESENTATIVE Associated attestation - Alfredito Guajardo MD - 09/27/2023 8:15 PM ARTIST REPRESENTATIVE ATTENDING ATTESTATION Date of service: 09/27/2023 I personally interviewed and examined Selvin Mckeon on rounds with the resident on 09/27/2023. I agree with the findings and plan of care as documented by the resident. In addition, I note: D22 of induction chemotherapy with 7+3 (cytarabine plus idarubicin) for newly diagnosed AML. Day 14 BM flow cytometry and core biopsy negative for residual leukemia. I do not recommend treatment for PE. The scan report was not definitive and she is high risk for anticoagulation. Please order a post transfusion platelet count every time platelets are given. Hypoxia episode Friday temporally related to a 1liter bolus of IVF which was given shortly after a platelet transfusion. CXR consistent with fluid overload. Cardiac echo done tp, results pending. Patient was comfortable on rounds, but still on oxygen. Alfredito Guajardo MD, PhD Hematology/Oncology * Flor Upton RN - 09/27/2023 4:48 AM CST Problem: Infection Goal: Signs and symptoms of infections are decreased or avoided Outcome: Progressing Problem: Pain/Discomfort Goal: Patient exhibits reduced pain/discomfort as evidenced by pain scores Outcome: Progressing Problem: Fall Risk Goal: Fall risk and fall related injury risk are minimized (interventions related to the fall risk can be found in the flowsheet documentation) Outcome: Progressing Problem: Hemodynamic Status/Cardiac Output Goal: Patient has stable vital signs and fluid balance Outcome: Progressing Problem: Nutrient: Increased nutrient needs (specify) Goal: Total intake will meet estimated nutrient needs Outcome: Progressing ST REPRESENTATIVE * Alfredito Loaiza MD - 09/26/2023 10:16 PM CST ATTENDING PHYSICIAN NOTE ?? Patient seen and examined with the resident. I confirm the history, exam, assessment and plan. In addition I note: ?? Chief complaint: Tachycardia. AML/pancytopenia. ?? History: The patient was originally admitted at [place] with fevers and flu like symptoms.??Was treated with vanc cefepime and then CTX but had persistent pancytopenia so bone marrow biopsy was donewhich showed 78% blast on the bone marrow flow cytometry.??Patient was transferred for further management. On tele the patient has been tachycardic in the 140-160's highest. No arrhythmias noted. EKG shows sinus tachycardia. TTE done shows normal LV size and function. The patient has no known personal or family cardiac hx. AML with severe pancytopenia. Hgb as low as 5-6. Tachycardiac physiologic. 09/26/23 Pleased to understand her heart has responded normally. No cardiac issues. Will sign off and follow prn. Call for any questions or changes. ?? Social History Socioeconomic History Marital status: Tobacco Use Smoking status: Former Packs/day: 1 Types: Cigarettes Start date: 2004 Quit date: 2010 Years since quittin.0 Smokeless tobacco: Never Vaping Use Vaping Use: Never used Substance and Sexual Activity Alcohol use: Yes Comment: occasional Drug use: Never Sexual activity: Yes ? Family history is unknown by patient. ?? No Known Allergies ?? Past Medical History: No date: NEGATIVE PAST MEDICAL HISTORY - SEE PROBLEM LIST ?? A full 12 point review of systems was performed and was otherwise negative besides what was mentioned in the HPI. ?? Exam: BP 121/79 (BP Cuff Size: A) Pulse (!) 128 Temp 98.3 ??F (36.8 ??C) (Oral) Resp 23 Ht 5' 2 Wt 259 lb 6.4 oz SpO2 96% NAD. HEENT: neck supple. Atraumatic. Cor: Tachy/RRR. No JVD. No S3 Resp: clear bilaterally. GI: soft. NT. Ext: no edema ?? Medications were reviewed; please see the resident's note for complete list. ?? Data Review: pertinent lab and cardiac data reviewed ?? Lab Results: Recent Labs Component Name 09/25/23195309/25/23 1433 09/24/232005 WBC 0.2* 0.2* 0.4* HGB 7.4* 8.2* 7.9* HCT 19.9* 22.4* 21.4* PLTCOUNT 29* 6* 15* ?? Recent Labs Component Name 09/26/23 1501 09/26/23 0941 09/25/231953 POTASSIUM 3.5 6.0* 3.2* CO2 22 22 19* BUN <5* <5* <5* CREATININE 0.57 0.62 0.64 GLUCOSE 123* 199* 189* CALCIUM 7.7* 7.8* 7.3* ?? Recent Labs Component Name 09/13/23205109/12/23204509/11/232001 INR 1.0 1.1 1.2 PT 13.1 13.6 14.4 PTT 23.2 20.9* 21.9* ?? Recent Labs Component Name 09/25/23195309/24/23200509/24/23 0108 ALKPHOS 45 60 65 ALT 14 18 18 AST 9 8 6 ?? No results for input(s): TSH in the last 70848 hours. No results for input(s): CKMB , TROPONIN , MYOGLOBIN in the last 06872 hours. Recent Labs Component Name 09/25/23 0014 ZOI3LEF 17.4* FIO2 21.0 ?? No results for input(s): CHOL , HDL , TRIG , LDLCALC in the last 00214 hours. ?? ECG reviewed: GROVER Frost. ?? CXR reviewed: Normal heart and diffuse infiltrates. ?? Assessment/Plan: Tachycardia. AML/pancytopenia. ?? History: The patient was originally admitted at [place] with fevers and flu like symptoms.??Was treated with vanc cefepime and then CTX but had persistent pancytopenia so bone marrow biopsy was donewhich showed 78% blast on the bone marrow flow cytometry.??Patient was transferred for further management. On tele the patient has been tachycardic in the 140-160's highest. No arrhythmias noted. EKG shows sinus tachycardia. TTE done shows normal LV size and function. The patient has no known personal or family cardiac hx. AML with severe pancytopenia. Hgb as low as 5-6. Tachycardiac physiologic. ?? Supportive care only. Reassured heart is functioning normally and responding to stress of condition. 09/26/23 Pleased to understand her heart has responded normally. No cardiac issues. Will sign off and follow prn. Call for any questions or changes. ?? Please see the resident's note for further details. ? Alfredito Loaiza MD, F.A.C.C. ring rolling machine operator ?? 09/26/2023 4:[address] REPRESENTATIVE * Ivis Davison MD - 09/26/2023 4:39 PM CST Internal Medicine Progress Note 09/26/2023 @ 4:39 PM Admit Date: 09/03/2023 - Length of Stay 23 Day(s) Subjective: Examined at bedside. Rapid response called last night for acute desaturation with oxygen saturation 88% started on 2 L NC. Today Patient reports some mild SOB, still on 2 L NC. CXR showing mild interestitial edema. Given small dose of lasix. Objective: Temp: [97.7 ??F (36.5 ??C)-99.3 ??F (37.4 ??C)] 98.3 ??F (36.8 ??C) Pulse: [97-146] 128 Resp: [20-24] 23 BP: (114-135)/(60-83) 121/79 Physical Exam General: NAD. Resting, appears comfortable, 2 L NC HENT: NC/AT Eyes: Anicteric. Non-injected. Chest: No increased work of breathing. Barone at right chest. Mild diffuse crackles Cardiovascular: intact pulses, no JVD elevation, intact S1 and S2 Extremities: no rash wounds or cyanosis Neurological: Alert; conversational and follows commands. Moves all extremities spontaneously without issue. No focal deficits. Psych: Appropriate mood and affect Data reviewed including pertinent labs, imaging, diagnostics. Imaging: Reviewed Assessment/Plan: Principal Problem: 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 ([facility]) Active Problems: Pancytopenia ([facility]) Tonsillitis #Sinus tachycardia #Possible New PE #thrombocytopenia #New oxygen requirement 09/25 -NSR on tele -continue tele monitoring, Mg and K replacement as needed. -negative venous doppler but CT PE showed possible small PE wo right heart strain. -treatment of PE deferred for now, will follow OP oncology. -- cardiology consulted: management of underlying causes -- pulm consulted for management of possible PE, not candidate for IVC filter since no DVT on duplex. Needs re evaluation when platelets count recover vs repeat CTPE -- unable to anti coagulate in setting of very low platelets -- improvement of sinus tachy after hydration however new oxygen requirements and evidence of voluem overload s/p 10 mg Lasix #AML #Pancytopenia #febrile Neutropenia - BMB from OSH noting large proportion of blasts; final report noting AML - Repeat BMB 09/18 to ensure appropriate collection of all testing required prior to treatment - s/p Barone placement to begin chemo - TTE (09/05) unremarkable. -FISH AML panel WNL ,Normal karyotype. HIV and hep screen NR. Oncology team updated about bone marrow biopsy results from [facility] - DCed allopurinol - Continue OI ppx: Posaconazole, Valacyclovir. - Levaquin held as pt started on cefepime for therapy. Will be resumed when febrile neutropenia resolved - medroxyprogesterone 10 in setting of thrombocytopenia and menstrual bleeding. - daily CBC??w/diff, and daily CMP -follow infectious work up - Transfuse for plts < 20 K since vaginal bleed, Hb < 7.0, Fibronogen > 100. Transfuse only leukocyte reduced AND irradiated blood products #Hypokalemia #Hypophosphatemia -replace as needed #Abdominal Pain -- improved #Diarrhea -- resolved - C. diff cancelled -- follow up diarrhea reported yesterday #Tonsillitis-resolved - Noted at OSH, s/p course of Augmentin #Disposition - Per H/O team. Requires multiple weeks inpatient and needs to stay for 28 days of AML induction. Nutrition: Regular diet DVT Prophylaxis: SCDs Code: Full Dispo: expected to stay for 28 days of induction. The best way to reach me is through Secure Chat. Ivis Davison MD 09/26/2023 ST REPRESENTATIVE Associated attestation - Jair Burgess MD - 09/26/2023 7:25 PM ARTIST REPRESENTATIVE I have seen and examined the patient with the resident and I agree with the findings and plan of care as documented by the resident. Date of service 09/26/23 Jair Burgess MD * Anita Rios MD - 09/26/2023 1:29 PM CST Images from the original note were not included. HEMATOLOGY/ONCOLOGY INPATIENT PROGRESS NOTE Name: Selvin Mckeon Age: [age] year old Date of : 1985 Date of Service: 09/26/2023 Reason for Consult: AML HEMATOLOGY & ONCOLOGY HISTORY Principal Diagnosis: AML Current Therapy: 7+ 3 Prior Hematology/Oncology History: None SUBJECTIVE History of Present Illness Chief Complaint: Fatigue, flu like symptoms History of Present Illness: Selvin Mckeon is a 38 year old female with no PMH who presented to [facility] presenting with fevers and flu like symptoms, initially thought to have tonsillitis seen on CT face?. Was treated with vanc cefepime and then CTX but had persistent pancytopenia so bone marrow biopsy was done whichshowed 78% blast on the bone marrow flow cytometry. Pt was transferred for concern for AML Formal bone marrow report still pending from OSH [facility] - Lives alone with daughter ( 11 y old) who is currently staying with her dad No PMH of cancers , is adopted so not sure about FH No drugs or smoking or alcohol use Interval hx Patient noted to have tachycardia and low oxygen saturations overnight. Based on chart review she was noted to have wheezing. Placed on supplemental oxygen. During my encounter with the patient this morning she appears to be slightly short of breath, mentions that she had just walk from the bathroom and felt short of breath. Denied any chest pain, fever, palpitations. Has not had any worsening vaginal bleeding. Review of Systems: As noted in HPI. All other systems reviewed and negative. Past Medical & Surgical History Patient Active Problem List Diagnosis ??? Pancytopenia (CMS-HCC) ??? Tonsillitis ??? 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 NEGATIVE PAST MEDICAL HISTORY - SEE PROBLEM LIST Past Surgical History: Procedure Laterality Date ??? Section ??? Cholecystectomy ??? KIDNEY STONES, REMOVAL Social History Social History Tobacco Use ??? Smoking status: Former Packs/day: 1 Types: Cigarettes Start date: 2004 Quit date: 2010 Years since quittin.0 ??? Smokeless tobacco: Never Substance Use Topics ??? Alcohol use: Yes Comment: occasional Family History Family History Family history unknown: Yes Medications SCHEDULED MEDICATIONS: 0.9% NaCl injection 3 mL, Intracatheter, q8h cefepime (Maxipime) 2,000 mg in 0.9% NaCl IV 50 mL IVPB, Intravenous, q8h famotidine (Pepcid) tablet 20 mg, Oral, BID insulin aspart (NovoLOG) pen 0-4 Units, Subcutaneous, AT BEDTIME insulin aspart (NovoLOG) pen 0-6 Units, Subcutaneous, TID WC medroxyPROGESTERone (Provera) tablet 10 mg, Oral, TID perflutren lipid microsphere (Definity) injection 0.5 mL, Intravenous, intra- Procedure multiple posaconazole (Noxafil) tablet 300 mg, Oral, QDAY WITH DINNER sodium - potassium phosphates (K Phos Neutral) tablet 2 tablet, Oral, BID valACYclovir (Valtrex) tablet 500 mg, Oral, BID [COMPLETED] 0.9% NaCl IV bolus, Intravenous, Once [COMPLETED] 0.9% NaCl IV bolus, Intravenous, Once [COMPLETED] 0.9% NaCl IV bolus, Intravenous, Once [COMPLETED] furosemide (Lasix) tablet 10 mg, Oral, Once [COMPLETED] magnesium sulfate 4 g in 100 mL bolus, Intravenous, Once [COMPLETED] potassium chloride ER (Klor-Con M) tablet 40 mEq, Oral, Once [COMPLETED] potassium chloride ER (Klor-Con M) tablet 40 mEq, Oral, Once [COMPLETED] potassium phosphate 30 mmol in d5w 260 mL bolus premix, Intravenous, Once [COMPLETED] sodium phosphate 40 mmol in dextrose 5 % 263.3 mL bolus, Intravenous, Once CONTINUOUS MEDICATIONS: PRN MEDICATIONS: Or Or 0.9% NaCl infusion rate and volume, Intravenous, Once PRN 0.9% NaCl infusion rate and volume, Intravenous, Once PRN 0.9% NaCl injection 1-10 mL, Intracatheter, PRN acetaminophen (Tylenol) tablet 650 mg, Oral, q4h PRN acetaminophen (Tylenol) tablet 650 mg, Oral, q6h PRN ALPRAZolam (Xanax) tablet 0.25 mg, Oral, BID PRN dextrose 10 % IV bolus, Intravenous, PRN dextrose 10 % IV bolus, Intravenous, PRN dicyclomine (Bentyl) tablet 20 mg, Oral, TID PRN docusate sodium (Colace) solution 50 mg, Oral, AT BEDTIME PRN glucagon (Glucagen) injection 1 mg, Subcutaneous, PRN glucose (Diabetic Use) oral gel, Oral, PRN heparin lock flush injection 500 Units, Intracatheter, PRN melatonin tablet 3 mg, Oral, AT BEDTIME PRN ondansetron (disintegrating) (Zofran ODT) tablet 8 mg, Oral, BID PRN ondansetron (Zofran) injection 8 mg, Intravenous, BID PRN oxyCODONE (immediate release) (Roxicodone) tablet 5 mg, Oral, q6h PRN prochlorperazine (Compazine) injection 5 mg, Intravenous, q6h PRN simethicone (Mylicon) chew tablet 80 mg, Oral, 4X/day PRN Allergies No Known Allergies OBJECTIVE Physical Exam Vitals: 09/26/23 0517 09/26/23 0740 09/26/23 0744 09/26/23 1203 BP: 120/83 131/76 Pulse: 107 (!) 119 (!) 134 Resp: 24 23 23 Temp: 98 ??F (36.7 ??C) 98.4 ??F (36.9 ??C) SpO2: 93% 94% 95% Weight: Height: Wt Readings from Last 3 Encounters: 09/26/23 117.7 kg (259 lb 6.4 oz) ECO General: Well-developed . No acute distress. Heart: Normal S1, S2. Regular rate and rhythm. Lungs: Symmetric breath sounds. Clear to auscultation. Decreased basilar lung sounds. No wheezing appreciated. Abdomen: Soft, nontender, nondistended. Bowel sounds present. Extremities: Mild bilateral lower extremity edema Skin: Warm, dry. No rash. Psychiatric: Cooperative. Appropriate mood and affect. Laboratory Results Recent Labs Component Name 09/25/23195309/25/23 1433 09/24/23200509/24/238 09/19/23212909/18/235 09/18/238 09/17/23202809/16/232019 WBC 0.2* 0.2* 0.4* 0.3* - 0.5* - 0.6* 0.6* RBC 2.39* 2.70* 2.55* 2.38* - 2.23* - 2.57* 2.65* HGB 7.4* 8.2* 7.9* 7.4* - 7.0* - 8.1* 8.3* HCT 19.9* 22.4* 21.4* 19.8* - 19.2* - 22.2* 23.1* MCV 83.3 83.0 83.9 83.2 - 86.1 - 86.4 87.2 MCHC 37.2* 36.6* 36.9* 37.4* - 36.5* - 36.5* 35.9 PLTCOUNT 29* 6* 15* 18* - 27* - 8* 13* NEUTABS 0.00* - 0.01* 0.01* - 0.01* 0.00* - 0.01* 0.00* 0.05* 0.01* LYMPHABS - - - - - 0.50* - 0.60* 0.59* - = values in this interval not displayed. Recent Labs Component Name 09/26/23 0941 09/25/23195309/25/23 1404 09/24/23200509/24/23 0108 POTASSIUM 6.0* 3.2* 3.5 3.7 3.1* CO2 22 19* 19* 18* 22 BUN <5* <5* 5* 8 5* CREATININE 0.62 0.64 0.70 0.76 0.69 EGFR >90 >90 >90 >90 >90 GLUCOSE 199* 189* 158* 146* 134* CALCIUM 7.8* 7.3* 7.8* 8.5 8.5 MAGNESIUM - 2.0 - 1.4* 1.7 PHOS 6.6* 0.9* - 0.9* 1.6* ALT - 14 - 18 18 AST - 9 - 8 6 ALKPHOS - 45 - 60 65 Pathology Results Personally reviewed and summarized above in Hematology & Oncology History RESULT Normal FISH Result inv(3) or t(3;3) RPN1::MECOM Fusion: not detected Deletion 5q: not detected Monosomy 7: not detected Deletion 7q: not detected t(8;21) [id number] Fusion: not detected 11p15 (NUP98) Rearrangement: not detected 11q23 (KMT2A) Rearrangement: not detected inv(16) or t(16;16) CBFB::MYH11 Fusion: not detected INTERPRETATION There was no evidence of RPN1::MECOM fusion due to 3q21/3q26.2 inversion or translocation, deletion 5q31, monosomy 7, deletion 7q31, RUNX1::[id number] fusion due to translocation (8;21)(q21.3;q22), 11p15 (NUP98) [...] flow cytometry () shows acute myeloid leukemia. 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 FISH normal -ECHO 59% EF -FISH AML panel WNL ,Normal karyotype -HIV and hep screen NR -D14 bone marrow demonstrated no morphologic evidence of residual acute myeloid leukemia in a markedly hypocellular bone marrow (5% cellular) -Myeloid malignancy mutation panel-NPM1 31.3%, TET2 69.9%, and RAST 5.2% Neutropenic fever, resolved T-max of 101.1?? F Tachycardia Acute respiratory failure with hypoxia Suspected to be due to atelectasis, anemia, possible pulmonary embolism, hypophosphatemia CT chest PE-Suboptimal evaluation of the pulmonary arteries given phase of contrast. However, within the limitations of this examination, there is suggestion of a small nonocclusive pulmonary embolusin a segmental/subsegmental right lower lobe pulmonary artery. Duplex venous ultrasound negative for DVT Chest a-gpj-vysppxuudjri volume overload? Normal BMP PLAN -Started 7 + 3 09/06/23 , D21 today -On medroxyprogesterone 10 mg TID for menstrual bleeding as thrombocytopenia. Were consider down titrating depending on bleeding severity. Continue for duration of chemo . -Daily CBC w/diff, CMP -On posaconazole and valtrex for OI prophylaxis -Continue Cefepime. -Follow-up on blood cultures -Dr Carias will be primary -follow-up on echo results -Daily weights -repeat BMP and phosphorus levels. - Transfusion goals plts > 20 K(in the setting of vaginal bleeding), Hb >7.0, Fibronogen >100. Please give both leukoreduced and irratiated blood if needed -PRN anti-emetics -Would not recommend anticoagulation given low suspicion for PE, diagnostic imaging nonconclusive. Additionally she has thrombocytopenia. Thank you for the opportunity to participate in the care of this patient. Hem/Onc consult service will continue to follow closely. Please don't hesitate to contact hem/onc consult fellow via the warping mill operator or AMION if any questions or clarifications. Anita Rios MD Hematology Oncology Fellow PGY4 [facility] ST REPRESENTATIVE Associated attestation - Alfredito Guajardo MD - 09/26/2023 5:57 PM ARTIST REPRESENTATIVE ATTENDING ATTESTATION Date of service: 09/26/2023 I personally interviewed and examined Selvin Mckeon on rounds with the resident on 09/26/2023. I agree with the findings and plan of care as documented by the resident. In addition, I note: D21 of induction chemotherapy with 7+3 (cytarabine plus idarubicin) for newly diagnosed AML. BM flow cytometryand core biopsy negative for residual leukemia. First neutropenic fever, cultured and started on cefepime per protocol. Persistently tachycardic. Continue supportive care and follow neutropenic protocol. Afebrile since the one time fever on Friday. I do not recommend treatment for PE. The scan report was not definitive and she is high risk for anticoagulation. Please order a post transfusion plate let count every time platelets are given. Hypoxic episode last night temporally related to a 1 liter bolus of IVF which was given shortly after a platelet transfusion. CXR consistent with fluid overload. Cardiac echo done yesterday, results pending. Patient was comfortable on rounds, but still on oxygen. Agree with gentle diuresis. Alfredito Guajardo MD, PhD Hematology/Oncology * Cheryl Torres, RN - 09/26/2023 9:53 AM CST Rapid [place] [address] Patient: Selvin Mckeon : 1985 Location: 1/ Rapid Response Nurse completed morning rounds. Pt had previous rapid response called for SOB and [id number]. At this time pt lying in bed resting with eyes closed- respirations even and unlabored on 2L NC. monitor and storage bin tender checked- pt is sinus tachycardia with a rate 100s-110s. No acute distress noted at this time. No new concerns from chargemaster analyst. All other VS as charted. Please reach out toRRT for any questions or concerns regarding this pt. Vital Signs: Patient Vitals for the past 6 hrs: Temp Pulse Resp BP 09/26/23 0744 98 ??F (36.7 ??C) -- -- -- 09/26/23 0740 -- (!) 119 23 120/83 09/26/23 0517 -- 107 24 -- Cheryl R Torres, RN Rapid Response Nurse [id number] ST REPRESENTATIVE * Queta Moreno RN - 09/26/2023 4:10 AM CST Problem: Hemodynamic Status/Cardiac Output Goal: Patient has stable vital signs and fluid balance Outcome: Progressing Problem: Fall Risk Goal: Fall risk and fall related injury risk are minimized (interventions related to the fall risk can be found in the flowsheet documentation) Outcome: Progressing Problem: Pain/Discomfort Goal: Patient exhibits reduced pain/discomfort as evidenced by pain scores Outcome: Progressing Problem: Infection Goal: Signs and symptoms of infections are decreased or avoided Outcome: Progressing ST REPRESENTATIVE * Queta Moreno RN - 09/26/2023 2:54 AM CST Patient found 2344 satting at 77% on RA with auditory inspiratory and expiratory wheezing, tachy to147. Patient moved into high fowlers position, and encouraged deep breathing, SpO2 recovered to 85%on RA. Placed patient on 3L NC, satting at 98%. Titrated O2 to 2L, satting at 93%. Attempted to titrate to 1L, patient desatted to 87%. Increased O2 back to 3L, patient satting at 93%. Functional Architect contacted covering provider, El Leigh. Discussed patient's decline in status, desatting, SOB, wheezing and asked provider if they wanted to assess patient at bedside - provider declinedand instructed ad copy writer to continue to supplemental O2 via NC, no new orders. Functional Architect contacted RT to assess patient's breathing at bedside, present bedside, no new recommendations. Functional Architect also contacted rapid response nurse who assessed patient previous night d/t tachycardia and SOB. Rapid response nurse encouraged ad copy writer to titrate supplemental O2 to maintain in mid 90's- if requiring >6L NC, may contact rapid response nurse again for further assessment. Patient currently resting comfortably in bed on 2L NC, satting at 95%. Patient has been tachy into 150's-160's recently - after applying supplemental oxygen, patient's telemetry maintaining between 90's-110's which is patient's original BL upon admission. ST REPRESENTATIVE * Fabio Ruiz RN - 09/25/2023 11:10 PM CST Rapid Response Nurse Rounding Note [address] [address] Patient: Selvin Mckeon : 1985 Location: Rapid Response Nurse ([employer]) completed evening rounds and found the pt to be stable with no obvious concerns from the primary or charge nurse. [employer] will continue to be available for any changes in pt condition Vital Signs: Patient Vitals for the past 6 hrs: Temp Pulse Resp BP BP Method 09/26/23 0346 97.7 ??F (36.5 ??C) (!) 113 22 123/75 Automatic 09/26/23 0256 -- 97 20 -- -- 09/26/23 0222 98 ??F (36.7 ??C) (!) 115 24 -- -- 09/26/23 0115 -- (!) 116 -- -- -- 09/26/23 0021 -- (!) 122 -- -- -- 09/26/23 0008 -- (!) 139 -- -- -- 09/25/23 2346 99.3 ??F (37.4 ??C) (!) 146 24 114/60 Automatic Fabio Ruiz RN Rapid Response Nurse [id number] ST REPRESENTATIVE * Gui Edwards RN - 09/25/2023 6:23 PM CST Problem: Pain/Discomfort Goal: Patient exhibits reduced pain/discomfort as evidenced by pain scores Outcome: Progressing ST REPRESENTATIVE * Ivis Davison MD - 09/25/2023 3:36 PM CST Internal Medicine Progress Note 09/25/2023 @ 3:36 PM Admit Date: 09/03/2023 - Length of Stay 22 Day(s) Subjective: Examined at bedside. Pateint reports having chest pain last night. Per chart review, ABGs were done. Today patient reports that chest pain is gone but she still feels palpiattions. HR in the 140s, given 250 cc HR decreased to 136. Tachypneic, not on oxygen. pulm and cardiology consulted. Objective: Temp: [98.3 ??F (36.8 ??C)-99.1 ??F (37.3 ??C)] 98.3 ??F (36.8 ??C) Pulse: [131-157] 136 Resp: [20-32] 22 BP: (112-132)/(74-99) 121/75 Physical Exam General: NAD. Resting, appears comfortable HENT: NC/AT Eyes: Anicteric. Non-injected. Chest: No increased work of breathing. Barone at right chest. Cardiovascular: intact pulses, no JVD elevation, intact S1 and S2 Extremities: no rash wounds or cyanosis Neurological: Alert; conversational and follows commands. Moves all extremities spontaneously without issue. No focal deficits. Psych: Appropriate mood and affect Data reviewed including pertinent labs, imaging, diagnostics. 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 -NSR on tele so far -continue tele monitoring, Mg and K replacement as needed. -negative venous doppler but CT PE showed small PE wo right heart strain. -treatment of PE deferred for now, will follow OP oncology. -- cardiology consulted: management of underlying causes -- pulm consulted for possible thrombectomy -- unable to anti coagulate in setting of very low platelets #AML #Pancytopenia #febrile Neutropenia - BMB from OSH noting large proportion of blasts; final report noting AML - Repeat BMB 09/18 to ensure appropriate collection of all testing required prior to treatment - s/p Barone placement to begin chemo - TTE (09/05) unremarkable. -FISH AML panel WNL ,Normal karyotype. HIV and hep screen NR. Oncology team updated about bone marrow biopsy results from [facility] - DCed allopurinol - Continue OI ppx: Posaconazole, Valacyclovir. - Levaquin held as pt started on cefepime for therapy. Will be resumed when febrile neutropenia resolved - medroxyprogesterone 10 in setting of thrombocytopenia and menstrual bleeding. - daily CBC??w/diff, and daily CMP, Uric Acid, -follow infectious work up - Transfuse for plts < 10 K, Hb < 7.0, Fibronogen > 100. Transfuse only leukocyte reduced AND irradiated blood products #Hypokalemia #Hypophosphatemia -replace as needed #Abdominal Pain -- improved #Diarrhea -- resolved - C. diff cancelled -- follow up diarrhea reported today #Tonsillitis-resolved - Noted at OSH, s/p course of Augmentin #Disposition - Per H/O team. Requires multiple weeks inpatient and needs to stay for 28 days of AML induction. Nutrition: Regular diet DVT Prophylaxis: SCDs Code: Full Dispo: expected to stay for 28 days of induction. The best way to reach me is through Secure Chat. Ivis Davison MD 09/25/2023 ST REPRESENTATIVE Associated attestation - Jair Burgess MD - 09/26/2023 9:34 AM ARTIST REPRESENTATIVE I have seen and examined the patient with the resident and I agree with the findings and plan of care as documented by the resident. Date of service 09/25/2023 Jair Burgess MD * Gaurav Moyer - 09/25/2023 3:07 PM CST Music Therapy Progress Note Start Time: 1340 End Time: 1410 Music Therapy Goals: Increase relaxation and Increase meaningful social interaction Intervention Provided: Provide familiar / significant music and Provide opportunities for social interaction Therapy Type: Individual Therapy Patient Response: Appropriate Affect: Mood, appropriate Treatment Modality: Music Therapy Music Therapist Gaurav Moyer visited patient in [facility] room. Patient was observed sitting up in chair, alert and oriented. During interventions, Patient sang, made eye contact, smiled, and moved in time with the music. Patient engaged in emotional expression after each intervention. At conclusion of session, no nonverbal indicators of distress observed. ERLINDA Philip, MT-BC 09/25/2023 3:[address] REPRESENTATIVE * Anita Rios MD - 09/25/2023 8:11 AM CST Images from the original note were not included. HEMATOLOGY/ONCOLOGY INPATIENT PROGRESS NOTE Name: Selvin Mckeon Age: [age] year old Date of : 1985 Date of Service: 09/25/2023 Reason for Consult: AML HEMATOLOGY & ONCOLOGY HISTORY Principal Diagnosis: AML Current Therapy: 7+ 3 Prior Hematology/Oncology History: None SUBJECTIVE History of Present Illness Chief Complaint: Fatigue, flu like symptoms History of Present Illness: Selvin Mckeon is a 38 year old female with no PMH who presented to [facility] presenting with fevers and flu like symptoms, initially thought to have tonsillitis seen on CT face?. Was treated with vanc cefepime and then CTX but had persistent pancytopenia so bone marrow biopsy was done whichshowed 78% blast on the bone marrow flow cytometry. Pt was transferred for concern for AML Formal bone marrow report still pending from OSH [facility] - Lives alone with daughter ( 11 y old) who is currently staying with her dad No PMH of cancers , is adopted so not sure about FH No drugs or smoking or alcohol use Interval hx Patient noted to have tachycardia overnight. She reports not sleeping well enough at due to frequent waking up at night for lab draws.Patient reports noticing clots yesterday per vagina on wiping after urinating. She was started on medroxyprogesterone 10 mg 3 times daily instead of daily. As of today no further spotting or bleeding noted. Received 1 unit of PRBC and platelet. Review of Systems: As noted in HPI. All other systems reviewed and negative. Past Medical & Surgical History Patient Active Problem List Diagnosis ??? Pancytopenia (CMS-HCC) ??? Tonsillitis ??? 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 NEGATIVE PAST MEDICAL HISTORY - SEE PROBLEM LIST Past Surgical History: Procedure Laterality Date ??? Section ??? Cholecystectomy ??? KIDNEY STONES, REMOVAL Social History Social History Tobacco Use ??? Smoking status: Former Packs/day: 1 Types: Cigarettes Start date: 2004 Quit date: 2010 Years since quittin.0 ??? Smokeless tobacco: Never Substance Use Topics ??? Alcohol use: Yes Comment: occasional Family History Family History Family history unknown: Yes Medications SCHEDULED MEDICATIONS: 0.9% NaCl injection 3 mL, Intracatheter, q8h cefepime (Maxipime) 2,000 mg in 0.9% NaCl IV 50 mL IVPB, Intravenous, q8h famotidine (Pepcid) tablet 20 mg, Oral, BID medroxyPROGESTERone (Provera) tablet 10 mg, Oral, TID perflutren lipid microsphere (Definity) injection 0.5 mL, Intravenous, intra- Procedure multiple posaconazole (Noxafil) tablet 300 mg, Oral, QDAY WITH DINNER potassium chloride (Klor-Con) packet 40 mEq, Oral, BID WC sodium - potassium phosphates (K Phos Neutral) tablet 1 tablet, Oral, BID sodium phosphate 40 mmol in dextrose 5 % 263.3 mL bolus, Intravenous, Once valACYclovir (Valtrex) tablet 500 mg, Oral, BID [COMPLETED] 0.9% NaCl IV bolus, Intravenous, Once [COMPLETED] magnesium oxide (Mag-Ox) tablet 400 mg, Oral, Once [COMPLETED] magnesium sulfate 4 g in 100 mL bolus, Intravenous, Once [COMPLETED] sodium - potassium phosphates (K Phos Neutral) tablet 1 tablet, Oral, Once [] iopamidol (Isovue 370) 76 % contrast, Intravenous, Contrast - Once CONTINUOUS MEDICATIONS: PRN MEDICATIONS: 0.9% NaCl infusion rate and volume, Intravenous, Once PRN 0.9% NaCl injection 1-10 mL, Intracatheter, PRN acetaminophen (Tylenol) tablet 650 mg, Oral, q4h PRN acetaminophen (Tylenol) tablet 650 mg, Oral, q6h PRN ALPRAZolam (Xanax) tablet 0.25 mg, Oral, BID PRN dicyclomine (Bentyl) tablet 20 mg, Oral, TID PRN docusate sodium (Colace) solution 50 mg, Oral, AT BEDTIME PRN heparin lock flush injection 500 Units, Intracatheter, PRN melatonin tablet 3 mg, Oral, AT BEDTIME PRN ondansetron (disintegrating) (Zofran ODT) tablet 8 mg, Oral, BID PRN ondansetron (Zofran) injection 8 mg, Intravenous, BID PRN oxyCODONE (immediate release) (Roxicodone) tablet 5 mg, Oral, q6h PRN prochlorperazine (Compazine) injection 5 mg, Intravenous, q6h PRN simethicone (Mylicon) chew tablet 80 mg, Oral, 4X/day PRN Allergies No Known Allergies OBJECTIVE Physical Exam Vitals: 09/25/23 1302 09/25/23 1305 09/25/23 1307 09/25/23 1451 BP: 129/77 122/77 121/75 Pulse: (!) 136 Resp: Temp: SpO2: Weight: Height: Wt Readings from Last 3 Encounters: 09/25/23 116.3 kg (256 lb 6.4 oz) ECO General: Well-developed . No acute distress. Heart: Normal S1, S2. Regular rate and rhythm. Lungs: Symmetric breath sounds. Clear to auscultation. Nonlabored respirations. Abdomen: Soft, nontender, nondistended. Bowel sounds present. Extremities: No clubbing or edema. Skin: Warm, dry. No rash. Psychiatric: Cooperative. Appropriate mood and affect. Laboratory Results Recent Labs Component Name 09/24/23 2006 09/24/23 0108 09/23/23 1406 09/23/23 0209 09/19/23 2130 09/18/23 2225 09/18/23 1018 09/17/23202809/16/232019 WBC 0.4* 0.3* 0.2* 0.2* - 0.5* - 0.6* 0.6* RBC 2.55* 2.38* 2.36* 2.43* - 2.23* - 2.57* 2.65* HGB 7.9* 7.4* 7.2* 7.6* - 7.0* - 8.1* 8.3* HCT 21.4* 19.8* 19.6* 20.3* - 19.2* - 22.2* 23.1* MCV 83.9 83.2 83.1 83.5 - 86.1 - 86.4 87.2 MCHC 36.9* 37.4* 36.7* 37.4* - 36.5* - 36.5* 35.9 PLTCOUNT 15* 18* 18* 8* - 27* - 8* 13* NEUTABS 0.01* 0.01* - 0.00* - 0.01* 0.00* - 0.01* 0.00* 0.05* 0.01* LYMPHABS - - - - - 0.50* - 0.60* 0.59* - = values in this interval not displayed. Recent Labs Component Name 09/25/23 1404 09/24/23200509/24/23 0108 09/22/23 2221 POTASSIUM 3.5 3.7 3.1* 3.8 CO2 19* 18* 22 20* BUN 5* 8 5* 5* CREATININE 0.70 0.76 0.69 0.66 EGFR >90 >90 >90 >90 GLUCOSE 158* 146* 134* 142* CALCIUM 7.8* 8.5 8.5 8.6 MAGNESIUM - 1.4* 1.7 1.6 PHOS - 0.9* 1.6* 1.2* ALT - 18 18 27 AST - 8 6 8 ALKPHOS - 60 65 62 Pathology Results Personally reviewed and summarized above in Hematology & Oncology History RESULT Normal FISH Result inv(3) or t(3;3) RPN1::MECOM Fusion: not detected Deletion 5q: not detected Monosomy 7: not detected Deletion 7q: not detected t(8;21) RUNX1::[id number] Fusion: not detected 11p15 (NUP98) Rearrangement: not detected 11q23 (KMT2A) Rearrangement: not detected inv(16) or t(16;16) CBFB::MYH11 Fusion: not detected INTERPRETATION There was no evidence of RPN1::MECOM fusion due to 3q21/3q26.2 inversion or translocation, deletion 5q31, monosomy 7, deletion 7q31, RUNX1::[id number] fusion due to translocation (8;21)(q21.3;q22), 11p15 (NUP98) [...] flow cytometry () shows acute myeloid leukemia. 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 FISH normal -ECHO 59% EF -FISH AML panel WNL ,Normal karyotype -HIV and hep screen NR -D14 bone marrow demonstrated no morphologic evidence of residual acute myeloid leukemia in a markedly hypocellular bone marrow (5% cellular) -Myeloid malignancy mutation panel-NPM1 31.3%, TET2 69.9%, and RAST 5.2% Neutropenic fever, resolved T-max of 101.1?? F Tachycardia Unclear etiology CT chest PE-Suboptimal evaluation of the pulmonary arteries given phase of contrast. However, within the limitations of this examination, there is suggestion of a small nonocclusive pulmonary embolusin a segmental/subsegmental right lower lobe pulmonary artery. Duplex venous ultrasound negative for DVT PLAN -Started 7 + 3 09/06/23 , D20 today -On medroxyprogesterone 10 mg TID for menstrual bleeding as thrombocytopenia. Were consider down titrating depending on bleeding severity. Continue for duration of chemo . -Daily CBC w/diff, CMP -On posaconazole and valtrex for OI prophylaxis -Continue Cefepime. -Follow-up on blood cultures -Dr Carias will be primary -Daily weights - Transfusion goals plts > 20 K(in the setting of vaginal bleeding), Hb >7.0, Fibronogen >100. Please give both leukoreduced and irratiated blood if needed -PRN anti-emetics -Would not recommend anticoagulation given low suspicion for PE, diagnostic imaging nonconclusive Thank you for the opportunity to participate in the care of this patient. Hem/Onc consult service will continue to follow closely. Please don't hesitate to contact hem/onc consult fellow via the warping mill operator or AMION if any questions or clarifications. Anita Rios MD Hematology Oncology Fellow PGY4 [facility] ST REPRESENTATIVE Associated attestation - Alfredito Guajardo MD - 09/25/2023 7:03 PM ARTIST REPRESENTATIVE ATTENDING ATTESTATION Date of service: 09/25/2023 I personally interviewed and examined Selvin Mckeon on rounds with the resident on 09/25/2023. I agree with the findings and plan of care as documented by the resident. In addition, I note: D20 of induction chemotherapy with 7+3 (cytarabine plus idarubicin) for newly diagnosed AML. BM flow cytometryand core biopsy negative for residual leukemia. First neutropenic fever, cultured and started on cefepime per protocol. Persistently tachycardic. Consider checking orthostatics, as may be intravascularly dry. Continue supportive care and follow neutropenic protocol. Afebrile since the one time fever on Friday. I do not recommend treatment for PE. The scan report was not definitive and she is high risk for anticoagulation. Please order a post transfusion platelet count every time platelets are given. Alfredito Guajardo MD, PhD Hematology/Oncology * Queta Moreno RN - 09/24/2023 9:51 PM CST Problem: Pain/Discomfort Goal: Patient exhibits reduced pain/discomfort as evidenced by pain scores Outcome: Progressing Problem: Fall Risk Goal: Fall risk and fall related injury risk are minimized (interventions related to the fall risk can be found in the flowsheet documentation) Outcome: Progressing Problem: Hemodynamic Status/Cardiac Output Goal: Patient has stable vital signs and fluid balance Outcome: Progressing Problem: Infection Goal: Signs and symptoms of infections are decreased or avoided Outcome: Progressing ST REPRESENTATIVE * Ebenezer Elkins RN - 09/24/2023 4:38 PM CST Problem: Fall Risk Goal: Fall risk and fall related injury risk are minimized (interventions related to the fall risk can be found in the flowsheet documentation) Outcome: Progressing Problem: Nutrient: Increased nutrient needs (specify) Goal: Total intake will meet estimated nutrient needs Outcome: Progressing Problem: Pain/Discomfort Goal: Patient exhibits reduced pain/discomfort as evidenced by pain scores Outcome: Progressing ST REPRESENTATIVE Gaurav Collazo - 09/24/2023 10:40 AM CST Music Therapy Progress Note Start Time: 1015 End Time: 1040 Music Therapy Goals: Increase relaxation and Increase meaningful social interaction Intervention Provided: Provide familiar / significant music, Utilized iso- principle and Provide opportunities for social interaction Therapy Type: Individual Therapy Patient Response: Appropriate Affect: Mood, appropriate Treatment Modality: Music Therapy Music Therapist Gaurav Moyer visited patient in [facility] room. Patient was observed sitting up in chair, alert and oriented. Patient reported feeling tired this morning and requested live music relaxation. During interventions, Patient made eye contact, moved in time with the music, smiled, sang, and mouthed familiar lyrics. Patient engaged in processing after each intervention. At conclusion of session, no nonverbal indicators of distress observed. Gaurav Moyer, [facility], [place]-BC 09/24/2023 10:[address] REPRESENTATIVE Soraya Mendez MD - 09/24/2023 9:40 AM CST Internal Medicine Progress Note 09/24/2023 @ 9:40 AM Admit Date: 09/03/2023 - Length of Stay 21 Day(s) Subjective: Examined at bedside. No acute issues. VSS. She mentions some spotting so asked oncology if anythingbe added further. No new concerns Objective: Temp: [97.6 ??F (36.4 ??C)-98.9 ??F (37.2 ??C)] 98.2 ??F (36.8 ??C) Pulse: [118-132] 127 Resp: [20] 20 BP: (96-128)/(71-81) 116/77 Physical Exam General: NAD. Resting, appears comfortable HENT: NC/AT Eyes: Anicteric. Non-injected. Chest: No increased work of breathing. Barone at right chest. Cardiovascular: intact pulses, no JVD elevation, intact S1 and S2 Extremities: no rash wounds or cyanosis Neurological: Alert; conversational and follows commands. Moves all extremities spontaneously without issue. No focal deficits. Psych: Appropriate mood and affect Data reviewed including pertinent labs, imaging, diagnostics. 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 -FISH AML panel WNL ,Normal karyotype. HIV and hep screen NR. Oncology team updated about bone marrow biopsy results from [facility] - DCed allopurinol - Continue OI ppx: Posaconazole, Valacyclovir. - Levaquin held as pt started on cefepime for therapy. Will be resumed when febrile neutropenia resolved - medroxyprogesterone 10 in setting of thrombocytopenia and menstrual bleeding. - daily CBC??w/diff, and daily CMP, Uric Acid, -follow infectious work up - Transfuse for plts < 10 K, Hb < 7.0, Fibronogen > 100. Transfuse only leukocyte reduced AND irradiated blood products #tachycardia ? New PE -An episode on 09/19 when pt ambulated. -NSR on tele so far -continue tele monitoring, Mg and K replacement as needed. -negative venous doppler but CT PE showed small PE wo right heart strain. -treatment of PE deferred for now, will follow OP oncology. #Hypokalemia #Hypophosphatemia -replace as needed #Abdominal Pain -- improved #Diarrhea -- resolved - C. diff cancelled #Tonsillitis-resolved - Noted at OSH, s/p course of Augmentin #Disposition - Per H/O team. Requires multiple weeks inpatient and needs to stay for 28 days of AML induction. Nutrition: Regular diet DVT Prophylaxis: SCDs Code: Full Dispo: expected to stay for 28 days of induction. The best way to reach me is through Secure Chat. Soraya Malik MD 09/24/2023 ST REPRESENTATIVE * Rajesh Becerril DO - 09/24/2023 7:56 AM CST Images from the original note were not included. HEMATOLOGY/ONCOLOGY INPATIENT PROGRESS NOTE Name: Selvin Mckeon Age: [age] year old Date of : 1985 Date of Service: 09/24/2023 Reason for Consult: AML HEMATOLOGY & ONCOLOGY HISTORY Principal Diagnosis: AML Current Therapy: 7+ 3 Prior Hematology/Oncology History: None SUBJECTIVE History of Present Illness Chief Complaint: Fatigue, flu like symptoms History of Present Illness: Selvin Mckeon is a 38 year old female with no PMH who presented to [facility] presenting with fevers and flu like symptoms, initially thought to have tonsillitis seen on CT face?. Was treated with vanc cefepime and then CTX but had persistent pancytopenia so bone marrow biopsy was done whichshowed 78% blast on the bone marrow flow cytometry. Pt was transferred for concern for AML Formal bone marrow report still pending from OSH [facility] - Lives alone with daughter ( 11 y old) who is currently staying with her dad No PMH of cancers , is adopted so not sure about FH No drugs or smoking or alcohol use Interval hx NAEO VSS Patient has remained afebrile overnight. She continues to endorse poor sleep. On cefepime. Denies CP and SOB. Review of Systems: As noted in HPI. All other systems reviewed and negative. Past Medical & Surgical History Patient Active Problem List Diagnosis ??? Pancytopenia (CMS-HCC) ??? Tonsillitis ??? 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 NEGATIVE PAST MEDICAL HISTORY - SEE PROBLEM LIST Past Surgical History: Procedure Laterality Date ??? Section ??? Cholecystectomy ??? KIDNEY STONES, REMOVAL Social History Social History Tobacco Use ??? Smoking status: Former Packs/day: 1 Types: Cigarettes Start date: 2004 Quit date: 2010 Years since quittin.0 ??? Smokeless tobacco: Never Substance Use Topics ??? Alcohol use: Yes Comment: occasional Family History Family History Family history unknown: Yes Medications SCHEDULED MEDICATIONS: 0.9% NaCl injection 3 mL, Intracatheter, q8h cefepime (Maxipime) 2,000 mg in 0.9% NaCl IV 50 mL IVPB, Intravenous, q8h famotidine (Pepcid) tablet 20 mg, Oral, BID iopamidol (Isovue 370) 76 % contrast, Intravenous, Contrast - Once medroxyPROGESTERone (Provera) tablet 10 mg, Oral, QDAY perflutren lipid microsphere (Definity) injection 0.5 mL, Intravenous, intra- Procedure multiple posaconazole (Noxafil) tablet 300 mg, Oral, QDAY WITH DINNER potassium chloride 40 mEq in 270 mL bolus, Intravenous, Once potassium chloride ER (Klor-Con M) tablet 20 mEq, Oral, QDAY WITH BREAKFAST sodium - potassium phosphates (K Phos Neutral) tablet 1 tablet, Oral, BID valACYclovir (Valtrex) tablet 500 mg, Oral, BID CONTINUOUS MEDICATIONS: PRN MEDICATIONS: 0.9% NaCl infusion rate and volume, Intravenous, Once PRN 0.9% NaCl injection 1-10 mL, Intracatheter, PRN acetaminophen (Tylenol) tablet 650 mg, Oral, q4h PRN acetaminophen (Tylenol) tablet 650 mg, Oral, q6h PRN ALPRAZolam (Xanax) tablet 0.25 mg, Oral, BID PRN dicyclomine (Bentyl) tablet 20 mg, Oral, TID PRN docusate sodium (Colace) solution 50 mg, Oral, AT BEDTIME PRN heparin lock flush injection 500 Units, Intracatheter, PRN melatonin tablet 3 mg, Oral, AT BEDTIME PRN ondansetron (disintegrating) (Zofran ODT) tablet 8 mg, Oral, BID PRN ondansetron (Zofran) injection 8 mg, Intravenous, BID PRN oxyCODONE (immediate release) (Roxicodone) tablet 5 mg, Oral, q6h PRN prochlorperazine (Compazine) injection 5 mg, Intravenous, q6h PRN simethicone (Mylicon) chew tablet 80 mg, Oral, 4X/day PRN Allergies No Known Allergies OBJECTIVE Physical Exam Vitals: 09/23/23 1552 09/23/23 1950 09/23/23 2336 09/24/23 0314 BP: 96/81 128/81 119/71 127/73 Pulse: (!) 118 (!) 129 (!) 132 (!) 128 Resp: 20 20 20 20 Temp: 98.5 ??F (36.9 ??C) 98.9 ??F (37.2 ??C) 98.5 ??F (36.9 ??C) 98.3 ??F (36.8 ??C) SpO2: 100% 100% 98% 98% Weight: Height: Wt Readings from Last 3 Encounters: 09/23/23 114.7 kg (252 lb 12.8 oz) ECO General: Well-developed . No acute distress. Heart: Normal S1, S2. Regular rate and rhythm. Lungs: Symmetric breath sounds. Clear to auscultation. Nonlabored respirations. Abdomen: Soft, nontender, nondistended. Bowel sounds present. Extremities: No clubbing or edema. Skin: Warm, dry. No rash. Psychiatric: Cooperative. Appropriate mood and affect. Laboratory Results Recent Labs Component Name 09/24/23 0108 09/23/23 1406 09/23/23 0209 09/22/23 1742 09/19/23 2130 09/18/23 2225 09/18/23 1018 09/17/23202809/16/232019 WBC 0.3* 0.2* 0.2* 0.2* - 0.5* - 0.6* 0.6* RBC 2.38* 2.36* 2.43* 2.50* - 2.23* - 2.57* 2.65* HGB 7.4* 7.2* 7.6* 7.8* - 7.0* - 8.1* 8.3* HCT 19.8* 19.6* 20.3* 20.9* - 19.2* - 22.2* 23.1* MCV 83.2 83.1 83.5 83.6 - 86.1 - 86.4 87.2 MCHC 37.4* 36.7* 37.4* 37.3* - 36.5* - 36.5* 35.9 PLTCOUNT 18* 18* 8* 12* - 27* - 8* 13* NEUTABS 0.01* - 0.00* 0.01* - 0.01* 0.00* - 0.01* 0.00* 0.05* 0.01* LYMPHABS - - - - - 0.50* - 0.60* 0.59* - = values in this interval not displayed. Recent Labs Component Name 09/24/23 0108 09/22/23 2221 09/22/23 0115 POTASSIUM 3.1* 3.8 3.4* CO2 22 20* 22 BUN 5* 5* <5* CREATININE 0.69 0.66 0.59 EGFR >90 >90 >90 GLUCOSE 134* 142* 118* CALCIUM 8.5 8.6 8.6 MAGNESIUM 1.7 1.6 1.7 PHOS 1.6* 1.2* 2.4* ALT 18 27 36 AST 6 8 12 ALKPHOS 65 62 65 Pathology Results Personally reviewed and summarized above in Hematology & Oncology History RESULT Normal FISH Result inv(3) or t(3;3) RPN1::MECOM Fusion: not detected Deletion 5q: not detected Monosomy 7: not detected Deletion 7q: not detected t(8;21) RUNX1::[id number] Fusion: not detected 11p15 (NUP98) Rearrangement: not detected 11q23 (KMT2A) Rearrangement: not detected inv(16) or t(16;16) CBFB::MYH11 Fusion: not detected INTERPRETATION There was no evidence of RPN1::MECOM fusion due to 3q21/3q26.2 inversion or translocation, deletion 5q31, monosomy 7, deletion 7q31, RUNX1::IYAU2Y8 fusion due to translocation (8;21)(q21.3;q22), 11p15 (NUP98) [...] only. Flow Cytometry Summary Concurrent flow cytometry ([id number]) shows acute myeloid leukemia. 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 FISH normal -ECHO 59% EF -FISH AML panel WNL ,Normal karyotype -HIV and hep screen NR -D14 bone marrow demonstrated no morphologic evidence of residual acute myeloid leukemia in a markedly hypocellular bone marrow (5% cellular) Neutropenic fever T-max of 101.1?? F PLAN -Started 7 + 3 09/06/23 , D19 today -on medroxyprogesterone 10 mg QD for menstrual bleeding as thrombocytopenia, continue for duration of chemo -Daily CBC w/diff, CMP -On posaconazole and valtrex for OI prophylaxis -Continue Cefepime. -Discontinue vancomycin as less suspicious for skin or soft tissue infection. -Follow-up on blood cultures -Follow-up on myeloid malignancy mutation panel -Dr Stafford will be primary -Daily weights - Transfusion goals plts > 10 K, Hb >7.0, Fibronogen > 100. Please give both leukoreduced and irratiated blood if needed -PRN anti-emetics Thank you for the opportunity to participate in the care of this patient. Hem/Onc consult service will continue to follow closely. Please don't hesitate to contact hem/onc consult fellow via the warping mill operator or [employer] if any questions or clarifications. Rajesh Becerril, DO Internal Medicine, PGY-3 ST REPRESENTATIVE Associated attestation - Alfredito Guajardo MD - 09/24/2023 1:02 PM ARTIST REPRESENTATIVE ATTENDING ATTESTATION Date of service: 09/24/2023 I personally interviewed and examined Selvin Mckeon on rounds with the resident on 09/24/2023. I agree with the findings and plan of care as documented by the resident. In addition, I note: D19 of induction chemotherapy with 7+3 (cytarabine plus idarubicin) for newly diagnosed AML. BM flow cytometryand core biopsy negative for residual leukemia. First neutropenic fever, cultured and started on cefepime per protocol. Persistently tachycardic. Consider checking orthostatics, as may be intravascularly dry. Continue supportive care and follow neutropenic protocol. Afebrile since the one time fever on Friday. CBC with differential only needs to be once daily. It is being done BID. Alfredito Guajardo MD, PhD Hematology/Oncology * Soraya Malik, MD - 09/23/2023 6:30 PM CST Internal Medicine Progress Note 09/23/2023 @ 6:31 PM Admit Date: 09/03/2023 - Length of Stay 20 Day(s) Subjective: Examined at bedside. No acute issues. VSS. She mentions some spotting so asked oncology if anythingbe added further. Kee gibbs. Told her about small PE and that no current treatment needed unless platelets improve. Objective: Temp: [97.6 ??F (36.4 ??C)-99.8 ??F (37.7 ??C)] 98.5 ??F (36.9 ??C) Pulse: [118-141] 118 Resp: [18-22] 20 BP: (96-121)/(62-85) 96/81 Physical Exam General: NAD. Resting, appears comfortable HENT: NC/AT Eyes: Anicteric. Non-injected. Chest: No increased work of breathing. Barone at right chest. Cardiovascular: intact pulses, no JVD elevation, intact S1 and S2 Extremities: no rash wounds or cyanosis Neurological: Alert; conversational and follows commands. Moves all extremities spontaneously without issue. No focal deficits. Psych: Appropriate mood and affect Data reviewed including pertinent labs, imaging, diagnostics. Imaging: Reviewed Assessment/Plan: Principal Problem: 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 ([facility]-H[facility]) Active Problems: Pancytopenia (CMS-HCC) Tonsillitis #AML #Pancytopenia - BMB from OSH noting large proportion of blasts; final report noting AML - Repeat BMB 09/18 to ensure appropriate collection of all testing required prior to treatment - s/p Barone placement to begin chemo - TTE (09/05) unremarkable. -FISH AML panel WNL ,Normal karyotype. HIV and hep screen NR - DCed allopurinol - Continue OI ppx: Levofloxacin, Posaconazole, Valacyclovir - medroxyprogesterone 10 in setting of thrombocytopenia and menstrual bleeding - q12H CBC??w/diff, and daily CMP, Uric Acid, - Transfuse for plts < 10 K, Hb < 7.0, Fibronogen > 100. Transfuse only leukocyte reduced AND irradiated blood products #tachycardia ? New PE -An episode on 1/5 when pt ambulated. -NSR on tele so far -continue tele monitoring, Mg and K replacement as needed. -negative venous doppler but CT PE showed small PE wo right heart strain #Abdominal Pain -- improved #Diarrhea -- resolved - C. diff cancelled #Tonsillitis-resolved - Noted at OSH, s/p course of Augmentin #Disposition - Per H/O team. Requires multiple weeks inpatient. Nutrition: Regular diet DVT Prophylaxis: SCDs Code: Full Dispo: expected to stay for 28 days of induction. The best way to reach me is through Secure Chat. Soraya Malik MD 09/23/2023 ST REPRESENTATIVE * Ebenezer Elkins RN - 09/23/2023 3:40 PM CST Problem: Infection Goal: Signs and symptoms of infections are decreased or avoided Outcome: Progressing Problem: Pain/Discomfort Goal: Patient exhibits reduced pain/discomfort as evidenced by pain scores Outcome: Progressing Problem: Fall Risk Goal: Fall risk and fall related injury risk are minimized (interventions related to the fall risk can be found in the flowsheet documentation) Outcome: Progressing Problem: Hemodynamic Status/Cardiac Output Goal: Patient has stable vital signs and fluid balance Outcome: Progressing Problem: Nutrient: Increased nutrient needs (specify) Goal: Total intake will meet estimated nutrient needs Outcome: Progressing ST REPRESENTATIVE * Kenzie Miles RD/SARAH - 09/23/2023 12:35 PM CST Clinical Nutrition Assessment Brief Synopsis: Patient is at Nutrition Risk; Specific criteria can be found in assessment below Nutrition Plan: Regular diet Recommendations to Physician: None Comments: Pt scheduled for reassessment. PO intake appears to be fluctuating; 0- 100% of meals + supplements; per flowsheet documentation appetite good. Last BM 09/21; loose stool. Labs reviewed - [id number]. Per pt discussion appetite is up & down r/t loss of taste; pt consumed soup & banana for lunch; pt drinking supplements from home (has a case of premier protein in room). RD to follow. Assessment: Med/Surg History and Clinical Diagnoses: PMH who presented to [facility] presenting with fevers and flu like symptoms, initially thought to have tonsillitis seen on CT face Height: 157.5 cm (5' 2 ) Weight: 114.7 kg (252 lb 12.8 oz) BMI: Body mass index is 46.24 kg/m??. BMI Range: Severely Obese Class 2 IBW/lb (Calculated) Female: 110, Recent Weights/Methods 09/16/2023 0054 09/16/2023 2325 09/18/2023 0036 09/19/2023 0351 09/20/2023 0400 09/21/2023 0451 09/22/2023 0529 09/23/2023 0550 Weight: 116.5 kg (256 lb 12.8 oz) 115.9 kg (255 lb 9.6 oz) 115.6 kg (254 lb 12.8 oz) 115.6 kg (254 lb 12.8 oz) 115.1 kg (253 lb 12.8 oz) 115.1 kg (253 lb 12.8 oz) 115.6 kg (254 lb 12.8 oz) 114.7 kg (252 lb 12.8 oz) Weight Method : Bedscale Standing Standing -- Standing Standing Standing Standing Wt Comments: Reviewed & monitoring. Wt trending down Diet order accuracy Current diet order: Regular Nutrition recommendation: agree with current nutrition order P.O.Intake for the past 48 hrs: % Meal Taken Av.5 % Min: 0 % Max: 100 % Supplement(s) Consumed- Last 48 hours Date/Time Dietary Supplement Name Liquid Supplement Consumed (mL) Non-Liquid Supplement Consumed (%) 09/21/23 1347 Ensure High Protein 240 ML -- 09/22/23 1223 Ensure High Protein 240 ML -- Food Allergies: No known food allergies GI Concerns: Diarrhea Chewing/Swallowing: None Pain affecting intake: No Estimated Needs: KCAL: 6276-2293 (30-35kcal/kg of IBW) Protein (g): 66-77 (1.2-1.4gm/kg of IBW) Fluid (ml): 1 ml/kcal Needs based on: Kcal/kg- (Comment) (55kg of IBW) Recommended Access Route: PO Laboratory values: Recent Labs Component Name 09/22/232220 09/08/24 0115 09/21/23 0216 BUN 5* <5* 6* CREATININE 0.66 0.59 0.64 NA 132* 134* 133* POTASSIUM 3.8 3.4* 3.8 CL 105 103 102 CO2 20* 22 22 GLUCOSE 142* 118* 126* CALCIUM 8.6 8.6 9.1 PROT 6.3 6.3 6.8 ALB 2.6* 2.8* 3.1* TBILI 0.6 1.0 1.3* ALKPHOS 62 65 72 ALT 27 36 54 AST 8 12 24 ANIONGAP 7 9 9 BCR 8 <8 9 OSMOLALITY 274* <276 275 AGRATIO 0.7* 0.8* 0.8* EGFR >90 >90 >90 Medications: Current Facility-Administered Medications Medication ??? 0.9% NaCl infusion rate and volume ??? 0.9% NaCl infusion rate and volume ??? 0.9% NaCl injection 3 mL And ??? 0.9% NaCl injection 1-10 mL ??? acetaminophen (Tylenol) tablet 650 mg ??? acetaminophen (Tylenol) tablet 650 mg ??? ALPRAZolam (Xanax) tablet 0.25 mg ??? cefepime (Maxipime) 2,000 mg in 0.9% NaCl IV 50 mL IVPB ??? dicyclomine (Bentyl) tablet 20 mg ??? docusate sodium (Colace) solution 50 mg ??? famotidine (Pepcid) tablet 20 mg ??? heparin lock flush injection 500 Units ??? iopamidol (Isovue 370) 76 % contrast ??? medroxyPROGESTERone (Provera) tablet 10 mg ??? melatonin tablet 3 mg ??? ondansetron (disintegrating) (Zofran ODT) tablet 8 mg ??? ondansetron (Zofran) injection 8 mg ??? oxyCODONE (immediate release) (Roxicodone) tablet 5 mg ??? perflutren lipid microsphere (Definity) injection 0.5 mL ??? posaconazole (Noxafil) tablet 300 mg ??? potassium chloride ER (Klor-Con M) tablet 20 mEq ??? simethicone (Mylicon) chew tablet 80 mg ??? sodium - potassium phosphates (K Phos Neutral) tablet 1 tablet ??? valACYclovir (Valtrex) tablet 500 mg Skin/Wound: None Nutrition Care Process (1) Nutrition Diagnostic Statement: Increased nutrient needs related to:: cancer as evidenced by:: estimated protein needs ..;estimated energy needs .. Nutrition Diagnostic Statement Progress: Nutrition problem continues Nutrition Intervention: Meals and snacks: Monitoring: PO intake, labs, weight, BM Evaluation: Nutrition Goal: Total intake will meet estimated nutrient needs Nutrition Goal Timeframe: Throughout stay Nutrition Goal Progress: Continue with current goal ASCOM: 4537 ST REPRESENTATIVE * Gaurav Moyer - 09/23/2023 12:29 PM CST Music Therapy Progress Note Start Time: 1010 End Time: 1040 Music Therapy Goals: Increase relaxation, Increase appropriate sensory stimulation and Increase meaningful social interaction Intervention Provided: Provide familiar / significant music and Provide opportunities for social interaction Therapy Type: Individual Therapy Patient Response: Appropriate Affect: Mood, appropriate Treatment Modality: Music Therapy Music Therapist Gaurav Moyer visited patient in [facility] room. Patient was observed sitting up in chair, alert and oriented. During interventions, Patient smiled, sang, madeeye contact, and moved in time with the music. Patient reported feeling better this morning and engaged in emotional processing after each intervention. At conclusion of session, no nonverbal indicators of distress observed. ERLINDA Philip, MT-BC 09/23/2023 12:[address] REPRESENTATIVE * Anita Rios MD - 09/23/2023 8:01 AM CST Images from the original note were not included. HEMATOLOGY/ONCOLOGY INPATIENT PROGRESS NOTE Name: Selvin Mckeon Age: [age] year old Date of : 1985 Date of Service: 09/23/2023 Reason for Consult: AML HEMATOLOGY & ONCOLOGY HISTORY Principal Diagnosis: AML Current Therapy: 7+ 3 Prior Hematology/Oncology History: None SUBJECTIVE History of Present Illness Chief Complaint: Fatigue, flu like symptoms History of Present Illness: Selvin Mckeon is a 38 year old female with no PMH who presented to [facility] presenting with fevers and flu like symptoms, initially thought to have tonsillitis seen on CT face?. Was treated with vanc cefepime and then CTX but had persistent pancytopenia so bone marrow biopsy was done whichshowed 78% blast on the bone marrow flow cytometry. Pt was transferred for concern for AML Formal bone marrow report still pending from OSH [facility] - Lives alone with daughter ( 11 y old) who is currently staying with her dad No PMH of cancers , is adopted so not sure about FH No drugs or smoking or alcohol use Interval hx Patient reports feeling tired today as she did not get enough sleep overnight. On chart review appearance she had a CT angio chest PE scan and bilateral venous duplex for evaluation of tachycardia? Her patient denied any chest pain, shortness of breath, nasal congestion. Reports she has always had a high heart rate. CT chest PE demonstrated suboptimal evaluation of pulmonary artery, however within the limitations of this examination there is suggestion of small nonocclusive pulmonary embolism. Continues to her diarrhea with no recent worsening. Overnight had a T-max of 101.1?? F. currently oncefepime, vanco acyclovir, levofloxacin. Vancomycin was also started by primary team. Ms. Smith denies any dysuria, abdominal pain, nausea, vomiting, nasal congestion, cough. Review of Systems: As noted in HPI. All other systems reviewed and negative. Past Medical & Surgical History Patient Active Problem List Diagnosis ??? Pancytopenia (CMS-HCC) ??? Tonsillitis ??? 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 NEGATIVE PAST MEDICAL HISTORY - SEE PROBLEM LIST Past Surgical History: Procedure Laterality Date ??? Section ??? Cholecystectomy ??? KIDNEY STONES, REMOVAL Social History Social History Tobacco Use ??? Smoking status: Former Packs/day: 1 Types: Cigarettes Start date: 2004 Quit date: 2010 Years since quittin.0 ??? Smokeless tobacco: Never Substance Use Topics ??? Alcohol use: Yes Comment: occasional Family History Family History Family history unknown: Yes Medications SCHEDULED MEDICATIONS: 0.9% NaCl injection 3 mL, Intracatheter, q8h cefepime (Maxipime) 2,000 mg in 0.9% NaCl IV 50 mL IVPB, Intravenous, q8h famotidine (Pepcid) tablet 20 mg, Oral, BID iopamidol (Isovue 370) 76 % contrast, Intravenous, Contrast - Once medroxyPROGESTERone (Provera) tablet 10 mg, Oral, QDAY perflutren lipid microsphere (Definity) injection 0.5 mL, Intravenous, intra- Procedure multiple posaconazole (Noxafil) tablet 300 mg, Oral, QDAY WITH DINNER potassium chloride ER (Klor-Con M) tablet 20 mEq, Oral, QDAY WITH BREAKFAST sodium - potassium phosphates (K Phos Neutral) tablet 1 tablet, Oral, BID valACYclovir (Valtrex) tablet 500 mg, Oral, BID [COMPLETED] vancomycin (Vancocin) 2,500 mg in 550 mL IVPB, Intravenous, Once CONTINUOUS MEDICATIONS: PRN MEDICATIONS: 0.9% NaCl infusion rate and volume, Intravenous, Once PRN 0.9% NaCl infusion rate and volume, Intravenous, Once PRN 0.9% NaCl injection 1-10 mL, Intracatheter, PRN acetaminophen (Tylenol) tablet 650 mg, Oral, q4h PRN acetaminophen (Tylenol) tablet 650 mg, Oral, q6h PRN ALPRAZolam (Xanax) tablet 0.25 mg, Oral, BID PRN dicyclomine (Bentyl) tablet 20 mg, Oral, TID PRN docusate sodium (Colace) solution 50 mg, Oral, AT BEDTIME PRN heparin lock flush injection 500 Units, Intracatheter, PRN melatonin tablet 3 mg, Oral, AT BEDTIME PRN ondansetron (disintegrating) (Zofran ODT) tablet 8 mg, Oral, BID PRN ondansetron (Zofran) injection 8 mg, Intravenous, BID PRN oxyCODONE (immediate release) (Roxicodone) tablet 5 mg, Oral, q6h PRN simethicone (Mylicon) chew tablet 80 mg, Oral, 4X/day PRN Allergies No Known Allergies OBJECTIVE Physical Exam Vitals: 09/23/23 0701 09/23/23 0720 09/23/23 0816 09/23/23 1237 BP: 107/62 118/74 110/72 120/77 Pulse: (!) 126 (!) 121 (!) 120 (!) 125 Resp: 20 18 18 20 Temp: 98.7 ??F (37.1 ??C) 98.6 ??F (37 ??C) 97.8 ??F (36.6 ??C) 97.6 ??F (36.4 ??C) SpO2: 98% 97% 98% 100% Weight: Height: Wt Readings from Last 3 Encounters: 09/23/23 114.7 kg (252 lb 12.8 oz) ECO General: Well-developed . No acute distress. Heart: Normal S1, S2. Regular rate and rhythm. Lungs: Symmetric breath sounds. Clear to auscultation. Nonlabored respirations. Abdomen: Soft, nontender, nondistended. Bowel sounds present. Extremities: No clubbing or edema. Skin: Warm, dry. No rash. Psychiatric: Cooperative. Appropriate mood and affect. Laboratory Results Recent Labs Component Name 09/23/23 0209 09/22/23 1742 09/22/23 0115 09/19/23 21309/18/23 22209/18/23 1018 09/17/23202809/16/232019 WBC 0.2* 0.2* 0.3* - 0.5* - 0.6* 0.6* RBC 2.43* 2.50* 2.48* - 2.23* - 2.57* 2.65* HGB 7.6* 7.8* 7.7* - 7.0* - 8.1* 8.3* HCT 20.3* 20.9* 20.8* - 19.2* - 22.2* 23.1* MCV 83.5 83.6 83.9 - 86.1 - 86.4 87.2 MCHC 37.4* 37.3* 37.0* - 36.5* - 36.5* 35.9 PLTCOUNT 8* 12* 19* - 27* - 8* 13* NEUTABS 0.00* 0.01* 0.01* - 0.01* 0.00* - 0.01* 0.00* 0.05* 0.01* LYMPHABS - - - - 0.50* - 0.60* 0.59* - = values in this interval not displayed. Recent Labs Component Name 09/22/23 2221 09/22/23 0115 09/21/23 0216 POTASSIUM 3.8 3.4* 3.8 CO2 20* 22 22 BUN 5* <5* 6* CREATININE 0.66 0.59 0.64 EGFR >90 >90 >90 GLUCOSE 142* 118* 126* CALCIUM 8.6 8.6 9.1 MAGNESIUM 1.6 1.7 1.8 PHOS 1.2* 2.4* 2.7* ALT 27 36 54 AST 8 12 24 ALKPHOS 62 65 72 Pathology Results Personally reviewed and summarized above in Hematology & Oncology History RESULT Normal FISH Result inv(3) or t(3;3) RPN1::MECOM Fusion: not detected Deletion 5q: not detected Monosomy 7: not detected Deletion 7q: not detected t(8;21) RUNX1::BRBL2I0 Fusion: not detected 11p15 (NUP98) Rearrangement: not detected 11q23 (KMT2A) Rearrangement: not detected inv(16) or t(16;16) CBFB::MYH11 Fusion: not detected INTERPRETATION There was no evidence of RPN1::MECOM fusion due to 3q21/3q26.2 inversion or translocation, deletion 5q31, monosomy 7, deletion 7q31, RUNX1::SYGO6H0 fusion due to translocation (8;21)(q21.3;q22), 11p15 (NUP98) [...] flow cytometry () shows acute myeloid leukemia. 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 FISH normal -ECHO 59% EF -FISH AML panel WNL ,Normal karyotype -HIV and hep screen NR -D14 bone marrow demonstrated no morphologic evidence of residual acute myeloid leukemia in a markedly hypocellular bone marrow (5% cellular) Neutropenic fever T-max of 101.1?? F PLAN -Started 7 + 3 09/06/23 , D18 today -on medroxyprogesterone 10 mg QD for menstrual bleeding as thrombocytopenia, continue for duration of chemo -Daily CBC w/diff, CMP -Follow-up on myeloid malignancy mutation panel -On posaconazole and valtrex for OI prophylaxis -started on cefepime yesterday for neutropenic fevers. Would recommend discontinuing vancomycin as less suspicious for skin or soft tissue infection. -follow-up on blood culture reports -Dr Stafford will be primary -Daily weights - Transfusion goals plts > 10 K, Hb >7.0, Fibronogen > 100. Please give both leukoreduced and irratiated blood if needed -PRN anti-emetics Thank you for the opportunity to participate in the care of this patient. Hem/Onc consult service will continue to follow closely. Please don't hesitate to contact hem/onc consult fellow via the warping mill operator or AMION if any questions or clarifications. Anita Rios MD Hematology Oncology Fellow PGY4 [facility] ST REPRESENTATIVE Associated attestation - Alfredito Guajardo MD - 09/23/2023 6:17 PM ARTIST REPRESENTATIVE ATTENDING ATTESTATION Date of service: 09/23/2023 I personally interviewed and examined Selvin Mckeon on rounds with the resident on 09/23/2023. I agree with the findings and plan of care as documented by the resident. In addition, I note: D18 of induction chemotherapy with 7+3 (cytarabine plus idarubicin) for newly diagnosed AML. BM flow cytometry and core biopsy negative for residual leukemia. First neutropenic fever, cultured and started on cefepime per protocol. Vancomycin is not started with first fever unless suspect line infection or obvious skin or soft tissue source. Persistently tachycardic. Consider checking orthostatics, as may be i ntravascularly dry. Continue supportive care and follow neutropenic protocol. Afebrile since the one time fever yesterday. Alfredito Guajardo MD, PhD Hematology/Oncology * Nnamdi Collins, PharmD - 09/23/2023 3:45 AM CST ACTIVE CONSULTS TO PHARMACY/DISEASE STATE MONITORING Pharmacy Consult: Vancomycin ASSESSMENT/PLAN Indication: suspected Bacteremia with Goal Level: AUC 400-600 ID consulted/following: No Assessment: Day of treatment: 2 End of treatment date: to be determined Current dosing regimen: 1250 mg, Q8 hr Renal assessment: considered stable at this time as patient has Estimated Creatinine Clearance: 140.6 mL/min (by C-G formula based on SCr of 0.66 mg/dL). Micro evaluation: Recent Labs Component Name 09/22/23 1822 MRSADPCR Not detected MRSA: No Other pertinent micro: MRSA nasal swab (-) and one set of blood cultures pending Level evaluation: See chart below Recent Labs Component Name 09/23/23 0209 09/22/23 2221 VANCTROUGH 11.0 - VANCOPEAK - 28.4 Using 1st dose pharmacokinetic calculations (used in patients with less predictable kinetic profiles), the previously determined maintenance regimen would result in a calculated AUC = 318 mg-hr/L andis subtherapeutic to goal. Plan Dosing: Will adjust dose to 1500 mg Q8 hr. This regimen calculates to provide estimated AUC of 377 mg-h/L Although the above regimen has a subtherapeutic estimated AUC, will avoid increasing the dose further given possibility of accumulation. Monitoring Will order a vancomycin peak level after maintenance dose on 09/24 at 1400 and trough level prior to maintenance dose on 09/24 at 1800 and adjust regimen if indicated. Continue to monitor patient???s renal function and cultures as needed. Nnamdi Collins, PharmD 09/23/2023 3:[address] [facility] Vancomycin Guideline SUBJECTIVE/OBJECTIVE Selvin Mckeon is a 38 year old female. Height: 5' 2 (157.5 cm) Wt 115.6 kg (254 lb 12.8 oz) Body mass index is 46.6 kg/m??. Recent Labs Component Name 09/23/23 0209 09/22/23 2221 09/22/23 1742 09/22/23 0115 09/21/23 1612 09/21/23 0216 09/20/23 0353 09/19/23 2130 CREATININE - 0.66 - 0.59 - 0.64 - 0.63 BUN - 5* - <5* - 6* - 10 WBC 0.2* - 0.2* 0.3* 0.2* 0.4* - 0.4* - = values in this interval not displayed. @[id number]@ Dialysis Orders (72h ago, onward) None Radiocontrast within 72 hours The 3 most recent administrations since 09/20/2023 are shown below each listed medication. Other Order Route Dose Action Date iopamidol (Isovue 370) 76 % contrast Intravenous 75 mL $ Given - Contrast 09/22/2023 Vancomycin Administrations from MAR (last 72 hours) Date/Time Action Medication Dose Rate 09/23/23 0215 $ New Bag/Syringe vancomycin HCl (Vancocin) 1,250 mg in 0.9% NaCl IV 250 mL IVPB 1,250 mg 200 mL/hr 09/22/23 1834 $ New Bag/Syringe vancomycin (Vancocin) 2,500 mg in 550 mL IVPB 2,500 mg 220 mL/hr ST REPRESENTATIVE * Rashmi Srivastava RN - 09/22/2023 8:22 PM CST Peripheral blood cultures ordered byDr Malik on 09/22/23 at 1655. Per [facility] protocol, prior to completing the order as written, a pause was completed to determine whether the cultures were medically indicated. As a result of the pause process, 1 set blood cultures drawn. Had much difficulty obtaining1 set cultures. Antibiotics started and physician notified ST REPRESENTATIVE * Umair Murillo PharmD - 09/22/2023 6:48 PM CST ACTIVE CONSULTS TO PHARMACY/DISEASE STATE MONITORING Pharmacy [...] some patient populations. REF: https://www.idsociety.org/practice-guideline/vancomycin/ ASSESSMENT/PLAN Indication: suspected Bacteremia with Goal Level: AUC 400-600 Assessment ?? Renal assessment: considered stable at this time as patient has Estimated Creatinine Clearance: 157.3 mL/min (by C-G formula based on SCr of 0.59 mg/dL). ?? Historical dosing data that influences current dosing decisions: No ?? Micro evaluation: No results for input(s): MRSADPCR in the last 87210 hours. ?? History/current positive cultures for MRSA: No ?? Other pertinent micro: Yes, MRSA PCR: pending ?? Blood culture pending ?? Plan ? Regimen: o Loading dose: 2500 mg o Maintenance dose: 1250 mg, o Dosing interval: Q8 hr o This regimen calculates to provide estimated AUC of 536 mg-h/L ? Monitoring o Post initial loading dose, will order a vancomycin peak (1st) level on 09/22/23 at 2200 and trough (2nd) level prior to the start of the maintenance dose on 09/23/23 at 0200 and adjust regimen if indicated. o Continue to monitor patient???s renal function and cultures as needed. Umair Murillo, PharmD 09/22/2023 6:[address] [facility] Vancomycin Guideline SUBJECTIVE/OBJECTIVE Selvin Mckeon is a 38 year old female Height: 5' 2 (157.5 cm) Wt 115.6 kg (254 lb 12.8 oz) Body mass index is 46.6 kg/m??. Recent Labs Component Name 09/22/23 1742 09/22/23 0115 09/21/23 1612 09/21/23 0216 09/20/23 0353 09/19/23 2130 09/18/23 2225 CREATININE - 0.59 - 0.64 - 0.63 0.58 BUN - <5* - 6* - 10 6* WBC 0.2* 0.3* 0.2* 0.4* - 0.4* 0.5* - = values in this interval not displayed. Dialysis Orders (72h ago, onward) None Vancomycin Administrations from NOV (last 72 hours) Date/Time Action Medication Dose Rate 09/22/23 1834 $ New Bag/Syringe vancomycin (Vancocin) 2,500 mg in 550 mL IVPB 2,500 mg 220 mL/hr No results for input(s): VANCORNDM , VANCTROUGH , VANCOTROUGH , VANCOPEAK in the last [address] REPRESENTATIVE * Justin Moon, RN - 09/22/2023 4:07 PM CST Care Coordination Progress Note Anticipated level of care at discharge: Home: Anticipated level of care provider: None: Anticipated Discharge Date: 10/03/23: Discharge Plan: Return home when ready. ? Patient is Day??17??of 7+3 Induction chemotherapy ?In-patient care to continue through chemo, resolution of [employer], and count recovery with ANC goal >500. Orientation Level: Oriented X4: Family Support (Name and Phone): Extended Emergency Contact Information Primary Emergency Contact: Raheem Lai Mobile Relation: Significant other Secondary Emergency Contact: French Rosenthal Mobile Relation: Friend [employer] Field Processing Supervisor needed? No Transportation at Discharge: Friend: READMISSION RISK SCORE is 7 at 4:07 PM 09/22/2023.: Name: Justin Moon RN ST REPRESENTATIVE * Soraya Malik MD - 09/22/2023 11:46 AM CST Internal Medicine Progress Note 09/22/2023 @ 11:47 AM Admit Date: 09/03/2023 - Length of Stay 19 Day(s) Subjective: Examined at bedside. No acute issues. VSS. No new concerns. No fever chills NV. She mentions some spotting so asked her to take pics when she notices it next time. She feels fatigued likely due to sickness and anemia. Objective: Temp: [98.1 ??F (36.7 ??C)-99.4 ??F (37.4 ??C)] 98.5 ??F (36.9 ??C) Pulse: [111-130] 121 Resp: [16-20] 16 BP: (118-148)/(69-99) 118/69 Physical Exam General: NAD. Resting, appears comfortable HENT: NC/AT Eyes: Anicteric. Non-injected. Chest: No increased work of breathing. Barone at right chest. Cardiovascular: intact pulses, no JVD elevation, intact S1 and S2 Extremities: no rash wounds or cyanosis Neurological: Alert; conversational and follows commands. Moves all extremities spontaneously without issue. No focal deficits. Psych: Appropriate mood and affect Data reviewed including pertinent labs, imaging, diagnostics. 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 -FISH AML panel WNL ,Normal karyotype. HIV and hep screen NR - DCed allopurinol - Continue OI ppx: Levofloxacin, Posaconazole, Valacyclovir - medroxyprogesterone 10 in setting of thrombocytopenia and menstrual bleeding - q12H CBC??w/diff, and daily CMP, Uric Acid, - Transfuse for plts < 10 K, Hb < 7.0, Fibronogen > 100. Transfuse only leukocyte reduced AND irradiated blood products #tachycardia ? -An episode on 09/19 when pt ambulated. -NSR on tele so far -continue tele monitoring, Mg and K replacement as needed. -ordered venous doppler and CT PE eval to rule out PE/DVT #Abdominal Pain -- improved #Diarrhea -- resolved - C. diff cancelled #Tonsillitis-resolved - Noted at OSH, s/p course of Augmentin #Disposition - Per H/O team. Requires multiple weeks inpatient. Nutrition: Regular diet DVT Prophylaxis: SCDs Code: Full Dispo: expected to stay for 28 days of induction. The best way to reach me is through Secure Chat. Soraya Malik MD 09/22/[address]23 ST REPRESENTATIVE * BruFabien rocha Graduate Nurse - 09/22/2023 10:54 AM CST Problem: Pain/Discomfort Goal: Patient exhibits reduced pain/discomfort as evidenced by pain scores Outcome: Progressing Problem: Fall Risk Goal: Fall risk and fall related injury risk are minimized (interventions related to the fall risk can be found in the flowsheet documentation) Outcome: Progressing Problem: Hemodynamic Status/Cardiac Output Goal: Patient has stable vital signs and fluid balance Outcome: Progressing ST REPRESENTATIVE * Anita Rios MD - 09/22/2023 8:04 AM CST Images from the original note were not included. HEMATOLOGY/ONCOLOGY INPATIENT PROGRESS NOTE Name: Selvin Mckeon Age: [id number] year old Date of : 1985 Date of Service: 09/22/2023 Reason for Consult: AML HEMATOLOGY & ONCOLOGY HISTORY Principal Diagnosis: AML Current Therapy: 7+ 3 Prior Hematology/Oncology History: None SUBJECTIVE History of Present Illness Chief Complaint: Fatigue, flu like symptoms History of Present Illness: Selvin Mckeon is a 38 year old female with no PMH who presented to [facility] presenting with fevers and flu like symptoms, initially thought to have tonsillitis seen on CT face?. Was treated with vanc cefepime and then CTX but had persistent pancytopenia so bone marrow biopsy was done whichshowed 78% blast on the bone marrow flow cytometry. Pt was transferred for concern for AML Formal bone marrow report still pending from OSH [facility] - Lives alone with daughter ( 11 y old) who is currently staying with her dad No PMH of cancers , is adopted so not sure about FH No drugs or smoking or alcohol use Interval hx Patient required 1 unit of blood transfusion overnight for hemoglobin level of 6.9 grams/deciliter.Reports not sleeping very well overnight(as she was getting blood transfusion) and hence sleepy andtired this morning. Review of Systems: As noted in HPI. All other systems reviewed and negative. Past Medical & Surgical History Patient Active Problem List Diagnosis ??? Pancytopenia (CMS-HCC) ??? Tonsillitis ??? 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 NEGATIVE PAST MEDICAL HISTORY - SEE PROBLEM LIST Past Surgical History: Procedure Laterality Date ??? Section ??? Cholecystectomy ??? KIDNEY STONES, REMOVAL Social History Social History Tobacco Use ??? Smoking status: Former Packs/day: 1 Types: Cigarettes Start date: 2004 Quit date: 2010 Years since quittin.0 ??? Smokeless tobacco: Never Substance Use Topics ??? Alcohol use: Yes Comment: occasional Family History Family History Family history unknown: Yes Medications SCHEDULED MEDICATIONS: 0.9% NaCl injection 3 mL, Intracatheter, q8h cefepime (Maxipime) 2,000 mg in 0.9% NaCl IV 50 mL IVPB, Intravenous, q8h famotidine (Pepcid) tablet 20 mg, Oral, BID medroxyPROGESTERone (Provera) tablet 10 mg, Oral, QDAY perflutren lipid microsphere (Definity) injection 0.5 mL, Intravenous, intra- Procedure multiple posaconazole (Noxafil) tablet 300 mg, Oral, QDAY WITH DINNER potassium chloride ER (Klor-Con M) tablet 20 mEq, Oral, QDAY WITH BREAKFAST valACYclovir (Valtrex) tablet 500 mg, Oral, BID vancomycin (Vancocin) 2,500 mg in 550 mL IVPB, Intravenous, Once vancomycin (Vancocin) IV dose per pharmacy, Does not apply, DIRECTED [COMPLETED] potassium chloride (Klor-Con) packet 40 mEq, Oral, Once CONTINUOUS MEDICATIONS: PRN MEDICATIONS: 0.9% NaCl injection 1-10 mL, Intracatheter, PRN acetaminophen (Tylenol) tablet 650 mg, Oral, q4h PRN acetaminophen (Tylenol) tablet 650 mg, Oral, q6h PRN ALPRAZolam (Xanax) tablet 0.25 mg, Oral, BID PRN dicyclomine (Bentyl) tablet 20 mg, Oral, TID PRN docusate sodium (Colace) solution 50 mg, Oral, AT BEDTIME PRN heparin lock flush injection 500 Units, Intracatheter, PRN melatonin tablet 3 mg, Oral, AT BEDTIME PRN ondansetron (disintegrating) (Zofran ODT) tablet 8 mg, Oral, BID PRN ondansetron (Zofran) injection 8 mg, Intravenous, BID PRN oxyCODONE (immediate release) (Roxicodone) tablet 5 mg, Oral, q6h PRN simethicone (Mylicon) chew tablet 80 mg, Oral, 4X/day PRN Allergies No Known Allergies OBJECTIVE Physical Exam Vitals: 09/22/23 0529 09/22/23 0927 09/22/23 1219 09/22/23 1638 BP: 122/70 118/69 128/82 119/74 Pulse: (!) 125 (!) 121 (!) 119 (!) 120 Resp: 20 16 20 20 Temp: 99.4 ??F (37.4 ??C) 98.5 ??F (36.9 ??C) 98.3 ??F (36.8 ??C) (!) 101.1 ??F (38.4 ??C) SpO2: 95% 98% 99% 100% Weight: 115.6 kg (254 lb 12.8 oz) Height: 1.575 m (5' 2 ) Wt Readings from Last 3 Encounters: 09/22/23 115.6 kg (254 lb 12.8 oz) ECO General: Well-developed . No acute distress. Heart: Normal S1, S2. Regular rate and rhythm. Lungs: Symmetric breath sounds. Clear to auscultation. Nonlabored respirations. Abdomen: Soft, nontender, nondistended. Bowel sounds present. Extremities: No clubbing or edema. Skin: Warm, dry. No rash. Psychiatric: Cooperative. Appropriate mood and affect. Laboratory Results Recent Labs Component Name 09/22/23 0115 09/21/23 1612 09/21/23 0617 09/21/23 0216 09/19/23 2130 09/18/23 2225 09/18/23 1018 09/17/23202809/16/232019 WBC 0.3* 0.2* - 0.4* - 0.5* - 0.6* 0.6* RBC 2.48* 2.23* - 2.61* - 2.23* - 2.57* 2.65* HGB 7.7* 6.9* - 8.3* - 7.0* - 8.1* 8.3* HCT 20.8* 18.8* - 22.2* - 19.2* - 22.2* 23.1* MCV 83.9 84.3 - 85.1 - 86.1 - 86.4 87.2 MCHC 37.0* 36.7* - 37.4* - 36.5* - 36.5* 35.9 PLTCOUNT 19* 26* 35* 9* - 27* - 8* 13* NEUTABS 0.01* 0.01* - 0.00* - 0.01* 0.00* - 0.01* 0.00* 0.05* 0.01* LYMPHABS - - - - - 0.50* - 0.60* 0.59* - = values in this interval not displayed. Recent Labs Component Name 09/22/23 0115 09/21/23 0216 09/19/23 2130 POTASSIUM 3.4* 3.8 3.6 CO2 22 22 22 BUN <5* 6* 10 CREATININE 0.59 0.64 0.63 EGFR >90 >90 >90 GLUCOSE 118* 126* 111 CALCIUM 8.6 9.1 8.8 MAGNESIUM 1.7 1.8 1.8 PHOS 2.4* 2.7* 3.1 ALT 36 54 50 AST 12 24 24 ALKPHOS 65 72 68 Pathology Results Personally reviewed and summarized above in Hematology & Oncology History RESULT Normal FISH Result inv(3) or t(3;3) RPN1::MECOM Fusion: not detected Deletion 5q: not detected Monosomy 7: not detected Deletion 7q: not detected t(8;21) RUNX1::GMTF4J5 Fusion: not detected 11p15 (NUP98) Rearrangement: not detected 11q23 (KMT2A) Rearrangement: not detected inv(16) or t(16;16) CBFB::MYH11 Fusion: not detected INTERPRETATION There was no evidence of RPN1::MECOM fusion due to 3q21/3q26.2 inversion or translocation, deletion 5q31, monosomy 7, deletion 7q31, RUNX1::ESZQ5N2 fusion due to translocation (8;21)(q21.3;q22), 11p15 (NUP98) [...] flow cytometry () shows acute myeloid leukemia. 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 FISH normal -ECHO 59% EF -FISH AML panel WNL ,Normal karyotype -HIV and hep screen NR PLAN -Started 7 + 3 09/06/23 , D17 today -F/u on D14 marrow results -follow-up on HLA, myeloid mutation panel, FISH PML -on medroxyprogesterone 10 mg QD for menstrual bleeding as thrombocytopenia, continue for duration of chemo -Daily CBC w/diff, CMP -On levaquin, posaconazole and valtrex for OI prophylaxis -Dr Stafford will be primary -Daily weights - Transfusion goals plts > 10 K, Hb >7.0, Fibronogen > 100. Please give both leukoreduced and irratiated blood if needed -PRN anti-emetics Thank you for the opportunity to participate in the care of this patient. Hem/Onc consult service will continue to follow closely. Please don't hesitate to contact hem/onc consult fellow via the warping mill operator or AMION if any questions or clarifications. Anita Rios MD Hematology Oncology Fellow PGY4 [facility] ST REPRESENTATIVE Associated attestation - Alfredito Guajardo MD - 09/22/2023 10:43 PM ARTIST REPRESENTATIVE ATTENDING ATTESTATION Date of service: 09/22/2023 I personally interviewed and examined Selvin Mckeon on rounds with the resident on 09/22/2023. I agree with the findings and plan of care as documented by the resident. In addition, I note: D17 of induction chemotherapy with 7+3 (cytarabine plus idarubicin) for newly diagnosed AML. Flow cytometry negative from bone marrow aspirate. Core biopsy pending. Persistently tachycardic. Consider checking orthostatics, as may be intravascularly dry. Continue supportive care and follow neutropenic protocol. Alfredito Guajardo MD, PhD Hematology/Oncology * Soraya Malik MD - 09/21/2023 10:56 AM CST Internal Medicine Progress Note 09/21/2023 @ 10:56 AM Admit Date: 09/03/2023 - Length of Stay 18 Day(s) Subjective: Examined at bedside. No acute issues. VSS. No new concerns. Last BM yesterday Objective: Temp: [98.4 ??F (36.9 ??C)-99.9 ??F (37.7 ??C)] 99.1 ??F (37.3 ??C) Pulse: [110-129] 110 Resp: [18-20] 20 BP: (116-141)/(69-94) 118/69 Physical Exam General: NAD. Resting, appears comfortable HENT: NC/AT Eyes: Anicteric. Non-injected. Chest: No increased work of breathing. Barone at right chest. Cardiovascular: intact pulses, no JVD elevation, intact S1 and S2 Extremities: no rash wounds or cyanosis Neurological: Alert; conversational and follows commands. Moves all extremities spontaneously without issue. No focal deficits. Psych: Appropriate mood and affect Data reviewed including pertinent labs, imaging, diagnostics. 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 -FISH AML panel WNL ,Normal karyotype. HIV and hep screen NR PLAN: - DCed allopurinol - Continue OI ppx: Levofloxacin, Posaconazole, Valacyclovir - medroxyprogesterone 10 in setting of thrombocytopenia and menstrual bleeding - q12H CBC??w/diff, and daily CMP, Uric Acid, - Transfuse for plts < 10 K, Hb < 7.0, Fibronogen > 100 #tachycardia ? -An episode on 09/19 when pt ambulated. -continue tele monitoring, Mg and K replacement as needed. #Abdominal Pain -- improved #Diarrhea -- resolved - C. diff cancelled #Tonsillitis-resolved - Noted at OSH, s/p course of Augmentin #Disposition - Per H/O team. Requires multiple weeks inpatient. Nutrition: Regular diet DVT Prophylaxis: SCDs Code: Full Dispo: Above The best way to reach me is through Secure Chat. Soraya Malik MD 09/21/[address]23 ST REPRESENTATIVE * Fabien Anna Graduate Nurse - 09/21/2023 10:34 AM CST Problem: Pain/Discomfort Goal: Patient exhibits reduced pain/discomfort as evidenced by pain scores Outcome: Progressing Problem: Fall Risk Goal: Fall risk and fall related injury risk are minimized (interventions related to the fall risk can be found in the flowsheet documentation) Outcome: Progressing Problem: Hemodynamic Status/Cardiac Output Goal: Patient has stable vital signs and fluid balance Outcome: Progressing ST REPRESENTATIVE * Velma Toney MD - 09/21/2023 8:21 AM CST Images from the original note were not included. HEMATOLOGY/ONCOLOGY INPATIENT PROGRESS NOTE Name: Selvin Mckeon Age: [age] year old Date of : 1985 Date of Service: 09/21/2023 Reason for Consult: AML HEMATOLOGY & ONCOLOGY HISTORY Principal Diagnosis: AML Current Therapy: 7+ 3 Prior Hematology/Oncology History: None SUBJECTIVE History of Present Illness Chief Complaint: Fatigue, flu like symptoms History of Present Illness: Selvin Mckeon is a 38 year old female with no PMH who presented to [facility] presenting with fevers and flu like symptoms, initially thought to have tonsillitis seen on CT face?. Was treated with vanc cefepime and then CTX but had persistent pancytopenia so bone marrow biopsy was done whichshowed 78% blast on the bone marrow flow cytometry. Pt was transferred for concern for AML Formal bone marrow report still pending from [facility] - Lives alone with daughter ( 11 y old) who is currently staying with her dad No PMH of cancers , is adopted so not sure about FH No drugs or smoking or alcohol use Interval hx D16 7+3 NAEO VSS Complaining of nausea and vomiting overnight , acid reflux 1 unit plt to be transfused Review of Systems: As noted in HPI. All other systems reviewed and negative. Past Medical & Surgical History Patient Active Problem List Diagnosis ??? Pancytopenia (CMS-HCC) ??? Tonsillitis ??? 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 NEGATIVE PAST MEDICAL HISTORY - SEE PROBLEM LIST Past Surgical History: Procedure Laterality Date ??? Section ??? Cholecystectomy ??? KIDNEY STONES, REMOVAL Social History Social History Tobacco Use ??? Smoking status: Former Packs/day: 1 Types: Cigarettes Start date: 2004 Quit date: 2010 Years since quittin.0 ??? Smokeless tobacco: Never Substance Use Topics ??? Alcohol use: Yes Comment: occasional Family History Family History Family history unknown: Yes Medications SCHEDULED MEDICATIONS: 0.9% NaCl injection 3 mL, Intracatheter, q8h famotidine (Pepcid) tablet 20 mg, Oral, BID levoFLOXacin (Levaquin) tablet 500 mg, Oral, QDAY medroxyPROGESTERone (Provera) tablet 10 mg, Oral, QDAY perflutren lipid microsphere (Definity) injection 0.5 mL, Intravenous, intra- Procedure multiple posaconazole (Noxafil) tablet 300 mg, Oral, QDAY WITH DINNER potassium chloride ER (Klor-Con M) tablet 20 mEq, Oral, QDAY WITH BREAKFAST valACYclovir (Valtrex) tablet 500 mg, Oral, BID [COMPLETED] prochlorperazine (Compazine) injection 5 mg, Intravenous, Once CONTINUOUS MEDICATIONS: PRN MEDICATIONS: 0.9% NaCl infusion rate and volume, Intravenous, Once PRN 0.9% NaCl injection 1-10 mL, Intracatheter, PRN acetaminophen (Tylenol) tablet 650 mg, Oral, q6h PRN ALPRAZolam (Xanax) tablet 0.25 mg, Oral, BID PRN dicyclomine (Bentyl) tablet 20 mg, Oral, TID PRN heparin lock flush injection 500 Units, Intracatheter, PRN melatonin tablet 3 mg, Oral, AT BEDTIME PRN ondansetron (disintegrating) (Zofran ODT) tablet 8 mg, Oral, BID PRN ondansetron (Zofran) injection 8 mg, Intravenous, BID PRN oxyCODONE (immediate release) (Roxicodone) tablet 5 mg, Oral, q6h PRN simethicone (Mylicon) chew tablet 80 mg, Oral, 4X/day PRN Allergies No Known Allergies OBJECTIVE Physical Exam Vitals: 09/21/23 0451 09/21/23 0504 09/21/23 0536 09/21/23 0611 BP: 124/94 141/86 125/79 118/69 Pulse: (!) 129 (!) 119 (!) 115 (!) 110 Resp: 19 18 18 Temp: 99.9 ??F (37.7 ??C) 98.4 ??F (36.9 ??C) 98.5 ??F (36.9 ??C) 99.1 ??F (37.3 ??C) SpO2: 97% 98% 99% 100% Weight: 115.1 kg (253 lb 12.8 oz) Height: 1.575 m (5' 2 ) Wt Readings from Last 3 Encounters: 09/21/23 115.1 kg (253 lb 12.8 oz) ECO General: Well-developed . No acute distress. Heart: Normal S1, S2. Regular rate and rhythm. Lungs: Symmetric breath sounds. Clear to auscultation. Nonlabored respirations. Abdomen: Soft, nontender, nondistended. Bowel sounds present. Extremities: No clubbing or edema. Skin: Warm, dry. No rash. Psychiatric: Cooperative. Appropriate mood and affect. Laboratory Results Recent Labs Component Name 09/21/23 0216 09/20/23 1611 09/20/23 0353 09/19/23 2130 09/18/23 2225 09/18/23 1018 09/17/23202809/16/232019 WBC 0.4* 0.3* 0.4* - 0.5* - 0.6* 0.6* RBC 2.61* 2.52* 2.48* - 2.23* - 2.57* 2.65* HGB 8.3* 7.9* 7.7* - 7.0* - 8.1* 8.3* HCT 22.2* 21.3* 21.4* - 19.2* - 22.2* 23.1* MCV 85.1 84.5 86.3 - 86.1 - 86.4 87.2 MCHC 37.4* 37.1* 36.0 - 36.5* - 36.5* 35.9 PLTCOUNT 9* 11* 14* - 27* - 8* 13* NEUTABS 0.00* 0.00* 0.02* - 0.01* 0.00* - 0.01* 0.00* 0.05* 0.01* LYMPHABS - - - - 0.50* - 0.60* 0.59* - = values in this interval not displayed. Recent Labs Component Name 09/21/23 0216 09/19/23 2130 09/18/23 2225 POTASSIUM 3.8 3.6 4.1 CO2 22 22 23 BUN 6* 10 6* CREATININE 0.64 0.63 0.58 EGFR >90 >90 >90 GLUCOSE 126* 111 117* CALCIUM 9.1 8.8 8.7 MAGNESIUM 1.8 1.8 2.0 PHOS 2.7* 3.1 2.7* ALT 54 50 44 AST 24 24 20 ALKPHOS 72 68 66 Pathology Results Personally reviewed and summarized above in Hematology & Oncology History RESULT Normal FISH Result inv(3) or t(3;3) RPN1::MECOM Fusion: not detected Deletion 5q: not detected Monosomy 7: not detected Deletion 7q: not detected t(8;21) RUNX1::NFLS8V4 Fusion: not detected 11p15 (NUP98) Rearrangement: not detected 11q23 (KMT2A) Rearrangement: not detected inv(16) or t(16;16) CBFB::MYH11 Fusion: not detected INTERPRETATION There was no evidence of RPN1::MECOM fusion due to 3q21/3q26.2 inversion or translocation, deletion 5q31, monosomy 7, deletion 7q31, RUNX1::XYOQ5G6 fusion due to translocation (8;21)(q21.3;q22), 11p15 (NUP98) [...] flow cytometry () shows acute myeloid leukemia. 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 FISH normal -ECHO 59% EF -FISH AML panel WNL ,Normal karyotype -HIV and hep screen NR PLAN -Started 7 + 3 09/06/23 , D16 today -F/u on D14 marrow results -follow-up on HLA, myeloid mutation panel, FISH PML -on medroxyprogesterone 10 mg QD for menstrual bleeding as thrombocytopenia, continue for duration of chemo -Daily CBC w/diff, CMP -On levaquin, posaconazole and valtrex for OI prophylaxis -Dr Stafford will be primary -Daily weights - Transfusion goals plts > 10 K, Hb >7.0, Fibronogen > 100. Please give both leukoreduced and irratiated blood if needed -PRN anti-emetics Thank you for the opportunity to participate in the care of this patient. Hem/Onc consult service will continue to follow closely. Please don't hesitate to contact hem/onc consult fellow via the warping mill operator or AMION if any questions or clarifications. Velma Toney MD, PGY-4 Hematology-Oncology Fellow [facility] ST REPRESENTATIVE Associated attestation - Abrahan Rivera MD - 09/21/2023 2:40 PM ARTIST REPRESENTATIVE I have seen and examined the patient with the fellow. I agree with the findings and plan of care asdocumented by the fellow. Date of fellow's note: 09/21/2023 Date of service: 09/21/2023 Abrahan Rivera MD * Yin Saunders RN - 09/21/2023 3:55 AM CST Problem: Infection Goal: Signs and symptoms of infections are decreased or avoided Outcome: Progressing Problem: Pain/Discomfort Goal: Patient exhibits reduced pain/discomfort as evidenced by pain scores Outcome: Progressing Problem: Fall Risk Goal: Fall risk and fall related injury risk are minimized (interventions related to the fall risk can be found in the flowsheet documentation) Outcome: Progressing ST REPRESENTATIVE * Fabien Anna, Graduate Nurse - 09/20/2023 12:40 PM CST Problem: Pain/Discomfort Goal: Patient exhibits reduced pain/discomfort as evidenced by pain scores Outcome: Progressing Problem: Fall Risk Goal: Fall risk and fall related injury risk are minimized (interventions related to the fall risk can be found in the flowsheet documentation) Outcome: Progressing Problem: Hemodynamic Status/Cardiac Output Goal: Patient has stable vital signs and fluid balance Outcome: Progressing ST REPRESENTATIVE * Soraya Malik MD - 09/20/2023 12:36 PM CST Internal Medicine Progress Note 09/20/2023 @ 12:37 PM Admit Date: 09/03/2023 - Length of Stay 17 Day(s) Subjective: Examined at bedside. No acute issues. VSS. No bleeding and no fever. No chest pain, SOB or abd pain. Eating diet and having regular BMs. Some pain at bone marrow biopsy site but controlled with meds. Objective: Temp: [98.2 ??F (36.8 ??C)-99 ??F (37.2 ??C)] 98.2 ??F (36.8 ??C) Pulse: [102-125] 115 Resp: [16-18] 17 BP: (110-125)/(70-78) 122/70 Physical Exam General: NAD. Resting, appears comfortable HENT: NC/AT Eyes: Anicteric. Non-injected. Chest: No increased work of breathing. Barone at right chest. Cardiovascular: intact pulses, no JVD elevation, intact S1 and S2 Extremities: no rash wounds or cyanosis Neurological: Alert; conversational and follows commands. Moves all extremities spontaneously without issue. No focal deficits. Psych: Appropriate mood and affect Data reviewed including pertinent labs, imaging, diagnostics. 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 -FISH AML panel WNL ,Normal karyotype. HIV and hep screen NR PLAN: - DCed allopurinol - Continue OI ppx: Levofloxacin, Posaconazole, Valacyclovir - medroxyprogesterone 10 in setting of thrombocytopenia and menstrual bleeding - Daily labs: CBC??w/diff, CMP, Uric Acid, - Transfuse for plts < 10 K, Hb < 7.0, Fibronogen > 100 #tachycardia ? -An episode on 09/19 when pt ambulated. -continue tele monitoring, Mg and K replacement as needed. #Abdominal Pain -- improved #Diarrhea -- resolved - C. diff cancelled #Tonsillitis-resolved - Noted at OSH, s/p course of Augmentin #Disposition - Per H/O team. Requires multiple weeks inpatient. Nutrition: Regular diet DVT Prophylaxis: SCDs Code: Full Dispo: Above The best way to reach me is through Secure Chat. Soraya Malik MD 09/20/2023 ST REPRESENTATIVE * Velma Toney MD - 09/20/2023 8:25 AM CST Images from the original note were not included. HEMATOLOGY/ONCOLOGY INPATIENT PROGRESS NOTE Name: Selvin Mckeon Age: [id number] year old Date of : 1985 Date of Service: 09/20/2023 Reason for Consult: AML HEMATOLOGY & ONCOLOGY HISTORY Principal Diagnosis: AML Current Therapy: 7+ 3 Prior Hematology/Oncology History: None SUBJECTIVE History of Present Illness Chief Complaint: Fatigue, flu like symptoms History of Present Illness: Selvin Mckeon is a 38 year old female with no PMH who presented to [facility] presenting with fevers and flu like symptoms, initially thought to have tonsillitis seen on CT face?. Was treated with vanc cefepime and then CTX but had persistent pancytopenia so bone marrow biopsy was done whichshowed 78% blast on the bone marrow flow cytometry. Pt was transferred for concern for AML Formal bone marrow report still pending from [facility] - Lives alone with daughter ( 11 y old) who is currently staying with her dad No PMH of cancers , is adopted so not sure about FH No drugs or smoking or alcohol use Interval hx D15 7+3 NAEO VSS Complaining of fatigue Received 1 unit PRBC overnight Review of Systems: As noted in HPI. All other systems reviewed and negative. Past Medical & Surgical History Patient Active Problem List Diagnosis ??? Pancytopenia (CMS-HCC) ??? Tonsillitis ??? 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 NEGATIVE PAST MEDICAL HISTORY - SEE PROBLEM LIST Past Surgical History: Procedure Laterality Date ??? Section ??? Cholecystectomy ??? KIDNEY STONES, REMOVAL Social History Social History Tobacco Use ??? Smoking status: Former Packs/day: 1 Types: Cigarettes Start date: 2004 Quit date: 2010 Years since quittin.0 ??? Smokeless tobacco: Never Substance Use Topics ??? Alcohol use: Yes Comment: occasional Family History Family History Family history unknown: Yes Medications SCHEDULED MEDICATIONS: 0.9% NaCl injection 3 mL, Intracatheter, q8h famotidine (Pepcid) tablet 20 mg, Oral, BID levoFLOXacin (Levaquin) tablet 500 mg, Oral, QDAY medroxyPROGESTERone (Provera) tablet 10 mg, Oral, QDAY perflutren lipid microsphere (Definity) injection 0.5 mL, Intravenous, intra- Procedure multiple posaconazole (Noxafil) tablet 300 mg, Oral, QDAY WITH DINNER potassium chloride ER (Klor-Con M) tablet 20 mEq, Oral, QDAY WITH BREAKFAST valACYclovir (Valtrex) tablet 500 mg, Oral, BID [COMPLETED] oxyCODONE (immediate release) (Roxicodone) tablet 5 mg, Oral, Once CONTINUOUS MEDICATIONS: PRN MEDICATIONS: 0.9% NaCl infusion rate and volume, Intravenous, Once PRN 0.9% NaCl injection 1-10 mL, Intracatheter, PRN acetaminophen (Tylenol) tablet 650 mg, Oral, q6h PRN dicyclomine (Bentyl) tablet 20 mg, Oral, TID PRN heparin lock flush injection 500 Units, Intracatheter, PRN LORazepam (Ativan) injection 1 mg, Intravenous, q8h PRN LORazepam (Ativan) tablet 1 mg, Oral, q8h PRN melatonin tablet 3 mg, Oral, AT BEDTIME PRN ondansetron (disintegrating) (Zofran ODT) tablet 8 mg, Oral, BID PRN ondansetron (Zofran) injection 8 mg, Intravenous, BID PRN oxyCODONE (immediate release) (Roxicodone) tablet 5 mg, Oral, q6h PRN prochlorperazine (Compazine) injection 5 mg, Intravenous, q4h PRN prochlorperazine (Compazine) tablet 10 mg, Oral, q4h PRN simethicone (Mylicon) chew tablet 80 mg, Oral, 4X/day PRN Allergies No Known Allergies OBJECTIVE Physical Exam Vitals: 09/20/23 0111 09/20/23 0133 09/20/23 0328 09/20/23 0400 BP: 119/70 118/73 125/78 Pulse: 107 102 105 Resp: 18 18 17 Temp: 98.8 ??F (37.1 ??C) 98.6 ??F (37 ??C) 99 ??F (37.2 ??C) SpO2: 99% 100% 100% Weight: 115.1 kg (253 lb 12.8 oz) Height: Wt Readings from Last 3 Encounters: 09/20/23 115.1 kg (253 lb 12.8 oz) ECO General: Well-developed . No acute distress. Heart: Normal S1, S2. Regular rate and rhythm. Lungs: Symmetric breath sounds. Clear to auscultation. Nonlabored respirations. Abdomen: Soft, nontender, nondistended. Bowel sounds present. Extremities: No clubbing or edema. Skin: Warm, dry. No rash. Psychiatric: Cooperative. Appropriate mood and affect. Laboratory Results Recent Labs Component Name 09/20/23 0353 09/19/23212909/18/23222409/18/238 09/17/23202809/16/232019 WBC 0.4* 0.4* 0.5* - 0.6* 0.6* RBC 2.48* 2.15* 2.23* - 2.57* 2.65* HGB 7.7* 6.7* 7.0* - 8.1* 8.3* HCT 21.4* 18.4* 19.2* - 22.2* 23.1* MCV 86.3 85.6 86.1 - 86.4 87.2 MCHC 36.0 36.4* 36.5* - 36.5* 35.9 PLTCOUNT 14* 18* 27* - 8* 13* NEUTABS 0.02* 0.01* 0.01* 0.00* - 0.01* 0.00* 0.05* 0.01* LYMPHABS - - 0.50* - 0.60* 0.59* - = values in this interval not displayed. Recent Labs Component Name 09/19/23212909/18/[id number]/17/[id number]/15/[id number]/14/23 2150 POTASSIUM 3.6 4.1 4.2 - 3.9 CO2 22 23 25 - 23 BUN 10 6* 11 - 12 CREATININE 0.63 0.58 0.65 - 0.62 EGFR >90 >90 >90 - >90 GLUCOSE 111 117* 119* - 191* CALCIUM 8.8 8.7 9.1 - 8.5 MAGNESIUM 1.8 2.0 - - 1.9 PHOS 3.1 2.7* - - 2.9 ALT 50 44 41 - 34 AST 24 20 22 - 11 ALKPHOS 68 66 62 - 57 - = values in this interval not displayed. Pathology Results Personally reviewed and summarized above in Hematology & Oncology History RESULT Normal FISH Result inv(3) or t(3;3) RPN1::MECOM Fusion: not detected Deletion 5q: not detected Monosomy 7: not detected Deletion 7q: not detected t(8;21) RUNX1::WMOA0L1 Fusion: not detected 11p15 (NUP98) Rearrangement: not detected 11q23 (KMT2A) Rearrangement: not detected inv(16) or t(16;16) CBFB::MYH11 Fusion: not detected INTERPRETATION There was no evidence of RPN1::MECOM fusion due to 3q21/3q26.2 inversion or translocation, deletion 5q31, monosomy 7, deletion 7q31, RUNX1::ETJH0T8 fusion due to translocation (8;21)(q21.3;q22), 11p15 (NUP98) [...] only. Flow Cytometry Summary Concurrent flow cytometry ([id number]) shows acute myeloid leukemia. 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 FISH normal -ECHO 59% EF -FISH AML panel WNL ,Normal karyotype -HIV and hep screen NR PLAN -Started 7 + 3 09/06/23 , D15 today -F/u on D14 marrow results -follow-up on HLA, myeloid mutation panel, FISH PML -on medroxyprogesterone 10 mg QD for menstrual bleeding as thrombocytopenia, continue for duration of chemo -Daily CBC w/diff, CMP -On levaquin, posaconazole and valtrex for OI prophylaxis -Dr Stafford will be primary -Daily weights - Transfusion goals plts > 10 K, Hb >7.0, Fibronogen > 100. Please give both leukoreduced and irratiated blood if needed Thank you for the opportunity to participate in the care of this patient. Hem/Onc consult service will continue to follow closely. Please don't hesitate to contact hem/onc consult fellow via the warping mill operator or AMION if any questions or clarifications. Velma Toney MD, PGY-4 Hematology-Oncology Fellow [facility] ST REPRESENTATIVE Associated attestation - Abrahan Rivera MD - 09/20/2023 3:13 PM ARTIST REPRESENTATIVE I have seen and examined the patient with the fellow. I agree with the findings and plan of care asdocumented by the fellow. Date of fellow's note: 09/20/2023 Date of service: 09/20/2023 Abrahan Rivera MD * Queta Moreno RN - 09/20/2023 4:42 AM CST Problem: Pain/Discomfort Goal: Patient exhibits reduced pain/discomfort as evidenced by pain scores Outcome: Progressing Problem: Hemodynamic Status/Cardiac Output Goal: Patient has stable vital signs and fluid balance Outcome: Progressing Problem: Fall Risk Goal: Fall risk and fall related injury risk are minimized (interventions related to the fall risk can be found in the flowsheet documentation) Outcome: Progressing Problem: Infection Goal: Signs and symptoms of infections are decreased or avoided Outcome: Progressing ST REPRESENTATIVE * Justin Moon RN - 09/19/2023 3:22 PM CST Care Coordination Progress Note Anticipated level of care at discharge: Home: Anticipated level of care provider: None: Anticipated Discharge Date: 10/03/23: Discharge Plan: Return home when ready. Patient is Day 14 of 7+3 Induction chemotherapy ?? In-patient care to continue through chemo, resolution of [employer], and count recovery with ANC goal >500. Orientation Level: Oriented X4: Family Support (Name and Phone): Extended Emergency Contact Information Primary Emergency Contact: Raheem Lai Mobile Relation: Significant other Secondary Emergency Contact: French Rosenthal Mobile Relation: Friend [employer] Field Processing Supervisor needed? No Transportation at Discharge: Friend: READMISSION RISK SCORE is 7 at 3:22 PM 09/19/2023.: Name: Justin Moon RN [phone] ST REPRESENTATIVE * Soraya Malik MD - 09/19/2023 3:04 PM CST Internal Medicine Progress Note 09/19/2023 @ 3:04 PM Admit Date: 09/03/2023 - Length of Stay 16 Day(s) Subjective: Examined at bedside. No acute issues. Later in day she had one episode of tachycardia when ambulating but no HD instability. Assessed again and she was sleeping and comfortable. Put her on tele and asked nurse to get an EKG. Electrolytes on AM labs WNL Objective: Temp: [97.4 ??F (36.3 ??C)-99.1 ??F (37.3 ??C)] 99.1 ??F (37.3 ??C) Pulse: [103-138] 138 Resp: [18-19] 18 BP: (117-137)/(73-97) 117/81 Physical Exam General: NAD. Resting, appears comfortable HENT: NC/AT Eyes: Anicteric. Non-injected. Chest: No increased work of breathing. Barone at right chest. Cardiovascular: tachy rate Extremities: BLE edema, pitting present -- improving Neurological: Alert; conversational and follows commands. Moves all extremities spontaneously without issue. No focal deficits. Psych: Appropriate mood and affect Data reviewed including pertinent labs, imaging, diagnostics. 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 ([facility]-HCC) Pancytopenia ([facility]-HCC) Tonsillitis #AML #Pancytopenia - BMB from OSH noting large proportion of blasts; final report noting AML - Repeat BMB today to ensure appropriate collection of all testing required prior to treatment - s/p Barone placement to begin chemo - TTE (09/05) unremarkable PLAN: - DCed allopurinol - Continue OI ppx: Levofloxacin, Posaconazole, Valacyclovir - medroxyprogesterone 10 in setting of thrombocytopenia and menstrual bleeding - Daily labs: CBC??w/diff, CMP, Uric Acid, - Transfuse for plts > 10 K, Hb >7.0, Fibronogen > 100 #tachycardia ? -An episode on 09/19 when pt ambulated. -continue tele monitoring, Mg and K replacement as needed. #Abdominal Pain -- improved #Diarrhea -- resolved DDx: Reflux vs. cramping given poor absorption and diarrhea -KUB unremarkable - Sxs relief: prn pepcid, simethicone, bentyl - C. diff cancelled #Tonsillitis - Noted at OSH and started on abx; continued on Augmentin at [facility] which was completed - Continue to monitor #Disposition - Per H/O team. Requires multiple weeks inpatient. Nutrition: Regular diet DVT Prophylaxis: SCDs Code: Full Dispo: Above The best way to reach me is through Secure Chat. Soraya Malik MD 09/19/[address]23 ST REPRESENTATIVE * Gaurav Moyer - 09/19/2023 12:10 PM CST Music Therapy Progress Note Start Time: 1035 End Time: 1050 Music Therapy Goals: Increase relaxation Intervention Provided: Provide familiar / significant music, Utilized iso- principle and Provide opportunities for social interaction Therapy Type: Individual Therapy Patient Response: Appropriate Affect: Anxious and Mood, appropriate Treatment Modality: Music Therapy Music Therapist Gaurav Moyer visited patient in [facility] room. Patient was observed sitting up in chair, alert and oriented. Patient reported feeling anxiety relating to an upcoming biopsy and requested live music relaxation. During interventions, Patient made eye contact,moved in time with the music, sang, and mouthed familiar lyrics. At conclusion of session, no nonverbal indicators of distress observed. ERLINDA Philip, MT-BC 09/19/2023 12:[address] REPRESENTATIVE * Anita Rios MD - 09/19/2023 8:00 AM CST Images from the original note were not included. HEMATOLOGY/ONCOLOGY INPATIENT PROGRESS NOTE Name: Selvin Mckeon Age: [age] year old Date of : 1985 Date of Service: 09/19/2023 Reason for Consult: AML HEMATOLOGY & ONCOLOGY HISTORY Principal Diagnosis: AML Current Therapy: 7+ 3 Prior Hematology/Oncology History: None SUBJECTIVE History of Present Illness Chief Complaint: Fatigue, flu like symptoms History of Present Illness: Selvin Mckeon is a 38 year old female with no PMH who presented to [facility] presenting with fevers and flu like symptoms, initially thought to have tonsillitis seen on CT face?. Was treated with vanc cefepime and then CTX but had persistent pancytopenia so bone marrow biopsy was done whichshowed 78% blast on the bone marrow flow cytometry. Pt was transferred for concern for AML Formal bone marrow report still pending from [facility] - Lives alone with daughter ( 11 y old) who is currently staying with her dad No PMH of cancers , is adopted so not sure about FH No drugs or smoking or alcohol use Interval hx D14 7+3 NAEO VSS Patient with no acute complaints, doing well. Review of Systems: As noted in HPI. All other systems reviewed and negative. Past Medical & Surgical History Patient Active Problem List Diagnosis ??? Pancytopenia (CMS-HCC) ??? Tonsillitis ??? 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 NEGATIVE PAST MEDICAL HISTORY - SEE PROBLEM LIST Past Surgical History: Procedure Laterality Date ??? Section ??? Cholecystectomy ??? KIDNEY STONES, REMOVAL Social History Social History Tobacco Use ??? Smoking status: Former Packs/day: 1 Types: Cigarettes Start date: 2004 Quit date: 2010 Years since quittin.0 ??? Smokeless tobacco: Never Substance Use Topics ??? Alcohol use: Yes Comment: occasional Family History Family History Family history unknown: Yes Medications SCHEDULED MEDICATIONS: 0.9% NaCl injection 3 mL, Intracatheter, q8h famotidine (Pepcid) tablet 20 mg, Oral, BID levoFLOXacin (Levaquin) tablet 500 mg, Oral, QDAY medroxyPROGESTERone (Provera) tablet 10 mg, Oral, QDAY perflutren lipid microsphere (Definity) injection 0.5 mL, Intravenous, intra- Procedure multiple posaconazole (Noxafil) tablet 300 mg, Oral, QDAY WITH DINNER potassium chloride ER (Klor-Con M) tablet 20 mEq, Oral, QDAY WITH BREAKFAST valACYclovir (Valtrex) tablet 500 mg, Oral, BID [] oxymetazoline (Afrin) 0.05 % nasal spray 2 spray, Each Nostril, BID CONTINUOUS MEDICATIONS: PRN MEDICATIONS: 0.9% NaCl injection 1-10 mL, Intracatheter, PRN acetaminophen (Tylenol) tablet 650 mg, Oral, q6h PRN dicyclomine (Bentyl) tablet 20 mg, Oral, TID PRN heparin lock flush injection 500 Units, Intracatheter, PRN LORazepam (Ativan) injection 1 mg, Intravenous, q8h PRN LORazepam (Ativan) tablet 1 mg, Oral, q8h PRN melatonin tablet 3 mg, Oral, AT BEDTIME PRN ondansetron (disintegrating) (Zofran ODT) tablet 8 mg, Oral, BID PRN ondansetron (Zofran) injection 8 mg, Intravenous, BID PRN prochlorperazine (Compazine) injection 5 mg, Intravenous, q4h PRN prochlorperazine (Compazine) tablet 10 mg, Oral, q4h PRN simethicone (Mylicon) chew tablet 80 mg, Oral, 4X/day PRN Allergies No Known Allergies OBJECTIVE Physical Exam Vitals: 09/19/23 0009 09/19/23 0351 09/19/23 0823 09/19/23 1236 BP: 119/87 129/73 126/88 117/81 Pulse: (!) 119 109 (!) 110 (!) 138 Resp: 18 18 18 Temp: 98.5 ??F (36.9 ??C) 98.8 ??F (37.1 ??C) 97.4 ??F (36.3 ??C) 99.1 ??F (37.3 ??C) SpO2: 100% 98% 100% 100% Weight: 115.6 kg (254 lb 12.8 oz) Height: Wt Readings from Last 3 Encounters: 09/19/23 115.6 kg (254 lb 12.8 oz) ECO General: Well-developed . No acute distress. Heart: Normal S1, S2. Regular rate and rhythm. Lungs: Symmetric breath sounds. Clear to auscultation. Nonlabored respirations. Abdomen: Soft, nontender, nondistended. Bowel sounds present. Extremities: No clubbing or edema. Skin: Warm, dry. No rash. Psychiatric: Cooperative. Appropriate mood and affect. Laboratory Results Recent Labs Component Name 09/18/23222409/18/[id number]/17/[id number]/16/[id number] WBC 0.5* 0.4* 0.6* 0.6* RBC 2.23* 2.45* 2.57* 2.65* HGB 7.0* 7.7* 8.1* 8.3* HCT 19.2* 21.4* 22.2* 23.1* MCV 86.1 87.3 86.4 87.2 MCHC 36.5* 36.0 36.5* 35.9 PLTCOUNT 27* 33* 8* 13* NEUTABS 0.01* 0.00* 0.00* 0.01* 0.00* 0.05* 0.01* LYMPHABS 0.50* - 0.60* 0.59* Recent Labs Component Name 09/18/23222409/17/[id number]/16/[id number] POTASSIUM 4.1 4.2 4.0 - 3.9 - 3.9 CO2 23 25 24 - 23 - 20* BUN 6* 11 7 - 12 - 14 CREATININE 0.58 0.65 0.62 - 0.62 - 0.75 EGFR >90 >90 >90 - >90 - >90 GLUCOSE 117* 119* 139* - 191* - 266* CALCIUM 8.7 9.1 8.8 - 8.5 - 8.4 MAGNESIUM 2.0 - - - 1.9 - 2.1 PHOS 2.7* - - - 2.9 - 1.9* ALT 44 41 36 - 34 - 66* AST 20 22 15 - 11 - 62* ALKPHOS 66 62 57 - 57 - 56 - = values in this interval not displayed. Pathology Results Personally reviewed and summarized above in Hematology & Oncology History RESULT Normal FISH Result inv(3) or t(3;3) RPN1::MECOM Fusion: not detected Deletion 5q: not detected Monosomy 7: not detected Deletion 7q: not detected t(8;21) [id number] Fusion: not detected 11p15 (NUP98) Rearrangement: not detected 11q23 (KMT2A) Rearrangement: not detected inv(16) or t(16;16) CBFB::MYH11 Fusion: not detected INTERPRETATION There was no evidence of RPN1::MECOM fusion due to 3q21/3q26.2 inversion or translocation, deletion 5q31, monosomy 7, deletion 7q31, RUNX1::[id number] fusion due to translocation (8;21)(q21.3;q22), 11p15 (NUP98) [...] flow cytometry () shows acute myeloid leukemia. 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 FISH normal -ECHO 59% EF -FISH AML panel WNL ,Normal karyotype -HIV and hep screen NR PLAN -Started 7 + 3 09/06/23 , D14 today -will obtain bone marrow on today -day 14 bone marrow -follow-up on HLA, myeloid mutation panel, FISH PML -on medroxyprogesterone 10 mg QD for menstrual bleeding as thrombocytopenia, continue for duration of chemo -Daily CBC w/diff, CMP -On levaquin, posaconazole and valtrex for OI prophylaxis -Dr Stafford will be primary -Daily weights - Transfusion goals plts > 10 K, Hb >7.0, Fibronogen > 100. Please give both leukoreduced and irratiated blood if needed Thank you for the opportunity to participate in the care of this patient. Hem/Onc consult service will continue to follow closely. Please don't hesitate to contact hem/onc consult fellow via the warping mill operator or AMION if any questions or clarifications. Anita Rios MD Hematology Oncology Fellow PGY4 [facility] ST REPRESENTATIVE Associated attestation - Abrahan Rivera MD - 09/19/2023 4:45 PM ARTIST REPRESENTATIVE I have seen and examined the patient with the fellow. I agree with the findings and plan of care asdocumented by the fellow. Date of fellow's note: 09/19/2023 Date of service: 09/19/2023 Abrahna Rivera MD * Queta Moreno RN - 09/19/2023 12:40 AM CST Problem: Fall Risk Goal: Fall risk and fall related injury risk are minimized (interventions related to the fall risk can be found in the flowsheet documentation) Outcome: Progressing Problem: Hemodynamic Status/Cardiac Output Goal: Patient has stable vital signs and fluid balance Outcome: Progressing Problem: Nutrient: Increased nutrient needs (specify) Goal: Total intake will meet estimated nutrient needs Outcome: Progressing Problem: Pain/Discomfort Goal: Patient exhibits reduced pain/discomfort as evidenced by pain scores Outcome: Progressing Problem: Infection Goal: Signs and symptoms of infections are decreased or avoided Outcome: Progressing ST REPRESENTATIVE * Soraya Malik MD - 09/18/2023 5:01 PM CST Internal Medicine Progress Note 09/18/2023 @ 5:02 PM Admit Date: 09/03/2023 - Length of Stay 15 Day(s) Subjective: 09/10: Given [facility] paperwork this AM; told that if there are issues to not hesitate to ask either medicine or oncology teams for assistance 09/11: NAEON. Notes slowly improving swelling. Continues diuresis w/ ~2L Uop thus far today. ANC 100, Hgb, plts trending down. Allopurinol and IVF DC'd. AC checks started, thus far not needing insulin. 09/12: NAEON. Some diarrhea starting this AM. Again notes improved swelling. SO at bedside and asked about nutrition. ANC 80, Hgb 7, plts 16. Improved BG, LFTs. 09/13: NAEON. Seen walking around in [place]. Diarrhea and fatigue, otherwise neg ROS. Labs stable. Did not require transfusion overnight. 09/14: NAEON. In bed this AM. Feels fatigue, but not ill. Labs borderline but not requiring trasfusions at this time. BG normal, will DC AC. 09/15: Overnight abdominal pain, b/l upper quadrants w/ radiation to front of stomach. KUB unremarkable. Still having diarrhea, c diff pending. Pain better this AM. Does endorse belching and reflux like symptoms. Has simethicone, pepcid. Add bentyl prn. 09/16: NAEON. Upright in chair. Abdominal pain better. Feels fatigued. Still with appetite. Improved labs post transfusion, Hgb 8.3, plt 20, ANC 10 09/17: NAEON. Upright and active this AM. Cleaning and studying on computer. No further diarrhea, c. diff cancelled. Labs stable and no transfusions needed. Pending repeat BMBx 09/19. 09/18: examined at bedside. No acute issues.. Objective: Temp: [97.6 ??F (36.4 ??C)-99.5 ??F (37.5 ??C)] 98.1 ??F (36.7 ??C) Pulse: [86-103] 103 Resp: [18-19] 19 BP: (109-137)/(68-93) 137/92 Physical Exam General: NAD. Resting, appears comfortable HENT: NC/AT Eyes: Anicteric. Non-injected. Chest: No increased work of breathing. Barone at right chest. Cardiovascular: tachy rate Extremities: BLE edema, pitting present -- improving Neurological: Alert; conversational and follows commands. Moves all extremities spontaneously without issue. No focal deficits. Psych: Appropriate mood and affect Data reviewed including pertinent labs, imaging, diagnostics. 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) Pancytopenia (CMS-HCC) Tonsillitis #AML #Pancytopenia - BMB from OSH noting large proportion of blasts; final report noting AML - Repeat BMB today to ensure appropriate collection of all testing required prior to treatment - s/p Barone placement to begin chemo - TTE (09/05) unremarkable PLAN: - DC allopurinol - Continue OI ppx: Levofloxacin, Posaconazole, Valacyclovir - medroxyprogesterone 10 in setting of thrombocytopenia and menstrual bleeding - Daily labs: CBC??w/diff, CMP, Uric Acid, - Transfuse for plts > 10 K, Hb >7.0, Fibronogen > 100 - Holding IVF given swelling #Abdominal Pain -- improved #Diarrhea -- resolved DDx: Reflux vs. cramping given poor absorption and diarrhea -KUB unremarkable - Sxs relief: prn pepcid, simethicone, bentyl - C. diff cancelled #Tonsillitis - Noted at OSH and started on abx; continued on Augmentin at [facility] which was completed - Continue to monitor #Disposition - Per H/O team. Requires multiple weeks inpatient. Nutrition: Regular diet DVT Prophylaxis: SCDs Code: Full Dispo: Above The best way to reach me is through Secure Chat. Soraya Malik MD 09/18/[address]23 ST REPRESENTATIVE * Gaurav Moyer - 09/18/2023 3:17 PM CST Music Therapy Progress Note Start Time: 1315 End Time: 1350 Music Therapy Goals: Develop rapport, Increase meaningful social interaction and Increase spiritualsupport Intervention Provided: Provide familiar / significant music and Provide opportunities for social interaction Therapy Type: Individual Therapy Patient Response: Appropriate Affect: Mood, appropriate Treatment Modality: Music Therapy Music Therapist Gaurav Moyer visited patient in [facility] room. Patient was observed sitting up in chair, alert and oriented. During interventions, Patient smiled, sang, moved in time with the music, and made eye contact. At conclusion of session, no nonverbal indicators of distress observed. Gaurav Moyer, ERLINDA, MT-BC 09/18/2023 3:[address] REPRESENTATIVE * Juana Verduzco RN - 09/18/2023 1:17 PM CST Problem: Infection Goal: Signs and symptoms of infections are decreased or avoided Outcome: Progressing Problem: Pain/Discomfort Goal: Patient exhibits reduced pain/discomfort as evidenced by pain scores Outcome: Progressing Problem: Fall Risk Goal: Fall risk and fall related injury risk are minimized (interventions related to the fall risk can be found in the flowsheet documentation) Outcome: Progressing Problem: Hemodynamic Status/Cardiac Output Goal: Patient has stable vital signs and fluid balance Outcome: Progressing Problem: Nutrient: Increased nutrient needs (specify) Goal: Total intake will meet estimated nutrient needs Outcome: Progressing ST REPRESENTATIVE * Mary Galindo - 09/18/2023 11:39 AM CST Wool Washer Feeder attempted initial visit. Patient indicated she is trying to rest and requested hand scraper return at another time. Patient is aware pastoral care is available as needed and assured of prayer support. Plan: Initial visit to assess emotional and spiritual needs; develop plan of care; presence Wool Washer Feederkevon [phone] (desk [phone]) at home independent call center agent chaplain Baron [id number] (office [phone]) ST REPRESENTATIVE * Rajesh Becerril DO - 09/18/2023 8:00 AM CST Images from the original note were not included. HEMATOLOGY/ONCOLOGY INPATIENT PROGRESS NOTE Name: Selvin Mckeon Age: [age] year old Date of : 1985 Date of Service: 09/18/2023 Reason for Consult: AML HEMATOLOGY & ONCOLOGY HISTORY Principal Diagnosis: AML Current Therapy: 7+ 3 Prior Hematology/Oncology History: None SUBJECTIVE History of Present Illness Chief Complaint: Fatigue, flu like symptoms History of Present Illness: Selvin Mckeon is a 38 year old female with no PMH who presented to [facility] presenting with fevers and flu like symptoms, initially thought to have tonsillitis seen on CT face?. Was treated with vanc cefepime and then CTX but had persistent pancytopenia so bone marrow biopsy was done whichshowed 78% blast on the bone marrow flow cytometry. Pt was transferred for concern for AML Formal bone marrow report still pending from OSH [facility] - Lives alone with daughter ( 11 y old) who is currently staying with her dad No PMH of cancers , is adopted so not sure about FH No drugs or smoking or alcohol use Interval hx D13 7+3 NAEO VSS Patient with no acute complaints, doing well. Review of Systems: As noted in HPI. All other systems reviewed and negative. Past Medical & Surgical History Patient Active Problem List Diagnosis ??? Pancytopenia (CMS-HCC) ??? Tonsillitis ??? 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 NEGATIVE PAST MEDICAL HISTORY - SEE PROBLEM LIST Past Surgical History: Procedure Laterality Date ??? Section ??? Cholecystectomy ??? KIDNEY STONES, REMOVAL Social History Social History Tobacco Use ??? Smoking status: Former Packs/day: 1 Types: Cigarettes Start date: 2004 Quit date: 2010 Years since quittin.0 ??? Smokeless tobacco: Never Substance Use Topics ??? Alcohol use: Yes Comment: occasional Family History Family History Family history unknown: Yes Medications SCHEDULED MEDICATIONS: 0.9% NaCl injection 3 mL, Intracatheter, q8h famotidine (Pepcid) tablet 20 mg, Oral, BID levoFLOXacin (Levaquin) tablet 500 mg, Oral, QDAY medroxyPROGESTERone (Provera) tablet 10 mg, Oral, QDAY oxymetazoline (Afrin) 0.05 % nasal spray 2 spray, Each Nostril, BID perflutren lipid microsphere (Definity) injection 0.5 mL, Intravenous, intra- Procedure multiple posaconazole (Noxafil) tablet 300 mg, Oral, QDAY WITH DINNER potassium chloride ER (Klor-Con M) tablet 20 mEq, Oral, QDAY WITH BREAKFAST valACYclovir (Valtrex) tablet 500 mg, Oral, BID CONTINUOUS MEDICATIONS: PRN MEDICATIONS: 0.9% NaCl infusion rate and volume, Intravenous, Once PRN 0.9% NaCl injection 1-10 mL, Intracatheter, PRN acetaminophen (Tylenol) tablet 650 mg, Oral, q6h PRN dicyclomine (Bentyl) tablet 20 mg, Oral, TID PRN heparin lock flush injection 500 Units, Intracatheter, PRN LORazepam (Ativan) injection 1 mg, Intravenous, q8h PRN LORazepam (Ativan) tablet 1 mg, Oral, q8h PRN melatonin tablet 3 mg, Oral, AT BEDTIME PRN ondansetron (disintegrating) (Zofran ODT) tablet 8 mg, Oral, BID PRN ondansetron (Zofran) injection 8 mg, Intravenous, BID PRN prochlorperazine (Compazine) injection 5 mg, Intravenous, q4h PRN prochlorperazine (Compazine) tablet 10 mg, Oral, q4h PRN simethicone (Mylicon) chew tablet 80 mg, Oral, 4X/day PRN Allergies No Known Allergies OBJECTIVE Physical Exam Vitals: 09/18/23 0033 09/18/23 0036 09/18/23 0445 09/18/23 0754 BP: 131/75 120/77 118/76 Pulse: 86 102 87 Resp: 18 19 Temp: 97.9 ??F (36.6 ??C) 99.5 ??F (37.5 ??C) 98.1 ??F (36.7 ??C) SpO2: 99% 99% 98% Weight: 115.6 kg (254 lb 12.8 oz) Height: Wt Readings from Last 3 Encounters: 09/18/23 115.6 kg (254 lb 12.8 oz) ECO General: Well-developed . No acute distress. Heart: Normal S1, S2. Regular rate and rhythm. Lungs: Symmetric breath sounds. Clear to auscultation. Nonlabored respirations. Abdomen: Soft, nontender, nondistended. Bowel sounds present. Extremities: No clubbing or edema. Skin: Warm, dry. No rash. Psychiatric: Cooperative. Appropriate mood and affect. Laboratory Results Recent Labs Component Name 09/17/23202809/16/[id number]/15/[id number]/13/[id number]/12/[id number] WBC 0.6* 0.6* 0.5* - 0.5* RBC 2.57* 2.65* 2.60* - 2.17* HGB 8.1* 8.3* 8.3* - 7.0* HCT 22.2* 23.1* 22.4* - 19.2* MCV 86.4 87.2 86.2 - 88.5 MCHC 36.5* 35.9 37.1* - 36.5* PLTCOUNT 8* 13* 20* - 13* NEUTABS 0.01* 0.00* 0.05* 0.01* 0.01* - 0.06* 0.02* LYMPHABS 0.60* 0.59* - - 0.48* - = values in this interval not displayed. Recent Labs Component Name 09/17/23202809/16/[id number]/15/[id number]/14/[id number]/09/[id number]/08/[id number]/06/23 0026 09/05/23 0909 09/04/23 0527 POTASSIUM 4.2 4.0 3.9 3.9 - 3.9 - 4.1 3.7 CO2 24 23 - 20* - 26 27 BUN 11 7 9 12 - 14 - 9 8 CREATININE 0.65 0.62 0.66 0.62 - 0.75 - 0.74 0.70 EGFR >90 >90 >90 >90 - >90 - >90 >90 GLUCOSE 119* 139* 124* 191* - 266* - 95 89 CALCIUM 9.1 8.8 8.8 8.5 - 8.4 - 9.1 8.7 MAGNESIUM - - - 1.9 - 2.1 - 2.3 2.2 PHOS - - - 2.9 - 1.9* - - 4.3 ALT 41 36 36 34 - 66* - 38 24 AST 22 15 16 11 - 62* - 38* 25 ALKPHOS 62 57 55 57 - 56 - 62 58 - = values in this interval not displayed. Pathology Results Personally reviewed and summarized above in Hematology & Oncology History RESULT Normal FISH Result inv(3) or t(3;3) RPN1::MECOM Fusion: not detected Deletion 5q: not detected Monosomy 7: not detected Deletion 7q: not detected t(8;21) RUNX1::[id number] Fusion: not detected 11p15 (NUP98) Rearrangement: not detected 11q23 (KMT2A) Rearrangement: not detected inv(16) or t(16;16) CBFB::MYH11 Fusion: not detected INTERPRETATION There was no evidence of RPN1::MECOM fusion due to 3q21/3q26.2 inversion or translocation, deletion 5q31, monosomy 7, deletion 7q31, RUNX1::ZAIB4F3 fusion due to translocation (8;21)(q21.3;q22), 11p15 (NUP98) [...] flow cytometry () shows acute myeloid leukemia. 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 FISH normal -ECHO 59% EF -FISH AML panel WNL ,Normal karyotype -HIV and hep screen NR PLAN -Started 7 + 3 09/06/23 , D13 today -will obtain bone marrow on 09/19/2023-day 14 bone marrow -follow-up on HLA, myeloid mutation panel, FISH PML -on medroxyprogesterone 10 mg QD for menstrual bleeding as thrombocytopenia, continue for duration of chemo -Daily CBC w/diff, CMP -On levaquin, posaconazole and valtrex for OI prophylaxis -Dr Stafford will be primary -Daily weights - Transfusion goals plts > 10 K, Hb >7.0, Fibronogen > 100. Please give both leukoreduced and irratiated blood if needed Thank you for the opportunity to participate in the care of this patient. Hem/Onc consult service will continue to follow closely. Please don't hesitate to contact hem/onc consult fellow via the warping mill operator or AMION if any questions or clarifications. Rajesh Becerril, DO Internal Medicine, PGY-[address] ST REPRESENTATIVE Associated attestation - Abrahan Rivera MD - 09/18/2023 4:02 PM ARTIST REPRESENTATIVE I have seen and examined the patient with the resident. I agree with the findings and plan of care as documented by the resident. Date of resident's note: 09/18/2023 Date of service: 09/18/2023 Abrahan Rivera MD * Sheron Weber RN - 09/18/2023 5:59 AM CST Problem: Infection Goal: Signs and symptoms of infections are decreased or avoided Outcome: Progressing Problem: Pain/Discomfort Goal: Patient exhibits reduced pain/discomfort as evidenced by pain scores Outcome: Progressing Problem: Fall Risk Goal: Fall risk and fall related injury risk are minimized (interventions related to the fall risk can be found in the flowsheet documentation) Outcome: Progressing ST REPRESENTATIVE * Myah Roberts DO - 09/17/2023 11:03 AM CST Internal Medicine Progress Note 09/17/2023 @ 11:03 AM Admit Date: 09/03/2023 - Length of Stay 14 Day(s) Subjective: 09/10: Given [facility] paperwork this AM; told that if there are issues to not hesitate to ask either medicine or oncology teams for assistance 09/11: NAEON. Notes slowly improving swelling. Continues diuresis w/ ~2L Uop thus far today. ANC 100, Hgb, plts trending down. Allopurinol and IVF DC'd. AC checks started, thus far not needing insulin. 09/12: NAEON. Some diarrhea starting this AM. Again notes improved swelling. SO at bedside and asked about nutrition. ANC 80, Hgb 7, plts 16. Improved BG, LFTs. 09/13: NAEON. Seen walking around in [place]. Diarrhea and fatigue, otherwise neg ROS. Labs stable. Did not require transfusion overnight. 09/14: NAEON. In bed this AM. Feels fatigue, but not ill. Labs borderline but not requiring trasfusions at this time. BG normal, will DC AC. 09/15: Overnight abdominal pain, b/l upper quadrants w/ radiation to front of stomach. KUB unremarkable. Still having diarrhea, c diff pending. Pain better this AM. Does endorse belching and reflux like symptoms. Has simethicone, pepcid. Add bentyl prn. 09/16: NAEON. Upright in chair. Abdominal pain better. Feels fatigued. Still with appetite. Improved labs post transfusion, Hgb 8.3, plt 20, ANC 10 1/3: NAEON. Upright and active this AM. Cleaning and studying on computer. No further diarrhea, c. diff cancelled. Labs stable and no transfusions needed. Pending repeat BMBx 09/19. Objective: Temp: [97.5 ??F (36.4 ??C)-99 ??F (37.2 ??C)] 98.7 ??F (37.1 ??C) Pulse: [86-113] 104 Resp: [18] 18 BP: (105-140)/(66-87) 105/76 Physical Exam General: NAD. Resting, appears comfortable HENT: NC/AT Eyes: Anicteric. Non-injected. Chest: No increased work of breathing. Barone at right chest. Cardiovascular: tachy rate Extremities: BLE edema, pitting present -- improving Neurological: Alert; conversational and follows commands. Moves all extremities spontaneously without issue. No focal deficits. Psych: Appropriate mood and affect Data reviewed including pertinent labs, imaging, diagnostics. 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 ([facility]-HCC) Pancytopenia ([facility]) Tonsillitis #AML #Pancytopenia - BMB from OSH noting large proportion of blasts; final report noting AML - Repeat BMB today to ensure appropriate collection of all testing required prior to treatment - s/p Barone placement to begin chemo - TTE (09/05) unremarkable PLAN: - D12 induction with 7 + 3 - DC allopurinol - Continue OI ppx: Levofloxacin, Posaconazole, Valacyclovir - medroxyprogesterone 10 in setting of thrombocytopenia and menstrual bleeding - Daily labs: CBC??w/diff, CMP, Uric Acid, - Transfuse for plts > 10 K, Hb >7.0, Fibronogen > 100 - Holding IVF given swelling #Abdominal Pain -- improved #Diarrhea -- resolved DDx: Reflux vs. cramping given poor absorption and diarrhea -KUB unremarkable - Sxs relief: prn pepcid, simethicone, bentyl - C. diff cancelled #Tonsillitis - Noted at OSH and started on abx; continued on Augmentin at [facility] which was completed - Continue to monitor #Disposition - Per H/O team. Requires multiple weeks inpatient. Nutrition: Regular diet DVT Prophylaxis: SCDs Code: Full Dispo: Above The best way to reach me is through Secure Chat. Myah Roberts DO 09/17/[address]23 ST REPRESENTATIVE * JerricaRajesh gongDO - 09/17/2023 9:48 AM CST Images from the original note were not included. HEMATOLOGY/ONCOLOGY INPATIENT PROGRESS NOTE Name: Selvin Mckeon Age: [age] year old Date of : 1985 Date of Service: 09/17/2023 Reason for Consult: AML HEMATOLOGY & ONCOLOGY HISTORY Principal Diagnosis: AML Current Therapy: 7+ 3 Prior Hematology/Oncology History: None SUBJECTIVE History of Present Illness Chief Complaint: Fatigue, flu like symptoms History of Present Illness: Selvin Mckeon is a 38 year old female with no PMH who presented to [facility] presenting with fevers and flu like symptoms, initially thought to have tonsillitis seen on CT face?. Was treated with vanc cefepime and then CTX but had persistent pancytopenia so bone marrow biopsy was done whichshowed 78% blast on the bone marrow flow cytometry. Pt was transferred for concern for AML Formal bone marrow report still pending from OSH [facility] - Lives alone with daughter ( 11 y old) who is currently staying with her dad No PMH of cancers , is adopted so not sure about FH No drugs or smoking or alcohol use Interval hx D12 7+3 NAEO VSS Patient with no acute complaints, doing well. Review of Systems: As noted in HPI. All other systems reviewed and negative. Past Medical & Surgical History Patient Active Problem List Diagnosis ??? Pancytopenia (CMS-HCC) ??? Tonsillitis ??? 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 NEGATIVE PAST MEDICAL HISTORY - SEE PROBLEM LIST Past Surgical History: Procedure Laterality Date ??? Section ??? Cholecystectomy ??? KIDNEY STONES, REMOVAL Social History Social History Tobacco Use ??? Smoking status: Former Packs/day: 1 Types: Cigarettes Start date: 2004 Quit date: 2010 Years since quittin.0 ??? Smokeless tobacco: Never Substance Use Topics ??? Alcohol use: Yes Comment: occasional Family History Family History Family history unknown: Yes Medications SCHEDULED MEDICATIONS: 0.9% NaCl injection 3 mL, Intracatheter, q8h famotidine (Pepcid) tablet 20 mg, Oral, BID levoFLOXacin (Levaquin) tablet 500 mg, Oral, QDAY medroxyPROGESTERone (Provera) tablet 10 mg, Oral, QDAY oxymetazoline (Afrin) 0.05 % nasal spray 2 spray, Each Nostril, BID perflutren lipid microsphere (Definity) injection 0.5 mL, Intravenous, intra- Procedure multiple posaconazole (Noxafil) tablet 300 mg, Oral, QDAY WITH DINNER potassium chloride ER (Klor-Con M) tablet 20 mEq, Oral, QDAY WITH BREAKFAST valACYclovir (Valtrex) tablet 500 mg, Oral, BID CONTINUOUS MEDICATIONS: PRN MEDICATIONS: 0.9% NaCl injection 1-10 mL, Intracatheter, PRN acetaminophen (Tylenol) tablet 650 mg, Oral, q6h PRN dicyclomine (Bentyl) tablet 20 mg, Oral, TID PRN heparin lock flush injection 500 Units, Intracatheter, PRN LORazepam (Ativan) injection 1 mg, Intravenous, q8h PRN LORazepam (Ativan) tablet 1 mg, Oral, q8h PRN melatonin tablet 3 mg, Oral, AT BEDTIME PRN ondansetron (disintegrating) (Zofran ODT) tablet 8 mg, Oral, BID PRN ondansetron (Zofran) injection 8 mg, Intravenous, BID PRN prochlorperazine (Compazine) injection 5 mg, Intravenous, q4h PRN prochlorperazine (Compazine) tablet 10 mg, Oral, q4h PRN simethicone (Mylicon) chew tablet 80 mg, Oral, 4X/day PRN Allergies No Known Allergies OBJECTIVE Physical Exam Vitals: 09/16/23 1922 09/16/23 2325 09/17/23 0412 09/17/23 0756 BP: 124/82 138/81 136/66 105/76 Pulse: 99 86 103 104 Resp: 18 18 18 Temp: 98.4 ??F (36.9 ??C) 98.5 ??F (36.9 ??C) 99 ??F (37.2 ??C) 98.7 ??F (37.1 ??C) SpO2: 96% 99% 99% 98% Weight: 115.9 kg (255 lb 9.6 oz) Height: Wt Readings from Last 3 Encounters: 09/16/23 115.9 kg (255 lb 9.6 oz) ECO General: Well-developed . No acute distress. Heart: Normal S1, S2. Regular rate and rhythm. Lungs: Symmetric breath sounds. Clear to auscultation. Nonlabored respirations. Abdomen: Soft, nontender, nondistended. Bowel sounds present. Extremities: No clubbing or edema. Skin: Warm, dry. No rash. Psychiatric: Cooperative. Appropriate mood and affect. Laboratory Results Recent Labs Component Name 09/16/23201909/15/[id number]/14/[id number]/[id number]/[id number]/11/[id number] WBC 0.6* 0.5* 0.5* - 0.5* 0.5* RBC 2.65* 2.60* 2.14* - 2.17* 2.16* HGB 8.3* 8.3* 6.8* - 7.0* 7.0* HCT 23.1* 22.4* 18.9* - 19.2* 19.3* MCV 87.2 86.2 88.3 - 88.5 89.4 MCHC 35.9 37.1* 36.0 - 36.5* 36.3 PLTCOUNT 13* 20* 6* - 13* 16* NEUTABS 0.05* 0.01* 0.01* - - 0.06* 0.02* 0.08* 0.08* LYMPHABS 0.59* - - - 0.48* 0.40* - = values in this interval not displayed. Recent Labs Component Name 09/16/23201909/15/23203909/14/[id number]/09/[id number]/06/23 0026 09/05/23 0909 09/04/23 0527 POTASSIUM 4.0 3.9 3.9 - 3.9 - 4.1 3.7 CO2 24 23 - 20* - 26 27 BUN 7 9 12 - 14 - 9 8 CREATININE 0.62 0.66 0.62 - 0.75 - 0.74 0.70 EGFR >90 >90 >90 - >90 - >90 >90 GLUCOSE 139* 124* 191* - 266* - 95 89 CALCIUM 8.8 8.8 8.5 - 8.4 - 9.1 8.7 MAGNESIUM - - 1.9 - 2.1 - 2.3 2.2 PHOS - - 2.9 - 1.9* - - 4.3 ALT 36 36 34 - 66* - 38 24 AST 15 16 11 - 62* - 38* 25 ALKPHOS 57 55 57 - 56 - 62 58 - = values in this interval not displayed. Pathology Results Personally reviewed and summarized above in Hematology & Oncology History RESULT Normal FISH Result inv(3) or t(3;3) RPN1::MECOM Fusion: not detected Deletion 5q: not detected Monosomy 7: not detected Deletion 7q: not detected t(8;21) RUNX1::[id number] Fusion: not detected 11p15 (NUP98) Rearrangement: not detected 11q23 (KMT2A) Rearrangement: not detected inv(16) or t(16;16) CBFB::MYH11 Fusion: not detected INTERPRETATION There was no evidence of RPN1::MECOM fusion due to 3q21/3q26.2 inversion or translocation, deletion 5q31, monosomy 7, deletion 7q31, RUNX1::YFRO8F4 fusion due to translocation (8;21)(q21.3;q22), 11p15 (NUP98) [...] only. Flow Cytometry Summary Concurrent flow cytometry ([id number]) shows acute myeloid leukemia. 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 FISH normal -ECHO 59% EF -FISH AML panel WNL ,Normal karyotype -HIV and hep screen NR PLAN -Started 7 + 3 09/06/23 , D12 today -Daily CBC w/diff, CMP -follow-up on myeloid mutation panel -on medroxyprogesterone 10 mg QD for menstrual bleeding as thrombocytopenia, continue for duration of chemo -On levaquin, posaconazole and valtrex for OI prophylaxis -Dr Stafford will be primary -Daily weights -will obtain bone marrow on 09/19/2023-day 14 bone marrow - Transfusion goals plts > 10 K, Hb >7.0, Fibronogen > 100. Please give both leukoreduced and irratiated blood if needed Thank you for the opportunity to participate in the care of this patient. Hem/Onc consult service will continue to follow closely. Please don't hesitate to contact hem/onc consult fellow via the warping mill operator or AMION if any questions or clarifications. Rajesh Becerril DO Internal Medicine, PGY-3 ST REPRESENTATIVE Associated attestation - Abrahan Rivera MD - 09/17/2023 7:20 PM ARTIST REPRESENTATIVE I have seen and examined the patient with the resident. I agree with the findings and plan of care as documented by the resident. Date of resident's note: 09/17/2023 Date of service: 09/17/2023 Abrahan Rivera MD * Sheron Weber RN - 09/16/2023 9:29 PM CST Problem: Infection Goal: Signs and symptoms of infections are decreased or avoided Outcome: Progressing Problem: Pain/Discomfort Goal: Patient exhibits reduced pain/discomfort as evidenced by pain scores Outcome: Progressing ST REPRESENTATIVE * Myah Roberts DO - 09/16/2023 11:23 AM CST Internal Medicine Progress Note 09/16/2023 @ 11:23 AM Admit Date: 09/03/2023 - Length of Stay 13 Day(s) Subjective: 09/10: Given [place] paperwork this AM; told that if there are issues to not hesitate to ask either medicine or oncology teams for assistance 09/11: NAEON. Notes slowly improving swelling. Continues diuresis w/ ~2L Uop thus far today. ANC 100, Hgb, plts trending down. Allopurinol and IVF DC'd. AC checks started, thus far not needing insulin. 09/12: NAEON. Some diarrhea starting this AM. Again notes improved swelling. SO at bedside and asked about nutrition. ANC 80, Hgb 7, plts 16. Improved BG, LFTs. 09/13: NAEON. Seen walking around in [place]. Diarrhea and fatigue, otherwise neg ROS. Labs stable. Did not require transfusion overnight. 09/14: NAEON. In bed this AM. Feels fatigue, but not ill. Labs borderline but not requiring trasfusions at this time. BG normal, will DC AC. 09/15: Overnight abdominal pain, b/l upper quadrants w/ radiation to front of stomach. KUB unremarkable. Still having diarrhea, c diff pending. Pain better this AM. Does endorse belching and reflux like symptoms. Has simethicone, pepcid. Add bentyl prn. 09/16: NAEON. Upright in chair. Abdominal pain better. Feels fatigued. Still with appetite. Improved labs post transfusion, Hgb 8.3, plt 20, ANC 10 Objective: Temp: [97.8 ??F (36.6 ??C)-98.7 ??F (37.1 ??C)] 97.8 ??F (36.6 ??C) Pulse: [98-112] 101 Resp: [14-18] 18 BP: (112-142)/(67-105) 120/83 O2 %: [21 %] 21 % Physical Exam General: NAD. Resting, appears comfortable HENT: NC/AT Eyes: Anicteric. Non-injected. Chest: No increased work of breathing. Barone at right chest. Cardiovascular: tachy rate Extremities: BLE edema, pitting present -- improving Neurological: Alert; conversational and follows commands. Moves all extremities spontaneously without issue. No focal deficits. Psych: Appropriate mood and affect Data reviewed including pertinent labs, imaging, diagnostics. 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) Pancytopenia (CMS-HCC) Tonsillitis #AML #Pancytopenia - BMB from OSH noting large proportion of blasts; final report noting AML - Repeat BMB today to ensure appropriate collection of all testing required prior to treatment - s/p Barone placement to begin chemo - TTE (09/05) unremarkable PLAN: - D11 induction with 7 + 3 - DC allopurinol - Continue OI ppx: Levofloxacin, Posaconazole, Valacyclovir - medroxyprogesterone 10 in setting of thrombocytopenia and menstrual bleeding - Daily labs: CBC??w/diff, CMP, Uric Acid, - Transfuse for plts > 10 K, Hb >7.0, Fibronogen > 100 - Holding IVF given swelling #Abdominal Pain -- improved #Diarrhea DDx: Reflux vs. cramping given poor absorption and diarrhea -KUB unremarkable - Sxs relief: prn pepcid, simethicone, bentyl #Tonsillitis - Noted at OSH and started on abx; continued on Augmentin at [facility] which was completed - Continue to monitor #Disposition - Per H/O team. Requires multiple weeks inpatient. Nutrition: Regular diet DVT Prophylaxis: SCDs Code: Full Dispo: Above The best way to reach me is through Secure Chat. Myah Roberts DO 09/16/[address]23 ST REPRESENTATIVE * Anita Rios MD - 09/16/2023 8:02 AM CST Images from the original note were not included. HEMATOLOGY/ONCOLOGY INPATIENT PROGRESS NOTE Name: Selvin Mckeon Age: [age] year old Date of : 1985 Date of Service: 09/16/2023 Reason for Consult: AML HEMATOLOGY & ONCOLOGY HISTORY Principal Diagnosis: AML Current Therapy: 7+ 3 Prior Hematology/Oncology History: None SUBJECTIVE History of Present Illness Chief Complaint: Fatigue, flu like symptoms History of Present Illness: Selvin Mckeon is a 38 year old female with no PMH who presented to [facility] presenting with fevers and flu like symptoms, initially thought to have tonsillitis seen on CT face?. Was treated with vanc cefepime and then CTX but had persistent pancytopenia so bone marrow biopsy was done whichshowed 78% blast on the bone marrow flow cytometry. Pt was transferred for concern for AML Formal bone marrow report still pending from [facility] - Lives alone with daughter ( 11 y old) who is currently staying with her dad No PMH of cancers , is adopted so not sure about FH No drugs or smoking or alcohol use Interval hx D11 7+3 No acute overnight events. Appears to be in good spirits. With no active complaints. Review of Systems: As noted in HPI. All other systems reviewed and negative. Past Medical & Surgical History Patient Active Problem List Diagnosis ??? Pancytopenia (CMS-HCC) ??? Tonsillitis ??? 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 NEGATIVE PAST MEDICAL HISTORY - SEE PROBLEM LIST Past Surgical History: Procedure Laterality Date ??? Section ??? Cholecystectomy ??? KIDNEY STONES, REMOVAL Social History Social History Tobacco Use ??? Smoking status: Former Packs/day: 1 Types: Cigarettes Start date: 2004 Quit date: 2010 Years since quittin.0 ??? Smokeless tobacco: Never Substance Use Topics ??? Alcohol use: Yes Comment: occasional Family History Family History Family history unknown: Yes Medications SCHEDULED MEDICATIONS: 0.9% NaCl injection 3 mL, Intracatheter, q8h famotidine (Pepcid) tablet 20 mg, Oral, BID levoFLOXacin (Levaquin) tablet 500 mg, Oral, QDAY medroxyPROGESTERone (Provera) tablet 10 mg, Oral, QDAY oxymetazoline (Afrin) 0.05 % nasal spray 2 spray, Each Nostril, BID perflutren lipid microsphere (Definity) injection 0.5 mL, Intravenous, intra- Procedure multiple posaconazole (Noxafil) tablet 300 mg, Oral, QDAY WITH DINNER potassium chloride ER (Klor-Con M) tablet 20 mEq, Oral, QDAY WITH BREAKFAST valACYclovir (Valtrex) tablet 500 mg, Oral, BID CONTINUOUS MEDICATIONS: PRN MEDICATIONS: 0.9% NaCl injection 1-10 mL, Intracatheter, PRN acetaminophen (Tylenol) tablet 650 mg, Oral, q6h PRN dicyclomine (Bentyl) tablet 20 mg, Oral, TID PRN heparin lock flush injection 500 Units, Intracatheter, PRN LORazepam (Ativan) injection 1 mg, Intravenous, q8h PRN LORazepam (Ativan) tablet 1 mg, Oral, q8h PRN melatonin tablet 3 mg, Oral, AT BEDTIME PRN ondansetron (disintegrating) (Zofran ODT) tablet 8 mg, Oral, BID PRN ondansetron (Zofran) injection 8 mg, Intravenous, BID PRN prochlorperazine (Compazine) injection 5 mg, Intravenous, q4h PRN prochlorperazine (Compazine) tablet 10 mg, Oral, q4h PRN simethicone (Mylicon) chew tablet 80 mg, Oral, 4X/day PRN Allergies No Known Allergies OBJECTIVE Physical Exam Vitals: 09/16/23 0054 09/16/23 0417 09/16/23 0805 09/16/23 1125 BP: 112/67 120/83 140/87 Pulse: 98 101 (!) 113 Resp: 14 18 18 Temp: 98.6 ??F (37 ??C) 97.8 ??F (36.6 ??C) 97.5 ??F (36.4 ??C) SpO2: 95% 100% 100% Weight: 116.5 kg (256 lb 12.8 oz) Height: Wt Readings from Last 3 Encounters: 09/16/23 116.5 kg (256 lb 12.8 oz) ECO General: Well-developed . No acute distress. Heart: Normal S1, S2. Regular rate and rhythm. Lungs: Symmetric breath sounds. Clear to auscultation. Nonlabored respirations. Abdomen: Soft, nontender, nondistended. Bowel sounds present. Extremities: No clubbing or edema. Skin: Warm, dry. No rash. Psychiatric: Cooperative. Appropriate mood and affect. Laboratory Results Recent Labs Component Name 09/15/23203909/14/[id number]/13/[id number]/12/[id number]/11/[id number]/07/[id number]/06/232142 WBC 0.5* 0.5* 0.5* 0.5* 0.5* - 0.6* RBC 2.60* 2.14* 2.28* 2.17* 2.16* - 2.45* HGB 8.3* 6.8* 7.4* 7.0* 7.0* - 7.9* HCT 22.4* 18.9* 20.0* 19.2* 19.3* - 22.0* MCV 86.2 88.3 87.7 88.5 89.4 - 89.8 MCHC 37.1* 36.0 37.0* 36.5* 36.3 - 35.9 PLTCOUNT 20* 6* 11* 13* 16* - 23* NEUTABS 0.01* - 0.05* 0.06* 0.02* 0.08* 0.08* - 0.20* 0.18* LYMPHABS - - - 0.48* 0.40* - 0.37* - = values in this interval not displayed. Recent Labs Component Name 09/15/23203909/14/23214909/13/[id number]/09/[id number]/08/[id number]/06/23 0026 09/05/23 0909 09/04/23 0527 POTASSIUM 3.9 3.9 3.7 - 3.9 - 4.1 3.7 CO2 24 23 22 - 20* - 26 27 BUN 9 12 10 - 14 - 9 8 CREATININE 0.66 0.62 0.66 - 0.75 - 0.74 0.70 EGFR >90 >90 >90 - >90 - >90 >90 GLUCOSE 124* 191* 135* - 266* - 95 89 CALCIUM 8.8 8.5 8.4 - 8.4 - 9.1 8.7 MAGNESIUM - 1.9 - - 2.1 - 2.3 2.2 PHOS - 2.9 - - 1.9* - - 4.3 ALT 36 34 40 - 66* - 38 24 AST 16 11 15 - 62* - 38* 25 ALKPHOS 55 57 55 - 56 - 62 58 - = values in this interval not displayed. Pathology Results Personally reviewed and summarized above in Hematology & Oncology History RESULT Normal FISH Result inv(3) or t(3;3) RPN1::MECOM Fusion: not detected Deletion 5q: not detected Monosomy 7: not detected Deletion 7q: not detected t(8;21) RUNX1::[id number] Fusion: not detected 11p15 (NUP98) Rearrangement: not detected 11q23 (KMT2A) Rearrangement: not detected inv(16) or t(16;16) CBFB::MYH11 Fusion: not detected INTERPRETATION There was no evidence of RPN1::MECOM fusion due to 3q21/3q26.2 inversion or translocation, deletion 5q31, monosomy 7, deletion 7q31, RUNX1::[id number] fusion due to translocation (8;21)(q21.3;q22), 11p15 (NUP98) [...] flow cytometry () shows acute myeloid leukemia. 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 FISH normal -ECHO 59% EF -FISH AML panel WNL ,Normal karyotype -HIV and hep screen NR PLAN - Started 7 + 3 09/06/23 , D11 today - Daily CBC w/diff, CMP -HIV and hep screen NR -follow-up on myeloid mutation panel - on medroxyprogesterone 10 mg QD for menstrual bleeding as thrombocytopenia, continue for durationof chemo -On levaquin, posaconazole and valtrex for OI prophylaxis -Recommend SSI given higher blood sugars while on dex with chemo - Transfusion goals plts > 10 K, Hb >7.0, Fibronogen > 100. Please give both leukoreduced and irratiated blood if needed -Dr Stafford will be primary -Daily weights -will obtain bone marrow on 09/19/2023-day 14 bone marrow Thank you for the opportunity to participate in the care of this patient. Hem/Onc consult service will continue to follow closely. Please don't hesitate to contact hem/onc consult fellow via the warping mill operator or AMION if any questions or clarifications. Anita Rios MD Hematology Oncology Fellow PGY4 [facility] ST REPRESENTATIVE Associated attestation - Abrahan Rivera MD - 09/16/2023 6:32 PM ARTIST REPRESENTATIVE I have seen and examined the patient with the fellow. I agree with the findings and plan of care asdocumented by the fellow. Date of fellow's note: 09/16/2023 Date of service: 09/16/2023 Abrahan Rivera MD * Beverly Bruce - 09/16/2023 3:06 AM CST Problem: Infection Goal: Signs and symptoms of infections are decreased or avoided Outcome: Progressing Problem: Pain/Discomfort Goal: Patient exhibits reduced pain/discomfort as evidenced by pain scores Outcome: Progressing Problem: Fall Risk Goal: Fall risk and fall related injury risk are minimized (interventions related to the fall risk can be found in the flowsheet documentation) Outcome: Progressing Problem: Hemodynamic Status/Cardiac Output Goal: Patient has stable vital signs and fluid balance Outcome: Progressing ST REPRESENTATIVE * Ngozi Maharaj - 09/15/2023 12:00 PM CST Problem: Infection Goal: Signs and symptoms of infections are decreased or avoided Outcome: Progressing Problem: Pain/Discomfort Goal: Patient exhibits reduced pain/discomfort as evidenced by pain scores Outcome: Progressing Problem: Fall Risk Goal: Fall risk and fall related injury risk are minimized (interventions related to the fall risk can be found in the flowsheet documentation) Outcome: Progressing Problem: Hemodynamic Status/Cardiac Output Goal: Patient has stable vital signs and fluid balance Outcome: Progressing ST REPRESENTATIVE * Myah Roberts DO - 09/15/2023 10:40 AM CST Internal Medicine Progress Note 09/15/2023 @ 10:40 AM Admit Date: 09/03/2023 - Length of Stay 12 Day(s) Subjective: 09/10: Given [facility] paperwork this AM; told that if there are issues to not hesitate to ask either medicine or oncology teams for assistance 09/11: NAEON. Notes slowly improving swelling. Continues diuresis w/ ~2L Uop thus far today. ANC 100, Hgb, plts trending down. Allopurinol and IVF DC'd. AC checks started, thus far not needing insulin. 09/12: NAEON. Some diarrhea starting this AM. Again notes improved swelling. SO at bedside and asked about nutrition. ANC 80, Hgb 7, plts 16. Improved BG, LFTs. 09/13: NAEON. Seen walking around in [place]. Diarrhea and fatigue, otherwise neg ROS. Labs stable. Did not require transfusion overnight. 09/14: NAEON. In bed this AM. Feels fatigue, but not ill. Labs borderline but not requiring trasfusions at this time. BG normal, will DC AC. 09/15: Overnight abdominal pain, b/l upper quadrants w/ radiation to front of stomach. KUB unremarkable. Still having diarrhea, c diff pending. Pain better this AM. Does endorse belching and reflux like symptoms. Has simethicone, pepcid. Add bentyl prn. Objective: Temp: [98.3 ??F (36.8 ??C)-99 ??F (37.2 ??C)] 98.7 ??F (37.1 ??C) Pulse: [81-104] 81 Resp: [16-28] 18 BP: (112-148)/(69-90) 118/78 Physical Exam General: NAD. Resting, appears mildly uncomfortable. HENT: NC/AT Eyes: Anicteric. Non-injected. Chest: No increased work of breathing. Barone at right chest. Cardiovascular: Reg rate Abdominal: mild bloating, but soft and no TTP Extremities: BLE edema, pitting present -- improving Neurological: Alert; conversational and follows commands. Moves all extremities spontaneously without issue. No focal deficits. Psych: Appropriate mood and affect Data reviewed including pertinent labs, imaging, diagnostics. 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) Pancytopenia (CMS-HCC) Tonsillitis #AML #Pancytopenia - BMB from OSH noting large proportion of blasts; final report noting AML - Repeat BMB today to ensure appropriate collection of all testing required prior to treatment - s/p Barone placement to begin chemo - TTE (09/05) unremarkable PLAN: - D9 induction with 7 + 3 - DC allopurinol - Continue OI ppx: Levofloxacin, Posaconazole, Valacyclovir - medroxyprogesterone 10 in setting of thrombocytopenia and menstrual bleeding - Daily labs: CBC??w/diff, CMP, Uric Acid, - Transfuse for plts > 10 K, Hb >7.0, Fibronogen > 100 - Holding IVF given swelling #Abdominal Pain #Diarrhea DDx: Reflux vs. cramping given poor absorption and diarrhea -KUB unremarkable - Sxs relief: prn pepcid, simethicone, bentyl #Tonsillitis - Noted at OSH and started on abx; continued on Augmentin at [facility] which was completed - Continue to monitor #Disposition - Per H/O team. Requires multiple weeks inpatient. Nutrition: Regular diet DVT Prophylaxis: SCDs Code: Full Dispo: Above The best way to reach me is through Secure Chat. Myah Roberts DO 09/15/[address]23 ST REPRESENTATIVE * Anita Rios MD - 09/15/2023 8:10 AM CST Images from the original note were not included. HEMATOLOGY/ONCOLOGY INPATIENT PROGRESS NOTE Name: Selvin Mckeon Age: [age] year old Date of : 1985 Date of Service: 09/15/2023 Reason for Consult: AML HEMATOLOGY & ONCOLOGY HISTORY Principal Diagnosis: AML Current Therapy: 7+ 3 Prior Hematology/Oncology History: None SUBJECTIVE History of Present Illness Chief Complaint: Fatigue, flu like symptoms History of Present Illness: Selvin Mckeon is a 38 year old female with no PMH who presented to [facility] presenting with fevers and flu like symptoms, initially thought to have tonsillitis seen on CT face?. Was treated with vanc cefepime and then CTX but had persistent pancytopenia so bone marrow biopsy was done whichshowed 78% blast on the bone marrow flow cytometry. Pt was transferred for concern for AML Formal bone marrow report still pending from [facility]SH [facility] - Lives alone with daughter ( 11 y old) who is currently staying with her dad No PMH of cancers , is adopted so not sure about FH No drugs or smoking or alcohol use Interval hx Patient received 1 unit of blood and 1 unit platelet transfusion for hemoglobin level 6.8 and platelet count 6k respectively. However after transfusion she reports having abdominal bloating and pain.Abdominal x-ray was done which demonstrated no acute pathology based on preliminary read. As of this morning patient feels well much better better last night. Denies any chest pain, shortness of breath, rash. Review of Systems: As noted in HPI. All other systems reviewed and negative. Past Medical & Surgical History Patient Active Problem List Diagnosis ??? Pancytopenia (CMS-HCC) ??? Tonsillitis ??? 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 NEGATIVE PAST MEDICAL HISTORY - SEE PROBLEM LIST Past Surgical History: Procedure Laterality Date ??? Section ??? Cholecystectomy ??? KIDNEY STONES, REMOVAL Social History Social History Tobacco Use ??? Smoking status: Former Packs/day: 1 Types: Cigarettes Start date: 2004 Quit date: 2010 Years since quittin.0 ??? Smokeless tobacco: Never Substance Use Topics ??? Alcohol use: Yes Comment: occasional Family History Family History Family history unknown: Yes Medications SCHEDULED MEDICATIONS: 0.9% NaCl injection 3 mL, Intracatheter, q8h famotidine (Pepcid) tablet 20 mg, Oral, BID levoFLOXacin (Levaquin) tablet 500 mg, Oral, QDAY medroxyPROGESTERone (Provera) tablet 10 mg, Oral, QDAY perflutren lipid microsphere (Definity) injection 0.5 mL, Intravenous, intra- Procedure multiple posaconazole (Noxafil) tablet 300 mg, Oral, QDAY WITH DINNER potassium chloride ER (Klor-Con M) tablet 20 mEq, Oral, QDAY WITH BREAKFAST valACYclovir (Valtrex) tablet 500 mg, Oral, BID CONTINUOUS MEDICATIONS: PRN MEDICATIONS: 0.9% NaCl infusion rate and volume, Intravenous, Once PRN 0.9% NaCl infusion rate and volume, Intravenous, Once PRN 0.9% NaCl injection 1-10 mL, Intracatheter, PRN acetaminophen (Tylenol) tablet 650 mg, Oral, q6h PRN dicyclomine (Bentyl) tablet 20 mg, Oral, TID PRN furosemide (Lasix) injection 20 mg, Intravenous, QDAY PRN LORazepam (Ativan) injection 1 mg, Intravenous, q8h PRN LORazepam (Ativan) tablet 1 mg, Oral, q8h PRN melatonin tablet 3 mg, Oral, AT BEDTIME PRN ondansetron (disintegrating) (Zofran ODT) tablet 8 mg, Oral, BID PRN ondansetron (Zofran) injection 8 mg, Intravenous, BID PRN prochlorperazine (Compazine) injection 5 mg, Intravenous, q4h PRN prochlorperazine (Compazine) tablet 10 mg, Oral, q4h PRN simethicone (Mylicon) chew tablet 80 mg, Oral, 4X/day PRN Allergies No Known Allergies OBJECTIVE Physical Exam Vitals: 09/15/23 0109 09/15/23 0353 09/15/23 0456 09/15/23 0756 BP: 117/74 112/71 117/69 118/78 Pulse: 89 104 83 81 Resp: 16 18 28 18 Temp: 98.3 ??F (36.8 ??C) 99 ??F (37.2 ??C) 98.6 ??F (37 ??C) 98.7 ??F (37.1 ??C) SpO2: 100% 100% 100% 99% Weight: 118.9 kg (262 lb 3.2 oz) Height: Wt Readings from Last 3 Encounters: 09/15/23 118.9 kg (262 lb 3.2 oz) ECO General: Well-developed . No acute distress. Heart: Normal S1, S2. Regular rate and rhythm. Lungs: Symmetric breath sounds. Clear to auscultation. Nonlabored respirations. Abdomen: Soft, nontender, nondistended. Bowel sounds present. Extremities: No clubbing or edema. Skin: Warm, dry. No rash. Psychiatric: Cooperative. Appropriate mood and affect. Laboratory Results Recent Labs Component Name 09/14/23214909/13/23205109/12/23204509/11/23200109/07/[id number]/06/232142 WBC 0.5* 0.5* 0.5* 0.5* - 0.6* RBC 2.14* 2.28* 2.17* 2.16* - 2.45* HGB 6.8* 7.4* 7.0* 7.0* - 7.9* HCT 18.9* 20.0* 19.2* 19.3* - 22.0* MCV 88.3 87.7 88.5 89.4 - 89.8 MCHC 36.0 37.0* 36.5* 36.3 - 35.9 PLTCOUNT 6* 11* 13* 16* - 23* NEUTABS - 0.05* 0.06* 0.02* 0.08* 0.08* - 0.20* 0.18* LYMPHABS - - 0.48* 0.40* - 0.37* - = values in this interval not displayed. Recent Labs Component Name 09/14/23214909/13/23205109/12/23204509/09/[id number]/08/23205409/06/23 0026 09/05/23 0909 09/04/23 0527 POTASSIUM 3.9 3.7 3.4* - 3.9 - 4.1 3.7 CO2 23 22 24 - 20* - 26 27 BUN 12 10 12 - 14 - 9 8 CREATININE 0.62 0.66 0.66 - 0.75 - 0.74 0.70 EGFR >90 >90 >90 - >90 - >90 >90 GLUCOSE 191* 135* 119* - 266* - 95 89 CALCIUM 8.5 8.4 8.0* - 8.4 - 9.1 8.7 MAGNESIUM 1.9 - - - 2.1 - 2.3 2.2 PHOS 2.9 - - - 1.9* - - 4.3 ALT 34 40 47 - 66* - 38 24 AST 11 15 19 - 62* - 38* 25 ALKPHOS 57 55 46 - 56 - 62 58 - = values in this interval not displayed. Pathology Results Personally reviewed and summarized above in Hematology & Oncology History RESULT Normal FISH Result inv(3) or t(3;3) RPN1::MECOM Fusion: not detected Deletion 5q: not detected Monosomy 7: not detected Deletion 7q: not detected t(8;21) [id number] Fusion: not detected 11p15 (NUP98) Rearrangement: not detected 11q23 (KMT2A) Rearrangement: not detected inv(16) or t(16;16) CBFB::MYH11 Fusion: not detected INTERPRETATION There was no evidence of RPN1::MECOM fusion due to 3q21/3q26.2 inversion or translocation, deletion 5q31, monosomy 7, deletion 7q31, RUNX1::[id number] fusion due to translocation (8;21)(q21.3;q22), 11p15 (NUP98) [...] flow cytometry () shows acute myeloid leukemia. 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 FISH normal -ECHO 59% EF -FISH AML panel WNL ,Normal karyotype -HIV and hep screen NR PLAN - Started 7 + 3 09/06/23 , D10 today - Daily CBC w/diff, CMP -HIV and hep screen NR -follow-up on myeloid mutation panel - on medroxyprogesterone 10 mg QD for menstrual bleeding as thrombocytopenia, continue for durationof chemo -Unclear as to why CBC with differential not being reported will call lab to verify -On levaquin, posaconazole and valtrex for OI prophylaxis -Recommend SSI given higher blood sugars while on dex with chemo - Transfusion goals plts > 10 K, Hb >7.0, Fibronogen > 100. Please give both leukoreduced and irratiated blood if needed -Dr Stafford will be primary - Daily weights Thank you for the opportunity to participate in the care of this patient. Hem/Onc consult service will continue to follow closely. Please don't hesitate to contact hem/onc consult fellow via the warping mill operator or AMION if any questions or clarifications. Anita Rios MD Hematology Oncology Fellow PGY4 [facility] ST REPRESENTATIVE Associated attestation - Abrahan Rivera MD - 09/15/2023 9:58 PM ARTIST REPRESENTATIVE I have seen and examined the patient with the fellow. I agree with the findings and plan of care asdocumented by the fellow. Date of fellow's note: 09/15/2023 Date of service: 09/15/2023 Abrahan Rivera MD * Queta Moreno RN - 09/15/2023 1:20 AM CST Problem: Infection Goal: Signs and symptoms of infections are decreased or avoided Outcome: Progressing Problem: Pain/Discomfort Goal: Patient exhibits reduced pain/discomfort as evidenced by pain scores Outcome: Progressing Problem: Fall Risk Goal: Fall risk and fall related injury risk are minimized (interventions related to the fall risk can be found in the flowsheet documentation) Outcome: Progressing Problem: Hemodynamic Status/Cardiac Output Goal: Patient has stable vital signs and fluid balance Outcome: Progressing ST REPRESENTATIVE * Chandu Padgett RN - 09/14/2023 1:35 PM CST Problem: Infection Goal: Signs and symptoms of infections are decreased or avoided Outcome: Progressing Problem: Pain/Discomfort Goal: Patient exhibits reduced pain/discomfort as evidenced by pain scores Outcome: Progressing Problem: Fall Risk Goal: Fall risk and fall related injury risk are minimized (interventions related to the fall risk can be found in the flowsheet documentation) Outcome: Progressing ST REPRESENTATIVE * Myah Roberts DO - 09/14/2023 10:37 AM CST Internal Medicine Progress Note 09/14/2023 @ 10:37 AM Admit Date: 09/03/2023 - Length of Stay 11 Day(s) Subjective: 09/10: Given [place] paperwork this AM; told that if there are issues to not hesitate to ask either medicine or oncology teams for assistance 09/11: NAEON. Notes slowly improving swelling. Continues diuresis w/ ~2L Uop thus far today. ANC 100, Hgb, plts trending down. Allopurinol and IVF DC'd. AC checks started, thus far not needing insulin. 09/12: NAEON. Some diarrhea starting this AM. Again notes improved swelling. SO at bedside and asked about nutrition. ANC 80, Hgb 7, plts 16. Improved BG, LFTs. 09/13: NAEON. Seen walking around in [place]. Diarrhea and fatigue, otherwise neg ROS. Labs stable. Did not require transfusion overnight. 09/14: NAEON. In bed this AM. Feels fatigue, but not ill. Labs borderline but not requiring trasfusions at this time. BG normal, will DC AC. Objective: Temp: [98.3 ??F (36.8 ??C)-99.1 ??F (37.3 ??C)] 98.5 ??F (36.9 ??C) Pulse: [89-108] 104 Resp: [16-19] 16 BP: (113-134)/(60-82) 125/69 Physical Exam General: NAD. Resting comfortably HENT: NC/AT Eyes: Anicteric. Non-injected. Chest: No increased work of breathing. Barone at right chest. Cardiovascular: Reg rate Extremities: BLE edema, pitting present -- improving Neurological: Alert; conversational and follows commands. Moves all extremities spontaneously without issue. No focal deficits. Psych: Appropriate mood and affect Data reviewed including pertinent labs, imaging, diagnostics. 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 ([facility]-HCC) Pancytopenia ([facility]-HCC) Tonsillitis #AML #Pancytopenia - BMB from OSH noting large proportion of blasts; final report noting AML - Repeat BMB today to ensure appropriate collection of all testing required prior to treatment - s/p Barone placement to begin chemo - TTE (09/05) unremarkable PLAN: - D9 induction with 7 + 3 - DC allopurinol - Continue OI ppx: Levofloxacin, Posaconazole, Valacyclovir - medroxyprogesterone 10 in setting of thrombocytopenia and menstrual bleeding - Daily labs: CBC??w/diff, CMP, Uric Acid, - Transfuse for plts > 10 K, Hb >7.0, Fibronogen > 100 - Holding IVF given swelling #Tonsillitis - Noted at OSH and started on abx; continued on Augmentin at [facility] which was completed - Continue to monitor #Disposition - Per H/O team. Requires multiple weeks inpatient. Nutrition: Regular diet DVT Prophylaxis: SCDs Code: Full Dispo: Above The best way to reach me is through Secure Chat. Myah Roberts DO 09/14/2023 ST REPRESENTATIVE * Anita Rios MD - 09/14/2023 8:23 AM CST Images from the original note were not included. HEMATOLOGY/ONCOLOGY INPATIENT PROGRESS NOTE Name: Selvin Mckeon Age: [id number] year old Date of : 1985 Date of Service: 09/14/2023 Reason for Consult: AML HEMATOLOGY & ONCOLOGY HISTORY Principal Diagnosis: AML Current Therapy: 7+ 3 Prior Hematology/Oncology History: None SUBJECTIVE History of Present Illness Chief Complaint: Fatigue, flu like symptoms History of Present Illness: Selvin Mckeon is a 38 year old female with no PMH who presented to [facility] presenting with fevers and flu like symptoms, initially thought to have tonsillitis seen on CT face?. Was treated with vanc cefepime and then CTX but had persistent pancytopenia so bone marrow biopsy was done whichshowed 78% blast on the bone marrow flow cytometry. Pt was transferred for concern for AML Formal bone marrow report still pending from [facility] - Lives alone with daughter ( 11 y old) who is currently staying with her dad No PMH of cancers , is adopted so not sure about FH No drugs or smoking or alcohol use Interval hx D9 7+3 No acute overnight events. Endorses mild fatigue. Review of Systems: As noted in HPI. All other systems reviewed and negative. Past Medical & Surgical History Patient Active Problem List Diagnosis ??? Pancytopenia (CMS-HCC) ??? Tonsillitis ??? 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 NEGATIVE PAST MEDICAL HISTORY - SEE PROBLEM LIST Past Surgical History: Procedure Laterality Date ??? Section ??? Cholecystectomy ??? KIDNEY STONES, REMOVAL Social History Social History Tobacco Use ??? Smoking status: Former Packs/day: 1 Types: Cigarettes Start date: 2004 Quit date: 2010 Years since quittin.0 ??? Smokeless tobacco: Never Substance Use Topics ??? Alcohol use: Yes Comment: occasional Family History Family History Family history unknown: Yes Medications SCHEDULED MEDICATIONS: 0.9% NaCl injection 3 mL, Intracatheter, q8h famotidine (Pepcid) tablet 20 mg, Oral, BID levoFLOXacin (Levaquin) tablet 500 mg, Oral, QDAY medroxyPROGESTERone (Provera) tablet 10 mg, Oral, QDAY perflutren lipid microsphere (Definity) injection 0.5 mL, Intravenous, intra- Procedure multiple posaconazole (Noxafil) tablet 300 mg, Oral, QDAY WITH DINNER potassium chloride ER (Klor-Con M) tablet 20 mEq, Oral, QDAY WITH BREAKFAST valACYclovir (Valtrex) tablet 500 mg, Oral, BID [COMPLETED] cytarabine (Cytosar) 460 mg in 0.9% NaCl IV 534.6 mL infusion, Intravenous, Once CONTINUOUS MEDICATIONS: PRN MEDICATIONS: Or Or Or Or 0.9% NaCl injection 1-10 mL, Intracatheter, PRN acetaminophen (Tylenol) tablet 650 mg, Oral, q6h PRN dextrose 10 % IV bolus, Intravenous, PRN dextrose 10 % IV bolus, Intravenous, PRN furosemide (Lasix) injection 20 mg, Intravenous, QDAY PRN glucagon (Glucagen) injection 1 mg, Subcutaneous, PRN glucose (Diabetic Use) (Dex4 Glucose) oral liquid, Oral, PRN glucose (Diabetic Use) oral gel, Oral, PRN glucose chew tablet 4 tablet, Oral, PRN LORazepam (Ativan) injection 1 mg, Intravenous, q8h PRN LORazepam (Ativan) tablet 1 mg, Oral, q8h PRN melatonin tablet 3 mg, Oral, AT BEDTIME PRN ondansetron (disintegrating) (Zofran ODT) tablet 8 mg, Oral, BID PRN ondansetron (Zofran) injection 8 mg, Intravenous, BID PRN prochlorperazine (Compazine) injection 5 mg, Intravenous, q4h PRN prochlorperazine (Compazine) tablet 10 mg, Oral, q4h PRN Allergies No Known Allergies OBJECTIVE Physical Exam Vitals: 09/13/23203609/13/237 09/14/23 0618 09/14/23 0853 BP: 128/82 113/60 119/64 125/69 Pulse: 98 90 103 104 Resp: 19 16 Temp: 98.4 ??F (36.9 ??C) 98.6 ??F (37 ??C) 99.1 ??F (37.3 ??C) 98.5 ??F (36.9 ??C) SpO2: 100% 96% 97% 100% Weight: 120.1 kg (264 lb 12.8 oz) Height: 1.575 m (5' 2 ) Wt Readings from Last 3 Encounters: 09/14/23 120.1 kg (264 lb 12.8 oz) ECO General: Well-developed . No acute distress. Heart: Normal S1, S2. Regular rate and rhythm. Lungs: Symmetric breath sounds. Clear to auscultation. Nonlabored respirations. Abdomen: Soft, nontender, nondistended. Bowel sounds present. Extremities: No clubbing or edema. Skin: Warm, dry. No rash. Psychiatric: Cooperative. Appropriate mood and affect. Laboratory Results Recent Labs Component Name 09/13/23205109/12/23204509/11/23200109/07/23200709/06/232142 WBC 0.5* 0.5* 0.5* - 0.6* RBC 2.28* 2.17* 2.16* - 2.45* HGB 7.4* 7.0* 7.0* - 7.9* HCT 20.0* 19.2* 19.3* - 22.0* MCV 87.7 88.5 89.4 - 89.8 MCHC 37.0* 36.5* 36.3 - 35.9 PLTCOUNT 11* 13* 16* - 23* NEUTABS 0.05* 0.06* 0.02* 0.08* 0.08* - 0.20* 0.18* LYMPHABS - 0.48* 0.40* - 0.37* - = values in this interval not displayed. Recent Labs Component Name 09/13/23205109/12/23204509/11/23200109/09/23213709/08/23205409/06/23 0026 09/05/23 0909 09/04/23 0527 POTASSIUM 3.7 3.4* 3.6 - 3.9 - 4.1 3.7 CO2 22 24 24 - 20* - 26 27 BUN 10 12 13 - 14 - 9 8 CREATININE 0.66 0.66 0.69 - 0.75 - 0.74 0.70 EGFR >90 >90 >90 - >90 - >90 >90 GLUCOSE 135* 119* 158* - 266* - 95 89 CALCIUM 8.4 8.0* 8.2* - 8.4 - 9.1 8.7 MAGNESIUM - - - - 2.1 - 2.3 2.2 PHOS - - - - 1.9* - - 4.3 ALT 40 47 57* - 66* - 38 24 AST 15 19 19 - 62* - 38* 25 ALKPHOS 55 46 44 - 56 - 62 58 - = values in this interval not displayed. Pathology Results Personally reviewed and summarized above in Hematology & Oncology History RESULT Normal FISH Result inv(3) or t(3;3) RPN1::MECOM Fusion: not detected Deletion 5q: not detected Monosomy 7: not detected Deletion 7q: not detected t(8;21) RUNX1::[id number] Fusion: not detected 11p15 (NUP98) Rearrangement: not detected 11q23 (KMT2A) Rearrangement: not detected inv(16) or t(16;16) CBFB::MYH11 Fusion: not detected INTERPRETATION There was no evidence of RPN1::MECOM fusion due to 3q21/3q26.2 inversion or translocation, deletion 5q31, monosomy 7, deletion 7q31, RUNX1::[id number] fusion due to translocation (8;21)(q21.3;q22), 11p15 (NUP98) [...] only. Flow Cytometry Summary Concurrent flow cytometry ([id number]) shows acute myeloid leukemia. 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 FISH normal -ECHO 59% EF -FISH AML panel WNL ,Normal karyotype -HIV and hep screen NR PLAN - Started 7 + 3 09/06/23 , D9 today - Daily CBC w/diff, CMP, DIC work up (D- Dimer, Fibrinogen and PT/PTT/INR) -HIV and hep screen NR -follow-up on myeloid mutation panel - on medroxyprogesterone 10 mg QD for menstrual bleeding as thrombocytopenia, continue for durationof chemo -On levaquin, posaconazole and valtrex for OI prophylaxis -Recommend SSI given higher blood sugars while on dex with chemo - Transfusion goals plts > 10 K, Hb >7.0, Fibronogen > 100. Please give both leukoreduced and irratiated blood if needed -Dr Stafford will be primary - Daily weights Thank you for the opportunity to participate in the care of this patient. Hem/Onc consult service will continue to follow closely. Please don't hesitate to contact hem/onc consult fellow via the warping mill operator or AMION if any questions or clarifications. Anita Rios MD Hematology Oncology Fellow PGY4 [facility] ST REPRESENTATIVE Associated attestation - Abrahan Rivera MD - 09/14/2023 8:26 PM ARTIST REPRESENTATIVE I have seen and examined the patient with the fellow. I agree with the findings and plan of care asdocumented by the fellow. Date of fellow's note: 09/14/2023 Date of service: 09/14/2023 Abrahan Rivera MD * Valentín Mckeon RN - 09/14/2023 3:32 AM CST Problem: Infection Goal: Signs and symptoms of infections are decreased or avoided Outcome: Progressing Problem: Pain/Discomfort Goal: Patient exhibits reduced pain/discomfort as evidenced by pain scores Outcome: Progressing Problem: Fall Risk Goal: Fall risk and fall related injury risk are minimized (interventions related to the fall risk can be found in the flowsheet documentation) Outcome: Progressing Problem: Hemodynamic Status/Cardiac Output Goal: Patient has stable vital signs and fluid balance Outcome: Progressing ST REPRESENTATIVE * Myah Roberts DO - 09/13/2023 2:43 PM CST Internal Medicine Progress Note 09/13/2023 @ 2:43 PM Admit Date: 09/03/2023 - Length of Stay 10 Day(s) Subjective: 09/10: Given [facility] paperwork this AM; told that if there are issues to not hesitate to ask either medicine or oncology teams for assistance 09/11: NAEON. Notes slowly improving swelling. Continues diuresis w/ ~2L Uop thus far today. ANC 100, Hgb, plts trending down. Allopurinol and IVF DC'd. AC checks started, thus far not needing insulin. 09/12: NAEON. Some diarrhea starting this AM. Again notes improved swelling. SO at bedside and asked about nutrition. ANC 80, Hgb 7, plts 16. Improved BG, LFTs. 09/13: NAEON. Seen walking around in [place]. Diarrhea and fatigue, otherwise neg ROS. Labs stable. Did not require transfusion overnight. Objective: Temp: [98 ??F (36.7 ??C)-98.7 ??F (37.1 ??C)] 98.3 ??F (36.8 ??C) Pulse: [51-108] 108 Resp: [18-19] 18 BP: (114-137)/(63-86) 134/76 Physical Exam General: NAD. Walking around comfortably. HENT: NC/AT Eyes: Anicteric. Non-injected. Chest: No increased work of breathing. Barone at right chest. Cardiovascular: Reg rate Extremities: BLE edema, pitting present -- improving Neurological: Alert; conversational and follows commands. Moves all extremities spontaneously without issue. No focal deficits. Psych: Appropriate mood and affect Data reviewed including pertinent labs, imaging, diagnostics. 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) Pancytopenia (CMS-HCC) Tonsillitis #AML #Pancytopenia - BMB from OSH noting large proportion of blasts; final report noting AML - Repeat BMB today to ensure appropriate collection of all testing required prior to treatment - s/p Barone placement to begin chemo - TTE (09/05) unremarkable PLAN: - D8 induction with 7 + 3 - DC allopurinol - Continue OI ppx: Levofloxacin, Posaconazole, Valacyclovir - DC medroxyprogesterone 10 in setting of thrombocytopenia and menstrual bleeding - Daily labs: CBC??w/diff, CMP, Uric Acid, DIC work up (D- Dimer, Fibrinogen and PT/PTT/INR), Hemolysis (LDH, Retics count, haptoglobin) - Transfuse for plts > 10 K, Hb >7.0, Fibronogen > 100 - Holding IVF given swelling #Tonsillitis - Noted at OSH and started on abx; continued on Augmentin at [facility] which was completed - Continue to monitor #Disposition - Per H/O team. Requires multiple weeks inpatient. Nutrition: Regular diet DVT Prophylaxis: SCDs Code: Full Dispo: Above The best way to reach me is through Secure Chat. Myah Roberts DO 09/13/[address]23 ST REPRESENTATIVE * Anita Rios MD - 09/13/2023 12:07 PM CST Images from the original note were not included. HEMATOLOGY/ONCOLOGY INPATIENT PROGRESS NOTE Name: Selvin Mckeon Age: [age] year old Date of : 1985 Date of Service: 09/14/2023 Reason for Consult: AML HEMATOLOGY & ONCOLOGY HISTORY Principal Diagnosis: AML Current Therapy: 7+ 3 Prior Hematology/Oncology History: None SUBJECTIVE History of Present Illness Chief Complaint: Fatigue, flu like symptoms History of Present Illness: Selvin Mckeon is a 38 year old female with no PMH who presented to [facility] presenting with fevers and flu like symptoms, initially thought to have tonsillitis seen on CT face?. Was treated with vanc cefepime and then CTX but had persistent pancytopenia so bone marrow biopsy was done whichshowed 78% blast on the bone marrow flow cytometry. Pt was transferred for concern for AML Formal bone marrow report still pending from [facility] - Lives alone with daughter ( 11 y old) who is currently staying with her dad No PMH of cancers , is adopted so not sure about FH No drugs or smoking or alcohol use Interval hx D8 7+3 No acute overnight events. Patient reports able to do work and keeping herself active , taking frequent walks on the 7th floor. Review of Systems: As noted in HPI. All other systems reviewed and negative. Past Medical & Surgical History Patient Active Problem List Diagnosis ??? Pancytopenia (CMS-HCC) ??? Tonsillitis ??? 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 NEGATIVE PAST MEDICAL HISTORY - SEE PROBLEM LIST Past Surgical History: Procedure Laterality Date ??? Section ??? Cholecystectomy ??? KIDNEY STONES, REMOVAL Social History Social History Tobacco Use ??? Smoking status: Former Packs/day: 1 Types: Cigarettes Start date: 2004 Quit date: 2010 Years since quittin.0 ??? Smokeless tobacco: Never Substance Use Topics ??? Alcohol use: Yes Comment: occasional Family History Family History Family history unknown: Yes Medications SCHEDULED MEDICATIONS: 0.9% NaCl injection 3 mL, Intracatheter, q8h famotidine (Pepcid) tablet 20 mg, Oral, BID levoFLOXacin (Levaquin) tablet 500 mg, Oral, QDAY medroxyPROGESTERone (Provera) tablet 10 mg, Oral, QDAY perflutren lipid microsphere (Definity) injection 0.5 mL, Intravenous, intra- Procedure multiple posaconazole (Noxafil) tablet 300 mg, Oral, QDAY WITH DINNER potassium chloride ER (Klor-Con M) tablet 20 mEq, Oral, QDAY WITH BREAKFAST valACYclovir (Valtrex) tablet 500 mg, Oral, BID [COMPLETED] cytarabine (Cytosar) 460 mg in 0.9% NaCl IV 534.6 mL infusion, Intravenous, Once CONTINUOUS MEDICATIONS: PRN MEDICATIONS: Or Or Or Or 0.9% NaCl injection 1-10 mL, Intracatheter, PRN acetaminophen (Tylenol) tablet 650 mg, Oral, q6h PRN dextrose 10 % IV bolus, Intravenous, PRN dextrose 10 % IV bolus, Intravenous, PRN furosemide (Lasix) injection 20 mg, Intravenous, QDAY PRN glucagon (Glucagen) injection 1 mg, Subcutaneous, PRN glucose (Diabetic Use) (Dex4 Glucose) oral liquid, Oral, PRN glucose (Diabetic Use) oral gel, Oral, PRN glucose chew tablet 4 tablet, Oral, PRN LORazepam (Ativan) injection 1 mg, Intravenous, q8h PRN LORazepam (Ativan) tablet 1 mg, Oral, q8h PRN melatonin tablet 3 mg, Oral, AT BEDTIME PRN ondansetron (disintegrating) (Zofran ODT) tablet 8 mg, Oral, BID PRN ondansetron (Zofran) injection 8 mg, Intravenous, BID PRN prochlorperazine (Compazine) injection 5 mg, Intravenous, q4h PRN prochlorperazine (Compazine) tablet 10 mg, Oral, q4h PRN Allergies No Known Allergies OBJECTIVE Physical Exam Vitals: 09/13/237 09/13/23 2337 09/14/23 0618 09/14/23 0853 BP: 128/82 113/60 119/64 125/69 Pulse: 98 90 103 104 Resp: 19 19 19 16 Temp: 98.4 ??F (36.9 ??C) 98.6 ??F (37 ??C) 99.1 ??F (37.3 ??C) 98.5 ??F (36.9 ??C) SpO2: 100% 96% 97% 100% Weight: 120.1 kg (264 lb 12.8 oz) Height: 1.575 m (5' 2 ) Wt Readings from Last 3 Encounters: 09/14/23 120.1 kg (264 lb 12.8 oz) ECO General: Well-developed . No acute distress. Heart: Normal S1, S2. Regular rate and rhythm. Lungs: Symmetric breath sounds. Clear to auscultation. Nonlabored respirations. Abdomen: Soft, nontender, nondistended. Bowel sounds present. Extremities: No clubbing or edema. Skin: Warm, dry. No rash. Psychiatric: Cooperative. Appropriate mood and affect. Laboratory Results Recent Labs Component Name 09/13/23205109/12/23204509/11/23200109/07/23200709/06/233 WBC 0.5* 0.5* 0.5* - 0.6* RBC 2.28* 2.17* 2.16* - 2.45* HGB 7.4* 7.0* 7.0* - 7.9* HCT 20.0* 19.2* 19.3* - 22.0* MCV 87.7 88.5 89.4 - 89.8 MCHC 37.0* 36.5* 36.3 - 35.9 PLTCOUNT 11* 13* 16* - 23* NEUTABS 0.05* 0.06* 0.02* 0.08* 0.08* - 0.20* 0.18* LYMPHABS - 0.48* 0.40* - 0.37* - = values in this interval not displayed. Recent Labs Component Name 09/13/23205109/12/23204509/11/23200109/09/23213709/08/23205409/06/23 0026 09/05/23 0909 09/04/23 0527 POTASSIUM 3.7 3.4* 3.6 - 3.9 - 4.1 3.7 CO2 22 24 24 - 20* - 26 27 BUN 10 12 13 - 14 - 9 8 CREATININE 0.66 0.66 0.69 - 0.75 - 0.74 0.70 EGFR >90 >90 >90 - >90 - >90 >90 GLUCOSE 135* 119* 158* - 266* - 95 89 CALCIUM 8.4 8.0* 8.2* - 8.4 - 9.1 8.7 MAGNESIUM - - - - 2.1 - 2.3 2.2 PHOS - - - - 1.9* - - 4.3 ALT 40 47 57* - 66* - 38 24 AST 15 19 19 - 62* - 38* 25 ALKPHOS 55 46 44 - 56 - 62 58 - = values in this interval not displayed. Pathology Results Personally reviewed and summarized above in Hematology & Oncology History RESULT Normal FISH Result inv(3) or t(3;3) RPN1::MECOM Fusion: not detected Deletion 5q: not detected Monosomy 7: not detected Deletion 7q: not detected t(8;21) RUNX1::UIAE3G4 Fusion: not detected 11p15 (NUP98) Rearrangement: not detected 11q23 (KMT2A) Rearrangement: not detected inv(16) or t(16;16) CBFB::MYH11 Fusion: not detected INTERPRETATION There was no evidence of RPN1::MECOM fusion due to 3q21/3q26.2 inversion or translocation, deletion 5q31, monosomy 7, deletion 7q31, RUNX1::RRKI1T8 fusion due to translocation (8;21)(q21.3;q22), 11p15 (NUP98) [...] flow cytometry () shows acute myeloid leukemia. 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 FISH normal -ECHO 59% EF -FISH AML panel WNL ,Normal karyotype -HIV and hep screen NR PLAN - Started 7 + 3 09/06/23 , D8 today - Daily CBC w/diff, CMP, DIC work up (D- Dimer, Fibrinogen and PT/PTT/INR) -HIV and hep screen NR -follow-up on myeloid mutation panel - on medroxyprogesterone 10 mg QD for menstrual bleeding as thrombocytopenia, continue for durationof chemo -On levaquin, posaconazole and valtrex for OI prophylaxis -Recommend SSI given higher blood sugars while on dex with chemo - Transfusion goals plts > 10 K, Hb >7.0, Fibronogen > 100. Please give both leukoreduced and irratiated blood if needed -Dr Stafford will be primary - Daily weights Thank you for the opportunity to participate in the care of this patient. Hem/Onc consult service will continue to follow closely. Please don't hesitate to contact hem/onc consult fellow via the warping mill operator or AMION if any questions or clarifications. Anita Rios MD Hematology Oncology Fellow PGY4 [facility] ST REPRESENTATIVE Associated attestation - Abrahan Rivera MD - 09/14/2023 8:25 PM ARTIST REPRESENTATIVE I have seen and examined the patient with the fellow. I agree with the findings and plan of care asdocumented by the fellow. Date of fellow's note: 09/14/2023 Date of service: 09/13/2023 Abrahan Rivera MD * Ngozi Maharaj - 09/13/2023 9:35 AM CST Problem: Infection Goal: Signs and symptoms of infections are decreased or avoided Outcome: Progressing Problem: Pain/Discomfort Goal: Patient exhibits reduced pain/discomfort as evidenced by pain scores Outcome: Progressing Problem: Fall Risk Goal: Fall risk and fall related injury risk are minimized (interventions related to the fall risk can be found in the flowsheet documentation) Outcome: Progressing Problem: Hemodynamic Status/Cardiac Output Goal: Patient has stable vital signs and fluid balance Outcome: Progressing ST REPRESENTATIVE * Velma Toney MD - 09/12/2023 5:30 PM CST Images from the original note were not included. HEMATOLOGY/ONCOLOGY INPATIENT PROGRESS NOTE Name: Selvin Mckeon Age: [id number] year old Date of : 1985 Date of Service: 09/12/2023 Reason for Consult: AML HEMATOLOGY & ONCOLOGY HISTORY Principal Diagnosis: AML Current Therapy: 7+ 3 Prior Hematology/Oncology History: None SUBJECTIVE History of Present Illness Chief Complaint: Fatigue, flu like symptoms History of Present Illness: Selvin Mckeon is a 38 year old female with no PMH who presented to [facility] presenting with fevers and flu like symptoms, initially thought to have tonsillitis seen on CT face?. Was treated with vanc cefepime and then CTX but had persistent pancytopenia so bone marrow biopsy was done whichshowed 78% blast on the bone marrow flow cytometry. Pt was transferred for concern for AML Formal bone marrow report still pending from [facility] - Lives alone with daughter ( 11 y old) who is currently staying with her dad No PMH of cancers , is adopted so not sure about FH No drugs or smoking or alcohol use Interval hx -D7 7+3 - Feels fatigued, no complaints Review of Systems: As noted in HPI. All other systems reviewed and negative. Past Medical & Surgical History Patient Active Problem List Diagnosis ??? Pancytopenia (CMS-HCC) ??? Tonsillitis ??? 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 NEGATIVE PAST MEDICAL HISTORY - SEE PROBLEM LIST Past Surgical History: Procedure Laterality Date ??? Section ??? Cholecystectomy ??? KIDNEY STONES, REMOVAL Past Oncology History Cancer Staging No matching staging information was found for the patient. Oncology History No history exists. Active Treatment Days for Selvin Mckeon (until 09/13/2023) There are no remaining days before 09/13/2023. Social History Social History Tobacco Use ??? Smoking status: Former Packs/day: 1 Types: Cigarettes Start date: 2004 Quit date: 2010 Years since quittin.0 ??? Smokeless tobacco: Never Substance Use Topics ??? Alcohol use: Yes Comment: occasional Family History Family History Family history unknown: Yes Medications SCHEDULED MEDICATIONS: 0.9% NaCl injection 3 mL, Intracatheter, q8h cytarabine (Cytosar) 460 mg in 0.9% NaCl IV 534.6 mL infusion, Intravenous, Once famotidine (Pepcid) tablet 20 mg, Oral, BID insulin aspart (NovoLOG) pen 0-4 Units, Subcutaneous, AT BEDTIME insulin aspart (NovoLOG) pen 0-6 Units, Subcutaneous, TID WC levoFLOXacin (Levaquin) tablet 500 mg, Oral, QDAY medroxyPROGESTERone (Provera) tablet 10 mg, Oral, QDAY ondansetron (disintegrating) (Zofran ODT) tablet 8 mg, Oral, Once perflutren lipid microsphere (Definity) injection 0.5 mL, Intravenous, intra- Procedure multiple posaconazole (Noxafil) tablet 300 mg, Oral, QDAY WITH DINNER saline nasal spray ([place]; Baby Mulberry) 0.65 % nasal spray 1 spray, Each Nostril, 4X/DAY valACYclovir (Valtrex) tablet 500 mg, Oral, BID [COMPLETED] cytarabine (Cytosar) 460 mg in 0.9% NaCl IV 534.6 mL infusion, Intravenous, Once CONTINUOUS MEDICATIONS: PRN MEDICATIONS: Or Or Or Or 0.9% NaCl injection 1-10 mL, Intracatheter, PRN acetaminophen (Tylenol) tablet 650 mg, Oral, q6h PRN dextrose 10 % IV bolus, Intravenous, PRN dextrose 10 % IV bolus, Intravenous, PRN furosemide (Lasix) injection 20 mg, Intravenous, QDAY PRN glucagon (Glucagen) injection 1 mg, Subcutaneous, PRN glucose (Diabetic Use) (Dex4 Glucose) oral liquid, Oral, PRN glucose (Diabetic Use) oral gel, Oral, PRN glucose chew tablet 4 tablet, Oral, PRN LORazepam (Ativan) injection 1 mg, Intravenous, q8h PRN LORazepam (Ativan) tablet 1 mg, Oral, q8h PRN melatonin tablet 3 mg, Oral, AT BEDTIME PRN ondansetron (disintegrating) (Zofran ODT) tablet 8 mg, Oral, BID PRN ondansetron (Zofran) injection 8 mg, Intravenous, BID PRN prochlorperazine (Compazine) injection 5 mg, Intravenous, q4h PRN prochlorperazine (Compazine) tablet 10 mg, Oral, q4h PRN Allergies No Known Allergies OBJECTIVE Physical Exam Vitals: 09/12/23 0010 09/12/23 0618 09/12/23 1120 09/12/23 1510 BP: 128/66 124/77 139/84 137/86 Pulse: 70 70 77 80 Resp: 18 19 16 18 Temp: 98.4 ??F (36.9 ??C) 98.6 ??F (37 ??C) 97.6 ??F (36.4 ??C) 98 ??F (36.7 ??C) SpO2: 100% 99% 100% 100% Weight: 121.8 kg (268 lb 9.6 oz) Height: 1.575 m (5' 2 ) Wt Readings from Last 3 Encounters: 09/12/23 121.8 kg (268 lb 9.6 oz) ECO General: Well-developed . No acute [...] affect. Laboratory Results Recent Labs Component Name 09/11/23200109/10/23211009/09/23213709/07/23200709/06/23214209/06/23 0026 WBC 0.5* 0.2* 0.3* - 0.6* 1.9* RBC 2.16* 2.21* 2.26* - 2.45* 2.46* HGB 7.0* 7.1* 7.3* - 7.9* 8.0* HCT 19.3* 19.9* 20.2* - 22.0* 22.1* MCV 89.4 90.0 89.4 - 89.8 89.8 MCHC 36.3 35.7 36.1 - 35.9 36.2 PLTCOUNT 16* 15* 17* - 23* 26* NEUTABS 0.08* 0.08* 0.10* 0.17* - 0.20* 0.18* 0.16* 0.13* LYMPHABS 0.40* - - - 0.37* 1.58 - = values in this interval not displayed. Recent Labs Component Name 09/11/23200109/10/23211009/09/23213709/08/23205409/06/23 0026 09/05/23 0909 09/04/23 0527 POTASSIUM 3.6 4.1 3.8 3.9 - 4.1 3.7 CO2 24 22 22 20* - 26 27 BUN 13 11 11 14 - 9 8 CREATININE 0.69 0.61 0.60 0.75 - 0.74 0.70 EGFR >90 >90 >90 >90 - >90 >90 GLUCOSE 158* 274* 232* 266* - 95 89 CALCIUM 8.2* 8.0* 8.0* 8.4 - 9.1 8.7 MAGNESIUM - - - 2.1 - 2.3 2.2 PHOS - - - 1.9* - - 4.3 ALT 57* 68* 71* 66* - 38 24 AST 19 36* 46* 62* - 38* 25 ALKPHOS 44 53 56 56 - 62 58 - = values in this interval not displayed. Pathology Results Personally reviewed and summarized above in Hematology & Oncology History RESULT Normal FISH Result inv(3) or t(3;3) RPN1::MECOM Fusion: not detected Deletion 5q: not detected Monosomy 7: not detected Deletion 7q: not detected t(8;21) RUNX1::SMOB2S5 Fusion: not detected 11p15 (NUP98) Rearrangement: not detected 11q23 (KMT2A) Rearrangement: not detected inv(16) or t(16;16) CBFB::MYH11 Fusion: not detected INTERPRETATION There was no evidence of RPN1::MECOM fusion due to 3q21/3q26.2 inversion or translocation, deletion 5q31, monosomy 7, deletion 7q31, RUNX1::FORK3Z3 fusion due to translocation (8;21)(q21.3;q22), 11p15 (NUP98) [...] only. Flow Cytometry Summary Concurrent flow cytometry ([id number]) shows acute myeloid leukemia. Radiology Results Personally reviewed and summarized above in Hematology & Oncology History No results found. ASSESSMENT Selvin Mckeon is a 38 year old female with Pancytopenia presenting with suspected AML # AML , NPM-1 mut , fav risk # Pancytopenia, neutropenia #Tonsillitis , s/p augmentin -transferred from [facility] after a BMBX showed 78% blasts on bone marrow flow cytometry , final report of biopsy showed 90% blasts consistent with AML . FISH normal -ECHO 59% EF -FISH AML panel WNL ,Normal karyotype PLAN - Started 7 + 3 09/06/23 , D7 today - Daily CBC w/diff, CMP, DIC work up (D- Dimer, Fibrinogen and PT/PTT/INR), Hemolysis (LDH, Retics count, haptoglobin) - HIV and hep screen NR -HLA labs and CMV ordered - Bone marrow performed 09/05/23 , f/U on results of MMP and Go path - on medroxyprogesterone 10 mg QD for menstrual bleeding as thrombocytopenia, continue for durationof chemo -On levaquin, posaconazole and valtrex for OI prophylaxis -Recommend SSI given higher blood sugars while on dex with chemo - Please obtain a full ID workup (BCx, UA, CXR) if there is concern for infection - Transfusion goals plts > 10 K, Hb >7.0, Fibronogen > 100. Please give both leukoreduced and irratiated blood if needed -Dr Stafford will be primary -Can start imodium for diarrhea if needed, no concern for c diff at this time - Daily weights Thank you for the opportunity to participate in the care of this patient. Hem/Onc consult service will continue to follow closely. Please don't hesitate to contact hem/onc consult fellow via the warping mill operator or AMION if any questions or clarifications. Velma Toney MD, PGY-4 Hematology-Oncology Fellow [facility] ST REPRESENTATIVE Associated attestation - Abrahan Rivera MD - 09/13/2023 1:51 PM ARTIST REPRESENTATIVE I have seen and examined the patient with the fellow. I agree with the findings and plan of care asdocumented by the fellow. Date of fellow's note: 09/12/2023 Date of service: 09/12/2023 Abrahan Rivera MD * Justin Moon RN - 09/12/2023 4:06 PM CST Care Coordination Progress Note Anticipated level of care at discharge: Home: Anticipated level of care provider: None: Anticipated Discharge Date: 10/03/23: Discharge Plan: Return home when ready. Patient is Day 7 of 7+3 Induction chemotherapy In-patient care to continue through chemo, resolution of [employer], and count recovery with ANC goal >500. Orientation Level: Oriented X4: Family Support (Name and Phone): Extended Emergency Contact Information Primary Emergency Contact: Raheem Lai Mobile Relation: Significant other Secondary Emergency Contact: French Rosenthal Mobile Relation: Friend [employer] Field Processing Supervisor needed? No Transportation at Discharge: Friend: READMISSION RISK SCORE is 7 at 4:06 PM 09/12/2023.: Name: Justin Moon RN [phone] ST REPRESENTATIVE * Myah Roberts, - 09/12/2023 2:52 PM CST Internal Medicine Progress Note 09/12/2023 @ 2:52 PM Admit Date: 09/03/2023 - Length of Stay 9 Day(s) Subjective: 09/10: Given [place] paperwork this AM; told that if there are issues to not hesitate to ask either medicine or oncology teams for assistance 09/11: NAEON. Notes slowly improving swelling. Continues diuresis w/ ~2L Uop thus far today. ANC 100, Hgb, plts trending down. Allopurinol and IVF DC'd. AC checks started, thus far not needing insulin. 09/12: NAEON. Some diarrhea starting this AM. Again notes improved swelling. SO at bedside and asked about nutrition. ANC 80, Hgb 7, plts 16. Improved BG, LFTs. Objective: Temp: [98 ??F (36.7 ??C)-98.6 ??F (37 ??C)] 98.6 ??F (37 ??C) Pulse: [70-74] 70 Resp: [18-19] 19 BP: (124-143)/(66-96) 124/77 Physical Exam General: NAD. Sitting upright in recliner comfortably. HENT: NC/AT Eyes: Anicteric. Non-injected. Chest: No increased work of breathing. Barone at right chest. Cardiovascular: Reg rate Extremities: BLE edema, pitting present -- improving Neurological: Alert; conversational and follows commands. Moves all extremities spontaneously without issue. No focal deficits. Psych: Appropriate mood and affect Data reviewed including pertinent labs, imaging, diagnostics. 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) Pancytopenia (CMS-HCC) Tonsillitis #AML #Pancytopenia - BMB from OSH noting large proportion of blasts; final report noting AML - Repeat BMB today to ensure appropriate collection of all testing required prior to treatment - s/p Barone placement to begin chemo - TTE (09/05) unremarkable PLAN: - D7 induction with 7 + 3 - DC allopurinol - Continue OI ppx: Levofloxacin, Posaconazole, Valacyclovir - DC medroxyprogesterone 10 in setting of thrombocytopenia and menstrual bleeding - Daily labs: CBC??w/diff, CMP, Uric Acid, DIC work up (D- Dimer, Fibrinogen and PT/PTT/INR), Hemolysis (LDH, Retics count, haptoglobin) - Transfuse for plts > 10 K, Hb >7.0, Fibronogen > 100 - Holding IVF given swelling #Tonsillitis - Noted at OSH and started on abx; continued on Augmentin at [facility] which was completed - Continue to monitor #Disposition - Per H/O team. Requires multiple weeks inpatient. Nutrition: Regular diet DVT Prophylaxis: SCDs Code: Full Dispo: Above The best way to reach me is through Secure Chat. Myah Roberts DO 09/12/[address]23 ST REPRESENTATIVE * Gaurav Moyer - 09/12/2023 11:30 AM CST Music Therapy Progress Note Start Time: 1015 End Time: 1030 Music Therapy Goals: Increase relaxation and Increase meaningful social interaction Intervention Provided: Provide familiar / significant music and Provide opportunities for social interaction Therapy Type: Individual Therapy Patient Response: Appropriate Affect: Mood, appropriate Treatment Modality: Music Therapy Music Therapist Gaurav Moyer visited patient in [facility] room. Patient was observed sitting up in chair, alert and oriented. Patient reported feeling fatigued this morning and requested live music relaxation. During interventions, Patient made eye contact, smiled, and breathed slowly and deeply. At conclusion of session, no nonverbal indicators of distress observed. Gaurav Moyer, [facility], [place] 09/12/2023 11:[address] REPRESENTATIVE * Ricarda Hassan RN - 09/12/2023 9:33 AM CST Pt voiced understanding calling for assistance, call light in reach ST REPRESENTATIVE * Remintgon Stafford MD - 09/11/2023 5:49 PM CST Images from the original note were not included. HEMATOLOGY/ONCOLOGY INPATIENT PROGRESS NOTE Name: Selvin Mckeon Age: [age] year old Date of : 1985 Date of Service: 09/11/2023 Reason for Consult: AML HEMATOLOGY & ONCOLOGY HISTORY Principal Diagnosis: AML Current Therapy: 7+ 3 Prior Hematology/Oncology History: None SUBJECTIVE History of Present Illness Chief Complaint: Fatigue, flu like symptoms History of Present Illness: Selvin Mckeon is a 38 year old female with no PMH who presented to [facility] presenting with fevers and flu like symptoms, initially thought to have tonsillitis seen on CT face?. Was treated with vanc cefepime and then CTX but had persistent pancytopenia so bone marrow biopsy was done whichshowed 78% blast on the bone marrow flow cytometry. Pt was transferred for concern for AML Formal bone marrow report still pending from [facility] - Lives alone with daughter ( 11 y old) who is currently staying with her dad No PMH of cancers , is adopted so not sure about FH No drugs or smoking or alcohol use Interval hx -D6 7+3 - Feels fatigued Review of Systems: As noted in HPI. All other systems reviewed and negative. Past Medical & Surgical History Patient Active Problem List Diagnosis ??? Pancytopenia (CMS-HCC) ??? Tonsillitis ??? 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 NEGATIVE PAST MEDICAL HISTORY - SEE PROBLEM LIST Past Surgical History: Procedure Laterality Date ??? Section ??? Cholecystectomy ??? KIDNEY STONES, REMOVAL Past Oncology History Cancer Staging No matching staging information was found for the patient. Oncology History No history exists. Active Treatment Days for Selvin Mckeon (until 09/12/2023) 09/11/2023 ONCOLOGY TREATMENT: IP AML INDUCTION (IDARUBICIN CYTARABINE) (7+3) Day 7, Cycle 1 (Started) Pre-Medications: ondansetron (disintegrating) (Zofran ODT) tablet 8 mg Chemotherapy: cytarabine (Cytosar) 460 mg in 0.9% NaCl IV 534.6 mL infusion Social History Social History Tobacco Use ??? Smoking status: Former Packs/day: 1 Types: Cigarettes Start date: 2004 Quit date: 2010 Years since quittin.9 ??? Smokeless tobacco: Never Substance Use Topics ??? Alcohol use: Yes Comment: occasional Family History Family History Family history unknown: Yes Medications SCHEDULED MEDICATIONS: 0.9% NaCl injection 3 mL, Intracatheter, q8h cytarabine (Cytosar) 460 mg in 0.9% NaCl IV 534.6 mL infusion, Intravenous, Once famotidine (Pepcid) tablet 20 mg, Oral, BID insulin aspart (NovoLOG) pen 0-4 Units, Subcutaneous, AT BEDTIME insulin aspart (NovoLOG) pen 0-6 Units, Subcutaneous, TID WC levoFLOXacin (Levaquin) tablet 500 mg, Oral, QDAY medroxyPROGESTERone (Provera) tablet 10 mg, Oral, QDAY perflutren lipid microsphere (Definity) injection 0.5 mL, Intravenous, intra- Procedure multiple posaconazole (Noxafil) tablet 300 mg, Oral, QDAY WITH DINNER saline nasal spray ([place]; Baby [place]) 0.65 % nasal spray 1 spray, Each Nostril, 4X/DAY valACYclovir (Valtrex) tablet 500 mg, Oral, BID [COMPLETED] cytarabine (Cytosar) 460 mg in 0.9% NaCl IV 534.6 mL infusion, Intravenous, Once [COMPLETED] ondansetron (disintegrating) (Zofran ODT) tablet 8 mg, Oral, Once [START ON 09/12/2023] cytarabine (Cytosar) 460 mg in 0.9% NaCl IV 534.6 mL infusion, Intravenous, Once [START ON 09/12/2023] ondansetron (disintegrating) (Zofran ODT) tablet 8 mg, Oral, Once CONTINUOUS MEDICATIONS: PRN MEDICATIONS: Or Or Or Or 0.9% NaCl injection 1-10 mL, Intracatheter, PRN acetaminophen (Tylenol) tablet 650 mg, Oral, q6h PRN dextrose 10 % IV bolus, Intravenous, PRN dextrose 10 % IV bolus, Intravenous, PRN furosemide (Lasix) injection 20 mg, Intravenous, QDAY PRN glucagon (Glucagen) injection 1 mg, Subcutaneous, PRN glucose (Diabetic Use) (Dex4 Glucose) oral liquid, Oral, PRN glucose (Diabetic Use) oral gel, Oral, PRN glucose chew tablet 4 tablet, Oral, PRN LORazepam (Ativan) injection 1 mg, Intravenous, q8h PRN LORazepam (Ativan) tablet 1 mg, Oral, q8h PRN melatonin tablet 3 mg, Oral, AT BEDTIME PRN ondansetron (disintegrating) (Zofran ODT) tablet 8 mg, Oral, BID PRN ondansetron (Zofran) injection 8 mg, Intravenous, BID PRN prochlorperazine (Compazine) injection 5 mg, Intravenous, q4h PRN prochlorperazine (Compazine) tablet 10 mg, Oral, q4h PRN Allergies No Known Allergies OBJECTIVE Physical Exam Vitals: 09/11/23 0342 09/11/23 0756 09/11/23 1244 09/11/23 1643 BP: 124/87 141/97 145/98 143/90 Pulse: 74 71 70 71 Resp: 19 18 18 18 Temp: 98.4 ??F (36.9 ??C) 98.4 ??F (36.9 ??C) 98 ??F (36.7 ??C) 98 ??F (36.7 ??C) SpO2: 99% 97% 99% 100% Weight: Height: Wt Readings from Last 3 Encounters: 09/11/23 125.6 kg (277 lb) ECO General: Well-developed . No acute distress. [...] affect. Laboratory Results Recent Labs Component Name 09/10/23211009/09/23213709/08/23205409/07/[id number]/06/23214209/06/236 09/05/23 0909 WBC 0.2* 0.3* 0.4* - 0.6* 1.9* 1.5* RBC 2.21* 2.26* 2.06* - 2.45* 2.46* 2.69* HGB 7.1* 7.3* 6.7* - 7.9* 8.0* 8.7* HCT 19.9* 20.2* 18.8* - 22.0* 22.1* 24.7* MCV 90.0 89.4 91.3 - 89.8 89.8 91.8 MCHC 35.7 36.1 35.6 - 35.9 36.2 35.2 PLTCOUNT 15* 17* 19* - 23* 26* 32* NEUTABS 0.10* 0.17* 0.23* - 0.20* 0.18* 0.16* 0.13* 0.15* 0.12* LYMPHABS - - - - 0.37* 1.58 1.16 - = values in this interval not displayed. Recent Labs Component Name 09/10/23211009/09/23213709/08/23205409/06/232509/05/23 0909 09/04/23 0527 POTASSIUM 4.1 3.8 3.9 - 4.1 3.7 CO2 22 22 20* - 26 27 BUN 11 11 14 - 9 8 CREATININE 0.61 0.60 0.75 - 0.74 0.70 EGFR >90 >90 >90 - >90 >90 GLUCOSE 274* 232* 266* - 95 89 CALCIUM 8.0* 8.0* 8.4 - 9.1 8.7 MAGNESIUM - - 2.1 - 2.3 2.2 PHOS - - 1.9* - - 4.3 ALT 68* 71* 66* - 38 24 AST 36* 46* 62* - 38* 25 ALKPHOS 53 56 56 - 62 58 - = values in this interval not displayed. Pathology Results Personally reviewed and summarized above in Hematology & Oncology History RESULT Normal FISH Result inv(3) or t(3;3) RPN1::MECOM Fusion: not detected Deletion 5q: not detected Monosomy 7: not detected Deletion 7q: not detected t(8;21) RUNX1::DFWB4T7 Fusion: not detected 11p15 (NUP98) Rearrangement: not detected 11q23 (KMT2A) Rearrangement: not detected inv(16) or t(16;16) CBFB::MYH11 Fusion: not detected INTERPRETATION There was no evidence of RPN1::MECOM fusion due to 3q21/3q26.2 inversion or translocation, deletion 5q31, monosomy 7, deletion 7q31, RUNX1::EJGQ3J9 fusion due to translocation (8;21)(q21.3;q22), 11p15 (NUP98) [...] only. Flow Cytometry Summary Concurrent flow cytometry ([id number]) shows acute myeloid leukemia. Radiology Results Personally reviewed and summarized above in Hematology & Oncology History No results found. ASSESSMENT Selvin Mckeon is a 38 year old female with Pancytopenia presenting with suspected AML # AML , NPM-1 positive # Pancytopenia, neutropenia #Tonsillitis , s/p augmentin -transferred from [facility] after a BMBX showed 78% blasts on bone marrow flow cytometry , final report of biopsy showed 90% blasts consistent with AML . FISH normal -ECHO 59% EF -FISH AML panel WNL ,Normal karyotype PLAN - Started 7 + 3 09/06/23 , D6 today - Daily CBC w/diff, CMP, DIC work up (D- Dimer, Fibrinogen and PT/PTT/INR), Hemolysis (LDH, Retics count, haptoglobin) - HIV and hep screen NR -HLA labs and CMV ordered - Bone marrow performed 09/05/23 , f/U on results of MMP Karyotype and Go path - on medroxyprogesterone 10 mg QD for menstrual bleeding as thrombocytopenia, continue for durationof chemo -On levaquin, posaconazole and valtrex for OI prophylaxis -D/C allopurinol , recommend SSI given higher blood sugars while on dex with chemo - Please obtain a full ID workup (BCx, UA, CXR) if there is concern for infection - Transfusion goals plts > 10 K, Hb >7.0, Fibronogen > 100. Please give both leukoreduced and irratiated blood if needed -Dr Stafford will be primary -Can start imodium for diarrhea if needed, no concern for c diff at this time - Daily weights Thank you for the opportunity to participate in the care of this patient. Hem/Onc consult service will continue to follow closely. Please don't hesitate to contact hem/onc consult fellow via the warping mill operator or AMION if any questions or clarifications. Velma Toney MD, PGY-4 Hematology-Oncology Fellow [facility] I personally evaluated and examined Selvin Mckeon. I confirmed the aguirre elements of of history and physical examination. I also discussed the assessment and plan in detail with the team on rounds and with the patient. I made some modifications to the above note. I fully concur with the above assessment and plan. Maribel Stafford MD [facility] Department of Internal Medicine Division of Hematology Oncology ST REPRESENTATIVE * Myah Roberts, DO - 09/11/2023 4:32 PM CST Internal Medicine Progress Note 09/11/2023 @ 4:32 PM Admit Date: 09/03/2023 - Length of Stay 8 Day(s) Subjective: 09/10: Given [place] paperwork this AM; told that if there are issues to not hesitate to ask either medicine or oncology teams for assistance 09/11: NAEON. Notes slowly improving swelling. Continues diuresis w/ ~2L Uop thus far today. ANC 100, Hgb, plts trending down. Allopurinol and IVF DC'd. AC checks started, thus far not needing insulin. Objective: Temp: [97.8 ??F (36.6 ??C)-98.4 ??F (36.9 ??C)] 98 ??F (36.7 ??C) Pulse: [66-85] 70 Resp: [18-20] 18 BP: (124-169)/(81-98) 145/98 Physical Exam General: NAD. Sitting upright in recliner comfortably. HENT: NC/AT Eyes: Anicteric. Non-injected. Chest: CTAB. No crackles or wheezes. No increased work of breathing. Barone at right chest. Cardiovascular: RRR. No murmurs, rubs, or gallops Abdomen: Soft. NT/ND. Normal BS+. Extremities: BLE edema, pitting present Skin: Warm. Dry. Neurological: Alert; conversational and follows commands. Moves all extremities spontaneously without issue. No focal deficits. Psych: Appropriate mood and affect Grossly unchanged since 09/10/2023 Data reviewed including pertinent labs, imaging, diagnostics. 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) Pancytopenia (CMS-HCC) Tonsillitis #AML #Pancytopenia - BMB from OSH noting large proportion of blasts; final report noting AML - Repeat BMB today to ensure appropriate collection of all testing required prior to treatment - s/p Barone placement to begin chemo - TTE (09/05) unremarkable PLAN: - D6 induction with 7 + 3 - DC allopurinol - f/u results of BMB from 09/05 - Continue OI ppx: Levofloxacin, Posaconazole, Valacyclovir - Continue medroxyprogesterone 10 in setting of thrombocytopenia and menstrual bleeding - Daily labs: CBC??w/diff, CMP, Uric Acid, DIC work up (D- Dimer, Fibrinogen and PT/PTT/INR), Hemolysis (LDH, Retics count, haptoglobin) - Transfuse for plts > 10 K, Hb >7.0, Fibronogen > 100 - Holding IVF given swelling #Tonsillitis - Noted at OSH and started on abx; continued on Augmentin [facility] which was completed - Continue to monitor #Disposition - Will likely remained hospitalized for 3 weeks for treatment/monitoring, then home w/o needs Nutrition: Regular diet DVT Prophylaxis: SCDs Code: Full Dispo: Above The best way to reach me is through Secure Chat. Myah Roberts DO 09/11/[address]23 ST REPRESENTATIVE * Gaurav Moyer - 09/11/2023 1:20 PM CST Music Therapy Progress Note Start Time: 1210 End Time: 1240 Music Therapy Goals: Increase relaxation and Increase meaningful social interaction Intervention Provided: Provide familiar / significant music Therapy Type: Individual Therapy Patient Response: Appropriate Affect: Mood, appropriate Treatment Modality: Music Therapy Music Therapist Gaurav Moyer visited patient in [facility] room. Patient was observed sitting up in chair, alert and oriented. During interventions, Patient smiled, sang, madeeye contact, and moved in time with the music. At conclusion of session, no nonverbal indicators of distress observed. Gaurav Moyer, [facility], [facility] 09/11/2023 1:[address] REPRESENTATIVE * Neeru Hanson, CORRIE - 09/10/2023 7:16 PM CST Patient is receiving C1D5 continuous Cytarabine infusion via [facility] CVC without complications, independent verification of chemotherapy orders verified with 2 RNs, positive blood return noted prior to infusion, see MAR and flowsheets, patient educated on expected side effects and when to warrant a call to the nurse, patient verbalizes understanding, patient is sitting up in the chair awake and alert, patient denies any pain or discomfort, respirations are equal and unlabored, chair is in lowest locked position, bedside table and call light is within reach, patient encouraged to call nurse or nursing staff for any needs or assistance. ST REPRESENTATIVE * Remington Stafford MD - 09/10/2023 3:53 PM CST Images from the original note were not included. HEMATOLOGY/ONCOLOGY INPATIENT PROGRESS NOTE Name: Selvin Mckeon Age: [age] year old Date of : 1985 Date of Service: 09/10/2023 Reason for Consult: AML HEMATOLOGY & ONCOLOGY HISTORY Principal Diagnosis: AML Current Therapy: 7+ 3 Prior Hematology/Oncology History: None SUBJECTIVE History of Present Illness Chief Complaint: Fatigue, flu like symptoms History of Present Illness: Selvin Mckeon is a 38 year old female with no PMH who presented to [facility] presenting with fevers and flu like symptoms, initially thought to have tonsillitis seen on CT face?. Was treated with vanc cefepime and then CTX but had persistent pancytopenia so bone marrow biopsy was done whichshowed 78% blast on the bone marrow flow cytometry. Pt was transferred for concern for AML Formal bone marrow report still pending from [facility] - Lives alone with daughter ( 11 y old) who is currently staying with her dad No PMH of cancers , is adopted so not sure about FH No drugs or smoking or alcohol use Interval hx -D5 7+3 Some nose bleed overnight which resolved spontaneously Review of Systems: As noted in HPI. All other systems reviewed and negative. Past Medical & Surgical History Patient Active Problem List Diagnosis ??? Pancytopenia (CMS-HCC) ??? Tonsillitis ??? 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 NEGATIVE PAST MEDICAL HISTORY - SEE PROBLEM LIST Past Surgical History: Procedure Laterality Date ??? Section ??? Cholecystectomy ??? KIDNEY STONES, REMOVAL Past Oncology History Cancer Staging No matching staging information was found for the patient. Oncology History No history exists. Active Treatment Days for Selvin Mckeon (until 09/11/2023) 09/10/2023 ONCOLOGY TREATMENT: IP AML INDUCTION (IDARUBICIN CYTARABINE) (7+3) Day 6, Cycle 1 (Started) Pre-Medications: ondansetron (disintegrating) (Zofran ODT) tablet 8 mg Chemotherapy: cytarabine (Cytosar) 460 mg in 0.9% NaCl IV 534.6 mL infusion Social History Social History Tobacco Use ??? Smoking status: Former Packs/day: 1 Types: Cigarettes Start date: 2004 Quit date: 2010 Years since quittin.9 ??? Smokeless tobacco: Never Substance Use Topics ??? Alcohol use: Yes Comment: occasional Family History Family History Family history unknown: Yes Medications SCHEDULED MEDICATIONS: 0.9% NaCl injection 3 mL, Intracatheter, q8h allopurinol (Zyloprim) tablet 300 mg, Oral, QDAY AFTER BREAKFAST cytarabine (Cytosar) 460 mg in 0.9% NaCl IV 534.6 mL infusion, Intravenous, Once dexAMETHasone (Decadron) 8 mg in 0.9% NaCl IV 57 mL IVPB, Intravenous, Once famotidine (Pepcid) tablet 20 mg, Oral, BID levoFLOXacin (Levaquin) tablet 500 mg, Oral, QDAY medroxyPROGESTERone (Provera) tablet 10 mg, Oral, QDAY perflutren lipid microsphere (Definity) injection 0.5 mL, Intravenous, intra- Procedure multiple posaconazole (Noxafil) tablet 300 mg, Oral, QDAY WITH DINNER valACYclovir (Valtrex) tablet 500 mg, Oral, BID [COMPLETED] cytarabine (Cytosar) 460 mg in 0.9% NaCl IV 534.6 mL infusion, Intravenous, Once [START ON 09/11/2023] cytarabine (Cytosar) 460 mg in 0.9% NaCl IV 534.6 mL infusion, Intravenous, Once [START ON 09/11/2023] ondansetron (disintegrating) (Zofran ODT) tablet 8 mg, Oral, Once CONTINUOUS MEDICATIONS: 0.9% NaCl infusion, Intravenous, Continuous PRN MEDICATIONS: 0.9% NaCl injection 1-10 mL, Intracatheter, PRN acetaminophen (Tylenol) tablet 650 mg, Oral, q6h PRN furosemide (Lasix) injection 20 mg, Intravenous, QDAY PRN LORazepam (Ativan) injection 1 mg, Intravenous, q8h PRN LORazepam (Ativan) tablet 1 mg, Oral, q8h PRN melatonin tablet 3 mg, Oral, AT BEDTIME PRN ondansetron (disintegrating) (Zofran ODT) tablet 8 mg, Oral, BID PRN ondansetron (Zofran) injection 8 mg, Intravenous, BID PRN prochlorperazine (Compazine) injection 5 mg, Intravenous, q4h PRN prochlorperazine (Compazine) tablet 10 mg, Oral, q4h PRN rasburicase (Elitek) 3 mg in 0.9% NaCl IV 50 mL bolus, Intravenous, PRN Allergies No Known Allergies OBJECTIVE Physical Exam Vitals: 09/09/23 2336 09/10/23 0434 09/10/23 0802 09/10/23 1228 BP: 127/82 121/72 135/91 141/98 Pulse: 84 83 82 80 Resp: 19 19 18 18 Temp: 98.4 ??F (36.9 ??C) 98.5 ??F (36.9 ??C) 97.9 ??F (36.6 ??C) 98.3 ??F (36.8 ??C) SpO2: 100% 100% 98% 100% Weight: 125.1 kg (275 lb 12.8 oz) Height: 1.575 m (5' 2 ) Wt Readings from Last 3 Encounters: 09/10/23 125.1 kg (275 lb 12.8 oz) ECO General: Well-developed . No acute [...] affect. Laboratory Results Recent Labs Component Name 09/09/23213709/08/235 09/07/23 2008 09/06/23 2143 09/06/23 0026 09/05/23 0909 WBC 0.3* 0.4* 0.5* 0.6* 1.9* 1.5* RBC 2.26* 2.06* 2.23* 2.45* 2.46* 2.69* HGB 7.3* 6.7* 7.2* 7.9* 8.0* 8.7* HCT 20.2* 18.8* 20.2* 22.0* 22.1* 24.7* MCV 89.4 91.3 90.6 89.8 89.8 91.8 MCHC 36.1 35.6 35.6 35.9 36.2 35.2 PLTCOUNT 17* 19* 25* 23* 26* 32* NEUTABS 0.17* 0.23* 0.23* 0.20* 0.18* 0.16* 0.13* 0.15* 0.12* LYMPHABS - - - 0.37* 1.58 1.16 Recent Labs Component Name 09/09/23213709/08/23205409/07/23200709/06/23 0026 09/05/23 0909 09/04/23 0527 POTASSIUM 3.8 3.9 4.1 - 4.1 3.7 CO2 22 20* 21* - 26 27 BUN 11 14 7 - 9 8 CREATININE 0.60 0.75 0.60 - 0.74 0.70 EGFR >90 >90 >90 - >90 >90 GLUCOSE 232* 266* 151* - 95 89 CALCIUM 8.0* 8.4 8.5 - 9.1 8.7 MAGNESIUM - 2.1 - - 2.3 2.2 PHOS - 1.9* - - - 4.3 ALT 71* 66* 44 - 38 24 AST 46* 62* 33 - 38* 25 ALKPHOS 56 56 59 - 62 58 - = values in this interval not displayed. Pathology Results Personally reviewed and summarized above in Hematology & Oncology History RESULT Normal FISH Result inv(3) or t(3;3) RPN1::MECOM Fusion: not detected Deletion 5q: not detected Monosomy 7: not detected Deletion 7q: not detected t(8;21) RUNX1::MFPS1T0 Fusion: not detected 11p15 (NUP98) Rearrangement: not detected 11q23 (KMT2A) Rearrangement: not detected inv(16) or t(16;16) CBFB::MYH11 Fusion: not detected INTERPRETATION There was no evidence of RPN1::MECOM fusion due to 3q21/3q26.2 inversion or translocation, deletion 5q31, monosomy 7, deletion 7q31, RUNX1::JAGL5J1 fusion due to translocation (8;21)(q21.3;q22), 11p15 (NUP98) [...] flow cytometry () shows acute myeloid leukemia. Radiology Results Personally reviewed and summarized above in Hematology & Oncology History No results found. ASSESSMENT Selvin Mckeon is a 38 year old female with Pancytopenia presenting with suspected AML # AML , pending cytogenetics and molecular studies # Pancytopenia, neutropenia #Tonsillitis , s/p augmentin -transferred from [facility] after a BMBX showed 78% blasts on bone marrow flow cytometry , final report of biopsy showed 90% blasts consistent with AML . FISH normal -ECHO 59% EF -FISH AML panel WNL PLAN - Started 7 + 3 09/06/23 , D5 today - Daily CBC w/diff, CMP, DIC work up (D- Dimer, Fibrinogen and PT/PTT/INR), Hemolysis (LDH, Retics count, haptoglobin), TLS labs ( uric acid and LDH ) - HIV and hep screen NR -HLA labs and CMV ordered - Bone marrow performed 09/05/23 , f/U on results of MMP Karyotype and Go path - on medroxyprogesterone 10 mg QD for menstrual bleeding as thrombocytopenia, continue for durationof chemo -On levaquin, posaconazole and valtrex for OI prophylaxis - Please obtain a full ID workup (BCx, UA, CXR) if there is concern for infection - Transfusion goals plts > 10 K, Hb >7.0, Fibronogen > 100. Please give both leukoreduced and irratiated blood if needed -Dr Stafford will be primary -Can start imodium for diarrhea if needed, no concern for c diff at this time - Daily weights Thank you for the opportunity to participate in the care of this patient. Hem/Onc consult service will continue to follow closely. Please don't hesitate to contact hem/onc consult fellow via the warping mill operator or AMION if any questions or clarifications. Velma Toney MD, PGY-4 Hematology-Oncology Fellow [facility] I personally evaluated and examined Selvin Mckeon. I confirmed the aguirre elements of of history and physical examination. I also discussed the assessment and plan in detail with the team on rounds and with the patient. I made some modifications to the above note. I fully concur with the above assessment and plan. Maribel Stafford MD [facility] Department of Internal Medicine Division of Hematology Oncology Gaurav Martinez - 09/10/2023 10:16 AM CST Music Therapy Progress Note Start Time: 940 End Time: 1015 Music Therapy Goals: Develop rapport, Increase relaxation and Increase meaningful social interaction Intervention Provided: Provide familiar / significant music and Provide opportunities for social interaction Therapy Type: Individual Therapy Patient Response: Appropriate Affect: Mood, appropriate Treatment Modality: Music Therapy Music Therapist Gaurav Moyer visited patient in [facility]. This ad copy writer greeted Patient and oriented her to the music therapy program. Patient invited this ad copy writer intoher room for a session, where Patient was observed sitting up in chair, alert and oriented. During i nterventions, Patient sang, smiled, made eye contact, and moved in time with the music. Patient engaged in emotional processing throughout the session At conclusion of session, no nonverbal indicators of distress observed, and patient verbally affirmed a positive change in her mood. Gaurav Moyer [facility] [place]- 09/10/2023 10:16 AM * Cheryl Cronin MD - 09/10/2023 9:54 AM CST Internal Medicine Progress Note 09/10/2023 @ 9:54 AM Admit Date: 09/03/2023 - Length of Stay 7 Day(s) Subjective: - No acute issues or endorsements this AM - Tolerating treatment well - Energy level slightly improved from yesterday - Given FMLA paperwork this AM; told that if there are issues to not hesitate to ask either medicine or oncology teams for assistance Objective: Temp: [97.8 ??F (36.6 ??C)-98.5 ??F (36.9 ??C)] 97.9 ??F (36.6 ??C) Pulse: [74-84] 82 Resp: [18-19] 18 BP: (121-149)/(72-93) 135/91 Physical Exam General: NAD. Sitting upright on sofa comfortably. HENT: NC/AT Eyes: Anicteric. Non-injected. Chest: CTAB. No crackles or wheezes. No increased work of breathing. Barone at right chest. Cardiovascular: RRR. No murmurs, rubs, or gallops Abdomen: Soft. NT/ND. Normal BS+. Extremities: No signs of clubbing, cyanosis, or edema. Skin: Warm. Dry. Neurological: Alert; conversational and follows commands. Moves all extremities spontaneously without issue. No focal deficits. Psych: Appropriate mood and affect Grossly unchanged since 09/09/2023 Data reviewed including pertinent labs, imaging, diagnostics. Imaging: IR CENTRAL LINE INSERT TUNNEL Result Date: 09/05/2023 IMPRESSION: Successful Right internal jugular tunneled central venous catheter placement. 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) Pancytopenia (CMS-HCC) Tonsillitis #AML #Pancytopenia - BMB from OSH noting large proportion of blasts; final report noting AML - Repeat BMB today to ensure appropriate collection of all testing required prior to treatment - s/p Barone placement to begin chemo - TTE (09/05) unremarkable PLAN: - D5 of induction with 7 + 3 - Continue allopurinol - f/u results of BMB from 09/05 - Continue OI ppx: Levofloxacin, Posaconazole, Valacyclovir - Continue medroxyprogesterone 10 in setting of thrombocytopenia and menstrual bleeding - Daily labs: CBC??w/diff, CMP, Uric Acid, DIC work up (D- Dimer, Fibrinogen and PT/PTT/INR), Hemolysis (LDH, Retics count, haptoglobin) - Transfuse for plts > 10 K, Hb >7.0, Fibronogen > 100 #Tonsillitis - Noted at OSH and started on abx; continued on Augmentin at [facility] which was completed - Continue to monitor #Disposition - Will likely remained hospitalized for one month for treatment/monitoring Nutrition: Regular diet DVT Prophylaxis: SCDs Code: Full Dispo: Above The best way to reach me is through Secure Chat. Cheryl Cronin MD 09/10/2023 ST REPRESENTATIVE * Remington Stafford MD - 09/09/2023 1:23 PM CST Images from the original note were not included. HEMATOLOGY/ONCOLOGY INPATIENT PROGRESS NOTE Name: Selvin Mckeon Age: [age] year old Date of : 1985 Date of Service: 09/09/2023 Reason for Consult: AML HEMATOLOGY & ONCOLOGY HISTORY Principal Diagnosis: AML Current Therapy: 7+ 3 Prior Hematology/Oncology History: None SUBJECTIVE History of Present Illness Chief Complaint: Fatigue, flu like symptoms History of Present Illness: Selvin Mckeon is a 38 year old female with no PMH who presented to [facility] presenting with fevers and flu like symptoms, initially thought to have tonsillitis seen on CT face?. Was treated with vanc cefepime and then CTX but had persistent pancytopenia so bone marrow biopsy was done whichshowed 78% blast on the bone marrow flow cytometry. Pt was transferred for concern for AML Formal bone marrow report still pending from [facility] - Lives alone with daughter ( 11 y old) who is currently staying with her dad No PMH of cancers , is adopted so not sure about FH No drugs or smoking or alcohol use Interval hx -D4 7+3 No complaints 3 episodes of loose watery stools, denies abdominal pain or fever Review of Systems: As noted in HPI. All other systems reviewed and negative. Past Medical & Surgical History Patient Active Problem List Diagnosis ??? Pancytopenia (CMS-HCC) ??? Tonsillitis ??? 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 NEGATIVE PAST MEDICAL HISTORY - SEE PROBLEM LIST Past Surgical History: Procedure Laterality Date ??? Section ??? Cholecystectomy ??? KIDNEY STONES, REMOVAL Past Oncology History Cancer Staging No matching staging information was found for the patient. Oncology History No history exists. Active Treatment Days for Selvin Mckeon (until 09/10/2023) 09/10/2023 ONCOLOGY TREATMENT: IP AML INDUCTION (IDARUBICIN CYTARABINE) (7+3) Day 5, Cycle 1 (Planned) Pre-Medications: dexAMETHasone (Decadron) 8 mg in 0.9% NaCl IV 52 mL IVPB Chemotherapy: cytarabine (Cytosar) 460 mg in 0.9% NaCl IV 504.6 mL infusion Social History Social History Tobacco Use ??? Smoking status: Former Packs/day: 1 Types: Cigarettes Start date: 2004 Quit date: 2010 Years since quittin.9 ??? Smokeless tobacco: Never Substance Use Topics ??? Alcohol use: Yes Comment: occasional Family History Family History Family history unknown: Yes Medications SCHEDULED MEDICATIONS: 0.9% NaCl injection 3 mL, Intracatheter, q8h allopurinol (Zyloprim) tablet 300 mg, Oral, QDAY AFTER BREAKFAST cytarabine (Cytosar) 460 mg in 0.9% NaCl IV 534.6 mL infusion, Intravenous, Once cytarabine (Cytosar) 460 mg in 0.9% NaCl IV 534.6 mL infusion, Intravenous, Once dexAMETHasone (Decadron) 8 mg in 0.9% NaCl IV 57 mL IVPB, Intravenous, Once famotidine (Pepcid) tablet 20 mg, Oral, BID levoFLOXacin (Levaquin) tablet 500 mg, Oral, QDAY medroxyPROGESTERone (Provera) tablet 10 mg, Oral, QDAY perflutren lipid microsphere (Definity) injection 0.5 mL, Intravenous, intra- Procedure multiple posaconazole (Noxafil) tablet 300 mg, Oral, QDAY WITH DINNER valACYclovir (Valtrex) tablet 500 mg, Oral, BID [COMPLETED] cytarabine (Cytosar) 460 mg in 0.9% NaCl IV 534.6 mL infusion, Intravenous, Once [COMPLETED] dexAMETHasone (Decadron) 12 mg in 0.9% NaCl IV 58 mL IVPB, Intravenous, Once [COMPLETED] IDArubicin (Idamycin) injection 27 mg, Intravenous, Once [COMPLETED] palonosetron (Aloxi) injection 0.25 mg, Intravenous, Once [COMPLETED] sodium phosphate 30 mmol IVPB 260 mL, Intravenous, Once CONTINUOUS MEDICATIONS: 0.9% NaCl infusion, Intravenous, Continuous PRN MEDICATIONS: 0.9% NaCl infusion rate and volume, Intravenous, Once PRN 0.9% NaCl injection 1-10 mL, Intracatheter, PRN acetaminophen (Tylenol) tablet 650 mg, Oral, q6h PRN furosemide (Lasix) injection 20 mg, Intravenous, QDAY PRN LORazepam (Ativan) injection 1 mg, Intravenous, q8h PRN LORazepam (Ativan) tablet 1 mg, Oral, q8h PRN melatonin tablet 3 mg, Oral, AT BEDTIME PRN ondansetron (disintegrating) (Zofran ODT) tablet 8 mg, Oral, BID PRN ondansetron (Zofran) injection 8 mg, Intravenous, BID PRN prochlorperazine (Compazine) injection 5 mg, Intravenous, q4h PRN prochlorperazine (Compazine) tablet 10 mg, Oral, q4h PRN rasburicase (Elitek) 3 mg in 0.9% NaCl IV 50 mL bolus, Intravenous, PRN Allergies No Known Allergies OBJECTIVE Physical Exam Vitals: 09/09/23 0241 09/09/23 0252 09/09/23 0638 09/09/23 0921 BP: 124/76 119/77 127/77 129/81 Pulse: 81 83 73 94 Resp: 18 18 18 18 Temp: 98 ??F (36.7 ??C) 97.8 ??F (36.6 ??C) 98 ??F (36.7 ??C) 97.8 ??F (36.6 ??C) SpO2: 99% 99% 99% 100% Weight: Height: Wt Readings from Last 3 Encounters: 09/05/23 118.8 kg (262 lb) ECO General: Well-developed . No acute distress. [...] affect. Laboratory Results Recent Labs Component Name 09/08/23205409/07/23200709/06/23214209/06/23 0026 09/05/23 0909 WBC 0.4* 0.5* 0.6* 1.9* 1.5* RBC 2.06* 2.23* 2.45* 2.46* 2.69* HGB 6.7* 7.2* 7.9* 8.0* 8.7* HCT 18.8* 20.2* 22.0* 22.1* 24.7* MCV 91.3 90.6 89.8 89.8 91.8 MCHC 35.6 35.6 35.9 36.2 35.2 PLTCOUNT 19* 25* 23* 26* 32* NEUTABS 0.23* 0.23* 0.20* 0.18* 0.16* 0.13* 0.15* 0.12* LYMPHABS - - 0.37* 1.58 1.16 Recent Labs Component Name 09/08/23205409/07/23200709/06/23214209/06/23 0026 09/05/23 0909 09/04/23 0527 POTASSIUM 3.9 4.1 4.5 - 4.1 3.7 CO2 20* 21* 21* - 26 27 BUN 14 7 9 - 9 8 CREATININE 0.75 0.60 0.70 - 0.74 0.70 EGFR >90 >90 >90 - >90 >90 GLUCOSE 266* 151* 170* - 95 89 CALCIUM 8.4 8.5 8.7 - 9.1 8.7 MAGNESIUM 2.1 - - - 2.3 2.2 PHOS 1.9* - - - - 4.3 ALT 66* 44 50 - 38 24 AST 62* 33 48* - 38* 25 ALKPHOS 56 59 65 - 62 58 - = values in this interval not displayed. Pathology Results Personally reviewed and summarized above in Hematology & Oncology History RESULT Normal FISH Result inv(3) or t(3;3) RPN1::MECOM Fusion: not detected Deletion 5q: not detected Monosomy 7: not detected Deletion 7q: not detected t(8;21) RUNX1::QTUR4H3 Fusion: not detected 11p15 (NUP98) Rearrangement: not detected 11q23 (KMT2A) Rearrangement: not detected inv(16) or t(16;16) CBFB::MYH11 Fusion: not detected INTERPRETATION There was no evidence of RPN1::MECOM fusion due to 3q21/3q26.2 inversion or translocation, deletion 5q31, monosomy 7, deletion 7q31, RUNX1::URRP8J5 fusion due to translocation (8;21)(q21.3;q22), 11p15 (NUP98) [...] Megakaryocytes are increased in number and show clustering.No lymphoid aggregates are seen. Clot section marrow particles: absent. Clot section morphology: peripheral blood only. Flow Cytometry Summary Concurrent flow cytometry () shows acute myeloid leukemia. Radiology Results Personally reviewed and summarized above in Hematology & Oncology History No results found. ASSESSMENT Selvin Mckeon is a 38 year old female with Pancytopenia presenting with suspected AML # AML , pending cytogenetics and molecular studies # Pancytopenia, neutropenia #Tonsillitis , s/p augmentin -transferred from [facility] after a BMBX showed 78% blasts on bone marrow flow cytometry , final report of biopsy showed 90% blasts consistent with AML -ECHO 59% EF -FISH AML panel WNL PLAN - Started 7 + 3 09/06/23 , D4 today - Daily CBC w/diff, CMP, DIC work up (D- Dimer, Fibrinogen and PT/PTT/INR), Hemolysis (LDH, Retics count, haptoglobin), TLS labs ( uric acid and LDH ) - HIV and hep screen NR -HLA labs and CMV ordered - Bone marrow performed 09/05/23 , f/U on results of MMP Karyotype and Go path - on medroxyprogesterone 10 mg QD for menstrual bleeding as thrombocytopenia, continue for durationof chemo -On levaquin, posaconazole and valtrex for OI prophylaxis - Please obtain a full ID workup (BCx, UA, CXR) if there is concern for infection - Transfusion goals plts > 10 K, Hb >7.0, Fibronogen > 100. Please give both leukoreduced and irratiated blood if needed -Dr Stafford will be primary -Can start imodium for diarrhea if needed, no concern for c diff at this time - Daily weights Thank you for the opportunity to participate in the care of this patient. Hem/Onc consult service will continue to follow closely. Please don't hesitate to contact hem/onc consult fellow via the warping mill operator or AMION if any questions or clarifications. Velma Toney MD, PGY-4 Hematology-Oncology Fellow [facility] I personally evaluated and examined Selvin Mckeon. I confirmed the aguirre elements of of history and physical examination. I also discussed the assessment and plan in detail with the team on rounds and with the patient. I made some modifications to the above note. I fully concur with the above assessment and plan. Maribel Stafford MD [facility] Department of Internal Medicine Division of Hematology Oncology ST REPRESENTATIVE * Cheryl Cronin MD - 09/09/2023 12:40 PM CST Internal Medicine Progress Note 09/09/2023 @ 12:40 PM Admit Date: 09/03/2023 - Length of Stay 6 Day(s) Subjective: - No acute issues or concerns this AM - Tolerating treatment well; fatigued but otherwise well - Believes [facility] paperwork will be in this afternoon; will sign if brought Objective: Temp: [97.5 ??F (36.4 ??C)-98 ??F (36.7 ??C)] 97.8 ??F (36.6 ??C) Pulse: [73-111] 94 Resp: [18-19] 18 BP: (105-150)/(65-95) 129/81 Physical Exam General: NAD. Sitting upright in chair without issue working on laptop. HENT: NC/AT Eyes: Anicteric. Non-injected. Chest: CTAB. No crackles or wheezes. No increased work of breathing. Barone at right chest. Cardiovascular: RRR. No murmurs, rubs, or gallops Abdomen: Soft. NT/ND. Normal BS+. Extremities: No signs of clubbing, cyanosis, or edema. Skin: Warm. Dry. Neurological: Alert; conversational and follows commands. Moves all extremities spontaneously without issue. No focal deficits. Psych: Appropriate mood and affect Grossly unchanged since 09/08/2023 Data reviewed including pertinent labs, imaging, diagnostics. Imaging: IR CENTRAL LINE INSERT TUNNEL Result Date: 09/05/2023 IMPRESSION: Successful Right internal jugular tunneled central venous catheter placement. 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) Pancytopenia (CMS-HCC) Tonsillitis #AML #Pancytopenia - BMB from OSH noting large proportion of blasts; final report noting AML - Repeat BMB today to ensure appropriate collection of all testing required prior to treatment - s/p Barone placement to begin chemo - TTE (09/05) unremarkable PLAN: - D4 of induction with 7 + 3 - Continue allopurinol - f/u results of BMB from 09/05 - Continue OI ppx: Levofloxacin, Posaconazole, Valacyclovir - Continue medroxyprogesterone 10 in setting of thrombocytopenia and menstrual bleeding - Daily labs: CBC??w/diff, CMP, Uric Acid, DIC work up (D- Dimer, Fibrinogen and PT/PTT/INR), Hemolysis (LDH, Retics count, haptoglobin) - Transfuse for plts > 10 K, Hb >7.0, Fibronogen > 100 #Tonsillitis - Noted at OSH and started on abx; continued on Augmentin at [facility] which was completed - Continue to monitor #Disposition - Will likely remained hospitalized for one month for treatment/monitoring - Has FMLA paperwork she would like filled out, visitors to try to print and bring to hospital; will f/u Nutrition: Regular diet DVT Prophylaxis: SCDs Code: Full Dispo: Above The best way to reach me is through Secure Chat. Cheryl Cronin MD 09/09/2023 ST REPRESENTATIVE * Juana Verduzco RN - 09/09/2023 11:27 AM CST Problem: Infection Goal: Signs and symptoms of infections are decreased or avoided Outcome: Progressing Problem: Pain/Discomfort Goal: Patient exhibits reduced pain/discomfort as evidenced by pain scores Outcome: Progressing Problem: Fall Risk Goal: Fall risk and fall related injury risk are minimized (interventions related to the fall risk can be found in the flowsheet documentation) Outcome: Progressing Problem: Hemodynamic Status/Cardiac Output Goal: Patient has stable vital signs and fluid balance Outcome: Progressing ST REPRESENTATIVE * Queat Moreno RN - 09/09/2023 4:34 AM CST Problem: Infection Goal: Signs and symptoms of infections are decreased or avoided Outcome: Progressing Problem: Pain/Discomfort Goal: Patient exhibits reduced pain/discomfort as evidenced by pain scores Outcome: Progressing Problem: Fall Risk Goal: Fall risk and fall related injury risk are minimized (interventions related to the fall risk can be found in the flowsheet documentation) Outcome: Progressing Problem: Hemodynamic Status/Cardiac Output Goal: Patient has stable vital signs and fluid balance Outcome: Progressing ST REPRESENTATIVE * Cheryl Cronin MD - 09/08/2023 5:32 PM CST Internal Medicine Progress Note 09/08/2023 @ 5:32 PM Admit Date: 09/03/2023 - Length of Stay 5 Day(s) Subjective: - No acute issues this AM - Daughter and daughter's father at bedside this AM; all questions answered and care plan reviewed Objective: Temp: [97.5 ??F (36.4 ??C)-98.2 ??F (36.8 ??C)] 97.5 ??F (36.4 ??C) Pulse: [82-98] 82 Resp: [16-18] 18 BP: (114-152)/(60-101) 150/82 Physical Exam General: NAD. Sitting upright in chair without issue working on laptop. HENT: NC/AT Eyes: Anicteric. Non-injected. Chest: CTAB. No crackles or wheezes. No increased work of breathing. Barone at right chest. Cardiovascular: RRR. No murmurs, rubs, or gallops Abdomen: Soft. NT/ND. Normal BS+. Extremities: No signs of clubbing, cyanosis, or edema. Skin: Warm. Dry. Neurological: Alert; conversational and follows commands. Moves all extremities spontaneously without issue. No focal deficits. Psych: Appropriate mood and affect Data reviewed including pertinent labs, imaging, diagnostics. Imaging: IR CENTRAL LINE INSERT TUNNEL Result Date: 09/05/2023 IMPRESSION: Successful Right internal jugular tunneled central venous catheter placement. 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) Pancytopenia (CMS-HCC) Tonsillitis #AML #Pancytopenia - BMB from OSH noting large proportion of blasts; final report noting AML - Repeat BMB today to ensure appropriate collection of all testing required prior to treatment - s/p Barone placement to begin chemo - TTE (09/05) unremarkable PLAN: - D3 of induction with 7 + 3 - Continue allopurinol - f/u results of BMB from 09/05 - Continue OI ppx: Levofloxacin, Posaconazole, Valacyclovir - Continue medroxyprogesterone 10 in setting of thrombocytopenia and menstrual bleeding - Daily labs: CBC??w/diff, CMP, Uric Acid, DIC work up (D- Dimer, Fibrinogen and PT/PTT/INR), Hemolysis (LDH, Retics count, haptoglobin) - Transfuse for plts > 10 K, Hb >7.0, Fibronogen > 100 #Tonsillitis - Noted at OSH and started on abx; continued on Augmentin at [facility] which was completed - Continue to monitor #Disposition - Will likely remained hospitalized for one month for treatment/monitoring - Has FMLA paperwork she would like filled out, visitors to try to print and bring to hospital; will f/u Nutrition: Regular diet DVT Prophylaxis: SCDs Code: Full Dispo: Above The best way to reach me is through Secure Chat. Cheryl Cronin MD 09/08/2023 ST REPRESENTATIVE * Remington Stafford MD - 09/08/2023 1:35 PM CST Images from the original note were not included. HEMATOLOGY/ONCOLOGY INPATIENT PROGRESS NOTE Name: Selvin Mckeon Age: [id number] year old Date of : 1985 Date of Service: 09/08/2023 Reason for Consult: AML HEMATOLOGY & ONCOLOGY HISTORY Principal Diagnosis: AML Current Therapy: 7+ 3 Prior Hematology/Oncology History: None SUBJECTIVE History of Present Illness Chief Complaint: Fatigue, flu like symptoms History of Present Illness: Selvin Mckeon is a 38 year old female with no PMH who presented to [facility] presenting with fevers and flu like symptoms, initially thought to have tonsillitis seen on CT face?. Was treated with vanc cefepime and then CTX but had persistent pancytopenia so bone marrow biopsy was done whichshowed 78% blast on the bone marrow flow cytometry. Pt was transferred for concern for AML Formal bone marrow report still pending from [facility] - Lives alone with daughter ( 11 y old) who is currently staying with her dad No PMH of cancers , is adopted so not sure about FH No drugs or smoking or alcohol use Interval hx -D3 7+3 No complaints Review of Systems: As noted in HPI. All other systems reviewed and negative. 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 Oncology History No history exists. Active Treatment Days for Selvin Mckeon (until 09/09/2023) 09/09/2023 ONCOLOGY TREATMENT: IP AML INDUCTION (IDARUBICIN CYTARABINE) (7+3) Day 4, Cycle 1 (Planned) Pre-Medications: dexAMETHasone (Decadron) 8 mg in 0.9% NaCl IV 52 mL IVPB Chemotherapy: cytarabine (Cytosar) 460 mg in 0.9% NaCl IV 504.6 mL infusion Social History Social History Tobacco Use Smoking status: Former Packs/day: 1 Types: Cigarettes Start date: 2004 Quit date: 2010 Years since quittin.9 Smokeless tobacco: Never Substance Use Topics Alcohol use: Yes Comment: occasional Family History Family History Family history unknown: Yes Medications SCHEDULED MEDICATIONS: 0.9% NaCl injection 3 mL, Intracatheter, q8h allopurinol (Zyloprim) tablet 300 mg, Oral, QDAY AFTER BREAKFAST cytarabine (Cytosar) 460 mg in 0.9% NaCl IV 534.6 mL infusion, Intravenous, Once cytarabine (Cytosar) 460 mg in 0.9% NaCl IV 534.6 mL infusion, Intravenous, Once dexAMETHasone (Decadron) 12 mg in 0.9% NaCl IV 58 mL IVPB, Intravenous, Once famotidine (Pepcid) tablet 20 mg, Oral, BID IDArubicin (Idamycin) injection 27 mg, Intravenous, Once levoFLOXacin (Levaquin) tablet 500 mg, Oral, QDAY medroxyPROGESTERone (Provera) tablet 10 mg, Oral, QDAY palonosetron (Aloxi) injection 0.25 mg, Intravenous, Once perflutren lipid microsphere (Definity) injection 0.5 mL, Intravenous, intra- Procedure multiple posaconazole (Noxafil) tablet 300 mg, Oral, QDAY WITH DINNER valACYclovir (Valtrex) tablet 500 mg, Oral, BID [COMPLETED] cytarabine (Cytosar) 460 mg in 0.9% NaCl IV 534.6 mL infusion, Intravenous, Once [COMPLETED] dexAMETHasone (Decadron) 12 mg in 0.9% NaCl IV 58 mL IVPB, Intravenous, Once [COMPLETED] IDArubicin (Idamycin) injection 27 mg, Intravenous, Once CONTINUOUS MEDICATIONS: 0.9% NaCl infusion, Intravenous, Continuous PRN MEDICATIONS: 0.9% NaCl injection 1-10 mL, Intracatheter, PRN acetaminophen (Tylenol) tablet 650 mg, Oral, q6h PRN furosemide (Lasix) injection 20 mg, Intravenous, QDAY PRN LORazepam (Ativan) injection 1 mg, Intravenous, q8h PRN LORazepam (Ativan) tablet 1 mg, Oral, q8h PRN melatonin tablet 3 mg, Oral, AT BEDTIME PRN ondansetron (disintegrating) (Zofran ODT) tablet 8 mg, Oral, BID PRN ondansetron (Zofran) injection 8 mg, Intravenous, BID PRN prochlorperazine (Compazine) injection 5 mg, Intravenous, q4h PRN prochlorperazine (Compazine) tablet 10 mg, Oral, q4h PRN rasburicase (Elitek) 3 mg in 0.9% NaCl IV 50 mL bolus, Intravenous, PRN Allergies No Known Allergies OBJECTIVE Physical Exam Vitals: 09/07/23200509/08/23 0338 09/08/23 0737 09/08/23 1137 BP: 124/83 114/60 141/82 135/78 Pulse: 85 91 94 82 Resp: 16 16 18 18 Temp: 97.8 ??F (36.6 ??C) 98.2 ??F (36.8 ??C) 98 ??F (36.7 ??C) 97.6 ??F (36.4 ??C) SpO2: 100% 100% 100% 99% Weight: Height: Wt Readings from Last 3 Encounters: 09/05/23 118.8 kg (262 lb) ECO General: Well-developed . No acute distress. [...] affect. Laboratory Results Recent Labs Component Name 09/07/23200709/06/23 2143 09/06/23 0026 09/05/23 0909 WBC 0.5* 0.6* 1.9* 1.5* RBC 2.23* 2.45* 2.46* 2.69* HGB 7.2* 7.9* 8.0* 8.7* HCT 20.2* 22.0* 22.1* 24.7* MCV 90.6 89.8 89.8 91.8 MCHC 35.6 35.9 36.2 35.2 PLTCOUNT 25* 23* 26* 32* NEUTABS 0.23* 0.20* 0.18* 0.16* 0.13* 0.15* 0.12* LYMPHABS - 0.37* 1.58 1.16 Recent Labs Component Name 09/07/23200709/06/23 2143 09/06/23 0026 09/05/23 0909 09/04/23 0527 POTASSIUM 4.1 4.5 3.8 4.1 3.7 CO2 21* 21* 24 26 27 BUN 7 9 12 9 8 CREATININE 0.60 0.70 0.72 0.74 0.70 EGFR >90 >90 >90 >90 >90 GLUCOSE 151* 170* 110 95 89 CALCIUM 8.5 8.7 8.7 9.1 8.7 MAGNESIUM - - - 2.3 2.2 PHOS - - - - 4.3 ALT 44 50 39 38 24 AST 33 48* 35* 38* 25 ALKPHOS 59 65 62 62 58 Pathology Results Personally reviewed and summarized above in Hematology & Oncology History Radiology Results Personally reviewed and summarized above in Hematology & Oncology History No results found. ASSESSMENT Selvin Mckeon is a 38 year old female with Pancytopenia presenting with suspected AML # AML , pending cytogenetics and molecular studies # Pancytopenia, neutropenia #Tonsillitis , s/p augmentin -transferred [facility] after a BMBX showed 78% blasts on bone marrow flow cytometry , final report of biopsy showed 90% blasts consistent with AML -ECHO 59% EF PLAN - Started 7 + 3 09/06/23 , D3 today - Daily CBC w/diff, CMP, DIC work up (D- Dimer, Fibrinogen and PT/PTT/INR), Hemolysis (LDH, Retics count, haptoglobin), TLS labs ( uric acid and LDH ) - HIV and hep screen NR -HLA labs and CMV ordered - Bone marrow performed 09/05/23 , f/U on results of MMP FISH AML Karyotype and Go path - on medroxyprogesterone 10 mg QD for menstrual bleeding as thrombocytopenia, continue for durationof chemo -On levaquin, posaconazole and valtrex for OI prophylaxis - Please obtain a full ID workup (BCx, UA, CXR) if there is concern for infection - Transfusion goals plts > 10 K, Hb >7.0, Fibronogen > 100. Please give both leukoreduced and irratiated blood if needed -Dr Stafford will be primary Thank you for the opportunity to participate in the care of this patient. Hem/Onc consult service will continue to follow closely. Please don't hesitate to contact hem/onc consult fellow via the warping mill operator or AMION if any questions or clarifications. Velma Toney MD, PGY-4 Hematology-Oncology Fellow [facility] I personally evaluated and examined Selvin Mckeon. I confirmed the aguirre elements of of history and physical examination. I also discussed the assessment and plan in detail with the team on rounds and with the patient. I made some modifications to the above note. I fully concur with the above assessment and plan. Maribel Stafford MD [facility] Department of Internal Medicine Division of Hematology Oncology ST REPRESENTATIVE * Juana Verduzco RN - 09/08/2023 9:34 AM CST Problem: Infection Goal: Signs and symptoms of infections are decreased or avoided Outcome: Progressing Problem: Pain/Discomfort Goal: Patient exhibits reduced pain/discomfort as evidenced by pain scores Outcome: Progressing Problem: Fall Risk Goal: Fall risk and fall related injury risk are minimized (interventions related to the fall risk can be found in the flowsheet documentation) Outcome: Progressing Problem: Hemodynamic Status/Cardiac Output Goal: Patient has stable vital signs and fluid balance Outcome: Progressing ST REPRESENTATIVE * Queta Moreno RN - 09/08/2023 5:11 AM CST Problem: Infection Goal: Signs and symptoms of infections are decreased or avoided Outcome: Progressing Problem: Pain/Discomfort Goal: Patient exhibits reduced pain/discomfort as evidenced by pain scores Outcome: Progressing Problem: Fall Risk Goal: Fall risk and fall related injury risk are minimized (interventions related to the fall risk can be found in the flowsheet documentation) Outcome: Progressing Problem: Hemodynamic Status/Cardiac Output Goal: Patient has stable vital signs and fluid balance Outcome: Progressing ST REPRESENTATIVE * Cheryl Cronin MD - 09/07/2023 1:34 PM CST Internal Medicine Progress Note 09/07/2023 @ 1:34 PM Admit Date: 09/03/2023 - Length of Stay 4 Day(s) Subjective: - No acute issues or endorsements this AM - Tolerated starting of treatment well yesterday without issue Objective: Temp: [97 ??F (36.1 ??C)-98.5 ??F (36.9 ??C)] 97 ??F (36.1 ??C) Pulse: [90-97] 96 Resp: [18-20] 18 BP: (98-133)/(56-86) 127/71 Physical Exam General: NAD. Sitting upright in chair without issue working on laptop. HENT: NC/AT Eyes: Anicteric. Non-injected. Chest: CTAB. No crackles or wheezes. No increased work of breathing. Barone at right chest. Cardiovascular: RRR. No murmurs, rubs, or gallops Abdomen: Soft. NT/ND. Normal BS+. Extremities: No signs of clubbing, cyanosis, or edema. Skin: Warm. Dry. Neurological: Alert; conversational and follows commands. Moves all extremities spontaneously without issue. No focal deficits. Psych: Appropriate mood and affect Data reviewed including pertinent labs, imaging, diagnostics. Imaging: IR CENTRAL LINE INSERT TUNNEL Result Date: 09/05/2023 IMPRESSION: Successful Right internal jugular tunneled central venous catheter placement. 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) Pancytopenia (CMS-HCC) Tonsillitis #AML #Pancytopenia - BMB from OSH noting large proportion of blasts; final report noting AML - Repeat BMB today to ensure appropriate collection of all testing required prior to treatment - s/p Barone placement to begin chemo - TTE (09/05) unremarkable PLAN: - D2 of induction with 7 + 3 - Given start of induction therapy will start allopurinol for TLS ppx - f/u results of BMB from 09/05 - Continue OI ppx: Levofloxacin, Posaconazole, Valacyclovir - Continue medroxyprogesterone 10 in setting of thrombocytopenia and menstrual bleeding - Daily labs: CBC??w/diff, CMP, Uric Acid, DIC work up (D- Dimer, Fibrinogen and PT/PTT/INR), Hemolysis (LDH, Retics count, haptoglobin) - Transfuse for plts > 10 K, Hb >7.0, Fibronogen > 100 #Tonsillitis - Noted at OSH and started on abx; [facility] which [facility] - Continue to monitor #Disposition - Will likely remained hospitalized for one month for treatment/monitoring - Has FMLA paperwork she would like filled out, visitors to try to print and bring to hospital; will f/u Nutrition: Regular diet DVT Prophylaxis: SCDs Code: Full Dispo: Above The best way to reach me is through Secure Chat. Cheryl Cronin MD 09/07/2023 ST REPRESENTATIVE * Remington Stafford MD - 09/07/2023 1:18 PM CST Images from the original note were not included. HEMATOLOGY/ONCOLOGY INPATIENT PROGRESS NOTE Name: Selvin Mckeon Age: [age] year old Date of : 1985 Date of Service: 09/07/2023 Reason for Consult: AML HEMATOLOGY & ONCOLOGY HISTORY Principal Diagnosis: AML Current Therapy: 7+ 3 Prior Hematology/Oncology History: None SUBJECTIVE History of Present Illness Chief Complaint: Fatigue, flu like symptoms History of Present Illness: Selvin Mckeon is a 38 year old female with no PMH who presented to [facility] presenting with fevers and flu like symptoms, initially thought to have tonsillitis seen on CT face?. Was treated with vanc cefepime and then CTX but had persistent pancytopenia so bone marrow biopsy was done whichshowed 78% blast on the bone marrow flow cytometry. Pt was transferred for concern for AML Formal bone marrow report still pending from [facility] - Lives alone with daughter ( 11 y old) who is currently staying with her dad No PMH of cancers , is adopted so not sure about FH No drugs or smoking or alcohol use Interval hx -D2 7+3 No complaints Review of Systems: As noted in HPI. All other systems reviewed and negative. 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 Oncology History No history exists. Active Treatment Days for Selvin Mckeon (until 09/08/2023) 09/08/2023 ONCOLOGY TREATMENT: IP AML INDUCTION (IDARUBICIN CYTARABINE) (7+3) Day 3, Cycle 1 (Planned) Pre-Medications: palonosetron (Aloxi) injection 0.25 mg, dexAMETHasone (Decadron) 12 mg in 0.9% NaCl IV 53 mL IVPB Chemotherapy: IDArubicin (Idamycin) injection 27 mg, cytarabine (Cytosar) 460 mg in 0.9% NaCl IV 504.6 mL infusion Social History Social History Tobacco Use Smoking status: Former Packs/day: 1 Types: Cigarettes Start date: 2004 Quit date: 2010 Years since quittin.9 Smokeless tobacco: Never Substance Use Topics Alcohol use: Yes Comment: occasional Family History Family History Family history unknown: Yes Medications SCHEDULED MEDICATIONS: 0.9% NaCl injection 3 mL, Intracatheter, q8h cytarabine (Cytosar) 460 mg in 0.9% NaCl IV 534.6 mL infusion, Intravenous, Once cytarabine (Cytosar) 460 mg in 0.9% NaCl IV 534.6 mL infusion, Intravenous, Once dexAMETHasone (Decadron) 12 mg in 0.9% NaCl IV 58 mL IVPB, Intravenous, Once famotidine (Pepcid) tablet 20 mg, Oral, BID IDArubicin (Idamycin) injection 27 mg, Intravenous, Once levoFLOXacin (Levaquin) tablet 500 mg, Oral, QDAY medroxyPROGESTERone (Provera) tablet 10 mg, Oral, QDAY perflutren lipid microsphere (Definity) injection 0.5 mL, Intravenous, intra- Procedure multiple posaconazole (Noxafil) tablet 300 mg, Oral, QDAY WITH DINNER valACYclovir (Valtrex) tablet 500 mg, Oral, BID [COMPLETED] amoxicillin-clavulanate (Augmentin) tablet 875 mg, Oral, BID [COMPLETED] dexAMETHasone (Decadron) 12 mg in 0.9% NaCl IV 58 mL IVPB, Intravenous, Once [COMPLETED] IDArubicin (Idamycin) injection 27 mg, Intravenous, Once [COMPLETED] palonosetron (Aloxi) injection 0.25 mg, Intravenous, Once CONTINUOUS MEDICATIONS: 0.9% NaCl infusion, Intravenous, Continuous PRN MEDICATIONS: 0.9% NaCl injection 1-10 mL, Intracatheter, PRN acetaminophen (Tylenol) tablet 650 mg, Oral, q6h PRN furosemide (Lasix) injection 20 mg, Intravenous, QDAY PRN LORazepam (Ativan) injection 1 mg, Intravenous, q8h PRN LORazepam (Ativan) tablet 1 mg, Oral, q8h PRN melatonin tablet 3 mg, Oral, AT BEDTIME PRN ondansetron (disintegrating) (Zofran ODT) tablet 8 mg, Oral, BID PRN ondansetron (Zofran) injection 8 mg, Intravenous, BID PRN prochlorperazine (Compazine) injection 5 mg, Intravenous, q4h PRN prochlorperazine (Compazine) tablet 10 mg, Oral, q4h PRN rasburicase (Elitek) 3 mg in 0.9% NaCl IV 50 mL bolus, Intravenous, PRN Allergies No Known Allergies OBJECTIVE Physical Exam Vitals: 09/07/23 0008 09/07/23 0448 09/07/23 0803 09/07/23 1215 BP: 107/60 98/56 125/65 127/71 Pulse: 97 92 90 96 Resp: 18 18 Temp: 98.1 ??F (36.7 ??C) 98.5 ??F (36.9 ??C) 97.7 ??F (36.5 ??C) 97 ??F (36.1 ??C) SpO2: 98% 98% 99% 100% Weight: Height: Wt Readings from Last 3 Encounters: 09/05/23 118.8 kg (262 lb) ECO General: Well-developed . No acute distress. [...] affect. Laboratory Results Recent Labs Component Name 09/06/23214209/06/236 09/05/23 0909 WBC 0.6* 1.9* 1.5* RBC 2.45* 2.46* 2.69* HGB 7.9* 8.0* 8.7* HCT 22.0* 22.1* 24.7* MCV 89.8 89.8 91.8 MCHC 35.9 36.2 35.2 PLTCOUNT 23* 26* 32* NEUTABS 0.20* 0.18* 0.16* 0.13* 0.15* 0.12* LYMPHABS 0.37* 1.58 1.16 Recent Labs Component Name 09/06/23214209/06/236 09/05/23 0909 09/04/23 0527 POTASSIUM 4.5 3.8 4.1 3.7 CO2 21* 24 26 27 BUN 9 12 9 8 CREATININE 0.70 0.72 0.74 0.70 EGFR >90 >90 >90 >90 GLUCOSE 170* 110 95 89 CALCIUM 8.7 8.7 9.1 8.7 MAGNESIUM - - 2.3 2.2 PHOS - - - 4.3 ALT 50 39 38 24 AST 48* 35* 38* 25 ALKPHOS 65 62 62 58 Pathology Results Personally reviewed and summarized above in Hematology & Oncology History Radiology Results Personally reviewed and summarized above in Hematology & Oncology History No results found. ASSESSMENT Selvin Mckeon is a 38 year old female with Pancytopenia presenting with suspected AML # AML , pending cytogenetics and molecular studies # Pancytopenia, neutropenia #Tonsillitis , s/p augmentin -transferred from [facility] after a BMBX showed 78% blasts on bone marrow flow cytometry , final report of biopsy showed 90% blasts consistent with AML -ECHO 59% EF PLAN - Started 7 + 3 09/06/23 , D2 today - Daily CBC w/diff, CMP, DIC work up (D- Dimer, Fibrinogen and PT/PTT/INR), Hemolysis (LDH, Retics count, haptoglobin), TLS labs ( uric acid and LDH ) - HIV and hep screen NR -HLA labs and CMV ordered - Bone marrow performed 09/05/23 , f/U on results of MMP FISH AML Karyotype and Go path - on medroxyprogesterone 10 mg QD for menstrual bleeding as thrombocytopenia, continue for durationof chemo -On levaquin, posaconazole and valtrex for OI prophylaxis - Please obtain a full ID workup (BCx, UA, CXR) if there is concern for infection - Transfusion goals plts > 10 K, Hb >7.0, Fibronogen > 100. Please give both leukoreduced and irratiated blood if needed -Dr Stafford will be primary Thank you for the opportunity to participate in the care of this patient. Hem/Onc consult service will continue to follow closely. Please don't hesitate to contact hem/onc consult fellow via the warping mill operator or AMION if any questions or clarifications. Velma Toney MD, PGY-4 Hematology-Oncology Fellow [facility] I personally evaluated and examined Selvin Mckeon. I confirmed the aguirre elements of of history and physical examination. I also discussed the assessment and plan in detail with the team on rounds and with the patient. I made some modifications to the above note. I fully concur with the above assessment and plan. Maribel Stafford MD [facility] Department of Internal Medicine Division of Hematology Oncology ST REPRESENTATIVE * Juana Verduzco RN - 09/07/2023 12:43 PM CST Problem: Infection Goal: Signs and symptoms of infections are decreased or avoided Outcome: Progressing Problem: Pain/Discomfort Goal: Patient exhibits reduced pain/discomfort as evidenced by pain scores Outcome: Progressing Problem: Fall Risk Goal: Fall risk and fall related injury risk are minimized (interventions related to the fall risk can be found in the flowsheet documentation) Outcome: Progressing Problem: Hemodynamic Status/Cardiac Output Goal: Patient has stable vital signs and fluid balance Outcome: Progressing ST REPRESENTATIVE * Sheron Weber RN - 09/06/2023 10:49 PM CST Problem: Infection Goal: Signs and symptoms of infections are decreased or avoided Outcome: Progressing Problem: Pain/Discomfort Goal: Patient exhibits reduced pain/discomfort as evidenced by pain scores Outcome: Progressing Problem: Fall Risk Goal: Fall risk and fall related injury risk are minimized (interventions related to the fall risk can be found in the flowsheet documentation) Outcome: Progressing ST REPRESENTATIVE * Remington Stafford MD - 09/06/2023 4:53 PM CST Images from the original note were not included. HEMATOLOGY/ONCOLOGY INPATIENT PROGRESS NOTE Name: Selvin Mckeon Age: [id number] year old Date of : 1985 Date of Service: 09/06/2023 Reason for Consult: AML HEMATOLOGY & ONCOLOGY HISTORY Principal Diagnosis: AML Current Therapy: 7+ 3 Prior Hematology/Oncology History: None SUBJECTIVE History of Present Illness Chief Complaint: Fatigue, flu like symptoms History of Present Illness: Selvin Mckeon is a 38 year old female with no PMH who presented to [facility] presenting with fevers and flu like symptoms, initially thought to have tonsillitis seen on CT face?. Was treated with vanc cefepime and then CTX but had persistent pancytopenia so bone marrow biopsy was done whichshowed 78% blast on the bone marrow flow cytometry. Pt was transferred for concern for AML Formal bone marrow report still pending from [facility] - Lives alone with daughter ( 11 y old) who is currently staying with her dad No PMH of cancers , is adopted so not sure about FH No drugs or smoking or alcohol use Interval hx -Started 7 + 3 today, chemo consent obtained -Bone marrow from OSH showed 90% blasts Review of Systems: As noted in HPI. All other systems reviewed and negative. 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 Oncology History No history exists. Active Treatment Days for Selvin Mckeon (until 09/07/2023) 09/06/2023 ONCOLOGY TREATMENT: IP AML INDUCTION (IDARUBICIN CYTARABINE) (7+3) Day 2, Cycle 1 (Started) Pre-Medications: dexAMETHasone (Decadron) 12 mg in 0.9% NaCl IV 58 mL IVPB Chemotherapy: IDArubicin (Idamycin) injection 27 mg, cytarabine (Cytosar) 460 mg in 0.9% NaCl IV 534.6 mL infusion Social History Social History Tobacco Use Smoking status: Former Packs/day: 1 Types: Cigarettes Start date: 2004 Quit date: 2010 Years since quittin.9 Smokeless tobacco: Never Substance Use Topics Alcohol use: Yes Comment: occasional Family History Family History Family history unknown: Yes Medications SCHEDULED MEDICATIONS: 0.9% NaCl injection 3 mL, Intracatheter, q8h amoxicillin-clavulanate (Augmentin) tablet 875 mg, Oral, BID cytarabine (Cytosar) 460 mg in 0.9% NaCl IV 534.6 mL infusion, Intravenous, Once famotidine (Pepcid) tablet 20 mg, Oral, BID levoFLOXacin (Levaquin) tablet 500 mg, Oral, QDAY medroxyPROGESTERone (Provera) tablet 10 mg, Oral, QDAY perflutren lipid microsphere (Definity) injection 0.5 mL, Intravenous, intra- Procedure multiple posaconazole (Noxafil) tablet 300 mg, Oral, QDAY WITH DINNER valACYclovir (Valtrex) tablet 500 mg, Oral, BID [COMPLETED] dexAMETHasone (Decadron) 12 mg in 0.9% NaCl IV 58 mL IVPB, Intravenous, Once [COMPLETED] IDArubicin (Idamycin) injection 27 mg, Intravenous, Once [COMPLETED] palonosetron (Aloxi) injection 0.25 mg, Intravenous, Once [] 0.9% NaCl injection 10 mL, Intracatheter, intra-Procedure multiple [START ON 09/07/2023] cytarabine (Cytosar) 460 mg in 0.9% NaCl IV 534.6 mL infusion, Intravenous, Once [START ON 09/07/2023] dexAMETHasone (Decadron) 12 mg in 0.9% NaCl IV 58 mL IVPB, Intravenous, Once [START ON 09/07/2023] IDArubicin (Idamycin) injection 27 mg, Intravenous, Once CONTINUOUS MEDICATIONS: 0.9% NaCl infusion, Intravenous, Continuous PRN MEDICATIONS: 0.9% NaCl injection 1-10 mL, Intracatheter, PRN acetaminophen (Tylenol) tablet 650 mg, Oral, q6h PRN furosemide (Lasix) injection 20 mg, Intravenous, QDAY PRN LORazepam (Ativan) injection 1 mg, Intravenous, q8h PRN LORazepam (Ativan) tablet 1 mg, Oral, q8h PRN melatonin tablet 3 mg, Oral, AT BEDTIME PRN ondansetron (disintegrating) (Zofran ODT) tablet 8 mg, Oral, BID PRN ondansetron (Zofran) injection 8 mg, Intravenous, BID PRN prochlorperazine (Compazine) injection 5 mg, Intravenous, q4h PRN prochlorperazine (Compazine) tablet 10 mg, Oral, q4h PRN rasburicase (Elitek) 3 mg in 0.9% NaCl IV 50 mL bolus, Intravenous, PRN Allergies No Known Allergies OBJECTIVE Physical Exam Vitals: 09/06/23 0422 09/06/23 0756 09/06/23 1219 09/06/23 1608 BP: 106/66 113/81 145/91 132/86 Pulse: 95 97 107 97 Resp: 18 20 18 19 Temp: 98.6 ??F (37 ??C) 97.9 ??F (36.6 ??C) 98 ??F (36.7 ??C) 98.3 ??F (36.8 ??C) SpO2: 96% 98% 100% 100% Weight: Height: Wt Readings from Last 3 Encounters: 09/05/23 118.8 kg (262 lb) ECO General: Well-developed . No acute distress. [...] affect. Laboratory Results Recent Labs Component Name 09/06/23 0026 09/05/23 0909 09/04/23 0525 WBC 1.9* 1.5* 1.9* RBC 2.46* 2.69* 2.51* HGB 8.0* 8.7* 8.1* HCT 22.1* 24.7* 22.6* MCV 89.8 91.8 90.0 MCHC 36.2 35.2 35.8 PLTCOUNT 26* 32* 35* NEUTABS 0.16* 0.13* 0.15* 0.12* 0.11* 0.21* LYMPHABS 1.58 1.16 1.48 Recent Labs Component Name 09/06/23 0026 09/05/23 0909 09/04/23 0527 POTASSIUM 3.8 4.1 3.7 CO2 24 26 27 BUN 12 9 8 CREATININE 0.72 0.74 0.70 EGFR >90 >90 >90 GLUCOSE 110 95 89 CALCIUM 8.7 9.1 8.7 MAGNESIUM - 2.3 2.2 PHOS - - 4.3 ALT 39 38 24 AST 35* 38* 25 ALKPHOS 62 62 58 Pathology Results Personally reviewed and summarized above in Hematology & Oncology History Radiology Results Personally reviewed and summarized above in Hematology & Oncology History No results found. 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 -ECHO 59% EF PLAN - Starting 7 + 3 09/06/23 , consent obtained - Daily CBC w/diff, CMP, DIC work up (D- Dimer, Fibrinogen and PT/PTT/INR), Hemolysis (LDH, Retics count, haptoglobin) - HIV and hep screen NR -HLA labs and CMV ordered - Bone marrow performed 09/05/23 , f/U on results of MMP FISH AML Karyotype and Go path - on medroxyprogesterone 10 mg QD for menstrual bleeding as thrombocytopenia, continue for durationof chemo -On levaquin, posaconazole and valtrex for OI prophylaxis -complete augmentin course - Please obtain a full ID workup (BCx, UA, CXR) if there is concern for infection - Transfusion goals plts > 10 K, Hb >7.0, Fibronogen > 100. Please give both leukoreduced and irratiated blood if needed -Dr Stafford will be primary Thank you for the opportunity to participate in the care of this patient. Hem/Onc consult service will continue to follow closely. Please don't hesitate to contact hem/onc consult fellow via the warping mill operator or AMION if any questions or clarifications. Velma Toney MD, PGY-4 Hematology-Oncology Fellow [facility] I personally evaluated and examined Selvin Mckeon. I confirmed the aguirre elements of of history and physical examination. I also discussed the assessment and plan in detail with the team on rounds and with the patient. I made some modifications to the above note. I fully concur with the above assessment and plan. Maribel Stafford MD [facility] Department of Internal Medicine Division of Hematology Oncology ST REPRESENTATIVE * Juana Verduzco RN - 09/06/2023 12:18 PM CST Problem: Infection Goal: Signs and symptoms of infections are decreased or avoided Outcome: Progressing Problem: Pain/Discomfort Goal: Patient exhibits reduced pain/discomfort as evidenced by pain scores Outcome: Progressing Problem: Fall Risk Goal: Fall risk and fall related injury risk are minimized (interventions related to the fall risk can be found in the flowsheet documentation) Outcome: Progressing Problem: Hemodynamic Status/Cardiac Output Goal: Patient has stable vital signs and fluid balance Outcome: Progressing ST REPRESENTATIVE * Cheryl Cronin MD - 09/06/2023 12:17 PM CST Internal Medicine Progress Note 09/06/2023 @ 12:17 PM Admit Date: 09/03/2023 - Length of Stay 3 Day(s) Subjective: - No acute issues or endorsements this AM - Barone placed yesterday without complication - Per patient was told that she may be starting chemotherapy today by oncology team; will f/u Objective: Temp: [97.9 ??F (36.6 ??C)-98.6 ??F (37 ??C)] 97.9 ??F (36.6 ??C) Pulse: [95-118] 97 Resp: [12] 20 BP: (106-148)/(52-91) 113/81 Physical Exam General: NAD. Sitting upright in chair without issue. HENT: NC/AT Eyes: Anicteric. Non-injected. Chest: CTAB. No crackles or wheezes. No increased work of breathing. Barone at right chest. Cardiovascular: RRR. No murmurs, rubs, or gallops Abdomen: Soft. NT/ND. Normal BS+. Extremities: No signs of clubbing, cyanosis, or edema. Skin: Warm. Dry. Neurological: Alert; conversational and follows commands. Moves all extremities spontaneously without issue. No focal deficits. Psych: Appropriate mood and affect Data reviewed including pertinent labs, imaging, diagnostics. Imaging: IR CENTRAL LINE INSERT TUNNEL Result Date: 09/05/2023 IMPRESSION: Successful Right internal jugular tunneled central venous catheter placement. 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) Pancytopenia (CMS-HCC) Tonsillitis #AML #Pancytopenia - BMB from OSH noting large proportion of blasts; final report noting AML - Repeat BMB today to ensure appropriate collection of all testing required prior to treatment - s/p Barone placement to begin chemo - TTE (09/05) unremarkable PLAN: - Discuss initiation of treatment with oncology; will f/u any additional labs that may be needed based on regimen selected - f/u results of BMB from 09/05 - Continue OI ppx: Levofloxacin, Posaconazole, Valacyclovir - Continue medroxyprogesterone 10 in setting of thrombocytopenia and menstrual bleeding - Daily labs: CBC??w/diff, CMP, DIC work up (D- Dimer, Fibrinogen and PT/PTT/INR), Hemolysis (LDH, Retics count, haptoglobin) - Transfuse for plts > 10 K, Hb >7.0, Fibronogen > 100 #Tonsillitis - Noted at OSH and started on abx; continued on Augmentin at [facility] - Continue augmentin to final #Disposition - Depending on regimen, will likely required inpatient admission for upwards of one month for induction - Has FMLA paperwork she would like filled out, visitors to try to print and bring to hospital; will f/u Nutrition: Regular diet DVT Prophylaxis: SCDs Code: Full Dispo: Above The best way to reach me is through Secure Chat. Cheryl Cronin MD 09/06/2023 ST REPRESENTATIVE * Chandu Padgett RN - 09/05/2023 6:01 PM CST Problem: Infection Goal: Signs and symptoms of infections are decreased or avoided Outcome: Progressing Problem: Pain/Discomfort Goal: Patient exhibits reduced pain/discomfort as evidenced by pain scores Outcome: Progressing Problem: Fall Risk Goal: Fall risk and fall related injury risk are minimized (interventions related to the fall risk can be found in the flowsheet documentation) Outcome: Progressing ST REPRESENTATIVE * Cheryl Cronin MD - 09/05/2023 4:24 PM CST Internal Medicine Progress Note 09/05/2023 @ 4:30 PM Admit Date: 09/03/2023 - Length of Stay 2 Day(s) Subjective: - No acute issues or endorsements this AM - Seen following BMB; tolerated procedure well - Placement of Barone today to start chemotherapy in future without delay Objective: Temp: [98.1 ??F (36.7 ??C)-98.6 ??F (37 ??C)] 98.1 ??F (36.7 ??C) Pulse: [92-118] 99 Resp: [12-27] 17 BP: (110-130)/(52-91) 118/84 Physical Exam General: NAD. Laying in bed resting flat. HENT: NC/AT Eyes: Anicteric. Non-injected. Chest: CTAB. No crackles or wheezes. No increased work of breathing. Cardiovascular: RRR. No murmurs, rubs, or gallops Abdomen: Soft. NT/ND. Normal BS+. Extremities: No signs of clubbing, cyanosis, or edema. Skin: Warm. Dry. Neurological: Alert; conversational and follows commands. Moves all extremities spontaneously without issue. No focal deficits. Psych: Appropriate mood and affect Data reviewed including pertinent labs, imaging, diagnostics. Imaging: IR CENTRAL LINE INSERT TUNNEL Result Date: 09/05/2023 IMPRESSION: Successful Right internal jugular tunneled central venous catheter placement. 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) Pancytopenia (CMS-HCC) Tonsillitis #AML #Pancytopenia - BMB from OSH noting large proportion of blasts; final report noting AML - Repeat BMB today to ensure appropriate collection of all testing required prior to treatment PLAN: - Triple lumen Barone to be placed per oncology for eventual treatment of AML - f/u results of BMB from today - Continue OI ppx: Levofloxacin, Posaconazole, Valacyclovir - Continue medroxyprogesterone 10 in setting of thrombocytopenia and menstrual bleeding - Daily labs: CBC??w/diff, CMP, DIC work up (D- Dimer, Fibrinogen and PT/PTT/INR), Hemolysis (LDH, Retics count, haptoglobin) - Transfuse for plts > 10 K, Hb >7.0, Fibronogen > 100 #Tonsillitis - Noted at OSH and started on abx; continued on Augmentin at [facility] - Continue augmentin to final Nutrition: Regular diet DVT Prophylaxis: SCDs Code: Full Dispo: Inpatient The best way to reach me is through Secure Chat. Cheryl Cronin MD 09/05/2023 ST REPRESENTATIVE * Velma Toney MD - 09/05/2023 4:00 PM CST Images from the original note were not included. HEMATOLOGY/ONCOLOGY INPATIENT PROGRESS NOTE Name: Selvin Mckeon Age: [age] year old Date of : 1985 Date of Service: 09/05/2023 Reason for Consult: AML HEMATOLOGY & ONCOLOGY HISTORY Principal Diagnosis: Suspected AML Current Therapy: none Prior Hematology/Oncology History: None SUBJECTIVE History of Present Illness Chief Complaint: Fatigue, flu like symptoms History of Present Illness: Selvin Mckeon is a 38 year old female with no PMH who presented to [facility] presenting with fevers and flu like symptoms, initially thought to have tonsillitis seen on CT face?. Was treated with vanc cefepime and then CTX but had persistent pancytopenia so bone marrow biopsy was done whichshowed 78% blast on the bone marrow flow cytometry. Pt was transferred for concern for AML Formal bone marrow report still pending from [facility] - Lives alone with daughter ( 11 y old) who is currently staying with her dad No PMH of cancers , is adopted so not sure about FH No drugs or smoking or alcohol use Interval hx -Underwent BMBX today -underwent port placement today Review of Systems: As noted in HPI. All other systems reviewed and negative. Past Medical & Surgical History Patient Active Problem List Diagnosis ??? 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 NEGATIVE PAST MEDICAL HISTORY - SEE PROBLEM LIST Past Surgical History: Procedure Laterality Date ??? Section ??? Cholecystectomy ??? KIDNEY STONES, REMOVAL Past Oncology History Cancer Staging No matching staging information was found for the patient. Oncology History No history exists. Active Treatment & Therapy Days for Selvin Mckeon (until 09/06/2023) Selvin Mckeon does not have any active plans of the following types: ONCOLOGY TREATMENT Social History Social History Tobacco Use ??? Smoking status: Former Packs/day: 1 Types: Cigarettes Start date: 2004 Quit date: 2011 Years since quittin.9 ??? Smokeless tobacco: Never Substance Use Topics ??? Alcohol use: Yes Comment: occasional Family History Family History Family history unknown: Yes Medications SCHEDULED MEDICATIONS: Followed by 0.9% NaCl injection 10 mL, Intracatheter, intra-Procedure multiple 0.9% NaCl injection 3 mL, Intracatheter, q8h amoxicillin-clavulanate (Augmentin) tablet 875 mg, Oral, BID levoFLOXacin (Levaquin) tablet 500 mg, Oral, QDAY medroxyPROGESTERone (Provera) tablet 10 mg, Oral, QDAY perflutren lipid microsphere (Definity) injection 0.5 mL, Intravenous, intra- Procedure multiple posaconazole (Noxafil) tablet 300 mg, Oral, QDAY WITH DINNER valACYclovir (Valtrex) tablet 500 mg, Oral, BID [COMPLETED] LORazepam (Ativan) injection 0.5 mg, Intravenous, Once [COMPLETED] morphine injection 2 mg, Intravenous, Once [COMPLETED] posaconazole (Noxafil) tablet 300 mg, Oral, BID WC CONTINUOUS MEDICATIONS: PRN MEDICATIONS: 0.9% NaCl injection 1-10 mL, Intracatheter, PRN acetaminophen (Tylenol) tablet 650 mg, Oral, q6h PRN melatonin tablet 3 mg, Oral, AT BEDTIME PRN Allergies No Known Allergies OBJECTIVE Physical Exam Vitals: 09/05/23 1345 09/05/23 1350 09/05/23 1355 09/05/23 1400 BP: 124/52 120/81 110/69 118/84 Pulse: 98 106 97 98 Resp: 17 13 15 18 Temp: SpO2: 100% 100% 100% 100% Weight: 118.8 kg (262 lb) Height: 1.575 m (5' 2 ) Wt Readings from Last 3 Encounters: 09/05/23 118.8 kg (262 lb) ECO General: Well-developed . No acute distress. [...] affect. Laboratory Results Recent Labs Component Name 09/05/23 0909 09/04/23 0525 WBC 1.5* 1.9* RBC 2.69* 2.51* HGB 8.7* 8.1* HCT 24.7* 22.6* MCV 91.8 90.0 MCHC 35.2 35.8 PLTCOUNT 32* 35* NEUTABS 0.15* 0.12* 0.11* 0.21* LYMPHABS 1.16 1.48 Recent Labs Component Name 09/05/23 0909 09/04/23 0527 POTASSIUM 4.1 3.7 CO2 26 27 BUN 9 8 CREATININE 0.74 0.70 EGFR >90 >90 GLUCOSE 95 89 CALCIUM 9.1 8.7 MAGNESIUM 2.3 2.2 PHOS - 4.3 ALT 38 24 AST 38* 25 ALKPHOS 62 58 Pathology Results Personally reviewed and summarized above in Hematology & Oncology History Radiology Results Personally reviewed and summarized above in Hematology & Oncology History No results found. 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 Please give both leukoreduced and irratiated blood if needed -Dr Stafford will be primary Thank you for the opportunity to participate in the care of this patient. Hem/Onc consult service will continue to follow closely. Please don't hesitate to contact hem/onc consult fellow via the warping mill operator or AMION if any questions or clarifications. Velma Toney MD, PGY-4 Hematology-Oncology Fellow [facility] ST REPRESENTATIVE Associated attestation - Doris Avilez MD - 09/05/2023 4:10 PM ARTIST REPRESENTATIVE Attending Physician Supervisory Note I personally interviewed and examined the patient with the head of housekeeping. I confirm Dr. Toney's findings and agree with the assessment and plan as outlined. Doris Avilez MD * Stewart Green RN - 09/05/2023 1:53 PM CST Interventional Radiology Nursing - End Procedure Note Sedation: Versed: 2 mg, Fentanyl: 100 mcg Sedation start time: 1325 hours Procedure start time: 1327 hours Procedure end time: 1353 hours Additional drugs: None Contrast: 0 mL of [id number] Fluoroscopy time: 0.[address] REPRESENTATIVE * Queta Moreno RN - 09/05/2023 5:52 AM CST Problem: Infection Goal: Signs and symptoms of infections are decreased or avoided Outcome: Progressing Problem: Pain/Discomfort Goal: Patient exhibits reduced pain/discomfort as evidenced by pain scores Outcome: Progressing Problem: Fall Risk Goal: Fall risk and fall related injury risk are minimized (interventions related to the fall risk can be found in the flowsheet documentation) Outcome: Progressing Problem: Hemodynamic Status/Cardiac Output Goal: Patient has stable vital signs and fluid balance Outcome: Progressing ST REPRESENTATIVE * Cheryl Cronin MD - 09/04/2023 3:22 PM CST INTERNAL MEDICINE PLAN OF CARE NOTE Spoke with oncology team regarding additional recommendations at this time; ok to continue Augmentin and allow to . Will start OI ppx (Levaquin, Valacyclovir, Posaconazole) and attempt to placeport to start chemo (interventional nephro consult placed and port placement ordered; single-lumen o bladimir'd by oncology fellow) in future. Will also start medroxyprogesterone in setting of menstruationwhile pancytopenic. Planning for repeat BMB in AM. Cheryl Cronin MD AM UPDATE 09/05/2023: Notified by oncology fellow that they have been alerted by nursing that dual lumen port would be preferred; will addend order. Cheryl Cronin MD ST REPRESENTATIVE * Justin Moon RN - 09/04/2023 11:59 AM CST Care Coordination Initial Assessment Anticipated Discharge Date: 10/03/23 Transportation at Discharge: Friend Anticipated level of care at discharge: Home Anticipated level of care provider: None Prior to admission level of care: Home Prior to admit provider: None Patient Goals: Safe return home Plans: No discharge needs identified at this time. Consult Case Management if discharge planning needs arise. Comments: 38 yoF admitted 09/03 for 1. Pancytopenia - suspected AML by bone marrow biopsy from OSH - admission labs per Heme/Onc - willconsult in am for further recs - consent for future transfusion signed - has had 1 u RBC and 2 u plts transfused at OSH prior to coming here. No active bleeding 2. Sinusitis/tonsilittis - complete course antibiotics with po augmentin x 3 more days Lives with: Daughter Physical Limitations: None Requires Assistance With: None Preferred Pharmacy: [facility] #[id number] - [address] [facility] [id number] [address] [address] [address]: [facility] [place] [address] PCP: Nilam Mayers MD Advance Directive: No Advance Directive Information Given: Will be offered upon admission Would you like assistance on completing and executing or revising an Advance Directive?: Yes READMISSION RISK SCORE is 7 at 4:33 PM 09/04/2023. Met with patient Family Support (name and phone): Extended Emergency Contact Information Primary Emergency Contact: Raheem Lai Mobile Relation: Significant other Secondary Emergency Contact: French Rosenthal Mobile Relation: Friend Natural [employer] Field Processing Supervisor needed? No Patient or community health program representative requests care coordination reach out to family or caregiver listed above regarding discharge planning and at time of discharge? No Patient/Family provided with list of resources? No Preferred Provider / High Quality Network List given?: No Reason for provider choice: Pt. choice - Pt. choice Equipment at Home: None List DME pt. requires but does not have.: None Tube Teller Referral: No Will continue to follow. For any questions or needs please contact: [employer] Bl[employer] Press Operator Name/Phone number: Justin Moon RN [phone] ST REPRESENTATIVE * Mary Padilla RN - 09/04/2023 11:57 AM CST Problem: Infection Goal: Signs and symptoms of infections are decreased or avoided Outcome: Progressing Problem: Pain/Discomfort Goal: Patient exhibits reduced pain/discomfort as evidenced by pain scores Outcome: Progressing Problem: Fall Risk Goal: Fall risk and fall related injury risk are minimized (interventions related to the fall risk can be found in the flowsheet documentation) Outcome: Progressing Problem: Hemodynamic Status/Cardiac Output Goal: Patient has stable vital signs and fluid balance Outcome: Progressing ST REPRESENTATIVE * May Marie RN - 09/04/2023 3:08 AM CST Problem: Infection Goal: Signs and symptoms of infections are decreased or avoided Outcome: Progressing Problem: Pain/Discomfort Goal: Patient exhibits reduced pain/discomfort as evidenced by pain scores Outcome: Progressing Problem: Fall Risk Goal: Fall risk and fall related injury risk are minimized (interventions related to the fall risk can be found in the flowsheet documentation) Outcome: Progressing Problem: Hemodynamic Status/Cardiac Output Goal: Patient has stable vital signs and fluid balance Outcome: Progressing ST REPRESENTATIVE documented in this encounter H&P Notes * Graham Beltran MD - 09/04/2023 1:56 AM CST HISTORY & PHYSICAL Admit Date: 09/03/2023 11:48 PM Cc: fatigue This is a 38 year old female with no PMH presents with the following. 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 She went to her local ER and was transferred to [facility] after being found to have pancytopenia. Workup at [facility] including gonzalez CTs revealed tonsillitis/sinusitis for which she was started initially on IV vanc/zosyn then rocephin. Hematology/Oncology was consulted and bone marrow biopsy was done 09/02 which revealed likely AML with 78% blasts on BM flow cytometry. The patient was transferred to [facility] for further care and evaluation. At this time she has no specific complaints. She has been tolerating a diet and her throat has improved. Of note, she has no prior frequent hx of infections. Though she did have covid in June of this year and managed at home. Past History No medications prior to admission. No Known Allergies Past Medical History: Diagnosis Date ??? NEGATIVE PAST MEDICAL HISTORY - SEE PROBLEM LIST Past Surgical History: Procedure Laterality Date ??? Section ??? Cholecystectomy ??? KIDNEY STONES, REMOVAL Social History Tobacco Use ??? Smoking status: Former Packs/day: 1 Types: Cigarettes Start date: 2004 Quit date: 2010 Years since quittin.9 ??? Smokeless tobacco: Never Substance Use Topics ??? Alcohol use: Yes Comment: occasional Fam Hx: none Review of Systems A 10 point comprehensive review of systems was done and all positives and pertinent negatives listed below. Review of Systems Constitutional: Positive for malaise/fatigue. Negative for fever. HENT: Positive for sore throat. Eyes: Negative for blurred vision. Respiratory: Negative for cough and shortness of breath. Cardiovascular: Negative for chest pain. Gastrointestinal: Positive for diarrhea, nausea and vomiting. Negative for abdominal pain. Genitourinary: Negative for dysuria. Musculoskeletal: Positive for myalgias. Negative for falls. Skin: Negative for rash. Neurological: Negative for dizziness, loss of consciousness and headaches. Endo/Heme/Allergies: Does not bruise/bleed easily. Physical Exam Patient Vitals for the past 8 hrs: BP Temp Temp src Pulse Resp SpO2 Height Weight 09/03/23 2351 127/83 98.4 ??F (36.9 ??C) Oral 93 18 98 % 1.575 m (5' 2 ) 119 kg (262 lb 6.4 oz) Intake/Output Summary (Last 24 hours) at 09/04/2023 0156 Last data filed at 09/04/2023 0028 Gross per 24 hour Intake 0 ml Output 400 ml Net -400 ml General appearance: alert, cooperative, no distress Head: normocephalic, without trauma Throat: no mucous membrane abnormalities Neck: no masses Lungs: breath sounds normal and symmetric; no rales or wheezes Heart: regular rate and rhythm, normal S1 and S2, without murmurs, gallops or rubs Abdomen: soft without mass, non-tender, with normal bowel sounds Musculoskeletal: 1+ edema Neurologic: no gross motor/sensory deficits Skin: no rashes Data Review OSH labs - wbc 2.2 with 90% lymphs, 8% PMNs and 1% blasts Hgb 8.3 plt 42 Na 137 K 3.8 BUN 7 Creatinine 0.7 CO2 - 27 Mg 1.9 Covid/flu/rsv swab negative CRP 5.8 ESR > 140 Lactic 1.2 TSH 0.78 Urine hcg negative RPR/HIV/Hepatitis panel negative B12 848 Throat cx - group C strep Tyrrell negative CT neck/sinuses - tonsillitis and mild sinusitis CT chest/abd/pelvis- no acute process U/S - liver steatosis INR 1.1 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 Pancytopenia - suspected AML by bone marrow biopsy from OSH - admission labs per Heme/Onc - willconsult in am for further recs - consent for future transfusion signed - has had 1 u RBC and 2 u plts transfused at OSH prior to coming here. No active bleeding 2. Sinusitis/tonsilittis - complete course antibiotics with po augmentin x 3 more days dispo - inpatient ST REPRESENTATIVE documented in this encounter Procedure Notes * Remington Stafford MD - 10/01/2023 4:12 PM CSTProcedure(s): BONE MARROW BIOPSY Pre-Procedure Diagnose(s): 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sion (HCC) PROCEDURE: BONE MARROW ASPIRATION AND BIOPSY The patient was identified and time out was performed. The patient was placed in the left lateral recumbent position. The site (R posterior iliac crest) was identified and marked. The area was prepped and draped in sterile fashion. The area was numbed with 15 mL 1% Lidocaine. Incision was made and Jamshidi was inserted. Aspirate was performed. The needle was removed and reinserted at a separate site with separate incision. Core biopsy was obtained x 1. The needle was removed and the area (R posterior iliac spine) was dressed in sterile fashion. EBL: 5 mL Complications: None Specimens: Aspirate and core biopsy Dr. Stafford was present for aguirre portions of the procedure. Tiana Burciaga, PGY-4 Hematology/Oncology Fellow [facility] I personally supervised the entire procedure for Selvin Mckeon , I confirmed the the indication andinformed consent. The procedure was completed with no immediate complication. Maribel Stafford MD [facility] Department of Internal Medicine Division of Hematology Oncology ST REPRESENTATIVE Anita Cadet MD - 09/19/2023 11:31 AM CST PROCEDURE: BONE MARROW ASPIRATION AND BIOPSY The patient was identified and time out was performed. The site was identified and marked. The areawas prepped and draped in sterile fashion. The area was numbed with 10 mL 1% Lidocaine. Incision was made and Jamshidi was inserted. Aspirate was performed. The needle was removed and reinserted at aseparate site with separate incision. Core biopsy was obtained . The needle was removed and the area (posterior iliac spine) was dressed in sterile fashion. EBL: 10mL Complications: none Specimens: Aspirate and core biopsy Dr. Rivera was present for the the entire procedure. Anita Rios PGY-4 Hematology/Oncology Fellow [facility] ST REPRESENTATIVE Associated attestation - Abrahan Rivera MD - 09/19/2023 4:45 PM ARTIST REPRESENTATIVE I was present for the aguirre elements of the procedures. Abrahan Rivera MD * Velma Toney MD - 09/05/2023 4:04 PM CST PROCEDURE: BONE MARROW ASPIRATION AND BIOPSY The patient was identified and time out was performed. TheR PSIS site was identified and marked. The area was prepped and draped in sterile fashion. The area was numbed with 15 mL 1% Lidocaine. Incision was made and Aspirate needle was inserted. Aspirate was performed. The needle was removed and separate site separate incision was made and Core needle reinserted. Core biopsy was obtained . The needle was removed and the area (posterior iliac spine) was dressed in sterile fashion. EBL: 2 mL Complications: none Specimens: Aspirate and core biopsy Dr. Avilez was present for the aguirre and critical portions of the procedure. Bed rail up and lower the position of bed after the procedure. Advised to lay down on bed for 1 hr. Velma Toney MD, PGY-4 Hematology-Oncology Fellow [facility] ST REPRESENTATIVE Associated attestation - Doris Avilez MD - 09/05/2023 4:10 PM ARTIST REPRESENTATIVE I was present in person to supervise during the aguirre elements of the procedure. Doris Avilez MD * Maria G Mortensen MD - 09/05/2023 2:06 PM CST Brief Procedure Note - Interventional Nephrology ?? Selvin Mckeon 1985 ?? Procedure: Barone Catheter Placement [facility] Clinical Orthoptist: Maria G Mortensen MD Cvt Rn: Jakub Eller MD ?? Complications: None ?? Barone catheter ok to use Full procedure note and images in Synapse and EPIC (Results/Interventional) Dr.Posan Bryson Mortensen Interventional Nephrology Attending [facility] 12/22/23 2:[address] REPRESENTATIVE * Maria G Mortensen MD - 09/05/2023 2:05 PM CST IP Sedation Post Date/Time: 09/05/2023 2:06 PM Performed by: Maria G Mortensen Authorized by: [...] is Normalthermic Patient's pain level is: None 09/05/2023 2:06 PM Maria G Mortensen MD ST REPRESENTATIVE * Jakub Eller MD - 09/05/2023 11:22 AM CST [facility] Intervention Nephrology IP Sedation Pre Date/Time: 09/05/2023 11:22 AM Performed by: Jakub Eller Authorized by: Maria G Mortensen Unit: IR [...] alternatives with patient, family members or patient community health program representative: Yes Attestation: I have reviewed the immediate pre-procedure vital signs: Yes Patient reports or my clinical evaluation indicates there have been no changes in the patient's condition prior to the start of the procedure: Yes Intra-Procedure Patient is currently here for Barone tunneled catheter placement Jakub Eller MD Intervention Nephrology Fellow ST REPRESENTATIVE documented in this encounter Consult Notes * Axel Rodriguez MD - 10/02/2023 7:57 AM CSTAssociated Order(s): IP CONSULT TO NEUROLOGY Neurology Consult Note/History & Physical Patient: Selvin Mckeon Age: [age] year old Admission Date and Time: 09/03/2023 Subjective Reason for consult/Chief Complaint: Concern for IIH History of Presenting Illness: Selvin Mckeon is a 38 year old female w/o any significant PMH who presented as an OSH transfer from [facility] for newly diagnosed AML now undergoing 7+3 induction therapy. Patient BMBx at [facility] showed 78% blasts. Patient was transferred for induction therapy.Heme/onc was consulted and 7+3 was started. Patient also noted to have visual changes, MRI brain and orbits was done. This showed partial empty sella w/ concern for possible IIH. Ophthalmology was consulted and found patient to have 3-4 optic disc edema w/ hemorrhage showing concern for leukemic infiltrate vs IIH. Patient underwent LP w/ IT cytarabine 100mg on 10/01, no opening pressure was measured. Cytologies were sent and pending. 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 Patient started on diamox 500mg BID w/ plans for uptitration. Neurology now consulted due to the concern for IIH. Past Medical History No history on file. Past Medical History: Diagnosis Date NEGATIVE PAST MEDICAL HISTORY - SEE PROBLEM LIST Past Surgical History: Procedure Laterality Date Section Cholecystectomy KIDNEY STONES, REMOVAL Allergies No Known Allergies Family History FMHx: Family history has been reviewed and is non contributory Social History Social history has been reviewed and is non contributory to current case. Review of Systems General - Denies changes in weight or appetite ENT - Denies dental or swallowing difficulties Cardiac - Denies chest pain or palpitations Pulmonary - Denies shortness of breath, cough, or sputum production Gastrointestinal - Denies abdominal pain or changes in bowel habits Genitourinary - Denies changes in bladder habits Endocrine - Denies heat or cold intolerance Musculoskeletal - Denies myalgias or arthralgias Hematological - Denies history of malignancy or blood abnormalities Neurological - See HPI Objective BP 137/92 (BP Cuff Size: A) Pulse 102 Temp 97.6 ??F (36.4 ??C) (Oral) Resp 18 Ht 1.575 m (5' 2 ) Wt 114.9 kg (253 lb 6.4 oz) SpO2 97% Temp (30hrs) Max:97.9 ??F (36.6 ??C) Body mass index is 46.35 kg/m??. Exam: General: Con - NAD, afebrile Heent - NCAT, MMM, anicteric Neck - No JVD, LAD, trachea midline CV - RRR for age, normal s1/s2, no m/r/g Pulm - CTAB, no w/r/r Abd - BS+, soft, NTND Ext: No c/c/e, 2+ dpp, normal ROM Cortical Function Mental Status Awake, alert, follows commands Orientation Person, place, time, and situation Language Fluency intact, comprehension intact, repetition intact Visual Hurt Intact bilaterally to confrontation Neglect No visual neglect noted, no tactile neglect noted Cranial Nerves II Pupils 4 mm and bilaterally reactive to light. Fundoscopic exam not performed. VIII Hearing is intact bilaterally to finger rub. III/IV/ Extraocular muscles intact. No diplopia, ptosis, nystagmus or convergence abnormalities noted. IX/X Palate elevated symmetrically without phonation abnormalities noted. V Facial sensation symmetric to light touch and intact bilaterally. Corneal reflex not examined. XIHead turning and shoulder shrug are intact. VII No facial palsy noted. XII Tongue is midline with normal movements and no atrophy noted. Motor Function Movement No abnormalities noted Bulk No abnormalities noted Tone No abnormalities noted Proximal Upper Distal Upper Proximal Lower Distal Lower Right 5/5 5/5 5/5 5/5 Left 5/5 5/5 5/5 5/5 Muscle Stretch Reflexes BI TRI BR PAT ACH TOES Right 2 2 2 2 2 Down Left 2 2 2 2 2 Down Sensory Light Touch Symmetric and intact bilaterally Noxious Stimuli Symmetric and intact bilaterally Temperature Not tested Pallesthesia Not tested Cerebellar FNF HOWIE HKS Right Intact Deferred Deferred Left Intact Deferred Deferred Gait Deferred Labs: Results for orders placed or performed during the hospital encounter of 09/03/23 (from the past 24 hour(s)) FLOW CYTOMETRY BODY FLUID Result Value Ref Range Case Report Flow Cytometry Case: [id number] Authorizing Provider: Umair Tan MD Collected: 10/01/2023 10:03 AM Ordering Location: [facility] Received: 10/01/2023 11:11 AM Pathologist: Beverly Ferro MD Specimen: CSF Tube 4 Final Diagnosis Cerebrospinal fluid, flow cytometric immunophenotyping: - Inadequate cellularity for analysis Flow Cytometry Interpretation A cytospin prepared from the flow cytometry specimen has been reviewed for automotive quality manager purposes. The specimen is essentially acellular. Flow Cytometry Results Too few hematopoietic cells for flow cytometric analysis. Client Specimen ID # [id number] Reason for test Abnormal imaging of central nervous system Pathologist Location at [facility] Disclaimer Test performed at [facility], [address] [place] [address], [id number]. *The established laboratory minimum viability is 70%. [...] necessary. This test is used for clinical purposes.It should not be regarded as investigational or for research. This laboratory is regulated under the Clinical Laboratory Improvement Amendments of 1998 (CLIA) as a qualified to perform high complexity clinical testing. Embedded Images GLUCOSE - POINT OF CARE Result Value Ref Range Glucose WB/POC 83 70 - 115 mg/dL Specimen Type Venous GLUCOSE - POINT OF CARE Result Value Ref Range Glucose WB/POC 89 70 - 115 mg/dL Specimen Type Venous GLUCOSE - POINT OF CARE Result Value Ref Range Glucose WB/POC 91 70 - 115 mg/dL Specimen Type Cap Fingerstick COMPREHENSIVE METABOLIC PANEL Result Value Ref Range BUN <5 (L) 7 - 26 mg/dL Creatinine 0.53 (L) 0.56 - 0.96 mg/dL Sodium 142 136 - 145 mmol/L Potassium 3.5 3.5 - 4.5 mmol/L Chloride 113 (H) 98 - 107 mmol/L CO2 21 (L) 22 - 29 mmol/L Glucose 95 70 - 115 mg/dL Calcium 8.4 8.4 - 10.2 mg/dL Protein Total 5.9 (L) 6.0 - 8.3 g/dL Albumin 2.6 (L) 3.4 - 5.0 g/dL Bilirubin Total 0.3 0.2 - 1.2 mg/dL Alkaline Phosphatase 58 40 - 150 U/L ALT 29 5 - 55 U/L AST 38 (H) 5 - 34 U/L Anion Gap 8 6 - 16 BUN/Creatinine Ratio <9 7 - 23 Osmolality Calculated <291 275 - 295 mOsm/kg Albumin/Globulin Ratio 0.8 (L) 1.1 - 2.3 eGFR by CKD-EPI >90 >=90 mL/min/1.73 m2 MAGNESIUM BLOOD Result Value Ref Range Magnesium 2.0 1.6 - 2.6 mg/dL PHOSPHORUS BLOOD Result Value Ref Range Phosphorus 2.6 (L) 2.9 - 5.1 mg/dL CBC W AUTO DIFFERENTIAL Result Value Ref Range WBC 4.1 4.0 - 10.7 x10E9/L RBC Count 2.36 (L) 3.90 - 5.20 x10E12/L Hemoglobin 7.3 (L) 11.9 - 15.8 g/dL Hematocrit 21.5 (L) 34.8 - 46.1 % MCV 91.1 80.0 - 98.0 fL MCH 30.9 26.7 - 33.6 pg MCHC 34.0 31.7 - 36.3 g/dL RDW-CV 14.2 11.3 - 14.8 % Platelet Count 110 (L) 150 - 420 x10E9/L MPV 11.4 7.8 - 11.4 fL Preliminary Absolute Neutrophil 1.06 (L) 1.60 - 7.50 x10E9/L NRBC 1.9 (H) <=0.0 /100 WBC FIBRINOGEN ACTIVITY Result Value Ref Range Fibrinogen Clauss 367 200 - 400 mg/dL DIFFERENTIAL MANUAL Result Value Ref Range Neutrophil % 47 41 - 74 % Lymphocyte % 27 17 - 47 % Monocyte % 19 (H) 3 - 11 % Eosinophil % 1 0 - 7 % Metamyelocyte % 3 (H) 0% % Myelocyte % 3 (H) 0% % Neutrophil Absolute 1.93 1.60 - 7.50 x10E9/L Lymphocyte Absolute 1.11 1.00 - 4.40 x10E9/L Monocyte Absolute 0.78 0.15 - 1.00 x10E9/L Eosinophil Absolute 0.04 0.00 - 0.60 x10E9/L RBC Morphology REVIEWED Smudge Cells PRESENT (Abnormal) (none) Large Platelets PRESENT (Abnormal) (none) Neuroimaging: Assessment and Plan: Selvin Mckeon is a 38 year old female w/o any significant PMH [facility] now undergoing 7+3 induction therapy. Now w/ concern for IIH vs leukemic infiltrate of retina. #Elevated ICP w/ concern for IIH -Patient w/ partial empty sella on MRI w/ concern for IIH -Although very rare AML can present w/ isolated intracranial hypertension and has been reported w/ ENVIRONMENTAL LABORATORY TECHNICIAN relapse of AML. Please see the following study: https://www.ncbi.nlm.nih.gov/pmc/articles/KAC2698604/#:~:text=AML%20presenting%2 0with%20isolated%20intracranial,presenting%20as%20IIH%20with%20papilledema -Would recommend stopping methylprogesterone when able as this can lead to increased ICP -Ensure patient is not taking any Vitamin A and does not take any going forward -Patient needs repeat LP w/ opening pressure measured. At that time please send routine labs glucose, protein, cell count, meningitis panel, gram stain -Please obtain MRV brain to r/o cavernous sinus thrombosis -Agree w/ diamox w/ uptitration Will be discussed with General Neurology Attending Physician, Dr. Michael Mitchell, DO Internal Medicine, PGY-3 Pager [phone] 10/02/2023 8:03 AM . I have seen and examined the patient with the resident and I agree with the findings and plan of care as documented by the resident. Date of Service: 10/03/2023 History 38-year-old WF with newly diagnosed AML post chemo therapy. Presents with headaches and blurry vision and diagnosed by ophthalmology as disc edema and leukemic infiltrates of the retina. Has received intra thecal cytosine arabinoside but CSF opening pressure was not measured and CSF is alsonot sent for labs. Examination. Has high BMI. Awake alert oriented x 3. Nonfocal examination. Retinal findings as mentioned by ophthalmology. MRI brain shows empty sella. MRV does not show venous sinus thrombosis Diagnosis. AML postchemotherapy and intrathecal cytosine arabinoside. Leukemic infiltrates of the retina. Possible IIH. There are case reports of AML associated IIH [see reference above]. Plan. Recommend repeat LP with opening pressure and to send for cells, protein and leukemic cells. If the opening pressure is high more than 20 cm CSF recommend to treat with Diamox 500 mg p.o. twicedaily Will follow Please see resident notes for details Axel Rodriguez MD Attending Physician, Neurology ST REPRESENTATIVE * Sivakumar Bhatt MD - 09/30/2023 11:54 PM CST Neurosurgery Consult Note Name: Selvin Mckeon : 1985 Date of Admission:09/03/2023 Date of Consult:09/30/2023 11:54 PM Time of Evaluation: 8:00pm Chief Complaint (CC): SAH HISTORY OF PRESENT ILLNESS (HPI): Patient is a 38 year old female with past medical history including AML. During workup for extent of disease, CT head obtained which revealed incidentl right central sulcus small volume SAH. CTA pending. Patient denies headache, nausea, vomiting, numbness, tingling, weakness, or seizures. The patient's medications include no anticoagulation or antiplatelets. Past Medical History: Diagnosis Date ??? NEGATIVE PAST MEDICAL HISTORY - SEE PROBLEM LIST Past Surgical History: Procedure Laterality Date ??? Section ??? Cholecystectomy ??? KIDNEY STONES, REMOVAL No Known Allergies Current Medications medroxyPROGESTERone (Provera) 10 MG tablet Take 1 (one) tablet by mouth once daily Reasons: Symptomatic Variation from Normal Periods, secondary to thrombocytopenia with chemotherapy pantoprazole EC (Protonix) 40 MG tablet Take 1 (one) tablet by mouth once daily posaconazole (Noxafil) 100 MG tablet Take 3 (three) tablets by mouth daily with dinner valACYclovir (Valtrex) 500 MG tablet Take 1 (one) tablet by mouth 2 times daily Current Facility-Administered Medications Medication ??? 0.9% NaCl infusion rate and volume ??? 0.9% NaCl injection 3 mL And ??? 0.9% NaCl injection 1-10 mL ??? acetaminophen (Tylenol) tablet 650 mg ??? ALPRAZolam (Xanax) tablet 0.25 mg ??? dextrose 10 % IV bolus Or ??? dextrose 10 % IV bolus Or ??? glucagon (Glucagen) injection 1 mg ??? dicyclomine (Bentyl) tablet 20 mg ??? docusate sodium (Colace) solution 50 mg ??? famotidine (Pepcid) tablet 20 mg ??? gadobutrol (Gadavist) injection ??? glucose (Diabetic Use) oral gel ??? guaiFENesin (Robitussin) solution 10 mL ??? heparin lock flush injection 500 Units ??? insulin aspart (NovoLOG) pen 0-6 Units ??? iopamidol (Isovue 370) 76 % contrast ??? medroxyPROGESTERone (Provera) tablet 10 mg ??? melatonin tablet 3 mg ??? ondansetron (disintegrating) (Zofran ODT) tablet 8 mg ??? ondansetron (Zofran) injection 8 mg ??? oxyCODONE (immediate release) (Roxicodone) tablet 5 mg ??? perflutren lipid microsphere (Definity) injection 0.5 mL ??? prochlorperazine (Compazine) injection 5 mg ??? simethicone (Mylicon) chew tablet 80 mg ??? valACYclovir (Valtrex) tablet 500 mg Social History Tobacco Use ??? Smoking status: Former Packs/day: 1 Types: Cigarettes Start date: 2004 Quit date: 2011 Years since quittin.0 ??? Smokeless tobacco: Never Substance Use Topics ??? Alcohol use: Yes Comment: occasional Family History Family history unknown: Yes REVIEW OF SYSTEMS Deferred PHYSICAL EXAM BP 129/83 Pulse 107 Temp 97.8 ??F (36.6 ??C) Resp 20 Ht 1.575 m (5' 2 ) Wt 116.5 kg (256 lb 12.8 oz) SpO2 99% General: NAD Neuro: GCS: 15 (E4V5M6), A&Ox4; PERRL, EOMI, face symmetric, tongue midline, sternocleidomastoid strong, follows commands x4 with 5/5 strength throughout, sensation intact to light touch, eureflexic LABORATORY Recent Labs Component Name 09/30/232008 WBC 4.1 HGB 7.1* HCT 20.4* PLTCOUNT 97* Recent Labs Component Name 09/30/232008 NA 147* POTASSIUM 3.3* CO2 23 BUN 6* CREATININE 0.56 GLUCOSE 112 Recent Labs Component Name 09/13/232051 INR 1.0 Ethanol: Lab results smartLinks are not currently available RADIOLOGY CT: FINDINGS: There is redemonstration of a small amount of subarachnoid hemorrhage in the right central sulcus. The ventricles are of normal size, shape, and morphology. The basilar cisterns are patent. No mass effect or midline shift is seen. The mejia-white matter differentiation is normal. No acute calvarial fracture is identified. The orbits appear normal. There is mild paranasal sinus disease. The mastoid air cells are clear. No soft tissue abnormality is identified. ? IMPRESSION: ?? Redemonstration of a tiny amount of subarachnoid hemorrhage in the right central sulcus. Assessment: 38 year old female with AML, NSGY consulted for small volume SAH in right central sulcus. Please obtain repeat CT head and CTA as there is no hx of trauma. OK for diet and activity. Case discussed with Dr. Lomeli. Sivakumar Bhatt MD 09/30/2023 11:[address] REPRESENTATIVE * Abrahan Villareal MD - 09/30/2023 5:15 PM CSTAssociated Order(s): IP CONSULT TO RADIATION ONCOLOGY Images from the original note were not included. Brief Consult Note Department of Radiation Oncology [facility] ENCOUNTER DATE: 09/03/2023 SEEN on: 09/30/2023 PATIENT IDENTIFICATION Selvin Mckeon 1985 Diagnosis: AML with suspect of leukemic infiltration into the eyes Autopopulated diagnosis: 1. 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 Tonsillitis 3. Bloating 4. Tachycardia 5. Sinus tachycardia 6. Acute cough 7. Abnormal imaging of central nervous system Referring Physicians: MD Dr Joce Conteh MD - ophtho Primary Care Physician: Nilam Mayers MD HISTORY: Selvin Mckeon is a 38 year old who presented with ancytopenia and finding on BMBx of 09/02/2023 forAML. She is receiving 7+3 cytarabine and idarubicin. She has seen floaters in her vision and noted for 3 days in the right eye. Ophthalmology has suspect this may represent her leukemia. 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 On an MRI of the brain and orbits of 09/29/2023 the patient was found to have some artifacts with motion but no clearly seen leukemic masses or infiltrates. She was observed to have a lack of FLAIR suppression along the cerebral sulci without susceptibility artifact. It is not clear what this represents and may be more artifactual. There were no areas of abnormal contrast enhancement noted Past Medical History: Diagnosis Date ??? NEGATIVE PAST MEDICAL HISTORY - SEE PROBLEM LIST Prior irradiation: none Past Surgical History: Procedure Laterality Date ??? Section ??? Cholecystectomy ??? KIDNEY STONES, REMOVAL Social History Socioeconomic History ??? Marital status: [...] No Stress: No Stress Concern Present (09/06/2023) [place] [employer] - Occupational Stress Questionnaire ??? Feeling of Stress : Only a little Housing Stability: Low Risk (09/06/2023) Housing Stability Vital Sign ??? Unable to Pay for Housing in the Last Year: No ??? Number of Places Lived in the Last Year: 1 ??? Unstable Housing in the Last Year: No ALLERGIES: No Known Allergies Current Outpatient Medications: ??? medroxyPROGESTERone (Provera) 10 MG tablet, Take 1 (one) tablet by mouth once daily Reasons: Symptomatic Variation from Normal Periods, secondary to thrombocytopenia with chemotherapy, Disp: 30 tablet, Rfl: 0 ??? pantoprazole EC (Protonix) 40 MG tablet, Take 1 (one) tablet by mouth once daily, Disp: 30 tablet, Rfl: 4 ??? posaconazole (Noxafil) 100 MG tablet, Take 3 (three) tablets by mouth daily with dinner, Disp: 90 tablet, Rfl: 2 ??? valACYclovir (Valtrex) 500 MG tablet, Take 1 (one) tablet by mouth 2 times daily, Disp: 60 tablet, Rfl: 4 PHYSICAL EXAMINATION: BP 120/90 Pulse 105 Temp 97.6 ??F (Oral) Resp 20 Ht 1.575 m (5' 2 ) Wt 116.5 kg (256 lb 12.8 oz) SpO2 98% KPS=90 General: anicteric, alert She has noticed the floaters in the right eye vision more laterally and as a line as well as a lefteye vision more medial central and as a superior to inferior line. There is no loss of vision. Hervisual hurt are intact grossly. There is no scleral injection. Verbally appropriate PATHOLOGY: 09/02/2023: Bone marrow biopsy at [facility] which revealed 78% blasts likely AML. Final Diagnosis Bone marrow, aspirate, clot section, and core biopsy: - Acute myeloid leukemia, NOS - See description. ?? Peripheral blood smear: - Pancytopenia, marked. - Circulating blasts 09/05/2023: Final Diagnosis Bone marrow, flow cytometric immunophenotypic analysis: - ??Acute myeloid leukemia. - ??See interpretation. 09/19/2023: Final Diagnosis Bone marrow, core biopsy and aspirate: - No morphologic evidence of residual acute myeloid leukemia in a markedly hypocellular bone marrow(5% cellular) Final Diagnosis Bone marrow, flow cytometric immunophenotypic analysis: - Markedly paucicellular marrow with no significant blast population detected - See interpretation RADIOLOGY: CT HEAD WO CONTRAST Result Date: 09/30/2023 IMPRESSION: Redemonstration of a tiny amount of subarachnoid hemorrhage in the right central sulcus. These findings were discussed in detail with the patient's care provider, Dr. Tan by Dr. Sanchez via telephone at 4:43 PM on 09/30/2023 with readback comprehension and verification. Report dictated by Sivakumar Garrido DO (Video Arcade Manager). Romie Bartholomew MD have personally reviewed and interpreted this examination/study. > Interpreting Provider: Romie Sanchez MD on 09/30/2023 4:43 PM MRI ORBITS OR FACE WWO CONTRAST Result Date: 09/30/2023 IMPRESSION: 1.There is lack of FLAIR suppression [...] partially empty sella appearance could be normal variant,however could also be seen in the setting of idiopathic intracranial hypertension. The report was drafted by Mary Muir MD (Video Arcade Manager). Preliminary findings were discussed in detail with the patient's care provider, Dr. Tan by Dr. Muir via telephone at 11:03 AM on 09/30/2023 with readback comprehension and verification. Sara Bartholomew MD have personally reviewedand interpreted this examination/study. > Interpreting Provider: Sara Huitron MD on 09/30/2023 1:43 PM MRI BRAIN WW CONTRAST Result Date: 09/30/2023 IMPRESSION: 1.There is lack of FLAIR suppression [...] partially empty sella appearance could be normal variant,however could also be seen in the setting of idiopathic intracranial hypertension. The report was drafted by Mary Muir MD (Video Arcade Manager). Preliminary findings were discussed in detail with the patient's care provider, Dr. Tan by Dr. Muir via telephone at 11:03 AM on 09/30/2023 with readback comprehension and verification. I, Sara Huitron MD have personally reviewedand interpreted this examination/study. > Interpreting Provider: Sara Huitron MD on 09/30/2023 1:43 PM ASSESSMENT AND PLAN: Selvin Mckeon is diagnosed with Suspected leukemic infiltration of both eyes and noted floaters of both eyes.. She will have re-evaluation tomorrow and if progressive, we may consider local radiationwith 600cGy in 3 fractions via 3D approach, then re-evaluate its efficacy. I have briefly reviewed with her the risks, benefits, side effects and alternatives to irradiation via 3D. We will evaluate tomorrow with BMT team and ophthalmology. Abrahan Villareal MD 09/30/2023 5:[address] REPRESENTATIVE * Zo Reyes MD - 09/29/2023 11:59 PM CSTAssociated Order(s): IP CONSULT TO PATHOLOGY TRANSFUSION MEDICINE CONSULT NOTE TRANSFUSION REACTION EVALUATION Clinical History: The patient is a 38-year-old woman with a PMH significant for AML. She was hospitalized for induction chemotherapy. The patient received 1 unit of platelets on 09/25/2023 ([id number]). The transfusion began at 16:26 and completed at 17:23. A total of 118.75 mL of platelets had been transfused. The patient received a 1L bolus of NS that completed at 17:40. At 23:44, she was noted to have an oxygen saturation of 77% on RA. She was given supplemental oxygen via nasal cannula. Her work of breathing and oxygen saturation improved. A transfusion reaction workup was requested. Vital Signs: Vital Sign Pre-Transfusion 15:59 Time of Symptoms 23:44 BP 136/81 114/60 HR 134 146 RR 22 24 SpO2% 94% RA 85% Temperature 98.5F 99.3F Laboratory Evaluation: Clerical check = No discrepancies Hemolysis/icterus = Negative Serological Discrepancies = Negative Assessment: There is no evidence of a hemolytic transfusion reaction. The patient's signs and symptoms do not support transfusion associated circulatory overload or transfusion related acute lung injury. Transfusion associated dyspnea is a possible cause of the patient's desaturation and respiratory distress. Recommendations: 1. Transfuse as clinically indicated. 2. In the event of respiratory distress within 72 hours of transfusion, monitoring of VS, Is/Os, radiologic evaluation for pulmonary vascular congestion or infiltrates, and BNP should be closely monitored. 3. Symptomatic management is recommended in the event of TAD, TACO, or TRALI. 4. Please notify the blood bank as soon as possible if a transfusion reaction is suspected in orderto obtain guidance. Zo Reyes MD Attending Physician Department of Pathology Transfusion Medicine ST REPRESENTATIVE * Jerel Beach MD - 09/29/2023 11:32 AM CSTAssociated Order(s): IP CONSULT TO OPHTHALMOLOGY Ophthalmology Service Consult Note [facility] Patient Information: Date of Consult: 09/29/2023 Patient name: Selvin Mckeon Patient : 1985 Patient Reason for Consultation: acute onset floaters x 3 days in the right eye History of Present Illness Selvin Mckeon is a 38 year old female w/ AML complicated by pancytopenia and febrile neutropenia presenting 09/03/2023 s/p induction therapy with idarubicin/cytarabine. She reports floaters in the right eye but denies vision loss, flashes, or veil OU. She denies pain, redness OU. Review of Systems Positives in bold - General: fevers, night sweats, weight loss - Neuro: headache, weakness/numbness/tingling, hearingloss, cognitive changes - ENT: oral ulcers, sinusitis, ear/nose deformities - Skin: rashes, poliosis, madarosis, vitiligo, erythema nodosum - Pulm: SOB/THOMPSON, cough, hemoptysis - Cardiac: chest pain, pa lpitations - GI: diarrhea, ulcers - : genital lesions, discharge, blood in urine - MSK: arthralgias, low back pain Other ROS negative beyond pertinent positives and negatives in HPI Past Medical/Surgical History Past Medical History: Diagnosis Date ??? NEGATIVE PAST MEDICAL HISTORY - SEE PROBLEM LIST Past ocular history: denies eye surgery, laser procedures, vision correction. Denies history of strabismus. Past Family History [] blindness [] glaucoma [] Other (please list) Family History Family history unknown: Yes Social History Noncontributory Allergies No Known Allergies Objective Base Eye Exam Visual Acuity (Lokesh Card) Right Left Near sc J1+ J1+ Tonometry (Tonopen, 11:53 AM) Right Left Pressure 15 14 Pupils Dark Light Shape React APD Right 6 4 Round Brisk None Left 6 4 Round Brisk None Visual Hurt (Counting fingers) Right Left Full Full Extraocular Movement Right Left Full Full Neuro/Psych Oriented x3: Yes Mood/Affect: Normal Dilation Both eyes: 1.0% Mydriacyl, 2.5% Dar Synephrine, 1.0% Cyclogyl @ 11:52 AM Additional Tests Color Right Left Ishihara 08/26 08/26 Slit Lamp and Fundus Exam External Exam Right Left External Normal Normal Portable Slit Lamp Exam Right Left Lids/Lashes Normal Normal Conjunctiva/Sclera White and quiet White and quiet Cornea Clear Clear Anterior Chamber Deep and quiet Deep and quiet Iris Round and reactive Round and reactive Lens Clear Clear Anterior Vitreous PVD Normal Fundus Exam Right Left Disc peripapillary hemorrhages, possible infiltrate over disc peripapillary hemorrhages, possible infiltrate over disc C/D Ratio 0.3 0.3 Macula no DBH, MA no DBH, MA Vessels dilated and tortuous dilated and tortuous Periphery subILM heme, preretinal and intraretinal hemorrhages, inferotemporal birmingham spot, cotton wool spots preretinal and intraretinal hemorrhages, inferior birmingham spot, cotton wool spots Assessment/Plan Selvin Mckeon is a 38 year old femaleconsulted for new onset floaters OD. 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 - Ddx: 1. Hypertensive retinopathy: BP typically 120-130s/80s per review of records 2. Valsalva retinopathy: Pt does report history of coughing a lot but Valsalva retinopathy is typically characterized by preretinal heme, unlike hemorrhages of different retinal layers seen in this case. 3. Terson syndrome: No history of SAH to suggest Terson syndrome. 4. Diabetic retinopathy. A1c 7.2 but no MA, VB, or GEOFFREY to suggest diabetic retinopathy. 5. Retinal vein occlusion. Distribution of hemorrhages not suggestive of retinal vein occlusion. 6. Purtscher or purtscher-like retinopathy. Not enough CWS, retinal whitening, or purtscher flecken, or etiologies (traumatic or nontraumatic such as acute pancreatitis, HL after BMT with renal thrombotic microangiopathy) suggest Purtscher or Purtscher-like retinopathy. 7. Infectious - no hypopyon, anterior chamber inflammation, no history of VZV/HSV, low level of suspicion. - So far likely etiology is leukemic infiltration vs. Severe thrombocytopenia but will have to evaluate further. Her vision currently is very good most likely due to fovea not being involved. Recommendations: - Will evaluate further in clinic tomorrow morning at 8:30am in Ophthalmology Clinic ([facility]) in the [facility] - Slit lamp exam OU to evaluate for AC reaction (cell/flare) and rule out vitritis - Fundus photos OU - OCT nerve OU - OCT macula OU - HVF 24-2 OU - FOLLOW-UP PLAN: Next planned ophthalmology evaluation is tomorrow. Call prior to discharging pt for follow-up. Pt should not be discharged prior to ophthalmology arranging follow-up. Upon discharge, will plan to schedule with [facility], with possible future follow up with [facility]. Seen with Dr. Hobson, consult attending. Jerel Beach MD Ophthalmology Resident 09/29/2023 9:[address] REPRESENTATIVE Associated attestation - Song Hobson MD - 10/01/2023 3:26 PM ARTIST REPRESENTATIVE I have reviewed the resident note, the documented assessment and plan, and all associated tests, labs, and imaging. I have personally examined the patient with the resident, and have revised the above note to document my findings/assessment/plan. Assessment and instructions were reviewed with the patient or family, medications were ordered as appropriate, and follow up appointments were scheduled. Patient and/or family verbalized their understanding of the above assessment/plan, and all questions were answered. Patient will need LP with opening pressure, cytology, cultures. Follow up in clinic tomorrow for OCT-Nerve/Macula, HVF, color fundus photos. Follow up with [facility]. Song Hobson MD, PhD Attending, Cornea and Anterior Segment Service Date of Service: 09/29/2023 * Waleska Rosenberg MD - 09/25/2023 3:17 PM CSTAssociated Order(s): IP CONSULT TO CARDIOLOGY [facility] Inpatient Cardiology Consultation Note Selvin Mckeon, 38 year old : 1985 Admission: 09/03/2023 LOS: 22 Room: [facility] Requesting Physician/Service: Hem Reason For Consult: Sinus tachycardia History Of Present Illness: Selvin Mckeon is a 38 year old female with no known significant PMH, is admitted for AML induction. The patient was originally admitted at [place] with fevers and flu like symptoms. Was treated withvanc cefepime and then CTX but had persistent pancytopenia so bone marrow biopsy was done which showed 78% blast on the bone marrow flow cytometry. Patient was transferred for further management. On tele the patient has been tachycardic in the 140-160's highest. No arrhythmias noted. EKG shows sinus tachycardia. TTE done shows normal LV size and function. The patient has no known personal or family cardiac hx. She is a nonsmoker, no illicit drug use and uses alcohol occasionally. Cardiology consulted for further management. Review of Systems: Negative unless otherwise stated in HPI. Past Medical/Surgical History: Past Medical History: Diagnosis Date ??? NEGATIVE PAST MEDICAL HISTORY - SEE PROBLEM LIST Past Surgical History: Procedure Laterality Date ??? Section ??? Cholecystectomy ??? KIDNEY STONES, REMOVAL Family History: Family History Family history unknown: Yes Social History: Social History Tobacco Use ??? Smoking status: Former Packs/day: 1 Types: Cigarettes Start date: 2004 Quit date: 2010 Years since quittin.0 ??? Smokeless tobacco: Never Vaping Use ??? Vaping Use: Never used Substance Use Topics ??? Alcohol use: Yes Comment: occasional ??? Drug use: Never Home Medications: No current outpatient medications on file prior to encounter. Inpatient Medications: MEDICATIONS FOR CURRENT ENCOUNTER: ?? SCHEDULED MEDICATIONS: ?? 0.9% NaCl injection 3 mL, Intracatheter, q8h ?? cefepime (Maxipime) 2,000 mg in 0.9% NaCl IV 50 mL IVPB, Intravenous, q8h ?? famotidine (Pepcid) tablet 20 mg, Oral, BID ?? medroxyPROGESTERone (Provera) tablet 10 mg, Oral, TID ?? perflutren lipid microsphere (Definity) injection 0.5 mL, Intravenous, intra- Procedure multiple ?? posaconazole (Noxafil) tablet 300 mg, Oral, QDAY WITH DINNER ?? potassium chloride (Klor-Con) packet 40 mEq, Oral, BID WC ?? sodium - potassium phosphates (K Phos Neutral) tablet 1 tablet, Oral, BID ?? sodium phosphate 40 mmol in dextrose 5 % 263.3 mL bolus, Intravenous, Once ?? valACYclovir (Valtrex) tablet 500 mg, Oral, BID ?? [COMPLETED] 0.9% NaCl IV bolus, Intravenous, Once ?? [COMPLETED] magnesium oxide (Mag-Ox) tablet 400 mg, Oral, Once ?? [COMPLETED] magnesium sulfate 4 g in 100 mL bolus, Intravenous, Once ?? [COMPLETED] sodium - potassium phosphates (K Phos Neutral) tablet 1 tablet, Oral, Once ?? [] iopamidol (Isovue 370) 76 % contrast, Intravenous, Contrast - Once ?? CONTINUOUS MEDICATIONS: ?? PRN MEDICATIONS: ?? 0.9% NaCl infusion rate and volume, Intravenous, Once PRN ?? 0.9% NaCl injection 1-10 mL, Intracatheter, PRN ?? acetaminophen (Tylenol) tablet 650 mg, Oral, q4h PRN ?? acetaminophen (Tylenol) tablet 650 mg, Oral, q6h PRN ?? ALPRAZolam (Xanax) tablet 0.25 mg, Oral, BID PRN ?? dicyclomine (Bentyl) tablet 20 mg, Oral, TID PRN ?? docusate sodium (Colace) solution 50 mg, Oral, AT BEDTIME PRN ?? heparin lock flush injection 500 Units, Intracatheter, PRN ?? melatonin tablet 3 mg, Oral, AT BEDTIME PRN ?? ondansetron (disintegrating) (Zofran ODT) tablet 8 mg, Oral, BID PRN ?? ondansetron (Zofran) injection 8 mg, Intravenous, BID PRN ?? oxyCODONE (immediate release) (Roxicodone) tablet 5 mg, Oral, q6h PRN ?? prochlorperazine (Compazine) injection 5 mg, Intravenous, q6h PRN ?? simethicone (Mylicon) chew tablet 80 mg, Oral, 4X/day PRN Allergies: No Known Allergies OBJECTIVE: Vitals: 09/25/23 1302 09/25/23 1305 09/25/23 1307 09/25/23 1451 BP: 129/77 122/77 121/75 Pulse: (!) 136 Resp: Temp: SpO2: Weight: Height: Body mass index is 46.9 kg/m??. PHYSICAL EXAM: General: Alert and Oriented to person, place, time and situation, no acute distress Neck: No JVD No cartoid bruit. Trachea midline. Heart: Tachycardia, Normal S1 and S2. No murmurs appreciated. Chest: Normal breath sounds, no wheezes or rhonchi Abdomen: Soft, Non-tender, Non-distended Extremities: No lower extremity edema, 2+ Fem, DP/PT, and Rad Pulses b/l, Normal ROM Neurological: CN II-XII grossly intact LABS: Recent Labs Component Name 09/24/232005 WBC 0.4* RBC 2.55* HGB 7.9* HCT 21.4* MCV 83.9 MCH 31.0 MCHC 36.9* PLTCOUNT 15* Recent Labs Component Name 09/24/23200509/24/2310709/23/23 1406 WBC 0.4* 0.3* 0.2* HGB 7.9* 7.4* 7.2* HCT 21.4* 19.8* 19.6* PLTCOUNT 15* 18* 18* Recent Labs Component Name 09/25/23 1404 09/24/23200509/24/23107 POTASSIUM 3.5 3.7 3.1* CO2 19* 18* 22 BUN 5* 8 5* CREATININE 0.70 0.76 0.69 GLUCOSE 158* 146* 134* CALCIUM 7.8* 8.5 8.5 Recent Labs Component Name 09/13/23205109/12/23204509/11/232001 INR 1.0 1.1 1.2 PT 13.1 13.6 14.4 PTT 23.2 20.9* 21.9* Recent Labs Component Name 09/24/23200509/24/2310709/22/23 2221 ALKPHOS 60 65 62 ALT 18 18 27 AST 8 6 8 No results for input(s): TSH in the last 26935 hours. No results for input(s): CKMB , TROPONIN , MYOGLOBIN in the last 93650 hours. Recent Labs Component Name 09/25/23 0014 PJF6TNR 17.4* FIO2 21.0 No results for input(s): CHOL , HDL , TRIG , LDLCALC in the last 75440 hours. EKG: Sinus tachycardia Telemetry: Sinus tachycardia range 130-160 BPM. TTE 09/05/2023: ??? Technically difficult study ??? Left??Ventricle: Left ventricle size is normal. Normal wall thickness. Normal systolic function. EF by 2D Brian biplane is 59%. Normal wall motion. Normal diastolic function. ??? Right??Ventricle: Not well visualized, but appears mildly dilated. Normal systolic function. Assessment/Recommendations: #1 AML #2 Sinus tachycardia #3 Febrile neutropenia #4 Pancytopenia - The patient has multiple reasons to be in sinus tachycardia. It is most likely related to her febrile neutropenia, pancytopenia, active AML and treatment. - On her most recent TTE the IVC was not visualized because of technically difficult study. If a VICTORINA is to be ordered will need to focus on IVC to give an idea on volume status. - No need for treatment of sinus tachycardia. Recommend to treat underlying causes (O2, volume, pain, Pancytopenia). - Keep on tele while inpatient. Keep K and Mg above 4 and 2. - Cardiology will sign off. Please don't hesitate to call us with any further questions or concerns. Thank you for allowing us to participate in this patient's care. Please don't hesitate to call us with any further questions. Please note, recommendations are not final until attested/co-signed by the attending physician. Waleska Rosenberg MD PGY-6 Workforce Management Manager [place], [place] Pager: [phone]PRES[address]ATIVE Associated attestation - Alfredito Loaiza MD - 09/26/2023 10:11 PM ARTIST REPRESENTATIVE AATTENDING PHYSICIAN NOTE Patient seen and examined with the resident. I confirm the history, exam, assessment and plan. In addition I note: Chief complaint: Tachycardia. AML/pancytopenia. History: The patient was originally admitted at [facility] with fevers and flu like symptoms. Was treated with vanc cefepime and then CTX but had persistent pancytopenia so bone marrow biopsy was done which showed 78% blast on the bone marrow flow cytometry. Patient was transferred for further management. On tele the patient has been tachycardic in the 140-160's highest. No arrhythmias noted. EKG shows sinus tachycardia. TTE done shows normal LV size and function. The patient has no known personal or family cardiac hx. AML with severe pancytopenia. Hgb as low as 5-6. Tachycardiac physiologic. Social History Socioeconomic History Marital status: Tobacco Use Smoking status: Former Packs/day: 1 Types: Cigarettes Start date: 2004 Quit date: 2010 Years since quittin.0 Smokeless tobacco: Never Vaping Use Vaping Use: Never used Substance and Sexual Activity Alcohol use: Yes Comment: occasional Drug use: Never Sexual activity: Yes Family history is unknown by patient. No Known Allergies Past Medical History: No date: NEGATIVE PAST MEDICAL HISTORY - SEE PROBLEM LIST A full 12 point review of systems was performed and was otherwise negative besides what was mentioned in the HPI. Exam: BP 121/79 (BP Cuff Size: A) Pulse (!) 128 Temp 98.3 ??F (36.8 ??C) (Oral) Resp 23 Ht 5' 2 Wt 259 lb 6.4 oz SpO2 96% NAD. HEENT: neck supple. Atraumatic. Cor: Tachy/RRR. No JVD. No S3 Resp: clear bilaterally. GI: soft. NT. Ext: no edema Medications were reviewed; please see the resident's note for complete list. Data Review: pertinent lab and cardiac data reviewed Lab Results: Recent Labs Component Name 09/25/23195309/25/23 1433 09/24/232005 WBC 0.2* 0.2* 0.4* HGB 7.4* 8.2* 7.9* HCT 19.9* 22.4* 21.4* PLTCOUNT 29* 6* 15* Recent Labs Component Name 09/26/23 1501 09/26/23 0941 09/25/231953 POTASSIUM 3.5 6.0* 3.2* CO2 22 22 19* BUN <5* <5* <5* CREATININE 0.57 0.62 0.64 GLUCOSE 123* 199* 189* CALCIUM 7.7* 7.8* 7.3* Recent Labs Component Name 09/13/23205109/12/23204509/11/232001 INR 1.0 1.1 1.2 PT 13.1 13.6 14.4 PTT 23.2 20.9* 21.9* Recent Labs Component Name 09/25/23195309/24/23200509/24/23 0108 ALKPHOS 45 60 65 ALT 14 18 18 AST 9 8 6 No results for input(s): TSH in the last 32610 hours. No results for input(s): CKMB , TROPONIN , MYOGLOBIN in the last 60194 hours. Recent Labs Component Name 09/25/23 0014 [id number] 17.4* FIO2 21.0 No results for input(s): CHOL , HDL , TRIG , LDLCALC in the last 01697 hours. ECG reviewed: GROVER Frost. CXR reviewed: Normal heart and diffuse infiltrates. Assessment/Plan: Tachycardia. AML/pancytopenia. History: The patient was originally admitted at [facility] with fevers and flu like symptoms. Was treated with vanc cefepime and then CTX but had persistent pancytopenia so bone marrow biopsy was done which showed 78% blast on the bone marrow flow cytometry. Patient was transferred for further management. On tele the patient has been tachycardic in the 140-160's highest. No arrhythmias noted. EKG shows sinus tachycardia. TTE done shows normal LV size and function. The patient has no known personal or family cardiac hx. AML with severe pancytopenia. Hgb as low as 5-6. Tachycardiac physiologic. Supportive care only. Reassured heart is functioning normally and responding to stress of condition. Please see the resident's note for further details. Alfredito Loaiza MD, F.A.C.C. ring rolling machine operator 09/26/2023 4:21 PM * Osmar Lozada MD - 09/25/2023 3:05 PM CSTAssociated Order(s): IP CONSULT TO SECURITY INCIDENT RESPONSE SPECIALIST PULMONARY MEDICINE CONSULT NOTE Date: 09/25/2023 Admission date: 09/03/2023 Reason for Consult: Sinus tachycardia Requesting Service: Med 2 (internal medicine) ASSESSMENT & RECOMMENDATIONS Sinus tachycardia Possible RLL segmental pulmonary embolism Recommendations: - Questionable PE. If present, not likely a major contributor to sinus tach - Would not anticoagulate given thrombocytopenia and questionable PE - Would not consider IVC filter given questionable PE and no DVT on LE duplex - Would recommend volume repletion and aggressive phos repletion (sodium down- trending and patient has volume loss with vomiting and diarrhea). Appears dry on exam, and 6-10 lb weight loss since admission also suggestive of volume loss - Further evaluation of sinus tach per primary team The patient will be discussed with the attending physician, Dr. Naylor Thank you for consulting pulmonary medicine. Osmar Lozada MD Pulmonary & Critical Care Fellow, PGY6 Division of Pulmonary, Critical Care and Sleep Medicine ADDENDUM 09/26/23: Evaluated again on 09/26/23. Desaturation episode overnight now requiring 1-2L of supplemental oxygen. Tachycardia had resolved overnight. Appeared comfortable this am. Performed bedside lung US this am without B lines or notable pleural effusion. IVC collapsible with expiration. CXR appears clear with possibly some increased interstitial markings. Hypoxia likely multifactorial due to anemia, obesity, AML, atelectasis, etc Recommendations: - Continue supplemental O2 to maintain O2 sat 92%+ - Encourage frequent IS, OOB to chair and activity, physical therapy - Can order prn duo-nebs for wheezing or shortness of breath We will sign off at this time, please contact us with any further questions. Osmar Lozada MD SUBJECTIVE HPI: Selvin Mckeon is a 38 year old female recently diagnosed with AML admitted to [facility] for suspected AML evaluation and treatment. She underwent port placement and bone marrow biopsy on 09/05/23. She started induction chemotherapy 7+3 on 09/06. Hospital course has been complicated by thrombocytopenia and tachycardia. Her HR seemed to increaseto low 100's around 09/12 and has been persistently 110's + over the last 2-[address] scan completed on 09/22 was suggestive of a possible RLL segmental pulmonary embolism, however the scan is poor quality. 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 Lives in: House Known exposure to: none Illicit Substance use: denies Tobacco smoking: denies Review of Systems Positive if bold CONST Chills, fever, malaise, fatigue, weight loss ENT Hearing loss, tinnitus, rhinorrhea, sore throat EYES Blurred vision, double vision RESP Cough, hemoptysis, sputum production, shortness of breath, wheezing CV Chest pain, palpitations GI Abdominal pain, constipation, diarrhea, heartburn, nausea, vomiting Dysuria, frequency, urgency MSK Back pain, joint pain, weakness SKIN Itching, rash NEURO Dizziness, headaches, neuropathy PSYCH Depression, anxiety, SI Past Medical History: Diagnosis Date ??? NEGATIVE PAST MEDICAL HISTORY - SEE PROBLEM LIST Past Surgical History: Procedure Laterality Date ??? Section ??? Cholecystectomy ??? KIDNEY STONES, REMOVAL Family History Family history unknown: Yes No Known Allergies Social History Smoking status: Former Packs/day: 1.00 Years: 0.00 Types: Cigarettes Start date: 2004 Quit date: 2010 Smokeless tobacco: Never Alcohol use: Yes Comment: occasional Drug use: Never Sexual activity: Yes OBJECTIVE BP 121/75 (BP Cuff Size: A) Pulse (!) 136 Temp 98.3 ??F (36.8 ??C) (Oral) Resp 22 Ht 1.575 m (5' 2 ) Wt 116.3 kg (256 lb 6.4 oz) SpO2 97% PHYSICAL EXAM GEN NAD, obese CF, up in chair, SO and SO's son present HEENT Anicteric sclera, dry mucous membranes CV Tachycardia, regular rhythm. Minimal bilateral LE pitting edema PULM CTAB GI SNTND MSK 5/5 strength bilateral UE, LE NEURO no focal neurologic deficits SKIN no rashes/lesions PSYCH AOx3; calm LABS: CBC: Recent Labs Lab 09/25/23 1433 WBC 0.2* HGB 8.2* HCT 22.4* MCV 83.0 PLTCOUNT 6* BMP: Recent Labs Lab 09/25/23 1404 NA 129* POTASSIUM 3.5 CL 99 CO2 19* BUN 5* CREATININE 0.70 CALCIUM 7.8* CMP: Recent Labs Lab 09/24/232005 AST 8 ALT 18 TBILI 0.7 ALKPHOS 60 PROT 6.9 MICRO: mrsa dna pcr (09/22): negative resp pathogen panel (09/22): none detected Culture Blood (09/22): no growth IMAGING: CT ANGIO CHEST PULM EMBOLISM 09/23/2023 Impression: 1.Suboptimal evaluation of the pulmonary arteries given phase of contrast. However, within the limitations of this examination, there is suggestion of a small nonocclusive pulmonary embolus in a segmental/subsegmental right lower lobe pulmonary artery. 2.No evidence of acute right heart strain. 3.Otherwise, no acute pulmonary process. ST REPRESENTATIVE Associated attestation - Ramon Naylor MD - 09/26/2023 10:49 AM ARTIST REPRESENTATIVE I have seen and examined the patient with the resident/fellow and I agree with the findings and plan of care as documented by the resident/fellow except as noted below: New consult for dyspnea and sinus tachycardia. This is a 38-year-old female patient with recent diagnosis of AML. Started on induction chemotherapy. Has been having episodes of tachycardia along with dyspnea, chest tightness. The patient tells me her episodes of dyspnea on exertion and chest tightness have been going on for 1 month. Sometimes associated with some wheezing. Denies any coughing. Denies any prior history of asthma or obstructive lung disease. Denies any history of childhood asthma or obstructive lung disease. No family history of asthma that she is aware of. She is currently on 2 L O2 by nasal cannula. Data reviewed. CT PE protocol with questionable small segmental PE however this was a very poor contrast study. Assessment: 1. Acute respiratory failure with hypoxia which is likely multifactorial including anemia, obesity,lower lobe atelectasis from central obesity, possible pulm embolism, severe hypophosphatemia. Thereis also an element of deconditioning from newly diagnosed AML that could be contributing to her symp toms as well. 2. Questionable pulmonary embolism in the right lower lobe segmental pulmonary artery Recommendations: 1. Has significant thrombocytopenia at this time, cannot be anticoagulated for possible PE. No needfor IVC filter for now since no DVT on lower extremity Dopplers. Once her platelet counts recover, we will then reevaluate need for anticoagulation versus repeat CT PE protocol with better contrast study. 2. Titrate O2 to keep sats above 90%. 3. Provided incentive spirometer to the patient so she can use it multiple times a day to prevent atelectasis which could be contributing to her hypoxia 4. IV fluids as per primary team 5. Ambulate as able and regularly We will sign off at this time. Once her platelet counts recover, please reconsult us for evaluationof her pulmonary embolism to decide whether to start anticoagulation versus repeat CT PE protocol. Date of service: 09/26/2023 Ramon Naylor MD Teacher [facility] of Internal Medicine Division of Pulmonary, Critical Care and Sleep Medicine [facility] Pager: [phone] * Cheryl Storey RD/CANDIDO - 09/16/2023 1:51 PM CSTAssociated Order(s): IP CONSULT TO NUTRITIONAL SERV Clinical Nutrition Assessment Brief Synopsis: Patient is at Nutrition Risk; Specific criteria can be found in assessment below Nutrition Plan: Regular Diet +Premier Protein shake from outside Recommendations to Physician: None Comments: Pt consulted for MST score of 3 for weight loss of 14-23#. Pt denied any weight loss, believes some weight loss could be due to fluid loss. Reports good appetite, has been consistently consuming 100% of meals. Reports reduced taste of foods, advised to adds seasoning/sauces to enhance taste. States that her boyfriend is bringing a case of premier protein. Educated pt on increased protein needs and suggested drinking one x1 a day. If PO intake decreases to increase the amount of supplements consumed. Diarrhea ongoing, x4 BM in last x24 hours. RD to follow. Assessment: Med/Surg History and Clinical Diagnoses: PMH who presented to [facility] presenting with fevers and flu like symptoms, initially thought to have tonsillitis seen on CT face Height: 157.5 cm (5' 2 ) Weight: 116.5 kg (256 lb 12.8 oz) BMI: Body mass index is 46.97 kg/m??. BMI Range: Severely Obese Class 2 IBW/lb (Calculated) Female: 110, Recent Weights/Methods 09/05/2023 1400 09/10/2023 0434 09/11/2023 0035 09/12/2023 0010 09/13/2023 0402 09/14/2023 0618 09/15/2023 0456 09/16/2023 0054 Weight: 118.8 kg (262 lb) 125.1 kg (275 lb 12.8 oz) 125.6 kg (277 lb) 121.8 kg (268 lb 9.6 oz) 119.9 kg (264 lb 6 oz) 120.1 kg (264 lb 12.8 oz) 118.9 kg (262 lb 3.2 oz) 116.5 kg (256 lb 12.8 oz) Weight Method : -- Standing Standing Standing -- Standing -- Bedscale Wt Comments: reviewed, some weight loss noted, pt believes its 2/2 fluid loss, noted net fluid gain+6L Diet order accuracy Current diet order: Regular Nutrition recommendation: alter/change nutrition order P.O.Intake for the past 48 hrs: % Meal Taken Av % Min: 100 % Max: 100 % Food Allergies: No known food allergies GI Concerns: Diarrhea Chewing/Swallowing: None Pain affecting intake: No Estimated Needs: KCAL: 2381-2295 (30-35kcal/kg of IBW) Protein (g): 66-77 (1.2-1.4gm/kg of IBW) Fluid (ml): 1 ml/kcal Needs based on: Kcal/kg- (Comment) (55kg of IBW) Recommended Access Route: PO Laboratory values: Recent Labs Component Name 09/15/23203909/14/23214909/13/232051 BUN 9 12 10 CREATININE 0.66 0.62 0.66 NA 137 139 138 POTASSIUM 3.9 3.9 3.7 CL 108* 111* 108* CO2 24 23 22 GLUCOSE 124* 191* 135* CALCIUM 8.8 8.5 8.4 PROT 6.4 5.9* 6.1 ALB 3.2* 2.9* 3.0* TBILI 0.6 0.3 0.5 ALKPHOS 55 57 55 ALT 36 34 40 AST 16 11 15 ANIONGAP 5* 5* 8 BCR 14 19 15 OSMOLALITY 284 293 287 AGRATIO 1.0* 1.0* 1.0* EGFR >90 >90 >90 Medications: Current Facility-Administered Medications Medication ??? 0.9% NaCl injection 3 mL And ??? 0.9% NaCl injection 1-10 mL ??? acetaminophen (Tylenol) tablet 650 mg ??? dicyclomine (Bentyl) tablet 20 mg ??? famotidine (Pepcid) tablet 20 mg ??? heparin lock flush injection 500 Units ??? levoFLOXacin (Levaquin) tablet 500 mg ??? LORazepam (Ativan) injection 1 mg ??? LORazepam (Ativan) tablet 1 mg ??? medroxyPROGESTERone (Provera) tablet 10 mg ??? melatonin tablet 3 mg ??? ondansetron (disintegrating) (Zofran ODT) tablet 8 mg ??? ondansetron (Zofran) injection 8 mg ??? oxymetazoline (Afrin) 0.05 % nasal spray 2 spray ??? perflutren lipid microsphere (Definity) injection 0.5 mL ??? posaconazole (Noxafil) tablet 300 mg ??? potassium chloride ER (Klor-Con M) tablet 20 mEq ??? prochlorperazine (Compazine) injection 5 mg ??? prochlorperazine (Compazine) tablet 10 mg ??? simethicone (Mylicon) chew tablet 80 mg ??? valACYclovir (Valtrex) tablet 500 mg Skin/Wound: None Nutrition Care Process (1) Nutrition Diagnostic Statement: Increased nutrient needs related to:: cancer as evidenced by:: estimated protein needs ..;estimated energy needs .. Nutrition Diagnostic Statement Progress: New diagnostic statement established Nutrition Intervention: Meals and snacks: Monitoring: GI, PO intake, WT, labs, medications Evaluation: Nutrition Goal: Total intake will meet estimated nutrient needs Nutrition Goal Timeframe: Throughout stay Nutrition Goal Progress: New goal established Ascom [id number] REPRESENTATIVE * Velma Toney MD - 09/04/2023 3:22 PM CST Images from the original note were not included. HEMATOLOGY/ONCOLOGY INPATIENT CONSULTATION NOTE Name: Selvin Mckeon Age: [age] year old Date of : 1985 Date of Service: 09/04/2023 Reason for Consult: AML HEMATOLOGY & ONCOLOGY HISTORY Principal Diagnosis: Suspected AML Current Therapy: none Prior Hematology/Oncology History: None SUBJECTIVE History of Present Illness Chief Complaint: Fatigue, flu like symptoms History of Present Illness: Selvin Mckeon is a 38 year old female with no PMH who presented to [facility] presenting with fevers and flu like symptoms, initially thought to have tonsillitis seen on CT face?. Was treated with vanc cefepime and then CTX but had persistent pancytopenia so bone marrow biopsy was done whichshowed 78% blast on the bone marrow flow cytometry. Pt was transferred for concern for AML Formal bone marrow report still pending from [facility] - Lives alone with daughter ( 11 y old) who is currently staying with her dad No PMH of cancers , is adopted so not sure about FH No drugs or smoking or alcohol use Review of Systems: As noted in HPI. All other systems reviewed and negative. Past Medical & Surgical History Patient Active Problem List Diagnosis ??? 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 NEGATIVE PAST MEDICAL HISTORY - SEE PROBLEM LIST Past Surgical History: Procedure Laterality Date ??? Section ??? Cholecystectomy ??? KIDNEY STONES, REMOVAL Past Oncology History Cancer Staging No matching staging information was found for the patient. Oncology History No history exists. Active Treatment & Therapy Days for Selvin Mckeon (until 09/05/2023) Selvin Mckeon does not have any active plans of the following types: ONCOLOGY TREATMENT Social History Social History Tobacco Use ??? Smoking status: Former Packs/day: 1 Types: Cigarettes Start date: 2004 Quit date: 2010 Years since quittin.9 ??? Smokeless tobacco: Never Substance Use Topics ??? Alcohol use: Yes Comment: occasional Family History Family History Family history unknown: Yes Medications SCHEDULED MEDICATIONS: Followed by 0.9% NaCl injection 3 mL, Intracatheter, q8h amoxicillin-clavulanate (Augmentin) tablet 875 mg, Oral, BID levoFLOXacin (Levaquin) tablet 500 mg, Oral, QDAY medroxyPROGESTERone (Provera) tablet 10 mg, Oral, QDAY posaconazole (Noxafil) tablet 300 mg, Oral, BID WC valACYclovir (Valtrex) tablet 500 mg, Oral, BID [START ON 09/05/2023] posaconazole (Noxafil) tablet 300 mg, Oral, QDAY WITH DINNER CONTINUOUS MEDICATIONS: PRN MEDICATIONS: 0.9% NaCl injection 1-10 mL, Intracatheter, PRN acetaminophen (Tylenol) tablet 650 mg, Oral, q6h PRN melatonin tablet 3 mg, Oral, AT BEDTIME PRN Allergies No Known Allergies OBJECTIVE Physical Exam Vitals: 09/03/23 2351 09/04/23 0503 09/04/23 0749 09/04/23 1157 BP: 127/83 129/81 119/80 128/80 Pulse: 93 100 107 86 Resp: 18 18 16 16 Temp: 98.4 ??F (36.9 ??C) 97.8 ??F (36.6 ??C) 98.4 ??F (36.9 ??C) 98.1 ??F (36.7 ??C) SpO2: 98% 99% 99% 100% Weight: 119 kg (262 lb 6.4 oz) Height: 1.575 m (5' 2 ) Wt Readings from Last 3 Encounters: 09/03/23 119 kg (262 lb 6.4 oz) ECO General: Well-developed . No acute [...] affect. Laboratory Results Recent Labs Component Name 09/04/23 0525 WBC 1.9* RBC 2.51* HGB 8.1* HCT 22.6* MCV 90.0 MCHC 35.8 PLTCOUNT 35* NEUTABS 0.11* 0.21* LYMPHABS 1.48 Recent Labs Component Name 09/04/23 0527 POTASSIUM 3.7 CO2 27 BUN 8 CREATININE 0.70 EGFR >90 GLUCOSE 89 CALCIUM 8.7 MAGNESIUM 2.2 PHOS 4.3 ALT 24 AST 25 ALKPHOS 58 Pathology Results Personally reviewed and summarized above in Hematology & Oncology History Radiology Results Personally reviewed and summarized above in Hematology & Oncology History No results found. ASSESSMENT Selvin Mckeon is a 38 year old female with Pancytopenia presenting with suspected AML # Suspected AML # Pancytopenia, neutropenia #Tonsillitis , now on augmentin -transferred from [facility] after a BMBX showed 78% blasts on bone marrow flow, final report of biopsy pending PLAN - Daily CBC w/diff, CMP, DIC work up (D- Dimer, Fibrinogen and PT/PTT/INR), Hemolysis (LDH, Retics count, haptoglobin) - HIV and hep screen NR - TTE ordered - Bone marrow at 10 am tomorrow - Start medroxyprogesterone 10 mg QD for menstrual bleeding as thrombocytopenia, continue for duration of chemo -Recommend levaquin, posaconazole and valtrex for OI prophylaxis -complete augmentin course -Recommend port placement tomorrow so that chemo can be started at the earliest -F/U on OSH bone marrow biopsy results - Please obtain a full ID workup (BCx, UA, CXR) if there is concern for infection - Transfusion goals plts > 10 K, Hb >7.0, Fibronogen > 100. Please give both leukoreduced and irratiated blood if needed -Dr Stafford will be primary Thank you for the opportunity to participate in the care of this patient. Hem/Onc consult service will continue to follow closely. Please don't hesitate to contact hem/onc consult fellow via the warping mill operator or AMION if any questions or clarifications. Velma Toney MD, PGY-4 Hematology-Oncology Fellow [facility] ST REPRESENTATIVE Associated attestation - Doris Avilez MD - 09/05/2023 9:45 AM ARTIST REPRESENTATIVE Attending Physician Supervisory Note I personally interviewed and examined the patient with the head of housekeeping. I confirm Dr. Toney's findings and agree with the assessment and plan as outlined. Doris Avilez MD * Neena Muir RD/LD - 09/04/2023 2:33 PM CSTAssociated Order(s): IP CONSULT TO NUTRITIONAL SERV Clinical Nutrition Nutrition Recommendations: No acute nutrition related issues identified at this time. Comments: RD consulted for MST of 14-23 lb wt loss. Pt reported unsure amount of wt as she hasn't weighed herself in a long time but has noticed body changes. Educated pt on importance of calorie intake and either maintaining weight or gradually losing weight to preserve muscle mass. Encouraged eating protein foods first. Pt reported good appetite, had 100% of lunch. Last BM 09/04. Informed pt ofsupplements and snacks available in nourishment room. P.O.Intake for the past 48 hrs:% Meal Taken Av % Min: 100 % Max: 100 % Admission weight: Weight: 119 kg (262 lb 6.4 oz) (09/03/23 2351) Filed Wts: 09/03/23 235 Weight: 119 kg (262 lb 6.4 oz) Height: 157.5 cm (5' 2 ) IBW/lb (Calculated) Female: 110, BMI: Body mass index is 47.99 kg/m??. Laboratory values reviewed. Medications noted. Will continue to monitor per Clinical Nutrition guidelines. Ascom: [id number] REPRESENTATIVE documented in this encounter OR Notes * Brief Op Note - Sara Huitron MD - 10/06/2023 3:04 PM CST Neuroradiology procedure note -- fluoroscopically-guided lumbar puncture with intrathecal chemotherapy Type of Procedure: 1. Diagnostic lumbar puncture under fluoroscopic guidance 2. Intrathecal injection of chemotherapeutic agent. Indications: Malignancy requiring IT chemotherapy and additionally evaluation for IIH. Attending Physician: Dr. Huitron was present for the aguirre portions of this procedure. Procedure details: Risks, benefits, and alternatives were explained to the patient and informed consent was obtained. The patient was sterilely prepped and draped. Immediately prior to the procedure, universal protocol was performed. The patient was re-identifiedand the procedure confirmed with the patient and all other members of the procedure team. Local anesthesia used: 4 of 1% Lidocaine HCl, injected. The patient tolerated the procedure well. Needle Used: 20-gauge 5-inch spinal needle Spinal Level Accessed: L3-4 CSF Appearance: clear Opening Pressure (Prone): 31 cm H2O Amount of CSF removed: A total of 16 ml was removed and distributed in a total of 4 tubes. Contrast Used: None Intrathecal medication administered: methotrexate PF 12 mg in 3 mL NaCl 0.9% Fluoroscopy Time: 6.1 seconds Immediate complications: None Impression: 1. Successful lumbar puncture under fluoroscopy-guidance at L3-4. 2. Successful injection of intrathecal chemotherapeutic agent. 3. Successful measurement of opening pressure: 31 cm H2O in prone position. For full procedure details, see the dictated report. Sivakumar Garrido DO Diagnostic Radiology PGY-2 I , , was present for the aguirre and critical portions of the procedure ST REPRESENTATIVE * Brief Op Note - Sivakumar Garrido DO - 10/01/2023 10:45 AM CST Neuroradiology procedure note -- fluoroscopically-guided lumbar puncture with intrathecal chemotherapy Type of Procedure: 1. Diagnostic lumbar puncture under fluoroscopic guidance 2. Intrathecal injection of chemotherapeutic agent. Indications: AML requiring CSF collection and intrathecal chemotherapy administration Attending Physician: Dr. Davison was present for the aguirre portions of this procedure. Procedure details: Risks, benefits, and alternatives were explained to the patient and informed consent was obtained. The patient was sterilely prepped and draped. Immediately prior to the procedure, universal protocol was performed. The patient was re-identifiedand the procedure confirmed with the patient and all other members of the procedure team. Local anesthesia used: 4 mL of 1% Lidocaine HCl, injected. The patient tolerated the procedure well. Needle Used: 20-gauge 5-inch spinal needle Spinal Level Accessed: L4-5 CSF Appearance: clear Opening Pressure (left lateral decubitus): Not measured Amount of CSF removed: A total of 23 ml was removed and distributed in a total of 4 tubes. Contrast Used: None Intrathecal medication administered: Cytarabine 100 mg Fluoroscopy Time: 11.4 seconds Immediate complications: None Impression: 1. Successful lumbar puncture under fluoroscopy-guidance at L4-5. 2. Successful injection of intrathecal chemotherapeutic agent. For full procedure details, see the dictated report. Sivakumar Garrido, DO Diagnostic Radiology PGY-2 ST REPRESENTATIVE documented in this encounter Miscellaneous Notes * Clinical References AVS - Fabien Anna, Graduate Nurse - 10/09/2023 4:38 PM CST Images from the original note were not included. [id number] Thrombocytopenia Thrombocytopenia occurs when there are fewer platelets in the blood than normal. Platelets (thrombocytes) are blood cells that are needed for clotting. They help stop or control bleeding when you have a cut or wound. Thrombocytopenia can range from mild to severe. This depends on the number of platelets in your blood. If you have severe thrombocytopenia, you're at higher risk for bruising and bleeding. What causes thrombocytopenia? Platelets and other blood cells are made in the bone marrow. This is the soft, spongy part inside bones. Thrombocytopenia can result when: ?? The bone marrow doesn't make enough platelets ?? Platelets are destroyed by the body at a rate faster than they can be made in the bone marrow ?? Platelets become trapped in an enlarged spleen These problems can happen because of many reasons, including: ?? Certain conditions that affect how platelets are made in the bone marrow, such as aplastic anemia, leukemia, and lymphoma ?? Certain medicines, such as some types of antibiotics, antiseizure medicines, and chemotherapy medicines ?? Certain viral infections, such as varicella (chicken pox), HIV, and Martha- Ghotra virus ?? Certain immune problems, such as lupus and immune thrombocytopenic purpura (ITP) ?? Certain conditions that can cause an enlarged spleen, such as cirrhosis and cancer ?? Alcohol abuse ?? What are the symptoms of thrombocytopenia? Possible symptoms include: ?? Severe bruising or bleeding ?? Small red or purple spots (petechiae) on the skin ?? Bleeding gums ?? Nosebleeds ?? Bleeding from a wound that stops and starts again ?? Bloody urine or stool ?? Heavy menstrual flow How is thrombocytopenia diagnosed? Your healthcare provider will ask about your symptoms and health history. You will also be examined. Tests will be done to confirm the problem as well. These may include: ?? A complete blood cell count (CBC). This test measures the amounts of the different types of cells in the blood. This includes the number of platelets in the blood platelet count). ?? A blood smear. This test checks for the different types of blood cells in the blood and how theyappear. A sample of your blood is spread on a glass slide and viewed under a microscope. A stain isused so the blood cells can be seen. ?? A bone marrow aspiration and biopsy. This test checks for problems with how the bone marrow makes blood cells. A needle is used to remove a sample of the bone marrow in your hipbone. The sample isthen sent to a lab to be tested for problems. How is thrombocytopenia treated? Often, no treatment is needed for thrombocytopenia. Your healthcare provider will monitor your symptoms to see if they improve. Blood tests will also be done to check whether your platelet count returns to normal on its own. If treatment is needed, this may involve: ?? Treatment of the underlying cause. For instance, if a medicine is the cause, it may be stopped or changed. ?? Platelet transfusions. These help raise the number of healthy platelets in the body. ?? Blood transfusions. These help treat blood loss that may occur because of low platelets. ?? Medicines. These may be given to help prevent platelets from being destroyed. These may also be given to help the bone marrow make more platelets. ?? Surgery to remove the spleen. The spleen helps filter the blood. It also stores some blood cells, including platelets. When thrombocytopenia is caused by ITP, platelets become trapped in the spleen. If ITP is not controlled with medicine, removing the spleen can be an effective treatment. What can I expect for recovery and follow-up? Thrombocytopenia may be a short-term (acute) problem that has no lasting effects. Or it may be an ongoing (chronic) problem. If your condition is chronic, you may need specific treatments to manage it. Your healthcare provider will explain what you need to do based on the cause and long-term outlook of your thrombocytopenia. You may need to take certain steps daily to reduce your risk of bleeding. Your healthcare provider will give you specific home care instructions. Follow your provider's instructions closely. Here aresome tips. Activity ?? You may feel tired for a few weeks while your platelet levels are still low. However, try to stay active. Start walking around the house or outside as soon as you feel like you can. ?? You may be told to limit certain activities that increase your risk of injury. Talk to your healthcare provider before playing contact sports. Avoid situations where you could get bruise or bleed. Diet and medicine ?? If you were in the hospital, you likely will be able to eat your regular diet once you go home. Eat a well-balanced diet with plenty of fruits and vegetables. This is to make sure your body gets all the nutrients it needs to make healthy platelets. ?? You may be advised to not drink alcohol and to not take certain medicines, such as aspirin and ibuprofen. These can worsen your symptoms. ?? Take your prescribed medicines as instructed by your healthcare provider. Don't skip doses or change doses without talking to your provider. Ongoing and follow-up care ?? Keep all your healthcare provider's appointments. Ongoing follow-up with your provider is important to monitor your platelet counts. ?? Watch and keep track of bleeding and follow instructions on when to call your healthcare provider. This can include bleeding while brushing your teeth, increasing bruising, or heavy menstrual cycles. Call 911 Call 911 if you have any of these: ?? Heavy bleeding that won't stop. This includes a very heavy menstrual cycle for those who have periods. ?? Trouble breathing or chest pain ?? Fainting or feeling dizzy or lightheaded ?? Signs of bleeding in the brain. These include severe headache, dizziness, trouble with balance and coordination, abnormal walk, memory loss, and confusion When to call your healthcare provider Call your healthcare provider right away if you have any of these: ?? Bruising that spreads or worsens ?? Increase of small red or purple spots (petechiae) on the skin ?? Bloody urine ?? Dark brown or black, tarry, or bloody stools ?? Bloody vomit ?? New or worsening symptoms or you don't feel better as expected Last Reviewed Date: 2021 ?? 5560-7394 [employer] All rights reserved. This information is not intended as a substitute for professional medical care. Always follow your healthcare professional's instructions. ST REPRESENTATIVE * Clinical References AVS - Fabien Anna Graduate Nurse - 10/09/2023 4:37 PM CST Images from the original note were not included. [id number] Discharge Instructions: Caring for Your Central Line You are going home with a central line. It?s also called a central venous access device (CVAD) or central venous catheter (CVC). A small, soft tube (catheter) has been put in a vein that leads to your heart. This provides medicine, fluid,or nutrition during your treatment, or a combination of them as needed. It's taken out when you no longer need it. At home, you need to take care of your centralline to keep it working. A central line has a high infection risk. So you must take extra care washing your hands and preventing the spread of germs. This sheet will help you remember what to do at home. Understanding your role A nurse or other healthcare provider will teach you and your caregivers how to care for the centralline. Before leaving the hospital, make sure you understand what to do at home, how long you may need the central line, and when to have a follow-up visit. Write down important details about caring for your central line, including the following: Follow-up visit scheduled: Central line dressing change due date: Healthcare provider in charge of central line care and their phone number: Who to call with concerns about your central line and their phone number: Any other important information: Protecting the central line If the central line gets damaged, it won?t work right and could raise your chance of infection. Call your healthcare team right away if any damage occurs. To protect the central line at home: ?? Prevent infection. Use good hand hygiene by following the guidelines on this sheet. Don?t touch the catheter or dressing unless you need to. And always clean your hands before and after you come in contact with any part of the central line. Your caregivers, family members, and any visitors should use good hand hygiene, too. ?? Keep the central line dry. The catheter and dressing must stay dry. Don?t take baths, go swimming, use a hot tub, or do other activities that could get the central line wet. Take a sponge bath to avoid getting the central line wet, unless your healthcare provider tells you otherwise. Ask your provider about the best way to keep the line dry when bathing or showering. If the dressing does get wet, change it only if you have been shown how. Otherwise, call your healthcare team right away for help. Have clean or sterile gloves on hand if you will be changing the dressings over the catheter. ?? Don't damage the catheter. Don?t use any sharp or pointy objects around the catheter. This includes scissors, pins, knives, razors, or anything else that could cut it or put a hole in it (punctureit). Also, don?t let anything pull or rub on the catheter, such as clothing. ?? Watch for signs of problems. Pay attention to how much of the catheter sticks out from your skin. If this changes at all, let your healthcare provider know. Also watch for cracks, leaks, or other damage. If the dressing becomes dirty, loose, or wet, change it (if you have been instructed to). Orcall your healthcare team right away. Also call right away if you have increasing pain, swelling, redness, or bleeding from the area. ?? Ask your healthcare provider if there are any movements or activities that you should avoid while you have a central line. D ?? Tell your healthcare team if you vomit or have severe coughing. This can also make the catheter slip out of place. Risk for blood clot If a blood clot forms it can block blood flow through the vein where the catheter is placed. Signs of a blood clot include pain or swelling in your neck, face, chest, or arm. If you have any of thesesymptoms, call your healthcare provider right away. You may need an ultrasound exam to find the blood clot. You may also be treated with a blood thinner. Prevent infection with good hand hygiene A central line can let germs into your body. This can lead to serious and sometimes deadly infections. To prevent infection, it?s very important that you, your caregivers, and others around you use good hand hygiene. This means washing your hands well with soap and water, and cleaning them with alcohol-based hand gel as directed. Never touch the central line or dressing without first using one ofthese methods. To wash your hands with soap and water: 1. Wet your hands with clean water. (Don't use hot water. It can cause skin irritation when you wash your hands often.) 2. Apply enough soap to cover the entire surface of your hands, including your fingers. 3. Rub your hands together briskly for at least 20 seconds. Make sure to rub the front and back of each hand up to the wrist, your fingers and fingernails, between the fingers, and each thumb. 4. Rinse your hands with clean water. 5. Dry your hands completely with a new, unused paper towel. Don?t use a cloth towel or other reusable towel. These can harbor germs. 6. Use the paper towel to turn off the faucet, then throw it away. If you?re in a bathroom, also use a paper towel to open the door instead of touching the handle. When you don?t have access to soap and water: Use alcohol-based hand gel to clean your hands. The gel should have at least 60% alcohol. Allow the alcohol gel to completely dry. Follow the instructions on the package. Your healthcare team can answer any questions you have about when to use hand gel,or when it?s better to wash with soap and water. When to call your healthcare provider Call your healthcare provider right away if you have any of the following: ?? Pain or burning in your shoulder, chest, back, arm, or leg ?? Fever of 100.4?? F ( 38.0??C) or higher ?? Chills ?? Signs of infection at the catheter site (pain, redness, drainage, burning, or stinging) ?? Coughing, wheezing, or shortness of breath ?? A racing or irregular heartbeat ?? Muscle stiffness or trouble moving ?? Gurgling noises coming from the catheter ?? The catheter falls out, breaks, cracks, leaks, or has other damage Last Reviewed Date: 2021 ?? [id number] [employer] All rights reserved. This information is not intended as a substitute for professional medical care. Always follow your healthcare professional's instructions. ST REPRESENTATIVE * Clinical References SIMON - Angelika Fry RN - 09/12/2023 6:17 AM ARTIST REPRESENTATIVE white_cell_count White Blood Cell Count Does this test have other names? WBC count, leukocyte count What is this test? This test measures the number of white blood cells (WBCs) in your blood. White blood cells are alsocalled leukocytes. Your bone marrow makes white blood cells and release them into the bloodstream. White blood cells help you fight infection. They are part of your body's immune system, which keeps you healthy and makes you well when you get sick. White blood cells work to destroy any foreign virus, fungus, or bacteria that enter your body. When you get sick, your white blood cell count is higher than normal. This is because your body is releasing more of these cells to fight the infection. But if you have certain illnesses like HIV or cancer, your white blood cell count can drop to very low levels. It can also drop if you are on medicine that weakens your immune system. This includes medicines, such as chemotherapy. White blood cells are divided into 5 main types: ?? Neutrophils ?? Basophils ?? Lymphocytes ?? Monocytes ?? Eosinophils This test measures the total count of all types of white blood cells. It does not measure the levels of each type of white blood cells. Why do I need this test? You may need this test to find out if you have an infection or illness. If your immune system is weakened by medicine or illness, you may also need this test to see if your white blood cell count is too low. If it is, even a simple infection could be very harmful to your body. What other tests might I have along with this test? You may also have these tests: ?? Differential WBC count. This blood test measures the amount of each type of white blood cell. ?? Complete blood count (CBC). This measures all of the major blood cells, including white blood cells. ?? Neutrophil test. This may be done to check for neutropenia. If you have neutropenia, it means your neutrophil count is low and you can easily get an infection. ?? Bacterial and viral cultures. Your healthcare provider may also send samples of your blood, urine, sputum, and cerebral spinal fluid (CSF) to the lab to check for bacteria and viruses. ?? Imaging tests. You may have imaging tests, such as an MRI or CT scan, to look for sources of infection. ?? Biopsy. If your healthcare provider thinks you may have a type of blood cancer, you may need a biopsy to help figure out the cause of your abnormal WBC values. What do my test results mean? Test results may vary depending on your age, gender, health history, and other things. Your test results may be different depending on the lab used. They may not mean you have a problem. Ask your healthcare provider what your test results mean for you. Normal white blood cell counts are: ?? 9,000 to 30,000/mm3 for babies 0 to 2 weeks old ?? 5,000 to 21,000/mm3 for babies 2 to 8 weeks old ?? 5,000 to 19,000/mm3 for children 2 months to 6 years old ?? 4,800 to 10,800/mm3 for children 6 to 18 years old ?? 4,500 to 10,500/mm3 for adults Test results that are higher than normal may mean that you have an infection or illness that your body is fighting. Test results that are lower than normal may mean that your immune system isn't working as well as it should. This means that even a small infection could cause serious health problems. How is this test done? The test is done with a blood sample. A needle is used to draw blood from a vein in your arm or hand. Infants usually have one of their heels stuck with a needle to collect a few drops of blood. Does this test pose any risks? Having a blood test with a needle carries some risks. These include bleeding, infection, bruising, and feeling lightheaded. When the needle pricks your arm or hand, you may feel a slight sting or pain. Afterward, the site may be sore. What might affect my test results? Some medicines may affect your test results. Tell your healthcare provider about treatments you aregetting, medicines you are taking, or recent illnesses you've had. How do I get ready for this test? You can probably eat, drink, and take your medicine as usual, but check with your healthcare provider. Be sure your provider knows about all medicines, herbs, vitamins, and supplements you are taking. This includes medicines that don't need a prescription and any illegal drugs you may use. Last Reviewed Date: 2022 ?? [id number] [employer] All rights reserved. This information is not intended as a substitute for professional medical care. Always follow your healthcare professional's instructions. ST REPRESENTATIVE * Clinical References AVS - Angelika Fry RN - 09/12/2023 6:15 AM ARTIST REPRESENTATIVE platelet_count Platelets Does this test have other names? Platelet count, thrombocyte count What is this test? This test measures the number of platelet cells in your blood. Platelets are disk-shaped cells that help your blood form clots. Platelets are also called thrombocytes. They are made in the spongy center of bones, called the bone marrow. About two-thirds of your platelets circulate in your blood all the time. They live for about 7 days. The number of platelets in your blood can give your healthcare provider valuable information about how well your blood clots to stop bleeding, how well your bone marrow is working, and about diseasesthat affect your platelet count. Why do I need this test? You may need this test if you are having routine blood testing during a physical exam. You may alsoneed this blood test if you have signs or symptoms that you may have too many or too few platelets. Having too many platelets is called thrombocythemia or thrombocytosis. Symptoms may include: ?? Weakness ?? Bleeding ?? Headache and dizziness ?? Numbness and burning of hands and feet Having too few platelets is called thrombocytopenia. Symptoms may include: ?? Red or brown bruising of the skin, a condition called purpura ?? Small red dots on the skin, a condition called petechiae ?? Nosebleeds ?? Mouth bleeding ?? Blood in bowel movements ?? Heavy or prolonged menstrual periods You may also have this test if a blood test called a peripheral smear shows an abnormal platelet count. What other tests might I have along with this test? Your healthcare provider may also order a complete blood count (CBC), which measures all the cells in your blood. Your provider may also order a mean platelet volume (MPV). MPV tells your provider about the size of your platelets. You may also need blood tests to look at your blood's ability to form blood clots.This is called a coagulation profile. What do my test results mean? Test results may vary depending on your age, gender, health history, and other things. Your test results may be different depending on the lab used. They may not mean you have a problem. Ask your healthcare provider what your test results mean for you. Platelets are measured as the number of platelets found in 1 microliter of blood. This is what the numbers may mean: ?? 150,000 to 450,000 platelets is normal ?? Fewer than 150,000 platelets is low ?? Fewer than 50,000 may cause mild bleeding ?? Fewer than 20,000 may cause serious bleeding Some common causes of an abnormally high number of platelets include: ?? Blood cell cancers such as leukemia, lymphoma, and Hodgkin disease ?? Other cancers ?? Kidney failure ?? Inflammatory disease such as rheumatoid arthritis ?? Certain types of anemia ?? Active infections Some common causes of an abnormally low number of platelets include: ?? Certain types of anemia ?? Infections ?? Heart failure ?? Cancer treatment ?? Bone marrow cancers ?? Alcohol abuse ?? Bleeding ?? Certain inherited syndromes ?? Liver or kidney disease How is this test done? The test is done with a blood sample. A needle is used to draw blood from a vein in your arm or hand. Does this test pose any risks? Having a blood test with a needle carries some risks. These include bleeding, infection, bruising, and feeling lightheaded. When the needle pricks your arm or hand, you may feel a slight sting or pain. Afterward, the site may be sore. What might affect my test results? Your platelet count may go up if you live at a high altitude or have recently exercised strenuously. Your platelet count may go down if you are about to have a menstrual period, are , or are taking control pills. Certain medicines can also affect your platelet count. How do I get ready for this test? You should avoid strenuous exercise before the test. If you are a woman, let your healthcare provider know if you may be or are having your period. Be sure your provider knows about all medicines, herbs, vitamins, and supplements you are taking. This includes medicines that don't need a pre scription and any illegal drugs you may use. Last Reviewed Date: 2022 ?? [id number] [employer] All rights reserved. This information is not intended as a substitute for professional medical care. Always follow your healthcare professional's instructions. ST REPRESENTATIVE * Clinical References AVS - Angelika Fry RN - 09/12/2023 6:15 AM ARTIST REPRESENTATIVE Images from the original note were not included. [id number] Thrombocytopenia Thrombocytopenia occurs when there are fewer platelets in the blood than normal. Platelets (thrombocytes) are blood cells that are needed for clotting. They help stop or control bleeding when you have a cut or wound. Thrombocytopenia can range from mild to severe. This depends on the number of platelets in your blood. If you have severe thrombocytopenia, you're at higher risk for bruising and bleeding. What causes thrombocytopenia? Platelets and other blood cells are made in the bone marrow. This is the soft, spongy part inside bones. Thrombocytopenia can result when: ?? The bone marrow doesn't make enough platelets ?? Platelets are destroyed by the body at a rate faster than they can be made in the bone marrow ?? Platelets become trapped in an enlarged spleen These problems can happen because of many reasons, including: ?? Certain conditions that affect how platelets are made in the bone marrow, such as aplastic anemia, leukemia, and lymphoma ?? Certain medicines, such as some types of antibiotics, antiseizure medicines, and chemotherapy medicines ?? Certain viral infections, such as varicella (chicken pox), HIV, and Martha- Ghotra virus ?? Certain immune problems, such as lupus and immune thrombocytopenic purpura (ITP) ?? Certain conditions that can cause an enlarged spleen, such as cirrhosis and cancer ?? Alcohol abuse ?? What are the symptoms of thrombocytopenia? Possible symptoms include: ?? Severe bruising or bleeding ?? Small red or purple spots (petechiae) on the skin ?? Bleeding gums ?? Nosebleeds ?? Bleeding from a wound that stops and starts again ?? Bloody urine or stool ?? Heavy menstrual flow How is thrombocytopenia diagnosed? Your healthcare provider will ask about your symptoms and health history. You will also be examined. Tests will be done to confirm the problem as well. These may include: ?? A complete blood cell count (CBC). This test measures the amounts of the different types of cells in the blood. This includes the number of platelets in the blood platelet count). ?? A blood smear. This test checks for the different types of blood cells in the blood and how theyappear. A sample of your blood is spread on a glass slide and viewed under a microscope. A stain isused so the blood cells can be seen. ?? A bone marrow aspiration and biopsy. This test checks for problems with how the bone marrow makes blood cells. A needle is used to remove a sample of the bone marrow in your hipbone. The sample isthen sent to a lab to be tested for problems. How is thrombocytopenia treated? Often, no treatment is needed for thrombocytopenia. Your healthcare provider will monitor your symptoms to see if they improve. Blood tests will also be done to check whether your platelet count returns to normal on its own. If treatment is needed, this may involve: ?? Treatment of the underlying cause. For instance, if a medicine is the cause, it may be stopped or changed. ?? Platelet transfusions. These help raise the number of healthy platelets in the body. ?? Blood transfusions. These help treat blood loss that may occur because of low platelets. ?? Medicines. These may be given to help prevent platelets from being destroyed. These may also be given to help the bone marrow make more platelets. ?? Surgery to remove the spleen. The spleen helps filter the blood. It also stores some blood cells, including platelets. When thrombocytopenia is caused by ITP, platelets become trapped in the spleen. If ITP is not controlled with medicine, removing the spleen can be an effective treatment. What can I expect for recovery and follow-up? Thrombocytopenia may be a short-term (acute) problem that has no lasting effects. Or it may be an ongoing (chronic) problem. If your condition is chronic, you may need specific treatments to manage it. Your healthcare provider will explain what you need to do based on the cause and long-term outlook of your thrombocytopenia. You may need to take certain steps daily to reduce your risk of bleeding. Your healthcare provider will give you specific home care instructions. Follow your provider's instructions closely. Here aresome tips. Activity ?? You may feel tired for a few weeks while your platelet levels are still low. However, try to stay active. Start walking around the house or outside as soon as you feel like you can. ?? You may be told to limit certain activities that increase your risk of injury. Talk to your healthcare provider before playing contact sports. Avoid situations where you could get bruise or bleed. Diet and medicine ?? If you were in the hospital, you likely will be able to eat your regular diet once you go home. Eat a well-balanced diet with plenty of fruits and vegetables. This is to make sure your body gets all the nutrients it needs to make healthy platelets. ?? You may be advised to not drink alcohol and to not take certain medicines, such as aspirin and ibuprofen. These can worsen your symptoms. ?? Take your prescribed medicines as instructed by your healthcare provider. Don't skip doses or change doses without talking to your provider. Ongoing and follow-up care ?? Keep all your healthcare provider's appointments. Ongoing follow-up with your provider is important to monitor your platelet counts. ?? Watch and keep track of bleeding and follow instructions on when to call your healthcare provider. This can include bleeding while brushing your teeth, increasing bruising, or heavy menstrual cycles. Call 911 Call 911 if you have any of these: ?? Heavy bleeding that won't stop. This includes a very heavy menstrual cycle for those who have periods. ?? Trouble breathing or chest pain ?? Fainting or feeling dizzy or lightheaded ?? Signs of bleeding in the brain. These include severe headache, dizziness, trouble with balance and coordination, abnormal walk, memory loss, and confusion When to call your healthcare provider Call your healthcare provider right away if you have any of these: ?? Bruising that spreads or worsens ?? Increase of small red or purple spots (petechiae) on the skin ?? Bloody urine ?? Dark brown or black, tarry, or bloody stools ?? Bloody vomit ?? New or worsening symptoms or you don't feel better as expected Last Reviewed Date: 2021 ?? [id number] [employer] All rights reserved. This information is not intended as a substitute for professional medical care. Always follow your healthcare professional's instructions. ST REPRESENTATIVE * Clinical References AVS - Angelika Fry RN - 09/12/2023 6:14 AM ARTIST REPRESENTATIVE complete_blood_count_w_differential Complete Blood Count with Differential Does this test have other names? CBC w/ diff What is this test? This panel of tests looks for many illnesses in your blood. These include anemia, infections, and leukemia. It can help see how your overall health is. The test gets a lot of information from your blood sample: ?? The number and types of white blood cells (WBCs). Your body has 5 types of white blood cells. All play a role in fighting infections. High numbers of WBCs, or of a specific type of WBC, may mean you have an infection or inflammation somewhere in your body. Low numbers of WBCs may mean you are atrisk for infections. ?? The number of red blood cells (RBCs). RBCs carry oxygen throughout the body and remove excess carbon dioxide. Too few RBCs may be a sign of anemia or other diseases. In rare cases, too many may cause problems with blood flow. ?? How the size of your red blood cells varies. This test is known as red cell distribution width (RDW, RDW-CV, or RDW-SD). For instance, you may have greater differences in red blood cell size if you have anemia. ?? Hematocrit (HCT). This means the portion of red blood cells in a certain amount of whole blood. A low hematocrit may be a sign of too much bleeding. Or it might mean that you have an iron deficiency or other disorders. A higher than normal hematocrit can be caused by dehydration or other disorders. ?? Hemoglobin (Hgb, Hb). Hemoglobin is a protein in red blood cells. It carries oxygen from your lungs to the rest of the body. Abnormalities can be a sign of problems ranging from anemia to lung disease. ?? The average size of your red blood cells. This test is known as mean corpuscular volume (MCV). MCV goes up when your red blood cells are bigger than normal. This happens if you have anemia caused by low vitamin B-12 or folate levels. If your red blood cells are smaller, this can mean other typesof anemia, such as iron deficiency anemia. ?? A platelet (PLT) count. Platelets are cell fragments that play a role in blood clotting. Too fewplatelets may mean you have a higher risk of bleeding. Too many may mean a number of possible conditions. ?? Mean corpuscular hemoglobin (MCH). This test measures how much hemoglobin your red blood cells have. Why do I need this test? You may need this test if your healthcare provider thinks you have a blood disorder. You may need this test if you have: ?? Unusual bleeding or bruising ?? Infection or inflammation ?? Weakness and tiredness that doesn?t go away. These may be symptoms of anemia. You may also have this test if your healthcare provider thinks you may have a certain disease or condition. Or you may have this test as part of a routine exam to check your health. The test may alsobe used to see how well certain treatments are working. What other tests might I have along with this test? Your healthcare provider may also order other tests if your results for this test are abnormal. These may include other blood tests, urine tests, and bone marrow or spinal fluid tests. What do my test results mean? Test results may vary depending on your age, gender, health history, and other things. Your test results may be different depending on the lab used. They may not mean you have a problem. Ask your healthcare provider what your test results mean for you. Normal ranges for the different parts of a CBC are: ?? Red blood cells (RBC): 3.8 to 5.69 million per cubic millimeter (million/mm3) ?? Red blood cell distribution width (RDW, RDW-CV, RDW-SD): 11.4% to 13.5% ?? White blood cells (WBC): 3.8 to 10.4 thousand per cubic millimeter (thousand/mm3) ?? Platelets (PLT): 152 to 361 thousand/mm3 ?? Hemoglobin (Hb or Hgb): 11.9 to 14.8 grams per deciliter (g/dL) in women, 13.6 to 16.9 in men ?? Hematocrit (HCT): 35% to 43% in women, 40% to 50% in men How is this test done? The test is done with a blood sample. A needle is used to draw blood from a vein in your arm or hand. Does this test pose any risks? Having a blood test with a needle carries some risks. These include bleeding, infection, bruising, and feeling lightheaded. When the needle pricks your arm or hand, you may feel a slight sting or pain. Afterward, the site may be sore. What might affect my test results? Certain medicines might affect your results, so talk with your healthcare provider about the medicines you are taking. How do I get ready for this test? You don't need to prepare for this test. Be sure your healthcare provider knows about all medicines, herbs, vitamins, and supplements you are taking. This includes medicines that don't need a prescription and any illicit drugs you may use. Last Reviewed Date: 2022 ?? [id number] [employer] All rights reserved. This information is not intended as a substitute for professional medical care. Always follow your healthcare professional's instructions. ST REPRESENTATIVE * Clinical References AVS - Angelika Fry RN - 09/12/2023 6:13 AM ARTIST REPRESENTATIVE hemoglobin Hemoglobin Does this test have other names? Hb, Hgb, H and H, Hemoglobin and hematocrit What is this test? This is a blood test to find out how much hemoglobin is in your blood. Hemoglobin is the main part of your red blood cells. Hemoglobin is made up of a protein called globin and a compound called heme. Heme consists of iron and a pigment called porphyrin, which gives your blood its red color. Hemoglobin serves the important role of carrying oxygen and carbon dioxide through your blood. Hemoglobin is carried by your red blood cells. If your hemoglobin is too low, you may not be able to supply the other cells in your body with the oxygen they need to survive. Why do I need this test? You may need this test if it is part of routine blood testing. You may also need to have your hemoglobin checked if you have anemia or symptoms of anemia. Anemia can be caused by blood loss, decreased production of red blood cells, or increased destruction of red blood cells. Your healthcare provider can use your hemoglobin test to help find the cause of your anemia. These are other reasons you may need this test: ?? To diagnose a disease that causes anemia ?? To see how severe your anemia is ?? To see whether your anemia is responding to treatment ?? To evaluate a disease called polycythemia Symptoms of anemia may include: ?? Shortness of breath ?? Dizziness ?? Fatigue ?? Headache ?? Cold, pale skin ?? Chest pain Polycythemia is a disease that causes your body to make too many red blood cells. Polycythemia may cause: ?? Heart attack ?? Stroke ?? Headache ?? Blurred vision ?? Dizziness ?? Weakness ?? Excessive sweating ?? Itching What other tests might I have along with this test? Hemoglobin is usually tested as part of a complete blood count, or CBC. A CBC is a blood test that counts all the different cells in your blood. A hemoglobin test may also be paired with a hematocrittest. When the two are tested together it is often called an H and H. The hematocrit blood test tells what percent of your blood is made up by red blood cells. What do my test results mean? Test results may vary depending on your age, gender, health history, and other things. Your test results may be different depending on the lab used. They may not mean you have a problem. Ask your healthcare provider what your test results mean for you. Hemoglobin measurement is given in grams per deciliter (g/dL). Normal hemoglobin is different for men, women, and children. Here are the approximate normal values: ?? 12 to 16 g/dL for women ?? 14 to 17.4 g/dL for men ?? 9.5 to 24.5 g/dL for children, depending on the child's age. If your child is having this test, you should discuss the results with your child's healthcare provider. High hemoglobin levels can be caused by polycythemia, heart failure, and chronic obstructive pulmonary disease. Low hemoglobin may be caused by: ?? Anemia ?? Iron deficiency ?? Liver disease ?? Cancer and other diseases ?? Hypothyroidism How is this test done? The test is done with a blood sample. A needle is used to draw blood from a vein in your arm or hand. Does this test pose any risks? Having a blood test with a needle carries some risks. These include bleeding, infection, bruising, and feeling lightheaded. When the needle pricks your arm or hand, you may feel a slight sting or pain. Afterward, the site may be sore. What might affect my test results? Your hemoglobin may be affected by several things: ?? Living at high altitudes may make hemoglobin go up. ?? Certain medicines can make hemoglobin go down or up. ?? An extreme amount of exercise can make hemoglobin go up. ?? may make hemoglobin go down. ?? Taking in too much fluid can make hemoglobin go down. How do I get ready for this test? You don't need to prepare for this test. Make sure to tell your healthcare provider about: ?? Any chance you are ?? Any extreme exercising you have been doing Be sure your healthcare provider knows about all medicines, herbs, vitamins, and supplements you are taking. This includes medicines that don't need a prescription and any illegal drugs you may use. Last Reviewed Date: 2022 ?? [id number] [employer] All rights reserved. This information is not intended as a substitute for professional medical care. Always follow your healthcare professional's instructions. ST REPRESENTATIVE * Clinical References AVS - Angelika Fry RN - 09/12/2023 6:12 AM ARTIST REPRESENTATIVE Images from the original note were not included. [address] Neutropenia White blood cells (WBCs) help protect the body from infection. Neutrophils are a type of white blood cell. Their main job is to help the body fight bacterial and fungal infections. Neutropenia occurswhen there are fewer neutrophils in the blood than normal. It can range from mild to severe. This depends on the number of neutrophils in the blood. Severe neutropenia puts a person at higher risk for having more infections. Bacterial and fungal infections are most common. Your healthcare provider can tell you more about your condition and whether it needs to be treated. What causes neutropenia? There are two main types of neutropenia: congenital and acquired. Each type has many causes: ?? Congenital neutropenia. These are the types that are present at . They are caused by certain rare genetic conditions, such as Kostmann syndrome. Most often the neutropenia is mild and normal for certain ethnic groups, including people of , , or Zoroastrian descent. ?? Acquired neutropenia. This type is not present at . Causes include: o Certain medicines, such as antibiotics and chemotherapy medicines o Certain autoimmune conditions o Certain viral, bacterial, or parasitic infections o Too little folate or vitamin B-12 in the diet o Underlying bone marrow problem, such as leukemia or myelodysplastic syndrome (MDS) o Other causes How is neutropenia diagnosed? Your healthcare provider may check for neutropenia if you have frequent infections. Your provider may also check for neutropenia if you?re having certain treatments, such as chemotherapy, which is known to cause a lower neutrophil count. Neutropenia is often found when a routine complete blood count is drawn. Tests will be done to confirm the problem. These may include: ?? A complete blood count (CBC). This test measures the amounts of the different types of cells in your blood. This includes the WBCs. The WBC count can be broken down further to find the number of neutrophils and immature neutrophils (bands) in your blood. This is called an absolute neutrophil count (ANC). ?? A blood smear. This test checks for the different types of blood cells in your blood and how they appear. A sample of your blood is spread on a glass slide and viewed under a microscope. A stain is used so the blood cells can be seen. ?? A bone marrow aspiration and biopsy. This test checks for problems with how your bone marrow makes blood cells. A needle is used to remove a sample of the bone marrow in your hip bone. The sample is then sent to a lab to be tested for problems. How is neutropenia treated? ?? If there is a clear cause of neutropenia, it is addressed. For instance, if a medicine is the cause, it may be stopped or changed. ?? Often no treatment is needed for mild cases, such as those linked to ethnicity. ?? For moderate to severe cases, treatment is likely needed. This may include: o G-CSF (granulocyte-colony stimulating factor). This is a special type of protein. It helps promote the growth and activity of neutrophils. G-CSF is given by injection. o Bone marrow transplant. This treatment replaces diseased bone marrow cells with healthy cells from a matched donor. This treatment is done only in specific severe cases. What is the long-term outcome of neutropenia? The outcome of neutropenia varies for each person. For some people, neutropenia may resolve after afew weeks or months. For other people, it may be long- lasting. In these cases, ongoing care and treatment may be needed. Your healthcare provider will talk to you more about what to expect from your c ondition. When to call your healthcare provider Call your healthcare provider right away if you have any of the following: ?? Cold sweat or chills ?? Chest pain or trouble breathing ?? Sore throat ?? Cough ?? Extreme tiredness or fatigue ?? Nausea and vomiting ?? Redness, warmth, or drainage from any open cuts or wounds ?? Pain or burning with urination; frequent urination ?? Pain, burning, or bleeding in the rectum ?? Severe constipation or diarrhea ?? Bloody stool or urine Call 911 Fever of 100.4??F (38??C) or higher. Call 911 or go to the emergency room. This is especially important if you have severe neutropenia. This puts you at higher risk for a life-threatening infection. How can I prevent infections? With neutropenia, take extra care to protect yourself from infection. Talk with your healthcare provider about what steps you need to take. What you do depends on how severe your neutropenia is. The following precautions help prevent infections: ?? Wash your hands often, especially before eating and after using the bathroom. Use clean, runningwater and soap. Scrub for 20 seconds, or for as long as it takes to sing the Happy Birthday song from beginning to end, twice. Or use a hand gel that contains at least 60% alcohol. ?? Stay away from crowds and close contact with others who may be ill. ?? Cook meat and eggs all the way through to kill any germs. ?? Carefully wash raw fruits and vegetables. Depending on how severe your neutropenia is, you may need to drop fresh fruits and vegetables from your diet. ?? Clean items you use often with disinfectant wipes. This includes phones and computer keyboards. ?? Don't touch your eyes, nose, and mouth, especially if your hands are not clean. ?? Practice good oral hygiene. Use a soft toothbrush. Also, brush and floss your teeth gently. ?? Always wipe from front to back after a bowel movement. ?? Stay up to date on vaccines advised by your healthcare provider. ?? Bathe every day and use an unscented lotion to prevent cracked skin. ?? Keep cuts and scrapes clean and covered until they heal. ?? Don't share items such as drinks, eating utensils, towels, toothbrushes, razors, clothing, and sports equipment. ?? Store and handle foods safely to prevent food-borne illness. ?? Protect yourself against pet waste (urine and stool) by using vinyl gloves when cleaning. ?? Always use gloves when gardening. You may have to avoid having live plants in your home. ?? Ask your healthcare provider if you need to take antibiotics before and after having any dental or medical procedures. ?? Ask your healthcare provider if you need to wear a special mask near construction sites or farm areas. Last Reviewed Date: 2022 ?? [id number] [employer] All rights reserved. This information is not intended as a substitute for professional medical care. Always follow your healthcare professional's instructions. ST REPRESENTATIVE * Clinical References AVS - Angelika Fry RN - 09/12/2023 6:09 AM ARTIST REPRESENTATIVE Images from the original note were not included. 25950 Cancer: Preventing Infections Cancer and cancer treatments can make your body less able to fight off infection. Chemotherapy (chemo), surgery, radiation therapy, immunotherapy, and targeted therapy can all affect how your body responds to infections. For example, chemo reduces the number of your white blood cells. White blood cells fight infection in your body. Surgery creates an opening in your skin that germs can enter through. Your immune system may work less well if you have trouble eating because of cancer. Follow all instructions from your healthcare provider to help prevent infections. The steps you need to take depend on your type of cancer and treatment. They also depend on your overall health. Use these tips as a guide. Scrub your hands with soap and warm water for at least 15 seconds. Know your milvia The milvia is the time during your chemo cycle when you have the fewest white blood cells. The length of your milvia and when it occurs depend on the medicines you are taking. Each medicine has its ownnadir. Talk with your healthcare provider about your milvia period. Then take extra care to prevent infection at that time. Protect yourself ?? Keep your hands clean. Bathe every day to reduce your risk for infection. Wash your hands often throughout the day. For best results, lather them with soap for at least 20 seconds with clean, running water. Wash your hands after blowing your nose, coughing, and sneezing. Wash them before and after eating, and after spending time in public places. Wash them after using the bathroom, changing diapers, or helping a child use the bathroom. Ask those around you to also wash their hands often. ?? Stay away from some foods. Don?t eat uncooked or undercooked meat or fish. Wash fruits and vegetables before eating. You may also be told not to eat raw vegetables or thin-skinned fruits during your milvia. ?? Reduce your risk for illness. During this time, your body is less able to fight off colds and other illnesses. Stay away from anyone who has a fever or an infection. Ask your healthcare provider if you need to get any vaccines. ?? Wear gloves. Make it harder for infections to get into your body. Wear gloves when you work around germs and dirt. Have someone else clean a pet?s tank, cage, or litter box. ?? Try not to cut yourself. Protect your feet from injury and germs by not walking barefoot. Use anelectric shaver. Be careful when using knives or other sharp objects. If you get a cut or scrape, wash it with soap and clean water. Cover it with a clean bandage. ?? Stay away from crowds. This is especially important during your milvia. Wear a mask if you have to be in a crowd. How medicines can help You may need to take medicines to: ?? Prevent and treat infection. Antibiotics attack and kill the germs that cause infection from bacteria. You may also need to take antiviral and antifungal medicines. ?? Trigger new white blood cell growth. These medicines are called growth factors. They help your body make new white blood cells in your bone marrow. This help to fight infection. Filgrastim (and biosimilars) and pegfilgrastim are examples of growth factors. Neupogen is one of the names of this kind of medicine. Talk with your healthcare provider about the best medicines for you. In some cases, they may tell you to not take acetaminophen or nonsteroidal anti- inflammatory drugs for pain. This is because thesemedicines can hide a fever if you have a low white blood cell count (neutropenia). Talk with your healthcare provider about medicine for pain if you need it during your milvia period. When to call your healthcare provider Contact your healthcare provider right away if you have any of the following: ?? Fever of 100.4??F (38??C) or higher, or as directed by your healthcare provider ?? Chills ?? Burning when you urinate ?? Coughing, nasal congestion, or sore throat ?? Shortness of breath ?? Vomiting or diarrhea ?? Pain, redness, or swelling, especially near an open wound or catheter site Last Reviewed Date: 2023 ?? [id number] [employer] All rights reserved. This information is not intended as a substitute for professional medical care. Always follow your healthcare professional's instructions. ST REPRESENTATIVE documented in this encounter Plan of Treatment Upcoming Encounters Date Type Department Care Team (Late st Contact Info) Description 10/27/2024 10:30 AM ARTIST REPRESENTATIVE Appointment [facility] [address] [place] [address] Hussain Carias MD [address] [place] [phone] Britni Winston PA-C [address] [place] [address] 11/17/2024 9:00 AM ARTIST REPRESENTATIVE Office Visit [facility] - Ophthalmology [address] [place] [phone] Song Hobson MD [address] [place] [address] [place] [phone] Pending Results Name Type Priority Associated Diagnoses Date/Time TRANSFUSE PLATELET PHERESIS UNIT(S), 1 Units NSG BLD TRANSFUSION Routine 09/23/2023 7 :08 AM ARTIST REPRESENTATIVE TRANSFUSE PLATELET PHERESIS UNIT(S) NSG BLD TRANSFUSION Routine 09/23/2023 7:06 AM ARTIST REPRESENTATIVE TRANSFUSE RED BLOOD CELL LEUKOREDUCED UNIT(S), 1 Units NSG BLD TRANSFUSION Routine 09/25/2023 2:56 AM ARTIST REPRESENTATIVE TRANSFUSE RED BLOOD CELL LEUKOREDUCED UNIT(S) NSG BLD TRANSFUSION Routine 09/25/2023 2 :46 AM ARTIST REPRESENTATIVE CYTOLOGY NON-ELECTRONICS TESTER PANEL (STL) Pathology Cytology Routine 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) 10/06/2023 3:23 PM ARTIST REPRESENTATIVE Scheduled Orders Name Type Priority Associated Diagnoses Orde r Schedule CYTOLOGY NON-ELECTRONICS TESTER PANEL (STL) Pathology Cytology Routine 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) ONCE for 1 Occurrences starting 10/03/2023 until 10/03/2023 Scheduled Referrals Name Type Priority Associated Diagnoses Order Schedule Ref to Neurosurgery [facility] Outpatient Referral Routine 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) Abnormal imaging of central nervous system Ordered: 10/01/2023 Ref to Ophthalmology [facility] Outpatient Referral Routine IIH (idiopathic intracranial hypertension) Ordered: 10/09/2023 Referral to Neurology Outpatient Referral Routine IIH (idiopathic intracranial hypertension) 1 Occurrences starting 10/09/2023 until 10/09/2024 Ref to [facility] Referral Routine IIH (idiopathic intracranial hypertension) 1 Occurrences starting 10/09/2023 until 10/09/2024 documented as of this encounter Procedures Procedure Name Priority Date/Time Associated Diagnosis Comments TRANSFUSE RED BLOOD CELL LEUKOREDUCED UNIT(S) Routine 10/09/2023 2:21 PM ARTIST REPRESENTATIVE PREPARE RBC LEUKOREDUCED UNIT STAT 10/09/2023 2:05 PM ARTIST REPRESENTATIVE TYPE + SCREEN PANEL STAT 10/09/2023 9 :01 AM ARTIST REPRESENTATIVE BLOOD GASES ROMERO + COOX PANEL Routine 10/09/2023 6:04 AM ARTIST REPRESENTATIVE FIBRINOGEN ACTIVITY Routine 10/08/2023 9 :52 PM ARTIST REPRESENTATIVE DIFFERENTIAL MANUAL Routine 10/08/2023 9 :52 PM ARTIST REPRESENTATIVE CBC W AUTO DIFFERENTIAL Routine 10/08/19 9:52 PM ARTIST REPRESENTATIVE COMPREHENSIVE METABOLIC PANEL Routine 10/08/2023 9:52 PM ARTIST REPRESENTATIVE PHOSPHORUS BLOOD Timed 10/08/2023 9:52 PM ARTIST REPRESENTATIVE MAGNESIUM BLOOD Timed 10/08/2023 9:52 PM ARTIST REPRESENTATIVE GLUCOSE - POINT OF CARE Routine 10/08/19 2:33 AM ARTIST REPRESENTATIVE FIBRINOGEN ACTIVITY Routine 10/07/2023 8 :31 PM ARTIST REPRESENTATIVE DIFFERENTIAL MANUAL Routine 10/07/2023 8 :31 PM ARTIST REPRESENTATIVE CBC W AUTO DIFFERENTIAL Routine 10/07/19 8:31 PM ARTIST REPRESENTATIVE COMPREHENSIVE METABOLIC PANEL Routine 10/07/2023 8:31 PM ARTIST REPRESENTATIVE PHOSPHORUS BLOOD Timed 10/07/2023 8:31 PM ARTIST REPRESENTATIVE MAGNESIUM BLOOD Timed 10/07/2023 8:31 PM ARTIST REPRESENTATIVE GLUCOSE - POINT OF CARE Routine 10/07/19 3:21 AM ARTIST REPRESENTATIVE FIBRINOGEN ACTIVITY Routine 10/06/2023 8 :41 PM ARTIST REPRESENTATIVE CBC W AUTO DIFFERENTIAL Routine 10/06/19 8:41 PM ARTIST REPRESENTATIVE COMPREHENSIVE METABOLIC PANEL Routine 10/06/2023 8:41 PM ARTIST REPRESENTATIVE PHOSPHORUS BLOOD Timed 10/06/2023 8:41 PM ARTIST REPRESENTATIVE MAGNESIUM BLOOD Timed 10/06/2023 8:41 PM ARTIST REPRESENTATIVE GLUCOSE - POINT OF CARE Routine 10/06/19 6:08 PM ARTIST REPRESENTATIVE FL LUMBAR PUNCT FOR CHEMO INJ Routine 10/06/2023 3:30 PM ARTIST REPRESENTATIVE 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) FLOW CYTOMETRY BODY FLUID Routine 10/06/2023 3:24 PM ARTIST REPRESENTATIVE 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) HOLD SPECIMEN CSF Routine 10/06/2023 3:2 4 PM ARTIST REPRESENTATIVE MENINGITIS/ENCEPHALITIS PANEL CSF Routine 10/06/2023 3:24 PM ARTIST REPRESENTATIVE CULTURE CSF+GRAM STAIN Routine 3:24 PM ARTIST REPRESENTATIVE CELL COUNT W DIFFERENTIAL CSF STAT 10/06/2023 3:24 PM ARTIST REPRESENTATIVE PROTEIN CSF LESLY 10/06/2023 3:24 PM ARTIST REPRESENTATIVE GLUCOSE CSF Routine 10/06/2023 3:24 PM ARTIST REPRESENTATIVE CYTOLOGY NON-ELECTRONICS TESTER PANEL (STL) Routine 10/06/2023 3:23 PM ARTIST REPRESENTATIVE 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) GLUCOSE - POINT OF CARE Routine 10/06/19 1:13 PM ARTIST REPRESENTATIVE GLUCOSE - POINT OF CARE Routine 10/06/19 9:08 AM ARTIST REPRESENTATIVE FIBRINOGEN ACTIVITY Routine 10/05/2023 8 :51 PM ARTIST REPRESENTATIVE CBC W AUTO DIFFERENTIAL Routine 10/05/19 8:51 PM ARTIST REPRESENTATIVE COMPREHENSIVE METABOLIC PANEL Routine 10/05/2023 8:51 PM ARTIST REPRESENTATIVE PHOSPHORUS BLOOD Timed 10/05/2023 8:51 PM ARTIST REPRESENTATIVE MAGNESIUM BLOOD Timed 10/05/2023 8:51 PM ARTIST REPRESENTATIVE GLUCOSE - POINT OF CARE Routine 10/05/19 24 2:09 AM ARTIST REPRESENTATIVE FIBRINOGEN ACTIVITY Routine 10/04/2023 1 1:11 PM ARTIST REPRESENTATIVE DIFFERENTIAL MANUAL Routine 10/04/2023 1 1:11 PM ARTIST REPRESENTATIVE CBC W AUTO DIFFERENTIAL Routine 10/04/19 11:11 PM ARTIST REPRESENTATIVE COMPREHENSIVE METABOLIC PANEL Routine 10/04/2023 11:11 PM ARTIST REPRESENTATIVE PHOSPHORUS BLOOD Timed 10/04/2023 11:1 1 PM ARTIST REPRESENTATIVE MAGNESIUM BLOOD Timed 10/04/2023 11:11 PM ARTIST REPRESENTATIVE GLUCOSE - POINT OF CARE Routine 10/04/19 11:02 PM ARTIST REPRESENTATIVE GLUCOSE - POINT OF CARE Routine 10/04/19 4:23 PM ARTIST REPRESENTATIVE GLUCOSE - POINT OF CARE Routine 10/04/19 12:43 PM ARTIST REPRESENTATIVE GLUCOSE - POINT OF CARE Routine 10/04/19 8:47 AM ARTIST REPRESENTATIVE FIBRINOGEN ACTIVITY Routine 10/03/2023 9 :02 PM ARTIST REPRESENTATIVE DIFFERENTIAL MANUAL Routine 10/03/2023 9 :02 PM ARTIST REPRESENTATIVE CBC W AUTO DIFFERENTIAL Routine 10/03/19 9:02 PM ARTIST REPRESENTATIVE COMPREHENSIVE METABOLIC PANEL Routine 10/03/2023 9:02 PM ARTIST REPRESENTATIVE PHOSPHORUS BLOOD Timed 10/03/2023 9:02 PM ARTIST REPRESENTATIVE MAGNESIUM BLOOD Timed 10/03/2023 9:02 PM ARTIST REPRESENTATIVE GLUCOSE - POINT OF CARE Routine 10/03/19 8:36 PM ARTIST REPRESENTATIVE GLUCOSE - POINT OF CARE Routine 10/03/19 5:13 PM ARTIST REPRESENTATIVE GLUCOSE - POINT OF CARE Routine 10/03/19 11:09 AM ARTIST REPRESENTATIVE GLUCOSE - POINT OF CARE Routine 10/03/19 24 7:47 AM ARTIST REPRESENTATIVE MRI ANGIO BRAIN VENOUS WWO CONT Routine 10/03/2023 12:31 AM ARTIST REPRESENTATIVE Abnormal imaging of central nervous system FIBRINOGEN ACTIVITY Routine 10/02/2023 9 :32 PM ARTIST REPRESENTATIVE DIFFERENTIAL MANUAL Routine 10/02/2023 9 :32 PM ARTIST REPRESENTATIVE CBC W AUTO DIFFERENTIAL Routine 10/02/19 9:32 PM ARTIST REPRESENTATIVE COMPREHENSIVE METABOLIC PANEL Routine 10/02/2023 9:32 PM ARTIST REPRESENTATIVE PHOSPHORUS BLOOD Timed 10/02/2023 9:32 PM ARTIST REPRESENTATIVE MAGNESIUM BLOOD Timed 10/02/2023 9:32 PM ARTIST REPRESENTATIVE GLUCOSE - POINT OF CARE Routine 10/02/19 24 8:59 PM ARTIST REPRESENTATIVE GLUCOSE - POINT OF CARE Routine 10/02/19 24 5:44 PM ARTIST REPRESENTATIVE GLUCOSE - POINT OF CARE Routine 10/02/19 24 1:49 PM ARTIST REPRESENTATIVE GLUCOSE - POINT OF CARE Routine 10/02/19 24 8:21 AM ARTIST REPRESENTATIVE FIBRINOGEN ACTIVITY Routine 10/01/2023 9 :19 PM ARTIST REPRESENTATIVE DIFFERENTIAL MANUAL Routine 10/01/2023 9 :19 PM ARTIST REPRESENTATIVE CBC W AUTO DIFFERENTIAL Routine 10/01/19 24 9:19 PM ARTIST REPRESENTATIVE COMPREHENSIVE METABOLIC PANEL Routine 10/01/2023 9:19 PM ARTIST REPRESENTATIVE PHOSPHORUS BLOOD Timed 10/01/2023 9:19 PM ARTIST REPRESENTATIVE MAGNESIUM BLOOD Timed 10/01/2023 9:19 PM ARTIST REPRESENTATIVE GLUCOSE - POINT OF CARE Routine 10/01/19 24 8:07 PM ARTIST REPRESENTATIVE XR ABD OBSTRUCTION SERIES 2VW STAT 10/01/2023 7:39 PM ARTIST REPRESENTATIVE Nausea and vomiting, unspecified vomiting type GLUCOSE - POINT OF CARE Routine 10/01/19 24 5:54 PM ARTIST REPRESENTATIVE FISH AML PANEL BLOOD OR BM RFLX PML/BENY Routine 10/01/2023 1:50 PM ARTIST REPRESENTATIVE 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) FLOW CYTOMETRY BONE MARROW Routine 10/01/2023 1:50 PM ARTIST REPRESENTATIVE 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) BONE MARROW BIOPSY (STL) Routine 10/01/2023 1:50 PM ARTIST REPRESENTATIVE 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) MYELOID MALIGNANCIES MUTATION PNL Routine 10/01/2023 1:50 PM ARTIST REPRESENTATIVE 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) LAB MISC TEST (NOT BLOOD) Routine 10/01/2023 1:50 PM ARTIST REPRESENTATIVE LAB MISC TEST (NOT BLOOD) Routine 10/01/2023 1:50 PM ARTIST REPRESENTATIVE LAB MISC TEST (NOT BLOOD) Routine 10/01/2023 1:50 PM ARTIST REPRESENTATIVE FISH PML/BENY PANEL Routine 10/01/2023 1 :50 PM ARTIST REPRESENTATIVE 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) CHROMOSOME ANALYSIS BONE MARROW PANEL Routine 10/01/2023 1:50 PM ARTIST REPRESENTATIVE 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) GLUCOSE - POINT OF CARE Routine 10/01/19 11:[address] HEAD WO CONTRAST Routine 10/01/2023 1 1:01 AM ARTIST REPRESENTATIVE Abnormal imaging of central nervous system FL LUMBAR PUNCT FOR CHEMO INJ Routine 10/01/2023 10:51 AM ARTIST REPRESENTATIVE Abnormal imaging of central nervous system FLOW CYTOMETRY BODY FLUID Routine 10/01/2023 10:03 AM ARTIST REPRESENTATIVE Abnormal imaging of central nervous system CYTOLOGY NON-ELECTRONICS TESTER PANEL (STL) Routine 10/01/2023 10:02 AM ARTIST REPRESENTATIVE Abnormal imaging of central nervous system GLUCOSE - POINT OF CARE Routine 10/01/19 7:[address] ANGIO BRAIN AND NECK Routine 10/01/19 12:28 AM ARTIST REPRESENTATIVE Abnormal imaging of central nervous system GLUCOSE - POINT OF CARE Routine 09/30/19 9:15 PM ARTIST REPRESENTATIVE FIBRINOGEN ACTIVITY Routine 09/30/2023 8 :09 PM ARTIST REPRESENTATIVE DIFFERENTIAL MANUAL Routine 09/30/2023 8 :09 PM ARTIST REPRESENTATIVE CBC W AUTO DIFFERENTIAL Routine 09/30/19 8:09 PM ARTIST REPRESENTATIVE COMPREHENSIVE METABOLIC PANEL Routine 09/30/2023 8:09 PM ARTIST REPRESENTATIVE PHOSPHORUS BLOOD Timed 09/30/2023 8:09 PM ARTIST REPRESENTATIVE MAGNESIUM BLOOD Timed 09/30/2023 8:09 PM ARTIST REPRESENTATIVE TRANSFUSE PLATELET PHERESIS UNIT(S) Routine 09/30/2023 6:18 PM ARTIST REPRESENTATIVE PREPARE PLATELET PHERESIS UNIT(S) Routine 09/30/2023 6:06 PM ARTIST REPRESENTATIVE GLUCOSE - POINT OF CARE Routine 09/30/19 5:[address] HEAD WO CONTRAST STAT 09/30/2023 1 :08 PM ARTIST REPRESENTATIVE Abnormal imaging of central nervous system GLUCOSE - POINT OF CARE Routine 09/30/19 12:43 PM ARTIST REPRESENTATIVE GLUCOSE - POINT OF CARE Routine 09/30/19 8:17 AM ARTIST REPRESENTATIVE GLUCOSE - POINT OF CARE Routine 09/30/19 6:43 AM ARTIST REPRESENTATIVE FIBRINOGEN ACTIVITY AM Draw 09/30/2023 2 :09 AM ARTIST REPRESENTATIVE DIFFERENTIAL MANUAL Routine 09/29/2023 9 :30 PM ARTIST REPRESENTATIVE CBC W AUTO DIFFERENTIAL Routine 09/29/19 9:30 PM ARTIST REPRESENTATIVE COMPREHENSIVE METABOLIC PANEL Routine 09/29/2023 9:30 PM ARTIST REPRESENTATIVE PHOSPHORUS BLOOD Timed 09/29/2023 9:30 PM ARTIST REPRESENTATIVE MAGNESIUM BLOOD Timed 09/29/2023 9:30 PM ARTIST REPRESENTATIVE GLUCOSE - POINT OF CARE Routine 09/29/19 9:22 PM ARTIST REPRESENTATIVE MRI ORBITS OR FACE WWO CONTRAST Routine 09/29/2023 9:19 PM ARTIST REPRESENTATIVE 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) MRI BRAIN WWO CONTRAST Routine 9:18 PM ARTIST REPRESENTATIVE 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) GLUCOSE - POINT OF CARE Routine 09/29/19 4:36 PM ARTIST REPRESENTATIVE TRANSFUSION REACTION PANEL Routine 09/29/2023 4:05 PM ARTIST REPRESENTATIVE GLUCOSE - POINT OF CARE Routine 09/29/19 11:59 AM ARTIST REPRESENTATIVE GLUCOSE - POINT OF CARE Routine 09/29/19 8:51 AM ARTIST REPRESENTATIVE PREPARE PLATELET PHERESIS UNIT(S) Routine 09/29/2023 1:17 AM ARTIST REPRESENTATIVE DIFFERENTIAL MANUAL Routine 09/28/2023 8 :20 PM ARTIST REPRESENTATIVE CBC W AUTO DIFFERENTIAL Routine 09/28/19 8:20 PM ARTIST REPRESENTATIVE COMPREHENSIVE METABOLIC PANEL Routine 09/28/2023 8:20 PM ARTIST REPRESENTATIVE PHOSPHORUS BLOOD Timed 09/28/2023 8:20 PM ARTIST REPRESENTATIVE MAGNESIUM BLOOD Timed 09/28/2023 8:20 PM ARTIST REPRESENTATIVE GLUCOSE - POINT OF CARE Routine 09/28/19 8:14 PM ARTIST REPRESENTATIVE GLUCOSE - POINT OF CARE Routine 09/28/19 4:42 PM ARTIST REPRESENTATIVE GLUCOSE - POINT OF CARE Routine 09/28/19 1:00 PM ARTIST REPRESENTATIVE XR CHEST 1VW PORTABLE Routine 09/28/2023 11:51 AM ARTIST REPRESENTATIVE Acute cough GLUCOSE - POINT OF CARE Routine 09/28/19 8:42 AM ARTIST REPRESENTATIVE GLUCOSE - POINT OF CARE Routine 09/27/19 8:21 PM ARTIST REPRESENTATIVE DIFFERENTIAL MANUAL Routine 09/27/2023 8 :20 PM ARTIST REPRESENTATIVE CBC W AUTO DIFFERENTIAL Routine 09/27/19 8:20 PM ARTIST REPRESENTATIVE COMPREHENSIVE METABOLIC PANEL Routine 09/27/2023 8:20 PM ARTIST REPRESENTATIVE PHOSPHORUS BLOOD Timed 09/27/2023 8:20 PM ARTIST REPRESENTATIVE MAGNESIUM BLOOD Timed 09/27/2023 8:20 PM ARTIST REPRESENTATIVE GLUCOSE - POINT OF CARE Routine 09/27/19 5:39 PM ARTIST REPRESENTATIVE GLUCOSE - POINT OF CARE Routine 09/27/19 12:41 PM ARTIST REPRESENTATIVE ECHO LIMITED OR FOLLOWUP Routine 09/27/2023 9:36 AM ARTIST REPRESENTATIVE Sinus tachycardia GLUCOSE - POINT OF CARE Routine 09/27/19 8:28 AM ARTIST REPRESENTATIVE HEMOGLOBIN A1C Routine 09/27/2023 12:48 AM ARTIST REPRESENTATIVE DIFFERENTIAL MANUAL Routine 09/27/2023 1 2:48 AM ARTIST REPRESENTATIVE CBC W AUTO DIFFERENTIAL Routine 09/27/19 12:48 AM ARTIST REPRESENTATIVE COMPREHENSIVE METABOLIC PANEL Routine 09/27/2023 12:48 AM ARTIST REPRESENTATIVE PHOSPHORUS BLOOD Timed 09/27/2023 12:4 8 AM ARTIST REPRESENTATIVE MAGNESIUM BLOOD Timed 09/27/2023 12:48 AM ARTIST REPRESENTATIVE GLUCOSE - POINT OF CARE Routine 09/26/19 7:53 PM ARTIST REPRESENTATIVE GLUCOSE - POINT OF CARE Routine 09/26/19 5:24 PM ARTIST REPRESENTATIVE BASIC METABOLIC PANEL (CALCIUM TOTAL) Timed 09/26/2023 3:01 PM ARTIST REPRESENTATIVE PHOSPHORUS BLOOD Timed 09/26/2023 3:01 PM ARTIST REPRESENTATIVE GLUCOSE - POINT OF CARE Routine 09/26/19 12:07 PM ARTIST REPRESENTATIVE XR CHEST 1VW PORTABLE STAT 09/26/2023 10:16 AM ARTIST REPRESENTATIVE Tachycardia Sinus tachycardia BASIC METABOLIC PANEL (CALCIUM TOTAL) Routine 09/26/2023 9:41 AM ARTIST REPRESENTATIVE PHOSPHORUS BLOOD Routine 09/26/2023 9:41 AM ARTIST REPRESENTATIVE OSMOLALITY BLOOD Routine 09/26/2023 9:41 AM ARTIST REPRESENTATIVE SODIUM URINE RANDOM Routine 09/26/2023 9 :12 AM ARTIST REPRESENTATIVE OSMOLALITY URINE LESLY 09/26/2023 9:12 AM ARTIST REPRESENTATIVE GLUCOSE - POINT OF CARE Routine 09/26/19 24 8:59 AM ARTIST REPRESENTATIVE URIC ACID BLOOD Routine 09/25/2023 7:54 PM ARTIST REPRESENTATIVE CBC W AUTO DIFFERENTIAL Routine 09/25/19 24 7:54 PM ARTIST REPRESENTATIVE COMPREHENSIVE METABOLIC PANEL Routine 09/25/2023 7:54 PM ARTIST REPRESENTATIVE PHOSPHORUS BLOOD Timed 09/25/2023 7:54 PM ARTIST REPRESENTATIVE MAGNESIUM BLOOD Timed 09/25/2023 7:54 PM ARTIST REPRESENTATIVE TRANSFUSE PLATELET PHERESIS UNIT(S) Routine 09/25/2023 4:26 PM ARTIST REPRESENTATIVE PREPARE PLATELET PHERESIS UNIT(S) Routine 09/25/2023 4:12 PM ARTIST REPRESENTATIVE TROPONIN-I HIGH SENSITIVE STAT 09/25/2023 2:33 PM ARTIST REPRESENTATIVE CBC W/O DIFFERENTIAL Routine 09/25/2023 2:33 PM ARTIST REPRESENTATIVE B-TYPE NATRIURETIC PEPTIDE Routine 09/25/2023 2:33 PM ARTIST REPRESENTATIVE BASIC METABOLIC PANEL (CALCIUM TOTAL) Routine 09/25/2023 2:04 PM ARTIST REPRESENTATIVE EKG 12-LEAD STAT 09/25/2023 10:14 AM ARTIST REPRESENTATIVE Tachycardia TRANSFUSE RED BLOOD CELL LEUKOREDUCED UNIT(S) Routine 09/25/2023 2:46 AM ARTIST REPRESENTATIVE PREPARE RBC LEUKOREDUCED UNIT Routine 09/25/2023 2:31 AM ARTIST REPRESENTATIVE TYPE + SCREEN PANEL STAT 09/25/2023 1 :30 AM ARTIST REPRESENTATIVE BLOOD GASES ART + COOX PANEL STAT 09/25/2023 12:14 AM ARTIST REPRESENTATIVE URIC ACID BLOOD Routine 09/24/2023 8:06 PM ARTIST REPRESENTATIVE CBC W AUTO DIFFERENTIAL Routine 09/24/19 8:06 PM ARTIST REPRESENTATIVE COMPREHENSIVE METABOLIC PANEL Routine 09/24/2023 8:06 PM ARTIST REPRESENTATIVE PHOSPHORUS BLOOD Timed 09/24/2023 8:06 PM ARTIST REPRESENTATIVE MAGNESIUM BLOOD Timed 09/24/2023 8:06 PM ARTIST REPRESENTATIVE URIC ACID BLOOD Routine 09/24/2023 1:08 AM ARTIST REPRESENTATIVE CBC W AUTO DIFFERENTIAL Routine 09/24/19 1:08 AM ARTIST REPRESENTATIVE COMPREHENSIVE METABOLIC PANEL Routine 09/24/2023 1:08 AM ARTIST REPRESENTATIVE PHOSPHORUS BLOOD Timed 09/24/2023 1:08 AM ARTIST REPRESENTATIVE MAGNESIUM BLOOD Timed 09/24/2023 1:08 AM ARTIST REPRESENTATIVE CBC W AUTO DIFFERENTIAL STAT 09/23/19 2:06 PM ARTIST REPRESENTATIVE TRANSFUSE PLATELET PHERESIS UNIT(S) Routine 09/23/2023 7:06 AM ARTIST REPRESENTATIVE PREPARE PLATELET PHERESIS UNIT(S) Routine 09/23/2023 7:00 AM ARTIST REPRESENTATIVE GLUCOSE - POINT OF CARE Routine 09/23/19 5:07 AM ARTIST REPRESENTATIVE URIC ACID BLOOD Routine 09/23/2023 2:09 AM ARTIST REPRESENTATIVE CBC W AUTO DIFFERENTIAL Routine 09/23/19 2:09 AM ARTIST REPRESENTATIVE VANCOMYCIN LEVEL TROUGH Timed 09/23/19 2:09 AM ARTIST REPRESENTATIVE GLUCOSE - POINT OF CARE Routine 09/22/19 11:29 PM ARTIST REPRESENTATIVE COMPREHENSIVE METABOLIC PANEL Routine 09/22/2023 10:21 PM ARTIST REPRESENTATIVE PHOSPHORUS BLOOD Timed 09/22/2023 10:2 1 PM ARTIST REPRESENTATIVE MAGNESIUM BLOOD Timed 09/22/2023 10:21 PM ARTIST REPRESENTATIVE VANCOMYCIN LEVEL PEAK Timed 09/22/2023 10:[address] ANGIO CHEST PULM EMBOLISM Routine 09/22/2023 8:14 PM ARTIST REPRESENTATIVE Tachycardia GLUCOSE - POINT OF CARE Routine 09/22/19 7:51 PM ARTIST REPRESENTATIVE CULTURE BLOOD Timed 09/22/2023 6:24 PM ARTIST REPRESENTATIVE MRSA DNA PCR STAT 09/22/2023 6:22 PM ARTIST REPRESENTATIVE RESPIRATORY PANEL WITH SARS-COV-2 BY PCR (STL) Routine 09/22/2023 6:21 PM ARTIST REPRESENTATIVE LACTIC ACID BLOOD REFLEX TO REPEAT Timed 09/22/2023 5:42 PM ARTIST REPRESENTATIVE CBC W AUTO DIFFERENTIAL Routine 09/22/19 5:42 PM ARTIST REPRESENTATIVE XR CHEST 1VW PORTABLE Routine 09/22/2023 5:10 PM ARTIST REPRESENTATIVE 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) VAS BILATERAL VENOUS DUPLEX LE Routine 09/22/2023 1:20 PM ARTIST REPRESENTATIVE Tachycardia URIC ACID BLOOD Routine 09/22/2023 1:15 AM ARTIST REPRESENTATIVE CBC W AUTO DIFFERENTIAL Routine 09/22/19 1:15 AM ARTIST REPRESENTATIVE COMPREHENSIVE METABOLIC PANEL Routine 09/22/2023 1:15 AM ARTIST REPRESENTATIVE PHOSPHORUS BLOOD Timed 09/22/2023 1:15 AM ARTIST REPRESENTATIVE MAGNESIUM BLOOD Timed 09/22/2023 1:15 AM ARTIST REPRESENTATIVE TRANSFUSE RED BLOOD CELL LEUKOREDUCED UNIT(S) Routine 09/21/2023 10:14 PM ARTIST REPRESENTATIVE PREPARE RBC LEUKOREDUCED UNIT Routine 09/21/2023 10:06 PM ARTIST REPRESENTATIVE TYPE + SCREEN PANEL STAT 09/21/2023 8 :18 PM ARTIST REPRESENTATIVE CBC W AUTO DIFFERENTIAL Routine 09/21/19 24 4:12 PM ARTIST REPRESENTATIVE PLATELET COUNT AUTO Routine 09/21/2023 6 :17 AM ARTIST REPRESENTATIVE TRANSFUSE PLATELET PHERESIS UNIT(S) Routine 09/21/2023 5:21 AM ARTIST REPRESENTATIVE PREPARE PLATELET PHERESIS UNIT(S) Routine 09/21/2023 5:12 AM ARTIST REPRESENTATIVE CBC W AUTO DIFFERENTIAL Routine 09/21/19 24 2:16 AM ARTIST REPRESENTATIVE COMPREHENSIVE METABOLIC PANEL Routine 09/21/2023 2:16 AM ARTIST REPRESENTATIVE PHOSPHORUS BLOOD Timed 09/21/2023 2:16 AM ARTIST REPRESENTATIVE MAGNESIUM BLOOD Timed 09/21/2023 2:16 AM ARTIST REPRESENTATIVE CBC W AUTO DIFFERENTIAL Routine 09/20/19 24 4:11 PM ARTIST REPRESENTATIVE CBC W AUTO DIFFERENTIAL Routine 09/20/19 24 3:53 AM ARTIST REPRESENTATIVE TRANSFUSE RED BLOOD CELL LEUKOREDUCED UNIT(S) Routine 09/20/2023 1:12 AM ARTIST REPRESENTATIVE PREPARE RBC LEUKOREDUCED UNIT Routine 09/20/2023 12:46 AM ARTIST REPRESENTATIVE TYPE + SCREEN PANEL Routine 09/19/2023 1 1:52 PM ARTIST REPRESENTATIVE CBC W AUTO DIFFERENTIAL Routine 09/19/19 24 9:30 PM ARTIST REPRESENTATIVE COMPREHENSIVE METABOLIC PANEL Routine 09/19/2023 9:30 PM ARTIST REPRESENTATIVE PHOSPHORUS BLOOD Timed 09/19/2023 9:30 PM ARTIST REPRESENTATIVE MAGNESIUM BLOOD Timed 09/19/2023 9:30 PM ARTIST REPRESENTATIVE EKG 12-LEAD STAT 09/19/2023 2:40 PM ARTIST REPRESENTATIVE Tachycardia FLOW CYTOMETRY BONE MARROW Routine 09/19/2023 11:35 AM ARTIST REPRESENTATIVE 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) BONE MARROW BIOPSY (STL) Routine 09/19/2023 11:35 AM ARTIST REPRESENTATIVE 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) DIFFERENTIAL MANUAL Routine 09/18/2023 1 0:25 PM ARTIST REPRESENTATIVE CBC W AUTO DIFFERENTIAL Routine 09/18/19 24 10:25 PM ARTIST REPRESENTATIVE COMPREHENSIVE METABOLIC PANEL Routine 09/18/2023 10:25 PM ARTIST REPRESENTATIVE PHOSPHORUS BLOOD Routine 09/18/2023 10:2 5 PM ARTIST REPRESENTATIVE MAGNESIUM BLOOD Routine 09/18/2023 10:25 PM ARTIST REPRESENTATIVE CBC W AUTO DIFFERENTIAL Routine 09/18/19 10:18 AM ARTIST REPRESENTATIVE TRANSFUSE PLATELET PHERESIS UNIT(S) Routine 09/18/2023 12:04 AM ARTIST REPRESENTATIVE PREPARE PLATELET PHERESIS UNIT(S) Routine 09/17/2023 11:58 PM ARTIST REPRESENTATIVE DIFFERENTIAL MANUAL Routine 09/17/2023 8 :29 PM ARTIST REPRESENTATIVE CBC W AUTO DIFFERENTIAL Routine 09/17/19 24 8:29 PM ARTIST REPRESENTATIVE COMPREHENSIVE METABOLIC PANEL Routine 09/17/2023 8:29 PM ARTIST REPRESENTATIVE DIFFERENTIAL MANUAL Routine 09/16/2023 8 :20 PM ARTIST REPRESENTATIVE CBC W AUTO DIFFERENTIAL Routine 09/16/19 8:20 PM ARTIST REPRESENTATIVE COMPREHENSIVE METABOLIC PANEL Routine 09/16/2023 8:20 PM ARTIST REPRESENTATIVE TYPE + SCREEN PANEL Routine 09/15/2023 8 :40 PM ARTIST REPRESENTATIVE CBC W AUTO DIFFERENTIAL Routine 09/15/19 24 8:40 PM ARTIST REPRESENTATIVE COMPREHENSIVE METABOLIC PANEL Routine 09/15/2023 8:40 PM ARTIST REPRESENTATIVE XR ABDOMEN KUB STAT 09/15/2023 5:37 AM ARTIST REPRESENTATIVE Bloating TRANSFUSE PLATELET PHERESIS UNIT(S) Routine 09/15/2023 3:57 AM ARTIST REPRESENTATIVE PREPARE PLATELET PHERESIS UNIT(S) Routine 09/15/2023 3:37 AM ARTIST REPRESENTATIVE TRANSFUSE RED BLOOD CELL LEUKOREDUCED UNIT(S) Routine 09/15/2023 12:50 AM ARTIST REPRESENTATIVE PREPARE RBC LEUKOREDUCED UNIT Routine 09/15/2023 12:33 AM ARTIST REPRESENTATIVE CBC W AUTO DIFFERENTIAL Routine 09/14/20 23 9:50 PM ARTIST REPRESENTATIVE COMPREHENSIVE METABOLIC PANEL Routine 09/14/2023 9:50 PM ARTIST REPRESENTATIVE PHOSPHORUS BLOOD STAT 09/14/2023 9:50 PM ARTIST REPRESENTATIVE MAGNESIUM BLOOD STAT 09/14/2023 9:50 PM ARTIST REPRESENTATIVE GLUCOSE - POINT OF CARE Routine 09/14/20 7:39 AM ARTIST REPRESENTATIVE PTT SLH Routine 09/13/2023 8:52 PM ARTIST REPRESENTATIVE PT-INR SLH Routine 09/13/2023 8:52 PM ARTIST REPRESENTATIVE URIC ACID BLOOD Routine 09/13/2023 8:52 PM ARTIST REPRESENTATIVE D-DIMER Routine 09/13/2023 8:52 PM ARTIST REPRESENTATIVE FIBRINOGEN ACTIVITY Routine 09/13/2023 8 :52 PM ARTIST REPRESENTATIVE RETIC COUNT Routine 09/13/2023 8:52 PM ARTIST REPRESENTATIVE CBC W AUTO DIFFERENTIAL Routine 09/13/20 8:52 PM ARTIST REPRESENTATIVE COMPREHENSIVE METABOLIC PANEL Routine 09/13/2023 8:52 PM ARTIST REPRESENTATIVE LDH BLOOD Routine 09/13/2023 8:52 PM ARTIST REPRESENTATIVE HAPTOGLOBIN Routine 09/13/2023 8:52 PM ARTIST REPRESENTATIVE GLUCOSE - POINT OF CARE Routine 09/13/20 8:35 PM ARTIST REPRESENTATIVE GLUCOSE - POINT OF CARE Routine 09/13/20 4:56 PM ARTIST REPRESENTATIVE GLUCOSE - POINT OF CARE Routine 09/13/20 12:35 PM ARTIST REPRESENTATIVE GLUCOSE - POINT OF CARE Routine 09/13/20 8:07 AM ARTIST REPRESENTATIVE GLUCOSE - POINT OF CARE Routine 09/13/20 5:34 AM ARTIST REPRESENTATIVE PTT SLH Routine 09/12/2023 8:46 PM ARTIST REPRESENTATIVE PT-INR SLH Routine 09/12/2023 8:46 PM ARTIST REPRESENTATIVE URIC ACID BLOOD Routine 09/12/2023 8:46 PM ARTIST REPRESENTATIVE TYPE + SCREEN PANEL Routine 09/12/2023 8 :46 PM ARTIST REPRESENTATIVE D-DIMER Routine 09/12/2023 8:46 PM ARTIST REPRESENTATIVE FIBRINOGEN ACTIVITY Routine 09/12/2023 8 :46 PM ARTIST REPRESENTATIVE RETIC COUNT Routine 09/12/2023 8:46 PM ARTIST REPRESENTATIVE DIFFERENTIAL MANUAL Routine 09/12/2023 8 :46 PM ARTIST REPRESENTATIVE CBC W AUTO DIFFERENTIAL Routine 09/12/20 8:46 PM ARTIST REPRESENTATIVE COMPREHENSIVE METABOLIC PANEL Routine 09/12/2023 8:46 PM ARTIST REPRESENTATIVE LDH BLOOD Routine 09/12/2023 8:46 PM ARTIST REPRESENTATIVE HAPTOGLOBIN Routine 09/12/2023 8:46 PM ARTIST REPRESENTATIVE GLUCOSE - POINT OF CARE Routine 09/12/20 7:32 PM ARTIST REPRESENTATIVE GLUCOSE - POINT OF CARE Routine 09/12/20 4:27 PM ARTIST REPRESENTATIVE GLUCOSE - POINT OF CARE Routine 09/12/20 11:20 AM ARTIST REPRESENTATIVE GLUCOSE - POINT OF CARE Routine 09/12/20 7:46 AM ARTIST REPRESENTATIVE GLUCOSE - POINT OF CARE Routine 09/11/20 8:23 PM ARTIST REPRESENTATIVE PTT SLH Routine 09/11/2023 8:02 PM ARTIST REPRESENTATIVE PT-INR SLH Routine 09/11/2023 8:02 PM ARTIST REPRESENTATIVE URIC ACID BLOOD Routine 09/11/2023 8:02 PM ARTIST REPRESENTATIVE D-DIMER Routine 09/11/2023 8:02 PM ARTIST REPRESENTATIVE FIBRINOGEN ACTIVITY Routine 09/11/2023 8 :02 PM ARTIST REPRESENTATIVE RETIC COUNT Routine 09/11/2023 8:02 PM ARTIST REPRESENTATIVE DIFFERENTIAL MANUAL Routine 09/11/2023 8 :02 PM ARTIST REPRESENTATIVE CBC W AUTO DIFFERENTIAL Routine 09/11/20 8:02 PM ARTIST REPRESENTATIVE COMPREHENSIVE METABOLIC PANEL Routine 09/11/2023 8:02 PM ARTIST REPRESENTATIVE LDH BLOOD Routine 09/11/2023 8:02 PM ARTIST REPRESENTATIVE HAPTOGLOBIN Routine 09/11/2023 8:02 PM ARTIST REPRESENTATIVE GLUCOSE - POINT OF CARE Routine 09/11/20 4:41 PM ARTIST REPRESENTATIVE GLUCOSE - POINT OF CARE Routine 09/11/20 12:42 PM ARTIST REPRESENTATIVE URIC ACID BLOOD Routine 09/10/2023 9:11 PM ARTIST REPRESENTATIVE CBC W AUTO DIFFERENTIAL Routine 09/10/20 9:11 PM ARTIST REPRESENTATIVE COMPREHENSIVE METABOLIC PANEL Routine 09/10/2023 9:11 PM ARTIST REPRESENTATIVE PTT SLH Routine 09/09/2023 9:38 PM ARTIST REPRESENTATIVE PT-INR SLH Routine 09/09/2023 9:38 PM ARTIST REPRESENTATIVE URIC ACID BLOOD Routine 09/09/2023 9:38 PM ARTIST REPRESENTATIVE D-DIMER Routine 09/09/2023 9:38 PM ARTIST REPRESENTATIVE FIBRINOGEN ACTIVITY Routine 09/09/2023 9 :38 PM ARTIST REPRESENTATIVE RETIC COUNT Routine 09/09/2023 9:38 PM ARTIST REPRESENTATIVE CBC W AUTO DIFFERENTIAL Routine 09/09/20 9:38 PM ARTIST REPRESENTATIVE COMPREHENSIVE METABOLIC PANEL Routine 09/09/2023 9:38 PM ARTIST REPRESENTATIVE LDH BLOOD Routine 09/09/2023 9:38 PM ARTIST REPRESENTATIVE HAPTOGLOBIN Routine 09/09/2023 9:38 PM ARTIST REPRESENTATIVE TRANSFUSE RED BLOOD CELL LEUKOREDUCED UNIT(S) Routine 09/09/2023 2:25 AM ARTIST REPRESENTATIVE PREPARE RBC LEUKOREDUCED UNIT Routine 09/09/2023 2:01 AM ARTIST REPRESENTATIVE BLOOD TYPE VERIFICATION Routine 09/09/20 12:58 AM ARTIST REPRESENTATIVE TYPE + SCREEN PANEL STAT 09/09/2023 1 2:13 AM ARTIST REPRESENTATIVE PTT SLH Routine 09/08/2023 8:55 PM ARTIST REPRESENTATIVE PT-INR SLH Routine 09/08/2023 8:55 PM ARTIST REPRESENTATIVE URIC ACID BLOOD Routine 09/08/2023 8:55 PM ARTIST REPRESENTATIVE D-DIMER Routine 09/08/2023 8:55 PM ARTIST REPRESENTATIVE FIBRINOGEN ACTIVITY Routine 09/08/2023 8 :55 PM ARTIST REPRESENTATIVE RETIC COUNT Routine 09/08/2023 8:55 PM ARTIST REPRESENTATIVE CBC W AUTO DIFFERENTIAL Routine 09/08/20 8:55 PM ARTIST REPRESENTATIVE COMPREHENSIVE METABOLIC PANEL Routine 09/08/2023 8:55 PM ARTIST REPRESENTATIVE PHOSPHORUS BLOOD STAT 09/08/2023 8:55 PM ARTIST REPRESENTATIVE MAGNESIUM BLOOD STAT 09/08/2023 8:55 PM ARTIST REPRESENTATIVE LDH BLOOD Routine 09/08/2023 8:55 PM ARTIST REPRESENTATIVE HAPTOGLOBIN Routine 09/08/2023 8:55 PM ARTIST REPRESENTATIVE PTT SLH Routine 09/07/2023 8:08 PM ARTIST REPRESENTATIVE PT-INR SLH Routine 09/07/2023 8:08 PM ARTIST REPRESENTATIVE URIC ACID BLOOD Routine 09/07/2023 8:08 PM ARTIST REPRESENTATIVE D-DIMER Routine 09/07/2023 8:08 PM ARTIST REPRESENTATIVE FIBRINOGEN ACTIVITY Routine 09/07/2023 8 :08 PM ARTIST REPRESENTATIVE RETIC COUNT Routine 09/07/2023 8:08 PM ARTIST REPRESENTATIVE CBC W AUTO DIFFERENTIAL Routine 09/07/20 8:08 PM ARTIST REPRESENTATIVE COMPREHENSIVE METABOLIC PANEL Routine 09/07/2023 8:08 PM ARTIST REPRESENTATIVE LDH BLOOD Routine 09/07/2023 8:08 PM ARTIST REPRESENTATIVE HAPTOGLOBIN Routine 09/07/2023 8:08 PM ARTIST REPRESENTATIVE URIC ACID BLOOD Routine 09/07/2023 9:58 AM ARTIST REPRESENTATIVE PTT SLH Routine 09/06/2023 9:43 PM ARTIST REPRESENTATIVE PT-INR SLH Routine 09/06/2023 9:43 PM ARTIST REPRESENTATIVE CYTOMEGALOVIRUS ANTIBODY IGG BLOOD Timed 09/06/2023 9:43 PM ARTIST REPRESENTATIVE D-DIMER Routine 09/06/2023 9:43 PM ARTIST REPRESENTATIVE FIBRINOGEN ACTIVITY Routine 09/06/2023 9 :43 PM ARTIST REPRESENTATIVE RETIC COUNT Routine 09/06/2023 9:43 PM ARTIST REPRESENTATIVE DIFFERENTIAL MANUAL Routine 09/06/2023 9 :43 PM ARTIST REPRESENTATIVE CBC W AUTO DIFFERENTIAL Routine 09/06/20 9:43 PM ARTIST REPRESENTATIVE COMPREHENSIVE METABOLIC PANEL Routine 09/06/2023 9:43 PM ARTIST REPRESENTATIVE LDH BLOOD Routine 09/06/2023 9:43 PM ARTIST REPRESENTATIVE HAPTOGLOBIN Routine 09/06/2023 9:43 PM ARTIST REPRESENTATIVE HLA TYPING LOW/HIGH RESOLUTION DPB1 Routine 09/06/2023 5:15 PM ARTIST REPRESENTATIVE CYTOMEGALOVIRUS (CMV) QUANTITATIVE PLASMA AM Draw 09/06/2023 5:15 PM ARTIST REPRESENTATIVE HLA TYPING DNA LOW RESOLUTION DR,DQ Routine 09/06/2023 5:15 PM ARTIST REPRESENTATIVE HLA TYPING DNA LOW RESOLUTION A,B,C Routine 09/06/2023 5:15 PM ARTIST REPRESENTATIVE HLA TYPING DNA HIGH RESOLUTION DR Routine 09/06/2023 5:15 PM ARTIST REPRESENTATIVE HLA TYPING DNA HIGH RESOLUTION DQ Routine 09/06/2023 5:15 PM ARTIST REPRESENTATIVE HLA TYPING DNA HIGH RESOLUTION B Routine 09/06/2023 5:15 PM ARTIST REPRESENTATIVE HLA TYPING DNA HIGH RESOLUTION A Routine 09/06/2023 5:15 PM ARTIST REPRESENTATIVE HLA TYPING DNA HIGH RESOLUTION C Routine 09/06/2023 5:15 PM ARTIST REPRESENTATIVE URINALYSIS W/MICROSCOPIC REFLEX TO CULTURE Routine 09/06/2023 10:39 AM ARTIST REPRESENTATIVE Tonsillitis HCG URINE QUALITATIVE Routine 09/06/2023 10:39 AM ARTIST REPRESENTATIVE Tonsillitis PTT SLH Routine 09/06/2023 12:26 AM ARTIST REPRESENTATIVE PT-INR SLH Routine 09/06/2023 12:26 AM ARTIST REPRESENTATIVE D-DIMER Routine 09/06/2023 12:26 AM ARTIST REPRESENTATIVE FIBRINOGEN ACTIVITY Routine 09/06/2023 1 2:26 AM ARTIST REPRESENTATIVE RETIC COUNT Routine 09/06/2023 12:26 AM ARTIST REPRESENTATIVE DIFFERENTIAL MANUAL Routine 09/06/2023 1 2:26 AM ARTIST REPRESENTATIVE CBC W AUTO DIFFERENTIAL Routine 09/06/20 12:26 AM ARTIST REPRESENTATIVE COMPREHENSIVE METABOLIC PANEL Routine 09/06/2023 12:26 AM ARTIST REPRESENTATIVE LDH BLOOD Routine 09/06/2023 12:26 AM ARTIST REPRESENTATIVE HAPTOGLOBIN Routine 09/06/2023 12:26 AM ARTIST REPRESENTATIVE ECHO COMPLETE W BUBBLE STUDY Routine 09/05/2023 3:51 PM ARTIST REPRESENTATIVE 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) IR CENTRAL LINE INSERT TUNNEL Routine 09/05/2023 1:50 PM ARTIST REPRESENTATIVE 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) FISH AML PANEL BLOOD OR BM RFLX PML/BENY Routine 09/05/2023 10:35 AM ARTIST REPRESENTATIVE 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) FLOW CYTOMETRY BONE MARROW Routine 09/05/2023 10:35 AM ARTIST REPRESENTATIVE 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) BONE MARROW BIOPSY (STL) Routine 09/05/2023 10:35 AM ARTIST REPRESENTATIVE 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) MYELOID MALIGNANCIES MUTATION PNL Routine 09/05/2023 10:35 AM ARTIST REPRESENTATIVE 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) LAB MISC TEST (NOT BLOOD) Routine 09/05/2023 10:35 AM ARTIST REPRESENTATIVE LAB MISC TEST (NOT BLOOD) Routine 09/05/2023 10:35 AM ARTIST REPRESENTATIVE LAB MISC TEST (NOT BLOOD) Routine 09/05/2023 10:35 AM ARTIST REPRESENTATIVE FISH PML/BENY PANEL Routine 09/05/2023 1 0:35 AM ARTIST REPRESENTATIVE 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) CHROMOSOME ANALYSIS BONE MARROW PANEL Routine 09/05/2023 10:35 AM ARTIST REPRESENTATIVE 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) HCG URINE QUALITATIVE STAT 09/05/2023 9:46 AM ARTIST REPRESENTATIVE 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) PTT SLH Routine 09/05/2023 9:09 AM ARTIST REPRESENTATIVE PT-INR SLH Routine 09/05/2023 9:09 AM ARTIST REPRESENTATIVE D-DIMER Routine 09/05/2023 9:09 AM ARTIST REPRESENTATIVE RETIC COUNT Routine 09/05/2023 9:09 AM ARTIST REPRESENTATIVE DIFFERENTIAL MANUAL Routine 09/05/2023 9 :09 AM ARTIST REPRESENTATIVE CBC W AUTO DIFFERENTIAL Routine 09/05/20 9:09 AM ARTIST REPRESENTATIVE COMPREHENSIVE METABOLIC PANEL Routine 09/05/2023 9:09 AM ARTIST REPRESENTATIVE MAGNESIUM BLOOD Routine 09/05/2023 9:09 AM ARTIST REPRESENTATIVE LDH BLOOD Routine 09/05/2023 9:09 AM ARTIST REPRESENTATIVE HAPTOGLOBIN Routine 09/05/2023 9:08 AM ARTIST REPRESENTATIVE URIC ACID BLOOD STAT 09/04/2023 5:27 AM ARTIST REPRESENTATIVE COMPREHENSIVE METABOLIC PANEL STAT 09/04/2023 5:27 AM ARTIST REPRESENTATIVE PHOSPHORUS BLOOD STAT 09/04/2023 5:27 AM ARTIST REPRESENTATIVE MAGNESIUM BLOOD STAT 09/04/2023 5:27 AM ARTIST REPRESENTATIVE LDH BLOOD STAT 09/04/2023 5:27 AM ARTIST REPRESENTATIVE PTT SLH STAT 09/04/2023 5:26 AM ARTIST REPRESENTATIVE PT-INR SLH STAT 09/04/2023 5:26 AM ARTIST REPRESENTATIVE D-DIMER STAT 09/04/2023 5:26 AM ARTIST REPRESENTATIVE FIBRINOGEN ACTIVITY STAT 09/04/2023 5 :26 AM ARTIST REPRESENTATIVE PATHOLOGY PERIPHERAL SMEAR REVIEW Add on 09/04/2023 5:25 AM ARTIST REPRESENTATIVE RETIC COUNT STAT 09/04/2023 5:25 AM ARTIST REPRESENTATIVE DIFFERENTIAL MANUAL Add on 09/04/2023 5 :25 AM ARTIST REPRESENTATIVE CBC W AUTO DIFFERENTIAL STAT 09/04/20 5:25 AM ARTIST REPRESENTATIVE CYTOMEGALOVIRUS (CMV) QUANTITATIVE PLASMA Routine 09/04/2023 5:20 AM ARTIST REPRESENTATIVE HEPATITIS C AB SCREEN RFLX NAAT QUANT Routine 09/04/2023 5:20 AM ARTIST REPRESENTATIVE HIV-1 HIV-2 ANTIBODY + HIV P24 AG PANEL Routine 09/04/2023 5:20 AM ARTIST REPRESENTATIVE MARTHA-GHOTRA VIRUS ANTIBODY TO VCA IGM Routine 09/04/2023 5:20 AM ARTIST REPRESENTATIVE CYTOMEGALOVIRUS ANTIBODY IGG BLOOD Routine 09/04/2023 5:20 AM ARTIST REPRESENTATIVE HEPATITIS B PANEL Routine 09/04/2023 5:2 0 AM ARTIST REPRESENTATIVE HAPTOGLOBIN STAT 09/04/2023 5:20 AM ARTIST REPRESENTATIVE MARTHA-GHOTRA VIRUS QUANT BLOOD STL Routine 09/04/2023 5:19 AM ARTIST REPRESENTATIVE documented in this encounter Results * CT HEAD WO CONTRAST (11/19/2023 9:09 AM ARTIST REPRESENTATIVE) Anatomical Region Laterality Modality Head Computed Tomogra phy 11/19/2023 11:2 7 AM ARTIST REPRESENTATIVE Impressions 11/19/2023 11:32 AM ARTIST REPRESENTATIVE IMPRESSION: 1. Interval resolution of a small amount of subarachnoid hemorrhage in the right central sulcus. No new hemorrhage. 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 ([facility]) R90.89: Abnormal imaging of central nervous system [...] MD on 11/19/2023 11:32 AM Dori Muñiz PROC TECH-DOOR CLAMP OPERATOR CT ORDERABLES * TRANSFUSE RED BLOOD CELL LEUKOREDUCED UNIT(S) (10/09/2023 4:16 PM ARTIST REPRESENTATIVE) French Novoa MD NURSING - BLOOD PROD TRANSFUSION * TRANSFUSE RED BLOOD CELL LEUKOREDUCED UNIT(S), 1 Units (10/09/2023 4:16 PM ARTIST REPRESENTATIVE) French Novoa MD NURSING - BLOOD PROD TRANSFUSION * PREPARE (CROSSMATCH) RBC UNIT(S), 1 Units (10/09/2023 2:05 PM ARTIST REPRESENTATIVE) Pathologist [facility] Unit Description AS5 LR PRBC IRR [facility] Unit ABO O [facility] Unit Rh NEG [facility] Product Number R24 [facility] Unit Donor # [id number] [facility] Unit Status transfused [facility] Product Code [id number] [facility] Blood Type Barcode 9500 [facility] Expiration Date [id number] S BLOOD BANK LAB Blood Bank BLOOD SPECIMEN / Unknown 10/09/2023 9:17 AM ARTIST REPRESENTATIVE French Novoa MD LAB - BLOOD BANK ORD ERABLES [facility] [address] [place] [address], [place] [phone] * TYPE + SCREEN PANEL (10/09/2023 9:01 AM ARTIST REPRESENTATIVE) [facility] Antibody Screen NEG 10:01 AM [facility] ABO Rh O POS 10/09/2023 10:01 AM [facility] Blood Bank BLOOD SPECIMEN / Unknown Venipuncture / Unknown 10/09/2023 9:01 AM ARTIST REPRESENTATIVE 10/09/2023 9:17 AM [facility] French Novoa MD LAB - BLOOD BANK ORD ERABLES [facility] [address] [place] [address], [facility] [phone] * (ABNORMAL) BLOOD GASES ROMERO + COOX PANEL (10/09/2023 6:04 AM [facility]) Pathologist [facility] pH Venous 7.36 7.32 - 7.42 pH 10/09/2023 6:18 AM [facility] pO2 Venous 74(H) 35 - 40 mmHg 10/09/2023 6:18 AM [facility] pCO2 Venous 26(L) 40 - 50 mmHg 10/09/2023 6:18 AM [facility] HCO3 Venous 14.7(L) 20 - 30 mmol/L 10/09/2023 6:18 AM [facility] Base Excess Venous -9.7(L) -2.0 - 2.0 mmol/L 10/09/2023 6:18 AM [facility] Oxyhemoglobin Venous 95.3 % 09/16 6:18 AM [facility] Deoxyhemoglobin (HHB) Venous % 2.1 % 10/09/2023 6:18 AM [facility] Methemoglobin <0.8 0.0 - 2.0 % 10/09/2023 6:18 AM [facility] Carboxyhemoglobin 2.2(H) 0.0 - 2.0 % 2023 6:18 AM [facility] O2 Content Venous 10.0 Interpret within clinical context ml/dL 10/09/2023 6:18 AM [facility] Hemoglobin by COOX 7.4(L) 12.0 - 15.6 g/dL 10/09/2023 6:18 AM [facility] O2 Saturation Venous 98 >=70 % 09/16 6:18 AM [facility] FI O2 Mixed Venous 21.0 % 2023 6:18 AM [facility] Blood BLOOD SPECIMEN / Unknown Venipuncture / Unknown 10/09/2023 6:04 AM ARTIST REPRESENTATIVE 10/09/2023 6:15 AM [facility] Narrative [facility] - 10/09/2023 6:18 AM ARTIST REPRESENTATIVE Carboxyhemoglobin Normal Concentration: Non-smokers: 0-2%; Smokers: 0-9%; Toxic: >20% French Novoa MD LAB - BLOOD GASES OR DERABLES [address] [address], [place] [phone] * (ABNORMAL) DIFFERENTIAL MANUAL (10/08/2023 9:52 PM ARTIST REPRESENTATIVE) Neutrophil % 88(H) 41 - 74 % 10/08/2023 10:39 PM [facility] Lymphocyte % 12(L) 17 - 47 % 10/08/2023 10:39 PM [facility] Neutrophil Absolute 1.50(L) 1.60 - 7.50 x10E9/L 10/08/2023 10:39 PM [facility] Lymphocyte Absolute 0.20(L) 1.00 - 4.40 x10E9/L 10/08/2023 10:39 PM [facility] RBC Morphology NORMAL 10/08/2023 10:39 PM [facility] Blood BLOOD SPECIMEN / Unknown Venipuncture / Unknown 10/08/2023 9:52 PM ARTIST REPRESENTATIVE 10/08/2023 9:54 PM ARTIST REPRESENTATIVE Soraya Malik MD LAB - HEMATOLOG Y ORDERABLES [address] [address], [place] [phone] * FIBRINOGEN ACTIVITY (10/08/2023 9:52 PM ARTIST REPRESENTATIVE) Pathologist [facility] Fibrinogen Clauss 211 200 - 400 mg/dL 10/08/2023 10:15 PM [facility] Blood BLOOD SPECIMEN / Unknown Venipuncture / Unknown 10/08/2023 9:52 PM ARTIST REPRESENTATIVE 10/08/2023 9:54 PM ARTIST REPRESENTATIVE Umair Tan MD LAB - COAGULATION OR DERABLES Performing Organization Address [facility] Co de Phone Number [facility] [address] [place] [phone] [phone] * (ABNORMAL) CBC W AUTO DIFFERENTIAL (10/08/2023 9:52 PM ARTIST REPRESENTATIVE) [facility] WBC 1.7(L) 4.0 - 10.7 x10E9/L 10/08/2023 10:39 PM [facility] RBC Count 2.27(L) 3.90 - 5.20 x10E12/L 10/08/2023 10:39 PM [facility] Hemoglobin 7.1(L) 11.9 - 15.8 g/dL 10/08/2023 10:39 PM [facility] Hematocrit 19.8(L) 34.8 - 46.1 % 10/08/2023 10:39 PM [facility] MCV 87.2 80.0 - 98.0 fL 10/08/2023 10:39 PM [facility] MCH 31.3 26.7 - 33.6 pg 10/08/2023 10:39 PM [facility] MCHC 35.9 31.7 - 36.3 g/dL 10/08/2023 10:39 PM [facility] RDW-CV 12.7 11.3 - 14.8 % 10/08/2023 10:39 PM [facility] Platelet Count 72(L) 150 - 420 x10E9/L 10/08/2023 10:39 PM [facility] MPV 10.3 7.8 - 11.4 fL 10/08/2023 10:39 PM [facility] Preliminary Absolute Neutrophil 1.52(L) 1.60 - 7.50 x10E9/L 10/08/2023 10:39 PM ARTIST REPRESENTATIVE [facility] Blood BLOOD SPECIMEN / Unknown Venipuncture / Unknown 10/08/2023 9:52 PM ARTIST REPRESENTATIVE 10/08/2023 9:54 PM ARTIST REPRESENTATIVE Soraya Malik MD LAB - HEMATOLOG Y ORDERABLES [address] [address], [facility] [phone] * (ABNORMAL) PHOSPHORUS BLOOD (10/08/2023 9:52 PM ARTIST REPRESENTATIVE) Phosphorus 2.8(L) 2.9 - 5.1 mg/dL 10/08/2023 10:22 PM ARTIST REPRESENTATIVE [facility] Blood BLOOD SPECIMEN / Unknown Venipuncture / Unknown 10/08/2023 9:52 PM ARTIST REPRESENTATIVE 10/08/2023 9:54 PM ARTIST REPRESENTATIVE Soraya Malik MD LAB - CHEMISTRY ORDERABLES Performing Organization Address [facility]/ZIP Co de Phone Number [address] [address], [facility] [phone] * MAGNESIUM BLOOD (10/08/2023 9:52 PM ARTIST REPRESENTATIVE) Magnesium 2.3 1.6 - 2.6 mg/dL 10/08/2023 10:22 PM ARTIST REPRESENTATIVE [facility] Blood BLOOD SPECIMEN / Unknown Venipuncture / Unknown 10/08/2023 9:52 PM ARTIST REPRESENTATIVE 10/08/2023 9:54 PM ARTIST REPRESENTATIVE Soraya Malik MD LAB - CHEMISTRY ORDERABLES Performing Organization Address City/[facility]/ZIP Co de Phone Number [address] [address], [facility] [phone] * (ABNORMAL) COMPREHENSIVE METABOLIC PANEL (10/08/2023 9:52 PM ARTIST REPRESENTATIVE) BUN 17 7 - 26 mg/dL 10/08/2023 10:22 PM [facility] Creatinine 0.67 0.56 - 0.96 mg/dL 10/08/2023 10:22 PM [facility] Sodium 140 136 - 145 mmol/L 10/08/2023 10:22 PM [facility] Potassium 4.2 3.5 - 4.5 mmol/L 10/08/2023 10:22 PM [facility] Chloride 113(H) 98 - 107 mmol/L 10/08/2023 10:22 PM [facility] CO2 16(L) 22 - 29 mmol/L 10/08/2023 10:22 PM [facility] Glucose 168(H) 70 - 115 mg/dL 10/08/2023 10:22 PM [facility] Calcium 9.5 8.4 - 10.2 mg/dL 10/08/2023 10:22 PM [facility] Protein Total 6.8 6.0 - 8.3 g/dL 10/08/2023 10:22 PM [facility] Albumin 3.4 3.4 - 5.0 g/dL 10/08/2023 10:22 PM [facility] Bilirubin Total 0.6 0.2 - 1.2 mg/dL 10/08/2023 10:22 PM [facility] Alkaline Phosphatase 65 40 - 150 U/L 10/08/2023 10:22 PM [facility] ALT 89(H) 5 - 55 U/L 10/08/2023 10:22 PM [facility] AST 39(H) 5 - 34 U/L 10/08/2023 10:22 PM [facility] Anion Gap 11 6 - 16 10/08/2023 10:22 PM [facility] BUN/Creatinine Ratio 25(H) 7 - 23 10/08/2023 10:22 PM [facility] Osmolality Calculated 295 275 - 295 mOsm/kg 10/08/2023 10:22 PM [facility] Albumin/Globulin Ratio 1.0(L) 1.1 - 2.3 10/08/2023 10:22 PM [facility] eGFR by CKD-EPI >90 >=90 mL/min/1.7 3 m2 10/08/2023 10:22 PM [facility] Blood BLOOD SPECIMEN / Unknown Venipuncture / Unknown 10/08/2023 9:52 PM ARTIST REPRESENTATIVE 10/08/2023 9:54 PM ARTIST REPRESENTATIVE Cheryl Cronin MD LAB - CHEMISTRY JON NAIDU Performing Organization Address City/[facility]/ZIP Co de Phone Number [address] [address], [place] [phone] * GLUCOSE - POINT OF CARE (10/08/2023 2:33 AM ARTIST REPRESENTATIVE) Pathologist [facility] Glucose WB/POC 108 70 - 115 mg/dL 10/08/2023 6:24 AM [facility] Specimen Type Arterial 10/08/2023 6:24 AM [facility] Blood BLOOD SPECIMEN / Unknown 10/08/2023 2:33 AM ARTIST REPRESENTATIVE 10/08/2023 6:24 AM ARTIST REPRESENTATIVE French Novoa MD LAB - POINT OF CARE ORDERABLES Performing Organization Address City/[facility]/ZIP Co de Phone Number [address] [address], [place] [phone] * (ABNORMAL) DIFFERENTIAL MANUAL (10/07/2023 8:31 PM ARTIST REPRESENTATIVE) Pathologist [facility] Neutrophil % 87(H) 41 - 74 % 10/08/2023 1:40 AM [facility] Lymphocyte % 12(L) 17 - 47 % 10/08/2023 1:40 AM [facility] Monocyte % 1(L) 3 - 11 % 10/08/2023 1:40 AM [facility] Neutrophil Absolute 3.22 1.60 - 7.50 x10E9/L 10/08/2023 1:40 AM [facility] Lymphocyte Absolute 0.44(L) 1.00 - 4.40 x10E9/L 10/08/2023 1:40 AM [facility] Monocyte Absolute 0.04(L) 0.15 - 1.00 x10E9/L 10/08/2023 1:40 AM [facility] RBC Morphology REVIEWED 10/08/2023 1:40 AM [facility] Microcytosis MODERATE(A) (none) 10/08/2023 1:40 AM [facility] Blood BLOOD SPECIMEN / Unknown Venipuncture / Unknown 10/07/2023 8:31 PM ARTIST REPRESENTATIVE 10/07/2023 9:51 PM ARTIST REPRESENTATIVE Soraya Malik MD LAB - HEMATOLOG Y ORDERABLES Performing Organization Address City/[facility]/ZIP Co de Phone Number [address] [address], [facility] [phone] * (ABNORMAL) FIBRINOGEN ACTIVITY (10/07/2023 8:31 PM ARTIST REPRESENTATIVE) Fibrinogen Clauss 193(L) 200 - 400 mg/dL 10/07/2023 10:15 PM [facility] Blood BLOOD SPECIMEN / Unknown Venipuncture / Unknown 10/07/2023 8:31 PM ARTIST REPRESENTATIVE 10/07/2023 9:50 PM ARTIST REPRESENTATIVE Umair Tan MD LAB - COAGULATION OR DERABLES Performing Organization Address City/[facility]/ZIP Co de Phone Number [address] [address], [facility] [phone] * (ABNORMAL) CBC W AUTO DIFFERENTIAL (10/07/2023 8:31 PM ARTIST REPRESENTATIVE) WBC 3.7(L) 4.0 - 10.7 x10E9/L 10/08/2023 1:41 AM [facility] RBC Count 2.48(L) 3.90 - 5.20 x10E12/L 10/08/2023 1:41 AM [facility] Hemoglobin 7.8(L) 11.9 - 15.8 g/dL 10/08/2023 1:41 AM [facility] Hematocrit 22.0(L) 34.8 - 46.1 % 10/08/2023 1:41 AM [facility] MCV 88.7 80.0 - 98.0 fL 10/08/2023 1:41 AM [facility] MCH 31.5 26.7 - 33.6 pg 10/08/2023 1:41 AM [facility] MCHC 35.5 31.7 - 36.3 g/dL 10/08/2023 1:41 AM [facility] RDW-CV 13.4 11.3 - 14.8 % 10/08/2023 1:41 AM [facility] Platelet Count 104(L) 150 - 420 x10E9/L 10/08/2023 1:41 AM [facility] MPV 10.5 7.8 - 11.4 fL 10/08/2023 1:41 AM [facility] Preliminary Absolute Neutrophil 3.23 1.60 - 7.50 x10E9/L 10/08/2023 1:41 AM [facility] Blood BLOOD SPECIMEN / Unknown Venipuncture / Unknown 10/07/2023 8:31 PM ARTIST REPRESENTATIVE 10/07/2023 9:51 PM ARTIST REPRESENTATIVE Soraya Malik MD LAB - HEMATOLOG Y ORDERABLES [address] [address], [facility] [phone] * PHOSPHORUS BLOOD (10/07/2023 8:31 PM ARTIST REPRESENTATIVE) Phosphorus 3.2 2.9 - 5.1 mg/dL 10/07/2023 10:21 PM [facility] Blood BLOOD SPECIMEN / Unknown Venipuncture / Unknown 10/07/2023 8:31 PM ARTIST REPRESENTATIVE 10/07/2023 9:51 PM ARTIST REPRESENTATIVE Soraya Malik MD LAB - CHEMISTRY ORDERABLES [address] [address], [facility] [phone] * MAGNESIUM BLOOD (10/07/2023 8:31 PM ARTIST REPRESENTATIVE) Magnesium 2.3 1.6 - 2.6 mg/dL 10/07/2023 10:21 PM [facility] Blood BLOOD SPECIMEN / Unknown Venipuncture / Unknown 10/07/2023 8:31 PM ARTIST REPRESENTATIVE 10/07/2023 9:51 PM [facility] Soraya Malik MD LAB - CHEMISTRY ORDERABLES [facility] [address] [place] [address], [facility] [phone] * (ABNORMAL) COMPREHENSIVE METABOLIC PANEL (10/07/2023 8:31 PM [facility]) BUN 18 7 - 26 mg/dL 10/07/2023 10:21 PM [facility] Creatinine 0.79 0.56 - 0.96 mg/dL 10/07/2023 10:21 PM [facility] Sodium 142 136 - 145 mmol/L 10/07/2023 10:21 PM [facility] Potassium 3.4(L) 3.5 - 4.5 mmol/L 10/07/2023 10:21 PM [facility] Chloride 112(H) 98 - 107 mmol/L 10/07/2023 10:21 PM [facility] CO2 19(L) 22 - 29 mmol/L 10/07/2023 10:21 PM [facility] Glucose 139(H) 70 - 115 mg/dL 10/07/2023 10:21 PM [facility] Calcium 9.3 8.4 - 10.2 mg/dL 10/07/2023 10:21 PM [facility] Protein Total 7.1 6.0 - 8.3 g/dL 10/07/2023 10:21 PM [facility] Albumin 3.6 3.4 - 5.0 g/dL 10/07/2023 10:21 PM [facility] Bilirubin Total 0.8 0.2 - 1.2 mg/dL 10/07/2023 10:21 PM [facility] Alkaline Phosphatase 66 40 - 150 U/L 10/07/2023 10:21 PM [facility] ALT 101(H) 5 - 55 U/L 10/07/2023 10:21 PM [facility] AST 54(H) 5 - 34 U/L 10/07/2023 10:21 PM [facility] Anion Gap 11 6 - 16 10/07/2023 10:21 PM [facility] BUN/Creatinine Ratio 23 7 - 23 10/07/2023 10:21 PM [facility] Osmolality Calculated 298(H) 275 - 295 mOsm/kg 10/07/2023 10:21 PM [facility] Albumin/Globulin Ratio 1.0(L) 1.1 - 2.3 10/07/2023 10:21 PM [facility] eGFR by CKD-EPI >90 >=90 mL/min/1.7 3 m2 10/07/2023 10:21 PM [facility] Blood BLOOD SPECIMEN / Unknown Venipuncture / Unknown 10/07/2023 8:31 PM ARTIST REPRESENTATIVE 10/07/2023 9:51 PM ARTIST REPRESENTATIVE Cheryl Cronin MD LAB - CHEMISTRY JON NAIDU Performing Organization Address City/[facility]/ZIP Co de Phone Number [address] [address], [place] [phone] * (ABNORMAL) GLUCOSE - POINT OF CARE (10/07/2023 3:21 AM ARTIST REPRESENTATIVE) Glucose WB/POC 134(H) 70 - 115 mg/dL 10/07/2023 3:25 AM [facility] Specimen Type Cap Fingerstick 2023 3:25 AM [facility] Blood BLOOD SPECIMEN / Unknown 10/07/2023 3:21 AM ARTIST REPRESENTATIVE 10/07/2023 3:25 AM ARTIST REPRESENTATIVE Umair Tan MD LAB - POINT OF CARE ORDERABLES Performing Organization Address [facility]/ZIP Co de Phone Number [address] [address], [place] [phone] * (ABNORMAL) FIBRINOGEN ACTIVITY (10/06/2023 8:41 PM ARTIST REPRESENTATIVE) Fibrinogen Clauss 196(L) 200 - 400 mg/dL 10/06/2023 9:29 PM [facility] Blood BLOOD SPECIMEN / Unknown Venipuncture / Unknown 10/06/2023 8:41 PM ARTIST REPRESENTATIVE 10/06/2023 8:57 PM ARTIST REPRESENTATIVE Umair Tan MD LAB - COAGULATION OR DERABLES [facility] [address] [place] [address], [facility] [phone] * (ABNORMAL) CBC W AUTO DIFFERENTIAL (10/06/2023 8:41 PM ARTIST REPRESENTATIVE) WBC 2.5(L) 4.0 - 10.7 x10E9/L 10/06/2023 9:12 PM [facility] RBC Count 2.43(L) 3.90 - 5.20 x10E12/L 10/06/2023 9:12 PM [facility] Hemoglobin 7.5(L) 11.9 - 15.8 g/dL 10/06/2023 9:12 PM [facility] Hematocrit 21.5(L) 34.8 - 46.1 % 10/06/2023 9:12 PM [facility] MCV 88.5 80.0 - 98.0 fL 10/06/2023 9:12 PM [facility] MCH 30.9 26.7 - 33.6 pg 10/06/2023 9:12 PM [facility] MCHC 34.9 31.7 - 36.3 g/dL 10/06/2023 9:12 PM [facility] RDW-CV 13.6 11.3 - 14.8 % 10/06/2023 9:12 PM [facility] Platelet Count 125(L) 150 - 420 x10E9/L 10/06/2023 9:12 PM [facility] MPV 10.2 7.8 - 11.4 fL 10/06/2023 9:12 PM [facility] Preliminary Absolute Neutrophil 2.21 1.60 - 7.50 x10E9/L 10/06/2023 9:12 PM [facility] Neutrophil % 88.4(H) 41.0 - 74.0 % 10/06/2023 9:12 PM [facility] Lymphocyte % 8.4(L) 17.0 - 47.0 % 10/06/2023 9:12 PM [facility] Monocyte % 2.4(L) 3.0 - 11.0 % 10/06/2023 9:12 PM [facility] Eosinophil % 0.0 0.0 - 7.0 % 10/06/2023 9:12 PM [facility] Basophil % 0.0 0.0 - 1.6 % 10/06/2023 9:12 PM [facility] Immature Granulocytes % 0.8 0.0 - 1.0 % 10/06/2023 9:12 PM [facility] Neutrophil Absolute 2.21 1.60 - 7.50 x10E9/L 10/06/2023 9:12 PM [facility] Lymphocyte Absolute 0.21(L) 1.00 - 4.40 x10E9/L 10/06/2023 9:12 PM [facility] Monocyte Absolute 0.06(L) 0.15 - 1.00 x10E9/L 10/06/2023 9:12 PM [facility] Eosinophil Absolute 0.00 0.00 - 0.60 x10E9/L 10/06/2023 9:12 PM [facility] Basophil Absolute 0.00 0.00 - 0.13 x10E9/L 10/06/2023 9:12 PM [facility] Blood BLOOD SPECIMEN / Unknown Venipuncture / Unknown 10/06/2023 8:41 PM ARTIST REPRESENTATIVE 10/06/2023 8:58 PM [facility] Soraya Malik MD LAB - HEMATOLOG Y ORDERABLES [address] [address], [facility] [phone] * PHOSPHORUS BLOOD (10/06/2023 8:41 PM ARTIST REPRESENTATIVE) Phosphorus 3.2 2.9 - 5.1 mg/dL 10/06/2023 9:25 PM [facility] Blood BLOOD SPECIMEN / Unknown Venipuncture / Unknown 10/06/2023 8:41 PM ARTIST REPRESENTATIVE 10/06/2023 8:58 PM ARTIST REPRESENTATIVE Soraya Malik MD LAB - CHEMISTRY ORDERABLES [address] [address], [facility] [phone] * MAGNESIUM BLOOD (10/06/2023 8:41 PM ARTIST REPRESENTATIVE) Pathologist [facility] Magnesium 2.3 1.6 - 2.6 mg/dL 10/06/2023 9:25 PM [facility] Blood BLOOD SPECIMEN / Unknown Venipuncture / Unknown 10/06/2023 8:41 PM ARTIST REPRESENTATIVE 10/06/2023 8:58 PM ARTIST REPRESENTATIVE Soraya Malik MD LAB - CHEMISTRY ORDERABLES Performing Organization Address City/[facility]/ZIP Co de Phone Number [address] [address], [facility] [phone] * (ABNORMAL) COMPREHENSIVE METABOLIC PANEL (10/06/2023 8:41 PM ARTIST REPRESENTATIVE) Pathologist [facility] BUN 13 7 - 26 mg/dL 10/06/2023 9:25 PM [facility] Creatinine 0.64 0.56 - 0.96 mg/dL 10/06/2023 9:25 PM [facility] Sodium 137 136 - 145 mmol/L 10/06/2023 9:25 PM [facility] Potassium 4.1 3.5 - 4.5 mmol/L 10/06/2023 9:25 PM [facility] Chloride 114(H) 98 - 107 mmol/L 10/06/2023 9:25 PM [facility] CO2 18(L) 22 - 29 mmol/L 10/06/2023 9:25 PM [facility] Glucose 152(H) 70 - 115 mg/dL 10/06/2023 9:25 PM [facility] Calcium 9.1 8.4 - 10.2 mg/dL 10/06/2023 9:25 PM [facility] Protein Total 6.7 6.0 - 8.3 g/dL 10/06/2023 9:25 PM [facility] Albumin 3.2(L) 3.4 - 5.0 g/dL 10/06/2023 9:25 PM [facility] Bilirubin Total 0.4 0.2 - 1.2 mg/dL 10/06/2023 9:25 PM [facility] Alkaline Phosphatase 64 40 - 150 U/L 10/06/2023 9:25 PM [facility] ALT 82(H) 5 - 55 U/L 10/06/2023 9:25 PM [facility] AST 54(H) 5 - 34 U/L 10/06/2023 9:25 PM [facility] Anion Gap 5(L) 6 - 16 10/06/2023 9:25 PM [facility] BUN/Creatinine Ratio 20 7 - 23 10/06/2023 9:25 PM [facility] Osmolality Calculated 287 275 - 295 mOsm/kg 10/06/2023 9:25 PM [facility] Albumin/Globulin Ratio 0.9(L) 1.1 - 2.3 10/06/2023 9:25 PM [facility] eGFR by CKD-EPI >90 >=90 mL/min/1.7 3 m2 10/06/2023 9:25 PM [facility] Blood BLOOD SPECIMEN / Unknown Venipuncture / Unknown 10/06/2023 8:41 PM ARTIST REPRESENTATIVE 10/06/2023 8:58 PM [facility] Cheryl Cronin MD LAB - CHEMISTRY JON NAIDU [facility] [address] [place] [address], [facility] [phone] * (ABNORMAL) GLUCOSE - POINT OF CARE (10/06/2023 6:08 PM [facility]) Glucose WB/POC 123(H) 70 - 115 mg/dL 10/06/2023 6:09 PM [facility] Specimen Type Cap Fingerstick 2023 6:09 PM ARTIST REPRESENTATIVE [facility] Blood BLOOD SPECIMEN / Unknown 10/06/2023 6:08 PM ARTIST REPRESENTATIVE 10/06/2023 6:09 PM ARTIST REPRESENTATIVE Umair Tan MD LAB - POINT OF CARE ORDERABLES [facility] [address] [place] [address], [facility] [phone] * FL LUMBAR PUNCT FOR CHEMO INJ (10/06/2023 3:30 PM ARTIST REPRESENTATIVE) Anatomical Region Laterality Modality Spine Radiographic Ammy ging 10/06/2023 3:19 PM ARTIST REPRESENTATIVE Impressions 10/06/2023 4:30 PM ARTIST REPRESENTATIVE IMPRESSION: 1. Successful lumbar puncture under fluoroscopic guidance at level L3-4. 2. Successful injection of intrathecal chemotherapeutic agent. 3. Successful measurement of opening pressure: 31 cm of water in the prone position. Report dictated by Sivakumar Garrido DO (Video Arcade Manager). I, Sara Huitron MD have personally reviewed and interpreted this examination/study. 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 Under intermittent fluoroscopic guidance, [id number] 5 inch spinal needle was inserted into [...] position. Report dictated by Sivakumar Garrido DO (Video Arcade Manager). I, Sara Huitron MD have personally reviewed and interpreted this examination/study. > Interpreting Provider: Sara Huitron MD on 10/06/2023 4:30 PM Umair Tan MD FLUOROSCOPY ORDERABL ES * FLOW CYTOMETRY BODY FLUID (10/06/2023 3:24 PM ARTIST REPRESENTATIVE) Case Report Flow Cytometry ?Case: [id number] ? Authorizing Provider: ??Umair Tan MD ?Collected: ? 10/06/2023 03:24 PM ? Ordering Location: ? [facility] ? Received: ?10/07/2023 12:52 PM ? Pathologist: ? Meagan Lunsford MD ? Specimen: ?CSF Tube 3 ? 10/07/2023 2:57 PM [facility] Final Diagnosis Cerebrospinal fluid, flow cytometry: - Too few hematopoietic cells for flow cytometry 10/07/2023 2:57 PM [facility] Flow Cytometry Interpretation A cytospin prepared from the flow cytometry specimen has been reviewed for automotive quality manager purposes. 10/07/2023 2:57 PM [facility] Flow Cytometry Results Too few hematopoietic cells for flow cytometric analysis. 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 *The established laboratory minimum viability is 70%. [...] high complexity clinical testing. 10/07/2023 2:57 PM [facility] Embedded Images 2:57 PM [facility] Fluid CEREBROSPINAL FLUID SPECIMEN / Unknown Collection / Unknown 10/06/2023 3:24 PM ARTIST REPRESENTATIVE 10/07/2023 12:52 PM ARTIST REPRESENTATIVE Umair Tan MD LAB - PATHOLOGY/CYTO LOGY ORDERABLES [facility] [address] [facility] [place] [address], [facility] [phone] * HOLD SPECIMEN CSF (10/06/2023 3:24 PM ARTIST REPRESENTATIVE) Pathologist [facility] Specimen Hold Put in CSF Hold Specimen Rack in Processing Ref 10/06/2023 4:28 PM ARTIST REPRESENTATIVE [facility] Cerebral spinal fluid CEREBROSPINAL FLUID SPECIMEN / Unknown Collection / Unknown 10/06/2023 3:24 PM ARTIST REPRESENTATIVE 10/06/2023 4:27 PM ARTIST REPRESENTATIVE Umair Tan MD LAB - BODY FLUID ORD ERABLES Performing Organization Address [facility]/ZIP Co de Phone Number [facility] [address] [phone], [facility] [phone] * MENINGITIS/ENCEPHALITIS PANEL CSF (10/06/2023 3:24 PM ARTIST REPRESENTATIVE) Pathologist [facility] Escherichia coli K1 Not detected Not detected 10/06/2023 9:03 PM ARTIST REPRESENTATIVE [facility] Haemophilus influenzae Not detected Not detected 10/06/2023 9:03 PM ARTIST REPRESENTATIVE [facility] Listeria monocytogenes Not detected Not detected 10/06/2023 9:03 PM ARTIST REPRESENTATIVE [facility] Neisseria meningitis Not detected Not detected 10/06/2023 9:03 PM ARTIST REPRESENTATIVE [facility] Streptococcus agalactiae (Group B) Not detected Not detected 10/06/2023 9:03 PM ARTIST REPRESENTATIVE [facility] Streptococcus pneumoniae Not detected Not detected 10/06/2023 9:03 PM ARTIST REPRESENTATIVE [facility] Cytomegalovirus Not detected Not detected 10/06/2023 9:03 PM ARTIST REPRESENTATIVE [facility] Enterovirus Not detected Not detected 10/06/2023 9:03 PM ARTIST REPRESENTATIVE [facility] Herpes simplex Virus 1 Not detected Not detected 10/06/2023 9:03 PM ARTIST REPRESENTATIVE [facility] Herpes simplex Virus 2 Not detected Not detected 10/06/2023 9:03 PM ARTIST REPRESENTATIVE [facility] Human Herpesvirus 6 Not detected Not detected 10/06/2023 9:03 PM ARTIST REPRESENTATIVE [facility] Human Parechovirus Not detected Not detected 10/06/2023 9:03 PM ARTIST REPRESENTATIVE [facility] Varicella zoster Virus Not detected Not detected 10/06/2023 9:03 PM [facility] Cryptococcus neoformans/gattii Not detected Not detected 10/06/2023 9:03 PM [facility] Microbiology CEREBROSPINAL FLUID SPECIMEN / Unknown Collection / Unknown 10/06/2023 3:24 PM ARTIST REPRESENTATIVE 10/06/2023 4:48 PM ARTIST REPRESENTATIVE Narrative [facility] MICRO[facility]OLOG[facility] - 10/06/2023 9:03 PM ARTIST REPRESENTATIVE Meningitis/Encephalitis PCR CSF Panel performed by [employer] multiplex PCR. A negative [employer] ME Panel result does not exclude the possibility of ENVIRONMENTAL LABORATORY TECHNICIAN infection and should not be used as [...] Umair Tan MD LAB - MICROBIOLOGY O ALDAIR Performing Organization Address [facility] Co de Phone Number [facility] MICROBIOLOGY [address] [place] [address], [facility] [phone] * CULTURE CSF+GRAM STAIN (10/06/2023 3:24 PM ARTIST REPRESENTATIVE) Pathologist [facility] Culture No growth DAVID 10/13/2023 6:22 AM [facility] Gram Stain No polymorphonuclear cells 10/13/2023 6:22 AM [facility] Gram Stain No organisms seen 024 6:22 AM [facility] Cerebral spinal fluid CEREBROSPINAL FLUID SPECIMEN / Unknown Collection / Unknown 10/06/2023 3:24 PM ARTIST REPRESENTATIVE 10/06/2023 4:18 PM ARTIST REPRESENTATIVE Umair Tan MD LAB - MICROBIOLOGY O ALDAIR Performing Organization Address City/[facility] Co de Phone Number [facility] MICROBIOLOGY [address] [place] [address], [facility] [phone] * (ABNORMAL) CELL COUNT W DIFFERENTIAL CSF (10/06/2023 3:24 PM ARTIST REPRESENTATIVE) Tube Number TUBE 4 10/06/2023 4:35 PM ARTIST REPRESENTATIVE [facility] Xanthochromia ABSENT ABSENT 10/06/2023 4:35 PM [facility] CSF Appearance CLEAR 10/06/2023 4:35 PM [facility] CSF Color COLORLESS 10/06/2023 4:35 PM [facility] Total Nucleated Cells CSF 1 <=5 x10E6/L 10/06/2023 4:35 PM [facility] RBC Count CSF 6(H) <1 x10E6/L 10/06/2023 4:35 PM [facility] Cerebral spinal fluid CEREBROSPINAL FLUID SPECIMEN / Unknown Collection / Unknown 10/06/2023 3:24 PM ARTIST REPRESENTATIVE 10/06/2023 4:16 PM ARTIST REPRESENTATIVE Umair Tan MD LAB - BODY FLUID ORD ERABLES Performing Organization Address City/[facility]/ZIP Co de Phone Number [address] [address], [facility] [phone] * PROTEIN CSF (10/06/2023 3:24 PM ARTIST REPRESENTATIVE) Protein CSF 31 15 - 45 mg/dL 10/06/2023 4:52 PM ARTIST REPRESENTATIVE [facility] Cerebral spinal fluid CEREBROSPINAL FLUID SPECIMEN / Unknown Collection / Unknown 10/06/2023 3:24 PM ARTIST REPRESENTATIVE 10/06/2023 4:18 PM ARTIST REPRESENTATIVE Umair Tan MD LAB - BODY FLUID ORD ERABLES [address] [address], [facility] [phone] * GLUCOSE CSF (10/06/2023 3:24 PM ARTIST REPRESENTATIVE) Glucose CSF 58 40 - 70 mg/dL 10/06/2023 4:52 PM [facility] Cerebral spinal fluid CEREBROSPINAL FLUID SPECIMEN / Unknown Collection / Unknown 10/06/2023 3:24 PM ARTIST REPRESENTATIVE 10/06/2023 4:18 PM ARTIST REPRESENTATIVE Umair Tan MD LAB - BODY FLUID ORD ERABLES [address] [address], [facility] [phone] * CYTOLOGY NON-ELECTRONICS TESTER PANEL (STL) (10/06/2023 3:23 PM ARTIST REPRESENTATIVE) Case Report Medical Cytology Report ? Case: [id number] ? Authorizing Provider: ??Umair Tan MD ?Collected: ? 10/06/2023 03:23 PM ? Ordering Location: ? [facility] ? Received: ?10/07/2023 12:56 PM ? Pathologist: ? Ru Kramer MD ? Specimen: ?CSF Tube 4 ? 10/08/2023 3:43 PM ARTIST REPRESENTATIVE [facility] Specimen Adequacy Adequate cellularity for evaluation. 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 10/08/2023 3:43 PM [facility] Gross Description 1 diff-quik stained cytospin slide from 1cc clear fluid 10/08/2023 3:43 PM [facility] Microscopic Description Clean specimen. Microscopic examination substantiates the final diagnosis. 10/08/2023 3:43 PM [facility] Pathologist Location at [facility] 10/08/2023 3:43 PM [facility] Disclaimer The performance characteristics of all immunohistochemical and indirect immunofluorescence stains (if any) cited in this report were determined by the Histopathology Laboratory of [facility]. Some of these tests rely on the use of analyte-specific reagents and are subject to specific labeling requirements by the [place] Food and Drug Administration. Such tests were developed by the Histology Laboratory of [facility] and have not been cleared [...] the attending (teaching) pathologist. 10/08/2023 3:43 PM [facility] Embedded Images 10/08/2023 3:43 PM [facility] Pathology/Cytolo gy CEREBROSPINAL FLUID SPECIMEN / Unknown Collection / Unknown 10/06/2023 3:23 PM ARTIST REPRESENTATIVE 10/07/2023 12:56 PM ARTIST REPRESENTATIVE Umair Tan MD LAB - PATHOLOGY/CYTO LOGY ORDERABLES [facility] [address] [place] [address], [facility] [phone] * GLUCOSE - POINT OF CARE (10/06/2023 1:13 PM ARTIST REPRESENTATIVE) Glucose WB/POC 109 70 - 115 mg/dL 10/06/2023 1:46 PM ARTIST REPRESENTATIVE [facility] Specimen Type Cap Fingerstick 2023 1:46 PM ARTIST REPRESENTATIVE [facility] Blood BLOOD SPECIMEN / Unknown 10/06/2023 1:13 PM ARTIST REPRESENTATIVE 10/06/2023 1:46 PM ARTIST REPRESENTATIVE Umair Tan MD LAB - POINT OF CARE ORDERABLES Performing Organization Address City/[facility]/ZIP Co de Phone Number [address] [address], [place] [phone] * GLUCOSE - POINT OF CARE (10/06/2023 9:08 AM ARTIST REPRESENTATIVE) Glucose WB/POC 83 70 - 115 mg/dL 10/06/2023 1:46 PM ARTIST REPRESENTATIVE [facility] Specimen Type Cap Fingerstick 2023 1:46 PM ARTIST REPRESENTATIVE [facility] Blood BLOOD SPECIMEN / Unknown 10/06/2023 9:08 AM ARTIST REPRESENTATIVE 10/06/2023 1:46 PM ARTIST REPRESENTATIVE Umair Tan MD LAB - POINT OF CARE ORDERABLES Performing Organization Address [facility]/ZIP Co de Phone Number [address] [address], [place] [phone] * FIBRINOGEN ACTIVITY (10/05/2023 8:51 PM ARTIST REPRESENTATIVE) Fibrinogen Clauss 203 200 - 400 mg/dL 10/05/2023 9:22 PM ARTIST REPRESENTATIVE [facility] Blood BLOOD SPECIMEN / Unknown Venipuncture / Unknown 10/05/2023 8:51 PM ARTIST REPRESENTATIVE 10/05/2023 8:59 PM ARTIST REPRESENTATIVE Umair Tan MD LAB - COAGULATION OR DERABLES Performing Organization Address [facility]/ZIP Co de Phone Number [address] [phone], [place] [phone] * (ABNORMAL) CBC W AUTO DIFFERENTIAL (10/05/2023 8:51 PM ARTIST REPRESENTATIVE) WBC 3.8(L) 4.0 - 10.7 x10E9/L 10/05/2023 9:04 PM [facility] RBC Count 2.34(L) 3.90 - 5.20 x10E12/L 10/05/2023 9:04 PM [facility] Hemoglobin 7.2(L) 11.9 - 15.8 g/dL 10/05/2023 9:04 PM [facility] Hematocrit 20.9(L) 34.8 - 46.1 % 10/05/2023 9:04 PM [facility] MCV 89.3 80.0 - 98.0 fL 10/05/2023 9:04 PM [facility] MCH 30.8 26.7 - 33.6 pg 10/05/2023 9:04 PM [facility] MCHC 34.4 31.7 - 36.3 g/dL 10/05/2023 9:04 PM [facility] RDW-CV 14.3 11.3 - 14.8 % 10/05/2023 9:04 PM [facility] Platelet Count 163 150 - 420 x10E9/L 10/05/2023 9:04 PM [facility] MPV 10.3 7.8 - 11.4 fL 10/05/2023 9:04 PM [facility] Preliminary Absolute Neutrophil 2.68 1.60 - 7.50 x10E9/L 10/05/2023 9:04 PM [facility] Neutrophil % 71.1 41.0 - 74.0 % 10/05/2023 9:04 PM [facility] Lymphocyte % 12.7(L) 17.0 - 47.0 % 10/05/2023 9:04 PM [facility] Monocyte % 13.8(H) 3.0 - 11.0 % 10/05/2023 9:04 PM [facility] Eosinophil % 0.0 0.0 - 7.0 % 10/05/2023 9:04 PM [facility] Basophil % 0.0 0.0 - 1.6 % 10/05/2023 9:04 PM [facility] Immature Granulocytes % 2.4(H) 0.0 - 1.0 % 10/05/2023 9:04 PM [facility] Neutrophil Absolute 2.68 1.60 - 7.50 x10E9/L 10/05/2023 9:04 PM [facility] Lymphocyte Absolute 0.48(L) 1.00 - 4.40 x10E9/L 10/05/2023 9:04 PM [facility] Monocyte Absolute 0.52 0.15 - 1.00 x10E9/L 10/05/2023 9:04 PM [facility] Eosinophil Absolute 0.00 0.00 - 0.60 x10E9/L 10/05/2023 9:04 PM [facility] Basophil Absolute 0.00 0.00 - 0.13 x10E9/L 10/05/2023 9:04 PM [facility] Blood BLOOD SPECIMEN / Unknown Venipuncture / Unknown 10/05/2023 8:51 PM ARTIST REPRESENTATIVE 10/05/2023 9:00 PM ARTIST REPRESENTATIVE Soraya Malik MD LAB - HEMATOLOG Y ORDERABLES [address] [address], [facility] [phone] * PHOSPHORUS BLOOD (10/05/2023 8:51 PM ARTIST REPRESENTATIVE) Phosphorus 3.1 2.9 - 5.1 mg/dL 10/05/2023 9:25 PM [facility] Blood BLOOD SPECIMEN / Unknown Venipuncture / Unknown 10/05/2023 8:51 PM ARTIST REPRESENTATIVE 10/05/2023 9:00 PM ARTIST REPRESENTATIVE Soraya Malik MD LAB - CHEMISTRY ORDERABLES [address] [address], [facility] [phone] * MAGNESIUM BLOOD (10/05/2023 8:51 PM ARTIST REPRESENTATIVE) Magnesium 2.2 1.6 - 2.6 mg/dL 10/05/2023 9:25 PM [facility] Blood BLOOD SPECIMEN / Unknown Venipuncture / Unknown 10/05/2023 8:51 PM ARTIST REPRESENTATIVE 10/05/2023 9:00 PM [facility] Soraya Malik MD LAB - CHEMISTRY ORDERABLES [facility] [address] [place] [address], [facility] [phone] * (ABNORMAL) COMPREHENSIVE METABOLIC PANEL (10/05/2023 8:51 PM [facility]) BUN 13 7 - 26 mg/dL 10/05/2023 9:25 PM [facility] Creatinine 0.68 0.56 - 0.96 mg/dL 10/05/2023 9:25 PM [facility] Sodium 142 136 - 145 mmol/L 10/05/2023 9:25 PM [facility] Potassium 3.8 3.5 - 4.5 mmol/L 10/05/2023 9:25 PM [facility] Chloride 119(H) 98 - 107 mmol/L 10/05/2023 9:25 PM [facility] CO2 14(L) 22 - 29 mmol/L 10/05/2023 9:25 PM [facility] Glucose 139(H) 70 - 115 mg/dL 10/05/2023 9:25 PM [facility] Calcium 9.1 8.4 - 10.2 mg/dL 10/05/2023 9:25 PM [facility] Protein Total 6.6 6.0 - 8.3 g/dL 10/05/2023 9:25 PM [facility] Albumin 3.1(L) 3.4 - 5.0 g/dL 10/05/2023 9:25 PM [facility] Bilirubin Total 0.3 0.2 - 1.2 mg/dL 10/05/2023 9:25 PM [facility] Alkaline Phosphatase 63 40 - 150 U/L 10/05/2023 9:25 PM [facility] ALT 75(H) 5 - 55 U/L 10/05/2023 9:25 PM [facility] AST 57(H) 5 - 34 U/L 10/05/2023 9:25 PM [facility] Anion Gap 9 6 - 16 10/05/2023 9:25 PM [facility] BUN/Creatinine Ratio 19 7 - 23 10/05/2023 9:25 PM [facility] Osmolality Calculated 296(H) 275 - 295 mOsm/kg 10/05/2023 9:25 PM [facility] Albumin/Globulin Ratio 0.9(L) 1.1 - 2.3 10/05/2023 9:25 PM [facility] eGFR by CKD-EPI >90 >=90 mL/min/1.7 3 m2 10/05/2023 9:25 PM [facility] Blood BLOOD SPECIMEN / Unknown Venipuncture / Unknown 10/05/2023 8:51 PM ARTIST REPRESENTATIVE 10/05/2023 9:00 PM ARTIST REPRESENTATIVE Cheryl Cronin MD LAB - CHEMISTRY JON NAIDU Performing Organization Address City/[facility]/ZIP Co de Phone Number [address] [address], [place] [phone] * (ABNORMAL) GLUCOSE - POINT OF CARE (10/05/2023 2:09 AM ARTIST REPRESENTATIVE) Glucose WB/POC 136(H) 70 - 115 mg/dL 10/05/2023 2:12 AM [facility] Specimen Type Cap Fingerstick 2023 2:12 AM [facility] Blood BLOOD SPECIMEN / Unknown 10/05/2023 2:09 AM ARTIST REPRESENTATIVE 10/05/2023 2:12 AM ARTIST REPRESENTATIVE Umair Tan MD LAB - POINT OF CARE ORDERABLES Performing Organization Address City/[facility]/ZIP Co de Phone Number [address] [address], [place] [phone] * (ABNORMAL) DIFFERENTIAL MANUAL (10/04/2023 11:11 PM ARTIST REPRESENTATIVE) Neutrophil % 81(H) 41 - 74 % 10/05/2023 12:01 AM [facility] Lymphocyte % 12(L) 17 - 47 % 10/05/2023 12:01 AM [facility] Monocyte % 6 3 - 11 % 10/05/2023 12:01 AM [facility] Metamyelocyte % 1(H) 0% % 12:01 AM [facility] Neutrophil Absolute 5.18 1.60 - 7.50 x10E9/L 10/05/2023 12:01 AM [facility] Lymphocyte Absolute 0.77(L) 1.00 - 4.40 x10E9/L 10/05/2023 12:01 AM [facility] Monocyte Absolute 0.38 0.15 - 1.00 x10E9/L 10/05/2023 12:01 AM [facility] RBC Morphology REVIEWED 10/05/2023 12:01 AM [facility] Schistocytes FEW(A) (none) 10/05/2023 12:01 AM [facility] Blood BLOOD SPECIMEN / Unknown Venipuncture / Unknown 10/04/2023 11:11 PM ARTIST REPRESENTATIVE 10/04/2023 11:29 PM ARTIST REPRESENTATIVE Soraya aMlik MD LAB - HEMATOLOG Y ORDERABLES [address] [address], [facility] [phone] * FIBRINOGEN ACTIVITY (10/04/2023 11:11 PM ARTIST REPRESENTATIVE) Fibrinogen Clauss 302 200 - 400 mg/dL 10/04/2023 11:52 PM [facility] Blood BLOOD SPECIMEN / Unknown Venipuncture / Unknown 10/04/2023 11:11 PM ARTIST REPRESENTATIVE 10/04/2023 11:29 PM ARTIST REPRESENTATIVE Umair Tan MD LAB - COAGULATION OR DERABLES [address] [address], [place] [phone] * (ABNORMAL) CBC W AUTO DIFFERENTIAL (10/04/2023 11:11 PM ARTIST REPRESENTATIVE) WBC 6.4 4.0 - 10.7 x10E9/L 10/05/2023 12:02 AM [facility] RBC Count 2.56(L) 3.90 - 5.20 x10E12/L 10/05/2023 12:02 AM [facility] Hemoglobin 7.9(L) 11.9 - 15.8 g/dL 10/05/2023 12:02 AM [facility] Hematocrit 22.9(L) 34.8 - 46.1 % 10/05/2023 12:02 AM [facility] MCV 89.5 80.0 - 98.0 fL 10/05/2023 12:02 AM [facility] MCH 30.9 26.7 - 33.6 pg 10/05/2023 12:02 AM [facility] MCHC 34.5 31.7 - 36.3 g/dL 10/05/2023 12:02 AM [facility] RDW-CV 13.7 11.3 - 14.8 % 10/05/2023 12:02 AM [facility] Platelet Count 211 150 - 420 x10E9/L 10/05/2023 12:02 AM [facility] MPV 10.9 7.8 - 11.4 fL 10/05/2023 12:02 AM [facility] Preliminary Absolute Neutrophil 4.76 1.60 - 7.50 x10E9/L 10/05/2023 12:02 AM [facility] Comment:Preliminary ANC pend ing manual confirmation NRBC 1.4(H) <=0.0 /100 WBC 10/05/2023 12:02 AM [facility] Blood BLOOD SPECIMEN / Unknown Venipuncture / Unknown 10/04/2023 11:11 PM ARTIST REPRESENTATIVE 10/04/2023 11:29 PM ARTIST REPRESENTATIVE Soraya Malik MD LAB - HEMATOLOG Y ORDERABLES [facility] [address] [place] [address], [facility] [phone] * PHOSPHORUS BLOOD (10/04/2023 11:11 PM ARTIST REPRESENTATIVE) Pathologist [facility] Phosphorus 3.1 2.9 - 5.1 mg/dL 10/04/2023 11:57 PM [facility] Blood BLOOD SPECIMEN / Unknown Venipuncture / Unknown 10/04/2023 11:11 PM ARTIST REPRESENTATIVE 10/04/2023 11:29 PM ARTIST REPRESENTATIVE Soraya Malik MD LAB - CHEMISTRY ORDERABLES [address] [address], [facility] [phone] * MAGNESIUM BLOOD (10/04/2023 11:11 PM ARTIST REPRESENTATIVE) Pathologist [facility] Magnesium 2.0 1.6 - 2.6 mg/dL 10/04/2023 11:57 PM [facility] Blood BLOOD SPECIMEN / Unknown Venipuncture / Unknown 10/04/2023 11:11 PM ARTIST REPRESENTATIVE 10/04/2023 11:29 PM ARTIST REPRESENTATIVE Soraya Malik MD LAB - CHEMISTRY ORDERABLES [address] [address], [facility] [phone] * (ABNORMAL) COMPREHENSIVE METABOLIC PANEL (10/04/2023 11:11 PM ARTIST REPRESENTATIVE) Pathologist [facility] BUN 12 7 - 26 mg/dL 10/04/2023 11:57 PM [facility] Creatinine 0.70 0.56 - 0.96 mg/dL 10/04/2023 11:57 PM [facility] Sodium 141 136 - 145 mmol/L 10/04/2023 11:57 PM [facility] Potassium 4.1 3.5 - 4.5 mmol/L 10/04/2023 11:57 PM [facility] Chloride 119(H) 98 - 107 mmol/L 10/04/2023 11:57 PM [facility] CO2 14(L) 22 - 29 mmol/L 10/04/2023 11:57 PM [facility] Glucose 135(H) 70 - 115 mg/dL 10/04/2023 11:57 PM [facility] Calcium 9.2 8.4 - 10.2 mg/dL 10/04/2023 11:57 PM [facility] Protein Total 6.8 6.0 - 8.3 g/dL 10/04/2023 11:57 PM [facility] Albumin 3.1(L) 3.4 - 5.0 g/dL 10/04/2023 11:57 PM [facility] Bilirubin Total 0.3 0.2 - 1.2 mg/dL 10/04/2023 11:57 PM [facility] Alkaline Phosphatase 70 40 - 150 U/L 10/04/2023 11:57 PM [facility] ALT 50 5 - 55 U/L 10/04/2023 11:57 PM [facility] AST 33 5 - 34 U/L 10/04/2023 11:57 PM [facility] Anion Gap 8 6 - 16 10/04/2023 11:57 PM [facility] BUN/Creatinine Ratio 17 7 - 23 10/04/2023 11:57 PM [facility] Osmolality Calculated 294 275 - 295 mOsm/kg 10/04/2023 11:57 PM [facility] Albumin/Globulin Ratio 0.8(L) 1.1 - 2.3 10/04/2023 11:57 PM [facility] eGFR by CKD-EPI >90 >=90 mL/min/1.7 3 m2 10/04/2023 11:57 PM [facility] Blood BLOOD SPECIMEN / Unknown Venipuncture / Unknown 10/04/2023 11:11 PM ARTIST REPRESENTATIVE 10/04/2023 11:29 PM [facility] Cheryl Cronin MD LAB - CHEMISTRY JON NAIDU [facility] Organization Address City/State/ZIP Co de Phone Number [facility] [address] [place] [address], [facility] [phone] * (ABNORMAL) GLUCOSE - POINT OF CARE (10/04/2023 11:02 PM ARTIST REPRESENTATIVE) Glucose WB/POC 154(H) 70 - 115 mg/dL 10/05/2023 7:32 AM ARTIST REPRESENTATIVE [facility] Specimen Type Cap Fingerstick 2023 7:32 AM ARTIST REPRESENTATIVE [facility] Blood BLOOD SPECIMEN / Unknown 10/04/2023 11:02 PM ARTIST REPRESENTATIVE 10/05/2023 7:32 AM ARTIST REPRESENTATIVE Umair Tan MD LAB - POINT OF CARE ORDERABLES [address] [address], [place] [phone] * (ABNORMAL) GLUCOSE - POINT OF CARE (10/04/2023 4:23 PM ARTIST REPRESENTATIVE) Glucose WB/POC 147(H) 70 - 115 mg/dL 10/04/2023 5:48 PM ARTIST REPRESENTATIVE [facility] Specimen Type Cap Fingerstick 2023 5:48 PM ARTIST REPRESENTATIVE [facility] Blood BLOOD SPECIMEN / Unknown 10/04/2023 4:23 PM ARTIST REPRESENTATIVE 10/04/2023 5:48 PM ARTIST REPRESENTATIVE Umair Tan MD LAB - POINT OF CARE ORDERABLES Performing Organization Address City/[facility]/ZIP Co de Phone Number [address] [address], [place] [phone] * GLUCOSE - POINT OF CARE (10/04/2023 12:43 PM ARTIST REPRESENTATIVE) Glucose WB/POC 113 70 - 115 mg/dL 10/04/2023 5:48 PM ARTIST REPRESENTATIVE [facility] Specimen Type Cap Fingerstick 2023 5:48 PM ARTIST REPRESENTATIVE [facility] Blood BLOOD SPECIMEN / Unknown 10/04/2023 12:43 PM ARTIST REPRESENTATIVE 10/04/2023 5:48 PM ARTIST REPRESENTATIVE Umair Tan MD LAB - POINT OF CARE ORDERABLES [address] [address], [place] [phone] * GLUCOSE - POINT OF CARE (10/04/2023 8:47 AM ARTIST REPRESENTATIVE) Glucose WB/POC 96 70 - 115 mg/dL 10/04/2023 5:47 PM [facility] Specimen Type Cap Fingerstick 2023 5:47 PM [facility] Blood BLOOD SPECIMEN / Unknown 10/04/2023 8:47 AM ARTIST REPRESENTATIVE 10/04/2023 5:47 PM ARTIST REPRESENTATIVE Umair Tan MD LAB - POINT OF CARE ORDERABLES [facility] [address] [place] [address], [facility] [phone] * (ABNORMAL) DIFFERENTIAL MANUAL (10/03/2023 9:02 PM ARTIST REPRESENTATIVE) Pathologist [facility] Neutrophil % 52 41 - 74 % 10/03/2023 11:08 PM [facility] Lymphocyte % 29 17 - 47 % 10/03/2023 11:08 PM [facility] Monocyte % 15(H) 3 - 11 % 10/03/2023 11:08 PM [facility] Metamyelocyte % 2(H) 0% % 11:08 PM [facility] Myelocyte % 2(H) 0% % 10/03/2023 11:08 PM [facility] Neutrophil Absolute 2.39 1.60 - 7.50 x10E9/L 10/03/2023 11:08 PM [facility] Lymphocyte Absolute 1.33 1.00 - 4.40 x10E9/L 10/03/2023 11:08 PM [facility] Monocyte Absolute 0.69 0.15 - 1.00 x10E9/L 10/03/2023 11:08 PM [facility] RBC Morphology REVIEWED 10/03/2023 11:08 PM [facility] Schistocytes FEW(A) (none) 10/03/2023 11:08 PM [facility] Smudge Cells PRESENT(A) (none) 10/03/2023 11:08 PM [facility] Large Platelets PRESENT(A) (none) 11:08 PM [facility] Blood BLOOD SPECIMEN / Unknown Venipuncture / Unknown 10/03/2023 9:02 PM ARTIST REPRESENTATIVE 10/03/2023 10:07 PM ARTIST REPRESENTATIVE Soraya Malik MD LAB - HEMATOLOG Y ORDERABLES Performing Organization Address City/[facility]/ZIP Co de Phone Number [address] [address], [facility] [phone] * FIBRINOGEN ACTIVITY (10/03/2023 9:02 PM ARTIST REPRESENTATIVE) Pathologist [facility] Fibrinogen Clauss 303 200 - 400 mg/dL 10/03/2023 10:04 PM [facility] Blood BLOOD SPECIMEN / Unknown Venipuncture / Unknown 10/03/2023 9:02 PM ARTIST REPRESENTATIVE 10/03/2023 9:40 PM ARTIST REPRESENTATIVE Umair Tan MD LAB - COAGULATION OR DERABLES Performing Organization Address City/[facility]/ZIP Co de Phone Number [address] [address], [facility] [phone] * (ABNORMAL) CBC W AUTO DIFFERENTIAL (10/03/2023 9:02 PM ARTIST REPRESENTATIVE) Pathologist [facility] WBC 4.6 4.0 - 10.7 x10E9/L 10/03/2023 11:08 PM [facility] RBC Count 2.36(L) 3.90 - 5.20 x10E12/L 10/03/2023 11:08 PM [facility] Hemoglobin 7.3(L) 11.9 - 15.8 g/dL 10/03/2023 11:08 PM [facility] Hematocrit 21.1(L) 34.8 - 46.1 % 10/03/2023 11:08 PM [facility] MCV 89.4 80.0 - 98.0 fL 10/03/2023 11:08 PM [facility] MCH 30.9 26.7 - 33.6 pg 10/03/2023 11:08 PM [facility] MCHC 34.6 31.7 - 36.3 g/dL 10/03/2023 11:08 PM [facility] RDW-CV 14.1 11.3 - 14.8 % 10/03/2023 11:08 PM [facility] Platelet Count 143(L) 150 - 420 x10E9/L 10/03/2023 11:08 PM [facility] MPV 11.3 7.8 - 11.4 fL 10/03/2023 11:08 PM [facility] Preliminary Absolute Neutrophil 1.38(L) 1.60 - 7.50 x10E9/L 10/03/2023 11:08 PM [facility] Comment:Preliminary ANC pend ing manual confirmation NRBC 1.7(H) <=0.0 /100 WBC 10/03/2023 11:08 PM [facility] Blood BLOOD SPECIMEN / Unknown Venipuncture / Unknown 10/03/2023 9:02 PM ARTIST REPRESENTATIVE 10/03/2023 10:07 PM ARTIST REPRESENTATIVE Soraya Malik MD LAB - HEMATOLOG Y ORDERABLES [address] [address], [facility] [phone] * PHOSPHORUS BLOOD (10/03/2023 9:02 PM ARTIST REPRESENTATIVE) Phosphorus 3.2 2.9 - 5.1 mg/dL 10/03/2023 10:06 PM [facility] Blood BLOOD SPECIMEN / Unknown Venipuncture / Unknown 10/03/2023 9:02 PM ARTIST REPRESENTATIVE 10/03/2023 9:40 PM ARTIST REPRESENTATIVE Soraya Malik MD LAB - CHEMISTRY ORDERABLES [address] [address], [facility] [phone] * MAGNESIUM BLOOD (10/03/2023 9:02 PM ARTIST REPRESENTATIVE) Magnesium 2.0 1.6 - 2.6 mg/dL 10/03/2023 10:06 PM [facility] Blood BLOOD SPECIMEN / Unknown Venipuncture / Unknown 10/03/2023 9:02 PM ARTIST REPRESENTATIVE 10/03/2023 9:40 PM [facility] Soraya Malik MD LAB - CHEMISTRY ORDERABLES Performing Organization Address City/[facility]/ZIP Co de Phone Number [facility] [address] [place] [address], [facility] [phone] * (ABNORMAL) COMPREHENSIVE METABOLIC PANEL (10/03/2023 9:02 PM [facility]) BUN 9 7 - 26 mg/dL 10/03/2023 10:06 PM [facility] Creatinine 0.70 0.56 - 0.96 mg/dL 10/03/2023 10:06 PM [facility] Sodium 142 136 - 145 mmol/L 10/03/2023 10:06 PM [facility] Potassium 3.2(L) 3.5 - 4.5 mmol/L 10/03/2023 10:06 PM [facility] Chloride 115(H) 98 - 107 mmol/L 10/03/2023 10:06 PM [facility] CO2 17(L) 22 - 29 mmol/L 10/03/2023 10:06 PM [facility] Glucose 101 70 - 115 mg/dL 10/03/2023 10:06 PM [facility] Calcium 8.9 8.4 - 10.2 mg/dL 10/03/2023 10:06 PM [facility] Protein Total 6.1 6.0 - 8.3 g/dL 10/03/2023 10:06 PM [facility] Albumin 2.7(L) 3.4 - 5.0 g/dL 10/03/2023 10:06 PM [facility] Bilirubin Total 0.2 0.2 - 1.2 mg/dL 10/03/2023 10:06 PM [facility] Alkaline Phosphatase 62 40 - 150 U/L 10/03/2023 10:06 PM [facility] ALT 48 5 - 55 U/L 10/03/2023 10:06 PM [facility] AST 41(H) 5 - 34 U/L 10/03/2023 10:06 PM [facility] Anion Gap 10 6 - 16 10/03/2023 10:06 PM [facility] BUN/Creatinine Ratio 13 7 - 23 10/03/2023 10:06 PM [facility] Osmolality Calculated 293 275 - 295 mOsm/kg 10/03/2023 10:06 PM [facility] Albumin/Globulin Ratio 0.8(L) 1.1 - 2.3 10/03/2023 10:06 PM [facility] eGFR by CKD-EPI >90 >=90 mL/min/1.7 3 m2 10/03/2023 10:06 PM [facility] Blood BLOOD SPECIMEN / Unknown Venipuncture / Unknown 10/03/2023 9:02 PM ARTIST REPRESENTATIVE 10/03/2023 9:40 PM ARTIST REPRESENTATIVE Cheryl Cronin MD LAB - CHEMISTRY JON NAIDU [address] [address], [place] [phone] * GLUCOSE - POINT OF CARE (10/03/2023 8:36 PM ARTIST REPRESENTATIVE) Glucose WB/POC 93 70 - 115 mg/dL 10/03/2023 9:03 PM [facility] Specimen Type Arterial 10/03/2023 9:03 PM [facility] Blood BLOOD SPECIMEN / Unknown 10/03/2023 8:36 PM ARTIST REPRESENTATIVE 10/03/2023 9:03 PM ARTIST REPRESENTATIVE Umair Tan MD LAB - POINT OF CARE ORDERABLES [address] [address], [place] [phone] * GLUCOSE - POINT OF CARE (10/03/2023 5:13 PM ARTIST REPRESENTATIVE) Glucose WB/POC 99 70 - 115 mg/dL 10/03/2023 8:18 PM ARTIST REPRESENTATIVE [facility] Specimen Type Cap Fingerstick 2023 8:18 PM ARTIST REPRESENTATIVE [facility] Blood BLOOD SPECIMEN / Unknown 10/03/2023 5:13 PM ARTIST REPRESENTATIVE 10/03/2023 8:18 PM ARTIST REPRESENTATIVE Umair Tan MD LAB - POINT OF CARE ORDERABLES [facility] [address] [place] [address], [place] [phone] * GLUCOSE - POINT OF CARE (10/03/2023 11:09 AM ARTIST REPRESENTATIVE) Glucose WB/POC 83 70 - 115 mg/dL 10/03/2023 11:13 AM [facility] Specimen Type Cap Fingerstick 2023 11:13 AM [facility] Blood BLOOD SPECIMEN / Unknown 10/03/2023 11:09 AM ARTIST REPRESENTATIVE 10/03/2023 11:13 AM ARTIST REPRESENTATIVE Umair Tan MD LAB - POINT OF CARE ORDERABLES [address] [id number], [place] [phone] * GLUCOSE - POINT OF CARE (10/03/2023 7:47 AM ARTIST REPRESENTATIVE) Glucose WB/POC 89 70 - 115 mg/dL 10/03/2023 7:51 AM ARTIST REPRESENTATIVE [facility] Specimen Type Cap Fingerstick 2023 7:51 AM ARTIST REPRESENTATIVE [facility] Blood BLOOD SPECIMEN / Unknown 10/03/2023 7:47 AM ARTIST REPRESENTATIVE 10/03/2023 7:51 AM ARTIST REPRESENTATIVE Umair Tan MD LAB - POINT OF CARE ORDERABLES [facility] [address] [place] [phone], [place] [phone] * MRI ANGIO BRAIN VENOUS WWO CONT (10/03/2023 12:31 AM ARTIST REPRESENTATIVE) Anatomical Region Laterality Modality Head Magnetic Resonan ce 10/03/2023 9:51 AM ARTIST REPRESENTATIVE Impressions 10/03/2023 10:24 AM ARTIST REPRESENTATIVE IMPRESSION: 1.Moderate or moderate to severe stenosis [...] 10/03/2023 10:24 AM Narrative 10/03/2023 10:24 AM ARTIST REPRESENTATIVE PROCEDURE: ??MRI ANGIO BRAIN VENOUS WWO CONT, DATE/TIME OF EXAM: ??10/03/2023 12:36 AM, LOCATION ??[facility] INDICATION: R90.89: Abnormal imaging of central nervous [...] CONT, DATE/TIME OF EXAM:10/03/2023 12:36 AM, LOCATION [facility] INDICATION: R90.89: Abnormal imaging of central nervous [...] Davison MD on 10/03/2023 10:24 AM Umair Tan MD MR ORDERABLES * (ABNORMAL) DIFFERENTIAL MANUAL (10/02/2023 9:32 PM ARTIST REPRESENTATIVE) Neutrophil % 33(L) 41 - 74 % 10/02/2023 11:22 PM [facility] Band Neutrophil % 5 % 024 11:22 PM [facility] Lymphocyte % 36 17 - 47 % 10/02/2023 11:22 PM [facility] Monocyte % 20(H) 3 - 11 % 10/02/2023 11:22 PM [facility] Metamyelocyte % 3(H) 0% % 11:22 PM [facility] Myelocyte % 3(H) 0% % 10/02/2023 11:22 PM [facility] Neutrophil Absolute 1.56(L) 1.60 - 7.50 x10E9/L 10/02/2023 11:22 PM [facility] Lymphocyte Absolute 1.48 1.00 - 4.40 x10E9/L 10/02/2023 11:22 PM [facility] Monocyte Absolute 0.82 0.15 - 1.00 x10E9/L 10/02/2023 11:22 PM [facility] RBC Morphology REVIEWED 10/02/2023 11:22 PM [facility] Blood BLOOD SPECIMEN / Unknown Venipuncture / Unknown 10/02/2023 9:32 PM ARTIST REPRESENTATIVE 10/02/2023 9:37 PM ARTIST REPRESENTATIVE Soraya Malik MD LAB - HEMATOLOG Y ORDERABLES [facility] [address] [place] [address], [facility] [phone] * FIBRINOGEN ACTIVITY (10/02/2023 9:32 PM ARTIST REPRESENTATIVE) [facility] Fibrinogen Clauss 333 200 - 400 mg/dL 10/02/2023 9:58 PM [facility] Blood BLOOD SPECIMEN / Unknown Venipuncture / Unknown 10/02/2023 9:32 PM ARTIST REPRESENTATIVE 10/02/2023 9:37 PM ARTIST REPRESENTATIVE Umair Tan MD LAB - COAGULATION OR DERABLES Performing Organization Address City/[facility]/ZIP Co de Phone Number [facility] [address] [place] [address], [facility] [phone] * (ABNORMAL) CBC W AUTO DIFFERENTIAL (10/02/2023 9:32 PM ARTIST REPRESENTATIVE) [facility] WBC 4.1 4.0 - 10.7 x10E9/L 10/02/2023 11:23 PM [facility] RBC Count 2.33(L) 3.90 - 5.20 x10E12/L 10/02/2023 11:23 PM [facility] Hemoglobin 7.2(L) 11.9 - 15.8 g/dL 10/02/2023 11:23 PM [facility] Hematocrit 21.0(L) 34.8 - 46.1 % 10/02/2023 11:23 PM [facility] MCV 90.1 80.0 - 98.0 fL 10/02/2023 11:23 PM [facility] MCH 30.9 26.7 - 33.6 pg 10/02/2023 11:23 PM [facility] MCHC 34.3 31.7 - 36.3 g/dL 10/02/2023 11:23 PM [facility] RDW-CV 14.1 11.3 - 14.8 % 10/02/2023 11:23 PM [facility] Platelet Count 127(L) 150 - 420 x10E9/L 10/02/2023 11:23 PM [facility] MPV 10.6 7.8 - 11.4 fL 10/02/2023 11:23 PM [facility] Preliminary Absolute Neutrophil 1.24(L) 1.60 - 7.50 x10E9/L 10/02/2023 11:23 PM [facility] NRBC 0.7(H) <=0.0 /100 WBC 10/02/2023 11:23 PM ARTIST REPRESENTATIVE [facility] Blood BLOOD SPECIMEN / Unknown Venipuncture / Unknown 10/02/2023 9:32 PM ARTIST REPRESENTATIVE 10/02/2023 9:37 PM ARTIST REPRESENTATIVE Soraya Malik MD LAB - HEMATOLOG Y ORDERABLES Performing Organization Address City/[facility] [place]/ZIP Co de Phone Number [address] [address], [facility] [phone] * PHOSPHORUS BLOOD (10/02/2023 9:32 PM ARTIST REPRESENTATIVE) Phosphorus 3.5 2.9 - 5.1 mg/dL 10/02/2023 10:04 PM ARTIST REPRESENTATIVE [facility] Blood BLOOD SPECIMEN / Unknown Venipuncture / Unknown 10/02/2023 9:32 PM ARTIST REPRESENTATIVE 10/02/2023 9:37 PM ARTIST REPRESENTATIVE Soraya Malik MD LAB - CHEMISTRY ORDERABLES Performing Organization Address [facility] [place]/ZIP Co de Phone Number [address] [address], [facility] [phone] * MAGNESIUM BLOOD (10/02/2023 9:32 PM ARTIST REPRESENTATIVE) Magnesium 2.0 1.6 - 2.6 mg/dL 10/02/2023 10:04 PM ARTIST REPRESENTATIVE [facility] Blood BLOOD SPECIMEN / Unknown Venipuncture / Unknown 10/02/2023 9:32 PM ARTIST REPRESENTATIVE 10/02/2023 9:37 PM ARTIST REPRESENTATIVE Soraya Malik MD LAB - CHEMISTRY ORDERABLES [facility] [address] [place] [address], [facility] [phone] * (ABNORMAL) COMPREHENSIVE METABOLIC PANEL (10/02/2023 9:32 PM [facility]) BUN 6(L) 7 - 26 mg/dL 10/02/2023 10:04 PM [facility] Creatinine 0.63 0.56 - 0.96 mg/dL 10/02/2023 10:04 PM [facility] Sodium 139 136 - 145 mmol/L 10/02/2023 10:04 PM [facility] Potassium 3.2(L) 3.5 - 4.5 mmol/L 10/02/2023 10:04 PM [facility] Chloride 112(H) 98 - 107 mmol/L 10/02/2023 10:04 PM [facility] CO2 19(L) 22 - 29 mmol/L 10/02/2023 10:04 PM [facility] Glucose 87 70 - 115 mg/dL 10/02/2023 10:04 PM [facility] Calcium 8.8 8.4 - 10.2 mg/dL 10/02/2023 10:04 PM [facility] Protein Total 6.2 6.0 - 8.3 g/dL 10/02/2023 10:04 PM [facility] Albumin 2.8(L) 3.4 - 5.0 g/dL 10/02/2023 10:04 PM [facility] Bilirubin Total 0.3 0.2 - 1.2 mg/dL 10/02/2023 10:04 PM [facility] Alkaline Phosphatase 61 40 - 150 U/L 10/02/2023 10:04 PM [facility] ALT 43 5 - 55 U/L 10/02/2023 10:04 PM [facility] AST 45(H) 5 - 34 U/L 10/02/2023 10:04 PM [facility] Anion Gap 8 6 - 16 10/02/2023 10:04 PM [facility] BUN/Creatinine Ratio 10 7 - 23 10/02/2023 10:04 PM [facility] Osmolality Calculated 285 275 - 295 mOsm/kg 10/02/2023 10:04 PM [facility] Albumin/Globulin Ratio 0.8(L) 1.1 - 2.3 10/02/2023 10:04 PM [facility] eGFR by CKD-EPI >90 >=90 mL/min/1.7 3 m2 10/02/2023 10:04 PM [facility] Blood BLOOD SPECIMEN / Unknown Venipuncture / Unknown 10/02/2023 9:32 PM ARTIST REPRESENTATIVE 10/02/2023 9:37 PM ARTIST REPRESENTATIVE Cheryl Cronin MD LAB - CHEMISTRY JON NAIDU [address] [address], [facility] [phone] * GLUCOSE - POINT OF CARE (10/02/2023 8:59 PM ARTIST REPRESENTATIVE) Glucose WB/POC 80 70 - 115 mg/dL 10/03/2023 6:43 AM [facility] Specimen Type Arterial 10/03/2023 6:43 AM [facility] Blood BLOOD SPECIMEN / Unknown 10/02/2023 8:59 PM ARTIST REPRESENTATIVE 10/03/2023 6:43 AM ARTIST REPRESENTATIVE Umair Tan MD LAB - POINT OF CARE ORDERABLES Performing Organization Address City/[facility] [place]/ZIP Co de Phone Number [address] [address], [place] [phone] * GLUCOSE - POINT OF CARE (10/02/2023 5:44 PM ARTIST REPRESENTATIVE) Glucose WB/POC 75 70 - 115 mg/dL 10/02/2023 8:30 PM [facility] Specimen Type Cap Fingerstick 2023 8:30 PM [facility] Blood BLOOD SPECIMEN / Unknown 10/02/2023 5:44 PM ARTIST REPRESENTATIVE 10/02/2023 8:30 PM ARTIST REPRESENTATIVE Umair Tan MD LAB - POINT OF CARE ORDERABLES [address] [address], [facility] [phone] * GLUCOSE - POINT OF CARE (10/02/2023 1:49 PM ARTIST REPRESENTATIVE) Glucose WB/POC 83 70 - 115 mg/dL 10/02/2023 4:21 PM [facility] Specimen Type Cap Fingerstick 2023 4:21 PM [facility] Blood BLOOD SPECIMEN / Unknown 10/02/2023 1:49 PM ARTIST REPRESENTATIVE 10/02/2023 4:21 PM ARTIST REPRESENTATIVE Umair Tan MD LAB - POINT OF CARE ORDERABLES Performing Organization Address City/[facility] [place]/ZIP Co de Phone Number [address] [address], [facility] [phone] * GLUCOSE - POINT OF CARE (10/02/2023 8:21 AM ARTIST REPRESENTATIVE) Glucose WB/POC 102 70 - 115 mg/dL 10/02/2023 12:03 PM [facility] Specimen Type Cap Fingerstick 2023 12:03 PM [facility] Blood BLOOD SPECIMEN / Unknown 10/02/2023 8:21 AM ARTIST REPRESENTATIVE 10/02/2023 12:03 PM ARTIST REPRESENTATIVE Umair Tan MD LAB - POINT OF CARE ORDERABLES [address] [address], [facility] [phone] * (ABNORMAL) DIFFERENTIAL MANUAL (10/01/2023 9:19 PM ARTIST REPRESENTATIVE) Neutrophil % 47 41 - 74 % 10/02/2023 1:07 AM [facility] Lymphocyte % 27 17 - 47 % 10/02/2023 1:07 AM [facility] Monocyte % 19(H) 3 - 11 % 10/02/2023 1:07 AM [facility] Eosinophil % 1 0 - 7 % 10/02/2023 1:07 AM [facility] Metamyelocyte % 3(H) 0% % 1:07 AM [facility] Myelocyte % 3(H) 0% % 10/02/2023 1:07 AM [facility] Neutrophil Absolute 1.93 1.60 - 7.50 x10E9/L 10/02/2023 1:07 AM [facility] Lymphocyte Absolute 1.11 1.00 - 4.40 x10E9/L 10/02/2023 1:07 AM [facility] Monocyte Absolute 0.78 0.15 - 1.00 x10E9/L 10/02/2023 1:07 AM [facility] Eosinophil Absolute 0.04 0.00 - 0.60 x10E9/L 10/02/2023 1:07 AM [facility] RBC Morphology REVIEWED 10/02/2023 1:07 AM [facility] Smudge Cells PRESENT(A) (none) 10/02/2023 1:07 AM [facility] Large Platelets PRESENT(A) (none) 1:07 AM [facility] Blood BLOOD SPECIMEN / Unknown Venipuncture / Unknown 10/01/2023 9:19 PM ARTIST REPRESENTATIVE 10/01/2023 10:54 PM ARTIST REPRESENTATIVE Soraya Malik MD LAB - HEMATOLOG Y ORDERABLES [address] [address], [facility] [phone] * FIBRINOGEN ACTIVITY (10/01/2023 9:19 PM ARTIST REPRESENTATIVE) Fibrinogen Clauss 367 200 - 400 mg/dL 10/02/2023 1:15 AM [facility] Blood BLOOD SPECIMEN / Unknown Venipuncture / Unknown 10/01/2023 9:19 PM ARTIST REPRESENTATIVE 10/01/2023 10:54 PM ARTIST REPRESENTATIVE Umair Tan MD LAB - COAGULATION OR DERABLES [address] [address] [phone] * (ABNORMAL) CBC W AUTO DIFFERENTIAL (10/01/2023 9:19 PM ARTIST REPRESENTATIVE) WBC 4.1 4.0 - 10.7 x10E9/L 10/02/2023 1:07 AM [facility] RBC Count 2.36(L) 3.90 - 5.20 x10E12/L 10/02/2023 1:07 AM [facility] Hemoglobin 7.3(L) 11.9 - 15.8 g/dL 10/02/2023 1:07 AM [facility] Hematocrit 21.5(L) 34.8 - 46.1 % 10/02/2023 1:07 AM [facility] MCV 91.1 80.0 - 98.0 fL 10/02/2023 1:07 AM [facility] MCH 30.9 26.7 - 33.6 pg 10/02/2023 1:07 AM [facility] MCHC 34.0 31.7 - 36.3 g/dL 10/02/2023 1:07 AM [facility] RDW-CV 14.2 11.3 - 14.8 % 10/02/2023 1:07 AM [facility] Platelet Count 110(L) 150 - 420 x10E9/L 10/02/2023 1:07 AM [facility] MPV 11.4 7.8 - 11.4 fL 10/02/2023 1:07 AM [facility] Preliminary Absolute Neutrophil 1.06(L) 1.60 - 7.50 x10E9/L 10/02/2023 1:07 AM [facility] Comment:Preliminary ANC pend ing manual confirmation NRBC 1.9(H) <=0.0 /100 WBC 10/02/2023 1:07 AM [facility] Blood BLOOD SPECIMEN / Unknown Venipuncture / Unknown 10/01/2023 9:19 PM ARTIST REPRESENTATIVE 10/01/2023 10:54 PM ARTIST REPRESENTATIVE Soraya Malik MD LAB - HEMATOLOG Y ORDERABLES [address] [address], [facility] [phone] * (ABNORMAL) PHOSPHORUS BLOOD (10/01/2023 9:19 PM ARTIST REPRESENTATIVE) [facility] Phosphorus 2.6(L) 2.9 - 5.1 mg/dL 10/01/2023 11:19 PM ARTIST REPRESENTATIVE [facility] Blood BLOOD SPECIMEN / Unknown Venipuncture / Unknown 10/01/2023 9:19 PM ARTIST REPRESENTATIVE 10/01/2023 10:54 PM ARTIST REPRESENTATIVE Soraya Malik MD LAB - CHEMISTRY ORDERABLES Performing Organization Address [facility] [place]/ZIP Co de Phone Number [address] [address], [facility] [phone] * MAGNESIUM BLOOD (10/01/2023 9:19 PM ARTIST REPRESENTATIVE) [facility] Magnesium 2.0 1.6 - 2.6 mg/dL 10/01/2023 11:19 PM [facility] Blood BLOOD SPECIMEN / Unknown Venipuncture / Unknown 10/01/2023 9:19 PM ARTIST REPRESENTATIVE 10/01/2023 10:54 PM ARTIST REPRESENTATIVE Soraya Malik MD LAB - CHEMISTRY ORDERABLES Performing Organization Address City/[facility] [place]/ZIP Co de Phone Number [address] [address], [facility] [phone] * (ABNORMAL) COMPREHENSIVE METABOLIC PANEL (10/01/2023 9:19 PM ARTIST REPRESENTATIVE) Pathologist [facility] BUN <5(L) 7 - 26 mg/dL 10/01/2023 11:19 PM [facility] Creatinine 0.53(L) 0.56 - 0.96 mg/dL 10/01/2023 11:19 PM [facility] Sodium 142 136 - 145 mmol/L 10/01/2023 11:19 PM [facility] Potassium 3.5 3.5 - 4.5 mmol/L 10/01/2023 11:19 PM [facility] Chloride 113(H) 98 - 107 mmol/L 10/01/2023 11:19 PM [facility] CO2 21(L) 22 - 29 mmol/L 10/01/2023 11:19 PM [facility] Glucose 95 70 - 115 mg/dL 10/01/2023 11:19 PM [facility] Calcium 8.4 8.4 - 10.2 mg/dL 10/01/2023 11:19 PM [facility] Protein Total 5.9(L) 6.0 - 8.3 g/dL 10/01/2023 11:19 PM [facility] Albumin 2.6(L) 3.4 - 5.0 g/dL 10/01/2023 11:19 PM [facility] Bilirubin Total 0.3 0.2 - 1.2 mg/dL 10/01/2023 11:19 PM [facility] Alkaline Phosphatase 58 40 - 150 U/L 10/01/2023 11:19 PM [facility] ALT 29 5 - 55 U/L 10/01/2023 11:19 PM [facility] AST 38(H) 5 - 34 U/L 10/01/2023 11:19 PM [facility] Anion Gap 8 6 - 16 10/01/2023 11:19 PM [facility] BUN/Creatinine Ratio <9 7 - 23 10/01/2023 11:19 PM [facility] Osmolality Calculated <291 275 - 295 mOsm/kg 10/01/2023 11:19 PM [facility] Albumin/Globulin Ratio 0.8(L) 1.1 - 2.3 10/01/2023 11:19 PM [facility] eGFR by CKD-EPI >90 >=90 mL/min/1.7 3 m2 10/01/2023 11:19 PM [facility] Blood BLOOD SPECIMEN / Unknown Venipuncture / Unknown 10/01/2023 9:19 PM ARTIST REPRESENTATIVE 10/01/2023 10:54 PM [facility] Cheryl Cronin MD LAB - CHEMISTRY JON NAIDU [facility] Organization Address City/State/ZIP Co de Phone Number [facility] [address] [place] [address], [facility] [phone] * GLUCOSE - POINT OF CARE (10/01/2023 8:07 PM ARTIST REPRESENTATIVE) Glucose WB/POC 91 70 - 115 mg/dL 10/01/2023 9:09 PM ARTIST REPRESENTATIVE [facility] Specimen Type Cap Fingerstick 2023 9:09 PM ARTIST REPRESENTATIVE [facility] Blood BLOOD SPECIMEN / Unknown 10/01/2023 8:07 PM ARTIST REPRESENTATIVE 10/01/2023 9:09 PM ARTIST REPRESENTATIVE Umair Tan MD LAB - POINT OF CARE ORDERABLES [facility] [address] [place] [address], [facility] [phone] * XR ABD OBSTRUCTION SERIES 2VW (10/01/2023 7:39 PM ARTIST REPRESENTATIVE) Anatomical Region Laterality Modality Abdomen Radiographic Ammy ging 10/02/2023 8:25 AM ARTIST REPRESENTATIVE Impressions 10/02/2023 9:26 AM ARTIST REPRESENTATIVE IMPRESSION: Paucity of bowel gas. No pneumoperitoneum. Report dictated by Haleigh Mosquera MD (assistant professor of radiology). IFabien DO have personally reviewed and interpreted this examination/study. > Interpreting Provider: Fabien Yin DO on 10/02/2023 9:26 AM Narrative 10/02/2023 9:26 AM ARTIST REPRESENTATIVE PROCEDURE: ??XR ABD OBSTRUCTION SERIES 2VW DATE/TIME [...] pneumoperitoneum. Report dictated by Haleigh Mosquera MD (assistant professor of radiology). I, Fabien Yin DO have personally reviewed and interpreted this examination/study. > Interpreting Provider: Fabien Yin DO on 10/02/2023 9:26 AM Kevin Houston MD DIAGNOSTIC IMAGING O RDERABLES * GLUCOSE - POINT OF CARE (10/01/2023 5:54 PM ARTIST REPRESENTATIVE) Glucose WB/POC 89 70 - 115 mg/dL 10/01/2023 5:59 PM ARTIST REPRESENTATIVE [facility] Specimen Type Venous 10/01/2023 5:59 PM ARTIST REPRESENTATIVE [facility] Blood BLOOD SPECIMEN / Unknown 10/01/2023 5:54 PM ARTIST REPRESENTATIVE 10/01/2023 5:59 PM ARTIST REPRESENTATIVE Umair Tan MD LAB - POINT OF CARE ORDERABLES Performing Organization Address [facility]/State/ZIP Co de Phone Number [facility] [address] [place] [address], [facility] [phone] * FISH PML/BENY PANEL (10/01/2023 1:50 PM ARTIST REPRESENTATIVE) Pathologist [facility] EER PML/BENY Translocation by Fish See Note 10/02/2023 4:29 PM ARTIST REPRESENTATIVE [facility] ([facility]) Comment: Authorized individuals can access the eXpresso Enhanced Report using the following link: [email or web address] Performed By: [facility] [address] [place] [address] Game Technician: Ebenezer Shipman MD, PhD [facility] Number: [id number] PML/BENY Translocation by FISH See Note 10/02/2023 4:29 PM ARTIST REPRESENTATIVE [facility] ([facility]) Comment: Test Performed: PML-BENY Translocation by [...] developed and its performance characteristics determined by [facility] The 517 travel. It has not been cleared or approved by the US Food and Drug Administration. This test was performed in a CLIA certified laboratory and is intended for clinical purposes. Other BONE MARROW SPECIMEN / Unknown Collection / Unknown 10/01/2023 1:50 PM ARTIST REPRESENTATIVE 10/01/2023 2:11 PM ARTIST REPRESENTATIVE Umair Tan MD LAB - PATHOLOGY/CYTO LOGY ORDERABLES [facility] ([facility]) [address] * LAB MISC TEST (NOT BLOOD) (10/01/2023 1:50 PM ARTIST REPRESENTATIVE) Test Name FLT3 ITD/D835 10/14/2023 2:50 PM ARTIST REPRESENTATIVE [facility] NON INTERF Test Result 10/14/2023 2:50 PM ARTIST REPRESENTATIVE [facility] NON INTERF Comment Ref Lab 10/14/2023 2:50 PM ARTIST REPRESENTATIVE [facility] NON INTERF Other BONE MARROW SPECIMEN / Unknown Collection / Unknown 10/01/2023 1:50 PM ARTIST REPRESENTATIVE 10/01/2023 2:11 PM ARTIST REPRESENTATIVE Umair Tan MD LAB - BODY FLUID ORD ERABLES Performing Organization Address City/[facility] [place]/ZIP Co de Phone Number [facility] NON INTERF [address] [place] [address], [facility] [phone] * LAB MISC TEST (NOT BLOOD) (10/01/2023 1:50 PM ARTIST REPRESENTATIVE) Test Name NPM1 Molecular 10/14/2023 2:48 PM ARTIST REPRESENTATIVE [facility] NON INTERF Test Result 10/14/2023 2:48 PM ARTIST REPRESENTATIVE [facility] RE[facility] NON INTERF Comment Ref Lab 10/14/2023 2:48 PM ARTIST REPRESENTATIVE [facility] REF LAB NON INTERF Other BONE MARROW SPECIMEN / Unknown Collection / Unknown 10/01/2023 1:50 PM ARTIST REPRESENTATIVE 10/01/2023 2:11 PM ARTIST REPRESENTATIVE Umair Tan MD LAB - BODY FLUID ORD ERABLES Performing Organization Address City/[facility] [place]/ZIP Co de Phone Number [facility] RE[facility] NON INTERF [address] [place] [address], [facility] [phone] * LAB MISC TEST (NOT BLOOD) (10/01/2023 1:50 PM ARTIST REPRESENTATIVE) Test Name 10/08/2023 11:40 AM ARTIST REPRESENTATIVE [facility] NON INTERF Test Result See Scanned Report 10/08/2023 11:40 AM ARTIST REPRESENTATIVE [facility] NON INTERF Comment Ref Lab 10/08/2023 11:40 AM ARTIST REPRESENTATIVE [facility] REF LAB NON INTERF Other BONE MARROW SPECIMEN / Unknown Collection / Unknown 10/01/2023 1:50 PM ARTIST REPRESENTATIVE 10/01/2023 2:11 PM ARTIST REPRESENTATIVE Umair Tan MD LAB - BODY FLUID ORD ERABLES [facility] REF LAB NON INTERF [address] [place] [place] [phone], [facility] [phone] * FLOW CYTOMETRY BONE MARROW (10/01/2023 1:50 PM ARTIST REPRESENTATIVE) Case Report Flow Cytometry ?Case: [id number] ? Authorizing Provider: ??Umair Tan MD ?Collected: ? 10/01/2023 01:50 PM ? Ordering Location: ? [facility] 7N ACUTE ? Received: ?10/01/2023 02:11 PM ? Pathologist: ? Beverly Ferro MD ? Specimen: ?Bone Marrow ? 10/08/2023 12:19 PM ARTIST REPRESENTATIVE [facility] Addendum 1 Minimal residual disease flow cytometry performed at [facility] is reportedly negative for an abnormal myeloid progenitor population. 10/08/2023 12:19 PM [facility] Addendum electronically signed [...] represent benign/regenerativ e myeloblasts. 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 Please correlate with histologic review of the bone marrow ([id number]). 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 A-2 Flow CD10 A-3 Flow CD13 A-5 Flow CD20 A-11 Flow CD2 A-13 Flow CD14 A-16 Flow CD117 A-17 Flow CD11b A-18 Flow CD11c A-1 Flow CD5 A-4 Flow CD19 A-6 Flow CD33 A-7 Flow CD34 A-8 Flow CD45 A-12 Flow CD7 A-14 Flow CD56 A-15 Flow CD64 A-9 [place]+CD19+ A-10 Lambda+CD19+ A-19 Flow HLA-DR 10/08/2023 12:19 PM [facility] Pathologist Location at [facility] 10/08/2023 12:19 PM [facility] Disclaimer Test performed at [facility], [address] [place], [place], [address]. *The established laboratory minimum viability is 70%. [...] high complexity clinical testing. 10/08/2023 12:19 PM [facility] Embedded Images 12:19 PM [facility] Pathology/Cytolo gy BONE MARROW SPECIMEN / Unknown Collection / Unknown 10/01/2023 1:50 PM ARTIST REPRESENTATIVE 10/01/2023 2:11 PM ARTIST REPRESENTATIVE Umair Tan MD LAB - PATHOLOGY/CYTO LOGY ORDERABLES [facility] [address] [place] [address]. [place] [address], [facility] [phone] * CHROMOSOME ANALYSIS BONE MARROW PANEL (10/01/2023 1:50 PM ARTIST REPRESENTATIVE) Chromosome Analysis Bone Marrow See Note Normal 10/08/2023 9:09 PM [facility] ([facility]) Comment: Test Performed: Chromosome Analysis Specimen [...] performed on this sample and reported under [facility] accession [id number]. FISH results were NORMAL. NOTE: FISH AML Panel is PENDING on this sample and will be reported under [facility] accession [id number]. This result has been reviewed and approved by Kimberly Alaniz, Ph.D., [facility] A portion of this analysis was performed at the following location(s): [facility] CG-[place]3 [employer] [facility], [facility] [address], [place], [address], Game Technician: Kimberly Alaniz, PhD, [facility] INTERPRETIVE INFORMATION: Chromosome Analysis, Bone Marrow This test was developed and its performance characteristics determined by [employer]. It has not been cleared or approved by the US Food and Drug Administration. This test was performed in a CLIA certified laboratory and is intended for clinical purposes. EER Chromosome Analysis Bone Marrow See Note 10/08/2023 9:09 PM ARTIST REPRESENTATIVE [facility] ([facility]) Comment: Authorized individuals can access the eXpresso Enhanced Report using the following link: [email or web address] Performed By: [facility] [address] [place] [address] Game Technician: Ebenezer Shipman MD, PhD CLIA Number: [id number] Bone marrow BONE MARROW SPECIMEN / Unknown 10/01/2023 1:50 PM ARTIST REPRESENTATIVE 10/01/2023 2:11 PM ARTIST REPRESENTATIVE Umair Tan MD LAB - PATHOLOGY/CYTO LOGY ORDERABLES [facility] ([facility]) [address] [place] [address], [facility] * BONE MARROW BIOPSY (STL) (10/01/2023 1:50 PM ARTIST REPRESENTATIVE) Case Report Bone Marrow Patholog y Report ?Case: [id number] ? Authorizing Provider: ??Umair Tan MD ?Collected: ? 10/01/2023 01:50 PM ? Ordering Location: ? [facility] 7N ACUTE ? Received: ?10/01/2023 02:11 PM ? Pathologist: ? Beverly Ferro MD ? Specimens: ?? A) - Bone Marrow Clot ? B) - Bone Marrow Core ? C) - Bone Marrow Aspirate ? D) - Blood Peripheral ? 10/03/2023 7:25 PM [facility] Final Diagnosis Bone marrow, iliac crest, core biopsy and aspirate: -No morphologic evidence of residual acute myeloid leukemia in a normocellular marrow (70% cellular) 10/03/2023 7:25 PM [facility] Comment Please correlate wit h MRD testing on the flow cytometry specimen which is pending. 10/03/2023 7:25 PM [facility] Peripheral Smear Description Manual Differential Count (100 cells): 28% neutrophils, 1% myelocytes, 44% lymphocytes, 26% monocytes, 0% eosinophils, and 0% basophils. 1.2 nRBCs / 100 WBCs. Leukocyte number: normal. Granulocyte morphology: normal. Lymphocyte morphology: normal. Erythrocyte number: decreased. Erythrocyte morphology: normocytic. Anisopoikilocytosis: mild. Polychromasia: mild. Platelet number: decreased. Platelet morphology: normal. 10/03/2023 7:25 PM [facility] Bone Marrow Aspirate [...] lack of cellular spicules. 10/03/2023 7:25 PM [facility] Bone Marrow Core [...] morphology: peripheral blood only. 10/03/2023 7:25 PM [facility] Flow Cytometry Summary Flow cytometry is negative for evidence of residual acute myeloid leukemia ([id number]). 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 Received fresh, specimen A, clot is less than 1 cc of bright red fluid-like blood. The specimen is placed in a biopsy bag and entirely submitted in cassette A1. Received in formalin, specimen B, core a hemorrhagic core biopsy of red-toney bone 0.8 x 0.3 cm.. The specimen is entirely submitted in cassette B1 following a 1 hour decalicifcation in [employer]. [place] 10/03/2023 7:25 PM [facility] Microscopic Description Immunohistochemistry [...] cells is not noted. 10/03/2023 7:25 PM ARTIST REPRESENTATIVE [facility] Pathologist Location at [facility] 10/03/2023 7:25 PM ARTIST REPRESENTATIVE [facility] Disclaimer The performance characteristics of all immunohistochemical and indirect immunofluorescence stains (if any) cited in this report were determined by the Histopathology Laboratory of [facility]. Some of these tests were developed [...] the attending (teaching) pathologist. 10/03/2023 7:25 PM ARTIST REPRESENTATIVE [facility] Embedded Images 10/03/2023 7:25 PM ARTIST REPRESENTATIVE [facility] Pathology/Cytology PERIPHERAL BLOOD / Unknown Collection / Unknown 10/01/2023 1:50 PM ARTIST REPRESENTATIVE 10/01/2023 2:11 PM ARTIST REPRESENTATIVE Miscellaneous samples (specimen) BONE MARROW SPECIMEN / Unknown 10/01/2023 1:50 PM ARTIST REPRESENTATIVE 10/01/2023 2:11 PM ARTIST REPRESENTATIVE Miscellaneous samples (specimen) SPECIMEN FROM BONE MARROW OBTAINED BY ASPIRATION / Unknown 10/01/2023 1:50 PM ARTIST REPRESENTATIVE 10/01/2023 2:11 PM ARTIST REPRESENTATIVE Miscellaneous samples (specimen) PERIPHERAL BLOOD / Unknown 10/01/2023 1:50 PM ARTIST REPRESENTATIVE 10/01/2023 3:49 PM ARTIST REPRESENTATIVE Umair Tan MD LAB - PATHOLOGY/CYTO LOGY ORDERABLES [facility] [address] [place], [place] [id number] [place] [address] * MYELOID MALIGNANCIES MUTATION PNL (10/01/2023 1:50 PM ARTIST REPRESENTATIVE) Interpretation Myeloid Malignancy PNL See Note 10/10/2023 12:50 PM ARTIST REPRESENTATIVE [facility] ([facility]) Comment: Myeloid Malignancies Mutation Panel NGS Submitted diagnosis or diagnosis under consideration for variant interpretation: Acute myeloid leukemia, unspecified (AML unspec) Note: Prior NGS testing performed on this patient (most recent [facility] accession [id number]) was reviewed in conjunction with the current case. The previously reported variants are not detected in this case. TIER 1: Variants of Known Clinical Significance in Hematologic Malignancies None found TIER 2: Variants of Unknown Clinical Significance in Hematologic Malignancies None found This result has been reviewed and approved by Valentín Garcia M.D. Low coverage regions: Listed below are regions where the average sequencing depth (number of times a particular nucleotide is sequenced) in at least 20% of the paqxfj-sl-esrwsuus is less than our stringent cutoff of [...] NOTCH1; NPM1*; NRAS; NSD1; PHF6; PIGA; PPM1D; WEJK29A; PRPF8; PTPN11; RAD21; RUNX1; SAMD9; SAMD9L; SETBP1; [...] developed and its performance characteristics determined by [employer]. It has not been cleared or approved by the U.S. Food and Drug Administration. This test was performed in a CLIA-certified laboratory and is intended for clinical purposes. Myeloid Malignancy Dx Aml Unspec 10/10/2023 12:50 PM ARTIST REPRESENTATIVE [facility] ([facility]) Myeloid Malignancy Panel Specimen Bone Marrow 10/10/2023 12:50 PM ARTIST REPRESENTATIVE [facility]) EER Myeloid Malignancy See Note 10/10/2023 12:50 PM ARTIST REPRESENTATIVE [facility]) Comment: Authorized individuals can access the [employer] Enhanced Report using the following link: [email or web address] Performed By: [employer] [address] [place] [address] Game Technician: Ebenezer Shipman MD, PhD CLIA Number: [id number] Other BONE MARROW SPECIMEN / Unknown Collection / Unknown 10/01/2023 1:50 PM ARTIST REPRESENTATIVE 10/01/2023 2:11 PM ARTIST REPRESENTATIVE Umair Tan MD LAB - PATHOLOGY/CYTO LOGY ORDERABLES [facility]) [address] * FISH AML PANEL BLOOD OR BM RFLX PML/BENY (10/01/2023 1:50 PM ARTIST REPRESENTATIVE) FISH AML Panel See Note Normal 10/08/2023 5:48 PM [facility] ([facility]) Comment: Test Performed: Acute Myeloid Leukemia Panel by FISH (FISHAML) Specimen Type: Bone Marrow Indication for Testing: Acute Leukemia of Unspecified Cell Type RESULT Normal FISH Result inv(3) or t(3;3) RPN1::MECOM Fusion: ??not detected Deletion 5q: ??not detected Monosomy 7: ??not detected Deletion 7q: ??not detected t(8;21) RUNX1::UJUT1T8 Fusion: ??not detected 11p15 (NUP98) Rearrangement: ??not detected 11q23 (KMT2A) Rearrangement: ??not detected inv(16) or t(16;16) CBFB::MYH11 Fusion: ??not detected INTERPRETATION There was no evidence of RPN1::MECOM fusion due to 3q21/3q26.2 inversion or translocation, deletion 5q31, monosomy 7, deletion 7q31, RUNX1::YKNH2A3 fusion due to translocation (8;21)(q21.3;q22), 11p15 (NUP98) rearrangement, 11q23 KMT2A (MLL) rearrangement, or CBFB::MYH11 fusion due to either 16p13.1/16q22 inversion or translocation. This analysis was performed with the AML panel probes RPN1/MECOM, D5S23/EGR1, D7Z1/M2U622, RUNX1/SIJV2V2 ([employer]), NUP98 and CBFB-MYH11 ([email or web address]), and MLL (KMT2A) ([employer]). A total of 200 cells were scored for each probe. Cytogenomic Nomenclature (ISCN): nuc jung(RPN1,MECOM,D5S23,EGR1,D7Z1,G4H719,NADC8B9,NUP98,KMT2A,MYH11,CBF B,RUNX1)x2[200' This result has been reviewed and approved by Kimberly Alaniz, Ph.D., [facility] INTERPRETIVE INFORMATION: AML Panel by FISH This test was developed and its performance characteristics determined by [employer]. It has not been cleared or approved by the US Food and Drug Administration. This test was performed in a CLIA certified laboratory and is intended for clinical purposes. EER AML Panel by FISH See Note 10/08/2023 5:48 PM ARTIST REPRESENTATIVE [facility] ([facility]) Comment: Authorized individuals can access the [facility] Enhanced Report using the following link: [email or web address] Performed By: [facility] [address] [place] [address] Game Technician: Ebenezer Shipman MD, PhD CLIA Number: [id number] Other BONE MARROW SPECIMEN / Unknown Collection / Unknown 10/01/2023 1:50 PM ARTIST REPRESENTATIVE 10/01/2023 2:11 PM ARTIST REPRESENTATIVE Umair Tan MD LAB - PATHOLOGY/CYTO LOGY ORDERABLES [facility]) [address] [place], [place] [address] * GLUCOSE - POINT OF CARE (10/01/2023 11:43 AM ARTIST REPRESENTATIVE) Glucose WB/POC 83 70 - 115 mg/dL 10/01/2023 11:47 AM ARTIST REPRESENTATIVE [facility] Specimen Type Venous 10/01/2023 11:47 AM ARTIST REPRESENTATIVE [facility] Blood BLOOD SPECIMEN / Unknown 10/01/2023 11:43 AM ARTIST REPRESENTATIVE 10/01/2023 11:47 AM ARTIST REPRESENTATIVE Umair Tan MD LAB - POINT OF CARE ORDERABLES [facility] [address] [place] [address], [facility] [phone] * CT HEAD WO CONTRAST (10/01/2023 11:01 AM ARTIST REPRESENTATIVE) Anatomical Region Laterality Modality Head Computed Tomogra phy 10/01/2023 11:0 5 AM ARTIST REPRESENTATIVE Impressions 10/01/2023 11:20 AM ARTIST REPRESENTATIVE IMPRESSION: A tiny amount of subarachnoid hemorrhage in the right central sulcus is less conspicuous, suggesting evolution. Report dictated by Sivakumar Garrido DO (Video Arcade Manager). I, Romie Sanchez MD have personally reviewed and interpreted this examination/study. > Interpreting Provider: Romie Sanchez MD on 10/01/2023 11:20 AM Narrative 10/01/2023 11:20 AM ARTIST REPRESENTATIVE PROCEDURE: ??CT HEAD WO CONTRAST, DATE/TIME OF EXAM: ??10/01/2023 11:03 AM, LOCATION ??[facility] INDICATION: R90.89: Abnormal imaging of central nervous system EXAMINATION: Computed tomography (CT) of the head without contrast ADDITIONAL CLINICAL INFORMATION: Ordering Provider Reason For Exam: ??r/o SAH TECHNIQUE: CT of the head was performed without contrast according to standard protocol. CT dose reduction technique was used, including Automated Exposure Control. COMPARISON: CT head without contrast dated 09/30/[address] angio brain and neck dated 10/01/2023. FINDINGS: There is redemonstration of a small amount of subarachnoid hemorrhage in the right central sulcus, less conspicuous. The ventricles are of normal size, shape, and morphology. The basilar cisterns are patent. No mass effect or midline shift is seen. The mejia-white matter differentiation is normal. No acute calvarial fracture is identified. The orbits appear normal. There is mild paranasal sinus disease. The mastoid air cells are clear. No soft tissue abnormality is identified. Procedure Note Romie Sanchez MD - 10/01/2023 PROCEDURE: CT HEAD WO CONTRAST, DATE/TIME OF EXAM: 10/01/2023 11:03 AM, LOCATION [facility] INDICATION: R90.89: Abnormal imaging of central nervous system EXAMINATION: Computed tomography (CT) of the head without contrast ADDITIONAL CLINICAL INFORMATION: Ordering Provider Reason For Exam: r/o SAH TECHNIQUE: CT of the head was performed without contrast according to standard protocol. CT dose reduction technique was used, including Automated Exposure Control. COMPARISON: CT head without contrast dated 09/30/[address] angio brainand neck dated 10/01/2023. FINDINGS: There is redemonstration of a small amount of subarachnoid hemorrhage in the right central sulcus, less conspicuous. The ventricles are of normal size, shape, and morphology. The basilar cisterns are patent. No mass effect or midline shift is seen. The mejia-white matter differentiationis normal. No acute calvarial fracture is identified. The orbits appear normal.There is mild paranasal sinus disease. The mastoid air cells are clear. Nosoft tissue abnormality is identified. IMPRESSION: A tiny amount of subarachnoid hemorrhage in the right central sulcus is less conspicuous, suggesting evolution. Report dictated by Sivakumar Garrido DO (Video Arcade Manager). Romie Bartholomew MD have personally reviewed and interpreted this examination/study. > Interpreting Provider: Romie Sanchez MD on 10/01/2023 11:20 AM Umair Tan MD CT ORDERABLES * FL LUMBAR PUNCT FOR CHEMO INJ (10/01/2023 10:51 AM ARTIST REPRESENTATIVE) Anatomical Region Laterality Modality Spine Radiographic Ammy ging 10/01/2023 10:5 4 AM ARTIST REPRESENTATIVE Impressions 10/01/2023 4:02 PM ARTIST REPRESENTATIVE IMPRESSION: 1. Successful lumbar puncture under fluoroscopic guidance at level L4-5. 2. Successful injection of intrathecal chemotherapeutic agent. Report dictated by Sivakumar Garrido DO (Video Arcade Manager). Attending Physician: ??Dr. Augustine Davison Cvt Rn: Dr. Sivakumar Garrido DO (Video Arcade Manager). The procedure was performed by the: The bacteriology research assistant, and the attending radiologist was present for all critical and aguirre portions of the procedure, and was immediately available to furnish services during the entire procedure. ?? The attending radiologist performed the following procedural activities: Dr. Augustine Bartholomew was there and supervised aguirre portions of the procedure, not scrubbed. Augustine Bartholomew MD have personally reviewed and interpreted this examination/study. > Interpreting Provider: Augustine Davison MD on 10/01/2023 4:02 PM Narrative 10/01/2023 4:02 PM ARTIST REPRESENTATIVE PROCEDURE: ??FL LUMBAR PUNCT FOR CHEMO INJ, DATE/TIME OF EXAM: ??10/01/2023 11:00 AM, LOCATION ??[facility] INDICATION: R90.89: Abnormal imaging of central nervous system Ordering Provider Reason For Exam: ??concern for leukemic infiltrates in right orbit. Will need Cytarabine with LP EXAMINATION: ?? 1. Diagnostic lumbar puncture (LP) under fluoroscopic guidance 2. 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 TECHNIQUE: ??The risks and benefits of the [...] and wished to proceed. Attending physician: Dr. Davison was present for aguirre portions of the procedure. The L4-5 level was localized with fluoroscopy. The skin overlying this level was then sterilely prepped, draped, and infiltrated with 4 mL of 1% lidocaine for local anesthesia. Under intermittent fluoroscopic guidance, a 20-gauge 5 inch spinal needle was inserted into the thecal sac at this level. Clear CSF was identified. A total of 23 ml of CSF was removed and placed into 4 specimen tubes. The date, patient name and dose of intrathecal chemotherapy agent was confirmed prior to injection. The patient tolerated the procedure well. The patient was then transferred to the nursing area for further observation and one hour of bedrest. OPENING PRESSURE: Not performed. CHEMOTHERAPEUTIC AGENT: 100 mg of cytarabine. FLUOROSCOPY TIME:11.4 seconds Procedure Note Augustine Davison MD - 10/01/2023 PROCEDURE: FL LUMBAR PUNCT FOR CHEMO INJ, DATE/TIME OF EXAM: 10/01/2023 11:00 AM, LOCATION [facility] INDICATION: R90.89: Abnormal imaging of central nervous system Ordering Provider Reason For Exam: concern for leukemic infiltrates in right orbit. Will need Cytarabine with LP EXAMINATION: 1. Diagnostic lumbar puncture (LP) under fluoroscopic guidance 2. 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 TECHNIQUE: The risks and benefits of the [...] and wished to proceed. Attending physician: Dr. Davison was present for aguirre portions of the procedure. The L4-5 level was localized with fluoroscopy. The skin overlying this level was then sterilely prepped, draped, and infiltrated with 4 mL of1% lidocaine for local anesthesia. Under intermittent fluoroscopic guidance,a 20-gauge 5 inch spinal needle was inserted into the thecal sac at this level. Clear CSF was identified. A total of 23 ml of CSF was removed and placed into 4 specimen tubes. The date, patient name and dose of intrathecal chemotherapy agent was confirmed prior to injection. The patient tolerated the procedure well. The patient was thentransferred to the nursing area for further observation and one hour of bedrest. OPENING PRESSURE: Not performed. CHEMOTHERAPEUTIC AGENT: 100 mg of cytarabine. FLUOROSCOPY TIME:11.4 seconds IMPRESSION: 1. Successful lumbar puncture under fluoroscopic guidance at level L4-5. 2. Successful injection of intrathecal chemotherapeutic agent. Report dictated by Sivakumar Garrido DO (Video Arcade Manager). Attending Physician: Dr. Augustine Davison Cvt Rn: Dr. Sivakumar Garrido DO (Video Arcade Manager). The procedure was performed by the: The bacteriology research assistant, and the attending radiologist was present for allcritical and aguirre portions of the procedure, and was immediately available [facility] services during the entire procedure. The attending radiologist performed the following procedural activities: Dr. Augustine Bartholomew was there and supervised aguirre portions of the procedure, not scrubbed. Augustine Bartholomew MD have personally reviewed and interpretedthis examination/study. > Interpreting Provider: Augustine Davison MD on 10/01/2023 4:02 PM Umair Tan MD FLUOROSCOPY ORDERABL ES * FLOW CYTOMETRY BODY FLUID (10/01/2023 10:03 AM ARTIST REPRESENTATIVE) Case Report Flow Cytometry ?Case: [id number] ? Authorizing Provider: ??Umair Tan MD ?Collected: ? 10/01/2023 10:03 AM ? Ordering Location: ? [facility] ? Received: ?10/01/2023 11:11 AM ? Pathologist: ? Beverly Ferro MD ? Specimen: ?CSF Tube 4 ? 10/01/2023 5:14 PM [facility] Final Diagnosis Cerebrospinal fluid, flow cytometric immunophenotyping : - Inadequate cellularity for analysis 10/01/2023 5:14 PM [facility] Flow Cytometry Interpretation A cytospin prepared from the flow cytometry specimen has been reviewed for automotive quality manager purposes. The specimen is essentially acellular. 10/01/2023 5:14 PM [facility] Flow Cytometry Results Too few hematopoietic cells for flow cytometric analysis. 10/01/2023 5:14 PM [facility] Client Specimen ID # [id number] 10/01/2023 5:14 PM [facility] Reason for test Abnormal imaging of central nervous system 10/01/2023 5:14 PM [facility] Pathologist Location at [facility] 10/01/2023 5:14 PM [facility] Disclaimer Test performed at [facility], [address] [place] [address], [address]. *The established laboratory minimum viability is 70%. [...] qualified to perform high complexity clinical testing. 10/01/2023 5:14 PM [facility] Embedded Images 5:14 PM [facility] Fluid CEREBROSPINAL FLUID SPECIMEN / Unknown Collection / Unknown 10/01/2023 10:03 AM ARTIST REPRESENTATIVE 10/01/2023 11:11 AM ARTIST REPRESENTATIVE Umair Tan MD LAB - PATHOLOGY/CYTO LOGY ORDERABLES [facility] [address] [place] [address]. [place] [address], [facility] [phone] * CYTOLOGY NON-ELECTRONICS TESTER PANEL (STL) (10/01/2023 10:02 AM ARTIST REPRESENTATIVE) Case Report Medical Cytology Report ? Case: [id number] ? Authorizing Provider: ??Umair Tan MD ?Collected: ? 10/01/2023 10:02 AM ? Ordering Location: ? [facility] ? Received: ?10/01/2023 11:10 AM ? Pathologist: ? Ru Kramer MD ? Specimen: ?CSF Tube 3 ? 10/03/2023 12:18 PM [facility] Specimen Adequacy Adequate cellularity for evaluation. 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 A recent MR brain showed lack of FLAIR suppression along cerebral sulci predominantly involving the right central sulcus without associated susceptibility. A f/u CT showed a tiny subarachnoid hemorrhage in the right central sulcus. She underwent fluoroscopic guided lumbar puncture and intrathecal chemotherapy administration. 10/03/2023 12:18 PM [facility] Gross Description 1 cytospin Diff Quik stained slide from 5 cc clear , colorless, fresh fluid 10/03/2023 12:18 PM [facility] Microscopic Description Microscopic examination substantiates the final diagnosis. 10/03/2023 12:18 PM [facility] Pathologist Location at [facility] 10/03/2023 12:18 PM [facility] Disclaimer The performance characteristics of all immunohistochemical and indirect immunofluorescence stains (if any) cited in this report were determined by the Histopathology Laboratory of [facility]. Some of these tests rely on the use of analyte-specific reagents and are subject to specific labeling requirements by the US Food and Drug Administration. Such tests were developed by the Histology Laboratory of [facility] and have not been cleared [...] interpreted by the attending (teaching) pathologist. 10/03/2023 12:18 PM ARTIST REPRESENTATIVE [facility] Embedded Images 10/03/2023 12:18 PM ARTIST REPRESENTATIVE [facility] Pathology/Cytolo gy CEREBROSPINAL FLUID SPECIMEN / Unknown Collection / Unknown 10/01/2023 10:02 AM ARTIST REPRESENTATIVE 10/01/2023 11:10 AM ARTIST REPRESENTATIVE Umair Tan MD LAB - PATHOLOGY/CYTO LOGY ORDERABLES [facility] [address] [phone] * GLUCOSE - POINT OF CARE (10/01/2023 7:36 AM ARTIST REPRESENTATIVE) Glucose WB/POC 96 70 - 115 mg/dL 10/01/2023 7:40 AM [facility] Specimen Type Venous 10/01/2023 7:40 AM [facility] Blood BLOOD SPECIMEN / Unknown 10/01/2023 7:36 AM ARTIST REPRESENTATIVE 10/01/2023 7:40 AM ARTIST REPRESENTATIVE Umair Tan MD LAB - POINT OF CARE ORDERABLES [facility] [address] [place] [address], [facility] [phone] * CT ANGIO BRAIN AND NECK (10/01/2023 12:28 AM ARTIST REPRESENTATIVE) Anatomical Region Laterality Modality Head Computed Tomogra phy 10/01/2023 12:2 9 AM ARTIST REPRESENTATIVE Impressions 10/01/2023 8:30 AM ARTIST REPRESENTATIVE IMPRESSION: 1.Previously described trace volume of subarachnoid [...] verification. Report dictated by Steve Street M.D. (assistant professor of radiology) 10/01/2023 12:40 AM IAugustine MD have personally reviewed and interpreted this examination/study. > Interpreting Provider: Augustine Davison MD on 10/01/2023 8:30 AM Narrative 10/01/2023 8:30 AM ARTIST REPRESENTATIVE PROCEDURE: ??CT ANGIO BRAIN AND NECK, DATE/TIME OF EXAM: ??10/01/2023 12:28 AM, LOCATION ??[facility] INDICATION: R90.89: Abnormal imaging of central nervous [...] vena cava and terminating out of the idwte-qy-xozc. There is a heterogeneous nodule within the [...] DATE/TIME OF EXAM: 10/01/2023 12:28 AM, LOCATION [facility] INDICATION: R90.89: Abnormal imaging of central nervous [...] vena cava and terminating out of the cmnae-mv-sitw. There is a heterogeneous nodule within the [...] verification. Report dictated by Steve Street M.D. (assistant professor of radiology) 10/01/2023 12:40 AM IAugustine MD have personally reviewed and interpretedthis examination/study. > Interpreting Provider: Augustine Davison MD on 10/01/2023 8:30 AM Umair Tan MD CT ORDERABLES * GLUCOSE - POINT OF CARE (09/30/2023 9:15 PM ARTIST REPRESENTATIVE) Pathologist [facility] Glucose WB/POC 109 70 - 115 mg/dL 10/01/2023 7:48 PM [facility] Specimen Type Arterial 10/01/2023 7:48 PM [facility] Blood BLOOD SPECIMEN / Unknown 09/30/2023 9:15 PM ARTIST REPRESENTATIVE 10/01/2023 7:48 PM ARTIST REPRESENTATIVE Umair Tan MD LAB - POINT OF CARE ORDERABLES [facility] [address] [place] [address], [facility] [phone] * (ABNORMAL) DIFFERENTIAL MANUAL (09/30/2023 8:09 PM ARTIST REPRESENTATIVE) Neutrophil % 28(L) 41 - 74 % 10/01/2023 12:59 AM [facility] Lymphocyte % 44 17 - 47 % 10/01/2023 12:59 AM [facility] Monocyte % 26(H) 3 - 11 % 10/01/2023 12:59 AM [facility] Eosinophil % 1 0 - 7 % 10/01/2023 12:59 AM [facility] Myelocyte % 1(H) 0% % 10/01/2023 12:59 AM [facility] Neutrophil Absolute 1.15(L) 1.60 - 7.50 x10E9/L 10/01/2023 12:59 AM [facility] Lymphocyte Absolute 1.80 1.00 - 4.40 x10E9/L 10/01/2023 12:59 AM [facility] Monocyte Absolute 1.07(H) 0.15 - 1.00 x10E9/L 10/01/2023 12:59 AM [facility] Eosinophil Absolute 0.04 0.00 - 0.60 x10E9/L 10/01/2023 12:59 AM [facility] RBC Morphology NORMAL 10/01/2023 12:59 AM [facility] Large Platelets PRESENT(A) (none) 12:59 AM [facility] Blood BLOOD SPECIMEN / Unknown Venipuncture / Unknown 09/30/2023 8:09 PM ARTIST REPRESENTATIVE 09/30/2023 8:29 PM ARTIST REPRESENTATIVE Soraya Malik MD LAB - HEMATOLOG Y ORDERABLES [address] [address], [facility] [phone] * (ABNORMAL) FIBRINOGEN ACTIVITY (09/30/2023 8:09 PM ARTIST REPRESENTATIVE) Pathologist [facility] Fibrinogen Clauss 449(H) 200 - 400 mg/dL 09/30/2023 8:51 PM ARTIST REPRESENTATIVE [facility] Blood BLOOD SPECIMEN / Unknown Venipuncture / Unknown 09/30/2023 8:09 PM ARTIST REPRESENTATIVE 09/30/2023 8:21 PM ARTIST REPRESENTATIVE Umair Tan MD LAB - COAGULATION OR DERABLES [address] [address], [facility] [phone] * (ABNORMAL) CBC W AUTO DIFFERENTIAL (09/30/2023 8:09 PM ARTIST REPRESENTATIVE) Pathologist [facility] WBC 4.1 4.0 - 10.7 x10E9/L 10/01/2023 12:59 AM [facility] RBC Count 2.32(L) 3.90 - 5.20 x10E12/L 10/01/2023 12:59 AM [facility] Hemoglobin 7.1(L) 11.9 - 15.8 g/dL 10/01/2023 12:59 AM [facility] Hematocrit 20.4(L) 34.8 - 46.1 % 10/01/2023 12:59 AM [facility] MCV 87.9 80.0 - 98.0 fL 10/01/2023 12:59 AM [facility] MCH 30.6 26.7 - 33.6 pg 10/01/2023 12:59 AM [facility] MCHC 34.8 31.7 - 36.3 g/dL 10/01/2023 12:59 AM [facility] RDW-CV 14.1 11.3 - 14.8 % 10/01/2023 12:59 AM [facility] Platelet Count 97(L) 150 - 420 x10E9/L 10/01/2023 12:59 AM [facility] MPV 11.0 7.8 - 11.4 fL 10/01/2023 12:59 AM [facility] Preliminary Absolute Neutrophil 0.82(L) 1.60 - 7.50 x10E9/L 10/01/2023 12:59 AM [facility] NRBC 1.2(H) <=0.0 /100 WBC 10/01/2023 12:59 AM [facility] Blood BLOOD SPECIMEN / Unknown Venipuncture / Unknown 09/30/2023 8:09 PM ARTIST REPRESENTATIVE 09/30/2023 8:29 PM ARTIST REPRESENTATIVE Soraya Malik MD LAB - HEMATOLOG Y ORDERABLES [address] [address], [facility] [phone] * (ABNORMAL) PHOSPHORUS BLOOD (09/30/2023 8:09 PM ARTIST REPRESENTATIVE) Phosphorus 2.3(L) 2.9 - 5.1 mg/dL 09/30/2023 8:58 PM [facility] Blood BLOOD SPECIMEN / Unknown Venipuncture / Unknown 09/30/2023 8:09 PM ARTIST REPRESENTATIVE 09/30/2023 8:30 PM ARTIST REPRESENTATIVE Soraya Malik MD LAB - CHEMISTRY ORDERABLES Performing Organization Address City/[facility]/ZIP Co de Phone Number [address] [address], [facility] [phone] * MAGNESIUM BLOOD (09/30/2023 8:09 PM ARTIST REPRESENTATIVE) Magnesium 2.0 1.6 - 2.6 mg/dL 09/30/2023 8:58 PM [facility] Blood BLOOD SPECIMEN / Unknown Venipuncture / Unknown 09/30/2023 8:09 PM ARTIST REPRESENTATIVE 09/30/2023 8:30 PM ARTIST REPRESENTATIVE Soraya Malik MD LAB - CHEMISTRY ORDERABLES Performing Organization Address City/[facility]/ZIP Co de Phone Number [address] [address], [facility] [phone] * (ABNORMAL) COMPREHENSIVE METABOLIC PANEL (09/30/2023 8:09 PM ARTIST REPRESENTATIVE) BUN 6(L) 7 - 26 mg/dL 09/30/2023 8:58 PM [facility] Creatinine 0.56 0.56 - 0.96 mg/dL 09/30/2023 8:58 PM [facility] Sodium 147(H) 136 - 145 mmol/L 09/30/2023 8:58 PM [facility] Potassium 3.3(L) 3.5 - 4.5 mmol/L 09/30/2023 8:58 PM [facility] Chloride 113(H) 98 - 107 mmol/L 09/30/2023 8:58 PM [facility] CO2 23 22 - 29 mmol/L 09/30/2023 8:58 PM [facility] Glucose 112 70 - 115 mg/dL 09/30/2023 8:58 PM [facility] Calcium 8.7 8.4 - 10.2 mg/dL 09/30/2023 8:58 PM [facility] Protein Total 5.8(L) 6.0 - 8.3 g/dL 09/30/2023 8:58 PM [facility] Albumin 2.3(L) 3.4 - 5.0 g/dL 09/30/2023 8:58 PM [facility] Bilirubin Total 0.3 0.2 - 1.2 mg/dL 09/30/2023 8:58 PM [facility] Alkaline Phosphatase 57 40 - 150 U/L 09/30/2023 8:58 PM [facility] ALT 19 5 - 55 U/L 09/30/2023 8:58 PM [facility] AST 21 5 - 34 U/L 09/30/2023 8:58 PM [facility] Anion Gap 11 6 - 16 09/30/2023 8:58 PM [facility] BUN/Creatinine Ratio 11 7 - 23 09/30/2023 8:58 PM [facility] Osmolality Calculated 302(H) 275 - 295 mOsm/kg 09/30/2023 8:58 PM [facility] Albumin/Globulin Ratio 0.7(L) 1.1 - 2.3 09/30/2023 8:58 PM [facility] eGFR by CKD-EPI >90 >=90 mL/min/1.7 3 m2 09/30/2023 8:58 PM [facility] Blood BLOOD SPECIMEN / Unknown Venipuncture / Unknown 09/30/2023 8:09 PM ARTIST REPRESENTATIVE 09/30/2023 8:30 PM ARTIST REPRESENTATIVE Cheryl Cronin MD LAB - CHEMISTRY JON NAIDU [facility] Organization Address City/State/ZIP Co de Phone Number [facility] [address] [place] [address], [facility] [phone] * TRANSFUSE PLATELET PHERESIS UNIT(S) (09/30/2023 7:16 PM ARTIST REPRESENTATIVE) Umair Tan MD NURSING - BLOOD PROD TRANSFUSION * TRANSFUSE PLATELET PHERESIS UNIT(S), 1 Units (09/30/2023 7:16 PM ARTIST REPRESENTATIVE) Umair Tan MD NURSING - BLOOD PROD TRANSFUSION * PREPARE PLATELET PHERESIS UNIT(S), 1 Units (09/30/2023 6:06 PM ARTIST REPRESENTATIVE) Pathologist [facility] Unit Description LRPLTphere B7 IR [facility] Unit ABO O [facility] Unit Rh POS [facility] Product Number P30 [facility] Unit Donor # [id number] [facility] Unit Status transfused [facility] Product Code [id number] [facility] Blood Type Barcode 5100 [facility] Expiration Date S BLOOD BANK LAB Blood Bank BLOOD SPECIMEN / Unknown Umair Tan MD LAB - BLOOD BANK ORD ERABLES Performing Organization Address City/[facility]/ZIP Co de Phone Number [facility] [address] [place] [address], [employer] [phone] * GLUCOSE - POINT OF CARE (09/30/2023 5:05 PM ARTIST REPRESENTATIVE) [facility] Glucose WB/POC 111 70 - 115 mg/dL 09/30/2023 5:12 PM ARTIST REPRESENTATIVE [facility] Specimen Type Venous 09/30/2023 5:12 PM ARTIST REPRESENTATIVE [facility] Blood BLOOD SPECIMEN / Unknown 09/30/2023 5:05 PM ARTIST REPRESENTATIVE 09/30/2023 5:12 PM ARTIST REPRESENTATIVE Umair Tan MD LAB - POINT OF CARE ORDERABLES [facility] [address] [place] [phone], [place] [phone] * CT HEAD WO CONTRAST (09/30/2023 1:08 PM ARTIST REPRESENTATIVE) Anatomical Region Laterality Modality Head Computed Tomogra phy 09/30/2023 1:45 PM ARTIST REPRESENTATIVE Impressions 09/30/2023 4:43 PM ARTIST REPRESENTATIVE IMPRESSION: Redemonstration of a tiny amount of subarachnoid hemorrhage in the right central sulcus. These findings were discussed in detail with the patient's care provider, Dr. Tan by Dr. Sanchez via telephone at 4:43 PM on 09/30/2023 with readback comprehension and verification. Report dictated by Sivakumar Garrido DO (Video Arcade Manager). I, Romie Sanchez MD have personally reviewed and interpreted this examination/study. > Interpreting Provider: Romie Sanchez MD on 09/30/2023 4:43 PM Narrative 09/30/2023 4:43 PM ARTIST REPRESENTATIVE PROCEDURE: ??CT HEAD WO CONTRAST, DATE/TIME OF EXAM: ??09/30/2023 1:08 PM, LOCATION ??[facility] INDICATION: R90.89: Abnormal imaging of central nervous system EXAMINATION: Computed tomography (CT) of the head without contrast ADDITIONAL CLINICAL INFORMATION: Ordering Provider Reason For Exam: ??rule out subarachnoid hemorrhage d/t concerns for abnormal signals in right central sulci in MRI CONTRAST: ??None ?? TECHNIQUE: CT of the head was performed without contrast according to standard protocol. CT dose reduction technique was used, including Automated Exposure Control. COMPARISON: None available. FINDINGS: There is redemonstration of a small amount of subarachnoid hemorrhage in the right central sulcus. The ventricles are of normal size, shape, and morphology. The basilar cisterns are patent. No mass effect or midline shift is seen. The mejia-white matter differentiation is normal. No acute calvarial fracture is identified. The orbits appear normal. There is mild paranasal sinus disease. The mastoid air cells are clear. No soft tissue abnormality is identified. Procedure Note Romie Sanchez MD - 09/30/2023 PROCEDURE: CT HEAD WO CONTRAST, DATE/TIME OF EXAM: 09/30/2023 1:08 PM, LOCATION [facility] INDICATION: R90.89: Abnormal imaging of central nervous system EXAMINATION: Computed tomography (CT) of the head without contrast ADDITIONAL CLINICAL INFORMATION: Ordering Provider Reason For Exam: rule out subarachnoid hemorrhage d/t concerns for abnormal signals in right central sulci in MRI CONTRAST: None TECHNIQUE: CT of the head was performed without contrast according to standard protocol. CT dose reduction technique was used, including Automated Exposure Control. COMPARISON: None available. FINDINGS: There is redemonstration of a small amount of subarachnoid hemorrhage in the right central sulcus. The ventricles are of normal size, shape, and morphology. The basilar cisterns are patent. No mass effect or midline shift is seen. The mejia-white matter differentiation is normal. No acute calvarial fracture is identified. The orbits appear normal. There ismild paranasal sinus disease. The mastoid air cells are clear. No soft tissue abnormality is identified. IMPRESSION: Redemonstration of a tiny amount of subarachnoid hemorrhage in the right central sulcus. These findings were discussed in detail with the patient's careprovider, Dr. Tan by Dr. Sanchez via telephone at 4:43 PM on 09/30/2023 withreadback comprehension and verification. Report dictated by Sivakumar Garrido DO (Video Arcade Manager). I, Romie Sanchez MD have personally reviewed and interpreted this examination/study. > Interpreting Provider: Romie Sanchez MD on 09/30/2023 4:43 PM Umair Tan MD CT ORDERABLES * GLUCOSE - POINT OF CARE (09/30/2023 12:43 PM ARTIST REPRESENTATIVE) Glucose WB/POC 98 70 - 115 mg/dL 09/30/2023 12:48 PM ARTIST REPRESENTATIVE [facility] Specimen Type Cap Fingerstick 2023 12:48 PM ARTIST REPRESENTATIVE [facility] Blood BLOOD SPECIMEN / Unknown 09/30/2023 12:43 PM ARTIST REPRESENTATIVE 09/30/2023 12:48 PM ARTIST REPRESENTATIVE Umair Tan MD LAB - POINT OF CARE ORDERABLES [address] [address], [facility] [phone] * GLUCOSE - POINT OF CARE (09/30/2023 8:17 AM ARTIST REPRESENTATIVE) Glucose WB/POC 98 70 - 115 mg/dL 09/30/2023 8:28 AM ARTIST REPRESENTATIVE [facility] Specimen Type Cap Fingerstick 2023 8:28 AM ARTIST REPRESENTATIVE [facility] Blood BLOOD SPECIMEN / Unknown 09/30/2023 8:17 AM ARTIST REPRESENTATIVE 09/30/2023 8:28 AM ARTIST REPRESENTATIVE Umair Tan MD LAB - POINT OF CARE ORDERABLES Performing Organization Address [facility]/ZIP Co de Phone Number [address] [address], [place] [phone] * GLUCOSE - POINT OF CARE (09/30/2023 6:43 AM ARTIST REPRESENTATIVE) Glucose WB/POC 95 70 - 115 mg/dL 09/30/2023 8:24 AM [facility] Specimen Type Cap Fingerstick 2023 8:24 AM [facility] Blood BLOOD SPECIMEN / Unknown 09/30/2023 6:43 AM ARTIST REPRESENTATIVE 09/30/2023 8:24 AM ARTIST REPRESENTATIVE Librado Mora DO LAB - POINT OF CARE ORDERABLES Performing Organization Address [facility] Co de Phone Number [address] [address], [place] [phone] * (ABNORMAL) FIBRINOGEN ACTIVITY (09/30/2023 2:09 AM ARTIST REPRESENTATIVE) Fibrinogen Clauss 499(H) 200 - 400 mg/dL 09/30/2023 2:41 AM [facility] Blood BLOOD SPECIMEN / Unknown Venipuncture / Unknown 09/30/2023 2:09 AM ARTIST REPRESENTATIVE 09/30/2023 2:18 AM ARTIST REPRESENTATIVE Librado Mora DO LAB - COAGULATION OR DERABLES Performing Organization Address City/[facility]/ZIP Co de Phone Number [address] [address], [place] [phone] * (ABNORMAL) DIFFERENTIAL MANUAL (09/29/2023 9:30 PM ARTIST REPRESENTATIVE) Neutrophil % 22(L) 41 - 74 % 09/30/2023 12:28 AM [facility] Lymphocyte % 40 17 - 47 % 09/30/2023 12:28 AM [facility] Monocyte % 36(H) 3 - 11 % 09/30/2023 12:28 AM [facility] Myelocyte % 2(H) 0% % 09/30/2023 12:28 AM [facility] Neutrophil Absolute 0.64(L) 1.60 - 7.50 x10E9/L 09/30/2023 12:28 AM [facility] Lymphocyte Absolute 1.16 1.00 - 4.40 x10E9/L 09/30/2023 12:28 AM [facility] Monocyte Absolute 1.04(H) 0.15 - 1.00 x10E9/L 09/30/2023 12:28 AM [facility] RBC Morphology NORMAL 09/30/2023 12:28 AM [facility] Large Platelets PRESENT(A) (none) 12:28 AM [facility] Blood BLOOD SPECIMEN / Unknown Venipuncture / Unknown 09/29/2023 9:30 PM ARTIST REPRESENTATIVE 09/29/2023 9:50 PM [facility] Soraya Malik MD LAB - HEMATOLOG Y ORDERABLES Performing Organization Address City/State/[facility] Co de Phone Number [facility] [address] [place] [phone] [phone] * (ABNORMAL) CBC W AUTO DIFFERENTIAL (09/29/2023 9:30 PM [facility]) WBC 2.9(L) 4.0 - 10.7 x10E9/L 09/30/2023 12:28 AM [facility] RBC Count 2.30(L) 3.90 - 5.20 x10E12/L 09/30/2023 12:28 AM [facility] Hemoglobin 7.1(L) 11.9 - 15.8 g/dL 09/30/2023 12:28 AM [facility] Hematocrit 20.0(L) 34.8 - 46.1 % 09/30/2023 12:28 AM [facility] MCV 87.0 80.0 - 98.0 fL 09/30/2023 12:28 AM [facility] MCH 30.9 26.7 - 33.6 pg 09/30/2023 12:28 AM [facility] MCHC 35.5 31.7 - 36.3 g/dL 09/30/2023 12:28 AM [facility] RDW-CV 13.8 11.3 - 14.8 % 09/30/2023 12:28 AM [facility] Platelet Count 44(L) 150 - 420 x10E9/L 09/30/2023 12:28 AM [facility] MPV 11.9(H) 7.8 - 11.4 fL 09/30/2023 12:28 AM [facility] Preliminary Absolute Neutrophil 0.58(L) 1.60 - 7.50 x10E9/L 09/30/2023 12:28 AM [facility] Blood BLOOD SPECIMEN / Unknown Venipuncture / Unknown 09/29/2023 9:30 PM ARTIST REPRESENTATIVE 09/29/2023 9:50 PM ARTIST REPRESENTATIVE Soraya Malik MD LAB - HEMATOLOG Y ORDERABLES [address] [address], [facility] [phone] * (ABNORMAL) PHOSPHORUS BLOOD (09/29/2023 9:30 PM ARTIST REPRESENTATIVE) Phosphorus 1.9(L) 2.9 - 5.1 mg/dL 09/29/2023 10:18 PM [facility] Blood BLOOD SPECIMEN / Unknown Venipuncture / Unknown 09/29/2023 9:30 PM ARTIST REPRESENTATIVE 09/29/2023 9:50 PM ARTIST REPRESENTATIVE Soraya Malik MD LAB - CHEMISTRY ORDERABLES [address] [address], [facility] [phone] * MAGNESIUM BLOOD (09/29/2023 9:30 PM ARTIST REPRESENTATIVE) Magnesium 2.1 1.6 - 2.6 mg/dL 09/29/2023 10:18 PM [facility] Blood BLOOD SPECIMEN / Unknown Venipuncture / Unknown 09/29/2023 9:30 PM ARTIST REPRESENTATIVE 09/29/2023 9:50 PM [facility] Soraya Malik MD LAB - CHEMISTRY ORDERABLES [facility] [address] [place] [address], [facility] [phone] * (ABNORMAL) COMPREHENSIVE METABOLIC PANEL (09/29/2023 9:30 PM ARTIST REPRESENTATIVE) BUN 6(L) 7 - 26 mg/dL 09/29/2023 10:18 PM [facility] Creatinine 0.55(L) 0.56 - 0.96 mg/dL 09/29/2023 10:18 PM [facility] Sodium 141 136 - 145 mmol/L 09/29/2023 10:18 PM [facility] Potassium 3.5 3.5 - 4.5 mmol/L 09/29/2023 10:18 PM [facility] Chloride 110(H) 98 - 107 mmol/L 09/29/2023 10:18 PM [facility] CO2 25 22 - 29 mmol/L 09/29/2023 10:18 PM [facility] Glucose 109 70 - 115 mg/dL 09/29/2023 10:18 PM [facility] Calcium 8.4 8.4 - 10.2 mg/dL 09/29/2023 10:18 PM [facility] Protein Total 5.6(L) 6.0 - 8.3 g/dL 09/29/2023 10:18 PM [facility] Albumin 2.1(L) 3.4 - 5.0 g/dL 09/29/2023 10:18 PM [facility] Bilirubin Total 0.4 0.2 - 1.2 mg/dL 09/29/2023 10:18 PM [facility] Alkaline Phosphatase 52 40 - 150 U/L 09/29/2023 10:18 PM [facility] ALT 16 5 - 55 U/L 09/29/2023 10:18 PM [facility] AST 14 5 - 34 U/L 09/29/2023 10:18 PM [facility] Anion Gap 6 6 - 16 09/29/2023 10:18 PM [facility] BUN/Creatinine Ratio 11 7 - 23 09/29/2023 10:18 PM [facility] Osmolality Calculated 290 275 - 295 mOsm/kg 09/29/2023 10:18 PM [facility] Albumin/Globulin Ratio 0.6(L) 1.1 - 2.3 09/29/2023 10:18 PM [facility] eGFR by CKD-EPI >90 >=90 mL/min/1.7 3 m2 09/29/2023 10:18 PM [facility] Blood BLOOD SPECIMEN / Unknown Venipuncture / Unknown 09/29/2023 9:30 PM ARTIST REPRESENTATIVE 09/29/2023 9:50 PM ARTIST REPRESENTATIVE Cheryl Cronin MD LAB - CHEMISTRY JON NAIDU [address] [address], [place] [phone] * GLUCOSE - POINT OF CARE (09/29/2023 9:22 PM ARTIST REPRESENTATIVE) Pathologist [facility] Glucose WB/POC 113 70 - 115 mg/dL 09/29/2023 9:23 PM [facility] Specimen Type Cap Fingerstick 2023 9:23 PM [facility] Blood BLOOD SPECIMEN / Unknown 09/29/2023 9:22 PM ARTIST REPRESENTATIVE 09/29/2023 9:23 PM ARTIST REPRESENTATIVE Librado Mora DO LAB - POINT OF CARE ORDERABLES [address] [address], [place] [phone] * MRI ORBITS OR FACE WWO CONTRAST (09/29/2023 9:19 PM ARTIST REPRESENTATIVE) Anatomical Region Laterality Modality Head Magnetic Resonan ce 09/30/2023 10:2 3 AM ARTIST REPRESENTATIVE Impressions 09/30/2023 1:43 PM ARTIST REPRESENTATIVE IMPRESSION: 1.There is lack of FLAIR suppression [...] report was drafted by Mary Muir MD (Video Arcade Manager). Preliminary findings were discussed in detail with the patient's care provider, Dr. Tan by Dr. Muir via telephone at 11:03 AM on 09/30/2023 with readback comprehension and verification. I, Sara Huitron MD have personally reviewed and interpreted this examination/study. 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 (accession [id number]) Technologist Note: Additional: COMPARISON: TECHNIQUE: MRI of [...] DATE/TIME OF EXAM: 09/29/2023 9:19 PM, LOCATION [facility] INDICATION: 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 Preliminary findings were discussed in detail with the patient's care provider, Dr. Tan by Dr. Muir via telephone at 11:03 AM on 09/30/2023 with readback comprehension and verification. I, Sara Huitron MD have personally reviewed and interpreted this examination/study. > Interpreting Provider: Sara Huitron MD on 09/30/2023 1:43 PM Librado Mora DO MR ORDERABLES * MRI BRAIN WWO CONTRAST (09/29/2023 9:18 PM ARTIST REPRESENTATIVE) Anatomical Region Laterality Modality Head Magnetic Resonan ce 09/30/2023 10:2 3 AM ARTIST REPRESENTATIVE Impressions 09/30/2023 1:43 PM ARTIST REPRESENTATIVE IMPRESSION: 1.There is lack of FLAIR suppression [...] report was drafted by Mary Muir MD (Video Arcade Manager). Preliminary findings were discussed in detail with the patient's care provider, Dr. Tan by Dr. Muir via telephone at 11:03 AM on 09/30/2023 with readback comprehension and verification. I, Sara Huitron MD have personally reviewed and interpreted this examination/study. 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 (accession [id number]) Technologist Note: Additional: COMPARISON: TECHNIQUE: MRI of [...] DATE/TIME OF EXAM: 09/29/2023 9:19 PM, LOCATION [facility] 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 Preliminary findings were discussed in detail with the patient's care provider, Dr. Tan by Dr. Muir via telephone at 11:03 AM on 09/30/2023 with readback comprehension and verification. I, Sara Huitron MD have personally reviewed and interpreted this examination/study. > Interpreting Provider: Sara Huitron MD on 09/30/2023 1:43 PM Librado Mora DO MR ORDERABLES * GLUCOSE - POINT OF CARE (09/29/2023 4:36 PM ARTIST REPRESENTATIVE) Glucose WB/POC 103 70 - 115 mg/dL 09/29/2023 4:38 PM ARTIST REPRESENTATIVE [facility] Specimen Type Arterial 09/29/2023 4:38 PM ARTIST REPRESENTATIVE [facility] Blood BLOOD SPECIMEN / Unknown 09/29/2023 4:36 PM ARTIST REPRESENTATIVE 09/29/2023 4:38 PM ARTIST REPRESENTATIVE Librado [facility] LAB - POINT OF CARE ORDERABLES [facility] [address] [place] [phone], [facility] [phone] * TRANSFUSION REACTION PANEL (09/29/2023 4:05 PM ARTIST REPRESENTATIVE) Direct Vladimir (RICHI) NEG 09/29 5:29 PM ARTIST REPRESENTATIVE [facility] Comment:RICHI READ MICROSCOPIC ALLY ABO Rh O POS 09/29/2023 5:29 PM ARTIST REPRESENTATIVE [facility] Blood Bank BLOOD SPECIMEN / Unknown Line Draw / Unknown 09/29/2023 4:05 PM ARTIST REPRESENTATIVE 09/29/2023 4:25 PM ARTIST REPRESENTATIVE Librado [facility] LAB - BLOOD BANK ORD ERABLES [facility] [address] [place] [id number], [place] [phone] * GLUCOSE - POINT OF CARE (09/29/2023 11:59 AM ARTIST REPRESENTATIVE) Glucose WB/POC 79 70 - 115 mg/dL 09/29/2023 12:02 PM ARTIST REPRESENTATIVE [facility] Specimen Type Arterial 09/29/2023 12:02 PM ARTIST REPRESENTATIVE [facility] Blood BLOOD SPECIMEN / Unknown 09/29/2023 11:59 AM ARTIST REPRESENTATIVE 09/29/2023 12:02 PM ARTIST REPRESENTATIVE [facility] - POINT OF CARE ORDERABLES [facility] [address] [place] [id number], [place] [phone] * GLUCOSE - POINT OF CARE (09/29/2023 8:51 AM ARTIST REPRESENTATIVE) Glucose WB/POC 97 70 - 115 mg/dL 09/29/2023 8:58 AM ARTIST REPRESENTATIVE [facility] Specimen Type Arterial 09/29/2023 8:58 AM ARTIST REPRESENTATIVE [facility] Blood BLOOD SPECIMEN / Unknown 09/29/2023 8:51 AM ARTIST REPRESENTATIVE 09/29/2023 8:58 AM ARTIST REPRESENTATIVE [facility] - POINT OF CARE ORDERABLES Performing Organization Address City/[facility]/ZIP Co de Phone Number [facility] [address] [place] [phone], [place] [phone] * PREPARE PLATELET PHERESIS UNIT(S), 1 Units (09/29/2023 1:17 AM ARTIST REPRESENTATIVE) Unit Description N/A [facility] BLOOD [facility] LAB Blood Bank BLOOD SPECIMEN / Unknown 09/25/2023 1:49 AM ARTIST REPRESENTATIVE Jair Burgess MD LAB - BLOOD BANK ORD ERABLES [facility] LAB [address] [place] [address], [place] [phone] * (ABNORMAL) DIFFERENTIAL MANUAL (09/28/2023 8:20 PM ARTIST REPRESENTATIVE) Pathologist [facility] Neutrophil % 21(L) 41 - 74 % 09/28/2023 11:28 PM [facility] Lymphocyte % 50(H) 17 - 47 % 09/28/2023 11:28 PM [facility] Monocyte % 29(H) 3 - 11 % 09/28/2023 11:28 PM [facility] Neutrophil Absolute 0.42(L) 1.60 - 7.50 x10E9/L 09/28/2023 11:28 PM [facility] Lymphocyte Absolute 1.00 1.00 - 4.40 x10E9/L 09/28/2023 11:28 PM [facility] Monocyte Absolute 0.58 0.15 - 1.00 x10E9/L 09/28/2023 11:28 PM [facility] RBC Morphology NORMAL 09/28/2023 11:28 PM [facility] Large Platelets PRESENT(A) (none) 11:28 PM [facility] Blood BLOOD SPECIMEN / Unknown Venipuncture / Unknown 09/28/2023 8:20 PM ARTIST REPRESENTATIVE 09/28/2023 9:27 PM [facility] Soraya Malik MD LAB - HEMATOLOG Y ORDERABLES Performing Organization Address City/State/[facility] Co de Phone Number [facility] [address] [place] [phone], [facility] [phone] * (ABNORMAL) CBC W AUTO DIFFERENTIAL (09/28/2023 8:20 PM ARTIST REPRESENTATIVE) [facility] WBC 2.0(L) 4.0 - 10.7 x10E9/L 09/28/2023 11:28 PM [facility] RBC Count 2.37(L) 3.90 - 5.20 x10E12/L 09/28/2023 11:28 PM [facility] Hemoglobin 7.4(L) 11.9 - 15.8 g/dL 09/28/2023 11:28 PM [facility] Hematocrit 20.6(L) 34.8 - 46.1 % 09/28/2023 11:28 PM [facility] MCV 86.9 80.0 - 98.0 fL 09/28/2023 11:28 PM [facility] MCH 31.2 26.7 - 33.6 pg 09/28/2023 11:28 PM [facility] MCHC 35.9 31.7 - 36.3 g/dL 09/28/2023 11:28 PM [facility] RDW-CV 13.8 11.3 - 14.8 % 09/28/2023 11:28 PM [facility] Platelet Count 34(L) 150 - 420 x10E9/L 09/28/2023 11:28 PM [facility] MPV 11.3 7.8 - 11.4 fL 09/28/2023 11:28 PM [facility] Preliminary Absolute Neutrophil 0.39(L) 1.60 - 7.50 x10E9/L 09/28/2023 11:28 PM [facility] Blood BLOOD SPECIMEN / Unknown Venipuncture / Unknown 09/28/2023 8:20 PM ARTIST REPRESENTATIVE 09/28/2023 9:27 PM ARTIST REPRESENTATIVE Soraya Malik MD LAB - HEMATOLOG Y ORDERABLES [address] [phone], [facility] [phone] * (ABNORMAL) PHOSPHORUS BLOOD (09/28/2023 8:20 PM ARTIST REPRESENTATIVE) Phosphorus 1.8(L) 2.9 - 5.1 mg/dL 09/28/2023 9:55 PM [facility] Blood BLOOD SPECIMEN / Unknown Venipuncture / Unknown 09/28/2023 8:20 PM ARTIST REPRESENTATIVE 09/28/2023 9:27 PM ARTIST REPRESENTATIVE Soraya Malik MD LAB - CHEMISTRY ORDERABLES [address] [phone], [facility] [phone] * MAGNESIUM BLOOD (09/28/2023 8:20 PM ARTIST REPRESENTATIVE) Pathologist [facility] Magnesium 2.0 1.6 - 2.6 mg/dL 09/28/2023 9:55 PM [facility] Blood BLOOD SPECIMEN / Unknown Venipuncture / Unknown 09/28/2023 8:20 PM ARTIST REPRESENTATIVE 09/28/2023 9:27 PM ARTIST REPRESENTATIVE Soraya Malik MD LAB - CHEMISTRY ORDERABLES [facility] [address] [place] [address], [facility] [phone] * (ABNORMAL) COMPREHENSIVE METABOLIC PANEL (09/28/2023 8:20 PM ARTIST REPRESENTATIVE) Pathologist [facility] BUN 5(L) 7 - 26 mg/dL 09/28/2023 9:55 PM [facility] Creatinine 0.56 0.56 - 0.96 mg/dL 09/28/2023 9:55 PM [facility] Sodium 137 136 - 145 mmol/L 09/28/2023 9:55 PM [facility] Potassium 3.1(L) 3.5 - 4.5 mmol/L 09/28/2023 9:55 PM [facility] Chloride 104 98 - 107 mmol/L 09/28/2023 9:55 PM [facility] CO2 24 22 - 29 mmol/L 09/28/2023 9:55 PM [facility] Glucose 114 70 - 115 mg/dL 09/28/2023 9:55 PM [facility] Calcium 8.2(L) 8.4 - 10.2 mg/dL 09/28/2023 9:55 PM [facility] Protein Total 6.0 6.0 - 8.3 g/dL 09/28/2023 9:55 PM [facility] Albumin 2.2(L) 3.4 - 5.0 g/dL 09/28/2023 9:55 PM [facility] Bilirubin Total 0.5 0.2 - 1.2 mg/dL 09/28/2023 9:55 PM [facility] Alkaline Phosphatase 57 40 - 150 U/L 09/28/2023 9:55 PM [facility] ALT 19 5 - 55 U/L 09/28/2023 9:55 PM [facility] AST 17 5 - 34 U/L 09/28/2023 9:55 PM [facility] Anion Gap 9 6 - 16 09/28/2023 9:55 PM [facility] BUN/Creatinine Ratio 9 7 - 23 09/28/2023 9:55 PM [facility] Osmolality Calculated 282 275 - 295 mOsm/kg 09/28/2023 9:55 PM [facility] Albumin/Globulin Ratio 0.6(L) 1.1 - 2.3 09/28/2023 9:55 PM [facility] eGFR by CKD-EPI >90 >=90 mL/min/1.7 3 m2 09/28/2023 9:55 PM [facility] Blood BLOOD SPECIMEN / Unknown Venipuncture / Unknown 09/28/2023 8:20 PM ARTIST REPRESENTATIVE 09/28/2023 9:27 PM ARTIST REPRESENTATIVE Cheryl Cronin MD LAB - CHEMISTRY JON NAIDU Performing Organization Address City/[facility]/ZIP Co de Phone Number [address] [address], [facility] [phone] * (ABNORMAL) GLUCOSE - POINT OF CARE (09/28/2023 8:14 PM ARTIST REPRESENTATIVE) Glucose WB/POC 116(H) 70 - 115 mg/dL 09/28/2023 8:23 PM [facility] Specimen Type Cap Fingerstick 2023 8:23 PM [facility] Blood BLOOD SPECIMEN / Unknown 09/28/2023 8:14 PM ARTIST REPRESENTATIVE 09/28/2023 8:23 PM ARTIST REPRESENTATIVE Kate Price DO LAB - POINT OF CARE ORDERABLES [address] [address], [place] [phone] * (ABNORMAL) GLUCOSE - POINT OF CARE (09/28/2023 4:42 PM ARTIST REPRESENTATIVE) Glucose WB/POC 140(H) 70 - 115 mg/dL 09/28/2023 8:23 PM ARTIST REPRESENTATIVE [facility] Specimen Type Cap Fingerstick 2023 8:23 PM ARTIST REPRESENTATIVE [facility] Blood BLOOD SPECIMEN / Unknown 09/28/2023 4:42 PM ARTIST REPRESENTATIVE 09/28/2023 8:23 PM ARTIST REPRESENTATIVE Kate Katie DO LAB - POINT OF CARE ORDERABLES [facility] [address] [place] [address], [place] [phone] * GLUCOSE - POINT OF CARE (09/28/2023 1:00 PM ARTIST REPRESENTATIVE) Glucose WB/POC 99 70 - 115 mg/dL 09/28/2023 1:01 PM ARTIST REPRESENTATIVE [facility] Specimen Type Cap Fingerstick 2023 1:01 PM ARTIST REPRESENTATIVE [facility] Blood BLOOD SPECIMEN / Unknown 09/28/2023 1:00 PM ARTIST REPRESENTATIVE 09/28/2023 1:01 PM ARTIST REPRESENTATIVE Kate Katie DO LAB - POINT OF CARE ORDERABLES Performing Organization Address [facility]/ZIP Co de Phone Number [facility] [address] [place] [phone], [place] [phone] * XR CHEST 1VW PORTABLE (09/28/2023 11:51 AM ARTIST REPRESENTATIVE) Anatomical Region Laterality Modality Chest Radiographic Ammy ging 09/28/2023 12:4 9 PM ARTIST REPRESENTATIVE Narrative 09/28/2023 2:39 PM ARTIST REPRESENTATIVE PROCEDURE: ??XR CHEST 1VW PORTABLE, DATE/TIME OF EXAM: ??09/28/2023 11:51 AM, LOCATION ??[facility] INDICATION: R05.1: Acute cough ADDITIONAL CLINICAL INFORMATION: Ordering Provider Reason For Exam: ??Evaluate for rib fracture and/or consolidation Technologist Note: Additional: COMPARISON: Chest x-ray 09/26/2023 CT chest 09/22/2023 FINDINGS/IMPRESSION: Right internal jugular approach central venous catheter terminates in the cavoatrial junction. Unchanged diffuse interstitial prominence, could represent pulmonary vascular congestion and/or interstitial pneumonia no pleural effusion or pneumothorax. The cardiomediastinal silhouette is normal. The visible bony thorax is intact. Report dictated by Hermelindo Briceno MD, (assistant professor of radiology). Fabien Bartholomew DO have personally reviewed and interpreted this examination/study. > Interpreting Provider: Fabien Yin DO on 09/28/2023 2:39 PM Procedure Note Fabien Yin DO - 09/28/2023 PROCEDURE: XR CHEST 1VW PORTABLE, DATE/TIME OF EXAM: 09/28/2023 11:51AM, LOCATION [facility] INDICATION: R05.1: Acute cough ADDITIONAL CLINICAL INFORMATION: Ordering Provider Reason For Exam: Evaluate for rib fracture and/or consolidation Technologist Note: Additional: COMPARISON: Chest x-ray 09/26/2023 CT chest 09/22/2023 FINDINGS/IMPRESSION: Right internal jugular approach central venous catheter terminates inthe cavoatrial junction. Unchanged diffuse interstitial prominence, could represent pulmonary vascular congestion and/or interstitial pneumonia no pleural effusion or pneumothorax. The cardiomediastinal silhouette is normal. The visiblebony thorax is intact. Report dictated by Hermelindo Briceno MD, (assistant professor of radiology). Fabien Bartholomew DO have personally reviewed and interpreted this examination/study. > Interpreting Provider: Fabien Yin DO on 09/28/2023 2:39 PM Kate Price DO DIAGNOSTIC IMAGING O RDERABLES * GLUCOSE - POINT OF CARE (09/28/2023 8:42 AM ARTIST REPRESENTATIVE) Glucose WB/POC 96 70 - 115 mg/dL 09/28/2023 8:42 AM ARTIST REPRESENTATIVE [facility] Specimen Type Cap Fingerstick 2023 8:42 AM ARTIST REPRESENTATIVE [facility] Blood BLOOD SPECIMEN / Unknown 09/28/2023 8:42 AM ARTIST REPRESENTATIVE 09/28/2023 8:42 AM ARTIST REPRESENTATIVE [facility] Katie DO LAB - POINT OF CARE ORDERABLES Performing Organization Address [facility]/ZIP Co de Phone Number [address] [phone], [facility] [phone] * GLUCOSE - POINT OF CARE (09/27/2023 8:21 PM ARTIST REPRESENTATIVE) Glucose WB/POC 111 70 - 115 mg/dL 09/27/2023 8:24 PM [facility] Specimen Type Cap Fingerstick 2023 8:24 PM [facility] Blood BLOOD SPECIMEN / Unknown 09/27/2023 8:21 PM ARTIST REPRESENTATIVE 09/27/2023 8:24 PM ARTIST REPRESENTATIVE [facility] LAB - POINT OF CARE ORDERABLES Performing Organization Address [facility]/ZIP Co de Phone Number [address] [address], [facility] [phone] * (ABNORMAL) DIFFERENTIAL MANUAL (09/27/2023 8:20 PM ARTIST REPRESENTATIVE) Neutrophil % 12(L) 41 - 74 % 09/27/2023 10:52 PM [facility] Lymphocyte % 60(H) 17 - 47 % 09/27/2023 10:52 PM [facility] Monocyte % 28(H) 3 - 11 % 09/27/2023 10:52 PM [facility] Neutrophil Absolute 0.10(L) 1.60 - 7.50 x10E9/L 09/27/2023 10:52 PM [facility] Lymphocyte Absolute 0.48(L) 1.00 - 4.40 x10E9/L 09/27/2023 10:52 PM [facility] Monocyte Absolute 0.22 0.15 - 1.00 x10E9/L 09/27/2023 10:52 PM [facility] RBC Morphology NORMAL 09/27/2023 10:52 PM [facility] Large Platelets PRESENT(A) (none) 10:52 PM [facility] Blood BLOOD SPECIMEN / Unknown Venipuncture / Unknown 09/27/2023 8:20 PM ARTIST REPRESENTATIVE 09/27/2023 10:13 PM ARTIST REPRESENTATIVE Soraya Malik MD LAB - HEMATOLOG Y ORDERABLES [facility] [address] [place] [address], [facility] [phone] * (ABNORMAL) CBC W AUTO DIFFERENTIAL (09/27/2023 8:20 PM ARTIST REPRESENTATIVE) WBC 0.8(LL) 4.0 - 10.7 x10E9/L 09/28/2023 4:12 AM [facility] RBC Count 2.30(L) 3.90 - 5.20 x10E12/L 09/28/2023 4:12 AM [facility] Hemoglobin 7.0(L) 11.9 - 15.8 g/dL 09/28/2023 4:12 AM [facility] Hematocrit 19.4(L) 34.8 - 46.1 % 09/28/2023 4:12 AM [facility] MCV 84.3 80.0 - 98.0 fL 09/28/2023 4:12 AM [facility] MCH 30.4 26.7 - 33.6 pg 09/28/2023 4:12 AM [facility] MCHC 36.1 31.7 - 36.3 g/dL 09/28/2023 4:12 AM [facility] RDW-CV 13.5 11.3 - 14.8 % 09/28/2023 4:12 AM [facility] Platelet Count 28(L) 150 - 420 x10E9/L 09/28/2023 4:12 AM [facility] MPV 11.0 7.8 - 11.4 fL 09/28/2023 4:12 AM [facility] Preliminary Absolute Neutrophil 0.11(L) 1.60 - 7.50 x10E9/L 09/28/2023 4:12 AM [facility] Blood BLOOD SPECIMEN / Unknown Venipuncture / Unknown 09/27/2023 8:20 PM ARTIST REPRESENTATIVE 09/27/2023 10:13 PM ARTIST REPRESENTATIVE Soraya Malik MD LAB - HEMATOLOG Y ORDERABLES Performing Organization Address [facility]/ZIP Co de Phone Number [address] [address], [facility] [phone] * (ABNORMAL) PHOSPHORUS BLOOD (09/27/2023 8:20 PM ARTIST REPRESENTATIVE) Phosphorus 1.4(L) 2.9 - 5.1 mg/dL 09/27/2023 10:42 PM ARTIST REPRESENTATIVE [facility] Blood BLOOD SPECIMEN / Unknown Venipuncture / Unknown 09/27/2023 8:20 PM ARTIST REPRESENTATIVE 09/27/2023 10:13 PM ARTIST REPRESENTATIVE Soraya Malik MD LAB - CHEMISTRY ORDERABLES Performing Organization Address [facility] Co de Phone Number [address] [phone], [facility] [phone] * MAGNESIUM BLOOD (09/27/2023 8:20 PM ARTIST REPRESENTATIVE) Magnesium 2.1 1.6 - 2.6 mg/dL 09/27/2023 10:42 PM ARTIST REPRESENTATIVE [facility] Blood BLOOD SPECIMEN / Unknown Venipuncture / Unknown 09/27/2023 8:20 PM ARTIST REPRESENTATIVE 09/27/2023 10:13 PM ARTIST REPRESENTATIVE Soraya Malik MD LAB - CHEMISTRY ORDERABLES Performing Organization Address [facility]/ZIP Co de Phone Number [address] [address], [facility] [phone] * (ABNORMAL) COMPREHENSIVE METABOLIC PANEL (09/27/2023 8:20 PM ARTIST REPRESENTATIVE) BUN <5(L) 7 - 26 mg/dL 09/27/2023 10:42 PM ARTIST REPRESENTATIVE [facility] Creatinine 0.56 0.56 - 0.96 mg/dL 09/27/2023 10:42 PM ARTIST REPRESENTATIVE [facility] Sodium 135(L) 136 - 145 mmol/L 09/27/2023 10:42 PM [facility] Potassium 3.4(L) 3.5 - 4.5 mmol/L 09/27/2023 10:42 PM [facility] Chloride 101 98 - 107 mmol/L 09/27/2023 10:42 PM [facility] CO2 24 22 - 29 mmol/L 09/27/2023 10:42 PM [facility] Glucose 106 70 - 115 mg/dL 09/27/2023 10:42 PM [facility] Calcium 7.9(L) 8.4 - 10.2 mg/dL 09/27/2023 10:42 PM [facility] Protein Total 5.8(L) 6.0 - 8.3 g/dL 09/27/2023 10:42 PM [facility] Albumin 2.0(L) 3.4 - 5.0 g/dL 09/27/2023 10:42 PM [facility] Bilirubin Total 0.6 0.2 - 1.2 mg/dL 09/27/2023 10:42 PM [facility] Alkaline Phosphatase 52 40 - 150 U/L 09/27/2023 10:42 PM [facility] ALT 15 5 - 55 U/L 09/27/2023 10:42 PM [facility] AST 16 5 - 34 U/L 09/27/2023 10:42 PM [facility] Anion Gap 10 6 - 16 09/27/2023 10:42 PM [facility] BUN/Creatinine Ratio <9 7 - 23 09/27/2023 10:42 PM [facility] Osmolality Calculated <278 275 - 295 mOsm/kg 09/27/2023 10:42 PM [facility] Albumin/Globulin Ratio 0.5(L) 1.1 - 2.3 09/27/2023 10:42 PM [facility] eGFR by CKD-EPI >90 >=90 mL/min/1.7 3 m2 09/27/2023 10:42 PM [facility] Blood BLOOD SPECIMEN / Unknown Venipuncture / Unknown 09/27/2023 8:20 PM [facility] 09/27/2023 10:13 PM ARTIST REPRESENTATIVE Cheryl Cronin MD LAB - CHEMISTRY JON NAIDU [address] [address], [place] [phone] * (ABNORMAL) GLUCOSE - POINT OF CARE (09/27/2023 5:39 PM ARTIST REPRESENTATIVE) Glucose WB/POC 120(H) 70 - 115 mg/dL 09/27/2023 5:43 PM ARTIST REPRESENTATIVE [facility] Specimen Type Cap Fingerstick 2023 5:43 PM ARTIST REPRESENTATIVE [facility] Blood BLOOD SPECIMEN / Unknown 09/27/2023 5:39 PM ARTIST REPRESENTATIVE 09/27/2023 5:43 PM ARTIST REPRESENTATIVE Kate Katie DO LAB - POINT OF CARE ORDERABLES Performing Organization Address City/[facility]/ZIP Co de Phone Number [address] [address], [place] [phone] * GLUCOSE - POINT OF CARE (09/27/2023 12:41 PM ARTIST REPRESENTATIVE) Glucose WB/POC 107 70 - 115 mg/dL 09/27/2023 5:43 PM ARTIST REPRESENTATIVE [facility] Specimen Type Cap Fingerstick 2023 5:43 PM ARTIST REPRESENTATIVE [facility] Blood BLOOD SPECIMEN / Unknown 09/27/2023 12:41 PM ARTIST REPRESENTATIVE 09/27/2023 5:43 PM ARTIST REPRESENTATIVE Kate Katie DO LAB - POINT OF CARE ORDERABLES [address] [address], [place] [phone] * ECHO LIMITED OR FOLLOWUP (09/27/2023 9:36 AM ARTIST REPRESENTATIVE) BSA [id number] m2 [facility] CV FUJ I PACS RV-wall [...] 2.387 cm [facility] C V FUJI PACS [id number] 7.722 cm [facility] CV FUJ I PACS [id number] 7.224 cm [facility] CV FUJ I PACS [...] Laterality Modality Ultrasound Narrative 09/27/2023 9:30 PM ARTIST REPRESENTATIVE ?Left??Ventricle: Left ventricle size is normal. EDV [...] normal. Jair Burgess MD ECHO CUPID * GLUCOSE - POINT OF CARE (09/27/2023 8:28 AM ARTIST REPRESENTATIVE) [facility] Glucose WB/POC 102 70 - 115 mg/dL 09/27/2023 8:29 AM [facility] Specimen Type Cap Fingerstick 2023 8:29 AM [facility] Blood BLOOD SPECIMEN / Unknown 09/27/2023 8:28 AM ARTIST REPRESENTATIVE 09/27/2023 8:29 AM [facility] Kate Price DO LAB - POINT OF CARE ORDERABLES [facility] [address] [place] [phone], [facility] [phone] * (ABNORMAL) DIFFERENTIAL MANUAL (09/27/2023 12:48 AM ARTIST REPRESENTATIVE) Pathologist [facility] Neutrophil % 8(L) 41 - 74 % 09/27/2023 2:18 AM [facility] Lymphocyte % 84(H) 17 - 47 % 09/27/2023 2:18 AM [facility] Monocyte % 8 3 - 11 % 09/27/2023 2:18 AM [facility] Neutrophil Absolute 0.04(L) 1.60 - 7.50 x10E9/L 09/27/2023 2:18 AM [facility] Lymphocyte Absolute 0.42(L) 1.00 - 4.40 x10E9/L 09/27/2023 2:18 AM [facility] Monocyte Absolute 0.04(L) 0.15 - 1.00 x10E9/L 09/27/2023 2:18 AM [facility] RBC Morphology NORMAL 09/27/2023 2:18 AM [facility] Blood BLOOD SPECIMEN / Unknown Venipuncture / Unknown 09/27/2023 12:48 AM ARTIST REPRESENTATIVE 09/27/2023 1:04 AM ARTIST REPRESENTATIVE Soraya Malik MD LAB - HEMATOLOG Y ORDERABLES Performing Organization Address City/State/[facility] Co de Phone Number [facility] [address] [place] [phone], [facility] [phone] * (ABNORMAL) CBC W AUTO DIFFERENTIAL (09/27/2023 12:48 AM ARTIST REPRESENTATIVE) WBC 0.5(LL) 4.0 - 10.7 x10E9/L 09/27/2023 2:19 AM [facility] RBC Count 2.29(L) 3.90 - 5.20 x10E12/L 09/27/2023 2:19 AM [facility] Hemoglobin 7.1(L) 11.9 - 15.8 g/dL 09/27/2023 2:19 AM [facility] Hematocrit 19.1(L) 34.8 - 46.1 % 09/27/2023 2:19 AM [facility] MCV 83.4 80.0 - 98.0 fL 09/27/2023 2:19 AM [facility] MCH 31.0 26.7 - 33.6 pg 09/27/2023 2:19 AM [facility] MCHC 37.2(H) 31.7 - 36.3 g/dL 09/27/2023 2:19 AM [facility] RDW-CV 13.4 11.3 - 14.8 % 09/27/2023 2:19 AM [facility] Platelet Count 24(L) 150 - 420 x10E9/L 09/27/2023 2:19 AM [facility] MPV 10.0 7.8 - 11.4 fL 09/27/2023 2:19 AM [facility] Preliminary Absolute Neutrophil 0.04(L) 1.60 - 7.50 x10E9/L 09/27/2023 2:19 AM [facility] Blood BLOOD SPECIMEN / Unknown Venipuncture / Unknown 09/27/2023 12:48 AM ARTIST REPRESENTATIVE 09/27/2023 1:04 AM ARTIST REPRESENTATIVE Soraya Malik MD LAB - HEMATOLOG Y ORDERABLES [address] [address], [facility] [phone] * (ABNORMAL) PHOSPHORUS BLOOD (09/27/2023 12:48 AM ARTIST REPRESENTATIVE) Phosphorus 1.8(L) 2.9 - 5.1 mg/dL 09/27/2023 1:31 AM [facility] Blood BLOOD SPECIMEN / Unknown Venipuncture / Unknown 09/27/2023 12:48 AM ARTIST REPRESENTATIVE 09/27/2023 1:04 AM ARTIST REPRESENTATIVE Soraya Malik MD LAB - CHEMISTRY ORDERABLES Performing Organization Address [facility]/ZIP Co de Phone Number [address] [address], [facility] [phone] * MAGNESIUM BLOOD (09/27/2023 12:48 AM ARTIST REPRESENTATIVE) Magnesium 2.1 1.6 - 2.6 mg/dL 09/27/2023 1:31 AM [facility] Blood BLOOD SPECIMEN / Unknown Venipuncture / Unknown 09/27/2023 12:48 AM ARTIST REPRESENTATIVE 09/27/2023 1:04 AM ARTIST REPRESENTATIVE Soraya Malik MD LAB - CHEMISTRY ORDERABLES Performing Organization Address City/[facility]/ZIP Co de Phone Number [address] [phone] [phone] * (ABNORMAL) COMPREHENSIVE METABOLIC PANEL (09/27/2023 12:48 AM [facility]) BUN <5(L) 7 - 26 mg/dL 09/27/2023 1:31 AM [facility] Creatinine 0.63 0.56 - 0.96 mg/dL 09/27/2023 1:31 AM [facility] Sodium 132(L) 136 - 145 mmol/L 09/27/2023 1:31 AM [facility] Potassium 3.2(L) 3.5 - 4.5 mmol/L 09/27/2023 1:31 AM [facility] Chloride 101 98 - 107 mmol/L 09/27/2023 1:31 AM [facility] CO2 23 22 - 29 mmol/L 09/27/2023 1:31 AM [facility] Glucose 108 70 - 115 mg/dL 09/27/2023 1:31 AM [facility] Calcium 7.7(L) 8.4 - 10.2 mg/dL 09/27/2023 1:31 AM [facility] Protein Total 5.8(L) 6.0 - 8.3 g/dL 09/27/2023 1:31 AM [facility] Albumin 2.0(L) 3.4 - 5.0 g/dL 09/27/2023 1:31 AM [facility] Bilirubin Total 0.7 0.2 - 1.2 mg/dL 09/27/2023 1:31 AM [facility] Alkaline Phosphatase 52 40 - 150 U/L 09/27/2023 1:31 AM [facility] ALT 13 5 - 55 U/L 09/27/2023 1:31 AM [facility] AST 11 5 - 34 U/L 09/27/2023 1:31 AM [facility] Anion Gap 8 6 - 16 09/27/2023 1:31 AM [facility] BUN/Creatinine Ratio <8 7 - 23 09/27/2023 1:31 AM [facility] Osmolality Calculated <272(L) 275 - 295 mOsm/kg 09/27/2023 1:31 AM ARTIST REPRESENTATIVE [facility] Albumin/Globulin Ratio 0.5(L) 1.1 - 2.3 09/27/2023 1:31 AM [facility] eGFR by CKD-EPI >90 >=90 mL/min/1.7 3 m2 09/27/2023 1:31 AM [facility] Blood BLOOD SPECIMEN / Unknown Venipuncture / Unknown 09/27/2023 12:48 AM ARTIST REPRESENTATIVE 09/27/2023 1:04 AM ARTIST REPRESENTATIVE Cheryl Cronin MD LAB - CHEMISTRY JON NAIDU Performing Organization Address City/[facility]/ZIP Co de Phone Number [facility] [address] [place] [address], [place] [phone] * (ABNORMAL) HEMOGLOBIN A1C (09/27/2023 12:48 AM [facility]) Hemoglobin A1c 7.2(H) <=5.6 % 09/27/2023 10:15 AM [facility] Estimated Average Glucose 160 mg/dL 09/27/2023 10:15 AM [facility] Comment: HbA1c Interpretation: Normal : < 5.7% Pre-diabetes: 5.7-6.4% Diabetes: Equal to or greater than 6.5% Test results diagnostic of diabetes should be repeated for confirmation. Treatment target values recommended by ADA and other clinical organizations should be used to evaluate metabolic control in patients. Reference: [place] [employer], Standards of Care in Diabetes -2020 In patients 70 years and older consider HbA1c target range of 7.0-7.5% (Reference: Fede Jimenez et al. JAMDA. 2012) The [employer] assay for the measurement of HbA1c is a National Glycohemoglobin Standardization Program (NGSP) certified method. Blood BLOOD SPECIMEN / Unknown Venipuncture / Unknown 09/27/2023 12:48 AM ARTIST REPRESENTATIVE 09/27/2023 1:04 AM ARTIST REPRESENTATIVE Jair Burgess MD LAB - CHEMISTRY JON NAIDU Performing Organization Address City/[facility]/ZIP Co de Phone Number [facility] [address] [place] [address], [place] [phone] * (ABNORMAL) GLUCOSE - POINT OF CARE (09/26/2023 7:53 PM ARTIST REPRESENTATIVE) Glucose WB/POC 121(H) 70 - 115 mg/dL 09/26/2023 7:57 PM ARTIST REPRESENTATIVE [facility] Specimen Type Cap Fingerstick 2023 7:57 PM ARTIST REPRESENTATIVE [facility] Blood BLOOD SPECIMEN / Unknown 09/26/2023 7:53 PM ARTIST REPRESENTATIVE 09/26/2023 7:57 PM ARTIST REPRESENTATIVE Jair Burgess MD LAB - POINT OF CARE ORDERABLES [address] [address], [place] [phone] * GLUCOSE - POINT OF CARE (09/26/2023 5:24 PM ARTIST REPRESENTATIVE) Glucose WB/POC 111 70 - 115 mg/dL 09/26/2023 5:29 PM ARTIST REPRESENTATIVE [facility] Specimen Type Venous 09/26/2023 5:29 PM ARTIST REPRESENTATIVE [facility] Blood BLOOD SPECIMEN / Unknown 09/26/2023 5:24 PM ARTIST REPRESENTATIVE 09/26/2023 5:29 PM ARTIST REPRESENTATIVE Jair Burgess MD LAB - POINT OF CARE ORDERABLES Performing Organization Address City/[facility]/ZIP Co de Phone Number [address] [address], [place] [phone] * (ABNORMAL) PHOSPHORUS BLOOD (09/26/2023 3:01 PM ARTIST REPRESENTATIVE) Phosphorus 0.8(LL) 2.9 - 5.1 mg/dL 09/26/2023 4:17 PM ARTIST REPRESENTATIVE [facility] Blood BLOOD SPECIMEN / Unknown Venipuncture / Unknown 09/26/2023 3:01 PM ARTIST REPRESENTATIVE 09/26/2023 3:09 PM ARTIST REPRESENTATIVE Jair Burgess MD LAB - CHEMISTRY ORDAzul NAIDU [address] [address], [place] [phone] * (ABNORMAL) BASIC METABOLIC PANEL (CALCIUM TOTAL) (09/26/2023 3:01 PM ARTIST REPRESENTATIVE) Pathologist [facility] BUN <5(L) 7 - 26 mg/dL 09/26/2023 4:14 PM [facility] Creatinine 0.57 0.56 - 0.96 mg/dL 09/26/2023 4:14 PM [facility] Sodium 134(L) 136 - 145 mmol/L 09/26/2023 4:14 PM [facility] Potassium 3.5 3.5 - 4.5 mmol/L 09/26/2023 4:14 PM [facility] Chloride 103 98 - 107 mmol/L 09/26/2023 4:14 PM [facility] CO2 22 22 - 29 mmol/L 09/26/2023 4:14 PM [facility] Glucose 123(H) 70 - 115 mg/dL 09/26/2023 4:14 PM [facility] Calcium 7.7(L) 8.4 - 10.2 mg/dL 09/26/2023 4:14 PM [facility] Anion Gap 9 6 - 16 09/26/2023 4:14 PM [facility] BUN/Creatinine Ratio <9 7 - 23 09/26/2023 4:14 PM [facility] Osmolality Calculated <277 275 - 295 mOsm/kg 09/26/2023 4:14 PM [facility] eGFR by CKD-EPI >90 >=90 mL/min/1.7 3 m2 09/26/2023 4:14 PM [facility] Blood BLOOD SPECIMEN / Unknown Venipuncture / Unknown 09/26/2023 3:01 PM ARTIST REPRESENTATIVE 09/26/2023 3:09 PM ARTIST REPRESENTATIVE Jair Burgess MD LAB - CHEMISTRY JON Alonzo Organization Address City/State/ZIP Co de Phone Number [facility] [address] [place] [address], [facility] [phone] * (ABNORMAL) GLUCOSE - POINT OF CARE (09/26/2023 12:07 PM ARTIST REPRESENTATIVE) Glucose WB/POC 223(H) 70 - 115 mg/dL 09/26/2023 12:11 PM ARTIST REPRESENTATIVE [facility] Specimen Type Venous 09/26/2023 12:11 PM ARTIST REPRESENTATIVE [facility] Blood BLOOD SPECIMEN / Unknown 09/26/2023 12:07 PM ARTIST REPRESENTATIVE 09/26/2023 12:11 PM ARTIST REPRESENTATIVE Jair Burgess MD LAB - POINT OF CARE ORDERABLES [facility] [address] [place] [address], [facility] [phone] * XR CHEST 1VW PORTABLE (09/26/2023 10:16 AM ARTIST REPRESENTATIVE) Anatomical Region Laterality Modality Chest Radiographic Ammy ging 09/26/2023 10:5 8 AM ARTIST REPRESENTATIVE Narrative 09/26/2023 10:59 AM ARTIST REPRESENTATIVE EXAMINATION: XR CHEST 1VW PORTABLE HISTORY: R00.0: Tachycardia R00.0: Sinus tachycardia COMPARISON: Chest regressed dated 09/22/2023 FINDINGS/IMPRESSION: Lines: *A right internal jugular approach central venous catheter terminates over the superior cavoatrial junction. Mild diffuse interstitial prominence may represent pulmonary vascular congestion and/or interstitial pneumonia. No pleural effusion is seen. No pneumothorax is identified. Cardiac size is normal. The superior mediastinal contours are within normal limits. No acute osseous abnormality is identified. No free air is seen under the diaphragm. > Interpreting Provider: LUDIVINA HAYWARD MD on 09/26/2023 10:59 AM Procedure Note Ludivina aHyward MD - 09/26/2023 EXAMINATION: XR CHEST 1VW PORTABLE HISTORY: R00.0: Tachycardia R00.0: Sinus tachycardia COMPARISON: Chest regressed dated 09/22/2023 FINDINGS/IMPRESSION: Lines: *A right internal jugular approach central venous catheter terminatesover the superior cavoatrial junction. Mild diffuse interstitial prominence may represent pulmonary vascular congestion and/or interstitial pneumonia. No pleural effusion is seen.No pneumothorax is identified. Cardiac size is normal. The superior mediastinal contours are within normal limits. No acute osseousabnormality is identified. No free air is seen under the diaphragm. > Interpreting Provider: LUDIVINA HAYWARD MD on 09/26/2023 10:59 AM Jair Burgess MD DIAGNOSTIC IMAGING O RDERABLES * (ABNORMAL) PHOSPHORUS BLOOD (09/26/2023 9:41 AM ARTIST REPRESENTATIVE) Phosphorus 6.6(H) 2.9 - 5.1 mg/dL 09/26/2023 10:13 AM [facility] Blood BLOOD SPECIMEN / Unknown Venipuncture / Unknown 09/26/2023 9:41 AM ARTIST REPRESENTATIVE 09/26/2023 9:41 AM ARTIST REPRESENTATIVE Bernard Mancuso MD LAB - CHEMISTRY JON NAIDU [facility] [address] [place] [address], [facility] [phone] * (ABNORMAL) BASIC METABOLIC PANEL (CALCIUM TOTAL) (09/26/2023 9:41 AM ARTIST REPRESENTATIVE) Pathologist [facility] BUN <5(L) 7 - 26 mg/dL 09/26/2023 10:14 AM [facility] Creatinine 0.62 0.56 - 0.96 mg/dL 09/26/2023 10:14 AM [facility] Sodium 133(L) 136 - 145 mmol/L 09/26/2023 10:14 AM [facility] Potassium 6.0(H) 3.5 - 4.5 mmol/L 09/26/2023 10:14 AM [facility] Chloride 103 98 - 107 mmol/L 09/26/2023 10:14 AM [facility] CO2 22 22 - 29 mmol/L 09/26/2023 10:14 AM [facility] Glucose 199(H) 70 - 115 mg/dL 09/26/2023 10:14 AM [facility] Calcium 7.8(L) 8.4 - 10.2 mg/dL 09/26/2023 10:14 AM [facility] Anion Gap 8 6 - 16 09/26/2023 10:14 AM [facility] BUN/Creatinine Ratio <8 7 - 23 09/26/2023 10:14 AM [facility] Osmolality Calculated <279 275 - 295 mOsm/kg 09/26/2023 10:14 AM [facility] eGFR by CKD-EPI >90 >=90 mL/min/1.7 3 m2 09/26/2023 10:14 AM [facility] Blood BLOOD SPECIMEN / Unknown Venipuncture / Unknown 09/26/2023 9:41 AM ARTIST REPRESENTATIVE 09/26/2023 9:41 AM ARTIST REPRESENTATIVE Bernard Mancuso MD LAB - CHEMISTRY ORDAzul NAIDU Performing Organization Address City/[facility]/ZIP Co de Phone Number [address] [address], [place] [phone] * (ABNORMAL) OSMOLALITY BLOOD (09/26/2023 9:41 AM ARTIST REPRESENTATIVE) Osmolality 274(L) 275 - 295 mOsm/kg 09/26/2023 10:41 AM [facility] Blood BLOOD SPECIMEN / Unknown Venipuncture / Unknown 09/26/2023 9:41 AM ARTIST REPRESENTATIVE 09/26/2023 9:41 AM ARTIST REPRESENTATIVE Bernard Mancuso MD LAB - CHEMISTRY JON NAIDU Performing Organization Address [facility]/ZIP Co de Phone Number [address] [address], [place] [phone] * OSMOLALITY URINE (09/26/2023 9:12 AM ARTIST REPRESENTATIVE) Osmolality Urine 270 50 - 1,200 mOsm/kg 09/26/2023 9:58 AM [facility] Urine URINE SPECIMEN OBTAINED BY CLEAN CATCH PROCEDURE / Unknown Collection / Unknown 09/26/2023 9:12 AM ARTIST REPRESENTATIVE 09/26/2023 9:22 AM ARTIST REPRESENTATIVE Bernard Mancuso MD LAB - URINE CHEMISTR Y ORDERABLES Performing Organization Address City/[facility]/ZIP Co de Phone Number [address] [address], [place] [phone] * SODIUM URINE RANDOM (09/26/2023 9:12 AM ARTIST REPRESENTATIVE) Sodium Urine <20 Not Established mmol/L 09/26/2023 9:35 AM [facility] Urine URINE SPECIMEN OBTAINED BY CLEAN CATCH PROCEDURE / Unknown Collection / Unknown 09/26/2023 9:12 AM ARTIST REPRESENTATIVE 09/26/2023 9:22 AM ARTIST REPRESENTATIVE Bernard Mancuso MD LAB - URINE CHEMISTR Y ORDERABLES [address] [address], [place] [phone] * (ABNORMAL) GLUCOSE - POINT OF CARE (09/26/2023 8:59 AM ARTIST REPRESENTATIVE) Glucose WB/POC 141(H) 70 - 115 mg/dL 09/26/2023 9:04 AM ARTIST REPRESENTATIVE [facility] Specimen Type Venous 09/26/2023 9:04 AM ARTIST REPRESENTATIVE [facility] Blood BLOOD SPECIMEN / Unknown 09/26/2023 8:59 AM ARTIST REPRESENTATIVE 09/26/2023 9:04 AM ARTIST REPRESENTATIVE Jair Burgess MD LAB - POINT OF CARE ORDERABLES Performing Organization Address [facility]/ZIP Co de Phone Number [address] [address], [place] [phone] * (ABNORMAL) URIC ACID BLOOD (09/25/2023 7:54 PM ARTIST REPRESENTATIVE) Uric Acid 1.7(L) 2.6 - 6.0 mg/dL 09/25/2023 10:09 PM ARTIST REPRESENTATIVE [facility] Blood BLOOD SPECIMEN / Unknown Venipuncture / Unknown 09/25/2023 7:54 PM ARTIST REPRESENTATIVE 09/25/2023 8:56 PM ARTIST REPRESENTATIVE Soraya Malik MD LAB - CHEMISTRY ORDERABLES [address] [address], [place] [phone] * (ABNORMAL) CBC W AUTO DIFFERENTIAL (09/25/2023 7:54 PM ARTIST REPRESENTATIVE) WBC 0.2(LL) 4.0 - 10.7 x10E9/L 09/25/2023 11:03 PM [facility] RBC Count 2.39(L) 3.90 - 5.20 x10E12/L 09/25/2023 11:03 PM [facility] Hemoglobin 7.4(L) 11.9 - 15.8 g/dL 09/25/2023 11:03 PM [facility] Hematocrit 19.9(L) 34.8 - 46.1 % 09/25/2023 11:03 PM [facility] MCV 83.3 80.0 - 98.0 fL 09/25/2023 11:03 PM [facility] MCH 31.0 26.7 - 33.6 pg 09/25/2023 11:03 PM [facility] MCHC 37.2(H) 31.7 - 36.3 g/dL 09/25/2023 11:03 PM [facility] RDW-CV 12.9 11.3 - 14.8 % 09/25/2023 11:03 PM [facility] Platelet Count 29(L) 150 - 420 x10E9/L 09/25/2023 11:03 PM [facility] MPV 9.9 7.8 - 11.4 fL 09/25/2023 11:03 PM [facility] Preliminary Absolute Neutrophil 0.00(L) 1.60 - 7.50 x10E9/L 09/25/2023 11:03 PM [facility] Blood BLOOD SPECIMEN / Unknown Venipuncture / Unknown 09/25/2023 7:54 PM ARTIST REPRESENTATIVE 09/25/2023 8:55 PM ARTIST REPRESENTATIVE Soraya Malik MD LAB - HEMATOLOG Y ORDERABLES Performing Organization Address City/State/[facility] Co de Phone Number [facility] [address] [place] [address], [facility] [phone] * (ABNORMAL) PHOSPHORUS BLOOD (09/25/2023 7:54 PM ARTIST REPRESENTATIVE) [facility] Phosphorus 0.9(LL) 2.9 - 5.1 mg/dL 09/25/2023 9:25 PM [facility] Blood BLOOD SPECIMEN / Unknown Venipuncture / Unknown 09/25/2023 7:54 PM ARTIST REPRESENTATIVE 09/25/2023 8:56 PM ARTIST REPRESENTATIVE Soraya Malik MD LAB - CHEMISTRY ORDERABLES [address] [address], [place] [phone] * MAGNESIUM BLOOD (09/25/2023 7:54 PM ARTIST REPRESENTATIVE) [facility] Magnesium 2.0 1.6 - 2.6 mg/dL 09/25/2023 9:24 PM [facility] Blood BLOOD SPECIMEN / Unknown Venipuncture / Unknown 09/25/2023 7:54 PM ARTIST REPRESENTATIVE 09/25/2023 8:56 PM ARTIST REPRESENTATIVE Soraya Malik MD LAB - CHEMISTRY ORDERABLES [address] [address], [place] [phone] * (ABNORMAL) COMPREHENSIVE METABOLIC PANEL (09/25/2023 7:54 PM ARTIST REPRESENTATIVE) [facility] BUN <5(L) 7 - 26 mg/dL 09/25/2023 9:24 PM [facility] Creatinine 0.64 0.56 - 0.96 mg/dL 09/25/2023 9:24 PM [facility] Sodium 128(L) 136 - 145 mmol/L 09/25/2023 9:24 PM [facility] Potassium 3.2(L) 3.5 - 4.5 mmol/L 09/25/2023 9:24 PM [facility] Chloride 101 98 - 107 mmol/L 09/25/2023 9:24 PM [facility] CO2 19(L) 22 - 29 mmol/L 09/25/2023 9:24 PM [facility] Glucose 189(H) 70 - 115 mg/dL 09/25/2023 9:24 PM [facility] Calcium 7.3(L) 8.4 - 10.2 mg/dL 09/25/2023 9:24 PM [facility] Protein Total 6.1 6.0 - 8.3 g/dL 09/25/2023 9:24 PM [facility] Albumin 2.2(L) 3.4 - 5.0 g/dL 09/25/2023 9:24 PM [facility] Bilirubin Total 0.9 0.2 - 1.2 mg/dL 09/25/2023 9:24 PM [facility] Alkaline Phosphatase 45 40 - 150 U/L 09/25/2023 9:24 PM [facility] ALT 14 5 - 55 U/L 09/25/2023 9:24 PM [facility] AST 9 5 - 34 U/L 09/25/2023 9:24 PM [facility] Anion Gap 8 6 - 16 09/25/2023 9:24 PM [facility] BUN/Creatinine Ratio <8 7 - 23 09/25/2023 9:24 PM [facility] Osmolality Calculated <268(L) 275 - 295 mOsm/kg 09/25/2023 9:24 PM [facility] Albumin/Globulin Ratio 0.6(L) 1.1 - 2.3 09/25/2023 9:24 PM [facility] eGFR by CKD-EPI >90 >=90 mL/min/1.7 3 m2 09/25/2023 9:24 PM [facility] Blood BLOOD SPECIMEN / Unknown Venipuncture / Unknown 09/25/2023 7:54 PM ARTIST REPRESENTATIVE 09/25/2023 8:56 PM [facility] Cheryl Cronin MD LAB - CHEMISTRY ORDE ELYSIA [facility] Organization Address City/State/ZIP Co de Phone Number [facility] [address] [place] [address], [facility] [phone] * TRANSFUSE PLATELET PHERESIS UNIT(S) (09/25/2023 5:23 PM ARTIST REPRESENTATIVE) Jair Burgess MD NURSING - BLOOD PROD TRANSFUSION * TRANSFUSE PLATELET PHERESIS UNIT(S), 1 Units (09/25/2023 5:23 PM ARTIST REPRESENTATIVE) Jair Burgess MD NURSING - BLOOD PROD TRANSFUSION * PREPARE PLATELET PHERESIS UNIT(S), 1 Units (09/25/2023 4:12 PM ARTIST REPRESENTATIVE) Pathologist [facility] Unit Description LRPLTphere B7 IR [facility] BLOOD [facility] LAB Unit ABO B [facility] Unit Rh POS [facility] Product Number P31 [facility] B LOOD [facility]ANK LAB Unit Donor # [id number] [facility] Unit Status transfused [facility] BLO OD BANK LAB Product Code [id number] [facility] BLO OD BANK LAB Blood Type Barcode 7300 [facility] Expiration Date [id number] S BLOOD BANK LAB Blood Bank BLOOD SPECIMEN / Unknown 09/25/2023 1:49 AM ARTIST REPRESENTATIVE Jair Burgess MD LAB - BLOOD BANK ORD ERABLES [facility] [address] [place] [address], [facility] [phone] * (ABNORMAL) CBC W/O DIFFERENTIAL (09/25/2023 2:33 PM ARTIST REPRESENTATIVE) [facility] WBC 0.2(LL) 4.0 - 10.7 x10E9/L 09/25/2023 3:19 PM [facility] RBC Count 2.70(L) 3.90 - 5.20 x10E12/L 09/25/2023 3:19 PM [facility] Hemoglobin 8.2(L) 11.9 - 15.8 g/dL 09/25/2023 3:19 PM [facility] Hematocrit 22.4(L) 34.8 - 46.1 % 09/25/2023 3:19 PM [facility] MCV 83.0 80.0 - 98.0 fL 09/25/2023 3:19 PM [facility] MCH 30.4 26.7 - 33.6 pg 09/25/2023 3:19 PM [facility] MCHC 36.6(H) 31.7 - 36.3 g/dL 09/25/2023 3:19 PM [facility] RDW-CV 13.0 11.3 - 14.8 % 09/25/2023 3:19 PM [facility] Platelet Count 6(LL) 150 - 420 x10E9/L 09/25/2023 3:19 PM [facility] MPV 7.7(L) 7.8 - 11.4 fL 09/25/2023 3:19 PM [facility] Blood BLOOD SPECIMEN / Unknown Venipuncture / Unknown 09/25/2023 2:33 PM ARTIST REPRESENTATIVE 09/25/2023 2:44 PM ARTIST REPRESENTATIVE Jair Burgess MD LAB - HEMATOLOGY ORD ERABLES Performing Organization Address City/[facility]/ZIP Co de Phone Number [address] [address], [place] [phone] * TROPONIN-I HIGH SENSITIVE (09/25/2023 2:33 PM ARTIST REPRESENTATIVE) Troponin I High Sensitive 9 <=14 ng/L 09/25/2023 3:17 PM [facility] Blood BLOOD SPECIMEN / Unknown Venipuncture / Unknown 09/25/2023 2:33 PM ARTIST REPRESENTATIVE 09/25/2023 2:44 PM ARTIST REPRESENTATIVE Jair Burgess MD LAB - CHEMISTRY ORDE RABLES [address] [address], [place] [phone] * B-TYPE NATRIURETIC PEPTIDE (09/25/2023 2:33 PM ARTIST REPRESENTATIVE) BNP 87 <100 pg/mL 09/25/2023 3:17 PM [facility] Comment: A decision threshold of 100 [...] Unknown Venipuncture / Unknown 09/25/2023 2:33 PM ARTIST REPRESENTATIVE 09/25/2023 2:44 PM ARTIST REPRESENTATIVE Jair Burgess MD LAB - CHEMISTRY JON NAIDU Performing Organization Address [facility]/State/[facility] Co de Phone Number [facility] [address] [place] [address], [place] [phone] * (ABNORMAL) BASIC METABOLIC PANEL (CALCIUM TOTAL) (09/25/2023 2:04 PM ARTIST REPRESENTATIVE) BUN 5(L) 7 - 26 mg/dL 09/25/2023 2:35 PM [facility] Creatinine 0.70 0.56 - 0.96 mg/dL 09/25/2023 2:35 PM [facility] Sodium 129(L) 136 - 145 mmol/L 09/25/2023 2:35 PM [facility] Potassium 3.5 3.5 - 4.5 mmol/L 09/25/2023 2:35 PM [facility] Chloride 99 98 - 107 mmol/L 09/25/2023 2:35 PM [facility] CO2 19(L) 22 - 29 mmol/L 09/25/2023 2:35 PM [facility] Glucose 158(H) 70 - 115 mg/dL 09/25/2023 2:35 PM [facility] Calcium 7.8(L) 8.4 - 10.2 mg/dL 09/25/2023 2:35 PM [facility] Anion Gap 11 6 - 16 09/25/2023 2:35 PM [facility] BUN/Creatinine Ratio 7 7 - 23 09/25/2023 2:35 PM [facility] Osmolality Calculated 269(L) 275 - 295 mOsm/kg 09/25/2023 2:35 PM [facility] eGFR by CKD-EPI >90 >=90 mL/min/1.7 3 m2 09/25/2023 2:35 PM [facility] Blood BLOOD SPECIMEN / Unknown Venipuncture / Unknown 09/25/2023 2:04 PM ARTIST REPRESENTATIVE 09/25/2023 2:08 PM [facility] Jair Burgess MD LAB - CHEMISTRY JON NAIDU [facility] [address] [place] [address], [facility] [phone] * EKG 12-LEAD (09/25/2023 10:14 AM [facility]) Ventricular Rate 139 BPM [facility] MUSE Atrial Rate 139 BPM [facility] P-R Interval 128 ms [facility] QRS Duration ms 70 ms [facility] Q-T Interval ms 266 ms [facility] QTC Calculation (Bezet) 404 ms [facility] MUSE Calculated P [place] 41 degrees [facility] MUSE Calculated R [place] 22 degrees [facility] MUSE Calculated T [place] 19 degrees [facility] Interpretation EKG SINUS TACHYCARDIA NONSPECIFIC T WAVE ABNORMALITY ABNORMAL ECG WHEN COMPARED WITH ECG OF 19-SEP-2023 14:40, VENT. RATE HAS INCREASED BY 21 BPM Confirmed by ALFREDITO LOAIZA MD ([id number]) on 09/25/2023 1:00:49 PM [facility] MUSE 09/25/2023 10:1 4 AM ARTIST REPRESENTATIVE 09/25/2023 1:00 PM ARTIST REPRESENTATIVE Jair Burgess MD ECG ORDERABLES Performing Organization Address City/[facility]/ZIP Co de Phone Number [facility] MUSE * PREPARE (CROSSMATCH) RBC UNIT(S), 1 Units (09/25/2023 2:31 AM ARTIST REPRESENTATIVE) Unit Description AS1 LR PRBC IRR [facility] BLOOD [facility]ANK LAB Unit ABO O [facility]OD [facility] Unit Rh POS [facility]OD [facility] Product Number R04 [facility] B LOOD BANK LAB Unit Donor # [id number] [facility]OD [facility] Unit Status transfused [facility] BLO [facility] Product Code [id number] [facility] BLO OD BANK LAB Blood Type Barcode 5100 [facility] B[facility] LAB Expiration Date [id number] S BLOOD BANK LAB Blood Bank BLOOD SPECIMEN / Unknown 09/25/2023 1:49 AM ARTIST REPRESENTATIVE Genny Leigh MD LAB - BLOOD BANK ORD ERABLES [facility]LOOD [facility] LAB [address] [place] [address], [facility] [phone] * TYPE + SCREEN PANEL (09/25/2023 1:30 AM ARTIST REPRESENTATIVE) Antibody Screen NEG 2:25 AM ARTIST REPRESENTATIVE [facility] B[facility]OD [facility] LAB ABO Rh O POS 09/25/2023 2:25 AM ARTIST REPRESENTATIVE [facility] BLOOD [facility] LAB Blood Bank BLOOD SPECIMEN / Unknown Venipuncture / Unknown 09/25/2023 1:30 AM ARTIST REPRESENTATIVE 09/25/2023 1:49 AM ARTIST REPRESENTATIVE Soraya Malik MD LAB - BLOOD BAN K ORDERABLES [facility] [address] [place] [address], [facility] [phone] * (ABNORMAL) BLOOD GASES ART + COOX PANEL (09/25/2023 12:14 AM ARTIST REPRESENTATIVE) pH Arterial 7.45 7.35 - 7.45 pH 09/25/2023 12:28 AM [facility] pO2 Arterial 94 80 - 100 mmHg 09/25/2023 12:28 AM [facility] pCO2 Arterial 25(L) 35 - 45 mmHg 12:28 AM [facility] HCO3 Arterial 17.4(L) 20.0 - 30.0 mmol/L 09/25/2023 12:28 AM [facility] BE Arterial -6.0(L) -2.0 - 2.0 mmol/L 09/25/2023 12:28 AM [facility] Oxyhemoglobin Arterial 97.6 % 09/25/2023 12:28 AM [facility] Dexoyhemoglobin (HHB) % <1.0 % 09/25/2023 12:28 AM [facility] Methemoglobin <0.8 0.0 - 2.0 % 09/25/2023 12:28 AM [facility] Carboxyhemoglobin 2.0 0.0 - 2.0 % 2023 12:28 AM [facility] O2 Content Arterial 8.6 Interpret within clinical context ml/dL 09/25/2023 12:28 AM [facility] Hemoglobin by COOX 6.1(L) 12.0 - 15.6 g/dL 09/25/2023 12:28 AM [facility] O2 Saturation Arterial 100 90 - 100 % 09/25/2023 12:28 AM [facility] FI O2 Arterial 21.0 % 09/25/2023 12:28 AM [facility] Blood, arterial ARTERIAL BLOOD SPECIMEN / Unknown Arterial Puncture / Unknown 09/25/2023 12:14 AM ARTIST REPRESENTATIVE 09/25/2023 12:25 AM ARTIST REPRESENTATIVE Narrative [facility] - 09/25/2023 12:28 AM ARTIST REPRESENTATIVE Carboxyhemoglobin Normal Concentration: Non-smokers: 0-2%; Smokers: 0-9%; Toxic: >20% Genny Leigh MD LAB - BLOOD GASES OR DERABLES Performing Organization Address [facility]/ZIP Co de Phone Number [address] [address], [facility] [phone] * (ABNORMAL) URIC ACID BLOOD (09/24/2023 8:06 PM ARTIST REPRESENTATIVE) [facility] Uric Acid 2.1(L) 2.6 - 6.0 mg/dL 09/24/2023 10:21 PM [facility] Blood BLOOD SPECIMEN / Unknown Venipuncture / Unknown 09/24/2023 8:06 PM ARTIST REPRESENTATIVE 09/24/2023 8:26 PM ARTIST REPRESENTATIVE Soraya Malik MD LAB - CHEMISTRY ORDERABLES Performing Organization Address [facility] Co de Phone Number [address] [phone], [facility] [phone] * (ABNORMAL) CBC W AUTO DIFFERENTIAL (09/24/2023 8:06 PM ARTIST REPRESENTATIVE) [facility] WBC 0.4(LL) 4.0 - 10.7 x10E9/L 09/24/2023 11:52 PM [facility] RBC Count 2.55(L) 3.90 - 5.20 x10E12/L 09/24/2023 11:52 PM [facility] Hemoglobin 7.9(L) 11.9 - 15.8 g/dL 09/24/2023 11:52 PM [facility] Hematocrit 21.4(L) 34.8 - 46.1 % 09/24/2023 11:52 PM [facility] MCV 83.9 80.0 - 98.0 fL 09/24/2023 11:52 PM [facility] MCH 31.0 26.7 - 33.6 pg 09/24/2023 11:52 PM [facility] MCHC 36.9(H) 31.7 - 36.3 g/dL 09/24/2023 11:52 PM [facility] RDW-CV 12.4 11.3 - 14.8 % 09/24/2023 11:52 PM [facility] Platelet Count 15(LL) 150 - 420 x10E9/L 09/24/2023 11:52 PM [facility] MPV 9.0 7.8 - 11.4 fL 09/24/2023 11:52 PM [facility] Preliminary Absolute Neutrophil 0.01(L) 1.60 - 7.50 x10E9/L 09/24/2023 11:52 PM [facility] Blood BLOOD SPECIMEN / Unknown Venipuncture / Unknown 09/24/2023 8:06 PM ARTIST REPRESENTATIVE 09/24/2023 8:26 PM ARTIST REPRESENTATIVE Soraya Malik MD LAB - HEMATOLOG Y ORDERABLES [address] [address], [facility] [phone] * (ABNORMAL) PHOSPHORUS BLOOD (09/24/2023 8:06 PM ARTIST REPRESENTATIVE) Phosphorus 0.9(LL) 2.9 - 5.1 mg/dL 09/24/2023 9:13 PM [facility] Blood BLOOD SPECIMEN / Unknown Venipuncture / Unknown 09/24/2023 8:06 PM ARTIST REPRESENTATIVE 09/24/2023 8:26 PM ARTIST REPRESENTATIVE Soraya Malik MD LAB - CHEMISTRY ORDERABLES [address] [address], [place] [phone] * (ABNORMAL) MAGNESIUM BLOOD (09/24/2023 8:06 PM ARTIST REPRESENTATIVE) Magnesium 1.4(L) 1.6 - 2.6 mg/dL 09/24/2023 9:13 PM [facility] Blood BLOOD SPECIMEN / Unknown Venipuncture / Unknown 09/24/2023 8:06 PM ARTIST REPRESENTATIVE 09/24/2023 8:26 PM ARTIST REPRESENTATIVE Soraya Malik MD LAB - CHEMISTRY ORDERABLES [facility] [address] [place] [address], [facility] [phone] * (ABNORMAL) COMPREHENSIVE METABOLIC PANEL (09/24/2023 8:06 PM ARTIST REPRESENTATIVE) Pathologist [facility] BUN 8 7 - 26 mg/dL 09/24/2023 9:13 PM [facility] Creatinine 0.76 0.56 - 0.96 mg/dL 09/24/2023 9:13 PM [facility] Sodium 127(L) 136 - 145 mmol/L 09/24/2023 9:13 PM [facility] Potassium 3.7 3.5 - 4.5 mmol/L 09/24/2023 9:13 PM [facility] Chloride 103 98 - 107 mmol/L 09/24/2023 9:13 PM [facility] CO2 18(L) 22 - 29 mmol/L 09/24/2023 9:13 PM [facility] Glucose 146(H) 70 - 115 mg/dL 09/24/2023 9:13 PM [facility] Calcium 8.5 8.4 - 10.2 mg/dL 09/24/2023 9:13 PM [facility] Protein Total 6.9 6.0 - 8.3 g/dL 09/24/2023 9:13 PM [facility] Albumin 2.5(L) 3.4 - 5.0 g/dL 09/24/2023 9:13 PM [facility] Bilirubin Total 0.7 0.2 - 1.2 mg/dL 09/24/2023 9:13 PM [facility] Alkaline Phosphatase 60 40 - 150 U/L 09/24/2023 9:13 PM [facility] ALT 18 5 - 55 U/L 09/24/2023 9:13 PM [facility] AST 8 5 - 34 U/L 09/24/2023 9:13 PM [facility] Anion Gap 6 6 - 16 09/24/2023 9:13 PM [facility] BUN/Creatinine Ratio 11 7 - 23 09/24/2023 9:13 PM [facility] Osmolality Calculated 265(L) 275 - 295 mOsm/kg 09/24/2023 9:13 PM [facility] Albumin/Globulin Ratio 0.6(L) 1.1 - 2.3 09/24/2023 9:13 PM [facility] eGFR by CKD-EPI >90 >=90 mL/min/1.7 3 m2 09/24/2023 9:13 PM [facility] Blood BLOOD SPECIMEN / Unknown Venipuncture / Unknown 09/24/2023 8:06 PM ARTIST REPRESENTATIVE 09/24/2023 8:26 PM ARTIST REPRESENTATIVE Cheryl Cronin MD LAB - CHEMISTRY ORDE ELYSIA Performing Organization Address City/[facility]/ZIP Co de Phone Number [address] [address], [facility] [phone] * URIC ACID BLOOD (09/24/2023 1:08 AM ARTIST REPRESENTATIVE) Uric Acid 2.6 2.6 - 6.0 mg/dL 09/24/2023 1:50 AM [facility] Blood BLOOD SPECIMEN / Unknown Line Draw / Unknown 09/24/2023 1:08 AM ARTIST REPRESENTATIVE 09/24/2023 1:19 AM ARTIST REPRESENTATIVE Soraya Malik MD LAB - CHEMISTRY ORDERABLES [address] [address], [facility] [phone] * (ABNORMAL) CBC W AUTO DIFFERENTIAL (09/24/2023 1:08 AM ARTIST REPRESENTATIVE) WBC 0.3(LL) 4.0 - 10.7 x10E9/L 09/24/2023 6:45 AM [facility] RBC Count 2.38(L) 3.90 - 5.20 x10E12/L 09/24/2023 6:45 AM [facility] Hemoglobin 7.4(L) 11.9 - 15.8 g/dL 09/24/2023 6:45 AM [facility] Hematocrit 19.8(L) 34.8 - 46.1 % 09/24/2023 6:45 AM [facility] MCV 83.2 80.0 - 98.0 fL 09/24/2023 6:45 AM [facility] MCH 31.1 26.7 - 33.6 pg 09/24/2023 6:45 AM [facility] MCHC 37.4(H) 31.7 - 36.3 g/dL 09/24/2023 6:45 AM [facility] RDW-CV 12.3 11.3 - 14.8 % 09/24/2023 6:45 AM [facility] Platelet Count 18(LL) 150 - 420 x10E9/L 09/24/2023 6:45 AM [facility] MPV 10.4 7.8 - 11.4 fL 09/24/2023 6:45 AM [facility] Preliminary Absolute Neutrophil 0.01(L) 1.60 - 7.50 x10E9/L 09/24/2023 6:45 AM [facility] Blood BLOOD SPECIMEN / Unknown Line Draw / Unknown 09/24/2023 1:08 AM ARTIST REPRESENTATIVE 09/24/2023 1:19 AM [facility] Soraya Malik MD LAB - HEMATOLOG Y ORDERABLES [facility] [address] [place] [phone], [facility] [phone] * (ABNORMAL) PHOSPHORUS BLOOD (09/24/2023 1:08 AM [facility]) Phosphorus 1.6(L) 2.9 - 5.1 mg/dL 09/24/2023 1:50 AM [facility] Blood BLOOD SPECIMEN / Unknown Line Draw / Unknown 09/24/2023 1:08 AM ARTIST REPRESENTATIVE 09/24/2023 1:19 AM ARTIST REPRESENTATIVE Soraya Malik MD LAB - CHEMISTRY ORDERABLES Performing Organization Address [facility]/ZIP Co de Phone Number [address] [address], [facility] [phone] * MAGNESIUM BLOOD (09/24/2023 1:08 AM ARTIST REPRESENTATIVE) Magnesium 1.7 1.6 - 2.6 mg/dL 09/24/2023 1:50 AM [facility] Blood BLOOD SPECIMEN / Unknown Line Draw / Unknown 09/24/2023 1:08 AM ARTIST REPRESENTATIVE 09/24/2023 1:19 AM ARTIST REPRESENTATIVE Soraya Malik MD LAB - CHEMISTRY ORDERABLES Performing Organization Address [facility]/ZIP Co de Phone Number [address] [address], [facility] [phone] * (ABNORMAL) COMPREHENSIVE METABOLIC PANEL (09/24/2023 1:08 AM ARTIST REPRESENTATIVE) BUN 5(L) 7 - 26 mg/dL 09/24/2023 1:50 AM [facility] Creatinine 0.69 0.56 - 0.96 mg/dL 09/24/2023 1:50 AM [facility] Sodium 133(L) 136 - 145 mmol/L 09/24/2023 1:50 AM [facility] Potassium 3.1(L) 3.5 - 4.5 mmol/L 09/24/2023 1:50 AM [facility] Chloride 103 98 - 107 mmol/L 09/24/2023 1:50 AM [facility] CO2 22 22 - 29 mmol/L 09/24/2023 1:50 AM [facility] Glucose 134(H) 70 - 115 mg/dL 09/24/2023 1:50 AM [facility] Calcium 8.5 8.4 - 10.2 mg/dL 09/24/2023 1:50 AM [facility] Protein Total 6.3 6.0 - 8.3 g/dL 09/24/2023 1:50 AM [facility] Albumin 2.5(L) 3.4 - 5.0 g/dL 09/24/2023 1:50 AM [facility] Bilirubin Total 0.5 0.2 - 1.2 mg/dL 09/24/2023 1:50 AM [facility] Alkaline Phosphatase 65 40 - 150 U/L 09/24/2023 1:50 AM [facility] ALT 18 5 - 55 U/L 09/24/2023 1:50 AM [facility] AST 6 5 - 34 U/L 09/24/2023 1:50 AM [facility] Anion Gap 8 6 - 16 09/24/2023 1:50 AM [facility] BUN/Creatinine Ratio 7 7 - 23 09/24/2023 1:50 AM [facility] Osmolality Calculated 275 275 - 295 mOsm/kg 09/24/2023 1:50 AM [facility] Albumin/Globulin Ratio 0.7(L) 1.1 - 2.3 09/24/2023 1:50 AM [facility] eGFR by CKD-EPI >90 >=90 mL/min/1.7 3 m2 09/24/2023 1:50 AM [facility] Blood BLOOD SPECIMEN / Unknown Line Draw / Unknown 09/24/2023 1:08 AM ARTIST REPRESENTATIVE 09/24/2023 1:19 AM [facility] Cheryl Cronin MD LAB - CHEMISTRY MANJULAE ELYSIA [facility] [address] [place] [address], [facility] [phone] * (ABNORMAL) CBC W AUTO DIFFERENTIAL (09/23/2023 2:06 PM [facility]) WBC 0.2(LL) 4.0 - 10.7 x10E9/L 09/23/2023 3:00 PM [facility] RBC Count 2.36(L) 3.90 - 5.20 x10E12/L 09/23/2023 3:00 PM [facility] Hemoglobin 7.2(L) 11.9 - 15.8 g/dL 09/23/2023 3:00 PM [facility] Hematocrit 19.6(L) 34.8 - 46.1 % 09/23/2023 3:00 PM [facility] MCV 83.1 80.0 - 98.0 fL 09/23/2023 3:00 PM [facility] MCH 30.5 26.7 - 33.6 pg 09/23/2023 3:00 PM [facility] MCHC 36.7(H) 31.7 - 36.3 g/dL 09/23/2023 3:00 PM [facility] RDW-CV 12.2 11.3 - 14.8 % 09/23/2023 3:00 PM [facility] Platelet Count 18(LL) 150 - 420 x10E9/L 09/23/2023 3:00 PM [facility] MPV 9.2 7.8 - 11.4 fL 09/23/2023 3:00 PM [facility] Blood BLOOD SPECIMEN / Unknown Venipuncture / Unknown 09/23/2023 2:06 PM ARTIST REPRESENTATIVE 09/23/2023 2:14 PM ARTIST REPRESENTATIVE Soraya Malik MD LAB - HEMATOLOG Y ORDERABLES Performing Organization Address City/State/[facility] Co de Phone Number [address] [address], [facility] [phone] * PREPARE PLATELET PHERESIS UNIT(S), 1 Units (09/23/2023 7:00 AM ARTIST REPRESENTATIVE) Unit Description LRPLTphere B7 IR [facility] Unit ABO O [facility] Unit Rh NEG [facility] Product Number P31 [facility] Unit Donor # [id number] [facility] Unit Status transfused [facility] Product Code [id number] [facility] Blood Type Barcode 2110 [facility] Expiration Date S BLOOD BANK LAB Blood Bank BLOOD SPECIMEN / Unknown 09/21/2023 8:35 PM ARTIST REPRESENTATIVE Genny Leigh MD LAB - BLOOD BANK ORD ERABLES Performing Organization Address [facility]/ZIP Co de Phone Number [facility] [address] [place] [address], [place] [phone] * (ABNORMAL) GLUCOSE - POINT OF CARE (09/23/2023 5:07 AM ARTIST REPRESENTATIVE) Pathologist [facility] Glucose WB/POC 130(H) 70 - 115 mg/dL 09/23/2023 7:16 AM ARTIST REPRESENTATIVE [facility] Specimen Type Cap Fingerstick 2023 7:16 AM ARTIST REPRESENTATIVE [facility] Blood BLOOD SPECIMEN / Unknown 09/23/2023 5:07 AM ARTIST REPRESENTATIVE 09/23/2023 7:16 AM ARTIST REPRESENTATIVE Soraya Malik MD LAB - POINT OF CARE ORDERABLES Performing Organization Address [facility]/ZIP Co de Phone Number [address] [address], [place] [phone] * URIC ACID BLOOD (09/23/2023 2:09 AM ARTIST REPRESENTATIVE) [facility] Uric Acid 2.7 2.6 - 6.0 mg/dL 09/23/2023 2:51 AM ARTIST REPRESENTATIVE [facility] Blood BLOOD SPECIMEN / Unknown Line Draw / Unknown 09/23/2023 2:09 AM ARTIST REPRESENTATIVE 09/23/2023 2:24 AM ARTIST REPRESENTATIVE Soraya Malik MD LAB - CHEMISTRY ORDERABLES Performing Organization Address [facility]/ZIP Co de Phone Number [address] [address], [place] [phone] * (ABNORMAL) CBC W AUTO DIFFERENTIAL (09/23/2023 2:09 AM ARTIST REPRESENTATIVE) [facility] WBC 0.2(LL) 4.0 - 10.7 x10E9/L 09/23/2023 3:06 AM [facility] RBC Count 2.43(L) 3.90 - 5.20 x10E12/L 09/23/2023 3:06 AM [facility] Hemoglobin 7.6(L) 11.9 - 15.8 g/dL 09/23/2023 3:06 AM [facility] Hematocrit 20.3(L) 34.8 - 46.1 % 09/23/2023 3:06 AM [facility] MCV 83.5 80.0 - 98.0 fL 09/23/2023 3:06 AM [facility] MCH 31.3 26.7 - 33.6 pg 09/23/2023 3:06 AM [facility] MCHC 37.4(H) 31.7 - 36.3 g/dL 09/23/2023 3:06 AM [facility] RDW-CV 12.1 11.3 - 14.8 % 09/23/2023 3:06 AM [facility] Platelet Count 8(LL) 150 - 420 x10E9/L 09/23/2023 3:06 AM [facility] MPV 11.1 7.8 - 11.4 fL 09/23/2023 3:06 AM [facility] Preliminary Absolute Neutrophil 0.00(L) 1.60 - 7.50 x10E9/L 09/23/2023 3:06 AM [facility] Blood BLOOD SPECIMEN / Unknown Line Draw / Unknown 09/23/2023 2:09 AM ARTIST REPRESENTATIVE 09/23/2023 2:24 AM [facility] Soraya Malki MD LAB - HEMATOLOG Y ORDERABLES [address] [address] [phone] * VANCOMYCIN LEVEL TROUGH (09/23/2023 2:09 AM [facility]) Pathologist [facility] Vancomycin Trough 11.0 10.0 - 20.0 ug/mL 09/23/2023 2:49 AM [facility] Blood BLOOD SPECIMEN / Unknown Line Draw / Unknown 09/23/2023 2:09 AM ARTIST REPRESENTATIVE 09/23/2023 2:23 AM ARTIST REPRESENTATIVE Narrative [facility] - 09/23/2023 2:49 AM ARTIST REPRESENTATIVE See institution protocol. Soraya Malik MD LAB - CHEMISTRY ORDERABLES [address] [address], [facility] [phone] * (ABNORMAL) GLUCOSE - POINT OF CARE (09/22/2023 11:29 PM ARTIST REPRESENTATIVE) Glucose WB/POC 124(H) 70 - 115 mg/dL 09/22/2023 11:34 PM ARTIST REPRESENTATIVE [facility] Specimen Type Cap Fingerstick 2023 11:34 PM ARTIST REPRESENTATIVE [facility] Blood BLOOD SPECIMEN / Unknown 09/22/2023 11:29 PM ARTIST REPRESENTATIVE 09/22/2023 11:34 PM ARTIST REPRESENTATIVE Soraya Malik MD LAB - POINT OF CARE ORDERABLES Performing Organization Address City/[facility]/ZIP Co de Phone Number [address] [address], [place] [phone] * VANCOMYCIN LEVEL PEAK (09/22/2023 10:21 PM ARTIST REPRESENTATIVE) Vancomycin Peak 28.4 25.0 - 40.0 ug/mL 09/22/2023 10:58 PM ARTIST REPRESENTATIVE [facility] Blood BLOOD SPECIMEN / Unknown Line Draw / Unknown 09/22/2023 10:21 PM ARTIST REPRESENTATIVE 09/22/2023 10:28 PM ARTIST REPRESENTATIVE Narrative [facility] - 09/22/2023 10:58 PM ARTIST REPRESENTATIVE See institution protocol. Data does not support the use of vancomycin peak concentration for efficacy. Soraya Malik MD LAB - CHEMISTRY ORDERABLES [address] [address], [place] [phone] * (ABNORMAL) PHOSPHORUS BLOOD (09/22/2023 10:21 PM ARTIST REPRESENTATIVE) Pathologist [facility] Phosphorus 1.2(L) 2.9 - 5.1 mg/dL 09/22/2023 11:23 PM [facility] Blood BLOOD SPECIMEN / Unknown Line Draw / Unknown 09/22/2023 10:21 PM ARTIST REPRESENTATIVE 09/22/2023 10:32 PM ARTIST REPRESENTATIVE Soraya Malik MD LAB - CHEMISTRY ORDERABLES [address] [address], [facility] [phone] * MAGNESIUM BLOOD (09/22/2023 10:21 PM ARTIST REPRESENTATIVE) [facility] Magnesium 1.6 1.6 - 2.6 mg/dL 09/22/2023 10:57 PM [facility] Blood BLOOD SPECIMEN / Unknown Line Draw / Unknown 09/22/2023 10:21 PM ARTIST REPRESENTATIVE 09/22/2023 10:32 PM ARTIST REPRESENTATIVE Soraya Malik MD LAB - CHEMISTRY ORDERABLES [address] [address], [facility] [phone] * (ABNORMAL) COMPREHENSIVE METABOLIC PANEL (09/22/2023 10:21 PM ARTIST REPRESENTATIVE) Pathologist [facility] BUN 5(L) 7 - 26 mg/dL 09/22/2023 10:57 PM [facility] Creatinine 0.66 0.56 - 0.96 mg/dL 09/22/2023 10:57 PM [facility] Sodium 132(L) 136 - 145 mmol/L 09/22/2023 10:57 PM [facility] Potassium 3.8 3.5 - 4.5 mmol/L 09/22/2023 10:57 PM [facility] Chloride 105 98 - 107 mmol/L 09/22/2023 10:57 PM [facility] CO2 20(L) 22 - 29 mmol/L 09/22/2023 10:57 PM [facility] Glucose 142(H) 70 - 115 mg/dL 09/22/2023 10:57 PM [facility] Calcium 8.6 8.4 - 10.2 mg/dL 09/22/2023 10:57 PM [facility] Protein Total 6.3 6.0 - 8.3 g/dL 09/22/2023 10:57 PM [facility] Albumin 2.6(L) 3.4 - 5.0 g/dL 09/22/2023 10:57 PM [facility] Bilirubin Total 0.6 0.2 - 1.2 mg/dL 09/22/2023 10:57 PM [facility] Alkaline Phosphatase 62 40 - 150 U/L 09/22/2023 10:57 PM [facility] ALT 27 5 - 55 U/L 09/22/2023 10:57 PM [facility] AST 8 5 - 34 U/L 09/22/2023 10:57 PM [facility] Anion Gap 7 6 - 16 09/22/2023 10:57 PM [facility] BUN/Creatinine Ratio 8 7 - 23 09/22/2023 10:57 PM [facility] Osmolality Calculated 274(L) 275 - 295 mOsm/kg 09/22/2023 10:57 PM [facility] Albumin/Globulin Ratio 0.7(L) 1.1 - 2.3 09/22/2023 10:57 PM [facility] eGFR by CKD-EPI >90 >=90 mL/min/1.7 3 m2 09/22/2023 10:57 PM [facility] Blood BLOOD SPECIMEN / Unknown Line Draw / Unknown 09/22/2023 10:21 PM ARTIST REPRESENTATIVE 09/22/2023 10:32 PM [facility] Cheryl Cronin MD LAB - CHEMISTRY JON NAIDU [facility] [address] [place] [address], [facility] [phone] * CT ANGIO CHEST PULM EMBOLISM (09/22/2023 8:14 PM ARTIST REPRESENTATIVE) Anatomical Region Laterality Modality Chest Computed Tomogra phy 09/22/2023 8:17 PM ARTIST REPRESENTATIVE Impressions 09/23/2023 10:22 AM ARTIST REPRESENTATIVE Impression: 1.Suboptimal evaluation of the pulmonary arteries [...] 09/23/2023. > Dictated by Kaye Teresa DO (assistant professor of radiology). I, LUDIVINA HAYWARD MD have personally reviewed and interpreted this examination/study. > Interpreting Provider: LUDIVINA HAYWARD MD on 09/23/2023 10:22 AM Narrative 09/23/2023 10:22 AM ARTIST REPRESENTATIVE PROCEDURE: ??CT ANGIO CHEST PULM EMBOLISM, DATE/TIME OF EXAM: ??09/22/2023 8:16 PM, LOCATION ??[facility] INDICATION: R00.0: Tachycardia ADDITIONAL CLINICAL INFORMATION: Ordering [...] EMBOLISM, DATE/TIME OF EXAM: 48:16 PM, LOCATION [facility] INDICATION: R00.0: Tachycardia ADDITIONAL CLINICAL INFORMATION: Ordering [...] at 1019 on 09/23/2023. > Dictated by Nathaneal Herndier, DO (assistant professor of radiology). I, LUDIVINA HAYWARD MD have personally reviewed and interpreted this examination/study. > Interpreting Provider: LUDIVINA HAYWARD MD on 09/23/2023 10:22 AM Soraya Malik MD CT ORDERABLES * (ABNORMAL) GLUCOSE - POINT OF CARE (09/22/2023 7:51 PM ARTIST REPRESENTATIVE) Glucose WB/POC 118(H) 70 - 115 mg/dL 09/22/2023 7:52 PM ARTIST REPRESENTATIVE [facility] Specimen Type Cap Fingerstick 2023 7:52 PM ARTIST REPRESENTATIVE [facility] Blood BLOOD SPECIMEN / Unknown 09/22/2023 7:51 PM ARTIST REPRESENTATIVE 09/22/2023 7:52 PM ARTIST REPRESENTATIVE Soraya Malik MD LAB - POINT OF CARE ORDERABLES [facility] [address] [place] [address], [facility] [phone] * CULTURE BLOOD (09/22/2023 6:24 PM ARTIST REPRESENTATIVE) Culture No growth day 5 DAVID 09/27/2023 11:30 PM ARTIST REPRESENTATIVE [facility] Blood PERIPHERAL BLOOD / Unknown Venipuncture / Unknown 09/22/2023 6:24 PM ARTIST REPRESENTATIVE 09/22/2023 6:32 PM ARTIST REPRESENTATIVE Soraya Malik MD LAB - MICROBIOL OGY ORDERABLES [facility] MICROBIOLOGY [address] [place] [address], [facility] [phone] * MRSA DNA PCR (09/22/2023 6:22 PM ARTIST REPRESENTATIVE) MRSA DNA by PCR Not detected Not detected 09/23/2023 12:36 AM ARTIST REPRESENTATIVE [facility] MICROBIOLOGY Microbiology SPECIMEN FROM NASAL FOSSAE / Unknown Collection / Unknown 09/22/2023 6:22 PM ARTIST REPRESENTATIVE 09/22/2023 6:42 PM ARTIST REPRESENTATIVE Narrative [facility] - 09/23/2023 12:36 AM ARTIST REPRESENTATIVE Methicillin-resistant Staphylococcus aureus (MRSA) DNA is not detected (presumed not colonized with MRSA). Soraya Malik MD LAB - MICROBIOL OGY ORDERABLES [facility] [address] [place] [address], [facility] [phone] * RESPIRATORY PANEL WITH SARS-COV-2 BY PCR (STL) (09/22/2023 6:21 PM ARTIST REPRESENTATIVE) [facility] Adenovirus PCR Not detected Not detected 09/23/2023 12:28 AM ARTIST REPRESENTATIVE [facility] Coronavirus 229E PCR Not detected Not detected 09/23/2023 12:28 AM ARTIST REPRESENTATIVE [facility] Coronavirus HKU1 PCR Not detected Not detected 09/23/2023 12:28 AM ARTIST REPRESENTATIVE [facility] Coronavirus NL63 PCR Not detected Not detected 09/23/2023 12:28 AM ARTIST REPRESENTATIVE [facility] Coronavirus OC43 PCR Not detected Not detected 09/23/2023 12:28 AM ARTIST REPRESENTATIVE [facility] COVID-19 PCR Not detected Not detected 09/23/2023 12:28 AM ARTIST REPRESENTATIVE [facility] Human Metapneumovirus PCR Not detected Not detected 09/23/2023 12:28 AM ARTIST REPRESENTATIVE [facility] Human Rhinovirus/Enterov irus PCR Not detected Not detected 09/23/2023 12:28 AM ARTIST REPRESENTATIVE [facility] Influenza A PCR Not detected Not detected 09/23/2023 12:28 AM ARTIST REPRESENTATIVE [facility] Influenza B PCR Not detected Not detected 09/23/2023 12:28 AM ARTIST REPRESENTATIVE [facility] Parainfluenza Virus 1 PCR Not detected Not detected 09/23/2023 12:28 AM ARTIST REPRESENTATIVE [facility] Parainfluenza Virus 2 PCR Not detected Not detected 09/23/2023 12:28 AM ARTIST REPRESENTATIVE [facility] Parainfluenza Virus 3 PCR Not detected Not detected 09/23/2023 12:28 AM ARTIST REPRESENTATIVE [facility] Parainfluenza Virus 4 PCR Not detected Not detected 09/23/2023 12:28 AM ARTIST REPRESENTATIVE [facility] Respiratory Syncytial Virus PCR Not detected Not detected 09/23/2023 12:28 AM [facility] Bordetella parapertussis PCR Not detected Not detected 09/23/2023 12:28 AM [facility] Bordetella pertussis PCR Not detected Not detected 09/23/2023 12:28 AM [facility] Chlamydia pneumoniae PCR Not detected Not detected 09/23/2023 12:28 AM [facility] Mycoplasma pneumoniae PCR Not detected Not detected 09/23/2023 12:28 AM [facility] Microbiology SPECIMEN FROM NASOPHARYNGEAL STRUCTURE / Unknown Collection / Unknown 09/22/2023 6:21 PM ARTIST REPRESENTATIVE 09/22/2023 6:32 PM ARTIST REPRESENTATIVE Narrative [facility] - 09/23/2023 12:28 AM ARTIST REPRESENTATIVE This nucleic amplification assay has received FDA authorization via the [employer]. Soraya Malik MD LAB - MICROBIOL OGY ORDERABLES [facility]CRO[facility] [address] [place] [address], [facility] [phone] * LACTIC ACID BLOOD REFLEX TO REPEAT (09/22/2023 5:42 PM ARTIST REPRESENTATIVE) [facility] Lactic Acid-Stat 0.6 <=2.0 mmol/L 09/22/2023 6:14 PM ARTIST REPRESENTATIVE [facility] Blood BLOOD SPECIMEN / Unknown Venipuncture / Unknown 09/22/2023 5:42 PM ARTIST REPRESENTATIVE 09/22/2023 5:53 PM ARTIST REPRESENTATIVE Soraya Malik MD LAB - CHEMISTRY ORDERABLES [facility] [address] [place] [address], [place] [phone] * (ABNORMAL) CBC W AUTO DIFFERENTIAL (09/22/2023 5:42 PM ARTIST REPRESENTATIVE) Pathologist [facility] WBC 0.2(LL) 4.0 - 10.7 x10E9/L 09/22/2023 7:16 PM ARTIST REPRESENTATIVE [facility] RBC Count 2.50(L) 3.90 - 5.20 x10E12/L 09/22/2023 7:16 PM [facility] Hemoglobin 7.8(L) 11.9 - 15.8 g/dL 09/22/2023 7:16 PM [facility] Hematocrit 20.9(L) 34.8 - 46.1 % 09/22/2023 7:16 PM [facility] MCV 83.6 80.0 - 98.0 fL 09/22/2023 7:16 PM [facility] MCH 31.2 26.7 - 33.6 pg 09/22/2023 7:16 PM [facility] MCHC 37.3(H) 31.7 - 36.3 g/dL 09/22/2023 7:16 PM [facility] RDW-CV 12.2 11.3 - 14.8 % 09/22/2023 7:16 PM [facility] Platelet Count 12(LL) 150 - 420 x10E9/L 09/22/2023 7:16 PM [facility] MPV 10.2 7.8 - 11.4 fL 09/22/2023 7:16 PM [facility] Preliminary Absolute Neutrophil 0.01(L) 1.60 - 7.50 x10E9/L 09/22/2023 7:16 PM [facility] Blood BLOOD SPECIMEN / Unknown Venipuncture / Unknown 09/22/2023 5:42 PM ARTIST REPRESENTATIVE 09/22/2023 5:53 PM ARTIST REPRESENTATIVE Soraya Malik MD LAB - HEMATOLOG Y ORDERABLES [facility] [address] [place] [id number], [facility] [phone] * XR CHEST 1VW PORTABLE (09/22/2023 5:10 PM ARTIST REPRESENTATIVE) Anatomical Region Laterality Modality Chest Radiographic Ammy ging 09/23/2023 1:44 PM ARTIST REPRESENTATIVE Narrative 09/23/2023 2:10 PM ARTIST REPRESENTATIVE PROCEDURE: ??XR CHEST 1VW PORTABLE, DATE/TIME OF EXAM: ??09/22/2023 5:10 PM, LOCATION ??[facility] 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 TECHNIQUE: Frontal radiographs of the chest. FINDINGS/IMPRESSION: Right IJ approach double lumen central venous catheter terminates in the right atrium Low lung volumes bilaterally. There is no focal consolidation, pleural effusion, or pneumothorax. The mediastinal and cardiac contours are normal. No acute osseous abnormality is seen. Report dictated by Haleigh Mosquera M.D. (assistant professor of radiology). Sergio Bartholomew MD have personally reviewed and interpreted this examination/study. 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 TECHNIQUE: Frontal radiographs of the chest. FINDINGS/IMPRESSION: Right IJ approach double lumen central venous catheter terminates in the right atrium Low lung volumes bilaterally. There is no focal consolidation, pleural effusion, or pneumothorax. The mediastinal and cardiac contours arenormal. No acute osseous abnormality is seen. Report dictated by Haleigh Mosquera M.D. (assistant professor of radiology). Sergio Bartholomew MD have personally reviewed and interpreted this examination/study. > Interpreting Provider: Sergio Arango MD on 09/23/2023 2:10 PM Soraya Malik MD DIAGNOSTIC IMAG ING ORDERABLES * VAS BILATERAL VENOUS DUPLEX LE (09/22/2023 1:20 PM ARTIST REPRESENTATIVE) Anatomical Region Laterality Modality Lower Extremity Intravascular Ul trasound 09/22/2023 12:5 5 PM ARTIST REPRESENTATIVE Narrative Procedure Note Pham Lee MD - 09/22/2023 Soraya Malik MD VASCULAR LAB OR DERABLES * URIC ACID BLOOD (09/22/2023 1:15 AM ARTIST REPRESENTATIVE) Pathologist [facility] Uric Acid 2.6 2.6 - 6.0 mg/dL 09/22/2023 2:28 AM [facility] Blood BLOOD SPECIMEN / Unknown Venipuncture / Unknown 09/22/2023 1:15 AM ARTIST REPRESENTATIVE 09/22/2023 2:02 AM ARTIST REPRESENTATIVE Soraya Malik MD LAB - CHEMISTRY ORDERABLES [address] [address], [facility] [phone] * (ABNORMAL) CBC W AUTO DIFFERENTIAL (09/22/2023 1:15 AM ARTIST REPRESENTATIVE) [facility] WBC 0.3(LL) 4.0 - 10.7 x10E9/L 09/22/2023 3:43 AM [facility] RBC Count 2.48(L) 3.90 - 5.20 x10E12/L 09/22/2023 3:43 AM [facility] Hemoglobin 7.7(L) 11.9 - 15.8 g/dL 09/22/2023 3:43 AM [facility] Hematocrit 20.8(L) 34.8 - 46.1 % 09/22/2023 3:43 AM [facility] MCV 83.9 80.0 - 98.0 fL 09/22/2023 3:43 AM [facility] MCH 31.0 26.7 - 33.6 pg 09/22/2023 3:43 AM [facility] MCHC 37.0(H) 31.7 - 36.3 g/dL 09/22/2023 3:43 AM [facility] RDW-CV 12.0 11.3 - 14.8 % 09/22/2023 3:43 AM [facility] Platelet Count 19(LL) 150 - 420 x10E9/L 09/22/2023 3:43 AM [facility] MPV 10.0 7.8 - 11.4 fL 09/22/2023 3:43 AM [facility] Preliminary Absolute Neutrophil 0.01(L) 1.60 - 7.50 x10E9/L 09/22/2023 3:43 AM [facility] Blood BLOOD SPECIMEN / Unknown Venipuncture / Unknown 09/22/2023 1:15 AM ARTIST REPRESENTATIVE 09/22/2023 2:02 AM ARTIST REPRESENTATIVE Soraya Malik MD LAB - HEMATOLOG Y ORDERABLES Performing Organization Address City/[facility]/ZIP Co de Phone Number [address] [address], [facility] [phone] * (ABNORMAL) PHOSPHORUS BLOOD (09/22/2023 1:15 AM ARTIST REPRESENTATIVE) Phosphorus 2.4(L) 2.9 - 5.1 mg/dL 09/22/2023 2:28 AM [facility] Blood BLOOD SPECIMEN / Unknown Venipuncture / Unknown 09/22/2023 1:15 AM ARTIST REPRESENTATIVE 09/22/2023 2:02 AM ARTIST REPRESENTATIVE Soraya Malik MD LAB - CHEMISTRY ORDERABLES Performing Organization Address [facility] Co de Phone Number [address] [address], [facility] [phone] * MAGNESIUM BLOOD (09/22/2023 1:15 AM ARTIST REPRESENTATIVE) Magnesium 1.7 1.6 - 2.6 mg/dL 09/22/2023 2:28 AM [facility] Blood BLOOD SPECIMEN / Unknown Venipuncture / Unknown 09/22/2023 1:15 AM ARTIST REPRESENTATIVE 09/22/2023 2:02 AM ARTIST REPRESENTATIVE Soraya Malik MD LAB - CHEMISTRY ORDERABLES Performing Organization Address City/[facility]/ZIP Co de Phone Number [address] [place] [address] [phone] * (ABNORMAL) COMPREHENSIVE METABOLIC PANEL (09/22/2023 1:15 AM [facility]) BUN <5(L) 7 - 26 mg/dL 09/22/2023 2:28 AM [facility] Creatinine 0.59 0.56 - 0.96 mg/dL 09/22/2023 2:28 AM [facility] Sodium 134(L) 136 - 145 mmol/L 09/22/2023 2:28 AM [facility] Potassium 3.4(L) 3.5 - 4.5 mmol/L 09/22/2023 2:28 AM [facility] Chloride 103 98 - 107 mmol/L 09/22/2023 2:28 AM [facility] CO2 22 22 - 29 mmol/L 09/22/2023 2:28 AM [facility] Glucose 118(H) 70 - 115 mg/dL 09/22/2023 2:28 AM [facility] Calcium 8.6 8.4 - 10.2 mg/dL 09/22/2023 2:28 AM [facility] Protein Total 6.3 6.0 - 8.3 g/dL 09/22/2023 2:28 AM [facility] Albumin 2.8(L) 3.4 - 5.0 g/dL 09/22/2023 2:28 AM [facility] Bilirubin Total 1.0 0.2 - 1.2 mg/dL 09/22/2023 2:28 AM [facility] Alkaline Phosphatase 65 40 - 150 U/L 09/22/2023 2:28 AM [facility] ALT 36 5 - 55 U/L 09/22/2023 2:28 AM [facility] AST 12 5 - 34 U/L 09/22/2023 2:28 AM [facility] Anion Gap 9 6 - 16 09/22/2023 2:28 AM [facility] BUN/Creatinine Ratio <8 7 - 23 09/22/2023 2:28 AM [facility] Osmolality Calculated <276 275 - 295 mOsm/kg 09/22/2023 2:28 AM [facility] Albumin/Globulin Ratio 0.8(L) 1.1 - 2.3 09/22/2023 2:28 AM ARTIST REPRESENTATIVE [facility] eGFR by CKD-EPI >90 >=90 mL/min/1.7 3 m2 09/22/2023 2:28 AM ARTIST REPRESENTATIVE [facility] Blood BLOOD SPECIMEN / Unknown Venipuncture / Unknown 09/22/2023 1:15 AM ARTIST REPRESENTATIVE 09/22/2023 2:02 AM ARTIST REPRESENTATIVE Cheryl Cronin MD LAB - CHEMISTRY ORDE ELYSIA [facility] [address] [place] [phone], [place] [phone] * TRANSFUSE RED BLOOD CELL LEUKOREDUCED UNIT(S) (09/22/2023 1:10 AM ARTIST REPRESENTATIVE) Soraya Malik MD NURSING - BLOOD PROD TRANSFUSION * TRANSFUSE RED BLOOD CELL LEUKOREDUCED UNIT(S), 1 Units (09/22/2023 1:10 AM ARTIST REPRESENTATIVE) Soraya Malik MD NURSING - BLOOD PROD TRANSFUSION * PREPARE (CROSSMATCH) RBC UNIT(S), 1 Units (09/21/2023 10:06 PM ARTIST REPRESENTATIVE) Unit Description AS1 LR PRBC IRR [facility] Unit ABO O [facility] Unit Rh POS [facility] Product Number R04 [facility] Unit Donor # [id number] [facility] Unit Status transfused [facility] Product Code [id number] [facility] Blood Type Barcode 5100 [facility] Expiration Date [id number] S [facility]LO[facility]ANK LAB Blood Bank BLOOD SPECIMEN / Unknown 09/19/2023 11:56 PM ARTIST REPRESENTATIVE Soraya Malik MD LAB - BLOOD BAN K ORDERABLES Performing Organization Address City/[facility]/ZIP Co de Phone Number [facility] [address] [place] [address], [place] [phone] * TYPE + SCREEN PANEL (09/21/2023 8:18 PM ARTIST REPRESENTATIVE) Pathologist [facility] Antibody Screen NEG 9:15 PM [facility] ABO Rh O POS 09/21/2023 9:15 PM [facility] Blood Bank BLOOD SPECIMEN / Unknown Venipuncture / Unknown 09/21/2023 8:18 PM ARTIST REPRESENTATIVE 09/21/2023 8:35 PM ARTIST REPRESENTATIVE Soraya Malik MD LAB - BLOOD BAN K ORDERABLES [facility] [address] [place] [address], [facility] [phone] * (ABNORMAL) CBC W AUTO DIFFERENTIAL (09/21/2023 4:12 PM ARTIST REPRESENTATIVE) [facility] WBC 0.2(LL) 4.0 - 10.7 x10E9/L 09/21/2023 5:29 PM [facility] RBC Count 2.23(L) 3.90 - 5.20 x10E12/L 09/21/2023 5:29 PM [facility] Hemoglobin 6.9(L) 11.9 - 15.8 g/dL 09/21/2023 5:29 PM [facility] Hematocrit 18.8(L) 34.8 - 46.1 % 09/21/2023 5:29 PM [facility] MCV 84.3 80.0 - 98.0 fL 09/21/2023 5:29 PM [facility] MCH 30.9 26.7 - 33.6 pg 09/21/2023 5:29 PM [facility] MCHC 36.7(H) 31.7 - 36.3 g/dL 09/21/2023 5:29 PM [facility] RDW-CV 12.0 11.3 - 14.8 % 09/21/2023 5:29 PM [facility] Platelet Count 26(L) 150 - 420 x10E9/L 09/21/2023 5:29 PM [facility] MPV 9.5 7.8 - 11.4 fL 09/21/2023 5:29 PM ARTIST REPRESENTATIVE [facility] Preliminary Absolute Neutrophil 0.01(L) 1.60 - 7.50 x10E9/L 09/21/2023 5:29 PM ARTIST REPRESENTATIVE [facility] Blood BLOOD SPECIMEN / Unknown Venipuncture / Unknown 09/21/2023 4:12 PM ARTIST REPRESENTATIVE 09/21/2023 4:30 PM ARTIST REPRESENTATIVE Soraya Malik MD LAB - HEMATOLOG Y ORDERABLES Performing Organization Address City/[facility]/ZIP Co de Phone Number [address] [address], [facility] [phone] * (ABNORMAL) PLATELET COUNT AUTO (09/21/2023 6:17 AM ARTIST REPRESENTATIVE) Pathologist [facility] Platelet Count 35(L) 150 - 420 x10E9/L 09/21/2023 9:38 AM ARTIST REPRESENTATIVE [facility] Blood BLOOD SPECIMEN / Unknown Venipuncture / Unknown 09/21/2023 6:17 AM ARTIST REPRESENTATIVE 09/21/2023 6:22 AM ARTIST REPRESENTATIVE Soraya Malik MD LAB - HEMATOLOG Y ORDERABLES Performing Organization Address City/[facility]/ZIP Co de Phone Number [address] [address], [place] [phone] * TRANSFUSE PLATELET PHERESIS UNIT(S) (09/21/2023 6:15 AM ARTIST REPRESENTATIVE) Genny Leigh MD NURSING - BLOOD PROD TRANSFUSION * TRANSFUSE PLATELET PHERESIS UNIT(S), 1 Units (09/21/2023 6:15 AM ARTIST REPRESENTATIVE) Genny Leigh MD NURSING - BLOOD PROD TRANSFUSION * PREPARE PLATELET PHERESIS UNIT(S), 1 Units (09/21/2023 5:12 AM ARTIST REPRESENTATIVE) Unit Description LR PLT Phere PRT [facility] Unit ABO O [facility] Unit Rh POS [facility] Product Number [id number] [facility] Unit Donor # [id number] [facility] Unit Status transfused [facility] Product Code [id number] [facility] Blood Type Barcode 5100 [facility] Expiration Date [id number] S BLOOD BANK LAB Blood Bank BLOOD SPECIMEN / Unknown 09/19/2023 11:56 PM ARTIST REPRESENTATIVE Genny Leigh MD LAB - BLOOD BANK ORD ERABLES [facility] [address] [place] [address], [facility] [phone] * (ABNORMAL) CBC W AUTO DIFFERENTIAL (09/21/2023 2:16 AM ARTIST REPRESENTATIVE) WBC 0.4(LL) 4.0 - 10.7 x10E9/L 09/21/2023 3:48 AM [facility] RBC Count 2.61(L) 3.90 - 5.20 x10E12/L 09/21/2023 3:48 AM [facility] Hemoglobin 8.3(L) 11.9 - 15.8 g/dL 09/21/2023 3:48 AM [facility] Hematocrit 22.2(L) 34.8 - 46.1 % 09/21/2023 3:48 AM [facility] MCV 85.1 80.0 - 98.0 fL 09/21/2023 3:48 AM [facility] MCH 31.8 26.7 - 33.6 pg 09/21/2023 3:48 AM [facility] MCHC 37.4(H) 31.7 - 36.3 g/dL 09/21/2023 3:48 AM [facility] RDW-CV 12.1 11.3 - 14.8 % 09/21/2023 3:48 AM [facility] Platelet Count 9(LL) 150 - 420 x10E9/L 09/21/2023 3:48 AM [facility] MPV 8.7 7.8 - 11.4 fL 09/21/2023 3:48 AM [facility] Preliminary Absolute Neutrophil 0.00(L) 1.60 - 7.50 x10E9/L 09/21/2023 3:48 AM ARTIST REPRESENTATIVE [facility] Blood BLOOD SPECIMEN / Unknown Venipuncture / Unknown 09/21/2023 2:16 AM ARTIST REPRESENTATIVE 09/21/2023 2:21 AM ARTIST REPRESENTATIVE Soraya Malik MD LAB - HEMATOLOG Y ORDERABLES Performing Organization Address City/[facility]/ZIP Co de Phone Number [address] [address], [facility] [phone] * (ABNORMAL) PHOSPHORUS BLOOD (09/21/2023 2:16 AM ARTIST REPRESENTATIVE) Phosphorus 2.7(L) 2.9 - 5.1 mg/dL 09/21/2023 2:48 AM ARTIST REPRESENTATIVE [facility] Blood BLOOD SPECIMEN / Unknown Venipuncture / Unknown 09/21/2023 2:16 AM ARTIST REPRESENTATIVE 09/21/2023 2:22 AM ARTIST REPRESENTATIVE Soraya Malik MD LAB - CHEMISTRY ORDERABLES Performing Organization Address [facility] Co de Phone Number [address] [address], [place] [phone] * MAGNESIUM BLOOD (09/21/2023 2:16 AM ARTIST REPRESENTATIVE) Magnesium 1.8 1.6 - 2.6 mg/dL 09/21/2023 2:48 AM ARTIST REPRESENTATIVE [facility] Blood BLOOD SPECIMEN / Unknown Venipuncture / Unknown 09/21/2023 2:16 AM ARTIST REPRESENTATIVE 09/21/2023 2:22 AM ARTIST REPRESENTATIVE Soraya Malik MD LAB - CHEMISTRY ORDERABLES Performing Organization Address [facility]/ZIP Co de Phone Number [address] [address], [place] [phone] * (ABNORMAL) COMPREHENSIVE METABOLIC PANEL (09/21/2023 2:16 AM ARTIST REPRESENTATIVE) BUN 6(L) 7 - 26 mg/dL 09/21/2023 2:48 AM [facility] Creatinine 0.64 0.56 - 0.96 mg/dL 09/21/2023 2:48 AM [facility] Sodium 133(L) 136 - 145 mmol/L 09/21/2023 2:48 AM [facility] Potassium 3.8 3.5 - 4.5 mmol/L 09/21/2023 2:48 AM [facility] Chloride 102 98 - 107 mmol/L 09/21/2023 2:48 AM [facility] CO2 22 22 - 29 mmol/L 09/21/2023 2:48 AM [facility] Glucose 126(H) 70 - 115 mg/dL 09/21/2023 2:48 AM [facility] Calcium 9.1 8.4 - 10.2 mg/dL 09/21/2023 2:48 AM [facility] Protein Total 6.8 6.0 - 8.3 g/dL 09/21/2023 2:48 AM [facility] Albumin 3.1(L) 3.4 - 5.0 g/dL 09/21/2023 2:48 AM [facility] Bilirubin Total 1.3(H) 0.2 - 1.2 mg/dL 09/21/2023 2:48 AM [facility] Alkaline Phosphatase 72 40 - 150 U/L 09/21/2023 2:48 AM [facility] ALT 54 5 - 55 U/L 09/21/2023 2:48 AM [facility] AST 24 5 - 34 U/L 09/21/2023 2:48 AM [facility] Anion Gap 9 6 - 16 09/21/2023 2:48 AM [facility] BUN/Creatinine Ratio 9 7 - 23 09/21/2023 2:48 AM [facility] Osmolality Calculated 275 275 - 295 mOsm/kg 09/21/2023 2:48 AM [facility] Albumin/Globulin Ratio 0.8(L) 1.1 - 2.3 09/21/2023 2:48 AM [facility] eGFR by CKD-EPI >90 >=90 mL/min/1.7 3 m2 09/21/2023 2:48 AM [facility] Blood BLOOD SPECIMEN / Unknown Venipuncture / Unknown 09/21/2023 2:16 AM ARTIST REPRESENTATIVE 09/21/2023 2:22 AM ARTIST REPRESENTATIVE Cheryl Cronin MD LAB - CHEMISTRY [facility] Organization Address City/State/ZIP Co de Phone Number [facility] [address] [place] [phone], [facility] [phone] * (ABNORMAL) CBC W AUTO DIFFERENTIAL (09/20/2023 4:11 PM ARTIST REPRESENTATIVE) WBC 0.3(LL) 4.0 - 10.7 x10E9/L 09/20/2023 5:21 PM [facility] RBC Count 2.52(L) 3.90 - 5.20 x10E12/L 09/20/2023 5:21 PM [facility] Hemoglobin 7.9(L) 11.9 - 15.8 g/dL 09/20/2023 5:21 PM [facility] Hematocrit 21.3(L) 34.8 - 46.1 % 09/20/2023 5:21 PM [facility] MCV 84.5 80.0 - 98.0 fL 09/20/2023 5:21 PM [facility] MCH 31.3 26.7 - 33.6 pg 09/20/2023 5:21 PM [facility] MCHC 37.1(H) 31.7 - 36.3 g/dL 09/20/2023 5:21 PM [facility] RDW-CV 12.0 11.3 - 14.8 % 09/20/2023 5:21 PM [facility] Platelet Count 11(LL) 150 - 420 x10E9/L 09/20/2023 5:21 PM [facility] MPV 8.6 7.8 - 11.4 fL 09/20/2023 5:21 PM [facility] Preliminary Absolute Neutrophil 0.00(L) 1.60 - 7.50 x10E9/L 09/20/2023 5:21 PM ARTIST REPRESENTATIVE [facility] Blood BLOOD SPECIMEN / Unknown Venipuncture / Unknown 09/20/2023 4:11 PM ARTIST REPRESENTATIVE 09/20/2023 4:30 PM ARTIST REPRESENTATIVE Soraya Malik MD LAB - HEMATOLOG Y ORDERABLES [facility] [address] [place] [address], [facility] [phone] * (ABNORMAL) CBC W AUTO DIFFERENTIAL (09/20/2023 3:53 AM ARTIST REPRESENTATIVE) WBC 0.4(LL) 4.0 - 10.7 x10E9/L 09/20/2023 7:53 AM [facility] RBC Count 2.48(L) 3.90 - 5.20 x10E12/L 09/20/2023 7:53 AM [facility] Hemoglobin 7.7(L) 11.9 - 15.8 g/dL 09/20/2023 7:53 AM [facility] Hematocrit 21.4(L) 34.8 - 46.1 % 09/20/2023 7:53 AM [facility] MCV 86.3 80.0 - 98.0 fL 09/20/2023 7:53 AM [facility] MCH 31.0 26.7 - 33.6 pg 09/20/2023 7:53 AM [facility] MCHC 36.0 31.7 - 36.3 g/dL 09/20/2023 7:53 AM [facility] RDW-CV 12.1 11.3 - 14.8 % 09/20/2023 7:53 AM [facility] Platelet Count 14(LL) 150 - 420 x10E9/L 09/20/2023 7:53 AM [facility] MPV 9.7 7.8 - 11.4 fL 09/20/2023 7:53 AM [facility] Preliminary Absolute Neutrophil 0.02(L) 1.60 - 7.50 x10E9/L 09/20/2023 7:53 AM [facility] Blood BLOOD SPECIMEN / Unknown Venipuncture / Unknown 09/20/2023 3:53 AM ARTIST REPRESENTATIVE 09/20/2023 4:05 AM ARTIST REPRESENTATIVE Soraya Malik MD LAB - HEMATOLOG Y ORDERABLES Performing Organization Address City/[facility]/ZIP Co de Phone Number [facility] [address] [place] [address], [facility] [phone] * TRANSFUSE RED BLOOD CELL LEUKOREDUCED UNIT(S) (09/20/2023 3:29 AM ARTIST REPRESENTATIVE) Dominic Farah MD NURSING - BLOOD PROD TRANSFUSION * TRANSFUSE RED BLOOD CELL LEUKOREDUCED UNIT(S), 1 Units (09/20/2023 3:29 AM ARTIST REPRESENTATIVE) Dominic Farah MD NURSING - BLOOD PROD TRANSFUSION * PREPARE (CROSSMATCH) RBC UNIT(S), 1 Units (09/20/2023 12:46 AM ARTIST REPRESENTATIVE) Unit Description AS1 LR PRBC IRR [facility] Unit ABO O [facility] Unit Rh POS [facility] Product Number R04 [facility] Unit Donor # [id number] [facility] Unit Status transfused [facility] Product Code [id number] [facility] Blood Type Barcode 5100 [facility] Expiration Date [id number] [facility] Blood Bank BLOOD SPECIMEN / Unknown 09/19/2023 11:56 PM ARTIST REPRESENTATIVE Dominic Farah MD LAB - BLOOD BANK ORD ERABLES [facility] [address] [place] [address], [place] [phone] * TYPE + SCREEN PANEL (09/19/2023 11:52 PM ARTIST REPRESENTATIVE) Antibody Screen NEG 12:38 AM ARTIST REPRESENTATIVE [facility] ABO Rh O POS 09/20/2023 12:38 AM ARTIST REPRESENTATIVE [facility] Blood Bank BLOOD SPECIMEN / Unknown Venipuncture / Unknown 09/19/2023 11:52 PM ARTIST REPRESENTATIVE 09/19/2023 11:56 PM ARTIST REPRESENTATIVE Dominic Farah MD LAB - BLOOD BANK ORD ERABLES Performing Organization Address [facility]/ZIP Co de Phone Number [facility] [address] [place] [address], [place] [phone] * PHOSPHORUS BLOOD (09/19/2023 9:30 PM ARTIST REPRESENTATIVE) Phosphorus 3.1 2.9 - 5.1 mg/dL 09/19/2023 10:16 PM ARTIST REPRESENTATIVE [facility] Blood BLOOD SPECIMEN / Unknown Venipuncture / Unknown 09/19/2023 9:30 PM ARTIST REPRESENTATIVE 09/19/2023 9:49 PM ARTIST REPRESENTATIVE Soraya Malik MD LAB - CHEMISTRY ORDERABLES Performing Organization Address [facility]/ZIP Co de Phone Number [address] [address], [place] [phone] * MAGNESIUM BLOOD (09/19/2023 9:30 PM ARTIST REPRESENTATIVE) Magnesium 1.8 1.6 - 2.6 mg/dL 09/19/2023 10:16 PM ARTIST REPRESENTATIVE [facility] Blood BLOOD SPECIMEN / Unknown Venipuncture / Unknown 09/19/2023 9:30 PM ARTIST REPRESENTATIVE 09/19/2023 9:49 PM ARTIST REPRESENTATIVE Soraya Malik MD LAB - CHEMISTRY ORDERABLES Performing Organization Address [facility]/ZIP Co de Phone Number [address] [address], [place] [phone] * (ABNORMAL) COMPREHENSIVE METABOLIC PANEL (09/19/2023 9:30 PM ARTIST REPRESENTATIVE) BUN 10 7 - 26 mg/dL 09/19/2023 10:16 PM ARTIST REPRESENTATIVE [facility] Creatinine 0.63 0.56 - 0.96 mg/dL 09/19/2023 10:16 PM ARTIST REPRESENTATIVE [facility] Sodium 136 136 - 145 mmol/L 09/19/2023 10:16 PM [facility] Potassium 3.6 3.5 - 4.5 mmol/L 09/19/2023 10:16 PM [facility] Chloride 106 98 - 107 mmol/L 09/19/2023 10:16 PM [facility] CO2 22 22 - 29 mmol/L 09/19/2023 10:16 PM [facility] Glucose 111 70 - 115 mg/dL 09/19/2023 10:16 PM [facility] Calcium 8.8 8.4 - 10.2 mg/dL 09/19/2023 10:16 PM [facility] Protein Total 6.4 6.0 - 8.3 g/dL 09/19/2023 10:16 PM [facility] Albumin 3.1(L) 3.4 - 5.0 g/dL 09/19/2023 10:16 PM [facility] Bilirubin Total 0.7 0.2 - 1.2 mg/dL 09/19/2023 10:16 PM [facility] Alkaline Phosphatase 68 40 - 150 U/L 09/19/2023 10:16 PM [facility] ALT 50 5 - 55 U/L 09/19/2023 10:16 PM [facility] AST 24 5 - 34 U/L 09/19/2023 10:16 PM [facility] Anion Gap 8 6 - 16 09/19/2023 10:16 PM [facility] BUN/Creatinine Ratio 16 7 - 23 09/19/2023 10:16 PM [facility] Osmolality Calculated 282 275 - 295 mOsm/kg 09/19/2023 10:16 PM [facility] Albumin/Globulin Ratio 0.9(L) 1.1 - 2.3 09/19/2023 10:16 PM [facility] eGFR by CKD-EPI >90 >=90 mL/min/1.7 3 m2 09/19/2023 10:16 PM [facility] Blood BLOOD SPECIMEN / Unknown Venipuncture / Unknown 09/19/2023 9:30 PM ARTIST REPRESENTATIVE 09/19/2023 9:49 PM [facility] Cheryl Cronin MD LAB - CHEMISTRY JON NAIDU [facility] [address] [place] [address], [facility] [phone] * (ABNORMAL) CBC W AUTO DIFFERENTIAL (09/19/2023 9:30 PM ARTIST REPRESENTATIVE) WBC 0.4(LL) 4.0 - 10.7 x10E9/L 09/20/2023 1:59 AM [facility] RBC Count 2.15(L) 3.90 - 5.20 x10E12/L 09/20/2023 1:59 AM [facility] Hemoglobin 6.7(L) 11.9 - 15.8 g/dL 09/20/2023 1:59 AM [facility] Hematocrit 18.4(L) 34.8 - 46.1 % 09/20/2023 1:59 AM [facility] MCV 85.6 80.0 - 98.0 fL 09/20/2023 1:59 AM [facility] MCH 31.2 26.7 - 33.6 pg 09/20/2023 1:59 AM [facility] MCHC 36.4(H) 31.7 - 36.3 g/dL 09/20/2023 1:59 AM [facility] RDW-CV 12.1 11.3 - 14.8 % 09/20/2023 1:59 AM [facility] Platelet Count 18(LL) 150 - 420 x10E9/L 09/20/2023 1:59 AM [facility] MPV 9.2 7.8 - 11.4 fL 09/20/2023 1:59 AM [facility] Preliminary Absolute Neutrophil 0.01(L) 1.60 - 7.50 x10E9/L 09/20/2023 1:59 AM [facility] Blood BLOOD SPECIMEN / Unknown Venipuncture / Unknown 09/19/2023 9:30 PM ARTIST REPRESENTATIVE 09/19/2023 9:49 PM ARTIST REPRESENTATIVE Soraya Malik MD LAB - HEMATOLOG Y ORDERABLES [facility] [address] [place] [address], [facility] [phone] * EKG 12-LEAD (09/19/2023 2:40 PM ARTIST REPRESENTATIVE) Ventricular Rate 118 BPM [facility]USE Atrial Rate 118 BPM [facility] MUSE P-R Interval 134 ms [facility] MUSE QRS Duration ms 70 ms [facility] MUSE Q-T Interval ms 292 ms [facility] MUSE QTC Calculation (Bezet) 409 ms [facility] MUSE Calculated P [place] 50 degrees [facility] Calculated R [place] 43 degrees [facility] M[facility] Calculated T [place] 21 degrees [facility] MUSE Interpretation EKG SINUS TACHYCARDIA NONSPECIFIC T WAVE ABNORMALITY ABNORMAL ECG NO PREVIOUS ECGS AVAILABLE Confirmed by ANA HERBERT, [email or web address] ([id number]) on 10/02/2023 6:27:27 AM [facility] MUSE 09/19/2023 2:40 PM ARTIST REPRESENTATIVE 10/02/2023 6:27 AM ARTIST REPRESENTATIVE Soraya Malik MD ECG ORDERABLES [facility] MUSE * FLOW CYTOMETRY BONE MARROW (09/19/2023 11:35 AM ARTIST REPRESENTATIVE) Pathologist [facility] Case Report Flow Cytometry ?Case: [id number] ? Authorizing Provider: ??Soraya Malik MD Collected: ? 09/19/2023 11:35 AM ? Ordering Location: ? [facility] 7N ACUTE ? Received: ?09/19/2023 12:27 PM ? Pathologist: ? Poonam Diamond MD ? Specimen: ?Bone Marrow ? 09/19/2023 3:24 PM [facility] PATHOLOGY LAB Final Diagnosis Bone marrow, flow cytometric immunophenotypic analysis: - Markedly paucicellular marrow with no significant blast population detected - See interpretation 09/19/2023 3:24 PM [facility] PATH[facility] Flow Cytometry Interpretation Viability: 94% B-cells: polytypic, kappa:lambda ratio 1.7:1 T-cells: no immunophenotypic aberrancy detected with the markers assessed Blasts: not detected A bone marrow aspirate smear prepared from the flow cytometry specimen has been reviewed for automotive quality manager purposes. 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 A-2 Flow CD10 A-3 Flow CD13 A-5 Flow CD20 A-11 Flow CD2 A-13 Flow CD14 A-16 Flow CD117 A-17 Flow CD11b A-18 Flow CD11c A-1 Flow CD5 A-4 Flow CD19 A-6 Flow CD33 A-7 Flow CD34 A-8 Flow CD45 A-12 Flow CD7 A-14 Flow CD56 A-15 Flow CD64 A-9 [place]+CD19+ A-10 Lambda+CD19+ A-19 Flow HLA-DR 09/19/2023 3:24 PM [facility] Pathologist Location at [facility] 09/19/2023 3:24 PM [facility] Disclaimer Test performed at [facility], [address] [place] [address], [id number]. *The established laboratory minimum viability is 70%. [...] qualified to perform high complexity clinical testing. 09/19/2023 3:24 PM [facility] Embedded Images 3:24 PM [facility] Pathology/Cytolo gy BONE MARROW SPECIMEN / Unknown Collection / Unknown 09/19/2023 11:35 AM ARTIST REPRESENTATIVE 09/19/2023 12:27 PM ARTIST REPRESENTATIVE Soraya Malik MD LAB - PATHOLOGY /CYTOLOGY ORDERABLES Performing Organization Address [facility]/State/ZIP Co de Phone Number [facility] [address] [place] [address]. [place] [address], [facility] [phone] * BONE MARROW BIOPSY (STL) (09/19/2023 11:35 AM ARTIST REPRESENTATIVE) Case Report Bone Marrow Patholog y Report ?Case: [id number] ? Authorizing Provider: ??Soraya Malik MD Collected: ? 09/19/2023 11:35 AM ? Ordering Location: ? [facility] 7N ACUTE ? Received: ?09/19/2023 12:28 PM ? Pathologist: ? Beverly Ferro, ? Specimens: ?? A) - Bone Marrow Clot ? B) - Bone Marrow Core ? C) - Bone Marrow Aspirate ? D) - Blood Peripheral ? 09/22/2023 4:46 PM ARTIST REPRESENTATIVE [facility] Final Diagnosis Bone marrow, core biopsy and aspirate: - No morphologic evidence of residual acute myeloid leukemia in a markedly hypocellular bone marrow (5% cellular) 09/22/2023 4:46 PM ARTIST REPRESENTATIVE [facility] Peripheral Smear Description Manual Differential Count (100 cells): 1% neutrophils, 98% lymphocytes, 1% monocytes, 0% eosinophils, and 0% basophils. 0 nRBCs / 100 WBCs. Leukocyte number: decreased. Granulocyte morphology: neutrophils nearly absent. Lymphocyte morphology: abnormal, numerous cleaved and rare immature forms noted. Erythrocyte number: decreased. Erythrocyte morphology: normocytic. Anisopoikilocytosis: not significant. Polychromasia: not significant. Platelet number: decreased. Platelet morphology: normal. 09/22/2023 4:46 PM [facility] Bone Marrow Aspirate Differential count not performed as aspirate smears are essentially devoid of spicules and markedly hemodilute. On scanning, definitive blasts are not identified. Specimen quality: markedly suboptimal. A single, very small, acellular spicule is identified. Spicules: small. Trilineage Hematopoiesis: absent. Myeloid:Erythroid ratio: decreased. Myeloid Maturation: no significant myeloid population identified. Erythroid Maturation: cannot be adequately assessed due to the lack of significant erythroid precursors. Megakaryocyte morphology: cannot be evaluated. Storage iron (by special stain): decreased. Sideroblastic iron (by special stain): no ring sideroblasts. Iron evaluation suboptimal given the lack of cellular spicules. 09/22/2023 4:46 PM [facility] Bone Marrow Core Biopsy and Clot Section Description Specimen quality: adequate with 1.0 cm of evaluable marrow. Cellularity: < 5% Trilineage Hematopoiesis: absent. The marrow cellularity consists almost entirely of lymphocytes and plasma cells, typical of therapy-related hypoplasia. Myeloid to Erythroid ratio: decreased. Myeloid maturation and localization: other, virtually absent . Erythroid maturation and localization: other, markedly decreased. Megakaryocyte number: decreased. Megakaryocyte distribution: only rare cells identified. Lymphoid aggregates: absent. Bone trabeculae: normal. Blood vessels: normal. Other: No morphologic evidence of increased blasts. Plasma cells: increased, but normal morphology. Clot section marrow particles: absent. Clot section morphology: peripheral blood only. 09/22/2023 4:46 PM [facility] Flow Cytometry Summary Flow cytometry diagnosis ([id number]): Markedly paucicellular marrow with no significant blast population identified. 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 Received fresh, specimen A, clot is less than 1 cc of bright red fluid-like blood. The specimen is placed in a biopsy bag and entirely submitted in cassette A1. Received in formalin, specimen B, core is a 1.2 x 0.2 cm red-brown bony core. The specimen is entirely submitted in cassette B1 following a 1 hour decalicifcation in [employer]. IKD 09/22/2023 4:46 PM [facility] Microscopic Description CD117 immunohistochemistry with an appropriately reacting control performed on the bone marrow core biopsy highlights <1% of cells. 09/22/2023 4:46 PM [facility] PATH[facility] Pathologist Location at [facility] 09/22/2023 4:46 PM [facility] Disclaimer The performance characteristics of all immunohistochemical and indirect immunofluorescence stains (if any) cited in this report were determined by the Histopathology Laboratory of [facility]. Some of these tests were developed [...] and interpreted by the attending (teaching) pathologist. 09/22/2023 4:46 PM [facility] Embedded Images 09/22/2023 4:46 PM [facility] Pathology/Cytology PERIPHERAL BLOOD / Unknown Collection / Unknown 09/19/2023 11:35 AM ARTIST REPRESENTATIVE 09/19/2023 12:28 PM ARTIST REPRESENTATIVE Miscellaneous samples (specimen) BONE MARROW SPECIMEN / Unknown 09/19/2023 11:35 AM ARTIST REPRESENTATIVE 09/19/2023 12:28 PM ARTIST REPRESENTATIVE Miscellaneous samples (specimen) SPECIMEN FROM BONE MARROW OBTAINED BY ASPIRATION / Unknown 09/19/2023 11:35 AM ARTIST REPRESENTATIVE 09/19/2023 12:28 PM ARTIST REPRESENTATIVE Miscellaneous samples (specimen) PERIPHERAL BLOOD / Unknown 09/19/2023 11:35 AM ARTIST REPRESENTATIVE 09/19/2023 2:00 PM ARTIST REPRESENTATIVE Soraya Malik MD LAB - PATHOLOGY /CYTOLOGY ORDERABLES [facility] [address] [place] [address], [facility] [phone] * (ABNORMAL) DIFFERENTIAL MANUAL (09/18/2023 10:25 PM ARTIST REPRESENTATIVE) Neutrophil % 0(L) 41 - 74 % 09/19/2023 12:22 AM [facility] Lymphocyte % 100(H) 17 - 47 % 09/19/2023 12:22 AM [facility] Neutrophil Absolute 0.00(L) 1.60 - 7.50 x10E9/L 09/19/2023 12:22 AM [facility] Lymphocyte Absolute 0.50(L) 1.00 - 4.40 x10E9/L 09/19/2023 12:22 AM [facility] RBC Morphology NORMAL 09/19/2023 12:22 AM [facility] Blood BLOOD SPECIMEN / Unknown Venipuncture / Unknown 09/18/2023 10:25 PM ARTIST REPRESENTATIVE 09/18/2023 10:42 PM ARTIST REPRESENTATIVE Soraya Malik MD LAB - HEMATOLOG Y ORDERABLES Performing Organization Address City/[facility]/ZIP Co de Phone Number [facility] [address] [place] [address], [facility] [phone] * (ABNORMAL) CBC W AUTO DIFFERENTIAL (09/18/2023 10:25 PM ARTIST REPRESENTATIVE) WBC 0.5(LL) 4.0 - 10.7 x10E9/L 09/19/2023 12:25 AM [facility] RBC Count 2.23(L) 3.90 - 5.20 x10E12/L 09/19/2023 12:25 AM [facility] Hemoglobin 7.0(L) 11.9 - 15.8 g/dL 09/19/2023 12:25 AM [facility] Hematocrit 19.2(L) 34.8 - 46.1 % 09/19/2023 12:25 AM [facility] MCV 86.1 80.0 - 98.0 fL 09/19/2023 12:25 AM [facility] MCH 31.4 26.7 - 33.6 pg 09/19/2023 12:25 AM [facility] MCHC 36.5(H) 31.7 - 36.3 g/dL 09/19/2023 12:25 AM [facility] RDW-CV 12.2 11.3 - 14.8 % 09/19/2023 12:25 AM [facility] Platelet Count 27(L) 150 - 420 x10E9/L 09/19/2023 12:25 AM [facility] Comment:Platelet reviewed by smear. MPV 10.0 7.8 - 11.4 fL 09/19/2023 12:25 AM [facility] Preliminary Absolute Neutrophil 0.01(L) 1.60 - 7.50 x10E9/L 09/19/2023 12:25 AM [facility] Blood BLOOD SPECIMEN / Unknown Venipuncture / Unknown 09/18/2023 10:25 PM ARTIST REPRESENTATIVE 09/18/2023 10:42 PM ARTIST REPRESENTATIVE Soraya Malik MD LAB - HEMATOLOG Y ORDERABLES [address] [address], [facility] [phone] * (ABNORMAL) PHOSPHORUS BLOOD (09/18/2023 10:25 PM ARTIST REPRESENTATIVE) Phosphorus 2.7(L) 2.9 - 5.1 mg/dL 09/18/2023 11:08 PM [facility] Blood BLOOD SPECIMEN / Unknown Venipuncture / Unknown 09/18/2023 10:25 PM ARTIST REPRESENTATIVE 09/18/2023 10:42 PM ARTIST REPRESENTATIVE Jamel Silverio MD LAB - CHEMISTRY ORDERABLES [facility] [address] [place] [address], [facility] [phone] * MAGNESIUM BLOOD (09/18/2023 10:25 PM ARTIST REPRESENTATIVE) [facility] Magnesium 2.0 1.6 - 2.6 mg/dL 09/18/2023 11:08 PM [facility] Blood BLOOD SPECIMEN / Unknown Venipuncture / Unknown 09/18/2023 10:25 PM ARTIST REPRESENTATIVE 09/18/2023 10:42 PM ARTIST REPRESENTATIVE Jamel Silverio MD LAB - CHEMISTRY ORDERABLES Performing Organization Address City/[facility]/ZIP Co de Phone Number [address] [address], [facility] [phone] * (ABNORMAL) COMPREHENSIVE METABOLIC PANEL (09/18/2023 10:25 PM ARTIST REPRESENTATIVE) [facility] BUN 6(L) 7 - 26 mg/dL 09/18/2023 11:08 PM [facility] Creatinine 0.58 0.56 - 0.96 mg/dL 09/18/2023 11:08 PM [facility] Sodium 138 136 - 145 mmol/L 09/18/2023 11:08 PM [facility] Potassium 4.1 3.5 - 4.5 mmol/L 09/18/2023 11:08 PM [facility] Chloride 109(H) 98 - 107 mmol/L 09/18/2023 11:08 PM [facility] CO2 23 22 - 29 mmol/L 09/18/2023 11:08 PM [facility] Glucose 117(H) 70 - 115 mg/dL 09/18/2023 11:08 PM [facility] Calcium 8.7 8.4 - 10.2 mg/dL 09/18/2023 11:08 PM [facility] Protein Total 6.3 6.0 - 8.3 g/dL 09/18/2023 11:08 PM [facility] Albumin 3.1(L) 3.4 - 5.0 g/dL 09/18/2023 11:08 PM [facility] Bilirubin Total 0.5 0.2 - 1.2 mg/dL 09/18/2023 11:08 PM [facility] Alkaline Phosphatase 66 40 - 150 U/L 09/18/2023 11:08 PM [facility] ALT 44 5 - 55 U/L 09/18/2023 11:08 PM [facility] AST 20 5 - 34 U/L 09/18/2023 11:08 PM [facility] Anion Gap 6 6 - 16 09/18/2023 11:08 PM [facility] BUN/Creatinine Ratio 10 7 - 23 09/18/2023 11:08 PM [facility] Osmolality Calculated 285 275 - 295 mOsm/kg 09/18/2023 11:08 PM [facility] Albumin/Globulin Ratio 1.0(L) 1.1 - 2.3 09/18/2023 11:08 PM [facility] eGFR by CKD-EPI >90 >=90 mL/min/1.7 3 m2 09/18/2023 11:08 PM [facility] Blood BLOOD SPECIMEN / Unknown Venipuncture / Unknown 09/18/2023 10:25 PM ARTIST REPRESENTATIVE 09/18/2023 10:42 PM [facility] Cheryl Cronin MD LAB - CHEMISTRY ORDE [facility] Organization Address City/State/ZIP Co de Phone Number [facility] [address] [place] [address], [facility] [phone] * (ABNORMAL) CBC W AUTO DIFFERENTIAL (09/18/2023 10:18 AM [facility]) WBC 0.4(LL) 4.0 - 10.7 x10E9/L 09/18/2023 12:32 PM [facility] Comment:No diff per protocol RBC Count 2.45(L) 3.90 - 5.20 x10E12/L 09/18/2023 12:32 PM [facility] Hemoglobin 7.7(L) 11.9 - 15.8 g/dL 09/18/2023 12:32 PM [facility] Hematocrit 21.4(L) 34.8 - 46.1 % 09/18/2023 12:32 PM [facility] MCV 87.3 80.0 - 98.0 fL 09/18/2023 12:32 PM [facility] MCH 31.4 26.7 - 33.6 pg 09/18/2023 12:32 PM [facility] MCHC 36.0 31.7 - 36.3 g/dL 09/18/2023 12:32 PM [facility] RDW-CV 12.4 11.3 - 14.8 % 09/18/2023 12:32 PM [facility] Platelet Count 33(L) 150 - 420 x10E9/L 09/18/2023 12:32 PM [facility] MPV 9.6 7.8 - 11.4 fL 09/18/2023 12:32 PM [facility] Preliminary Absolute Neutrophil 0.00(L) 1.60 - 7.50 x10E9/L 09/18/2023 12:32 PM [facility] Blood BLOOD SPECIMEN / Unknown Venipuncture / Unknown 09/18/2023 10:18 AM ARTIST REPRESENTATIVE 09/18/2023 10:30 AM ARTIST REPRESENTATIVE Soraya Malik MD LAB - HEMATOLOG Y ORDERABLES Performing Organization Address [facility]/State/[facility] Co de Phone Number [address] [address], [facility] [phone] * TRANSFUSE PLATELET PHERESIS UNIT(S) (09/18/2023 12:36 AM ARTIST REPRESENTATIVE) Graham Beltran MD NURSING - BLOOD PROD TRANSFUSION * TRANSFUSE PLATELET PHERESIS UNIT(S), 1 Units (09/18/2023 12:36 AM ARTIST REPRESENTATIVE) Graham Beltran MD NURSING - BLOOD PROD TRANSFUSION * PREPARE PLATELET PHERESIS UNIT(S), 1 Units (09/17/2023 11:58 PM ARTIST REPRESENTATIVE) Unit Description LRPLTphere B7 IR [facility] BLOOD BANK LAB Unit ABO O [facility]LO[facility] Unit Rh POS [facility] BLOOD [facility] LAB Product Number P32 [facility] B LOOD BANK LAB Unit Donor # [id number] [facility] BLO[facility] Unit Status transfused [facility] BLO OD BANK LAB Product Code T8032S53 [facility] BLO OD BANK LAB Blood Type Barcode 5100 [facility] BLOOD [facility] LAB Expiration Date [id number] S BLOOD BANK LAB Blood Bank BLOOD SPECIMEN / Unknown 09/15/2023 8:48 PM ARTIST REPRESENTATIVE Graham Beltran MD LAB - BLOOD BANK ORD ERABLES Performing Organization Address City/[facility]/ZIP Co de Phone Number [facility] LAB [address] [place] [address], [facility] [phone] * (ABNORMAL) DIFFERENTIAL MANUAL (09/17/2023 8:29 PM ARTIST REPRESENTATIVE) Neutrophil % 0(L) 41 - 74 % 09/17/2023 10:07 PM [facility] Lymphocyte % 100(H) 17 - 47 % 09/17/2023 10:07 PM [facility] Neutrophil Absolute 0.00(L) 1.60 - 7.50 x10E9/L 09/17/2023 10:07 PM [facility] Lymphocyte Absolute 0.60(L) 1.00 - 4.40 x10E9/L 09/17/2023 10:07 PM [facility] RBC Morphology NORMAL 09/17/2023 10:07 PM [facility] Blood BLOOD SPECIMEN / Unknown Venipuncture / Unknown 09/17/2023 8:29 PM ARTIST REPRESENTATIVE 09/17/2023 8:45 PM ARTIST REPRESENTATIVE Cheryl Cronin MD LAB - HEMATOLOGY ORD ERABLES [facility] [address] [place] [address], [place] [phone] * (ABNORMAL) COMPREHENSIVE METABOLIC PANEL (09/17/2023 8:29 PM ARTIST REPRESENTATIVE) Pathologist [facility] BUN 11 7 - 26 mg/dL 09/17/2023 9:13 PM [facility] Creatinine 0.65 0.56 - 0.96 mg/dL 09/17/2023 9:13 PM [facility] Sodium 139 136 - 145 mmol/L 09/17/2023 9:13 PM [facility] Potassium 4.2 3.5 - 4.5 mmol/L 09/17/2023 9:13 PM [facility] Chloride 107 98 - 107 mmol/L 09/17/2023 9:13 PM [facility] CO2 25 22 - 29 mmol/L 09/17/2023 9:13 PM [facility] Glucose 119(H) 70 - 115 mg/dL 09/17/2023 9:13 PM [facility] Calcium 9.1 8.4 - 10.2 mg/dL 09/17/2023 9:13 PM [facility] Protein Total 6.7 6.0 - 8.3 g/dL 09/17/2023 9:13 PM [facility] Albumin 3.4 3.4 - 5.0 g/dL 09/17/2023 9:13 PM [facility] Bilirubin Total 0.8 0.2 - 1.2 mg/dL 09/17/2023 9:13 PM [facility] Alkaline Phosphatase 62 40 - 150 U/L 09/17/2023 9:13 PM [facility] ALT 41 5 - 55 U/L 09/17/2023 9:13 PM [facility] AST 22 5 - 34 U/L 09/17/2023 9:13 PM [facility] Anion Gap 7 6 - 16 09/17/2023 9:13 PM [facility] BUN/Creatinine Ratio 17 7 - 23 09/17/2023 9:13 PM [facility] Osmolality Calculated 289 275 - 295 mOsm/kg 09/17/2023 9:13 PM [facility] Albumin/Globulin Ratio 1.0(L) 1.1 - 2.3 09/17/2023 9:13 PM [facility] eGFR by CKD-EPI >90 >=90 mL/min/1.7 3 m2 09/17/2023 9:13 PM [facility] Blood BLOOD SPECIMEN / Unknown Venipuncture / Unknown 09/17/2023 8:29 PM ARTIST REPRESENTATIVE 09/17/2023 8:45 PM ARTIST REPRESENTATIVE Cheryl Cronin MD LAB - CHEMISTRY ORDAzul NAIDU [facility] [address] [place] [address], [facility] [phone] * (ABNORMAL) CBC W AUTO DIFFERENTIAL (09/17/2023 8:29 PM ARTIST REPRESENTATIVE) WBC 0.6(LL) 4.0 - 10.7 x10E9/L 09/17/2023 10:07 PM [facility] RBC Count 2.57(L) 3.90 - 5.20 x10E12/L 09/17/2023 10:07 PM [facility] Hemoglobin 8.1(L) 11.9 - 15.8 g/dL 09/17/2023 10:07 PM [facility] Hematocrit 22.2(L) 34.8 - 46.1 % 09/17/2023 10:07 PM [facility] MCV 86.4 80.0 - 98.0 fL 09/17/2023 10:07 PM [facility] MCH 31.5 26.7 - 33.6 pg 09/17/2023 10:07 PM [facility] MCHC 36.5(H) 31.7 - 36.3 g/dL 09/17/2023 10:07 PM [facility] RDW-CV 12.6 11.3 - 14.8 % 09/17/2023 10:07 PM [facility] Platelet Count 8(LL) 150 - 420 x10E9/L 09/17/2023 10:07 PM [facility] Comment:Platelet reviewed by smear. MPV 13.2(H) 7.8 - 11.4 fL 09/17/2023 10:07 PM [facility] Preliminary Absolute Neutrophil 0.01(L) 1.60 - 7.50 x10E9/L 09/17/2023 10:07 PM [facility] Blood BLOOD SPECIMEN / Unknown Venipuncture / Unknown 09/17/2023 8:29 PM ARTIST REPRESENTATIVE 09/17/2023 8:45 PM [facility] Cheryl Cronin MD LAB - HEMATOLOGY MANJULA HONG [facility] [address] [place] [address], [facility] [phone] * (ABNORMAL) DIFFERENTIAL MANUAL (09/16/2023 8:20 PM ARTIST REPRESENTATIVE) [facility] Neutrophil % 2(L) 41 - 74 % 09/16/2023 9:42 PM [facility] Lymphocyte % 98(H) 17 - 47 % 09/16/2023 9:42 PM [facility] Neutrophil Absolute 0.01(L) 1.60 - 7.50 x10E9/L 09/16/2023 9:42 PM [facility] Lymphocyte Absolute 0.59(L) 1.00 - 4.40 x10E9/L 09/16/2023 9:42 PM [facility] RBC Morphology NORMAL 09/16/2023 9:42 PM [facility] Blood BLOOD SPECIMEN / Unknown Venipuncture / Unknown 09/16/2023 8:20 PM ARTIST REPRESENTATIVE 09/16/2023 8:34 PM ARTIST REPRESENTATIVE Cheryl Cronin MD LAB - HEMATOLOGY ORD ERABLES [address] [address], [facility] [phone] * (ABNORMAL) COMPREHENSIVE METABOLIC PANEL (09/16/2023 8:20 PM ARTIST REPRESENTATIVE) [facility] BUN 7 7 - 26 mg/dL 09/16/2023 9:03 PM [facility] Creatinine 0.62 0.56 - 0.96 mg/dL 09/16/2023 9:03 PM [facility] Sodium 138 136 - 145 mmol/L 09/16/2023 9:03 PM [facility] Potassium 4.0 3.5 - 4.5 mmol/L 09/16/2023 9:03 PM [facility] Chloride 108(H) 98 - 107 mmol/L 09/16/2023 9:03 PM [facility] CO2 24 22 - 29 mmol/L 09/16/2023 9:03 PM [facility] Glucose 139(H) 70 - 115 mg/dL 09/16/2023 9:03 PM [facility] Calcium 8.8 8.4 - 10.2 mg/dL 09/16/2023 9:03 PM [facility] Protein Total 6.6 6.0 - 8.3 g/dL 09/16/2023 9:03 PM [facility] Albumin 3.2(L) 3.4 - 5.0 g/dL 09/16/2023 9:03 PM [facility] Bilirubin Total 0.7 0.2 - 1.2 mg/dL 09/16/2023 9:03 PM [facility] Alkaline Phosphatase 57 40 - 150 U/L 09/16/2023 9:03 PM [facility] ALT 36 5 - 55 U/L 09/16/2023 9:03 PM [facility] AST 15 5 - 34 U/L 09/16/2023 9:03 PM [facility] Anion Gap 6 6 - 16 09/16/2023 9:03 PM [facility] BUN/Creatinine Ratio 11 7 - 23 09/16/2023 9:03 PM [facility] Osmolality Calculated 286 275 - 295 mOsm/kg 09/16/2023 9:03 PM [facility] Albumin/Globulin Ratio 0.9(L) 1.1 - 2.3 09/16/2023 9:03 PM [facility] eGFR by CKD-EPI >90 >=90 mL/min/1.7 3 m2 09/16/2023 9:03 PM [facility] Blood BLOOD SPECIMEN / Unknown Venipuncture / Unknown 09/16/2023 8:20 PM ARTIST REPRESENTATIVE 09/16/2023 8:34 PM [facility] Cheryl Cronin MD LAB - CHEMISTRY JON NAIDU [facility] Organization Address City/State/ZIP Co de Phone Number [facility] [address] [place] [phone], [facility] [phone] * (ABNORMAL) CBC W AUTO DIFFERENTIAL (09/16/2023 8:20 PM ARTIST REPRESENTATIVE) WBC 0.6(LL) 4.0 - 10.7 x10E9/L 09/16/2023 9:42 PM [facility] RBC Count 2.65(L) 3.90 - 5.20 x10E12/L 09/16/2023 9:42 PM [facility] Hemoglobin 8.3(L) 11.9 - 15.8 g/dL 09/16/2023 9:42 PM [facility] Hematocrit 23.1(L) 34.8 - 46.1 % 09/16/2023 9:42 PM [facility] MCV 87.2 80.0 - 98.0 fL 09/16/2023 9:42 PM [facility] MCH 31.3 26.7 - 33.6 pg 09/16/2023 9:42 PM [facility] MCHC 35.9 31.7 - 36.3 g/dL 09/16/2023 9:42 PM [facility] RDW-CV 13.1 11.3 - 14.8 % 09/16/2023 9:42 PM [facility] Platelet Count 13(LL) 150 - 420 x10E9/L 09/16/2023 9:42 PM [facility] MPV 12.1(H) 7.8 - 11.4 fL 09/16/2023 9:42 PM [facility] Preliminary Absolute Neutrophil 0.05(L) 1.60 - 7.50 x10E9/L 09/16/2023 9:42 PM [facility] Blood BLOOD SPECIMEN / Unknown Venipuncture / Unknown 09/16/2023 8:20 PM ARTIST REPRESENTATIVE 09/16/2023 8:34 PM [facility] Cheryl Cronin MD LAB - HEMATOLOGY ORD ERABLES [facility] [address] [place] [address], [facility] [phone] * (ABNORMAL) COMPREHENSIVE METABOLIC PANEL (09/15/2023 8:40 PM [facility]) BUN 9 7 - 26 mg/dL 09/15/2023 9:14 PM [facility] Creatinine 0.66 0.56 - 0.96 mg/dL 09/15/2023 9:14 PM [facility] Sodium 137 136 - 145 mmol/L 09/15/2023 9:14 PM [facility] Potassium 3.9 3.5 - 4.5 mmol/L 09/15/2023 9:14 PM [facility] Chloride 108(H) 98 - 107 mmol/L 09/15/2023 9:14 PM [facility] CO2 24 22 - 29 mmol/L 09/15/2023 9:14 PM [facility] Glucose 124(H) 70 - 115 mg/dL 09/15/2023 9:14 PM [facility] Calcium 8.8 8.4 - 10.2 mg/dL 09/15/2023 9:14 PM [facility] Protein Total 6.4 6.0 - 8.3 g/dL 09/15/2023 9:14 PM [facility] Albumin 3.2(L) 3.4 - 5.0 g/dL 09/15/2023 9:14 PM [facility] Bilirubin Total 0.6 0.2 - 1.2 mg/dL 09/15/2023 9:14 PM [facility] Alkaline Phosphatase 55 40 - 150 U/L 09/15/2023 9:14 PM [facility] ALT 36 5 - 55 U/L 09/15/2023 9:14 PM [facility] AST 16 5 - 34 U/L 09/15/2023 9:14 PM [facility] Anion Gap 5(L) 6 - 16 09/15/2023 9:14 PM [facility] BUN/Creatinine Ratio 14 7 - 23 09/15/2023 9:14 PM [facility] Osmolality Calculated 284 275 - 295 mOsm/kg 09/15/2023 9:14 PM [facility] Albumin/Globulin Ratio 1.0(L) 1.1 - 2.3 09/15/2023 9:14 PM [facility] eGFR by CKD-EPI >90 >=90 mL/min/1.7 3 m2 09/15/2023 9:14 PM [facility] Blood BLOOD SPECIMEN / Unknown Venipuncture / Unknown 09/15/2023 8:40 PM [facility] 09/15/2023 8:48 PM ARTIST REPRESENTATIVE Cheryl Cronin MD LAB - CHEMISTRY ORDE ELYSIA [facility] [address] [place] [address], [facility] [phone] * (ABNORMAL) CBC W AUTO DIFFERENTIAL (09/15/2023 8:40 PM ARTIST REPRESENTATIVE) WBC 0.5(LL) 4.0 - 10.7 x10E9/L 09/15/2023 10:04 PM [facility] RBC Count 2.60(L) 3.90 - 5.20 x10E12/L 09/15/2023 10:04 PM [facility] Hemoglobin 8.3(L) 11.9 - 15.8 g/dL 09/15/2023 10:04 PM [facility] Hematocrit 22.4(L) 34.8 - 46.1 % 09/15/2023 10:04 PM [facility] MCV 86.2 80.0 - 98.0 fL 09/15/2023 10:04 PM [facility] MCH 31.9 26.7 - 33.6 pg 09/15/2023 10:04 PM [facility] MCHC 37.1(H) 31.7 - 36.3 g/dL 09/15/2023 10:04 PM [facility] RDW-CV 13.2 11.3 - 14.8 % 09/15/2023 10:04 PM [facility] Platelet Count 20(L) 150 - 420 x10E9/L 09/15/2023 10:04 PM [facility] MPV 11.0 7.8 - 11.4 fL 09/15/2023 10:04 PM [facility] Preliminary Absolute Neutrophil 0.01(L) 1.60 - 7.50 x10E9/L 09/15/2023 10:04 PM [facility] Blood BLOOD SPECIMEN / Unknown Venipuncture / Unknown 09/15/2023 8:40 PM ARTIST REPRESENTATIVE 09/15/2023 8:47 PM ARTIST REPRESENTATIVE Cheryl Cronin MD LAB - HEMATOLOGY ORD ERABLES [facility] [address] [place] [address], [facility] [phone] * TYPE + SCREEN PANEL (09/15/2023 8:40 PM ARTIST REPRESENTATIVE) Antibody Screen NEG 9:29 PM ARTIST REPRESENTATIVE [facility] ABO Rh O POS 09/15/2023 9:29 PM ARTIST REPRESENTATIVE [facility] Blood Bank BLOOD SPECIMEN / Unknown Venipuncture / Unknown 09/15/2023 8:40 PM ARTIST REPRESENTATIVE 09/15/2023 8:48 PM ARTIST REPRESENTATIVE Myah Roberts DO LAB - BLOOD BANK ORD ERABLES Performing Organization Address City/[facility]/ZIP Co de Phone Number [facility] [address] [place] [address], [facility] [phone] * TRANSFUSE PLATELET PHERESIS UNIT(S) (09/15/2023 6:03 AM ARTIST REPRESENTATIVE) Myah Roberts DO NURSING - BLOOD PROD TRANSFUSION * TRANSFUSE PLATELET PHERESIS UNIT(S), 1 Units (09/15/2023 6:03 AM ARTIST REPRESENTATIVE) Myah Roberts DO NURSING - BLOOD PROD TRANSFUSION * TRANSFUSE RED BLOOD CELL LEUKOREDUCED UNIT(S) (09/15/2023 6:03 AM ARTIST REPRESENTATIVE) Graham Beltran MD NURSING - BLOOD PROD TRANSFUSION * TRANSFUSE RED BLOOD CELL LEUKOREDUCED UNIT(S), 1 Units (09/15/2023 6:03 AM ARTIST REPRESENTATIVE) Graham Beltran MD NURSING - BLOOD PROD TRANSFUSION * XR ABDOMEN KUB (09/15/2023 5:37 AM ARTIST REPRESENTATIVE) Anatomical Region Laterality Modality Abdomen Radiographic Ammy ging 09/16/2023 6:56 AM ARTIST REPRESENTATIVE Impressions 09/17/2023 2:19 PM ARTIST REPRESENTATIVE IMPRESSION: No gross radiographic evidence of acute intra-abdominal process, however examination is severely limited due to the patient's morbidly obese body habitus Report dictated by Ivy Corea Dr, MD (assistant professor of radiology). Raheem Bartholomew MD have personally reviewed and interpreted this examination/study. > Interpreting Provider: Raheem Cazares MD on 09/17/2023 2:19 PM Narrative 09/17/2023 2:19 PM ARTIST REPRESENTATIVE PROCEDURE: ??XR ABDOMEN KUB, DATE/TIME OF EXAM: ??09/15/2023 5:38 AM, LOCATION [facility] INDICATION: R14.0: Bloating ADDITIONAL CLINICAL INFORMATION: Ordering [...] DATE/TIME OF EXAM: 09/15/2023 5:38 AM, LOCATION [facility] INDICATION: R14.0: Bloating ADDITIONAL CLINICAL INFORMATION: Ordering [...] Report dictated by Ivy Corea Dr, MD (assistant professor of radiology). Raheem Bartholomew MD have personally reviewed and interpreted this examination/study. > Interpreting Provider: Raheem Cazares MD on 09/17/2023 2:19 PM Graham Beltran MD DIAGNOSTIC IMAGING O RDERABLES * PREPARE PLATELET PHERESIS UNIT(S), 1 Units (09/15/2023 3:37 AM ARTIST REPRESENTATIVE) Unit Description LR PLT Phere PRT [facility] Unit ABO O [facility] Unit Rh POS [facility] Product Number [id number] [facility] Unit Donor # [id number] [facility] Unit Status transfused [facility] Product Code B3507H16 [facility] Blood Type Barcode 5100 [facility] Expiration Date S BLOOD BANK LAB Blood Bank BLOOD SPECIMEN / Unknown 09/12/2023 8:54 PM ARTIST REPRESENTATIVE Graham Beltran MD LAB - BLOOD BANK ORD ERABLES [facility] [address] [place] [address], [place] [phone] * PREPARE (CROSSMATCH) RBC UNIT(S), 1 Units (09/15/2023 12:33 AM ARTIST REPRESENTATIVE) Unit Description AS1 LR PRBC IRR [facility] Unit ABO O [facility] Unit Rh POS [facility] Product Number R04 [facility] Unit Donor # [id number] [facility] Unit Status transfused [facility] Product Code [id number] [facility] Blood Type Barcode 5100 [facility] Expiration Date [id number] [facility] Blood Bank BLOOD SPECIMEN / Unknown 09/12/2023 8:54 PM ARTIST REPRESENTATIVE Graham Beltran MD LAB - BLOOD BANK ORD ERABLES [facility] [address] [place] [address], [place] [phone] * PHOSPHORUS BLOOD (09/14/2023 9:50 PM ARTIST REPRESENTATIVE) Phosphorus 2.9 2.9 - 5.1 mg/dL 09/15/2023 12:24 AM ARTIST REPRESENTATIVE [facility] Blood BLOOD SPECIMEN / Unknown Venipuncture / Unknown 09/14/2023 9:50 PM ARTIST REPRESENTATIVE 09/14/2023 10:18 PM ARTIST REPRESENTATIVE Graham Beltran MD LAB - CHEMISTRY [facility] [address] [address], [place] [phone] * MAGNESIUM BLOOD (09/14/2023 9:50 PM ARTIST REPRESENTATIVE) Magnesium 1.9 1.6 - 2.6 mg/dL 09/15/2023 12:24 AM [facility] Blood BLOOD SPECIMEN / Unknown Venipuncture / Unknown 09/14/2023 9:50 PM ARTIST REPRESENTATIVE 09/14/2023 10:18 PM ARTIST REPRESENTATIVE Graham Beltran MD LAB - CHEMISTRY JON NAIDU Performing Organization Address [facility]/ZIP Co de Phone Number [address] [address], [place] [phone] * (ABNORMAL) COMPREHENSIVE METABOLIC PANEL (09/14/2023 9:50 PM ARTIST REPRESENTATIVE) BUN 12 7 - 26 mg/dL 09/14/2023 10:46 PM [facility] Creatinine 0.62 0.56 - 0.96 mg/dL 09/14/2023 10:46 PM [facility] Sodium 139 136 - 145 mmol/L 09/14/2023 10:46 PM [facility] Potassium 3.9 3.5 - 4.5 mmol/L 09/14/2023 10:46 PM [facility] Chloride 111(H) 98 - 107 mmol/L 09/14/2023 10:46 PM [facility] CO2 23 22 - 29 mmol/L 09/14/2023 10:46 PM [facility] Glucose 191(H) 70 - 115 mg/dL 09/14/2023 10:46 PM [facility] Calcium 8.5 8.4 - 10.2 mg/dL 09/14/2023 10:46 PM [facility] Protein Total 5.9(L) 6.0 - 8.3 g/dL 09/14/2023 10:46 PM [facility] Albumin 2.9(L) 3.4 - 5.0 g/dL 09/14/2023 10:46 PM [facility] Bilirubin Total 0.3 0.2 - 1.2 mg/dL 09/14/2023 10:46 PM [facility] Alkaline Phosphatase 57 40 - 150 U/L 09/14/2023 10:46 PM [facility] ALT 34 5 - 55 U/L 09/14/2023 10:46 PM [facility] AST 11 5 - 34 U/L 09/14/2023 10:46 PM [facility] Anion Gap 5(L) 6 - 16 09/14/2023 10:46 PM [facility] BUN/Creatinine Ratio 19 7 - 23 09/14/2023 10:46 PM [facility] Osmolality Calculated 293 275 - 295 mOsm/kg 09/14/2023 10:46 PM [facility] Albumin/Globulin Ratio 1.0(L) 1.1 - 2.3 09/14/2023 10:46 PM [facility] eGFR by CKD-EPI >90 >=90 mL/min/1.7 3 m2 09/14/2023 10:46 PM [facility] Blood BLOOD SPECIMEN / Unknown Venipuncture / Unknown 09/14/2023 9:50 PM ARTIST REPRESENTATIVE 09/14/2023 10:18 PM [facility] Cheryl Cronin MD LAB - CHEMISTRY JON NAIDU [facility] Organization Address City/State/[facility] Co de Phone Number [facility] [address] [place] [address], [facility] [phone] * (ABNORMAL) CBC W AUTO DIFFERENTIAL (09/14/2023 9:50 PM ARTIST REPRESENTATIVE) WBC 0.5(LL) 4.0 - 10.7 x10E9/L 09/15/2023 2:14 AM [facility] RBC Count 2.14(L) 3.90 - 5.20 x10E12/L 09/15/2023 2:14 AM [facility] Hemoglobin 6.8(L) 11.9 - 15.8 g/dL 09/15/2023 2:14 AM [facility] Hematocrit 18.9(L) 34.8 - 46.1 % 09/15/2023 2:14 AM [facility] MCV 88.3 80.0 - 98.0 fL 09/15/2023 2:14 AM [facility] MCH 31.8 26.7 - 33.6 pg 09/15/2023 2:14 AM [facility] MCHC 36.0 31.7 - 36.3 g/dL 09/15/2023 2:14 AM [facility] RDW-CV 13.3 11.3 - 14.8 % 09/15/2023 2:14 AM [facility] Platelet Count 6(LL) 150 - 420 x10E9/L 09/15/2023 2:14 AM [facility] MPV 12.8(H) 7.8 - 11.4 fL 09/15/2023 2:14 AM [facility] Blood BLOOD SPECIMEN / Unknown Venipuncture / Unknown 09/14/2023 9:50 PM ARTIST REPRESENTATIVE 09/14/2023 10:18 PM ARTIST REPRESENTATIVE Cheryl Cronin MD LAB - HEMATOLOGY ORD ERABLES [facility] [address] [place] [address], [place] [phone] * GLUCOSE - POINT OF CARE (09/14/2023 7:39 AM ARTIST REPRESENTATIVE) Glucose WB/POC 84 70 - 115 mg/dL 09/14/2023 7:56 AM [facility] Specimen Type Cap Fingerstick 2022 7:56 AM [facility] Blood BLOOD SPECIMEN / Unknown 09/14/2023 7:39 AM ARTIST REPRESENTATIVE 09/14/2023 7:56 AM ARTIST REPRESENTATIVE Myah Roberts DO LAB - POINT OF CARE ORDERABLES [facility] [address] [place] [address], [place] [phone] * (ABNORMAL) RETIC COUNT (09/13/2023 8:52 PM ARTIST REPRESENTATIVE) Pathologist [facility] Reticulocyte Percent 0.43(L) 0.50 - 2.40 % 09/13/2023 11:29 PM [facility] Reticulocyte Absolute 0.0098(L) 0.0200 - 0.1100 x10E6/uL 09/13/2023 11:29 PM [facility] Ret-HE 35.7 29.0 - 37.9 pg 09/13/2023 11:29 PM [facility] Immature Reticulocyte Fraction 0.8(L) 1.8 - 15.2 % 09/13/2023 11:29 PM [facility] Blood BLOOD SPECIMEN / Unknown Venipuncture / Unknown 09/13/2023 8:52 PM ARTIST REPRESENTATIVE 09/13/2023 9:18 PM ARTIST REPRESENTATIVE Myah Roberts DO LAB - HEMATOLOGY ORD ERABLES Performing Organization Address City/[facility]/ZIP Co de Phone Number [address] [address], [facility] [phone] * PTT [facility] (09/13/2023 8:52 PM ARTIST REPRESENTATIVE) Pathologist [facility] APTT 23.2 23.0 - 38.4 Seconds 09/13/2023 9:40 PM [facility] Comment:Suggested therapeuti c range for full dose I.V. unfractionated heparin therapy for venous thromboembolism is 71 to 109 seconds. Blood BLOOD SPECIMEN / Unknown Venipuncture / Unknown 09/13/2023 8:52 PM ARTIST REPRESENTATIVE 09/13/2023 9:17 PM ARTIST REPRESENTATIVE Myah Roberts DO LAB - COAGULATION OR DERABLES [address] [address], [facility] [phone] * PT-INR [facility] (09/13/2023 8:52 PM ARTIST REPRESENTATIVE) Pathologist [facility] PT 13.1 12.1 - 14.8 Seconds 09/13/2023 9:40 PM [facility] INR 1.0 See Comment 09/13/2023 9:40 PM [facility] Comment:The suggested therap eutic range for standard coumadin (warfarin) therapy is an INR of 2.0-3.0. For high-risk patients (Mechanical Mitral Valve Prosthesis, etc.), the suggested prophylactic therapeutic range is an INR of 2.5-3.5. Blood BLOOD SPECIMEN / Unknown Venipuncture / Unknown 09/13/2023 8:52 PM ARTIST REPRESENTATIVE 09/13/2023 9:17 PM ARTIST REPRESENTATIVE Myah Roberts DO LAB - COAGULATION OR DERABLES Performing Organization Address [facility]/ZIP Co de Phone Number [address] [address], [place] [phone] * (ABNORMAL) LDH BLOOD (09/13/2023 8:52 PM ARTIST REPRESENTATIVE) LDH Total 302(H) 125 - 243 Units/L 09/13/2023 9:43 PM ARTIST REPRESENTATIVE [facility] Blood BLOOD SPECIMEN / Unknown Venipuncture / Unknown 09/13/2023 8:52 PM ARTIST REPRESENTATIVE 09/13/2023 9:17 PM ARTIST REPRESENTATIVE Myah Roberts DO LAB - CHEMISTRY JON NAIDU Performing Organization Address [facility]/ZIP Co de Phone Number [address] [address], [place] [phone] * (ABNORMAL) HAPTOGLOBIN (09/13/2023 8:52 PM ARTIST REPRESENTATIVE) Haptoglobin 271(H) 14 - 258 mg/dL 09/13/2023 9:46 PM ARTIST REPRESENTATIVE [facility] Comment:Result obtained by jose de jesus ashby. Blood BLOOD SPECIMEN / Unknown Venipuncture / Unknown 09/13/2023 8:52 PM ARTIST REPRESENTATIVE 09/13/2023 9:07 PM ARTIST REPRESENTATIVE Myah Roberts DO LAB - CHEMISTRY [facility]ON NA[facility] [address] [place] [address], [facility] [phone] * FIBRINOGEN ACTIVITY (09/13/2023 8:52 PM ARTIST REPRESENTATIVE) [facility] Fibrinogen Clauss 266 200 - 400 mg/dL 09/13/2023 9:41 PM ARTIST REPRESENTATIVE [facility] Blood BLOOD SPECIMEN / Unknown Venipuncture / Unknown 09/13/2023 8:52 PM ARTIST REPRESENTATIVE 09/13/2023 9:17 PM ARTIST REPRESENTATIVE Myah Roberts DO LAB - COAGULATION OR DERABLES [address] [address], [facility] [phone] * (ABNORMAL) D-DIMER (09/13/2023 8:52 PM ARTIST REPRESENTATIVE) [facility] D-Dimer Quantitative 2.22(H) <=0.50 mcg/mL FEU 09/13/2023 9:43 PM ARTIST REPRESENTATIVE [facility] Comment: In the absence of clinical [...] Unknown Venipuncture / Unknown 09/13/2023 8:52 PM ARTIST REPRESENTATIVE 09/13/2023 9:17 PM ARTIST REPRESENTATIVE Myah Roberts DO LAB - COAGULATION OR DERABLES Performing Organization Address City/[facility]/ZIP Co de Phone Number [address] [address], [facility] [phone] * URIC ACID BLOOD (09/13/2023 8:52 PM ARTIST REPRESENTATIVE) Uric Acid 2.9 2.6 - 6.0 mg/dL 09/13/2023 9:43 PM [facility] Blood BLOOD SPECIMEN / Unknown Venipuncture / Unknown 09/13/2023 8:52 PM ARTIST REPRESENTATIVE 09/13/2023 9:17 PM ARTIST REPRESENTATIVE Cheryl Cronin MD LAB - CHEMISTRY ORDE ELYSIA [address] [address], [facility] [phone] * (ABNORMAL) COMPREHENSIVE METABOLIC PANEL (09/13/2023 8:52 PM ARTIST REPRESENTATIVE) BUN 10 7 - 26 mg/dL 09/13/2023 9:43 PM [facility] Creatinine 0.66 0.56 - 0.96 mg/dL 09/13/2023 9:43 PM [facility] Sodium 138 136 - 145 mmol/L 09/13/2023 9:43 PM [facility] Potassium 3.7 3.5 - 4.5 mmol/L 09/13/2023 9:43 PM [facility] Chloride 108(H) 98 - 107 mmol/L 09/13/2023 9:43 PM [facility] CO2 22 22 - 29 mmol/L 09/13/2023 9:43 PM [facility] Glucose 135(H) 70 - 115 mg/dL 09/13/2023 9:43 PM ARTIST REPRESENTATIVE [facility] Calcium 8.4 8.4 - 10.2 mg/dL 09/13/2023 9:43 PM [facility] Protein Total 6.1 6.0 - 8.3 g/dL 09/13/2023 9:43 PM [facility] Albumin 3.0(L) 3.4 - 5.0 g/dL 09/13/2023 9:43 PM [facility] Bilirubin Total 0.5 0.2 - 1.2 mg/dL 09/13/2023 9:43 PM [facility] Alkaline Phosphatase 55 40 - 150 U/L 09/13/2023 9:43 PM [facility] ALT 40 5 - 55 U/L 09/13/2023 9:43 PM [facility] AST 15 5 - 34 U/L 09/13/2023 9:43 PM [facility] Anion Gap 8 6 - 16 09/13/2023 9:43 PM [facility] BUN/Creatinine Ratio 15 7 - 23 09/13/2023 9:43 PM [facility] Osmolality Calculated 287 275 - 295 mOsm/kg 09/13/2023 9:43 PM [facility] Albumin/Globulin Ratio 1.0(L) 1.1 - 2.3 09/13/2023 9:43 PM [facility] eGFR by CKD-EPI >90 >=90 mL/min/1.7 3 m2 09/13/2023 9:43 PM [facility] Blood BLOOD SPECIMEN / Unknown Venipuncture / Unknown 09/13/2023 8:52 PM ARTIST REPRESENTATIVE 09/13/2023 9:17 PM [facility] Cheryl Cronin MD LAB - CHEMISTRY JON NAIDU [facility] [address] [place] [address], [facility] [phone] * (ABNORMAL) CBC W AUTO DIFFERENTIAL (09/13/2023 8:52 PM ARTIST REPRESENTATIVE) WBC 0.5(LL) 4.0 - 10.7 x10E9/L 09/13/2023 11:29 PM [facility] RBC Count 2.28(L) 3.90 - 5.20 x10E12/L 09/13/2023 11:29 PM [facility] Hemoglobin 7.4(L) 11.9 - 15.8 g/dL 09/13/2023 11:29 PM [facility] Hematocrit 20.0(L) 34.8 - 46.1 % 09/13/2023 11:29 PM [facility] MCV 87.7 80.0 - 98.0 fL 09/13/2023 11:29 PM [facility] MCH 32.5 26.7 - 33.6 pg 09/13/2023 11:29 PM [facility] MCHC 37.0(H) 31.7 - 36.3 g/dL 09/13/2023 11:29 PM [facility] RDW-CV 13.4 11.3 - 14.8 % 09/13/2023 11:29 PM [facility] Platelet Count 11(LL) 150 - 420 x10E9/L 09/13/2023 11:29 PM [facility] Preliminary Absolute Neutrophil 0.05(L) 1.60 - 7.50 x10E9/L 09/13/2023 11:29 PM [facility] Blood BLOOD SPECIMEN / Unknown Venipuncture / Unknown 09/13/2023 8:52 PM ARTIST REPRESENTATIVE 09/13/2023 9:18 PM ARTIST REPRESENTATIVE Cheryl Cronin MD LAB - HEMATOLOGY ORD ERABLES Performing Organization Address City/State/[facility] Co de Phone Number [facility] [address] [place] [address], [facility] [phone] * (ABNORMAL) GLUCOSE - POINT OF CARE (09/13/2023 8:35 PM ARTIST REPRESENTATIVE) Glucose WB/POC 154(H) 70 - 115 mg/dL 09/13/2023 8:39 PM [facility] Specimen Type Cap Fingerstick 2022 8:39 PM [facility] Blood BLOOD SPECIMEN / Unknown 09/13/2023 8:35 PM ARTIST REPRESENTATIVE 09/13/2023 8:39 PM ARTIST REPRESENTATIVE Myah Caponebrandon LAB - POINT OF CARE ORDERABLES [address] [address], [place] [phone] * (ABNORMAL) GLUCOSE - POINT OF CARE (09/13/2023 4:56 PM ARTIST REPRESENTATIVE) Glucose WB/POC 148(H) 70 - 115 mg/dL 09/13/2023 7:59 PM ARTIST REPRESENTATIVE [facility] Specimen Type Arterial 09/13/2023 7:59 PM ARTIST REPRESENTATIVE [facility] Blood BLOOD SPECIMEN / Unknown 09/13/2023 4:56 PM ARTIST REPRESENTATIVE 09/13/2023 7:59 PM ARTIST REPRESENTATIVE Myah Roberts LAB - POINT OF CARE ORDERABLES Performing Organization Address City/[facility]/ZIP Co de Phone Number [address] [address], [place] [phone] * (ABNORMAL) GLUCOSE - POINT OF CARE (09/13/2023 12:35 PM ARTIST REPRESENTATIVE) Glucose WB/POC 123(H) 70 - 115 mg/dL 09/13/2023 12:40 PM ARTIST REPRESENTATIVE [facility] Specimen Type Arterial 09/13/2023 12:40 PM ARTIST REPRESENTATIVE [facility] Blood BLOOD SPECIMEN / Unknown 09/13/2023 12:35 PM ARTIST REPRESENTATIVE 09/13/2023 12:40 PM ARTIST REPRESENTATIVE Myah Rodríguez [facility] LAB - POINT OF CARE ORDERABLES [address] [address], [place] [phone] * GLUCOSE - POINT OF CARE (09/13/2023 8:07 AM ARTIST REPRESENTATIVE) Glucose WB/POC 85 70 - 115 mg/dL 09/13/2023 12:34 PM ARTIST REPRESENTATIVE [facility] Specimen Type Arterial 09/13/2023 12:34 PM ARTIST REPRESENTATIVE [facility] Blood BLOOD SPECIMEN / Unknown 09/13/2023 8:07 AM ARTIST REPRESENTATIVE 09/13/2023 12:34 PM ARTIST REPRESENTATIVE Myah Roberts LAB - POINT OF CARE ORDERABLES Performing Organization Address City/[facility]/ZIP Co de Phone Number [address] [address], [place] [phone] * GLUCOSE - POINT OF CARE (09/13/2023 5:34 AM ARTIST REPRESENTATIVE) Pathologist [facility] Glucose WB/POC 94 70 - 115 mg/dL 09/13/2023 5:36 AM [facility] Specimen Type Cap Fingerstick 2022 5:36 AM [facility] Blood BLOOD SPECIMEN / Unknown 09/13/2023 5:34 AM ARTIST REPRESENTATIVE 09/13/2023 5:36 AM ARTIST REPRESENTATIVE Myah Roberts LAB - POINT OF CARE ORDERABLES Performing Organization Address City/[facility]/ZIP Co de Phone Number [address] [address], [place] [phone] * (ABNORMAL) DIFFERENTIAL MANUAL (09/12/2023 8:46 PM ARTIST REPRESENTATIVE) Pathologist [facility] Neutrophil % 4(L) 41 - 74 % 09/12/2023 10:00 PM [facility] Lymphocyte % 96(H) 17 - 47 % 09/12/2023 10:00 PM [facility] Neutrophil Absolute 0.02(L) 1.60 - 7.50 x10E9/L 09/12/2023 10:00 PM [facility] Lymphocyte Absolute 0.48(L) 1.00 - 4.40 x10E9/L 09/12/2023 10:00 PM [facility] RBC Morphology REVIEWED 09/12/2023 10:00 PM [facility] Schistocytes FEW(A) (none) 09/12/2023 10:00 PM [facility] Stomatocytes MODERATE(A) (none) 09/12/2023 10:00 PM [facility] Blood BLOOD SPECIMEN / Unknown Venipuncture / Unknown 09/12/2023 8:46 PM ARTIST REPRESENTATIVE 09/12/2023 8:55 PM ARTIST REPRESENTATIVE Cheryl Cronin MD LAB - HEMATOLOGY ORD ERABLES [address] [address], [place] [phone] * TYPE + SCREEN PANEL (09/12/2023 8:46 PM ARTIST REPRESENTATIVE) [facility] Antibody Screen NEG 9:53 PM ARTIST REPRESENTATIVE [facility] ABO Rh O POS 09/12/2023 9:53 PM ARTIST REPRESENTATIVE [facility] Blood Bank BLOOD SPECIMEN / Unknown Venipuncture / Unknown 09/12/2023 8:46 PM ARTIST REPRESENTATIVE 09/12/2023 8:54 PM ARTIST REPRESENTATIVE Myah Roberts DO [facility] - BLOOD BANK ORD ERABLES Performing Organization Address City/[facility]/ZIP Co de Phone Number [facility] [address] [place] [address], [place] [phone] * (ABNORMAL) RETIC COUNT (09/12/2023 8:46 PM ARTIST REPRESENTATIVE) [facility] Reticulocyte Percent 0.38(L) 0.50 - 2.40 % 09/12/2023 10:01 PM [facility] Reticulocyte Absolute 0.0082(L) 0.0200 - 0.1100 x10E6/uL 09/12/2023 10:01 PM [facility] Ret-HE 36.4 29.0 - 37.9 pg 09/12/2023 10:01 PM [facility] Immature Reticulocyte Fraction 0.9(L) 1.8 - 15.2 % 09/12/2023 10:01 PM [facility] Blood BLOOD SPECIMEN / Unknown Venipuncture / Unknown 09/12/2023 8:46 PM ARTIST REPRESENTATIVE 09/12/2023 8:55 PM ARTIST REPRESENTATIVE Myah Roberts DO LAB - HEMATOLOGY ORD ERABLES [facility] [address] [place] [address], [place] [phone] * (ABNORMAL) PTT [facility] (09/12/2023 8:46 PM ARTIST REPRESENTATIVE) APTT 20.9(L) 23.0 - 38.4 Seconds 09/12/2023 9:23 PM ARTIST REPRESENTATIVE [facility] Comment:Suggested therapeuti c range for full dose I.V. unfractionated heparin therapy for venous thromboembolism is 71 to 109 seconds. Blood BLOOD SPECIMEN / Unknown Venipuncture / Unknown 09/12/2023 8:46 PM ARTIST REPRESENTATIVE 09/12/2023 8:56 PM ARTIST REPRESENTATIVE Myah Roberts DO LAB - COAGULATION OR DERABLES Performing Organization Address [facility] Co de Phone Number [facility] [address] [place] [address], [place] [phone] * PT-INR [facility] (09/12/2023 8:46 PM ARTIST REPRESENTATIVE) PT 13.6 12.1 - 14.8 Seconds 09/12/2023 9:23 PM ARTIST REPRESENTATIVE [facility] INR 1.1 See Comment 09/12/2023 9:23 PM ARTIST REPRESENTATIVE [facility] Comment:The suggested therap eutic range for standard coumadin (warfarin) therapy is an INR of 2.0-3.0. For high-risk patients (Mechanical Mitral Valve Prosthesis, etc.), the suggested prophylactic therapeutic range is an INR of 2.5-3.5. Blood BLOOD SPECIMEN / Unknown Venipuncture / Unknown 09/12/2023 8:46 PM ARTIST REPRESENTATIVE 09/12/2023 8:56 PM ARTIST REPRESENTATIVE Myah Roberts DO LAB - COAGULATION OR DERABLES Performing Organization Address [facility]/ZIP Co de Phone Number [facility] [address] [place] [address], [place] [phone] * (ABNORMAL) LDH BLOOD (09/12/2023 8:46 PM ARTIST REPRESENTATIVE) LDH Total 276(H) 125 - 243 Units/L 09/12/2023 9:28 PM ARTIST REPRESENTATIVE [facility] Blood BLOOD SPECIMEN / Unknown Venipuncture / Unknown 09/12/2023 8:46 PM ARTIST REPRESENTATIVE 09/12/2023 8:57 PM ARTIST REPRESENTATIVE Myah Roberts DO LAB - CHEMISTRY JON NAIDU Performing Organization Address City/[facility]/ZIP Co de Phone Number [address] [address], [place] [phone] * (ABNORMAL) HAPTOGLOBIN (09/12/2023 8:46 PM ARTIST REPRESENTATIVE) [facility] Haptoglobin 262(H) 14 - 258 mg/dL 09/12/2023 9:30 PM ARTIST REPRESENTATIVE [facility] Comment:Result obtained by jose de jesus ashby. Blood BLOOD SPECIMEN / Unknown Venipuncture / Unknown 09/12/2023 8:46 PM ARTIST REPRESENTATIVE 09/12/2023 8:54 PM ARTIST REPRESENTATIVE Myah Roberts DO LAB - CHEMISTRY JON NAIDU Performing Organization Address [facility]/ZIP Co de Phone Number [address] [address], [place] [phone] * (ABNORMAL) FIBRINOGEN ACTIVITY (09/12/2023 8:46 PM ARTIST REPRESENTATIVE) [facility] Fibrinogen Clauss 187(L) 200 - 400 mg/dL 09/12/2023 9:24 PM ARTIST REPRESENTATIVE [facility] Blood BLOOD SPECIMEN / Unknown Venipuncture / Unknown 09/12/2023 8:46 PM ARTIST REPRESENTATIVE 09/12/2023 8:56 PM ARTIST REPRESENTATIVE Myah Roberts DO LAB - COAGULATION OR DERABLES Performing Organization Address City/[facility]/ZIP Co de Phone Number [address] [address], [place] [phone] * (ABNORMAL) D-DIMER (09/12/2023 8:46 PM ARTIST REPRESENTATIVE) [facility] D-Dimer Quantitative 2.24(H) <=0.50 mcg/mL FEU 09/12/2023 9:34 PM [facility] Comment: In the absence of clinical [...] BLOOD SPECIMEN / Unknown Venipuncture / Unknown 09/12/2023 8:46 PM ARTIST REPRESENTATIVE 09/12/2023 8:56 PM ARTIST REPRESENTATIVE Myah Roberts DO LAB - COAGULATION OR DERABLES [facility] [address] [place] [address], [facility] [phone] * URIC ACID BLOOD (09/12/2023 8:46 PM ARTIST REPRESENTATIVE) Uric Acid 2.9 2.6 - 6.0 mg/dL 09/12/2023 9:28 PM ARTIST REPRESENTATIVE [facility] Blood BLOOD SPECIMEN / Unknown Venipuncture / Unknown 09/12/2023 8:46 PM ARTIST REPRESENTATIVE 09/12/2023 8:57 PM ARTIST REPRESENTATIVE Cheryl Cronin MD LAB - CHEMISTRY JON NAIDU [facility] [address] [place] [address], [facility] [phone] * (ABNORMAL) COMPREHENSIVE METABOLIC PANEL (09/12/2023 8:46 PM ARTIST REPRESENTATIVE) BUN 12 7 - 26 mg/dL 09/12/2023 9:28 PM [facility] Creatinine 0.66 0.56 - 0.96 mg/dL 09/12/2023 9:28 PM [facility] Sodium 141 136 - 145 mmol/L 09/12/2023 9:28 PM [facility] Potassium 3.4(L) 3.5 - 4.5 mmol/L 09/12/2023 9:28 PM [facility] Chloride 112(H) 98 - 107 mmol/L 09/12/2023 9:28 PM [facility] CO2 24 22 - 29 mmol/L 09/12/2023 9:28 PM [facility] Glucose 119(H) 70 - 115 mg/dL 09/12/2023 9:28 PM [facility] Calcium 8.0(L) 8.4 - 10.2 mg/dL 09/12/2023 9:28 PM [facility] Protein Total 5.6(L) 6.0 - 8.3 g/dL 09/12/2023 9:28 PM [facility] Albumin 2.8(L) 3.4 - 5.0 g/dL 09/12/2023 9:28 PM [facility] Bilirubin Total 0.4 0.2 - 1.2 mg/dL 09/12/2023 9:28 PM [facility] Alkaline Phosphatase 46 40 - 150 U/L 09/12/2023 9:28 PM [facility] ALT 47 5 - 55 U/L 09/12/2023 9:28 PM [facility] AST 19 5 - 34 U/L 09/12/2023 9:28 PM [facility] Anion Gap 5(L) 6 - 16 09/12/2023 9:28 PM [facility] BUN/Creatinine Ratio 18 7 - 23 09/12/2023 9:28 PM [facility] Osmolality Calculated 293 275 - 295 mOsm/kg 09/12/2023 9:28 PM [facility] Albumin/Globulin Ratio 1.0(L) 1.1 - 2.3 09/12/2023 9:28 PM [facility] eGFR by CKD-EPI >90 >=90 mL/min/1.7 3 m2 09/12/2023 9:28 PM [facility] Blood BLOOD SPECIMEN / Unknown Venipuncture / Unknown 09/12/2023 8:46 PM ARTIST REPRESENTATIVE 09/12/2023 8:57 PM ARTIST REPRESENTATIVE Cheryl Cronin MD LAB - CHEMISTRY ORDE ELYSIA [facility] [address] [place] [address], [facility] [phone] * (ABNORMAL) CBC W AUTO DIFFERENTIAL (09/12/2023 8:46 PM ARTIST REPRESENTATIVE) WBC 0.5(LL) 4.0 - 10.7 x10E9/L 09/12/2023 10:01 PM [facility] RBC Count 2.17(L) 3.90 - 5.20 x10E12/L 09/12/2023 10:01 PM [facility] Hemoglobin 7.0(L) 11.9 - 15.8 g/dL 09/12/2023 10:01 PM [facility] Hematocrit 19.2(L) 34.8 - 46.1 % 09/12/2023 10:01 PM [facility] MCV 88.5 80.0 - 98.0 fL 09/12/2023 10:01 PM [facility] MCH 32.3 26.7 - 33.6 pg 09/12/2023 10:01 PM [facility] MCHC 36.5(H) 31.7 - 36.3 g/dL 09/12/2023 10:01 PM [facility] RDW-CV 13.3 11.3 - 14.8 % 09/12/2023 10:01 PM [facility] Platelet Count 13(LL) 150 - 420 x10E9/L 09/12/2023 10:01 PM [facility] MPV 12.7(H) 7.8 - 11.4 fL 09/12/2023 10:01 PM [facility] Preliminary Absolute Neutrophil 0.06(L) 1.60 - 7.50 x10E9/L 09/12/2023 10:01 PM [facility] Blood BLOOD SPECIMEN / Unknown Venipuncture / Unknown 09/12/2023 8:46 PM ARTIST REPRESENTATIVE 09/12/2023 8:55 PM ARTIST REPRESENTATIVE Cheryl Cronin MD LAB - HEMATOLOGY ORD ERABLES [address] [address], [place] [phone] * (ABNORMAL) GLUCOSE - POINT OF CARE (09/12/2023 7:32 PM ARTIST REPRESENTATIVE) Glucose WB/POC 153(H) 70 - 115 mg/dL 09/12/2023 7:40 PM [facility] Specimen Type Cap Fingerstick 2022 7:40 PM [facility] Blood BLOOD SPECIMEN / Unknown 09/12/2023 7:32 PM ARTIST REPRESENTATIVE 09/12/2023 7:40 PM ARTIST REPRESENTATIVE Myah Roberts DO LAB - POINT OF CARE ORDERABLES [facility] [address] [place] [address], [place] [phone] * GLUCOSE - POINT OF CARE (09/12/2023 4:27 PM ARTIST REPRESENTATIVE) Glucose WB/POC 92 70 - 115 mg/dL 09/12/2023 4:32 PM [facility] Specimen Type Arterial 09/12/2023 4:32 PM [facility] Blood BLOOD SPECIMEN / Unknown 09/12/2023 4:27 PM ARTIST REPRESENTATIVE 09/12/2023 4:32 PM ARTIST REPRESENTATIVE Myah Roberts LAB - POINT OF CARE ORDERABLES Performing Organization Address City/[facility]/ZIP Co de Phone Number [address] [address], [place] [phone] * GLUCOSE - POINT OF CARE (09/12/2023 11:20 AM ARTIST REPRESENTATIVE) Glucose WB/POC 101 70 - 115 mg/dL 09/12/2023 4:38 PM ARTIST REPRESENTATIVE [facility] Specimen Type Arterial 09/12/2023 4:38 PM ARTIST REPRESENTATIVE [facility] Blood BLOOD SPECIMEN / Unknown 09/12/2023 11:20 AM ARTIST REPRESENTATIVE 09/12/2023 4:38 PM ARTIST REPRESENTATIVE Myah Roberts LAB - POINT OF CARE ORDERABLES Performing Organization Address [facility]/ZIP Co de Phone Number [address] [address], [place] [phone] * GLUCOSE - POINT OF CARE (09/12/2023 7:46 AM ARTIST REPRESENTATIVE) Glucose WB/POC 78 70 - 115 mg/dL 09/12/2023 4:38 PM ARTIST REPRESENTATIVE [facility] Specimen Type Arterial 09/12/2023 4:38 PM ARTIST REPRESENTATIVE [facility] Blood BLOOD SPECIMEN / Unknown 09/12/2023 7:46 AM ARTIST REPRESENTATIVE 09/12/2023 4:38 PM ARTIST REPRESENTATIVE Myah Rodríguez brandon LAB - POINT OF CARE ORDERABLES Performing Organization Address City/[facility]/ZIP Co de Phone Number [address] [address], [place] [phone] * (ABNORMAL) GLUCOSE - POINT OF CARE (09/11/2023 8:23 PM ARTIST REPRESENTATIVE) Glucose WB/POC 154(H) 70 - 115 mg/dL 09/11/2023 8:25 PM ARTIST REPRESENTATIVE [facility] Specimen Type Cap Fingerstick 2022 8:25 PM [facility] Blood BLOOD SPECIMEN / Unknown 09/11/2023 8:23 PM ARTIST REPRESENTATIVE 09/11/2023 8:25 PM ARTIST REPRESENTATIVE Myah Roberts DO LAB - POINT OF CARE ORDERABLES [facility] [address] [place] [phone], [facility] [phone] * (ABNORMAL) DIFFERENTIAL MANUAL (09/11/2023 8:02 PM ARTIST REPRESENTATIVE) Neutrophil % 16(L) 41 - 74 % 09/11/2023 10:10 PM [facility] Lymphocyte % 80(H) 17 - 47 % 09/11/2023 10:10 PM [facility] Monocyte % 4 3 - 11 % 09/11/2023 10:10 PM [facility] Neutrophil Absolute 0.08(L) 1.60 - 7.50 x10E9/L 09/11/2023 10:10 PM [facility] Lymphocyte Absolute 0.40(L) 1.00 - 4.40 x10E9/L 09/11/2023 10:10 PM [facility] Monocyte Absolute 0.02(L) 0.15 - 1.00 x10E9/L 09/11/2023 10:10 PM [facility] RBC Morphology NORMAL 09/11/2023 10:10 PM [facility] Blood BLOOD SPECIMEN / Unknown Venipuncture / Unknown 09/11/2023 8:02 PM ARTIST REPRESENTATIVE 09/11/2023 8:33 PM ARTIST REPRESENTATIVE Cheryl Cronin MD LAB - HEMATOLOGY ORD ERABLES [facility] [address] [place] [address], [facility] [phone] * (ABNORMAL) RETIC COUNT (09/11/2023 8:02 PM ARTIST REPRESENTATIVE) Reticulocyte Percent 0.55 0.50 - 2.40 % 09/11/2023 8:53 PM [facility] Reticulocyte Absolute 0.0118(L) 0.0200 - 0.1100 x10E6/uL 09/11/2023 8:53 PM [facility] Ret-HE 38.0(H) 29.0 - 37.9 pg 09/11/2023 8:53 PM [facility] Immature Reticulocyte Fraction 0.6(L) 1.8 - 15.2 % 09/11/2023 8:53 PM [facility] Blood BLOOD SPECIMEN / Unknown Venipuncture / Unknown 09/11/2023 8:02 PM ARTIST REPRESENTATIVE 09/11/2023 8:33 PM ARTIST REPRESENTATIVE Myah Roberts DO LAB - HEMATOLOGY ORD ERABLES Performing Organization Address [facility]/ZIP Co de Phone Number [address] [address], [facility] [phone] * (ABNORMAL) PTT [facility] (09/11/2023 8:02 PM ARTIST REPRESENTATIVE) APTT 21.9(L) 23.0 - 38.4 Seconds 09/11/2023 8:54 PM [facility] Comment:Suggested therapeuti c range for full dose I.V. unfractionated heparin therapy for venous thromboembolism is 71 to 109 seconds. Blood BLOOD SPECIMEN / Unknown Venipuncture / Unknown 09/11/2023 8:02 PM ARTIST REPRESENTATIVE 09/11/2023 8:10 PM ARTIST REPRESENTATIVE Myah Roberts DO LAB - COAGULATION OR DERABLES Performing Organization Address [facility]/ZIP Co de Phone Number [address] [address], [place] [phone] * PT-INR [facility] (09/11/2023 8:02 PM ARTIST REPRESENTATIVE) PT 14.4 12.1 - 14.8 Seconds 09/11/2023 8:54 PM [facility] INR 1.2 See Comment 09/11/2023 8:54 PM [facility] Comment:The suggested therap eutic range for standard coumadin (warfarin) therapy is an INR of 2.0-3.0. For high-risk patients (Mechanical Mitral Valve Prosthesis, etc.), the suggested prophylactic therapeutic range is an INR of 2.5-3.5. Blood BLOOD SPECIMEN / Unknown Venipuncture / Unknown 09/11/2023 8:02 PM ARTIST REPRESENTATIVE 09/11/2023 8:10 PM ARTIST REPRESENTATIVE Myah Roberts DO LAB - COAGULATION OR DERABLES Performing Organization Address City/[facility]/ZIP Co de Phone Number [address] [address], [facility] [phone] * (ABNORMAL) LDH BLOOD (09/11/2023 8:02 PM ARTIST REPRESENTATIVE) Pathologist [facility] LDH Total 300(H) 125 - 243 Units/L 09/11/2023 9:03 PM ARTIST REPRESENTATIVE [facility] Blood BLOOD SPECIMEN / Unknown Venipuncture / Unknown 09/11/2023 8:02 PM ARTIST REPRESENTATIVE 09/11/2023 8:32 PM ARTIST REPRESENTATIVE Myah Roberts DO LAB - CHEMISTRY ORDE RABQI Performing Organization Address [facility] Co de Phone Number [address] [address], [place] [phone] * (ABNORMAL) HAPTOGLOBIN (09/11/2023 8:02 PM ARTIST REPRESENTATIVE) Pathologist [facility] Haptoglobin 261(H) 14 - 258 mg/dL 09/11/2023 10:59 PM ARTIST REPRESENTATIVE [facility] Comment:Result obtained by jose de jesus ashby. Blood BLOOD SPECIMEN / Unknown Venipuncture / Unknown 09/11/2023 8:02 PM ARTIST REPRESENTATIVE 09/11/2023 8:10 PM ARTIST REPRESENTATIVE Myah Roberts LAB - CHEMISTRY ORDE ELYSIA Performing Organization Address [facility] Co de Phone Number [address] [address], [place] [phone] * (ABNORMAL) FIBRINOGEN ACTIVITY (09/11/2023 8:02 PM ARTIST REPRESENTATIVE) Pathologist [facility] Fibrinogen Clauss 156(L) 200 - 400 mg/dL 09/11/2023 8:55 PM ARTIST REPRESENTATIVE [facility] Blood BLOOD SPECIMEN / Unknown Venipuncture / Unknown 09/11/2023 8:02 PM ARTIST REPRESENTATIVE 09/11/2023 8:10 PM ARTIST REPRESENTATIVE Myah Roberts DO LAB - COAGULATION OR DERABLES Performing Organization Address City/State/[facility] de Phone Number [facility] [address] [place] [address], [facility] [phone] * (ABNORMAL) D-DIMER (09/11/2023 8:02 PM ARTIST REPRESENTATIVE) D-Dimer Quantitative 2.92(H) <=0.50 mcg/mL FEU 09/11/2023 8:56 PM ARTIST REPRESENTATIVE [facility] Comment: In the absence of clinical [...] BLOOD SPECIMEN / Unknown Venipuncture / Unknown 09/11/2023 8:02 PM ARTIST REPRESENTATIVE 09/11/2023 8:10 PM ARTIST REPRESENTATIVE Myah Roberts DO LAB - COAGULATION OR DERABLES Performing Organization Address City/[facility]/ZIP Co de Phone Number [address] [address], [facility] [phone] * (ABNORMAL) URIC ACID BLOOD (09/11/2023 8:02 PM ARTIST REPRESENTATIVE) Uric Acid 2.4(L) 2.6 - 6.0 mg/dL 09/11/2023 9:48 PM [facility] Blood BLOOD SPECIMEN / Unknown Venipuncture / Unknown 09/11/2023 8:02 PM ARTIST REPRESENTATIVE 09/11/2023 8:32 PM ARTIST REPRESENTATIVE Cheryl Cronin MD LAB - CHEMISTRY JON NAIDU Performing Organization Address [facility]/ZIP Co de Phone Number [address] [address], [facility] [phone] * (ABNORMAL) COMPREHENSIVE METABOLIC PANEL (09/11/2023 8:02 PM ARTIST REPRESENTATIVE) BUN 13 7 - 26 mg/dL 09/11/2023 9:06 PM [facility] Creatinine 0.69 0.56 - 0.96 mg/dL 09/11/2023 9:06 PM [facility] Sodium 140 136 - 145 mmol/L 09/11/2023 9:06 PM [facility] Potassium 3.6 3.5 - 4.5 mmol/L 09/11/2023 9:06 PM [facility] Chloride 112(H) 98 - 107 mmol/L 09/11/2023 9:06 PM [facility] CO2 24 22 - 29 mmol/L 09/11/2023 9:06 PM [facility] Glucose 158(H) 70 - 115 mg/dL 09/11/2023 9:06 PM [facility] Calcium 8.2(L) 8.4 - 10.2 mg/dL 09/11/2023 9:06 PM [facility] Protein Total 5.9(L) 6.0 - 8.3 g/dL 09/11/2023 9:06 PM [facility] Albumin 3.0(L) 3.4 - 5.0 g/dL 09/11/2023 9:06 PM [facility] Bilirubin Total 0.5 0.2 - 1.2 mg/dL 09/11/2023 9:06 PM [facility] Alkaline Phosphatase 44 40 - 150 U/L 09/11/2023 9:06 PM [facility] ALT 57(H) 5 - 55 U/L 09/11/2023 9:06 PM [facility] AST 19 5 - 34 U/L 09/11/2023 9:06 PM [facility] Anion Gap 4(L) 6 - 16 09/11/2023 9:06 PM [facility] BUN/Creatinine Ratio 19 7 - 23 09/11/2023 9:06 PM [facility] Osmolality Calculated 293 275 - 295 mOsm/kg 09/11/2023 9:06 PM [facility] Albumin/Globulin Ratio 1.0(L) 1.1 - 2.3 09/11/2023 9:06 PM [facility] eGFR by CKD-EPI >90 >=90 mL/min/1.7 3 m2 09/11/2023 9:06 PM [facility] Blood BLOOD SPECIMEN / Unknown Venipuncture / Unknown 09/11/2023 8:02 PM ARTIST REPRESENTATIVE 09/11/2023 8:32 PM [facility] Cheryl Cronin MD LAB - CHEMISTRY JON NAIDU [facility] Organization Address City/State/[facility] Co de Phone Number [facility] [address] [place] [phone], [facility] [phone] * (ABNORMAL) CBC W AUTO DIFFERENTIAL (09/11/2023 8:02 PM [facility]) WBC 0.5(LL) 4.0 - 10.7 x10E9/L 09/11/2023 10:10 PM [facility] RBC Count 2.16(L) 3.90 - 5.20 x10E12/L 09/11/2023 10:10 PM [facility] Hemoglobin 7.0(L) 11.9 - 15.8 g/dL 09/11/2023 10:10 PM [facility] Hematocrit 19.3(L) 34.8 - 46.1 % 09/11/2023 10:10 PM [facility] MCV 89.4 80.0 - 98.0 fL 09/11/2023 10:10 PM [facility] MCH 32.4 26.7 - 33.6 pg 09/11/2023 10:10 PM [facility] MCHC 36.3 31.7 - 36.3 g/dL 09/11/2023 10:10 PM [facility] RDW-CV 13.5 11.3 - 14.8 % 09/11/2023 10:10 PM [facility] Platelet Count 16(LL) 150 - 420 x10E9/L 09/11/2023 10:10 PM [facility] Comment:platelet count verif ied by slide review MPV 12.0(H) 7.8 - 11.4 fL 09/11/2023 10:10 PM [facility] Preliminary Absolute Neutrophil 0.08(L) 1.60 - 7.50 x10E9/L 09/11/2023 10:10 PM [facility] Blood BLOOD SPECIMEN / Unknown Venipuncture / Unknown 09/11/2023 8:02 PM ARTIST REPRESENTATIVE 09/11/2023 8:33 PM ARTIST REPRESENTATIVE Cheryl Cronin MD LAB - HEMATOLOGY ORD ERABLES Performing Organization Address City/State/[facility] Co de Phone Number [address] [phone], [facility] [phone] * (ABNORMAL) GLUCOSE - POINT OF CARE (09/11/2023 4:41 PM ARTIST REPRESENTATIVE) Glucose WB/POC 198(H) 70 - 115 mg/dL 09/11/2023 8:10 PM [facility] Specimen Type Arterial 09/11/2023 8:10 PM [facility] Blood BLOOD SPECIMEN / Unknown 09/11/2023 4:41 PM ARTIST REPRESENTATIVE 09/11/2023 8:10 PM ARTIST REPRESENTATIVE Myah Rodríguez Armando LAB - POINT OF CARE ORDERABLES Performing Organization Address City/[facility]/ZIP Co de Phone Number [address] [address], [place] [phone] * GLUCOSE - POINT OF CARE (09/11/2023 12:42 PM ARTIST REPRESENTATIVE) Glucose WB/POC 97 70 - 115 mg/dL 09/11/2023 8:10 PM ARTIST REPRESENTATIVE [facility] Specimen Type Arterial 09/11/2023 8:10 PM ARTIST REPRESENTATIVE [facility] Blood BLOOD SPECIMEN / Unknown 09/11/2023 12:42 PM ARTIST REPRESENTATIVE 09/11/2023 8:10 PM ARTIST REPRESENTATIVE Myah Roberts DO LAB - POINT OF CARE ORDERABLES Performing Organization Address [facility]/ZIP Co de Phone Number [address] [address], [place] [phone] * (ABNORMAL) URIC ACID BLOOD (09/10/2023 9:11 PM ARTIST REPRESENTATIVE) Uric Acid 2.3(L) 2.6 - 6.0 mg/dL 09/10/2023 9:58 PM [facility] Blood BLOOD SPECIMEN / Unknown Venipuncture / Unknown 09/10/2023 9:11 PM ARTIST REPRESENTATIVE 09/10/2023 9:30 PM ARTIST REPRESENTATIVE Cheryl Cronin MD LAB - CHEMISTRY JON NAIDU [address] [address], [place] [phone] * (ABNORMAL) COMPREHENSIVE METABOLIC PANEL (09/10/2023 9:11 PM ARTIST REPRESENTATIVE) BUN 11 7 - 26 mg/dL 09/10/2023 9:58 PM ARTIST REPRESENTATIVE [facility] Creatinine 0.61 0.56 - 0.96 mg/dL 09/10/2023 9:58 PM ARTIST REPRESENTATIVE [facility] Sodium 141 136 - 145 mmol/L 09/10/2023 9:58 PM [facility] Potassium 4.1 3.5 - 4.5 mmol/L 09/10/2023 9:58 PM [facility] Chloride 114(H) 98 - 107 mmol/L 09/10/2023 9:58 PM [facility] CO2 22 22 - 29 mmol/L 09/10/2023 9:58 PM [facility] Glucose 274(H) 70 - 115 mg/dL 09/10/2023 9:58 PM [facility] Calcium 8.0(L) 8.4 - 10.2 mg/dL 09/10/2023 9:58 PM [facility] Protein Total 6.0 6.0 - 8.3 g/dL 09/10/2023 9:58 PM [facility] Albumin 2.9(L) 3.4 - 5.0 g/dL 09/10/2023 9:58 PM [facility] Bilirubin Total 0.4 0.2 - 1.2 mg/dL 09/10/2023 9:58 PM [facility] Alkaline Phosphatase 53 40 - 150 U/L 09/10/2023 9:58 PM [facility] ALT 68(H) 5 - 55 U/L 09/10/2023 9:58 PM [facility] AST 36(H) 5 - 34 U/L 09/10/2023 9:58 PM [facility] Anion Gap 5(L) 6 - 16 09/10/2023 9:58 PM [facility] BUN/Creatinine Ratio 18 7 - 23 09/10/2023 9:58 PM [facility] Osmolality Calculated 301(H) 275 - 295 mOsm/kg 09/10/2023 9:58 PM [facility] Albumin/Globulin Ratio 0.9(L) 1.1 - 2.3 09/10/2023 9:58 PM [facility] eGFR by CKD-EPI >90 >=90 mL/min/1.7 3 m2 09/10/2023 9:58 PM [facility] Blood BLOOD SPECIMEN / Unknown Venipuncture / Unknown 09/10/2023 9:11 PM ARTIST REPRESENTATIVE 09/10/2023 9:30 PM ARTIST REPRESENTATIVE Cheryl Cronin MD LAB - CHEMISTRY ORDE RABQI Performing Organization Address City/[facility]/ZIP Co de Phone Number [facility] [address] [place] [address], [facility] [phone] * (ABNORMAL) CBC W AUTO DIFFERENTIAL (09/10/2023 9:11 PM ARTIST REPRESENTATIVE) WBC 0.2(LL) 4.0 - 10.7 x10E9/L 09/11/2023 2:28 AM [facility] RBC Count 2.21(L) 3.90 - 5.20 x10E12/L 09/11/2023 2:28 AM [facility] Hemoglobin 7.1(L) 11.9 - 15.8 g/dL 09/11/2023 2:28 AM [facility] Hematocrit 19.9(L) 34.8 - 46.1 % 09/11/2023 2:28 AM [facility] MCV 90.0 80.0 - 98.0 fL 09/11/2023 2:28 AM [facility] MCH 32.1 26.7 - 33.6 pg 09/11/2023 2:28 AM [facility] MCHC 35.7 31.7 - 36.3 g/dL 09/11/2023 2:28 AM [facility] RDW-CV 14.3 11.3 - 14.8 % 09/11/2023 2:28 AM [facility] Platelet Count 15(LL) 150 - 420 x10E9/L 09/11/2023 2:28 AM [facility] Preliminary Absolute Neutrophil 0.10(L) 1.60 - 7.50 x10E9/L 09/11/2023 2:28 AM [facility] Blood BLOOD SPECIMEN / Unknown Venipuncture / Unknown 09/10/2023 9:11 PM ARTIST REPRESENTATIVE 09/10/2023 9:30 PM ARTIST REPRESENTATIVE Cheryl Cronin MD LAB - HEMATOLOGY ORD ERABLES [facility] [address] [place] [address], [facility] [phone] * (ABNORMAL) URIC ACID BLOOD (09/09/2023 9:38 PM ARTIST REPRESENTATIVE) Uric Acid 2.3(L) 2.6 - 6.0 mg/dL 09/09/2023 10:20 PM [facility] Blood BLOOD SPECIMEN / Unknown Venipuncture / Unknown 09/09/2023 9:38 PM ARTIST REPRESENTATIVE 09/09/2023 9:45 PM ARTIST REPRESENTATIVE Cheryl Cronin MD LAB - CHEMISTRY JON NAIDU [address] [address], [facility] [phone] * (ABNORMAL) HAPTOGLOBIN (09/09/2023 9:38 PM ARTIST REPRESENTATIVE) [facility] Haptoglobin 262(H) 14 - 258 mg/dL 09/09/2023 10:38 PM [facility] Comment:Result obtained by jose de jesus ashby. Blood BLOOD SPECIMEN / Unknown Venipuncture / Unknown 09/09/2023 9:38 PM ARTIST REPRESENTATIVE 09/09/2023 9:42 PM ARTIST REPRESENTATIVE Cheryl Cronin MD LAB - CHEMISTRY JON NAIDU Performing Organization Address City/[facility]/ZIP Co de Phone Number [address] [address], [place] [phone] * (ABNORMAL) RETIC COUNT (09/09/2023 9:38 PM ARTIST REPRESENTATIVE) Pathologist [facility] Reticulocyte Percent 0.67 0.50 - 2.40 % 09/10/2023 1:27 AM [facility] Reticulocyte Absolute 0.0151(L) 0.0200 - 0.1100 x10E6/uL 09/10/2023 1:27 AM [facility] Ret-HE 39.8(H) 29.0 - 37.9 pg 09/10/2023 1:27 AM [facility] Immature Reticulocyte Fraction 1.9 1.8 - 15.2 % 09/10/2023 1:27 AM ARTIST REPRESENTATIVE [facility] Blood BLOOD SPECIMEN / Unknown Venipuncture / Unknown 09/09/2023 9:38 PM ARTIST REPRESENTATIVE 09/09/2023 9:45 PM ARTIST REPRESENTATIVE Cheryl Cronin MD LAB - HEMATOLOGY ORD ERABLES Performing Organization Address [facility]/ZIP Co de Phone Number [address] [address], [place] [phone] * (ABNORMAL) LDH BLOOD (09/09/2023 9:38 PM ARTIST REPRESENTATIVE) Pathologist [facility] LDH Total 326(H) 125 - 243 Units/L 09/09/2023 10:13 PM ARTIST REPRESENTATIVE [facility] Blood BLOOD SPECIMEN / Unknown Venipuncture / Unknown 09/09/2023 9:38 PM ARTIST REPRESENTATIVE 09/09/2023 9:45 PM ARTIST REPRESENTATIVE Cheryl Cronin MD LAB - CHEMISTRY ORDE RABLES Performing Organization Address [facility]/ZIP Co de Phone Number [address] [address], [place] [phone] * (ABNORMAL) PTT [facility] (09/09/2023 9:38 PM ARTIST REPRESENTATIVE) [facility] APTT 21.3(L) 23.0 - 38.4 Seconds 09/09/2023 10:10 PM [facility] Comment:Suggested therapeuti c range for full dose I.V. unfractionated heparin therapy for venous thromboembolism is 71 to 109 seconds. Blood BLOOD SPECIMEN / Unknown Venipuncture / Unknown 09/09/2023 9:38 PM ARTIST REPRESENTATIVE 09/09/2023 9:46 PM ARTIST REPRESENTATIVE Cheryl Cronin MD LAB - COAGULATION OR DERABLES Performing Organization Address City/[facility]/ZIP Co de Phone Number [address] [address], [place] [phone] * PT-INR [facility] (09/09/2023 9:38 PM ARTIST REPRESENTATIVE) Pathologist [facility] PT 14.1 12.1 - 14.8 Seconds 09/09/2023 10:10 PM [facility] INR 1.1 See Comment 09/09/2023 10:10 PM [facility] Comment:The suggested therap eutic range for standard coumadin (warfarin) therapy is an INR of 2.0-3.0. For high-risk patients (Mechanical Mitral Valve Prosthesis, etc.), the suggested prophylactic therapeutic range is an INR of 2.5-3.5. Blood BLOOD SPECIMEN / Unknown Venipuncture / Unknown 09/09/2023 9:38 PM ARTIST REPRESENTATIVE 09/09/2023 9:46 PM ARTIST REPRESENTATIVE Cheryl Cronin MD LAB - COAGULATION OR DERABLES Performing Organization Address City/[facility]/ZIP Co de Phone Number [facility] [address] [place] [address], [facility] [phone] * FIBRINOGEN ACTIVITY (09/09/2023 9:38 PM ARTIST REPRESENTATIVE) [facility] Fibrinogen Clauss 205 200 - 400 mg/dL 09/09/2023 10:16 PM [facility] Blood BLOOD SPECIMEN / Unknown Venipuncture / Unknown 09/09/2023 9:38 PM ARTIST REPRESENTATIVE 09/09/2023 9:46 PM ARTIST REPRESENTATIVE Cheryl Cronin MD LAB - COAGULATION OR DERABLES Performing Organization Address [facility] Co de Phone Number [address] [address], [facility] [phone] * (ABNORMAL) D-DIMER (09/09/2023 9:38 PM ARTIST REPRESENTATIVE) [facility] D-Dimer Quantitative 3.42(H) <=0.50 mcg/mL FEU 09/09/2023 10:11 PM [facility] Comment: In the absence of clinical [...] SPECIMEN / Unknown Venipuncture / Unknown 09/09/2023 9:38 PM ARTIST REPRESENTATIVE 09/09/2023 9:46 PM ARTIST REPRESENTATIVE Cheryl Cronin MD LAB - COAGULATION OR DERABLES [facility] [address] [place] [address], [facility] [phone] * (ABNORMAL) COMPREHENSIVE METABOLIC PANEL (09/09/2023 9:38 PM ARTIST REPRESENTATIVE) BUN 11 7 - 26 mg/dL 09/09/2023 10:13 PM [facility] Creatinine 0.60 0.56 - 0.96 mg/dL 09/09/2023 10:13 PM [facility] Sodium 138 136 - 145 mmol/L 09/09/2023 10:13 PM [facility] Potassium 3.8 3.5 - 4.5 mmol/L 09/09/2023 10:13 PM [facility] Chloride 113(H) 98 - 107 mmol/L 09/09/2023 10:13 PM [facility] CO2 22 22 - 29 mmol/L 09/09/2023 10:13 PM ARTIST REPRESENTATIVE [facility] Glucose 232(H) 70 - 115 mg/dL 09/09/2023 10:13 PM [facility] Calcium 8.0(L) 8.4 - 10.2 mg/dL 09/09/2023 10:13 PM [facility] Protein Total 5.9(L) 6.0 - 8.3 g/dL 09/09/2023 10:13 PM [facility] Albumin 2.8(L) 3.4 - 5.0 g/dL 09/09/2023 10:13 PM [facility] Bilirubin Total 0.4 0.2 - 1.2 mg/dL 09/09/2023 10:13 PM [facility] Alkaline Phosphatase 56 40 - 150 U/L 09/09/2023 10:13 PM [facility] ALT 71(H) 5 - 55 U/L 09/09/2023 10:13 PM [facility] AST 46(H) 5 - 34 U/L 09/09/2023 10:13 PM [facility] Anion Gap 3(L) 6 - 16 09/09/2023 10:13 PM [facility] BUN/Creatinine Ratio 18 7 - 23 09/09/2023 10:13 PM [facility] Osmolality Calculated 293 275 - 295 mOsm/kg 09/09/2023 10:13 PM [facility] Albumin/Globulin Ratio 0.9(L) 1.1 - 2.3 09/09/2023 10:13 PM [facility] eGFR by CKD-EPI >90 >=90 mL/min/1.7 3 m2 09/09/2023 10:13 PM [facility] Blood BLOOD SPECIMEN / Unknown Venipuncture / Unknown 09/09/2023 9:38 PM ARTIST REPRESENTATIVE 09/09/2023 9:45 PM ARTIST REPRESENTATIVE Cheryl Cronin MD LAB - CHEMISTRY JON NAIDU [facility] [address] [place] [address], [facility] [phone] * (ABNORMAL) CBC W AUTO DIFFERENTIAL (09/09/2023 9:38 PM ARTIST REPRESENTATIVE) WBC 0.3(LL) 4.0 - 10.7 x10E9/L 09/10/2023 1:26 AM [facility] RBC Count 2.26(L) 3.90 - 5.20 x10E12/L 09/10/2023 1:26 AM [facility] Hemoglobin 7.3(L) 11.9 - 15.8 g/dL 09/10/2023 1:26 AM [facility] Hematocrit 20.2(L) 34.8 - 46.1 % 09/10/2023 1:26 AM [facility] MCV 89.4 80.0 - 98.0 fL 09/10/2023 1:26 AM [facility] MCH 32.3 26.7 - 33.6 pg 09/10/2023 1:26 AM [facility] MCHC 36.1 31.7 - 36.3 g/dL 09/10/2023 1:26 AM [facility] RDW-CV 14.5 11.3 - 14.8 % 09/10/2023 1:26 AM [facility] Platelet Count 17(LL) 150 - 420 x10E9/L 09/10/2023 1:26 AM [facility] MPV 11.6(H) 7.8 - 11.4 fL 09/10/2023 1:26 AM [facility] Preliminary Absolute Neutrophil 0.17(L) 1.60 - 7.50 x10E9/L 09/10/2023 1:26 AM [facility] Blood BLOOD SPECIMEN / Unknown Venipuncture / Unknown 09/09/2023 9:38 PM ARTIST REPRESENTATIVE 09/09/2023 9:45 PM ARTIST REPRESENTATIVE Cheryl Cronin MD LAB - HEMATOLOGY ORD ERABLES [facility] [address] [place] [address], [facility] [phone] * TRANSFUSE RED BLOOD CELL LEUKOREDUCED UNIT(S) (09/09/2023 6:41 AM ARTIST REPRESENTATIVE) Jamel Silverio MD NURSING - BLOOD PROD TRANSFUSION * TRANSFUSE RED BLOOD CELL LEUKOREDUCED UNIT(S), 1 Units (09/09/2023 6:41 AM ARTIST REPRESENTATIVE) Jamel Silvreio MD NURSING - BLOOD PROD TRANSFUSION * PREPARE (CROSSMATCH) RBC UNIT(S), 1 Units (09/09/2023 2:01 AM ARTIST REPRESENTATIVE) Unit Description AS1 LR PRBC IRR [facility] Unit ABO O [facility] Unit Rh POS [facility] Product Number R04 [facility] Unit Donor # [id number] [facility] Unit Status transfused [facility] Product Code [id number] [facility] Blood Type Barcode 5100 [facility] Expiration Date [id number] [facility] Blood Bank BLOOD SPECIMEN / Unknown 09/09/2023 12:19 AM ARTIST REPRESENTATIVE Jamel Silverio MD LAB - BLOOD BANK ORDERABLES [facility] [address] [place] [address], [facility] [phone] * BLOOD TYPE VERIFICATION (09/09/2023 12:58 AM ARTIST REPRESENTATIVE) ABO Rh O POS 09/09/2023 1:5 8 AM ARTIST REPRESENTATIVE [facility] Blood Bank BLOOD SPECIMEN / Unknown Venipuncture / Unknown 09/09/2023 12:58 AM ARTIST REPRESENTATIVE 09/09/2023 1:54 AM ARTIST REPRESENTATIVE Maria C Downing MD LAB - BLOOD BANK ORD ERABLES [facility] [address] [place] [address], [place] [phone] * TYPE + SCREEN PANEL (09/09/2023 12:13 AM ARTIST REPRESENTATIVE) Antibody Screen NEG 1:08 AM ARTIST REPRESENTATIVE [facility] ABO Rh O POS 09/09/2023 1:08 AM ARTIST REPRESENTATIVE [facility] Blood Bank BLOOD SPECIMEN / Unknown Venipuncture / Unknown 09/09/2023 12:13 AM ARTIST REPRESENTATIVE 09/09/2023 12:19 AM ARTIST REPRESENTATIVE Jamel Silverio MD LAB - BLOOD BANK ORDERABLES Performing Organization Address City/[facility]/ZIP Co de Phone Number [facility] [address] [place] [address], [place] [phone] * (ABNORMAL) PHOSPHORUS BLOOD (09/08/2023 8:55 PM ARTIST REPRESENTATIVE) Phosphorus 1.9(L) 2.9 - 5.1 mg/dL 09/09/2023 2:13 AM ARTIST REPRESENTATIVE [facility] Blood BLOOD SPECIMEN / Unknown Venipuncture / Unknown 09/08/2023 8:55 PM ARTIST REPRESENTATIVE 09/08/2023 9:08 PM ARTIST REPRESENTATIVE Jamel Silverio MD LAB - CHEMISTRY ORDERABLES Performing Organization Address City/[facility]/ZIP Co de Phone Number [facility] [address] [place] [address], [place] [phone] * MAGNESIUM BLOOD (09/08/2023 8:55 PM ARTIST REPRESENTATIVE) Magnesium 2.1 1.6 - 2.6 mg/dL 09/09/2023 2:13 AM ARTIST REPRESENTATIVE [facility] Blood BLOOD SPECIMEN / Unknown Venipuncture / Unknown 09/08/2023 8:55 PM ARTIST REPRESENTATIVE 09/08/2023 9:08 PM ARTIST REPRESENTATIVE Jamel Silverio MD LAB - CHEMISTRY ORDERABLES [address] [address], [place] [phone] * URIC ACID BLOOD (09/08/2023 8:55 PM ARTIST REPRESENTATIVE) Uric Acid 2.6 2.6 - 6.0 mg/dL 09/08/2023 10:39 PM ARTIST REPRESENTATIVE [facility] Blood BLOOD SPECIMEN / Unknown Venipuncture / Unknown 09/08/2023 8:55 PM ARTIST REPRESENTATIVE 09/08/2023 9:08 PM ARTIST REPRESENTATIVE Cheryl Cronin MD LAB - CHEMISTRY JON NAIDU Performing Organization Address City/[facility]/ZIP Co de Phone Number [address] [address], [place] [phone] * (ABNORMAL) HAPTOGLOBIN (09/08/2023 8:55 PM ARTIST REPRESENTATIVE) Haptoglobin 262(H) 14 - 258 mg/dL 09/08/2023 10:39 PM ARTIST REPRESENTATIVE [facility] Comment:Result obtained by jose de jesus ashby. Blood BLOOD SPECIMEN / Unknown Venipuncture / Unknown 09/08/2023 8:55 PM ARTIST REPRESENTATIVE 09/08/2023 9:07 PM ARTIST REPRESENTATIVE Cheryl Cronin MD LAB - CHEMISTRY JON NAIDU Performing Organization Address [facility]/ZIP Co de Phone Number [address] [address], [place] [phone] * (ABNORMAL) RETIC COUNT (09/08/2023 8:55 PM ARTIST REPRESENTATIVE) Pathologist [facility] Reticulocyte Percent 1.21 0.50 - 2.40 % 09/08/2023 9:27 PM [facility] Reticulocyte Absolute 0.0249 0.0200 - 0.1100 x10E6/uL 09/08/2023 9:27 PM [facility] Ret-HE 39.2(H) 29.0 - 37.9 pg 09/08/2023 9:27 PM [facility] Immature Reticulocyte Fraction 6.1 1.8 - 15.2 % 09/08/2023 9:27 PM [facility] Blood BLOOD SPECIMEN / Unknown Venipuncture / Unknown 09/08/2023 8:55 PM ARTIST REPRESENTATIVE 09/08/2023 9:08 PM ARTIST REPRESENTATIVE Cheryl Cronin MD LAB - HEMATOLOGY MANJULA HONG [address] [place] [address], [place] [phone] * (ABNORMAL) LDH BLOOD (09/08/2023 8:55 PM ARTIST REPRESENTATIVE) Pathologist [facility] LDH Total 372(H) 125 - 243 Units/L 09/08/2023 9:40 PM ARTIST REPRESENTATIVE [facility] Blood BLOOD SPECIMEN / Unknown Venipuncture / Unknown 09/08/2023 8:55 PM ARTIST REPRESENTATIVE 09/08/2023 9:08 PM ARTIST REPRESENTATIVE Cheryl Cronin MD LAB - CHEMISTRY ORDE RABLES [address] [address], [facility] [phone] * (ABNORMAL) PTT [facility] (09/08/2023 8:55 PM ARTIST REPRESENTATIVE) [facility] APTT 21.7(L) 23.0 - 38.4 Seconds 09/08/2023 9:36 PM [facility] Comment:Suggested therapeuti c range for full dose I.V. unfractionated heparin therapy for venous thromboembolism is 71 to 109 seconds. Blood BLOOD SPECIMEN / Unknown Venipuncture / Unknown 09/08/2023 8:55 PM ARTIST REPRESENTATIVE 09/08/2023 9:08 PM ARTIST REPRESENTATIVE Cheryl Cronin MD LAB - COAGULATION OR DERABLES [facility] [address] [place] [address], [place] [phone] * PT-INR [facility] (09/08/2023 8:55 PM ARTIST REPRESENTATIVE) Pathologist [facility] PT 13.1 12.1 - 14.8 Seconds 09/08/2023 9:36 PM ARTIST REPRESENTATIVE [facility] INR 1.0 See Comment 09/08/2023 9:36 PM ARTIST REPRESENTATIVE [facility] Comment:The suggested therap eutic range for standard coumadin (warfarin) therapy is an INR of 2.0-3.0. For high-risk patients (Mechanical Mitral Valve Prosthesis, etc.), the suggested prophylactic therapeutic range is an INR of 2.5-3.5. Blood BLOOD SPECIMEN / Unknown Venipuncture / Unknown 09/08/2023 8:55 PM ARTIST REPRESENTATIVE 09/08/2023 9:08 PM ARTIST REPRESENTATIVE Cheryl Cronin MD LAB - COAGULATION OR DERABLES Performing Organization Address [facility]/ZIP Co de Phone Number [address] [address], [facility] [phone] * FIBRINOGEN ACTIVITY (09/08/2023 8:55 PM ARTIST REPRESENTATIVE) [facility] Fibrinogen Clauss 269 200 - 400 mg/dL 09/08/2023 9:36 PM ARTIST REPRESENTATIVE [facility] Blood BLOOD SPECIMEN / Unknown Venipuncture / Unknown 09/08/2023 8:55 PM ARTIST REPRESENTATIVE 09/08/2023 9:08 PM ARTIST REPRESENTATIVE Cheryl rConin MD LAB - COAGULATION OR DERABLES Performing Organization Address [facility] Co de Phone Number [address] [address], [facility] [phone] * (ABNORMAL) D-DIMER (09/08/2023 8:55 PM ARTIST REPRESENTATIVE) [facility] D-Dimer Quantitative 3.47(H) <=0.50 mcg/mL FEU 09/08/2023 9:38 PM ARTIST REPRESENTATIVE [facility] Comment: In the absence of clinical [...] BLOOD SPECIMEN / Unknown Venipuncture / Unknown 09/08/2023 8:55 PM ARTIST REPRESENTATIVE 09/08/2023 9:08 PM ARTIST REPRESENTATIVE Cheryl Cronin MD LAB - COAGULATION OR DERABLES Performing Organization Address [facility]/State/ZIP Co de Phone Number [facility] [address] [place] [address], [facility] [phone] * (ABNORMAL) COMPREHENSIVE METABOLIC PANEL (09/08/2023 8:55 PM ARTIST REPRESENTATIVE) BUN 14 7 - 26 mg/dL 09/08/2023 9:40 PM [facility] Creatinine 0.75 0.56 - 0.96 mg/dL 09/08/2023 9:40 PM [facility] Sodium 140 136 - 145 mmol/L 09/08/2023 9:40 PM [facility] Potassium 3.9 3.5 - 4.5 mmol/L 09/08/2023 9:40 PM [facility] Chloride 113(H) 98 - 107 mmol/L 09/08/2023 9:40 PM [facility] CO2 20(L) 22 - 29 mmol/L 09/08/2023 9:40 PM [facility] Glucose 266(H) 70 - 115 mg/dL 09/08/2023 9:40 PM [facility] Calcium 8.4 8.4 - 10.2 mg/dL 09/08/2023 9:40 PM [facility] Protein Total 6.3 6.0 - 8.3 g/dL 09/08/2023 9:40 PM [facility] Albumin 2.9(L) 3.4 - 5.0 g/dL 09/08/2023 9:40 PM [facility] Bilirubin Total 0.4 0.2 - 1.2 mg/dL 09/08/2023 9:40 PM [facility] Alkaline Phosphatase 56 40 - 150 U/L 09/08/2023 9:40 PM [facility] ALT 66(H) 5 - 55 U/L 09/08/2023 9:40 PM [facility] AST 62(H) 5 - 34 U/L 09/08/2023 9:40 PM [facility] Anion Gap 7 6 - 16 09/08/2023 9:40 PM [facility] BUN/Creatinine Ratio 19 7 - 23 09/08/2023 9:40 PM [facility] Osmolality Calculated 300(H) 275 - 295 mOsm/kg 09/08/2023 9:40 PM [facility] Albumin/Globulin Ratio 0.9(L) 1.1 - 2.3 09/08/2023 9:40 PM [facility] eGFR by CKD-EPI >90 >=90 mL/min/1.7 3 m2 09/08/2023 9:40 PM [facility] Blood BLOOD SPECIMEN / Unknown Venipuncture / Unknown 09/08/2023 8:55 PM ARTIST REPRESENTATIVE 09/08/2023 9:08 PM [facility] Cheryl Cronin MD LAB - CHEMISTRY JON NAIDU [facility] Organization Address City/State/[facility] Co de Phone Number [facility] [address] [place] [phone], [facility] [phone] * (ABNORMAL) CBC W AUTO DIFFERENTIAL (09/08/2023 8:55 PM ARTIST REPRESENTATIVE) WBC 0.4(LL) 4.0 - 10.7 x10E9/L 09/09/2023 12:19 AM [facility] RBC Count 2.06(L) 3.90 - 5.20 x10E12/L 09/09/2023 12:19 AM [facility] Hemoglobin 6.7(L) 11.9 - 15.8 g/dL 09/09/2023 12:19 AM [facility] Hematocrit 18.8(L) 34.8 - 46.1 % 09/09/2023 12:19 AM [facility] MCV 91.3 80.0 - 98.0 fL 09/09/2023 12:19 AM [facility] MCH 32.5 26.7 - 33.6 pg 09/09/2023 12:19 AM [facility] MCHC 35.6 31.7 - 36.3 g/dL 09/09/2023 12:19 AM [facility] RDW-CV 14.6 11.3 - 14.8 % 09/09/2023 12:19 AM [facility] Platelet Count 19(L) 150 - 420 x10E9/L 09/09/2023 12:19 AM [facility] Comment:Platelet count has b een confirmed by slide review. Preliminary Absolute Neutrophil 0.23(L) 1.60 - 7.50 x10E9/L 09/09/2023 12:19 AM [facility] Blood BLOOD SPECIMEN / Unknown Venipuncture / Unknown 09/08/2023 8:55 PM ARTIST REPRESENTATIVE 09/08/2023 9:08 PM ARTIST REPRESENTATIVE Cheryl Cronin MD LAB - HEMATOLOGY ORD ERABLES [address] [address], [facility] [phone] * URIC ACID BLOOD (09/07/2023 8:08 PM ARTIST REPRESENTATIVE) Uric Acid 3.0 2.6 - 6.0 mg/dL 09/07/2023 9:16 PM [facility] Blood BLOOD SPECIMEN / Unknown Venipuncture / Unknown 09/07/2023 8:08 PM ARTIST REPRESENTATIVE 09/07/2023 8:46 PM ARTIST REPRESENTATIVE Cheryl Cronin MD LAB - CHEMISTRY ORDE RABQI [address] [address], [place] [phone] * (ABNORMAL) HAPTOGLOBIN (09/07/2023 8:08 PM ARTIST REPRESENTATIVE) Pathologist [facility] Haptoglobin 265(H) 14 - 258 mg/dL 09/07/2023 9:06 PM [facility] Comment:Result obtained by jose de jesus ashby. Blood BLOOD SPECIMEN / Unknown Venipuncture / Unknown 09/07/2023 8:08 PM ARTIST REPRESENTATIVE 09/07/2023 8:54 PM ARTIST REPRESENTATIVE Cheryl Cronin MD LAB - CHEMISTRY ORDE RABLES [address] [address], [place] [phone] * (ABNORMAL) RETIC COUNT (09/07/2023 8:08 PM ARTIST REPRESENTATIVE) [facility] Reticulocyte Percent 1.22 0.50 - 2.40 % 09/07/2023 9:35 PM [facility] Reticulocyte Absolute 0.0272 0.0200 - 0.1100 x10E6/uL 09/07/2023 9:35 PM [facility] Ret-HE 39.1(H) 29.0 - 37.9 pg 09/07/2023 9:35 PM [facility] Immature Reticulocyte Fraction 9.1 1.8 - 15.2 % 09/07/2023 9:35 PM [facility] Blood BLOOD SPECIMEN / Unknown Venipuncture / Unknown 09/07/2023 8:08 PM ARTIST REPRESENTATIVE 09/07/2023 8:47 PM ARTIST REPRESENTATIVE Cheryl Cronin MD LAB - HEMATOLOGY ORD ERABLES [address] [address], [place] [phone] * (ABNORMAL) LDH BLOOD (09/07/2023 8:08 PM ARTIST REPRESENTATIVE) Pathologist [facility] LDH Total 357(H) 125 - 243 Units/L 09/07/2023 9:16 PM [facility] Blood BLOOD SPECIMEN / Unknown Venipuncture / Unknown 09/07/2023 8:08 PM ARTIST REPRESENTATIVE 09/07/2023 8:46 PM ARTIST REPRESENTATIVE Cheryl Cronin MD LAB - CHEMISTRY JON NAIDU Performing Organization Address City/[facility]/ZIP Co de Phone Number [address] [address], [place] [phone] * PTT [facility] (09/07/2023 8:08 PM ARTIST REPRESENTATIVE) APTT 24.6 23.0 - 38.4 Seconds 09/07/2023 9:32 PM ARTIST REPRESENTATIVE [facility] Comment:Suggested therapeuti c range for full dose I.V. unfractionated heparin therapy for venous thromboembolism is 71 to 109 seconds. Blood BLOOD SPECIMEN / Unknown Venipuncture / Unknown 09/07/2023 8:08 PM ARTIST REPRESENTATIVE 09/07/2023 8:46 PM ARTIST REPRESENTATIVE Cheryl Cronin MD LAB - COAGULATION OR DERABLES Performing Organization Address [facility] Co de Phone Number [address] [address], [place] [phone] * PT-INR [facility] (09/07/2023 8:08 PM ARTIST REPRESENTATIVE) PT 13.7 12.1 - 14.8 Seconds 09/07/2023 9:32 PM ARTIST REPRESENTATIVE [facility] INR 1.1 See Comment 09/07/2023 9:32 PM ARTIST REPRESENTATIVE [facility] Comment:The suggested therap eutic range for standard coumadin (warfarin) therapy is an INR of 2.0-3.0. For high-risk patients (Mechanical Mitral Valve Prosthesis, etc.), the suggested prophylactic therapeutic range is an INR of 2.5-3.5. Blood BLOOD SPECIMEN / Unknown Venipuncture / Unknown 09/07/2023 8:08 PM ARTIST REPRESENTATIVE 09/07/2023 8:46 PM ARTIST REPRESENTATIVE Cheryl Cronin MD LAB - COAGULATION OR DERABLES Performing Organization Address [facility]/ZIP Co de Phone Number [address] [address], [facility] [phone] * FIBRINOGEN ACTIVITY (09/07/2023 8:08 PM ARTIST REPRESENTATIVE) [facility] Fibrinogen Clauss 352 200 - 400 mg/dL 09/07/2023 9:32 PM ARTIST REPRESENTATIVE [facility] Blood BLOOD SPECIMEN / Unknown Venipuncture / Unknown 09/07/2023 8:08 PM ARTIST REPRESENTATIVE 09/07/2023 8:46 PM ARTIST REPRESENTATIVE Cheryl Cronin MD LAB - COAGULATION OR DERABLES [facility] [address] [place] [address], [facility] [phone] * (ABNORMAL) D-DIMER (09/07/2023 8:08 PM ARTIST REPRESENTATIVE) [facility] D-Dimer Quantitative 2.99(H) <=0.50 mcg/mL FEU 09/07/2023 9:34 PM ARTIST REPRESENTATIVE [facility] Comment: In the absence of clinical [...] BLOOD SPECIMEN / Unknown Venipuncture / Unknown 09/07/2023 8:08 PM ARTIST REPRESENTATIVE 09/07/2023 8:46 PM ARTIST REPRESENTATIVE Cheryl Cronin MD LAB - COAGULATION OR DERABLES Performing Organization Address [facility]/ZIP Co de Phone Number [facility] [address] [place] [address] [phone] * (ABNORMAL) COMPREHENSIVE METABOLIC PANEL (09/07/2023 8:08 PM ARTIST REPRESENTATIVE) BUN 7 7 - 26 mg/dL 09/07/2023 9:16 PM [facility] Creatinine 0.60 0.56 - 0.96 mg/dL 09/07/2023 9:16 PM [facility] Sodium 139 136 - 145 mmol/L 09/07/2023 9:16 PM [facility] Potassium 4.1 3.5 - 4.5 mmol/L 09/07/2023 9:16 PM [facility] [facility] Chloride 111(H) 98 - 107 mmol/L 09/07/2023 9:16 PM [facility] CO2 21(L) 22 - 29 mmol/L 09/07/2023 9:16 PM [facility] Glucose 151(H) 70 - 115 mg/dL 09/07/2023 9:16 PM [facility] Calcium 8.5 8.4 - 10.2 mg/dL 09/07/2023 9:16 PM [facility] Protein Total 6.9 6.0 - 8.3 g/dL 09/07/2023 9:16 PM [facility] Albumin 3.0(L) 3.4 - 5.0 g/dL 09/07/2023 9:16 PM [facility] Bilirubin Total 0.4 0.2 - 1.2 mg/dL 09/07/2023 9:16 PM [facility] Alkaline Phosphatase 59 40 - 150 U/L 09/07/2023 9:16 PM [facility] ALT 44 5 - 55 U/L 09/07/2023 9:16 PM [facility] AST 33 5 - 34 U/L 09/07/2023 9:16 PM [facility] Anion Gap 7 6 - 16 09/07/2023 9:16 PM [facility] BUN/Creatinine Ratio 12 7 - 23 09/07/2023 9:16 PM [facility] Osmolality Calculated 289 275 - 295 mOsm/kg 09/07/2023 9:16 PM [facility] Albumin/Globulin Ratio 0.8(L) 1.1 - 2.3 09/07/2023 9:16 PM [facility] eGFR by CKD-EPI >90 >=90 mL/min/1.7 3 m2 09/07/2023 9:16 PM [facility] Blood BLOOD SPECIMEN / Unknown Venipuncture / Unknown 09/07/2023 8:08 PM ARTIST REPRESENTATIVE 09/07/2023 8:46 PM ARTIST REPRESENTATIVE Cheryl Cronin MD LAB - CHEMISTRY JON NAIDU [facility] Organization Address [facility] Co de Phone Number [address] [address] [phone] * (ABNORMAL) CBC W AUTO DIFFERENTIAL (09/07/2023 8:08 PM ARTIST REPRESENTATIVE) WBC 0.5(LL) 4.0 - 10.7 x10E9/L 09/07/2023 10:40 PM [facility] RBC Count 2.23(L) 3.90 - 5.20 x10E12/L 09/07/2023 10:40 PM [facility] Hemoglobin 7.2(L) 11.9 - 15.8 g/dL 09/07/2023 10:40 PM [facility] Hematocrit 20.2(L) 34.8 - 46.1 % 09/07/2023 10:40 PM [facility] MCV 90.6 80.0 - 98.0 fL 09/07/2023 10:40 PM [facility] MCH 32.3 26.7 - 33.6 pg 09/07/2023 10:40 PM [facility] MCHC 35.6 31.7 - 36.3 g/dL 09/07/2023 10:40 PM [facility] RDW-CV 14.5 11.3 - 14.8 % 09/07/2023 10:40 PM [facility] Platelet Count 25(L) 150 - 420 x10E9/L 09/07/2023 10:40 PM [facility] Comment:platelet count verif ied by smear MPV 12.8(H) 7.8 - 11.4 fL 09/07/2023 10:40 PM [facility] Preliminary Absolute Neutrophil 0.23(L) 1.60 - 7.50 x10E9/L 09/07/2023 10:40 PM [facility] Blood BLOOD SPECIMEN / Unknown Venipuncture / Unknown 09/07/2023 8:08 PM ARTIST REPRESENTATIVE 09/07/2023 8:47 PM ARTIST REPRESENTATIVE Cheryl Cronin MD LAB - HEMATOLOGY ORD ERABLES Performing Organization Address City/[facility]/ZIP Co de Phone Number [address] [address], [facility] [phone] * URIC ACID BLOOD (09/07/2023 9:58 AM ARTIST REPRESENTATIVE) Uric Acid 4.3 2.6 - 6.0 mg/dL 09/07/2023 10:28 AM [facility] Blood BLOOD SPECIMEN / Unknown Venipuncture / Unknown 09/07/2023 9:58 AM ARTIST REPRESENTATIVE 09/07/2023 10:03 AM ARTIST REPRESENTATIVE Cheryl Cronin MD LAB - CHEMISTRY ORDE RABQI [address] [address], [place] [phone] * (ABNORMAL) DIFFERENTIAL MANUAL (09/06/2023 9:43 PM ARTIST REPRESENTATIVE) Neutrophil % 30(L) 41 - 74 % 09/07/2023 12:41 AM [facility] Lymphocyte % 62(H) 17 - 47 % 09/07/2023 12:41 AM [facility] Blasts % 6(H) 0% % 09/07/2023 12:41 AM [facility] Neutrophil Absolute 0.18(L) 1.60 - 7.50 x10E9/L 09/07/2023 12:41 AM [facility] Lymphocyte Absolute 0.37(L) 1.00 - 4.40 x10E9/L 09/07/2023 12:41 AM [facility] Monocyte Absolute 0.02(L) 0.15 - 1.00 x10E9/L 09/07/2023 12:41 AM [facility] Basophil Absolute 0.01 0.00 - 0.13 x10E9/L 09/07/2023 12:41 AM [facility] RBC Morphology NORMAL 09/07/2023 12:41 AM [facility] Blood BLOOD SPECIMEN / Unknown Venipuncture / Unknown 09/06/2023 9:43 PM ARTIST REPRESENTATIVE 09/06/2023 10:03 PM ARTIST REPRESENTATIVE Cheryl Cronin MD LAB - HEMATOLOGY ORD ERABLES [facility] [address] [place] [address], [facility] [phone] * CYTOMEGALOVIRUS ANTIBODY IGG BLOOD (09/06/2023 9:43 PM ARTIST REPRESENTATIVE) Pathologist [facility] Cytomegalovirus Antibody IgG 0.26 <=0.70 U/mL 09/09/2023 1:32 PM ARTIST REPRESENTATIVE [facility] [employer] ([facility]) Comment: INTERPRETIVE INFORMATION: Cytomegalovirus Antibody, IgG [...] laboratory at the same time. Performed By: [place] [address] Game Technician: Ebenezer Shipman MD, PhD CLIA Number: [id number] Blood BLOOD SPECIMEN / Unknown Venipuncture / Unknown 09/06/2023 9:43 PM ARTIST REPRESENTATIVE 09/06/2023 10:26 PM ARTIST REPRESENTATIVE Cheryl Cronin MD LAB - CHEMISTRY JON NAIDU Performing Organization Address [facility]/ZIP Co de Phone Number [facility] ([facility]) [address] [place] [address] * (ABNORMAL) HAPTOGLOBIN (09/06/2023 9:43 PM ARTIST REPRESENTATIVE) [facility] Haptoglobin 281(H) 14 - 258 mg/dL 09/06/2023 11:02 PM ARTIST REPRESENTATIVE [facility] Comment:Result obtained by jose de jesus ashby. Blood BLOOD SPECIMEN / Unknown Venipuncture / Unknown 09/06/2023 9:43 PM ARTIST REPRESENTATIVE 09/06/2023 10:26 PM ARTIST REPRESENTATIVE Cheryl Cronin MD LAB - CHEMISTRY JON NAIDU [facility] [address] [place] [address], [facility] [phone] * (ABNORMAL) RETIC COUNT (09/06/2023 9:43 PM ARTIST REPRESENTATIVE) [facility] Reticulocyte Percent 1.13 0.50 - 2.40 % 09/07/2023 12:41 AM [facility] Reticulocyte Absolute 0.0277 0.0200 - 0.1100 x10E6/uL 09/07/2023 12:41 AM [facility] Ret-HE 39.1(H) 29.0 - 37.9 pg 09/07/2023 12:41 AM [facility] Immature Reticulocyte Fraction 6.3 1.8 - 15.2 % 09/07/2023 12:41 AM [facility] Blood BLOOD SPECIMEN / Unknown Venipuncture / Unknown 09/06/2023 9:43 PM ARTIST REPRESENTATIVE 09/06/2023 10:03 PM ARTIST REPRESENTATIVE Cheryl Cronin MD LAB - HEMATOLOGY ORD ERABLES [address] [address], [place] [phone] * (ABNORMAL) LDH BLOOD (09/06/2023 9:43 PM ARTIST REPRESENTATIVE) Pathologist [facility] LDH Total 364(H) 125 - 243 Units/L 09/06/2023 10:29 PM [facility] Blood BLOOD SPECIMEN / Unknown Venipuncture / Unknown 09/06/2023 9:43 PM ARTIST REPRESENTATIVE 09/06/2023 10:03 PM ARTIST REPRESENTATIVE Cheryl rConin MD LAB - CHEMISTRY ORDE RABLES Performing Organization Address [facility]/ZIP Co de Phone Number [address] [address], [place] [phone] * PTT [facility] (09/06/2023 9:43 PM ARTIST REPRESENTATIVE) APTT 27.9 23.0 - 38.4 Seconds 09/06/2023 10:46 PM [facility] Comment:Suggested therapeuti c range for full dose I.V. unfractionated heparin therapy for venous thromboembolism is 71 to 109 seconds. Blood BLOOD SPECIMEN / Unknown Venipuncture / Unknown 09/06/2023 9:43 PM ARTIST REPRESENTATIVE 09/06/2023 10:03 PM ARTIST REPRESENTATIVE Cheryl Cronin MD LAB - COAGULATION OR DERABLES Performing Organization Address City/[facility]/ZIP Co de Phone Number [address] [address], [place] [phone] * PT-INR [facility] (09/06/2023 9:43 PM ARTIST REPRESENTATIVE) [facility] PT 14.3 12.1 - 14.8 Seconds 09/06/2023 10:46 PM [facility] INR 1.1 See Comment 09/06/2023 10:46 PM [facility] Comment:The suggested therap eutic range for standard coumadin (warfarin) therapy is an INR of 2.0-3.0. For high-risk patients (Mechanical Mitral Valve Prosthesis, etc.), the suggested prophylactic therapeutic range is an INR of 2.5-3.5. Blood BLOOD SPECIMEN / Unknown Venipuncture / Unknown 09/06/2023 9:43 PM ARTIST REPRESENTATIVE 09/06/2023 10:03 PM ARTIST REPRESENTATIVE Cheryl Cronin MD LAB - COAGULATION OR DERABLES Performing Organization Address [facility]/ZIP Co de Phone Number [address] [address], [facility] [phone] * (ABNORMAL) FIBRINOGEN ACTIVITY (09/06/2023 9:43 PM ARTIST REPRESENTATIVE) [facility] Fibrinogen Clauss 441(H) 200 - 400 mg/dL 09/06/2023 10:47 PM [facility] Blood BLOOD SPECIMEN / Unknown Venipuncture / Unknown 09/06/2023 9:43 PM ARTIST REPRESENTATIVE 09/06/2023 10:03 PM ARTIST REPRESENTATIVE Cheryl Cronin MD LAB - COAGULATION OR DERABLES [address] [address], [facility] [phone] * (ABNORMAL) D-DIMER (09/06/2023 9:43 PM ARTIST REPRESENTATIVE) [facility] D-Dimer Quantitative 1.89(H) <=0.50 mcg/mL FEU 09/06/2023 10:48 PM [facility] Comment: In the absence of clinical [...] Unknown Venipuncture / Unknown 09/06/2023 9:43 PM ARTIST REPRESENTATIVE 09/06/2023 10:03 PM ARTIST REPRESENTATIVE Cheryl Cronin MD LAB - COAGULATION OR DERABLES Performing Organization Address [facility]/State/ZIP Co de Phone Number [facility] [address] [place] [address], [facility] [phone] * (ABNORMAL) COMPREHENSIVE METABOLIC PANEL (09/06/2023 9:43 PM ARTIST REPRESENTATIVE) BUN 9 7 - 26 mg/dL 09/06/2023 10:29 PM [facility] Creatinine 0.70 0.56 - 0.96 mg/dL 09/06/2023 10:29 PM [facility] Sodium 137 136 - 145 mmol/L 09/06/2023 10:29 PM [facility] Potassium 4.5 3.5 - 4.5 mmol/L 09/06/2023 10:29 PM [facility] Chloride 111(H) 98 - 107 mmol/L 09/06/2023 10:29 PM [facility] CO2 21(L) 22 - 29 mmol/L 09/06/2023 10:29 PM [facility] Glucose 170(H) 70 - 115 mg/dL 09/06/2023 10:29 PM [facility] Calcium 8.7 8.4 - 10.2 mg/dL 09/06/2023 10:29 PM [facility] Protein Total 7.4 6.0 - 8.3 g/dL 09/06/2023 10:29 PM [facility] Albumin 3.2(L) 3.4 - 5.0 g/dL 09/06/2023 10:29 PM [facility] Bilirubin Total 0.3 0.2 - 1.2 mg/dL 09/06/2023 10:29 PM [facility] Alkaline Phosphatase 65 40 - 150 U/L 09/06/2023 10:29 PM [facility] ALT 50 5 - 55 U/L 09/06/2023 10:29 PM [facility] AST 48(H) 5 - 34 U/L 09/06/2023 10:29 PM [facility] Anion Gap 5(L) 6 - 16 09/06/2023 10:29 PM [facility] BUN/Creatinine Ratio 13 7 - 23 09/06/2023 10:29 PM [facility] Osmolality Calculated 287 275 - 295 mOsm/kg 09/06/2023 10:29 PM [facility] Albumin/Globulin Ratio 0.8(L) 1.1 - 2.3 09/06/2023 10:29 PM [facility] eGFR by CKD-EPI >90 >=90 mL/min/1.7 3 m2 09/06/2023 10:29 PM [facility] Blood BLOOD SPECIMEN / Unknown Venipuncture / Unknown 09/06/2023 9:43 PM ARTIST REPRESENTATIVE 09/06/2023 10:03 PM [facility] Cheryl Cronin MD LAB - CHEMISTRY JON NAIDU [facility] Organization Address City/State/ZIP Co de Phone Number [facility] [address] [place] [address], [facility] [phone] * (ABNORMAL) CBC W AUTO DIFFERENTIAL (09/06/2023 9:43 PM ARTIST REPRESENTATIVE) WBC 0.6(LL) 4.0 - 10.7 x10E9/L 09/07/2023 12:59 AM [facility] RBC Count 2.45(L) 3.90 - 5.20 x10E12/L 09/07/2023 12:59 AM [facility] Hemoglobin 7.9(L) 11.9 - 15.8 g/dL 09/07/2023 12:59 AM [facility] Hematocrit 22.0(L) 34.8 - 46.1 % 09/07/2023 12:59 AM [facility] MCV 89.8 80.0 - 98.0 fL 09/07/2023 12:59 AM [facility] MCH 32.2 26.7 - 33.6 pg 09/07/2023 12:59 AM [facility] MCHC 35.9 31.7 - 36.3 g/dL 09/07/2023 12:59 AM [facility] RDW-CV 14.5 11.3 - 14.8 % 09/07/2023 12:59 AM [facility] Platelet Count 23(L) 150 - 420 x10E9/L 09/07/2023 12:59 AM [facility] MPV 11.8(H) 7.8 - 11.4 fL 09/07/2023 12:59 AM [facility] Preliminary Absolute Neutrophil 0.20(L) 1.60 - 7.50 x10E9/L 09/07/2023 12:59 AM [facility] Blood BLOOD SPECIMEN / Unknown Venipuncture / Unknown 09/06/2023 9:43 PM ARTIST REPRESENTATIVE 09/06/2023 10:03 PM ARTIST REPRESENTATIVE Cheryl Cronin MD LAB - HEMATOLOGY ORD ERABLES [facility] [address] [place] [address], [facility] [phone] * CYTOMEGALOVIRUS (CMV) QUANTITATIVE PLASMA (09/06/2023 5:15 PM ARTIST REPRESENTATIVE) CMV Quant by PCR, Interp Not detected Not detected 09/09/2023 9:42 AM ARTIST REPRESENTATIVE [facility] MICROBIOLOGY Blood BLOOD SPECIMEN / Unknown Lab Venipuncture / Unknown 09/06/2023 5:15 PM ARTIST REPRESENTATIVE 09/06/2023 6:45 PM ARTIST REPRESENTATIVE Narrative [facility] MICROBIOLOGY - 09/09/2023 9:42 AM ARTIST REPRESENTATIVE The CMV DNA analysis utilized real-time PCR, [...] Cronin MD LAB - CHEMISTRY JON NAIDU [facility] MICROBIOLOGY [address] [place] [address], [facility] [phone] * HLA TYPING DNA HIGH RESOLUTION DR (09/06/2023 5:15 PM ARTIST REPRESENTATIVE) Pathologist [facility] DR Locus DRB1-1 *04:01 9:47 AM ARTIST REPRESENTATIVE [facility] (BEAKER) DR DQ Low Resolution DRB1-2 *07:01 09/20/2023 9:47 AM ARTIST REPRESENTATIVE [facility] ([facility]) DR Locus Test Method NGS 09/20/2023 9:47 AM ARTIST REPRESENTATIVE [facility] ([facility]) DR Locus Test Date [id number] 9:47 AM ARTIST REPRESENTATIVE [facility] ([facility]) Comment: This test was developed and its [...] high complexity clinical laboratory testing. ??CLIA ID# [id number] Performed at: [facility], [address] [place] [address] ??[phone] Plant Attendant Or Assistant Operator:Dr. Virgil Mabry, PhD, Blood BLOOD SPECIMEN / Unknown Venipuncture / Unknown 09/06/2023 5:15 PM ARTIST REPRESENTATIVE 09/06/2023 5:22 PM ARTIST REPRESENTATIVE Cheryl Cronin MD LAB - BLOOD BANK ORD ERABLES [facility] ([facility]) [address] [place], [place] [id number] [place] [address] * HLA TYPING DNA LOW RESOLUTION A,B,C (09/06/2023 5:15 PM ARTIST REPRESENTATIVE) Pathologist [facility] ABC DNA A1 *02 09/20/2023 9:47 AM ARTIST REPRESENTATIVE [facility] ([facility]) ABC DNA A2 *03 09/20/2023 9:47 AM ARTIST REPRESENTATIVE [facility] ([facility]) ABC DNA B1 *44 09/20/2023 9:47 AM ARTIST REPRESENTATIVE [facility] ([facility]) ABC DNA B2 *57 09/20/2023 9:47 AM ARTIST REPRESENTATIVE [facility] ([facility]) ABC DNA BW1 4 09/20/2023 9:47 AM ARTIST REPRESENTATIVE [facility] ([facility]) ABC DNA BW2 4 09/20/2023 9:47 AM ARTIST REPRESENTATIVE [facility] ([facility]) ABC DNA C1 *05 09/20/2023 9:47 AM [facility] ([facility]) ABC DNA C2 *06 09/20/2023 9:47 AM ARTIST REPRESENTATIVE [facility] ([facility]) ABC DNA Methodology Real Time PCR 09/20/2023 9:47 AM ARTIST REPRESENTATIVE [facility] ([facility]) ABC DNA Test Date [id number] 02/2024 9:47 AM [facility] ([facility]) Comment: This test was developed and its [...] high complexity clinical laboratory testing. ??CLIA ID# [id number] Performed at: [facility], [address] [place] [address] ??[phone] Plant Attendant Or Assistant Operator:Dr. Virgil Mabry, PhD, Blood BLOOD SPECIMEN / Unknown Venipuncture / Unknown 09/06/2023 5:15 PM ARTIST REPRESENTATIVE 09/06/2023 5:22 PM ARTIST REPRESENTATIVE Cheryl Cronin MD LAB - BLOOD BANK ORD ERABLES [facility] ([facility]) [address] [place], [place] [id number] [place] [address] * HLA TYPING DNA LOW RESOLUTION DR,DQ (09/06/2023 5:15 PM ARTIST REPRESENTATIVE) DR DQ Low Resolution DRB1-1 *04 09/20/2023 9:47 AM ARTIST REPRESENTATIVE [facility] ([facility]) DR DQ Low Resolution DRB1-2 *07 09/20/2023 9:47 AM [facility] ([facility]) DR DQ Low Resolution DQB1-1 *03 09/20/2023 9:47 AM ARTIST REPRESENTATIVE [facility] ([facility]) DR DQ Low Resolution DRB3-1 Negative 09/20/2023 9:47 AM ARTIST REPRESENTATIVE [facility] ([facility]) DR DQ Low Resolution DRB3-2 Negative 09/20/2023 9:47 AM ARTIST REPRESENTATIVE [facility] ([facility]) DR DQ Low Resolution DRB4-1 *01 09/20/2023 9:47 AM ARTIST REPRESENTATIVE [facility] ([facility]) DR DQ Low Resolution DRB4-2 *01:03N 09/20/2023 9:47 AM ARTIST REPRESENTATIVE [facility] ([facility]) DR DQ Low Resolution DRB5-1 Negative 09/20/2023 9:47 AM ARTIST REPRESENTATIVE [facility] ([facility]) DR DQ Low Resolution DRB5-2 Negative 09/20/2023 9:47 AM ARTIST REPRESENTATIVE [facility] ([facility]) DR DQ Low Resolution Methodology Real Time PCR 09/20/2023 9:47 AM [facility] ([facility]) DR DQ Low Resolution test date [id number] 09/20/2023 9:47 AM [facility] ([facility]) Comment: This test was developed and its [...] high complexity clinical laboratory testing. ??CLIA ID# [id number] Performed at: [facility], [address] [place] [address] ??[phone] Plant Attendant Or Assistant Operator:Dr. Virgil Mabry, PhD, Blood BLOOD SPECIMEN / Unknown Venipuncture / Unknown 09/06/2023 5:15 PM ARTIST REPRESENTATIVE 09/06/2023 5:22 PM ARTIST REPRESENTATIVE Cheryl Cronin MD LAB - BLOOD BANK ORD ERABLES [facility] ([facility]) [address] [place] [address], [facility] * HLA TYPING LOW/HIGH RESOLUTION DPB1 (09/06/2023 5:15 PM ARTIST REPRESENTATIVE) Typ DNA LR DPB1 Allele #1 *03 09/20/2023 9:47 AM ARTIST REPRESENTATIVE [facility] ([facility]) Typ DNA LR DPB1 Allele #2 *04 09/20/2023 9:47 AM ARTIST REPRESENTATIVE [facility] ([facility]) Typ DNA HR DPB1 Allele #1 *03:01:01G 09/20/2023 9:47 AM ARTIST REPRESENTATIVE [facility] ([facility]) Typ DNA HR DPB1 Allele #2 *04:01:01G 09/20/2023 9:47 AM ARTIST REPRESENTATIVE [facility] ([facility]) Test Methodology RTPCR/NGS 09/20/19 9:47 AM ARTIST REPRESENTATIVE [facility] ([facility]) Date Results Entered [id number] 09/20/2023 9:47 AM ARTIST REPRESENTATIVE [facility] ([facility]) Comment: This test was developed and its performance characteristics determined by the [facility]. ??It has not been cleared or [...] high complexity clinical laboratory testing. Performed at: [facility], [address] [place], [place] ??[phone] Plant Attendant Or Assistant Operator:Dr. Virgil Mabry, PhD, Blood BLOOD SPECIMEN / Unknown Venipuncture / Unknown 09/06/2023 5:15 PM ARTIST REPRESENTATIVE 09/06/2023 5:22 PM ARTIST REPRESENTATIVE Cheryl Cronin MD LAB - BLOOD BANK ORD ERABLES [facility] ([facility]) [address] [place] [address], [facility] * HLA TYPING DNA HIGH RESOLUTION DQ (09/06/2023 5:15 PM ARTIST REPRESENTATIVE) DR DQ Low Resolution DQB1-1 *03:01 09/20/2023 9:47 AM ARTIST REPRESENTATIVE [facility] ([facility]) DR DQ Low Resolution DQB1-2 *03:03 09/20/2023 9:47 AM ARTIST REPRESENTATIVE [facility] ([facility]) DQ Locus Methodology NGS 09/20/2023 9:47 AM ARTIST REPRESENTATIVE [facility] ([facility]) DQ Locus Test Date [id number] 9:47 AM ARTIST REPRESENTATIVE [facility] ([facility]) Comment: This test was developed and its [...] high complexity clinical laboratory testing. ??CLIA ID# [id number] Performed at: [facility], [address] [place] [address] ??[id number] Plant Attendant Or Assistant Operator:Dr. Virgil Mabry, PhD, Blood BLOOD SPECIMEN / Unknown Venipuncture / Unknown 09/06/2023 5:15 PM ARTIST REPRESENTATIVE 09/06/2023 5:22 PM ARTIST REPRESENTATIVE Cheryl Cronin MD LAB - BLOOD BANK ORD ERABLES [facility] ([facility]) [address] [place] [address] * HLA TYPING DNA HIGH RESOLUTION C (09/06/2023 5:15 PM ARTIST REPRESENTATIVE) C Locus C1 *05:01 09/20/2023 9:47 AM ARTIST REPRESENTATIVE [facility] ([facility]) C Locus C2 *06:02 09/20/2023 9:47 AM ARTIST REPRESENTATIVE [facility] ([facility]) Test Method NGS 09/20/2023 9:47 AM ARTIST REPRESENTATIVE [facility] ([facility]) C Locus Test Date [id number] 02/2024 9:47 AM ARTIST REPRESENTATIVE [facility] ([facility]) Comment: This test was developed and its [...] high complexity clinical laboratory testing. ??CLIA ID# [id number] Performed at: [facility], [address] [place] [address] ??[id number] Plant Attendant Or Assistant Operator:Dr. Virgil Mabry, PhD, Blood BLOOD SPECIMEN / Unknown Venipuncture / Unknown 09/06/2023 5:15 PM ARTIST REPRESENTATIVE 09/06/2023 5:22 PM ARTIST REPRESENTATIVE Cheryl Cronin MD LAB - BLOOD BANK ORD ERABLES [facility] ([facility]) [address] [place], [place] [address] * HLA TYPING DNA HIGH RESOLUTION B (09/06/2023 5:15 PM ARTIST REPRESENTATIVE) HLA B Locus B-1 *44:02 4 9:47 AM ARTIST REPRESENTATIVE [facility] ([facility]) HLA B Locus Bw-1 4 09/20/19 24 9:47 AM ARTIST REPRESENTATIVE [facility] ([facility]) HLA B Locus B-2 *57:01 9:47 AM ARTIST REPRESENTATIVE [facility] ([facility]) HLA B Locus Bw-2 4 09/20/19 24 9:47 AM ARTIST REPRESENTATIVE [facility] ([facility]) HLA B Locus Methodology NGS 09/20/2023 9:47 AM ARTIST REPRESENTATIVE [facility] ([facility]) HLA B Locus Test Date [id number] 09/20/2023 9:47 AM ARTIST REPRESENTATIVE [facility] ([facility]) Comment: This test was developed and its performance characteristics determined by the [facility]. ??It has not been cleared or [...] high complexity clinical laboratory testing. ??CLIA ID# [id number] Performed at: [facility], [address] [place] [address] ??[phone] Plant Attendant Or Assistant Operator:Dr. Virgil Mabry, PhD, Blood BLOOD SPECIMEN / Unknown Venipuncture / Unknown 09/06/2023 5:15 PM ARTIST REPRESENTATIVE 09/06/2023 5:22 PM ARTIST REPRESENTATIVE Cheryl Cronin MD LAB - BLOOD BANK ORD ERABLES Performing Organization Address City/State/[facility] [facility] Co de Phone Number [facility] ([facility]) [address] [place] [address] * HLA TYPING DNA HIGH RESOLUTION A (09/06/2023 5:15 PM ARTIST REPRESENTATIVE) A Locus HR A1 *02:01 09/20/2023 9:47 AM ARTIST REPRESENTATIVE [facility] ([facility]) A Locus HR A2 *03:01 09/20/2023 9:47 AM ARTIST REPRESENTATIVE [facility] ([facility]) A Locus HR Methodology NGS 09/20/2023 9:47 AM ARTIST REPRESENTATIVE [facility] ([facility]) A Locus Test Date [id number] 02/2024 9:47 AM ARTIST REPRESENTATIVE [facility] ([facility]) Comment: This test was developed and its [...] high complexity clinical laboratory testing. ??CLIA ID# [id number] Performed at: [facility], [address] [place], [place] ??[id number] Plant Attendant Or Assistant Operator:Dr. Virgil Mabry, PhD, Blood BLOOD SPECIMEN / Unknown Venipuncture / Unknown 09/06/2023 5:15 PM ARTIST REPRESENTATIVE 09/06/2023 5:22 PM ARTIST REPRESENTATIVE Cheryl Cronin MD LAB - BLOOD BANK ORD ERABLES Performing Organization Address City/[facility]/ZIP Co de Phone Number [facility] ([facility] [address] [place], [place] [id number] [place] [address] * HCG URINE QUALITATIVE (09/06/2023 10:39 AM ARTIST REPRESENTATIVE) Test Urine Negative Negative 09/06/2023 11:12 AM [facility] Urine URINE / Unknown Collection / Unknown 09/06/2023 10:39 AM ARTIST REPRESENTATIVE 09/06/2023 10:48 AM ARTIST REPRESENTATIVE Remington Stafford MD LAB - URINALYSIS ORD ERABLES Performing Organization Address City/[facility]/ZIP Co de Phone Number [facility] [address] [place] [address], [facility] [phone] * (ABNORMAL) URINALYSIS W/MICROSCOPIC REFLEX TO CULTURE (09/06/2023 10:39 AM ARTIST REPRESENTATIVE) Color UA Yellow Straw, Yellow 09/06/2023 11:06 AM [facility] Clarity UA Clear Clear 09/06/2023 11:06 AM [facility] Specific Ponce UA 1.017 1.005 - 1.030 09/06/2023 11:06 AM [facility] pH UA 5.0 5.0 - 8.0 pH 09/06/2023 11:06 AM [facility] Protein UA Negative Negative 09/06/2023 11:06 AM [facility] Glucose UA Negative Negative 09/06/2023 11:06 AM [facility] Ketone UA Negative Negative 09/06/2023 11:06 AM [facility] Bilirubin UA Negative Negative 09/06/2023 11:06 AM [facility] Blood UA 3+(A) Negative 09/06/2023 11:06 AM [facility] Nitrite UA Negative Negative 09/06/2023 11:06 AM [facility] Leukocyte Esterase Negative Negative 09/06/2023 11:06 AM [facility] Urobilinogen UA Negative Negative mg/dL 09/06/2023 11:06 AM [facility] RBC UA 51-100(A) None Seen, 0-2, 3-5 /HPF 09/06/2023 11:06 AM [facility] WBC UA 0-5 None Seen, 0-5 /HPF 09/06/2023 11:06 AM [facility] Squamous Epithelial Cells UA 0-2 None Seen, 0-2, 3-5 /HPF 09/06/2023 11:06 AM [facility] Mucus UA 1+ /LPF 09/06/2023 11:06 AM [facility] Urine URINE SPECIMEN OBTAINED BY CLEAN CATCH PROCEDURE / Unknown Collection / Unknown 09/06/2023 10:39 AM ARTIST REPRESENTATIVE 09/06/2023 10:48 AM [facility] - 09/06/2023 11:06 AM [facility] Culture Not Indicated Mhd Flaco Stafford MD LAB - URINALYSIS ORD ERABLES Performing Organization Address City/State/[facility] Co de Phone Number [facility] [address] [place] [address], [facility] [phone] * (ABNORMAL) DIFFERENTIAL MANUAL (09/06/2023 12:26 AM ARTIST REPRESENTATIVE) Neutrophil % 7(L) 41 - 74 % 09/06/2023 3:29 AM [facility] Lymphocyte % 83(H) 17 - 47 % 09/06/2023 3:29 AM [facility] Monocyte % 1(L) 3 - 11 % 09/06/2023 3:29 AM [facility] Eosinophil % 1 0 - 7 % 09/06/2023 3:29 AM [facility] Blasts % 8(H) 0% % 09/06/2023 3:29 AM [facility] Neutrophil Absolute 0.13(L) 1.60 - 7.50 x10E9/L 09/06/2023 3:29 AM [facility] Lymphocyte Absolute 1.58 1.00 - 4.40 x10E9/L 09/06/2023 3:29 AM [facility] Monocyte Absolute 0.02(L) 0.15 - 1.00 x10E9/L 09/06/2023 3:29 AM [facility] Eosinophil Absolute 0.02 0.00 - 0.60 x10E9/L 09/06/2023 3:29 AM [facility] RBC Morphology NORMAL 09/06/2023 3:29 AM [facility] Blood BLOOD SPECIMEN / Unknown Venipuncture / Unknown 09/06/2023 12:26 AM ARTIST REPRESENTATIVE 09/06/2023 12:41 AM ARTIST REPRESENTATIVE Cheryl Cronin MD LAB - HEMATOLOGY ORD ERABLES [address] [address], [place] [phone] * (ABNORMAL) HAPTOGLOBIN (09/06/2023 12:26 AM ARTIST REPRESENTATIVE) Pathologist [facility] Haptoglobin 272(H) 14 - 258 mg/dL 09/06/2023 1:57 AM [facility] Comment:Result obtained by jose de jesus ashby. Blood BLOOD SPECIMEN / Unknown Venipuncture / Unknown 09/06/2023 12:26 AM ARTIST REPRESENTATIVE 09/06/2023 12:37 AM ARTIST REPRESENTATIVE Cheryl Cronin MD LAB - CHEMISTRY ORDAzul NAIDU [address] [address], [place] [phone] * (ABNORMAL) RETIC COUNT (09/06/2023 12:26 AM ARTIST REPRESENTATIVE) Pathologist [facility] Reticulocyte Percent 0.93 0.50 - 2.40 % 09/06/2023 3:29 AM [facility] Reticulocyte Absolute 0.0229 0.0200 - 0.1100 x10E6/uL 09/06/2023 3:29 AM [facility] Ret-HE 39.1(H) 29.0 - 37.9 pg 09/06/2023 3:29 AM [facility] Immature Reticulocyte Fraction 9.4 1.8 - 15.2 % 09/06/2023 3:29 AM [facility] Blood BLOOD SPECIMEN / Unknown Venipuncture / Unknown 09/06/2023 12:26 AM ARTIST REPRESENTATIVE 09/06/2023 12:41 AM ARTIST REPRESENTATIVE Cheryl Cronin MD LAB - HEMATOLOGY ORD ERABLES [facility] [address] [place] [address], [place] [phone] * (ABNORMAL) LDH BLOOD (09/06/2023 12:26 AM ARTIST REPRESENTATIVE) LDH Total 322(H) 125 - 243 Units/L 09/06/2023 1:14 AM [facility] Blood BLOOD SPECIMEN / Unknown Venipuncture / Unknown 09/06/2023 12:26 AM ARTIST REPRESENTATIVE 09/06/2023 12:40 AM ARTIST REPRESENTATIVE Cheryl Cronin MD LAB - CHEMISTRY ORDE RABLES [facility] [address] [place] [address], [place] [phone] * PTT [facility] (09/06/2023 12:26 AM ARTIST REPRESENTATIVE) APTT 37.4 23.0 - 38.4 Seconds 09/06/2023 1:09 AM [facility] Comment:Suggested therapeuti c range for full dose I.V. unfractionated heparin therapy for venous thromboembolism is 71 to 109 seconds. Blood BLOOD SPECIMEN / Unknown Venipuncture / Unknown 09/06/2023 12:26 AM ARTIST REPRESENTATIVE 09/06/2023 12:41 AM ARTIST REPRESENTATIVE Cheryl Cronin MD LAB - COAGULATION OR DERABLES [address] [address], [place] [phone] * (ABNORMAL) PT-INR [facility] (09/06/2023 12:26 AM ARTIST REPRESENTATIVE) Pathologist [facility] PT 15.2(H) 12.1 - 14.8 Seconds 09/06/2023 1:09 AM [facility] INR 1.2 See Comment 09/06/2023 1:09 AM [facility] Comment:The suggested therap eutic range for standard coumadin (warfarin) therapy is an INR of 2.0-3.0. For high-risk patients (Mechanical Mitral Valve Prosthesis, etc.), the suggested prophylactic therapeutic range is an INR of 2.5-3.5. Blood BLOOD SPECIMEN / Unknown Venipuncture / Unknown 09/06/2023 12:26 AM ARTIST REPRESENTATIVE 09/06/2023 12:41 AM ARTIST REPRESENTATIVE Cheryl Cronin MD LAB - COAGULATION OR DERABLES Performing Organization Address City/[facility]/ZIP Co de Phone Number [address] [address], [place] [phone] * (ABNORMAL) FIBRINOGEN ACTIVITY (09/06/2023 12:26 AM ARTIST REPRESENTATIVE) [facility] Fibrinogen Clauss 431(H) 200 - 400 mg/dL 09/06/2023 1:09 AM [facility] Blood BLOOD SPECIMEN / Unknown Venipuncture / Unknown 09/06/2023 12:26 AM ARTIST REPRESENTATIVE 09/06/2023 12:41 AM ARTIST REPRESENTATIVE Cheryl Cronin MD LAB - COAGULATION OR DERABLES [facility] [address] [place] [address], [place] [phone] * (ABNORMAL) D-DIMER (09/06/2023 12:26 AM ARTIST REPRESENTATIVE) [facility] D-Dimer Quantitative 1.61(H) <=0.50 mcg/mL FEU 09/06/2023 1:11 AM ARTIST REPRESENTATIVE [facility] Comment: In the absence of clinical [...] SPECIMEN / Unknown Venipuncture / Unknown 09/06/2023 12:26 AM ARTIST REPRESENTATIVE 09/06/2023 12:41 AM ARTIST REPRESENTATIVE Cheryl Cronin MD LAB - COAGULATION OR DERABLES [facility] [address] [place] [address], [facility] [phone] * (ABNORMAL) COMPREHENSIVE METABOLIC PANEL (09/06/2023 12:26 AM ARTIST REPRESENTATIVE) BUN 12 7 - 26 mg/dL 09/06/2023 1:14 AM ARTIST REPRESENTATIVE [facility] Creatinine 0.72 0.56 - 0.96 mg/dL 09/06/2023 1:14 AM [facility] Sodium 138 136 - 145 mmol/L 09/06/2023 1:14 AM [facility] Potassium 3.8 3.5 - 4.5 mmol/L 09/06/2023 1:14 AM [facility] Chloride 107 98 - 107 mmol/L 09/06/2023 1:14 AM [facility] CO2 24 22 - 29 mmol/L 09/06/2023 1:14 AM [facility] Glucose 110 70 - 115 mg/dL 09/06/2023 1:14 AM [facility] Calcium 8.7 8.4 - 10.2 mg/dL 09/06/2023 1:14 AM [facility] Protein Total 7.1 6.0 - 8.3 g/dL 09/06/2023 1:14 AM [facility] Albumin 3.1(L) 3.4 - 5.0 g/dL 09/06/2023 1:14 AM [facility] Bilirubin Total 0.4 0.2 - 1.2 mg/dL 09/06/2023 1:14 AM [facility] Alkaline Phosphatase 62 40 - 150 U/L 09/06/2023 1:14 AM [facility] ALT 39 5 - 55 U/L 09/06/2023 1:14 AM [facility] AST 35(H) 5 - 34 U/L 09/06/2023 1:14 AM [facility] Anion Gap 7 6 - 16 09/06/2023 1:14 AM [facility] BUN/Creatinine Ratio 17 7 - 23 09/06/2023 1:14 AM [facility] Osmolality Calculated 286 275 - 295 mOsm/kg 09/06/2023 1:14 AM [facility] Albumin/Globulin Ratio 0.8(L) 1.1 - 2.3 09/06/2023 1:14 AM [facility] eGFR by CKD-EPI >90 >=90 mL/min/1.7 3 m2 09/06/2023 1:14 AM [facility] Blood BLOOD SPECIMEN / Unknown Venipuncture / Unknown 09/06/2023 12:26 AM ARTIST REPRESENTATIVE 09/06/2023 12:40 AM [facility] Cheryl Cronin MD LAB - CHEMISTRY ORDE ELYSIA [facility] [address] [place] [id number] [phone] * (ABNORMAL) CBC W AUTO DIFFERENTIAL (09/06/2023 12:26 AM ARTIST REPRESENTATIVE) WBC 1.9(L) 4.0 - 10.7 x10E9/L 09/06/2023 3:30 AM [facility] RBC Count 2.46(L) 3.90 - 5.20 x10E12/L 09/06/2023 3:30 AM [facility] Hemoglobin 8.0(L) 11.9 - 15.8 g/dL 09/06/2023 3:30 AM [facility] Hematocrit 22.1(L) 34.8 - 46.1 % 09/06/2023 3:30 AM [facility] MCV 89.8 80.0 - 98.0 fL 09/06/2023 3:30 AM [facility] MCH 32.5 26.7 - 33.6 pg 09/06/2023 3:30 AM [facility] MCHC 36.2 31.7 - 36.3 g/dL 09/06/2023 3:30 AM [facility] RDW-CV 14.6 11.3 - 14.8 % 09/06/2023 3:30 AM [facility] Platelet Count 26(L) 150 - 420 x10E9/L 09/06/2023 3:30 AM [facility] MPV 11.4 7.8 - 11.4 fL 09/06/2023 3:30 AM [facility] Preliminary Absolute Neutrophil 0.16(L) 1.60 - 7.50 x10E9/L 09/06/2023 3:30 AM [facility] Blood BLOOD SPECIMEN / Unknown Venipuncture / Unknown 09/06/2023 12:26 AM ARTIST REPRESENTATIVE 09/06/2023 12:41 AM ARTIST REPRESENTATIVE Cheryl Cronin MD LAB - HEMATOLOGY ORD [address] [place] [address], [facility] [phone] * ECHO COMPLETE W BUBBLE STUDY (09/05/2023 3:51 PM ARTIST REPRESENTATIVE) [facility] Signature BSA [id number] m2 SSM CV FUJI PACS LV biplane EF 59 54 - 74 % SSM CV FUJI PACS LV A2C EF 55 52 - 76 % SSM CV FUJ I PACS LV A4C EF 59 46 - 78 % SSM CV FUJ I PACS LV stroke vol BP 33.9 mL SSM CV FUJI PACS LV stroke vol BP index 14.4 mL/m2 SSM CV FUJI PACS LV stroke vol 2D teich 28.175 ml SSM CV FUJI PACS LV Stroke Index 2D Teich 11.97 mL/m2 SSM CV FUJI PACS LV stroke vol index A4C MOD 26.159 ml/m2 SSM CV FUJI PACS LVIDd 3.42 3.8 - 5.2 cm SSM CV FUJI PACS LVIDs 2.40 2.2 - 3.5 cm SSM CV FUJI PACS IVSd 2D 1.317 0.6 - 0.9 cm SSM CV FUJI PACS LVPWd 1.34 0.6 - 0.9 cm SSM CV FUJI PACS Fractional Shortening 2D 30 28 - 44 % SSM CV FUJI PACS LV ESV BP 23.559 14 - 42 mL SSM CV FU JI PACS LV ESV index BP 10.0 8 - 24 mL/m2 SSM CV FUJI PACS LV ESV A2C 18.255 10 - 54 mL SSM CV F UJI PACS LV ESV index A2C 7.75 6 - 30 mL/m2 SSM CV FUJI PACS LV EDV BP 57.448 46 - 106 mL SSM CV FUJI PACS LV ESV A4C 29.435 12 - 60 mL SSM CV F UJI PACS LV ESV index A4C 12.50 7 - 35 mL/m2 SSM CV FUJI PACS LV EDV index BP 24.4 29 - 61 mL/m2 SSM CV FUJI PACS LV EDV A2C 65.495 41 - 133 mL SSM CV FUJI PACS LV EDV index A2C 27.82 26 - 74 mL/m2 [facility] A4C 44.415 mL SSM CV FU JI PACS LV ESV 2D 20.048 14 - 42 mL SSM CV FU JI PACS LV EDV index A4C 18.86 30 - 82 mL/m2 SSM CV FUJI PACS LV ESV index 2D 8.52 8 - 24 mL/m2 [facility] EDV 2D 48.224 46 - 106 mL [facility] LV EDV index 2D 20.48 29 - 61 mL/m2 [facility] LVOT diam 2.2 cm SSM CV [facility] I PACS LVOT area 3.75 cm2 SSM CV [facility] I PACS LV RWT 0.782 SSM CV [facility] I PACS LV Wall A2C 7.996 cm SSM CV F U PACS LV Wall A4C 6.973 cm SSM CV F U PACS IVS/LVPW 0.983 SSM CV [facility] I PACS LV mass 2D 171.0244 66 - 150 g SSM CV F UJI PACS LV mass index 2D 72.64 44 - 88 g/m2 [facility] MV E pk tenn[place] 68.593 cm/s SSM CV F U PACS MV avg E/e' ratio 7.81 [facility] A pk [place] 60.823 cm/s SSM CV F U PACS MV E A ratio 1.13 [facility] E' lateral tenn[place] 13.264 cm/s [facility] MV DT 150 ms SSM CV [facility] I PACS MV E' septal tennille 6.566 cm/s [facility] E/e' septal 10.447 [facility] E/e' lateral 5.171 SSM CV [facility] PACS RVIDd 2.2 cm SSM CV [facility] I PACS RVOT VTI 20.656 cm SSM CV [facility] I PACS TV S' tenn[place] 12.458 cm/s SSM CV [facility] I PACS TAPSE 2.108 1.7 cm SSM CV [facility] I PACS RVOT pk tennille 1.15 m/s SSM CV F UJI PACS AV mn grad 6 mmHg SSM CV FU JI PACS AV pk grad 8 mmHg SSM CV FU JI PACS AV mn tennille 1.15 m/s SSM CV FUJ I PACS AV pk tenn[place] 1.45 m/s SSM CV FUJ I PACS AV VTI 23.909 cm SSM CV FUJ I PACS MV mn grad 1 mmHg SSM CV FU JI PACS MV pk grad 2 mmHg SSM CV FU JI PACS MV mn tenn[place] 0.55 m/s SSM CV FUJ I PACS MV pk tenn[place] 76.881 cm/s SSM CV FUJ I PACS MV VTI 14.76 cm SSM CV FUJ I PACS MV decel slope 458.525 cm/s2 SSM C V FUJI PACS RVOT mn grad 2 mmHg SSM CV FUJI PACS RVOT pk grad 4 mmHg SSM CV FUJI PACS PV mn grad 2 mmHg SSM CV FU JI PACS PV pk tenn[place] 133.204 cm/s SSM CV FUJ I PACS PV pk grad 3 mmHg SSM CV FU JI PACS PV VTI 23.806 cm SSM CV FUJ I PACS PV mn tennille 62.28 cm/s SSM CV FUJ I PACS Ascending aorta 2.96 cm SSM CV FUJI PACS [id number] 5.988 cm SSM CV FUJ I PACS [id number] 6.272 cm SSM CV FUJ I PACS Prox Asc Ao Diameter Index 1.259 cm SSM CV FUJI PACS LVIDs index 1.02 1.3 - 2.1 cm/m2 SSM CV FUJI PACS LV LVIDd index 1.45 2.3 - 3.1 cm/m2 SSM CV FUJI PACS Sinus of Valsalva 3.00 cm SSM CV FUJI PACS Sinus of valsalva index 1.27 cm/m2 SSM CV FUJI PACS Anatomical Region Laterality Modality Ultrasound Narrative 09/05/2023 9:30 PM ARTIST REPRESENTATIVE ?Technically difficult study ?Left??Ventricle: Left ventricle size is normal. Normal wall thickness. Normal systolic function. EF by 2D Brian biplane is 59%. Normal wall motion. Normal diastolic function. ?Right??Ventricle: Not well visualized, but appears mildly dilated. Normal systolic function. Left Ventricle Left ventricle size is normal. Normal wall thickness. Normal systolic function. EF by 2D Brian biplane is 59%. Normal wall motion. Normal diastolic function. Right Ventricle Not well visualized, but appears mildly dilated. Normal systolic function. Left Atrium Left atrium size is normal. Right Atrium Right atrium size is upper limits of normal. IVC/SVC IVC was not well visualized. Mitral Valve Valve structure is normal. No restricted motion. Trace regurgitation. No stenosis. Tricuspid Valve Valve structure is normal. No restricted motion. Trace regurgitation. Unable to estimate the pulmonary artery systolic pressure due to lack of envelope. No stenosis. Aortic Valve Not well visualized. No regurgitation. No stenosis. AV mean gradient is 6 mmHg. AV peak velocity is 1.45 m/s. Pulmonic Valve Not well visualized. Trace regurgitation. No stenosis. Ascending Aorta Normal sized sinus of Valsalva (aortic root) and ascending aorta. Sinus of Valsalva is 3.00 cm. Ascending Aorta is 2.96 cm. Sinus of Valsalva indexed to BSA is 1.27 cm/m2. Pericardium No pericardial effusion. Study Details Study quality was poor. A complete 2D, color Doppler, spectral Doppler and M- mode echocardiogram was performed. The apical, parasternal, subcostal and suprasternal views were obtained. Definity ultrasound enhancing agent used. Patient exhibited sinus rhythm. Technical difficulties due to patient's clinical status, patient's body habitus, poor acoustic windows and patient positioning. Graham Beltran MD ECHO CUPID * IR CENTRAL LINE INSERT TUNNEL (09/05/2023 1:50 PM ARTIST REPRESENTATIVE) Anatomical Region Laterality Modality Chest, Upper Extremity X-Ray Ang iography 09/05/2023 2:07 PM ARTIST REPRESENTATIVE Impressions 09/05/2023 2:10 PM ARTIST REPRESENTATIVE IMPRESSION: Successful Right internal jugular tunneled central venous catheter placement. > Interpreting Provider: Maria G Mortensen MD on 09/05/2023 2:10 PM Narrative 09/05/2023 2:10 PM ARTIST REPRESENTATIVE PROCEDURE: ??IR CENTRAL LINE INSERT TUNNEL DATE/TIME OF EXAM: ??09/05/2023 1:57 PM CLINICAL INFORMATION: None relevant/not provided if blank. 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 FLUOROSCOPY DOSE: mGy Reference air kerma (ka,r). Clinical Orthoptist:Maria G Mortensen MD Cvt Rn:Jakub Eller MD MEDICATIONS: None. ?? Contrast: None [...] This allowed the placement of a 5 [place] sheath which in turn allowed the placement [...] evaluation, please review the evaluation forms in [facility]. For details on monitored clinical parameters during the intra-service sedation time, please review the procedure nurse documentation in [facility]. I was present for the Entire procedure Procedure Note Maria G Mortensen MD - 09/05/2023 PROCEDURE: IR CENTRAL LINE INSERT TUNNEL DATE/TIME OF EXAM: 09/05/2023 1:57 PM CLINICAL INFORMATION: None relevant/not provided if blank. 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 FLUOROSCOPY DOSE: mGy Reference air kerma (ka,r). Clinical Orthoptist:Maria G Mortensen MD Cvt Rn:Jakub Eller MD MEDICATIONS: None. Contrast: None Complications: [...] guidance. This allowedthe placement of a 5 [place] sheath which in turn allowed the placement [...] response to care. Intra-service sedation start time [id number] and end time was 1353 during which I was present. Total physician intra-service sedation time was 28 minutes. For details on pre-moderate sedation and post-moderate sedation patient evaluation, please reviewthe evaluation forms in [facility]. For details on monitored clinical parameters during the intra-service sedation time, please review the procedurenurse documentation in [facility]. I was present for the Entire procedure IMPRESSION: Successful Right internal jugular tunneled central venous catheter placement. > Interpreting Provider: Maria G Mortensen MD on 09/05/2023 2:10 PM Cheryl Cronin MD IR ORDERABLES * LAB MISC TEST (NOT BLOOD) (09/05/2023 10:35 AM ARTIST REPRESENTATIVE) Test Name [id number] 09/14/2023 11:36 AM ARTIST REPRESENTATIVE [facility] REF [facility] NON INTERF Test Result See Scanned Report 09/14/2023 11:36 AM ARTIST REPRESENTATIVE [facility] RE[facility] NON INTERF Comment Ref Lab Gopath 09/14/2023 11:36 AM ARTIST REPRESENTATIVE [facility] REF LAB NON INTERF Other BONE MARROW SPECIMEN / Unknown Collection / Unknown 09/05/2023 10:35 AM ARTIST REPRESENTATIVE 09/05/2023 11:46 AM ARTIST REPRESENTATIVE Cheryl Cronin MD LAB - BODY FLUID ORD ERABLES [facility] REF [facility] NON INTERF [address] [place] [address], [place] [phone] * LAB MISC TEST (NOT BLOOD) (09/05/2023 10:35 AM ARTIST REPRESENTATIVE) Test Name FLT3 09/12/2023 11:48 AM ARTIST REPRESENTATIVE [facility] REF [facility] NON INTERF Test Result See Scanned Report 09/12/2023 11:48 AM ARTIST REPRESENTATIVE [facility] REF [facility] NON INTERF Comment Ref Lab [facility] 09/12/2023 11:48 AM ARTIST REPRESENTATIVE [facility] REF LAB NON INTERF Other BONE MARROW SPECIMEN / Unknown Collection / Unknown 09/05/2023 10:35 AM ARTIST REPRESENTATIVE 09/05/2023 11:46 AM ARTIST REPRESENTATIVE Cheryl Cronin MD LAB - BODY FLUID ORD ERABLES Performing Organization Address [facility] Co de Phone Number [facility] REF [facility] NON INTERF [address] [place] [address], [facility] [phone] * LAB MISC TEST (NOT BLOOD) (09/05/2023 10:35 AM ARTIST REPRESENTATIVE) Test Name NPM1 09/11/2023 1:09 PM ARTIST REPRESENTATIVE [facility] NON INTERF Test Result See Scanned Report 09/11/2023 1:09 PM ARTIST REPRESENTATIVE [facility] NON INTERF Comment Ref Lab Gopath 09/11/2023 1:09 PM ARTIST REPRESENTATIVE [facility] NON INTERF Other BONE MARROW SPECIMEN / Unknown Collection / Unknown 09/05/2023 10:35 AM ARTIST REPRESENTATIVE 09/05/2023 11:46 AM ARTIST REPRESENTATIVE Cheryl Croinn MD LAB - BODY FLUID ORD ERABLES Performing Organization Address [facility] de Phone Number [facility] NON INTERF [address] [place] [address], [facility] [phone] * MYELOID MALIGNANCIES MUTATION PNL (09/05/2023 10:35 AM ARTIST REPRESENTATIVE) Interpretation Myeloid Malignancy PNL See Note 09/24/2023 2:25 PM ARTIST REPRESENTATIVE [facility] ([facility]) Comment: Myeloid Malignancies Mutation Panel NGS Submitted diagnosis or diagnosis under consideration for variant interpretation: Acute myeloid leukemia, unspecified (AML unspec) TIER 1: Variants of Known Clinical Significance in Hematologic Malignancies 1. NPM1 [id number], [id number] ([id number]) VAF: 31.3% NPM1 encodes a phosphoprotein that is involved in diverse cellular processes, including ribosome biogenesis, genomic stability maintenance, epigenetics, cell proliferation, and programmed cell (11). Somatic mutations of NPM1 are found in approximately 25-35% of patients with de amy acute myeloid leukemia (AML) (11) (21), with a higher incidence (50-75%) in cytogenetically normal AML (10) (22). This particular NPM1 frameshift variant is a type A NPM1 exon 11 (formerly known as exon 12) mutation commonly found in AML patients (11) (13). NPM1-mutated AML with >10% blasts is a distinct disease entity (14). NPM1 mutations are associated with favorable prognosis in AML patients who do not have FLT3-internal tandem duplication (FLT3-ITD) mutations (10) (21) (24) and are associated with intermediate prognosis in AML patients with FLT3-ITD mutations (16). One study found that the NPM1-positive/PCE9-FDD-cxwuktki genotype predicts favorable outcomes in AML patients younger than 65 years but not in those older than 65 years (20). If clinically indicated, this patient can be monitored using NPM1 Mutation Detection by Quantitative RT-PCR (eXpresso test code [id number]). 2. TET2 c.4317dup, p.Xhm7733sr (NM_[id number]) VAF: 69.9% TET2 encodes an enzyme that is part of the Ten-Eleven Translocation (TET) family of dioxygenases that convert 4-qiikkx-czrvjxgj (5-mC) to 2-jbmyhdamwslou-pyyrvtui (5-hmC) in the process of DNA demethylation (27). Somatic TET2 mutations are found in approximately 20% of patients with AML (7) and in approximately 14% of patients with therapy-related AML (15). In myeloid malignancies, TET2 mutations often result in bkyv-au-yektovyw (7). This particular mutation is predicted to alter the normal function of TET2. The prognostic significance of somatic TET2 mutations in myeloid malignancies remains unclear. While multiple studies yielded conflicting prognostic significance in AML, two large cohort studies showed no independent association with overall survival (21) (9). 3. NRAS c.35G>A, p.Kyk19Yvf (NM_[id number]) VAF: 5.2% MELQUIADES genes (KRAS and NRAS) encode a family of membrane-associated signal-transduction proteins involved in regulating cell growth (4) (5). Collectively, MELQUIADES mutations are found in 12-25% of AML patients (6) (30) (31), including 16-18% of AML patients with inv(16) and 5-6% of AML patients with t(8; 21) (4).Germline MELQUIADES mutations have been reported in RASopathies, including in less than 5% of individuals with [place] syndrome, and these individuals are at increased risk for development of a myeloid neoplasm (1). Most MELQUIADES mutations occur at codons 12, 13, 61, and 146 and cause activation of the MELQUIADES-ERK pathway. This particular missense mutation has been reported in hematologic malignancies (8). MELQUIADES mutation status does not correlate with clinical outcome in AML patients (4) (12) (21) (23) (28) (3). NRAS codon 12 and 13 mutations predict better overall survival in AML patients with concurrent NPM1 and DNMT3A mutations (21). TIER 2: Variants of Unknown Clinical Significance in Hematologic Malignancies 1. FLT3 c.2542G>C, p.Ird969Ata (NM_[id number]) VAF: 8.2% FLT3 encodes a receptor tyrosine kinase involved in regulating the development of hematopoietic stem cells (26). FLT3 tyrosine kinase domain (FLT3-TKD) mutations are found in 5-11% of patients with AML and are clinically distinct from FLT3 internal tandem duplication (FLT3-ITD)-type mutations (2) (18) (19) (25) (29). This particular variant within the kinase domain has not been reported in lymphoid malignancies but has been reported twice in myeloid malignancies (17) (32), to the best of our knowledge. In vitro functional studies suggest that this variant may be resistant to some FLT3 inhibitors when found with a FLT3-ITD (32). The exact functional consequences of this particular variant in this context are unknown. The clinical significance, if any, is uncertain. References 1: Partha MP, ??Juliana DB, ??Astrid GARCIA et al, Jonathan Syndrome. ??1992. PMID:[id number] 2: Halima U, ??Billie C, ??Ori W et al, Prognostic relevance of FLT3-TKD mutations in AML: the combination matters--an analysis of 3082 patients. Blood 2008. PMID:[id number] 3: Lottie T, ??Morgan CANALES, ??Cricket CHANDLER et al, Detectable FLT3-ITD or MELQUIADES mutation at the time of transformation from MDS to AML predicts for very poor outcomes. Leuk Res 2015. PMID:[id number] 4: Sammy WASHINGTON, ??Mary Ellen RAMÍREZ, ??Sobeida R et al, MELQUIADES mutation in acute myeloid leukemia is associated with distinct cytogenetic subgroups but does not influence outcome in patients younger than 60 years. Blood 2005. PMID:[id number] 5: Jane BS, Fabi K, Targeting Melquiades in myeloid leukemias. Clin Cancer Res 2008. PMID:[id number] 6: Cancer [facility] [facility], ??Love CALDERON, ??Williams Montoya et al, Genomic and epigenomic landscapes of adult de amy acute myeloid leukemia. N Engl J Med 2013. PMID:64501544 7: Alberto G, ??Toy WOODS, ??Aicha KIM et al, Clinical, molecular, and prognostic correlates of number, type, and functional localization of TET2 mutations in chronic myelomonocytic leukemia (CMML)-a study of 1084 patients. Leukemia 2020. PMID:[id number] 8: COSMIC: [email or web address] 9: Jorge F, ??Jose B, ??Yan F et al, TET2 mutations in cytogenetically normal acute myeloid leukemia: clinical implications and evolutionary patterns. Genes Chromosomes Cancer 2014. PMID:16578662 10: Ayleen B, Jessica P, Alexandria MP, Acute myeloid leukemia with mutated NPM1: diagnosis, prognosis and therapeutic perspectives. Curr Opin Oncol 2009. PMID:[id number] 11: Alicia Jimenez, ??Mitchel IVAN, ??Donald STRICKLAND et al, Significance of NPM1 Gene Mutations in AML. Int J Mol Sci 2020. PMID:[id number] 12: Bg T, ??Eliel C, ??Jonathan Jimenez et al, Activation of the MELQUIADES pathway is predictive for a chemosensitive phenotype of acute myelogenous leukemia blasts. Clin Cancer Res 2005. PMID:63947583 13: Joan Jimenez, ??Sobeida RK, ??Roc IVAN et al, Assessment of Minimal Residual Disease in Standard-Risk AML. N Engl J Med 2016. PMID:[id number] 14: Rancho KINNEY, ??Jennifer Liang, ??Frank Carver et al, The 5th edition of the World Health Organization Classification of Haematolymphoid Tumours: Myeloid and Histiocytic/Dendritic Neoplasms. Leukemia 2021. PMID:[id number] 15: Diana CARLSON, ??Jessie BG, ??Adriane Liang et al, Acute myeloid leukemia ontogeny is defined by distinct somatic mutations. Blood 2015. PMID:[id number] 16: Rosen Y, ??He P, ??Silas F et al, Prognostic significance of NPM1 mutations in acute myeloid leukemia: A meta-analysis. Mol Clin Oncol 2014. PMID:20996741 17: Sarah LJ, ??Kumar MARTINEZ, ??Brittney Erickson et al, Precision Medicine in Children and Young Adults with Hematologic Malignancies and Blood Disorders: The [facility] Experience. Front Pediatr 2017. PMID:[id number] 18: Froilan AJ, ??Pancho TURNER, ??Sobeida RK et al, FLT3 tyrosine kinase domain mutations are biologically distinct from and have a significantly more favorable prognosis than FLT3 internal tandem duplications in patients with acute myeloid leukemia. Blood 2007. PMID:65529671 19: Fernandez I, ??Isidro G, ??Randall P et al, Incidence and prognostic value of FLT3 internal tandem duplication and D835 mutations in acute myeloid leukemia. Haematologica 2003. PMID:[id number] 20: Santana F, ??Wei M, ??Vanessa Grover et al, Prognostic significance of NPM1 mutations in the absence of FLT3-internal tandem duplication in older patients with acute myeloid leukemia: a SWOG and UK National Cancer Research [place]/[employer] Research [place] report. J Clin Oncol 2015. PMID:[id number] 21: Papaemmanuil E, ??Gerstung M, ??Rebeka Portillo et al, Genomic Classification and Prognosis in Acute Myeloid Leukemia. N Engl J Med 2016. PMID:61232548 22: Chela F, ??Chela A, ??Adore Grover et al, Molecular profiling of patients with cytogenetically normal acute myeloid leukemia and hyperleukocytosis. Cancer 2021. PMID:[id number] 23: M, ??Juliette PATE, ??Bindu Bass et al, Prognostic significance of N-MELQUIADES and K-MELQUIADES mutations in 232 patients with acute myeloid leukemia. Haematologica 2004. PMID:[id number] 24: Heather S, ??Halima U, ??Ori W et al, Prognostic impact of FLT3-ITD load in NPM1 mutated acute myeloid leukemia. Leukemia 2011. PMID:[id number] 25: Sarapaul MH, ??Erma A, ??Liu K et al, Prognostic significance of FLT3 ITD and D835 mutations in AML patients. Hematol J 2003. PMID:40793132 26: Yo D, FLT3 mutations: biology and treatment. Hematology Am Soc Hematol Educ Program 2006. PMID:75994990 27: Jennifer E, ??Nikolas OA, ??Joby A et al, The Ten-Eleven Translocation-2 (TET2) gene in hematopoiesis and hematopoietic diseases. Leukemia 2014. PMID:83991533 28: Lilly KRAMER, ??Frieda KJ, ??Jreemy S et al, FLT3, MELQUIADES, and TP53 mutations in elderly patients with acute myeloid leukemia. Blood 2001. PMID:[id number] 29: Eliel C, ??Paramjit C, ??Clayton Long et al, Analysis of FLT3-activating mutations in 979 patients with acute myelogenous leukemia: association with JUDY subtypes and identification of subgroups with poor prognosis. Blood 2002. PMID:[id number] 30: Oskar LANDA, ??Yobany H, ??Frederick CAMARILLO et al, High-throughput sequencing screen reveals novel, transforming MELQUIADES mutations in myeloid leukemia patients. Blood 2009. PMID:[id number] 31: Oskar LANDA, ??Marlyn CE, ??Katrin Erickson et al, Functional genomic landscape of acute myeloid leukaemia. Nature 2018. 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 Leukemia 2010. PMID:[id number] This result has been reviewed and approved by Nannette Collins M.D. Low coverage regions: Listed below are regions where the average sequencing depth (number of times a particular nucleotide is sequenced) in at least 20% of the wowdcj-ry-yurjeubv is less than our stringent cutoff of 300. Sensitivity for detection of low allelic frequency variants may be reduced in areas with reduced depth of coverage. None BACKGROUND INFORMATION: Myeloid Malignancies Mutation ?Panel by [...] NOTCH1; NPM1*; NRAS; NSD1; PHF6; PIGA; PPM1D; BPRJ21D; PRPF8; PTPN11; RAD21; RUNX1; SAMD9; SAMD9L; SETBP1; [...] developed and its performance characteristics determined by [facility]. It has not been cleared or approved by the U.S. Food and Drug Administration. This test was performed in a CLIA-certified laboratory and is intended for clinical purposes. Myeloid Malignancy Dx Aml Unspec 09/24/2023 2:25 PM ARTIST REPRESENTATIVE [facility] ([facility]) Myeloid Malignancy Panel Specimen Bone Marrow 09/24/2023 2:25 PM ARTIST REPRESENTATIVE [facility] ([facility]) EER Myeloid Malignancy See Note 09/24/2023 2:25 PM ARTIST REPRESENTATIVE [facility] ([facility]) Comment: Authorized individuals can access the [facility] Enhanced Report using the following link: [email or web address] Performed By: [facility] [address] [place] [address] Game Technician: Ebenezer Shipman MD, PhD CLIA Number: [id number] Other BONE MARROW SPECIMEN / Unknown Collection / Unknown 09/05/2023 10:35 AM ARTIST REPRESENTATIVE 09/05/2023 11:35 AM ARTIST REPRESENTATIVE Cheryl Cronin MD LAB - PATHOLOGY/CYTO LOGY ORDERABLES Performing Organization Address [facility]/State/ZIP Co de Phone Number [facility]) [address] [place] [address], [facility] * FISH AML PANEL BLOOD OR BM RFLX PML/BENY (09/05/2023 10:35 AM ARTIST REPRESENTATIVE) Pathologist [facility] FISH AML Panel See Note Normal 09/08/2023 3:29 PM ARTIST REPRESENTATIVE [facility] ([facility]) Comment: Test Performed: Acute Myeloid Leukemia Panel by FISH (FISHAML) Specimen Type: Bone Marrow Indication for Testing: 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 RESULT Normal FISH Result inv(3) or t(3;3) RPN1::MECOM Fusion: ??not detected Deletion 5q: ??not detected Monosomy 7: ??not detected Deletion 7q: ??not detected t(8;21) RUNX1::IAOZ5K1 Fusion: ??not detected 11p15 (NUP98) Rearrangement: ??not detected 11q23 (KMT2A) Rearrangement: ??not detected inv(16) or t(16;16) CBFB::MYH11 Fusion: ??not detected INTERPRETATION There was no evidence of RPN1::MECOM fusion due to 3q21/3q26.2 inversion or translocation, deletion 5q31, monosomy 7, deletion 7q31, RUNX1::QPIJ7H8 fusion due to translocation (8;21)(q21.3;q22), 11p15 (NUP98) rearrangement, 11q23 KMT2A (MLL) rearrangement, or CBFB::MYH11 fusion due to either 16p13.1/16q22 inversion or translocation. This analysis was performed with the AML panel probes RPN1/MECOM, D5S23/EGR1, D7Z1/G8I175, RUNX1/HOBK5J3 ([employer]), NUP98 and CBFB-MYH11 ([employer]), and MLL (KMT2A) ([employer]). A total of 200 cells were scored for each probe. Cytogenomic Nomenclature (ISCN): nuc jung(RPN1,MECOM,D5S23,EGR1,D7Z1,P5H354,VVHD5N3,NUP98,KMT2A,MYH11,CBF B,RUNX1)x2[200' This result has been reviewed and approved by Kimberly Alaniz, Ph.D., [facility] A portion of this analysis was performed at the following location(s): [facility] CG-MO#1 INTERPRETIVE INFORMATION: AML Panel by FISH This test was developed and its performance characteristics determined by [facility]. It has not been cleared or approved by the US Food and Drug Administration. This test was performed in a CLIA certified laboratory and is intended for clinical purposes. EER AML Panel by FISH See Note 09/08/2023 3:29 PM [facility] ([facility]) Comment: Authorized individuals can access the [employer] Enhanced Report using the following link: [email or web address] Performed By: [facility] [address] [place] [address] Game Technician: Ebenezer Shipman MD, PhD CLIA Number: [id number] Other BONE MARROW SPECIMEN / Unknown Collection / Unknown 09/05/2023 10:35 AM ARTIST REPRESENTATIVE 09/05/2023 11:35 AM ARTIST REPRESENTATIVE Cheryl Cronin MD LAB - PATHOLOGY/CYTO LOGY ORDERABLES [facility]) [address] * FISH PML/BENY PANEL (09/05/2023 10:35 AM ARTIST REPRESENTATIVE) EER PML/BENY Translocation by Fish See Note 09/07/2023 10:08 AM [facility] ([facility]) Comment: Authorized individuals can access the [employer] Enhanced Report using the following link: [email or web address] Performed By: [facility] [address] [place], [place] [id number] Game Technician: Ebenezer Shipman MD, PhD CLIA Number: [id number] PML/BENY Translocation by FISH See Note 09/07/2023 10:08 AM [facility] ([facility]) Comment: Test Performed: PML-BENY Translocation by FISH (FISH PML) Specimen Type: Bone Marrow Indication for Testing: Acute leukemia of unspecified cell type not having achieved remission RESULT Normal FISH Result t(15;17) PML::BENY ??Fusion: ??not detected INTERPRETATION There was no evidence of PML::BENY fusion due to translocation (15;17)(q24;q21). This analysis was performed with the PML/BENY probes ([employer]). A total of 200 cells were scored. Cytogenomic Nomenclature (ISCN): nuc jung(PML,BENY)x2[200' This result has been reviewed and approved by Kimberly Alaniz, Ph.D., [facility] INTERPRETIVE INFORMATION: PML/BENY Translocation by FISH This test was developed and its performance characteristics determined by [facility] The [address] travel. It has not been cleared or approved by the US Food and Drug Administration. This test was performed in a CLIA certified laboratory and is intended for clinical purposes. Other BONE MARROW SPECIMEN / Unknown Collection / Unknown 09/05/2023 10:35 AM ARTIST REPRESENTATIVE 09/05/2023 11:35 AM ARTIST REPRESENTATIVE Cheryl Cronin MD LAB - PATHOLOGY/CYTO LOGY ORDERABLES [facility] ([facility]) [address] [place] [address], [facility] * FLOW CYTOMETRY BONE MARROW (09/05/2023 10:35 AM ARTIST REPRESENTATIVE) Case Report Flow Cytometry ?Case: [id number] ? Authorizing Provider: ??Cheryl Crnoin MD ? Collected: ? 09/05/2023 10:35 AM ? Ordering Location: ? [facility] 7N ACUTE ? Received: ?09/05/2023 11:35 AM ? Pathologist: ? Yamil Coles MD ? Specimen: ?Bone Marrow ? 09/05/2023 3:47 PM [facility] Final Diagnosis Bone marrow, flow cytometric immunophenotypic analysis: - Acute myeloid leukemia. - See interpretation. 09/05/2023 3:47 PM [facility] Flow Cytometry Interpretation Viability: 99% Lymphocytes: 13% B-cells: 14% of the lymphocytes, polytypic, kappa:lambda ratio 1.8:1 T-cells: 77% % of the lymphocytes, no immunophenotypic aberrancy detected Dim CD45 Region: 78%. Expansion of the dim CD45 region by an abnormal blast population expressing CD13, CD33, CD117, and CD11c. The blasts lack expression of CD34, CD2, CD5, CD7, CD10, CD11b, CD14, CD19, CD20, CD56, and CD64. By CD117, approximately 70% of all events analyzed are blasts. Monocytes: 0% Granulocytes: 9%. Few with left shift (decreased expression of CD11b), and decreased expression of CD10 A bone marrow aspirate smear prepared from the flow cytometry specimen has been reviewed for automotive quality manager purposes. 09/05/2023 3:47 PM [facility] Flow Cytometry Results Differential Result Comment Flow Cell Count /uL 56,000 Total Viability % 99.0 Lymphocytes % 13 Dim CD45 Region % 78 Monocytes % 0 Granulocytes % 9 09/05/2023 3:47 PM [facility] Reason for test Acute leukemia of unspecified cell type not having achieved remission ([facility]) 09/05/2023 3:47 PM [facility] Client Specimen ID # [id number] 09/05/2023 3:47 PM [facility] Number of markers 19 were performed. A-2 Flow CD10 A-3 Flow CD13 A-5 Flow CD20 A-11 Flow CD2 A-13 Flow CD14 A-16 Flow CD117 A-17 Flow CD11b A-18 Flow CD11c A-1 Flow CD5 A-4 Flow CD19 A-6 Flow CD33 A-7 Flow CD34 A-8 Flow CD45 A-12 Flow CD7 A-14 Flow CD56 A-15 Flow CD64 A-9 [place]+CD19+ A-10 Lambda+CD19+ A-19 Flow HLA-DR 09/05/2023 3:47 PM [facility] Pathologist Location at [facility] 09/05/2023 3:47 PM [facility] Disclaimer Test performed at [facility], [address] [place] [address], [facility]. *The established laboratory minimum viability is 70%. [...] qualified to perform high complexity clinical testing. 09/05/2023 3:47 PM [facility] Embedded Images 3:47 PM [facility] Pathology/Cytolo gy BONE MARROW SPECIMEN / Unknown Collection / Unknown 09/05/2023 10:35 AM ARTIST REPRESENTATIVE 09/05/2023 11:35 AM ARTIST REPRESENTATIVE Cheryl Cronin MD LAB - PATHOLOGY/CYTO LOGY ORDERABLES [facility] [address] [place] [address]. [address] [phone] * CHROMOSOME ANALYSIS BONE MARROW PANEL (09/05/2023 10:35 AM ARTIST REPRESENTATIVE) Chromosome Analysis Bone Marrow See Note Normal 09/11/2023 2:32 PM ARTIST REPRESENTATIVE [facility] ([facility]) Comment: Test Performed: Chromosome Analysis Specimen [...] technology utilized in this study. NOTE: FISH AML and PML analysis was performed on this sample and reported under [facility] accession [id number] and [id number]. FISH results were NORMAL. This result has been reviewed and approved by Kimberly Alaniz, Ph.D., [facility] INTERPRETIVE INFORMATION: Chromosome Analysis, Bone Marrow This test was developed and its performance characteristics determined by [facility]. It has not been cleared or approved by the US Food and Drug Administration. This test was performed in a CLIA certified laboratory and is intended for clinical purposes. EER Chromosome Analysis Bone Marrow See Note 09/11/2023 2:32 PM [facility] ([facility]) Comment: Authorized individuals can access the [employer]press[employer] Enhanced Report using the following link: [email or web address] Performed By: [facility] [address] [place] [address] Game Technician: Ebenezer Sihpman MD, PhD CLIA Number: [id number] Bone marrow BONE MARROW SPECIMEN / Unknown 09/05/2023 10:35 AM ARTIST REPRESENTATIVE 09/05/2023 11:35 AM ARTIST REPRESENTATIVE Cheryl Cronin MD LAB - PATHOLOGY/CYTO LOGY ORDERABLES [facility] ([facility]) [address] [place] [address], [facility] * BONE MARROW BIOPSY (STL) (09/05/2023 10:35 AM ARTIST REPRESENTATIVE) Case Report Bone Marrow Patholog y Report ?Case: [id number] ? Authorizing Provider: ??Cheryl Cronin MD ? Collected: ? 09/05/2023 10:35 AM ? Ordering Location: ? [facility] 7N ACUTE ? Received: ?09/05/2023 11:35 AM ? Pathologist: ? Poonam Diamond MD ? Specimens: ?? A) - Bone Marrow Clot ? B) - Bone Marrow Core ? C) - Bone Marrow Aspirate ? D) - Blood Peripheral ? 09/09/2023 8:32 AM [facility] Final Diagnosis Bone marrow, aspirate, clot section, and core biopsy: - Acute myeloid leukemia - See description Peripheral blood smear: - Pancytopenia with circulating blasts - See description 09/09/2023 8:32 AM [facility] Comment Overall, the bone marrow specimen shows involvement by acute myeloid leukemia. Correlation with disease-defining clinical information and cytogenetic/molecular testing is required for further classification. 09/09/2023 8:32 AM [facility] Peripheral Smear Description Manual Differential Count (100 cells): 11% blasts, 9% neutrophils, 79% lymphocytes, and 1% monocytes. Leukocyte number: decreased. Granulocyte morphology: Blasts are seen and are intermediate in size with fine chromatin and scant to moderate amounts of cytoplasm. No Stef rods are seen. Mature granulocytes are occasionally seen. Lymphocyte morphology: normal. Erythrocyte number: decreased. Erythrocyte morphology: normocytic/normochrom ic. Anisopoikilocytosis: mild. Polychromasia: mild. Platelet number: decreased. Platelet morphology: normal. 09/09/2023 8:32 AM [facility] Bone Marrow Aspirate Differential count (200 cells): [...] special stain): decreased. Control is appropriately reactive. 09/09/2023 8:32 AM [facility] Bone Marrow Core Biopsy and Clot Section Description Specimen quality: adequate with ~1 cm of evaluable marrow. Cellularity: nearly 100% Nearly all of the marrow cellularity consists of immature mononuclear cells. Background myeloid and erythroid lineage cells are decreased. Megakaryocytes are increased in number and show clustering. No lymphoid aggregates are seen. Clot section marrow particles: absent. Clot section morphology: peripheral blood only. 09/09/2023 8:32 AM [facility] Flow Cytometry Summary Concurrent flow cytometry ([id number]) shows acute myeloid leukemia. 09/09/2023 8:32 AM [facility] Clinical History 38 year old woman with new diagnosis of AML. 09/09/2023 8:32 AM [facility] Gross Description The requisition and specimens are identified with the patient's name Selvin Mckeon . Received fresh, specimen A, bone marrow clot , consists of a syringe with less than 2 cc of red fluid. The specimen is placed in a mesh bag to show a 1.8 x 1.0 x 0.1 cm aggregate of multiple dark red blood clots and submitted in toto in cassette A1. Received in formalin, specimen B, 'bone marrow core', consists of a 1.7 cm length x 0.2 cm diameter red-brown cylindrical bone biopsy. The specimen is submitted in toto following 1 hour of Rapidcal Immuno decalcification in cassette B1. REJI 09/09/2023 8:32 AM [facility] Pathologist Location at [facility] 09/09/2023 8:32 AM [facility] Disclaimer The performance characteristics of all immunohistochemical and indirect immunofluorescence stains (if any) cited in this report were determined by the Histopathology Laboratory of [facility]. Some of these tests were developed [...] and interpreted by the attending (teaching) pathologist. 09/09/2023 8:32 AM ARTIST REPRESENTATIVE [facility] Embedded Images 09/09/2023 8:32 AM ARTIST REPRESENTATIVE [facility] Pathology/Cytology PERIPHERAL BLOOD / Unknown Collection / Unknown 09/05/2023 10:35 AM ARTIST REPRESENTATIVE 09/05/2023 11:35 AM ARTIST REPRESENTATIVE Miscellaneous samples (specimen) BONE MARROW SPECIMEN / Unknown 09/05/2023 10:35 AM ARTIST REPRESENTATIVE 09/05/2023 11:35 AM ARTIST REPRESENTATIVE Miscellaneous samples (specimen) SPECIMEN FROM BONE MARROW OBTAINED BY ASPIRATION / Unknown 09/05/2023 10:35 AM ARTIST REPRESENTATIVE 09/05/2023 11:35 AM ARTIST REPRESENTATIVE Miscellaneous samples (specimen) PERIPHERAL BLOOD / Unknown 09/05/2023 10:35 AM ARTIST REPRESENTATIVE 09/05/2023 2:16 PM ARTIST REPRESENTATIVE Cheryl Cronin MD LAB - PATHOLOGY/CYTO LOGY ORDERABLES Performing Organization Address City/[facility]/ZIP Co de Phone Number [facility] [address] [facility] [phone] * HCG URINE QUALITATIVE (09/05/2023 9:46 AM ARTIST REPRESENTATIVE) Pathologist [facility] Test Urine Negative Negative 09/05/2023 10:14 AM ARTIST REPRESENTATIVE [facility] Urine URINE / Unknown Collection / Unknown 09/05/2023 9:46 AM ARTIST REPRESENTATIVE 09/05/2023 9:50 AM ARTIST REPRESENTATIVE Maria G Mortensen MD LAB - URINALYSIS ORD ERABLES Performing Organization Address [facility]/ZIP Co de Phone Number [facility] [address] [phone], [facility] [phone] * (ABNORMAL) DIFFERENTIAL MANUAL (09/05/2023 9:09 AM ARTIST REPRESENTATIVE) Pathologist [facility] Neutrophil % 8(L) 41 - 74 % 09/05/2023 11:25 AM [facility] Lymphocyte % 77(H) 17 - 47 % 09/05/2023 11:25 AM [facility] Monocyte % 1(L) 3 - 11 % 09/05/2023 11:25 AM [facility] Eosinophil % 1 0 - 7 % 09/05/2023 11:25 AM [facility] Blasts % 13(H) 0% % 09/05/2023 11:25 AM [facility] Neutrophil Absolute 0.12(L) 1.60 - 7.50 x10E9/L 09/05/2023 11:25 AM [facility] Lymphocyte Absolute 1.16 1.00 - 4.40 x10E9/L 09/05/2023 11:25 AM [facility] Monocyte Absolute 0.02(L) 0.15 - 1.00 x10E9/L 09/05/2023 11:25 AM [facility] Eosinophil Absolute 0.02 0.00 - 0.60 x10E9/L 09/05/2023 11:25 AM [facility] RBC Morphology NORMAL 09/05/2023 11:25 AM [facility] Blood BLOOD SPECIMEN / Unknown Lab Venipuncture / Unknown 09/05/2023 9:09 AM ARTIST REPRESENTATIVE 09/05/2023 9:18 AM [facility] Cheryl Cronin MD LAB - HEMATOLOGY ORD ERABLES Performing Organization Address City/[facility] Co de Phone Number [address] [address] [phone] * (ABNORMAL) COMPREHENSIVE METABOLIC PANEL (09/05/2023 9:09 AM [facility]) [facility] BUN 9 7 - 26 mg/dL 09/05/2023 9:55 AM [facility] Creatinine 0.74 0.56 - 0.96 mg/dL 09/05/2023 9:55 AM [facility] Sodium 138 136 - 145 mmol/L 09/05/2023 9:55 AM [facility] Potassium 4.1 3.5 - 4.5 mmol/L 09/05/2023 9:55 AM [facility] Chloride 107 98 - 107 mmol/L 09/05/2023 9:55 AM [facility] CO2 26 22 - 29 mmol/L 09/05/2023 9:55 AM [facility] Glucose 95 70 - 115 mg/dL 09/05/2023 9:55 AM [facility] Calcium 9.1 8.4 - 10.2 mg/dL 09/05/2023 9:55 AM [facility] Protein Total 7.6 6.0 - 8.3 g/dL 09/05/2023 9:55 AM [facility] Albumin 3.3(L) 3.4 - 5.0 g/dL 09/05/2023 9:55 AM [facility] Bilirubin Total 0.4 0.2 - 1.2 mg/dL 09/05/2023 9:55 AM [facility] Alkaline Phosphatase 62 40 - 150 U/L 09/05/2023 9:55 AM [facility] ALT 38 5 - 55 U/L 09/05/2023 9:55 AM [facility] AST 38(H) 5 - 34 U/L 09/05/2023 9:55 AM [facility] Anion Gap 5(L) 6 - 16 09/05/2023 9:55 AM [facility] BUN/Creatinine Ratio 12 7 - 23 09/05/2023 9:55 AM [facility] Osmolality Calculated 284 275 - 295 mOsm/kg 09/05/2023 9:55 AM [facility] Albumin/Globulin Ratio 0.8(L) 1.1 - 2.3 09/05/2023 9:55 AM [facility] eGFR by CKD-EPI >90 >=90 mL/min/1.7 3 m2 09/05/2023 9:55 AM [facility] Blood BLOOD SPECIMEN / Unknown Lab Venipuncture / Unknown 09/05/2023 9:09 AM ARTIST REPRESENTATIVE 09/05/2023 9:18 AM [facility] Cheryl Cronin MD LAB - CHEMISTRY JON NAIDU [facility] Organization Address City/State/ZIP Co de Phone Number [address] [address], [place] [phone] * (ABNORMAL) LDH BLOOD (09/05/2023 9:09 AM ARTIST REPRESENTATIVE) Pathologist [facility] LDH Total 348(H) 125 - 243 Units/L 09/05/2023 9:55 AM [facility] Blood BLOOD SPECIMEN / Unknown Lab Venipuncture / Unknown 09/05/2023 9:09 AM ARTIST REPRESENTATIVE 09/05/2023 9:18 AM ARTIST REPRESENTATIVE Cheryl Cronin MD LAB - CHEMISTRY ORDE RABLES [address] [address], [facility] [phone] * (ABNORMAL) RETIC COUNT (09/05/2023 9:09 AM ARTIST REPRESENTATIVE) [facility] Reticulocyte Percent 1.03 0.50 - 2.40 % 09/05/2023 11:25 AM [facility] Reticulocyte Absolute 0.0277 0.0200 - 0.1100 x10E6/uL 09/05/2023 11:25 AM [facility] Ret-HE 39.4(H) 29.0 - 37.9 pg 09/05/2023 11:25 AM [facility] Immature Reticulocyte Fraction 5.0 1.8 - 15.2 % 09/05/2023 11:25 AM [facility] Blood BLOOD SPECIMEN / Unknown Lab Venipuncture / Unknown 09/05/2023 9:09 AM ARTIST REPRESENTATIVE 09/05/2023 9:18 AM ARTIST REPRESENTATIVE Cheryl Cronin MD LAB - HEMATOLOGY ORD ERABLES [address] [address], [place] [phone] * PTT [facility] (09/05/2023 9:09 AM ARTIST REPRESENTATIVE) Pathologist [facility] APTT 29.0 23.0 - 38.4 Seconds 09/05/2023 9:39 AM [facility] Comment:Suggested therapeuti c range for full dose I.V. unfractionated heparin therapy for venous thromboembolism is 71 to 109 seconds. Blood BLOOD SPECIMEN / Unknown Lab Venipuncture / Unknown 09/05/2023 9:09 AM ARTIST REPRESENTATIVE 09/05/2023 9:13 AM ARTIST REPRESENTATIVE Cheryl Cronin MD LAB - COAGULATION OR DERABLES Performing Organization Address City/[facility]/ZIP Co de Phone Number [facility] [address] [place] [address], [facility] [phone] * PT-INR [facility] (09/05/2023 9:09 AM [facility]) PT 14.1 12.1 - 14.8 Seconds 09/05/2023 9:39 AM [facility] INR 1.1 See Comment 09/05/2023 9:39 AM [facility] Comment:The suggested therap eutic range for standard coumadin (warfarin) therapy is an INR of 2.0-3.0. For high-risk patients (Mechanical Mitral Valve Prosthesis, etc.), the suggested prophylactic therapeutic range is an INR of 2.5-3.5. Blood BLOOD SPECIMEN / Unknown Lab Venipuncture / Unknown 09/05/2023 9:09 AM ARTIST REPRESENTATIVE 09/05/2023 9:13 AM ARTIST REPRESENTATIVE Cheryl Cronin MD LAB - COAGULATION OR DERABLES Performing Organization Address City/[facility]/ZIP Co de Phone Number [facility] [address] [place] [address], [facility] [phone] * (ABNORMAL) D-DIMER (09/05/2023 9:09 AM [facility]) D-Dimer Quantitative 1.48(H) <=0.50 mcg/mL FEU 09/05/2023 9:41 AM [facility] Comment: In the absence of clinical [...] Haematol. 145:24-33,2009. Blood BLOOD SPECIMEN / Unknown Lab Venipuncture / Unknown 09/05/2023 9:09 AM ARTIST REPRESENTATIVE 09/05/2023 9:13 AM ARTIST REPRESENTATIVE Cheryl Cronin MD LAB - COAGULATION OR DERABLES Performing Organization Address City/[facility]/ZIP Co de Phone Number [address] [address], [place] [phone] * MAGNESIUM BLOOD (09/05/2023 9:09 AM ARTIST REPRESENTATIVE) Magnesium 2.3 1.6 - 2.6 mg/dL 09/05/2023 9:55 AM ARTIST REPRESENTATIVE [facility] Blood BLOOD SPECIMEN / Unknown Lab Venipuncture / Unknown 09/05/2023 9:09 AM ARTIST REPRESENTATIVE 09/05/2023 9:18 AM ARTIST REPRESENTATIVE Cheryl Cronin MD LAB - CHEMISTRY ORDE RABLES [address] [address], [place] [phone] * (ABNORMAL) CBC W AUTO DIFFERENTIAL (09/05/2023 9:09 AM ARTIST REPRESENTATIVE) WBC 1.5(L) 4.0 - 10.7 x10E9/L 09/05/2023 11:25 AM [facility] RBC Count 2.69(L) 3.90 - 5.20 x10E12/L 09/05/2023 11:25 AM [facility] Hemoglobin 8.7(L) 11.9 - 15.8 g/dL 09/05/2023 11:25 AM [facility] Hematocrit 24.7(L) 34.8 - 46.1 % 09/05/2023 11:25 AM [facility] MCV 91.8 80.0 - 98.0 fL 09/05/2023 11:25 AM [facility] MCH 32.3 26.7 - 33.6 pg 09/05/2023 11:25 AM [facility] MCHC 35.2 31.7 - 36.3 g/dL 09/05/2023 11:25 AM [facility] RDW-CV 14.9(H) 11.3 - 14.8 % 09/05/2023 11:25 AM [facility] Platelet Count 32(L) 150 - 420 x10E9/L 09/05/2023 11:25 AM [facility] MPV 10.5 7.8 - 11.4 fL 09/05/2023 11:25 AM [facility] Preliminary Absolute Neutrophil 0.15(L) 1.60 - 7.50 x10E9/L 09/05/2023 11:25 AM [facility] Blood BLOOD SPECIMEN / Unknown Lab Venipuncture / Unknown 09/05/2023 9:09 AM ARTIST REPRESENTATIVE 09/05/2023 9:18 AM [facility] Cheryl Cronin MD LAB - HEMATOLOGY ORD ERABLES [facility] [address] [place] [phone], [facility] [phone] * (ABNORMAL) HAPTOGLOBIN (09/05/2023 9:08 AM ARTIST REPRESENTATIVE) Pathologist [facility] Haptoglobin 323(H) 14 - 258 mg/dL 09/05/2023 10:16 AM ARTIST REPRESENTATIVE [facility] Comment:Result obtained by jose de jesus ashby. Blood BLOOD SPECIMEN / Unknown Lab Venipuncture / Unknown 09/05/2023 9:08 AM ARTIST REPRESENTATIVE 09/05/2023 9:13 AM ARTIST REPRESENTATIVE Cheryl Cronin MD LAB - CHEMISTRY JON NAIDU [address] [address], [facility] [phone] * (ABNORMAL) LDH BLOOD (09/04/2023 5:27 AM ARTIST REPRESENTATIVE) LDH Total 323(H) 125 - 243 Units/L 09/04/2023 6:32 AM [facility] Blood BLOOD SPECIMEN / Unknown Lab Venipuncture / Unknown 09/04/2023 5:27 AM ARTIST REPRESENTATIVE 09/04/2023 6:05 AM ARTIST REPRESENTATIVE Graham Beltran MD LAB - CHEMISTRY JON NAIDU Performing Organization Address [facility]/ZIP Co de Phone Number [address] [address], [place] [phone] * URIC ACID BLOOD (09/04/2023 5:27 AM ARTIST REPRESENTATIVE) Uric Acid 4.6 2.6 - 6.0 mg/dL 09/04/2023 6:32 AM ARTIST REPRESENTATIVE [facility] Blood BLOOD SPECIMEN / Unknown Lab Venipuncture / Unknown 09/04/2023 5:27 AM ARTIST REPRESENTATIVE 09/04/2023 6:05 AM ARTIST REPRESENTATIVE Graham Beltran MD LAB - CHEMISTRY JON NAIDU Performing Organization Address City/[facility]/ZIP Co de Phone Number [address] [address], [place] [phone] * PHOSPHORUS BLOOD (09/04/2023 5:27 AM ARTIST REPRESENTATIVE) Phosphorus 4.3 2.9 - 5.1 mg/dL 09/04/2023 6:32 AM [facility] Blood BLOOD SPECIMEN / Unknown Lab Venipuncture / Unknown 09/04/2023 5:27 AM ARTIST REPRESENTATIVE 09/04/2023 6:05 AM ARTIST REPRESENTATIVE Graham Beltran MD LAB - CHEMISTRY JON NAIDU [address] [address], [facility] [phone] * MAGNESIUM BLOOD (09/04/2023 5:27 AM ARTIST REPRESENTATIVE) Magnesium 2.2 1.6 - 2.6 mg/dL 09/04/2023 6:32 AM [facility] Blood BLOOD SPECIMEN / Unknown Lab Venipuncture / Unknown 09/04/2023 5:27 AM ARTIST REPRESENTATIVE 09/04/2023 6:05 AM ARTIST REPRESENTATIVE Graham Beltran MD LAB - CHEMISTRY JON NAIDU [address] [address], [facility] [phone] * (ABNORMAL) COMPREHENSIVE METABOLIC PANEL (09/04/2023 5:27 AM ARTIST REPRESENTATIVE) BUN 8 7 - 26 mg/dL 09/04/2023 6:31 AM [facility] Creatinine 0.70 0.56 - 0.96 mg/dL 09/04/2023 6:31 AM [facility] Sodium 141 136 - 145 mmol/L 09/04/2023 6:31 AM [facility] Potassium 3.7 3.5 - 4.5 mmol/L 09/04/2023 6:31 AM [facility] Chloride 107 98 - 107 mmol/L 09/04/2023 6:31 AM [facility] CO2 27 22 - 29 mmol/L 09/04/2023 6:31 AM [facility] Glucose 89 70 - 115 mg/dL 09/04/2023 6:31 AM [facility] Calcium 8.7 8.4 - 10.2 mg/dL 09/04/2023 6:31 AM [facility] Protein Total 6.8 6.0 - 8.3 g/dL 09/04/2023 6:31 AM [facility] Albumin 2.9(L) 3.4 - 5.0 g/dL 09/04/2023 6:31 AM [facility] Bilirubin Total 0.3 0.2 - 1.2 mg/dL 09/04/2023 6:31 AM [facility] Alkaline Phosphatase 58 40 - 150 U/L 09/04/2023 6:31 AM [facility] ALT 24 5 - 55 U/L 09/04/2023 6:31 AM [facility] AST 25 5 - 34 U/L 09/04/2023 6:31 AM [facility] Anion Gap 7 6 - 16 09/04/2023 6:31 AM [facility] BUN/Creatinine Ratio 11 7 - 23 09/04/2023 6:31 AM [facility] Osmolality Calculated 290 275 - 295 mOsm/kg 09/04/2023 6:31 AM [facility] Albumin/Globulin Ratio 0.7(L) 1.1 - 2.3 09/04/2023 6:31 AM [facility] eGFR by CKD-EPI >90 >=90 mL/min/1.7 3 m2 09/04/2023 6:31 AM [facility] Blood BLOOD SPECIMEN / Unknown Lab Venipuncture / Unknown 09/04/2023 5:27 AM [facility] 09/04/2023 6:05 AM [facility] Graham Beltran MD LAB - CHEMISTRY ORDE ELYSIA [facility] [address] [place] [address], [facility] [phone] * PTT [facility] (09/04/2023 5:26 AM [facility]) APTT 30.8 23.0 - 38.4 Seconds 09/04/2023 6:41 AM [facility] Comment:Suggested therapeuti c range for full dose I.V. unfractionated heparin therapy for venous thromboembolism is 71 to 109 seconds. Blood BLOOD SPECIMEN / Unknown Lab Venipuncture / Unknown 09/04/2023 5:26 AM ARTIST REPRESENTATIVE 09/04/2023 6:06 AM ARTIST REPRESENTATIVE Graham Beltran MD LAB - COAGULATION OR DERABLES Performing Organization Address City/[facility]/ZIP Co de Phone Number [address] [address], [place] [phone] * PT-INR [facility] (09/04/2023 5:26 AM ARTIST REPRESENTATIVE) PT 13.7 12.1 - 14.8 Seconds 09/04/2023 6:41 AM ARTIST REPRESENTATIVE [facility] INR 1.1 See Comment 09/04/2023 6:41 AM ARTIST REPRESENTATIVE [facility] Comment:The suggested therap eutic range for standard coumadin (warfarin) therapy is an INR of 2.0-3.0. For high-risk patients (Mechanical Mitral Valve Prosthesis, etc.), the suggested prophylactic therapeutic range is an INR of 2.5-3.5. Blood BLOOD SPECIMEN / Unknown Lab Venipuncture / Unknown 09/04/2023 5:26 AM ARTIST REPRESENTATIVE 09/04/2023 6:06 AM ARTIST REPRESENTATIVE Graham Beltran MD LAB - COAGULATION OR DERABLES Performing Organization Address [facility]/ZIP Co de Phone Number [address] [address], [place] [phone] * (ABNORMAL) FIBRINOGEN ACTIVITY (09/04/2023 5:26 AM ARTIST REPRESENTATIVE) Fibrinogen Clauss 512(H) 200 - 400 mg/dL 09/04/2023 6:55 AM ARTIST REPRESENTATIVE [facility] Blood BLOOD SPECIMEN / Unknown Lab Venipuncture / Unknown 09/04/2023 5:26 AM ARTIST REPRESENTATIVE 09/04/2023 6:06 AM ARTIST REPRESENTATIVE Graham Beltran MD LAB - COAGULATION OR DERABLES Performing Organization Address City/[facility]/ZIP Co de Phone Number [address] [address], [place] [phone] * (ABNORMAL) D-DIMER (09/04/2023 5:26 AM ARTIST REPRESENTATIVE) [facility] D-Dimer Quantitative 1.33(H) <=0.50 mcg/mL FEU 09/04/2023 6:43 AM ARTIST REPRESENTATIVE [facility] Comment: In the absence of clinical [...] Haematol. 145:24-33,2009. Blood BLOOD SPECIMEN / Unknown Lab Venipuncture / Unknown 09/04/2023 5:26 AM ARTIST REPRESENTATIVE 09/04/2023 6:06 AM ARTIST REPRESENTATIVE Graham Beltran MD LAB - COAGULATION OR DERABLES [facility] [id number] [place] [address], [facility] [phone] * (ABNORMAL) DIFFERENTIAL MANUAL (09/04/2023 5:25 AM ARTIST REPRESENTATIVE) Neutrophil % 11(L) 41 - 74 % 09/04/2023 11:54 AM [facility] Lymphocyte % 78(H) 17 - 47 % 09/04/2023 11:54 AM [facility] Monocyte % 1(L) 3 - 11 % 09/04/2023 11:54 AM [facility] Eosinophil % 1 0 - 7 % 09/04/2023 11:54 AM [facility] Basophil % 2 0 - 2 % 09/04/2023 11:54 AM [facility] Blasts % 7(H) 0% % 09/04/2023 11:54 AM [facility] Neutrophil Absolute 0.21(L) 1.60 - 7.50 x10E9/L 09/04/2023 11:54 AM [facility] Lymphocyte Absolute 1.48 1.00 - 4.40 x10E9/L 09/04/2023 11:54 AM [facility] Monocyte Absolute 0.02(L) 0.15 - 1.00 x10E9/L 09/04/2023 11:54 AM [facility] Eosinophil Absolute 0.02 0.00 - 0.60 x10E9/L 09/04/2023 11:54 AM [facility] Basophil Absolute 0.04 0.00 - 0.13 x10E9/L 09/04/2023 11:54 AM [facility] RBC Morphology NORMAL 09/04/2023 11:54 AM [facility] Blood BLOOD SPECIMEN / Unknown Lab Venipuncture / Unknown 09/04/2023 5:25 AM ARTIST REPRESENTATIVE 09/04/2023 6:05 AM [facility] Graham Beltran MD LAB - HEMATOLOGY ORD ERABLES [facility] [address] [place] [address], [facility] [phone] * PATHOLOGY PERIPHERAL SMEAR REVIEW (09/04/2023 5:25 AM [facility]) Path Review Confirmed 09/05/2023 12:34 AM [facility] Blood BLOOD SPECIMEN / Unknown Lab Venipuncture / Unknown 09/04/2023 5:25 AM ARTIST REPRESENTATIVE 09/04/2023 6:05 AM ARTIST REPRESENTATIVE Narrative [facility] - 09/05/2023 12:34 AM ARTIST REPRESENTATIVE Clinical history: This 38 year-old female patient with recent development of pancytopenia was admitted to [facility] as a transfer from [facility]. [facility] heme/onc were notified of transfer to [facility] and are involved. Bone marrow flow cytometry was collected on 09/02/2023 (tested at [facility]). Results show 78% myeloid blasts, consistent with AML. 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 Recommend correlation with final results of bone marrow exam from 09/02/2023, including cytogenetics and molecular studies. Maria C Downing MD Attending Physician Transfusion Medicine and Clinical Pathology Graham Beltran MD LAB - PATHOLOGY/CYTO LOGY ORDERABLES [facility] [address] [place] [address] [phone] * (ABNORMAL) RETIC COUNT (09/04/2023 5:25 AM ARTIST REPRESENTATIVE) Reticulocyte Percent 0.93 0.50 - 2.40 % 09/04/2023 6:52 AM ARTIST REPRESENTATIVE [facility] Reticulocyte Absolute 0.0233 0.0200 - 0.1100 x10E6/uL 09/04/2023 6:52 AM ARTIST REPRESENTATIVE [facility] Ret-HE 38.3(H) 29.0 - 37.9 pg 09/04/2023 6:52 AM ARTIST REPRESENTATIVE [facility] Immature Reticulocyte Fraction 8.9 1.8 - 15.2 % 09/04/2023 6:52 AM [facility] Blood BLOOD SPECIMEN / Unknown Lab Venipuncture / Unknown 09/04/2023 5:25 AM ARTIST REPRESENTATIVE 09/04/2023 6:05 AM ARTIST REPRESENTATIVE Graham Beltran MD LAB - HEMATOLOGY ORD ERABLES [facility] [address] [place] [address], [facility] [phone] * (ABNORMAL) CBC W AUTO DIFFERENTIAL (09/04/2023 5:25 AM [facility]) WBC 1.9(L) 4.0 - 10.7 x10E9/L 09/04/2023 9:50 AM [facility] RBC Count 2.51(L) 3.90 - 5.20 x10E12/L 09/04/2023 9:50 AM [facility] Hemoglobin 8.1(L) 11.9 - 15.8 g/dL 09/04/2023 9:50 AM [facility] Hematocrit 22.6(L) 34.8 - 46.1 % 09/04/2023 9:50 AM [facility] MCV 90.0 80.0 - 98.0 fL 09/04/2023 9:50 AM [facility] MCH 32.3 26.7 - 33.6 pg 09/04/2023 9:50 AM [facility] MCHC 35.8 31.7 - 36.3 g/dL 09/04/2023 9:50 AM [facility] RDW-CV 15.6(H) 11.3 - 14.8 % 09/04/2023 9:50 AM [facility] Platelet Count 35(L) 150 - 420 x10E9/L 09/04/2023 9:50 AM [facility] Preliminary Absolute Neutrophil 0.11(L) 1.60 - 7.50 x10E9/L 09/04/2023 9:50 AM [facility] Blood BLOOD SPECIMEN / Unknown Lab Venipuncture / Unknown 09/04/2023 5:25 AM ARTIST REPRESENTATIVE 09/04/2023 6:05 AM [facility] Graham Beltran MD LAB - HEMATOLOGY ORD ERABLES [facility] [address] [place] [address], [facility] [phone] * CYTOMEGALOVIRUS (CMV) QUANTITATIVE PLASMA (09/04/2023 5:20 AM ARTIST REPRESENTATIVE) Pathologist [facility] CMV Quant by PCR, Interp Not detected Not detected 09/04/2023 4:50 PM ARTIST REPRESENTATIVE [facility] MICROBIOLOGY Blood BLOOD SPECIMEN / Unknown Lab Venipuncture / Unknown 09/04/2023 5:20 AM ARTIST REPRESENTATIVE 09/04/2023 6:07 AM ARTIST REPRESENTATIVE Narrative [facility] MICROBIOLOGY - 09/04/2023 4:50 PM ARTIST REPRESENTATIVE The CMV DNA analysis utilized real-time PCR, [...] using an [place] FDA approved test methodology. Graham Beltran MD LAB - CHEMISTRY JON NAIDU [facility] MICROBIOLOGY [address] [facility] [place] [address], [facility] [phone] * MARTHA-GHOTRA VIRUS ANTIBODY TO VCA IGM (09/04/2023 5:20 AM ARTIST REPRESENTATIVE) [facility] Martha-Ghotra Virus Antibody IgM Viral Capsid Antigen <10.0 0.0 - 43.9 U/mL 09/05/2023 2:29 PM ARTIST REPRESENTATIVE [facility] ([facility]) Comment: INTERPRETIVE INFORMATION: Martha-Ghotra Virus Antibody to ?Viral Capsid Antigen, IgM ??35.9 U/mL or less.......Not Detected ?36.0-43.9 U/mL..........Indeterminate - Repeat testing in ?10-14 days may be helpful. ??44.0 U/mL or greater....Detected Performed By: [facility] [address] [place] [address] Game Technician: Ebenezer Shipman MD, PhD CLIA Number: [id number] Blood BLOOD SPECIMEN / Unknown Lab Venipuncture / Unknown 09/04/2023 5:20 AM ARTIST REPRESENTATIVE 09/04/2023 6:05 AM ARTIST REPRESENTATIVE Graham Beltran MD LAB - SEROLOGY ORDER SOL [facility] [address] [place] [address], [facility] * CYTOMEGALOVIRUS ANTIBODY IGG BLOOD (09/04/2023 5:20 AM ARTIST REPRESENTATIVE) Cytomegalovirus Antibody IgG 0.24 <=0.70 U/mL 09/05/2023 12:48 PM ARTIST REPRESENTATIVE [facility] ([facility]) Comment: INTERPRETIVE INFORMATION: Cytomegalovirus Antibody, IgG [...] laboratory at the same time. Performed By: [facility] [address] [place] [address] Game Technician: Ebenezer Shipman MD, PhD CLIA Number: [id number] Blood BLOOD SPECIMEN / Unknown Lab Venipuncture / Unknown 09/04/2023 5:20 AM ARTIST REPRESENTATIVE 09/04/2023 6:05 AM ARTIST REPRESENTATIVE Graham Beltran MD LAB - CHEMISTRY JON NAIDU Performing Organization Address City/[facility]/ZIP Co de Phone Number [facility] ([facility]) [address] [place] [address] * HEPATITIS C AB SCREEN RFLX NAAT QUANT (09/04/2023 5:20 AM ARTIST REPRESENTATIVE) Hepatitis C Antibody Non-react easton Non-reac tive 09/04/2023 6:58 AM ARTIST REPRESENTATIVE [facility] Comment:Hepatitis C Antibody screen indicates no serologic evidence of past or current infection with Hepatitis C Virus. Patients with unexplained liver disease who are immunocompromised or suspected of having acute Hepatitis C infection may benefit from Nucleic Acid Test (PRADIP) for Hepatitis C Viral RNA to confirm Hepatitis C status. Blood BLOOD SPECIMEN / Unknown Lab Venipuncture / Unknown 09/04/2023 5:20 AM ARTIST REPRESENTATIVE 09/04/2023 6:05 AM ARTIST REPRESENTATIVE Graham Beltran MD LAB - CHEMISTRY [facility] [address] [address], [place] [phone] * (ABNORMAL) HEPATITIS B PANEL (09/04/2023 5:20 AM ARTIST REPRESENTATIVE) Hepatitis B Virus Surface Antibody Reactive(A ) Non-react easton 09/04/2023 7:08 AM ARTIST REPRESENTATIVE [facility] Comment: > 12 mIU/mL Hepatitis B surface Antibody (HBsAb). Reactive for HBsAb - individual is considered immune to Hepatitis B Virus infection. Hepatitis B Virus Surface Antigen Non-reacti ve Non-react easton 09/04/2023 7:08 AM ARTIST REPRESENTATIVE [facility] Hepatitis B Core Virus Antibody IgM Non-reacti ve Non-react easton 09/04/2023 7:08 AM [facility] Blood BLOOD SPECIMEN / Unknown Lab Venipuncture / Unknown 09/04/2023 5:20 AM ARTIST REPRESENTATIVE 09/04/2023 6:05 AM ARTIST REPRESENTATIVE Graham Beltran MD LAB - CHEMISTRY [facility] [address] [address], [facility] [phone] * HIV-1 HIV-2 ANTIBODY + HIV P24 AG PANEL (09/04/2023 5:20 AM ARTIST REPRESENTATIVE) HIV Antigen/Antibod y 1 & 2 Non-reacti ve Non-react easton 09/04/2023 6:59 AM [facility] Comment:No Laboratory eviden ce of HIV infection. Blood BLOOD SPECIMEN / Unknown Lab Venipuncture / Unknown 09/04/2023 5:20 AM ARTIST REPRESENTATIVE 09/04/2023 6:05 AM ARTIST REPRESENTATIVE Graham Beltran MD LAB - CHEMISTRY [facility] [address] [address], [place] [phone] * (ABNORMAL) HAPTOGLOBIN (09/04/2023 5:20 AM ARTIST REPRESENTATIVE) Haptoglobin 345(H) 14 - 258 mg/dL 09/04/2023 6:51 AM [facility] Comment:Result obtained by jose de jesus ashby. Blood BLOOD SPECIMEN / Unknown Lab Venipuncture / Unknown 09/04/2023 5:20 AM ARTIST REPRESENTATIVE 09/04/2023 6:05 AM ARTIST REPRESENTATIVE Graham Beltran MD LAB - CHEMISTRY [facility] [address] [facility] [place] [address], [place] [phone] * MARTHA-GHOTRA VIRUS QUANT BLOOD STL (09/04/2023 5:19 AM ARTIST REPRESENTATIVE) EBV Quant by PCR, Interp Not detected Not detected 09/04/2023 3:06 PM ARTIST REPRESENTATIVE [facility] MICROBIOLOGY Specimen Type Plasma 09/04/2023 3:06 PM ARTIST REPRESENTATIVE [facility] Blood BLOOD SPECIMEN / Unknown Lab Venipuncture / Unknown 09/04/2023 5:19 AM ARTIST REPRESENTATIVE 09/04/2023 6:05 AM ARTIST REPRESENTATIVE Narrative [facility] MICROBIOLOGY - 09/04/2023 3:06 PM ARTIST REPRESENTATIVE DNA isolated from the plasma was analyzed in a qPCR assay to detect and quantify Martha-Ghotra DNA. An internal control is included to evaluate for PCR inhibition. The quantitative range of this assay is 500 IU/mL to 5,000,000 IU/mL. Values below 500 IU/mL will be reported as Detected (<500 IU/mL). ?? This test was developed and its performance characteristics determined by [facility]. ??It has not been cleared or approved [...] Beltran MD LAB - CHEMISTRY [facility] MICROBIOLOGY [address] [place], [place] [address], [facility] [phone] documented in this encounter Visit Diagnoses Diagnosis 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) Tonsillitis Acute tonsillitis Bloating Flatulence, eructation, and gas pain Tachycardia Tachycardia, unspecified Sinus tachycardia Other specified cardiac dysrhythmias Acute cough Abnormal imaging of central nervous system Nausea and vomiting, unspecified vomiting type IIH (idiopathic intracranial hypertension) Benign intracranial hypertension 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) Pancytopenia (HCC) Tonsillitis Acute tonsillitis Acute hypoxic respiratory failure (HCC) Pulmonary edema (HCC) Pulmonary congestion and hypostasis Febrile neutropenia (HCC) Neutropenia, unspecified IIH (idiopathic intracranial hypertension) Benign intracranial hypertension 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) Abnormal imaging of central nervous system documented in this encounter Administered Medications Inactive Administered Medications - up to 3 most recent administrations Medication Order MAR Action Action Date Dose Rate Site 0.9% NaCl infusion rate and volume at 20 mL/hr, 250 mL, ONCE PRN, Starting on Fri10/09/23 at 0836, Until Fri10/09/23 at 1820, Normal Saline flush bag for blood and blood product administration 0.9% NaCl infusion at 200 mL/hr, Intravenous, CONTINUOUS, Starting on Fri09/06/23 at 1015, Until Ally 09/11/23 at 0929 $ New Bag/Syringe 09/11/2023 8:53 AM ARTIST REPRESENTATIVE 200 mL/hr $ New Bag/Syringe 09/11/2023 3:48 AM ARTIST REPRESENTATIVE 200 mL /hr $ New Bag/Syringe 09/10/2023 10:50 PM ARTIST REPRESENTATIVE 200 m L/hr 0.9% NaCl infusion at 100 mL/hr, Intravenous, CONTINUOUS, Starting on Fri09/26/23 at 0915, Until Fri09/26/23 at 0949 $ New Bag/Syringe 09/26/2023 9:19 AM ARTIST REPRESENTATIVE 100 mL/hr 0.9% NaCl injection 1-10 mL 1-10 mL, Intracatheter, PRN, Other, peripheral line flush, Starting on Fri09/04/23 at 1226, Until Fri10/09/23 at 1820, Flush peripheral IV catheter with 1-10 mL of normal saline before and after medications and prn to clear blood from the line or to verify patency. 0.9% NaCl injection 10 mL 10 mL, Intracatheter, INTRA-PROCEDURE MULTIPLE, Starting on Fri09/05/23 at 1500, Until Fri09/05/23 at 1859, For Echo Procedure - Per Protocol Agitate saline before administration. $ Given 09/05/2023 3:36 PM ARTIST REPRESENTATIVE 10 mL 0.9% NaCl injection 3 mL 3 mL, Intracatheter, EVERY 8 HOURS, First dose on Ally 09/04/23 at 1400, Until Discontinued, Flush peripheral IV catheter with 3 mL of normal saline every 8 hours. $ Given 10/09/2023 2:28 PM ARTIST REPRESENTATIVE 3 mL $ Given 10/08/2023 6:26 AM ARTIST REPRESENTATIVE 3 mL $ Given 10/07/2023 8:35 PM ARTIST REPRESENTATIVE 3 mL 0.9% NaCl IV bolus 250 mL, at 483.87 mL/hr, Administer over 31 Minutes, ONCE, 1 dose, On Ally 09/25/23 at 1300 $ New Bag/Syringe 09/25/2023 1:13 PM ARTIST REPRESENTATIVE 250 mL 483.87 mL/hr 0.9% NaCl IV bolus 1,000 mL, at 983.61 mL/hr, Administer over 61 Minutes, ONCE, 1 dose, On Ally 09/25/23 at 1645 $ New Bag/Syringe 09/25/2023 4:34 PM ARTIST REPRESENTATIVE 1,000 mL 983.61 mL/hr 0.9% NaCl IV bolus 1,000 mL, at 495.87 mL/hr, Administer over 121 Minutes, ONCE, 1 dose, On Ally 09/25/23 at 1800 $ New Bag/Syringe 09/25/2023 6:00 PM ARTIST REPRESENTATIVE 1,000 mL 495.87 mL/hr acetaminophen (Tylenol) tablet 650 mg 650 mg, Oral, EVERY 6 HOURS PRN, Fever, Mild Pain, Starting on Ally 09/04/23 at 0155, Until 09/27/23 at 1326, Patient preference for lesser PRN pain meds may be honored when the patient requests a less strong medication, a lower dose, or a less intrusive route of administration when the lesser drug, dose and route have been ordered for the patient. This patient request must be documented in the MAR. $ Given 09/20/2023 7:31 AM ARTIST REPRESENTATIVE 650 mg $ Given 09/19/2023 9:31 PM ARTIST REPRESENTATIVE 650 mg acetaminophen (Tylenol) tablet 650 mg 650 mg, Oral, EVERY 4 HOURS PRN, Fever, Mild Pain, Headache, Starting on 09/22/23 at 1652, Until 09/27/23 at 1326, Patient preference for lesser PRN pain meds may be honored when the patient requests a less strong medication, a lower dose, or a less intrusive route of administration when the lesser drug, dose and route have been ordered for the patient. This patient request must be documented in the MAR. $ Given 09/26/2023 12:08 AM ARTIST REPRESENTATIVE 650 mg acetaminophen (Tylenol) tablet 650 mg 650 mg, Oral, EVERY 6 HOURS PRN, Fever, Mild Pain, Headache, Starting on 09/27/23 at 1326, Until Fri10/09/23 at 1820, Patient preference for lesser PRN pain meds may be honored when the patient requests a less strong medication, a lower dose, or a less intrusive route of administration when the lesser drug, dose and route have been ordered for the patient. This patient request must be documented in the MAR. acetaZOLAMIDE (Diamox) injection 500 mg 500 mg, Intravenous, ONCE, 1 dose, On Fri10/01/23 at 1600, Dilute with 5 mL of sterile water, give IV push at rate of 100-500mg/minute $ Given 10/01/2023 6:30 PM ARTIST REPRESENTATIVE 500 mg acetaZOLAMIDE (Diamox) tablet 500 mg 500 mg, Oral, 2 TIMES DAILY, First dose on Fri10/07/23 at 0900, Until Discontinued $ Given 10/09/2023 9:10 AM ARTIST REPRESENTATIVE 500 mg $ Given 10/08/2023 8:39 PM ARTIST REPRESENTATIVE 500 mg $ Given 10/08/2023 8:38 AM ARTIST REPRESENTATIVE 500 mg acetaZOLAMIDE ER 12hr (Diamox Sequel) capsule 1,000 mg 1,000 mg, Oral, 2 TIMES DAILY, First dose (after last modification) on Fri10/02/23 at 2100, Until Discontinued, Do not crush or chew. $ Given 10/04/2023 8:45 AM ARTIST REPRESENTATIVE 1,000 mg $ Given 10/03/2023 8:59 PM ARTIST REPRESENTATIVE 1,000 mg $ Given 10/03/2023 9:17 AM ARTIST REPRESENTATIVE 1,000 mg acetaZOLAMIDE ER 12hr (Diamox Sequel) capsule 500 mg 500 mg, Oral, 2 TIMES DAILY, First dose on Fri10/01/23 at 2100, Until Discontinued, Do not crush or chew. $ Given 10/02/2023 10:28 AM ARTIST REPRESENTATIVE 500 mg $ Given 10/01/2023 9:33 PM ARTIST REPRESENTATIVE 500 mg acetaZOLAMIDE ER 12hr (Diamox Sequel) capsule 500 mg 500 mg, Oral, 2 TIMES DAILY, First dose (after last modification) on 10/04/23 at 2100, Until Discontinued, Do not crush or chew. $ Given 10/04/2023 11:08 PM ARTIST REPRESENTATIVE 500 mg allopurinol (Zyloprim) tablet 300 mg 300 mg, Oral, DAILY AFTER BREAKFAST, First dose on 09/07/23 at 1415, Until Discontinued $ Given 09/11/2023 9:06 AM ARTIST REPRESENTATIVE 300 mg $ Given 09/10/2023 9:33 AM ARTIST REPRESENTATIVE 300 mg $ Given 09/09/2023 9:13 AM ARTIST REPRESENTATIVE 300 mg ALPRAZolam (Xanax) tablet 0.25 mg 0.25 mg, Oral, 2 TIMES DAILY PRN, Anxiety, Starting on 09/20/23 at 1259, Until Ally 10/09/23 at 1820 $ Given 10/01/2023 8:25 AM ARTIST REPRESENTATIVE 0.25 mg $ Given 09/28/2023 8:12 PM ARTIST REPRESENTATIVE 0.25 mg $ Given 09/27/2023 8:19 PM ARTIST REPRESENTATIVE 0.25 mg amoxicillin-clavulanate (Augmentin) tablet 875 mg 875 mg, Oral, 2 TIMES DAILY, 6 doses, First dose on Ally 09/04/23 at 0900, Last dose on 09/06/23 at 2100, Administer with food to decrease GI side effects., Indication for anti-infective therapy: Suspected infection, Site of anti-infective therapy: Upper Respiratory $ Given 09/06/2023 8:07 PM ARTIST REPRESENTATIVE 875 mg $ Given 09/06/2023 8:51 AM ARTIST REPRESENTATIVE 875 mg $ Given 09/05/2023 9:52 PM ARTIST REPRESENTATIVE 875 mg cefepime (Maxipime) 2,000 mg in 0.9% NaCl IV 50 mL IVPB 2,000 mg (2 g), at 100 mL/hr, Intravenous, EVERY 8 HOURS, First dose on 09/22/23 at 1730, Until Discontinued, Indication for anti-infective therapy: Suspected infection, Site of anti-infective therapy: Blood $ New Bag/Syringe 09/29/2023 4:28 PM ARTIST REPRESENTATIVE 2,000 mg 100 mL/hr $ New Bag/Syringe 09/29/2023 8:49 AM ARTIST REPRESENTATIVE 2,000 mg 100 mL /hr $ New Bag/Syringe 09/29/2023 1:04 AM ARTIST REPRESENTATIVE 2,000 mg 100 mL /hr cytarabine (Cytosar) 460 mg in 0.9% NaCl IV 534.6 mL infusion 460 mg (rounded from 456 mg = 200 mg/m2 ? 2.28 m2 Treatment Plan BSA from Recorded weight), at 22.28 mL/hr, Administer over 24 Hours, Intravenous, ONCE, 1 dose, On 09/06/23 at 1515, . PREMEDICATION(s): should be administered at least 30 minutes prior to infusion $ New Bag/Syringe 09/06/2023 4:40 PM ARTIST REPRESENTATIVE 460 mg 22.28 mL/hr cytarabine (Cytosar) 460 mg in 0.9% NaCl IV 534.6 mL infusion 460 mg (rounded from 456 mg = 200 mg/m2 ? 2.28 m2 Treatment Plan BSA from Recorded weight), at 22.28 mL/hr, Administer over 24 Hours, Intravenous, ONCE, 1 dose, On 09/07/23 at 1515, . PREMEDICATION(s): should be administered at least 30 minutes prior to infusion $ New Bag/Syringe 09/07/2023 5:57 PM ARTIST REPRESENTATIVE 460 mg 22.28 mL/hr cytarabine (Cytosar) 460 mg in 0.9% NaCl IV 534.6 mL infusion 460 mg (rounded from 456 mg = 200 mg/m2 ? 2.28 m2 Treatment Plan BSA from Recorded weight), at 22.28 mL/hr, Administer over 24 Hours, Intravenous, ONCE, 1 dose, On 09/08/23 at 1645, . PREMEDICATION(s): should be administered at least 30 minutes prior to infusion $ New Bag/Syringe 09/08/2023 4:49 PM ARTIST REPRESENTATIVE 460 mg 22.28 mL/hr cytarabine (Cytosar) 460 mg in 0.9% NaCl IV 534.6 mL infusion 460 mg (rounded from 456 mg = 200 mg/m2 ? 2.28 m2 Treatment Plan BSA from Recorded weight), at 22.28 mL/hr, Administer over 24 Hours, Intravenous, ONCE, 1 dose, On 09/09/23 at 1700, . PREMEDICATION(s): should be administered at least 30 minutes prior to infusion Current Rate 09/09/2023 6:32 PM ARTIST REPRESENTATIVE 22.28 mL/hr $ New Bag/Syringe 09/09/2023 3:28 PM ARTIST REPRESENTATIVE 460 mg 22.28 mL/hr cytarabine (Cytosar) 460 mg in 0.9% NaCl IV 534.6 mL infusion 460 mg (rounded from 456 mg = 200 mg/m2 ? 2.28 m2 Treatment Plan BSA from Recorded weight), at 22.28 mL/hr, Administer over 24 Hours, Intravenous, ONCE, 1 dose, On Fri09/10/23 at 1700, . PREMEDICATION(s): should be administered at least 30 minutes prior to infusion $ New Bag/Syringe 09/10/2023 5:06 PM ARTIST REPRESENTATIVE 460 mg 22.28 mL/hr cytarabine (Cytosar) 460 mg in 0.9% NaCl IV 534.6 mL infusion 460 mg (rounded from 456 mg = 200 mg/m2 ? 2.28 m2 Treatment Plan BSA from Recorded weight), at 22.28 mL/hr, Administer over 24 Hours, Intravenous, ONCE, 1 dose, On Fri09/11/23 at 1700, . PREMEDICATION(s): should be administered at least 30 minutes prior to infusion $ New Bag/Syringe 09/11/2023 4:57 PM ARTIST REPRESENTATIVE 460 mg 22.28 mL/hr cytarabine (Cytosar) 460 mg in 0.9% NaCl IV 534.6 mL infusion 460 mg (rounded from 456 mg = 200 mg/m2 ? 2.28 m2 Treatment Plan BSA from Recorded weight), at 22.28 mL/hr, Administer over 24 Hours, Intravenous, ONCE, 1 dose, On Fri09/12/23 at 1700, . PREMEDICATION(s): should be administered at least 30 minutes prior to infusion $ New Bag/Syringe 09/12/2023 4:36 PM ARTIST REPRESENTATIVE 460 mg 22.28 mL/hr cytarabine (Cytosar) 6,700 mg in 0.9% NaCl IV 597 mL infusion 6,700 mg (rounded from 6,720 mg = 3,000 mg/m2 ? 2.24 m2 Treatment Plan BSA from Recorded weight), at 199 mL/hr, Administer over 3 Hours, Intravenous, EVERY 12 HOURS, 2 doses, First dose on 10/04/23 at 1100, Last dose on 10/04/23 at 2300, . PREMEDICATION(s): should be administered at least 30 minutes prior to infusion $ New Bag/Syringe 10/04/2023 11:49 PM ARTIST REPRESENTATIVE 6,700 mg 199 mL/hr $ New Bag/Syringe 10/04/2023 12:08 PM ARTIST REPRESENTATIVE 6,700 mg 199 m L/hr cytarabine (Cytosar) 6,700 mg in 0.9% NaCl IV 597 mL infusion 6,700 mg (rounded from 6,720 mg = 3,000 mg/m2 ? 2.24 m2 Treatment Plan BSA from Recorded weight), at 199 mL/hr, Administer over 3 Hours, Intravenous, EVERY 12 HOURS, 2 doses, First dose on Fri10/06/23 at 1100, Last dose on Fri10/06/23 at 2300, . PREMEDICATION(s): should be administered at least 30 minutes prior to infusion Current Rate 10/07/2023 12:24 AM ARTIST REPRESENTATIVE 199 mL/hr Current Rate 10/06/2023 11:07 PM ARTIST REPRESENTATIVE 199 mL/hr $ New Bag/Syringe 10/06/2023 11:07 PM ARTIST REPRESENTATIVE 6,700 mg 199 m L/hr cytarabine (Cytosar) 6,700 mg in 0.9% NaCl IV 597 mL infusion 6,700 mg (rounded from 6,720 mg = 3,000 mg/m2 ? 2.24 m2 Treatment Plan BSA from Recorded weight), at 199 mL/hr, Administer over 3 Hours, Intravenous, EVERY 12 HOURS, 2 doses, First dose on Fri10/08/23 at 0900, Last dose on Fri10/08/23 at 2100, . PREMEDICATION(s): should be administered at least 30 minutes prior to infusion $ New Bag/Syringe 10/08/2023 9:24 PM ARTIST REPRESENTATIVE 6,700 mg 199 mL/hr $ New Bag/Syringe 10/08/2023 9:22 AM ARTIST REPRESENTATIVE 6,700 mg 199 mL /hr cytarabine (Cytosar) INTRATHECAL chemo injection 100 mg 100 mg, Intrathecal, ONCE, 1 dose, On Fri10/01/23 at 0830 $ Given 10/01/2023 10:37 AM ARTIST REPRESENTATIVE 100 mg dexAMETHasone (Decadron) 0.1 % ophthalmic suspension 2 drop 2 drop, Each Eye, FOUR TIMES DAILY, 32 doses, First dose on 10/04/23 at 1000, Last dose on Fri10/12/23 at 0600, Shake well before using. $ Given 10/09/2023 2:33 PM ARTIST REPRESENTATIVE 2 drops $ Given 10/09/2023 9:10 AM ARTIST REPRESENTATIVE 2 drops $ Given 10/09/2023 6:03 AM ARTIST REPRESENTATIVE 2 drops dexAMETHasone (Decadron) 12 mg in 0.9% NaCl IV 58 mL IVPB 12 mg, at 232 mL/hr, Intravenous, ONCE, 1 dose, On 09/06/23 at 1430 $ New Bag/Syringe 09/06/2023 4:18 PM ARTIST REPRESENTATIVE 12 mg 232 mL/hr dexAMETHasone (Decadron) 12 mg in 0.9% NaCl IV 58 mL IVPB 12 mg, at 232 mL/hr, Intravenous, ONCE, 1 dose, On Fri09/07/23 at 1430 $ New Bag/Syringe 09/07/2023 4:52 PM ARTIST REPRESENTATIVE 12 mg 232 mL/hr dexAMETHasone (Decadron) 12 mg in 0.9% NaCl IV 58 mL IVPB 12 mg, at 232 mL/hr, Intravenous, ONCE, 1 dose, On Fri09/08/23 at 1600 $ New Bag/Syringe 09/08/2023 4:19 PM ARTIST REPRESENTATIVE 12 mg 232 mL/hr dexAMETHasone (Decadron) 8 mg in 0.9% NaCl IV 57 mL IVPB 8 mg, at 228 mL/hr, Intravenous, ONCE, 1 dose, On Fri09/09/23 at 1630 $ New Bag/Syringe 09/09/2023 3:07 PM ARTIST REPRESENTATIVE 8 mg 228 mL/hr dexAMETHasone (Decadron) 8 mg in 0.9% NaCl IV 57 mL IVPB 8 mg, at 228 mL/hr, Intravenous, ONCE, 1 dose, On Fri09/10/23 at 1630 $ New Bag/Syringe 09/10/2023 4:15 PM ARTIST REPRESENTATIVE 8 mg 228 mL/hr dexAMETHasone (Decadron) injection 8 mg 8 mg, Intravenous, ONCE, 1 dose, On 10/04/23 at 1030, Administer 30 minutes prior to chemotherapy ONLY IF patient did not take oral dexamethasone. $ Given 10/04/2023 11:23 AM ARTIST REPRESENTATIVE 8 mg dexAMETHasone (Decadron) injection 8 mg 8 mg, Intravenous, ONCE, 1 dose, On Fri10/06/23 at 1030, Administer 30 minutes prior to chemotherapy ONLY IF patient did not take oral dexamethasone. $ Given 10/06/2023 10:21 AM ARTIST REPRESENTATIVE 8 mg dexAMETHasone (Decadron) injection 8 mg 8 mg, Intravenous, ONCE, 1 dose, On Fri10/08/23 at 0830, Administer 30 minutes prior to chemotherapy ONLY IF patient did not take oral dexamethasone. $ Given 10/08/2023 8:37 AM ARTIST REPRESENTATIVE 8 mg dextrose 10 % IV bolus 12.5 g, at 468.75 mL/hr, Intravenous, PRN, Other, Bedside Glucose less than 70 mg/dL -If NOT able to eat and/or NPO and with IV Access, Starting on Fri09/26/23 at 0833, Until Fri10/09/23 at 1820, If NOT able to eat and/or NPO [...] NPO and with IV Access, Starting on Fri09/26/23 at 0833, Until Fri10/09/23 at 1820, If NOT able to eat and/or NPO [...] IV STAT NOTIFY PROVIDER OF HYPOGLYCEMIC EVENT. dextrose 5 % and lactated ringers infusion at 75 mL/hr, Intravenous, CONTINUOUS, Starting on Fri10/01/23 at 1945, Until Fri10/02/23 at 0744 Current Rate 10/02/2023 6:42 AM ARTIST REPRESENTATIVE 75 mL/hr $ New Bag/Syringe 10/01/2023 9:38 PM ARTIST REPRESENTATIVE 75 mL/ hr dicyclomine (Bentyl) tablet 20 mg 20 mg, Oral, 3 TIMES DAILY PRN, cramping, Starting on 09/15/23 at 1042, Until Ally 10/09/23 at 1820 docusate sodium (Colace) solution 50 mg 50 mg, Oral, AT BEDTIME PRN, Constipation, Starting on 09/21/23 at 2000, Until Ally 10/09/23 at 1820 $ Given 09/21/2023 9:56 PM ARTIST REPRESENTATIVE 50 mg famotidine (Pepcid) tablet 20 mg 20 mg, Oral, 2 TIMES DAILY, First dose on 09/06/23 at 1015, Until Discontinued $ Given 10/09/2023 9:10 AM ARTIST REPRESENTATIVE 20 mg $ Given 10/08/2023 8:40 PM ARTIST REPRESENTATIVE 20 mg $ Given 10/08/2023 8:37 AM ARTIST REPRESENTATIVE 20 mg fentaNYL (PF) (Sublimaze) injection 25 mcg 25 mcg, Intravenous, ONCE, 1 dose, On Fri10/01/23 at 1315, Patient preference for lesser PRN pain meds may be honored when the patient requests a less strong medication, a lower dose, or a less intrusive route of administration when the lesser drug, dose and route have been ordered for the patient. This patient request must be documented in the MAR. $ Given 10/01/2023 1:16 PM ARTIST REPRESENTATIVE 25 mc g fentaNYL (PF) (Sublimaze) injection ONCE PRN, Starting on Fri09/05/23 at 1325, Until Fri09/05/23 at 1340, Intra-op $ Given 09/05/2023 1:40 PM ARTIST REPRESENTATIVE 50 mcg $ Given 09/05/2023 1:25 PM ARTIST REPRESENTATIVE 50 mcg furosemide (Lasix) injection 20 mg 20 mg, Intravenous, DAILY PRN, as needed for input greater than output by 2000 ml/day or weight increase greater than 1 kg in 24 hours, Starting on 09/06/23 at 1011, Until Fri09/16/23 at 1010, If needed, administer in the morning. Notify physician for evening dose if prn parameters are still met by evening. $ Given 09/11/2023 7:04 AM ARTIST REPRESENTATIVE 20 mg furosemide (Lasix) tablet 10 mg 10 mg, Oral, ONCE, 1 dose, On Fri09/26/23 at 1300 $ Given 09/26/2023 1:16 PM ARTIST REPRESENTATIVE 10 mg gadobutrol (Gadavist) injection Intravenous, CONTRAST ONCE, Starting on Fri09/29/23 at 2118, Until Fri10/01/23 at 2117 $ Given - Contrast 09/29/2023 9:18 PM ARTIST REPRESENTATIVE 10 mL gadobutrol (Gadavist) injection Intravenous, CONTRAST ONCE, Starting on Fri10/03/23 at 0027, Until 10/05/23 at 0026 $ Given - Contrast 10/03/2023 12:27 AM ARTIST REPRESENTATIVE 10 mL glucagon (Glucagen) injection 1 mg 1 mg, Subcutaneous, PRN, Bedside Glucose less than 70 mg/dL - If NOT able to eat and/or NPO and withOUT IV Access, Starting on Fri09/26/23 at 0833, Until Ally 10/09/23 at 1820, If NOT able to eat and/or NPO [...] Glucose less than 70 mg/dL, Starting on Fri09/26/23 at 0833, Until Ally 10/09/23 at 1820, If able to eat and is better able to swallow gel: For Bedside Glucose 54 - 69 mg/dL [...] for choices) NOTIFY PROVIDER OF HYPOGLYCEMIC EVENT. guaiFENesin (Robitussin) solution 10 mL 10 mL, Oral, EVERY 6 HOURS PRN, Cough, Starting on Fri09/28/23 at 0008, Until Fri10/09/23 at 1820 $ Given 09/30/2023 8:08 PM ARTIST REPRESENTATIVE 10 mL $ Given 09/29/2023 5:41 PM ARTIST REPRESENTATIVE 10 mL $ Given 09/28/2023 8:11 PM ARTIST REPRESENTATIVE 10 mL heparin injection 7,500 Units 7,500 Units, Subcutaneous, EVERY 8 HOURS, First dose on Fri10/07/23 at 1545, Until Discontinued $ Given 10/08/2023 6:25 AM ARTIST REPRESENTATIVE 7,500 Units Abdominal Tissue $ Given 10/07/2023 8:34 PM ARTIST REPRESENTATIVE 7,500 Units A bdominal Tissue $ Given 10/07/2023 3:48 PM ARTIST REPRESENTATIVE 7,500 Units A bdominal Tissue heparin lock flush injection 500 Units 500 Units, Intracatheter, PRN, Other, line flushes as needed, Starting on Fri09/16/23 at 1046, Until Fri10/09/23 at 1820 $ Given 10/07/2023 8:35 PM ARTIST REPRESENTATIVE 500 Units $ Given 10/03/2023 9:01 PM ARTIST REPRESENTATIVE 500 Units heparinized saline 2 units/mL infusion Other, CONTINUOUS PRN, Starting on Fri09/05/23 at 1339, Until Fri09/05/23 at 1339, Intra-op $ New Bag/Syringe 09/05/2023 1:39 PM ARTIST REPRESENTATIVE 500 mL IDArubicin (Idamycin) injection 27 mg 27 mg (rounded from 27.36 mg = 12 mg/m2 ? 2.28 m2 Treatment Plan BSA from Recorded weight), Intravenous, ONCE, 1 dose, On 09/06/23 at 1500, Administer with concurrent fluids running to gravity. . CAUTION - Vesicant. PROTECT FROM LIGHT. $ Given 09/06/2023 4:37 PM ARTIST REPRESENTATIVE 27 mg IDArubicin (Idamycin) injection 27 mg 27 mg (rounded from 27.36 mg = 12 mg/m2 ? 2.28 m2 Treatment Plan BSA from Recorded weight), Intravenous, ONCE, 1 dose, On 09/07/23 at 1500, Administer with concurrent fluids running to gravity. . CAUTION - Vesicant. PROTECT FROM LIGHT. $ Given 09/07/2023 5:57 PM ARTIST REPRESENTATIVE 27 mg IDArubicin (Idamycin) injection 27 mg 27 mg (rounded from 27.36 mg = 12 mg/m2 ? 2.28 m2 Treatment Plan BSA from Recorded weight), Intravenous, ONCE, 1 dose, On 09/08/23 at 1630, Administer with concurrent fluids running to gravity. . CAUTION - Vesicant. PROTECT FROM LIGHT. $ Given 09/08/2023 4:49 PM ARTIST REPRESENTATIVE 27 mg insulin aspart (NovoLOG) pen 0-6 Units 0-6 Units, Subcutaneous, 3 TIMES DAILY WITH MEALS, First dose on Ally 09/11/23 at 1200, Until Discontinued, Low Dose: Correction [...] give at the same time. $ Given 09/11/2023 5:40 PM ARTIST REPRESENTATIVE 2 Units Right Arm insulin aspart (NovoLOG) pen 0-6 Units 0-6 Units, Subcutaneous, 3 TIMES DAILY WITH MEALS, First dose on Fri09/26/23 at 1200, Until Discontinued, Low Dose: Correction [...] give at the same time. $ Given 09/26/2023 12:15 PM ARTIST REPRESENTATIVE 3 Units Left Arm iopamidol (Isovue 370) 76 % contrast Intravenous, CONTRAST ONCE, Starting on Fri09/22/23 at 2003, Until Fri09/24/23 at 2001 $ Given - Contrast 09/22/2023 8:04 PM ARTIST REPRESENTATIVE 75 mL iopamidol (Isovue 370) 76 % contrast Intravenous, CONTRAST ONCE, Starting on Fri09/30/23 at 2353, Until Fri10/02/23 at 2352 $ Given - Contrast 09/30/2023 11:59 PM ARTIST REPRESENTATIVE 75 mL lactated ringers infusion at 100 mL/hr, Intravenous, CONTINUOUS, Starting on Fri10/01/23 at 0915, Until Fri10/01/23 at 1453 $ New Bag/Syringe 10/01/2023 1:13 PM ARTIST REPRESENTATIVE 100 mL/hr lactated ringers IV bolus 1,000 mL, at 983.61 mL/hr, Administer over 61 Minutes, ONCE, 1 dose, On Fri10/01/23 at 0900 $ New Bag/Syringe 10/01/2023 12:05 PM ARTIST REPRESENTATIVE 1,000 mL 983.61 mL/hr levoFLOXacin (Levaquin) tablet 500 mg 500 mg, Oral, DAILY, First dose on Fri09/04/23 at 1600, Until Discontinued, Administer at least 2 hours before or 2 hours after antacids, sucralfate, metals (eg, iron, zinc), multivitamin preparations, tube feeds, Indication for anti-infective therapy: Chronic prophylaxis $ Given 09/22/2023 8:31 AM ARTIST REPRESENTATIVE 500 mg $ Given 09/21/2023 8:09 AM ARTIST REPRESENTATIVE 500 mg $ Given 09/20/2023 8:26 AM ARTIST REPRESENTATIVE 500 mg levoFLOXacin (Levaquin) tablet 500 mg 500 mg, Oral, EVERY 24 HOURS, First dose (after last modification) on Fri09/29/23 at 1800, Until Discontinued, Administer at least 2 hours before or 2 hours after antacids, sucralfate, metals (eg, iron, zinc), multivitamin preparations, tube feeds, Indication for anti-infective therapy: Chronic prophylaxis $ Given 09/29/2023 5:41 PM ARTIST REPRESENTATIVE 500 mg lidocaine (Xylocaine) 1 % injection Subcutaneous, ONCE PRN, Starting on Fri09/05/23 at 1327, Until Fri09/05/23 at 1327, Intra-op $ Given 09/05/2023 1:27 PM ARTIST REPRESENTATIVE 18 mL See Comments lidocaine (Xylocaine) 1 % injection Subcutaneous, ONCE, 1 dose, On Fri10/01/23 at 1030 $ Given 10/01/2023 10:10 AM ARTIST REPRESENTATIVE 4 mL See Comments lidocaine (Xylocaine) 1 % injection Subcutaneous, ONCE, 1 dose, On Fri10/06/23 at 1430 $ Given 10/06/2023 3:05 PM ARTIST REPRESENTATIVE 4 mg See Comments LORazepam (Ativan) injection 0.5 mg 0.5 mg, Intravenous, ONCE, 1 dose, On Fri09/05/23 at 1030 $ Given 09/05/2023 10:08 AM ARTIST REPRESENTATIVE 0.5 mg LORazepam (Ativan) injection 0.5 mg 0.5 mg, Intravenous, ONCE PRN, Anxiety, for bone marrow biopy, 1 dose, Starting on Fri10/01/23 at 1153, Until Fri10/01/23 at 1309 $ Given 10/01/2023 1:09 PM ARTIST REPRESENTATIVE 0.5 mg LORazepam (Ativan) injection 0.5 mg 0.5 mg, Intravenous, ONCE PRN, Anxiety, 1 dose, Starting on Fri10/06/23 at 0955, Until Fri10/06/23 at 1323, Prior to LP $ Given 10/06/2023 1:23 PM ARTIST REPRESENTATIVE 0.5 mg LORazepam (Ativan) injection 1 mg 1 mg, Intravenous, EVERY 8 HOURS PRN, Nausea/Vomiting, Starting on 09/06/23 at 1011, Until 09/20/23 at 1259, Use if patient is experiencing anxiety-related nausea or vomiting of any grade and/or has failed prochlorperazine and ondansetron. Use IV if patient unable to tolerate oral administration. $ Given 09/19/2023 10:50 AM ARTIST REPRESENTATIVE 1 mg LORazepam (Ativan) injection 1 mg 1 mg, Intravenous, ONCE, 1 dose, On Fri09/29/23 at 1945 $ Given 09/29/2023 8:00 PM ARTIST REPRESENTATIVE 1 mg magnesium oxide (Mag-Ox) tablet 400 mg 400 mg, Oral, ONCE, 1 dose, On Fri09/24/23 at 2145 $ Given 09/24/2023 10:34 PM ARTIST REPRESENTATIVE 400 mg magnesium sulfate 4 g in 100 mL bolus 4 g, at 25 mL/hr, Administer over 240 Minutes, Intravenous, ONCE, 1 dose, On Fri09/25/23 at 0915, Infuse at 1 gm/hr $ New Bag/Syringe 09/25/2023 10:33 AM ARTIST REPRESENTATIVE 4 g 25 mL/hr medroxyPROGESTERone (Provera) tablet 10 mg 10 mg, Oral, DAILY, First dose on Fri09/04/23 at 1600, Until Discontinued $ Given 09/24/2023 10:06 AM ARTIST REPRESENTATIVE 10 mg $ Given 09/23/2023 8:49 AM ARTIST REPRESENTATIVE 10 mg $ Given 09/22/2023 8:30 AM ARTIST REPRESENTATIVE 10 mg medroxyPROGESTERone (Provera) tablet 10 mg 10 mg, Oral, 3 TIMES DAILY, First dose (after last modification) on Fri09/24/23 at 2100, Until Discontinued $ Given 09/27/2023 8:40 AM ARTIST REPRESENTATIVE 10 mg $ Given 09/26/2023 8:35 PM ARTIST REPRESENTATIVE 10 mg $ Given 09/26/2023 1:16 PM ARTIST REPRESENTATIVE 10 mg medroxyPROGESTERone (Provera) tablet 10 mg 10 mg, Oral, DAILY, First dose (after last modification) on Fri09/28/23 at 0900, Until Discontinued $ Given 10/03/2023 9:17 AM ARTIST REPRESENTATIVE 10 mg $ Given 10/02/2023 10:27 AM ARTIST REPRESENTATIVE 10 mg $ Given 10/01/2023 8:25 AM ARTIST REPRESENTATIVE 10 mg melatonin tablet 3 mg 3 mg, Oral, AT BEDTIME PRN, Insomnia, Starting on Fri09/04/23 at 0149, Until Fri10/09/23 at 1820 $ Given 10/04/2023 11:08 PM ARTIST REPRESENTATIVE 3 mg $ Given 10/03/2023 8:58 PM ARTIST REPRESENTATIVE 3 mg $ Given 10/01/2023 1:16 AM ARTIST REPRESENTATIVE 3 mg methotrexate (PF) 12 mg in 0.9% NaCl 3 mL intrathecal 12 mg, Intrathecal, ONCE, On Fri24 at 1330, For 1 dose $ Given 10/06/2023 3:00 PM ARTIST REPRESENTATIVE 12 mg See Comments midazolam (Versed) injection Intravenous, ONCE PRN, Starting on Fri09/05/23 at 1327, Until Fri09/05/23 at 1342, Intra-op $ Given 09/05/2023 1:42 PM ARTIST REPRESENTATIVE 1 mg $ Given 09/05/2023 1:27 PM ARTIST REPRESENTATIVE 1 mg morphine injection 2 mg 2 mg, Intravenous, ONCE, 1 dose, On Fri09/05/23 at 1030, Patient preference for lesser PRN pain meds may be honored when the patient requests a less strong medication, a lower dose, or a less intrusive route of administration when the lesser drug, dose and route have been ordered for the patient. This patient request must be documented in the MAR. $ Given 09/05/2023 10:07 AM ARTIST REPRESENTATIVE 2 mg ondansetron (disintegrating) (Zofran ODT) tablet 8 mg 8 mg, Oral, 2 TIMES DAILY PRN, Nausea/Vomiting, Starting on 09/06/23 at 1011, Until Ally 10/09/23 at 1820, Second line therapy if failed prochlorperazine with continued loss of appetite and > 3 episodes of vomiting. Do not administer if patient received palonosetron within 48 hours or exceed ondansetron 32 mg in 24 hours. Use IV if patient unable to tolerate oral administration. Dissolved orally on tongue $ Given 10/07/2023 8:34 PM ARTIST REPRESENTATIVE 8 mg $ Given 10/02/2023 5:02 PM ARTIST REPRESENTATIVE 8 mg $ Given 10/02/2023 7:30 AM ARTIST REPRESENTATIVE 8 mg ondansetron (disintegrating) (Zofran ODT) tablet 8 mg 8 mg, Oral, ONCE, 1 dose, On Ally 09/11/23 at 1630, Dissolved orally on tongue $ Given 09/11/2023 4:23 PM ARTIST REPRESENTATIVE 8 mg ondansetron (Zofran) injection 8 mg 8 mg, Intravenous, 2 TIMES DAILY PRN, Nausea/Vomiting, Starting on 09/06/23 at 1011, Until Ally 10/09/23 at 1820, Administer over 2 to 5 minutes. Second line therapy if failed prochlorperazine with continued loss of appetite and > 3 episodes of vomiting. Do not administer if patient received palonosetron within 48 hours or exceed ondansetron 32 mg in 24 hours. Use IV if patient unable to tolerate oral administration. $ Given 10/01/2023 6:49 PM ARTIST REPRESENTATIVE 8 mg $ Given 09/28/2023 8:10 PM ARTIST REPRESENTATIVE 8 mg $ Given 09/25/2023 1:58 PM ARTIST REPRESENTATIVE 8 mg ondansetron (Zofran) injection 8 mg 8 mg, Intravenous, EVERY 12 HOURS, 2 doses, First dose on 10/04/23 at 1030, Last dose on 10/04/23 at 2230, Administer over 2 to 5 minutes. Administer 30 minutes prior to chemotherapy. $ Given 10/04/2023 11:07 PM ARTIST REPRESENTATIVE 8 mg $ Given 10/04/2023 11:23 AM ARTIST REPRESENTATIVE 8 mg ondansetron (Zofran) injection 8 mg 8 mg, Intravenous, EVERY 12 HOURS, 2 doses, First dose on Fri10/06/23 at 1030, Last dose on Fri10/06/23 at 2230, Administer over 2 to 5 minutes. Administer 30 minutes prior to chemotherapy. $ Given 10/06/2023 10:25 PM ARTIST REPRESENTATIVE 8 mg $ Given 10/06/2023 10:21 AM ARTIST REPRESENTATIVE 8 mg ondansetron (Zofran) injection 8 mg 8 mg, Intravenous, EVERY 12 HOURS, 2 doses, First dose on Fri10/08/23 at 0830, Last dose on Fri10/08/23 at 2030, Administer over 2 to 5 minutes. Administer 30 minutes prior to chemotherapy. $ Given 10/08/2023 8:39 PM ARTIST REPRESENTATIVE 8 mg $ Given 10/08/2023 8:37 AM ARTIST REPRESENTATIVE 8 mg oxyCODONE (immediate release) (Roxicodone) tablet 5 mg 5 mg, Oral, Once, 1 dose, On Fri09/19/23 at 2200, Patient preference for lesser PRN pain meds may be honored when the patient requests a less strong medication, a lower dose, or a less intrusive route of administration when the lesser drug, dose and route have been ordered for the patient. This patient request must be documented in the MAR. $ Given 09/19/2023 10:21 PM ARTIST REPRESENTATIVE 5 mg oxyCODONE (immediate release) (Roxicodone) tablet 5 mg 5 mg, Oral, EVERY 6 HOURS PRN, Severe Pain, Starting on 09/20/23 at 0353, Until Ally 10/09/23 at 1820, Patient preference for lesser PRN pain meds may be honored when the patient requests a less strong medication, a lower dose, or a less intrusive route of administration when the lesser drug, dose and route have been ordered for the patient. This patient request must be documented in the MAR. $ Given 10/05/2023 12:48 PM ARTIST REPRESENTATIVE 5 mg $ Given 10/04/2023 11:29 AM ARTIST REPRESENTATIVE 5 mg $ Given 10/03/2023 8:58 PM ARTIST REPRESENTATIVE 5 mg oxyCODONE (immediate release) (Roxicodone) tablet 5 mg 5 mg, Oral, Once, 1 dose, On 09/28/23 at 2000, Patient preference for lesser PRN pain meds may be honored when the patient requests a less strong medication, a lower dose, or a less intrusive route of administration when the lesser drug, dose and route have been ordered for the patient. This patient request must be documented in the MAR. $ Given 09/28/2023 8:12 PM ARTIST REPRESENTATIVE 5 mg palonosetron (Aloxi) injection 0.25 mg 0.25 mg, Intravenous, ONCE, 1 dose, On 09/06/23 at 1430, Administer over 30 seconds. Inform patient not to take PRN Zofran for 48 hours due to increased potential to develop side effects. $ Given 09/06/2023 4:15 PM ARTIST REPRESENTATIVE 0.25 mg palonosetron (Aloxi) injection 0.25 mg 0.25 mg, Intravenous, ONCE, 1 dose, On 09/08/23 at 1600, Administer over 30 seconds. Inform patient not to take PRN Zofran for 48 hours due to increased potential to develop side effects. $ Given 09/08/2023 4:20 PM ARTIST REPRESENTATIVE 0.25 mg perflutren lipid microsphere (Definity) injection 0.5 mL 0.5 mL, Intravenous, INTRA-PROCEDURE MULTIPLE, 6 doses, Starting on 09/05/23 at 1500, Until Ally 10/09/23 at 1820, For Echo Procedure - Per Protocol Give slowly Shake well before using. $ Given 09/05/2023 3:36 PM ARTIST REPRESENTATIVE 0.5 mL posaconazole (Noxafil) tablet 300 mg 300 mg, Oral, 2 TIMES DAILY WITH MEALS, 2 doses, First dose on Fri09/04/23 at 1800, Last dose on Fri09/05/23 at 0800, Swallow whole. Do not crush, chew, or cut in half., Indication for anti-infective therapy: Chronic prophylaxis $ Given 09/05/2023 9:33 AM ARTIST REPRESENTATIVE 300 mg $ Given 09/04/2023 5:05 PM ARTIST REPRESENTATIVE 300 mg posaconazole (Noxafil) tablet 300 mg 300 mg, Oral, DAILY WITH DINNER, First dose on Fri09/05/23 at 1800, Until Discontinued, Swallow whole. Do not crush, chew, or cut in half., Indication for anti-infective therapy: Chronic prophylaxis $ Given 09/29/2023 5:10 PM ARTIST REPRESENTATIVE 300 mg $ Given 09/28/2023 5:01 PM ARTIST REPRESENTATIVE 300 mg $ Given 09/27/2023 5:41 PM ARTIST REPRESENTATIVE 300 mg potassium chloride (Klor-Con) packet 40 mEq 40 mEq, Oral, ONCE, 1 dose, On Fri09/22/23 at 0945, DISSOLVE IN 120 ML OF COLD WATER OR JUICE AND DRINK SLOWLY $ Given 09/22/2023 9:37 AM ARTIST REPRESENTATIVE 40 mEq potassium chloride (Klor-Con) packet 40 mEq 40 mEq, Oral, 2 TIMES DAILY WITH MEALS, 4 doses, First dose on Fri09/24/23 at 1015, Last dose on Fri09/25/23 at 1800, DISSOLVE IN 120 ML OF COLD WATER OR JUICE AND DRINK SLOWLY $ Given 09/25/2023 8:23 AM ARTIST REPRESENTATIVE 40 mEq $ Given 09/24/2023 5:46 PM ARTIST REPRESENTATIVE 40 mEq $ Given 09/24/2023 10:23 AM ARTIST REPRESENTATIVE 40 mEq potassium chloride 40 mEq in 270 mL bolus 40 mEq, at 67.5 mL/hr, Administer over 4 Hours, Intravenous, ONCE, 1 dose, On Fri09/24/23 at 0500 $ New Bag/Syringe 09/24/2023 5:29 AM ARTIST REPRESENTATIVE 40 mEq 67.5 mL/hr potassium chloride ER (Klor-Con M) tablet 20 mEq 20 mEq, Oral, DAILY WITH BREAKFAST, First dose on Fri09/13/23 at 0800, Until Discontinued, Do not crush or chew. $ Given 09/23/2023 8:49 AM ARTIST REPRESENTATIVE 20 mEq $ Given 09/22/2023 8:31 AM ARTIST REPRESENTATIVE 20 mEq $ Given 09/21/2023 8:09 AM ARTIST REPRESENTATIVE 20 mEq potassium chloride ER (Klor-Con M) tablet 40 mEq 40 mEq, Oral, ONCE, 1 dose, On Ally 09/25/23 at 1800, Do not crush or chew. $ Given 09/25/2023 5:37 PM ARTIST REPRESENTATIVE 40 mEq potassium chloride ER (Klor-Con M) tablet 40 mEq 40 mEq, Oral, ONCE, 1 dose, On Fri09/26/23 at 0845, Do not crush or chew. $ Given 09/26/2023 8:54 AM ARTIST REPRESENTATIVE 40 mEq potassium chloride ER (Klor-Con M) tablet 40 mEq 40 mEq, Oral, ONCE, 1 dose, On Fri10/03/23 at 0215, Do not crush or chew. $ Given 10/03/2023 6:03 AM ARTIST REPRESENTATIVE 40 mEq potassium chloride ER (Klor-Con M) tablet 40 mEq 40 mEq, Oral, 2 TIMES DAILY WITH MEALS, 4 doses, First dose on 10/04/23 at 0200, Last dose on Fri10/05/23 at 0800, Do not crush or chew. $ Given 10/05/2023 8:57 AM ARTIST REPRESENTATIVE 40 mEq $ Given 10/04/2023 6:26 PM ARTIST REPRESENTATIVE 40 mEq $ Given 10/04/2023 8:46 AM ARTIST REPRESENTATIVE 40 mEq potassium chloride ER (Klor-Con M) tablet 40 mEq 40 mEq, Oral, ONCE, 1 dose, On Fri10/04/23 at 0900, Do not crush or chew. $ Given 10/04/2023 8:45 AM ARTIST REPRESENTATIVE 40 mEq potassium chloride ER (Klor-Con M) tablet 40 mEq 40 mEq, Oral, EVERY 4 HOURS, 2 doses, First dose on Fri10/08/23 at 1200, Last dose on Fri10/08/23 at 1600, Do not crush or chew. $ Given 10/08/2023 4:14 P M ARTIST REPRESENTATIVE 40 mEq $ Given 10/08/2023 12:26 PM ARTIST REPRESENTATIVE 40 mEq potassium phosphate 15 mmol in 250 mL bolus 15 mmol, at 62.5 mL/hr, Administer over 4 Hours, Intravenous, ONCE, 1 dose, On 09/27/23 at 1345, 3 mmol phosphate = 4.4 mEq potassium $ New Bag/Syringe 09/27/2023 1:58 PM ARTIST REPRESENTATIVE 15 mmol 62.5 mL/hr potassium phosphate 30 mmol in d5w 260 mL bolus premix 30 mmol, at 43.33 mL/hr, Administer over 6 Hours, Intravenous, ONCE, 1 dose, On Fri09/26/23 at 0300, 3 mmol phosphate = 4.4 mEq potassium $ New Bag/Syringe 09/26/2023 3:41 AM ARTIST REPRESENTATIVE 30 mmol 43.33 mL/hr potassium phosphate 30 mmol in d5w 260 mL bolus premix 30 mmol, at 43.33 mL/hr, Administer over 6 Hours, Intravenous, ONCE, 1 dose, On Fri09/28/23 at 0030, 3 mmol phosphate = 4.4 mEq potassium Current Rate 09/28/2023 7:53 AM ARTIST REPRESENTATIVE 43.3 mL/hr Rate Change 09/28/2023 2:11 AM ARTIST REPRESENTATIVE 43.3 mL/hr $ New Bag/Syringe 09/28/2023 2:08 AM ARTIST REPRESENTATIVE 30 mmol 43.33 mL/hr potassium phosphate 30 mmol in d5w 260 mL bolus premix 30 mmol, at 43.33 mL/hr, Administer over 6 Hours, Intravenous, ONCE, 1 dose, On Fri09/29/23 at 0030, 3 mmol phosphate = 4.4 mEq potassium $ New Bag/Syringe 09/29/2023 1:02 AM ARTIST REPRESENTATIVE 30 mmol 43.33 mL/hr prochlorperazine (Compazine) injection 5 mg 5 mg, Intravenous, EVERY 4 HOURS PRN, Nausea/Vomiting, Starting on 09/06/23 at 1011, Until 09/20/23 at 1259, Max intravenous rate = 5 mg/min. First line therapy for Grade 1 nausea, loss of appetite, or initial onset of vomiting 1-2 episodes. Use IV if patient unable to tolerate oral administration $ Given 09/18/2023 8:33 PM ARTIST REPRESENTATIVE 5 mg $ Given 09/15/2023 4:36 AM ARTIST REPRESENTATIVE 5 mg prochlorperazine (Compazine) injection 5 mg 5 mg, Intravenous, ONCE, 1 dose, On Fri09/21/23 at 0515, Max intravenous rate = 5 mg/min $ Given 09/21/2023 4:57 AM ARTIST REPRESENTATIVE 5 mg prochlorperazine (Compazine) injection 5 mg 5 mg, Intravenous, EVERY 6 HOURS PRN, Nausea/Vomiting, Starting on Fri09/23/23 at 1607, Until Fri10/09/23 at 1820, Max intravenous rate = 5 mg/min $ Given 10/05/2023 8:41 PM ARTIST REPRESENTATIVE 5 mg $ Given 10/05/2023 1:56 AM ARTIST REPRESENTATIVE 5 mg $ Given 10/03/2023 8:55 PM ARTIST REPRESENTATIVE 5 mg prochlorperazine (Compazine) tablet 10 mg 10 mg, Oral, EVERY 4 HOURS PRN, Nausea/Vomiting, Starting on 10/04/23 at 0852, Until Ally 10/09/23 at 1820, First line therapy for Grade 1 nausea, loss of appetite, or initial onset of vomiting 1-2 episodes. Use IV if patient unable to tolerate oral administration $ Given 10/09/2023 10:56 AM ARTIST REPRESENTATIVE 10 mg saline nasal spray ([place]; Baby Mulberry) 0.65 % nasal spray 1 spray 1 spray, Each Nostril, 4 TIMES DAILY, 8 doses, First dose on Fri09/11/23 at 0745, Last dose on Fri09/12/23 at 2100 $ Given 09/12/2023 4:20 PM ARTIST REPRESENTATIVE 1 sp ray $ Given 09/12/2023 11:33 AM ARTIST REPRESENTATIVE 1 spray $ Given 09/12/2023 9:17 AM ARTIST REPRESENTATIVE 1 spray simethicone (Mylicon) chew tablet 80 mg 80 mg, Oral, 4 TIMES DAILY PRN, Gas Pain, Starting on Fri09/15/23 at 0445, Until Fri10/09/23 at 1820 $ Given 09/18/2023 8:33 PM ARTIST REPRESENTATIVE 80 mg $ Given 09/15/2023 4:52 AM ARTIST REPRESENTATIVE 80 mg sodium - potassium phosphates (K Phos Neutral) tablet 1 tablet 1 tablet, Oral, 2 TIMES DAILY, 7 doses, First dose on Fri09/23/23 at 0900, Last dose on Fri09/26/23 at 0900, Contains Phos 8 mmol, K+ 1.1 mEq, Na 13 mEq per tablet $ Given 09/25/2023 8:05 PM ARTIST REPRESENTATIVE 1 tablet $ Given 09/25/2023 8:18 AM ARTIST REPRESENTATIVE 1 tablet $ Given 09/24/2023 8:19 PM ARTIST REPRESENTATIVE 1 tablet sodium - potassium phosphates (K Phos Neutral) tablet 1 tablet 1 tablet, Oral, ONCE, 1 dose, On Fri09/24/23 at 2145, Contains Phos 8 mmol, K+ 1.1 mEq, Na 13 mEq per tablet $ Given 09/24/2023 10:34 PM ARTIST REPRESENTATIVE 1 tablet sodium - potassium phosphates (K Phos Neutral) tablet 2 tablet 2 tablet, Oral, 2 TIMES DAILY, 8 doses, First dose on Fri09/26/23 at 0900, Last dose on Fri09/29/23 at 2100, Contains Phos 8 mmol, K+ 1.1 mEq, Na 13 mEq per tablet $ Given 09/29/2023 9:25 PM ARTIST REPRESENTATIVE 2 tablets $ Given 09/29/2023 8:41 AM ARTIST REPRESENTATIVE 2 tablets $ Given 09/28/2023 8:11 PM ARTIST REPRESENTATIVE 2 tablets sodium - potassium phosphates (K Phos Neutral) tablet 2 tablet 2 tablet, Oral, ONCE, 1 dose, On Fri09/30/23 at 0715, Contains Phos 8 mmol, K+ 1.1 mEq, Na 13 mEq per tablet $ Given 09/30/2023 8:22 AM ARTIST REPRESENTATIVE 2 tablets sodium - potassium phosphates (K Phos Neutral) tablet 2 tablet 2 tablet, Oral, ONCE, 1 dose, On Fri09/30/23 at 1645, Contains Phos 8 mmol, K+ 1.1 mEq, Na 13 mEq per tablet $ Given 09/30/2023 6:23 PM ARTIST REPRESENTATIVE 2 tablets sodium - potassium phosphates (K Phos Neutral) tablet 2 tablet 2 tablet, Oral, ONCE, 1 dose, On Fri10/02/23 at 1400, Contains Phos 8 mmol, K+ 1.1 mEq, Na 13 mEq per tablet $ Given 10/02/2023 2:05 PM ARTIST REPRESENTATIVE 2 tablets sodium phosphate 30 mmol IVPB 260 mL 30 mmol, at 43.33 mL/hr, Administer over 6 Hours, Intravenous, ONCE, 1 dose, On Fri09/09/23 at 0400 $ New Bag/Syringe 09/09/2023 7:22 AM ARTIST REPRESENTATIVE 30 mmol 43.33 mL/hr sodium phosphate 30 mmol IVPB 260 mL 30 mmol, at 43.33 mL/hr, Administer over 6 Hours, Intravenous, ONCE, 1 dose, On Fri09/26/23 at 1645 $ New Bag/Syringe 09/26/2023 4:56 PM ARTIST REPRESENTATIVE 30 mmol 43.33 mL/hr sodium phosphate 40 mmol in dextrose 5 % 263.3 mL bolus 40 mmol, at 43.88 mL/hr, Administer over 6 Hours, Intravenous, ONCE, 1 dose, On Fri09/25/23 at 1000 $ New Bag/Syringe 09/25/2023 9:53 AM ARTIST REPRESENTATIVE 40 mmol 43.88 mL/hr sterile water for injection (preservative free) injection ADS Med 1 dose, Starting on Fri10/01/23 at 1827, Until Fri10/01/23 at 1831, Created by cabinet override $ New Bag/Syringe 10/01/2023 6:31 PM ARTIST REPRESENTATIVE 10 mL valACYclovir (Valtrex) tablet 500 mg 500 mg, Oral, 2 TIMES DAILY, First dose on Ally 09/04/23 at 2100, Until Discontinued, Indication for anti-infective therapy: Chronic prophylaxis $ Given 10/09/2023 9:10 AM ARTIST REPRESENTATIVE 500 mg $ Given 10/08/2023 8:39 PM ARTIST REPRESENTATIVE 500 mg $ Given 10/08/2023 8:38 AM ARTIST REPRESENTATIVE 500 mg vancomycin (Vancocin) 2,500 mg in 550 mL IVPB 2,500 mg, at 220 mL/hr, Intravenous, ONCE, 1 dose, On Fri09/22/23 at 1730, Indication for anti-infective therapy: Suspected infection, Site of anti-infective therapy: Blood Current Rate 09/22/2023 8:21 PM ARTIST REPRESENTATIVE 220 mL/hr $ New Bag/Syringe 09/22/2023 6:34 PM ARTIST REPRESENTATIVE 2,500 mg 220 mL /hr vancomycin HCl (Vancocin) 1,250 mg in 0.9% NaCl IV 250 mL IVPB 1,250 mg, at 200 mL/hr, Intravenous, EVERY 8 HOURS, First dose on Fri09/23/23 at 0300, Until Discontinued, Indication for anti-infective therapy: Suspected infection, Site of anti-infective therapy: Blood $ New Bag/Syringe 09/23/2023 2:15 AM ARTIST REPRESENTATIVE 1,250 mg 200 mL/hr documented in this encounter Active and Recently Administered Medications Times are shown in ARTIST REPRESENTATIVE. Scheduled Medication Order 10/07/2023 10/08/2023 10/09/2023 0.9% NaCl injection 3 mL(Linked Group 1) 3 mL, Intracatheter, EVERY 8 HOURS, First dose on Ally 09/04/23 at 1400, Until Discontinued, Flush peripheral IV catheter with 3 mL of normal saline every 8 hours. 0600 (Canceled Entry - Provider: Queta Moreno RN)142 (Canceled Entry - Provider: Maureen Vasquez RN)2034 ($ Given - Provider: Komal Gomez RN) 06 ($ Given - Provider: Komal Gomez RN)1332 (Canceled Entry - Provider: Chandu Padgett, RN)2043 (Canceled Entry - Provider: Marly Wharton, RN) 0619 (Canceled Entry - Provider: Marly Wharton RN)1428 ($ Given - Provider: Fabien Anna, Graduate Nurse) acetaZOLAMIDE (Diamox) tablet 500 mg 500 mg, Oral, 2 TIMES DAILY, First dose on Fri10/07/23 at 0900, Until Discontinued 825 ($ Given - Provider: Maureen Vasquez RN)2033 ($ Given - Provider: Komal Gomez RN) 0838 ($ Given - Provider: Chandu Padgett RN)2038 ($ Given - Provider: Marly Wharton RN) 0910 ($ Given - Provider: Fabien Anna, Graduate Nurse) cytarabine (Cytosar) 6,700 mg in 0.9% NaCl IV 597 mL infusion (COMPLETED) 6,700 mg (rounded from 6,720 mg = 3,000 mg/m2 ? 2.24 m2 Treatment Plan BSA from Recorded weight), at 199 mL/hr, Administer over 3 Hours, Intravenous, EVERY 12 HOURS, 2 doses, First dose on Fri10/06/23 at 1100, Last dose on Fri10/06/23 at 2300, . PREMEDICATION(s): should be administered at least 30 minutes prior to infusion 0024 (Current Rate - Provider: Queta Moreno RN)0215 (Stopped - Provider: Queta Moreno RN)0216 (Stopped - Provider: Queta Moreno RN)0219 (Stopped - Provider: Sheron Weber RN) cytarabine (Cytosar) 6,700 mg in 0.9% NaCl IV 597 mL infusion (COMPLETED) 6,700 mg (rounded from 6,720 mg = 3,000 mg/m2 ? 2.24 m2 Treatment Plan BSA from Recorded weight), at 199 mL/hr, Administer over 3 Hours, Intravenous, EVERY 12 HOURS, 2 doses, First dose on Fri10/08/23 at 0900, Last dose on Fri10/08/23 at 2100, . PREMEDICATION(s): should be administered at least 30 minutes prior to infusion 0922 ($ New Bag/Syringe - Provider: Chandu Padgett RN)1235 (Stopped - Provider: Chandu Padgett RN)2124 ($ New Bag/Syringe - Provider: Marly Wharton RN - Comment: positive blood return from CVC; cerebellar WNL) 0026 (Stopped - Provider: Marly Wharton RN) dexAMETHasone (Decadron) 0.1 % ophthalmic suspension 2 drop 2 drop, Each Eye, FOUR TIMES DAILY, 32 doses, First dose on 10/04/23 at 1000, Last dose on Fri10/12/23 at 0600, Shake well before using. 0633 ($ Given - Provider: Queta Moreno RN)1006 ($ Given - Provider: Maureen Vasquez RN)1421 ($ Given - Provider: Maureen Vasquez RN)2035 ($ Given - Provider: Komal Gomez RN) 0625 ($ Given - Provider: Komal Gomez RN)1017 ($ Given - Provider: Chandu Padgett RN)1332 ($ Given - Provider: Chandu Padgett RN)204 ($ Given - Provider: Marly Wharton RN) 0603 ($ Given - Provider: Marly Wharton RN)0910 ($ Given - Provider: Fabien Anna, Graduate Nurse)1433 ($ Given - Provider: Fabien Anna, Graduate Nurse) dexAMETHasone (Decadron) injection 8 mg (COMPLETED) 8 mg, Intravenous, ONCE, 1 dose, On Fri10/08/23 at 0830, Administer 30 minutes prior to chemotherapy ONLY IF patient did not take oral dexamethasone. 0837 ($ Given - Provider: Chandu Padgett RN) famotidine (Pepcid) tablet 20 mg 20 mg, Oral, 2 TIMES DAILY, First dose on 09/06/23 at 1015, Until Discontinued 0826 ($ Given - Provider: Maureen Vasquez RN)203 ($ Given - Provider: Komal Gomez RN) 0837 ($ Given - Provider: Chandu Padgett RN)2040 ($ Given - Provider: Marly Wharton RN) 0910 ($ Given - Provider: Fabien Anna, Graduate Nurse) heparin injection 7,500 Units (CANCELED) 7,500 Units, Subcutaneous, EVERY 8 HOURS, First dose on Fri10/07/23 at 1545, Until Discontinued 1548 ($ Given - Provider: Maureen Vasquez, RN)2033 ($ Given - Provider: Komal Gomez, RN) 0625 ($ Given - Provider: Komal Gomez, RN) ondansetron (Zofran) injection 8 mg (COMPLETED) 8 mg, Intravenous, EVERY 12 HOURS, 2 doses, First dose on Fri10/08/23 at 0830, Last dose on Fri10/08/23 at 2030, Administer over 2 to 5 minutes. Administer 30 minutes prior to chemotherapy. 08 ($ Given - Provider: Chandu Padgett RN)2038 ($ Given - Provider: Marly Wharton, RN) perflutren lipid microsphere (Definity) injection 0.5 mL 0.5 mL, Intravenous, INTRA-PROCEDURE MULTIPLE, 6 doses, Starting on Fri09/05/23 at 1500, Until Fri10/09/23 at 1820, For Echo Procedure - Per Protocol Give slowly Shake well before using. potassium chloride ER (Klor-Con M) tablet 40 mEq (COMPLETED) 40 mEq, Oral, EVERY 4 HOURS, 2 doses, First dose on Fri10/08/23 at 1200, Last dose on Fri10/08/23 at 1600, Do not crush or chew. 1226 ($ Given - Provider: Chandu Padgett, CORRIE)1614 ($ Given - Provider: Chandu Padgett, RN) valACYclovir (Valtrex) tablet 500 mg 500 mg, Oral, 2 TIMES DAILY, First dose on Fri09/04/23 at 2100, Until Discontinued, Indication for anti-infective therapy: Chronic prophylaxis 08 ($ Given - Provider: Maureen Vasquez, RN)2033 ($ Given - Provider: Komal Gomez, RN) 0838 ($ Given - Provider: Chandu Padgett RN)2038 ($ Given - Provider: Marly Wharton, RN) 0910 ($ Given - Provider: Fabien Anna, Graduate Nurse) PRN Medication Order 10/07/2023 10/08/2023 10/09/2023 0.9% NaCl infusion rate and volume at 20 mL/hr, 250 mL, ONCE PRN, Starting on Ally 10/09/23 at 0836, Until Ally 10/09/23 at 1820, Normal Saline flush bag for blood and blood product administration 0.9% NaCl injection 1-10 mL(Linked Group 1) 1-10 mL, Intracatheter, PRN, Other, peripheral line flush, Starting on Ally 09/04/23 at 1226, Until Ally 10/09/23 at 1820, Flush peripheral IV catheter with 1-10 mL of normal saline before and after medications and prn to clear blood from the line or to verify patency. acetaminophen (Tylenol) tablet 650 mg 650 mg, Oral, EVERY 6 HOURS PRN, Fever, Mild Pain, Headache, Starting on 09/27/23 at 1326, Until Ally 10/09/23 at 1820, Patient preference for lesser PRN pain meds may be honored when the patient requests a less strong medication, a lower dose, or a less intrusive route of administration when the lesser drug, dose and route have been ordered for the patient. This patient request must be documented in the MAR. ALPRAZolam (Xanax) tablet 0.25 mg 0.25 mg, Oral, 2 TIMES DAILY PRN, Anxiety, Starting on 09/20/23 at 1259, Until Ally 10/09/23 at 1820 dextrose 10 % IV bolus(Linked Group 2) 12.5 g, at 468.75 mL/hr, Intravenous, PRN, Other, Bedside Glucose less than 70 mg/dL -If NOT able to eat and/or NPO and with IV Access, Starting on Fri09/26/23 at 0833, Until Ally 10/09/23 at 1820, If NOT able to eat and/or NPO [...] NPO and with IV Access, Starting on Fri09/26/23 at 0833, Until Ally 10/09/23 at 1820, If NOT able to eat and/or NPO [...] IV STAT NOTIFY PROVIDER OF HYPOGLYCEMIC EVENT. dicyclomine (Bentyl) tablet 20 mg 20 mg, Oral, 3 TIMES DAILY PRN, cramping, Starting on Fri09/15/23 at 1042, Until Ally 10/09/23 at 1820 docusate sodium (Colace) solution 50 mg 50 mg, Oral, AT BEDTIME PRN, Constipation, Starting on Fri09/21/23 at 2000, Until Ally 10/09/23 at 1820 glucagon (Glucagen) injection 1 mg(Linked Group 2) 1 mg, Subcutaneous, PRN, Bedside Glucose less than 70 mg/dL - If NOT able to eat and/or NPO and withOUT IV Access, Starting on Fri09/26/23 at 0833, Until Ally 10/09/23 at 1820, If NOT able to eat and/or NPO [...] Glucose less than 70 mg/dL, Starting on Fri09/26/23 at 0833, Until Ally 10/09/23 at 1820, If able to eat and is better able to swallow gel: For Bedside Glucose 54 - 69 mg/dL [...] for choices) NOTIFY PROVIDER OF HYPOGLYCEMIC EVENT. guaiFENesin (Robitussin) solution 10 mL 10 mL, Oral, EVERY 6 HOURS PRN, Cough, Starting on 09/28/23 at 0008, Until Ally 10/09/23 at 1820 heparin lock flush injection 500 Units 500 Units, Intracatheter, PRN, Other, line flushes as needed, Starting on Tu09/16/23 at 1046, Until Ally 10/09/23 at 1819 2034 ($ Given - Provider: Komal Gomez RN) melatonin tablet 3 mg 3 mg, Oral, AT BEDTIME PRN, Insomnia, Starting on Ally 09/04/23 at 0149, Until Ally 10/09/23 at 1820 ondansetron (disintegrating) (Zofran ODT) tablet 8 mg 8 mg, Oral, 2 TIMES DAILY PRN, Nausea/Vomiting, Starting on 09/06/23 at 1011, Until Ally 10/09/23 at 1820, Second line therapy if failed prochlorperazine with continued loss of appetite and > 3 episodes of vomiting. Do not administer if patient received palonosetron within 48 hours or exceed ondansetron 32 mg in 24 hours. Use IV if patient unable to tolerate oral administration. Dissolved orally on tongue 2033 ($ Given - Provider: Komal Gomez RN) ondansetron (Zofran) injection 8 mg 8 mg, Intravenous, 2 TIMES DAILY PRN, Nausea/Vomiting, Starting on 09/06/23 at 1011, Until Ally 10/09/23 at 1820, Administer over 2 to 5 minutes. Second line therapy if failed prochlorperazine with continued loss of appetite and > 3 episodes of vomiting. Do not administer if patient received palonosetron within 48 hours or exceed ondansetron 32 mg in 24 hours. Use IV if patient unable to tolerate oral administration. oxyCODONE (immediate release) (Roxicodone) tablet 5 mg 5 mg, Oral, EVERY 6 HOURS PRN, Severe Pain, Starting on 09/20/23 at 0353, Until Ally 10/09/23 at 1820, Patient preference for lesser PRN pain meds may be honored when the patient requests a less strong medication, a lower dose, or a less intrusive route of administration when the lesser drug, dose and route have been ordered for the patient. This patient request must be documented in the MAR. prochlorperazine (Compazine) injection 5 mg 5 mg, Intravenous, EVERY 6 HOURS PRN, Nausea/Vomiting, Starting on 09/23/23 at 1607, Until Ally 10/09/23 at 1820, Max intravenous rate = 5 mg/min prochlorperazine (Compazine) tablet 10 mg 10 mg, Oral, EVERY 4 HOURS PRN, Nausea/Vomiting, Starting on 10/04/23 at 0852, Until Ally 10/09/23 at 1820, First line therapy for Grade 1 nausea, loss of appetite, or initial onset of vomiting 1-2 episodes. Use IV if patient unable to tolerate oral administration 1056 ($ Given - Provider: Fabien Anna, Graduate Nurse) simethicone (Mylicon) chew tablet 80 mg 80 mg, Oral, 4 TIMES DAILY PRN, Gas Pain, Starting on 09/15/23 at 0445, Until Ally 10/09/23 at 1820 Linked Groups Order Group 1: SALINE LOCK, INSERT AND MAINTAIN (CANCELED) Routine, CONTINUOUS, Starting on Fri09/04/23 at 1230, Until Specified, New collection And 0.9% NaCl injection 3 mLJump to med 3 mL, Intracatheter, EVERY 8 HOURS, First dose on Fri09/04/23 at 1400, Until Discontinued, Flush peripheral IV catheter with 3 mL of normal saline every 8 hours. And 0.9% NaCl injection 1-10 mLJump to med 1-10 mL, Intracatheter, PRN, Other, peripheral line flush, Starting on Fri09/04/23 at 1226, Until Fri10/09/23 at 1820, Flush peripheral IV catheter with 1-10 mL of normal saline before and after medications and prn to clear blood from the line or to verify patency. Group 2: dextrose 10 % IV bolusJump to med 12.5 g, at 468.75 mL/hr, Intravenous, PRN, Other, Bedside Glucose less than 70 mg/dL -If NOT able to eat and/or NPO and with IV Access, Starting on Fri09/26/23 at 0833, Until Fri10/09/23 at 1820, If NOT able to eat and/or NPO [...] NPO and with IV Access, Starting on Fri09/26/23 at 0833, Until Fri10/09/23 at 1820, If NOT able to eat and/or NPO [...] NPO and withOUT IV Access, Starting on Fri09/26/23 at 0833, Until Ally 10/09/23 at 1820, If NOT able to eat and/or NPO [...] discard unused portion documented in this encounter Additional Health Concerns Infection Onset Date Last Indicated Resolved Time CDIFF Under Investigation 09/14/2023 09/15/2023 1:20 PM ARTIST REPRESENTATIVE COVID-19 Under Investigation 09/22/2023 09/22/2023 09/23/2023 12:28 AM ARTIST REPRESENTATIVE documented as of this encounter Care Teams Bariatric Program Coordinator Relationship Specialty Start Date End Date Nilam Mayers MD [address] [place] [phone] PCP - General Family Medicine 09/04/23 04/18/24 documented as of this encounter
--- OUTSIDE RECORDS SUMMARY | 2024-08-31 21:33 | XMS_ITS | Encounter Summary ---
Author Organization [facility] Address [facility] [place] [address] Care Team Providers Care Rug Sample Beveler Name Role Phone Nilam Mayers MD Primary Care Provider +1- [phone] Osmar Ragland MD Primary Care Provider +1 [phone] Encounter Details Date Type Department Care Team (Late st Contact Info) Description 10/08/2023 Ophth Exam [facility] - Ophthalmology [address] [place] [address] Dano Jean MD [address] [facility] [place] [address] Social History Tobacco Use Types [...] care, and heating? Not very hard 09/06/2023 [facility] [place] of Occupat ional Health - Occupational [...] slept in a assisted (including now)? No 09/06/2023 Sex and Gender [...] st Contact Info) Description 10/27/2024 10:30 AM WASHHOUSE HAND Appointment [facility] [address] [phone] Hussain Carias MD [address] [place] [address] Britni Winston, PA-C [address] [place] [address] 11/17/2024 9:00 AM WASHHOUSE HAND Office Visit [facility] - Ophthalmology [address] [place] [address], [place] [address] Song Hobson MD [address] [place] [address] [place] [address] documented as of this encounter Visit Diagnoses Not on filedocumented in this encounter Additional Health Concerns Infection Onset Date Last Indicated Resolved Time COVID-19 Under Investigation 11/10/2023 11/10/2023 11/10/2023 6:57 PM WASHHOUSE HAND COVID-19 Under Investigation 12/19/2023 12/19/2023 12/19/2023 3:31 PM CDT documented as of this encounter Care Teams Rug Sample Beveler Relationship Specialty Start Date End Date Nilam Mayers MD [address] [place] [phone] PCP - General Family Medicine 09/04/23 04/18/24 Osmar Ragland MD [address] [place] [phone] PCP - General Family Medicine 04/19/24 documented as of this encounter
--- OUTSIDE RECORDS SUMMARY | 2024-08-31 21:33 | XMS_ITS | Encounter Summary ---
Author Organization [facility] Address [address] [place] [address] Care Team Providers Care Packager Machine Name Role Phone Nilam Mayers MD Primary Care Provider +1- [phone] Reason for Visit * Auth/Cert (Routine) Specialty Diagnoses / Procedures Referred By Contac t Referred To Contact Diagnoses Acute leukemia. Referral ID Status Reason Start Date Expiration Date Visits Re quested Visits Authorized [id number] 1 1 Encounter Details Date Type Department Care Team (Late st Contact Info) Description 09/30/2023 9:35 AM STOCKBROKER Clinical Support [facility] - Ophthalmology [address] [place] [phone] Song Hobson MD [address] [place] [address] [place] [phone] Umair Tan MD [address] [place] [address] DIV OF [facility] [place] [address] Optic disc edema (Primary Dx) Social History [...] care, and heating? Not very hard 09/06/2023 [facility] of Occupat ional Health - [...] st Contact Info) Description 10/27/2024 10:30 AM STOCKBROKER Appointment [facility] [address] [place] [address] Hussain Carias MD [address] [place] [phone] Britni Winston, PA-C [address] [place], [place] [phone] 11/17/2024 9:00 AM STOCKBROKER Office Visit [facility] - Ophthalmology [address] [place] [phone] Song Hobson MD [address] [place] [address] [place] [phone] Pending Results Name Type Priority Associated Diagnoses Date /Time DOLL AUTO VISUAL FIELD EXTENDED Ophthalmology Routine Optic disc edema 09/30/2023 9:34 AM STOCKBROKER documented as of this encounter Visit Diagnoses Diagnosis Optic disc edema- Primary Papilloedema, unspecified documented in this encounter Care Teams Packager Machine Relationship Specialty Start Date End Date Nilam Mayers MD [address] [place] [phone] PCP - General Family Medicine 09/04/23 04/18/24 documented as of this encounter
--- OUTSIDE RECORDS SUMMARY | 2024-08-31 21:33 | XMS_ITS | Encounter Summary ---
Author Organization [facility] Address [facility]3 [facility] [place] [address] Care Team Providers Care Recruiting Intern Name Role Phone Nilam Mayers MD Primary Care Provider +1- [phone] Encounter Details Date Type Department Care Team (Late st Contact Info) Description 09/22/2023 Orders Only [facility] [address] [place] [phone] Criss Ramirez, PharmD Social History Tobacco Use Types Packs/Day Years [...] care, and heating? Not very hard 09/06/2023 [facility] [place] of Occupat ional Health - Occupational Stress [...] st Contact Info) Description 10/27/2024 10:30 AM SCRUBBER SYSTEM ATTENDANT Appointment [facility] [address] [place] [address] Hussain Carias MD [address] [place] [address] Britni Winston PA-C [address] [place] [address] 11/17/2024 9:00 AM SCRUBBER SYSTEM ATTENDANT Office Visit [facility] - Ophthalmology [address] [place] [address], [place] [phone] Song Hobson MD [facility] DEPT [place] [address] documented as of this encounter Visit Diagnoses Not on filedocumented in this encounter Additional Health Concerns Infection Onset Date Last Indicated Resolved Time COVID-19 Under Investigation 09/22/2023 09/22/2023 09/23/2023 12:28 AM SCRUBBER SYSTEM ATTENDANT documented as of this encounter Care Teams Recruiting Intern Relationship Specialty Start Date End Date Nilam Mayers MD [address] [place] [phone] PCP - General Family Medicine 09/04/23 04/18/24 documented as of this encounter
--- OUTSIDE RECORDS SUMMARY | 2024-08-31 21:33 | XMS_ITS | Encounter Summary ---
Author Organization [facility] Address [address] [place], [place] [address] [address] Care Team Providers Care Link Wire Fabric Machine Tender Name Role Phone Unavailable Primary Care Provider Unavailabl e Reason for Visit * Reason Onset Date Comments Md Requested Call 09/03/2023 Encounter Details Date Type Department Care Team (Late st Contact Info) Description 09/03/2023 Telephone [facility] - Hematology/Oncology [address] [place] [address] Velma Toney MD [address] [place], [place] [phone] Requested Call Social History Tobacco Use Types [...] Telephone Encounter - Velma Toney MD - 09/03/2023 2:56 PM CST Was called by oncology DIRECTOR PHARMACOVIGILANCE about Sarah Mckeon who is a 38 y F with no PMH wo presented with fatigue, being treated for tonsillitis and developed pancytopenia. CT chest abdomen and pelvis was WNL. 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 Was able to reach the pathology dept and get rest of molecular and cytogenetic studies added on to the sample. Internal medicine will be the admitting team On arrival, would recommend obtaining: - STAT CBC w/diff, CMP, Mg, PO, Uric acid, DIC work up (D- Dimer, Fibrinogen and PT/PTT/INR), Hemolysis (LDH, Retics count, haptoglobin) - HIV, HBV, and HCV screening as well as CMV and EBV serology and PCR - Obtain a TTE to assess for EF and cardiac function - Start allopurinol 300 mg daily (renally dose as needed) on arrival following creatinine results - May need IVFs if able to tolerate, especially if concern for TLS - Please obtain a full ID workup (BCx, UA, CXR) if there is concern for infection - If uric acid > 7-8 and concern for TLS, may need to give IV rasburicase. Would contact Heme Fellow if concerned - Transfusion goals plts > 10 K, Hb >7.0, Fibronogen > 100. Please give both leukoreduced and irratiated blood if needed Velma Toney MD, PGY-4 Hematology-Oncology Fellow [facility] L BUFFER documented in this encounter Plan of Treatment Upcoming Encounters Date Type Department Care Team (Late st Contact Info) Description 10/27/2024 10:30 AM WHEEL BUFFER Appointment [facility] [address] [place] [address] Hussain Carias MD [address] [place] [address] Britni Winston, PABaronC [address] [place] [address] 11/17/2024 9:00 AM WHEEL BUFFER Office Visit [facility] - Ophthalmology [address] [place] [phone] Song Hobson MD [address] [place] [address] [place] [address] documented as of this encounter Visit Diagnoses Not on filedocumented in this encounter
--- OUTSIDE RECORDS SUMMARY | 2024-08-31 21:33 | XMS_ITS | Encounter Summary ---
Author Organization [facility] Address [address] [place], [place] [address] [address] Care Team Providers Care Cutting Torch Operator Name Role Phone Nilam Mayers MD Primary Care Provider +1- [phone] Reason for Visit * Reason Onset Date Comments Referral 09/30/2023 Encounter Details Date Type Department Care Team (Late st Contact Info) Description 09/30/2023 Telephone [facility] [place] [address] Trinidad Cedillo, management professional Social History Tobacco Use Types Packs/Day Years [...] care, and heating? Not very hard 09/06/2023 [facility] [place] of Occupat ional Health - Occupational Stress [...] No 09/03/2023 documented as of this encounter Miscellaneous Notes * Telephone Encounter - Trinidad Cedillo, RN - 09/30/2023 2:11 PM RAIL LAYER Referral received from inpatient team, Dr. Hodges for this patient to be seen by Radiation Medicine. Dr. Tan is the attending. Dr. Villareal was informed. LAYER documented in this encounter Plan of Treatment Upcoming Encounters Date Type Department Care Team (Late st Contact Info) Description 10/27/2024 10:30 AM RAIL LAYER Appointment [facility] [address] [place] [address] Hussain Carias MD [address] [place] [phone] Britni Winston PABaronC [address] [place] [address] 11/17/2024 9:00 AM RAIL LAYER Office Visit [facility] - Ophthalmology [address] [place] [phone] Song Hobson MD [address] [place] [address] DE[place] [address] documented as of this encounter Visit Diagnoses Not on filedocumented in this encounter Care Teams Cutting Torch Operator Relationship Specialty Start Date End Date Nilam Mayers MD [address] [place] [phone] PCP - General Family Medicine 09/04/23 04/18/24 documented as of this encounter
--- OUTSIDE RECORDS SUMMARY | 2024-08-31 21:33 | XMS_ITS | Encounter Summary ---
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 Not very hard 09/06/2023 [facility] [place] [facility] of Occupat ional Health - Occupational Stress [...] st Contact Info) Description 10/27/2024 10:30 AM SALES FORECAST ANALYST Appointment [facility] [address] [place] [address] Hussain Carias MD [address] [place] [phone] Britni Winston, PA-C [address] [place] [address] 11/17/2024 9:00 AM SALES FORECAST ANALYST Office Visit [facility] - Ophthalmology [address] [place] [phone] Song Hobson MD [address] [place] [address] [place] [phone] Scheduled Orders Name Type Priority Associated Diagnoses Orde r Schedule PROC BONE MARROW BIOPSY/ASPIRATION Procedures Routine 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
--- OUTSIDE RECORDS SUMMARY | 2024-08-31 21:33 | XMS_ITS | Encounter Summary ---
Author Organization [facility] Address [address] [place], [place] [address] [address] Care Team Providers Care Admitting Interviewer Name Role Phone Nilam Mayers MD Primary Care Provider +1- [phone] Encounter Details Date Type Department Care Team (Late st Contact Info) Description 10/03/2023 Orders Only [facility] - Hematology/Oncology [address] [place] [address] Remington Stafford MD [address] [facility] ONCOL[facility] [place], [place] [phone] Social History Tobacco Use Types Packs/Day Years Used Date Smoking Tobacco: Former Cigarettes 1 6 2010 Smokeless Tobacco: Never Alcohol Use Standard [...] care, and heating? Not very hard 09/06/2023 [facility] [place] of Occupat ional Health - Occupational Stress [...] st Contact Info) Description 10/27/2024 10:30 AM REMEDIATION PROJECT ENGINEER Appointment [facility] [address] [place] [address] Hussain Carias MD [address] [place] [phone] Britni Winston, PA-C [address] [place], [place] [phone] 11/17/2024 9:00 AM REMEDIATION PROJECT ENGINEER Office Visit [facility] - Ophthalmology [address] [place] [phone] Song Hobson MD [address] [place] [address] [place] [address] documented as of this encounter Visit Diagnoses Not on filedocumented in this encounter Care Teams Admitting Interviewer Relationship Specialty Start Date End Date Nilam Mayers MD [address] [place] [phone] PCP - General Family Medicine 09/04/23 04/18/24 documented as of this encounter
== END 2024-08-28 07:39 | disposition home or self-care (01) ==
PROVIDERS: PCP Family Medicine; Visit Provider Family Medicine
DX: M25.561 Pain in right knee (principal); S83.241A Other tear of medial meniscus, current injury, right knee, initial encounter; M23.021 Cystic meniscus, posterior horn of medial meniscus, right knee; M25.461 Effusion, right knee
CPT/HCPCS: 73721

== ENCOUNTER 2024-10-15 11:02 | Outpatient (CLI) | payer OTHER, SELFPAY ==
--- OUTSIDE RECORDS SUMMARY | 2024-10-15 11:08 | XMS_ITS | Encounter Summary ---
Author Organization [facility] Address [facility]3 [facility] [place] [address] Care Team Providers Care Machine Woodworking Sander Name Role Phone Nilam Mayers MD Primary Care Provider [phone]- [phone] Osmar Ragland MD Primary Care Provider +[phone] Encounter Details Date Type Department Care Team (Late st Contact Info) Description 09/30/2023 Ophth Exam [facility] - Ophthalmology [address] [place] [address] Dano Jean MD 1201 [facility] [place] [address] Social History Tobacco Use Types [...] and heating? Not very hard 09/06/2023 [facility] [place] of Occupat ional Health - Occupational Stress [...] st Contact Info) Description 10/27/2024 10:30 AM GROUND SERVICE EQUIPMENT MECHANIC Appointment [facility] [address] [phone] Hussain Carias MD [address] [place] [address] Britni Winston, PA-C 1201 [place] [address] 11/17/2024 9:00 AM GROUND SERVICE EQUIPMENT MECHANIC Office Visit [facility] - Ophthalmology [address] [place] [address], [place] [address] Song Hobson MD [address] [place] [address] [place] [address] documented as of this encounter Visit Diagnoses Not on filedocumented in this encounter Additional Health Concerns Infection Onset Date Last Indicated Resolved Time COVID-19 Under Investigation 11/10/2023 11/10/2023 11/10/2023 6:57 PM GROUND SERVICE EQUIPMENT MECHANIC COVID-19 Under Investigation 12/19/2023 12/19/2023 12/19/2023 3:31 PM CDT documented as of this encounter Care Teams Machine Woodworking Sander Relationship Specialty Start Date End Date Nilam Mayers MD [address] [place] [phone] PCP - General Family Medicine 09/04/23 04/18/24 Osmar Ragland MD [address] [place] [phone] PCP - General Family Medicine 04/19/24 documented as of this encounter
--- OUTSIDE RECORDS SUMMARY | 2024-10-15 11:08 | XMS_ITS | Encounter Summary ---
Author Organization [facility] Address [address] [place], [place] [address] [address] Care Team Providers Care Manager Ed Name Role Phone Nilam Mayers MD Primary Care Provider [phone]- [phone] Osmar Ragland MD Primary Care Provider [phone] Reason for Visit * Reason Onset Date Comments Patient Requested Call 03/25/2024 Encounter Details Date Type Department Care Team (Late st Contact Info) Description 03/25/2024 Telephone [facility] - BUSINESS SUPPORT ADMINISTRATOR 10[address] [facility] [address] [place] [address] Thanh Green MD 6428 [facility] [address] [place] [address] Patient Requested Call Social History [...] Recorded Patient Health Questionnaire-2 Score 0 03/03/2024 [facility] [place] of Occupat ional Health - Occupational Stress [...] was the size of gold ball. CB [phone] documented in this encounter Plan of Treatment Upcoming Encounters Date Type Department Care Team (Late st Contact Info) Description 10/27/2024 10:30 AM JV BASEBALL COACH Appointment [facility] CL[facility] 365[address] [place] [address] Hussain Carias MD 365[address] [place] [phone] Britni Winston, PA-C 1201 [place], [place] [phone] 11/17/2024 9:00 AM JV BASEBALL COACH Office Visit [facility] - Ophthalmology [address] [place] [phone] Song Hobson MD [address] [place] [address] [place] [phone] documented as of this encounter Visit Diagnoses Not on filedocumented in this encounter Care Teams Manager Ed Relationship Specialty Start Date End Date Zaria-Nilam Johnson MD [address] [place] [phone] PCP - General Family Medicine 09/04/23 04/18/24 Osmar Ragland MD [address] [place] [phone] PCP - General Family Medicine 04/19/24 documented as of this encounter
--- OUTSIDE RECORDS SUMMARY | 2024-10-15 11:08 | XMS_ITS | Encounter Summary ---
Author Organization [facility] Address [facility]3 [facility] [place] [address] Care Team Providers Care Bone Tender Name Role Phone Nilam Mayers MD Primary Care Provider [phone]- [phone] Osmar Ragland MD Primary Care Provider [phone] Encounter Details Date Type Department Care Team (Late st Contact Info) Description 10/01/2023 Ophth Exam [facility] - Ophthalmology [address] [place] [address] Dano Jean MD 1201 [facility] [place] [place] [address] Social History Tobacco Use Types [...] care, and heating? Not very hard 09/06/2023 [facility] [place] of Occupat ional Health - Occupational Stress [...] Contact Info) Description 10/27/2024 10:30 AM HEALTH SAFETY MANAGER Appointment [facility] CL[facility] [address] [phone] Hussain Carias MD 365[address] [place] [address] Britni Winston, PA-C 1201 [place] [address] 11/17/2024 9:00 AM HEALTH SAFETY MANAGER Office Visit [facility] - Ophthalmology [address] [place] [address], [place] [address] Song Hobson MD [address] [place] [address] [place] [address] documented as of this encounter Visit Diagnoses Not on filedocumented in this encounter Additional Health Concerns Infection Onset Date Last Indicated Resolved Time COVID-19 Under Investigation 11/10/2023 11/10/2023 11/10/2023 6:57 PM HEALTH SAFETY MANAGER COVID-19 Under Investigation 12/19/2023 12/19/2023 12/19/2023 3:31 PM CDT documented as of this encounter Care Teams Bone Tender Relationship Specialty Start Date End Date Nilam Mayers MD [address] [place] [phone] PCP - General Family Medicine 09/04/23 04/18/24 Osmar Ragland MD [address] [place] [phone] PCP - General Family Medicine 04/19/24 documented as of this encounter
--- OUTSIDE RECORDS SUMMARY | 2024-10-15 11:08 | XMS_ITS | Referral Summary ---
Author Organization [facility] Address [address] [place] [phone] Care Team Providers Care Tripe Scraper Name Role Phone Song Hobson MD Unavailable [phone] Osmar Ragland MD Primary Care Provide r Encounters Date Type Department Care Team Description 10/01/2024 2:30 PM GILL TENDER Office Visit [facility] Sports Medicine and Primary Care at [address] [place] [address] Sivakumar Batista DO Acute medial meniscus tear of right knee, initial encounter (Primary Dx) 09/16/2024 12:40 PM GILL TENDER Imaging Exam [facility] Ophthalmology [address] [facility] [address] [place] [phone] 09/16/2024 12:20 PM GILL TENDER Imaging Exam [facility] Ophthalmology [address] [facility] Outpatient [address] [address] 09/16/2024 1:00 PM GILL TENDER Office Visit [facility] Ophthalmology [address], [address] [place] [address] Winston Ribeiro, OD Papilledema associated with increased intracranial pressure (Primary Dx); Nuclear sclerosis of both eyes 09/13/2024 Telephone [facility] [address] [place] [address] [address] [place] [address] Amy Schaffer MA 09/13/2024 Telephone [facility] [address] [place] [address] [address] [place] [phone] Rik Barahona NP 08/28/2024 Ancillary Procedure [facility] 08/11/2024 Telephone [facility] Ophthalmology 0515 [place] [address] Winston Ribeiro, OD FYI from Last 3 Months Allergies Active Allergy Reactions Criticality Noted Date Comments Vancomycin Itching Low 01/20/2024 Medications acetaZOLAMIDE (DIAMOX) 250 mg tablet Take 1 tablet (250 mg total) by mouth 2 (two) times a day 08/23/2024 Active famotidine (PEPCID) 20 mg tablet Take 1 tablet (20 mg total) by mouth 2 (two) times a day 10/17/2023 Active folic acid (FOLVITE) 1 mg tablet Take 1 tablet (1 mg total) by mouth daily 06/01/2024 Active valACYclovir (VALTREX) 500 mg tablet TAKE 1 (ONE) TABLET BY MOUTH 2 TIMES DAILY 06/20/2024 Active Active Problems Problem Noted Date Diagnosed Date Nuclear sclerosis of both eyes 09/16/2024 Assessment & Plan (09/16/2024 2:21 PM GILL TENDER): Trace changes noted and discussed, NVS. Monitor Anal or rectal pain 01/20/2024 Tachycardia 12/30/2023 Hypernatremia 11/05/2023 Hypophosphatemia 11/05/2023 Anemia 11/04/2023 Vaginal bleeding 10/14/2023 Benign intracranial hypertension 10/09/2023 Acute hypoxic respiratory failure 09/27/2023 Pulmonary edema 09/27/2023 Pancytopenia due to chemotherapy (CMS/HCC) 09/05 Tonsillitis 09/05/2023 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 Papilledema associated with increased intracrani al pressure Assessment & Plan (09/16/2024 2:23 PM GILL TENDER): History of papilledema with opening pressure of 31 on lumbar puncture 10/06/23. Pt with history of acute myeloid leukemia. Currently on Diamox 250mg BID PO. WITHOUT papilledema on exam today 09/16/24. NO complications from med or new symptoms. Reports vision doing well. There is excellent visual function today (BCVA, color and Wilcox visual field (HVF)). For now, will continue Diamox as Rx'd. Will schedule interval f/u with neuro-oph in 8-12 wk to discuss if tapering would be indicated at this point. Will call/RTC sooner w any new or worsening symptoms. Social History Tobacco Use Types Packs/Day Years Used Date Smoking Tobacco: Former Cigarettes 1 10/30/2010 - 12/14/2001 Smokeless Tobacco: Never Tobacco Cessation:Counseling Given: No AUDIT-C Answer Date Recorded Q1: How often do you have a drink containing alc ohol? 2-4 times a month 10/01/2024 Q2: How many drinks containi ng alcohol do you have on a typical day when you are drinking? 1 or 2 10/01/2024 Q3: How often do you have si x or more drinks on one occasion? Less than monthly 10/01/2024 Comments Unknown Sex and Gender Information Value Date Recorded Sex Assigned at Not on file Legal Sex Female 12:15 PM CDT Gender Identity Not on file Sexual Orientation Not on file Last Filed Vital Signs Vital Sign Reading Time Taken Comments Blood Pressure 136/81 10/01/2024 2:34 PM GILL TENDER Pulse 98 10/01/2024 2:34 PM GILL TENDER Temperature - - Respiratory Rate 18 10/01/2024 2:34 PM GILL TENDER Oxygen Saturation - - Inhaled Oxygen Concentration - - Weight 120.6 kg (265 lb 14.4 oz) 10/01/2024 2:34 PM GILL TENDER Height 157.5 cm (5' 2 ) 10/01/2024 2:34 PM GILL TENDER Body Mass Index 48.63 10/01/2024 2:34 PM GILL TENDER Plan of Treatment Not on file Procedures Procedure Name Priority Date/Time Associated Diagnosis Comments FUNDUS PHOTOS/FAF - OU - BOTH EYES Routine 09/16/2024 11:33 AM GILL TENDER Papilledema associated with increased intracranial pressure OCT, OPTIC NERVE - OU - BOTH EYES Routine 09/16/2024 11:33 AM GILL TENDER Papilledema associated with increased intracranial pressure OCT, RETINA - OU - BOTH EYES Routine 09/16/2024 11:33 AM GILL TENDER Papilledema associated with increased intracranial pressure WILCOX VISUAL FIELD - OU - BOTH EYES Routine 09/16/2024 11:33 AM GILL TENDER Papilledema associated with increased intracranial pressure MRI TRANSFER OF OUTSIDE FILMS Routine 08/28/2024 12:00 AM GILL TENDER from Last 3 Months Results * Fundus Photos/FAF - OU - Both Eyes (09/16/2024 11:33 AM GILL TENDER) Anatomical Region Laterality Modality Head Fundus Photograp hy Narrative 09/16/2024 12:02 PM GILL TENDER Right Eye Quality was good. Progression has no prior data. Disc findings include normal observations. Macula findings include normal observations. Vessel findings include normal observations. Periphery findings include normal observations. Left Eye Quality was good. Progression has no prior data. Disc findings include normal observations. Macula findings include normal observations. Vessel findings include normal observations. Periphery findings include normal observations. Winston Ribeiro OD OPHTH PHOTOGRAPHY Final Result * OCT, Optic Nerve - OU - Both Eyes (09/16/2024 11:33 AM GILL TENDER) Pathologist [facility] RNFL OS 89 micrometers CONTINUUM RNFL OD 94 micrometers CONTINUUM Anatomical Region Laterality Modality Head Other Narrative 09/16/2024 12:01 PM GILL TENDER Right Eye Reliability was good. Temporal thickness was normal. Superior thickness was normal. Nasal thickness was normal. Inferior thickness was normal. Average RNFL thickness 94 micrometers. Left Eye Reliability was good. Temporal thickness was normal. Superior thickness was normal. Nasal thickness was normal. Inferior thickness was normal. Average RNFL thickness 89 micrometers. Winston Ribeiro OD OPHTH TOMOGRAPHY Final Result * OCT, Retina - OU - Both Eyes (09/16/2024 11:33 AM GILL TENDER) Central Macular Thickness OS 239 mircometers CONTINUUM Central Macular Thickness OD 241 micrometers CONTINUUM Anatomical Region Laterality Modality Head Other Narrative 09/16/2024 12:02 PM GILL TENDER Right Eye Quality was good. Scan locations included subfoveal, juxtafoveal. Progression has no prior data. Findings include normal foveal contour. Macular thickness was 241 micrometers. Left Eye Quality was good. Scan locations included subfoveal, juxtafoveal. Progression has no prior data. Findings include normal foveal contour. Macular thickness was 239 mircometers. us Winston Ribeiro OD OPHTH TOMOGRAPHY Final Result * Wilcox Visual Field - OU - Both Eyes (09/16/2024 11:33 AM GILL TENDER) Pattern Deviation OS 1.25 dB CONTINUUM Pattern Deviation OD 1.30 dB CONTINUUM Mean Deviation OS -0.06 dB CONTINUUM Mean Deviation OD 0.07 dB CONTINUUM Anatomical Region Laterality Modality Head Other Narrative 09/16/2024 12:01 PM GILL TENDER Right Eye Fixation was good. Cooperation was good. Reliability was good. Progression has no prior data. Foveal threshold was normal. Findings include normal observations. Mean Deviation was 0.07 dB. Pattern Deviation was 1.30 dB. Left Eye Fixation was borderline. Cooperation was borderline. Reliability was borderline. Progression has no prior data. Foveal threshold was normal. Findings include normal observations. Mean Deviation was -0.06 dB. Pattern Deviation was 1.25 dB. Notes Tech Note: Steady fixation OS (see blind spot plot) ASLima, COT us Winston Ribeiro OD OPHTH VISUAL FIELD Final Resul t * MRI Outside Reference (08/28/2024 12:00 AM GILL TENDER) Narrative [facility] - 10/01/2024 2:34 PM GILL TENDER This order has been auto-finalized and does not contain a result. us Not In File Miscellaneous IMG MRI PROCEDURES Fin al Result [facility] from Last 3 Months Insurance [facility] Care Teams Tripe Scraper Relationship Specialty Start Date End Date Osmar Ragland MD [address] [place] [address] PCP - General Family Medicine 09/13/24 Song Hobson MD [address] [facility] [place] [phone] Referring Physician Ophthalmology 08/26/24
--- OUTSIDE RECORDS SUMMARY | 2024-10-15 11:08 | XMS_ITS | Encounter Summary ---
Author Organization [facility] Address [facility]3 [facility] [place] [address] Care Team Providers Care Set Decorator Name Role Phone Nilam Mayers MD Primary Care Provider [phone]- [phone] Osmar Ragland MD Primary Care Provider [phone] Encounter Details Date Type Department Care Team (Late st Contact Info) Description 10/03/2023 Ophth Exam [facility] - Ophthalmology [address] [place] [address] Dano Jean MD 1201 [facility] [place] [address] Social History Tobacco Use Types [...] care, and heating? Not very hard 09/06/2023 [facility] [place] of Occupat ional Health - Occupational Stress [...] st Contact Info) Description 10/27/2024 10:30 AM FIRE CHIEF'S AIDE Appointment [facility] B[facility] CLINIC [address] [phone] Hussain Carias MD [address] [place] [address] Britni Winston, PA-C 12[address] [place] [address] 11/17/2024 9:00 AM FIRE CHIEF'S AIDE Office Visit [facility] - Ophthalmology [address] [place] [address], [place] [address] Song Hobson MD [address] [place] [address] [place] [address] documented as of this encounter Visit Diagnoses Not on filedocumented in this encounter Additional Health Concerns Infection Onset Date Last Indicated Resolved Time COVID-19 Under Investigation 11/10/2023 11/10/2023 11/10/2023 6:57 PM FIRE CHIEF'S AIDE COVID-19 Under Investigation 12/19/2023 12/19/2023 12/19/2023 3:31 PM CDT documented as of this encounter Care Teams Set Decorator Relationship Specialty Start Date End Date Nilam Mayers MD [address] [place] [phone] PCP - General Family Medicine 09/04/23 04/18/24 Osmar Ragland MD [address] [place] [phone] PCP - General Family Medicine 04/19/24 documented as of this encounter
--- OUTSIDE RECORDS SUMMARY | 2024-10-15 11:08 | XMS_ITS | Encounter Summary ---
Author Organization [facility] Address [facility] [place] [place] [address] Care Team Providers Care Senior Python Developer Name Role Phone Nilam Mayers MD Primary Care Provider [phone]- [phone] Osmar Ragland MD Primary Care Provider [phone] Encounter Details Date Type Department Care Team (Late st Contact Info) Description 09/29/2023 Ophth Exam [facility] - Ophthalmology 12[address] [facility], [place] [phone] Jerel Beach MD 1201 [facility] [place] [place] [address] Social History Tobacco Use Types Packs/Day Years [...] care, and heating? Not very hard 09/06/2023 [facility] [place] of Occupat ional Health - Occupational Stress [...] Contact Info) Description 10/27/2024 10:30 AM CERTIFIED REHABILITATION COUNSELOR Appointment [facility] BMT CLINIC [address] [place] [address] Hussain Carias MD [address] [place] [phone] Britni Winston PABaronC [address] [place], [place] [phone] 11/17/2024 9:00 AM CERTIFIED REHABILITATION COUNSELOR Office Visit [facility] - Ophthalmology [address] [place] [phone] Song Hobson MD [address] [place] [address] [place] [address] documented as of this encounter Visit Diagnoses Not on filedocumented in this encounter Additional Health Concerns Infection Onset Date Last Indicated Resolved Time COVID-19 Under Investigation 11/10/2023 11/10/2023 11/10/2023 6:57 PM CERTIFIED REHABILITATION COUNSELOR COVID-19 Under Investigation 12/19/2023 12/19/2023 12/19/2023 3:31 PM CDT documented as of this encounter Care Teams Senior Python Developer Relationship Specialty Start Date End Date Nilam Mayers MD [address] [place] [phone] PCP - General Family Medicine 09/04/23 04/18/24 Osmar Ragland MD [address] [place] [phone] PCP - General Family Medicine 04/19/24 documented as of this encounter
--- OUTSIDE RECORDS SUMMARY | 2024-10-15 11:08 | XMS_ITS | Clinical Summary ---
Author Organization [facility] Address [address] [place] [phone] Care Team Providers Care Equipment Processor Name Role Phone Song Hobson MD Unavailable [phone] Osmar Ragland MD Primary Care Provide r Allergies Active Allergy Reactions Criticality Noted Date [...] 09/16/2024 Assessment & Plan (09/16/2024 2:21 PM WOMEN'S GARMENT FITTER): Trace changes noted and discussed, NVS. 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 Encounters Date Type Department Care Team Description 10/01/2024 2:30 PM WOMEN'S GARMENT FITTER Office Visit [facility] Sports Medicine and Primary Care at [address] [place] [address] Sivakumar Batista DO Acute medial meniscus tear of right knee, initial encounter (Primary Dx) 09/16/2024 1:00 PM WOMEN'S GARMENT FITTER Office Visit [facility] Ophthalmology [facility] [address], [address] [facility] [place] [address] Winston Ribeiro, OD Papilledema associated with increased intracranial pressure (Primary Dx); Nuclear sclerosis of both eyes 09/16/2024 12:40 PM WOMEN'S GARMENT FITTER Imaging Exam [facility] Ophthalmology [address] [place] [address] [address] [place] [phone] 09/16/2024 12:20 PM WOMEN'S GARMENT FITTER Imaging Exam [facility] Ophthalmology [address] [place] [address] Outpatient Health [address] [place] [phone] 09/13/2024 Telephone [facility] Orthopedics and Sports Medicine [address] [place] [address] [place] [phone] Amy Schaffer MA 09/13/2024 Telephone [facility] Orthopedics and Sports Medicine [address] [facility] [address] [place] [address] Rik Barahona NP 08/28/2024 Ancillary Procedure [facility] 08/11/2024 Telephone [facility] Ophthalmology [address] [place] [address] Winston Ribeiro, OD FYI from Last 3 Months Surgical History Surgery Date Site/Laterality Comments FL UPPER GI AIR CONTRAST W KUB 10/06/2023 Left FL UPPER GI AIR CONTRAST W KUB 10/01/2023 Left Medical History Medical History Date Comments Papilledema associated with increased intracrani al pressure Family History Medical History Relation Name Comments No Known Problems Father No Known Problems Mother No Known Problems Sister Relation Name Status Comments Father Alive Mother Alive Sister Alive Social History Tobacco Use Types Packs/Day Years [...] on file Sexual Orientation Not on file Obstetrics History Last Filed Vital Signs Vital Sign Reading Time Taken Comments Blood Pressure 136/81 10/01/2024 2:34 PM WOMEN'S GARMENT FITTER Pulse 98 10/01/2024 2:34 PM WOMEN'S GARMENT FITTER Temperature - - Respiratory Rate 18 10/01/2024 2:34 PM WOMEN'S GARMENT FITTER Oxygen Saturation - - Inhaled Oxygen Concentration - - Weight 120.6 kg (265 lb 14.4 oz) 2024 2:34 PM WOMEN'S GARMENT FITTER Height 157.5 cm (5' 2 ) 10/01/2024 2:34 PM WOMEN'S GARMENT FITTER Body Mass Index 48.63 10/01/2024 2:34 PM WOMEN'S GARMENT FITTER Plan of Treatment Health Maintenance Due Date Last Done Comments Cervical Cancer Screening 1986 Depression Screening 1986 Hepatitis C Screening 1986 Pneumococcal vaccine <65 (1 of 2 - PCV) 1992 DTaP/Tdap/Td Vaccine (1 - Tdap) 1997 Varicella Vaccines (1 of 2 - 13+ 2-dose series) 1999 Hepatitis B Screening 2004 Regular Well Visit/Exam 18-64 2004 Zoster Vaccine (1 of 2) 2005 Covid-19 Vaccine (2 - Pfizer risk series) 05/22/2021 05/01/2021 Influenza Vaccine (#1) 2024 07/18/2020 HPV Vaccines Aged Out No longer eligi ble based on patient's age to complete this topic Procedures Procedure Name Priority Date/Time Associated Diagnosis Comments FUNDUS PHOTOS/FAF - OU - BOTH EYES Routine 09/16/2024 11:33 AM WOMEN'S GARMENT FITTER Papilledema associated with increased intracranial pressure OCT, OPTIC NERVE - OU - BOTH EYES Routine 09/16/2024 11:33 AM WOMEN'S GARMENT FITTER Papilledema associated with increased intracranial pressure OCT, RETINA - OU - BOTH EYES Routine 09/16/2024 11:33 AM WOMEN'S GARMENT FITTER Papilledema associated with increased intracranial pressure WILCOX VISUAL FIELD - OU - BOTH EYES Routine 09/16/2024 11:33 AM WOMEN'S GARMENT FITTER Papilledema associated with increased intracranial pressure MRI TRANSFER OF OUTSIDE FILMS Routine 08/28/2024 12:00 AM WOMEN'S GARMENT FITTER from Last 3 Months Results * Fundus Photos/FAF - OU - Both Eyes (09/16/2024 11:33 AM WOMEN'S GARMENT FITTER) Anatomical Region Laterality Modality Head Fundus Photograp hy Narrative 09/16/2024 12:02 PM WOMEN'S GARMENT FITTER Right Eye Quality was good. Progression has [...] OU - Both Eyes (09/16/2024 11:33 AM WOMEN'S GARMENT FITTER) Pathologist [facility] RNFL OS 89 micrometers CONTINUUM RNFL OD 94 micrometers CONTINUUM Anatomical Region Laterality Modality Head Other Narrative 09/16/2024 12:01 PM WOMEN'S GARMENT FITTER Right Eye Reliability was good. Temporal thickness [...] OU - Both Eyes (09/16/2024 11:33 AM WOMEN'S GARMENT FITTER) [facility] Central Macular Thickness OS 239 mircometers CONTINUUM Central Macular Thickness OD 241 micrometers CONTINUUM Anatomical Region Laterality Modality Head Other Narrative 09/16/2024 12:02 PM WOMEN'S GARMENT FITTER Right Eye Quality was good. Scan locations included subfoveal, juxtafoveal. Progression has no prior data. Findings include normal foveal contour. Macular thickness was 241 micrometers. Left Eye Quality was good. Scan locations included subfoveal, juxtafoveal. Progression has no prior data. Findings include normal foveal contour. Macular thickness was 239 mircometers. Winston Ribeiro OD OPHTH TOMOGRAPHY Final Result * Wilcox Visual Field - OU - Both Eyes (09/16/2024 11:33 AM WOMEN'S GARMENT FITTER) [facility] Pattern Deviation OS 1.25 dB CONTINUUM Pattern Deviation OD 1.30 dB CONTINUUM Mean Deviation OS -0.06 dB CONTINUUM Mean Deviation OD 0.07 dB CONTINUUM Anatomical Region Laterality Modality Head Other Narrative 09/16/2024 12:01 PM WOMEN'S GARMENT FITTER Right Eye Fixation was good. Cooperation was [...] * MRI Outside Reference (08/28/2024 12:00 AM WOMEN'S GARMENT FITTER) Narrative [facility] - 10/01/2024 2:34 PM WOMEN'S GARMENT FITTER This order has been auto-finalized and does not contain a result. us Not In File Miscellaneous IMG MRI PROCEDURES Fin al Result [facility] from Last 3 Months Insurance [facility] Care Teams Equipment Processor Relationship Specialty Start Date End Date Osmar Ragland MD [address] [place] [address] PCP - General Family Medicine 09/13/24 Song Hobson MD [address] [facility] DEPT OF O[place] [address] Referring Physician Ophthalmology 08/26/24
--- OUTSIDE RECORDS SUMMARY | 2024-10-15 11:08 | XMS_ITS | Encounter Summary ---
Author Organization [facility] Address [facility] [place] [address] Care Team Providers Care Bird Raiser Name Role Phone Nilam Mayers MD Primary Care Provider [phone]- [phone] Osmar Ragland MD Primary Care Provider [phone] Encounter Details Date Type Department Care Team (Late st Contact Info) Description 09/02/2023 Lab Requisition [facility] - Pathology Lab [address] [place] [address] Surjit Bassett MD [address] [facility] [address] [place] [address] Other pancytopenia (HCC) Social History Tobacco [...] care, and heating? Not very hard 09/06/2023 [facility] of Occupat ional Health - Occupational [...] st Contact Info) Description 10/27/2024 10:30 AM FACULTY DEAN Appointment [facility] [address] [place] [address] Hussain Carias MD [address] [place] [phone] Britni Winston, PA-C [address] [place] [address] 11/17/2024 9:00 AM FACULTY DEAN Office Visit [facility] - Ophthalmology [address] [place] [phone] Song Hobson MD [address] [facility] [address] [place] [phone] documented as of this encounter Procedures Procedure Name Priority Date/Time Associated Diagnosis Comments FLOW CYTOMETRY BONE MARROW Routine 09/02/2023 10:00 AM FACULTY DEAN Other pancytopenia (CMS-HCC) documented in this encounter Results * FLOW CYTOMETRY BONE MARROW (09/02/2023 10:00 AM FACULTY DEAN) Case Report Flow Cytometry ?Case: [id number] ? Authorizing Provider: ??Luis Bassett MD ??Collected: ? 09/02/2023 10:00 AM ? Ordering Location: ? [facility] ? Received: ?09/02/2023 01:17 PM ? Pathologist: ? Yamil Coles MD ? Specimen: ?Bone Marrow ? 09/02/2023 5:06 PM FACULTY DEAN [facility] Final Diagnosis Bone marrow, flow cytometric immunophenotypic analysis: - Markedly increased myeloblasts identified (By CD117 and MPO, approximately 78% of all events analyzed are blasts), consistent with acute myeloid leukemia. - See interpretation. 09/02/2023 5:06 PM [facility] PATHOLOGY LAB Flow Cytometry Interpretation Viability: 98% [...] CD11b, CD14, CD19, CD20, cyCD22, CD56, CD64, yfKH48g, CD30. By CD117 and MPO, approximately 78% of all events analyzed are blasts. Monocytes: 0% Granulocytes: 4%. Few and unremarkable, based on the markers performed A bone marrow aspirate smear prepared from the flow cytometry specimen is reviewed for quality control chemist purposes. The preliminary findings were relayed to [facility] at [phone] in the afternoon of 09/02/[address] Coles. 09/02/2023 5:06 PM [facility] PATHOLOGY LAB Flow Cytometry Results Differential Result Comment Flow Cell Count /uL 36,400 Total Viability % 98.0 Lymphocytes % 17 Dim CD45 Region % 78 Monocytes % 0 Granulocytes % 4 09/02/2023 5:06 PM [facility] PATHOLOGY LAB Reason for test Other pancytopenia ([facility]-HCC) 284.19 09/02/2023 5:06 PM [facility] PATHOLOGY [facility] Client Specimen ID # [id number] 09/02/2023 5:06 PM [facility] PATH[facility]Y [facility] Number of markers 24 were performed. A-2 Flow CD10 A-3 Flow CD13 A-5 Flow CD20 A-16 Flow CD2 A-18 Flow CD14 A-21 Flow CD117 A-22 Flow CD11b A-23 Flow CD11c A-1 Flow CD5 A-4 Flow CD19 A-6 Flow CD33 A-7 Flow CD34 A-8 Flow CD45 A-14 cyCD22 A-15 mcMN26n A-17 Flow CD7 A-19 Flow CD56 A-20 Flow CD64 A-9 Fruitridge Pocket+CD19+ A-10 Lambda+CD19+ A-11 Flow MPO A-12 Flow TdT A-13 cyCD3 A-24 Flow HLA-DR 09/02/2023 5:06 PM [facility] PATHOLOGY LAB Pathologist Location at [facility] 09/02/2023 5:06 PM [facility] PATHOLOGY LAB Disclaimer Test performed at [facility], [address] [place], [place], [address]. *The established laboratory minimum viability is 70%. [...] high complexity clinical testing. 09/02/2023 5:06 PM [facility] PATHOLOGY LAB Embedded Images 5:06 PM [facility] PATHOLOGY LAB Pathology/Cytolo gy BONE MARROW SPECIMEN / Unknown 09/02/2023 10:00 AM FACULTY DEAN 09/02/2023 1:17 PM FACULTY DEAN Surjit Bassett MD LAB - PATHO LOGY/CYTOLOGY ORDERABLES [facility] PATHOLOGY LAB [address] [place] [address]. [address] [phone] documented in this encounter Visit Diagnoses Diagnosis Other pancytopenia (HCC) Other pancytopenia documented in this encounter Additional Health Concerns Infection Onset Date Last Indicated Resolved Time CDIFF Under Investigation 09/14/2023 09/15/2023 1:20 PM FACULTY DEAN COVID-19 Under Investigation 09/22/2023 09/22/2023 09/23/2023 12:28 AM FACULTY DEAN COVID-19 Under Investigation 11/10/2023 11/10/2023 11/10/2023 6:57 PM FACULTY DEAN COVID-19 Under Investigation 12/19/2023 12/19/202312/19/2023 3:31 PM CDT documented as of this encounter Care Teams Bird Raiser Relationship Specialty Start Date End Date Nilam Mayers MD [address] [place] [phone] PCP - General Family Medicine 09/04/23 04/18/24 Osmar Ragland MD [address] [place] [address] PCP - General Family Medicine 04/19/24 documented as of this encounter
--- OUTSIDE RECORDS SUMMARY | 2024-10-15 11:08 | XMS_ITS | Encounter Summary ---
Author Organization [facility] Address [facility] [place] [address] Care Team Providers Care Housekeeping Manager Name Role Phone Nilam Mayers MD Primary Care Provider +- [phone] Osmar Ragland MD Primary Care Provider [phone] Encounter Details Date Type Department Care Team (Late st Contact Info) Description 09/03/2023 Lab Requisition [facility] - Pathology Lab [address] [place] [address] Surjit Bassett MD [address] [facility] [address] [place] [address] Illness, unspecified Social History Tobacco Use [...] care, and heating? Not very hard 09/06/2023 [facility] of Occupat ional Health - Occupational Stress [...] st Contact Info) Description 10/27/2024 10:30 AM FEEDER OPERATOR Appointment [facility] B[facility] CL[facility]IC [address] [place] [address] Hussain Carias MD [address] [place] [phone] Britni Winston, PA-C [address] [place] [address] 11/17/2024 9:00 AM FEEDER OPERATOR Office Visit [facility] - Ophthalmology [address] [place] [phone] Song Hobson MD [address] [place] [address] [place] [address] documented as of this encounter Procedures Procedure Name Priority Date/Time Associated Diagnosis Comments BONE MARROW BIOPSY (STL) Routine 09/02/2023 9:29 AM FEEDER OPERATOR Illness, unspecified documented in this encounter Results * BONE MARROW BIOPSY (STL) (09/02/2023 9:29 AM FEEDER OPERATOR) Case Report Bone Marrow Patholog y Report ?Case: [id number] ? Authorizing Provider: ??Luis Bassett MD ??Collected: ? 09/02/2023 09:29 AM ? Ordering Location: ? [facility] Pathology Lab ? Received: ?09/03/2023 04:13 PM ? Pathologist: ? Yamil Coles MD ? Specimens: ?? A) - Bone Marrow Clot ? B) - Bone Marrow Core ? 09/04/2023 6:17 PM [facility] PATHOLOGY LAB Final Diagnosis Bone marrow, aspirate, clot section, and core biopsy: - Acute myeloid leukemia, NOS - See description. Peripheral blood smear: - Pancytopenia, marked. - Circulating blasts 09/04/2023 6:17 PM [facility] PATHOLOGY LAB Comment Correlation with clinical features, available cytogenetics, FISH studies, and molecular studies recommended. 09/04/2023 6:17 PM [facility] PATHOLOGY LAB Peripheral Smear Description RBC: Normocytic and normochromic anemia. No circulating nucleated RBCs WBC: Markedly decreased in number, scattered circulating blasts seen (24/100WBCs) Platelets: Rarely seen 09/04/2023 6:17 PM [facility] PATHOLOGY LAB Bone Marrow Aspirate Specimen quality: [...] No ring sideroblasts seen 09/04/2023 6:17 PM [facility] PATHOLOGY LAB Bone Marrow Core [...] No ring sideroblasts seen 09/04/2023 6:17 PM [facility] PATHOLOGY LAB Flow Cytometry Summary Bone marrow, flow cytometric immunophenotypic analysis: - Markedly increased myeloblasts identified (By CD117 and MPO, approximately 78% of all events analyzed are blasts), consistent with acute myeloid leukemia. 09/04/2023 6:17 PM [facility] PATHOLOGY LAB Clinical History 09/04/2023 6:17 PM [facility] PATHOLOGY LAB Materials Received Received are 20 slide(s) and 3 blocks labeled [id number] along with a copy of the outside pathology report. [place] [address] . All original materials are returned to the referring institution, along with a copy of our final report. 09/04/2023 6:17 PM [facility] Pathologist Location at [facility] 09/04/2023 6:17 PM [facility] PATHOLOGY LAB Disclaimer The performance characteristics of all immunohistochemical and indirect immunofluorescence stains (if any) cited in this report were determined by the Histopathology [facility] of [facility]. Some of these tests were developed by [...] the attending (teaching) pathologist. 09/04/2023 6:17 PM [facility] PATHOLOGY LAB Embedded Images 09/04/2023 6:17 PM [facility] PATHOLOG[facility] LAB Pathology/Cytology BONE MARROW SPECIMEN / Unknown 09/02/2023 9:29 AM FEEDER OPERATOR 09/03/2023 4:13 PM FEEDER OPERATOR Miscellaneous samples (specimen) BONE MARROW SPECIMEN / Unknown 09/02/2023 9:29 AM FEEDER OPERATOR 09/03/2023 4:13 PM FEEDER OPERATOR Surjit Bassett MD LAB - PATHO LOGY/CYTOLOGY ORDERABLES [facility] PATHOLOGY LAB [address] [place] [address] documented in this encounter Visit Diagnoses Diagnosis Illness, unspecified documented in this encounter Additional Health Concerns Infection Onset Date Last Indicated Resolved Time CDIFF Under Investigation 09/14/2023 09/15/2023 1:20 PM FEEDER OPERATOR COVID-19 Under Investigation 09/22/2023 09/22/2023 09/23/2023 12:28 AM FEEDER OPERATOR COVID-19 Under Investigation 11/10/2023 11/10/2023 11/10/2023 6:57 PM FEEDER OPERATOR COVID-19 Under Investigation 12/19/2023 12/19/2023 12/19/2023 3:31 PM CDT documented as of this encounter Care Teams Housekeeping Manager Relationship Specialty Start Date End Date Nilam Mayesr MD [address] [place] [phone] PCP - General Family Medicine 09/04/23 04/18/24 Osmar Ragland MD [address] [place] [phone] PCP - General Family Medicine 04/19/24 documented as of this encounter
--- OUTSIDE RECORDS SUMMARY | 2024-10-15 11:08 | XMS_ITS | Referral Summary ---
Author Organization [facility] Address [facility]3 [facility] [place] [address] Care Team Providers Care Storage Worker Name Role Phone Osmar Ragland MD Primary Care Provider [phone]- [phone] Source Comments [facility],non-owned Affiliates and Associated Physician Practices is amultiple site organization consisting of ambulatory clinics and hospital sitesin [place], [place], [place] and [place]. This disclosure is being madepursuant to the Care Everywhere program and may not contain all information available regarding this patient. 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 Alwaysverify current medications with the patient. Medication Sig Dispensed Refills Start Date End Date Status Carboxymethylcellul ose Sodium (ARTIFICIAL TEARS OP) Active famotidine (Pepcid) 20 MG tabletIndications:T onsillitis Take 1 (one) tablet by mouth 2 times daily 60 tablet 1 10/17/2023 Active Additional Information Patient taking differently:20 mg OralDAILY, Reported on 08/23/2024 multivitamin daily tablet Take 1 (one) tablet by mouth daily with food Womans multivitamin Active folic acid (Folvite) 1 MG tablet Take 1 (one) tablet by mouth once daily 90 tablet 06/01/2024 Active acetaZOLAMIDE (Diamox) 250 MG tabletIndications:I IH (idiopathic intracranial hypertension) Take 1 (one) tablet by mouth 2 times daily 60 tablet 3 08/23/2024 12/21/2024 Active Active Problems Problem Noted Date Diagnosed [...] Date Febrile neutropenia 09/27/2023 10/11/19 24 Immunizations Name Administration Dates Next Due INFLUENZA [...] Patient Health Questionnaire-2 Score 0 03/03/2024 [facility] [place] of Occupat ional Health - Occupational Stress [...] in a long term (including now)? No 01/19/2024 Sex and Gender Information Value Date Recorded Sex Assigned at Not on file Gender Identity Female 02/13/2024 1:12 PM CDT Sexual Orientation Not on file Last Filed Vital Signs Vital Sign Reading Time Taken Comments Blood Pressure 136/93 08/23/2024 9:57 AM ELECTROFORMER Pulse 90 08/23/2024 9:57 AM ELECTROFORMER Temperature 36.7 ??C (98.1 ??F) 08/23/2024 9:57 AM CS T Respiratory Rate 18 08/23/2024 9:57 AM ELECTROFORMER Oxygen Saturation 97% 08/23/2024 9:57 AM ELECTROFORMER Inhaled Oxygen Concentration 21% 09/16/2023 4 :17 AM ELECTROFORMER Weight 117.3 kg (258 lb 11.2 oz) 08/23/2024 9:57 AM ELECTROFORMER Height 157.5 cm (5' 2 ) 08/23/2024 9:57 AM ELECTROFORMER Body Mass Index 47.32 08/23/2024 9:57 AM ELECTROFORMER Functional Status Functional Status Response Date of [...] st Contact Info) Description 10/27/2024 10:30 AM ELECTROFORMER Appointment [facility] [address] [place] [address] Hussain Carias MD [address] [place] [phone] Britni Winston, PA-C [address] [place] [address] 11/17/2024 9:00 AM ELECTROFORMER Office Visit [facility] - Ophthalmology [address] [place] [address] [phone] Song Hobson MD [address] [place] [address] [place] [address] Medical Devices Implanted Type Area Waist Cutter Device Identifier Shelf Expiration Date Model / Serial / Lot Tray Cath 12fr 19cm Hkmn Trifusion 3 Lum Implanted:Qty: 1 on 09/05/2023 at [facility] Right: Chest [employer] 11/12/2024 [id number] / / [id number] Description:Dr. Balbina neil nawaf Procedures Procedure Name Priority Date/Time Associated Diagnosis Comments NPM1 MUTATION DETECTION PCR Routine 08/23/2024 9:40 AM ELECTROFORMER Acute myeloid leukemia in remission (HCC) PHOSPHORUS BLOOD Routine 08/23/2024 9:40 AM ELECTROFORMER Acute myeloid leukemia in remission (HCC) MAGNESIUM BLOOD Routine 08/23/2024 9:40 AM ELECTROFORMER Acute myeloid leukemia in remission (HCC) COMPREHENSIVE METABOLIC PANEL Routine 08/23/2024 9:40 AM ELECTROFORMER Acute myeloid leukemia in remission (HCC) CBC W AUTO DIFFERENTIAL Routine 08/23/2024 9:40 AM ELECTROFORMER Acute myeloid leukemia in remission (HCC) HEPATITIS C AB SCREEN RFLX NAAT QUANT Routine 09/04/2023 5:20 AM ELECTROFORMER HIV-1 HIV-2 ANTIBODY + HIV P24 AG PANEL Routine 09/04/2023 5:20 AM ELECTROFORMER from Last 3 Months or Most Recently Relevant to Health Maintenance Results * NPM1 MUTATION DETECTION PCR (08/23/2024 9:40 AM ELECTROFORMER) [facility] NPM1 Source Whole Blood 08/27/2024 1:35 PM ELECTROFORMER [facility] ([facility]) NPM1 Result Not Detected 08/27/2024 1:35 PM ELECTROFORMER [facility] ([facility]) Comment: A NPM1 (type A, B, [...] developed and its performance characteristics determined by [facility]. It has not been cleared or approved by the US Food and Drug Administration. This test was performed in a CLIA certified laboratory and is intended for clinical purposes. NPM1 Ratio 0.0000 08/27/2024 1:35 PM [facility] ([facility]) Comment: Performed By: [facility] [employer] [address] [place] [address] Mechanic Foreman: Ebenezer Shipman MD, PhD CLIA Number: [id number] BLOOD SPECIMEN / Unknown 08/23/2024 9:40 AM ELECTROFORMER 08/23/2024 9:56 AM ELECTROFORMER Hussain Carias MD LAB - CHEMISTRY ORDE [facility]) [address] [place] [address], [facility] * (ABNORMAL) CBC WITH DIFFERENTIAL (08/23/2024 9:40 AM [facility]) WBC 5.2 4.0 - 10.7 x10E9/L 08/23/2024 10:03 AM [facility] RBC Count 4.47 3.90 - 5.20 x10E12/L 08/23/2024 10:03 AM [facility] Hemoglobin 14.1 11.9 - 15.8 g/dL 08/23/2024 10:03 AM [facility] Hematocrit 40.6 34.8 - 46.1 % 08/23/2024 10:03 AM [facility] MCV 90.8 80.0 - 98.0 fL 08/23/2024 10:03 AM [facility] MCH 31.5 26.7 - 33.6 pg 08/23/2024 10:03 AM [facility] MCHC 34.7 31.7 - 36.3 g/dL 08/23/2024 10:03 AM [facility] RDW-CV 12.6 11.3 - 14.8 % 08/23/2024 10:03 AM [facility] Platelet Count 153 150 - 420 x10E9/L 08/23/2024 10:03 AM [facility] MPV 9.1 7.8 - 11.4 fL 08/23/2024 10:03 AM [facility] Preliminary Absolute Neutrophil 3.81 1.60 - 7.50 x10E9/L 08/23/2024 10:03 AM [facility] Neutrophil % 72.7 41.0 - 74.0 % 08/23/2024 10:03 AM [facility] Lymphocyte % 17.0 17.0 - 47.0 % 08/23/2024 10:03 AM [facility] Monocyte % 8.4 3.0 - 11.0 % 08/23/2024 10:03 AM [facility] Eosinophil % 1.3 0.0 - 7.0 % 08/23/2024 10:03 AM [facility] Basophil % 0.2 0.0 - 1.6 % 08/23/2024 10:03 AM [facility] Immature Granulocytes % 0.4 0.0 - 1.0 % 08/23/2024 10:03 AM [facility] Neutrophil Absolute 3.81 1.60 - 7.50 x10E9/L 08/23/2024 10:03 AM [facility] Lymphocyte Absolute 0.89(L) 1.00 - 4.40 x10E9/L 08/23/2024 10:03 AM [facility] Monocyte Absolute 0.44 0.15 - 1.00 x10E9/L 08/23/2024 10:03 AM [facility] Eosinophil Absolute 0.07 0.00 - 0.60 x10E9/L 08/23/2024 10:03 AM [facility] Basophil Absolute 0.01 0.00 - 0.13 x10E9/L 08/23/2024 10:03 AM [facility] Blood BLOOD SPECIMEN / Unknown Venipuncture / Unknown 08/23/2024 9:40 AM ELECTROFORMER 08/23/2024 9:56 AM [facility] Hussain Carias MD LAB - HEMATOLOGY ORD ERABLES [address] [address], [facility] [phone] * (ABNORMAL) COMPREHENSIVE METABOLIC PANEL (08/23/2024 9:40 AM [facility]) [facility] BUN 9 7 - 26 mg/dL 08/23/2024 10:23 AM [facility] Creatinine 0.63 0.56 - 0.96 mg/dL 08/23/2024 10:23 AM [facility] Sodium 141 136 - 145 mmol/L 08/23/2024 10:23 AM [facility] Potassium 3.5 3.5 - 4.5 mmol/L 08/23/2024 10:23 AM [facility] Chloride 112(H) 98 - 107 mmol/L 08/23/2024 10:23 AM [facility] CO2 19(L) 22 - 29 mmol/L 08/23/2024 10:23 AM [facility] Glucose 155(H) 70 - 99 mg/dL 08/23/2024 10:23 AM [facility] Calcium 9.3 8.4 - 10.2 mg/dL 08/23/2024 10:23 AM [facility] Protein Total 7.0 6.0 - 8.3 g/dL 08/23/2024 10:23 AM [facility] Albumin 3.7 3.4 - 5.0 g/dL 08/23/2024 10:23 AM [facility] Bilirubin Total 0.4 0.2 - 1.2 mg/dL 08/23/2024 10:23 AM [facility] Alkaline Phosphatase 106 40 - 150 U/L 08/23/2024 10:23 AM [facility] ALT 18 5 - 55 U/L 08/23/2024 10:23 AM [facility] AST 18 5 - 34 U/L 08/23/2024 10:23 AM [facility] Anion Gap 10 6 - 16 08/23/2024 10:23 AM [facility] BUN/Creatinine Ratio 14 7 - 23 08/23/2024 10:23 AM [facility] Osmolality Calculated 294 275 - 295 mOsm/kg 08/23/2024 10:23 AM [facility] Albumin/Globulin Ratio 1.1 1.1 - 2.3 08/23/2024 10:23 AM [facility] eGFR by CKD-EPI >90 >=90 mL/min/1.7 3 m2 08/23/2024 10:23 AM [facility] Blood BLOOD SPECIMEN / Unknown Venipuncture / Unknown 08/23/2024 9:40 AM ELECTROFORMER 08/23/2024 9:56 AM ELECTROFORMER Hussain Carias MD LAB - CHEMISTRY JON NAIDU Performing Organization Address [facility]/ZIP Co de Phone Number [address] [address], [facility] [phone] * (ABNORMAL) PHOSPHORUS BLOOD (08/23/2024 9:40 AM ELECTROFORMER) Phosphorus 2.6(L) 2.9 - 5.1 mg/dL 08/23/2024 10:23 AM ELECTROFORMER [facility] Blood BLOOD SPECIMEN / Unknown Venipuncture / Unknown 08/23/2024 9:40 AM ELECTROFORMER 08/23/2024 9:56 AM ELECTROFORMER Hussain Carias MD LAB - CHEMISTRY JON NAIDU Performing Organization Address [facility]/ZIP Co de Phone Number [address] [address], [facility] [phone] * MAGNESIUM BLOOD (08/23/2024 9:40 AM ELECTROFORMER) Magnesium 1.9 1.6 - 2.6 mg/dL 08/23/2024 10:23 AM ELECTROFORMER [facility] Blood BLOOD SPECIMEN / Unknown Venipuncture / Unknown 08/23/2024 9:40 AM ELECTROFORMER 08/23/2024 9:56 AM ELECTROFORMER Hussain Carias MD LAB - CHEMISTRY JON NAIDU Performing Organization Address [facility]/ZIP Co de Phone Number [address] [address], [facility] [phone] * HEPATITIS C AB SCREEN RFLX NAAT QUANT (09/04/2023 5:20 AM ELECTROFORMER) Hepatitis C Antibody Non-react [place] Non-reac tive 09/04/2023 6:58 AM ELECTROFORMER [facility] Comment:Hepatitis C Antibody screen indicates no serologic evidence of past or current infection with Hepatitis C Virus. Patients with unexplained liver disease who are immunocompromised or suspected of having acute Hepatitis C infection may benefit from Nucleic Acid Test (PRADIP) for Hepatitis C Viral RNA to confirm Hepatitis C status. Blood BLOOD SPECIMEN / Unknown Lab Venipuncture / Unknown 09/04/2023 5:20 AM ELECTROFORMER 09/04/2023 6:05 AM ELECTROFORMER Graham Beltran MD LAB - CHEMISTRY JON NAIDU Performing Organization Address City/[facility]/ZIP Co de Phone Number [facility] [address] [place] [address], [place] [phone] * HIV-1 HIV-2 ANTIBODY + HIV P24 AG PANEL (09/04/2023 5:20 AM ELECTROFORMER) HIV Antigen/Antibod y 1 & 2 Non-reacti ve Non-react easton 09/04/2023 6:59 AM ELECTROFORMER [facility] Comment:No Laboratory eviden ce of HIV infection. Blood BLOOD SPECIMEN / Unknown Lab Venipuncture / Unknown 09/04/2023 5:20 AM ELECTROFORMER 09/04/2023 6:05 AM ELECTROFORMER Graham Beltran MD LAB - CHEMISTRY JON NAIDU Performing Organization Address [facility] Co de Phone Number [address] [address], [place] [phone] from Last 3 Months or Most Recently [...] 1:49 AM 10/09/2023 6:20 PM Care Teams Storage Worker Relationship Specialty Start Date End Date Osmar Ragland MD [address] [place] [address] PCP - General Family Medicine 04/19/24
--- OUTSIDE RECORDS SUMMARY | 2024-10-15 11:08 | XMS_ITS | Encounter Summary ---
Author Organization [facility] Address [facility] [place] [address] Care Team Providers Care Printing Roller Polisher Name Role Phone Nilam Mayers MD Primary Care Provider [phone]- [phone] Osmar Ragland MD Primary Care Provider [phone] Encounter Details Date Type Department Care Team (Late st Contact Info) Description 10/08/2023 Ophth Exam [facility] - Op[facility]mology [address] [place] [address] Dano Jean MD [address] [facility] [place] [address] Social History Tobacco Use Types [...] care, and heating? Not very hard 09/06/2023 [facility] [place] of Occupat ional Health - Occupational Stress [...] st Contact Info) Description 10/27/2024 10:30 AM MARINE STEAM FITTER Appointment [facility] [address] [place] [id number] Hussain Carias MD [address] [place] [address] Britni Winston, PA-C [address] [place] [address] 11/17/2024 9:00 AM MARINE STEAM FITTER Office Visit [facility] - Ophthalmology [address] [place] [address], [place] [address] Song Hobson MD [address] [place] [address] [place] [address] documented as of this encounter Visit Diagnoses Not on filedocumented in this encounter Additional Health Concerns Infection Onset Date Last Indicated Resolved Time COVID-19 Under Investigation 11/10/2023 11/10/2023 11/10/2023 6:57 PM MARINE STEAM FITTER COVID-19 Under Investigation 12/19/2023 12/19/2023 12/19/2023 3:31 PM CDT documented as of this encounter Care Teams Printing Roller Polisher Relationship Specialty Start Date End Date Nilam Mayers MD [address] [place] [phone] PCP - General Family Medicine 09/04/23 04/18/24 Osmar Ragland MD [address] [place] [phone] PCP - General Family Medicine 04/19/24 documented as of this encounter
--- OUTSIDE RECORDS SUMMARY | 2024-10-15 11:08 | XMS_ITS | Encounter Summary ---
Author Organization [facility] Address [facility]3 [facility] [place] [address] Care Team Providers Care Insurance Claims Analyst Name Role Phone Nilam Mayers MD Primary Care Provider [phone]- [phone] Osmar Ragland MD Primary Care Provider [phone] Encounter Details Date Type Department Care Team (Late st Contact Info) Description 10/02/2023 Ophth Exam [facility] - Ophthalmology [address] [place] [address] Dano Jean MD [address] [facility] [place] [address] Social History Tobacco Use Types [...] care, and heating? Not very hard 09/06/2023 [facility] [place] of Occupat ional Health - Occupational Stress [...] st Contact Info) Description 10/27/2024 10:30 AM DRYCLEANER Appointment [facility] [address] [phone] Hussain Carias MD [address] [place] [address] Britni Winston, PA-C [address] [place] [address] 11/17/2024 9:00 AM DRYCLEANER Office Visit [facility] - Ophthalmology [address] [place] [address], [place] [address] Song Hobson MD [address] [place] [address] [place] [address] documented as of this encounter Visit Diagnoses Not on filedocumented in this encounter Additional Health Concerns Infection Onset Date Last Indicated Resolved Time COVID-19 Under Investigation 11/10/2023 11/10/2023 11/10/2023 6:57 PM DRYCLEANER COVID-19 Under Investigation 12/19/2023 12/19/2023 12/19/2023 3:31 PM CDT documented as of this encounter Care Teams Insurance Claims Analyst Relationship Specialty Start Date End Date Nilam Mayers MD [address] [place] [phone] PCP - General Family Medicine 09/04/23 04/18/24 Osmar Ragland MD [address] [place] [phone] PCP - General Family Medicine 04/19/24 documented as of this encounter
--- OUTSIDE RECORDS SUMMARY | 2024-10-15 11:08 | XMS_ITS | Clinical Summary ---
Author Organization [facility] Address [facility] [facility] [place] [address] Care Team Providers Care Geothermal Installer Name Role Phone Osmar Ragland MD Primary Care Provider [phone] Source Comments [facility],non-owned Affiliates and Associated Physician Practices is amultiple site organization consisting of ambulatory clinics and hospital sitesin [place], [place]. This disclosure is being madepursuant to the Care Everywhere program and may not contain all information available regarding this patient. 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) from Last 3 Months Immunizations Name Administration [...] Recorded Patient Health Questionnaire-2 Score 0 03/03/2024 [facility] [place] of Occupat ional Health - Occupational Stress [...] Comments Blood Pressure 136/93 08/23/2024 9:57 AM IT CONSULTANT Pulse 90 08/23/2024 9:57 AM IT CONSULTANT Temperature 36.7 ??C (98.1 ??F) 08/23/2024 9:57 AM CS T Respiratory Rate 18 08/23/2024 9:57 AM IT CONSULTANT Oxygen Saturation 97% 08/23/2024 9:57 AM IT CONSULTANT Inhaled Oxygen Concentration 21% 09/16/2023 4 :17 AM IT CONSULTANT Weight 117.3 kg (258 lb 11.2 oz) 08/23/2024 9:57 AM IT CONSULTANT Height 157.5 cm (5' 2 ) 08/23/2024 9:57 AM IT CONSULTANT Body Mass Index 47.32 08/23/2024 9:57 AM IT CONSULTANT Plan of Treatment Upcoming Encounters Date Type Department Care Team (Late st Contact Info) Description 10/27/2024 10:30 AM IT CONSULTANT Appointment [facility] [address] [place] [address] Hussain Carias MD [address] [place] [id number] Britni Winston, PA-C [address] [place] [address] 11/17/2024 9:00 AM IT CONSULTANT Office Visit [facility] - Ophthalmology [address] [place] [address], [place] [address] Song Hobson MD [address] [place] [address] [place] [address] Health Maintenance Due Date Last Done Comments DTAP/TDAP/TD VACCINES (1 - Tdap) 2005 HEPATITIS B VACCINE (1 of 3 - 19+ 3-dose series) 2005 PNEUMOCOCCAL VACCINE (1 of 2 - PCV) 2005 ZOSTER VACCINE (1 of 2) 2005 COVID-19 VACCINE (2 - Pfizer risk series) 05/22/2021 05/01/2021 PAP SMEAR 07/04/2023 07/04/2020, 07/04/2020, 07/04/2020 INFLUENZA VACCINE (#1) 2024 07/18/2020 DEPRESSION SCREENING 09/15/2024 03/03/2024 HEPATITIS C SCREENING Completed 09/04/2023 HIV SCREENING Completed 09/04/2023 HIB VACCINE Aged Out No longer eligi ble based on patient's age to complete this topic HPV VACCINE Aged Out No longer eligi ble based on patient's age to complete this topic MENINGOCOCCAL (Group B) VACCINE Aged Out No longer eligible b ased on patient's age to complete this topic MENINGOCOCCAL VACCINE Aged Out No andrea josephine eligible based on patient's age to complete this topic Medical Devices Implanted 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 Balbina neil nawaf Procedures Procedure Name Priority Date/Time Associated Diagnosis Comments NPM1 MUTATION DETECTION PCR Routine 08/23/2024 9:40 AM IT CONSULTANT Acute myeloid leukemia in remission (HCC) PHOSPHORUS BLOOD Routine 08/23/2024 9:40 AM IT CONSULTANT Acute myeloid leukemia in remission (HCC) MAGNESIUM BLOOD Routine 08/23/2024 9:40 AM IT CONSULTANT Acute myeloid leukemia in remission (HCC) COMPREHENSIVE METABOLIC PANEL Routine 08/23/2024 9:40 AM IT CONSULTANT Acute myeloid leukemia in remission (HCC) CBC W AUTO DIFFERENTIAL Routine 08/23/2024 9:40 AM IT CONSULTANT Acute myeloid leukemia in remission (HCC) HEPATITIS C AB SCREEN RFLX NAAT QUANT Routine 09/04/2023 5:20 AM IT CONSULTANT HIV-1 HIV-2 ANTIBODY + HIV P24 AG PANEL Routine 09/04/2023 5:20 AM IT CONSULTANT from Last 3 Months or Most Recently Relevant to Health Maintenance Results * NPM1 MUTATION DETECTION PCR (08/23/2024 9:40 AM IT CONSULTANT) [facility] NPM1 Source Whole Blood 08/27/2024 1:35 PM IT CONSULTANT [facility] ([facility]) NPM1 Result Not Detected 08/27/2024 1:35 PM IT CONSULTANT [facility] ([facility]) Comment: A NPM1 (type A, [...] developed and its performance characteristics determined by [employer]. It has not been cleared or approved by the US Food and Drug Administration. This test was performed in a CLIA certified laboratory and is intended for clinical purposes. NPM1 Ratio 0.0000 08/27/2024 1:35 PM [facility] ([facility]) Comment: Performed By: [facility] [employer] [address] [place] [address] Program Supervisor: Ebenezer Shipman MD, PhD CLIA Number: [id number] BLOOD SPECIMEN / Unknown 08/23/2024 9:40 AM IT CONSULTANT 08/23/2024 9:56 AM IT CONSULTANT Hussain Carias MD LAB - CHEMISTRY JON NAIDU [facility] Organization Address City/State/ZIP Co de Phone Number [facility]) [address] [place] [address] * (ABNORMAL) CBC WITH DIFFERENTIAL (08/23/2024 9:40 AM IT CONSULTANT) WBC 5.2 4.0 - 10.7 x10E9/L 08/23/2024 10:03 AM [facility] RBC Count 4.47 3.90 - 5.20 x10E12/L 08/23/2024 10:03 AM [facility] Hemoglobin 14.1 11.9 - 15.8 g/dL 08/23/2024 10:03 AM [facility] Hematocrit 40.6 34.8 - 46.1 % 08/23/2024 10:03 AM [facility] MCV 90.8 80.0 - 98.0 fL 08/23/2024 10:03 AM [facility] MCH 31.5 26.7 - 33.6 pg 08/23/2024 10:03 AM [facility] MCHC 34.7 31.7 - 36.3 g/dL 08/23/2024 10:03 AM [facility] RDW-CV 12.6 11.3 - 14.8 % 08/23/2024 10:03 AM [facility] Platelet Count 153 150 - 420 x10E9/L 08/23/2024 10:03 AM [facility] MPV 9.1 7.8 - 11.4 fL 08/23/2024 10:03 AM [facility] Preliminary Absolute Neutrophil 3.81 1.60 - 7.50 x10E9/L 08/23/2024 10:03 AM [facility] Neutrophil % 72.7 41.0 - 74.0 % 08/23/2024 10:03 AM [facility] Lymphocyte % 17.0 17.0 - 47.0 % 08/23/2024 10:03 AM [facility] Monocyte % 8.4 3.0 - 11.0 % 08/23/2024 10:03 AM [facility] Eosinophil % 1.3 0.0 - 7.0 % 08/23/2024 10:03 AM [facility] Basophil % 0.2 0.0 - 1.6 % 08/23/2024 10:03 AM [facility] Immature Granulocytes % 0.4 0.0 - 1.0 % 08/23/2024 10:03 AM [facility] Neutrophil Absolute 3.81 1.60 - 7.50 x10E9/L 08/23/2024 10:03 AM [facility] Lymphocyte Absolute 0.89(L) 1.00 - 4.40 x10E9/L 08/23/2024 10:03 AM [facility] Monocyte Absolute 0.44 0.15 - 1.00 x10E9/L 08/23/2024 10:03 AM [facility] Eosinophil Absolute 0.07 0.00 - 0.60 x10E9/L 08/23/2024 10:03 AM [facility] Basophil Absolute 0.01 0.00 - 0.13 x10E9/L 08/23/2024 10:03 AM [facility] Blood BLOOD SPECIMEN / Unknown Venipuncture / Unknown 08/23/2024 9:40 AM [facility] 08/23/2024 9:56 AM [facility] Hussain Carias MD LAB - HEMATOLOGY ORD ERABLES [facility] [address] [place] [address], [facility] [phone] * (ABNORMAL) COMPREHENSIVE METABOLIC PANEL (08/23/2024 9:40 AM [facility]) BUN 9 7 - 26 mg/dL 08/23/2024 10:23 AM [facility] Creatinine 0.63 0.56 - 0.96 mg/dL 08/23/2024 10:23 AM [facility] Sodium 141 136 - 145 mmol/L 08/23/2024 10:23 AM [facility] Potassium 3.5 3.5 - 4.5 mmol/L 08/23/2024 10:23 AM [facility] Chloride 112(H) 98 - 107 mmol/L 08/23/2024 10:23 AM [facility] CO2 19(L) 22 - 29 mmol/L 08/23/2024 10:23 AM [facility] Glucose 155(H) 70 - 99 mg/dL 08/23/2024 10:23 AM [facility] Calcium 9.3 8.4 - 10.2 mg/dL 08/23/2024 10:23 AM [facility] Protein Total 7.0 6.0 - 8.3 g/dL 08/23/2024 10:23 AM [facility] Albumin 3.7 3.4 - 5.0 g/dL 08/23/2024 10:23 AM [facility] Bilirubin Total 0.4 0.2 - 1.2 mg/dL 08/23/2024 10:23 AM [facility] Alkaline Phosphatase 106 40 - 150 U/L 08/23/2024 10:23 AM [facility] ALT 18 5 - 55 U/L 08/23/2024 10:23 AM [facility] AST 18 5 - 34 U/L 08/23/2024 10:23 AM [facility] Anion Gap 10 6 - 16 08/23/2024 10:23 AM [facility] BUN/Creatinine Ratio 14 7 - 23 08/23/2024 10:23 AM [facility] Osmolality Calculated 294 275 - 295 mOsm/kg 08/23/2024 10:23 AM [facility] Albumin/Globulin Ratio 1.1 1.1 - 2.3 08/23/2024 10:23 AM [facility] eGFR by CKD-EPI >90 >=90 mL/min/1.7 3 m2 08/23/2024 10:23 AM [facility] Blood BLOOD SPECIMEN / Unknown Venipuncture / Unknown 08/23/2024 9:40 AM IT CONSULTANT 08/23/2024 9:56 AM IT CONSULTANT Hussain Carias MD LAB - CHEMISTRY JON NAIDU Performing Organization Address City/[facility]/ZIP Co de Phone Number [address] [address], [facility] [phone] * (ABNORMAL) PHOSPHORUS BLOOD (08/23/2024 9:40 AM IT CONSULTANT) Phosphorus 2.6(L) 2.9 - 5.1 mg/dL 08/23/2024 10:23 AM [facility] Blood BLOOD SPECIMEN / Unknown Venipuncture / Unknown 08/23/2024 9:40 AM IT CONSULTANT 08/23/2024 9:56 AM IT CONSULTANT Hussain Carias MD LAB - CHEMISTRY JON NAIDU [address] [address], [facility] [phone] * MAGNESIUM BLOOD (08/23/2024 9:40 AM IT CONSULTANT) Magnesium 1.9 1.6 - 2.6 mg/dL 08/23/2024 10:23 AM [facility] Blood BLOOD SPECIMEN / Unknown Venipuncture / Unknown 08/23/2024 9:40 AM IT CONSULTANT 08/23/2024 9:56 AM IT CONSULTANT Hussain Carias MD LAB - CHEMISTRY JON NAIDU [address] [address], [place] [phone] * HEPATITIS C AB SCREEN RFLX NAAT QUANT (09/04/2023 5:20 AM IT CONSULTANT) Hepatitis C Antibody Non-react easton Non-reac tive 09/04/2023 6:58 AM IT CONSULTANT [facility] Comment:Hepatitis C Antibody screen indicates no serologic evidence of past or current infection with Hepatitis C Virus. Patients with unexplained liver disease who are immunocompromised or suspected of having acute Hepatitis C infection may benefit from Nucleic Acid Test (PRADIP) for Hepatitis C Viral RNA to confirm Hepatitis C status. Blood BLOOD SPECIMEN / Unknown Lab Venipuncture / Unknown 09/04/2023 5:20 AM IT CONSULTANT 09/04/2023 6:05 AM IT CONSULTANT Graham Beltran MD LAB - CHEMISTRY JON NAIDU Performing Organization Address City/[facility]/ZIP Co de Phone Number [facility] [address] [place] [address], [place] [phone] * HIV-1 HIV-2 ANTIBODY + HIV P24 AG PANEL (09/04/2023 5:20 AM IT CONSULTANT) Pathologist [facility] HIV Antigen/Antibod y 1 & 2 Non-reacti ve Non-react easton 09/04/2023 6:59 AM IT CONSULTANT [facility] Comment:No Laboratory eviden ce of HIV infection. Blood BLOOD SPECIMEN / Unknown Lab Venipuncture / Unknown 09/04/2023 5:20 AM IT CONSULTANT 09/04/2023 6:05 AM IT CONSULTANT Graham Beltran MD LAB - CHEMISTRY JON NAIDU [facility] [address] [place] [id number], [place] [phone] from Last 3 Months or Most Recently [...] 1:49 AM 10/09/2023 6:20 PM Care Teams Geothermal Installer Relationship Specialty Start Date End Date Osmar Ragland MD [address] [place] [address] PCP - General Family Medicine 04/19/24
--- OUTSIDE RECORDS SUMMARY | 2024-10-15 11:09 | XMS_ITS ---
Author Organization [facility] Address [facility] [place] [address] Care Team Providers Care [employer] Principal Name Role Phone Osmar Ragland MD Primary [...] treatments are documented for this patient in [facility]. Treatments may have been administered in [...]
--- OUTSIDE RECORDS SUMMARY | 2024-10-15 11:09 | XMS_ITS | Patient Health Summary ---
Author Organization [facility] Address [address] [place] [address] Care Team Providers Care Mental Health Assistant Name Role Phone Osmar Ragland MD Primary Care Provider [phone] Note from [facility],non-owned Affiliates and Associated Physician Practices is amultiple site organization consisting of ambulatory clinics and hospital sitesin [place], [place], [place] and [place]. This disclosure is being madepursuant to the Care Everywhere program and may not contain all information available regarding this patient. Last updated 18.[facility] Allergies * Vancomycin(Itching) Medications * Be aware [...] 2 times daily 3 refills by 08/23/2025 Active Problems Problem Noted Date Diagnosed Date [...] Recorded Patient Health Questionnaire-2 Score 0 03/03/2024 [facility] [place] of Occupat ional Health - Occupational Stress [...] Comments Blood Pressure 136/93 08/23/2024 9:57 AM CLOTHING CONSULTANT Pulse 90 08/23/2024 9:57 AM CLOTHING CONSULTANT Temperature 36.7 ??C (98.1 ??F) 08/23/2024 9:57 AM CS T Respiratory Rate 18 08/23/2024 9:57 AM CLOTHING CONSULTANT Oxygen Saturation 97% 08/23/2024 9:57 AM CLOTHING CONSULTANT Inhaled Oxygen Concentration 21% 09/16/2023 4 :17 AM CLOTHING CONSULTANT Weight 117.3 kg (258 lb 11.2 oz) 08/23/2024 9:57 AM CLOTHING CONSULTANT Height 157.5 cm (5' 2 ) 08/23/2024 9:57 AM CLOTHING CONSULTANT Body Mass Index 47.32 08/23/2024 9:57 AM CLOTHING CONSULTANT Medical Devices Implanted Type Area Library Assistant Device Identifier Shelf Expiration Date Model / Serial / Lot Tray Cath 12fr 19cm Hkmn Trifusion 3 Lum Implanted:Qty: 1 on 09/05/2023 at [facility] Right: Chest [employer] 11/12/2024 [id number] / / [id number] Description:Dr. Balbina neil nawaf Procedures * NPM1 MUTATION DETECTION PCR(Performed 08/23/2024) [...] Acute myeloid leukemia in remission (HCC) * AK US PELVIC NONOB REAL-TIME IMG COMPLETE(Performed 04/19/2024) Performed for Dermoid cyst of left ovary, Abnormal uterine bleeding (AUB), Hematometra * AK SONO EXAM, TRANSVAGINAL(Performed 04/19/2024) Performed for Dermoid [...] * CULTURE CSF+GRAM STAIN(Performed 10/06/2023) * CYTOLOGY NON-STOGY MAKER PANEL (STL)(Performed 10/06/2023) Performed for Acute leukemia [...] imaging of central nervous system * CYTOLOGY NON-STOGY MAKER PANEL (STL)(Performed 10/01/2023) Performed for Abnormal imaging [...] 09/04/2023) * PTT [facility](Performed 09/04/2023) * PT-INR [facility](Performed 09/04/2023) * FIBRINOGEN ACTIVITY(Performed 09/04/2023) * D-DIMER(Performed [...] NPM1 MUTATION DETECTION PCR (08/23/2024 9:40 AM CLOTHING CONSULTANT) Only the most recent of4 resultswithin the time period is included. NPM1 Source Whole Blood 08/27/2024 1:35 PM CLOTHING CONSULTANT [facility] ([facility]) NPM1 Result Not Detected 08/27/2024 1:35 PM CLOTHING CONSULTANT [facility] ([facility]) Comment: A NPM1 (type A, B, [...] developed and its performance characteristics determined by [employer]. It has not been cleared or approved by the US Food and Drug Administration. This test was performed in a CLIA certified laboratory and is intended for clinical purposes. NPM1 Ratio 0.0000 08/27/2024 1:35 PM [facility] ([facility]) Comment: Performed By: [facility] [employer] [address] [place] [address] Plug And Mold Finisher: Ebenezer Shipman MD, PhD CLIA Number: [id number] BLOOD SPECIMEN / Unknown 08/23/2024 9:40 AM CLOTHING CONSULTANT 08/23/2024 9:56 AM CLOTHING CONSULTANT Hussain Carias MD LAB - CHEMISTRY ORDE ELYSIA Performing Organization Address City/State/[facility] Co de Phone Number [facility]) [address] [place] [address] * (ABNORMAL) CBC WITH DIFFERENTIAL (08/23/2024 9:40 AM CLOTHING CONSULTANT) Only the most recent of111 resultswithin the time period is included. WBC 5.2 4.0 - 10.7 x10E9/L 08/23/2024 10:03 AM [facility] RBC Count 4.47 3.90 - 5.20 x10E12/L 08/23/2024 10:03 AM [facility] Hemoglobin 14.1 11.9 - 15.8 g/dL 08/23/2024 10:03 AM [facility] Hematocrit 40.6 34.8 - 46.1 % 08/23/2024 10:03 AM [facility] MCV 90.8 80.0 - 98.0 fL 08/23/2024 10:03 AM [facility] MCH 31.5 26.7 - 33.6 pg 08/23/2024 10:03 AM [facility] MCHC 34.7 31.7 - 36.3 g/dL 08/23/2024 10:03 AM [facility] RDW-CV 12.6 11.3 - 14.8 % 08/23/2024 10:03 AM [facility] Platelet Count 153 150 - 420 x10E9/L 08/23/2024 10:03 AM [facility] MPV 9.1 7.8 - 11.4 fL 08/23/2024 10:03 AM [facility] Preliminary Absolute Neutrophil 3.81 1.60 - 7.50 x10E9/L 08/23/2024 10:03 AM [facility] Neutrophil % 72.7 41.0 - 74.0 % 08/23/2024 10:03 AM [facility] Lymphocyte % 17.0 17.0 - 47.0 % 08/23/2024 10:03 AM [facility] Monocyte % 8.4 3.0 - 11.0 % 08/23/2024 10:03 AM [facility] Eosinophil % 1.3 0.0 - 7.0 % 08/23/2024 10:03 AM [facility] Basophil % 0.2 0.0 - 1.6 % 08/23/2024 10:03 AM [facility] Immature Granulocytes % 0.4 0.0 - 1.0 % 08/23/2024 10:03 AM [facility] Neutrophil Absolute 3.81 1.60 - 7.50 x10E9/L 08/23/2024 10:03 AM [facility] Lymphocyte Absolute 0.89(L) 1.00 - 4.40 x10E9/L 08/23/2024 10:03 AM [facility] Monocyte Absolute 0.44 0.15 - 1.00 x10E9/L 08/23/2024 10:03 AM [facility] Eosinophil Absolute 0.07 0.00 - 0.60 x10E9/L 08/23/2024 10:03 AM [facility] Basophil Absolute 0.01 0.00 - 0.13 x10E9/L 08/23/2024 10:03 AM [facility] Blood BLOOD SPECIMEN / Unknown Venipuncture / Unknown 08/23/2024 9:40 AM CLOTHING CONSULTANT 08/23/2024 9:56 AM CLOTHING CONSULTANT Hussain Carias MD LAB - HEMATOLOGY ORD ERABLES [facility] [address] [place] [address], [facility] [phone] * (ABNORMAL) COMPREHENSIVE METABOLIC PANEL (08/23/2024 9:40 AM [facility]) Only the most recent of98 resultswithin the time period is included. BUN 9 7 - 26 mg/dL 08/23/2024 10:23 AM [facility] Creatinine 0.63 0.56 - 0.96 mg/dL 08/23/2024 10:23 AM [facility] Sodium 141 136 - 145 mmol/L 08/23/2024 10:23 AM [facility] Potassium 3.5 3.5 - 4.5 mmol/L 08/23/2024 10:23 AM [facility] Chloride 112(H) 98 - 107 mmol/L 08/23/2024 10:23 AM [facility] CO2 19(L) 22 - 29 mmol/L 08/23/2024 10:23 AM [facility] Glucose 155(H) 70 - 99 mg/dL 08/23/2024 10:23 AM [facility] Calcium 9.3 8.4 - 10.2 mg/dL 08/23/2024 10:23 AM [facility] Protein Total 7.0 6.0 - 8.3 g/dL 08/23/2024 10:23 AM [facility] Albumin 3.7 3.4 - 5.0 g/dL 08/23/2024 10:23 AM [facility] Bilirubin Total 0.4 0.2 - 1.2 mg/dL 08/23/2024 10:23 AM [facility] Alkaline Phosphatase 106 40 - 150 U/L 08/23/2024 10:23 AM [facility] ALT 18 5 - 55 U/L 08/23/2024 10:23 AM [facility] AST 18 5 - 34 U/L 08/23/2024 10:23 AM [facility] Anion Gap 10 6 - 16 08/23/2024 10:23 AM [facility] BUN/Creatinine Ratio 14 7 - 23 08/23/2024 10:23 AM [facility] Osmolality Calculated 294 275 - 295 mOsm/kg 08/23/2024 10:23 AM [facility] Albumin/Globulin Ratio 1.1 1.1 - 2.3 08/23/2024 10:23 AM [facility] eGFR by CKD-EPI >90 >=90 mL/min/1.7 3 m2 08/23/2024 10:23 AM [facility] Blood BLOOD SPECIMEN / Unknown Venipuncture / Unknown 08/23/2024 9:40 AM CLOTHING CONSULTANT 08/23/2024 9:56 AM CLOTHING CONSULTANT Hussain Carias MD LAB - CHEMISTRY JON NAIDU [facility] [address] [place] [phone], [facility] [phone] * (ABNORMAL) PHOSPHORUS BLOOD (08/23/2024 9:40 AM CLOTHING CONSULTANT) Only the most recent of93 resultswithin the time period is included. Phosphorus 2.6(L) 2.9 - 5.1 mg/dL 08/23/2024 10:23 AM [facility] Blood BLOOD SPECIMEN / Unknown Venipuncture / Unknown 08/23/2024 9:40 AM CLOTHING CONSULTANT 08/23/2024 9:56 AM CLOTHING CONSULTANT Hussain Carias MD LAB - CHEMISTRY JON NAIDU [address] [address], [place] [phone] * MAGNESIUM BLOOD (08/23/2024 9:40 AM CLOTHING CONSULTANT) Only the most recent of92 resultswithin the time period is included. Magnesium 1.9 1.6 - 2.6 mg/dL 08/23/2024 10:23 AM [facility] Blood BLOOD SPECIMEN / Unknown Venipuncture / Unknown 08/23/2024 9:40 AM CLOTHING CONSULTANT 08/23/2024 9:56 AM CLOTHING CONSULTANT Hussain Carias MD LAB - CHEMISTRY JON NAIDU [facility] Organization Address City/State/ZIP Co de Phone Number [facility] [address] [place] [address], [facility] [phone] * XR Knee Right 3Vw (06/25/2024 12:43 PM CDT) Anatomical Region Laterality Modality Lower Extremity Digital Radiogra phy 06/25/2024 3:49 PM CDT Impressions 06/28/2024 9:54 AM CDT IMPRESSION: No acute fracture or dislocation identified. Report dictated by Sivakumar Garrido DO (president and cmo). Sergio Bartholomew MD have personally reviewed and interpreted this examination/study. > Interpreting Provider: Sergio Arango MD on 06/28/2024 9:54 AM Narrative 06/28/2024 9:54 AM CDT PROCEDURE: ??XR KNEE RIGHT 3VW, DATE/TIME OF EXAM: ??06/25/2024 12:44 PM, LOCATION ??[facility] INDICATION: M25.561: Acute pain of right [...] DATE/TIME OF EXAM: 06/25/2024 12:44 PM, LOCATION [facility] INDICATION: M25.561: Acute pain of right [...] identified. Report dictated by Sivakumar Garrido DO (president and cmo). I, Sergio Arango MD have personally reviewed and interpreted this examination/study. > Interpreting Provider: Sergio Arango MD on 06/28/2024 9:54 AM Rossana Jay APRN-MIRROR INSTALLER DIAGNOSTIC IMAGING O RDERABLES * (ABNORMAL) URIC ACID BLOOD (06/25/2024 11:19 AM CDT) Only the most recent of52 resultswithin the time period is included. Uric Acid 6.5(H) 2.6 - 6.0 mg/dL 06/25/2024 11:56 AM CDT [facility] Blood BLOOD SPECIMEN / Unknown Venipuncture / Unknown 06/25/2024 11:19 AM CDT 06/25/2024 11:32 AM CDT Britni Winston PA-C LAB - CHEMISTRY ORDE RABQI [facility] [address] [place] [phone], [facility] [phone] * TYPE + SCREEN PANEL (06/25/2024 11:19 AM CDT) Only the most recent of51 resultswithin the time period is included. Antibody Screen NEG 12:16 PM CDT [facility] ABO Rh O POS 06/25/2024 12:16 PM CDT [facility] Blood Bank BLOOD SPECIMEN / Unknown Venipuncture / Unknown 06/25/2024 11:19 AM CDT 06/25/2024 11:35 AM CDT Britni Winston PA-C LAB - BLOOD BANK ORD ERAJANES [facility] [address] [place] [address], [place] [phone] * ERYTHROCYTE SEDIMENTATION RATE (06/25/2024 11:19 AM CDT) Erythrocyte Sedimentation Rate Westergren 17 0 - 20 MM/HR 06/25/2024 12:25 PM CDT [facility] Blood BLOOD SPECIMEN / Unknown Venipuncture / Unknown 06/25/2024 11:19 AM CDT 06/25/2024 11:32 AM CDT Rossana LOPEZ LAB - HEMATOLOGY ORD ERABLES Performing Organization Address City/[facility]/ZIP Co de Phone Number [facility] [address] [place] [phone], [facility] [phone] * LDH BLOOD (06/25/2024 11:19 AM CDT) Only the most recent of49 resultswithin the time period is included. LDH Total 182 125 - 243 Units/L 06/25/2024 11:56 AM CDT [facility] Blood BLOOD SPECIMEN / Unknown Venipuncture / Unknown 06/25/2024 11:19 AM CDT 06/25/2024 11:32 AM CDT Britni Winston PA-C LAB - CHEMISTRY ORDE ELYSIA Performing Organization Address City/[facility]/ZIP Co de Phone Number [address] [address], [place] [phone] * AK SONO EXAM, TRANSVAGINAL, AK US PELVIC NONOB REAL-TIME IMG COMPLETE (04/19/2024 [...] - 155.0 ug/dL 04/01/2024 5:17 PM CDT [facility] ([facility]) Comment: INTERPRETIVE INFORMATION: Copper, Serum or [...] developed and its performance characteristics determined by [facility] [employer]. It has not been cleared or approved by the US Food and Drug Administration. This test was performed in a CLIA certified laboratory and is intended for clinical purposes. Performed By: [facility] [employer] [address] [place] [address] [employer] Finisher: Ebenezer Shipman MD, PhD CLIA Number: [id number] Blood BLOOD SPECIMEN / Unknown Venipuncture / Unknown 03/31/2024 12:18 PM CDT 03/31/2024 12:30 PM CDT Britni Winston PA-C LAB - CHEMISTRY JON NAIDU [facility] ([facility]) [address] [place], [place] [address] * FOLATE (03/31/2024 12:18 PM CDT) [facility] Folate 13.5 7.0 - 31.4 ng/mL 03/31/2024 1:41 PM CDT [facility] Blood BLOOD SPECIMEN / Unknown Venipuncture / Unknown 03/31/2024 12:18 PM CDT 03/31/2024 12:35 PM CDT Britni Winston PA-C LAB - CHEMISTRY JON NAIDU [address] [address], [facility] [phone] * VITAMIN B12 (03/31/2024 11:22 AM CDT) Vitamin B12 267 213 - 816 pg/mL 03/31/2024 12:32 PM CDT [facility] Blood BLOOD SPECIMEN / Unknown Venipuncture / Unknown 03/31/2024 11:22 AM CDT 03/31/2024 11:26 AM CDT Britni Winston PA-C LAB - CHEMISTRY ORDE ELYSIA [facility] [address] [place] [address], [facility] [phone] * RETINAL ANALYSIS OCT (03/22/2024 7:58 AM CDT) Anatomical Region Laterality Modality Head External-Camera Photography Narrative 03/22/2024 9:24 AM CDT OD: Normal foveal contour, vitreous cells (resolving VH) OS: Normal foveal contour, vitreous cells (resolving VH) Darvin Jeronimo MD OPHTHALMOLOGY [facility] ED ORD W PACS * IR CENTRAL [...] myeloid leukemia in remission (HCC) Additional History: System Archive Analyst: Maria G Mortensen MD COMPARISON: None. FLUOROSCOPY DOSE: Reference air kerma (ka,r). FINDINGS: Following informed consent the patient was taken to the angiography suite where they were noted to have a Right ??internal jugular tunneled central venous catheter. Restaurant Mgr film with the existing catheter was obtained. [...] myeloid leukemia in remission (HCC) Additional History: System Archive Analyst: Maria G Mortensen MD COMPARISON: None. FLUOROSCOPY DOSE: Reference air kerma (ka,r). FINDINGS: Following informed consent the patient was taken to the angiographysuite where they were noted to have a Right internal jugular tunneled central venous catheter. Restaurant Mgr film with the existing catheter was obtained.The [...] Urine Negative Negative 03/03/2024 8:48 AM CDT [facility] Urine URINE / Unknown 03/03/2024 8 :41 AM CDT 03/03/2024 8:48 AM CDT Britni Winston PA-C LAB - POINT OF CARE ORDERABLES Performing Organization Address City/[facility]/ZIP Co de Phone Number [address] [address], [facility] [phone] * HCG URINE QUAL POCT NOTIFICATION (03/03/2024 8:38 AM CDT) Comment Notification Label Only - See Separate Report 03/03/2024 10:00 AM CDT [facility] Urine URINE / Unknown 03/03/2024 8 :38 AM CDT 03/03/2024 8:38 AM CDT Maria G Mortensen MD LAB - URINALYSIS ORD ERABLES Performing Organization Address City/[facility] Co de Phone Number [address] [address], [facility] [phone] * RETINAL ANALYSIS OCT (03/02/2024 12:52 PM CDT) Anatomical Region Laterality Modality Head External-Camera Photography Narrative 03/02/2024 2:12 PM CDT Images from the original result were not included. Song Hobson MD OPHTHALMOLOGY SCHED ORD W PACS * (ABNORMAL) SLIDE SCAN HEMATOLOGY (02/26/2024 1:12 PM CDT) Only the most recent of3 resultswithin the time period is included. RBC Morphology REVIEWED 02/26/2024 2:09 PM CDT [facility] Microcytosis MODERATE(A) (none) 02/26/2024 2:09 PM CDT [facility] Polychromatic Cells MODERATE(A) (none) 02/26/2024 2:09 PM CDT [facility] Schistocytes FEW(A) (none) 02/26/2024 2:09 PM CDT [facility] Blood BLOOD SPECIMEN / Unknown Venipuncture / Unknown 02/26/2024 1:12 PM CDT 02/26/2024 1:23 PM CDT Britni Winston PA-C LAB - HEMATOLOGY ORD ERABLES [facility] [address] [place] [address], [facility] [phone] * TRANSFUSE RED BLOOD CELL LEUKOREDUCED UNIT(S) (02/06/2024 12:58 PM CDT) Hussain Carias MD NURSING - BLOOD PROD TRANSFUSION * PREPARE (CROSSMATCH) RBC UNIT(S), 1 Units (02/06/2024 11:14 AM CDT) Only the most recent of23 resultswithin the time period is included. Unit Description AS1 LR PRBC IRR [facility] Unit ABO O [facility] Unit Rh POS [facility] Product Number R04 [facility] Unit Donor # [id number] [facility] Unit Status transfused [facility] Product Code [id number] [facility] Blood Type Barcode 5100 [facility] Expiration Date [id number] S BLOOD BANK LAB Blood Bank BLOOD SPECIMEN / Unknown 02/06/2024 10:12 AM CDT Hussain Carias MD LAB - BLOOD BANK ORD ERABLES Performing Organization Address City/[facility]/ZIP Co de Phone Number [facility] [address] [phone], [facility] [phone] * (ABNORMAL) DIFFERENTIAL MANUAL (02/02/2024 11:10 AM CDT) Only the most recent of45 resultswithin the time period is included. Neutrophil % 48 41 - 74 % 02/02/2024 12:25 PM [facility] Lymphocyte % 37 17 - 47 % 02/02/2024 12:25 PM [facility] Monocyte % 15(H) 3 - 11 % 02/02/2024 12:25 PM [facility] Neutrophil Absolute 1.87 1.60 - 7.50 x10E9/L 02/02/2024 12:25 PM T [facility] Lymphocyte Absolute 1.44 1.00 - 4.40 x10E9/L 02/02/2024 12:25 PM [facility] Monocyte Absolute 0.59 0.15 - 1.00 x10E9/L 02/02/2024 12:25 PM [facility] RBC Morphology REVIEWED 02/02/2024 12:25 PM [facility] Microcytosis MANY(A) (none) 02/02/2024 12:25 PM [facility] Blood BLOOD SPECIMEN / Unknown Venipuncture / Unknown 02/02/2024 11:10 AM CDT 02/02/2024 11:31 AM CDT Britni Winston PA-C LAB - HEMATOLOGY ORD ERABLES [address] [address], [place] [phone] * (ABNORMAL) PLATELET COUNT AUTO (01/28/2024 11:17 AM CDT) Only the most recent of20 resultswithin the time period is included. Platelet Count 64(L) 150 - 420 x10E9/L 01/28/2024 11:41 AM CDT [facility] Blood BLOOD SPECIMEN / Unknown Line Draw / Unknown 01/28/2024 11:17 AM CDT 01/28/2024 11:29 AM CDT Britni Winston PA-C LAB - HEMATOLOGY ORD ERABLES [address] [address], [place] [phone] * TRANSFUSE PLATELET PHERESIS UNIT(S) (01/28/2024 11:08 AM CDT) Britni Winston PA-C NURSING - BLOOD PROD TRANSFUSION * HCG URINE QUALITATIVE (01/28/2024 10:03 AM CDT) Only the most recent of6 resultswithin the time period is included. Test Urine Negative Negative 01/28/2024 10:28 AM CDT [facility] Urine URINE / Unknown Collection / Unknown 01/28/2024 10:03 AM CDT 01/28/2024 10:08 AM CDT Britni Winston PA-C LAB - URINALYSIS ORD ERABLES Performing Organization Address City/[facility]/ZIP Co de Phone Number [facility] [address] [address], [employer] [phone] * TRANSFUSE PLATELET PHERESIS UNIT(S) (01/26/2024 2:38 PM CDT) Cori Hill ORACLE WMS CONSULTANT-MIRROR INSTALLER NURSING - B LOOD PROD TRANSFUSION * PREPARE PLATELET PHERESIS UNIT(S), 1 Units (01/26/2024 1:54 PM CDT) Only the most recent of33 resultswithin the time period is included. Unit Description LRPLTphere B7 IR [facility] Unit ABO AB [facility] Unit Rh POS [facility] Product Number P32 [facility] Unit Donor # [id number] [facility] Unit Status transfused [facility] Product Code [id number] [facility] Blood Type Barcode 8400 [facility] Expiration Date [id number] S BLOOD BANK LAB Blood Bank BLOOD SPECIMEN / Unknown 01/26/2024 12:51 PM CDT Cori Hill ORACLE WMS CONSULTANT-MIRROR INSTALLER LAB - BLOOD BANK ORDERABLES Performing Organization Address City/[facility]/ZIP Co de Phone Number [facility] [address] [phone], [employer] [phone] * (ABNORMAL) BASIC METABOLIC PANEL (CALCIUM TOTAL) (01/23/2024 12:39 AM CDT) Only the most recent of8 resultswithin the time period is included. BUN 6(L) 7 - 26 mg/dL 01/23/2024 1:18 AM [facility] Creatinine 0.61 0.56 - 0.96 mg/dL 01/23/2024 1:18 AM [facility] Sodium 142 136 - 145 mmol/L 01/23/2024 1:18 AM [facility] Potassium 3.3(L) 3.5 - 4.5 mmol/L 01/23/2024 1:18 AM [facility] Chloride 113(H) 98 - 107 mmol/L 01/23/2024 1:18 AM [facility] CO2 22 22 - 29 mmol/L 01/23/2024 1:18 AM [facility] Glucose 97 70 - 115 mg/dL 01/23/2024 1:18 AM [facility] Calcium 9.4 8.4 - 10.2 mg/dL 01/23/2024 1:18 AM [facility] Anion Gap 7 6 - 16 01/23/2024 1:18 AM [facility] BUN/Creatinine Ratio 10 7 - 23 01/23/2024 1:18 AM [facility] Osmolality Calculated 292 275 - 295 mOsm/kg 01/23/2024 1:18 AM [facility] eGFR by CKD-EPI >90 >=90 mL/min/1.7 3 m2 01/23/2024 1:18 AM [facility] Blood BLOOD SPECIMEN / Unknown Venipuncture / Unknown 01/23/2024 12:39 AM CDT 01/23/2024 12:48 AM CDT Kate Price DO LAB - CHEMISTRY JON NAIDU [facility] [address] [place] [phone], [facility] [phone] * (ABNORMAL) CBC W/O DIFFERENTIAL (01/22/2024 6:04 PM CDT) Only the most recent of3 resultswithin the time period is included. WBC 4.3 4.0 - 10.7 x10E9/L 01/22/2024 6:46 PM [facility] RBC Count 2.85(L) 3.90 - 5.20 x10E12/L 01/22/2024 6:46 PM [facility] Hemoglobin 8.2(L) 11.9 - 15.8 g/dL 01/22/2024 6:46 PM [facility] Hematocrit 22.7(L) 34.8 - 46.1 % 01/22/2024 6:46 PM [facility] MCV 79.6(L) 80.0 - 98.0 fL 01/22/2024 6:46 PM [facility] MCH 28.8 26.7 - 33.6 pg 01/22/2024 6:46 PM [facility] MCHC 36.1 31.7 - 36.3 g/dL 01/22/2024 6:46 PM [facility] RDW-CV 14.2 11.3 - 14.8 % 01/22/2024 6:46 PM [facility] Platelet Count 42(L) 150 - 420 x10E9/L 01/22/2024 6:46 PM [facility] MPV 8.7 7.8 - 11.4 fL 01/22/2024 6:46 PM [facility] Blood BLOOD SPECIMEN / Unknown Venipuncture / Unknown 01/22/2024 6:04 PM CDT 01/22/2024 6:10 PM CDT Kate Price DO LAB - HEMATOLOGY ORD ERABLES [address] [address], [facility] [phone] * TRANSFUSE PLATELET PHERESIS UNIT(S) (01/22/2024 5:36 PM CDT) Kate Price DO NURSING - BLOOD PROD TRANSFUSION * (ABNORMAL) HEMOGLOBIN (01/20/2024 11:53 AM CDT) Hemoglobin 8.2(L) 11.9 - 15.8 g/dL 01/20/2024 12:12 PM CDT [facility] Blood BLOOD SPECIMEN / Unknown Venipuncture / Unknown 01/20/2024 11:53 AM CDT 01/20/2024 12:07 PM CDT Kate [place] DO LAB - HEMATOLOGY ORD ERABLES [address] [address], [facility] [phone] * TRANSFUSE RED BLOOD CELL LEUKOREDUCED UNIT(S) (01/20/2024 11:21 AM CDT) Kate [place] DO NURSING - BLOOD PROD TRANSFUSION * TRANSFUSE PLATELET PHERESIS UNIT(S) (01/20/2024 9:21 AM CDT) Kate [place] DO NURSING - BLOOD PROD TRANSFUSION * (ABNORMAL) C-REACTIVE PROTEIN (01/20/2024 3:37 AM CDT) C-Reactive Protein 13.5(H) <=0.5 mg/dL 01/20/2024 4:13 AM CDT [facility] Blood BLOOD SPECIMEN / Unknown Venipuncture / Unknown 01/20/2024 3:37 AM CDT 01/20/2024 3:46 AM CDT Kate [place] DO LAB - CHEMISTRY ORDE RABLES [address] [address], [place] [phone] * CT CHEST PE W ABD PELVIS [...] > Dictated by Partha Ryan MD (president and cmo). I, Feliciano Ordaz MD have personally reviewed and interpreted this examination/study. > Interpreting Provider: Feliciano Ordaz MD on 01/19/2024 11:59 PM Narrative 01/19/2024 11:59 PM CDT PROCEDURE: ??CT CHEST PE W ABD PELVIS W CONT, DATE/TIME OF EXAM: ??01/19/2024 9:27 PM, LOCATION ??[facility] INDICATION: C92.00: Acute myeloid leukemia not [...] CONT, DATE/TIME OF EXAM:01/19/2024 9:27 PM, LOCATION [facility] INDICATION: C92.00: Acute myeloid leukemia not [...] > Dictated by Partha Ryan MD (president and cmo). I, Feliciano Ordaz MD have personally reviewed and interpreted this examination/study. > Interpreting Provider: Feliciano Ordaz MD on 411:59 [address] DO [address] ORDERABLES * PATHOLOGY PERIPHERAL SMEAR REVIEW (01/19/2024 5:13 PM CDT) Only the most recent of4 resultswithin the time period is included. Path Review Confirmed 01/20/2024 3:59 PM CDT [facility] Blood BLOOD SPECIMEN / Unknown Venipuncture / Unknown 01/19/2024 5:13 PM CDT 01/19/2024 5:29 PM CDT Narrative [facility] - 01/20/2024 3:59 PM CDT Final Diagnosis: [...] Price DO LAB - PATHOLOGY/CYTO LOGY ORDERABLES [address] [address], [facility] [phone] * TRANSFUSE PLATELET PHERESIS UNIT(S) (01/19/2024 11:16 AM CDT) Rossana Jay ORACLE WMS CONSULTANT-MIRROR INSTALLER NURSING - BLOOD PROD TRANSFUSION * CULTURE BLOOD (01/19/2024 11:11 AM CDT) Only the most recent of3 resultswithin the time period is included. Culture No growth day 5 DAVID 01/24/2024 2:31 PM CDT [facility] Blood PERIPHERAL BLOOD / Unknown Venipuncture / Unknown 01/19/2024 11:11 AM CDT 01/19/2024 11:26 AM CDT [facility] - [facility] O RDERABLES Performing Organization Address City/[facility]/ZIP Co de Phone Number [facility]CRO[facility]OLOG[facility] [address] [place] [address], [facility] [phone] * EKG 12-LEAD (01/19/2024 10:37 AM CDT) Only the most recent of4 resultswithin the time period is included. Ventricular Rate 130 BPM [facility] MUSE Atrial Rate 130 BPM [facility] P-R Interval 132 ms [facility] QRS Duration ms 68 ms [facility] Q-T Interval ms 298 ms [facility] MUSE QTC Calculation (Bezet) 438 ms [facility] MUSE Calculated P [place] 56 degrees [facility] MUSE Calculated R [place] 47 degrees [facility] MUSE Calculated T [place] 13 degrees [facility] MUSE Interpretation EKG SINUS TACHYCARDIA WITH FREQUENT PREMATURE VENTRICULAR COMPLEXES NONSPECIFIC T WAVE ABNORMALITY ABNORMAL ECG NO PREVIOUS ECGS AVAILABLE Confirmed by JULIA HERBERT [facility] ([id number]) on 01/25/2024 9:00:56 PM [facility] MUSE 01/19/2024 10:3 7 AM CDT 01/25/2024 9:00 PM CDT Rossana Felicianocarol [facility] ECG ORDERABLES Performing Organization Address [facility] Co de Phone Number [facility] MUSE * VAS BILATERAL VENOUS DUPLEX [...] > Dictated by Jeremy Valdes MD (president and cmo). > Dictated by Jeremy Valdes MD (Quality Assurance Tester) 01/16/2024 2:09 PM IArlyn MD have personally [...] > Dictated by Jeremy Valdes MD (president and cmo). > Dictated by Jeremy Valdes MD (Quality Assurance Tester) 01/16/2024 2:09 PM IArlyn MD have personally reviewed and interpreted this examination/study. > Interpreting Provider: Arlyn Gannon MD on 01/16/2024 4:49 PM Britni Winston PA-C CT ORDERABLES * TRANSFUSE PLATELET PHERESIS UNIT(S) (01/16/2024 12:49 PM CDT) Britni CUIC NURSING - BLOOD PROD TRANSFUSION * TRANSFUSE PLATELET PHERESIS UNIT(S) (01/14/2024 1:01 PM CDT) Kathryn Gomez ORACLE WMS CONSULTANT-MIRROR INSTALLER NURSING - BLOOD PROD TRANSFUSION * TRANSFUSE RED BLOOD CELL LEUKOREDUCED UNIT(S) (01/12/2024 1:32 PM CDT) Britni CHANDLER-C NURSING - BLOOD PROD TRANSFUSION * TRANSFUSE PLATELET PHERESIS UNIT(S) (01/09/2024 10:39 AM CDT) Britni CHANDLER-C NURSING - BLOOD PROD TRANSFUSION * HCG BETA BLOOD QUANTITATIVE (01/09/2024 8:25 AM CDT) [facility] Beta-hCG Total Quantitative <3 mIU/mL 01/09/2024 9:39 AM CDT [facility] Comment: HCG Numeric Result Interpretation: [...] CDT Britni Winston PA-C LAB - CHEMISTRY OJN NAIDU [facility] [address] [place] [address], [facility] [phone] * TRANSFUSE PLATELET PHERESIS UNIT(S) (01/07/2024 11:52 AM CDT) Britni Winston PA-C NURSING - BLOOD PROD TRANSFUSION * TRANSFUSE PLATELET PHERESIS UNIT(S) (01/07/2024 11:01 AM CDT) Britni Winston PA-C NURSING - BLOOD PROD TRANSFUSION * TRANSFUSE RED BLOOD CELL LEUKOREDUCED UNIT(S) (01/04/2024 1:38 PM CDT) Marshall Apodaca APRN-MIRROR INSTALLER NURSING - BLOOD PROD TRANSFUSION * GLUCOSE - POINT OF CARE (01/04/2024 1:12 PM CDT) Only the most recent of74 resultswithin the time period is included. Glucose WB/POC 85 70 - 115 mg/dL 01/04/2024 3:02 PM CDT [facility] Specimen Type Cap Fingerstick 2023 3:02 PM CDT [facility] Blood BLOOD SPECIMEN / Unknown 01/04/2024 1:12 PM CDT 01/04/2024 3:02 PM CDT Mauro Canales MD LAB - POINT OF CARE ORDERABLES Performing Organization Address [facility]/ZIP Co de Phone Number [facility] [address] [place] [address], [facility] [phone] * (ABNORMAL) HEMOGLOBIN A1C (01/02/2024 6:08 AM CDT) Only the most recent of2 resultswithin the time period is included. Hemoglobin A1c 6.8(H) <=5.6 % 01/02/2024 9:40 AM CDT [facility] Estimated Average Glucose 148 mg/dL 01/02/2024 9:40 AM CDT [facility] Comment: HbA1c Interpretation: Normal : < 5.7% Pre-diabetes: 5.7-6.4% Diabetes: Equal to or greater than 6.5% Test results diagnostic of diabetes should be repeated for confirmation. Treatment target values recommended by ADA and other clinical organizations should be used to evaluate metabolic control in patients. Reference: [place] Diabetes Association, Standards of Care in Diabetes -2020 In patients 70 years and older consider HbA1c target range of 7.0-7.5% (Reference: Fede Jimenez et al. BENNY. 2012) The Sebia assay for the measurement of HbA1c is a National Glycohemoglobin Standardization Program (NGSP) certified method. Blood BLOOD SPECIMEN / Unknown Venipuncture / Unknown 01/02/2024 6:08 AM CDT 01/02/2024 6:17 AM CDT Rogers Cazares PA-C LAB - CHEMISTRY ORD ERABLES [address] [address], [facility] [phone] * CT HEAD WO CONTRAST (01/01/2024 10:45 AM CDT) Only the most recent of4 resultswithin the time period is included. Anatomical Region Laterality Modality Head Computed Tomogra phy 01/01/2024 10:4 7 AM CDT Impressions 01/01/2024 11:21 AM CDT IMPRESSION: 1. No acute intracranial process. Report dictated by Haleigh Mosquera MD (president and cmo). I, Romie Sanchez MD have personally reviewed and interpreted this examination/study. > Interpreting Provider: Romie Sanchez MD on 01/01/2024 11:21 AM Narrative 01/01/2024 11:21 AM CDT PROCEDURE: ??CT HEAD WO CONTRAST, DATE/TIME OF EXAM: ??01/01/2024 10:45 AM, LOCATION ??[facility] INDICATION: W19.XXXA: Fall, initial encounter ADDITIONAL [...] DATE/TIME OF EXAM: 01/01/2024 10:45 AM, LOCATION [facility] INDICATION: W19.XXXA: Fall, initial encounter ADDITIONAL [...] process. Report dictated by Haleigh Mosquera MD (president and cmo). I, Romie Sanchez MD have personally reviewed [...] - 420 x10E9/L 12/30/2023 12:13 PM CDT [facility] Blood BLOOD SPECIMEN / Unknown Venipuncture / Unknown 12/30/2023 11:04 AM CDT 12/30/2023 11:08 AM CDT Lupe LOPEZ LAB - HEMATOLOG Y ORDERABLES [facility] [address] [place] [address], [facility] [phone] * TRANSFUSE PLATELET PHERESIS UNIT(S) (12/22/2023 12:03 [...] DATE/TIME OF EXAM: ??12/19/2023 10:32 AM, LOCATION ??[facility] INDICATION: R06.2: Wheezing ADDITIONAL CLINICAL INFORMATION: Ordering Provider Reason For Exam: ??wheezing COMPARISON: Chest x-ray 09/28/2023 FINDINGS/IMPRESSION: Right IJ approach tunneled central venous catheter that terminates at the superior cavoatrial junction. Minimal interstitial prominence in the lung bases, substantially decreased from 09/28/2023. Findings could be technical service representative of small airways disease. Otherwise, no confluent consolidation, pleural effusion, or pneumothorax. Heart size is normal. Superior mediastinal contours are within normal limits. No acute osseous abnormality. > Dictated by Agustín Upton DO (Quality Assurance Tester) Ludivina Bartholomew MD have personally reviewed and interpreted this examination/study. > Interpreting Provider: Ludivina Hayward MD on 12/19/2023 11:18 AM Procedure Note Ludivina Hayward MD - 12/19/2023 PROCEDURE: XR CHEST 1VW PORTABLE, DATE/TIME OF EXAM: 12/19/2023 10:32AM, LOCATION [facility] INDICATION: R06.2: Wheezing ADDITIONAL CLINICAL INFORMATION: Ordering Provider Reason For Exam: wheezing COMPARISON: Chest x-ray 09/28/2023 FINDINGS/IMPRESSION: Right IJ approach tunneled central venous catheter that terminates atthe superior cavoatrial junction. Minimal interstitial prominence in the lung bases, substantiallydecreased from 09/28/2023. Findings could be technical service representative of small airwaysdisease. Otherwise, no confluent consolidation, pleural effusion, orpneumothorax. Heart size is normal. Superior mediastinal contours are within normal limits. No acute osseous abnormality. > Dictated by Agustín Upton DO (Quality Assurance Tester) Ludivina Bartholomew MD have personally reviewed and interpreted this examination/study. > Interpreting Provider: Ludivina Hayward MD on 12/19/2023 11:18 AM Cori Aguirreannika ORACLE WMS CONSULTANT-[facility] DIAGNOSTIC IMAGING ORDERABLES * RESPIRATORY PANEL WITH SARS-COV-2 BY PCR ([facility]) (12/19/2023 9:18 AM CDT) Only the most recent of3 resultswithin the time period is included. Adenovirus PCR Not detected Not detected 12/19/2023 3:31 PM CDT [facility] Coronavirus 229E PCR Not detected Not detected 12/19/2023 3:31 PM CDT [facility] Coronavirus HKU1 PCR Not detected Not detected 12/19/2023 3:31 PM CDT [facility] Coronavirus NL63 PCR Not detected Not detected 12/19/2023 3:31 PM CDT [facility] Coronavirus OC43 PCR Not detected Not detected 12/19/2023 3:31 PM CDT [facility] COVID-19 PCR Not detected Not detected 12/19/2023 3:31 PM CDT [facility] Human Metapneumovirus PCR Not detected Not detected 12/19/2023 3:31 PM CDT [facility] Human Rhinovirus/Enterov irus PCR Not detected Not detected 12/19/2023 3:31 PM CDT [facility] Influenza A PCR Not detected Not detected 12/19/2023 3:31 PM CDT [facility] Influenza B PCR Not detected Not detected 12/19/2023 3:31 PM CDT [facility] Parainfluenza Virus 1 PCR Not detected Not detected 12/19/2023 3:31 PM CDT [facility] Parainfluenza Virus 2 PCR Not detected Not detected 12/19/2023 3:31 PM CDT [facility] Parainfluenza Virus 3 PCR Not detected Not detected 12/19/2023 3:31 PM CDT [facility] Parainfluenza Virus 4 PCR Not detected Not detected 12/19/2023 3:31 PM CDT [facility] Respiratory Syncytial Virus PCR Not detected Not detected 12/19/2023 3:31 PM CDT [facility] Bordetella parapertussis PCR Not detected Not detected 12/19/2023 3:31 PM CDT [facility] Bordetella pertussis PCR Not detected Not detected 12/19/2023 3:31 PM CDT [facility] Chlamydia pneumoniae PCR Not detected Not detected 12/19/2023 3:31 PM CDT [facility] Mycoplasma pneumoniae PCR Not detected Not detected 12/19/2023 3:31 PM CDT [facility] Microbiology SPECIMEN FROM NASOPHARYNGEAL STRUCTURE / Unknown Collection / Unknown 12/19/2023 9:18 AM CDT 12/19/2023 9:27 AM CDT [facility] MICROBIOLOGY - 12/19/2023 3:31 PM CDT This nucleic amplification assay has received FDA authorization via the [employer] Pathway. 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 > Dictated by Aakash Mora MD (Quality Assurance Tester) 12/17/2023 11:53 AM I, Julius Tapia MD have personally reviewed and interpreted this examination/study. 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 > Dictated by Aakash Mora MD (Quality Assurance Tester) 12/17/2023 11:53 AM I, Julius Tapia MD [...] UNIT(S) (12/10/2023 11:50 AM CDT) Esperanza Pemberton ORACLE WMS CONSULTANT-MIRROR INSTALLER NURSING - BLOOD PROD TRANSFUSION * TRANSFUSE PLATELET PHERESIS UNIT(S) (12/08/2023 12:00 PM CDT) Lupe Chamorro ORACLE WMS CONSULTANT-MIRROR INSTALLER NURSING - BLOOD PROD TRANSFUSION * TRANSFUSE RED BLOOD CELL LEUKOREDUCED UNIT(S) (12/06/2023 7:21 AM CDT) Seth Cali MD NURSING - BLOOD PROD TRANSFUSION * (ABNORMAL) URINALYSIS W/MICROSCOPIC REFLEX TO CULTURE (12/01/2023 8:52 AM CDT) Only the most recent of2 resultswithin the time period is included. Color UA Yellow Straw, Yellow 12/01/2023 9:14 AM CDT [facility] Clarity UA Slt Cloudy(A) Clear 12/01/2023 9:14 AM CDT [facility] Specific [place] UA 1.023 1.005 - 1.030 12/01/2023 9:14 AM CDT [facility] pH UA 5.0 5.0 - 8.0 pH 12/01/2023 9:14 AM CDT [facility] Protein UA 2+(A) Negative 12/01/2023 9:14 AM CDT [facility] Glucose UA Negative Negative 12/01/2023 9:14 AM CDT [facility] Ketone UA Negative Negative 12/01[facility]2023 [facility] Bilirubin UA Negative Negative 12/01/2023 9:14 AM [facility] Blood UA 1+(A) Negative 12/01/2023 9:14 AM [facility] Nitrite UA Negative Negative 12/01/2023 9:14 AM [facility] Leukocyte Esterase 1+(A) Negative 12/01/2023 9:14 AM [facility] Urobilinogen UA Negative Negative mg/dL 12/01/2023 9:14 AM T [facility] RBC UA 3-5 None Seen, 0-2, 3-5 /HPF 12/01/2023 9:14 AM T [facility] WBC UA 21-50(A) None Seen, 0-5 /HPF 12/01/2023 9:14 AM [facility] Squamous Epithelial Cells UA 0-2 None Seen, 0-2, 3-5 /HPF 12/01/2023 9:14 AM [facility] Mucus UA 1+ /LPF 12/01/2023 9:14 AM [facility] Urine URINE SPECIMEN OBTAINED BY CLEAN CATCH PROCEDURE / Unknown Collection / Unknown 12/01/2023 8:52 AM CDT 12/01/2023 9:01 AM CDT Narrative [facility] - 12/01/2023 9:14 AM CDT Lab Status, Culture Reflex Indicated. Hussain Carias MD LAB - URINALYSIS ORD ERABLES [facility] [address] [place] [address], [facility] [phone] * CULTURE URINE (12/01/2023 8:52 AM CDT) Culture Urine 50,000-100,000 CFU/mL urogenital neris 12/02/2023 11:07 PM CDT [facility] Urine URINE SPECIMEN OBTAINED BY CLEAN CATCH PROCEDURE / Unknown Collection / Unknown 12/01/2023 8:52 AM CDT 12/01/2023 9:14 AM CDT Hussain Carias MD LAB - MICROBIOLOGY O RDERABLES Performing Organization Address [facility] Co de Phone Number [facility] MICRO[facility] [address] [place] [address], [facility] [phone] * TSH (11/28/2023 8:37 AM CDT) TSH 1.840 0.350 - 4.940 uIU/mL 11/28/2023 10:03 AM CDT [facility] Blood BLOOD SPECIMEN / Unknown Venipuncture / Unknown 11/28/2023 8:37 AM CDT 11/28/2023 8:46 AM CDT Britni Winston PA-C LAB - CHEMISTRY JON NAIDU Performing Organization Address [facility] Co de Phone Number [facility] [address] [place] [phone], [place] [phone] * T4 FREE (11/28/2023 8:37 AM CDT) T4 Free 0.9 0.7 - 1.5 ng/dL 11/28/2023 10:03 AM CDT [facility] Blood BLOOD SPECIMEN / Unknown Venipuncture / Unknown 11/28/2023 8:37 AM CDT 11/28/2023 8:46 AM CDT Britni Winston PA-C LAB - CHEMISTRY JON NAIDU Performing Organization Address [facility] Co de Phone Number [facility] [address] [place] [address], [place] [phone] * CT FACIAL BONES WO CONTRAST (11/24/2023 [...] DATE/TIME OF EXAM: ??11/24/2023 2:11 PM, LOCATION ??[facility] 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 in [...] CONTRAST, DATE/TIME OF EXAM: 42:11 PM, LOCATION [facility] 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 in [...] UNIT(S) (11/24/2023 12:28 PM CDT) Esperanza Pemberton APRN-MIRROR INSTALLER NURSING - BLOOD PROD TRANSFUSION * TRANSFUSE PLATELET PHERESIS UNIT(S) (11/24/2023 12:07 PM CDT) Esperanza Pemberton APRN-MIRROR INSTALLER NURSING - BLOOD PROD TRANSFUSION * TRANSFUSE PLATELET PHERESIS UNIT(S) (11/21/2023 12:55 PM CLOTHING CONSULTANT) Britni Winston PA-C NURSING - BLOOD PROD TRANSFUSION * TRANSFUSE PLATELET PHERESIS UNIT(S) (11/19/2023 11:38 AM CLOTHING CONSULTANT) Britni Winston PA-C NURSING - BLOOD PROD TRANSFUSION * TRANSFUSE RED BLOOD CELL LEUKOREDUCED UNIT(S) (11/17/2023 2:10 PM CLOTHING CONSULTANT) Paula Carrillo APRN-MIRROR INSTALLER NURSING - BLOOD AK OD TRANSFUSION * TRANSFUSE PLATELET PHERESIS UNIT(S) (11/14/2023 3:44 PM CLOTHING CONSULTANT) Britni Winston PA-C NURSING - BLOOD PROD TRANSFUSION * TRANSFUSE PLATELET PHERESIS UNIT(S) (11/10/2023 3:56 PM CLOTHING CONSULTANT) Paula Carrillo ORACLE WMS CONSULTANT-MIRROR INSTALLER NURSING - BLOOD AK OD TRANSFUSION * TRANSFUSE RED BLOOD CELL LEUKOREDUCED UNIT(S) (11/06/2023 2:59 PM CLOTHING CONSULTANT) Aakash Pierson MD NURSING - BLOOD PROD TRANSFUSION * TRANSFUSE RED BLOOD CELL LEUKOREDUCED UNIT(S) (11/03/2023 12:50 PM CLOTHING CONSULTANT) Cori Hill ORACLE WMS CONSULTANT-MIRROR INSTALLER NURSING - B LOOD PROD TRANSFUSION * TRANSFUSE RED BLOOD CELL LEUKOREDUCED UNIT(S) (10/20/2023 5:40 PM CLOTHING CONSULTANT) Britni Winston PA-C NURSING - BLOOD PROD TRANSFUSION * TRANSFUSE PLATELET PHERESIS UNIT(S) (10/20/2023 4:04 PM CLOTHING CONSULTANT) Britni Winston PA-C NURSING - BLOOD PROD TRANSFUSION * TRANSFUSE RED BLOOD CELL LEUKOREDUCED UNIT(S) (10/14/2023 3:30 PM CLOTHING CONSULTANT) Rossanastanislaw Jay ORACLE WMS CONSULTANT-MIRROR INSTALLER NURSING - BLOOD PROD TRANSFUSION * (ABNORMAL) POTASSIUM WHOLE BLD (10/13/2023 9:40 PM CLOTHING CONSULTANT) [facility] Potassium Whole Blood 2.7(L) 3.5 - 5.5 mmol/L 10/13/2023 9:50 PM CLOTHING CONSULTANT [facility] Blood WHOLE BLOOD SPECIMEN / Unknown Venipuncture / Unknown 10/13/2023 9:40 PM CLOTHING CONSULTANT 10/13/2023 9:44 PM CLOTHING CONSULTANT Frederick Fam MD LAB - CHEMISTRY JON NAIDU [facility] Organization Address City/State/ZIP Co de Phone Number [address] [address], [facility] [phone] * TRANSFUSE PLATELET PHERESIS UNIT(S) (10/13/2023 8:40 PM CLOTHING CONSULTANT) Laureen Gupta MD NURSING - BLOOD PROD TRANSFUSION * DOLL AUTO VISUAL FIELD EXTENDED (10/13/2023 3:21 PM CLOTHING CONSULTANT) Anatomical Region Laterality Modality Head External-Camera Photography Narrative 10/28/2023 7:23 AM CLOTHING CONSULTANT Images from the original result were not [...] OPTIC NERVE ANALYSIS OCT (10/13/2023 3:21 PM CLOTHING CONSULTANT) Anatomical Region Laterality Modality Head External-Camera Photography Narrative 10/28/2023 7:23 AM CLOTHING CONSULTANT Images from the original result were not included. OCT: average RNFL of ONH: 153 OD, 134 OS improved from prior of 175 OD 165 OS Nilam Mayers MD OPHTHALMOLOGY SCHE D ORD W PACS * TRANSFUSE RED BLOOD CELL LEUKOREDUCED UNIT(S) (10/09/2023 4:16 PM CLOTHING CONSULTANT) French Novoa MD NURSING - BLOOD PROD TRANSFUSION * (ABNORMAL) BLOOD GASES ROEMRO + COOX PANEL (10/09/2023 6:04 AM CLOTHING CONSULTANT) pH Venous 7.36 7.32 - 7.42 pH 10/09/2023 6:18 AM [facility] pO2 Venous 74(H) 35 - 40 mmHg 10/09/2023 6:18 AM [facility] pCO2 Venous 26(L) 40 - 50 mmHg 10/09/2023 6:18 AM [facility] HCO3 Venous 14.7(L) 20 - 30 mmol/L 10/09/2023 6:18 AM [facility] Base Excess Venous -9.7(L) -2.0 - 2.0 mmol/L 10/09/2023 6:18 AM [facility] Oxyhemoglobin Venous 95.3 % 09/16 6:18 AM [facility] Deoxyhemoglobin (HHB) Venous % 2.1 % 10/09/2023 6:18 AM [facility] Methemoglobin <0.8 0.0 - 2.0 % 10/09/2023 6:18 AM [facility] Carboxyhemoglobin 2.2(H) 0.0 - 2.0 % 2023 6:18 AM [facility] O2 Content Venous 10.0 Interpret within clinical context ml/dL 10/09/2023 6:18 AM [facility] Hemoglobin by COOX 7.4(L) 12.0 - 15.6 g/dL 10/09/2023 6:18 AM [facility] O2 Saturation Venous 98 >=70 % 09/16 6:18 AM [facility] FI O2 Mixed Venous 21.0 % 2023 6:18 AM [facility] Blood BLOOD SPECIMEN / Unknown Venipuncture / Unknown 10/09/2023 6:04 AM CLOTHING CONSULTANT 10/09/2023 6:15 AM [facility] - 10/09/2023 6:18 AM [facility] Carboxyhemoglobin Normal Concentration: Non-smokers: 0-2%; Smokers: 0-9%; Toxic: >20% French Novoa MD LAB - BLOOD GASES OR DERABLES Performing Organization Address City/State/[facility] Co de Phone Number [facility] [address] [place] [phone], [facility] [phone] * FIBRINOGEN ACTIVITY (10/08/2023 9:52 PM [facility]) Only the most recent of19 resultswithin the time period is included. Fibrinogen Clauss 211 200 - 400 mg/dL 10/08/2023 10:15 PM [facility] Blood BLOOD SPECIMEN / Unknown Venipuncture / Unknown 10/08/2023 9:52 PM [facility] 10/08/2023 9:54 PM [facility] Umair Tan MD LAB - COAGULATION OR DERABLES [id number] [place] [address], [facility] [phone] * [place] LUMBAR PUNCT FOR CHEMO INJ (10/06/2023 3:30 PM [facility]) Only the most recent of2 resultswithin the time period is included. Anatomical Region Laterality Modality Spine Radiographic Ammy ging 10/06/2023 3:19 PM CLOTHING CONSULTANT Impressions 10/06/2023 4:30 PM CLOTHING CONSULTANT IMPRESSION: 1. Successful lumbar puncture under fluoroscopic guidance at level L3-4. 2. Successful injection of intrathecal chemotherapeutic agent. 3. Successful measurement of opening pressure: 31 cm of water in the prone position. Report dictated by Sivakumar Garrido DO (Quality Assurance Tester). I, Sara Huitron MD have personally reviewed and interpreted this examination/study. 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 Under intermittent fluoroscopic guidance, q48-iatus 5 inch spinal needle was inserted into [...] position. Report dictated by Sivakumar Garrido DO (Quality Assurance Tester). I, Sara Huitron MD have personally reviewed and interpreted this examination/study. > Interpreting Provider: Sara Huitron MD on 10/06/2023 4:30 PM Umair Tan MD FLUOROSCOPY ORDERABL ES * FLOW CYTOMETRY BODY FLUID (10/06/2023 3:24 PM CLOTHING CONSULTANT) Only the most recent of2 resultswithin the time period is included. Case Report Flow Cytometry ?Case: [id number] ? Authorizing Provider: ??Umair Tan MD ?Collected: ? 10/06/2023 03:24 PM ? Ordering Location: ? [facility] AC[facility] ? Received: ?10/07/2023 12:52 PM ? Pathologist: ? Meagan Lunsford MD ? Specimen: ?CSF Tube 3 ? 10/07/2023 2:[address] [facility] Final Diagnosis Cerebrospinal fluid, flow cytometry: - Too few hematopoietic cells for flow cytometry 10/07/2023 2:[address] [facility] Flow Cytometry Interpretation A cytospin prepared from the flow cytometry specimen has been reviewed for quality technician purposes. 10/07/2023 2:[address] [facility] Flow Cytometry Results Too few hematopoietic cells for flow cytometric analysis. 10/07/2023 2:[address] [facility] Client Specimen ID # [id number] 10/07/2023 2:[address] [facility] Reason for test Acute leukemia of unspecified cell type not having achieved remission ([facility]) 10/07/2023 2:[address] [facility] Pathologist Location at [facility] 10/07/2023 2:[address] [facility] Disclaimer Test performed at [facility], [address] [place] [address], [id number]. *The established laboratory minimum viability is 70%. [...] high complexity clinical testing. 10/07/2023 2:[address] [facility] Embedded Images 2:[address] [facility] Fluid CEREBROSPINAL FLUID SPECIMEN / Unknown Collection / Unknown 10/06/2023 3:24 PM CLOTHING CONSULTANT 10/07/2023 12:52 PM CLOTHING CONSULTANT Umair Tan MD LAB - PATHOLOGY/CYTO LOGY ORDERABLES [facility] [address] [place] [address], [facility] [phone] * HOLD SPECIMEN CSF (10/06/2023 3:24 PM CLOTHING CONSULTANT) Pathologist [facility] Specimen Hold Put in CSF Hold Specimen Rack in Processing Ref 10/06/2023 4:28 PM CLOTHING CONSULTANT [facility] Cerebral spinal fluid CEREBROSPINAL FLUID SPECIMEN / Unknown Collection / Unknown 10/06/2023 3:24 PM CLOTHING CONSULTANT 10/06/2023 4:27 PM CLOTHING CONSULTANT Umair Tan MD LAB - BODY FLUID ORD ERABLES Performing Organization Address [facility]/ZIP Co de Phone Number [facility] [address] [place] [address], [facility] [phone] * MENINGITIS/ENCEPHALITIS PANEL CSF (10/06/2023 3:24 PM CLOTHING CONSULTANT) Pathologist [facility] Escherichia coli K1 Not detected Not detected 10/06/2023 9:03 PM CLOTHING CONSULTANT [facility] Haemophilus influenzae Not detected Not detected 10/06/2023 9:03 PM CLOTHING CONSULTANT [facility] Listeria monocytogenes Not detected Not detected 10/06/2023 9:03 PM CLOTHING CONSULTANT [facility] Neisseria meningitis Not detected Not detected 10/06/2023 9:03 PM CLOTHING CONSULTANT [facility] Streptococcus agalactiae (Group B) Not detected Not detected 10/06/2023 9:03 PM CLOTHING CONSULTANT [facility] Streptococcus pneumoniae Not detected Not detected 10/06/2023 9:03 PM CLOTHING CONSULTANT [facility] Cytomegalovirus Not detected Not detected 10/06/2023 9:03 PM CLOTHING CONSULTANT [facility] Enterovirus Not detected Not detected 10/06/2023 9:03 PM CLOTHING CONSULTANT [facility] Herpes simplex Virus 1 Not detected Not detected 10/06/2023 9:03 PM CLOTHING CONSULTANT [facility] Herpes simplex Virus 2 Not detected Not detected 10/06/2023 9:03 PM CLOTHING CONSULTANT [facility] Human Herpesvirus 6 Not detected Not detected 10/06/2023 9:03 PM CLOTHING CONSULTANT [facility] Human Parechovirus Not detected Not detected 10/06/2023 9:03 PM CLOTHING CONSULTANT [facility] Varicella zoster Virus Not detected Not detected 10/06/2023 9:03 PM [facility] Cryptococcus neoformans/gattii Not detected Not detected 10/06/2023 9:03 PM [facility] Microbiology CEREBROSPINAL FLUID SPECIMEN / Unknown Collection / Unknown 10/06/2023 3:24 PM CLOTHING CONSULTANT 10/06/2023 4:48 PM CLOTHING CONSULTANT Narrative [facility] - 10/06/2023 9:03 PM CLOTHING CONSULTANT Meningitis/Encephalitis PCR CSF Panel performed by [employer] FilmArray multiplex PCR. A negative FilmArray ME Panel result does not exclude the possibility of DRILLER PORTABLE infection and should not be used as [...] information. Umair Tan MD LAB - MICROBIOLOGY Wen QUINTEROS Performing Organization Address City/[facility] Co de Phone Number [facility] [address] [place] [address], [facility] [phone] * CULTURE CSF+GRAM STAIN (10/06/2023 3:24 PM CLOTHING CONSULTANT) Pathologist [facility] Culture No growth DAVID 10/13/2023 6:22 AM [facility] Gram Stain No polymorphonuclear cells 10/13/2023 6:22 AM [facility] Gram Stain No organisms seen 024 6:22 AM [facility] Cerebral spinal fluid CEREBROSPINAL FLUID SPECIMEN / Unknown Collection / Unknown 10/06/2023 3:24 PM CLOTHING CONSULTANT 10/06/2023 4:18 PM CLOTHING CONSULTANT Umair Tan MD LAB - MICROBIOLOGY O ALDAIR Performing Organization Address City/[facility] Co de Phone Number [facility] [address] [place] [address], [facility] [phone] * (ABNORMAL) CELL COUNT W DIFFERENTIAL CSF (10/06/2023 3:24 PM CLOTHING CONSULTANT) Pathologist [facility] Tube Number [id number] 10/06/2023 4:35 PM [facility] Xanthochromia ABSENT ABSENT 10/06/2023 4:35 PM [facility] CSF Appearance CLEAR 10/06/2023 4:35 PM [facility] CSF Color COLORLESS 10/06/2023 4:35 PM [facility] Total Nucleated Cells CSF 1 <=5 x10E6/L 10/06/2023 4:35 PM [facility] RBC Count CSF 6(H) <1 x10E6/L 10/06/2023 4:35 PM [facility] Cerebral spinal fluid CEREBROSPINAL FLUID SPECIMEN / Unknown Collection / Unknown 10/06/2023 3:24 PM CLOTHING CONSULTANT 10/06/2023 4:16 PM CLOTHING CONSULTANT Umair Tan MD LAB - BODY FLUID ORD ERABLES Performing Organization Address City/[facility]/ZIP Co de Phone Number [address] [address], [facility] [phone] * PROTEIN CSF (10/06/2023 3:24 PM CLOTHING CONSULTANT) Protein CSF 31 15 - 45 mg/dL 10/06/2023 4:52 PM [facility] Cerebral spinal fluid CEREBROSPINAL FLUID SPECIMEN / Unknown Collection / Unknown 10/06/2023 3:24 PM CLOTHING CONSULTANT 10/06/2023 4:18 PM CLOTHING CONSULTANT Umair Tan MD LAB - BODY FLUID ORD ERABLES [address] [address], [place] [phone] * GLUCOSE CSF (10/06/2023 3:24 PM CLOTHING CONSULTANT) Glucose CSF 58 40 - 70 mg/dL 10/06/2023 4:52 PM [facility] Cerebral spinal fluid CEREBROSPINAL FLUID SPECIMEN / Unknown Collection / Unknown 10/06/2023 3:24 PM CLOTHING CONSULTANT 10/06/2023 4:18 PM CLOTHING CONSULTANT Umair Tan MD LAB - BODY FLUID ORD ERABLES Performing Organization Address [facility]/State/ZIP Co de Phone Number [facility] [address] [place] [address], [facility] [phone] * CYTOLOGY NON-STOGY MAKER PANEL (STL) (10/06/2023 3:23 PM CLOTHING CONSULTANT) Only the most recent of2 resultswithin the time period is included. Case Report Medical Cytology Report ? Case: [id number] ? Authorizing Provider: ??Umair Tan MD ?Collected: ? 10/06/2023 03:23 PM ? Ordering Location: ? [facility] AC[facility] ? Received: ?10/07/2023 12:56 PM ? Pathologist: ? Ru Kramer MD ? Specimen: ?CSF Tube 4 ? 10/08/2023 3:43 PM CLOTHING CONSULTANT [facility] Specimen Adequacy Adequate cellularity for evaluation. 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 10/08/2023 3:[address] [facility] Gross Description 1 diff-quik stained cytospin slide from 1cc clear fluid 10/08/2023 3:[address] [facility] Microscopic Description Clean specimen. Microscopic examination substantiates the final diagnosis. 10/08/2023 3:[address] [facility] Pathologist Location at [facility] 10/08/2023 3:[address] [facility] Disclaimer The performance characteristics of all immunohistochemical and indirect immunofluorescence stains (if any) cited in this report were determined by the Histopathology Laboratory of [facility]. Some of these tests rely on the use of analyte-specific reagents and are subject to specific labeling requirements by the US Food and Drug Administration. Such tests were developed by the Histology Laboratory of [facility] and have not been cleared or approved [...] the attending (teaching) pathologist. 10/08/2023 3:[address] [facility] Embedded Images 10/08/2023 3:[address] [facility] Pathology/Cytolo gy CEREBROSPINAL FLUID SPECIMEN / Unknown Collection / Unknown 10/06/2023 3:23 PM CLOTHING CONSULTANT 10/07/2023 12:56 PM CLOTHING CONSULTANT Umair Tan MD LAB - PATHOLOGY/CYTO LOGY ORDERABLES [facility] [address] [place] [address], [facility] [phone] * MRI ANGIO BRAIN VENOUS WWO CONT (10/03/2023 12:31 AM CLOTHING CONSULTANT) Anatomical Region Laterality Modality Head Magnetic Resonan ce 10/03/2023 9:51 AM CLOTHING CONSULTANT Impressions 10/03/2023 10:24 AM CLOTHING CONSULTANT IMPRESSION: 1.Moderate or moderate to severe stenosis [...] 10/03/2023 10:24 AM Narrative 10/03/2023 10:24 AM CLOTHING CONSULTANT PROCEDURE: ??MRI ANGIO BRAIN VENOUS WWO CONT, DATE/TIME OF EXAM: ??10/03/2023 12:36 AM, LOCATION ??[facility] INDICATION: R90.89: Abnormal imaging of central [...] without evidence of thrombosis. Procedure Note Augustine Daviosn MD - 10/03/2023 PROCEDURE: MRI ANGIO BRAIN VENOUS WWO CONT, DATE/TIME OF EXAM:10/03/2023 12:36 AM, LOCATION [facility] INDICATION: R90.89: Abnormal imaging of central [...] AM Umair Tan MD MR ORDERABLES * XR ABD OBSTRUCTION SERIES 2VW (10/01/2023 7:39 PM CLOTHING CONSULTANT) Anatomical Region Laterality Modality Abdomen Radiographic Ammy ging 10/02/2023 8:25 AM CLOTHING CONSULTANT Impressions 10/02/2023 9:26 AM CLOTHING CONSULTANT IMPRESSION: Paucity of bowel gas. No pneumoperitoneum. Report dictated by Haleigh Mosquera MD (president and cmo). I, Fabien Yin DO have personally reviewed and interpreted this examination/study. > Interpreting Provider: Fabien Yin DO on 10/02/2023 9:26 AM Narrative 10/02/2023 9:26 AM CLOTHING CONSULTANT PROCEDURE: ??XR ABD OBSTRUCTION SERIES 2VW DATE/TIME [...] pneumoperitoneum. Report dictated by Haleigh Mosquera MD (president and cmo). I, Fabien Yin DO have personally reviewed and interpreted this examination/study. > Interpreting Provider: Fabien Yin DO on 10/02/2023 9:26 AM Kevin Houston MD DIAGNOSTIC IMAGING O RDERABLES * FISH AML PANEL BLOOD OR BM RFLX PML/BENY (10/01/2023 1:50 PM CLOTHING CONSULTANT) Only the most recent of2 resultswithin the time period is included. [facility] FISH AML Panel See Note Normal 10/08/2023 5:48 PM CLOTHING CONSULTANT [facility] ([facility]) Comment: Test Performed: Acute Myeloid Leukemia Panel by FISH (FISHAML) Specimen Type: Bone Marrow Indication for Testing: Acute Leukemia of Unspecified Cell Type RESULT Normal FISH Result inv(3) or t(3;3) RPN1::MECOM Fusion: ??not detected Deletion 5q: ??not detected Monosomy 7: ??not detected Deletion 7q: ??not detected t(8;21) RUNX1::FVUL2F9 Fusion: ??not detected 11p15 (NUP98) Rearrangement: ??not detected 11q23 (KMT2A) Rearrangement: ??not detected inv(16) or t(16;16) CBFB::MYH11 Fusion: ??not detected INTERPRETATION There was no evidence of RPN1::MECOM fusion due to 3q21/3q26.2 inversion or translocation, deletion 5q31, monosomy 7, deletion 7q31, RUNX1::FYMS0I0 fusion due to translocation (8;21)(q21.3;q22), 11p15 (NUP98) rearrangement, 11q23 KMT2A (MLL) rearrangement, or CBFB::MYH11 fusion due to either 16p13.1/16q22 inversion or translocation. This analysis was performed with the AML panel probes RPN1/MECOM, D5S23/EGR1, D7Z1/F7V494, RUNX1/IOMC3Z1 ([employer]), NUP98 and CBFB-MYH11 (Gongpingjia), and MLL (KMT2A) ([employer]). A total of 200 cells were scored for each probe. Cytogenomic Nomenclature (ISCN): nuc jung(RPN1,MECOM,D5S23,EGR1,D7Z1,Z4W106,GXUQ3P7,NUP98,KMT2A,MYH11,CBF B,RUNX1)x2[200' This result has been reviewed and approved by Kimberly Alaniz, Ph.D., [facility] INTERPRETIVE INFORMATION: AML Panel by FISH This test was developed and its performance characteristics determined by [facility]. It has not been cleared or approved by the US Food and Drug Administration. This test was performed in a CLIA certified laboratory and is intended for clinical purposes. EER AML Panel by FISH See Note 10/08/2023 5:48 PM CLOTHING CONSULTANT [facility] ([facility]) Comment: Authorized individuals can access the Floop Enhanced Report using the following link: [email or web address] Performed By: [facility] [address] [place] [address] Plug And Mold Finisher: Ebenezer Shipman MD, PhD CLIA Number: [id number] Other BONE MARROW SPECIMEN / Unknown Collection / Unknown 10/01/2023 1:50 PM CLOTHING CONSULTANT 10/01/2023 2:11 PM CLOTHING CONSULTANT Umair Tan MD LAB - PATHOLOGY/CYTO LOGY ORDERABLES [facility] ([facility]) [address] [id number], [facility] * FLOW CYTOMETRY BONE MARROW (10/01/2023 1:50 PM CLOTHING CONSULTANT) Only the most recent of4 resultswithin the time period is included. Case Report Flow Cytometry ?Case: [id number] ? Authorizing Provider: ??Umair Tan MD ?Collected: ? 10/01/2023 01:50 PM ? Ordering Location: ? [facility] ? Received: ?10/01/2023 02:11 PM ? Pathologist: ? Beverly Ferro MD ? Specimen: ?Bone Marrow ? 10/08/2023 12:19 PM CLOTHING CONSULTANT [facility] Addendum 1 Minimal residual disease flow cytometry performed at [facility] is reportedly negative for an abnormal myeloid progenitor population. 10/08/2023 12:19 PM CLOTHING CONSULTANT [facility] Addendum electronically signed by Meagan [...] represent benign/regenerativ e myeloblasts. 10/08/2023 12:[address] [facility] Flow Cytometry Interpretation Viability: 91% B-cells: no significant population T-cells: No immunophenotypic aberrancy detected with CD2, CD5, CD7 Blasts: detected, 2.1%, express CD34, CD33, CD13 and lack CD7 expression Plasma cells: no significant population detected MRD sent: Yes A bone marrow aspirate smear prepared from the flow cytometry specimen has been reviewed for quality technician purposes. Please correlate with histologic review of the bone marrow ([id number]). 10/08/2023 12:[address] [facility] Flow Cytometry Results Differential Result Comment Flow Cell Count /uL 4,600 Total Viability % 91.0 Lymphocytes % 29 Dim CD45 Region % 4 Monocytes % 38 Granulocytes % 29 10/08/2023 12:[address] [facility] Reason for test Acute leukemia of unspecified cell type not having achieved remission (CMS-HCC) 10/08/2023 12:[address] [facility] Client Specimen ID # [id number] 10/08/2023 12:[address] [facility] Number of markers 19 were performed. A-2 Flow CD10 A-3 Flow CD13 A-5 Flow CD20 A-11 Flow CD2 A-13 Flow CD14 A-16 Flow CD117 A-17 Flow CD11b A-18 Flow CD11c A-1 Flow CD5 A-4 Flow CD19 A-6 Flow CD33 A-7 Flow CD34 A-8 Flow CD45 A-12 Flow CD7 A-14 Flow CD56 A-15 Flow CD64 A-9 [place]+CD19+ A-10 Lambda+CD19+ A-19 Flow HLA-DR 10/08/2023 12:[address] [facility] Pathologist Location at [facility] 10/08/2023 12:[address] [facility] Disclaimer Test performed at [facility], [address], [place], [address]. *The established laboratory minimum viability is 70%. [...] high complexity clinical testing. 10/08/2023 12:19 PM CLOTHING CONSULTANT [facility] Embedded Images 12:[address] [facility] Pathology/Cytolo gy BONE MARROW SPECIMEN / Unknown Collection / Unknown 10/01/2023 1:50 PM CLOTHING CONSULTANT 10/01/2023 2:11 PM CLOTHING CONSULTANT Umair Tan MD LAB - PATHOLOGY/CYTO LOGY ORDERABLES [facility] [address] [place] [address]. [place] [address], [facility] [phone] * BONE MARROW BIOPSY (STL) (10/01/2023 1:50 PM CLOTHING CONSULTANT) Only the most recent of4 resultswithin the time period is included. Case Report Bone Marrow Patholog y Report ?Case: [id number] ? Authorizing Provider: ??Umair Tan MD ?Collected: ? 10/01/2023 01:50 PM ? Ordering Location: ? [facility] ? Received: ?10/01/2023 02:11 PM ? Pathologist: ? Beverly Ferro MD ? Specimens: ?? A) - Bone Marrow Clot ? B) - Bone Marrow Core ? C) - Bone Marrow Aspirate ? D) - Blood Peripheral ? 10/03/2023 7:25 PM CLOTHING CONSULTANT [facility] Final Diagnosis Bone marrow, iliac crest, core biopsy and aspirate: -No morphologic evidence of residual acute myeloid leukemia in a normocellular marrow (70% cellular) 10/03/2023 7:25 PM CLOTHING CONSULTANT [facility] Comment Please correlate wit h MRD testing on the flow cytometry specimen which is pending. 10/03/2023 7:[address] [facility] Peripheral Smear Description Manual Differential Count (100 cells): 28% neutrophils, 1% myelocytes, 44% lymphocytes, 26% monocytes, 0% eosinophils, and 0% basophils. 1.2 nRBCs / 100 WBCs. Leukocyte number: normal. Granulocyte morphology: normal. Lymphocyte morphology: normal. Erythrocyte number: decreased. Erythrocyte morphology: normocytic. Anisopoikilocytosis: mild. Polychromasia: mild. Platelet number: decreased. Platelet morphology: normal. 10/03/2023 7:[address] [facility] Bone Marrow Aspirate [...] lack of cellular spicules. 10/03/2023 7:[address] [facility] Bone Marrow Core [...] morphology: peripheral blood only. 10/03/2023 7:[address] [facility] Flow Cytometry Summary Flow cytometry is negative for evidence of residual acute myeloid leukemia ([id number]). 10/03/2023 7:[address] [facility] Clinical History History of AML, concern for relapse and possible DRILLER PORTABLE involvement 10/03/2023 7:[address] [facility] Gross Description The [...] B1 following a 1 hour decalicifcation in [employer]. [place] 10/03/2023 7:[address] [facility] Microscopic Description Immunohistochemistry [...] cells is not noted. 10/03/2023 7:[address] [facility] Pathologist Location at [facility] 10/03/2023 7:[address] [facility] Disclaimer The performance characteristics of all immunohistochemical and indirect immunofluorescence stains (if any) cited in this report were determined by the Histopathology Laboratory of [facility]. Some of these tests were [...] the attending (teaching) pathologist. 10/03/2023 7:[address] [facility] Embedded Images 10/03/2023 7:[address] [facility] Pathology/Cytology PERIPHERAL BLOOD / Unknown Collection / Unknown 10/01/2023 1:50 PM CLOTHING CONSULTANT 10/01/2023 2:11 PM CLOTHING CONSULTANT Miscellaneous samples (specimen) BONE MARROW SPECIMEN / Unknown 10/01/2023 1:50 PM CLOTHING CONSULTANT 10/01/2023 2:11 PM CLOTHING CONSULTANT Miscellaneous samples (specimen) SPECIMEN FROM BONE MARROW OBTAINED BY ASPIRATION / Unknown 10/01/2023 1:50 PM CLOTHING CONSULTANT 10/01/2023 2:11 PM CLOTHING CONSULTANT Miscellaneous samples (specimen) PERIPHERAL BLOOD / Unknown 10/01/2023 1:50 PM CLOTHING CONSULTANT 10/01/2023 3:49 PM CLOTHING CONSULTANT Umair Tan MD LAB - PATHOLOGY/CYTO LOGY ORDERABLES [facility] [address] [phone] * MYELOID MALIGNANCIES MUTATION PNL (10/01/2023 1:50 PM CLOTHING CONSULTANT) Only the most recent of2 resultswithin the time period is included. Interpretation Myeloid Malignancy PNL See Note 10/10/2023 12:50 PM CLOTHING CONSULTANT [employer] ([facility]) Comment: Myeloid Malignancies Mutation Panel NGS Submitted diagnosis or diagnosis under consideration for variant interpretation: Acute myeloid leukemia, unspecified (AML unspec) Note: Prior NGS testing performed on this patient (most recent Floop accession [id number]) was reviewed in conjunction with the current [...] sequenced) in at least 20% of the lphgbc-oh-djamvizg is less than our stringent cutoff of [...] NOTCH1; NPM1*; NRAS; NSD1; PHF6; PIGA; PPM1D; GCBL37N; PRPF8; PTPN11; RAD21; RUNX1; SAMD9; SAMD9L; SETBP1; [...] developed and its performance characteristics determined by [facility]. It has not been cleared or approved by the U.S. Food and Drug Administration. This test was performed in a CLIA-certified laboratory and is intended for clinical purposes. Myeloid Malignancy Dx Aml Unspec 10/10/2023 12:50 PM CLOTHING CONSULTANT [facility] ([facility]) Myeloid Malignancy Panel Specimen Bone Marrow 10/10/2023 12:50 PM CLOTHING CONSULTANT [employer] ([facility]) EER Myeloid Malignancy See Note 10/10/2023 12:50 PM CLOTHING CONSULTANT [facility] ([facility]) Comment: Authorized individuals can access the [employer] Enhanced Report using the following link: [email or web address] Performed By: [facility] [address] [place] [address] Plug And Mold Finisher: Ebenezer Shipman MD, PhD CLIA Number: [id number] Other BONE MARROW SPECIMEN / Unknown Collection / Unknown 10/01/2023 1:50 PM CLOTHING CONSULTANT 10/01/2023 2:11 PM CLOTHING CONSULTANT Umair Tan MD LAB - PATHOLOGY/CYTO LOGY ORDERABLES Performing Organization Address [facility] Co de Phone Number [facility] ([facility]) [address] [place], [place] [address] * LAB MISC TEST (NOT BLOOD) (10/01/2023 1:50 PM CLOTHING CONSULTANT) Only the most recent of6 resultswithin the time period is included. Test Name FLT3 ITD/D835 10/14/2023 2:50 PM CLOTHING CONSULTANT [facility] REF LAB NON INTERF Test Result 10/14/2023 2:50 PM CLOTHING CONSULTANT [facility] REF [facility] NON INTERF Comment Ref Lab 10/14/2023 2:50 PM CLOTHING CONSULTANT [facility] REF LAB NON INTERF Other BONE MARROW SPECIMEN / Unknown Collection / Unknown 10/01/2023 1:50 PM CLOTHING CONSULTANT 10/01/2023 2:11 PM CLOTHING CONSULTANT Umair Tan MD LAB - BODY FLUID ORD ERABLES Performing Organization Address [facility]/ZIP Co de Phone Number [facility] REF LAB NON INTERF [address] [place] [address], [facility] [phone] * FISH PML/EBNY PANEL (10/01/2023 1:50 PM CLOTHING CONSULTANT) Only the most recent of2 resultswithin the time period is included. Pathologist [facility] EER PML/BENY Translocation by Fish See Note 10/02/2023 4:29 PM CLOTHING CONSULTANT [facility] [employer] ([facility]) Comment: Authorized individuals can access the [employer] Enhanced Report using the following link: [email or web address] Performed By: [facility] [address] [id number] Plug And Mold Finisher: Ebenezer Shipman MD, PhD [facility] Number: [id number] PML/BENY Translocation by FISH See Note 10/02/2023 4:29 PM CLOTHING CONSULTANT [facility] ([facility]) Comment: Test Performed: PML-BENY Translocation by FISH (FISH PML) Specimen Type: Bone Marrow Indication for Testing: Acute Leukemia of Unspecified Cell Type RESULT Normal FISH Result t(15;17) PML::BENY ??Fusion: ??not detected INTERPRETATION There was no evidence of PML::BENY fusion due to translocation (15;17)(q24;q21). This analysis was performed with the PML/BENY probes ([employer]). A total of 200 cells were scored. Cytogenomic Nomenclature (ISCN): nuc jung(PML,BENY)x2[200' This result has been reviewed and approved by Laly Gardner, PhD INTERPRETIVE INFORMATION: PML/BENY Translocation by FISH This test was developed and its performance characteristics determined by [facility] [employer]. It has not been cleared or approved by the US Food and Drug Administration. This test was performed in a CLIA certified laboratory and is intended for clinical purposes. Other BONE MARROW SPECIMEN / Unknown Collection / Unknown 10/01/2023 1:50 PM CLOTHING CONSULTANT 10/01/2023 2:11 PM CLOTHING CONSULTANT Umair Tna MD LAB - PATHOLOGY/CYTO LOGY ORDERABLES [facility]) [address] [id number], [facility] * CHROMOSOME ANALYSIS BONE MARROW PANEL (10/01/2023 1:50 PM CLOTHING CONSULTANT) Only the most recent of2 resultswithin the time period is included. [facility] Chromosome Analysis Bone Marrow See Note Normal 10/08/2023 9:09 PM CLOTHING CONSULTANT [facility] ([facility]) Comment: Test Performed: Chromosome Analysis Specimen [...] performed on this sample and reported under [facility] accession [id number]. FISH results were NORMAL. NOTE: FISH AML Panel is PENDING on this sample and will be reported under [facility] accession [id number]. This result has been reviewed and approved by Kimberly Alaniz, Ph.D., FAC A portion of this analysis was performed at the following location(s): [facility] CG-TX[facility]3 [facility] CG-IN[facility]1 [facility], [address] [place] [address], [address], [place], [address], Plug And Mold Finisher: Kimberly Alaniz, PhD, [facility] INTERPRETIVE INFORMATION: Chromosome Analysis, Bone Marrow This test was developed and its performance characteristics determined by [facility]. It has not been cleared or approved by the US Food and Drug Administration. This test was performed in a CLIA certified laboratory and is intended for clinical purposes. EER Chromosome Analysis Bone Marrow See Note 10/08/2023 9:09 PM CLOTHING CONSULTANT [employer] ([facility]) Comment: Authorized individuals can access the [facility] Enhanced Report using the following link: [email or web address] Performed By: [facility] [address] [place] [address] Plug And Mold Finisher: Ebenezer Shipman MD, PhD CLIA Number: [id number] Bone marrow BONE MARROW SPECIMEN / Unknown 10/01/2023 1:50 PM CLOTHING CONSULTANT 10/01/2023 2:11 PM CLOTHING CONSULTANT Umair Tan MD LAB - PATHOLOGY/CYTO LOGY ORDERABLES [facility] [employer] [facility]) [address] [place], [place] [address] * CT ANGIO BRAIN AND NECK (10/01/2023 12:28 AM CLOTHING CONSULTANT) Anatomical Region Laterality Modality Head Computed Tomogra phy 10/01/2023 12:2 9 AM CLOTHING CONSULTANT Impressions 10/01/2023 8:30 AM CLOTHING CONSULTANT IMPRESSION: 1.Previously described trace volume of subarachnoid [...] verification. Report dictated by Steve Street M.D. (president and cmo) 10/01/2023 12:40 AM IAugustine MD have personally reviewed and interpreted this examination/study. > Interpreting Provider: Augustine Davison MD on 10/01/2023 8:30 AM Narrative 10/01/2023 8:30 AM CLOTHING CONSULTANT PROCEDURE: ??CT ANGIO BRAIN AND NECK, DATE/TIME OF EXAM: ??10/01/2023 12:28 AM, LOCATION ??[facility] INDICATION: R90.89: Abnormal imaging of central [...] vena cava and terminating out of the mpdmn-dg-ntxy. There is a heterogeneous nodule within the [...] DATE/TIME OF EXAM: 10/01/2023 12:28 AM, LOCATION [facility] INDICATION: R90.89: Abnormal imaging of central [...] vena cava and terminating out of the eszyx-vl-pkma. There is a heterogeneous nodule within the [...] verification. Report dictated by Steve Street M.D. (president and cmo) 10/01/2023 12:40 AM IAugustine MD have personally reviewed and interpretedthis examination/study. > Interpreting Provider: Augustine Davison MD on 10/01/2023 8:30 AM Umair Tan MD CT ORDERABLES * TRANSFUSE PLATELET PHERESIS UNIT(S) (09/30/2023 7:16 PM CLOTHING CONSULTANT) Umair Tan MD NURSING - BLOOD PROD TRANSFUSION * MRI ORBITS OR FACE WWO CONTRAST (09/29/2023 9:19 PM CLOTHING CONSULTANT) Anatomical Region Laterality Modality Head Magnetic Resonan ce 09/30/2023 10:2 3 AM CLOTHING CONSULTANT Impressions 09/30/2023 1:43 PM CLOTHING CONSULTANT IMPRESSION: 1.There is lack of FLAIR suppression [...] report was drafted by Mary Muir MD (Quality Assurance Tester). Preliminary findings were discussed in detail with the patient's care provider, Dr. Tan by Dr. Muir via telephone at 11:03 AM on 09/30/2023 with readback comprehension and verification. I, Sara Huitron MD have personally reviewed and interpreted this examination/study. 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 ([facility]) ADDITIONAL CLINICAL INFORMATION: Ordering Provider Reason For Exam: ??Evidence of intracranial pathology responsible for acute right sided visual field defect in patient with AML (accession [id number]), Ocular structural abnormalities in a patient with acute myeloid leukemia with acute onset of floaters (accession [id number]) Technologist Note: Additional: COMPARISON: TECHNIQUE: MRI of [...] DATE/TIME OF EXAM: 09/29/2023 9:19 PM, LOCATION [facility] INDICATION: C95.00: Acute leukemia of unspecified cell type not having achieved remission ([facility]) ADDITIONAL CLINICAL INFORMATION: Ordering Provider Reason For Exam: Evidence of intracranial pathology responsible for acute right sided visual field defect in patient withAML (accession [id number]), Ocular structural abnormalities in a patient with acute myeloid leukemia with acute onset of floaters ([id number]) Technologist Note: Additional: COMPARISON: TECHNIQUE: MRI of [...] report was drafted by Mary Muir MD (Quality Assurance Tester). Preliminary findings were discussed in detail with the patient's care provider, Dr. Tan by Dr. Muir via telephone at 11:03 AM on 09/30/2023 with readback comprehension and verification. Sara Bartholomew MD have personally reviewed and interpreted this examination/study. > Interpreting Provider: Sara Huitron MD on 09/30/2023 1:43 PM Librado Mora DO MR ORDERABLES * MRI BRAIN WWO CONTRAST (09/29/2023 9:18 PM CLOTHING CONSULTANT) Anatomical Region Laterality Modality Head Magnetic Resonan ce 09/30/2023 10:2 3 AM CLOTHING CONSULTANT Impressions 09/30/2023 1:43 PM CLOTHING CONSULTANT IMPRESSION: 1.There is lack of FLAIR suppression [...] report was drafted by Mary Muir MD (Quality Assurance Tester). Preliminary findings were discussed in detail with the patient's care provider, Dr. Tan by Dr. Muir via telephone at 11:03 AM on 09/30/2023 with readback comprehension and verification. Sara Bartholomew MD have personally reviewed and interpreted this examination/study. 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 (accession [id number]) Technologist Note: Additional: COMPARISON: TECHNIQUE: MRI of [...] DATE/TIME OF EXAM: 09/29/2023 9:19 PM, LOCATION [facility] INDICATION: 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 Preliminary findings were discussed in detail with the patient's care provider, Dr. Tan by Dr. Muir via telephone at 11:03 AM on 09/30/2023 with readback comprehension and verification. I, Sara Huitron MD have personally reviewed and interpreted this examination/study. > Interpreting Provider: Sara Huitron MD on 09/30/2023 1:43 PM Carrollfernanda Morgan MONTERROSO MR ORDERABLES * TRANSFUSION REACTION PANEL (09/29/2023 4:05 PM CLOTHING CONSULTANT) Direct Vladimir (RICHI) NEG 09/29 5:29 PM CLOTHING CONSULTANT [facility] Comment:RICHI READ MICROSCOPIC ALLY ABO Rh O POS 09/29/2023 5:29 PM CLOTHING CONSULTANT [facility] Blood Bank BLOOD SPECIMEN / Unknown Line Draw / Unknown 09/29/2023 4:05 PM CLOTHING CONSULTANT 09/29/2023 4:25 PM CLOTHING CONSULTANT Librado Mora LAB - BLOOD BANK ORD ERABLES [facility] [address] [place] [address], [facility] [phone] * ECHO LIMITED OR FOLLOWUP (09/27/2023 9:36 AM CLOTHING CONSULTANT) Only the most recent of2 resultswithin the time period is included. BSA [id number] m2 [facility] CV FUJ I PACS RV-wall [...] 2.387 cm SSM C V FUJI PACS [id number] 7.722 cm SSM CV FUJ I PACS [id number] 7.224 cm SSM CV FUJ I PACS [...] Laterality Modality Ultrasound Narrative 09/27/2023 9:30 PM CLOTHING CONSULTANT ?Left??Ventricle: Left ventricle size is normal. EDV [...] * (ABNORMAL) OSMOLALITY BLOOD (09/26/2023 9:41 AM CLOTHING CONSULTANT) Osmolality 274(L) 275 - 295 mOsm/kg 09/26/2023 10:41 AM CLOTHING CONSULTANT [facility] Blood BLOOD SPECIMEN / Unknown Venipuncture / Unknown 09/26/2023 9:41 AM CLOTHING CONSULTANT 09/26/2023 9:41 AM CLOTHING CONSULTANT Bernard Mancuso MD LAB - CHEMISTRY ORDE RABLES Performing Organization Address [facility]/ZIP Co de Phone Number [address] [address], [facility] [phone] * SODIUM URINE RANDOM (09/26/2023 9:12 AM CLOTHING CONSULTANT) Sodium Urine <20 Not Established mmol/L 09/26/2023 9:35 AM CLOTHING CONSULTANT [facility] Urine URINE SPECIMEN OBTAINED BY CLEAN CATCH PROCEDURE / Unknown Collection / Unknown 09/26/2023 9:12 AM CLOTHING CONSULTANT 09/26/2023 9:22 AM CLOTHING CONSULTANT Bernard Mancuso MD LAB - URINE CHEMISTR Y ORDERABLES Performing Organization Address City/[facility]/ZIP Co de Phone Number [address] [address], [facility] [phone] * OSMOLALITY URINE (09/26/2023 9:12 AM CLOTHING CONSULTANT) Pathologist [facility] Osmolality Urine 270 50 - 1,200 mOsm/kg 09/26/2023 9:58 AM CLOTHING CONSULTANT [facility] Urine URINE SPECIMEN OBTAINED BY CLEAN CATCH PROCEDURE / Unknown Collection / Unknown 09/26/2023 9:12 AM CLOTHING CONSULTANT 09/26/2023 9:22 AM CLOTHING CONSULTANT Bernard Mancuso MD LAB - URINE CHEMISTR Y ORDERABLES [address] [address], [facility] [phone] * TRANSFUSE PLATELET PHERESIS UNIT(S) (09/25/2023 5:23 PM CLOTHING CONSULTANT) Jair Burgess MD NURSING - BLOOD PROD TRANSFUSION * TROPONIN-I HIGH SENSITIVE (09/25/2023 2:33 PM CLOTHING CONSULTANT) Pathologist [facility] Troponin I High Sensitive 9 <=14 ng/L 09/25/2023 3:17 PM CLOTHING CONSULTANT [facility] Blood BLOOD SPECIMEN / Unknown Venipuncture / Unknown 09/25/2023 2:33 PM CLOTHING CONSULTANT 09/25/2023 2:44 PM CLOTHING CONSULTANT Jair Burgess MD LAB - CHEMISTRY ORDE RABLES Performing Organization Address City/[facility]/ZIP Co de Phone Number [address] [address], [facility] [phone] * B-TYPE NATRIURETIC PEPTIDE (09/25/2023 2:33 PM CLOTHING CONSULTANT) Pathologist [facility] BNP 87 <100 pg/mL 09/25/2023 3:17 PM CLOTHING CONSULTANT [facility] Comment: A decision threshold of 100 pg/mL [...] Unknown Venipuncture / Unknown 09/25/2023 2:33 PM CLOTHING CONSULTANT 09/25/2023 2:44 PM CLOTHING CONSULTANT Jair Burgess MD LAB - CHEMISTRY JON NAIDU [facility] [address] [place] [address], [facility] [phone] * (ABNORMAL) BLOOD GASES ART + COOX PANEL (09/25/2023 12:14 AM CLOTHING CONSULTANT) pH Arterial 7.45 7.35 - 7.45 pH 09/25/2023 12:28 AM [facility] pO2 Arterial 94 80 - 100 mmHg 09/25/2023 12:28 AM [facility] pCO2 Arterial 25(L) 35 - 45 mmHg 12:28 AM [facility] HCO3 Arterial 17.4(L) 20.0 - 30.0 mmol/L 09/25/2023 12:28 AM [facility] BE Arterial -6.0(L) -2.0 - 2.0 mmol/L 09/25/2023 12:28 AM [facility] Oxyhemoglobin Arterial 97.6 % 09/25/2023 12:28 AM [facility] Dexoyhemoglobin (HHB) % <1.0 % 09/25/2023 12:28 AM [facility] Methemoglobin <0.8 0.0 - 2.0 % 09/25/2023 12:28 AM [facility] Carboxyhemoglobin 2.0 0.0 - 2.0 % 2023 12:28 AM [facility] O2 Content Arterial 8.6 Interpret within clinical context ml/dL 09/25/2023 12:28 AM [facility] Hemoglobin by COOX 6.1(L) 12.0 - 15.6 g/dL 09/25/2023 12:28 AM [facility] O2 Saturation Arterial 100 90 - 100 % 09/25/2023 12:28 AM [facility] FI O2 Arterial 21.0 % 09/25/2023 12:28 AM [facility] Blood, arterial ARTERIAL BLOOD SPECIMEN / Unknown Arterial Puncture / Unknown 09/25/2023 12:14 AM CLOTHING CONSULTANT 09/25/2023 12:25 AM [facility] - 09/25/2023 12:28 AM [facility] Carboxyhemoglobin Normal Concentration: Non-smokers: 0-2%; Smokers: 0-9%; Toxic: >20% Genny Leigh MD LAB - BLOOD GASES OR DERABLES [facility] [address] [place] [address], [facility] [phone] * VANCOMYCIN LEVEL TROUGH (09/23/2023 2:09 AM CLOTHING CONSULTANT) Vancomycin Trough 11.0 10.0 - 20.0 ug/mL 09/23/2023 2:49 AM CLOTHING CONSULTANT [facility] Blood BLOOD SPECIMEN / Unknown Line Draw / Unknown 09/23/2023 2:09 AM CLOTHING CONSULTANT 09/23/2023 2:23 AM CLOTHING CONSULTANT Narrative [facility] - 09/23/2023 2:49 AM CLOTHING CONSULTANT See institution protocol. Soraya Malik MD LAB - CHEMISTRY ORDERABLES Performing Organization Address City/[facility]/ZIP Co de Phone Number [address] [address], [facility] [phone] * VANCOMYCIN LEVEL PEAK (09/22/2023 10:21 PM CLOTHING CONSULTANT) Vancomycin Peak 28.4 25.0 - 40.0 ug/mL 09/22/2023 10:58 PM CLOTHING CONSULTANT [facility] Blood BLOOD SPECIMEN / Unknown Line Draw / Unknown 09/22/2023 10:21 PM CLOTHING CONSULTANT 09/22/2023 10:28 PM CLOTHING CONSULTANT Narrative [facility] - 09/22/2023 10:58 PM CLOTHING CONSULTANT See institution protocol. Data does not support the use of vancomycin peak concentration for efficacy. Soraya Malik MD LAB - CHEMISTRY ORDERABLES Performing Organization Address [facility]/ZIP Co de Phone Number [address] [address], [facility] [phone] * CT ANGIO CHEST PULM EMBOLISM (09/22/2023 8:14 PM CLOTHING CONSULTANT) Anatomical Region Laterality Modality Chest Computed Tomogra phy 09/22/2023 8:17 PM CLOTHING CONSULTANT Impressions 09/23/2023 10:22 AM CLOTHING CONSULTANT Impression: 1.Suboptimal evaluation of the pulmonary arteries [...] 09/23/2023. > Dictated by Kaye Teresa DO (president and cmo). I, LUDIVINA HAYWARD MD have personally reviewed and interpreted this examination/study. > Interpreting Provider: LUDIVINA HAYWARD MD on 09/23/2023 10:22 AM Narrative 09/23/2023 10:22 AM CLOTHING CONSULTANT PROCEDURE: ??CT ANGIO CHEST PULM EMBOLISM, DATE/TIME OF EXAM: ??09/22/2023 8:16 PM, LOCATION ??[facility] INDICATION: R00.0: Tachycardia ADDITIONAL CLINICAL INFORMATION: [...] EMBOLISM, DATE/TIME OF EXAM: 48:16 PM, LOCATION [facility] INDICATION: R00.0: Tachycardia ADDITIONAL CLINICAL INFORMATION: [...] 09/23/2023. > Dictated by Kaye Teresa DO (president and cmo). I, LUDIVINA HAYWARD MD have personally reviewed and interpreted this examination/study. > Interpreting Provider: LUDIVINA HAYWARD MD on 09/23/2023 10:22 AM Soraya Malik MD CT ORDERABLES * MRSA DNA PCR (09/22/2023 6:22 PM CLOTHING CONSULTANT) MRSA DNA by PCR Not detected Not detected 09/23/2023 12:36 AM CLOTHING CONSULTANT [facility] MICROBIOLOGY Microbiology SPECIMEN FROM NASAL FOSSAE / Unknown Collection / Unknown 09/22/2023 6:22 PM CLOTHING CONSULTANT 09/22/2023 6:42 PM CLOTHING CONSULTANT Narrative [facility] MICROBIOLOGY - 09/23/2023 12:36 AM CLOTHING CONSULTANT Methicillin-resistant Staphylococcus aureus (MRSA) DNA is not detected (presumed not colonized with MRSA). Soraya Malik MD LAB - MICROBIOL OGY ORDERABLES [facility] MICROBIOLOGY [address] [place] [address], [facility] [phone] * LACTIC ACID BLOOD REFLEX TO REPEAT (09/22/2023 5:42 PM CLOTHING CONSULTANT) Lactic Acid-Stat 0.6 <=2.0 mmol/L 09/22/2023 6:14 PM CLOTHING CONSULTANT [facility] Blood BLOOD SPECIMEN / Unknown Venipuncture / Unknown 09/22/2023 5:42 PM CLOTHING CONSULTANT 09/22/2023 5:53 PM CLOTHING CONSULTANT Soraya Malik MD LAB - CHEMISTRY ORDERABLES [facility] [address] [place] [address], [place] [phone] * TRANSFUSE RED BLOOD CELL LEUKOREDUCED UNIT(S) (09/22/2023 1:10 AM CLOTHING CONSULTANT) Soraya Malik MD NURSING - BLOOD PROD TRANSFUSION * TRANSFUSE PLATELET PHERESIS UNIT(S) (09/21/2023 6:15 AM CLOTHING CONSULTANT) Genny Leigh MD NURSING - BLOOD PROD TRANSFUSION * TRANSFUSE RED BLOOD CELL LEUKOREDUCED UNIT(S) (09/20/2023 3:29 AM CLOTHING CONSULTANT) Dominic Farah MD NURSING - BLOOD PROD TRANSFUSION * TRANSFUSE PLATELET PHERESIS UNIT(S) (09/18/2023 12:36 AM CLOTHING CONSULTANT) Graham Beltran MD NURSING - BLOOD PROD TRANSFUSION * TRANSFUSE PLATELET PHERESIS UNIT(S) (09/15/2023 6:03 AM CLOTHING CONSULTANT) Myah Roberts DO NURSING - BLOOD PROD TRANSFUSION * TRANSFUSE RED BLOOD CELL LEUKOREDUCED UNIT(S) (09/15/2023 6:03 AM CLOTHING CONSULTANT) Graham Beltran MD NURSING - BLOOD PROD TRANSFUSION * XR ABDOMEN KUB (09/15/2023 5:37 AM CLOTHING CONSULTANT) Anatomical Region Laterality Modality Abdomen Radiographic Ammy ging 09/16/2023 6:56 AM CLOTHING CONSULTANT Impressions 09/17/2023 2:19 PM CLOTHING CONSULTANT IMPRESSION: No gross radiographic evidence of acute intra-abdominal process, however examination is severely limited due to the patient's morbidly obese body habitus Report dictated by Ivy Corea Dr, MD (president and cmo). I, Raheem Cazares MD have personally reviewed and interpreted this examination/study. > Interpreting Provider: Raheem Cazares MD on 09/17/2023 2:19 PM Narrative 09/17/2023 2:19 PM CLOTHING CONSULTANT PROCEDURE: ??XR ABDOMEN KUB, DATE/TIME OF EXAM: ??09/15/2023 5:38 AM, LOCATION [facility] INDICATION: R14.0: Bloating ADDITIONAL CLINICAL INFORMATION: [...] DATE/TIME OF EXAM: 09/15/2023 5:38 AM, LOCATION [facility] INDICATION: R14.0: Bloating ADDITIONAL CLINICAL INFORMATION: [...] Report dictated by Ivy Corea Dr, MD (president and cmo). I, Raheem Cazares MD have personally reviewed and interpreted this examination/study. > Interpreting Provider: Raheem Cazares MD on 09/17/2023 2:19 PM Graham Beltran MD DIAGNOSTIC IMAGING O RDERABLES * PTT [facility] (09/13/2023 8:52 PM CLOTHING CONSULTANT) Only the most recent of10 resultswithin the time period is included. APTT 23.2 23.0 - 38.4 Seconds 09/13/2023 9:40 PM CLOTHING CONSULTANT [facility] Comment:Suggested therapeuti c range for full dose I.V. unfractionated heparin therapy for venous thromboembolism is 71 to 109 seconds. Blood BLOOD SPECIMEN / Unknown Venipuncture / Unknown 09/13/2023 8:52 PM CLOTHING CONSULTANT 09/13/2023 9:17 PM CLOTHING CONSULTANT Myah Roberts DO LAB - COAGULATION OR DERABLES [facility] [address] [place] [address], [facility] [phone] * PT-INR [facility] (09/13/2023 8:52 PM CLOTHING CONSULTANT) Only the most recent of10 resultswithin the time period is included. PT 13.1 12.1 - 14.8 Seconds 09/13/2023 9:40 PM CLOTHING CONSULTANT [facility] INR 1.0 See Comment 09/13/2023 9:40 PM CLOTHING CONSULTANT [facility] Comment:The suggested therap eutic range for standard coumadin (warfarin) therapy is an INR of 2.0-3.0. For high-risk patients (Mechanical Mitral Valve Prosthesis, etc.), the suggested prophylactic therapeutic range is an INR of 2.5-3.5. Blood BLOOD SPECIMEN / Unknown Venipuncture / Unknown 09/13/2023 8:52 PM CLOTHING CONSULTANT 09/13/2023 9:17 PM CLOTHING CONSULTANT Myah Roberts DO LAB - COAGULATION OR DERABLES [facility] [address] [place] [address], [facility] [phone] * (ABNORMAL) D-DIMER (09/13/2023 8:52 PM CLOTHING CONSULTANT) Only the most recent of10 resultswithin the time period is included. D-Dimer Quantitative 2.22(H) <=0.50 mcg/mL FEU 09/13/2023 9:43 PM CLOTHING CONSULTANT [facility] Comment: In the absence of clinical symptoms, [...] Unknown Venipuncture / Unknown 09/13/2023 8:52 PM CLOTHING CONSULTANT 09/13/2023 9:17 PM CLOTHING CONSULTANT Myah Roberts DO LAB - COAGULATION OR DERABLES Performing Organization Address City/[facility]/ZIP Co de Phone Number [address] [address], [facility] [phone] * (ABNORMAL) RETIC COUNT (09/13/2023 8:52 PM CLOTHING CONSULTANT) Only the most recent of10 resultswithin the time period is included. Reticulocyte Percent 0.43(L) 0.50 - 2.40 % 09/13/2023 11:29 PM CLOTHING CONSULTANT [facility] Reticulocyte Absolute 0.0098(L) 0.0200 - 0.1100 x10E6/uL 09/13/2023 11:29 PM CLOTHING CONSULTANT [facility] Ret-HE 35.7 29.0 - 37.9 pg 09/13/2023 11:29 PM [facility] Immature Reticulocyte Fraction 0.8(L) 1.8 - 15.2 % 09/13/2023 11:29 PM [facility] Blood BLOOD SPECIMEN / Unknown Venipuncture / Unknown 09/13/2023 8:52 PM CLOTHING CONSULTANT 09/13/2023 9:18 PM CLOTHING CONSULTANT Myah Roberts DO LAB - HEMATOLOGY ORD ERABLES Performing Organization Address City/[facility]/ZIP Co de Phone Number [address] [address], [facility] [phone] * (ABNORMAL) HAPTOGLOBIN (09/13/2023 8:52 PM CLOTHING CONSULTANT) Only the most recent of10 resultswithin the time period is included. Haptoglobin 271(H) 14 - 258 mg/dL 09/13/2023 9:46 PM CLOTHING CONSULTANT [facility] Comment:Result obtained by jose de jesus ashby. Blood BLOOD SPECIMEN / Unknown Venipuncture / Unknown 09/13/2023 8:52 PM CLOTHING CONSULTANT 09/13/2023 9:07 PM CLOTHING CONSULTANT Myah Roberts DO LAB - CHEMISTRY ORDE RABLES [facility] [address] [place] [address], [place] [phone] * TRANSFUSE RED BLOOD CELL LEUKOREDUCED UNIT(S) (09/09/2023 6:41 AM CLOTHING CONSULTANT) Jamel Silverio MD NURSING - BLOOD PROD TRANSFUSION * BLOOD TYPE VERIFICATION (09/09/2023 12:58 AM CLOTHING CONSULTANT) ABO Rh O POS 09/09/2023 1:5 8 AM CLOTHING CONSULTANT [facility] Blood Bank BLOOD SPECIMEN / Unknown Venipuncture / Unknown 09/09/2023 12:58 AM CLOTHING CONSULTANT 09/09/2023 1:54 AM CLOTHING CONSULTANT Maria C Downing MD LAB - [facility] Performing Organization Address [facility]/ZIP Co de Phone Number [facility] [address] [place] [address], [facility] [phone] * CYTOMEGALOVIRUS ANTIBODY IGG BLOOD (09/06/2023 9:43 PM CLOTHING CONSULTANT) Only the most recent of2 resultswithin the time period is included. Pathologist [facility] Cytomegalovirus Antibody IgG 0.26 <=0.70 U/mL 09/09/2023 1:32 PM CLOTHING CONSULTANT [facility] ([facility]) Comment: INTERPRETIVE INFORMATION: Cytomegalovirus Antibody, IgG [...] laboratory at the same time. Performed By: [facility] [address] [place] [address] Plug And Mold Finisher: Ebenezer Shipman MD, PhD CLIA Number: [id number] Blood BLOOD SPECIMEN / Unknown Venipuncture / Unknown 09/06/2023 9:43 PM CLOTHING CONSULTANT 09/06/2023 10:26 PM CLOTHING CONSULTANT Cheryl Cronin MD LAB - CHEMISTRY JON NAIDU [facility] ([facility]) [address] [place] [address], [facility] * HLA TYPING LOW/HIGH RESOLUTION DPB1 (09/06/2023 5:15 PM CLOTHING CONSULTANT) Typ DNA LR DPB1 Allele #1 *03 09/20/2023 9:47 AM CLOTHING CONSULTANT [facility] ([facility]) Typ DNA LR DPB1 Allele #2 *04 09/20/2023 9:47 AM [facility] ([facility]) Typ DNA HR DPB1 Allele #1 *03:01:01G 09/20/2023 9:47 AM [facility] ([facility]) Typ DNA HR DPB1 Allele #2 *04:01:01G 09/20/2023 9:47 AM [facility] ([facility]) Test Methodology RTPCR/NGS 09/20/19 24 9:[address] [facility] ([facility]) Date Results Entered [id number] 09/20/2023 9:[address] [facility] ([facility]) Comment: This test was developed and its performance characteristics determined by the [facility]. ??It has not been cleared or [...] complexity clinical laboratory testing. Performed at: [facility], [address] [place], [place] ??[phone] Property Coordinator:Dr. Virgil Mabry, PhD, Blood BLOOD SPECIMEN / Unknown Venipuncture / Unknown 09/06/2023 5:15 PM CLOTHING CONSULTANT 09/06/2023 5:22 PM CLOTHING CONSULTANT Cheryl Cronin MD LAB - BLOOD BANK ORD ERABLES [facility] ([facility]) [address] [place] [address], [facility] * CYTOMEGALOVIRUS (CMV) QUANTITATIVE PLASMA (09/06/2023 5:15 PM CLOTHING CONSULTANT) Only the most recent of2 resultswithin the time period is included. CMV Quant by PCR, Interp Not detected Not detected 09/09/2023 9:42 AM CLOTHING CONSULTANT [facility] Blood BLOOD SPECIMEN / Unknown Lab Venipuncture / Unknown 09/06/2023 5:15 PM CLOTHING CONSULTANT 09/06/2023 6:45 PM CLOTHING CONSULTANT Narrative [facility] - 09/09/2023 9:42 AM CLOTHING CONSULTANT The CMV DNA analysis utilized real-time PCR, [...] Cronin MD LAB - CHEMISTRY JON NAIDU [facility] [address] [place] [address], [facility] [phone] * HLA TYPING DNA LOW RESOLUTION DR,DQ (09/06/2023 5:15 PM CLOTHING CONSULTANT) DR DQ Low Resolution DRB1-1 *04 09/20/2023 9:47 AM CLOTHING CONSULTANT [facility] ([facility]) DR DQ Low Resolution DRB1-2 *07 09/20/2023 9:47 AM CLOTHING CONSULTANT [facility] ([facility]) DR DQ Low Resolution DQB1-1 *03 09/20/2023 9:47 AM CLOTHING CONSULTANT [facility] ([facility]) DR DQ Low Resolution DRB3-1 Negative 09/20/2023 9:47 AM CLOTHING CONSULTANT [facility] ([facility]) DR DQ Low Resolution DRB3-2 Negative 09/20/2023 9:47 AM CLOTHING CONSULTANT [facility] ([facility]) DR DQ Low Resolution DRB4-1 *01 09/20/2023 9:47 AM CLOTHING CONSULTANT [facility] ([facility]) DR DQ Low Resolution DRB4-2 *01:03N 09/20/2023 9:47 AM CLOTHING CONSULTANT [facility] ([facility]) DR DQ Low Resolution DRB5-1 Negative 09/20/2023 9:47 AM CLOTHING CONSULTANT [facility] ([facility]) DR DQ Low Resolution DRB5-2 Negative 09/20/2023 9:47 AM CLOTHING CONSULTANT [facility] ([facility]) DR DQ Low Resolution Methodology Real Time PCR 09/20/2023 9:47 AM CLOTHING CONSULTANT [facility] ([facility]) DR DQ Low Resolution test date [id number] 09/20/2023 9:47 AM CLOTHING CONSULTANT [facility] ([facility]) Comment: This test was developed and its performance characteristics determined by the [facility]. ??It has not been cleared or [...] high complexity clinical laboratory testing. ??CLIA ID# [id number] Performed at: [facility], [address] [place] [address] ??[phone] Property Coordinator:Dr. Virgil Mabry, PhD, Blood BLOOD SPECIMEN / Unknown Venipuncture / Unknown 09/06/2023 5:15 PM CLOTHING CONSULTANT 09/06/2023 5:22 PM CLOTHING CONSULTANT Cheryl Cronin MD LAB - BLOOD BANK ORD ERABLES Performing Organization Address City/State/[facility] Co de Phone Number [facility] ([facility]) [address] [place] [address] * HLA TYPING DNA LOW RESOLUTION A,B,C (09/06/2023 5:15 PM CLOTHING CONSULTANT) ABC DNA A1 *02 09/20/2023 9:47 AM CLOTHING CONSULTANT [facility] ([facility]) ABC DNA A2 *03 09/20/2023 9:47 AM CLOTHING CONSULTANT [facility] ([facility]) ABC DNA B1 *44 09/20/2023 9:47 AM CLOTHING CONSULTANT [facility] ([facility]) ABC DNA B2 *57 09/20/2023 9:47 AM CLOTHING CONSULTANT [facility] ([facility]) ABC DNA BW1 4 09/20/2023 9:47 AM CLOTHING CONSULTANT [facility] ([facility]) ABC DNA BW2 4 09/20/2023 9:47 AM CLOTHING CONSULTANT [facility] ([facility]) ABC DNA C1 *05 09/20/2023 9:47 AM CLOTHING CONSULTANT [facility] ([facility]) ABC DNA C2 *06 09/20/2023 9:47 AM CLOTHING CONSULTANT [facility] ([facility]) ABC DNA Methodology Real Time PCR 09/20/2023 9:47 AM [facility] ([facility]) ABC DNA Test Date [id number] 02/2024 9:47 AM [facility] ([facility]) Comment: This test was developed and its performance characteristics determined by the [facility]. ??It has not been cleared or [...] high complexity clinical laboratory testing. ??CLIA ID# [id number] Performed at: [facility], [address] [place] [address] ??[phone] Property Coordinator:Dr. Virgil Mabry, PhD, Blood BLOOD SPECIMEN / Unknown Venipuncture / Unknown 09/06/2023 5:15 PM CLOTHING CONSULTANT 09/06/2023 5:22 PM CLOTHING CONSULTANT Cheryl Cronin MD LAB - BLOOD BANK ORD ERABLES Performing Organization Address City/State/[facility] Co de Phone Number [facility] ([facility]) [address] * HLA TYPING DNA HIGH RESOLUTION DR (09/06/2023 5:15 PM CLOTHING CONSULTANT) DR Locus DRB1-1 *04:01 9:47 AM [facility] ([facility]) DR DQ Low Resolution DRB1-2 *07:01 09/20/2023 9:47 AM [facility] ([facility]) DR Locus Test Method NGS 09/20/2023 9:47 AM [facility] ([facility]) DR Locus Test Date [id number] 9:47 AM [facility] ([facility]) Comment: This test was developed and its performance characteristics determined by the [facility]. ??It has not been cleared or [...] high complexity clinical laboratory testing. ??CLIA ID# [id number] Performed at: [facility], [address] [place] [address] ??[phone] Property Coordinator:Dr. Virgil Mabry, PhD, Blood BLOOD SPECIMEN / Unknown Venipuncture / Unknown 09/06/2023 5:15 PM CLOTHING CONSULTANT 09/06/2023 5:22 PM CLOTHING CONSULTANT Cheryl Cronin MD LAB - BLOOD BANK ORD ERABLES [facility] ([facility]) [address] [place] [address], [facility] * HLA TYPING DNA HIGH RESOLUTION DQ (09/06/2023 5:15 PM CLOTHING CONSULTANT) DR DQ Low Resolution DQB1-1 *03:01 09/20/2023 9:47 AM CLOTHING CONSULTANT [facility] ([facility]) DR DQ Low Resolution DQB1-2 *03:03 09/20/2023 9:47 AM CLOTHING CONSULTANT [facility] ([facility]) DQ Locus Methodology NGS 09/20/2023 9:47 AM CLOTHING CONSULTANT [facility] ([facility]) DQ Locus Test Date [id number] 9:47 AM CLOTHING CONSULTANT [facility] ([facility]) Comment: This test was developed and its performance characteristics determined by the [facility]. ??It has not been cleared or [...] high complexity clinical laboratory testing. ??CLIA ID# [id number] Performed at: [facility], [address] [place] [address], [place] ??[phone] Property Coordinator:Dr. Virgil Mabry, PhD, Blood BLOOD SPECIMEN / Unknown Venipuncture / Unknown 09/06/2023 5:15 PM CLOTHING CONSULTANT 09/06/2023 5:22 PM CLOTHING CONSULTANT Cheryl Cronin MD LAB - BLOOD BANK ORD ERABLES [facility] ([facility]) [facility] [place] [address], [facility] * HLA TYPING DNA HIGH RESOLUTION B (09/06/2023 5:15 PM CLOTHING CONSULTANT) HLA B Locus B-1 *44:02 4 9:47 AM CLOTHING CONSULTANT [facility] ([facility]) HLA B Locus Bw-1 4 09/20/19 24 9:47 AM CLOTHING CONSULTANT [facility] ([facility]) HLA B Locus B-2 *57:01 4 9:47 AM CLOTHING CONSULTANT [facility] ([facility]) HLA B Locus Bw-2 4 09/20/19 24 9:47 AM CLOTHING CONSULTANT [facility] ([facility]) HLA B Locus Methodology NGS 09/20/2023 9:47 AM CLOTHING CONSULTANT [facility] ([facility]) HLA B Locus Test Date [id number] 09/20/2023 9:47 AM CLOTHING CONSULTANT [facility] ([facility]) Comment: This test was developed and its performance characteristics determined by the [facility]. ??It has not been cleared or [...] high complexity clinical laboratory testing. ??CLIA ID# [id number] Performed at: [facility], [address] [place] [address] ??[phone] Property Coordinator:Dr. Virgil Mabry, PhD, Blood BLOOD SPECIMEN / Unknown Venipuncture / Unknown 09/06/2023 5:15 PM CLOTHING CONSULTANT 09/06/2023 5:22 PM CLOTHING CONSULTANT Cheryl Cronin MD LAB - BLOOD BANK ORD ERABLES Performing Organization Address City/[facility]/ZIP Co de Phone Number [facility] ([facility]) [address] [place] [address] * HLA TYPING DNA HIGH RESOLUTION A (09/06/2023 5:15 PM CLOTHING CONSULTANT) A Locus HR A1 *02:01 09/20/2023 9:47 AM CLOTHING CONSULTANT [facility] ([facility]) A Locus HR A2 *03:01 09/20/2023 9:47 AM CLOTHING CONSULTANT [facility] ([facility]) A Locus HR Methodology NGS 09/20/2023 9:47 AM CLOTHING CONSULTANT [facility] ([facility]) A Locus Test Date [id number] 02/2024 9:47 AM CLOTHING CONSULTANT [facility] ([facility]) Comment: This test was developed and its performance characteristics determined by the [facility]. ??It has not been cleared or [...] high complexity clinical laboratory testing. ??CLIA ID# [id number] Performed at: [facility], [address] [place] [address] ??[phone] Property Coordinator:Dr. Virgil Mabry, PhD, Blood BLOOD SPECIMEN / Unknown Venipuncture / Unknown 09/06/2023 5:15 PM CLOTHING CONSULTANT 09/06/2023 5:22 PM CLOTHING CONSULTANT Cheryl Cronin MD LAB - BLOOD BANK ORD ERABLES Performing Organization Address City/[facility]/ZIP Co de Phone Number [facility] ([facility]) [facility] [address] * HLA TYPING DNA HIGH RESOLUTION C (09/06/2023 5:15 PM CLOTHING CONSULTANT) C Locus C1 *05:01 09/20/2023 9:47 AM CLOTHING CONSULTANT [facility] ([facility]) C Locus C2 *06:02 09/20/2023 9:47 AM CLOTHING CONSULTANT [facility] ([facility]) Test Method NGS 09/20/2023 9:47 AM CLOTHING CONSULTANT [facility] ([facility]) C Locus Test Date [id number] 02/2024 9:47 AM CLOTHING CONSULTANT [facility] ([facility]) Comment: This test was developed and its performance characteristics determined by the [facility]. ??It has not been cleared or [...] high complexity clinical laboratory testing. ??CLIA ID# [id number] Performed at: [facility], [address] [place], [place] ??[phone] Property Coordinator:Dr. Virgil Mabry, PhD, Blood BLOOD SPECIMEN / Unknown Venipuncture / Unknown 09/06/2023 5:15 PM CLOTHING CONSULTANT 09/06/2023 5:22 PM CLOTHING CONSULTANT Cheryl Cronin MD LAB - BLOOD BANK ORD ERABLES [facility] ([facility]) [address] [place] [address], [facility] * IR CENTRAL LINE INSERT TUNNEL (09/05/2023 1:50 PM CLOTHING CONSULTANT) Anatomical Region Laterality Modality Chest, Upper Extremity X-Ray Ang iography 09/05/2023 2:07 PM CLOTHING CONSULTANT Impressions 09/05/2023 2:10 PM CLOTHING CONSULTANT IMPRESSION: Successful Right internal jugular tunneled central venous catheter placement. > Interpreting Provider: Maria G Mortensen MD on 09/05/2023 2:10 PM Narrative 09/05/2023 2:10 PM CLOTHING CONSULTANT PROCEDURE: ??IR CENTRAL LINE INSERT TUNNEL DATE/TIME OF EXAM: ??09/05/2023 1:57 PM CLINICAL INFORMATION: None relevant/not provided if blank. 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 FLUOROSCOPY DOSE: mGy Reference air kerma (ka,r). System Archive Analyst:Maria G Mortensen MD Student Development Dean:Jakub Eller MD MEDICATIONS: None. ?? Contrast: None [...] This allowed the placement of a 5 Hungarian sheath which in turn allowed the placement [...] evaluation, please review the evaluation forms in [facility]. For details on monitored clinical parameters during the intra-service sedation time, please review the procedure nurse documentation in [facility]. I was present for the Entire procedure Procedure Note Maria G Mortensen MD - 09/05/2023 PROCEDURE: IR CENTRAL LINE INSERT TUNNEL DATE/TIME OF EXAM: 09/05/2023 1:57 PM CLINICAL INFORMATION: None relevant/not provided if blank. 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 FLUOROSCOPY DOSE: mGy Reference air kerma (ka,r). System Archive Analyst:Maria G Mortensen MD Student Development Dean:Jakub Eller MD MEDICATIONS: None. Contrast: None Complications: [...] guidance. This allowedthe placement of a 5 Hungarian sheath which in turn allowed the placement [...] response to care. Intra-service sedation start time [id number] and end time was 1353 during which I was present. Total physician intra-service sedation time was 28 minutes. For details on pre-moderate sedation and post-moderate sedation patient evaluation, please reviewthe evaluation forms in [facility]. For details on monitored clinical parameters during the intra-service sedation time, please review the procedurenurse documentation in [facility]. I was present for the Entire procedure IMPRESSION: Successful Right internal jugular tunneled central venous catheter placement. > Interpreting Provider: Maria G Mortensen MD on 09/05/2023 2:10 PM Cheryl Cronin MD IR ORDERABLES * HEPATITIS C AB SCREEN RFLX NAAT QUANT (09/04/2023 5:20 AM CLOTHING CONSULTANT) Hepatitis C Antibody Non-react easton Non-reac tive 09/04/2023 6:58 AM CLOTHING CONSULTANT [facility] Comment:Hepatitis C Antibody screen [...] Lab Venipuncture / Unknown 09/04/2023 5:20 AM CLOTHING CONSULTANT 09/04/2023 6:05 AM CLOTHING CONSULTANT Graham Beltran MD LAB - CHEMISTRY JON NAIDU [facility] [address] [place] [address], [place] [phone] * HIV-1 HIV-2 ANTIBODY + HIV P24 AG PANEL (09/04/2023 5:20 AM CLOTHING CONSULTANT) HIV Antigen/Antibod y 1 & 2 Non-reacti ve Non-react easton 09/04/2023 6:59 AM CLOTHING CONSULTANT [facility] Comment:No Laboratory eviden ce of HIV infection. Blood BLOOD SPECIMEN / Unknown Lab Venipuncture / Unknown 09/04/2023 5:20 AM CLOTHING CONSULTANT 09/04/2023 6:05 AM CLOTHING CONSULTANT Graham Beltran MD LAB - CHEMISTRY JON NAIDU [facility] Organization Address City/[facility]/ZIP Co de Phone Number [facility] [address] [place] [address], [place] [phone] * MARTHA-GHOTRA VIRUS ANTIBODY TO VCA IGM (09/04/2023 5:20 AM CLOTHING CONSULTANT) Martha-Ghotra Virus Antibody IgM Viral Capsid Antigen <10.0 0.0 - 43.9 U/mL 09/05/2023 2:29 PM CLOTHING CONSULTANT [facility] ([facility]) Comment: INTERPRETIVE INFORMATION: Martha-Ghotra Virus Antibody to ?Viral Capsid Antigen, IgM ??35.9 U/mL or less.......Not Detected ?36.0-43.9 U/mL..........Indeterminate - Repeat testing in ?10-14 days may be helpful. ??44.0 U/mL or greater....Detected Performed By: [facility] [address] [place] [address] Plug And Mold Finisher: Ebenezer Shipman MD, PhD CLIA Number: [id number] Blood BLOOD SPECIMEN / Unknown Lab Venipuncture / Unknown 09/04/2023 5:20 AM CLOTHING CONSULTANT 09/04/2023 6:05 AM CLOTHING CONSULTANT Graham Beltran MD LAB - SEROLOGY ORDER [facility]) [address] [place] [id number], [facility] * (ABNORMAL) HEPATITIS B PANEL (09/04/2023 5:20 AM CLOTHING CONSULTANT) Pathologist [facility] Hepatitis B Virus Surface Antibody Reactive(A ) Non-react easton 09/04/2023 7:08 AM CLOTHING CONSULTANT [facility] Comment: > 12 mIU/mL Hepatitis B surface Antibody (HBsAb). Reactive for HBsAb - individual is considered immune to Hepatitis B Virus infection. Hepatitis B Virus Surface Antigen Non-reacti ve Non-react easton 09/04/2023 7:08 AM CLOTHING CONSULTANT [facility] Hepatitis B Core Virus Antibody IgM Non-reacti ve Non-react easton 09/04/2023 7:08 AM CLOTHING CONSULTANT [facility] Blood BLOOD SPECIMEN / Unknown Lab Venipuncture / Unknown 09/04/2023 5:20 AM CLOTHING CONSULTANT 09/04/2023 6:05 AM CLOTHING CONSULTANT Graham Beltran MD LAB - CHEMISTRY ORDE RABLES [facility] [address] [place] [address], [facility] [phone] * MARTHA-GHOTRA VIRUS QUANT BLOOD STL (09/04/2023 5:19 AM CLOTHING CONSULTANT) [facility] EBV Quant by PCR, Interp Not detected Not detected 09/04/2023 3:06 PM CLOTHING CONSULTANT [facility] Specimen Type Plasma 09/04/2023 3:06 PM CLOTHING CONSULTANT [facility] Blood BLOOD SPECIMEN / Unknown Lab Venipuncture / Unknown 09/04/2023 5:19 AM CLOTHING CONSULTANT 09/04/2023 6:05 AM CLOTHING CONSULTANT Narrative [facility] - 09/04/2023 3:06 PM CLOTHING CONSULTANT DNA isolated from the plasma was analyzed in a qPCR assay to detect and quantify Martha-Ghotra DNA. An internal control is included to evaluate for PCR inhibition. The quantitative range of this assay is 500 IU/mL to 5,000,000 IU/mL. Values below 500 IU/mL will be reported as Detected (<500 IU/mL). ?? This test was developed and its performance characteristics determined by [facility]. ??It has not been cleared or approved [...] Beltran MD LAB - CHEMISTRY JON NAIDU [facility] [address] [place], [place] [address], [facility] [phone] Care Teams Mental Health Assistant Relationship Specialty Start Date End Date Osmar Ragland MD [address] [place] [phone] PCP - General Family Medicine 04/19/24
[2024-10-15 11:42] LABS: Strep Group A RT-PCR NOT DETECTED (Negative)
[2024-10-15 11:51] LABS: SARS-CoV-2 RNA PCR Negative (Negative)
[2024-10-15 11:53] LABS: Influenza A QL RT-PCR Positive (Negative); Influenza B QL RT-PCR Negative (Negative); RSV RNA, RT-PCR Negative (Negative)
== END 2024-10-15 11:03 | disposition home or self-care (01) ==
PROVIDERS: PCP Family Medicine; Visit Provider Family Medicine
DX: J06.9 Acute upper respiratory infection, unspecified (principal)
CPT/HCPCS: 87637; 87651